=== PATIENT | female | born 1955 | race Caucasian/White ===

== ENCOUNTER 2022-07-25 14:41 | Outpatient (REF) | payer MEDICARE, BC, SELFPAY ==
[2022-07-25 16:56] LABS: MANUAL DIFF FLAG NO
[2022-07-25 17:07] LABS: Basophils Percent Auto 0.3 % (0-2); Eosinophils Absolute Auto 0.1 X10*3/uL (0.0-0.4); Eosinophils Percent Auto 0.7 % (0-4); Hematocrit 51.3 % (37.0-47.0); Hemoglobin 16.3 g/dl (12.0-16.0); Imm Gran Abs Auto 0.03 X10*3/uL (0.00-0.03); Imm Gran Pct Auto 0.4 % (0.0-0.4); Lymphocytes Absolute Auto 0.9 X10*3/uL (1.2-4.9); Lymphocytes Percent Auto 12.2 % (20-40); Mean Corpuscular HGB Conc 31.8 g/dl (31.0-35.0); Mean Corpuscular Hemoglobin 29.3 pg (27.0-33.0); Mean Corpuscular Volume 92.1 fL (80.0-98.0); Mean Platelet Volume 8.8 fL (9.4-12.3); Monocytes Absolute Auto 0.3 X10*3/uL (0.1-1.2); Monocytes Percent Auto 4.5 % (2-11); Neutrophils Absolute Auto 5.8 x10*3/uL (2.0-8.3); Neutrophils Percent Auto 81.9 % (45-73); Platelet Count 251 X10*3/uL (160-400); Red Blood Count 5.57 X10*6/uL (4.20-5.50); White Blood Count 7.1 X10*3/uL (4.8-10.8)
[2022-07-25 17:36] LABS: Alanine Aminotransferase 10 U/L (0-31); Alkaline Phosphatase 43 U/L (39-117); Anion Gap 11 (12-20); Aspartate Amino Transferase 13 U/L (5-31); Bilirubin Total 0.6 mg/dL (0.0-1.0); Blood Urea Nitrogen 12 mg/dL (9-16); C Reactive Protein 0.16 mg/dL (< or = 0.50); Calcium 9.5 mg/dL (8.4-10.2); Carbon Dioxide 32 mmol/L (22-29); Chloride 107 mmol/L (96-108); Estimated Glomerular Filt Rate > 60; Glucose Random 123 mg/dL (60-115); Potassium 4.6 mmol/L (3.3-5.1); Rheumatoid Factor 17.9 IU/mL (<15.0); Sodium 145 mmol/L (135-145); Total Protein 6.1 g/dL (6.5-8.0)
[2022-07-25 17:55] LABS: Erythrocyte Sedimentation Rate 2 MM/HR (0-20)
[2022-07-27 08:31] LABS: HBS Num1 0.21 mIU/mL (0-7.99); HBc Num1 0.12 S/CO (0.00-0.79); HBsAGNum1 0.47 S/CO (0.00-0.99); Hepatitis A Antibody IgM 0.15 Index (0-0.79); Hepatitis B Core Antibody Nonreactive (Nonreactive); Hepatitis B Surface Antigen Negative (Negative); ~HepC Num1 0.06 S/CO (0.00-0.79); ~Hepatitis A Antibody IgM Nonreactive (Nonreactive); ~Hepatitis B Surface Antibody NONREACTIVE (Nonreactive); ~Hepatitis C Antibody Nonreactive (Nonreactive)
[2022-07-27 14:42] LABS: Cyclic Citrullinated Peptide <16 UNITS
[2022-07-27 23:33] LABS: TS Negative Control Passed; TS Panel A 0; TS Panel B 0; TS Positive Control Passed; TSpotTB Negative (Negative)
[2022-07-27 23:48] LABS: Prot Elec - Albumin 4.2 g/dL (3.8-4.8); Prot Elec - Alpha1 0.3 g/dL (0.2-0.3); Prot Elec - Alpha2 0.9 g/dL (0.5-0.9); Prot Elec - Beta 1 0.4 g/dL (0.4-0.6); Prot Elec - Beta 2 0.2 g/dL (0.2-0.5); Prot Elec - Gamma 0.5 g/dL (0.8-1.7); Prot Elec - Total Protein 6.6 g/dL (6.1-8.1)
[2022-07-30 14:03] LABS: IgA 104 mg/dL (70-320); IgG 582 mg/dL (600-1540); IgM 43 mg/dL (50-300)
== END 2022-07-25 14:42 | disposition home or self-care (01) ==
LOC: HO.LAB 14:41
PROVIDERS: PCP Registered Nurse; Visit Provider Student in an Organized Health Care Education/Training Program
DX: M05.79 Rheumatoid arthritis with rheumatoid factor of multiple sites without organ or systems involvement (principal); M25.462 Effusion, left knee; M25.461 Effusion, right knee; M25.562 Pain in left knee; M25.561 Pain in right knee; Z11.59 Encounter for screening for other viral diseases; Z11.7 Encounter for testing for latent tuberculosis infection; Z79.899 Other long term (current) drug therapy; Z72.89 Other problems related to lifestyle
CPT/HCPCS: 36415; 80053; 82784; 84165; 85025; 85652; 86140; 86200; 86334; 86431; 86481; 86704; 86706; 86709; 86803; 87340; 99202

== ENCOUNTER 2022-12-27 15:33 | Outpatient (AMB) | payer MEDICARE, BC, SELFPAY ==
--- NOTE | 2022-12-27 15:47 | MHC.OFFVIS ---
Intake Vital Signs 12/27/22 15:48 Height 5 ft 6 in Weight 156 lb 11.979 oz BMI 25.3 BP 144/78 H Blood Pressure Location Rt brachial Position Sitting Pulse 83 Pulse Source Pulse Oximeter Temp 98.8 F Temp Source Skin Pulse Oximetry (%) 93 Intake Visit Reasons: RA Intake Note: Pt seen today for RA follow up. Clerk Funeral Detail Required: No Accompanied by: Spouse Allergies codeine Allergy (Mild, Verified 12/27/22 15:56) Paleness Gold Salts Allergy (Mild, Verified 12/27/22 15:56) Rash Sulfa (Sulfonamide Antibiotics) Allergy (Mild, Verified 12/27/22 15:56) Swelling Medication List - Last Reconciled 12/27/22 by Willi Wells MD apixaban (Eliquis) 5 mg PO BID biotin 1 mg PO DAILY carvedilol 12.5 mg PO BID cholecalciferol (vitamin D3) 10 mcg PO DAILY escitalopram oxalate 10 mg PO DAILY estradiol 0.01%(0.1mg/gram) grams vaginal NEEDED PRN famotidine 40 mg PO BEDTIME fluticasone propionate 50 mcg/actuation 1 spray intranasal DAILY folic acid 1 mg PO DAILY levothyroxine 88 mcg PO DAILY lidocaine 5% 1 patch topical DAILY lorazepam 0.5 mg PO Q4H PRN methotrexate sodium 15 mg (6 x 2.5 mg) PO QWEEK morphine concentrate 10 mg PO Q8H PRN morphine ER 30 mg PO BID ondansetron 4 mg PO NEEDED pantoprazole 40 mg PO DAILY potassium chloride ER 20 mEq PO BID prednisone 10 mg PO DAILY rituximab-abbs 1,000 mg (100 mL) IV [id number] sennosides 8.6 mg PO BEDTIME syringe with needle (BD Luer-Joselin Syringe) As directed vibegron (Gemtesa) 75 mg PO DAILY HPI HPI Comments History of Present Illness Details 67-year-old female with longstanding deforming RA returns for follow-up. She got her rituximab infusions in 08/2022 and infusions were uneventful. Patient states that she has been having worsening left-sided neck pain associated with left upper shoulder pain, tingling and burning radiating up her the left side of her head. She has difficulty with neck rotation. Her joint pain otherwise is unchanged. Initial history: This is a 67-year-old female with complex past medical history including standing deforming RA who presents as a new patient. Her previous account relationship manager left the practice. Her most recent account relationship manager was Dr. Davis. She stated that she was diagnosed with rheumatoid arthritis back in the 70s. She had an allergic reaction to gold. She was on Remicade, Humira, Enbrel, Orencia. All of which worked for a while then lost their efficacy. She was on Xeljanz for a few years then she developed drug-induced lupus erythematosus per patient. She had diffuse blistering skin rash and hair loss. At that time 6 medicines were discontinued including Xeljanz. Most recently she received rituximab towards the end of 2020 and another rituximab course in 09/2021. Per notes patient seen to have some improvement with rituximab Patient has a history of recurrent diverticulitis. Patient has severe deforming RA s/p multiple surgeries including right elbow replacement, bilateral hand tendon surgeries, right hand MCPs surgeries, right ankle fusion. She had been on prednisone as a monotherapy for years. She is currently on 10 mg daily. She gets recurrent iritis that she treats with topical steroid eyedrops. She states that she gets those recurrent iritis every few months. Patient has been using wheelchair since 2019 due to bilateral knee pain. States that her knees give out . She can walk 1/8of a mile per on a good day. She states that the majority of her joint pain over the last few years has been her knees. She received multiple intra-articular steroid injections last year with some relief. [facility] Medical History Afib Diverticulitis Diverticulosis Drug-induced lupus erythematosus Encounter for testing for latent tuberculosis infection Endometriosis Lacunar infarction Osteopenia of multiple sites Primary osteoarthritis of both knees Rheumatoid arthritis involving multiple sites with positive rheumatoid factor Schatzki's ring Vitamin D deficiency Surgical History H/O cataract extraction H/O elbow replacement H/O hand surgery H/O tubal ligation H/O unilateral oophorectomy History of ankle surgery History of bladder suspension procedure History of cholecystectomy Family History Mother Diabetes Sister Diabetes Pancreatic cancer Father Pancreatic cancer Seizures Social History Household Members: Spouse Alcohol intake: never Patient Tobacco Use Status: Never used Tobacco Current occupational status: disabled Review of Systems ENT Reports neck pain Musc Reports arthralgias, Reports neck pain, Reports radiating pain into limb and Reports stiffness Physical Exam Vital Signs: Last Vital Signs Temp 98.8 F 12/27/22 15:48 Pulse 83 12/27/22 15:48 BP 144/78 H 12/27/22 15:48 Pulse Ox 93 12/27/22 15:48 BMI result Body Mass Index 25.3 Const General: cooperative, healthy appearing and comfortable Nutritional Appearance: overweight Orientation/consciousness: patient oriented x3 Limitations: wheelchair HEENT Head: Yes normocephalic and Yes atraumatic Resp Effort & Inspection: normal respiratory effort and able to speak in complete sentences Neuro General: patient oriented x3 Extrem Other: Extensive RA deformities and multiple surgical procedures Right elbow contracture s/p arthroplasty Right wrist contracture s/p surgery, barely any flexion or extension Bilateral ulnar deviation at the MCPs. 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 L-spine-1.6? Right femoral neck-1.9? Right total hip-2.0? Left femoral neck-1.7? Left total hip -2.2 Assessment & Plan Assessment & Plan (1) Rheumatoid arthritis involving multiple sites with positive rheumatoid factor: Comment: dx in 1970s Gold--> allergic reaction HCQ ineffective MTX caused diarrhea and GI upset even when switched to SQ Remicade, Enbrel, Humira, all worked for sometime then lost their efficacy Orencia Celebrex not effective Xeljanz effective for a few years then DC due to DILE (is unclear we whether it was because Xeljanz as 5 other medicines were stopped) RTX given end of 2020 & 09/2021. 08/2022 effective Code(s): M05.79 - Rheumatoid arthritis with rheumatoid factor of multiple sites without organ or systems involvement Plan: This is a 67 year female with longstanding severe erosive RA s/p multiple surgical procedures who presents for follow-up Patient has tried and failed multiple DMARDs. Please see above. She is currently on rituximab infusions and methotrexate 15 mg weekly and folic acid daily. I do not see any active synovitis today. Recent labs showed normal inflammatory markers Continue rituximab infusions. Plan to repeat infusions every 6-8 months. Check labs before next visit in 3 months (2) Cervicalgia: Code(s): M54.2 - Cervicalgia Plan: Neck muscle spasm on exam today. Will prescribe Flexeril. Advised patient that the combination of muscle relaxants and her other meds can cause lightheadedness/dizziness. Advised patient to stop Flexeril if she develops side effects. Patient has lidocaine patches at home that she uses for her knees. Advised patient to use it on the painful area in her neck. Patient likely has underlying degenerative arthritis of her neck. Will refer patient to pain management for further evaluation (3) Osteopenia of multiple sites: Code(s): M85.89 - Other specified disorders of bone density and structure, multiple sites Plan: DEXA 2020 showed osteopenia. Will repeat DEXA (4) Poor peripheral circulation: Code(s): R09.89 - Other specified symptoms and signs involving the circulatory and respiratory systems Plan: Bilateral purplish cool feet. Advised patient to follow-up with her PCP to evaluate for peripheral vascular disease Plan I spent 46 minutes reviewing patient's chart, evaluating patient, ordering diagnostic workup, counseling patient and documenting in the chart Orders: Orders Comprehensive Met. Panel 3 Months M05.79 - Rheumatoid arthritis with rheumatoid factor of multiple sites without organ or systems involvement C Reactive Protein 3 Months M05.79 - Rheumatoid arthritis with rheumatoid factor of multiple sites without organ or systems involvement Complete Blood Count Auto Diff 3 Months M05.79 - Rheumatoid arthritis with rheumatoid factor of multiple sites without organ or systems involvement Erythrocyte Sedimentation Rate 3 Months M05.79 - Rheumatoid arthritis with rheumatoid factor of multiple sites without organ or systems involvement Immunoglobulins,IgG IgA IgM 3 Months M05.79 - Rheumatoid arthritis with rheumatoid factor of multiple sites without organ or systems involvement XR DEXA axial skeleton Today M85.89 - Other specified disorders of bone density and structure, multiple sites, Z79.52 - detention (current) use of systemic steroids Referrals Pain Management Referral M54.2 - Cervicalgia Medications: New cyclobenzaprine Take 1 tab 3 times a day for 3 days then take 1 tab nightly for 1 week then stop. Can cause dizziness/lightheadedness. If you experience such side effects 16 tabs 0RF Coding Level of Care Code Est Pt Level 5 (32144) Diagnoses Rheumatoid arthritis involving multiple sites with positive rheumatoid factor M05.79 Cervicalgia M54.2 Osteopenia of multiple sites M85.89 Poor peripheral circulation R09.89
[2022-12-27 15:48] VITALS: BP 144/78; PULSE 83; TEMP 37.1; O2SAT 93; BMI 25.3
== END 2022-12-27 16:27 | disposition home or self-care (01) ==
PROVIDERS: PCP Registered Nurse; Visit Provider Student in an Organized Health Care Education/Training Program
DX: M05.79 Rheumatoid arthritis with rheumatoid factor of multiple sites without organ or systems involvement (principal); M54.2 Cervicalgia; M85.89 Other specified disorders of bone density and structure, multiple sites; R09.89 Other specified symptoms and signs involving the circulatory and respiratory systems
CPT/HCPCS: 99215

== ENCOUNTER → 2022-12-27 15:33 | Outpatient (BNVA) | payer MEDICARE, BC, SELFPAY | PROVIDERS: PCP Registered Nurse; Visit Provider Student in an Organized Health Care Education/Training Program | DX: M05.79 Rheumatoid arthritis with rheumatoid factor of multiple sites without organ or systems involvement (principal); M54.2 Cervicalgia; M85.89 Other specified disorders of bone density and structure, multiple sites; R09.89 Other specified symptoms and signs involving the circulatory and respiratory systems | CPT/HCPCS: 99212 ==

== ENCOUNTER 2023-01-10 13:43 | Outpatient (AMB) | payer MEDICARE, BC, SELFPAY ==
--- NOTE | 2023-01-10 13:50 | MHC.OFFVIS ---
Intake Vital Signs 01/10/23 13:56 Height 5 ft 6 in Weight 160 lb 2 oz BMI 25.8 BP 187/85 H Blood Pressure Location Rt brachial Position Sitting Pulse Source Pulse Oximeter Pulse Oximetry (%) 97 Oxygen Delivery Method Room Air Intake Visit Reasons: Cervicalgia Educational Director Required: No Accompanied by: Spouse Allergies codeine Allergy (Mild, Verified 01/10/23 13:58) Paleness Gold Salts Allergy (Mild, Verified 01/10/23 13:58) Rash Sulfa (Sulfonamide Antibiotics) Allergy (Mild, Verified 01/10/23 13:58) Swelling HPI Cervicalgia HPI Details Patient is a pleasant 67 years old female with history of longstanding severe erosive and deforming RA s/p multiple surgical procedures including right elbow replacement, bilateral hand tendon surgeries, right hand MCPs surgeries, right ankle fusion, presents today for initial evaluation of left sided neck pain associated with left upper shoulder pain. Her pain also radiates into her left occipital region and left shoulder with numbness, tinglings and throbbing sensations. Patient is accompanied by her and she has arrived in a wheelchair. Denies any recent injury, trauma, or falls. Patient has difficulty with neck rotation, especially on the left. Patient has multiple joint pain related to RA and has been using a wheelchair since 2019, especially due to bilateral knee pain. She is able to get out of WC without difficulty but with slow, antalgic gait. Pain affects her daily activities, functioning, sleep, mood and quality of life. She has tried to manage her pain with acupuncture, ice therapy, massage, home exercise program with neck stretching exercises, and muscle relaxants with mild pain relief. Patient reports she was told by her neurologist Dr. Schaefer in [facility] that her symptoms are consistent with occipital neuralgia. Denies any recent cough, cold, infection, fever, weight loss, vision changes, shortness of breaths, chest pain, headaches, any bladder or bowel incontinence or saddle anesthesia. Location Left side of neck radiates down left shoulder and occipital region Duration For 4 months, no inciting events Characteristics of symptom or complaint Aching, spasming, numb, throbbing, shocking Aggravating or associated factors Any neck movements, worse with extension and side rotations Relieving factors Flexeril, ice therapy, laying down, morphine, Tylenol, lidocaine patches Treatment Acupunture, massage, home stretching exercises COUNTS INCLUDE 234 BEDS AT THE [facility] Medical History Lacunar infarction Diverticulitis Diverticulosis Endometriosis Schatzki's ring Drug-induced lupus erythematosus Encounter for testing for latent tuberculosis infection Afib Osteopenia of multiple sites Rheumatoid arthritis involving multiple sites with positive rheumatoid factor Vitamin D deficiency Primary osteoarthritis of both knees Surgical History H/O unilateral oophorectomy H/O cataract extraction History of bladder suspension procedure H/O elbow replacement H/O tubal ligation History of cholecystectomy History of ankle surgery H/O hand surgery Family History Mother Diabetes Sister Diabetes Pancreatic cancer Father Pancreatic cancer Seizures Social History Household Members: Spouse Alcohol intake: never Patient Tobacco Use Status: Never used Tobacco Current occupational status: disabled Review of Systems Const All systems reviewed & are unremarkable except as noted in HPI and below Physical Exam Vital Signs: Last Vital Signs BP 187/85 H 01/10/23 13:56 Pulse Ox 97 01/10/23 13:56 Oxygen Delivery Method Room Air 01/10/23 13:56 BMI result Body Mass Index 25.8 General: Appears afebrile. Alert and oriented. Mood and affect appropriate. Follows and participates in conversation appropriately. Respiratory effort is unlabored. No cough. Patient is sitting comfortably in wheelchair with head turned mostly to the right side. Neck Other: Patient with decreased cervical ROM in all planes, especially with left lateral rotation. Reports increased pain with cervical extension and flexion. Spurling compression test negative. Pain is unchanged by Spurling maneuver with retraction. Elvey's tension test positive on the left, with radiation of pain into left shoulder and lateral upper arm and left occipital region. Lhermitte's test was negative. DTR intact, +1 and symmetrical. Patient demonstrated 4/5 motor strength of bilateral upper extremities. Bilateral hand/fingers deformities due to advanced RA. 2 + radial pulses. Significant tightness throughout left upper trapezius as well as TTP throughout bilateral upper trapezius muscles. No paravertebral tenderness over facet joint on affected side. Neck: Yes normal visual inspection, Yes no meningeal signs, Yes supple, No anterior neck swelling and Yes no JVD Back/Spine/Pelvis Cervical Spine: loss of normal cervical lordosis, cervical muscular tenderness, pain with cervical ROM, cervical spasm and No Cervical spine tenderness Thoracic/Lumbar Spine: thoracic and lumbar spine normal to inspection, pain with thoraco-lumbar ROM, thoraco-lumbar ROM limited, No thoracic spinal tenderness and lumbar spinal tenderness Neuro General: no meningeal signs Results Reviewed Results Reviewed: No imaging reports are available for review today. Assessment & Plan Assessment & Plan (1) Osteopenia of multiple sites: Code(s): M85.89 - Other specified disorders of bone density and structure, multiple sites (2) Cervical spondylosis: Code(s): M47.812 - Spondylosis without myelopathy or radiculopathy, cervical region (3) Cervical radicular pain: Code(s): M54.12 - Radiculopathy, cervical region (4) Occipital neuralgia: Code(s): M54.81 - Occipital neuralgia Plan 1. Cervical spine imaging to assess degree of degenerative changes, any subluxation, listhesis or pars defects. 2. Schedule Diagnostic Right C3-[id number] Medial Branch Blocks with local and fluoroscopy for neck/occipital symptoms for potential Sprint PNS trial. Informational pamphlets provided. All questions and concerns have been answered and patient agreed with the plan. Follow up after injections and sooner if needed. Anticoagulation: Patient on anticoagulation (Eliquis) and instructions given on when to pause with prescribing physician permission. Justification for interventional therapy: ? Patient with average pain > 6/10 ? Patient has exhausted conservative therapy, HEP, massage, acupuncture, opioid medication, muscle relaxant The risks, consequences, alternatives, and benefits of various treatment options were discussed with the patient in great detail, including conservative management, injections and procedures. Orders: Orders XR cervical spine 3V Today M47.812 - Spondylosis without myelopathy or radiculopathy, cervical region, M54.12 - Radiculopathy, cervical region, M54.2 - Cervicalgia Coding Level of Care Code New Pt Level 4 (20220) Diagnoses Osteopenia of multiple sites M85.89 Cervical spondylosis M47.812 Cervical radicular pain M54.12 Occipital neuralgia M54.81
[2023-01-10 13:56] VITALS: BP 187/85; O2SAT 97; BMI 25.8
== END 2023-01-10 14:54 | disposition home or self-care (01) ==
PROVIDERS: PCP Registered Nurse; Visit Provider Nurse Practitioner Family
DX: M85.89 Other specified disorders of bone density and structure, multiple sites (principal); M47.812 Spondylosis without myelopathy or radiculopathy, cervical region; M54.12 Radiculopathy, cervical region; M54.81 Occipital neuralgia
CPT/HCPCS: 99204

== ENCOUNTER → 2023-01-10 13:43 | Outpatient (BNVA) | payer MEDICARE, BC, SELFPAY | PROVIDERS: PCP Registered Nurse; Visit Provider Nurse Practitioner Family ==

== ENCOUNTER 2023-01-31 14:14 | Outpatient (REF) | payer MEDICARE, BC, SELFPAY | END 2023-01-31 14:15 | disposition home or self-care (01) | LOC: HO.MAMMO 14:14 | PROVIDERS: Visit Provider Student in an Organized Health Care Education/Training Program | DX: Z13.820 Encounter for screening for osteoporosis (principal); M85.89 Other specified disorders of bone density and structure, multiple sites; Z79.52 Long term (current) use of systemic steroids; Z78.0 Asymptomatic menopausal state | CPT/HCPCS: 77080 ==

== ENCOUNTER 2023-03-08 14:07 | Outpatient (AMB) | payer MEDICARE, BC, SELFPAY ==
--- NOTE | 2023-03-08 14:13 | MHC.OFFVIS ---
Intake Vital Signs 03/08/23 14:14 Height 5 ft 6 in Weight 154 lb 1.65 oz BMI 24.9 BP 122/88 Blood Pressure Location Rt brachial Position Sitting Pulse 93 Pulse Source Pulse Oximeter Temp 98.6 F Temp Source Skin Pulse Oximetry (%) 95 Intake Visit Reasons: RA Intake Note: Pt last seen 12/27/22, presents today for follow up and test results. She did not complete bloodwork ordered at last visit. Voicemail left on 03/06/23 Community Educator Required: No Accompanied by: Spouse Allergies codeine Allergy (Mild, Verified 03/08/23 14:18) Paleness Gold Salts Allergy (Mild, Verified 03/08/23 14:18) Rash Sulfa (Sulfonamide Antibiotics) Allergy (Mild, Verified 03/08/23 14:18) Swelling Medication List - Last Reconciled 03/08/23 by Willi Wells MD apixaban (Eliquis) 5 mg PO BID biotin 1 mg PO DAILY carvedilol 12.5 mg PO BID cholecalciferol (vitamin D3) 10 mcg PO DAILY cyclobenzaprine 5 mg PO TID PRN escitalopram oxalate 10 mg PO DAILY estradiol 0.01%(0.1mg/gram) grams vaginal NEEDED PRN famotidine 40 mg PO BEDTIME fluticasone propionate 50 mcg/actuation 1 spray intranasal DAILY folic acid 1 mg PO DAILY levothyroxine 88 mcg PO DAILY lidocaine 5% 1 patch topical DAILY lorazepam 0.5 mg PO Q4H PRN methotrexate sodium 15 mg (6 x 2.5 mg) PO QWEEK ondansetron 4 mg PO NEEDED pantoprazole 40 mg PO DAILY potassium chloride ER 20 mEq PO BID prednisone 10 mg PO DAILY rituximab-abbs 1,000 mg (100 mL) IV [id number] sennosides 8.6 mg PO BEDTIME syringe with needle (BD Luer-Joselin Syringe) As directed vibegron (Gemtesa) 75 mg PO DAILY HPI HPI Comments History of Present Illness Details 68-year-old female with longstanding deforming RA returns for follow-up. She got her rituximab infusions in 08/2022 and infusions were uneventful. Last visit patient was having significant significant neck muscle pain and spasm. States that the only thing that is helping is the Flexeril. She has been taking Flexeril 5 mg 2-3 times a day with moderate relief. Denies any side effects related to it. She stated that she saw pain management and a nerve block trial was suggested. She then received a call from [facility]. Patient states that she has difficulty leaving the house. She would prefer to do either at home physical therapy or go straight to the nerve block trial. With regards to her RA. She is doing well overall. She denies any swollen joints. Patient states that she was started on morphine 15 mg multiple times a day 2-3 years ago as she was on hospice. She states that she was taking morphine 15 mg twice a day for awhile. Three weeks ago she stopped taking the morning dose, and was doing well. 2-3 days ago she also stopped the night dose and has been having some opioid withdrawal symptoms with night sweats. Initial history: This is a 67-year-old female with complex past medical history including standing deforming RA who presents as a new patient. Her previous pile header left the practice. Her most recent pile header was Dr. Davis. She stated that she was diagnosed with rheumatoid arthritis back in the 70s. She had an allergic reaction to gold. She was on Remicade, Humira, Enbrel, Orencia. All of which worked for a while then lost their efficacy. She was on Xeljanz for a few years then she developed drug-induced lupus erythematosus per patient. She had diffuse blistering skin rash and hair loss. At that time 6 medicines were discontinued including Xeljanz. Most recently she received rituximab towards the end of 2020 and another rituximab course in 09/2021. Per notes patient seen to have some improvement with rituximab Patient has a history of recurrent diverticulitis. Patient has severe deforming RA s/p multiple surgeries including right elbow replacement, bilateral hand tendon surgeries, right hand MCPs surgeries, right ankle fusion. She had been on prednisone as a monotherapy for years. She is currently on 10 mg daily. She gets recurrent iritis that she treats with topical steroid eyedrops. She states that she gets those recurrent iritis every few months. Patient has been using wheelchair since 2019 due to bilateral knee pain. States that her knees give out . She can walk 1/8of a mile per on a good day. She states that the majority of her joint pain over the last few years has been her knees. She received multiple intra-articular steroid injections last year with some relief. [facility] Medical History Lacunar infarction Diverticulitis Diverticulosis Endometriosis Schatzki's ring Drug-induced lupus erythematosus Encounter for testing for latent tuberculosis infection Afib Osteopenia of multiple sites Rheumatoid arthritis involving multiple sites with positive rheumatoid factor Vitamin D deficiency Primary osteoarthritis of both knees Surgical History H/O unilateral oophorectomy H/O cataract extraction History of bladder suspension procedure H/O elbow replacement H/O tubal ligation History of cholecystectomy History of ankle surgery H/O hand surgery Family History Mother Diabetes Sister Diabetes Pancreatic cancer Father Pancreatic cancer Seizures Social History Household Members: Spouse Alcohol intake: never Patient Tobacco Use Status: Never used Tobacco Current occupational status: disabled Review of Systems ENT Reports neck pain Musc Reports arthralgias, Reports neck pain, Reports radiating pain into limb and Reports stiffness Physical Exam Vital Signs: Last Vital Signs Temp 98.6 F 03/08/23 14:14 Pulse 93 03/08/23 14:14 BP 122/88 03/08/23 14:14 Pulse Ox 95 03/08/23 14:14 BMI result Body Mass Index 24.9 Const General: cooperative, healthy appearing and comfortable Nutritional Appearance: overweight Orientation/consciousness: patient oriented x3 Limitations: ambulation with cane HEENT Head: Yes normocephalic and Yes atraumatic Mouth: moist mucous membranes Neck Other: Patient has almost normal range of motion of her neck today Resp Effort & Inspection: normal respiratory effort and able to speak in complete sentences Auscultation: clear to auscultation bilaterally Cardio Rate: regular rate Rhythm: regular rhythm Neuro General: patient oriented x3 Extrem Other: Extensive RA deformities and multiple surgical procedures Right elbow contracture s/p arthroplasty Right wrist contracture s/p surgery, barely any flexion or extension Bilateral ulnar deviation at the MCPs. Good proposition player strength bilaterally No active synovitis today. Good proposition player strength bilaterally Normal nailfold capillaroscopy Right ankle fusion no ankle swelling tenderness or warmth Left ankle without swelling tenderness or erythema bilateral fibular deviation of her toes No MTP tenderness Negative MTP squeeze test Patient is using a cane today rather than a walker Results Reviewed Results Reviewed: DEXA 04/18? L-spine-1.6? Right femoral neck-1.9? Right total hip-2.0? Left femoral neck-1.7? Left total hip -2.2 DEXA 01/2023 L-spine T-score-0.7? Left femoral neck T-score -1.4 Left femur total T-score -2.2 FRAX 29.5 for major osteoporosis fracture? Hip fracture 4.5% Assessment & Plan Assessment & Plan (1) Rheumatoid arthritis involving multiple sites with positive rheumatoid factor: Comment: dx in 1970s Gold--> allergic reaction HCQ ineffective MTX caused diarrhea and GI upset even when switched to SQ Remicade, Enbrel, Humira, all worked for sometime then lost their efficacy Orencia Celebrex not effective Xeljanz effective for a few years then DC due to DILE (is unclear we whether it was because Xeljanz as 5 other medicines were stopped) RTX given end of 2020 & 09/2021. 08/2022 effective Code(s): M05.79 - Rheumatoid arthritis with rheumatoid factor of multiple sites without organ or systems involvement Plan: This is a 68 year female with longstanding severe erosive RA s/p multiple surgical procedures who presents for follow-up Patient has tried and failed multiple DMARDs. Please see above. She is currently on rituximab infusions and methotrexate 15 mg weekly, prednisone 10 mg daily and folic acid daily. She is doing well on this combination. Most recent rituximab was 08/2022. Patient is due for rituximab this month. Will arrange for repeat infusion Planned to start tapering prednisone next visit Check labs soon and before next visit in 3 months (2) Cervicalgia: Code(s): M54.2 - Cervicalgia Plan: Last visit patient had significant neck muscle spasm which is likely due to underlying degenerative arthritis of her cervical spine. There might be a component of occipital migraine. Symptoms are much improved with Flexeril 5 mg t.i.d.. Patient denies any side effects related to it. She can continue with flexeril 5 mg t.i.d.. She was evaluated by Pain Management and a nerve block was suggested. (3) Osteopenia of multiple sites: Code(s): M85.89 - Other specified disorders of bone density and structure, multiple sites Plan: DEXA 01/2023 showed osteopenia with a high FRAX score. Patient did mention that she was on Fosamax for 2 years in the past. Will need to restart antiresorptive therapy. ReStart alendronate 70 mg weekly. Plan to repeat DEXA in the fall of 2024. (4) Opiate withdrawal: Code(s): F11.93 - Opioid use, unspecified with withdrawal Plan: A few years ago patient was told that she was a hospice case. She was prescribed morphine. Most recently she was on morphine 15 mg extended release Twice daily. She stopped the morning dose 3 weeks ago and was doing well, she stopped the night does as well 3 nights ago and was having some mild opioid withdrawal symptoms such as night sweats. I advised patient to keep holding the morphine for 1-2 more weeks, can restart the nightly dose if the withdrawal symptoms are not improving. Advised patient to discuss it with pain management next visit (5) Immunization counseling: Code(s): Z71.85 - Encounter for immunization safety counseling Plan: Discussed ACR vaccination guidelines for understood autoimmune rheumatic disease on immune suppression. Patient is planning to get the new COVID booster and flu vaccines in the same day. Advised patient to get the vaccines done 2 weeks before rituximab infusion Plan I spent 46 minutes reviewing patient's chart, evaluating patient, ordering diagnostic workup, counseling patient and documenting in the chart Orders: Orders Complete Blood Count Auto Diff 3 Months M05.79 - Rheumatoid arthritis with rheumatoid factor of multiple sites without organ or systems involvement Comprehensive Met. Panel 3 Months M05.79 - Rheumatoid arthritis with rheumatoid factor of multiple sites without organ or systems involvement C Reactive Protein 3 Months M05.79 - Rheumatoid arthritis with rheumatoid factor of multiple sites without organ or systems involvement Complete Blood Count Auto Diff Today M05.79 - Rheumatoid arthritis with rheumatoid factor of multiple sites without organ or systems involvement Comprehensive Met. Panel Today M05.79 - Rheumatoid arthritis with rheumatoid factor of multiple sites without organ or systems involvement C Reactive Protein Today M05.79 - Rheumatoid arthritis with rheumatoid factor of multiple sites without organ or systems involvement Erythrocyte Sedimentation Rate Today M05.79 - Rheumatoid arthritis with rheumatoid factor of multiple sites without organ or systems involvement Erythrocyte Sedimentation Rate 3 Months M05.79 - Rheumatoid arthritis with rheumatoid factor of multiple sites without organ or systems involvement Immunofixation Pnl, Serum Today M05.79 - Rheumatoid arthritis with rheumatoid factor of multiple sites without organ or systems involvement Protein Electrophoresis, Serum Today M05.79 - Rheumatoid arthritis with rheumatoid factor of multiple sites without organ or systems involvement Medications: New alendronate Take 1 tab once weekly, 1st thing in the morning, on an empty stomach, with a large glass of water (at least 6 oz) and stay upright for 30 minutes 70 mg PO QWEEK 12 tabs 1RF Refilled cyclobenzaprine 5 mg PO TID PRN 90 tabs 2RF muscle spasm Coding Level of Care Code Est Pt Level 5 (14814) Diagnoses Rheumatoid arthritis involving multiple sites with positive rheumatoid factor M05.79 Cervicalgia M54.2 Osteopenia of multiple sites M85.89 Opiate withdrawal F11.93 Immunization counseling Z71.85
[2023-03-08 14:14] VITALS: BP 122/88; PULSE 93; TEMP 37; O2SAT 95; BMI 24.9
== END 2023-03-08 15:07 | disposition home or self-care (01) ==
PROVIDERS: PCP Registered Nurse; Visit Provider Student in an Organized Health Care Education/Training Program
DX: M05.79 Rheumatoid arthritis with rheumatoid factor of multiple sites without organ or systems involvement (principal); M54.2 Cervicalgia; M85.89 Other specified disorders of bone density and structure, multiple sites; F11.93 Opioid use, unspecified with withdrawal; Z71.85 Encounter for immunization safety counseling
CPT/HCPCS: 99215

== ENCOUNTER 2023-03-08 14:07 | Outpatient (REF) | payer MEDICARE, BC, SELFPAY ==
[2023-03-08 15:34] LABS: MANUAL DIFF FLAG NO
[2023-03-08 16:19] LABS: Basophils Percent Auto 0.4 % (0-2); Eosinophils Absolute Auto 0.1 X10*3/uL (0.0-0.4); Hemoglobin 17.7 g/dl (12.0-16.0); Imm Gran Abs Auto 0.06 X10*3/uL (0.00-0.03); Imm Gran Pct Auto 0.5 % (0.0-0.4); Lymphocytes Absolute Auto 1.4 X10*3/uL (1.2-4.9); Lymphocytes Percent Auto 12.1 % (20-40); Mean Corpuscular HGB Conc 32.1 g/dl (31.0-35.0); Mean Corpuscular Hemoglobin 30.8 pg (27.0-33.0); Mean Corpuscular Volume 95.8 fL (80.0-98.0); Mean Platelet Volume 9.1 fL (9.4-12.3); Monocytes Absolute Auto 0.7 X10*3/uL (0.1-1.2); Monocytes Percent Auto 6.2 % (2-11); Neutrophils Absolute Auto 8.9 x10*3/uL (2.0-8.3); Neutrophils Percent Auto 79.8 % (45-73); Platelet Count 303 X10*3/uL (160-400); Red Blood Count 5.75 X10*6/uL (4.20-5.50); Red Cell Distribution Width 14.4 % (11.0-16.0); White Blood Count 11.1 X10*3/uL (4.8-10.8)
[2023-03-08 16:22] LABS: Hematocrit 55.1 % (37.0-47.0)
[2023-03-08 16:44] LABS: Alanine Aminotransferase 18 U/L (0-31); Albumin Level 4.4 g/dL (3.5-5.0); Alkaline Phosphatase 51 U/L (39-117); Anion Gap 16 (12-20); Aspartate Amino Transferase 23 U/L (5-31); Bilirubin Total 0.5 mg/dL (0.0-1.0); Blood Urea Nitrogen 20 mg/dL (9-16); C Reactive Protein 0.11 mg/dL (< or = 0.50); Calcium 10.3 mg/dL (8.4-10.2); Carbon Dioxide 25 mmol/L (22-29); Chloride 109 mmol/L (96-108); Estimated Glomerular Filt Rate 60; Glucose Random 100 mg/dL (60-115); Potassium 4.6 mmol/L (3.3-5.1); Sodium 145 mmol/L (135-145); Total Protein 7.5 g/dL (6.5-8.0)
[2023-03-08 17:06] LABS: Erythrocyte Sedimentation Rate 1 MM/HR (0-20)
== END 2023-03-08 14:08 | disposition home or self-care (01) ==
LOC: HO.LAB 14:07
PROVIDERS: PCP Registered Nurse; Visit Provider Student in an Organized Health Care Education/Training Program
DX: M05.79 Rheumatoid arthritis with rheumatoid factor of multiple sites without organ or systems involvement (principal); M54.2 Cervicalgia; M85.89 Other specified disorders of bone density and structure, multiple sites; F11.93 Opioid use, unspecified with withdrawal; Z71.82 Exercise counseling
CPT/HCPCS: 36415; 80053; 82784; 84165; 85025; 85652; 86140; 86334; 99212

== ENCOUNTER 2023-03-14 11:38 | Outpatient (REF) | payer MEDICARE, BC, SELFPAY ==
--- NOTE | ~2023-03-14 | XR_ITS ---
EXAMINATION: XR CERVICAL SPINE CLINICAL INFORMATION: Cervical radiculopathy. COMPARISON: None available. TECHNIQUE: Frontal, odontoid and lateral views of the cervical spine were obtained. FINDINGS: There is bony demineralization. There is a slight cervicothoracic levoscoliosis. At C3-C4, there is moderate disc space narrowing. At C5-C6 and C6-C7, there is mild posterior disc space narrowing, with spondylosis. The remaining disc spaces are well-maintained. No acute fracture or spondylolisthesis is seen. The posterior elements are intact. The dens is intact. No prevertebral soft tissue swelling is seen. XR/XR cervical spine 3V IMPRESSION: 1. There is moderate degenerative disc disease at C3-C4, and moderately severe degenerative disc disease seen at C5-C6 and C6-C7. 2. There is a slight cervicothoracic levoscoliosis.
== END 2023-03-14 11:39 | disposition home or self-care (01) ==
LOC: HO.XRAY 11:38
PROVIDERS: PCP Registered Nurse; Visit Provider Nurse Practitioner Family
DX: M47.812 Spondylosis without myelopathy or radiculopathy, cervical region (principal); M54.2 Cervicalgia; M54.12 Radiculopathy, cervical region
CPT/HCPCS: 72040

== ENCOUNTER 2023-03-14 11:39 | Outpatient (AMB) | payer MEDICARE, BC, SELFPAY ==
[2023-03-14 11:39] VITALS: BMI 25.8
--- NOTE | 2023-03-14 11:39 | A.OFFVIS_ITS ---
Intake Vital Signs 3 03/14/23 11:39 Height 5 ft 6 in Weight 160 lb BMI 25.8 Intake Visit Reasons: follow up denial Allergies codeine Allergy (Mild, Verified 03/14/23 11:40) Paleness Gold Salts Allergy (Mild, Verified 03/14/23 11:40) Rash Sulfa (Sulfonamide Antibiotics) Allergy (Mild, Verified 03/14/23 11:40) Swelling HPI HPI Comments 2 History of Present Illness0 Details Patient presents today via telehealth encounter to follow up for chronic neck pain. Patient continues to endorse axial cervical spine neck pain and muscle spasms. Pain radiates to her left occipital area and intermittenly to left shoulder. She takes Flexeril 2-3 days per day without any side effects and Tylenol. Patient has been doing daily home exercise program to increase cervical ROM, strength and improve flexibility as well as has been attending acupuncture therapy for 5 months with temporary symptom relief. Her neck pain is worsened with any neck movements, worse when she looks up or moves her head side to sides as well with prolonged reading. Pain continues to negatively affects her daily functioning and activities, sleep and quality of life. Patient is interested to proceed with diagnostic cervical MBBs for potential Sprint PNS trial or RFA procedures. Denies any recent cough, cold, infection, fever or other significant changes in medical history since last office visit. PRIOR: Patient is a pleasant 67 years old female with history of longstanding severe erosive and deforming RA s/p multiple surgical procedures including right elbow replacement, bilateral hand tendon surgeries, right hand MCPs surgeries, right ankle fusion, presents today for initial evaluation of left sided neck pain associated with left upper shoulder pain. Her pain also radiates into her left occipital region and left shoulder with numbness, tinglings and throbbing sensations. Patient is accompanied by her and she has arrived in a wheelchair. Denies any recent injury, trauma, or falls. Patient has difficulty with neck rotation, especially on the left. Patient has multiple joint pain related to RA and has been using a wheelchair since 2019, especially due to bilateral knee pain. She is able to get out of WC without difficulty but with slow, antalgic gait. Pain affects her daily activities, functioning, sleep, mood and quality of life. She has tried to manage her pain with acupuncture, ice therapy, massage, home exercise program with neck stretching exercises, and muscle relaxants with mild pain relief. Patient reports she was told by her neurologist Dr. Schaefer in [facility] that her symptoms are consistent with occipital neuralgia. Denies any recent cough, cold, infection, fever, weight loss, vision changes, shortness of breaths, chest pain, headaches, any bladder or bowel incontinence or saddle anesthesia. Location Left side of neck radiates down left shoulder and occipital region Duration For 4 months, no inciting events Characteristics of symptom or complaint Aching, spasming, numb, throbbing, shocking Aggravating or associated factors Any neck movements, worse with extension and side rotations Relieving factors Flexeril, ice therapy, laying down, morphine, Tylenol, lidocaine patches Treatment Acupuncture, massage, home stretching exercises Patient's Neck Disability Index score: 34/50=68.0 percent Pertinent Positives per patient: It is painful to look after myself and I am slow and careful; I can read as much as I want to with moderate pain in my neck; I have a fair degree of difficulty in concentrating when I want to; The pain is fairly severe at the moment; Pain prevents me from lifting heavy weights, but I can manage light to medium weights if they are conveniently positioned; I have severe headaches, which come frequently; I can hardly do any work at all; I cannot drive my car at all; My sleep is greatly disturbed (3-5 hrs sleepless); I can't do any recreation activities at all; [facility] Medical History Lacunar infarction Diverticulitis Diverticulosis Endometriosis Schatzki's ring Drug-induced lupus erythematosus Encounter for testing for latent tuberculosis infection Afib Osteopenia of multiple sites Rheumatoid arthritis involving multiple sites with positive rheumatoid factor Vitamin D deficiency Primary osteoarthritis of both knees Surgical History H/O unilateral oophorectomy H/O cataract extraction History of bladder suspension procedure H/O elbow replacement H/O tubal ligation History of cholecystectomy History of ankle surgery H/O hand surgery Family History Mother Diabetes Sister Diabetes Pancreatic cancer Father Pancreatic cancer Seizures Social History Household Members: Spouse Alcohol intake: never Patient Tobacco Use Status: Never used Tobacco Current occupational status: disabled Review of Systems Const All systems reviewed & are unremarkable except as noted in HPI and below ENT Reports Normal hearing present Neuro Reports Normal hearing present and Denies confusion Psych Denies confusion Physical Exam Vital Signs: BMI result Body Mass Index 25.8 Const General: cooperative, alert and awake; No confusion Orientation/consciousness: patient oriented x3 and No confusion Resp Effort & Inspection: able to speak in complete sentences, no audible wheezes and no cough Neuro General: patient oriented x3 and No confusion Cranial nerves: Yes Normal hearing present Cognition (Neuro): normal cognition Psych Mental Status: mental status grossly normal Speech and movement: Clear speech present Affect: normal affect Attitude: cooperative Thought process: Normal thought process present Thought content: Normal thought content present and No Depressive thoughts present Insight: Good insight present (Psych) Judgement: Good judgement present (Psych) Results Reviewed Results Reviewed: Assessment & Plan Assessment & Plan (1) Osteopenia of multiple sites: Code(s): M85.89 - Other specified disorders of bone density and structure, multiple sites (2) Cervical spondylosis: Code(s): M47.812 - Spondylosis without myelopathy or radiculopathy, cervical region (3) Occipital neuralgia: Code(s): M54.81 - Occipital neuralgia (4) Cervicalgia: Code(s): M54.2 - Cervicalgia Plan Patient presents with continued neck symptoms without improvement with conservative treatments, including muscle relaxant, ice therapy, morphine, Tylenol, lidocaine patches, acupuncture, massage, daily home stretching exercises. Axial cervical spine pain has been present for more than 6 months, patient would like to proceed with interventional treatment as previously discussed. 2. Proceed with Diagnostic Right C3-C4-C5 Medial Branch Blocks with local and fluoroscopy for neck/occipital symptoms for potential Sprint PNS trial. We also reviewed cervical medial branch RFA as back up option. Patient has osteopenia and is not good candidate for therapeutic injections. All questions and concerns have been answered and patient agreed with the plan. Follow up after injections and sooner if needed. Anticoagulation: Patient on anticoagulation (Eliquis) and instructions given on when to pause with prescribing physician permission. Justification for interventional therapy: ? Patient with average pain > 6/10 ? Patient has exhausted conservative therapy, HEP, massage, acupuncture, opioid medication, muscle relaxant The risks, consequences, alternatives, and benefits of various treatment options were discussed with the patient in great detail, including conservative management, injections and procedures. I hereby testify that I spent 9 minutes in conversation with this patient as well as with planning and coordinating care for this patient and organizing this note. Telehealth Telehealth Location of provider rendering services: practice address Location of patient: address on file Patient Identification confirmed using: Name, : Yes Telehealth method: voice only Patient verbally consented to treatment: Yes Patient verbally consented to billing insurance company: Yes Patient informed of any privacy concerns related to visit: Yes Minutes spent on Phone/Video with Pt.: 9 Coding Level of Care Code Tele Est Pt Level 3 (91883) Diagnoses Osteopenia of multiple sites M85.89 Cervical spondylosis M47.812 Occipital neuralgia M54.81 Cervicalgia M54.2
== END 2023-03-14 11:53 | disposition home or self-care (01) ==
PROVIDERS: PCP Registered Nurse; Visit Provider Nurse Practitioner Family
DX: M85.89 Other specified disorders of bone density and structure, multiple sites (principal); M47.812 Spondylosis without myelopathy or radiculopathy, cervical region; M54.81 Occipital neuralgia; M54.2 Cervicalgia
CPT/HCPCS: 99441

== ENCOUNTER 2023-05-01 06:01 | Outpatient (REF) | payer MEDICARE, BC, SELFPAY ==
--- NOTE | ~2023-05-01 | FL_ITS ---
EXAMINATION: XR FLUOROSCOPY WITH IMAGES CLINICAL INFORMATION: Spondylosis without myelopathy or radiculopathy, cervical region. COMPARISON: None available. TECHNIQUE: Fluoroscopy Supervised By: Dr. Ricky Ortiz. Fluoroscopy Time: 0.4 minutes. Cumulative Dose: 1.84 mGy. DAP: 0.260 Gycm2. Images: 4. FINDINGS: Images demonstrate needle placement and contrast injection over the bilateral lateral mid cervical spine FL/FL guidance in treatment room IMPRESSION: Fluoroscopy guidance for pain management procedure.
== END 2023-05-01 06:02 | disposition home or self-care (01) ==
LOC: CF 06:01
PROVIDERS: Visit Provider Internal Medicine
DX: M47.812 Spondylosis without myelopathy or radiculopathy, cervical region (principal)
CPT/HCPCS: 64490; 64491; J2795; Q9967

== ENCOUNTER 2023-05-01 10:35 | Outpatient (AMB) | payer MEDICARE, BC, SELFPAY ==
[2023-05-01 10:40] VITALS: BP 126/60; PULSE 85; RESP 12; O2SAT 95
--- NOTE | 2023-05-01 10:40 | MHC.OFFVIS ---
Intake Vital Signs 05/01/23 10:40 05/01/23 11:24 BP 126/60 124/84 Blood Pressure Location Lt brachial Rt brachial Position Sitting Sitting Respiration 12 12 Pulse 85 80 Pulse Source Pulse Oximeter Pulse Oximeter Pulse Oximetry (%) 95 95 Oxygen Delivery Method Room Air Room Air Intake Visit Reasons: Left Dx C3-C4-C5 MBB Allergies codeine Allergy (Mild, Verified 05/01/23 10:40) Paleness Gold Salts Allergy (Mild, Verified 05/01/23 10:40) Rash Sulfa (Sulfonamide Antibiotics) Allergy (Mild, Verified 05/01/23 10:40) Swelling HPI Left Dx C3-C4-C5 MBB HPI Details Patient presents for scheduled procedure. Denies any recent cough, cold, infection, fever or other significant changes in medical history since last office visit. She is interested in undergoing bilateral diagnostic procedure today if possible. Since she is also on anticoagulation with apixaban that requires to be stopped for each procedure, we will proceed with bilateral cervical diagnostic medial branch blocks today and cancel her appointment for the right-sided blocks next week. [facility] Medical History Lacunar infarction Diverticulitis Diverticulosis Endometriosis Schatzki's ring Drug-induced lupus erythematosus Encounter for testing for latent tuberculosis infection Afib Osteopenia of multiple sites Rheumatoid arthritis involving multiple sites with positive rheumatoid factor Vitamin D deficiency Primary osteoarthritis of both knees Surgical History H/O unilateral oophorectomy H/O cataract extraction History of bladder suspension procedure H/O elbow replacement H/O tubal ligation History of cholecystectomy History of ankle surgery H/O hand surgery Family History Mother Diabetes Sister Diabetes Pancreatic cancer Father Pancreatic cancer Seizures Social History Household Members: Spouse Alcohol intake: never Patient Tobacco Use Status: Never used Tobacco Current occupational status: disabled Physical Exam Vital Signs: Last Vital Signs Pulse 80 05/01/23 11:24 Resp 12 05/01/23 11:24 BP 124/84 05/01/23 11:24 Pulse Ox 95 05/01/23 11:24 Oxygen Delivery Method Room Air 05/01/23 11:24 Office Procedures Cervical/Thoracic Facet Inj Details: Diagnostic Cervical Medial Branch Block, Bilateral C3, C4, C5 medial branches After obtaining written consent, pre-procedure blood pressure and pulse were recorded and are in the nursing record for review. The patient was placed in a lateral position. The respective cervical area was prepped with chloraprep and draped in sterile fashion. The skin over the target medial branch nerves was anesthetized with 0.5% lidocaine. A 25 gauge 1.5 inch needle was inserted into the target medial branch nerve under fluoroscopic guidance. No paresthesias were elicited with needle placement and aspiration was negative for blood and CSF. Next, 0.2cc of omnipaque 180 was injected to verify positioning. Next 0.5 ml 0.5% ropivicaine was injected (0.5 cc total per level). The identical procedure was performed at the remaining levels and on the other side. The skin was cleansed and a sterile bandage was applied. Following the procedure the patient's vital signs were stable. The patient tolerated the procedure well and no complications were encountered. Following the procedure the patient's vital signs were stable. The patient was discharged home in good condition with post-procedural instructions. Time Out: Immediately prior to the procedure, the following was verbally confirmed that there is a signed consent form and that the correct patient, planned procedure, site and side are consistent with documentation and that necessary equipment and/or blood products are available prior to the start of the case. Complications: none EBL: <5 cc 22261 - second level, with Fluoroscopy (bilateral) Procedure code (CPT) selection complete Assessment & Plan Assessment & Plan (1) Cervical spondylosis: Code(s): M47.812 - Spondylosis without myelopathy or radiculopathy, cervical region Plan Patient is status post bilateral cervical C3, C4, C5 medial branch blocks. Patient tolerated procedure well and was discharged home in stable condition with discharge instructions. All questions were answered. If she has a positive diagnostic response to these injections, we will submit PA for radiofrequency ablation instead of repeating a 2nd round of medial branch block since the patient is on Eliquis with associated comorbidity of frequent stopping/starting anticoagulation. Orders: Orders FL guidance in treatment room 05/01/23 M47.812 - Spondylosis without myelopathy or radiculopathy, cervical region Coding Level of Care Code Procedure Only Diagnoses Cervical spondylosis M47.812 CPT Codes Facet Injection Cervical/Thoracic - CPT: 79969 - second level, with Fluoroscopy ([id number])
[2023-05-01 11:24] VITALS: BP 124/84; PULSE 80; RESP 12; O2SAT 95
== END 2023-05-01 11:19 | disposition home or self-care (01) ==
LOC: HO.PMCPRC 10:35
PROVIDERS: PCP Nurse Practitioner Family; Visit Provider Internal Medicine
DX: M47.812 Spondylosis without myelopathy or radiculopathy, cervical region (principal)
CPT/HCPCS: 64490; 64491

== ENCOUNTER 2023-05-10 12:51 | Outpatient (AMB) | payer MEDICARE, BC, SELFPAY ==
--- NOTE | 2023-05-10 12:53 | A.OFFVIS_ITS ---
Intake Vital Signs 3 05/10/23 13:00 Height 5 ft 6 in Weight 160 lb BMI 25.8 BP 189/85 H Blood Pressure Location Rt brachial Position Sitting Pulse 80 Pulse Source Pulse Oximeter Pulse Oximetry (%) 98 Oxygen Delivery Method Room Air Intake Visit Reasons: s/p dian Dx C3-C4-C5 MBB/lvm Intake Note: Pain today 09/05 Clinical Editor Required: No Accompanied by: Unknown Allergies codeine Allergy (Mild, Verified 05/10/23 13:00) Paleness Gold Salts Allergy (Mild, Verified 05/10/23 13:00) Rash Sulfa (Sulfonamide Antibiotics) Allergy (Mild, Verified 05/10/23 13:00) Swelling HPI HPI Comments 2 History of Present Illness0 Details Patient presents today to assess response to Diagnostic Cervical Medial Branch Block, Bilateral C3, C4, C5 medial branches 05/01/[address] Ortiz. Patient reports 90% pain relief for 2 days with improved functioning and better sleep. She is interested to proceed with cervical medial branch RFA as next steps for a longer pain relief. Since patient is on Eliquis with associated comorbidity of frequent stopping and restarting anticoagulation, we will submit PA for radiofrequency ablation instead of repeating a second round of medial branch block. Denies any recent cough, cold, infection, fever or other significant changes in medical history since last office visit. Patient reports she is monitoring her BP and was started on new medication yesterday. Family reports BP medication is losartan but cannot recall the dosage. Denies any chest pain, dizziness, headache, shortness of breaths, chest pressure or tightness. Past Procedures: 05/01/23: Diagnostic Bilateral C3-C4-C5 MBBs-90% pain relief for 2 days PRIOR: Patient presents today via telehealth encounter to follow up for chronic neck pain. Patient continues to endorse axial cervical spine neck pain and muscle spasms. Pain radiates to her left occipital area and intermittenly to left shoulder. She takes Flexeril 2-3 days per day without any side effects and Tylenol. Patient has been doing daily home exercise program to increase cervical ROM, strength and improve flexibility as well as has been attending acupuncture therapy for 5 months with temporary symptom relief. Her neck pain is worsened with any neck movements, worse when she looks up or moves her head side to sides as well with prolonged reading. Pain continues to negatively affects her daily functioning and activities, sleep and quality of life. Patient is interested to proceed with diagnostic cervical MBBs for potential Sprint PNS trial or RFA procedures. Denies any recent cough, cold, infection, fever or other significant changes in medical history since last office visit. PRIOR: Patient is a pleasant 67 years old female with history of longstanding severe erosive and deforming RA s/p multiple surgical procedures including right elbow replacement, bilateral hand tendon surgeries, right hand MCPs surgeries, right ankle fusion, presents today for initial evaluation of left sided neck pain associated with left upper shoulder pain. Her pain also radiates into her left occipital region and left shoulder with numbness, tinglings and throbbing sensations. Patient is accompanied by her and she has arrived in a wheelchair. Denies any recent injury, trauma, or falls. Patient has difficulty with neck rotation, especially on the left. Patient has multiple joint pain related to RA and has been using a wheelchair since 2019, especially due to bilateral knee pain. She is able to get out of WC without difficulty but with slow, antalgic gait. Pain affects her daily activities, functioning, sleep, mood and quality of life. She has tried to manage her pain with acupuncture, ice therapy, massage, home exercise program with neck stretching exercises, and muscle relaxants with mild pain relief. Patient reports she was told by her neurologist Dr. Schaefer in [facility] that her symptoms are consistent with occipital neuralgia. Denies any recent cough, cold, infection, fever, weight loss, vision changes, shortness of breaths, chest pain, headaches, any bladder or bowel incontinence or saddle anesthesia. Location Left side of neck radiates down left shoulder and occipital region Duration For 4 months, no inciting events Characteristics of symptom or complaint Aching, spasming, numb, throbbing, shocking Aggravating or associated factors Any neck movements, worse with extension and side rotations Relieving factors Flexeril, ice therapy, laying down, morphine, Tylenol, lidocaine patches Treatment Acupuncture, massage, home stretching exercises Patient's Neck Disability Index score: 34/50=68.0 percent Pertinent Positives per patient: It is painful to look after myself and I am slow and careful; I can read as much as I want to with moderate pain in my neck; I have a fair degree of difficulty in concentrating when I want to; The pain is fairly severe at the moment; Pain prevents me from lifting heavy weights, but I can manage light to medium weights if they are conveniently positioned; I have severe headaches, which come frequently; I can hardly do any work at all; I cannot drive my car at all; My sleep is greatly disturbed (3-5 hrs sleepless); I can't do any recreation activities at all; [facility] Medical History Lacunar infarction Diverticulitis Diverticulosis Endometriosis Schatzki's ring Drug-induced lupus erythematosus Encounter for testing for latent tuberculosis infection Afib Osteopenia of multiple sites Rheumatoid arthritis involving multiple sites with positive rheumatoid factor Vitamin D deficiency Primary osteoarthritis of both knees Surgical History H/O unilateral oophorectomy H/O cataract extraction History of bladder suspension procedure H/O elbow replacement H/O tubal ligation History of cholecystectomy History of ankle surgery H/O hand surgery Family History Mother Diabetes Sister Diabetes Pancreatic cancer Father Pancreatic cancer Seizures Social History Household Members: Spouse Alcohol intake: never Patient Tobacco Use Status: Never used Tobacco Current occupational status: disabled Review of Systems Const All systems reviewed & are unremarkable except as noted in HPI and below Physical Exam Vital Signs: Last Vital Signs Pulse 80 05/10/23 13:00 BP 189/85 H 05/10/23 13:00 Pulse Ox 98 05/10/23 13:00 Oxygen Delivery Method Room Air 05/10/23 13:00 BMI result Body Mass Index 25.8 General: Appears afebrile. Alert and oriented. Mood and affect appropriate. Follows and participates in conversation appropriately. Respiratory effort is unlabored. No cough. Patient is sitting comfortably in wheelchair with head turned mostly to the right side. Neck Neck: Yes normal visual inspection, Yes no lymphadenopathy, Yes no meningeal signs, Yes supple, No anterior neck swelling and Yes no JVD Back/Spine/Pelvis Cervical Spine: loss of normal cervical lordosis, cervical muscular tenderness, pain with cervical ROM (increased pain in all planes, worse with right rotation), cervical spasm and No Cervical spine tenderness Thoracic/Lumbar Spine: thoracic and lumbar spine normal to inspection, pain with thoraco-lumbar ROM, thoraco-lumbar ROM limited, No thoracic spinal tenderness and lumbar spinal tenderness Neuro General: no meningeal signs Results Reviewed Results Reviewed: XR CERVICAL SPINE 03/14/23 CLINICAL INFORMATION: Cervical radiculopathy. FINDINGS: There is bony demineralization. There is a slight cervicothoracic levoscoliosis. At C3-C4, there is moderate disc space narrowing. At C5-C6 and C6-C7, there is mild posterior disc space narrowing, with spondylosis. The remaining disc spaces are well-maintained. No acute fracture or spondylolisthesis is seen. The posterior elements are intact. The dens is intact. No prevertebral soft tissue swelling is seen. IMPRESSION: 1. There is moderate degenerative disc disease at C3-C4, and moderately severe degenerative disc disease seen at C5-C6 and C6-C7. 2. There is a slight cervicothoracic levoscoliosis. Assessment & Plan Assessment & Plan (1) Cervical spondylosis: Code(s): M47.812 - Spondylosis without myelopathy or radiculopathy, cervical region (2) Osteopenia of multiple sites: Code(s): M85.89 - Other specified disorders of bone density and structure, multiple sites (3) Occipital neuralgia: Code(s): M54.81 - Occipital neuralgia (4) Cervicalgia: Code(s): M54.2 - Cervicalgia Plan Patient had good results results with bilateral diagnostic C3-C4-C5 MBBs on 05/01/23, providing her 90% pain relief for 2 days with significant improvement in her functioning and sleep. She is interested to proceed with cervical medial branch RFA as next steps for a longer term pain relief. Since patient is on Eliquis with associated comorbidity of frequent stopping and restarting anticoagulation, we will submit PA for radiofrequency ablation instead of repeating a second round of medial branch block. Schedule Bilateral C3-C4-C5 Medial Branch RFA with sedation and fluoroscopy for chronic neck pain. Patient has osteopenia and is not good candidate for therapeutic injections. She is not interested in Sprint PNS trial. All questions and concerns have been answered and patient agreed with the plan. Follow up after RFA procedure and sooner as needed. Anticoagulation: Patient on anticoagulation (Eliquis) and instructions given on when to pause with prescribing physician permission. Justification for interventional therapy: ? Patient with average pain > 6/10 ? Patient has exhausted conservative therapy, HEP, massage, acupuncture, opioid medication, muscle relaxant ? Diagnostic Cervical MBBs injections-90% pain relief for 2 days The risks, consequences, alternatives, and benefits of various treatment options were discussed with the patient in great detail, including conservative management, injections and procedures. Coding Level of Care Code Est Pt Level 3 (72656) Diagnoses Cervical spondylosis M47.812 Osteopenia of multiple sites M85.89 Occipital neuralgia M54.81 Cervicalgia M54.2
[2023-05-10 13:00] VITALS: BP 189/85; PULSE 80; O2SAT 98; BMI 25.8
== END 2023-05-10 13:24 | disposition home or self-care (01) ==
PROVIDERS: PCP Registered Nurse; Visit Provider Nurse Practitioner Family
DX: M47.812 Spondylosis without myelopathy or radiculopathy, cervical region (principal); M85.89 Other specified disorders of bone density and structure, multiple sites; M54.81 Occipital neuralgia; M54.2 Cervicalgia
CPT/HCPCS: 99213

== ENCOUNTER → 2023-05-10 12:51 | Outpatient (BNVA) | payer MEDICARE, BC, SELFPAY | PROVIDERS: PCP Registered Nurse; Visit Provider Nurse Practitioner Family | DX: M47.812 Spondylosis without myelopathy or radiculopathy, cervical region (principal); M85.89 Other specified disorders of bone density and structure, multiple sites; M54.81 Occipital neuralgia; M54.2 Cervicalgia | CPT/HCPCS: 99212 ==

== ENCOUNTER 2023-06-20 06:11 | Outpatient (REF) | payer MEDICARE, BC, SELFPAY ==
--- NOTE | ~2023-06-20 | FL_ITS ---
EXAMINATION: XR FLUOROSCOPY WITH IMAGES CLINICAL INFORMATION: Bilateral cervical injection. Left performed first COMPARISON: None available. TECHNIQUE: Fluoroscopy Supervised By: Raina Guerra. Fluoroscopy Time: 0.3 minutes. Cumulative Dose: 3.55 mGy. DAP: 0.402 Gycm2. Images: 4. FINDINGS: There are 4 digital images obtained revealing needle positioned adjacent to bilateral C4, C5 and C6 lamina with contrast opacifying the soft tissues. Mild loss of C5-6 disc height is seen. No aggressive lytic or sclerotic process seen. FL/FL guidance in treatment room IMPRESSION: Fluoroscopy guidance was provided to referring physician for pain management.
[2023-06-20 14:22] LABS: MANUAL DIFF FLAG NO
[2023-06-20 15:19] LABS: Basophils Percent Auto 0.4 % (0-2); Eosinophils Absolute Auto 0.2 X10*3/uL (0.0-0.4); Eosinophils Percent Auto 1.4 % (0-4); Hematocrit 50.9 % (37.0-47.0); Hemoglobin 16.5 g/dl (12.0-16.0); Imm Gran Abs Auto 0.05 X10*3/uL (0.00-0.03); Imm Gran Pct Auto 0.5 % (0.0-0.4); Mean Corpuscular HGB Conc 32.4 g/dl (31.0-35.0); Mean Corpuscular Hemoglobin 31.4 pg (27.0-33.0); Mean Corpuscular Volume 96.8 fL (80.0-98.0); Mean Platelet Volume 9.3 fL (9.4-12.3); Monocytes Absolute Auto 0.5 X10*3/uL (0.1-1.2); Monocytes Percent Auto 4.1 % (2-11); Neutrophils Absolute Auto 9.2 x10*3/uL (2.0-8.3); Neutrophils Percent Auto 84.6 % (45-73); Platelet Count 246 X10*3/uL (160-400); Red Blood Count 5.26 X10*6/uL (4.20-5.50); Red Cell Distribution Width 13.1 % (11.0-16.0); White Blood Count 10.9 X10*3/uL (4.8-10.8)
[2023-06-20 15:32] LABS: Alanine Aminotransferase 16 U/L (0-31); Albumin Level 4.1 g/dL (3.5-5.0); Alkaline Phosphatase 38 U/L (39-117); Anion Gap 13 (12-20); Aspartate Amino Transferase 14 U/L (5-31); Bilirubin Total 0.8 mg/dL (0.0-1.0); Blood Urea Nitrogen 20 mg/dL (9-16); C Reactive Protein 0.21 mg/dL (< or = 0.50); Calcium 9.9 mg/dL (8.4-10.2); Carbon Dioxide 28 mmol/L (22-29); Chloride 106 mmol/L (96-108); Estimated Glomerular Filt Rate > 60; Glucose Random 103 mg/dL (60-115); Sodium 143 mmol/L (135-145); Total Protein 6.6 g/dL (6.5-8.0)
[2023-06-20 16:03] LABS: Erythrocyte Sedimentation Rate 2 MM/HR (0-20)
[2023-06-24 10:53] LABS: Prot Elec - Albumin 3.8 g/dL (3.8-4.8); Prot Elec - Alpha1 0.3 g/dL (0.2-0.3); Prot Elec - Alpha2 0.9 g/dL (0.5-0.9); Prot Elec - Beta 1 0.4 g/dL (0.4-0.6); Prot Elec - Beta 2 0.3 g/dL (0.2-0.5); Prot Elec - Gamma 0.5 g/dL (0.8-1.7); Prot Elec - Total Protein 6.1 g/dL (6.1-8.1)
[2023-06-25 12:29] LABS: IgA 88 mg/dL (70-320); IgG 565 mg/dL (600-1540); IgM 37 mg/dL (50-300)
== END 2023-06-20 06:12 | disposition home or self-care (01) ==
LOC: HO.LAB 06:11
PROVIDERS: Student in an Organized Health Care Education/Training Program; Visit Provider Internal Medicine
DX: M05.79 Rheumatoid arthritis with rheumatoid factor of multiple sites without organ or systems involvement (principal); M47.812 Spondylosis without myelopathy or radiculopathy, cervical region; M54.2 Cervicalgia; M85.89 Other specified disorders of bone density and structure, multiple sites; G47.33 Obstructive sleep apnea (adult) (pediatric); Z79.631 Long term (current) use of antimetabolite agent
CPT/HCPCS: 36415; 64490; 64491; 80053; 82784; 84165; 85025; 85652; 86140; 86334; 99212; J2795; Q9967

== ENCOUNTER 2023-06-20 12:51 | Outpatient (AMB) | payer MEDICARE, BC, SELFPAY ==
[2023-06-20 12:50] VITALS: BP 142/88; PULSE 72; RESP 16; O2SAT 98; BMI 25.8
--- NOTE | 2023-06-20 12:50 | MHC.OFFVIS ---
Intake Vital Signs 06/20/23 12:50 06/20/23 14:00 Height 5 ft 6 in Weight 160 lb BMI 25.8 BP 142/88 H 148/90 H Blood Pressure Location Lt brachial Lt brachial Position Sitting Sitting Respiration 16 16 Pulse 72 76 Pulse Source Pulse Oximeter Pulse Oximeter Pulse Oximetry (%) 98 99 Oxygen Delivery Method Room Air Room Air Comment Pre-Op Post-Op Intake Visit Reasons: dian dx C3-C4-C5 MBB Allergies codeine Allergy (Mild, Verified 05/10/23 13:00) Paleness Gold Salts Allergy (Mild, Verified 05/10/23 13:00) Rash Sulfa (Sulfonamide Antibiotics) Allergy (Mild, Verified 05/10/23 13:00) Swelling HPI dian dx C3-C4-C5 MBB HPI Details Patient presents for scheduled procedure. Denies any recent cough, cold, infection, fever or other significant changes in medical history since last office visit. [facility] Medical History Lacunar infarction Diverticulitis Diverticulosis Endometriosis Schatzki's ring Drug-induced lupus erythematosus Encounter for testing for latent tuberculosis infection Afib Osteopenia of multiple sites Rheumatoid arthritis involving multiple sites with positive rheumatoid factor Vitamin D deficiency Primary osteoarthritis of both knees Surgical History H/O unilateral oophorectomy H/O cataract extraction History of bladder suspension procedure H/O elbow replacement H/O tubal ligation History of cholecystectomy History of ankle surgery H/O hand surgery Family History Mother Diabetes Sister Diabetes Pancreatic cancer Father Pancreatic cancer Seizures Social History Household Members: Spouse Alcohol intake: never Patient Tobacco Use Status: Never used Tobacco Current occupational status: disabled Physical Exam Vital Signs: Last Vital Signs Pulse 76 06/20/23 14:00 Resp 16 06/20/23 14:00 BP 148/90 H 06/20/23 14:00 Pulse Ox 99 06/20/23 14:00 Oxygen Delivery Method Room Air 06/20/23 14:00 BMI result Body Mass Index 25.8 Office Procedures Cervical/Thoracic Facet Inj Details: Diagnostic Cervical Medial Branch Block, bilateral C4, C5, C6 medial branches After obtaining written consent, pre-procedure blood pressure and pulse were recorded and are in the nursing record for review. The patient was placed in a lateral position. The respective cervical area was prepped with chloraprep and draped in sterile fashion. A 25 gauge 1.5 inch needle was inserted into the target medial branch nerve under fluoroscopic guidance. No paresthesias were elicited with needle placement and aspiration was negative for blood and CSF. Next, 0.2cc of omnipaque 180 was injected to verify positioning. Next 0.5 ml 0.5% ropivicaine was injected (0.5 cc total per level). The identical procedure was performed at the remaining levels. The skin was cleansed and a sterile bandage was applied. Following the procedure the patient's vital signs were stable. The patient tolerated the procedure well and no complications were encountered. Following the procedure the patient's vital signs were stable. The patient was discharged home in good condition with post-procedural instructions. Time Out: Immediately prior to the procedure, the following was verbally confirmed that there is a signed consent form and that the correct patient, planned procedure, site and side are consistent with documentation and that necessary equipment and/or blood products are available prior to the start of the case. Complications: none EBL: <5 cc 67560 - second level, with Fluoroscopy (bilateral) Procedure code (CPT) selection complete Assessment & Plan Assessment & Plan (1) Cervical spondylosis: Code(s): M47.812 - Spondylosis without myelopathy or radiculopathy, cervical region Plan Patient is status post bilateral C4, C5, C6 diagnostic medial branch blocks. Patient tolerated procedure well and was discharged home in stable condition with discharge instructions. All questions were answered. We will follow-up via telephone or in clinic to assess response to therapy. A follow-up appointment was made during today's visit. Orders: Orders FL guidance in treatment room Today M47.812 - Spondylosis without myelopathy or radiculopathy, cervical region Coding Level of Care Code Procedure Only Diagnoses Cervical spondylosis M47.812 CPT Codes Facet Injection Cervical/Thoracic - CPT: 66954 - second level, with Fluoroscopy ([id number])
[2023-06-20 14:00] VITALS: BP 148/90; PULSE 76; RESP 16; O2SAT 99
== END 2023-06-20 13:56 | disposition home or self-care (01) ==
LOC: HO.PMCPRC 12:52
PROVIDERS: PCP Registered Nurse; Visit Provider Internal Medicine
DX: M47.812 Spondylosis without myelopathy or radiculopathy, cervical region (principal)
CPT/HCPCS: 64490; 64491

== ENCOUNTER 2023-06-20 15:17 | Outpatient (AMB) | payer MEDICARE, BC, SELFPAY ==
--- NOTE | 2023-06-20 15:26 | A.OFFVIS_ITS ---
Intake Vital Signs 06/20/23 15:31 Height 5 ft 6 in BMI Reason not done Patient refused/unable BP 134/76 Blood Pressure Location Lt brachial Position Sitting Pulse 81 Pulse Source Pulse Oximeter Temp 97.6 F Temp Source Skin Pulse Oximetry (%) 92 Oxygen Delivery Method Room Air Intake Visit Reasons: RA Intake Note: Patient last seen 03/08/23 presents today for follow up and test results. 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 Accompanied by: Spouse Allergies codeine Allergy (Mild, Verified 06/20/23 15:43) Paleness Gold Salts Allergy (Mild, Verified 06/20/23 15:43) Rash Sulfa (Sulfonamide Antibiotics) Allergy (Mild, Verified 06/20/23 15:43) Swelling Medication List - Last Reconciled 06/20/23 by Willi Wells MD alendronate 70 mg PO QWEEK apixaban (Eliquis) 5 mg PO BID biotin 1 mg PO DAILY carvedilol 12.5 mg PO BID cholecalciferol (vitamin D3) 10 mcg PO DAILY cyclobenzaprine 5 mg PO TID PRN escitalopram oxalate 10 mg PO DAILY estradiol 0.01%(0.1mg/gram) grams vaginal NEEDED PRN famotidine 40 mg PO BEDTIME fluticasone propionate 50 mcg/actuation 1 spray intranasal DAILY folic acid 1 mg PO DAILY levothyroxine 88 mcg PO DAILY lidocaine 5% 1 patch topical DAILY lorazepam 0.5 mg PO Q4H PRN losartan 25 mg PO DAILY methotrexate sodium 15 mg (6 x 2.5 mg) PO QWEEK ondansetron 4 mg PO NEEDED pantoprazole 40 mg PO DAILY potassium chloride ER 20 mEq PO BID prednisone 10 mg PO DAILY rituximab-abbs 1,000 mg (100 mL) IV [id number] sennosides 8.6 mg PO BEDTIME syringe with needle (BD Luer-Joselin Syringe) As directed vibegron (Gemtesa) 75 mg PO DAILY HPI HPI Comments History of Present Illness Details 68-year-old female with longstanding def orming RA returns for follow-up with her . She got her rituximab infusions in 03/2023 and infusions were uneventful. She remains on methotrexate 15 mg weekly, folic acid daily, prednisone 10 mg daily and alendronate weekly. She is in the process of getting cervical branch block trials by Pain Management. The goal is to do radiofrequency ablation. Per recently patient has been a little bit more weak. At night she snores loudly and sometimes stops breathing and gasps for air. He states that she was diagnosed with sleep apnea in the past and they bought a CPAP machine more than 5 years ago but she has not been able to use it. Her RA is doing fairly well overall. Initial history: This is a 67-year-old female with complex past medical history including standing deforming RA who presents as a new patient. Her previous header operator left the practice. Her most recent header operator was Dr. Davis. She stated that she was diagnosed with rheumatoid arthritis back in the 70s. She had an allergic reaction to gold. She was on Remicade, Humira, Enbrel, Orencia. All of which worked for a while then lost their efficacy. She was on Xeljanz for a few years then she developed drug-induced lupus erythematosus per patient. She had diffuse blistering skin rash and hair loss. At that time 6 medicines were discontinued including Xeljanz. Most recently she received rituximab towards the end of 2020 and another rituximab course in 09/2021. Per notes patient seen to have some improvement with rituximab Patient has a history of recurrent diverticulitis. Patient has severe deforming RA s/p multiple surgeries including right elbow replacement, bilateral hand tendon surgeries, right hand MCPs surgeries, right ankle fusion. She had been on prednisone as a monotherapy for years. She is currently on 10 mg daily. She gets recurrent iritis that she treats with topical steroid eyedrops. She states that she gets those recurrent iritis every few months. Patient has been using wheelchair since 2019 due to bilateral knee pain. States that her knees give out . She can walk 1/8of a mile per on a good day. She states that the majority of her joint pain over the last few years has been her knees. She received multiple intra-articular steroid injections last year with some relief. [facility], [facility] Medical History (Updated 06/20/23 @ 16:19 by Willi Wells MD) Lacunar infarction Diverticulitis Diverticulosis Endometriosis Schatzki's ring Drug-induced lupus erythematosus Encounter for testing for latent tuberculosis infection Afib Osteopenia of multiple sites Rheumatoid arthritis involving multiple sites with positive rheumatoid factor Vitamin D deficiency Primary osteoarthritis of both knees Surgical History H/O unilateral oophorectomy H/O cataract extraction History of bladder suspension procedure H/O elbow replacement H/O tubal ligation History of cholecystectomy History of ankle surgery H/O hand surgery Family History Mother Diabetes Sister Diabetes Pancreatic cancer Father Pancreatic cancer Seizures Social History Household Members: Spouse Alcohol intake: never Patient Tobacco Use Status: Never used Tobacco Current occupational status: disabled Review of Systems Const Reports weakness ENT Reports neck pain Resp Details: snoring Musc Reports neck pain, Reports radiating pain into limb and Reports stiffness Neuro Reports weakness Physical Exam Vital Signs: Last Vital Signs Temp 97.6 F 06/20/23 15:31 Pulse 81 06/20/23 15:31 BP 134/76 06/20/23 15:31 Pulse Ox 92 06/20/23 15:31 Oxygen Delivery Method Room Air 06/20/23 15:31 Const General: cooperative, healthy appearing and comfortable Nutritional Appearance: overweight Orientation/consciousness: patient oriented x3 Limitations: wheelchair (Able to stand up and walk around carefully) HEENT Head: Yes normocephalic and Yes atraumatic Mouth: moist mucous membranes Neck Other: Patient has almost normal range of motion of her neck today Resp Other: Not short of breath with lying flat Effort & Inspection: normal respiratory effort and able to speak in complete sentences Auscultation: clear to auscultation bilaterally and diminished lung sounds bilateral in the lower lung grigsby Cardio Rate: regular rate Rhythm: regular rhythm Skin General skin exam: no rashes or lesions noted Neuro General: patient oriented x3 Extrem Other: Extensive RA deformities and multiple surgical procedures Right elbow contracture s/p arthroplasty Right wrist contracture s/p surgery, barely any flexion or extension Bilateral ulnar deviation at the MCPs. 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 Good cattle trader strength bilaterally Normal nailfold capillaroscopy Right ankle fusion no ankle swelling tenderness or warmth Left ankle without swelling tenderness or erythema bilateral fibular deviation of her toes No MTP tenderness Negative MTP squeeze test Results Reviewed Results Reviewed: DEXA 04/18? L-spine-1.6? Right femoral neck-1.9? Right total hip-2.0? Left femoral neck-1.7? Left total hip -2.2 DEXA 01/2023 L-spine T-score-0.7? Left femoral neck T-score -1.4 Left femur total T-score -2.2 FRAX 29.5 for major osteoporosis fracture? Hip fracture 4.5% Assessment & Plan Assessment & Plan (1) Rheumatoid arthritis involving multiple sites with positive rheumatoid factor: Comment: dx in 1970s Gold--> allergic reaction HCQ ineffective MTX caused diarrhea and GI upset even when switched to SQ Remicade, Enbrel, Humira, all worked for sometime then lost their efficacy Orencia Celebrex not effective Xeljanz effective for a few years then DC due to DILE (is unclear we whether it was because Xeljanz as 5 other medicines were stopped) RTX given end of 2020 & 09/2021. 08/2022 effective Code(s): M05.79 - Rheumatoid arthritis with rheumatoid factor of multiple sites without organ or systems involvement Plan: This is a 68 year female with longstanding severe erosive RA s/p multiple surgical procedures who presents for follow-up Patient has tried and failed multiple DMARDs. Please see above. She is currently on rituximab infusions and methotrexate 15 mg weekly, prednisone 10 mg daily and folic acid daily. She is doing well on this combination. Most recent rituximab was 03/2023. Continue with methotrexate 15 mg weekly, folic acid 1 mg daily Reduce prednisone to 7.5 mg daily for 1 month then remain on 5 mg daily Labs before next visit in 3 months. Will evaluate patient and accordingly will schedule rituximab infusion (2) Cervicalgia: Code(s): M54.2 - Cervicalgia Plan: Following with pain management and received 2 medial branch block trials, the plan is to do radiofrequency ablation (3) Osteopenia of multiple sites: Code(s): M85.89 - Other specified disorders of bone density and structure, multiple sites Plan: DEXA 01/2023 showed osteopenia with a high FRAX score. Continue with Fosamax 70 mg weekly Plan to repeat DEXA in the fall of 2024. (4) Obstructive sleep apnea: Code(s): G47.33 - Obstructive sleep apnea (adult) (pediatric) Plan: History of sleep apnea, diagnosed more than 5 years ago according to and was using CPAP machine. Recently patient has having frequent episodes of stopping breathing at night and gasping for air. Per patient and her , she will not be able to tolerate a CPAP machine. I suggested re-evaluation by sleep specialist. Perhaps a more comfortable CPAP mask can be arranged. Patient declined Plan I spent 46 minutes reviewing patient's chart, evaluating patient, ordering diagnostic workup, counseling patient and documenting in the chart Orders: Orders Complete Blood Count Auto Diff 3 Months M05.79 - Rheumatoid arthritis with rheumatoid factor of multiple sites without organ or systems involvement, Z79.631 - terminal computer operator (current) use of antimetabolite agent C Reactive Protein 3 Months M05.79 - Rheumatoid arthritis with rheumatoid factor of multiple sites without organ or systems involvement, Z79.631 - terminal computer operator (c urrent) use of antimetabolite agent Immunofixation Pnl, Serum 3 Months M05.79 - Rheumatoid arthritis with rheumatoid factor of multiple sites without organ or systems involvement, Z79.631 - terminal computer operator (current) use of antimetabolite agent Comprehensive Met. Panel 3 Months M05.79 - Rheumatoid arthritis with rheumatoid factor of multiple sites without organ or systems involvement, Z79.631 - halfway (current) use of antimetabolite agent Erythrocyte Sedimentation Rate 3 Months M05.79 - Rheumatoid arthritis with rheum atoid factor of multiple sites without organ or systems involvement, Z79.631 - terminal computer operator (current) use of antimetabolite agent Immunoglobulins,IgG IgA IgM 3 Months M05.79 - Rheumatoid arthritis with rheumatoid factor of multiple sites without organ or systems involvement, Z79.631 - terminal computer operator (current) use of antimetabolite agent Medications: New prednisone Take 3 tabs daily for 1 month then remain on 2 tabs daily 210 tabs 0RF Discontinued prednisone Discontinued Reason: Doctor's Order 10 mg PO DAILY 90 tabs 1RF Coding Level of Care Code Est Pt Level 4 (57018) Diagnoses Rheumatoid arthritis involving multiple sites with positive rheumatoid factor M05.79 Cervicalgia M54.2 Osteopenia of multiple sites M85.89 Obstructive sleep apnea G47.33
[2023-06-20 15:31] VITALS: BP 134/76; PULSE 81; TEMP 36.4; O2SAT 92
== END 2023-06-20 16:12 | disposition home or self-care (01) ==
PROVIDERS: PCP Registered Nurse; Visit Provider Student in an Organized Health Care Education/Training Program
DX: M05.79 Rheumatoid arthritis with rheumatoid factor of multiple sites without organ or systems involvement (principal); M54.2 Cervicalgia; M85.89 Other specified disorders of bone density and structure, multiple sites; G47.33 Obstructive sleep apnea (adult) (pediatric)
CPT/HCPCS: 99214

== ENCOUNTER 2023-06-24 13:44 | Outpatient (AMB) | payer MEDICARE, BC, SELFPAY ==
--- NOTE | 2023-06-24 13:48 | A.OFFVIS_ITS ---
Intake Vital Signs 3 06/24/23 13:52 Height 5 ft 6 in Weight 160 lb BMI 25.8 BP 145/70 H Blood Pressure Location Rt brachial Position Sitting Respiration 16 Pulse 77 Pulse Source Pulse Oximeter Pulse Oximetry (%) 98 Oxygen Delivery Method Room Air Intake Visit Reasons: s/p dian Dx C3-C4-C5 MBB Expense Clerk Required: No Accompanied by: Spouse Allergies codeine Allergy (Mild, Verified 06/24/23 13:53) Paleness Gold Salts Allergy (Mild, Verified 06/24/23 13:53) Rash Sulfa (Sulfonamide Antibiotics) Allergy (Mild, Verified 06/24/23 13:53) Swelling HPI HPI Comments 2 History of Present Illness0 Details Patient presents today to assess response to Repeat Diagnostic Cervical Medial Branch Block, Bilateral C3, C4, C5 medial branches 06/20/[address] Ortiz. Patient reports 80% pain relief for 8 hours following the procedure with improved functioning and better sleep. She is interested to proceed with cervical medial branch RFA as next steps for a longer pain relief. Patient also reports right sided pain under rib cage due to muscle strain by flexing and bending herself in wheelchair to move her shoes about 7-10 days ago. She concerned for rib fracture. She is on Eliquis. Denies any recent cough, cold, infection, shorteness of breaths, chest pain, fever or other significant changes in medical history since last office visit. Past Procedures: 06/20/23: Repeat Diagnostic Bilateral C3 -C4-C5 MBBs-80% pain relief for 8 hours 05/01/23: Diagnostic Bilateral C3-C4-C5 MBBs-90% pain relief for 2 days PRIOR: Patient presents today via telehealth encounter to follow up for chronic neck pain. Patient continues to endorse axial cervical spine neck pain and muscle spasms. Pain radiates to her left occipital area and intermittenly to left shoulder. She takes Flexeril 2-3 days per day without any side effects and Tylenol. Patient has been doing daily home exercise program to increase cervical ROM, strength and improve flexibility as well as has been attending acupuncture therapy for 5 months with temporary symptom relief. Her neck pain is worsened with any neck movements, worse when she looks up or moves her head side to sides as well with prolonged reading. Pain continues to negatively affects her daily functioning and activities, sleep and quality of life. Patient is interested to proceed with diagnostic cervical MBBs for potential Sprint PNS trial or RFA procedures. Denies any recent cough, cold, infection, fever or other significant changes in medical history since last office visit. PRIOR: Patient is a pleasant 67 years old female with history of longstanding severe erosive and deforming RA s/p multiple surgical procedures including right elbow replacement, bilateral hand tendon surgeries, right hand MCPs surgeries, right ankle fusion, presents today for initial evaluation of left sided neck pain associated with left upper shoulder pain. Her pain also radiates into her left occipital region and left shoulder with numbness, tinglings and throbbing sensations. Patient is accompanied by her and she has arrived in a wheelchair. Denies any recent injury, trauma, or falls. Patient has difficulty with neck rotation, especially on the left. Patient has multiple joint pain related to RA and has been using a wheelchair since 2019, especially due to bilateral knee pain. She is able to get out of WC without difficulty but with slow, antalgic gait. Pain affects her daily activities, functioning, sleep, mood and quality of life. She has tried to manage her pain with acupuncture, ice therapy, massage, home exercise program with neck stretching exercises, and muscle relaxants with mild pain relief. Patient reports she was told by her neurologist Dr. Schaefer in [facility] that her symptoms are consistent with occipital neuralgia. Denies any recent cough, cold, infection, fever, weight loss, vision changes, shortness of breaths, chest pain, headaches, any bladder or bowel incontinence or saddle anesthesia. Location Left side of neck radiates down left shoulder and occipital region Duration For 4 months, no inciting events Characteristics of symptom or complaint Aching, spasming, numb, throbbing, shocking Aggravating or associated factors Any neck movements, worse with extension and side rotations Relieving factors Flexeril, ice therapy, laying down, morphine, Tylenol, lidocaine patches Treatment Acupuncture, massage, home stretching exercises Patient's Neck Disability Index score: 34/50=68.0 percent Pertinent Positives per patient: It is painful to look after myself and I am slow and careful; I can read as much as I want to with moderate pain in my neck; I have a fair degree of difficulty in concentrating when I want to; The pain is fairly severe at the moment; Pain prevents me from lifting heavy weights, but I can manage light to medium weights if they are conveniently positioned; I have severe headaches, which come frequently; I can hardly do any work at all; I cannot drive my car at all; My sleep is greatly disturbed (3-5 hrs sleepless); I can't do any recreation activities at all; [facility] Medical History (Updated 06/24/23 @ 14:02 by DIVYA Mac) Lacunar infarction Diverticulitis Diverticulosis Endometriosis Schatzki's ring Drug-induced lupus erythematosus Encounter for testing for latent tuberculosis infection Afib Osteopenia of multiple sites Rheumatoid arthritis involving multiple sites with positive rheumatoid factor Vitamin D deficiency Primary osteoarthritis of both knees Surgical History H/O unilateral oophorectomy H/O cataract extraction History of bladder suspension procedure H/O elbow replacement H/O tubal ligation History of cholecystectomy History of ankle surgery H/O hand surgery Family History Mother Diabetes Sister Diabetes Pancreatic cancer Father Pancreatic cancer Seizures Social History Household Members: Spouse Alcohol intake: never Patient Tobacco Use Status: Never used Tobacco Current occupational status: disabled Review of Systems Const All systems reviewed & are unremarkable except as noted in HPI and below Card Denies chest pain at rest, Denies chest pain with activity, Denies lightheadedness, Denies dyspnea and Denies dyspnea on exertion Resp Reports as per HPI, Denies cough, Denies hemoptysis, Denies pain on inspiration, Denies pain with cough, Denies dyspnea and Denies dyspnea on exertion Physical Exam Vital Signs: Last Vital Signs Pulse 77 06/24/23 13:52 BP 145/70 H 06/24/23 13:52 Pulse Ox 98 06/24/23 13:52 Oxygen Delivery Method Room Air 06/24/23 13:52 BMI result Body Mass Index 25.8 General: Appears afebrile. Alert and oriented. Mood and affect appropriate. Follows and participates in conversation appropriately. Respiratory effort is unlabored. No cough. Patient is sitting comfortably in wheelchair. Able to get up and slowly walk around. Neck Neck: Yes normal visual inspection, Yes supple, No anterior neck swelling and Yes no JVD Chest Chest palpation & inspection: normal inspection of the chest, normal palpation of entire chest wall and tenderness rib Right mid-clavicular and anterior- axillary lines involving the 7th rib and involving the 8th rib Breast/axilla inspection: normal inspection of the axillae Back/Spine/Pelvis Cervical Spine: loss of normal cervical lordosis, cervical muscular tenderness, pain with cervical ROM (increased pain in all planes, worse with right rotation), cervical spasm and No Cervical spine tenderness Thoracic/Lumbar Spine: thoracic and lumbar spine normal to inspection, pain with thoraco-lumbar ROM, thoraco-lumbar ROM limited, No thoracic spinal tenderness and lumbar spinal tenderness Results Reviewed Results Reviewed: XR CERVICAL SPINE 03/14/23 CLINICAL INFORMATION: Cervical radiculopathy. FINDINGS: There is bony demineralization. There is a slight cervicothoracic levoscoliosis. At C3-C4, there is moderate disc space narrowing. At C5-C6 and C6-C7, there is mild posterior disc space narrowing, with spondylosis. The remaining disc spaces are well-maintained. No acute fracture or spondylolisthesis is seen. The posterior elements are intact. The dens is intact. No prevertebral soft tissue swelling is seen. IMPRESSION: 1. There is moderate degenerative disc disease at C3-C4, and moderately severe degenerative disc disease seen at C5-C6 and C6-C7. 2. There is a slight cervicothoracic levoscoliosis. Assessment & Plan Assessment & Plan (1) Rib pain on right side: Code(s): R07.81 - Pleurodynia (2) Cervical spondylosis: Code(s): M47.812 - Spondylosis without myelopathy or radiculopathy, cervical region (3) Osteopenia of multiple sites: Code(s): M85.89 - Other specified disorders of bone density and structure, multiple sites (4) Cervicalgia: Code(s): M54.2 - Cervicalgia Plan Patient had good results results with 2 bilateral diagnostic C3-C4-C5 MBBs on 05/01/23 and 06/20/23, providing her 80-90% pain relief each time with significant improvement in her functioning and sleep. She is interested to proceed with cervical medial branch RFA as next steps for a longer term pain relief. Schedule Bilateral C3-C4-C5 Medial Branch RFA with sedation and fluoroscopy for chronic neck pain. Patient has osteopenia and is not good candidate for therapeutic injections. She is not interested in Sprint PNS trial. Will obtain right rib with chest view xray to follow up right sided rib cage pain. All questions and concerns have been answered and patient agreed with the plan. Follow up after RFA procedure and sooner as needed. Anticoagulation: Patient on anticoagulation (Eliquis) and instructions given on when to pause with prescribing physician permission. Justification for interventional therapy: ? Patient with average pain > 6/10 ? Patient has exhausted conservative therapy, HEP, massage, acupuncture, opioid medication, muscle relaxant ? #1 Diagnostic Cervical MBBs injections-90% pain relief for 2 days ? #2 Diagnostic Cervical MBBs injections-80% pain relief for 8 hours The risks, consequences, alternatives, and benefits of various treatment options were discussed with the patient in great detail, including conservative management, injections and procedures. Orders: Orders 2 XR ribs RT min 3V w CXR1V Today R07.81 - Pleurodynia Medications: New 2 lidocaine HCl 4% (Pain Relief (lidocaine)) 1 appl topical BID PRN 120 grams 0RF pain R07.81 - Pleurodynia Coding Level of Care Code Est Pt Level 4 (15449) Diagnoses Rib pain on right side R07.81 Cervical spondylosis M47.812 Osteopenia of multiple sites M85.89 Cervicalgia M54.2
[2023-06-24 13:52] VITALS: BP 145/70; PULSE 77; RESP 16; O2SAT 98; BMI 25.8
== END 2023-06-24 14:07 | disposition home or self-care (01) ==
PROVIDERS: PCP Registered Nurse; Visit Provider Nurse Practitioner Family
DX: R07.81 Pleurodynia (principal); M47.812 Spondylosis without myelopathy or radiculopathy, cervical region; M85.89 Other specified disorders of bone density and structure, multiple sites; M54.2 Cervicalgia
CPT/HCPCS: 99214

== ENCOUNTER 2023-06-24 13:44 | Outpatient (REF) | payer MEDICARE, BC, SELFPAY ==
--- NOTE | ~2023-06-24 | XR_ITS ---
EXAMINATION: XR RIBS, RIGHT, WITH PA CHEST CLINICAL INFORMATION: Pleurodynia. COMPARISON: None available. TECHNIQUE: 3 views of the right ribs were obtained, together with a PA view of the chest. FINDINGS: There is mild plate-like atelectasis at the left base. No consolidation, pneumothorax, or pleural effusion. The cardiomediastinal silhouette and pulmonary vasculature are normal. There is a mildly displaced fracture of the distal right eighth rib. No focal pleural reaction is seen. An old, healed fracture is seen of the proximal right humeral shaft, with bony remodeling. An intramedullary nirmal is partially included in the [id number]. There are right upper quadrant surgical clips. XR/XR ribs RT min 3V w CXR1V IMPRESSION: 1. A mildly displaced fracture is seen of the distal right eighth rib. No pleural effusion or pneumothorax is noted. 2. There is mild plate-like atelectasis at the left base.
== END 2023-06-24 13:45 | disposition home or self-care (01) ==
LOC: HO.XRAY 13:44
PROVIDERS: PCP Nurse Practitioner Family; Visit Provider Nurse Practitioner Family
DX: R07.81 Pleurodynia (principal); M47.812 Spondylosis without myelopathy or radiculopathy, cervical region; M85.89 Other specified disorders of bone density and structure, multiple sites; Z79.01 Long term (current) use of anticoagulants
CPT/HCPCS: 71101; 99212

== ENCOUNTER 2023-08-28 12:43 | Day surgery (SDC) | payer MEDICARE, BC, SELFPAY ==
--- NOTE | ~2023-08-28 | FL_ITS ---
EXAMINATION: XR FLUOROSCOPY WITH IMAGES CLINICAL INFORMATION: Fluoroscopy for C3, C4, C5 medial branch RF a COMPARISON: None available. TECHNIQUE: Fluoroscopy Supervised By: Dr. Ricky Ortiz. Fluoroscopy Time: 0.9. Cumulative Dose: 8.45 mGy. DAP: 0.657 Gycm2. Images: 9. FINDINGS: Fluoroscopic guidance provided for procedure performed under the supervision of Dr. Ortiz. Multiple images demonstrate surgical hardware and needles overlying the cervical spine. Please refer to operative report for more detailed evaluation. FL/FL guidance in OR IMPRESSION: Fluoroscopic guidance provided for procedure performed under the supervision of Dr. Ricky Ortiz. Please refer to operative report for more detailed evaluation.
[2023-08-28 12:56] VITALS: BMI 27.4
[2023-08-28 13:26] VITALS: BP 175/105; PULSE 81; RESP 16; TEMP 36.4; O2SAT 97
[2023-08-28] MEDS: Lactated Ringers 1,000 ML 100 ML IVCONT (13:29)
[2023-08-28 13:52] LABS: INTERNATIONAL NORM RATIO 0.9 (0.9-1.1); Prothrombin Time 11.3 SEC (11.1-13.3)
--- NOTE | 2023-08-28 14:38 | MHC.SHP ---
Pre-Procedural Eval Section A - 24 Hr Update-Section A only Date of Service: 08/28/23 The patient is an INPATIENT: No Changes since office visit: Yes Patient answered all questions The patient has been examined within 24 hours of the surgical procedure. The History & Physical has been completed within 30 days and I have reviewed it.: No Section B - Complete if H&P > 30 days Chief Complaint: Spondylosis without myelopathy or radiculopathy, Relevant Family History (Specify if Yes): No Relevant Social History: None Present Medications: see Short Stay Collaborative assessment Medical History: No relevant PMH History of Previous Operations: No relevant previous surgery Allergies: Allergies Allergy/AdvReac Type Severity Reaction Status Date / Time codeine Allergy Mild Paleness Verified 06/24/23 13:53 Gold Salts Allergy Mild Rash Verified 06/24/23 13:53 Sulfa (Sulfonamide Allergy Mild Swelling Verified 06/24/23 13:53 Antibiotics) Review of Systems Sugical H&P ROS: Negative: Constitution, Cardiovascular and Respiratory Exam Surgical H&P Exam: Normal: HEENT, Normal: Heart and Normal: Lungs Plan Diagnosis/Plan: Unchanged I have reviewed the history and physical and performed a pertinent physical examination on my patient. No changes have occurred unless specified. Time Spent With Patient Time: Total time managing care of this patient today ____ minutes.
--- NOTE | 2023-08-28 15:20 | P.CONAN_ITS ---
Documented by User: Ashley Leon NP 08/27/23 10:17 HPI - Anesthesia Eval Consult details Narrative: 68yo F for Bilateral C3,C4,C5 Medial Branch Radiofrequency AB Eliquis for afib. OK'd to hold by [facility] cardiology. Last visit telehealth 2021. 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) Poor peripheral circulation (Acute) Cervicalgia (Acute) half-way methotrexate user (Acute) Osteopenia of multiple sites (Acute) Rheumatoid arthritis involving multiple sites with positive rheumatoid factor (Acute) Past Medical History Medical History (Updated 06/24/23 @ 14:02 by DIVYA Mac) Lacunar infarction Diverticulitis Diverticulosis Endometriosis Schatzki's ring Drug-induced lupus erythematosus Encounter for testing for latent tuberculosis infection Afib Osteopenia of multiple sites Rheumatoid arthritis involving multiple sites with positive rheumatoid factor Vitamin D deficiency Primary osteoarthritis of both knees Family History Family History Mother Diabetes Sister Diabetes Pancreatic cancer Father Pancreatic cancer Seizures Surgical History Surgical History H/O unilateral oophorectomy H/O cataract extraction History of bladder suspension procedure H/O elbow replacement H/O tubal ligation History of cholecystectomy History of ankle surgery H/O hand surgery Social History Social History Household Members: Spouse Alcohol intake: never Patient Tobacco Use Status: Never used Tobacco Use of substances other than those prescribed or required for medical reasons: No Are you DNR?: Yes Advance Directives: No Advance Directives Information Provided: Yes Current occupational status: disabled Meds Allergies Allergy/AdvReac Type Severity Reaction Status Date / Time codeine Allergy Mild Paleness Verified 06/24/23 13:53 Gold Salts Allergy Mild Rash Verified 06/24/23 13:53 Sulfa (Sulfonamide Allergy Mild Swelling Verified 06/24/23 13:53 Antibiotics) Home Medications ?Medication ?Instructions ?Recorded ?Confirmed ?Last Taken ?Type apixaban 5 mg tablet (Eliquis) 5 mg PO BID 07/20/22 06/20/23 Unknown History carvedilol 12.5 mg tablet 12.5 mg PO BID 07/20/22 06/20/23 Unknown History escitalopram oxalate 10 mg tablet 10 mg PO DAILY 07/20/22 06/20/23 Unknown History estradiol 0.01% (0.1 mg/gram) g vaginal NEEDED PRN Vaginal 07/20/22 06/20/23 Unknown History vaginal cream Dryness famotidine 40 mg tablet 40 mg PO BEDTIME 07/20/22 06/20/23 Unknown History fluticasone propionate 50 1 spray intranasal DAILY 07/20/22 06/20/23 Unknown History mcg/actuation nasal spray,suspension levothyroxine 88 mcg tablet 88 mcg PO DAILY 07/20/22 06/20/23 Unknown History lorazepam 0.5 mg tablet 0.5 mg PO Q4H PRN anxiety 07/20/22 06/20/23 Unknown History ondansetron 4 mg disintegrating 4 mg PO NEEDED nausea 07/20/22 06/20/23 Unknown History tablet pantoprazole 40 mg tablet,delayed 40 mg PO DAILY 07/20/22 06/20/23 Unknown History release potassium chloride 20 mEq 20 meq PO BID 07/20/22 06/20/23 Unknown History tablet,extended release(part/cryst) syringe with needle 3 mL 25 x 5/8 #1 ea 07/20/22 06/20/23 Unknown History (BD Luer-Joselin Syringe) sennosides 8.6 mg tablet 8.6 mg PO BEDTIME 07/25/22 06/20/23 Unknown History vibegron 75 mg tablet (Gemtesa) 75 mg PO DAILY 07/25/22 06/20/23 Unknown History biotin 1 mg tablet 1 mg PO DAILY 12/27/22 06/20/23 Unknown History cholecalciferol (vitamin D3) 10 10 mcg PO DAILY 12/27/22 06/20/23 Unknown History mcg (400 unit) capsule losartan 25 mg tablet 25 mg PO DAILY 06/20/23 06/20/23 Unknown History solifenacin 10 mg tablet 10 mg PO DAILY 06/24/23 Unknown History Exam Pertinent Lab Results Pertinent Lab Results: Laboratory Tests 06/20/23 14:19 WBC 10.9 H Hgb 16.5 H Hct 50.9 H Plt Count 246 Sodium 143 Potassium 4.0 Chloride 106 Carbon Dioxide 28 BUN 20 H Creatinine 0.76 Narrative Narrative: ECHO 2019 LV chamber size is nml. Mild conc LVH. EF 55-65% Mild AR RV nml in size and function Assessment and Plan Assessment Anesthesia Assessment: Chart Reviewed Documented by User: Milka Gorman, DO 08/28/23 15:23 [facility] Past Medical History Medical History (Updated 06/24/23 @ 14:02 by DIVYA Mac) Lacunar infarction Diverticulitis Diverticulosis Endometriosis Schatzki's ring Drug-induced lupus erythematosus Encounter for testing for latent tuberculosis infection Afib Osteopenia of multiple sites Rheumatoid arthritis involving multiple sites with positive rheumatoid factor Vitamin D deficiency Primary osteoarthritis of both knees Family History Family History Mother Diabetes Sister Diabetes Pancreatic cancer Father Pancreatic cancer Seizures Family history of problems with anesthesia: No Surgical History Surgical History H/O unilateral oophorectomy H/O cataract extraction History of bladder suspension procedure H/O elbow replacement H/O tubal ligation History of cholecystectomy History of ankle surgery H/O hand surgery History of Problems with Anesthesia: No Social History Social History Household Members: Spouse Alcohol intake: never Patient Tobacco Use Status: Never used Tobacco Use of substances other than those prescribed or required for medical reasons: No Are you DNR?: Yes Advance Directives: No Advance Directives Information Provided: Yes Current occupational status: disabled Meds Allergies Allergy/AdvReac Type Severity Reaction Status Date / Time codeine Allergy Mild Paleness Verified 06/24/23 13:53 Gold Salts Allergy Mild Rash Verified 06/24/23 13:53 Sulfa (Sulfonamide Allergy Mild Swelling Verified 06/24/23 13:53 Antibiotics) Home Medications ?Medication ?Instructions ?Recorded ?Confirmed ?Last Taken ?Type apixaban 5 mg tablet (Eliquis) 5 mg PO BID 07/20/22 06/20/23 Unknown History carvedilol 12.5 mg tablet 12.5 mg PO BID 07/20/22 06/20/23 Unknown History escitalopram oxalate 10 mg tablet 10 mg PO DAILY 07/20/22 06/20/23 Unknown History estradiol 0.01% (0.1 mg/gram) g vaginal NEEDED PRN Vaginal 07/20/22 06/20/23 Unknown History vaginal cream Dryness famotidine 40 mg tablet 40 mg PO BEDTIME 07/20/22 06/20/23 Unknown History fluticasone propionate 50 1 spray intranasal DAILY 07/20/22 06/20/23 Unknown History mcg/actuation nasal spray,suspension levothyroxine 88 mcg tablet 88 mcg PO DAILY 07/20/22 06/20/23 Unknown History lorazepam 0.5 mg tablet 0.5 mg PO Q4H PRN anxiety 07/20/22 06/20/23 Unknown History ondansetron 4 mg disintegrating 4 mg PO NEEDED nausea 07/20/22 06/20/23 Unknown History tablet pantoprazole 40 mg tablet,delayed 40 mg PO DAILY 07/20/22 06/20/23 Unknown History release potassium chloride 20 mEq 20 meq PO BID 07/20/22 06/20/23 Unknown History tablet,extended release(part/cryst) syringe with needle 3 mL 25 x 5/8 #1 ea 07/20/22 06/20/23 Unknown History (BD Luer-Joselin Syringe) sennosides 8.6 mg tablet 8.6 mg PO BEDTIME 07/25/22 06/20/23 Unknown History vibegron 75 mg tablet (Gemtesa) 75 mg PO DAILY 07/25/22 06/20/23 Unknown History biotin 1 mg tablet 1 mg PO DAILY 12/27/22 06/20/23 Unknown History cholecalciferol (vitamin D3) 10 10 mcg PO DAILY 12/27/22 06/20/23 Unknown History mcg (400 unit) capsule losartan 25 mg tablet 25 mg PO DAILY 06/20/23 06/20/23 Unknown History solifenacin 10 mg tablet 10 mg PO DAILY 06/24/23 Unknown History Exam Exam Date and Time: August 28, 2023 1520 Height,Weight and Vital Signs: Height 5 ft 6 in Weight 77.111 kg Vital Signs Temperature 97.5 F 08/28/23 13:26 Pulse Rate 81 08/28/23 13:26 Respiratory Rate 16 08/28/23 13:26 Blood Pressure 175/105 H 08/28/23 13:26 Pulse Oximetry 97 08/28/23 13:26 Oxygen Delivery Method Room Air 08/28/23 13:26 Temperature 97.5 F 08/28/23 13:26 Pulse Rate 81 08/28/23 13:26 Respiratory Rate 16 08/28/23 13:26 Blood Pressure 175/105 H 08/28/23 13:26 Pulse Oximetry 97 08/28/23 13:26 Oxygen Delivery Method Room Air 08/28/23 13:26 Airway Mallampati Class: III TM Dist: <=3cm Neck ROM: Poor Loose/Missing/Broken Teeth: No (patient denies any loose or broken teeth) Heart: S1S2 Lungs: CTAB Assessment and Plan Assessment Anesthesia Assessment: Anesthesia Plan Discussed and Chart Reviewed Final Anesthetic Review Family History of Problems with Anesthesia: No History of Problems with Anesthesia: No NPO: Yes ASA Class: III Final Preanesthetic Review: No Changes in Pt Med Stat, Meds/Allgs Chart Reviewed, Consent Obtained/Reviewed and Anes Risks/Benef Reviewed Patient Risk: Intermediate Procedure Risk: Low Anesthetic Plan Anesthetic Plan: MAC: and Agree w/ Assess. and Plan Disposition: Standard PACU
[2023-08-28 16:25] VITALS: BP 179/69; PULSE 84; RESP 16; TEMP 36.3; O2SAT 100
--- NOTE | 2023-08-28 16:27 | P.BOP_ITS ---
Brief Operative Note Date of Service: 08/28/23 Pre-op diagnosis: Cervical spondylosis Post-op diagnosis: same Procedure: Bilateral C3, C4, C5 medial branch radiofrequency ablation Implants: None Surgeon: Ricky Ortiz MD Anesthesia: MAC Was an Electric Motor Control Assembler used for this Procedure?: No Estimated blood loss (mL): 2 Pathology: none sent Condition: stable Disposition: PACU
[2023-08-28 16:40] VITALS: BP 163/82; PULSE 81; RESP 16; O2SAT 95
--- NOTE | 2023-08-28 16:44 | P.OP_ITS ---
Operative Note Operative Note Date of Service: 08/28/23 Narrative: Radiofrequency lesioning cervical medial branch nerves, Bilateral C3, C4 and C5 After obtaining written consent, pre-procedure blood pressure and heart rate were stable and recorded in the nursing record. The patient was placed in the prone position and sedated by the optometric aide. The?cervical?area was prepped with chloraprep and draped in sterile fashion. The skin over the target for each medial branch nerve was anesthetized with 1% lidocaine. An 18 gauge radiofrequency cannula was advanced to each target site under fluoroscopic guidance. No paresthesias were elicited with needle placement and aspiration was negative for heme and CSF. Impedences were verified under 600 ohms. Motor testing (2 Hz) confirmed needle placement at each site within the appropriate voltage thresholds. Each site was injected with 0.5 ml 2% preservative-free lidocaine. Radiofrequency lesioning was performed for 90 seconds at 80 deg Celcius. The needle was removed, skin cleansed and a sterile bandage was applied. The patient tolerated the procedure well and no complications were encountered. Following the procedure the patient's vital signs were stable. Neuro exam was within normal limits in the PACU. Patient denied any changes in sensation to her upper extremities. The patient was discharged home in good condition with post-procedural instructions. Time Out: Immediately prior to the procedure, the following was verbally confirmed that there is a signed consent form and that the correct patient, planned procedure, site and side are consistent with documentation and that necessary equipment and/or blood products are available prior to the start of the case. Complications: none EBL: <5 cc
[2023-08-28 16:55] VITALS: BP 152/77; PULSE 81; RESP 16; TEMP 36.4; O2SAT 95
== END 2023-08-28 17:05 | disposition home or self-care (01) ==
PROVIDERS: PCP Nurse Practitioner Family; Visit Provider Internal Medicine
PROC: (CPT 64633; principal; 2023-08-28 14:20)
DX: M47.812 Spondylosis without myelopathy or radiculopathy, cervical region (principal); M54.2 Cervicalgia; M05.9 Rheumatoid arthritis with rheumatoid factor, unspecified; L93.2 Other local lupus erythematosus; T50.905A Adverse effect of unspecified drugs, medicaments and biological substances, initial encounter; Y92.9 Unspecified place or not applicable; M17.0 Bilateral primary osteoarthritis of knee; I48.91 Unspecified atrial fibrillation; R07.81 Pleurodynia; E55.9 Vitamin D deficiency, unspecified; Z79.01 Long term (current) use of anticoagulants; Z79.899 Other long term (current) drug therapy; Z88.2 Allergy status to sulfonamides; Z88.5 Allergy status to narcotic agent; Z98.890 Other specified postprocedural states
CPT/HCPCS: 64633; 64634; 36415; 85610; J2250; J2704; J2795; J3010; J3301; Q9967

== ENCOUNTER → 2023-08-28 12:43 | Outpatient (BNV) | payer MEDICARE, BC, SELFPAY | PROVIDERS: PCP Nurse Practitioner Family; Visit Provider Internal Medicine | DX: M47.812 Spondylosis without myelopathy or radiculopathy, cervical region (principal) | CPT/HCPCS: 64633; 64634 ==

== ENCOUNTER 2023-09-18 13:47 | Outpatient (REF) | payer MEDICARE, BC, SELFPAY ==
[2023-09-18 14:11] LABS: MANUAL DIFF FLAG NO
[2023-09-18 14:32] LABS: Basophils Percent Auto 0.5 % (0-2); Eosinophils Absolute Auto 0.2 X10*3/uL (0.0-0.4); Eosinophils Percent Auto 3.1 % (0-4); Hematocrit 49.1 % (37.0-47.0); Hemoglobin 16.3 g/dl (12.0-16.0); Imm Gran Abs Auto 0.03 X10*3/uL (0.00-0.03); Imm Gran Pct Auto 0.4 % (0.0-0.4); Lymphocytes Percent Auto 13.4 % (20-40); Mean Corpuscular HGB Conc 33.2 g/dl (31.0-35.0); Mean Corpuscular Hemoglobin 31.2 pg (27.0-33.0); Mean Corpuscular Volume 94.1 fL (80.0-98.0); Mean Platelet Volume 8.9 fL (9.4-12.3); Monocytes Absolute Auto 0.4 X10*3/uL (0.1-1.2); Monocytes Percent Auto 5.4 % (2-11); Neutrophils Absolute Auto 5.7 x10*3/uL (2.0-8.3); Neutrophils Percent Auto 77.2 % (45-73); Platelet Count 260 X10*3/uL (160-400); Red Blood Count 5.22 X10*6/uL (4.20-5.50); Red Cell Distribution Width 13.3 % (11.0-16.0); White Blood Count 7.3 X10*3/uL (4.8-10.8)
[2023-09-18 15:11] LABS: Erythrocyte Sedimentation Rate 2 MM/HR (0-20)
[2023-09-18 17:47] LABS: Alanine Aminotransferase 37 U/L (0-31); Alkaline Phosphatase 50 U/L (39-117); Anion Gap 14 (12-20); Aspartate Amino Transferase 34 U/L (5-31); Bilirubin Total 0.8 mg/dL (0.0-1.0); Blood Urea Nitrogen 14 mg/dL (9-16); C Reactive Protein 0.13 mg/dL (< or = 0.50); Calcium 9.6 mg/dL (8.4-10.2); Carbon Dioxide 24 mmol/L (22-29); Chloride 107 mmol/L (96-108); Estimated Glomerular Filt Rate > 60; Glucose Random 109 mg/dL (60-115); Potassium 4.2 mmol/L (3.3-5.1); Sodium 141 mmol/L (135-145); Total Protein 6.5 g/dL (6.5-8.0)
[2023-09-19 14:58] LABS: IgA 81 mg/dL (70-320); IgG 591 mg/dL (600-1540); IgM 35 mg/dL (50-300)
== END 2023-09-18 13:48 | disposition home or self-care (01) ==
LOC: HO.LAB 13:47
PROVIDERS: PCP Nurse Practitioner Family; Visit Provider Student in an Organized Health Care Education/Training Program
DX: M05.79 Rheumatoid arthritis with rheumatoid factor of multiple sites without organ or systems involvement (principal); M54.2 Cervicalgia; M85.89 Other specified disorders of bone density and structure, multiple sites; Z79.631 Long term (current) use of antimetabolite agent
CPT/HCPCS: 36415; 80053; 82784; 85025; 85652; 86140; 86334; 99212

== ENCOUNTER 2023-09-18 14:18 | Outpatient (AMB) | payer MEDICARE, BC, SELFPAY ==
--- NOTE | 2023-09-18 14:29 | A.OFFVIS_ITS ---
Vital Signs 09/18/23 14:30 Height 5 ft 6 in Weight 167 lb 5.294 oz BMI 27.0 BP 122/72 Blood Pressure Location Rt brachial Position Sitting Pulse 82 Pulse Oximetry (%) 94 Intake Visit Reasons: RA Intake Note: Patient last seen 06/20/23 presents today for follow up and test results. Accompanied by: Significant Other Allergies codeine Allergy (Mild, Verified 09/18/23 14:30) Paleness Gold Salts Allergy (Mild, Verified 09/18/23 14:30) Rash Sulfa (Sulfonamide Antibiotics) Allergy (Mild, Verified 09/18/23 14:30) Swelling Medication List - Last Reconciled 09/18/23 by Willi Wells MD alendronate 70 mg PO QWEEK apixaban (Eliquis) 5 mg PO BID biotin 1 mg PO DAILY carvedilol 12.5 mg PO BID cholecalciferol (vitamin D3) 10 mcg PO DAILY cyclobenzaprine 5 mg PO TID PRN escitalopram oxalate 10 mg PO DAILY estradiol 0.01%(0.1mg/gram) grams vaginal NEEDED PRN famotidine 40 mg PO BEDTIME fluticasone propionate 50 mcg/actuation 1 spray intranasal DAILY folic acid 1 mg PO DAILY levothyroxine 88 mcg PO DAILY lidocaine HCl 4% (Pain Relief (lidocaine)) 1 appl topical BID PRN lorazepam 0.5 mg PO Q4H PRN losartan 25 mg PO DAILY methotrexate sodium 15 mg (6 x 2.5 mg) PO QWEEK ondansetron 4 mg PO NEEDED pantoprazole 40 mg PO DAILY potassium chloride ER 20 mEq PO BID prednisone Take 3 tabs daily for 1 month then remain on 2 tabs daily rituximab-abbs 1,000 mg (100 mL) IV [id number] sennosides 8.6 mg PO BEDTIME solifenacin 10 mg PO DAILY syringe with needle (BD Luer-Joselin Syringe) As directed vibegron (Gemtesa) 75 mg PO DAILY HPI Comments Details: 68-year-old female with longstanding deforming RA returns for follow-up with her . She remains on methotrexate 15 mg weekly, folic acid daily, prednisone 5 mg daily and alendronate weekly. She states that she had bilateral radiofrequency ablation procedures by Pain Management, they did not seem to be very helpful. She continues to have pain in the back of her head. Her RA is doing fairly well overall. She complains of generalized weakness. She was recently started on furosemide by her ball rolling machine operator for bilateral leg swelling. Over the last few months she developed 3 episodes of UTI, she had some delirium. They were promptly diagnosed and treated. She had a rib f racture recently when she bent offer. There was no significant trauma Initial history: This is a 67-year-old female with complex past medical history including standing deforming RA who presents as a new patient. Her previous sas programmer left the practice. Her most recent sas programmer was Dr. Davis. She stated that she was diagnosed with rheumatoid arthritis back in the 70s. She had an allergic reaction to gold. She was on Remicade, Humira, Enbrel, Orencia. All of which worked for a while then lost their efficacy. She was on Xeljanz for a few years then she developed drug-induced lupus erythematosus per patient. She had diffuse blistering skin rash and hair loss. At that time 6 medicines were discontinued including Xeljanz. Most recently she received rituximab towards the end of 2020 and another rituximab course in 09/2021. Per notes patient seen to have some improvement with rituximab Patient has a history of recurrent diverticulitis. Patient has severe deforming RA s/p multiple surgeries including right elbow replacement, bilateral hand tendon surgeries, right hand MCPs surgeries, right ankle fusion. She had been on prednisone as a monotherapy for years. She is currently on 10 mg daily. She gets recurrent iritis that she treats with topical steroid eyedrops. She states that she gets those recurrent iritis every few months. Patient has been using wheelchair since 2019 due to bilateral knee pain. States that her knees give out . She can walk 1/8of a mile per on a good day. She states that the majority of her joint pain over the last few years has been her knees. She received multiple intra-articular steroid injections last year with some relief. [facility] Medical History Lacunar infarction Diverticulitis Diverticulosis Endometriosis Schatzki's ring Drug-induced lupus erythematosus Encounter for testing for latent tuberculosis infection Afib Osteopenia of multiple sites Rheumatoid arthritis involving multiple sites with positive rheumatoid factor Vitamin D deficiency Primary osteoarthritis of both knees Surgical History H/O unilateral oophorectomy H/O cataract extraction History of bladder suspension procedure H/O elbow replacement H/O tubal ligation History of cholecystectomy History of ankle surgery H/O hand surgery Family History Mother Diabetes Sister Diabetes Pancreatic cancer Father Pancreatic cancer Seizures Social History Household Members: Spouse Alcohol intake: never Patient Tobacco Use Status: Never used Tobacco Current occupational status: disabled Female Reproductive History Menstrual Total pregnancies: 3 Number of Living Children: 3 Review of Systems Const Reports weakness ENT Reports neck pain Musc Reports neck pain and Reports stiffness Neuro Reports weakness Physical Exam Vital Signs: Last Vital Signs Pulse 82 09/18/23 14:30 BP 122/72 09/18/23 14:30 Pulse Ox 94 09/18/23 14:30 BMI result Body Mass Index 27.0 Const General: cooperative, healthy appearing and comfortable Nutritional Appearance: overweight Orientation/consciousness: patient oriented x3 Limitations: wheelchair (Able to stand up and walk around carefully) HEENT Head: Yes normocephalic and Yes atraumatic Mouth: moist mucous membranes Resp Other: Not short of breath with lying flat Effort & Inspection: normal respiratory effort and able to speak in complete sentences Auscultation: clear to auscultation bilaterally and diminished lung sounds bilateral in the lower lung grigsby Cardio Rate: regular rate Rhythm: regular rhythm Skin General skin exam: no rashes or lesions noted Neuro General: patient oriented x3 Extrem Other: Extensive RA deformities and multiple surgical procedures Right elbow contracture s/p arthroplasty Right wrist contracture s/p surgery, barely any flexion or extension Bilateral ulnar deviation at the MCPs. Good tie mill operator strength bilaterally No active synovitis today. Good tie mill operator strength bilaterally Normal nailfold capillaroscopy Right ankle fusion no ankle swelling tenderness or warmth Left ankle without swelling tenderness or erythema bilateral fibular deviation of her toes No MTP tenderness Negative MTP squeeze test Results Reviewed Results Reviewed: DEXA 04/18? L-spine-1.6? Right femoral neck-1.9? Right total hip-2.0? Left femoral neck-1.7? Left total hip -2.2 DEXA 01/2023 L-spine T-score-0.7? Left femoral neck T-score -1.4 Left femur total T-score -2.2 FRAX 29.5 for major osteoporosis fracture? Hip fracture 4.5% Assessment & Plan Assessment & Plan (1) Rheumatoid arthritis involving multiple sites with positive rheumatoid factor: Comment: dx in 1970s Gold--> allergic reaction HCQ ineffective MTX caused diarrhea and GI upset even when switched to SQ Remicade, Enbrel, Humira, all worked for sometime then lost their efficacy Orencia Celebrex not effective Xeljanz effective for a few years then DC due to DILE (is unclear we whether it was because Xeljanz as 5 other medicines were stopped) RTX given end of 2020 & 09/2021. 08/2022,03/2023 effective Code(s): M05.79 - Rheumatoid arthritis with rheumatoid factor of multiple sites without o rgan or systems involvement Category: Medical Plan: This is a 68 year female with longstanding severe erosive RA s/p multiple surgical procedures who presents for follow-up Patient has tried and failed multiple DMARDs. Please see above. She is currently on rituximab infusions and methotrexate 15 mg weekly, prednisone 5 mg daily and folic acid daily. She is doing well on this combination. Most recent rituximab was 03/2023. Continue with methotrexate 15 mg weekly, folic acid 1 mg daily Plan to repeat rituximab infusion next month. However I am waiting for her immunoglobulins to result before scheduling, we might just do 1 g this time After patient completes rituximab infusion advised patient to lower her prednisone to 2.5 mg daily for 1 month then stop it Labs before next visit in 3 months (2) Cervicalgia: Code(s): M54.2 - Cervicalgia Category: Medical Plan: Patient was evaluated by pain management and had multiple procedures. She does not believe she had any significant improvement. (3) Osteopenia of multiple sites: Code(s): M85.89 - Other specified disorders of bone density and structure, multiple sites Category: Medical Plan: DEXA 01/2023 showed osteopenia with a high FRAX score. Continue with Fosamax 70 mg weekly Plan to repeat DEXA in the fall of 2024. Plan I spent 46 minutes reviewing patient's chart, evaluating patient, ordering diagnostic workup, counseling patient and documenting in the chart Coding Level of Care Code Est Pt Level 4 (59276) Complex EM visit Add On G2211 Diagnoses Rheumatoid arthritis involving multiple sites with positive rheumatoid factor M05.79 Cervicalgia M54.2 Osteopenia of multiple sites M85.89
[2023-09-18 14:30] VITALS: BP 122/72; PULSE 82; O2SAT 94; BMI 27.0
== END 2023-09-18 15:14 | disposition home or self-care (01) ==
LOC: HO.RHE 14:21
PROVIDERS: PCP Nurse Practitioner Family; Visit Provider Student in an Organized Health Care Education/Training Program
DX: M05.79 Rheumatoid arthritis with rheumatoid factor of multiple sites without organ or systems involvement (principal); M54.2 Cervicalgia; M85.89 Other specified disorders of bone density and structure, multiple sites
CPT/HCPCS: 99214; G2211

== ENCOUNTER 2023-10-03 13:27 | Outpatient (AMB) | payer MEDICARE, BC, SELFPAY ==
--- NOTE | 2023-10-03 13:28 | A.OFFVIS_ITS ---
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 Ortiz. Patient reports 50% pain relief since procedure with improved functioning and better sleep but continues to experience pain in the back of her head on the left. This is worse at evening and bedtime. She has multifactorial neck and occipital pain with combination of muscle spasms and occipital neuralgia. She has been taking lorazepam for sleep and anxiety. Patient reports she has tried to schedule visit with Mental Therapist for anxiety and depression closer to her home but was unsuccessful. She also takes Tylenol and muscle relaxant with partial relief. Denies any recent cough, cold, infection, shorteness of breaths, chest pain, fever or other significant changes in medical history since last office visit. Past Procedures: 08/28/23: Bilateral C3-C4-C5 MB RFA-50% pain relief 06/20/23: Repeat Diagnostic Bilateral C3-C4-C5 MBBs-80% pain relief for 8 hours 05/01/23: Diagnostic Bilateral C3-C4-C5 MBBs-90% pain relief for 2 days PRIOR: Patient presents today via telehealth encounter to follow up for chronic neck pain. Patient continues to endorse axial cervical spine neck pain and muscle spasms. Pain radiates to her left occipital area and intermittently to left shoulder. She takes Flexeril 2-3 days per day without any side effects and Tylenol. Patient has been doing daily home exercise program to increase cervical ROM, strength and improve flexibility as well as has been attending acupuncture therapy for 5 months with temporary symptom relief. Her neck pain is worsened with any neck movements, worse when she looks up or moves her head side to sides as well with prolonged reading. Pain continues to negatively affects her daily functioning and activities, sleep and quality of life. Patient is interested to proceed with diagnostic cervical MBBs for potential Sprint PNS trial or RFA procedures. Denies any recent cough, cold, infection, fever or other significant changes in medical history since last office visit. PRIOR: Patient is a pleasant 67 years old female with history of longstanding severe erosive and deforming RA s/p multiple surgical procedures including right elbow replacement, bilateral hand tendon surgeries, right hand MCPs surgeries, right ankle fusion, presents today for initial evaluation of left sided neck pain associated with left upper shoulder pain. Her pain also radiates into her left occipital region and left shoulder with numbness, tinglings and throbbing sensations. Patient is accompanied by her and she has arrived in a wheelchair. Denies any recent injury, trauma, or falls. Patient has difficulty with neck rotation, especially on the left. Patient has multiple joint pain related to RA and has been using a wheelchair since 2019, especially due to bilateral knee pain. She is able to get out of WC without difficulty but with slow, antalgic gait. Pain affects her daily activities, functioning, sleep, mood and quality of life. She has tried to manage her pain with acupuncture, ice therapy, massage, home exercise program with neck stretching exercises, and muscle relaxants with mild pain relief. Patient reports she was told by her neurologist Dr. Schaefer in [facility] that her symptoms are consistent with occipital neuralgia. Denies any recent cough, cold, infection, fever, weight loss, vision changes, shortness of breaths, chest pain, headaches, any bladder or bowel incontinence or saddle anesthesia. Location Left side of neck radiates down left shoulder and occipital region Duration For 4 months, no inciting events Characteristics of symptom or complaint Aching, spasming, numb, throbbing, shocking Aggravating or associated factors Any neck movements, worse with extension and side rotations Relieving factors Flexeril, ice therapy, laying down, morphine, Tylenol, lidocaine patches Treatment Acupuncture, massage, home stretching exercises Patient's Neck Disability Index score: 34/50=68.0 percent Pertinent Positives per patient: It is painful to look after myself and I am slow and careful; I can read as much as I want to with moderate pain in my neck; I have a fair degree of difficulty in concentrating when I want to; The pain is fairly severe at the moment; Pain prevents me from lifting heavy weights, but I can manage light to medium weights if they are conveniently positioned; I have severe headaches, which come frequently; I can hardly do any work at all; I cannot drive my car at all; My sleep is greatly disturbed (3-5 hrs sleepless); I can't do any recreation activities at all; FOR[facility]LY [facility] Medical History Anxiety and depression Lacunar infarction Diverticulitis Diverticulosis Endometriosis Schatzki's ring Drug-induced lupus erythematosus Encounter for testing for latent tuberculosis infection Afib Osteopenia of multiple sites Rheumatoid arthritis involving multiple sites with positive rheumatoid factor Vitamin D deficiency Primary osteoarthritis of both knees Surgical History H/O unilateral oophorectomy H/O cataract extraction History of bladder suspension procedure H/O elbow replacement H/O tubal ligation History of cholecystectomy History of ankle surgery H/O hand surgery Family History Mother Diabetes Sister Diabetes Pancreatic cancer Father Pancreatic cancer Seizures Social History Household Members: Spouse Alcohol intake: never Patient Tobacco Use Status: Never used Tobacco Current occupational status: disabled Review of Systems Const All systems reviewed & are unremarkable except as noted in HPI and below Physical Exam General: Appears afebrile. Alert and oriented. Mood and affect appropriate. Follows and participates in conversation appropriately. Respiratory effort is unlabored. No cough. Patient is sitting comfortably in wheelchair. Able to get up and slowly walk around. HEENT Head: Yes normal to inspection, Yes No palpable skull fracture present, Yes normocephalic, Yes atraumatic, Yes occipital foramen tenderness (mild, on the left), No scalp tenderness and No Temporal artery tenderness present Neck Neck: Yes normal visual inspection, Yes no lymphadenopathy, Yes no meningeal signs, Yes supple, No anterior neck swelling and Yes no JVD Chest Chest palpation & inspection: normal inspection of the chest, normal palpation of entire chest wall and tenderness rib Right mid-clavicular and anterior- axillary lines involving the 7th rib and involving the 8th rib Breast/axilla inspection: normal inspection of the axillae Back/Spine/Pelvis Cervical Spine: loss of normal cervical lordosis, cervical muscular tenderness, pain with cervical ROM, cervical spasm (radiates to left head and periscapular regions bilaterally) and No Cervical spine tenderness Thoracic/Lumbar Spine: thoracic and lumbar spine normal to inspection, pain with thoraco-lumbar ROM, thoraco-lumbar ROM limited, Thoracic/lumbar scoliosis, No thoracic spinal tenderness and lumbar spinal tenderness Neuro General: no meningeal signs Results Reviewed Results Reviewed: XR CERVICAL SPINE 03/14/23 CLINICAL INFORMATION: Cervical radiculopathy. FINDINGS: There is bony demineralization. There is a slight cervicothoracic levoscoliosis. At C3-C4, there is moderate disc space narrowing. At C5-C6 and C6-C7, there is mild posterior disc space narrowing, with spondylosis. The remaining disc spaces are well-maintained. No acute fracture or spondylolisthesis is seen. The posterior elements are intact. The dens is intact. No prevertebral soft tissue swelling is seen. IMPRESSION: 1. There is moderate degenerative disc disease at C3-C4, and moderately severe degenerative disc disease seen at C5-C6 and C6-C7. 2. There is a slight cervicothoracic levoscoliosis. Assessment & Plan Assessment & Plan (1) Occipital neuralgia: Code(s): M54.81 - Occipital neuralgia Category: Medical (2) Anxiety and depression: Code(s): F41.9 - Anxiety disorder, unspecified; F32.A - Depression, unspecified Category: Medical Plan: Psychology Referral placed to [place], [place] with Dr. Asif. (3) Chronic pain syndrome: Code(s): G89.4 - Chronic pain syndrome Category: Medical (4) Cervical spondylosis: Code(s): M47.812 - Spondylosis without myelopathy or radiculopathy, cervical region Category: Medical (5) Cervicalgia: Code(s): M54.2 - Cervicalgia Category: Medical Plan Patient is one month status post bilateral C3-C4-C5 MB RFA procedure with 50% pain and function improvement. She continues to experience left sided headache due to multifactorial neck and occipital pain with combination of muscle spasms and occipital neuralgia. We will proceed with Left Greater and Lesser Occipital Nerve Block with local anesthetic and US guidance. Trial of gabapentin for occipital neuralgia and cervicalgia. Patient reports history of gabapentin in the past with good tolerance. Side effects and precautions were discussed with patient and family. Discussed with the patient the risks associated with benzodiazepine (lorazepam) and gabapentin use. She is aware and verbalized an agreement to take the medications at least two hours apart. All questions and concerns have been answered and patient agreed with the plan. Follow up after RFA procedure and sooner as needed. Anticoagulation: Patient on anticoagulation (Eliquis) and instructions given on when to pause with prescribing physician permission. Justification for interventional therapy: ? Patient with average pain > 6/10 ? Patient has exhausted conservative therapy, HEP, massage, acupuncture, opioid medication, muscle relaxant The risks, consequences, alternatives, and benefits of various treatment options were discussed with the patient in great detail, including conservative management, injections and procedures. Orders: Referrals 2 Psychology Referral F32.A - Depression, unspecified, F41.9 - Anxiety disorder, unspecified, G89.4 - Chronic pain syndrome Medications: New 2 gabapentin 300 mg PO BID 30 days 60 caps 0RF pain M54.81 - Occipital neuralgia Coding Level of Care Code Est Pt Level 4 (74039) Diagnoses Occipital neuralgia M54.81 Anxiety and depression F41.9; F32.A Chronic pain syndrome G89.4 Cervical spondylosis M47.812 Cervicalgia M54.2
[2023-10-03 13:33] VITALS: BP 148/80; PULSE 79; O2SAT 98; BMI 27.0
== END 2023-10-03 14:04 | disposition home or self-care (01) ==
PROVIDERS: PCP Nurse Practitioner Family; Visit Provider Nurse Practitioner Family
DX: G89.4 Chronic pain syndrome (principal); M54.81 Occipital neuralgia; M47.812 Spondylosis without myelopathy or radiculopathy, cervical region; M54.2 Cervicalgia; F41.9 Anxiety disorder, unspecified; F32.A Depression, unspecified
CPT/HCPCS: 99214

== ENCOUNTER → 2023-10-03 13:27 | Outpatient (BNVA) | payer MEDICARE, BC, SELFPAY | PROVIDERS: PCP Nurse Practitioner Family; Visit Provider Nurse Practitioner Family | DX: M54.81 Occipital neuralgia (principal); M47.812 Spondylosis without myelopathy or radiculopathy, cervical region; M54.2 Cervicalgia; F41.9 Anxiety disorder, unspecified; F32.A Depression, unspecified; G89.4 Chronic pain syndrome | CPT/HCPCS: 99212 ==

== ENCOUNTER 2023-10-11 11:23 | Outpatient (AMB) | payer MEDICARE, BC, SELFPAY ==
--- NOTE | 2023-10-11 11:30 | A.OFFVIS_ITS ---
Vital Signs 3 10/11/23 11:32 Height 5 ft 6 in Weight 167 lb BMI 27.0 BP 144/73 H Blood Pressure Location Lt brachial Position Sitting Respiration 14 Pulse 83 Pulse Source Pulse Oximeter Pulse Oximetry (%) 94 Oxygen Delivery Method Room Air Intake Visit Reasons: LEFT OCCIPITAL NERVE BLOCK Allergies codeine Allergy (Mild, Verified 10/11/23 11:35) Paleness Gold Salts Allergy (Mild, Verified 10/11/23 11:35) Rash Sulfa (Sulfonamide Antibiotics) Allergy (Mild, Verified 10/11/23 11:35) Swelling Medication List - Last Reconciled 10/11/23 by Shayy Antunez LPN alendronate 70 mg PO QWEEK apixaban (Eliquis) 5 mg PO BID biotin 1 mg PO DAILY carvedilol 12.5 mg PO BID cholecalciferol (vitamin D3) 10 mcg PO DAILY cyclobenzaprine 5 mg PO TID PRN escitalopram oxalate 10 mg PO DAILY estradiol 0.01%(0.1mg/gram) grams vaginal NEEDED PRN famotidine 40 mg PO BEDTIME fluticasone propionate 50 mcg/actuation 1 spray intranasal DAILY folic acid 1 mg PO DAILY gabapentin 300 mg PO BID 30 days levothyroxine 88 mcg PO DAILY lidocaine HCl 4% (Pain Relief (lidocaine)) 1 appl topical BID PRN lorazepam 0.5 mg PO Q4H PRN losartan 25 mg PO DAILY methotrexate sodium 15 mg (6 x 2.5 mg) PO QWEEK ondansetron 4 mg PO NEEDED pantoprazole 40 mg PO DAILY potassium chloride ER 20 mEq PO BID prednisone Take 3 tabs daily for 1 month then remain on 2 tabs daily rituximab (Rituxan) 1,000 mg (100 mL) IV [id number] sennosides 8.6 mg PO BEDTIME solifenacin 10 mg PO DAILY syringe with needle (BD Luer-Joselin Syringe) As directed vibegron (Gemtesa) 75 mg PO DAILY HPI HPI LEFT OCCIPITAL NERVE BLOCK: Details: Patient presents for scheduled procedure. Denies any recent cough, cold, infection, fever or other significant changes in medical history since last office visit. REPLACED BY [facility] Medical History Anxiety and depression Lacunar infarction Diverticulitis Diverticulosis Endometriosis Schatzki's ring Drug-induced lupus erythematosus Encounter for testing for latent tuberculosis infection Afib Osteopenia of multiple sites Rheumatoid arthritis involving multiple sites with positive rheumatoid factor Vitamin D deficiency Primary osteoarthritis of both knees Surgical History H/O unilateral oophorectomy H/O cataract extraction History of bladder suspension procedure H/O elbow replacement H/O tubal ligation History of cholecystectomy History of ankle surgery H/O hand surgery Family History Mother Diabetes Sister Diabetes Pancreatic cancer Father Pancreatic cancer Seizures Social History Household Members: Spouse Alcohol intake: never Patient Tobacco Use Status: Never used Tobacco Current occupational status: disabled Review of Systems Const All systems reviewed & are unremarkable except as noted in HPI and below Physical Exam Vital Signs: Last Vital Signs Pulse 83 10/11/23 11:32 Resp 14 10/11/23 11:32 BP 144/73 H 10/11/23 11:32 Pulse Ox 94 10/11/23 11:32 Oxygen Delivery Method Room Air 10/11/23 11:32 BMI result Body Mass Index 27.0 General: Appears afebrile. Alert and oriented. Mood and affect appropriate. Follows and participates in conversation appropriately. Respiratory effort is unlabored. Able to transition from sit to stand unassisted. Ambulates with bilaterally normal heel strike and toe off. Office Procedures Nerve Block Details: Greater and Lesser Occipital Nerve Block, Left Physical exam was used to isolate the location of the targeted nerves. These injection sites were prepped with alcohol. Using sterile technique, a 27 gauge 1.5 in needle was used to inject 3 mL of ropivacaine 0.5% in the distribution of the greater and lesser occipital nerves in a fan-like motion. The patient tolerated the procedure well and no complications were encountered. Following the procedure the patient's vital signs were stable. The patient was discharged home in good condition with post-procedural instructions. Time Out: Immediately prior to the procedure, the following was verbally confirmed that there is a signed consent form and that the correct patient, planned procedure, site and side are consistent with documentation and that necessary equipment and/or blood products are available prior to the start of the case. Complications: none EBL: <5 cc CPT: [id number] Occipital Procedure code (CPT) selection complete Results Reviewed Results Reviewed: XR CERVICAL SPINE 03/14/23 CLINICAL INFORMATION: Cervical radiculopathy. FINDINGS: There is bony demineralization. There is a slight cervicothoracic levoscoliosis. At C3-C4, there is moderate disc space narrowing. At C5-C6 and C6-C7, there is mild posterior disc space narrowing, with spondylosis. The remaining disc spaces are well-maintained. No acute fracture or spondylolisthesis is seen. The posterior elements are intact. The dens is intact. No prevertebral soft tissue swelling is seen. IMPRESSION: 1. There is moderate degenerative disc disease at C3-C4, and moderately severe degenerative disc disease seen at C5-C6 and C6-C7. 2. There is a slight cervicothoracic levoscoliosis. Assessment & Plan Assessment & Plan (1) Occipital neuralgia: Code(s): M54.81 - Occipital neuralgia Category: Medical Plan Follow-up to assess response to therapy. May consider left auriculotemporal nerve blocks if these are not helpful. Patient is in agreement. Coding Level of Care Code Procedure Only Diagnoses Occipital neuralgia M54.81 CPT Codes Nerve Block - CPT: 95926-[place] Occipital ([id number])
[2023-10-11 11:32] VITALS: BP 144/73; PULSE 83; RESP 14; O2SAT 94; BMI 27.0
== END 2023-10-11 11:45 | disposition home or self-care (01) ==
PROVIDERS: PCP Nurse Practitioner Family; Visit Provider Internal Medicine
DX: M54.81 Occipital neuralgia (principal)
CPT/HCPCS: 64405; 64450

== ENCOUNTER → 2023-10-11 11:23 | Outpatient (BNVA) | payer MEDICARE, BC, SELFPAY | PROVIDERS: PCP Nurse Practitioner Family; Visit Provider Internal Medicine | DX: M54.81 Occipital neuralgia (principal) | CPT/HCPCS: 64405; 64450; J2795 ==

== ENCOUNTER 2023-11-08 10:22 | Outpatient (AMB) | payer MEDICARE, BC, SELFPAY ==
[2023-11-08 10:34] VITALS: BP 168/82; PULSE 114; RESP 14; BMI 27.0
--- NOTE | 2023-11-08 10:34 | MHC.OFFVIS ---
Vital Signs 11/08/23 10:34 Height 5 ft 6 in Weight 167 lb BMI 27.0 BP 168/82 H Blood Pressure Location Rt brachial Position Sitting Respiration 14 Pulse 114 H Pulse Source Pulse Oximeter Intake Visit Reasons: Left auriculotemporal NB Allergies codeine Allergy (Mild, Verified 11/08/23 10:35) Paleness Gold Salts Allergy (Mild, Verified 11/08/23 10:35) Rash Sulfa (Sulfonamide Antibiotics) Allergy (Mild, Verified 11/08/23 10:35) Swelling Medication List - Last Reconciled 11/08/23 by Shayy Antunez LPN alendronate 70 mg PO QWEEK apixaban (Eliquis) 5 mg PO BID biotin 1 mg PO DAILY carvedilol 12.5 mg PO BID cholecalciferol (vitamin D3) 10 mcg PO DAILY cyclobenzaprine 5 mg PO TID PRN escitalopram oxalate 10 mg PO DAILY estradiol 0.01%(0.1mg/gram) grams vaginal NEEDED PRN famotidine 40 mg PO BEDTIME fluticasone propionate 50 mcg/actuation 1 spray intranasal DAILY folic acid 1 mg PO DAILY furosemide mg PO gabapentin 300 mg PO BID 30 days levothyroxine 88 mcg PO DAILY lidocaine HCl 4% (Pain Relief (lidocaine)) 1 appl topical BID PRN lorazepam 0.5 mg PO Q4H PRN losartan 25 mg PO DAILY methotrexate sodium 15 mg (6 x 2.5 mg) PO QWEEK ondansetron 4 mg PO NEEDED pantoprazole 40 mg PO DAILY potassium chloride ER 20 mEq PO BID prednisone 2.5 mg PO DAILY rituximab (Rituxan) 1,000 mg (100 mL) IV [id number] sennosides 8.6 mg PO BEDTIME solifenacin 10 mg PO DAILY syringe with needle (BD Luer-Joselin Syringe) As directed vibegron (Gemtesa) 75 mg PO DAILY HPI HPI Left auriculotemporal NB: Details: 68-year-old female who presents today to the office for a left auriculotemporal nerve block. The patient reports no significant relief following the procedure. The pain is more localized in the neck. The pain is same as it was in the past prior to the procedure. She states that her pain on the right side was more improved after the bilateral RFA, compared to the left. Movements make the pain worse. She has not tried trigger point injection in the past. She has tried acupuncture in the past with minimal relief. Denies any recent cough, cold, infection, fever or other significant changes in medical history since last office visit.? Past procedures 10/11/23: Greater and Lesser Occipital Nerve Block, Left: No relief. 08/28/23: Bilateral C3-C4-C5 MB RFA-50% pain relief 06/20/23: Repeat Diagnostic Bilateral C3-C4-C5 MBBs-80% pain relief for 8 hours 05/01/23: Diagnostic Bilateral C3-C4-C5 MBBs-90% pain relief for 2 days [facility] Medical History Anxiety and depression Lacunar infarction Diverticulitis Diverticulosis Endometriosis Schatzki's ring Drug-induced lupus erythematosus Encounter for testing for latent tuberculosis infection Afib Osteopenia of multiple sites Rheumatoid arthritis involving multiple sites with positive rheumatoid factor Vitamin D deficiency Primary osteoarthritis of both knees Surgical History H/O unilateral oophorectomy H/O cataract extraction History of bladder suspension procedure H/O elbow replacement H/O tubal ligation History of cholecystectomy History of ankle surgery H/O hand surgery Family History Mother Diabetes Sister Diabetes Pancreatic cancer Father Pancreatic cancer Seizures Social History Household Members: Spouse Alcohol intake: never Patient Tobacco Use Status: Never used Tobacco Current occupational status: disabled Review of Systems Const All systems reviewed & are unremarkable except as noted in HPI and below Physical Exam Vital Signs: Last Vital Signs Pulse 114 H 11/08/23 10:34 Resp 14 11/08/23 10:34 BP 168/82 H 11/08/23 10:34 BMI result Body Mass Index 27.0 General: Appears afebrile. Alert and oriented. Mood and affect appropriate. Follows and participates in conversation appropriately. Respiratory effort is unlabored. Able to transition from sit to stand unassisted. Ambulates with bilaterally normal heel strike and toe off. Lateral bending is painful on both sides. Lateral rotation to the right side reproduces pain on the left neck muscles. An observation to the neck slightly tilted towards the right side and there is a palpable spastic muscle in the left paraspinal area of the neck. Office Procedures Injection Trigger Point Multi Pre-procedure diagnosis: Myofascial pain Post-procedure diagnosis: Myofascial pain Site and number of trigger points: Left cervicalis Left occipitalis? Left trapezius Solution: Total volume administered 10 ml (5 ml lidocaine 1% + 5 ml ropivacaine 0.25%). The procedure, its benefits, and its risks were explained to the patient and all questions were answered. A pulse oximeter monitor was attached and the patient was monitored throughout the procedure. Prior to the start of the procedure, a ?time out? was performed to confirm correct patient, procedure, and laterality. Trigger points were identified by manual palpation and marked. The skin was cleaned with Chloraprep. A 1.5 inch 25 G needle was used. Each of the trigger points were approximated and elevated in the direction away from the body. Dry needling then took place for five seconds. Approximately 0.5 ml to 1 ml of injectate was delivered to the trigger point followed by dry needling for five seconds. This process was repeated at each trigger point site. The patient tolerated the procedure well. The patient tolerated the procedure well, without complication. The patient denied any numbness, paresthesias, or weakness. Post-procedure vitals were recorded as part of the nursing discharge note in electronic medical record. Following a period of observation, the patient was discharged in stable condition with written discharge instructions. Trigger Point Multiple: 07830- Trigger point injection =/>3 Results Reviewed Results Reviewed: No imaging is available for review. Assessment & Plan Assessment & Plan (1) Myofascial pain syndrome, cervical: Code(s): M79.18 - Myalgia, other site Category: Medical (2) Cervical dystonia: Code(s): G24.3 - Spasmodic torticollis Category: Medical Plan S/p cervical trigger point injections today. If these are not helpful, we will consider requesting PA for Botox for cervical dystonia and if that is not helpful, then we can consider a trial of temporary nerve stimulation of the medial branches. We will follow-up in two weeks via telephone or in clinic to assess response to therapy. A follow-up appointment was made during today's visit. Scribed for Dr. Ortiz by Damien Rosales medical numerical control operator, on 11/08/2023. I, Dr. Ortiz, have personally reviewed and agree with the information entered by the karlene. Coding Level of Care Code Est Pt Level 4 (60002) Diagnoses Myofascial pain syndrome, cervical M79.18 Cervical dystonia G24.3 CPT Codes Details - Trigger Point Multiple: 72065- Trigger point injection =/>3 ([id number])
== END 2023-11-08 10:53 | disposition home or self-care (01) ==
PROVIDERS: PCP Nurse Practitioner Family; Visit Provider Internal Medicine
DX: M79.18 Myalgia, other site (principal)
CPT/HCPCS: 20553

== ENCOUNTER → 2023-11-08 10:22 | Outpatient (BNVA) | payer MEDICARE, BC, SELFPAY | PROVIDERS: PCP Nurse Practitioner Family; Visit Provider Internal Medicine | DX: M79.18 Myalgia, other site (principal); G24.3 Spasmodic torticollis | CPT/HCPCS: 20553 ==

== ENCOUNTER 2023-11-18 12:56 | Outpatient (AMB) | payer MEDICARE, BC, SELFPAY ==
--- NOTE | 2023-11-18 12:59 | A.OFFVIS_ITS ---
Vital Signs 3 11/18/23 13:02 Height 5 ft 6 in Weight 176 lb BMI 28.4 BP 181/86 H Blood Pressure Location Lt brachial Position Sitting Pulse 75 Pulse Source Pulse Oximeter Pulse Oximetry (%) 97 Oxygen Delivery Method Room Air Intake Visit Reasons: s/p left auriculotemporal NB Intake Note: Pain today 09/05 Reimbursement Auditor Required: No Accompanied by: Spouse Allergies codeine Allergy (Mild, Verified 11/18/23 13:03) Paleness Gold Salts Allergy (Mild, Verified 11/18/23 13:03) Rash Sulfa (Sulfonamide Antibiotics) Allergy (Mild, Verified 11/18/23 13:03) Swelling HPI Comments Details: Patient presents today to assess response to cervical trigger point injections on 11/08/[address] Ortiz. Patient reports 50% ongoing pain relief since procedure with partial improvement in her daily functioning and sleep but continues to experience pain in the back of her head on the left and down to her left neck, left trapezius and numbness and tingling in her left upper extremity. This is worse at evening and bedtime. She has multifactorial neck and occipital pain with combination of muscle spasms and occipital neuralgia. Patient states her pain on the right side has improved after the bilateral RFA, compared to the left. Movements make the pain worse. She takes lorazepam for sleep and anxiety and Tylenol and muscle relaxant with partial relief. Denies any recent cough, cold, infection, shortness of breaths, chest pain, fever or other significant changes in medical history since last office visit. Past Procedures: 11/08/23: Cervical trigger point injections (left cervicalis, occipitalis, trapezius)-50% ongoing pain relief 08/28/23: Bilateral C3-C4-C5 MB RFA-50% pain relief 06/20/23: Repeat Diagnostic Bilateral C3-C4-C5 MBBs-80% pain relief for 8 hours 05/01/23: Diagnostic Bilateral C3-C4-C5 MBBs-90% pain relief for 2 days PRIOR: Patient presents today via telehealth encounter to follow up for chronic neck pain. Patient continues to endorse axial cervical spine neck pain and muscle spasms. Pain radiates to her left occipital area and intermittently to left shoulder. She takes Flexeril 2-3 days per day without any side effects and Tylenol. Patient has been doing daily home exercise program to increase cervical ROM, strength and improve flexibility as well as has been attending acupuncture therapy for 5 months with temporary symptom relief. Her neck pain is worsened with any neck movements, worse when she looks up or moves her head side to sides as well with prolonged reading. Pain continues to negatively affects her daily functioning and activities, sleep and quality of life. Patient is interested to proceed with diagnostic cervical MBBs for potential Sprint PNS trial or RFA procedures. Denies any recent cough, cold, infection, fever or other significant changes in medical history since last office visit. PRIOR: Patient is a pleasant 67 years old female with history of longstanding severe erosive and deforming RA s/p multiple surgical procedures including right elbow replacement, bilateral hand tendon surgeries, right hand MCPs surgeries, right ankle fusion, presents today for initial evaluation of left sided neck pain associated with left upper shoulder pain. Her pain also radiates into her left occipital region and left shoulder with numbness, tinglings and throbbing sensations. Patient is accompanied by her and she has arrived in a wheelchair. Denies any recent injury, trauma, or falls. Patient has difficulty with neck rotation, especially on the left. Patient has multiple joint pain related to RA and has been using a wheelchair since 2019, especially due to bilateral knee pain. She is able to get out of WC without difficulty but with slow, antalgic gait. Pain affects her daily activities, functioning, sleep, mood and quality of life. She has tried to manage her pain with acupuncture, ice therapy, massage, home exercise program with neck stretching exercises, and muscle relaxants with mild pain relief. Patient reports she was told by her neurologist Dr. Schaefer in [facility] that her symptoms are consistent with occipital neuralgia. Denies any recent cough, cold, infection, fever, weight loss, vision changes, shortness of breaths, chest pain, headaches, any bladder or bowel incontinence or saddle anesthesia. Location Left side of neck radiates down left shoulder and occipital region Duration For 4 months, no inciting events Characteristics of symptom or complaint Aching, spasming, numb, throbbing, shocking Aggravating or associated factors Any neck movements, worse with extension and side rotations Relieving factors Flexeril, ice therapy, laying down, morphine, Tylenol, lidocaine patches Treatment Acupuncture, massage, home stretching exercises Patient's Neck Disability Index score: 34/50=68.0 percent Pertinent Positives per patient: It is painful to look after myself and I am slow and careful; I can read as much as I want to with moderate pain in my neck; I have a fair degree of difficulty in concentrating when I want to; The pain is fairly severe at the moment; Pain prevents me from lifting heavy weights, but I can manage light to medium weights if they are conveniently positioned; I have severe headaches, which come frequently; I can hardly do any work at all; I cannot drive my car at all; My sleep is greatly disturbed (3-5 hrs sleepless); I can't do any recreation activities at all; [facility] Medical History Anxiety and depression Lacunar infarction Diverticulitis Diverticulosis Endometriosis Schatzki's ring Drug-induced lupus erythematosus Encounter for testing for latent tuberculosis infection Afib Osteopenia of multiple sites Rheumatoid arthritis involving multiple sites with positive rheumatoid factor Vitamin D deficiency Primary osteoarthritis of both knees Surgical History H/O unilateral oophorectomy H/O cataract extraction History of bladder suspension procedure H/O elbow replacement H/O tubal ligation History of cholecystectomy History of ankle surgery H/O hand surgery Family History Mother Diabetes Sister Diabetes Pancreatic cancer Father Pancreatic cancer Seizures Social History Household Members: Spouse Alcohol intake: never Patient Tobacco Use Status: Never used Tobacco Current occupational status: disabled Review of Systems Const All systems reviewed & are unremarkable except as noted in HPI and below Physical Exam Vital Signs: Last Vital Signs Pulse 75 11/18/23 13:02 BP 181/86 H 11/18/23 13:02 Pulse Ox 97 11/18/23 13:02 Oxygen Delivery Method Room Air 11/18/23 13:02 BMI result Body Mass Index 28.4 General: Appears afebrile. Alert and oriented. Mood and affect appropriate. Follows and participates in conversation appropriately. Respiratory effort is unlabored. Able to transition from sit to stand unassisted. Sits comfortably in the wheelchair. Able to ambulate with assistance. Neck Neck: Yes normal visual inspection, Yes no lymphadenopathy, Yes supple, No anterior neck swelling, Yes torticollis (mild on the left), Yes no JVD, No prominent supraclavicular fat pad and No prominent dorsocervical fat pad Back/Spine/Pelvis Other: Lateral cervical axial rotation and bending is painful on both sides. Lateral rotation to the right side reproduces pain on the left neck muscles. Patient's neck is slightly tilted towards the right side and there is a palpable spastic muscle in the left paraspinal area of the neck. Cervical Spine: No collar present, loss of normal cervical lordosis, cervical muscular tenderness, pain with cervical ROM, cervical spasm (left) and No Cervical spine tenderness Results Reviewed Results Reviewed: XR CERVICAL SPINE 03/14/23 CLINICAL INFORMATION: Cervical radiculopathy. FINDINGS: There is bony demineralization. There is a slight cervicothoracic levoscoliosis. At C3-C4, there is moderate disc space narrowing. At C5-C6 and C6-C7, there is mild posterior disc space narrowing, with spondylosis. The remaining disc spaces are well-maintained. No acute fracture or spondylolisthesis is seen. The posterior elements are intact. The dens is intact. No prevertebral soft tissue swelling is seen. IMPRESSION: 1. There is moderate degenerative disc disease at C3-C4, and moderately severe degenerative disc disease seen at C5-C6 and C6-C7. 2. There is a slight cervicothoracic levoscoliosis. Assessment & Plan Assessment & Plan (1) Cervical dystonia: Code(s): G24.3 - Spasmodic torticollis Category: Medical (2) Myofascial pain syndrome, cervical: Code(s): M79.18 - Myalgia, other site Category: Medical (3) Occipital neuralgia: Code(s): M54.81 - Occipital neuralgia Category: Medical (4) Paresthesia of left upper extremity: Code(s): R20.2 - Paresthesia of skin Category: Medical Plan Patient is status post cervical trigger point injections on 11/08/23 with parital pain and functionig improvement. She is interested to undergo Neurodiagnostic studies prior to requesting PA for Botox for cervical dystonia. We also reviewed trial of temporary nerve stimulation of the medial branches if no pain relief with Botox injections. Informational pamphlet was provided to patient and family today. All questions and concerns have been answered and patient agreed with the plan. Follow up for EMG/NVC studies and sooner as needed. Orders: Orders 2 NE electromyogram (EMG) Today G24.3 - Spasmodic torticollis, M54.81 - Occipital neuralgia, M79.18 - Myalgia, other site, R20.2 - Paresthesia of skin NE nerve conduction velocity Today G24.3 - Spasmodic torticollis, M54.81 - Occipital neuralgia, M79.18 - Myalgia, other site, R20.2 - Paresthesia of skin Coding Level of Care Code Est Pt Level 4 (05836) Diagnoses Cervical dystonia G24.3 Myofascial pain syndrome, cervical M79.18 Occipital neuralgia M54.81 Paresthesia of left upper extremity R20.2
[2023-11-18 13:02] VITALS: BP 181/86; PULSE 75; O2SAT 97; BMI 28.4
== END 2023-11-18 13:38 | disposition home or self-care (01) ==
PROVIDERS: PCP Nurse Practitioner Family; Visit Provider Nurse Practitioner Family
DX: G24.3 Spasmodic torticollis (principal); M79.18 Myalgia, other site; M54.81 Occipital neuralgia; R20.2 Paresthesia of skin
CPT/HCPCS: 99214

== ENCOUNTER → 2023-11-18 12:56 | Outpatient (BNVA) | payer MEDICARE, BC, SELFPAY | PROVIDERS: PCP Nurse Practitioner Family; Visit Provider Nurse Practitioner Family | DX: G24.3 Spasmodic torticollis (principal); M79.18 Myalgia, other site; M54.81 Occipital neuralgia; R20.2 Paresthesia of skin | CPT/HCPCS: 99212 ==

== ENCOUNTER 2023-12-06 13:28 | Outpatient (REF) | payer MEDICARE, BC, SELFPAY ==
--- NOTE | 2023-12-06 13:32 | EMG_ITS ---
Chief complaint: Left arm pain and numbness, neck pain, history of RA with ulnar deviation of fingers. Reason for referral: Evaluate for radiculopathy Referred by: Lyndsay Reynoso NP Procedure done: Left upper extremity NCS/EMG Precautions and/or limitations: On Eliquis The limb temperature was monitored continuously and remained between 32-36 degrees C during the performance of the NCS. Nerve Conduction Studies Anti Sensory Summary Table ?Stim Site NR Onset (ms) Norm Onset (ms) Peak (ms) Norm Peak (ms) O-P Amp (?V) Norm O-P Amp Site1 Site2 Delta-0 (ms) Dist (cm) Dat (m/s) Norm Dat (m/s) Left Median Anti Sensory (2nd Digit) Wrist ? 2.6 3.4 <3.6 38.7 >10 Wrist 2nd Digit 2.6 14.0 54 Left Radial Anti Sensory (Thumb) Forearm ? 1.9 2.6 <3.1 15.4 Forearm Thumb 1.9 0.0 Left Ulnar Anti Sensory (5th Digit) Wrist ? 2.4 3.6 <3.7 15.8 >15.0 Wrist 5th Digit 2.4 14.0 58 Motor Summary Table ?Stim Site NR Onset (ms) Norm Onset (ms) O-P Amp (mV) Norm O-P Amp iAmp (mV) Amp (1st) (%) Site1 Site2 Delta-0 (ms) Dist (cm) Dat (m/s) Norm Dat (m/s) Left Median Motor (Abd Poll Brev) Wrist ? 3.4 <3.9 9.5 >4.5 13.6 100.0 Elbow Wrist 2.9 16.5 57 >45 Elbow ? 6.3 8.0 10.7 84.2 Left Ulnar Motor (Abd Dig Minimi) Wrist ? 3.0 <3.0 7.9 >5 9.4 100.0 B Elbow Wrist 2.3 15.0 65 >45 B Elbow ? 5.3 7.0 8.6 88.6 A Elbow B Elbow 1.8 10.0 56 >45 A Elbow ? 7.1 6.9 8.5 87.3 EMG ?Side Muscle Nerve Root Ins Act Fibs Psw Amp Dur Poly Recrt Int Pat Comment Left 1stDorInt Ulnar C8-T1 Nml Nml Nml Nml Nml 0 Nml Complete Left FlexCarRad Median C6-7 Nml Nml Nml Nml Nml 0 Nml Complete Left Biceps Musculocut C5-6 Nml Nml Nml Nml Nml 0 Nml Complete Left Triceps Radial C6-7-8 Nml Nml Nml Nml Nml 0 Nml Complete Left Deltoid Axillary C5-6 Nml Nml Nml Nml Nml 0 Nml Complete Left Trapezius SpinalAcc CN XI, C3-4 Nml Nml Nml Nml Nml 0 Nml Complete FINDINGS: All motor and sensory nerves tested showed normal latencies, amplitudes and conduction velocities. Concentric needle EMG was performed in selected muscles of the left upper extremity. Study did not reveal signs of electric abnormalities as shown in the table above. IMPRESSION: 1. This is a normal study. 2. There is no electrodiagnostic evidence for median neuropathy, ulnar neuropathy, brachial plexopathy, or cervical radiculopathy. Thank you for your kind referral. Katie Tracy MD, YING Board Certified, [place] Board of Physical Medicine and Rehabilitation (ABPMR) Board Certified, [place] Board of Electrodiagnostic Medicine (ABEM) [place] [id number] [facility]
== END 2023-12-06 13:29 | disposition home or self-care (01) ==
LOC: HO.NEURO 13:28
PROVIDERS: PCP Nurse Practitioner Family; Visit Provider Nurse Practitioner Family
DX: R20.2 Paresthesia of skin (principal); M54.81 Occipital neuralgia; G24.3 Spasmodic torticollis; M79.18 Myalgia, other site; M54.12 Radiculopathy, cervical region
CPT/HCPCS: 95886; 95909

== ENCOUNTER → 2023-12-06 13:32 | Outpatient (BNV) | payer MEDICARE, BC, SELFPAY | PROVIDERS: PCP Nurse Practitioner Family; Visit Provider Physical Medicine & Rehabilitation | DX: M79.602 Pain in left arm (principal); R20.2 Paresthesia of skin | CPT/HCPCS: 95886; 95909 ==

== ENCOUNTER 2023-12-23 15:23 | Outpatient (AMB) | payer MEDICARE, BC, SELFPAY ==
[2023-12-23 15:25] VITALS: BP 152/82; PULSE 78; O2SAT 100; BMI 28.3
--- NOTE | 2023-12-23 15:25 | MHC.OFFVIS ---
Vital Signs 12/23/23 15:25 Height 5 ft 6 in Weight 175 lb 0.752 oz BMI 28.3 BP 152/82 H Blood Pressure Location Lt brachial Position Sitting Pulse 78 Pulse Source Pulse Oximeter Pulse Oximetry (%) 100 Oxygen Delivery Method Room Air Intake Visit Reasons: RA Intake Note: Patient last seen by Doctor Willi Wells on 09/18/23. Presents today for RA follow up.? Allergies codeine Allergy (Mild, Verified 12/23/23 15:29) Paleness Gold Salts Allergy (Mild, Verified 12/23/23 15:29) Rash Sulfa (Sulfonamide Antibiotics) Allergy (Mild, Verified 12/23/23 15:29) Swelling Medication List - Last Reconciled 12/23/23 by Willi Wells MD alendronate 70 mg PO QWEEK apixaban (Eliquis) 5 mg PO BID ascorbic acid (vitamin C) mg PO biotin 1 mg PO DAILY carvedilol 12.5 mg PO BID cephalexin 500 mg PO BID cholecalciferol (vitamin D3) 10 mcg PO DAILY cyclobenzaprine 5 mg PO TID PRN escitalopram oxalate 10 mg PO DAILY estradiol 0.01%(0.1mg/gram) grams vaginal NEEDED PRN famotidine 40 mg PO BEDTIME fluticasone propionate 50 mcg/actuation 1 spray intranasal DAILY folic acid 1 mg PO DAILY furosemide mg PO gabapentin 300 mg PO BID 30 days levothyroxine 88 mcg PO DAILY lidocaine HCl 4% (Pain Relief (lidocaine)) 1 appl topical BID PRN lorazepam 0.5 mg PO Q4H PRN losartan 25 mg PO DAILY methotrexate sodium 15 mg (6 x 2.5 mg) PO QWEEK ondansetron 4 mg PO NEEDED oxybutynin chloride ER 10 mg PO DAILY pantoprazole 40 mg PO DAILY potassium chloride ER 20 mEq PO BID prednisone 2.5 mg PO DAILY rituximab (Rituxan) 1,000 mg (100 mL) IV [id number] sennosides 8.6 mg PO BEDTIME solifenacin 10 mg PO DAILY syringe with needle (BD Luer-Joselin Syringe) As directed vibegron (Gemtesa) 75 mg PO DAILY HPI Comments Details: 68-year-old female with longstanding deforming RA returns for follow-up with her . She remains on methotrexate 15 mg weekly, folic acid daily, and alendronate weekly. Prednisone was discontinued. She states that she has been waking up with a cough productive of grayish sputum not mixed with blood. She states that she has history of reflux and is on 2 medicines for reflux. She denies any fevers. She states that she has chronic shortness of breath. Slightly worse over the last few months. She states that she had an episode of iritis 3-4 weeks ago that resolved with prednisolone eyedrops. She has been having more stiffness and weakness with her knees. She has been working with PT at home Her RA is doing fairly well overall. She complains of generalized weakness. She was recently started on furosemide by her finishing and shipping supervisor for bilateral leg swelling. Over the last few months she developed 3 episodes of UTI, she had some delirium. They were promptly diagnosed and treated. She had a rib fracture recently when she bent offer. There was no significant trauma Initial history: This is a 67-year-old female with complex past medical history including standing deforming RA who presents as a new patient. Her previous editing clerk left the practice. Her most recent editing clerk was Dr. Davis. She stated that she was diagnosed with rheumatoid arthritis back in the 70s. She had an allergic reaction to gold. She was on Remicade, Humira, Enbrel, Orencia. All of which worked for a while then lost their efficacy. She was on Xeljanz for a few years then she developed drug-induced lupus erythematosus per patient. She had diffuse blistering skin rash and hair loss. At that time 6 medicines were discontinued including Xeljanz. Most recently she received rituximab towards the end of 2020 and another rituximab course in 09/2021. Per notes patient seen to have some improvement with rituximab Patient has a history of recurrent diverticulitis. Patient has severe deforming RA s/p multiple surgeries including right elbow replacement, bilateral hand tendon surgeries, right hand MCPs surgeries, right ankle fusion. She had been on prednisone as a monotherapy for years. She is currently on 10 mg daily. She gets recurrent iritis that she treats with topical steroid eyedrops. She states that she gets those recurrent iritis every few months. Patient has been using wheelchair since 2019 due to bilateral knee pain. States that her knees give out . She can walk 1/8of a mile per on a good day. She states that the majority of her joint pain over the last few years has been her knees. She received multiple intra-articular steroid injections last year with some relief. [facility] Medical History Anxiety and depression Lacunar infarction Diverticulitis Diverticulosis Endometriosis Schatzki's ring Drug-induced lupus erythematosus Encounter for testing for latent tuberculosis infection Afib Osteopenia of multiple sites Rheumatoid arthritis involving multiple sites with positive rheumatoid factor Vitamin D deficiency Primary osteoarthritis of both knees Surgical History H/O unilateral oophorectomy H/O cataract extraction History of bladder suspension procedure H/O elbow replacement H/O tubal ligation History of cholecystectomy History of ankle surgery H/O hand surgery Family History Mother Diabetes Sister Diabetes Pancreatic cancer Father Pancreatic cancer Seizures Social History Household Members: Spouse Alcohol intake: never Patient Tobacco Use Status: Never used Tobacco Current occupational status: disabled Female Reproductive History Menstrual Total pregnancies: 3 Number of Living Children: 3 Review of Systems Const Reports fatigue, Denies fever(s) and Reports weakness Eyes Reports no additional complaints Card Reports dyspnea on exertion Resp Reports cough, Denies pain with cough and Reports dyspnea on exertion Musc Reports arthralgias, Denies joint swelling and Reports stiffness Neuro Reports weakness Endo Reports fatigue Physical Exam Vital Signs: Last Vital Signs Pulse 78 12/23/23 15:25 BP 152/82 H 12/23/23 15:25 Pulse Ox 100 12/23/23 15:25 Oxygen Delivery Method Room Air 12/23/23 15:25 BMI result Body Mass Index 28.3 Const General: cooperative, healthy appearing and comfortable Nutritional Appearance: overweight Orientation/consciousness: patient oriented x3 Limitations: wheelchair (Able to stand up and walk around carefully) HEENT Head: Yes normocephalic and Yes atraumatic Mouth: moist mucous membranes Resp Effort & Inspection: normal respiratory effort and able to speak in complete sentences Auscultation: crackles bilateral at the base and in the upper lung grigsby Cardio Rate: regular rate Rhythm: regular rhythm Skin General skin exam: no rashes or lesions noted Neuro General: patient oriented x3 Extrem Other: Extensive RA deformities and multiple surgical procedures Right elbow contracture s/p arthroplasty Right wrist contracture s/p surgery, barely any flexion or extension Bilateral ulnar deviation at the MCPs. Good weatherization field technician strength bilaterally No active synovitis today. Good weatherization field technician strength bilaterally Normal nailfold capillaroscopy Right ankle fusion no ankle swelling tenderness or warmth Left ankle without swelling tenderness or erythema bilateral fibular deviation of her toes No MTP tenderness Negative MTP squeeze test Assessment & Plan Assessment & Plan (1) Rheumatoid arthritis involving multiple sites with positive rheumatoid factor: Comment: dx in 1970s Gold--> allergic reaction HCQ ineffective MTX caused diarrhea and GI upset even when switched to SQ Remicade, Enbrel, Humira, all worked for sometime then lost their efficacy Orencia Celebrex not effective Xeljanz effective for a few years then DC due to DILE (is unclear we whether it was because Xeljanz as 5 other medicines were stopped) RTX given end of 2020 & 09/2021. 08/2022,03/2023 effective, 1 dose 09/2023 Code(s): M05.79 - Rheumatoid arthritis with rheumatoid factor of multiple sites without organ or systems involvement Category: Medical Plan: This is a 68 year female with longstanding severe erosive RA s/p multiple surgical procedures who presents for follow-up Patient has tried and failed multiple DMARDs. Please see above. She is currently on rituximab infusions and methotrexate 15 mg weekly, and folic acid daily. After last visit prednisone was slowly tapered off. It seems that she has been having more joint pain and stiffness. She also had a minor episode of iritis that rapidly responded to steroid eyedrops Restart prednisone at 2.5 mg daily Continue with methotrexate 15 mg weekly, folic acid 1 mg daily Plan to repeat rituximab infusion, 1 g in March of 2024. If patient is flaring at that time, can consider doing 2 g Labs before next visit in 3 months (2) Osteopenia of multiple sites: Code(s): M85.89 - Other specified disorders of bone density and structure, multiple sites Category: Medical Plan: DEXA 01/2023 showed osteopenia with a high FRAX score. Continue with Fosamax 70 mg weekly Plan to repeat DEXA in the fall of 2024. (3) Cough: Code(s): R05.9 - Cough, unspecified Category: Medical Qualifiers: Cough type: subacute Qualified Code(s): R05.2 - Subacute cough Plan: Cough productive of sputum, more prominent after she wakes up, may be related to her history of reflux and Schatzki ring. Advised patient to follow-up with her bull rider. She also has lung crackles. Advised patient has been to send me the most recent 2D echo. 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 Panel 3 Months M05.79 - Rheumatoid arthritis with rheumatoid factor of multiple sites without organ or systems involvement Erythrocyte Sedimentation Rate 3 Months M05.79 - Rheumatoid arthritis with rheumatoid factor of multiple sites without organ or systems involvement Complete Blood Count Auto Diff 3 Months M05.79 - Rheumatoid arthritis with rheumatoid factor of multiple sites without organ or systems involvement C Reactive Protein 3 Months M05.79 - Rheumatoid arthritis with rheumatoid factor of multiple sites without organ or systems involvement Medications: Refilled prednisone 2.5 mg PO DAILY 90 tabs 1RF methotrexate sodium 15 mg (6 x 2.5 mg) PO QWEEK 72 tabs 1RF M05.79 - Rheumatoid arthritis with rheumatoid factor of multiple sites without organ or systems involvement Coding Level of Care Code Est Pt Level 5 (71074) Complex EM visit Add On G2211 Diagnoses Rheumatoid arthritis involving multiple sites with positive rheumatoid factor M05.79 Osteopenia of multiple sites M85.89 Subacute cough R05.2 Cough type: subacute penitentiary methotrexate user Z79.631
== END 2023-12-23 16:01 | disposition home or self-care (01) ==
LOC: HO.RHE 15:23
PROVIDERS: PCP Nurse Practitioner Family; Visit Provider Student in an Organized Health Care Education/Training Program
DX: M05.79 Rheumatoid arthritis with rheumatoid factor of multiple sites without organ or systems involvement (principal); M85.89 Other specified disorders of bone density and structure, multiple sites; R05.2 Subacute cough; Z79.631 Long term (current) use of antimetabolite agent
CPT/HCPCS: 99215; G2211

== ENCOUNTER → 2023-12-23 15:23 | Outpatient (BNVA) | payer MEDICARE, BC, SELFPAY | PROVIDERS: PCP Nurse Practitioner Family; Visit Provider Student in an Organized Health Care Education/Training Program | DX: M05.79 Rheumatoid arthritis with rheumatoid factor of multiple sites without organ or systems involvement (principal); M85.89 Other specified disorders of bone density and structure, multiple sites; R05.2 Subacute cough; Z79.631 Long term (current) use of antimetabolite agent; Z79.83 Long term (current) use of bisphosphonates | CPT/HCPCS: 99212 ==

== ENCOUNTER 2024-02-21 11:19 | Outpatient (AMB) | payer MEDICARE, BC, SELFPAY ==
--- NOTE | 2024-02-21 11:21 | MHC.OFFVIS ---
Vital Signs 02/21/24 11:23 Height 5 ft 6 in Weight 167 lb BMI 27.0 BP 147/83 H Blood Pressure Location Lt brachial Position Sitting Respiration 15 Pulse 87 Pulse Source Pulse Oximeter Pulse Oximetry (%) 91 L Oxygen Delivery Method Room Air Intake Visit Reasons: Left auriculotemporal NB Allergies codeine Allergy (Mild, Verified 02/26/24 14:05) Paleness Gold Salts Allergy (Mild, Verified 02/26/24 14:05) Rash Sulfa (Sulfonamide Antibiotics) Allergy (Mild, Verified 02/26/24 14:05) Swelling Medication List - Last Reconciled 02/21/24 by Shayy Antunez, HUMPHREY alendronate 70 mg PO QWEEK apixaban (Eliquis) 5 mg PO BID ascorbic acid (vitamin C) mg PO biotin 1 mg PO DAILY carvedilol 12.5 mg PO BID cephalexin 500 mg PO BID cholecalciferol (vitamin D3) 10 mcg PO DAILY cyclobenzaprine 5 mg PO TID PRN escitalopram oxalate 10 mg PO DAILY estradiol 0.01%(0.1mg/gram) grams vaginal NEEDED PRN famotidine 40 mg PO BEDTIME fluticasone propionate 50 mcg/actuation 1 spray intranasal DAILY folic acid 1 mg PO DAILY furosemide mg PO gabapentin 300 mg PO BID 30 days levothyroxine 88 mcg PO DAILY lidocaine HCl 4% (Pain Relief (lidocaine)) 1 appl topical BID PRN lorazepam 0.5 mg PO Q4H PRN losartan 25 mg PO DAILY methenamine hippurate 1 g PO BID methotrexate sodium 15 mg (6 x 2.5 mg) PO QWEEK ondansetron 4 mg PO NEEDED oxybutynin chloride ER 10 mg PO DAILY pantoprazole 40 mg PO DAILY potassium chloride ER 20 mEq PO BID prednisone 2.5 mg PO DAILY rituximab (Rituxan) 1,000 mg (100 mL) IV [id number] sennosides 8.6 mg PO BEDTIME solifenacin 10 mg PO DAILY syringe with needle (BD Luer-Joselin Syringe) As directed vibegron (Gemtesa) 75 mg PO DAILY HPI HPI Left auriculotemporal NB: Details: 69-year-old female who presents today to the office for cervical trigger point injections. Patient presents for scheduled procedure. Denies any recent cough, cold, infection, fever or other significant changes in medical history since last office visit. She is currently taking Eliquis 5 mg. Past Procedures: 11/08/23: Cervical trigger point injections (left cervicalis, occipitalis, trapezius)- 50% ongoing pain relief 08/28/23: Bilateral C3-C4-C5 MB RFA-50% pain relief 06/20/23: Repeat Diagnostic Bilateral C3-C4-C5 MBBs-80% pain relief for 8 hours 05/01/23: Diagnostic Bilateral C3-C4-C5 MBBs-90% pain relief for 2 days [facility] Medical History Anxiety and depression Lacunar infarction Diverticulitis Diverticulosis Endometriosis Schatzki's ring Drug-induced lupus erythematosus Encounter for testing for latent tuberculosis infection Afib Osteopenia of multiple sites Rheumatoid arthritis involving multiple sites with positive rheumatoid factor Vitamin D deficiency Primary osteoarthritis of both knees Surgical History H/O unilateral oophorectomy H/O cataract extraction History of bladder suspension procedure H/O elbow replacement H/O tubal ligation History of cholecystectomy History of ankle surgery H/O hand surgery Family History Mother Diabetes Sister Diabetes Pancreatic cancer Father Pancreatic cancer Seizures Social History Household Members: Spouse Alcohol intake: never Patient Tobacco Use Status: Never used Tobacco Current occupational status: disabled Review of Systems Const All systems reviewed & are unremarkable except as noted in HPI and below Physical Exam Vital Signs: Last Vital Signs Pulse 87 02/21/24 11:23 Resp 15 02/21/24 11:23 BP 147/83 H 02/21/24 11:23 Pulse Ox 91 L 02/21/24 11:23 Oxygen Delivery Method Room Air 02/21/24 11:23 BMI result Body Mass Index 27.0 General: Appears afebrile. Alert and oriented. Mood and affect appropriate. Follows and participates in conversation appropriately. Respiratory effort is unlabored. Able to transition from sit to stand unassisted. Ambulates with bilaterally normal heel strike and toe off. Office Procedures Injection Trigger Point Multi Cervical trigger point injections (left cervicalis, occipitalis, trapezius) Pre-procedure diagnosis: Myofascial pain Post-procedure diagnosis: Myofascial pain Site and number of trigger points: Left cervicalis Left occipitalis? Left trapezius Solution: Total volume administered 10 ml (5 ml lidocaine 1% + 5 ml ropivacaine 0.25%). The procedure, its benefits, and its risks were explained to the patient and all questions were answered. A pulse oximeter monitor was attached and the patient was monitored throughout the procedure. Prior to the start of the procedure, a ?time out? was performed to confirm correct patient, procedure, and laterality. Trigger points were identified by manual palpation and marked. The skin was cleaned with Chloraprep. A 1.5 inch 25 G needle was used. Each of the trigger points were approximated and elevated in the direction away from the body. Dry needling then took place for five seconds. Approximately 0.5 ml to 1 ml of injectate was delivered to the trigger point followed by dry needling for five seconds. This process was repeated at each trigger point site. The patient tolerated the procedure well. The patient tolerated the procedure well, without complication. The patient denied any numbness, paresthesias, or weakness. Post-procedure vitals were recorded as part of the nursing discharge note in electronic medical record. Following a period of observation, the patient was discharged in stable condition with written discharge instructions. Trigger Point Multiple: 22270- Trigger point injection =/>3 Results Reviewed Results Reviewed: No imaging is available for review. Assessment & Plan Assessment & Plan (1) Myofascial pain syndrome, cervical: Code(s): M79.18 - Myalgia, other site Category: Medical Plan Patient is status post cervical trigger point injections (left cervicalis, occipitalis, trapezius). Patient tolerated procedure well and was discharged home in stable condition with discharge instructions. All questions were answered. We will follow-up via telephone or in clinic to assess response to therapy. A follow-up appointment was made during today's visit. Scribed for Dr. Ortiz by Damien Rosales, medical office coordinator, on 02/21/2024. I, Dr. Ortiz, have personally reviewed and agree with the information entered by the scribe. Coding Level of Care Code Procedure Only Diagnoses Myofascial pain syndrome, cervical M79.18 CPT Codes Details - Trigger Point Multiple: 87285- Trigger point injection =/>3 ([id number])
[2024-02-21 11:23] VITALS: BP 147/83; PULSE 87; RESP 15; O2SAT 91; BMI 27.0
== END 2024-02-21 11:51 | disposition home or self-care (01) ==
PROVIDERS: PCP Nurse Practitioner Family; Visit Provider Internal Medicine
DX: M79.18 Myalgia, other site (principal)
CPT/HCPCS: 20553

== ENCOUNTER → 2024-02-21 11:19 | Outpatient (BNVA) | payer MEDICARE, BC, SELFPAY | PROVIDERS: PCP Nurse Practitioner Family; Visit Provider Internal Medicine | DX: M79.18 Myalgia, other site (principal) | CPT/HCPCS: 20553; J2795 ==

== ENCOUNTER 2024-02-26 13:42 | Outpatient (AMB) | payer MEDICARE, BC, SELFPAY ==
--- NOTE | 2024-02-26 14:01 | A.OFFVIS_ITS ---
Vital Signs 02/26/24 14:10 Height 5 ft 6 in Weight 172 lb 9.951 oz BMI 27.9 BP 142/98 H Blood Pressure Location Rt brachial Position Sitting Pulse 89 Pulse Source Pulse Oximeter Pulse Oximetry (%) 98 Oxygen Delivery Method Room Air Oxygen Flow Rate 0 Intake Visit Reasons: RA Intake Note: Patient presents for RA. Allergies codeine Allergy (Mild, Verified 02/26/24 14:05) Paleness Gold Salts Allergy (Mild, Verified 02/26/24 14:05) Rash Sulfa (Sulfonamide Antibiotics) Allergy (Mild, Verified 02/26/24 14:05) Swelling Medication List - Last Reconciled 02/26/24 by Willi Wells MD alendronate 70 mg PO QWEEK apixaban (Eliquis) 5 mg PO BID ascorbic acid (vitamin C) mg PO biotin 1 mg PO DAILY carvedilol 12.5 mg PO BID cholecalciferol (vitamin D3) 10 mcg PO DAILY cyclobenzaprine 5 mg PO TID PRN escitalopram oxalate 10 mg PO DAILY estradiol 0.01%(0.1mg/gram) grams vaginal NEEDED PRN famotidine 40 mg PO BEDTIME fluticasone propionate 50 mcg/actuation 1 spray intranasal DAILY folic acid 1 mg PO DAILY furosemide mg PO levothyroxine 88 mcg PO DAILY lorazepam 0.5 mg PO Q4H PRN losartan 25 mg PO DAILY methenamine hippurate 1 g PO BID methotrexate sodium 15 mg (6 x 2.5 mg) PO QWEEK ondansetron 4 mg PO NEEDED oxybutynin chloride ER 10 mg PO DAILY pantoprazole 40 mg PO DAILY potassium chloride ER 20 mEq PO BID prednisone 2.5 mg PO DAILY rituximab (Rituxan) 1,000 mg (100 mL) IV [id number] sennosides 8.6 mg PO BEDTIME HPI Comments Details: 69-year-old female with longstanding deforming RA returns for follow-up with her . She remains on methotrexate 15 mg weekly, folic acid daily, prednisone 2.5 mg daily and alendronate weekly. She states that she is doing reasonably well overall. She states that she gets intermittent pain across her knuckles about once a week. It does not last long. She states that she gets intermittent trickle in the back of her throat. She was evaluated by channel installer and was told that nothing significant was found. Has been mentions that she had recent PFTs and they were not so good. She has not followed up with a cable television program director to interpret them yet. Her RA is doing fairly well overall. She complains of generalized weakness. She was recently started on furosemide by her flow specialist for bilateral leg swelling. Over the last few months she developed 3 episodes of UTI, she had some delirium. They were promptly diagnosed and treated. She had a rib fracture recently when she bent offer. There was no significant trauma Initial history: This is a 67-year-old female with complex past medical history including standing deforming RA who presents as a new patient. Her previous assistant women's basketball coach left the practice. Her most recent assistant women's basketball coach was Dr. Davis. She stated that she was diagnosed with rheumatoid arthritis back in the 70s. She had an allergic reaction to gold. She was on Remicade, Humira, Enbrel, Orencia. All of which worked for a while then lost their efficacy. She was on Xeljanz for a few years then she developed drug-induced lupus erythematosus per patient. She had diffuse blistering skin rash and hair loss. At that time 6 medicines were discontinued including Xeljanz. Most recently she received rituximab towards the end of 2020 and another rituximab course in 09/2021. Per notes patient seen to have some improvement with rituximab Patient has a history of recurrent diverticulitis. Patient has severe deforming RA s/p multiple surgeries including right elbow replacement, bilateral hand tendon surgeries, right hand MCPs surgeries, right ankle fusion. She had been on prednisone as a monotherapy for years. She is currently on 10 mg daily. She gets recurrent iritis that she treats with topical steroid eyedrops. She states that she gets those recurrent iritis every few months. Patient has been using wheelchair since 2019 due to bilateral knee pain. States that her knees give out . She can walk 1/8of a mile per on a good day. She states that the majority of her joint pain over the last few years has been her knees. She received multiple intra-articular steroid injections last year with some relief. [facility] Medical History Anxiety and depression Lacunar infarction Diverticulitis Diverticulosis Endometriosis Schatzki's ring Drug-induced lupus erythematosus Encounter for testing for latent tuberculosis infection Afib Osteopenia of multiple sites Rheumatoid arthritis involving multiple sites with positive rheumatoid factor Vitamin D deficiency Primary osteoarthritis of both knees Surgical History H/O unilateral oophorectomy H/O cataract extraction History of bladder suspension procedure H/O elbow replacement H/O tubal ligation History of cholecystectomy History of ankle surgery H/O hand surgery Family History Mother Diabetes Sister Diabetes Pancreatic cancer Father Pancreatic cancer Seizures Social History Household Members: Spouse Alcohol intake: never Patient Tobacco Use Status: Never used Tobacco Current occupational status: disabled Female Reproductive History Menstrual Total pregnancies: 3 Number of Living Children: 3 Review of Systems Const Reports fatigue, Denies fever(s) and Reports weakness Eyes Reports no additional complaints Resp Denies pain with cough Musc Reports arthralgias, Denies joint swelling and Reports stiffness Neuro Reports weakness Endo Reports fatigue Physical Exam Vital Signs: Last Vital Signs Pulse 89 02/26/24 14:10 BP 142/98 H 02/26/24 14:10 Pulse Ox 98 02/26/24 14:10 Oxygen Delivery Method Room Air 02/26/24 14:10 Oxygen Flow Rate 0 02/26/24 14:10 BMI result Body Mass Index 27.9 Const General: cooperative, healthy appearing and comfortable Nutritional Appearance: overweight Orientation/consciousness: patient oriented x3 Limitations: ambulation with cane HEENT Head: Yes normocephalic and Yes atraumatic Mouth: moist mucous membranes Resp Effort & Inspection: normal respiratory effort and able to speak in complete sentences Cardio Rate: regular rate Rhythm: regular rhythm Skin General skin exam: no rashes or lesions noted Neuro General: patient oriented x3 Extrem Other: Extensive RA deformities and multiple surgical procedures Right elbow contracture s/p arthroplasty Right wrist contracture s/p surgery, barely any flexion or extension Bilateral ulnar deviation at the MCPs. Good radiation officer strength bilaterally No active synovitis today. Good radiation officer strength bilaterally Normal nailfold capillaroscopy Right ankle fusion no ankle swelling tenderness or warmth Left ankle without swelling tenderness or erythema bilateral fibular deviation of her toes No MTP tenderness Negative MTP squeeze test Assessment & Plan Assessment & Plan (1) Rheumatoid arthritis involving multiple sites with positive rheumatoid factor: Comment: dx in 1970s Gold--> allergic reaction HCQ ineffective MTX caused diarrhea and GI upset even when switched to SQ Remicade, Enbrel, Humira, all worked for sometime then lost their efficacy Orencia Celebrex not effective Xeljanz effective for a few years then DC due to DILE (is unclear we whether it was because Xeljanz as 5 other medicines were stopped) RTX 2 doses given end of 2020 & 09/2021. 08/2022,03/2023 effective, 1 dose 09/2023 Code(s): M05.79 - Rheumatoid arthritis with rheumatoid factor of multiple sites without organ or systems involvement Category: Medical Plan: This is a 69 year female with longstanding severe erosive RA s/p multiple surgical procedures who presents for follow-up Patient has tried and failed multiple DMARDs. Please see above. She is currently on rituximab infusions and methotrexate 15 mg weekly, prednisone 2.5 mg daily and folic acid daily. When prednisone was tapered off patient was having more achy joints as well as a mild episode of iritis that required steroid eyedrops. Now that she is on the prednisone 2.5 mg daily she has not had any significant joint pain or stiffness and no recurrence of iritis. I think it is not unreasonable to keep the 2.5 mg of prednisone daily likely we are dealing with mechanical and degenerative arthritis from her longstanding erosive RA. Continue current meds as prescribed Plan to repeat rituximab infusion, 1 g in March of 2024. Labs to be done at the infusion appointment Follow-up in 4 months (2) Osteopenia of multiple sites: Code(s): M85.89 - Other specified disorders of bone density and structure, multiple sites Category: Medical Plan: DEXA 01/2023 showed osteopenia with a high FRAX score. Continue with Fosamax 70 mg weekly Plan to repeat DEXA in the fall of 2024. (3) Cough: Code(s): R05.9 - Cough, unspecified Category: Medical Qualifiers: Cough type: subacute Qualified Code(s): R05.2 - Subacute cough Plan: Associated with a trickle I suspect some mild aspiration. She states that she was evaluated by channel installer and had an endoscopy and was told that nothing significant was found. Recently had PFTs, per they were not normal but she has not seen her cable television program director. Advised patient to send me the report of the PFTs. 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 Advised patient that she can get 2 vaccinations in 1 day. Hold methotrexate 1 dose after each vaccination Plan I spent 46 minutes reviewing patient's chart, evaluating patient, ordering diagnostic workup, counseling patient and documenting in the chart Coding Level of Care Code Est Pt Level 5 (11103) Complex EM visit Add On G2211 Diagnoses Rheumatoid arthritis involving multiple sites with positive rheumatoid factor M05.79 Osteopenia of multiple sites M85.89 Subacute cough R05.2 Cough type: subacute pattern finisher methotrexate user Z79.631 Immunization counseling Z71.85
[2024-02-26 14:10] VITALS: BP 142/98; PULSE 89; O2SAT 98; BMI 27.9
== END 2024-02-26 14:42 | disposition home or self-care (01) ==
LOC: HO.RHE 13:42
PROVIDERS: PCP Nurse Practitioner Family; Visit Provider Student in an Organized Health Care Education/Training Program
DX: M05.79 Rheumatoid arthritis with rheumatoid factor of multiple sites without organ or systems involvement (principal); M85.89 Other specified disorders of bone density and structure, multiple sites; R05.2 Subacute cough; Z79.631 Long term (current) use of antimetabolite agent; Z71.85 Encounter for immunization safety counseling
CPT/HCPCS: 99215; G2211

== ENCOUNTER → 2024-02-26 13:42 | Outpatient (BNVA) | payer MEDICARE, BC, SELFPAY | PROVIDERS: PCP Nurse Practitioner Family; Visit Provider Student in an Organized Health Care Education/Training Program | DX: M05.79 Rheumatoid arthritis with rheumatoid factor of multiple sites without organ or systems involvement (principal); Z71.85 Encounter for immunization safety counseling; M85.89 Other specified disorders of bone density and structure, multiple sites; R05.2 Subacute cough; Z79.631 Long term (current) use of antimetabolite agent | CPT/HCPCS: 99212 ==

== ENCOUNTER 2024-03-20 11:10 | Outpatient (AMB) | payer MEDICARE, BC, SELFPAY ==
[2024-03-20 11:19] VITALS: BP 186/87; PULSE 79; RESP 15; O2SAT 94
--- NOTE | 2024-03-20 11:19 | MHC.OFFVIS ---
Vital Signs 03/20/24 11:19 Height 5 ft 6 in BP 186/87 H Blood Pressure Location Rt brachial Position Sitting Respiration 15 Pulse 79 Pulse Source Pulse Oximeter Pulse Oximetry (%) 94 Oxygen Delivery Method Room Air Intake Visit Reasons: 4 weeks fu Allergies codeine Allergy (Mild, Verified 02/26/24 14:05) Paleness Gold Salts Allergy (Mild, Verified 02/26/24 14:05) Rash Sulfa (Sulfonamide Antibiotics) Allergy (Mild, Verified 02/26/24 14:05) Swelling HPI HPI 4 weeks fu: Details: 69-year-old female who presents today for 4 weeks follow-up. Patient received cervical trigger point injections last on 02/21/24. While in the office today, she reports improvement in her pain after receiving trigger point injections. She reports 80% relief for 4 weeks. She would like to get repeat cervical trigger point injections today. Past Procedures: 02/21/24: Cervical trigger point injections (left cervicalis, occipitalis, trapezius)- 80% relief for 4 weeks. 11/08/23: Cervical trigger point injections (left cervicalis, occipitalis, trapezius)- 50% ongoing pain relief 08/28/23: Bilateral C3-C4-C5 MB RFA-50% pain relief 06/20/23: Repeat Diagnostic Bilateral C3-C4-C5 MBBs-80% pain relief for 8 hours 05/01/23: Diagnostic Bilateral C3-C4-C5 MBBs-90% pain relief for 2 days PFSH Medical History Anxiety and depression Lacunar infarction Diverticulitis Diverticulosis Endometriosis Schatzki's ring Drug-induced lupus erythematosus Encounter for testing for latent tuberculosis infection Afib Osteopenia of multiple sites Rheumatoid arthritis involving multiple sites with positive rheumatoid factor Vitamin D deficiency Primary osteoarthritis of both knees Surgical History H/O unilateral oophorectomy H/O cataract extraction History of bladder suspension procedure H/O elbow replacement H/O tubal ligation History of cholecystectomy History of ankle surgery H/O hand surgery Family History Mother Diabetes Sister Diabetes Pancreatic cancer Father Pancreatic cancer Seizures Social History Household Members: Spouse Alcohol intake: never Patient Tobacco Use Status: Never used Tobacco Current occupational status: disabled Review of Systems Const All systems reviewed & are unremarkable except as noted in HPI and below Physical Exam Vital Signs: Last Vital Signs Pulse 79 03/20/24 11:19 Resp 15 03/20/24 11:19 BP 186/87 H 03/20/24 11:19 Pulse Ox 94 03/20/24 11:19 Oxygen Delivery Method Room Air 03/20/24 11:19 General: Appears afebrile. Alert and oriented. Mood and affect appropriate. Follows and participates in conversation appropriately. Respiratory effort is unlabored. Able to transition from sit to stand unassisted. Ambulates with bilaterally normal heel strike and toe off. Office Procedures Injection Trigger Point Multi Cervical trigger point injections (left cervicalis, occipitalis, trapezius) Pre-procedure diagnosis: Myofascial pain. Post-procedure diagnosis: Myofascial pain. Site and number of trigger points: Left cervicalis Left occipitalis? Left trapezius Solution: Total volume administered 10 ml (5 ml lidocaine 1% + 5 ml ropivacaine 0.25%). The procedure, its benefits, and its risks were explained to the patient and all questions were answered. Prior to the start of the procedure, a ?time out? was performed to confirm correct patient, procedure, and laterality. Trigger points were identified by manual palpation and marked. The skin was cleaned with Chloraprep. A 1.5 inch 25 G needle was used. Each of the trigger points were approximated and elevated in the direction away from the body. Dry needling then took place for five seconds. Approximately 0.5 ml to 1 ml of injectate was delivered to the trigger point followed by dry needling for five seconds. This process was repeated at each trigger point site. The patient tolerated the procedure well. The patient tolerated the procedure well, without complication. The patient denied any numbness, paresthesias, or weakness. Post-procedure vitals were recorded as part of the nursing discharge note in electronic medical record. Following a period of observation, the patient was discharged in stable condition with written discharge instructions. Trigger Point Multiple: 07983- Trigger point injection =/>3 Results Reviewed Results Reviewed: No imaging is available for review. Assessment & Plan Assessment & Plan (1) Myofascial pain syndrome, cervical: Code(s): M79.18 - Myalgia, other site Category: Medical Plan Patient is status post cervical trigger point injections (left cervicalis, occipitalis, trapezius). Patient tolerated procedure well and was discharged home in stable condition with discharge instructions. All questions were answered. We will follow-up in 1 month for repeat TPIs. Scribed for Dr. Ortiz by Yuli Estevez medical lab technologist, on 03/20/2024. I, Dr. Ortiz, have personally reviewed and agree with the information entered by the scribe. Coding Level of Care Code Procedure Only Diagnoses Myofascial pain syndrome, cervical M79.18 CPT Codes Details - Trigger Point Multiple: 11884- Trigger point injection =/>3 ([id number])
== END 2024-03-20 11:38 | disposition home or self-care (01) ==
PROVIDERS: PCP Nurse Practitioner Family; Visit Provider Internal Medicine
DX: M79.18 Myalgia, other site (principal)
CPT/HCPCS: 20553

== ENCOUNTER → 2024-03-20 11:10 | Outpatient (BNVA) | payer MEDICARE, BC, SELFPAY | PROVIDERS: PCP Nurse Practitioner Family; Visit Provider Internal Medicine | DX: M79.18 Myalgia, other site (principal) | CPT/HCPCS: 20553; J2795 ==

== ENCOUNTER 2024-05-01 08:28 | Outpatient (AMB) | payer MEDICARE, BC, SELFPAY ==
--- OUTSIDE RECORDS SUMMARY | 2024-05-01 08:38 | XMS_ITS | Clinical Summary ---
Author Organization Unknown Care Team Providers Care Architecture Faculty Member Name Role Phone ELDER , ERVIN SAM Unavailable Unavailable ADRYAN RN, ASHLEY Unavailable Unavailable JOSE ALBERTO RN, JACOB Unavailable Unavailmary RODRIGUEZ MANUAL WRITER, TAWANDA Unavailable Unavailable DEL CAM Unavailable Unavailable MAGALI RN, VICKI Unavailable Unavailable HI RN, ALISSON Unavailable Unavailmary GAINES RN, MARILU Unavailable Unavailable FLORA RN, BRUCE Unavailable Unavailable FRANNY RN, CED Unavailable Unavailable MANJINDER RN, BABAR Unavailable Unavailable CURET CH, KAITLYNN Unavailable Unavailable JADEN SEASONAL RECRUITER, FORTUNATO Unavailable Unavailable KAITY RN, VASYL Unavailable Unavailable RUMA RN, LOIS Unavailable Unavailable NATASHA VALERIO, CAITLIN Unavailable Unavailmary ANDERSON JR RN, RAFAEL Unavailable Unavailsonja MACIAS RN, JAHAIRA Unavailable Unavailable COLEMAN MULLER, RINA Unavailable Unavailable Payers Payer Name Policy Type Policy Number Effective Date Expira tion Date MEDICARE.NGS.HSP [id number] Problems Condition Name Condition Details Condition Category Status Onset Date Resolution Date Last Treatment Date Treating Clinician Comments DYSPHAGIA FOLLOWING CEREBRAL INFARCTION Active 11-03 00:00: 00 DYSPHAGIA, UNSPECIFIED Active 08-20 00:00: 00 UNSPECIFIED SEVERE PROTEIN-PK ISAI MALNUTRITION Active 08-20 00:00: 00 ADULT FAILURE TO THRIVE Active 08-20 00:00: 00 NEUROCOGNITI VE DISORDER WITH LEWY BODIES Active 08-20 00:00: 00 DEM IN OTH DIS CLASSD ELSWHR,UNSP SEV,W/O BEH/PSYCH/MO OD/ANX Active 08-20 00:00: 00 MAJOR DEPRESSIVE DISORDER, SINGLE EPISODE, UNSPECIFIED Active 08-20 00:00: 00 PAROXYSMAL ATRIAL FIBRILLATION Active 08-20 00:00: 00 RHEUMATOID ARTHRITIS WITH RHEUMATOID FACTOR, UNSPECIFIED Active 08-20 00:00: 00 OBSTRUCTIVE SLEEP APNEA (ADULT) (PEDIATRIC) Active 08-20 00:00: 00 GASTRO-ESOPH AGEAL REFLUX DISEASE WITHOUT ESOPHAGITIS Active 08-20 00:00: 00 OTHER REDUCED MOBILITY Active 08-20 00:00: 00 NEED FOR ASSISTANCE WITH PERSONAL CARE Active 08-20 00:00: 00 PERSONAL HISTORY OF URINARY (TRACT) INFECTIONS Active 08-20 00:00: 00 Allergies, Adverse Reactions, Alerts Allergy Name Allergy Type Status Severity Reaction(s) Onset Date Inactive Date Treating Clinician Comments CODEINE Propensity to adverse reactions Active 08-20 23:08: 38 FIORINAL-COD EINE #3 Propensity to adverse reactions Active 08-20 23:08: 23 GOLD SALTS Propensity to adverse reactions Active 08-20 23:09: 27 SULFA DERIVATIVES Propensity to adverse reactions Active 08-20 23:09: 13 Medications Ordered Medication Name Filled Medication Name Start Date Stop Date Current Medication? Ordering Clinician Indication Dosage Frequency Signature (SIG) Comments Components alendronate 70 mg tablet 12-06 00:00: 00 01-03 00:00 :00 No [id number] 2 tablet WEEKLY 2 tablet WEEKLY (route: oral) Med Classific ation: Endocrine atorvastati n 20 mg tablet 12-06 00:00: 00 08-20 00:00 :00 No [id number] 1 tablet DAILY 1 tablet DAILY (route: oral) Med Classific ation: Cardiovas cular Therapy Agents bupropion HCl SR 150 mg tablet,12 hr sustained-r elease 12-06 00:00: 00 01-03 00:00 :00 No [id number] 1 tablet 2 TIMES DAILY 1 tablet 2 TIMES DAILY (route: oral) Med Classific ation: Central Nervous System Agents carvedilol 12.5 mg tablet 12-06 00:00: 00 05-21 23:59 :00 No [id number] 1 tablet 2 TIMES DAILY 1 tablet 2 TIMES DAILY (route: oral) Med Classific ation: Cardiovas cular Therapy Agents fluoxetine 40 mg capsule 12-06 00:00: 08-20 00:00 :00 No [id number] 2 capsule DAILY 2 capsule DAILY (route: oral) Med Classific ation: Central Nervous System Agents levothyroxi ne 75 mcg tablet 12-06 00:00: 05-30 23:59 :00 No [id number] 1 tablet DAILY 1 tablet DAILY (route: oral) Med Classific ation: Endocrine ondansetron 4 mg disintegrat ing tablet 12-06 00:00: 01-03 00:00 :00 No [id number] 1 tablet EVERY 8 HOURS 1 tablet EVERY 8 HOURS (route: oral) Med Classific ation: Gastroint estinal Therapy Agents oxycodone 5 mg tablet 12-06 00:00: 03-02 23:59 :00 No [id number] 1 tablet EVERY 6 HOURS 1 tablet EVERY 6 HOURS (route: oral) Med Classific ation: Analgesic , Anti-infl ammatory or Antipyret ic Phosphorous Supplement 280 mg-160 mg-250 mg oral powder packet 12-06 00:00: 03-02 23:59 :00 No [id number] 1 powder in packet DAILY 1 powder in packet DAILY (route: oral) Med Classific ation: Electroly te Balance-N utritiona l Products prednisone 1 mg tablet 12-06 00:00: 05-21 23:59 :00 No [id number] 4 tablet DAILY 4 tablet DAILY (route: oral) Med Classific ation: Endocrine quetiapine 25 mg tablet 12-06 00:00: 08-20 00:00 :00 No [id number] 3 tablet BEDTIME 3 tablet BEDTIME (route: oral) Med Classific ation: Central Nervous System Agents solifenacin 10 mg tablet 12-06 00:00: 05-21 23:59 :00 No [id number] 1 tablet DAILY 1 tablet DAILY (route: oral) Med Classific ation: Genitouri nary Therapy Tylenol Arthritis Pain 650 mg tablet,exte nded release 8-10 00:00: 00 01-03 00:00 :00 No [id number] 2 tablet 3 TIMES DAILY 2 tablet 3 TIMES DAILY (route: oral) Med Classific ation: Analgesic , Anti-infl ammatory or Antipyret ic alendronate 70 mg tablet 01-02 00:00: 00 08-20 00:00 :00 No [id number] 1 tablet WEEKLY 1 tablet WEEKLY (route: oral) Med Classific ation: Endocrine bupropion HCl XL 150 mg 24 hr tablet, extended release 01-02 00:00: 00 08-20 00:00 :00 No [id number] 3 tablet DAILY 3 tablet DAILY (route: oral) Med Classific ation: Central Nervous System Agents multivitami n with minerals capsule 01-02 00:00: 00 08-20 00:00 :00 No [id number] 1 capsule DAILY 1 capsule DAILY (route: oral) Med Classific ation: Electroly te Balance-N utritiona l Products Tylenol Extra Strength 500 mg tablet 01-02 00:00: 08-20 00:00 :00 No [id number] 2 tablet EVERY 8 HOURS 2 tablet EVERY 8 HOURS (route: oral) Med Classific ation: Analgesic , Anti-infl ammatory or Antipyret ic Vitamin B-12 1,000 mcg tablet 01-02 00:00: 00 05-21 23:59 :00 No [id number] 1 tablet DAILY 1 tablet DAILY (route: oral) Med Classific ation: Electroly te Balance-N utritiona l Products Klor-Con M20 mEq tablet,exte nded release 15 00:00: 00 Yes [id number] SUPPLEMENT 1 tablet 2 TIMES DAILY 1 tablet 2 TIMES DAILY (route: oral) Med Classific ation: Electroly te Balance-N utritiona l Products Phosphorous Supplement 280 mg-160 mg-250 mg oral powder packet 16 00:00: 00 05-21 23:59 :00 No [id number] 1 powder in packet 2 TIMES DAILY 1 powder in packet 2 TIMES DAILY (route: oral) Med Classific ation: Electroly te Balance-N utritiona l Products Afluria Qd (36 mos up)(PF)60 mcg (15 mcg x4)/0.5 mL IM syringe 01-06 00:00: 00 01-06 23:59 :00 No [id number] 0.5 mL DIRECTED 0.5 mL DIRECTED (route: intramuscu lar) Med Classific ation: Biologica ls Eliquis 5 mg tablet 01-06 00:00: 00 Yes [id number] ANTICOAGULA NTS 1 tablet 2 TIMES DAILY 1 tablet 2 TIMES DAILY (route: oral) Med Classific ation: Hematolog ical Agents cefuroxime axetil 250 mg tablet 05-21 00:00: 00 05-23 23:59 :00 No [id number] 1 tablet 2 TIMES DAILY 1 tablet 2 TIMES DAILY (route: oral) Med Classific ation: Anti-Infe ctive Agents ondansetron HCl 4 mg tablet 05-21 00:00: 00 Yes [id number] NAUSEA/VOMI TING 1 tablet EVERY 8 HOURS 1 tablet EVERY 8 HOURS (route: oral) Med Classific ation: Gastroint estinal Therapy Agents Vitamin C 250 mg tablet 05-21 00:00: 00 08-20 00:00 :00 No [id number] 1 tablet 2 TIMES DAILY 1 tablet 2 TIMES DAILY (route: oral) Med Classific ation: Electroly te Balance-N utritiona l Products Cipro 250 mg tablet 05-30 00:00: 00 07-19 00:00 :00 No [id number] 1 tablet EVERY 12 HOURS 1 tablet EVERY 12 HOURS (route: oral) Med Classific ation: Anti-Infe ctive Agents levothyroxi ne 88 mcg capsule 05-30 00:00: 00 08-20 00:00 :00 No [id number] 1 capsule DAILY 1 capsule DAILY (route: oral) Med Classific ation: Endocrine Macrobid 100 mg capsule - 00:00: 00 07-19 00:00 :00 No [id number] 1 capsule 2 TIMES DAILY 1 capsule 2 TIMES DAILY (route: oral) Med Classific ation: Genitouri nary Therapy Keflex 500 mg capsule 07-20 00:00: 00 08-13 23:59 :00 No [id number] 1 capsule 4 TIMES DAILY 1 capsule 4 TIMES DAILY (route: oral) Med Classific ation: Anti-Infe ctive Agents Zofran 4 mg tablet 07-20 00:00: 00 08-20 00:00 :00 No [id number] 1 tablet EVERY 8 HOURS 1 tablet EVERY 8 HOURS (route: oral) Med Classific ation: Gastroint estinal Therapy Agents amoxicillin 875 mg-potassiu m clavulanate 125 mg tablet 08-10 00:00: 00 08-20 00:00 :00 No [id number] DIVERTICULI YITS 1 tablet EVERY 8 HOURS 1 tablet EVERY 8 HOURS (route: oral) Alternate Route: BY MOUTH. Med Classific ation: Anti-Infe ctive Agents Ativan 0.5 mg tablet 08-20 00:00: 00 Yes [id number] AGITATION/A NXIETY 0.5 mg EVERY 4 HOURS 0.5 mg EVERY 4 HOURS (route: oral) Med Classific ation: Central Nervous System Agents morphine 20 mg/5 mL (4 mg/mL) oral solution 08-20 00:00: 00 05-05 23:59 :00 No [id number] PAIN/SOB 5 mg HOURLY 5 mg HOURLY (route: oral) Med Classific ation: Analgesic , Anti-infl ammatory or Antipyret ic OXYGEN 08-26 00:00: 00 Yes [id number] SUPPLEMENT 2 Liter NEEDED 2 Liter NEEDED (route: Oxygen) Med Classific ation: Medical Oxygen levofloxaci n 500 mg tablet 08-26 00:00: 00 09-02 23:59 :00 No [id number] PNA 500 mg 2 TIMES DAILY 500 mg 2 TIMES DAILY (route: oral) Med Classific ation: Anti-Infe ctive Agents lidocaine 5 % topical patch 10-06 00:00: 00 Yes [id number] PAIN 1 adhesiv e patch, medicat ed DAILY 1 adhesive patch, medicated DAILY (route: topical) Med Classific ation: Dermatolo gical prednisone 10 mg tablet 10-18 00:00: 00 12-02 23:59 :00 No [id number] RA 30 mg DAILY 30 mg DAILY (route: oral) Med Classific ation: Endocrine MS Contin 15 mg tablet,exte nded release 10-25 00:00: 00 12-02 23:59 :00 No [id number] PAIN 15 mg 2 TIMES DAILY 15 mg 2 TIMES DAILY (route: oral) Med Classific ation: Analgesic , Anti-infl ammatory or Antipyret ic cephalexin 500 mg capsule 11-01 00:00: 00 11-08 23:59 :00 No [id number] UTI 500 mg 2 TIMES DAILY 500 mg 2 TIMES DAILY (route: oral) Med Classific ation: Anti-Infe ctive Agents melatonin 5 mg tablet 11-01 00:00: 00 Yes [id number] INSOMNIA 5 mg BEDTIME 5 mg BEDTIME (route: oral) Med Classific ation: Central Nervous System Agents carvedilol 12.5 mg tablet 10-31 00:00: 00 06-29 23:59 :00 No [id number] HYPERTENSIO N 12.5 mg 2 TIMES DAILY 12.5 mg 2 TIMES DAILY (route: oral) Med Classific ation: Cardiovas cular Therapy Agents fluconazole 150 mg tablet 11-17 00:00: 00 11-24 23:59 :00 No [id number] FUNGAL INFECTION 150 mg DAILY 150 mg DAILY (route: oral) Med Classific ation: Anti-Infe ctive Agents gabapentin 300 mg capsule 12-02 00:00: 00 05-05 23:59 :00 No [id number] PAIN 300 mg 3 TIMES DAILY 300 mg 3 TIMES DAILY (route: oral) Med Classific ation: Central Nervous System Agents MS Contin 15 mg tablet,exte nded release 12-02 00:00: 00 02-21 23:59 :00 No [id number] PAIN 30 mg 3 TIMES DAILY 30 mg 3 TIMES DAILY (route: oral) Med Classific ation: Analgesic , Anti-infl ammatory or Antipyret ic prednisone 20 mg tablet 8-06 00:00: 00 04-05 23:59 :00 No [id number] ARTHRITIS/I NFLAMMATION 20 mg DAILY 20 mg DAILY (route: oral) Med Classific ation: Endocrine MS Contin 15 mg tablet,exte nded release 2020-04 0- 00:00: 00 03-13 23:59 :00 No [id number] PAIN 15 mg 2 TIMES DAILY 15 mg 2 TIMES DAILY (route: oral) Med Classific ation: Analgesic , Anti-infl ammatory or Antipyret ic citalopram 10 mg tablet 2020-04 00:00: 00 Yes [id number] DEPRESSION 10 mg DAILY 10 mg DAILY (route: oral) Med Classific ation: Central Nervous System Agents MS Contin 15 mg tablet,exte nded release 2020-04 00:00: 00 Yes [id number] PAIN 15 mg 2 TIMES DAILY 15 mg 2 TIMES DAILY (route: oral) Med Classific ation: Analgesic , Anti-infl ammatory or Antipyret ic prednisone 5 mg tablet 2020-04 00:00: 00 06-29 23:59 :00 No [id number] PAIN/INFLAM MATION 5 mg DAILY 5 mg DAILY (route: oral) Med Classific ation: Endocrine morphine concentrate 100 mg/5 mL (20 mg/mL) oral solution 05-05 00:00: 00 Yes [id number] PAIN, SOB 10 mg HOURLY 10 mg HOURLY (route: oral) Med Classific ation: Analgesic , Anti-infl ammatory or Antipyret ic MS Contin 15 mg tablet,exte nded release 1- 00:00: 00 Yes [id number] PAIN 30 mg EVERY AM 30 mg EVERY AM (route: oral) Med Classific ation: Analgesic , Anti-infl ammatory or Antipyret ic carvedilol 12.5 mg tablet 3-03 00:00: 00 Yes [id number] HTN 12.5 mg 2 TIMES DAILY 12.5 mg 2 TIMES DAILY (route: oral) Med Classific ation: Cardiovas cular Therapy Agents prednisone 5 mg tablet 06-29 00:00: 00 Yes [id number] RA 10 mg DAILY 10 mg DAILY (route: oral) Med Classific ation: Endocrine Vesicare 10 mg tablet 06-29 00:00: 00 Yes [id number] BLADDER SPASM 10 mg DAILY 10 mg DAILY (route: oral) Med Classific ation: Genitouri nary Therapy Vital Signs Vital Name Observation Time Observation Value Commen ts Temperature 2021-07-03 13:09:00.000 97.9 [degF] Pulse 2021-07-03 13:09:00.000 71 /min Pulse 2021-06-20 09:51:00.000 75 /min O2 Saturation (%) 2021-07-03 13:09:00.000 95 % Respirations 2021-07-03 13:09:00.000 16 /min Respirations 2021-06-20 09:51:00.000 16 /min Systolic Blood Pressure 2021-07-06 12:36:00.000 145 mm [Hg] Systolic Blood Pressure 2021-07-03 13:09:00.000 160 mm [Hg] Systolic Blood Pressure 2021-06-20 09:51:00.000 132 mm [Hg] Diastolic Blood Pressure 2021-07-06 12:36:00.000 60 mm [Hg] Diastolic Blood Pressure 2021-07-03 13:09:00.000 82 mm [Hg] Diastolic Blood Pressure 2021-06-20 09:51:00.000 80 mm [Hg] Reason for Visit INDEPENDENT IN THE HOME Encounters Start Date/Time End Date/Time Encounter Type Admission Type Attending [facility] Care Department Encounter ID Discharge Date Discharge Status Discharge Condition Discharge Reason Percent Goals Met 2020-08-20 00:00:00 2021-07-06 00:00:00 Outpatient RECERTIFIC [facility] [id number] 2021-07-06 00:00:00 DISCHARGE TO HOME OR SELF CARE INDEPENDEN T IN THE HOME HH OR [facility] - D/C - AGENCY/ORG ANIZATION DECISION 100.00
[2024-05-01 09:05] VITALS: BP 168/91; PULSE 78; O2SAT 98; BMI 27.0
--- NOTE | 2024-05-01 09:05 | A.OFFVIS_ITS ---
Vital Signs 05/01/24 09:05 Height 5 ft 6 in Weight 167 lb BMI 27.0 BP 168/91 H Blood Pressure Location Lt brachial Position Sitting Pulse 78 Pulse Source Pulse Oximeter Pulse Oximetry (%) 98 Oxygen Delivery Method Room Air Intake Visit Reasons: Trigger Point Injection Intake Note: Pain today 12/06 Facility Planner Required: No Accompanied by: Self / Same As Patient Allergies codeine Allergy (Mild, Verified 05/01/24 09:06) Paleness Gold Salts Allergy (Mild, Verified 05/01/24 09:06) Rash Sulfa (Sulfonamide Antibiotics) Allergy (Mild, Verified 05/01/24 09:06) Swelling HPI HPI Trigger Point Injection: Details: Patient presents for scheduled procedure. Denies any recent cough, cold, infection, fever or other significant changes in medical history since last office visit. [facility] Medical History Anxiety and depression Lacunar infarction Diverticulitis Diverticulosis Endometriosis Schatzki's ring Drug-induced lupus erythematosus Encounter for testing for latent tuberculosis infection Afib Osteopenia of multiple sites Rheumatoid arthritis involving multiple sites with positive rheumatoid factor Vitamin D deficiency Primary osteoarthritis of both knees Surgical History H/O unilateral oophorectomy H/O cataract extraction History of bladder suspension procedure H/O elbow replacement H/O tubal ligation History of cholecystectomy History of ankle surgery H/O hand surgery Family History Mother Diabetes Sister Diabetes Pancreatic cancer Father Pancreatic cancer Seizures Social History Household Members: Spouse Alcohol intake: never Patient Tobacco Use Status: Never used Tobacco Current occupational status: disabled Physical Exam Vital Signs: Last Vital Signs Pulse 78 05/01/24 09:05 BP 168/91 H 05/01/24 09:05 Pulse Ox 98 05/01/24 09:05 Oxygen Delivery Method Room Air 05/01/24 09:05 BMI result Body Mass Index 27.0 Office Procedures Injection Trigger Point Multi Pre-procedure diagnosis: Myofascial pain. Post-procedure diagnosis: Myofascial pain. Site and number of trigger points: Left cervicalis Left occipitalis? Left trapezius Solution: Total volume administered 10 ml (5 ml lidocaine 1% + 5 ml ropivacaine 0.25%). The procedure, its benefits, and its risks were explained to the patient and all questions were answered. Prior to the start of the procedure, a ?time out? was performed to confirm correct patient, procedure, and laterality. Trigger points were identified by manual palpation and marked. The skin was cleaned with Chloraprep. A 1.5 inch 25 G needle was used. Each of the trigger points were approximated and elevated in the direction away from the body. Dry needling then took place for five seconds. Approximately 0.5 ml to 1 ml of injectate was delivered to the trigger point followed by dry needling for five seconds. This process was repeated at each trigger point site. The patient tolerated the procedure well. The patient tolerated the procedure well, without complication. The patient denied any numbness, paresthesias, or weakness. Post-procedure vitals were recorded as part of the nursing discharge note in electronic medical record. Following a period of observation, the patient was discharged in stable condition with written discharge instructions. Trigger Point Multiple: 92244- Trigger point injection =/>3 Assessment & Plan Assessment & Plan (1) Myofascial pain syndrome, cervical: Code(s): M79.18 - Myalgia, other site Category: Medical Plan Patient is status post left cervical TPIs. Patient tolerated procedure well and was discharged home in stable condition with discharge instructions. All questions were answered. Repeat as needed. Coding Level of Care Code Procedure Only Diagnoses Myofascial pain syndrome, cervical M79.18 CPT Codes Details - Trigger Point Multiple: 39740- Trigger point injection =/>3 ([id number])
== END 2024-05-01 09:07 | disposition home or self-care (01) ==
PROVIDERS: PCP Nurse Practitioner Family; Visit Provider Internal Medicine
DX: M79.18 Myalgia, other site (principal)
CPT/HCPCS: 20553

== ENCOUNTER → 2024-05-01 08:28 | Outpatient (BNVA) | payer MEDICARE, BC, SELFPAY | PROVIDERS: PCP Nurse Practitioner Family; Visit Provider Internal Medicine | DX: M79.18 Myalgia, other site (principal) | CPT/HCPCS: 20553; J2003; J2795 ==

== ENCOUNTER → 2024-05-29 09:11 | Outpatient (BNVA) | payer MEDICARE, BC, SELFPAY | PROVIDERS: PCP Nurse Practitioner Family; Visit Provider Internal Medicine | DX: M79.18 Myalgia, other site (principal) | CPT/HCPCS: 20553 ==

== ENCOUNTER 2024-06-26 09:00 | Outpatient (AMB) | payer MEDICARE, BC, SELFPAY ==
--- NOTE | 2024-06-26 09:12 | A.OFFVIS_ITS ---
Vital Signs 06/26/24 09:13 Height 5 ft 6 in Weight 167 lb BMI 27.0 BP 180/81 H Blood Pressure Location Lt brachial Position Sitting Respiration 16 Pulse 85 Pulse Source Pulse Oximeter Pulse Oximetry (%) 95 Oxygen Delivery Method Room Air Intake Visit Reasons: 1 MONTH FOLLOW UP Case Coordinator Required: No Artillery Or Naval Gunfire Observer: Artillery Or Naval Gunfire Observer Present Accompanied by: Julito Tirado Allergies codeine Allergy (Mild, Verified 06/26/24 09:14) Paleness Gold Salts Allergy (Mild, Verified 06/26/24 09:14) Rash Sulfa (Sulfonamide Antibiotics) Allergy (Mild, Verified 06/26/24 09:14) Swelling Medication List - Last Reconciled 06/26/24 by Shayy Antunez LPN alendronate 70 mg PO QWEEK apixaban (Eliquis) 5 mg PO BID ascorbic acid (vitamin C) mg PO biotin 1 mg PO DAILY carvedilol 12.5 mg PO BID cholecalciferol (vitamin D3) 10 mcg PO DAILY cyclobenzaprine 5 mg PO TID PRN escitalopram oxalate 10 mg PO DAILY estradiol 0.01%(0.1mg/gram) grams vaginal NEEDED PRN famotidine 40 mg PO BEDTIME fluticasone propionate 50 mcg/actuation 1 spray intranasal DAILY folic acid 1 mg PO DAILY furosemide mg PO levothyroxine 88 mcg PO DAILY lorazepam 0.5 mg PO Q4H PRN losartan 25 mg PO DAILY methenamine hippurate 1 g PO BID methotrexate sodium 15 mg (6 x 2.5 mg) PO QWEEK ondansetron 4 mg PO NEEDED oxybutynin chloride ER 10 mg PO DAILY pantoprazole 40 mg PO DAILY potassium chloride ER 20 mEq PO BID prednisone 2.5 mg PO DAILY rituximab (Rituxan) 1,000 mg (100 mL) IV [id number] sennosides 8.6 mg PO BEDTIME HPI HPI 1 MONTH FOLLOW UP: Details: History of Present Illness The patient is a 69-year-old female presenting with a request for repeat trigger point injections to manage myofascial pain. She had previously undergone a series of trigger point injections a month ago that resulted in significant pain relief, particularly across the shoulders. However, three weeks ago, she noticed a sensitive area upon touch. Despite this, she reports considerable pain reduction and improved shoulder mobility. The injections primarily targeted the left cervical occipitalis and trapezius muscles, yielding a beneficial impact on her chronic cervical myofascial pain. Pain Description - Onset: Chronic myofascial pain with acute exacerbation at injection site three weeks ago. - Quality: Sensitive to touch at infection site. - Primary Location: Cervical menisoxipitalis and trapezius muscles. - Exacerbating Factors: Palpation at the infected area. - Relieving Factors: Previous trigger point injections. - Interference: Pain interferes with shoulder function before treatment. Pain Management - Affect: Patient wants the pain to resolve completely. - Analgesia: Previous injections provided significant relief; awaiting repeat injections. - Adverse Effects: Infection at the site of previous injections. - Activities of Daily Living: Improved shoulder mobility post-injections. - Aberrant Drug Related Behaviors: None reported or observed. Injection Trigger Point Multi Pre-procedure diagnosis: Myofascial pain. Post-procedure diagnosis: Myofascial pain. Site and number of trigger points: Left cervicalis Left occipitalis? Left trapezius Solution: Total volume administered 10 ml (ropivacaine 0.25%). The procedure, its benefits, and its risks were explained to the patient and all questions were answered. Prior to the start of the procedure, a ?time out? was performed to confirm correct patient, procedure, and laterality. Trigger points were identified by manual palpation and marked. The skin was cleaned with Chloraprep. A 1.5 inch 25 G needle was used. Each of the trigger points were approximated and elevated in the direction away from the body. Dry needling then took place for five seconds. Approximately 0.5 ml to 1 ml of injectate was delivered to the trigger point followed by dry needling for five seconds. This process was repeated at each trigger point site. The patient tolerated the procedure well. The patient tolerated the procedure well, without complication. The patient denied any numbness, paresthesias, or weakness. Post-procedure vitals were recorded as part of the nursing discharge note in electronic medical record. Following a period of observation, the patient was discharged in stable condition with written discharge instructions. Trigger Point Multiple: 97038- Trigger point injection =/>3 PFSH Medical History Anxiety and depression Lacunar infarction Diverticulitis Diverticulosis Endometriosis Schatzki's ring Drug-induced lupus erythematosus Encounter for testing for latent tuberculosis infection Afib Osteopenia of multiple sites Rheumatoid arthritis involving multiple sites with positive rheumatoid factor Vitamin D deficiency Primary osteoarthritis of both knees Surgical History H/O unilateral oophorectomy H/O cataract extraction History of bladder suspension procedure H/O elbow replacement H/O tubal ligation History of cholecystectomy History of ankle surgery H/O hand surgery Family History Mother Diabetes Sister Diabetes Pancreatic cancer Father Pancreatic cancer Seizures Social History Household Members: Spouse Alcohol intake: never Patient Tobacco Use Status: Never used Tobacco Current occupational status: disabled Physical Exam Vital Signs: Last Vital Signs Pulse 85 06/26/24 09:13 Resp 16 06/26/24 09:13 BP 180/81 H 06/26/24 09:13 Pulse Ox 95 06/26/24 09:13 Oxygen Delivery Method Room Air 06/26/24 09:13 BMI result Body Mass Index 27.0 Assessment & Plan Assessment & Plan (1) Myofascial pain syndrome, cervical: Code(s): M79.18 - Myalgia, other site Category: Medical Plan Plan The patient will receive repeat trigger point injections to the specific cervical muscles as part of an ongoing treatment strategy for myofascial pain. Patient was informed and verbally consented to the use of an ambient scribe for clinic note documentation during this visit. Discussion Notes During our conversation, we discussed the continuation of trigger point injections as they have previously provided significant pain relief to the patient. We reviewed the risks and benefits of this treatment, and ensured patient understanding and agreement. Follow-up care and monitoring were emphasized, with a plan to return in one month for reassessment. Patient Instructions - Return to the clinic in one month for follow-up and additional injections if necessary. Coding Level of Care Code Procedure Only Diagnoses Myofascial pain syndrome, cervical M79.18
[2024-06-26 09:13] VITALS: BP 180/81; PULSE 85; RESP 16; O2SAT 95; BMI 27.0
--- OUTSIDE RECORDS SUMMARY | 2024-06-26 09:26 | XMS_ITS | Encounter Summary ---
Author Organization [facility] Address [address] [place] [address] Care Team Providers Care Tactical Intelligence Officer Name Role Phone Charly Saxena Primary Care Provider [phone] Cheryl Calderon MD Primary Care Provider [phone] Encounter Details Date Type Department Care Team (Late st Contact Info) Description 05/25/2013 Orders Only [facility] [address] [place] [phone] Abel Fierro MD [address] [place] [address] Social History Tobacco Use Types Packs/Day Years Used Date Smoking Tobacco: Never Smokeless Tobacco: Never Alcohol Use Standard Drinks/Week Comments Yes 0 (1 standard drink = 0.6 oz pur e alcohol) occ Comments No Sex and Gender Information Value Date Recorded Sex Assigned at Not on file Legal Sex Female 8:11 PM EDT Gender Identity Not on file Sexual Orientation Not on file Occupation Industry Job Start Date Job End Date Not on file Not on file Not on file Not on file documented as of this encounter Plan of Treatment Not on file documented as of this encounter Procedures * Due to [place] state law, this organization might not be sharing negative HIV tests. Procedure Name Priority Date/Time Associated Diagnosis Comments CBC INCLUDES DIFFERENTIAL AND PLATELET COUNT Routine 05/25/2013 2:20 PM EST Rheumatoid arthritis (HCC) ALANINE AMINOTRANSFERASE (ALT), SERUM Routine 05/25/2013 2:20 PM EST Rheumatoid arthritis (HCC) ASPARTATE AMINOTRANSFERASE (AST), SERUM Routine 05/25/2013 2:20 PM EST Rheumatoid arthritis (HCC) CREATININE WITH GLOMERULAR FILTRATION RATE, ESTIMATED (EGFR) Routine 05/25/2013 2:20 PM EST Rheumatoid arthritis (HCC) documented in this encounter Results * Due to [place] state law, this organization might not be sharing negative HIV tests. * CREATININE WITH GLOMERULAR FILTRATION RATE, ESTIMATED (EGFR) (05/25/2013 2:20 PM EST) Creatinine 0.90 0.50 - 1.05 mg/dL [facility] Comment: {CREATININE {[id number]) For patients >49 years of age, the reference limit for Creatinine is approximately 13% higher for people identified as -Brazilian. GFR 70 > OR = 60 mL/min/1. 73m2 [facility] Comment:{eGFR NON-AFR. AMERI CAN {[id number]) GFR () 82 > OR = 60 mL/min/1. 73m2 [facility] Comment:{eGFR AMERIC AN {[id number]) 05/25/2013 2:20 PM EST 05/25/2013 6:51 PM EST Narrative [facility] - 05/25/2013 10:06 PM EST Please note that this estimated GFR does not include an adjustment for the patient's height or weight, and can therefore, be viewed as reliable only for patients with heights between 60 and 72 . More precise quantification using a 24-hour urine sample or height-based algorithm is recommended for patients outside of this range of height and for those individuals with more precise needs for GFR calculation. Resulting Agency Comment [id number] us Abel Fierro MD LAB SAME DAY RESULT Final Resul t [facility] [address] [place] [address] * (ABNORMAL) CBC INCLUDES DIFFERENTIAL AND PLATELET COUNT (05/25/2013 2:20 PM EST) WBC 14.5(H) 3.8 - 10.8 Thousand/ uL [facility] Comment:{WHITE BLOOD CELL CO UNT {[id number]) RBC 5.63(H) 3.80 - 5.10 Million/u L [facility] Comment:{RED BLOOD CELL COUN T {[id number]) Hemoglobin 14.6 11.7 - 15.5 g/dL [facility] Comment:{HEMOGLOBIN {[id number]) Hematocrit 46.7(H) 35.0 - 45.0 % [facility] Comment:{HEMATOCRIT {[id number]) MCV 82.8 80.0 - 100.0 fL [facility] Comment:{MCV {[id number]) MCH 26.0(L) 27.0 - 33.0 pg [facility] Comment:{MCH {[id number]) MCHC 31.4(L) 32.0 - 36.0 g/dL [facility] Comment:{MCHC {[id number]) RDW 15.0 11.0 - 15.0 % [facility] Comment:{RDW {[id number]) PLT 395 140 - 400 Thousand/ uL [facility] Comment:{PLATELET COUNT {[id number]) MPV 7.4(L) 7.5 - 11.5 fL [facility] Comment:{MPV {[id number]) Neutrophils # 55768(H) 1500 - 7800 cells/uL [facility] Comment:{ABSOLUTE NEUTROPHIL S {[id number]) Lymphocytes # 1291 850 - 3900 cells/uL [facility] Comment:{ABSOLUTE LYMPHOCYTE S {[id number]) Monocytes # 595 200 - 950 cells/uL [facility] Comment:{ABSOLUTE MONOCYTES {[id number]) Eosinophils # 102 15 - 500 cells/uL [facility] Comment:{ABSOLUTE EOSINOPHIL S {[id number]) Basophils # 29 0 - 200 cells/uL [facility] Comment:{ABSOLUTE BASOPHILS {[id number]) Neutrophils % 86.1 % [facility] Comment:{NEUTROPHILS {[id number]) Lymphocytes % 8.9 % [facility] Comment:{LYMPHOCYTES {[id number]) Monocytes % 4.1 % [facility] Comment:{MONOCYTES {[id number]) Eosinophils % 0.7 % [facility] Comment:{EOSINOPHILS {[id number]) Basophils % 0.2 % [facility] Comment:{BASOPHILS {[id number]) 05/25/2013 2:20 PM EST 05/25/2013 6:51 PM EST Narrative Resulting Agency Comment [id number] us Abel Fierro MD LAB SAME DAY RESULT Final Resul t Performing Organization Address City/[facility] Co de Phone Number [facility] [address] [place] [address] * ALANINE AMINOTRANSFERASE (ALT), SERUM (05/25/2013 2:20 PM EST) ALT (SGPT) 21 6 - 29 U/L [facility] Comment:{ALT {[id number]) 05/25/2013 2:20 PM EST 05/25/2013 6:51 PM EST Narrative Resulting Agency Comment [id number] us Abel Fierro MD LAB SAME DAY RESULT Final Resul t Performing Organization Address [facility] de Phone Number [facility] [address] [place] [address] * ASPARTATE AMINOTRANSFERASE (AST), SERUM (05/25/2013 2:20 PM EST) AST (SGOT) 21 10 - 35 U/L [facility] Comment:{AST {[id number]) 05/25/2013 2:20 PM EST 05/25/2013 6:51 PM EST Narrative Resulting Agency Comment [id number] Abel Fierro MD LAB SAME DAY RESULT Final Resul t Performing Organization Address [facility] de Phone Number [facility] [address] [place] [address] documented in this encounter Visit Diagnoses Diagnosis Rheumatoid arthritis(714.0) Rheumatoid arthritis documented in this encounter Care Teams Tactical Intelligence Officer Relationship Specialty Start Date End Date Charly Saxena [facility] [address] [place] [address] PCP - General Internal Medicine 05/25/13 07/16/17 Cheryl Calderon MD [facility] [address] [place] [address] PCP - General Internal Medicine 07/17/17 documented as of this encounter
--- OUTSIDE RECORDS SUMMARY | 2024-06-26 09:26 | XMS_ITS | Encounter Summary ---
Author Organization [facility] Address [phone] [facility] [place] [address] Care Team Providers Care Caser In Name Role Phone Unavailable Primary Care Provider Unavailabl e Encounter Details Date Type Department Care Team (Late st Contact Info) Description 10/09/2011 Hospital Encounter [facility],Outside Imaging [address], [place] [id number] System, Provider Not In, [place] [address] Social History Tobacco Use Types Packs/Day Years Used Date Smoking Tobacco: Never Smokeless Tobacco: Never Alcohol Use Standard Drinks/Week Comments Not Currently 0 (1 standard drink = 0.6 oz pur e alcohol) Home Health Assessment: Transportation Answer Date Recorded Lack of Transportation (Medical) No 05/14/2024 Lack of Transportation (Non-Medical) No 05/14/2024 Patient Unable or Declines to Respond No 05/14/2024 Child or Family Care Answer Date Record [...] got money to buy more. Never True 05/08/2024 Within the past 6 months the food we bought just didn't last and we didn't have enough money to get more. Never True Residential Stability Answer Date Recor ded What is your housing situation today? I have jo sing 05/08/2024 How many times have you move d in the past 12 months? Zero (I did not move) 05/08/2024 Paying for Meds Answer Date Recorded Do you have trouble paying for medicines? No 05/08/2024 Paying Utility Bills Answer Date Record ed Do you have trouble paying your heating or elect ricity bill? No 05/08/2024 Transportation Answer Date Recorded Has the lack of transportati on kept you from medical appointments or from getting medications? No 05/08/2024 Unemployment Answer Date Recorded Are you currently unemployed or working on a part-time or temporary basis, and looking for work? No 09/26/2020 Digital Access Answer Date Recorded No 05/08/2024 Yes 05/08/2024 Do you have reliable internet access at home? Ye s 05/08/2024 Do you have a device (e.g., phone, tablet, computer) with a working camera? Yes 05/08/2024 Intimate Partner Violence Answer Date R ecorded Are you denied basic needs s uch as food, clothing, or medical care? No 05/27/2024 In the past 12 months have y ou been in a relationship with a person who hurts, threatens, or tries to control you? No 05/27/2024 Are you denied basic needs s uch as food, clothing, or medical care? No 05/27/2024 In the past 12 months have y ou been in a relationship with a person who hurts, threatens, or tries to control you? No 05/27/2024 Sex and Gender Information Value Date Recorded Sex Assigned at Female 08/18/2020 10:48 PM EDT Gender Identity Female 08/18/2020 10:48 PM EDT Sexual Orientation Straight 09/27/2020 4: 02 PM EDT documented as of this encounter Plan of Treatment Upcoming Encounters Date Type Department Care Team (Late st Contact Info) Description 06/06/2024 Procedure Pass [facility] [address] [place] [address] 06/26/2024 2:00 PM EST [facility] [address] [place] [phone] Miya Monte, POULTRY PICKING MACHINE TENDER [address] [place] [address] 06/30/2024 1:15 PM EST [facility] [address] [place] [phone] Miya Monte, POULTRY PICKING MACHINE TENDER [address] [place] [address] 07/01/2024 2:30 PM EST Office Visit [facility] [address] [place] [id number] Jose Thakur MD [address] [place] [address] 07/02/2024 2:15 AM EST [facility] [address] [place] [phone] Miya Monte, POULTRY PICKING MACHINE TENDER [address] [place] [address] 07/07/2024 3:00 AM EDT Home Care Visit [facility] [address] [place] [phone] Miya Monte, POULTRY PICKING MACHINE TENDER [address] [place] [address] 07/09/2024 12:45 AM EDT [facility] [address] [place] [phone] Merly Matos, PT [address] [place] [address] 07/30/2024 3:30 PM EDT Office Visit [address] [place] [address] Keren Poon CNP [address] [place] [phone] 09/18/2024 2:30 PM EDT Office Visit [facility] [address] [place] [address] Dana Rucker, CLIENT CUSTOMER MANAGER [address] [address] 11/26/2024 3:30 PM EDT Office Visit [address] [place] [address] Keren Poon CNP [address] [place] [phone] 12/11/2024 2:00 PM EDT Appointment [facility], [address] [address] Keren Poon CNP [address] [place] [address] 06/03/2025 2:00 PM EST Office Visit [address] [place] [address] Keren Poon CNP [address] [place] [address] documented as of this encounter Procedures Procedure Name Priority Date/Time Associated Diagnosis Comments BI MAMMOGRAM OUTSIDE (NO INTERPRETATION) Routine 10/09/2011 12:00 AM EDT documented in this encounter Results * Mammogram Outside (No Interpretation) (10/09/2011 12:00 AM EDT) Narrative SYSTEMGENERATED, DOCUMENTATION - 07/14/2021 1:06 PM EDT This study is for PACS storage only and not for interpretation. Provider Not In System PhD IMG OUTSIDE I MAGING W/OUT INTERPRETATION documented in this encounter Visit Diagnoses Not [...] CDiff-Risk 04/10/2024 04/10/2024 04/10/2024 7:25 AM EST documented as of this encounter Additional Source Comments The information contained in this document represents components of the legal health record. It is not the complete legal health record.[facility]
--- OUTSIDE RECORDS SUMMARY | 2024-06-26 09:26 | XMS_ITS | Encounter Summary ---
Author Organization [facility] Address [address] [place] [address] Care Team Providers Care Manufacturing Test Engineer Name Role Phone Alberto Pacheco Primary Care Provider [phone] Charly Saxena Primary Care Provider [phone] Cheryl Calderon MD Primary Care Provider Encounter Details Date Type Department Care Team (Late st Contact Info) Description 08/05/2012 Orders Only [facility] Rheumatology [address] [place] [address] Abel Fierro MD [address] [place] [address] Social History Tobacco Use Types Packs/Day Years [...] of this encounter Procedures * Due to [place] state law, this organization might not be sharing negative HIV tests. Procedure Name Priority Date/Time Associated Diagnosis Comments CBC INCLUDES DIFFERENTIAL AND PLATELET COUNT Routine 08/05/2012 12:53 PM EDT Rheumatoid arthritis (HCC) ALANINE AMINOTRANSFERASE (ALT), SERUM Routine 08/05/2012 12:53 PM EDT Rheumatoid arthritis (HCC) ASPARTATE AMINOTRANSFERASE (AST), SERUM Routine 08/05/2012 12:53 PM EDT Rheumatoid arthritis (HCC) CREATININE WITH GLOMERULAR FILTRATION RATE, ESTIMATED (EGFR) Routine 08/05/2012 12:53 PM EDT Rheumatoid arthritis (HCC) documented in this encounter Results * Due to [place] state law, this organization might not be sharing negative HIV tests. * CREATININE WITH GLOMERULAR FILTRATION RATE, ESTIMATED (EGFR) (08/05/2012 12:53 PM EDT) Creatinine 0.80 0.50 - 1.05 mg/dL [facility] Comment: {CREATININE {[id number]) For patients >49 years of age, the reference limit for Creatinine is approximately 13% higher for people identified as -Chinese. GFR 82 > OR = 60 mL/min/1. 73m2 [facility] Comment:{eGFR NON-AFR. AMERI CAN {[id number]) GFR () 95 > OR = 60 mL/min/1. 73m2 [facility] Comment:{eGFR AMERIC AN {[id number]) 08/05/2012 12:5 3 PM EDT 08/05/2012 4:46 PM EDT Narrative [facility] - 08/05/2012 8:08 PM EDT Please note that this estimated GFR does [...] needs for GFR calculation. Resulting Agency Comment [id number] us Abel Fierro MD LAB SAME DAY RESULT Final Resul t [facility] [address] [place] [address] * (ABNORMAL) CBC INCLUDES DIFFERENTIAL AND PLATELET COUNT (08/05/2012 12:53 PM EDT) WBC 7.8 3.8 - 10.8 Thousand/ uL [facility] Comment:{WHITE BLOOD CELL CO UNT {[id number]) RBC 5.22(H) 3.80 - 5.10 Million/u L [facility] Comment:{RED BLOOD CELL COUN T {[id number]) Hemoglobin 14.0 11.7 - 15.5 g/dL [facility] Comment:{HEMOGLOBIN {[id number]) Hematocrit 44.8 35.0 - 45.0 % [facility] Comment:{HEMATOCRIT {[id number]) MCV 85.8 80.0 - 100.0 fL [facility] Comment:{MCV {[id number]) MCH 26.9(L) 27.0 - 33.0 pg [facility] Comment:{MCH {[id number]) MCHC 31.4(L) 32.0 - 36.0 g/dL [facility] Comment:{MCHC {[id number]) RDW 15.9(H) 11.0 - 15.0 % [facility] Comment:{RDW {[id number]) PLT 305 140 - 400 Thousand/ uL [facility] Comment:{PLATELET COUNT {[id number]) MPV 8.0 7.5 - 11.5 fL [facility] Comment:{MPV {[id number]) Neutrophils # 3237 1500 - 7800 cells/uL [facility] Comment:{ABSOLUTE NEUTROPHIL S {[id number]) Lymphocytes # 3229 850 - 3900 cells/uL [facility] Comment:{ABSOLUTE LYMPHOCYTE S {[id number]) Monocytes # 1014(H) 200 - 950 cells/uL [facility] Comment:{ABSOLUTE MONOCYTES {[id number]) Eosinophils # 273 15 - 500 cells/uL [facility] Comment:{ABSOLUTE EOSINOPHIL S {[id number]) Basophils # 47 0 - 200 cells/uL [facility] Comment:{ABSOLUTE BASOPHILS {[id number]) Neutrophils % 41.5 % [facility] Comment:{NEUTROPHILS {[id number]) Lymphocytes % 41.4 % [facility] Comment:{LYMPHOCYTES {[id number]) Monocytes % 13.0 % [facility] Comment:{MONOCYTES {[id number]) Eosinophils % 3.5 % [facility] Comment:{EOSINOPHILS {[id number]) Basophils % 0.6 % [facility] Comment:{BASOPHILS {[id number]) 08/05/2012 12:5 3 PM EDT 08/05/2012 4:46 PM EDT Narrative Resulting Agency Comment [id number] us Abel Fierro MD LAB SAME DAY RESULT Final Resul t Performing Organization Address City/[facility] Co de Phone Number [facility] [address] [place] [address] * ALANINE AMINOTRANSFERASE (ALT), SERUM (08/05/2012 12:53 PM EDT) ALT (SGPT) 18 6 - 40 U/L [facility] Comment:{ALT {[id number]) 08/05/2012 12:5 3 PM EDT 08/05/2012 4:46 PM EDT Narrative Resulting Agency Comment [id number] us Abel Fierro MD LAB SAME DAY RESULT Final Resul t Performing Organization Address [facility] Co de Phone Number [facility] [address] [place] [address] * ASPARTATE AMINOTRANSFERASE (AST), SERUM (08/05/2012 12:53 PM EDT) AST (SGOT) 17 10 - 35 U/L [facility] Comment:{AST {[id number]) 08/05/2012 12:5 3 PM EDT 08/05/2012 4:46 PM EDT Narrative Resulting Agency Comment [id number] us Abel Fierro MD LAB SAME DAY RESULT Final Resul t Performing Organization Address City/[facility] Co de Phone Number [facility] [address] [place] [address] documented in this encounter Visit Diagnoses Diagnosis Rheumatoid arthritis(714.0) Rheumatoid arthritis documented in this encounter Care Teams Manufacturing Test Engineer Relationship Specialty Start Date End Date Alberto Pacheco [address] [place] [address] PCP - General 07/19/08 05/24/13 Charly Saxena [facility] [place] [address] PCP - General Internal Medicine 05/25/13 07/16/17 Cheryl Calderon MD [facility] [address] [place] [address] PCP - General Internal Medicine 07/17/17 documented as of this encounter
--- OUTSIDE RECORDS SUMMARY | 2024-06-26 09:26 | XMS_ITS | Encounter Summary ---
Author Organization [facility] Address [phone] [facility] [place] [address] Care Team Providers Care Junior Sales Representative Name Role Phone Cash Fernandes MD Unavailable [phone] Seven Menchaca MD Unavailable Chavo Jack MD Primary Care Provider Keren Poon [facility] Primary Care Provid er Chavo Jack MD Unavailable Willi Wells MD Unavailable Jose Thakur MD Unavailable [phone] Dana Rucker EDUCATION INSTRUCTOR Unavailable [phone] Jonathan Alvarez MD Unavailable [phone] Anival Borja MD Unavailable [phone] Lyndsay Reynoso EDUCATION INSTRUCTOR Unavailable Gutierrez Pittman MD Unavailable [phone] Encounter Details Date Type Department Care Team (Late st Contact Info) Description 01/08/2023 Procedure Pass [facility] Endoscopy Admitting Dept Virtual Department [address] [place] [address] Social History Tobacco Use Types Packs/Day Years Used Date Smoking Tobacco: Never Smokeless Tobacco: Never Alcohol Use Standard Drinks/Week Comments Not Currently 0 (1 standard drink = 0.6 oz pur e alcohol) Child or Family Care Answer Date Record [...] got money to buy more. Never True 09/26/2020 Within the past 6 months the food we bought just didn't last and we didn't have enough money to get more. Never True Residential Stability Answer Date Recor ded What is your housing situation today? I have jo sing 09/26/2020 How many times have you move d in the past 12 months? Zero (I did not move) 09/26/2020 06 Are you worried that in t he next 2 months, you may not have your own housing to live in? No 09/26/2020 Paying for Meds Answer Date Recorded Do you have trouble paying for medicines? No 09/26/2020 Paying Utility Bills Answer Date Record ed Do you have trouble paying your heating or elect ricity bill? No 09/26/2020 Transportation Answer Date Recorded Has the lack of transportati on kept you from medical appointments or from getting medications? No 09/26/2020 Unemployment Answer Date Recorded Are you currently unemployed or working on a part-time or temporary basis, and looking for work? No 09/26/2020 Digital Access Answer Date Recorded No 09/18/2022 No 09/18/2022 Reliable internet access at home? Not on file 09/18/2022 Device with a working camera? Not on file Sex and Gender Information Value Date Recorded Sex Assigned at Female 08/18/2020 10:48 PM EDT Gender Identity Female 08/18/2020 10:48 PM EDT Sexual Orientation Straight 09/27/2020 4: 02 PM EDT documented as of this encounter Plan of Treatment Upcoming Encounters Date Type Department Care Team (Late st Contact Info) Description 06/06/2024 Procedure Pass [facility], [facility]- [address] [address] 06/26/2024 2:00 PM EST Home Care Visit [facility] [address] [place] [phone] Miya Monte, [address] [address] [email or web address] 06/30/2024 1:15 PM EST [facility] [address] [place] [phone] Miya Monte, [address] [address] [email or web address] 07/01/2024 2:30 PM EST Office Visit [facility], Allergy [facility] Critical Care Medicine [address] [place] [address] Jose Thakur MD [address] [place] [address] [email or web address] 07/02/2024 2:15 AM EST [facility] [address] [place] [address] Miya Monte, [address] [address] [email or web address] 07/07/2024 3:00 AM EDT [facility] [address] [place] [phone] Miya Monte, [address] [address] [email or web address] 07/09/2024 12:45 AM EDT Home Care Visit [facility] [address] [place] [address] Merly Matos, PT [address] [place] [address] 07/30/2024 3:30 PM EDT Office Visit [address] [place], [place] [address] Keren Poon, ORI [address] [address] 09/18/2024 2:30 PM EDT Office Visit [facility] Infectious Diseases [address] [place] [address] Dana Rucker, EDUCATION INSTRUCTOR [address] [address] 11/26/2024 3:30 PM EDT Office Visit [address] [place], [place] [address] Keren Poon, ORI [address] [place] [address] 12/11/2024 2:00 PM EDT Appointment [facility] [address] [place] [address] Keren Poon, ORI [address] [address] 06/03/2025 2:00 PM EST Office Visit [address] [place], [place] [address] Keren Poon, ORI [address] [address] [email or web address] documented as of this encounter Visit Diagnoses Not on filedocumented in this encounter Additional Health Concerns Infection Onset Date Last Indicated Resolved Time CoV-Risk Comment:Per note documentation 03/30/2024 04/10/2024 8:37 AM EST CDiff-Risk 04/10/2024 04/10/2024 04/10/2024 6:05 AM EST C. diff 04/10/2024 05/07/2024 06/06/2024 1:21 AM EST CDiff-Risk 04/10/2024 04/10/2024 04/10/2024 7:25 AM EST Assessment Noted Time PHQ-9 Depression Total Score: 26 023 12:21 PM EDT PHQ-2 Depression Total Score: 6 12/06/19 23 12:21 PM EDT documented as of this encounter Care Teams Junior Sales Representative Relationship Specialty Start Date End Date Chavo Jack MD [address] [place] [address] [email or web address] PCP - General Internal Medicine 09/18/22 01/30/23 Keren Poon CNP [address] [place] [address], [address] [place] [address] [email or web address] PCP - General Family Medicine 01/31/23 Cash Fernandes MD [address] [place] [address] [email or web address] 08/23/20 Seven Menchaca MD [address] [place] [address] [email or web address] Insurance Assigned Provider 08/04/22 08/03/23 Chavo Jack MD [address] [place] [address] [email or web address] Insurance Assigned Provider 08/03/23 05/04/24 Willi Wells MD [address] [facility] [address] Vinayak [address]_[place] [address] Rheumatology 02/04/24 Jose Thakur MD [address] [place] [address] Automobile Service Writer Pulmonary Disease 03/17/24 Dana Rucker FNP [facility], 2nd [place] [address] [email or web address] Nurse Practitioner Infectious Diseases 05/21/24 Jonathan Alvarez MD [address] [place] [address], [address] [place] [address] [email or web address] Urology 05/14/23 Anival Borja MD [address] [place] [address], [address] [place] [address] Neurologist Neurology 01/04/23 Lyndsay Reynoso FNP [address] [facility] [address] [place] [address] [email or web address] Nurse Practitioner Pain Medicine 05/27/22 Gutierrez Pittman MD [address] [place] [address] Court Abstractor Cardiology 05/27/24 documented as of this encounter Additional Source Comments The information contained in this document represents components of the legal health record. It is not the complete legal health record.[facility]
--- OUTSIDE RECORDS SUMMARY | 2024-06-26 09:26 | XMS_ITS | Encounter Summary ---
Author Organization [facility] Address [phone] [facility] [place] [address] Care Team Providers Care Health Care Recruiter Name Role Phone Unavailable Primary Care Provider Unavailabl e Encounter Details Date Type Department Care Team (Late st Contact Info) Description 10/09/2012 Hospital Encounter [facility],Outside Imaging [address] [place], [place] [phone] System, Provider Not In, [place] [address] Social History Tobacco Use Types Packs/Day Years [...] st Contact Info) Description 06/06/2024 Procedure Pass [facility], [facility] [address] [place] [address] 06/26/2024 2:00 PM EST [facility] [address] [place] [phone] Miya Monte, DIRECTOR OF ACCREDITATION [address] [place] [address] 06/30/2024 1:15 PM EST [facility] [address] [place] [phone] Miya Monte, DIRECTOR OF ACCREDITATION [address] [place] [address] 07/01/2024 2:30 PM EST Office Visit [facility] Allergy [facility] Critical Care Medicine [address] [place] [address] Jose Thakur MD [address] [place] [address] 07/02/2024 2:15 AM EST [facility] [address] [place] [phone] Miya Monte, DIRECTOR OF ACCREDITATION [address] [place] [address] 07/07/2024 3:00 AM EDT Home Care Visit [facility] [address] [place] [phone] Miya Monte, DIRECTOR OF ACCREDITATION [address] [place] [address] 07/09/2024 12:45 AM EDT [facility] [address] [place] [phone] Merly Matos, PT [address] [place] [address] 07/30/2024 3:30 PM EDT Office Visit [address] [place] [address] Keren Poon CNP [address] [place] [address] 09/18/2024 2:30 PM EDT Office Visit [facility] Infectious Diseases [address] [place] [address] Dana Rucker, DISPATCHER [employer] [address] [address] 11/26/2024 3:30 PM EDT Office Visit [address] [place] [address] Keren Poon CNP [address] [place] [address] 12/11/2024 2:00 PM EDT Appointment [facility], [address] [address] Keren Poon CNP [address] [place] [address] 06/03/2025 2:00 PM EST Office Visit [address] [place] [address] Keren Poon CNP [address] [place] [address] documented as of this encounter Procedures Procedure [...] It is not the complete legal health record.[facility]
--- OUTSIDE RECORDS SUMMARY | 2024-06-26 09:26 | XMS_ITS | Encounter Summary ---
Author Organization [facility] Address [address] [place] [address] Care Team Providers Care Program Director/Music Director Name Role Phone Alberto Pacheco Primary Care Provider [phone] Charly Saxena Primary Care Provider [phone] Cheryl Calderon MD Primary Care Provider [phone] Encounter Details Date Type Department Care Team (Late st Contact Info) Description 10/28/2012 Orders Only [facility] Rheumatology [address] [place] [address] Abel Fierro MD [address] [place] [address] Social History Tobacco Use Types Packs/Day Years [...] of this encounter Procedures * Due to [place] state law, this organization might not be sharing negative HIV tests. Procedure Name Priority Date/Time Associated Diagnosis Comments CBC INCLUDES DIFFERENTIAL AND PLATELET COUNT Routine 10/28/2012 2:15 PM EDT Rheumatoid arthritis (HCC) ALANINE AMINOTRANSFERASE (ALT), SERUM Routine 10/28/2012 2:15 PM EDT Rheumatoid arthritis (HCC) ASPARTATE AMINOTRANSFERASE (AST), SERUM Routine 10/28/2012 2:15 PM EDT Rheumatoid arthritis (HCC) CREATININE WITH GLOMERULAR FILTRATION RATE, ESTIMATED (EGFR) Routine 10/28/2012 2:15 PM EDT Rheumatoid arthritis (HCC) documented in this encounter Results * Due to [place] state law, this organization might not be sharing negative HIV tests. * CREATININE WITH GLOMERULAR FILTRATION RATE, ESTIMATED (EGFR) (10/28/2012 2:15 PM EDT) Creatinine 0.73 0.50 - 1.05 mg/dL [facility] Comment: {CREATININE {[id number]) For patients >49 years of age, the reference limit for Creatinine is approximately 13% higher for people identified as -Palauan. GFR 91 > OR = 60 mL/min/1. 73m2 [facility] Comment:{eGFR NON-AFR. AMERI CAN {[id number]) GFR () 106 > OR = 60 mL/min/1. 73m2 [facility] Comment:{eGFR AMERIC AN {[id number]) 10/28/2012 2:15 PM EDT 10/28/2012 11:59 PM EDT Narrative [facility] - 10/29/2012 3:09 AM EDT Please note that this estimated GFR [...] needs for GFR calculation. Resulting Agency Comment [id number] us Abel Fierro MD LAB SAME DAY RESULT Final Resul t [facility] [address] [place] [address] * ALANINE AMINOTRANSFERASE (ALT), SERUM (10/28/2012 2:15 PM EDT) ALT (SGPT) 21 6 - 29 U/L [facility] Comment:{ALT {[id number]) 10/28/2012 2:15 PM EDT 10/28/2012 11:59 PM EDT Narrative Resulting Agency Comment [id number] Abel Fierro MD LAB SAME DAY RESULT Final Resul t Performing Organization Address City/[facility]/ZIP Co de Phone Number [facility] [address] [place] [address] * ASPARTATE AMINOTRANSFERASE (AST), SERUM (10/28/2012 2:15 PM EDT) Pathologist [facility] AST (SGOT) 19 10 - 35 U/L [facility] Comment:{AST {[id number]) 10/28/2012 2:15 PM EDT 10/28/2012 11:59 PM EDT Narrative Resulting Agency Comment [id number] Abel Fierro MD LAB SAME DAY RESULT Final Resul t Performing Organization Address [facility] Co de Phone Number [facility] [address] [place] [address] * (ABNORMAL) CBC INCLUDES DIFFERENTIAL AND PLATELET COUNT (10/28/2012 2:15 PM EDT) Pathologist [facility] WBC 10.8 3.8 - 10.8 Thousand/ uL [facility] Comment:{WHITE BLOOD CELL CO UNT {[id number]) RBC 5.06 3.80 - 5.10 Million/u L [facility] Comment:{RED BLOOD CELL COUN T {[id number]) Hemoglobin 12.9 11.7 - 15.5 g/dL [facility] Comment:{HEMOGLOBIN {[id number]) Hematocrit 41.7 35.0 - 45.0 % [facility] Comment:{HEMATOCRIT {[id number]) MCV 82.5 80.0 - 100.0 fL [facility] Comment:{MCV {[id number]) MCH 25.5(L) 27.0 - 33.0 pg [facility] Comment:{MCH {[id number]) MCHC 31.0(L) 32.0 - 36.0 g/dL [facility] Comment:{MCHC {[id number]) RDW 14.6 11.0 - 15.0 % [facility] Comment:{RDW {[id number]) PLT 367 140 - 400 Thousand/ uL [facility] Comment:{PLATELET COUNT {[id number]) MPV 7.3(L) 7.5 - 11.5 fL [facility] Comment:{MPV {[id number]) Neutrophils # 5692 1500 - 7800 cells/uL [facility] Comment:{ABSOLUTE NEUTROPHIL S {[id number]) Lymphocytes # 3964(H) 850 - 3900 cells/uL [facility] Comment:{ABSOLUTE LYMPHOCYTE S {[id number]) Monocytes # 832 200 - 950 cells/uL [facility] Comment:{ABSOLUTE MONOCYTES {[id number]) Eosinophils # 248 15 - 500 cells/uL [facility] Comment:{ABSOLUTE EOSINOPHIL S {[id number]) Basophils # 65 0 - 200 cells/uL [facility] Comment:{ABSOLUTE BASOPHILS {[id number]) Neutrophils % 52.7 % [facility] Comment:{NEUTROPHILS {[id number]) Lymphocytes % 36.7 % [facility] Comment:{LYMPHOCYTES {[id number]) Monocytes % 7.7 % [facility] Comment:{MONOCYTES {[id number]) Eosinophils % 2.3 % [facility] Comment:{EOSINOPHILS {[id number]) Basophils % 0.6 % [facility] Comment:{BASOPHILS {[id number]) 10/28/2012 2:15 PM EDT 10/28/2012 11:59 PM EDT Narrative Resulting Agency Comment [id number] us Abel Fierro MD LAB SAME DAY RESULT Final Resul t [facility] [address] [place] [address] documented in this encounter Visit Diagnoses Diagnosis Rheumatoid arthritis(714.0) Rheumatoid arthritis documented in this encounter Care Teams Program Director/Music Director Relationship Specialty Start Date End Date Alberto Pacheco [address] [place] [phone] PCP - General 07/19/08 05/24/13 Charly Saxena [facility] [address] [place] [address] PCP - General Internal Medicine 05/25/13 07/16/[address] [facility] Adult Medicine [address] [place] [address] PCP - General Internal Medicine 07/17/17 documented as of this encounter
--- OUTSIDE RECORDS SUMMARY | 2024-06-26 09:26 | XMS_ITS | Encounter Summary ---
Author Organization [facility] Address [address] [place] [address] Care Team Providers Care Waistband Setter Lockstitch Name Role Phone Charly Saxena Primary Care Provider [phone] Cheryl Calderon MD Primary Care Provider [phone] Encounter Details Date Type Department Care Team (Late st Contact Info) Description 05/25/2013 Orders Only [facility] [address] [place] [address] Abel Fierro MD [address] [place] [address] Social History Tobacco Use Types Packs/Day Years [...] Procedure Name Priority Date/Time Associated Diagnosis Comments C-REACTIVE PROTEIN (CRP) - INFLAMMATION Routine 05/25/2013 3:30 PM EST Rheumatoid arthritis (HCC) ERYTHROCYTE SEDIMENTATION RATE (ESR) Routine 05/25/2013 3:30 PM EST Rheumatoid arthritis (HCC) documented in this encounter Results * Due to [place] state law, this organization might not be sharing negative HIV tests. * C-REACTIVE PROTEIN (CRP) - INFLAMMATION (05/25/2013 3:30 PM EST) C reactive protein 0.52 <0.80 mg/dL [facility] Comment: {C-REACTIVE PROTEIN {[id number]) Please be advised that patients taking Carboxypenicillins may exhibit falsely decreased C-Reactive Protein levels due to an analytical interference in this assay. 05/25/2013 3:30 PM EST 05/25/2013 6:52 PM EST Narrative Resulting Agency Comment [id number] us Abel Fierro MD LABORATORY Final Result Performing Organization Address [facility] de Phone Number [facility] [address] [place] [address] * (ABNORMAL) ERYTHROCYTE SEDIMENTATION RATE (ESR), SHAJIREN (05/25/2013 3:30 PM EST) Sedimentation Rate [place] (ESR) 32(H) < OR = 30 mm/h [facility] Comment:{SED RATE BY MODIFIE D KUNAL {[id number]) 05/25/2013 3:30 PM EST 05/25/2013 6:52 PM EST Narrative Resulting Agency Comment [id number] us Abel Fierro MD LAB SAME DAY RESULT Final Resul t Performing Organization Address [facility] de Phone Number [facility] [address] [place] [address] documented in this encounter Visit Diagnoses Diagnosis Rheumatoid arthritis(714.0) Rheumatoid arthritis documented in this encounter Care Teams Waistband Setter Lockstitch Relationship Specialty Start Date End Date Charly Saxena [facility] [place], [place] [id number] PCP - General Internal Medicine 05/25/13 07/16/17 Cheryl Calderon MD [facility] Adult Medicine [address] [place] [address] [place] [address] PCP - General Internal Medicine 07/17/17 documented as of this encounter
--- OUTSIDE RECORDS SUMMARY | 2024-06-26 09:26 | XMS_ITS | Encounter Summary ---
Author Organization [facility] Address [address] [place] [address] Care Team Providers Care Black Jack Dealer Name Role Phone Charly Saxena Primary Care Provider Cheryl Calderon MD Primary Care Provider [phone] Encounter Details Date Type Department Care Team (Late st Contact Info) Description 05/25/2013 Orders Only [facility] Rheumatology [address] [place] [address] Abel Fierro MD [address] [place] [address] Social History Tobacco Use Types Packs/Day Years [...] on file documented as of this encounter Results * Due to [place] state law, this organization might not be sharing negative HIV tests. * C-REACTIVE PROTEIN (CRP) - INFLAMMATION (05/25/2013 3:30 PM EST) C reactive protein 0.52 <0.80 mg/dL [facility] Comment: {C-REACTIVE PROTEIN {[id number]) Please be advised that patients taking Carboxypenicillins may exhibit falsely decreased C-Reactive Protein levels due to an analytical interference in this assay. 05/25/2013 3:30 PM EST 05/25/2013 6:52 PM EST Narrative Resulting Agency Comment [id number] us Abel Fierro MD LABORATORY Final Result Performing Organization Address [facility] Co de Phone Number [facility] [address] [place] [address] * (ABNORMAL) ERYTHROCYTE SEDIMENTATION RATE (ESR), KUNAL (05/25/2013 3:30 PM EST) Sedimentation Rate [place] (ESR) 32(H) < OR = 30 mm/h [facility] Comment:{SED RATE BY JONATHAN SYED {[id number]) 05/25/2013 3:30 PM EST 05/25/2013 6:52 PM EST Narrative Resulting Agency Comment [id number] us Abel Fierro MD LAB SAME DAY RESULT Final Resul t Performing Organization Address [facility] Co de Phone Number [facility] [address] [place] [address] documented in this encounter Visit Diagnoses Diagnosis Rheumatoid arthritis(714.0)- Primary Rheumatoid arthritis documented in this encounter Care Teams Black Jack Dealer Relationship Specialty Start Date End Date Charly Saxena [facility] [address] [place] [address] PCP - General Internal Medicine 05/25/13 07/16/17 Cheryl Calderon MD [facility] [address] [place] [address] PCP - General Internal Medicine 07/17/17 documented as of this encounter
--- OUTSIDE RECORDS SUMMARY | 2024-06-26 09:26 | XMS_ITS | Encounter Summary ---
Author Organization [facility] Address [phone] Formerly [facility] [place] [address] Care Team Providers Care Data Officer Name Role Phone Patrick Sanchez MD Unavailable [phone] Charly Saxena DO Primary Care Provider Cheryl Calderon MD Primary Care Provider Keren Mabry MD Unavailable Louisa Hogan MD Unavailable Charly Saxena DO Unavailable [phone] Abhinav Muhammad MD Unavailable [phone] Cheryl Giraldo NP Unavailable Wilfrido Steel MD Unavailable [phone] Sharon Martin PA-C Unavailable Ita Pineda [facility] Primary Care Provider Cash Fernandes MD Unavailable [phone] Seven Menchaca MD Unavailable Chavo Jack MD Primary Care Provider Keren Poon [facility] Primary Care Provid er Chavo Jack MD Unavailable Willi Wells MD Unavailable Jose Thakur MD Unavailable Dana Rucker HYDROELECTRIC PLANT TECHNICIAN Unavailable [phone] Jonathan Alvarez MD Unavailable [phone] Anival Borja MD Unavailable [phone] Lyndsay Reynoso HYDROELECTRIC PLANT TECHNICIAN Unavailable Gutierrez Pittman MD Unavailable Encounter Details Date Type Department Care Team (Late Contact Info) Description 12/20/2017 Procedure Pass [facility] Periop 6th floor [address] [place] [address] Social History Tobacco Use Types Packs/Day Years Used Date Smoking Tobacco: Never Smokeless Tobacco: Never Alcohol Use Standard Drinks/Week Comments Yes 0 (1 standard drink = 0.6 oz pur e alcohol) 1-2 drinks per month Sex and Gender Information Value Date Recorded Sex Assigned at Female 08/18/2020 10:48 PM EDT Gender Identity Female 08/18/2020 10:48 PM EDT Sexual Orientation Straight 09/27/2020 4: 02 PM EDT documented as of this encounter Plan of Treatment Upcoming Encounters Date Type Department Care Team (Late Contact Info) Description 06/06/2024 Procedure Pass [facility] [address] [place] [address] 06/26/2024 2:00 PM EST [facility] [address] [place] [phone] Miya Monte, [facility] [address] [place] [address] 06/30/2024 1:15 PM EST [facility] [address] [place] [address] Miya Monte, BOTANY LABORATORY ASSISTANT [address] [place] [address] 07/01/2024 2:30 PM EST Office Visit [facility] Pulmonary, Allergy and Critical Care Medicine [address] [place] [address] Jose Thakur MD [address] [place] [address] 07/02/2024 2:15 AM EST [facility] [address] [place] [phone] Miya Monte, BOTANY LABORATORY ASSISTANT [address] [place] [address] 07/07/2024 3:00 AM EDT [facility] [address] [place] [phone] Miya Monte, BOTANY LABORATORY ASSISTANT [address] [place] [address] 07/09/2024 12:45 AM EDT Home [facility] Visit [facility] [address] [place] [phone] Merly Matos, PT [address] [place] [address] 07/30/2024 3:30 PM EDT Office Visit [facility] [address] [place] [address] [place] [address] Keren Poon, ELECTRONIC TRAIN CONTROL TECHNICIAN [address] [facility], 2nd [place] [address] 09/18/2024 2:30 PM EDT Office Visit [facility] Infectious Diseases [address] [place] [address] Dana Rucker, HYDROELECTRIC PLANT TECHNICIAN 15 [facility], [address] [place] [address] 11/26/2024 3:30 PM EDT Office Visit [address] [place], [place] [address] Keren Poon, ORI [address] [place] [address] 12/11/2024 2:00 PM EDT Appointment [address] [place] [address] Keren Poon, ORI [address] [place] [address] 06/03/2025 2:00 PM EST Office Visit [address] [place], [place] [address] Keren Poon, ELECTRONIC TRAIN CONTROL TECHNICIAN [address] [place] [address] documented as of this encounter Visit Diagnoses [...] AM EST documented as of this encounter Care Teams Data Officer Relationship Specialty Start Date End Date Charly Saxena DO [address] [address] PCP - General Internal Medicine 10/05/14 04/22/18 Cheryl Calderon MD [address] [place] [address] PCP - General Family Medicine 04/23/18 08/18/20 Ita Pineda CNP [address] [place] [address] [email or web address] PCP - General Internal Medicine 08/19/20 09/17/22 Chavo Jack MD [address] [place] [address] PCP - General Internal Medicine 09/18/22 01/30/23 Keren Poon CNP [address] [place] [address], 2nd [place] [address] [email or web address] PCP - General Family Medicine 01/31/23 Patrick Sanchez MD [address] [place] [address] Department [place] [address] [email or web address] Historical LMR Provider 09/10/14 Keren Mabry MD [address] [place] [address] Historical LMR Provider 07/10/18 Louisa Hogan MD [address] [place] [address] [email or web address] Historical LMR Provider 07/10/1807/29 Charly Saxena DO [address] [address] Historical LMR Provider 07/10/18 Abhinav Muhammad MD [address] [place] [address] [address] [place] [address] [email or web address] Historical LMR Provider 07/10/18 08/22/20 Cheryl Giraldo NP [address] [place] [address] Historical LMR Provider 07/10/18 Wilrfido Steel MD 12 [facility]. [address] [place] [address] Historical LMR Provider 07/10/18 Sharon Martin PA-C [address] [place] [address] 104 [place] [address] Historical LMR Provider 07/10/18 08/22/20 Cash Fernandes MD [address] [place] [address] Gastroenterology 08/23/20 Seven Menchaca MD [address] [place] [address] Insurance Assigned Provider 08/04/22 08/03/23 Chavo Jack MD [address] [place] [address] Insurance Assigned Provider 08/03/23 05/04/24 Willi Wells MD [address] [facility] [address] Vinayak [address]_[place] [address] Rheumatology 02/04/24 Jose Thakur MD [address] [place] [address] On Site Nurse Pulmonary Disease 03/17/24 Dana Rucker FNP 15 [facility], 2nd [place] [address] [email or web address] Nurse Practitioner Infectious Diseases 05/21/24 Jonathan Alvarez MD [address] [place] [address], [address] [place] [address] Urology 05/14/23 Anival Borja MD [address] [place] [address], [address] [place] [address] Neurologist Neurology 01/04/23 Lyndsay Reynoso FNP [address] [facility] [address] [place] [address] [email or web address] Nurse Practitioner Pain Medicine 05/27/22 Gutierrez Pittman MD [address] [place] [address] Chemical Analyst Cardiology 05/27/24 documented as of this encounter Additional Source Comments The information contained in this document represents components of the legal health record. It is not the complete legal health record.[facility]
--- OUTSIDE RECORDS SUMMARY | 2024-06-26 09:26 | XMS_ITS | Encounter Summary ---
Author Organization [facility] Address [phone] [facility] [place] [address] Care Team Providers Care Account Installer Name Role Phone Cash Fernandes MD Unavailable [phone] Keren Poon [facility] Primary Care Provid er Chavo Jack MD Unavailable Willi Wells MD Unavailable Jose Thakur MD Unavailable Dana Rucker TRUCK DRIVER SALESPERSON Unavailable [phone] Jonathan Alvarez MD Unavailable [phone] Anival Borja MD Unavailable [phone] Lyndsay Reynoso TRUCK DRIVER SALESPERSON Unavailable Gutierrez Pittman MD Unavailable [phone] Encounter Details Date Type Department Care Team (Late st Contact Info) Description 01/06/2024 Procedure Pass [facility] Endoscopy Admitting Dept [facility] Department [address] [place] [address] Social History Tobacco Use Types Packs/Day Years Used Date Smoking Tobacco: Never Smokeless Tobacco: Never Alcohol Use Standard Drinks/Week Comments Not Currently 0 (1 standard drink = 0.6 oz pur e alcohol) Home Health Assessment: Transportation Answer Date Recorded Lack of Transportation (Medical) No 12/02/2023 Lack of Transportation (Non-Medical) No 12/02/2023 Patient Unable or Declines to Respond No 12/02/2023 Child or Family Care Answer Date Record [...] your housing situation today? I have jo salas 09/26/2020 How many times have you move [...] st Contact Info) Description 06/06/2024 Procedure Pass [facility]- [address] [address] 06/26/2024 2:00 PM EST [facility] [address] [place] [phone] Miya Monte, BUTTERMILK DRIER OPERATOR [address] [place] [address] 06/30/2024 1:15 PM EST [facility] [address] [address] Miya Monte, BUTTERMILK DRIER OPERATOR [address] [place] [address] 07/01/2024 2:30 PM EST Office Visit [facility] Pulmonary, Allergy and Critical Care Medicine [address] [place] [address] Jose Thakur MD [address] [place] [address] 07/02/2024 2:15 AM EST [facility] [address] [place] [address] Miya Monte, BUTTERMILK DRIER OPERATOR [address] [place] [address] 07/07/2024 3:00 AM EDT [facility] [address] [place] [phone] Miya Monte, BUTTERMILK DRIER OPERATOR [address] [place] [address] 07/09/2024 12:45 AM EDT Home Care Visit [facility] [address] [place] [address] Merly Matos, PT [address] [place] [address] 07/30/2024 3:30 PM EDT Office Visit [address] [place] [address] Keren Poon, ORI [address] [address] 09/18/2024 2:30 PM EDT Office Visit [facility] Infectious Diseases [address] [place] [address] Dana Rucker, TRUCK DRIVER SALESPERSON [address] [address] 11/26/2024 3:30 PM EDT Office Visit [address] [place] [address] Keren Poon, ORI [address] [address] 12/11/2024 2:00 PM EDT Appointment [facility] [address] [place] [address] Keren Poon, ORI [address] [address] 06/03/2025 2:00 PM EST Office Visit [address] [place] [address] Keren Poon, ORI [address] [address] [email or web address] documented as of this encounter Visit Diagnoses Not on filedocumented in this encounter Additional Health Concerns Infection Onset Date Last Indicated Resolved Time CoV-Risk Comment:Per note documentation 03/30/2024 04/10/2024 8:37 AM EST CDiff-Risk 04/10/2024 04/10/2024 04/10/2024 6:05 AM EST C. diff 04/10/2024 05/07/2024 06/06/2024 1:21 AM EST CDiff-Risk 04/10/2024 04/10/2024 04/10/2024 7:25 AM EST Assessment Noted Time PHQ-9 Depression Total Score: 5 05/09/19 6:55 AM EST PHQ-2 Depression Total Score: 2 05/09/19 6:55 AM EST documented as of this encounter Care Teams Account Installer Relationship Specialty Start Date End Date Keren Poon CNP [address] [place] [address], 2nd [place] [address] [email or web address] PCP - General Family Medicine 01/31/23 Cash Fernandes MD [address] [place] [address] Gastroenterology 08/23/20 Chavo Jack MD [address] [place] [address] [email or web address] Insurance Assigned Provider 08/03/23 05/04/24 Willi Wells MD [address] [place] [address]_[place] [address] Rheumatology 02/04/24 Jose Thakur MD [address] [place] [address] Television Picture Tube Rebuilder Pulmonary Disease 03/17/24 Dana Rucker FNP 15 [facility], 2nd [place] [address] Nurse Practitioner Infectious Diseases 05/21/24 Jonathan Alvarez MD [address] [place] [address], [address] [place] [address] Urology 05/14/23 Anival Borja MD [address] [place] [address], [address] [place] [address] Neurologist Neurology 01/04/23 Lyndsay Reynoso FNP 10 [facility] [address] [place] [address] [email or web address] Nurse Practitioner Pain Medicine 05/27/22 Gutierrez Pittman MD [address] [place] [address] River Rafting Guide Cardiology 05/27/24 documented as of this encounter Additional Source Comments The information contained in this document represents components of the legal health record. It is not the complete legal health record.[facility]
--- OUTSIDE RECORDS SUMMARY | 2024-06-26 09:26 | XMS_ITS | Encounter Summary ---
Author Organization [facility] Address [address] [place] [address] Care Team Providers Care Oil Well Service Operator Name Role Phone Alberto Pacheco Primary Care Provider [phone] Unknown Pcp, Non [facility] Primary Care Provider Unava ilCharly Antoine Primary Care Provider [phone] Charly Saexna Primary Care Provider Cheryl Calderon MD Primary Care Provider [phone] Encounter Details Date Type Department Care Team (Late st Contact Info) Description 03/14/2006 Orders Only [facility] Rhe[facility] [address] [place] [address] Nikkie Moss, CANDY BUTCHER [address] [place], [place] [phone] Social History Tobacco Use Types Packs/Day Years Used Date Smoking Tobacco: Never Assessed Comments Unknown Sex and Gender Information Value Date Recorded Sex Assigned at Not on file Legal Sex Female 8:11 PM EDT Gender Identity Not on file Sexual Orientation Not on file documented as of this encounter Plan of Treatment Not on file documented as of this encounter Visit Diagnoses Not on filedocumented in this encounter Care Teams Oil Well Service Operator Relationship Specialty Start Date End Date Alberto Pacheco [address] [place] [address] PCP - General 07/19/08 05/24/13 Unknown Pcp, Non [facility]mg PCP - General 06/30/08 07/18/08 Charly Saxena [facility] [address] [place] [address] PCP - General 01/18/06 06/29/08 Charly Saxena [facility] [address] [place] [address] PCP - General Internal Medicine 05/25/13 07/16/17 Cheryl Calderon MD [facility] Medicine [address] [place] [address] PCP - General Internal Medicine 07/17/17 documented as of this encounter
--- OUTSIDE RECORDS SUMMARY | 2024-06-26 09:26 | XMS_ITS | Encounter Summary ---
Author Organization [facility] Address [phone] [facility] [place] [address] Care Team Providers Care Candy Spreader Helper Name Role Phone Patrick Sanchez MD Unavailable [phone] Charly Saxena DO Primary Care Provider Cheryl Calderon MD Primary Care Provider Keren Mabry MD Unavailable Louisa Hogan MD Unavailable Charly Saxena DO Unavailable [phone] Abhinav Muhammad MD Unavailable [phone] Cheryl Giraldo NP Unavailable Wilfrido Steel MD Unavailable [phone] Sharon Martin PA-C Unavailable Ita Pineda [facility] Primary Care Provider Cash Fernandes MD Unavailable [phone] Seven Menchaca MD Unavailable [phone] Chavo Jack MD Primary Care Provider Keren Poon [facility] Primary Care Provid er Chavo Jack MD Unavailable Willi Wells MD Unavailable Jose Thakur MD Unavailable Dana Rucker BONDING MACHINE OPERATOR Unavailable Jonathan Alvarez MD Unavailable [phone] Anival Borja MD Unavailable Lyndsay Reynoso BONDING MACHINE OPERATOR Unavailable Gutierrez Pittman MD Unavailable Encounter Details Date Type Department Care Team (Late st Contact Info) Description 12/27/2017 Ancillary Orders [facility] Orthopedics at [address] [address] Patrick Sanchez MD [address] [place] [address] Department [place] [address] [email or web address] U Right hand pain Social History Tobacco Use Types Packs/Day Years [...] st Contact Info) Description 06/06/2024 Procedure Pass [facility], [facility] [address] [place] [address] 06/26/2024 2:00 PM EST Home Care Visit [facility] [address] [place] [phone] Miya Monte, WRAPPER LAYER AND EXAMINER SOFT WORK [address] [place] [address] 06/30/2024 1:15 PM EST Home Care Visit [facility] [address] [place] [phone] Miya Monte, WRAPPER LAYER AND EXAMINER SOFT WORK [address] [place] [address] 07/01/2024 2:30 PM EST Office Visit [facility] Pulmonary, Allergy and Critical Care Medicine [address] [place] [address] Jose Thakur MD [address] [place] [address] 07/02/2024 2:15 AM EST Home [facility] Visit [facility] [address] [place] [address] Miya Monte, WRAPPER LAYER AND EXAMINER SOFT WORK [address] [place] [address] 07/07/2024 3:00 AM EDT Home Care Visit [facility] [address] [place] [phone] Miya Monte, WRAPPER LAYER AND EXAMINER SOFT WORK [address] [place] [address] 07/09/2024 12:45 AM EDT Home Care Visit [facility] [address] [place] [phone] Merly Matos, PT [address] [place] [address] 07/30/2024 3:30 PM EDT Office Visit [facility] [address] [place] [address] [place] [address] Keren Poon, STRAIGHTEDGE MAN [address] [place] [address], [address] [place] [address] 09/18/2024 2:30 PM EDT Office Visit [facility] Infectious Diseases [address] [place] [address] Dana Rucker, BONDING MACHINE OPERATOR [address] [facility], 2nd [place] [address] 11/26/2024 3:30 PM EDT Office Visit [address] [place] [address] Keren Poon, ORI [address] [address] 12/11/2024 2:00 PM EDT Appointment [facility] [address] [facility] [place] [address] Keren Poon, ORI [address] [address] 06/03/2025 2:00 PM EST Office Visit [address] [place] [address] Keren Poon, ORI [address] [place] [address] documented as of this encounter Results * [place] Fluoroscopy Less Than 1 Hour (12/27/2017 9:03 AM EDT) Narrative CRYSTAL - 12/27/2017 9:04 AM EDT Fluoroscopy was provided during this procedure. Patrick YAÑEZ [place] MISC RONEL_ELLIOTFH documented in this encounter Visit Diagnoses Diagnosis Right hand pain Pain in soft tissues of limb Right hand pain Pain in soft tissues of limb documented in this encounter Additional Health Concerns Infection [...] documented as of this encounter Care Teams Candy Spreader Helper Relationship Specialty Start Date End Date Charly Saxena DO [address] [address] PCP - General Internal Medicine 10/05/14 04/22/18 Cheryl Calderon MD [address] [place] [address] PCP - General Family Medicine 04/23/18 08/18/20 Ita Pineda CNP [address] [place] [address] [email or web address] PCP - General Internal Medicine 08/19/20 09/17/22 Chavo Jack MD [address] [place] [address] PCP - General Internal Medicine 09/18/22 01/30/23 Keren Poon CNP [address] [place] [address], [address] [place] [address] [email or web address] PCP - General Family Medicine 01/31/23 Patrick Sanchez MD [address] [place] [address] Department [place] [address] [email or web address] Historical LMR Provider 09/10/14 Keren Mabry MD [address] [place] [address] Historical LMR Provider 07/10/18 [place] [address] [place] [address] [email or web address] Historical LMR Provider 07/10/1807/29 Charly Saxena DO [address] [place] [address] [address] [place] [address] Historical LMR Provider 07/10/18 Abhinav Muhammda MD [address] [place] [address] [address] [place] [address] [email or web address] Historical LMR Provider 07/10/18 08/22/20 Cheryl Giraldo SENIOR CLIENT ADVISOR [address] [place] [address] Historical LMR Provider 07/10/18 Wilfrido Steel MD [address] [place] [address] Historical LMR Provider 07/10/18 Sharon Martin PA-C [address] [place] [address] Historical LMR Provider 07/10/18 08/22/20 Cash Fernandes MD [address] [place] [address] Gastroenterology 08/23/20 Seven Menchaca MD [address] [place] [address] Insurance Assigned Provider 08/04/22 08/03/23 Chavo Jack MD [address] [place] [address] Insurance Assigned Provider 08/03/23 05/04/24 Willi Wells MD [address] [place] [address] Rheumatology 02/04/24 Jose Thakur MD [address] [place] [address] Magazine Repairer Pulmonary Disease 03/17/24 Dana Rucker FNP 15 [facility], 2nd [place] [address] Nurse Practitioner Infectious Diseases 05/21/24 Jonathan Alvarez MD [address] [place] [address], [address] [place] [address] [email or web address] Urology 05/14/23 Anival Borja MD [address] [place] [address], [address] [place] [address] [email or web address] Neurologist Neurology 01/04/23 Lyndsay Reynoso FNP [address] [place] [address] [place] [address] [email or web address] Nurse Practitioner Pain Medicine 05/27/22 Gutierrez Pittman MD [address] [place] [phone] Revenue Accounting Manager Cardiology 05/27/24 documented as of this encounter Additional Source Comments The information contained in this document represents components of the legal health record. It is not the complete legal health record.[facility]
--- OUTSIDE RECORDS SUMMARY | 2024-06-26 09:26 | XMS_ITS | Encounter Summary ---
Author Organization [facility] Address [address] [place] [address] Care Team Providers Care Home Care Assistant Name Role Phone Cheryl Calderon MD Primary Care Provider [phone] Reason for Visit * Reason Comments E-prescribing Refill Request Encounter Details Date Type Department Care Team (Late st Contact Info) Description 06/08/2019 Refill [facility]. Rheumatology [address] [place] [phone] Melanie Aguirre MD [address] [place] [address] E-prescribing Refill Request Social History Tobacco Use Types Packs/Day Years [...] on file documented as of this encounter Miscellaneous Notes * Telephone Encounter - Caren Bellamy - 06/10/2019 11:31 AM EST Any special requests or concerns? none Faxed/E-prescribed medication renewal request(s) for Opalkenia Iveynasra 64 y.o. female received from pharmacy. Verified and Confirmed pharmacy for patient. Last CPE with this specialty: Not Found Last OV with this specialty: 02/16/2019 Opal Juares is a very pleasant 64 y.o. 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 She had done very well on tofa, now, on 20 mg of prednisone a day, her knees are sore. 1.5 hours of am stiffness, pain at a 7 . She is off plaquenil. She has had two rituxan infusions, and feels better, with about thirty minutes of am stiffness, no new joints involved, pain level a 2. Assessment and Plan: Rheumatoid arthritis, on adequate therapy. Continue rituxan therapy, recent labs look good. Cytopenias; being followed by H/O. Rash; resolved, thought to be scle caused by tofacitinib. Hopefully rituximab will help. I will see her back in three months. Next OV: Future Appointments Date Time Provider Department Phone 06/19/19 1:45 PM Melanie Aguirre MD [facility] Rheumatology [phone] 08/04/19 2:40 PM Liliana Calderon NP [facility] Hematology/Oncology [phone] 11/10/19 1:30 PM Lyndsay Lopez MD [facility] Ophthalmology [phone] Pertinent lab results: Lab Results Component Value Date ESR 72 (H) 02/16/2019 CRP 79.2 (H) 02/16/2019 A1C 5.5 11/03/2004 An open order for ESR/CRP does not exist. No guidelines available based on last ESR. Refills at provider discretion. Allergies: Acetaminophen-codeine; Gold; Opioid analgesics; and Sulfa antibiotics BP Readings from Last 1 Encounters: 02/16/19 138/84 Patient Active Problem List Diagnosis Date Noted ??? Elbow pain 06/03/2012 ??? Rheumatoid arthritis(714.0) ([facility]) 09/29/2010 Followed by rheumatology treated with methotrexate, leflunomide, adalimumab and prednisone. Current Outpatient Medications on File Prior to Visit Medication Sig Dispense Refill ??? predniSONE (DELTASONE) 1 MG tablet Take one tablet (1 mg total) by mouth - as directed up to 4 a day 120 tablet 11 ??? predniSONE (DELTASONE) 10 MG tablet TAKE 2 TABLETS EVERY DAY OR DIRECTED 60 tablet 1 ??? Hydroxychloroquine Sulfate 200 MG Tab None Entered ??? amLODIPine Besylate 2.5 MG Tab None Entered ??? Atorvastatin Calcium 20 MG Tab None Entered ??? Levothyroxine Sodium 75 MCG Tab 1 tablet once daily ??? Potassium Chloride Stephanie CR (KLOR-CON M20) 20 MEQ Tab CR TAKE 2 TABLETS BY MOUTH TWICE A DAY -INCREASE 3 ??? Warfarin Sodium 2.5 MG Tab take 2 tablets by mouth at night ??? BuPROPion HCl 150 MG TABLET SR 24 HR 1 TABLET DAILY ??? FLUoxetine HCl 40 MG Cap 2 capsules daily (80 mg) ??? Solifenacin Succinate (VESICARE) 10 MG Tab 1 TABLET DAILY ??? FOLIC ACID 800 MCG OR TABS 1 TABLET DAILY ??? VITAMIN D 1000 UNIT OR TABS 1 TABLET DAILY ??? VITAMIN E 1000 UNIT OR CAPS 1 CAPSULE DAILY ??? VITAMIN B-6 100 MG OR TABS 1 tablet daily ??? VITAMIN B-12 1000 MCG OR TABS 1 tablet daily ??? Ferrous Sulfate (PX IRON) 27 MG OR TABS 1 tablet daily ??? CALCIUM 600 MG OR TABS 1 TABLET TWICE DAILY WITH FOOD ??? VITAMIN C 1000 MG OR TABS (500 mg tab) 2 TABLETs DAILY documented in this encounter Plan of Treatment Not on file documented as of this encounter Visit Diagnoses Not on filedocumented in this encounter Care Teams Home Care Assistant Relationship Specialty Start Date End Date Cheryl Calderon MD [facility] [address] [place] [address] PCP - General Internal Medicine 07/17/17 documented as of this encounter
--- OUTSIDE RECORDS SUMMARY | 2024-06-26 09:26 | XMS_ITS | Clinical Summary ---
Author Organization [facility] Address [address] [place] [address] Care Team Providers Care Maths Tutor Name Role Phone Cheryl Calderon MD Primary Care Provider [phone] Allergies Active Allergy Reactions Criticality Noted Date Comments Acetaminophen-Codeine Other 11/23/2002 Gold Urticarial Rash 11/15/2006 Also has swelling Morphine And Codeine Sulfa Antibiotics Dizzy/Confused 11/15/2006 Medications * This document contains information received from the source organization and may not represent a complete record from that organization. FOLIC ACID 800 MCG OR TABS 1 TABLET DAILY Active VITAMIN D 1000 UNIT OR TABS 1 TABLET DAILY Active VITAMIN E 1000 UNIT OR CAPS 1 CAPSULE DAILY Active VITAMIN B-6 100 MG OR TABS 1 tablet daily Active VITAMIN B-12 1000 MCG OR TABS 1 tablet daily Active Ferrous Sulfate (PX IRON) 27 MG OR TABS 1 tablet daily Active CALCIUM 600 MG OR TABS 1 TABLET TWICE DAILY WITH FOOD Active VITAMIN C 1000 MG OR TABS (500 mg tab) 2 TABLETs DAILY Active Solifenacin Succinate (VESICARE) 10 MG Tab 1 TABLET DAILY Active FLUoxetine HCl 40 MG Cap 2 capsules daily (80 mg) Active BuPROPion HCl 150 MG TABLET SR 24 HR 1 TABLET DAILY 05/05/2016 Active Potassium Chloride Stephanie CR (KLOR-CON M20) 20 MEQ Tab CR TAKE 2 TABLETS BY MOUTH TWICE A DAY -INCREASE 3 10/05/2016 Active Warfarin Sodium 2.5 MG Tab take 2 tablets by mouth at night 11/10/2016 Active Levothyroxine Sodium 75 MCG Tab 1 tablet once daily 07/10/2018 Active Hydroxychloroqu ine Sulfate 200 MG Tab None Entered 06/28/2018 Active amLODIPine Besylate 2.5 MG Tab None Entered 04/10/2018 Active Atorvastatin Calcium 20 MG Tab None Entered 09/10/2018 Active predniSONE (DELTASONE) 1 MG tablet Take one tablet (1 mg total) by mouth - as directed up to 4 a day 120 tablet 11 05/11/2019 Active predniSONE (DELTASONE) 10 MG tablet TAKE TWO TABLETS (20 MG TOTAL) BY MOUTH 1 (ONE) TIME EACH DAY OR DIRECTED 60 tablet 1 08/04/2019 Active Active Problems Problem Noted Date Diagnosed Date Elbow pain 06/03/2012 Rheumatoid arthritis(714.0) 09/29/2010 Overview (05/08/2015): Followed by rheumatology treated with methotrexate, leflunomide, adalimumab and prednisone. Immunizations Name Administration Dates Next Due COVID-19, mRNA (mymxlog Pre F all 2022) Monovalent, 30 mcg/0.3 ml 04/11/2021,10/03/2020,07/08/2020 Covid-19, mRNA (mymxlog Pre F all 2022) Bivalent, 30 mcg/0.3 ml mohan-sucrose (12+) dose 04/13/2022 Covid-19, mRNA (mymxlog Pre F all 2022) Monovalent, 30 mcg/0.3 ml mohan-sucrose (12+) 09/11/2021 Flu Vac Purchased 36 mos and older 02/12/2009 Influenza (H1N1) - 05/13/2009 Influenza (SEASONAL) - 02/28/2008 Influenza, Quad, Inactivated , Adjuvanted, Preser Fr 02/12/2021 Influenza,high-dose, Quadrivalent 03/07/2022 Influenza,injectable,quad,Prsrv Fr 01/07/2020,,01/21/2014 Influenza,seasonal,trivalent ,preservative (FLUZONE MDV) 03/08/2004,04/02/2002 PCV-13 09/27/2014 PPD/TST (Tuberculin Skin Test) 01/02/2017 PPV23 (Pneumovax) 07/10/2021,10/11/2011,06/26/19 Td (adult), adsorbed 07/05/1997 Tdap 09/27/2014,04/14/2010 influenza,seasonal,trivalent ,PF (Fluzone, Fluarix, Flulaval) 04/02/2012 Family History Medical History Relation Name Comments Cancer (?Type) Father pancreatic Cancer - Breast Other unspecified aunt Relation Name Status Comments Father Other Social History Tobacco Use Types Packs/Day Years Used Date Smoking Tobacco: Never Smokeless Tobacco: Never Alcohol Use Standard Drinks/Week Comments Yes 0 (1 standard drink = 0.6 oz pur e alcohol) occ Intimate Partner Violence Answer Date R ecorded Fear of Current or Ex-Partner Not on file Emotionally Abused Not on file 12/16/2022 Physically Abused Not on file 12/16/2022 Sexually Abused Not on file 12/16/2022 Feel Safe at Home Not on file 12/16/2022 Comments No Sex and Gender Information Value Date Recorded Sex Assigned at Not on file Legal Sex Female 8:11 PM EDT Gender Identity Not on file Sexual Orientation Not on file Occupation Industry Job Start Date Job End Date Not on file Not on file Not on file Not on file Last Filed Vital Signs Vital Sign Reading Time Taken Comments Blood Pressure 138/84 02/16/2019 1:29 PM EDT Pulse 76 02/16/2019 1:29 PM EDT Temperature 37.1 ??C (98.7 ??F) 01/27/2019 2:43 PM ED T Respiratory Rate 14 06/13/2012 10:42 AM EST Oxygen Saturation - - Inhaled Oxygen Concentration - - Weight 66.2 kg (146 lb) 01/27/2019 2:43 PM EDT Height 165.1 cm (5' 5 ) 11/18/2018 2:51 PM EDT Body Mass Index 24.3 11/18/2018 2:51 PM EDT Plan of Treatment Health Maintenance Due Date Last Done Comments Colon Cancer Screening 01/18/2000 Mammogram/Breast Imaging 06/25/2002 002, 10/13/1998, 09/08/1997, Additional history exists Zoster (Shingrix) (1 of 2) 2005 COVID-19 Vaccine ( season) 2023 04/13/2022, 09/11/2021, 04/11/2021, Additional history exists Influenza (#1) 2023 03/07/2022, 01/27, 01/07/2020, Additional history exists DTaP/Tdap/Td (3 - Td or Tdap) 09/27/2024 09/27/2014, 04/14/2010, 07/05/1997 RSV (1 - 1-dose 75+ series) 2030 Barium Enema Discontinued 06/07/2000 Pap Smear Discontinued 06/02/2003, 12/06/1999 Chest Imaging Discontinued 06/28/2003, 08/27, 08/27/2001, Additional history exists LDL Cholesterol Discontinued 11/03/2004, 06/27, 07/08/1990 PPD Discontinued 01/02/2017 EKG Discontinued 06/25/2018, 05/31, 06/23/2018, Additional history exists Bone Density Completed 12/05/2018, 11/28, 04/18/2012, Additional history exists Hepatitis C Screening Completed 12/23/2018 , 09/30/2018, 05/03/2006 Eye/Retina Exam Discontinued 01/23/2019, 11/28, 12/18/2018, Additional history exists Tonometry Discontinued 01/23/2019, 11/28, 11/03/2018, Additional history exists Pneumococcal 50+ years Completed 2, 09/27/2014, 10/11/2011, Additional history exists HPV Vaccine Aged Out No longer eligi ble based on patient's age to complete this topic Hep A Aged Out No longer eligi ble based on patient's age to complete this topic Hep B Aged Out No longer eligi ble based on patient's age to complete this topic Hib Aged Out No longer eligi ble based on patient's age to complete this topic Meningococcal ACWY Aged Out No longer eligible based on patient's age to complete this topic Zoster (Zostavax) Discontinued Procedures * Due to [place] state law, this organization might not be sharing negative HIV tests. Procedure Name Priority Date/Time Associated Diagnosis Comments COMPREHENSIVE EYE EXAM 01/23/2019 HEPATITIS C AB WITH REFLEX TO RNA PCR, SERUM Routine 12/23/2018 11:32 AM EDT Rheumatoid arthritis involving multiple sites with positive rheumatoid factor (HCC) DXA BONE DENSITY STUDY AXIAL (LSSPINE, HIP) (DX: POSTMENOPAUSAL) Routine 12/05/2018 1:43 PM EDT ELECTROCARDIOGRAM Routine 06/13/2012 11: 18 AM EST CARDIAC RISK/LIPID PROFILE I Routine 11/03/2004 9:46 AM EDT XRAY CHEST 2 VIEWS PA & LAT Routine 06/28/2003 1:26 PM EST Rheumatoid Arthritis (HCC) SCREENING MAMMOGRAPHY BILATERAL (TWO VIEW FILM STUDY OF EACH BREAST) Routine 06/25/2001 1:42 PM EST Other Screening Mammogram BARIUM ENEMA EXAM COLON W/WO KUB Routine 06/07/2000 8:40 AM EST Abdominal Pain, Unspecified Site PAP SMEAR Routine 12/06/1999 12:00 AM EDT from Last 3 Months or Most Recently Relevant to Health Maintenance Results * Due to [place] state law, this organization might not be sharing negative HIV tests. * COMPREHENSIVE EYE EXAM (01/23/2019) us Unknown Provider MINOR PROCEDURE Final Result * HEPATITIS C AB WITH REFLEX TO RNA PCR, SERUM (12/23/2018 11:32 AM EDT) Hepatitis C virus Ab NON-REACT MANOLO NON-REACT MANOLO [facility] Hepatitis C virus Ab Signal/Cutoff 0.01 <1.00 [facility] Comment: HCV antibody was non-reactive. There is no laboratory evidence of HCV infection. In most cases, no further action is required. However, if recent HCV exposure is suspected, a test for HCV RNA (test code 51786) is suggested. For additional information please refer to http://education.Skuld[employer]/faq/ATX56y9 (This link is being provided for informational/ educational purposes only.) 12/23/2018 11:3 2 AM EDT 12/23/2018 11:23 PM EDT Narrative Resulting Agency Comment [id number] us Liliana Calderon NP LABORATORY Final Result [facility] [address] [place] [address] * DXA BONE DENSITY STUDY AXIAL (LSSPINE, HIP) (DX: POSTMENOPAUSAL Z78.0/ V49.81 ) FC (12/05/2018 1:43PM EDT) Anatomical Region Laterality Modality BONE DENSITY Impressions 12/08/2018 10:19 AM EDT : This patient's FRAX 10-year fracture risk is in the range that FDA-approved medical therapy is recommended (see below). This patient's BMD is not in the osteoporotic range, however, calculated fracture risk is in a range in which consideration of treatment to decrease fracture risk is recommended. ??Fracture risk was calculated based on the risk factors reported by the patient as noted above. ??If the reported risk factors are not accurate, fracture risk should be calculated based on the correct risk factors, if there is a potential for the result to impact clinical management. (http://www.shef.ac.uk/FRAX/tool.jsp?locationValue=9) FOLLOWUP: Approximately 2-3 years or as clinically indicated. FRAX GENERAL INFORMATION: FRAX GENERAL INFORMATION: The fracture risk assessment tool (FRAX) was developed by the WHO (adapted to [place] epidemiological data) to help the clinician make treatment decisions in postmenopausal women and men aged 50 or older who have low bone mass. As this patient meets the NOF/ISCD criteria, a FRAX calculation was performed using FRAX Version [place] 3.00. According to the 2010 NOF Clinician's Guide, FDA approved medical therapy should be considered in postmenopausal women and men age 50 or older with a 10-year probability of a major osteoporosis-related fracture of 20% or higher or a 10-year probability of a hip fracture of 3% or higher. ??A clinician's judgment and/or patient preferences may indicate treatment for people with 10-year fracture probabilities above or below these levels. Refer to http://nof.org/professionals/clinical-guidelines or http://www.shef.ac.uk/FRAX/ for full details. Narrative 12/08/2018 10:19 AM EDT DUAL-ENERGY X-RAY ABSORPTIOMETRY (DXA) SCAN: ?? DXA MODEL: HoloCorindus Discovery SL in fast scan mode RISK FACTORS: The patient reports prior corticosteroid therapy and rheumatoid arthritis. TREATMENT: The patient reports calcium and vitamin D RESULTS: Lumbar Spine L1-L4: 1.035 g/cm2, T-score -0.1, Z-score 1.6, a 11.4 % change (significantly increased) compared to the prior study of 12/19/2016 and a 5.9 % change (significantly increased) compared to baseline scan of 06/02/1996. Left Femoral Neck: 0.632 g/cm2, ??T- score -2.0, Z-score -0.5 Left Total Hip: 0.781 g/cm2, ??T-score -1.3, Z-score -0.2, a 3.9 % change (significantly increased) compared to the prior study and a -8.3 % change (significantly decreased) compared to baseline scan. LIMITATIONS: Degenerative changes appear to be present in the lumbar spine which may cause an artifactual increase in BMD. DIAGNOSIS: Low bone mass (osteopenia) FRAX 10-year Fracture Risk: major osteoporotic fracture 19 % and hip fracture 3.5 %. us Cheryl Calderon MD IMG DEXA IMAGING Final Result * (ABNORMAL) EKG (06/13/2012 11:18 AM EST) VENTRICULAR RATE 88 BPM MUS E EKG SYSTEM ATRIAL RATE 88 BPM MUSE EKG SYSTEM P-R INTERVAL 150 ms MUSE EK G SYSTEM QRS DURATION 94 ms MUSE EK G SYSTEM QT 370 ms MUSE EKG SYSTEM QTC 447 ms MUSE EKG SYSTEM P AXIS 54 degrees MUSE EKG SYSTEM R AXIS -6 degrees MUSE EKG SYSTEM T AXIS 47 degrees MUSE EKG SYSTEM EKG INTERPRETATION Sinus rhythm with Premature atrial complexes Inferior infarct (cited on or before 27-JUN-2004) Abnormal ECG Per automated EKG reading, when compared to previous of 27-JUN-2004 15:51, Premature atrial complexes are now Present Vent. rate has increased BY ??38 BPM(A) MUSE EKG SYSTEM 06/13/2012 11:1 8 AM EST us Unknown Provider CARDIOVASCULAR-NO INBASKET RTG Final Result Performing Organization Address [facility] Co de Phone Number MUSE EKG SYSTEM * (ABNORMAL) CARDIAC RISK/LIPID PROFILE I (11/03/2004 9:46 AM EDT) [facility] CHOLESTEROL, TOTAL 191 100 - 199 MG/DL [facility] (CLIA# [id number]) TRIGLYCERIDES 132 30 - 149 MG/DL [facility] (CLIA# [id number]) HDL-CHOLESTEROL 85(H) 40 - 77 MG/DL [facility] (CLIA# [id number]) LDL-CHOLESTEROL 80 62 - 130 MG/DL [facility] (CLIA# [id number]) Comment: RISK CATEGORY: ??LDL-CHOLESTEROL GOAL CHD AND CHD RISK EQUIVALENTS: ??<100 MULTIPLE (2+) FACTORS: ??<130 ZERO TO ONE RISK FACTOR: ??<160 CHD RELATIVE RISK RATIO (TOTAL/HDL) 2.25 [facility] (CLIA# [id number]) Comment:(< .25 X AVERAGE) 11/03/2004 9:46 AM EDT 11/03/2004 9:46 AM EDT [facility]ative [facility] [id number][facility] - 11/03/2004 9:46 AM EDT FASTING Abel Fierro MD LABORATORY Final Result Performing Organization Address [facility] de Phone Number [facility] (CLIA# [id number]) [address] [place] [address] * XRAY CHEST 2 VIEWS PA & LAT (06/28/2003 1:26 PM EST) [facility] RADIOLOGY REPORT Chest: Lungs and pleural reflections are clear. Hilar contours heart size normal. Mild uncoiling aorta. There is no change from prior films Aug, 2001. An ??earlier exam then showed a rounded density superimposed lower thoracic spine in lateral projection which became less conspicuous on a follow-up film and there is no abnormal finding in this area. Conclusion: No acute disease. [facility] (CLIA# [id number]) Anatomical Region Laterality Modality Other 06/28/2003 1:26 PM EST Narrative 06/30/2003 4:39 PM EST Reason for Study/History: RA; DYSPNEA; ON METHOTREXATE Test(s) processed by : [facility] Abel Fierro MD GENERAL IMAGING- OTHER Final Re sult * SCREENING MAMMOGRAPHY BILATERAL (TWO VIEW FILM STUDY OF EACH BREAST) (06/25/2001 1:42 PM EST) RADIOLOGY REPORT Bilateral mammography Some fibroglandular density is seen in each breast. No distinctly separable masses, suspicious calcification, or other abnormalities are seen in either breast. When compared to the prior mammogram of 10/13/98 , no change has occurred. IMPRESSION: ?No radiographic evidence of malignancy. A letter (A) in lay language describing the results will follow this report. The FDA, in accordance with the Mammography Quality Standards Act, requires that this letter be sent to the patient by the interpreting radiologist. BI-RADS Category 1: Negative [facility] (CLIA# [id number]) LETTER SENT A mammogram letter type A N was printed on 07/08/2001 [facility] (CLIA# [id number]) Anatomical Region Laterality Modality Other 06/25/2001 1:42 PM EST Charly Saxena [facility] IMAGING- OTHER Final Res ult * BARIUM ENEMA EXAM COLON W/WO KUB (06/07/2000 8:40 AM EST) RADIOLOGY REPORT Barium enema: There is no obstruction to the flow of barium to the cecum where there is reflux into normal terminal ileum. There is ??moderate scattered fecal debris. No definite polyp or other mucosal lesions seen. There is a filling defect in its proximal sigmoid which is seen at several times during exam. While possibly a persistent muscle contraction or adherent fecal debris I cannot entirely exclude a polyp here. Moderate numbers of sigmoid diverticula with muscle spasm. There is no stricture or mass-effect on colon. Hemostasis clips right upper quadrant. Conclusion: Sigmoid diverticulosis. Filling defect proximal sigmoid is likely adherent fecal debris or persistent muscle contraction. A polyp is doubted but cannot entirely excluded and correlation with sigmoidoscopic evaluation is suggested. No definite polyp was seen. FC [facility] (CLIA# [id number]) Anatomical Region Laterality Modality Other 06/07/2000 8:40 AM EST Narrative 06/07/2000 2:57 PM EST Reason for Study/History: ABD PAIN Test(s) processed by : [facility] Jeff Puente PA-C CONTRAST STUDY- OTHER Elana l Result * PAP SMEAR (12/06/1999 12:00 AM EDT) SPERM SOURCE VCE [facility] (CLIA# [id number]) NUMBER OF SLIDES RECEIVED: 1 [facility] (CLIA# [id number]) HISTORY CLINICAL [facility] (CLIA# [id number]) Comment:Menopause [address] [facility] (CLIA# [id number]) Comment:Endocervical cells a re present SPECIMEN ADEQUACY: [facility] (CLIA# [id number]) Comment:Satisfactory specime n for Cytologic evaluation. PATHOLOGY DIAGNOSIS [facility] (CLIA# [id number]) Comment:WITHIN NORMAL LIMITS PATHOLOGY GROUP: [facility] (CLIA# [id number]) Comment: [address] [place]. [address] 12/06/1999 12/06/1999 Chloe Law MD PATHOLOGY Final Resul t [facility] (CLIA# [id number]) [address] [place] [address] from Last 3 Months or Most Recently Relevant to Health Maintenance Insurance , [address] [place] [address] MEDICARE PART B [facility] [employer] Care Teams Maths Tutor Relationship Specialty Start Date End Date Cheryl Calderon MD [facility] [address] [place] [address] PCP - General Internal Medicine 07/17/17
--- OUTSIDE RECORDS SUMMARY | 2024-06-26 09:26 | XMS_ITS | Encounter Summary ---
Author Organization [facility] Address [address] [place] [address] Care Team Providers Care Industrial/Organizational Psychologist Name Role Phone Alberto Pacheco Primary Care Provider [phone] Charly Saxena Primary Care Provider [phone] Cheryl Calderon MD Primary Care Provider [phone] Encounter Details Date Type Department Care Team (Late st Contact Info) Description 01/23/2013 Orders Only [facility] Rheumatology [address] [place] [address] Abel Fierro MD [address] [place] [address] Social History Tobacco Use Types Packs/Day Years [...] of this encounter Procedures * Due to [place] state law, this organization might not be sharing negative HIV tests. Procedure Name Priority Date/Time Associated Diagnosis Comments C-REACTIVE PROTEIN (CRP) - INFLAMMATION Routine 01/23/2013 4:26 PM EDT Rheumatoid arthritis (HCC) ERYTHROCYTE SEDIMENTATION RATE (ESR) Routine 01/23/2013 4:26 PM EDT Rheumatoid arthritis (HCC) CBC INCLUDES DIFFERENTIAL AND PLATELET COUNT Routine 01/23/2013 4:26 PM EDT Rheumatoid arthritis (HCC) ALANINE AMINOTRANSFERASE (ALT), SERUM Routine 01/23/2013 4:26 PM EDT Rheumatoid arthritis (HCC) ASPARTATE AMINOTRANSFERASE (AST), SERUM Routine 01/23/2013 4:26 PM EDT Rheumatoid arthritis (HCC) CREATININE WITH GLOMERULAR FILTRATION RATE, ESTIMATED (EGFR) Routine 01/23/2013 4:26 PM EDT Rheumatoid arthritis (HCC) documented in this encounter Results * Due to [place] state law, this organization might not be sharing negative HIV tests. * ERYTHROCYTE SEDIMENTATION RATE (ESR), SHAJIREN (01/23/2013 4:26 PM EDT) Sedimentation Rate [place] (ESR) 4 < OR = 30 mm/h [facility] Comment:{SED RATE BY MODIFIE D KUNAL {[id number]) 01/23/2013 4:26 PM EDT 01/23/2013 11:06 PM EDT Narrative Resulting Agency Comment [id number] us Abel Fierro MD LAB SAME DAY RESULT Final Resul t Performing Organization Address City/State/[facility] Co de Phone Number [facility] [address] [place] [address] * C-REACTIVE PROTEIN (CRP) - INFLAMMATION (01/23/2013 4:26 PM EDT) C reactive protein 0.49 <0.80 mg/dL [facility] Comment: {C-REACTIVE PROTEIN {[id number]) Please be advised that patients taking Carboxypenicillins may exhibit falsely decreased C-Reactive Protein levels due to an analytical interference in this assay. 01/23/2013 4:26 PM EDT 01/23/2013 11:06 PM EDT Narrative Resulting Agency Comment [id number] us Abel Fierro MD LABORATORY Final Result Performing Organization Address [facility] Co de Phone Number [facility] [address] [place] [address] * CREATININE WITH GLOMERULAR FILTRATION RATE, ESTIMATED (EGFR) (01/23/2013 4:26 PM EDT) Creatinine 0.81 0.50 - 1.05 mg/dL [facility] Comment: {CREATININE {[id number]) For patients >49 years of age, the reference limit for Creatinine is approximately 13% higher for people identified as -Filipino. GFR 80 > OR = 60 mL/min/1. 73m2 [facility] Comment:{eGFR NON-AFR. AMERI CAN {[id number]) GFR () 93 > OR = 60 mL/min/1. 73m2 [facility] Comment:{eGFR AMERIC AN {[id number]) 01/23/2013 4:26 PM EDT 01/23/2013 11:06 PM EDT Narrative [facility] - 01/24/2013 1:41 AM EDT Please note that this estimated [...] needs for GFR calculation. Resulting Agency Comment [id number] us Abel Fierro MD LAB SAME DAY RESULT Final Resul t Performing Organization Address [facility] Co de Phone Number [facility] [address] [place] [address] * (ABNORMAL) CBC INCLUDES DIFFERENTIAL AND PLATELET COUNT (01/23/2013 4:26 PM EDT) WBC 7.3 3.8 - 10.8 Thousand/ uL [facility] Comment:{WHITE BLOOD CELL CO UNT {[id number]) RBC 5.80(H) 3.80 - 5.10 Million/u L [facility] Comment:{RED BLOOD CELL COUN T {[id number]) Hemoglobin 15.0 11.7 - 15.5 g/dL [facility] Comment:{HEMOGLOBIN {[id number]) Hematocrit 47.0(H) 35.0 - 45.0 % [facility] Comment:{HEMATOCRIT {[id number]) MCV 81.1 80.0 - 100.0 fL [facility] Comment:{MCV {[id number]) MCH 25.9(L) 27.0 - 33.0 pg [facility] Comment:{MCH {[id number]) MCHC 31.9(L) 32.0 - 36.0 g/dL [facility] Comment:{MCHC {[id number]) RDW 16.0(H) 11.0 - 15.0 % [facility] Comment:{RDW {[id number]) PLT 327 140 - 400 Thousand/ uL [facility] Comment:{PLATELET COUNT {[id number]) MPV 7.8 7.5 - 11.5 fL [facility] Comment:{MPV {[id number]) Neutrophils # 3548 1500 - 7800 cells/uL [facility] Comment:{ABSOLUTE NEUTROPHIL S {[id number]) Lymphocytes # 2745 850 - 3900 cells/uL [facility] Comment:{ABSOLUTE LYMPHOCYTE S {[id number]) Monocytes # 767 200 - 950 cells/uL [facility] Comment:{ABSOLUTE MONOCYTES {[id number]) Eosinophils # 190 15 - 500 cells/uL [facility] Comment:{ABSOLUTE EOSINOPHIL S {[id number]) Basophils # 51 0 - 200 cells/uL [facility] Comment:{ABSOLUTE BASOPHILS {[id number]) Neutrophils % 48.6 % [facility] Comment:{NEUTROPHILS {[id number]) Lymphocytes % 37.6 % [facility] Comment:{LYMPHOCYTES {[id number]) Monocytes % 10.5 % [facility] Comment:{MONOCYTES {[id number]) Eosinophils % 2.6 % [facility] Comment:{EOSINOPHILS {[id number]) Basophils % 0.7 % [facility] Comment:{BASOPHILS {[id number]) 01/23/2013 4:26 PM EDT 01/23/2013 11:06 PM EDT Narrative Resulting Agency Comment [id number] us Abel Fierro MD LAB SAME DAY RESULT Final Resul t Performing Organization Address [facility] de Phone Number [facility] [address] [place] [address] * ASPARTATE AMINOTRANSFERASE (AST), SERUM (01/23/2013 4:26 PM EDT) AST (SGOT) 22 10 - 35 U/L [facility] Comment:{AST {[id number]) 01/23/2013 4:26 PM EDT 01/23/2013 11:06 PM EDT Narrative Resulting Agency Comment [id number] us Abel Fierro MD LAB SAME DAY RESULT Final Resul t Performing Organization Address [facility] de Phone Number [facility] [address] [place] [address] * ALANINE AMINOTRANSFERASE (ALT), SERUM (01/23/2013 4:26 PM EDT) ALT (SGPT) 21 6 - 29 U/L [facility] Comment:{ALT {[id number]) 01/23/2013 4:26 PM EDT 01/23/2013 11:06 PM EDT Narrative Resulting Agency Comment [id number] Abel Fierro MD LAB SAME DAY RESULT Final Resul t Performing Organization Address [facility] de Phone Number [facility] [address] [place] [address] documented in this encounter Visit Diagnoses Diagnosis Rheumatoid arthritis(714.0) Rheumatoid arthritis documented in this encounter Care Teams Industrial/Organizational Psychologist Relationship Specialty Start Date End Date Alberto Pacheco [address] [place] [address] PCP - General 07/19/08 05/24/13 Charly Saxena [facility] [address] [place] [address] PCP - General Internal Medicine 05/25/13 07/16/17 Cheryl Calderon MD [facility] Medicine [address] [place] [address] PCP - General Internal Medicine 07/17/17 documented as of this encounter
--- OUTSIDE RECORDS SUMMARY | 2024-06-26 09:26 | XMS_ITS | Encounter Summary ---
Author Organization [facility] Address [address] [place] [address] Care Team Providers Care Director Of Sales Name Role Phone Alberto Pacheco Primary Care Provider [phone] Charly Saxena Primary Care Provider [phone] Cheryl Calderon MD Primary Care Provider [phone] Reason for Visit * Reason Comments E-prescribing Refill Request Encounter Details Date Type Department Care Team (Late st Contact Info) Description 05/11/2013 Refill [facility] Rheumatology [address] [place] [id number] Anival Bales MD E-prescribing Refill Request Social History Tobacco Use [...] encounter Miscellaneous Notes * Telephone Encounter - Nikkie Moss - 05/11/2013 10:11 AM EST Faxed/E-prescribed medication renewal request(s) for Opal Juares 58 y.o. female received from pharmacy. Verified and Confirmed pharmacy for patient. Any special requests or concerns?- none/patient overdue for lab work/she will go this week Last CPE with this specialty: Last OV with this specialty: 01/23/2013 note below/next ov 05-25-16 Impression: Rheumatoid arthritis with persistent mild activity left wrist. She has had at most a modest response to treatment having tried multiple DMARD's and biologic agents. We will continue current regimen and resume adalimumab after she sees Dr. Andino unless he thinks there is an ongoing infection. Plan: As above. Check laboratory studies today and 2 months and see me in 4 months or sooner if needed. Note that she spends 2 days a week taking care of her nearly 4-year-old grandson Harshil in [place]. Next OV: Future Appointments Date Time Provider Department Center 05/25/2013 3:00 PM Abel Fierro MD [facility] Pertinent lab results: Lab Results Component Value Date AST 22 01/23/2013 ALT 21 01/23/2013 An open order for AST, ALT or LFT exists. Lab Results Component Value Date SODIUM 143 06/13/2012 POTASSIUM 3.8 06/13/2012 CHLOR 101 06/13/2012 CO2 30 06/13/2012 BUN 19 06/13/2012 CREATININE 0.81 01/23/2013 GLUCOSE 86 06/13/2012 ODALYS 10.8* 06/13/2012 An open order for Basic does not exist. Based on recommended yearly CBC, liver and kidney testing, 9 month supply suggested for Pyrimidine Synthesis Inhibitors, Inflammatory Bowel Agents, Minocycline, Mycophenolate, Cyclophosphamide or Hydroxychloroquine. Lab Results Component Value Date WBC 7.3 01/23/2013 HGB 15.0 01/23/2013 HCT 47.0* 01/23/2013 PLATELETS 327 01/23/2013 MCV 81.1 01/23/2013 RDW 16.0* 01/23/2013 An open order for CBC exists. Lab Results Component Value Date ALBUMIN 3.8 01/18/2009 An open order for Albumin does not exist. Allergies: Acetaminophen-codeine; Gold; Opioid analgesics; and Sulfa antibiotics BP Readings from Last 1 Encounters: 01/23/13 112/72 Patient Active Problem List Diagnosis Date Noted ??? Elbow pain 06/03/2012 ??? Rheumatoid arthritis 09/29/2010 Followed by rheumatology treated with methotrexate, leflunomide, adalimumab and prednisone. Current Outpatient Prescriptions on File Prior to Visit Medication Sig Dispense Refill ??? PredniSONE 10 MG Tab up to 2 TABLET DAILY 60 Tab 5 ??? PredniSONE 5 MG Tab TAKE 2 TABLETS BY MOUTH OR DIRECTED BY PHYSICIAN 60 Tab 1 ??? Leflunomide 20 MG Tab TAKE ONE TABLET BY MOUTH DAILY 90 Tab 0 ??? Metoprolol Tartrate 25 MG Tab 1 TABLET DAILY ??? PredniSONE 5 MG Tab TAKE 2 TABLETS BY MOUTH OR DIRECTED BY PHYSICIAN 60 Tab 1 ??? Adalimumab (HUMIRA) 40 MG/0.8ML Kit INJECT 40 MG ( 0.8 ML ) UNDER THE SKIN EVERY OTHER WEEK 2 Kit 4 ??? Methotrexate Sodium 25 MG/ML Solution INJECT 1 CC SUBCUTANEOUSLY EVERY WEEK 10 mL 0 ??? TUBERCULIN SYR 1CC/27GX1/2 (B-D TB SYRINGE 1CC/27GX1/2 ) 27G X 1/2 1 ML Misc TO BE USED WITH UNDER THE SKIN METHOTREXATE WEEKLY ADMINISTRATION 25 Syringe 0 ??? BuPROPion HCl (BUDEPRION XL) 300 MG TABLET SR 24 HR 1 TABLET DAILY ??? Solifenacin Succinate (VESICARE) 5 MG Tab 1 TABLET DAILY ??? ESTRADIOL VAGINAL (ESTRACE VAGINAL) 0.1 MG/GM Cream Apply at night ??? FOLIC ACID 800 MCG OR TABS 1 TABLET DAILY ??? VITAMIN D 1000 UNIT OR TABS 1 TABLET DAILY ??? VITAMIN E 1000 UNIT OR CAPS 1 CAPSULE DAILY ??? VITAMIN B-6 100 MG OR TABS None Entered ??? VITAMIN B-12 1000 MCG OR TABS None Entered ??? Ferrous Sulfate (PX IRON) 27 MG OR TABS None Entered ??? CALCIUM 600 MG OR TABS 1 TABLET TWICE DAILY WITH FOOD ??? VITAMIN C 1000 MG OR TABS 1 TABLET DAILY AT DINNER ??? Zolpidem Tartrate (AMBIEN) 10 MG OR TABS prn ??? DULoxetine HCl (CYMBALTA) 30 MG OR CPEP 90 mg. qd ??? HYDROCHLOROTHIAZIDE 25 MG OR TABS 1 TABLET DAILY ??? LANSOPRAZOLE (PREVACID) 30 MG OR PACK 2 tabs daily documented in this encounter Plan of Treatment Not on file documented as of this encounter Visit Diagnoses Not on filedocumented in this encounter Care Teams Director Of Sales Relationship Specialty Start Date End Date Alberto Pacheco [address] [place] [address] PCP - General 07/19/08 05/24/13 Charly Saxena [facility] [address] [place] [address] PCP - General Internal Medicine 05/25/13 07/16/17 Cheryl Calderon MD [facility] Adult Medicine [address] [place] [address] PCP - General Internal Medicine 07/17/17 documented as of this encounter
--- OUTSIDE RECORDS SUMMARY | 2024-06-26 09:27 | XMS_ITS | Encounter Summary ---
Author Organization [facility] Address [address] [place] [address] Care Team Providers Care Chain Maker Name Role Phone Charly Saxena Primary Care Provider [phone] Cheryl Calderon MD Primary Care Provider [phone] Encounter Details Date Type Department Care Team (Late st Contact Info) Description 06/13/2015 Orders Only [facility] Rheumatology [address] [place] [address] Abel Fierro MD [address] [place] [address] Social History Tobacco Use Types Packs/Day Years [...] of this encounter Results * Due to [place] state law, this organization might not be sharing negative HIV tests. * XRAY HAND MIN 3 VWS - BILAT FC (06/13/2015 1:30 PM EST) Anatomical Region Laterality Modality UPPER EXTREMITY Radiographic Meredith ging 06/17/2015 4:45 PM EST Narrative 06/17/2015 4:45 PM EST Bilateral hands. Comparison 04/18/2012. The prior examination there is no significant change. Left hand. There is marked destructive changes of the radiocarpal joint with prominent subchondral cystic and indistinctness of the carpal bones. The are again no longer identified. There is advanced destruction of the ulnar styloid with nonvisualization. There is advanced erosive changes of the second and third metacarpal heads. There is severe joint space narrowing at second metacarpal joint. Right hand. Metal plate transverses distal radius and carpus and third metacarpal. There is findings consistent with carpal fusion. There is advanced destructive changes throughout the radiocarpal joint, carpal and CMC joints. The carpal bones are again not individually identified. There is prior resection of the distal ulna and ulnar styloid. There are advanced erosive changes at the second and third metacarpal heads with subluxations. Conclusion no significant change Procedure Note Néstor Jenkins MD - 06/17/2015 Bilateral hands. Comparison 04/18/2012. The prior examination there is no significant change. Left hand. There is marked destructive changes of the radiocarpal joint with prominent subchondral cystic and indistinctness of the carpal bones. The are again no longer identified. There is advanced destruction of the ulnar styloid with nonvisualization. There is advanced erosive changes of the second and third metacarpal heads. There is severe joint space narrowing at second metacarpal joint. Right hand. Metal plate transverses distal radius and carpus and third metacarpal. There is findings consistent with carpal fusion. There is advanced destructive changes throughout the radiocarpal joint, carpal and CMC joints. The carpal bones are again not individually identified. There is prior resection of the distal ulna and ulnar styloid. There are advanced erosive changes at the second and third metacarpal heads with subluxations. Conclusion no significant change us Abel Fierro MD IMG XRAY NO CONTRAST ORDERABLES Final Result documented in this encounter Visit Diagnoses Diagnosis Rheumatoid arthritis involving both hands, unspecified rheumatoid factor presence- Primary Rheumatoid arthritis involving both hands, unspecified rheumatoid factor presence documented in this encounter Care Teams Chain Maker Relationship Specialty Start Date End Date Charly Saxena [facility] [place] [address] PCP - General Internal Medicine 05/25/13 07/16/17 Cheryl Calderon MD [facility] Adult Medicine [address] [place] [address] PCP - General Internal Medicine 07/17/17 documented as of this encounter
--- OUTSIDE RECORDS SUMMARY | 2024-06-26 09:27 | XMS_ITS | Encounter Summary ---
Author Organization [facility] Address [address] [place] [address] Care Team Providers Care Sound Technician Supervisor Name Role Phone Charly Saxena Primary Care Provider [phone] Cheryl Calderon MD Primary Care Provider [phone] Encounter Details Date Type Department Care Team (Late st Contact Info) Description 07/06/2015 Orders Only [facility] Rheumatology [address] [place] [address] Abel Fierro MD [address] [place] [address] Social History Tobacco Use Types Packs/Day Years [...] of this encounter Procedures * Due to [place] state law, this organization might not be sharing negative HIV tests. Procedure Name Priority Date/Time Associated Diagnosis Comments CBC INCLUDES DIFFERENTIAL AND PLATELET COUNT Routine 07/06/2015 1:10 PM EST Rheumatoid arthritis involving both feet, unspecified rheumatoid factor presence (HCC) [M06.071, M06.072] ALANINE AMINOTRANSFERASE (ALT), SERUM Routine 07/06/2015 1:10 PM EST Rheumatoid arthritis involving both feet, unspecified rheumatoid factor presence (HCC) [M06.071, M06.072] ASPARTATE AMINOTRANSFERASE (AST), SERUM Routine 07/06/2015 1:10 PM EST Rheumatoid arthritis involving both feet, unspecified rheumatoid factor presence (HCC) [M06.071, M06.072] CREATININE WITH GLOMERULAR FILTRATION RATE, ESTIMATED (EGFR) Routine 07/06/2015 1:10 PM EST Rheumatoid arthritis involving both feet, unspecified rheumatoid factor presence (HCC) [M06.071, M06.072] documented in this encounter Results * Due to [place] state law, this organization might not be sharing negative HIV tests. * CREATININE WITH GLOMERULAR FILTRATION RATE, ESTIMATED (EGFR) (07/06/2015 1:10 PM EST) Creatinine 0.90 0.50 - 0.99 mg/dL [facility] Comment: {CREATININE {[id number]) For patients >49 years of age, the reference limit for Creatinine is approximately 13% higher for people identified as -Citizen Of [place]. GFR 69 > OR = 60 mL/min/1. 73m2 [facility] Comment:{eGFR NON-AFR. AMERI CAN {[id number]) GFR () 81 > OR = 60 mL/min/1. 73m2 [facility] Comment:{eGFR AMERIC AN {[id number]) 07/06/2015 1:10 PM EST 07/07/2015 12:26 AM EST Narrative [facility] - 07/07/2015 2:20 AM EST Please note that this estimated GFR [...] needs for GFR calculation. Resulting Agency Comment [id number] us Abel Fierro MD LAB SAME DAY RESULT Final Resul t Performing Organization Address [facility] Co de Phone Number [facility] [address] [place] [address] * (ABNORMAL) ALANINE AMINOTRANSFERASE (ALT), SERUM (07/06/2015 1:10 PM EST) ALT (SGPT) 35(H) 6 - 29 U/L [facility] Comment:{ALT {[id number]) 07/06/2015 1:10 PM EST 07/07/2015 12:26 AM EST Narrative Resulting Agency Comment [id number] Abel Fierro MD LAB SAME DAY RESULT Final Resul t Performing Organization Address [facility] de Phone Number [facility] [address] [place] [address] * ASPARTATE AMINOTRANSFERASE (AST), SERUM (07/06/2015 1:10 PM EST) AST (SGOT) 24 10 - 35 U/L [facility] Comment:{AST {[id number]) 07/06/2015 1:10 PM EST 07/07/2015 12:26 AM EST Narrative Resulting Agency Comment [id number] Abel Fierro MD LAB SAME DAY RESULT Final Resul t Performing Organization Address [facility] de Phone Number [facility] [address] [place] [address] * (ABNORMAL) CBC INCLUDES DIFFERENTIAL AND PLATELET COUNT (07/06/2015 1:10 PM EST) WBC 9.5 3.8 - 10.8 Thousand/ uL [facility] Comment:{WHITE BLOOD CELL CO UNT {[id number]) RBC 5.89(H) 3.80 - 5.10 Million/u L [facility] Comment:{RED BLOOD CELL COUN T {[id number]) Hemoglobin 15.7(H) 11.7 - 15.5 g/dL [facility] Comment:{HEMOGLOBIN {[id number]) Hematocrit 48.6(H) 35.0 - 45.0 % [facility] Comment:{HEMATOCRIT {[id number]) MCV 82.5 80.0 - 100.0 fL [facility] Comment:{MCV {[id number]) MCH 26.7(L) 27.0 - 33.0 pg [facility] Comment:{MCH {[id number]) MCHC 32.3 32.0 - 36.0 g/dL [facility] Comment:{MCHC {[id number]) RDW 15.9(H) 11.0 - 15.0 % [facility] Comment:{RDW {[id number]) PLT 356 140 - 400 Thousand/ uL [facility] Comment:{PLATELET COUNT {[id number]) MPV 7.5 7.5 - 11.5 fL [facility] Comment:{MPV {[id number]) Neutrophils # 7999(H) 1500 - 7800 cells/uL [facility] Comment:{ABSOLUTE NEUTROPHIL S {[id number]) Lymphocytes # 979 850 - 3900 cells/uL [facility] Comment:{ABSOLUTE LYMPHOCYTE S {[id number]) Monocytes # 428 200 - 950 cells/uL [facility] Comment:{ABSOLUTE MONOCYTES {[id number]) Eosinophils # 48 15 - 500 cells/uL [facility] Comment:{ABSOLUTE EOSINOPHIL S {[id number]) Basophils # 48 0 - 200 cells/uL [facility] Comment:{ABSOLUTE BASOPHILS {[id number]) Neutrophils % 84.2 % [facility] Comment:{NEUTROPHILS {[id number]) Lymphocytes % 10.3 % [facility] Comment:{LYMPHOCYTES {[id number]) Monocytes % 4.5 % [facility] Comment:{MONOCYTES {[id number]) Eosinophils % 0.5 % [facility] Comment:{EOSINOPHILS {[id number]) Basophils % 0.5 % [facility] Comment:{BASOPHILS {[id number]) 07/06/2015 1:10 PM EST 07/07/2015 12:26 AM EST Narrative Resulting Agency Comment [id number] us Abel Fierro MD LAB SAME DAY RESULT Final Resul t [facility] [address] [place] [address] documented in this encounter Visit Diagnoses Diagnosis Rheumatoid arthritis involving both feet, unspecified rheumatoid factor presence (HCC) [M06.071, M06.072] documented in this encounter Care Teams Sound Technician Supervisor Relationship Specialty Start Date End Date Charly Saxena [facility] [address] [place] [address] PCP - General Internal Medicine 05/25/13 07/16/17 Cheryl Calderon MD [facility] Medicine [address] [place] [address] PCP - General Internal Medicine 07/17/17 documented as of this encounter
--- OUTSIDE RECORDS SUMMARY | 2024-06-26 09:27 | XMS_ITS | Encounter Summary ---
Author Organization [facility] Address [phone] [facility] [place] [address] Care Team Providers Care Heel Molder Name Role Phone Cash Fernandes MD Unavailable [phone] Keren Poon [facility] Primary Care Provid er Chavo Jack MD Unavailable Willi Wells MD Unavailable Jose Thakur MD Unavailable Dana Rucker CASINO PORTER Unavailable [phone] Jonathan Alvarez MD Unavailable [phone] Anival Borja MD Unavailable Lyndsay Reynoso CASINO PORTER Unavailable Gutierrez Pittman MD Unavailable [phone] Encounter Details Date Type Department Care Team (Late st Contact Info) Description 05/01/2024 Ancillary Orders Virtual Department 30 [place] [address] Argelia Taylor, JULI 10 [place], [place] [id number] Lower abdominal pain (Primary Dx); Diarrhea, unspecified type; Bloating; Change in bowel habits Social History Tobacco Use Types Packs/Day Years Used Date Smoking Tobacco: Never Smokeless Tobacco: Never Alcohol Use Standard Drinks/Week Comments Not Currently 0 (1 standard drink = 0.6 oz pur e alcohol) Home Health Assessment: Transportation Answer Date Recorded Lack of Transportation (Medical) No 01/23/2024 Lack of Transportation (Non-Medical) No 01/23/2024 Patient Unable or Declines to Respond No 01/23/2024 Child or Family Care Answer Date Record [...] with a working camera? Not on file Intimate Partner Violence Answer Date R ecorded Are you denied basic needs s uch as food, clothing, or medical care? No 04/10/2024 In the past 12 months have y ou been in a relationship with a person who hurts, threatens, or tries to control you? No 04/10/2024 Are you denied basic needs s uch as food, clothing, or medical care? No 04/10/2024 In the past 12 months have y ou been in a relationship with a person who hurts, threatens, or tries to control you? No 04/10/2024 Sex and Gender Information Value Date Recorded Sex Assigned at Female 08/18/2020 10:48 PM EDT Gender Identity Female 08/18/2020 10:48 PM EDT Sexual Orientation Straight 09/27/2020 4: 02 PM EDT documented as of this encounter Plan of Treatment Upcoming Encounters Date Type Department Care Team (Late st Contact Info) Description 06/06/2024 Procedure Pass [address] [address] 06/26/2024 2:00 PM EST Home Care Visit [facility] [address] [place] [address] Miya Monte, [address] [address] [email or web address] 06/30/2024 1:15 PM EST Home Care Visit [facility] [address] [place] [address] Miya Monte, [facility] [address] [place] [address] [email or web address] 07/01/2024 2:30 PM EST Office Visit [facility], Allergy [facility] Critical [facility] Medicine [address] [place] [address] Jose Thakur MD [address] [place] [address] 07/02/2024 2:15 AM EST Home Care Visit [facility] 30 [place] [address] Miya Monte, PATTERNMAKER ALL AROUND [address] [place] [address] 07/07/2024 3:00 AM EDT Home Care Visit [facility] 30 [place] [address] Miya Monte, PATTERNMAKER ALL AROUND [address] [place] [address] 07/09/2024 12:45 AM EDT Home Care Visit [facility] [address] [place] [phone] Merly Matos, PT [address] [place] [address] 07/30/2024 3:30 PM EDT Office Visit [address] [place] [address] Keren Poon, BUSINESS ADMINISTRATION TEACHER [address] [place] [address] 09/18/2024 2:30 PM EDT Office Visit [facility] Infectious Diseases 22 [place] [address] Dana Rucker, CASINO PORTER [address] [address] 11/26/2024 3:30 PM EDT Office Visit [facility] [address] [place] [address] Keren Poon, BUSINESS ADMINISTRATION TEACHER [address] [place] [address] [email or web address] 12/11/2024 2:00 PM EDT Appointment [facility] 30 [facility], [place] [address] Keren Poon, BUSINESS ADMINISTRATION TEACHER [address], 2nd Floor [place] [address] 06/03/2025 2:00 PM EST Office Visit [facility] [address] [place], [place] [address] Keren Poon, BUSINESS ADMINISTRATION TEACHER 170 [facility], 2nd Floor [place] [address] [email or web address] documented as of this encounter Results * XR Abdomen Series Supine with Decubitus/Erect and Single View Chest (05/01/2024 2:12 PM EST) Anatomical Region Laterality Modality Abdomen, Chest Computed Radiogr aphy 05/01/2024 3:43 PM EST Impressions 05/01/2024 3:46 PM EST 1. No acute cardiopulmonary process. 2. No evidence of obstruction or pneumoperitoneum. Narrative 05/01/2024 3:46 PM EST XR ABDOMEN SERIES SUPINE WITH DECUBITIS/ERECT AND SINGLE VIEW CHEST Referring clinician's provided indication for this examination in Epic: Outside Radiology Order; Lower abdominal pain// Diarrhea// Bloating// Change in bowel habits COMPARISON: CT ABDOMEN/PELVIS WITH CONTRAST ; XR CHEST PA AND LATERAL 2 VIEWS ; XR CHEST PORTABLE FINDINGS: CHEST:New densities in bilateral lung bases suggesting atelectasis. No definite consolidation, pleural effusion or pneumothorax. Borderline enlarged cardiac silhouette unchanged from prior. Scattered vascular calcifications. ABDOMEN: Nonobstructive bowel gas pattern. Small volume stool in the colon. No definite pneumoperitoneum. Cholecystectomy clips. Osseous demineralization. Compression deformities of T12 and L1. Spondylosis. Degenerative changes of the hips and SI joints. Vascular calcifications. Procedure Note Sanya Choi MD - 05/01/2024 XR ABDOMEN SERIES SUPINE WITH DECUBITIS/ERECT AND SINGLE VIEW CHEST Referring clinician's provided indication for this examination in Epic:Outside Radiology Order; Lower abdominal pain// Diarrhea// Bloating//Change in bowel habits COMPARISON: CT ABDOMEN/PELVIS WITH CONTRAST ; XR CHEST PA ANDLATERAL 2 VIEWS ; XR CHEST PORTABLE FINDINGS: CHEST:New densities in bilateral lung bases suggesting atelectasis. Nodefinite consolidation, pleural effusion or pneumothorax. Borderline enlarged cardiac silhouette unchanged from prior. Scatteredvascular calcifications. ABDOMEN: Nonobstructive bowel gas pattern. Small volume stool in thecolon. No definite pneumoperitoneum. Cholecystectomy clips. Osseous demineralization. Compression deformities of T12 and L1.Spondylosis. Degenerative changes of the hips and SI joints. Vascularcalcifications. IMPRESSION: 1. No acute cardiopulmonary process. 2. No evidence of obstruction or pneumoperitoneum. Argelia [place] ARCHERY INSTRUCTOR IMG XR ABDOMEN documented in this encounter Visit Diagnoses Diagnosis Lower abdominal pain Abdominal pain, other specified site Diarrhea, unspecified type Bloating Flatulence, eructation, and gas pain Change in bowel habits Other symptoms involving digestive system Lower abdominal pain- Primary Abdominal pain, other specified site Diarrhea, unspecified type Bloating Flatulence, eructation, and gas pain Change in bowel habits Other symptoms involving digestive system documented in this encounter Additional Health Concerns Infection Onset Date Last Indicated Resolved Time C. diff 04/10/2024 05/07/2024 06/06/2024 1:21 AM EST Assessment Noted Time PHQ-9 Depression Total Score: 5 05/09/19 24 6:55 AM EST PHQ-2 Depression Total Score: 2 05/09/19 24 6:55 AM EST documented as of this encounter Care Teams Heel Molder Relationship Specialty Start Date End Date Keren Poon CNP [address] [place] [address], 2nd [place] [address] [email or web address] PCP - General Family Medicine 01/31/23 Cash Fernandes MD 10 [place] [address] [email or web address] Gastroenterology 08/23/20 Chavo Jack MD 40 [place] [address] [email or web address] Insurance Assigned Provider 08/03/23 05/04/24 Willi Wells MD [address] [place], [place] [address] [address] Rheumatology 02/04/24 Jose Thakur MD [address] [place] [address] [email or web address] Research Program Assistant Pulmonary Disease 03/17/24 Dana Rucker FNP 15 [facility], 2nd [place] [address] [email or web address] Nurse Practitioner Infectious Diseases 05/21/24 Jonathan Alvarez MD [address] [place] [address], [address] [place] [address] [email or web address] Urology 05/14/23 Anival Borja MD [address] [place] [address], [address] [place] [address] [email or web address] Neurologist Neurology 01/04/23 Lyndsay Reynoso FNP [address] [place] [address] [email or web address] Nurse Practitioner Pain Medicine 05/27/22 Gutierrez Pittman MD 40 [place] [address] Termite Technician Cardiology 05/27/24 documented as of this encounter Additional Source Comments The information contained in this document represents components of the legal health record. It is not the complete legal health record.[facility]
--- OUTSIDE RECORDS SUMMARY | 2024-06-26 09:27 | XMS_ITS | Encounter Summary ---
Author Organization [facility] Address [phone] [facility] [place] [address] Care Team Providers Care Tool Procurement Coordinator Name Role Phone Patrick Sanchez MD Unavailable [phone] Cheryl Calderon MD Primary Care Provider Keren Mabry MD Unavailable Louisa Hogan MD Unavailable [phone] Charly Saxena DO Unavailable [phone] Abhinav Muhammad MD Unavailable [phone] Cheryl Giraldo NP Unavailable Wilfrido Steel MD Unavailable [phone] Sharon Martin PA-C Unavailable Ita Pineda LEARNING AND DEVELOPMENT SPECIALIST Primary Care Provider Cash Fernandes MD Unavailable [phone] Seven Menchaca MD Unavailable [phone] Chavo Jack MD Primary Care Provider [phone] Keren Poon [facility] Primary Care Provid er Chavo Jack MD Unavailable Willi Wells MD Unavailable Jose Thakur MD Unavailable Chaim Danaverenice Camilo SALES MERCHANDISING SPECIALIST Unavailable Jonathan Alvarez MD Unavailable Anival Borja MD Unavailable [place] Lyndsay Linda SALES MERCHANDISING SPECIALIST Unavailable Gutierrez Pittman MD Unavailable [phone] Encounter Details Date Type Department Care Team (Late st Contact Info) Description 08/18/2020 Procedure Pass [facility] [place] Scan [address] [address] Social History Tobacco Use Types Packs/Day Years [...] st Contact Info) Description 06/06/2024 Procedure Pass [facility], [address] [address] 06/26/2024 2:00 PM EST [facility] [address] [place] [phone] Miya Monte, [facility] [address] [place] [address] 06/30/2024 1:15 PM EST [facility] [address] [place] [phone] Miya Monte, CHAINSTITCH BINDER [address] [place] [address] [email or web address] 07/01/2024 2:30 PM EST Office Visit [facility] All[facility] Critical [facility] Medicine 10 [place] [address] Jose Thakur MD 30 [place] [address] 07/02/2024 2:15 AM EST Home Care Visit [facility] [address] [place] [phone] Miya Monte, CHAINSTITCH BINDER [address] [place] [address] [email or web address] 07/07/2024 3:00 AM EDT Home Care Visit [facility] [address] [place] [phone] Miya Monte, [facility] [address] [place] [address] [email or web address] 07/09/2024 12:45 AM EDT Home Care Visit [facility] [address] [place] [phone] Merly Matos, PT [address] [place] [address] 07/30/2024 3:30 PM EDT Office Visit [facility] [address] [place] [address] [place] [address] Keren Poon, [facility] 170 [facility], 2nd [place] [address] 09/18/2024 2:30 PM EDT Office Visit [facility] Infectious Diseases [address] [place] [address] Dana Rucker, SALES MERCHANDISING SPECIALIST [address] [address] 11/26/2024 3:30 PM EDT Office Visit [address] [place] [address] Keren Poon, ORI [address] [place] [address] 12/11/2024 2:00 PM EDT Appointment [facility] 30 [place] [address] Keren Poon, ORI [address] [place] [address] 06/03/2025 2:00 PM EST Office Visit [address] [place], [place] [address] Keren Poon, ORI [address] [place] [address] documented as of this encounter Visit Diagnoses [...] documented as of this encounter Care Teams Tool Procurement Coordinator Relationship Specialty Start Date End Date Cheryl Calderon MD [address] [place] [address] PCP - General Family Medicine 04/23/18 08/18/20 Ita Pineda CNP 40 [place], [place] [email or web address] PCP - General Internal Medicine 08/19/20 09/17/22 Chavo Jack MD 40 [place], [place] [email or web address] PCP - General Internal Medicine 09/18/22 01/30/23 Keren Poon CNP [address] [place] [address], 2nd [place] [address] [email or web address] PCP - General Family Medicine 01/31/23 Patrick Sanchez MD [address] [place] [address] Department [place] [address] [email or web address] Historical LMR Provider 09/10/14 Keren Mabry MD [address] [place] [address] Historical LMR Provider 07/10/18 Louisa Hogan MD [address] [place] [address] [email or web address] LMR Provider 07/10/1807/29 Charly Saxena DO [address] [address] Historical LMR Provider 07/10/18 Abhinav Muhammad MD 115 [facility] 104 [place] [address] [email or web address] Historical LMR Provider 07/10/18 08/22/20 Cheryl Giraldo NP 94 [place] [address] Historical LMR Provider 07/10/18 Wilfrido Steel MD [address] [place] [address] Historical LMR Provider 07/10/18 Sharon Martin PA-C 115 [facility] 104 [place] [address] [email or web address] Historical LMR Provider 07/10/18 08/22/20 Cash Fernandes MD [address] [place] [address] Gastroenterology 08/23/20 Seven Menchaca MD [address] [place] [address] [email or web address] Insurance Assigned Provider 08/04/22 08/03/23 Chavo Jack MD [address] [place] [address] Insurance Assigned Provider 08/03/23 05/04/24 Willi Wells MD [address] Vinayak 304_[place] [address] Rheumatology 02/04/24 Jose Thakur MD [address] [place] [address] Rejected Items Clerk Pulmonary Disease 03/17/24 Dana Rucker FNP 15 [facility], 2nd [place] [address] [email or web address] Nurse Practitioner Infectious Diseases 05/21/24 Jonathan Alvarez MD [address] [place] [address], [address] [place] [address] [email or web address] Urology 05/14/23 Anival Borja MD [address] [place] [address], [address] [place] [address] Neurologist Neurology 01/04/23 Lyndsay Reynoso FNP [address] [place] [address] [email or web address] Nurse Practitioner Pain Medicine 05/27/22 Gutierrez Pittman MD 40 [place] [address] Piano Assembler Cardiology 05/27/24 documented as of this encounter Additional Source Comments The information contained in this document represents components of the legal health record. It is not the complete legal health record.[facility]
--- OUTSIDE RECORDS SUMMARY | 2024-06-26 09:27 | XMS_ITS | Encounter Summary ---
Author Organization [facility] Address [phone] [facility] [place] [address] Care Team Providers Care Interstate Bus Driver Name Role Phone Cash Fernandes MD Unavailable [phone] Keren Poon [facility] Primary Care Provid er Chavo Jack MD Unavailable Willi Wells MD Unavailable Jose Thakur MD Unavailable [phone] Dana Rucker TRIMMER OPERATOR THREE KNIFE Unavailable Jonathan Alvarez MD Unavailable [phone] Anival Borja MD Unavailable Lyndsay Reynoso TRIMMER OPERATOR THREE KNIFE Unavailable Gutierrez Pittman MD Unavailable [phone] Encounter Details Date Type Department Care Team (Late st Contact Info) Description 04/10/2024 Procedure Pass [facility], [place] Scan - [address] [address] Social History Tobacco Use Types Packs/Day Years [...] st Contact Info) Description 06/06/2024 Procedure Pass [address] [address] 06/26/2024 2:00 PM EST [facility] [address] [place] [address] Miya Monte, [facility] 168 [place] [address] 06/30/2024 1:15 PM EST [facility] [address] [place] [address] Miya Monte, [address] [address] 07/01/2024 2:30 PM EST Office Visit [facility], Allergy [facility] Critical Care Medicine [address] [place] [address] Jose Thakur MD [address] [place] [address] 07/02/2024 2:15 AM EST [facility] [address] [place] [address] Miya Monte, GUYLINE OPERATOR [address] [place] [address] 07/07/2024 3:00 AM EDT Home Care Visit [facility] [address] [place] [phone] Miya Monte, GUYLINE OPERATOR 168 [place] [address] 07/09/2024 12:45 AM EDT Home Care Visit [facility] [address] [place] [phone] Merly Matos, PT 168 [place] [address] 07/30/2024 3:30 PM EDT Office Visit [address] [place] [address] Keren Poon, PRINT DEVELOPER AUTOMATIC [address] [place] [address] 09/18/2024 2:30 PM EDT Office Visit [facility] Infectious Diseases 22 [place] [address] Dana Rucker, TRIMMER OPERATOR THREE KNIFE [address] [address] 11/26/2024 3:30 PM EDT Office Visit [address] [place] [address] Keren Poon, ORI [address] [place] [address] 12/11/2024 2:00 PM EDT Appointment [facility] 30 [place] [address] Cleve Kerenelsie Glaser CNP 170 [facility], [address] [place] [address] [email or web address] 06/03/2025 2:00 PM EST Office Visit [facility] [address] [place] [address] Dr [place] [address] Keren Poon CNP 170 [facility], [address] [place] [address] documented as of this encounter Visit Diagnoses [...] documented as of this encounter Care Teams Interstate Bus Driver Relationship Specialty Start Date End Date Keren Poon CNP 170 [facility], [address] [place] [address] PCP - General Family Medicine 01/31/23 Cash Fernandes MD [address] [place] [phone] Gastroenterology 08/23/20 Chavo Jack MD [address] [place] [address] [email or web address] Insurance Assigned Provider 08/03/23 05/04/24 Willi Wells MD [address] Vinayak 304_[place] [address] Rheumatology 02/04/24 Jose Thakur MD 30 [place] [address] Cake Stripper Pulmonary Disease 03/17/24 Dana Rucker FNP [address] [facility], 2nd [place] [address] [email or web address] Nurse Practitioner Infectious Diseases 05/21/24 Jonathan Alvarez MD [address] [place] [address], [address] [place] [address] [email or web address] Urology 05/14/23 Anival Borja MD [address] [place] [address], [address] [place] [address] Neurologist Neurology 01/04/23 Lyndsay Reynoso FNP [address] [place] [address] [email or web address] Nurse Practitioner Pain Medicine 05/27/22 Gutierrez Pittman MD 40 [place] [phone] Manager Integration Cardiology 05/27/24 documented as of this encounter Additional Source Comments The information contained in this document represents components of the legal health record. It is not the complete legal health record.[facility]
--- OUTSIDE RECORDS SUMMARY | 2024-06-26 09:27 | XMS_ITS | Encounter Summary ---
Author Organization [facility] Address 5 [place] [address] Care Team Providers Care Geotechnical Department Manager Name Role Phone Charly Saxena Primary Care Provider Cheryl Calderon MD Primary Care Provider [phone] Encounter Details Date Type Department Care Team (Late st Contact Info) Description 10/15/2013 Orders Only [facility] Rheumatology [address] [place] [address] Abel Fierro MD 5 [place] [address] Social History Tobacco Use Types Packs/Day Years [...] documented as of this encounter Visit Diagnoses Diagnosis Rheumatoid arthritis(714.0)- Primary Rheumatoid arthritis documented in this encounter Care Teams Geotechnical Department Manager Relationship Specialty Start Date End Date Charly Saxena [facility] [address] [place] [address] PCP - General Internal Medicine 05/25/13 07/16/17 Cheryl Calderon MD [facility] Adult Medicine [address] [place] [address] PCP - General Internal Medicine 07/17/17 documented as of this encounter
--- OUTSIDE RECORDS SUMMARY | 2024-06-26 09:27 | XMS_ITS | Encounter Summary ---
Author Organization [facility] Address [phone] [facility] [place] [address] Care Team Providers Care Software Development Analyst Name Role Phone Cash Fernandes MD Unavailable [phone] Keren Poon [facility] Primary Care Provid er Willi Wells MD Unavailable Jose Thakur MD Unavailable Dana Rucker METAL PATTERN MAKER Unavailable [phone] Jonathan Alvarez MD Unavailable [phone] Anival Borja MD Unavailable Lyndsay Reynoso METAL PATTERN MAKER Unavailable [phone] Gutierrez Pittman MD Unavailable [phone] Encounter Details Date Type Department Care Team (Late st Contact Info) Description 05/09/2024 Procedure Pass [facility], Ct Scan - [address] [address] Social History Tobacco Use Types Packs/Day Years [...] as food, clothing, or medical care? No 05/07/2024 In the past 12 months have y ou been in a relationship with a person who hurts, threatens, or tries to control you? No 05/07/2024 Are you denied basic needs s uch as food, clothing, or medical care? No 05/07/2024 In the past 12 months have y ou been in a relationship with a person who hurts, threatens, or tries to control you? No 05/07/2024 Sex and Gender Information Value Date Recorded Sex Assigned at Female 08/18/2020 10:48 PM EDT Gender Identity Female 08/18/2020 10:48 PM EDT Sexual Orientation Straight 09/27/2020 4: 02 PM EDT documented as of this encounter Plan of Treatment Upcoming Encounters Date Type Department Care Team (Late st Contact Info) Description 06/06/2024 Procedure Pass [address] [address] 06/26/2024 2:00 PM EST Home Care Visit [facility] [address] [place] [address] Miya Monte, [address] [address] 06/30/2024 1:15 PM EST Home Care Visit [facility] [address] [place] [address] Miya Monte, [facility] [address] [place] [address] 07/01/2024 2:30 PM EST Office Visit [facility] [address] [place] [address] Jose Thakur MD [address] [place] [address] 07/02/2024 2:15 AM EST [facility] [address] [place] [address] Miya Monte, ARTIFICIAL FLOWERS STARCHER [address] [place] [address] 07/07/2024 3:00 AM EDT Home Care Visit [facility] [address] [place] [address] Miya Monte, ARTIFICIAL FLOWERS STARCHER [address] [place] [address] 07/09/2024 12:45 AM EDT Home Care Visit [facility] [address] [place] [address] Carlo Merly, PT [address] [place] [address] 07/30/2024 3:30 PM EDT Office Visit [address] [place] [address] Keren Poon, TAX APPRAISER [address] [address] 09/18/2024 2:30 PM EDT Office Visit [facility] Infectious Diseases [address] [place] [address] Dana Rucker, METAL PATTERN MAKER [address] [address] 11/26/2024 3:30 PM EDT Office Visit [address] [place] [address] Keren Poon, ORI [address] [address] 12/11/2024 2:00 PM EDT Appointment [facility] [address] [place] [address] Keren Poon, ORI [address] [place] [address] 06/03/2025 2:00 PM EST Office Visit [facility] [address] [place] [address] [place] [address] Cleve Kerenelsie Glaser CNP [address] [place], [place] [address] documented as of this encounter Visit Diagnoses Not on filedocumented in this encounter Additional Health Concerns Infection Onset Date Last Indicated Resolved Time C. diff 04/10/2024 05/07/2024 06/06/2024 1:21 AM EST Assessment Noted Time PHQ-9 Depression Total Score: 5 05/09/19 6:55 AM EST PHQ-2 Depression Total Score: 2 05/09/19 6:55 AM EST documented as of this encounter Care Teams Software Development Analyst Relationship Specialty Start Date End Date CleveKeren, ORI [address] [place] [address] PCP - General Family Medicine 01/31/23 Cash Fernandes MD [address] [place] [address] Gastroenterology 08/23/20 Willi Wells MD [address] [place] [address]_[place] [address] Rheumatology 02/04/24 Jose Thakur MD [address] [place] [address] Blind Slat Stapling Machine Operator Pulmonary Disease 03/17/24 Dana Rucker FNP 15 [facility], 2nd [place] [address] [email or web address] Nurse Practitioner Infectious Diseases 05/21/24 Jonathan Alvarez MD [address] [place] [address], [address] [place] [address] Urology 05/14/23 Anival Borja MD [address] [place] [address], [address] [place] [address] Neurologist Neurology 01/04/23 Lyndsay Reynoso FNP 10 [facility] [address] [place] [address] [email or web address] Nurse Practitioner Pain Medicine 05/27/22 Gutierrez Pittman MD [address] [place] [address] [employer] Specialist Cardiology 05/27/24 documented as of this encounter Additional Source Comments The information contained in this document represents components of the legal health record. It is not the complete legal health record.[facility]
--- OUTSIDE RECORDS SUMMARY | 2024-06-26 09:27 | XMS_ITS | Encounter Summary ---
Author Organization [facility] Address [address] [place] [address] Care Team Providers Care Work And Family Life Consultant Name Role Phone Charly Saxena Primary Care Provider [phone] Cheryl Calderon MD Primary Care Provider [phone] Encounter Details Date Type Department Care Team (Late st Contact Info) Description 01/18/2016 Orders Only [facility] Rheumatology [address] [place] [address] Abel Fierro MD [address] [place] [address] Social History Tobacco Use Types Packs/Day Years [...] this encounter Procedures * Due to [place] state law, this organization might not be sharing negative HIV tests. Procedure Name Priority Date/Time Associated Diagnosis Comments CBC INCLUDES DIFFERENTIAL AND PLATELET COUNT Routine 01/18/2016 1:17 PM EDT Rheumatoid arthritis involving multiple sites with positive rheumatoid factor (HCC) [M05.79] ALANINE AMINOTRANSFERASE (ALT), SERUM Routine 01/18/2016 1:17 PM EDT Rheumatoid arthritis involving multiple sites with positive rheumatoid factor (HCC) [M05.79] ASPARTATE AMINOTRANSFERASE (AST), SERUM Routine 01/18/2016 1:17 PM EDT Rheumatoid arthritis involving multiple sites with positive rheumatoid factor (HCC) [M05.79] CREATININE WITH GLOMERULAR FILTRATION RATE, ESTIMATED (EGFR) Routine 01/18/2016 1:17 PM EDT Rheumatoid arthritis involving multiple sites with positive rheumatoid factor (HCC) [M05.79] documented in this encounter Results * Due to [place] state law, this organization might not be sharing negative HIV tests. * CREATININE WITH GLOMERULAR FILTRATION RATE, ESTIMATED (EGFR) (01/18/2016 1:17 PM EDT) Creatinine 0.79 0.50 - 0.99 mg/dL [facility] Comment: {CREATININE {[id number]) For patients >49 years of age, the reference limit for Creatinine is approximately 13% higher for people identified as -Zimbabwean. GFR 81 > OR = 60 mL/min/1. 73m2 [facility] Comment:{eGFR NON-AFR. AMERI CAN {[id number]) GFR () 94 > OR = 60 mL/min/1. 73m2 [facility] Comment:{eGFR AMERIC AN {[id number]) 01/18/2016 1:17 PM EDT 01/18/2016 9:39 PM EDT Narrative [facility] - 01/19/2016 1:36 AM EDT Please note that this estimated [...] needs for GFR calculation. Resulting Agency Comment [id number] us Abel Fierro MD LAB SAME DAY RESULT Final Resul t [facility] [address] [place] [address] * (ABNORMAL) ALANINE AMINOTRANSFERASE (ALT), SERUM (01/18/2016 1:17 PM EDT) ALT (SGPT) 48(H) 6 - 29 U/L [facility] Comment:{ALT {[id number]) 01/18/2016 1:17 PM EDT 01/18/2016 9:39 PM EDT Narrative Resulting Agency Comment [id number] us Abel Fierro MD LAB SAME DAY RESULT Final Resul t Performing Organization Address City/[facility] Co de Phone Number [facility] [address] [place] [address] * ASPARTATE AMINOTRANSFERASE (AST), SERUM (01/18/2016 1:17 PM EDT) AST (SGOT) 27 10 - 35 U/L [facility] Comment:{AST {[id number]) 01/18/2016 1:17 PM EDT 01/18/2016 9:39 PM EDT Narrative Resulting Agency Comment [id number] us Abel Fierro MD LAB SAME DAY RESULT Final Resul t Performing Organization Address [facility] Co de Phone Number [facility] [address] [place] [address] * (ABNORMAL) CBC INCLUDES DIFFERENTIAL AND PLATELET COUNT (01/18/2016 1:17 PM EDT) WBC 11.4(H) 3.8 - 10.8 Thousand/ uL [facility] Comment:{WHITE BLOOD CELL CO UNT {[id number]) RBC 5.40(H) 3.80 - 5.10 Million/u L [facility] Comment:{RED BLOOD CELL COUN T {[id number]) Hemoglobin 14.3 11.7 - 15.5 g/dL [facility] Comment:{HEMOGLOBIN {[id number]) Hematocrit 45.8(H) 35.0 - 45.0 % [facility] Comment:{HEMATOCRIT {[id number]) MCV 84.8 80.0 - 100.0 fL [facility] Comment:{MCV {[id number]) MCH 26.5(L) 27.0 - 33.0 pg [facility] Comment:{MCH {[id number]) MCHC 31.3(L) 32.0 - 36.0 g/dL [facility] Comment:{MCHC {[id number]) RDW 16.5(H) 11.0 - 15.0 % [facility] Comment:{RDW {[id number]) PLT 289 140 - 400 Thousand/ uL [facility] Comment:{PLATELET COUNT {[id number]) MPV 8.4 7.5 - 11.5 fL [facility] Comment:{MPV {[id number]) Neutrophils # 9793(H) 1500 - 7800 cells/uL [facility] Comment:{ABSOLUTE NEUTROPHIL S {[id number]) Lymphocytes # 809(L) 850 - 3900 cells/uL [facility] Comment:{ABSOLUTE LYMPHOCYTE S {[id number]) Monocytes # 638 200 - 950 cells/uL [facility] Comment:{ABSOLUTE MONOCYTES {[id number]) Eosinophils # 91 15 - 500 cells/uL [facility] Comment:{ABSOLUTE EOSINOPHIL S {[id number]) Basophils # 68 0 - 200 cells/uL [facility] Comment:{ABSOLUTE BASOPHILS {[id number]) Neutrophils % 85.9 % [facility] Comment:{NEUTROPHILS {[id number]) Lymphocytes % 7.1 % [facility] Comment:{LYMPHOCYTES {[id number]) Monocytes % 5.6 % [facility] Comment:{MONOCYTES {[id number]) Eosinophils % 0.8 % [facility] Comment:{EOSINOPHILS {[id number]) Basophils % 0.6 % [facility] Comment:{BASOPHILS {[id number]) 01/18/2016 1:17 PM EDT 01/18/2016 9:39 PM EDT Narrative Resulting Agency Comment [id number] us Abel Fierro MD LAB SAME DAY RESULT Final Resul t [facility] [address] [place] [address] documented in this encounter Visit Diagnoses Diagnosis Rheumatoid arthritis involving multiple sites with positive rheumatoid factor (HCC) [M05.79] documented in this encounter Care Teams Work And Family Life Consultant Relationship Specialty Start Date End Date Charly Saxena [facility] [address] [place] [address] PCP - General Internal Medicine 05/25/13 07/16/17 Cheryl Calderon MD [facility] Medicine [address] [place] [address] PCP - General Internal Medicine 07/17/17 documented as of this encounter
--- OUTSIDE RECORDS SUMMARY | 2024-06-26 09:27 | XMS_ITS | Encounter Summary ---
Author Organization [facility] Address [address] [place] [address] Care Team Providers Care Shredded Filler Cutter Operator Name Role Phone Charly Saxena Primary Care Provider [phone] Cheryl Calderon MD Primary Care Provider [phone] Reason for Visit * Reason Comments F/u From OV Post injection f/u Encounter Details Date Type Department Care Team (Late st Contact Info) Description 10/24/2015 Telephone [facility] Rheumatology [address] [place] [address] Abel Fierro MD 5 [place] [address] F/u From OV (Post injection f/u ) Social History Tobacco Use Types Packs/Day Years [...] encounter Miscellaneous Notes * Telephone Encounter - Dayana Kidd - 11/02/2015 4:49 PM EDT Call to patient, she stated she is unsure if the injection has helped, but is still having some pain in the area. She had been in the hospital due to Shingles on the same hip as injection was given. She will give us a call in another week if the pain continues. Provider: Dr. Fierro Date of Injection 10/10/15 Impression: 1. Rheumatoid arthritis seropositive. This appears stable with current medications. We will check laboratory studies today and 3 months and have her come back in 6 months or sooner if needed. 2. Left trochanteric bursitis. She had marked tenderness over the trochanteric bursa. She has perhaps slight decreased range of motion of the hip and previous x-rays did show osteoarthritis of the left hip, mild. After discussion we agreed to treat her with local injection for the bursitis and thenreevaluate if not significantly improved. 3. Glucocorticoid-induced osteoporosis. See below. 4. Osteoarthritis left hip. No intervention. Plan: Continue current regimen. Left trochanteric bursa was injected with 2 mL 1% lidocaine and 80 mg methylprednisolone acetate after sterile prep and written consent. Patient tolerated the procedure well. I will ask my staff to call her in 2 weeks. Return visit as above. Note that in view of the chronic prednisone therapy and fracture, would be appropriate to treat with osteoporosis medication. In the past she has taken alendronate for short periods. I ask that Dr. Saxena follow up as appropriate. * Telephone Encounter - Adela Young - 10/24/2015 10:00 AM EDT LMOM for patient to give our office a call back. Last seen 10/10/[address] Fierro Impression: 1. Rheumatoid arthritis seropositive. This appears stable with current medications. We will check laboratory studies today and 3 months and have her come back in 6 months or sooner if needed. 2. Left trochanteric bursitis. She had marked tenderness over the trochanteric bursa. She has perhaps slight decreased range of motion of the hip and previous x-rays did show osteoarthritis of the left hip, mild. After discussion we agreed to treat her with local injection for the bursitis and thenreevaluate if not significantly improved. 3. Glucocorticoid-induced osteoporosis. See below. 4. Osteoarthritis left hip. No intervention. Plan: Continue current regimen. Left trochanteric bursa was injected with 2 mL 1% lidocaine and 80 mg methylprednisolone acetate after sterile prep and written consent. Patient tolerated the procedure well. I will ask my staff to call her in 2 weeks. Return visit as above. Note that in view of the chronic prednisone therapy and fracture, would be appropriate to treat with osteoporosis medication. In the past she has taken alendronate for short periods. I ask that Dr. Saxena follow up as appropriate. documented in this encounter Plan of Treatment Not on file documented as of this encounter Visit Diagnoses Not on filedocumented in this encounter Care Teams Shredded Filler Cutter Operator Relationship Specialty Start Date End Date Charly Saxena [facility] [address] [place] [address] PCP - General Internal Medicine 05/25/13 07/16/17 Cheryl Calderon MD [facility] Medicine [address] [place] [address] PCP - General Internal Medicine 07/17/17 documented as of this encounter
--- OUTSIDE RECORDS SUMMARY | 2024-06-26 09:27 | XMS_ITS | Encounter Summary ---
Author Organization [facility] Address [phone] Critical access hospital [employer] [place] [address] Care Team Providers Care Tire Maker Name Role Phone Cash Fernandes MD Unavailable [phone] Keren Poon [facility] Primary Care Provid er Chavo Jack MD Unavailable Willi Wells MD Unavailable Jose Thakur MD Unavailable [phone] Dana Rucker [employer] OFFICER Unavailable [phone] Jonathan Alvarez MD Unavailable [phone] Anival Borja MD Unavailable Lyndsay Reynoso [employer] OFFICER Unavailable Gutierrez Pittman MD Unavailable [phone] Encounter Details Date Type Department Care Team (Latest Contact Info) Description 04/30/2024 Transcribe Orders Virtual Department [address] [place] [address] Argelia Taylor, JULI [address] [place], [place] [id number] Lower abdominal pain (Primary Dx); Diarrhea, unspecified [...] st Contact Info) Description 06/06/2024 Procedure Pass [address] [address] 06/26/2024 2:00 PM EST Home Care Visit [facility] [address] [place] [address] Miya Monte, [address] [address] 06/30/2024 1:15 PM EST Home Care Visit [facility] [address] [place] [address] Miya Monte, [facility] [address] [place] [address] 07/01/2024 2:30 PM EST Office Visit [facility], Allergy [facility] Critical Care Medicine [address] [place] [address] Jose Thakur MD [address] [place] [address] 07/02/2024 2:15 AM EST Home Care Visit [facility] [address] [place] [address] Miya Monte, TEACHER COUNSELOR [address] [place] [address] 07/07/2024 3:00 AM EDT Home Care Visit [facility] [address] [place] [address] Miya Monte, TEACHER COUNSELOR [address] [place] [address] 07/09/2024 12:45 AM EDT Home Care Visit [facility] [address] [place] [phone] Merly Matos, PT [address] [place] [address] 07/30/2024 3:30 PM EDT Office Visit [address] [place] [address] Keren Poon, COUNTER WEIGHER [address] [place] [address] 09/18/2024 2:30 PM EDT Office Visit [facility] Infectious Diseases [address] [place] [address] Dana Rucker, NAV[employer] OFFICER [address] [address] 11/26/2024 3:30 PM EDT Office Visit [facility] [address] [place] [address] Keren Poon, COUNTER WEIGHER [address] [place] [address] [email or web address] 12/11/2024 2:00 PM EDT Appointment [facility] [address] [place] [address] Keren Poon CNP 170 [facility], [address] [place] [address] 06/03/2025 2:00 PM EST Office Visit [facility] [address] [place] [address] [place] [address] Keren Poon CNP [address] [place] [address] documented as of this encounter Visit Diagnoses Diagnosis Lower abdominal pain- Primary Abdominal pain, other [...] documented as of this encounter Care Teams Tire Maker Relationship Specialty Start Date End Date Keren Poon CNP [address] [place] [address], [address] [place] [address] PCP - General Family Medicine 01/31/23 Cash Fernandes MD [address] [place] [address] Gastroenterology 08/23/20 Chavo Jack MD [address] [place] [address] [email or web address] Insurance Assigned Provider 08/03/23 05/04/24 Willi Wells MD [address]_[place] [address] Rheumatology 02/04/24 Jose Thakur MD [address] [place] [address] Volunteer Recruitment Coordinator Pulmonary Disease 03/17/24 Dana Rucker FNP 15 [facility], 2nd [place] [address] [email or web address] Nurse Practitioner Infectious Diseases 05/21/24 Jonathan Alvarez MD [address] [place] [address], [address] [place] [address] [email or web address] [email or web address] 05/14/23 Anival Borja MD [address] [place] [address], [address] [place] [address] Neurologist Neurology 01/04/23 Lyndsay Reynoso FNP [address] [place] [address] [email or web address] Nurse Practitioner Pain Medicine 05/27/22 Gutierrez Pittman MD [address] [place] [address] [employer] Cardiology 05/27/24 documented as of this encounter Additional Source Comments The information contained in this document represents components of the legal health record. It is not the complete legal health record[facility]
--- OUTSIDE RECORDS SUMMARY | 2024-06-26 09:27 | XMS_ITS | Clinical Summary ---
Author Organization [facility] Address [phone] Critical [place] [address] Care Team Providers Care Tmd Teacher Assistant Name Role Phone Cash Fernandes MD Unavailable [phone] Keren Poon [facility] Primary Care Provid er Willi Wells MD Unavailable Jose Thakur MD Unavailable [phone] Dana Rucker RN OUTPATIENT SURGERY Unavailable Jonathan Alvarez MD Unavailable [phone] Anival Borja MD Unavailable [phone] Lyndsay Reynoso RN OUTPATIENT SURGERY Unavailable Gutierrez Pittman MD Unavailable [phone] Allergies Active Allergy Reactions Criticality Noted Date Comments Codeine Itching,Swelling,Oth er (See Comments) 08/26/2008 Pwasbii-Xyxqlkubtl-Eax-Caff 08/21/19 21 Gold Salts Hives 08/26/2008 Nitrofurantoin Monohyd/M-Cryst Nausea and/or Vomiting Low 11/11/2020 Sulfa (Sulfonamide Antibiotics) Rash Low 08/26/2008 Medications Medication Sig Dispensed Refills Start Date End Date Status ELIQUIS 5 mg tablet Take 5 mg by mouth 2 (two) times a day. 1 Active BIOTIN ORAL Take 1 capsule by mouth daily. Active diphenhydramine HCl (BENADRYL ORAL) Take by mouth daily as needed. Active OXYGEN-AIR DELIVERY SYSTEMS MISC 2 Liter NEEDED (route: Oxygen) 1 Active alendronate (FOSAMAX) 70 MG tablet TAKE ONE TABLET BY MOUTH EVERY WEEK Active folic acid (FOLVITE) 1 MG tablet Take 1 tablet by mouth every morning. 3 Active methotrexate 2.5 MG Oral tablet TAKE 6 TABLETS BY MOUTH EVERY WEEK 3 Active ondansetron (ZOFRAN-ODT) 4 MG disintegrating tablet DISSOLVE ONE TABLET BY MOUTH EVERY 8 HOURS NEEDED FOR NAUSEA AND VOMITING Active furosemide (LASIX) 20 MG tablet Take 1 tablet by mouth every morning. 4 Active escitalopram oxalate (LEXAPRO) 10 MG tabletIndications: Depressive disorder take one tablet by mouth every day 30 tablet 11 4 Active predniSONE (DELTASONE) 2.5 MG tablet Take 2.5 mg by mouth daily. 4 Active methenamine (HIPREX) 1 gram tablet TAKE ONE TABLET BY MOUTH TWICE A DAY WITH CRANBERRY PILL OR VITAMIN-C FOR UTI PREVENTION. HOLD IF STARTING ABX 4 Active losartan (COZAAR) 25 MG tabletIndications: Primary hypertension take one tablet by mouth once daily 90 tablet 1 4 Active levothyroxine (SYNTHROID, LEVOTHROID) 88 MCG tabletIndications: Hypothyroidism, unspecified type take one tablet by mouth every day 90 tablet 3 4 Active potassium chloride SA (KLOR-CON M20) 20 MEQ ER tabletIndications: Hypokalemia Take 1 tablet (20 mEq total) by mouth 2 (two) times a day. 180 tablet 3 4 Active cholecalciferol (VITAMIN D3) 2,000 unit capsule Take 1 Units by mouth daily. Active azelastine-flutica sone (DYMISTA) 137-50 mcg/spray [place]ott 1 spray by Each Nare route 2 (two) times a day. 23 g 11 4 Active estradioL (ESTRACE) 0.01 % (0.1 mg/gram) vaginal cream Place 2 g vaginally 2 (two) times a week. Apply to urethra. 42.5 g 1 4 Active traMADoL (ULTRAM) 50 mg tabletIndications: Rheumatoid arthritis involving multiple sites, unspecified whether rheumatoid factor present Take 1 tablet (50 mg total) by mouth every 8 (eight) hours as needed. 21 tablet 5 Active riTUXimab (RITUXAN) 10 mg/mL injection Inject into the vein every 6 (six) months. Active dicyclomine (BENTYL) 20 mg tablet Take 20 mg by mouth 3 (three) times a day as needed (abdominal pain). 5 Active lactobacillus rhamnosus, GG, (CULTURELLE) 10 billion cell capsule Take 1 capsule by mouth 2 (two) times a day. 60 capsule 5 Active cyclobenzaprine (FLEXERIL) 5 MG tablet Take 5 mg by mouth 3 (three) times a day as needed. 5 Active LORazepam (ATIVAN) 0.5 MG tabletIndications: Anxiety state Take 1 tablet (0.5 mg total) by mouth 2 (two) times a day as needed for anxiety. 56 tablet 5 Active carvedilol (COREG) 12.5 MG tablet TAKE ONE TABLET BY MOUTH TWICE A DAY WITH MEALS 180 tablet 3 5 Active benzonatate (TESSALON) 100 MG capsuleIndications :Acute cough Take 1 capsule (100 mg total) by mouth 3 (three) times a day as needed for cough. 20 capsule 5 Active vancomycin (VANCOCIN) 125 MG capsule Take 1 capsule (125 mg total) by mouth every 3 (three) days. 10 capsule 5 5 12/17/19 25 Active carvedilol (COREG) 12.5 MG tablet take one tablet by mouth twice a day with meals 180 tablet 3 4 06/11/19 25 Discontinued(Reo rder) LORazepam (ATIVAN) 0.5 MG tabletIndications: Anxiety state Take 1 tablet (0.5 mg total) by mouth 2 (two) times a day as needed for anxiety. 56 tablet 4 06/07/19 25 Discontinued(Reo rder) benzonatate (TESSALON) 100 MG capsuleIndications :Acute cough Take 1 capsule (100 mg total) by mouth 3 (three) times a day as needed for cough. 20 capsule 5 06/11/19 25 Discontinued(Reo rder) vancomycin (VANCOCIN) 125 MG capsuleIndications :C. difficile colitis When you finish the 4 times daily vancomycin, start the following taper: Take 2 tabs by mouth daily for 7 days Then take 1 tab daily by mouth for 7 days Then take 1 tab every other day for 4 doses Then take 1 tab every 3 days for 4 doses 29 capsule 5 06/19/19 25 Discontinued Active Problems Problem Noted Date Diagnosed Date Aortic insufficiency 05/27/2024 Assessment & Plan (06/06/2024 12:33 PM EST): Echocardiogram done 10/01/23 w/moderate aortic regurgitation, advanced from previous imaging (2019). No audible murmur, asymptomatic. Plan for repeat echo in 1 year (due 09/2025). Recurrent urinary tract infection 05/22/2024 Assessment & Plan (06/19/2024 3:41 PM EST): Continue methenamine with vitamin C along with lifestyle modifications. Reviewed the need for judicious use of antibiotics and that pt should only have urine culture if she is feeling symptomatic or there is plan for instrumentation. Reviewed the standing order for urinalysis with reflex to culture. Unfortunately pt is unable to tolerate Macrobid due to nausea/vomiting. Reviewed that fever, shaking chills, severe abdominal pain, and/or severe flank pain would warrant emergent evaluation. Assessment & Plan (05/22/2024 9:01 AM EST): Continue methenamine. Encouraged to take with 500mg vitamin C to ensure acidification. Placed order for standing urinalysis with reflex to culture given pt's history of C diff and need to judiciously use antibiotics. Reviewed that she is only to use this order if she feels symptomatic and she is to contact the office should she need this. Unfortunately, she's unable to tolerate nitrofurantoin due to nausea/vomiting. If she develops fever, shaking chills, severe abdominal pain, or severe flank pain, she should seek urgent evaluation. Discussed lifestyle measures including taking a break from wearing a pad or brief daily, wiping from front to back, use of a connor bottle (such as the Kitty [employer] brand as pt has mobility concerns), toileting every 2 hours during the day, limiting caffeine/carbonation, and adequate hydration. Urinary incontinence 05/22/2024 Assessment & Plan (06/06/2024 12:16 PM EST): Has urge incontinence, complicated by her mobility issues, wears adult diapers. Assessment & Plan (05/22/2024 8:58 AM EST): Referred to pelvic floor PT Atrophic vaginitis 05/14/2024 Assessment & Plan (06/06/2024 12:13 PM EST): Stable, continues on topical estrogen cream twice/week. Assessment & Plan (05/14/2024 6:21 PM EST): She will continue with the estrogen cream which may help reduce the risk of future UTIs. A referral to a [facility] will be made. Dyspnea on exertion 01/02/2024 Assessment & Plan (06/06/2024 12:39 PM EST): THOMPSON has improved with higher dose of lasix, increased 10>>20mg last year. Appears euvolemic on exam. Echo 10/01/23 w/ LVEF 60-65%. Assessment & Plan (01/09/2024 12:59 PM EDT): A pulmonary function test (PFT) will be ordered to rule out chronic lung conditions such as asthma, COPD, emphysema, and other chronic lung diseases. This test will also measure her oxygen levels. A referral to a [facility] will be made today. If there is no improvement, a follow-up with the [facility] is recommended. Allergic rhinitis 11/21/2023 Assessment & Plan (11/21/2023 10:31 PM EDT): Flonase (fluticasone) nasal spray rx renewed. Instructions for the Flonase were updated to 2 sprays in each nostril to ensure proper insurance coverage. Rheumatoid episcleritis 11/21/2023 Assessment & Plan (11/21/2023 10:33 PM EDT): She has arthritis in the eye and uses prednisolone drops as needed. This usually resolves the issue within a couple of days. Secondary hypercoagulable state 09/05/2023 Assessment & Plan (06/06/2024 12:25 PM EST): Re: PAF. Stable on Eliquis. Had blood-streaked stools related to recent C-diff colitis but this has resolved. Assessment & Plan (11/21/2023 10:35 PM EDT): Re: PAF. Stable on Eliquis. No s/sx of abnormal bleeding. Assessment & Plan (09/09/2023 8:44 AM EDT): Re: PAF. Stable on Eliquis. No s/sx of abnormal bleeding. Atherosclerosis of aorta 09/05/2023 Anxiety disorder 05/23/2023 Assessment & Plan (06/06/2024 12:43 PM EST): Chronic anxiety w/ insomnia managed with PRN lorazepam and cannabis gummies. Continues on escitalopram re: anxiety and co-morbid depression. Assessment & Plan (05/12/2024 11:01 AM EST): Continue home medications Assessment & Plan (05/11/2024 11:50 AM EST): Continue home medications Assessment & Plan (05/10/2024 10:34 AM EST): As needed lorazepam. Assessment & Plan (01/09/2024 12:59 PM EDT): A refill for lorazepam has been requested and will be sent to her pharmacy. Assessment & Plan (11/21/2023 10:37 PM EDT): Chronic anxiety w/ insomnia managed with PRN lorazepam and cannabis gummies. Continues on escitalopram re: anxiety and co-morbid depression. Rx renewed, [facility] reviewed - no concerns. Assessment & Plan (09/09/2023 8:45 AM EDT): Chronic anxiety w/ insomnia managed with PRN lorazepam and cannabis gummies. Continues on escitalopram re: anxiety and co-morbid depression. Rx renewed, [facility] reviewed - no concerns. Assessment & Plan (06/07/2023 12:39 PM EST): Chronic anxiety w/ insomnia managed with PRN lorazepam and cannabis gummies. Continues on escitalopram re: anxiety and co-morbid depression. Discussed that the best outcomes, with lowest chance of remission occurs with a combination of medication, counseling and good self-care: healthy eating, adequate sleep, avoiding negative psychoactive substances [like alcohol, caffeine] and regular exercise. Occipital neuralgia of left side 05/09/2023 Assessment & Plan (06/06/2024 12:05 PM EST): Left sided face and head pain w/ dx: occipital neuralgia. S/p nerve ablation last year without improvement. Recently w/ recurrence of pinched nerve in her neck. [place]ed by neurology (Dr Borja) and [place] Assessment & Plan (09/09/2023 8:42 AM EDT): Left sided face and head pain w/ dx: occipital neuralgia. Recently had nerve ablation performed on the left side, no improvement noted from this procedure yet. Followed by neurology (Dr Borja) and also [place] Assessment & Plan (06/07/2023 12:36 PM EST): Left sided face and head pain w/ dx: occipital neuralgia over the last 9 months. Followed by neurology (Dr Borja) and also [place] Awaiting insurance approval for nerve ablation per her report. Assessment & Plan (05/23/2023 2:20 PM EST): Left sided face and head pain w/ dx: occipital neuralgia over the last 8-9 months. Followed by neurology (Dr Borja) and also [place] Cervical radiculopathy 05/25/2022 Assessment & Plan (06/06/2024 12:08 PM EST): Neck stiffness with muscle spasm and pinched nerve. Improved with rest, heat and cyclobenzaprine PRN. Continue conservative care at home. Assessment & Plan (05/25/2022 9:19 PM EST): Check MRI. Continue conservative care at home. IFG (impaired fasting glucose) 05/25/2022 Assessment & Plan (06/06/2024 12:35 PM EST): Fasting blood sugar has fluctuated 88-109, A1c 5.3. Monitor. Hiatal hernia 02/25/2022 Esophageal motility disorder 02/25/2022 Primary osteoarthritis of knees, bilateral 01/08 Overview (01/08/2022): Cortisone injection of b/l knees repeated today PROCEDURE Knee Injection-right Risks and benefits discussed. Under sterile conditions and with verbal consent the right medial knee area was cleaned w/ alcohol and iodine, then anesthetized topically w/ ethyl chloride and locally with 2cc of 1%lidocaine. The Rightb knee was injected with 40 mg depomedrol and 2 cc of 1% lidocaine from a medical approach without complications. Bandage applied. Patient tolerated the procedure well. Pt was counseled about monitoring for increased pain, swelling, warmth, or redness in the area. Pt was instructed to ice the knee prn for 20 min/hr prn for any increased pain. Patient aware to call clinic with any concerns. Knee Injection-left Risks and benefits discussed. Under sterile conditions and with verbal consent the left medial knee area was cleaned w/ alcohol and iodine, then anesthetized topically w/ ethyl chloride and locally with 2cc of 1%lidocaine. The Left knee was injected with 40 mg depomedrol and 2 cc of 1% lidocaine from a medical approach without complications. Bandage applied. Patient tolerated the procedure well. Pt was counseled about monitoring for increased pain, swelling, warmth, or redness in the area. Pt was instructed to ice the knee prn for 20 min/hr prn for any increased pain. Patient aware to call clinic with any concerns. ?? Assessment & Plan (01/08/2022 11:24 PM EDT): Cortisone injection of b/l knees repeated today PROCEDURE Knee Injection-right Risks and benefits discussed. Under sterile conditions and with verbal consent the right medial knee area was cleaned w/ alcohol and iodine, then anesthetized topically w/ ethyl chloride and locally with 2cc of 1%lidocaine. The Rightb knee was injected with 40 mg depomedrol and 2 cc of 1% lidocaine from a medical approach without complications. Bandage applied. Patient tolerated the procedure well. Pt was counseled about monitoring for increased pain, swelling, warmth, or redness in the area. Pt was instructed to ice the knee prn for 20 min/hr prn for any increased pain. Patient aware to call clinic with any concerns. Knee Injection-left Risks and benefits discussed. Under sterile conditions and with verbal consent the left medial knee area was cleaned w/ alcohol and iodine, then anesthetized topically w/ ethyl chloride and locally with 2cc of 1%lidocaine. The Left knee was injected with 40 mg depomedrol and 2 cc of 1% lidocaine from a medical approach without complications. Bandage applied. Patient tolerated the procedure well. Pt was counseled about monitoring for increased pain, swelling, warmth, or redness in the area. Pt was instructed to ice the knee prn for 20 min/hr prn for any increased pain. Patient aware to call clinic with any concerns. ?? OAB (overactive bladder) 09/28/2020 Assessment & Plan (06/06/2024 12:15 PM EST): OAB generally associated with frequency and urgency. She has discontinued oxybutynin. Followed by urology (Dr Alvarez). Assessment & Plan (04/15/2024 8:14 PM EST): Has urine incontinence , urgency chronically, wears adult diapers Continue oxybutynin Assessment & Plan (04/14/2024 2:18 PM EST): Has urine incontinence , urgency chronically, wears adult diapers Continue oxybutynin Assessment & Plan (04/13/2024 11:58 AM EST): Continue oxybutynin Assessment & Plan (04/12/2024 3:51 PM EST): Continue oxybutynin Assessment & Plan (04/11/2024 4:04 PM EST): Continue oxybutynin Assessment & Plan (04/10/2024 6:59 AM EST): Continue oxybutynin Assessment & Plan (01/09/2024 12:58 PM EDT): OAB generally associated with frequency and urgency. Recently with overnight (likely overflow) urinary incontinence. Continues with urgency when she does feel she has to go but often doesn't feel it at all. This seems to be a result of her Botox bladder injections earlier this year. Continues on oxybutynin 10mg daily. Assessment & Plan (11/21/2023 10:27 PM EDT): OAB generally associated with frequency and urgency. Recently with overnight (likely overflow) urinary incontinence. Continues with urgency when she does feel she has to go but often doesn't feel it at all. This seems to be a result of her Botox bladder injections earlier this year. Followed by urology (Dr Alvarez), has follow-up scheduled next month. Assessment & Plan (06/07/2023 12:37 PM EST): Stable, continues on daily gemtesa with benefit. Followed by urology, current tx for UTI. Multiple lacunar infarcts 09/28/20202022 Overview (06/06/2024): >>OVERVIEW FOR LACUNAR INFARCTION WRITTEN ON 09/28/2020 7:31 AM BY ITA PINEDA, REGULATORY COMPLIANCE ENGINEER multiple Obstructive sleep apnea, adult 08/20/2020 Overview (02/21/2023): using CPAP Assessment & Plan (06/06/2024 12:20 PM EST): Patient has been intolerant to CPAP in the past. She normally wears 2 L of oxygen at night and as needed. Assessment & Plan (05/12/2024 11:01 AM EST): Patient has been intolerant to CPAP in the past. She normally wears 2 L of oxygen at night and as needed. Assessment & Plan (05/10/2024 10:34 AM EST): CPAP at night. Assessment & Plan (05/11/2024 11:50 AM EST): Patient has been intolerant to CPAP in the past. She normally wears 2 L of oxygen at night and as needed. Assessment & Plan (05/08/2024 2:04 AM EST): Patient has been intolerant to CPAP in the past. She normally wears 2 L of oxygen at night and as needed. Assessment & Plan (04/15/2024 8:14 PM EST): [facility]es [facility] for shortness of breath with exertion uses oxygen as needed has sleep apnea but untreated-in the past had difficulty with CPAP machine Assessment & Plan (04/14/2024 2:18 PM EST): [facility] for shortness of breath with exertion uses oxygen as needed has sleep apnea but untreated-in the past had difficulty with CPAP machine Assessment & Plan (04/13/2024 11:58 AM EST): [facility]es [facility] for shortness of breath with exertion uses oxygen as needed has sleep apnea but untreated Assessment & Plan (04/12/2024 3:51 PM EST): On home O2 2 L and CPAP. ? Of o2 use, likely intolerant of cpap Assessment & Plan (04/11/2024 4:04 PM EST): On home O2 2 L and CPAP. ? Of o2 use, likely intolerant of cpap Assessment & Plan (04/10/2024 6:59 AM EST): On home O2 2 L and CPAP. Unclear she uses the home O2 only at night for the sleep apnea as I do not see another reason why she would be on home O2 as she has no documented lung disease or hypoxia. Assessment & Plan (08/19/2020 12:36 PM EDT): Use cpap? Other reduced mobility 08/20/2020 Assessment & Plan (11/21/2023 10:38 PM EDT): Multifactorial but primarily related to severe and erosive RA. Using a wheelchair. Requires assistance with most self-care tasks. Plan for home PT re: recent left hip/thigh pain and general home safety. Assessment & Plan (09/09/2023 8:46 AM EDT): Multifactorial but primarily related to severe and erosive RA. Using a wheelchair. Requires assistance with most self-care tasks. Mild dementia 08/20/2020 02/21/2023 Assessment & Plan (06/06/2024 12:55 PM EST): Lewy body dementia vs muti-infarct. MRI brain (06/2019) w/ moderate chronic small vessel disease and multiple chronic lacunar infarcts (new from 2019). She questions this diagnosis. Functional and well supported by her partner, has capacity. Assessment & Plan (04/15/2024 8:14 PM EST): Still has capacity to make her decisions Assessment & Plan (04/14/2024 2:18 PM EST): Still has capacity to make her decisions Assessment & Plan (04/13/2024 11:58 AM EST): Still has capacity to make her decisions Assessment & Plan (04/12/2024 3:51 PM EST): Still has capacity to make her decisions Assessment & Plan (04/11/2024 4:04 PM EST): Still has capacity to make her decisions Assessment & Plan (04/10/2024 6:59 AM EST): Mild dementia and often defers to her to confirm certain facts. Still has capacity to make her decisions Patient has a MOLST on file and I confirmed she is DNR/DNI Assessment & Plan (09/09/2023 8:37 AM EDT): Stable and well supported by her partner. Followed by neurology, although considering seeking a second opinion regarding her dementia diagnosis. They will let me know if in need of a new referral. Personal history of urinary (tract) infections 0 08/20/2020 Assessment & Plan (05/12/2024 11:01 AM EST): Pyuria on UA but without corwin symptoms of urinary tract infection. - Holding antibiotics in the setting of Clostridium C. Difficile -Patient without fevers leukocytosis resolved. Assessment & Plan (05/10/2024 10:34 AM EST): Does not appear to have active urinary tract infection at this time. Will not treat at this point. Treatments going forward given the severity of her C. difficile will be difficult to manage. Assessment & Plan (05/09/2024 2:02 PM EST): Does not appear to have active urinary tract infection at this time. Will not treat at this point. Treatments going forward given the severity of her C. difficile will be difficult to manage. Assessment & Plan (05/11/2024 11:50 AM EST): Pyuria on UA but without corwin symptoms of urinary tract infection. - Holding antibiotics in the setting of Clostridium C. Difficile -Patient without fevers leukocytosis resolved. Assessment & Plan (05/08/2024 2:04 AM EST): Pyuria on UA but without corwin symptoms of urinary tract infection. Withhold antibiotics for now and observe. Assessment & Plan (01/09/2024 12:57 PM EDT): Recurrent UTIs may be a side effect of her Botox treatment for overactive bladder, which could have impaired her ability to fully empty her bladder. As the effects of Botox diminish, her condition may improve. She is advised to continue with her current low-dose methenamine regimen. If she experiences a period of six months without infections, discontinuation of the antibiotic can be considered. Assessment & Plan (09/09/2023 8:39 AM EDT): The patient has experienced recurrent UTIs, with the current episode potentially being the third within a span of less than five months. The patient has been advised to discuss the possibility of long-term prophylactic antibiotics with her urologist. Paroxysmal A-fib 11/27/2010 Assessment & Plan (06/06/2024 12:24 PM EST): Hx PAF. Rate controlled on carvedilol and on Eliquis for AC. HRR on exam today. Followed by [facility] cardiology (Dr Pittman). Assessment & Plan (05/12/2024 11:01 AM EST): Rate controlled. -Apixaban for stroke prophylaxis -Continue Coreg Assessment & Plan (05/10/2024 10:34 AM EST): Stable at this time. Will discontinue monitoring. Patient is chronically anticoagulated but this was held for 2 days as she was having some bleeding per rectum from a hemorrhoid. Bleeding has now stopped. Will restart her apixaban. Assessment & Plan (05/09/2024 2:02 PM EST): Stable at this time. Continue with the monitor. He is chronically anticoagulated but given the hematochezia from likely C. difficile irritating a hemorrhoid, will hold off. Assessment & Plan (05/11/2024 11:50 AM EST): Rate controlled. -Apixaban for stroke prophylaxis -Continue Coreg Assessment & Plan (05/08/2024 2:04 AM EST): Rate controlled. Patient normally maintained on apixaban for stroke prophylaxis --Hold apixaban in the setting of GI bleeding. --Continue with Coreg Assessment & Plan (04/15/2024 8:14 PM EST): Cont carvedilol On Eliquis carvedilol, Assessment & Plan (04/14/2024 2:18 PM EST): Presently in sinus -On Eliquis carvedilol, Assessment & Plan (04/13/2024 11:58 AM EST): Presently in sinus -On Eliquis carvedilol, lasix? Assessment & Plan (04/12/2024 3:51 PM EST): On Eliquis carvedilol Assessment & Plan (04/11/2024 4:04 PM EST): On Eliquis carvedilol Assessment & Plan (04/10/2024 6:59 AM EST): On Eliquis 5 mg twice daily and followed by cardiology every 6 months. Hemoglobin is stable with no signs of GI bleeding so we will continue. Continue carvedilol Assessment & Plan (01/09/2024 1:00 PM EDT): Hx PAF. Rate controlled on carvedilol and on Eliquis for AC. HRR on exam today. Assessment & Plan (11/21/2023 10:34 PM EDT): Hx PAF. Rate controlled on carvedilol and on Eliquis for AC. HRR on exam today. Assessment & Plan (09/09/2023 8:38 AM EDT): Hx PAF. Rate controlled on carvedilol and on Eliquis for AC. The patient is scheduled for a follow-up appointment with her it consulting manager, Dr. Puckett, on 09/11/2023. If required, I can provide refills for her Eliquis prescription. Assessment & Plan (06/07/2023 12:35 PM EST): Hx PAF. Rate controlled on carvedilol and on Eliquis for AC. Assessment & Plan (05/23/2023 2:25 PM EST): Hx PAF. Rate controlled on carvedilol and on Eliquis for AC. Assessment & Plan (08/19/2020 2:59 AM EDT): We will continue with Eliquis. Rheumatoid arthritis involving multiple sites Assessment & Plan (06/06/2024 12:03 PM EST): Longstanding history of severe erosive and deforming RA with pain in multiple joints. Using a wheelchair since around 2019 due to knee pain. Her usual regimen includes rituximab, methotrexate, and prednisone which had been working well for her. Her Rituxan treatment has been delayed twice due to ongoing diarrhea and the need to discontinue vancomycin. She has temporarily stopped methotrexate due to concerns about potential interactions with antibiotics. Followed by rheumatology and also pain specialty. Assessment & Plan (05/14/2024 6:27 PM EST): Longstanding history of severe erosive and deforming RA with pain in multiple joints. Using a wheelchair since around 2019 due to knee pain. Immunosuppressed on rituximab, methotrexate, and prednisone which had been working well for her, biologic and methotrexate placed on hold during recent acute infection. Mobility has declined with recent illness and she is struggling to reposition or turn herself even in bed. A refill was provided for Tramadol, reinforced sparing use. Followed by rheumatology and also pain specialty. Assessment & Plan (05/12/2024 11:01 AM EST): Patient immunosuppressed on rituximab, methotrexate, and prednisone. --Rituximab and methotrexate are held during acute infection --Continue with usual prednisone 2.5 mg. No current clear need for stress dose steroids Assessment & Plan (05/10/2024 10:34 AM EST): Stable. Continue on oral daily prednisone, but holding the patient's methotrexate. She is also on rituximab but is not due. Assessment & Plan (05/09/2024 2:02 PM EST): Stable. Continue on oral daily prednisone. Assessment & Plan (05/11/2024 11:50 AM EST): Patient immunosuppressed on rituximab, methotrexate, and prednisone. --Rituximab and methotrexate are held during acute infection --Continue with usual prednisone 2.5 mg. No current clear need for stress dose steroids Assessment & Plan (05/08/2024 2:04 AM EST): Patient immunosuppressed on rituximab, methotrexate, and prednisone. --Rituximab and methotrexate are held --Continue with usual prednisone 2.5 mg. Assessment & Plan (04/15/2024 8:14 PM EST): Chronically on low-dose prednisone and methotrexate, flexeril (continued on prednisone, hold methotrexate until infection cleared) Assessment & Plan (04/14/2024 2:18 PM EST): Chronically on low-dose prednisone and methotrexate, flexeril Assessment & Plan (04/13/2024 11:58 AM EST): Chronically on low-dose prednisone and methotrexate, flexeril Assessment & Plan (04/12/2024 3:51 PM EST): Chronically on low-dose prednisone and methotrexate. Assessment & Plan (04/11/2024 4:04 PM EST): Chronically on low-dose prednisone and methotrexate. Assessment & Plan (04/10/2024 6:59 AM EST): Chronically on low-dose prednisone and methotrexate. Continue those for now as she does not appear septic or have other clinical signs of sepsis. Assessment & Plan (11/21/2023 10:36 PM EDT): Longstanding history of severe erosive and deforming RA with pain in multiple joints. Using a wheelchair since around 2019 due to knee pain. Able to transfer independently but gait is slow and she tires easily. Recently tapered all the way off daily prednisone, feels the Rituxan infusions are working well. Also on methotrexate. Followed by rheumatology and also pain specialty. Assessment & Plan (09/09/2023 8:38 AM EDT): Longstanding history of severe erosive and deforming RA with pain in multiple joints. Using a wheelchair since around 2018 due to knee pain. Able to transfer independently but gait is slow and she tires easily. The patient will continue her follow-up with her news analyst, Dr. Franklin, in 09/2023. Assessment & Plan (05/23/2023 2:17 PM EST): Longstanding history of severe erosive and deforming RA with pain in multiple joints. Using a wheelchair since around 2018 due to knee pain. Able to transfer independently but gait is slow and she tires easily. Assessment & Plan (01/07/2023 2:07 PM EDT): It looks like the patient is seeing pain management now regarding the neck head and upper back spasms. We talked about nortriptyline and amitriptyline with her and her . Low doses of such would be neuromodulator to help with the nerve pain. The patient would like to consult first with pain management and then in a follow-up visit in 3 months we can look into that suggestion again. Counseled patient on safety with the nighttime low-dose lorazepam and morphine that she is on for her rheumatoid arthritis. I told her I would agree to continue both meds however I would like her and her to monitor for safety, falls, altered mental status changes with a low threshold to take off the Ativan. Assessment & Plan (12/05/2022 5:25 PM EDT): Follows with rheum for this, cont same. Assessment & Plan (05/25/2022 9:19 PM EST): Establishing with new news analyst. Discussed planning to reduce frequency and dose of morphine. Opal is agreeable, would like to have a plan in place for pain management with her new provider first, which is reasonable. Will update CSRP agreement when due. Plan urine tox screening for when she returns next week.; she must leave today because of lengthy appointment wait time. Assessment & Plan (01/08/2022 11:23 PM EDT): Symptoms improved after increasing prednisone, unclear the efficacy of the Rituxan infusions last 09/2021 Ongoing eye inflammation, per pt due to iritis making it difficult for her to taper prednisone - Current dose 10 mg - Monitoring labs ordered -Will give trial Sc MTX , previously not tolerated due to GI upset/loose stool ?? Unclear the exact dx the eye inflammation but will try to obtain opthal notes or review ?? Assessment & Plan (07/03/2021 10:52 PM EST): Symptoms improved after increasing prednisone, unclear the efficacy of the Rituxan infusions last Last December . She would be due for repeat Rituxan infusion this month Polo knee pain I suspect due to RA > OA , mild warmth and swelling, s/p injections today-please see procedure note I would favor repeating Rituxan or trial Actemra Pt and wish to think about it - Taper prednisone By 2.5 mg every 2 weeks. Hold at 5 mg daily - Monitoring labs ordered, they will get done next week due to time constraints. Unclear the exact dx the eye inflammation ( ? Scleritis or iritis) but will try to obtain opthal notes or review ?? Assessment & Plan (08/19/2020 12:28 PM EDT): Usual prednisone ordered. Is she followed by anyone anymore? . Elevations in CRP LFTs due to this? Hypertensive disorder 08/26/2008 Assessment & Plan (06/06/2024 12:21 PM EST): Stable, BP well controlled on current regimen. On low dose losartan and lasix daily, tolerating well w/o dizziness. Assessment & Plan (04/15/2024 8:14 PM EST): Continue losartan lasix Assessment & Plan (04/14/2024 2:18 PM EST): Continue losartan lasix Assessment & Plan (04/13/2024 11:58 AM EST): Continue losartan Assessment & Plan (04/12/2024 3:51 PM EST): Continue losartan but monitor renal function closely Assessment & Plan (04/11/2024 4:04 PM EST): Continue losartan but monitor renal function closely Assessment & Plan (04/10/2024 6:59 AM EST): Continue losartan but monitor renal function closely Assessment & Plan (01/09/2024 1:01 PM EDT): Stable, BP well controlled on current regimen. On low dose losartan daily, tolerating well w/o dizziness. Recently with persistent cough, not likely related to losartan as this is a long-standing medication for her. Previously on lisinopril which was d/c'd due to a rash, also held previously due to an DOMI. Continue efforts re: healthy balanced low-salt diet, avoid caffeine and alcohol, physical activity as tolerated (limited by chronic pain/RA). Assessment & Plan (11/21/2023 10:34 PM EDT): Stable, BP well controlled on current regimen. On low dose losartan daily, tolerating well w/o dizziness or cough. On carvedilol only re: Afib. Previously on lisinopril which was d/c'd due to a rash, also held previously due to an DOMI. Continue efforts re: healthy balanced low-salt diet, avoid caffeine and alcohol, physical activity as tolerated (limited by chronic pain/RA). DM visit q6 mos, f/u sooner PRN. Assessment & Plan (06/07/2023 12:35 PM EST): Improved BP, just at goal <140/90. Recently started on losartan, tolerating well w/o dizziness or cough. On carvedilol only re: Afib. Previously on lisinopril which was d/c'd due to a rash, also held previously due to an DOMI. Continue efforts re: healthy balanced low-salt diet, avoid caffeine and alcohol, physical activity as tolerated (limited by chronic pain/RA). DM visit q6 mos, f/u sooner PRN. Assessment & Plan (05/23/2023 2:26 PM EST): Uncontrolled, BP not at goal <140/90. On carvedilol only re: Afib. Previously on lisinopril which was d/c'd due to a rash, also held previously due to an DOMI. Discussed medication options, risks/benefits/side effects reviewed. Start losartan nightly and f/u in 2 weeks for BP re-check. Continue efforts re: healthy balanced low-salt diet, avoid caffeine and alcohol, physical activity as tolerated (limited by chronic pain/RA). Assessment & Plan (05/25/2022 9:20 PM EST): Well-managed on current medication regimen. Check labs. Migraine 08/26/2008 Assessment & Plan (05/12/2024 11:01 AM EST): Denies any current migraine symptoms Assessment & Plan (05/11/2024 11:50 AM EST): Denies any current migraine symptoms Assessment & Plan (05/10/2024 10:34 AM EST): Treating with as needed Tylenol. Osteopenia 08/26/2008 Assessment & Plan (06/06/2024 12:19 PM EST): Lumbar spine, bilateral femoral neck and total hip osteopenia noted on DEXA 04/25/21. On chronic steroids re: RA. Continues on alendronate weekly. Continue weightbearing activity as tolerated. Pt at risk for falls with poor balance. Assessment & Plan (04/15/2024 8:14 PM EST): alendronate weekly Assessment & Plan (04/14/2024 2:18 PM EST): alendronate weekly Assessment & Plan (04/13/2024 11:58 AM EST): alendronate weekly Assessment & Plan (04/12/2024 3:51 PM EST): alendronate weekly Assessment & Plan (04/11/2024 4:04 PM EST): alendronate weekly Assessment & Plan (04/10/2024 6:59 AM EST): Will need to confirm what date her last dose of alendronate was to see if we need to order it during this admission. So for now we will put it on hold and her orders. Assessment & Plan (09/09/2023 8:37 AM EDT): The patient's last bone density test results were within the osteopenic range. The potential impact of prednisone use on her bone health, particularly in the context of her fractures, has been discussed. On chronic steroids re: RA. Continues on alendronate weekly. Continue weightbearing activity as tolerated. Assessment & Plan (05/23/2023 2:30 PM EST): On chronic steroids re: RA. Continues on alendronate weekly. Continue weightbearing activity as tolerated. Check vitamin d. Assessment & Plan (01/08/2022 11:29 PM EDT): Most recent dexa 04/18 consistent with osteopenia If pt remains of chronic prednisone , will need to add Bisphosphonate or consider Prolia to reduce risk of steroid induced osteoporosis Pt at risk for falls with poor balance Gastroesophageal reflux disease 08/26/2008 Assessment & Plan (04/15/2024 8:14 PM EST): As an outpatient she is on both ppi H2 aristeo to control reflux - does increase risk for cdiff but seems necessary to manage symptoms Assessment & Plan (04/14/2024 2:18 PM EST): As an outpatient she is on both ppi H2 aristeo to control reflux Assessment & Plan (04/13/2024 11:58 AM EST): As an outpatient she is on both ppi H2 aristeo ? Assessment & Plan (04/12/2024 3:51 PM EST): As an outpatient she is on both H2 aristeo and PPI. Inc risk of cdiff with ppi noted. Assessment & Plan (04/11/2024 4:04 PM EST): As an outpatient she is on both H2 aristeo and PPI. Inc risk of cdiff with ppi noted. Assessment & Plan (04/10/2024 6:59 AM EST): As an outpatient she is on both H2 aristeo and PPI. Given increased risk of recurrent C. difficile on PPI, will hold PPI and just continue the famotidine. Assessment & Plan (01/08/2024 8:25 AM EDT): Her cough may be a symptom of silent reflux, where acid reflux triggers the cough, rather than a pulmonary issue. She is currently taking pantoprazole and famotidine and may continue these medications. Assessment & Plan (05/25/2022 9:20 PM EST): Trial pantoprazole instead of omeprazole. She will also let me know when next GI appt is. Endometriosis 08/26/2008 Bilateral cataracts 08/26/2008 Major depressive disorder 08/26/2008 Overview (05/09/2024): managed on bupropion and fluoxetine; no hospitalizations; denies suicidal ideation Assessment & Plan (06/06/2024 12:12 PM EST): Stable, continues on escitalopram with benefit. Looking for an individual counselor. Remains in good spirits despite recent health issues, well supported by her partner. No safety concerns at present. Assessment & Plan (09/09/2023 8:45 AM EDT): Stable, continues on escitalopram with benefit. Looking for an individual counselor. No hospitalizations, no safety concerns at present, denies SI. Assessment & Plan (06/07/2023 12:38 PM EST): Stable, continues on escitalopram with benefit. Looking for an individual counselor. No hospitalizations, no safety concerns at present, denies SI. Assessment & Plan (05/23/2023 2:29 PM EST): Stable, continues on escitalopram with benefit. Looking for an individual counselor. No hospitalizations, no safety concerns at present, denies SI. Assessment & Plan (05/23/2023 2:28 PM EST): >>ASSESSMENT AND PLAN FOR MAJOR DEPRESSIVE DISORDER, SINGLE EPISODE, UNSPECIFIED WRITTEN ON 08/19/2020 12:37 PM BY ELIDA CRESPO MD Usual medication ordered Assessment & Plan (05/23/2023 2:28 PM EST): >>ASSESSMENT AND PLAN FOR MAJOR DEPRESSIVE DISORDER, SINGLE EPISODE, UNSPECIFIED WRITTEN ON 09/13/2021 1:22 AM BY MARA BARNTET MD Has decreased motivation, depressed mood, weight reduction with decreased appetite. Elevates of major depression. Patient contracts for safety, no signs of SI. We will discontinue the Celexa and switch the patient to Lexapro. Trial of 10 days to see if there are any side effects at 5 mg and then we will boost up to 10 mg daily and follow-up with the patient in 8 weeks. C. difficile colitis 08/26/2008 Assessment & Plan (06/19/2024 3:37 PM EST): Pt and have concern about another bout of C diff. She is currently tolerating oral vancomycin once every 3 days. Given her immunocompromised status and history of recurrent urinary tract infection, I think we should continue vancomycin by mouth every 3 days indefinitely. She and her agree with this plan. Reviewed that severe abdominal pain, intractable diarrhea, or signs of dehydration would warrant emergent evaluation. Assessment & Plan (06/06/2024 12:11 PM EST): Recently with two episodes of C-diff colitis. Sx are improved with vancomycin, continues on extended taper. Encouraged to continue probiotic supplement and include naturally probiotic foods in her diet. She will follow-up with infectious disease as planned, recent visit note reviewed. If she experiences another recurrence, preventative antibiotics may be considered. Assessment & Plan (05/22/2024 8:58 AM EST): Pt has improved with vancomycin. Recommend a longer taper given history of recurrence. Discussed that worsening of known IBS is possible following a C diff infection. Encouraged low FODMAP diet. Encouraged to continue probiotic as well as Kefir and fermented foods such as kombucha, kimchi, or sauerkraut. Given pt's history of recurrent urinary tract infection, I do not think she would be a good candidate for fecal transplant should she have another recurrence and would likely recommend daily or every other day vancomycin. Assessment & Plan (05/14/2024 6:20 PM EST): Recent treatment for recurrent Cdiff, completed course of vancomycin. She is encouraged to consume probiotics such as yogurt, kefir, kombucha, sauerkraut, kimchi, or any fermented food. She can also take a probiotic supplement if preferred, Culturelle was recommended inpatient. She will follow-up with GI as planned, an outpatient colonoscopy was recommended after Cdiff resolution. Assessment & Plan (05/12/2024 11:01 AM EST): The patient has a remote history of C. difficile several years ago in addition to her episode of C. difficile approximately 3 weeks ago. She is immunosuppressed, has had significant antibiotic exposure due to her frequent UTIs, and is on acid suppressing medications though this has recently been minimized. Last admission she had flushing to vancomycin but denies having itching, difficulty breathing, or swelling. Pt tolerating Vanco during this admission so far. -- Started on p.o. Vanco and Culturelle. Monitor closely for reactions -- ID following for recurrent C. Difficile: continue vancomycin 125 mg p.o. 4 times daily until ID follow up with Dana Rucker on 05/19/2024 - Continue IV Flagyl - Follow exam vital signs and labs - CT colitis similar to prior scan most pronounced at the sigmoid colon. - GI consulted pt appears to be slowly improving - continue to avoid PPI/H2 antagonists to reduce the risk of relapsing C. difficile infection. - Pt will need an outpatient colonoscopy after resolution of C.diff Assessment & Plan (05/10/2024 10:34 AM EST): Treating with Vanco and IV Flagyl. ID consulted. GI consulted. Improved from yesterday. White count trending down. CT from yesterday shows diffuse colitis but no other new acute findings. Finding on the pole of the kidney that will need outpatient follow-up and has been placed in provider follow-up section of the discharge chart ready. Still awaiting GI input. Continue with current vancomycin and IV Flagyl. Assessment & Plan (05/10/2024 10:27 AM EST): >>ASSESSMENT AND PLAN FOR CLOSTRIDIUM DIFFICILE COLITIS WRITTEN ON 04/15/2024 8:14 PM BY BELLE CÁRDENAS MD CT showing pancolitis. Recently on abx for recurrent uti Cdiff + so vanco q6h started- developed skin flushing, low suspicion for vanco flushing with oral but discussed with ID, changed to fidaxomicin Has already picked up fidaxomicin from outpt pharmacy for discharge Discussed future caution with systemic antibiotics and signs to watch for for recurrent of cdiff Assessment & Plan (05/10/2024 10:27 AM EST): >>ASSESSMENT AND PLAN FOR CLOSTRIDIUM DIFFICILE COLITIS WRITTEN ON 04/14/2024 2:18 PM BY ELIDA CRESPO MD CT showing pancolitis. Recently on abx for recurrent uti Cdiff + so vanco q6h started , 04/10, 125 mg orally, 10 day course. Weekend noted to have skin rxn, low suspicion for vanco flushing with oral but discussed with ID, change to dificid, checked with her pharmacy- rx would be covered and $50, they ordered it for her. Appetite improving Today stool minimal, abd pain low level-however describing weakness and dysuria. Ordered UA and PT consult Assessment & Plan (05/10/2024 10:27 AM EST): >>ASSESSMENT AND PLAN FOR CLOSTRIDIUM DIFFICILE COLITIS WRITTEN ON 04/13/2024 11:58 AM BY ELIDA CRESPO MD CT showing pancolitis. Recent abx, recurrent uti Cdiff + vanco q6h started 12/, 125 mg orally, 10 day course. Weekend noted to have skin rxn, low suspicion for vanco flushing with oral but discussed with ID, change to dificid, checked with her pharmacy- rx would be covered and $50, they ordered it for her. Appetite improving Discharge when stool minimal, abd pain low level Assessment & Plan (05/10/2024 10:27 AM EST): >>ASSESSMENT AND PLAN FOR CLOSTRIDIUM DIFFICILE COLITIS WRITTEN ON 04/12/2024 3:51 PM BY YOLY WILSON DO CT showing pancolitis. Recent abx, recurrent uti Cdiff + vanco q6h started 12/, 125 mg orally, 10 day course. Today noted to have skin rxn, low suspicion for vanco flushing with oral but discussed with ID, change to dificid, checked with her pharmacy- rx would be covered and $50, they ordered it for her. Appetite improving Assessment & Plan (05/10/2024 10:27 AM EST): >>ASSESSMENT AND PLAN FOR CLOSTRIDIUM DIFFICILE COLITIS WRITTEN ON 04/11/2024 4:04 PM BY YOLY WILSON DO CT showing pancolitis. Recent abx, recurrent uti Cdiff + vanco q6h started 12/, 125 mg orally, 10 day course. She held her lasix at home with dehydration, encourage hydration Appetite is still poor.. Assessment & Plan (05/10/2024 10:27 AM EST): >>ASSESSMENT AND PLAN FOR CLOSTRIDIUM DIFFICILE COLITIS WRITTEN ON 04/10/2024 6:59 AM BY PRADIP CHOI MD Patient has recently completed antibiotics for UTI, presenting with voluminous and frequent diarrhea that is foul-smelling, and CT showing pancolitis. Suspicion for C. difficile was confirmed on PCR this morning and therefore we will start vancomycin 125 mg p.o. every 6 hours for at least 10 days. Monitor ins and outs and replete fluids as needed. So far she has been able to take p.o. fluids and has been had a good sense to hold her p.o. Lasix at home for last couple of days. Lactate is normal so I do not think she will need IV fluids at this time. Can likely discharge once the volume frequency of diarrhea has improved and she can keep up with p.o. intake. Assessment & Plan (05/09/2024 2:02 PM EST): Treating with Vanco and IV Flagyl. ID consulted. GI will be consulted. This is likely the cause of the patient's abdominal pain. No imaging studies have been done thus far and therefore we will get a CT of the abdomen and pelvis. Will be able to compare to the CT performed back in March. Concern for toxic megacolon. Does not have a surgical abdomen at this point. Assessment & Plan (05/11/2024 11:50 AM EST): The patient has a remote history of C. difficile several years ago in addition to her episode of C. difficile approximately 3 weeks ago. She is immunosuppressed, has had significant antibiotic exposure due to her frequent UTIs, and is on acid suppressing medications though this has recently been minimized. Last admission she had flushing to vancomycin but denies having itching, difficulty breathing, or swelling. Pt tolerating Vanco during this admission so far. -- Started on p.o. Vanco and Culturelle. Monitor closely for reactions -- ID following for recurrent C. Difficile: continue vancomycin 125 mg p.o. 4 times daily until ID follow up with Dana Rucker on 05/19/2024 - Continue IV Flagyl - Follow exam vital signs and labs - CT colitis similar to prior scan most pronounced at the sigmoid colon. - GI consulted pt appears to be slowly improving Assessment & Plan (05/08/2024 2:04 AM EST): The patient has a remote history of C. difficile several years ago in addition to her episode of C. difficile approximately 3 weeks ago. She is immunosuppressed, has had significant antibiotic exposure due to her frequent UTIs, and is on acid suppressing medications though this is recently been minimized. Last admission she had flushing to vancomycin but denies having itching, difficulty breathing, or swelling. --Start p.o. Vanco and Culturelle. Monitor closely for true reaction. --Consult ID for recurrent C. difficile Hypothyroidism Overview (04/23/2018): s/p treatment for for hyperthyroidism; now on levothyroxine and stable Assessment & Plan (06/06/2024 12:41 PM EST): s/p GOODWIN for for hyperthyroidism; now on stable on levothyroxine 88mcg daily. Clinically euthyroid, TSH 1.46 (12/2023). Assessment & Plan (05/12/2024 11:01 AM EST): Continue with levothyroxine TSH 1.46 (12/2023) Assessment & Plan (05/10/2024 10:34 AM EST): Stable. Continue with levothyroxine. Assessment & Plan (05/09/2024 2:02 PM EST): Stable. Continue with levothyroxine. Assessment & Plan (05/11/2024 11:50 AM EST): Continue with levothyroxine TSH 1.46 (12/2023) Assessment & Plan (05/08/2024 2:04 AM EST): Continue with levothyroxine Assessment & Plan (04/15/2024 8:14 PM EST): Continue levothyroxine Assessment & Plan (04/14/2024 2:18 PM EST): Continue levothyroxine Assessment & Plan (04/13/2024 11:58 AM EST): Continue levothyroxine Assessment & Plan (04/12/2024 3:51 PM EST): Continue levothyroxine Assessment & Plan (04/11/2024 4:04 PM EST): Continue levothyroxine Assessment & Plan (04/10/2024 6:59 AM EST): Continue levothyroxine Assessment & Plan (01/09/2024 12:58 PM EDT): Her thyroid levels were within the normal range during the last test conducted in 2022. Thyroid function tests will be conducted today to ensure she is on the correct dose of levothyroxine. If necessary, the levothyroxine dosage can be adjusted. Assessment & Plan (09/09/2023 8:42 AM EDT): s/p treatment for for hyperthyroidism; now on stable on levothyroxine 88mcg daily. Assessment & Plan (05/23/2023 2:27 PM EST): s/p treatment for for hyperthyroidism; now on stable on levothyroxine 88mcg daily. Assessment & Plan (12/05/2022 5:10 PM EDT): TSH wnl in May- cont same dose Diverticulosis History of anemia Overview (04/23/2018): on iron supplement; stable Resolved Problems Problem Noted Date Diagnosed Date Resolved Date Generalized abdominal pain 05/09/2024 0 06/06/2024 Assessment & Plan (05/14/2024 6:30 PM EST): Reporting generalized abdominal pain. Bowel movements are more solid but still soft. The abdominal pain may be due to muscle spasms or cramps. She has access to dicyclomine as needed. She was advised to apply a heating pad to her abdomen as needed. She is advised to continue with the fiber supplement to bulk up the stool and slow down bowel movements. Assessment & Plan (05/12/2024 11:01 AM EST): Secondary to C. difficile colitis. -Infectious disease and GI following -Pain medication as needed -New to monitor Assessment & Plan (05/11/2024 11:50 AM EST): Secondary to C. difficile colitis. -Infectious disease and GI following -Pain medication as needed -New to monitor Assessment & Plan (05/10/2024 10:34 AM EST): Secondary to C. difficile. Improving today. No opiates needed. Treat with Tylenol as needed. Assessment & Plan (05/09/2024 2:02 PM EST): Secondary to C. difficile. Assessing more thoroughly with CT of the abdomen and pelvis. Discussed pain medication options with the patient and she does not want to change at this point. Hematochezia 05/08/2024 06/06/2024 Assessment & Plan (05/12/2024 11:01 AM EST): Had blood-streaked stools on presentation. H&H appears normal. Has a history of hemorrhoids and diverticulosis. -- Monitor for signs of ongoing bleeding. -- GI consulted -- CBC stable for the past 4 days -- Outpatient follow-up with GI for colonoscopy -- PPI on hold to reduce the risk of C. difficile recurrence monitor closely Assessment & Plan (05/10/2024 10:34 AM EST): Likely from hemorrhoid. Was holding anticoagulation but will restart today. Monitor. Assessment & Plan (05/09/2024 2:02 PM EST): Likely from hemorrhoid. Holding anticoagulation. Assessment & Plan (05/11/2024 11:50 AM EST): Had blood-streaked stools on presentation. H&H appears normal. Has a history of hemorrhoids and diverticulosis. -- Monitor for signs of ongoing bleeding. -- GI consulted -- CBC stable overnight Assessment & Plan (05/08/2024 2:04 AM EST): Had blood-streaked stools on presentation. H&H appears normal. Has a history of hemorrhoids and diverticulosis. -- Monitor for signs of ongoing bleeding. Check CBC. -- Pausing anticoagulation for now. Acute cystitis without hematuria 04/30/2024 06/06/2024 Assessment & Plan (05/14/2024 6:20 PM EST): She is understandably nervous about taking more antibiotics considering her recent treatment for Cdiff. She is symptomatic and positive for a UTI currently. We discussed antibiotic options, which are already limited by her sulfa allergy and intolerance of Macrobid, and ultimately decided to proceed with the treatment that offers the shortest possible duration. A one-time dose of fosfomycin will be administered. She is advised to maintain high fluid intake and consider taking Azo for pain relief. She is advised to continue with her urology follow-up. She is advised to consume 100 percent cranberry juice or take a cranberry supplement. If she experiences severe pain or develops a fever, she should contact the office immediately. Rash 04/12/2024 04/16/2024 Assessment & Plan (04/15/2024 8:14 PM EST): resolved Assessment & Plan (04/14/2024 2:18 PM EST): resolved Assessment & Plan (04/13/2024 11:58 AM EST): resolved Assessment & Plan (04/12/2024 3:51 PM EST): Unclear if AI mediated or allergic reaction, also considered narcotics as possible culprit Hold narcotics if possible Give benadryl, pepcid Her airway and breathing are of no concern. Cough 01/08/2024 05/09/2024 Assessment & Plan (01/09/2024 12:59 PM EDT): Chronic cough may be secondary to GERD vs underlying pulmonary issue. She does have a history of hypoxia but is no longer using home oxygen at bedtime. Left thigh pain 11/21/2023 05/10/2024 Assessment & Plan (11/21/2023 10:30 PM EDT): Tenderness in the left upper thigh. Experiences pain with weightbearing, transfers and any hip flexion, injury likely muscular. Recently not able to use her cane or walker much, getting around in a manual wheelchair. A referral for in-home physical therapy has been made. Strain of flexor muscle of left hip 11/21/2023 05/10/2024 Assessment & Plan (11/21/2023 10:28 PM EDT): Left hip pain appears to be due to a muscle strain or sprain. She was advised to apply heat or use warming treatments such as Icy Hot or Salonpas. Rib pain on left side 09/09/20232023 Assessment & Plan (09/09/2023 8:35 AM EDT): Rx renewed for lidocaine patches. Emphasized the importance of regular cough and deep breathing to reduce risk for pneumonia. The patient will continue her follow-up with the pain management team at [facility]. Abnormal urine odor 09/05/2023 01/02/20 Assessment & Plan (11/21/2023 10:22 PM EDT): A urinalysis will be conducted today, order already in place. If the results indicate an infection, a urine culture will be ordered. Assessment & Plan (09/09/2023 8:39 AM EDT): A urinalysis will be conducted today. If the results indicate an infection, a urine culture will be ordered. Hypoxia 06/07/2023 05/10/2024 Overview (06/07/2023): in-home and a portable oxygen concentrator with O2 therapy at 2 L/min Rheumatoid arthritis involving multiple sites 05/23/1905/23/2023 Suicidal ideation 12/05/2022 05/09/2024 Assessment & Plan (12/05/2022 5:21 PM EDT): Pt answered + to having SI on questionnaire. States she does have these thoughts, but She denies plan. I would never act on it she became tearful regarding her poor health and multiple medical issues. She was encouraged to call her insurer, and get the names of MH counselors to call that are under her insurance plan. She DECLINES medication evaluation I don't want more medications And verbalized she would reach out to her insurer. Throat congestion 12/05/2022 06/07/2023 Assessment & Plan (12/05/2022 5:10 PM EDT): Exam is WNL. She will call if she worsens. No evidence of infection Sweat, sweating, excessive 12/05/2022 0 11/21/2023 Assessment & Plan (12/05/2022 5:23 PM EDT): Cause is not clear. She has multiple medical issues and the sweating episodes are not new. There is not active infection at present. They were reassured that her thyroid level was done in May and is normal they will est care with NEW pcp in near future. 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 Her next visit with rheumatology is not until September and she will continue on current medication until that time. She met with Dr. Cool last year for consult as she was discontinuing hospice services. I appreciate the opportunity for another consult in managing this complex pain management case. Referral has been placed. Lower esophageal ring (Ramírez) 02/25/2022 04/16/2024 Assessment & Plan (04/15/2024 8:14 PM EST): Followed by our GI group with history of esophageal dilation. Assessment & Plan (04/14/2024 2:18 PM EST): Followed by our GI group with history of esophageal dilation. Assessment & Plan (04/13/2024 11:58 AM EST): Followed by our GI group with history of esophageal dilation. Assessment & Plan (04/12/2024 3:51 PM EST): Followed by our GI group with history of esophageal dilation. Assessment & Plan (04/11/2024 4:04 PM EST): Followed by our GI group with history of esophageal dilation. Assessment & Plan (04/10/2024 6:59 AM EST): Followed by our GI group with history of esophageal dilation. Contact dermatitis of female genitalia 11/23/2020 09/09/2023 Drug-induced lupus erythematosus 09/28/2020 06/06/2024 Lewy body disease 08/20/2020 02/21/2023 09/05/2023 Failure to thrive in adult 08/19/2020 0 11/21/2023 Assessment & Plan (08/19/2020 3:12 AM EDT): Seems to be most likely secondary to progressive dementia and complicated by chronic nausea. She has no desire to eat. QT is slightly prolonged so I will not start mirtazapine now, but perhaps upon correction of her hypomagnesemia and borderline low hypokalemia her QT prolongation will improve and we could try Remeron. Megace not started because of increased thrombotic risk. -Consult to gerontology for other possible solutions. Intractable nausea and vomiting 08/19/2020 02/21/2023 Assessment & Plan (08/19/2020 12:33 PM EDT): History of IBS and has followed with Dr. Zapien in the past. Has a GI appointment on 08/30 as outpatient with? Who Patient has not had emesis in the hospital and in no stool yet. She does have nausea. Due to report of weight loss and repetitive episodes of nausea vomiting did ask GI to consult regarding? Endoscopy needed Aspiration into airway 08/19/202002/21 Assessment & Plan (08/19/2020 12:31 PM EDT): Due to patient's abnormal x-ray and history of vomiting concern raised in ED about aspiration pneumonia. Given IV Zosyn in the emergency department. However without an elevated white count or fever this was not continued. Patient has not developed a fever in the hospital or hypoxia she does not have a cough or shortness of breath.. Continue off antibiotics. Severe protein-calorie malnutrition 08/19/2020 09/05/2023 Assessment & Plan (08/19/2020 4:08 PM EDT): Dietitian consulted Rash 06/23/2018 08/19/2020 Pain in upper limb 11/17/2013 Overview (06/19/2014): Pain in upper limb Hypokalemia 11/27/2010 06/06/2024 Assessment & Plan (05/12/2024 11:01 AM EST): Patient hypokalemic during an admission in the setting of GI losses with frequent diarrhea. -Continue to monitor BMP and supplement as needed. -Hypokalemia now resolved. Assessment & Plan (05/11/2024 11:50 AM EST): Patient hypokalemic during an admission in the setting of GI losses with frequent diarrhea. -Continue to monitor BMP and supplement as needed. -Hypokalemia now resolved. Assessment & Plan (05/10/2024 10:34 AM EST): Improved. Will recheck tomorrow. Assessment & Plan (05/09/2024 2:02 PM EST): Likely secondary to losses. Replating. Will recheck. Adverse effect of anesthetic 05/09/2024 Overview (04/23/2018): Delayed emergence with last surg 2018 Encounters Date Type Department Care Team Description 06/25/2024 9:15 AM EST [facility] Visit [facility] [address] [place] [phone] Dante Haynes RN SN DISCIPLINE DISCHARGE VISIT 06/24/2024 10:45 AM EST [facility] [address] [place] [address] Miya Monte, EFREM [place] HOME VISIT 06/19/2024 2:30 PM EST Office Visit [facility] Infectious Diseases [address] [place] [address] Dana Rucker, RN OUTPATIENT SURGERY C. difficile colitis (Primary Dx); Recurrent urinary tract infection 06/18/2024 4:30 PM EST Home Care Visit [facility] [address] [place] [address] Merly Matos, PT PT TFA VISIT 06/16/2024 9:30 AM EST Home Care Visit [facility] [address] [place] [address] Dante Haynes, RN SN HOME VISIT 06/10/2024 Refill [facility] [address] [place] [address] Keren Poon, REGULATORY COMPLIANCE ENGINEER Medication Refill 06/09/2024 10:30 AM EST Home Care Visit [facility] [address] [place] [address] Dante Haynes, RN SN HOME VISIT 06/09/2024 9:30 AM EST Home Care Visit [facility] [address] [place] [address] Miya Monte, EFREM [place] HOME VISIT 06/05/2024 11:00 AM EST Home Care Visit [facility] [address] [place] [address] Miya Monte, EFREM [place] HOME VISIT 06/02/2024 10:15 AM EST Home Care Visit [facility] [address] [place] [address] Miya Monte, [employer] [place] HOME VISIT 06/02/2024 9:00 AM EST Home [facility] [address] [place] [address] Dante Haynes RN SN HOME VISIT 05/29/2024 11:15 AM EST Home Care Visit [facility] [address] [place] [address] Miya Monte PTA [place] HOME VISIT 05/27/2024 2:00 PM EST Office Visit [facility] [address] [place] [address] Keren Poon, ORI Encounter for health maintenance examination in adult (Primary Dx); Encounter for screening for depression; Breast cancer screening by mammogram; Rheumatoid arthritis involving multiple sites, unspecified whether rheumatoid factor present; Occipital neuralgia of left side; Cervical radiculopathy; C. difficile colitis; Moderate episode of recurrent major depressive disorder; Atrophic vaginitis; OAB (overactive bladder); Urge incontinence of urine; Osteopenia of multiple sites; Obstructive sleep apnea, adult; Primary hypertension; Paroxysmal A-fib; Secondary hypercoagulable state; Aortic valve insufficiency, etiology of cardiac valve disease unspecified; IFG (impaired fasting glucose); Dyspnea on exertion; Acquired hypothyroidism; Generalized anxiety disorder; Mild Lewy body dementia with mood disturbance 05/27/2024 10:15 AM EST [facility] [address] [place] [address] Miya Monte PTA [place] HOME VISIT 05/26/2024 11:00 AM EST Home Care Visit [facility] [address] [place] [address] Dante Haynes RN SN HOME VISIT 05/22/2024 1:00 PM EST Home Care Visit [facility] [address] [place] [address] Asmita Montiel, PT PT EVALUATION 05/22/2024 1:00 PM EST Home Care Visit [facility] [address] [place] [address] Dante Haynes RN SN HOME VISIT 05/22/2024 Telephone [facility] Infectious Diseases [address] [place] [address] Dana Rucker FNP Medication Question (Vancomycin ) 05/21/2024 11:30 AM EST Office Visit [facility] Infectious Diseases [address] [place] [address] Adam Treadwell MD Markens, Beth Ashley, FNP C. difficile colitis (Primary Dx); Recurrent urinary tract infection; Urinary incontinence, unspecified type 05/21/[address] [place] [address] Keren Poon CNP Medication Refill 05/20/2024 9:15 AM EST [facility] [address] [place] [phone] Orlando Mckeon RN SN HOME VISIT 05/15/2024 [facility] [address] [place] [address] Paulina Garay, NANCY TELEPHONE ENCOUNTER 05/14/2024 12:00 PM EST Home Care Visit [facility] [address] [place] [phone] Andreas Reyes, RN SN OASIS START OF CARE (SOC) 05/14/2024 Plan of Care Documentation [facility] [address] [place] [phone] 05/14/[address] [place] [address] Keren Poon CNP Request For Order(s) 05/14/2024 Telephone [facility] Infectious Diseases [address] [place] [address] Dana Rucker FNP 05/13/2024 Procedure Pass [facility] Endoscopy Admitting Dept Virtual Department [address] [place] [phone] 05/13/2024 Telephone [facility] Infectious Diseases [address] [place] [address] Belinda Cho MA 05/13/2024 Orders Only [facility] [address] [place] [phone] Homehealth, Interface ProviderMD 05/09/2024 Procedure Pass [facility], Ct Scan - [facility] [address] [place] [phone] 05/07/2024 7:54 PM EST - 05/13/2024 6:17 PM EST Hospital Encounter [facility] [address] [place] [address] Marco Antonio Brooks, Gutierrez Kelly, David Acuña MD Lipkin-Moore, Zachary M, MD Zaman, Tonbira S, MD Arepally, Sandeep, MD Discharge Disposition: Home-Health Care [facility] 05/07/[address] [place] [address] Keren Poon CNP Yellow Call Diarrhea 05/01/2024 1:40 PM EST - 05/01/2024 11:59 PM EST Hospital Encounter [facility], X-Ray - [address] [place] [address] Argelia Taylor NP Discharge Disposition: Home or Self Care 05/01/2024 Ancillary Orders Virtual Department [address] [place] [phone] Argelia Taylor NP Lower abdominal pain (Primary Dx); Diarrhea, unspecified type; Bloating; Change in bowel habits 04/30/2024 2:30 PM EST Office Visit [address] [place] [address] Keren Poon CNP C. difficile colitis (Primary Dx); Acute cystitis without hematuria; Atrophic vaginitis; Rheumatoid arthritis involving multiple sites, unspecified whether rheumatoid factor present; Generalized abdominal pain 04/30/2024 Transcribe Orders Virtual Department [address] [place] [address] Argelia Taylor NP Lower abdominal pain (Primary Dx); Diarrhea, unspecified type; Bloating; Change in bowel habits 04/27/2024 10:15 AM EST Office Visit [address] [place] [address] Miriam Munson MD C. difficile colitis (Primary Dx); Atrophic vaginitis; Urinary tract infection without hematuria, site unspecified 04/25/2024 Telephone [facility] [address] [address] Julia Albright PA-C Labs (After hours neon molder) 04/24/[address] [place] [address] Keren Poon CNP Medication Refill 04/23/2024 2:02 PM EST - 04/23/2024 11:59 PM EST Hospital Encounter [facility] Laboratory [address] [place] [address] Keren Poon CNP Discharge Disposition: Home or Self Care 04/10/2024 12:55 AM EST - 04/16/2024 6:37 PM EST Hospital Encounter [facility] Medsurg [address] [address] Bre Amin MD Altman, Evan K, DO, MPH Pradip Choi MD Preston, Linda J, MD Kielbasa, Shasta A, MD Discharge Disposition: Home or Self Care 04/10/2024 Procedure Pass [address] [address] 04/10/[address] [address] 04/09/[address] [place] [address] Keren Poon CNP Urine kit question 04/08/2024 Refill [facility] Urgent Care at [address] [address] Reynold Butt PA-C Medication Refill 04/01/2024 5:13 PM EST - 04/01/2024 11:59 PM EST Hospital Encounter [facility], Ct Scan [address] [address] Jose Thakur MD Discharge Disposition: Home or Self Care 04/01/2024 Telephone [facility] [address] [place] [address] Leslee Stanley PA-C 03/30/2024 11:52 AM EST - 03/30/2024 3:32 PM EST Emergency [facility] [address] [place] [id number] Discharge Disposition: Home or Self Care 03/30/2024 10:10 AM EST Office Visit [facility] Care at [address] [place] [address] Karen Cannon PA-C, MS Acute cough (Primary Dx); Shortness of breath 03/17/2024 Procedure Pass [facility], Ct Scan [address] [address] from Last 3 Months Immunizations Name Administration Dates Next Due COVID-19 (Pre-02/18) Pfizer Vaccine, mRNA, mohan-sucrose, PF 09/11/2021 [id number] FORMULATION 05/13/2009 Influenza High-Dose Quadriva lent Preservative Free IM 03/07/2022 Influenza Quadrivalent Adjuv anted Preservative Free IM 02/12/2021 Influenza Quadrivalent Prese rvative Free IM 01/07/2020,02/03/2015,01/21/2014 Influenza Recombinant Prashant valent Preservative Free IM 03/09/2023 Influenza Trivalent Adjuvant ed Preservative free IM 02/26/2024 Influenza Trivalent Preserva tive Free IM 04/02/2012 Influenza Trivalent w/ Preservative IM 4,04/02/2002 Influenza, Unspecified Formulation 05/27,02/12/2009,02/28/2008,01/27 PPD Test 01/02/2017 Pneumococcal conjugate PCV13 09/27/2014 Pneumococcal polysaccharide PPSV23 07/10,10/11/2011,02/27/2007,06/26 Pneumococcal, Unspecified Formulation 02/27/2007 RSV Vaccine (bivalent) 03/11/2024 Td (adult),2 Lf Tetanus Toxo id, PF, Adsorbed 07/05/1997 Tdap 09/27/2014,04/14/2010 Family History Medical History Relation Comments Pancreatic cancer Father COPD Mother Cancer Mother Pneumonia Mother Pancreatic cancer Sister 1 Relation Status Comments Brother Alive Father pancreatic ca Mother Alive lung cancer Sister 1 (Age 58) pancreatic ca Sister 2 Alive Sister 3 Alive Sister 4 Alive Sister 5 Alive Sister 6 Alive Sister 7 Alive Social History Tobacco Use Types Packs/Day Years Used Date Smoking Tobacco: Never Smokeless Tobacco: Never Tobacco Cessation:Counseling Given: Not Answered Alcohol Use Standard Drinks/Week Comments Not Currently [...] Orientation Straight 09/27/2020 4: 02 PM EDT Last Filed Vital Signs Vital Sign Reading Time Taken Comments Blood Pressure 128/76 06/25/2024 9:21 AM EST Pulse 88 06/25/2024 9:21 AM EST Temperature 36.6 ??C (97.9 ??F) 06/25/2024 9:21 AM ES T Respiratory Rate 20 06/25/2024 9:21 AM EST Oxygen Saturation 95% 06/25/2024 9:21 AM EST Inhaled Oxygen Concentration - - Weight 75.8 kg (167 lb) 06/19/2024 2:24 PM EST Height 157.5 cm (5' 2 ) 05/27/2024 2:17 PM EST Body Mass Index 30.54 05/27/2024 2:17 PM EST Plan of Treatment Upcoming Encounters Date Type Department Care Team (Late st Contact Info) Description 06/06/2024 Procedure Pass [facility], [facility] [address] [place] [address] 06/26/2024 2:00 PM EST [facility] [address] [place] [phone] iMya Monte, [place] [address] [place] [address] 06/30/2024 1:15 PM EST [facility] [address] [place] [phone] Miya Monte, [place] [address] [place] [address] 07/01/2024 2:30 PM EST Office Visit [facility] Medicine [address] [place] [address] Jose Thakur MD [address] [place] [phone] 07/02/2024 2:15 AM EST [facility] [address] [place] [phone] Miya Monte, [place] [address] [place] [address] 07/07/2024 3:00 AM EDT Home Care Visit [facility] [address] [place] [phone] Miya Monte, [place] [address] [place] [address] 07/09/2024 12:45 AM EDT [facility] [address] [place] [phone] Merly Matos, PT [address] [place] [address] 07/30/2024 3:30 PM EDT Office Visit [address] [place] [address] Keren Poon, ORI [address] [place] [address] 09/18/2024 2:30 PM EDT Office Visit [facility] Infectious Diseases [address] [place] [address] Dana Rucker, RN OUTPATIENT SURGERY [address] [address] 11/26/2024 3:30 PM EDT Office Visit [address] [place] [address] Keren Poon, ORI [address] [place] [phone] 12/11/2024 2:00 PM EDT Appointment [address] [address] Keren Poon, ORI [address] [place] [phone] 06/03/2025 2:00 PM EST Office Visit [address] [place] [address] Keren Poon, ORI [address] [place] [phone] Health Maintenance Due Date Last Done Comments ZOSTER VACCINES (1 of 2) 1974 COLOGUARD 01/18/2000 COLONOSCOPY 01/18/2000 COLORECTAL CANCER SCREENING 01/18/2000 FIT TEST 01/18/2000 FOBT 01/18/2000 SIGMOIDOSCOPY 01/18/2000 VIRTUAL COLONOSCOPY 01/18/2000 MAMMOGRAM 07/28/2023 07/27/2021, 02/27, 05/15/2016, Additional history exists Adult Td,Tdap Booster 09/27/2024 09/27/2014 , 04/14/2010, 07/05/1997 BLOOD PRESSURE 12/23/2024 06/25/2024 LIPID PANEL 01/01/2025 01/02/2024, 06/27, 07/13/2021, Additional history exists TSH LEVEL 01/01/2025 01/02/2024, 05/30, 07/13/2021, Additional history exists CREATININE LEVEL 05/13/2025 05/13/2024, , 05/12/2024, Additional history exists POTASSIUM LEVEL 05/13/2025 05/13/2024, 04/29, 05/12/2024, Additional history exists DEPRESSION SCREENING 05/27/2025 05/27/2024, 05/09/19 24 SCREENING FOR DIABETES 05/13/2027 05/13/2024, 2022 OSTEOPOROSIS SCREENING INITIAL (ONE-TIME) Completed 04/25/2021, 12/05/2018 PNEUMOCOCCAL VACCINES (50+ years) Completed 07/10/2021, 09/27/2014, 10/11/2011, Additional history exists HEPATITIS B SCREENING Completed 01/05/2022, 021 HEPATITIS C SCREENING Completed 07/25/2022 , 01/05/2022, 11/15/2020, Additional history exists COVID-19 VACCINE Completed 02/26/2024, 02/2023, 04/13/2022, Additional history exists INFLUENZA VACCINE Completed 02/26/2024, , 03/07/2022, Additional history exists RSV VACCINE Completed 03/11/2024 SMOKING STATUS SCREENING (Once After 26 Yrs) Completed 06/06/2024 HEPATITIS A VACCINES Aged Out No long er eligible based on patient's age to complete this topic HEPATITIS B VACCINES Aged Out No long er eligible based on patient's age to complete this topic HIB VACCINES Aged Out No longer eligi ble based on patient's age to complete this topic MENINGOCOCCAL VACCINES (ACWY) Aged Out No longer eligible based on patient's age to complete this topic Medical Devices Implanted Type Area Pulp Screen Operator Device Identifier Shelf Expiration Date Model / Serial / Lot Screw Bone 2.4x28mm Compression Long Thread Headless - [id number] Implanted:Qty: 2 on 12/20/2017 by Patrick Sanchez MD at [facility] NODATA Right: Hand SYNTHES [id number] 28 / / Stem Finger Size 20 Metacarpophalangeal Distal Silicone Preflexed - [id number] Implanted:Qty: 1 on 12/20/2017 by Patrick Sanchez MD at [facility] STANDARD Right: Hand [employer] MJ 02/27/2020 [id number] / / [id number] Stem Finger Size 20 Metacarpophalangeal Distal Silicone Preflexed - [id number] Implanted:Qty: 1 on 12/20/2017 by Patrick Sanchez MD at [facility] STANDARD Right: Hand [employer] MJ 08/27/2019 [id number] / / [id number] Stem Finger Joint Metacarpophalangeal Size 10 Silicone Preflexed- Duplicate - Use Ps # [id number] - [id number] Implanted:Qty: 1 on 12/20/2017 by Patrick Sanchez MD at [facility] STANDARD Right: Hand [employer] MJ 02/27/2020 [id number] / / [id number] Implant Finger Size 5 Pre Flexed Cementless Mcp Pyrocarbon Silicone - [id number] Implanted:Qty: 1 on 12/20/2017 by Patrick Sanchez MD at [facility] STANDARD Right: Hand [employer] MJ 02/27/2020 [id number] / / [id number] Right Ankle,Hand,Elbow Left Hand Procedures Procedure Name Priority Date/Time Associated Diagnosis Comments PHOSPHORUS Timed 05/13/2024 2:09 PM EST BASIC METABOLIC PANEL Timed 05/13/2024 2:09 PM EST PHOSPHORUS Routine 05/13/2024 6:30 AM EST MAGNESIUM Routine 05/13/2024 6:30 AM EST BASIC METABOLIC PANEL Routine 05/13/2024 6:30 AM EST CBC Routine 05/13/2024 6:30 AM EST PHOSPHORUS Routine 05/12/2024 5:25 AM EST MAGNESIUM Routine 05/12/2024 5:25 AM EST BASIC METABOLIC PANEL Routine 05/12/2024 5:25 AM EST CBC Routine 05/12/2024 5:25 AM EST ECG 12-LEAD STAT 05/11/2024 3:26 PM EST PHOSPHORUS Routine 05/11/2024 5:44 AM EST MAGNESIUM Routine 05/11/2024 5:44 AM EST BASIC METABOLIC PANEL Routine 05/11/2024 5:44 AM EST CBC AND DIFFERENTIAL Routine 05/11/2024 5:44 AM EST C-REACTIVE PROTEIN Routine 05/10/2024 4: 24 AM EST PHOSPHORUS Routine 05/10/2024 4:24 AM EST MAGNESIUM Routine 05/10/2024 4:24 AM EST BASIC METABOLIC PANEL Routine 05/10/2024 4:24 AM EST CBC AND DIFFERENTIAL Routine 05/10/2024 4:24 AM EST PHOSPHORUS STAT 05/10/2024 12:21 AM EST MAGNESIUM STAT 05/10/2024 12:21 AM EST BASIC METABOLIC PANEL STAT 05/10/2024 12:[address] ABDOMEN/PELVIS WITH CONTRAST Routine 05/09/2024 2:49 PM EST PHOSPHORUS Routine 05/09/2024 4:01 AM EST MAGNESIUM Routine 05/09/2024 4:01 AM EST COMPREHENSIVE METABOLIC PANEL Routine 05/09/2024 4:01 AM EST CBC AND DIFFERENTIAL Routine 05/09/2024 4:01 AM EST MAGNESIUM Routine 05/08/2024 4:52 AM EST PHOSPHORUS Routine 05/08/2024 4:52 AM EST CBC AND DIFFERENTIAL Routine 05/08/2024 4:52 AM EST BASIC METABOLIC PANEL Routine 05/08/2024 4:52 AM EST C. DIFFICILE ANTIGEN/TOXIN ASSAY STAT 05/07/2024 9:57 PM EST STOOL CULTURE STAT 05/07/2024 9:57 PM EST C. DIFFICILE PCR STAT 05/07/2024 9:57 PM EST PT-INR STAT 05/07/2024 5:16 PM EST LIPASE STAT 05/07/2024 5:16 PM EST LFTS (HEPATIC PANEL) STAT 05/07/2024 5:16 PM EST BASIC METABOLIC PANEL STAT 05/07/2024 5:16 PM EST CBC AND DIFFERENTIAL STAT 05/07/2024 5:16 PM EST URINE SEDIMENT STAT 05/07/2024 4:55 PM EST URINALYSIS W/REFLEX URINE CULTURE STAT 05/07/2024 4:55 PM EST URINE CULTURE Routine 05/07/2024 4:55 PM EST XR ABDOMEN SERIES SUPINE WITH DECUBITIS/ERECT AND SINGLE VIEW CHEST Routine 05/01/2024 2:12 PM EST Lower abdominal pain Diarrhea, unspecified type Bloating Change in bowel habits URINE SEDIMENT Routine 04/23/2024 2:02 PM EST URINALYSIS W/REFLEX URINE CULTURE Routine 04/23/2024 2:02 PM EST Acute cystitis without hematuria URINE CULTURE Routine 04/23/2024 2:02 PM EST BASIC METABOLIC PANEL Routine 04/16/2024 7:13 AM EST CBC AND DIFFERENTIAL Routine 04/16/2024 7:13 AM EST POCT GLUCOSE Routine 04/15/2024 4:19 PM EST IP CONSULT TO WOUND NURSE Routine 04/14/2024 2:22 PM EST URINALYSIS WITH SEDIMENT Routine 11:25 AM EST URINE CULTURE Routine 04/14/2024 11:25 AM EST ALANINE AMINOTRANSFERASE (ALT) Routine 04/13/2024 5:35 AM EST MAGNESIUM Routine 04/13/2024 5:35 AM EST BASIC METABOLIC PANEL Routine 04/13/2024 5:35 AM EST C-REACTIVE PROTEIN Routine 04/13/2024 5: 35 AM EST CBC Routine 04/13/2024 5:35 AM EST CBC Routine 04/12/2024 5:56 AM EST BASIC METABOLIC PANEL Routine 04/12/2024 5:56 AM EST C-REACTIVE PROTEIN Routine 04/12/2024 5: 56 AM EST CBC AND DIFFERENTIAL Routine 04/11/2024 7:13 AM EST BASIC METABOLIC PANEL Routine 04/11/2024 7:[address] HEAD WITHOUT CONTRAST STAT 3:26 PM EST OVA AND PARASITES, STOOL STAT 12:20 PM EST C. DIFFICILE ANTIGEN/TOXIN ASSAY Routine 04/10/2024 4:20 AM EST STOOL CULTURE STAT 04/10/2024 4:20 AM EST C. DIFFICILE PCR STAT 04/10/2024 4:20 AM EST LACTIC ACID (LACTATE) STAT 04/10/2024 3:29 AM EST URINALYSIS W/REFLEX URINE CULTURE STAT 04/10/2024 2:[address] ABDOMEN/PELVIS WITH CONTRAST Routine 04/10/2024 2:42 AM EST ECG 12-LEAD STAT 04/10/2024 1:14 AM EST C-REACTIVE PROTEIN Routine 04/10/2024 12 :59 AM EST PT-INR STAT 04/10/2024 12:59 AM EST LIPASE STAT 04/10/2024 12:59 AM EST LFTS (HEPATIC PANEL) STAT 04/10/2024 12:59 AM EST BASIC METABOLIC PANEL STAT 04/10/2024 12:59 AM EST CBC AND DIFFERENTIAL STAT 04/10/2024 12:59 AM EST COVID PANDEMIC RESPIRATORY VIRAL ORDER (PRO) STAT 04/10/2024 12:[address] CHEST (HIGH RESOLUTION) WITHOUT CONTRAST Routine 04/01/2024 5:33 PM EST Persistent cough URINE SEDIMENT STAT 03/30/2024 1:30 PM EST URINALYSIS W/REFLEX URINE CULTURE STAT 03/30/2024 1:30 PM EST URINE CULTURE Routine 03/30/2024 1:30 PM EST C-REACTIVE PROTEIN STAT 03/30/2024 1: 21 PM EST MAGNESIUM STAT 03/30/2024 1:21 PM EST LFTS (HEPATIC PANEL) STAT 03/30/2024 1:21 PM EST BASIC METABOLIC PANEL STAT 03/30/2024 1:21 PM EST CBC AND DIFFERENTIAL STAT 03/30/2024 1:21 PM EST XR CHEST PA AND LATERAL 2 VIEWS STAT 03/30/2024 1:09 PM EST ECG 12-LEAD STAT 03/30/2024 12:55 PM EST POCT COVID-19 RT-PCR/INFLUENZA A & B/RSV CEPHEID Routine 03/30/2024 11:04 AM EST Acute cough POCT STREP A PCR CEPHEID Routine 024 11:04 AM EST Acute cough LIPID PANEL Routine 01/02/2024 2:12 PM EDT Primary hypertension TSH WITH REFLEX Routine 01/02/2024 2:12 PM EDT Hypothyroidism, unspecified type HEPATITIS C ANTIBODY, QUALITATIVE Routine 01/05/2022 1:56 PM EDT Rheumatoid arthritis involving multiple sites with positive rheumatoid factor HEPATITIS B SURFACE ANTIGEN Routine 01/05/2022 1:56 PM EDT Rheumatoid arthritis involving multiple sites with positive rheumatoid factor BI MAMMOGRAM SCREENING WITH TOMOSYNTHESIS WITH CAD (BILATERAL) Routine 07/27/2021 2:37 PM EDT Encounter for screening mammogram for malignant neoplasm of breast BD DXA AXIAL (SPINE) WITH HIP Routine 04/25/2021 2:45 PM EST Corticosteroid-maximiliano sarah osteoporosis from Last 3 Months or Most Recently Relevant to Health Maintenance Results * (ABNORMAL) Phosphorus (05/13/2024 2:09 PM EST) Only the most recent of8 resultswithin the time period is included. Pathologist [facility] PHOSPHORUS 2.5(L) 2.7 - 4.5 mg/dL [facility] Blood 05/13/2024 2:09 PM EST 05/13/2024 2:11 PM EST Cheryl Walker NP LAB BLOOD ORDERA BLES [facility] [address] [place] [address] * (ABNORMAL) Basic metabolic panel (05/13/2024 2:09 PM EST) Only the most recent of14 resultswithin the time period is included. Pathologist [facility] SODIUM 145 133 - 146 mmol/L [facility] CHLORIDE 107 96 - 108 mmol/L [facility] POTASSIUM 3.7 3.3 - 5.1 mmol/L [facility] CO2 27 21 - 35 mmol/L [facility] BUN 5(L) 6 - 19 mg/dL [facility] CREATININE 0.40(L) 0.5 - 1.5 mg/dL [facility] GLUCOSE 129(H) 70 - 99 mg/dL [facility] CALCIUM 9.6 8.4 - 10.3 mg/dL [facility] EGFR 107 >59 mL/min/1.7 3m2 [facility] Comment:Estimated glomerular filtration rate calculated using the CKD-EPI refit equation. ANION GAP 15 10 - 20 mmol/L [facility] Blood 05/13/2024 2:09 PM EST 05/13/2024 2:11 PM EST Cheryl Vo Aaron CARGO WORKER LAB BLOOD ORDERA BLES Performing Organization Address City/State/[facility] Co de Phone Number [address] [address] * (ABNORMAL) CBC (05/13/2024 6:30 AM EST) Only the most recent of4 resultswithin the time period is included. WBC 7.03 4.00 - 11.00 K/uL [facility] RBC 4.46 4.00 - 5.20 M/uL [facility] HGB 13.1 12.0 - 16.0 g/dL [facility] HCT 41.2 36.0 - 46.0 % [facility] PLT 174 150 - 450 K/uL [facility] MCV 92.4 80.0 - 100.0 [facility] MCH 29.4 27.0 - 31.0 pg [facility] MCHC 31.8(L) 32.0 - 36.0 g/dL [facility] RDW 14.6(H) 11.5 - 14.5 % [facility] MPV 10.5 8.4 - 12.0 [facility] NRBC 0.00 0.00 /100 WBCs [facility] ABSOLUTE NRBC 0.00 0.00 K/uL [facility] Blood 05/13/2024 6:30 AM EST 05/13/2024 6:44 AM EST Cheryl Walker CARGO WORKER LAB BLOOD ORDERA BLES Performing Organization Address [facility] Co de Phone Number [address] [address] * Magnesium (05/13/2024 6:30 AM EST) Only the most recent of9 resultswithin the time period is included. MAGNESIUM 1.7 1.6 - 2.6 mg/dL [facility] Blood 05/13/2024 6:30 AM EST 05/13/2024 6:44 AM EST Cheryl Walker CARGO WORKER LAB BLOOD ORDERA BLES Performing Organization Address [facility] de Phone Number [address] [address] * ECG 12-LEAD (05/11/2024 3:26 PM EST) Only the most recent of3 resultswithin the time period is included. Ventricular Rate EKG/MIN 75 BPM [facility] Atrial Rate 75 BPM [facility] ND Interval 174 ms [facility] QRS Duration 92 ms [facility] QT Interval 406 ms [facility] QTC Interval 453 ms [facility] P [place] 33 degrees [facility] R Wave [place] -4 degrees [facility] T Wave [place] 35 degrees [facility] 05/11/2024 3:26 PM EST 05/12/2024 11:43 AM EST Narrative [facility] - 05/12/2024 11:43 AM EST Normal sinus rhythm Normal ECG When compared with ECG of 10-Apr-2024 01:14, No significant change was found Confirmed by Mario Coyle ([id number]) on 05/12/2024 11:43:53 AM Cheryl Walker CARGO WORKER ECG ORDERABLES Performing Organization Address [facility] Co de Phone Number [email or web address] * (ABNORMAL) CBC and differential (05/11/2024 5:44 AM EST) Only the most recent of9 resultswithin the time period is included. WBC 6.20 4.00 - 11.00 K/uL [facility] RBC 4.10 4.00 - 5.20 M/uL [facility] HGB 12.1 12.0 - 16.0 g/dL [facility] HCT 38.0 36.0 - 46.0 % [facility] PLT 205 150 - 450 K/uL [facility] MCV 92.7 80.0 - 100.0 fL [facility] MCH 29.5 27.0 - 31.0 pg [facility] MCHC 31.8(L) 32.0 - 36.0 g/dL [facility] RDW 14.6(H) 11.5 - 14.5 % [facility] MPV 9.4 8.4 - 12.0 fL [facility] NRBC 0.00 0.00 /100 WBCs [facility] ABSOLUTE NRBC 0.00 0.00 K/uL [facility] DIFF METHOD Auto [facility] NEUTS 56.4 48.0 - 76.0 % [facility] LYMPHS 20.6 18.0 - 41.0 % [facility] MONOS 14.8(H) 4.0 - 11.0 % [facility] EOS 7.3(H) 0.0 - 5.0 % [facility] BASOS 0.3 0.0 - 1.5 % [facility] Granulocytes, immature (%) 0.6 0.0 - 0.9 % [facility] ABSOLUTE NEUTS 3.49 1.92 - 7.60 K/uL [facility] ABSOLUTE LYMPHS 1.28 0.72 - 4.10 K/uL [facility] ABSOLUTE MONOS 0.92 0.16 - 1.10 K/uL [facility] ABSOLUTE EOS 0.45 0.00 - 0.50 K/uL [facility] ABSOLUTE BASOS 0.02 0.00 - 0.15 K/uL [facility] Granulocytes, immature 0.04 0.00 - 0.09 K/uL [facility] Blood 05/11/2024 5:44 AM EST 05/11/2024 6:03 AM EST Abel Coreas PA-C, MS LAB BLOOD ORDER LEDY [address] [address] * (ABNORMAL) C-Reactive Protein (05/10/2024 4:24 AM EST) Only the most recent of5 resultswithin the time period is included. C REACTIVE PROTEIN 112.5(H) 0.0 - 4.0 mg/L [facility] Blood 05/10/2024 4:24 AM EST 05/10/2024 4:38 AM EST Abel Coreas PA-C, MS LAB BLOOD ORDER LEDY Performing Organization Address City/[facility]/ZIP Co de Phone Number [address] [address] * CT ABDOMEN/PELVIS WITH CONTRAST (05/09/2024 2:49 PM EST) Anatomical Region Laterality Modality Abdomen, Pelvis Computed Tomogra phy 05/09/2024 4:42 PM EST Impressions 05/09/2024 4:49 PM EST 1. ??Redemonstration of findings of colitis, similar to prior, again most pronounced at the sigmoid colon. Findings may again be infectious versus inflammatory in etiology. 2. ??Similar indeterminate left upper pole renal lesion. Outpatient CT or MRI renal mass protocol may be considered for further characterization. 3. ??Left lower lobe consolidative opacity may reflect atelectasis, superimposed infection cannot be excluded. Narrative 05/09/2024 4:[address] ABDOMEN/PELVIS WITH CONTRAST Referring clinician's provided indication for this examination in Epic: * Infectious gastroenteritis or colitis TECHNIQUE: Multidetector-row CT of the abdomen and pelvis was performed after administration of intravenous contrast using tailored dose modulation techniques. Images were reconstructed in the axial, coronal, and sagittal planes. COMPARISON: CT ABDOMEN/PELVIS WITH CONTRAST FINDINGS: Lower Chest: Consolidative airspace opacity at the right lower lobe. Atelectasis at the right middle and right lower lobes. 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 Liver: No focal lesions. Biliary: Prior cholecystectomy. Similar moderate intra and extrahepatic biliary ductal dilatation. Spleen: No splenomegaly or focal lesions. Pancreas: Redemonstration of pancreatic lipoatrophy. No masses or ductal dilatation. Adrenal Glands: No nodules. Kidneys/Ureters: There is a similar 1.2 cm indeterminate left upper pole renal lesion. Similar 6 mm calculus at the left mid kidney. No hydronephrosis. Cyst at the left mid kidney. Redemonstration of multifocal renal cortical scarring, right greater than left. Bowel: Redemonstration of diffuse mural thickening of the colon most pronounced at the sigmoid colon again with associated mucosal hyperemia, engorgement of the vasa recta and pericolonic fat. The overall extent is similar as compared to the prior study. Normal appendix. Small hiatal hernia. Peritoneum/Retroperitoneum: No masses, pneumoperitoneum, or fluid. Lymph Nodes: No lymphadenopathy. Pelvic Organs/Bladder: The urinary bladder is mildly distended. No bladder wall thickening. Vessels: Atherosclerotic calcification of the aorta and major aortic branch vessels. No abdominal aortic aneurysm. Bones/Soft Tissues: Redemonstration of L1 burst fracture again with severe loss of vertebral body height and osseous retropulsion. Similar moderate compression deformity at T12. Mild loss of vertebral body height superiorly also again demonstrated at T8. Multilevel degenerative changes of the spine. No destructive osseous lesions. Procedure Note Dayana Doran MD - 05/09/2024 CT ABDOMEN/PELVIS WITH CONTRAST Referring clinician's provided indication for this examination in Epic: *Infectious gastroenteritis or colitis TECHNIQUE: Multidetector-row CT of the abdomen and pelvis was performedafter administration of intravenous contrast using tailored dosemodulation techniques. Images were reconstructed in the axial, coronal,and sagittal planes. COMPARISON: CT ABDOMEN/PELVIS WITH CONTRAST FINDINGS: Lower Chest: Consolidative airspace opacity at the right lower lobe.Atelectasis at the right middle and right lower lobes. Redemonstration oflarge anterior fat-containing Morgagni hernia. Liver: No focal lesions. Biliary: Prior cholecystectomy. Similar moderate intra and extrahepaticbiliary ductal dilatation. Spleen: No splenomegaly or focal lesions. Pancreas: Redemonstration of pancreatic lipoatrophy. No masses or ductaldilatation. Adrenal Glands: No nodules. Kidneys/Ureters: There is a similar 1.2 cm indeterminate left upper polerenal lesion. Similar 6 mm calculus at the left mid kidney. Nohydronephrosis. Cyst at the left mid kidney. Redemonstration of multifocalrenal cortical scarring, right greater than left. Bowel: Redemonstration of diffuse mural thickening of the colon mostpronounced at the sigmoid colon again with associated mucosal hyperemia,engorgement of the vasa recta and pericolonic fat. The overall extent issimilar as compared to the prior study. Normal appendix. Small hiatalhernia. Peritoneum/Retroperitoneum: No masses, pneumoperitoneum, or fluid. Lymph Nodes: No lymphadenopathy. Pelvic Organs/Bladder: The urinary bladder is mildly distended. No bladderwall thickening. Vessels: Atherosclerotic calcification of the aorta and major aorticbranch vessels. No abdominal aortic aneurysm. Bones/Soft Tissues: Redemonstration of L1 burst fracture again with severeloss of vertebral body height and osseous retropulsion. Similar moderatecompression deformity at T12. Mild loss of vertebral body heightsuperiorly also again demonstrated at T8. Multilevel degenerative changesof the spine. No destructive osseous lesions. IMPRESSION: 1. Redemonstration of findings of colitis, similar to prior, again mostpronounced at the sigmoid colon. Findings may again be infectious versusinflammatory in etiology. 2. Similar indeterminate left upper pole renal lesion. Outpatient CT orMRI renal mass protocol may be considered for further characterization. 3. Left lower lobe consolidative opacity may reflect atelectasis,superimposed infection cannot be excluded. Abel Coreas PA-C, MS IMG CT ABD/PELV IS * (ABNORMAL) Comprehensive metabolic panel (05/09/2024 4:01 AM EST) SODIUM 141 133 - 146 mmol/L [facility] POTASSIUM 3.0(L) 3.3 - 5.1 mmol/L [facility] CHLORIDE 108 96 - 108 mmol/L [facility] CO2 24 21 - 35 mmol/L [facility] BUN 14 6 - 19 mg/dL [facility] CREATININE 0.50 0.5 - 1.5 mg/dL [facility] GLUCOSE 129(H) 70 - 99 mg/dL [facility] ALBUMIN 3.2(L) 3.9 - 4.8 g/dL [facility] TOTAL PROTEIN 5.1(L) 6.5 - 8.0 g/dL [facility] CALCIUM 8.2(L) 8.4 - 10.3 mg/dL [facility] ALKALINE PHOSPHATASE 62 39 - 117 U/L [facility] TOTAL BILIRUBIN 0.6 0.0 - 1.2 mg/dL [facility] AST 25 0 - 37 U/L [facility] ALT 36 0 - 40 U/L [facility] GLOBULIN 1.9 1 - 4.8 g/dL [facility] EGFR 101 >59 mL/min/1.7 3m2 [facility] Comment:Estimated glomerular filtration rate calculated using the CKD-EPI refit equation. ANION GAP 12 10 - 20 mmol/L [facility] Blood 05/09/2024 4:01 AM EST 05/09/2024 4:26 AM EST Joann Michael CARGO WORKER LAB BLOOD ORDER LEDY [facility] [address] [place] [address] * (ABNORMAL) C. DIFFICILE PCR (05/07/2024 9:57 PM EST) Only the most recent of2 resultswithin the time period is included. C.DIFFICILE PCR Positive(A) Negative [facility] Comment:C.difficile gene was detected. C.difficile toxin assay has been reflexed. See separate report. C.DIFFICILE STRAIN PRESUMPTIVE NEGATIVE PRESUMPTIVE NEGATIVE [facility] Comment:Detection of 027/NAP 1/BI strains of C.difficile is presumptive and is solely for epidemiological purposes and is not intended to guide or monitor treatment of infections. Stool (Stool) 05/07/2024 9:5 7 PM EST 05/07/2024 10:14 PM EST Marco Antonio Brooks DO MICROBIOLOGY - GENER AL ORDERABLES Performing Organization Address [facility] de Phone Number [address] [address] * (ABNORMAL) Clostridioides (Clostridium) difficile Antigen/Toxin Assay (05/07/2024 9:57 PM EST) Only the most recent of2 resultswithin the time period is included. C. diff GDH Positive(A) Negative [facility] C. DIFFICILE TOXIN POSITIVE for Clostridium difficile toxin.(A) NEGATIVE for Clostridium difficile toxin. [facility] 05/07/2024 9:57 PM EST 05/07/2024 10:14 PM EST [place] Ana CheryBrooks DO MICROBIOLOGY - GENER AL ORDERABLES Performing Organization Address [facility] de Phone Number [address] [address] * Stool culture (05/07/2024 9:57 PM EST) Only the most recent of2 resultswithin the time period is included. Special Requests None 05/07/2024 9:57 PM EST [facility] Stool Culture NO SALMONELLA, SHIGELLA OR CAMPYLOBACTER ISOLATED 05/11/2024 7:55 AM EST [facility] Stool (Stool) 05/07/2024 9:5 7 PM EST 05/07/2024 10:46 PM EST Marco Antonio G Todd STEWART MICROBIOLOGY - GENER AL ORDERABLES Performing Organization Address [facility] de Phone Number [address] [address] * (ABNORMAL) LFTs (hepatic panel) (05/07/2024 5:16 PM EST) Only the most recent of3 resultswithin the time period is included. ALKALINE PHOSPHATASE 59 39 - 117 U/L [facility] TOTAL BILIRUBIN 0.5 0.0 - 1.2 mg/dL [facility] DIRECT BILIRUBIN <0.2 0 - 0.3 mg/dL [facility] Bilirubin (Indirect) NOT CALCULATED 0 - 1.5 mg/dL [facility] AST 23 0 - 37 U/L [facility] ALT 23 0 - 40 U/L [facility] TOTAL PROTEIN 6.3(L) 6.5 - 8.0 g/dL [facility] ALBUMIN 3.8(L) 3.9 - 4.8 g/dL [facility] GLOBULIN 2.5 1 - 4.8 g/dL [facility] A/G Ratio 1.52 1.00 - 4.80 RATIO [facility] Blood 05/07/2024 5:16 PM EST 05/07/2024 5:20 PM EST Ton Fischer MD LAB BLOOD ORDERABLE S Performing Organization Address [facility]/ZIP Co de Phone Number [address] [address] * (ABNORMAL) PT-INR (05/07/2024 5:16 PM EST) Only the most recent of2 resultswithin the time period is included. PT 14.3(H) 10.2 - 12.9 sec [facility] INR 1.3(H) 0.9 - 1.1 [facility] Comment:Therapeutic range fo r oral Vitamin K antagonists: 2.0-3.5 Blood 05/07/2024 5:16 PM EST 05/07/2024 5:20 PM EST Ton Fischer MD LAB BLOOD ORDERABLE S [address] [address] * (ABNORMAL) Lipase (05/07/2024 5:16 PM EST) Only the most recent of2 resultswithin the time period is included. LIPASE 12(L) 16 - 63 U/L [facility] Blood 05/07/2024 5:16 PM EST 05/07/2024 5:20 PM EST Ton Fischer MD LAB BLOOD ORDERABLE S Performing Organization Address City/[facility]/ZIP Co de Phone Number [address] [address] * (ABNORMAL) Urinalysis w/reflex Urine Culture (05/07/2024 4:55 PM EST) Only the most recent of4 resultswithin the time period is included. COLOR Yellow Yellow [facility] CLARITY HAZY [facility] GLUCOSE Negative Negative [facility] BILI Negative Negative [facility] KETONES Negative Negative [facility] SPECIFIC GRAVITY <1.005 1.005 - 1.030 [facility] BLOOD Negative Negative [facility] PH 6.0 5.0 - 8.0 [facility] Protein-UA Negative Negative [facility] NITRITE Positive(A) Negative [facility] Leukocyte esterase, ur 2+(A) Negative [facility] Urine (Urine) 05/07/2024 4:5 5 PM EST 05/07/2024 6:31 PM EST Ton Fischer MD URINE ORDERABLES Performing Organization Address [facility] Co de Phone Number [address] [address] * (ABNORMAL) Urine Culture (05/07/2024 4:55 PM EST) Only the most recent of4 resultswithin the time period is included. Special Requests None Reflexed from [id number] 05/07/2024 6:46 PM EST [facility] Urine Culture >100,000 colony forming units per mL MIXED RAVEN (3 OR MORE COLONY TYPES) Culture indicates contamination. Please resubmit if necessary. Isolates include 3 morphologies of enteric Gram negative rods and gram positive cocci.(A) 05/10/2024 10:06 AM EST [facility] Urine 05/07/2024 4:55 PM EST 05/07/2024 6:31 PM EST Ton Fischer MD MICROBIOLOGY - GENE RAL ORDERABLES Performing Organization Address [facility] Co de Phone Number [address] [address] * (ABNORMAL) Urine sediment (05/07/2024 4:55 PM EST) Only the most recent of3 resultswithin the time period is included. WBC 21-49(A) NONE SEEN /hpf [facility] RBC 3-5(A) NONE SEEN /hpf [facility] URINE EPITHELIAL 5-10(A) NONE SEEN [facility] MUCUS NONE SEEN NONE SEEN /hpf [facility] BACTERIA 3+(A) NONE SEEN /hpf [facility] YEAST 1+(A) NONE SEEN /hpf [facility] 05/07/2024 4:55 PM EST 05/07/2024 6:31 PM EST Ton Fischer MD URINE ORDERABLES Performing Organization Address [facility] Co de Phone Number [address] [address] * XR Abdomen Series Supine with Decubitus/Erect [...] evidence of obstruction or pneumoperitoneum. Argelia Taylor CARGO WORKER IMG XR ABDOMEN * (ABNORMAL) POCT Glucose (04/15/2024 4:19 PM EST) Glucose, POCT 128(H) 70 - 100 mg/dL [facility] 04/15/2024 4:19 PM EST 04/15/2024 4:24 PM EST Belle Cárdenas MD POINT OF CARE TEST ORDERABLES [facility] [address] [place] [address] * (ABNORMAL) URINALYSIS WITH SEDIMENT (04/14/2024 11:25 AM EST) WBC 50-100(A) NONE SEEN /hpf [facility] RBC 0-2(A) NONE SEEN /hpf [facility] URINE EPITHELIAL 0-4(A) NONE SEEN [facility] MUCUS 1+(A) NONE SEEN /hpf [facility] BACTERIA 1+(A) NONE SEEN /hpf [facility] COLOR Yellow Yellow [facility] CLARITY HAZY [facility] GLUCOSE Negative Negative [facility] BILI Negative Negative [facility] KETONES Negative Negative [facility] SPECIFIC GRAVITY 1.015 1.005 - 1.030 [facility] BLOOD Trace(A) Negative [facility] PH 5.5 5.0 - 8.0 [facility] Protein-UA Negative Negative [facility] NITRITE Positive(A) Negative [facility] Leukocyte esterase, ur 2+(A) Negative [facility] Urine (Urine) 04/14/2024 11: 25 AM EST 04/14/2024 1:36 PM EST Elida Crespo MD URINE ORDERABLES Performing Organization Address City/[facility] Co de Phone Number [address] [address] * Alanine aminotransferase (ALT) (04/13/2024 5:35 AM EST) ALT 25 0 - 40 U/L [facility] 04/13/2024 5:35 AM EST 04/13/2024 5:58 AM EST Yoly Wilson DO, MPH LAB BLOOD ORDERABL ES Performing Organization Address [facility] Co de Phone Number [address] [address] * CT HEAD WITHOUT CONTRAST (04/10/2024 3:26 PM EST) Anatomical Region Laterality Modality Head Computed Tomogra phy 04/10/2024 3:35 PM EST Impressions 04/10/2024 3:38 PM EST 1. ??No acute intracranial findings. Narrative 04/10/2024 3:[address] HEAD WITHOUT CONTRAST Referring clinician's provided indication for this examination in [facility]: * Neuro deficit, acute, stroke suspected TECHNIQUE: Multidetector-row CT of the head was performed without intravenous contrast using tailored dose modulation techniques. Images were reconstructed in the axial, coronal, and sagittal planes. COMPARISON: CT HEAD WITHOUT CONTRAST FINDINGS: Brain Parenchyma: ??There is no mass-effect, midline shift, or space-occupying lesion. ?? There is no acute territorial infarct or intracranial hemorrhage. ?? There are scattered foci of hypodensity in the subcortical and periventricular white matter, a non-specific finding but likely reflecting a manifestation of small vessel disease. Ventricular System and Extra-Axial Spaces: The ventricles, sulci and cisterns are age-appropriate. There is no extra-axial fluid collection. Osseous and Extracranial Structures: There is no displaced calvarial fracture. The visualized paranasal sinuses are clear. ??The mastoid air cells are clear. ??The orbits and soft tissues are unremarkable. Severe bilateral TMJ arthropathy. Procedure Note Breezy Stoddard MD - 04/10/2024 CT HEAD WITHOUT CONTRAST Referring clinician's provided indication for this examination in [facility]: *Neuro deficit, acute, stroke suspected TECHNIQUE: Multidetector-row CT of the head was performed withoutintravenous contrast using tailored dose modulation techniques. Imageswere reconstructed in the axial, coronal, and sagittal planes. COMPARISON: CT HEAD WITHOUT CONTRAST FINDINGS: Brain Parenchyma: There is no mass-effect, midline shift, orspace-occupying lesion. There is no acute territorial infarct orintracranial hemorrhage. There are scattered foci of hypodensity in thesubcortical and periventricular white matter, a non-specific finding butlikely reflecting a manifestation of small vessel disease. Ventricular System and Extra-Axial Spaces: The ventricles, sulci andcisterns are age-appropriate. There is no extra-axial fluid collection. Osseous and Extracranial Structures: There is no displaced calvarialfracture. The visualized paranasal sinuses are clear. The mastoid aircells are clear. The orbits and soft tissues are unremarkable. Severebilateral TMJ arthropathy. IMPRESSION: 1. No acute intracranial findings. Yoly Wilson DO, MPH IMG CT HEAD/NECK * Ova and parasites, stool (04/10/2024 12:20 PM EST) Parasitic exam FINAL 4 [id number] [facility] MED [facility] PAT+ Comment: (NOTE) SOURCE: STOOL, STLP OVA AND PARASITE, MICROSCOPY, F ?FINAL No parasites seen. Leukocytes present. Cryptosporidium, Cyclospora, and microsporidia are not readily detected by this method. Single negative specimen does not rule out parasitic infection. Stool (Stool) 04/10/2024 12: 20 PM EST 04/10/2024 1:21 PM EST Bre Amin MD MICROBIOLOGY - GENER AL ORDERABLES [facility] LAB MED AND PAT+ [address] [place] [address] * Lactate (04/10/2024 3:29 AM EST) LACTATE 1.19 0.50 - 2.20 mmol/L [facility] Blood 04/10/2024 3:29 AM EST 04/10/2024 3:32 AM EST Bre Amin MD LAB BLOOD ORDERABLES [facility] [address], [place] [id number] * CT ABDOMEN/PELVIS WITH CONTRAST (04/10/2024 2:42 AM EST) Anatomical Region Laterality Modality Abdomen, Pelvis Computed Tomogra phy 04/10/2024 2:51 AM EST Impressions 04/10/2024 3:03 AM EST 1. ??Pancolitis, likely infectious or inflammatory. 2. ??Unchanged indeterminate left upper pole renal lesion. A clinically significant result was initiated on 04/10/2024 3:03 AM, Message ID [id number]. Narrative 04/10/2024 3:[address] ABDOMEN/PELVIS WITH CONTRAST Referring clinician's provided indication for this examination in [facility]: * Abdominal abscess/infection suspected; * Diverticulitis suspected TECHNIQUE: CT of the abdomen and pelvis was performed after administration of intravenous contrast using tailored dose modulation techniques. Images were reconstructed in the axial, coronal, and sagittal planes. COMPARISON: CT ABDOMEN WITH CONTRAST FINDINGS: Lower Chest: Bibasilar subsegmental atelectasis. 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 Liver: No focal lesions. Biliary: Prior cholecystectomy. Unchanged moderate intrahepatic and extrahepatic biliary ductal dilation, likely postsurgical reservoir defect. Spleen: Normal. No splenomegaly. ? Pancreas: No ductal dilatation, peripancreatic fluid, or stranding. Adrenal Glands: No nodules. Kidneys/Ureters: Redemonstrated 1.2 cm indeterminate mixed density left upper polar renal lesion, unchanged since March 2020 2 based on remeasurement. Left interpolar renal cyst. Nonobstructing 7 mm left upper pole renal stone. No hydronephrosis. Bilateral multifocal renal cortical scarring more pronounced on the right. Bowel: Normal appendix. Diffuse wall thickening of the entire colon with mucosal hyperemia, vasa recta engorgement, pericolonic fat stranding, most pronounced along the sigmoid colon. Colonic diverticulosis. No bowel obstruction. Peritoneum/Retroperitoneum: No pneumoperitoneum. Trace pelvic free fluid. Lymph Nodes: No lymphadenopathy. Pelvic Organs/Bladder: No mass. Vessels: No abdominal aortic aneurysm. Bones/Soft Tissues: No destructive osseous lesions. Unchanged chronic L1 burst fracture with severe height loss and T12 moderate compression fracture. Procedure Note Mona Roblero MD - 04/10/2024 CT ABDOMEN/PELVIS WITH CONTRAST Referring clinician's provided indication for this examination in [facility]: *Abdominal abscess/infection suspected; * Diverticulitis suspected TECHNIQUE: CT of the abdomen and pelvis was performed after administrationof intravenous contrast using tailored dose modulation techniques. Imageswere reconstructed in the axial, coronal, and sagittal planes. COMPARISON: CT ABDOMEN WITH CONTRAST FINDINGS: Lower Chest: Bibasilar subsegmental atelectasis. Redemonstrated largeright anterior Morgagni hernia containing peritoneal/mesenteric fat. Liver: No focal lesions. Biliary: Prior cholecystectomy. Unchanged moderate intrahepatic andextrahepatic biliary ductal dilation, likely postsurgical reservoirdefect. Spleen: Normal. No splenomegaly. Pancreas: No ductal dilatation, peripancreatic fluid, or stranding. Adrenal Glands: No nodules. Kidneys/Ureters: Redemonstrated 1.2 cm indeterminate mixed density leftupper polar renal lesion, unchanged since March 2020 2 based onremeasurement. Left interpolar renal cyst. Nonobstructing 7 mm left upperpole renal stone. No hydronephrosis. Bilateral multifocal renal corticalscarring more pronounced on the right. Bowel: Normal appendix. Diffuse wall thickening of the entire colon withmucosal hyperemia, vasa recta engorgement, pericolonic fat stranding, mostpronounced along the sigmoid colon. Colonic diverticulosis. No bowelobstruction. Peritoneum/Retroperitoneum: No pneumoperitoneum. Trace pelvic freefluid. Lymph Nodes: No lymphadenopathy. Pelvic Organs/Bladder: No mass. Vessels: No abdominal aortic aneurysm. Bones/Soft Tissues: No destructive osseous lesions. Unchanged chronic Z0kiirm fracture with severe height loss and T12 moderate compressionfracture. IMPRESSION: 1. Pancolitis, likely infectious or inflammatory. 2. Unchanged indeterminate left upper pole renal lesion. A clinically significant result was initiated on 04/10/2024 3:03 AM,Message ID [id number]. Bre Amin MD IM CT ABD/PELVIS * COVID Pandemic Respiratory Viral Order (PRO) (04/10/2024 12:39 AM EST) Test Ordered COVID, Flu has been ordered [facility] Specimen Source/Descriptio n NASOPHARYNGEAL SWAB [facility] Influenza A PCR Not Detected Not Detected [facility] Influenza B PCR Not Detected Not Detected [facility] SARS-CoV 2 (COVID-19) PCR Not Detected Not Detected [facility] Comment: SARS-CoV-2 not detected Negative results do not preclude SARS-CoV-2 infection and should not be used as the sole basis for patient management decisions. Negative results must be combined with clinical observations, patient history, and epidemiological information. Other (Nasopharyngeal swab) 04/10/2024 12:39 AM EST 04/10/2024 12:42 AM EST Jorge Metcalf MD BODY FLUIDS AND ST OOLS ORDERABLES Performing Organization Address City/State/[facility] Co de Phone Number [address] [address] * CT CHEST (HIGH RESOLUTION) WITHOUT CONTRAST (04/01/2024 5:33 PM EST) Anatomical Region Laterality Modality Chest Computed Tomogra phy 04/06/2024 10:2 6 AM EST Impressions 04/06/2024 10:35 AM EST 1. ??No evidence of interstitial lung disease. 2. ??There is a 3 mm left apical pulmonary nodule. 3. 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 RECOMMENDATION: No routine follow-up required for a low-risk patient. Narrative 04/06/2024 10:[address] CHEST (HIGH RESOLUTION) WITHOUT CONTRAST Referring clinician's provided indication for this examination in Epic: * Dyspnea, chronic, unclear etiology; * Cough, persistent; h/o RA long-standing, on chronic MTX Rheumatoid arthritis. Dyspnea on exertion. Chronic cough. Gastroesophageal reflux disease. TECHNIQUE: Multidetector CT of the chest was performed without intravenous contrast using tailored dose modulation techniques. Thin inspiratory, expiratory and inspiratory prone images were obtained as part of a high-resolution chest CT protocol. COMPARISON: None. FINDINGS: Devices/Tubes/Lines: None. Lungs: The central airways are patent. There is a small amount of dependent atelectasis which improves on prone imaging. Mild lobular air trapping on expiratory images. There is a 3 mm left apical pulmonary nodule, 2:10. Pleura: Normal. No pleural effusion or pneumothorax. 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 No coronary calcification. Lymph Nodes: Normal. No enlarged supraclavicular, axillary, mediastinal, or hilar lymph nodes. Upper Abdomen: Cholecystectomy. Chest Wall: Normal. No chest wall mass. Bones: No suspicious lytic or blastic lesions. Compression of the T12 and L1 vertebral bodies. Slight anterior compression of the T5 and T8 vertebral bodies. Procedure Note Chencho Wood MD - 04/06/2024 CT CHEST (HIGH RESOLUTION) WITHOUT CONTRAST Referring clinician's provided indication for this examination in Epic: *Dyspnea, chronic, unclear etiology; * Cough, persistent; h/o RAlong-standing, on chronic MTX Rheumatoid arthritis. Dyspnea on exertion. Chronic cough. Gastroesophagealreflux disease. TECHNIQUE: Multidetector CT of the chest was performed without intravenouscontrast using tailored dose modulation techniques. Thin inspiratory,expiratory and inspiratory prone images were obtained as [facility] COMPARISON: None. FINDINGS: Devices/Tubes/Lines: None. Lungs: The central airways are patent. There is a small amount ofdependent atelectasis which improves on prone imaging. Mild lobular airtrapping on expiratory images. There is a 3 mm left apical pulmonary nodule, 2:10. Pleura: Normal. No pleural effusion or pneumothorax. Mediastinum: Large right anterior foramen of Morgagni hernia containingmesenteric fat. No coronary calcification. Lymph Nodes: Normal. No enlarged supraclavicular, axillary, mediastinal,or hilar lymph nodes. Upper Abdomen: Cholecystectomy. Chest Wall: Normal. No chest wall mass. Bones: No suspicious lytic or blastic lesions. Compression of the T12 andL1 vertebral bodies. Slight anterior compression of the T5 and [id number] bodies. IMPRESSION: 1. No evidence of interstitial lung disease. 2. There is a 3 mm left apical pulmonary nodule. 3. Large right anterior foramen of Morgagni hernia containing mesentericfat. RECOMMENDATION: No routine follow-up required for a low-risk patient. Jose Thakur MD IMG CT CHEST * XR CHEST PA AND LATERAL 2 VIEWS (03/30/2024 1:09 PM EST) Anatomical Region Laterality Modality Chest Computed Radiogr aphy 03/30/2024 1:34 PM EST Impressions 03/30/2024 1:36 PM EST No acute abnormality. Narrative 03/30/2024 1:36 PM EST XR CHEST PA AND LATERAL 2 VIEWS Referring clinician's provided indication for this examination in [facility]: Dyspnea (Shortness of Breath) COMPARISON: XR RIBS 3 VIEW (BILATERAL) FINDINGS: Devices/Tubes/Lines: None. Lungs: Low lung volumes. Similar elevation of left hemidiaphragm with probable overlying atelectasis. No focal consolidation or pulmonary edema. Pleura: No pleural effusion or pneumothorax. Heart/Mediastinum: Normal heart and mediastinum. Bones/Soft Tissues: Thoracic spine degenerative changes. Similar severe compression deformity of an upper lumbar vertebral body. Procedure Note Reynold Sosa MD, PhD - 03/30/2024 XR CHEST PA AND LATERAL 2 VIEWS Referring clinician's provided indication for this examination in [facility]:Dyspnea (Shortness of Breath) COMPARISON: XR RIBS 3 VIEW (BILATERAL) FINDINGS: Devices/Tubes/Lines: None. Lungs: Low lung volumes. Similar elevation of left hemidiaphragm withprobable overlying atelectasis. No focal consolidation or pulmonaryedema. Pleura: No pleural effusion or pneumothorax. Heart/Mediastinum: Normal heart and mediastinum. Bones/Soft Tissues: Thoracic spine degenerative changes. Similar severecompression deformity of an upper lumbar vertebral body. IMPRESSION: No acute abnormality. Marcustr Valdivia MD, YING IMG XR CHEST * POCT COVID-19 RT-PCR/Influenza A & B/RSV (Cepheid) (03/30/2024 11:04 AM EST) Source Nasal swab SARS-CoV-2 (COVID-19) NEGATIVE-Va lid Control NEGATIVE-Va lid Control Influenza A Negative, Valid Control Negative, Valid Control Influenza B Negative, Valid Control Negative, Valid Control RSV Negative, Valid Control Negative, Valid Control Other 03/30/2024 11:0 4 AM EST Karen Cannon PA-C, MS POINT OF C ARE TEST ORDERABLES * POCT Strep A PCR (Cepheid) (03/30/2024 11:04 AM EST) Strep A Negative, Valid Control Negative, Valid Control Other 03/30/2024 11:0 4 AM EST Karentamara Floresbandar Cannon PA-C, MS POINT OF C ARE TEST ORDERABLES * TSH with reflex (01/02/2024 2:12 PM EDT) Pathologist [facility] TSH 1.46 0.27 - 4.20 uIU/mL [facility] Blood 01/02/2024 2:12 PM EDT 01/02/2024 2:18 PM EDT Keren Poon REGULATORY COMPLIANCE ENGINEER LAB BLOOD OR DERABLES [facility] [address] [place] [address] * (ABNORMAL) Lipid panel (01/02/2024 2:12 PM EDT) HDL 63 mg/dL [facility] Comment: ? Interpretation <40 mg/dL: Low HDL cholesterol (major risk factor for CHD) Greater than or equal to 60 mg/dL: High HDL cholesterol ( negative risk factor for CHD) HDL - cholesterol is affected by a number of factors, e.g. smoking, excerise, hormones, sex and age. CHOLESTEROL 169 0 - 240 mg/dL [facility] TRIGLYCERIDES 102 30 - 160 mg/dL [facility] LDL 86 50 - 129 mg/dL [facility] Comment: LDL levels in terms of risk for coronary heart disease: <100 mg/dL: Optimal 100-129 mg/dL: Near or above optimal 130-159 mg/dL: Borderline high 160-189 mg/dL: High >190 mg/dL: Very High CARDIAC RISK RATIO 2.7(L) 3.3 - 4.4 [facility] Blood 01/02/2024 2:12 PM EDT 01/02/2024 2:18 PM EDT Keren Poon [facility] LAB BLOOD OR DERABLES Performing Organization Address [facility] Co de Phone Number [address] [address] * Hepatitis C antibody, qualitative (01/05/2022 1:56 PM EDT) HCV NON-REACTIV E NON-REACTI VE [facility] Blood 01/05/2022 1:56 PM EDT 01/05/2022 1:58 PM EDT Marleny CONNOLLY LAB BLOOD ORDERA BLES Performing Organization Address [facility] Co de Phone Number [address] [address] * Hepatitis B surface antigen (01/05/2022 1:56 PM EDT) HBV SURFACE ANTIGEN NON-REACTI VE NON-REACTI VE [facility] Blood 01/05/2022 1:56 PM EDT 01/05/2022 1:58 PM EDT Marleny CONNOLLY LAB BLOOD ORDERA BLES Performing Organization Address [facility] Co de Phone Number [address] [address] * BI MAMMOGRAM SCREENING WITH TOMOSYNTHESIS WITH CAD (BILATERAL) (07/27/2021 2:37 PM EDT) Anatomical Region Laterality Modality Breast Left, Breast Right, Breast Bilateral Bila teral Mammography 07/27/2021 2:31 PM EDT Impressions 07/27/2021 2:35 PM EDT BILATERAL BREASTS: Benign, no evidence of malignancy. Normal interval follow-up is recommended in 12 months. Bi-RADS: BI-RADS CATEGORY: ??2 - Benign finding. DENSITY: ??There are scattered fibroglandular densities. RIGHT RECOMMENDATION DUE DATE: 12 Months Recommendation: Right Mammography Screening LEFT RECOMMENDATION DUE DATE: ??12 Months Recommendation: ??Left Mammography Screening Narrative 07/27/2021 2:35 PM EDT STUDY: Bilateral screening mammography with tomosynthesis and CAD TECHNIQUE: Bilateral full-field digital screening mammography is obtained and read in conjunction with computer-aided detection. ??Tomosynthesis as well as 2-D C view imaging were obtained. ?? COMPARISON: Comparison made to multiple prior studies dating back to 10/09/2011. BREAST COMPOSITION: There are scattered areas ??of ??fibroglandular density BILATERAL BREASTS: No new masses, suspicious calcifications or other abnormalities are seen. Benign vascular calcifications are seen. There has been weight loss. Otherwise, no significant interval change. Procedure Note Sharri Richardson MD - 07/27/2021 STUDY: Bilateral screening mammography with tomosynthesis and CAD TECHNIQUE: Bilateral full-field digital screening mammography is obtainedand read in conjunction with computer-aided detection. Tomosynthesis aswell as 2-D C view imaging were obtained. COMPARISON: Comparison made to multiple prior studies dating back to10/09/2011. BREAST COMPOSITION: There are scattered areas of fibroglandulardensity BILATERAL BREASTS: No new masses, suspicious calcifications or otherabnormalities are seen. Benign vascular calcifications are seen. There hasbeen weight loss. Otherwise, no significant interval change. IMPRESSION: BILATERAL BREASTS: Benign, no evidence of malignancy. Normal intervalfollow-up is recommended in 12 months. Bi-RADS: BI-RADS CATEGORY: 2 - Benign finding. DENSITY: There are scattered fibroglandular densities. RIGHT RECOMMENDATION DUE DATE: 12 Months Recommendation: Right Mammography Screening LEFT RECOMMENDATION DUE DATE: 12 Months Recommendation: Left Mammography Screening Ita Pineda REGULATORY COMPLIANCE ENGINEER IMG MG EXAMS * BD DXA AXIAL (SPINE) WITH HIP (04/25/2021 2:45 PM EST) Anatomical Region Laterality Modality Bone Density Bone Density 04/25/2021 2:59 PM EST Impressions 04/25/2021 3:01 PM EST Lumbar spine, bilateral femoral neck and total hip osteopenia. Narrative 04/25/2021 3:01 PM EST COMPARISON: None. BONE DENSITY FINDINGS: ?? History: ??This is a 66-year-old postmenopausal female. Evaluation of the lumbar spine and hips was performed and felt to be technically adequate. L2&L4 vertebral bodies total bone mineral density was calculated at 0.897 gm/cm2 with a T-score of -1.6 falling within the WHO classification of osteopenia. ??Z-score of ??0.3. ??Fracture risk increased. Right femoral neck bone mineral density was calculated at 0.643 gm/cm2 with a T- score of -1.9 falling within the WHO classification of osteopenia. ??Z-score of -0.3. Total Right hip bone mineral density was calculated at 0.700 gm/cm2 with a T- score of ??-2 falling within the WHO classification of osteopenia. ??Z-score of ??-0.7. Left femoral neck bone mineral density was calculated at 0.662 gm/cm2 with a T- score of ??-1.7 falling within the WHO classification of osteopenia. ??Z-score of ??- 0.1. Total Left hip bone mineral density was calculated at 0.676 gm/cm2 with a T- score of ??-2.2 falling within the WHO classification of osteopenia. ??Z-score of ??-0.9. Procedure Note Mode Goldberg MD - 04/25/2021 COMPARISON: None. BONE DENSITY FINDINGS: History: This is a 66-year-old postmenopausal female. Evaluation of the lumbar spine and hips was performed and felt to betechnically adequate. L2&L4 vertebral bodies total bone mineral density was calculated at 0.897gm/cm2 with a T-score of -1.6 falling within the WHO classification ofosteopenia. Z-score of 0.3. Fracture risk increased. Right femoral neck bone mineral density was calculated at 0.643 gm/bd9qmkc a T- score of -1.9 falling within the WHO classification ofosteopenia. Z-score of -0.3. Total Right hip bone mineral density was calculated at 0.700 gm/cm2 with aT- score of -2 falling within the WHO classification of osteopenia.Z-score of -0.7. Left femoral neck bone mineral density was calculated at 0.662 gm/cm2 witha T- score of -1.7 falling within the WHO classification of osteopenia.Z-score of -0.1. Total Left hip bone mineral density was calculated at 0.676 gm/cm2 with aT-score of -2.2 falling within the WHO classification of osteopenia.Z-score of -0.9. IMPRESSION: Lumbar spine, bilateral femoral neck and total hip osteopenia. Mode Ramos MD IMG BD BELTRAN NE DENSITY DEXA from Last 3 Months or Most Recently Relevant to Health Maintenance Tominsky, Opal Personal/Family Self 1955 [address] [facility] [address] [address] Tominsky, Opal Personal/Family Self [address] [address] Tominsky, Opal Personal/Family Self [address] [address] Tominsky, Opal Personal/Family Self [address] [address] Tominsky, Opal Personal/Family Self [address] [address] Tominsky, Opal Personal/Family Self [address] [address] Tominsky, Opal Personal/Family Self [address] [address] Advance Directives Documents on File Type Date Recorded Patient Frame And Scrap Crusher Expl anation MOLST 08/22/2020 4:20 PM Healthcare Proxy 08/19/2020 1:26 PM * DNR/DNI (No CPR/No Intubation) (Latest Code Status on File) Date Activated Date Inactivated Comments 05/08/2024 2:06 AM Question Answer Comments Code Status Confirmed With: Patient * DNR/DNI (No CPR/No Intubation) Date Activated Date Inactivated Comments 04/10/2024 7:35 AM 05/08/2024 2:06 AM Question Answer Comments Code Status Confirmed With: PatientFamily Code Status Communicated To: Inpatient Attending * DNR/DNI (No CPR/No Intubation) Date Activated Date Inactivated Comments 08/19/2020 3:11 AM 04/10/2024 7:35 AM Question Answer Comments Code Status Confirmed With: Family Code Discussion Comments: MOLST completed and at bedside * Full Code (Confirmed) Date Activated Date Inactivated Comments 06/23/2018 6:52 PM 06/28/2018 4:49 PM Question Answer Comments Code Status Confirmed With: Patient * Full Code (Presumed) Date Activated Date Inactivated Comments 06/23/2018 4:07 PM 06/23/2018 6:52 PM Healthcare Agents on File Name Relationship Healthcare Agent Relationship Communication Néstor Juares Spouse .Primary Healt h Care Agent (Proxy form on file) Care Teams Tmd Teacher Assistant Relationship Specialty Start Date End Date Jerseyroldansotero Kerenrex Glaser CNP [address] [place] [address], 2nd [place] [address] PCP - General Family Medicine 01/31/23 Cash Fernandes MD [address] [place] [address] Gastroenterology 08/23/20 Willi Wells MD [address] [place] [address] Rheumatology 02/04/24 Jose Thakur MD [address] [place] [address] Sports Betting Manager Pulmonary Disease 03/17/24 Dana Rucker FNP 15 [facility], [address] [place] [address] Nurse Practitioner Infectious Diseases 05/21/24 Jonathan Alvarez MD [address] [place] [address], [address] [address] Urology 05/14/23 Anival Borja MD [address] [place] [address], [address] [place] [address] [email or web address] Neurologist Neurology 01/04/23 Lyndsay Reynoso FNP [address] [place] [address] [place] [address] [email or web address] Nurse Practitioner Pain Medicine 05/27/22 Gutierrez Pittman MD [address] [place] [phone] President And Cmo Cardiology 05/27/24 Additional Source Comments The information contained in this document represents components of the legal health record. It is not the complete legal health record.[facility]
--- OUTSIDE RECORDS SUMMARY | 2024-06-26 09:27 | XMS_ITS | Encounter Summary ---
Author Organization [facility] Address [phone] Formerly [facility], 1928–[address] [place] [address] Care Team Providers Care Process Designer Name Role Phone JessicaIta oliveira [facility] Primary Care Provider Cash Fernandes MD Unavailable [phone] Seven Menchaca MD Unavailable [phone] Chavo Jack MD Primary Care Provider Keren Poon [facility] Primary Care Provid er Chavo Jack MD Unavailable Willi Wells MD Unavailable Jose Thakur MD Unavailable Dana Rucker SWITCHBOARD OPERATOR SUPERVISOR Unavailable [phone] Jonathan Alvarez MD Unavailable [phone] Anival Borja MD Unavailable Lyndsay Reynoso SWITCHBOARD OPERATOR SUPERVISOR Unavailable Gutierrez Pittman MD Unavailable [phone] Reason for Referral * MRI/CAT Scan - Closed Specialty Diagnoses / Procedures Referred By Cayden montoya Referred To Contact Radiology Diagnoses Epigastric abdominal pain FH: pancreatic cancer Procedures CT Abdomen Only (No Pelvis) Argelia Taylor NP [address] [place] [address] Referral ID Status Reason Start Date Expiration Date Visits Re quested Visits Authorized [id number] Closed 04/09/2022 04/09/2023 1 1 Encounter Details Date Type Department Care Team (Latest Contact Info) Description 04/09/2022 Transcribe Orders Virtual Department [address] [place] [address] Argelia Taylor NP [address] [place] [address] Epigastric abdominal pain (Primary Dx); FH: pancreatic cancer Social History Tobacco Use Types Packs/Day Years [...] Answer Date Recorded Are you interested in help w ith more adult education (for example, completing high school, GED, job training, learning the Khmer language, technical skills, or developing parenting skills)? No 09/26/2020 Food Answer Date Recorded Within the past [...] basis, and looking for work? No 09/26/2020 Sex and Gender Information Value Date Recorded Sex Assigned at Female 08/18/2020 10:48 PM EDT Gender Identity Female 08/18/2020 10:48 PM EDT Sexual Orientation Straight 09/27/2020 4: 02 PM EDT documented as of this encounter Plan of Treatment Upcoming Encounters Date Type Department Care Team (Late st Contact Info) Description 06/06/2024 Procedure Pass [address] [address] 06/26/2024 2:00 PM EST Home Care Visit [facility] [address] [place] [phone] Miya Monte, [facility] [address] [place] [address] [email or web address] 06/30/2024 1:15 PM EST Home Care Visit [facility] [address] [place] [address] Miya Monte, [facility] [address] [place] [address] [email or web address] 07/01/2024 2:30 PM EST Office Visit [facility], Allergy and Critical Care Medicine [address] [place] [address] Jose Thakur MD [address] [place] [address] 07/02/2024 2:15 AM EST [facility] [address] [place] [phone] Miya Monte, TELEVISION NEWSCAST DIRECTOR [address] [place] [address] 07/07/2024 3:00 AM EDT Home Care Visit [facility] [address] [place] [address] Miya Monte, TELEVISION NEWSCAST DIRECTOR [address] [place] [address] 07/09/2024 12:45 AM EDT Home Care Visit [facility] [address] [place] [address] Merly Matos, PT [address] [place] [address] 07/30/2024 3:30 PM EDT Office Visit [address] [place] [address] Keren Poon, WASH CREW PERSON [address] [place] [address] 09/18/2024 2:30 PM EDT Office Visit [facility] Infectious Diseases [address] [place] [address] Dana Rucker, SWITCHBOARD OPERATOR SUPERVISOR [address] [address] 11/26/2024 3:30 PM EDT Office Visit [address] [place] [address] Keren Poon, WASH CREW PERSON [address] [place] [address] 12/11/2024 2:00 PM EDT Appointment [facility] [address] [place] [address] Keren Poon, ORI 170 [facility], 2nd [place] [address] [email or web address] 06/03/2025 2:00 PM EST Office Visit [facility] [address] [place], [place] [address] Keren Poon, ORI 170 [facility], 2nd [place] [address] [email or web address] documented as of this encounter Results * CT ABDOMEN WITH CONTRAST (04/19/2022 2:24 PM EST) Anatomical Region Laterality Modality Abdomen, Abdominal Vasculature C omputed Tomography 04/19/2022 3:31 PM EST Impressions 04/19/2022 5:18 PM EST Increase in biliary ductal dilatation without any obvious filling defect. ??No obvious pancreatic lesion seen. Indeterminate 9 mm isoechoic lesion in the upper pole the left kidney Increased nodularity of bibasilar airspace opacities. RECOMMENDATIONS: 1. MRCP with contrast 2. Chest CT This report has been forwarded to an automated communication system which will electronically notify appropriate providers of potentially important findings. Narrative 04/19/2022 5:[address] ABDOMEN WITH CONTRAST TECHNIQUE: Multidetector-row CT of the abdomen was performed after administration of intravenous contrast using tailored dose modulation techniques. Images were reconstructed in the axial, coronal, and sagittal planes COMPARISON: August 19, 2020 FINDINGS: Lower Chest: Again noted are bilateral patchy airspace opacities in the lower lobes (left greater than right). Some of these have a greater nodular component which suggests further inquiry is indicated. Liver: Status post cholecystectomy. Moderate intrahepatic biliary ductal dilatation likely related to the prior cholecystectomy. Spleen: No splenomegaly or focal lesions. Pancreas: No masses or ductal dilatation. Adrenal Glands: No nodules. Kidneys/Ureters: 4 mm nonobstructing stone in the upper pole of the left kidney. There is a 9 mm indeterminate isodense lesions in the upper pole of the left kidney which is not definitively a cyst and was not present on the prior examination. Bowel: Partially visualized upper abdomen and stomach are unremarkable. Peritoneum/Retroperitoneum: Normal. No masses, pneumoperitoneum, or fluid. Lymph Nodes: Normal. No lymphadenopathy. Vessels: No aneurysm. Aortic vascular calcifications. Bones/Soft Tissues: Unchanged L1 burst fracture Procedure Note Vinay Morrell MD, YING - 04/19/2022 CT ABDOMEN WITH CONTRAST TECHNIQUE: Multidetector-row CT of the abdomen was performed afteradministration of intravenous contrast using tailored dose modulationtechniques. Images were reconstructed in the axial, coronal, and sagittalplanes COMPARISON: August 19, 2020 FINDINGS: Lower Chest: Again noted are bilateral patchy airspace opacities in thelower lobes (left greater than right). Some of these have a greaternodular component which suggests further inquiry is indicated. Liver: Status post cholecystectomy. Moderate intrahepatic biliary ductaldilatation likely related to the prior cholecystectomy. Spleen: No splenomegaly or focal lesions. Pancreas: No masses or ductal dilatation. Adrenal Glands: No nodules. Kidneys/Ureters: 4 mm nonobstructing stone in the upper pole of the leftkidney. There is a 9 mm indeterminate isodense lesions in the upper poleof the left kidney which is not definitively a cyst and was not present onthe prior examination. Bowel: Partially visualized upper abdomen and stomach are unremarkable. Peritoneum/Retroperitoneum: Normal. No masses, pneumoperitoneum, orfluid. Lymph Nodes: Normal. No lymphadenopathy. Vessels: No aneurysm. Aortic vascular calcifications. Bones/Soft Tissues: Unchanged L1 burst fracture IMPRESSION: Increase in biliary ductal dilatation without any obvious filling defect.No obvious pancreatic lesion seen. Indeterminate 9 mm isoechoic lesion in the upper pole the left kidney Increased nodularity of bibasilar airspace opacities. RECOMMENDATIONS: 1. MRCP with contrast 2. Chest CT This report has been forwarded to an automated communication system whichwill electronically notify appropriate providers of potentially importantfindings. Argelia Madina Willemain INSTRUMENT SHOP SUPERVISOR IMG CT XSPECIALTY ORDERABLES documented in this encounter Visit Diagnoses Diagnosis Epigastric abdominal pain- Primary Abdominal pain, epigastric FH: pancreatic cancer Family history of malignant neoplasm of gastrointestinal tract Epigastric abdominal pain Abdominal pain, epigastric FH: pancreatic cancer Family history of malignant neoplasm of gastrointestinal tract documented in this encounter Additional Health Concerns Infection Onset Date Last Indicated Resolved Time CoV-Risk Comment:Per note documentation 03/30/2024 04/10/2024 8:37 AM EST CDiff-Risk 04/10/2024 04/10/2024 04/10/2024 6:05 AM EST C. diff 04/10/2024 05/07/2024 06/06/2024 1:21 AM EST CDiff-Risk 04/10/2024 04/10/2024 04/10/2024 7:25 AM EST Assessment Noted Time PHQ-9 Depression Total Score: 8 10/24/19 22 12:30 PM EDT PHQ-2 Depression Total Score: 2 10/24/19 22 12:30 PM EDT documented as of this encounter Care Teams Process Designer Relationship Specialty Start Date End Date Ita Pineda CNP [address] [place] [address] [email or web address] PCP - General Internal Medicine 08/19/20 09/17/22 Chavo Jack MD [address] [place] [address] [email or web address] PCP - General Internal Medicine 09/18/22 01/30/23 Keren Poon CNP [address] [place] [address], 2[address] [place] [address] [email or web address] PCP - General Family Medicine 01/31/23 Cash Fernandes MD 10 [place] [address] Gastroenterology 08/23/20 Seven Menchaca MD [address] [place] [address] Insurance Assigned Provider 08/04/22 08/03/23 Chavo Jack MD [address] [place] [address] Insurance Assigned Provider 08/03/23 05/04/24 Willi Wells MD [address] [place] [address] 304_[place] [address] Rheumatology 02/04/24 Jose Thkaur MD [address] [place] [address] [email or web address] Drier And Evaporator Operator Pulmonary Disease 03/17/24 Dana Rucker FNP 15 [facility], 2nd [place] [address] [email or web address] Nurse Practitioner Infectious Diseases 05/21/24 Jonathan Alvarez MD [address] [place] [address], [address] [place] [address] [email or web address] Urology 05/14/23 Anival Borja MD [address] [place] [address], [address] [place] [address] Neurologist Neurology 01/04/23 Lyndsay Reynoso FNP [address] [place] [address] [address] [place] [address] [email or web address] Nurse Practitioner Pain Medicine 05/27/22 Gutierrez Pittman MD [address] [place] [phone] Junior Systems Administrator Cardiology 05/27/24 documented as of this encounter Additional Source Comments The information contained in this document represents components of the legal health record. It is not the complete legal health record.[facility]
--- OUTSIDE RECORDS SUMMARY | 2024-06-26 09:27 | XMS_ITS | Encounter Summary ---
Author Organization [facility] Address [phone] [address] [place] [address] Care Team Providers Care Gag Writer Name Role Phone JessicaIta oliveira [facility] Primary Care Provider Cash Fernandes MD Unavailable [phone] Seven Menchaca MD Unavailable [phone] Chavo Jack MD Primary Care Provider [phone] Keren Poon [facility] Primary Care Provid er Chavo Jack MD Unavailable Willi Wells MD Unavailable Jose Thakur MD Unavailable Dana Rucker GLASS DESIGNER Unavailable Jonathan Alvarez MD Unavailable [phone] Anival Borja MD Unavailable Lyndsay Reynoso GLASS DESIGNER Unavailable Gutierrez Pittman MD Unavailable [phone] Encounter Details Date Type Department Care Team (Late st Contact Info) Description 02/21/2022 Procedure Pass [facility] Endoscopy Admitting Dept Virtual Department [address] [place] [address] Social History Tobacco Use Types Packs/Day Years [...] high school, GED, job training, learning the Bengali language, technical skills, or developing parenting skills)? [...] st Contact Info) Description 06/06/2024 Procedure Pass [facility]- [address] [address] 06/26/2024 2:00 PM EST [facility] [address] [place] [phone] Miya Monte, PHOTOGRAPHER AERIAL [address] [place] [address] [email or web address] 06/30/2024 1:15 PM EST [facility] [address] [place] [phone] Miya Monte, PHOTOGRAPHER AERIAL [address] [place] [address] [email or web address] 07/01/2024 2:30 PM EST Office Visit [facility], Allergy [facility] Critical [facility] [address] [place] [address] Jose Thakur MD [address] [place] [address] [email or web address] 07/02/2024 2:15 AM EST Home Care Visit [facility] [place] [facility] [address] [place] [phone] Miya Monte, PHOTOGRAPHER AERIAL [address] [place] [address] [email or web address] 07/07/2024 3:00 AM EDT [facility] [address] [place] [phone] Miya Monte, PHOTOGRAPHER AERIAL [address] [place] [address] [email or web address] 07/09/2024 12:45 AM EDT Home Care Visit [facility] [address] [place] [phone] Merly Matos, PT [address] [place] [address] 07/30/2024 3:30 PM EDT Office Visit [address] [place] [address] Keren Poon, ORI [address] [address] 09/18/2024 2:30 PM EDT Office Visit [facility] Infectious Diseases 22 [place] [address] Dana Rucker, DIVYA [address] [address] 11/26/2024 3:30 PM EDT Office Visit [address] [place] [address] Keren Poon, ORI [address] [address] 12/11/2024 2:00 PM EDT Appointment [address] [address] Keren Poon, ORI [address] [address] 06/03/2025 2:00 PM EST Office Visit [address] [place], [place] [address] Keren Poon, ORI [address] [address] documented as of this encounter Visit Diagnoses Not on filedocumented in this encounter Additional Health Concerns Infection Onset Date Last Indicated Resolved Time CoV-Risk Comment:Per note documentation 03/30/2024 04/10/2024 8:37 AM EST CDiff-Risk 04/10/2024 04/10/2024 04/10/2024 6:05 AM EST C. diff 04/10/2024 05/07/2024 06/06/2024 1:21 AM EST CDiff-Risk 04/10/2024 04/10/2024 04/10/2024 7:25 AM EST Assessment Noted Time PHQ-9 Depression Total Score: 8 10/24/19 12:30 PM EDT PHQ-2 Depression Total Score: 2 10/24/19 12:30 PM EDT documented as of this encounter Care Teams Gag Writer Relationship Specialty Start Date End Date Ita Pnieda CNP [address] [place] [address] PCP - General Internal Medicine 08/19/20 09/17/22 Chavo Jack MD 40 [place] [address] PCP - General Internal Medicine 09/18/22 01/30/23 Keren Poon CNP [address] [place] [address], 2[address] [place] [address] PCP - General Family Medicine 01/31/23 Cash Fernandes MD [address] [place] [address] Gastroenterology 08/23/20 Seven Menchaca MD [address] [place] [address] Insurance Assigned Provider 08/04/22 08/03/23 Chavo Jack MD [address] [place] [address] [email or web address] Insurance Assigned Provider 08/03/23 05/04/24 Willi Wells MD [address] [place] [address] Drive Vinayak 304_[place] [address] Rheumatology 02/04/24 Jose Thakur MD [address] [place] [address] Citizenship Teacher Pulmonary Disease 03/17/24 Dana Rucker FNP [address] [place] [address], 2nd [place] [address] [email or web address] Nurse Practitioner Infectious Diseases 05/21/24 Jonathan Alvarez MD [address] [place] [address], [address] [place] [address] [email or web address] Urology 05/14/23 Anival Borja MD [address] [place] [address], [address] [place] [address] [email or web address] Neurologist Neurology 01/04/23 Lyndsay Reynoso FNP [address] [place] [address] [address] [place] [address] [email or web address] Nurse Practitioner Pain Medicine 05/27/22 Gutierrez Pittman MD [address] [place] [address] Car Attendant Cardiology 05/27/24 documented as of this encounter Additional Source Comments The information contained in this document represents components of the legal health record. It is not the complete legal health record.[facility]
--- OUTSIDE RECORDS SUMMARY | 2024-06-26 09:27 | XMS_ITS | Encounter Summary ---
Author Organization [facility] Address [address] [place] [address] Care Team Providers Care Open Tenter Operator Name Role Phone Charly Saxena Primary Care Provider [phone] Cheryl Calderon MD Primary Care Provider [phone] Encounter Details Date Type Department Care Team (Late st Contact Info) Description 07/29/2014 Orders Only [facility] Rheumatology [address] [place] [address] Abel Fierro MD [address] [place] [address] Social History Tobacco Use Types Packs/Day Years [...] of this encounter Procedures * Due to [place] state law, this organization might not be sharing negative HIV tests. Procedure Name Priority Date/Time Associated Diagnosis Comments C-REACTIVE PROTEIN (CRP) - INFLAMMATION Routine 07/29/2014 11:19 AM EDT Rheumatoid arthritis(714.0) ([facility]) ERYTHROCYTE SEDIMENTATION RATE (ESR) Routine 07/29/2014 11:19 AM EDT Rheumatoid arthritis(714.0) ([facility]) CBC INCLUDES DIFFERENTIAL AND PLATELET COUNT Routine 07/29/2014 11:19 AM EDT Rheumatoid arthritis(714.0) ([facility]) ALANINE AMINOTRANSFERASE (ALT), SERUM Routine 07/29/2014 11:19 AM EDT Rheumatoid arthritis(714.0) ([facility]) ASPARTATE AMINOTRANSFERASE (AST), SERUM Routine 07/29/2014 11:19 AM EDT Rheumatoid arthritis(714.0) ([facility]) CREATININE WITH GLOMERULAR FILTRATION RATE, ESTIMATED (EGFR) Routine 07/29/2014 11:19 AM EDT Rheumatoid arthritis(714.0) ([facility]) documented in this encounter Results * Due to [place] state law, this organization might not be sharing negative HIV tests. * C-REACTIVE PROTEIN (CRP) - INFLAMMATION (07/29/2014 11:19 AM EDT) C reactive protein 0.22 <0.80 mg/dL [facility] Comment: {C-REACTIVE PROTEIN {[id number]) Please be advised that patients taking Carboxypenicillins may exhibit falsely decreased C-Reactive Protein levels due to an analytical interference in this assay. 07/29/2014 11:1 9 AM EDT 07/29/2014 4:29 PM EDT Narrative Resulting Agency Comment [id number] us Abel Fierro MD LABORATORY Final Result [facility] [address] [place] [address] * ERYTHROCYTE SEDIMENTATION RATE (ESR), KUNAL (07/29/2014 11:19 AM EDT) Sedimentation Rate [place]ren (ESR) 14 < OR = 30 mm/h [facility] Comment:{SED RATE BY MODIFIE D SHAJIREN {[id number]) 07/29/2014 11:1 9 AM EDT 07/29/2014 4:29 PM EDT Narrative Resulting Agency Comment [id number] us Abel Fierro MD LAB SAME DAY RESULT Final Resul t Performing Organization Address [facility] Co de Phone Number [facility] [address] [place] [address] * CREATININE WITH GLOMERULAR FILTRATION RATE, ESTIMATED (EGFR) (07/29/2014 11:19 AM EDT) Creatinine 0.93 0.50 - 1.05 mg/dL [facility] Comment: {CREATININE {[id number]) For patients >49 years of age, the reference limit for Creatinine is approximately 13% higher for people identified as -Guinean. GFR 67 > OR = 60 mL/min/1. 73m2 [facility] Comment:{eGFR NON-AFR. AMERI CAN {[id number]) GFR () 78 > OR = 60 mL/min/1. 73m2 [facility] Comment:{eGFR AMERIC AN {[id number]) 07/29/2014 11:1 9 AM EDT 07/29/2014 4:29 PM EDT Narrative [facility] - 07/29/2014 6:45 PM EDT Please note that this estimated [...] needs for GFR calculation. Resulting Agency Comment [id number] us Abel Fierro MD LAB SAME DAY RESULT Final Resul t Performing Organization Address City/[facility]/ZIP Co de Phone Number [facility] [address] [place] [address] * ALANINE AMINOTRANSFERASE (ALT), SERUM (07/29/2014 11:19 AM EDT) ALT (SGPT) 19 6 - 29 U/L [facility] Comment:{ALT {[id number]) 07/29/2014 11:1 9 AM EDT 07/29/2014 4:29 PM EDT Narrative Resulting Agency Comment [id number] us Abel Fierro MD LAB SAME DAY RESULT Final Resul t Performing Organization Address City/[facility] Co de Phone Number [facility] [address] [place] [address] * ASPARTATE AMINOTRANSFERASE (AST), SERUM (07/29/2014 11:19 AM EDT) AST (SGOT) 17 10 - 35 U/L [facility] Comment:{AST {[id number]) 07/29/2014 11:1 9 AM EDT 07/29/2014 4:29 PM EDT Narrative Resulting Agency Comment [id number] us Abel Fierro MD LAB SAME DAY RESULT Final Resul t Performing Organization Address [facility] de Phone Number [facility] [address] [place] [address] * (ABNORMAL) CBC INCLUDES DIFFERENTIAL AND PLATELET COUNT (07/29/2014 11:19 AM EDT) WBC 10.9(H) 3.8 - 10.8 Thousand/ uL [facility] Comment:{WHITE BLOOD CELL CO UNT {[id number]) RBC 5.63(H) 3.80 - 5.10 Million/u L [facility] Comment:{RED BLOOD CELL COUN T {[id number]) Hemoglobin 14.8 11.7 - 15.5 g/dL [facility] Comment:{HEMOGLOBIN {[id number]) Hematocrit 45.7(H) 35.0 - 45.0 % [facility] Comment:{HEMATOCRIT {[id number]) MCV 81.1 80.0 - 100.0 fL [facility] Comment:{MCV {[id number]) MCH 26.2(L) 27.0 - 33.0 pg [facility] Comment:{MCH {[id number]) MCHC 32.3 32.0 - 36.0 g/dL [facility] Comment:{MCHC {[id number]) RDW 15.5(H) 11.0 - 15.0 % [facility] Comment:{RDW {[id number]) PLT 331 140 - 400 Thousand/ uL [facility] Comment:{PLATELET COUNT {[id number]) MPV 7.3(L) 7.5 - 11.5 fL [facility] Comment:{MPV {[id number]) Neutrophils # 5875 1500 - 7800 cells/uL [facility] Comment:{ABSOLUTE NEUTROPHIL S {[id number]) Lymphocytes # 3706 850 - 3900 cells/uL [facility] Comment:{ABSOLUTE LYMPHOCYTE S {[id number]) Monocytes # 981(H) 200 - 950 cells/uL [facility] Comment:{ABSOLUTE MONOCYTES {[id number]) Eosinophils # 294 15 - 500 cells/uL [facility] Comment:{ABSOLUTE EOSINOPHIL S {[id number]) Basophils # 44 0 - 200 cells/uL [facility] Comment:{ABSOLUTE BASOPHILS {[id number]) Neutrophils % 53.9 % [facility] Comment:{NEUTROPHILS {[id number]) Lymphocytes % 34.0 % [facility] Comment:{LYMPHOCYTES {[id number]) Monocytes % 9.0 % [facility] Comment:{MONOCYTES {[id number]) Eosinophils % 2.7 % [facility] Comment:{EOSINOPHILS {[id number]) Basophils % 0.4 % [facility] Comment:{BASOPHILS {[id number]) 07/29/2014 11:1 9 AM EDT 07/29/2014 4:29 PM EDT Narrative Resulting Agency Comment [id number] us Abel Fierro MD LAB SAME DAY RESULT Final Resul t [facility] [address] [place] [address] documented in this encounter Visit Diagnoses Diagnosis Rheumatoid arthritis(714.0) Rheumatoid arthritis documented in this encounter Care Teams Open Tenter Operator Relationship Specialty Start Date End Date Charly Saxena [facility] [place], [place] [id number] PCP - General Internal Medicine 05/25/13 07/16/17 Cheryl Calderon MD [address] [address] PCP - General Internal Medicine 07/17/17 documented as of this encounter
--- OUTSIDE RECORDS SUMMARY | 2024-06-26 09:27 | XMS_ITS | Encounter Summary ---
Author Organization [facility] Address [address] [place] [address] Care Team Providers Care Surgical Nurse Name Role Phone Charly Saxena Primary Care Provider [phone] Cheryl Calderon MD Primary Care Provider [phone] Encounter Details Date Type Department Care Team (Late st Contact Info) Description 02/10/2015 Orders Only [facility] Rheumatology [address] [place] [address] Abel Fierro MD [address] [place] [address] Social History Tobacco Use Types Packs/Day Years [...] on file documented as of this encounter Progress Notes * Luz Velasco - ANA MARIA - 02/11/2015 4:27 PM EDTQuick Note: Labs faxed to Dr. Saxena's office. * Abel Fierro MD - 02/11/2015 12:23 PM EDTQuick Note: Please send labs to Dr. Saxena documented in this encounter Plan of Treatment Not on file documented as of this encounter Procedures * Due to [place] state law, this organization might not be sharing negative HIV tests. Procedure Name Priority Date/Time Associated Diagnosis Comments C-REACTIVE PROTEIN (CRP) - INFLAMMATION Routine 02/10/2015 12:29 PM EDT Rheumatoid arthritis involving both feet, unspecified rheumatoid factor presence (HCC) [M06.071, M06.072] ERYTHROCYTE SEDIMENTATION RATE (ESR) Routine 02/10/2015 12:29 PM EDT Rheumatoid arthritis involving both feet, unspecified rheumatoid factor presence (HCC) [M06.071, M06.072] CBC INCLUDES DIFFERENTIAL AND PLATELET COUNT Routine 02/10/2015 12:29 PM EDT Rheumatoid arthritis involving both feet, unspecified rheumatoid factor presence (HCC) [M06.071, M06.072] ALANINE AMINOTRANSFERASE (ALT), SERUM Routine 02/10/2015 12:29 PM EDT Rheumatoid arthritis involving both feet, unspecified rheumatoid factor presence (HCC) [M06.071, M06.072] ASPARTATE AMINOTRANSFERASE (AST), SERUM Routine 02/10/2015 12:29 PM EDT Rheumatoid arthritis involving both feet, unspecified rheumatoid factor presence (HCC) [M06.071, M06.072] CREATININE WITH GLOMERULAR FILTRATION RATE, ESTIMATED (EGFR) Routine 02/10/2015 12:29 PM EDT Rheumatoid arthritis involving both feet, unspecified rheumatoid factor presence (HCC) [M06.071, M06.072] documented in this encounter Results * Due to [place] state law, this organization might not be sharing negative HIV tests. * C-REACTIVE PROTEIN (CRP) - INFLAMMATION (02/10/2015 12:29 PM EDT) C reactive protein 0.45 <0.80 mg/dL [facility] Comment: {C-REACTIVE PROTEIN {[id number]) Please be advised that patients taking Carboxypenicillins may exhibit falsely decreased C-Reactive Protein levels due to an analytical interference in this assay. 02/10/2015 12:2 9 PM EDT 02/10/2015 9:25 PM EDT Narrative Resulting Agency Comment [id number] us Abel Fierro MD LABORATORY Final Result Performing Organization Address [facility] Co de Phone Number [facility] [address] [place] [address] * ERYTHROCYTE SEDIMENTATION RATE (ESR), WESTERGREN (02/10/2015 12:29 PM EDT) Sedimentation Rate [place]ren (ESR) 6 < OR = 30 mm/h [facility] Comment:{SED RATE BY MODIFIE D WESTERGREN {[id number]) 02/10/2015 12:2 9 PM EDT 02/10/2015 9:25 PM EDT Narrative Resulting Agency Comment [id number] us Abel Fierro MD LAB SAME DAY RESULT Final Resul t Performing Organization Address [facility] de Phone Number [facility] [address] [place] [address] * CREATININE WITH GLOMERULAR FILTRATION RATE, ESTIMATED (EGFR) (02/10/2015 12:29 PM EDT) Creatinine 0.80 0.50 - 0.99 mg/dL [facility] Comment: {CREATININE {[id number]) For patients >49 years of age, the reference limit for Creatinine is approximately 13% higher for people identified as -Hungarian. GFR 80 > OR = 60 mL/min/1. 73m2 [facility] Comment:{eGFR NON-AFR. AMERI CAN {[id number]) GFR () 93 > OR = 60 mL/min/1. 73m2 [facility] Comment:{eGFR AMERIC AN {[id number]) 02/10/2015 12:2 9 PM EDT 02/10/2015 9:25 PM EDT Narrative [facility] - 02/11/2015 3:23 AM EDT Please note that this estimated [...] needs for GFR calculation. Resulting Agency Comment [id number] Abel Fierro MD LAB SAME DAY RESULT Final Resul t Performing Organization Address [facility] de Phone Number [facility] [address] [place] [address] * (ABNORMAL) ALANINE AMINOTRANSFERASE (ALT), SERUM (02/10/2015 12:29 PM EDT) ALT (SGPT) 37(H) 6 - 29 U/L [facility] Comment:{ALT {[id number]) 02/10/2015 12:2 9 PM EDT 02/10/2015 9:25 PM EDT Narrative Resulting Agency Comment [id number] Abel Fierro MD LAB SAME DAY RESULT Final Resul t Performing Organization Address [facility] de Phone Number [facility] [address] [place] [address] * ASPARTATE AMINOTRANSFERASE (AST), SERUM (02/10/2015 12:29 PM EDT) AST (SGOT) 26 10 - 35 U/L [facility] Comment:{AST {[id number]) 02/10/2015 12:2 9 PM EDT 02/10/2015 9:25 PM EDT Narrative Resulting Agency Comment [id number] Abel Feirro MD LAB SAME DAY RESULT Final Resul t Performing Organization Address [facility] de Phone Number [facility] [address] [place] [address] * (ABNORMAL) CBC INCLUDES DIFFERENTIAL AND PLATELET COUNT (02/10/2015 12:29 PM EDT) WBC 10.5 3.8 - 10.8 Thousand/ uL [facility] Comment:{WHITE BLOOD CELL CO UNT {[id number]) RBC 6.07(H) 3.80 - 5.10 Million/u L [facility] Comment:{RED BLOOD CELL COUN T {[id number]) Hemoglobin 15.7(H) 11.7 - 15.5 g/dL [facility] Comment:{HEMOGLOBIN {[id number]) Hematocrit 48.6(H) 35.0 - 45.0 % [facility] Comment:{HEMATOCRIT {[id number]) MCV 80.1 80.0 - 100.0 fL [facility] Comment:{MCV {[id number]) MCH 25.8(L) 27.0 - 33.0 pg [facility] Comment:{MCH {[id number]) MCHC 32.2 32.0 - 36.0 g/dL [facility] Comment:{MCHC {[id number]) RDW 15.6(H) 11.0 - 15.0 % [facility] Comment:{RDW {[id number]) PLT 347 140 - 400 Thousand/ uL [facility] Comment:{PLATELET COUNT {[id number]) MPV 7.6 7.5 - 11.5 fL [facility] Comment:{MPV {[id number]) Neutrophils # 7455 1500 - 7800 cells/uL [facility] Comment:{ABSOLUTE NEUTROPHIL S {[id number]) Lymphocytes # 1932 850 - 3900 cells/uL [facility] Comment:{ABSOLUTE LYMPHOCYTE S {[id number]) Monocytes # 861 200 - 950 cells/uL [facility] Comment:{ABSOLUTE MONOCYTES {[id number]) Eosinophils # 221 15 - 500 cells/uL [facility] Comment:{ABSOLUTE EOSINOPHIL S {[id number]) Basophils # 32 0 - 200 cells/uL [facility] Comment:{ABSOLUTE BASOPHILS {[id number]) Neutrophils % 71.0 % [facility] Comment:{NEUTROPHILS {[id number]) Lymphocytes % 18.4 % [facility] Comment:{LYMPHOCYTES {[id number]) Monocytes % 8.2 % [facility] Comment:{MONOCYTES {[id number]) Eosinophils % 2.1 % [facility] Comment:{EOSINOPHILS {[id number]) Basophils % 0.3 % [facility] Comment:{BASOPHILS {[id number]) 02/10/2015 12:2 9 PM EDT 02/10/2015 9:25 PM EDT Narrative Resulting Agency Comment [id number] us Abel Fierro MD LAB SAME DAY RESULT Final Resul t [facility] [address] [place] [address] documented in this encounter Visit Diagnoses Diagnosis Rheumatoid arthritis involving both feet, unspecified rheumatoid factor presence (HCC) [M06.071, M06.072] documented in this encounter Care Teams Surgical Nurse Relationship Specialty Start Date End Date Charly Saxena [facility] [address] [place] [address] PCP - General Internal Medicine 05/25/13 07/16/17 Cheryl Calderon MD [facility] [address] [place] [address] PCP - General Internal Medicine 07/17/17 documented as of this encounter
--- OUTSIDE RECORDS SUMMARY | 2024-06-26 09:27 | XMS_ITS | Encounter Summary ---
Author Organization [facility] Address [phone] [facility] [place] [address] Care Team Providers Care Hoist Worker Name Role Phone Cash Fernandes MD Unavailable [phone] Keren Poon [facility] Primary Care Provid er Chavo Jack MD Unavailable Willi Wells MD Unavailable Jose Thakur MD Unavailable Dana Rucker OIL DELIVERER Unavailable Jonathan Alvarez MD Unavailable [phone] Anival Borja MD Unavailable Lyndsay Reynoso OIL DELIVERER Unavailable Gutierrez Pittman MD Unavailable [phone] Encounter Details Date Type Department Care Team (Late st Contact Info) Description 04/10/2024 Procedure Pass [facility], Ct Scan - [address] [address] Social History Tobacco Use Types Packs/Day Years [...] st Contact Info) Description 06/06/2024 Procedure Pass [address] [address] 06/26/2024 2:00 PM EST [facility] [address] [place] [address] Miya Monte, [facility] [address] [place] [address] [email or web address] 06/30/2024 1:15 PM EST [facility] [address] [place] [address] Miya Monte, [address] [address] [email or web address] 07/01/2024 2:30 PM EST Office Visit [facility] [address] [place] [address] Jose Thakur MD [address] [place] [address] 07/02/2024 2:15 AM EST [facility] [address] [place] [address] Miya Monte, PURLER [address] [place] [address] 07/07/2024 3:00 AM EDT Home Care Visit [facility] [address] [place] [phone] Miya Monte, PURLER [address] [place] [address] 07/09/2024 12:45 AM EDT Home Care Visit [facility] [address] [place] [phone] Merly Matos, PT [address] [place] [address] 07/30/2024 3:30 PM EDT Office Visit [address] [place] [address] Keren Poon, OVERLOCK COLLAR SETTER [address] [place] [address] 09/18/2024 2:30 PM EDT Office Visit [facility] Infectious Diseases [address] [place] [address] Dana Rucker, OIL DELIVERER [address] [address] 11/26/2024 3:30 PM EDT Office Visit [address] [place] [address] Keren Poon, ORI [address] [place] [address] 12/11/2024 2:00 PM EDT Appointment [facility] [address] [facility] [place] [facility] [place] [address] Cleve Kerenelsie Glaser CNP [address] [facility], [address] [place] [phone] [email or web address] 06/03/2025 2:00 PM EST Office Visit [facility] [address] [place] [address] Dr Hurt [place]AGHAN [address] Keren Poon CNP 170 [facility], [address] [place] [address] documented as of this encounter Visit Diagnoses [...] documented as of this encounter Care Teams Hoist Worker Relationship Specialty Start Date End Date Keren Poon CNP [address] [facility], [address] [place] [address] PCP - General Family Medicine 01/31/23 Cash Fernandes MD [address] [place] [phone] Gastroenterology 08/23/20 Chavo Jack MD [address] [place] [address] [email or web address] Insurance Assigned Provider 08/03/23 05/04/24 Willi Wells MD [address]_[place] [address] Rheumatology 02/04/24 Jose Thakur MD [address] [place] [address] Plant Protection Officer Pulmonary Disease 03/17/24 Dana Rucker FNP 15 [facility], 2nd [place] [address] [email or web address] Nurse Practitioner Infectious Diseases 05/21/24 Jonathan Alvarez MD [address] [place] [address], [address] [place] [address] [email or web address] Urology 05/14/23 Anival Borja MD [address] [place] [address], [address] [place] [address] Neurologist Neurology 01/04/23 Lyndsay Reynoso FNP [address] [place] [address] [email or web address] Nurse Practitioner Pain Medicine 05/27/22 Gutierrez Pittman MD [address] [place] [address] Land Appraiser Cardiology 05/27/24 documented as of this encounter Additional Source Comments The information contained in this document represents components of the legal health record. It is not the complete legal health record.[facility]
--- OUTSIDE RECORDS SUMMARY | 2024-06-26 09:28 | XMS_ITS | Encounter Summary ---
Author Organization [facility] Address [address] [place] [address] Care Team Providers Care Operations Clerk Name Role Phone Cheryl Calderon MD Primary Care Provider [phone] Encounter Details Date Type Department Care Team (Late st Contact Info) Description 01/27/2019 Orders Only [facility] H[facility]ology/Oncology 1 [facility] [address] [place] [phone] Liliana Calderon, JULI [address] [place] [address] Social History Tobacco Use Types Packs/Day Years [...] as of this encounter Progress Notes * Liliana Calderon NP - 01/27/2019 3:23 PM EDT Please see telephone encounter dated 01/28/2019. Thanks documented in this encounter Plan of Treatment Not on file documented as of this encounter Procedures * Due to [place] state law, this organization might not be sharing negative HIV tests. Procedure Name Priority Date/Time Associated Diagnosis Comments MODE SERUM Routine 01/27/2019 3:23 PM EDT Leukopenia, unspecified type Rheumatoid arthritis involving multiple sites with positive rheumatoid factor (HCC) VENIPUNCTURE Routine 01/27/2019 3:23 PM EDT Iron deficiency FERRITIN Routine 01/27/2019 3:23 PM EDT Iron deficiency documented in this encounter Results * Due to [place] state law, this organization might not be sharing negative HIV tests. * POTASSIUM, SERUM (01/27/2019 3:23 PM EDT) Potassium 4.0 3.5 - 5.3 mmol/L [facility] 01/27/2019 3:23 PM EDT 01/28/2019 1:19 AM EDT Narrative Resulting Agency Comment [id number] Liliana Calderon WINDOW TRIMMER APPRENTICE LAB SAME DAY RESULT Final Result Performing Organization Address [facility] Co de Phone Number [facility] [address] [place] [address] * (ABNORMAL) FERRITIN (01/27/2019 3:23 PM EDT) Ferritin 687(H) 16 - 288 ng/mL [facility] 01/27/2019 3:23 PM EDT 01/28/2019 1:19 AM EDT Narrative Resulting Agency Comment [id number] Liliana Calderon WINDOW TRIMMER APPRENTICE LABORATORY Final Result Performing Organization Address City/[facility]/ZIP Co de Phone Number [facility] [address] [place] [address] * (ABNORMAL) IRON PROFILE (IRON/TIBC), SERUM (01/27/2019 3:23 PM EDT) Iron 14(L) 45 - 160 mcg/dL [facility] Iron binding capacity 223(L) 250 - 450 mcg/dL (calc) [facility] Iron saturation 6(L) 16 - 45 % (calc) [facility] 01/27/2019 3:23 PM EDT 01/28/2019 1:19 AM EDT Narrative Resulting Agency Comment [id number] Liliana Calderon WINDOW TRIMMER APPRENTICE LABORATORY Final Result [facility] [address] [place] [address] documented in this encounter Visit Diagnoses Diagnosis Iron deficiency Iron deficiency anemia, unspecified Leukopenia, unspecified type Rheumatoid arthritis involving multiple sites with positive rheumatoid factor (HCC) documented in this encounter Care Teams Operations Clerk Relationship Specialty Start Date End Date Cheryl Calderon MD [facility] Adult Medicine [address] [place] [address] PCP - General Internal Medicine 07/17/17 documented as of this encounter
--- OUTSIDE RECORDS SUMMARY | 2024-06-26 09:28 | XMS_ITS | Encounter Summary ---
Author Organization [facility] Address [phone] [facility] [address] [place] [address] Care Team Providers Care Shoe Parts Caser Name Role Phone JessicaIta oliveira [facility] Primary Care Provider Cash Fernandes MD Unavailable [phone] Seven Menchaca MD Unavailable [phone] Chavo Jack MD Primary Care Provider Keren Poon [facility] Primary Care Provid er Chavo Jack MD Unavailable Willi Wells MD Unavailable Jose Thakur MD Unavailable Dana Rucker TRAINS DISPATCHER SUPERVISOR Unavailable Jonathan Alvarez MD Unavailable [phone] Anival Borja MD Unavailable [phone] Lyndsay Reynoso TRAINS DISPATCHER SUPERVISOR Unavailable [phone] Gutierrez Pittman MD Unavailable [phone] Encounter Details Date Type Department Care Team (Late st Contact Info) Description 02/10/2021 Procedure Pass [facility], Ct Scan - [facility] [address] [place] [address] Social History Tobacco Use Types Packs/Day Years Used Date Smoking Tobacco: Never Smokeless Tobacco: Never Alcohol Use Standard Drinks/Week Comments Not Currently 0 (1 standard drink = 0.6 oz pur e alcohol) 1-2 drinks per month Child or Family Care Answer Date Record ed Do you have problems with on e of the following making it difficult for you to work, study, or receive health care? No 09/26/2020 Education Answer Date Recorded Are you interested in help w ith more adult education (for example, completing high school, GED, job training, learning the Welsh language, technical skills, or developing parenting skills)? [...] st Contact Info) Description 06/06/2024 Procedure Pass [facility], [facility]- [address] [address] 06/26/2024 2:00 PM EST Home Care Visit [facility] [address] [place] [phone] Miya Monte, [address] [address] [email or web address] 06/30/2024 1:15 PM EST Home Care Visit [facility] [address] [place] [phone] Miya Monte, [address] [address] [email or web address] 07/01/2024 2:30 PM EST Office Visit [facility] [address] [place] [address] Jose Thakur MD [address] [place] [address] [email or web address] 07/02/2024 2:15 AM EST Home Care Visit [facility] [address] [place] [address] Miya Monte, [address] [address] [email or web address] 07/07/2024 3:00 AM EDT Home Care Visit [facility] [address] [place] [phone] Miya Monte, [address] [address] [email or web address] 07/09/2024 12:45 AM EDT Home Care Visit [facility] [address] [place] [phone] Merly Matos, PT [address] [place] [address] 07/30/2024 3:30 PM EDT Office Visit [address] [place], [place] [address] Keren Poon, ORI [address] [address] 09/18/2024 2:30 PM EDT Office Visit [facility] Infectious Diseases [address] [place] [address] Dana Rucker, TRAINS DISPATCHER SUPERVISOR [address] [address] 11/26/2024 3:30 PM EDT Office Visit [address] [place]urt, [place] [address] Keren Poon, ORI [address] [address] 12/11/2024 2:00 PM EDT Appointment [facility] [address] [place] [address] Keren Poon, ORI [address] [address] [email or web address] 06/03/2025 2:00 PM EST Office Visit [address] [place], [place] [address] Keren Poon, ORI [address] [address] documented as of this encounter Visit Diagnoses [...] Noted Time PHQ-9 Depression Total Score: 8 09/27/19 1:27 PM EDT PHQ-2 Depression Total Score: 3 09/27/19 1:27 PM EDT documented as of this encounter Care Teams Shoe Parts Caser Relationship Specialty Start Date End Date Ita Pineda CNP [address] [place] [address] [email or web address] PCP - General Internal Medicine 08/19/20 09/17/22 Chavo Jack MD [address] [place] [address] [email or web address] PCP - General Internal Medicine 09/18/22 01/30/23 Keren Poon CNP [address] [place] [address], 2nd [place] [address] [email or web address] PCP - General Family Medicine 01/31/23 Cash Fernandes MD [address] [place] [address] Gastroenterology 08/23/20 Seven Menchaca MD [address] [place] [address] Insurance Assigned Provider 08/04/22 08/03/23 Chavo Jack MD [address] [place] [address] Insurance Assigned Provider 08/03/23 05/04/24 Willi Wells MD [address]_[place] [address] Rheumatology 02/04/24 Jose Thakur MD 30 [place] [address] Executive Office Manager Pulmonary Disease 03/17/24 Dana Rucker FNP 15 [facility], 2nd [place] [address] [email or web address] Nurse Practitioner Infectious Diseases 05/21/24 Jonathan Alvarez MD [address] [place] [address], [address] [place] [address] Urology 05/14/23 Anival Borja MD [address] [place] [address], [address] [place] [address] Neurologist Neurology 01/04/23 Lyndsay Reynoso FNP [address] [place] [address] [email or web address] Nurse Practitioner Pain Medicine 05/27/22 Gutierrez Pittman MD [address] [place] [address] Senior Administrative Support Cardiology 05/27/24 documented as of this encounter Additional Source Comments The information contained in this document represents components of the legal health record. It is not the complete legal health record.[facility]
--- OUTSIDE RECORDS SUMMARY | 2024-06-26 09:28 | XMS_ITS | Encounter Summary ---
Author Organization [facility] Address [address] [place] [address] Care Team Providers Care Feeder Worker Power Unit Operator Name Role Phone Cheryl Calderon MD Primary Care Provider [phone] Reason for Visit * Reason Comments Appointment Encounter Details Date Type Department Care Team ([facility] st Contact Info) Description 01/12/2019 Telephone [facility] Hematology/Oncology 1 [facility] [address] [place] [phone] Ita Anne RN [address] [place] [address] Appointment Social History Tobacco Use Types Packs/Day Years [...] encounter Miscellaneous Notes * Telephone Encounter - Apple Bridges - 01/15/2019 9:58 AM EDT Future Appointments Date Time Provider Department Phone 01/19/19 3:10 PM Lyndsay Lopez MD [facility]. Ophthalmology [phone] 01/26/19 9:30 AM EAP CHEMO TX HEM ONC [facility] Hematology/Oncology [phone] 01/30/19 2:40 PM Liliana Calderon NP [facility] Hematology/Oncology [phone] Patient's is aware of the appointment. * Telephone Encounter - Liliana Calderon NP - 01/14/2019 5:28 PM EDT To schedule a follow-up visit for this patient within the week of Rituxan infusion. Thanks! * Telephone Encounter - Apple Bridges - 01/12/2019 4:44 PM EDT Liliana is not in the office on 01/26/19, she is in [place]. * Telephone Encounter - Ita Anne - 01/12/2019 3:41 PM EDT Patient will be here on 01/26/19 at 9:30am for approximately 3 hours. I don't think Liliana is on on Mondays, unless she is here in the morning that day. * Telephone Encounter - Liliana Calderon NP - 01/12/2019 3:37 PM EDT HO PSS - please schedule follow up visit for this patient if possible on the day she receives her next Rituxan infusion. Thanks! * Telephone Encounter - Ita Anne - 01/12/2019 9:29 AM EDT Liliana, this patient is here today and on Sat01/26/19 for her Rituxan infusions. Please advise when you would like to see her for follow-up and what labs, if any you would like prior. Thank you. documented in this encounter Plan of Treatment Not on file documented as of this encounter Visit Diagnoses Not on filedocumented in this encounter Care Teams Feeder Worker Power Unit Operator Relationship Specialty Start Date End Date Cheryl Calderon MD [facility] [address] [place] [address] PCP - General Internal Medicine 07/17/17 documented as of this encounter
--- OUTSIDE RECORDS SUMMARY | 2024-06-26 09:28 | XMS_ITS | Encounter Summary ---
Author Organization [facility] Address [address] [place] [address] Care Team Providers Care Advance Agent Name Role Phone Cheryl Calderon MD Primary Care Provider [phone] Encounter Details Date Type Department Care Team (Late st Contact Info) Description 11/18/2018 Orders Only [facility] Hematology/Oncology 1 [facility] [address] [place] [phone] Liliana Calderon, JULI [address] [place] [address] Social History Tobacco Use Types Packs/Day Years [...] of this encounter Procedures * Due to [place] state law, this organization might not be sharing negative HIV tests. Procedure Name Priority Date/Time Associated Diagnosis Comments CBC INCLUDES DIFFERENTIAL AND PLATELET COUNT Routine 11/18/2018 3:38 PM EDT Leukopenia, unspecified type LACTATE DEHYDROGENASE (LDH), SERUM Routine 11/18/2018 3:38 PM EDT Leukopenia, unspecified type IRON PROFILE (IRON/TIBC), SERUM Routine 11/18/2018 3:38 PM EDT Iron deficiency FERRITIN Routine 11/18/2018 3:38 PM EDT Iron deficiency documented in this encounter Results * Due to [place] state law, this organization might not be sharing negative HIV tests. * (ABNORMAL) IRON PROFILE (IRON/TIBC), SERUM (11/18/2018 3:38 PM EDT) Iron 38(L) 45 - 160 mcg/dL [facility] Iron binding capacity 239(L) 250 - 450 mcg/dL (calc) [facility] Iron saturation 16 16 - 45 % (calc) [facility] 11/18/2018 3:38 PM EDT 11/19/2018 12:14 AM EDT Narrative Resulting Agency Comment [id number] Liliana Calderon NP LABORATORY Final Result Performing Organization Address [facility] Co de Phone Number [facility] [address] [place] [address] * (ABNORMAL) FERRITIN (11/18/2018 3:38 PM EDT) Ferritin 634(H) 16 - 288 ng/mL [facility] 11/18/2018 3:38 PM EDT 11/19/2018 12:14 AM EDT Narrative Resulting Agency Comment [id number] Liliana Calderon NP LABORATORY Final Result Performing Organization Address [facility] Co de Phone Number [facility] [address] [place] [address] * LACTATE DEHYDROGENASE (LDH), SERUM (11/18/2018 3:38 PM EDT) Lactate dehydrogenase 156 120 - 250 U/L [facility] 11/18/2018 3:38 PM EDT 11/19/2018 12:14 AM EDT Narrative Resulting Agency Comment [id number] Liliana Calderon NP LABORATORY Final Result Performing Organization Address [facility]/ZIP Co de Phone Number [facility] [address] [place] [address] * (ABNORMAL) CBC INCLUDES DIFFERENTIAL AND PLATELET COUNT (11/18/2018 3:38 PM EDT) WBC 8.0 3.8 - 10.8 Thousand/u L [facility] RBC 4.93 3.80 - 5.10 Million/uL [facility] Hemoglobin 13.1 11.7 - 15.5 g/dL [facility] Hematocrit 40.6 35.0 - 45.0 % [facility] MCV 82.4 80.0 - 100.0 fL [facility] MCH 26.6(L) 27.0 - 33.0 pg [facility] MCHC 32.3 32.0 - 36.0 g/dL [facility] RDW 14.8 11.0 - 15.0 % [facility] PLT 281 140 - 400 Thousand/u L [facility] MPV 10.4 7.5 - 12.5 fL [facility] Neutrophils # 6840 1500 - 7800 cells/uL [facility] Lymphocytes # 664(L) 850 - 3900 cells/uL [facility] Monocytes # 480 200 - 950 cells/uL [facility] Eosinophils # 8(L) 15 - 500 cells/uL [facility] Basophils # 8 0 - 200 cells/uL [facility] Neutrophils % 85.5 % [facility] Lymphocytes % 8.3 % [facility] Monocytes % 6.0 % [facility] Eosinophils % 0.1 % [facility] Basophils % 0.1 % [facility] 11/18/2018 3:38 PM EDT 11/19/2018 12:14 AM EDT Narrative Resulting Agency Comment [id number] Liliana Calderon BROILER SUPERVISOR LAB SAME DAY RESULT Final Result [facility] [address] [place] [address] documented in this encounter Visit Diagnoses Diagnosis Leukopenia, unspecified type Iron deficiency Iron deficiency anemia, unspecified documented in this encounter Care Teams Advance Agent Relationship Specialty Start Date End Date Cheryl Calderon MD [facility] Adult Medicine [address] [place] [address] PCP - General Internal Medicine 07/17/17 documented as of this encounter
--- OUTSIDE RECORDS SUMMARY | 2024-06-26 09:28 | XMS_ITS | Encounter Summary ---
Author Organization [facility] Address [phone] [facility] [place] [address] Care Team Providers Care Sheep Clipper Name Role Phone Patrick Sanchez MD Unavailable [phone] Keren Mabry MD Unavailable Louisa Hogan MD Unavailable Charly Saxena DO Unavailable [phone] Abhinav Muhammad MD Unavailable [phone] Cheryl Giraldo NP Unavailable Wilfrido Steel MD Unavailable [phone] Sharon Martin-C Unavailable Ita Pineda DONATIONS ATTENDANT Primary Care Provider Cash Fernandes MD Unavailable [phone] Seven Menchaca MD Unavailable Chavo Jack MD Primary Care Provider [phone] Keren Poon [facility] Primary Care Provid er Chavo Jack MD Unavailable Willi Wells MD Unavailable Jose Thakur MD Unavailable Dana Rucker MANAGER WEALTH MANAGEMENT Unavailable Jonathan Alvarez MD Unavailable [phone] Anival Borja MD Unavailable Lyndsay Reynoso MANAGER WEALTH MANAGEMENT Unavailable Gutierrez Pittman MD Unavailable [phone] Encounter Details Date Type Department Care Team (Late st Contact Info) Description 08/19/2020 Procedure Pass [facility] Endoscopy Admitting Dept Virtual Department [address] [place] [address] Social History Tobacco Use Types Packs/Day Years [...] st Contact Info) Description 06/06/2024 Procedure Pass [facility] [address] [place] [address] 06/26/2024 2:00 PM EST [facility] [address] [place] [address] Miya Monte, ALLERGY PHYSICIAN [address] [place] [address] 06/30/2024 1:15 PM EST Home Care Visit [facility] [address] [place] [phone] Miya Monte, ALLERGY PHYSICIAN [address] [place] [address] 07/01/2024 2:30 PM EST Office Visit [facility] [address] [place] [address] Jose Thakur MD [address] [place] [address] 07/02/2024 2:15 AM EST Home [facility] Visit [facility] [address] [place] [phone] Miya Monte, ALLERGY PHYSICIAN [address] [place] [address] 07/07/2024 3:00 AM EDT Home Care Visit [facility] [address] [place] [phone] Miya Monte, ALLERGY PHYSICIAN [address] [place] [address] 07/09/2024 12:45 AM EDT Home Care Visit [facility] [address] [place] [phone] Merly Matos, PT [address] [place] [address] 07/30/2024 3:30 PM EDT Office Visit [facility] [address] [place] [address] [place] [address] Keren Poon, DONATIONS ATTENDANT 170 [facility], [address] [place] [address] 09/18/2024 2:30 PM EDT Office Visit [facility] Infectious Diseases 22 [place] [address] Dana Rucker FNP 15 [facility], 2nd [place] [address] 11/26/2024 3:30 PM EDT Office Visit [address] [place], [place] [address] Keren Poon, ORI 170 [facility], 2nd [place] [address] 12/11/2024 2:00 PM EDT Appointment [facility] 30 [place] [address] Keren Poon CNP 170 [facility], 2nd [place] [address] 06/03/2025 2:00 PM EST Office Visit [address] [place], [place] [address] Keren Poon, ORI 170 [facility], 2nd [place] [address] documented as of this encounter Visit Diagnoses [...] documented as of this encounter Care Teams Sheep Clipper Relationship Specialty Start Date End Date Ita Pineda CNP [address] [place] [address] [email or web address] PCP - General Internal Medicine 08/19/20 09/17/22 Chavo Jack MD [address] [place] [address] PCP - General Internal Medicine 09/18/22 01/30/23 Keren Poon CNP [address] [place] [address], 2nd [place] [address] [email or web address] PCP - General Family Medicine 01/31/23 Patrick Sanchez MD [address] [place] [address] Department [place] [address] [email or web address] Historical LMR Provider 09/10/14 Keren Mabry MD [address] [place] [address] Historical LMR Provider 07/10/18 Louisa Hogan MD [address] [place] [address] [email or web address] Historical LMR Provider 07/10/1807/29 Charly Saxena DO [address] [place] [address] Historical LMR Provider 07/10/18 Abhinav Muhammad MD [address] [place] [address] [address] [place] [address] [email or web address] Historical LMR Provider 07/10/18 08/22/20 Cheryl Giraldo NP [address] [place] [address] Historical LMR Provider 07/10/18 Wilfrido Steel MD [address] [place] [address] Historical LMR Provider 07/10/18 Sharon Martin PA-C 115 [facility]. [address] [place] [address] [email or web address] Historical LMR Provider 07/10/18 08/22/20 Cash Fernandes MD [address] [place] [address] Gastroenterology 08/23/20 Seven Menchaca MD [address] [place] [address] Insurance Assigned Provider 08/04/22 08/03/23 Chavo Jack MD [address] [place] [address] Insurance Assigned Provider 08/03/23 05/04/24 Willi Wells MD [address] [place] [address] [address] Rheumatology 02/04/24 Jose Thakur MD 30 [place] [address] Seating Upholsterer Pulmonary Disease 03/17/24 Dana Rucker FNP 15 [facility], 2nd [place] [address] Nurse Practitioner Infectious Diseases 05/21/24 Jonathan Alvarez MD [address] [place] [address], [address] [place] [address] [email or web address] Urology 05/14/23 Anival Borja MD [address] [place] [address], [address] [place] [address] Neurologist Neurology 01/04/23 Lyndsay Reynoso FNP 10 [facility] [address] [place] [address] [email or web address] Nurse Practitioner Pain Medicine 05/27/22 Gutierrez Pittman MD [address] [place] [address] Grounds/Maintenance Specialist Cardiology 05/27/24 documented as of this encounter Additional Source Comments The information contained in this document represents components of the legal health record. It is not the complete legal health record.[facility]
--- OUTSIDE RECORDS SUMMARY | 2024-06-26 09:28 | XMS_ITS | Encounter Summary ---
Author Organization [facility] Address [address] [place] [address] Care Team Providers Care Professional Development Manager Name Role Phone Cheryl Calderon MD Primary Care Provider [phone] Encounter Details Date Type Department Care Team (Late st Contact Info) Description 12/23/2018 Orders Only [facility] Hematology/Oncology 1 [facility] [address] [place] [phone] Liliana Calderon, JULI [address] [place] [address] Social History Tobacco Use Types Packs/Day Years [...] Procedure Name Priority Date/Time Associated Diagnosis Comments HEPATITIS B SURFACE ANTIGEN Routine 12/23/2018 11:32 AM EDT Rheumatoid arthritis involving multiple sites with positive rheumatoid factor (HCC) HEPATITIS C AB WITH REFLEX TO RNA PCR, SERUM Routine 12/23/2018 11:32 AM EDT Rheumatoid arthritis involving multiple sites with positive rheumatoid factor (HCC) HEPATITIS B CORE ANTIBODY, TOTAL, SERUM Routine 12/23/2018 11:32 AM EDT Rheumatoid arthritis involving multiple sites with positive rheumatoid factor (HCC) CBC INCLUDES DIFFERENTIAL AND PLATELET COUNT Routine 12/23/2018 11:32 AM EDT Rheumatoid arthritis involving multiple sites with positive rheumatoid factor (HCC) HEPATIC FUNCTION PANEL (ALT,AST,ALK PH,BILI'S,TP,ALB) Routine 12/23/2018 11:32 AM EDT Rheumatoid arthritis involving multiple sites with positive rheumatoid factor (HCC) documented in this encounter Results * Due to [place] state law, this organization might not be sharing negative HIV tests. * HEPATITIS C AB WITH REFLEX TO RNA PCR, SERUM (12/23/2018 11:32 AM EDT) Hepatitis C virus Ab NON-REACT MANOLO NON-REACT MANOLO [facility] Hepatitis C virus Ab Signal/Cutoff 0.01 <1.00 [facility] Comment: HCV antibody was non-reactive. There is no laboratory evidence of HCV infection. In most cases, no further action is required. However, if recent HCV exposure is suspected, a test for HCV RNA (test code 06225) is suggested. For additional information please refer to http://education.Hitwise/faq/NMH04m6 (This link is being provided for informational/ educational purposes only.) 12/23/2018 11:3 2 AM EDT 12/23/2018 11:23 PM EDT Narrative Resulting Agency Comment [id number] Liliana Calderon NP LABORATORY Final Result [facility] [address] [place] [address] * HEPATITIS B CORE ANTIBODY, TOTAL, SERUM (12/23/2018 11:32 AM EDT) Hepatitis B virus core Ab NON-REACTI VE NON-REACT MANOLO [facility] 12/23/2018 11:3 2 AM EDT 12/23/2018 11:23 PM EDT Narrative Resulting Agency Comment [id number] Liliana Calderon NP LABORATORY Final Result Performing Organization Address [facility] de Phone Number [facility] [address] [place] [address] * HEPATITIS B SURFACE ANTIGEN (12/23/2018 11:32 AM EDT) Pathologist [facility] Hepatitis B virus surface Ag NON-REACTI VE NON-REACT MANOLO [facility] 12/23/2018 11:3 2 AM EDT 12/23/2018 11:23 PM EDT Narrative Resulting Agency Comment [id number] Liliana Calderon [facility] Final Result Performing Organization Address [facility] de Phone Number [facility] [address] [place] [address] * (ABNORMAL) HEPATIC FUNCTION PANEL (ALT,AST,ALK PH,BILI'S,TP,ALB) (12/23/2018 11:32 AM EDT) Pathologist [facility] Protein Total (Serum) 5.8(L) 6.1 - 8.1 g/dL [facility] Albumin 3.4(L) 3.6 - 5.1 g/dL [facility] Globulin 2.4 1.9 - 3.7 g/dL (calc) [facility] Albumin/Globulin 1.4 1.0 - 2.5 (calc) [facility] Bilirubin Total 0.4 0.2 - 1.2 mg/dL [facility] Bilirubin Direct 0.1 < OR = 0.2 mg/dL [facility] Bilirubin Indirect 0.3 0.2 - 1.2 mg/dL (calc) [facility] Alkaline phosphatase 56 33 - 130 U/L [facility] AST (SGOT) 13 10 - 35 U/L [facility] ALT (SGPT) 12 6 - 29 U/L [facility] 12/23/2018 11:3 2 AM EDT 12/23/2018 11:23 PM EDT Narrative Resulting Agency Comment [id number] Liliana Calderon NP LABORATORY Final Result Performing Organization Address [facility] de Phone Number [facility] [address] [place] [address] * CBC INCLUDES DIFFERENTIAL AND PLATELET COUNT (12/23/2018 11:32 AM EDT) WBC 7.5 3.8 - 10.8 Thousand/u L [facility] RBC 4.67 3.80 - 5.10 Million/uL [facility] Hemoglobin 12.8 11.7 - 15.5 g/dL [facility] Hematocrit 39.5 35.0 - 45.0 % [facility] MCV 84.6 80.0 - 100.0 fL [facility] MCH 27.4 27.0 - 33.0 pg [facility] MCHC 32.4 32.0 - 36.0 g/dL [facility] RDW 13.7 11.0 - 15.0 % [facility] PLT 259 140 - 400 Thousand/u L [facility] MPV 10.5 7.5 - 12.5 fL [facility] Neutrophils # 5093 1500 - 7800 cells/uL [facility] Lymphocytes # 1538 850 - 3900 cells/uL [facility] Monocytes # 803 200 - 950 cells/uL [facility] Eosinophils # 60 15 - 500 cells/uL [facility] Basophils # 8 0 - 200 cells/uL [facility] Neutrophils % 67.9 % [facility] Lymphocytes % 20.5 % [facility] Monocytes % 10.7 % [facility] Eosinophils % 0.8 % [facility] Basophils % 0.1 % [facility] 12/23/2018 11:3 2 AM EDT 12/23/2018 11:23 PM EDT Narrative Resulting Agency Comment [id number] Liliana Calderon [facility] SAME DAY RESULT Final Result Performing Organization Address City/State/[facility] Co de Phone Number [facility] [address] [place] [address] documented in this encounter Visit Diagnoses Diagnosis Rheumatoid arthritis involving multiple sites with positive rheumatoid factor (HCC) documented in this encounter Care Teams Professional Development Manager Relationship Specialty Start Date End Date Cheryl Calderon MD [facility] Adult Medicine [address] [place] [id number] PCP - General Internal Medicine 07/17/17 documented as of this encounter
--- OUTSIDE RECORDS SUMMARY | 2024-06-26 09:29 | XMS_ITS | Encounter Summary ---
Author Organization [facility] Address [phone] [facility] [place] [address] Care Team Providers Care Abstract Writer Name Role Phone Cash Fernandes MD Unavailable [phone] Seven Menchaca MD Unavailable Chavo Jack MD Primary Care Provider Keren Poon [facility] Primary Care Provid er Chavo Jack MD Unavailable Willi Wells MD Unavailable Jose Thakur MD Unavailable Dana Rucker ASSEMBLER BONDING Unavailable [phone] Jonathan Alvarez MD Unavailable [phone] Anival Borja MD Unavailable Lyndsay Reynoso ASSEMBLER BONDING Unavailable [phone] Gutierrez Pittman MD Unavailable [phone] Encounter Details Date Type Department Care Team (Late st Contact Info) Description 10/11/[address] [facility] Laboratory [address] [place] [address] Anival Borja MD [address] [place] [address], [address] [place], [place] [id number] Social History Tobacco Use Types Packs/Day Years [...] is your housing situation today? I have jobrionna salas 09/26/2020 How many times have you [...] st Contact Info) Description 06/06/2024 Procedure Pass [facility], [facility]- [address] [address] 06/26/2024 2:00 PM EST [facility] [address] [place] [phone] Miya Monte, [address] [address] [email or web address] 06/30/2024 1:15 PM EST [facility] [address] [place] [phone] Miya Monte, [address] [address] [email or web address] 07/01/2024 2:30 PM EST Office Visit [facility], Allergy and Critical Care Medicine [address] [place] [address] Jose Thakur MD [address] [place] [address] [email or web address] 07/02/2024 2:15 AM EST [facility] [address] [place] [phone] Miya Monte, [address] [address] [email or web address] 07/07/2024 3:00 AM EDT [facility] [address] [place] [phone] Miya Monte, CORPORATE STAFF ACCOUNTANT [address] [place] [address] 07/09/2024 12:45 AM EDT Home Care Visit [facility] [address] [place] [address] CarloMerly mason, PT [address] [place] [address] 07/30/2024 3:30 PM EDT Office Visit [address] [place] [address] Keren Poon, ORI [address] [address] 09/18/2024 2:30 PM EDT Office Visit [facility] Infectious Diseases [address] [place] [address] Dana Rucker, ASSEMBLER BONDING [address] [address] 11/26/2024 3:30 PM EDT Office Visit [address] [place], [place] [address] Keren Poon, ORI [address] [address] 12/11/2024 2:00 PM EDT Appointment [facility] [address] [place] [address] Keren Poon, ORI [address] [address] 06/03/2025 2:00 PM EST Office Visit [address] [place] [address] Keren Poon CNP 170 [facility], 2nd [place] [address] documented as of this encounter Visit Diagnoses [...] documented as of this encounter Care Teams Abstract Writer Relationship Specialty Start Date End Date Chavo Jack MD [address] [place] [address] PCP - General Internal Medicine 09/18/22 01/30/23 Keren Poon CNP [address] [place] [address], [address] [place] [address] [place] [address] PCP - General Family Medicine 01/31/23 Cash Fernandes MD [address] [place] [address] Gastroenterology 08/23/20 Seven Menchaca MD [address] [place] [address] Insurance Assigned Provider 08/04/22 08/03/23 Chavo Jack MD [address] [place] [address] Insurance Assigned Provider 08/03/23 05/04/24 Willi Wells MD [address] [facility] [address] Vinayak [address]_[place] [address] Rheumatology 02/04/24 Jose Thakur MD [address] [place] [address] Fuel Injection Servicer Pulmonary Disease 03/17/24 Dana Rucker FNP [address] [place] [address], 2nd [place] [address] Nurse Practitioner Infectious Diseases 05/21/24 Jonathan Alvarez MD [address] [place] [address], [address] [place] [address] Urology 05/14/23 Anival Borja MD [address] [place] [address], [address] [place] [address] Neurologist Neurology 01/04/23 Lyndsay Reynoso FNP [address] [place] [address] [place] [address] [email or web address] Nurse Practitioner Pain Medicine 05/27/22 Gutierrez Pittman MD [address] [place] [address] [facility] Cardiology 05/27/24 documented as of this encounter Additional Source Comments The information contained in this document represents components of the legal health record. It is not the complete legal health record.[facility]
--- OUTSIDE RECORDS SUMMARY | 2024-06-26 09:29 | XMS_ITS | Encounter Summary ---
Author Organization [facility] Address [phone] [facility] [place] [address] Care Team Providers Care Food Preparation Worker Name Role Phone JessicaIta oliveira [facility] Primary Care Provider Cash Fernandes MD Unavailable [phone] Seven Menchaca MD Unavailable [phone] Chavo Jack MD Primary Care Provider [phone] Keren Poon [facility] Primary Care Provid er Chavo Jack MD Unavailable Willi Wells MD Unavailable Jose Thakur MD Unavailable Dana Rucker METAL ENGRAVER Unavailable Jonathan Alvarez MD Unavailable [phone] Anival Borja MD Unavailable [phone] Lyndsay Reynoso METAL ENGRAVER Unavailable Gutierrez Pittman MD Unavailable [phone] Encounter Details Date Type Department Care Team (Late st Contact Info) Description 02/10/2021 Procedure Pass [facility], [facility] [address] [place] [address] Social History Tobacco Use Types Packs/Day Years [...] high school, GED, job training, learning the Maltese language, technical skills, or developing parenting skills)? [...] Contact Info) Description 06/06/2024 Procedure Pass [facility], [facility]- [address] [address] 06/26/2024 2:00 PM EST Home Care Visit [facility] [address] [place] [phone] Miya Monte, [address] [address] [email or web address] 06/30/2024 1:15 PM EST Home Care Visit [facility] [address] [place] [phone] Miya Monte, [address] [address] [email or web address] 07/01/2024 2:30 PM EST Office Visit [facility], Allergy [facility] Critical [facility] Medicine [address] [place] [address] Jose Thakur MD [address] [place] [address] [email or web address] 07/02/2024 2:15 AM EST Home Care Visit [facility] [address] [place] [address] Miya Monte, [address] [address] [email or web address] 07/07/2024 3:00 AM EDT Home Care Visit [facility] [address] [place] [phone] Miya Monte, [address] [address] [email or web address] 07/09/2024 12:45 AM EDT Home Care Visit [facility] [address] [place] [phone] Merly Matos, PT [address] [place] [address] 07/30/2024 3:30 PM EDT Office Visit [address] [place], [place] [address] Keren Poon, ORI [address] [address] 09/18/2024 2:30 PM EDT Office Visit [facility] Infectious Diseases [address] [place] [address] Dana Rucker, METAL ENGRAVER [address] [address] 11/26/2024 3:30 PM EDT Office Visit [address] [place], [place] [address] Keren Poon, ORI [address] [address] 12/11/2024 2:00 PM EDT Appointment [facility] [address] [place] [address] Keren Poon, ORI [address] [address] [email or web address] 06/03/2025 2:00 PM EST Office Visit [address] [place], [place] [address] Keren Poon, ORI [address] [address] documented as of this encounter Visit Diagnoses [...] documented as of this encounter Care Teams Food Preparation Worker Relationship Specialty Start Date End Date Ita Pineda CNP [address] [place] [address] [email or web address] PCP - General Internal Medicine 08/19/20 09/17/22 Chavo Jack MD [address] [place] [address] [email or web address] PCP - General Internal Medicine 09/18/22 01/30/23 Keren Poon CNP [address] [place] [address], 2nd [place] [address] [email or web address] PCP - General Family Medicine 01/31/23 Cash Fernandes MD [address] [place] [address] Gastroenterology 08/23/20 Seven Menchaca MD [address] [place] [address] Insurance Assigned Provider 08/04/22 08/03/23 Chavo Jack MD [address] [place] [address] Insurance Assigned Provider 08/03/23 05/04/24 Willi Wells MD [address] Vinayak 304_[place] [address] Rheumatology 02/04/24 Jose Thakur MD 30 [place] [address] Police Liaison Officer Pulmonary Disease 03/17/24 Dana Rucker FNP 15 [facility], 2nd [place] [address] [email or web address] Nurse Practitioner Infectious Diseases 05/21/24 Jonathan Alvarez MD [address] [place] [address], [address] [place] [address] Urology 05/14/23 Anival Borja MD [address] [place] [address], [address] [place] [address] Neurologist Neurology 01/04/23 Lyndsay Reynoso FNP [address] [place] [address] [email or web address] Nurse Practitioner Pain Medicine 05/27/22 Gutierrez Pittman MD [address] [place] [address] Automotive Product Specialist Cardiology 05/27/24 documented as of this encounter Additional Source Comments The information contained in this document represents components of the legal health record. It is not the complete legal health record.[facility]
--- OUTSIDE RECORDS SUMMARY | 2024-06-26 09:29 | XMS_ITS | Encounter Summary ---
Author Organization [facility] Address [phone] Critical access [place] [address] Care Team Providers Care Marine Water Tender Name Role Phone JessicaIta oliveira [facility] Primary Care Provider Cash Fernandes MD Unavailable [phone] Sveen Menchaca MD Unavailable Chavo Jack MD Primary Care Provider [phone] Keren Poon [facility] Primary Care Provid er Chavo Jack MD Unavailable Willi Wells MD Unavailable Jose Thakur MD Unavailable Dana Rucker INSULATION WORKER FURNACE INSTALLER Unavailable Jonathan Alvarez MD Unavailable [phone] Anival Borja MD Unavailable [phone] Lyndsay Reynoso INSULATION WORKER FURNACE INSTALLER Unavailable Gutierrez Pittman MD Unavailable [phone] Encounter Details Date Type Department Care Team (Late st Contact Info) Description 02/10/2021 Procedure Pass [facility], [facility] - [facility] [address] [place] [address] Social History Tobacco Use Types Packs/Day Years [...] st Contact Info) Description 06/06/2024 Procedure Pass [facility], [facility]- [address] [address] 06/26/2024 2:00 PM EST Home Care Visit [facility] [address] [place] [phone] Miya Monte, [address] [address] 06/30/2024 1:15 PM EST Home Care Visit [facility] [address] [place] [phone] Miya Monte, [address] [address] 07/01/2024 2:30 PM EST Office Visit [facility], All[facility] Critical [facility] [address] [place] [address] Jose Thakur MD [address] [place] [address] 07/02/2024 2:15 AM EST Home Care Visit [facility] [address] [place] [address] Miya Monte, [address] [address] 07/07/2024 3:00 AM EDT Home Care Visit [facility] [address] [place] [phone] Miya Monte, [address] [address] 07/09/2024 12:45 AM EDT Home Care Visit [facility] [address] [place] [phone] Merly Matos, PT [address] [place] [address] 07/30/2024 3:30 PM EDT Office Visit [address] [place], [place] [address] Keren Poon, ORI [address] [address] 09/18/2024 2:30 PM EDT Office Visit [facility] Infectious Diseases 22 [place] [address] Dana Rucker, INSULATION WORKER FURNACE INSTALLER [address] [address] 11/26/2024 3:30 PM EDT Office Visit [address] [place], [place] [address] Keren Poon, ORI [address] [address] 12/11/2024 2:00 PM EDT Appointment [facility] [address] [place] [address] Keren Poon, ORI [address] [address] 06/03/2025 2:00 PM EST Office Visit [address] [place], [place] [address] Keren Poon, ORI [address] [address] documented as of this encounter Visit Diagnoses [...] documented as of this encounter Care Teams Marine Water Tender Relationship Specialty Start Date End Date Ita Pineda CNP [address] [place] [address] [email or web address] PCP - General Internal Medicine 08/19/20 09/17/22 Chavo Jack MD [address] [place] [address] [email or web address] PCP - General Internal Medicine 09/18/22 01/30/23 Keren Poon CNP [address] [place] [address], 2nd [place] [address] [email or web address] PCP - General Family Medicine 01/31/23 Cash Fernandes MD [address] [place] [address] Gastroenterology 08/23/20 Seven Menchaca MD [address] [place] [address] Insurance Assigned Provider 08/04/22 08/03/23 Chavo Jack MD [address] [place] [address] Insurance Assigned Provider 08/03/23 05/04/24 Willi Wells MD [address] Vinayak 304_[place] [address] Rheumatology 02/04/24 Jose Thakur MD 30 [place] [address] [email or web address] Anchorman Pulmonary Disease 03/17/24 Dana Rucker FNP 15 [facility], 2nd [place] [address] [email or web address] Nurse Practitioner Infectious Diseases 05/21/24 Jonathan Alvarez MD [address] [place] [address], [address] [place] [address] Urology 05/14/23 Anival Borja MD [address] [place] [address], [address] [place] [address] Neurologist Neurology 01/04/23 Lyndsay Reynoso FNP [address] [place] [address] [email or web address] Nurse Practitioner Pain Medicine 05/27/22 Gutierrez Pittman MD [address] [place] [address] Special Tester Cardiology 05/27/24 documented as of this encounter Additional Source Comments The information contained in this document represents components of the legal health record. It is not the complete legal health record.[facility]
--- OUTSIDE RECORDS SUMMARY | 2024-06-26 09:30 | XMS_ITS | Encounter Summary ---
Author Organization [facility] Address [address] [place] [address] Care Team Providers Care Survey Party Chief Name Role Phone Charly Saxena Primary Care Provider [phone] Cheryl Calderon MD Primary Care Provider [phone] Encounter Details Date Type Department Care Team (Late st Contact Info) Description 10/15/2016 Orders Only [facility] Rheumatology [address] [place] [address] Abel Fierro MD [address] [place] [address] Social History Tobacco Use Types Packs/Day Years [...] as of this encounter Progress Notes * Abel Fierro MD - 10/16/2016 10:47 AM EDT Copy to PCP Dr Hemanth PALAFOX documented in this encounter Plan of Treatment Not on file documented as of this encounter Procedures * Due to [place] state law, this organization might not be sharing negative HIV tests. Procedure Name Priority Date/Time Associated Diagnosis Comments C-REACTIVE PROTEIN (CRP) - INFLAMMATION Routine 10/15/2016 12:39 PM EDT Rheumatoid arthritis involving multiple sites with positive rheumatoid factor (HCC) [M05.79] ERYTHROCYTE SEDIMENTATION RATE (ESR) Routine 10/15/2016 12:39 PM EDT Rheumatoid arthritis involving multiple sites with positive rheumatoid factor (HCC) [M05.79] CBC INCLUDES DIFFERENTIAL AND PLATELET COUNT Routine 10/15/2016 12:39 PM EDT Rheumatoid arthritis involving multiple sites with positive rheumatoid factor (HCC) [M05.79] ALANINE AMINOTRANSFERASE (ALT), SERUM Routine 10/15/2016 12:39 PM EDT Rheumatoid arthritis involving multiple sites with positive rheumatoid factor (HCC) [M05.79] ASPARTATE AMINOTRANSFERASE (AST), SERUM Routine 10/15/2016 12:39 PM EDT Rheumatoid arthritis involving multiple sites with positive rheumatoid factor (HCC) [M05.79] CREATININE WITH GLOMERULAR FILTRATION RATE, ESTIMATED (EGFR) Routine 10/15/2016 12:39 PM EDT Rheumatoid arthritis involving multiple sites with positive rheumatoid factor (HCC) [M05.79] documented in this encounter Results * Due to [place] state law, this organization might not be sharing negative HIV tests. * C-REACTIVE PROTEIN (CRP) - INFLAMMATION (10/15/2016 12:39 PM EDT) C reactive protein 0.19 <0.80 mg/dL [facility] Comment: Please be advised that patients taking Carboxypenicillins may exhibit falsely decreased C-Reactive Protein levels due to an analytical interference in this assay. 10/15/2016 12:3 9 PM EDT 10/15/2016 7:34 PM EDT Narrative Resulting Agency Comment [id number] us Abel Fierro MD LABORATORY Final Result [facility] [address] [place] [address] * ERYTHROCYTE SEDIMENTATION RATE (ESR), KUNAL (10/15/2016 12:39 PM EDT) Sedimentation Rate [place] (ESR) 11 < OR = 30 mm/h [facility] 10/15/2016 12:3 9 PM EDT 10/15/2016 7:34 PM EDT Narrative Resulting Agency Comment [id number] us Abel Fierro MD LAB SAME DAY RESULT Final Resul t Performing Organization Address [facility] de Phone Number [facility] [address] [place] [address] * CREATININE WITH GLOMERULAR FILTRATION RATE, ESTIMATED (EGFR) (10/15/2016 12:39 PM EDT) Creatinine 0.79 0.50 - 0.99 mg/dL [facility] Comment: For patients >49 years of age, the reference limit for Creatinine is approximately 13% higher for people identified as -[place] Citizen. GFR 81 > OR = 60 mL/min/1. 73m2 [facility] GFR () 94 > OR = 60 mL/min/1. 73m2 [facility] 10/15/2016 12:3 9 PM EDT 10/15/2016 7:34 PM EDT Narrative [facility] - 10/15/2016 11:14 PM EDT Please note that this estimated [...] needs for GFR calculation. Resulting Agency Comment [id number] us Abel Fierro MD LAB SAME DAY RESULT Final Resul t Performing Organization Address [facility] Co de Phone Number [facility] [address] [place] [address] * ALANINE AMINOTRANSFERASE (ALT), SERUM (10/15/2016 12:39 PM EDT) ALT (SGPT) 27 6 - 29 U/L [facility] 10/15/2016 12:3 9 PM EDT 10/15/2016 7:34 PM EDT Narrative Resulting Agency Comment [id number] us Abel Fierro MD LAB SAME DAY RESULT Final Resul t Performing Organization Address City/[facility] Co de Phone Number [facility] [address] [place] [address] * ASPARTATE AMINOTRANSFERASE (AST), SERUM (10/15/2016 12:39 PM EDT) AST (SGOT) 25 10 - 35 U/L [facility] 10/15/2016 12:3 9 PM EDT 10/15/2016 7:34 PM EDT Narrative Resulting Agency Comment [id number] us Abel Fierro MD LAB SAME DAY RESULT Final Resul t Performing Organization Address [facility] de Phone Number [facility] [address] [place] [address] * (ABNORMAL) CBC INCLUDES DIFFERENTIAL AND PLATELET COUNT (10/15/2016 12:39 PM EDT) WBC 8.2 3.8 - 10.8 Thousand/u L [facility] RBC 5.70(H) 3.80 - 5.10 Million/uL [facility] Hemoglobin 16.1(H) 11.7 - 15.5 g/dL [facility] Hematocrit 49.2(H) 35.0 - 45.0 % [facility] MCV 86.2 80.0 - 100.0 fL [facility] MCH 28.2 27.0 - 33.0 pg [facility] MCHC 32.7 32.0 - 36.0 g/dL [facility] RDW 14.9 11.0 - 15.0 % [facility] PLT 298 140 - 400 Thousand/u L [facility] MPV 8.0 7.5 - 12.5 fL [facility] Neutrophils # 4920 1500 - 7800 cells/uL [facility] Lymphocytes # 2001 850 - 3900 cells/uL [facility] Monocytes # 968(H) 200 - 950 cells/uL [facility] Eosinophils # 230 15 - 500 cells/uL [facility] Basophils # 82 0 - 200 cells/uL [facility] Neutrophils % 60.0 % [facility] Lymphocytes % 24.4 % [facility] Monocytes % 11.8 % [facility] Eosinophils % 2.8 % [facility] Basophils % 1.0 % [facility] 10/15/2016 12:3 9 PM EDT 10/15/2016 7:34 PM EDT Narrative Resulting Agency Comment [id number] us Abel Fierro MD LAB SAME DAY RESULT Final Resul t [facility] [address] [place] [address] documented in this encounter Visit Diagnoses Diagnosis Rheumatoid arthritis involving multiple sites with positive rheumatoid factor (HCC) [M05.79] documented in this encounter Care Teams Survey Party Chief Relationship Specialty Start Date End Date Charly Saxena [facility] [address] [place] [address] PCP - General Internal Medicine 05/25/13 07/16/17 Cheryl Calderon MD [facility] [address] [place] [address] PCP - General Internal Medicine 07/17/17 documented as of this encounter
--- OUTSIDE RECORDS SUMMARY | 2024-06-26 09:30 | XMS_ITS | Encounter Summary ---
Author Organization [facility] Address [address] [place] [address] Care Team Providers Care Credit Administration Officer Name Role Phone Charly Saxena Primary Care Provider [phone] Cheryl Calderon MD Primary Care Provider [phone] Encounter Details Date Type Department Care Team (Late st Contact Info) Description 07/15/2017 Orders Only [facility] Rheumatology [address] [place] [address] Abel Fierro MD [address] [place] [address] Social History Tobacco Use Types Packs/Day Years [...] CBC INCLUDES DIFFERENTIAL AND PLATELET COUNT Routine 07/15/2017 1:44 PM EDT Rheumatoid arthritis involving multiple sites, unspecified rheumatoid factor presence (HCC) ALANINE AMINOTRANSFERASE (ALT), SERUM Routine 07/15/2017 1:44 PM EDT Rheumatoid arthritis involving multiple sites, unspecified rheumatoid factor presence (HCC) ASPARTATE AMINOTRANSFERASE (AST), SERUM Routine 07/15/2017 1:44 PM EDT Rheumatoid arthritis involving multiple sites, unspecified rheumatoid factor presence (HCC) CREATININE WITH GLOMERULAR FILTRATION RATE, ESTIMATED (EGFR) Routine 07/15/2017 1:44 PM EDT Rheumatoid arthritis involving multiple sites, unspecified rheumatoid factor presence (HCC) documented in this encounter Results * Due to [place] state law, this organization might not be sharing negative HIV tests. * CREATININE WITH GLOMERULAR FILTRATION RATE, ESTIMATED (EGFR) (07/15/2017 1:44 PM EDT) Creatinine 0.70 0.50 - 0.99 mg/dL [facility] Comment: For patients >49 years of age, the reference limit for Creatinine is approximately 13% higher for people identified as -[place]. GFR 93 > OR = 60 mL/min/1. 73m2 [facility] GFR () 108 > OR = 60 mL/min/1. 73m2 [facility] 07/15/2017 1:44 PM EDT 07/15/2017 6:18 PM EDT Narrative [facility] - 07/15/2017 10:38 PM EDT Please note that this estimated [...] needs for GFR calculation. Resulting Agency Comment [id number] us Abel Fierro MD LAB SAME DAY RESULT Final Resul t [facility] [address] [place] [address] * ALANINE AMINOTRANSFERASE (ALT), SERUM (07/15/2017 1:44 PM EDT) ALT (SGPT) 23 6 - 29 U/L [facility] 07/15/2017 1:44 PM EDT 07/15/2017 6:18 PM EDT Narrative Resulting Agency Comment [id number] Abel Fierro MD LAB SAME DAY RESULT Final Resul t Performing Organization Address City/[facility]/ZIP Co de Phone Number [facility] [address] [place] [address] * ASPARTATE AMINOTRANSFERASE (AST), SERUM (07/15/2017 1:44 PM EDT) AST (SGOT) 28 10 - 35 U/L [facility] 07/15/2017 1:44 PM EDT 07/15/2017 6:18 PM EDT Narrative Resulting Agency Comment [id number] us Abel Fierro MD LAB SAME DAY RESULT Final Resul t Performing Organization Address [facility] de Phone Number [facility] [address] [place] [address] * (ABNORMAL) CBC INCLUDES DIFFERENTIAL AND PLATELET COUNT (07/15/2017 1:44 PM EDT) WBC 7.2 3.8 - 10.8 Thousand/u L [facility] RBC 5.31(H) 3.80 - 5.10 Million/uL [facility] Hemoglobin 15.3 11.7 - 15.5 g/dL [facility] Hematocrit 46.6(H) 35.0 - 45.0 % [facility] MCV 87.7 80.0 - 100.0 fL [facility] MCH 28.8 27.0 - 33.0 pg [facility] MCHC 32.9 32.0 - 36.0 g/dL [facility] RDW 14.3 11.0 - 15.0 % [facility] PLT 292 140 - 400 Thousand/u L [facility] MPV 8.4 7.5 - 12.5 fL [facility] Neutrophils # 5796 1500 - 7800 cells/uL [facility] Lymphocytes # 850 850 - 3900 cells/uL [facility] Monocytes # 432 200 - 950 cells/uL [facility] Eosinophils # 58 15 - 500 cells/uL [facility] Basophils # 65 0 - 200 cells/uL [facility] Neutrophils % 80.5 % [facility] Lymphocytes % 11.8 % [facility] Monocytes % 6.0 % [facility] Eosinophils % 0.8 % [facility] Basophils % 0.9 % [facility] 07/15/2017 1:44 PM EDT 07/15/2017 6:18 PM EDT Narrative Resulting Agency Comment [id number] us Abel Fierro MD LAB SAME DAY RESULT Final Resul t [facility] [address] [place] [address] documented in this encounter Visit Diagnoses Diagnosis Rheumatoid arthritis involving multiple sites, unspecified rheumatoid factor presence documented in this encounter Care Teams Credit Administration Officer Relationship Specialty Start Date End Date Charly Saxena [facility] [address] [place] [address] PCP - General Internal Medicine 05/25/13 07/16/17 Cheryl Calderon MD [facility] Adult Medicine [address] [place] [address] PCP - General Internal Medicine 07/17/17 documented as of this encounter
--- OUTSIDE RECORDS SUMMARY | 2024-06-26 09:30 | XMS_ITS | Encounter Summary ---
Author Organization [facility] Address [phone] [facility] [place] [address] Care Team Providers Care Supervisor Electronics Assembly Name Role Phone JessicaIta oliveira [facility] Primary Care Provider Cash Fernandes MD Unavailable [phone] Seven Menchaca MD Unavailable Chavo Jack MD Primary Care Provider Keren Poon [facility] Primary Care Provid er Chavo Jack MD Unavailable Willi Wells MD Unavailable Jose Thakur MD Unavailable Dana Rucker DIRECTOR WEIGHTS AND MEASURES Unavailable Jonathan Alvarez MD Unavailable [phone] Anival Borja MD Unavailable Lyndsay Reynoso DIRECTOR WEIGHTS AND MEASURES Unavailable Gutierrez Pittman MD Unavailable [phone] Encounter Details Date Type Department Care Team (Late st Contact Info) Description 07/14/2021 Ancillary Orders [facility],Outside Imaging [address] [place] [address] System, Provider Not In, PhD Partners [address] [address] Social History Tobacco Use Types Packs/Day Years [...] high school, GED, job training, learning the [place] language, technical skills, or developing parenting skills)? [...] st Contact Info) Description 06/06/2024 Procedure Pass [facility], [facility]- [address] [address] 06/26/2024 2:00 PM EST [facility] [address] [place] [phone] Miya Monte, [facility] [address] [place] [address] [email or web address] 06/30/2024 1:15 PM EST [facility] [address] [place] [phone] Miya Monte, [facility] [address] [place] [address] [email or web address] 07/01/2024 2:30 PM EST Office Visit [facility] [address] [place] [address] Jose Thakur MD [address] [place] [address] [email or web address] 07/02/2024 2:15 AM EST [facility] [address] [place] [address] Miya Monte, [address] [address] [email or web address] 07/07/2024 3:00 AM EDT [facility] [address] [place] [phone] Miya Monte, [address] [address] [email or web address] 07/09/2024 12:45 AM EDT [facility] [address] [place] [phone] Carlo Merly, PT [address] [place] [address] 07/30/2024 3:30 PM EDT Office Visit [address] [place] [address] Keren Poon, ORI [address] [address] 09/18/2024 2:30 PM EDT Office Visit [facility] Infectious Diseases [address] [place] [address] Dana Rucker, DIRECTOR WEIGHTS AND MEASURES [address] [address] 11/26/2024 3:30 PM EDT Office Visit [address] [place] [address] Keren Poon, ORI [address] [place] [address] 12/11/2024 2:00 PM EDT Appointment [facility] [address] [place] [address] Keren Poon, ORI [address] [place] [address] 06/03/2025 2:00 PM EST Office Visit [address] [place] [address] Keren Poon, ORI [address] [place] [address] documented as of this encounter Results * Mammogram Outside (No Interpretation) (05/15/2016 12:00 AM EST) Narrative SYSTEMGENERATED, DOCUMENTATION - 07/14/2021 1:03 PM EDT This study is for PACS storage only and not for interpretation. Provider Not In System PhD IMG OUTSIDE I MAGING W/OUT INTERPRETATION * Mammogram Outside (No Interpretation) (10/18/2014 12:00 AM EDT) Narrative SYSTEMGENERATED, DOCUMENTATION - 07/14/2021 1:04 PM EDT This study is for PACS storage only and not for interpretation. Provider Not In System PhD IMG OUTSIDE I MAGING W/OUT INTERPRETATION * Mammogram Outside (No Interpretation) (10/15/2013 12:00 AM EDT) Narrative SYSTEMGENERATED, DOCUMENTATION - 07/14/2021 1:05 PM EDT This study is for PACS storage only and not for interpretation. Provider Not In System PhD IMG OUTSIDE I MAGING W/OUT INTERPRETATION * Mammogram Outside (No Interpretation) (10/09/2012 12:00 AM EDT) Narrative SYSTEMGENERATED, DOCUMENTATION - 07/14/2021 1:05 PM EDT This study is for PACS storage only and not for interpretation. Provider Not In System PhD IMG OUTSIDE I MAGING W/OUT INTERPRETATION * Mammogram Outside (No Interpretation) (10/09/2011 12:00 [...] documented as of this encounter Care Teams Supervisor Electronics Assembly Relationship Specialty Start Date End Date Ita Pineda CNP [address] [place] [address] PCP - General Internal Medicine 08/19/20 09/17/22 Chavo Jack MD [address] [place] [address] PCP - General Internal Medicine 09/18/22 01/30/23 Keren Poon CNP [address] [place] [address], [address] [place] [address] PCP - General Family Medicine 01/31/23 Cash Fernandes MD [address] [place] [address] Gastroenterology 08/23/20 Seven Menchaca MD [address] [place] [address] Insurance Assigned Provider 08/04/22 08/03/23 Chavo Jack MD [address] [place] [address] Insurance Assigned Provider 08/03/23 05/04/24 Willi Wells MD [address]_[place] [address] Rheumatology 02/04/24 Jose Thakur MD [address] [place] [address] Cardiology Tech Pulmonary Disease 03/17/24 Dana Rucker FNP [address] [place] [address], [address] [place] [address] [email or web address] Nurse Practitioner Infectious Diseases 05/21/24 Jonathan Alvarez MD [address] [place] [address], [address] [place] [address] Urology 05/14/23 Anival Borja MD [address] [place] [address], [address] [place] [address] Neurologist Neurology 01/04/23 Lyndsay Reynoso FNP [address] [place] [address] [address] [place] [address] [email or web address] Practitioner Pain Medicine 05/27/22 Gutierrez Pittman MD [address] [place] [phone] Modeling And Simulation Analyst Cardiology 05/27/24 documented as of this encounter Additional Source Comments The information contained in this document represents components of the legal health record. It is not the complete legal health record.[facility]
--- OUTSIDE RECORDS SUMMARY | 2024-06-26 09:30 | XMS_ITS | Encounter Summary ---
Author Organization [facility] Address [address] [place] [address] Care Team Providers Care Dancer Or Choreographer Name Role Phone Alberto Pacheco Primary Care Provider [phone] Charly Saxena Primary Care Provider [phone] Cheryl Calderon MD Primary Care Provider Encounter Details Date Type Department Care Team (Late st Contact Info) Description 01/18/2009 Orders Only [facility] Rheumatology [address] [place] [address] Abel Fierro MD [address] [place] [address] Social History Tobacco Use Types Packs/Day Years Used Date Smoking Tobacco: Never Alcohol Use Standard Drinks/Week Comments [...] of this encounter Procedures * Due to [place] state law, this organization might not be sharing negative HIV tests. Procedure Name Priority Date/Time Associated Diagnosis Comments C-REACTIVE PROTEIN (CRP), QUANTITATIVE, SERUM INFLAMMATION Routine 01/18/2009 Rheumatoid Arthritis (HCC) Encounter for Long-Term (Current) Use of Other Medications CREATININE WITH GLOMERULAR FILTRATION RATE, ESTIMATED (EGFR) Routine 01/18/2009 Rheumatoid Arthritis ([facility]) Encounter for Long-Term (Current) Use of Other Medications SED RATE ESR Routine 01/18/2009 Rheumatoid Arthritis ([facility]) Encounter for Long-Term (Current) Use of Other Medications CBC 5 PART DIFF Routine 01/18/2009 Rheumatoid Arthritis ([facility]) Encounter for Long-Term (Current) Use of Other Medications ALANINE AMINOTRANSFERASE (ALT), SERUM Routine 01/18/2009 Rheumatoid Arthritis ([facility]) Encounter for Long-Term (Current) Use of Other Medications ASPARTATE AMINOTRANSFERASE (AST), SERUM Routine 01/18/2009 Rheumatoid Arthritis ([facility]) Encounter for Long-Term (Current) Use of Other Medications ALBUMIN Routine 01/18/2009 Rheumatoid Arthritis ([facility]) Encounter for Long-Term (Current) Use of Other Medications documented in this encounter Results * Due to [place] state law, this organization might not be sharing negative HIV tests. * C-REACTIVE PROTEIN (CRP), QUANTITATIVE, SERUM INFLAMMATION (01/18/2009) C REACTIVE PROTEIN (CRP) 0.6 0 - 0.7 MG/DL [facility] 01/18/2009 01/18/2009 8:1 8 PM EDT us Abel Fierro MD LABORATORY Final Result Performing Organization Address City/[facility] Co de Phone Number [facility] [address] [place] [address] * SED RATE ESR (01/18/2009) ESR (ERYTHROCYTE SEDIMENTATION RATE) 5 0 - 30 MM/HR [facility] 01/18/2009 01/18/2009 8:1 8 PM EDT us Abel Fierro MD LAB SAME DAY RESULT Final Resul t Performing Organization Address City/[facility]/ZIP Co de Phone Number [facility] [address] [place] [address] * ALBUMIN (01/18/2009) ALBUMIN 3.8 3.5 - 4.9 G/DL [facility] 01/18/2009 01/18/2009 8:1 8 PM EDT us Abel Fierro MD LAB SAME DAY RESULT Final Resul t Performing Organization Address [facility] de Phone Number [facility] [address] [place] [address] * CREATININE WITH GLOMERULAR FILTRATION RATE, ESTIMATED (EGFR) (01/18/2009) CREATININE 0.60 0.60 - 1.10 MG/DL [facility] GFR > 60 60 AND ABOVE [facility] Comment:UNITS: ML/MIN/1.73 S Q METERS EGFR > 60 60 AND ABOVE [facility] Comment:UNITS: ML/MIN/1.73 S Q METERS 01/18/2009 01/18/2009 8:1 8 PM EDT Narrative [facility] - 01/19/2009 3:11 AM EDT Please note that this estimated [...] with more precise needs for GFR calculation. us Abel Fierro MD LAB SAME DAY RESULT Final Resul t Performing Organization Address [facility] de Phone Number [facility] [address] [place] [address] * ALANINE AMINOTRANSFERASE (ALT), SERUM (01/18/2009) ALT (SGPT) 20 6 - 40 U/L [facility] 01/18/2009 01/18/2009 8:1 8 PM EDT us Abel Fierro MD LAB SAME DAY RESULT Final Resul t Performing Organization Address [facility] Co de Phone Number [facility] [address] [place] [address] * ASPARTATE AMINOTRANSFERASE (AST), SERUM (01/18/2009) AST (SGOT) 19 10 - 35 U/L [facility] 01/18/2009 01/18/2009 8:1 8 PM EDT us Abel Fierro MD LAB SAME DAY RESULT Final Resul t [facility] [address] [place] [address] * (ABNORMAL) CBC 5 PART DIFF (01/18/2009) WHITE BLOOD COUNT 6.5 3.8 - 10.8 THOUS/UL [facility] RBC 4.76 3.80 - 5.10 MIL/UL [facility] Hemoglobin 14.3 11.7 - 15.5 G/DL [facility] HCT (HEMATOCRIT) 41.9 35.0 - 45.0 % [facility] MCV 88.0 80.0 - 100.0 FL [facility] MCH 29.9 27.0 - 33.0 PG [facility] MCHC 34.0 32.0 - 36.0 G/DL [facility] BAND % 0 0 - 5 % [facility] NEUTROPHIL % 61 48 - 75 % [facility] LYMPHOCYTE % 25 17 - 40 % [facility] MONOCYTE % 10 0 - 14 % [facility] EOSINOPHIL % 3 0 - 5 % [facility] BASOPHIL % 1 0 - 3 % [facility] ATYPICAL LYMPHOCYTE % 0 0 - 5 % [facility] PLATELETS 261 140 - 400 THOUS/UL [facility] BANDS # 0 0 - 750 CELLS/MCL [facility] NEUTROPHILS # 3965 1500 - 7800 CELLS/MCL [facility] LYMPHOCYTES # 1625 850 - 3900 CELLS/MCL [facility] MONOCYTES # 650 200 - 950 CELLS/MCL [facility] EOSINOPHILS # 195 15 - 550 CELLS/MCL [facility] BASOPHILS # 65 0 - 200 CELLS/MCL [facility] ATYPICAL LYMPHOCYTES # 0 0 - 200 CELLS/MCL [facility] RDW 16.3(H) 11.0 - 15.0 % [facility] MPV 7.8 7.5 - 11.5 FL [facility] 01/18/2009 01/18/2009 8:1 8 PM EDT us Abel Fierro MD LAB SAME DAY RESULT Final Resul t [facility] [address] [place] [address] documented in this encounter Visit Diagnoses Diagnosis Rheumatoid arthritis(714.0) Rheumatoid arthritis Encounter for long-term (current) use of other medications documented in this encounter Care Teams Dancer Or Choreographer Relationship Specialty Start Date End Date Alberto Pacheco [address] [place] [address] PCP - General 07/19/08 05/24/13 Charly Saxena [facility] [place] [address] PCP - General Internal Medicine 05/25/13 07/16/17 Cheryl Calderon MD [facility] Adult Medicine [address] [place] [address] PCP - General Internal Medicine 07/17/17 documented as of this encounter
--- OUTSIDE RECORDS SUMMARY | 2024-06-26 09:30 | XMS_ITS | Encounter Summary ---
Author Organization [facility] Address [address] [place] [address] Care Team Providers Care Electronics Technician Name Role Phone Charly Saxena Primary Care Provider [phone] Cheryl Calderon MD Primary Care Provider [phone] Encounter Details Date Type Department Care Team (Late st Contact Info) Description 02/14/2017 Orders Only [facility] Rheumatology [address] [place] [address] Abel Fierro MD [address] [place] [address] Social History Tobacco Use Types Packs/Day Years [...] CBC INCLUDES DIFFERENTIAL AND PLATELET COUNT Routine 02/14/2017 2:31 PM EDT Rheumatoid arthritis involving multiple sites with positive rheumatoid factor (HCC) ALANINE AMINOTRANSFERASE (ALT), SERUM Routine 02/14/2017 2:31 PM EDT Rheumatoid arthritis involving multiple sites with positive rheumatoid factor (HCC) ASPARTATE AMINOTRANSFERASE (AST), SERUM Routine 02/14/2017 2:31 PM EDT Rheumatoid arthritis involving multiple sites with positive rheumatoid factor (HCC) CREATININE WITH GLOMERULAR FILTRATION RATE, ESTIMATED (EGFR) Routine 02/14/2017 2:31 PM EDT Rheumatoid arthritis involving multiple sites with positive rheumatoid factor (HCC) documented in this encounter Results * Due to [place] state law, this organization might not be sharing negative HIV tests. * ALANINE AMINOTRANSFERASE (ALT), SERUM (02/14/2017 2:31 PM EDT) ALT (SGPT) 27 6 - 29 U/L [facility] 02/14/2017 2:31 PM EDT 02/14/2017 9:13 PM EDT Narrative Resulting Agency Comment [id number] us Abel Fierro MD LAB SAME DAY RESULT Final Resul t Performing Organization Address [facility] Co de Phone Number [facility] [address] [place] [address] * ASPARTATE AMINOTRANSFERASE (AST), SERUM (02/14/2017 2:31 PM EDT) AST (SGOT) 27 10 - 35 U/L [facility] 02/14/2017 2:31 PM EDT 02/14/2017 9:13 PM EDT Narrative Resulting Agency Comment [id number] us Abel Fierro MD LAB SAME DAY RESULT Final Resul t Performing Organization Address [facility] Co de Phone Number [facility] [address] [place] [address] * CREATININE WITH GLOMERULAR FILTRATION RATE, ESTIMATED (EGFR) (02/14/2017 2:31 PM EDT) Creatinine 0.80 0.50 - 0.99 mg/dL [facility] Comment: For patients >49 years of age, the reference limit for Creatinine is approximately 13% higher for people identified as -Jamaican. GFR 79 > OR = 60 mL/min/1. 73m2 [facility] GFR () 92 > OR = 60 mL/min/1. 73m2 [facility] 02/14/2017 2:31 PM EDT 02/14/2017 9:13 PM EDT Narrative [facility] - 02/15/2017 2:15 AM EDT Please note that this estimated [...] needs for GFR calculation. Resulting Agency Comment [id number] us Abel Fierro MD LAB SAME DAY RESULT Final Resul t [facility] [address] [place] [address] * (ABNORMAL) CBC INCLUDES DIFFERENTIAL AND PLATELET COUNT (02/14/2017 2:31 PM EDT) WBC 6.1 3.8 - 10.8 Thousand/u L [facility] RBC 5.58(H) 3.80 - 5.10 Million/uL [facility] Hemoglobin 16.0(H) 11.7 - 15.5 g/dL [facility] Hematocrit 49.6(H) 35.0 - 45.0 % [facility] MCV 88.9 80.0 - 100.0 fL [facility] MCH 28.6 27.0 - 33.0 pg [facility] MCHC 32.2 32.0 - 36.0 g/dL [facility] RDW 14.1 11.0 - 15.0 % [facility] PLT 293 140 - 400 Thousand/u L [facility] MPV 7.7 7.5 - 12.5 fL [facility] Neutrophils # 3007 1500 - 7800 cells/uL [facility] Lymphocytes # 2251 850 - 3900 cells/uL [facility] Monocytes # 653 200 - 950 cells/uL [facility] Eosinophils # 153 15 - 500 cells/uL [facility] Basophils # 37 0 - 200 cells/uL [facility] Neutrophils % 49.3 % [facility] Lymphocytes % 36.9 % [facility] Monocytes % 10.7 % [facility] Eosinophils % 2.5 % [facility] Basophils % 0.6 % [facility] 02/14/2017 2:31 PM EDT 02/14/2017 9:13 PM EDT Narrative Resulting Agency Comment [id number] us Abel Fierro MD LAB SAME DAY RESULT Final Resul t [facility] [address] [place] [address] documented in this encounter Visit Diagnoses Diagnosis Rheumatoid arthritis involving multiple sites with positive rheumatoid factor (HCC) documented in this encounter Care Teams Electronics Technician Relationship Specialty Start Date End Date Charly Saxena [facility] [address] [place] [address] PCP - General Internal Medicine 05/25/13 07/16/17 Cheryl Calderon MD [facility] Adult Medicine [address] [place] [address] PCP - General Internal Medicine 07/17/17 documented as of this encounter
--- OUTSIDE RECORDS SUMMARY | 2024-06-26 09:30 | XMS_ITS | Encounter Summary ---
Author Organization [facility] Address [address] [place] [address] Care Team Providers Care Health Lead Name Role Phone Cheryl Calderon MD Primary Care Provider [phone] Encounter Details Date Type Department Care Team (Late st Contact Info) Description 07/15/2018 Orders Only [facility]. Rheumatology [address] [place] [phone] Melanie Aguirre MD [address] [place] [address] Social History Tobacco Use Types Packs/Day Years [...] Comments C-REACTIVE PROTEIN (CRP) - INFLAMMATION Routine 07/15/2018 4:34 PM EDT Rheumatoid arthritis involving multiple sites with positive rheumatoid factor (HCC) ERYTHROCYTE SEDIMENTATION RATE (ESR) Routine 07/15/2018 4:34 PM EDT Rheumatoid arthritis involving multiple sites with positive rheumatoid factor (HCC) CBC INCLUDES DIFFERENTIAL AND PLATELET COUNT Routine 07/15/2018 4:34 PM EDT Rheumatoid arthritis involving multiple sites with positive rheumatoid factor (HCC) COMPREHENSIVE METABOLIC PANEL WITH GFR Routine 07/15/2018 4:34 PM EDT Rheumatoid arthritis involving multiple sites with positive rheumatoid factor (HCC) documented in this encounter Results * Due to [place] state law, this organization might not be sharing negative HIV tests. * C-REACTIVE PROTEIN (CRP) - INFLAMMATION (07/15/2018 4:34 PM EDT) C reactive protein 4.8 <8.0 mg/L [facility] 07/15/2018 4:34 PM EDT 07/16/2018 12:27 AM EDT Narrative Resulting Agency Comment [id number] us Melanie Aguirre MD LABORATORY Final Result Performing Organization Address [facility]/ZIP Co de Phone Number [facility] [address] [place] [address] * (ABNORMAL) ERYTHROCYTE SEDIMENTATION RATE (ESR), WESTERGREN (07/15/2018 4:34 PM EDT) Sedimentation Rate [place] (ESR) 50(H) < OR = 30 mm/h [facility] 07/15/2018 4:34 PM EDT 07/16/2018 12:27 AM EDT Narrative Resulting Agency Comment [id number] us Melanie Aguirre MD LAB SAME DAY RESULT Final Result Performing Organization Address [facility] Co de Phone Number [facility] [address] [place] [address] * (ABNORMAL) COMPREHENSIVE METABOLIC PANEL WITH GFR (07/15/2018 4:34 PM EDT) Glucose 106(H) 65 - 99 mg/dL [facility] Comment: ? Fasting reference interval For someone without known diabetes, a glucose value between 100 and 125 mg/dL is consistent with prediabetes and should be confirmed with a follow-up test. Urea Nitrogen Blood (BUN) 11 7 - 25 mg/dL [facility] Creatinine 0.64 0.50 - 0.99 mg/dL [facility] Comment: For patients >49 years of age, the reference limit for Creatinine is approximately 13% higher for people identified as -Nicaraguan. EGFR 95 > OR = 60 mL/min/1 .73m2 [facility] GFR () 110 > OR = 60 mL/min/1 .73m2 [facility] BUN/Creatinine Ratio NOT APPLICABLE 6 - 22 (calc) [facility] Sodium 144 135 - 146 mmol/L [facility] Potassium 4.4 3.5 - 5.3 mmol/L [facility] Chloride 112(H) 98 - 110 mmol/L [facility] Carbon dioxide 26 20 - 32 mmol/L [facility] Calcium 8.8 8.6 - 10.4 mg/dL [facility] Protein Total (Serum) 6.0(L) 6.1 - 8.1 g/dL [facility] Albumin 3.8 3.6 - 5.1 g/dL [facility] Globulin 2.2 1.9 - 3.7 g/dL (calc) [facility] Albumin/Globulin 1.7 1.0 - 2.5 (calc) [facility] Bilirubin Total 0.3 0.2 - 1.2 mg/dL [facility] Alkaline phosphatase 85 33 - 130 U/L [facility] AST (SGOT) 29 10 - 35 U/L [facility] ALT (SGPT) 29 6 - 29 U/L [facility] 07/15/2018 4:34 PM EDT 07/16/2018 12:27 AM EDT Narrative [facility] - 07/16/2018 3:09 AM EDT Please note that this [...] with more precise needs for GFR calculation. Melanie Aguirre MD LABORATORY Final Result [facility] [address] [place] [address] * (ABNORMAL) CBC INCLUDES DIFFERENTIAL AND PLATELET COUNT (07/15/2018 4:34 PM EDT) WBC 3.2(L) 3.8 - 10.8 Thousand/u L [facility] RBC 4.58 3.80 - 5.10 Million/uL [facility] Hemoglobin 12.4 11.7 - 15.5 g/dL [facility] Hematocrit 38.1 35.0 - 45.0 % [facility] MCV 83.2 80.0 - 100.0 fL [facility] MCH 27.1 27.0 - 33.0 pg [facility] MCHC 32.5 32.0 - 36.0 g/dL [facility] RDW 14.7 11.0 - 15.0 % [facility] PLT 154 140 - 400 Thousand/u L [facility] MPV 11.4 7.5 - 12.5 fL [facility] Neutrophils # 2381 1500 - 7800 cells/uL [facility] Lymphocytes # 502(L) 850 - 3900 cells/uL [facility] Monocytes # 298 200 - 950 cells/uL [facility] Eosinophils # 10(L) 15 - 500 cells/uL [facility] Basophils # 10 0 - 200 cells/uL [facility] Neutrophils % 74.4 % [facility] Lymphocytes % 15.7 % [facility] Monocytes % 9.3 % [facility] Eosinophils % 0.3 % [facility] Basophils % 0.3 % [facility] 07/15/2018 4:34 PM EDT 07/16/2018 12:27 AM EDT Narrative Resulting Agency Comment [id number] Melanie Aguirre MD LAB SAME DAY RESULT Final Result Performing Organization Address City/State/[place] de Phone Number [facility] [address] [place] [address] documented in this encounter Visit Diagnoses Diagnosis Rheumatoid arthritis involving multiple sites with positive rheumatoid factor (HCC) documented in this encounter Care Teams Health Lead Relationship Specialty Start Date End Date Cheryl Calderon MD [facility] Adult Medicine [address] [place] [phone] PCP - General Internal Medicine 07/17/17 documented as of this encounter
--- OUTSIDE RECORDS SUMMARY | 2024-06-26 09:30 | XMS_ITS | Encounter Summary ---
Author Organization [facility] Address [phone] Formerly [facility] [employer] [place] [address] Care Team Providers Care Para Machine Operator Name Role Phone Patrick Sanchez MD Unavailable [phone] Cheryl Calderon MD Primary Care Provider Keren Mabry MD Unavailable Louisa Hogan MD Unavailable Charly Saxena DO Unavailable [phone] Abhinav Muhammad MD Unavailable [phone] Cheryl Giraldo NP Unavailable Wilfrido Steel MD Unavailable Sharon Martin PA-C Unavailable Ita Pineda CRYPTOGRAPHIC CENTER SPECIALIST Primary Care Provider Cash Fernandes MD Unavailable [phone] Seven Menchaca MD Unavailable Chavo Jack MD Primary Care Provider [phone] Keren Poon [facility] Primary Care Provid er Chavo Jack MD Unavailable Willi Wells MD Unavailable Jose Thakur MD Unavailable Chaim Dana Jaimeley HEAT TREATER HEAD Unavailable Jonathan Alvarez MD Unavailable [phone] Anival Borja MD Unavailable [phone] [place] Lyndsay Linda HEAT TREATER HEAD Unavailable Gutierrez Pittman MD Unavailable [phone] Encounter Details Date Type Department Care Team (Late st Contact Info) Description 04/30/2018 Procedure Pass BWF Periop 6th floor [address] [phone] Social History Tobacco Use Types Packs/Day Years [...] (Late Contact Info) Description 06/06/2024 Procedure Pass [facility] [address] [place] [address] 06/26/2024 2:00 PM EST [facility] [address] [place] [phone] Miya Monte, SENIOR VALIDATION ENGINEER [address] [place] [address] [email or web address] 06/30/2024 1:15 PM EST [facility] [address] [place] [phone] Miya Monte, SENIOR VALIDATION ENGINEER [address] [place] [address] 07/01/2024 2:30 PM EST Office Visit [facility] Pul[facility], Allergy and Critical Care Medicine [address] [place] [address] Jose Thakur MD [address] [place] [address] 07/02/2024 2:15 AM EST [facility] [address] [place] [phone] Miya Monte, SENIOR VALIDATION ENGINEER [address] [place] [address] 07/07/2024 3:00 AM EDT Home [facility] Visit [facility] [address] [place] [phone] Miya Monte, [facility] [address] [place] [address] 07/09/2024 12:45 AM EDT Home Care Visit [facility] [address] [place] [phone] Merly Matos, PT [address] [place] [address] 07/30/2024 3:30 PM EDT Office Visit [facility] [address] [place] [address] [place] [address] Keren Poon, CRYPTOGRAPHIC CENTER SPECIALIST [address] [place] [address] 09/18/2024 2:30 PM EDT Office Visit [facility] Infectious Diseases [address] [place] [address] Dana Rucker FNP [address] [address] 11/26/2024 3:30 PM EDT Office Visit [address] [place], [place] [address] Keren Poon, ORI [address] [place] [address] 12/11/2024 2:00 PM EDT Appointment [address] [address] Keren Poon, ORI [address] [place] [address] 06/03/2025 2:00 PM EST Office Visit [address] [place], [place] [address] Keren Poon, ORI [address] [place] [address] documented as of this encounter Visit Diagnoses [...] documented as of this encounter Care Teams Para Machine Operator Relationship Specialty Start Date End Date Cheryl Calderon MD [address] [place] [address] PCP - General Family Medicine 04/23/18 08/18/20 Ita Pineda CNP [address] [place] [address] [email or web address] PCP - General Internal Medicine 08/19/20 09/17/22 Chavo Jack MD [address] [place] [address] [email or web address] PCP - General Internal Medicine 09/18/22 01/30/23 Keren Poon CNP [address] [place] [address], 2[address] [place] [address] [email or web address] PCP - General Family Medicine 01/31/23 Patrick Sanchez MD [address] [place] [address] Department [place] [address] [email or web address] Historical LMR Provider 09/10/14 Keren Mabry MD [address] [place] [address] Historical LMR Provider 07/10/18 Louisa Hogan MD [address] [place] [address] [email or web address] Historical LMR Provider 07/10/1807/29 Charly Saxena DO [facility] [address] [place] [address] Historical LMR Provider 07/10/18 Abhinav Muhammad MD 115 [facility] [address] [place] [address] [email or web address] Historical LMR Provider 07/10/18 08/22/20 Cheryl Giraldo DELIVERY SPECIALIST [address] [place] [address] Historical LMR Provider 07/10/18 Wilfrido Steel MD [address] [facility] [place] [address] Historical LMR Provider 07/10/18 Sharon Martin PA-C 115 [facility] [address] [place] [address] [email or web address] Historical LMR Provider 07/10/18 08/22/20 Cash Fernandes MD [address] [place] [address] Gastroenterology 08/23/20 Seven Menchaca MD [address] [place] [address] [email or web address] Insurance Assigned Provider 08/04/22 08/03/23 Chavo Jack MD [address] [place] [address] Insurance Assigned Provider 08/03/23 05/04/24 Willi Wells MD [address] [facility] [address]_[place] [address] Rheumatology 02/04/24 Jose Thakur MD [address] [place] [address] [email or web address] Research Support Specialist Pulmonary Disease 03/17/24 Dana Rucker FNP 15 [facility], 2nd [place] [address] [email or web address] Nurse Practitioner Infectious Diseases 05/21/24 Jonathan Alvarez MD [address] [place] [address], [address] [place] [address] [email or web address] Urology 05/14/23 Anival Borja MD [address] [place] [address], [address] [place] [address] Neurologist Neurology 01/04/23 Lyndsay Reynoso FNP [address] [place] [address] Drive [address] [place] [address] [email or web address] Nurse Practitioner Pain Medicine 05/27/22 Gutierrez Pittman MD [address] [place] [phone] Web Marketing Strategist Cardiology 05/27/24 documented as of this encounter Additional Source Comments The information contained in this document represents components of the legal health record. It is not the complete legal health record.[facility]
--- OUTSIDE RECORDS SUMMARY | 2024-06-26 09:30 | XMS_ITS | Encounter Summary ---
Author Organization [facility] Address [address] [place] [address] Care Team Providers Care Paint Prepper Name Role Phone Charly Saxena Primary Care Provider [phone] Cheryl Calderon MD Primary Care Provider [phone] Encounter Details Date Type Department Care Team (Late st Contact Info) Description 04/18/2017 Orders Only [facility] Rheumatology [address] [place] [address] Abel Fierro MD [address] [place] [address] Social History Tobacco Use Types Packs/Day Years [...] Progress Notes * Abel Fierro MD - 04/19/2017 2:54 PM EST I called and told her labs perfect. documented in this encounter Plan of Treatment Not on file documented as of this encounter Procedures * Due to [place] state law, this organization might not be sharing negative HIV tests. Procedure Name Priority Date/Time Associated Diagnosis Comments C-REACTIVE PROTEIN (CRP) - INFLAMMATION Routine 04/18/2017 12:15 PM EST Rheumatoid arthritis involving multiple sites with positive rheumatoid factor (HCC) ERYTHROCYTE SEDIMENTATION RATE (ESR) Routine 04/18/2017 12:15 PM EST Rheumatoid arthritis involving multiple sites with positive rheumatoid factor (HCC) CBC INCLUDES DIFFERENTIAL AND PLATELET COUNT Routine 04/18/2017 12:15 PM EST Rheumatoid arthritis involving multiple sites with positive rheumatoid factor (HCC) ALANINE AMINOTRANSFERASE (ALT), SERUM Routine 04/18/2017 12:15 PM EST Rheumatoid arthritis involving multiple sites with positive rheumatoid factor (HCC) ASPARTATE AMINOTRANSFERASE (AST), SERUM Routine 04/18/2017 12:15 PM EST Rheumatoid arthritis involving multiple sites with positive rheumatoid factor (HCC) CREATININE WITH GLOMERULAR FILTRATION RATE, ESTIMATED (EGFR) Routine 04/18/2017 12:15 PM EST Rheumatoid arthritis involving multiple sites with positive rheumatoid factor (HCC) documented in this encounter Results * Due to [place] state law, this organization might not be sharing negative HIV tests. * C-REACTIVE PROTEIN (CRP) - INFLAMMATION (04/18/2017 12:15 PM EST) C reactive protein 1.5 <8.0 mg/L [facility] 04/18/2017 12:1 5 PM EST 04/18/2017 5:02 PM EST Narrative Resulting Agency Comment [id number] us Abel Fierro MD LABORATORY Final Result [facility] [address] [place] [address] * ERYTHROCYTE SEDIMENTATION RATE (ESR), JOSEERGREN (04/18/2017 12:15 PM EST) Sedimentation Rate [place] (ESR) 9 < OR = 30 mm/h [facility] 04/18/2017 12:1 5 PM EST 04/18/2017 5:02 PM EST Narrative Resulting Agency Comment [id number] us Abel Fierro MD LAB SAME DAY RESULT Final Resul t Performing Organization Address City/[facility] Co de Phone Number [facility] [address] [place] [address] * CREATININE WITH GLOMERULAR FILTRATION RATE, ESTIMATED (EGFR) (04/18/2017 12:15 PM EST) Creatinine 0.88 0.50 - 0.99 mg/dL [facility] Comment: For patients >49 years of age, the reference limit for Creatinine is approximately 13% higher for people identified as -Ethiopian. GFR 70 > OR = 60 mL/min/1. 73m2 [facility] GFR () 82 > OR = 60 mL/min/1. 73m2 [facility] 04/18/2017 12:1 5 PM EST 04/18/2017 5:02 PM EST Narrative [facility] - 04/18/2017 8:53 PM EST Please note that this estimated [...] needs for GFR calculation. Resulting Agency Comment [id number] us Abel Fierro MD LAB SAME DAY RESULT Final Resul t Performing Organization Address [facility] Co de Phone Number [facility] [address] [place] [address] * ALANINE AMINOTRANSFERASE (ALT), SERUM (04/18/2017 12:15 PM EST) ALT (SGPT) 19 6 - 29 U/L [facility] 04/18/2017 12:1 5 PM EST 04/18/2017 5:02 PM EST Narrative Resulting Agency Comment [id number] us Abel Fierro MD LAB SAME DAY RESULT Final Resul t Performing Organization Address [facility] Co de Phone Number [facility] [address] [place] [address] * ASPARTATE AMINOTRANSFERASE (AST), SERUM (04/18/2017 12:15 PM EST) AST (SGOT) 19 10 - 35 U/L [facility] 04/18/2017 12:1 5 PM EST 04/18/2017 5:02 PM EST Narrative Resulting Agency Comment [id number] Abel Fierro MD LAB SAME DAY RESULT Final Resul t Performing Organization Address [facility] de Phone Number [facility] [address] [place] [address] * CBC INCLUDES DIFFERENTIAL AND PLATELET COUNT (04/18/2017 12:15 PM EST) WBC 5.7 3.8 - 10.8 Thousand/u L [facility] RBC 4.92 3.80 - 5.10 Million/uL [facility] Hemoglobin 14.2 11.7 - 15.5 g/dL [facility] Hematocrit 43.4 35.0 - 45.0 % [facility] MCV 88.2 80.0 - 100.0 fL [facility] MCH 28.8 27.0 - 33.0 pg [facility] MCHC 32.7 32.0 - 36.0 g/dL [facility] RDW 14.2 11.0 - 15.0 % [facility] PLT 265 140 - 400 Thousand/u L [facility] MPV 7.7 7.5 - 12.5 fL [facility] Neutrophils # 2970 1500 - 7800 cells/uL [facility] Lymphocytes # 1744 850 - 3900 cells/uL [facility] Monocytes # 809 200 - 950 cells/uL [facility] Eosinophils # 154 15 - 500 cells/uL [facility] Basophils # 23 0 - 200 cells/uL [facility] Neutrophils % 52.1 % [facility] Lymphocytes % 30.6 % [facility] Monocytes % 14.2 % [facility] Eosinophils % 2.7 % [facility] Basophils % 0.4 % [facility] 04/18/2017 12:1 5 PM EST 04/18/2017 5:02 PM EST Narrative Resulting Agency Comment [id number] us Abel Fierro MD LAB SAME DAY RESULT Final Resul t Performing Organization Address [facility] Co de Phone Number [facility] [address] [place] [address] documented in this encounter Visit Diagnoses Diagnosis Rheumatoid arthritis involving multiple sites with positive rheumatoid factor (HCC) documented in this encounter Care Teams Paint Prepper Relationship Specialty Start Date End Date Charly Saxena [facility] [address] [place] [address] PCP - General Internal Medicine 05/25/13 07/16/17 Cheryl Calderon MD [facility] Adult Medicine [address] [place] [address] PCP - General Internal Medicine 07/17/17 documented as of this encounter
--- OUTSIDE RECORDS SUMMARY | 2024-06-26 09:30 | XMS_ITS | Encounter Summary ---
Author Organization [facility] Address [address] [place] [address] Care Team Providers Care Migrant Leader Name Role Phone Cheryl Calderon MD Primary Care Provider Encounter Details Date Type Department Care Team (Late st Contact Info) Description 03/14/2018 Orders Only [facility]. Rheumatology [address] [place] [phone] Abel Fierro MD [address] [place] [address] Social History Tobacco Use Types Packs/Day Years [...] of this encounter Procedures * Due to [place] state law, this organization might not be sharing negative HIV tests. Procedure Name Priority Date/Time Associated Diagnosis Comments RHEUMATOID FACTOR, SERUM Routine 018 1:47 PM EST Rheumatoid arthritis involving multiple sites with positive rheumatoid factor (HCC) C-REACTIVE PROTEIN (CRP) - INFLAMMATION Routine 03/14/2018 1:47 PM EST Rheumatoid arthritis involving multiple sites with positive rheumatoid factor (HCC) ERYTHROCYTE SEDIMENTATION RATE (ESR) Routine 03/14/2018 1:47 PM EST Rheumatoid arthritis involving multiple sites with positive rheumatoid factor (HCC) CBC INCLUDES DIFFERENTIAL AND PLATELET COUNT Routine 03/14/2018 1:47 PM EST Rheumatoid arthritis involving multiple sites with positive rheumatoid factor (HCC) ALANINE AMINOTRANSFERASE (ALT), SERUM Routine 03/14/2018 1:47 PM EST Rheumatoid arthritis involving multiple sites with positive rheumatoid factor (HCC) ASPARTATE AMINOTRANSFERASE (AST), SERUM Routine 03/14/2018 1:47 PM EST Rheumatoid arthritis involving multiple sites with positive rheumatoid factor (HCC) CREATININE WITH GLOMERULAR FILTRATION RATE, ESTIMATED (EGFR) Routine 03/14/2018 1:47 PM EST Rheumatoid arthritis involving multiple sites with positive rheumatoid factor (HCC) documented in this encounter Results * Due to [place] state law, this organization might not be sharing negative HIV tests. * (ABNORMAL) RHEUMATOID FACTOR, SERUM (03/14/2018 1:47 PM EST) Rheumatoid Factor (Quant) 327(H) <14 IU/mL [facility] 03/14/2018 1:47 PM EST 03/14/2018 9:19 PM EST Narrative Resulting Agency Comment [id number] us Abel Fierro MD LABORATORY Final Result Performing Organization Address [facility] Co de Phone Number [facility] [address] [place] [address] * C-REACTIVE PROTEIN (CRP) - INFLAMMATION (03/14/2018 1:47 PM EST) C reactive protein 1.7 <8.0 mg/L [facility] 03/14/2018 1:47 PM EST 03/14/2018 9:19 PM EST Narrative Resulting Agency Comment [id number] us Abel Fierro MD LABORATORY Final Result Performing Organization Address [facility] Co de Phone Number [facility] [address] [place] [address] * ERYTHROCYTE SEDIMENTATION RATE (ESR), [place] (03/14/2018 1:47 PM EST) Sedimentation Rate [place] (ESR) 19 < OR = 30 mm/h [facility] 03/14/2018 1:47 PM EST 03/14/2018 9:19 PM EST Narrative Resulting Agency Comment [id number] Abel Fierro MD LAB SAME DAY RESULT Final Resul t Performing Organization Address [facility] Co de Phone Number [facility] [address] [place] [address] * CREATININE WITH GLOMERULAR FILTRATION RATE, ESTIMATED (EGFR) (03/14/2018 1:47 PM EST) Creatinine 0.70 0.50 - 0.99 mg/dL [facility] Comment: For patients >49 years of age, the reference limit for Creatinine is approximately 13% higher for people identified as -Micronesian. GFR 92 > OR = 60 mL/min/1. 73m2 [facility] GFR () 107 > OR = 60 mL/min/1. 73m2 [facility] 03/14/2018 1:47 PM EST 03/14/2018 9:19 PM EST Narrative [facility] - 03/14/2018 11:36 PM EST Please note that this estimated [...] needs for GFR calculation. Resulting Agency Comment [id number] us Abel Fierro MD LAB SAME DAY RESULT Final Resul t Performing Organization Address [facility] Co de Phone Number [facility] [address] [place] [address] * ALANINE AMINOTRANSFERASE (ALT), SERUM (03/14/2018 1:47 PM EST) ALT (SGPT) 18 6 - 29 U/L [facility] 03/14/2018 1:47 PM EST 03/14/2018 9:19 PM EST Narrative Resulting Agency Comment [id number] us Abel Fierro MD LAB SAME DAY RESULT Final Resul t Performing Organization Address [facility] Co de Phone Number [facility] [address] [place] [address] * ASPARTATE AMINOTRANSFERASE (AST), SERUM (03/14/2018 1:47 PM EST) AST (SGOT) 23 10 - 35 U/L [facility] 03/14/2018 1:47 PM EST 03/14/2018 9:19 PM EST Narrative Resulting Agency Comment [id number] us Abel Fierro MD LAB SAME DAY RESULT Final Resul t Performing Organization Address [facility] de Phone Number [facility] [address] [place] [phone] * (ABNORMAL) CBC INCLUDES DIFFERENTIAL AND PLATELET COUNT (03/14/2018 1:47 PM EST) WBC 5.3 3.8 - 10.8 Thousand/u L [facility] RBC 5.61(H) 3.80 - 5.10 Million/uL [facility] Hemoglobin 15.6(H) 11.7 - 15.5 g/dL [facility] Hematocrit 47.2(H) 35.0 - 45.0 % [facility] MCV 84.1 80.0 - 100.0 fL [facility] MCH 27.8 27.0 - 33.0 pg [facility] MCHC 33.1 32.0 - 36.0 g/dL [facility] RDW 12.3 11.0 - 15.0 % [facility] PLT 320 140 - 400 Thousand/u L [facility] MPV 9.9 7.5 - 12.5 fL [facility] Neutrophils # 3646 1500 - 7800 cells/uL [facility] Lymphocytes # 1134 850 - 3900 cells/uL [facility] Monocytes # 451 200 - 950 cells/uL [facility] Eosinophils # 48 15 - 500 cells/uL [facility] Basophils # 21 0 - 200 cells/uL [facility] Neutrophils % 68.8 % [facility] Lymphocytes % 21.4 % [facility] Monocytes % 8.5 % [facility] Eosinophils % 0.9 % [facility] Basophils % 0.4 % [facility] 03/14/2018 1:47 PM EST 03/14/2018 9:19 PM EST Narrative Resulting Agency Comment [id number] us Abel Fierro MD LAB SAME DAY RESULT Final Resul t [facility] [address] [place] [address] documented in this encounter Visit Diagnoses Diagnosis Rheumatoid arthritis involving multiple sites with positive rheumatoid factor (HCC) documented in this encounter Care Teams Migrant Leader Relationship Specialty Start Date End Date Cheryl Calderon MD [facility] Adult Medicine [address] [place] [id number] PCP - General Internal Medicine 07/17/17 documented as of this encounter
--- OUTSIDE RECORDS SUMMARY | 2024-06-26 09:30 | XMS_ITS | Data Portability ---
Author Organization [place] [facility] Address [address] [place] [address] Care Team Providers Care Shoe Repairman Name Role Phone TOMMIE SOLOMON Primary Care Provider Assessment Encounter Date Assessment Date Assessment LastModified by Organization Details LastModified Time 07/27/2020 07/27/2020 Overview/History : Pt is a 65yo F with PMH sig for RA, HLD, CAD, PR, and Dementia. Pt started with sx of a UTI over a week ago and was started on Macrobid. This resulted in n/v and pt needing to report to the ER. Pt was changed to Keflex and was doing well for a few days and then the n/v restarted. While at the ER pt stopped her Seroquel 100mg qHS and decided not to restart it. The n/v started a few days after being home and without the Seroquel. Pt also has not had a BM since 07/19. This is not uncommon for the pt and she has been taking zofran to help with the nausea. Exam: Pt is A/Ox3, non-toxic appearing, VSS, HRR, resp reg and unlabored on RA, lungs CTA bilat. Abd is soft, mild tenderness to the epigastric area with deep palpation, no distention, +BSx4. DDx considered, but not limited to: Medication Reaction: likely the cause of the n/v given the sudden stop in medication at a dose of 100mg qHS Dehydration: mild given reports of poor PO intake recently Lyte abnormality: unlikely given normal lytes on BMP ACS: unlikely given pt is in no acute distress, VSS, CP is reproducible. Constipation: likely given lack of BM in several days with decreased PO intake and use of Zofran SBO: unlikely, abd is soft, only mildly tender with deep palpation, normal BSx4 Work up/Results: BMP: WNL Plan/Discussion: Pt given 500ml of NS to help with mild dehydration. Disscussed that sx are likely r/t stopping seroquel suddenly. Advised on use of OTC supp to help with consitipation and if no BM in 24/48 hours and/or worsening sx to report to the ER. Patients PCP contacted and updated on patient status. Patient verbalized understanding of discharge instructions and when to follow up with PCP/911/ED as needed. Patient in agreement with current plan and treatment. In order to obtain further information and compare any laboratory results/values, I have accessed old patient records. This information was pertinent in my medical decision making today. kvng Not available 07/27/2020 19:22:16 Plan of Treatment Reminders Order Date Submit Date Provider Last Modified By Organization Details Last Modified Time Details Appointments None recorded. Lab BMP + ionized calcium, serum or plasma 2020 [facility], [address] [place] [address], [id number], 11:50:39 Referral None recorded. Procedures None recorded. Surgeries None recorded. Imaging None recorded. Medication Orders sodium chloride 0.9 % intraveno us solution 2020 021 [id number], [address] [place], [address], 19:06:01 Patient TargetsNo targets recorded. Patient Instructions Encounter Date Encounter Id Patient Instructions Last Modified By Organization Details Last Modified Time 07/27/2020 [id number] Acute Nausea and Vomiting/Diarrhea You were seen today for nausea and vomiting over the last few days. On exam there were no acute findings that would indicated that you should report to the ER at this time. Your symptoms seem to be related to abruptly stopping your seroquel which can cause nausea and vomiting. The other concern is the lack of a bowel movement since 07/19/20. Your bowel sounds are good, there is no distension and only mild discomfort with us pressing on your belly. We recommend trying to use a suppository to promote a bowel movement. If you have not had a bowel movement in the next 24-48 hours and/or the vomiting and abdominal pain worsens please report to the ER immediately for further evaluation. BASIC INFORMATION Acute nausea and vomiting often start suddenly, worsen quickly, and last a few hours to 24 hours. Nausea and vomiting most often occur together, although they can occur alone. Cases of acute nausea and vomiting are often from gastrointestinal viruses such as norovirus, rotavirus and influenza. Less often it can be caused by toxins released from food that ? g oes bad? as well as some types of bacteria and parasites. Diarrhea can also occur. Your nurse practitioner will conduct a careful history to help determine if you have one of the more serious causes. The cause of your nausea and vomiting may be unknown. INSTRUCTIONS Medicines: 1) Anti-nausea: You may have been given a prescription for an anti nausea medicine such as Zofran, Phenergan or Compazine. These can be used every 6-8 hours to help prevent nausea and vomiting. They can make you sleepy, so do not drive after taking them. Be sure to read all of the drug information from the pharmacy. 2) Tylenol: Low grade fever is common with acute nausea and vomiting. You may use Tylenol, per the recommended dosing on the label, to help control fever. If you have liver disease, do not use Tylenol. Ask your [employer] TR[employer] DRIVER how to address fever if you are concerned about Tylenol use. 3) Anti-diarrheal medicines: These are available [id number], but in some cases are not recommended and can even worsen some cases of intestinal problems. Ask your [employer] TR[employer] DRIVER if you should use them. In children under 12, the only anti-diarrheal that should be considered is Kaopectate. Diet: 1) For the next 12-24 hours, take clear liquids only. No dairy and no caffeinated beverages. After you have not vomited for a complete hour (either with or without the help of the anti-nausea medicine), begin by taking one tablespoon of clear liquid every 15 minutes for one hour. If you are able to tolerate this, you may increase the amount to 2 tablespoons every hour for the next 2 hours. 2) Clear liquids such as gatorade, pedialyte or broth are recommended because of the electrolytes and sugars that will help replenish the losses from vomiting and diarrhea. 3) If you are able to tolerate clear liquids as instructed above, you may begin to take a bland diet. Plain pasta/noodles or toast are suggestions. If you have had diarrhea, bananas, rice and applesauce are suggested as these can help make the stools more solid. Avoid greasy, fatty or fried foods FOLLOW UP You should make an appointment to see your primary care provider within 24 hours or sooner for worsening condition as described below. If you do not have a primary care doctor, you should follow up with one of the PCP suggestions from [facility]. SEEK CARE IMMEDIATELY IF: 1) You are still unable to tolerate any oral intake after 24 hours 2) You have blood in your vomit or stool 3) You develop severe abdominal pain that does not go away after an episode of vomiting or diarrhea 4) You have severe dizziness, heart palpitations or are passing out 5) You develop severe muscle cramps or weakness 6) You have not made urine in over 24 hours If you develop any new or worsening symptoms and need after hours care, please go to nearest ER and/or call 911. If you have additional concerns or develop a change in your condition between 8am-10pm, please call [facility] at [phone] to help navigate your care. kvng Not available 07/27/2020 19:09:34 Reason for Referral None Reported. Results Created Date Observation Date Name Description Value Unit Range Abnormal Flag Note LastModifiedBy Organization Detail LastModifiedTime 07/28/19 21 07/27/2020 BMP + ioniz ed calci um, serum or plasm a glu 87 mg/dL 70-105 Not Available [facility] [address] [place], [address], 07/28/2020 11:50:39 07/28/19 21 07/27/2020 BMP + ioniz ed calci um, serum or plasm a BUN 6 mg/dL 8-26 Not Available [facility] [address] [place], [address], 07/28/2020 11:50:39 07/28/19 21 07/27/2020 BMP + ioniz ed calci um, serum or plasm a crea 0.5 mg/dL 0.6-1. 3 Not Available [address], [address], 07/28/2020 11:50:39 07/28/19 21 07/27/2020 BMP + ioniz ed calci um, serum or plasm a Na 140 mmol/ L 138-14 6 Not Available [address], [address], 07/28/2020 11:50:39 07/28/19 21 07/27/2020 BMP + ioniz ed calci um, serum or plasm a K 3.6 mmol/ L 3.5-4. 9 Not Available [address], [address], 07/28/2020 11:50:39 07/28/19 21 07/27/2020 BMP + ioniz ed calci um, serum or plasm a cL 103 mmol/ L 98-109 Not Available [address], [address], 07/28/2020 11:50:39 07/28/19 21 07/27/2020 BMP + ioniz ed calci um, serum or plasm a TCO2 27 mmol/ L 24-29 Not Available [address], [address], 07/28/2020 11:50:39 07/28/19 21 07/27/2020 BMP + ioniz ed calci um, serum or plasm a angap 15 mmol/ L 10-20 Not Available [address], [address], 07/28/2020 11:50:39 07/28/19 21 07/27/2020 BMP + ioniz ed calci um, serum or plasm a ica 1.17 mmol/ L 1.12-1 .32 Not Available [address], [address], 07/28/2020 11:50:39 07/28/19 21 07/27/2020 BMP + ioniz ed calci um, serum or plasm a HCT 48 %pcv 38-51 Not Available [facility] [address] [place], [address], 07/28/2020 11:50:39 07/28/19 21 07/27/2020 BMP + ioniz ed calci um, serum or plasm a Hb 16.3 g/dL 12-17 Not Available [facility] [address] [place], [address], 07/28/2020 11:50:39 Result Notes None recorded. Procedures Surgical History Date Name Laterality Status Provider Name and Address Organization Details Recorded Time IV Start Procedure - DH completed ALESSANDRO ROSE NP [address], [place], [address], [place] [facility] 07/27/2020 18:57:10 Imaging Results None recorded. Procedure Notes None recorded. Medical Equipment None Reported. Allergies Allergen ID Allergen Name Allergen Category Reaction Reaction Severity Criticality Documentation Date Start Date Code Code System Note Provider Name and Address Organization Details Recorded Time 322479 Substance with sulfonami de structure and antibacte rial mechanism of action (substanc e) medicatio n Not available Not available Not available 07/27/2020 37970 8003 SNOMED ALESSANDRO ROSE NP [address] [place], [address], [place] [facility] 18:10:58 572170 codeine medicatio n Not available Not available Not available 07/27/2020 2670 RxNorm ALESSANDRO ROSE NP [address] [place], [address], [place] [facility] 18:11:08 388891 Macrobid medicatio n Not available Not available Not available 07/27/2020 38841 1 RxNorm [facility]ESSANDRO ROSE [facility] [address] [facility] [place], [address] , [place] [facility] 18:21:43 Medications Name Sig Start Date Stop Date Status Note LastModified by Organization Details LastModified Time quetiapine 25 mg tablet TAKE THREE TABLETS BY MOUTH EVERY DAY AT BEDTIME 07/27 completed Not Available Not Available Not Available fluoxetine 40 mg capsule TAKE 2 CAPSULES BY MOUTH DAILY active Not Available Not Available No t Available cefuroxime axetil 250 mg tablet TAKE ONE TABLET BY MOUTH TWICE A DAY FOR 2 DAYS 07/27 completed Not Available Not Available Not Available atorvastati n 20 mg tablet TAKE ONE TABLET BY MOUTH EVERY DAY active Not Available Not Available No t Available carvedilol 12.5 mg tablet TAKE ONE TABLET BY MOUTH TWICE A DAY 07/27 completed Not Available Not Available Not Available ofloxacin 0.3 % eye drops INSTILL 2 DROPS IN RIGHT EYE 4 TIMES A DAY,X5 DAYS 07/27 completed Not Available Not Available Not Available fluconazole 150 mg tablet TAKE 1 TABLET BY MOUTH ONCE 07/27 completed Not Available Not Available Not Available hydrocodone 5 mg-acetamin ophen 325 mg tablet TAKE ONE TABLET BY MOUTH TWICE A DAY NEEDED FOR PAIN 07/27 completed Not Available Not Available Not Available ondansetron HCl 4 mg tablet TAKE 1 TABLET BY MOUTH EVERY 8 HOURS active Not Available Not Available No t Available alendronate 70 mg tablet TAKE ONE TABLET BY MOUTH EVERY WEEK active Not Available Not Available No t Available warfarin 2.5 mg tablet TAKE 1 2 TABLETS BY MOUTH DAILY DIRECTED BY PCP OFFICE 07/27 completed Not Available Not Available Not Available ciprofloxac in 250 mg tablet TAKE ONE TABLET BY MOUTH EVERY 12 HOURS FOR 5 DAYS 07/27 completed Not Available Not Available Not Available quetiapine 100 mg tablet TAKE ONE TABLET BY MOUTH EVERY DAY AT BEDTIME *DOSE INCREASE* active Not Available Not Available No t Available amoxicillin 500 mg tablet TAKE 1 TABLET BY MOUTH 3 TIMES A DAY FOR 7 DAYS 07/27 completed Not Available Not Available Not Available levothyroxi ne 75 mcg tablet TAKE ONE TABLET BY MOUTH EVERY DAY 07/27 completed Not Available Not Available Not Available levothyroxi ne 88 mcg tablet TAKE ONE TABLET BY MOUTH EVERY DAY active Not Available Not Available No t Available potassium chloride ER 20 mEq tablet,exte nded release(par t/cryst) TAKE TWO TABLETS BY MOUTH TWICE A DAY active Not Available Not Available No t Available prednisone 1 mg tablet TAKE 1 TABLET UP TO FOUR TIMES A DAY active Not Available Not Available No t Available cephalexin 500 mg capsule TAKE ONE CAPSULE BY MOUTH FOUR TIMES A DAY FOR 7 DAYS 07/27 completed Not Available Not Available Not Available pantoprazol e 40 mg tablet,asim yed release TAKE 1 TABLET BY MOUTH TWICE A DAY 07/27 completed Not Available Not Available Not Available sodium chloride 0.9 % intravenous solution 500ml administe red on scene. Time administe red: 1842020 active Not Available Not Available Not Avai lable ondansetron 4 mg disintegrat ing tablet DISSOLVE ONE TABLET BY MOUTH EVERY 8 HOURS NEEDED FOR NAUSEA AND VOMITING active Not Available Not Available No t Available fluticasone propionate 50 mcg/actuati on nasal spray,suspe nsion USE 1 SPRAY IN EACH NOSTRIL TWICE A DAY 07/27 completed Not Available Not Available Not Available oxycodone 5 mg tablet TAKE ONE TABLET BY MOUTH THREE TIMES A DAY FOR 7 DAYS NEEDED FOR PAIN 07/27 completed Not Available Not Available Not Available Phos-NaK 280 mg-160 mg-250 mg oral powder packet TAKE 1 PACKET BY MOUTH DAILY 07/27 completed Not Available Not Available Not Available bupropion HCl XL 150 mg 24 hr tablet, extended release TAKE THREE TABLETS BY MOUTH EVERY DAY active Not Available Not Available No t Available nitrofurant oin monohydrate /macrocryst als 100 mg capsule TAKE ONE CAPSULE BY MOUTH TWICE A DAY FOR 5 DAYS 07/27 completed Not Available Not Available Not Available solifenacin 10 mg tablet TAKE 1 TABLET BY MOUTH EVERY DAY 07/27 completed Not Available Not Available Not Available blood pressure test kit-large cuff 07/27 completed Not Available Not Available Not Available Eliquis 5 mg tablet TAKE ONE TABLET BY MOUTH TWICE A DAY active Not Available Not Available No t Available Vitals Date Recorded Respiratory rate Heart rate Oxygen saturation Oxygen saturation in Arterial blood by Pulse oximetry Body temperature Systolic blood pressure Diastolic blood pressure Provider Name and Address Organization Details Last Updated DateTime 18 /min 79 /min 94 % 94 % 98 [degF] 118 mm[Hg] 78 mm[Hg] Not Available [facility] 18:18:57 Social History Question Answer Notes LastModified by Organizat ion Details LastModified Time Tobacco Smoking Status Never Smoker ALESSANDRO ROSE, [employer] [address], [place], [address], [place] [facility] 07/27/2020 18:17:39 Do You Have An Advance Directive? Yes Information not available 07/27/2020 What Is Your Code Status? DNR Information not available 07/27/2020 Within The Past 12 Months, Has It Happened That The Food You Bought Just Didn't Last And You Didn't Have Money To Get More. No Information not available 07/27/2020 Within The Past 12 Months, Have You Worried That Your Food Would Run Out Before You Got Money To Buy More. No Information not available 07/27/2020 Fall Risk: Do You Feel Unsteady When Standing Or Walking? Yes Information not available 07/27/2020 We Know That How And When People Interact With Friends And Family Can Be Very Different From Person To Person. How Often Do You Have The Opportunity To See Or Talk To People That You Care About And Feel Close To? (Ex: Talking To Friends On The Phone Or Visiting Friends Or Family Or Going To [employer] Or Club Meetings) 3 Or 4 Times Per Week Information not available 07/27/2020 Excessive Alcohol Or Drug Use No Information not available 07/27/2020 We Know From Many Of Our Patients That Covering All Of Their Costs Can Be Difficult At Times. This Can Cause Stress And Impact Health. In The Past Year, Have You Been Unable To Get Any Of The Following When It Was Really Needed? No Information not available 07/27/2020 What Is Your Housing Situation Today? I Have Housing Information not available 07/27/2020 Would You Like Help Connecting To Resources? None Information not available 07/27/2020 Sex: Unknown Functional Status None recorded. Mental Status None recorded. Family History Relationship Description Onset Age of this Age Resolved Age Notes LastModified by Organization Details LastModified Time Father Malignant neoplastic disease kvng Not available 07/27 18:18:43 Medical History Condition Response Diabetes N Coronary Artery Disease Y High Cholesterol Y Cancer N Pulmonary Embolism N Stroke N Hypertension N Asthma N COPD N Depression Y Kidney Disease N Gynecological HistoryNo gynecological history recorded. Obstetrics History GPAL:G 0 P 0 0 0 0 Past Encounters Encounter ID Performer Location Encounter Start Date Encounter Closed Date Diagnosis/Indication Diagnosis SNOMED-CT Code Diagnosis ICD10 Code Diagnosis Note [id number] ALESSANDRO ROSE, [facility] [address] [facility] [place] [address] 07/27/2020 18:07:59 07/28/2020 18:11:10 Acute vomiting 09156035 R11.10 Adverse re action to drug 14362508 T50.905A withdrawal sx from abruptly stopping seroquel 100mg qHS Mild dehydration 3764404 119 108 E86.0 Constipation 51555996 K5 9.00 Health Concerns Section Related Observation LastModified by Organization Detai ls LastModified Time None Recorded Concern Status LastModified by Organization Details LastModified Time None Recorded Advance Directives Directive Y: Payers Encounter Date Sequence Insurance Name Policy Number Policy Jernigan Covered Member ID Jernigan Member ID Guarantor Name 07/27/2020 1 [place] [employer] Opal Juares [id number] Opal Juares 07/27/2020 2 [place] 113 Opal Juares [id number] Opal Juares Notes Date Note Type Note Provider Name and Address Organization Details Recorded Time 07/27/2020 text/html Last week pt started to have some increased confusion which is often associated with a UTI. called PCP and decision was made to start pt on Macrobid given her hx of recurrent UTIs. Within a few hours of taking the first dose pt started to have n/v and it got worse so called 911 and had pt transported to the ER. Pt was switched to keflex and the vomiting had stopped. pick pt up and brought her home. For a few days pt seemed to be doing well. Later in the week she started with the n/v again. reports a similar episode almost exactly 2 months ago after taking a dose of Macrobid. followed with the PCP over the last weekend to see if 6-7 days was enough of the antibiotic and was advised to continue the antibiotic. Pt reports that everything on her hurts. Last BM was on 07/19. Pt is taking a stool softner. Pt has been able to keep some food down intermittently. Pt normally has a poor appetite. Pt has Zofran for the nausea and is taking zofran maybe twice a day but not always consistently. Pt took the last dose of keflex yesterday. Pt reports pain in her abd and chest. States her chest feels tight, she thinks it is related to throwing up. Pt reports pain in her chest with coughing and deep breathing, reports pain with touching the area as well. Pt reports pain to the abd is intermittent. Report abd pain to the epigastric area. ALESSANDRO ROSE, JULI [address], [place], [address], [place] [facility] 07/27/2020 19:22:24 OBGyn Episode No OBEpisode recorded.
--- OUTSIDE RECORDS SUMMARY | 2024-06-26 09:30 | XMS_ITS | Encounter Summary ---
Author Organization [facility] Address [address] [place] [address] Care Team Providers Care Mash Tub Cooker Operator Name Role Phone Alberto Pacheco Primary Care Provider [phone] Unknown Pcp, Non [facility] Primary Care Provider Unava ilable Charly Saexna Primary Care Provider [phone] Charly Saxena Primary Care Provider Cheryl Calderon MD Primary Care Provider [phone] Encounter Details Date Type Department Care Team (Late st Contact Info) Description 02/04/2007 Orders Only [facility] [address] [place] [address] Abel Fierro MD [address] [place] [address] Social History Tobacco Use Types Packs/Day Years [...] this encounter Procedures * Due to [place] [employer] law, this organization might not be sharing negative HIV tests. Procedure Name Priority Date/Time Associated Diagnosis Comments CBC 5 PART DIFF Routine 02/04/2007 RHEUMATOID ARTHRITIS ASPARTATE AMINOTRANSFERASE (AST), SERUM Routine 02/04/2007 RHEUMATOID ARTHRITIS documented in this encounter Results * Due to [place] state law, this organization might not be sharing negative HIV tests. * ASPARTATE AMINOTRANSFERASE (AST), SERUM (02/04/2007) AST (SGOT) 16 10 - 35 U/L [facility] (CLIA# [id number]) 02/04/2007 02/04/2007 7:3 1 PM EDT us Abel Fierro MD LAB SAME DAY RESULT Final Resul t [facility] (CLIA# [id number]) [address] [place] [address] * (ABNORMAL) CBC 5 PART DIFF (02/04/2007) WHITE BLOOD COUNT 9.7 3.8 - 10.8 THOUS/UL [facility] (CLIA# [id number]) RBC 5.08 3.80 - 5.10 MIL/UL [facility] (CLIA# [id number]) Hemoglobin 15.4 11.7 - 15.5 G/DL [facility] (CLIA# [id number]) HCT (HEMATOCRIT) 45.3(H) 35.0 - 45.0 % [facility] (CLIA# [id number]) MCV 89.2 80.0 - 100.0 FL [facility] (CLIA# [id number]) MCH 30.4 27.0 - 33.0 PG [facility] (CLIA# [id number]) MCHC 34.1 32.0 - 36.0 G/DL [facility] (CLIA# [id number]) BAND % 0 0 - 5 % [facility] (CLIA# [id number]) NEUTROPHIL % 84(H) 48 - 75 % [facility] (CLIA# [id number]) LYMPHOCYTE % 10(L) 17 - 40 % [facility] (CLIA# [id number]) MONOCYTE % 6 0 - 14 % [facility] (CLIA# [id number]) EOSINOPHIL % 0 0 - 5 % [facility] (CLIA# [id number]) BASOPHIL % 0 0 - 3 % [facility] (CLIA# [id number]) ATYPICAL LYMPHOCYTE % 0 0 - 5 % [facility] (CLIA# [id number]) PLATELETS 392 140 - 400 THOUS/UL [facility] (CLIA# [id number]) BANDS # 0 0 - 750 CELLS/MCL [facility] (CLIA# [id number]) NEUTROPHILS # 8148(H) 1500 - 7800 CELLS/MCL [facility] (CLIA# [id number]) LYMPHOCYTES # 970 850 - 3900 CELLS/MCL [facility] (CLIA# [id number]) MONOCYTES # 582 200 - 950 CELLS/MCL [facility] (CLIA# [id number]) EOSINOPHILS # 0(L) 15 - 550 CELLS/MCL [facility] (CLIA# [id number]) BASOPHILS # 0 0 - 200 CELLS/MCL [facility] (CLIA# [id number]) ATYPICAL LYMPHOCYTES # 0 0 - 200 /UL [facility] (CLIA# [id number]) RDW 14.6 11.0 - 15.0 % [facility] (CLIA# [id number]) MPV 7.6 7.5 - 11.5 FL [facility] (CLIA# [id number]) 02/04/2007 02/04/2007 7:3 1 PM EDT us Abel Fierro MD LAB SAME DAY RESULT Final Resul t [facility] (CLIA# [id number]) [address] [place] [address] documented in this encounter Visit Diagnoses Diagnosis RHEUMATOID ARTHRITIS Rheumatoid arthritis documented in this encounter Care Teams Mash Tub Cooker Operator Relationship Specialty Start Date End Date Alberto Pacheco [address] [place] [address] PCP - General 07/19/08 05/24/13 Unknown Pcp, Non [facility] PCP - General 06/30/08 07/18/08 Charly Saxena [facility] [address] [place] [address] PCP - General 01/18/06 06/29/08 Charly Saxena [facility] [address] [place] [address] PCP - General Internal Medicine 05/25/13 07/16/17 Cheryl Calderon MD [facility] [address] [place] [address] PCP - General Internal Medicine 07/17/17 documented as of this encounter
--- OUTSIDE RECORDS SUMMARY | 2024-06-26 09:30 | XMS_ITS | Encounter Summary ---
Author Organization [facility] Address [address] [place] [address] Care Team Providers Care Data Warehouse Consultant Name Role Phone Cheryl Calderon MD Primary Care Provider [phone] Encounter Details Date Type Department Care Team (Late st Contact Info) Description 09/30/2018 Orders Only [facility]. Rheumatology [address] [place] [phone] Melanie Aguirre MD [address] [place] [address] Social History Tobacco Use Types Packs/Day Years [...] of this encounter Procedures * Due to [place] state law, this organization might not be sharing negative HIV tests. Procedure Name Priority Date/Time Associated Diagnosis Comments QUANTIFERON-TB GOLD Routine 09/30/2018 1 1:38 AM EDT Rheumatoid arthritis involving multiple sites with positive rheumatoid factor (HCC) PASTORA IFA, W/ REFLEX TO TITER/PATTERN/COMPREHENSIVE AB PANEL Routine 09/30/2018 11:38 AM EDT Rheumatoid arthritis involving multiple sites with positive rheumatoid factor (HCC) HEPATITIS B SURFACE ANTIGEN Routine 07/2018 11:38 AM EDT Rheumatoid arthritis involving multiple sites with positive rheumatoid factor (HCC) HEPATITIS C AB WITH REFLEX TO RNA PCR, SERUM Routine 09/30/2018 11:38 AM EDT Rheumatoid arthritis involving multiple sites with positive rheumatoid factor (HCC) SM/PHYSICAL THER ANTIBODY Routine 09/30/2018 11:38 AM EDT Rheumatoid arthritis involving multiple sites with positive rheumatoid factor (HCC) PHYSICAL THER ANTIBODY Routine 09/30/2018 11:38 AM EDT Rheumatoid arthritis involving multiple sites with positive rheumatoid factor (HCC) SJOGRENS SYNDROME ANTIBODIES (SSA AND SSB) Routine 09/30/2018 11:38 AM EDT Rheumatoid arthritis involving multiple sites with positive rheumatoid factor (HCC) DNA (DS) ANTIBODY Routine 09/30/2018 11: 38 AM EDT Rheumatoid arthritis involving multiple sites with positive rheumatoid factor (HCC) C-REACTIVE PROTEIN (CRP) - INFLAMMATION Routine 09/30/2018 11:38 AM EDT Rheumatoid arthritis involving multiple sites with positive rheumatoid factor (HCC) ERYTHROCYTE SEDIMENTATION RATE (ESR) Routine 09/30/2018 11:38 AM EDT Rheumatoid arthritis involving multiple sites with positive rheumatoid factor (HCC) CBC INCLUDES DIFFERENTIAL AND PLATELET COUNT Routine 09/30/2018 11:38 AM EDT Rheumatoid arthritis involving multiple sites with positive rheumatoid factor (HCC) TSH, 3RD GENERATION Routine 09/30/2018 1 1:38 AM EDT Rheumatoid arthritis involving multiple sites with positive rheumatoid factor (HCC) CYCLIC CITRULLINATEDPEPTIDE CCP AB IGG Routine 09/30/2018 11:38 AM EDT Rheumatoid arthritis involving multiple sites with positive rheumatoid factor (HCC) COMPREHENSIVE METABOLIC PANEL WITH GFR Routine 09/30/2018 11:38 AM EDT Rheumatoid arthritis involving multiple sites with positive rheumatoid factor (HCC) documented in this encounter Results * Due to [place] state law, this organization might not be sharing negative HIV tests. * TSH, 3RD GENERATION (09/30/2018 11:38 AM EDT) TSH 2.54 0.40 - 4.50 mIU/L [facility] 09/30/2018 11:3 8 AM EDT 09/30/2018 9:04 PM EDT Narrative Resulting Agency Comment [id number] Melanie Aguirre MD LABORATORY Final Result Performing Organization Address [facility] Co de Phone Number [facility] [address] [place] [address] * (ABNORMAL) SJOGRENS SYNDROME ANTIBODIES (SSA AND SSB) (09/30/2018 11:38 AM EDT) Sjogrens syndrome-A extractable nuclear Ab 4.1 POS(A) <1.0 NEG AI [facility] Sjogrens syndrome-B extractable nuclear Ab <1.0 NEG <1.0 NEG AI [facility] 09/30/2018 11:3 8 AM EDT 09/30/2018 9:04 PM EDT Narrative Resulting Agency Comment [id number] us Melanie Aguirre MD LABORATORY Final Result Performing Organization Address [facility] Co de Phone Number [facility] [address] [place] [address] * (ABNORMAL) ERYTHROCYTE SEDIMENTATION RATE (ESR), WE[place]GR[place] (09/30/2018 11:38 AM EDT) Sedimentation Rate [place] (ESR) 45(H) < OR = 30 mm/h [facility] 09/30/2018 11:3 8 AM EDT 09/30/2018 9:04 PM EDT Narrative Resulting Agency Comment [id number] us Melanie Aguirre MD LAB SAME DAY RESULT Final Result Performing Organization Address [facility] Co de Phone Number [facility] [address] [place] [address] * PHYSICAL THER ANTIBODY (09/30/2018 11:38 AM EDT) Ribonucleoprotein extractable nuclear Ab <1.0 NEG <1.0 NEG AI [facility] 09/30/2018 11:3 8 AM EDT 09/30/2018 9:04 PM EDT Narrative Resulting Agency Comment [id number] Melanie Aguirre MD LABORATORY Final Result Performing Organization Address [facility]/ZIP Co de Phone Number [facility] [address] [place] [address] * QUANTIFERON-TB GOLD (09/30/2018 11:38 AM EDT) Quantiferon(R)-TB Gold Plus NEGATIVE NEGATIVE [facility] Comment: Negative test result. M. tuberculosis complex infection unlikely. NIL 0.02 IU/mL [facility] MITOGEN-NIL 0.77 IU/mL [facility] Mycobacterium tuberculosis tuberculin stimulated gamma interferon^correc shayy for background 0.01 IU/mL [facility] TB2-NIL 0.02 IU/mL [facility] Comment: The Nil tube value reflects the background interferon gamma immune response of the patient's blood sample. This value has been subtracted from the patient's displayed TB and Mitogen results. Lower than expected results with the Mitogen tube prevent false-negative Quantiferon readings by detecting a patient with a potential immune suppressive condition and/or suboptimal pre-analytical specimen handling. The TB1 Antigen tube is coated with the M. tuberculosis-specific antigens designed to elicit responses from TB antigen primed CD4+ helper T-lymphocytes. The TB2 Antigen tube is coated with the M. tuberculosis-specific antigens designed to elicit responses from TB antigen primed CD4+ helper and CD8+ cytotoxic T-lymphocytes. For additional information, please refer to https://education.BuzzSpice.RightScale/faq/WCC655 (This link is being provided for informational/ educational purposes only.) 09/30/2018 11:3 8 AM EDT 09/30/2018 9:04 PM EDT Narrative Resulting Agency Comment [id number] us Melanie Aguirre MD LABORATORY Final Result Performing Organization Address [facility]/State/ZIP Co de Phone Number [facility] [address] [place] [address] * HEPATITIS C AB WITH REFLEX TO RNA PCR, SERUM (09/30/2018 11:38 AM EDT) Hepatitis C virus Ab NON-REACT MANOLO NON-REACT MANOLO [facility] Hepatitis C virus Ab Signal/Cutoff 0.01 <1.00 [facility] Comment: HCV antibody was non-reactive. There is no laboratory evidence of HCV infection. In most cases, no further action is required. However, if recent HCV exposure is suspected, a test for HCV RNA (test code 48936) is suggested. For additional information please refer to http://education.uTrack TV/faq/BCF63b1 (This link is being provided for informational/ educational purposes only.) 09/30/2018 11:3 8 AM EDT 09/30/2018 9:04 PM EDT Narrative Resulting Agency Comment [id number] Melanie Aguirre MD LABORATORY Final Result Performing Organization Address [facility] Co de Phone Number [facility] [address] [place] [address] * HEPATITIS B SURFACE ANTIGEN (09/30/2018 11:38 AM EDT) Pathologist [facility] Hepatitis B virus surface Ag NON-REACTI VE NON-REACT MANOLO [facility] 09/30/2018 11:3 8 AM EDT 09/30/2018 9:04 PM EDT Narrative Resulting Agency Comment [id number] Melanie Aguirre MD LABORATORY Final Result Performing Organization Address [facility] Co de Phone Number [facility] [address] [place] [address] * (ABNORMAL) C-REACTIVE PROTEIN (CRP) - INFLAMMATION (09/30/2018 11:38 AM EDT) Pathologist [facility] C reactive protein 10.9(H) <8.0 mg/L [facility] 09/30/2018 11:3 8 AM EDT 09/30/2018 9:04 PM EDT Narrative Resulting Agency Comment [id number] Melanie Aguirre MD LABORATORY Final Result [facility] [address] [place] [address] * (ABNORMAL) COMPREHENSIVE METABOLIC PANEL WITH GFR (09/30/2018 11:38 AM EDT) Glucose 104(H) 65 - 99 mg/dL [facility] Comment: ? Fasting reference interval For someone without known diabetes, a glucose value between 100 and 125 mg/dL is consistent with prediabetes and should be confirmed with a follow-up test. Urea Nitrogen Blood (BUN) 13 7 - 25 mg/dL [facility] Creatinine 0.81 0.50 - 0.99 mg/dL [facility] Comment: For patients >49 years of age, the reference limit for Creatinine is approximately 13% higher for people identified as -Niuean. EGFR 77 > OR = 60 mL/min/1 .73m2 [facility] GFR () 90 > OR = 60 mL/min/1 .73m2 [facility] BUN/Creatinine Ratio NOT APPLICABLE 6 - 22 (calc) [facility] Sodium 140 135 - 146 mmol/L [facility] Potassium 3.6 3.5 - 5.3 mmol/L [facility] Chloride 105 98 - 110 mmol/L [facility] Carbon dioxide 25 20 - 32 mmol/L [facility] Calcium 9.1 8.6 - 10.4 mg/dL [facility] Protein Total (Serum) 5.9(L) 6.1 - 8.1 g/dL [facility] Albumin 3.3(L) 3.6 - 5.1 g/dL [facility] Globulin 2.6 1.9 - 3.7 g/dL (calc) [facility] Albumin/Globulin 1.3 1.0 - 2.5 (calc) [facility] Bilirubin Total 0.3 0.2 - 1.2 mg/dL [facility] Alkaline phosphatase 56 33 - 130 U/L [facility] AST (SGOT) 20 10 - 35 U/L [facility] ALT (SGPT) 23 6 - 29 U/L [facility] 09/30/2018 11:3 8 AM EDT 09/30/2018 9:04 PM EDT Narrative [facility] - 10/01/2018 2:57 AM EDT Please note that this estimated [...] needs for GFR calculation. Resulting Agency Comment [id number] Melanie Aguirre MD LABORATORY Final Result Performing Organization Address [facility] de Phone Number [facility] [address] [place] [address] * (ABNORMAL) CYCLIC CITRULLINATEDPEPTIDE CCP AB IGG (09/30/2018 11:38 AM EDT) Pathologist [facility] CCP Ab, IgG 45(H) UNITS [facility] Comment: Reference Range Negative: ?<20 Weak Positive: ? 20-39 Moderate Positive: ?? 40-59 Strong Positive: ? >59 09/30/2018 11:3 8 AM EDT 09/30/2018 9:04 PM EDT Narrative Resulting Agency Comment [id number] Melanie Aguirre MD LABORATORY Final Result Performing Organization Address [facility] de Phone Number [facility] [address] [place] [address] * (ABNORMAL) CBC INCLUDES DIFFERENTIAL AND PLATELET COUNT (09/30/2018 11:38 AM EDT) Pathologist [facility] WBC 7.4 3.8 - 10.8 Thousand/u L [facility] RBC 4.64 3.80 - 5.10 Million/uL [facility] Hemoglobin 12.4 11.7 - 15.5 g/dL [facility] Hematocrit 39.3 35.0 - 45.0 % [facility] MCV 84.7 80.0 - 100.0 fL [facility] MCH 26.7(L) 27.0 - 33.0 pg [facility] MCHC 31.6(L) 32.0 - 36.0 g/dL [facility] RDW 14.7 11.0 - 15.0 % [facility] PLT 257 140 - 400 Thousand/u L [facility] MPV 10.0 7.5 - 12.5 fL [facility] Neutrophils # 6327 1500 - 7800 cells/uL [facility] Lymphocytes # 673(L) 850 - 3900 cells/uL [facility] Monocytes # 385 200 - 950 cells/uL [facility] Eosinophils # 7(L) 15 - 500 cells/uL [facility] Basophils # 7 0 - 200 cells/uL [facility] Neutrophils % 85.5 % [facility] Lymphocytes % 9.1 % [facility] Monocytes % 5.2 % [facility] Eosinophils % 0.1 % [facility] Basophils % 0.1 % [facility] 09/30/2018 11:3 8 AM EDT 09/30/2018 9:04 PM EDT Narrative Resulting Agency Comment [id number] Melanie Aguirre MD LAB SAME DAY RESULT Final Result Performing Organization Address [facility]/ZIP Co de Phone Number [facility] [address] [place] [address] * SM/PHYSICAL THER ANTIBODY (09/30/2018 11:38 AM EDT) Arevalo extractable nuclear Ab+Ribonucleopr otein extractable nuclear Ab <1.0 NEG <1.0 NEG AI [facility] 09/30/2018 11:3 8 AM EDT 09/30/2018 9:04 PM EDT Narrative Resulting Agency Comment [id number] Melanie Aguirre MD LABORATORY Final Result Performing Organization Address [facility] de Phone Number [facility] [address] [place] [address] * DNA (DS) ANTIBODY (09/30/2018 11:38 AM EDT) Dna (DS) Antibody <1 IU/mL [facility] Comment: ? IU/mL ? Interpretation ? < or = 4 ?Negative ? 5-9 ? Indeterminate ? > or = 10 ?? Positive 09/30/2018 11:3 8 AM EDT 09/30/2018 9:04 PM EDT Narrative Resulting Agency Comment [id number] Melanie Aguirre MD LABORATORY Final Result Performing Organization Address [facility] Co de Phone Number [facility] [address] [place] [address] * PASTORA IFA, W/ REFLEX TO TITER/PATTERN/COMPREHENSIVE AB PANEL (09/30/2018 11:38 AM EDT) PASTORA IFA NEGATIVE NEGATIVE [facility] Comment: PASTORA IFA is a first line screen for detecting the presence of up to approximately 150 autoantibodies in various autoimmune diseases. A negative PASTORA IFA result suggests PASTORA-associated autoimmune diseases are not present at this time. Visit Physician FAQs for interpretation of all antibodies in the [place], prevalence, and association with diseases at http://education.Medsphere Systems/ faq/JKT640 09/30/2018 11:3 8 AM EDT 09/30/2018 9:04 PM EDT Narrative Resulting Agency Comment [id number] Melanie Aguirre MD LABORATORY Final Result Performing Organization Address [facility] Co de Phone Number [facility] [address] [place] [address] documented in this encounter Visit Diagnoses Diagnosis Rheumatoid arthritis involving multiple sites with positive rheumatoid factor (HCC) documented in this encounter Care Teams Data Warehouse Consultant Relationship Specialty Start Date End Date Cheryl Calderon MD [facility] Medicine [address] [place] [id number] PCP - General Internal Medicine 07/17/17 documented as of this encounter
--- OUTSIDE RECORDS SUMMARY | 2024-06-26 09:30 | XMS_ITS | Encounter Summary ---
Author Organization [facility] Address [address] [place] [address] Care Team Providers Care Ballistics Laboratory Gunsmith Name Role Phone Charly Saxena Primary Care Provider [phone] Cheryl Calderon MD Primary Care Provider [phone] Reason for Visit * Reason Comments E-prescribing Refill Request Encounter Details Date Type Department Care Team ([facility] st Contact Info) Description 03/18/2017 Refill [facility] Rheumatology [address] [place] [phone] Abel Fierro MD [address] [place] [address] E-prescribing Refill Request Social History Tobacco Use [...] encounter Miscellaneous Notes * Telephone Encounter - Candace Benavides - 03/26/2017 9:44 AM EST Spoke with Opal She states she has since moved and asked us to send a request for labs to [facility] in [place], [place] Lab request form sent to the lab * Telephone Encounter - Lilly Poe LVN LPN - 03/19/2017 4:33 PM EST Left another message regarding lab work and to call office. * Telephone Encounter - Anival Mcfadden MD - 03/19/2017 4:07 PM EST Monthly labs were recommended at the time the medication was started in December. The patient has had labs only once since that time. Please inform the patient that she should get labs. I will let the renewal on the prescription waituntil tomorrow when Dr. Fierro is available. * Telephone Encounter - Marleny Rangel LVN LPN - 03/18/2017 11:03 AM EST Left message for patient due for lab work. Any special requests or concerns? none Faxed/E-prescribed medication renewal request(s) for Opal Juares 62 y.o. female received from pharmacy. Verified and Confirmed pharmacy for patient. Last CPE with this specialty: Not Found Last OV with this specialty: 12/28/2016 Laboratory and radiology studies: Rheumatoid arthritis, seropositive, erosive. Patient not had a long discussion about options and after discussion we opted to put in a prior authorization request for tofacitinib (Xeljanz). Risks andbenefits were discussed. Assuming she gets that, we will plan on monthly CBC and AST, ALT, creatinine and see her in 2 to 3 months to reevaluate. Impression: As above. Plan: As above. Next OV: Future Appointments Date Time Provider Department Phone 04/18/17 1:30 PM Abel Fierro MD [facility] Rheumatology [phone] 07/15/17 1:00 PM Abel Fierro MD [facility] Rheumatology [phone] Pertinent lab results: No labs suggested for any medication orders signed or pended in this encounter. Refresh if any orders changed. Allergies: Acetaminophen-codeine; Gold; Opioid analgesics; and Sulfa antibiotics BP Readings from Last 1 Encounters: 12/28/16 (!) 149/85 Patient Active Problem List Diagnosis Date Noted ??? Elbow pain 06/03/2012 ??? Rheumatoid arthritis(714.0) ([facility]) 09/29/2010 Followed by rheumatology treated with methotrexate, leflunomide, adalimumab and prednisone. Current Outpatient Prescriptions on File Prior to Visit Medication Sig Dispense Refill ??? PredniSONE 10 MG Tab TAKE 2 TABLETS EVERY DAY OR DIRECTED 60 Tab 5 ??? Leflunomide 20 MG Tab TAKE 1 TABLET BY MOUTH DAILY 90 Tab 1 ??? Tofacitinib Citrate (XELJANZ) 5 MG Tab 1 TABLET TWICE DAILY 60 Tab 2 ??? Lisinopril 5 MG Tab 1 TABLET DAILY ??? Levothyroxine Sodium 50 MCG Tab TAKE 1 TABLET EVERY MORNING ON AN EMPTY STOMACH 6 ??? Metoprolol Tartrate 25 MG Tab TAKE 1 TABLET BY MOUTH EVERY DAY 0 ??? Nystatin (NYSTOP) 844441 UNIT/GM Powder APPLY TO BUTTOCKS THREE TIMES DAILY NEEDED 0 ??? Potassium Chloride Stephanie CR (KLOR-CON M20) 20 MEQ Tab CR TAKE 2 TABLETS BY MOUTH TWICE A DAY -INCREASE 3 ??? Warfarin Sodium 2.5 MG Tab 450MG DAILY ??? PredniSONE 5 MG Tab TAKE 1 TABLET BY MOUTH DAILY OR DIRECTED 60 Tab 3 ??? BuPROPion HCl 150 MG TABLET SR 24 HR 1 TABLET DAILY ??? FLUoxetine HCl 40 MG Cap 2 capsules daily (80 mg) ??? Methimazole 5 MG Tab 1/2 (2.5 mg) TABLET DAILY ??? Zolpidem Tartrate (AMBIEN) 10 MG Tab 1 TABLET AT BEDTIME ??? Solifenacin Succinate (VESICARE) 10 MG Tab 1 TABLET DAILY ??? Omeprazole 20 MG CAPSULE DELAYED RELEASE 2 CAPSULES DAILY ??? FOLIC ACID 800 MCG OR [...] TABS (500 mg tab) 2 TABLETs DAILY ??? HYDROCHLOROTHIAZIDE 25 MG OR TABS 1 TABLET DAILY documented in this encounter Plan of Treatment Not on file documented as of this encounter Visit Diagnoses Not on filedocumented in this encounter Care Teams Ballistics Laboratory Gunsmith Relationship Specialty Start Date End Date Charly Saxena [facility] [address] [place] [address] PCP - General Internal Medicine 05/25/13 07/16/17 Cheryl Calderon MD [facility] Medicine [address] [place] [address] PCP - General Internal Medicine 07/17/17 documented as of this encounter
--- OUTSIDE RECORDS SUMMARY | 2024-06-26 09:30 | XMS_ITS | Encounter Summary ---
Author Organization [facility] Address [phone] [facility] [place] [address] Care Team Providers Care Department Mgr Name Role Phone JessicaIta oliveira [facility] Primary Care Provider Cash Fernadnes MD Unavailable [phone] Seven Menchaca MD Unavailable Chavo Jack MD Primary Care Provider Keren Poon [facility] Primary Care Provid er Chavo Jack MD Unavailable Willi Wells MD Unavailable Jose Thakur MD Unavailable Dana Rucker SPARERIBS TRIMMER Unavailable [phone] Jonathan Alvarez MD Unavailable [phone] Anival Borja MD Unavailable [phone] Lyndsay Reynoso SPARERIBS TRIMMER Unavailable [phone] Gutierrez Pittman MD Unavailable [phone] Encounter Details Date Type Department Care Team (Late st Contact Info) Description 07/10/2021 Procedure Pass [facility], [facility] [address] [place] [address] Social History Tobacco Use Types Packs/Day Years [...] high school, GED, job training, learning the Portuguese language, technical skills, or developing parenting skills)? [...] 10:48 PM EDT Sexual Orientation Straight 09/27/2020 4 :02 PM EDT documented as of this encounter Plan of Treatment Upcoming Encounters Date Type Department Care Team (Pina st Contact Info) Description 06/06/2024 Procedure Pass [facility], [facility] [address] [address] 06/26/2024 2:00 PM EST Home [facility] [address] [place] [phone] Miya Monte, INSPECTOR TOOL [address] [place] [address] [email or web address] 06/30/2024 1:15 PM EST Home Care Visit [facility] [address] [place] [phone] Miya Monte, INSPECTOR TOOL [address] [place] [address] [email or web address] 07/01/2024 2:30 PM EST Office Visit [facility] [address] [place] [address] Jose Thakur MD [address] [place] [address] [email or web address] 07/02/2024 2:15 AM EST Home Care Visit [facility] [address] [place] [address] Miya Monte, INSPECTOR TOOL [address] [place] [address] [email or web address] 07/07/2024 3:00 AM EDT Home Care Visit [facility] [address] [place] [phone] Miya Monte, INSPECTOR TOOL [address] [place] [address] [email or web address] 07/09/2024 12:45 AM EDT Home Care Visit [facility] [address] [place] [phone] Merly Matos, PT [address] [place] [address] 07/30/2024 3:30 PM EDT Office Visit [address] [place], [place] [address] Keren Poon, ORI [address] [address] 09/18/2024 2:30 PM EDT Office Visit [facility] Infectious Diseases [address] [place] [address] Dana Rucker, DIVYA [address] [address] 11/26/2024 3:30 PM EDT Office Visit [address] [place] [address] Keren Poon, ORI [address] [address] 12/11/2024 2:00 PM EDT Appointment [address] [address] Keren Poon, ORI [address] [address] 06/03/2025 2:00 PM EST Office Visit [address] [place], [place] [address] Keren Poon, ORI [address] [address] documented as of this encounter Visit Diagnoses [...] documented as of this encounter Care Teams Department Mgr Relationship Specialty Start Date End Date Ita Pineda CNP [address] [place] [address] [email or web address] PCP - General Internal Medicine 08/19/20 09/17/22 Chavo Jack MD [address] [place] [address] [email or web address] PCP - General Internal Medicine 09/18/22 01/30/23 Keren Poon CNP [address] [place] [address], 2nd [place] [address] [email or web address] PCP - General Family Medicine 01/31/23 Cash Fernandes MD [address] [place] [address] Gastroenterology 08/23/20 Seven Menchaca MD [address] [place] [address] Insurance Assigned Provider 08/04/22 08/03/23 Chavo Jack MD [address] [place] [address] [email or web address] Insurance Assigned Provider 08/03/23 05/04/24 Willi Wells MD [address] [address] Rheumatology 02/04/24 Jose Thakur MD [address] [place] [address] Lavatory Attendant Pulmonary Disease 03/17/24 Dana Rucker FNP [address] [facility] [place], 2nd [place] [address] [email or web address] Nurse Practitioner Infectious Diseases 05/21/24 Jonathan Alvarez MD [address] [place] [address], [address] [place] [address] Urology 05/14/23 Anival Borja MD [address] [place] [address], [address] [place] [address] Neurologist Neurology 01/04/23 Lyndsay Reynoso FNP [address] [place] [address] [email or web address] Practitioner Pain Medicine 05/27/22 Gutierrez Pittman MD [address] [place] [address] Workforce Development Vice President Cardiology 05/27/24 documented as of this encounter Additional Source Comments The information contained in this document represents components of the legal health record. It is not the complete legal health record.[facility]
--- OUTSIDE RECORDS SUMMARY | 2024-06-26 09:30 | XMS_ITS | Encounter Summary ---
Author Organization [facility] Address [address] [place] [address] Care Team Providers Care Oracle Solutions Architect Name Role Phone Charly Saxena Primary Care Provider [phone] Cheryl Calderon MD Primary Care Provider [phone] Encounter Details Date Type Department Care Team (Late st Contact Info) Description 12/28/2016 [facility] [address] [place] [address] Abel Fierro MD [address] [place] [address] Social History Tobacco Use Types Packs/Day Years [...] of this encounter Procedures * Due to [place] state law, this organization might not be sharing negative HIV tests. Procedure Name Priority Date/Time Associated Diagnosis Comments C-REACTIVE PROTEIN (CRP) - INFLAMMATION Routine 12/28/2016 3:13 PM EDT Rheumatoid arthritis involving multiple sites with positive rheumatoid factor (HCC) ERYTHROCYTE SEDIMENTATION RATE (ESR) Routine 12/28/2016 3:13 PM EDT Rheumatoid arthritis involving multiple sites with positive rheumatoid factor (HCC) CBC INCLUDES DIFFERENTIAL AND PLATELET COUNT Routine 12/28/2016 3:13 PM EDT Rheumatoid arthritis involving multiple sites with positive rheumatoid factor (HCC) ALANINE AMINOTRANSFERASE (ALT), SERUM Routine 12/28/2016 3:13 PM EDT Rheumatoid arthritis involving multiple sites with positive rheumatoid factor (HCC) ASPARTATE AMINOTRANSFERASE (AST), SERUM Routine 12/28/2016 3:13 PM EDT Rheumatoid arthritis involving multiple sites with positive rheumatoid factor (HCC) BASIC METABOLIC PANEL WITH (GFR) Routine 12/28/2016 3:13 PM EDT Rheumatoid arthritis involving multiple sites with positive rheumatoid factor (HCC) documented in this encounter Results * Due to [place] state law, this organization might not be sharing negative HIV tests. * (ABNORMAL) ASPARTATE AMINOTRANSFERASE (AST), SERUM (12/28/2016 3:13 PM EDT) AST (SGOT) 36(H) 10 - 35 U/L [facility] 12/28/2016 3:13 PM EDT 12/28/2016 8:27 PM EDT Narrative Resulting Agency Comment [id number] us Abel Fierro MD LAB SAME DAY RESULT Final Resul t [facility] [address] [place] [address] * ALANINE AMINOTRANSFERASE (ALT), SERUM (12/28/2016 3:13 PM EDT) ALT (SGPT) 29 6 - 29 U/L [facility] 12/28/2016 3:13 PM EDT 12/28/2016 8:27 PM EDT Narrative Resulting Agency Comment [id number] us Abel Fierro MD LAB SAME DAY RESULT Final Resul t [facility] [address] [place] [address] * C-REACTIVE PROTEIN (CRP) - INFLAMMATION (12/28/2016 3:13 PM EDT) C reactive protein 0.24 <0.80 mg/dL [facility] Comment: Please be advised that patients taking Carboxypenicillins may exhibit falsely decreased C-Reactive Protein levels due to an analytical interference in this assay. 12/28/2016 3:13 PM EDT 12/28/2016 8:27 PM EDT Narrative Resulting Agency Comment [id number] Abel Fierro MD LABORATORY Final Result Performing Organization Address [facility] Co de Phone Number [facility] [address] [place] [address] * ERYTHROCYTE SEDIMENTATION RATE (ESR), WESTERGREN (12/28/2016 3:13 PM EDT) Sedimentation Rate [place] (ESR) 6 < OR = 30 mm/h [facility] 12/28/2016 3:13 PM EDT 12/28/2016 8:27 PM EDT Narrative Resulting Agency Comment [id number] Abel Fierro MD LAB SAME DAY RESULT Final Resul t Performing Organization Address [facility] Co de Phone Number [facility] [address] [place] [address] * (ABNORMAL) BASIC METABOLIC PANEL WITH (GFR) (12/28/2016 3:13 PM EDT) Glucose 105(H) 65 - 99 mg/dL [facility] Comment: ? Fasting reference interval For someone without known diabetes, a glucose value between 100 and 125 mg/dL is consistent with prediabetes and should be confirmed with a follow-up test. Urea Nitrogen Blood (BUN) 9 7 - 25 mg/dL [facility] Creatinine 0.82 0.50 - 0.99 mg/dL [facility] Comment: For patients >49 years of age, the reference limit for Creatinine is approximately 13% higher for people identified as -[place] Verdean. GFR 77 > OR = 60 mL/min/1 .73m2 [facility] GFR () 90 > OR = 60 mL/min/1 .73m2 [facility] BUN/Creatinine Ratio NOT APPLICABLE (calc) [facility] Sodium 149(H) 135 - 146 mmol/L [facility] Potassium 3.9 3.5 - 5.3 mmol/L [facility] Chloride 108 98 - 110 mmol/L [facility] Carbon dioxide 20 20 - 31 mmol/L [facility] Calcium 9.7 8.6 - 10.4 mg/dL [facility] 12/28/2016 3:13 PM EDT 12/28/2016 8:27 PM EDT Narrative [facility] - 12/29/2016 2:02 PM EDT Please note that this estimated [...] needs for GFR calculation. Resulting Agency Comment [id number] us Abel Fierro MD LABORATORY Final Result Performing Organization Address City/State/[facility] Co de Phone Number [facility] [address] [place] [address] * (ABNORMAL) CBC INCLUDES DIFFERENTIAL AND PLATELET COUNT (12/28/2016 3:13 PM EDT) WBC 7.1 3.8 - 10.8 Thousand/u L [facility] RBC 5.48(H) 3.80 - 5.10 Million/uL [facility] Hemoglobin 15.4 11.7 - 15.5 g/dL [facility] Hematocrit 48.1(H) 35.0 - 45.0 % [facility] MCV 87.8 80.0 - 100.0 fL [facility] MCH 28.0 27.0 - 33.0 pg [facility] MCHC 31.9(L) 32.0 - 36.0 g/dL [facility] RDW 14.2 11.0 - 15.0 % [facility] PLT 291 140 - 400 Thousand/u L [facility] MPV 7.8 7.5 - 12.5 fL [facility] Neutrophils # 5779 1500 - 7800 cells/uL [facility] Lymphocytes # 809(L) 850 - 3900 cells/uL [facility] Monocytes # 391 200 - 950 cells/uL [facility] Eosinophils # 71 15 - 500 cells/uL [facility] Basophils # 50 0 - 200 cells/uL [facility] Neutrophils % 81.4 % [facility] Lymphocytes % 11.4 % [facility] Monocytes % 5.5 % [facility] Eosinophils % 1.0 % [facility] Basophils % 0.7 % [facility] 12/28/2016 3:13 PM EDT 12/28/2016 8:27 PM EDT Narrative Resulting Agency Comment [id number] us Abel Fierro MD LAB SAME DAY RESULT Final Resul t Performing Organization Address City/State/[facility] Co de Phone Number [facility] [address] [place] [address] documented in this encounter Visit Diagnoses Diagnosis Rheumatoid arthritis involving multiple sites with positive rheumatoid factor (HCC) documented in this encounter Care Teams Oracle Solutions Architect Relationship Specialty Start Date End Date Charly Saxena [facility] [address] [place] [address] PCP - General Internal Medicine 05/25/13 07/16/17 Cheryl Calderon MD [facility] Medicine [address] [place] [address] PCP - General Internal Medicine 07/17/17 documented as of this encounter
--- OUTSIDE RECORDS SUMMARY | 2024-06-26 09:30 | XMS_ITS | Encounter Summary ---
Author Organization [facility] Address [address] [place] [address] Care Team Providers Care Outside Contractor Sales Name Role Phone Cheryl Calderon MD Primary Care Provider [phone] Reason for Visit * Reason Comments E-prescribing Refill Request Encounter Details Date Type Department Care Team (Late st Contact Info) Description 09/19/2017 Refill [facility] Rheumatology [address] [place] [address] Abel Fierro MD [address] [place] [address] E-prescribing Refill Request Social History Tobacco Use [...] encounter Miscellaneous Notes * Telephone Encounter - Chantelle Persaud RN - 11/01/2017 9:00 AM EDT Left second voicemail for patient to call back to see how much Prednisone she is taking. * Telephone Encounter - Chantelle Persaud RN - 09/19/2017 2:39 PM EDT LEFT VOICEMAIL WITH PATIENT TO SEE HOW MUCH PREDNISONE SHE IS TAKING. Any special requests or concerns? none Faxed/E-prescribed medication renewal request(s) for Opal Juares 62 y.o. female received from pharmacy. Verified and Confirmed pharmacy for patient. Last CPE with this specialty: Not Found Last OV with this specialty: 07/15/2017 Next OV: Future Appointments Date Time Provider Department Phone 01/16/18 1:00 PM Abel Fierro MD [facility] Rheumatology [phone] Pertinent lab results: Lab Results Component Value Date ESR 9 04/18/2017 CRP 1.5 04/18/2017 A1C 5.5 11/03/2004 An open order for ESR/CRP does not exist. No guidelines available based on last ESR. Refills at provider discretion. Allergies: Acetaminophen-codeine; Gold; Opioid analgesics; and Sulfa antibiotics BP Readings from Last 1 Encounters: 07/15/17 (!) 146/83 Patient Active Problem List Diagnosis Date Noted ??? Elbow pain 06/03/2012 ??? Rheumatoid arthritis(714.0) ([facility]) 09/29/2010 Followed by rheumatology treated with methotrexate, leflunomide, adalimumab and prednisone. Current Outpatient Prescriptions on File Prior to Visit Medication Sig Dispense Refill ??? Leflunomide 20 MG Tab TAKE 1 TABLET BY MOUTH DAILY 90 Tab 1 ??? PredniSONE 1 MG Tab as directed up to 4 a day 120 Tab 11 ??? Tofacitinib Citrate (XELJANZ) 5 MG Tab TAKE ONE TABLET (5 MG) BY MOUTH TWICE DAILY. MAY BE TAKEN WITH OR WITHOUT FOOD. STORE AT ROOM TEMPERATURE. 60 Tab 5 ??? Metoprolol Succinate 25 MG TABLET SR 24 HR 1 tablet daily ??? PredniSONE 10 MG Tab TAKE 2 TABLETS EVERY DAY OR DIRECTED 60 Tab 5 ??? Lisinopril 5 MG Tab 1 TABLET DAILY ??? Levothyroxine Sodium 50 MCG Tab TAKE 1 TABLET EVERY MORNING ON AN EMPTY STOMACH 6 ??? Nystatin (NYSTOP) 450073 UNIT/GM Powder APPLY TO BUTTOCKS THREE TIMES DAILY NEEDED 0 ??? Potassium Chloride Stephanie CR (KLOR-CON M20) 20 MEQ Tab CR TAKE 2 TABLETS BY MOUTH TWICE A DAY -INCREASE 3 ??? Warfarin Sodium 2.5 MG Tab 450MG DAILY ??? BuPROPion HCl 150 MG TABLET SR [...] on filedocumented in this encounter Care Teams Outside Contractor Sales Relationship Specialty Start Date End Date Cheryl Calderon MD [facility] Adult Medicine [address] [place] [address] PCP - General Internal Medicine 07/17/17 documented as of this encounter
--- OUTSIDE RECORDS SUMMARY | 2024-06-26 09:30 | XMS_ITS | Encounter Summary ---
Author Organization [facility] Address [address] [place] [address] Care Team Providers Care Clutch Assembler Name Role Phone Alberto Pacheco Primary Care Provider [phone] Unknown Pcp, Non [facility] Primary Care Provider Unava ilCharly Antoine Primary Care Provider Charly Saxena Primary Care Provider [phone] Cheryl Calderon MD Primary Care Provider [phone] Encounter Details Date Type Department Care Team (Late st Contact Info) Description 11/15/2006 Orders Only [facility] Rheumatology [address] [place] [address] Abel Fierro MD [address] [place] [address] Social History Tobacco Use Types Packs/Day Years Used Date Smoking Tobacco: Never Assessed Comments Unknown Sex and Gender Information Value Date Recorded Sex Assigned at Not on file Legal Sex Female 8:11 PM EDT Gender Identity Not on file Sexual Orientation Not on file documented as of this encounter Plan of Treatment Not on file documented as of this encounter Visit Diagnoses Diagnosis RHEUMATOID ARTHRITIS- Primary Rheumatoid arthritis documented in this encounter Care Teams Clutch Assembler Relationship Specialty Start Date End Date Alberto Pacheco [address] [place] [address] PCP - General 07/19/08 05/24/13 Unknown Pcp, Non [facility] PCP - General 06/30/08 07/18/08 Charly Saxena [facility] [address] [place] [address] PCP - General 01/18/06 06/29/08 Charly Saxena [facility] [address] [place] [address] PCP - General Internal Medicine 05/25/13 07/16/17 Cheryl Calderon MD [facility] Adult Medicine [address] [place] [address] PCP - General Internal Medicine 07/17/17 documented as of this encounter
--- OUTSIDE RECORDS SUMMARY | 2024-06-26 09:30 | XMS_ITS | Encounter Summary ---
Author Organization [facility] Address [address] [place] [address] Care Team Providers Care Printed Products Assembler Name Role Phone Charly Saxena Primary Care Provider [phone] Cheryl Calderon MD Primary Care Provider [phone] Encounter Details Date Type Department Care Team (Late st Contact Info) Description 05/24/2016 Orders Only [facility] Rheumatology [address] [place] [address] Abel Fierro MD [address] [place] [address] Social History Tobacco Use Types Packs/Day Years [...] CBC INCLUDES DIFFERENTIAL AND PLATELET COUNT Routine 05/24/2016 10:20 AM EST Rheumatoid arthritis involving multiple sites with positive rheumatoid factor (HCC) [M05.79] ALANINE AMINOTRANSFERASE (ALT), SERUM Routine 05/24/2016 10:20 AM EST Rheumatoid arthritis involving multiple sites with positive rheumatoid factor (HCC) [M05.79] ASPARTATE AMINOTRANSFERASE (AST), SERUM Routine 05/24/2016 10:20 AM EST Rheumatoid arthritis involving multiple sites with positive rheumatoid factor (HCC) [M05.79] CREATININE WITH GLOMERULAR FILTRATION RATE, ESTIMATED (EGFR) Routine 05/24/2016 10:20 AM EST Rheumatoid arthritis involving multiple sites with positive rheumatoid factor (HCC) [M05.79] documented in this encounter Results * Due to [place] state law, this organization might not be sharing negative HIV tests. * CREATININE WITH GLOMERULAR FILTRATION RATE, ESTIMATED (EGFR) (05/24/2016 10:20 AM EST) Creatinine 0.93 0.50 - 0.99 mg/dL [facility] Comment: For patients >49 years of age, the reference limit for Creatinine is approximately 13% higher for people identified as -Burkinan. GFR 66 > OR = 60 mL/min/1. 73m2 [facility] GFR () 77 > OR = 60 mL/min/1. 73m2 [facility] 05/24/2016 10:2 0 AM EST 05/24/2016 5:04 PM EST Narrative [facility] - 05/24/2016 7:43 PM EST Please note that this estimated [...] needs for GFR calculation. Resulting Agency Comment [id number] us Abel Fierro MD LAB SAME DAY RESULT Final Resul t [facility] [address] [place] [address] * ALANINE AMINOTRANSFERASE (ALT), SERUM (05/24/2016 10:20 AM EST) ALT (SGPT) 27 6 - 29 U/L [facility] 05/24/2016 10:2 0 AM EST 05/24/2016 5:04 PM EST Narrative Resulting Agency Comment [id number] us Abel Fierro MD LAB SAME DAY RESULT Final Resul t Performing Organization Address City/[facility]/ZIP Co de Phone Number [facility] [address] [place] [address] * ASPARTATE AMINOTRANSFERASE (AST), SERUM (05/24/2016 10:20 AM EST) AST (SGOT) 23 10 - 35 U/L [facility] 05/24/2016 10:2 0 AM EST 05/24/2016 5:04 PM EST Narrative Resulting Agency Comment [id number] us Abel Fierro MD LAB SAME DAY RESULT Final Resul t Performing Organization Address [facility] de Phone Number [facility] [address] [place] [address] * (ABNORMAL) CBC INCLUDES DIFFERENTIAL AND PLATELET COUNT (05/24/2016 10:20 AM EST) WBC 8.9 3.8 - 10.8 Thousand/u L [facility] RBC 5.72(H) 3.80 - 5.10 Million/uL [facility] Hemoglobin 15.6(H) 11.7 - 15.5 g/dL [facility] Hematocrit 49.0(H) 35.0 - 45.0 % [facility] MCV 85.6 80.0 - 100.0 fL [facility] MCH 27.3 27.0 - 33.0 pg [facility] MCHC 31.9(L) 32.0 - 36.0 g/dL [facility] RDW 16.2(H) 11.0 - 15.0 % [facility] PLT 305 140 - 400 Thousand/u L [facility] MPV 8.0 7.5 - 12.5 fL [facility] Neutrophils # 5456 1500 - 7800 cells/uL [facility] Lymphocytes # 2323 850 - 3900 cells/uL [facility] Monocytes # 863 200 - 950 cells/uL [facility] Eosinophils # 205 15 - 500 cells/uL [facility] Basophils # 53 0 - 200 cells/uL [facility] Neutrophils % 61.3 % [facility] Lymphocytes % 26.1 % [facility] Monocytes % 9.7 % [facility] Eosinophils % 2.3 % [facility] Basophils % 0.6 % [facility] 05/24/2016 10:2 0 AM EST 05/24/2016 5:04 PM EST Narrative Resulting Agency Comment [id number] us Abel Fierro MD LAB SAME DAY RESULT Final Resul t Performing Organization Address City/State/[facility] Co de Phone Number [facility] [address] [place] [address] documented in this encounter Visit Diagnoses Diagnosis Rheumatoid arthritis involving multiple sites with positive rheumatoid factor (HCC) [M05.79] documented in this encounter Care Teams Printed Products Assembler Relationship Specialty Start Date End Date Charly Saxena [facility] [address] [place] [address] PCP - General Internal Medicine 05/25/13 07/16/17 Cheryl Calderon MD [facility] Adult Medicine [address] [place] [address] PCP - General Internal Medicine 07/17/17 documented as of this encounter
--- OUTSIDE RECORDS SUMMARY | 2024-06-26 09:30 | XMS_ITS | Encounter Summary ---
Author Organization [facility] Address [phone] [facility] [place] [address] Care Team Providers Care Fuse Coiler Name Role Phone Cash Fernandes MD Unavailable [phone] Seven Menchaca MD Unavailable [phone] Chavo Jack MD Primary Care Provider Keren Poon [facility] Primary Care Provid er Chavo Jack MD Unavailable Willi Wells MD Unavailable Jose Thakur MD Unavailable Dana Rucker CHIEF BUSINESS OFFICER Unavailable Jonathan Alvarez MD Unavailable [phone] Anival Borja MD Unavailable Lyndsay Reynoso CHIEF BUSINESS OFFICER Unavailable [phone] Gutierrez Pittman MD Unavailable [phone] Encounter Details Date Type Department Care Team (Late st Contact Info) Description 10/04/2022 Procedure Pass [facility], [address] [place] [address] Social History Tobacco Use Types Packs/Day Years [...] st Contact Info) Description 06/06/2024 Procedure Pass [facility], [facility]- [address] [address] 06/26/2024 2:00 PM EST Home Care Visit [facility] [address] [place] [phone] Miya Monte, [address] [address] [email or web address] 06/30/2024 1:15 PM EST [facility] [address] [place] [phone] Miya Monte, [address] [address] [email or web address] 07/01/2024 2:30 PM EST Office Visit [facility] [address] [place] [address] Jose Thakur MD [address] [place] [address] [email or web address] 07/02/2024 2:15 AM EST [facility] [address] [place] [address] Miya Monte, [address] [address] [email or web address] 07/07/2024 3:00 AM EDT [facility] [address] [place] [phone] Miya Monte, [address] [address] [email or web address] 07/09/2024 12:45 AM EDT Home Care Visit [facility] [address] [place] [address] Merly Matos, PT [address] [place] [address] 07/30/2024 3:30 PM EDT Office Visit [address] [place], [place] [address] Keren Poon, ORI [address] [address] 09/18/2024 2:30 PM EDT Office Visit [facility] Infectious Diseases [address] [place] [address] Dana Rucker, CHIEF BUSINESS OFFICER [address] [address] 11/26/2024 3:30 PM EDT Office Visit [address] [place], [place] [address] Keren Poon, ORI [address] [place] [address] 12/11/2024 2:00 PM EDT Appointment [facility] [address] [place] [address] Keren Poon, ORI [address] [address] 06/03/2025 2:00 PM EST Office Visit [address] [place], [place] [address] Keren Poon, ORI [address] [address] [email or web address] documented as of this encounter Visit [...] documented as of this encounter Care Teams Fuse Coiler Relationship Specialty Start Date End Date Chavo Jack MD [address] [place] [address] [email or web address] PCP - General Internal Medicine 09/18/22 01/30/23 Keren Poon CNP [address] [place] [address], 2nd [place] [address] [email or web address] PCP - General Family Medicine 01/31/23 Cash Fernandes MD [address] [place] [address] [email or web address] Gastroenterology 08/23/20 Seven Menchaca MD [address] [place] [address] [email or web address] Insurance Assigned Provider 08/04/22 08/03/23 Chavo Jack MD [address] [place] [address] [email or web address] Insurance Assigned Provider 08/03/23 05/04/24 Willi Wells MD [address] Vinayak 304_[place] [address] Rheumatology 02/04/24 Jose Thakur MD [address] [place] [address] [employer] Pulmonary Disease 03/17/24 Dana Rucker FNP 15 [facility], 2nd [place] [address] [email or web address] Nurse Practitioner Infectious Diseases 05/21/24 Jonathan Alvarez MD [address] [place] [address], [address] [place] [address] [email or web address] Urology 05/14/23 Anival Borja MD [address] [place] [address], [address] [place] [address] Neurologist Neurology 01/04/23 Lyndsay Reynoso FNP [address] [place] [address] [email or web address] Nurse Practitioner Pain Medicine 05/27/22 Gutierrez Pittman MD [address] [place] [address] Proof Carrier Cardiology 05/27/24 documented as of this encounter Additional Source Comments The information contained in this document represents components of the legal health record. It is not the complete legal health record.[facility]
--- OUTSIDE RECORDS SUMMARY | 2024-06-26 09:30 | XMS_ITS | Encounter Summary ---
Author Organization [facility] Address [phone] [facility] [email or web address] [address] Care Team Providers Care Account Assistant Name Role Phone JessicaIta oliveira [facility] Primary Care Provider Cash Fernandes MD Unavailable [phone] Seven Menchaca MD Unavailable [phone] Chavo Jack MD Primary Care Provider Keren Poon [facility] Primary Care Provid er Chavo Jack MD Unavailable Willi Wells MD Unavailable Jose Thakur MD Unavailable Dana Rucker HVAC COMMERCIAL SALESPERSON Unavailable Jonathan Alvarez MD Unavailable [phone] Anival Borja MD Unavailable [phone] Lyndsay Reynoso HVAC COMMERCIAL SALESPERSON Unavailable Gutierrez Pittman MD Unavailable [phone] Encounter Details Date Type Department Care Team (Late st Contact Info) Description 04/10/2021 Procedure Pass [facility] Endoscopy Admitting Dept Virtual Department [address] [place] [address] Social History Tobacco Use Types Packs/Day Years [...] high school, GED, job training, learning the Hebrew language, technical skills, or developing parenting skills)? [...] st Contact Info) Description 06/06/2024 Procedure Pass [facility], [facility]- [address] [address] 06/26/2024 2:00 PM EST Home Care Visit [facility] [address] [place] [phone] Miya Monte, [facility] [address] [place] [address] 06/30/2024 1:15 PM EST Home Care Visit [facility] [address] [place] [phone] Miya Monte, [facility] [address] [place] [address] 07/01/2024 2:30 PM EST Office Visit [facility] [address] [place] [address] Jose Thakur MD [address] [place] [address] 07/02/2024 2:15 AM EST Home Care Visit [facility] [address] [place] [address] Miya Monte, [address] [address] 07/07/2024 3:00 AM EDT Home Care Visit [facility] [address] [place] [phone] Miya Monte, [facility] [address] [place] [address] 07/09/2024 12:45 AM EDT Home Care Visit [facility] [address] [place] [phone] Merly Matos, PT [address] [place] [address] 07/30/2024 3:30 PM EDT Office Visit [address] [place] [address] Keren Poon, ORI [address] [address] 09/18/2024 2:30 PM EDT Office Visit [facility] Infectious Diseases 22 [place] [address] Dana Rucker, HVAC COMMERCIAL SALESPERSON [address] [address] 11/26/2024 3:30 PM EDT Office Visit [address] [place] [address] Keren Poon, ORI [address] [address] 12/11/2024 2:00 PM EDT Appointment [facility] [address] [place] [address] Keren Poon, ORI [address] [address] 06/03/2025 2:00 PM EST Office Visit [address] [place] [address] Keren Poon, ORI [address] [address] documented as of this encounter Visit Diagnoses [...] as of this encounter Care Teams Account Assistant Relationship Specialty Start Date End Date Ita Pineda CNP [address] [place] [address] [email or web address] PCP - General Internal Medicine 08/19/20 09/17/22 Chavo Jack MD [address] [place] [address] [email or web address] PCP - General Internal Medicine 09/18/22 01/30/23 Keren Poon CNP [address] [place] [address], 2nd [place] [address] [email or web address] PCP - General Family Medicine 01/31/23 Cash Fernandes MD [address] [place] [address] Gastroenterology 08/23/20 Seven Menchaca MD [address] [place] [address] [email or web address] Insurance Assigned Provider 08/04/22 08/03/23 Chavo Jack MD [address] [place] [address] [email or web address] Insurance Assigned Provider 08/03/23 05/04/24 Willi Wells MD [address] Vinayak 304_[place] [address] Rheumatology 02/04/24 Jose Thakur MD 30 [place] [address] Topology Teacher Pulmonary Disease 03/17/24 Dana Rucker FNP 15 [facility], 2nd [place] [address] [email or web address] Nurse Practitioner Infectious Diseases 05/21/24 Jonathan Alvarez MD [address] [place] [address], [address] [place] [address] Urology 05/14/23 Anival Borja MD [address] [place] [address], [address] [place] [address] Neurologist Neurology 01/04/23 Lyndsay Reynoso FNP [address] [place] [address] [email or web address] Nurse Practitioner Pain Medicine 05/27/22 Gutierrez Pittman MD [address] [place] [address] Senior Energy Market Coordinator Cardiology 05/27/24 documented as of this encounter Additional Source Comments The information contained in this document represents components of the legal health record. It is not the complete legal health record.[facility]
--- OUTSIDE RECORDS SUMMARY | 2024-06-26 09:30 | XMS_ITS | Encounter Summary ---
Author Organization [facility] Address [address] [place] [address] Care Team Providers Care Manager Of Customer Billing Name Role Phone Alberto Pacheco Primary Care Provider [phone] Charly Saxena Primary Care Provider [phone] Cheryl Calderon MD Primary Care Provider [phone] Encounter Details Date Type Department Care Team (Late st Contact Info) Description 03/31/2009 Orders Only [facility] Rheumatology [address] [place] [address] Abel Fierro MD [address] [place] [address] Social History Tobacco Use Types Packs/Day Years [...] of this encounter Procedures * Due to [place] state law, this organization might not be sharing negative HIV tests. Procedure Name Priority Date/Time Associated Diagnosis Comments CREATININE WITH GLOMERULAR FILTRATION RATE, ESTIMATED (EGFR) Routine 03/31/2009 Rheumatoid Arthritis (HCC) CBC 5 PART DIFF Routine 03/31/2009 Rheumatoid Arthritis (HCC) ALANINE AMINOTRANSFERASE (ALT), SERUM Routine 03/31/2009 Rheumatoid Arthritis (HCC) ASPARTATE AMINOTRANSFERASE (AST), SERUM Routine 03/31/2009 Rheumatoid Arthritis (HCC) documented in this encounter Results * Due to [place] state law, this organization might not be sharing negative HIV tests. * CREATININE WITH GLOMERULAR FILTRATION RATE, ESTIMATED (EGFR) (03/31/2009) CREATININE 0.61 0.60 - 1.10 MG/DL [facility] GFR > 60 60 AND ABOVE [facility] Comment:UNITS: ML/MIN/1.73 S Q METERS EGFR > 60 60 AND ABOVE [facility] Comment:UNITS: ML/MIN/1.73 S Q METERS 03/31/2009 04/01/2009 12: 36 AM EST Narrative [facility] - 04/01/2009 5:29 AM EST Please note that this estimated [...] with more precise needs for GFR calculation. Report Comments: RBC'S PRESENT, CHEMISTRY RESULT(S) MAY BE AFFECTED us Abel Fierro MD LAB SAME DAY RESULT Final Resul t Performing Organization Address City/State/[facility] Co de Phone Number [facility] [address] [place] [address] * (ABNORMAL) CBC 5 PART DIFF (03/31/2009) WHITE BLOOD COUNT 4.6 3.8 - 10.8 THOUS/UL [facility] RBC 4.77 3.80 - 5.10 MIL/UL [facility] Hemoglobin 13.6 11.7 - 15.5 G/DL [facility] HCT (HEMATOCRIT) 40.8 35.0 - 45.0 % [facility] MCV 85.5 80.0 - 100.0 FL [facility] MCH 28.5 27.0 - 33.0 PG [facility] MCHC 33.3 32.0 - 36.0 G/DL [facility] BAND % 0 0 - 5 % [facility] NEUTROPHIL % 41(L) 48 - 75 % [facility] LYMPHOCYTE % 40 17 - 40 % [facility] MONOCYTE % 14 0 - 14 % [facility] EOSINOPHIL % 3 0 - 5 % [facility] BASOPHIL % 2 0 - 3 % [facility] ATYPICAL LYMPHOCYTE % 0 0 - 5 % [facility] PLATELETS 309 140 - 400 THOUS/UL [facility] BANDS # 0 0 - 750 CELLS/MCL [facility] NEUTROPHILS # 1886 1500 - 7800 CELLS/MCL [facility] LYMPHOCYTES # 1840 850 - 3900 CELLS/MCL [facility] MONOCYTES # 644 200 - 950 CELLS/MCL [facility] EOSINOPHILS # 138 15 - 550 CELLS/MCL [facility] BASOPHILS # 92 0 - 200 CELLS/MCL [facility] ATYPICAL LYMPHOCYTES # 0 0 - 200 CELLS/MCL [facility] RDW 12.7 11.0 - 15.0 % [facility] MPV 7.0(L) 7.5 - 11.5 FL [facility] 03/31/2009 04/01/2009 12: 36 AM EST us Abel Fierro MD LAB SAME DAY RESULT Final Resul t Performing Organization Address City/[facility] Co de Phone Number [facility] [address] [place] [address] * ASPARTATE AMINOTRANSFERASE (AST), SERUM (03/31/2009) AST (SGOT) 20 10 - 35 U/L [facility] 03/31/2009 04/01/2009 12: 36 AM EST Narrative [facility] - 04/01/2009 5:29 AM EST Report Comments: RBC'S PRESENT, CHEMISTRY RESULT(S) MAY BE AFFECTED us Abel Fierro MD LAB SAME DAY RESULT Final Resul t Performing Organization Address City/[facility] Co de Phone Number [facility] [address] [place] [address] * ALANINE AMINOTRANSFERASE (ALT), SERUM (03/31/2009) ALT (SGPT) 21 6 - 40 U/L [facility] 03/31/2009 04/01/2009 12: 36 AM EST Narrative [facility] - 04/01/2009 5:29 AM EST Report Comments: RBC'S PRESENT, CHEMISTRY RESULT(S) MAY BE AFFECTED us Abel Fierro MD LAB SAME DAY RESULT Final Resul t [facility] [address] [place] [address] documented in this encounter Visit Diagnoses Diagnosis Rheumatoid arthritis(714.0) Rheumatoid arthritis documented in this encounter Care Teams Manager Of Customer Billing Relationship Specialty Start Date End Date Alberto Pacheco [address] [place] [address] PCP - General 07/19/08 05/24/13 Charly Saxena [facility] [address] [place] [address] PCP - General Internal Medicine 05/25/13 07/16/17 Cheryl Calderon MD [facility] Medicine [address] [place] [address] PCP - General Internal Medicine 07/17/17 documented as of this encounter
--- OUTSIDE RECORDS SUMMARY | 2024-06-26 09:30 | XMS_ITS | Encounter Summary ---
Author Organization [facility] Address [address] [place] [address] Care Team Providers Care Manager Appointment Name Role Phone Cheryl Calderon MD Primary Care Provider [phone] Reason for Visit * Reason Comments E-prescribing Refill Request Encounter Details Date Type Department Care Team (Late st Contact Info) Description 02/01/2018 Refill [facility] Rheumatology [address] [place] [address] Abel Fierro MD [address] [place] [address] E-prescribing Refill Request Social History Tobacco Use [...] on filedocumented in this encounter Care Teams Manager Appointment Relationship Specialty Start Date End Date Cheryl Calderon MD [facility] [address] [place] [address] PCP - General Internal Medicine 07/17/17 documented as of this encounter
--- OUTSIDE RECORDS SUMMARY | 2024-06-26 09:31 | XMS_ITS | Encounter Summary ---
Author Organization [facility] Address [phone] [facility] [place] [address] Care Team Providers Care Sheet Tester Name Role Phone Cash Fernandes MD Unavailable [phone] Keren Poon [facility] Primary Care Provid er Willi Wells MD Unavailable Jose Thakur MD Unavailable Dana Rucker RADIOLOGY INTERVENTIONAL PHYSICIAN Unavailable Jonathan Alvarez MD Unavailable [phone] Anival Borja MD Unavailable Lyndsay Reynoso RADIOLOGY INTERVENTIONAL PHYSICIAN Unavailable Gutierrez Pittman MD Unavailable [phone] Reason for Visit * Auth/Cert (Routine) Specialty Diagnoses / Procedures Referred By Contnickie t Referred To Contact Referral ID Status Reason Start Date Expiration Date Visits Re quested Visits Authorized [id number] 1 1 Encounter Details Date Type Department Care Team (Late st Contact Info) Description 06/09/2024 10:30 AM EST Home Care Visit [facility] [address] [place], [place] [phone] Dante Haynes RN [address] [place] [address] [email or web address] SN HOME VISIT Social History Tobacco Use Types Packs/Day Years [...] PM EDT documented as of this encounter Last Filed Vital Signs Vital Sign Reading Time Taken Comments Blood Pressure 132/90 06/09/2024 10:58 AM EST Pulse 79 06/09/2024 10:58 AM EST Temperature 37 ??C (98.6 ??F) 06/09/2024 10:58 AM EST Respiratory Rate - - Oxygen Saturation 94% 06/09/2024 10:58 AM EST Inhaled Oxygen Concentration - - Weight - - Height - - Body Mass Index - - documented in this encounter Plan of Treatment Upcoming Encounters Date Type Department Care Team (Late st Contact Info) Description 06/06/2024 Procedure Pass [address] [address] 06/26/2024 2:00 PM EST Home Care Visit [facility] [address] [place] [phone] Mi[facility], [facility] [address] [place] [address] 06/30/2024 1:15 PM EST Home Care Visit [facility] [address] [place] [phone] Miya Monte, CUSTOMER ACCOUNT TECHNICIAN [address] [place] [address] [email or web address] 07/01/2024 2:30 PM EST Office Visit [facility], Allergy and Critical Care Medicine [address] [place] [address] Jose Thakur MD [address] [place] [address] 07/02/2024 2:15 AM EST Home Care Visit [facility] [address] [place] [phone] Miya Monte, CUSTOMER ACCOUNT TECHNICIAN [address] [place] [address] [email or web address] 07/07/2024 3:00 AM EDT Home Care Visit [facility] [address] [place] [phone] Mi[facility] Monte, [facility] [address] [place] [address] [email or web address] 07/09/2024 12:45 AM EDT Home Care Visit [facility] [address] [place] [phone] Merly Matos, PT [address] [place] [address] 07/30/2024 3:30 PM EDT Office Visit [facility] [address] [place] [address] [place] [address] Keren Poon, [facility] [address] [facility], [address] [place] [address] 09/18/2024 2:30 PM EDT Office Visit [facility] Infectious Diseases [address] [place] [address] Dana Rucker, RADIOLOGY INTERVENTIONAL PHYSICIAN 15 [facility], [address] [place] [phone] 11/26/2024 3:30 PM EDT Office Visit [address] [place], [place] [address] Keren Poon, BRAZING FURNACE FEEDER [address] [facility], [address] [place] [phone] [email or web address] 12/11/2024 2:00 PM EDT Appointment [facility] [address] [place] [address] Keren Poon, ORI [address] [place] [phone] [email or web address] 06/03/2025 2:00 PM EST Office Visit [address] [place], [place] [address] Keren Poon, ORI [address] [place] [phone] [email or web address] documented as of this encounter Visit Diagnoses Not on filedocumented in this encounter Additional Health Concerns Assessment Noted Time PHQ-9 Depression Total Score: 5 05/09/19 24 6:55 AM EST PHQ-2 Depression Total Score: 2 05/27/19 25 1:55 PM EST documented as of this encounter Home Health Visit - Care Plan Visit Details Visit Type -SN HOME VISIT Discipline -Intermediate Problems Problem Description Start Date Status Goals Interve ntions HH - Medication Management Disciplines: All Active Home Health Disciplines 05/14/2024 Active 1 goal linked to scheduled/document ed intervention 2 goal interventions scheduled/document ed in this visit HH - Focus of Care and Teaching Disciplines: All Active Home Health Disciplines w/RD 05/14/2024 Active 1 goal linked to scheduled/document ed intervention 1 goal intervention scheduled/document ed in this visit HH - Emergency Planning - Knowledge of Disciplines: All Active Home Health Disciplines 05/14/2024 Active 1 goal linked to scheduled/document ed intervention 2 goal interventions scheduled/document ed in this visit HH - Infection - Actual or Risk of Disciplines: All Active Home Health Disciplines 05/14/2024 Active 1 goal linked to scheduled/document ed intervention 1 goal intervention scheduled/document ed in this visit HH - Standard of Care Disciplines: All Active Home Health Disciplines 05/14/2024 Active 1 goal linked to scheduled/document ed intervention 5 goal interventions scheduled/document ed in this visit HH - Pain Disciplines: All Active Home Health Disciplines 05/14/2024 Active 1 goal linked to scheduled/document ed intervention 1 goal intervention scheduled/document ed in this visit HH - Fluid volume - Deficit, Risk of Disciplines: Intermediate 05/14/2024 Active - 4 problem interventions scheduled/document ed in this visit HH - Skin Integrity - Impaired Disciplines: Intermediate Active - 3 problem interventions scheduled/document ed in this visit HH - Depression - Actual or Risk of Impairment Disciplines: All Active Home Health Disciplines 05/14/2024 Active 1 goal linked to scheduled/document ed intervention 1 goal intervention scheduled/document ed in this visit Goals Goal Associated Problem Outcome Goal Met? Visit Notes HH - Safe medication management, avoid unnecessary harm related to medication errors and/or interactions HH - Medication Management No HH - Communication and collaboration to achieve patient goals HH - Focus of Care and Teaching No HH - Knowledge of options for managing care in the event of an emergency related situation. HH - Emergency Planning - Knowledge of No HH - Patient will have no new infection; any new infection that occurs will be identified and treated promptly; existing infection will resolve without complication Description: Patient and caregiver(s) will demonstrate understanding of infection prevention, monitoring, and treatment as appropriate HH - Infection - Actual or Risk of No HH - Achieve care management for a safe to home/community discharge from homecare HH - Standard of Care No HH - Frequency of pain interfering with patient's activity or movement will improve with activity or movement by discharge. Description: Pain will be managed over the course of care. Patient's acceptable level of pain is 1 - pain that doesn't interfere. HH - Pain No HH - Demonstrate/verbalize improvement in depressive symptoms HH - Depression - Actual or Risk of Impairment No Interventions Intervention Associated Problem/Goal Status Variance Visit Notes HH - I/E medication management: administration, purpose, dosages, preparation, setup, scheduling, side effects, food/drug interactions, and potential complications as indicated Description: Update patient's copy of medication list as needed. Problem:HH - Medication Management Goal:HH - Safe medication management, avoid unnecessary harm related to medication errors and/or interactions Completed HH - Complete medication review every visit and medication reconciliation as indicated. Pharmacy information: Problem:HH - Medication Management Goal:HH - Safe medication management, avoid unnecessary harm related to medication errors and/or interactions Completed HH - Focus of care, teaching completed and plan for next visit Problem:HH - Focus of Care and Teaching Goal:HH - Communication and collaboration to achieve patient goals Completed Primary Clinical Focus this Visit & Instruction Provided: Pt. alert, VSS with BP 132/90- reports just worked with PT. Complains of not able to reach to BR on time for BMs and has some staining on pads since hospitalization-but been improving slowly. Per pt. BMs 2-3/day but formed. Following small portions of meals to avoid abd discomfort. Denies any chest pain/dizziness or issues. Pt. following hydration. Trace edema to R ankle and dry skin notable- moisturizing lotion applied to BLEs. Pt to follow up with ID on 06/19/24. Pt. complains of knees and neck chronic pain- Infusion therapy still pending d/t GI issues. Will follow up w/rheumatology for Infusion once done with ABX therapy. Pt. still not doing daily wt. I/E on s/s of fluid overload-and importance of keeping daily wt. log- verbalizes understanding and agrees to wt. daily same time after morning voids. I/E on when to call [facility]/Providers/911- verbalizes understanding. Pt. agrees on DC plan once finished with vancomycin dose- nervous regarding Re-occurrence of C. DIFF. Instruction Provided to: patient Response to Instruction/Teaching: Is fully able to teach back topics as evidenced by verbalization. Plan for Next Visit Specific Focus & Education Needed: cvp/GI/ assessment New Orders: no Updated Discharge Plan: once stable and completion of ABX therapy. HH - I/E management of care in an urgent or emergency (ER) situation: When to call your Home Care Team/911, ER plans, supplies, evacuation, when to contact local ER officials and how to stay informed Problem:HH - Emergency Planning - Knowledge of Goal:HH - Knowledge of options for managing care in the event of an emergency related situation. Completed - Emergency planning assessment: the emergency plan, supplies needed, emergency contact numbers and an evacuation plan were reviewed Description: Patient and Caregiver is/are knowledgeable of emergency plans. Problem:HH - Emergency Planning - Knowledge of Goal:HH - Knowledge of options for managing care in the event of an emergency related situation. Completed - Assess infection risk and s/s Problem: - Infection - Actual or Risk of Goal:HH - Patient will have no new infection; any new infection that occurs will be identified and treated promptly; existing infection will resolve without complication Completed HH - Assess vital signs, pulse oximetry, pain, and as indicated, orthostatic vital signs Description: use agency-specific parameters Problem: - Standard of Care Goal:HH - Achieve care management for a safe to home/community discharge from homecare Completed HH - Assess skin integrity Problem:HH - Standard of Care Goal:HH - Achieve care management for a safe to home/community discharge from homecare Completed HH - Precautions Description: Contact precautions Oxygen precautions Problem: - Standard of Care Goal:HH - Achieve care management for a safe to home/community discharge from homecare Completed HH - I/E discharge plan Problem:HH - Standard of Care Goal:HH - Achieve care management for a safe to home/community discharge from homecare Completed - Complete Moses scale at SOC and weekly Problem:HH - Standard of Care Goal:HH - Achieve care management for a safe to home/community discharge from homecare Completed HH - Assess pain Problem: - Pain Goal: - Frequency of pain interfering with patient's activity or movement will improve with activity or movement by discharge. Completed HH - Assess bowel status Problem:HH - Fluid volume - Deficit, Risk of Completed HH - Assess nutrition/hydration Description: Encourage hydration Problem:HH - Fluid volume - Deficit, Risk of Completed HH - I/E oral fluid promotion Problem:HH - Fluid volume - Deficit, Risk of Completed Instructions provided to: patient Topic: encourage hydration Response to teaching: patient has complete understanding - I/E diarrhea management, dehydration s/s Problem:HH - Fluid volume - Deficit, Risk of Completed HH - Assess skin integrity Problem:HH - Skin Integrity - Impaired Completed HH - I/E skin integrity - impaired: Problem:HH - Skin Integrity - Impaired Completed HH - Ordered skin care (non-wound) Description: Apply barrier cream twice daily and as needed. Patient to perform Problem:HH - Skin Integrity - Impaired Completed HH - Assess s/s of depression Problem:HH - Depression - Actual or Risk of Impairment Goal:HH - Demonstrate/verbalize improvement in depressive symptoms Completed documented in this encounter Care Teams Sheet Tester Relationship Specialty Start Date End Date Keren Poon CNP [address] [place] [address], [address] [place] [address] PCP - General Family Medicine 01/31/23 Cash Fernandes MD [address] [place] [address] Gastroenterology 08/23/20 Willi Wells MD [address] [place], [place] [address] [address] Rheumatology 02/04/24 Jose Thakur MD [address] [place] [address] Ux Consultant Pulmonary Disease 03/17/24 Dana Rucker FNP 15 [facility], [address] [place] [address] Nurse Practitioner Infectious Diseases 05/21/24 Jonathan Alvarez MD [address] [facility], [address] [place] [address] Urology 05/14/23 Anival Borja MD [address] [place] [address], [address] [place] [address] Neurologist Neurology 01/04/23 Lyndsay Reynoso FNP 10 [facility] [address] [place] [phone] [email or web address] Nurse Practitioner Pain Medicine 05/27/22 Gutierrez Pittman MD [address] [place] [phone] Sales Promoter Cardiology 05/27/24 documented as of this encounter Additional Source Comments The information contained in this document represents components of the legal health record. It is not the complete legal health record.[facility]
--- OUTSIDE RECORDS SUMMARY | 2024-06-26 09:31 | XMS_ITS | Encounter Summary ---
Author Organization [facility] Address [phone] [place] [id number] Care Team Providers Care Brewing Director Name Role Phone Cash Fernandes MD Unavailable [phone] Keren Poon GARDEN CONSULTANT Primary Care Provid er Willi Wells MD Unavailable Jose Thakur MD Unavailable [phone] Dana Rucker DEMAND PLANNING MANAGER Unavailable Jonathan Alvarez MD Unavailable [phone] Anival Borja MD Unavailable Lyndsay Reynoso DEMAND PLANNING MANAGER Unavailable Gutierrez Pittman MD Unavailable [phone] Reason for Visit * Reason Comments Medicare Annual Wellness Visit Subsequen t Encounter Details Date Type Department Care Team (Late st Contact Info) Description 05/27/2024 2:00 PM EST Office Visit [facility] [address] [place] [address] [place] [id number] Keren Poon, GARDEN CONSULTANT [address] [place] [address], [address] [place] [address] Encounter for health maintenance examination in adult [...] Mild Lewy body dementia with mood disturbance Social History Tobacco Use Types Packs/Day Years [...] Sign Reading Time Taken Comments Blood Pressure 102/62 05/27/2024 2:17 PM EST Pulse 91 05/27/2024 2:17 PM EST Temperature 36.7 ??C (98 ??F) 05/27/2024 2:17 PM EST Respiratory Rate - - Oxygen Saturation 98% 05/27/2024 2:17 PM EST Inhaled Oxygen Concentration - - Weight 75.8 kg (167 lb 3.2 oz) 05/27/2024 2:17 P M EST Height 157.5 cm (5' 2 ) 05/27/2024 2:17 PM EST Body Mass Index 30.58 05/27/2024 2:17 PM EST documented in this encounter Patient Instructions * Patient Instructions* Keren Poon Jailyn, GARDEN CONSULTANT - 05/27/2024 2:00 PM EST Images from the original note were not included. Well Visit, Over 65: Care Instructions Well visits can help you stay healthy. Your doctor has checked your overall health and may have suggested ways to take good care of yourself. Your doctor also may have recommended tests. You can helpprevent illness with healthy eating, good sleep, vaccinations, regular exercise, and other steps. Get the tests that you and your doctor decide on. Depending on your age and risks, examples might include hearing tests as well as screening for colon, breast, and lung cancer. Screening helps find diseases before any symptoms appear. Eat healthy foods. Choose fruits, vegetables, whole grains, lean protein, and low-fat dairy foods. Limit saturated fat, and reduce salt. Limit alcohol. Men should have no more than 2 drinks a day. Women should have no more than 1. For some people, no alcohol is the best choice. Exercise. It can help prevent falls. Get at least 30 minutes of exercise on most days of the week. Walking, yoga, and joaquina chi can be good choices. Reach and stay at your healthy weight. This will lower your risk for many health problems. Take care of your mental health. Try to stay connected with friends, family, and community, and find ways to manage stress. If you're feeling depressed or hopeless, talk to someone. A counselor can help. If you don't have acounselor, talk to your doctor. Talk to your doctor if you think you may have a problem with alcohol or drug use. This includes prescription medicines and illegal drugs. Avoid tobacco and nicotine: Don't smoke, vape, or chew. If you need help quitting, talk to your doctor. Practice safer sex. Getting tested, using condoms or dental dams, and limiting sex partners can help prevent STIs. Make an advance directive. This is a legal way to tell your family and doctor what you want to happen at the end of your life or when you can't speak for yourself. Prevent problems where you can. Protect your skin from too much sun, wash your hands, brush your teeth twice a day, and wear a seat belt in the car. Where can you learn more? Please login or enroll in Patient Elizabeth: [email or web address] Select the Menu icon from the Header & then scroll down to the Resources section & select Search Across The [employer] Library. Enter K859 in the search box to learn more about 'Well Visit, Over 65: Care Instructions.' Current as of: August 27, 2023 Content Version: 14.3 ?? 2023 RoomActually. Care instructions adapted under license by your healthcare professional. If you have questions about a medical condition or this instruction, always ask your healthcare professional. RoomActually disclaims any warranty or liability for your use of this information. documented in this encounter Progress Notes * Keren Poon CNP - 05/27/2024 2:00 PM ESTAddended by: KEREN POON on: 06/06/2024 12:58 PM Modules accepted: Level of Service * Keren Poon CNP - 05/27/2024 2:00 PM EST Images from the original note were not included. Reason for Visit: The patient presents today for their Annual Wellness Visit and inpatient follow- up. She is accompanied at today's visit by her , Faustino, who helped provide history. History of Present Illness She had been seen by me for inpatient follow-up regarding her admission 04/10 - 04/16/24 re: C-diffcolitis. She presented back to the ED w/ abdominal pain and bloody diarrhea. She was subsequently hospitalized again 05/07 - 05/13/24 re: C- diff colitis, during which she received intravenous antibiotics and fluids. Post-discharge, she has been under the care of an infectious disease specialist, who prescribed a tapering dose of antibiotics, currently at 2 per day, with a plan to reduce to 1 per dayover the next 3 to 4 weeks. She has been taking probiotic supplements. She feels she is doing fairly well, reporting only minor lower abdominal cramps. Her RA has not been in good control. Her Rituxan treatment, due in 03/2023, has been postponed twice due to ongoing diarrhea and the need to discontinue vancomycin. She has temporarily stopped methotrexate due to concerns about potential interactions with antibiotics. She has been supplementing her diet with Ensure and G-fit electrolyte drinks. She has a history of IBS and takes psyllium fiber pills, 2 in the morning and 2 later in the day. She reports no recent weight changes. She had a colonoscopy in 2018 and is due for another once her current health issues are resolved. She has also been dealing with recurrent UTI's. She has been provided with 4 urine cups for UTI testing, to be used as needed. She continues her regimen of Hiprex, cranberry capsules, and 500 mg of vitamin C. She has discontinued antacids, except for Tums, of which she has taken 5 in the last few days. She has been experiencing stiffness in her knees and feet, necessitating a brief period of standingbefore moving. She also reports a pinched nerve in her neck and has an upcoming appointment with pain management. She has not been using tramadol as it does not alleviate her pinched nerve symptoms, instead opting for a muscle relaxant. She is uncertain about her mammogram status but believes one may be scheduled. She sees a dentist every 6 months. IMMUNIZATIONS She is up to date with her RSV, flu, COVID-19, and pneumonia vaccines. She has not received the shingles vaccine. Review of patient's current problem list and medications completed. 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 Advance Care/End of Life Planning Discussed: Yes Medicare HRA reviewed: Patient presented with full Medicare Health Risk Assessment; declined questions are not displayed 05/27/2024 1:55 PM Medicare HRA Who is completing this form? Self/Patient With regards to my weight: My weight has been stable My appetite is: Good Select the actions you may need help with: Meal preparation;Washing dishes or clothes;House or yardwork;Paying bills or keeping track of money;Obtaining food and other necessities;Keeping track of appointments;Taking medications;Transportation;Bathing or showering;Walking or exercise;Going up and down stairs Are you getting all the help you need with these actions? Yes Do you have the devices/equipment you need with these actions (i.e., walker, cane, etc)? Yes Please select items in the below list you need but DO NOT currently have: None of the above Do you or family members have any concerns about your memory? No Do you have any health problems that require you to stay home? Yes In general, would you say your health is: Fair During the past week, how many days did you do at least moderate physical activity? For example: walking, yoga, joaquina chi, and stretching classes. 2 Do you fasten your seat belt when you are in a car? Yes Who are you currently living with? Spouse/significant other Patient is not taking any prescription opioid medication(s). She is prescribed Tramadol but has notbeen taking. Today we reviewed potential non-opioid treatment options. She is [place] [facility]. Depression Screenin05/27/2024 1:55 PM Depression Screening PHQ-2 Score 2 PHQ 2/9 Attestation Five or more minutes of combined provider, clinical staff, and patient time were spent administering the PHQ2/9 screening tool. Time included explaining the reason for annual screening, time for patient to complete questionnaire, calculating score, interpreting results, discussing results and implications with patient, and answering any patient questions. The patient was advised to contact our office with additional questions or with any changes in lifecircumstances that may increase risk for depression, and that this office can assist with interventions. Please refer to the PHQ9 screening tool for the patient's answers and score. Alcohol Screenin05/27/2024 Alcohol Screening Audit-C Score 0 AUDIT-C Attestation Five or more minutes of combined provider, clinical staff, and patient time were spent administering the AUDIT-C screening tool. Time included explaining the reason for annual screening, time for patient to complete questionnaire, calculating score, interpreting results, discussing results and implications with patient, and answering any patient questions. The patient was advised to contact our office with additional questions or with any changes in lifecircumstances that may increase the risk of alcohol misuse, and that this office can assist with interventions. Please refer to the AUDIT-C screening tool for the patient's answers and score. Cognition: Concerns about memory: No Hearing: Hearing ROS: negative STRIDE Falls Risk: 05/27/2024 1:55 PM Falls Risk Have you fallen and hurt yourself in the past year? N Have you fallen 2 or more times in the past year? N Are you afraid that you might fall because of balance or walking problems? N 5-10 year preventative screening recommendations discussed. Health Maintenance Topic Date Due ZOSTER VACCINES (1 of 2) Never done MAMMOGRAM 07/28/2023 Adult Td,Tdap Booster 09/27/2024 BLOOD PRESSURE 12/03/2024 TSH LEVEL 01/01/2025 LIPID PANEL 01/01/2025 CREATININE LEVEL 05/13/2025 POTASSIUM LEVEL 05/13/2025 DEPRESSION SCREENING 05/27/2025 SCREENING FOR DIABETES 05/13/2027 COLORECTAL CANCER SCREENING 09/03/2027 COVID-19 VACCINE Completed OSTEOPOROSIS SCREENING INITIAL (ONE-TIME) Completed RSV VACCINE Completed HEPATITIS B SCREENING Completed HEPATITIS C SCREENING Completed SMOKING STATUS SCREENING (Once After 26 Yrs) Completed PNEUMOCOCCAL VACCINES (50+ years) Completed INFLUENZA VACCINE Completed HIB VACCINES Aged Out HEPATITIS B VACCINES Aged Out HEPATITIS A VACCINES Aged Out MENINGOCOCCAL VACCINES (ACWY) Aged Out Immunization History Administered Date(s) Administered COVID-19 (Pre-02/18) Pfizer Vaccine, Bivalent 12+ 04/13/2022 COVID-19 (Pre-02/18) Pfizer Vaccine, mRNA, PF 07/08/2020, 10/03/2020, 04/11/2021 COVID-19 (Pre-02/18) Pfizer Vaccine, mRNA, mohan-sucrose, PF 09/11/2021 COVID-19 Pfizer Comirnaty Vaccine 12+ 03/09/2023, 02/26/2024 [id number] FORMULATION 05/13/2009 Influenza High-Dose Quadrivalent Preservative Free IM 03/07/2022 Influenza Quadrivalent Adjuvanted Preservative Free IM 02/12/2021 Influenza Quadrivalent Preservative Free IM 01/21/2014, 02/03/2015, 01/07/2020 Influenza Recombinant Quadrivalent Preservative Free IM 03/09/2023 Influenza Trivalent Adjuvanted Preservative free IM 02/26/2024 Influenza Trivalent Preservative Free IM 04/02/2012 Influenza Trivalent w/ Preservative IM 04/02/2002, 03/08/2004 Influenza, Unspecified Formulation 01/28/2004, 02/28/2008, 02/12/2009, 05/27/2013 PPD Test 01/02/2017 Pneumococcal conjugate PCV13 09/27/2014 Pneumococcal polysaccharide PPSV23 06/26/2000, 02/27/2007, 10/11/2011, 07/10/2021 Pneumococcal, Unspecified Formulation 02/27/2007 RSV Vaccine (bivalent) 03/11/2024 Td (adult),2 Lf Tetanus Toxoid, PF, Adsorbed 07/05/1997 Tdap 04/14/2010, 09/27/2014 Review and update of patient care team completed: Patient Care Team: Keren Poon CNP as PCP - General (Family Medicine) Cash Fernandes MD (Gastroenterology) Lyndsay Reynoso FNP as Nurse Practitioner (Pain Medicine) Anival Borja MD as Neurologist (Neurology) Jonathan Alvarez MD (Urology) Willi Wells MD (Rheumatology) Jose Thakur MD as Card Cleaner (Pulmonary Disease) Dana Rucker FNP as Nurse Practitioner (Infectious Diseases) Gutierrez Pittman MD as Chief Deputy (Cardiology) Review of Systems Constitutional: Negative for activity change, appetite change and unexpected weight change. HENT: Negative for changes in hearing. Eyes: Negative for unexpected vision change. Respiratory: Negative for cough and shortness of breath. Gastrointestinal: Positive for abdominal pain and diarrhea. Negative for constipation. Genitourinary: Negative for problems with urination, pain with intercourse and blood in urine. Neurological: Negative for dizziness, syncope, headaches and changes in memory. Skin: Negative for persistent rash and breast concerns. Musculoskeletal: Positive for joint pain, joint swelling, neck pain and neck stiffness. BP 102/62 (BP Location: Left arm, Patient Position: Sitting, Cuff Size: Large) Pulse 91 Temp 36.7 ??C (98 ??F) (Temporal) Ht 157.5 cm (5' 2 ) Wt 75.8 kg (167 lb 3.2 oz) SpO2 98% BMI 30.58kg/m?? Physical Exam Vitals reviewed. Constitutional: General: She is awake. Appearance: Normal appearance. She is well-developed, well-groomed and overweight. Comments: Seated in wheelchair. HENT: Head: Normocephalic and atraumatic. Nose: Nose normal. No nasal deformity. Mouth/Throat: Lips: No lesions. Eyes: General: No scleral icterus. Conjunctiva/sclera: Conjunctivae normal. Cardiovascular: Rate and Rhythm: Normal rate and regular rhythm. Heart sounds: Normal heart sounds, S1 normal and S2 normal. No murmur heard. Pulmonary: Effort: Pulmonary effort is normal. No respiratory distress. Breath sounds: Normal breath sounds and air entry. Abdominal: General: Abdomen is flat. Bowel sounds are normal. There is no distension. Palpations: Abdomen is soft. Tenderness: There is no abdominal tenderness. There is no guarding or rebound. Hernia: No hernia is present. Musculoskeletal: Right hand: Deformity present. Left hand: Deformity present. Right lower leg: No edema. Left lower leg: No edema. Skin: General: Skin is warm and dry. Coloration: Skin is not cyanotic or jaundiced. Findings: No rash. Neurological: General: No focal deficit present. Mental Status: She is alert and oriented to person, place, and time. Psychiatric: Attention and Perception: Attention and perception normal. Mood and Affect: Mood and affect normal. Speech: Speech normal. Behavior: Behavior normal. Behavior is cooperative. Problem List Items Addressed This Visit Hematology and Oncology Secondary hypercoagulable state Re: PAF. Stable on Eliquis. Had blood-streaked stools related to recent C-diff colitis but this hasresolved. Cardiovascular and Mediastinum Hypertensive disorder (Chronic) Stable, BP well controlled on current regimen. On low dose losartan and lasix daily, tolerating well w/o dizziness. Paroxysmal A-fib (Chronic) Hx PAF. Rate controlled on carvedilol and on Eliquis for AC. HRR on exam today. Followed by [facility] cardiology (Dr Pittman). Aortic insufficiency Echocardiogram done 10/01/23 w/moderate aortic regurgitation, advanced from previous imaging (2019). No audible murmur, asymptomatic. Plan for repeat echo in 1 year (due 09/2025). Respiratory Obstructive sleep apnea, adult (Chronic) Patient has been intolerant to CPAP in the past. She normally wears 2 L of oxygen at night and as needed. Dyspnea on exertion HTOMPSON has improved with higher dose of lasix, increased 10>>20mg last year. Appears euvolemic on exam. Echo 10/01/23 w/ LVEF 60-65%. Endocrine Hypothyroidism (Chronic) s/p GOODWIN for for hyperthyroidism; now on stable on levothyroxine 88mcg daily. Clinically euthyroid, TSH 1.46 (12/2023). IFG (impaired fasting glucose) Fasting blood sugar has fluctuated 88-109, A1c 5.3. Monitor. Rheumatology Rheumatoid arthritis involving multiple sites (Chronic) Longstanding history of severe erosive and deforming RA with pain in multiple joints. Using a wheelchair since around 2018 due to knee pain. Her usual regimen includes rituximab, methotrexate, and prednisone which had been working well for her. Her Rituxan treatment has been delayed twice due to ongoing diarrhea and the need to discontinue vancomycin. She has temporarily stopped methotrexate due to concerns about potential interactions with antibiotics. Followed by rheumatology and also pain specialty. 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 MRI brain (06/2019) w/ moderate chronic small vessel disease andmultiple chronic lacunar infarcts (new from 2018). She questions this diagnosis. Functional and well supported by her partner, has capacity. Cervical radiculopathy Neck stiffness with muscle spasm and pinched nerve. Improved with rest, heat and cyclobenzaprine PRN. Continue conservative care at home. Occipital neuralgia of left side Left sided face and head pain w/ dx: occipital neuralgia. S/p nerve ablation last year without improvement. Recently w/ recurrence of pinched nerve in her neck. Followed by neurology (Dr Borja)and also [place] Relevant Medications cyclobenzaprine (FLEXERIL) 5 MG tablet Gastrointestinal C. difficile colitis Recently with two episodes of C-diff colitis. Sx are improved with vancomycin, continues on extended taper. Encouraged to continue probiotic supplement and include naturally probiotic foods in her diet. She will follow-up with infectious disease as planned, recent visit note reviewed. If she experiences another recurrence, preventative antibiotics may be considered. Genitourinary OAB (overactive bladder) (Chronic) OAB generally associated with frequency and urgency. She has discontinued oxybutynin. Followed by urology (Dr Alvarez). Atrophic vaginitis Stable, continues on topical estrogen cream twice/week. Urinary incontinence Has urge incontinence, complicated by her mobility issues, wears adult diapers. Behavioral and Developmental Major depressive disorder (Chronic) Stable, continues on escitalopram with benefit. Looking for an individual counselor. Remains in good spirits despite recent health issues, well supported by her partner. No safety concerns at present. Anxiety disorder Chronic anxiety w/ insomnia managed with PRN lorazepam and cannabis gummies. Continues on escitalopram re: anxiety and co-morbid depression. Musculoskeletal Osteopenia (Chronic) Lumbar spine, bilateral femoral neck and total hip osteopenia noted on DEXA 04/25/21. On chronic steroids re: RA. Continues on alendronate weekly. Continue weightbearing activity as tolerated. Pt at risk for falls with poor balance. Other Visit Diagnoses Encounter for health maintenance examination in adult - Primary Encounter for screening for depression Breast cancer screening by mammogram Last mammogram 07/27/21 BiRads2. Routine screening ordered. Relevant Orders Mammogram Screening (Bilateral) Follow-up The patient will return for a medical management visit in 6 months. Her next well visit is due in 1year. She will follow-up sooner as necessary. Additional Documentation: Patient Counseling: --Nutrition: Stressed importance of moderation in sodium/caffeine intake, saturated fat and cholesterol, caloric balance, sufficient intake of fresh fruits, vegetables, fiber, calcium, iron, and 1 mgof folate supplement per day (for females capable of ). --Discussed the issue of estrogen replacement, calcium supplement, and the daily use of baby aspirin. --Exercise: Stressed the importance of regular exercise. --Substance Abuse: Discussed cessation/primary prevention of tobacco, alcohol, or other drug use; driving or other dangerous activities under the influence; availability of treatment for abuse. --Sexuality: Discussed sexually transmitted diseases, partner selection, use of condoms, avoidance of unintended and contraceptive alternatives. --Injury prevention: Discussed safety belts, safety helmets, smoke detector, smoking near bedding or upholstery. --Dental health: Discussed importance of regular tooth brushing, flossing, and dental visits. --Immunizations reviewed. --Discussed benefits of screening colonoscopy. --After hours service discussed with patient Summary Information gathered at this wellness visit has been reviewed and updated. Patient was given personalized health advice and appropriate referrals, to health education or preventive counseling services or programs aimed at reducing identified risk factors and improving self-management and wellness, including weight loss, physical activity, smoking cessation, fall prevention, and nutrition. AVS given to patient I have maintained a long-term, longitudinal relationship with this patient, overseeing care of chronic conditions, including rheumatoid arthritis, a-fib and hypertension. This care relationship has significantly influenced my decision- making and treatment plans during today's encounter. I obtained verbal consent from the patient or their proxy to record this visit for purposes of producing a draft of the encounter documentation. documented in this encounter Miscellaneous Notes * Assessment & Plan Note - Keren Pono CNP - 06/06/2024 12:52 PM ESTAssociated Problem(s): Mild dementia Lewy body dementia vs muti-infarct. MRI brain (06/2019) w/ moderate chronic small vessel disease andmultiple chronic lacunar infarcts (new from 2018). She questions this diagnosis. Functional and well supported by her partner, has capacity. * Assessment & Plan Note - Keren Poon CNP - 06/06/2024 12:43 PM ESTAssociated Problem(s): Anxiety disorder Chronic anxiety w/ insomnia managed with PRN lorazepam and cannabis gummies. Continues on escitalopram re: anxiety and co-morbid depression. * Assessment & Plan Note - Keren Poon CNP - 06/06/2024 12:41 PM ESTAssociated Problem(s): Hypothyroidism s/p GOODWIN for for hyperthyroidism; now on stable on levothyroxine 88mcg daily. Clinically euthyroid, TSH 1.46 (12/2023). * Assessment & Plan Note - Keren Poon CNP - 06/06/2024 12:39 PM ESTAssociated Problem(s): Dyspnea on exertion THOMPSON has improved with higher dose of lasix, increased 10>>20mg last year. Appears euvolemic on exam. Echo 10/01/23 w/ LVEF 60-65%. * Assessment & Plan Note - Keren Poon CNP - 06/06/2024 12:35 PM ESTAssociated Problem(s): IFG (impaired fasting glucose) Fasting blood sugar has fluctuated 88-109, A1c 5.3. Monitor. * Assessment & Plan Note - Keren Poon CNP - 06/06/2024 12:32 PM ESTAssociated Problem(s): Aortic insufficiency Echocardiogram done 10/01/23 w/moderate aortic regurgitation, advanced from previous imaging (2019). No audible murmur, asymptomatic. Plan for repeat echo in 1 year (due 09/2025). * Assessment & Plan Note - Keren Poon CNP - 06/06/2024 12:24 PM ESTAssociated Problem(s): Secondary hypercoagulable state Re: PAF. Stable on Eliquis. Had blood-streaked stools related to recent C-diff colitis but this hasresolved. * Assessment & Plan Note - Keren Poon CNP - 06/06/2024 12:22 PM ESTAssociated Problem(s): Paroxysmal A-fib Hx PAF. Rate controlled on carvedilol and on Eliquis for AC. HRR on exam today. Followed by [facility] cardiology (Dr Pittman). * Assessment & Plan Note - Keren Poon CNP - 06/06/2024 12:21 PM ESTAssociated Problem(s): Hypertensive disorder Stable, BP well controlled on current regimen. On low dose losartan and lasix daily, tolerating well w/o dizziness. * Assessment & Plan Note - Keren Poon CNP - 06/06/2024 12:20 PM ESTAssociated Problem(s): Obstructive sleep apnea, adult Patient has been intolerant to CPAP in the past. She normally wears 2 L of oxygen at night and as needed. * Assessment & Plan Note - Keren Poon CNP - 06/06/2024 12:18 PM ESTAssociated Problem(s): Osteopenia Lumbar spine, bilateral femoral neck and total hip osteopenia noted on DEXA 04/25/21. On chronic steroids re: RA. Continues on alendronate weekly. Continue weightbearing activity as tolerated. Pt at risk for falls with poor balance. * Assessment & Plan Note - Keren Poon CNP - 06/06/2024 12:16 PM ESTAssociated Problem(s): Urinary incontinence Has urge incontinence, complicated by her mobility issues, wears adult diapers. * Assessment & Plan Note - Keren Poon CNP - 06/06/2024 12:15 PM ESTAssociated Problem(s): OAB (overactive bladder) OAB generally associated with frequency and urgency. She has discontinued oxybutynin. Followed by urology (Dr Alvarez). * Assessment & Plan Note - Keren Poon CNP - 06/06/2024 12:13 PM ESTAssociated Problem(s): Atrophic vaginitis Stable, continues on topical estrogen cream twice/week. * Assessment & Plan Note - Keren Poon CNP - 06/06/2024 12:12 PM ESTAssociated Problem(s): Major depressive disorder Stable, continues on escitalopram with benefit. Looking for an individual counselor. Remains in good spirits despite recent health issues, well supported by her partner. No safety concerns at present. * Assessment & Plan Note - Keren Poon CNP - 06/06/2024 12:11 PM ESTAssociated Problem(s): C. difficile colitis Recently with two episodes of C-diff colitis. Sx are improved with vancomycin, continues on extended taper. Encouraged to continue probiotic supplement and include naturally probiotic foods in her diet. She will follow-up with infectious disease as planned, recent visit note reviewed. If she experiences another recurrence, preventative antibiotics may be considered. * Assessment & Plan Note - Keren Poon CNP - 06/06/2024 12:08 PM ESTAssociated Problem(s): Cervical radiculopathy Neck stiffness with muscle spasm and pinched nerve. Improved with rest, heat and cyclobenzaprine PRN. Continue conservative care at home. * Assessment & Plan Note - Keren Poon CNP - 06/06/2024 12:04 PM ESTAssociated Problem(s): Occipital neuralgia of left side Left sided face and head pain w/ dx: occipital neuralgia. S/p nerve ablation last year without improvement. Recently w/ recurrence of pinched nerve in her neck. Followed by neurology (Dr Borja)and also [place] ([facility] * Assessment & Plan Note - Keren Poon CNP - 06/06/2024 12:03 PM ESTAssociated Problem(s): Rheumatoid arthritis involving multiple sites Longstanding history of severe erosive and deforming [...] Followed by rheumatology and also pain specialty. documented in this encounter Plan of Treatment Upcoming Encounters Date Type Department Care Team (Late st Contact Info) Description 06/06/2024 Procedure Pass [facility] [address] [place] [address] 06/26/2024 2:00 PM EST Home Care Visit [facility] [address] [place] [phone] Miya Monte, [facility] [address] [place] [address] 06/30/2024 1:15 PM EST [facility] [address] [place] [phone] Miya Monte, [employer]UX[employer] [address] [place] [address] 07/01/2024 2:30 PM EST Office [place] [facility], Allergy and Critical Care Medicine [address] [place] [phone] Jose Thakur MD [address] [place] [address] 07/02/2024 2:15 AM EST [facility] Visit [facility] [address] [place] [address] Miya Monte, [employer] [address] [place] [address] 07/07/2024 3:00 AM EDT Home [facility] Visit [facility] [address] [place] [phone] Miya Monte, SUPER[employer] [address] [place] [address] 07/09/2024 12:45 AM EDT Home Care Visit [facility] [address] [place] [address] Merly Matos, PT [address] [place] [address] 07/30/2024 3:30 PM EDT Office Visit [facility] [address] [place] [address] [place] [id number] Keren Poon, GARDEN CONSULTANT 170 [facility], 2nd [place] [address] 09/18/2024 2:30 PM EDT Office Visit [facility] Infectious Diseases [address] [place] [address] Dana Rucker, DEMAND PLANNING MANAGER 15 [facility], [address] [place] [phone] [email or web address] 11/26/2024 3:30 PM EDT Office Visit [address] [place] [address] Keren Poon, ORI [address] [address] 12/11/2024 2:00 PM EDT Appointment [facility] [address] [place] [address] Keren Poon, ORI [address] [place] [address] 06/03/2025 2:00 PM EST Office Visit [address] [place] [address] Keren Poon, ORI [address] [place] [address] [email or web address] Scheduled Orders Name Type Priority Associated Diagnoses Orde r Schedule Mammogram Screening (Bilateral) Imaging Routine Breast cancer screening by mammogram Expected: 06/06/2024, Expires: 06/06/2026 documented as of this encounter Visit Diagnoses Diagnosis Encounter for health maintenance examination in adult- Primary Encounter for screening for depression Breast cancer screening by mammogram Rheumatoid arthritis involving multiple sites, unspecified whether rheumatoid factor present Occipital neuralgia of left side Cervical radiculopathy Brachial neuritis or radiculitis nos C. difficile colitis Moderate episode of recurrent major depressive disorder Atrophic vaginitis Postmenopausal atrophic vaginitis OAB (overactive bladder) Urge incontinence of urine Urge incontinence Osteopenia of multiple sites Obstructive sleep apnea, adult Primary hypertension Unspecified essential hypertension Paroxysmal A-fib Secondary hypercoagulable state Aortic valve insufficiency, etiology of cardiac valve disease unspecified IFG (impaired fasting glucose) Dyspnea on exertion Other dyspnea and respiratory abnormality Acquired hypothyroidism Unspecified hypothyroidism Generalized anxiety disorder 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 diff 04/10/2024 05/07/2024 06/06/2024 1:21 AM EST Assessment Noted Time PHQ-9 Depression Total Score: 5 05/09/19 6:55 AM EST PHQ-2 Depression Total Score: 2 05/27/19 1:55 PM EST documented as of this encounter Care Teams Brewing Director Relationship Specialty Start Date End Date Keren Poon CNP [address] [place] [address], [address] [place] [address] PCP - General Family Medicine 01/31/23 Cash Fernandes MD [address] [place] [address] Gastroenterology 08/23/20 Willi Wells MD [address] [place] [address] Rheumatology 02/04/24 Jose Thakur MD 30 [place] [address] Card Cleaner Pulmonary Disease 03/17/24 Dana Rucker FNP 15 [facility], [address] [place] [address] Nurse Practitioner Infectious Diseases 05/21/24 Jonathan Alvarez MD [address] [place] [address], [address] [place] [address] Urology 05/14/23 nAival Borja MD [address] [place] [address], [address] [place] [address] Neurologist Neurology 01/04/23 Lyndsay Reynoso FNP [address] [place] [address] [place] [phone] [email or web address] Nurse Practitioner Pain Medicine 05/27/22 Gutierrez Pittman MD [address] [place] [phone] Chief Deputy Cardiology 05/27/24 documented as of this encounter Additional Source Comments The information contained in this document represents components of the legal health record. It is not the complete legal health record.[facility]
--- OUTSIDE RECORDS SUMMARY | 2024-06-26 09:31 | XMS_ITS | Encounter Summary ---
Author Organization [facility] Address [phone] [facility] [place] [address] Care Team Providers Care Computer Programmer Name Role Phone Cash Fernandes MD Unavailable [phone] Keren Poon [facility] Primary Care Provid er Willi Wells MD Unavailable Jose Thakur MD Unavailable Dana Rucker ACID MIXER Unavailable [phone] Jonathan Alvarez MD Unavailable [phone] Anival Borja MD Unavailable Lyndsay Reynoso ACID MIXER Unavailable Gutierrez Pittman MD Unavailable [phone] Reason for Visit * Auth/Cert (Routine) Specialty Diagnoses / Procedures Referred By Contnickie t Referred To Contact Referral ID Status Reason Start Date Expiration Date Visits Re quested Visits Authorized [id number] 1 1 Encounter Details Date Type Department Care Team (Late st Contact Info) Description 06/05/2024 11:00 AM EST Home Care Visit [facility] [address] [place], [place] [phone] Miya Monte, UNDERGROUND MINE MACHINERY MECHANIC 168 [employer] [place] [address] [email or web address] UNDERGROUND MINE MACHINERY MECHANIC HOME VISIT Social History Tobacco Use Types [...] Sign Reading Time Taken Comments Blood Pressure 126/80 06/05/2024 11:21 AM EST Pulse 74 06/05/2024 11:21 AM EST Temperature 36.2 ??C (97.2 ??F) 06/05/2024 11:[address] Respiratory Rate - - Oxygen Saturation 96% 06/05/2024 11:21 AM EST Inhaled Oxygen Concentration - - Weight - - Height - - Body Mass Index - - documented in this encounter Plan of Treatment Upcoming Encounters Date Type Department Care Team (Late st Contact Info) Description 06/06/2024 Procedure Pass [facility], [facility] [address] [address] 06/26/2024 2:00 PM EST Home Care Visit [facility] [address] [place] [phone] Miya Monte, [facility] [address] [place] [address] [email or web address] 06/30/2024 1:15 PM EST Home Care Visit [facility] [address] [place] [phone] Miya Monte, UNDERGROUND MINE MACHINERY MECHANIC [address] [place] [address] [email or web address] 07/01/2024 2:30 PM EST Office Visit [facility] Pulmonary, Allergy and Critical Care Medicine [address] [place] [address] Jose Thakur MD 30 [place] [address] 07/02/2024 2:15 AM EST Home Care Visit [facility] [address] [place] [phone] Miya Monte, [facility] [address] [place] [address] 07/07/2024 3:00 AM EDT Home Care Visit [facility] [address] [place] [phone] Miya Monte, [facility] [address] [place] [address] [email or web address] 07/09/2024 12:45 AM EDT Home Care Visit [facility] [address] [place] [phone] Merly Matos, PT [address] [place] [address] 07/30/2024 3:30 PM EDT Office Visit [facility] [address] [place] [address] [place] [address] Keren Poon, RACKING MACHINE OPERATOR 170 [facility], 2nd [place] [address] 09/18/2024 2:30 PM EDT Office Visit [facility] Infectious Diseases [address] [place] [address] Dana Donald, ACID MIXER [address] [address] 11/26/2024 3:30 PM EDT Office Visit [address] [place] [address] Keren Poon, ORI [address] [place] [address] [email or web address] 12/11/2024 2:00 PM EDT Appointment [facility] 30 [place] [address] Keren Poon, ORI [address] [place] [address] 06/03/2025 2:00 PM EST Office Visit [address] [place] [address] Keren Poon, ORI [address] [place] [phone] [email or web address] documented as of this encounter Visit Diagnoses [...] - Care Plan Visit Details Visit Type -UNDERGROUND MINE MACHINERY MECHANIC HOME VISIT Discipline -Physical Therapy Problems Problem Description Start Date Status Goals [...] goal interventions scheduled/document ed in this visit Goals Goal [...] Planning - Knowledge of No HH - Achieve care management for a safe to home/community discharge from homecare HH - Standard of Care No Interventions Intervention Associated Problem/Goal Status Variance Visit Notes HH - I/E medication management: administration, purpose, dosages, preparation, setup, scheduling, side effects, food/drug interactions, and potential complications as indicated Description: Update patient's copy of medication list as needed. Problem:HH - Medication Management Goal:HH - Safe medication management, avoid unnecessary harm related to medication errors and/or interactions Scheduled - Complete medication review every visit and medication reconciliation as indicated. Pharmacy information: Problem:HH - Medication Management Goal:HH - Safe medication management, avoid unnecessary harm related to medication errors and/or interactions Scheduled HH - Focus of care, teaching completed and plan for next visit Problem:HH - Focus of Care and Teaching Goal: - Communication and collaboration to achieve patient goals Scheduled Visit Notes: Primary Clinical Focus this Visit & Instruction Provided: Todays focus on of hep completion and household mobility. Provided cues as needed for exercise technique Instruction Provided to: patient Response to Instruction/Teachin g: Is fully able to teach back topics as evidenced by deandre. Plan for Next Visit Specific Focus & Education Needed: strength, mobility New Orders: none Updated Discharge Plan: d/c to hep as appropriate Patient reporting having an off day yesterday, questioning if weather was to blame, feeling better today Patient completed the following standing exercises x 10 reps including: june hip abd step outs step backs mini squats STS from recliner using hands patient required only one seated rest today Patient is independent with STS transfers to/from recliner. She ambulated using 4ww with SBA in the home x 200' without rest. Patient reporting feeling steady throughout, no noted LOB. Patient fatigued at end of visit, remains highly motivated to participate in PT HH - I/E management of care in an urgent or emergency (ER) situation: When to call your Home Care Team/911, ER plans, supplies, evacuation, when to contact local ER officials and how to stay informed Problem:HH - Emergency Planning - Knowledge of Goal:HH - Knowledge of options for managing care in the event of an emergency related situation. Scheduled HH - Emergency planning assessment: the emergency plan, supplies needed, emergency contact numbers and an evacuation plan were reviewed Description: Patient and Caregiver is/are knowledgeable of emergency plans. Problem:HH - Emergency Planning - Knowledge of Goal:HH - Knowledge of options for managing care in the event of an emergency related situation. Scheduled HH - Assess vital signs, pulse oximetry, pain, and as indicated, orthostatic vital signs Description: use agency-specific parameters Problem:HH - Standard of Care Goal:HH - Achieve care management for a safe to home/community discharge from homecare Scheduled HH - Assess skin integrity Problem:HH - Standard of Care Goal:HH - Achieve care management for a safe to home/community discharge from homecare Scheduled documented in this encounter Care Teams Computer Programmer Relationship Specialty Start Date End Date Jerseyroldansotero Kerenrex Glaser CNP [address] [place] [address], 2[address] [place] [address] PCP - General Family Medicine 01/31/23 Cash Fernandes MD [address] [place] [address] Gastroenterology 08/23/20 Willi Wells MD [address] [place] [address]_[place] [address] Rheumatology 02/04/24 Jose Thakur MD 30 [place] [address] Radio Despatcher Pulmonary Disease 03/17/24 Dana Rucker FNP 15 [facility], 2nd [place] [address] [email or web address] Nurse Practitioner Infectious Diseases 05/21/24 Jonathan Alvarez MD [address] [place] [address], [address] [place] [address] Urology 05/14/23 Anival Borja MD [address] [place] [address], [address] [place] [address] [email or web address] Neurologist Neurology 01/04/23 Lyndsay Reynoso FNP [address] [facility] [address] [place] [phone] [email or web address] Nurse Practitioner Pain Medicine 05/27/22 Gutierrez Pittman MD 40 [place] [phone] Steel Layout Worker Cardiology 05/27/24 documented as of this encounter Additional Source Comments The information contained in this document represents components of the legal health record. It is not the complete legal health record.[facility]
--- OUTSIDE RECORDS SUMMARY | 2024-06-26 09:31 | XMS_ITS | Encounter Summary ---
Author Organization [facility] Address [phone] [place] [address] Care Team Providers Care Alteration Specialist Name Role Phone Cash Fernandes MD Unavailable [phone] Keren Poon [facility] Primary Care Provid er Willi Wells MD Unavailable Jose Thakur MD Unavailable [phone] Dana Rucker SAP TREASURY CONSULTANT Unavailable Jonathan Alvarez MD Unavailable [phone] Anival Borja MD Unavailable [phone] Lyndsay Reynoso SAP TREASURY CONSULTANT Unavailable Gutierrez Pittman MD Unavailable [phone] Reason for Visit * Reason Comments Follow-up Encounter Details Date Type Department Care Team (Late st Contact Info) Description 06/19/2024 2:30 PM EST Office Visit [facility] Infectious Diseases [address], [place] [id number] Dana Rucker FNP [facility] 2nd [place] [address] [email or web address] C. difficile colitis (Primary Dx); Recurrent urinary tract infection Social History Tobacco Use Types Packs/Day Years [...] Sign Reading Time Taken Comments Blood Pressure 140/80 06/19/2024 2:24 PM EST Pulse 86 06/19/2024 2:24 PM EST Temperature 36.7 ??C (98 ??F) 06/19/2024 2:24 PM EST Respiratory Rate - - Oxygen Saturation 98% 06/19/2024 2:24 PM EST Inhaled Oxygen Concentration - - Weight 75.8 kg (167 lb) 06/19/2024 2:24 PM EST Height - - Body Mass Index 30.54 05/27/2024 2:17 PM EST documented in this encounter Progress Notes * Dana Rucker FNP - 06/19/2024 2:30 PM EST History of Present Illness: Opal Juares is a 69 y.o. year-old presenting for follow-up of C diff in a patient with recurrenturinary tract infections who is managed on methenamine with vitamin C. I recommended a longer taperof oral vancomycin at our last appointment. Given pt's history of recurrent UTI, I do not feel she would be a good candidate for fecal transplant. She has not needed to use the standing order for urinalysis with reflex to culture. Pt's contact the office late last week as Opal had some dental work and she had to take 600mg of clindamycin prior to this. She reports that she tolerated the antibiotic well. The following day, however, she had a lot of epigastric pain which resolved after a fair amount of belching, flatus, and two GasX tablets. She did not have any vomiting or diarrhea. Pt reports that she is taking vancomycin every 3 days. She has 2-3 bowel movements daily. Her stools are soft. Pt states they break up/ explode upon flushing. She has not noticed a particularly foulodor with her stool. She feels like this is manageable and normal. She continues with Culturelle twice daily. She will also sometimes drink Kefir. She continues with having a few [employer]-fit gatorades, cranberry juice, and ensure as well. Her appetite is good. She and jeanneband have started getting [employer] meals delivered to their home. She denies any dysuria, urinary urgency, urinary frequency. She denies any vaginal bleeding or discharge. She continues taking methenamine twice daily with vitamin C. She has a follow-up appointment with her urologist next week. She and her wonder if she needs to do a routine urine dip/culture at that appointment if she is feeling otherwise well. Review of Systems: Review of Systems - General ROS: negative for - chills or fever Genito-Urinary ROS: no nausea, vomiting, diarrhea Dermatological ROS: no perirectal irritation Medications: Current Outpatient Medications Ordered in Epic Medication Sig alendronate (FOSAMAX) 70 MG tablet TAKE ONE TABLET BY MOUTH EVERY WEEK azelastine-fluticasone (DYMISTA) 137-50 mcg/spray Boles 1 spray by Each Nare route 2 (two) times a day. benzonatate (TESSALON) 100 MG capsule Take 1 capsule (100 mg total) by mouth 3 (three) times a day as needed for cough. BIOTIN ORAL Take 1 capsule by mouth daily. carvedilol (COREG) 12.5 MG tablet TAKE ONE TABLET BY MOUTH TWICE A DAY WITH MEALS cholecalciferol (VITAMIN D3) 2,000 unit capsule Take 1 Units by mouth daily. cyclobenzaprine (FLEXERIL) 5 MG tablet Take 5 mg by mouth 3 (three) times a day as needed. dicyclomine (BENTYL) 20 mg tablet Take 20 mg by mouth 3 (three) times a day as needed (abdominal pain). diphenhydramine HCl (BENADRYL ORAL) Take by mouth daily as needed. ELIQUIS 5 mg tablet Take 5 mg by mouth 2 (two) times a day. escitalopram oxalate (LEXAPRO) 10 MG tablet take one tablet by mouth every day estradioL (ESTRACE) 0.01 % (0.1 mg/gram) vaginal cream Place 2 g vaginally 2 (two) times a week. Apply to urethra. folic acid (FOLVITE) 1 MG tablet Take 1 tablet by mouth every morning. furosemide (LASIX) 20 MG tablet Take 1 tablet by mouth every morning. lactobacillus rhamnosus, GG, (CULTURELLE) 10 billion cell capsule Take 1 capsule by mouth 2 (two) times a day. levothyroxine (SYNTHROID, LEVOTHROID) 88 MCG tablet take one tablet by mouth every day LORazepam (ATIVAN) 0.5 MG tablet Take 1 tablet (0.5 mg total) by mouth 2 (two) times a day as needed for anxiety. losartan (COZAAR) 25 MG tablet take one tablet by mouth once daily methenamine (HIPREX) 1 gram tablet TAKE ONE TABLET BY MOUTH TWICE A DAY WITH CRANBERRY PILL OR VITAMIN-C FOR UTI PREVENTION. HOLD IF STARTING ABX methotrexate 2.5 MG Oral tablet TAKE 6 TABLETS BY MOUTH EVERY WEEK ondansetron (ZOFRAN-ODT) 4 MG disintegrating tablet DISSOLVE ONE TABLET BY MOUTH EVERY 8 HOURS NEEDED FOR NAUSEA AND VOMITING OXYGEN-AIR DELIVERY SYSTEMS MISC 2 Liter NEEDED (route: Oxygen) potassium chloride SA (KLOR-CON M20) 20 MEQ ER tablet Take 1 tablet (20 mEq total) by mouth 2 (two)times a day. predniSONE (DELTASONE) 2.5 MG tablet Take 2.5 mg by mouth daily. riTUXimab (RITUXAN) 10 mg/mL injection Inject into the vein every 6 (six) months. traMADoL (ULTRAM) 50 mg tablet Take 1 tablet (50 mg total) by mouth every 8 (eight) hours as needed. vancomycin (VANCOCIN) 125 MG capsule Take 1 capsule (125 mg total) by mouth every 3 (three) days. Physical Examination: General: in no acute distress, non-toxic Eyes: Anicteric sclera and no subconjunctival petechiae. ENT: No oral lesions. Lymphatic: No cervical or supraclavicular nodes are palpated. Lungs: No rales, rhonchi, or wheezes. Good air exchange bilaterally. No tachypnea or retractions Cardiac: regular rate and rhythm, normal S1 and S2; no S3 or S4; no murmur, rub, or gallop Abdomen: Soft, nontender, and without hepatosplenomegaly. Bowel sounds present in all quadrants. NoCVA tenderness Musculoskeletal: joint contracture of bilateral hands Skin: No diffuse rash. Neurological: Alert, oriented x 3 Labs: Lab Results Component Value Date WBC 7.03 05/13/2024 RBC 4.46 05/13/2024 HGB 13.1 05/13/2024 HCT 41.2 05/13/2024 PLT 174 05/13/2024 MCV 92.4 05/13/2024 MCH 29.4 05/13/2024 MCHC 31.8 (L) 05/13/2024 RDW 14.6 (H) 05/13/2024 MVP 10.5 05/13/2024 NRBC 0.00 04/09/2014 NRBC 0.00 04/09/2014 NRBCA 0.00 05/13/2024 DIFMET Auto 05/11/2024 NEUT 56.4 05/11/2024 LYMP 20.6 05/11/2024 MON 14.8 (H) 05/11/2024 EOSP 7.3 (H) 05/11/2024 ANEU 3.49 05/11/2024 ALYMP 1.28 05/11/2024 AMONS 0.92 05/11/2024 AEOSN 0.45 05/11/2024 ABASOP 0.02 05/11/2024 BAND 1.0 06/26/2018 IMMGRAN 0.04 05/11/2024 Lab Results Component Value Date NA 145 05/13/2024 K 3.7 05/13/2024 CL 107 05/13/2024 CO2 27 05/13/2024 BUN 5 (L) 05/13/2024 CRE 0.40 (L) 05/13/2024 GLU 129 (H) 05/13/2024 ALB 3.2 (L) 05/09/2024 TP 5.1 (L) 05/09/2024 CA 9.6 05/13/2024 ALKP 62 05/09/2024 TBILI 0.6 05/09/2024 SGOT 25 05/09/2024 SGPT 36 05/09/2024 GLOB 1.9 05/09/2024 GFR 107 05/13/2024 ANION 15 05/13/2024 ALT 23 10/19/2011 PROBLEM LIST Patient Active Problem List Diagnosis Rheumatoid arthritis involving multiple sites Hypertensive disorder Migraine Osteopenia Gastroesophageal reflux disease Endometriosis Bilateral cataracts Paroxysmal A-fib Obstructive sleep apnea, adult Hypothyroidism Major depressive disorder Diverticulosis History of anemia OAB (overactive bladder) Primary osteoarthritis of knees, bilateral Hiatal hernia Esophageal motility disorder Cervical radiculopathy IFG (impaired fasting glucose) Multiple lacunar infarcts Other reduced mobility Mild dementia Occipital neuralgia of left side Anxiety disorder Personal history of urinary (tract) infections Secondary hypercoagulable state Atherosclerosis of aorta Allergic rhinitis Rheumatoid episcleritis Dyspnea on exertion C. difficile colitis Atrophic vaginitis Recurrent urinary tract infection Urinary incontinence Aortic insufficiency ASSESSMENT: Problem List Items Addressed This Visit C. difficile colitis Current Assessment & Plan Pt and have concern about another bout of C diff. She is currently tolerating oral vancomycin once every 3 days. Given her immunocompromised status and history of recurrent urinary tract infection, I think we should continue vancomycin by mouth every 3 days indefinitely. She and her husbandagree with this plan. Reviewed that severe abdominal pain, intractable diarrhea, or signs of dehydration would warrant emergent evaluation. Recurrent urinary tract infection Current Assessment & Plan Continue methenamine with vitamin C along with [...] severe flank pain would warrant emergent evaluation. I personally spent 30 minutes today preparing for the patient, caring for the patient [id number],caring for the patient after the visit, and documenting in the record. I have maintained a long-term, longitudinal relationship with this patient, overseeing care of chronic conditions, including recurrent C diff and frequent UTI. This care relationship has significantly influenced my decision making and treatment plans during today's encounter. documented in this encounter Miscellaneous Notes * Assessment & Plan Note - Dana Rucker FNP - 06/19/2024 3:41 PM EST Associated Problem(s): Recurrent urinary tract infection Continue methenamine with vitamin C along with [...] severe flank pain would warrant emergent evaluation. * Assessment & Plan Note - Dana Rucker FNP - 06/19/2024 3:37 PM EST Associated Problem(s): C. difficile colitis Pt and have concern about another bout of C diff. She is currently tolerating oral vancomycin once every 3 days. Given her immunocompromised status and history of recurrent urinary tract infection, I think we should continue vancomycin by mouth every 3 days indefinitely. She and her husbandagree with this plan. Reviewed that severe abdominal pain, intractable diarrhea, or signs of dehydration would warrant emergent evaluation. documented in this encounter Plan of Treatment Upcoming Encounters Date Type Department Care Team (Late st Contact Info) Description 06/06/2024 Procedure [facility] [address] [place] [address] 06/26/2024 2:00 PM EST Home Care Visit [facility] [address] [place] [phone] Miya Monte, [facility] [address] [place] [address] 06/30/2024 1:15 PM EST [facility] [address] [place] [phone] Miya Monte, BUSINESS ACCOUNT EXECUTIVE [address] [place] [address] [email or web address] 07/01/2024 2:30 PM EST Office Visit [facility] Pulmonary, Allergy and Critical Care Medicine [address] [place] [address] Jose Thakur MD [address] [place] [address] 07/02/2024 2:15 AM EST [facility] Visit [facility] [address] [place] [address] Miya Monte, BUSINESS ACCOUNT EXECUTIVE [address] [place] [address] [email or web address] 07/07/2024 3:00 AM EDT Home Care Visit [facility] [address] [place] [phone] Miya Monte, BUSINESS ACCOUNT EXECUTIVE [address] [place] [address] [email or web address] 07/09/2024 12:45 AM EDT Home Care Visit [facility] [address] [place] [address] Merly Matos, PT [address] [place] [address] 07/30/2024 3:30 PM EDT Office Visit [facility] [address] [place] [address] [place] [address] Keren Poon, SIGNALER [address] [facility], 2nd [place] [address] 09/18/2024 2:30 PM EDT Office Visit [facility] Infectious Diseases [address] [place] [address] Dana Rucker, DIVYA [address] [address] 11/26/2024 3:30 PM EDT Office Visit [address] [place] [address] Keren Poon CNP [address] [place] [address] 12/11/2024 2:00 PM EDT Appointment [facility] [address] [place] [address] Keren Poon CNP [address] [place] [phone] 06/03/2025 2:00 PM EST Office Visit [address] [place] [address] Keren Poon CNP [address] [place] [address] documented as of this encounter Visit Diagnoses Diagnosis C. difficile colitis- Primary Recurrent urinary tract infection Urinary tract infection, site not specified documented in this encounter Additional Health Concerns Assessment Noted Time PHQ-9 Depression Total Score: 5 05/09/19 24 6:55 AM EST PHQ-2 Depression Total Score: 2 05/27/19 25 1:55 PM EST documented as of this encounter Care Teams Alteration Specialist Relationship Specialty Start Date End Date Keren Poon CNP [address] [place] [phone] PCP - General Family Medicine 01/31/23 Cash Fernandes MD [address] [place] [address] [email or web address] Gastroenterology 08/23/20 Willi Wells MD [address] [facility] [address] [address] Rheumatology 02/04/24 Jose Thakur MD [address] [place] [address] [email or web address] Computer Hardware Technician Pulmonary Disease 03/17/24 Dana Rucker FNP 15 [facility], 2nd [place] [address] [email or web address] Nurse Practitioner Infectious Diseases 05/21/24 Jonathan Alvarez MD [address] [place] [address], [address] [place] [address] [email or web address] Urology 05/14/23 Anival Borja MD [address] [place] [address], [address] [place] [address] [email or web address] Neurologist Neurology 01/04/23 Lyndsay Reynoso FNP [address] [facility] [address] [facility] [address] [place] [address] [email or web address] Nurse Practitioner Pain Medicine 05/27/22 Gutierrez Pittman MD [address] [place] [phone] Heel Seat Filler Cardiology 05/27/24 documented as of this encounter Additional Source Comments The information contained in this document represents components of the legal health record. It is not the complete legal health record.[facility]
--- OUTSIDE RECORDS SUMMARY | 2024-06-26 09:31 | XMS_ITS | Encounter Summary ---
Author Organization [facility] Address [address] [place] [address] Care Team Providers Care Fire Department Marine Engineer Name Role Phone Cheryl Calderon MD Primary Care Provider [phone] Encounter Details Date Type Department Care Team (Late st Contact Info) Description 02/16/2019 Orders Only [facility]. Rheumatology [address] [place] [phone] Melanie Aguirre MD [address] [place] [address] Social History Tobacco Use Types Packs/Day Years [...] Comments C-REACTIVE PROTEIN (CRP) - INFLAMMATION Routine 02/16/2019 2:04 PM EDT Rheumatoid arthritis involving multiple sites with positive rheumatoid factor (HCC) VENIPUNCTURE Routine 02/16/2019 2:04 PM EDT Rheumatoid arthritis involving multiple sites with positive rheumatoid factor (HCC) CBC INCLUDES DIFFERENTIAL AND PLATELET COUNT Routine 02/16/2019 2:04 PM EDT Rheumatoid arthritis involving multiple sites with positive rheumatoid factor (HCC) COMPREHENSIVE METABOLIC PANEL WITH GFR Routine 02/16/2019 2:04 PM EDT Rheumatoid arthritis involving multiple sites with positive rheumatoid factor (HCC) documented in this encounter Results * Due to [place] state law, this organization might not be sharing negative HIV tests. * (ABNORMAL) COMPREHENSIVE METABOLIC PANEL WITH GFR (02/16/2019 2:04 PM EDT) Glucose 113(H) 65 - 99 mg/dL [facility] Comment: ? Fasting reference interval For someone without known diabetes, a glucose value between 100 and 125 mg/dL is consistent with prediabetes and should be confirmed with a follow-up test. Urea Nitrogen Blood (BUN) 18 7 - 25 mg/dL [facility] Creatinine 0.66 0.50 - 0.99 mg/dL [facility] Comment: For patients >49 years of age, the reference limit for Creatinine is approximately 13% higher for people identified as -Indian. EGFR 93 > OR = 60 mL/min/1 .73m2 [facility] GFR () 108 > OR = 60 mL/min/1 .73m2 [facility] BUN/Creatinine Ratio NOT APPLICABLE 6 - 22 (calc) [facility] Sodium 141 135 - 146 mmol/L [facility] Potassium 5.3 3.5 - 5.3 mmol/L [facility] Chloride 106 98 - 110 mmol/L [facility] Carbon dioxide 26 20 - 32 mmol/L [facility] Calcium 9.0 8.6 - 10.4 mg/dL [facility] Protein Total (Serum) 5.5(L) 6.1 - 8.1 g/dL [facility] Albumin 3.3(L) 3.6 - 5.1 g/dL [facility] Globulin 2.2 1.9 - 3.7 g/dL (calc) [facility] Albumin/Globulin 1.5 1.0 - 2.5 (calc) [facility] Bilirubin Total 0.3 0.2 - 1.2 mg/dL [facility] Alkaline phosphatase 63 33 - 130 U/L [facility] AST (SGOT) 21 10 - 35 U/L [facility] ALT (SGPT) 18 6 - 29 U/L [facility] 02/16/2019 2:04 PM EDT 02/16/2019 11:45 PM EDT Narrative [facility] - 02/17/2019 5:47 AM EDT Please note that this estimated [...] needs for GFR calculation. Resulting Agency Comment [id number] us Melanie Aguirre MD LABORATORY Final Result Performing Organization Address City/[facility]/ZIP Co de Phone Number [facility] [address] [place] [address] * (ABNORMAL) C-REACTIVE PROTEIN (CRP) - INFLAMMATION (02/16/2019 2:04 PM EDT) Pathologist [facility] C reactive protein 79.2(H) <8.0 mg/L [facility] 02/16/2019 2:04 PM EDT 02/16/2019 11:45 PM EDT Narrative Resulting Agency Comment [id number] us Melanie Aguirre MD LABORATORY Final Result Performing Organization Address [facility] Co de Phone Number [facility] [address] [place] [address] * (ABNORMAL) CBC INCLUDES DIFFERENTIAL AND PLATELET COUNT (02/16/2019 2:04 PM EDT) WBC 10.8 3.8 - 10.8 Thousand/u L [facility] RBC 4.65 3.80 - 5.10 Million/uL [facility] Hemoglobin 12.0 11.7 - 15.5 g/dL [facility] Hematocrit 39.4 35.0 - 45.0 % [facility] MCV 84.7 80.0 - 100.0 fL [facility] MCH 25.8(L) 27.0 - 33.0 pg [facility] MCHC 30.5(L) 32.0 - 36.0 g/dL [facility] RDW 13.4 11.0 - 15.0 % [facility] PLT 385 140 - 400 Thousand/u L [facility] MPV 9.5 7.5 - 12.5 fL [facility] Neutrophils # 9504(H) 1500 - 7800 cells/uL [facility] Lymphocytes # 670(L) 850 - 3900 cells/uL [facility] Monocytes # 583 200 - 950 cells/uL [facility] Eosinophils # 22 15 - 500 cells/uL [facility] Basophils # 22 0 - 200 cells/uL [facility] Neutrophils % 88 % [facility] Lymphocytes % 6.2 % [facility] Monocytes % 5.4 % [facility] Eosinophils % 0.2 % [facility] Basophils % 0.2 % [facility] 02/16/2019 2:04 PM EDT 02/16/2019 11:45 PM EDT Narrative Resulting Agency Comment [id number] us Melanie Aguirre MD LAB SAME DAY RESULT Final Result Performing Organization Address City/[facility]/ZIP Co de Phone Number [facility] [address] [place] [address] * (ABNORMAL) ERYTHROCYTE SEDIMENTATION RATE (ESR), KUNAL (02/16/2019 2:04 PM EDT) Sedimentation Rate Westren (ESR) 72(H) < OR = 30 mm/h [facility] 02/16/2019 2:04 PM EDT 02/16/2019 11:45 PM EDT Narrative Resulting Agency Comment [id number] us Melanie Aguirre MD LAB SAME DAY RESULT Final Result Performing Organization Address City/[facility] Co de Phone Number [facility] [address] [place] [address] documented in this encounter Visit Diagnoses Diagnosis Rheumatoid arthritis involving multiple sites with positive rheumatoid factor (HCC) documented in this encounter Care Teams Fire Department Marine Engineer Relationship Specialty Start Date End Date Cheryl Calderon MD [facility] Adult Medicine [address] [place] [address] PCP - General Internal Medicine 07/17/17 documented as of this encounter
--- OUTSIDE RECORDS SUMMARY | 2024-06-26 09:31 | XMS_ITS | Encounter Summary ---
Author Organization [facility] Address [phone] [facility] [place] [address] Care Team Providers Care Plaster Patternmaker Name Role Phone Cash Fernandes MD Unavailable [phone] Keren Poon [facility] Primary Care Provid er Willi Wells MD Unavailable Jose Thakur MD Unavailable [phone] Dana Rucker CADD TECHNICIAN Unavailable Jonathan Alvarez MD Unavailable [phone] Anival Borja MD Unavailable Lyndsay Reynoso CADD TECHNICIAN Unavailable Gutierrez Pittman MD Unavailable [phone] Reason for Visit * Auth/Cert (Routine) Specialty Diagnoses / Procedures Referred By Contnickie t Referred To Contact Referral ID Status Reason Start Date Expiration Date Visits Re quested Visits Authorized [id number] 1 1 Encounter Details Date Type Department Care Team (Late st Contact Info) Description 06/25/2024 9:15 AM EST Home Care Visit [facility] [address] [place], [place] [phone] Dante Haynes RN [address] [place] [address] [email or web address] SN DISCIPLINE DISCHARGE VISIT Social History Tobacco Use Types Packs/Day [...] st Contact Info) Description 06/06/2024 Procedure Pass [facility] [address] [address] 06/26/2024 2:00 PM EST Home Care Visit [facility] [address] [place] [address] Miya Monte, [facility] [address] [place] [address] [email or web address] 06/30/2024 1:15 PM EST Home Care Visit [facility] [address] [place] [phone] Miya Monte, VISUAL BASIC DEVELOPER [address] [place] [address] [email or web address] 07/01/2024 2:30 PM EST Office Visit [facility] Pulmonary, Allergy and Critical Care Medicine [address] [place] [address] Jose Thakur MD [address] [place] [address] 07/02/2024 2:15 AM EST Home Care Visit [facility] [address] [place] [phone] Miya Monte, VISUAL BASIC DEVELOPER [address] [place] [address] [email or web address] 07/07/2024 3:00 AM EDT Home Care Visit [facility] [address] [place] [phone] Miya Monte, VISUAL BASIC DEVELOPER [address] [place] [address] [email or web address] 07/09/2024 12:45 AM EDT Home Care Visit [facility] [address] [place] [phone] Merly Matos, PT [address] [place] [address] 07/30/2024 3:30 PM EDT Office Visit [facility] [address] [place] [address] [place] [address] Keren Poon, HAND OUTSIDE CUTTER 170 [facility], 2nd [place] [address] 09/18/2024 2:30 PM EDT Office Visit [facility] Infectious Diseases [address] [place] [address] Josefina Ruckerh Leslee, CADD TECHNICIAN 15 [facility], [address] [place] [address] 11/26/2024 3:30 PM EDT Office Visit [facility] [address] [place] [address] Dr [place] [address] Keren Poon, ORI [address] [address] [email or web address] 12/11/2024 2:00 PM EDT Appointment [facility] [address] [place] [address] Keren Poon, ORI [address] [place] [address], [address] [place] [address] [email or web address] 06/03/2025 2:00 PM EST Office Visit [facility] [address] [place] [address] Keren Poon, ORI [address] [place] [address] [email or web address] documented as of this encounter Visit Diagnoses Not on filedocumented in this encounter Additional Health Concerns Assessment Noted Time PHQ-9 Depression Total Score: 5 05/09/19 24 6:55 AM EST PHQ-2 Depression Total Score: 2 05/27/19 25 1:55 PM EST documented as of this encounter Home Health Visit - Care Plan Visit Details Visit Type -SN DISCIPLINE ROMULO BARROSO Discipline -Custodial Problems Problem Description Start Date Status Goals [...] 1 goal linked to scheduled/document ed intervention 3 goal interventions scheduled/document ed in this visit HH - Infection - Actual or Risk of Disciplines: All Active Home Health Disciplines 05/14/2024 Active 1 goal linked to scheduled/document ed intervention 2 goal interventions scheduled/document ed in this visit HH - Falls - Risk of Disciplines: All Active Home Health [...] Fluid volume - Deficit, Risk of Disciplines: Custodial 05/14/2024 Active - 4 problem interventions scheduled/document ed in this visit HH - Skin Integrity - Impaired Disciplines: Custodial Active - 3 problem interventions scheduled/document ed [...] Actual or Risk of No HH - Knowledge and management of fall prevention measures. HH - Falls - Risk of No HH - Achieve care [...] Clinical Focus this Visit & Instruction Provided: Summary of care provided during episode and patient condition at discharge:??Pt. on home care service since 05/14/24 after an acute short term hospitalization at [facility]. Pt presented with abdominal pain and loose bloody stools. PMH of Rheumatoid Arthritis, frequent UTIs, chronic hypoxic respiratory failure, A fib. Pt treated for C. Diff. Pt given ABX IV and oral; IV flagyl and Oral Vancomycin. Pt. progressively feeling better, denies any nausea, pain/abdominal discomfort today, 1-2 formed/soft stools a day, tolerating meals well. Pt. followed up with ID last week and has Vancomycin prescription every 3 days as prophylaxis tx. Patient denies any issue lately, denies any dizziness/chest pain. VSS, with chronic pain to her neck areas which been monitored by pain management clinic. Re-enforcement on deep breathing technique-able to demonstrate, toilet/hand hygiene, diet/hydration and s/s to monitor for and when to call providers/911-verbaliz es understanding. Pt. has follow up with rheumatology tomorrow for Rituxan infusion therapy for RA. Pt. to follow up with ID, PCP, Pulmonology. Patient agrees to get discharge from service today as she is been progressively feeling better and back to her baseline functional level. PCP notified for discharge via case communication through In basket. Progress to goals: Goals met, patient back to baseline functions Instruction Provided to: patient Response to Instruction/Teaching: Is fully able to teach back topics as evidenced by verbalization and demonstration. Plan for Next Visit Specific Focus & Education Needed: discharge today New Orders: Discharged Updated Discharge Plan: Discharged today 06/25/2024 HH - I/E management of care in an urgent or emergency (ER) situation: When to call your Home Care Team/911, ER plans, supplies, evacuation, when to contact local ER officials and how to stay informed Problem: - Emergency Planning - Knowledge of Goal:HH - Knowledge of options for managing care in the event of an emergency related situation. Completed - Emergency planning assessment: the emergency plan, supplies needed, emergency contact numbers and an evacuation plan were reviewed Description: Patient and Caregiver is/are knowledgeable of emergency plans. Problem: - Emergency Planning - Knowledge of Goal:HH - Knowledge of options for managing care in the event of an emergency related situation. Completed HH - Establish an individualized emergency plan: Description: Evacuation Plan is: evacuate Priority Medical Needs are: other: Intemittent O2 A triage code has been assigned. A triage code and emergency plan will be reassessed for continued accuracy. Specific risks based on location: extreme cold/snow and extreme heat An emergency supply list has been provided. Problem: - Emergency Planning - Knowledge of Goal:HH - Knowledge of options for managing care in the event of an emergency related situation. Completed HH - I/E infection Description: Patient has C.Diff adhere to infection precautions, infection prevention measures, management of existing infection and take and record temperature daily Problem:HH - Infection - Actual or Risk of Goal:HH - Patient will have no new infection; any new infection that occurs will be identified and treated promptly; existing infection will resolve without complication Completed HH - Assess infection risk and s/s Problem:HH - Infection - Actual or Risk of Goal:HH - Patient will have no new infection; any new infection that occurs will be identified and treated promptly; existing infection will resolve without complication Completed HH - I/E fall prevention measures Description: diagnosis/age related changes/prior history of falls: symptoms and side effects of illness/injury/history of falls placing patient at increased risk for falls. may include management of dizziness/orthostasis, environmental hazards: modification of environment to include clear walkways, secure animals, and move frequently used items within reach, use of equipment, impaired functional mobility: supervision for mobility/activity, appropriate footwear and as indicated safe use of assistive device(s), incontinence: management of incontinence to include safe toileting, need for absorbent garments, address urgency/frequency , pain affecting level of function: impact of pain on an increased risk of falls and poly pharmacy: side effects of medications placing a patient at high risk for a fall Problem: - Falls - Risk of Goal: - Knowledge and management of fall prevention measures. Completed HH - Assess vital signs, pulse oximetry, pain, and as indicated, orthostatic vital signs Description: use agency-specific parameters Problem: - Standard of Care Goal:HH - Achieve care management for a safe to home/community discharge from homecare Completed HH - Assess skin integrity Problem: - Standard of Care Goal:HH - Achieve care management for a safe to home/community discharge from homecare Completed HH - Assess safety needs of patient (other than falls) Problem: - Standard of Care Goal:HH - Achieve care management for a safe to home/community discharge from homecare Completed HH - I/E discharge plan Problem: - Standard of Care Goal:HH - Achieve care management for a safe to home/community discharge from homecare Completed HH - Complete Moses scale at SOC and weekly Problem: - Standard of Care Goal:HH - Achieve care management for a safe to home/community discharge from homecare Completed HH - Assess pain Problem: - Pain Goal:HH - Frequency of pain interfering with patient's activity or movement will improve with activity or movement by discharge. Completed - I/E pain management Problem: - Pain Goal:HH - Frequency of pain interfering with patient's [...] of Completed Instructions provided to: patient Topic: hydration Response to teaching: patient has complete understanding HH - I/E diarrhea management, dehydration s/s Problem:HH [...] Actual or Risk of Impairment Goal:HH - Demonstrate/verbaliz e improvement in depressive symptoms Completed documented in this encounter Care Teams Plaster Patternmaker Relationship Specialty Start Date End Date Keren PoonORI [address] [place] [address] PCP - General Family Medicine 01/31/23 Cash Fernandes MD [address] [place] [address] Gastroenterology 08/23/20 Willi Wells MD [address] [place], [place] [address] [address] Rheumatology 02/04/24 Jose Thakur MD [address] [place] [address] Communications Representative Pulmonary Disease 03/17/24 Dana Rucker FNP [address] [address] Nurse Practitioner Infectious Diseases 05/21/24 Jonathan Alvarez MD [address] [place] [address], [address] [place] [address] Urology 05/14/23 Anival Borja MD [address] [place] [address], [address] [place] [address] [email or web address] Neurologist Neurology 01/04/23 Lyndsay Reynoso FNP 10 [facility] [address] [place] [address] [email or web address] Nurse Practitioner Pain Medicine 05/27/22 Gutierrez Pittman MD [address] [place] [phone] Production Engine Repairer Cardiology 05/27/24 documented as of this encounter Additional Source Comments The information contained in this document represents components of the legal health record. It is not the complete legal health record.[facility]
--- OUTSIDE RECORDS SUMMARY | 2024-06-26 09:31 | XMS_ITS | Encounter Summary ---
Author Organization [facility] Address [address] [place] [address] Care Team Providers Care Retail Merchandiser Name Role Phone Alberto Pacheco Primary Care Provider [phone] Unknown Pcp, Non Rmg Primary Care Provider Unava ilable Charly Saxena Primary Care Provider [phone] Charly Saxena Primary Care Provider [phone] Cheryl Calderon MD Primary Care Provider [phone] Encounter Details Date Type Department Care Team (Late st Contact Info) Description 02/03/2007 Orders Only [facility] Rheumatology [address] [place] [address] Nikkie Moss, RAILROAD HAND [address] [place], [place] [phone] Social History Tobacco Use Types Packs/Day Years [...] of this encounter Results * Due to [place] state law, this organization might not be sharing negative HIV tests. * ASPARTATE AMINOTRANSFERASE (AST), SERUM (02/04/2007) AST (SGOT) 16 10 - 35 U/L [facility] (CLIA# [id number]) 02/04/2007 02/04/2007 7:3 1 PM EDT us Abel Fierro MD LAB SAME DAY RESULT Final Resul t [facility] (CLIA# [id number]) [address] [place] [address] * (ABNORMAL) CBC 5 PART DIFF (02/04/2007) WHITE BLOOD COUNT 9.7 3.8 - 10.8 THOUS/UL [facility] (CLIA# [id number]) RBC 5.08 3.80 - 5.10 MIL/UL [facility] (CLIA# [id number]) Hemoglobin 15.4 11.7 - 15.5 G/DL [facility] (CLIA# [id number]) HCT (HEMATOCRIT) 45.3(H) 35.0 - 45.0 % [facility] (CLIA# [id number]) MCV 89.2 80.0 - 100.0 FL [facility] (CLIA# [id number]) MCH 30.4 27.0 - 33.0 PG [facility] (CLIA# [id number]) MCHC 34.1 32.0 - 36.0 G/DL [facility] (CLIA# [id number]) BAND % 0 0 - 5 % [facility] (CLIA# [id number]) NEUTROPHIL % 84(H) 48 - 75 % [facility] (CLIA# [id number]) LYMPHOCYTE % 10(L) 17 - 40 % [facility] (CLIA# [id number]) MONOCYTE % 6 0 - 14 % [facility] (CLIA# [id number]) EOSINOPHIL % 0 0 - 5 % [facility] (CLIA# [id number]) BASOPHIL % 0 0 - 3 % [facility] (CLIA# [id number]) ATYPICAL LYMPHOCYTE % 0 0 - 5 % [facility] (CLIA# [id number]) PLATELETS 392 140 - 400 THOUS/UL [facility] (CLIA# [id number]) BANDS # 0 0 - 750 CELLS/MCL [facility] (CLIA# [id number]) NEUTROPHILS # 8148(H) 1500 - 7800 CELLS/MCL [facility] (CLIA# [id number]) LYMPHOCYTES # 970 850 - 3900 CELLS/MCL [facility] (CLIA# [id number]) MONOCYTES # 582 200 - 950 CELLS/MCL [facility] (CLIA# [id number]) EOSINOPHILS # 0(L) 15 - 550 CELLS/MCL [facility] (CLIA# [id number]) BASOPHILS # 0 0 - 200 CELLS/MCL [facility] (CLIA# [id number]) ATYPICAL LYMPHOCYTES # 0 0 - 200 /UL [facility] (CLIA# [id number]) RDW 14.6 11.0 - 15.0 % [facility] (CLIA# [id number]) MPV 7.6 7.5 - 11.5 FL [facility] (CLIA# [id number]) 02/04/2007 02/04/2007 7:3 1 PM EDT us Abel Fierro MD LAB SAME DAY RESULT Final Resul [facility] (CLIA# [id number]) [address] [place] [address] documented in this encounter Visit Diagnoses Diagnosis RHEUMATOID ARTHRITIS- Primary Rheumatoid arthritis documented in this encounter Care Teams Retail Merchandiser Relationship Specialty Start Date End Date Alberto Pacheco [address] [place] [phone] PCP - General 07/19/08 05/24/13 Unknown Pcp, Non Rmg PCP - General 06/30/08 07/18/08 Charly Saxena [address] [address] PCP - General 01/18/06 06/29/08 Charly Saxena [address] [place] [address] PCP - General Internal Medicine 05/25/13 07/16/[address] [facility] Adult Medicine [address] [place] [address] PCP - General Internal Medicine 07/17/17 documented as of this encounter
--- OUTSIDE RECORDS SUMMARY | 2024-06-26 09:31 | XMS_ITS | Encounter Summary ---
Author Organization [facility] Address [phone] [place] [address] Care Team Providers Care Willow Specialists Name Role Phone Cash Fernandes MD Unavailable [phone] Keren Poon ELECTRICAL LINEMAN Primary Care Provid er Willi Wells MD Unavailable Jose Thakur MD Unavailable Dana Rucker MEDICAL RESEARCH ASSISTANT Unavailable [phone] Jonathan Alvarez MD Unavailable [phone] Anival Borja MD Unavailable Lyndsay Reynoso MEDICAL RESEARCH ASSISTANT Unavailable Gutierrez Pittman MD Unavailable [phone] Reason for Visit * Reason Comments Medication Refill Encounter Details Date Type Department Care Team (Late st Contact Info) Description 06/10/2024 Refill [facility] [address] [place] [address] Dr [place] [phone] Keren Poon, ELECTRICAL LINEMAN 170 [facility], 2nd [place] [phone] [email or web address] Medication Refill Social History Tobacco Use Types Packs/Day Years [...] PM EDT documented as of this encounter Progress Notes * Maddie Mariano MA - 06/11/2024 7:58 AM EST Rx Care Gap Status - Instructions for Clinical Staff (prescriber discretion applies): n/a Visit Info Last visit: 05/27/2024 Keren Poon CNP - Family Medicine [facility] > Requested f/u: Return in about 6 months (around 11/24/2024) for Next scheduled follow up. Upcoming visit: 07/30/2024 Keren Poon CNP - Family Medicine [facility] ACTIONS TAKEN BY Maddie Mariano MA - Refill protocol passed: no action needed. AV Nicole Blockers Rx Protocol (on HTN Registry) Criteria met; renew for up to 12 months.- carvedilol Visit in the past 14 months: Yes Clinical criteria: - BP within last 6 months: 132/90 on 06/09/2024 - Last HR: 79 on 06/09/2024 documented in this encounter Plan of Treatment Upcoming Encounters Date Type Department Care Team (Late st Contact Info) Description 06/06/2024 Procedure Pass [facility], [address] [address] 06/26/2024 2:00 PM EST Home [facility] Visit [facility] [address] [place] [phone] Miya Monte, RAISE DRILLER [address] [place] [address] 06/30/2024 1:15 PM EST Home Care Visit [facility] [address] [place] [phone] Miya Monte, RAISE DRILLER [address] [place] [address] 07/01/2024 2:30 PM EST Office Visit [facility] Pulmonary, Allergy and Critical Care Medicine [address] [place] [address] Jose Thakur MD [address] [place] [address] 07/02/2024 2:15 AM EST Home Care Visit [facility] [address] [place] [address] Miya Monte, [facility] [address] [place] [address] 07/07/2024 3:00 AM EDT Home Care Visit [facility] [address] [place] [address] Miya Monte, RAISE DRILLER [address] [place] [address] 07/09/2024 12:45 AM EDT Home Care Visit [facility] [address] [place] [phone] Merly Matos, PT [address] [place] [address] 07/30/2024 3:30 PM EDT Office Visit [address] [place] [address] Keren Poon, ORI [address] [place] [address] 09/18/2024 2:30 PM EDT Office Visit [facility] Infectious Diseases [address] [place] [address] Dana Rucker, MEDICAL RESEARCH ASSISTANT 15 [facility], [address] [place] [address] 11/26/2024 3:30 PM EDT Office Visit [address] [place] [address] Keren Poon, ORI [address] [place] [address] 12/11/2024 2:00 PM EDT Appointment [address] [address] Keren Poon, ORI [address] [place] [address] 06/03/2025 2:00 PM EST Office Visit [address] [place] [address] Keren Poon, ORI [address] [place] [address] documented as of this encounter Visit Diagnoses Not on filedocumented in this encounter Additional Health Concerns Assessment Noted Time PHQ-9 Depression Total Score: 5 05/09/19 24 6:55 AM EST PHQ-2 Depression Total Score: 2 05/27/19 25 1:55 PM EST documented as of this encounter Care Teams Willow Specialists Relationship Specialty Start Date End Date Keren Poon, ELECTRICAL LINEMAN [address] [place] [address] 2[address] [place] [address] PCP - General Family Medicine 01/31/23 Cash Fernandes MD [address] [place] [address] Gastroenterology 08/23/20 Willi Wells MD [address] [place] [address]_[place] [address] Rheumatology 02/04/24 Jose Thakur MD [address] [place] [address] Lidar Scientist Pulmonary Disease 03/17/24 Dana Rucker FNP 15 [facility], [address] [place] [address] Nurse Practitioner Infectious Diseases 05/21/24 Jonathan Alvarez MD [facility], [address] [place] [address] Urology 05/14/23 Anival Borja MD [address] [place] [address], [address] [place] [address] Neurologist Neurology 01/04/23 Lyndsay Reynoso FNP [address] [place] [address] [address] [place] [address] [email or web address] Nurse Practitioner Pain Medicine 05/27/22 Gutierrez Pittman MD [address] [place] [phone] Engineering Illustrator Cardiology 05/27/24 documented as of this encounter Additional Source Comments The information contained in this document represents components of the legal health record. It is not the complete legal health record.[facility]
--- OUTSIDE RECORDS SUMMARY | 2024-06-26 09:31 | XMS_ITS | Encounter Summary ---
Author Organization [facility] Address [phone] [facility] [place] [address] Care Team Providers Care Tire Builder Heavy Service Name Role Phone Cash Fernandes MD Unavailable [phone] Keren Poon [facility] Primary Care Provid er Willi Wells MD Unavailable Jose Thakur MD Unavailable [phone] Dana Rucker TECHNICAL OPERATOR Unavailable Jonathan Alvarez MD Unavailable [phone] Anival Borja MD Unavailable [phone] Lyndsay Reynoso TECHNICAL OPERATOR Unavailable Gutierrez Pittman MD Unavailable [phone] Encounter Details Date Type Department Care Team (Late st Contact Info) Description 05/13/2024 Procedure Pass [facility] Endoscopy Admitting Dept Virtual Department [address] [place] [address] [id number] Social History Tobacco Use Types Packs/Day Years [...] st Contact Info) Description 06/06/2024 Procedure Pass [facility], [facility]- [address] [address] 06/26/2024 2:00 PM EST [facility] [address] [place] [phone] Miya Monte, [address] [address] [email or web address] 06/30/2024 1:15 PM EST Home Care Visit [facility] [address] [place] [phone] Miya Monte, [facility] [address] [place] [address] [email or web address] 07/01/2024 2:30 PM EST Office Visit [facility] Pulmonary, Allergy and Critical Care Medicine [address] [place] [address] Jose Thakur MD [address] [place] [address] [email or web address] 07/02/2024 2:15 AM EST [facility] [address] [place] [phone] Miya Monte, CORPORATE COMMUNICATIONS ASSOCIATE [address] [place] [address] 07/07/2024 3:00 AM EDT Home Care Visit [facility] [address] [place] [address] Miya Monte, CORPORATE COMMUNICATIONS ASSOCIATE [address] [place] [address] 07/09/2024 12:45 AM EDT Home Care Visit [facility] 30 [place] [address] Merly Matos, PT [address] [place] [address] 07/30/2024 3:30 PM EDT Office Visit [address] [place] [address] Keren Poon, TELEPHONE LINES REPAIRER [address] [address] 09/18/2024 2:30 PM EDT Office Visit [facility] Infectious Diseases 22 [place] [address] Dana Rucker, TECHNICAL OPERATOR [address] [address] 11/26/2024 3:30 PM EDT Office Visit [address] [place] [address] Keren Poon, TELEPHONE LINES REPAIRER [address] [address] 12/11/2024 2:00 PM EDT Appointment [facility] 30 [place] [address] Keren Poon, ORI [address] [address] 06/03/2025 2:00 PM EST Office Visit [facility] [address] [place] [address] [place] [address] Keren Poon CNP [address] [place] [address] documented as of this encounter Visit Diagnoses Not on filedocumented in this encounter Additional Health Concerns Infection Onset Date Last Indicated Resolved Time C. diff 04/10/2024 05/07/2024 06/06/2024 1:21 AM EST Assessment Noted Time PHQ-9 Depression Total Score: 5 05/09/19 6:55 AM EST PHQ-2 Depression Total Score: 2 05/09/19 6:55 AM EST documented as of this encounter Care Teams Tire Builder Heavy Service Relationship Specialty Start Date End Date Keren Poon, ORI [address] [place] [address] PCP - General Family Medicine 01/31/23 Cash Fernandes MD [address] [place] [address] Gastroenterology 08/23/20 Willi Wells MD [address] [place] [address]_[place] [address] Rheumatology 02/04/24 Jose Thakur MD 30 [place] [address] Copying Machine Repairer Pulmonary Disease 03/17/24 Dana Rucker FNP 15 [facility], 2nd [place] [address] Nurse Practitioner Infectious Diseases 05/21/24 [place] [address] [place] [address], [address] [place] [address] Urology 05/14/23 Anival Borja MD [address] [place] [address], [address] [place] [address] Neurologist Neurology 01/04/23 Lyndsay Reynoso FNP 10 [facility] [address] [place] [address] [email or web address] Nurse Practitioner Pain Medicine 05/27/22 Gutierrez Pittman MD 40 [place] [address] Ict Quality Assurance Engineer Cardiology 05/27/24 documented as of this encounter Additional Source Comments The information contained in this document represents components of the legal health record. It is not the complete legal health record.[facility]
--- OUTSIDE RECORDS SUMMARY | 2024-06-26 09:31 | XMS_ITS | Encounter Summary ---
Author Organization [facility] Address [phone] [facility] [place] [address] Care Team Providers Care Industrial Hire Sales Assistant Name Role Phone Cash Fernandes MD Unavailable [phone] Keren Poon [facility] Primary Care Provid er Willi Wells MD Unavailable Jose Thakur MD Unavailable [phone] Dana Rucker MINT WAFER DEPOSITOR Unavailable [phone] Jonathan Alvarez MD Unavailable [phone] Anival Borja MD Unavailable [phone] Lyndsay Reynoso MINT WAFER DEPOSITOR Unavailable Gutierrez Pittman MD Unavailable [phone] Reason for Visit * Auth/Cert (Routine) Specialty Diagnoses / Procedures Referred By Contnickie t Referred To Contact Referral ID Status Reason Start Date Expiration Date Visits Re quested Visits Authorized [id number] 1 1 Encounter Details Date Type Department Care Team (Late st Contact Info) Description 06/02/2024 10:15 AM EST Home Care Visit [facility] 30 [place], [place] [phone] Miya Monte, ENGAGEMENT QUALITY CONSULTANT [address] [place] [address] [email or web address] ENGAGEMENT QUALITY CONSULTANT HOME VISIT Social History Tobacco Use Types [...] st Contact Info) Description 06/06/2024 Procedure Pass [address] [address] 06/26/2024 2:00 PM EST Home Care Visit [facility] [address] [place] [address] Miya Monte, ENGAGEMENT QUALITY CONSULTANT 168 [place] [address] 06/30/2024 1:15 PM EST Home Care Visit [facility] [address] [place] [address] Miya Monte, ENGAGEMENT QUALITY CONSULTANT 168 [place] [address] [email or web address] 07/01/2024 2:30 PM EST Office Visit [facility] Pulmonary, Allergy and Critical Care Medicine [address] [place] [address] Jose Thakur MD [address] [place] [address] 07/02/2024 2:15 AM EST Home Care Visit [facility] 30 [place] [address] Miya Monte, ENGAGEMENT QUALITY CONSULTANT 168 [place] [address] 07/07/2024 3:00 AM EDT Home Care Visit [facility] 30 [place] [address] Miya Monte, ENGAGEMENT QUALITY CONSULTANT 168 [place] [address] 07/09/2024 12:45 AM EDT Home Care Visit [facility] [address] [place] [address] Merly Matos, PT 168 [place] [address] 07/30/2024 3:30 PM EDT Office Visit [address] [place] [address] Keren Poon, EDGE BANDING MACHINE OFFBEARER [address] [address] 09/18/2024 2:30 PM EDT Office Visit [facility] Infectious Diseases 22 [place] [address] Dana Rucker, MINT WAFER DEPOSITOR [address] [address] 11/26/2024 3:30 PM EDT Office Visit [address] [place] [address] Keren Poon, EDGE BANDING MACHINE OFFBEARER [address] [place] [address] [email or web address] 12/11/2024 2:00 PM EDT Appointment [facility], [facility] 30 [place] [place] [address] Keren Poon, ORI 170 [facility], 2nd Floor [place] [address] [email or web address] 06/03/2025 2:00 PM EST Office Visit [facility] [address] [place] [address] Keren Poon, ORI 170 [facility], 2nd [facility] [place] [address] [email or web address] documented as of this encounter Visit Diagnoses [...] - Care Plan Visit Details Visit Type -ENGAGEMENT QUALITY CONSULTANT HOME VISIT Discipline -Physical Therapy Problems Problem [...] scheduled/document ed in this visit HH - Mobility and Activity Tolerance - Impaired Disciplines: Physical Therapy 05/22/2024 Active 1 goal linked to scheduled/document ed intervention 1 goal intervention scheduled/document ed in this visit Goals Goal Associated Problem Outcome Goal Met? Visit Notes HH - Safe medication management, avoid unnecessary harm related to medication errors and/or interactions HH - Medication Management No HH - Communication and collaboration to achieve patient goals HH - Focus of Care and Teaching Progressing No HH - Knowledge of options for managing care in the event of an emergency related situation. HH - Emergency Planning - Knowledge of No HH - Achieve care management for a safe to home/community discharge from homecare HH - Standard of Care No HH - Demonstrate maximum mobility and activity level for safe function Description: Physical therapy Goals: Patient will demonstrate I with HEP 90% of accuracy by 06-13-24 Patient will note increased endurance as evidenced by ability to ambulate 150' with 2 WW without rest by 06-13-24 Patient will note increased strength in LE's to 4/5 to increase ease of transfers by 06-13-24 Patient will ascend and descend 3 steps to exit home with supervision by 06-13-24 Patient will note decreased fall risk as evidenced by improved score on Tinetti Gait and Balance Assessment to >19/28 by 06-13-24 HH - Mobility and Activity Tolerance - Impaired Progressing No Interventions Intervention Associated Problem/Goal Status Variance Visit Notes HH - Complete medication review every visit and medication reconciliation as indicated. Pharmacy information: Problem:HH - Medication Management Goal:HH - Safe medication management, avoid unnecessary harm related to medication errors and/or interactions Completed - I/E medication management: administration, purpose, dosages, [...] Visit & Instruction Provided: Todays focus on progression of hep and household mobility. Provided cues as needed for exercise technique Instruction Provided to: patient Response to Instruction/Teachin g: Is fully able to teach back topics as evidenced by demo. Plan for Next Visit Specific Focus & Education Needed: strength, mobility New Orders: none Updated Discharge Plan: d/c to hep as appropriate Patient reporting doing well, trying to exercise daily Patient completed the following stanidng exercises x 10 reps including: june hip abd step outs step backs mini squats STS from recliner using hands Seated rest as needed after 2 exercises Patient is independent with STS transfers to/from recliner. She ambulated using 4ww with SBA wihtin the home, increasing her distance to 200' without rest. Patient reporting feeling steady throughout, no noted LOB. Following standing exercises she expressed that she felt encouraged having been able to complete, although noting fatigue following STS x 10 at end of visit. HH - I/E management of care in an urgent or emergency (ER) situation: When to call your Home Care Team/1, ER plans, supplies, evacuation, when to contact [...] home/community discharge from homecare Completed HH - Therapeutic interventions, as indicated: Description: balance training, gait/stair training, therapeutic exercise/home exercise program, transfer training, including bathroom transfers and other: endurance activities, fall prevention. Problem:HH - Mobility and Activity Tolerance - Impaired Goal:HH - Demonstrate maximum mobility and activity level for safe function Completed documented in this encounter Care Teams Industrial Hire Sales Assistant Relationship Specialty Start Date End Date Keren Poon CNP [address] [place] [address], 2nd [place] [address] PCP - General Family Medicine 01/31/23 Cash Fernandes MD 10 [place] [address] [email or web address] Gastroenterology 08/23/20 Willi Wells MD [address] Vin[address]_[place] [address] Rheumatology 02/04/24 Jose Thakur MD 30 [place] [address] [email or web address] Shot Bagger Pulmonary Disease 03/17/24 Dana Rucker FNP 15 [facility], 2nd [place] [address] [email or web address] Nurse Practitioner Infectious Diseases 05/21/24 Jonathan Alvarez MD [address] [place] [address], [address] [place] [address] [email or web address] Urology 05/14/23 Anival Borja MD [address] [place] [address], [address] [place] [address] [email or web address] Neurologist Neurology 01/04/23 Lyndsay Reynoso FNP [address] [place] [address] [email or web address] Nurse Practitioner Pain Medicine 05/27/22 Gutierrez Pittman MD [address] [place] [phone] R D Internship Cardiology 05/27/24 documented as of this encounter Additional Source Comments The information contained in this document represents components of the legal health record. It is not the complete legal health record.[facility]
--- OUTSIDE RECORDS SUMMARY | 2024-06-26 09:31 | XMS_ITS | Encounter Summary ---
Author Organization [facility] Address [phone] [facility] [place] [address] Care Team Providers Care Wool Hat Hydraulicker Name Role Phone Cash Fernandes MD Unavailable [phone] Keren Poon [facility] Primary Care Provid er Willi Wells MD Unavailable Jose Thakur MD Unavailable [phone] Dana Rucker CLASSIFIER Unavailable [phone] Jonathan Alvarez MD Unavailable [phone] Anival Borja MD Unavailable Lyndsay Reynoso CLASSIFIER Unavailable Gutierrez Pittman MD Unavailable [phone] Reason for Visit * Auth/Cert (Routine) Specialty Diagnoses / Procedures Referred By Contnickie t Referred To Contact Referral ID Status Reason Start Date Expiration Date Visits Re quested Visits Authorized [id number] 1 1 Encounter Details Date Type Department Care Team (Late st Contact Info) Description 06/02/2024 9:00 AM EST Home Care Visit [facility] [address] [place], [place] [phone] Dante Haynes RN [address] [place] [address] [email or web address] SN HOME VISIT Social History Tobacco Use [...] Sign Reading Time Taken Comments Blood Pressure 134/78 06/02/2024 9:33 AM EST Pulse 76 06/02/2024 9:33 AM EST Temperature 36.3 ??C (97.3 ??F) 06/02/2024 9:33 AM ES T Respiratory Rate 20 06/02/2024 9:33 AM EST Oxygen Saturation 96% 06/02/2024 9:33 AM EST Inhaled Oxygen Concentration - - Weight - - Height - - Body Mass Index - - documented in this encounter Plan of Treatment Upcoming Encounters Date Type Department Care Team (Late st Contact Info) Description 06/06/2024 Procedure Pass [facility], [facility]- [address] [address] 06/26/2024 2:00 PM EST Home Care Visit [facility] [address] [place] [address] Miya Monte, [facility] [address] [place] [address] [email or web address] 06/30/2024 1:15 PM EST Home Care Visit [facility] [address] [place] [phone] Miya Monte, INSURANCE ADJUSTER [address] [place] [address] [email or web address] 07/01/2024 2:30 PM EST Office Visit [facility] Pulmonary, Allergy and Critical Care Medicine [address] [place] [address] Jose Thakur MD 30 [place] [address] 07/02/2024 2:15 AM EST Home Care Visit [facility] [address] [place] [phone] Miya Monte, INSURANCE ADJUSTER [address] [place] [address] [email or web address] 07/07/2024 3:00 AM EDT Home Care Visit [facility] [address] [place] [phone] Miya Monte, INSURANCE ADJUSTER [address] [place] [address] [email or web address] 07/09/2024 12:45 AM EDT Home Care Visit [facility] [address] [place] [phone] Merly Matos, PT [address] [place] [address] 07/30/2024 3:30 PM EDT Office Visit [facility] [address] [place] [address] [place] [address] Keren Poon, DOOR PERSON 170 [facility], 2nd [place] [address] 09/18/2024 2:30 PM EDT Office Visit [facility] Infectious Diseases [address] [place] [address] Dana Rucker, CLASSIFIER 15 [facility], 2nd [place] [address] 11/26/2024 3:30 PM EDT Office Visit [facility] [address] [place] [address] Dr [place] [address] Keren Poon, ORI 170 [facility], [address] [place] [address] [place] [address] [email or web address] 12/11/2024 2:00 PM EDT Appointment [facility] 30 [place] [address] Keren Poon, ORI [address] [place] [address], [address] [place] [address] [email or web address] 06/03/2025 2:00 PM EST Office Visit [address] [place], [place] [address] Keren Poon, ORI [address] [place] [address] [email or web address] documented as of this encounter Visit Diagnoses [...] Details Visit Type -SN HOME VISIT Discipline -Senior Care Problems Problem Description Start Date Status Goals [...] Fluid volume - Deficit, Risk of Disciplines: Senior Care 05/14/2024 Active - 4 problem interventions scheduled/document ed in this visit HH - Skin Integrity - Impaired Disciplines: Senior Care Active - 3 problem interventions scheduled/document ed in this visit Goals [...] that doesn't interfere. HH - Pain No Interventions Intervention Associated Problem/Goal Status Variance [...] Focus this Visit & Instruction Provided: Pt. cooperative with assessment/care, VSS, denies any abdominal discomforts during this visit but admits to having cramps with meals when full. I/E on small portion frequent meals along with hydration. Still having small BM's 2-3/day, but formed. No longer loose stools. Denies any unusual color changes of stools. Denies any issue. Had injection to her neck last Saturday @ pain management clinic with some effect. Pt. to follow up with Rheumatology for infusion after done with abx treatment. Moisturizing lotion applied to both legs-dry skin notable, with trace edema to Right ankle. Wt. log provided to keep track of daily wt. Pt. still nervous about C-Diff. re-occurrence and want to continue SN visit once a week until done with ABX therapy. Re-enforce on hand hygiene, hygiene after bowel/bladder care- verbalizes understanding. I/E on when to call VNA/[email or web address] balizes understanding Instruction Provided to: patient Response to Instruction/Teaching: Is fully able to teach back topics as evidenced by verbalization. Plan for Next Visit Specific Focus & Education Needed: GI/ assessment/teaching New Orders: no Updated Discharge Plan: once ABX therapy completed. HH - I/E management of care in an urgent or emergency (ER) situation: When to call your Home Care Team/911, ER plans, supplies, evacuation, when to contact local ER officials and how to stay informed Problem:HH - Emergency Planning - Knowledge of Goal:HH - Knowledge of options for managing care in the event of an emergency related situation. Completed HH - Emergency planning assessment: the emergency plan, supplies needed, emergency contact numbers and an evacuation plan were reviewed Description: Patient and Caregiver is/are knowledgeable of emergency plans. Problem:HH - Emergency Planning - Knowledge of Goal:HH - Knowledge of options for managing care in the event of an emergency related situation. Completed HH - Assess infection risk and [...] - Precautions Description: Contact precautions Oxygen precautions Problem:HH - Standard of Care Goal:HH - Achieve care management for a safe to home/community discharge from homecare Completed HH - Assess pain Problem:HH - Pain Goal:HH - Frequency of pain [...] of Completed Instructions provided to: patient Topic: encouraged hydration Response to teaching: patient has complete [...] Problem:HH - Skin Integrity - Impaired Completed documented in this encounter Care Teams Wool Hat Hydraulicker Relationship Specialty Start Date End Date Keren Poon CNP [address] [place] [address], 2nd [place] [address] [email or web address] PCP - General Family Medicine 01/31/23 Cash Fernandes MD [address] [place] [address] Gastroenterology 08/23/20 Willi Wells MD [address] Vinayak [address]_[place] [address] Rheumatology 02/04/24 Jose Thakur MD 30 [place] [address] Parent Partner Pulmonary Disease 03/17/24 Dana Rucker FNP 15 [facility], 2nd [place] [address] Nurse Practitioner Infectious Diseases 05/21/24 Jonathan Alvarez MD [address] [place] [address], [address] [place] [address] Urology 05/14/23 Anival Borja MD [address] [place] [address], [address] [place] [address] Neurologist Neurology 01/04/23 Lyndsay Reynoso FNP [address] [place] [address] [email or web address] Nurse Practitioner Pain Medicine 05/27/22 Gutierrez Pittman MD 40 [place] [address] Clay Dry Press Helper Cardiology 05/27/24 documented as of this encounter Additional Source Comments The information contained in this document represents components of the legal health record. It is not the complete legal health record.[facility]
--- OUTSIDE RECORDS SUMMARY | 2024-06-26 09:31 | XMS_ITS | Encounter Summary ---
Author Organization Located Within [facility] Address [phone] [facility] [place] [address] Care Team Providers Care Coin Counter And Wrapper Name Role Phone Cash Fernandes MD Unavailable [phone] Kreen Poon [facility] Primary Care Provid er Willi Wells MD Unavailable Jose Thakur MD Unavailable Dana Rucker GINNER HELPER Unavailable [phone] Jonathan Alvarez MD Unavailable [phone] Anival Borja MD Unavailable [phone] Lyndsay Reynoso GINNER HELPER Unavailable [phone] Gutierrez Pittman MD Unavailable [phone] Reason for Visit * Auth/Cert (Routine) Specialty Diagnoses / Procedures Referred By Contnickie t Referred To Contact Referral ID Status Reason Start Date Expiration Date Visits Re quested Visits Authorized [id number] 1 1 Encounter Details Date Type Department Care Team (Late st Contact Info) Description 06/18/2024 4:30 PM EST Home Care Visit [facility] [address] [place], [place] [phone] Jordan Matosha, PT [address] [place] [address] [email or web address] PT TFA VISIT Social History Tobacco Use Types Packs/Day [...] Sign Reading Time Taken Comments Blood Pressure 130/74 06/18/2024 3:22 PM EST Pulse 71 06/18/2024 3:22 PM EST Temperature 30.9 ??C (87.6 ??F) 06/18/2024 3:22 PM ES T Respiratory Rate 16 06/18/2024 3:22 PM EST Oxygen Saturation 98% 06/18/2024 3:22 PM EST Inhaled Oxygen Concentration - - Weight - - Height - - Body Mass Index - - documented in this encounter Plan of Treatment Upcoming Encounters Date Type Department Care Team (Late st Contact Info) Description 06/06/2024 Procedure Pass [facility], [facility]- [address] [address] 06/26/2024 2:00 PM EST Home Care Visit [facility] [address] [place] [phone] Miya Monte, [facility] [address] [place] [address] [email or web address] 06/30/2024 1:15 PM EST Home Care Visit [facility] [address] [place] [phone] Miya Monte, FORMING MILL OPERATOR [address] [place] [address] [email or web address] 07/01/2024 2:30 PM EST Office Visit [facility] Pulmonary, Allergy and Critical Care Medicine [address] [place] [address] Jose Thakur MD 30 [place] [address] 07/02/2024 2:15 AM EST Home Care Visit [facility] [address] [place] [address] Miya Monte, FORMING MILL OPERATOR [address] [place] [address] [email or web address] 07/07/2024 3:00 AM EDT Home Care Visit [facility] [address] [place] [phone] Miya Monte, [facility] [address] [place] [address] [email or web address] 07/09/2024 12:45 AM EDT Home Care Visit [facility] [address] [place] [address] Merly Matos, PT [address] [place] [address] 07/30/2024 3:30 PM EDT Office Visit [facility] [address] [place] [address] [place] [address] Keren Poon, FRANCHISE MANAGER 170 [facility], 2nd [place] [address] 09/18/2024 2:30 PM EDT Office Visit [facility] Infectious Diseases [address] [place] [address] Dana Rucker, GINNER HELPER 15 [facility], [address] [place] [address] [email or web address] 11/26/2024 3:30 PM EDT Office Visit [facility] [address] [place] [address] [place] [address] Keren Poon, ORI [address] [address] [email or web address] 12/11/2024 2:00 PM EDT Appointment [address] [address] Keren Poon, ORI [address] [address] [email or web address] 06/03/2025 2:00 PM EST Office Visit [address] [place] [address] Keren Poon, ORI [address] [place] [address] [email or web address] documented as of this encounter Visit Diagnoses Not on filedocumented in this encounter Additional Health Concerns Assessment Noted Time PHQ-9 Depression Total Score: 5 05/09/19 24 6:55 AM EST PHQ-2 Depression Total Score: 2 05/27/19 25 1:55 PM EST documented as of this encounter Home Health Visit - Care Plan Visit Details Visit Type -PT TFA VISIT Discipline -Physical Therapy Problems Problem Description [...] 1 goal linked to scheduled/document ed intervention 4 goal interventions scheduled/document ed in this visit [...] Planning - Knowledge of No HH - Knowledge and management of fall prevention measures. HH - Falls - Risk of No HH - Achieve care management for a safe to home/community discharge from homecare HH - Standard of Care Progressing No HH - Frequency of pain interfering with patient's activity or movement will improve with activity or movement by discharge. Description: Pain will be managed over the course of care. Patient's acceptable level of pain is 1 - pain that doesn't interfere. HH - Pain Progressing No HH - Demonstrate maximum mobility and [...] Clinical Focus this Visit & Instruction Provided: REFERRAL DX: 69-year-old female referred to physical therapy services to [facility] after an acute short term hospitalization at [facility] for c-diff. PAST MEDICAL HX: Rheumatoid Arthritis, frequent UTIs, chronic hypoxic respiratory failure, A fib. PRIOR FUNCTIONAL STATUS (Including Bathing): ambulated with walker in home, used for transport chair for longer distances, basically stayed at home except for MD visits. Patient used 2 L supplemental O2 at night-time. Had private aide to assist with shower, assisted with dressing. Patient reports poor vision - enjoyed audio books. PATIENT CONCERNS: weakness FALLS/SAFETY: no falls in last year ENVIRONMENT/DME: lives in one story condo - 3 steps with 2 railings to enter home with grab bar in threshold. Home equipped with 2 WW, transport chair, walk-in shower with shower seat, grab bars and hand held shower nozzle, cane, 3-1 commode, O2 concentator FAMILY/CAREGIVER SUPPORT: Lives with who is willing and able to assist, has private aide 1 hour 3 days a week to assist with shower INTERDISCIPLINARY: PT/SN OBJECTIVE MEASURES; Tinetti Gait and Balance Assessment - was now 30 day TFA CLINICAL SUMMARY: Patient presents sitting in recliner. Patient alert and oriented x 4. Pleasant and cooperative. Patient reports pain cervical spine 4-5/10. States it has been improving with use of heating pad/medications. Patient reports diarrhea is improving - stools becoming more solid - had 2 BM's yesterday versus 4. Patient transferred sit to stand from recliner with BUE assist. Patient ambulated 60' x 2 to bathroom with 2 WW with SBA - noting slow elder, shuffling gait pattern and wide MAITE. Increased gait distances and improving gait pattern from previous reporting. Pt states she has been much more activity and trying to maintain independence where she can. This week has been vvery busy with appointments- had ultrasound early am today. Patient performing all other trasnfers at a mod ind to stand by level of assistance. Patient noted limited ROM/MMT in BUE - with impaired dexterity - unable to make full grasp due to limited finger flexion at PIP and DIP's, especially in right hand. Patient noting 3+/5 B hip flexion and 4/5 B knee MMT. Patient scored 19/28 on Tinetti Gait and Balance Assessment making her a high risk for falls, dynamic standing balance improving. Patient noting good static standing balance - able to maintain standing unsupported > 10 with EC. Patient reports she feels getting closer to functioning at her baseline level. Recommend continued PT short-term for strengthening, gait training, balance, fall prevention, conditioning and to improve endurance. Patient will be seen 2xwk= 3 weeks dc prior to end of cert period. Care Team updated on treatment plan. Pt in agreement with plan of care Instruction Provided to: patient Response to Instruction/Teaching: Is partially able to teach back topics as evidenced by verbal understanding Plan for Next Visit Specific Focus & Education Needed: progress home program New Orders: HHPT 2x/wk = 3 weeks Updated Discharge Plan: dc to independent home program HH - I/E management of care in [...] emergency related situation. Completed HH - I/E fall prevention measures [...] agency-specific parameters Problem: - Standard of Care Goal: - Achieve care management for a safe to home/community discharge from homecare Completed HH - Assess skin integrity Problem: - Standard of Care Goal: - Achieve care management for a safe to home/community discharge from homecare Completed HH - Assess safety needs of patient (other than falls) Problem: - Standard of Care Goal:HH - Achieve care management for a safe to home/community discharge from homecare Completed - I/E discharge plan Problem: - Standard of Care Goal: - Achieve care management for a safe [...] activity or movement by discharge. Completed - Therapeutic interventions, as indicated: Description: balance training, gait/stair training, therapeutic exercise/home exercise program, transfer training, including bathroom transfers and other: endurance activities, fall prevention. Problem: - Mobility and Activity Tolerance - Impaired Goal:HH - Demonstrate maximum mobility and activity level for safe function Completed This visit -balance training, gait/stair training, therapeutic exercise/home exercise program, transfer training, including bathroom transfers and other: endurance activities, fall prevention. HH - I/E therapeutic function/activity: Description: As indicated: activity promotion and management, functional mobility training, therapeutic exercise and home exercise program, device use. Problem:HH - Mobility and Activity Tolerance - Impaired Goal:HH - Demonstrate maximum mobility and activity level for safe function Completed HH - Assess therapeutic function/activity and need for durable medical equipment Problem:HH - Mobility and Activity Tolerance - Impaired Goal:HH - Demonstrate maximum mobility and activity level for safe function Completed documented in this encounter Care Teams Coin Counter And Wrapper Relationship Specialty Start Date End Date Keren Poon ORI Glaser [address] [place] [address] 2[address] [place] [address] PCP - General Family Medicine 01/31/23 Cash Fernandes MD [address] [place] [address] Gastroenterology 08/23/20 Willi Wells MD [address] [place] [address]_[place] [address] Rheumatology 02/04/24 Jose Thakur MD [address] [place] [address] Android Software Engineer Pulmonary Disease 03/17/24 Daan Rucker FNP [address] [address] Nurse Practitioner Infectious Diseases 05/21/24 Jonathan Alvarez MD [address] [place] [address], [address] [place] [address] Urology 05/14/23 Anival Borja MD [address] [place] [address], [address] [place] [address] [email or web address] Neurologist Neurology 01/04/23 Lyndsay Reynoso FNP [address] [place] [address] [email or web address] Nurse Practitioner Pain Medicine 05/27/22 Gutierrez Pittman MD [address] [place] [phone] Museum Attendant Cardiology 05/27/24 documented as of this encounter Additional Source Comments The information contained in this document represents components of the legal health record. It is not the complete legal health record.Located Within [facility]
--- OUTSIDE RECORDS SUMMARY | 2024-06-26 09:31 | XMS_ITS | Encounter Summary ---
Author Organization [facility] Address [phone] [facility] [email or web address] [address] Care Team Providers Care Acquisition Analyst Name Role Phone Cash Fernandes MD Unavailable [phone] Keren Poon [facility] Primary Care Provid er Willi Wells MD Unavailable Jose Thakur MD Unavailable Dana Rucker TOP FRAME FITTER Unavailable [phone] Jonathan Alvarez MD Unavailable [phone] Anival Borja MD Unavailable Lyndsay Reynoso TOP FRAME FITTER Unavailable [phone] Gutierrez Pittman MD Unavailable [phone] Reason for Visit * Auth/Cert (Routine) Specialty Diagnoses / Procedures Referred By Contnickie t Referred To Contact Referral ID Status Reason Start Date Expiration Date Visits Re quested Visits Authorized [id number] 1 1 Encounter Details Date Type Department Care Team (Late st Contact Info) Description 05/29/2024 11:15 AM EST Home Care Visit [facility] [address] [place], [place] [phone] Miya Monte, BRINE TANK TENDER [address] [place] [address] [email or web address] BRINE TANK TENDER HOME VISIT Social History Tobacco Use Types [...] Sign Reading Time Taken Comments Blood Pressure 108/64 05/29/2024 11:41 AM EST Pulse 78 05/29/2024 11:41 AM EST Temperature 36.1 ??C (97 ??F) 05/29/2024 11:41 AM EST Respiratory Rate - - Oxygen Saturation 96% 05/29/2024 11:41 AM EST Inhaled Oxygen Concentration - - Weight - - Height - - Body Mass Index - - documented in this encounter Plan of Treatment Upcoming Encounters Date Type Department Care Team (Late st Contact Info) Description 06/06/2024 Procedure Pass [address] [address] 06/26/2024 2:00 PM EST Home Care Visit [facility] [address] [place] [phone] Miya Monte, [facility] [address] [place] [address] 06/30/2024 1:15 PM EST Home Care Visit [facility] [address] [place] [phone] Miya Monte, BRINE TANK TENDER [address] [place] [address] [email or web address] 07/01/2024 2:30 PM EST Office Visit [facility] Pul[facility], Allergy and Critical Care Medicine 10 [place] [address] Jose Thakur MD 30 [place] [address] 07/02/2024 2:15 AM EST Home Care Visit [facility] [address] [place] [phone] Miya Monte, BRINE TANK TENDER [address] [place] [address] [email or web address] 07/07/2024 3:00 AM EDT Home Care Visit [facility] [address] [place] [phone] Miya Monte, [facility] [address] [place] [address] [email or web address] 07/09/2024 12:45 AM EDT Home Care Visit [facility] [address] [place] [phone] Merly Matos, PT [address] [place] [address] 07/30/2024 3:30 PM EDT Office Visit [facility] [address] [place] [address] [place] [address] Keren Poon, [facility] 170 [facility], 2nd [place] [address] 09/18/2024 2:30 PM EDT Office Visit [facility] Infectious Diseases [address] [place] [address] Dana Rucker, TOP FRAME FITTER [address] [address] 11/26/2024 3:30 PM EDT Office Visit [address] [place] [address] Keren Poon, ORI [address] [place] [address] [email or web address] 12/11/2024 2:00 PM EDT Appointment [facility] [address] [place] [address] Keren Poon, ORI [address] [place] [address] 06/03/2025 2:00 PM EST Office Visit [address] [place], [place] [address] Keren Poon, ORI [address] [place] [address] [email or web address] documented as of this encounter Visit Diagnoses [...] - Care Plan Visit Details Visit Type -BRINE TANK TENDER HOME VISIT Discipline -Physical Therapy Problems Problem [...] and medication reconciliation as indicated. Pharmacy information: Problem: - Medication Management Goal: - Safe medication management, avoid unnecessary harm related to medication errors and/or interactions Completed - I/E medication management: administration, purpose, dosages, preparation, setup, scheduling, side effects, food/drug interactions, and potential complications as indicated Description: Update patient's copy of medication list as needed. Problem: - Medication Management Goal: - Safe medication management, avoid unnecessary harm related to medication errors and/or interactions Scheduled HH - Focus of care, teaching completed and plan for next visit Problem:HH - Focus of Care and Teaching Goal:HH - Communication and collaboration to achieve patient goals Completed Visit Notes: Primary Clinical Focus this Visit & Instruction Provided: Todays focus on hep progression and household mobility. Provided cues as needed for exercise technique Instruction Provided to: patient Response to Instruction/Teaching : Is fully able to teach back topics as evidenced by janio. Plan for Next Visit Specific Focus & Education Needed: strength, balance, mobility New Orders: none Updated Discharge Plan: d/c to hep as appropriate Patient reporting that she was able to use her cane today to ambulate to/from her doctor's office, went well Patient completed seated exercises x 10 reps including: ankle pumps june hip abd LAQ Standing x 10: june hip abd Standing exercises discontinued due to patient fatigue Patient completed STS to/from recliner with good hand placement and safety. She ambulated household distances using ww with no significant unsteadiness, although visably fatigued following completion of standing exercises when ambulating back to her chair. SBA provided for balance and safety. HH - I/E management of care in [...] Completed documented in this encounter Care Teams Acquisition Analyst Relationship Specialty Start Date End Date Keren Poon CNP [address] [place] [address] 2nd [place] [address] PCP - General Family Medicine 01/31/23 Cash Fernandes MD 10 [place] [address] Gastroenterology 08/23/20 Willi Wells MD [address] [place], [place] [address]Rhe[place] [address] Rheumatology 02/04/24 Jose Thakur MD [address] [place] [address] Spooling Operator Pulmonary Disease 03/17/24 Dana Rucker FNP 15 [facility], [address] [place] [address] Nurse Practitioner Infectious Diseases 05/21/24 Jonathan Alvarez MD [address] [place] [address], [address] [place] [address] Urology 05/14/23 Anival Borja MD [address] [place] [address], [address] [place] [address] Neurologist Neurology 01/04/23 Lyndsay Reynoso FNP 10 [facility] [address] [place] [address] [email or web address] Nurse Practitioner Pain Medicine 05/27/22 Gutierrez Pittman MD 40 [place] [phone] Manager Payer Cardiology 05/27/24 documented as of this encounter Additional Source Comments The information contained in this document represents components of the legal health record. It is not the complete legal health record.[facility]
--- OUTSIDE RECORDS SUMMARY | 2024-06-26 09:31 | XMS_ITS | Encounter Summary ---
Author Organization [facility] Address [phone] Formerly [facility], [facility] [employer] (ServiceCEO) [place] [address] Care Team Providers Care V Belt Builder Name Role Phone Cash Fernandes MD Unavailable [phone] Keren Poon [facility] Primary Care Provid er Willi Wells MD Unavailable Jose Thakur MD Unavailable Dana Rucker SENIOR QC TECHNICIAN Unavailable [phone] Jonathan Alvarez MD Unavailable [phone] Anival Borja MD Unavailable [phone] Lyndsay Reynoso SENIOR QC TECHNICIAN Unavailable Gutierrez Pittman MD Unavailable [phone] Reason for Visit * Auth/Cert (Routine) Specialty Diagnoses / Procedures Referred By Contnickie t Referred To Contact Referral ID Status Reason Start Date Expiration Date Visits Re quested Visits Authorized [id number] 1 1 Encounter Details Date Type Department Care Team (Late st Contact Info) Description 06/24/2024 10:45 AM EST Home Care Visit [facility] [address], [place] [phone] Miya Monte, SALES CONSULTANT [address] [place] [address] [email or web address] SALES CONSULTANT HOME VISIT Social History Tobacco Use [...] Sign Reading Time Taken Comments Blood Pressure 118/78 06/24/2024 10:55 AM EST Pulse 72 06/24/2024 10:55 AM EST Temperature 36.7 ??C (98.1 ??F) 06/24/2024 10:[address] Respiratory Rate - - Oxygen Saturation 96% 06/24/2024 10:55 AM EST Inhaled Oxygen Concentration - - Weight - - Height - - Body Mass Index - - documented in this encounter Plan of Treatment Upcoming Encounters Date Type Department Care Team (Late st Contact Info) Description 06/06/2024 Procedure Pass [facility], [facility]- [address] [address] 06/26/2024 2:00 PM EST Home Care Visit [facility] [address] [place] [phone] Miya Monte, [facility] [address] [place] [address] [email or web address] 06/30/2024 1:15 PM EST Home Care Visit [facility] [address] [place] [phone] Miya Monte, SALES CONSULTANT [address] [place] [address] [email or web address] 07/01/2024 2:30 PM EST Office Visit [facility], Allergy and Critical Care Medicine [address] [place] [address] Jose Thakur MD [address] [place] [address] 07/02/2024 2:15 AM EST Home Care Visit [facility] [address] [place] [phone] Miya Monte, [facility] [address] [place] [address] 07/07/2024 3:00 AM EDT Home Care Visit [facility] [address] [place] [phone] Miya Monte, [facility] [address] [place] [address] [email or web address] 07/09/2024 12:45 AM EDT Home Care Visit [facility] [address] [place] [phone] Merly Matos, PT [address] [place] [address] 07/30/2024 3:30 PM EDT Office Visit [facility] [address] [place] [address] [place] [address] Keren Poon, NURSE TRANSITION 170 [facility], 2nd [place] [address] 09/18/2024 2:30 PM EDT Office Visit [facility] Infectious Diseases [address] [place] [address] Dana Donald, SENIOR QC TECHNICIAN [address] [address] [email or web address] 11/26/2024 3:30 PM EDT Office Visit [address] [place] [address] Keren Poon, ORI [address] [place] [address] [email or web address] 12/11/2024 2:00 PM EDT Appointment [facility] [address] [place] [address] Keren Poon, ORI [address] [place] [address] [email or web address] 06/03/2025 2:00 PM EST Office Visit [address] [place] [address] Keren Poon, ORI [address] [place] [address] [email or web address] documented as of this encounter Visit Diagnoses Not on filedocumented in this encounter Additional Health Concerns Assessment Noted Time PHQ-9 Depression Total Score: 5 05/09/19 24 6:55 AM EST PHQ-2 Depression Total Score: 2 05/27/19 25 1:55 PM EST documented as of this encounter Home Health Visit - Care Plan Visit Details Visit Type -SALES CONSULTANT HOME VISIT Discipline -Physical Therapy Problems [...] to achieve patient goals Completed Visit Notes: Visit Notes: Visit Notes: Primary Clinical Focus this Visit & Instruction Provided: Todays focus on of hep completion and household mobility. Provided cues as needed for exercise technique for max benefit Instruction Provided to: patient Response to Instruction/Teachin g: Is able to teach back topics as evidenced by deandre. Plan for Next Visit Specific Focus & Education Needed: strength, mobility New Orders: none Updated Discharge Plan: d/c to hep as appropriate Patient reporting increased aches and stiffness today, questioning if its weather related Patient completed the following standing exercises x 10 to 15 reps including: june hip abd step outs fwd/bwd steps mini squats no seated rest between exercises STS from recliner, hands on lap, back of legs on chair to steady self 50% of the time Patient is independent with STS transfers, She ambulated using 4ww with SBA in the home roughly 200' without rest, steady gait throughout. Patient fatigued following ambulation and exercise completion, however very motivated to participate in PT visits HH - I/E management of care in an urgent or emergency (ER) situation: When to call your Home Care Team/911, ER plans, supplies, evacuation, when to contact local ER officials and how to stay informed Problem:HH - Emergency Planning - Knowledge of Goal:HH - Knowledge of options for managing care in the event of an emergency related situation. Scheduled - Emergency planning assessment: the emergency plan, [...] Completed documented in this encounter Care Teams V Belt Builder Relationship Specialty Start Date End Date Keren Poon, NURSE TRANSITION [address] [place] [address], [address] [place] [address] PCP - General Family Medicine 01/31/23 Cash Fernandes MD [address] [place] [address] Gastroenterology 08/23/20 Willi Wells MD [address] [place] [address] 304_[place] [address] Rheumatology 02/04/24 Jose Thakur MD [address] [place] [address] [employer] Pulmonary Disease 03/17/24 Dana Rucker FNP 15 [facility], [address] [place] [address] Nurse Practitioner Infectious Diseases 05/21/24 Jonathan Alvarez MD [facility], [address] [place] [address] Urology 05/14/23 Anival Borja MD [address] [place] [address], [address] [place] [address] Neurologist Neurology 01/04/23 Lyndsay Reynoso FNP [address] [place] [address] [address] [place] [address] [email or web address] Nurse Practitioner Pain Medicine 05/27/22 Gutierrez Pittman MD [address] [place] [phone] [facility] 05/27/24 documented as of this encounter Additional Source Comments The information contained in this document represents components of the legal health record. It is not the complete legal health record.[facility]
--- OUTSIDE RECORDS SUMMARY | 2024-06-26 09:31 | XMS_ITS | Encounter Summary ---
Author Organization [facility] Address [phone] [facility] [place] [address] Care Team Providers Care Spike Maker Name Role Phone Cash Fernandes MD Unavailable [phone] Keren Poon [facility] Primary Care Provid er Willi Wells MD Unavailable Jose Thakur MD Unavailable [phone] Dana Rucker FORMS EXAMINER Unavailable [phone] Jonathan Alvarez MD Unavailable [phone] Anival Borja MD Unavailable [phone] Lyndsay Reynoso FORMS EXAMINER Unavailable [phone] Gutierrez Pittman MD Unavailable [phone] Reason for Visit * Auth/Cert (Routine) Specialty Diagnoses / Procedures Referred By Contncikie t Referred To Contact Referral ID Status Reason Start Date Expiration Date Visits Re quested Visits Authorized [id number] 1 1 Encounter Details Date Type Department Care Team (Late st Contact Info) Description 05/27/2024 10:15 AM EST Home Care Visit [facility] [address], [place] [phone] Miya Monte, KNOCKOUT MACHINE OPERATOR [address] [place] [address] [email or web address] KNOCKOUT MACHINE OPERATOR HOME VISIT Social History Tobacco Use Types [...] Sign Reading Time Taken Comments Blood Pressure 132/78 05/27/2024 10:30 AM EST Pulse 73 05/27/2024 10:30 AM EST Temperature 36.4 ??C (97.6 ??F) 05/27/2024 10:[address] Respiratory Rate - - Oxygen Saturation 99% 05/27/2024 10:30 AM EST Inhaled Oxygen Concentration - - Weight - - Height - - Body Mass Index - - documented in this encounter Plan of Treatment Upcoming Encounters Date Type Department Care Team (Late st Contact Info) Description 06/06/2024 Procedure Pass [facility], [facility]- [address] [address] 06/26/2024 2:00 PM EST Home Care Visit [facility] [address] [place] [phone] Miya Monte, [facility] [address] [place] [address] [email or web address] 06/30/2024 1:15 PM EST Home Care Visit [facility] [address] [place] [phone] Miya Monte, KNOCKOUT MACHINE OPERATOR [address] [place] [address] [email or web address] 07/01/2024 2:30 PM EST Office Visit [facility] Allergy [facility] Critical [facility] Medicine [address] [place] [address] Jose Thakur MD [address] [place] [address] 07/02/2024 2:15 AM EST Home Care Visit [facility] [address] [place] [phone] Miya Monte, [facility] [address] [place] [address] 07/07/2024 3:00 AM EDT Home Care Visit [facility] [address] [place] [phone] Miya Monte, [facility] [address] [place] [address] [email or web address] 07/09/2024 12:45 AM EDT Home Care Visit [facility] [address] [place] [phone] Merly Matos, PT [address] [place] [address] 07/30/2024 3:30 PM EDT Office Visit [facility] [address] [place] [address] [place] [address] Keren Poon, POULTRY FARM WORKER 170 [facility], 2nd [place] [address] 09/18/2024 2:30 PM EDT Office Visit [facility] Infectious Diseases [address] [place] [address] Dana Donald, FORMS EXAMINER [address] [address] 11/26/2024 3:30 PM EDT Office Visit [address] [place] [address] Keren Poon, ORI [address] [place] [address] [email or web address] 12/11/2024 2:00 PM EDT Appointment [facility] [address] [place] [address] Keren Poon, ORI [address] [place] [address] 06/03/2025 2:00 PM EST Office Visit [address] [place] [address] Keren Poon, ORI [address] [place] [address] [email or web address] documented as of this encounter Visit [...] - Care Plan Visit Details Visit Type -KNOCKOUT MACHINE OPERATOR HOME VISIT Discipline -Physical Therapy Problems Problem [...] indicated. Pharmacy information: Problem:HH - Medication Management Goal: - Safe medication [...] & Instruction Provided: Todays focus on hep completion and household mobility. Provided cues as needed for exercise technique Instruction Provided to: patient Response to Instruction/Teachin g: Is fully able to teach back topics as evidenced by demo. Plan for Next Visit Specific Focus & Education Needed: strength, balance, mobility New Orders: none Updated Discharge Plan: d/c to hep as appropriate Patient reporting fatigue due to having a shower this morning, has MD appointment this afternoon Patient completed seated exercises x 10 reps including: ankle pumps march hip abd LAQ rowing shoulder rolls Patient completed STS to/from recliner and toilet without assistance, good hand placement and safety. She ambulated household distances using ww with no significant unsteadiness, able to stand unsupported for task completion. Patient continues to fatigue easily during mobility and activity. - I/E management of care in an [...] Completed documented in this encounter Care Teams Spike Maker Relationship Specialty Start Date End Date Keren Poon, POULTRY FARM WORKER [address] [place] [address], [address] [place] [address] PCP - General Family Medicine 01/31/23 Cash Fernandes MD [address] [place] [address] Gastroenterology 08/23/20 Willi Wells MD [address] [place] [address]_[place] [address] Rheumatology 02/04/24 Jose Thakur MD [address] [place] [address] Drying Oven Tender Pulmonary Disease 03/17/24 Dana Rucker FNP 15 [facility], [address] [place] [address] Nurse Practitioner Infectious Diseases 05/21/24 Jonathan Alvaerz MD [address] [place] [address], [address] [place] [address] Urology 05/14/23 Anival Borja MD [address] [place] [address], [address] [place] [address] Neurologist Neurology 01/04/23 Lyndsay Reynoso FNP [address] [place] [address] [address] [place] [address] [email or web address] Nurse Practitioner Pain Medicine 05/27/22 Gutierrez Pittman MD [address] [place] [address] Animal Surgeon Cardiology 05/27/24 documented as of this encounter Additional Source Comments The information contained in this document represents components of the legal health record. It is not the complete legal health record.[facility]
--- OUTSIDE RECORDS SUMMARY | 2024-06-26 09:33 | XMS_ITS | Encounter Summary ---
Author Organization [facility] Address [address] [place] [address] Care Team Providers Care Director Of Accounts Receivable Name Role Phone Alberto Pacheco Primary Care Provider [phone] Charly Saxena Primary Care Provider [phone] Cheryl Calderon MD Primary Care Provider [phone] Encounter Details Date Type Department Care Team (Late st Contact Info) Description 08/21/2010 Orders Only [facility] Rheumatology [address] [place] [address] Abel Fierro MD [address] [place] [address] Social History Tobacco Use Types Packs/Day Years [...] WITH GLOMERULAR FILTRATION RATE, ESTIMATED (EGFR) Routine 08/21/2010 Rheumatoid arthritis (HCC) CBC 5 PART DIFF Routine 08/21/2010 Rheumatoid arthritis (HCC) ALANINE AMINOTRANSFERASE (ALT), SERUM Routine 08/21/2010 Rheumatoid arthritis (HCC) ASPARTATE AMINOTRANSFERASE (AST), SERUM Routine 08/21/2010 Rheumatoid arthritis (HCC) documented in this encounter Results * Due to [place] state law, this organization might not be sharing negative HIV tests. * CREATININE WITH GLOMERULAR FILTRATION RATE, ESTIMATED (EGFR) (08/21/2010) CREATININE 0.71 0.60 - 1.10 MG/DL [facility] GFR > 60 60 AND ABOVE [facility] Comment:UNITS: ML/MIN/1.73 S Q METERS EGFR > 60 60 AND ABOVE [facility] Comment:UNITS: ML/MIN/1.73 S Q METERS 08/21/2010 08/21/2010 9:0 1 PM EDT Narrative [facility] - 08/22/2010 5:28 AM EDT Please note that this estimated [...] Organization Address [facility] Co de Phone Number [facility] [address] [place] [address] * ALANINE AMINOTRANSFERASE (ALT), SERUM (08/21/2010) ALT (SGPT) 37 6 - 40 U/L [facility] 08/21/2010 08/21/2010 9:0 1 PM EDT us Abel Fierro MD LAB SAME DAY RESULT Final Resul t Performing Organization Address City/[facility] Co de Phone Number [facility] [address] [place] [address] * ASPARTATE AMINOTRANSFERASE (AST), SERUM (08/21/2010) AST (SGOT) 27 10 - 35 U/L [facility] 08/21/2010 08/21/2010 9:0 1 PM EDT us Abel Fierro MD LAB SAME DAY RESULT Final Resul t Performing Organization Address City/[facility]/ZIP Co de Phone Number [facility] [address] [place] [address] * (ABNORMAL) CBC 5 PART DIFF (08/21/2010) WHITE BLOOD COUNT 7.1 3.8 - 10.8 THOUS/UL [facility] RBC 5.28(H) 3.80 - 5.10 MIL/UL [facility] Hemoglobin 15.1 11.7 - 15.5 G/DL [facility] HCT (HEMATOCRIT) 46.4(H) 35.0 - 45.0 % [facility] MCV 87.9 80.0 - 100.0 FL [facility] MCH 28.7 27.0 - 33.0 PG [facility] MCHC 32.6 32.0 - 36.0 G/DL [facility] BAND % 0 0 - 5 % [facility] NEUTROPHIL % 73 48 - 75 % [facility] LYMPHOCYTE % 19 17 - 40 % [facility] MONOCYTE % 7 0 - 14 % [facility] EOSINOPHIL % 0 0 - 5 % [facility] BASOPHIL % 1 0 - 3 % [facility] ATYPICAL LYMPHOCYTE % 0 0 - 5 % [facility] PLATELETS 325 140 - 400 THOUS/UL [facility] BANDS # 0 0 - 750 CELLS/MCL [facility] NEUTROPHILS # 5183 1500 - 7800 CELLS/MCL [facility] LYMPHOCYTES # 1349 850 - 3900 CELLS/MCL [facility] MONOCYTES # 497 200 - 950 CELLS/MCL [facility] EOSINOPHILS # 0(L) 15 - 550 CELLS/MCL [facility] BASOPHILS # 71 0 - 200 CELLS/MCL [facility] ATYPICAL LYMPHOCYTES # 0 0 - 200 CELLS/MCL [facility] RDW 13.3 11.0 - 15.0 % [facility] MPV 8.3 7.5 - 11.5 FL [facility] 08/21/2010 08/21/2010 9:0 1 PM EDT us Abel Fierro MD LAB SAME DAY RESULT Final Resul t Performing Organization Address City/[facility]/ZIP Co de Phone Number [facility] [address] [place] [address] documented in this encounter Visit Diagnoses Diagnosis Rheumatoid arthritis(714.0) Rheumatoid arthritis documented in this encounter Care Teams Director Of Accounts Receivable Relationship Specialty Start Date End Date Alberto Pacheco [address] [place] [address] PCP - General 07/19/08 05/24/13 Charly Saxena [facility] [address] [place] [address] PCP - General Internal Medicine 05/25/13 07/16/17 Cheryl Calderon MD [facility] Medicine [address] [place] [address] PCP - General Internal Medicine 07/17/17 documented as of this encounter
--- OUTSIDE RECORDS SUMMARY | 2024-06-26 09:33 | XMS_ITS | Encounter Summary ---
Author Organization [facility] Address [address] [place] [address] Care Team Providers Care Investigative Agent Name Role Phone Alberto Pacheco Primary Care Provider Charly Saxena Primary Care Provider [phone] Cheryl Calderon MD Primary Care Provider [phone] Reason for Visit * Reason Comments E-prescribing Refill Request Encounter Details Date Type Department Care Team ([facility] st Contact Info) Description 10/20/2011 Refill [facility] Rheumatology [address] [place] [address] Abel Fierro MD [address] [place] [address] E-prescribing Refill Request Social History Tobacco Use [...] on filedocumented in this encounter Care Teams Investigative Agent Relationship Specialty Start Date End Date Alberto Pacheco [address] [place] [address] PCP - General 07/19/08 05/24/13 Charly Saxena [facility] [address] [place] [address] PCP - General Internal Medicine 05/25/13 07/16/17 Cheryl Calderon MD [facility] Medicine [address] [place] [address] PCP - General Internal Medicine 07/17/17 documented as of this encounter
--- OUTSIDE RECORDS SUMMARY | 2024-06-26 09:33 | XMS_ITS | Encounter Summary ---
Author Organization [facility] Address [address] [place] [address] Care Team Providers Care Bleach Range Operator Name Role Phone Alberto Pacheco Primary Care Provider [phone] Charly Saxena Primary Care Provider Cheryl Calderon MD Primary Care Provider [phone] Encounter Details Date Type Department Care Team (Late st Contact Info) Description 04/18/2012 Orders Only [facility] Rheumatology [address] [place] [address] Abel Fierro MD [address] [place] [address] Social History Tobacco Use Types Packs/Day Years [...] of this encounter Procedures * Due to [place] state law, this organization might not be sharing negative HIV tests. Procedure Name Priority Date/Time Associated Diagnosis Comments C-REACTIVE PROTEIN (CRP) - INFLAMMATION Routine 04/18/2012 1:37 PM EST Rheumatoid arthritis (HCC) ERYTHROCYTE SEDIMENTATION RATE (ESR) Routine 04/18/2012 1:37 PM EST Rheumatoid arthritis (HCC) CBC INCLUDES DIFFERENTIAL AND PLATELET COUNT Routine 04/18/2012 1:37 PM EST Rheumatoid arthritis (HCC) ALANINE AMINOTRANSFERASE (ALT), SERUM Routine 04/18/2012 1:37 PM EST Rheumatoid arthritis (HCC) ASPARTATE AMINOTRANSFERASE (AST), SERUM Routine 04/18/2012 1:37 PM EST Rheumatoid arthritis (HCC) CREATININE WITH GLOMERULAR FILTRATION RATE, ESTIMATED (EGFR) Routine 04/18/2012 1:37 PM EST Rheumatoid arthritis (HCC) documented in this encounter Results * Due to [place] state law, this organization might not be sharing negative HIV tests. * ERYTHROCYTE SEDIMENTATION RATE (ESR), [place] (04/18/2012 1:37 PM EST) Sedimentation Rate [place] (ESR) 22 < OR = 30 mm/h [facility] Comment:{SED RATE BY MODIFIE D WESTERGREN {[id number]) 04/18/2012 1:37 PM EST 04/18/2012 11:16 PM EST Narrative Resulting Agency Comment [id number] us Abel Fierro MD LAB SAME DAY RESULT Final Resul t Performing Organization Address City/State/[facility] Co de Phone Number [facility] [address] [place] [address] * (ABNORMAL) C-REACTIVE PROTEIN (CRP) - INFLAMMATION (04/18/2012 1:37 PM EST) C reactive protein 1.36(H) <0.80 mg/dL [facility] Comment: {C-REACTIVE PROTEIN {[id number]) Please be advised that patients taking Carboxypenicillins may exhibit falsely decreased C-Reactive Protein levels due to an analytical interference in this assay. 04/18/2012 1:37 PM EST 04/18/2012 11:16 PM EST Narrative Resulting Agency Comment [id number] us Abel Fierro MD LABORATORY Final Result Performing Organization Address [facility] Co de Phone Number [facility] [address] [place] [address] * CREATININE WITH GLOMERULAR FILTRATION RATE, ESTIMATED (EGFR) (04/18/2012 1:37 PM EST) Creatinine 0.77 0.50 - 1.05 mg/dL [facility] Comment: {CREATININE {[id number]) For patients >49 years of age, the reference limit for Creatinine is approximately 13% higher for people identified as -[place]. GFR 86 > OR = 60 mL/min/1. 73m2 [facility] Comment:{eGFR NON-AFR. AMERI CAN {[id number]) GFR () 99 > OR = 60 mL/min/1. 73m2 [facility] Comment:{eGFR AMERIC AN {[id number]) 04/18/2012 1:37 PM EST 04/18/2012 11:16 PM EST Narrative [facility] - 04/19/2012 1:15 AM EST Please note that this estimated [...] needs for GFR calculation. Resulting Agency Comment [id number] us Abel Fierro MD LAB SAME DAY RESULT Final Resul t Performing Organization Address City/[facility] Co de Phone Number [facility] [address] [place] [address] * (ABNORMAL) CBC INCLUDES DIFFERENTIAL AND PLATELET COUNT (04/18/2012 1:37 PM EST) WBC 8.3 3.8 - 10.8 Thousand/ uL [facility] Comment:{WHITE BLOOD CELL CO UNT {[id number]) RBC 5.25(H) 3.80 - 5.10 Million/u L [facility] Comment:{RED BLOOD CELL COUN T {[id number]) Hemoglobin 15.1 11.7 - 15.5 g/dL [facility] Comment:{HEMOGLOBIN {[id number]) Hematocrit 46.5(H) 35.0 - 45.0 % [facility] Comment:{HEMATOCRIT {[id number]) MCV 88.5 80.0 - 100.0 fL [facility] Comment:{MCV {[id number]) MCH 28.7 27.0 - 33.0 pg [facility] Comment:{MCH {[id number]) MCHC 32.5 32.0 - 36.0 g/dL [facility] Comment:{MCHC {[id number]) RDW 13.4 11.0 - 15.0 % [facility] Comment:{RDW {[id number]) PLT 318 140 - 400 Thousand/ uL [facility] Comment:{PLATELET COUNT {[id number]) MPV 8.2 7.5 - 11.5 fL [facility] Comment:{MPV {[id number]) Neutrophils # 4681 1500 - 7800 cells/uL [facility] Comment:{ABSOLUTE NEUTROPHIL S {[id number]) Lymphocytes # 2598 850 - 3900 cells/uL [facility] Comment:{ABSOLUTE LYMPHOCYTE S {[id number]) Monocytes # 805 200 - 950 cells/uL [facility] Comment:{ABSOLUTE MONOCYTES {[id number]) Eosinophils # 199 15 - 500 cells/uL [facility] Comment:{ABSOLUTE EOSINOPHIL S {[id number]) Basophils # 17 0 - 200 cells/uL [facility] Comment:{ABSOLUTE BASOPHILS {[id number]) Neutrophils % 56.4 % [facility] Comment:{NEUTROPHILS {[id number]) Lymphocytes % 31.3 % [facility] Comment:{LYMPHOCYTES {[id number]) Monocytes % 9.7 % [facility] Comment:{MONOCYTES {[id number]) Eosinophils % 2.4 % [facility] Comment:{EOSINOPHILS {[id number]) Basophils % 0.2 % [facility] Comment:{BASOPHILS {[id number]) 04/18/2012 1:37 PM EST 04/18/2012 11:16 PM EST Narrative Resulting Agency Comment [id number] us Abel Fierro MD LAB SAME DAY RESULT Final Resul t Performing Organization Address City/[facility] Co de Phone Number [facility] [address] [place] [address] * ASPARTATE AMINOTRANSFERASE (AST), SERUM (04/18/2012 1:37 PM EST) AST (SGOT) 18 10 - 35 U/L [facility] Comment:{AST {[id number]) 04/18/2012 1:37 PM EST 04/18/2012 11:16 PM EST Narrative Resulting Agency Comment [id number] us Abel Fierro MD LAB SAME DAY RESULT Final Resul t Performing Organization Address [facility] de Phone Number [facility] [address] [place] [address] * ALANINE AMINOTRANSFERASE (ALT), SERUM (04/18/2012 1:37 PM EST) ALT (SGPT) 17 6 - 40 U/L [facility] Comment:{ALT {[id number]) 04/18/2012 1:37 PM EST 04/18/2012 11:16 PM EST Narrative Resulting Agency Comment [id number] us Abel Fierro MD LAB SAME DAY RESULT Final Resul t Performing Organization Address City/[facility] de Phone Number [facility] [address] [place] [address] documented in this encounter Visit Diagnoses Diagnosis Rheumatoid arthritis(714.0) Rheumatoid arthritis documented in this encounter Care Teams Bleach Range Operator Relationship Specialty Start Date End Date Alberto Pacheco [address] [place] [address] PCP - General 07/19/08 05/24/13 Charly Saxena [facility] [address] [place] [address] PCP - General Internal Medicine 05/25/13 07/16/17 Cheryl Calderon MD [address] [address] PCP - General Internal Medicine 07/17/17 documented as of this encounter
--- OUTSIDE RECORDS SUMMARY | 2024-06-26 09:33 | XMS_ITS | Encounter Summary ---
Author Organization [facility] Address [address] [place] [address] Care Team Providers Care Screen Printing Machine Loader Unloader Name Role Phone Alberto Pacheco Primary Care Provider [phone] Charly Saxena Primary Care Provider [phone] Cheryl Calderon MD Primary Care Provider Encounter Details Date Type Department Care Team (Late st Contact Info) Description 05/29/2010 Orders Only [facility] Rheumatology [address] [place] [address] Abel Fierro MD [address] [place] [address] Social History Tobacco Use Types Packs/Day Years [...] of this encounter Procedures * Due to [place] state law, this organization might not be sharing negative HIV tests. Procedure Name Priority Date/Time Associated Diagnosis Comments C-REACTIVE PROTEIN (CRP), QUANTITATIVE, SERUM INFLAMMATION Routine 05/29/2010 Rheumatoid arthritis (HCC) CREATININE WITH GLOMERULAR FILTRATION RATE, ESTIMATED (EGFR) Routine 05/29/2010 Rheumatoid arthritis (HCC) SED RATE ESR Routine 05/29/2010 Rheumatoid arthritis (HCC) CBC 5 PART DIFF Routine 05/29/2010 Rheumatoid arthritis (HCC) ALANINE AMINOTRANSFERASE (ALT), SERUM Routine 05/29/2010 Rheumatoid arthritis (HCC) ASPARTATE AMINOTRANSFERASE (AST), SERUM Routine 05/29/2010 Rheumatoid arthritis (HCC) documented in this encounter Results * Due to [place] state law, this organization might not be sharing negative HIV tests. * SED RATE ESR (05/29/2010) ESR (ERYTHROCYTE SEDIMENTATION RATE) 5 0 - 30 MM/HR [facility] 05/29/2010 05/29/2010 8:2 8 PM EST Abel Fierro MD LAB SAME DAY RESULT Final Resul t Performing Organization Address City/[facility] Co de Phone Number [facility] [address] [place] [address] * C-REACTIVE PROTEIN (CRP), QUANTITATIVE, SERUM INFLAMMATION (05/29/2010) Pathologist [facility] C REACTIVE PROTEIN (CRP) 0.2 0 - 0.7 MG/DL [facility] 05/29/2010 05/29/2010 8:2 8 PM EST Abel Fierro MD LABORATORY Final Result Performing Organization Address [facility] Co de Phone Number [facility] [address] [place] [address] * CREATININE WITH GLOMERULAR FILTRATION RATE, ESTIMATED (EGFR) (05/29/2010) CREATININE 0.62 0.60 - 1.10 MG/DL [facility] GFR > 60 60 AND ABOVE [facility] Comment:UNITS: ML/MIN/1.73 S Q METERS EGFR > 60 60 AND ABOVE [facility] Comment:UNITS: ML/MIN/1.73 S Q METERS 05/29/2010 05/29/2010 8:2 8 PM EST Narrative [facility] - 05/30/2010 5:50 AM EST Please note that this estimated [...] RESULT Final Resul t [facility] [address] [place] [address] * (ABNORMAL) CBC 5 PART DIFF (05/29/2010) WHITE BLOOD COUNT 9.7 3.8 - 10.8 THOUS/UL [facility] RBC 4.65 3.80 - 5.10 MIL/UL [facility] Hemoglobin 13.9 11.7 - 15.5 G/DL [facility] HCT (HEMATOCRIT) 41.7 35.0 - 45.0 % [facility] MCV 89.6 80.0 - 100.0 FL [facility] MCH 29.8 27.0 - 33.0 PG [facility] MCHC 33.3 32.0 - 36.0 G/DL [facility] BAND % 0 0 - 5 % [facility] NEUTROPHIL % 53 48 - 75 % [facility] LYMPHOCYTE % 34 17 - 40 % [facility] MONOCYTE % 10 0 - 14 % [facility] EOSINOPHIL % 2 0 - 5 % [facility] BASOPHIL % 1 0 - 3 % [facility] ATYPICAL LYMPHOCYTE % 0 0 - 5 % [facility] PLATELETS 251 140 - 400 THOUS/UL [facility] BANDS # 0 0 - 750 CELLS/MCL [facility] NEUTROPHILS # 5141 1500 - 7800 CELLS/MCL [facility] LYMPHOCYTES # 3298 850 - 3900 CELLS/MCL [facility] MONOCYTES # 970(H) 200 - 950 CELLS/MCL [facility] EOSINOPHILS # 194 15 - 550 CELLS/MCL [facility] BASOPHILS # 97 0 - 200 CELLS/MCL [facility] ATYPICAL LYMPHOCYTES # 0 0 - 200 CELLS/MCL [facility] RDW 13.0 11.0 - 15.0 % [facility] MPV 8.3 7.5 - 11.5 FL [facility] 05/29/2010 05/29/2010 8:2 8 PM EST us Abel Fierro MD LAB SAME DAY RESULT Final Resul t Performing Organization Address City/[facility] Co de Phone Number [facility] [address] [place] [address] * ASPARTATE AMINOTRANSFERASE (AST), SERUM (05/29/2010) AST (SGOT) 21 10 - 35 U/L [facility] 05/29/2010 05/29/2010 8:2 8 PM EST us Abel Fierro MD LAB SAME DAY RESULT Final Resul t Performing Organization Address [facility] Co de Phone Number [facility] [address] [place] [address] * ALANINE AMINOTRANSFERASE (ALT), SERUM (05/29/2010) ALT (SGPT) 27 6 - 40 U/L [facility] 05/29/2010 05/29/2010 8:2 8 PM EST us Abel Fierro MD LAB SAME DAY RESULT Final Resul t Performing Organization Address [facility] de Phone Number [facility] [address] [place] [address] documented in this encounter Visit Diagnoses Diagnosis Rheumatoid arthritis(714.0) Rheumatoid arthritis documented in this encounter Care Teams Screen Printing Machine Loader Unloader Relationship Specialty Start Date End Date Alberto Pacheco [address] [place] [address] PCP - General 07/19/08 05/24/13 Charly Saxena [facility] [place] [address] PCP - General Internal Medicine 05/25/13 07/16/17 Cheryl Calderon MD [facility] Medicine [address] [place] [address] PCP - General Internal Medicine 07/17/17 documented as of this encounter
--- OUTSIDE RECORDS SUMMARY | 2024-06-26 09:33 | XMS_ITS | Encounter Summary ---
Author Organization [facility] Address [address] [place] [address] Care Team Providers Care Service Order Clerk Name Role Phone Alberto Pacheco Primary Care Provider [phone] Charly Saxena Primary Care Provider [phone] Cheryl Calderon MD Primary Care Provider [phone] Reason for Visit * Reason Comments E-prescribing Refill Request Encounter Details Date Type Department Care Team (Late st Contact Info) Description 08/21/2010 Refill [facility] Rheumatology [address] [place] [address] Abel Fierro MD [address] [place] [address] E-prescribing Refill Request Social History Tobacco Use [...] encounter Miscellaneous Notes * Telephone Encounter - Faith Kahn V - 08/22/2010 11:28 AM EDT FYI to Dr. Fierro pt not tapering. * Telephone Encounter - Hillary Mckeon - 08/22/2010 11:14 AM EDT Component Latest Ref Rng 08/21/2010 WHITE BLOOD COUNT 3.8 - 10.8 THOUS/UL 7.1 RED BLOOD CELL COUNT 3.80 - 5.10 MIL/UL 5.28 (H) HEMOGLOBIN 11.7 - 15.5 G/DL 15.1 HEMATOCRIT 35.0 - 45.0 % 46.4 (H) MCV 80.0 - 100.0 FL 87.9 MCH 27.0 - 33.0 PG 28.7 MCHC 32.0 - 36.0 G/DL 32.6 BANDS 0 - 5 % 0 NEUTROPHILS 48 - 75 % 73 LYMPHOCYTES 17 - 40 % 19 MONOCYTES 0 - 14 % 7 EOSINOPHILS 0 - 5 % 0 BASOPHILS 0 - 3 % 1 ATYPICAL LYMPHS 0 - 5 % 0 PLATELET COUNT 140 - 400 THOUS/UL 325 BANDS (#) 0 - 750 CELLS/MCL 0 NEUTROPHILS (#) 1500 - 7800 CELLS/MCL 5183 LYMPHOCYTES (#) 850 - 3900 CELLS/MCL 1349 MONOCYTES (#) 200 - 950 CELLS/MCL 497 EOSINOPHIL COUNT 15 - 550 CELLS/MCL 0 (L) BASOPHILS (#) 0 - 200 CELLS/MCL 71 ATYP. LYMPHOCYTES (#) 0 - 200 CELLS/MCL 0 RDW 11.0 - 15.0 % 13.3 MPV 7.5 - 11.5 FL 8.3 CREATININE 0.60 - 1.10 MG/DL 0.71 GLOMERULAR FILTRATION RATE (GFR) ESTIMATE 60 AND ABOVE > 60 EGFR 60 AND ABOVE > 60 AST (SGOT) 10 - 35 U/L 27 ALT (SGPT) 6 - 40 U/L 37 * Telephone Encounter - Hillary Mckeon - 08/21/2010 9:50 AM EDT Patient states that she did attempt to taper prednisone to 15 mg po qd but experienced a flare. Sheis currently taking prednisone 20 mg po qd and will go for lab work today. Once labs have been drawn will send refill request to provider. Next OV: 09/29/[address] Fierro Last OV: 05/29/10 ASSESSMENT: Rheumatoid arthritis. Overall, she seems to have poor control of her active inflammation with a lot of difficulty and disability. She has had abatacept as well as infliximab and etanercept in the past. I am not sure how much of her current problems are due to active inflammation and how much are more due to chronic damage but she's symptomatically better with prednisone; we'll try slow taper. Consider tocilizumab but she couldn't get PA last time; also consider RA studies. PLAN: Continue current regimen for now. Check labs today and 2 months and see me in 4 months. Continue prednisone 20 mg qd but 06/13 20 alternating with 17.5; 07/11: 17.5 qd; 08/11: 17.5/15; 09/10: 15 mgqd. Labs: Component Latest Ref Rng 05/29/2010 WHITE BLOOD COUNT 3.8 - 10.8 THOUS/UL 9.7 RED BLOOD CELL COUNT 3.80 - 5.10 MIL/UL 4.65 HEMOGLOBIN 11.7 - 15.5 G/DL 13.9 HEMATOCRIT 35.0 - 45.0 % 41.7 MCV 80.0 - 100.0 FL 89.6 MCH 27.0 - 33.0 PG 29.8 MCHC 32.0 - 36.0 G/DL 33.3 BANDS 0 - 5 % 0 NEUTROPHILS 48 - 75 % 53 LYMPHOCYTES 17 - 40 % 34 MONOCYTES 0 - 14 % 10 EOSINOPHILS 0 - 5 % 2 BASOPHILS 0 - 3 % 1 ATYPICAL LYMPHS 0 - 5 % 0 PLATELET COUNT 140 - 400 THOUS/UL 251 BANDS (#) 0 - 750 CELLS/MCL 0 NEUTROPHILS (#) 1500 - 7800 CELLS/MCL 5141 LYMPHOCYTES (#) 850 - 3900 CELLS/MCL 3298 MONOCYTES (#) 200 - 950 CELLS/MCL 970 (H) EOSINOPHIL COUNT 15 - 550 CELLS/MCL 194 BASOPHILS (#) 0 - 200 CELLS/MCL 97 ATYP. LYMPHOCYTES (#) 0 - 200 CELLS/MCL 0 RDW 11.0 - 15.0 % 13.0 MPV 7.5 - 11.5 FL 8.3 CREATININE 0.60 - 1.10 MG/DL 0.62 GLOMERULAR FILTRATION RATE (GFR) ESTIMATE 60 AND ABOVE > 60 EGFR 60 AND ABOVE > 60 ALT (SGPT) 6 - 40 U/L 27 AST (SGOT) 10 - 35 U/L 21 CRP 0 - 0.7 MG/DL 0.2 SED RATE (ESR) 0 - 30 MM/HR 5 documented in this encounter Plan of Treatment Not on file documented as of this encounter Visit Diagnoses Not on filedocumented in this encounter Care Teams Service Order Clerk Relationship Specialty Start Date End Date Alberto Pacheco [address] [place] [address] PCP - General 07/19/08 05/24/13 Charly Saxena [facility] [address] [place] [address] PCP - General Internal Medicine 05/25/13 07/16/17 Cheryl Calderon MD [facility] Medicine [address] [place] [address] PCP - General Internal Medicine 07/17/17 documented as of this encounter
--- OUTSIDE RECORDS SUMMARY | 2024-06-26 09:33 | XMS_ITS | Encounter Summary ---
Author Organization [facility] Address [address] [place] [address] Care Team Providers Care Panel Beater Name Role Phone Alberto Pacheco Primary Care Provider [phone] Charly Saxena Primary Care Provider [phone] Cheryl Calderon MD Primary Care Provider [phone] Reason for Visit * Reason Comments E-prescribing Refill Request Encounter Details Date Type Department Care Team (Late st Contact Info) Description 06/16/2011 Refill [facility] Rheumatology [address] [place] [address] Abel Fierro MD [address] [place] [address] E-prescribing Refill Request Social History Tobacco Use [...] encounter Miscellaneous Notes * Telephone Encounter - Marleny Rangel LVN LPN - 06/18/2011 3:10 PM EST Faxed/E-prescribed medication renewal request(s) for Opal Juares 56 y.o. female received from pharmacy. Entered this pharmacy as preferred pharmacy for patient. Any special requests or concerns?- none Last CPE with this specialty: Last OV with this specialty: 01/29/2011 ASSESSMENT: Rheumatoid arthritis. Overall, she seems improved w. We'll try slow prednisone taper. Recent labs ok; continue current meds except try tapering prednisone by 2.5 mg qod every 1-2 months. PLAN: Continue current regimen for now. Check labs as scheduled and taper prednisone to 10 mg qd asdiscussed. RV 4 months. Note she enjoyed her cruise. xc: Alberto Pacheco MD [address] [facility] Next OV: No future appointments. Pertinent lab results: No labs suggested for any medication orders signed or pended in this encounter. Refresh if any orders changed. Allergies: Acetaminophen-codeine, Sulfa drugs, Gold and Codeine BP Readings from Last 1 Encounters: 01/29/11 112/80 Patient Active Problem List Diagnoses Date Noted ??? Rheumatoid arthritis [714.0] 09/29/2010 Followed by rheumatology treated with methotrexate, leflunomide, adalimumab and prednisone. documented in this encounter Plan of Treatment Not on file documented as of this encounter Visit Diagnoses Not on filedocumented in this encounter Care Teams Panel Beater Relationship Specialty Start Date End Date Alberto Pacheco [address] [place] [phone] PCP - General 07/19/08 05/24/13 Charly Saxena [facility] [address] [place] [address] PCP - General Internal Medicine 05/25/13 07/16/17 Cheryl Calderon MD [facility] Medicine [address] [place] [address] PCP - General Internal Medicine 07/17/17 documented as of this encounter
--- OUTSIDE RECORDS SUMMARY | 2024-06-26 09:33 | XMS_ITS | Encounter Summary ---
Author Organization [facility] Address [address] [place] [address] Care Team Providers Care Churner Name Role Phone Alberto Pacheco Primary Care Provider [phone] Charly Saxena Primary Care Provider [phone] Cheryl Calderon MD Primary Care Provider [phone] Encounter Details Date Type Department Care Team (Late st Contact Info) Description 01/23/2010 Orders Only [facility] Rhe[facility] [address] [place] [address] Abel Fierro MD [address] [place] [address] Social History Tobacco Use Types Packs/Day Years [...] this encounter Procedures * Due to [place] state law, this organization might not be sharing negative HIV tests. Procedure Name Priority Date/Time Associated Diagnosis Comments C-REACTIVE PROTEIN (CRP), QUANTITATIVE, SERUM INFLAMMATION Routine 01/23/2010 Rheumatoid arthritis (HCC) CREATININE WITH GLOMERULAR FILTRATION RATE, ESTIMATED (EGFR) Routine 01/23/2010 Rheumatoid arthritis (HCC) SED RATE ESR Routine 01/23/2010 Rheumatoid arthritis (HCC) CBC 5 PART DIFF Routine 01/23/2010 Rheumatoid arthritis (HCC) ALANINE AMINOTRANSFERASE (ALT), SERUM Routine 01/23/2010 Rheumatoid arthritis (HCC) ASPARTATE AMINOTRANSFERASE (AST), SERUM Routine 01/23/2010 Rheumatoid arthritis (HCC) documented in this encounter Results * Due to [place] state law, this organization might not be sharing negative HIV tests. * SED RATE ESR (01/23/2010) ESR (ERYTHROCYTE SEDIMENTATION RATE) 27 0 - 30 MM/HR [facility] 01/23/2010 01/23/2010 9:1 6 PM EDT Abel Fierro MD LAB SAME DAY RESULT Final Resul t Performing Organization Address City/[facility]/ZIP Co de Phone Number [facility] [address] [place] [address] * (ABNORMAL) C-REACTIVE PROTEIN (CRP), QUANTITATIVE, SERUM INFLAMMATION (01/23/2010) Pathologist [facility] C REACTIVE PROTEIN (CRP) 1.5(H) 0 - 0.7 MG/DL [facility] 01/23/2010 01/23/2010 9:1 6 PM EDT Abel Fierro MD LABORATORY Final Result Performing Organization Address City/[facility]/ZIP Co de Phone Number [facility] [address] [place] [address] * CREATININE WITH GLOMERULAR FILTRATION RATE, ESTIMATED (EGFR) (01/23/2010) CREATININE 0.63 0.60 - 1.10 MG/DL [facility] GFR > 60 60 AND ABOVE [facility] Comment:UNITS: ML/MIN/1.73 S Q METERS EGFR > 60 60 AND ABOVE [facility] Comment:UNITS: ML/MIN/1.73 S Q METERS 01/23/2010 01/23/2010 9:1 6 PM EDT Narrative [facility] - 01/24/2010 5:07 AM EDT Please note that this estimated [...] RESULT Final Resul t [facility] [address] [place] [address] * (ABNORMAL) CBC 5 PART DIFF (01/23/2010) WHITE BLOOD COUNT 6.5 3.8 - 10.8 THOUS/UL [facility] RBC 4.90 3.80 - 5.10 MIL/UL [facility] Hemoglobin 13.7 11.7 - 15.5 G/DL [facility] HCT (HEMATOCRIT) 41.5 35.0 - 45.0 % [facility] MCV 84.8 80.0 - 100.0 FL [facility] MCH 28.0 27.0 - 33.0 PG [facility] MCHC 33.0 32.0 - 36.0 G/DL [facility] BAND % 0 0 - 5 % [facility] NEUTROPHIL % 40(L) 48 - 75 % [facility] LYMPHOCYTE % 50(H) 17 - 40 % [facility] MONOCYTE % 6 0 - 14 % [facility] EOSINOPHIL % 3 0 - 5 % [facility] BASOPHIL % 1 0 - 3 % [facility] ATYPICAL LYMPHOCYTE % 0 0 - 5 % [facility] PLATELETS 395 140 - 400 THOUS/UL [facility] BANDS # 0 0 - 750 CELLS/MCL [facility] NEUTROPHILS # 2600 1500 - 7800 CELLS/MCL [facility] LYMPHOCYTES # 3250 850 - 3900 CELLS/MCL [facility] MONOCYTES # 390 200 - 950 CELLS/MCL [facility] EOSINOPHILS # 195 15 - 550 CELLS/MCL [facility] BASOPHILS # 65 0 - 200 CELLS/MCL [facility] ATYPICAL LYMPHOCYTES # 0 0 - 200 CELLS/MCL [facility] RDW 14.1 11.0 - 15.0 % [facility] MPV 7.0(L) 7.5 - 11.5 FL [facility] 01/23/2010 01/23/2010 9:1 6 PM EDT us Abel Fierro MD LAB SAME DAY RESULT Final Resul t Performing Organization Address [facility] de Phone Number [facility] [address] [place] [address] * ASPARTATE AMINOTRANSFERASE (AST), SERUM (01/23/2010) AST (SGOT) 23 10 - 35 U/L [facility] 01/23/2010 01/23/2010 9:1 6 PM EDT us Abel Fierro MD LAB SAME DAY RESULT Final Resul t Performing Organization Address [facility] de Phone Number [facility] [address] [place] [address] * ALANINE AMINOTRANSFERASE (ALT), SERUM (01/23/2010) ALT (SGPT) 26 6 - 40 U/L [facility] 01/23/2010 01/23/2010 9:1 6 PM EDT us Abel Fierro MD LAB SAME DAY RESULT Final Resul t Performing Organization Address [facility] de Phone Number [facility] [address] [place] [address] documented in this encounter Visit Diagnoses Diagnosis Rheumatoid arthritis(714.0)- Primary Rheumatoid arthritis documented in this encounter Care Teams Churner Relationship Specialty Start Date End Date Alberto Pacheco [address] [place] [address] PCP - General 07/19/08 05/24/13 Charly Saxena [facility] [address] [place] [address] PCP - General Internal Medicine 05/25/13 07/16/17 Cheryl Calderon MD [facility] [address] [place] [address] PCP - General Internal Medicine 07/17/17 documented as of this encounter
--- OUTSIDE RECORDS SUMMARY | 2024-06-26 09:33 | XMS_ITS | Encounter Summary ---
Author Organization [facility] Address [address] [place] [address] Care Team Providers Care Astrobiologist Name Role Phone Alberto Pacheco Primary Care Provider [phone] Charly Saxena Primary Care Provider [phone] Cheryl Calderon MD Primary Care Provider [phone] Encounter Details Date Type Department Care Team (Late st Contact Info) Description 02/20/2011 Orders Only [facility] Rheumatology [address] [place] [address] Abel Fierro MD [address] [place] [address] Social History Tobacco Use Types Packs/Day Years [...] CBC INCLUDES DIFFERENTIAL AND PLATELET COUNT Routine 02/20/2011 11:24 AM EDT Rheumatoid arthritis (HCC) ALANINE AMINOTRANSFERASE (ALT), SERUM Routine 02/20/2011 11:24 AM EDT Rheumatoid arthritis (HCC) ASPARTATE AMINOTRANSFERASE (AST), SERUM Routine 02/20/2011 11:24 AM EDT Rheumatoid arthritis (HCC) CREATININE WITH GLOMERULAR FILTRATION RATE, ESTIMATED (EGFR) Routine 02/20/2011 11:24 AM EDT Rheumatoid arthritis (HCC) documented in this encounter Results * Due to [place] state law, this organization might not be sharing negative HIV tests. * CREATININE WITH GLOMERULAR FILTRATION RATE, ESTIMATED (EGFR) (02/20/2011 11:24 AM EDT) Creatinine 0.80 0.60 - 1.10 mg/dL [facility] Comment:{CREATININE {[id number]) GFR 82 > OR = 60 mL/min/1.7 3m2 [facility] Comment:{eGFR NON-AFR. AMERI CAN {[id number]) GFR () 96 > OR = 60 mL/min/1.7 3m2 [facility] Comment:{eGFR AMERIC AN {[id number]) 02/20/2011 11:2 4 AM EDT 02/20/2011 7:08 PM EDT Narrative [facility] - 02/20/2011 10:59 PM EDT Please note that this estimated [...] needs for GFR calculation. Resulting Agency Comment [id number] us Abel Fierro MD LAB SAME DAY RESULT Final Resul t [facility] [address] [place] [address] * (ABNORMAL) CBC INCLUDES DIFFERENTIAL AND PLATELET COUNT (02/20/2011 11:24 AM EDT) WBC 7.8 3.8 - 10.8 Thousand/ uL [facility] Comment:{WHITE BLOOD CELL CO UNT {[id number]) RBC 5.43(H) 3.80 - 5.10 Million/u L [facility] Comment:{RED BLOOD CELL COUN T {[id number]) Hemoglobin 15.9(H) 11.7 - 15.5 g/dL [facility] Comment:{HEMOGLOBIN {[id number]) Hematocrit 48.3(H) 35.0 - 45.0 % [facility] Comment:{HEMATOCRIT {[id number]) MCV 89.0 80.0 - 100.0 fL [facility] Comment:{MCV {[id number]) MCH 29.4 27.0 - 33.0 pg [facility] Comment:{MCH {[id number]) MCHC 33.0 32.0 - 36.0 g/dL [facility] Comment:{MCHC {[id number]) RDW 14.3 11.0 - 15.0 % [facility] Comment:{RDW {[id number]) PLT 274 140 - 400 Thousand/ uL [facility] Comment:{PLATELET COUNT {[id number]) MPV 8.3 7.5 - 11.5 fL [facility] Comment:{MPV {[id number]) Neutrophils # 4930 1500 - 7800 cells/uL [facility] Comment:{ABSOLUTE NEUTROPHIL S {[id number]) Lymphocytes # 1919 850 - 3900 cells/uL [facility] Comment:{ABSOLUTE LYMPHOCYTE S {[id number]) Monocytes # 780 200 - 950 cells/uL [facility] Comment:{ABSOLUTE MONOCYTES {[id number]) Eosinophils # 125 15 - 500 cells/uL [facility] Comment:{ABSOLUTE EOSINOPHIL S {[id number]) Basophils # 47 0 - 200 cells/uL [facility] Comment:{ABSOLUTE BASOPHILS {[id number]) Neutrophils % 63.2 % [facility] Comment:{NEUTROPHILS {[id number]) Lymphocytes % 24.6 % [facility] Comment:{LYMPHOCYTES {[id number]) Monocytes % 10.0 % [facility] Comment:{MONOCYTES {[id number]) Eosinophils % 1.6 % [facility] Comment:{EOSINOPHILS {[id number]) Basophils % 0.6 % [facility] Comment:{BASOPHILS {[id number]) 02/20/2011 11:2 4 AM EDT 02/20/2011 7:08 PM EDT Narrative Resulting Agency Comment [id number] us Abel Fierro MD LAB SAME DAY RESULT Final Resul t Performing Organization Address City/[facility] Co de Phone Number [facility] [address] [place] [address] * ASPARTATE AMINOTRANSFERASE (AST), SERUM (02/20/2011 11:24 AM EDT) AST (SGOT) 23 10 - 35 U/L [facility] Comment:{AST {[id number]) 02/20/2011 11:2 4 AM EDT 02/20/2011 7:08 PM EDT Narrative Resulting Agency Comment [id number] us Abel Fierro MD LAB SAME DAY RESULT Final Resul t Performing Organization Address [facility] Co de Phone Number [facility] [address] [place] [address] * ALANINE AMINOTRANSFERASE (ALT), SERUM (02/20/2011 11:24 AM EDT) ALT (SGPT) 25 6 - 40 U/L [facility] Comment:{ALT {[id number]) 02/20/2011 11:2 4 AM EDT 02/20/2011 7:08 PM EDT Narrative Resulting Agency Comment [id number] us Abel Fierro MD LAB SAME DAY RESULT Final Resul t Performing Organization Address City/[facility] Co de Phone Number [facility] [address] [place] [address] documented in this encounter Visit Diagnoses Diagnosis Rheumatoid arthritis(714.0) Rheumatoid arthritis documented in this encounter Care Teams Astrobiologist Relationship Specialty Start Date End Date Alberto Pacheco [address] [place] [address] PCP - General 07/19/08 05/24/13 Charly Saxena [facility] [address] [place] [address] PCP - General Internal Medicine 05/25/13 07/16/17 Cheryl Calderon MD [facility] [address] [place] [address] PCP - General Internal Medicine 07/17/17 documented as of this encounter
--- OUTSIDE RECORDS SUMMARY | 2024-06-26 09:33 | XMS_ITS | Encounter Summary ---
Author Organization [facility] Address [phone] Pending sale to [facility] [place] [address] Care Team Providers Care Canned Food Reconditioning Inspector Name Role Phone Cash Fernandes MD Unavailable [phone] Keren Poon [facility] Primary Care Provid er Willi Wells MD Unavailable Jose Thakur MD Unavailable Dana Rucker [employer]IL [employer] SERVICES SUPERINTENDENT Unavailable [phone] Jonathan Alvarez MD Unavailable [phone] Anival Borja MD Unavailable Lyndsay Reynoso OIL WELL SERVICES SUPERINTENDENT Unavailable [phone] Gutierrez Pittman MD Unavailable [phone] Reason for Visit * Auth/Cert (Routine) Specialty Diagnoses / Procedures Referred By Contnickie t Referred To Contact Referral ID Status Reason Start Date Expiration Date Visits Re quested Visits Authorized [id number] 1 1 Encounter Details Date Type Department Care Team (Late st Contact Info) Description 06/16/2024 9:30 AM EST Home Care Visit [facility] [address] [place], [place] [phone] Dante Haynes RN [address] [place] [address] [email or web address] SN HOME VISIT Social History Tobacco Use [...] Sign Reading Time Taken Comments Blood Pressure 136/78 06/16/2024 9:50 AM EST Pulse 84 06/16/2024 9:50 AM EST Temperature 37.1 ??C (98.7 ??F) 06/16/2024 9:50 AM ES T Respiratory Rate 20 06/16/2024 9:50 AM EST Oxygen Saturation 94% 06/16/2024 9:50 AM EST Inhaled Oxygen Concentration - - Weight - - Height - - Body Mass Index - - documented in this encounter Plan of Treatment Upcoming Encounters Date Type Department Care Team (Late st Contact Info) Description 06/06/2024 Procedure Pass [facility], [facility]- [address] [address] 06/26/2024 2:00 PM EST Home Care Visit [facility] [address] [place] [address] Miya Monte, [facility] [address] [facility] [place] [address] 06/30/2024 1:15 PM EST Home Care Visit [facility] [address] [place] [phone] Miya Monte, BODY WORKER [address] [place] [address] 07/01/2024 2:30 PM EST Office Visit [facility] Pulmonary, Allergy and Critical Care Medicine [address] [place] [address] Jose Thakur MD [address] [place] [address] 07/02/2024 2:15 AM EST Home Care Visit [facility] [address] [place] [phone] Miya Monte, BODY WORKER [address] [place] [address] 07/07/2024 3:00 AM EDT Home Care Visit [facility] [address] [place] [phone] Miya Monte, BODY WORKER [address] [place] [address] 07/09/2024 12:45 AM EDT Home Care Visit [facility] [address] [place] [phone] Merly Matos, PT [address] [place] [address] 07/30/2024 3:30 PM EDT Office Visit [facility] [address] [place] [address] [place] [address] Keren Poon, [employer] MIDDLEWARE ARCHITECT [address] [facility], [address] [place] [address] 09/18/2024 2:30 PM EDT Office Visit Amy Boy[facility] Infectious Diseases [address] [place] [address] Dana Rucker, OIL WELL SERVICES SUPERINTENDENT [address] [facility], [address] [place] [address] 11/26/2024 3:30 PM EDT Office Visit [facility] [address] [place] [address] Dr [place] [address] Keren Poon, ORI [address] [facility], [address] [place] [address] [email or web address] 12/11/2024 2:00 PM EDT Appointment [address] [address] Keren Poon, ORI [address] [place] [address], [address] [place] [address] 06/03/2025 2:00 PM EST Office Visit [facility] [address] [place], [place] [address] Keren Poon, [employer] MIDDLE[employer] ARCHITECT [address] [place] [address] documented as of this encounter Visit Diagnoses Not on filedocumented in this encounter Additional Health Concerns Assessment Noted Time PHQ-9 Depression Total Score: 5 05/09/19 24 6:55 AM EST PHQ-2 Depression Total Score: 2 05/27/19 25 1:55 PM EST documented as of this encounter Home Health Visit - Care Plan Visit Details Visit Type -SN HOME VISIT Discipline -Detention Problems Problem Description Start Date Status Goals [...] Fluid volume - Deficit, Risk of Disciplines: Detention 05/14/2024 Active - 4 problem interventions scheduled/document ed in this visit HH - Skin Integrity - Impaired Disciplines: Detention Active - 3 problem interventions scheduled/document ed [...] Instruction Provided: Pt. cooperative with assessment/care, VSS, with moderate pain to back of neck- will follow up with pain clinic for more injection. No any complains of dizziness/chest pain, GI/ concerns. Still has 2-3/day soft formed stools-still have frequent small portion meals to prevent abdominal discomfort with large meals. Pt. consuming enough PO fluids, following on c-diff protocols- hand hygiene, sanitizing the surface use with 10% bleach, bowel/bladder hygiene. Pt. still nervous about C-diff re-occurrence and wants NS visits until the ABX therapy finished. Vancomycin tapering every 3 days- 3 doses left. I/E on when to call [facility]/911-verbalizes understanding. Pt. to follow up with ID on 06/19/24. Instruction Provided to: patient Response to Instruction/Teaching: Is fully able to teach back topics as evidenced by . Plan for Next Visit Specific Focus & Education Needed: cv/cp/GI/ assessment, effectiveness of abx therapy. New Orders: no Updated Discharge Plan: 1-2 visits or until abx therapy finished. HH - I/E management of care in [...] HH - Assess infection risk and s/s Problem: [...] fall Problem: - Falls - Risk of Goal:HH - Knowledge and management of fall prevention [...] Completed Instructions provided to: patient Topic: encouraged fluid Response to teaching: patient has complete understanding [...] Completed documented in this encounter Care Teams Canned Food Reconditioning Inspector Relationship Specialty Start Date End Date Keren Poon CNP [address] [place] [address] [email or web address] PCP - General Family Medicine 01/31/23 Cash Fernandes MD [address] [place] [address] Gastroenterology 08/23/20 Willi Wells MD [address] [place] [address]_[place] [address] Rheumatology 02/04/24 Jose Thakur MD [address] [place] [address] Environmental Scientists Pulmonary Disease 03/17/24 Dana Rucker FNP [address] [place] [address] Nurse Practitioner Infectious Diseases 05/21/24 [place] [address] [place] [address], [address] [place] [address] Urology 05/14/23 Anival Borja MD [address] [place] [address], [address] [place] [address] Neurologist Neurology 01/04/23 Lyndsay Reynoso FNP [address] [place] [address] [place] [address] [email or web address] Nurse Practitioner Pain Medicine 05/27/22 Gutierrez Pittman MD [address] [place] [phone] Airborne Weapons Technical Manager Cardiology 05/27/24 documented as of this encounter Additional Source Comments The information contained in this document represents components of the legal health record. It is not the complete legal health record.[facility]
--- OUTSIDE RECORDS SUMMARY | 2024-06-26 09:33 | XMS_ITS | Encounter Summary ---
Author Organization [facility] Address [address] [place] [address] Care Team Providers Care Leather Tooler Name Role Phone Alberto Pacheco Primary Care Provider [phone] Charly Saxena Primary Care Provider [phone] Cheryl Calderon MD Primary Care Provider [phone] Encounter Details Date Type Department Care Team (Late st Contact Info) Description 08/15/2011 Orders Only [facility] Rheumatology [address] [place] [address] Abel Fierro MD [address] [place] [address] Social History Tobacco Use Types Packs/Day Years [...] as of this encounter Progress Notes * Niecy Salazar - 08/20/2011 4:22 PM EDTQuick Note: Left message on pt's home voicemail for her to return our call and book f/u * Abel Fierro MD - 08/17/2011 11:32 AM EDTQuick Note: Please call. Labs excellent. She should arrange FU with me 1-2 months to reevaluate her arthritis, sooner if she's having a problem. documented in this encounter Plan of Treatment Not on file documented as of this encounter Procedures * Due to [place] Buyoo law, this organization might not be sharing negative HIV tests. Procedure Name Priority Date/Time Associated Diagnosis Comments C-REACTIVE PROTEIN (CRP) - INFLAMMATION Routine 08/15/2011 10:22 AM EDT Rheumatoid arthritis (HCC) ERYTHROCYTE SEDIMENTATION RATE (ESR) Routine 08/15/2011 10:22 AM EDT Rheumatoid arthritis ([facility]) CBC INCLUDES DIFFERENTIAL AND PLATELET COUNT Routine 08/15/2011 10:22 AM EDT Rheumatoid arthritis ([facility]) ALANINE AMINOTRANSFERASE (ALT), SERUM Routine 08/15/2011 10:22 AM EDT Rheumatoid arthritis ([facility]) ASPARTATE AMINOTRANSFERASE (AST), SERUM Routine 08/15/2011 10:22 AM EDT Rheumatoid arthritis ([facility]) CREATININE WITH GLOMERULAR FILTRATION RATE, ESTIMATED (EGFR) Routine 08/15/2011 10:22 AM EDT Rheumatoid arthritis ([facility]) documented in this encounter Results * Due to [place] Buy[employer] law, this organization might not be sharing negative HIV tests. * ERYTHROCYTE SEDIMENTATION RATE (ESR)KUNAL (08/15/2011 10:22 AM EDT) Sedimentation Rate Rockegren (ESR) 6 < OR = 30 mm/h [facility] Comment:{SED RATE BY JONATHAN SYED {[id number]) 08/15/2011 10:2 2 AM EDT 08/15/2011 5:01 PM EDT Narrative Resulting Agency Comment [id number] us Abel Fierro MD LAB SAME DAY RESULT Final Resul t Performing Organization Address [facility] Co de Phone Number [facility] [address] [place] [address] * C-REACTIVE PROTEIN (CRP) - INFLAMMATION (08/15/2011 10:22 AM EDT) C reactive protein 0.15 <0.80 mg/dL [facility] Comment: {C-REACTIVE PROTEIN {[id number]) Please be advised that patients taking Carboxypenicillins may exhibit falsely decreased C-Reactive Protein levels due to an analytical interference in this assay. 08/15/2011 10:2 2 AM EDT 08/15/2011 5:01 PM EDT Narrative Resulting Agency Comment [id number] us Abel Fierro MD LABORATORY Final Result Performing Organization Address [facility] Co de Phone Number [facility] [address] [place] [address] * CREATININE WITH GLOMERULAR FILTRATION RATE, ESTIMATED (EGFR) (08/15/2011 10:22 AM EDT) Creatinine 0.87 0.50 - 1.05 mg/dL [facility] Comment: {CREATININE {[id number]) For patients >49 years of age, the reference limit for Creatinine is approximately 13% higher for people identified as -Kyrgyz. GFR 74 > OR = 60 mL/min/1. 73m2 [facility] Comment:{eGFR NON-AFR. AMERI CAN {[id number]) GFR () 86 > OR = 60 mL/min/1. 73m2 [facility] Comment:{eGFR AMERIC AN {[id number]) 08/15/2011 10:2 2 AM EDT 08/15/2011 5:01 PM EDT Narrative [facility] - 08/15/2011 7:52 PM EDT Please note that this estimated [...] needs for GFR calculation. Resulting Agency Comment [id number] us Abel Fierro MD LAB SAME DAY RESULT Final Resul t [facility] [address] [place] [address] * (ABNORMAL) CBC INCLUDES DIFFERENTIAL AND PLATELET COUNT (08/15/2011 10:22 AM EDT) WBC 7.5 3.8 - 10.8 Thousand/ uL [facility] Comment:{WHITE BLOOD CELL CO UNT {[id number]) RBC 5.26(H) 3.80 - 5.10 Million/u L [facility] Comment:{RED BLOOD CELL COUN T {[id number]) Hemoglobin 14.6 11.7 - 15.5 g/dL [facility] Comment:{HEMOGLOBIN {[id number]) Hematocrit 44.5 35.0 - 45.0 % [facility] Comment:{HEMATOCRIT {[id number]) MCV 84.7 80.0 - 100.0 fL [facility] Comment:{MCV {[id number]) MCH 27.8 27.0 - 33.0 pg [facility] Comment:{MCH {[id number]) MCHC 32.8 32.0 - 36.0 g/dL [facility] Comment:{MCHC {[id number]) RDW 14.8 11.0 - 15.0 % [facility] Comment:{RDW {[id number]) PLT 238 140 - 400 Thousand/ uL [facility] Comment:{PLATELET COUNT {[id number]) MPV 8.4 7.5 - 11.5 fL [facility] Comment:{MPV {[id number]) Neutrophils # 4643 1500 - 7800 cells/uL [facility] Comment:{ABSOLUTE NEUTROPHIL S {[id number]) Lymphocytes # 2265 850 - 3900 cells/uL [facility] Comment:{ABSOLUTE LYMPHOCYTE S {[id number]) Monocytes # 360 200 - 950 cells/uL [facility] Comment:{ABSOLUTE MONOCYTES {[id number]) Eosinophils # 203 15 - 500 cells/uL [facility] Comment:{ABSOLUTE EOSINOPHIL S {[id number]) Basophils # 30 0 - 200 cells/uL [facility] Comment:{ABSOLUTE BASOPHILS {[id number]) Neutrophils % 61.9 % [facility] Comment:{NEUTROPHILS {[id number]) Lymphocytes % 30.2 % [facility] Comment:{LYMPHOCYTES {[id number]) Monocytes % 4.8 % [facility] Comment:{MONOCYTES {[id number]) Eosinophils % 2.7 % [facility] Comment:{EOSINOPHILS {[id number]) Basophils % 0.4 % [facility] Comment:{BASOPHILS {[id number]) 08/15/2011 10:2 2 AM EDT 08/15/2011 5:01 PM EDT Narrative Resulting Agency Comment [id number] us Abel Fierro MD LAB SAME DAY RESULT Final Resul t Performing Organization Address City/[facility] Co de Phone Number [facility] [address] [place] [address] * ALANINE AMINOTRANSFERASE (ALT), SERUM (08/15/2011 10:22 AM EDT) ALT (SGPT) 25 6 - 40 U/L [facility] Comment:{ALT {[id number]) 08/15/2011 10:2 2 AM EDT 08/15/2011 5:01 PM EDT Narrative Resulting Agency Comment [id number] us bAel Fierro MD LAB SAME DAY RESULT Final Resul t Performing Organization Address City/[facility]/ZIP Co de Phone Number [facility] [address] [place] [address] * ASPARTATE AMINOTRANSFERASE (AST), SERUM (08/15/2011 10:22 AM EDT) AST (SGOT) 25 10 - 35 U/L [facility] Comment:{AST {[id number]) 08/15/2011 10:2 2 AM EDT 08/15/2011 5:01 PM EDT Narrative Resulting Agency Comment [id number] us Abel Fierro MD LAB SAME DAY RESULT Final Resul t [facility] [address] [place] [address] documented in this encounter Visit Diagnoses Diagnosis Rheumatoid arthritis(714.0) Rheumatoid arthritis documented in this encounter Care Teams Leather Tooler Relationship Specialty Start Date End Date Alberto Pacheco [address] [place] [address] PCP - General 07/19/08 05/24/13 Charly Saxena [facility] [address] [place] [address] PCP - General Internal Medicine 05/25/13 07/16/17 Cheryl Calderon MD [facility] Medicine [address] [place] [address] PCP - General Internal Medicine 07/17/17 documented as of this encounter
--- OUTSIDE RECORDS SUMMARY | 2024-06-26 09:33 | XMS_ITS | Encounter Summary ---
Author Organization [facility] Address [address] [place] [address] Care Team Providers Care Wood Carver Hand Name Role Phone Alberto Pacheco Primary Care Provider [phone] Charly Saxena Primary Care Provider [phone] Cheryl Calderon MD Primary Care Provider [phone] Encounter Details Date Type Department Care Team (Late st Contact Info) Description 12/06/2009 Orders Only [facility] Rheumatology [address] [place] [address] Abel Fierro MD [address] [place] [address] Social History Tobacco Use Types Packs/Day Years [...] WITH GLOMERULAR FILTRATION RATE, ESTIMATED (EGFR) Routine 12/06/2009 Rheumatoid arthritis (HCC) CBC 5 PART DIFF Routine 12/06/2009 Rheumatoid arthritis (HCC) ALANINE AMINOTRANSFERASE (ALT), SERUM Routine 12/06/2009 Rheumatoid arthritis (HCC) ASPARTATE AMINOTRANSFERASE (AST), SERUM Routine 12/06/2009 Rheumatoid arthritis (HCC) documented in this encounter Results * Due to [place] state law, this organization might not be sharing negative HIV tests. * CREATININE WITH GLOMERULAR FILTRATION RATE, ESTIMATED (EGFR) (12/06/2009) CREATININE 0.69 0.60 - 1.10 MG/DL [facility] GFR > 60 60 AND ABOVE [facility] Comment:UNITS: ML/MIN/1.73 S Q METERS EGFR > 60 60 AND ABOVE [facility] Comment:UNITS: ML/MIN/1.73 S Q METERS 12/06/2009 12/06/2009 9:4 5 PM EDT Narrative [facility] - 12/07/2009 2:33 AM EDT Please note that this estimated [...] Co de Phone Number [facility] [address] [place] [address] * (ABNORMAL) CBC 5 PART DIFF (12/06/2009) WHITE BLOOD COUNT 6.1 3.8 - 10.8 THOUS/UL [facility] RBC 5.31(H) 3.80 - 5.10 MIL/UL [facility] Hemoglobin 15.0 11.7 - 15.5 G/DL [facility] HCT (HEMATOCRIT) 46.1(H) 35.0 - 45.0 % [facility] MCV 86.8 80.0 - 100.0 FL [facility] MCH 28.3 27.0 - 33.0 PG [facility] MCHC 32.6 32.0 - 36.0 G/DL [facility] BAND % 0 0 - 5 % [facility] NEUTROPHIL % 68 48 - 75 % [facility] LYMPHOCYTE % 24 17 - 40 % [facility] MONOCYTE % 7 0 - 14 % [facility] EOSINOPHIL % 1 0 - 5 % [facility] BASOPHIL % 0 0 - 3 % [facility] ATYPICAL LYMPHOCYTE % 0 0 - 5 % [facility] PLATELETS 284 140 - 400 THOUS/UL [facility] BANDS # 0 0 - 750 CELLS/MCL [facility] NEUTROPHILS # 4148 1500 - 7800 CELLS/MCL [facility] LYMPHOCYTES # 1464 850 - 3900 CELLS/MCL [facility] MONOCYTES # 427 200 - 950 CELLS/MCL [facility] EOSINOPHILS # 61 15 - 550 CELLS/MCL [facility] BASOPHILS # 0 0 - 200 CELLS/MCL [facility] ATYPICAL LYMPHOCYTES # 0 0 - 200 CELLS/MCL [facility] RDW 15.1(H) 11.0 - 15.0 % [facility] MPV 7.7 7.5 - 11.5 FL [facility] 12/06/2009 12/06/2009 9:4 5 PM EDT Abel Fierro MD LAB SAME DAY RESULT Final Resul t Performing Organization Address [facility] de Phone Number [facility] [address] [place] [address] * ASPARTATE AMINOTRANSFERASE (AST), SERUM (12/06/2009) AST (SGOT) 18 10 - 35 U/L [facility] 12/06/2009 12/06/2009 9:4 5 PM EDT Abel Fierro MD LAB SAME DAY RESULT Final Resul t Performing Organization Address [facility] de Phone Number [facility] [address] [place] [address] * ALANINE AMINOTRANSFERASE (ALT), SERUM (12/06/2009) ALT (SGPT) 23 6 - 40 U/L [facility] 12/06/2009 12/06/2009 9:4 5 PM EDT Abel Fierro MD LAB SAME DAY RESULT Final Resul t Performing Organization Address [facility] de Phone Number [facility] [address] [place] [address] documented in this encounter Visit Diagnoses Diagnosis Rheumatoid arthritis(714.0) Rheumatoid arthritis documented in this encounter Care Teams Wood Carver Hand Relationship Specialty Start Date End Date Alberto Pacheco [address] [place] [address] PCP - General 07/19/08 05/24/13 Charly Saxena [facility] [address] [place] [address] PCP - General Internal Medicine 05/25/13 07/16/17 Cheryl Calderon MD [facility] Medicine [address] [place] [address] PCP - General Internal Medicine 07/17/17 documented as of this encounter
--- OUTSIDE RECORDS SUMMARY | 2024-06-26 09:33 | XMS_ITS | Encounter Summary ---
Author Organization [facility] Address [address] [place] [address] Care Team Providers Care Grain Elevator Superintendent Name Role Phone Alberto Pacheco Primary Care Provider [phone] Charly Saxena Primary Care Provider [phone] Cheryl Calderon MD Primary Care Provider [phone] Encounter Details Date Type Department Care Team (Late st Contact Info) Description 10/18/2011 Orders Only [facility] Rheumatology [address] [place] [address] Abel Fierro MD [address] [place] [address] Social History Tobacco Use Types Packs/Day Years [...] of this encounter Procedures * Due to [place] state law, this organization might not be sharing negative HIV tests. Procedure Name Priority Date/Time Associated Diagnosis Comments CBC INCLUDES DIFFERENTIAL AND PLATELET COUNT Routine 10/18/2011 4:28 PM EDT Rheumatoid arthritis (HCC) ALANINE AMINOTRANSFERASE (ALT), SERUM Routine 10/18/2011 4:28 PM EDT Rheumatoid arthritis (HCC) ASPARTATE AMINOTRANSFERASE (AST), SERUM Routine 10/18/2011 4:28 PM EDT Rheumatoid arthritis (HCC) CREATININE WITH GLOMERULAR FILTRATION RATE, ESTIMATED (EGFR) Routine 10/18/2011 4:28 PM EDT Rheumatoid arthritis (HCC) documented in this encounter Results * Due to [place] state law, this organization might not be sharing negative HIV tests. * CREATININE WITH GLOMERULAR FILTRATION RATE, ESTIMATED (EGFR) (10/18/2011 4:28 PM EDT) Creatinine 0.82 0.50 - 1.05 mg/dL [facility] Comment: {CREATININE {[id number]) For patients >49 years of age, the reference limit for Creatinine is approximately 13% higher for people identified as -Kuwaiti. GFR 80 > OR = 60 mL/min/1. 73m2 [facility] Comment:{eGFR NON-AFR. AMERI CAN {[id number]) GFR () 93 > OR = 60 mL/min/1. 73m2 [facility] Comment:{eGFR AMERIC AN {[id number]) 10/18/2011 4:28 PM EDT 10/18/2011 8:48 PM EDT Narrative [facility] - 10/18/2011 10:20 PM EDT Please note that this estimated [...] needs for GFR calculation. Resulting Agency Comment [id number] us Abel Fierro MD LAB SAME DAY RESULT Final Resul t [facility] [address] [place] [address] * ALANINE AMINOTRANSFERASE (ALT), SERUM (10/18/2011 4:28 PM EDT) ALT (SGPT) 24 6 - 40 U/L [facility] Comment:{ALT {[id number]) 10/18/2011 4:28 PM EDT 10/18/2011 8:48 PM EDT Narrative Resulting Agency Comment [id number] Abel Fierro MD LAB SAME DAY RESULT Final Resul t Performing Organization Address City/[facility] Co de Phone Number [facility] [address] [place] [address] * ASPARTATE AMINOTRANSFERASE (AST), SERUM (10/18/2011 4:28 PM EDT) Pathologist [facility] AST (SGOT) 27 10 - 35 U/L [facility] Comment:{AST {[id number]) 10/18/2011 4:28 PM EDT 10/18/2011 8:48 PM EDT Narrative Resulting Agency Comment [id number] Abel Fierro MD LAB SAME DAY RESULT Final Resul t Performing Organization Address [facility] de Phone Number [facility] [address] [place] [address] * (ABNORMAL) CBC INCLUDES DIFFERENTIAL AND PLATELET COUNT (10/18/2011 4:28 PM EDT) Pathologist [facility] WBC 7.2 3.8 - 10.8 Thousand/ uL [facility] Comment:{WHITE BLOOD CELL CO UNT {[id number]) RBC 5.34(H) 3.80 - 5.10 Million/u L [facility] Comment:{RED BLOOD CELL COUN T {[id number]) Hemoglobin 15.0 11.7 - 15.5 g/dL [facility] Comment:{HEMOGLOBIN {[id number]) Hematocrit 46.3(H) 35.0 - 45.0 % [facility] Comment:{HEMATOCRIT {[id number]) MCV 86.6 80.0 - 100.0 fL [facility] Comment:{MCV {[id number]) MCH 28.1 27.0 - 33.0 pg [facility] Comment:{MCH {[id number]) MCHC 32.5 32.0 - 36.0 g/dL [facility] Comment:{MCHC {[id number]) RDW 14.4 11.0 - 15.0 % [facility] Comment:{RDW {[id number]) PLT 254 140 - 400 Thousand/ uL [facility] Comment:{PLATELET COUNT {[id number]) MPV 8.4 7.5 - 11.5 fL [facility] Comment:{MPV {[id number]) Neutrophils # 3226 1500 - 7800 cells/uL [facility] Comment:{ABSOLUTE NEUTROPHIL S {[id number]) Lymphocytes # 2988 850 - 3900 cells/uL [facility] Comment:{ABSOLUTE LYMPHOCYTE S {[id number]) Monocytes # 893 200 - 950 cells/uL [facility] Comment:{ABSOLUTE MONOCYTES {[id number]) Eosinophils # 65 15 - 500 cells/uL [facility] Comment:{ABSOLUTE EOSINOPHIL S {[id number]) Basophils # 29 0 - 200 cells/uL [facility] Comment:{ABSOLUTE BASOPHILS {[id number]) Neutrophils % 44.8 % [facility] Comment:{NEUTROPHILS {[id number]) Lymphocytes % 41.5 % [facility] Comment:{LYMPHOCYTES {[id number]) Monocytes % 12.4 % [facility] Comment:{MONOCYTES {[id number]) Eosinophils % 0.9 % [facility] Comment:{EOSINOPHILS {[id number]) Basophils % 0.4 % [facility] Comment:{BASOPHILS {[id number]) 10/18/2011 4:28 PM EDT 10/18/2011 8:48 PM EDT Narrative Resulting Agency Comment [id number] us Abel Fierro MD LAB SAME DAY RESULT Final Resul t [facility] [address] [place] [address] documented in this encounter Visit Diagnoses Diagnosis Rheumatoid arthritis(714.0) Rheumatoid arthritis documented in this encounter Care Teams Grain Elevator Superintendent Relationship Specialty Start Date End Date Alberto Pacheco [address] [place] [address] PCP - General 07/19/08 05/24/13 Charly Saxena [facility] [address] [place] [address] PCP - General Internal Medicine 05/25/13 07/16/17 Cheryl Calderon MD [facility] Adult Medicine [address] [place] [address] PCP - General Internal Medicine 07/17/17 documented as of this encounter
--- OUTSIDE RECORDS SUMMARY | 2024-06-26 09:33 | XMS_ITS | Encounter Summary ---
Author Organization [facility] Address [address] [place] [address] Care Team Providers Care Manager Hi Name Role Phone Alberto Pacheco Primary Care Provider [phone] Charly Saxena Primary Care Provider [phone] Cheryl Calderon MD Primary Care Provider [phone] Encounter Details Date Type Department Care Team (Late st Contact Info) Description 12/26/2010 Orders Only [facility] Rheumatology [address] [place] [address] Abel Fierro MD [address] [place] [address] Social History Tobacco Use Types Packs/Day Years [...] WITH GLOMERULAR FILTRATION RATE, ESTIMATED (EGFR) Routine 12/26/2010 9:49 AM EDT Rheumatoid arthritis (HCC) CBC 5 PART DIFF Routine 12/26/2010 9:49 AM EDT Rheumatoid arthritis (HCC) ALANINE AMINOTRANSFERASE (ALT), SERUM Routine 12/26/2010 9:49 AM EDT Rheumatoid arthritis (HCC) ASPARTATE AMINOTRANSFERASE (AST), SERUM Routine 12/26/2010 9:49 AM EDT Rheumatoid arthritis (HCC) documented in this encounter Results * Due to [place] state law, this organization might not be sharing negative HIV tests. * (ABNORMAL) CBC 5 PART DIFF (12/26/2010 9:49 AM EDT) WBC 10.5 3.8 - 10.8 Thousand/ uL [facility] Comment:{WHITE BLOOD CELL CO UNT {[id number]) RBC 5.17(H) 3.80 - 5.10 Million/u L [facility] Comment:{RED BLOOD CELL COUN T {[id number]) Hemoglobin 15.0 11.7 - 15.5 g/dL [facility] Comment:{HEMOGLOBIN {[id number]) Hematocrit 46.0(H) 35.0 - 45.0 % [facility] Comment:{HEMATOCRIT {[id number]) MCV 89.1 80.0 - 100.0 fL [facility] Comment:{MCV {[id number]) MCH 29.0 27.0 - 33.0 pg [facility] Comment:{MCH {[id number]) MCHC 32.5 32.0 - 36.0 g/dL [facility] Comment:{MCHC {[id number]) RDW 16.1(H) 11.0 - 15.0 % [facility] Comment:{RDW {[id number]) PLT 300 140 - 400 Thousand/ uL [facility] Comment:{PLATELET COUNT {[id number]) MPV 7.6 7.5 - 11.5 fL [facility] Comment:{MPV {[id number]) Neutrophils # 7707 1500 - 7800 cells/uL [facility] Comment:{ABSOLUTE NEUTROPHIL S {[id number]) Lymphocytes # 2163 850 - 3900 cells/uL [facility] Comment:{ABSOLUTE LYMPHOCYTE S {[id number]) Monocytes # 452 200 - 950 cells/uL [facility] Comment:{ABSOLUTE MONOCYTES {[id number]) Eosinophils # 147 15 - 500 cells/uL [facility] Comment:{ABSOLUTE EOSINOPHIL S {[id number]) Basophils # 32 0 - 200 cells/uL [facility] Comment:{ABSOLUTE BASOPHILS {[id number]) Neutrophils % 73.4 % [facility] Comment:{NEUTROPHILS {[id number]) Lymphocytes % 20.6 % [facility] Comment:{LYMPHOCYTES {[id number]) Monocytes % 4.3 % [facility] Comment:{MONOCYTES {[id number]) Eosinophils % 1.4 % [facility] Comment:{EOSINOPHILS {[id number]) Basophils % 0.3 % [facility] Comment:{BASOPHILS {[id number]) 12/26/2010 9:49 AM EDT 12/27/2010 12:33 AM EDT Narrative Resulting Agency Comment [id number] us Abel Fierro MD LAB SAME DAY RESULT Final Resul t Performing Organization Address [facility] Co de Phone Number [facility] [address] [place] [address] * ALANINE AMINOTRANSFERASE (ALT), SERUM (12/26/2010 9:49 AM EDT) ALT (SGPT) 16 6 - 40 U/L [facility] Comment:{ALT {[id number]) 12/26/2010 9:49 AM EDT 12/27/2010 12:33 AM EDT Narrative Resulting Agency Comment [id number] us Abel Fierro MD LAB SAME DAY RESULT Final Resul t Performing Organization Address City/[facility] Co de Phone Number [facility] [address] [place] [address] * ASPARTATE AMINOTRANSFERASE (AST), SERUM (12/26/2010 9:49 AM EDT) AST (SGOT) 16 10 - 35 U/L [facility] Comment:{AST {[id number]) 12/26/2010 9:49 AM EDT 12/27/2010 12:33 AM EDT Narrative Resulting Agency Comment [id number] us Abel Fierro MD LAB SAME DAY RESULT Final Resul t Performing Organization Address [facility] Co de Phone Number [facility] [address] [place] [address] * CREATININE WITH GLOMERULAR FILTRATION RATE, ESTIMATED (EGFR) (12/26/2010 9:49 AM EDT) Creatinine 0.86 0.60 - 1.10 mg/dL [facility] Comment:{CREATININE {[id number]) GFR 76 > OR = 60 mL/min/1.7 3m2 [facility] Comment:{eGFR NON-AFR. AMERI CAN {[id number]) GFR () 88 > OR = 60 mL/min/1.7 3m2 [facility] Comment:{eGFR AMERIC AN {[id number]) 12/26/2010 9:49 AM EDT 12/27/2010 12:33 AM EDT Narrative [facility] - 12/27/2010 1:51 AM EDT Please note that this estimated [...] needs for GFR calculation. Resulting Agency Comment [id number] us Abel Fierro MD LAB SAME DAY RESULT Final Resul t Performing Organization Address City/[facility] Co de Phone Number [facility] [address] [place] [address] documented in this encounter Visit Diagnoses Diagnosis Rheumatoid arthritis(714.0) Rheumatoid arthritis documented in this encounter Care Teams Manager Hi Relationship Specialty Start Date End Date Alberto Pacheco [address] [place] [address] PCP - General 07/19/08 05/24/13 Charly Saxena [facility] [address] [place] [address] PCP - General Internal Medicine 05/25/13 07/16/17 Cheryl Calderon MD [facility] Medicine [address] [place] [address] PCP - General Internal Medicine 07/17/17 documented as of this encounter
--- OUTSIDE RECORDS SUMMARY | 2024-06-26 09:33 | XMS_ITS | Encounter Summary ---
Author Organization [facility] Address [address] [place] [address] Care Team Providers Care Employee Relations Advisor Name Role Phone Alberto Pacheco Primary Care Provider [phone] Charly Saxena Primary Care Provider [phone] Cheryl Calderon MD Primary Care Provider [phone] Encounter Details Date Type Department Care Team (Late st Contact Info) Description 05/13/2009 Orders Only [facility] Rheumatology [address] [place] [address] Abel Fierro MD [address] [place] [address] Social History Tobacco Use Types Packs/Day Years [...] of this encounter Procedures * Due to [place] state law, this organization might not be sharing negative HIV tests. Procedure Name Priority Date/Time Associated Diagnosis Comments BASIC METABOLIC PANEL W/GLOMERULAR FILTRATION RATE (EGFR) Routine 05/13/2009 Rheumatoid arthritis (HCC) SED RATE ESR Routine 05/13/2009 Rheumatoid arthritis (HCC) CBC 5 PART DIFF Routine 05/13/2009 Rheumatoid arthritis (HCC) ALANINE AMINOTRANSFERASE (ALT), SERUM Routine 05/13/2009 Rheumatoid arthritis (HCC) ASPARTATE AMINOTRANSFERASE (AST), SERUM Routine 05/13/2009 Rheumatoid arthritis (HCC) documented in this encounter Results * Due to [place] state law, this organization might not be sharing negative HIV tests. * (ABNORMAL) BASIC METABOLIC PANEL W/GLOMERULAR FILTRATION RATE (EGFR) (05/13/2009) CALCIUM 9.8 8.6 - 10.2 MG/DL [facility] BUN 17 7 - 25 MG/DL [facility] CREATININE 0.67 0.60 - 1.10 MG/DL [facility] Glucose 112(H) 65 - 99 MG/DL [facility] SODIUM 141 135 - 146 MMOL/L [facility] POTASSIUM 4.1 3.5 - 5.3 MMOL/L [facility] CHLORIDE 104 98 - 110 MMOL/L [facility] CARBON DIOXIDE 25 21 - 33 MMOL/L [facility] GFR > 60 60 AND ABOVE [facility] Comment:UNITS: ML/MIN/1.73 S Q METERS EGFR > 60 60 AND ABOVE [facility] Comment:UNITS: ML/MIN/1.73 S Q METERS 05/13/2009 05/13/2009 8:0 1 PM EST Narrative [facility] - 05/14/2009 4:53 AM EST Please note that this estimated [...] for GFR calculation. us Abel Fierro MD LABORATORY Final Result [facility] [address] [place] [address] * SED RATE ESR (05/13/2009) ESR (ERYTHROCYTE SEDIMENTATION RATE) 19 0 - 30 MM/HR [facility] 05/13/2009 05/13/2009 8:0 1 PM EST us Able Fierro MD LAB SAME DAY RESULT Final Resul t Performing Organization Address [facility] de Phone Number [facility] [address] [place] [address] * ALANINE AMINOTRANSFERASE (ALT), SERUM (05/13/2009) ALT (SGPT) 22 6 - 40 U/L [facility] 05/13/2009 05/13/2009 8:0 1 PM EST us Abel Fierro MD LAB SAME DAY RESULT Final Resul t Performing Organization Address [facility] Phone Number [facility] [address] [place] [address] * ASPARTATE AMINOTRANSFERASE (AST), SERUM (05/13/2009) AST (SGOT) 21 10 - 35 U/L [facility] 05/13/2009 05/13/2009 8:0 1 PM EST us Abel Fierro MD LAB SAME DAY RESULT Final Resul t Performing Organization Address [facility] Phone Number [facility] [address] [place] [address] * (ABNORMAL) CBC 5 PART DIFF (05/13/2009) WHITE BLOOD COUNT 4.9 3.8 - 10.8 THOUS/UL [facility] RBC 4.88 3.80 - 5.10 MIL/UL [facility] Hemoglobin 13.9 11.7 - 15.5 G/DL [facility] HCT (HEMATOCRIT) 42.1 35.0 - 45.0 % [facility] MCV 86.1 80.0 - 100.0 FL [facility] MCH 28.4 27.0 - 33.0 PG [facility] MCHC 33.0 32.0 - 36.0 G/DL [facility] BAND % 0 0 - 5 % [facility] NEUTROPHIL % 36(L) 48 - 75 % [facility] LYMPHOCYTE % 45(H) 17 - 40 % [facility] MONOCYTE % 16(H) 0 - 14 % [facility] EOSINOPHIL % 2 0 - 5 % [facility] BASOPHIL % 1 0 - 3 % [facility] ATYPICAL LYMPHOCYTE % 0 0 - 5 % [facility] PLATELETS 415(H) 140 - 400 THOUS/UL [facility] BANDS # 0 0 - 750 CELLS/MCL [facility] NEUTROPHILS # 1764 1500 - 7800 CELLS/MCL [facility] LYMPHOCYTES # 2205 850 - 3900 CELLS/MCL [facility] MONOCYTES # 784 200 - 950 CELLS/MCL [facility] EOSINOPHILS # 98 15 - 550 CELLS/MCL [facility] BASOPHILS # 49 0 - 200 CELLS/MCL [facility] ATYPICAL LYMPHOCYTES # 0 0 - 200 CELLS/MCL [facility] RDW 13.8 11.0 - 15.0 % [facility] MPV 7.0(L) 7.5 - 11.5 FL [facility] 05/13/2009 05/13/2009 8:0 1 PM EST us Abel Fierro MD LAB SAME DAY RESULT Final Resul t [facility] [address] [place] [address] documented in this encounter Visit Diagnoses Diagnosis Rheumatoid arthritis(714.0) Rheumatoid arthritis documented in this encounter Care Teams Employee Relations Advisor Relationship Specialty Start Date End Date Alberto Pacheco [address] [place] [address] PCP - General 07/19/08 05/24/13 Charly Saxena [facility] [address] [place] [address] PCP - General Internal Medicine 05/25/13 07/16/17 Cheryl Calderon MD [facility] Adult Medicine [address] [place] [address] PCP - General Internal Medicine 07/17/17 documented as of this encounter
--- OUTSIDE RECORDS SUMMARY | 2024-06-26 09:33 | XMS_ITS | Encounter Summary ---
Author Organization [facility] Address [address] [place] [address] Care Team Providers Care Personnel Placement Specialist Name Role Phone Alberto Pacheco Primary Care Provider [phone] Charly Saxena Primary Care Provider [phone] Cheryl Calderon MD Primary Care Provider [phone] Encounter Details Date Type Department Care Team (Late st Contact Info) Description 04/14/2010 Orders Only [facility] Rheumatology [address] [place] [address] Deepti Estes GNP Social History Tobacco Use Types Packs/Day Years [...] as of this encounter Progress Notes * Deepti Priest - 04/18/2010 9:10 AM LEIFQuick Note: This is Dr Fierro's pt. documented in this encounter Plan of Treatment Not on file documented as of this encounter Procedures * Due to [place] state law, this organization might not be sharing negative HIV tests. Procedure Name Priority Date/Time Associated Diagnosis Comments CREATININE WITH GLOMERULAR FILTRATION RATE, ESTIMATED (EGFR) Routine 04/14/2010 Rheumatoid arthritis (HCC) CBC 5 PART DIFF Routine 04/14/2010 Rheumatoid arthritis (HCC) ALANINE AMINOTRANSFERASE (ALT), SERUM Routine 04/14/2010 Rheumatoid arthritis (HCC) ASPARTATE AMINOTRANSFERASE (AST), SERUM Routine 04/14/2010 Rheumatoid arthritis (HCC) documented in this encounter Results * Due to [place] state law, this organization might not be sharing negative HIV tests. * CREATININE WITH GLOMERULAR FILTRATION RATE, ESTIMATED (EGFR) (04/14/2010) CREATININE 0.75 0.60 - 1.10 MG/DL [facility] GFR > 60 60 AND ABOVE [facility] Comment:UNITS: ML/MIN/1.73 S Q METERS EGFR > 60 60 AND ABOVE [facility] Comment:UNITS: ML/MIN/1.73 S Q METERS 04/14/2010 04/14/2010 11: 35 PM EST Narrative [facility] - 04/15/2010 5:12 AM EST Please note that this estimated [...] with more precise needs for GFR calculation. Deepti Estes [facility] LAB SAME DAY RESULT Elana l Result Performing Organization Address [facility] de Phone Number [facility] [address] [place] [address] * ALANINE AMINOTRANSFERASE (ALT), SERUM (04/14/2010) ALT (SGPT) 28 6 - 40 U/L [facility] 04/14/2010 04/14/2010 11: 35 PM EST Deepti Estes [facility] LAB SAME DAY RESULT Elana l Result Performing Organization Address [facility] Co de Phone Number [facility] [address] [place] [address] * ASPARTATE AMINOTRANSFERASE (AST), SERUM (04/14/2010) AST (SGOT) 24 10 - 35 U/L [facility] 04/14/2010 04/14/2010 11: 35 PM EST Deepti Estes [facility] LAB SAME DAY RESULT Elana l Result [facility] [address] [place] [address] * (ABNORMAL) CBC 5 PART DIFF (04/14/2010) WHITE BLOOD COUNT 8.7 3.8 - 10.8 THOUS/UL [facility] RBC 5.31(H) 3.80 - 5.10 MIL/UL [facility] Hemoglobin 15.6(H) 11.7 - 15.5 G/DL [facility] HCT (HEMATOCRIT) 47.5(H) 35.0 - 45.0 % [facility] MCV 89.5 80.0 - 100.0 FL [facility] MCH 29.3 27.0 - 33.0 PG [facility] MCHC 32.7 32.0 - 36.0 G/DL [facility] BAND % 0 0 - 5 % [facility] NEUTROPHIL % 64 48 - 75 % [facility] LYMPHOCYTE % 28 17 - 40 % [facility] MONOCYTE % 6 0 - 14 % [facility] EOSINOPHIL % 2 0 - 5 % [facility] BASOPHIL % 0 0 - 3 % [facility] ATYPICAL LYMPHOCYTE % 0 0 - 5 % [facility] PLATELETS 263 140 - 400 THOUS/UL [facility] BANDS # 0 0 - 750 CELLS/MCL [facility] NEUTROPHILS # 5568 1500 - 7800 CELLS/MCL [facility] LYMPHOCYTES # 2436 850 - 3900 CELLS/MCL [facility] MONOCYTES # 522 200 - 950 CELLS/MCL [facility] EOSINOPHILS # 174 15 - 550 CELLS/MCL [facility] BASOPHILS # 0 0 - 200 CELLS/MCL [facility] ATYPICAL LYMPHOCYTES # 0 0 - 200 CELLS/MCL [facility] RDW 15.0 11.0 - 15.0 % [facility] MPV 7.8 7.5 - 11.5 FL [facility] 04/14/2010 04/14/2010 11: 35 PM EST Deepti Estes [facility] LAB SAME DAY RESULT Elana l Result [facility] [address] [place] [address] documented in this encounter Visit Diagnoses Diagnosis Rheumatoid arthritis(714.0) Rheumatoid arthritis documented in this encounter Care Teams Personnel Placement Specialist Relationship Specialty Start Date End Date Alberto Pacheco [address] [place] [address] PCP - General 07/19/08 05/24/13 Charly Saxena [facility] [place] [address] PCP - General Internal Medicine 05/25/13 07/16/17 Cheryl Calderon MD [facility] Adult Medicine [address] [place] [address] PCP - General Internal Medicine 07/17/17 documented as of this encounter
--- OUTSIDE RECORDS SUMMARY | 2024-06-26 09:33 | XMS_ITS | Encounter Summary ---
Author Organization [facility] Address [address] [place] [address] Care Team Providers Care Job Captain Name Role Phone Alberto Pacheco Primary Care Provider [phone] Charly Saxena Primary Care Provider [phone] Cheryl Calderon MD Primary Care Provider [phone] Encounter Details Date Type Department Care Team (Late st Contact Info) Description 09/02/2009 Orders Only [facility] Rheumatology [address] [place] [address] Abel Fierro MD [address] [place] [address] Social History Tobacco Use Types Packs/Day Years [...] WITH GLOMERULAR FILTRATION RATE, ESTIMATED (EGFR) Routine 09/02/2009 Rheumatoid arthritis (HCC) CBC 5 PART DIFF Routine 09/02/2009 Rheumatoid arthritis (HCC) ALANINE AMINOTRANSFERASE (ALT), SERUM Routine 09/02/2009 Rheumatoid arthritis (HCC) ASPARTATE AMINOTRANSFERASE (AST), SERUM Routine 09/02/2009 Rheumatoid arthritis (HCC) documented in this encounter Results * Due to [place] state law, this organization might not be sharing negative HIV tests. * ALANINE AMINOTRANSFERASE (ALT), SERUM (09/02/2009) ALT (SGPT) 24 6 - 40 U/L [facility] 09/02/2009 09/02/2009 9:5 7 PM EDT Abel Fierro MD LAB SAME DAY RESULT Final Resul t Performing Organization Address [facility] de Phone Number [facility] [address] [place] [address] * ASPARTATE AMINOTRANSFERASE (AST), SERUM (09/02/2009) AST (SGOT) 24 10 - 35 U/L [facility] 09/02/2009 09/02/2009 9:5 7 PM EDT us Abel Fierro MD LAB SAME DAY RESULT Final Resul t Performing Organization Address [facility] Phone Number [facility] [address] [place] [address] * CREATININE WITH GLOMERULAR FILTRATION RATE, ESTIMATED (EGFR) (09/02/2009) CREATININE 0.83 0.60 - 1.10 MG/DL [facility] GFR > 60 60 AND ABOVE [facility] Comment:UNITS: ML/MIN/1.73 S Q METERS EGFR > 60 60 AND ABOVE [facility] Comment:UNITS: ML/MIN/1.73 S Q METERS 09/02/2009 09/02/2009 9:5 7 PM EDT Narrative [facility] - 09/03/2009 5:29 AM EDT Please note that this estimated [...] more precise needs for GFR calculation. us bAel Fierro MD LAB SAME DAY RESULT Final Resul t Performing Organization Address City/[facility]/ZIP Co de Phone Number [facility] [address] [place] [address] * (ABNORMAL) CBC 5 PART DIFF (09/02/2009) WHITE BLOOD COUNT 5.5 3.8 - 10.8 THOUS/UL [facility] RBC 5.20(H) 3.80 - 5.10 MIL/UL [facility] Hemoglobin 14.5 11.7 - 15.5 G/DL [facility] HCT (HEMATOCRIT) 44.3 35.0 - 45.0 % [facility] MCV 85.4 80.0 - 100.0 FL [facility] MCH 27.9 27.0 - 33.0 PG [facility] MCHC 32.7 32.0 - 36.0 G/DL [facility] BAND % 0 0 - 5 % [facility] NEUTROPHIL % 55 48 - 75 % [facility] LYMPHOCYTE % 34 17 - 40 % [facility] MONOCYTE % 7 0 - 14 % [facility] EOSINOPHIL % 3 0 - 5 % [facility] BASOPHIL % 1 0 - 3 % [facility] ATYPICAL LYMPHOCYTE % 0 0 - 5 % [facility] PLATELETS 332 140 - 400 THOUS/UL [facility] BANDS # 0 0 - 750 CELLS/MCL [facility] NEUTROPHILS # 3025 1500 - 7800 CELLS/MCL [facility] LYMPHOCYTES # 1870 850 - 3900 CELLS/MCL [facility] MONOCYTES # 385 200 - 950 CELLS/MCL [facility] EOSINOPHILS # 165 15 - 550 CELLS/MCL [facility] BASOPHILS # 55 0 - 200 CELLS/MCL [facility] ATYPICAL LYMPHOCYTES # 0 0 - 200 CELLS/MCL [facility] RDW 15.0 11.0 - 15.0 % [facility] MPV 7.5 7.5 - 11.5 FL [facility] 09/02/2009 09/02/2009 9:5 7 PM EDT us Abel Fierro MD LAB SAME DAY RESULT Final Resul t Performing Organization Address City/[facility]/ZIP Co de Phone Number [facility] [address] [place] [address] documented in this encounter Visit Diagnoses Diagnosis Rheumatoid arthritis(714.0) Rheumatoid arthritis documented in this encounter Care Teams Job Captain Relationship Specialty Start Date End Date Alberto Pachceo [address] [place] [address] PCP - General 07/19/08 05/24/13 Charly Saxena [facility] [address] [place] [address] PCP - General Internal Medicine 05/25/13 07/16/17 Cheryl Calderon MD [facility] [address] [place] [address] PCP - General Internal Medicine 07/17/17 documented as of this encounter
--- OUTSIDE RECORDS SUMMARY | 2024-06-26 09:33 | XMS_ITS | Encounter Summary ---
Author Organization [facility] Address [address] [place] [address] Care Team Providers Care Student Specialist Name Role Phone Alberto Pacheco Primary Care Provider [phone] Charly Saxena Primary Care Provider Cheryl Calderon MD Primary Care Provider [phone] Reason for Visit * Reason Comments E-prescribing Refill Request Encounter Details Date Type Department Care Team (Late st Contact Info) Description 02/05/2012 Refill [facility] Rheumatology [address] [place] [address] Abel Fierro MD [address] [place] [address] E-prescribing Refill Request Social History Tobacco Use [...] encounter Miscellaneous Notes * Telephone Encounter - DarionsandyJosefsonja Valdes - 02/15/2012 11:02 AM EDT According to Lionel they never received 01-18-12 script Called in verbally Humira pen 40mg/0.8mg Inject 40mg s.c via humira pen #2 x5 * Telephone Encounter - Marleny Rangel LVN LPN - 02/06/2012 11:02 AM EDT Message left for patient to call triage. Humira refilled on 01-18-12. ? Pharmacy. documented in this encounter Plan of Treatment Not on file documented as of this encounter Visit Diagnoses Not on filedocumented in this encounter Care Teams Student Specialist Relationship Specialty Start Date End Date Alberto Pacheco [address] [place] [phone] PCP - General 07/19/08 05/24/13 Charly Saxena [facility] [address] [place] [address] PCP - General Internal Medicine 05/25/13 07/16/17 Cheryl Calderon MD [facility] Medicine [address] [place] [address] PCP - General Internal Medicine 07/17/17 documented as of this encounter
--- OUTSIDE RECORDS SUMMARY | 2024-06-26 09:34 | XMS_ITS | Encounter Summary ---
Author Organization [facility] Address [phone] [place] [address] Care Team Providers Care Diversional Therapist Name Role Phone Cash Fernandes MD Unavailable [phone] Keren Poon [facility] Primary Care Provid er Chavo Jack MD Unavailable Willi Wells MD Unavailable Jose Thakur MD Unavailable Dana Rucker POSTAL WORKER Unavailable Jonathan Alvarez MD Unavailable [phone] Anival Borja MD Unavailable Lyndsay Reynoso POSTAL WORKER Unavailable Gutierrez Pittman MD Unavailable [phone] Encounter Details Date Type Department Care Team (Late st Contact Info) Description 03/17/2024 Procedure Pass [facility], Ct Scan - [address] [address] Social History Tobacco Use Types Packs/Day Years [...] st Contact Info) Description 06/06/2024 Procedure Pass [facility], [facility]- [address] [address] 06/26/2024 2:00 PM EST [facility] [address] [place] [phone] Miya Monte, MAIL CLERK BILLS [address] [place] [address] [email or web address] 06/30/2024 1:15 PM EST Home [facility] [address] [place] [phone] Miya Monte, MAIL CLERK BILLS [address] [place] [address] [email or web address] 07/01/2024 2:30 PM EST Office Visit [facility] [address] [place] [address] Jose Thakur MD [address] [place] [address] [email or web address] 07/02/2024 2:15 AM EST [facility] [address] [place] [address] Miya Monte, MAIL CLERK BILLS [address] [place] [address] [email or web address] 07/07/2024 3:00 AM EDT [facility] [address] [place] [phone] Miya Monte, MAIL CLERK BILLS [address] [place] [address] [email or web address] 07/09/2024 12:45 AM EDT Home Care Visit [facility] [address] [place] [address] Merly Matos, PT [address] [place] [address] 07/30/2024 3:30 PM EDT Office Visit [address] [place] [address] Keren Poon, ORI [address] [address] 09/18/2024 2:30 PM EDT Office Visit [facility] [address] [place] [address] Dana Rucker, POSTAL WORKER [address] [address] 11/26/2024 3:30 PM EDT Office Visit [address] [place] [address] Keren Poon, ORI [address] [address] 12/11/2024 2:00 PM EDT Appointment [facility] [address] [place] [address] Keren Poon, ORI [address] [address] 06/03/2025 2:00 PM EST Office Visit [address] [place] [address] Keren Poon, ORI [address] [address] [email or web address] documented as of this encounter Visit Diagnoses [...] documented as of this encounter Care Teams Diversional Therapist Relationship Specialty Start Date End Date Keren Poon CNP [address] [place] [address], [address] [place] [address] [email or web address] PCP - General Family Medicine 01/31/23 Cash Fernandes MD [address] [place] [address] Gastroenterology 08/23/20 Chavo Jack MD [address] [place] [address] [email or web address] Insurance Assigned Provider 08/03/23 05/04/24 Willi Wells MD [address] [place] [address] 304_[place] [address] Rheumatology 02/04/24 Jose Thakur MD [address] [place] [address] Marine Farmer Pulmonary Disease 03/17/24 Dana Rucker FNP 15 [facility], 2nd [place] [address] Nurse Practitioner Infectious Diseases 05/21/24 Jonathan Alvarez MD [address] [place] [address], [address] [place] [address] Urology 05/14/23 Anival Borja MD [address] [place] [address], [address] [place] [address] Neurologist Neurology 01/04/23 Lyndsay Reynoso FNP 10 [facility] [address] [place] [phone] [email or web address] Nurse Practitioner Pain Medicine 05/27/22 Gutierrez Pittman MD [address] [place] [address] Air Conditioning Manager Cardiology 05/27/24 documented as of this encounter Additional Source Comments The information contained in this document represents components of the legal health record. It is not the complete legal health record.[facility]
== END 2024-06-26 09:33 | disposition home or self-care (01) ==
PROVIDERS: PCP Nurse Practitioner Family; Visit Provider Internal Medicine
DX: M79.18 Myalgia, other site (principal)
CPT/HCPCS: 20553

== ENCOUNTER → 2024-06-26 09:00 | Outpatient (BNVA) | payer MEDICARE, BC, SELFPAY | PROVIDERS: PCP Nurse Practitioner Family; Visit Provider Internal Medicine | DX: M79.18 Myalgia, other site (principal) | CPT/HCPCS: 20553; J2795 ==

== ENCOUNTER 2024-07-28 10:20 | Outpatient (AMB) | payer MEDICARE, BC, SELFPAY ==
--- NOTE | 2024-07-28 10:24 | A.OFFVIS_ITS ---
Vital Signs 07/28/24 10:34 Height 5 ft 6 in Weight 165 lb 12.602 oz BMI 26.8 BP 112/70 Blood Pressure Location Lt brachial Position Sitting Pulse 82 Pulse Source Pulse Oximeter Pulse Oximetry (%) 96 Oxygen Delivery Method Room Air Intake Visit Reasons: RA/ discuss treatment Intake Note: Patient presents today for RA and to discuss treatment. Allergies codeine Allergy (Mild, Verified 06/26/24 09:14) Paleness Gold Salts Allergy (Mild, Verified 06/26/24 09:14) Rash Sulfa (Sulfonamide Antibiotics) Allergy (Mild, Verified 06/26/24 09:14) Swelling Medication List - Last Reconciled 07/28/24 by Samantha Kwon MD alendronate 70 mg PO QWEEK apixaban (Eliquis) 5 mg PO BID ascorbic acid (vitamin C) mg PO biotin 1 mg PO DAILY carvedilol 12.5 mg PO BID cholecalciferol (vitamin D3) 10 mcg PO DAILY cyclobenzaprine 5 mg PO TID PRN escitalopram oxalate 10 mg PO DAILY estradiol 0.01%(0.1mg/gram) grams vaginal NEEDED PRN fluticasone propionate 50 mcg/actuation 1 spray intranasal DAILY folic acid 1 mg PO DAILY furosemide mg PO levothyroxine 88 mcg PO DAILY lorazepam 0.5 mg PO Q4H PRN losartan 25 mg PO DAILY methenamine hippurate 1 g PO BID methotrexate sodium 15 mg (6 x 2.5 mg) PO QWEEK ondansetron 4 mg PO NEEDED oxybutynin chloride ER 10 mg PO DAILY potassium chloride ER 20 mEq PO BID prednisone 2.5 mg PO DAILY rituximab (Rituxan) 1,000 mg (100 mL) IV [id number] sennosides 8.6 mg PO BEDTIME sucralfate 1 g PO QID vancomycin mg PO HPI Comments Details: Patient is a 69-year-old female with hypertension, depression, asthma, hypothyroidism, chronic lower extremity edema on furosemide, chronic C diff infection and seropositive rheumatoid arthritis here today for follow up Interval History: Patient last seen 02/26/[address] Wells. At that time she was on rituximab infusions, methotrexate 15 mg weekly, folic acid daily and Prednisolone 2.5 mg daily she was also on alendronate weekly. She was doing reasonably well overall with intermittent pain to her knuckles lasting up bout a day per week. She was doing reasonably well overall and was scheduled for follow up in 4 months however patient was admitted to the hospital with recurrent C diff infection and her rituximab dose was held. Currently seeing Adam Treadwell for ID. Today patient is doing relatively well with respect to her joints but having mostly pain in her knees. Rheumatologic History: Initial history: This is a 67-year-old female with complex past medical history including standing deforming RA who presents as a new patient. Her previous management expert left the practice. Her most recent management expert was Dr. Davis. She stated that she was diagnosed with rheumatoid arthritis back in the 70s. She had an allergic reaction to gold. She was on Remicade, Humira, Enbrel, Orencia. All of which worked for a while then lost their efficacy. She was on Xeljanz for a few years then she developed drug-induced lupus erythematosus per patient. She had diffuse blistering skin rash and hair loss. At that time 6 medicines were discontinued including Xeljanz. Most recently she received rituximab towards the end of 2020 and another rituximab course in 09/2021. Per notes patient seen to have some improvement with rituximab Patient has a history of recurrent diverticulitis. Patient has severe deforming RA s/p multiple surgeries including right elbow replacement, bilateral hand tendon surgeries, right hand MCPs surgeries, right ankle fusion. She had been on prednisone as a monotherapy for years. She is currently on 10 mg daily. She gets recurrent iritis that she treats with topical steroid eyedrops. She states that she gets those recurrent iritis every few months. Patient has been using wheelchair since 2019 due to bilateral knee pain. States that her knees give out . She can walk 1/8of a mile per on a good day. She states that the majority of her joint pain over the last few years has been her knees. She received multiple intra-articular steroid injections last year with some relief. Current Rheumatology Medication(s): Rituxumab 1000mg every 6 months Methotrexate 15mg weekly PO Folic acid 1 mg daily Prednisone 2.5mg [facility] Medical History Anxiety and depression Lacunar infarction Diverticulitis Diverticulosis Endometriosis Schatzki's ring Drug-induced lupus erythematosus Encounter for testing for latent tuberculosis infection Afib Osteopenia of multiple sites Rheumatoid arthritis involving multiple sites with positive rheumatoid factor Vitamin D deficiency Primary osteoarthritis of both knees Surgical History H/O unilateral oophorectomy H/O cataract extraction History of bladder suspension procedure H/O elbow replacement H/O tubal ligation History of cholecystectomy History of ankle surgery H/O hand surgery Family History Mother Diabetes Sister Diabetes Pancreatic cancer Father Pancreatic cancer Seizures Social History Household Members: Spouse Alcohol intake: never Patient Tobacco Use Status: Never used Tobacco Current occupational status: disabled Review of Systems Const Details: Review of Systems Constitutional: Denies fever, chills, weight loss ENT: Denies vision changes, eye pain or eye redness, dental caries, dry mouth GI: Denies nausea, vomiting, diarrhea, abdominal pain, change in BM Pulm: Denies SOB, THOMPSON, hemoptysis, wheezing Cards: Denies chest pain, palpitations Skin: Denies Raynaud's, rash, nail changes, photosensitivity, PAYROLL SERVICES ANALYST: Denies headaches, weakness, paresthesias, recurrent falls MSK: as per HPI All other systems reviewed and are unremarkable except noted above Physical Exam Vital Signs: Last Vital Signs Pulse 82 07/28/24 10:34 BP 112/70 07/28/24 10:34 Pulse Ox 96 07/28/24 10:34 Oxygen Delivery Method Room Air 07/28/24 10:34 BMI result Body Mass Index 26.8 Vital signs reviewed Physical Examination CONSTITUITIONAL Patient alert and cooperative. Well appearing and in no apparent painful distress HEENT Conjunctiva and sclera clear. ?Pupils equal round and reactive to light. ?No lymphadenopathy. ? CHEST/RESPIRATORY SYSTEM Normal respiratory effort and able to speak in complete sentences. ?Clear to auscultation bilaterally. ?No crackles, rales, rhonchi, wheezes heard. CARDIAC SYSTEM Regular rate and rhythm. ?S1 and S2 heard no murmurs. ?Radial pulses intact bilaterally MSK Hands: ?Very deforming rheumatoid arthritis bilaterally. Right hand: Ulnar deviation at the level of the MCPs with weakness in finger extensors and hand held in chronic flexion. Left hand: Also with ulnar deviation at the level of the MCPs with we can finger extensors and hand held in flexion. Wrists: ?Bilateral wrists fused with surgical scar noted on the dorsum of bilateral wrists Elbows: Decreased range of motion bilaterally but no tenderness to palpation Shoulders: Decreased range of motion bilaterally but no rotator cuff impingement Hips: Unable to examine as patient is in chair Knees: Decreased range of motion bilaterally specifically to knee extension. Swelling noted over the medial aspect of the inferior knee. Minimal to no tenderness of the knee joint proper bilaterally. But tenderness to palpation of bilateral pes anserine bursa Ankles: Right ankle fixed. Left ankle with some movement at the subtalar joint Feet: ?Bilateral feet with hammertoe and deformities. Tenderness to palpation of scattered MTPs SKIN Skin intact without rashes. Office Procedures AMB Joint Injection/Aspiration Joint Injection/Aspiration Details: Procedure was explained to the patient and consent was obtained. ? The area of interest was identified and confirmed with patient. ?This was subsequently cleaned with chlorhexidine x3. ? The area was then anesthetized using ethyl chloride spray. 40 mg Kenalog with 1 cc 1% lidocaine was injected without issue. ?Minimal to no bleeding. ?Patient tolerated procedure. Primary Site: other (Right pes anserine bursa) Prep: site was prepped using aseptic technique and ethochloride spray was applied Injected: 40 mg of, Kenalog, with 1 mL of and 1% plain lidocaine Approach Used: anterior Procedure: The patient tolerated the procedure well Coding 68436 - Large joint Procedure code (CPT) selection complete AMB Joint Injection/Aspiration Joint Injection/Aspiration Details: Procedure was explained to the patient and consent was obtained. ? The area of interest was identified and confirmed with patient. ?This was subsequently cleaned with chlorhexidine x3. ? The area was then anesthetized using ethyl chloride spray. 40 mg Kenalog with 1 cc 1% lidocaine was injected without issue. ?Minimal to no bleeding. ?Patient tolerated procedure. Primary Site: other (left pes anserine bursa) Prep: site was prepped using aseptic technique and ethochloride spray was applied Injected: 40 mg of, Kenalog, with 1 mL of and 1% plain lidocaine Approach Used: anterior Procedure: The patient tolerated the procedure well Coding 50783 - Large joint Procedure code (CPT) selection complete Office Meds lidocaine (PF) 10 mg/mL (1 %) injection solution Performing Provider: Samantha Kwon MD Performing Location: [facility] [place] [facility] [place] Administered by: Samantha Kwon MD on 07/28/24 13:18 Dose Route Admin Location Dispensed Lot Number Expiration Date NDC Armature Repairer 1 mL Infiltration Right pes anserine bursa 2 mL [id number] 07/28/26 84408-704-77 [employer] Kenalog 40 mg/mL suspension for injection Performing Provider: Samantha Kwon MD Performing Location: [facility] [place] Administered by: Samantha Kwon MD on 07/28/24 13:18 Dose Route Admin Location Dispensed Lot Number Expiration Date NDC Armature Repairer 40 mg intrabursal Right pes anserine bursa 1 mL [id number] 10/27/25 [address]-5 [employer] lidocaine (PF) 10 mg/mL (1 %) injection solution Performing Provider: Samantha Kwon MD Performing Location: [facility] [place] Administered by: Samantha Kwon MD on 07/28/24 13:18 Dose Route Admin Location Dispensed Lot Number Expiration Date NDC Armature Repairer 1 mL Infiltration left pes anserine bursa 2 mL [id number] 07/28/26 34342-863-30 FR[employer]EN[employer]US K[employer] Kenalog 40 mg/mL suspension for injection Performing Provider: Samantha Kwon MD Performing Location: [facility] [place] [facility] Administered by: Samantha Kwon MD on 07/28/24 13:18 Dose Route Admin Location Dispensed Lot Number Expiration Date NDC Armature Repairer 40 mg intrabursal Left pes anserine bursa 1 mL [id number] 07/28/25 [address]-5 [employer] Results Reviewed Results Reviewed: Laboratory Tests 09/18/23 10/08/23 14:10 09:11 WBC 8.4 RBC 5.05 Hgb 15.8 Hct 48.0 H Plt Count 249 ESR 2 Sodium 145 Potassium 3.7 Chloride 109 H Carbon Dioxide 29 BUN 25 H Creatinine 0.75 AST 31 ALT 28 Alkaline Phosphatase 43 Total Protein 6.2 L Immunology labs 07/25/22 09/18/23 16:54 14:10 IgG Total 591 L IgA Total 81 IgM 35 L Rheumatoid Factor 17.9 H Cycl Citrul Peptide IgG <16 Infectious serologies 07/25/22 16:54 Hepatitis A IgM Ab Nonreactive Hep Bs Antigen Negative Hep Bs Antibody NONREACTIVE Hep B Core Total Ab Nonreactive Hepatitis C Ab (EIA) Nonreactive TB Test (T-Spot) Com Negative Assessment & Plan Assessment & Plan (1) Rheumatoid arthritis involving multiple sites with positive rheumatoid factor: Comment: dx in 1970s Gold--> allergic reaction HCQ ineffective MTX caused diarrhea and GI upset even when switched to SQ Remicade, Enbrel, Humira, all worked for sometime then lost their efficacy Orencia Celebrex not effective Xeljanz effective for a few years then DC due to DILE (is unclear we whether it was because Xeljanz as 5 other medicines were stopped) RTX 2 doses given end of 2020 & 09/2021. 08/2022,03/2023 effective, 1 dose 09/2023 Code(s): M05.79 - Rheumatoid arthritis with rheumatoid factor of multiple sites without organ or systems involvement Category: Medical Plan: #Seropositive Erosive and Deforming RA Patient is a 69-year-old female with seropositive erosive and deforming rheumatoid arthritis. Has failed several medications in the past and is currently on rituximab infusions every 6 months. She was due for her infusion in March however had hospitalization for C diff. Since then she has had 2 subsequent episodes of C diff infection requiring treatment. In total she has had 3 C diff infections and is currently on p.o. vancomycin. The plan is for her to get a fecal transplant however there is concern about using rituximab prior to her fecal transplant. With respect to her joints on exam today. I do not see any evidence of active synovitis. Her knees are positive for bilateral pes anserine bursitis which is now status post bilateral injection. I will reach out to her infectious disease doctor Adam Treadwell, to discuss treatment moving forward. In my literature search I did not find any contraindication to proceeding with rituximab in the setting of a fecal transplant. In a systemic meta analysis microbiology transplantation was reviewed in many immunocompromise individuals however specifically on rituximab therapy was not seen (PMID: 68031763, PMID: [id number]). Another case reports did mention that performing the fecal transplantation while there is recuperating B- cells improves the ability of the transplant to take hold For now we will continue to monitor off of immunosuppression: Methotrexate and rituximab Plan - Continue to hold methotrexate and rituxumab - Prednisone 2.5mg daily - Labs today: Lymphocyte subset panel, ESR, CRP, CMP, CBC - RTC 3 months - Labs before visit: CBC, CMP, ESR, CRP, hepatitis panel, T spot (2) Pes anserine bursitis: Code(s): M70.50 - Other bursitis of knee, unspecified knee Qualifiers: Laterality: bilateral Qualified Code(s): M70.51 - Other bursitis of knee, right knee; M70.52 - Other bursitis of knee, left knee Plan: #Bilateral pes anserine bursitis Patient with bilateral pes anserine bursitis status post steroid injection today. (3) Encounter for monitoring rituximab therapy: Code(s): Z51.81 - Encounter for therapeutic drug level monitoring; Z79.620 - nursing home (current) use of immunosuppressive biologic Plan: #Long-term Use of Rituxumab Discussed with this patient the risks and benefits of rituximab use to the management of the rheumatic condition Benefits include improved disease control and maintenance of remission Risks include hypogammaglobulinemia and increased risk of opportunistic infections, reactivation of hepatitis-B, infusion reactions Monitoring: ?Immunoglobulins, hepatitis-B serologies, CBC (4) Encounter for methotrexate monitoring: Code(s): Z51.81 - Encounter for therapeutic drug level monitoring; Z79.631 - terminal gauger supervisor (current) use of antimetabolite agent Plan: #Long-term Current Use of Methotrexate Discussed with patient the benefits and risks of methotrexate for managing their rheumatic condition Benefits include reduced pain, reduced mortality, maintenance of remission and reduction of flares Risks include oral ulcers, photosensitivity, hepatotoxicity, hematologic toxicity, pneumonitis, flu-like symptoms (especially day after administration), nodulosis, lymphomas ? Limit alcohol and avoid Bactrim ? Monitoring: ?CBC, BMP, LFTs every 3-4 months and hepatitis serologies as needed (5) nursing home (current) use of systemic steroids: Code(s): Z79.52 - terminal gauger supervisor (current) use of systemic steroids Plan: #Long-term Use of Steroids Discussed with patient the risks and benefits of steroid for managing the rheumatic condition Benefits include: - Reduced pain, improved mobility, increased participation in activities, and decreased progression of disease Risks include: - GI upset, potential ultrasound worsening or formation (especially in patients > 65 years old), elevated blood pressure/worsening hypertension, elevated blood sugar/worsening diabetes control, worsening of bone density, elevated lipids/worsening triglycerides, cataract formation, weight gain Recommended using proton pump inhibitors (PPIs) for the duration of steroid use to reduce the risk of gastric ulcers and vitamin-D daily to reduce the risk of osteoporosis Labs checked: ?A1c, T spot, hepatitis-B and C serologies Pneumocystis jiroveci prophylaxis: ?Patient with risk factors including steroids greater than 50 mg for more than 30 days, age greater than 60 years, and lung involvement from underlying rheumatic disease requires prophylaxis and will be given so Plan I spent 62 minutes reviewing the record and labs, taking a history, examining the patient, discussing the treatment plan, ordering diagnostic work up, contacting ID specialist, Reviewing literature on the patient and documenting in the medical record Orders: Orders Complete Blood Count Auto Diff Today - Rheumatoid arthritis with rheumatoid factor of multiple sites without organ or systems involvement Complete Blood Count Auto Diff 3 Months - Rheumatoid arthritis with rheumatoid factor of multiple sites without organ or systems involvement T Spot TB 3 Months - Rheumatoid arthritis with rheumatoid factor of multiple sites without organ or systems involvement Immunoglobulins,IgG IgA IgM 3 Months - Rheumatoid arthritis with rheumatoid factor of multiple sites without organ or systems involvement AMB Joint Injection/Aspiration Today - Rheumatoid arthritis with rheumatoid factor of multiple sites without organ or systems involvement Lymphocyte Subset Panel 4 Today - Rheumatoid arthritis with rheumatoid factor of multiple sites without organ or systems involvement Comprehensive Met. Panel Today - Rheumatoid arthritis with rheumatoid factor of multiple sites without organ or systems involvement C Reactive Protein Today - Rheumatoid arthritis with rheumatoid factor of multiple sites without organ or systems involvement Erythrocyte Sedimentation Rate Today - Rheumatoid arthritis with rheumatoid factor of multiple sites without organ or systems involvement Comprehensive Met. Panel 3 Months - Rheumatoid arthritis with rheumatoid factor of multiple sites without organ or systems involvement C Reactive Protein 3 Months - Rheumatoid arthritis with rheumatoid factor of multiple sites without organ or systems involvement Erythrocyte Sedimentation Rate 3 Months - Rheumatoid arthritis with rheumatoid factor of multiple sites without organ or systems involvement Hepatitis A,B,C Profile 3 Months - Rheumatoid arthritis with rheumatoid factor of multiple sites without organ or systems involvement AMB Joint Injection/Aspiration Today - Rheumatoid arthritis with rheumatoid factor of multiple sites without organ or systems involvement Medications: New lidocaine (PF) 1 mL Infiltration ONCE 2 mL 0RF - Rheumatoid arthritis with rheumatoid factor of multiple sites without organ or systems involvement Kenalog (triamcinolone acetonide) 40 mg intrabursal ONCE 1 mL 0RF NS M05.79 - Rheumatoid arthritis with rheumatoid factor of multiple sites without organ or systems involvement lidocaine (PF) 1 mL Infiltration ONCE 2 mL 0RF M05.79 - Rheumatoid arthritis with rheumatoid factor of multiple sites without organ or systems involvement Kenalog (triamcinolone acetonide) 40 mg intrabursal ONCE 1 mL 0RF NS M05.79 - Rheumatoid arthritis with rheumatoid factor of multiple sites without organ or systems involvement Coding Level of Care Code Est Pt Level 5 (09620) Complex EM visit Add On G2211 Diagnoses Rheumatoid arthritis involving multiple sites with positive rheumatoid factor M05.79 Pes anserinus bursitis of both knees M70.51; M70.52 Laterality: bilateral Encounter for monitoring rituximab therapy Z51.81; Z79.620 Encounter for methotrexate monitoring Z51.81; Z79.631 terminal gauger supervisor (current) use of systemic steroids Z79.52 CPT Codes Coding - 74609 Large joint: 59215 - Large joint ([id number]) Coding - 34665 Large joint: 43577 - Large joint ([id number])
[2024-07-28 10:34] VITALS: BP 112/70; PULSE 82; O2SAT 96; BMI 26.8
--- OUTSIDE RECORDS SUMMARY | 2024-07-28 12:09 | XMS_ITS | Encounter Summary ---
Author Organization [facility] Address [address] [place] [address] Phone Care Team Providers Care Eye Glass Frame Polisher Name Role Phone Unavailable Primary Care Provider Unavailabl e Encounter Details Date Type Department Care Team (Late st Contact Info) Description 10/09/2012 Hospital Encounter [facility],Outside Imaging [address], [place] [id number] System, Provider [place] In, [place] [address] Social History Tobacco Use Types Packs/Day Years Used Date Smoking Tobacco: Never Smokeless Tobacco: Never Alcohol Use Standard Drinks/Week Comments Not Currently 0 (1 standard drink = 0.6 oz pur e alcohol) Home Health Assessment: Transportation Answer Date Recorded Lack of Transportation (Medical) No 07/14/2024 Lack of Transportation (Non-Medical) No 07/14/2024 Patient Unable or Declines to Respond No 07/14/2024 Child or Family Care Answer Date Record [...] or tries to control you? No 07/10/2024 Sex and Gender Information Value Date Recorded Sex Assigned at Female 08/18/2020 10:48 PM EDT Gender Identity Female 08/18/2020 10:48 PM EDT Sexual Orientation Straight 09/27/2020 4: 02 PM EDT documented as of this encounter Plan of Treatment Upcoming Encounters Date Type Department Care Team (Late st Contact Info) Description 06/06/2024 Procedure Pass [facility], [facility] [address] [place] [address] 07/28/2024 1:00 PM EDT [facility] [address] [place] [phone] Trice De Santiago LPN [address] [place] [address] [email or web address] 07/30/2024 3:30 PM EDT Office Visit [facility] [address] [place] [phone] Keren Poon, ORI [address] [facility], [address] [place] [address] [email or web address] 08/04/2024 2:30 AM EDT [facility] [address] [place] [phone] Orlando Mckeon RN [address] [place] [address] [email or web address] 08/11/2024 2:00 AM EDT [facility] [address] [place] [phone] Orlando Mckeon RN [address] [place] [address] [email or web address] 08/18/2024 1:30 AM EDT Home Care Visit [facility] [address] [place] [phone] Orlando Mckeon, RENZO [address] [place] [address] [email or web address] 08/25/2024 1:00 AM EDT Home Care Visit [facility] [address] [place] [phone] Orlando MckeonRENZO [address] [place] [address] 09/01/2024 12:30 AM EDT Appointment [facility] [address] [place] [phone] Orlando Mckeon RN [address] [place] [address] 09/18/2024 2:30 PM EDT Office Visit [facility] [address] [place] [address] Dana Rucker FNP [address] [facility], [address] [place] [address] 11/26/2024 3:30 PM EDT Office Visit [address] [place] [address] Keren Poon, ORI [address] [address] 12/11/2024 2:00 PM EDT Appointment [facility], [facility]- [address] [address] Keren Poon, ORI [address] [address] 01/07/2025 2:30 PM EDT Office Visit [facility] [address] [place] [phone] Jose Thakur MD [address] [place] [address] 06/03/2025 2:00 PM EST Office Visit [address] [place] [address] Keren Poon, CREDIT ADMINISTRATION MANAGER [address] [facility], [address] [place] [address] [email or web address] documented as of this encounter Procedures Procedure [...] 9 AM EDT C. diff 07/10/2024 07/10/2024 [facility] 07/10/2024 07/10/2024 07/10/2024 11:0 0 AM EDT documented as of this encounter Additional Source Comments The information contained in this document represents components of the legal health record. It is not the complete legal health record.[facility]
--- OUTSIDE RECORDS SUMMARY | 2024-07-28 12:09 | XMS_ITS | Encounter Summary ---
Author Organization [facility] Address [address] [place] [address] Phone Care Team Providers Care Pet Training Instructor Name Role Phone Unavailable Primary Care Provider Unavailabl e Encounter Details Date Type Department Care Team (Late st Contact Info) Description 10/09/2011 Hospital Encounter [facility],Outside Imaging [address] [place], [place] [id number] System, Provider [place] In, [place] [address] Social History Tobacco Use Types Packs/Day Years [...] st Contact Info) Description 06/06/2024 Procedure Pass [facility], [facility] 30 [place] [address] 07/28/2024 1:00 PM EDT [facility] [address] [place] [phone] Trice De Santiago LPN [address] [place] [address] [email or web address] 07/30/2024 3:30 PM EDT Office Visit [facility] [address] [place] [address] Keren Poon, ORI 170 [facility], 2nd [place] [address] [email or web address] 08/04/2024 2:30 AM EDT [facility] [address] [place] [phone] [place] Mckeon RN [address] [place] [address] [email or web address] 08/11/2024 2:00 AM EDT [facility] [address] [place] [phone] [place] Mckeon RN [address] [place] [address] [email or web address] 08/18/2024 1:30 AM EDT Home [facility] [address] [place] [phone] [place] Mckeon, RENZO [address] [place] [address] [email or web address] 08/25/2024 1:00 AM EDT Home Care Visit [facility] [address] [place] [phone] [place] MckeonRENZO [address] [place] [address] 09/01/2024 12:30 AM EDT Appointment [facility] [address] [place] [phone] [place] Mckeon RN [address] [place] [address] 09/18/2024 2:30 PM EDT Office Visit [facility] Infectious Diseases 22 [place] [address] Daan Rucker FNP 15 [facility], 2nd [place] [address] 11/26/2024 3:30 PM EDT Office Visit [address] [place] [address] Keren Poon, ORI [address] [address] 12/11/2024 2:00 PM EDT Appointment [facility], [facility]- [address] [address] Keren Poon, ORI [address] [address] 01/07/2025 2:30 PM EDT Office Visit [facility] [address] [place] [address] Jose Thakur MD 30 [place] [address] 06/03/2025 2:00 PM EST Office Visit [address] [place] [address] Keren Poon, GEOTHERMAL HEAT PUMP MACHINIST 170 [facility], 2nd [place] [address] [email or web address] documented as of this encounter Procedures Procedure [...]
--- OUTSIDE RECORDS SUMMARY | 2024-07-28 12:09 | XMS_ITS | Encounter Summary ---
Author Organization [facility] Address [address] [place] [address] Phone Care Team Providers Care Credit Verification Clerk Name Role Phone Patrick Sanchez MD Unavailable [phone] Charly Saxena DO Primary Care Provider [phone] Cheryl Calderon MD Primary Care Provider Keren Mabry MD Unavailable Louisa Hogan MD Unavailable Charly Saxena DO Unavailable [phone] Abhinav Muhammad MD Unavailable [phone] Cheryl Giraldo NP Unavailable Wilfrido Steel MD Unavailable [phone] Sharon Martin PA-C Unavailable Ita Pineda CNP Primary Care Provider Cash Fernandes MD Unavailable [phone] Seven Menchaca MD Unavailable Chavo Jack MD Primary Care Provider Jerseyjayjay Kerenrex Glaser [facility] Primary Care Provid er Chavo Jack MD Unavailable Willi Wells MD Unavailable Jose Thakur MD Unavailable [phone] Dana Rucker TRAFFIC ATTENDANT Unavailable Jonathan Alvarez MD Unavailable [phone] Anival Borja MD Unavailable Lyndsay Reynoso TRAFFIC ATTENDANT Unavailable Gutierrez Pittman MD Unavailable Encounter Details Date Type Department Care Team (Late st Contact Info) Description 12/20/2017 Procedure Pass [facility] Periop 6th floor [address] [place] [address] Social History Tobacco Use Types Packs/Day Years [...] (Late Contact Info) Description 06/06/2024 Procedure Pass [address] [address] 07/28/2024 1:00 PM EDT Home [facility] [address] [place] [phone] Trice De Santiago LPN 168 [place] [address] 07/30/2024 3:30 PM EDT Office Visit [facility] [address] [place] [address] [place] [address] Keren Poon, CUSTOMER CARE SPECIALIST 170 [facility], 2nd [place] [address] 08/04/2024 2:30 AM EDT Home Care Visit [facility] 30 [place] [address] [place] Mckeon RN 168 [place] [address] [email or web address] 08/11/2024 2:00 AM EDT Home [facility] [address] [place] [phone] [place] Mckeon RN [address] [place] [address] [email or web address] 08/18/2024 1:30 AM EDT Home [facility] [address] [place] [phone] [place] Mckeon RN [address] [place] [address] [email or web address] 08/25/2024 1:00 AM EDT Home Care [facility] [address] [place] [phone] [place] Mckeon RN [address] [place] [address] [email or web address] 09/01/2024 12:30 AM EDT Appointment [facility] [address] [place] [phone] [place] Mckeon, RENZO [address] [place] [address] [email or web address] 09/18/2024 2:30 PM EDT Office Visit [facility] Infectious Diseases [address] [place] [address] Dana Rucker, DIVYA [address] [address] 11/26/2024 3:30 PM EDT Office Visit [address] [place] [address] Keren Poon CNP [address] [place] [address] 12/11/2024 2:00 PM EDT Appointment [address] [address] Keren Poon, ORI [address] [place] [address] 01/07/2025 2:30 PM EDT Office Visit [facility] [address] [place] [address] Jose Thakur MD [address] [place] [address] 06/03/2025 2:00 PM EST Office Visit [address] [place] [address] Keren Poon, ORI [address] [place] [address] documented as of this encounter Visit Diagnoses [...] AM EDT documented as of this encounter Care Teams Credit Verification Clerk Relationship Specialty Start Date End Date Charly Saxena DO [address] [address] PCP - General Internal Medicine 10/05/14 04/22/18 Cheryl Calderon MD [address] [place] [address] PCP - General Family Medicine 04/23/18 08/18/20 Ita Pineda CNP 40 [place] [address] [email or web address] PCP - General Internal Medicine 08/19/20 09/17/22 Chavo Jack MD 40 [place] [address] PCP - General Internal Medicine 09/18/22 01/30/23 Keren Poon CNP [address] [place] [address], 2nd [place] [address] PCP - General Family Medicine 01/31/23 Patrick Sanchez MD [address] [place] [address] of [place] [address] [email or web address] Historical LMR Provider 09/10/14 Keren Mabry MD [address] [place] [address] Historical LMR Provider 07/10/18 Louisa Hogan MD [address] [place] [address] [email or web address] Historical LMR Provider 07/10/1807/29 [place] [address] [place] [address] 301 [place] [address] Historical LMR Provider 07/10/18 Abhinav Muhammad MD [address] [place] [address] 104 [place] [address] [email or web address] Historical LMR Provider 07/10/18 08/22/20 Cheryl Giraldo NP [address] [place] [address] Historical LMR Provider 07/10/18 Wilfrido Steel MD [address] [place] [address] Historical LMR Provider 07/10/18 Sharon Martin PA-C [address] [place] [address] Historical LMR Provider 07/10/18 08/22/20 Cash Fernandes MD [address] [place] [address] Gastroenterology 08/23/20 Seven Menchaca MD 40 [place] [address] Insurance Assigned Provider 08/04/22 08/03/23 Chavo Jack MD 40 [place] [address] Insurance Assigned Provider 08/03/23 05/04/24 Willi Wells MD [address] [place] [address] Rheumatology 02/04/24 Jose Thakur MD [address] [place] [address] Telecommunications Sales Representative Pulmonary Disease 03/17/24 Dana Rucker FNP 15 [facility], 2nd [place] [address] Nurse Practitioner Infectious Diseases 05/21/24 Jonathan Alvarez MD [address] [place] [address], [address] [place] [address] [email or web address] Urology 05/14/23 Anival Borja MD [address] [place] [address], [address] [place] [address] [email or web address] Neurologist Neurology 01/04/23 Lyndsay Reynoso FNP [address] [place] [address] [place] [address] [email or web address] Nurse Practitioner Pain Medicine 05/27/22 Gutierrez Pittman MD 40 [place] [address] Parts Delivery Driver Cardiology 05/27/24 documented as of this encounter Additional Source Comments The information contained in this document represents components of the legal health record. It is not the complete legal health record.[facility]
--- OUTSIDE RECORDS SUMMARY | 2024-07-28 12:09 | XMS_ITS | Encounter Summary ---
Author Organization [facility] Address [address] [place] [address] Phone Care Team Providers Care Shipping Processor Name Role Phone Cash Fernandes MD Unavailable [phone] Seven Menchaca MD Unavailable Chavo Jack MD Primary Care Provider Keren Poon [facility] Primary Care Provid er Chavo Jack MD Unavailable Willi Wells MD Unavailable Jose Thakur MD Unavailable Dana Rucker SIGNAL OPERATOR Unavailable Jonathan Alvarez MD Unavailable [phone] Anival Borja MD Unavailable Lyndsay Reynoso SIGNAL OPERATOR Unavailable Gutierrez Pittman MD Unavailable [phone] Encounter Details Date Type Department Care Team (Late st Contact Info) Description 01/08/2023 Procedure Pass [facility] Endoscopy Admitting Dept Virtual Department [address] [place] [address] Social History Tobacco Use Types Packs/Day Years [...] st Contact Info) Description 06/06/2024 Procedure Pass [facility], [facility]- [address] [address] 07/28/2024 1:00 PM EDT [facility] [address] [place] [address] Trice De Santiago LPN 168 [place] [address] 07/30/2024 3:30 PM EDT Office Visit [facility] [address] [place], [place] [address] [address] Keren Poon, HARDWARE DEVELOPER 170 [facility] [place] [facility], 2nd [place] [address] 08/04/2024 2:30 AM EDT [facility] [address] [place] [address] [place] Mckeon RN [address] [place] [address] 08/11/2024 2:00 AM EDT [facility] [address] [place] [address] [place] Mckeon RN 168 [place] [address] 08/18/2024 1:30 AM EDT [facility] [address] [place] [address] [place] Mckeon RN 168 [place] [address] 08/25/2024 1:00 AM EDT [facility] 30 [place], [place] [phone] [place] Mckeon RN 168 [place] [address] 09/01/2024 12:30 AM EDT Appointment [facility] [address] [place] [address] [place] Mckeon RN 168 [place] [address] 09/18/2024 2:30 PM EDT Office Visit [facility] Infectious Diseases 22 [place] [address] Dana Rucker, SIGNAL OPERATOR [address] [address] 11/26/2024 3:30 PM EDT Office Visit [facility] [address] [place] [address] [place] [address] Keren Poon, HARDWARE DEVELOPER [address] [place] [address] 12/11/2024 2:00 PM EDT Appointment [facility] 30 [place] [address] Keren Poon, HARDWARE DEVELOPER [address] [address] 01/07/2025 2:30 PM EDT Office Visit [facility] [address] [place] [address] Jose Thakur MD 30 [place] [address] 06/03/2025 2:00 PM EST Office Visit [facility] [address] [place] [address] Dr [place] [address] Keren Poon CNP 170 [facility] [place] [facility], 2nd Floor [place] [email or web address] documented as of this encounter Visit Diagnoses [...] 07/10/2024 07/10/2024 07/10/2024 11:0 0 AM EDT Assessment Noted Time PHQ-9 Depression Total Score: 26 023 12:21 PM EDT PHQ-2 Depression Total Score: 6 12/06/19 23 12:21 PM EDT documented as of this encounter Care Teams Shipping Processor Relationship Specialty Start Date End Date Chavo Jack MD 40 [place] [address] [email or web address] PCP - General Internal Medicine 09/18/22 01/30/23 Keren Poon CNP 170 [facility], [address]nd [place] [address] [email or web address] PCP - General Family Medicine 01/31/23 Cash Fernandes MD [address] [place] [address] [email or web address] Gastroenterology 08/23/20 Seven Menchaca MD 40 [place] [address] [email or web address] Insurance Assigned Provider 08/04/22 08/03/23 Chavo Jack MD 40 [place] [address] [email or web address] Insurance Assigned Provider 08/03/23 05/04/24 Willi Wells MD [address] [place], [place] [address] [address] Rheumatology 02/04/24 Jose Thakur MD [address] [place] [address] [email or web address] Software Engineer Sales Pulmonary Disease 03/17/24 Dana Rucker FNP [address] [place] [address], 2nd [place] [address] [email or web address] Nurse Practitioner Infectious Diseases 05/21/24 Jonathan Alvarez MD [address] [place] [address], [address] [address] [email or web address] Urology 05/14/23 Anival Borja MD [address] [place] [address], [address] [place] [address] [email or web address] Neurologist Neurology 01/04/23 Lyndsay Reynoso FNP [address] [place] [address] [email or web address] Nurse Practitioner Pain Medicine 05/27/22 Gutierrez Pittman MD 40 [place] [address] Channel Supervisor Cardiology 05/27/24 documented as of this encounter Additional Source Comments The information contained in this document represents components of the legal health record. It is not the complete legal health record.[facility]
--- OUTSIDE RECORDS SUMMARY | 2024-07-28 12:09 | XMS_ITS | Encounter Summary ---
Author Organization [facility] Address [address] [place] [address] Phone Care Team Providers Care Checkout Operator Name Role Phone Cash Fernandes MD Unavailable [phone] Keren Poon [facility] Primary Care Provid er Chavo Jack MD Unavailable Willi Wells MD Unavailable Jose Thakur MD Unavailable Dana Rucker COIN PURSE ASSEMBLER Unavailable Jonathan Alvarez MD Unavailable [phone] Anival Borja MD Unavailable Lyndsay Reynoso COIN PURSE ASSEMBLER Unavailable Gutierrez Pittman MD Unavailable [phone] Encounter Details Date Type Department Care Team (Late st Contact Info) Description 01/06/2024 Procedure Pass [facility] Endoscopy Admitting Dept [facility] Department [address] [place] [address] Social History Tobacco Use Types Packs/Day Years [...] 06/06/2024 Procedure Pass [facility], [address] [address] 07/28/2024 1:00 PM EDT [facility] [address] [place] [phone] Trice De Santiago LPN 168 [place] [address] [email or web address] 07/30/2024 3:30 PM EDT Office Visit [facility] [address] [place] [address] [place] [address] Keren Poon, ANGLESMITH HELPER [address] [place] [address], 2nd [place] [address] [email or web address] 08/04/2024 2:30 AM EDT [facility] [address] [place] [address] [place] Mckeon RN 168 [place] [address] [email or web address] 08/11/2024 2:00 AM EDT Home Care [facility] [address] [place] [address] [place] Mckeon RN 168 [place] [address] [email or web address] 08/18/2024 1:30 AM EDT [facility] [address] [place] [address] [place] Mckeon RN 168 [place] [address] 08/25/2024 1:00 AM EDT Home Care Visit [facility] 30 [place], [place] [phone] [place] Mckeon RN 168 [place] [address] 09/01/2024 12:30 AM EDT Appointment [facility] 30 [place], [place] [phone] [place] Mckeon RN 168 [place] [address] 09/18/2024 2:30 PM EDT Office Visit [facility] Infectious Diseases [address] [place] [address] Dana Rucker, COIN PURSE ASSEMBLER [address] [address] 11/26/2024 3:30 PM EDT Office Visit [facility] [address] [place] [address] [place] [address] Keren Poon, ANGLESMITH HELPER [address] [address] 12/11/2024 2:00 PM EDT Appointment [facility] 30 [place] [address] Keren Poon, ANGLESMITH HELPER 170 [facility], [address] [place] [address] 01/07/2025 2:30 PM EDT Office Visit [facility] [address] [place] [address] Jose Thakur MD 30 [place] [address] [email or web address] 06/03/2025 2:00 PM EST Office Visit [facility] [address] [place] [address] Dr [place] [address] Keren Poon CNP 170 [facility], [address] [place] [address] documented as of this encounter Visit Diagnoses [...] documented as of this encounter Care Teams Checkout Operator Relationship Specialty Start Date End Date Keren Poon CNP [address] [place], [place] [address] [address] PCP - General Family Medicine 01/31/23 Cash Fernandes MD [address] [place] [address] Gastroenterology 08/23/20 Chavo Jack MD [address] [place] [address] [email or web address] Insurance Assigned Provider 08/03/23 05/04/24 Willi Wells MD [address] [place] [address] Drive [address] 304_[place] [address] Rheumatology 02/04/24 Jose Thakur MD [address] [place] [address] Bag Tester Pulmonary Disease 03/17/24 Dana Rucker FNP [address] [place] [address], 2nd [place] [address] [email or web address] Nurse Practitioner Infectious Diseases 05/21/24 Jonathan Alvarez MD [address] [place] [address], [address] [place] [address] [email or web address] Urology 05/14/23 Anival Borja MD [address] [place] [address], [address] [place] [address] Neurologist Neurology 01/04/23 Lyndsay Reynoso FNP [address] [place] [address] [address] [place] [place] [address] [email or web address] Nurse Practitioner Pain Medicine 05/27/22 Gutierrez Pittman MD 40 [place] [address] Electrician Second Cardiology 05/27/24 documented as of this encounter Additional Source Comments The information contained in this document represents components of the legal health record. It is not the complete legal health record.[facility]
--- OUTSIDE RECORDS SUMMARY | 2024-07-28 12:09 | XMS_ITS | Encounter Summary ---
Author Organization [facility] Address [address] [place] [address] Phone Care Team Providers Care Fast Food Fry Cook Name Role Phone Patrick Sanchez MD Unavailable [phone] Charly Saxena DO Primary Care Provider Cheryl Calderon MD Primary Care Provider Keren Mabry MD Unavailable Louisa Hogan MD Unavailable [phone] Charly Saxena DO Unavailable [phone] Abhinav Muhammad MD Unavailable [phone] Cheryl Giraldo NP Unavailable Wilfrido Steel MD Unavailable [phone] Sharon Martin PA-C Unavailable Ita Pineda CNP Primary Care Provider Cash Fernandes MD Unavailable [phone] Seven Menchaca MD Unavailable Chavo Jack MD Primary Care Provider [phone] Cleve Kerenrex Glaser [facility] Primary Care Provid er Chavo Jack MD Unavailable Willi Wells MD Unavailable Jose Thakur MD Unavailable Dana Rucker HEEL SEAT FITTER Unavailable Jonathan Alvarez MD Unavailable [phone] Anival Borja MD Unavailable [phone] Lyndsay Reynoso HEEL SEAT FITTER Unavailable Gutierrez Pittman MD Unavailable Encounter Details Date Type Department Care Team (Late st Contact Info) Description 12/27/2017 Ancillary Orders [facility] Orthopedics at [address] [address] Patrick Sanchez MD [address] [place] [address] Department [place] [address] [email or web address] Social History Tobacco [...] Info) Description 06/06/2024 Procedure Pass [facility], [address] [address] 07/28/2024 1:00 PM EDT [facility] [address] [place] [phone] Trice De Santiago LPN [address] [place] [address] 07/30/2024 3:30 PM EDT Office Visit [facility] [address] [place] [address] [place] [address] Cleve Kerenelsie Glaser, COACH 170 [facility], 2nd [place] [address] 08/04/2024 2:30 AM EDT Home Care Visit [facility] [address] [place] [phone] Orlando Mckeon RN [address] [place] [address] 08/11/2024 2:00 AM EDT Home Care Visit [facility] [address] [place] [address] Orlando Mckeon RN [address] [place] [address] 08/18/2024 1:30 AM EDT Home Care Visit [facility] [address] [place] [phone] Orlando Mckeon RN [address] [place] [address] 08/25/2024 1:00 AM EDT Home Care Visit [facility] [address] [place] [phone] Orlando Mckeon RN [address] [place] [address] 09/01/2024 12:30 AM EDT Appointment [facility] [address] [place] [address] Orlando Mckeon RN [address] [place] [address] 09/18/2024 2:30 PM EDT Office Visit [facility] Infectious Diseases [address] [place] [address] Dana Rucker, HEEL SEAT FITTER 15 [facility], [address] [place] [address] 11/26/2024 3:30 PM EDT Office Visit [address] [place] [address] Keren Poon, ORI [address] [place] [address] 12/11/2024 2:00 PM EDT Appointment [facility] 30 [place] [address] Keren Poon, ORI [address] [place] [address] 01/07/2025 2:30 PM EDT Office Visit [facility] Allergy [facility] Critical Care Medicine [address] [place] [address] Jose Thakur MD 30 [place] [address] 06/03/2025 2:00 PM EST Office Visit [address] [place] [address] Keren Poon, ORI [address] [place] [address] documented as of this encounter Results * [place] Fluoroscopy Less Than 1 Hour (12/27/2017 9:03 AM EDT) Narrative CRYSTAL - 12/27/2017 9:04 AM EDT Fluoroscopy was provided during this procedure. Patrick YAÑEZ [facility] [email or web address] documented in this encounter Visit Diagnoses Diagnosis [...] documented as of this encounter Care Teams Fast Food Fry Cook Relationship Specialty Start Date End Date Charly Saxena DO [address] [address] PCP - General Internal Medicine 10/05/14 04/22/18 Cheryl Calderon MD [address] [place] [address] PCP - General Family Medicine 04/23/18 08/18/20 Miriam Ita LeslieORI [address] [place] [address] [email or web address] PCP - General Internal Medicine 08/19/20 09/17/22 Chavo Jack MD 40 [place] [address] [email or web address] PCP - General Internal Medicine 09/18/22 01/30/23 Keren Poon CNP [address] [place] [address], 2nd [place] [address] [email or web address] PCP - General Family Medicine 01/31/23 Patrick Sanchez MD [address] [place] [address] Department [place] [address] [email or web address] Historical LMR Provider 09/10/14 Keren Mabry MD [address] [place] [address] Historical LMR Provider 07/10/18 Louisa Hogan MD [facility]0 [place] [address] [email or web address] Historical LMR Provider 07/10/1807/29 Charly Saxena DO [address] [address] Historical LMR Provider 07/10/18 Abhinav Muhammad MD 115 [facility] 104 [place] [address] [email or web address] Historical LMR Provider 07/10/18 08/22/20 Cheryl Giraldo, ACCESS DATABASE DEVELOPER [address] [place] [address] Historical LMR Provider 07/10/18 Wilfrido Steel MD [address] [place] [address] Historical LMR Provider 07/10/18 Sharon Martin PA-C [address] [address] [email or web address] Historical LMR Provider 07/10/18 08/22/20 Cash Fernandes MD [address] [place] [address] [email or web address] Gastroenterology 08/23/20 Seven Menchaca MD [address] [place] [address] Insurance Assigned Provider 08/04/22 08/03/23 Chavo Jack MD [address] [place] [address] Insurance Assigned Provider 08/03/23 05/04/24 Willi [place] MD [address]_[place] [address] Rheumatology 02/04/24 Jose Thakur MD 30 [place] [address] Training Associate Pulmonary Disease 03/17/24 Dana Rucker FNP 15 [facility], 2nd [place] [address] Nurse Practitioner Infectious Diseases 05/21/24 Jonathan Alvarez MD [address] [place] [address], [address] [place] [address] Urology 05/14/23 Anival Borja MD [address] [place] [address], [address] [place] [address] Neurologist Neurology 01/04/23 Lyndsay Reynoso FNP [address] [place] [address] [email or web address] Nurse Practitioner Pain Medicine 05/27/22 Gutierrez Pittman MD [address] [place] [address] Power Switchboard Operator Cardiology 05/27/24 documented as of this encounter Additional Source Comments The information contained in this document represents components of the legal health record. It is not the complete legal health record.[facility]
--- OUTSIDE RECORDS SUMMARY | 2024-07-28 12:10 | XMS_ITS | Encounter Summary ---
Author Organization [facility] Address [address] [place] [address] Care Team Providers Care Funding Coordinator Name Role Phone Charly Saxena Primary Care Provider [phone] Cheyrl Calderon MD Primary Care Provider [phone] Encounter Details Date Type Department Care Team (Late st Contact Info) Description 02/10/2015 Orders Only [facility] Rheumatology [address] [place] [address] Abel Fierro MD 5 [place] [address] Social History Tobacco Use Types Packs/Day Years [...] of this encounter Progress Notes * Luz Velasoc - ANA MARIA - 02/11/2015 4:27 PM [...] EDT) C reactive protein 0.45 <0.80 mg/dL [facility] Comment: {C-REACTIVE PROTEIN {[id number]) Please be advised that patients taking Carboxypenicillins may exhibit falsely decreased C-Reactive Protein levels due to an analytical interference in this assay. 02/10/2015 12:2 9 PM EDT 02/10/2015 9:25 PM EDT Narrative Resulting Agency Comment [id number] us Abel Fierro MD LABORATORY Final Result Performing Organization Address [facility] Co de Phone Number [facility] [address] [place] [address] * ERYTHROCYTE SEDIMENTATION RATE (ESR), WESTERGREN (02/10/2015 12:29 PM EDT) Sedimentation Rate [place]ren (ESR) 6 < OR = 30 mm/h [facility] Comment:{SED RATE BY MODIFIE D WESTERGREN {[id number]) 02/10/2015 12:2 9 PM EDT 02/10/2015 9:25 PM EDT Narrative Resulting Agency Comment [id number] us Abel Fierro MD LAB SAME DAY RESULT Final Resul t Performing Organization Address [facility] de Phone Number [facility] [address] [place] [address] * CREATININE WITH GLOMERULAR FILTRATION RATE, ESTIMATED (EGFR) (02/10/2015 12:29 PM EDT) Creatinine 0.80 0.50 - 0.99 mg/dL [facility] Comment: {CREATININE {[id number]) For patients >49 years of age, the reference limit for Creatinine is approximately 13% higher for people identified as -Azerbaijani. GFR 80 > OR = 60 mL/min/1. 73m2 [facility] Comment:{eGFR NON-AFR. AMERI CAN {[id number]) GFR () 93 > OR = 60 mL/min/1. 73m2 [facility] Comment:{eGFR AMERIC AN {[id number]) 02/10/2015 12:2 9 PM EDT 02/10/2015 9:25 [...] needs for GFR calculation. Resulting Agency Comment [id number] Abel Fierro MD LAB SAME DAY RESULT Final Resul t Performing Organization Address [facility] de Phone Number [facility] [address] [place] [address] * (ABNORMAL) ALANINE AMINOTRANSFERASE (ALT), SERUM (02/10/2015 12:29 PM EDT) ALT (SGPT) 37(H) 6 - 29 U/L [facility] Comment:{ALT {[id number]) 02/10/2015 12:2 9 PM EDT 02/10/2015 9:25 PM EDT Narrative Resulting Agency Comment [id number] Abel Fierro MD LAB SAME DAY RESULT Final Resul t Performing Organization Address [facility] de Phone Number [facility] [address] [place] [address] * ASPARTATE AMINOTRANSFERASE (AST), SERUM (02/10/2015 12:29 PM EDT) AST (SGOT) 26 10 - 35 U/L [facility] Comment:{AST {[id number]) 02/10/2015 12:2 9 PM EDT 02/10/2015 9:25 PM EDT Narrative Resulting Agency Comment [id number] Abel Fierro MD LAB SAME DAY RESULT Final Resul t Performing Organization Address [facility] de Phone Number [facility] [address] [place] [address] * (ABNORMAL) CBC INCLUDES DIFFERENTIAL AND PLATELET COUNT (02/10/2015 12:29 PM EDT) WBC 10.5 3.8 - 10.8 Thousand/ uL [facility] Comment:{WHITE BLOOD CELL CO UNT {[id number]) RBC 6.07(H) 3.80 - 5.10 Million/u L [facility] Comment:{RED BLOOD CELL COUN T {[id number]) Hemoglobin 15.7(H) 11.7 - 15.5 g/dL [facility] Comment:{HEMOGLOBIN {[id number]) Hematocrit 48.6(H) 35.0 - 45.0 % [facility] Comment:{HEMATOCRIT {[id number]) MCV 80.1 80.0 - 100.0 fL [facility] Comment:{MCV {[id number]) MCH 25.8(L) 27.0 - 33.0 pg [facility] Comment:{MCH {[id number]) MCHC 32.2 32.0 - 36.0 g/dL [facility] Comment:{MCHC {[id number]) RDW 15.6(H) 11.0 - 15.0 % [facility] Comment:{RDW {[id number]) PLT 347 140 - 400 Thousand/ uL [facility] Comment:{PLATELET COUNT {[id number]) MPV 7.6 7.5 - 11.5 fL [facility] Comment:{MPV {[id number]) Neutrophils # 7455 1500 - 7800 cells/uL [facility] Comment:{ABSOLUTE NEUTROPHIL S {[id number]) Lymphocytes # 1932 850 - 3900 cells/uL [facility] Comment:{ABSOLUTE LYMPHOCYTE S {[id number]) Monocytes # 861 200 - 950 cells/uL [facility] Comment:{ABSOLUTE MONOCYTES {[id number]) Eosinophils # 221 15 - 500 cells/uL [facility] Comment:{ABSOLUTE EOSINOPHIL S {[id number]) Basophils # 32 0 - 200 cells/uL [facility] Comment:{ABSOLUTE BASOPHILS {[id number]) Neutrophils % 71.0 % [facility] Comment:{NEUTROPHILS {[id number]) Lymphocytes % 18.4 % [facility] Comment:{LYMPHOCYTES {[id number]) Monocytes % 8.2 % [facility] Comment:{MONOCYTES {[id number]) Eosinophils % 2.1 % [facility] Comment:{EOSINOPHILS {[id number]) Basophils % 0.3 % [facility] Comment:{BASOPHILS {[id number]) 02/10/2015 12:2 9 PM EDT 02/10/2015 9:25 PM EDT Narrative Resulting Agency Comment [id number] us Abel Fierro MD LAB SAME DAY RESULT Final Resul t [facility] [address] [place] [address] documented in this encounter Visit Diagnoses Diagnosis Rheumatoid arthritis involving both feet, unspecified rheumatoid factor presence (HCC) [M06.071, M06.072] documented in this encounter Care Teams Funding Coordinator Relationship Specialty Start Date End Date Charly Saxena [facility] [address] [place] [address] PCP - General Internal Medicine 05/25/13 07/16/17 Cheryl Calderon MD [facility] Medicine [address] [place] [address] PCP - General Internal Medicine 07/17/17 documented as of this encounter
--- OUTSIDE RECORDS SUMMARY | 2024-07-28 12:10 | XMS_ITS | Encounter Summary ---
Author Organization [facility] Address [address] [place] [address] Care Team Providers Care Patcher Name Role Phone Charly Saxena Primary Care Provider [phone] Cheryl Calderon MD Primary Care Provider [phone] Encounter Details Date Type Department Care Team (Late st Contact Info) Description 05/25/2013 Orders Only [facility] Rheumatology [address] [place] [address] Abel Fierro MD [address] [place] [address] Social History Tobacco Use Types Packs/Day Years [...] of this encounter Procedures * Due to [place] state law, this [...] in this encounter Results * Due to [place] state law, this organization might not be sharing negative HIV tests. * CREATININE WITH GLOMERULAR FILTRATION RATE, ESTIMATED (EGFR) (05/25/2013 2:20 PM EST) Creatinine 0.90 0.50 - 1.05 mg/dL [facility] Comment: {CREATININE {[id number]) For patients >49 years of age, the reference limit for Creatinine is approximately 13% higher for people identified as -Indonesian. GFR 70 > OR = 60 mL/min/1. 73m2 [facility] Comment:{eGFR NON-AFR. AMERI CAN {[id number]) GFR () 82 > OR = 60 mL/min/1. 73m2 [facility] Comment:{eGFR AMERIC AN {[id number]) 05/25/2013 2:20 PM EST 05/25/2013 6:51 PM [...] needs for GFR calculation. Resulting Agency Comment [id number] us Abel Fierro MD LAB SAME DAY RESULT Final Resul t [facility] [address] [place] [address] * (ABNORMAL) CBC INCLUDES DIFFERENTIAL AND PLATELET COUNT (05/25/2013 2:20 PM EST) WBC 14.5(H) 3.8 - 10.8 Thousand/ uL [facility] Comment:{WHITE BLOOD CELL CO UNT {[id number]) RBC 5.63(H) 3.80 - 5.10 Million/u L [facility] Comment:{RED BLOOD CELL COUN T {[id number]) Hemoglobin 14.6 11.7 - 15.5 g/dL [facility] Comment:{HEMOGLOBIN {[id number]) Hematocrit 46.7(H) 35.0 - 45.0 % [facility] Comment:{HEMATOCRIT {[id number]) MCV 82.8 80.0 - 100.0 fL [facility] Comment:{MCV {[id number]) MCH 26.0(L) 27.0 - 33.0 pg [facility] Comment:{MCH {[id number]) MCHC 31.4(L) 32.0 - 36.0 g/dL [facility] Comment:{MCHC {[id number]) RDW 15.0 11.0 - 15.0 % [facility] Comment:{RDW {[id number]) PLT 395 140 - 400 Thousand/ uL [facility] Comment:{PLATELET COUNT {[id number]) MPV 7.4(L) 7.5 - 11.5 fL [facility] Comment:{MPV {[id number]) Neutrophils # [address](H) 1500 - 7800 cells/uL [facility] Comment:{ABSOLUTE NEUTROPHIL S {[id number]) Lymphocytes # 1291 850 - 3900 cells/uL [facility] Comment:{ABSOLUTE LYMPHOCYTE S {[id number]) Monocytes # 595 200 - 950 cells/uL [facility] Comment:{ABSOLUTE MONOCYTES {[id number]) Eosinophils # 102 15 - 500 cells/uL [facility] Comment:{ABSOLUTE EOSINOPHIL S {[id number]) Basophils # 29 0 - 200 cells/uL [facility] Comment:{ABSOLUTE BASOPHILS {[id number]) Neutrophils % 86.1 % [facility] Comment:{NEUTROPHILS {[id number]) Lymphocytes % 8.9 % [facility] Comment:{LYMPHOCYTES {[id number]) Monocytes % 4.1 % [facility] Comment:{MONOCYTES {[id number]) Eosinophils % 0.7 % [facility] Comment:{EOSINOPHILS {[id number]) Basophils % 0.2 % [facility] Comment:{BASOPHILS {[id number]) 05/25/2013 2:20 PM EST 05/25/2013 6:51 PM EST Narrative Resulting Agency Comment [id number] us Abel Fierro MD LAB SAME DAY RESULT Final Resul t Performing Organization Address City/[facility] Co de Phone Number [facility] [address] [place] [address] * ALANINE AMINOTRANSFERASE (ALT), SERUM (05/25/2013 2:20 PM EST) ALT (SGPT) 21 6 - 29 U/L [facility] Comment:{ALT {[id number]) 05/25/2013 2:20 PM EST 05/25/2013 6:51 PM EST Narrative Resulting Agency Comment [id number] us Abel Fierro MD LAB SAME DAY RESULT Final Resul t Performing Organization Address [facility] de Phone Number [facility] [address] [place] [address] * ASPARTATE AMINOTRANSFERASE (AST), SERUM (05/25/2013 2:20 PM EST) AST (SGOT) 21 10 - 35 U/L [facility] Comment:{AST {[id number]) 05/25/2013 2:20 PM EST 05/25/2013 6:51 PM EST Narrative Resulting Agency Comment [id number] Abel Fierro MD LAB SAME DAY RESULT Final Resul t Performing Organization Address [facility] de Phone Number [facility] [address] [place] [address] documented in this encounter Visit Diagnoses Diagnosis Rheumatoid arthritis(714.0) Rheumatoid arthritis documented in this encounter Care Teams Patcher Relationship Specialty Start Date End Date Charly Saxena [facility] [address] [place] [address] PCP - General Internal Medicine 05/25/13 07/16/17 Cheryl Calderon MD [facility] Medicine [address] [place] [address] PCP - General Internal Medicine 07/17/17 documented as of this encounter
--- OUTSIDE RECORDS SUMMARY | 2024-07-28 12:10 | XMS_ITS | Encounter Summary ---
Author Organization [facility] Address [address] [place] [address] Care Team Providers Care Cognos Architect Name Role Phone Charly Saxena Primary Care Provider [phone] Cheryl Calderon MD Primary Care Provider [phone] Encounter Details Date Type Department Care Team (Late st Contact Info) Description 01/18/2016 Orders Only [facility] Rheumatology [address] [place] [address] Abel Fierro MD [address] [place] [address] Social History Tobacco Use Types Packs/Day Years [...] - 0.99 mg/dL [facility] Comment: {CREATININE {[id number]) For patients >49 years of age, the reference limit for Creatinine is approximately 13% higher for people identified as -Citizen Of [place]. GFR 81 > OR = 60 mL/min/1. 73m2 [facility] Comment:{eGFR NON-AFR. AMERI CAN {[id number]) GFR () 94 > OR = 60 mL/min/1. 73m2 [facility] Comment:{eGFR AMERIC AN {[id number]) 01/18/2016 1:17 PM EDT 01/18/2016 9:39 PM [...] needs for GFR calculation. Resulting Agency Comment [id number] us Abel Fierro MD LAB SAME DAY RESULT Final Resul t [facility] [address] [place] [address] * (ABNORMAL) ALANINE AMINOTRANSFERASE (ALT), SERUM (01/18/2016 1:17 PM EDT) ALT (SGPT) 48(H) 6 - 29 U/L [facility] Comment:{ALT {[id number]) 01/18/2016 1:17 PM EDT 01/18/2016 9:39 PM EDT Narrative Resulting Agency Comment [id number] us Abel Fierro MD LAB SAME DAY RESULT Final Resul t Performing Organization Address City/[facility] Co de Phone Number [facility] [address] [place] [address] * ASPARTATE AMINOTRANSFERASE (AST), SERUM (01/18/2016 1:17 PM EDT) AST (SGOT) 27 10 - 35 U/L [facility] Comment:{AST {[id number]) 01/18/2016 1:17 PM EDT 01/18/2016 9:39 PM EDT Narrative Resulting Agency Comment [id number] us Abel Fierro MD LAB SAME DAY RESULT Final Resul t Performing Organization Address [facility] Co de Phone Number [facility] [address] [place] [address] * (ABNORMAL) CBC INCLUDES DIFFERENTIAL AND PLATELET COUNT (01/18/2016 1:17 PM EDT) WBC 11.4(H) 3.8 - 10.8 Thousand/ uL [facility] Comment:{WHITE BLOOD CELL CO UNT {[id number]) RBC 5.40(H) 3.80 - 5.10 Million/u L [facility] Comment:{RED BLOOD CELL COUN T {[id number]) Hemoglobin 14.3 11.7 - 15.5 g/dL [facility] Comment:{HEMOGLOBIN {[id number]) Hematocrit 45.8(H) 35.0 - 45.0 % [facility] Comment:{HEMATOCRIT {[id number]) MCV 84.8 80.0 - 100.0 fL [facility] Comment:{MCV {[id number]) MCH 26.5(L) 27.0 - 33.0 pg [facility] Comment:{MCH {[id number]) MCHC 31.3(L) 32.0 - 36.0 g/dL [facility] Comment:{MCHC {[id number]) RDW 16.5(H) 11.0 - 15.0 % [facility] Comment:{RDW {[id number]) PLT 289 140 - 400 Thousand/ uL [facility] Comment:{PLATELET COUNT {[id number]) MPV 8.4 7.5 - 11.5 fL [facility] Comment:{MPV {[id number]) Neutrophils # 9793(H) 1500 - 7800 cells/uL [facility] Comment:{ABSOLUTE NEUTROPHIL S {[id number]) Lymphocytes # 809(L) 850 - 3900 cells/uL [facility] Comment:{ABSOLUTE LYMPHOCYTE S {[id number]) Monocytes # 638 200 - 950 cells/uL [facility] Comment:{ABSOLUTE MONOCYTES {[id number]) Eosinophils # 91 15 - 500 cells/uL [facility] Comment:{ABSOLUTE EOSINOPHIL S {[id number]) Basophils # 68 0 - 200 cells/uL [facility] Comment:{ABSOLUTE BASOPHILS {[id number]) Neutrophils % 85.9 % [facility] Comment:{NEUTROPHILS {[id number]) Lymphocytes % 7.1 % [facility] Comment:{LYMPHOCYTES {[id number]) Monocytes % 5.6 % [facility] Comment:{MONOCYTES {[id number]) Eosinophils % 0.8 % [facility] Comment:{EOSINOPHILS {[id number]) Basophils % 0.6 % [facility] Comment:{BASOPHILS {[id number]) 01/18/2016 1:17 PM EDT 01/18/2016 9:39 PM EDT Narrative Resulting Agency Comment [id number] us Abel Fierro MD LAB SAME DAY RESULT Final Resul t [facility] [address] [place] [address] documented in this encounter Visit Diagnoses Diagnosis Rheumatoid arthritis involving multiple sites with positive rheumatoid factor (HCC) [M05.79] documented in this encounter Care Teams Cognos Architect Relationship Specialty Start Date End Date Charly Saxena [facility] [address] [place] [address] PCP - General Internal Medicine 05/25/13 07/16/17 Cheryl Calderon MD [facility] Medicine [address] [place] [address] PCP - General Internal Medicine 07/17/17 documented as of this encounter
--- OUTSIDE RECORDS SUMMARY | 2024-07-28 12:10 | XMS_ITS | Encounter Summary ---
Author Organization [facility] Address [address] [place] [address] Care Team Providers Care Transformer Maker Name Role Phone Charly Saxena Primary Care Provider [phone] Cheryl Calderon MD Primary Care Provider [phone] Encounter Details Date Type Department Care Team (Late st Contact Info) Description 07/29/2014 Orders Only [facility] Rheumatology [address] [place] [address] Abel Fierro MD [address] [place] [address] Social History Tobacco Use Types Packs/Day Years [...] Routine 07/29/2014 11:19 AM EDT Rheumatoid arthritis(714.0) ([facility]) ERYTHROCYTE SEDIMENTATION RATE (ESR) Routine 07/29/2014 11:19 AM EDT Rheumatoid arthritis(714.0) ([facility]) CBC INCLUDES DIFFERENTIAL AND PLATELET COUNT Routine 07/29/2014 11:19 AM EDT Rheumatoid arthritis(714.0) ([facility]) ALANINE AMINOTRANSFERASE (ALT), SERUM Routine 07/29/2014 11:19 AM EDT Rheumatoid arthritis(714.0) ([facility]) ASPARTATE AMINOTRANSFERASE (AST), SERUM Routine 07/29/2014 11:19 AM EDT Rheumatoid arthritis(714.0) ([facility]) CREATININE WITH GLOMERULAR FILTRATION RATE, ESTIMATED (EGFR) Routine 07/29/2014 11:19 AM EDT Rheumatoid arthritis(714.0) ([facility]) documented in this encounter Results * Due to [place] state law, this organization might not be sharing negative HIV tests. * C-REACTIVE PROTEIN (CRP) - INFLAMMATION (07/29/2014 11:19 AM EDT) C reactive protein 0.22 <0.80 mg/dL [facility] Comment: {C-REACTIVE PROTEIN {[id number]) Please be advised that patients taking Carboxypenicillins may exhibit falsely decreased C-Reactive Protein levels due to an analytical interference in this assay. 07/29/2014 11:1 9 AM EDT 07/29/2014 4:29 PM EDT Narrative Resulting Agency Comment [id number] us Abel Fierro MD LABORATORY Final Result [facility] [address] [place] [address] * ERYTHROCYTE SEDIMENTATION RATE (ESR), KUNAL (07/29/2014 11:19 AM EDT) Sedimentation Rate [place] (ESR) 14 < OR = 30 mm/h [facility] Comment:{SED RATE BY MODIFIE D SHAJIREN {[id number]) 07/29/2014 11:1 9 AM EDT 07/29/2014 4:29 PM EDT Narrative Resulting Agency Comment [id number] us Abel Fierro MD LAB SAME DAY RESULT Final Resul t Performing Organization Address [facility] Co de Phone Number [facility] [address] [place] [address] * CREATININE WITH GLOMERULAR FILTRATION RATE, ESTIMATED (EGFR) (07/29/2014 11:19 AM EDT) Creatinine 0.93 0.50 - 1.05 mg/dL [facility] Comment: {CREATININE {[id number]) For patients >49 years of age, the reference limit for Creatinine is approximately 13% higher for people identified as -Algerian. GFR 67 > OR = 60 mL/min/1. 73m2 [facility] Comment:{eGFR NON-AFR. AMERI CAN {[id number]) GFR () 78 > OR = 60 mL/min/1. 73m2 [facility] Comment:{eGFR AMERIC AN {[id number]) 07/29/2014 11:1 9 AM EDT 07/29/2014 4:29 [...] needs for GFR calculation. Resulting Agency Comment [id number] us Abel Fierro MD LAB SAME DAY RESULT Final Resul t Performing Organization Address City/[facility]/ZIP Co de Phone Number [facility] [address] [place] [address] * ALANINE AMINOTRANSFERASE (ALT), SERUM (07/29/2014 11:19 AM EDT) ALT (SGPT) 19 6 - 29 U/L [facility] Comment:{ALT {[id number]) 07/29/2014 11:1 9 AM EDT 07/29/2014 4:29 PM EDT Narrative Resulting Agency Comment [id number] us Abel Fierro MD LAB SAME DAY RESULT Final Resul t Performing Organization Address City/[facility] Co de Phone Number [facility] [address] [place] [address] * ASPARTATE AMINOTRANSFERASE (AST), SERUM (07/29/2014 11:19 AM EDT) AST (SGOT) 17 10 - 35 U/L [facility] Comment:{AST {[id number]) 07/29/2014 11:1 9 AM EDT 07/29/2014 4:29 PM EDT Narrative Resulting Agency Comment [id number] us Abel Fierro MD LAB SAME DAY RESULT Final Resul t Performing Organization Address [facility] de Phone Number [facility] [address] [place] [address] * (ABNORMAL) CBC INCLUDES DIFFERENTIAL AND PLATELET COUNT (07/29/2014 11:19 AM EDT) WBC 10.9(H) 3.8 - 10.8 Thousand/ uL [facility] Comment:{WHITE BLOOD CELL CO UNT {[id number]) RBC 5.63(H) 3.80 - 5.10 Million/u L [facility] Comment:{RED BLOOD CELL COUN T {[id number]) Hemoglobin 14.8 11.7 - 15.5 g/dL [facility] Comment:{HEMOGLOBIN {[id number]) Hematocrit 45.7(H) 35.0 - 45.0 % [facility] Comment:{HEMATOCRIT {[id number]) MCV 81.1 80.0 - 100.0 fL [facility] Comment:{MCV {[id number]) MCH 26.2(L) 27.0 - 33.0 pg [facility] Comment:{MCH {[id number]) MCHC 32.3 32.0 - 36.0 g/dL [facility] Comment:{MCHC {[id number]) RDW 15.5(H) 11.0 - 15.0 % [facility] Comment:{RDW {[id number]) PLT 331 140 - 400 Thousand/ uL [facility] Comment:{PLATELET COUNT {[id number]) MPV 7.3(L) 7.5 - 11.5 fL [facility] Comment:{MPV {[id number]) Neutrophils # 5875 1500 - 7800 cells/uL [facility] Comment:{ABSOLUTE NEUTROPHIL S {[id number]) Lymphocytes # 3706 850 - 3900 cells/uL [facility] Comment:{ABSOLUTE LYMPHOCYTE S {[id number]) Monocytes # 981(H) 200 - 950 cells/uL [facility] Comment:{ABSOLUTE MONOCYTES {[id number]) Eosinophils # 294 15 - 500 cells/uL [facility] Comment:{ABSOLUTE EOSINOPHIL S {[id number]) Basophils # 44 0 - 200 cells/uL [facility] Comment:{ABSOLUTE BASOPHILS {[id number]) Neutrophils % 53.9 % [facility] Comment:{NEUTROPHILS {[id number]) Lymphocytes % 34.0 % [facility] Comment:{LYMPHOCYTES {[id number]) Monocytes % 9.0 % [facility] Comment:{MONOCYTES {[id number]) Eosinophils % 2.7 % [facility] Comment:{EOSINOPHILS {[id number]) Basophils % 0.4 % [facility] Comment:{BASOPHILS {[id number]) 07/29/2014 11:1 9 AM EDT 07/29/2014 4:29 PM EDT Narrative Resulting Agency Comment [id number] us Abel Fierro MD LAB SAME DAY RESULT Final Resul t [facility] [address] [place] [address] documented in this encounter Visit Diagnoses Diagnosis Rheumatoid arthritis(714.0) Rheumatoid arthritis documented in this encounter Care Teams Transformer Maker Relationship Specialty Start Date End Date Charly Saxena [facility] [place], [place] [id number] PCP - General Internal Medicine 05/25/13 07/16/17 Cheryl Calderon MD [address] [address] PCP - General Internal Medicine 07/17/17 documented as of this encounter
--- OUTSIDE RECORDS SUMMARY | 2024-07-28 12:10 | XMS_ITS | Encounter Summary ---
Author Organization [facility] Address [address] [place] [address] Care Team Providers Care Getter Filler Name Role Phone Charly Saxena Primary Care Provider [phone] Cheryl Calderon MD Primary Care Provider [phone] Encounter Details Date Type Department Care Team (Late st Contact Info) Description 05/25/2013 Orders Only [facility] Rheumatology [address] [place] [address] Abel Fierro MD [address] [place] [address] Social History Tobacco Use Types Packs/Day Years [...] of this encounter Results * Due to [place] state law, this organization might not be sharing negative HIV tests. * C-REACTIVE PROTEIN (CRP) - INFLAMMATION (05/25/2013 3:30 PM EST) C reactive protein 0.52 <0.80 mg/dL [facility] Comment: {C-REACTIVE PROTEIN {[id number]) Please be advised that patients taking Carboxypenicillins may exhibit falsely decreased C-Reactive Protein levels due to an analytical interference in this assay. 05/25/2013 3:30 PM EST 05/25/2013 6:52 PM EST Narrative Resulting Agency Comment [id number] us Abel Fierro MD LABORATORY Final Result Performing Organization Address City/[facility] Co de Phone Number [facility] [address] [place] [address] * (ABNORMAL) ERYTHROCYTE SEDIMENTATION RATE (ESR), KUNAL (05/25/2013 3:30 PM EST) Sedimentation Rate [place] (ESR) 32(H) < OR = 30 mm/h [facility] Comment:{SED RATE BY JONATHAN SYED {[id number]) 05/25/2013 3:30 PM EST 05/25/2013 6:52 PM EST Narrative Resulting Agency Comment [id number] us Abel Fierro MD LAB SAME DAY RESULT Final Resul t Performing Organization Address [facility] Co de Phone Number [facility] [address] [place] [address] documented in this encounter Visit Diagnoses Diagnosis Rheumatoid arthritis(714.0)- Primary Rheumatoid arthritis documented in this encounter Care Teams Getter Filler Relationship Specialty Start Date End Date Charly Saxena [facility] [address] [place] [address] PCP - General Internal Medicine 05/25/13 07/16/17 Cheryl Calderon MD [facility] Medicine [address] [place] [address] PCP - General Internal Medicine 07/17/17 documented as of this encounter
--- OUTSIDE RECORDS SUMMARY | 2024-07-28 12:10 | XMS_ITS | Clinical Summary ---
Author Organization [facility] Address [address] [place] [address] Care Team Providers Care Supervisor Shipfitters Name Role Phone Cheryl Calderon MD Primary Care Provider [phone] Allergies Active Allergy Reactions Criticality Noted Date [...] Name Administration Dates Next Due COVID-19, mRNA (Edaixi Pre F all 2022) Monovalent, 30 mcg/0.3 ml 04/11/2021,10/03/2020,07/08/2020 Covid-19, mRNA (Edaixi Pre F all 2022) Bivalent, 30 mcg/0.3 ml mohan-sucrose (12+) dose 04/13/2022 Covid-19, mRNA (Edaixi Pre F all 2022) Monovalent, 30 mcg/0.3 [...] Zoster (Zostavax) Discontinued Procedures * Due to [place] state law, this organization might not be sharing negative HIV tests. Procedure Name Priority Date/Time Associated Diagnosis Comments COMPREHENSIVE EYE EXAM 01/23/2019 HEPATITIS C AB WITH REFLEX TO RNA PCR, SERUM Routine 12/23/2018 11:32 AM EDT Rheumatoid arthritis involving multiple sites with positive rheumatoid factor DXA BONE DENSITY STUDY AXIAL (LSSPINE, HIP) [...] to Health Maintenance Results * Due to [place] state law, this organization might not be sharing negative HIV tests. * COMPREHENSIVE EYE EXAM (01/23/2019) us Unknown Provider MINOR PROCEDURE Final Result * HEPATITIS C AB WITH REFLEX TO RNA PCR, SERUM (12/23/2018 11:32 AM EDT) Hepatitis C virus Ab NON-REACT MANOLO NON-REACT MANOLO [facility] Hepatitis C virus Ab Signal/Cutoff 0.01 <1.00 [facility] Comment: HCV antibody was non-reactive. There is no laboratory evidence of HCV infection. In most cases, no further action is required. However, if recent HCV exposure is suspected, a test for HCV RNA (test code 47555) is suggested. For additional information please refer to http://education.[place]/faq/NAY88b9 (This link is being provided for informational/ educational purposes only.) 12/23/2018 11:3 2 AM EDT 12/23/2018 11:23 PM EDT Narrative Resulting Agency Comment [id number] us Liliana Nehemiaszahiracatherine [facility] Final Result [facility] [address] [place] [address] * DXA BONE DENSITY STUDY AXIAL (LSSPINE, [...] X-RAY ABSORPTIOMETRY (DXA) SCAN: ?? DXA MODEL: HoloAscender Software Discovery SL in fast scan mode RISK [...] 19 % and hip fracture 3.5 %. Cheryl Calderon MD IMG DEXA IMAGING Final [...] EKG SYSTEM 06/13/2012 11:1 8 AM EST Unknown Provider CARDIOVASCULAR-NO INBASKET RTG Final Result [facility] * (ABNORMAL) CARDIAC RISK/LIPID PROFILE I (11/03/2004 9:46 AM EDT) [facility] CHOLESTEROL, TOTAL 191 100 - 199 MG/DL [facility] (CLIA# [id number]) TRIGLYCERIDES 132 30 - 149 MG/DL [facility] (CLIA# [id number]) HDL-CHOLESTEROL 85(H) 40 - 77 MG/DL [facility] (CLIA# [id number]) LDL-CHOLESTEROL 80 62 - 130 MG/DL [facility] (CLIA# [id number]) Comment: RISK CATEGORY: ??LDL-CHOLESTEROL GOAL CHD AND CHD RISK EQUIVALENTS: ??<100 MULTIPLE (2+) FACTORS: ??<130 ZERO TO ONE RISK FACTOR: ??<160 CHD RELATIVE RISK RATIO (TOTAL/HDL) 2.25 [facility] (CLIA# [id number]) Comment:(< .25 X AVERAGE) 11/03/2004 9:46 AM EDT 11/03/2004 9:46 AM EDT Narrative [facility] (CL[facility]# [id number]) - 11/03/2004 9:46 AM EDT FASTING us Abel Fierro MD LABORATORY Final Result Performing Organization Address [facility] Co de Phone Number [facility] (CLIA# [id number]) [address] [place] [address] * XRAY CHEST 2 VIEWS PA & LAT (06/28/2003 1:26 PM EST) [facility] RADIOLOGY REPORT Chest: Lungs and pleural reflections [...] Conclusion: No acute disease. [facility] (CLIA# [id number]) Anatomical Region Laterality Modality Other 06/28/2003 1:26 [...] the interpreting radiologist. BI-RADS Category 1: Negative [facility] (CLIA# [id number]) LETTER SENT A mammogram letter type A N was printed on 07/08/2001 [facility] (CLIA# [id number]) Anatomical Region Laterality Modality Other 06/25/2001 1:42 PM EST Charly Saxena [facility] IMAGING- OTHER Final Res ult * BARIUM [...] polyp was seen. [facility] (CLIA# [id number]) Anatomical Region Laterality Modality Other 06/07/2000 8:40 AM EST Narrative 06/07/2000 2:57 PM EST Reason for Study/History: ABD PAIN Test(s) processed by : [facility] Jeff Puente PA-C CONTRAST STUDY- OTHER Elana l Result * PAP SMEAR (12/06/1999 12:00 AM EDT) SPERM SOURCE VCE [facility] (CLIA# [id number]) NUMBER OF SLIDES RECEIVED: 1 [facility] (CLIA# [id number]) HISTORY CLINICAL [facility] (CLIA# [id number]) Comment:Menopause [address] [facility] (CLIA# [id number]) Comment:Endocervical cells a re present SPECIMEN ADEQUACY: [facility] (CLIA# [id number]) Comment:Satisfactory specime n for Cytologic evaluation. PATHOLOGY DIAGNOSIS [facility] (CLIA# [id number]) Comment:WITHIN NORMAL LIMITS PATHOLOGY GROUP: [facility] (CLIA# [id number]) Comment: [address] [place] [address] 12/06/1999 12/06/1999 Chloe Law MD PATHOLOGY Final Resul t [facility] (CLIA# [id number]) [address] [place] [address] from Last 3 Months or Most Recently Relevant to Health Maintenance Insurance , [address] [place] [address] MEDICARE PART B [facility] FFS FEDERAL Care Teams Supervisor Shipfitters Relationship Specialty Start Date End Date Cheryl Calderon MD [facility] Adult Medicine [address] [place] [address] PCP - General Internal Medicine 07/17/17
--- OUTSIDE RECORDS SUMMARY | 2024-07-28 12:10 | XMS_ITS | Encounter Summary ---
Author Organization [facility] Address [address] [place] [address] Care Team Providers Care Machine Rug Cleaner Name Role Phone Alberto Pacheco Primary Care Provider [phone] Charly Saxena Primary Care Provider [phone] Cheryl Calderon MD Primary Care Provider [phone] Encounter Details Date Type Department Care Team (Late st Contact Info) Description 10/28/2012 Orders Only [facility] Rheumatology [address] [place] [address] Abel Fierro MD [address] [place] [address] Social History Tobacco Use Types Packs/Day Years [...] of this encounter Procedures * Due to [place] state law, this organization might not be [...] in this encounter Results * Due to [place] state law, this organization might not be sharing negative HIV tests. * CREATININE WITH GLOMERULAR FILTRATION RATE, ESTIMATED (EGFR) (10/28/2012 2:15 PM EDT) Creatinine 0.73 0.50 - 1.05 mg/dL [facility] Comment: {CREATININE {[id number]) For patients >49 years of age, the reference limit for Creatinine is approximately 13% higher for people identified as -Austrian. GFR 91 > OR = 60 mL/min/1. 73m2 [facility] Comment:{eGFR NON-AFR. AMERI CAN {[id number]) GFR () 106 > OR = 60 mL/min/1. 73m2 [facility] Comment:{eGFR AMERIC AN {[id number]) 10/28/2012 2:15 PM EDT 10/28/2012 11:59 PM [...] needs for GFR calculation. Resulting Agency Comment [id number] us Abel Fierro MD LAB SAME DAY RESULT Final Resul t [facility] [address] [place] [address] * ALANINE AMINOTRANSFERASE (ALT), SERUM (10/28/2012 2:15 PM EDT) ALT (SGPT) 21 6 - 29 U/L [facility] Comment:{ALT {[id number]) 10/28/2012 2:15 PM EDT 10/28/2012 11:59 PM EDT Narrative Resulting Agency Comment [id number] Abel Fierro MD LAB SAME DAY RESULT Final Resul t Performing Organization Address City/[facility]/ZIP Co de Phone Number [facility] [address] [place] [address] * ASPARTATE AMINOTRANSFERASE (AST), SERUM (10/28/2012 2:15 PM EDT) Pathologist [facility] AST (SGOT) 19 10 - 35 U/L [facility] Comment:{AST {[id number]) 10/28/2012 2:15 PM EDT 10/28/2012 11:59 PM EDT Narrative Resulting Agency Comment [id number] Abel Fierro MD LAB SAME DAY RESULT Final Resul t Performing Organization Address [facility] Co de Phone Number [facility] [address] [place] [address] * (ABNORMAL) CBC INCLUDES DIFFERENTIAL AND PLATELET COUNT (10/28/2012 2:15 PM EDT) Pathologist [facility] WBC 10.8 3.8 - 10.8 Thousand/ uL [facility] Comment:{WHITE BLOOD CELL CO UNT {[id number]) RBC 5.06 3.80 - 5.10 Million/u L [facility] Comment:{RED BLOOD CELL COUN T {[id number]) Hemoglobin 12.9 11.7 - 15.5 g/dL [facility] Comment:{HEMOGLOBIN {[id number]) Hematocrit 41.7 35.0 - 45.0 % [facility] Comment:{HEMATOCRIT {[id number]) MCV 82.5 80.0 - 100.0 fL [facility] Comment:{MCV {[id number]) MCH 25.5(L) 27.0 - 33.0 pg [facility] Comment:{MCH {[id number]) MCHC 31.0(L) 32.0 - 36.0 g/dL [facility] Comment:{MCHC {[id number]) RDW 14.6 11.0 - 15.0 % [facility] Comment:{RDW {[id number]) PLT 367 140 - 400 Thousand/ uL [facility] Comment:{PLATELET COUNT {[id number]) MPV 7.3(L) 7.5 - 11.5 fL [facility] Comment:{MPV {[id number]) Neutrophils # 5692 1500 - 7800 cells/uL [facility] Comment:{ABSOLUTE NEUTROPHIL S {[id number]) Lymphocytes # 3964(H) 850 - 3900 cells/uL [facility] Comment:{ABSOLUTE LYMPHOCYTE S {[id number]) Monocytes # 832 200 - 950 cells/uL [facility] Comment:{ABSOLUTE MONOCYTES {[id number]) Eosinophils # 248 15 - 500 cells/uL [facility] Comment:{ABSOLUTE EOSINOPHIL S {[id number]) Basophils # 65 0 - 200 cells/uL [facility] Comment:{ABSOLUTE BASOPHILS {[id number]) Neutrophils % 52.7 % [facility] Comment:{NEUTROPHILS {[id number]) Lymphocytes % 36.7 % [facility] Comment:{LYMPHOCYTES {[id number]) Monocytes % 7.7 % [facility] Comment:{MONOCYTES {[id number]) Eosinophils % 2.3 % [facility] Comment:{EOSINOPHILS {[id number]) Basophils % 0.6 % [facility] Comment:{BASOPHILS {[id number]) 10/28/2012 2:15 PM EDT 10/28/2012 11:59 PM EDT Narrative Resulting Agency Comment [id number] us Abel Fierro MD LAB SAME DAY RESULT Final Resul t [facility] [address] [place] [address] documented in this encounter Visit Diagnoses Diagnosis Rheumatoid arthritis(714.0) Rheumatoid arthritis documented in this encounter Care Teams Machine Rug Cleaner Relationship Specialty Start Date End Date Alberto Pacheco [address] [place] [address] PCP - General 07/19/08 05/24/13 Charly Saxena [facility] [address] [place] [address] PCP - General Internal Medicine 05/25/13 07/16/17 Cheryl Calderon MD [facility] Adult Medicine [address] [place] [address] PCP - General Internal Medicine 07/17/17 documented as of this encounter
--- OUTSIDE RECORDS SUMMARY | 2024-07-28 12:10 | XMS_ITS | Clinical Summary ---
Author Organization [facility] Address [address] [place] [address] Phone Care Team Providers Care Marine Animal Trainer Name Role Phone Cash Fernandes MD Unavailable [phone] Keren Poon [facility] Primary Care Provid er Willi Wells MD Unavailable Jose Thakur MD Unavailable Dana Rucker STILE RIPSAW OPERATOR Unavailable [phone] Jonathan Alvarez MD Unavailable [phone] Anival Borja MD Unavailable Lyndsay Reynoso STILE RIPSAW OPERATOR Unavailable Gutierrez Pittman MD Unavailable [phone] Allergies Active Allergy Reactions Criticality Noted Date Comments Codeine Itching,Swelling,Oth er (See Comments) 08/26/2008 Edubfdu-Ttqmtohgnn-Vrz-Caff 08/21/19 21 Gold Salts Hives 08/26/2008 Nitrofurantoin [...] 3 Active methotrexate 2.5 MG Oral tablet 3 Active ondansetron (ZOFRAN-ODT) 4 MG disintegrating [...] PREVENTION. HOLD IF STARTING ABX 4 Active levothyroxine (SYNTHROID, LEVOTHROID) 88 MCG [...] daily. Active azelastine-flutica sone (DYMISTA) 137-50 mcg/spray Friedens 1 spray by Each Nare route 2 [...] times a day as needed. 5 Active carvedilol (COREG) 12.5 MG tablet TAKE ONE TABLET BY MOUTH TWICE A DAY WITH MEALS 180 tablet 3 5 Active benzonatate (TESSALON) 100 MG capsuleIndications :Acute cough Take 1 capsule (100 mg total) by mouth 3 (three) times a day as needed for cough. 20 capsule 5 Active sucralfate (CARAFATE) 1 gram tablet Take 1 tablet (1 g total) by mouth 4 (four) times a day. 120 tablet 5 5 12/29/19 25 Active vancomycin (VANCOCIN) 125 MG capsule Take 1 capsule (125 mg total) by mouth every 6 (six) hours for 11 days, THEN 1 capsule (125 mg total) every 12 (twelve) hours for 7 days, THEN 1 capsule (125 mg total) daily for 7 days, THEN 1 capsule (125 mg total) every other day for 7 days, THEN 1 capsule (125 mg total) every third day for 14 days. 72 capsule 5 08/29/19 25 Active OXYBUTYNIN CHLORIDE ORAL Take 10 mg by mouth daily. 5 Active cranberry fruit extract (CRANBERRY EXTRACT) 500 mg Tab Take 15,000 mg by mouth daily. 5 Active LORazepam (ATIVAN) 0.5 MG tabletIndications: Anxiety state Take 1 tablet (0.5 mg total) by mouth 2 (two) times a day as needed for anxiety. 56 tablet 5 Active losartan (COZAAR) 25 MG tabletIndications: Primary hypertension TAKE ONE TABLET BY MOUTH ONCE DAILY 90 tablet 3 5 Active losartan (COZAAR) 25 MG tabletIndications: Primary hypertension take one tablet by mouth once daily 90 tablet 1 4 07/24/19 25 Discontinued LORazepam (ATIVAN) 0.5 MG tabletIndications: Anxiety state Take 1 tablet (0.5 mg total) by mouth 2 (two) times a day as needed for anxiety. 56 tablet 5 07/22/19 25 Discontinued(Reo rder) vancomycin (VANCOCIN) 125 MG capsule Take 1 capsule (125 mg total) by mouth every 3 (three) days. 10 capsule 5 5 07/14/19 25 Discontinued(Sto p Taking at Discharge) famotidine (PEPCID) 20 MG tablet Take 1 tablet (20 mg total) by mouth 2 (two) times a day. 60 tablet 5 07/14/19 25 Discontinued(Sto p Taking at Discharge) Active Problems Problem Noted Date Diagnosed Date [...] of future UTIs. A referral to a wire roller will be made. Dyspnea on exertion 01/02/2024 Assessment & Plan (07/13/2024 10:28 AM EDT): -History of untreated CONOR, her fur sewer also notes history of cardiac issues and likely HFpEF with moderate mitral regurgitation. Patient has regular echocardiograms manages blood pressure and continues to take low-dose furosemide held iso setting of volume depletion. -no acute respiratory symptoms Assessment & Plan (07/12/2024 9:11 AM EDT): -History of untreated CONOR, her fur sewer also notes history of cardiac issues and likely HFpEF with moderate mitral regurgitation. Patient has regular echocardiograms manages blood pressure and continues to take low-dose furosemide which I will hold in the setting of volume depletion. -no acute respiratory symptoms Assessment & Plan (07/11/2024 8:43 AM EDT): -History of untreated CONOR, her fur sewer also notes history of cardiac issues and likely HFpEF with moderate mitral regurgitation. Patient has regular echocardiograms manages blood pressure and continues to take low-dose furosemide which I will hold in the setting of volume depletion. -no acute respiratory symptoms Assessment & Plan (07/10/2024 5:03 PM EDT): History of untreated CONOR, her fur sewer also notes history of cardiac issues and likely HFpEF with moderate mitral regurgitation. Patient has regular echocardiograms manages blood pressure and continues to take low-dose furosemide which I will hold in the setting of volume depletion. Denies acute respiratory symptoms Assessment & Plan (06/06/2024 12:39 PM EST): [...] her oxygen levels. A referral to a fur sewer will be made today. If there is no improvement, a follow-up with the fur sewer is recommended. Allergic rhinitis 11/21/2023 Assessment & [...] re: anxiety and co-morbid depression. Rx renewed, Franniet reviewed - no concerns. Assessment & Plan [...] neurology (Dr Borja) and also pain management ([facility] Assessment & Plan (09/09/2023 8:42 AM EDT): Left sided face and head pain w/ dx: occipital neuralgia. Recently had nerve ablation performed on the left side, no improvement noted from this procedure yet. Followed by neurology (Dr Borja) and also pain management ([facility]). Assessment & Plan (06/07/2023 12:36 PM EST): Left sided face and head pain w/ dx: occipital neuralgia over the last 9 months. Followed by neurology (Dr Borja) and also pain management ([facility]). Awaiting insurance approval for nerve ablation per her report. Assessment & Plan (05/23/2023 2:20 PM EST): Left sided face and head pain w/ dx: occipital neuralgia over the last 8-9 months. Followed by neurology (Dr Borja) and also pain management ([facility]). Cervical radiculopathy 05/25/2022 Assessment & Plan (06/06/2024 [...] WRITTEN ON 09/28/2020 7:31 AM BY ITA RODRIGUEZ CNP multiple Obstructive sleep apnea, adult 08/20/2020 Overview (02/21/2023): using CPAP Assessment & Plan (07/13/2024 10:28 AM EDT): Currently not using CPAP, sometimes uses an oxygen concentrator at night 2 L Assessment & Plan (07/12/2024 9:11 AM EDT): Currently not using CPAP, sometimes uses an oxygen concentrator at night 2 L Assessment & Plan (07/11/2024 8:43 AM EDT): Currently not using CPAP, sometimes uses an oxygen concentrator at night 2 L Assessment & Plan (07/10/2024 5:03 PM EDT): Currently not using CPAP, sometimes uses an oxygen concentrator at night 2 L Assessment & Plan (06/06/2024 12:20 PM EST): [...] & Plan (04/15/2024 8:14 PM EST): Sees fur sewer for shortness of breath with exertion uses oxygen as needed has sleep apnea but untreated-in the past had difficulty with CPAP machine Assessment & Plan (04/14/2024 2:18 PM EST): Sees fur sewer for shortness of breath with exertion uses oxygen as needed has sleep apnea but untreated-in the past had difficulty with CPAP machine Assessment & Plan (04/13/2024 11:58 AM EST): Sees fur sewer for shortness of breath with exertion uses [...] urologist. Paroxysmal A-fib 11/27/2010 Assessment & Plan (07/13/2024 10:28 AM EDT): continue Coreg Anticoagulation will continue Assessment & Plan (07/12/2024 9:11 AM EDT): continue Coreg Anticoagulation will continue Assessment & Plan (07/11/2024 8:43 AM EDT): continue Coreg Anticoagulation will continue Assessment & Plan (07/10/2024 5:03 PM EDT): History of PAF, continue Coreg Anticoagulation will continue Assessment & Plan (06/06/2024 12:24 PM EST): Hx PAF. Rate controlled on carvedilol and on Eliquis for AC. HRR on exam today. Followed by [facility] cardiology (Dr Pittman). Assessment & Plan (05/12/2024 [...] scheduled for a follow-up appointment with her application architect manager, Dr. Puckett, on 09/11/2023. If required, [...] arthritis involving multiple sites Assessment & Plan (07/13/2024 10:28 AM EDT): -maintained on prednisone, Rituxan methotrexate, Rituxan and methotrexate were held last admission and have remained on hold -waiting on a new appointment with a director of public works to resume treatment, has had increasing joint pain and is now close to 3 months overdue for Rituxan, ID can advise in follow up on resuming. -no indication for stress dose steroids. Assessment & Plan (07/12/2024 9:11 AM EDT): -maintained on prednisone, Rituxan methotrexate, Rituxan and methotrexate were held last admission and have remained on hold -waiting on a new appointment with a director of public works to resume treatment, has had increasing joint pain and is now close to 3 months overdue for Rituxan, will have infectious diseases weigh in -no indication for stress dose steroids. Assessment & Plan (07/11/2024 8:43 AM EDT): -maintained on prednisone, Rituxan methotrexate, Rituxan and methotrexate were held last admission and have remained on hold -waiting on a new appointment with a director of public works to resume treatment, has had increasing joint pain and is now close to 3 months overdue for Rituxan, will have infectious diseases weigh in -no indication for stress dose steroids. Assessment & Plan (07/10/2024 5:03 PM EDT): Has been maintained on prednisone, Rituxan methotrexate, Rituxan and methotrexate were held last admission and have remained on hold The patient is waiting on a new appointment with a director of public works to resume treatment, has had increasing joint pain and is now close to 3 months overdue for Rituxan, will have infectious diseases weigh in At present does not require stress dose steroids Assessment & Plan (06/06/2024 12:03 PM EST): [...] patient will continue her follow-up with her director of public works, Dr. Franklin, in 09/2023. Assessment & Plan [...] (05/25/2022 9:19 PM EST): Establishing with new director of public works. Discussed planning to reduce frequency and dose [...] Gastroesophageal reflux disease 08/26/2008 Assessment & Plan (07/13/2024 10:28 AM EDT): Has been off of her PPI due to C. difficile infections, uses Gas-X for symptom relief and Tums, started pepcid which seems to help Assessment & Plan (07/12/2024 9:11 AM EDT): Has been off of her PPI due to C. difficile infections, uses Gas-X for symptom relief and Tums, will start pepcid. Assessment & Plan (07/11/2024 8:43 AM EDT): Has been off of her PPI due to C. difficile infections, uses Gas-X for symptom relief and Tums, will start pepcid. Assessment & Plan (07/10/2024 5:03 PM EDT): Has been off of her PPI due to C. difficile infections, uses Gas-X for symptom relief and Tums Assessment & Plan (04/15/2024 8:14 PM EST): [...] WRITTEN ON 08/19/2020 12:37 PM BY ELIDA MALDONADO MD Usual medication ordered Assessment & Plan (05/23/2023 2:28 PM EST): >>ASSESSMENT AND PLAN FOR MAJOR DEPRESSIVE DISORDER, SINGLE EPISODE, UNSPECIFIED WRITTEN ON 09/13/2021 1:22 AM BY MARA BARNETT MD Has decreased motivation, depressed mood, weight [...] C. difficile colitis 08/26/2008 Assessment & Plan (07/24/2024 3:09 PM EDT): Pt has had 3 bouts of C diff. She has been unable to fully wean off vancomycin. She is unable to enroll in the [facility] fecal transplant program due to use of methotrexate and rituximab. We will pursue prescribing VOWST for fecal transplant. Discussed benefits vs risk with pt and Faustino. Filled out the VOWST enrollment paperwork and faxed along with hospital notes and most recent labs. Follow-up will be dependent upon when pt receives the medication. Assessment & Plan (07/13/2024 10:28 AM EDT): -Recurrent C. 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 History of RA, immunocompromise. -consult ID to consider fidaxomycin or adjunctive treatment versus fecal transplant but not available over weekend. I did treat her with dificid previously -Currently getting flagyl and vanco. Consult GI who recommended conference with ID tomorrow for possible fecal transplant vs biologics. This can likely be done in outpt setting once she is better and dced. Assessment & Plan (07/12/2024 9:11 AM EDT): -Recurrent C. 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 History of RA, immunocompromise. -consult ID to consider fidaxomycin or adjunctive treatment versus fecal transplant but not available over weekend. I did treat her with dificid previously -Currently getting flagyl and vanco. Consult GI who recommended conference with ID tomorrow for possible fecal transplant vs biologics. Assessment & Plan (07/11/2024 8:43 AM EDT): -Recurrent C. 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 History of RA, immunocompromise. -consult ID to consider fidaxomycin or adjunctive treatment versus fecal transplant but not available over weekend. I did treat her with dificid previously -Currently getting flagyl and vanco. Consult GI. Assessment & Plan (07/10/2024 5:03 PM EDT): Recurrent C. difficile. History of RA, immunocompromise. Here in March with a UTI which was complicated by C. difficile infection, initially treated with vancomycin and then had some flushing and changed to Dificid. Return to hospital in early May after receiving several rounds of fosfomycin. Diagnosed with C. difficile again at that time, CT showed diffuse colitis. Elevated oral vancomycin and IV Flagyl. Has been maintained on vancomycin every 3 days as an outpatient and has seen ID. She did have improvement in diarrhea. Presents today with acute recurrent symptoms, abdominal pain fever and diarrhea since yesterday. This is her third infection, denies having had antibiotics in the interim. Chronically takes methenamine and vitamin C. Patient does not meet criteria for definition of fulminant CDI as she does not have hypotension shock ileus or megacolon but this is now her third episode. Will consult infectious diseases to consider fidaxomycin or adjunctive treatment versus fecal transplant. Will start with oral pulsed therapy she has been given 500 mg dose and will also give IV metronidazole 500 mg every 8 hours Assessment & Plan (06/19/2024 3:37 PM EST): [...] COLITIS WRITTEN ON 04/15/2024 8:14 PM BY SHON CÁRDENAS MD CT showing pancolitis. Recently on [...] WRITTEN ON 04/14/2024 2:18 PM BY ELIDA MALDONADO MD CT showing pancolitis. Recently on abx [...] WRITTEN ON 04/13/2024 11:58 AM BY ELIDA MALDONADO MD CT showing pancolitis. Recent abx, recurrent uti Cdiff + vanco q6h started 04/10, 125 mg orally, 10 day course. [...] WRITTEN ON 04/12/2024 3:51 PM BY YOLY GRIMES, DO CT showing pancolitis. Recent abx, recurrent uti Cdiff + vanco q6h started /, 125 mg orally, 10 day course. Today [...] WRITTEN ON 04/11/2024 4:04 PM BY YOLY GRIMES DO CT showing pancolitis. Recent abx, recurrent uti Cdiff + vanco q6h started 12/, 125 mg orally, 10 day course. She held her lasix at home with dehydration, encourage hydration Appetite is still poor.. Assessment & Plan (05/10/2024 10:27 AM EST): >>ASSESSMENT AND PLAN FOR CLOSTRIDIUM DIFFICILE COLITIS WRITTEN ON 04/10/2024 6:59 AM BY GISELE CHOI MD Patient has recently completed antibiotics [...] on levothyroxine and stable Assessment & Plan (07/13/2024 10:28 AM EDT): Check TSH continue levothyroxine Assessment & Plan (07/12/2024 9:11 AM EDT): Check TSH continue levothyroxine Assessment & Plan (07/11/2024 8:43 AM EDT): Check TSH continue levothyroxine Assessment & Plan (07/10/2024 5:03 PM EDT): Check TSH continue levothyroxine Assessment & Plan (06/06/2024 12:41 PM EST): [...] (12/05/2022 5:10 PM EDT): TSH wnl in Feb- cont same dose Diverticulosis History of anemia [...] follow-up with the pain management team at [facility]. 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 difficile colitis (Primary Dx) 07/24/2024 Telephone [facility] Infectious Diseases [address] [place] [address] [place] [address] Dana Rucker FNP Medication Prior Authorization (VOWST) 07/23/2024 Refill [facility] [address] [place] [address] [place] [address] Keren Poon, ORI Medication Refill 07/22/2024 4:00 AM EDT Home Care Visit [facility] [address] [place] [phone] Sunitha Macias LPN OUTSIDE SALES REPRESENTATIVE HOME VISIT 07/21/2024 10:00 AM EDT Home Care Visit [facility] [address] [place] [phone] Elida Schreiber, PT PT EVALUATION 07/20/2024 Home Care Visit [facility] [address] [place] [phone] Elida Schrieber, PT TELEPHONE ENCOUNTER 07/17/2024 Home Care Visit [facility] [address] [place], [place] [phone] Linda Melchor, PT CASE COMMUNICATION 07/16/2024 Telephone [facility] [address] [place] [address] [place] [address] Keren Poon, CIVIL TRANSPORTATION ENGINEER [facility] 07/16/2024 Plan of Care Documentation [facility] [address] [place] [address] 07/14/2024 11:00 AM EDT Home Care Visit [facility] [address] [place] [phone] Dante Haynes, RN SN OASIS START OF CARE (SOC) 07/13/2024 Documentation [facility] Neurology [address] [place] [address] Dana Rucker, DIVYA 07/11/2024 Orders Only [facility] [address] [place] [address] Homehealth, Interface MD Estrellita 07/10/2024 6:25 AM EDT - 07/13/2024 1:50 PM EDT Hospital Encounter [facility] [address] [place] [address] Ismael Singh MD Morse, Peter, MD Grachev, Maksim, DO Altman, Evan K, , MPH Discharge Disposition: Home-Health Care Svc 07/10/2024 Procedure Pass [facility], [facility] - [facility] [address] [place] [id number] 07/09/2024 10:30 AM EDT Home Care Visit [facility] [address] [place] [address] Merly Matos, PT PT OASIS DISCHARGE VISIT 07/07/2024 1:30 PM EDT Home Care Visit [facility] [address] [place] [phone] Big BayMiya cummins PTA FOOD AND BEVERAGE ASSISTANT MANAGER HOME VISIT 07/02/2024 2:00 PM EST Home Care Visit [facility] [address] [place] [address] Miya Monte PTA FOOD AND BEVERAGE ASSISTANT MANAGER HOME VISIT 07/01/2024 2:30 PM EST Office Visit [facility] All[facility] [address] [place] [id number] Jose Thakur MD Dyspnea on exertion (Primary Dx) 06/30/2024 1:30 PM EST Home Care Visit [facility] [address] [place] [address] Miya Monte PTA FOOD AND BEVERAGE ASSISTANT MANAGER HOME VISIT 06/26/2024 2:00 PM EST Home Care Visit [facility] [address] [place] [address] Miya Monte PTA FOOD AND BEVERAGE ASSISTANT MANAGER HOME VISIT 06/25/2024 9:15 AM EST Home Care Visit [facility] [address] [place] [address] Dante Haynes, RENZO SN DISCIPLINE DISCHARGE VISIT 06/24/2024 10:45 AM EST Home Care Visit [facility] [address] [place] [address] Miya Monte PTA FOOD AND BEVERAGE ASSISTANT MANAGER HOME VISIT 06/19/2024 2:30 PM EST Office Visit [facility] Infectious Diseases [address] [place] [address] Dana Rucker, DIVYA C. difficile colitis (Primary Dx); Recurrent urinary tract infection 06/18/2024 4:30 PM EST Home Care Visit [facility] [address] [place] [address] Merly Matos, PT PT TFA VISIT 06/16/2024 9:30 AM EST Home Care Visit [facility] [address] [place] [address] Dante Haynes, RN SN HOME VISIT 06/10/2024 [facility]die [facility] [address] [place] [address] [place] [address] Keren Poon CNP Medication Refill 06/09/2024 10:30 AM EST Home Care Visit [facility] [address] [place] [address] Dante Haynes, RENZO SN HOME VISIT 06/09/2024 9:30 AM EST Home Care Visit [facility] [address] [place] [address] Miya Monte, FOOD AND BEVERAGE ASSISTANT MANAGER FOOD AND BEVERAGE ASSISTANT MANAGER HOME VISIT 06/05/2024 11:00 AM EST Home Care Visit [facility] [address] [place] [address] Miya Monte, FOOD AND BEVERAGE ASSISTANT MANAGER FOOD AND BEVERAGE ASSISTANT MANAGER HOME VISIT 06/02/2024 10:15 AM EST Home Care Visit [facility] [address] [place] [address] Miya Monte, FOOD AND BEVERAGE ASSISTANT MANAGER FOOD AND BEVERAGE ASSISTANT MANAGER HOME VISIT 06/02/2024 9:00 AM EST Home Care Visit [facility] [address] [place] [address] Dante Haynes RN SN HOME VISIT 05/29/2024 11:15 AM EST Home Care Visit [facility] [address] [place] [address] Miya Monte, FOOD AND BEVERAGE ASSISTANT MANAGER FOOD AND BEVERAGE ASSISTANT MANAGER HOME VISIT 05/27/2024 2:00 PM EST Office Visit [facility] [address] [place] [address] [place] [address] Keren Poon CNP Encounter for health maintenance examination in adult [...] 05/27/2024 10:15 AM EST Home Care Visit [facility] [address] [place] [address] Miya Monte, FOOD AND BEVERAGE ASSISTANT MANAGER FOOD AND BEVERAGE ASSISTANT MANAGER HOME VISIT 05/26/2024 11:00 AM EST Home Care Visit [facility] [address] [place] [address] Dante Haynes, RENZO SN HOME VISIT 05/22/2024 1:00 PM EST [facility] [address] [place] [address] Asmita Montiel, PT PT EVALUATION 05/22/2024 1:00 PM EST Home Care Visit [facility] [address] [place] [address] Dante Haynes RN SN HOME VISIT 05/22/2024 Telephone [facility] Infectious Diseases [address] [place] [address] [place] [address] Dana Rucker FNP Medication Question (Vancomycin ) 05/21/2024 11:30 AM EST Office Visit [facility] Infectious Diseases [address] [place] [address] [place] [address] Adam Treadwell MD Markens, Beth Ashley, FNP C. difficile colitis (Primary Dx); Recurrent urinary tract infection; Urinary incontinence, unspecified type 05/21/2024 Telephone [facility] [address] [place] [address] Keren Poon, CIVIL TRANSPORTATION ENGINEER Medication Refill 05/20/2024 9:15 AM EST Home Care Visit [facility] [address] [place] [phone] Orlando Mckeon, RN SN HOME VISIT 05/15/2024 Home Care Visit [facility] [address] [place] [phone] Paulina Garay, NANCY TELEPHONE ENCOUNTER 05/14/2024 12:00 PM EST Home Care Visit [facility] [address] [place] [phone] Andreas Reyes, RN SN OASIS START OF CARE (SOC) 05/14/2024 Plan of Care Documentation [facility] [address] [place] [phone] 05/14/2024 Telephone [facility] [address] [place] [address] Keren Poon CNP Request For Order(s) 05/14/2024 Telephone [facility] Infectious Diseases [address] [place] [address] Dana Rucker FNP 05/13/2024 Procedure Pass [facility] Admitting Dept Virtual Department [address] [place] [phone] 05/13/2024 Telephone [facility] Infectious Diseases [address] [place] [address] Belinda Cho [place], [place] 05/13/2024 Orders Only [facility] [address] [place] [phone] Homehealth, Interface ProviderMD 05/09/2024 Procedure Pass [facility], [facility] [address] [place] [phone] 05/07/2024 7:54 PM EST - 05/13/2024 6:17 PM EST Hospital Encounter [facility] [address] [place] [phone] Marco Antonio Brooks, Guteirrez Kelly, David Acuña MD Lipkin-Moore, Zachary M, MD Zaman, Tonbira S, MD Arepally, Sandeep, MD Discharge Disposition: Home-Health Care Svc 05/07/2024 Telephone [facility] [address] [place] [address] Keren Poon CNP Yellow Call Diarrhea 05/01/2024 1:40 PM EST - 05/01/2024 11:59 PM EST Hospital Encounter [facility], X-Ray - [place] [address] [place] [address] Argelia Taylor NP Discharge Disposition: Home or Self Care 05/01/2024 Ancillary Orders Virtual Department [address] [place] [phone] Argelia Taylor NP Lower abdominal pain (Primary Dx); Diarrhea, unspecified type; Bloating; Change in bowel habits 04/30/2024 2:30 PM EST Office Visit [address] [place] [address] Keren Poon CNP C. difficile colitis (Primary Dx); Acute cystitis without hematuria; Atrophic vaginitis; Rheumatoid arthritis involving multiple sites, unspecified whether rheumatoid factor present; Generalized abdominal pain 04/30/2024 Transcribe Orders Virtual Department [address] [place] [address] Argelia Taylor NP Lower abdominal pain (Primary Dx); Diarrhea, unspecified type; Bloating; Change in bowel habits from Last 3 Months Immunizations Name Administration Dates Next Due COVID-19 (Pre-02/18) Pfizer Vaccine, mRNA, mohan-sucrose, PF 09/11/2021 [id number] FORMULATION 05/13/2009 Influenza High-Dose Quadriva lent Preservative [...] Sign Reading Time Taken Comments Blood Pressure 120/80 07/24/2024 2:06 PM EDT Pulse 82 07/24/2024 2:06 PM EDT Temperature 36.7 ??C (98 ??F) 07/24/2024 2:06 PM EDT Respiratory Rate 18 07/22/2024 9:56 AM EDT Oxygen Saturation 96% 07/24/2024 2:06 PM EDT Inhaled Oxygen Concentration - - Weight 75.9 kg (167 lb 6.4 oz) 07/24/2024 2:06 P M EDT Height 167.6 cm (5' 6 ) 07/10/2024 5:04 PM EDT Body Mass Index 27.02 07/10/2024 5:04 PM EDT Plan of Treatment Upcoming Encounters Date Type Department Care Team (Late st Contact Info) Description 06/06/2024 Procedure Pass [facility], [facility] [address] [place] [address] 07/28/2024 1:00 PM EDT Home Care Visit [facility] [address] [place] [address] Trice De Santiago LPN [address] [place] [address] [email or web address] 07/30/2024 3:30 PM EDT Office Visit [facility] [facility] [address] [place] [address] [place] [address] Keren Poon, CIVIL TRANSPORTATION ENGINEER [address] [place] [address], 2nd [place] [address] [email or web address] 08/04/2024 2:30 AM EDT Home Care Visit [facility] [address] [place] [address] Orlando Mckeon RN [address] [place] [phone] [email or web address] 08/11/2024 2:00 AM EDT Home Care Visit [facility] [address] [place] [address] Orlando Mckeon RN [address] [place] [phone] [email or web address] 08/18/2024 1:30 AM EDT Home Care Visit [facility] [address] [place] [address] Orlando Mckeon RN [address] [place] [address] [email or web address] 08/25/2024 1:00 AM EDT Home Care Visit [facility] [address] [place], [place] [phone] Orlando Mckeon RN [address] [place] [address] 09/01/2024 12:30 AM EDT Appointment [facility] [address] [place], [place] [phone] Orlando Mckoen RN [address] [place] [address] 09/18/2024 2:30 PM EDT Office Visit [facility] Infectious Diseases [address] [place] [address] Dana Rucker, STILE RIPSAW OPERATOR [address] [address] 11/26/2024 3:30 PM EDT Office Visit [facility] [address] [place] [address] [place] [address] Keren Poon, CIVIL TRANSPORTATION ENGINEER [address] [place] [phone] 12/11/2024 2:00 PM EDT Appointment [facility] [address] [place] [address] Keren Poon, CIVIL TRANSPORTATION ENGINEER [address] [address] 01/07/2025 2:30 PM EDT Office Visit [facility] [address] [place] [address] Jose Thakur MD [address] [place] [address] 06/03/2025 2:00 PM EST Office Visit [facility] [place] [facility] [address] [place], [place] [address] Keren Poon, ORI 170 [facility], 2nd Floor [place] [address] [email or web address] Health Maintenance Due Date Last Done Comments ZOSTER VACCINES (1 of 2) 1974 COLOGUARD 01/18/2000 COLONOSCOPY 01/18/2000 COLORECTAL CANCER SCREENING 01/18/2000 FIT TEST 01/18/2000 FOBT 01/18/2000 SIGMOIDOSCOPY 01/18/2000 VIRTUAL COLONOSCOPY 01/18/2000 MAMMOGRAM 07/28/2023 07/27/2021, 02/27, 05/15/2016, Additional history exists Adult Td,Tdap Booster 09/27/2024 09/27/2014 , 04/14/2010, 07/05/1997 LIPID PANEL 01/01/2025 01/02/2024, 06/27, 07/13/2021, Additional history exists BLOOD PRESSURE 01/24/2025 07/24/2024 DEPRESSION SCREENING 05/27/2025 05/27/2024, 05/09/19 24 CREATININE LEVEL 07/12/2025 07/12/2024, , 07/11/2024, Additional history exists POTASSIUM LEVEL 07/12/2025 07/12/2024, 06/27, 07/11/2024, Additional history exists TSH LEVEL 07/12/2025 07/12/2024, 09/0 08/2023, 06/13/2022, Additional history exists SCREENING FOR DIABETES 07/13/2027 07/12/2024, 2022 OSTEOPOROSIS SCREENING INITIAL (ONE-TIME) Completed 04/25/2021, 12/05/2018 PNEUMOCOCCAL VACCINES (50+ years) Completed 07/10/2021, 09/27/2014, 10/11/2011, Additional history exists HEPATITIS C SCREENING Completed 07/25/2022 , 01/05/2022, 11/15/2020, Additional history exists COVID-19 VACCINE Completed 02/26/2024, 02/2023, 04/13/2022, Additional history exists INFLUENZA VACCINE Completed 02/26/2024, , 03/07/2022, Additional history exists RSV VACCINE Completed 03/11/2024 SMOKING STATUS SCREENING (Once After 26 Yrs) Completed 07/10/2024 HEPATITIS A VACCINES Aged Out No long er eligible based on patient's age to complete this topic HIB VACCINES Aged Out No longer eligi ble based on patient's age to complete this topic MENINGOCOCCAL VACCINES (ACWY) Aged Out No longer eligible based on patient's age to complete this topic Medical Devices Implanted Type Area Pharmacy Assistant Device Identifier Shelf Expiration Date Model / Serial / Lot Screw Bone 2.4x28mm Compression Long Thread Headless - [id number] Implanted:Qty: 2 on 12/20/2017 by Patrick Sanchez MD at [facility] NODATA Right: Hand SYNTHES 02.226.3 28 / / Stem Finger Size 20 Metacarpophalangeal Distal Silicone Preflexed - [id number] Implanted:Qty: 1 on 12/20/2017 by Patrick Sanchez MD at [facility] STANDARD Right: Hand [employer] MJ 02/27/2020 [id number] / / [id number] Stem Finger Size 20 Metacarpophalangeal Distal Silicone Preflexed - [id number] Implanted:Qty: 1 on 12/20/2017 by Patrick Sanchez MD at [facility] STANDARD Right: Hand [employer] MJ 08/27/2019 [id number] / / [id number] Stem Finger Joint Metacarpophalangeal Size 10 Silicone Preflexed- Duplicate - Use Ps # [id number] - [id number] Implanted:Qty: 1 on 12/20/2017 by Patrick Sanchez MD at [facility] STANDARD Right: Hand [employer] MJ 02/27/2020 [id number] / / [id number] Implant Finger Size 5 Pre Flexed Cementless Mcp Pyrocarbon Silicone - [id number] Implanted:Qty: 1 on 12/20/2017 by Patrick Sanchez MD at [facility] STANDARD Right: Hand [employer] Peak Rx #[id number] MJ 02/27/2020 [id number] / / [id number] Right Ankle,Hand,Elbow Left Hand Procedures Procedure Name Priority Date/Time Associated Diagnosis Comments TSH Routine 07/12/2024 5:44 AM EDT BASIC METABOLIC PANEL Routine 07/12/2024 5:44 AM EDT C-REACTIVE PROTEIN Routine 07/12/2024 5: 44 AM EDT CBC Routine 07/12/2024 5:44 AM EDT BASIC METABOLIC PANEL Timed 07/11/2024 9:13 AM EDT PHOSPHORUS Routine 07/11/2024 5:48 AM EDT MAGNESIUM Routine 07/11/2024 5:48 AM EDT C-REACTIVE PROTEIN Routine 07/11/2024 5: 48 AM EDT COMPREHENSIVE METABOLIC PANEL Routine 07/11/2024 5:48 AM EDT CBC AND DIFFERENTIAL Routine 07/11/2024 5:[address] ABDOMEN/PELVIS WITH CONTRAST Routine 07/10/2024 1:09 PM EDT C. DIFFICILE ANTIGEN/TOXIN ASSAY STAT 07/10/2024 9:25 AM EDT C. DIFFICILE PCR STAT 07/10/2024 9:25 AM EDT COVID PANDEMIC RESPIRATORY VIRAL ORDER (PRO) STAT 07/10/2024 8:23 AM EDT ECG 12-LEAD STAT 07/10/2024 7:49 AM EDT LACTIC ACID (LACTATE) STAT 07/10/2024 7:16 AM EDT LIPASE STAT 07/10/2024 7:16 AM EDT PHOSPHORUS STAT 07/10/2024 7:16 AM EDT MAGNESIUM STAT 07/10/2024 7:16 AM EDT LFTS (HEPATIC PANEL) STAT 07/10/2024 7:16 AM EDT BASIC METABOLIC PANEL STAT 07/10/2024 7:16 AM EDT CBC AND DIFFERENTIAL STAT 07/10/2024 7:16 AM EDT BLOOD CULTURE, ROUTINE STAT 07/10/2024 7:16 AM EDT BLOOD CULTURE, ROUTINE STAT 07/10/2024 7:16 AM EDT PHOSPHORUS Timed 05/13/2024 2:09 PM EST BASIC [...] unspecified type Bloating Change in bowel habits LIPID PANEL Routine 01/02/2024 2:12 PM EDT Primary hypertension HEPATITIS C ANTIBODY, QUALITATIVE Routine 01/05/2022 1:56 PM EDT Rheumatoid arthritis involving multiple sites with positive rheumatoid factor BI MAMMOGRAM SCREENING WITH TOMOSYNTHESIS WITH CAD (BILATERAL) Routine 07/27/2021 2:37 PM EDT Encounter for screening mammogram for malignant neoplasm of breast BD DXA AXIAL (SPINE) WITH HIP Routine 04/25/2021 2:45 PM EST Corticosteroid-induc ed osteoporosis from Last 3 Months or Most Recently Relevant to Health Maintenance Results * (ABNORMAL) CBC (07/12/2024 5:44 AM EDT) Only the most recent of3 resultswithin the time period is included. WBC 7.57 4.00 - 11.00 K/uL [facility] RBC 4.87 4.00 - 5.20 M/uL [facility] HGB 13.9 12.0 - 16.0 g/dL [facility] HCT 44.0 36.0 - 46.0 % [facility] PLT 240 150 - 450 K/uL [facility] MCV 90.3 80.0 - 100.0 fL [facility] MCH 28.5 27.0 - 31.0 pg [facility] MCHC 31.6(L) 32.0 - 36.0 g/dL [facility] RDW 13.0 11.5 - 14.5 % [facility] MPV 9.5 8.4 - 12.0 fL [facility] NRBC 0.00 0.00 /100 WBCs [facility] ABSOLUTE NRBC 0.00 0.00 K/uL [facility] Blood 07/12/2024 5:44 AM EDT 07/12/2024 6:05 AM EDT Yoly Grimes DO, MPH LAB BLOOD ORDERABL ES [facility] [address] [place] [address] * (ABNORMAL) C-Reactive Protein (07/12/2024 5:44 AM EDT) Only the most recent of3 resultswithin the time period is included. C REACTIVE PROTEIN 127.1(H) 0.0 - 4.0 mg/L [facility] Blood 07/12/2024 5:44 AM EDT 07/12/2024 6:05 AM EDT Yoly Grimes DO, MPH LAB BLOOD ORDERABL ES Performing Organization Address City/[facility]/ZIP Co de Phone Number [address] [address] * TSH (07/12/2024 5:44 AM EDT) TSH 2.09 0.27 - 4.20 uIU/mL [facility] 07/12/2024 5:44 AM EDT 07/12/2024 6:05 AM EDT Yoly Grimes DO, MPH LAB BLOOD ORDERABL ES Performing Organization Address [facility] Co de Phone Number [address] [address] * (ABNORMAL) Basic metabolic panel (07/12/2024 5:44 AM EDT) Only the most recent of11 resultswithin the time period is included. SODIUM 145 133 - 146 mmol/L [facility] CHLORIDE 116(H) 96 - 108 mmol/L [facility] POTASSIUM 4.0 3.3 - 5.1 mmol/L [facility] CO2 17(L) 21 - 35 mmol/L [facility] BUN 8 6 - 19 mg/dL [facility] CREATININE 0.50 0.5 - 1.5 mg/dL [facility] GLUCOSE 83 70 - 99 mg/dL [facility] CALCIUM 8.3(L) 8.4 - 10.3 mg/dL [facility] EGFR 101 >59 mL/min/1.7 3m2 [facility] Comment:Estimated glomerular filtration rate calculated using the CKD-EPI refit equation. ANION GAP 16 10 - 20 mmol/L [facility] 07/12/2024 5:44 AM EDT 07/12/2024 6:05 AM EDT Yoly Grimes DO, MPH LAB BLOOD ORDERABL ES [address] [address] * (ABNORMAL) Comprehensive metabolic panel (07/11/2024 5:48 AM EDT) Only the most recent of2 resultswithin the time period is included. SODIUM 144 133 - 146 mmol/L [facility] POTASSIUM 3.2(L) 3.3 - 5.1 mmol/L [facility] Comment:Specimen slightly he molyzed, result may be falsely elevated. CHLORIDE 112(H) 96 - 108 mmol/L [facility] CO2 21 21 - 35 mmol/L [facility] BUN 7 6 - 19 mg/dL [facility] CREATININE 0.40(L) 0.5 - 1.5 mg/dL [facility] GLUCOSE 101(H) 70 - 99 mg/dL [facility] ALBUMIN 2.7(L) 3.9 - 4.8 g/dL [facility] TOTAL PROTEIN 5.0(L) 6.5 - 8.0 g/dL [facility] CALCIUM 7.5(L) 8.4 - 10.3 mg/dL [facility] ALKALINE PHOSPHATASE 80 39 - 117 U/L [facility] TOTAL BILIRUBIN 0.4 0.0 - 1.2 mg/dL [facility] AST 27 0 - 37 U/L [facility] ALT 28 0 - 40 U/L [facility] GLOBULIN 2.3 1 - 4.8 g/dL [facility] EGFR 107 >59 mL/min/1.7 3m2 [facility] Comment:Estimated glomerular filtration rate calculated using the CKD-EPI refit equation. ANION GAP 14 10 - 20 mmol/L [facility] Blood 07/11/2024 5:48 AM EDT 07/11/2024 6:07 AM EDT Joann Michael NP LAB BLOOD ORDER LEDY [address] [address] * (ABNORMAL) CBC and differential (07/11/2024 5:48 AM EDT) Only the most recent of7 resultswithin the time period is included. WBC 11.37(H) 4.00 - 11.00 K/uL [facility] RBC 4.71 4.00 - 5.20 M/uL [facility] HGB 13.6 12.0 - 16.0 g/dL [facility] HCT 42.3 36.0 - 46.0 % [facility] PLT 209 150 - 450 K/uL [facility] MCV 89.8 80.0 - 100.0 fL [facility] MCH 28.9 27.0 - 31.0 pg [facility] MCHC 32.2 32.0 - 36.0 g/dL [facility] RDW 13.0 11.5 - 14.5 % [facility] MPV 9.3 8.4 - 12.0 fL [facility] NRBC 0.00 0.00 /100 WBCs [facility] ABSOLUTE NRBC 0.00 0.00 K/uL [facility] DIFF METHOD Auto [facility] NEUTS 74.2 48.0 - 76.0 % [facility] LYMPHS 8.4(L) 18.0 - 41.0 % [facility] MONOS 12.8(H) 4.0 - 11.0 % [facility] EOS 3.9 0.0 - 5.0 % [facility] BASOS 0.4 0.0 - 1.5 % [facility] Granulocytes, immature (%) 0.3 0.0 - 0.9 % [facility] ABSOLUTE NEUTS 8.45(H) 1.92 - 7.60 K/uL [facility] ABSOLUTE LYMPHS 0.95 0.72 - 4.10 K/uL [facility] ABSOLUTE MONOS 1.46(H) 0.16 - 1.10 K/uL [facility] ABSOLUTE EOS 0.44 0.00 - 0.50 K/uL [facility] ABSOLUTE BASOS 0.04 0.00 - 0.15 K/uL [facility] Granulocytes, immature 0.03 0.00 - 0.09 K/uL [facility] Blood 07/11/2024 5:48 AM EDT 07/11/2024 6:07 AM EDT Joann Michael SCRIP CLERK LAB BLOOD ORDER LEDY Performing Organization Address [facility] Co de Phone Number [address] [address] * (ABNORMAL) Phosphorus (07/11/2024 5:48 AM EDT) Only the most recent of10 resultswithin the time period is included. PHOSPHORUS 2.2(L) 2.7 - 4.5 mg/dL [facility] Blood 07/11/2024 5:48 AM EDT 07/11/2024 6:07 AM EDT Joann Michael SCRIP CLERK LAB BLOOD ORDER LEDY Performing Organization Address [facility] de Phone Number [address] [address] * Magnesium (07/11/2024 5:48 AM EDT) Only the most recent of9 resultswithin the time period is included. MAGNESIUM 1.8 1.6 - 2.6 mg/dL [facility] Blood 07/11/2024 5:48 AM EDT 07/11/2024 6:07 AM EDT Joann Michael SCRIP CLERK LAB BLOOD ORDER LEDY Performing Organization Address [facility] Co de Phone Number [address] [address] * CT ABDOMEN/PELVIS WITH CONTRAST (07/10/2024 1:09 PM EDT) Anatomical Region Laterality Modality Abdomen, Pelvis Computed Tomogra phy 07/10/2024 2:31 PM EDT Impressions 07/10/2024 2:48 PM EDT 1. ??Findings suspicious for recurrent infectious colitis involving the right colon, left colon, and rectum, relatively sparing the transverse colon, decreased in severity and overall extent compared to 05/09/2024. 2. ??Additional chronic and/or incidental findings as above. Narrative 07/10/2024 2:[address] ABDOMEN/PELVIS WITH CONTRAST Referring clinician's provided indication for this examination in Epic: * Abdominal pain, fever; Hx c.diff, diarrhea, fever, diffuse abdominal pain TECHNIQUE: Multidetector-row CT of the abdomen and pelvis was performed after administration of intravenous contrast using tailored dose modulation techniques. Images were reconstructed in the axial, coronal, and sagittal planes. COMPARISON: CT ABDOMEN/PELVIS WITH CONTRAST ; CT ABDOMEN/PELVIS WITH CONTRAST ; CT ABDOMEN WITH CONTRAST FINDINGS: Lower Chest: Moderate bibasilar atelectasis, left greater than right. Similar large fat-containing Morgagni hernia. Liver: No focal lesions. Similar atrophy of the left hepatic lobe. Biliary: Status post cholecystectomy. Unchanged prominence of the bile ducts likely related to postcholecystectomy reservoir effect. Spleen: No splenomegaly or focal lesions. Pancreas: No peripancreatic fat stranding or ductal dilatation. Adrenal Glands: No nodules. Kidneys/Ureters: Similar 1.3 cm indeterminate hypodense lesion in the upper pole of the left kidney, partially obscured by streak artifact (2:27). This does not appear significantly changed compared to 04/19/2022 and is favored to be benign. Additional subcentimeter renal hypodensities are too small to characterize but likely benign. Mild bilateral renal scarring. Unchanged 6 mm nonobstructing stone in the left kidney. No hydronephrosis. Bowel: Normal appendix. Wall thickening and mucosal hyperenhancement of the right colon, left colon, and rectum with adjacent haziness, relatively sparing the transverse colon, decreased in severity and overall extent compared to 05/09/2024 and suspicious for recurrent infectious colitis given the clinical history. Background colonic diverticulosis. No large or small bowel dilatation. Most of the small bowel is decompressed, though there are some clustered loops of nondilated fluid- filled small bowel in the pelvis, nonspecific but favored to be nonobstructive (2:76). Peritoneum/Retroperitoneum: No masses, pneumoperitoneum, or fluid. Lymph Nodes: No lymphadenopathy. Pelvic Organs/Bladder: No mass. Vessels: No abdominal aortic aneurysm. Overall moderate atherosclerosis. Bones/Soft Tissues: Partially visualized surgical hardware in the right arm. No significant interval change in severe burst fracture of L1 with approximately millimeters of retropulsion and moderate incomplete burst fracture of T12 involving the superior endplate with 5 mm of retropulsion. Degenerative changes and diffuse osseous demineralization. Procedure Note Diogenes Patel MD - 07/10/2024 CT ABDOMEN/PELVIS WITH CONTRAST Referring clinician's provided indication for this examination in Epic: *Abdominal pain, fever; Hx c.diff, diarrhea, fever, diffuse abdominalpain TECHNIQUE: Multidetector-row CT of the abdomen and pelvis was performedafter administration of intravenous contrast using tailored dosemodulation techniques. Images were reconstructed in the axial, coronal,and sagittal planes. COMPARISON: CT ABDOMEN/PELVIS WITH CONTRAST ; CT ABDOMEN/PELVISWITH CONTRAST ; CT ABDOMEN WITH CONTRAST FINDINGS: Lower Chest: Moderate bibasilar atelectasis, left greater than right.Similar large fat-containing Morgagni hernia. Liver: No focal lesions. Similar atrophy of the left hepatic lobe. Biliary: Status post cholecystectomy. Unchanged prominence of the bileducts likely related to postcholecystectomy reservoir effect. Spleen: No splenomegaly or focal lesions. Pancreas: No peripancreatic fat stranding or ductal dilatation. Adrenal Glands: No nodules. Kidneys/Ureters: Similar 1.3 cm indeterminate hypodense lesion in theupper pole of the left kidney, partially obscured by streak artifact(2:27). This does not appear significantly changed compared to 04/19/2022nd is favored to be benign. Additional subcentimeter renal hypodensitiesare too small to characterize but likely benign. Mild bilateral renalscarring. Unchanged 6 mm nonobstructing stone in the left kidney. Nohydronephrosis. Bowel: Normal appendix. Wall thickening and mucosal hyperenhancement ofthe right colon, left colon, and rectum with adjacent haziness, relativelysparing the transverse colon, decreased in severity and overall extentcompared to 05/09/2024 and suspicious for recurrent infectious colitisgiven the clinical history. Background colonic diverticulosis. No large orsmall bowel dilatation. Most of the small bowel is decompressed, thoughthere are some clustered loops of nondilated fluid-filled small bowel inthe pelvis, nonspecific but favored to be nonobstructive (2:76). Peritoneum/Retroperitoneum: No masses, pneumoperitoneum, or fluid. Lymph Nodes: No lymphadenopathy. Pelvic Organs/Bladder: No mass. Vessels: No abdominal aortic aneurysm. Overall moderate atherosclerosis. Bones/Soft Tissues: Partially visualized surgical hardware in the rightarm. No significant interval change in severe burst fracture of L1 withapproximately millimeters of retropulsion and moderate incomplete burstfracture of T12 involving the superior endplate with 5 mm of retropulsion.Degenerative changes and diffuse osseous demineralization. IMPRESSION: 1. Findings suspicious for recurrent infectious colitis involving theright colon, left colon, and rectum, relatively sparing the transversecolon, decreased in severity and overall extent compared to 05/09/2024. 2. Additional chronic and/or incidental findings as above. Ismael Singh MD IMG CT ABD/PELVIS * (ABNORMAL) C. DIFFICILE PCR (07/10/2024 9:25 AM EDT) Only the most recent of2 resultswithin the time period is included. C.DIFFICILE PCR Positive(A) Negative [facility] Comment:C.difficile gene was detected. C.difficile toxin assay has been reflexed. See separate report. C.DIFFICILE STRAIN PRESUMPTIVE NEGATIVE PRESUMPTIVE NEGATIVE [facility] Comment:Detection of 027/NAP 1/BI strains of C.difficile is presumptive and is solely for epidemiological purposes and is not intended to guide or monitor treatment of infections. Stool (Stool) 07/10/2024 9:2 5 AM EDT 07/10/2024 9:30 AM EDT Ismael Singh MD MICROBIOLOGY - GENER AL ORDERABLES [facility] [address] [place] [address] * (ABNORMAL) Clostridioides (Clostridium) difficile Antigen/Toxin Assay (07/10/2024 9:25 AM EDT) Only the most recent of2 resultswithin the time period is included. C. diff GDH Positive(A) Negative [facility] C. DIFFICILE TOXIN POSITIVE for Clostridium difficile toxin.(A) NEGATIVE for Clostridium difficile toxin. [facility] 07/10/2024 9:25 AM EDT 07/10/2024 9:30 AM EDT Ismael Singh MD MICROBIOLOGY - GENER AL ORDERABLES [address] [address] * COVID Pandemic Respiratory Viral Order (PRO) (07/10/2024 8:23 AM EDT) Pathologist [facility] Test Ordered COVID, Flu has been ordered [facility] Specimen Source/Descriptio n NASOPHARYNGEAL SWAB [facility] Influenza A PCR Not Detected Not Detected [facility] Influenza B PCR Not Detected Not Detected [facility] SARS-CoV 2 (COVID-19) PCR Not Detected Not Detected [facility] Comment: SARS-CoV-2 not detected Negative results do not preclude SARS-CoV-2 infection and should not be used as the sole basis for patient management decisions. Negative results must be combined with clinical observations, patient history, and epidemiological information. Other (Nasopharyngeal swab) 07/10/2024 8:23 AM EDT 07/10/2024 9:29 AM EDT Ismael Singh MD BODY FLUIDS AND STOO LS ORDERABLES [address] [address] * ECG 12-LEAD (07/10/2024 7:49 AM EDT) Only the most recent of2 resultswithin the time period is included. Ventricular Rate EKG/MIN 90 BPM [facility] Atrial Rate 90 BPM [facility] SD Interval 178 ms [facility] QRS Duration 96 ms [facility] QT Interval 378 ms [facility] QTC Interval 462 ms [facility] P [place] 15 degrees [facility] R Wave [place] -18 degrees [facility] T Wave [place] 6 degrees [facility] 07/10/2024 7:49 AM EDT 07/10/2024 12:37 PM EDT Narrative [facility] - 07/10/2024 12:37 PM EDT Normal sinus rhythm Inferior infarct , age undetermined Abnormal ECG When compared with ECG of 11-May-2024 15:26, Inverted T waves have replaced nonspecific T wave abnormality in Inferior leads Confirmed by Mario Coyle ([id number]) on 07/10/2024 12:37:38 PM Ismael Singh MD ECG ORDERABLES Performing Organization Address City/[facility] Co de Phone Number [facility] * Blood Culture, Routine (07/10/2024 7:16 AM EDT) Only the most recent of2 resultswithin the time period is included. Pathologist [facility] Special Requests None 07/10/2024 7:17 AM EDT [facility] BLOOD CULTURE NO GROWTH 5 DAYS 07/15/2024 7:45 AM EDT [facility] Blood (Blood) 07/10/2024 7:1 6 AM EDT 07/10/2024 7:33 AM EDT Comment:BLOOD Ismael Singh MD MICROBIOLOGY - GENER AL ORDERABLES Performing Organization Address City/[facility]/ZIP Co de Phone Number [address] [address] * (ABNORMAL) LFTs (hepatic panel) (07/10/2024 7:16 AM EDT) Only the most recent of2 resultswithin the time period is included. ALKALINE PHOSPHATASE 67 39 - 117 U/L [facility] TOTAL BILIRUBIN 0.4 0.0 - 1.2 mg/dL [facility] DIRECT BILIRUBIN 0.2 0.0 - 0.2 mg/dL [facility] Bilirubin (Indirect) 0.2 0 - 1.5 mg/dL [facility] AST 17 0 - 37 U/L [facility] ALT 9 0 - 40 U/L [facility] TOTAL PROTEIN 6.5 6.5 - 8.0 g/dL [facility] ALBUMIN 3.7(L) 3.9 - 4.8 g/dL [facility] GLOBULIN 2.8 1 - 4.8 g/dL [facility] A/G Ratio 1.32 1.00 - 4.80 RATIO [facility] Blood 07/10/2024 7:16 AM EDT 07/10/2024 7:35 AM EDT Ismael Singh MD LAB BLOOD ORDERABLES [address] [address] * (ABNORMAL) Lipase (07/10/2024 7:16 AM EDT) Only the most recent of2 resultswithin the time period is included. LIPASE 7(L) 16 - 63 U/L [facility] Blood 07/10/2024 7:16 AM EDT 07/10/2024 7:35 AM EDT Ismael Singh MD LAB BLOOD ORDERABLES [address] [address] * Lactate (07/10/2024 7:16 AM EDT) LACTATE 0.79 0.50 - 2.20 mmol/L [facility] Blood 07/10/2024 7:16 AM EDT 07/10/2024 7:35 AM EDT Ismael Singh MD LAB BLOOD ORDERABLES [address] [address] * CT ABDOMEN/PELVIS WITH CONTRAST (05/09/2024 2:49 [...] PA-C, MS IMG CT ABD/PELV IS * Stool culture (05/07/2024 9:57 PM EST) Special Requests None 05/07/2024 9:57 PM EST [facility] Stool Culture NO SALMONELLA, SHIGELLA OR CAMPYLOBACTER ISOLATED 05/11/2024 7:55 AM EST [facility] Stool (Stool) 05/07/2024 9:5 7 PM EST 05/07/2024 10:46 PM EST Marco Antonio Brooks DO MICROBIOLOGY - GENER AL ORDERABLES Performing Organization Address [facility]/ZIP Co de Phone Number [address] [address] * (ABNORMAL) PT-INR (05/07/2024 5:16 PM EST) PT 14.3(H) 10.2 - 12.9 sec [facility] INR 1.3(H) 0.9 - 1.1 [facility] Comment:Therapeutic range fo r oral Vitamin K antagonists: 2.0-3.5 Blood 05/07/2024 5:16 PM EST 05/07/2024 5:20 PM EST Ton Fischer MD LAB BLOOD ORDERABLE S Performing Organization Address City/[facility] Co de Phone Number [address] [address] * (ABNORMAL) Urinalysis w/reflex Urine Culture (05/07/2024 4:55 PM EST) COLOR Yellow Yellow [facility] CLARITY HAZY [facility] GLUCOSE Negative Negative [facility] BILI Negative Negative [facility] KETONES Negative Negative [facility] SPECIFIC GRAVITY <1.005 1.005 - 1.030 [facility] BLOOD Negative Negative [facility] PH 6.0 5.0 - 8.0 [facility] Protein-UA Negative Negative [facility] NITRITE Positive(A) Negative [facility] Leukocyte esterase, ur 2+(A) Negative [facility] Urine (Urine) 05/07/2024 4:5 5 PM EST 05/07/2024 6:31 PM EST Ton Fischer MD URINE ORDERABLES Performing Organization Address City/[facility]/ZIP Co de Phone Number [address] [address] * (ABNORMAL) Urine Culture (05/07/2024 4:55 PM EST) Special Requests None Reflexed from [id number] 05/07/2024 6:46 PM EST [facility] Urine Culture >100,000 colony forming units per mL MIXED RAVEN (3 OR MORE COLONY TYPES) Culture indicates contamination. Please resubmit if necessary. Isolates include 3 morphologies of enteric Gram negative rods and gram positive cocci.(A) 05/10/2024 10:06 AM EST [facility] Urine 05/07/2024 4:55 PM EST 05/07/2024 6:31 PM EST Ton Fischer MD MICROBIOLOGY - GENE RAL ORDERABLES Performing Organization Address City/[facility]/ZIP Co de Phone Number [address] [address] * (ABNORMAL) Urine sediment (05/07/2024 4:55 PM EST) WBC 21-49(A) NONE SEEN /hpf [facility] RBC 3-5(A) NONE SEEN /hpf [facility] URINE EPITHELIAL 5-10(A) NONE SEEN [facility] MUCUS NONE SEEN NONE SEEN /hpf [facility] BACTERIA 3+(A) NONE SEEN /hpf [facility] YEAST 1+(A) NONE SEEN /hpf [facility] 05/07/2024 4:55 PM EST 05/07/2024 6:31 PM EST Ton Fischer MD URINE ORDERABLES [facility] [address] [place] [address] * XR Abdomen Series Supine with Decubitus/Erect [...] evidence of obstruction or pneumoperitoneum. Argelia Taylor SCRIP CLERK IMG XR ABDOMEN * (ABNORMAL) Lipid panel (01/02/2024 2:12 PM EDT) HDL 63 mg/dL [facility] Comment: ? Interpretation <40 mg/dL: Low HDL cholesterol (major risk factor for CHD) Greater than or equal to 60 mg/dL: High HDL cholesterol ( negative risk factor for CHD) HDL - cholesterol is affected by a number of factors, e.g. smoking, excerise, hormones, sex and age. CHOLESTEROL 169 0 - 240 mg/dL [facility] TRIGLYCERIDES 102 30 - 160 mg/dL [facility] LDL 86 50 - 129 mg/dL [facility] Comment: LDL levels in terms of risk for coronary heart disease: <100 mg/dL: Optimal 100-129 mg/dL: Near or above optimal 130-159 mg/dL: Borderline high 160-189 mg/dL: High >190 mg/dL: Very High CARDIAC RISK RATIO 2.7(L) 3.3 - 4.4 C [facility] Blood 01/02/2024 2:12 PM EDT 01/02/2024 2:18 PM EDT Keren Poon CIVIL TRANSPORTATION ENGINEER LAB BLOOD OR DERABLES Performing Organization Address City/[facility]/ZIP Co de Phone Number [address] [address] * Hepatitis C antibody, qualitative (01/05/2022 1:56 PM EDT) HCV NON-REACTIV E NON-REACTI VE [facility] Blood 01/05/2022 1:56 PM EDT 01/05/2022 1:58 PM EDT Marleny Acosta PA LAB BLOOD ORDERA BLES Performing Organization Address [facility] Co de Phone Number [address] [address] * BI MAMMOGRAM SCREENING WITH TOMOSYNTHESIS WITH [...] 12 Months Recommendation: Left Mammography Screening Ita Rodriguez [facility] IM MG EXAMS * BD DXA AXIAL (SPINE) [...] bone mineral density was calculated at 0.643 gm/qp6sloi a T- score of -1.9 falling within [...] femoral neck and total hip osteopenia. Mode YAÑEZ BD BELTRAN NE DENSITY DEXA from Last 3 Months or Most Recently Relevant to Health Maintenance Additional Health Concerns Infection Onset Date Last Indicated C. diff 07/10/2024 07/10/2024 Opal Juares Personal/Family Self 1955 [address] [facility] [address] [address] [place] [address] Blanquita Opal Personal/Family Self 1955 [address] [facility] [address] [place] [address]Opal Iraheta Personal/Family Self 1955 [address] [facility] [address] [place] [address] [place] [id number] Iraheta Personal/Family Self 1955 [address] Opal Mack Personal/Family Self 1955 [address] [place] [address] Advance Directives For more information, please contact: [phone] (9AM - 5PM [facility], Saturday-Saturday) Documents on File Type Date Recorded Patient Portal Architect Expl anation MOLST 08/22/2020 4:20 PM Healthcare Proxy 08/19/2020 1:26 PM * DNR/DNI (No CPR/No Intubation) (Latest Code Status on File) Date Activated Date Inactivated Comments 07/10/2024 5:04 PM Question Answer Comments Code Status Confirmed With: Other (specify below ) Code Discussion Comments: molst * DNR/DNI (No CPR/No Intubation) Date Activated Date Inactivated Comments 05/08/2024 2:06 AM 07/10/2024 5:04 PM Question Answer Comments Code Status Confirmed [...] Answer Comments Code Status Confirmed With: Patient Healthcare Agents on File Name Relationship Healthcare Agent Relationship Communication Néstor Juares Spouse .Primary Healt h Care Agent (Proxy form on file) Care Teams Marine Animal Trainer Relationship Specialty Start Date End Date Keren Poon CNP [address] [place] [address], [address] [place] [address] PCP - General Family Medicine 01/31/23 Cash Fernandes MD [address] [place] [address] Gastroenterology 08/23/20 Willi Wells MD [address] [place], [place] [address] [address] Rheumatology 02/04/24 Jose Thakur MD [address] [place] [address] Mine Deputy Pulmonary Disease 03/17/24 Dana Rucker FNP 15 [facility], [address] [place] [address] Nurse Practitioner Infectious Diseases 05/21/24 Jonathan Alvarez MD [address] [place] [address], [address] [place] [address] Urology 05/14/23 Anival Borja MD [address] [place] [address], [address] [place] [address] Neurologist Neurology 01/04/23 Lyndsay Reynoso FNP [address] [place] [address] [email or web address] Nurse Practitioner Pain Medicine 05/27/22 Gutierrez Pittman MD [address] [place] [address] Drop Wire Hanger Cardiology 05/27/24 Additional Source Comments The information contained in this document represents components of the legal health record. It is not the complete legal health record.[facility]
--- OUTSIDE RECORDS SUMMARY | 2024-07-28 12:10 | XMS_ITS | Encounter Summary ---
Author Organization [facility] Address [address] [place] [address] Care Team Providers Care Android Framework Developer Name Role Phone Charly Saxena Primary Care Provider [phone] Cheryl Calderon MD Primary Care Provider [phone] Reason for Visit * Reason Comments F/u From OV Post injection f/u Encounter Details Date Type Department Care Team (Late st Contact Info) Description 10/24/[address] [facility] Rheumatology [address] [place] [address] Abel Fierro MD [address] [place] [address] F/u From OV (Post injection f/u ) [...] on filedocumented in this encounter Care Teams Android Framework Developer Relationship Specialty Start Date End Date Charly Saxena [facility] [address] [place] [address] PCP - General Internal Medicine 05/25/13 07/16/17 Cheryl Calderon MD [facility] Medicine [address] [place] [address] PCP - General Internal Medicine 07/17/17 documented as of this encounter
--- OUTSIDE RECORDS SUMMARY | 2024-07-28 12:10 | XMS_ITS | Encounter Summary ---
Author Organization [facility] Address [address] [place] [address] Care Team Providers Care Dairy Scientist Name Role Phone Alberto Pacheco Primary Care Provider [phone] Charly Saxena Primary Care Provider [phone] Cheryl Calderon MD Primary Care Provider [phone] Encounter Details Date Type Department Care Team (Late st Contact Info) Description 01/23/2013 Orders Only [facility] Rheumatology [address] [place] [address] Abel Fierro MD [address] [place] [address] Social History Tobacco Use Types Packs/Day Years [...] of this encounter Procedures * Due to [place] state law, this organization might not be [...] in this encounter Results * Due to [place] state law, this organization might not be sharing negative HIV tests. * ERYTHROCYTE SEDIMENTATION RATE (ESR), SHAJIREN (01/23/2013 4:26 PM EDT) Sedimentation Rate [place] (ESR) 4 < OR = 30 mm/h [facility] Comment:{SED RATE BY MODIFIE D KUNAL {[id number]) 01/23/2013 4:26 PM EDT 01/23/2013 11:06 PM EDT Narrative Resulting Agency Comment [id number] us Abel Fierro MD LAB SAME DAY RESULT Final Resul t Performing Organization Address City/State/[facility] Co de Phone Number [facility] [address] [place] [address] * C-REACTIVE PROTEIN (CRP) - INFLAMMATION (01/23/2013 4:26 PM EDT) C reactive protein 0.49 <0.80 mg/dL [facility] Comment: {C-REACTIVE PROTEIN {[id number]) Please be advised that patients taking Carboxypenicillins may exhibit falsely decreased C-Reactive Protein levels due to an analytical interference in this assay. 01/23/2013 4:26 PM EDT 01/23/2013 11:06 PM EDT Narrative Resulting Agency Comment [id number] us Abel Fierro MD LABORATORY Final Result Performing Organization Address [facility] Co de Phone Number [facility] [address] [place] [address] * CREATININE WITH GLOMERULAR FILTRATION RATE, ESTIMATED (EGFR) (01/23/2013 4:26 PM EDT) Creatinine 0.81 0.50 - 1.05 mg/dL [facility] Comment: {CREATININE {[id number]) For patients >49 years of age, the reference limit for Creatinine is approximately 13% higher for people identified as -Cymraes. GFR 80 > OR = 60 mL/min/1. 73m2 [facility] Comment:{eGFR NON-AFR. AMERI CAN {[id number]) GFR () 93 > OR = 60 mL/min/1. 73m2 [facility] Comment:{eGFR AMERIC AN {[id number]) 01/23/2013 4:26 PM EDT 01/23/2013 11:06 PM [...] needs for GFR calculation. Resulting Agency Comment [id number] us Abel Fierro MD LAB SAME DAY RESULT Final Resul t Performing Organization Address [facility] Co de Phone Number [facility] [address] [place] [address] * (ABNORMAL) CBC INCLUDES DIFFERENTIAL AND PLATELET COUNT (01/23/2013 4:26 PM EDT) WBC 7.3 3.8 - 10.8 Thousand/ uL [facility] Comment:{WHITE BLOOD CELL CO UNT {[id number]) RBC 5.80(H) 3.80 - 5.10 Million/u L [facility] Comment:{RED BLOOD CELL COUN T {[id number]) Hemoglobin 15.0 11.7 - 15.5 g/dL [facility] Comment:{HEMOGLOBIN {[id number]) Hematocrit 47.0(H) 35.0 - 45.0 % [facility] Comment:{HEMATOCRIT {[id number]) MCV 81.1 80.0 - 100.0 fL [facility] Comment:{MCV {[id number]) MCH 25.9(L) 27.0 - 33.0 pg [facility] Comment:{MCH {[id number]) MCHC 31.9(L) 32.0 - 36.0 g/dL [facility] Comment:{MCHC {[id number]) RDW 16.0(H) 11.0 - 15.0 % [facility] Comment:{RDW {[id number]) PLT 327 140 - 400 Thousand/ uL [facility] Comment:{PLATELET COUNT {[id number]) MPV 7.8 7.5 - 11.5 fL [facility] Comment:{MPV {[id number]) Neutrophils # 3548 1500 - 7800 cells/uL [facility] Comment:{ABSOLUTE NEUTROPHIL S {[id number]) Lymphocytes # 2745 850 - 3900 cells/uL [facility] Comment:{ABSOLUTE LYMPHOCYTE S {[id number]) Monocytes # 767 200 - 950 cells/uL [facility] Comment:{ABSOLUTE MONOCYTES {[id number]) Eosinophils # 190 15 - 500 cells/uL [facility] Comment:{ABSOLUTE EOSINOPHIL S {[id number]) Basophils # 51 0 - 200 cells/uL [facility] Comment:{ABSOLUTE BASOPHILS {[id number]) Neutrophils % 48.6 % [facility] Comment:{NEUTROPHILS {[id number]) Lymphocytes % 37.6 % [facility] Comment:{LYMPHOCYTES {[id number]) Monocytes % 10.5 % [facility] Comment:{MONOCYTES {[id number]) Eosinophils % 2.6 % [facility] Comment:{EOSINOPHILS {[id number]) Basophils % 0.7 % [facility] Comment:{BASOPHILS {[id number]) 01/23/2013 4:26 PM EDT 01/23/2013 11:06 PM EDT Narrative Resulting Agency Comment [id number] us Abel Fierro MD LAB SAME DAY RESULT Final Resul t Performing Organization Address [facility] de Phone Number [facility] [address] [place] [address] * ASPARTATE AMINOTRANSFERASE (AST), SERUM (01/23/2013 4:26 PM EDT) AST (SGOT) 22 10 - 35 U/L [facility] Comment:{AST {[id number]) 01/23/2013 4:26 PM EDT 01/23/2013 11:06 PM EDT Narrative Resulting Agency Comment [id number] us Abel Fierro MD LAB SAME DAY RESULT Final Resul t Performing Organization Address [facility] de Phone Number [facility] [address] [place] [address] * ALANINE AMINOTRANSFERASE (ALT), SERUM (01/23/2013 4:26 PM EDT) ALT (SGPT) 21 6 - 29 U/L [facility] Comment:{ALT {[id number]) 01/23/2013 4:26 PM EDT 01/23/2013 11:06 PM EDT Narrative Resulting Agency Comment [id number] Abel Fierro MD LAB SAME DAY RESULT Final Resul t Performing Organization Address [facility] de Phone Number [facility] [address] [place] [address] documented in this encounter Visit Diagnoses Diagnosis Rheumatoid arthritis(714.0) Rheumatoid arthritis documented in this encounter Care Teams Dairy Scientist Relationship Specialty Start Date End Date Alberto Pacheco [address] [place] [address] PCP - General 07/19/08 05/24/13 Charly Saxena [facility] [address] [place] [address] PCP - General Internal Medicine 05/25/13 07/16/17 Cheryl Calderon MD [facility] [address] [place] [address] PCP - General Internal Medicine 07/17/17 documented as of this encounter
--- OUTSIDE RECORDS SUMMARY | 2024-07-28 12:10 | XMS_ITS | Encounter Summary ---
Author Organization [facility] Address [address] [place] [address] Care Team Providers Care Travelers' Aid Worker Name Role Phone Charly Saxena Primary Care Provider [phone] Cheryl Calderon MD Primary Care Provider [phone] Encounter Details Date Type Department Care Team (Late st Contact Info) Description 07/06/2015 Orders Only [facility] Rheumatology [address] [place] [address] Abel Fierro MD [address] [place] [address] Social History Tobacco Use Types Packs/Day Years [...] - 0.99 mg/dL [facility] Comment: {CREATININE {[id number]) For patients >49 years of age, the reference limit for Creatinine is approximately 13% higher for people identified as -[place] Islander. GFR 69 > OR = 60 mL/min/1. 73m2 [facility] Comment:{eGFR NON-AFR. AMERI CAN {[id number]) GFR () 81 > OR = 60 mL/min/1. 73m2 [facility] Comment:{eGFR AMERIC AN {[id number]) 07/06/2015 1:10 PM EST 07/07/2015 12:26 AM [...] needs for GFR calculation. Resulting Agency Comment [id number] us Abel Fierro MD LAB SAME DAY RESULT Final Resul t Performing Organization Address [facility] Co de Phone Number [facility] [address] [place] [address] * (ABNORMAL) ALANINE AMINOTRANSFERASE (ALT), SERUM (07/06/2015 1:10 PM EST) ALT (SGPT) 35(H) 6 - 29 U/L [facility] Comment:{ALT {[id number]) 07/06/2015 1:10 PM EST 07/07/2015 12:26 AM EST Narrative Resulting Agency Comment [id number] Abel Fierro MD LAB SAME DAY RESULT Final Resul t Performing Organization Address [facility] de Phone Number [facility] [address] [place] [address] * ASPARTATE AMINOTRANSFERASE (AST), SERUM (07/06/2015 1:10 PM EST) AST (SGOT) 24 10 - 35 U/L [facility] Comment:{AST {[id number]) 07/06/2015 1:10 PM EST 07/07/2015 12:26 AM EST Narrative Resulting Agency Comment [id number] Abel Fierro MD LAB SAME DAY RESULT Final Resul t Performing Organization Address [facility] de Phone Number [facility] [address] [place] [address] * (ABNORMAL) CBC INCLUDES DIFFERENTIAL AND PLATELET COUNT (07/06/2015 1:10 PM EST) WBC 9.5 3.8 - 10.8 Thousand/ uL [facility] Comment:{WHITE BLOOD CELL CO UNT {[id number]) RBC 5.89(H) 3.80 - 5.10 Million/u L [facility] Comment:{RED BLOOD CELL COUN T {[id number]) Hemoglobin 15.7(H) 11.7 - 15.5 g/dL [facility] Comment:{HEMOGLOBIN {[id number]) Hematocrit 48.6(H) 35.0 - 45.0 % [facility] Comment:{HEMATOCRIT {[id number]) MCV 82.5 80.0 - 100.0 fL [facility] Comment:{MCV {[id number]) MCH 26.7(L) 27.0 - 33.0 pg [facility] Comment:{MCH {[id number]) MCHC 32.3 32.0 - 36.0 g/dL [facility] Comment:{MCHC {[id number]) RDW 15.9(H) 11.0 - 15.0 % [facility] Comment:{RDW {[id number]) PLT 356 140 - 400 Thousand/ uL [facility] Comment:{PLATELET COUNT {[id number]) MPV 7.5 7.5 - 11.5 fL [facility] Comment:{MPV {[id number]) Neutrophils # 7999(H) 1500 - 7800 cells/uL [facility] Comment:{ABSOLUTE NEUTROPHIL S {[id number]) Lymphocytes # 979 850 - 3900 cells/uL [facility] Comment:{ABSOLUTE LYMPHOCYTE S {[id number]) Monocytes # 428 200 - 950 cells/uL [facility] Comment:{ABSOLUTE MONOCYTES {[id number]) Eosinophils # 48 15 - 500 cells/uL [facility] Comment:{ABSOLUTE EOSINOPHIL S {[id number]) Basophils # 48 0 - 200 cells/uL [facility] Comment:{ABSOLUTE BASOPHILS {[id number]) Neutrophils % 84.2 % [facility] Comment:{NEUTROPHILS {[id number]) Lymphocytes % 10.3 % [facility] Comment:{LYMPHOCYTES {[id number]) Monocytes % 4.5 % [facility] Comment:{MONOCYTES {[id number]) Eosinophils % 0.5 % [facility] Comment:{EOSINOPHILS {[id number]) Basophils % 0.5 % [facility] Comment:{BASOPHILS {[id number]) 07/06/2015 1:10 PM EST 07/07/2015 12:26 AM EST Narrative Resulting Agency Comment [id number] us Abel Fierro MD LAB SAME DAY RESULT Final Resul t [facility] [address] [place] [address] documented in this encounter Visit Diagnoses Diagnosis Rheumatoid arthritis involving both feet, unspecified rheumatoid factor presence (HCC) [M06.071, M06.072] documented in this encounter Care Teams Travelers' Aid Worker Relationship Specialty Start Date End Date Charly Saxena [facility] [address] [place] [address] PCP - General Internal Medicine 05/25/13 07/16/17 Cheryl Calderon MD [facility] Medicine [address] [place] [address] PCP - General Internal Medicine 07/17/17 documented as of this encounter
--- OUTSIDE RECORDS SUMMARY | 2024-07-28 12:10 | XMS_ITS | Encounter Summary ---
Author Organization [facility] Address [address] [place] [address] Care Team Providers Care Literary Agent Name Role Phone Alberto Pacheco Primary Care Provider [phone] Charly Saxena Primary Care Provider [phone] Cheryl Calderon MD Primary Care Provider [phone] Reason for Visit * Reason Comments E-prescribing Refill Request Encounter Details Date Type Department Care Team (Late st Contact Info) Description 05/11/2013 Refill [facility] Rheumatology [address] [place] [phone] Anival Baels MD E-prescribing Refill Request Social History Tobacco [...] of her nearly 4-year-old grandson Harshil in [place]. Next OV: Future Appointments Date Time Provider [...] on filedocumented in this encounter Care Teams Literary Agent Relationship Specialty Start Date End Date Alberto Pacheco [address] [place] [address] PCP - General 07/19/08 05/24/13 Charly Saxena [facility] [address] [place] [address] PCP - General Internal Medicine 05/25/13 07/16/17 Cheryl Calderon MD [facility] Adult Medicine [address] [place] [address] PCP - General Internal Medicine 07/17/17 documented as of this encounter
--- OUTSIDE RECORDS SUMMARY | 2024-07-28 12:10 | XMS_ITS | Encounter Summary ---
Author Organization [facility] Address [address] [place] [address] Care Team Providers Care Lead Sustainability Specialist Name Role Phone Charly Saxena Primary Care Provider Cheryl Calderon MD Primary Care Provider [phone] Encounter Details Date Type Department Care Team (Late st Contact Info) Description 06/13/2015 Orders Only [facility] Rheumatology [address] [place] [address] Abel Fierro MD [address] [place] [address] Social History Tobacco Use Types Packs/Day Years [...] of this encounter Results * Due to [place] [...] presence documented in this encounter Care Teams Lead Sustainability Specialist Relationship Specialty Start Date End Date Charly Saxena [facility] [place] [address] PCP - General Internal Medicine 05/25/13 07/16/17 Cheryl Calderon MD [facility] Adult Medicine [address] [place] [address] PCP - General Internal Medicine 07/17/17 documented as of this encounter
--- OUTSIDE RECORDS SUMMARY | 2024-07-28 12:10 | XMS_ITS | Encounter Summary ---
Author Organization [facility] Address [address] [place] [address] Care Team Providers Care Co Founder And Director Name Role Phone Alberto Pacheco Primary Care Provider [phone] Charly Saxena Primary Care Provider [phone] Cheryl Calderon MD Primary Care Provider [phone] Encounter Details Date Type Department Care Team (Late st Contact Info) Description 08/05/2012 Orders Only [facility] Rheumatology [address] [place] [address] Abel Fierro MD [address] [place] [address] Social History Tobacco Use Types Packs/Day Years [...] of this encounter Procedures * Due to [place] state law, this organization might not be [...] in this encounter Results * Due to [place] state law, this organization might not be sharing negative HIV tests. * CREATININE WITH GLOMERULAR FILTRATION RATE, ESTIMATED (EGFR) (08/05/2012 12:53 PM EDT) Creatinine 0.80 0.50 - 1.05 mg/dL [facility] Comment: {CREATININE {[id number]) For patients >49 years of age, the reference limit for Creatinine is approximately 13% higher for people identified as -Colombian. GFR 82 > OR = 60 mL/min/1. 73m2 [facility] Comment:{eGFR NON-AFR. AMERI CAN {[id number]) GFR () 95 > OR = 60 mL/min/1. 73m2 [facility] Comment:{eGFR AMERIC AN {[id number]) 08/05/2012 12:5 3 PM EDT 08/05/2012 4:46 [...] needs for GFR calculation. Resulting Agency Comment [id number] us Abel Fierro MD LAB SAME DAY RESULT Final Resul t [facility] [address] [place] [address] * (ABNORMAL) CBC INCLUDES DIFFERENTIAL AND PLATELET COUNT (08/05/2012 12:53 PM EDT) WBC 7.8 3.8 - 10.8 Thousand/ uL [facility] Comment:{WHITE BLOOD CELL CO UNT {[id number]) RBC 5.22(H) 3.80 - 5.10 Million/u L [facility] Comment:{RED BLOOD CELL COUN T {[id number]) Hemoglobin 14.0 11.7 - 15.5 g/dL [facility] Comment:{HEMOGLOBIN {[id number]) Hematocrit 44.8 35.0 - 45.0 % [facility] Comment:{HEMATOCRIT {[id number]) MCV 85.8 80.0 - 100.0 fL [facility] Comment:{MCV {[id number]) MCH 26.9(L) 27.0 - 33.0 pg [facility] Comment:{MCH {[id number]) MCHC 31.4(L) 32.0 - 36.0 g/dL [facility] Comment:{MCHC {[id number]) RDW 15.9(H) 11.0 - 15.0 % [facility] Comment:{RDW {[id number]) PLT 305 140 - 400 Thousand/ uL [facility] Comment:{PLATELET COUNT {[id number]) MPV 8.0 7.5 - 11.5 fL [facility] Comment:{MPV {[id number]) Neutrophils # 3237 1500 - 7800 cells/uL [facility] Comment:{ABSOLUTE NEUTROPHIL S {[id number]) Lymphocytes # 3229 850 - 3900 cells/uL [facility] Comment:{ABSOLUTE LYMPHOCYTE S {[id number]) Monocytes # 1014(H) 200 - 950 cells/uL [facility] Comment:{ABSOLUTE MONOCYTES {[id number]) Eosinophils # 273 15 - 500 cells/uL [facility] Comment:{ABSOLUTE EOSINOPHIL S {[id number]) Basophils # 47 0 - 200 cells/uL [facility] Comment:{ABSOLUTE BASOPHILS {[id number]) Neutrophils % 41.5 % [facility] Comment:{NEUTROPHILS {[id number]) Lymphocytes % 41.4 % [facility] Comment:{LYMPHOCYTES {[id number]) Monocytes % 13.0 % [facility] Comment:{MONOCYTES {[id number]) Eosinophils % 3.5 % [facility] Comment:{EOSINOPHILS {[id number]) Basophils % 0.6 % [facility] Comment:{BASOPHILS {[id number]) 08/05/2012 12:5 3 PM EDT 08/05/2012 4:46 PM EDT Narrative Resulting Agency Comment [id number] us Abel Fierro MD LAB SAME DAY RESULT Final Resul t Performing Organization Address City/[facility] Co de Phone Number [facility] [address] [place] [address] * ALANINE AMINOTRANSFERASE (ALT), SERUM (08/05/2012 12:53 PM EDT) ALT (SGPT) 18 6 - 40 U/L [facility] Comment:{ALT {[id number]) 08/05/2012 12:5 3 PM EDT 08/05/2012 4:46 PM EDT Narrative Resulting Agency Comment [id number] us Abel Fierro MD LAB SAME DAY RESULT Final Resul t Performing Organization Address [facility] Co de Phone Number [facility] [address] [place] [address] * ASPARTATE AMINOTRANSFERASE (AST), SERUM (08/05/2012 12:53 PM EDT) AST (SGOT) 17 10 - 35 U/L [facility] Comment:{AST {[id number]) 08/05/2012 12:5 3 PM EDT 08/05/2012 4:46 PM EDT Narrative Resulting Agency Comment [id number] us Abel Fierro MD LAB SAME DAY RESULT Final Resul t Performing Organization Address City/[facility] Co de Phone Number [facility] [address] [place] [address] documented in this encounter Visit Diagnoses Diagnosis Rheumatoid arthritis(714.0) Rheumatoid arthritis documented in this encounter Care Teams Co Founder And Director Relationship Specialty Start Date End Date Alberto Pacheco [address] [place] [address] PCP - General 07/19/08 05/24/13 Charly Saxena [facility] [place] [address] PCP - General Internal Medicine 05/25/13 07/16/17 Cheryl Calderon MD [facility] Medicine [address] [place] [address] PCP - General Internal Medicine 07/17/17 documented as of this encounter
--- OUTSIDE RECORDS SUMMARY | 2024-07-28 12:10 | XMS_ITS | Encounter Summary ---
Author Organization [facility] Address [address] [place] [address] Care Team Providers Care Film Processor Name Role Phone Alberto Pacheco Primary Care Provider [phone] Unknown Pcp, Non [facility] Primary Care Provider Unava ilCharly Antoine Primary Care Provider [phone] Charly Saxena Primary Care Provider Cheryl Calderon MD Primary Care Provider [phone] Encounter Details Date Type Department Care Team (Late st Contact Info) Description 03/14/2006 Orders Only [facility] Rheumatology [address] [place] [address] Nikkie Moss, GRAIN [employer] YEAST PLANTS SUPERVISOR [address] [place], [place] [phone] Social History Tobacco Use Types Packs/Day Years [...] on filedocumented in this encounter Care Teams Film Processor Relationship Specialty Start Date End Date Alberto Pacheco [address] [place] [address] PCP - General 07/19/08 05/24/13 Unknown Pcp, Non [facility]mg PCP - General 06/30/08 07/18/08 Charly Saxena [facility] [address] [place] [address] PCP - General 01/18/06 06/29/08 Charly Saxena [facility] [address] [place] [address] PCP - General Internal Medicine 05/25/13 07/16/17 Cheryl Calderon MD [facility] Medicine [address] [place] [address] PCP - General Internal Medicine 07/17/17 documented as of this encounter
--- OUTSIDE RECORDS SUMMARY | 2024-07-28 12:10 | XMS_ITS | Encounter Summary ---
Author Organization [facility] Address [address] [place] [address] Care Team Providers Care Professor Of Graphic Design Name Role Phone Charly Saxena Primary Care Provider [phone] Cheryl Calderon MD Primary Care Provider [phone] Encounter Details Date Type Department Care Team (Late st Contact Info) Description 05/25/2013 Orders Only [facility] Rheumatology [address] [place] [address] Abel Fierro MD [address] [place] [address] Social History Tobacco Use Types Packs/Day Years [...] <0.80 mg/dL [facility] Comment: {C-REACTIVE PROTEIN {[id number]) Please be advised that patients taking Carboxypenicillins may exhibit falsely decreased C-Reactive Protein levels due to an analytical interference in this assay. 05/25/2013 3:30 PM EST 05/25/2013 6:52 PM EST Narrative Resulting Agency Comment [id number] us Abel Fierro MD LABORATORY Final Result Performing Organization Address [facility] de Phone Number [facility] [address] [place] [address] * (ABNORMAL) ERYTHROCYTE SEDIMENTATION RATE (ESR), SHAJIREN (05/25/2013 3:30 PM EST) Sedimentation Rate [place] (ESR) 32(H) < OR = 30 mm/h [facility] Comment:{SED RATE BY MODIFIE D KUNAL {[id number]) 05/25/2013 3:30 PM EST 05/25/2013 6:52 PM EST Narrative Resulting Agency Comment [id number] us Abel Fierro MD LAB SAME DAY RESULT Final Resul t Performing Organization Address [facility] de Phone Number [facility] [address] [place] [address] documented in this encounter Visit Diagnoses Diagnosis Rheumatoid arthritis(714.0) Rheumatoid arthritis documented in this encounter Care Teams Professor Of Graphic Design Relationship Specialty Start Date End Date Charly Saxena [facility] [place], [place] [phone] PCP - General Internal Medicine 05/25/13 07/16/17 Cheryl Calderon MD [facility] Adult Medicine [address] [place] [address] [place] [address] PCP - General Internal Medicine 07/17/17 documented as of this encounter
--- OUTSIDE RECORDS SUMMARY | 2024-07-28 12:11 | XMS_ITS | Encounter Summary ---
Author Organization [facility] Address [address] [place] [address] Phone Care Team Providers Care New Car Make Ready Worker Name Role Phone Cash Fernandes MD Unavailable [phone] Keren Poon [facility] Primary Care Provid er Chavo Jack MD Unavailable Willi Wells MD Unavailable Jose Thakur MD Unavailable [phone] Dana Rucker DIETITIAN RESEARCH Unavailable Jonathan Alvarez MD Unavailable [phone] Anival Borja MD Unavailable Lyndsay Reynoso DIETITIAN RESEARCH Unavailable Gutierrez Pittman MD Unavailable [phone] Encounter Details Date Type Department Care Team (Late st Contact Info) Description 04/10/2024 Procedure Pass [facility], Ct Scan - [address] [address] Social History Tobacco Use Types Packs/Day Years [...] st Contact Info) Description 06/06/2024 Procedure Pass [address] [address] 07/28/2024 1:00 PM EDT [facility] [address] [place] [address] Trice De Santiago LPN [address] [place] [address] 07/30/2024 3:30 PM EDT Office Visit [facility] [address] [place] [address] [place] [address] Keren Poon, ORI 170 [facility], 2nd [place] [address] 08/04/2024 2:30 AM EDT [facility] [address] [place] [address] Orlando Mckeon, RENZO [address] [place] [address] 08/11/2024 2:00 AM EDT [facility] [address] [place] [phone] Orlando Mckeon RN [address] [place] [address] 08/18/2024 1:30 AM EDT Home Care Visit [facility] [address] [place], [place] [phone] Orlando Mckeon RN [address] [place] [address] 08/25/2024 1:00 AM EDT Home Care Visit [facility] [address] [place] [address] Orlando Mckeon RN [address] [place] [address] 09/01/2024 12:30 AM EDT Appointment [facility] [address] [place] [address] Orlando Mckeon RN [address] [place] [address] 09/18/2024 2:30 PM EDT Office Visit [facility] Infectious Diseases [address] [place] [address] Dana Rucker, DIETITIAN RESEARCH 15 [facility], [address] [place] [address] 11/26/2024 3:30 PM EDT Office Visit [facility] [address] [place] [address] [place] [address] Keren Poon, PIANO SOUNDING BOARD MATCHER [address] [address] 12/11/2024 2:00 PM EDT Appointment [facility] [address] [place] [address] Keren Poon, ORI 170 [facility], 2nd [place] [address] [email or web address] 01/07/2025 2:30 PM EDT Office Visit [facility] [address] [place] [address] Jose Thakur MD [address] [place] [address] 06/03/2025 2:00 PM EST Office Visit [facility] [address] [place] [address] Dr [place] [address] Keren Poon, ORI 170 [facility], 2nd [place] [address] documented as of this encounter Visit Diagnoses [...] documented as of this encounter Care Teams New Car Make Ready Worker Relationship Specialty Start Date End Date Keren Poon CNP [address] [place] [address] [email or web address] PCP - General Family Medicine 01/31/23 Cash Fernandes MD [address] [place] [address] Gastroenterology 08/23/20 Chavo Jack MD [address] [place] [address] [email or web address] Insurance Assigned Provider 08/03/23 05/04/24 Willi Wells MD [address] [place], [place] [address] [address] Rheumatology 02/04/24 Jose Thakur MD [address] [place] [address] [facility] Pulmonary Disease 03/17/24 Dana Rucker FNP 15 [facility], [address] [place] [address] [email or web address] Nurse Practitioner Infectious Diseases 05/21/24 Jonathan Alvarez MD [address] [place] [address], [address] [place] [address] [email or web address] Urology 05/14/23 Anival Borja MD [address] [place] [address] [address] [place] [address] [email or web address] Neurologist Neurology 01/04/23 Lyndsay Reynoso FNP 10 [facility] [address] [place] [address] [email or web address] Nurse Practitioner Pain Medicine 05/27/22 Gutierrez Pittman MD [address] [place] [address] Care Worker Cardiology 05/27/24 documented as of this encounter Additional Source Comments The information contained in this document represents components of the legal health record. It is not the complete legal health record.[facility]
--- OUTSIDE RECORDS SUMMARY | 2024-07-28 12:11 | XMS_ITS | Encounter Summary ---
Author Organization [facility] Address [address] [place] [address] Phone Care Team Providers Care Supervisor Coin Machine Name Role Phone JessicaMattie oliveirasheryl Mccrackengh [facility] Primary Care Provider Cash Fernandes MD Unavailable [phone] Seven Menchaca MD Unavailable [phone] Chavo Jack MD Primary Care Provider [phone] Keren Poon [facility] Primary Care Provid er Chavo Jack MD Unavailable Willi Wells MD Unavailable Jose Thakur MD Unavailable [phone] Dana Rucker REHABILITATION CONSULTANT Unavailable Jonathan Alvarez MD Unavailable [phone] Anival Borja MD Unavailable [phone] Lyndsay Reynoso REHABILITATION CONSULTANT Unavailable [phone] Gutierrez Pittman MD Unavailable [phone] Encounter Details Date Type Department Care Team (Late st Contact Info) Description 02/21/2022 Procedure Pass [facility] Admitting Dept Virtual Department [address] [place] [address] Social History Tobacco Use Types Packs/Day Years [...] high school, GED, job training, learning the Thai language, technical skills, or developing parenting skills)? [...] st Contact Info) Description 06/06/2024 Procedure Pass [facility], [facility]- [address] [address] 07/28/2024 1:00 PM EDT Home Care Visit [facility] [address] [place] [phone] Trice De Santiago LPN [address] [place] [address] [email or web address] 07/30/2024 3:30 PM EDT Office Visit [facility] [address] [place] [address] [place] [address] Keren Poon, ORI 170 [facility], 2nd [place] [address] 08/04/2024 2:30 AM EDT Home Care Visit [facility] [address] [place] [phone] Orlando Mckeon RN [address] [place] [address] [email or web address] 08/11/2024 2:00 AM EDT Home Care Visit [facility] [address] [place] [phone] Orlando Mckeon RN [address] [place] [address] [email or web address] 08/18/2024 1:30 AM EDT Home Care Visit [facility] [address] [place] [phone] Orlando Mckeon RN [address] [place] [address] [email or web address] 08/25/2024 1:00 AM EDT Home Care Visit [facility] [address] [place] [phone] Orlando Mckeon RN [address] [place] [address] 09/01/2024 12:30 AM EDT Appointment [facility] 30 [place] [address] Orlando Mckeon RN [address] [place] [address] 09/18/2024 2:30 PM EDT Office Visit [facility] Infectious Diseases [address] [place] [address] Dana Rucker FNP [address] [address] 11/26/2024 3:30 PM EDT Office Visit [address] [place] [address] Keren Poon, ORI [address] [address] 12/11/2024 2:00 PM EDT Appointment [address] [address] Keren Poon, CONTRACT AGENT [address] [place] [address] 01/07/2025 2:30 PM EDT Office Visit [facility] [address] [place] [address] Jose Thakur MD 30 [place] [address] 06/03/2025 2:00 PM EST Office Visit [address] [place] [address] Keren Poon CNP 170 [facility], 2nd Floor [place] [address] [email or web address] documented as of this encounter Visit Diagnoses [...] as of this encounter Care Teams Supervisor Coin Machine Relationship Specialty Start Date End Date Ita Pineda CNP [address] [place] [address] [email or web address] PCP - General Internal Medicine 08/19/20 09/17/22 Chavo Jack MD [address] [place] [address] [email or web address] PCP - General Internal Medicine 09/18/22 01/30/23 Keren Poon CNP [address] [place] [address] [email or web address] PCP - General Family Medicine 01/31/23 Cash Fernandes MD [address] [place] [address] [email or web address] Gastroenterology 08/23/20 Seven Menchaca MD [address] [place] [address] [email or web address] Insurance Assigned Provider 08/04/22 08/03/23 Chavo Jack MD [address] [place] [address] [email or web address] Insurance Assigned Provider 08/03/23 05/04/24 Willi Wells MD [address] [place] [address] Rheumatology 02/04/24 Jose Thakur MD 30 [place] [address] [email or web address] Test Engine Operator Pulmonary Disease 03/17/24 Dana Rucker FNP [address] [address] [email or web address] Nurse Practitioner Infectious Diseases 05/21/24 Jonathan Alvarez MD [address] [place] [address], [address] [place] [address] Urology 05/14/23 Anival Borja MD [address] [place] [address], [address] [place] [address] [email or web address] Neurologist Neurology 01/04/23 Lyndsay Reynoso FNP [address] [place] [address] [place] [address] [email or web address] Nurse Practitioner Pain Medicine 05/27/22 Gutierrez Pittman MD [address] [place] [phone] Entry Level Sales Associate Cardiology 05/27/24 documented as of this encounter Additional Source Comments The information contained in this document represents components of the legal health record. It is not the complete legal health record.[facility]
--- OUTSIDE RECORDS SUMMARY | 2024-07-28 12:11 | XMS_ITS | Encounter Summary ---
Author Organization [facility] Address [address] [place] [address] Care Team Providers Care Photograph Enlarger Name Role Phone Cheryl Calderon MD Primary Care Provider [phone] Encounter Details Date Type Department Care Team (Late st Contact Info) Description 11/18/2018 Orders Only [facility] Hematology/Oncology 1 [facility] [address] [place] [phone] Liliana Calderon, JULI [address] [place] [address] Social History Tobacco Use Types Packs/Day Years [...] 12:14 AM EDT Narrative Resulting Agency Comment [id number] Liliana Calderon NP LABORATORY Final Result Performing Organization Address [facility] Co de Phone Number [facility] [address] [place] [address] * (ABNORMAL) FERRITIN (11/18/2018 3:38 PM EDT) Ferritin 634(H) 16 - 288 ng/mL [facility] 11/18/2018 3:38 PM EDT 11/19/2018 12:14 AM EDT Narrative Resulting Agency Comment [id number] Liliana Calderon NP LABORATORY Final Result Performing Organization Address [facility] Co de Phone Number [facility] [address] [place] [address] * LACTATE DEHYDROGENASE (LDH), SERUM (11/18/2018 3:38 PM EDT) Lactate dehydrogenase 156 120 - 250 U/L [facility] 11/18/2018 3:38 PM EDT 11/19/2018 12:14 AM EDT Narrative Resulting Agency Comment [id number] Liliana Calderon NP LABORATORY Final Result Performing Organization Address [facility]/ZIP Co de Phone Number [facility] [address] [place] [address] * (ABNORMAL) CBC INCLUDES DIFFERENTIAL AND PLATELET [...] 12:14 AM EDT Narrative Resulting Agency Comment [id number] Liliana Calderon ELECTRICAL PROJECT ENGINEER LAB SAME DAY RESULT Final Result [facility] [address] [place] [address] documented in this encounter Visit Diagnoses Diagnosis Leukopenia, unspecified type Iron deficiency Iron deficiency anemia, unspecified documented in this encounter Care Teams Photograph Enlarger Relationship Specialty Start Date End Date Cheryl Calderon MD [facility] Adult Medicine [address] [place] [address] PCP - General Internal Medicine 07/17/17 documented as of this encounter
--- OUTSIDE RECORDS SUMMARY | 2024-07-28 12:11 | XMS_ITS | Encounter Summary ---
Author Organization [facility] Address [address] [place] [address] Care Team Providers Care Vigoureux Printer Name Role Phone Charly Saxena Primary Care Provider [phone] Cheryl Calderon MD Primary Care Provider [phone] Encounter Details Date Type Department Care Team (Late st Contact Info) Description 10/15/2013 Orders Only [facility] Rheumatology [address] [place] [address] Abel Fierro MD 5 [place] [address] Social History Tobacco Use Types Packs/Day Years [...] arthritis documented in this encounter Care Teams Vigoureux Printer Relationship Specialty Start Date End Date Charly Saxena [facility] [address] [place] [address] PCP - General Internal Medicine 05/25/13 07/16/17 Cheryl Calderon MD [facility] Adult Medicine [address] [place] [address] PCP - General Internal Medicine 07/17/17 documented as of this encounter
--- OUTSIDE RECORDS SUMMARY | 2024-07-28 12:11 | XMS_ITS | Encounter Summary ---
Author Organization [facility] Address [address] [place] [address] Phone Care Team Providers Care Rice Milling Supervisor Name Role Phone Cash Fernandes MD Unavailable [phone] Keren Poon [facility] Primary Care Provid er Chavo Jack MD Unavailable Willi Wells MD Unavailable Jose Thakur MD Unavailable Dana Rucker CAFE SITE ATTENDANT Unavailable Jonathan Alvarez MD Unavailable [phone] Anival Borja MD Unavailable Lyndsay Reynoso CAFE SITE ATTENDANT Unavailable Gutierrez Pittman MD Unavailable [phone] Encounter Details Date Type Department Care Team (Late st Contact Info) Description 05/01/2024 Ancillary Orders Virtual Department [address] [place] [address] Argelia Taylor, JULI 10 [place], [place] [phone] Lower abdominal pain (Primary Dx); Diarrhea, unspecified [...] st Contact Info) Description 06/06/2024 Procedure Pass [address] [address] 07/28/2024 1:00 PM EDT Home Care Visit [facility] [address] [place] [address] Trice De Santiago LPN [address] [place] [address] 07/30/2024 3:30 PM EDT Office Visit [facility] [address] [place] [address] [phone] Keren Poon, SALES DEPARTMENT MANAGER 170 [facility], 2nd Floor [place], [place] 08/04/2024 2:30 AM EDT [facility] [address] [place] [address] Orlando Mckeon RN [address] [place] [address] 08/11/2024 2:00 AM EDT Home [facility] [address] [place] [phone] Orlando Mckeon RN [address] [place] [address] 08/18/2024 1:30 AM EDT Home Care [facility] [address] [place] [phone] Orlando Mckeon RN [address] [place] [address] 08/25/2024 1:00 AM EDT Home Care Visit [facility] [address] [place] [phone] Orlando Mckeon RN [address] [place] [address] 09/01/2024 12:30 AM EDT Appointment [facility] [address] [place] [phone] Orlando Mckeon RN [address] [place] [address] 09/18/2024 2:30 PM EDT Office Visit [facility] Infectious Diseases [address] [place] [address] Dana Rucker, CAFE SITE ATTENDANT 15 [facility], [address] [place] [address] 11/26/2024 3:30 PM EDT Office Visit [facility] [address] [place] [address] [place] [address] Keren Poon, SALES DEPARTMENT MANAGER [address] [place] [address], 2nd [place] [address] 12/11/2024 2:00 PM EDT Appointment [facility] [address] [place] [address] Keren Poon, ORI 170 [facility], 2nd [place] [address] 01/07/2025 2:30 PM EDT Office Visit [facility] Pulmonary, Allergy and Critical Care Medicine [address] [place] [address] Jose Thakur MD [address] [place] [address] 06/03/2025 2:00 PM EST Office Visit [facility] [address] [place] [address] Keren Poon, ORI 170 [facility], 2nd [place] [address] documented as of this encounter Results * [...] evidence of obstruction or pneumoperitoneum. Argelia Taylor NP IMG XR ABDOMEN documented in this encounter [...] diff 04/10/2024 05/07/2024 06/06/2024 1:21 AM EST CoV-Risk 07/10/2024 07/10/2024 07/21/2024 1:21 AM EDT CDiff-Risk 07/10/2024 07/10/2024 07/10/2024 10:2 9 AM EDT C. diff 07/10/2024 07/10/2024 CDiff-Risk 07/10/2024 07/10/2024 07/10/2024 11:0 0 AM EDT Assessment Noted Time PHQ-9 Depression Total Score: 5 05/09/19 6:55 AM EST PHQ-2 Depression Total Score: 2 05/09/19 6:55 AM EST documented as of this encounter Care Teams Rice Milling Supervisor Relationship Specialty Start Date End Date Tylersotero Kerenrex Glaser CNP [address] [place] [address] PCP - General Family Medicine 01/31/23 Cash Fernandes MD [address] [place] [address] Gastroenterology 08/23/20 Chavo Jack MD 40 [place] [address] Insurance Assigned Provider 08/03/23 05/04/24 Willi Wells MD [address] [place] [address]_[place] [address] Rheumatology 02/04/24 Jose Thakur MD 30 [place] [address] Chronic Condition Nurse Pulmonary Disease 03/17/24 Dana Rucker FNP [address] [address] Nurse Practitioner Infectious Diseases 05/21/24 [place] [address] [place] [address], [address] [place] [address] Urology 05/14/23 Anival Borja MD [address] [place] [address], [address] [place] [address] Neurologist Neurology 01/04/23 Lyndsay Reynoso FNP [address] [place] [address] [address] [place] [address] [email or web address] Nurse Practitioner Pain Medicine 05/27/22 Gutierrez Pittman MD 40 [place] [address] Schedule Supervisor Cardiology 05/27/24 documented as of this encounter Additional Source Comments The information contained in this document represents components of the legal health record. It is not the complete legal health record.[facility]
--- OUTSIDE RECORDS SUMMARY | 2024-07-28 12:11 | XMS_ITS | Encounter Summary ---
Author Organization [facility] Address [address] [place] [address] Phone Care Team Providers Care Guide Domestic Tour Name Role Phone Cash Fernandes MD Unavailable [phone] Keren Poon [facility] Primary Care Provid er Chavo Jack MD Unavailable Willi Wells MD Unavailable Jose Thakur MD Unavailable Dana Rucker POLISHING MACHINE OPERATOR HELPER Unavailable [phone] Jonathan Alvarez MD Unavailable [phone] Anival Borja MD Unavailable Lyndsay Reynoso POLISHING MACHINE OPERATOR HELPER Unavailable Gutierrez Pittman MD Unavailable [phone] Encounter Details Date Type Department Care Team (Late st Contact Info) Description 04/10/2024 Procedure Pass [facility], Ct Scan - [address] [address] Social History Tobacco Use Types Packs/Day Years [...] st Contact Info) Description 06/06/2024 Procedure Pass [address] [address] 07/28/2024 1:00 PM EDT [facility] [address] [place] [address] Trice De Santiago LPN [address] [place] [address] 07/30/2024 3:30 PM EDT Office Visit [facility] [place] [facility] [address] [place] [address] [place] [address] Keren Poon, ORI 170 [facility], 2nd [place] [address] 08/04/2024 2:30 AM EDT [facility] [address] [place] [address] Orlando Mckeon, RENZO [address] [place] [address] 08/11/2024 2:00 AM EDT [facility] [address] [place] [phone] Orlando Mckeon RN [address] [place] [address] 08/18/2024 1:30 AM EDT Home Care Visit [facility] [address] [place], [place] [phone] Orlando Mckeon RN [address] [place] [address] 08/25/2024 1:00 AM EDT Home Care Visit [facility] [address] [place] [phone] Orlando Mckeon RN [address] [place] [address] 09/01/2024 12:30 AM EDT Appointment [facility] [address] [place] [address] Orlando Mckeon RN [address] [place] [address] 09/18/2024 2:30 PM EDT Office Visit [facility] Infectious Diseases 22 [place] [address] Dana Rucker, POLISHING MACHINE OPERATOR HELPER 15 [facility], [address] [place] [address] 11/26/2024 3:30 PM EDT Office Visit [facility] [address] [place] [address] [place] [id number] Keren Poon, BOROUGH COORDINATOR [address] [address] 12/11/2024 2:00 PM EDT Appointment [facility] [address] [place] [address] Keren Poon, ORI 170 [facility], 2nd [place] [address] [email or web address] 01/07/2025 2:30 PM EDT Office Visit [facility] Pulmonary, Allergy and Critical Care Medicine [address] [place] [address] Jose Thakur MD [address] [place] [address] 06/03/2025 2:00 PM EST Office Visit [facility] [place] [facility] [address] [place] [address] Dr Hurt [place] [address] Keren Poon, ORI 170 [facility], 2nd [place] [address] documented as of this encounter Visit Diagnoses [...] documented as of this encounter Care Teams Guide Domestic Tour Relationship Specialty Start Date End Date Keren Poon CNP [address] [place] [address] [email or web address] PCP - General Family Medicine 01/31/23 Cash Fernandes MD [address] [place] [address] Gastroenterology 08/23/20 Chavo Jack MD 40 [place] [address] [email or web address] Insurance Assigned Provider 08/03/23 05/04/24 Willi Wells MD [address] [place], [place] [address] [address] Rheumatology 02/04/24 Jose Thakur MD 30 [place] [address] Filter Changer Pulmonary Disease 03/17/24 Dana Rucker FNP 15 [facility], [address] [place] [address] [email or web address] Nurse Practitioner Infectious Diseases 05/21/24 Jonathan Alvarez MD [address] [place] [address], [address] [place] [address] [email or web address] Urology 05/14/23 Anival Borja MD [address] [place] [address] [address] [place] [address] [email or web address] Neurologist Neurology 01/04/23 Lyndsay Reynoso FNP 10 [facility] [address] [place] [address] [email or web address] Nurse Practitioner Pain Medicine 05/27/22 Gutierrez Pittman MD 40 [place] [address] Electro Optics Engineer Cardiology 05/27/24 documented as of this encounter Additional Source Comments The information contained in this document represents components of the legal health record. It is not the complete legal health record.[facility]
--- OUTSIDE RECORDS SUMMARY | 2024-07-28 12:11 | XMS_ITS | Encounter Summary ---
Author Organization [facility] Address [address] [place] [address] Phone Care Team Providers Care Senior Software Architect Name Role Phone Patrick Sanchez MD Unavailable [phone] Cheryl Calderon MD Primary Care Provider Keren Mabry MD Unavailable Louisa Hogan MD Unavailable Charly Saxena DO Unavailable [phone] Abhinav Muhammad MD Unavailable [phone] Cheryl Giraldo MELTER SUPERVISOR ELECTRIC ARC FURNACE Unavailable Wilfrido Steel MD Unavailable [phone] Sharon Martin PA-C Unavailable Ita Pineda CHANGE RELEASE MANAGER Primary Care Provider Cash Fernandes MD Unavailable Seven Menchaca MD Unavailable Chavo Jack MD Primary Care Provider [phone] Keren Poon [facility] Primary Care Provid er Chavo Jack MD Unavailable Willi Wells MD Unavailable Jose Thakur MD Unavailable Chaim Dana Jaimeley TELEPHONE ANSWERER Unavailable Jonathan Alvarez MD Unavailable [phone] Anival Borja MD Unavailable [place] Lyndsay Linda TELEPHONE ANSWERER Unavailable [phone] Gutierrez Pittman MD Unavailable Encounter Details Date Type Department Care Team (Late st Contact Info) Description 08/18/2020 Procedure Pass [facility], Ct Scan [address] [address] Social History Tobacco Use Types Packs/Day Years [...] st Contact Info) Description 06/06/2024 Procedure Pass [facility], [address] [address] 07/28/2024 1:00 PM EDT Home Care Visit [facility] [address] [place] [phone] Trice De Santiago LPN [address] [place] [address] 07/30/2024 3:30 PM EDT Office Visit [facility] [address] [place] [address] [place] [address] Keren Poon, CHANGE RELEASE MANAGER 170 [facility], 2nd [place] [address] [email or web address] 08/04/2024 2:30 AM EDT Home Care Visit [facility] [address] [place] [phone] Orlando Mckeon, RENZO [address] [place] [address] 08/11/2024 2:00 AM EDT Home Care Visit [facility] [address] [place] [phone] Orlando Mckeon RN [address] [place] [address] 08/18/2024 1:30 AM EDT Home Care Visit [facility] [address] [place] [phone] Orlando Mckeon RN [address] [place] [address] 08/25/2024 1:00 AM EDT Home Care Visit [facility] [address] [place] [phone] Orlando Mckeon, RENZO [address] [place] [address] 09/01/2024 12:30 AM EDT Appointment [facility] [address] [place] [phone] Orlando Mckeon, RENZO [address] [place] [address] 09/18/2024 2:30 PM EDT Office Visit [facility] Infectious Diseases 22 [place] [address] Dana Rucker, DIVYA [address] [address] 11/26/2024 3:30 PM EDT Office Visit [address] [place] [address] Keren Poon, ORI [address] [place] [address] 12/11/2024 2:00 PM EDT Appointment [address] [address] Keren Poon, ORI [address] [place] [address] 01/07/2025 2:30 PM EDT Office Visit [facility]monary, Allergy and Critical Care Medicine [address] [place] [address] Jose Thakur MD 30 [place] [address] 06/03/2025 2:00 PM EST Office Visit [address] [place] [address] Keren Poon, ORI [address] [place] [address] documented as of this encounter Visit Diagnoses [...] documented as of this encounter Care Teams Senior Software Architect Relationship Specialty Start Date End Date Cheryl Calderon MD [address] [place] [address] PCP - General Family Medicine 04/23/18 08/18/20 Ita Pineda CNP 40 [place] [address] [email or web address] PCP - General Internal Medicine 08/19/20 09/17/22 Chavo Jack MD 40 [place] [address] PCP - General Internal Medicine 09/18/22 01/30/23 Keren Poon CNP [address] [place] [address], 2nd [place] [address] PCP - General Family Medicine 01/31/23 Patrick Sanchez MD [address] [place] [address] Department of Orthopedic Surgery [place], [place] [phone] [email or web address] Historical LMR Provider 09/10/14 Keren Mabry MD [address] [place] [address] Historical LMR Provider 07/10/18 Louisa Hogan MD [address] [place] [address] [email or web address] Historical LMR Provider 07/10/1807/29 Charly Saxena DO [address] [address] Historical LMR Provider 07/10/18 Abhinav Muhammad MD 115 [facility] 104 [place] [address] [email or web address] Historical LMR Provider 07/10/18 08/22/20 Cheryl Giraldo NP [address] [place] [address] Historical LMR Provider 07/10/18 Wilfrido Steel MD [address] [place] [address] Historical LMR Provider 07/10/18 Sharon Martin PA-C 115 [facility] 104 [place] [address] [email or web address] Historical LMR Provider 07/10/18 08/22/20 Cash Fernandes MD 10 [place] [address] [email or web address] Gastroenterology 08/23/20 Seven Menchaca MD 40 [place] [address] [email or web address] Insurance Assigned Provider 08/04/22 08/03/23 Chavo Jack MD 40 [place] [address] [email or web address] Insurance Assigned Provider 08/03/23 05/04/24 Willi Wells MD [address] [place], [place] [address] [address] Rheumatology 02/04/24 Jose Thakur MD 30 [place] [address] [email or web address] Certified Diabetes Educator Pulmonary Disease 03/17/24 Dana Rucker FNP 15 [facility], 2nd [place] [address] [email or web address] Nurse Practitioner Infectious Diseases 05/21/24 Jonathan Alvarez MD [address] [place] [address], [address] [place] [address] [email or web address] Urology 05/14/23 Anival Borja MD [address] [place] [address], [address] [place] [address] [email or web address] Neurologist Neurology 01/04/23 Lyndsay Reynoso FNP [address] [place] [address] [email or web address] Nurse Practitioner Pain Medicine 05/27/22 Gutierrez Pittman MD [address] [place] [phone] Crime Analyst Cardiology 05/27/24 documented as of this encounter Additional Source Comments The information contained in this document represents components of the legal health record. It is not the complete legal health record.[facility]
--- OUTSIDE RECORDS SUMMARY | 2024-07-28 12:11 | XMS_ITS | Encounter Summary ---
Author Organization [facility] Address [address] [place] [address] Care Team Providers Care Auto Heater Mechanic Name Role Phone Cheryl Calderon MD Primary Care Provider [phone] Encounter Details Date Type Department Care Team (Late st Contact Info) Description 12/23/2018 Orders Only [facility] Hematology/Oncology 1 [facility] [address] [place] [phone] Liliana Calderon, JULI [address] [place] [address] Social History Tobacco Use Types Packs/Day Years [...] of this encounter Procedures * Due to [place] state law, this organization might not be sharing negative HIV tests. Procedure Name Priority Date/Time Associated Diagnosis Comments HEPATITIS B SURFACE ANTIGEN Routine 12/23/2018 11:32 AM EDT Rheumatoid arthritis involving multiple sites with positive rheumatoid factor HEPATITIS C AB WITH REFLEX TO RNA PCR, SERUM Routine 12/23/2018 11:32 AM EDT Rheumatoid arthritis involving multiple sites with positive rheumatoid factor HEPATITIS B CORE ANTIBODY, TOTAL, SERUM Routine 12/23/2018 11:32 AM EDT Rheumatoid arthritis involving multiple sites with positive rheumatoid factor CBC INCLUDES DIFFERENTIAL AND PLATELET COUNT Routine 12/23/2018 11:32 AM EDT Rheumatoid arthritis involving multiple sites with positive rheumatoid factor HEPATIC FUNCTION PANEL (ALT,AST,ALK PH,BILI'S,TP,ALB) Routine 12/23/2018 11:32 AM EDT Rheumatoid arthritis involving multiple sites with positive rheumatoid factor documented in this encounter Results * Due to [place] state law, this organization might not be [...] a test for HCV RNA (test code 88140) is suggested. For additional information please refer to http://education.[employer]/faq/MSH35v8 (This link is being provided for informational/ educational purposes only.) 12/23/2018 11:3 2 AM EDT 12/23/2018 11:23 PM EDT Narrative Resulting Agency Comment [id number] Liliana Calderon NP LABORATORY Final Result [facility] [address] [place] [address] * HEPATITIS B CORE ANTIBODY, TOTAL, SERUM (12/23/2018 11:32 AM EDT) Hepatitis B virus core Ab NON-REACTI VE NON-REACT MANOLO [facility] 12/23/2018 11:3 2 AM EDT 12/23/2018 11:23 PM EDT Narrative Resulting Agency Comment [id number] Liliana Nehemiasunder POULTRY INSEMINATOR LABORATORY Final Result Performing Organization Address [facility] Co de Phone Number [facility] [address] [place] [address] * HEPATITIS B SURFACE ANTIGEN (12/23/2018 11:32 AM EDT) Hepatitis B virus surface Ag NON-REACTI VE NON-REACT MANOLO [facility] 12/23/2018 11:3 2 AM EDT 12/23/2018 11:23 PM EDT Narrative Resulting Agency Comment [id number] Liliana Nehemiasunder POULTRY INSEMINATOR LABORATORY Final Result Performing Organization Address [facility] de Phone Number [facility] [address] [place] [address] * (ABNORMAL) HEPATIC FUNCTION PANEL (ALT,AST,ALK PH,BILI'S,TP,ALB) (12/23/2018 11:32 AM EDT) Pathologist [facility] Protein Total (Serum) 5.8(L) 6.1 - 8.1 [...] 11:23 PM EDT Narrative Resulting Agency Comment [id number] Liliana Nehemiasunder POULTRY INSEMINATOR LABORATORY Final Result Performing Organization Address [facility] Co de Phone Number [facility] [address] [place] [address] * CBC INCLUDES DIFFERENTIAL AND PLATELET COUNT [...] 11:23 PM EDT Narrative Resulting Agency Comment [id number] Liliana Calderon POULTRY INSEMINATOR LAB SAME DAY RESULT Final Result Performing Organization Address City/State/[facility] Co de Phone Number [facility] [address] [place] [address] documented in this encounter Visit Diagnoses Diagnosis Rheumatoid arthritis involving multiple sites with positive rheumatoid factor (HCC) documented in this encounter Care Teams Auto Heater Mechanic Relationship Specialty Start Date End Date Cheryl Calderon MD [facility] Adult Medicine [address] [place] [address] PCP - General Internal Medicine 07/17/17 documented as of this encounter
--- OUTSIDE RECORDS SUMMARY | 2024-07-28 12:11 | XMS_ITS | Encounter Summary ---
Author Organization [facility] Address [address] [place] [address] Care Team Providers Care Supervisor Boiler Repair Name Role Phone Cheryl Calderon MD Primary Care Provider [phone] Reason for Visit * Reason Comments Appointment Encounter Details Date Type Department Care Team ([facility] st Contact Info) Description 01/12/2019 Telephone [facility] Hematology/Oncology 1 [facility] [address] [place] [phone] Ita Anne RN [address] [place] [address] Appointment Social History Tobacco Use Types Packs/Day [...] Phone 01/19/19 3:10 PM Lyndsay Lopez MD [facility]. Ophthalmology [phone] 01/26/19 9:30 AM EAP CHEMO TX HEM ONC [facility] Hematology/Oncology [phone] 01/30/19 2:40 PM Liliana Calderon NP [facility] Hematology/Oncology [phone] Patient's is aware of the appointment. * Telephone Encounter - Liliana Calderon NP - 01/14/2019 5:28 PM EDT To schedule a follow-up visit for this patient within the week of Rituxan infusion. Thanks! * Telephone Encounter - Apple Bridges - 01/12/2019 4:44 PM EDT Liliana is not in the office on 01/26/19, she is in [place]. * Telephone Encounter - Ita Anne - [...] on filedocumented in this encounter Care Teams Supervisor Boiler Repair Relationship Specialty Start Date End Date Cheryl Calderon MD [facility] Medicine [address] [place] [address] PCP - General Internal Medicine 07/17/17 documented as of this encounter
--- OUTSIDE RECORDS SUMMARY | 2024-07-28 12:11 | XMS_ITS | Encounter Summary ---
Author Organization [facility] Address [address] [place] [address] Phone Care Team Providers Care Transportation Equipment Painter Name Role Phone Patrick Sanchez MD Unavailable [phone] Keren Mabry MD Unavailable Louisa Hogan MD Unavailable [phone] Charly Saxena DO Unavailable [phone] Abhinav Muhammad MD Unavailable [phone] Cheryl Giraldo NP Unavailable Wilfrido Steel MD Unavailable [phone] Sharon MartinC Unavailable Ita Pineda [facility] Primary Care Provider Cash Fernandes MD Unavailable [phone] Seven Menchaca MD Unavailable [phone] Chavo Jack MD Primary Care Provider Keren Poon [facility] Primary Care Provid er Chavo Jack MD Unavailable Willi Wells MD Unavailable Jose Thakur MD Unavailable Dana Rucker MANAGER MACHINE Unavailable [phone] Jonathan Alvarez MD Unavailable [phone] Anival Borja MD Unavailable Lyndsay Reynoso MANAGER MACHINE Unavailable Gutierrez Pittman MD Unavailable [phone] Encounter Details Date Type Department Care Team (Late st Contact Info) Description 08/19/2020 Procedure Pass [facility] Endoscopy Admitting Dept Virtual Department [address] [place] [address] Social History Tobacco Use Types Packs/Day Years [...] st Contact Info) Description 06/06/2024 Procedure Pass [address] [address] 07/28/2024 1:00 PM EDT Home Care Visit [facility] [address] [place] [phone] Trice De Santiago LPN [address] [place] [address] 07/30/2024 3:30 PM EDT Office Visit [facility] [address] [place] [address] [place] [address] Keren Poon, CONTINUOUS IMPROVEMENT COACH 170 [facility], [address] [place] [address] 08/04/2024 2:30 AM EDT Home Care Visit [facility] [address] [place] [phone] Orlando Mckeon, RENZO [address] [place] [address] 08/11/2024 2:00 AM EDT Home [facility] Visit [facility] [address] [place] [phone] Orlando Mckeon, RENZO [address] [place] [address] 08/18/2024 1:30 AM EDT Home Care Visit [facility] [address] [place] [phone] Orlando Mckeon RN [address] [place] [address] 08/25/2024 1:00 AM EDT Home Care Visit [facility] [address] [place] [address] Orlando Mckeon, RENZO [address] [place] [address] 09/01/2024 12:30 AM EDT Appointment [facility] [address] [place] [phone] Orlando Mckeon, RENZO [address] [place] [address] 09/18/2024 2:30 PM EDT Office Visit [facility] Infectious Diseases [address] [place] [address] Dana Rucker, MANAGER MACHINE 15 [facility], [address] [place] [address] 11/26/2024 3:30 PM EDT Office Visit [address] [place] [address] Keren Poon, ORI [address] [address] 12/11/2024 2:00 PM EDT Appointment [facility] 30 [place] [address] Keren Poon, ORI [address] [address] 01/07/2025 2:30 PM EDT Office Visit [facility] Pulmonary, Allergy and Critical Care Medicine [address] [place] [address] Jose Thakur MD [address] [place] [address] 06/03/2025 2:00 PM EST Office Visit [address] [place] [address] Keren Poon, ORI [address] [address] documented as of this encounter Visit Diagnoses [...] documented as of this encounter Care Teams Transportation Equipment Painter Relationship Specialty Start Date End Date Ita Pineda CNP [address] [place] [address] PCP - General Internal Medicine 08/19/20 09/17/22 Chavo Jack MD [address] [place] [address] PCP - General Internal Medicine 09/18/22 01/30/23 Keren Poon CNP [address] [place] [address], 2nd [place] [address] PCP - General Family Medicine 01/31/23 Patrick Sanchez MD [address] [place] [address] Department of [place] [address] [email or web address] Historical LMR Provider 09/10/14 Keren Mabry MD [address] [place] [address] Historical LMR Provider 07/10/18 Louisa Hogan MD [address] [place] [address] [email or web address] Historical LMR Provider 07/10/1807/29 Charly Saxena DO [address] [place] [address] Historical LMR Provider 07/10/18 Abhinav Muhammad MD [address] [place] [address] [email or web address] Historical LMR Provider 07/10/18 08/22/20 Cheryl Giraldo NP [address] [place] [address] Historical LMR Provider 07/10/18 Wilfrido Steel MD 12 [facility]. [address] [place] [address] Historical LMR Provider 07/10/18 Sharon Martin PA-C [address] [place] [address] [email or web address] Historical LMR Provider 07/10/18 08/22/20 Cash Fernandes MD [address] [place] [address] Gastroenterology 08/23/20 Seven Menchaca MD [address] [place] [address] Insurance Assigned Provider 08/04/22 08/03/23 Chavo Jack MD [address] [place] [address] Insurance Assigned Provider 08/03/23 05/04/24 Willi Wells MD [address] 304_[place] [address] Rheumatology 02/04/24 Jose Thakur MD 30 [place] [address] [email or web address] And Rescue Fire Fighter Crash Fire Pulmonary Disease 03/17/24 Dana Rucker FNP 15 [facility], 2nd [place] [address] [email or web address] Nurse Practitioner Infectious Diseases 05/21/24 Jonathan Alvarez MD [address] [place] [address], [address] [place] [address] [email or web address] Urology 05/14/23 Anival Borja MD [address] [place] [address], [address] [place] [address] Neurologist Neurology 01/04/23 Lyndsay Reynoso FNP [address] [place] [address] [email or web address] Nurse Practitioner Pain Medicine 05/27/22 Gutierrez Pittman MD [address] [place] [address] Credentialing Specialist Cardiology 05/27/24 documented as of this encounter Additional Source Comments The information contained in this document represents components of the legal health record. It is not the complete legal health record.[facility]
--- OUTSIDE RECORDS SUMMARY | 2024-07-28 12:11 | XMS_ITS | Encounter Summary ---
Author Organization [facility] Address [address] [place] [address] Phone Care Team Providers Care Phone Triage Specialist Name Role Phone Cash Fernandes MD Unavailable [phone] Keren Poon [facility] Primary Care Provid er Willi Wells MD Unavailable Jose Thakur MD Unavailable Dana Rucker SPEECH LANGUAGE PATHOLOGIST TRAVEL Unavailable Jonathan Alvarez MD Unavailable [phone] Anival Borja MD Unavailable Lyndsay Reynoso SPEECH LANGUAGE PATHOLOGIST TRAVEL Unavailable Gutierrez Pittman MD Unavailable [phone] Encounter Details Date Type Department Care Team (Late st Contact Info) Description 05/09/2024 Procedure Pass [facility], Ct Scan - [address] [address] Social History Tobacco Use Types Packs/Day Years [...] st Contact Info) Description 06/06/2024 Procedure Pass [address] [address] 07/28/2024 1:00 PM EDT [facility] [address] [place] [address] Trice De Santiago LPN [address] [place] [address] 07/30/2024 3:30 PM EDT Office Visit [facility] [address] [place] [address] [place] [address] Keren Poon, ENGINEERING INSPECTOR 170 [facility], 2nd [place] [address] 08/04/2024 2:30 AM EDT [facility] [address] [place] [address] Orlando Mckeon RN [address] [place] [address] 08/11/2024 2:00 AM EDT [facility] [address] [place] [address] Orlando Mckeon RN [address] [place] [address] 08/18/2024 1:30 AM EDT Home Care Visit [facility] [address] [place] [phone] Orlando Mckeon RN [address] [place] [address] 08/25/2024 1:00 AM EDT Home Care Visit [facility] [address] [place] [address] Orlando Mckeon RN [address] [place] [address] 09/01/2024 12:30 AM EDT [facility]ment [facility] [address] [place] [phone] Orlando Mckeon RN [address] [place] [address] 09/18/2024 2:30 PM EDT Office Visit [facility] Infectious Diseases [address] [place] [address] Dana Rucker, SPEECH LANGUAGE PATHOLOGIST TRAVEL [address] [address] 11/26/2024 3:30 PM EDT Office Visit [facility] [address] [place] [address] [place] [address] Keren Poon, ENGINEERING INSPECTOR [address] [address] 12/11/2024 2:00 PM EDT Appointment [facility] 30 [place] [address] Keren Poon, ENGINEERING INSPECTOR [address] [address] .[email or web address] 01/07/2025 2:30 PM EDT Office Visit [facility], All[facility] Critical [facility] Medicine [address] [place] [address] Jose Thakur MD [address] [place] [address] 06/03/2025 2:00 PM EST Office Visit [facility] [address] [place] [address] [place] [address] Keren Poon CNP [address] [place] [address] .[email or web address] documented as of this encounter Visit Diagnoses [...] documented as of this encounter Care Teams Phone Triage Specialist Relationship Specialty Start Date End Date Keren Poon CNP [address] [place] [address] PCP - General Family Medicine 01/31/23 Cash Fernandes MD [address] [place] [address] Gastroenterology 08/23/20 Willi Wells MD [address] [place] [address] 304_[place] [address] Rheumatology 02/04/24 Jose Thakur MD 30 [place] [address] Senior Care Assistant Pulmonary Disease 03/17/24 Dana Rucker FNP 15 [facility], 2nd [place] [address] [email or web address] Nurse Practitioner Infectious Diseases 05/21/24 Jonathan Alvarez MD [address] [place] [address], [address] [place] [address] Urology 05/14/23 Anival Borja MD [address] [place] [address], [address] [place] [address] Neurologist Neurology 01/04/23 Lyndsay Reynoso FNP [address] [place] [address] [email or web address] Nurse Practitioner Pain Medicine 05/27/22 Gutierrez Pittman MD 40 [place] [address] Fudge Candy Maker Cardiology 05/27/24 documented as of this encounter Additional Source Comments The information contained in this document represents components of the legal health record. It is not the complete legal health record.[facility]
--- OUTSIDE RECORDS SUMMARY | 2024-07-28 12:11 | XMS_ITS | Encounter Summary ---
Author Organization [facility] Address [address] [place] [address] Phone Care Team Providers Care Shed Boss Name Role Phone Cash Fernandes MD Unavailable [phone] Keren Poon [facility] Primary Care Provid er Chavo Jack MD Unavailable Willi Wells MD Unavailable Jose Thakur MD Unavailable [phone] Dana Rucker VEGETABLE HARVEST MACHINE OPERATOR Unavailable Jonathan Alvarez MD Unavailable [phone] Anival Borja MD Unavailable [phone] Lyndsay Reynoso VEGETABLE HARVEST MACHINE OPERATOR Unavailable Gutierrez Pittman MD Unavailable [phone] Encounter Details Date Type Department Care Team (Latest Contact Info) Description 04/30/2024 Transcribe Orders Virtual Department 30 [place] [address] Argelia Taylor, JULI 10 [place], [place] [id number] Lower abdominal pain (Primary Dx); Diarrhea, unspecified [...] st Contact Info) Description 06/06/2024 Procedure Pass [address] [address] 07/28/2024 1:00 PM EDT Home Care Visit [facility] [address] [place] [address] Tirce De Santiago LPN [address] [place] [address] 07/30/2024 3:30 PM EDT Office Visit [facility] [facility] [address] [place] [address] [place] [address] Keren Poon, GROUP SALES REPRESENTATIVE 170 [facility], 2nd Floor [place] 08/04/2024 2:30 AM EDT [facility] [address] [place] [address] Orlando Mckeon RN [address] [place] [address] 08/11/2024 2:00 AM EDT Home Care Visit [facility] [address] [place] [phone] Orlando Mckeon RN [address] [place] [address] 08/18/2024 1:30 AM EDT Home Care Visit [facility] [address] [place] [phone] Orlando Mckeon RN [address] [place] [address] 08/25/2024 1:00 AM EDT Home Care Visit [facility] [address] [place] [phone] Orlando Mckeon RN [address] [place] [address] 09/01/2024 12:30 AM EDT Appointment [facility] [address] [place] [phone] Orlando Mckeon, RENZO [address] [place] [address] 09/18/2024 2:30 PM EDT Office Visit [facility] Infectious Diseases [address] [place] [address] Dana Rucker, VEGETABLE HARVEST MACHINE OPERATOR 15 [facility], [address] [place] [address] 11/26/2024 3:30 PM EDT Office Visit [facility] [address] [place] [address] [place] [address] Keren Poon, GROUP SALES REPRESENTATIVE [address] [place] [address], 2nd [place] [address] 12/11/2024 2:00 PM EDT Appointment [facility] 30 [place] [address] Keren Poon, ORI 170 [facility], 2nd [place] [address] 01/07/2025 2:30 PM EDT Office Visit [facility] All[facility] Medicine [address] [place] [address] Jose Thakur MD [address] [place] [address] 06/03/2025 2:00 PM EST Office Visit [facility] [address] [place] [address] Keren Poon, ORI 170 [facility], 2nd [place] [address] documented as of this encounter Visit Diagnoses [...] documented as of this encounter Care Teams Shed Boss Relationship Specialty Start Date End Date Keren Poon CNP [address] [place] [address], [address] [place] [address] [email or web address] PCP - General Family Medicine 01/31/23 Cash Fernandes MD [address] [place] [address] [email or web address] Gastroenterology 08/23/20 Chavo Jack MD 40 [place] [address] [email or web address] Insurance Assigned Provider 08/03/23 05/04/24 Willi Wells MD [address] [place], [place] [address]Rheumatology [place] [address] Rheumatology 02/04/24 Jose Thakur MD 30 [place] [address] [email or web address] Generalist Pulmonary Disease 03/17/24 Dana Rucker FNP [address] [address] [email or web address] Nurse Practitioner Infectious Diseases 05/21/24 Jonathan Alvarez MD [address] [place] [address], [address] [place] [address] [email or web address] Urology 05/14/23 Anival Borja MD [address] [place] [address], [address] [place] [address] [email or web address] Neurologist Neurology 01/04/23 Lyndsay Reynoso FNP [address] [place] [address] [email or web address] Nurse Practitioner Pain Medicine 05/27/22 Gutierrez Pittman MD 40 [place] [address] Bank Guard Cardiology 05/27/24 documented as of this encounter Additional Source Comments The information contained in this document represents components of the legal health record. It is not the complete legal health record.[facility]
--- OUTSIDE RECORDS SUMMARY | 2024-07-28 12:11 | XMS_ITS | Encounter Summary ---
Author Organization [facility] Address [address] [place] [address] Phone Care Team Providers Care Mold Car Pusher Name Role Phone Cash Fernandes MD Unavailable [phone] Seven Menchaca MD Unavailable [phone] Chavo Jack MD Primary Care Provider [phone] Keren Poon [facility] Primary Care Provid er Chavo Jack MD Unavailable Willi Wells MD Unavailable Jose Thakur MD Unavailable [phone] Dana Rucker SEWING MACHINE ASSEMBLER Unavailable Jonathan Alvarez MD Unavailable [phone] Anival Borja MD Unavailable [phone] Lyndsay Reynoso SEWING MACHINE ASSEMBLER Unavailable [phone] Gutierrez Pittman MD Unavailable [phone] Encounter Details Date Type Department Care Team (Late st Contact Info) Description 10/11/2022 Transcribe Orders [facility] [address] [place] [address] Anival Borja MD 69 [facility], [address] [place] [address] Social History Tobacco Use Types Packs/Day Years [...] 06/06/2024 Procedure Pass [facility], [address] [address] 07/28/2024 1:00 PM EDT Home Care Visit [facility] [address] [place] [address] Trice De Santiago LPN [address] [place] [address] 07/30/2024 3:30 PM EDT Office Visit [facility] [address] [place] [address] [place] [address] Keren Poon, BEE PRODUCER 170 [facility], 2nd [place] [address] 08/04/2024 2:30 AM EDT [facility] [address] [place] [address] Orlando Mckeon RN [address] [place] [address] 08/11/2024 2:00 AM EDT [facility] [address] [place] [address] Orlando Mckeon RN [address] [place] [address] 08/18/2024 1:30 AM EDT [facility] [address] [place] [address] Orlando Mckeon RN 168 [place] [address] 08/25/2024 1:00 AM EDT Home Care Visit [facility] [address] [place] [address] Orlando Mckeon RN 168 [place] [address] 09/01/2024 12:30 AM EDT Appointment [facility] 30 [place] [address] Orlando Mckeon RN 168 [place] [address] 09/18/2024 2:30 PM EDT Office Visit [facility] Infectious Diseases [address] [place] [address] Dana Rucker, DIVYA 15 [facility], [address] [place] [address] 11/26/2024 3:30 PM EDT Office Visit [facility] [address] [place] [address] Keren Poon, BEE PRODUCER [address] [address] 12/11/2024 2:00 PM EDT Appointment [facility] [address] [place] [address] Keren Poon, BEE PRODUCER [address] [address] 01/07/2025 2:30 PM EDT Office Visit [facility], All[facility] Critical [facility] Medicine [address] [place] [address] Jose Thakur MD 30 [place] [address] 06/03/2025 2:00 PM EST Office Visit [facility] [address] [place] [address] Keren Poon, BEE PRODUCER 170 [facility], 2nd [place] [address] documented as of this encounter Visit Diagnoses [...] documented as of this encounter Care Teams Mold Car Pusher Relationship Specialty Start Date End Date Chavo Jack MD 40 [place] [address] PCP - General Internal Medicine 09/18/22 01/30/23 Cleve Keren ORI Glaser [address] [place] [address] [email or web address] PCP - General Family Medicine 01/31/23 Cash Fernandes MD 10 [place] [address] [email or web address] Gastroenterology 08/23/20 Seven Menchaca MD 40 [place] [address] [email or web address] Insurance Assigned Provider 08/04/22 08/03/23 Chavo Jack MD 40 [place] [address] [email or web address] Insurance Assigned Provider 08/03/23 05/04/24 Willi Wells MD [address] [place] [address] Rheumatology 02/04/24 Jose Thakur MD 30 [place] [address] [email or web address] Medical Assistant Float Pulmonary Disease 03/17/24 Dana Rucker FNP [address] [address] [email or web address] Nurse Practitioner Infectious Diseases 05/21/24 Jonathan Alvarez MD [address] [place] [address], 103 [place] [address] Urology 05/14/23 Anival Borja MD [address] [place] [address], [address] [place] [address] Neurologist Neurology 01/04/23 Lyndsay Reynoso FNP [address] [place] [address] [place] [address] [email or web address] Nurse Practitioner Pain Medicine 05/27/22 Gutierrez Pittman MD [address] [place] [phone] Rotary Dryer Operator Cardiology 05/27/24 documented as of this encounter Additional Source Comments The information contained in this document represents components of the legal health record. It is not the complete legal health record.[facility]
--- OUTSIDE RECORDS SUMMARY | 2024-07-28 12:11 | XMS_ITS | Encounter Summary ---
Author Organization [facility] Address [address] [place] [address] Care Team Providers Care Will Call Clerk Name Role Phone Cheryl Calderon MD Primary Care Provider [phone] Encounter Details Date Type Department Care Team (Late st Contact Info) Description 07/15/2018 Orders Only [facility]. Rheumatology [address] [place] [phone] Melanie Aguirre MD 5 [place] [address] Social History Tobacco Use Types Packs/Day Years [...] involving multiple sites with positive rheumatoid factor ERYTHROCYTE SEDIMENTATION RATE (ESR) Routine 07/15/2018 4:34 PM EDT Rheumatoid arthritis involving multiple sites with positive rheumatoid factor CBC INCLUDES DIFFERENTIAL AND PLATELET COUNT Routine 07/15/2018 4:34 PM EDT Rheumatoid arthritis involving multiple sites with positive rheumatoid factor COMPREHENSIVE METABOLIC PANEL WITH GFR Routine 07/15/2018 [...] 12:27 AM EDT Narrative Resulting Agency Comment [id number] Melanie Aguirre MD LABORATORY Final Result Performing Organization Address [facility] Co de Phone Number [facility] [address] [place] [address] * (ABNORMAL) ERYTHROCYTE SEDIMENTATION RATE (ESR), [place] (07/15/2018 4:34 PM EDT) Sedimentation Rate [place] (ESR) 50(H) < OR = 30 mm/h [facility] 07/15/2018 4:34 PM EDT 07/16/2018 12:27 AM EDT Narrative Resulting Agency Comment [id number] Melanie Aguirre MD LAB SAME DAY RESULT Final Result Performing Organization Address [facility] Co de Phone Number [facility] [address] [place] [address] * (ABNORMAL) COMPREHENSIVE METABOLIC PANEL WITH GFR [...] approximately 13% higher for people identified as -Danish. EGFR 95 > OR = 60 mL/min/1 [...] MD LABORATORY Final Result [facility] [address] [place] [address] * (ABNORMAL) CBC INCLUDES DIFFERENTIAL AND PLATELET [...] 12:27 AM EDT Narrative Resulting Agency Comment [id number] Melanie Aguirre MD LAB SAME DAY RESULT Final Result Performing Organization Address City/State/[facility] Co de Phone Number [facility] [address] [place] [address] documented in this encounter Visit Diagnoses Diagnosis Rheumatoid arthritis involving multiple sites with positive rheumatoid factor (HCC) documented in this encounter Care Teams Will Call Clerk Relationship Specialty Start Date End Date Cheryl Calderon MD [facility] Adult Medicine [address] [place] [address] PCP - General Internal Medicine 07/17/17 documented as of this encounter
--- OUTSIDE RECORDS SUMMARY | 2024-07-28 12:11 | XMS_ITS | Encounter Summary ---
Author Organization [facility] Address [address] [facility] [address] [address] [place] [address] Phone Care Team Providers Care Hand Packager Name Role Phone JessicaMattie oliveirasheryl Mccrackengh [facility] Primary Care Provider Cash Fernandes MD Unavailable [phone] Seven Menchaca MD Unavailable [phone] Chavo Jack MD Primary Care Provider [phone] Keren Poon [facility] Primary Care Provid er Chavo Jack MD Unavailable Willi Wells MD Unavailable Jose Thakur MD Unavailable Dana Rucker TIMBER FRAMER Unavailable [phone] Jonathan Alvarez MD Unavailable [phone] Anival Borja MD Unavailable [phone] Lyndsay Reynoso TIMBER FRAMER Unavailable Gutierrez Pittman MD Unavailable + [phone] Encounter Details Date Type Department Care Team (Late st Contact Info) Description 04/09/2022 [facility] - [facility] [address] [place] [address] Social History Tobacco Use Types Packs/Day Years [...] high school, GED, job training, learning the Greenlandic language, technical skills, or developing parenting skills)? [...] st Contact Info) Description 06/06/2024 Procedure Pass [facility] [address] [place] [address] 07/28/2024 1:00 PM EDT Home Care Visit [facility] [address] [place] [phone] Trice De Santiago LPN 168 [place] [address] [email or web address] 07/30/2024 3:30 PM EDT Office Visit [facility] [address] [place] [address] [place] [address] Keren Poon, ORI 170 [facility], 2nd [place] [address] 08/04/2024 2:30 AM EDT Home Care Visit [facility] [address] [place] [phone] Orlando Mckeon RN 168 [place] [address] [email or web address] 08/11/2024 2:00 AM EDT Home Care Visit [facility] [address] [place] [address] Orlando Mckeon RN [address] [place] [address] [email or web address] 08/18/2024 1:30 AM EDT Home Care Visit [facility] [address] [place] [phone] Orlando Mckeon RN 168 [place] [address] [email or web address] 08/25/2024 1:00 AM EDT Home Care Visit [facility] [address] [place] [phone] Orlando Mckeon RN 168 [place] [address] 09/01/2024 12:30 AM EDT Appointment [facility] [address] [place] [address] Orlando Mckeon RN 168 [place] [address] 09/18/2024 2:30 PM EDT Office Visit [facility] Infectious Diseases [address] [place] [address] Dana Rucker FNP [address] [address] 11/26/2024 3:30 PM EDT Office Visit [address] [place] [address] Keren Poon, ORI [address] [address] 12/11/2024 2:00 PM EDT Appointment [facility] 30 [place] [address] Keren Poon, ORI [address] [address] 01/07/2025 2:30 PM EDT Office Visit [facility], All[facility] Critical [facility] Medicine [address] [place] [address] Jose Thakur MD 30 [place] [address] 06/03/2025 2:00 PM EST Office Visit [address] [place] [address] Keren Poon CNP 170 [facility], 2nd Floor [place] [address] [email or web address] documented as of this encounter Visit Diagnoses [...] documented as of this encounter Care Teams Hand Packager Relationship Specialty Start Date End Date Ita Pineda CNP [address] [place] [address] [email or web address] PCP - General Internal Medicine 08/19/20 09/17/22 Chavo Jack MD 40 [place] [address] [email or web address] PCP - General Internal Medicine 09/18/22 01/30/23 Celve Kerenelsie Glaser CNP [address] [place] [address] [email or web address] PCP - General Family Medicine 01/31/23 Cash Fernandes MD 10 [place] [address] [email or web address] Gastroenterology 08/23/20 Seven Menchaca MD 40 [place] [address] [email or web address] Insurance Assigned Provider 08/04/22 08/03/23 Chavo Jack MD 40 [place] [address] [email or web address] Insurance Assigned Provider 08/03/23 05/04/24 Willi Wells MD [address] [place] [address] Rheumatology 02/04/24 Jose Thakur MD 30 [place] [address] [email or web address] Store Deli Manager Pulmonary Disease 03/17/24 Dana Rucker FNP 15 [facility], [address] [place] [address] [email or web address] Nurse Practitioner Infectious Diseases 05/21/24 Jonathan Alvarez MD [address] [place] [address], 103 [place] [address] Urology 05/14/23 Anival Borja MD [address] [place] [address], [address] [place] [address] Neurologist Neurology 01/04/23 Lyndsay Reynoso FNP [address] [place] [address] [email or web address] Nurse Practitioner Pain Medicine 05/27/22 Gutierrez Pittman MD [address] [place] [phone] Plane Tender Cardiology 05/27/24 documented as of this encounter Additional Source Comments The information contained in this document represents components of the legal health record. It is not the complete legal health record.[facility]
--- OUTSIDE RECORDS SUMMARY | 2024-07-28 12:11 | XMS_ITS | Encounter Summary ---
Author Organization [facility] Address [address] [place] [address] Phone Care Team Providers Care Pbx Manager Name Role Phone JessicaMattie oliveirasheryl Mccrackengh [facility] Primary Care Provider Cash Fernandes MD Unavailable [phone] Seven Menchaca MD Unavailable [phone] Chavo Jack MD Primary Care Provider [phone] Keren Poon [facility] Primary Care Provid er Chavo Jack MD Unavailable Willi Wlels MD Unavailable Jose Thakur MD Unavailable Dana Rucker DYE PENETRANT TESTING TECHNICIAN Unavailable Jonathan Alvarez MD Unavailable [phone] Anival Borja MD Unavailable [phone] Lyndsay Reynoso DYE PENETRANT TESTING TECHNICIAN Unavailable Gutierrez Pittman MD Unavailable + [phone] Encounter Details Date Type Department Care Team (Late st Contact Info) Description 02/10/2021 Procedure Pass [facility], Ct Scan - [facility] [address] [place] [address] Social History Tobacco Use Types Packs/Day Years [...] high school, GED, job training, learning the Albanian language, technical skills, or developing parenting skills)? [...] Description 06/06/2024 Procedure Pass [facility], [facility]- [address] [address] 07/28/2024 1:00 PM EDT Home Care Visit [facility] [address] [place] [phone] Trice De Santiago LPN [address] [place] [address] 07/30/2024 3:30 PM EDT Office Visit [facility] [address] [place] [address] [place] [address] Keren Poon CNP 170 [facility], 2nd [place] [address] 08/04/2024 2:30 AM EDT [facility] [address] [place] [phone] Orlando Mckeon RN [address] [place] [address] 08/11/2024 2:00 AM EDT [facility] [address] [place] [address] Orlando Mckeon RN [address] [place] [address] 08/18/2024 1:30 AM EDT [facility] [address] [place] [address] Orlando Mckeon RN [address] [place] [address] 08/25/2024 1:00 AM EDT [facility] [address] [place] [address] Orlando Mckeon RN [address] [place] [address] 09/01/2024 12:30 AM EDT Appointment [facility] [address] [place] [phone] Orlando Mckeon RN 168 [place] [address] 09/18/2024 2:30 PM EDT Office Visit [facility] Infectious Diseases 22 [place] [address] Dana Rucker FNP 15 [facility], 2nd [place] [address] 11/26/2024 3:30 PM EDT Office Visit [facility] [address] [place] [address] Keren Poon, BRUISE TRIMMER 170 [facility], [address] [place] [address] 12/11/2024 2:00 PM EDT Appointment [facility], [facility]- [address] [address] Keren Poon, BRUISE TRIMMER 170 [facility], [address] [place] [address] 01/07/2025 2:30 PM EDT Office Visit [facility], All[facility] Critical [facility] Medicine [address] [place] [address] Jose Thakur MD 30 [place] [address] 06/03/2025 2:00 PM EST Office Visit [facility] [address] [place] [address] Keren Poon CNP 170 [facility], 2nd Floor [place] [email or web address] documented as of this encounter Visit Diagnoses [...] documented as of this encounter Care Teams Pbx Manager Relationship Specialty Start Date End Date Ita Pineda CNP [address] [place] [address] [email or web address] PCP - General Internal Medicine 08/19/20 09/17/22 Chavo Jack MD [address] [place] [address] [email or web address] PCP - General Internal Medicine 09/18/22 01/30/23 Keren Poon CNP [address] [place] [address] 2[address] [place] [address] [email or web address] PCP - General Family Medicine 01/31/23 Cash Fernandes MD [address] [place] [address] [email or web address] Gastroenterology 08/23/20 Seven Menchaca MD 40 [place] [address] Insurance Assigned Provider 08/04/22 08/03/23 Chavo Jack MD 40 [place] [address] Insurance Assigned Provider 08/03/23 05/04/24 Willi Wells MD [address] [place] [address]_[place] [address] Rheumatology 02/04/24 Jose Thakur MD 30 [place] [address] Cabinet And Trim Installer Pulmonary Disease 03/17/24 Dana Rucker FNP 15 [facility], [address] [place] [address] Nurse Practitioner Infectious Diseases 05/21/24 Jonathan Alvarez MD [address] [place] [address], [address] [place] [address] Urology 05/14/23 Anival Borja MD [address] [place] [address], [address] [place] [address] [email or web address] Neurologist Neurology 01/04/23 Lyndsay Reynoso FNP [address] [place] [address] [place] [phone] [email or web address] Nurse Practitioner Pain Medicine 05/27/22 Gutirerez Pittman MD [address] [place] [phone] Metal Hardener Cardiology 05/27/24 documented as of this encounter Additional Source Comments The information contained in this document represents components of the legal health record. It is not the complete legal health record.[facility]
--- OUTSIDE RECORDS SUMMARY | 2024-07-28 12:11 | XMS_ITS | Encounter Summary ---
Author Organization [facility] Address [address] [facility] [place] [address] Phone Care Team Providers Care Wool Fleece Grader Name Role Phone JessicaMattie oliveirasheryl Mccrackengh [facility] Primary Care Provider Cash Fernandes MD Unavailable [phone] Seven Menchaca MD Unavailable Chavo Jack MD Primary Care Provider Keren Poon [facility] Primary Care Provid er Chavo Jack MD Unavailable Willi Wells MD Unavailable Jose Thakur MD Unavailable [phone] Dana Rucker TAX FORM PREPARER Unavailable [phone] Jonathan Alvarez MD Unavailable [phone] Anival Borja MD Unavailable [phone] Lyndsay Reynoso TAX FORM PREPARER Unavailable [phone] Gutierrez Pittman MD Unavailable + [phone] Encounter Details Date Type Department Care Team (Late st Contact Info) Description 02/10/2021 Procedure Pass [facility], [facility] [address] [place] [address] Social History Tobacco Use Types Packs/Day Years [...] high school, GED, job training, learning the Croatian language, technical skills, or developing parenting skills)? [...] st Contact Info) Description 06/06/2024 Procedure Pass [facility], [facility]- [address] [address] 07/28/2024 1:00 PM EDT Home Care Visit [facility] [address] [place] [phone] Trice De Santiago LPN [address] [place] [address] [email or web address] 07/30/2024 3:30 PM EDT Office Visit [facility] [address] [place] [address] [place] [address] Keren Poon, ORI [address] [facility], 2nd [place] [address] 08/04/2024 2:30 AM EDT Home Care Visit [facility] [address] [place] [phone] Orlando Mckeon RN [address] [place] [address] [email or web address] 08/11/2024 2:00 AM EDT [facility] [address] [place] [address] Orlando Mckeon RN [address] [place] [address] [email or web address] 08/18/2024 1:30 AM EDT [facility] [address] [place] [address] Orlando Mckeon RN [address] [place] [address] [email or web address] 08/25/2024 1:00 AM EDT [facility] [address] [place] [address] Orlando Mckeon RN [address] [place] [address] 09/01/2024 12:30 AM EDT Appointment [facility] [address] [place] [phone] Orlando Mckeon RN [address] [place] [address] 09/18/2024 2:30 PM EDT [facility] Visit [facility] [address] [place] [address] Dana Rucker FNP 15 [facility], [address] [place] [address] 11/26/2024 3:30 PM EDT Office Visit [facility] [address] [place] [address] Keren Poon, PRESS ASSISTANT AND FEEDER [address] [address] 12/11/2024 2:00 PM EDT Appointment [facility], [facility]- [address] [address] Keren Poon, PRESS ASSISTANT AND FEEDER [address] [address] 01/07/2025 2:30 PM EDT Office Visit [facility], Allergy and Critical Care Medicine [address] [place] [address] Jose Thakur MD 30 [place] [address] 06/03/2025 2:00 PM EST Office Visit [facility] [address] [place] [address] Keren Poon CNP 170 [facility], 2nd Floor [place] [email or web address] documented as of this encounter Visit Diagnoses [...] Time PHQ-9 Depression Total Score: 8 09/27/19 21 1:27 PM EDT PHQ-2 Depression Total Score: 3 09/27/19 1:27 PM EDT documented as of this encounter Care Teams Wool Fleece Grader Relationship Specialty Start Date End Date Ita Pineda CNP [address] [place] [address] [email or web address] PCP - General Internal Medicine 08/19/20 09/17/22 Chavo Jack MD [address] [place] [address] PCP - General Internal Medicine 09/18/22 01/30/23 Keren Poon CNP [address] [place] [address] 2[address] [place] [address] [email or web address] PCP - General Family Medicine 01/31/23 Cash Fernandes MD [address] [place] [address] Gastroenterology 08/23/20 Seven Menchaca MD 40 [place] [address] Insurance Assigned Provider 08/04/22 08/03/23 Chavo Jack MD 40 [place] [address] Insurance Assigned Provider 08/03/23 05/04/24 Willi Wells MD [address] [place], [place] [address] [address] Rheumatology 02/04/24 Jose Thakur MD 30 [place] [address] Head [facility] Pulmonary Disease 03/17/24 Dana Rucker FNP 15 [facility], [address] [place] [address] Nurse Practitioner Infectious Diseases 05/21/24 Jonathan Alvarez MD [address] [place] [address], [address] [place] [address] Urology 05/14/23 Anival Borja MD [address] [place] [address], [address] [place] [address] [email or web address] Neurologist Neurology 01/04/23 Lyndsay Reynoso FNP [address] [place] [address] [place] [address] [email or web address] Nurse Practitioner Pain Medicine 05/27/22 Gutierrez Pittman MD [address] [place] [phone] Hr Internship Cardiology 05/27/24 documented as of this encounter Additional Source Comments The information contained in this document represents components of the legal health record. It is not the complete legal health record.[facility]
--- OUTSIDE RECORDS SUMMARY | 2024-07-28 12:11 | XMS_ITS | Encounter Summary ---
Author Organization [facility] Address [address] [place] [address] Care Team Providers Care Institution Librarian Name Role Phone Cheryl Calderon MD Primary Care Provider [phone] Encounter Details Date Type Department Care Team (Late st Contact Info) Description 09/30/2018 Orders Only [facility]. Rheumatology [address] [place] [phone] Melanie Aguirre MD 5 [place] [address] Social History Tobacco Use Types Packs/Day Years [...] of this encounter Procedures * Due to [place] state law, this organization might not be sharing negative HIV tests. Procedure Name Priority Date/Time Associated Diagnosis Comments QUANTIFERON-TB GOLD Routine 09/30/2018 1 1:38 AM EDT Rheumatoid arthritis involving multiple sites with positive rheumatoid factor PASTORA IFA, W/ REFLEX TO TITER/PATTERN/COMPREHENSIVE AB PANEL Routine 09/30/2018 11:38 AM EDT Rheumatoid arthritis involving multiple sites with positive rheumatoid factor HEPATITIS B SURFACE ANTIGEN Routine 07/2018 11:38 AM EDT Rheumatoid arthritis involving multiple sites with positive rheumatoid factor HEPATITIS C AB WITH REFLEX TO RNA PCR, SERUM Routine 09/30/2018 11:38 AM EDT Rheumatoid arthritis involving multiple sites with positive rheumatoid factor SM/PLUG DRILL OPERATOR ANTIBODY Routine 09/30/2018 11:38 AM EDT Rheumatoid arthritis involving multiple sites with positive rheumatoid factor PLUG DRILL OPERATOR ANTIBODY Routine 09/30/2018 11:38 AM EDT Rheumatoid arthritis involving multiple sites with positive rheumatoid factor SJOGRENS SYNDROME ANTIBODIES (SSA AND SSB) Routine 09/30/2018 11:38 AM EDT Rheumatoid arthritis involving multiple sites with positive rheumatoid factor DNA (DS) ANTIBODY Routine 09/30/2018 11: 38 AM EDT Rheumatoid arthritis involving multiple sites with positive rheumatoid factor C-REACTIVE PROTEIN (CRP) - INFLAMMATION Routine 09/30/2018 11:38 AM EDT Rheumatoid arthritis involving multiple sites with positive rheumatoid factor ERYTHROCYTE SEDIMENTATION RATE (ESR) Routine 09/30/2018 11:38 AM EDT Rheumatoid arthritis involving multiple sites with positive rheumatoid factor CBC INCLUDES DIFFERENTIAL AND PLATELET COUNT Routine 09/30/2018 11:38 AM EDT Rheumatoid arthritis involving multiple sites with positive rheumatoid factor TSH, 3RD GENERATION Routine 09/30/2018 1 1:38 AM EDT Rheumatoid arthritis involving multiple sites with positive rheumatoid factor CYCLIC CITRULLINATEDPEPTIDE CCP AB IGG Routine 09/30/2018 11:38 AM EDT Rheumatoid arthritis involving multiple sites with positive rheumatoid factor COMPREHENSIVE METABOLIC PANEL WITH GFR Routine 09/30/2018 11:38 AM EDT Rheumatoid arthritis involving multiple sites with positive rheumatoid factor documented in this encounter Results * Due to [place] state law, this organization might not be sharing negative HIV tests. * TSH, 3RD GENERATION (09/30/2018 11:38 AM EDT) TSH 2.54 0.40 - 4.50 mIU/L [facility] 09/30/2018 11:3 8 AM EDT 09/30/2018 9:04 PM EDT Narrative Resulting Agency Comment [id number] us Melanie Aguirre MD LABORATORY Final Result Performing Organization Address City/[facility] Co de Phone Number [facility] [address] [place] [address] * (ABNORMAL) SJOGRENS SYNDROME ANTIBODIES (SSA AND SSB) (09/30/2018 11:38 AM EDT) Sjogrens syndrome-A extractable nuclear Ab 4.1 POS(A) <1.0 NEG AI [facility] Sjogrens syndrome-B extractable nuclear Ab <1.0 NEG <1.0 NEG AI [facility] 09/30/2018 11:3 8 AM EDT 09/30/2018 9:04 PM EDT Narrative Resulting Agency Comment [id number] us Melanie Aguirre MD LABORATORY Final Result Performing Organization Address [facility] Co de Phone Number [facility] [address] [place] [address] * (ABNORMAL) ERYTHROCYTE SEDIMENTATION RATE (ESR), WESTERGREN (09/30/2018 11:38 AM EDT) Sedimentation Rate Westegren (ESR) 45(H) < OR = 30 mm/h [facility] 09/30/2018 11:3 8 AM EDT 09/30/2018 9:04 PM EDT Narrative Resulting Agency Comment [id number] us Melanie Aguirre MD LAB SAME DAY RESULT Final Result Performing Organization Address [facility] Co de Phone Number [facility] [address] [place] [address] * PLUG DRILL OPERATOR ANTIBODY (09/30/2018 11:38 AM EDT) Ribonucleoprotein extractable nuclear Ab <1.0 NEG <1.0 NEG AI [facility] 09/30/2018 11:3 8 AM EDT 09/30/2018 9:04 PM EDT Narrative Resulting Agency Comment [id number] Melanie Aguirre MD LABORATORY Final Result Performing Organization Address City/[facility]/ZIP Co de Phone Number [facility] [address] [place] [address] * QUANTIFERON-TB GOLD (09/30/2018 11:38 AM EDT) [facility] Quantiferon(R)-TB Gold Plus NEGATIVE NEGATIVE [facility] [...] T-lymphocytes. For additional information, please refer to https://education.ESTmob.[employer]/faq/ABI047 (This link is being provided for informational/ educational purposes only.) 09/30/2018 11:3 8 AM EDT 09/30/2018 9:04 PM EDT Narrative Resulting Agency Comment [id number] Melanie Aguirre MD LABORATORY Final Result Performing Organization Address City/[facility]/ZIP Co de Phone Number [facility] [address] [place] [address] * HEPATITIS C AB WITH REFLEX TO [...] a test for HCV RNA (test code 49152) is suggested. For additional information please refer to http://education.There Corporation/faq/LMD59w5 (This link is being provided for informational/ educational purposes only.) 09/30/2018 11:3 8 AM EDT 09/30/2018 9:04 PM EDT Narrative Resulting Agency Comment [id number] us Melanie Aguirre MD LABORATORY Final Result Performing Organization Address [facility] Co de Phone Number [facility] [address] [place] [address] * HEPATITIS B SURFACE ANTIGEN (09/30/2018 11:38 AM EDT) Pathologist [facility] Hepatitis B virus surface Ag NON-REACTI VE NON-REACT MANOLO [facility] 09/30/2018 11:3 8 AM EDT 09/30/2018 9:04 PM EDT Narrative Resulting Agency Comment [id number] us Melanie Aguirre MD LABORATORY Final Result Performing Organization Address [facility] de Phone Number [facility] [address] [place] [address] * (ABNORMAL) C-REACTIVE PROTEIN (CRP) - INFLAMMATION (09/30/2018 11:38 AM EDT) Pathologist [facility] C reactive protein 10.9(H) <8.0 mg/L [facility] 09/30/2018 11:3 8 AM EDT 09/30/2018 9:04 PM EDT Narrative Resulting Agency Comment [id number] us Melanie Aguirre MD LABORATORY Final Result Performing Organization Address [facility] Co de Phone Number [facility] [address] [place] [address] * (ABNORMAL) COMPREHENSIVE METABOLIC PANEL WITH GFR [...] approximately 13% higher for people identified as -Australian. EGFR 77 > OR = 60 mL/min/1 [...] needs for GFR calculation. Resulting Agency Comment [id number] Melanie Aguirre MD LABORATORY Final Result Performing Organization Address [facility] de Phone Number [facility] [address] [place] [address] * (ABNORMAL) CYCLIC CITRULLINATEDPEPTIDE CCP AB IGG (09/30/2018 11:38 AM EDT) [facility] CCP Ab, IgG 45(H) UNITS [facility] Comment: Reference Range Negative: ?<20 Weak Positive: ? 20-39 Moderate Positive: ?? 40-59 Strong Positive: ? >59 09/30/2018 11:3 8 AM EDT 09/30/2018 9:04 PM EDT Narrative Resulting Agency Comment [id number] Melanie Aguirre MD LABORATORY Final Result Performing Organization Address [facility] de Phone Number [facility] [address] [place] [address] * (ABNORMAL) CBC INCLUDES DIFFERENTIAL AND PLATELET COUNT (09/30/2018 11:38 AM EDT) [facility] WBC 7.4 3.8 - 10.8 Thousand/u L [...] 9:04 PM EDT Narrative Resulting Agency Comment [id number] Melanie Aguirre MD LAB SAME DAY RESULT Final Result Performing Organization Address [facility] Co de Phone Number [facility] [address] [place] [address] * SM/PLUG DRILL OPERATOR ANTIBODY (09/30/2018 11:38 AM EDT) Arevalo extractable nuclear Ab+Ribonucleopr otein extractable nuclear Ab <1.0 NEG <1.0 NEG AI [facility] 09/30/2018 11:3 8 AM EDT 09/30/2018 9:04 PM EDT Narrative Resulting Agency Comment [id number] Melanie Aguirre MD LABORATORY Final Result Performing Organization Address [facility] de Phone Number [facility] [address] [place] [address] * DNA (DS) ANTIBODY (09/30/2018 11:38 AM EDT) Dna (DS) Antibody <1 IU/mL [facility] Comment: ? IU/mL ? Interpretation ? < or = 4 ?Negative ? 5-9 ? Indeterminate ? > or = 10 ?? Positive 09/30/2018 11:3 8 AM EDT 09/30/2018 9:04 PM EDT Narrative Resulting Agency Comment [id number] us Melanie Aguirre MD LABORATORY Final Result Performing Organization Address City/[facility] Co de Phone Number [facility] [address] [place] [address] * PASTORA IFA, W/ REFLEX TO TITER/PATTERN/COMPREHENSIVE [...] for interpretation of all antibodies in the [place], prevalence, and association with diseases at [email or web address] 09/30/2018 11:3 8 AM EDT 09/30/2018 9:04 PM EDT Narrative Resulting Agency Comment [id number] us Melanie Aguirre MD LABORATORY Final Result Performing Organization Address [facility] Co de Phone Number [facility] [address] [place] [address] documented in this encounter Visit Diagnoses Diagnosis Rheumatoid arthritis involving multiple sites with positive rheumatoid factor (HCC) documented in this encounter Care Teams Institution Librarian Relationship Specialty Start Date End Date Cheryl Calderon MD [facility] Adult Medicine [address] [place] [address] PCP - General Internal Medicine 07/17/17 documented as of this encounter
--- OUTSIDE RECORDS SUMMARY | 2024-07-28 12:11 | XMS_ITS | Encounter Summary ---
Author Organization [facility] Address [address] [place] [address] Phone Care Team Providers Care Washer And Capper Machine Operator Name Role Phone JessicaMattie oliveirasheryl Mccrackengh [facility] Primary Care Provider Cash Fernandes MD Unavailable [phone] Seven Menchaca MD Unavailable Chavo Jack MD Primary Care Provider Keren Poon [facility] Primary Care Provid er Chavo Jack MD Unavailable Willi Wells MD Unavailable Jose Thakur MD Unavailable [phone] Dana Rucker LAB CLERK Unavailable [phone] Jonathan Alvarez MD Unavailable [phone] Anival Borja MD Unavailable [phone] Lyndsay Reynoso LAB CLERK Unavailable Gutierrez Pittman MD Unavailable [phone] Reason for Referral * MRI/CAT Scan - Closed Specialty Diagnoses / Procedures Referred By Cayden montoya Referred To Contact Radiology Diagnoses Epigastric abdominal pain FH: pancreatic cancer Procedures CT Abdomen Only (No Pelvis) Argelia Taylor NP [address] [place] [address] Referral ID Status Reason Start Date Expiration Date Visits Re quested Visits Authorized [id number] Closed 04/09/2022 04/09/2023 1 1 Encounter Details Date Type Department Care Team (Latest Contact Info) Description 04/09/2022 Transcribe Orders Virtual Department [address] [place] [address] Argelia Taylor NP [address] [place] [address] Epigastric abdominal pain (Primary Dx); FH: pancreatic [...] high school, GED, job training, learning the Setswana language, technical skills, or developing parenting skills)? [...] st Contact Info) Description 06/06/2024 Procedure Pass [address] [address] 07/28/2024 1:00 PM EDT [facility] [address] [place] [address] Trice De Santiago LPN [address] [place] [address] 07/30/2024 3:30 PM EDT Office Visit [facility] [address] [place] [address] [place] [address] Keren Poon, CONE OPERATOR 170 [facility], 2nd [place] [address] 08/04/2024 2:30 AM EDT [facility] [address] [place] [address] Orlando Mckeon RN [address] [place] [address] 08/11/2024 2:00 AM EDT [facility] [address] [place] [phone] Orlando Mckeon, RENZO [address] [place] [address] 08/18/2024 1:30 AM EDT [facility] [address] [place] [phone] Orlando Mckeon RN [address] [place] [address] 08/25/2024 1:00 AM EDT [facility] [address] [place] [phone] Orlando Mckeon RN [address] [place] [address] 09/01/2024 12:30 AM EDT Appointment [facility] [address] [place] [phone] Orlando Mckeon RN [address] [place] [address] 09/18/2024 2:30 PM EDT Office Visit [facility] [address] [place] [address] Dana Rucker, LAB CLERK 15 [facility], [address] [place] [address] 11/26/2024 3:30 PM EDT Office Visit [facility] [address] [place] [address] [place] [address] Keren Poon, CONE OPERATOR 170 [facility], [address] [place] [address] 12/11/2024 2:00 PM EDT Appointment [address] [place] [address] JerseyKeren ro, CONE OPERATOR 170 [facility], [address]nd [place] [address] [email or web address] 01/07/2025 2:30 PM EDT Office Visit [facility], Allergy and Critical Care Medicine [address] [place] [address] Jose Thakur MD 30 [place] [address] 06/03/2025 2:00 PM EST Office Visit [facility] [address] [place] [address] [place] [address] Keren Poon, ORI 170 [facility], 2nd [place] [address] [email or web address] documented as of this encounter Results * [...] notify appropriate providers of potentially importantfindings. Argelia Taylor LOG WASHER IMG CT XSPECIALTY ORDERABLES documented in this [...] documented as of this encounter Care Teams Washer And Capper Machine Operator Relationship Specialty Start Date End Date Ita Pineda CNP [address] [place] [address] [email or web address] PCP - General Internal Medicine 08/19/20 09/17/22 Chavo Jack MD [address] [place] [address] [email or web address] PCP - General Internal Medicine 09/18/22 01/30/23 Keren Poon CNP [address] [place] [address], [address] [place] [address] [email or web address] PCP - General Family Medicine 01/31/23 Cash Fernandes MD [address] [place] [address] [email or web address] Gastroenterology 08/23/20 Seven Menchaca MD 40 [place] [address] [email or web address] Insurance Assigned Provider 08/04/22 08/03/23 Chavo Jack MD 40 [place] [address] [email or web address] Insurance Assigned Provider 08/03/23 05/04/24 Willi Wells MD [address] [place] [address]_[place] [address] Rheumatology 02/04/24 Jose Thakur MD [address] [place] [address] [email or web address] Shield Installer Pulmonary Disease 03/17/24 Dana Rucker FNP 15 [facility], [address] [place] [address] Nurse Practitioner Infectious Diseases 05/21/24 Jonathan Alvarez MD [address] [place] [address], [address] [place] [address] Urology 05/14/23 Anival Borja MD [address] [place] [address], [address] [place] [address] Neurologist Neurology 01/04/23 Lyndsay Reynoso FNP [address] [place] [address] [place] [address] [email or web address] Nurse Practitioner Pain Medicine 05/27/22 Gutierrez Pittman MD 40 [place] [phone] Page Technician Cardiology 05/27/24 documented as of this encounter Additional Source Comments The information contained in this document represents components of the legal health record. It is not the complete legal health record.[facility]
--- OUTSIDE RECORDS SUMMARY | 2024-07-28 12:11 | XMS_ITS | Encounter Summary ---
Author Organization [facility] Address [address] [place] [address] Phone Care Team Providers Care Kiln Packer Name Role Phone JessicaMattie oliveirasheryl Mccrackengh [facility] Primary Care Provider Cash Fernandes MD Unavailable [phone] Seven Menchaca MD Unavailable Chavo Jack MD Primary Care Provider Keren Poon [facility] Primary Care Provid er Chavo Jack MD Unavailable Willi Wells MD Unavailable Jose Thakur MD Unavailable Dana Rucker ARBORICULTURIST Unavailable Jonathan Alvarez MD Unavailable [phone] Anival Borja MD Unavailable [phone] Lyndsay Reynoso ARBORICULTURIST Unavailable [phone] Gutierrez Pittman MD Unavailable + [phone] Encounter Details Date Type Department Care Team (Late st Contact Info) Description 02/10/2021 Procedure Pass [facility], Ct Scan - [facility] [address] [place] [address] Social History Tobacco Use Types Packs/Day Years [...] high school, GED, job training, learning the Cameroonian language, technical skills, or developing parenting skills)? [...] st Contact Info) Description 06/06/2024 Procedure Pass [facility], [facility]- [address] [address] 07/28/2024 1:00 PM EDT Home Care Visit [facility] [address] [place] [phone] Trice De Santiago LPN [address] [place] [address] 07/30/2024 3:30 PM EDT Office Visit [facility] [address] [place] [address] [place] [address] Keren Poon CNP 170 [facility], 2nd [place] [address] 08/04/2024 2:30 AM EDT [facility] [address] [place] [phone] Orlando Mckeon RN [address] [place] [address] 08/11/2024 2:00 AM EDT [facility] [address] [place] [address] Orlando Mckeon RN [address] [place] [address] 08/18/2024 1:30 AM EDT [facility] [address] [place] [address] Orlando Mckeon RN [address] [place] [address] 08/25/2024 1:00 AM EDT [facility] [address] [place] [address] Orlando Mckeon RN [address] [place] [address] 09/01/2024 12:30 AM EDT Appointment [facility] [address] [place] [phone] Orlando Mkceon RN 168 [place] [address] 09/18/2024 2:30 PM EDT Office Visit [facility] Infectious Diseases [address] [place] [address] Dnaa Rucker FNP 15 [facility], 2nd [place] [address] 11/26/2024 3:30 PM EDT Office Visit [facility] [address] [place] [address] Keren Poon, WILDLIFE CONSERVATIONIST 170 [facility], [address] [place] [address] 12/11/2024 2:00 PM EDT Appointment [facility], [facility]- [address] [address] Keren Poon, WILDLIFE CONSERVATIONIST 170 [facility], [address] [place] [address] 01/07/2025 2:30 PM EDT Office Visit [facility] [address] [place] [address] Jose Thakur MD 30 [place] [address] 06/03/2025 2:00 PM EST Office Visit [facility] [address] [place] [address] Keren Poon CNP 170 [facility], 2nd Floor [place] [email or web address] documented as of this encounter Visit Diagnoses [...] documented as of this encounter Care Teams Kiln Packer Relationship Specialty Start Date End Date Ita Pineda CNP [address] [place] [address] [email or web address] PCP - General Internal Medicine 08/19/20 09/17/22 Chavo Jack MD [address] [place] [address] [email or web address] PCP - General Internal Medicine 09/18/22 01/30/23 Keren Poon CNP [address] [place] [address] 2[address] [place] [address] [email or web address] PCP - General Family Medicine 01/31/23 Cash Fernandes MD [address] [place] [address] [email or web address] Gastroenterology 08/23/20 Seven Menchaca MD 40 [place] [address] Insurance Assigned Provider 08/04/22 08/03/23 Chavo Jack MD [address] [place] [address] Insurance Assigned Provider 08/03/23 05/04/24 Willi Wells MD [address] [place] [address]_[place] [address] Rheumatology 02/04/24 Jose Thakur MD 30 [place] [address] Electronic Development Technician Pulmonary Disease 03/17/24 Dana Rucker FNP 15 [facility], [address] [place] [address] Nurse Practitioner Infectious Diseases 05/21/24 Jonathan Alvarez MD [address] [place] [address], [phone] Urology 05/14/23 Anival Broja MD [address] [place] [address], [address] [place] [address] [email or web address] Neurologist Neurology 01/04/23 Lyndsay Reynoso FNP [address] [place] [address] [place] [address] [email or web address] Nurse Practitioner Pain Medicine 05/27/22 Gutierrez Pittman MD [address] [place] [phone] Chemical Analyst Cardiology 05/27/24 documented as of this encounter Additional Source Comments The information contained in this document represents components of the legal health record. It is not the complete legal health record.[facility]
--- OUTSIDE RECORDS SUMMARY | 2024-07-28 12:11 | XMS_ITS | Encounter Summary ---
Author Organization [facility] Address [address] [place] [address] Care Team Providers Care Cement Finisher Apprentice Name Role Phone Cheryl Calderon MD Primary Care Provider [phone] Encounter Details Date Type Department Care Team (Late st Contact Info) Description 01/27/2019 Orders Only [facility] Hematology/Oncology 1 [facility] [address] [place] [phone] Liliana Calderon, JULI 5 [place] [address] Social History Tobacco Use Types Packs/Day Years [...] involving multiple sites with positive rheumatoid factor VENIPUNCTURE Routine 01/27/2019 3:23 PM EDT Iron deficiency FERRITIN Routine 01/27/2019 3:23 PM EDT Iron deficiency documented in this encounter Results * Due to [place] state law, this organization might not be sharing negative HIV tests. * POTASSIUM, SERUM (01/27/2019 3:23 PM EDT) Potassium 4.0 3.5 - 5.3 mmol/L [facility] 01/27/2019 3:23 PM EDT 01/28/2019 1:19 AM EDT Narrative Resulting Agency Comment [id number] Liliana Calderon NP LAB SAME DAY RESULT Final Result Performing Organization Address [facility] Co de Phone Number [facility] [address] [place] [address] * (ABNORMAL) FERRITIN (01/27/2019 3:23 PM EDT) Ferritin 687(H) 16 - 288 ng/mL [facility] 01/27/2019 3:23 PM EDT 01/28/2019 1:19 AM EDT Narrative Resulting Agency Comment [id number] Liliana Erazo TALENT MANAGEMENT MANAGER LABORATORY Final Result Performing Organization Address [facility] Co de Phone Number [facility] [address] [place] [address] * (ABNORMAL) IRON PROFILE (IRON/TIBC), SERUM (01/27/2019 3:23 PM EDT) Iron 14(L) 45 - 160 mcg/dL [facility] Iron binding capacity 223(L) 250 - 450 mcg/dL (calc) [facility] Iron saturation 6(L) 16 - 45 % (calc) [facility] 01/27/2019 3:23 PM EDT 01/28/2019 1:19 AM EDT Narrative Resulting Agency Comment [id number] Liliana Calderon TALENT MANAGEMENT MANAGER LABORATORY Final Result [facility] [address] [place] [address] documented in this encounter Visit Diagnoses Diagnosis Iron deficiency Iron deficiency anemia, unspecified Leukopenia, unspecified type Rheumatoid arthritis involving multiple sites with positive rheumatoid factor (HCC) documented in this encounter Care Teams Cement Finisher Apprentice Relationship Specialty Start Date End Date Cheryl Calderon MD [facility] [address] [place] [address] PCP - General Internal Medicine 07/17/17 documented as of this encounter
--- OUTSIDE RECORDS SUMMARY | 2024-07-28 12:11 | XMS_ITS | Encounter Summary ---
Author Organization [facility] Address [address] [place] [address] Phone Care Team Providers Care Automotive Manufacturer Name Role Phone Cash Fernandes MD Unavailable [phone] Seven Menchaca MD Unavailable Chavo Jack MD Primary Care Provider Keren Poon [facility] Primary Care Provid er Chavo Jack MD Unavailable Willi Wells MD Unavailable Jose Thakur MD Unavailable Dana Rucker PLATFORM POWER TECHNICIAN Unavailable Jonathan Alvarez MD Unavailable [phone] Ainval Borja MD Unavailable Lyndsay Reynoso PLATFORM POWER TECHNICIAN Unavailable Gutierrez Pittman MD Unavailable [phone] Reason for Referral * MRI/CAT Scan - Closed Specialty Diagnoses / Procedures Referred By Cayden montoya Referred To Contact Radiology Diagnoses Memory loss Procedures MRI Brain Anival Borja MD [address] [place] [address], [address] [place] [address] Email: [email or web address] Referral ID Status Reason Start Date Expiration Date Visits Re quested Visits Authorized [id number] Closed 10/04/2022 1 1 Encounter Details Date Type Department Care Team (Latest Contact Info) Description 10/04/2022 Transcribe Orders Virtual Department [address] [place] [address] Anival Borja MD [address] [place] [address], [address] [place], [place] [phone] [email or web address] Memory loss (Primary Dx) Social History Tobacco Use Types Packs/Day Years [...] st Contact Info) Description 06/06/2024 Procedure Pass [facility], [address] [address] 07/28/2024 1:00 PM EDT Home Care Visit [facility] [address] [place] [address] Trice De Santiago LPN [address] [place] [address] 07/30/2024 3:30 PM EDT Office Visit [facility] [address] [place] [address] [place] [address] Keren Poon, PHYSICIAN INTERVENTIONAL CARDIOLOGIST 170 [facility], 2nd Floor [place], [place] 08/04/2024 2:30 AM EDT Home Care Visit [facility] [address] [place] [address] Orlando Mckeon RN [address] [place] [address] 08/11/2024 2:00 AM EDT Home Care Visit [facility] [address] [place] [address] Orlando Mckeon, RENZO [address] [place] [address] 08/18/2024 1:30 AM EDT Home Care Visit [facility] [address] [place] [phone] Orlando Mckeon, RENZO [address] [place] [address] 08/25/2024 1:00 AM EDT Home Care Visit [facility] [address] [place] [phone] Orlando Mckeon RN [address] [place] [address] 09/01/2024 12:30 AM EDT Appointment [facility] [address] [place] [phone] Orlando Mckeon, RENZO [address] [place] [address] 09/18/2024 2:30 PM EDT Office Visit [facility] Infectious Diseases [address] [place] [address] Dana Rucker, DIVYA 15 [facility], [address] [place] [address] 11/26/2024 3:30 PM EDT Office Visit [facility] [address] [place] [address] [place] [address] Keren Poon, PHYSICIAN INTERVENTIONAL CARDIOLOGIST [address] [place] [address], [address] [place] [address] 12/11/2024 2:00 PM EDT Appointment [facility] [address] [place] [address] Keren Poon, ORI 170 [facility], [address] [place] [address] 01/07/2025 2:30 PM EDT Office Visit [facility] [address] [place] [address] Jose Thakur MD 30 [place] [address] 06/03/2025 2:00 PM EST Office Visit [facility] [address] [place] [address] Keren Poon, ORI 170 [facility], [address] [place] [address] documented as of this encounter Results * MRI BRAIN WITHOUT CONTRAST (11/10/2022 2:16 PM EDT) Anatomical Region Laterality Modality Head Magnetic Resonan ce 11/12/2022 9:16 PM EDT Impressions 11/12/2022 10:51 PM EDT Vessel branch which crosses along the inferior aspect of the left trigeminal nerve, approximately 5 mm distal to the root entry zone, without definitive nerve deformation, which may reflect either a venous or arterial branch. This is a common incidental finding that may be entirely unrelated to the reported symptoms. If the clinical symptoms are felt to have a high likelihood of reflecting trigeminal neuralgia, CTA head could be considered to better evaluate whether this is an arterial vessel. Otherwise, no intracranial cause for the reported symptoms identified. 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 Narrative 11/12/2022 10:51 PM EDT MRI BRAIN WITHOUT CONTRAST TECHNIQUE: MRI BRAIN WITHOUT CONTRAST Multi-sequence, multi-planar MRI of the brain was performed without intravenous contrast. COMPARISON: None FINDINGS: Brain Parenchyma: There is moderate scattered T2/FLAIR hyperintensity in the periventricular and deep white matter which is nonspecific and can be seen in the setting of chronic small vessel disease. Old lacunar infarcts involving the right thalamus on 6:15 and right jason and 6:10. No evidence of acute infarct, mass lesion, or recent hemorrhage. Punctate foci of old microhemorrhage in the jason. Ventricular System and Extra-Axial Spaces: Normal. No evidence of midline shift or hydrocephalus. Extracranial Structures: Arterial flow voids in the skull base are present. Bilateral lens replacements. Cerebellar pontine angle: No evidence of IAC mass. No evidence of mass along the visualized course of the trigeminal nerves. There is a vessel branch which crosses along the inferior aspect of the the left trigeminal nerve (10:32), approximately 5 mm distal to the root entry zone, which may reflect either a venous or arterial branch. Procedure Note Iván Lindsey MD - 11/12/2022 MRI BRAIN WITHOUT CONTRAST TECHNIQUE: MRI BRAIN WITHOUT CONTRAST Multi-sequence, multi-planar MRI of the brain was performed withoutintravenous contrast. COMPARISON: None FINDINGS: Brain Parenchyma: There is moderate scattered T2/FLAIR hyperintensity inthe periventricular and deep white matter which is nonspecific and can beseen in the setting of chronic small vessel disease. Old lacunar infarctsinvolving the right thalamus on 6:15 and right jason and 6:10. No evidenceof acute infarct, mass lesion, or recent hemorrhage. Punctate foci of oldmicrohemorrhage in the jason. Ventricular System and Extra-Axial Spaces: Normal. No evidence of midlineshift or hydrocephalus. Extracranial Structures: Arterial flow voids in the skull base arepresent. Bilateral lens replacements. Cerebellar pontine angle: No evidence of IAC mass. No evidence of massalong the visualized course of the trigeminal nerves. There is a vesselbranch which crosses along the inferior aspect of the the left trigeminalnerve (10:32), approximately 5 mm distal to the root entry zone, which mayreflect either a venous or arterial branch. IMPRESSION: Vessel branch which crosses along the inferior aspect of the lefttrigeminal nerve, approximately 5 mm distal to the root entry zone,without definitive nerve deformation, which may reflect either a venous orarterial branch. This is a common incidental finding that may be entirelyunrelated to the reported symptoms. If the clinical symptoms are felt tohave a high likelihood of reflecting trigeminal neuralgia, CTA head couldbe considered to better evaluate whether this is an arterial vessel. Otherwise, no intracranial cause for the reported symptoms identified. 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 Anival Borja MD IMG MR HEAD/NECK documented in this encounter Visit Diagnoses Diagnosis Memory loss- Primary Memory loss documented in this encounter Additional Health Concerns [...] documented as of this encounter Care Teams Automotive Manufacturer Relationship Specialty Start Date End Date Chavo Jack MD [address] [place] [phone] [email or web address] PCP - General Internal Medicine 09/18/22 01/30/23 Cleve Kerenelsie Glaser CNP [address] [place] [address] [email or web address] PCP - General Family Medicine 01/31/23 Cash Fernandes MD 10 [place] [address] [email or web address] Gastroenterology 08/23/20 Seevn Menchaca MD [address] [place] [address] [email or web address] Insurance Assigned Provider 08/04/22 08/03/23 Chavo Jack MD [address] [place] [address] [email or web address] Insurance Assigned Provider 08/03/23 05/04/24 Willi Wells MD [address] [place] [address] Rheumatology 02/04/24 Jose Thakur MD [address] [place] [address] [email or web address] Phosphorus Processing Supervisor Pulmonary Disease 03/17/24 Dana Rucker FNP 15 [facility], [address] [place] [address] [email or web address] Nurse Practitioner Infectious Diseases 05/21/24 Jonathan Alvarez MD [address] [place] [address], [address] [place] [address] Urology 05/14/23 Anival Borja MD [address] [place] [address], [address] [place] [address] Neurologist Neurology 01/04/23 Lyndsay Reynoso FNP [address] [place] [address] [place] [phone] [email or web address] Nurse Practitioner Pain Medicine 05/27/22 Gutierrez Pittman MD [address] [place] [phone] Dog Beautician Cardiology 05/27/24 documented as of this encounter Additional Source Comments The information contained in this document represents components of the legal health record. It is not the complete legal health record.[facility]
--- OUTSIDE RECORDS SUMMARY | 2024-07-28 12:12 | XMS_ITS | Encounter Summary ---
Author Organization [facility] Address [address] [place] [address] Care Team Providers Care Dry Cell Assembly Machine Tender Name Role Phone Cheryl Calderon MD Primary Care Provider [phone] Reason for Visit * Reason Comments E-prescribing Refill Request Encounter Details Date Type Department Care Team (Late st Contact Info) Description 02/01/2018 Refill [facility] Rheumatology [address] [place] [address] Abel Fierro MD [address] [place] [address] E-prescribing Refill Request Social History Tobacco Use [...] on filedocumented in this encounter Care Teams Dry Cell Assembly Machine Tender Relationship Specialty Start Date End Date Cheryl Calderon MD [facility] [address] [place] [address] PCP - General Internal Medicine 07/17/17 documented as of this encounter
--- OUTSIDE RECORDS SUMMARY | 2024-07-28 12:12 | XMS_ITS | Encounter Summary ---
Author Organization [facility] Address [address] [place] [address] Phone Care Team Providers Care Prepared Foods Supervisor Name Role Phone Cash Fernandes MD Unavailable [phone] Keren Poon [facility] Primary Care Provid er Willi Wells MD Unavailable Jose Thakur MD Unavailable Dana Rucker MANAGER OF PRODUCTION Unavailable Jonathan Alvarez MD Unavailable [phone] Anival Borja MD Unavailable Lyndsay Reynoso MANAGER OF PRODUCTION Unavailable [phone] Gutierrez Pittman MD Unavailable [phone] Reason for Visit * Reason Onset Date Comments Medication Prior Authorization 07/24/2024 V OWST Encounter Details Date Type Department Care Team (Late st Contact Info) Description 07/24/2024 Telephone StyleFeeder [facility] Infectious Diseases [address] [place] [address] Dana Rucker FNP 15 [facility], 2nd [place] [address] Medication Prior Authorization (VOWST) Social History Tobacco Use Types Packs/Day Years [...] as of this encounter Progress Notes * Belinda Cho [place] - 07/28/2024 11:59 AM EDT Fax all notes, labs and discharge summaries to [facility] [phone] * Dana Rucker FNP - 07/24/2024 3:05 PM EDT Pt needs to have paperwork (which I left on your desk, Belinda) faxed to [facility]. Please include my notes, the discharge summaries from pt's last 3 hospitalizations, the note from Dr. Fernandes from her last hospitalization, and all the C diff lab work and most recent CBC and CMP. Thank you. documented in this encounter Plan of Treatment Upcoming Encounters Date Type Department Care Team (Late st Contact Info) Description 06/06/2024 Procedure Pass [address] [address] 07/28/2024 1:00 PM EDT Home Care Visit [facility] [address] [place] [address] Trice De Santiago LPN [address] [place] [address] [email or web address] 07/30/2024 3:30 PM EDT Office Visit [facility] [address] [place] [address] [place] [address] Keren Poon, ORI [address] [facility], 2nd [place] [address] [email or web address] 08/04/2024 2:30 AM EDT Home Care Visit [facility] [address] [place] [phone] Orlando Mckeon RN [address] [place] [address] [email or web address] 08/11/2024 2:00 AM EDT Home Care Visit [facility] [address] [place] [phone] Orlando Mckeon RN [address] [place] [address] [email or web address] 08/18/2024 1:30 AM EDT Home Care Visit [facility] [address] [place] [phone] Orlando Mckeon RN [address] [place] [address] [email or web address] 08/25/2024 1:00 AM EDT Home Care Visit [facility] [address] [place] [address] Orlando Mckeon RN [address] [place] [address] [email or web address] 09/01/2024 12:30 AM EDT Appointment [facility] [address] [place] [address] Orlando Mckeon RN [address] [place] [address] 09/18/2024 2:30 PM EDT Office Visit [facility] Infectious Diseases 22 [place] [address] Dana Rucker FNP [address] [address] 11/26/2024 3:30 PM EDT Office Visit [address] [place] [address] Keren Poon, ORI [address] [place] [address] 12/11/2024 2:00 PM EDT Appointment [facility] [address] [place] [address] Keren Poon, ORI [address] [place] [address] 01/07/2025 2:30 PM EDT Office Visit [facility] [address] [place] [address] Jose Thakur MD 30 [place] [address] 06/03/2025 2:00 PM EST Office Visit [address] [place] [address] Keren Poon, ORI [address] [place] [address] documented as of this encounter Visit Diagnoses Not on filedocumented in this encounter Additional Health Concerns Infection Onset Date Last Indicated Resolved Time C. diff 07/10/2024 07/10/2024 Assessment Noted Time PHQ-9 Depression Total Score: 5 05/09/19 24 6:55 AM EST PHQ-2 Depression Total Score: 2 05/27/19 1:55 PM EST documented as of this encounter Care Teams Prepared Foods Supervisor Relationship Specialty Start Date End Date Keren PoonORI [address] [place] [address] PCP - General Family Medicine 01/31/23 Cash Fernandes MD 10 [place] [address] Gastroenterology 08/23/20 Willi Wells MD [address] [place], [place] [address]R[place] [address] Rheumatology 02/04/24 Jose Thakur MD 30 [place] [address] Grant Manager Pulmonary Disease 03/17/24 Dana Rucker FNP [address] [address] Nurse Practitioner Infectious Diseases 05/21/24 Jonathan Alvarez MD [address] [place] [address], [address] [place] [address] Urology 05/14/23 Anival Borja MD [address] [place] [address], [address] [place] [address] [email or web address] Neurologist Neurology 01/04/23 Lyndsay Reynoso FNP 10 [facility] [address] [place] [address] [email or web address] Nurse Practitioner Pain Medicine 05/27/22 Gutierrez Pittman MD [address] [place] [phone] Resource Paraprofessional Cardiology 05/27/24 documented as of this encounter Additional Source Comments The information contained in this document represents components of the legal health record. It is not the complete legal health record.[facility]
--- OUTSIDE RECORDS SUMMARY | 2024-07-28 12:12 | XMS_ITS | Encounter Summary ---
Author Organization [facility] Address [address] [place] [address] Care Team Providers Care Web Development Manager Name Role Phone Cheryl Calderon MD Primary Care Provider [phone] Reason for Visit * Reason Comments E-prescribing Refill Request Encounter Details Date Type Department Care Team (Late st Contact Info) Description 09/19/[address] [facility] Rheumatology [address] [place] [address] Abel Fierro MD 5 [place] [address] E-prescribing Refill Request Social History Tobacco Use [...] 1:00 PM Abel Fierro MD [facility] Rheumatology [phone] Pertinent lab results: Lab Results Component Value [...] ??? Elbow pain 06/03/2012 ??? Rheumatoid arthritis(714.0) ([facility]) 09/29/2010 Followed by rheumatology treated [...] AN EMPTY STOMACH 6 ??? Nystatin (NYSTOP) [id number] UNIT/GM Powder APPLY TO BUTTOCKS THREE TIMES [...] on filedocumented in this encounter Care Teams Web Development Manager Relationship Specialty Start Date End Date Cheryl Calderon MD [facility] Adult Medicine [address] [place] [address] PCP - General Internal Medicine 07/17/17 documented as of this encounter
--- OUTSIDE RECORDS SUMMARY | 2024-07-28 12:12 | XMS_ITS | Encounter Summary ---
Author Organization [facility] Address [address] [place] [address] Phone Care Team Providers Care Quoter Name Role Phone Patrick Sanchez MD Unavailable [phone] Cheryl Calderon MD Primary Care Provider Keren Mabry MD Unavailable [phone] Louisa Hogan MD Unavailable [phone] Charly Saxena DO Unavailable [phone] Abhinav Muhammad MD Unavailable [phone] Cheryl Giraldo ASSET PROTECTION AGENT Unavailable Wilfrido Steel MD Unavailable [phone] Sharon Martin PA-C Unavailable Ita Pineda CONVEYOR TECHNICIAN Primary Care Provider Cash Fernandes MD Unavailable [phone] Seven Menchaca MD Unavailable Chavo Jack MD Primary Care Provider [phone] Keren Poon [facility] Primary Care Provid er Chavo Jack MD Unavailable Willi Wells MD Unavailable Jose Thakur MD Unavailable Dana Rucker NURSE'S COMPANION Unavailable Jonathan Alvarez MD Unavailable [phone] Anival Borja MD Unavailable [email or web address] NURSE'S COMPANION Unavailable [phone] Gutierrez Pittman MD Unavailable [phone] Encounter Details Date Type Department Care Team (Late Contact Info) Description 04/30/2018 Procedure Pass [facility] Periop 6th floor [address] [place] [address] Social History Tobacco Use Types Packs/Day Years [...] (Late Contact Info) Description 06/06/2024 Procedure Pass [facility] [address] [place] [address] 07/28/2024 1:00 PM EDT Home Care Visit [facility] [address] [place] [phone] Trice De Santiago LPN [address] [place] [address] [email or web address] 07/30/2024 3:30 PM EDT Office Visit [facility] [address] [place] [address] [place] [address] Keren Ferreira, CONVEYOR TECHNICIAN 170 [facility], 2nd [place] [address] 08/04/2024 2:30 AM EDT Home Care Visit [facility] [address] [place] [phone] Orlando Mckeon RN [address] [place] [address] [email or web address] 08/11/2024 2:00 AM EDT Home Care Visit [facility] [address] [place] [phone] Orlando Mckeon RN [address] [place] [address] [email or web address] 08/18/2024 1:30 AM EDT Home Care Visit [facility] [address] [place] [phone] Orlando Mckeon RN [address] [place] [place] [address] 08/25/2024 1:00 AM EDT Home Care Visit [facility] [address] [place] [phone] Orlando Mckeon RN [address] [place] [place] [address] [email or web address] 09/01/2024 12:30 AM EDT Appointment [facility] [address] [place] [phone] Orlando Mckeon RN [address] [place] [address] [email or web address] 09/18/2024 2:30 PM EDT Office Visit [facility] Infectious Diseases 22 [place] [address] Dana Rucker, NURSE'S COMPANION [address] [address] 11/26/2024 3:30 PM EDT Office Visit [address] [place] [address] Keren Poon, ORI [address] [place] [address] 12/11/2024 2:00 PM EDT Appointment [facility] 30 [place] [address] Keren Poon, ORI [address] [place] [address] 01/07/2025 2:30 PM EDT Office Visit [facility] [address] [place] [address] Jose Thakur MD 30 [place] [address] 06/03/2025 2:00 PM EST Office Visit [address] [place] [address] Keren Poon, ORI [address] [place] [address] documented as of this encounter Visit Diagnoses [...] documented as of this encounter Care Teams Quoter Relationship Specialty Start Date End Date Cheryl Calderon MD [address] [place] [address] PCP - General Family Medicine 04/23/18 08/18/20 Ita Pineda CNP [address] [place] [address] [email or web address] PCP - General Internal Medicine 08/19/20 09/17/22 Chavo Jack MD 40 [place] [address] PCP - General Internal Medicine 09/18/22 01/30/23 Keren Poon CNP [address] [place] [address], 2nd [place] [address] PCP - General Family Medicine 01/31/23 Patrick Sanchez MD [address] [place] [address] Department [place] [address] [email or web address] Historical LMR Provider 09/10/14 Keren Mabry MD [address] [place] [address] Historical LMR Provider 07/10/18 [place] [address] [place] [address] [email or web address] Historical LMR Provider 07/10/1807/29 Charly Saxena DO [facility] [address] [address] Historical LMR Provider 07/10/18 Abhinav Muhammad MD [address] [place] [address] [email or web address] Historical LMR Provider 07/10/18 08/22/20 Cheryl Giraldo NP [address] [place] [address] Historical LMR Provider 07/10/18 Wilfrido Steel MD [address] [place] [address] Historical LMR Provider 07/10/18 Sharon Martin PA-C [address] [facility] 104 [place] [address] Historical LMR Provider 07/10/18 08/22/20 Cash Fernandes MD 10 [place] [address] [email or web address] Gastroenterology 08/23/20 Seven Menchaca MD [address] [place] [address] [email or web address] Insurance Assigned Provider 08/04/22 08/03/23 Chavo Jack MD 40 [place] [address] [email or web address] Insurance Assigned Provider 08/03/23 05/04/24 Willi Wells MD [address] [place], [place] [address]R[place]umatology [place] [address] Rheumatology 02/04/24 Jose Thakur MD [address] [place] [address] [email or web address] [employer] Pulmonary Disease 03/17/24 Dana Rucker FNP 15 [facility], 2nd [place] [address] [email or web address] Nurse Practitioner Infectious Diseases 05/21/24 Jonathan Alvarez MD [address] [place] [address], [address] [address] [email or web address] Urology 05/14/23 Anival Borja MD [address] [place] [address], [address] [address] [email or web address] Neurologist Neurology 01/04/23 Lyndsay Reynoso FNP [address] [place] [address] [place] [address] [email or web address] Nurse Practitioner Pain Medicine 05/27/22 Gutierrez Pittman MD [address] [place] [phone] Fleet Sales Associate Cardiology 05/27/24 documented as of this encounter Additional Source Comments The information contained in this document represents components of the legal health record. It is not the complete legal health record.[facility]
--- OUTSIDE RECORDS SUMMARY | 2024-07-28 12:12 | XMS_ITS | Encounter Summary ---
Author Organization [facility] Address [address] [place] [address] Care Team Providers Care Edge Polisher Name Role Phone Alberto Pacheco Primary Care Provider [phone] Charly Saxena Primary Care Provider [phone] Cheryl Calderon MD Primary Care Provider [phone] Encounter Details Date Type Department Care Team (Late st Contact Info) Description 03/31/2009 Orders Only [facility] Rheumatology [address] [place] [address] Abel Fierro MD 5 [place] [address] Social History Tobacco Use Types Packs/Day Years [...] RESULT Final Resul t Performing Organization Address City/State/[facility] Co de Phone Number [facility] [address] [place] [address] * (ABNORMAL) CBC 5 PART DIFF (03/31/2009) [...] RESULT Final Resul t Performing Organization Address City/[facility] Co de Phone Number [facility] [address] [place] [address] * ASPARTATE AMINOTRANSFERASE (AST), SERUM (03/31/2009) AST (SGOT) 20 10 - 35 U/L [facility] 03/31/2009 04/01/2009 12: 36 AM EST Narrative [facility] - 04/01/2009 5:29 AM EST Report Comments: RBC'S PRESENT, CHEMISTRY RESULT(S) MAY BE AFFECTED us Abel Fierro MD LAB SAME DAY RESULT Final Resul t Performing Organization Address City/[facility] Co de Phone Number [facility] [address] [place] [address] * ALANINE AMINOTRANSFERASE (ALT), SERUM (03/31/2009) ALT (SGPT) 21 6 - 40 U/L [facility] 03/31/2009 04/01/2009 12: 36 AM EST Narrative [facility] - 04/01/2009 5:29 AM EST Report Comments: RBC'S PRESENT, CHEMISTRY RESULT(S) MAY BE AFFECTED us Abel Fierro MD LAB SAME DAY RESULT Final Resul t [facility] [address] [place] [address] documented in this encounter Visit Diagnoses Diagnosis Rheumatoid arthritis(714.0) Rheumatoid arthritis documented in this encounter Care Teams Edge Polisher Relationship Specialty Start Date End Date Alberto Pacheco [address] [place] [address] PCP - General 07/19/08 05/24/13 Charly Saxena [facility] [address] [place] [address] PCP - General Internal Medicine 05/25/13 07/16/17 Cheryl Calderon MD [facility] [address] [place] [address] PCP - General Internal Medicine 07/17/17 documented as of this encounter
--- OUTSIDE RECORDS SUMMARY | 2024-07-28 12:12 | XMS_ITS | Encounter Summary ---
Author Organization [facility] Address [address] [place] [address] Care Team Providers Care Cylinder Inspector And Tester Name Role Phone Alberto Pacheco Primary Care Provider [phone] Unknown Pcp, Non [facility] Primary Care Provider Unava ilable Charly Saxena Primary Care Provider [phone] Charly Saxena Primary Care Provider [phone] Cheryl Calderon MD Primary Care Provider [phone] Encounter Details Date Type Department Care Team (Late st Contact Info) Description 02/03/2007 Orders Only [facility] Rheumatology [address] [place] [address] Nikkie Moss, VENEER JOINER [address] [place], [place] [address] Social History Tobacco Use Types Packs/Day Years [...] of this encounter Results * Due to [place] state law, this organization might not be sharing negative HIV tests. * ASPARTATE AMINOTRANSFERASE (AST), SERUM (02/04/2007) AST (SGOT) 16 10 - 35 U/L [facility] (CLIA# [id number]) 02/04/2007 02/04/2007 7:3 1 PM EDT us Abel Fierro MD LAB SAME DAY RESULT Final Resul t [facility] (CLIA# [id number]) [address] [place] [address] * (ABNORMAL) CBC 5 PART DIFF (02/04/2007) WHITE BLOOD COUNT 9.7 3.8 - 10.8 THOUS/UL [facility] (CLIA# [id number]) RBC 5.08 3.80 - 5.10 MIL/UL [facility] (CLIA# [id number]) Hemoglobin 15.4 11.7 - 15.5 G/DL [facility] (CLIA# [id number]) HCT (HEMATOCRIT) 45.3(H) 35.0 - 45.0 % [facility] (CLIA# [id number]) MCV 89.2 80.0 - 100.0 FL [facility] (CLIA# [id number]) MCH 30.4 27.0 - 33.0 PG [facility] (CLIA# [id number]) MCHC 34.1 32.0 - 36.0 G/DL [facility] (CLIA# [id number]) BAND % 0 0 - 5 % [facility] (CLIA# [id number]) NEUTROPHIL % 84(H) 48 - 75 % [facility] (CLIA# [id number]) LYMPHOCYTE % 10(L) 17 - 40 % [facility] (CLIA# [id number]) MONOCYTE % 6 0 - 14 % [facility] (CLIA# [id number]) EOSINOPHIL % 0 0 - 5 % [facility] (CLIA# [id number]) BASOPHIL % 0 0 - 3 % [facility] (CLIA# [id number]) ATYPICAL LYMPHOCYTE % 0 0 - 5 % [facility] (CLIA# [id number]) PLATELETS 392 140 - 400 THOUS/UL [facility] (CLIA# [id number]) BANDS # 0 0 - 750 CELLS/MCL [facility] (CLIA# [id number]) NEUTROPHILS # 8148(H) 1500 - 7800 CELLS/MCL [facility] (CLIA# [id number]) LYMPHOCYTES # 970 850 - 3900 CELLS/MCL [facility] (CLIA# [id number]) MONOCYTES # 582 200 - 950 CELLS/MCL [facility] (CLIA# [id number]) EOSINOPHILS # 0(L) 15 - 550 CELLS/MCL [facility] (CLIA# [id number]) BASOPHILS # 0 0 - 200 CELLS/MCL [facility] (CLIA# [id number]) ATYPICAL LYMPHOCYTES # 0 0 - 200 /UL [facility] (CLIA# [id number]) RDW 14.6 11.0 - 15.0 % [facility] (CLIA# [id number]) MPV 7.6 7.5 - 11.5 FL [facility] (CLIA# [id number]) 02/04/2007 02/04/2007 7:3 1 PM EDT us Abel Fierro MD LAB SAME DAY RESULT Final Resul t [facility] (CLIA# [id number]) [address] [place] [address] documented in this encounter Visit Diagnoses Diagnosis RHEUMATOID ARTHRITIS- Primary Rheumatoid arthritis documented in this encounter Care Teams Cylinder Inspector And Tester Relationship Specialty Start Date End Date Alberto Pacheco [address] [place] [phone] PCP - General 07/19/08 05/24/13 Unknown Pcp, Non Rmg PCP - General 06/30/08 07/18/08 Charly Saxena [address] [address] PCP - General 01/18/06 06/29/08 Charly Saxena [address] [place] [address] PCP - General Internal Medicine 05/25/13 07/16/17 Cheryl Calderon MD [facility] Adult Medicine [address] [place] [address] PCP - General Internal Medicine 07/17/17 documented as of this encounter
--- OUTSIDE RECORDS SUMMARY | 2024-07-28 12:12 | XMS_ITS | Encounter Summary ---
Author Organization [facility] Address [address] [place] [address] Care Team Providers Care Furnace Mason Name Role Phone Alberto Pacheco Primary Care Provider [phone] Unknown Pcp, Non Rmg Primary Care Provider Unava ilCharly Antoine Primary Care Provider [phone] Charly Saxena Primary Care Provider Cheryl Calderon MD Primary Care Provider [phone] Encounter Details Date Type Department Care Team (Late st Contact Info) Description 11/15/2006 Orders Only [facility] Rheumatology [address] [place] [address] Abel Fierro MD [address] [place] [address] Social History Tobacco Use Types Packs/Day Years [...] arthritis documented in this encounter Care Teams Furnace Mason Relationship Specialty Start Date End Date Alberto Pacheco [address] [place] [address] PCP - General 07/19/08 05/24/13 Unknown Pcp, Non Rmg PCP - General 06/30/08 07/18/08 Charly Saxena [facility] [address] [place] [address] PCP - General 01/18/06 06/29/08 Charly Saxena [facility] [address] [place] [address] PCP - General Internal Medicine 05/25/13 07/16/17 Cheryl Calderon MD [facility] Adult Medicine [address] [place] [address] PCP - General Internal Medicine 07/17/17 documented as of this encounter
--- OUTSIDE RECORDS SUMMARY | 2024-07-28 12:12 | XMS_ITS | Encounter Summary ---
Author Organization [facility] Address [address] [place] [address] Care Team Providers Care Cover Stitch Machine Operator Name Role Phone Charly Saxena Primary Care Provider [phone] Cheryl Calderon MD Primary Care Provider [phone] Encounter Details Date Type Department Care Team (Late st Contact Info) Description 05/24/2016 Orders Only [facility] Rheumatology [address] [place] [address] Abel Fierro MD [address] [place] [address] Social History Tobacco Use Types Packs/Day Years [...] approximately 13% higher for people identified as -Liberian. GFR 66 > OR = 60 mL/min/1. [...] needs for GFR calculation. Resulting Agency Comment [id number] us Abel Fierro MD LAB SAME DAY RESULT Final Resul t [facility] [address] [place] [address] * ALANINE AMINOTRANSFERASE (ALT), SERUM (05/24/2016 10:20 AM EST) ALT (SGPT) 27 6 - 29 U/L [facility] 05/24/2016 10:2 0 AM EST 05/24/2016 5:04 PM EST Narrative Resulting Agency Comment [id number] us Abel Fierro MD LAB SAME DAY RESULT Final Resul t Performing Organization Address City/[facility]/ZIP Co de Phone Number [facility] [address] [place] [address] * ASPARTATE AMINOTRANSFERASE (AST), SERUM (05/24/2016 10:20 AM EST) AST (SGOT) 23 10 - 35 U/L [facility] 05/24/2016 10:2 0 AM EST 05/24/2016 5:04 PM EST Narrative Resulting Agency Comment [id number] us Abel Fierro MD LAB SAME DAY RESULT Final Resul t Performing Organization Address [facility] de Phone Number [facility] [address] [place] [address] * (ABNORMAL) CBC INCLUDES DIFFERENTIAL AND PLATELET [...] 5:04 PM EST Narrative Resulting Agency Comment [id number] us Abel Fierro MD LAB SAME DAY RESULT Final Resul t Performing Organization Address City/State/[facility] Co de Phone Number [facility] [address] [place] [address] documented in this encounter Visit Diagnoses Diagnosis Rheumatoid arthritis involving multiple sites with positive rheumatoid factor (HCC) [M05.79] documented in this encounter Care Teams Cover Stitch Machine Operator Relationship Specialty Start Date End Date Charly Saxena [facility] [address] [place] [address] PCP - General Internal Medicine 05/25/13 07/16/17 Cheryl Calderon MD [facility] Adult Medicine [address] [place] [address] PCP - General Internal Medicine 07/17/17 documented as of this encounter
--- OUTSIDE RECORDS SUMMARY | 2024-07-28 12:12 | XMS_ITS | Encounter Summary ---
Author Organization [facility] Address [address] [place] [address] Phone Care Team Providers Care Provider Relations Rep Name Role Phone JessicaMattie oliveirasheryl Mccrackengh [facility] Primary Care Provider Cash Fernandes MD Unavailable [phone] Seven Menchaca MD Unavailable Chavo Jack MD Primary Care Provider Keren Poon [facility] Primary Care Provid er Chavo Jack MD Unavailable Willi Wells MD Unavailable Jose Thakur MD Unavailable Dana Rucker HOUSE PLAYER Unavailable Jonathan Alvarez MD Unavailable [phone] Anival Borja MD Unavailable [phone] Lyndsay Reynoso HOUSE PLAYER Unavailable Gutierrez Pittman MD Unavailable [phone] Encounter Details Date Type Department Care Team (Late st Contact Info) Description 07/10/2021 Procedure Pass [facility], [facility] [address] [place] [address] Social History Tobacco Use Types Packs/Day Years [...] high school, GED, job training, learning the Dominican language, technical skills, or developing parenting skills)? [...] Info) Description 06/06/2024 Procedure Pass [facility], [address] [address] 07/28/2024 1:00 PM EDT Home Care Visit [facility] [address] [place] [phone] Trice De Santiago LPN [address] [place] [address] [email or web address] 07/30/2024 3:30 PM EDT Office Visit [facility] [address] [place] [address] [place] [address] Keren Poon, ORI [address] [facility], 2nd [place] [address] 08/04/2024 2:30 AM EDT Home Care Visit [facility] [address] [place] [phone] [place] Mckeon RN [address] [place] [address] [email or web address] 08/11/2024 2:00 AM EDT Home Care Visit [facility] [address] [place] [address] [place] Mckeon RN [address] [place] [address] [email or web address] 08/18/2024 1:30 AM EDT Home Care Visit [facility] [address] [place] [address] [place] Mckeon RN [address] [place] [address] [email or web address] 08/25/2024 1:00 AM EDT Home Care Visit [facility] [address] [place] [phone] [place] Mckeon RN [address] [place] [address] 09/01/2024 12:30 AM EDT Appointment [facility] [address] [place] [address] [place] Mckeon RN [address] [place] [address] 09/18/2024 2:30 PM EDT Office Visit [facility] Infectious Diseases [address] [place] [address] Dana Rucker FNP [address] [address] 11/26/2024 3:30 PM EDT Office Visit [address] [place] [address] Keren Poon, ORI [address] [address] 12/11/2024 2:00 PM EDT Appointment [facility] [address] [place] [address] Keren Poon, NEEDLE FELT MAKING MACHINE OPERATOR [address] [place] [address] 01/07/2025 2:30 PM EDT Office Visit [facility] [address] [place] [address] Jose Thakur MD [address] [place] [address] 06/03/2025 2:00 PM EST Office Visit [address] [place] [address] Keren Poon, ORI [address] [facility], 2nd Floor [place] [address] [email or web address] documented as of this encounter Visit Diagnoses [...] documented as of this encounter Care Teams Provider Relations Rep Relationship Specialty Start Date End Date Ita Pineda CNP [address] [place] [address] [email or web address] PCP - General Internal Medicine 08/19/20 09/17/22 Chavo Jack MD [address] [place] [address] PCP - General Internal Medicine 09/18/22 01/30/23 Keren Poon CNP [address] [place] [address] [email or web address] PCP - General Family Medicine 01/31/23 Cash Fernandes MD [address] [place] [address] Gastroenterology 08/23/20 Seven Menchaca MD [address] [place] [address] Insurance Assigned Provider 08/04/22 08/03/23 Chavo Jack MD [address] [place] [address] Insurance Assigned Provider 08/03/23 05/04/24 Willi Wells MD [address] [place], [place] [address] [address] Rheumatology 02/04/24 Jose Thakur MD [address] [place] [address] Booster Pump Operator Pulmonary Disease 03/17/24 Dana Rucker FNP [address] [address] Nurse Practitioner Infectious Diseases 05/21/24 Jonathan Alvarez MD [address] [place] [address], [address] [place] [address] [email or web address] Urology 05/14/23 Anival Borja MD [address] [place] [address], [address] [place] [address] [email or web address] Neurologist Neurology 01/04/23 Lyndsay Reynoso FNP [address] [place] [address] [place] [address] [email or web address] Nurse Practitioner Pain Medicine 05/27/22 Gutierrez Pittman MD [address] [place] [address] Payroll Processor Cardiology 05/27/24 documented as of this encounter Additional Source Comments The information contained in this document represents components of the legal health record. It is not the complete legal health record.[facility]
--- OUTSIDE RECORDS SUMMARY | 2024-07-28 12:12 | XMS_ITS | Encounter Summary ---
Author Organization [facility] Address [address] [place] [address] Phone Care Team Providers Care Burial Vault Setter Name Role Phone Cash Fernandes MD Unavailable [phone] Keren Poon [facility] Primary Care Provid er Willi Wells MD Unavailable Jose Thakur MD Unavailable [phone] Dana Rucker CALCULATION CLERK Unavailable [phone] Jonathan Alvarez MD Unavailable [phone] Anival Borja MD Unavailable Lyndsay Reynoso CALCULATION CLERK Unavailable Gutierrez Pittman MD Unavailable [phone] Reason for Visit * Reason Comments Follow-up C.diff Encounter Details Date Type Department Care Team (Late st Contact Info) Description 07/24/2024 2:30 PM EDT Office Visit [facility] Infectious Diseases [address] [place] [address] Dana Rucker, DIVYA [facility], 2nd [place] [address] C. difficile colitis (Primary Dx) Social History Tobacco Use Types [...] ??F) 07/24/2024 2:06 PM EDT Respiratory Rate - - Oxygen Saturation 96% 07/24/2024 2:06 PM EDT Inhaled Oxygen Concentration - - Weight 75.9 kg (167 lb 6.4 oz) 07/24/2024 2:06 P M EDT Height - - Body Mass Index 27.02 07/10/2024 5:04 PM EDT documented in this encounter Progress Notes * Dana Rucker FNP - 07/24/2024 2:30 PM EDT History of Present Illness: Opal Juares is a 69 y.o. year-old presenting for follow-up of recurrent C diff. Opal was hospitalized for her 3rd bout of C diff from 07/10/2024- 07/13/2024. She is currently on a vancomycin taper. While I think pt would physically be able to tolerate a fecal transplant, she does have a history of recurrent urinary tract infection. I worry about repeated courses of antibiotics in the future leading to high risk of recurrence. We scheduled today's appointment to discuss VOWST. No current abdominal pain. Currently stooling about two times daily. Stool is formed. Reports it looks almost regular. Stool is brown. Still very soft when flushing. No fever. No dysuria, urgency, orfrequency. No vaginal discharge or bleeding. Mild tenderness around the rectum when she returned home, but currently feeling well. Able to swallow large pills, including potassium, without issue. FMT Recipient Inclusion/Exclusion Checklist Inclusion Criteria One of two required: Pass Recurrent or relapsing CDI (bishop paiute which) a. At least three episodes of rnst-jq-goklneiz CDI. b. At least two episodes of severe CDI resulting in hospitalization and associated with significantmorbidity. Include hospitalization dates: 04/16/2024, 05/13/2024, 07/13/2024 One protracted episode of CDI, defined as at least 3 weeks of ongoing Grade 3 severe symptoms of CDI despite standard antimicrobial therapy for CDI. We expect that most, but not all, subjects will have tried and failed a taper of vancomycin. Pass Positive C. diff test within 14 days prior to most recent antibiotic therapy Exclusion Criteria Pass Delayed gastric emptying syndrome Pass Inability to swallow large pills Pass ASA classification 4 or above Pass Age 6 or below Pass Pass test completed on ? Pass Patients with an acute illness unrelated to CDI or an acute exacerbation of underlying comorbid condition. Fail Patients on major immunosuppressive agents including high dose corticosteroids, calcineurin inhibitors, mTOR inhibitors, lymphocyte depleting biologic agents, anti-TNF agents, and others; chemotherapeutic anti-neoplastic agents. Pt is on both methotrexate and ritxuimab Pass Patients with decompensated liver cirrhosis, advanced HIV/AIDS, recent bone marrow transplant,hypogammaglobulinemia or other cause of severe immunodeficiency. We will consider solid organ and bone marrow transplant patients on stable immunosuppressive agentswith written agreement of the transplant infectious disease physicians or transplant physicians We will consider patients with cancer receiving chemotherapy with agreement of treating oncologists, if they can be in a reasonable window of recovered counts. Pass Severe food allergy not excluded from donor diet Pass Has completed baseline screening for HIV, Hepatitis B and C. Review of Systems: See HPI Medications: Current Outpatient Medications Ordered in [facility] Medication Sig alendronate (FOSAMAX) 70 MG tablet TAKE ONE TABLET BY MOUTH EVERY WEEK azelastine-fluticasone (DYMISTA) 137-50 mcg/spray Mcnabb 1 spray by Each Nare route 2 [...] capsule Take 1 Units by mouth daily. cranberry fruit extract (CRANBERRY EXTRACT) 500 mg Tab Take 15,000 mg by mouth daily. cyclobenzaprine (FLEXERIL) 5 MG [...] for anxiety. losartan (COZAAR) 25 MG tablet TAKE ONE TABLET BY MOUTH ONCE DAILY methenamine (HIPREX) 1 gram tablet TAKE ONE TABLET BY MOUTH TWICE A DAY WITH CRANBERRY PILL OR VITAMIN-C FOR UTI PREVENTION. HOLD IF STARTING ABX methotrexate 2.5 MG Oral tablet ondansetron (ZOFRAN-ODT) 4 MG disintegrating tablet DISSOLVE ONE TABLET BY MOUTH EVERY 8 HOURS NEEDED FOR NAUSEA AND VOMITING OXYBUTYNIN CHLORIDE ORAL Take 10 mg by mouth daily. OXYGEN-AIR DELIVERY SYSTEMS MISC 2 Liter NEEDED (route: Oxygen) potassium chloride SA (KLOR-CON M20) 20 MEQ ER tablet Take 1 tablet (20 mEq total) by mouth 2 (two)times a day. predniSONE (DELTASONE) 2.5 MG tablet Take 2.5 mg by mouth daily. riTUXimab (RITUXAN) 10 mg/mL injection Inject into the vein every 6 (six) months. sucralfate (CARAFATE) 1 gram tablet Take 1 tablet (1 g total) by mouth 4 (four) times a day. traMADoL (ULTRAM) 50 mg tablet Take 1 tablet (50 mg total) by mouth every 8 (eight) hours as needed. vancomycin (VANCOCIN) 125 MG capsule Take 1 capsule (125 mg total) by mouth every 6 (six) hours for11 days, THEN 1 capsule (125 mg total) every 12 (twelve) hours for 7 days, THEN 1 capsule (125 mg total) daily for 7 days, THEN 1 capsule (125 mg total) every other day for 7 days, THEN 1 capsule (125 mg total) every third day for 14 days. Physical Examination: General: in no acute [...] present in all quadrants. NoCVA tenderness Musculoskeletal: No joint swelling. Skin: No diffuse rash. Neurological: Alert, oriented x 3, and good strength in all limbs. Labs: Lab Results Component Value Date WBC 7.57 07/12/2024 RBC 4.87 07/12/2024 HGB 13.9 07/12/2024 HCT 44.0 07/12/2024 PLT 240 07/12/2024 MCV 90.3 07/12/2024 MCH 28.5 07/12/2024 MCHC 31.6 (L) 07/12/2024 RDW 13.0 07/12/2024 MVP 9.5 07/12/2024 NRBC 0.00 04/09/2014 NRBC 0.00 04/09/2014 NRBCA 0.00 07/12/2024 DIFMET Auto 07/11/2024 NEUT 74.2 07/11/2024 LYMP 8.4 (L) 07/11/2024 MON 12.8 (H) 07/11/2024 EOSP 3.9 07/11/2024 ANEU 8.45 (H) 07/11/2024 ALYMP 0.95 07/11/2024 AMONS 1.46 (H) 07/11/2024 AEOSN 0.44 07/11/2024 ABASOP 0.04 07/11/2024 BAND 1.0 06/26/2018 IMMGRAN 0.03 07/11/2024 Lab Results Component Value Date NA 145 07/12/2024 K 4.0 07/12/2024 CL 116 (H) 07/12/2024 CO2 17 (L) 07/12/2024 BUN 8 07/12/2024 CRE 0.50 07/12/2024 GLU 83 07/12/2024 ALB 2.7 (L) 07/11/2024 TP 5.0 (L) 07/11/2024 CA 8.3 (L) 07/12/2024 ALKP 80 07/11/2024 TBILI 0.4 07/11/2024 SGOT 27 07/11/2024 SGPT 28 07/11/2024 GLOB 2.3 07/11/2024 GFR 101 07/12/2024 ANION 16 07/12/2024 ALT 23 10/19/2011 PROBLEM LIST Patient Active [...] difficile colitis Current Assessment & Plan Pt has had 3 bouts of C diff. She has been unable to fully wean off vancomycin. She is unable to enroll in the [facility] fecal transplant program due to use of methotrexate and rituximab. We will pursue prescribing VOWST for fecal transplant. Discussed benefits vs risk with pt and Faustino. Filled out the [facility] enrollment paperwork and faxed along with hospital notes and most recent labs. Follow-up will be dependent upon when pt receives the medication. I personally spent 30 minutes today preparing for the patient, caring for the patient [id number],caring for the patient after the visit, and documenting in the record. I have maintained a long-term, longitudinal relationship with this patient, overseeing care of chronic conditions, including recurrent C diff colitis. This care relationship has significantly influenced my decision making and treatment plans during today's encounter. documented in this encounter Miscellaneous Notes * Assessment & Plan Note - Dana Rucker FNP - 07/24/2024 3:09 PM EDT Associated Problem(s): C. difficile colitis Pt has had 3 bouts of C diff. She has been unable to fully wean off vancomycin. She is unable to enroll in the [facility] fecal transplant program due to use of methotrexate and rituximab. We will pursue prescribing VOWST for fecal transplant. Discussed benefits vs risk with pt and Faustino. Filled out the [facility] enrollment paperwork and faxed along with hospital notes and most recent labs. Follow-up will be dependent upon when pt receives the medication. documented in this encounter Plan of Treatment Upcoming Encounters Date Type Department Care Team (Late st Contact Info) Description 06/06/2024 Procedure Pass [facility], [address] [address] 07/28/2024 1:00 PM EDT [facility] [address] [place] [phone] Trice De Santiago LPN [address] [place] [address] 07/30/2024 3:30 PM EDT [facility] Visit [facility] [address] [place] [address] [place] [address] Jerseyjayjay Kerenelsie Glaser, RED LEAD BURNER [address] [facility], 2nd [place] [address] 08/04/2024 2:30 AM EDT Home Care Visit [facility] [address] [place] [address] Orlnado Mckeon RN [address] [place] [address] 08/11/2024 2:00 AM EDT Home Care Visit [facility] [address] [place] [address] [place] Mckeon RN [address] [place] [address] 08/18/2024 1:30 AM EDT Home Care Visit [facility] [address] [place] [phone] [place] Mckeon RN [address] [place] [address] 08/25/2024 1:00 AM EDT Home Care Visit [facility] [address] [place] [address] [place] Mckeon RN [address] [place] [address] 09/01/2024 12:30 AM EDT Appointment [facility] [address] [place] [address] [place] Mckeon RN [address] [place] [address] 09/18/2024 2:30 PM EDT Office Visit [facility] Infectious Diseases [address] [place] [address] Dana Rucker, CALCULATION CLERK [address] [facility], [address] [place] [address] 11/26/2024 3:30 PM EDT Office Visit [address] [place] [address] Keren Poon, ORI [address] [place] [address] 12/11/2024 2:00 PM EDT Appointment [facility] [address] [place] [address] Keren Poon, ORI [address] [place] [address] 01/07/2025 2:30 PM EDT Office Visit [facility] [address] [place] [address] Jose Thakur MD [address] [place] [address] 06/03/2025 2:00 PM EST Office Visit [address] [place] [address] Keren Poon, ORI [address] [place] [address] documented as of this encounter Visit Diagnoses Diagnosis C. difficile colitis- Primary documented in this encounter Additional Health Concerns Infection Onset Date Last Indicated Resolved Time C. diff 07/10/2024 07/10/2024 Assessment Noted Time PHQ-9 Depression Total Score: 5 05/09/19 24 6:55 AM EST PHQ-2 Depression Total Score: 2 05/27/19 1:55 PM EST documented as of this encounter Care Teams Burial Vault Setter Relationship Specialty Start Date End Date Keren Poon CNP [address] [place] [address], 2nd [place] [address] PCP - General Family Medicine 01/31/23 Cash Fernandes MD [address] [place] [address] Gastroenterology 08/23/20 Willi Wells MD [address] [place], [place] [address] [address] Rheumatology 02/04/24 Jose Thakur MD [address] [place] [address] Mattress Filling Machine Tender Pulmonary Disease 03/17/24 Dana Rucker FNP 15 [facility], [address] [place] [address] Nurse Practitioner Infectious Diseases 05/21/24 Jonathan Alvarez MD [address] [place] [address], [address] [place] [address] Urology 05/14/23 Anival Borja MD [address] [place] [address], [address] [place] [address] [email or web address] Neurologist Neurology 01/04/23 Lyndsay Reynoso FNP [address] [address] [email or web address] Nurse Practitioner Pain Medicine 05/27/22 Gutierrez Pittman MD [address] [place] [phone] Tongue Binder Cardiology 05/27/24 documented as of this encounter Additional Source Comments The information contained in this document represents components of the legal health record. It is not the complete legal health record.[facility]
--- OUTSIDE RECORDS SUMMARY | 2024-07-28 12:12 | XMS_ITS | Encounter Summary ---
Author Organization [facility] Address [address] [place] [address] Care Team Providers Care Drying Rack Changer Name Role Phone Charly Saxena Primary Care Provider [phone] Cheryl Calderon MD Primary Care Provider [phone] Encounter Details Date Type Department Care Team (Late st Contact Info) Description 07/15/2017 Orders Only [facility] Rheumatology [address] [place] [address] Abel Fierro MD [address] [place] [address] Social History Tobacco Use Types Packs/Day Years [...] of this encounter Procedures * Due to [place] state law, this organization might not be [...] in this encounter Results * Due to [place] state law, this organization might not be sharing negative HIV tests. * CREATININE WITH GLOMERULAR FILTRATION RATE, ESTIMATED (EGFR) (07/15/2017 1:44 PM EDT) Creatinine 0.70 0.50 - 0.99 mg/dL [facility] Comment: For patients >49 years of age, the reference limit for Creatinine is approximately 13% higher for people identified as -Bahraini. GFR 93 > OR = 60 mL/min/1. [...] needs for GFR calculation. Resulting Agency Comment [id number] us Abel Fierro MD LAB SAME DAY RESULT Final Resul t [facility] [address] [place] [address] * ALANINE AMINOTRANSFERASE (ALT), SERUM (07/15/2017 1:44 PM EDT) ALT (SGPT) 23 6 - 29 U/L [facility] 07/15/2017 1:44 PM EDT 07/15/2017 6:18 PM EDT Narrative Resulting Agency Comment [id number] Abel Fierro MD LAB SAME DAY RESULT Final Resul t Performing Organization Address City/[facility]/ZIP Co de Phone Number [facility] [address] [place] [address] * ASPARTATE AMINOTRANSFERASE (AST), SERUM (07/15/2017 1:44 PM EDT) AST (SGOT) 28 10 - 35 U/L [facility] 07/15/2017 1:44 PM EDT 07/15/2017 6:18 PM EDT Narrative Resulting Agency Comment [id number] us Abel Fierro MD LAB SAME DAY RESULT Final Resul t Performing Organization Address [facility] de Phone Number [facility] [address] [place] [address] * (ABNORMAL) CBC INCLUDES DIFFERENTIAL AND PLATELET [...] 6:18 PM EDT Narrative Resulting Agency Comment [id number] us Abel Fierro MD LAB SAME DAY RESULT Final Resul t [facility] [address] [place] [address] documented in this encounter Visit Diagnoses Diagnosis Rheumatoid arthritis involving multiple sites, unspecified rheumatoid factor presence documented in this encounter Care Teams Drying Rack Changer Relationship Specialty Start Date End Date Charly Saxena [facility] [address] [place] [address] PCP - General Internal Medicine 05/25/13 07/16/17 Cheryl Calderon MD [facility] Adult Medicine [address] [place] [address] PCP - General Internal Medicine 07/17/17 documented as of this encounter
--- OUTSIDE RECORDS SUMMARY | 2024-07-28 12:12 | XMS_ITS | Encounter Summary ---
Author Organization [facility] Address [address] [place] [address] Care Team Providers Care Research Physiologist Name Role Phone Charly Saxena Primary Care Provider [phone] Cheryl Calderon MD Primary Care Provider [phone] Encounter Details Date Type Department Care Team (Late st Contact Info) Description 10/15/2016 Orders Only [facility] Rheumatology [address] [place] [address] Abel Fierro MD [address] [place] [address] Social History Tobacco Use Types Packs/Day Years [...] EDT) C reactive protein 0.19 <0.80 mg/dL [facility] Comment: Please be advised that patients taking Carboxypenicillins may exhibit falsely decreased C-Reactive Protein levels due to an analytical interference in this assay. 10/15/2016 12:3 9 PM EDT 10/15/2016 7:34 PM EDT Narrative Resulting Agency Comment [id number] us Abel Fierro MD LABORATORY Final Result [facility] [address] [place] [address] * ERYTHROCYTE SEDIMENTATION RATE (ESR), KUNAL (10/15/2016 12:39 PM EDT) Sedimentation Rate West[place]ren (ESR) 11 < OR = 30 mm/h [facility] 10/15/2016 12:3 9 PM EDT 10/15/2016 7:34 PM EDT Narrative Resulting Agency Comment [id number] us Abel Fierro MD LAB SAME DAY RESULT Final Resul t Performing Organization Address [facility] de Phone Number [facility] [address] [place] [address] * CREATININE WITH GLOMERULAR FILTRATION RATE, ESTIMATED (EGFR) (10/15/2016 12:39 PM EDT) Creatinine 0.79 0.50 - 0.99 mg/dL [facility] Comment: For patients >49 years of age, the reference limit for Creatinine is approximately 13% higher for people identified as -Brazilian. GFR 81 > OR = 60 mL/min/1. [...] needs for GFR calculation. Resulting Agency Comment [id number] us Abel Fierro MD LAB SAME DAY RESULT Final Resul t Performing Organization Address [facility] Co de Phone Number [facility] [address] [place] [address] * ALANINE AMINOTRANSFERASE (ALT), SERUM (10/15/2016 12:39 PM EDT) ALT (SGPT) 27 6 - 29 U/L [facility] 10/15/2016 12:3 9 PM EDT 10/15/2016 7:34 PM EDT Narrative Resulting Agency Comment [id number] us Abel Fierro MD LAB SAME DAY RESULT Final Resul t Performing Organization Address [facility] Co de Phone Number [facility] [address] [place] [address] * ASPARTATE AMINOTRANSFERASE (AST), SERUM (10/15/2016 12:39 PM EDT) AST (SGOT) 25 10 - 35 U/L [facility] 10/15/2016 12:3 9 PM EDT 10/15/2016 7:34 PM EDT Narrative Resulting Agency Comment [id number] us Abel Fierro MD LAB SAME DAY RESULT Final Resul t Performing Organization Address [facility] de Phone Number [facility] [address] [place] [address] * (ABNORMAL) CBC INCLUDES DIFFERENTIAL AND PLATELET [...] 7:34 PM EDT Narrative Resulting Agency Comment [id number] us Abel Fierro MD LAB SAME DAY RESULT Final Resul t [facility] [address] [place] [address] documented in this encounter Visit Diagnoses Diagnosis Rheumatoid arthritis involving multiple sites with positive rheumatoid factor (HCC) [M05.79] documented in this encounter Care Teams Research Physiologist Relationship Specialty Start Date End Date Charly Saxena [facility] [address] [place] [address] PCP - General Internal Medicine 05/25/13 07/16/17 Cheryl Calderon MD [facility] Medicine [address] [place] [address] PCP - General Internal Medicine 07/17/17 documented as of this encounter
--- OUTSIDE RECORDS SUMMARY | 2024-07-28 12:12 | XMS_ITS | Encounter Summary ---
Author Organization [facility] Address [address] [place] [address] Care Team Providers Care Recycling Specialist Name Role Phone Charly Saxena Primary Care Provider [phone] Cheryl Calderon MD Primary Care Provider [phone] Encounter Details Date Type Department Care Team (Late st Contact Info) Description 04/18/2017 Orders Only [facility] Rheumatology [address] [place] [address] Abel Fierro MD [address] [place] [address] Social History Tobacco Use Types Packs/Day Years [...] of this encounter Procedures * Due to [place] state law, this organization might not be sharing negative HIV tests. Procedure Name Priority Date/Time Associated Diagnosis Comments C-REACTIVE PROTEIN (CRP) - INFLAMMATION Routine 04/18/2017 12:15 PM EST Rheumatoid arthritis involving multiple sites with positive rheumatoid factor ERYTHROCYTE SEDIMENTATION RATE (ESR) Routine 04/18/2017 12:15 PM EST Rheumatoid arthritis involving multiple sites with positive rheumatoid factor CBC INCLUDES DIFFERENTIAL AND PLATELET COUNT Routine 04/18/2017 12:15 PM EST Rheumatoid arthritis involving multiple sites with positive rheumatoid factor ALANINE AMINOTRANSFERASE (ALT), SERUM Routine 04/18/2017 12:15 PM EST Rheumatoid arthritis involving multiple sites with positive rheumatoid factor ASPARTATE AMINOTRANSFERASE (AST), SERUM Routine 04/18/2017 12:15 PM EST Rheumatoid arthritis involving multiple sites with positive rheumatoid factor CREATININE WITH GLOMERULAR FILTRATION RATE, ESTIMATED (EGFR) Routine 04/18/2017 12:15 PM EST Rheumatoid arthritis involving multiple sites with positive rheumatoid factor documented in this encounter Results * Due to [place] state law, this organization might not be sharing negative HIV tests. * C-REACTIVE PROTEIN (CRP) - INFLAMMATION (04/18/2017 12:15 PM EST) C reactive protein 1.5 <8.0 mg/L [facility] 04/18/2017 12:1 5 PM EST 04/18/2017 5:02 PM EST Narrative Resulting Agency Comment [id number] us Abel Fierro MD LABORATORY Final Result [facility] [address] [place] [address] * ERYTHROCYTE SEDIMENTATION RATE (ESR), JOSEERGREN (04/18/2017 12:15 PM EST) Sedimentation Rate [place] (ESR) 9 < OR = 30 mm/h [facility] 04/18/2017 12:1 5 PM EST 04/18/2017 5:02 PM EST Narrative Resulting Agency Comment [id number] us Abel Fierro MD LAB SAME DAY RESULT Final Resul t Performing Organization Address [facility]/ZIP Co de Phone Number [facility] [address] [place] [address] * CREATININE WITH GLOMERULAR FILTRATION RATE, ESTIMATED (EGFR) (04/18/2017 12:15 PM EST) Creatinine 0.88 0.50 - 0.99 mg/dL [facility] Comment: For patients >49 years of age, the reference limit for Creatinine is approximately 13% higher for people identified as -Greenlandic. GFR 70 > OR = 60 mL/min/1. [...] needs for GFR calculation. Resulting Agency Comment [id number] us Abel Fierro MD LAB SAME DAY RESULT Final Resul t Performing Organization Address [facility] Co de Phone Number [facility] [address] [place] [address] * ALANINE AMINOTRANSFERASE (ALT), SERUM (04/18/2017 12:15 PM EST) ALT (SGPT) 19 6 - 29 U/L [facility] 04/18/2017 12:1 5 PM EST 04/18/2017 5:02 PM EST Narrative Resulting Agency Comment [id number] us Abel Fierro MD LAB SAME DAY RESULT Final Resul t Performing Organization Address [facility] Co de Phone Number [facility] [address] [place] [address] * ASPARTATE AMINOTRANSFERASE (AST), SERUM (04/18/2017 12:15 PM EST) AST (SGOT) 19 10 - 35 U/L [facility] 04/18/2017 12:1 5 PM EST 04/18/2017 5:02 PM EST Narrative Resulting Agency Comment [id number] us Abel Fierro MD LAB SAME DAY RESULT Final Resul t Performing Organization Address [facility] de Phone Number [facility] [address] [place] [address] * CBC INCLUDES DIFFERENTIAL AND PLATELET COUNT [...] 5:02 PM EST Narrative Resulting Agency Comment [id number] us Abel Fierro MD LAB SAME DAY RESULT Final Resul t Performing Organization Address [facility] Co de Phone Number [facility] [address] [place] [address] documented in this encounter Visit Diagnoses Diagnosis Rheumatoid arthritis involving multiple sites with positive rheumatoid factor (HCC) documented in this encounter Care Teams Recycling Specialist Relationship Specialty Start Date End Date Charly Saxena [facility] [address] [place] [address] PCP - General Internal Medicine 05/25/13 07/16/17 Cheryl Calderon MD [facility] Adult Medicine [address] [place] [address] PCP - General Internal Medicine 07/17/17 documented as of this encounter
--- OUTSIDE RECORDS SUMMARY | 2024-07-28 12:12 | XMS_ITS | Encounter Summary ---
Author Organization [facility] Address [address] [place] [address] Care Team Providers Care Monument Setter Name Role Phone Charly Saxena Primary Care Provider [phone] Cheryl Calderon MD Primary Care Provider [phone] Reason for Visit * Reason Comments E-prescribing Refill Request Encounter Details Date Type Department Care Team ([facility] st Contact Info) Description 03/18/2017 Refill [facility] Rheumatology [address] [place] [address] Abel Fierro MD [address] [place] [address] E-prescribing Refill Request Social History Tobacco Use [...] encounter Miscellaneous Notes * Telephone Encounter - BenavidesCandace byers - 03/26/2017 9:44 AM EST Spoke with Opal She states she has since moved and asked us to send a request for labs to [facility] in [place], [place] Lab request form sent to the [...] Phone 04/18/17 1:30 PM Abel Fierro MD [facility] [phone] 07/15/17 1:00 PM Abel Fierro MD [facility] [phone] Pertinent lab results: No labs suggested for any medication orders signed or pended in this encounter. Refresh if any orders changed. Allergies: Acetaminophen-codeine; Gold; Opioid analgesics; and Sulfa antibiotics BP Readings from Last 1 Encounters: 12/28/16 (!) 149/85 Patient Active Problem List Diagnosis Date Noted ??? Elbow pain 06/03/2012 ??? Rheumatoid arthritis(714.0) ([facility]) 09/29/2010 Followed by rheumatology treated with [...] MOUTH EVERY DAY 0 ??? Nystatin (NYSTOP) 593290 UNIT/GM Powder APPLY TO BUTTOCKS THREE TIMES [...] on filedocumented in this encounter Care Teams Monument Setter Relationship Specialty Start Date End Date Charly Saxena [facility] [address] [place] [address] PCP - General Internal Medicine 05/25/13 07/16/17 Cheryl Calderon MD [facility] Medicine [address] [place] [address] PCP - General Internal Medicine 07/17/17 documented as of this encounter
--- OUTSIDE RECORDS SUMMARY | 2024-07-28 12:12 | XMS_ITS | Encounter Summary ---
Author Organization [facility] Address [address] [place] [address] Phone Care Team Providers Care Beam Racker Name Role Phone Cash Fernandes MD Unavailable [phone] Keren Poon MACHINE WASHER Primary Care Provid er Willi Wells MD Unavailable Jose Thakur MD Unavailable Dana Rucker GAMES DEALER Unavailable Jonathan Alvarez MD Unavailable [phone] Anival Borja MD Unavailable Lyndsay Reynoso GAMES DEALER Unavailable [phone] Gutierrez Pittman MD Unavailable [phone] Reason for Visit * Reason Comments Medication Refill Encounter Details Date Type Department Care Team (Late st Contact Info) Description 07/23/2024 Refill [facility] [address] [place] [address] Dr [place] [phone] Keren Poon, MACHINE WASHER [address] [place] [address], [address] Floor [place] [address] [email or web address] Medication Refill Social History Tobacco Use Types [...] as of this encounter Progress Notes * Cesar Peres CMA - 07/23/2024 3:49 PM EDT Rx Care Gap Status - Instructions for Clinical Staff (prescriber discretion applies): n/a Visit Info Last visit: 05/27/2024 Keren Poon CNP - Family Medicine [facility] > Requested f/u: Return in about 6 months (around 11/24/2024) for Next scheduled follow up. Upcoming visit: 07/30/2024 Keren Poon CNP - Family Medicine [facility] ACTIONS TAKEN BY Cesar Peres CMA - Refill protocol passed: no action needed. ACEi / ARBs / Diuretic Rx Protocol (on HTN Registry) - losartan potassium Criteria met; renew for up to 12 months. Visit in the past 14 months: Yes Clinical criteria: - BP within last 6 months: 150/82 on 07/22/2024 - BMP within past year: Yes - Cr, GFR and K are normal: Yes Lab Results Component Value Date SODIUM 145 07/12/2024 POTASSIUM 4.0 07/12/2024 CHLORIDE 116 (H) 07/12/2024 CO2 17 (L) 07/12/2024 BUN 8 07/12/2024 CREATININE 0.50 07/12/2024 EGFR 101 07/12/2024 documented in this encounter Plan of Treatment Upcoming Encounters Date Type Department Care Team (Late st Contact Info) Description 06/06/2024 Procedure Pass [facility], [address] [address] 07/28/2024 1:00 PM EDT Home Care Visit [facility] [address] [place] [phone] Trice De Santiago LPN [address] [place] [address] [email or web address] 07/30/2024 3:30 PM EDT Office Visit [facility] [address] [place] [address] [place] [address] Keren Poon, MACHINE WASHER [address] [place] [address], [address] [place] [address] [email or web address] 08/04/2024 2:30 AM EDT Home Care Visit [facility] [address] [place] [phone] Orlando Mckeon RN [address] [place] [address] [email or web address] 08/11/2024 2:00 AM EDT Home Care Visit [facility] [address] [place] [address] Orlando Mckeon RN [address] [place] [address] [email or web address] 08/18/2024 1:30 AM EDT Home Care Visit [facility] [address] [place] [phone] Orlando Mckeon, RENZO [address] [place] [address] 08/25/2024 1:00 AM EDT Home Care Visit [facility] [address] [place], [place] [phone] Orlando Mckeon RN [address] [place] [address] 09/01/2024 12:30 AM EDT Appointment [facility] [address] [place], [place] [phone] Orlando Mckeon RN [address] [place] [address] 09/18/2024 2:30 PM EDT Office Visit [facility] Infectious Diseases [address] [place] [address] Dana Rucker, GAMES DEALER [address] [address] 11/26/2024 3:30 PM EDT Office Visit [facility] [address] [place] [address] [place] [address] Keren Poon, MACHINE WASHER [address] [address] 12/11/2024 2:00 PM EDT Appointment [facility] [address] [place] [address] Keren Poon, MACHINE WASHER 170 [facility], [address] [place] [address] 01/07/2025 2:30 PM EDT Office Visit [facility] [address] [place] [address] Jose Thakur MD [address] [place] [address] 06/03/2025 2:00 PM EST Office Visit [facility] [address] [place] [address] [place] [address] Keren Poon CNP [address] [place] [address] documented as of this encounter Visit Diagnoses Diagnosis Primary hypertension Unspecified essential hypertension documented in this encounter Additional Health Concerns Infection Onset Date Last Indicated Resolved Time C. diff 07/10/2024 07/10/2024 Assessment Noted Time PHQ-9 Depression Total Score: 5 05/09/19 24 6:55 AM EST PHQ-2 Depression Total Score: 2 05/27/19 25 1:55 PM EST documented as of this encounter Care Teams Beam Racker Relationship Specialty Start Date End Date Keren Poon, ORI [address] [place] [address] PCP - General Family Medicine 01/31/23 Cash Fernandes MD [address] [place] [address] Gastroenterology 08/23/20 Willi Wells MD [address] [place], [place] [address]R[place] [address] Rheumatology 02/04/24 Jose Thakur MD [address] [place] [address] Industrial Relations Worker Pulmonary Disease 03/17/24 Dana Rucker FNP [address] [address] Nurse Practitioner Infectious Diseases 05/21/24 Jonathan Alvarez MD [address] [place] [address], [address] [place] [address] Urology 05/14/23 Anival Borja MD [address] [place] [address], [address] [place] [address] Neurologist Neurology 01/04/23 Lyndsay Reynoso FNP [address] [place] [address] [place] [address] [email or web address] Nurse Practitioner Pain Medicine 05/27/22 Gutierrez Pittman MD [address] [place] [address] Epic Application Coordinator Cardiology 05/27/24 documented as of this encounter Additional Source Comments The information contained in this document represents components of the legal health record. It is not the complete legal health record.[facility]
--- OUTSIDE RECORDS SUMMARY | 2024-07-28 12:12 | XMS_ITS | Encounter Summary ---
Author Organization [facility] Address [address] [place] [address] Care Team Providers Care Bleach Liquor Maker Name Role Phone Charly Saxena Primary Care Provider [phone] Cheryl Calderon MD Primary Care Provider [phone] Encounter Details Date Type Department Care Team (Late st Contact Info) Description 12/28/2016 Orders Only [facility] Rheumatology [address] [place] [address] Abel Fierro MD [address] [place] [address] Social History Tobacco Use Types Packs/Day Years [...] rheumatoid factor ERYTHROCYTE SEDIMENTATION RATE (ESR) Routine 12/28/2016 3:13 PM EDT Rheumatoid arthritis involving multiple sites with positive rheumatoid factor CBC INCLUDES DIFFERENTIAL AND PLATELET COUNT Routine 12/28/2016 3:13 PM EDT Rheumatoid arthritis involving multiple sites with positive rheumatoid factor ALANINE AMINOTRANSFERASE (ALT), SERUM Routine 12/28/2016 3:13 PM EDT Rheumatoid arthritis involving multiple sites with positive rheumatoid factor ASPARTATE AMINOTRANSFERASE (AST), SERUM Routine 12/28/2016 3:13 PM EDT Rheumatoid arthritis involving multiple sites with positive rheumatoid factor BASIC METABOLIC PANEL WITH (GFR) Routine 12/28/2016 [...] 8:27 PM EDT Narrative Resulting Agency Comment [id number] us Abel Fierro MD LAB SAME DAY RESULT Final Resul t [facility] [address] [place] [address] * ALANINE AMINOTRANSFERASE (ALT), SERUM (12/28/2016 3:13 PM EDT) ALT (SGPT) 29 6 - 29 U/L [facility] 12/28/2016 3:13 PM EDT 12/28/2016 8:27 PM EDT Narrative Resulting Agency Comment [id number] us Abel Fierro MD LAB SAME DAY RESULT Final Resul t [facility] [address] [place] [address] * C-REACTIVE PROTEIN (CRP) - INFLAMMATION (12/28/2016 3:13 PM EDT) C reactive protein 0.24 <0.80 mg/dL [facility] Comment: Please be advised that patients taking Carboxypenicillins may exhibit falsely decreased C-Reactive Protein levels due to an analytical interference in this assay. 12/28/2016 3:13 PM EDT 12/28/2016 8:27 PM EDT Narrative Resulting Agency Comment [id number] Abel Fierro MD LABORATORY Final Result Performing Organization Address [facility] Co de Phone Number [facility] [address] [place] [address] * ERYTHROCYTE SEDIMENTATION RATE (ESR), WESTERGREN (12/28/2016 3:13 PM EDT) Pathologist [facility] Sedimentation Rate Westegren (ESR) 6 < OR = 30 mm/h [facility] 12/28/2016 3:13 PM EDT 12/28/2016 8:27 PM EDT Narrative Resulting Agency Comment [id number] Abel Fierro MD LAB SAME DAY RESULT Final Resul t Performing Organization Address [facility] de Phone Number [facility] [address] [place] [address] * (ABNORMAL) BASIC METABOLIC PANEL WITH (GFR) [...] approximately 13% higher for people identified as -Albanian. GFR 77 > OR = 60 mL/min/1 .73m2 [facility] GFR () 90 > OR = 60 mL/min/1 .73m2 [facility] BUN/Creatinine Ratio NOT APPLICABLE 6 - 22 (calc) [facility] Sodium 149(H) 135 - [...] needs for GFR calculation. Resulting Agency Comment [id number] us Abel Fierro MD LABORATORY Final Result [facility] [address] [place] [address] * (ABNORMAL) CBC INCLUDES DIFFERENTIAL AND PLATELET [...] 8:27 PM EDT Narrative Resulting Agency Comment [id number] us Abel Fierro MD LAB SAME DAY RESULT Final Resul t Performing Organization Address City/State/[facility] Co de Phone Number [facility] [address] [place] [address] documented in this encounter Visit Diagnoses Diagnosis Rheumatoid arthritis involving multiple sites with positive rheumatoid factor (HCC) documented in this encounter Care Teams Bleach Liquor Maker Relationship Specialty Start Date End Date Charly Saxena [facility] [address] [place] [address] PCP - General Internal Medicine 05/25/13 07/16/17 Cheryl Calderon MD [facility] Medicine [address] [place] [address] PCP - General Internal Medicine 07/17/17 documented as of this encounter
--- OUTSIDE RECORDS SUMMARY | 2024-07-28 12:12 | XMS_ITS | Encounter Summary ---
Author Organization [facility] Address [address] [place] [address] Care Team Providers Care Sanitation Director Name Role Phone Alberto Pacheco Primary Care Provider [phone] Unknown Pcp, Non Rmg Primary Care Provider Unava ilable Charly Saxena Primary Care Provider [phone] Charly Saxena Primary Care Provider [phone] Cheryl Calderon MD Primary Care Provider [phone] Encounter Details Date Type Department Care Team (Late st Contact Info) Description 02/04/2007 Orders Only [facility] Rheumatology [address] [place] [address] Abel Fierro MD [address] [place] [address] Social History Tobacco Use Types Packs/Day Years [...] this encounter Procedures * Due to [place] i-nexus law, this organization might not be sharing [...] - 35 U/L [facility] (CLIA# [id number]) 02/04/2007 02/04/2007 7:3 1 PM EDT us Abel Fierro MD LAB SAME DAY RESULT Final Resul t [facility] (CLIA# [id number]) [address] [place] [address] * (ABNORMAL) CBC 5 PART DIFF (02/04/2007) WHITE BLOOD COUNT 9.7 3.8 - 10.8 THOUS/UL [facility] (CLIA# [id number]) RBC 5.08 3.80 - 5.10 MIL/UL [facility] (CLIA# [id number]) Hemoglobin 15.4 11.7 - 15.5 G/DL [facility] (CLIA# [id number]) HCT (HEMATOCRIT) 45.3(H) 35.0 - 45.0 % [facility] (CLIA# [id number]) MCV 89.2 80.0 - 100.0 FL [facility] (CLIA# [id number]) MCH 30.4 27.0 - 33.0 PG [facility] (CLIA# [id number]) MCHC 34.1 32.0 - 36.0 G/DL [facility] (CLIA# [id number]) BAND % 0 0 - 5 % [facility] (CLIA# [id number]) NEUTROPHIL % 84(H) 48 - 75 % [facility] (CLIA# [id number]) LYMPHOCYTE % 10(L) 17 - 40 % [facility] (CLIA# [id number]) MONOCYTE % 6 0 - 14 % [facility] (CLIA# [id number]) EOSINOPHIL % 0 0 - 5 % [facility] (CLIA# [id number]) BASOPHIL % 0 0 - 3 % [facility] (CLIA# [id number]) ATYPICAL LYMPHOCYTE % 0 0 - 5 % [facility] (CLIA# [id number]) PLATELETS 392 140 - 400 THOUS/UL [facility] (CLIA# [id number]) BANDS # 0 0 - 750 CELLS/MCL [facility] (CLIA# [id number]) NEUTROPHILS # 8148(H) 1500 - 7800 CELLS/MCL [facility] (CLIA# [id number]) LYMPHOCYTES # 970 850 - 3900 CELLS/MCL [facility] (CLIA# [id number]) MONOCYTES # 582 200 - 950 CELLS/MCL [facility] (CLIA# [id number]) EOSINOPHILS # 0(L) 15 - 550 CELLS/MCL [facility] (CLIA# [id number]) BASOPHILS # 0 0 - 200 CELLS/MCL [facility] (CLIA# [id number]) ATYPICAL LYMPHOCYTES # 0 0 - 200 /UL [facility] (CLIA# [id number]) RDW 14.6 11.0 - 15.0 % [facility] (CLIA# [id number]) MPV 7.6 7.5 - 11.5 FL [facility] (CLIA# [id number]) 02/04/2007 02/04/2007 7:3 1 PM EDT us Abel Fierro MD LAB SAME DAY RESULT Final Resul t [facility] (CLIA# [id number]) [address] [place] [address] documented in this encounter Visit Diagnoses Diagnosis RHEUMATOID ARTHRITIS Rheumatoid arthritis documented in this encounter Care Teams Sanitation Director Relationship Specialty Start Date End Date Alberto Pacheco [address] [place] [address] PCP - General 07/19/08 05/24/13 Unknown Pcp, Non Rmg PCP - General 06/30/08 07/18/08 Charly Saxena [facility] [address] [place] [address] PCP - General 01/18/06 06/29/08 Charly Saxena [facility] [address] [place] [address] PCP - General Internal Medicine 05/25/13 07/16/17 Cheryl Calderon MD [facility] Medicine [address] [place] [address] PCP - General Internal Medicine 07/17/17 documented as of this encounter
--- OUTSIDE RECORDS SUMMARY | 2024-07-28 12:12 | XMS_ITS | Encounter Summary ---
Author Organization [facility] Address [address] [facility] [place] [address] Phone Care Team Providers Care Marbleizing Machine Tender Name Role Phone JessicaMattie oliveirasheryl Mccrackengh [facility] Primary Care Provider Cash Fernandes MD Unavailable [phone] Seven Menchaca MD Unavailable [phone] Chavo Jack MD Primary Care Provider [phone] Keren Poon [facility] Primary Care Provid er Chavo Jack MD Unavailable Willi Wells MD Unavailable Jose Thakur MD Unavailable Dana Rucker KEY CUTTER Unavailable [phone] Jonathan Alvarez MD Unavailable [phone] Anival Borja MD Unavailable [phone] Lyndsay Reynoso KEY CUTTER Unavailable [phone] Gutierrez Pittman MD Unavailable [phone] Encounter Details Date Type Department Care Team (Late st Contact Info) Description 04/10/2021 Procedure Pass [facility] Admitting Dept Virtual Department [address] [place] [address] Social History Tobacco Use Types Packs/Day Years [...] high school, GED, job training, learning the Chinese language, technical skills, or developing parenting skills)? [...] 06/06/2024 Procedure Pass [facility], [facility] [address] [place] [address] 07/28/2024 1:00 PM EDT Home Care Visit [facility] [address] [place] [phone] Trice De Santiago LPN [address] [place] [address] 07/30/2024 3:30 PM EDT Office Visit [facility] [address] [place] [address] Keren Poon, ORI [address] [facility], 2nd [place] [address] 08/04/2024 2:30 AM EDT Home Care Visit [facility] [address] [place] [phone] Orlando Mckeon RN [address] [place] [address] 08/11/2024 2:00 AM EDT Home Care Visit [facility] [address] [place] [phone] Orlando Mckeon RN [address] [place] [address] 08/18/2024 1:30 AM EDT Home Care Visit [facility] [address] [place] [address] Orlando Mckeon RN [address] [place] [address] 08/25/2024 1:00 AM EDT Home Care Visit [facility] [address] [place] [phone] Orlando Mckeon RN [address] [place] [address] 09/01/2024 12:30 AM EDT Appointment [facility] [address] [place] [phone] Orlando Mckeon RN [address] [place] [address] 09/18/2024 2:30 PM EDT Office Visit [facility] Infectious Diseases [address] [place] [address] Dana Rucker FNP [address] [address] 11/26/2024 3:30 PM EDT Office Visit [address] [place] [address] Keren Poon, KNIFE CHANGER [address] [address] 12/11/2024 2:00 PM EDT Appointment [facility] [address] [place] [address] Keren Poon, KNIFE CHANGER [address] [address] 01/07/2025 2:30 PM EDT Office Visit [facility], Allergy [facility] Critical Care Medicine [address] [place] [address] Jose Thakur MD 30 [place] [address] 06/03/2025 2:00 PM EST Office Visit [facility] [address] [place] [address] Dr [place] [address] Keren Poon CNP [address] [facility], 2nd Floor [place] [address] [email or web address] documented as of this encounter Visit Diagnoses [...] documented as of this encounter Care Teams Marbleizing Machine Tender Relationship Specialty Start Date End Date Ita Pineda CNP [address] [place] [address] [email or web address] PCP - General Internal Medicine 08/19/20 09/17/22 Chavo Jack MD [address] [place] [address] PCP - General Internal Medicine 09/18/22 01/30/23 Keren Poon CNP [address] [place] [address] 2[address] [place] [address] [email or web address] PCP - General Family Medicine 01/31/23 Cash Fernandes MD [address] [place] [address] Gastroenterology 08/23/20 Seven Menchaca MD [address] [place] [address] Insurance Assigned Provider 08/04/22 08/03/23 Chavo Jack MD [address] [place] [address] Insurance Assigned Provider 08/03/23 05/04/24 Willi Wells MD [address] [place] [address] Rheumatology 02/04/24 Jose Thakur MD [address] [place] [address] Dressmaker Helper Pulmonary Disease 03/17/24 Dana Rucker FNP 15 [facility], [address] [place] [address] [email or web address] Nurse Practitioner Infectious Diseases 05/21/24 Jonathan Alvarez MD [address] [place] [address], [address] [place] [address] [email or web address] Urology 05/14/23 Anival Borja MD [address] [place] [address], [address] [place] [address] [email or web address] Neurologist Neurology 01/04/23 Lyndsay Reynoso FNP [address] [place] [address] [place] [address] [email or web address] Nurse Practitioner Pain Medicine 05/27/22 Gutierrez Pittman MD [address] [place] [phone] Clinical Care Leader Cardiology 05/27/24 documented as of this encounter Additional Source Comments The information contained in this document represents components of the legal health record. It is not the complete legal health record.[facility]
--- OUTSIDE RECORDS SUMMARY | 2024-07-28 12:12 | XMS_ITS | Encounter Summary ---
Author Organization [facility] Address [address] [place] [address] Care Team Providers Care Sales Compensation Analyst Name Role Phone Alberto Pacheco Primary Care Provider [phone] Charly Saxena Primary Care Provider [phone] Cheryl Calderon MD Primary Care Provider [phone] Encounter Details Date Type Department Care Team (Late st Contact Info) Description 01/18/2009 Orders Only [facility] Rheumatology [address] [place] [address] Abel Fierro MD [address] [place] [address] Social History Tobacco Use Types Packs/Day Years [...] RATE, ESTIMATED (EGFR) Routine 01/18/2009 Rheumatoid Arthritis ([facility]) Encounter for Long-Term (Current) Use of Other Medications SED RATE ESR Routine 01/18/2009 Rheumatoid Arthritis ([facility]) Encounter for Long-Term (Current) Use of Other Medications CBC 5 PART DIFF Routine 01/18/2009 Rheumatoid Arthritis ([facility]) Encounter for Long-Term (Current) Use of Other Medications ALANINE AMINOTRANSFERASE (ALT), SERUM Routine 01/18/2009 Rheumatoid Arthritis ([facility]) Encounter for Long-Term (Current) Use of Other Medications ASPARTATE AMINOTRANSFERASE (AST), SERUM Routine 01/18/2009 Rheumatoid Arthritis ([facility]) Encounter for Long-Term (Current) Use of Other Medications ALBUMIN Routine 01/18/2009 Rheumatoid Arthritis ([facility]) Encounter for Long-Term (Current) Use of Other Medications documented in this encounter Results * Due to [place] state law, this organization might not be sharing negative HIV tests. * C-REACTIVE PROTEIN (CRP), QUANTITATIVE, SERUM INFLAMMATION (01/18/2009) C REACTIVE PROTEIN (CRP) 0.6 0 - 0.7 MG/DL [facility] 01/18/2009 01/18/2009 8:1 8 PM EDT us Abel Fierro MD LABORATORY Final Result Performing Organization Address City/[facility] Co de Phone Number [facility] [address] [place] [address] * SED RATE ESR (01/18/2009) ESR (ERYTHROCYTE SEDIMENTATION RATE) 5 0 - 30 MM/HR [facility] 01/18/2009 01/18/2009 8:1 8 PM EDT us Abel Fierro MD LAB SAME DAY RESULT Final Resul t Performing Organization Address City/[facility]/ZIP Co de Phone Number [facility] [address] [place] [address] * ALBUMIN (01/18/2009) ALBUMIN 3.8 3.5 - 4.9 G/DL [facility] 01/18/2009 01/18/2009 8:1 8 PM EDT us Abel Fierro MD LAB SAME DAY RESULT Final Resul t Performing Organization Address [facility] de Phone Number [facility] [address] [place] [address] * CREATININE WITH GLOMERULAR FILTRATION RATE, ESTIMATED [...] Final Resul t Performing Organization Address [facility] de Phone Number [facility] [address] [place] [address] * ALANINE AMINOTRANSFERASE (ALT), SERUM (01/18/2009) ALT (SGPT) 20 6 - 40 U/L [facility] 01/18/2009 01/18/2009 8:1 8 PM EDT us Abel Fierro MD LAB SAME DAY RESULT Final Resul t Performing Organization Address [facility] Co de Phone Number [facility] [address] [place] [address] * ASPARTATE AMINOTRANSFERASE (AST), SERUM (01/18/2009) AST (SGOT) 19 10 - 35 U/L [facility] 01/18/2009 01/18/2009 8:1 8 PM EDT us Abel Fierro MD LAB SAME DAY RESULT Final Resul t [facility] [address] [place] [address] * (ABNORMAL) CBC 5 PART DIFF (01/18/2009) [...] RESULT Final Resul t [facility] [address] [place] [address] documented in this encounter Visit Diagnoses Diagnosis Rheumatoid arthritis(714.0) Rheumatoid arthritis Encounter for long-term (current) use of other medications documented in this encounter Care Teams Sales Compensation Analyst Relationship Specialty Start Date End Date Alberto Pacheco [address] [place] [address] PCP - General 07/19/08 05/24/13 Charly Saxena [facility] [place] [address] PCP - General Internal Medicine 05/25/13 07/16/17 Cheryl Calderon MD [facility] Adult Medicine [address] [place] [address] PCP - General Internal Medicine 07/17/17 documented as of this encounter
--- OUTSIDE RECORDS SUMMARY | 2024-07-28 12:12 | XMS_ITS | Encounter Summary ---
Author Organization [facility] Address [address] [place] [address] Care Team Providers Care Air Hammer Stripper Name Role Phone Cheryl Calderon MD Primary Care Provider [phone] Encounter Details Date Type Department Care Team (Late st Contact Info) Description 03/14/2018 Orders Only [facility]. Rheumatology [address] [place] [phone] Abel Fierro MD [address] [place] [address] Social History Tobacco Use Types Packs/Day Years [...] factor C-REACTIVE PROTEIN (CRP) - INFLAMMATION Routine 03/14/2018 1:47 PM EST Rheumatoid arthritis involving multiple sites with positive rheumatoid factor ERYTHROCYTE SEDIMENTATION RATE (ESR) Routine 03/14/2018 1:47 PM EST Rheumatoid arthritis involving multiple sites with positive rheumatoid factor CBC INCLUDES DIFFERENTIAL AND PLATELET COUNT Routine 03/14/2018 1:47 PM EST Rheumatoid arthritis involving multiple sites with positive rheumatoid factor ALANINE AMINOTRANSFERASE (ALT), SERUM Routine 03/14/2018 1:47 PM EST Rheumatoid arthritis involving multiple sites with positive rheumatoid factor ASPARTATE AMINOTRANSFERASE (AST), SERUM Routine 03/14/2018 1:47 [...] 9:19 PM EST Narrative Resulting Agency Comment [id number] us Abel Fierro MD LABORATORY Final Result Performing Organization Address City/[facility] Co de Phone Number [facility] [address] [place] [address] * C-REACTIVE PROTEIN (CRP) - INFLAMMATION (03/14/2018 1:47 PM EST) C reactive protein 1.7 <8.0 mg/L [facility] 03/14/2018 1:47 PM EST 03/14/2018 9:19 PM EST Narrative Resulting Agency Comment [id number] us Abel Fierro MD LABORATORY Final Result Performing Organization Address [facility] Co de Phone Number [facility] [address] [place] [address] * ERYTHROCYTE SEDIMENTATION RATE (ESR), [place] (03/14/2018 1:47 PM EST) Sedimentation Rate [place] (ESR) 19 < OR = 30 mm/h [facility] 03/14/2018 1:47 PM EST 03/14/2018 9:19 PM EST Narrative Resulting Agency Comment [id number] Abel Fierro MD LAB SAME DAY RESULT Final Resul t Performing Organization Address City/[facility] Co de Phone Number [facility] [address] [place] [address] * CREATININE WITH GLOMERULAR FILTRATION RATE, ESTIMATED (EGFR) (03/14/2018 1:47 PM EST) Creatinine 0.70 0.50 - 0.99 mg/dL [facility] Comment: For patients >49 years of age, the reference limit for Creatinine is approximately 13% higher for people identified as -Belgian. GFR 92 > OR = 60 mL/min/1. [...] needs for GFR calculation. Resulting Agency Comment [id number] us Abel Fierro MD LAB SAME DAY RESULT Final Resul t Performing Organization Address City/[facility] Co de Phone Number [facility] [address] [place] [address] * ALANINE AMINOTRANSFERASE (ALT), SERUM (03/14/2018 1:47 PM EST) ALT (SGPT) 18 6 - 29 U/L [facility] 03/14/2018 1:4 7 PM EST 03/14/2018 9:19 PM EST Narrative Resulting Agency Comment [id number] Abel Fierro MD LAB SAME DAY RESULT Final Resul t [facility] [address] [place] [address] * ASPARTATE AMINOTRANSFERASE (AST), SERUM (03/14/2018 1:47 PM EST) AST (SGOT) 23 10 - 35 U/L [facility] 03/14/2018 1:47 PM EST 03/14/2018 9:19 PM EST Narrative Resulting Agency Comment [id number] Abel Fierro MD LAB SAME DAY RESULT Final Resul t Performing Organization Address [facility] de Phone Number [facility] [address] [place] [address] * (ABNORMAL) CBC INCLUDES DIFFERENTIAL AND PLATELET [...] 9:19 PM EST Narrative Resulting Agency Comment [id number] us Abel Fierro MD LAB SAME DAY RESULT Final Resul t Performing Organization Address City/State/[facility] Co de Phone Number [facility] [address] [place] [address] documented in this encounter Visit Diagnoses Diagnosis Rheumatoid arthritis involving multiple sites with positive rheumatoid factor (HCC) documented in this encounter Care Teams Air Hammer Stripper Relationship Specialty Start Date End Date Cheryl Calderon MD [facility] Adult Medicine [address] [place] [address] PCP - General Internal Medicine 07/17/17 documented as of this encounter
--- OUTSIDE RECORDS SUMMARY | 2024-07-28 12:12 | XMS_ITS | Encounter Summary ---
Author Organization [facility] Address [address] [place] [address] Phone Care Team Providers Care Transition Manager Name Role Phone Cash Fernandes MD Unavailable [phone] Seven Menchaca MD Unavailable Chavo Jack MD Primary Care Provider [phone] Keren Poon [facility] Primary Care Provid er Chavo Jack MD Unavailable Willi Wells MD Unavailable Jose Thakur MD Unavailable Dana Rucker AUTH SPECIALIST Unavailable Jonathan Alvarez MD Unavailable [phone] Anival Borja MD Unavailable [phone] Lyndsay Reynoso AUTH SPECIALIST Unavailable [phone] Gutierrez Pittman MD Unavailable [phone] Encounter Details Date Type Department Care Team (Late st Contact Info) Description 10/04/2022 Procedure Pass [facility], [address] [place] [address] Social History Tobacco Use Types Packs/Day Years [...] Info) Description 06/06/2024 Procedure Pass [facility], [facility]- [address] [address] 07/28/2024 1:00 PM EDT [facility] [address] [place] [address] Trice De Santiago LPN [address] [place] [address] 07/30/2024 3:30 PM EDT Office Visit [facility] [address] [place], [place] [address], [place] [address] Keren Poon, EIGHT ARM OPERATOR 170 [facility], 2nd [place] [address] 08/04/2024 2:30 AM EDT [facility] [address] [place] [address] Orlando Mckeon RN [address] [place] [address] 08/11/2024 2:00 AM EDT [facility] [address] [place] [address] Orlando Mckeon RN [address] [place] [address] 08/18/2024 1:30 AM EDT [facility] [address] [place] [address] Orlando Mckeon RN [address] [place] [address] 08/25/2024 1:00 AM EDT [facility] [address] [place], [place] [phone] Orlando Mckeon RN [address] [place] [address] 09/01/2024 12:30 AM EDT Appointment [facility] [address] [place] [address] Orlando Mckeon RN [address] [place] [address] 09/18/2024 2:30 PM EDT Office Visit [facility] Infectious Diseases [address] [place] [address] Dana Rucker, AUTH SPECIALIST [address] [address] 11/26/2024 3:30 PM EDT Office Visit [facility] [address] [place] [address] [place] [address] Keren Poon, EIGHT ARM OPERATOR [address] [place] [address] 12/11/2024 2:00 PM EDT Appointment [facility] [address] [place] [address] Keren Poon, EIGHT ARM OPERATOR [address] [address] 01/07/2025 2:30 PM EDT Office Visit [facility] All[facility] Medicine [address] [place] [address] Jose Thakur MD 30 [place] [address] 06/03/2025 2:00 PM EST Office Visit [facility] [address] [place] [address] Dr [place] [address] Keren Poon CNP 170 [facility], 2nd Floor [place] [email or web address] documented as of this encounter Visit Diagnoses [...] documented as of this encounter Care Teams Transition Manager Relationship Specialty Start Date End Date Chavo Jack MD [address] [place] [address] [email or web address] PCP - General Internal Medicine 09/18/22 01/30/23 Keren Poon CNP 170 [facility], [address]nd [place] [address] [email or web address] PCP - General Family Medicine 01/31/23 Cash Fernandes MD [address] [place] [address] [email or web address] Gastroenterology 08/23/20 Seven Menchaca MD [address] [place] [address] [email or web address] Insurance Assigned Provider 08/04/22 08/03/23 Chavo Jack MD [address] [place] [address] [email or web address] Insurance Assigned Provider 08/03/23 05/04/24 Willi [place] MD [address] [place], [place] [address] [address] Rheumatology 02/04/24 Jose Thakur MD [address] [place] [address] [email or web address] Publicity Director Pulmonary Disease 03/17/24 Dana Rucker FNP [address] [place] [address], 2nd [place] [address] [email or web address] Nurse Practitioner Infectious Diseases 05/21/24 Jonathan Alvarez MD [address] [place] [address], [address] [address] [email or web address] Urology 05/14/23 Anival Borja MD [address] [place] [address], [address] [place] [address] [email or web address] Neurologist Neurology 01/04/23 Lyndsay Reynoso FNP [address] [place] [address] [email or web address] Nurse Practitioner Pain Medicine 05/27/22 Gutierrez Pittman MD [address] [place] [phone] Personnel Counselor Cardiology 05/27/24 documented as of this encounter Additional Source Comments The information contained in this document represents components of the legal health record. It is not the complete legal health record.[facility]
--- OUTSIDE RECORDS SUMMARY | 2024-07-28 12:12 | XMS_ITS | Encounter Summary ---
Author Organization [facility] Address [address] [place] [address] Care Team Providers Care College Or University Business Manager Name Role Phone Charly Saxena Primary Care Provider [phone] Cheryl Calderon MD Primary Care Provider [phone] Encounter Details Date Type Department Care Team (Late st Contact Info) Description 02/14/2017 Orders Only [facility] Rheumatology [address] [place] [address] Abel Fierro MD [address] [place] [address] Social History Tobacco Use Types Packs/Day Years [...] rheumatoid factor ALANINE AMINOTRANSFERASE (ALT), SERUM Routine 02/14/2017 2:31 PM EDT Rheumatoid arthritis involving multiple sites with positive rheumatoid factor ASPARTATE AMINOTRANSFERASE (AST), SERUM Routine 02/14/2017 2:31 [...] 9:13 PM EDT Narrative Resulting Agency Comment [id number] us Abel Fierro MD LAB SAME DAY RESULT Final Resul t Performing Organization Address [facility] Co de Phone Number [facility] [address] [place] [address] * ASPARTATE AMINOTRANSFERASE (AST), SERUM (02/14/2017 2:31 PM EDT) AST (SGOT) 27 10 - 35 U/L [facility] 02/14/2017 2:31 PM EDT 02/14/2017 9:13 PM EDT Narrative Resulting Agency Comment [id number] Abel Fierro MD LAB SAME DAY RESULT Final Resul t Performing Organization Address [facility] de Phone Number [facility] [address] [place] [address] * CREATININE WITH GLOMERULAR FILTRATION RATE, ESTIMATED (EGFR) (02/14/2017 2:31 PM EDT) Creatinine 0.80 0.50 - 0.99 mg/dL [facility] Comment: For patients >49 years of age, the reference limit for Creatinine is approximately 13% higher for people identified as -Nauruan. GFR 79 > OR = 60 mL/min/1. [...] needs for GFR calculation. Resulting Agency Comment [id number] us Abel Fierro MD LAB SAME DAY RESULT Final Resul t [facility] [address] [place] [address] * (ABNORMAL) CBC INCLUDES DIFFERENTIAL AND PLATELET [...] 9:13 PM EDT Narrative Resulting Agency Comment [id number] us Abel Fierro MD LAB SAME DAY RESULT Final Resul t [facility] [address] [place] [address] documented in this encounter Visit Diagnoses Diagnosis Rheumatoid arthritis involving multiple sites with positive rheumatoid factor (HCC) documented in this encounter Care Teams College [employer] Business Manager Relationship Specialty Start Date End Date Charly Saxena [facility] [address] [place] [address] PCP - General Internal Medicine 05/25/13 07/16/17 Cheryl Calderon MD [facility] Adult Medicine [address] [place] [address] PCP - General Internal Medicine 07/17/17 documented as of this encounter
--- OUTSIDE RECORDS SUMMARY | 2024-07-28 12:12 | XMS_ITS | Encounter Summary ---
Author Organization [facility] Address [address] [place] [address] Phone Care Team Providers Care Automation Developer Name Role Phone JessicaMattie oliveirasheryl Mccrackengh [facility] Primary Care Provider Cash Fernandes MD Unavailable [phone] Seven Menchaca MD Unavailable Chavo Jack MD Primary Care Provider Keren Poon [facility] Primary Care Provid er Chavo Jack MD Unavailable Willi Wells MD Unavailable Jose Thakur MD Unavailable Dana Rucker VACCINE CUSTOMER REPRESENTATIVE Unavailable Jonathan Alvarez MD Unavailable [phone] Anival Borja MD Unavailable [phone] Lyndsay Reynoso VACCINE CUSTOMER REPRESENTATIVE Unavailable [phone] Gutierrez Pittman MD Unavailable [phone] Encounter Details Date Type Department Care Team (Late st Contact Info) Description 07/14/2021 Ancillary Orders [facility],Outside Imaging [address] [place], [place] [id number] System, Provider Not In, [facility] [address] [address] Social History Tobacco Use Types Packs/Day Years [...] high school, GED, job training, learning the [place] language, technical skills, or developing parenting skills)? [...] your housing situation today? I have jo maritza 09/26/2020 How many times have you move [...] st Contact Info) Description 06/06/2024 Procedure Pass [facility], [address] [address] 07/28/2024 1:00 PM EDT Home Care Visit [facility] [address] [place] [address] Trice De Santiago LPN [address] [place] [address] 07/30/2024 3:30 PM EDT Office Visit [facility] [address] [place] [address] [place] [address] Keren Poon, GRANTS DIRECTOR [address] [facility], 2nd [place] [address] 08/04/2024 2:30 AM EDT [facility] [address] [place] [address] Orlando Mckeon RN [address] [place] [address] 08/11/2024 2:00 AM EDT Home Care Visit [facility] [address] [place] [address] Orlando Mckeon RN [address] [place] [address] 08/18/2024 1:30 AM EDT Home Care Visit [facility] [address] [place] [address] Orlando Mckeon RN [address] [place] [address] 08/25/2024 1:00 AM EDT Home Care Visit [facility] [address] [place] [address] Orlando Mckeon RN [address] [place] [address] 09/01/2024 12:30 AM EDT Appointment [facility] [address] [place], [place] [phone] Orlando Mckeon RN [address] [place] [address] 09/18/2024 2:30 PM EDT Office Visit [facility] Infectious Diseases [address] [place] [address] Dana Rucker FNP [address] [address] 11/26/2024 3:30 PM EDT Office Visit [facility] [address] [place] [address] [place] [address] Keren Poon, GRANTS DIRECTOR [address] [address] 12/11/2024 2:00 PM EDT Appointment [facility] [address] [place] [address] Keren Poon, GRANTS DIRECTOR [address] [address] 01/07/2025 2:30 PM EDT Office Visit [facility] [address] [place] [address] Jose Thakur MD [address] [place] [address] 06/03/2025 2:00 PM EST Office Visit [facility] [address] [place], [place] [address] Keren Poon, GRANTS DIRECTOR [address] [facility], 2[address] Floor [place] [address] documented as of this encounter Results * [...] Not In System PhD IMG OUTSIDE I ROSANNE W/OUT INTERPRETATION documented in this encounter Visit [...] EDT PHQ-2 Depression Total Score: 3 09/27/19 21 1:27 PM EDT documented as of this encounter Care Teams Automation Developer Relationship Specialty Start Date End Date Ita Pineda CNP [address] [place] [address] [email or web address] PCP - General Internal Medicine 08/19/20 09/17/22 Chavo Jack MD [address] [place] [address] PCP - General Internal Medicine 09/18/22 01/30/23 Cleve Keren ORI Glaser [address] [place] [address] [email or web address] PCP - General Family Medicine 01/31/23 Cash Fernandes MD [address] [place] [address] [email or web address] Gastroenterology 08/23/20 Seven Menchaca MD [address] [place] [address] Insurance Assigned Provider 08/04/22 08/03/23 Chavo Jack MD [address] [place] [address] [email or web address] Insurance Assigned Provider 08/03/23 05/04/24 Willi Wells MD [address] [place] [address] Rheumatology 02/04/24 Jose Thakur MD [address] [place] [address] [email or web address] Pulmonary Disease 03/17/24 Dana Rucker FNP [address] [address] [email or web address] Nurse Practitioner Infectious Diseases 05/21/24 Jonathan Alvarez MD [address] [place] [address] [email or web address] Urology 05/14/23 Anival Borja MD [address] [place] [address], [address] [place] [address] Neurologist Neurology 01/04/23 Lyndsay Reynoso FNP [address] [place] [address] [place] [address] [email or web address] Nurse Practitioner Pain Medicine 05/27/22 Gutierrez Pittman MD [address] [place] [address] Cement Contractor Cardiology 05/27/24 documented as of this encounter Additional Source Comments The information contained in this document represents components of the legal health record. It is not the complete legal health record.[facility]
--- OUTSIDE RECORDS SUMMARY | 2024-07-28 12:13 | XMS_ITS | Encounter Summary ---
Author Organization [facility] Address [address] [place] [address] Care Team Providers Care Obiee Lead Developer Name Role Phone Alberto Pacheco Primary Care Provider [phone] Charly Saxena Primary Care Provider [phone] Cheryl Calderon MD Primary Care Provider [phone] Encounter Details Date Type Department Care Team (Late st Contact Info) Description 12/06/2009 Orders Only [facility] Rheumatology [address] [place] [address] Abel Fierro MD [address] [place] [address] Social History Tobacco Use Types Packs/Day Years [...] RESULT Final Resul t Performing Organization Address City/State/[facility] Co de Phone Number [facility] [address] [place] [address] * (ABNORMAL) CBC 5 PART DIFF (12/06/2009) [...] RESULT Final Resul t Performing Organization Address [facility] de Phone Number [facility] [address] [place] [address] * ASPARTATE AMINOTRANSFERASE (AST), SERUM (12/06/2009) AST (SGOT) 18 10 - 35 U/L [facility] 12/06/2009 12/06/2009 9:4 5 PM EDT Abel Fierro MD LAB SAME DAY RESULT Final Resul t Performing Organization Address [facility] de Phone Number [facility] [address] [place] [address] * ALANINE AMINOTRANSFERASE (ALT), SERUM (12/06/2009) ALT (SGPT) 23 6 - 40 U/L [facility] 12/06/2009 12/06/2009 9:4 5 PM EDT Abel Fierro MD LAB SAME DAY RESULT Final Resul t Performing Organization Address [facility] de Phone Number [facility] [address] [place] [address] documented in this encounter Visit Diagnoses Diagnosis Rheumatoid arthritis(714.0) Rheumatoid arthritis documented in this encounter Care Teams Obiee Lead Developer Relationship Specialty Start Date End Date Alberto Pacheco [address] [place] [address] PCP - General 07/19/08 05/24/13 Charly Saxena [facility] [address] [place] [address] PCP - General Internal Medicine 05/25/13 07/16/17 Cheryl Calderon MD [facility] Medicine [address] [place] [address] PCP - General Internal Medicine 07/17/17 documented as of this encounter
--- OUTSIDE RECORDS SUMMARY | 2024-07-28 12:13 | XMS_ITS | Encounter Summary ---
Author Organization [facility] Address [address] [place] [address] Care Team Providers Care Homeopathic Doctor Name Role Phone Alberto Pacheco Primary Care Provider [phone] Charly Saxena Primary Care Provider [phone] Cheryl Calderon MD Primary Care Provider [phone] Encounter Details Date Type Department Care Team (Late st Contact Info) Description 02/20/2011 Orders Only [facility] Rheumatology [address] [place] [address] Abel Fierro MD [address] [place] [address] Social History Tobacco Use Types Packs/Day Years [...] 0.60 - 1.10 mg/dL [facility] Comment:{CREATININE {[id number]) GFR 82 > OR = 60 mL/min/1.7 3m2 [facility] Comment:{eGFR NON-AFR. AMERI CAN {[id number]) GFR () 96 > OR = 60 mL/min/1.7 3m2 [facility] Comment:{eGFR AMERIC AN {[id number]) 02/20/2011 11:2 4 AM EDT 02/20/2011 7:08 [...] needs for GFR calculation. Resulting Agency Comment [id number] us Abel Fierro MD LAB SAME DAY RESULT Final Resul t [facility] [address] [place] [address] * (ABNORMAL) CBC INCLUDES DIFFERENTIAL AND PLATELET COUNT (02/20/2011 11:24 AM EDT) WBC 7.8 3.8 - 10.8 Thousand/ uL [facility] Comment:{WHITE BLOOD CELL CO UNT {[id number]) RBC 5.43(H) 3.80 - 5.10 Million/u L [facility] Comment:{RED BLOOD CELL COUN T {[id number]) Hemoglobin 15.9(H) 11.7 - 15.5 g/dL [facility] Comment:{HEMOGLOBIN {[id number]) Hematocrit 48.3(H) 35.0 - 45.0 % [facility] Comment:{HEMATOCRIT {[id number]) MCV 89.0 80.0 - 100.0 fL [facility] Comment:{MCV {[id number]) MCH 29.4 27.0 - 33.0 pg [facility] Comment:{MCH {[id number]) MCHC 33.0 32.0 - 36.0 g/dL [facility] Comment:{MCHC {[id number]) RDW 14.3 11.0 - 15.0 % [facility] Comment:{RDW {[id number]) PLT 274 140 - 400 Thousand/ uL [facility] Comment:{PLATELET COUNT {[id number]) MPV 8.3 7.5 - 11.5 fL [facility] Comment:{MPV {[id number]) Neutrophils # 4930 1500 - 7800 cells/uL [facility] Comment:{ABSOLUTE NEUTROPHIL S {[id number]) Lymphocytes # 1919 850 - 3900 cells/uL [facility] Comment:{ABSOLUTE LYMPHOCYTE S {[id number]) Monocytes # 780 200 - 950 cells/uL [facility] Comment:{ABSOLUTE MONOCYTES {[id number]) Eosinophils # 125 15 - 500 cells/uL [facility] Comment:{ABSOLUTE EOSINOPHIL S {[id number]) Basophils # 47 0 - 200 cells/uL [facility] Comment:{ABSOLUTE BASOPHILS {[id number]) Neutrophils % 63.2 % [facility] Comment:{NEUTROPHILS {[id number]) Lymphocytes % 24.6 % [facility] Comment:{LYMPHOCYTES {[id number]) Monocytes % 10.0 % [facility] Comment:{MONOCYTES {[id number]) Eosinophils % 1.6 % [facility] Comment:{EOSINOPHILS {[id number]) Basophils % 0.6 % [facility] Comment:{BASOPHILS {[id number]) 02/20/2011 11:2 4 AM EDT 02/20/2011 7:08 PM EDT Narrative Resulting Agency Comment [id number] us Abel Fierro MD LAB SAME DAY RESULT Final Resul t Performing Organization Address City/[facility] Co de Phone Number [facility] [address] [place] [address] * ASPARTATE AMINOTRANSFERASE (AST), SERUM (02/20/2011 11:24 AM EDT) AST (SGOT) 23 10 - 35 U/L [facility] Comment:{AST {[id number]) 02/20/2011 11:2 4 AM EDT 02/20/2011 7:08 PM EDT Narrative Resulting Agency Comment [id number] us Abel Fierro MD LAB SAME DAY RESULT Final Resul t Performing Organization Address [facility] Co de Phone Number [facility] [address] [place] [address] * ALANINE AMINOTRANSFERASE (ALT), SERUM (02/20/2011 11:24 AM EDT) ALT (SGPT) 25 6 - 40 U/L [facility] Comment:{ALT {[id number]) 02/20/2011 11:2 4 AM EDT 02/20/2011 7:08 PM EDT Narrative Resulting Agency Comment [id number] us Abel Fierro MD LAB SAME DAY RESULT Final Resul t Performing Organization Address City/[facility] Co de Phone Number [facility] [address] [place] [address] documented in this encounter Visit Diagnoses Diagnosis Rheumatoid arthritis(714.0) Rheumatoid arthritis documented in this encounter Care Teams Homeopathic Doctor Relationship Specialty Start Date End Date Alberto Pacheco [address] [place] [address] PCP - General 07/19/08 05/24/13 Charly Saxena [facility] [address] [place] [address] PCP - General Internal Medicine 05/25/13 07/16/17 Cheryl Calderon MD [facility] Medicine [address] [place] [address] PCP - General Internal Medicine 07/17/17 documented as of this encounter
--- OUTSIDE RECORDS SUMMARY | 2024-07-28 12:13 | XMS_ITS | Encounter Summary ---
Author Organization [facility] Address [address] [place] [address] Care Team Providers Care Financial Solutions Advisor Name Role Phone Alberto Pacheco Primary Care Provider Charly Saxena Primary Care Provider [phone] Cheryl Calderon MD Primary Care Provider [phone] Encounter Details Date Type Department Care Team (Late st Contact Info) Description 05/13/2009 Orders Only [facility] Rheumatology [address] [place] [address] Abel Fierro MD [address] [place] [address] Social History Tobacco Use Types Packs/Day Years [...] MD LABORATORY Final Result [facility] [address] [place] [address] * SED RATE ESR (05/13/2009) ESR (ERYTHROCYTE SEDIMENTATION RATE) 19 0 - 30 MM/HR [facility] 05/13/2009 05/13/2009 8:0 1 PM EST us Abel Fierro MD LAB SAME DAY RESULT Final Resul t Performing Organization Address [facility] de Phone Number [facility] [address] [place] [address] * ALANINE AMINOTRANSFERASE (ALT), SERUM (05/13/2009) ALT (SGPT) 22 6 - 40 U/L [facility] 05/13/2009 05/13/2009 8:0 1 PM EST us Abel Fierro MD LAB SAME DAY RESULT Final Resul t Performing Organization Address [facility] Phone Number [facility] [address] [place] [address] * ASPARTATE AMINOTRANSFERASE (AST), SERUM (05/13/2009) AST (SGOT) 21 10 - 35 U/L [facility] 05/13/2009 05/13/2009 8:0 1 PM EST us Abel Fierro MD LAB SAME DAY RESULT Final Resul t Performing Organization Address [facility] Phone Number [facility] [address] [place] [address] * (ABNORMAL) CBC 5 PART DIFF (05/13/2009) [...] RESULT Final Resul t [facility] [address] [place] [address] documented in this encounter Visit Diagnoses Diagnosis Rheumatoid arthritis(714.0) Rheumatoid arthritis documented in this encounter Care Teams Financial Solutions Advisor Relationship Specialty Start Date End Date Alberto Pacheco [address] [place] [address] PCP - General 07/19/08 05/24/13 Charly Saxena [facility] [address] [place] [address] PCP - General Internal Medicine 05/25/13 07/16/17 Cheryl Calderon MD [facility] Adult Medicine [address] [place] [address] PCP - General Internal Medicine 07/17/17 documented as of this encounter
--- OUTSIDE RECORDS SUMMARY | 2024-07-28 12:13 | XMS_ITS | Encounter Summary ---
Author Organization [facility] Address [address] [place] [address] Care Team Providers Care Knife Cutter Name Role Phone Alberto Pacheco Primary Care Provider Charly Saxena Primary Care Provider [phone] Cheryl Calderon MD Primary Care Provider [phone] Reason for Visit * Reason Comments E-prescribing Refill Request Encounter Details Date Type Department Care Team (Late st Contact Info) Description 08/21/2010 Refill [facility] Rheumatology [address] [place] [address] Abel Fierro MD [address] [place] [address] E-prescribing Refill Request Social History Tobacco Use [...] on filedocumented in this encounter Care Teams Knife Cutter Relationship Specialty Start Date End Date Alberto Pacheco [address] [place] [address] PCP - General 07/19/08 05/24/13 Charly Saxena [facility] [address] [place] [address] PCP - General Internal Medicine 05/25/13 07/16/17 Cheryl Calderon MD [facility] Medicine [address] [place] [address] PCP - General Internal Medicine 07/17/17 documented as of this encounter
--- OUTSIDE RECORDS SUMMARY | 2024-07-28 12:13 | XMS_ITS | Encounter Summary ---
Author Organization [facility] Address [address] [place] [address] Care Team Providers Care Custodian Blood Bank Name Role Phone Alberto Pacheco Primary Care Provider [phone] Charly Saxena Primary Care Provider [phone] Cheryl Calderon MD Primary Care Provider [phone] Encounter Details Date Type Department Care Team (Late st Contact Info) Description 08/15/2011 Orders Only [facility] Rheumatology [address] [place] [address] Abel Fierro MD [address] [place] [address] Social History Tobacco Use Types Packs/Day Years [...] of this encounter Procedures * Due to [place] [employer] law, this organization might not be sharing negative HIV tests. Procedure Name Priority Date/Time Associated Diagnosis Comments C-REACTIVE PROTEIN (CRP) - INFLAMMATION Routine 08/15/2011 10:22 AM EDT Rheumatoid arthritis (HCC) ERYTHROCYTE SEDIMENTATION RATE (ESR) Routine 08/15/2011 10:22 AM EDT Rheumatoid arthritis ([facility]) CBC INCLUDES DIFFERENTIAL AND PLATELET COUNT Routine 08/15/2011 10:22 AM EDT Rheumatoid arthritis ([facility]) ALANINE AMINOTRANSFERASE (ALT), SERUM Routine 08/15/2011 10:22 AM EDT Rheumatoid arthritis ([facility]) ASPARTATE AMINOTRANSFERASE (AST), SERUM Routine 08/15/2011 10:22 AM EDT Rheumatoid arthritis ([facility]) CREATININE WITH GLOMERULAR FILTRATION RATE, ESTIMATED (EGFR) Routine 08/15/2011 10:22 AM EDT Rheumatoid arthritis ([facility]) documented in this encounter Results * Due to [place] [employer] law, this organization might not be sharing negative HIV tests. * ERYTHROCYTE SEDIMENTATION RATE (ESR)KUNAL (08/15/2011 10:22 AM EDT) Sedimentation Rate Rockegren (ESR) 6 < OR = 30 mm/h [facility] Comment:{SED RATE BY JONATHAN SYED {[id number]) 08/15/2011 10:2 2 AM EDT 08/15/2011 5:01 PM EDT Narrative Resulting Agency Comment [id number] us Abel Fierro MD LAB SAME DAY RESULT Final Resul t Performing Organization Address [facility] Co de Phone Number [facility] [address] [place] [address] * C-REACTIVE PROTEIN (CRP) - INFLAMMATION (08/15/2011 10:22 AM EDT) C reactive protein 0.15 <0.80 mg/dL [facility] Comment: {C-REACTIVE PROTEIN {[id number]) Please be advised that patients taking Carboxypenicillins may exhibit falsely decreased C-Reactive Protein levels due to an analytical interference in this assay. 08/15/2011 10:2 2 AM EDT 08/15/2011 5:01 PM EDT Narrative Resulting Agency Comment [id number] us Abel Fierro MD LABORATORY Final Result Performing Organization Address [facility] Co de Phone Number [facility] [address] [place] [address] * CREATININE WITH GLOMERULAR FILTRATION RATE, ESTIMATED (EGFR) (08/15/2011 10:22 AM EDT) Creatinine 0.87 0.50 - 1.05 mg/dL [facility] Comment: {CREATININE {[id number]) For patients >49 years of age, the reference limit for Creatinine is approximately 13% higher for people identified as -Nauruan. GFR 74 > OR = 60 mL/min/1. 73m2 [facility] Comment:{eGFR NON-AFR. AMERI CAN {[id number]) GFR () 86 > OR = 60 mL/min/1. 73m2 [facility] Comment:{eGFR AMERIC AN {[id number]) 08/15/2011 10:2 2 AM EDT 08/15/2011 5:01 [...] needs for GFR calculation. Resulting Agency Comment [id number] us Abel Fierro MD LAB SAME DAY RESULT Final Resul t [facility] [address] [place] [address] * (ABNORMAL) CBC INCLUDES DIFFERENTIAL AND PLATELET COUNT (08/15/2011 10:22 AM EDT) WBC 7.5 3.8 - 10.8 Thousand/ uL [facility] Comment:{WHITE BLOOD CELL CO UNT {[id number]) RBC 5.26(H) 3.80 - 5.10 Million/u L [facility] Comment:{RED BLOOD CELL COUN T {[id number]) Hemoglobin 14.6 11.7 - 15.5 g/dL [facility] Comment:{HEMOGLOBIN {[id number]) Hematocrit 44.5 35.0 - 45.0 % [facility] Comment:{HEMATOCRIT {[id number]) MCV 84.7 80.0 - 100.0 fL [facility] Comment:{MCV {[id number]) MCH 27.8 27.0 - 33.0 pg [facility] Comment:{MCH {[id number]) MCHC 32.8 32.0 - 36.0 g/dL [facility] Comment:{MCHC {[id number]) RDW 14.8 11.0 - 15.0 % [facility] Comment:{RDW {[id number]) PLT 238 140 - 400 Thousand/ uL [facility] Comment:{PLATELET COUNT {[id number]) MPV 8.4 7.5 - 11.5 fL [facility] Comment:{MPV {[id number]) Neutrophils # 4643 1500 - 7800 cells/uL [facility] Comment:{ABSOLUTE NEUTROPHIL S {[id number]) Lymphocytes # 2265 850 - 3900 cells/uL [facility] Comment:{ABSOLUTE LYMPHOCYTE S {[id number]) Monocytes # 360 200 - 950 cells/uL [facility] Comment:{ABSOLUTE MONOCYTES {[id number]) Eosinophils # 203 15 - 500 cells/uL [facility] Comment:{ABSOLUTE EOSINOPHIL S {[id number]) Basophils # 30 0 - 200 cells/uL [facility] Comment:{ABSOLUTE BASOPHILS {[id number]) Neutrophils % 61.9 % [facility] Comment:{NEUTROPHILS {[id number]) Lymphocytes % 30.2 % [facility] Comment:{LYMPHOCYTES {[id number]) Monocytes % 4.8 % [facility] Comment:{MONOCYTES {[id number]) Eosinophils % 2.7 % [facility] Comment:{EOSINOPHILS {[id number]) Basophils % 0.4 % [facility] Comment:{BASOPHILS {[id number]) 08/15/2011 10:2 2 AM EDT 08/15/2011 5:01 PM EDT Narrative Resulting Agency Comment [id number] us Abel Fierro MD LAB SAME DAY RESULT Final Resul t Performing Organization Address City/[facility] Co de Phone Number [facility] [address] [place] [address] * ALANINE AMINOTRANSFERASE (ALT), SERUM (08/15/2011 10:22 AM EDT) ALT (SGPT) 25 6 - 40 U/L [facility] Comment:{ALT {[id number]) 08/15/2011 10:2 2 AM EDT 08/15/2011 5:01 PM EDT Narrative Resulting Agency Comment [id number] us Abel Fierro MD LAB SAME DAY RESULT Final Resul t Performing Organization Address City/[facility]/ZIP Co de Phone Number [facility] [address] [place] [address] * ASPARTATE AMINOTRANSFERASE (AST), SERUM (08/15/2011 10:22 AM EDT) AST (SGOT) 25 10 - 35 U/L [facility] Comment:{AST {[id number]) 08/15/2011 10:2 2 AM EDT 08/15/2011 5:01 PM EDT Narrative Resulting Agency Comment [id number] us Abel Fierro MD LAB SAME DAY RESULT Final Resul t [facility] [address] [place] [address] documented in this encounter Visit Diagnoses Diagnosis Rheumatoid arthritis(714.0) Rheumatoid arthritis documented in this encounter Care Teams Custodian Blood Bank Relationship Specialty Start Date End Date Alberto Pacheco [address] [place] [address] PCP - General 07/19/08 05/24/13 Charly Saxena [facility] [address] [place] [address] PCP - General Internal Medicine 05/25/13 07/16/17 Cheryl Calderon MD [facility] Medicine [address] [place] [address] PCP - General Internal Medicine 07/17/17 documented as of this encounter
--- OUTSIDE RECORDS SUMMARY | 2024-07-28 12:13 | XMS_ITS | Encounter Summary ---
Author Organization [facility] Address [address] [place] [address] Care Team Providers Care Product Marketing Director Name Role Phone Alberto Pacheco Primary Care Provider [phone] Charly Saxena Primary Care Provider [phone] Cheryl Calderon MD Primary Care Provider [phone] Encounter Details Date Type Department Care Team (Late st Contact Info) Description 08/21/[address] [facility] Rheumatology [address] [place] [address] Abel Fierro MD [address] [place] [address] Social History Tobacco Use Types Packs/Day Years [...] RESULT Final Resul t Performing Organization Address [facility] Co de Phone Number [facility] [address] [place] [address] * ALANINE AMINOTRANSFERASE (ALT), SERUM (08/21/2010) ALT (SGPT) 37 6 - 40 U/L [facility] 08/21/2010 08/21/2010 9:0 1 PM EDT us Abel Fierro MD LAB SAME DAY RESULT Final Resul t Performing Organization Address City/[facility] Co de Phone Number [facility] [address] [place] [address] * ASPARTATE AMINOTRANSFERASE (AST), SERUM (08/21/2010) AST (SGOT) 27 10 - 35 U/L [facility] 08/21/2010 08/21/2010 9:0 1 PM EDT us Abel Fierro MD LAB SAME DAY RESULT Final Resul t Performing Organization Address City/[facility]/ZIP Co de Phone Number [facility] [address] [place] [address] * (ABNORMAL) CBC 5 PART DIFF (08/21/2010) [...] RESULT Final Resul t Performing Organization Address City/[facility]/ZIP Co de Phone Number [facility] [address] [place] [address] documented in this encounter Visit Diagnoses Diagnosis Rheumatoid arthritis(714.0) Rheumatoid arthritis documented in this encounter Care Teams Product Marketing Director Relationship Specialty Start Date End Date Alberto Pacheco [address] [place] [address] PCP - General 07/19/08 05/24/13 Charly Saxena [facility] [address] [place] [address] PCP - General Internal Medicine 05/25/13 07/16/17 Cheryl Calderon MD [facility] Medicine [address] [place] [address] PCP - General Internal Medicine 07/17/17 documented as of this encounter
--- OUTSIDE RECORDS SUMMARY | 2024-07-28 12:13 | XMS_ITS | Encounter Summary ---
Author Organization [facility] Address [address] [place] [address] Care Team Providers Care Cellular Equipment Installer Name Role Phone Alberto Pacheco Primary Care Provider [phone] Charly Saxena Primary Care Provider [phone] Cheryl Calderon MD Primary Care Provider [phone] Reason for Visit * Reason Comments E-prescribing Refill Request Encounter Details Date Type Department Care Team ([facility] st Contact Info) Description 10/20/2011 Refill [facility] Rheumatology [address] [place] [address] Abel Fierro MD [address] [place] [address] E-prescribing Refill Request Social History Tobacco Use [...] on filedocumented in this encounter Care Teams Cellular Equipment Installer Relationship Specialty Start Date End Date Alberto Pacheco [address] [place] [address] PCP - General 07/19/08 05/24/13 Charly Saxena [facility] [address] [place] [address] PCP - General Internal Medicine 05/25/13 07/16/17 Cheryl Calderon MD [facility] Medicine [address] [place] [address] PCP - General Internal Medicine 07/17/17 documented as of this encounter
--- OUTSIDE RECORDS SUMMARY | 2024-07-28 12:13 | XMS_ITS | Encounter Summary ---
Author Organization [facility] Address [address] [place] [address] Care Team Providers Care Digital Forensics Investigator Name Role Phone Alberto Pacheco Primary Care Provider [phone] Charly Saxena Primary Care Provider [phone] Cheryl Calderon MD Primary Care Provider Encounter Details Date Type Department Care Team (Late st Contact Info) Description 12/26/2010 Orders Only [facility] Rheumatology [address] [place] [address] Abel Fierro MD [address] [place] [address] Social History Tobacco Use Types Packs/Day Years [...] [facility] Comment:{WHITE BLOOD CELL CO UNT {[id number]) RBC 5.17(H) 3.80 - 5.10 Million/u L [facility] Comment:{RED BLOOD CELL COUN T {[id number]) Hemoglobin 15.0 11.7 - 15.5 g/dL [facility] Comment:{HEMOGLOBIN {[id number]) Hematocrit 46.0(H) 35.0 - 45.0 % [facility] Comment:{HEMATOCRIT {[id number]) MCV 89.1 80.0 - 100.0 fL [facility] Comment:{MCV {[id number]) MCH 29.0 27.0 - 33.0 pg [facility] Comment:{MCH {[id number]) MCHC 32.5 32.0 - 36.0 g/dL [facility] Comment:{MCHC {[id number]) RDW 16.1(H) 11.0 - 15.0 % [facility] Comment:{RDW {[id number]) PLT 300 140 - 400 Thousand/ uL [facility] Comment:{PLATELET COUNT {[id number]) MPV 7.6 7.5 - 11.5 fL [facility] Comment:{MPV {[id number]) Neutrophils # 7707 1500 - 7800 cells/uL [facility] Comment:{ABSOLUTE NEUTROPHIL S {[id number]) Lymphocytes # 2163 850 - 3900 cells/uL [facility] Comment:{ABSOLUTE LYMPHOCYTE S {[id number]) Monocytes # 452 200 - 950 cells/uL [facility] Comment:{ABSOLUTE MONOCYTES {[id number]) Eosinophils # 147 15 - 500 cells/uL [facility] Comment:{ABSOLUTE EOSINOPHIL S {[id number]) Basophils # 32 0 - 200 cells/uL [facility] Comment:{ABSOLUTE BASOPHILS {[id number]) Neutrophils % 73.4 % [facility] Comment:{NEUTROPHILS {[id number]) Lymphocytes % 20.6 % [facility] Comment:{LYMPHOCYTES {[id number]) Monocytes % 4.3 % [facility] Comment:{MONOCYTES {[id number]) Eosinophils % 1.4 % [facility] Comment:{EOSINOPHILS {[id number]) Basophils % 0.3 % [facility] Comment:{BASOPHILS {[id number]) 12/26/2010 9:49 AM EDT 12/27/2010 12:33 AM EDT Narrative Resulting Agency Comment [id number] us Abel Fierro MD LAB SAME DAY RESULT Final Resul t Performing Organization Address [facility] Co de Phone Number [facility] [address] [place] [address] * ALANINE AMINOTRANSFERASE (ALT), SERUM (12/26/2010 9:49 AM EDT) ALT (SGPT) 16 6 - 40 U/L [facility] Comment:{ALT {[id number]) 12/26/2010 9:49 AM EDT 12/27/2010 12:33 AM EDT Narrative Resulting Agency Comment [id number] us Abel Fierro MD LAB SAME DAY RESULT Final Resul t Performing Organization Address City/[facility] Co de Phone Number [facility] [address] [place] [address] * ASPARTATE AMINOTRANSFERASE (AST), SERUM (12/26/2010 9:49 AM EDT) AST (SGOT) 16 10 - 35 U/L [facility] Comment:{AST {[id number]) 12/26/2010 9:4 9 AM EDT 12/27/2010 12:33 AM EDT Narrative Resulting Agency Comment [id number] us Abel Fierro MD LAB SAME DAY RESULT Final Resul t Performing Organization Address [facility] Co de Phone Number [facility] [address] [place] [address] * CREATININE WITH GLOMERULAR FILTRATION RATE, ESTIMATED (EGFR) (12/26/2010 9:49 AM EDT) Creatinine 0.86 0.60 - 1.10 mg/dL [facility] Comment:{CREATININE {[id number]) GFR 76 > OR = 60 mL/min/1.7 3m2 [facility] Comment:{eGFR NON-AFR. AMERI CAN {[id number]) GFR () 88 > OR = 60 mL/min/1.7 3m2 [facility] Comment:{eGFR AMERIC AN {[id number]) 12/26/2010 9:49 AM EDT 12/27/2010 12:33 AM [...] RESULT Final Resul t Performing Organization Address City/[facility] Co de Phone Number [facility] [address] [place] [address] documented in this encounter Visit Diagnoses Diagnosis Rheumatoid arthritis(714.0) Rheumatoid arthritis documented in this encounter Care Teams Digital Forensics Investigator Relationship Specialty Start Date End Date Alberto Pacheco [address] [place] [address] PCP - General 07/19/08 05/24/13 Charly Saxena [facility] [address] [place] [address] PCP - General Internal Medicine 05/25/13 07/16/17 Cheryl Calderon MD [facility] Medicine [address] [place] [address] PCP - General Internal Medicine 07/17/17 documented as of this encounter
--- OUTSIDE RECORDS SUMMARY | 2024-07-28 12:13 | XMS_ITS | Encounter Summary ---
Author Organization [facility] Address [address] [place] [address] Care Team Providers Care Dining Chair Seat Cushion Trimmer Name Role Phone Alberto Pacheco Primary Care Provider [phone] Charly Saxena Primary Care Provider [phone] Cheryl Calderon MD Primary Care Provider [phone] Encounter Details Date Type Department Care Team (Late st Contact Info) Description 01/23/2010 Orders Only [facility] Rheumatology [address] [place] [address] Abel Fierro MD [address] [place] [address] Social History Tobacco Use Types Packs/Day Years [...] de Phone Number [facility] [address] [place] [address] * (ABNORMAL) C-REACTIVE PROTEIN (CRP), QUANTITATIVE, SERUM INFLAMMATION (01/23/2010) Pathologist [facility] C REACTIVE PROTEIN (CRP) 1.5(H) 0 - 0.7 MG/DL [facility] 01/23/2010 01/23/2010 9:1 6 PM EDT Abel Fierro MD LABORATORY Final Result Performing Organization Address City/[facility]/ZIP Co de Phone Number [facility] [address] [place] [address] * CREATININE WITH GLOMERULAR FILTRATION RATE, ESTIMATED [...] RESULT Final Resul t [facility] [address] [place] [address] * (ABNORMAL) CBC 5 PART DIFF (01/23/2010) [...] Resul t Performing Organization Address [facility] de Phone Number [facility] [address] [place] [address] * ASPARTATE AMINOTRANSFERASE (AST), SERUM (01/23/2010) AST (SGOT) 23 10 - 35 U/L [facility] 01/23/2010 01/23/2010 9:1 6 PM EDT us Abel Fierro MD LAB SAME DAY RESULT Final Resul t Performing Organization Address [facility] de Phone Number [facility] [address] [place] [address] * ALANINE AMINOTRANSFERASE (ALT), SERUM (01/23/2010) ALT (SGPT) 26 6 - 40 U/L [facility] 01/23/2010 01/23/2010 9:1 6 PM EDT us Abel Fierro MD LAB SAME DAY RESULT Final Resul t Performing Organization Address [facility] de Phone Number [facility] [address] [place] [address] documented in this encounter Visit Diagnoses Diagnosis Rheumatoid arthritis(714.0)- Primary Rheumatoid arthritis documented in this encounter Care Teams Dining Chair Seat Cushion Trimmer Relationship Specialty Start Date End Date Alberto Pacheco [address] [place] [address] PCP - General 07/19/08 05/24/13 Charly Saxena [facility] [address] [place] [address] PCP - General Internal Medicine 05/25/13 07/16/17 Cheryl Calderon MD [facility] Medicine [address] [place] [address] PCP - General Internal Medicine 07/17/17 documented as of this encounter
--- OUTSIDE RECORDS SUMMARY | 2024-07-28 12:13 | XMS_ITS | Encounter Summary ---
Author Organization [facility] Address [address] [place] [address] Care Team Providers Care Education Associate Name Role Phone Alberto Pacheco Primary Care Provider [phone] Charly Saxena Primary Care Provider [phone] Cheryl Calderon MD Primary Care Provider [phone] Encounter Details Date Type Department Care Team (Late st Contact Info) Description 04/14/[address] [facility] Rheumatology [address] [place] [address] Deepti Estes GNP Social History Tobacco Use [...] of this encounter Procedures * Due to [place] state law, this organization might not be [...] in this encounter Results * Due to [place] state law, this organization might not be [...] precise needs for GFR calculation. Deepti Estes [facility] LAB SAME DAY RESULT Elana l Result Performing Organization Address [facility] de Phone Number [facility] [address] [place] [address] * ALANINE AMINOTRANSFERASE (ALT), SERUM (04/14/2010) ALT (SGPT) 28 6 - 40 U/L [facility] 04/14/2010 04/14/2010 11: 35 PM EST Deepti Estes [facility] LAB SAME DAY RESULT Elana l Result Performing Organization Address [facility] Co de Phone Number [facility] [address] [place] [address] * ASPARTATE AMINOTRANSFERASE (AST), SERUM (04/14/2010) AST (SGOT) 24 10 - 35 U/L [facility] 04/14/2010 04/14/2010 11: 35 PM EST Deepti Estes [facility] LAB SAME DAY RESULT Elana l Result [facility] [address] [place] [address] * (ABNORMAL) CBC 5 PART DIFF (04/14/2010) [...] 04/14/2010 11: 35 PM EST Deepti Estes [facility] LAB SAME DAY RESULT Elana l Result [facility] [address] [place] [address] documented in this encounter Visit Diagnoses Diagnosis Rheumatoid arthritis(714.0) Rheumatoid arthritis documented in this encounter Care Teams Education Associate Relationship Specialty Start Date End Date Alberto Pacheco [address] [place] [address] PCP - General 07/19/08 05/24/13 Charly Saxena [facility] [place] [address] PCP - General Internal Medicine 05/25/13 07/16/17 Cheryl Calderon MD [facility] Medicine [address] [place] [address] PCP - General Internal Medicine 07/17/17 documented as of this encounter
--- OUTSIDE RECORDS SUMMARY | 2024-07-28 12:13 | XMS_ITS | Encounter Summary ---
Author Organization Formerly [facility] Address [address] [place] [address] Phone Care Team Providers Care Transition Coach Name Role Phone Cash Fernandes MD Unavailable [phone] Keren Poon [facility] Primary Care Provid er Willi Wells MD Unavailable Jose Thakur MD Unavailable Dana Rucker ASSOCIATE FIELD SERVICE ENGINEER Unavailable Jonathan Alvarez MD Unavailable [phone] Anival Borja MD Unavailable Lyndsay Reynoso ASSOCIATE FIELD SERVICE ENGINEER Unavailable Gutierrez Pittman MD Unavailable [phone] Encounter Details Date Type Department Care Team (Late st Contact Info) Description 05/13/2024 Procedure Pass [facility] Endoscopy Admitting Dept Virtual Department [address] [place] [address] Social History Tobacco Use Types Packs/Day Years [...] st Contact Info) Description 06/06/2024 Procedure Pass [address] [address] 07/28/2024 1:00 PM EDT [facility] [address] [place] [address] Trice De Santiago LPN [address] [place] [address] 07/30/2024 3:30 PM EDT Office Visit [facility] [address] [place] [address] [place] [address] Keren Poon, CAMOUFLAGE ASSEMBLER [address] [place] [address], 2nd [place] [address] 08/04/2024 2:30 AM EDT [facility] [address] [place] [address] Orlando Mckeon RN [address] [place] [address] 08/11/2024 2:00 AM EDT [facility] [address] [place] [address] Orlando Mckeon RN [address] [place] [address] 08/18/2024 1:30 AM EDT [facility] [address] [place] [phone] Orlando Mckeon RN [address] [place] [address] 08/25/2024 1:00 AM EDT Home Care Visit [facility] [address] [place] [address] Orlando Mckeon RN [address] [place] [address] 09/01/2024 12:30 AM EDT Appointment [facility] [address] [place] [address] Orlando Mckeon RN [address] [place] [address] 09/18/2024 2:30 PM EDT Office Visit [facility] Infectious Diseases [address] [place] [address] Dana Rucker, DIVYA [address] [address] 11/26/2024 3:30 PM EDT Office Visit [facility] [address] [place] [address] [place] [address] Keren Poon, CAMOUFLAGE ASSEMBLER [address] [address] 12/11/2024 2:00 PM EDT Appointment [facility] [address] [place] [address] Keren Poon, ORI [address] [address] [email or web address] 01/07/2025 2:30 PM EDT Office Visit [facility] [address] [place] [address] Jose Thakur MD [address] [place] [address] 06/03/2025 2:00 PM EST Office Visit [facility] [address] [place], [place] [address] [place] [address] Keren Poon CNP [address] [place] [address], [address] [place] [address] [email or web address] documented as of this encounter Visit Diagnoses [...] as of this encounter Care Teams Transition Coach Relationship Specialty Start Date End Date Keren Poon CNP [address] [place] [address], [address] [place] [address] PCP - General Family Medicine 01/31/23 Cash Fernandes MD [address] [place] [address] Gastroenterology 08/23/20 Willi Wells MD [address] [place] [address] 304_[place] [address] Rheumatology 02/04/24 Jose Thakur MD [address] [place] [address] Commercial Lending Vice President Pulmonary Disease 03/17/24 Dana Rucker FNP 15 [facility], 2nd [place] [address] Nurse Practitioner Infectious Diseases 05/21/24 Jonathan Alvarez MD [address] [place] [address], [address] [place] [address] Urology 05/14/23 Anival Borja MD [address] [place] [address], [address] [place] [address] Neurologist Neurology 01/04/23 Lyndsay Reynoso FNP [address] [place] [address] [email or web address] Nurse Practitioner Pain Medicine 05/27/22 Gutierrez Pittman MD [address] [place] [address] Siene Maker Cardiology 05/27/24 documented as of this encounter Additional Source Comments The information contained in this document represents components of the legal health record. It is not the complete legal health record.Formerly [facility]
--- OUTSIDE RECORDS SUMMARY | 2024-07-28 12:13 | XMS_ITS | Encounter Summary ---
Author Organization [facility] Address [address] [place] [address] Care Team Providers Care Academic Services Professional Name Role Phone Alberto Pacheco Primary Care Provider Charly Saxena Primary Care Provider [phone] Cheryl Calderon MD Primary Care Provider [phone] Reason for Visit * Reason Comments E-prescribing Refill Request Encounter Details Date Type Department Care Team (Late st Contact Info) Description 02/05/2012 Refill [facility] Rheumatology [address] [place] [address] Abel Fierro MD [address] [place] [address] E-prescribing Refill Request Social History Tobacco Use [...] on filedocumented in this encounter Care Teams Academic Services Professional Relationship Specialty Start Date End Date Alberto Pacheco [address] [place] [phone] PCP - General 07/19/08 05/24/13 Charly Saxena [facility] [address] [place] [address] PCP - General Internal Medicine 05/25/13 07/16/17 Cheryl Calderon MD [facility] [address] [place] [address] PCP - General Internal Medicine 07/17/17 documented as of this encounter
--- OUTSIDE RECORDS SUMMARY | 2024-07-28 12:13 | XMS_ITS | Encounter Summary ---
Author Organization [facility] Address [address] [place] [address] Care Team Providers Care Pediatric Cardiologist Name Role Phone Alberto Pachceo Primary Care Provider [phone] Charly Saxena Primary Care Provider [phone] Cheryl Calderon MD Primary Care Provider [phone] Encounter Details Date Type Department Care Team (Late st Contact Info) Description 05/29/2010 Orders Only [facility] Rheumatology [address] [place] [address] Abel Fierro MD 5 [place] [address] Social History Tobacco Use Types Packs/Day Years [...] Organization Address City/[facility] Co de Phone Number [facility] [address] [place] [address] * C-REACTIVE PROTEIN (CRP), QUANTITATIVE, SERUM INFLAMMATION (05/29/2010) Pathologist [facility] C REACTIVE PROTEIN (CRP) 0.2 0 - 0.7 MG/DL [facility] 05/29/2010 05/29/2010 8:2 8 PM EST Abel Fierro MD LABORATORY Final Result Performing Organization Address [facility] Co de Phone Number [facility] [address] [place] [address] * CREATININE WITH GLOMERULAR FILTRATION RATE, ESTIMATED [...] RESULT Final Resul t [facility] [address] [place] [address] * (ABNORMAL) CBC 5 PART DIFF (05/29/2010) [...] Organization Address City/[facility] Co de Phone Number [facility] [address] [place] [address] * ASPARTATE AMINOTRANSFERASE (AST), SERUM (05/29/2010) AST (SGOT) 21 10 - 35 U/L [facility] 05/29/2010 05/29/2010 8:2 8 PM EST us Abel Fierro MD LAB SAME DAY RESULT Final Resul t Performing Organization Address [facility] Co de Phone Number [facility] [address] [place] [address] * ALANINE AMINOTRANSFERASE (ALT), SERUM (05/29/2010) ALT (SGPT) 27 6 - 40 U/L [facility] 05/29/2010 05/29/2010 8:2 8 PM EST us Abel Fierro MD LAB SAME DAY RESULT Final Resul t Performing Organization Address [facility] de Phone Number [facility] [address] [place] [address] documented in this encounter Visit Diagnoses Diagnosis Rheumatoid arthritis(714.0) Rheumatoid arthritis documented in this encounter Care Teams Pediatric Cardiologist Relationship Specialty Start Date End Date Alberto Pacheco [address] [place] [address] PCP - General 07/19/08 05/24/13 Charly Saxena [facility] [place] [address] PCP - General Internal Medicine 05/25/13 07/16/17 Cheryl Calderon MD [facility] Medicine [address] [place] [address] PCP - General Internal Medicine 07/17/17 documented as of this encounter
--- OUTSIDE RECORDS SUMMARY | 2024-07-28 12:13 | XMS_ITS | Encounter Summary ---
Author Organization [facility] Address [address] [place] [address] Phone Care Team Providers Care Epic Analyst Name Role Phone Cash Fernandes MD Unavailable [phone] Keren Poon [facility] Primary Care Provid er Chavo Jack MD Unavailable Willi Wells MD Unavailable Jose Thakur MD Unavailable Dana Rucker CHOP SAW OPERATOR Unavailable [phone] Jonathan Alvarez MD Unavailable [phone] Anival Borja MD Unavailable [phone] Lyndsay Reynoso CHOP SAW OPERATOR Unavailable Gutierrez Pittman MD Unavailable [phone] Encounter Details Date Type Department Care Team (Late st Contact Info) Description 03/17/2024 Procedure Pass [facility], Ct Scan - [address] [address] Social History Tobacco Use Types Packs/Day Years [...] Description 06/06/2024 Procedure Pass [facility], [address] [address] 07/28/2024 1:00 PM EDT [facility] [address] [place] [phone] Trice De Santiago LPN [address] [place] [address] [email or web address] 07/30/2024 3:30 PM EDT Office Visit [facility] [address] [place] [address] Keren Poon, HEALTH EDUCATOR [address] [place] [address], 2nd [place] [address] [email or web address] 08/04/2024 2:30 AM EDT [facility] [address] [place] [address] Orlando Mckeon RN [address] [place] [address] [email or web address] 08/11/2024 2:00 AM EDT Home Care Visit [facility] [address] [place] [address] Orlando Mckeon RN [address] [place] [address] [email or web address] 08/18/2024 1:30 AM EDT [facility] [address] [place] [phone] Orlando Mckeon RN [address] [place] [address] [email or web address] 08/25/2024 1:00 AM EDT Home Care Visit [facility] [address] [place], [place] [phone] Orlando Mckeon RN [address] [place] [address] 09/01/2024 12:30 AM EDT Appointment [facility] [address] [place], [place] [phone] Orlando Mckeon RN [address] [place] [address] 09/18/2024 2:30 PM EDT Office Visit [facility] Infectious Diseases [address] [place] [address] Dana Rucker FNP [address] [address] 11/26/2024 3:30 PM EDT Office Visit [facility] [address] [place] [address] Keren Poon, ORI [address] [address] 12/11/2024 2:00 PM EDT Appointment [facility] 30 [place] [address] Keren Poon, HEALTH EDUCATOR [address] [address] 01/07/2025 2:30 PM EDT Office Visit [facility] All[facility] Medicine [address] [place] [address] Jose Thakur MD 30 [place] [address] [email or web address] 06/03/2025 2:00 PM EST Office Visit [facility] [address] [place] [address] Dr [place] [address] Keren Poon CNP [address] [place] [address], [address] [place] [address] [email or web address] documented as of this encounter Visit Diagnoses [...] documented as of this encounter Care Teams Epic Analyst Relationship Specialty Start Date End Date Keren Poon CNP [address] [place], [place] [address], [place] [address] [email or web address] PCP - General Family Medicine 01/31/23 Cash Fernandes MD [address] [place] [phone] Gastroenterology 08/23/20 Chavo Jack MD [address] [place] [address] [email or web address] Insurance Assigned Provider 08/03/23 05/04/24 Willi Wells MD [address] [place] [address] [facility] 304_[place] [address] Rheumatology 02/04/24 Jose Thakur MD [address] [place] [address] President Educational Institution Pulmonary Disease 03/17/24 Dana Rucker FNP [address] [place] [address], 2nd [place] [address] [email or web address] Nurse Practitioner Infectious Diseases 05/21/24 Jonathan Alvarez MD [address] [place] [address], [address] [place] [address] [email or web address] Urology 05/14/23 Anival Borja MD [address] [place] [address], [address] [place] [address] Neurologist Neurology 01/04/23 Lyndsay Reynoso FNP [address] [place] [address] [email or web address] Nurse Practitioner Pain Medicine 05/27/22 Gutierrez Pittman MD [address] [place] [address] Sheet Metal Helper Cardiology 05/27/24 documented as of this encounter Additional Source Comments The information contained in this document represents components of the legal health record. It is not the complete legal health record.[facility]
--- OUTSIDE RECORDS SUMMARY | 2024-07-28 12:13 | XMS_ITS | Encounter Summary ---
Author Organization [facility] Address [address] [place] [address] Care Team Providers Care Brush Trimming Machine Setter Name Role Phone Alberto Pacheco Primary Care Provider [phone] Charly Saxena Primary Care Provider [phone] Cheryl Calderon MD Primary Care Provider [phone] Reason for Visit * Reason Comments E-prescribing Refill Request Encounter Details Date Type Department Care Team (Late st Contact Info) Description 06/16/2011 Refill [facility] Rheumatology [address] [place] [address] Abel Fierro MD [address] [place] [address] E-prescribing Refill Request Social History Tobacco Use [...] her cruise. xc: Alberto Pacheco MD 28 [facility] Next OV: No future appointments. Pertinent lab [...] on filedocumented in this encounter Care Teams Brush Trimming Machine Setter Relationship Specialty Start Date End Date Alberto Pacheco [address] [place] [phone] PCP - General 07/19/08 05/24/13 Charly Saxena [facility] [address] [place] [address] PCP - General Internal Medicine 05/25/13 07/16/17 Cheryl Calderon MD [facility] Adult Medicine [address] [place] [address] PCP - General Internal Medicine 07/17/17 documented as of this encounter
--- OUTSIDE RECORDS SUMMARY | 2024-07-28 12:13 | XMS_ITS | Encounter Summary ---
Author Organization [facility] Address [address] [place] [address] Care Team Providers Care Gas Turbine Powerplant Mechanic Helper Name Role Phone Chreyl Calderon MD Primary Care Provider [phone] Encounter Details Date Type Department Care Team (Late st Contact Info) Description 02/16/2019 Orders Only [facility]. Rheumatology [address] [place] [phone] Melanie Aguirre MD 5 [place] [address] Social History Tobacco Use Types Packs/Day Years [...] sites with positive rheumatoid factor VENIPUNCTURE Routine 02/16/2019 2:04 PM EDT Rheumatoid arthritis involving multiple sites with positive rheumatoid factor CBC INCLUDES DIFFERENTIAL AND PLATELET COUNT Routine 02/16/2019 2:04 PM EDT Rheumatoid arthritis involving multiple sites with positive rheumatoid factor COMPREHENSIVE METABOLIC PANEL WITH GFR Routine 02/16/2019 [...] higher for people identified as -[place] Citizen. EGFR 93 > OR = 60 mL/min/1 [...] needs for GFR calculation. Resulting Agency Comment [id number] us Melanie Aguirre MD LABORATORY Final Result Performing Organization Address [facility]/ZIP Co de Phone Number [facility] [address] [place] [address] * (ABNORMAL) C-REACTIVE PROTEIN (CRP) - INFLAMMATION (02/16/2019 2:04 PM EDT) C reactive protein 79.2(H) <8.0 mg/L [facility] 02/16/2019 2:04 PM EDT 02/16/2019 11:45 PM EDT Narrative Resulting Agency Comment [id number] us Melanie Aguirre MD LABORATORY Final Result Performing Organization Address [facility] Co de Phone Number [facility] [address] [place] [address] * (ABNORMAL) CBC INCLUDES DIFFERENTIAL AND PLATELET [...] 11:45 PM EDT Narrative Resulting Agency Comment [id number] us Melanie Aguirre MD LAB SAME DAY RESULT Final Result Performing Organization Address City/[facility] Co de Phone Number [facility] [address] [place] [address] * (ABNORMAL) ERYTHROCYTE SEDIMENTATION RATE (ESR), [place] (02/16/2019 2:04 PM EDT) Sedimentation Rate [place] (ESR) 72(H) < OR = 30 mm/h [facility] 02/16/2019 2:04 PM EDT 02/16/2019 11:45 PM EDT Narrative Resulting Agency Comment [id number] us Melanie Aguirre MD LAB SAME DAY RESULT Final Result Performing Organization Address City/[facility]/ZIP Co de Phone Number [facility] [address] [place] [address] documented in this encounter Visit Diagnoses Diagnosis Rheumatoid arthritis involving multiple sites with positive rheumatoid factor (HCC) documented in this encounter Care Teams Gas Turbine Powerplant Mechanic Helper Relationship Specialty Start Date End Date Cheryl Calderon MD [facility] Adult Medicine [address] [place] [address] PCP - General Internal Medicine 07/17/17 documented as of this encounter
--- OUTSIDE RECORDS SUMMARY | 2024-07-28 12:13 | XMS_ITS | Encounter Summary ---
Author Organization [facility] Address [address] [place] [address] Care Team Providers Care Derrick Worker Well Service Name Role Phone Alberto Pacheco Primary Care Provider [phone] Charly Saxena Primary Care Provider [phone] Cheryl Calderon MD Primary Care Provider [phone] Encounter Details Date Type Department Care Team (Late st Contact Info) Description 09/02/2009 Orders Only [facility] Rheumatology [address] [place] [address] Abel Fierro MD [address] [place] [address] Social History Tobacco Use Types Packs/Day Years [...] RESULT Final Resul t Performing Organization Address [facility] de Phone Number [facility] [address] [place] [address] * ASPARTATE AMINOTRANSFERASE (AST), SERUM (09/02/2009) AST (SGOT) 24 10 - 35 U/L [facility] 09/02/2009 09/02/2009 9:5 7 PM EDT us Abel Fierro MD LAB SAME DAY RESULT Final Resul t Performing Organization Address [facility] Phone Number [facility] [address] [place] [address] * CREATININE WITH GLOMERULAR FILTRATION RATE, ESTIMATED [...] t Performing Organization Address City/[facility]/ZIP Co de Phone Number [facility] [address] [place] [address] * (ABNORMAL) CBC 5 PART DIFF (09/02/2009) [...] t Performing Organization Address City/[facility]/ZIP Co de Phone Number [facility] [address] [place] [address] documented in this encounter Visit Diagnoses Diagnosis Rheumatoid arthritis(714.0) Rheumatoid arthritis documented in this encounter Care Teams Derrick Worker Well Service Relationship Specialty Start Date End Date Alberto Pacheco [address] [place] [address] PCP - General 07/19/08 05/24/13 Charly Saxena [facility] [address] [place] [address] PCP - General Internal Medicine 05/25/13 07/16/17 Cheryl Calderon MD [facility] Medicine [address] [place] [address] PCP - General Internal Medicine 07/17/17 documented as of this encounter
--- OUTSIDE RECORDS SUMMARY | 2024-07-28 12:13 | XMS_ITS | Encounter Summary ---
Author Organization [facility] Address [address] [place] [address] Care Team Providers Care Building Construction Engineer Name Role Phone Alberto Pacheco Primary Care Provider [phone] Charly Saxena Primary Care Provider [phone] Cheryl Calderon MD Primary Care Provider Encounter Details Date Type Department Care Team (Late st Contact Info) Description 04/18/2012 Orders Only [facility] Rheumatology [address] [place] [address] Abel Fierro MD [address] [place] [address] Social History Tobacco Use Types Packs/Day Years [...] of this encounter Procedures * Due to [place] state law, this organization might not be [...] in this encounter Results * Due to [place] state law, this organization might not be sharing negative HIV tests. * ERYTHROCYTE SEDIMENTATION RATE (ESR), WESTERGREN (04/18/2012 1:37 PM EST) Sedimentation Rate [place] (ESR) 22 < OR = 30 mm/h [facility] Comment:{SED RATE BY MODIFIE D WESTERGREN {[id number]) 04/18/2012 1:37 PM EST 04/18/2012 11:16 PM EST Narrative Resulting Agency Comment [id number] us Abel Fierro MD LAB SAME DAY RESULT Final Resul t Performing Organization Address City/State/[facility] Co de Phone Number [facility] [address] [place] [address] * (ABNORMAL) C-REACTIVE PROTEIN (CRP) - INFLAMMATION (04/18/2012 1:37 PM EST) C reactive protein 1.36(H) <0.80 mg/dL [facility] Comment: {C-REACTIVE PROTEIN {[id number]) Please be advised that patients taking Carboxypenicillins may exhibit falsely decreased C-Reactive Protein levels due to an analytical interference in this assay. 04/18/2012 1:37 PM EST 04/18/2012 11:16 PM EST Narrative Resulting Agency Comment [id number] us Abel Fierro MD LABORATORY Final Result Performing Organization Address [facility] Co de Phone Number [facility] [address] [place] [address] * CREATININE WITH GLOMERULAR FILTRATION RATE, ESTIMATED (EGFR) (04/18/2012 1:37 PM EST) Creatinine 0.77 0.50 - 1.05 mg/dL [facility] Comment: {CREATININE {[id number]) For patients >49 years of age, the reference limit for Creatinine is approximately 13% higher for people identified as -Luxembourger. GFR 86 > OR = 60 mL/min/1. 73m2 [facility] Comment:{eGFR NON-AFR. AMERI CAN {[id number]) GFR () 99 > OR = 60 mL/min/1. 73m2 [facility] Comment:{eGFR AMERIC AN {[id number]) 04/18/2012 1:37 PM EST 04/18/2012 11:16 PM [...] needs for GFR calculation. Resulting Agency Comment [id number] us Abel Fierro MD LAB SAME DAY RESULT Final Resul t Performing Organization Address City/[facility] Co de Phone Number [facility] [address] [place] [address] * (ABNORMAL) CBC INCLUDES DIFFERENTIAL AND PLATELET COUNT (04/18/2012 1:37 PM EST) WBC 8.3 3.8 - 10.8 Thousand/ uL [facility] Comment:{WHITE BLOOD CELL CO UNT {[id number]) RBC 5.25(H) 3.80 - 5.10 Million/u L [facility] Comment:{RED BLOOD CELL COUN T {[id number]) Hemoglobin 15.1 11.7 - 15.5 g/dL [facility] Comment:{HEMOGLOBIN {[id number]) Hematocrit 46.5(H) 35.0 - 45.0 % [facility] Comment:{HEMATOCRIT {[id number]) MCV 88.5 80.0 - 100.0 fL [facility] Comment:{MCV {[id number]) MCH 28.7 27.0 - 33.0 pg [facility] Comment:{MCH {[id number]) MCHC 32.5 32.0 - 36.0 g/dL [facility] Comment:{MCHC {[id number]) RDW 13.4 11.0 - 15.0 % [facility] Comment:{RDW {[id number]) PLT 318 140 - 400 Thousand/ uL [facility] Comment:{PLATELET COUNT {[id number]) MPV 8.2 7.5 - 11.5 fL [facility] Comment:{MPV {[id number]) Neutrophils # 4681 1500 - 7800 cells/uL [facility] Comment:{ABSOLUTE NEUTROPHIL S {[id number]) Lymphocytes # 2598 850 - 3900 cells/uL [facility] Comment:{ABSOLUTE LYMPHOCYTE S {[id number]) Monocytes # 805 200 - 950 cells/uL [facility] Comment:{ABSOLUTE MONOCYTES {[id number]) Eosinophils # 199 15 - 500 cells/uL [facility] Comment:{ABSOLUTE EOSINOPHIL S {[id number]) Basophils # 17 0 - 200 cells/uL [facility] Comment:{ABSOLUTE BASOPHILS {[id number]) Neutrophils % 56.4 % [facility] Comment:{NEUTROPHILS {[id number]) Lymphocytes % 31.3 % [facility] Comment:{LYMPHOCYTES {[id number]) Monocytes % 9.7 % [facility] Comment:{MONOCYTES {[id number]) Eosinophils % 2.4 % [facility] Comment:{EOSINOPHILS {[id number]) Basophils % 0.2 % [facility] Comment:{BASOPHILS {[id number]) 04/18/2012 1:37 PM EST 04/18/2012 11:16 PM EST Narrative Resulting Agency Comment [id number] us Abel Fierro MD LAB SAME DAY RESULT Final Resul t Performing Organization Address City/[facility] Co de Phone Number [facility] [address] [place] [address] * ASPARTATE AMINOTRANSFERASE (AST), SERUM (04/18/2012 1:37 PM EST) AST (SGOT) 18 10 - 35 U/L [facility] Comment:{AST {[id number]) 04/18/2012 1:37 PM EST 04/18/2012 11:16 PM EST Narrative Resulting Agency Comment [id number] us Abel Fierro MD LAB SAME DAY RESULT Final Resul t Performing Organization Address [facility] de Phone Number [facility] [address] [place] [address] * ALANINE AMINOTRANSFERASE (ALT), SERUM (04/18/2012 1:37 PM EST) ALT (SGPT) 17 6 - 40 U/L [facility] Comment:{ALT {[id number]) 04/18/2012 1:37 PM EST 04/18/2012 11:16 PM EST Narrative Resulting Agency Comment [id number] us Abel Fierro MD LAB SAME DAY RESULT Final Resul t Performing Organization Address City/[facility] de Phone Number [facility] [address] [place] [address] documented in this encounter Visit Diagnoses Diagnosis Rheumatoid arthritis(714.0) Rheumatoid arthritis documented in this encounter Care Teams Building Construction Engineer Relationship Specialty Start Date End Date Alberto Pacheco [address] [place] [address] PCP - General 07/19/08 05/24/13 Charly Saxena [facility] [address] [place] [address] PCP - General Internal Medicine 05/25/13 07/16/17 Cheryl Calderon MD [address] [address] PCP - General Internal Medicine 07/17/17 documented as of this encounter
--- OUTSIDE RECORDS SUMMARY | 2024-07-28 12:13 | XMS_ITS | Encounter Summary ---
Author Organization [facility] Address [address] [place] [address] Phone Care Team Providers Care Railroad Signal And Switch Operator Name Role Phone Cash Fernandes MD Unavailable [phone] Keren Poon [facility] Primary Care Provid er Willi Wells MD Unavailable Jose Thakur MD Unavailable [phone] Dana Rucker VP PUBLIC RELATIONS Unavailable Jonathan Alvarez MD Unavailable [phone] Anival Borja MD Unavailable Lyndsay Reynoso VP PUBLIC RELATIONS Unavailable [phone] Gutierrez Pittman MD Unavailable [phone] Encounter Details Date Type Department Care Team (Late st Contact Info) Description 07/10/2024 Procedure Pass [facility], Ct Scan - [address] [address] Social History Tobacco Use Types Packs/Day Years [...] st Contact Info) Description 06/06/2024 Procedure Pass [address] [address] 07/28/2024 1:00 PM EDT [facility] [address] [place] [address] Trice De Santiago LPN [address] [place] [address] 07/30/2024 3:30 PM EDT Office Visit [facility] [address] [place] [address] [place] [address] Keren Poon, COVER STRIPPER 170 [facility], 2nd [place] [address] 08/04/2024 2:30 AM EDT [facility] [address] [place] [address] Orlando Mckeon RN [address] [place] [address] 08/11/2024 2:00 AM EDT [facility] [address] [place] [address] Orlando Mckeon RN [address] [place] [address] 08/18/2024 1:30 AM EDT Home [facility] [address] [place] [phone] Orlando Mckeon RN [address] [place] [address] 08/25/2024 1:00 AM EDT Home Care Visit [facility] [address] [place] [address] Orlando Mckeon RN [address] [place] [address] 09/01/2024 12:30 AM EDT Appointment [facility] [address] [place] [phone] Orlando Mckeon RN [address] [place] [address] 09/18/2024 2:30 PM EDT Office Visit [facility] Infectious Diseases [address] [place] [address] Dana Rucker, VP PUBLIC RELATIONS [address] [address] 11/26/2024 3:30 PM EDT Office Visit [facility] [address] [place] [address] [place] [address] Keren Poon, COVER STRIPPER [address] [address] 12/11/2024 2:00 PM EDT Appointment [facility] [address] [place] [address] Keren Poon, COVER STRIPPER [address] [address] [email or web address] 01/07/2025 2:30 PM EDT Office Visit [facility] All[facility] Critical [facility] [address] [place] [address] Jose Thakur MD [address] [place] [address] 06/03/2025 2:00 PM EST Office Visit [facility] [address] [place] [address] [place] [address] Keren Poon CNP 170 [facility], 2nd [place], [place] [email or web address] documented as of this encounter Visit Diagnoses Not on filedocumented in this encounter Additional Health Concerns Infection Onset Date Last Indicated Resolved Time CoV-Risk 07/10/2024 07/10/2024 07/21/2024 1:21 AM EDT CDiff-Risk 07/10/2024 07/10/2024 07/10/2024 10:2 9 AM EDT C. diff 07/10/2024 07/10/2024 CDiff-Risk 07/10/2024 07/10/2024 07/10/2024 11:0 0 AM EDT Assessment Noted Time PHQ-9 Depression Total Score: 5 05/09/19 24 6:55 AM EST PHQ-2 Depression Total Score: 2 05/27/19 25 1:55 PM EST documented as of this encounter Care Teams Railroad Signal And Switch Operator Relationship Specialty Start Date End Date Keren Poon, ORI 170 [facility], 2nd [place] PCP - General Family Medicine 01/31/23 Cash Fernandes MD [address] [place] [address] Gastroenterology 08/23/20 Willi Wells MD [address] Vinayak [address]_[place] [address] Rheumatology 02/04/24 Jose Thakur MD [address] [place] [address] Accounting Office Manager Pulmonary Disease 03/17/24 Dana Rucker FNP 15 [facility], 2nd [place] [address] [email or web address] Nurse Practitioner Infectious Diseases 05/21/24 Jonathan Alvarez MD [address] [place] [address], [address] [place] [address] [email or web address] [email or web address] 05/14/23 Anival Borja MD [address] [place] [address], [address] [place] [address] Neurologist Neurology 01/04/23 Lyndsay Reynoso FNP [address] [place] [address] [email or web address] Nurse Practitioner Pain Medicine 05/27/22 Gutierrez Pittman MD [address] [place] [address] Clothing Cutter Cardiology 05/27/24 documented as of this encounter Additional Source Comments The information contained in this document represents components of the legal health record. It is not the complete legal health record.[facility]
--- OUTSIDE RECORDS SUMMARY | 2024-07-28 12:13 | XMS_ITS | Encounter Summary ---
Author Organization [facility] Address [address] [place] [address] Care Team Providers Care Secretary Book Keeper Name Role Phone Alberto Pacheco Primary Care Provider [phone] Charly Saxena Primary Care Provider [phone] Cheryl Calderon MD Primary Care Provider [phone] Encounter Details Date Type Department Care Team (Late st Contact Info) Description 10/18/2011 Orders Only [facility] Rheumatology [address] [place] [address] Abel Fierro MD [address] [place] [address] Social History Tobacco Use Types Packs/Day Years [...] - 1.05 mg/dL [facility] Comment: {CREATININE {[id number]) For patients >49 years of age, the reference limit for Creatinine is approximately 13% higher for people identified as -Burkinan. GFR 80 > OR = 60 mL/min/1. 73m2 [facility] Comment:{eGFR NON-AFR. AMERI CAN {[id number]) GFR () 93 > OR = 60 mL/min/1. 73m2 [facility] Comment:{eGFR AMERIC AN {[id number]) 10/18/2011 4:28 PM EDT 10/18/2011 8:48 PM [...] needs for GFR calculation. Resulting Agency Comment [id number] us Abel Fierro MD LAB SAME DAY RESULT Final Resul t [facility] [address] [place] [address] * ALANINE AMINOTRANSFERASE (ALT), SERUM (10/18/2011 4:28 PM EDT) ALT (SGPT) 24 6 - 40 U/L [facility] Comment:{ALT {[id number]) 10/18/2011 4:28 PM EDT 10/18/2011 8:48 PM EDT Narrative Resulting Agency Comment [id number] Abel Fierro MD LAB SAME DAY RESULT Final Resul t Performing Organization Address City/[facility] Co de Phone Number [facility] [address] [place] [address] * ASPARTATE AMINOTRANSFERASE (AST), SERUM (10/18/2011 4:28 PM EDT) Pathologist [facility] AST (SGOT) 27 10 - 35 U/L [facility] Comment:{AST {[id number]) 10/18/2011 4:28 PM EDT 10/18/2011 8:48 PM EDT Narrative Resulting Agency Comment [id number] Abel Fierro MD LAB SAME DAY RESULT Final Resul t Performing Organization Address [facility] de Phone Number [facility] [address] [place] [address] * (ABNORMAL) CBC INCLUDES DIFFERENTIAL AND PLATELET COUNT (10/18/2011 4:28 PM EDT) Pathologist [facility] WBC 7.2 3.8 - 10.8 Thousand/ uL [facility] Comment:{WHITE BLOOD CELL CO UNT {[id number]) RBC 5.34(H) 3.80 - 5.10 Million/u L [facility] Comment:{RED BLOOD CELL COUN T {[id number]) Hemoglobin 15.0 11.7 - 15.5 g/dL [facility] Comment:{HEMOGLOBIN {[id number]) Hematocrit 46.3(H) 35.0 - 45.0 % [facility] Comment:{HEMATOCRIT {[id number]) MCV 86.6 80.0 - 100.0 fL [facility] Comment:{MCV {[id number]) MCH 28.1 27.0 - 33.0 pg [facility] Comment:{MCH {[id number]) MCHC 32.5 32.0 - 36.0 g/dL [facility] Comment:{MCHC {[id number]) RDW 14.4 11.0 - 15.0 % [facility] Comment:{RDW {[id number]) PLT 254 140 - 400 Thousand/ uL [facility] Comment:{PLATELET COUNT {[id number]) MPV 8.4 7.5 - 11.5 fL [facility] Comment:{MPV {[id number]) Neutrophils # 3226 1500 - 7800 cells/uL [facility] Comment:{ABSOLUTE NEUTROPHIL S {[id number]) Lymphocytes # 2988 850 - 3900 cells/uL [facility] Comment:{ABSOLUTE LYMPHOCYTE S {[id number]) Monocytes # 893 200 - 950 cells/uL [facility] Comment:{ABSOLUTE MONOCYTES {[id number]) Eosinophils # 65 15 - 500 cells/uL [facility] Comment:{ABSOLUTE EOSINOPHIL S {[id number]) Basophils # 29 0 - 200 cells/uL [facility] Comment:{ABSOLUTE BASOPHILS {[id number]) Neutrophils % 44.8 % [facility] Comment:{NEUTROPHILS {[id number]) Lymphocytes % 41.5 % [facility] Comment:{LYMPHOCYTES {[id number]) Monocytes % 12.4 % [facility] Comment:{MONOCYTES {[id number]) Eosinophils % 0.9 % [facility] Comment:{EOSINOPHILS {[id number]) Basophils % 0.4 % [facility] Comment:{BASOPHILS {[id number]) 10/18/2011 4:28 PM EDT 10/18/2011 8:48 PM EDT Narrative Resulting Agency Comment [id number] us Abel Fierro MD LAB SAME DAY RESULT Final Resul t [facility] [address] [place] [address] documented in this encounter Visit Diagnoses Diagnosis Rheumatoid arthritis(714.0) Rheumatoid arthritis documented in this encounter Care Teams Secretary Book Keeper Relationship Specialty Start Date End Date Alberto Pacheco [address] [place] [address] PCP - General 07/19/08 05/24/13 Charly Saxena [facility] [address] [place] [address] PCP - General Internal Medicine 05/25/13 07/16/17 Cheryl Calderon MD [facility] Adult Medicine [address] [place] [address] PCP - General Internal Medicine 07/17/17 documented as of this encounter
== END 2024-07-28 11:17 | disposition home or self-care (01) ==
LOC: HO.RHE 10:21
PROVIDERS: PCP Nurse Practitioner Family; Visit Provider Student in an Organized Health Care Education/Training Program
DX: M05.79 Rheumatoid arthritis with rheumatoid factor of multiple sites without organ or systems involvement (principal); M70.51 Other bursitis of knee, right knee; M70.52 Other bursitis of knee, left knee; Z51.81 Encounter for therapeutic drug level monitoring; Z79.620 Long term (current) use of immunosuppressive biologic; Z79.631 Long term (current) use of antimetabolite agent; Z79.52 Long term (current) use of systemic steroids
CPT/HCPCS: 20610; 99215

== ENCOUNTER 2024-07-28 11:19 | Outpatient (REF) | payer MEDICARE, BC, SELFPAY ==
[2024-07-28 11:47] LABS: MANUAL DIFF FLAG NO
[2024-07-28 11:50] LABS: Basophils Absolute Auto 0.1 X10*3/uL (0.0-0.2); Basophils Percent Auto 0.8 % (0-2); Eosinophils Absolute Auto 0.3 X10*3/uL (0.0-0.4); Eosinophils Percent Auto 3.6 % (0-4); Hematocrit 49.3 % (37.0-47.0); Hemoglobin 15.5 g/dl (12.0-16.0); Imm Gran Abs Auto 0.02 X10*3/uL (0.00-0.03); Imm Gran Pct Auto 0.3 % (0.0-0.4); Lymphocytes Absolute Auto 1.3 X10*3/uL (1.2-4.9); Lymphocytes Percent Auto 16.5 % (20-40); Mean Corpuscular HGB Conc 31.4 g/dl (31.0-35.0); Mean Corpuscular Hemoglobin 28.3 pg (27.0-33.0); Mean Platelet Volume 9.1 fL (9.4-12.3); Monocytes Absolute Auto 0.8 X10*3/uL (0.1-1.2); Monocytes Percent Auto 9.9 % (2-11); Neutrophils Absolute Auto 5.4 x10*3/uL (2.0-8.3); Neutrophils Percent Auto 68.9 % (45-73); Platelet Count 294 X10*3/uL (160-400); Red Blood Count 5.48 X10*6/uL (4.20-5.50); Red Cell Distribution Width 13.2 % (11.0-16.0); White Blood Count 7.8 X10*3/uL (4.8-10.8)
[2024-07-28 12:26] LABS: Alanine Aminotransferase 15 U/L (0-31); Albumin Level 3.9 g/dL (3.5-5.0); Alkaline Phosphatase 59 U/L (39-117); Anion Gap 10 (12-20); Aspartate Amino Transferase 29 U/L (5-31); Bilirubin Total 0.5 mg/dL (0.0-1.0); Blood Urea Nitrogen 12 mg/dL (9-16); C Reactive Protein 0.13 mg/dL (< or = 0.50); Calcium 9.5 mg/dL (8.4-10.2); Carbon Dioxide 29 mmol/L (22-29); Chloride 110 mmol/L (96-108); Estimated Glomerular Filt Rate > 60; Glucose Random 91 mg/dL (60-115); Sodium 145 mmol/L (135-145); Total Protein 6.4 g/dL (6.5-8.0)
--- OUTSIDE RECORDS SUMMARY | 2024-07-28 13:43 | XMS_ITS | Encounter Summary ---
Author Organization [facility] Address [address] [place] [address] Phone Care Team Providers Care Lead Radiologic Technologist Name Role Phone Patrick Sanchez MD Unavailable [phone] Charly Saxena DO Primary Care Provider Cheryl Calderon MD Primary Care Provider Keren Mabry MD Unavailable Louisa Hogan MD Unavailable Charly Saxena DO Unavailable [phone] Abhinav Muhammad MD Unavailable [phone] Cheryl Giraldo NP Unavailable Wilfrido Steel MD Unavailable [phone] Sharon Martin PA-C Unavailable Ita Pineda CNP Primary Care Provider Cash Fernandes MD Unavailable [phone] Seven Menchaca MD Unavailable [phone] Chavo Jack MD Primary Care Provider [phone] Keren Poon [facility] Primary Care Provid er Chavo Jack MD Unavailable Willi Wells MD Unavailable Jose Thakur MD Unavailable Dana Rucker EMR SPECIALIST Unavailable [phone] Jonathan Alvarez MD Unavailable [phone] Anival Borja MD Unavailable Lyndsay Reynoso EMR SPECIALIST Unavailable [phone] Gutierrez Pittman MD Unavailable Encounter Details Date Type Department Care Team (Late st Contact Info) Description 12/27/2017 Ancillary Orders [facility] Orthopedics at [address] [address] Patrick Sanchez MD [address] [place] [address] Department [place] [address] [email or web address] Social History Tobacco [...] Contact Info) Description 06/06/2024 Procedure Pass [address] [address] 07/30/2024 3:30 PM EDT Office Visit [facility] [address] [place] [address] [place] [address] Keren Ferreira, METAL DIE FINISHER 170 [facility], 2nd [place] [address] 08/04/2024 2:30 AM EDT Home [facility] [address] [place] [phone] Orlando Mckeon RN [address] [place] [address] 08/11/2024 2:00 AM EDT Home Care Visit [facility] [address] [place] [phone] Orlando Mckeon RN [address] [place] [address] 08/18/2024 1:30 AM EDT Home Care Visit [facility] [address] [place] [phone] Orlando Mckeon RN [address] [place] [address] 08/25/2024 1:00 AM EDT Home Care Visit [facility] [address] [place] [phone] Orlando Mckeon RN [address] [place] [address] 09/01/2024 12:30 AM EDT Appointment [facility] [address] [place] [phone] Orlando Mckeon RN [address] [place] [address] 09/18/2024 2:30 PM EDT Office Visit [facility] Infectious Diseases [address] [place] [address] Dana Rucker, EMR SPECIALIST [address] [address] 11/26/2024 3:30 PM EDT Office Visit [address] [place], [place] [address] Keren Poon CNP [address] [address] 12/11/2024 2:00 PM EDT Appointment [facility] [address] [place] [address] Keren Poon CNP [address] [place] [address] 01/07/2025 2:30 PM EDT Office Visit [facility] [address] [place] [address] Jose Thakur MD [address] [place] [address] 06/03/2025 2:00 PM EST Office Visit [address] [place], [place] [address] Keren Poon, ORI [address] [place] [address] documented as of this encounter Results * [...] documented as of this encounter Care Teams Lead Radiologic Technologist Relationship Specialty Start Date End Date Charly Saxena DO [address] [place] [address] PCP - General Internal Medicine 10/05/14 04/22/18 Cheryl Calderon MD [address] [place] [address] PCP - General Family Medicine 04/23/18 08/18/20 Ita Pineda CNP [address] [place] [address] PCP - General Internal Medicine 08/19/20 09/17/22 Chavo Jakc MD [address] [place] [address] [email or web address] PCP - General Internal Medicine 09/18/22 01/30/23 Keren Poon CNP [address] [place] [address], 2nd [place] [address] [email or web address] PCP - General Family Medicine 01/31/23 Patrick Sanchez MD [address] [place] [address] of [place] [address] [email or web address] Historical LMR Provider 09/10/14 Keren Mabry MD [address] [place] [address] Historical LMR Provider 07/10/18 Louisa Hogan MD [address] [place] [address] [email or web address] Historical LMR Provider 07/10/1807/29 Charly Saxena DO [address] [place] [address] [address] [place] [address] Historical LMR Provider 07/10/18 Abhinav Muhammad MD [address] [place] [address] [address] [place] [address] [email or web address] Historical LMR Provider 07/10/18 08/22/20 Cheryl Giraldo, SNOW MAKER [address] [place] [address] Historical LMR Provider 07/10/18 Wilfrido Steel MD [address] [place] [address] Historical LMR Provider 07/10/18 Sharon Martin PA-C [address] [facility] [address] [place] [address] [email or web address] Historical LMR Provider 07/10/18 08/22/20 Cash Fernandes MD [address] [place] [address] [email or web address] Gastroenterology 08/23/20 Seven Menchaca MD [address] [place] [address] [email or web address] Insurance Assigned Provider 08/04/22 08/03/23 Chavo Jack MD [address] [place] [address] [email or web address] Insurance Assigned Provider 08/03/23 05/04/24 Willi Wells MD [address] [place] [address] 304_[place] [address] Rheumatology 02/04/24 Jose Thakur MD [address] [place] [address] Transport Company Manager Pulmonary Disease 03/17/24 Dana Rucker FNP 15 [facility], 2nd [place] [address] Nurse Practitioner Infectious Diseases 05/21/24 Jonathan Alvarez MD [address] [place] [address], [address] [place] [address] Urology 05/14/23 Anival Borja MD [address] [place] [address], [address] [place] [address] Neurologist Neurology 01/04/23 Lyndsay Reynoso FNP [address] [place] [address] [place] [address] [email or web address] Nurse Practitioner Pain Medicine 05/27/22 Gutierrez Pittman MD [address] [place] [address] Phosphoric Acid Supervisor Cardiology 05/27/24 documented as of this encounter Additional Source Comments The information contained in this document represents components of the legal health record. It is not the complete legal health record.[facility]
--- OUTSIDE RECORDS SUMMARY | 2024-07-28 13:43 | XMS_ITS | Encounter Summary ---
Author Organization [facility] Address [address] [place] [address] Phone Care Team Providers Care Director Alliance Marketing Name Role Phone Cash Fernandes MD Unavailable [phone] Keren Poon [facility] Primary Care Provid er Chavo Jack MD Unavailable Willi Wells MD Unavailable Jose Thakur MD Unavailable Dana Rucker YARD LABORER Unavailable [phone] Jonathan Alvarez MD Unavailable [phone] Anival Borja MD Unavailable Lyndsay Reynoso YARD LABORER Unavailable [phone] Gutierrez Pittman MD Unavailable [phone] Encounter Details Date Type Department Care Team (Late st Contact Info) Description 01/06/2024 Procedure Pass [facility] Endoscopy Admitting Dept [facility] Department [address] [place] [address] Social History Tobacco Use Types Packs/Day Years [...] Description 06/06/2024 Procedure Pass [facility] 30 [place] [address] 07/30/2024 3:30 PM EDT Office Visit [facility] [address] [place] [address] [place] [address] Keren Poon, CHIEF OF STAFF 170 [facility], 2nd [place] [address] 08/04/2024 2:30 AM EDT Home Care Visit [facility] [address] [place] [phone] Orlando Mckeon RN [address] [place] [address] 08/11/2024 2:00 AM EDT Home Care Visit [facility] [address] [place] [phone] Orlando Mckeon RN [address] [place] [address] 08/18/2024 1:30 AM EDT [facility] [address] [place] [phone] Orlando Mckeon RN 168 [place] [address] 08/25/2024 1:00 AM EDT Home Care Visit [facility] [address] [place] [phone] Orlando Mckeon RN [address] [place] [address] 09/01/2024 12:30 AM EDT Appointment [facility] [address] [place] [address] Orlando Mckeon RN 168 [place] [address] 09/18/2024 2:30 PM EDT Office Visit [facility] Infectious Diseases 22 [place] [address] Dana Rucker, DIVYA [address] [address] 11/26/2024 3:30 PM EDT Office Visit [address] [place] [address] Keren Poon, ORI [address] [place] [address] 12/11/2024 2:00 PM EDT Appointment [facility], [facility] 30 [place] [address] Keren Poon, ORI [address] [address] 01/07/2025 2:30 PM EDT Office Visit [facility] Pulmonary, Allergy and Critical Care Medicine [address] [place] [address] Jose Thakur MD 30 [place] [address] 06/03/2025 2:00 PM EST Office Visit [address] [place] [address] Keren Poon, ORI [address] [place] [address] [email or web address] documented as of this encounter Visit Diagnoses [...] documented as of this encounter Care Teams Director Alliance Marketing Relationship Specialty Start Date End Date Cleve Keren ORI Glaser [address] [place] [address], 2nd [place] [address] [email or web address] PCP - General Family Medicine 01/31/23 Cash Fernandes MD [address] [place] [address] [email or web address] Gastroenterology 08/23/20 Chavo Jack MD [address] [place] [address] Insurance Assigned Provider 08/03/23 05/04/24 Willi Wells MD [address] Vinayak 304_[place] [address] Rheumatology 02/04/24 Jose Thakur MD 30 [place] [address] Neighborhood Coordinator Pulmonary Disease 03/17/24 Dana Rucker FNP 15 [facility], 2nd [place] [address] [email or web address] Nurse Practitioner Infectious Diseases 05/21/24 Jonathan Alvarez MD [address] [place] [address], [address] [place] [address] [email or web address] Urology 05/14/23 Anival Borja MD [address] [place] [address], [address] [place] [address] [email or web address] Neurologist Neurology 01/04/23 Lyndsay Reynoso FNP [address] [place] [address] [email or web address] Nurse Practitioner Pain Medicine 05/27/22 Gutierrez Pittman MD 40 [place] [address] Doughnut Machine Operator Helper Cardiology 05/27/24 documented as of this encounter Additional Source Comments The information contained in this document represents components of the legal health record. It is not the complete legal health record.[facility]
--- OUTSIDE RECORDS SUMMARY | 2024-07-28 13:43 | XMS_ITS | Encounter Summary ---
Author Organization [facility] Address [address] [place] [address] Phone Care Team Providers Care Parts Clerk Name Role Phone Unavailable Primary Care Provider Unavailabl e Encounter Details Date Type Department Care Team (Late st Contact Info) Description 10/09/2012 Hospital Encounter [facility],Outside Imaging 30 [place], [place] [id number] System, Provider Not In, [place] [address] Social History Tobacco Use Types Packs/Day Years [...] 06/06/2024 Procedure Pass [facility], [facility] 30 [place] [address] 07/30/2024 3:30 PM EDT Office Visit [facility] [address] [place] [address] [place] [address] Keren Poon, CAD LIBRARIAN [facility], 2nd [place] [address] 08/04/2024 2:30 AM EDT Home Care Visit [facility] [address] [place] [phone] Orlando Mckeon RN [address] [place] [address] 08/11/2024 2:00 AM EDT Home Care Visit [facility] [address] [place] [phone] Orlando Mckeon RN [address] [place] [address] [email or web address] 08/18/2024 1:30 AM EDT [facility] [address] [place] [phone] Orlando Mckeon RN [address] [place] [address] 08/25/2024 1:00 AM EDT Home Care [facility] [address] [place] [phone] Orlando Mckeon RN [address] [place] [address] 09/01/2024 12:30 AM EDT Appointment [facility] [address] [place] [phone] Orlando Mckeon RN [address] [place] [address] 09/18/2024 2:30 PM EDT Office Visit [facility] Infectious Diseases [address] [place] [address] Dana Rucker, FILTER PRESS TENDER HEAD [address] [address] 11/26/2024 3:30 PM EDT Office Visit [address] [place] [address] Keren Poon, ORI [address] [place] [address] 12/11/2024 2:00 PM EDT Appointment [facility] 30 [place] [address] Keren Poon, ORI [address] [place] [address] 01/07/2025 2:30 PM EDT [facility]monary, Allergy and Critical Care Medicine [address] [place] [address] Jose Thakur MD 30 [place] [address] 06/03/2025 2:00 PM EST Office Visit [address] [place] [address] Keren Poon, ORI [address] [place] [address] documented as of this encounter Procedures Procedure [...]
--- OUTSIDE RECORDS SUMMARY | 2024-07-28 13:43 | XMS_ITS | Encounter Summary ---
Author Organization [facility] Address [address] [place] [address] Phone Care Team Providers Care Reference Archivist Name Role Phone Unavailable Primary Care Provider Unavailabl e Encounter Details Date Type Department Care Team (Late st Contact Info) Description 10/09/2011 Hospital Encounter [facility],Outside Imaging 30 [place], [place] [id number] System, Provider Not In, [place] [address] Social History Tobacco Use Types Packs/Day Years [...] Description 06/06/2024 Procedure Pass [facility], [facility] 30 [place] [address] 07/30/2024 3:30 PM EDT Office Visit [facility] [address] [place] [address] [place] [address] Keren Poon, CARGO BRACER 170 [facility] [place] [facility], 2nd [place] [address] 08/04/2024 2:30 AM EDT Home Care Visit [facility] [address] [place] [phone] Orlando Mckeon RN [address] [place] [address] 08/11/2024 2:00 AM EDT Home Care Visit [facility] [address] [place] [phone] Orlando Mckeon RN [address] [place] [address] 08/18/2024 1:30 AM EDT Home Care Visit [facility] [address] [place] [phone] Orlando Mckeon RN [address] [place] [address] 08/25/2024 1:00 AM EDT Home Care Visit [facility] [address] [place] [phone] Orlando Mckeon RN [address] [place] [address] 09/01/2024 12:30 AM EDT Appointment [facility] [address] [place] [phone] Orlando Mckeon RN [address] [place] [address] 09/18/2024 2:30 PM EDT Office Visit [facility] Infectious Diseases [address] [place] [address] Dana Rucker, FELTMAKER [address] [address] 11/26/2024 3:30 PM EDT Office Visit [address] [place] [address] Keren Poon, ORI [address] [place] [address] 12/11/2024 2:00 PM EDT Appointment [facility] 30 [place] [address] Keren Poon, ORI [address] [place] [address] 01/07/2025 2:30 PM EDT Office Visit [facility] [address] [place] [address] Jose Thakur MD 30 [place] [address] 06/03/2025 2:00 PM EST Office Visit [address] [place] [address] Keren Poon, ORI [address] [place] [address] documented as of this encounter Procedures Procedure [...] It is not the complete legal health record.[facility]
--- OUTSIDE RECORDS SUMMARY | 2024-07-28 13:43 | XMS_ITS | Encounter Summary ---
Author Organization [facility] Address [address] [place] [address] Care Team Providers Care Milking Machine Mechanic Name Role Phone Cheryl Calderon MD Primary Care Provider [phone] Reason for Visit * Reason Comments E-prescribing Refill Request Encounter Details Date Type Department Care Team (Late st Contact Info) Description 06/08/2019 Refill [facility]. Rheumatology 5 [place] [phone] Melanie Aguirre MD 5 [place] [address] E-prescribing Refill Request Social History Tobacco Use [...] Phone 06/19/19 1:45 PM Melanie Aguirre MD [facility] Rheumatology [phone] 08/04/19 2:40 PM Liliana Calderon NP [facility] Hematology/Oncology [phone] 11/10/19 1:30 PM Lyndsay Lopez MD [facility] Ophthalmology [phone] Pertinent lab results: Lab Results Component Value [...] ??? Elbow pain 06/03/2012 ??? Rheumatoid arthritis(714.0) ([facility]) 09/29/2010 Followed by rheumatology treated with [...] on filedocumented in this encounter Care Teams Milking Machine Mechanic Relationship Specialty Start Date End Date Cheryl Calderon MD [facility] Adult Medicine [address] [place] [address] PCP - General Internal Medicine 07/17/17 documented as of this encounter
--- OUTSIDE RECORDS SUMMARY | 2024-07-28 13:43 | XMS_ITS | Encounter Summary ---
Author Organization [facility] Address [address] [place] [address] Phone Care Team Providers Care Cycle Repairer Name Role Phone Cash Fernandes MD Unavailable [phone] Seven Menchaca MD Unavailable Chavo Jack MD Primary Care Provider Keren Poon [facility] Primary Care Provid er Chavo Jack MD Unavailable Willi Wells MD Unavailable Jose Thakur MD Unavailable Dana Rucker LANDSCAPE ACCOUNT MANAGER Unavailable Jonathan Alvarez MD Unavailable [phone] Anival Borja MD Unavailable Lyndsay Reynoso LANDSCAPE ACCOUNT MANAGER Unavailable Gutierrez Pittman MD Unavailable [phone] Encounter Details Date Type Department Care Team (Late st Contact Info) Description 01/08/2023 Procedure Pass [facility] Endoscopy Admitting Dept Virtual Department [address] [place] [address] Social History Tobacco Use Types Packs/Day Years [...] 06/06/2024 Procedure Pass [facility], [facility] 30 [place] [address] 07/30/2024 3:30 PM EDT Office Visit [facility] [address] [facility] [place] [address] Keren Poon, TANK CAR REPAIRER 170 [facility], 2nd [place] [address] 08/04/2024 2:30 AM EDT Home Care Visit [facility] [address] [place] [phone] Orlando Mckeon RN [address] [place] [address] 08/11/2024 2:00 AM EDT Home Care Visit [facility] [address] [place] [phone] Orlando Mckeon RN [address] [place] [address] 08/18/2024 1:30 AM EDT Home Care Visit [facility] [address] [place] [address] Orlando Mckeon RN [address] [place] [address] 08/25/2024 1:00 AM EDT Home Care Visit [facility] [address] [place] [phone] Orlando Mckeon RN [address] [place] [address] 09/01/2024 12:30 AM EDT [facility]ment [facility] 30 [place] [address] Orlando Mckeon, RENZO 168 [place] [address] 09/18/2024 2:30 PM EDT Office Visit [facility] Infectious Diseases 22 [place] [address] Dana Rucker, DIVYA 15 [facility], 2nd [place] [address] 11/26/2024 3:30 PM EDT Office Visit [address] [place] [address] Keren Poon, ORI [address] [place] [address] 12/11/2024 2:00 PM EDT Appointment [facility], [facility] 30 [place] [address] Keren Poon, ORI [address] [address] 01/07/2025 2:30 PM EDT Office Visit [facility]monary, Allergy and Critical Care Medicine [address] [place] [address] Jose Thakur MD 30 [place] [address] 06/03/2025 2:00 PM EST Office Visit [address] [place] [address] Keren Poon, ORI [address] [address] [email or web address] documented as of this encounter Visit Diagnoses [...] documented as of this encounter Care Teams Cycle Repairer Relationship Specialty Start Date End Date Chavo Jack MD [address] [place] [address] [email or web address] PCP - General Internal Medicine 09/18/22 01/30/23 Keren Poon CNP [address] [place] [address], 2nd [place] [address] [email or web address] PCP - General Family Medicine 01/31/23 Cash Fernandes MD [address] [place] [address] Gastroenterology 08/23/20 Seven Menchaca MD 40 [place] [address] [email or web address] Insurance Assigned Provider 08/04/22 08/03/23 Chavo Jack MD 40 [place] [address] [email or web address] Insurance Assigned Provider 08/03/23 05/04/24 Willi Wells MD [address] Vinayak 304_[place] [address] Rheumatology 02/04/24 Jose Thakur MD [address] [place] [address] [email or web address] Cork Tile Floor Layer Pulmonary Disease 03/17/24 Dana Rucker FNP 15 [facility], 2nd [place] [address] [email or web address] Nurse Practitioner Infectious Diseases 05/21/24 Jonathan Alvarez MD [address] [place] [address], [address] [place] [address] [email or web address] Urology 05/14/23 Anival Borja MD [address] [place] [address], [address] [place] [address] [email or web address] Neurologist Neurology 01/04/23 Lyndsay Reynoso FNP [address] [place] [address] Drive [address] [place] [address] [email or web address] Nurse Practitioner Pain Medicine 05/27/22 Gutierrez Pittman MD 40 [place] [address] Corporate Account Executive Cardiology 05/27/24 documented as of this encounter Additional Source Comments The information contained in this document represents components of the legal health record. It is not the complete legal health record.[facility]
--- OUTSIDE RECORDS SUMMARY | 2024-07-28 13:43 | XMS_ITS | Encounter Summary ---
Author Organization [facility] Address [address] [place] [address] Phone Care Team Providers Care Production Corrugator Name Role Phone Patrick Sanchez MD Unavailable [phone] Charly Saxena DO Primary Care Provider [phone] Cheryl Calderon MD Primary Care Provider Keren Mabry MD Unavailable Louisa Hogan MD Unavailable Charly Saxena DO Unavailable [phone] Abhinav Muhammad MD Unavailable [phone] Cheryl Giraldo NP Unavailable Wilfrido Steel MD Unavailable [phone] Sharon Martin PA-C Unavailable Ita Pineda CNP Primary Care Provider Cash Fernandes MD Unavailable [phone] Seven Menchaca MD Unavailable Chavo Jack MD Primary Care Provider Keren Poon CNP Primary Care Provid er Chavo Jack MD Unavailable Willi Wells MD Unavailable Jose Thakur MD Unavailable Dana Rucker EVENT DECORATOR AND DESIGNER Unavailable Jonathan Alvarez MD Unavailable [phone] Anival Borja MD Unavailable Lyndsay Reynoso EVENT DECORATOR AND DESIGNER Unavailable [phone] Gutierrez Pittman MD Unavailable Encounter Details Date Type Department Care Team (Late st Contact Info) Description 12/20/2017 Procedure Pass BWF Periop 6th floor [facility] [place] [address] Social History Tobacco Use Types Packs/Day Years [...] (Late Contact Info) Description 06/06/2024 Procedure Pass [address] [address] 07/30/2024 3:30 PM EDT Office Visit [facility] [address] [place] [address] [place] [address] Keren Poon, ORI [address] [facility], 2nd [place] [address] 08/04/2024 2:30 AM EDT Home Care Visit [facility] [address] [place] [address] Orlando Mckeon RN [address] [place] [address] 08/11/2024 2:00 AM EDT Home Care Visit [facility] [address] [place] [phone] Orlando Mckeon RN [address] [place] [address] 08/18/2024 1:30 AM EDT Home Care Visit [facility] [address] [place] [phone] Orlando Mckeon RN [address] [place] [address] 08/25/2024 1:00 AM EDT Home Care Visit [facility] [address] [place] [phone] Orlando Mckeon, RENZO [address] [place] [address] [email or web address] 09/01/2024 12:30 AM EDT Appointment [facility] [address] [place] [phone] Orlando Mckeon, RENZO [address] [place] [address] [email or web address] 09/18/2024 2:30 PM EDT Office Visit [facility] [address] [place] [address] Dana Rucker, DIVYA 15 [facility], 2nd [place] [address] 11/26/2024 3:30 PM EDT Office Visit [facility] [address] [place] [address] [place] [address] Keren Poon, ORI 170 [facility], 2nd [facility] [place] [address] [email or web address] 12/11/2024 2:00 PM EDT Appointment [facility] [address] [place] [address] Keren Poon, ORI 170 [facility], [address] [facility] [address] [email or web address] 01/07/2025 2:30 PM EDT Office Visit [facility] [address] [place] [address] Jose Thakur MD 30 [place] [address] 06/03/2025 2:00 PM EST Office Visit [facility] [address] [place] [address] [place] [address] Keren Poon, ORI [address] [address] documented as of this encounter Visit Diagnoses [...] documented as of this encounter Care Teams Production Corrugator Relationship Specialty Start Date End Date Charly Saxena DO [address] [address] PCP - General Internal Medicine 10/05/14 04/22/18 Cheryl Calderon MD [address] [place] [address] PCP - General Family Medicine 04/23/18 08/18/20 Ita Pineda CNP [address] [place] [address] PCP - General Internal Medicine 08/19/20 09/17/22 Chavo Jack MD 40 [place] [address] PCP - General Internal Medicine 09/18/22 01/30/23 Keren Poon CNP [address] [place] [address], 2nd [place] [address] PCP - General Family Medicine 01/31/23 Patrick Sanchez MD [address] [place] [address] Department [place] [address] [email or web address] Historical LMR Provider 09/10/14 Keren Mabry MD 94 [place] [address] Historical LMR Provider 07/10/18 [place] [address] [place] [address] [email or web address] Historical LMR Provider 07/10/1807/29 Charly Saxena DO [address] [place] [address] Historical LMR Provider 07/10/18 Abhinav Muhammad MD 115 [facility] 104 [place] [address] [email or web address] Historical LMR Provider 07/10/18 08/22/20 Cheryl Giraldo NP 94 [place] [address] Historical LMR Provider 07/10/18 Wilfrido Steel MD [address] [place] [address] Historical LMR Provider 07/10/18 Sharon Martin PA-C 115 [facility] 104 [place] [address] [email or web address] Historical LMR Provider 07/10/18 08/22/20 Cash Fernandes MD 10 [place] [address] [email or web address] Gastroenterology 08/23/20 Seven Menchaca MD [address] [place] [address] [email or web address] Insurance Assigned Provider 08/04/22 08/03/23 Chavo Jack MD 40 [place] [address] [email or web address] Insurance Assigned Provider 08/03/23 05/04/24 Willi Wells MD [address] [place], [place] [address]R[place] [address] Rheumatology 02/04/24 Jose Thakur MD [address] [place] [address] [email or web address] Dedicated Driver Pulmonary Disease 03/17/24 Dana Rucker FNP 15 [facility], 2nd [place] [address] [email or web address] Nurse Practitioner Infectious Diseases 05/21/24 Jonathan Alvarez MD [address] [place] [address], [address] [place] [address] [email or web address] Urology 05/14/23 Anival Borja MD [address] [place] [address], [address] [place] [address] Neurologist Neurology 01/04/23 Lyndsay Reynoso FNP [address] [place] [address] [email or web address] Nurse Practitioner Pain Medicine 05/27/22 Gutierrez Pittman MD [address] [place] [phone] Heat Treater Head Cardiology 05/27/24 documented as of this encounter Additional Source Comments The information contained in this document represents components of the legal health record. It is not the complete legal health record.[facility]
--- OUTSIDE RECORDS SUMMARY | 2024-07-28 13:44 | XMS_ITS | Encounter Summary ---
Author Organization [facility] Address [address] [place] [address] Care Team Providers Care Pricing Lead Name Role Phone Charly Saxena Primary Care Provider [phone] Cheryl Calderon MD Primary Care Provider [phone] Encounter Details Date Type Department Care Team (Late st Contact Info) Description 07/06/2015 Orders Only [facility] Rheumatology [address] [place] [address] Abel Fierro MD 5 [place] [address] Social History Tobacco Use Types Packs/Day Years [...] - 0.99 mg/dL [facility] Comment: {CREATININE {[id number]) For patients >49 years of age, the reference limit for Creatinine is approximately 13% higher for people identified as -Australian. GFR 69 > OR = 60 mL/min/1. 73m2 [facility] Comment:{eGFR NON-AFR. AMERI CAN {[id number]) GFR () 81 > OR = 60 mL/min/1. 73m2 [facility] Comment:{eGFR AMERIC AN {[id number]) 07/06/2015 1:10 PM EST 07/07/2015 12:26 AM [...] needs for GFR calculation. Resulting Agency Comment [id number] us Abel Fierro MD LAB SAME DAY RESULT Final Resul t Performing Organization Address [facility] Co de Phone Number [facility] [address] [place] [address] * (ABNORMAL) ALANINE AMINOTRANSFERASE (ALT), SERUM (07/06/2015 1:10 PM EST) ALT (SGPT) 35(H) 6 - 29 U/L [facility] Comment:{ALT {[id number]) 07/06/2015 1:10 PM EST 07/07/2015 12:26 AM EST Narrative Resulting Agency Comment [id number] Abel Fierro MD LAB SAME DAY RESULT Final Resul t Performing Organization Address [facility] de Phone Number [facility] [address] [place] [address] * ASPARTATE AMINOTRANSFERASE (AST), SERUM (07/06/2015 1:10 PM EST) AST (SGOT) 24 10 - 35 U/L [facility] Comment:{AST {[id number]) 07/06/2015 1:10 PM EST 07/07/2015 12:26 AM EST Narrative Resulting Agency Comment [id number] Abel Fierro MD LAB SAME DAY RESULT Final Resul t Performing Organization Address [facility] de Phone Number [facility] [address] [place] [address] * (ABNORMAL) CBC INCLUDES DIFFERENTIAL AND PLATELET COUNT (07/06/2015 1:10 PM EST) WBC 9.5 3.8 - 10.8 Thousand/ uL [facility] Comment:{WHITE BLOOD CELL CO UNT {[id number]) RBC 5.89(H) 3.80 - 5.10 Million/u L [facility] Comment:{RED BLOOD CELL COUN T {[id number]) Hemoglobin 15.7(H) 11.7 - 15.5 g/dL [facility] Comment:{HEMOGLOBIN {[id number]) Hematocrit 48.6(H) 35.0 - 45.0 % [facility] Comment:{HEMATOCRIT {[id number]) MCV 82.5 80.0 - 100.0 fL [facility] Comment:{MCV {[id number]) MCH 26.7(L) 27.0 - 33.0 pg [facility] Comment:{MCH {[id number]) MCHC 32.3 32.0 - 36.0 g/dL [facility] Comment:{MCHC {[id number]) RDW 15.9(H) 11.0 - 15.0 % [facility] Comment:{RDW {[id number]) PLT 356 140 - 400 Thousand/ uL [facility] Comment:{PLATELET COUNT {[id number]) MPV 7.5 7.5 - 11.5 fL [facility] Comment:{MPV {[id number]) Neutrophils # 7999(H) 1500 - 7800 cells/uL [facility] Comment:{ABSOLUTE NEUTROPHIL S {[id number]) Lymphocytes # 979 850 - 3900 cells/uL [facility] Comment:{ABSOLUTE LYMPHOCYTE S {[id number]) Monocytes # 428 200 - 950 cells/uL [facility] Comment:{ABSOLUTE MONOCYTES {[id number]) Eosinophils # 48 15 - 500 cells/uL [facility] Comment:{ABSOLUTE EOSINOPHIL S {[id number]) Basophils # 48 0 - 200 cells/uL [facility] Comment:{ABSOLUTE BASOPHILS {[id number]) Neutrophils % 84.2 % [facility] Comment:{NEUTROPHILS {[id number]) Lymphocytes % 10.3 % [facility] Comment:{LYMPHOCYTES {[id number]) Monocytes % 4.5 % [facility] Comment:{MONOCYTES {[id number]) Eosinophils % 0.5 % [facility] Comment:{EOSINOPHILS {[id number]) Basophils % 0.5 % [facility] Comment:{BASOPHILS {[id number]) 07/06/2015 1:10 PM EST 07/07/2015 12:26 AM EST Narrative Resulting Agency Comment [id number] us Abel Fierro MD LAB SAME DAY RESULT Final Resul t [facility] [address] [place] [address] documented in this encounter Visit Diagnoses Diagnosis Rheumatoid arthritis involving both feet, unspecified rheumatoid factor presence (HCC) [M06.071, M06.072] documented in this encounter Care Teams Pricing Lead Relationship Specialty Start Date End Date Charly Saxena [facility] [address] [place] [address] PCP - General Internal Medicine 05/25/13 07/16/17 Cheryl Calderon MD [facility] [address] [place] [address] PCP - General Internal Medicine 07/17/17 documented as of this encounter
--- OUTSIDE RECORDS SUMMARY | 2024-07-28 13:44 | XMS_ITS | Encounter Summary ---
Author Organization [facility] Address [address] [place] [address] Care Team Providers Care Special Events Driver Name Role Phone Alberto Pacheco Primary Care Provider [phone] Charly Saxena Primary Care Provider [phone] Cheryl Calderon MD Primary Care Provider [phone] Encounter Details Date Type Department Care Team (Late st Contact Info) Description 10/28/2012 Orders Only [facility] Rheumatology [address] [place] [address] Abel Fierro MD 5 [place] [address] Social History Tobacco Use Types Packs/Day Years [...] of this encounter Procedures * Due to [place] state law, this [...] in this encounter Results * Due to [place] state law, this organization might not be sharing negative HIV tests. * CREATININE WITH GLOMERULAR FILTRATION RATE, ESTIMATED (EGFR) (10/28/2012 2:15 PM EDT) Creatinine 0.73 0.50 - 1.05 mg/dL [facility] Comment: {CREATININE {[id number]) For patients >49 years of age, the reference limit for Creatinine is approximately 13% higher for people identified as -Afghan. GFR 91 > OR = 60 mL/min/1. 73m2 [facility] Comment:{eGFR NON-AFR. AMERI CAN {[id number]) GFR () 106 > OR = 60 mL/min/1. 73m2 [facility] Comment:{eGFR AMERIC AN {[id number]) 10/28/2012 2:15 PM EDT 10/28/2012 11:59 PM [...] needs for GFR calculation. Resulting Agency Comment [id number] us Abel Fierro MD LAB SAME DAY RESULT Final Resul t [facility] [address] [place] [address] * ALANINE AMINOTRANSFERASE (ALT), SERUM (10/28/2012 2:15 PM EDT) ALT (SGPT) 21 6 - 29 U/L [facility] Comment:{ALT {[id number]) 10/28/2012 2:15 PM EDT 10/28/2012 11:59 PM EDT Narrative Resulting Agency Comment [id number] Abel Fierro MD LAB SAME DAY RESULT Final Resul t Performing Organization Address City/[facility]/ZIP Co de Phone Number [facility] [address] [place] [address] * ASPARTATE AMINOTRANSFERASE (AST), SERUM (10/28/2012 2:15 PM EDT) Pathologist [facility] AST (SGOT) 19 10 - 35 U/L [facility] Comment:{AST {[id number]) 10/28/2012 2:15 PM EDT 10/28/2012 11:59 PM EDT Narrative Resulting Agency Comment [id number] Abel Fierro MD LAB SAME DAY RESULT Final Resul t Performing Organization Address [facility] Co de Phone Number [facility] [address] [place] [address] * (ABNORMAL) CBC INCLUDES DIFFERENTIAL AND PLATELET COUNT (10/28/2012 2:15 PM EDT) Pathologist [facility] WBC 10.8 3.8 - 10.8 Thousand/ uL [facility] Comment:{WHITE BLOOD CELL CO UNT {[id number]) RBC 5.06 3.80 - 5.10 Million/u L [facility] Comment:{RED BLOOD CELL COUN T {[id number]) Hemoglobin 12.9 11.7 - 15.5 g/dL [facility] Comment:{HEMOGLOBIN {[id number]) Hematocrit 41.7 35.0 - 45.0 % [facility] Comment:{HEMATOCRIT {[id number]) MCV 82.5 80.0 - 100.0 fL [facility] Comment:{MCV {[id number]) MCH 25.5(L) 27.0 - 33.0 pg [facility] Comment:{MCH {[id number]) MCHC 31.0(L) 32.0 - 36.0 g/dL [facility] Comment:{MCHC {[id number]) RDW 14.6 11.0 - 15.0 % [facility] Comment:{RDW {[id number]) PLT 367 140 - 400 Thousand/ uL [facility] Comment:{PLATELET COUNT {[id number]) MPV 7.3(L) 7.5 - 11.5 fL [facility] Comment:{MPV {[id number]) Neutrophils # 5692 1500 - 7800 cells/uL [facility] Comment:{ABSOLUTE NEUTROPHIL S {[id number]) Lymphocytes # 3964(H) 850 - 3900 cells/uL [facility] Comment:{ABSOLUTE LYMPHOCYTE S {[id number]) Monocytes # 832 200 - 950 cells/uL [facility] Comment:{ABSOLUTE MONOCYTES {[id number]) Eosinophils # 248 15 - 500 cells/uL [facility] Comment:{ABSOLUTE EOSINOPHIL S {[id number]) Basophils # 65 0 - 200 cells/uL [facility] Comment:{ABSOLUTE BASOPHILS {[id number]) Neutrophils % 52.7 % [facility] Comment:{NEUTROPHILS {[id number]) Lymphocytes % 36.7 % [facility] Comment:{LYMPHOCYTES {[id number]) Monocytes % 7.7 % [facility] Comment:{MONOCYTES {[id number]) Eosinophils % 2.3 % [facility] Comment:{EOSINOPHILS {[id number]) Basophils % 0.6 % [facility] Comment:{BASOPHILS {[id number]) 10/28/2012 2:15 PM EDT 10/28/2012 11:59 PM EDT Narrative Resulting Agency Comment [id number] us Abel Fierro MD LAB SAME DAY RESULT Final Resul t [facility] [address] [place] [address] documented in this encounter Visit Diagnoses Diagnosis Rheumatoid arthritis(714.0) Rheumatoid arthritis documented in this encounter Care Teams Special Events Driver Relationship Specialty Start Date End Date Alberto Pacheco [address] [place] [address] PCP - General 07/19/08 05/24/13 Charly Saxena [facility] [address] [place] [address] PCP - General Internal Medicine 05/25/13 07/16/17 Cheryl Calderon MD [facility] [address] [place] [address] PCP - General Internal Medicine 07/17/17 documented as of this encounter
--- OUTSIDE RECORDS SUMMARY | 2024-07-28 13:44 | XMS_ITS | Encounter Summary ---
Author Organization [facility] Address [address] [place] [address] Care Team Providers Care Pain Management Nurse Name Role Phone Alberto Pacheco Primary Care Provider [phone] Charly Saxena Primary Care Provider [phone] Cheryl Calderon MD Primary Care Provider [phone] Encounter Details Date Type Department Care Team (Late st Contact Info) Description 08/05/2012 Orders Only [facility] Rheumatology [address] [place] [address] Abel Fierro MD [address] [place] [address] Social History Tobacco Use Types Packs/Day Years [...] - 1.05 mg/dL [facility] Comment: {CREATININE {[id number]) For patients >49 years of age, the reference limit for Creatinine is approximately 13% higher for people identified as -Azerbaijani. GFR 82 > OR = 60 mL/min/1. 73m2 [facility] Comment:{eGFR NON-AFR. AMERI CAN {[id number]) GFR () 95 > OR = 60 mL/min/1. 73m2 [facility] Comment:{eGFR AMERIC AN {[id number]) 08/05/2012 12:5 3 PM EDT 08/05/2012 4:46 [...] needs for GFR calculation. Resulting Agency Comment [id number] us Abel Fierro MD LAB SAME DAY RESULT Final Resul t [facility] [address] [place] [address] * (ABNORMAL) CBC INCLUDES DIFFERENTIAL AND PLATELET COUNT (08/05/2012 12:53 PM EDT) WBC 7.8 3.8 - 10.8 Thousand/ uL [facility] Comment:{WHITE BLOOD CELL CO UNT {[id number]) RBC 5.22(H) 3.80 - 5.10 Million/u L [facility] Comment:{RED BLOOD CELL COUN T {[id number]) Hemoglobin 14.0 11.7 - 15.5 g/dL [facility] Comment:{HEMOGLOBIN {[id number]) Hematocrit 44.8 35.0 - 45.0 % [facility] Comment:{HEMATOCRIT {[id number]) MCV 85.8 80.0 - 100.0 fL [facility] Comment:{MCV {[id number]) MCH 26.9(L) 27.0 - 33.0 pg [facility] Comment:{MCH {[id number]) MCHC 31.4(L) 32.0 - 36.0 g/dL [facility] Comment:{MCHC {[id number]) RDW 15.9(H) 11.0 - 15.0 % [facility] Comment:{RDW {[id number]) PLT 305 140 - 400 Thousand/ uL [facility] Comment:{PLATELET COUNT {[id number]) MPV 8.0 7.5 - 11.5 fL [facility] Comment:{MPV {[id number]) Neutrophils # 3237 1500 - 7800 cells/uL [facility] Comment:{ABSOLUTE NEUTROPHIL S {[id number]) Lymphocytes # 3229 850 - 3900 cells/uL [facility] Comment:{ABSOLUTE LYMPHOCYTE S {[id number]) Monocytes # 1014(H) 200 - 950 cells/uL [facility] Comment:{ABSOLUTE MONOCYTES {[id number]) Eosinophils # 273 15 - 500 cells/uL [facility] Comment:{ABSOLUTE EOSINOPHIL S {[id number]) Basophils # 47 0 - 200 cells/uL [facility] Comment:{ABSOLUTE BASOPHILS {[id number]) Neutrophils % 41.5 % [facility] Comment:{NEUTROPHILS {[id number]) Lymphocytes % 41.4 % [facility] Comment:{LYMPHOCYTES {[id number]) Monocytes % 13.0 % [facility] Comment:{MONOCYTES {[id number]) Eosinophils % 3.5 % [facility] Comment:{EOSINOPHILS {[id number]) Basophils % 0.6 % [facility] Comment:{BASOPHILS {[id number]) 08/05/2012 12:5 3 PM EDT 08/05/2012 4:46 PM EDT Narrative Resulting Agency Comment [id number] us Abel Fierro MD LAB SAME DAY RESULT Final Resul t Performing Organization Address City/[facility] Co de Phone Number [facility] [address] [place] [address] * ALANINE AMINOTRANSFERASE (ALT), SERUM (08/05/2012 12:53 PM EDT) ALT (SGPT) 18 6 - 40 U/L [facility] Comment:{ALT {[id number]) 08/05/2012 12:5 3 PM EDT 08/05/2012 4:46 PM EDT Narrative Resulting Agency Comment [id number] us Abel Fierro MD LAB SAME DAY RESULT Final Resul t Performing Organization Address [facility] Co de Phone Number [facility] [address] [place] [address] * ASPARTATE AMINOTRANSFERASE (AST), SERUM (08/05/2012 12:53 PM EDT) AST (SGOT) 17 10 - 35 U/L [facility] Comment:{AST {[id number]) 08/05/2012 12:5 3 PM EDT 08/05/2012 4:46 PM EDT Narrative Resulting Agency Comment [id number] us Abel Fierro MD LAB SAME DAY RESULT Final Resul t Performing Organization Address City/[facility] Co de Phone Number [facility] [address] [place] [address] documented in this encounter Visit Diagnoses Diagnosis Rheumatoid arthritis(714.0) Rheumatoid arthritis documented in this encounter Care Teams Pain Management Nurse Relationship Specialty Start Date End Date Alberto Pacheco [address] [place] [address] PCP - General 07/19/08 05/24/13 Charly Saxena [facility] [place] [address] PCP - General Internal Medicine 05/25/13 07/16/17 Cheryl Calderon MD [facility] Medicine [address] [place] [address] PCP - General Internal Medicine 07/17/17 documented as of this encounter
--- OUTSIDE RECORDS SUMMARY | 2024-07-28 13:44 | XMS_ITS | Encounter Summary ---
Author Organization [facility] Address [address] [place] [address] Care Team Providers Care Marriage And Family Therapist Name Role Phone Charly Saxena Primary Care Provider [phone] Cheryl Calderon MD Primary Care Provider [phone] Reason for Visit * Reason Comments F/u From OV Post injection f/u Encounter Details Date Type Department Care Team (Late st Contact Info) Description 10/24/2015 Telephone [facility] Rheumatology [address] [place] [address] Abel Fierro MD [address] [place] [address] F/u From OV (Post injection f/u ) [...] on filedocumented in this encounter Care Teams Marriage And Family Therapist Relationship Specialty Start Date End Date Charly Saxena [facility] [address] [place] [address] PCP - General Internal Medicine 05/25/13 07/16/17 Cheryl Calderon MD [facility] [address] [place] [address] PCP - General Internal Medicine 07/17/17 documented as of this encounter
--- OUTSIDE RECORDS SUMMARY | 2024-07-28 13:44 | XMS_ITS | Clinical Summary ---
Author Organization [facility] Address [address] [place] [address] Care Team Providers Care Mosaic Layer Name Role Phone Cheryl Calderon MD Primary Care Provider [phone] Allergies Active Allergy Reactions Criticality Noted Date [...] Name Administration Dates Next Due COVID-19, mRNA ([employer] Pre F all 2022) Monovalent, 30 mcg/0.3 ml 04/11/2021,10/03/2020,07/08/2020 Covid-19, mRNA ([employer] Pre F all 2022) Bivalent, 30 mcg/0.3 ml mohan-sucrose (12+) dose 04/13/2022 Covid-19, mRNA ([employer] Pre F all 2022) Monovalent, 30 mcg/0.3 [...] Zoster (Zostavax) Discontinued Procedures * Due to [place] state law, [...] to Health Maintenance Results * Due to [place] state law, this organization might not be sharing negative HIV tests. * COMPREHENSIVE EYE EXAM (01/23/2019) us Unknown Provider MINOR PROCEDURE Final Result * HEPATITIS C AB WITH REFLEX TO RNA PCR, SERUM (12/23/2018 11:32 AM EDT) Hepatitis C virus Ab NON-REACT MANOLO NON-REACT MANOLO [facility] Hepatitis C virus Ab Signal/Cutoff 0.01 <1.00 [facility] Comment: HCV antibody was non-reactive. There is no laboratory evidence of HCV infection. In most cases, no further action is required. However, if recent HCV exposure is suspected, a test for HCV RNA (test code 19333) is suggested. For additional information please refer to http://education.Family Pet/faq/XEH79r2 (This link is being provided for informational/ educational purposes only.) 12/23/2018 11:3 2 AM EDT 12/23/2018 11:23 PM EDT Narrative Resulting Agency Comment [id number] us Liliana Nehemiaszahiracatherine [facility] Final Result [facility] [address] [place] [address] * DXA BONE DENSITY STUDY AXIAL (LSSPINE, [...] X-RAY ABSORPTIOMETRY (DXA) SCAN: ?? DXA MODEL: HoloAhandyhand Discovery SL in fast scan mode RISK [...] RISK/LIPID PROFILE I (11/03/2004 9:46 AM EDT) [facility] CHOLESTEROL, TOTAL 191 100 - 199 MG/DL [facility] (CLIA# [id number]) TRIGLYCERIDES 132 30 - 149 MG/DL [facility] (CLIA# [id number]) HDL-CHOLESTEROL 85(H) 40 - 77 MG/DL [facility] (CLIA# [id number]) LDL-CHOLESTEROL 80 62 - 130 MG/DL [facility] (CLIA# [id number]) Comment: RISK CATEGORY: ??LDL-CHOLESTEROL GOAL CHD AND CHD RISK EQUIVALENTS: ??<100 MULTIPLE (2+) FACTORS: ??<130 ZERO TO ONE RISK FACTOR: ??<160 CHD RELATIVE RISK RATIO (TOTAL/HDL) 2.25 [facility] (CL[facility]# [id number]) Comment:(< .25 X AVERAGE) 11/03/2004 9:46 AM EDT 11/03/2004 9:46 AM EDT N[facility]ative [facility] [id number][facility] - 11/03/2004 9:46 AM EDT FASTING us Abel Fierro MD LABORATORY Final Result Performing Organization Address [facility] Co de Phone Number [facility] (CLIA# [id number]) [address] [place] [address] * XRAY CHEST 2 VIEWS PA & LAT (06/28/2003 1:26 PM EST) [facility] RADIOLOGY REPORT Chest: Lungs and pleural [...] Conclusion: No acute disease. [facility] (CLIA# [id number]) Anatomical Region Laterality Modality Other 06/28/2003 1:26 [...] the interpreting radiologist. BI-RADS Category 1: Negative [facility] (CLIA# [id number]) LETTER SENT A mammogram letter type A N was printed on 07/08/2001 [facility] (CLIA# [id number]) Anatomical Region Laterality Modality Other 06/25/2001 1:42 PM EST Charly Saxena [facility]- OTHER Final Res ult * [...] polyp was seen. [facility] (CLIA# [id number]) Anatomical Region Laterality Modality Other 06/07/2000 8:40 AM EST Narrative 06/07/2000 2:57 PM EST Reason for Study/History: ABD PAIN Test(s) processed by : [facility] Jeff Puente PA-C CONTRAST STUDY- OTHER Elana l Result * PAP SMEAR (12/06/1999 12:00 AM EDT) SPERM SOURCE VCE [facility] (CLIA# [id number]) NUMBER OF SLIDES RECEIVED: 1 [facility] (CLIA# [id number]) HISTORY CLINICAL [facility] (CLIA# [id number]) Comment:Menopause [address] [facility] (CLIA# [id number]) Comment:Endocervical cells a re present SPECIMEN ADEQUACY: [facility] (CLIA# [id number]) Comment:Satisfactory specime n for Cytologic evaluation. PATHOLOGY DIAGNOSIS [facility] (CLIA# [id number]) Comment:WITHIN NORMAL LIMITS PATHOLOGY GROUP: [facility] (CLIA# [id number]) Comment: [address] [place]. [address] 12/06/1999 12/06/1999 Chloe Law MD PATHOLOGY Final Resul t [facility] (CLIA# [id number]) [address] [place] [address] from Last 3 Months or Most Recently Relevant to Health Maintenance Insurance , [address] [place] [address] MEDICARE PART B [facility] FFS FEDERAL Care Teams Mosaic Layer Relationship Specialty Start Date End Date Cheryl Calderon MD [facility] Adult Medicine [address] [place] [address] PCP - General Internal Medicine 07/17/17
--- OUTSIDE RECORDS SUMMARY | 2024-07-28 13:44 | XMS_ITS | Encounter Summary ---
Author Organization [facility] Address [address] [place] [address] Care Team Providers Care Casework Manager Name Role Phone Charly Saxena Primary Care Provider [phone] Cheryl Calderon MD Primary Care Provider Encounter Details Date Type Department Care Team (Late st Contact Info) Description 06/13/2015 Orders Only [facility] Rheumatology [address] [place] [address] Abel Fierro MD [address] [place] [address] Social History Tobacco Use Types Packs/Day Years [...] of this encounter Results * Due to [place] state law, this organization might not be [...] presence documented in this encounter Care Teams Casework Manager Relationship Specialty Start Date End Date Charly Saxena [facility] [place] [address] PCP - General Internal Medicine 05/25/13 07/16/17 Cheryl Calderon MD [facility] Adult Medicine [address] [place] [address] PCP - General Internal Medicine 07/17/17 documented as of this encounter
--- OUTSIDE RECORDS SUMMARY | 2024-07-28 13:44 | XMS_ITS | Encounter Summary ---
Author Organization [facility] Address [address] [place] [address] Care Team Providers Care Trust Clerk Name Role Phone Alberto Pacheco Primary Care Provider [phone] Charly Saxena Primary Care Provider [phone] Cheryl Calderon MD Primary Care Provider [phone] Encounter Details Date Type Department Care Team (Late st Contact Info) Description 01/23/2013 Orders Only [facility] Rheumatology [address] [place] [address] Abel Fierro MD [address] [place] [address] Social History Tobacco Use Types Packs/Day Years [...] DIAGNOSTICS Comment:{SED RATE BY MODIFIE D KUNAL {[id number]) 01/23/2013 4:26 PM EDT 01/23/2013 11:06 PM EDT Narrative Resulting Agency Comment [id number] us Abel Fierro MD LAB SAME DAY RESULT Final Resul t Performing Organization Address City/State/[facility] Co de Phone Number [facility] [address] [place] [address] * C-REACTIVE PROTEIN (CRP) - INFLAMMATION (01/23/2013 4:26 PM EDT) C reactive protein 0.49 <0.80 mg/dL [facility] Comment: {C-REACTIVE PROTEIN {[id number]) Please be advised that patients taking Carboxypenicillins may exhibit falsely decreased C-Reactive Protein levels due to an analytical interference in this assay. 01/23/2013 4:26 PM EDT 01/23/2013 11:06 PM EDT Narrative Resulting Agency Comment [id number] us Abel Fierro MD LABORATORY Final Result Performing Organization Address [facility] Co de Phone Number [facility] [address] [place] [address] * CREATININE WITH GLOMERULAR FILTRATION RATE, ESTIMATED (EGFR) (01/23/2013 4:26 PM EDT) Creatinine 0.81 0.50 - 1.05 mg/dL [facility] Comment: {CREATININE {[id number]) For patients >49 years of age, the reference limit for Creatinine is approximately 13% higher for people identified as -Brazilian. GFR 80 > OR = 60 mL/min/1. 73m2 [facility] Comment:{eGFR NON-AFR. AMERI CAN {[id number]) GFR () 93 > OR = 60 mL/min/1. 73m2 [facility] Comment:{eGFR AMERIC AN {[id number]) 01/23/2013 4:26 PM EDT 01/23/2013 11:06 PM [...] needs for GFR calculation. Resulting Agency Comment [id number] us Abel Fierro MD LAB SAME DAY RESULT Final Resul t Performing Organization Address [facility] Co de Phone Number [facility] [address] [place] [address] * (ABNORMAL) CBC INCLUDES DIFFERENTIAL AND PLATELET COUNT (01/23/2013 4:26 PM EDT) WBC 7.3 3.8 - 10.8 Thousand/ uL [facility] Comment:{WHITE BLOOD CELL CO UNT {[id number]) RBC 5.80(H) 3.80 - 5.10 Million/u L [facility] Comment:{RED BLOOD CELL COUN T {[id number]) Hemoglobin 15.0 11.7 - 15.5 g/dL [facility] Comment:{HEMOGLOBIN {[id number]) Hematocrit 47.0(H) 35.0 - 45.0 % [facility] Comment:{HEMATOCRIT {[id number]) MCV 81.1 80.0 - 100.0 fL [facility] Comment:{MCV {[id number]) MCH 25.9(L) 27.0 - 33.0 pg [facility] Comment:{MCH {[id number]) MCHC 31.9(L) 32.0 - 36.0 g/dL [facility] Comment:{MCHC {[id number]) RDW 16.0(H) 11.0 - 15.0 % [facility] Comment:{RDW {[id number]) PLT 327 140 - 400 Thousand/ uL [facility] Comment:{PLATELET COUNT {[id number]) MPV 7.8 7.5 - 11.5 fL [facility] Comment:{MPV {[id number]) Neutrophils # 3548 1500 - 7800 cells/uL [facility] Comment:{ABSOLUTE NEUTROPHIL S {[id number]) Lymphocytes # 2745 850 - 3900 cells/uL [facility] Comment:{ABSOLUTE LYMPHOCYTE S {[id number]) Monocytes # 767 200 - 950 cells/uL [facility] Comment:{ABSOLUTE MONOCYTES {[id number]) Eosinophils # 190 15 - 500 cells/uL [facility] Comment:{ABSOLUTE EOSINOPHIL S {[id number]) Basophils # 51 0 - 200 cells/uL [facility] Comment:{ABSOLUTE BASOPHILS {[id number]) Neutrophils % 48.6 % [facility] Comment:{NEUTROPHILS {[id number]) Lymphocytes % 37.6 % [facility] Comment:{LYMPHOCYTES {[id number]) Monocytes % 10.5 % [facility] Comment:{MONOCYTES {[id number]) Eosinophils % 2.6 % [facility] Comment:{EOSINOPHILS {[id number]) Basophils % 0.7 % [facility] Comment:{BASOPHILS {[id number]) 01/23/2013 4:26 PM EDT 01/23/2013 11:06 PM EDT Narrative Resulting Agency Comment [id number] us Abel Fierro MD LAB SAME DAY RESULT Final Resul t Performing Organization Address [facility] de Phone Number [facility] [address] [place] [address] * ASPARTATE AMINOTRANSFERASE (AST), SERUM (01/23/2013 4:26 PM EDT) AST (SGOT) 22 10 - 35 U/L [facility] Comment:{AST {[id number]) 01/23/2013 4:26 PM EDT 01/23/2013 11:06 PM EDT Narrative Resulting Agency Comment [id number] us Abel Fierro MD LAB SAME DAY RESULT Final Resul t Performing Organization Address [facility] de Phone Number [facility] [address] [place] [address] * ALANINE AMINOTRANSFERASE (ALT), SERUM (01/23/2013 4:26 PM EDT) ALT (SGPT) 21 6 - 29 U/L [facility] Comment:{ALT {[id number]) 01/23/2013 4:26 PM EDT 01/23/2013 11:06 PM EDT Narrative Resulting Agency Comment [id number] Abel Fierro MD LAB SAME DAY RESULT Final Resul t Performing Organization Address [facility] de Phone Number [facility] [address] [place] [address] documented in this encounter Visit Diagnoses Diagnosis Rheumatoid arthritis(714.0) Rheumatoid arthritis documented in this encounter Care Teams Trust Clerk Relationship Specialty Start Date End Date Alberto Pacheco [address] [place] [address] PCP - General 07/19/08 05/24/13 Charly Saxena [facility] [address] [place] [address] PCP - General Internal Medicine 05/25/13 07/16/17 Cheryl Calderon MD [facility] Medicine [address] [place] [address] PCP - General Internal Medicine 07/17/17 documented as of this encounter
--- OUTSIDE RECORDS SUMMARY | 2024-07-28 13:44 | XMS_ITS | Encounter Summary ---
Author Organization [facility] Address [address] [place] [address] Care Team Providers Care Malt Liquors Sales Representative Name Role Phone Charly Saxena Primary Care Provider [phone] Cheryl Calderon MD Primary Care Provider [phone] Encounter Details Date Type Department Care Team (Late st Contact Info) Description 02/10/2015 Orders Only [facility] Rheumatology [address] [place] [address] Abel Fierro MD [address] [place] [address] Social History Tobacco Use Types Packs/Day Years [...] EDT) C reactive protein 0.45 <0.80 mg/dL [facility] Comment: {C-REACTIVE PROTEIN {[id number]) Please be advised that patients taking Carboxypenicillins may exhibit falsely decreased C-Reactive Protein levels due to an analytical interference in this assay. 02/10/2015 12:2 9 PM EDT 02/10/2015 9:25 PM EDT Narrative Resulting Agency Comment [id number] us Abel Fierro MD LABORATORY Final Result Performing Organization Address [facility] Co de Phone Number [facility] [address] [place] [address] * ERYTHROCYTE SEDIMENTATION RATE (ESR), WESTERGREN (02/10/2015 12:29 PM EDT) Sedimentation Rate [place] (ESR) 6 < OR = 30 mm/h [facility] Comment:{SED RATE BY MODIFIE D WESTERGREN {[id number]) 02/10/2015 12:2 9 PM EDT 02/10/2015 9:25 PM EDT Narrative Resulting Agency Comment [id number] us Abel Fierro MD LAB SAME DAY RESULT Final Resul t Performing Organization Address [facility] de Phone Number [facility] [address] [place] [address] * CREATININE WITH GLOMERULAR FILTRATION RATE, ESTIMATED (EGFR) (02/10/2015 12:29 PM EDT) Creatinine 0.80 0.50 - 0.99 mg/dL [facility] Comment: {CREATININE {[id number]) For patients >49 years of age, the reference limit for Creatinine is approximately 13% higher for people identified as -Bulgarian. GFR 80 > OR = 60 mL/min/1. 73m2 [facility] Comment:{eGFR NON-AFR. AMERI CAN {[id number]) GFR () 93 > OR = 60 mL/min/1. 73m2 [facility] Comment:{eGFR AMERIC AN {[id number]) 02/10/2015 12:2 9 PM EDT 02/10/2015 9:25 [...] needs for GFR calculation. Resulting Agency Comment [id number] Abel Fierro MD LAB SAME DAY RESULT Final Resul t Performing Organization Address [facility] de Phone Number [facility] [address] [place] [address] * (ABNORMAL) ALANINE AMINOTRANSFERASE (ALT), SERUM (02/10/2015 12:29 PM EDT) ALT (SGPT) 37(H) 6 - 29 U/L [facility] Comment:{ALT {[id number]) 02/10/2015 12:2 9 PM EDT 02/10/2015 9:25 PM EDT Narrative Resulting Agency Comment [id number] Abel Fierro MD LAB SAME DAY RESULT Final Resul t Performing Organization Address [facility] de Phone Number [facility] [address] [place] [address] * ASPARTATE AMINOTRANSFERASE (AST), SERUM (02/10/2015 12:29 PM EDT) AST (SGOT) 26 10 - 35 U/L [facility] Comment:{AST {[id number]) 02/10/2015 12:2 9 PM EDT 02/10/2015 9:25 PM EDT Narrative Resulting Agency Comment [id number] Abel Fierro MD LAB SAME DAY RESULT Final Resul t Performing Organization Address [facility] de Phone Number [facility] [address] [place] [address] * (ABNORMAL) CBC INCLUDES DIFFERENTIAL AND PLATELET COUNT (02/10/2015 12:29 PM EDT) WBC 10.5 3.8 - 10.8 Thousand/ uL [facility] Comment:{WHITE BLOOD CELL CO UNT {[id number]) RBC 6.07(H) 3.80 - 5.10 Million/u L [facility] Comment:{RED BLOOD CELL COUN T {[id number]) Hemoglobin 15.7(H) 11.7 - 15.5 g/dL [facility] Comment:{HEMOGLOBIN {[id number]) Hematocrit 48.6(H) 35.0 - 45.0 % [facility] Comment:{HEMATOCRIT {[id number]) MCV 80.1 80.0 - 100.0 fL [facility] Comment:{MCV {[id number]) MCH 25.8(L) 27.0 - 33.0 pg [facility] Comment:{MCH {[id number]) MCHC 32.2 32.0 - 36.0 g/dL [facility] Comment:{MCHC {[id number]) RDW 15.6(H) 11.0 - 15.0 % [facility] Comment:{RDW {[id number]) PLT 347 140 - 400 Thousand/ uL [facility] Comment:{PLATELET COUNT {[id number]) MPV 7.6 7.5 - 11.5 fL [facility] Comment:{MPV {[id number]) Neutrophils # 7455 1500 - 7800 cells/uL [facility] Comment:{ABSOLUTE NEUTROPHIL S {[id number]) Lymphocytes # 1932 850 - 3900 cells/uL [facility] Comment:{ABSOLUTE LYMPHOCYTE S {[id number]) Monocytes # 861 200 - 950 cells/uL [facility] Comment:{ABSOLUTE MONOCYTES {[id number]) Eosinophils # 221 15 - 500 cells/uL [facility] Comment:{ABSOLUTE EOSINOPHIL S {[id number]) Basophils # 32 0 - 200 cells/uL [facility] Comment:{ABSOLUTE BASOPHILS {[id number]) Neutrophils % 71.0 % [facility] Comment:{NEUTROPHILS {[id number]) Lymphocytes % 18.4 % [facility] Comment:{LYMPHOCYTES {[id number]) Monocytes % 8.2 % [facility] Comment:{MONOCYTES {[id number]) Eosinophils % 2.1 % [facility] Comment:{EOSINOPHILS {[id number]) Basophils % 0.3 % [facility] Comment:{BASOPHILS {[id number]) 02/10/2015 12:2 9 PM EDT 02/10/2015 9:25 PM EDT Narrative Resulting Agency Comment [id number] us Abel Fierro MD LAB SAME DAY RESULT Final Resul t [facility] [address] [place] [address] documented in this encounter Visit Diagnoses Diagnosis Rheumatoid arthritis involving both feet, unspecified rheumatoid factor presence (HCC) [M06.071, M06.072] documented in this encounter Care Teams Malt Liquors Sales Representative Relationship Specialty Start Date End Date Charly Saxena [facility] [address] [place] [address] PCP - General Internal Medicine 05/25/13 07/16/17 Cheryl Calderon MD [facility] Medicine [address] [place] [address] PCP - General Internal Medicine 07/17/17 documented as of this encounter
--- OUTSIDE RECORDS SUMMARY | 2024-07-28 13:44 | XMS_ITS | Encounter Summary ---
Author Organization [facility] Address [address] [place] [address] Care Team Providers Care Cloth Washer Name Role Phone Charly Saxena Primary Care Provider [phone] Cheryl Calderon MD Primary Care Provider [phone] Encounter Details Date Type Department Care Team (Late st Contact Info) Description 05/25/2013 Orders Only [facility] Rheumatology [address] [place] [address] Abel Fierro MD [address] [place] [address] Social History Tobacco Use Types Packs/Day Years [...] - 1.05 mg/dL [facility] Comment: {CREATININE {[id number]) For patients >49 years of age, the reference limit for Creatinine is approximately 13% higher for people identified as -Guinean. GFR 70 > OR = 60 mL/min/1. 73m2 [facility] Comment:{eGFR NON-AFR. AMERI CAN {[id number]) GFR () 82 > OR = 60 mL/min/1. 73m2 [facility] Comment:{eGFR AMERIC AN {[id number]) 05/25/2013 2:20 PM EST 05/25/2013 6:51 PM [...] needs for GFR calculation. Resulting Agency Comment [id number] us Abel Fierro MD LAB SAME DAY RESULT Final Resul t [facility] [address] [place] [address] * (ABNORMAL) CBC INCLUDES DIFFERENTIAL AND PLATELET COUNT (05/25/2013 2:20 PM EST) WBC 14.5(H) 3.8 - 10.8 Thousand/ uL [facility] Comment:{WHITE BLOOD CELL CO UNT {[id number]) RBC 5.63(H) 3.80 - 5.10 Million/u L [facility] Comment:{RED BLOOD CELL COUN T {[id number]) Hemoglobin 14.6 11.7 - 15.5 g/dL [facility] Comment:{HEMOGLOBIN {[id number]) Hematocrit 46.7(H) 35.0 - 45.0 % [facility] Comment:{HEMATOCRIT {[id number]) MCV 82.8 80.0 - 100.0 fL [facility] Comment:{MCV {[id number]) MCH 26.0(L) 27.0 - 33.0 pg [facility] Comment:{MCH {[id number]) MCHC 31.4(L) 32.0 - 36.0 g/dL [facility] Comment:{MCHC {[id number]) RDW 15.0 11.0 - 15.0 % [facility] Comment:{RDW {[id number]) PLT 395 140 - 400 Thousand/ uL [facility] Comment:{PLATELET COUNT {[id number]) MPV 7.4(L) 7.5 - 11.5 fL [facility] Comment:{MPV {[id number]) Neutrophils # 70928(H) 1500 - 7800 cells/uL [facility] Comment:{ABSOLUTE NEUTROPHIL S {[id number]) Lymphocytes # 1291 850 - 3900 cells/uL [facility] Comment:{ABSOLUTE LYMPHOCYTE S {[id number]) Monocytes # 595 200 - 950 cells/uL [facility] Comment:{ABSOLUTE MONOCYTES {[id number]) Eosinophils # 102 15 - 500 cells/uL [facility] Comment:{ABSOLUTE EOSINOPHIL S {[id number]) Basophils # 29 0 - 200 cells/uL [facility] Comment:{ABSOLUTE BASOPHILS {[id number]) Neutrophils % 86.1 % [facility] Comment:{NEUTROPHILS {[id number]) Lymphocytes % 8.9 % [facility] Comment:{LYMPHOCYTES {[id number]) Monocytes % 4.1 % [facility] Comment:{MONOCYTES {[id number]) Eosinophils % 0.7 % [facility] Comment:{EOSINOPHILS {[id number]) Basophils % 0.2 % [facility] Comment:{BASOPHILS {[id number]) 05/25/2013 2:20 PM EST 05/25/2013 6:51 PM EST Narrative Resulting Agency Comment [id number] us Abel Fierro MD LAB SAME DAY RESULT Final Resul t Performing Organization Address City/[facility] Co de Phone Number [facility] [address] [place] [address] * ALANINE AMINOTRANSFERASE (ALT), SERUM (05/25/2013 2:20 PM EST) ALT (SGPT) 21 6 - 29 U/L [facility] Comment:{ALT {[id number]) 05/25/2013 2:20 PM EST 05/25/2013 6:51 PM EST Narrative Resulting Agency Comment [id number] us Abel Feirro MD LAB SAME DAY RESULT Final Resul t Performing Organization Address [facility] de Phone Number [facility] [address] [place] [address] * ASPARTATE AMINOTRANSFERASE (AST), SERUM (05/25/2013 2:20 PM EST) AST (SGOT) 21 10 - 35 U/L [facility] Comment:{AST {[id number]) 05/25/2013 2:20 PM EST 05/25/2013 6:51 PM EST Narrative Resulting Agency Comment [id number] Abel Fierro MD LAB SAME DAY RESULT Final Resul t Performing Organization Address [facility] de Phone Number [facility] [address] [place] [address] documented in this encounter Visit Diagnoses Diagnosis Rheumatoid arthritis(714.0) Rheumatoid arthritis documented in this encounter Care Teams Cloth Washer Relationship Specialty Start Date End Date Charly Saxena [facility] [address] [place] [address] PCP - General Internal Medicine 05/25/13 07/16/17 Cheryl Calderon MD [facility] Medicine [address] [place] [address] PCP - General Internal Medicine 07/17/17 documented as of this encounter
--- OUTSIDE RECORDS SUMMARY | 2024-07-28 13:44 | XMS_ITS | Encounter Summary ---
Author Organization [facility] Address [address] [place] [address] Care Team Providers Care Tracer Bullet Section Supervisor Name Role Phone Alberto Pacheco Primary Care Provider [phone] Unknown Pcp, Non Rmg Primary Care Provider Unava ilCharly Antoine Primary Care Provider [phone] Charly Saxena Primary Care Provider Cheryl Calderon MD Primary Care Provider Encounter Details Date Type Department Care Team (Late st Contact Info) Description 03/14/2006 Orders Only [facility] Rheumatology [address] [place] [address] Nikkie Moss, HOOK PULLER [address] [place], [place] [id number] Social History Tobacco Use Types Packs/Day Years [...] on filedocumented in this encounter Care Teams Tracer Bullet Section Supervisor Relationship Specialty Start Date End Date Alberto Pacheco [address] [place] [address] PCP - General 07/19/08 05/24/13 Unknown Pcp, Non Rmg PCP - General 06/30/08 07/18/08 Charly Saxena [facility] [address] [place] [address] PCP - General 01/18/06 06/29/08 Charly Saxena [facility] [address] [place] [address] PCP - General Internal Medicine 05/25/13 07/16/17 Cheryl Calderon MD [facility] [address] [place] [address] PCP - General Internal Medicine 07/17/17 documented as of this encounter
--- OUTSIDE RECORDS SUMMARY | 2024-07-28 13:44 | XMS_ITS | Encounter Summary ---
Author Organization [facility] Address [address] [place] [address] Care Team Providers Care General Manager Name Role Phone Charly Saxena Primary Care Provider [phone] Cheryl Calderon MD Primary Care Provider [phone] Encounter Details Date Type Department Care Team (Late st Contact Info) Description 05/25/2013 Orders Only [facility] Rheumatology [address] [place] [address] Abel Fierro MD [address] [place] [address] Social History Tobacco Use Types Packs/Day Years [...] <0.80 mg/dL [facility] Comment: {C-REACTIVE PROTEIN {[id number]) Please be advised that patients taking Carboxypenicillins may exhibit falsely decreased C-Reactive Protein levels due to an analytical interference in this assay. 05/25/2013 3:30 PM EST 05/25/2013 6:52 PM EST Narrative Resulting Agency Comment [id number] us Abel Fierro MD LABORATORY Final Result Performing Organization Address [facility] de Phone Number [facility] [address] [place] [address] * (ABNORMAL) ERYTHROCYTE SEDIMENTATION RATE (ESR), SHAJIREN (05/25/2013 3:30 PM EST) Sedimentation Rate [place] (ESR) 32(H) < OR = 30 mm/h [facility] Comment:{SED RATE BY MODIFIE D KUNAL {[id number]) 05/25/2013 3:30 PM EST 05/25/2013 6:52 PM EST Narrative Resulting Agency Comment [id number] us Abel Fierro MD LAB SAME DAY RESULT Final Resul t Performing Organization Address [facility] de Phone Number [facility] [address] [place] [address] documented in this encounter Visit Diagnoses Diagnosis Rheumatoid arthritis(714.0) Rheumatoid arthritis documented in this encounter Care Teams General Manager Relationship Specialty Start Date End Date Charly Saxena [facility], [facility] [place], [place] [id number] PCP - General Internal Medicine 05/25/13 07/16/17 Cheryl Calderon MD [facility] Adult Medicine [address] [place] [address] [place] [address] PCP - General Internal Medicine 07/17/17 documented as of this encounter
--- OUTSIDE RECORDS SUMMARY | 2024-07-28 13:44 | XMS_ITS | Encounter Summary ---
Author Organization [facility] Address [address] [place] [address] Care Team Providers Care Director Of Strategic Communications Name Role Phone Charly Saxena Primary Care Provider [phone] Cheryl Calderon MD Primary Care Provider [phone] Encounter Details Date Type Department Care Team (Late st Contact Info) Description 01/18/2016 Orders Only [facility] Rheumatology [address] [place] [address] Abel Fierro MD [address] [place] [address] Social History Tobacco Use Types Packs/Day Years [...] - 0.99 mg/dL [facility] Comment: {CREATININE {[id number]) For patients >49 years of age, the reference limit for Creatinine is approximately 13% higher for people identified as -Mosotho. GFR 81 > OR = 60 mL/min/1. 73m2 [facility] Comment:{eGFR NON-AFR. AMERI CAN {[id number]) GFR () 94 > OR = 60 mL/min/1. 73m2 [facility] Comment:{eGFR AMERIC AN {[id number]) 01/18/2016 1:17 PM EDT 01/18/2016 9:39 PM [...] needs for GFR calculation. Resulting Agency Comment [id number] us Abel Fierro MD LAB SAME DAY RESULT Final Resul t [facility] [address] [place] [address] * (ABNORMAL) ALANINE AMINOTRANSFERASE (ALT), SERUM (01/18/2016 1:17 PM EDT) ALT (SGPT) 48(H) 6 - 29 U/L [facility] Comment:{ALT {[id number]) 01/18/2016 1:17 PM EDT 01/18/2016 9:39 PM EDT Narrative Resulting Agency Comment [id number] us Abel Fierro MD LAB SAME DAY RESULT Final Resul t Performing Organization Address City/[facility] Co de Phone Number [facility] [address] [place] [address] * ASPARTATE AMINOTRANSFERASE (AST), SERUM (01/18/2016 1:17 PM EDT) AST (SGOT) 27 10 - 35 U/L [facility] Comment:{AST {[id number]) 01/18/2016 1:17 PM EDT 01/18/2016 9:39 PM EDT Narrative Resulting Agency Comment [id number] us Abel Fierro MD LAB SAME DAY RESULT Final Resul t Performing Organization Address [facility] Co de Phone Number [facility] [address] [place] [address] * (ABNORMAL) CBC INCLUDES DIFFERENTIAL AND PLATELET COUNT (01/18/2016 1:17 PM EDT) WBC 11.4(H) 3.8 - 10.8 Thousand/ uL [facility] Comment:{WHITE BLOOD CELL CO UNT {[id number]) RBC 5.40(H) 3.80 - 5.10 Million/u L [facility] Comment:{RED BLOOD CELL COUN T {[id number]) Hemoglobin 14.3 11.7 - 15.5 g/dL [facility] Comment:{HEMOGLOBIN {[id number]) Hematocrit 45.8(H) 35.0 - 45.0 % [facility] Comment:{HEMATOCRIT {[id number]) MCV 84.8 80.0 - 100.0 fL [facility] Comment:{MCV {[id number]) MCH 26.5(L) 27.0 - 33.0 pg [facility] Comment:{MCH {[id number]) MCHC 31.3(L) 32.0 - 36.0 g/dL [facility] Comment:{MCHC {[id number]) RDW 16.5(H) 11.0 - 15.0 % [facility] Comment:{RDW {[id number]) PLT 289 140 - 400 Thousand/ uL [facility] Comment:{PLATELET COUNT {[id number]) MPV 8.4 7.5 - 11.5 fL [facility] Comment:{MPV {[id number]) Neutrophils # 9793(H) 1500 - 7800 cells/uL [facility] Comment:{ABSOLUTE NEUTROPHIL S {[id number]) Lymphocytes # 809(L) 850 - 3900 cells/uL [facility] Comment:{ABSOLUTE LYMPHOCYTE S {[id number]) Monocytes # 638 200 - 950 cells/uL [facility] Comment:{ABSOLUTE MONOCYTES {[id number]) Eosinophils # 91 15 - 500 cells/uL [facility] Comment:{ABSOLUTE EOSINOPHIL S {[id number]) Basophils # 68 0 - 200 cells/uL [facility] Comment:{ABSOLUTE BASOPHILS {[id number]) Neutrophils % 85.9 % [facility] Comment:{NEUTROPHILS {[id number]) Lymphocytes % 7.1 % [facility] Comment:{LYMPHOCYTES {[id number]) Monocytes % 5.6 % [facility] Comment:{MONOCYTES {[id number]) Eosinophils % 0.8 % [facility] Comment:{EOSINOPHILS {[id number]) Basophils % 0.6 % [facility] Comment:{BASOPHILS {[id number]) 01/18/2016 1:17 PM EDT 01/18/2016 9:39 PM EDT Narrative Resulting Agency Comment [id number] us Abel Fierro MD LAB SAME DAY RESULT Final Resul t [facility] [address] [place] [address] documented in this encounter Visit Diagnoses Diagnosis Rheumatoid arthritis involving multiple sites with positive rheumatoid factor (HCC) [M05.79] documented in this encounter Care Teams Director Of Strategic Communications Relationship Specialty Start Date End Date Charly Saxena [facility] [address] [place] [address] PCP - General Internal Medicine 05/25/13 07/16/17 Cheryl Calderon MD [facility] [address] [place] [address] PCP - General Internal Medicine 07/17/17 documented as of this encounter
--- OUTSIDE RECORDS SUMMARY | 2024-07-28 13:44 | XMS_ITS | Encounter Summary ---
Author Organization [facility] Address [address] [place] [address] Care Team Providers Care Room Clerk Name Role Phone Alberto Pacheco Primary Care Provider [phone] Charly Saxena Primary Care Provider [phone] Cheryl Calderon MD Primary Care Provider [phone] Reason for Visit * Reason Comments E-prescribing Refill Request Encounter Details Date Type Department Care Team (Late st Contact Info) Description 05/11/2013 Refill [facility] Rheumatology [address] [place] [phone] Anival Bales MD E-prescribing Refill Request Social [...] of her nearly 4-year-old grandson Harshil in [place]. Next OV: Future Appointments Date Time Provider [...] on filedocumented in this encounter Care Teams Room Clerk Relationship Specialty Start Date End Date Alberto Pacheco [address] [place] [address] PCP - General 07/19/08 05/24/13 Charly Saxena [facility] [address] [place] [address] PCP - General Internal Medicine 05/25/13 07/16/17 Cheryl Calderon MD [facility] Adult Medicine [address] [place] [address] PCP - General Internal Medicine 07/17/17 documented as of this encounter
--- OUTSIDE RECORDS SUMMARY | 2024-07-28 13:44 | XMS_ITS | Encounter Summary ---
Author Organization [facility] Address [address] [place] [address] Care Team Providers Care Staff Certified Nurse Midwife Name Role Phone Charly Saxena Primary Care Provider Cheryl Calderon MD Primary Care Provider [phone] Encounter Details Date Type Department Care Team (Late st Contact Info) Description 05/25/2013 Orders Only [facility] Rheumatology [address] [place] [address] Abel Fierro MD [address] [place] [address] Social History Tobacco Use Types Packs/Day Years [...] <0.80 mg/dL [facility] Comment: {C-REACTIVE PROTEIN {[id number]) Please be advised that patients taking Carboxypenicillins may exhibit falsely decreased C-Reactive Protein levels due to an analytical interference in this assay. 05/25/2013 3:30 PM EST 05/25/2013 6:52 PM EST Narrative Resulting Agency Comment [id number] us Abel Fierro MD LABORATORY Final Result Performing Organization Address City/[facility] Co de Phone Number [facility] [address] [place] [address] * (ABNORMAL) ERYTHROCYTE SEDIMENTATION RATE (ESR), KUNAL (05/25/2013 3:30 PM EST) Sedimentation Rate [place] (ESR) 32(H) < OR = 30 mm/h [facility] Comment:{SED RATE BY JONATHAN SYED {[id number]) 05/25/2013 3:30 PM EST 05/25/2013 6:52 PM EST Narrative Resulting Agency Comment [id number] us Abel Fierro MD LAB SAME DAY RESULT Final Resul t Performing Organization Address [facility] Co de Phone Number [facility] [address] [place] [address] documented in this encounter Visit Diagnoses Diagnosis Rheumatoid arthritis(714.0)- Primary Rheumatoid arthritis documented in this encounter Care Teams Staff Certified Nurse Midwife Relationship Specialty Start Date End Date Charly Saxena [facility] [address] [place] [address] PCP - General Internal Medicine 05/25/13 07/16/17 Cheryl Calderon MD [facility] [address] [place] [address] PCP - General Internal Medicine 07/17/17 documented as of this encounter
--- OUTSIDE RECORDS SUMMARY | 2024-07-28 13:44 | XMS_ITS | Encounter Summary ---
Author Organization [facility] Address [address] [place] [address] Care Team Providers Care Trailer Tank Truck Driver Name Role Phone Charly Saxena Primary Care Provider [phone] Cheryl Calderon MD Primary Care Provider [phone] Encounter Details Date Type Department Care Team (Late st Contact Info) Description 07/29/2014 Orders Only [facility] Rheumatology [address] [place] [address] Abel Fierro MD [address] [place] [address] Social History Tobacco Use Types Packs/Day Years [...] Routine 07/29/2014 11:19 AM EDT Rheumatoid arthritis(714.0) ([facility]) ERYTHROCYTE SEDIMENTATION RATE (ESR) Routine 07/29/2014 11:19 AM EDT Rheumatoid arthritis(714.0) ([facility]) CBC INCLUDES DIFFERENTIAL AND PLATELET COUNT Routine 07/29/2014 11:19 AM EDT Rheumatoid arthritis(714.0) ([facility]) ALANINE AMINOTRANSFERASE (ALT), SERUM Routine 07/29/2014 11:19 AM EDT Rheumatoid arthritis(714.0) ([facility]) ASPARTATE AMINOTRANSFERASE (AST), SERUM Routine 07/29/2014 11:19 AM EDT Rheumatoid arthritis(714.0) ([facility]) CREATININE WITH GLOMERULAR FILTRATION RATE, ESTIMATED (EGFR) Routine 07/29/2014 11:19 AM EDT Rheumatoid arthritis(714.0) ([facility]) documented in this encounter Results * Due to [place] state law, this organization might not be sharing negative HIV tests. * C-REACTIVE PROTEIN (CRP) - INFLAMMATION (07/29/2014 11:19 AM EDT) C reactive protein 0.22 <0.80 mg/dL [facility] Comment: {C-REACTIVE PROTEIN {[id number]) Please be advised that patients taking Carboxypenicillins may exhibit falsely decreased C-Reactive Protein levels due to an analytical interference in this assay. 07/29/2014 11:1 9 AM EDT 07/29/2014 4:29 PM EDT Narrative Resulting Agency Comment [id number] us Abel Fierro MD LABORATORY Final Result [facility] [address] [place] [address] * ERYTHROCYTE SEDIMENTATION RATE (ESR), KUNAL (07/29/2014 11:19 AM EDT) Sedimentation Rate [place] (ESR) 14 < OR = 30 mm/h [facility] Comment:{SED RATE BY MODIFIE D SHAJIREN {[id number]) 07/29/2014 11:1 9 AM EDT 07/29/2014 4:29 PM EDT Narrative Resulting Agency Comment [id number] us Abel Fierro MD LAB SAME DAY RESULT Final Resul t Performing Organization Address [facility] Co de Phone Number [facility] [address] [place] [address] * CREATININE WITH GLOMERULAR FILTRATION RATE, ESTIMATED (EGFR) (07/29/2014 11:19 AM EDT) Creatinine 0.93 0.50 - 1.05 mg/dL [facility] Comment: {CREATININE {[id number]) For patients >49 years of age, the reference limit for Creatinine is approximately 13% higher for people identified as -Polish. GFR 67 > OR = 60 mL/min/1. 73m2 [facility] Comment:{eGFR NON-AFR. AMERI CAN {[id number]) GFR () 78 > OR = 60 mL/min/1. 73m2 [facility] Comment:{eGFR AMERIC AN {[id number]) 07/29/2014 11:1 9 AM EDT 07/29/2014 4:29 [...] needs for GFR calculation. Resulting Agency Comment [id number] us Abel Fierro MD LAB SAME DAY RESULT Final Resul t Performing Organization Address City/[facility]/ZIP Co de Phone Number [facility] [address] [place] [address] * ALANINE AMINOTRANSFERASE (ALT), SERUM (07/29/2014 11:19 AM EDT) ALT (SGPT) 19 6 - 29 U/L [facility] Comment:{ALT {[id number]) 07/29/2014 11:1 9 AM EDT 07/29/2014 4:29 PM EDT Narrative Resulting Agency Comment [id number] us Abel Fierro MD LAB SAME DAY RESULT Final Resul t Performing Organization Address City/[facility] Co de Phone Number [facility] [address] [place] [address] * ASPARTATE AMINOTRANSFERASE (AST), SERUM (07/29/2014 11:19 AM EDT) AST (SGOT) 17 10 - 35 U/L [facility] Comment:{AST {[id number]) 07/29/2014 11:1 9 AM EDT 07/29/2014 4:29 PM EDT Narrative Resulting Agency Comment [id number] us Abel Fierro MD LAB SAME DAY RESULT Final Resul t Performing Organization Address [facility] de Phone Number [facility] [address] [place] [address] * (ABNORMAL) CBC INCLUDES DIFFERENTIAL AND PLATELET COUNT (07/29/2014 11:19 AM EDT) WBC 10.9(H) 3.8 - 10.8 Thousand/ uL [facility] Comment:{WHITE BLOOD CELL CO UNT {[id number]) RBC 5.63(H) 3.80 - 5.10 Million/u L [facility] Comment:{RED BLOOD CELL COUN T {[id number]) Hemoglobin 14.8 11.7 - 15.5 g/dL [facility] Comment:{HEMOGLOBIN {[id number]) Hematocrit 45.7(H) 35.0 - 45.0 % [facility] Comment:{HEMATOCRIT {[id number]) MCV 81.1 80.0 - 100.0 fL [facility] Comment:{MCV {[id number]) MCH 26.2(L) 27.0 - 33.0 pg [facility] Comment:{MCH {[id number]) MCHC 32.3 32.0 - 36.0 g/dL [facility] Comment:{MCHC {[id number]) RDW 15.5(H) 11.0 - 15.0 % [facility] Comment:{RDW {[id number]) PLT 331 140 - 400 Thousand/ uL [facility] Comment:{PLATELET COUNT {[id number]) MPV 7.3(L) 7.5 - 11.5 fL [facility] Comment:{MPV {[id number]) Neutrophils # 5875 1500 - 7800 cells/uL [facility] Comment:{ABSOLUTE NEUTROPHIL S {[id number]) Lymphocytes # 3706 850 - 3900 cells/uL [facility] Comment:{ABSOLUTE LYMPHOCYTE S {[id number]) Monocytes # 981(H) 200 - 950 cells/uL [facility] Comment:{ABSOLUTE MONOCYTES {[id number]) Eosinophils # 294 15 - 500 cells/uL [facility] Comment:{ABSOLUTE EOSINOPHIL S {[id number]) Basophils # 44 0 - 200 cells/uL [facility] Comment:{ABSOLUTE BASOPHILS {[id number]) Neutrophils % 53.9 % [facility] Comment:{NEUTROPHILS {[id number]) Lymphocytes % 34.0 % [facility] Comment:{LYMPHOCYTES {[id number]) Monocytes % 9.0 % [facility] Comment:{MONOCYTES {[id number]) Eosinophils % 2.7 % [facility] Comment:{EOSINOPHILS {[id number]) Basophils % 0.4 % [facility] Comment:{BASOPHILS {[id number]) 07/29/2014 11:1 9 AM EDT 07/29/2014 4:29 PM EDT Narrative Resulting Agency Comment [id number] us Abel Fierro MD LAB SAME DAY RESULT Final Resul t [facility] [address] [place] [address] documented in this encounter Visit Diagnoses Diagnosis Rheumatoid arthritis(714.0) Rheumatoid arthritis documented in this encounter Care Teams Trailer Tank Truck Driver Relationship Specialty Start Date End Date Charly Saxena [facility]0 [place], [place] [id number] PCP - General Internal Medicine 05/25/13 07/16/17 Cheryl Calderon MD [address] [address] PCP - General Internal Medicine 07/17/17 documented as of this encounter
--- OUTSIDE RECORDS SUMMARY | 2024-07-28 13:45 | XMS_ITS | Encounter Summary ---
Author Organization [facility] Address [address] [place] [address] Phone Care Team Providers Care Survey Cad Technician Name Role Phone Cash Fernandes MD Unavailable [phone] Keren Poon [facility] Primary Care Provid er Chavo Jack MD Unavailable Willi Wells MD Unavailable Jose Thakur MD Unavailable Dana Rucker SEATING AND MOBILITY TECHNOLOGIST Unavailable [phone] Jonathan Alvarez MD Unavailable [phone] Anival Borja MD Unavailable Lyndsay Reynoso SEATING AND MOBILITY TECHNOLOGIST Unavailable [phone] Gutierrez Pittman MD Unavailable [phone] Encounter Details Date Type Department Care Team (Late st Contact Info) Description 05/01/2024 Ancillary Orders Virtual Department [address] [place] [address] Argelia Taylor, JULI [address] [place], [place] [id number] Lower abdominal pain (Primary Dx); Diarrhea, unspecified [...] st Contact Info) Description 06/06/2024 Procedure Pass [address] [address] 07/30/2024 3:30 PM EDT Office Visit [facility] [address] [place] [address] [place] [address] Keren Poon, SUSPENSION CORD TIER [address] [facility], 2nd [place] [address] 08/04/2024 2:30 AM EDT [facility] [address] [place] [address] Orlando Mckeon RN [address] [place] [address] 08/11/2024 2:00 AM EDT [facility] [address] [place] [address] Orlando Mckeon RN [address] [place] [address] 08/18/2024 1:30 AM EDT [facility] [address] [place] [phone] Orlando Mckeon RN [address] [place] [address] 08/25/2024 1:00 AM EDT Home Care Visit [facility] [address] [place] [address] Orlando Mckeon RN [address] [place] [address] 09/01/2024 12:30 AM EDT Appointment [facility] [address] [place] [phone] Orlando Mckeon RN [address] [place] [address] 09/18/2024 2:30 PM EDT Office Visit [facility] Infectious Diseases [address] [place] [address] Dana Rucker, SEATING AND MOBILITY TECHNOLOGIST [address] [address] 11/26/2024 3:30 PM EDT Office Visit [facility] [address] [place] [address] [place] [address] Keren Poon, SUSPENSION CORD TIER [address] [address] 12/11/2024 2:00 PM EDT Appointment [facility] [address] [place] [address] Keren Poon, SUSPENSION CORD TIER [address] [address] [email or web address] 01/07/2025 2:30 PM EDT Office Visit [facility] [address] [place] [address] Jose Thakur MD [address] [place] [address] 06/03/2025 2:00 PM EST Office Visit [facility] [address] [place] [address] Keren Poon, ORI 170 [facility], [address] [place] [address] [email or web address] documented as of this encounter Results * [...] documented as of this encounter Care Teams Survey Cad Technician Relationship Specialty Start Date End Date Keren Poon CNP [address] [place] [address], [address] [place] [address] [email or web address] PCP - General Family Medicine 01/31/23 Cash Fernandes MD [address] [place] [address] Gastroenterology 08/23/20 Chavo Jack MD [address] [place] [address] [email or web address] Insurance Assigned Provider 08/03/23 05/04/24 Willi Wells MD [address] [address] Rheumatology 02/04/24 Jose Thakur MD [address] [place] [address] Packing Machine Pilot Can Router Pulmonary Disease 03/17/24 Dana Rucker FNP [address] [address] [email or web address] Nurse Practitioner Infectious Diseases 05/21/24 Jonathan Alvarez MD [address] [place] [address], [address] [place] [address] Urology 05/14/23 Anival Borja MD [address] [place] [address], [address] [place] [address] Neurologist Neurology 01/04/23 Lyndsay Reynoso FNP [address] [place] [address] [place] [address] [email or web address] Nurse Practitioner Pain Medicine 05/27/22 Gutierrez Pittman MD [address] [place] [phone] [employer] [facility] 05/27/24 documented as of this encounter Additional Source Comments The information contained in this document represents components of the legal health record. It is not the complete legal health record.[facility]
--- OUTSIDE RECORDS SUMMARY | 2024-07-28 13:45 | XMS_ITS | Encounter Summary ---
Author Organization [facility] Address [address] [place] [address] Care Team Providers Care Utility Manager Name Role Phone Cheryl Calderon MD Primary Care Provider [phone] Encounter Details Date Type Department Care Team (Late st Contact Info) Description 01/27/2019 Orders Only [facility] Hematology/Oncology 1 [facility] [address] [place] [phone] Liliana Calderon, JULI [address] [place] [address] Social History Tobacco Use Types Packs/Day Years [...] 1:19 AM EDT Narrative Resulting Agency Comment [id number] Liliana Calderon NP LAB SAME DAY RESULT Final Result Performing Organization Address [facility] Co de Phone Number [facility] [address] [place] [address] * (ABNORMAL) FERRITIN (01/27/2019 3:23 PM EDT) Ferritin 687(H) 16 - 288 ng/mL [facility] 01/27/2019 3:23 PM EDT 01/28/2019 1:19 AM EDT Narrative Resulting Agency Comment [id number] Liliana Erazo ANALYSIS OR RESEARCH SAFETY INSPECTOR LABORATORY Final Result Performing Organization Address [facility] Co de Phone Number [facility] [address] [place] [address] * (ABNORMAL) IRON PROFILE (IRON/TIBC), SERUM (01/27/2019 3:23 PM EDT) Iron 14(L) 45 - 160 mcg/dL [facility] Iron binding capacity 223(L) 250 - 450 mcg/dL (calc) [facility] Iron saturation 6(L) 16 - 45 % (calc) [facility] 01/27/2019 3:23 PM EDT 01/28/2019 1:19 AM EDT Narrative Resulting Agency Comment [id number] Liliana Calderon ANALYSIS OR RESEARCH SAFETY INSPECTOR LABORATORY Final Result [facility] [address] [place] [address] documented in this encounter Visit Diagnoses Diagnosis Iron deficiency Iron deficiency anemia, unspecified Leukopenia, unspecified type Rheumatoid arthritis involving multiple sites with positive rheumatoid factor (HCC) documented in this encounter Care Teams Utility Manager Relationship Specialty Start Date End Date Cheryl Calderon MD [facility] Adult Medicine [address] [place] [address] PCP - General Internal Medicine 07/17/17 documented as of this encounter
--- OUTSIDE RECORDS SUMMARY | 2024-07-28 13:45 | XMS_ITS | Encounter Summary ---
Author Organization [facility] Address [address] [place] [address] Care Team Providers Care Field Operations Coordinator Name Role Phone Cheryl Calderon MD Primary Care Provider [phone] Encounter Details Date Type Department Care Team (Late st Contact Info) Description 12/23/2018 Orders Only [facility] Hematology/Oncology [address] [facility] [address] [place] [phone] Liliana Calderon, JULI [address] [place] [address] Social History Tobacco Use Types Packs/Day Years [...] a test for HCV RNA (test code 67210) is suggested. For additional information please refer to http://education.Olac[employer]/faq/RDA39p9 (This link is being provided for informational/ educational purposes only.) 12/23/2018 11:3 2 AM EDT 12/23/2018 11:23 PM EDT Narrative Resulting Agency Comment [id number] Liliana Calderon NP LABORATORY Final Result [facility] [address] [place] [address] * HEPATITIS B CORE ANTIBODY, TOTAL, SERUM (12/23/2018 11:32 AM EDT) Hepatitis B virus core Ab NON-REACTI VE NON-REACT MANOLO [facility] 12/23/2018 11:3 2 AM EDT 12/23/2018 11:23 PM EDT Narrative Resulting Agency Comment [id number] Liliana Nehemiasunder ELECTROPLATER AUTOMATIC LABORATORY Final Result Performing Organization Address [facility] Co de Phone Number [facility] [address] [place] [address] * HEPATITIS B SURFACE ANTIGEN (12/23/2018 11:32 AM EDT) Hepatitis B virus surface Ag NON-REACTI VE NON-REACT MANOLO [facility] 12/23/2018 11:3 2 AM EDT 12/23/2018 11:23 PM EDT Narrative Resulting Agency Comment [id number] Liliana Nehemiasunder ELECTROPLATER AUTOMAT[employer] LABORATORY Final Result Performing Organization Address [facility] de Phone Number [facility] [address] [place] [address] * (ABNORMAL) HEPATIC FUNCTION PANEL (ALT,AST,ALK PH,BILI'S,TP,ALB) [...] 11:23 PM EDT Narrative Resulting Agency Comment [id number] Liliana Nehemiasunder ELECTROPLATER AUTOM[employer] LABORATORY Final Result Performing Organization Address [facility] Co de Phone Number [facility] [address] [place] [address] * CBC INCLUDES DIFFERENTIAL AND PLATELET COUNT [...] 11:23 PM EDT Narrative Resulting Agency Comment [id number] Liliana Calderon ELECTROPLATER AUTOMATIC LAB SAME DAY RESULT Final Result Performing Organization Address City/State/[facility] Co de Phone Number [facility] [address] [place] [address] documented in this encounter Visit Diagnoses Diagnosis Rheumatoid arthritis involving multiple sites with positive rheumatoid factor (HCC) documented in this encounter Care Teams Field Operations Coordinator Relationship Specialty Start Date End Date Cheryl Calderon MD [facility] Adult Medicine [address] [place] [id number] PCP - General Internal Medicine 07/17/17 documented as of this encounter
--- OUTSIDE RECORDS SUMMARY | 2024-07-28 13:45 | XMS_ITS | Encounter Summary ---
Author Organization [facility] Address [address] [place] [address] Phone Care Team Providers Care Fish Hatchery Inspector Name Role Phone Cash Fernandes MD Unavailable [phone] Keren Poon [facility] Primary Care Provid er Chavo Jack MD Unavailable Willi Wells MD Unavailable Jose Thakur MD Unavailable [phone] Dana Rucker WORKS MANAGER Unavailable Jonathan Alvarez MD Unavailable [phone] Anival Borja MD Unavailable Lyndsay Reynoso WORKS MANAGER Unavailable [phone] Gutierrez Pittman MD Unavailable [phone] Encounter Details Date Type Department Care Team (Late st Contact Info) Description 04/10/2024 Procedure Pass [facility], Ct Scan - [address] [address] Social History Tobacco Use Types Packs/Day Years [...] st Contact Info) Description 06/06/2024 Procedure Pass [address] [address] 07/30/2024 3:30 PM EDT Office Visit [facility] [address] [place] [address] [place] [address] Keren Poon, AQUACULTURIST 170 [facility], 2nd [place] [address] [email or web address] 08/04/2024 2:30 AM EDT [facility] [address] [place] [address] Orlando Mckeon RN [address] [place] [address] 08/11/2024 2:00 AM EDT [facility] [address] [place] [address] Orlando Mckeon RN [address] [place] [address] 08/18/2024 1:30 AM EDT [facility] [address] [place] [address] Orlando Mckeon RN [address] [place] [address] 08/25/2024 1:00 AM EDT Home Care Visit [facility] [place] [facility] [address] [place] [address] Orlando Mckeon RN [address] [place] [address] 09/01/2024 12:30 AM EDT Appointment [facility] [address] [place], [place] [phone] Orlando Mckeon RN [address] [place] [address] 09/18/2024 2:30 PM EDT Office Visit [facility] Infectious Diseases [address] [place] [address] Dana Rucker, WORKS MANAGER 15 [facility], [address] [place] [address] 11/26/2024 3:30 PM EDT Office Visit [facility] Medical [address] [place] [address] Keren Poon, AQUACULTURIST [address] [address] 12/11/2024 2:00 PM EDT Appointment [facility] [address] [place] [address] Keren Poon, ORI [address] [address] 01/07/2025 2:30 PM EDT Office Visit [facility] Pulmonary, Allergy and Critical Care Medicine [address] [place] [address] Jose Thakur MD [address] [place] [address] [email or web address] 06/03/2025 2:00 PM EST Office Visit [facility] [address] [place] [address] Dr [place] [address] Keren Poon CNP 170 [facility], 2nd [place] [address] [email or web address] documented as of this encounter Visit Diagnoses [...] documented as of this encounter Care Teams Fish Hatchery Inspector Relationship Specialty Start Date End Date Keren Poon CNP [address] [place] [address], 2nd [place] [address] [email or web address] PCP - General Family Medicine 01/31/23 Cash Fernandes MD 10 [place] [address] [email or web address] Gastroenterology 08/23/20 Chavo Jack MD 40 [place] [address] [email or web address] Insurance Assigned Provider 08/03/23 05/04/24 Willi Wells MD [address] [place] [address] Drive [facility] 304_[place] [address] Rheumatology 02/04/24 Jose Thakur MD [address] [place] [address] [email or web address] Coffee Blender Pulmonary Disease 03/17/24 Dana Rucker FNP 15 [facility], 2nd [place] [address] [email or web address] Nurse Practitioner Infectious Diseases 05/21/24 Jonathan Alvarez MD [address] [place] [address], [address] [place] [address] [email or web address] Urology 05/14/23 Anival Borja MD [address] [place] [address], [address] [place] [address] [email or web address] Neurologist Neurology 01/04/23 Lyndsay Reynoso FNP [address] [place] [address] [address] [place] [address] [email or web address] Nurse Practitioner Pain Medicine 05/27/22 Gutierrez Pittman MD 40 [place] [address] Raw Stock Machine Loader Cardiology 05/27/24 documented as of this encounter Additional Source Comments The information contained in this document represents components of the legal health record. It is not the complete legal health record.[facility]
--- OUTSIDE RECORDS SUMMARY | 2024-07-28 13:45 | XMS_ITS | Encounter Summary ---
Author Organization [facility] Address [address] [place] [address] Phone Care Team Providers Care Perianesthesia Rn Name Role Phone JessicaMattie oliveirasheryl Mccrackengh [facility] Primary Care Provider Cash Fernandes MD Unavailable [phone] Seven Menchaca MD Unavailable [phone] Chavo Jack MD Primary Care Provider [phone] Keren Poon [facility] Primary Care Provid er Chavo Jack MD Unavailable Willi Wells MD Unavailable Jose Thakur MD Unavailable Dana Rucker ASSEMBLY STOCK SUPERVISOR Unavailable Jonathan Alvarez MD Unavailable [phone] Anival Borja MD Unavailable [phone] Lyndsay Reynoso ASSEMBLY STOCK SUPERVISOR Unavailable Gutierrez Pittman MD Unavailable [phone] Encounter Details Date Type Department Care Team (Late st Contact Info) Description 02/10/2021 Procedure Pass [facility], Ct Scan - [facility] [address] [place] [address] Social History Tobacco Use Types Packs/Day Years [...] high school, GED, job training, learning the Rw[place] language, technical skills, or developing parenting skills)? [...] st Contact Info) Description 06/06/2024 Procedure Pass [facility], [facility]- [address] [address] 07/30/2024 3:30 PM EDT Office Visit [facility] Medical [facility] 170 [facility] [place] [address] Keren Poon, MASONRY INSTALLER 170 [facility], 2nd [place] [address] 08/04/2024 2:30 AM EDT Home Care Visit [facility] [address] [place] [phone] Orlando Mckeon RN [address] [place] [address] 08/11/2024 2:00 AM EDT Home Care Visit [facility] [address] [place] [phone] Orlando Mckeon RN [address] [place] [address] 08/18/2024 1:30 AM EDT Home Care Visit [facility] [address] [place] [address] Orlando Mckeon RN [address] [place] [address] 08/25/2024 1:00 AM EDT Home Care Visit [facility] [address] [place] [phone] Orlando Mckeon RN [address] [place] [address] 09/01/2024 12:30 AM EDT Appointment [facility] [address] [place] [phone] Orlando Mckeon RN 168 [place] [address] 09/18/2024 2:30 PM EDT Office Visit [facility] Infectious Diseases [address] [place] [address] Dana Rucker FNP 15 [facility], [address] [place] [address] 11/26/2024 3:30 PM EDT Office Visit [address] [place] [address] Keren Poon, ORI [address] [place] [address] 12/11/2024 2:00 PM EDT Appointment [facility], [facility] [address] [place] [address] Keren Poon, ORI [address] [address] 01/07/2025 2:30 PM EDT Office Visit [facility], Allergy and Critical Care Medicine [address] [place] [address] Jose Thakur MD 30 [place] [address] 06/03/2025 2:00 PM EST Office Visit [address] [place] [address] Keren Poon, ORI [address] [place] [address] documented as of this encounter Visit Diagnoses [...] documented as of this encounter Care Teams Perianesthesia Rn Relationship Specialty Start Date End Date Ita Pineda CNP 40 [place] [address] [email or web address] PCP - General Internal Medicine 08/19/20 09/17/22 Chavo Jack MD 40 [place] [address] [email or web address] PCP - General Internal Medicine 09/18/22 01/30/23 Keren Poon CNP [address] [place] [address], 2nd [place] [address] [email or web address] PCP - General Family Medicine 01/31/23 Cash Fernandes MD 10 [place] [address] [email or web address] Gastroenterology 08/23/20 Seven Menchaca MD [address] [place] [address] [email or web address] Insurance Assigned Provider 08/04/22 08/03/23 Chavo Jack MD 40 [place] [address] [email or web address] Insurance Assigned Provider 08/03/23 05/04/24 Willi Wells MD [address] [place], [place] [address] [address] Rheumatology 02/04/24 Jose Thakur MD [address] [place] [address] [email or web address] Precision Lens Generator Pulmonary Disease 03/17/24 Dana Rucker FNP 15 [facility], 2nd [place] [address] [email or web address] Nurse Practitioner Infectious Diseases 05/21/24 Jonathan Alvarez MD [facility], [address] [address] [email or web address] Urology 05/14/23 Anival Borja MD [address] [place] [address], [address] [place] [address] [email or web address] Neurologist Neurology 01/04/23 Lyndsay Reynoso FNP [address] [place] [address] [email or web address] Nurse Practitioner Pain Medicine 05/27/22 Gutierrez Pittman MD 40 [place] [address] Nut Roaster Helper Cardiology 05/27/24 documented as of this encounter Additional Source Comments The information contained in this document represents components of the legal health record. It is not the complete legal health record.[facility]
--- OUTSIDE RECORDS SUMMARY | 2024-07-28 13:45 | XMS_ITS | Encounter Summary ---
Author Organization [facility] Address [address] [facility] [place] [address] Phone Care Team Providers Care Hogshead Filler Name Role Phone JessicaMattie oliveirasheryl Mccrackengh [facility] Primary Care Provider Cash Fernandes MD Unavailable [phone] Seven Menchaca MD Unavailable Chavo Jack MD Primary Care Provider Keren Poon [facility] Primary Care Provid er Chavo Jack MD Unavailable Willi Wells MD Unavailable Jose Thakur MD Unavailable [phone] Dana Rucker ANIMAL LABORATORY TECHNICIAN Unavailable Jonathan Alvarez MD Unavailable [phone] Anival Borja MD Unavailable [phone] Lyndsay Reynoso ANIMAL LABORATORY TECHNICIAN Unavailable Gutierrez Pittman MD Unavailable + [phone] Encounter Details Date Type Department Care Team (Late st Contact Info) Description 02/21/2022 Procedure Pass [facility] Endoscopy Admitting Dept Virtual Department 30 [place] [address] Social History Tobacco Use Types Packs/Day Years [...] high school, GED, job training, learning the Maori language, technical skills, or developing parenting skills)? [...] st Contact Info) Description 06/06/2024 Procedure Pass [facility] [place], [facility] 30 [place] [address] 07/30/2024 3:30 PM EDT Office Visit [facility] [address] [place] [address] [place] [address] Keren Poon, ENTRY LEVEL MARKETING REPRESENTATIVE 170 [facility], 2nd [place] [address] [email or web address] 08/04/2024 2:30 AM EDT Home Care Visit [facility] [address] [place] [phone] Orlando Mckeon RN [address] [place] [address] [email or web address] 08/11/2024 2:00 AM EDT Home Care Visit [facility] [address] [place] [phone] Orlando Mckeon RN [address] [place] [address] [email or web address] 08/18/2024 1:30 AM EDT Home Care Visit [facility] [address] [place] [phone] Orlando Mckeon RN [address] [place] [address] [email or web address] 08/25/2024 1:00 AM EDT [facility] [address] [place] [phone] Orlando Mckeon RN [address] [place] [address] [email or web address] 09/01/2024 12:30 AM EDT Appointment [facility] [address] [place] [phone] Orlando Mckeon RN [address] [place] [address] 09/18/2024 2:30 PM EDT Office Visit [facility] Infectious Diseases 22 [place] [address] Dana Rucker, DIVYA 15 [facility], [address] [place] [address] 11/26/2024 3:30 PM EDT Office Visit [address] [place] [address] Keren Poon, ORI [address] [place] [address] 12/11/2024 2:00 PM EDT Appointment [facility] 30 [place] [address] Keren Poon, ORI [address] [address] 01/07/2025 2:30 PM EDT Office Visit [facility], Allergy and Critical Care Medicine [address] [place] [address] Jose Thakur MD 30 [place] [address] 06/03/2025 2:00 PM EST Office Visit [address] [place] [address] Keren Poon, ORI [address] [place] [address] documented as of this encounter Visit Diagnoses [...] documented as of this encounter Care Teams Hogshead Filler Relationship Specialty Start Date End Date Ita Pineda CNP 40 [place] [address] [email or web address] PCP - General Internal Medicine 08/19/20 09/17/22 Chavo Jack MD 40 [place] [address] [email or web address] PCP - General Internal Medicine 09/18/22 01/30/23 Keren Poon CNP [address] [place] [address], 2nd [place] [address] PCP - General Family Medicine 01/31/23 Cash Fernandes MD 10 [place] [address] [email or web address] Gastroenterology 08/23/20 Seven Menchaca MD 40 [place] [address] [email or web address] Insurance Assigned Provider 08/04/22 08/03/23 Chavo Jack MD 40 [place] [address] [email or web address] Insurance Assigned Provider 08/03/23 05/04/24 Willi Wells MD [address] [place], [place] [address]R[place] [address] Rheumatology 02/04/24 Jose Thakur MD [address] [place] [address] [email or web address] Doll Repairer Pulmonary Disease 03/17/24 Dana Rucker FNP 15 [facility], 2nd [place] [address] [email or web address] Nurse Practitioner Infectious Diseases 05/21/24 Jonathan Alvarez MD [address] [place] [address], [address] [place] [address] [email or web address] Urology 05/14/23 Anival Borja MD [address] [place] [address], [address] [place] [address] Neurologist Neurology 01/04/23 Lyndsay Reynoso FNP 10 [facility] [address] [place] [address] [email or web address] Nurse Practitioner Pain Medicine 05/27/22 Gutierrez Pittman MD [address] [place] [phone] Chief Cloth Finishing Range Operator Cardiology 05/27/24 documented as of this encounter Additional Source Comments The information contained in this document represents components of the legal health record. It is not the complete legal health record.[facility]
--- OUTSIDE RECORDS SUMMARY | 2024-07-28 13:45 | XMS_ITS | Encounter Summary ---
Author Organization [facility] Address [address] [place] [address] Phone Care Team Providers Care [employer] Developer Name Role Phone Cash Fernandes MD Unavailable [phone] Seven Menchaca MD Unavailable [phone] Chavo Jack MD Primary Care Provider [phone] Keren Poon [facility] Primary Care Provid er Chavo Jack MD Unavailable Willi Wells MD Unavailable Jose Thakur MD Unavailable [phone] Dana Rucker CUTTER APPRENTICE HAND Unavailable [phone] Jonathan Alvarez MD Unavailable [phone] Anival Borja MD Unavailable Lyndsay Reynoso CUTTER APPRENTICE HAND Unavailable Gutierrez Pittman MD Unavailable [phone] Encounter Details Date Type Department Care Team (Late st Contact Info) Description 10/11/2022 Transcribe Orders [facility] [address] [facility] [place] [address] Anival Borja MD 69 [facility], [address] [place] [address] Social History Tobacco Use Types Packs/Day Years [...] st Contact Info) Description 06/06/2024 Procedure Pass [address] [address] 07/30/2024 3:30 PM EDT Office Visit [facility] [address] [place] [address] Keren Poon, ORI 170 [facility], 2nd [place] [address] 08/04/2024 2:30 AM EDT Home Care Visit [facility] [address] [place] [phone] Orlando Mckeon RN [address] [place] [address] 08/11/2024 2:00 AM EDT [facility] [address] [place] [address] Orlando Mckeon RN [address] [place] [address] 08/18/2024 1:30 AM EDT Home Care Visit [facility] [address] [place] [phone] Orlando Mckeon RN [address] [place] [address] 08/25/2024 1:00 AM EDT [facility] [address] [place] [phone] Orlando Mckeon RN 168 [place] [address] 09/01/2024 12:30 AM EDT Appointment [facility] [address] [place] [phone] Orlando Mckeon RN 168 [place] [address] 09/18/2024 2:30 PM EDT Office Visit [facility] Infectious Diseases 22 [place] [address] Dana Rucker FNP [address] [address] [email or web address] 11/26/2024 3:30 PM EDT Office Visit [address] [place] [address] Keren Poon, ORI [address] [address] 12/11/2024 2:00 PM EDT Appointment [address] [address] Keren Poon, DEVELOPMENT CONSULTANT [address] [place] [address] 01/07/2025 2:30 PM EDT Office Visit [facility] [address] [place] [address] Jose Thakur MD 30 [place] [address] 06/03/2025 2:00 PM EST Office Visit [address] [place] [address] Keren Poon CNP [address] [place] [address], 2nd [place] [address] [email or web address] documented as of this encounter Visit Diagnoses [...] documented as of this encounter Care Teams [employer] Developer Relationship Specialty Start Date End Date Chavo Jack MD [address] [place] [address] [email or web address] PCP - General Internal Medicine 09/18/22 01/30/23 Keren Poon CNP [address] [place] [address], 2nd [facility] [place] [address] [email or web address] PCP - General Family Medicine 01/31/23 Cash Fernandes MD 10 [place] [address] [email or web address] Gastroenterology 08/23/20 Seven Menchaca MD 40 [place] [address] [email or web address] Insurance Assigned Provider 08/04/22 08/03/23 Chavo Jack MD 40 [place] [address] [email or web address] Insurance Assigned Provider 08/03/23 05/04/24 Willi [place] MD 10 [address] [address] Rheumatology 02/04/24 Jose Thakur MD 30 [place] [address] [email or web address] Maintenance Advisor Pulmonary Disease 03/17/24 Dana Rucker FNP 15 [facility], 2nd [place] [address] [email or web address] Nurse Practitioner Infectious Diseases 05/21/24 Jonathan Alvarez MD [address] [place] [address], [address] [place] [address] [email or web address] Urology 05/14/23 Anival Borja MD [address] [place] [address], [address] [place] [address] [email or web address] Neurologist Neurology 01/04/23 Lyndsay Reynoso FNP 10 [facility] [address] [place] [address] [email or web address] Nurse Practitioner Pain Medicine 05/27/22 Gutierrez Pittman MD [address] [place] [phone] Sewing Machine Operator Cardiology 05/27/24 documented as of this encounter Additional Source Comments The information contained in this document represents components of the legal health record. It is not the complete legal health record.[facility]
--- OUTSIDE RECORDS SUMMARY | 2024-07-28 13:45 | XMS_ITS | Encounter Summary ---
Author Organization [facility] Address 5 [place] [address] Care Team Providers Care Heel Cutter Name Role Phone Cheryl Calderon MD Primary Care Provider [phone] Reason for Visit * Reason Comments Appointment Encounter Details Date Type Department Care Team ([facility] st Contact Info) Description 01/12/2019 Telephone [facility] Hematology/Oncology 1 [facility] [address] [place] [phone] Ita Anne RN [address] [place] [address] Appointment Social History Tobacco Use Types Packs/Day [...] Phone 01/19/19 3:10 PM Lyndsay Lopez MD [facility]. Ophthalmology [phone] 01/26/19 9:30 AM EAP CHEMO TX HEM ONC [facility] Hematology/Oncology [phone] 01/30/19 2:40 PM Liliana Calderon NP [facility] Hematology/Oncology [phone] Patient's is aware of the appointment. * Telephone Encounter - Liliana Calderon NP - 01/14/2019 5:28 PM EDT To schedule a follow-up visit for this patient within the week of Rituxan infusion. Thanks! * Telephone Encounter - Apple Bridges - 01/12/2019 4:44 PM EDT Liliana is not in the office on 01/26/19, she is in [place]. * Telephone Encounter - Ita Anne - [...] on filedocumented in this encounter Care Teams Heel Cutter Relationship Specialty Start Date End Date Cheryl Calderon MD [facility] Medicine [address] [place] [address] PCP - General Internal Medicine 07/17/17 documented as of this encounter
--- OUTSIDE RECORDS SUMMARY | 2024-07-28 13:45 | XMS_ITS | Encounter Summary ---
Author Organization [facility] Address [address] [place] [address] Phone Care Team Providers Care Scheduling Manager Name Role Phone JessicaMattie oliveirasheryl Mccrackengh [facility] Primary Care Provider Cash Fernandes MD Unavailable [phone] Seven Menchaca MD Unavailable [phone] Chavo Jack MD Primary Care Provider Keren Poon [facility] Primary Care Provid er Chavo Jack MD Unavailable Willi Wells MD Unavailable Jose Thakur MD Unavailable [phone] Dana Rucker CONCRETE BUSTER OPERATOR Unavailable Jonathan Alvarez MD Unavailable [phone] Anival Borja MD Unavailable [phone] Lyndsay Reynoso CONCRETE BUSTER OPERATOR Unavailable Gutierrez Pittman MD Unavailable [phone] Encounter Details Date Type Department Care Team (Late st Contact Info) Description 02/10/2021 Procedure Pass [facility], [facility] 30 [place] [address] Social History Tobacco Use Types Packs/Day Years [...] high school, GED, job training, learning the Samoan language, technical skills, or developing parenting skills)? [...] st Contact Info) Description 06/06/2024 Procedure Pass [facility], [facility]- [address] [address] 07/30/2024 3:30 PM EDT Office Visit [facility] 170 [facility] [address] Keren Poon, TMD TEACHER 170 [facility], 2nd [place] [address] 08/04/2024 2:30 AM EDT Home Care Visit [facility] [address] [place] [phone] Orlando Mckeon RN [address] [place] [address] 08/11/2024 2:00 AM EDT Home Care Visit [facility] [address] [place] [phone] Orlando Mckeon RN [address] [place] [address] 08/18/2024 1:30 AM EDT Home Care Visit [facility] [address] [place] [phone] Orlando Mcekon RN [address] [place] [address] 08/25/2024 1:00 AM EDT Home Care Visit [facility] [address] [place] [phone] Orlando Mckeon RN [address] [place] [address] 09/01/2024 12:30 AM EDT Appointment [facility] [address] [place] [phone] Orlando Mckeon RN 168 [place] [address] 09/18/2024 2:30 PM EDT Office Visit [facility] Infectious Diseases 22 [place] [address] Dana Rucker FNP 15 [facility], [address] [place] [address] 11/26/2024 3:30 PM EDT Office Visit [address] [place] [address] Keren Poon, ORI [address] [place] [address] 12/11/2024 2:00 PM EDT Appointment [facility], [facility] 30 [place] [address] Keren Poon, ORI [address] [address] 01/07/2025 2:30 PM EDT Office Visit [facility] [address] [place] [address] Jose Thakur MD 30 [place] [address] 06/03/2025 2:00 PM EST Office Visit [address] [place] [address] Keren Poon, ORI [address] [address] documented as of this encounter Visit Diagnoses [...] documented as of this encounter Care Teams Scheduling Manager Relationship Specialty Start Date End Date Ita Pineda CNP 40 [place] [address] [email or web address] PCP - General Internal Medicine 08/19/20 09/17/22 Chavo Jack MD 40 [place] [address] [email or web address] PCP - General Internal Medicine 09/18/22 01/30/23 Keren Poon CNP [address] [place] [address], 2nd [place] [address] [email or web address] PCP - General Family Medicine 01/31/23 Cash Fernandes MD 10 [place] [address] [email or web address] Gastroenterology 08/23/20 Seven Menchaca MD 40 [place] [address] [email or web address] Insurance Assigned Provider 08/04/22 08/03/23 Chavo Jack MD 40 [place] [address] [email or web address] Insurance Assigned Provider 08/03/23 05/04/24 Willi [place] MD [address] [place], [place] [address] [address] Rheumatology 02/04/24 Jose Thakur MD [address] [place] [address] [email or web address] Chocolate Molder Pulmonary Disease 03/17/24 Dana Rucker FNP 15 [facility], 2nd [place] [address] [email or web address] Nurse Practitioner Infectious Diseases 05/21/24 Jonathan Alvarez MD [address] [place] [address], [address] [address] [email or web address] Urology 05/14/23 Anival Borja MD [address] [place] [address], [address] [place] [address] [email or web address] Neurologist Neurology 01/04/23 Lyndsay Reynoso FNP 10 [facility] [address] [place] [address] [email or web address] Nurse Practitioner Pain Medicine 05/27/22 Gutierrez Pittman MD 40 [place] [address] Consumer Credit Counselor Cardiology 05/27/24 documented as of this encounter Additional Source Comments The information contained in this document represents components of the legal health record. It is not the complete legal health record.[facility]
--- OUTSIDE RECORDS SUMMARY | 2024-07-28 13:45 | XMS_ITS | Encounter Summary ---
Author Organization [facility] Address [address] [place] [address] Phone Care Team Providers Care Health Researcher Name Role Phone Cash Fernandes MD Unavailable [phone] Seven Menchaca MD Unavailable [phone] Chavo Jack MD Primary Care Provider [phone] Keren Poon [facility] Primary Care Provid er Chavo Jack MD Unavailable Willi Wells MD Unavailable Jose Thakur MD Unavailable Dana Rucker MANAGER ELECTRONIC Unavailable Jonathan Alvarez MD Unavailable [phone] Anival Borja MD Unavailable Lyndsay Reynoso MANAGER ELECTRONIC Unavailable [phone] Gutierrez Pittman MD Unavailable [phone] Reason for Referral * MRI/CAT Scan - Closed Specialty Diagnoses / Procedures Referred By Cayden montoya Referred To Contact Radiology Diagnoses Memory loss Procedures MRI Brain Anival Borja MD [address] [place] [address], [address] [place] [address] Email: Referral ID Status Reason Start Date Expiration Date Visits Re quested Visits Authorized [id number] Closed 10/04/2022 1 1 Encounter Details Date Type Department Care Team (Latest Contact Info) Description 10/04/2022 Transcribe Orders Virtual Department 30 [place] [address] Anival Borja MD [address] [place] [address], [address] [place], [place] [id number] [email or web address] Memory loss (Primary Dx) Social History Tobacco [...] st Contact Info) Description 06/06/2024 Procedure Pass [facility], [address] [address] 07/30/2024 3:30 PM EDT Office Visit [facility] [address] [place] [address] [place] [address] Keren Poon, PAPER AND PULP MILL WORKER 170 [facility], 2nd [place] [address] 08/04/2024 2:30 AM EDT [facility] [address] [place] [address] Orlando Mckeon RN 168 [place] [address] 08/11/2024 2:00 AM EDT [facility] [address] [place] [address] Orlando Mckeon RN 168 [place] [address] 08/18/2024 1:30 AM EDT Home Care Visit [facility] [address] [place] [phone] Orlando Mckeon RN 168 [place] [address] 08/25/2024 1:00 AM EDT Home Care Visit [facility] [address] [place] [phone] Orlando Mckeon RN 168 [place] [address] 09/01/2024 12:30 AM EDT [facility]ointment [facility] [address] [place] [phone] Orlando Mckeon RN 168 [place] [address] 09/18/2024 2:30 PM EDT Office Visit [facility] Infectious Diseases 22 [place] [address] Dana Rucker, DIVYA [address] [address] 11/26/2024 3:30 PM EDT Office Visit [facility] [address] [place] [address] [place] [address] Keren Poon, ORI [address] [address] 12/11/2024 2:00 PM EDT Appointment [facility] 30 [place] [address] Keren Poon, ORI [address] [address] [email or web address] 01/07/2025 2:30 PM EDT Office Visit [facility] [address] [place] [address] Jose Thakur MD 30 [place] [address] 06/03/2025 2:00 PM EST Office Visit [facility] [address] [place] [address] Keren Poon, [facility] 170 [facility], 2nd [place] [address] [email or web address] documented as of this encounter Results * [...] documented as of this encounter Care Teams Health Researcher Relationship Specialty Start Date End Date Chavo Jack MD [address] [place] [address] [email or web address] PCP - General Internal Medicine 09/18/22 01/30/23 Keren Poon CNP [address] [place] [address], 2nd [place] [address] PCP - General Family Medicine 01/31/23 Cash Fernandes MD 10 [place] [address] [email or web address] Gastroenterology 08/23/20 Seven Menchaca MD 40 [place] [address] [email or web address] Insurance Assigned Provider 08/04/22 08/03/23 Chavo Jack MD 40 [place] [address] [email or web address] Insurance Assigned Provider 08/03/23 05/04/24 Willi Wells MD 10 [address] [place] [address] Rheumatology 02/04/24 Jose Thakur MD [address] [place] [address] [email or web address] Roll On Man Pulmonary Disease 03/17/24 Dana Rucker FNP 15 [facility], 2nd [place] [address] [email or web address] Nurse Practitioner Infectious Diseases 05/21/24 Jonathan Alvarez MD [address] [place] [address], [address] [place] [address] [email or web address] Urology 05/14/23 Anival Borja MD [address] [place] [address], [address] [place] [address] [email or web address] Neurologist Neurology 01/04/23 Lyndsay Reynoso FNP 10 [facility] [address] [place] [address] [email or web address] Nurse Practitioner Pain Medicine 05/27/22 Gutierrez Pittman MD [address] [place] [phone] Log Brander Cardiology 05/27/24 documented as of this encounter Additional Source Comments The information contained in this document represents components of the legal health record. It is not the complete legal health record.[facility]
--- OUTSIDE RECORDS SUMMARY | 2024-07-28 13:45 | XMS_ITS | Encounter Summary ---
Author Organization [facility] Address [address] [place] [address] Care Team Providers Care Makeup Artist Name Role Phone Charly Saxena Primary Care Provider [phone] Cheryl Calderon MD Primary Care Provider [phone] Encounter Details Date Type Department Care Team (Late st Contact Info) Description 10/15/2013 Orders Only [facility] Rheumatology [address] [place] [address] Abel Fierro MD 5 [place] [address] Social History Tobacco Use Types Packs/Day Years [...] arthritis documented in this encounter Care Teams Makeup Artist Relationship Specialty Start Date End Date Charly Saxena [facility] [address] [place] [address] PCP - General Internal Medicine 05/25/13 07/16/17 Cheryl Calderon MD [facility] Adult Medicine [address] [place] [address] PCP - General Internal Medicine 07/17/17 documented as of this encounter
--- OUTSIDE RECORDS SUMMARY | 2024-07-28 13:45 | XMS_ITS | Encounter Summary ---
Author Organization [facility] Address [address] [place] [address] Phone Care Team Providers Care Sprinkler Fitter Apprentice Name Role Phone Patrick Sanchez MD Unavailable [phone] Keren Mabry MD Unavailable Louisa Hogan MD Unavailable Charly Saxena DO Unavailable [phone] Abhinav Muhammad MD Unavailable [phone] Cheryl Giraldo NP Unavailable Wilfrido Steel MD Unavailable [phone] Sharon MartinC Unavailable Ita Pineda [facility] Primary Care Provider Cash Fernandes MD Unavailable [phone] Seven Menchaca MD Unavailable Chavo Jack MD Primary Care Provider Keren Poon [facility] Primary Care Provid er Chavo Jack MD Unavailable Willi Wells MD Unavailable Jose Thakur MD Unavailable Dana Rucker SUPERVISOR SEWER SYSTEM Unavailable Jonathan Alvarez MD Unavailable [phone] Anival Borja MD Unavailable Lyndsay Reynoso SUPERVISOR SEWER SYSTEM Unavailable [phone] Gutierrez Pittman MD Unavailable [phone] Encounter Details Date Type Department Care Team (Late st Contact Info) Description 08/19/2020 Procedure Pass [facility] Endoscopy Admitting Dept Virtual Department [address] [place] [address] Social History Tobacco Use Types Packs/Day Years [...] Contact Info) Description 06/06/2024 Procedure Pass [facility] 30 [place] [address] 07/30/2024 3:30 PM EDT Office Visit [facility] [address] [place] [address] [place] [address] Keren Poon, HEALTH PROMOTION EDUCATOR 170 [facility], [address]nd [place] [address] 08/04/2024 2:30 AM EDT Home Care [facility] [address] [place] [phone] Orlando Mckeon, RN 168 [place] [address] 08/11/2024 2:00 AM EDT Home Care Visit [facility] [address] [place] [phone] Orlando Mckeon RN 168 [place] [address] 08/18/2024 1:30 AM EDT Home Care [facility] [address] [place] [phone] Orlando Mckeon RN 168 [place] [address] 08/25/2024 1:00 AM EDT Home Care [facility] [address] [place] [phone] Orlando Mckeon RN 168 [place] [address] 09/01/2024 12:30 AM EDT Appointment [facility] [address] [place] [phone] Orlando Mckeon RN 168 [place] [address] 09/18/2024 2:30 PM EDT Office Visit [facility] Infectious Diseases [address] [place] [address] Dana Rucker, DIVYA 15 [facility], [address] [place] [address] 11/26/2024 3:30 PM EDT Office Visit [facility] [address] [place] [address] [place] [address] Keren Poon, HEALTH PROMOTION EDUCATOR [address] [place] [address] [email or web address] 12/11/2024 2:00 PM EDT Appointment [facility] 30 [place] [address] Keren Poon, ORI 170 [facility], 2nd [place] [address] [email or web address] 01/07/2025 2:30 PM EDT Office Visit [facility] [address] [place] [address] Jose Thakur MD [address] [place] [address] 06/03/2025 2:00 PM EST Office Visit [facility] [address] [place] [address] [place] [address] Keren Poon, HEALTH PROMOTION EDUCATOR 170 [facility], 2nd [place] [address] documented as of this encounter Visit Diagnoses [...] documented as of this encounter Care Teams Sprinkler Fitter Apprentice Relationship Specialty Start Date End Date Ita Pineda CNP 40 [place] [address] [email or web address] PCP - General Internal Medicine 08/19/20 09/17/22 Chavo Jack MD 40 [place] [address] PCP - General Internal Medicine 09/18/22 01/30/23 Keren Poon CNP [address] [place] [address], 2nd [place] [address] PCP - General Family Medicine 01/31/23 Patrick Sanchez MD [address] [place] [address] Department [place] [address] [email or web address] Historical LMR Provider 09/10/14 Keren Mabry MD [address] [place] [address] Historical LMR Provider 07/10/18 Louisa Hogan MD [address] [place] [address] [email or web address] Historical LMR Provider 07/10/1807/29 Charly Saxena DO [address] [place] [address] Historical LMR Provider 07/10/18 Abhinav Muhammad MD [address] [place] [address] 104 [place] [address] [email or web address] Historical LMR Provider 07/10/18 08/22/20 Cheryl Giraldo NP [address] [place] [address] Historical LMR Provider 07/10/18 Wilfrido Steel MD [address] [place] [address]. [address] [place] [address] Historical LMR Provider 07/10/18 Sharon Martin PA-C [address] [place] [address] 104 [place] [address] [email or web address] Historical LMR Provider 07/10/18 08/22/20 Cash Fernandes MD [address] [place] [address] Gastroenterology 08/23/20 Seven Menchaca MD [address] [place] [address] Insurance Assigned Provider 08/04/22 08/03/23 Chavo Jack MD 40 [place] [address] [email or web address] Insurance Assigned Provider 08/03/23 05/04/24 Willi Wells MD [address] Vinayak 304_[place] [address] Rheumatology 02/04/24 Jose Thakur MD 30 [place] [address] [email or web address] Last Dipper Pulmonary Disease 03/17/24 Dana Rucker FNP 15 [facility], 2nd [place] [address] [email or web address] Nurse Practitioner Infectious Diseases 05/21/24 Jonathan Alvarez MD [address] [place] [address], [address] [place] [address] [email or web address] Urology 05/14/23 Anival Borja MD [address] [place] [address], [address] [place] [address] Neurologist Neurology 01/04/23 Lyndsay Reynoso FNP [address] [place] [address] [email or web address] Nurse Practitioner Pain Medicine 05/27/22 Gutierrez Pittman MD 40 [place] [phone] Pharmaceutical Laboratory Technician Cardiology 05/27/24 documented as of this encounter Additional Source Comments The information contained in this document represents components of the legal health record. It is not the complete legal health record.[facility]
--- OUTSIDE RECORDS SUMMARY | 2024-07-28 13:45 | XMS_ITS | Encounter Summary ---
Author Organization [facility] Address [email or web address] [place] [address] Phone Care Team Providers Care Sort Line Worker Name Role Phone Cash Fernandes MD Unavailable [phone] Keren Poon [facility] Primary Care Provid er Cahvo Jakc MD Unavailable Willi Wells MD Unavailable Jose Thakur MD Unavailable [phone] Dana Rucker BIRDCAGE ASSEMBLER Unavailable Jonathan Alvarez MD Unavailable [phone] Anival Borja MD Unavailable [phone] Lyndsay Reynoso BIRDCAGE ASSEMBLER Unavailable [phone] Gutierrez Pittman MD Unavailable [phone] Encounter Details Date Type Department Care Team (Late st Contact Info) Description 04/10/2024 Procedure Pass [facility], Ct Scan - [address] [address] Social History Tobacco Use Types Packs/Day Years [...] st Contact Info) Description 06/06/2024 Procedure Pass [address] [address] 07/30/2024 3:30 PM EDT Office Visit [facility] [address] [place] [address] [place] [address] Keren Poon, COLLEGE ADVISOR 170 [facility] [place], 2nd [place] [address] [email or web address] 08/04/2024 2:30 AM EDT [facility] [address] [place] [address] Orlando Mckeon RN 168 [place] [address] [email or web address] 08/11/2024 2:00 AM EDT [facility] [address] [place] [address] Orlando Mckeon RN 168 [place] [address] [email or web address] 08/18/2024 1:30 AM EDT [facility] [address] [place] [address] Orlando Mckeon RN 168 [place] [address] 08/25/2024 1:00 AM EDT Home [facility] 30 [place] [address] Orlando Mckeon RN 168 [place] [address] 09/01/2024 12:30 AM EDT Appointment [facility] 30 [place], [place] [phone] Orlando Mckeon RN 168 [place] [address] 09/18/2024 2:30 PM EDT Office Visit [facility] Infectious Diseases 22 [place] [address] Dana Rucker, BIRDCAGE ASSEMBLER 15 [facility], [address] [place] [address] 11/26/2024 3:30 PM EDT Office Visit [facility] [address] [place] [address] Keren Poon, COLLEGE ADVISOR [address] [address] 12/11/2024 2:00 PM EDT Appointment [facility] 30 [place] [address] Keren Poon, ORI [address] [address] 01/07/2025 2:30 PM EDT Office Visit [facility] [address] [place] [address] Jose Thakur MD 30 [place] [address] [email or web address] 06/03/2025 2:00 PM EST Office Visit [facility] [address] [place] [address] Dr [place] [address] Keren Poon CNP 170 [facility] [place], 2nd [place] [address] [email or web address] documented as of this encounter Visit Diagnoses [...] documented as of this encounter Care Teams Sort Line Worker Relationship Specialty Start Date End Date Keren Poon CNP [address] [place] [address], 2nd [place] [address] [email or web address] PCP - General Family Medicine 01/31/23 Cash Fernandes MD 10 [place] [address] [email or web address] Gastroenterology 08/23/20 Chavo Jack MD 40 [place] [address] [email or web address] Insurance Assigned Provider 08/03/23 05/04/24 Willi Wells MD [address] [place] [address] Drive [facility] 304_[place] [address] Rheumatology 02/04/24 Jose Thakur MD [address] [place] [address] [email or web address] Raiser Pulmonary Disease 03/17/24 Dana Rucker FNP 15 [facility], 2nd [place] [address] [email or web address] Nurse Practitioner Infectious Diseases 05/21/24 Jonathan Alvarez MD [address] [place] [address], [address] [place] [address] [email or web address] Urology 05/14/23 Anival Borja MD [address] [place] [address], [address] [place] [address] [email or web address] Neurologist Neurology 01/04/23 Lyndsay Reynoso FNP [address] [place] [address] [address] [place] [address] [email or web address] Nurse Practitioner Pain Medicine 05/27/22 Gutierrez Pittman MD 40 [place] [address] Chief Executive Cardiology 05/27/24 documented as of this encounter Additional Source Comments The information contained in this document represents components of the legal health record. It is not the complete legal health record.[facility]
--- OUTSIDE RECORDS SUMMARY | 2024-07-28 13:45 | XMS_ITS | Encounter Summary ---
Author Organization [facility] Address [address] [place] [address] Phone Care Team Providers Care Geographic Information Systems Engineer Name Role Phone JessicaMattie oliveirasheryl Mccrackengh [facility] Primary Care Provider Cash Fernandes MD Unavailable [phone] Seven Menchaca MD Unavailable [phone] Chavo Jack MD Primary Care Provider [phone] Keren Poon [facility] Primary Care Provid er Chavo Jack MD Unavailable Willi Wells MD Unavailable Jose Thakur MD Unavailable [phone] Dana Rucker HANDSTITCHING MACHINE COLLAR FELLER Unavailable [phone] Jonathan Alvarez MD Unavailable [phone] Anival Borja MD Unavailable [phone] Lyndsay Reynoso HANDSTITCHING MACHINE COLLAR FELLER Unavailable [phone] Gutierrez Pittman MD Unavailable [phone] Encounter Details Date Type Department Care Team (Late st Contact Info) Description 04/09/2022 Procedure Pass [facility], Ct Scan - [facility] 30 [place] [address] Social History Tobacco Use Types Packs/Day Years [...] high school, GED, job training, learning the Luxembourgish language, technical skills, or developing parenting skills)? [...] st Contact Info) Description 06/06/2024 Procedure Pass [facility], [facility] 30 [place] [address] 07/30/2024 3:30 PM EDT Office Visit [facility] [address] [place] [address] [place] [address] Keren Poon, OBSERVER GRAVITY PROSPECTING [address] [place] [address], 2nd [place] [address] 08/04/2024 2:30 AM EDT Home Care [facility] [address] [place] [phone] Orlando Mckeon RN [address] [place] [address] 08/11/2024 2:00 AM EDT Home Care [facility] [address] [place] [phone] Orlando Mckeon RN [address] [place] [address] 08/18/2024 1:30 AM EDT [facility] [address] [place] [phone] Orlando Mckeon RN [address] [place] [address] 08/25/2024 1:00 AM EDT [facility] [address] [place] [phone] Orlando Mckeon RN [address] [place] [address] 09/01/2024 12:30 AM EDT [facility]ointment [facility] [address] [place] [phone] Orlando Mckeon RN 168 [place] [address] 09/18/2024 2:30 PM EDT Office Visit [facility] Infectious Diseases 22 [place] [address] Dana Rucker, DIVYA 15 [facility], [address] [place] [address] 11/26/2024 3:30 PM EDT Office Visit [address] [place] [address] Keren Poon, ORI [address] [place] [address] 12/11/2024 2:00 PM EDT Appointment [facility] 30 [place] [address] Keren Poon, ORI [address] [address] 01/07/2025 2:30 PM EDT Office Visit [facility] [address] [place] [address] Jose Thakur MD 30 [place] [address] 06/03/2025 2:00 PM EST Office Visit [address] [place] [address] Keren Poon, ORI [address] [place] [address] documented as of this encounter Visit Diagnoses [...] documented as of this encounter Care Teams Geographic Information Systems Engineer Relationship Specialty Start Date End Date Ita Pineda CNP 40 [place] [address] [email or web address] PCP - General Internal Medicine 08/19/20 09/17/22 Chavo Jack MD 40 [place] [address] [email or web address] PCP - General Internal Medicine 09/18/22 01/30/23 Keren Poon CNP [address] [place] [address], 2nd [place] [address] PCP - General Family Medicine 01/31/23 Cash Fernandes MD 10 [place] [address] [email or web address] Gastroenterology 08/23/20 Seven Menchaca MD 40 [place] [address] [email or web address] Insurance Assigned Provider 08/04/22 08/03/23 Chavo Jack MD 40 [place] [address] [email or web address] Insurance Assigned Provider 08/03/23 05/04/24 Willi Wells MD 10 [address] [address] Rheumatology 02/04/24 Jose Thakur MD 30 [place] [address] [email or web address] Entry Level Web Developer Pulmonary Disease 03/17/24 Dana Rucker FNP 15 [facility], 2nd [place] [address] [email or web address] Nurse Practitioner Infectious Diseases 05/21/24 Jonathan Alvarez MD [address] [place] [address], [address] [place] [address] [email or web address] Urology 05/14/23 Anival Borja MD [address] [place] [address], [address] [place] [address] [email or web address] Neurologist Neurology 01/04/23 Lyndsay Reynoso FNP 10 [facility] [address] [place] [address] [email or web address] Nurse Practitioner Pain Medicine 05/27/22 Gutierrez Pittman MD [address] [place] [phone] Apprentice Lineman Third Step Cardiology 05/27/24 documented as of this encounter Additional Source Comments The information contained in this document represents components of the legal health record. It is not the complete legal health record.[facility]
--- OUTSIDE RECORDS SUMMARY | 2024-07-28 13:45 | XMS_ITS | Encounter Summary ---
Author Organization [facility] Address [address] [place] [address] Phone Care Team Providers Care Weblogic Developer Name Role Phone Cash Fernandes MD Unavailable [phone] Keren Poon [facility] Primary Care Provid er Willi Wells MD Unavailable Jose Thakur MD Unavailable [phone] Dana Rucker TRAFFIC OPERATIONS ENGINEER Unavailable Jonathan Alvarez MD Unavailable [phone] Anival Borja MD Unavailable [phone] Lyndsay Reynoso TRAFFIC OPERATIONS ENGINEER Unavailable Gutierrez Pittman MD Unavailable [phone] Encounter Details Date Type Department Care Team (Late st Contact Info) Description 05/09/2024 Procedure Pass [facility], Ct Scan - [address] [address] Social History Tobacco Use Types Packs/Day Years [...] st Contact Info) Description 06/06/2024 Procedure Pass [address] [address] 07/30/2024 3:30 PM EDT Office Visit [facility] [address] [place] [address] [place] [address] Keren Poon, WINTER INTERN 170 [facility], 2nd [place] [address] 08/04/2024 2:30 AM EDT [facility] [address] [place] [address] Orlando Mckeon RN [address] [place] [address] [email or web address] 08/11/2024 2:00 AM EDT [facility] [address] [place] [address] Orlando Mckeon RN [address] [place] [address] [email or web address] 08/18/2024 1:30 AM EDT [facility] [address] [place] [address] Orlando Mckeon RN [address] [place] [address] 08/25/2024 1:00 AM EDT Home [facility] 30 [place] [address] Orlando Mckeon RN 168 [place] [address] 09/01/2024 12:30 AM EDT Appointment [facility] 30 [place], [place] [phone] Orlando Mckeon RN 168 [place] [address] 09/18/2024 2:30 PM EDT Office Visit [facility] Infectious Diseases 22 [place] [address] Dana Rucker FNP [address] [address] 11/26/2024 3:30 PM EDT Office Visit [facility] [address] [place] [address] Keren Poon, WINTER INTERN [address] [address] 12/11/2024 2:00 PM EDT Appointment [facility] 30 [place] [address] Keren Poon, WINTER INTERN [address] [address] 01/07/2025 2:30 PM EDT Office Visit [facility] [address] [place] [address] Jose Thakur MD 30 [place] [address] 06/03/2025 2:00 PM EST Office Visit [facility] [address] [place] [address] [place] [address] [place]jayjay Kerenelsie Glaser CNP 170 [facility], 2nd Floor [place] documented as of this encounter Visit [...] documented as of this encounter Care Teams Weblogic Developer Relationship Specialty Start Date End Date Cleev Kerenelsie Glaser CNP [address] [place] [address], 2nd [facility] [place] [address] PCP - General Family Medicine 01/31/23 Cash Fernandes MD [address] [place] [address] Gastroenterology 08/23/20 Willi Wells MD [address] [place], [place] [address]Rheumatology [facility] [address] Rheumatology 02/04/24 Jose Thakur MD 30 [place] [address] Employment Evaluator/Case Manager Pulmonary Disease 03/17/24 Dana Rucker FNP 15 [facility], 2nd [place] [address] Nurse Practitioner Infectious Diseases 05/21/24 Jonathan Alvarez MD [address] [place] [address], [address] [place] [address] Urology 05/14/23 Anival Borja MD [address] [place] [address], [address] [place] [address] Neurologist Neurology 01/04/23 Lyndsay Reynoso FNP [address] [place] [address] [place] [address] [email or web address] Nurse Practitioner Pain Medicine 05/27/22 Gutierrez Pittman MD 40 [place] [address] Outcome Analyst Cardiology 05/27/24 documented as of this encounter Additional Source Comments The information contained in this document represents components of the legal health record. It is not the complete legal health record.[facility]
--- OUTSIDE RECORDS SUMMARY | 2024-07-28 13:45 | XMS_ITS | Encounter Summary ---
Author Organization [facility] Address [address] [place] [address] Phone Care Team Providers Care Front End Application Developer Name Role Phone Cash Fernandes MD Unavailable [phone] Keren Poon [facility] Primary Care Provid er Chavo Jack MD Unavailable Willi Wells MD Unavailable Jose Thakur MD Unavailable [phone] Dana Rucker FILLER SHREDDER HELPER Unavailable Jonathan Alvarez MD Unavailable [phone] Anival Borja MD Unavailable Lyndsay Reynoso FILLER SHREDDER HELPER Unavailable Gutierrez Pittman MD Unavailable [phone] Encounter Details Date Type Department Care Team (Latest Contact Info) Description 04/30/2024 Transcribe Orders Virtual Department 30 [place] [address] Argelia Taylor, JULI 10 [place], [place] [id number] Lower abdominal pain (Primary Dx); Diarrhea, unspecified [...] st Contact Info) Description 06/06/2024 Procedure Pass [address] [address] 07/30/2024 3:30 PM EDT Office Visit [facility] [address] [place] [address] [place] [address] Keren Poon, HVAC SERVICE MANAGER 170 [facility], 2nd [place] [address] 08/04/2024 2:30 AM EDT Home Care Visit [facility] [address] [place] [address] Orlando Mckeon RN [address] [place] [address] 08/11/2024 2:00 AM EDT [facility] [address] [place] [address] Orlando Mckeon RN [address] [place] [address] 08/18/2024 1:30 AM EDT Home Care Visit [facility] [address] [place] [phone] Orlando Mckeon RN [address] [place] [address] 08/25/2024 1:00 AM EDT Home Care Visit [facility] 30 [place] [address] Orlando Mckeon RN 168 [place] [address] 09/01/2024 12:30 AM EDT Appointment [facility] [address] [place] [address] Orlando Mckeon RN 168 [place] [address] 09/18/2024 2:30 PM EDT Office Visit [facility] 22 [place] [address] Dana Rucker, DIVYA [address] [address] 11/26/2024 3:30 PM EDT Office Visit [facility] [address] [place] [address] [place] [address] Keren Poon, HVAC SERVICE MANAGER [address] [address] 12/11/2024 2:00 PM EDT Appointment [facility] 30 [place] [address] Keren Poon, HVAC SERVICE MANAGER [address] [address] [email or web address] 01/07/2025 2:30 PM EDT Office Visit [facility] 10 [place] [address] Jose Thakur MD 30 [place] [address] 06/03/2025 2:00 PM EST Office Visit [facility] [address] [place] [address] [place] [address] Keren Poon CNP [address] [place] [address], [address] [place] [address] [place] [address] [email or web address] documented as of this encounter Visit Diagnoses [...] documented as of this encounter Care Teams Front End Application Developer Relationship Specialty Start Date End Date Keren Poon CNP [address] [place] [address], 2nd Floor [place]AGHAN H[place] [address] [email or web address] PCP - General Family Medicine 01/31/23 Cash Fernandes MD 10 [place] [address] [email or web address] Gastroenterology 08/23/20 Chavo Jack MD 40 [place] [address] [email or web address] Insurance Assigned Provider 08/03/23 05/04/24 Willi Wells MD [address] [place] [address] 304_[place] [address] Rheumatology 02/04/24 Jose Thakur MD [address] [place] [address] [email or web address] Management Tech Pulmonary Disease 03/17/24 Dana Rucker FNP 15 [facility], 2nd [place] [address] [email or web address] Nurse Practitioner Infectious Diseases 05/21/24 Jonathan Alvarez MD [address] [place] [address], [address] [place] [address] [email or web address] Urology 05/14/23 Anival Borja MD [address] [place] [address], [address] [place] [address] [email or web address] Neurologist Neurology 01/04/23 Lyndsay Reynoso FNP [address] [place] [address] [place] [address] [email or web address] Nurse Practitioner Pain Medicine 05/27/22 Gutierrez iPttman MD 40 [place] [address] Direct Chill Caster Cardiology 05/27/24 documented as of this encounter Additional Source Comments The information contained in this document represents components of the legal health record. It is not the complete legal health record.[facility]
--- OUTSIDE RECORDS SUMMARY | 2024-07-28 13:45 | XMS_ITS | Encounter Summary ---
Author Organization [facility] Address [address] [place] [address] Phone Care Team Providers Care Gluing Machine Adjuster Name Role Phone JessicaMattie oliveirasheryl Mccrackengh [facility] Primary Care Provider Cash Fernandes MD Unavailable [phone] Seven Menchaca MD Unavailable Chavo Jack MD Primary Care Provider Keren Poon [facility] Primary Care Provid er Chavo Jack MD Unavailable Willi Wells MD Unavailable Jose Thakur MD Unavailable Dana Rucker INSPECTING AND TESTING LEAD HAND Unavailable Jonathan Alvarez MD Unavailable [phone] Anival Borja MD Unavailable [phone] Lyndsay Reynoso INSPECTING AND TESTING LEAD HAND Unavailable [phone] Gutierrez Pittman MD Unavailable [phone] Encounter Details Date Type Department Care Team (Late st Contact Info) Description 02/10/2021 Procedure Pass [facility], Ct Scan - [facility] 30 [place] [address] Social History Tobacco Use Types Packs/Day Years [...] high school, GED, job training, learning the Tuvaluan language, technical skills, or developing parenting skills)? [...] st Contact Info) Description 06/06/2024 Procedure Pass [facility], [facility]- [address] [address] 07/30/2024 3:30 PM EDT Office Visit [facility] 170 [place] [address] Keren Poon, RESEARCH BIOSTATISTICIAN 170 [facility], 2nd [place] [address] 08/04/2024 2:30 AM EDT Home Care Visit [facility] [address] [place] [phone] Orlando Mckeon RN [address] [place] [address] 08/11/2024 2:00 AM EDT Home Care Visit [facility] [address] [place] [phone] Orlando Mckeon RN [address] [place] [address] 08/18/2024 1:30 AM EDT Home Care Visit [facility] [address] [place] [address] Orlando Mckeon RN [address] [place] [address] 08/25/2024 1:00 AM EDT Home Care Visit [facility] [address] [place] [phone] Orlando Mckeon RN [address] [place] [address] 09/01/2024 12:30 AM EDT Appointment [facility] [address] [place] [phone] Orlando Mckeon RN 168 [place] [address] 09/18/2024 2:30 PM EDT Office Visit [facility] Infectious Diseases 22 [place] [address] Dana Rucker FNP 15 [facility], [address] [place] [address] 11/26/2024 3:30 PM EDT Office Visit [address] [place] [address] Keren Poon, ORI [address] [place] [address] 12/11/2024 2:00 PM EDT Appointment [facility], [facility] 30 [place] [address] Keren Poon, ORI [address] [address] 01/07/2025 2:30 PM EDT Office Visit [facility] [address] [place] [address] Jose Thakur MD 30 [place] [address] 06/03/2025 2:00 PM EST Office Visit [address] [place] [address] Keren Poon, ORI [address] [place] [address] documented as of this encounter Visit Diagnoses [...] documented as of this encounter Care Teams Gluing Machine Adjuster Relationship Specialty Start Date End Date Ita Pineda CNP 40 [place] [address] [email or web address] PCP - General Internal Medicine 08/19/20 09/17/22 Chavo Jack MD 40 [place] [address] [email or web address] PCP - General Internal Medicine 09/18/22 01/30/23 Keren Poon CNP [address] [place] [address], 2nd [place] [address] [email or web address] PCP - General Family Medicine 01/31/23 Cash Fernandes MD 10 [place] [address] [email or web address] Gastroenterology 08/23/20 Seven Menchaca MD [address] [place] [address] [email or web address] Insurance Assigned Provider 08/04/22 08/03/23 Chavo Jack MD 40 [place] [address] [email or web address] Insurance Assigned Provider 08/03/23 05/04/24 Willi Wells MD [address] [place] [address] [address] Rheumatology 02/04/24 Jose Thakur MD [address] [place] [address] [email or web address] Entry Level Recruiter Pulmonary Disease 03/17/24 Dana Rucker FNP 15 [facility], 2nd [place] [address] [email or web address] Nurse Practitioner Infectious Diseases 05/21/24 Jonathan Alvarez MD [facility], [address] [address] [email or web address] Urology 05/14/23 Anival Borja MD [address] [place] [address], [address] [place] [address] [email or web address] Neurologist Neurology 01/04/23 Lyndsay Reynoso FNP [address] [place] [address] [email or web address] Nurse Practitioner Pain Medicine 05/27/22 Gutierrez Pittman MD 40 [place] [address] Trust Clerk Cardiology 05/27/24 documented as of this encounter Additional Source Comments The information contained in this document represents components of the legal health record. It is not the complete legal health record.[facility]
--- OUTSIDE RECORDS SUMMARY | 2024-07-28 13:45 | XMS_ITS | Encounter Summary ---
Author Organization [facility] Address [address] [place] [address] Care Team Providers Care Community Marketing Coordinator Name Role Phone Cheryl Calderon MD Primary Care Provider [phone] Encounter Details Date Type Department Care Team (Late st Contact Info) Description 11/18/2018 Orders Only [facility] Hematology/Oncology 1 [facility] [address] [place] [phone] Liliana Calderon, JULI 5 [place] [address] Social History Tobacco Use Types Packs/Day Years [...] 12:14 AM EDT Narrative Resulting Agency Comment [id number] Liliana Calderon NP LABORATORY Final Result Performing Organization Address [facility] Co de Phone Number [facility] [address] [place] [address] * (ABNORMAL) FERRITIN (11/18/2018 3:38 PM EDT) Ferritin 634(H) 16 - 288 ng/mL [facility] 11/18/2018 3:38 PM EDT 11/19/2018 12:14 AM EDT Narrative Resulting Agency Comment [id number] Liliana Calderon NP LABORATORY Final Result Performing Organization Address City/[facility] Co de Phone Number [facility] [address] [place] [address] * LACTATE DEHYDROGENASE (LDH), SERUM (11/18/2018 3:38 PM EDT) Lactate dehydrogenase 156 120 - 250 U/L [facility] 11/18/2018 3:38 PM EDT 11/19/2018 12:14 AM EDT Narrative Resulting Agency Comment [id number] Liliana Calderon NP LABORATORY Final Result Performing Organization Address City/[facility]/ZIP Co de Phone Number [facility] [address] [place] [address] * (ABNORMAL) CBC INCLUDES DIFFERENTIAL AND PLATELET [...] 12:14 AM EDT Narrative Resulting Agency Comment [id number] Liliana Calderon ANTHROPOLOGIST LAB SAME DAY RESULT Final Result [facility] [address] [place] [address] documented in this encounter Visit Diagnoses Diagnosis Leukopenia, unspecified type Iron deficiency Iron deficiency anemia, unspecified documented in this encounter Care Teams Community Marketing Coordinator Relationship Specialty Start Date End Date Cheryl Calderon MD [facility] [address] [place] [address] PCP - General Internal Medicine 07/17/17 documented as of this encounter
--- OUTSIDE RECORDS SUMMARY | 2024-07-28 13:45 | XMS_ITS | Encounter Summary ---
Author Organization [facility] Address [address] [place] [address] Phone Care Team Providers Care Fan Engine Engineer Name Role Phone Patrick Sanchez MD Unavailable [phone] Cheryl Calderon MD Primary Care Provider Keren Mabry MD Unavailable [phone] Louisa Hogan MD Unavailable Charly Saxena DO Unavailable [phone] Abhinav Muhammad MD Unavailable [phone] Cheryl Giraldo FISHING TOOL SUPERVISOR Unavailable Wilfrido Steel MD Unavailable [phone] Sharon Martin PA-C Unavailable Ita Pineda SORTING GRAPPLE OPERATOR Primary Care Provider Cash Fernandes MD Unavailable [phone] Seven Menchaca MD Unavailable Chavo Jack MD Primary Care Provider Keren Poon SORTING GRAPPLE OPERATOR Primary Care Provid er Chavo Jack MD Unavailable Willi Wells MD Unavailable Jose Thakur MD Unavailable [phone] Dana Rucker HALL TENDER Unavailable Jonathan Alvarez MD Unavailable [phone] Anival Borja MD Unavailable [phone] Lyndsay Linda HALL TENDER Unavailable [phone] Gutierrez Pittman MD Unavailable Encounter Details Date Type Department Care Team (Late st Contact Info) Description 08/18/2020 Procedure Pass , Ct Scan [address] [address] Social History Tobacco Use Types Packs/Day Years [...] st Contact Info) Description 06/06/2024 Procedure Pass , [address] [address] 07/30/2024 3:30 PM EDT Office Visit [facility] [address] [place] [address] [place] [address] Keren Poon, SORTING GRAPPLE OPERATOR [address] [place] [address], 2nd [place] [address] [email or web address] 08/04/2024 2:30 AM EDT Home Care Visit [facility] [address] [place] [phone] Orlando Mckeon, RENZO 168 [place] [address] 08/11/2024 2:00 AM EDT [facility] 30 [place] [address] Orlando Mckeon RN 168 [place] [address] 08/18/2024 1:30 AM EDT Home [facility] [address] [place] [phone] Orlando Mckeon RN 168 [place] [address] 08/25/2024 1:00 AM EDT Home Care Visit [facility] [address] [place] [phone] Orlando Mckeon, RENZO 168 [place] [address] 09/01/2024 12:30 AM EDT Appointment [facility] [address] [place] [phone] Orlando Mckeon, RENZO 168 [place] [address] 09/18/2024 2:30 PM EDT Office Visit [facility] 22 [place] [address] Dana Rucker FNP 15 [facility], 2nd [place] [address] 11/26/2024 3:30 PM EDT Office Visit [facility] [address] [place] [address] [place] [address] Keren Poon, ORI 170 [facility], 2nd [facility] [place] [address] [email or web address] 12/11/2024 2:00 PM EDT Appointment [facility] 30 [place] [address] Keren Poon CNP 170 [facility], 2nd [place] [address] 01/07/2025 2:30 PM EDT Office Visit [facility] [address] [place] [address] Jose Thakur MD [address] [place] [address] 06/03/2025 2:00 PM EST Office Visit [facility] [address] [place] [address] [place] [address] Keren Poon, ORI 170 [facility], [address] [place] [address] documented as of this encounter Visit Diagnoses [...] documented as of this encounter Care Teams Fan Engine Engineer Relationship Specialty Start Date End Date Cheryl Calderon MD [address] [place] [address] PCP - General Family Medicine 04/23/18 08/18/20 Ita Pineda CNP 40 [place] [address] PCP - General Internal Medicine 08/19/20 09/17/22 Chavo Jack MD 40 [place] [address] PCP - General Internal Medicine 09/18/22 01/30/23 Keren Poon CNP [address] [place] [address], 2nd [place] [address] PCP - General Family Medicine 01/31/23 Patrick Sanchez MD [address] [place] [address] Department [place] [address] [email or web address] Historical LMR Provider 09/10/14 Keren Mabry MD [address] [place] [address] Historical LMR Provider 07/10/18 [place] [address] [place] [address] [email or web address] Historical LMR Provider 07/10/1807/29 Charly Saxena DO [address] [place] [address] Historical LMR Provider 07/10/18 Abhinav Muhammad MD [address] [place] [address] [email or web address] Historical LMR Provider 07/10/18 08/22/20 Cheryl Giraldo NP 94 [place] [address] Historical LMR Provider 07/10/18 Wilfrido Steel MD 12 [facility]. [address] [place] [address] Historical LMR Provider 07/10/18 Sharon Martin PA-C [address] [place] [address] [email or web address] Historical LMR Provider 07/10/18 08/22/20 Cash Fernandes MD 10 [place] [address] Gastroenterology 08/23/20 Seven Menchaca MD 40 [place] [address] Insurance Assigned Provider 08/04/22 08/03/23 Chavo Jack MD 40 [place] [address] Insurance Assigned Provider 08/03/23 05/04/24 Willi Wells MD [address] Vinayak 304_[place] [address] Rheumatology 02/04/24 Jose Thakur MD [address] [place] [address] [email or web address] Arterial Embalmer Pulmonary Disease 03/17/24 Dana Rucker FNP 15 [facility], 2nd [place] [address] [email or web address] Nurse Practitioner Infectious Diseases 05/21/24 Jonathan Alvarez MD [address] [place] [address], [address] [place] [address] [email or web address] Urology 05/14/23 Anival Borja MD [address] [place] [address], [address] [place] [address] Neurologist Neurology 01/04/23 Lyndsay Reynoso FNP [address] [place] [address] [email or web address] Nurse Practitioner Pain Medicine 05/27/22 Gutierrez Pittman MD [address] [place] [phone] Security Vehicle Patrol Officer Cardiology 05/27/24 documented as of this encounter Additional Source Comments The information contained in this document represents components of the legal health record. It is not the complete legal health record.[facility]
--- OUTSIDE RECORDS SUMMARY | 2024-07-28 13:45 | XMS_ITS | Encounter Summary ---
Author Organization [facility] Address [address] [place] [address] Phone Care Team Providers Care Ordering Box Operator Name Role Phone JessicaMattie oliveirasheryl Mccrackengh [facility] Primary Care Provider Cash Fernandes MD Unavailable [phone] Seven Menchaca MD Unavailable Chavo Jack MD Primary Care Provider [phone] Keren Poon [facility] Primary Care Provid er Chavo Jack MD Unavailable Willi Wells MD Unavailable Jose Thakur MD Unavailable Dana Rucker WOOD FENCE ERECTOR Unavailable Jonathan Alvarez MD Unavailable [phone] Anival Borja MD Unavailable Lyndsay Reynoso WOOD FENCE ERECTOR Unavailable [phone] Gutierrez Pittman MD Unavailable [phone] Reason for Referral * MRI/CAT Scan - Closed Specialty Diagnoses / Procedures Referred By Cayedn montoya Referred To Contact Radiology Diagnoses Epigastric abdominal pain FH: pancreatic cancer Procedures CT Abdomen Only (No Pelvis) Argelia Taylor NP [address] [place] [address] Referral ID Status Reason Start Date Expiration Date Visits Re quested Visits Authorized [id number] Closed 04/09/2022 04/09/2023 1 1 Encounter Details Date Type Department Care Team (Latest Contact Info) Description 04/09/2022 Transcribe Orders Virtual Department [address] [place] [address] Argelia Taylor NP [address] [place] [address] Epigastric abdominal pain (Primary Dx); FH: pancreatic [...] high school, GED, job training, learning the Ukrainian language, technical skills, or developing parenting skills)? [...] st Contact Info) Description 06/06/2024 Procedure Pass [address] [address] 07/30/2024 3:30 PM EDT Office Visit [facility] [address] [place] [address] [place] [address] Keren Poon, OIL WELL LOGGER [address] [facility], 2nd [place] [address] 08/04/2024 2:30 AM EDT Home [facility] Visit [facility] [address] [place] [address] Orlando Mckeon RN [address] [place] [address] 08/11/2024 2:00 AM EDT Home [facility] Visit [facility] [address] [place] [phone] Orlando Mckeon RN [address] [place] [address] 08/18/2024 1:30 AM EDT Home [facility] [address] [place] [address] Orlando Mckeon RN [address] [place] [address] 08/25/2024 1:00 AM EDT Home Care Visit [facility] [address] [place] [address] Orlando Mckeon RN [address] [place] [address] 09/01/2024 12:30 AM EDT [facility] [address] [place] [phone] Orlando Mckeon RN [address] [place] [address] 09/18/2024 2:30 PM EDT Office Visit [facility] Infectious Diseases [address] [place] [address] Dana Rucker, WOOD FENCE ERECTOR [address] [address] 11/26/2024 3:30 PM EDT Office Visit [facility] [address] [place] [address] [place] [address] Keren Poon, OIL WELL LOGGER [address] [address] 12/11/2024 2:00 PM EDT Appointment [address] [address] Keren Poon, ORI [address] [address] 01/07/2025 2:30 PM EDT Office Visit [facility] [address] [place] [address] Jose Thakur MD [address] [place] [address] 06/03/2025 2:00 PM EST Office Visit [facility] [address] [place] [address] Keren Poon, ORI [address] [facility], [address]nd [place] [address] [email or web address] documented as of this encounter Results * [...] providers of potentially importantfindings. Argelia Madina Willemain MEDIATOR IMG CT XSPECIALTY ORDERABLES documented in this [...] documented as of this encounter Care Teams Ordering Box Operator Relationship Specialty Start Date End Date Ita Pineda CNP [address] [place] [address] PCP - General Internal Medicine 08/19/20 09/17/22 Chavo Jack MD [address] [place] [address] PCP - General Internal Medicine 09/18/22 01/30/23 Keren Poon CNP [address] [place] [address], [address] [place] [address] [email or web address] PCP - General Family Medicine 01/31/23 Cash Fernandes MD [address] [place] [address] [email or web address] Gastroenterology 08/23/20 Seven Menchaca MD [address] [place] [address] [email or web address] Insurance Assigned Provider 08/04/22 08/03/23 Chavo Jack MD [address] [place] [address] [email or web address] Insurance Assigned Provider 08/03/23 05/04/24 Willi Wells MD [address] [address] Rheumatology 02/04/24 Jose Thakur MD [address] [place] [address] [email or web address] Medical Data Analyst Pulmonary Disease 03/17/24 Dana Rucker FNP 15 [facility], [address] [place] [phone] [email or web address] Nurse Practitioner Infectious Diseases 05/21/24 Jonathan Alvarez MD [address] [place] [address], [address] [place] [address] [email or web address] Urology 05/14/23 Anival Borja MD [address] [place] [address], [address] [place] [address] [email or web address] Neurologist Neurology 01/04/23 Lyndsay Reynoso FNP [address] [place] [address] [place] [phone] [email or web address] Nurse Practitioner Pain Medicine 05/27/22 Gutierrez Pittman MD [address] [place] [phone] Personal Care Aid Cardiology 05/27/24 documented as of this encounter Additional Source Comments The information contained in this document represents components of the legal health record. It is not the complete legal health record.[facility]
--- OUTSIDE RECORDS SUMMARY | 2024-07-28 13:45 | XMS_ITS | Clinical Summary ---
Author Organization [facility] Address [address] [place] [address] Phone Care Team Providers Care Social Sciences Instructor Name Role Phone Cash Fernandes MD Unavailable [phone] Keren Poon [facility] Primary Care Provid er Willi Wells MD Unavailable Jose Thakur MD Unavailable [phone] Dana Rukcer GLASS GRINDER Unavailable [phone] Jonathan Alvarez MD Unavailable [phone] Anival Borja MD Unavailable [phone] Lyndsay Reynoso GLASS GRINDER Unavailable Gutierrez Pittman MD Unavailable [phone] Allergies Active Allergy Reactions Criticality Noted Date Comments Codeine Itching,Swelling,Oth er (See Comments) 08/26/2008 Aoahzct-Hpptopagcg-Ebo-Caff 08/21/19 21 Gold Salts Hives 08/26/2008 Nitrofurantoin [...] daily. Active azelastine-flutica sone (DYMISTA) 137-50 mcg/spray [place] 1 spray by Each Nare route 2 [...] of future UTIs. A referral to a blow molding machine operator will be made. 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 Patient has regular echocardiograms manages blood pressure and continues to take low-dose furosemide held iso setting of volume depletion. 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 Patient has regular echocardiograms manages blood pressure and continues to take low-dose furosemide which I will hold in the setting of volume depletion. 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 Patient has regular echocardiograms manages blood pressure and continues to take low-dose furosemide which I will hold in the setting of volume depletion. 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 A referral to a asbestos abatement worker will be made today. If there is no improvement, a follow-up with the asbestos abatement worker is recommended. Allergic rhinitis 11/21/2023 Assessment & [...] neurology (Dr Borja) and also [place] Assessment & Plan (09/09/2023 8:42 AM EDT): Left sided face and head pain w/ dx: occipital neuralgia. Recently had nerve ablation performed on the left side, no improvement noted from this procedure yet. Followed by neurology (Dr Borja) and also [place] Assessment & Plan (06/07/2023 12:36 PM EST): Left sided face and head pain w/ dx: occipital neuralgia over the last 9 months. Followed by neurology (Dr Borja) and also [place] Awaiting insurance approval for nerve ablation per her report. Assessment & Plan (05/23/2023 2:20 PM EST): Left sided face and head pain w/ dx: occipital neuralgia over the last 8-9 months. Followed by neurology (Dr Borja) and also pain management [place] Cervical radiculopathy 05/25/2022 Assessment & Plan (06/06/2024 [...] & Plan (04/15/2024 8:14 PM EST): Sees asbestos abatement worker for shortness of breath with exertion uses oxygen as needed has sleep apnea but untreated-in the past had difficulty with CPAP machine Assessment & Plan (04/14/2024 2:18 PM EST): Sees asbestos abatement worker for shortness of breath with exertion uses oxygen as needed has sleep apnea but untreated-in the past had difficulty with CPAP machine Assessment & Plan (04/13/2024 11:58 AM EST): Sees asbestos abatement worker for shortness of breath with exertion uses [...] AC. HRR on exam today. Followed by [facility] cardiology (Dr Pittman). Assessment & Plan (05/12/2024 [...] scheduled for a follow-up appointment with her booster pump oiler, Dr. Puckett, on 09/11/2023. If required, I [...] -waiting on a new appointment with a glass etcher helper to resume treatment, has had increasing joint pain and is now close to 3 months overdue for Rituxan, ID can advise in follow up on resuming. -no indication for stress dose steroids. Assessment & Plan (07/12/2024 9:11 AM EDT): -maintained on prednisone, Rituxan methotrexate, Rituxan and methotrexate were held last admission and have remained on hold -waiting on a new appointment with a glass etcher helper to resume treatment, has had increasing joint pain and is now close to 3 months overdue for Rituxan, will have infectious diseases weigh in -no indication for stress dose steroids. Assessment & Plan (07/11/2024 8:43 AM EDT): -maintained on prednisone, Rituxan methotrexate, Rituxan and methotrexate were held last admission and have remained on hold -waiting on a new appointment with a glass etcher helper to resume treatment, has had increasing joint [...] waiting on a new appointment with a glass etcher helper to resume treatment, has had increasing joint [...] patient will continue her follow-up with her glass etcher helper, Dr. Franklin, in 09/2023. Assessment & Plan [...] (05/25/2022 9:19 PM EST): Establishing with new glass etcher helper. Discussed planning to reduce frequency and dose [...] She is unable to enroll in [place] [facility] [place] due to use of [...] follow-up with the pain management team at [place]. 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 difficile colitis (Primary Dx) 07/24/2024 Telephone [facility] Infectious Diseases [address] [place] [address] [place] [address] Dana Rucker FNP Medication Prior Authorization (VOWST) 07/23/2024 Refill [facility] [address] [place] [address] [place] [address] Keren Poon, ORI Medication Refill 07/22/2024 4:00 AM EDT Home Care Visit [facility] [address] [place] [phone] Sunitha Macias LPN HUMANITIES INSTRUCTOR HOME VISIT 07/21/2024 10:00 AM EDT Home Care Visit [facility] [address] [place] [phone] Elida Schreiber, PT PT EVALUATION 07/20/2024 Home Care Visit [facility] [address] [place] [phone] Elida Schreiber, PT TELEPHONE ENCOUNTER 07/17/2024 Home Care Visit [facility] [address], [place] [phone] Linda Melchor, PT CASE COMMUNICATION 07/16/2024 Telephone [facility] [address] [place] [address] [place] [address] Keren Poon, INTERNET MARKETING ASSISTANT [facility] 07/16/2024 Plan of Care Documentation [facility] [address] [place] [address] 07/14/2024 11:00 AM EDT Home Care Visit [facility] [address] [place] [phone] Dante Haynes, RN SN OASIS START OF CARE (SOC) 07/13/2024 Documentation [facility] Neurology [address] [place] [address] Dana Rucker, DIVYA 07/11/2024 Orders Only [facility] [address] [place] [address] Homehealth, Interface MD Estrellita 07/10/2024 6:25 AM EDT - 07/13/2024 1:50 PM EDT Hospital Encounter [facility] [address] [place] [address] Ismael Singh MD Morse, Peter, MD Grachev, Maksim, DO Altman, Evan K, , MPH Discharge Disposition: Home-Health Care Svc 07/10/2024 Procedure Pass [facility], [facility] [address] [place] [phone] 07/09/2024 10:30 AM EDT Home Care Visit [facility] [address] [place] [address] Merly Matos, PT PT OASIS DISCHARGE VISIT 07/07/2024 1:30 PM EDT Home Care Visit [facility] [address] [place] [phone] MasonvilleMiya cummins PTA SENIOR OFFICE SUPPORT ASSISTANT SOSA HOME VISIT 07/02/2024 2:00 PM EST Home Care Visit [facility] [address] [place] [address] Miya Monte PTA SENIOR OFFICE SUPPORT ASSISTANT SOSA HOME VISIT 07/01/2024 2:30 PM EST Office Visit [facility] All[facility] [address] [place] [address] Jose Thakur MD Dyspnea on exertion (Primary Dx) 06/30/2024 1:30 PM EST Home Care Visit [facility] [address] [place] [address] Miya Monte PTA SENIOR OFFICE SUPPORT ASSISTANT SOSA HOME VISIT 06/26/2024 2:00 PM EST Home Care Visit [facility] [address] [place] [address] Miya Monte PTA SENIOR OFFICE SUPPORT ASSISTANT SOSA HOME VISIT 06/25/2024 9:15 AM EST Home Care Visit [facility] [address] [place] [address] Dante Haynes, RENZO SN DISCIPLINE DISCHARGE VISIT 06/24/2024 10:45 AM EST Home Care Visit [facility] [address] [place] [address] Miya Monte PTA SENIOR OFFICE SUPPORT ASSISTANT SOSA HOME VISIT 06/19/2024 2:30 PM EST Office Visit [facility] Infectious Diseases [address] [place] [address] Dana Rucker, DIVYA C. difficile colitis (Primary Dx); Recurrent urinary tract infection 06/18/2024 4:30 PM EST Home Care Visit [facility] [address] [place] [address] Merly Matos, PT PT TFA VISIT 06/16/2024 9:30 AM EST Home Care Visit [facility] [address] [place] [address] Dante Haynes, RN SN HOME VISIT 06/10/2024 [facility] [address] [place] [address] [place] [address] Keren Poon CNP Medication Refill 06/09/2024 10:30 AM EST Home Care Visit [facility] [address] [place] [address] Dante Haynes, RENZO SN HOME VISIT 06/09/2024 9:30 AM EST Home Care Visit [facility] [address] [place] [address] Miya Monte, SENIOR OFFICE SUPPORT ASSISTANT SOSA SENIOR OFFICE SUPPORT ASSISTANT SOSA HOME VISIT 06/05/2024 11:00 AM EST Home Care Visit [facility] [address] [place] [address] Miya Monte, SENIOR OFFICE SUPPORT ASSISTANT SOSA SENIOR OFFICE SUPPORT ASSISTANT SOSA HOME VISIT 06/02/2024 10:15 AM EST Home Care Visit [facility] [address] [place] [address] Miya Monte, SENIOR OFFICE SUPPORT ASSISTANT SOSA SENIOR OFFICE SUPPORT ASSISTANT SOSA HOME VISIT 06/02/2024 9:00 AM EST Home Care Visit [facility] [address] [place] [address] Dante Haynes RN SN HOME VISIT 05/29/2024 11:15 AM EST Home Care Visit [facility] [address] [place] [address] Miya Monte, SENIOR OFFICE SUPPORT ASSISTANT SOSA SENIOR OFFICE SUPPORT ASSISTANT SOSA HOME VISIT 05/27/2024 2:00 PM EST Office Visit [facility] [address] [place] [address] [place] [address] Keren Poon CNP Encounter for health maintenance [...] 10:15 AM EST Home Care Visit [facility] [address] [place] [address] Miya Monte, SENIOR OFFICE SUPPORT ASSISTANT SOSA SENIOR OFFICE SUPPORT ASSISTANT SOSA HOME VISIT 05/26/2024 11:00 AM EST Home Care Visit [facility] [address] [place] [address] Dante Haynes, RENZO SN HOME VISIT 05/22/2024 1:00 PM EST [facility] [address] [place] [address] Asmita Montiel, PT PT EVALUATION 05/22/2024 1:00 PM EST Home Care Visit [facility] [address] [place] [address] Dante Haynes RN SN HOME VISIT 05/22/2024 Telephone [facility] Infectious Diseases [address] [place] [address] [place] [address] Dana Rucker FNP Medication Question (Vancomycin ) 05/21/2024 11:30 AM EST Office Visit [facility] Infectious Diseases [address] [place] [address] [place] [address] Adam Treadwell MD Markens, Beth Ashley, FNP C. difficile colitis (Primary Dx); Recurrent urinary tract infection; Urinary incontinence, unspecified type 05/21/2024 Telephone [facility] [address] [place] [address] Keren Poon, INTERNET MARKETING ASSISTANT Medication Refill 05/20/2024 9:15 AM EST Home Care Visit [facility] [address] [place] [phone] Orlando Mckeon, RN SN HOME VISIT 05/15/2024 Home Care Visit [facility] [address] [place] [phone] Paulina Garay, NANCY TELEPHONE ENCOUNTER 05/14/2024 12:00 PM EST Home Care Visit [facility] [address] [place] [phone] Andreas Reyes, RN SN OASIS START OF CARE (SOC) 05/14/2024 Plan of Care Documentation [facility] [address] [place] [phone] 05/14/2024 Telephone [facility] [address] [place] [address] Keren Poon CNP Request For Order(s) 05/14/2024 Telephone [facility] Infectious Diseases [address] [place] [address] Dana Rucker FNP 05/13/2024 Procedure Pass [facility] Admitting Dept Virtual Department [address] [place] [address] 05/13/2024 Telephone [facility] Diseases [address] [place] [address] Belinda Cho [place], [place] 05/13/2024 Orders Only [facility] [address] [place] [phone] Homehealth, Interface ProviderMD 05/09/2024 Procedure Pass [facility], [facility] [address] [place] [address] 05/07/2024 7:54 PM EST - 05/13/2024 6:17 PM EST Hospital Encounter [facility] [address] [place] [address] Marco Antonio Brooks, Gutierrez Kelly, David Acuña MD Lipkin-Moore, Zachary M, MD Zaman, Tonbira S, MD Arepally, Sandeep, MD Discharge Disposition: Home-Health Care Svc 05/07/2024 [address] [facility] [address] [place] [address] Keren Poon CNP Yellow Call Diarrhea 05/01/2024 1:40 PM EST - 05/01/2024 11:59 PM EST Hospital Encounter [facility], X-Ray - [facility] [address] [place] [address] Argelia Taylor NP Discharge Disposition: Home or Self Care 05/01/2024 Ancillary Orders Virtual Department [address] [place] [phone] Argelia Taylor NP Lower abdominal pain (Primary Dx); Diarrhea, unspecified type; Bloating; Change in bowel habits 04/30/2024 2:30 PM EST Office Visit [address] [place] [address] Keren Poon CNP C. difficile colitis (Primary Dx); Acute cystitis without hematuria; Atrophic vaginitis; Rheumatoid arthritis involving multiple sites, unspecified whether rheumatoid factor present; Generalized abdominal pain 04/30/2024 Transcribe Orders Virtual Department [address] [place] [address] Argelia Taylor NP Lower abdominal pain (Primary Dx); Diarrhea, unspecified type; Bloating; Change in bowel habits from Last 3 Months Immunizations Name Administration Dates Next Due COVID-19 (Pre-02/18) Pfizer Vaccine, mRNA, mohan-sucrose, PF 09/11/2021 [id number] FORMULATION 05/13/2009 Influenza High-Dose Quadriva lent Preservative [...] Info) Description 06/06/2024 Procedure Pass [facility], [facility] [address] [place] [address] 07/30/2024 3:30 PM EDT Office Visit [facility] [address] [place] [address] Keren Poon, INTERNET MARKETING ASSISTANT [address] [facility], [address]nd [place] [address] [email or web address] 08/04/2024 2:30 AM EDT Home Care Visit [facility] [address] [place] [phone] Orlando Mckeon RN [address] [place] [address] [email or web address] 08/11/2024 2:00 AM EDT Home Care Visit [facility] [address] [place] [phone] Orlando Mckeon RN [address] [place] [phone] [email or web address] 08/18/2024 1:30 AM EDT Home Care Visit [facility] [address] [place] [address] Orlando Mckeon RN [address] [place] [phone] [email or web address] 08/25/2024 1:00 AM EDT Home Care Visit [facility] [address] [place] [phone] Orlando Mckeon RN [address] [place] [phone] [email or web address] 09/01/2024 12:30 AM EDT Appointment [facility] [address] [place] [phone] Orlando Mckeon RN [address] [place] [address] 09/18/2024 2:30 PM EDT Office Visit [facility] Infectious Diseases [address] [place] [address] Dana Rucker FNP [address] [address] 11/26/2024 3:30 PM EDT Office Visit [address] [place] [address] Keren Poon, ORI [address] [place] [address] 12/11/2024 2:00 PM EDT Appointment [facility], [facility] [address] [place] [address] Keren Poon, ORI [address] [place] [address] 01/07/2025 2:30 PM EDT Office Visit [facility] [address] [place] [address] Jose Thakur MD [address] [place] [address] 06/03/2025 2:00 PM EST Office Visit [address] [place] [address] Keren Poon, ORI [address] [address] [email or web address] Health Maintenance Due Date Last Done Comments [...] Additional history exists TSH LEVEL 07/12/2025 07/12/2024, 0908/2023, 06/13/2022, Additional history exists SCREENING FOR DIABETES [...] this topic Medical Devices Implanted Type Area Rug Hooker Hand Device Identifier Shelf Expiration Date Model / Serial / Lot Screw Bone 2.4x28mm Compression Long Thread Headless - [id number] Implanted:Qty: 2 on 12/20/2017 by Patrick Sanchez MD at [facility] NODATA Right: Hand SYNTHES 02.226.3 28 / / Stem Finger Size 20 Metacarpophalangeal Distal Silicone Preflexed - [id number] Implanted:Qty: 1 on 12/20/2017 by Patrick Sanchez MD at [facility] STANDARD Right: Hand [employer] MJ 02/27/2020 [id number] / / [id number] Stem Finger Size 20 Metacarpophalangeal Distal Silicone Preflexed - [id number] Implanted:Qty: 1 on 12/20/2017 by Patrick Sanchez MD at [facility] STANDARD Right: Hand [employer] MJ 08/27/2019 [id number] / / [id number] Stem Finger Joint Metacarpophalangeal Size 10 Silicone Preflexed- Duplicate - Use Ps # [id number] - [id number] Implanted:Qty: 1 on 12/20/2017 by Patrick Sanchez MD at [facility] STANDARD Right: Hand [employer] MJ 02/27/2020 [id number] / / [id number] Implant Finger Size 5 Pre Flexed Cementless Mcp Pyrocarbon Silicone - [id number] Implanted:Qty: 1 on 12/20/2017 by Patrick Sanchez MD at [facility] STANDARD Right: Hand [employer] MJ 02/27/2020 [id number] / / [id number] Right Ankle,Hand,Elbow Left Hand Procedures Procedure Name [...] LAB BLOOD ORDERABL ES Performing Organization Address [facility] Co de Phone Number [address] [address] * (ABNORMAL) C-Reactive Protein (07/12/2024 5:44 AM EDT) Only the most recent of3 resultswithin the time period is included. C REACTIVE PROTEIN 127.1(H) 0.0 - 4.0 mg/L [facility] Blood 07/12/2024 5:44 AM EDT 07/12/2024 6:05 AM EDT Yoly Grimes DO, MPH LAB BLOOD ORDERABL ES Performing Organization Address City/[facility]/ZIP Co de Phone Number [address] [address] * TSH (07/12/2024 5:44 AM EDT) TSH 2.09 0.27 - 4.20 uIU/mL [facility] 07/12/2024 5:44 AM EDT 07/12/2024 6:05 AM EDT Yoly Grimes DO, MPH LAB BLOOD ORDERABL ES Performing Organization Address [facility] Co de Phone Number [address] [address] * (ABNORMAL) Basic metabolic panel (07/12/2024 5:44 AM EDT) Only the most recent of11 resultswithin the time period is included. Pathologist [facility] SODIUM 145 133 - 146 mmol/L [place] [...] LAB BLOOD ORDERABL ES Performing Organization Address [facility] Co de Phone Number [address] [address] * (ABNORMAL) Comprehensive metabolic panel (07/11/2024 5:48 [...] EDT 07/11/2024 6:07 AM EDT Joann Michael BUSINESS BANKING RELATIONSHIP MANAGER LAB BLOOD ORDER LEDY [facility] [address] [place] [address] * (ABNORMAL) CBC and differential (07/11/2024 5:48 [...] Joann Michael NP LAB BLOOD ORDER LEDY [facility] [address] [place] [address] * (ABNORMAL) Phosphorus (07/11/2024 5:48 AM EDT) Only the most recent of10 resultswithin the time period is included. PHOSPHORUS 2.2(L) 2.7 - 4.5 mg/dL [facility] Blood 07/11/2024 5:48 AM EDT 07/11/2024 6:07 AM EDT Joann Kenyon Michael BUSINESS BANKING RELATIONSHIP MANAGER LAB BLOOD ORDER LEDY Performing Organization Address City/[facility]/ZIP Co de Phone Number [address] [address] * Magnesium (07/11/2024 5:48 AM EDT) Only the most recent of9 resultswithin the time period is included. MAGNESIUM 1.8 1.6 - 2.6 mg/dL [facility] Blood 07/11/2024 5:48 AM EDT 07/11/2024 6:07 AM EDT Joann Kenyon Michael BUSINESS BANKING RELATIONSHIP MANAGER LAB BLOOD ORDER LEDY Performing Organization Address [facility] Co de Phone Number [address] [address] * CT ABDOMEN/PELVIS WITH CONTRAST (07/10/2024 1:09 [...] period is included. C.DIFFICILE PCR Positive(A) Negative [facility] Comment:C.difficile gene was detected. C.difficile toxin assay [...] AL ORDERABLES [facility] [address] [place] [address] * (ABNORMAL) Clostridioides (Clostridium) difficile Antigen/Toxin Assay [...] - GENER AL ORDERABLES Performing Organization Address [facility] Co de Phone Number [address] [address] * COVID Pandemic Respiratory Viral Order (PRO) (07/10/2024 8:23 AM EDT) Test Ordered COVID, Flu has been ordered [...] MD BODY FLUIDS AND STOO LS ORDERABLES Performing Organization Address [facility] Co de Phone Number [address] [address] * ECG 12-LEAD (07/10/2024 7:49 AM EDT) Only the most recent of2 resultswithin the time period is included. Ventricular Rate EKG/MIN 90 BPM [facility] Atrial Rate 90 BPM [facility] NE Interval 178 ms [facility] QRS Duration 96 ms [facility] QT Interval 378 ms [facility] QTC Interval 462 ms [facility] P [place] 15 degrees [facility] R Wave [place] -18 degrees [facility] T Wave [place] 6 degrees [facility] 07/10/2024 7:49 AM EDT [...] Singh MD ECG ORDERABLES Performing Organization Address City/[facility]/ZIP Co de Phone Number [facility] * Blood Culture, Routine (07/10/2024 7:16 AM EDT) Only the most recent of2 resultswithin the time period is included. Pathologist [facility] Special Requests None 07/10/2024 7:17 AM EDT [facility] BLOOD CULTURE NO GROWTH 5 DAYS 07/15/2024 7:45 AM EDT [facility] Blood (Blood) 07/10/2024 7:1 6 AM EDT 07/10/2024 7:33 AM EDT Comment:BLOOD Ismael Singh MD MICROBIOLOGY - GENER AL ORDERABLES Performing Organization Address City/[facility] Co de Phone Number [address] [address] * (ABNORMAL) LFTs (hepatic panel) (07/10/2024 7:16 [...] EDT Ismael Singh MD LAB BLOOD ORDERABLES Performing Organization Address [facility] de Phone Number [address] [address] * (ABNORMAL) Lipase (07/10/2024 7:16 AM EDT) Only the most recent of2 resultswithin the time period is included. LIPASE 7(L) 16 - 63 U/L [facility] Blood 07/10/2024 7:16 AM EDT 07/10/2024 7:35 AM EDT Ismael Singh MD LAB BLOOD ORDERABLES Performing Organization Address [facility] Co de Phone Number [address] [address] * Lactate (07/10/2024 7:16 AM EDT) LACTATE 0.79 0.50 - 2.20 mmol/L [facility] Blood 07/10/2024 7:16 AM EDT 07/10/2024 7:35 AM EDT Ismael Singh MD LAB BLOOD ORDERABLES Performing Organization Address [facility] de Phone Number [address] [address] * CT ABDOMEN/PELVIS WITH CONTRAST (05/09/2024 2:49 [...] * Stool culture (05/07/2024 9:57 PM EST) Pathologist [facility] Special Requests None 05/07/2024 9:57 PM EST [facility] Stool Culture NO SALMONELLA, SHIGELLA OR CAMPYLOBACTER ISOLATED 05/11/2024 7:55 AM EST [facility] Stool (Stool) 05/07/2024 9:5 7 PM EST 05/07/2024 10:46 PM EST Marco Antonio Brooks DO MICROBIOLOGY - GENER AL ORDERABLES Performing Organization Address City/[facility]/ZIP Co de Phone Number [address] [address] * (ABNORMAL) PT-INR (05/07/2024 5:16 PM EST) [facility] [address] PT 14.3(H) 10.2 - 12.9 sec [facility] INR 1.3(H) 0.9 - 1.1 [facility] Comment:Therapeutic range fo r oral Vitamin K antagonists: 2.0-3.5 Blood 05/07/2024 5:16 PM EST 05/07/2024 5:20 PM EST Ton Fischer MD LAB BLOOD ORDERABLE S Performing Organization Address City/[facility]/ZIP Co de Phone Number [address] [address] * (ABNORMAL) Urinalysis w/reflex Urine Culture (05/07/2024 4:55 PM EST) Pathologist [facility] COLOR Yellow Yellow [facility] [...] Fischer MD URINE ORDERABLES Performing Organization Address [facility] Co de Phone Number [address] [address] * (ABNORMAL) Urine Culture (05/07/2024 4:55 PM EST) Special Requests None Reflexed from [id number] 05/07/2024 6:46 PM EST [facility] - GENE RAL ORDERABLES Performing Organization Address [facility] Co de Phone Number [address] [address] * (ABNORMAL) Urine sediment (05/07/2024 4:55 PM [...] PM EST Ton Fischer MD URINE ORDERABLES [address] [address] * XR Abdomen Series Supine with Decubitus/Erect [...] clinician's provided indication for this examination in [facility]: Outside Radiology Order; Lower abdominal pain// Diarrhea// [...] clinician's provided indication for this examination in [facility]:Outside Radiology Order; Lower abdominal pain// Diarrhea// Bloating//Change [...] evidence of obstruction or pneumoperitoneum. Argelia Taylor BUSINESS BANKING RELATIONSHIP MANAGER IMG XR ABDOMEN * (ABNORMAL) Lipid panel [...] RISK RATIO 2.7(L) 3.3 - 4.4 [facility] Blood 01/02/2024 2:12 PM EDT 01/02/2024 2:18 PM EDT Keren Poon [facility] LAB BLOOD OR DERABLES [facility] [address] [place] [address] * Hepatitis C antibody, qualitative (01/05/2022 1:56 PM EDT) HCV NON-REACTIV E NON-REACTI VE [facility] Blood 01/05/2022 1:56 PM EDT 01/05/2022 1:58 PM EDT Marleny CONNOLLY LAB BLOOD ORDERA BLES [address] [address] * BI MAMMOGRAM SCREENING WITH TOMOSYNTHESIS WITH CAD (BILATERAL) (07/27/2021 2:37 PM EDT) Anatomical Region Laterality Modality Breast Left, Breast Right, Breast Bilateral Bila teral Mammography 07/27/2021 2:3 1 PM EDT Impressions 07/27/2021 2:35 PM EDT [...] Months Recommendation: Left Mammography Screening Ita Rodriguez INTERNET MARKETING ASSISTANT IMG MG EXAMS * BD DXA AXIAL [...] bone mineral density was calculated at 0.643 gm/fa4cvra a T- score of -1.9 falling within [...] Date Last Indicated C. diff 07/10/2024 07/10/2024 Blanquita, Opal Personal/Family Self [address] [address] Luisky, Opal Personal/Family Self [address] [address] Tomtoritoky, Opal Personal/Family Self [address] [address] Tomnasra, Opal Personal/Family Self [address] [address] Tomtoritoky, Opal Personal/Family Self [address] [address] Tominsky, Opal Personal/Family Self [address] [address] Tomtoritoky, Opal Personal/Family Self [address] [address] Tominsky, Opal Personal/Family Self 1955 [address] [facility] [address] [place] [address] Opal Juares Personal/Family Self 1955 [address] [facility] [address] [place] [address] Advance Directives For more information, please contact: [phone] (9AM - 5PM [facility], Saturday-Saturday) Documents on File Type Date Recorded Patient Flight Operations Specialist Expl anation MOLST 08/22/2020 4:20 PM Healthcare [...] Agent (Proxy form on file) Care Teams Social Sciences Instructor Relationship Specialty Start Date End Date Keren Poon CNP [address] [place] [address], 2nd [place] [address] [email or web address] PCP - General Family Medicine 01/31/23 Cash Fernandes MD [address] [place] [address] [email or web address] Gastroenterology 08/23/20 Willi Wells MD [address]_[place] [address] Rheumatology 02/04/24 Jose Thakur MD [address] [place] [address] [email or web address] Automobile Repossessor Pulmonary Disease 03/17/24 Dana Rucker FNP [address] [place] [address], 2nd [place] [address] [email or web address] Nurse Practitioner Infectious Diseases 05/21/24 Jonathan Alvarez MD [address] [place] [address], [address] [place] [address] [email or web address] Urology 05/14/23 Anival Borja MD [address] [place] [address], [address] [place] [address] [email or web address] Neurologist Neurology 01/04/23 Lyndsay Reynoso FNP [address] [place] [address] [place] [address] [email or web address] Nurse Practitioner Pain Medicine 05/27/22 Gutierrez Pittman MD [address] [place] [address] Sas Clinical Programmer Cardiology 05/27/24 Additional Source Comments The information contained in this document represents components of the legal health record. It is not the complete legal health record.[facility]
--- OUTSIDE RECORDS SUMMARY | 2024-07-28 13:46 | XMS_ITS | Encounter Summary ---
Author Organization [facility] Address [address] [place] [address] Care Team Providers Care Photo Finish Photographer Name Role Phone Charly Saxena Primary Care Provider [phone] Cheryl Calderon MD Primary Care Provider [phone] Encounter Details Date Type Department Care Team (Late st Contact Info) Description 04/18/2017 Orders Only [facility] Rheumatology [address] [place] [address] Abel Fierro MD [address] [place] [address] Social History Tobacco Use Types Packs/Day Years [...] 5:02 PM EST Narrative Resulting Agency Comment [id number] us Abel Fierro MD LABORATORY Final Result [facility] [address] [place] [address] * ERYTHROCYTE SEDIMENTATION RATE (ESR), JOSEERGREN (04/18/2017 12:15 PM EST) Sedimentation Rate [place] (ESR) 9 < OR = 30 mm/h [facility] 04/18/2017 12:1 5 PM EST 04/18/2017 5:02 PM EST Narrative Resulting Agency Comment [id number] us Abel Fierro MD LAB SAME DAY RESULT Final Resul t Performing Organization Address City/[facility]/ZIP Co de Phone Number [facility] [address] [place] [address] * CREATININE WITH GLOMERULAR FILTRATION RATE, ESTIMATED (EGFR) (04/18/2017 12:15 PM EST) Creatinine 0.88 0.50 - 0.99 mg/dL [facility] Comment: For patients >49 years of age, the reference limit for Creatinine is approximately 13% higher for people identified as -Tristanian. GFR 70 > OR = 60 mL/min/1. [...] needs for GFR calculation. Resulting Agency Comment [id number] us Abel Fierro MD LAB SAME DAY RESULT Final Resul t Performing Organization Address [facility] Co de Phone Number [facility] [address] [place] [address] * ALANINE AMINOTRANSFERASE (ALT), SERUM (04/18/2017 12:15 PM EST) ALT (SGPT) 19 6 - 29 U/L [facility] 04/18/2017 12:1 5 PM EST 04/18/2017 5:02 PM EST Narrative Resulting Agency Comment [id number] us Abel Fierro MD LAB SAME DAY RESULT Final Resul t Performing Organization Address [facility] Co de Phone Number [facility] [address] [place] [address] * ASPARTATE AMINOTRANSFERASE (AST), SERUM (04/18/2017 12:15 PM EST) AST (SGOT) 19 10 - 35 U/L [facility] 04/18/2017 12:1 5 PM EST 04/18/2017 5:02 PM EST Narrative Resulting Agency Comment [id number] us Abel Fierro MD LAB SAME DAY RESULT Final Resul t Performing Organization Address [facility] de Phone Number [facility] [address] [place] [address] * CBC INCLUDES DIFFERENTIAL AND PLATELET COUNT [...] 5:02 PM EST Narrative Resulting Agency Comment [id number] us Abel Fierro MD LAB SAME DAY RESULT Final Resul t Performing Organization Address City/[facility] Co de Phone Number [facility] [address] [place] [address] documented in this encounter Visit Diagnoses Diagnosis Rheumatoid arthritis involving multiple sites with positive rheumatoid factor (HCC) documented in this encounter Care Teams Photo Finish Photographer Relationship Specialty Start Date End Date Charly Saxena [facility] [address] [place] [address] PCP - General Internal Medicine 05/25/13 07/16/[address] [facility] Adult Medicine [address] [place] [address] PCP - General Internal Medicine 07/17/17 documented as of this encounter
--- OUTSIDE RECORDS SUMMARY | 2024-07-28 13:46 | XMS_ITS | Encounter Summary ---
Author Organization [facility] Address [address] [place] [address] Care Team Providers Care Rail Express Clerk Name Role Phone Charly Saxena Primary Care Provider [phone] Cheryl Calderon MD Primary Care Provider [phone] Encounter Details Date Type Department Care Team (Late st Contact Info) Description 05/24/2016 Orders Only [facility] Rheumatology [address] [place] [address] Abel Fierro MD [address] [place] [address] Social History Tobacco Use Types Packs/Day Years [...] approximately 13% higher for people identified as -Syrian. GFR 66 > OR = 60 mL/min/1. [...] needs for GFR calculation. Resulting Agency Comment [id number] us Abel Fierro MD LAB SAME DAY RESULT Final Resul t [facility] [address] [place] [address] * ALANINE AMINOTRANSFERASE (ALT), SERUM (05/24/2016 10:20 AM EST) ALT (SGPT) 27 6 - 29 U/L [facility] 05/24/2016 10:2 0 AM EST 05/24/2016 5:04 PM EST Narrative Resulting Agency Comment [id number] us Abel Fierro MD LAB SAME DAY RESULT Final Resul t Performing Organization Address City/[facility]/ZIP Co de Phone Number [facility] [address] [place] [address] * ASPARTATE AMINOTRANSFERASE (AST), SERUM (05/24/2016 10:20 AM EST) AST (SGOT) 23 10 - 35 U/L [facility] 05/24/2016 10:2 0 AM EST 05/24/2016 5:04 PM EST Narrative Resulting Agency Comment [id number] us Abel Fierro MD LAB SAME DAY RESULT Final Resul t Performing Organization Address [facility] de Phone Number [facility] [address] [place] [address] * (ABNORMAL) CBC INCLUDES DIFFERENTIAL AND PLATELET [...] 5:04 PM EST Narrative Resulting Agency Comment [id number] us Abel Fierro MD LAB SAME DAY RESULT Final Resul t Performing Organization Address City/State/[facility] Co de Phone Number [facility] [address] [place] [address] documented in this encounter Visit Diagnoses Diagnosis Rheumatoid arthritis involving multiple sites with positive rheumatoid factor (HCC) [M05.79] documented in this encounter Care Teams Rail Express Clerk Relationship Specialty Start Date End Date Charly Saxena [facility] [address] [place] [address] PCP - General Internal Medicine 05/25/13 07/16/17 Cheryl Calderon MD [facility] Adult Medicine [address] [place] [address] PCP - General Internal Medicine 07/17/17 documented as of this encounter
--- OUTSIDE RECORDS SUMMARY | 2024-07-28 13:46 | XMS_ITS | Encounter Summary ---
Author Organization [facility] Address [address] [place] [address] Care Team Providers Care Solidworks Drafter Name Role Phone Alberto Pacheco Primary Care Provider [phone] Charly Saxena Primary Care Provider [phone] Cheryl Calderon MD Primary Care Provider [phone] Encounter Details Date Type Department Care Team (Late st Contact Info) Description 01/18/2009 Orders Only [facility] Rheumatology [address] [place] [address] Abel Fierro MD [address] [place] [address] Social History Tobacco Use Types Packs/Day Years [...] RATE, ESTIMATED (EGFR) Routine 01/18/2009 Rheumatoid Arthritis ([facility]) Encounter for Long-Term (Current) Use of Other Medications SED RATE ESR Routine 01/18/2009 Rheumatoid Arthritis ([facility]) Encounter for Long-Term (Current) Use of Other Medications CBC 5 PART DIFF Routine 01/18/2009 Rheumatoid Arthritis ([facility]) Encounter for Long-Term (Current) Use of Other Medications ALANINE AMINOTRANSFERASE (ALT), SERUM Routine 01/18/2009 Rheumatoid Arthritis ([facility]) Encounter for Long-Term (Current) Use of Other Medications ASPARTATE AMINOTRANSFERASE (AST), SERUM Routine 01/18/2009 Rheumatoid Arthritis ([facility]) Encounter for Long-Term (Current) Use of Other Medications ALBUMIN Routine 01/18/2009 Rheumatoid Arthritis ([facility]) Encounter for Long-Term (Current) Use of Other Medications documented in this encounter Results * Due to [place] state law, this organization might not be sharing negative HIV tests. * C-REACTIVE PROTEIN (CRP), QUANTITATIVE, SERUM INFLAMMATION (01/18/2009) C REACTIVE PROTEIN (CRP) 0.6 0 - 0.7 MG/DL [facility] 01/18/2009 01/18/2009 8:1 8 PM EDT us Abel Fierro MD LABORATORY Final Result Performing Organization Address City/[facility] Co de Phone Number [facility] [address] [place] [address] * SED RATE ESR (01/18/2009) ESR (ERYTHROCYTE SEDIMENTATION RATE) 5 0 - 30 MM/HR [facility] 01/18/2009 01/18/2009 8:1 8 PM EDT us Abel Fierro MD LAB SAME DAY RESULT Final Resul t Performing Organization Address City/[facility]/ZIP Co de Phone Number [facility] [address] [place] [address] * ALBUMIN (01/18/2009) ALBUMIN 3.8 3.5 - 4.9 G/DL [facility] 01/18/2009 01/18/2009 8:1 8 PM EDT us Abel Fierro MD LAB SAME DAY RESULT Final Resul t Performing Organization Address [facility] de Phone Number [facility] [address] [place] [address] * CREATININE WITH GLOMERULAR FILTRATION RATE, ESTIMATED [...] Final Resul t Performing Organization Address [facility] de Phone Number [facility] [address] [place] [address] * ALANINE AMINOTRANSFERASE (ALT), SERUM (01/18/2009) ALT (SGPT) 20 6 - 40 U/L [facility] 01/18/2009 01/18/2009 8:1 8 PM EDT us Abel Fierro MD LAB SAME DAY RESULT Final Resul t Performing Organization Address [facility] Co de Phone Number [facility] [address] [place] [address] * ASPARTATE AMINOTRANSFERASE (AST), SERUM (01/18/2009) AST (SGOT) 19 10 - 35 U/L [facility] 01/18/2009 01/18/2009 8:1 8 PM EDT us Abel Fierro MD LAB SAME DAY RESULT Final Resul t [facility] [address] [place] [address] * (ABNORMAL) CBC 5 PART DIFF (01/18/2009) [...] RESULT Final Resul t [facility] [address] [place] [address] documented in this encounter Visit Diagnoses Diagnosis Rheumatoid arthritis(714.0) Rheumatoid arthritis Encounter for long-term (current) use of other medications documented in this encounter Care Teams Solidworks Drafter Relationship Specialty Start Date End Date Alberto Pacheco [address] [place] [address] PCP - General 07/19/08 05/24/13 Charly Saxena [facility] [place] [address] PCP - General Internal Medicine 05/25/13 07/16/17 Cheryl Calderon MD [facility] Adult Medicine [address] [place] [address] PCP - General Internal Medicine 07/17/17 documented as of this encounter
--- OUTSIDE RECORDS SUMMARY | 2024-07-28 13:46 | XMS_ITS | Encounter Summary ---
Author Organization [facility] Address [address] [place] [address] Phone Care Team Providers Care Front Desk Receptionist Name Role Phone JessicaMattie oliveirasheryl Mccrackengh [facility] Primary Care Provider Cash Fernandes MD Unavailable [phone] Seven Menchaca MD Unavailable Chavo Jack MD Primary Care Provider Keren Poon [facility] Primary Care Provid er Chavo Jack MD Unavailable Willi Wells MD Unavailable Jose Thakur MD Unavailable Dana Rucker STRETCHER DRIER OPERATOR Unavailable Jonathan Alvarez MD Unavailable [phone] Anival Borja MD Unavailable [phone] Lyndsay Reynoso STRETCHER DRIER OPERATOR Unavailable [phone] Gutierrez Pittman MD Unavailable [phone] Encounter Details Date Type Department Care Team (Late st Contact Info) Description 07/14/2021 Ancillary Orders [facility],Outside Imaging [address] [place], [place] [id number] System, Provider Not In, [facility] [address] [address] Social History Tobacco Use Types Packs/Day Years [...] high school, GED, job training, learning the Cypriot language, technical skills, or developing parenting skills)? [...] st Contact Info) Description 06/06/2024 Procedure Pass [address] [address] 07/30/2024 3:30 PM EDT Office Visit [facility] [address] [place] [address] [place] [address] Keren Poon, ORI [address] [facility], 2nd [place] [address] [email or web address] 08/04/2024 2:30 AM EDT Home Care Visit [facility] [address] [place] [phone] Orlando Mckeon RN [address] [place] [address] [email or web address] 08/11/2024 2:00 AM EDT Home Care Visit [facility] [address] [place] [phone] Orlando Mckeon RN [address] [place] [phone] [email or web address] 08/18/2024 1:30 AM EDT Home Care Visit [facility] [address] [place] [phone] Orlando Mckeon RN [address] [place] [phone] [email or web address] 08/25/2024 1:00 AM EDT Home Care Visit [facility] [address] [place] [phone] Orlando Mckeon RN [address] [place] [address] [email or web address] 09/01/2024 12:30 AM EDT [facility] [address] [place] [phone] Orlando Mckeon RN [address] [place] [address] 09/18/2024 2:30 PM EDT Office Visit [facility] Infectious Diseases [address] [place] [address] Dana Rucker FNP [address] [address] 11/26/2024 3:30 PM EDT Office Visit [address] [place] [address] Keren Poon, ORI [address] [place] [address] 12/11/2024 2:00 PM EDT Appointment [facility] [address] [place] [address] Keren Poon, ORI [address] [place] [address] 01/07/2025 2:30 PM EDT Office Visit [facility] [address] [place] [address] Jose Thakur MD [address] [place] [address] 06/03/2025 2:00 PM EST Office Visit [address] [place] [address] Keren Poon, ORI [address] [place] [address] documented as of this encounter Results * [...] as of this encounter Care Teams Front Desk Receptionist Relationship Specialty Start Date End Date Ita Pineda CNP [address] [place] [address] PCP - General Internal Medicine 08/19/20 09/17/22 Chavo Jack MD [address] [place] [address] PCP - General Internal Medicine 09/18/22 01/30/23 Keren Poon CNP [address] [place] [address], 2[address] [place] [address] PCP - General Family Medicine 01/31/23 Cash Fernandes MD [address] [place] [address] [email or web address] Gastroenterology 08/23/20 Seven Menchaca MD [address] [place] [address] [email or web address] Insurance Assigned Provider 08/04/22 08/03/23 Chavo Jack MD [address] [place] [address] [email or web address] Insurance Assigned Provider 08/03/23 05/04/24 Willi Wells MD [address] [facility] [address] [place] [address] Rheumatology 02/04/24 Jose Thakur MD [address] [place] [address] [email or web address] Storekeeper Steward Pulmonary Disease 03/17/24 Dana Rucker FNP 15 [facility], 2nd [place] [address] [email or web address] Nurse Practitioner Infectious Diseases 05/21/24 Jonathan Alvarez MD [address] [place] [address], [address] [place] [address] [email or web address] Urology 05/14/23 Anival Borja MD [address] [place] [address], [address] [place] [address] Neurologist Neurology 01/04/23 Lyndsay Reynoso FNP 10 [facility] [address] [place] [phone] [email or web address] Nurse Practitioner Pain Medicine 05/27/22 Gutierrez Pittman MD [address] [place] [phone] Joint Cutter Machine Cardiology 05/27/24 documented as of this encounter Additional Source Comments The information contained in this document represents components of the legal health record. It is not the complete legal health record.[facility]
--- OUTSIDE RECORDS SUMMARY | 2024-07-28 13:46 | XMS_ITS | Encounter Summary ---
Author Organization [facility] Address [address] [place] [address] Care Team Providers Care Entry Rep Name Role Phone Charly Saxena Primary Care Provider [phone] Cheryl Calderon MD Primary Care Provider [phone] Encounter Details Date Type Department Care Team (Late st Contact Info) Description 02/14/2017 Orders Only [facility] Rheumatology [address] [place] [address] Abel Fierro MD [address] [place] [address] Social History Tobacco Use Types Packs/Day Years [...] 9:13 PM EDT Narrative Resulting Agency Comment [id number] us Abel Fierro MD LAB SAME DAY RESULT Final Resul t Performing Organization Address [facility] Co de Phone Number [facility] [address] [place] [address] * ASPARTATE AMINOTRANSFERASE (AST), SERUM (02/14/2017 2:31 PM EDT) AST (SGOT) 27 10 - 35 U/L [facility] 02/14/2017 2:31 PM EDT 02/14/2017 9:13 PM EDT Narrative Resulting Agency Comment [id number] Abel Fierro MD LAB SAME DAY RESULT Final Resul t Performing Organization Address [facility] de Phone Number [facility] [address] [place] [address] * CREATININE WITH GLOMERULAR FILTRATION RATE, ESTIMATED (EGFR) (02/14/2017 2:31 PM EDT) Creatinine 0.80 0.50 - 0.99 mg/dL [facility] Comment: For patients >49 years of age, the reference limit for Creatinine is approximately 13% higher for people identified as -Sri Lankan. GFR 79 > OR = 60 mL/min/1. [...] needs for GFR calculation. Resulting Agency Comment [id number] us Abel Fierro MD LAB SAME DAY RESULT Final Resul t [facility] [address] [place] [address] * (ABNORMAL) CBC INCLUDES DIFFERENTIAL AND PLATELET [...] 9:13 PM EDT Narrative Resulting Agency Comment [id number] us Abel Fierro MD LAB SAME DAY RESULT Final Resul t [facility] [address] [place] [address] documented in this encounter Visit Diagnoses Diagnosis Rheumatoid arthritis involving multiple sites with positive rheumatoid factor (HCC) documented in this encounter Care Teams Entry Rep Relationship Specialty Start Date End Date Charly Saxena [facility] [address] [place] [address] PCP - General Internal Medicine 05/25/13 07/16/17 Cheryl Calderon MD [facility] Adult Medicine [address] [place] [address] PCP - General Internal Medicine 07/17/17 documented as of this encounter
--- OUTSIDE RECORDS SUMMARY | 2024-07-28 13:46 | XMS_ITS | Encounter Summary ---
Author Organization [facility] Address [address] [place] [address] Care Team Providers Care Oxidized Finish Plater Name Role Phone Alberto Pacheco Primary Care Provider [phone] Unknown Pcp, Non Rmg Primary Care Provider Unava ilCharly Antoine Primary Care Provider [phone] Charly Saxena Primary Care Provider [phone] Cheryl Calderon MD Primary Care Provider [phone] Encounter Details Date Type Department Care Team (Late st Contact Info) Description 11/15/2006 Orders Only [facility] Rheumatology [address] [place] [address] Abel Fierro MD [address] [place] [address] Social History Tobacco Use Types Packs/Day Years [...] arthritis documented in this encounter Care Teams Oxidized Finish Plater Relationship Specialty Start Date End Date Alberto Pacheco [address] [place] [address] PCP - General 07/19/08 05/24/13 Unknown Pcp, Non Rmg PCP - General 06/30/08 07/18/08 Charly Saxena [facility] [address] [place] [address] PCP - General 01/18/06 06/29/08 Charly Saxena [facility] [address] [place] [address] PCP - General Internal Medicine 05/25/13 07/16/17 Cheryl Calderon MD [facility] Adult Medicine [address] [place] [address] PCP - General Internal Medicine 07/17/17 documented as of this encounter
--- OUTSIDE RECORDS SUMMARY | 2024-07-28 13:46 | XMS_ITS | Encounter Summary ---
Author Organization [facility] Address [address] [place] [address] Phone Care Team Providers Care Sales Supervisor Name Role Phone JessicaMattie oliveirasheryl Mccrackengh [facility] Primary Care Provider Cash Fernandes MD Unavailable [phone] Seven Menchaca MD Unavailable Chavo Jack MD Primary Care Provider [phone] Keren Poon [facility] Primary Care Provid er Chavo Jack MD Unavailable Willi Wells MD Unavailable Jose Thakur MD Unavailable [phone] Dana Rucker MEDICAL OFFICER PSYCHIATRY Unavailable Jonathan Alvarez MD Unavailable [phone] Anival Borja MD Unavailable [phone] Lyndsay Reynoso MEDICAL OFFICER PSYCHIATRY Unavailable [phone] Gutierrez Pittman MD Unavailable [phone] Encounter Details Date Type Department Care Team (Late st Contact Info) Description 07/10/2021 Procedure Pass [facility], [facility] [address] [place] [address] Social History Tobacco Use Types Packs/Day Years [...] high school, GED, job training, learning the Hungarian language, technical skills, or developing parenting skills)? [...] st Contact Info) Description 06/06/2024 Procedure Pass [facility], [facility] [address] [place] [address] 07/30/2024 3:30 PM EDT Office Visit [facility] [address] [place] [address] [place] [address] Keren Poon, GROUP SALES COORDINATOR 170 [facility], 2nd [place] [address] 08/04/2024 2:30 AM EDT Home Care Visit [facility] [address] [place] [phone] Orlando Mckeon RN [address] [place] [address] 08/11/2024 2:00 AM EDT Home Care Visit [facility] [address] [place] [phone] Orlando Mckeon RN [address] [place] [address] 08/18/2024 1:30 AM EDT Home Care Visit [facility] [address] [place] [phone] Orlando Mckeon RN [address] [place] [address] 08/25/2024 1:00 AM EDT [facility] [address] [place] [phone] Orlando Mckeon, RENZO [address] [place] [address] 09/01/2024 12:30 AM EDT Appointment [facility] [address] [place] [phone] Orlando Mckeon RN [address] [place] [address] 09/18/2024 2:30 PM EDT Office Visit [facility] Infectious Diseases [address] [place] [address] Dana Rucker, MEDICAL OFFICER PSYCHIATRY 15 [facility], [address] [place] [address] 11/26/2024 3:30 PM EDT Office Visit [address] [place] [address] Keren Poon, ORI [address] [place] [address] 12/11/2024 2:00 PM EDT Appointment [facility] [address] [place] [address] Keren Poon, ORI [address] [address] 01/07/2025 2:30 PM EDT Office Visit [facility] [address] [place] [address] Jose Thakur MD [address] [place] [address] 06/03/2025 2:00 PM EST Office Visit [address] [place] [phone] Keren Poon, ORI [address] [place] [address] documented as of this encounter Visit Diagnoses [...] documented as of this encounter Care Teams Sales Supervisor Relationship Specialty Start Date End Date Ita Pineda CNP [address] [place] [address] PCP - General Internal Medicine 08/19/20 09/17/22 Chavo Jack MD [address] [place] [address] PCP - General Internal Medicine 09/18/22 01/30/23 Keren Poon CNP [address] [place] [address], 2nd [place] [address] [email or web address] PCP - General Family Medicine 01/31/23 Cash Fernandes MD [address] [place] [address] [email or web address] Gastroenterology 08/23/20 Seven Menchaca MD [address] [place] [address] [email or web address] Insurance Assigned Provider 08/04/22 08/03/23 Chavo Jack MD [address] [place] [address] [email or web address] Insurance Assigned Provider 08/03/23 05/04/24 Willi Wells MD [address] [place], [place] [address] [address] Rheumatology 02/04/24 Jose Thakur MD [address] [place] [address] [email or web address] Magisterial District Judge Pulmonary Disease 03/17/24 Dana Rucker FNP [address] [place] [address], 2nd [place] [address] [email or web address] Nurse Practitioner Infectious Diseases 05/21/24 Jonathan Alvarez MD [address] [place] [address], [address] [address] [email or web address] Urology 05/14/23 Anival Borja MD [address] [place] [address], [address] [place] [address] [email or web address] Neurologist Neurology 01/04/23 Lyndsay Reynoso FNP [address] [place] [address] [email or web address] Nurse Practitioner Pain Medicine 05/27/22 Gutierrez Pittman MD [address] [place] [address] Timber Harvester Operator Cardiology 05/27/24 documented as of this encounter Additional Source Comments The information contained in this document represents components of the legal health record. It is not the complete legal health record.[facility]
--- OUTSIDE RECORDS SUMMARY | 2024-07-28 13:46 | XMS_ITS | Encounter Summary ---
Author Organization [facility] Address [address] [place] [address] Phone Care Team Providers Care Physical Medicine Teacher Name Role Phone Cash Fernandes MD Unavailable [phone] Keren Poon [facility] Primary Care Provid er Willi Wells MD Unavailable Jose Thakur MD Unavailable Dana Rucker PACKAGE DELIVERY ROOM SERVICE RUNNER Unavailable [phone] Jonathan Alvarez MD Unavailable [phone] Anival Borja MD Unavailable Lyndsay Reynoso PACKAGE DELIVERY ROOM SERVICE RUNNER Unavailable [phone] Gutierrez Pittman MD Unavailable [phone] Reason for Visit * Reason Comments Follow-up C.diff Encounter Details Date Type Department Care Team (Late st Contact Info) Description 07/24/2024 2:30 PM EDT Office Visit [facility] Infectious Diseases [address] [place] [address] Dana Rucker, DIVYA 15 [facility], 2nd [place] [address] C. difficile colitis (Primary Dx) Social History [...] two required: Pass Recurrent or relapsing CDI ([place] which) a. At least three episodes of dhml-oi-zbaonbza CDI. b. At least two episodes of [...] HPI Medications: Current Outpatient Medications Ordered in [facility] Medication Sig alendronate (FOSAMAX) 70 MG tablet TAKE ONE TABLET BY MOUTH EVERY WEEK azelastine-fluticasone (DYMISTA) 137-50 mcg/spray [place] 1 spray by Each Nare route 2 [...] She is unable to enroll in the [facility] fecal transplant program due to use of methotrexate and rituximab. We will pursue prescribing VOWST for fecal transplant. Discussed benefits vs risk with pt and Faustino. Filled out the [employer] enrollment paperwork and faxed along with hospital notes and most recent labs. Follow-up will be dependent upon when pt receives the medication. I personally spent 30 minutes today preparing for the patient, caring for the patient dhou-jj-ryeh,caring for the patient after the visit, and [...] She is unable to enroll in the [facility] fecal transplant program due to use of methotrexate and rituximab. We will pursue prescribing VOWST for fecal transplant. Discussed benefits vs risk with pt and Faustino. Filled out the [employer] enrollment paperwork and faxed along with hospital notes and most recent labs. Follow-up will be dependent upon when pt receives the medication. documented in this encounter Plan of Treatment Upcoming Encounters Date Type Department Care Team (Late st Contact Info) Description 06/06/2024 Procedure Pass [facility], [facility] [address] [place] [address] 07/30/2024 3:30 PM EDT Office Visit [facility] [address] [place] [address] [place] [address] Keren Poon, CORK MIXER 170 [facility], 2nd [place] [address] 08/04/2024 2:30 AM EDT Home Care Visit [facility] [address] [place] [phone] Orlando Mckeon RN [address] [place] [address] [email or web address] 08/11/2024 2:00 AM EDT Home Care Visit [facility] [address] [place] [phone] Orlando Mckeon RN [address] [place] [address] [email or web address] 08/18/2024 1:30 AM EDT Home Care Visit [facility] [address] [place] [phone] Orlando Mckeon RN [address] [place] [address] 08/25/2024 1:00 AM EDT Home Care Visit [facility] [address] [place] [phone] Orlando Mckeon RN [address] [place] [address] [email or web address] 09/01/2024 12:30 AM EDT Appointment [facility] [address] [place] [phone] Orlando Mckeon, RENZO [address] [place] [address] [email or web address] 09/18/2024 2:30 PM EDT Office Visit [facility] Infectious Diseases [address] [place] [address] Dana Rucker, DIVYA 15 [facility], [address] [place] [address] 11/26/2024 3:30 PM EDT Office Visit [address] [place] [address] Keren Poon CNP [address] [place] [address] 12/11/2024 2:00 PM EDT Appointment [address] [address] Keren Poon CNP [address] [place] [address] 01/07/2025 2:30 PM EDT Office Visit [facility] [address] [place] [address] Jose Thakur MD 30 [place] [address] 06/03/2025 2:00 PM EST Office Visit [address] [place] [address] Keren Poon CNP [address] [place] [address] documented as of this encounter Visit Diagnoses Diagnosis C. difficile colitis- Primary documented in this encounter Additional Health Concerns Infection Onset Date Last Indicated Resolved Time C. diff 07/10/2024 07/10/2024 Assessment Noted Time PHQ-9 Depression Total Score: 5 05/09/19 24 6:55 AM EST PHQ-2 Depression Total Score: 2 05/27/19 25 1:55 PM EST documented as of this encounter Care Teams Physical Medicine Teacher Relationship Specialty Start Date End Date Keren Poon CNP [address] [place] [address], 2nd [place] [address] [email or web address] PCP - General Family Medicine 01/31/23 Cash Fernandes MD 10 [place] [address] Gastroenterology 08/23/20 Willi Wells MD 10 [facility] 304_[place] [address] Rheumatology 02/04/24 Jose Thakur MD 30 [place] [address] Career Services Director Pulmonary Disease 03/17/24 Dana Rucker FNP 15 [facility], 2nd [place] [address] [email or web address] Nurse Practitioner Infectious Diseases 05/21/24 Jonathan Alvarez MD [address] [place] [address], [address] [place] [address] Urology 05/14/23 Anival Borja MD [address] [place] [address], [address] [place] [address] Neurologist Neurology 01/04/23 Lyndsay Reynoso FNP 10 [facility] [address] [place] [address] [email or web address] Nurse Practitioner Pain Medicine 05/27/22 Gutierrez Pittman MD [address] [place] [address] Benefits Processor Cardiology 05/27/24 documented as of this encounter Additional Source Comments The information contained in this document represents components of the legal health record. It is not the complete legal health record.[facility]
--- OUTSIDE RECORDS SUMMARY | 2024-07-28 13:46 | XMS_ITS | Encounter Summary ---
Author Organization [facility] Address [address] [place] [address] Care Team Providers Care Network Consultant Name Role Phone Cheryl Calderon MD Primary Care Provider [phone] Reason for Visit * Reason Comments E-prescribing Refill Request Encounter Details Date Type Department Care Team (Late st Contact Info) Description 02/01/2018 Refill [facility] Rheumatology [address] [place] [address] Able Fierro MD [address] [place] [address] E-prescribing Refill Request Social History Tobacco Use [...] on filedocumented in this encounter Care Teams Network Consultant Relationship Specialty Start Date End Date Cheryl Calderon MD [facility] [address] [place] [address] PCP - General Internal Medicine 07/17/17 documented as of this encounter
--- OUTSIDE RECORDS SUMMARY | 2024-07-28 13:46 | XMS_ITS | Encounter Summary ---
Author Organization [facility] Address [address] [place] [address] Care Team Providers Care Print Shop Stenographer Name Role Phone Charly Saxena Primary Care Provider [phone] Cheryl Calderon MD Primary Care Provider [phone] Encounter Details Date Type Department Care Team (Late st Contact Info) Description 10/15/2016 Orders [address] [facility] Rheumatology [address] [place] [address] Abel Fierro MD [address] [place] [address] Social History Tobacco Use Types Packs/Day Years [...] EDT) C reactive protein 0.19 <0.80 mg/dL [facility] Comment: Please be advised that patients taking Carboxypenicillins may exhibit falsely decreased C-Reactive Protein levels due to an analytical interference in this assay. 10/15/2016 12:3 9 PM EDT 10/15/2016 7:34 PM EDT Narrative Resulting Agency Comment [id number] us Abel Fierro MD LABORATORY Final Result [facility] [address] [place] [address] * ERYTHROCYTE SEDIMENTATION RATE (ESR), KUNAL (10/15/2016 12:39 PM EDT) Sedimentation Rate [place] (ESR) 11 < OR = 30 mm/h [facility] 10/15/2016 12:3 9 PM EDT 10/15/2016 7:34 PM EDT Narrative Resulting Agency Comment [id number] us Abel Fierro MD LAB SAME DAY RESULT Final Resul t Performing Organization Address [facility] de Phone Number [facility] [address] [place] [address] * CREATININE WITH GLOMERULAR FILTRATION RATE, ESTIMATED (EGFR) (10/15/2016 12:39 PM EDT) Creatinine 0.79 0.50 - 0.99 mg/dL [facility] Comment: For patients >49 years of age, the reference limit for Creatinine is approximately 13% higher for people identified as -Sudanese. GFR 81 > OR = 60 mL/min/1. [...] needs for GFR calculation. Resulting Agency Comment [id number] us Abel Fierro MD LAB SAME DAY RESULT Final Resul t Performing Organization Address [facility] Co de Phone Number [facility] [address] [place] [address] * ALANINE AMINOTRANSFERASE (ALT), SERUM (10/15/2016 12:39 PM EDT) ALT (SGPT) 27 6 - 29 U/L [facility] 10/15/2016 12:3 9 PM EDT 10/15/2016 7:34 PM EDT Narrative Resulting Agency Comment [id number] us Abel Fierro MD LAB SAME DAY RESULT Final Resul t Performing Organization Address [facility] Co de Phone Number [facility] [address] [place] [address] * ASPARTATE AMINOTRANSFERASE (AST), SERUM (10/15/2016 12:39 PM EDT) AST (SGOT) 25 10 - 35 U/L [facility] 10/15/2016 12:3 9 PM EDT 10/15/2016 7:34 PM EDT Narrative Resulting Agency Comment [id number] us Abel Fierro MD LAB SAME DAY RESULT Final Resul t Performing Organization Address [facility] de Phone Number [facility] [address] [place] [address] * (ABNORMAL) CBC INCLUDES DIFFERENTIAL AND PLATELET [...] 7:34 PM EDT Narrative Resulting Agency Comment [id number] us Abel Fierro MD LAB SAME DAY RESULT Final Resul t [facility] [address] [place] [address] documented in this encounter Visit Diagnoses Diagnosis Rheumatoid arthritis involving multiple sites with positive rheumatoid factor (HCC) [M05.79] documented in this encounter Care Teams Print Shop Stenographer Relationship Specialty Start Date End Date Charly Saxena [facility] [address] [place] [address] PCP - General Internal Medicine 05/25/13 07/16/17 Cheryl Calderon MD [facility] Medicine [address] [place] [address] PCP - General Internal Medicine 07/17/17 documented as of this encounter
--- OUTSIDE RECORDS SUMMARY | 2024-07-28 13:46 | XMS_ITS | Encounter Summary ---
Author Organization [facility] Address [address] [place] [address] Care Team Providers Care Reliability Technologist Name Role Phone Alberto Pacheco Primary Care Provider [phone] Unknown Pcp, Non Rmg Primary Care Provider Unava ilable Charly Saxena Primary Care Provider [phone] Charly Saxena Primary Care Provider Cheryl Calderon MD Primary Care Provider [phone] Encounter Details Date Type Department Care Team (Late st Contact Info) Description 02/04/[address] [facility] Rheumatology [address] [place] [address] Abel Fierro MD [address] [place] [address] Social History Tobacco Use Types Packs/Day Years [...] of this encounter Procedures * Due to [place] [employer] law, this organization might not be sharing negative HIV tests. Procedure Name Priority Date/Time Associated Diagnosis Comments CBC 5 PART DIFF Routine 02/04/2007 RHEUMATOID ARTHRITIS ASPARTATE AMINOTRANSFERASE (AST), SERUM Routine 02/04/2007 RHEUMATOID ARTHRITIS documented in this encounter Results * Due to [place] state law, this organization might not be sharing negative HIV tests. * ASPARTATE AMINOTRANSFERASE (AST), SERUM (02/04/2007) AST (SGOT) 16 10 - 35 U/L [facility] (CLIA# [id number]) 02/04/2007 02/04/2007 7:3 1 PM EDT us Abel Fierro MD LAB SAME DAY RESULT Final Resul t [facility] (CLIA# [id number]) [address] [place] [address] * (ABNORMAL) CBC 5 PART DIFF (02/04/2007) WHITE BLOOD COUNT 9.7 3.8 - 10.8 THOUS/UL [facility] (CLIA# [id number]) RBC 5.08 3.80 - 5.10 MIL/UL [facility] (CLIA# [id number]) Hemoglobin 15.4 11.7 - 15.5 G/DL [facility] (CLIA# [id number]) HCT (HEMATOCRIT) 45.3(H) 35.0 - 45.0 % [facility] (CLIA# [id number]) MCV 89.2 80.0 - 100.0 FL [facility] (CLIA# [id number]) MCH 30.4 27.0 - 33.0 PG [facility] (CLIA# [id number]) MCHC 34.1 32.0 - 36.0 G/DL [facility] (CLIA# [id number]) BAND % 0 0 - 5 % [facility] (CLIA# [id number]) NEUTROPHIL % 84(H) 48 - 75 % [facility] (CLIA# [id number]) LYMPHOCYTE % 10(L) 17 - 40 % [facility] (CLIA# [id number]) MONOCYTE % 6 0 - 14 % [facility] (CLIA# [id number]) EOSINOPHIL % 0 0 - 5 % [facility] (CLIA# [id number]) BASOPHIL % 0 0 - 3 % [facility] (CLIA# [id number]) ATYPICAL LYMPHOCYTE % 0 0 - 5 % [facility] (CLIA# [id number]) PLATELETS 392 140 - 400 THOUS/UL [facility] (CLIA# [id number]) BANDS # 0 0 - 750 CELLS/MCL [facility] (CLIA# [id number]) NEUTROPHILS # 8148(H) 1500 - 7800 CELLS/MCL [facility] (CLIA# [id number]) LYMPHOCYTES # 970 850 - 3900 CELLS/MCL [facility] (CLIA# [id number]) MONOCYTES # 582 200 - 950 CELLS/MCL [facility] (CLIA# [id number]) EOSINOPHILS # 0(L) 15 - 550 CELLS/MCL [facility] (CLIA# [id number]) BASOPHILS # 0 0 - 200 CELLS/MCL [facility] (CLIA# [id number]) ATYPICAL LYMPHOCYTES # 0 0 - 200 /UL [facility] (CLIA# [id number]) RDW 14.6 11.0 - 15.0 % [facility] (CLIA# [id number]) MPV 7.6 7.5 - 11.5 FL [facility] (CLIA# [id number]) 02/04/2007 02/04/2007 7:3 1 PM EDT us Abel Fierro MD LAB SAME DAY RESULT Final Resul t [facility] (CLIA# [id number]) [address] [place] [address] documented in this encounter Visit Diagnoses Diagnosis RHEUMATOID ARTHRITIS Rheumatoid arthritis documented in this encounter Care Teams Reliability Technologist Relationship Specialty Start Date End Date Alberto Pacheco [address] [place] [address] PCP - General 07/19/08 05/24/13 Unknown Pcp, Non Rmg PCP - General 06/30/08 07/18/08 Charly Saxena [facility] [address] [place] [address] PCP - General 01/18/06 06/29/08 Charly Saxena [facility] [address] [place] [address] PCP - General Internal Medicine 05/25/13 07/16/17 Cheryl Calderon MD [facility] Medicine [address] [place] [address] PCP - General Internal Medicine 07/17/17 documented as of this encounter
--- OUTSIDE RECORDS SUMMARY | 2024-07-28 13:46 | XMS_ITS | Encounter Summary ---
Author Organization [facility] Address [address] [place] [address] Phone Care Team Providers Care Latcher Name Role Phone Cash Fernandes MD Unavailable [phone] Seven Menchaca MD Unavailable Chavo Jack MD Primary Care Provider Keren Poon [facility] Primary Care Provid er Chavo Jack MD Unavailable Willi Wells MD Unavailable Jose Thakur MD Unavailable Dana Rucker REEL HOOKER Unavailable [phone] Jonathan Alvarez MD Unavailable [phone] Anival Borja MD Unavailable [phone] Lyndsay Reynoso REEL HOOKER Unavailable Gutierrez Pittman MD Unavailable [phone] Encounter Details Date Type Department Care Team (Late st Contact Info) Description 10/04/2022 Procedure Pass [facility], [address] [place] [address] Social History Tobacco Use Types Packs/Day Years [...] st Contact Info) Description 06/06/2024 Procedure Pass [facility], [facility] [address] [place] [address] 07/30/2024 3:30 PM EDT Office Visit [facility] Medical [facility] [address] [facility] [place] [address] Keren Poon, SALON LEADER [address] [facility], 2nd [place] [address] [email or web address] 08/04/2024 2:30 AM EDT Home Care Visit [facility] [address] [place] [phone] Orlando Mckeon RN [address] [place] [address] [email or web address] 08/11/2024 2:00 AM EDT Home Care Visit [facility] [address] [place] [phone] Orlando Mckeon RN [address] [place] [address] [email or web address] 08/18/2024 1:30 AM EDT Home Care Visit [facility] [address] [place] [address] Orlando Mckeon RN [address] [place] [address] [email or web address] 08/25/2024 1:00 AM EDT Home Care Visit [facility] [address] [place] [address] Orlando Mckeon RN [address] [place] [address] [email or web address] 09/01/2024 12:30 AM EDT [facility]ment [facility] [address] [place] [address] Orlando Mckeon, RENZO [address] [place] [address] 09/18/2024 2:30 PM EDT Office Visit [facility] Infectious Diseases [address] [place] [address] Dana Rucker, DIVYA 15 [facility], 2nd [place] [address] 11/26/2024 3:30 PM EDT Office Visit [address] [place] [address] Keren Poon, ORI [address] [place] [address] 12/11/2024 2:00 PM EDT Appointment [facility], [facility] [address] [place] [address] Keren Poon, ORI [address] [address] 01/07/2025 2:30 PM EDT Office Visit [facility] All[facility] Critical [facility] Medicine [address] [place] [address] Jose Thakur MD 30 [place] [address] 06/03/2025 2:00 PM EST Office Visit [address] [place] [address] Keren Poon, ORI [address] [address] [email or web address] documented as of this encounter Visit Diagnoses [...] documented as of this encounter Care Teams Latcher Relationship Specialty Start Date End Date Chavo Jack MD [address] [place] [address] [email or web address] PCP - General Internal Medicine 09/18/22 01/30/23 Keren Poon CNP [address] [place] [address], 2nd [place] [address] [email or web address] PCP - General Family Medicine 01/31/23 Cash Fernandes MD [address] [place] [address] Gastroenterology 08/23/20 Seven Menchaca MD [address] [place] [address] [email or web address] Insurance Assigned Provider 08/04/22 08/03/23 Chavo Jack MD [address] [place] [address] [email or web address] Insurance Assigned Provider 08/03/23 05/04/24 Willi Wells MD [address] Vin[address]_[place] [address] Rheumatology 02/04/24 Jose Thakur MD [address] [place] [address] [email or web address] Hvac Lead Pulmonary Disease 03/17/24 Dana Rucker FNP 15 [facility], 2nd [place] [address] [email or web address] Nurse Practitioner Infectious Diseases 05/21/24 Jonathan Alvarez MD [address] [place] [address], [address] [place] [address] [email or web address] Urology 05/14/23 Anival Borja MD [address] [place] [address], [address] [place] [address] [email or web address] Neurologist Neurology 01/04/23 Lyndsay Reynoso FNP [address] [place] [address] Drive [address] [place] [address] [email or web address] Nurse Practitioner Pain Medicine 05/27/22 Gutierrez Pittman MD [address] [place] [address] Bankruptcy Attorney Cardiology 05/27/24 documented as of this encounter Additional Source Comments The information contained in this document represents components of the legal health record. It is not the complete legal health record.[facility]
--- OUTSIDE RECORDS SUMMARY | 2024-07-28 13:46 | XMS_ITS | Encounter Summary ---
Author Organization [facility] Address [address] [facility] [address] [place] [address] Phone Care Team Providers Care Camp Dining Room Attendant Name Role Phone Cash Fernandes MD Unavailable [phone] Keren Poon MARBLE MACHINE TENDER Primary Care Provid er Willi Wells MD Unavailable Jose Thakur MD Unavailable Dana Rucker OPERATING ROOM NURSE Unavailable Jonathan Alvarez MD Unavailable [phone] Anival Borja MD Unavailable [phone] Lyndsay Reynoso OPERATING ROOM NURSE Unavailable Gutierrez Pittman MD Unavailable [phone] Reason for Visit * Reason Comments Medication Refill Encounter Details Date Type Department Care Team (Late st Contact Info) Description 07/23/2024 Refill [facility] [address] [place] [address] [address] [place] [phone] Keren Poon, MARBLE MACHINE TENDER [address] [place] [address], 2nd Floor [employer] [address] [email or web address] Medication Refill Social History Tobacco Use Types [...] 05/27/2024 Keren Poon CNP - Family Medicine [facility] > Requested f/u: Return in about 6 months (around 11/24/2024) for Next scheduled follow up. Upcoming visit: 07/30/2024 Keren Poon CNP - Family Medicine [facility] ACTIONS TAKEN BY Cesar Peres CMA [...] st Contact Info) Description 06/06/2024 Procedure Pass [facility] [address] [place] [address] 07/30/2024 3:30 PM EDT Office Visit [facility] [address] [place] [address] [place] [address] Keren Poon, MARBLE MACHINE TENDER [address] [facility], 2nd [place] [address] [email or web address] 08/04/2024 2:30 AM EDT Home Care Visit [facility] [address] [place] [phone] Orlando Mckeon RN [address] [place] [address] [email or web address] 08/11/2024 2:00 AM EDT Home Care Visit [facility] [address] [place] [phone] Orlando Mckeon RN [address] [place] [address] [email or web address] 08/18/2024 1:30 AM EDT [facility] [address] [place] [phone] Orlando Mckeon RN [address] [place] [address] [email or web address] 08/25/2024 1:00 AM EDT Home Care Visit [facility] [address] [place] [phone] Orlando Mckeon, RENZO [address] [place] [address] [email or web address] 09/01/2024 12:30 AM EDT Appointment [facility] [address] [place] [address] Orlando Mckeon RN [address] [place] [address] 09/18/2024 2:30 PM EDT Office Visit [facility] Infectious Diseases [address] [place] [address] Dana Rucker, DIVYA [address] [address] 11/26/2024 3:30 PM EDT Office Visit [address] [place] [address] Keren Poon, ORI [address] [place] [address] 12/11/2024 2:00 PM EDT Appointment [facility], [facility] 30 [place] [address] Keren Poon, ORI [address] [address] 01/07/2025 2:30 PM EDT Office Visit [facility] [address] [place] [address] Jose Thakur MD 30 [place] [address] 06/03/2025 2:00 PM EST Office Visit [address] [place] [address] Keren Poon, ORI [address] [place] [address] [email or web address] documented as of this encounter Visit Diagnoses Diagnosis Primary hypertension Unspecified essential hypertension documented in this encounter Additional Health Concerns Infection Onset Date Last Indicated Resolved Time C. diff 07/10/2024 07/10/2024 Assessment Noted Time PHQ-9 Depression Total Score: 5 05/09/19 6:55 AM EST PHQ-2 Depression Total Score: 2 05/27/19 1:55 PM EST documented as of this encounter Care Teams Camp Dining Room Attendant Relationship Specialty Start Date End Date Cleve Kerenrex Glaser, MARBLE MACHINE TENDER [address] [place] [address], 2nd [place] [address] PCP - General Family Medicine 01/31/23 Cash Fernandes MD 10 [place] [address] Gastroenterology 08/23/20 Willi Wells MD [address] [address] Rheumatology 02/04/24 Jose Thakur MD 30 [place] [address] Operations Intelligence Pulmonary Disease 03/17/24 Dana Rucker FNP 15 [facility], [address] [place] [address] Nurse Practitioner Infectious Diseases 05/21/24 Jonathan Alvarez MD [facility], [address] [place] [address] [email or web address] Urology 05/14/23 Anival Borja MD [address] [place] [address], [address] [place] [address] [email or web address] Neurologist Neurology 01/04/23 Lyndsay Reynoso FNP 10 [facility] [address] [place] [address] [email or web address] Nurse Practitioner Pain Medicine 05/27/22 Gutierrez Pittman MD [address] [place] [address] Him Coder Cardiology 05/27/24 documented as of this encounter Additional Source Comments The information contained in this document represents components of the legal health record. It is not the complete legal health record.[facility]
--- OUTSIDE RECORDS SUMMARY | 2024-07-28 13:46 | XMS_ITS | Encounter Summary ---
Author Organization [facility] Address [address] [place] [address] Phone Care Team Providers Care Bore Miner Operator Name Role Phone JessicaMattie oliveirasheryl Mccrackengh [facility] Primary Care Provider Cash Fernandes MD Unavailable [phone] Seven Menchaca MD Unavailable Chavo Jack MD Primary Care Provider Keren Poon [facility] Primary Care Provid er Chavo Jack MD Unavailable Willi Wells MD Unavailable Jose Thakur MD Unavailable [phone] Dana Rucker SPECIAL EDUCATION RESOURCE ROOM TEACHER Unavailable [phone] Jonathan Alvarez MD Unavailable [phone] Anival Borja MD Unavailable [phone] Lyndsay Reynoso SPECIAL EDUCATION RESOURCE ROOM TEACHER Unavailable [phone] Gutierrez Pittamn MD Unavailable [phone] Encounter Details Date Type Department Care Team (Late st Contact Info) Description 04/10/2021 Procedure Pass [facility] Admitting Dept Virtual Department [address] [place] [address] Social History Tobacco Use Types Packs/Day Years [...] high school, GED, job training, learning the Danish language, technical skills, or developing parenting skills)? [...] st Contact Info) Description 06/06/2024 Procedure Pass [facility], [facility] [address] [place] [address] 07/30/2024 3:30 PM EDT Office Visit [facility] [address] [facility] [place] [address] Keren Poon, EXECUTIVE KITCHEN MANAGER 170 [facility], 2nd [place] [address] [email or web address] 08/04/2024 2:30 AM EDT Home Care Visit [facility] [address] [place] [phone] Orlando Mckeon RN [address] [place] [address] [email or web address] 08/11/2024 2:00 AM EDT Home Care Visit [facility] [address] [place] [phone] Orlando Mckeon RN [address] [place] [address] [email or web address] 08/18/2024 1:30 AM EDT Home Care Visit [facility] [address] [place] [address] Orlando Mckeon RN [address] [place] [address] [email or web address] 08/25/2024 1:00 AM EDT [facility] [address] [place] [phone] Orlando Mckeon RN [address] [place] [address] [email or web address] 09/01/2024 12:30 AM EDT [facility] [address] [place] [phone] Orlando Mckeon RN [address] [place] [address] 09/18/2024 2:30 PM EDT Office Visit [facility] Infectious Diseases [address] [place] [address] Dana Rucker FNP 15 [facility], [address] [place] [address] 11/26/2024 3:30 PM EDT Office Visit [address] [place] [address] Keren Poon, ORI [address] [place] [address] 12/11/2024 2:00 PM EDT Appointment [facility] 30 [place] [address] Keren Poon, ORI [address] [address] 01/07/2025 2:30 PM EDT Office Visit [facility] [address] [place] [address] Jose Thakur MD 30 [place] [address] 06/03/2025 2:00 PM EST Office Visit [address] [place] [address] Keren Poon, ORI [address] [place] [address] documented as of this encounter Visit Diagnoses [...] documented as of this encounter Care Teams Bore Miner Operator Relationship Specialty Start Date End Date Ita Pineda CNP [address] [place] [address] [email or web address] PCP - General Internal Medicine 08/19/20 09/17/22 Chavo Jack MD [address] [place] [address] [email or web address] PCP - General Internal Medicine 09/18/22 01/30/23 Keren Poon CNP [address] [place] [address], 2nd [place] [address] [email or web address] PCP - General Family Medicine 01/31/23 Cash Fernandes MD 10 [place] [address] [email or web address] Gastroenterology 08/23/20 Seven Menchaca MD [address] [place] [address] [email or web address] Insurance Assigned Provider 08/04/22 08/03/23 Chavo Jack MD 40 [place] [address] [email or web address] Insurance Assigned Provider 08/03/23 05/04/24 Willi Wells MD [address] [place], [place] [address] [address] Rheumatology 02/04/24 Jose Thakur MD [address] [place] [address] [email or web address] Tube And Manifold Builder Pulmonary Disease 03/17/24 Dana Rucker FNP 15 [facility], 2nd [place] [address] [email or web address] Nurse Practitioner Infectious Diseases 05/21/24 Jonathan Alvarez MD [address] [place] [address], [address] [address] [email or web address] Urology 05/14/23 Anival Borja MD [address] [place] [address], [address] [place] [address] [email or web address] Neurologist Neurology 01/04/23 Lyndsay Reynoso FNP 10 [facility] [address] [place] [address] [email or web address] Nurse Practitioner Pain Medicine 05/27/22 Gutierrez Pittman MD 40 [place] [address] Manager Leasing Cardiology 05/27/24 documented as of this encounter Additional Source Comments The information contained in this document represents components of the legal health record. It is not the complete legal health record.[facility]
--- OUTSIDE RECORDS SUMMARY | 2024-07-28 13:46 | XMS_ITS | Encounter Summary ---
Author Organization [facility] Address [address] [place] [address] Care Team Providers Care Pharmacy Technician Name Role Phone Charly Saxena Primary Care Provider [phone] Cheryl Calderon MD Primary Care Provider Reason for Visit * Reason Comments E-prescribing Refill Request Encounter Details Date Type Department Care Team ([facility] st Contact Info) Description 03/18/2017 Refill [facility] Rheumatology [address] [place] [address] Abel Fierro MD [address] [place] [address] E-prescribing Refill Request Social History Tobacco Use [...] to send a request for labs to [facility] in [place], [place] Lab request form sent to the [...] Phone 04/18/17 1:30 PM Abel Fierro MD [facility] Rheumatology [phone] 07/15/17 1:00 PM Abel Fierro MD [facility] Rheumatology [phone] Pertinent lab results: No labs suggested for any medication orders signed or pended in this encounter. Refresh if any orders changed. Allergies: Acetaminophen-codeine; Gold; Opioid analgesics; and Sulfa antibiotics BP Readings from Last 1 Encounters: 12/28/16 (!) 149/85 Patient Active Problem List Diagnosis Date Noted ??? Elbow pain 06/03/2012 ??? Rheumatoid arthritis(714.0) ([facility]) 09/29/2010 Followed by rheumatology treated [...] MOUTH EVERY DAY 0 ??? Nystatin (NYSTOP) 458221 UNIT/GM Powder APPLY TO BUTTOCKS THREE TIMES [...] on filedocumented in this encounter Care Teams Pharmacy Technician Relationship Specialty Start Date End Date Charly Saxena [facility] [address] [place] [address] PCP - General Internal Medicine 05/25/13 07/16/17 Cheryl Calderon MD [facility] Medicine [address] [place] [address] PCP - General Internal Medicine 07/17/17 documented as of this encounter
--- OUTSIDE RECORDS SUMMARY | 2024-07-28 13:46 | XMS_ITS | Encounter Summary ---
Author Organization [facility] Address [address] [place] [address] Care Team Providers Care Floor Manager Name Role Phone Alberto Pacheco Primary Care Provider [phone] Charly Saxena Primary Care Provider [phone] Cheryl Calderon MD Primary Care Provider Encounter Details Date Type Department Care Team (Late st Contact Info) Description 03/31/2009 Orders Only [facility] Rheumatology [address] [place] [address] Abel Fierro MD [address] [place] [address] Social History Tobacco Use Types Packs/Day Years [...] RESULT Final Resul t Performing Organization Address City/State/[facility] Co de Phone Number [facility] [address] [place] [address] * (ABNORMAL) CBC 5 PART DIFF (03/31/2009) [...] RESULT Final Resul t Performing Organization Address City/[facility] Co de Phone Number [facility] [address] [place] [address] * ASPARTATE AMINOTRANSFERASE (AST), SERUM (03/31/2009) AST (SGOT) 20 10 - 35 U/L [facility] 03/31/2009 04/01/2009 12: 36 AM EST Narrative [facility] - 04/01/2009 5:29 AM EST Report Comments: RBC'S PRESENT, CHEMISTRY RESULT(S) MAY BE AFFECTED us Abel Fierro MD LAB SAME DAY RESULT Final Resul t Performing Organization Address City/[facility] Co de Phone Number [facility] [address] [place] [address] * ALANINE AMINOTRANSFERASE (ALT), SERUM (03/31/2009) ALT (SGPT) 21 6 - 40 U/L [facility] 03/31/2009 04/01/2009 12: 36 AM EST Narrative [facility] - 04/01/2009 5:29 AM EST Report Comments: RBC'S PRESENT, CHEMISTRY RESULT(S) MAY BE AFFECTED us Abel Fierro MD LAB SAME DAY RESULT Final Resul t [facility] [address] [place] [address] documented in this encounter Visit Diagnoses Diagnosis Rheumatoid arthritis(714.0) Rheumatoid arthritis documented in this encounter Care Teams Floor Manager Relationship Specialty Start Date End Date Alberto Pacheco [address] [place] [address] PCP - General 07/19/08 05/24/13 Charly Saxena [facility] [address] [place] [address] PCP - General Internal Medicine 05/25/13 07/16/17 Cheryl Calderon MD [facility] Medicine [address] [place] [address] PCP - General Internal Medicine 07/17/17 documented as of this encounter
--- OUTSIDE RECORDS SUMMARY | 2024-07-28 13:46 | XMS_ITS | Encounter Summary ---
Author Organization [facility] Address [address] [place] [address] Care Team Providers Care Pulp Mixer Name Role Phone Cheryl Calderon MD Primary Care Provider [phone] Encounter Details Date Type Department Care Team (Late st Contact Info) Description 03/14/2018 Orders Only [facility]. Rheumatology [address] [place] [phone] Abel Fierro MD [address] [place] [address] Social History Tobacco Use Types Packs/Day Years [...] 9:19 PM EST Narrative Resulting Agency Comment [id number] us Abel Fierro MD LABORATORY Final Result Performing Organization Address City/[facility] Co de Phone Number [facility] [address] [place] [address] * C-REACTIVE PROTEIN (CRP) - INFLAMMATION (03/14/2018 1:47 PM EST) C reactive protein 1.7 <8.0 mg/L [facility] 03/14/2018 1:47 PM EST 03/14/2018 9:19 PM EST Narrative Resulting Agency Comment [id number] us Abel Fierro MD LABORATORY Final Result Performing Organization Address [facility] Co de Phone Number [facility] [address] [place] [address] * ERYTHROCYTE SEDIMENTATION RATE (ESR), WESTERGREN (03/14/2018 1:47 PM EST) Sedimentation Rate Westegren (ESR) 19 < OR = 30 mm/h [facility] 03/14/2018 1:47 PM EST 03/14/2018 9:19 PM EST Narrative Resulting Agency Comment [id number] Abel Fierro MD LAB SAME DAY RESULT Final Resul t Performing Organization Address City/[facility] Co de Phone Number [facility] [address] [place] [address] * CREATININE WITH GLOMERULAR FILTRATION RATE, ESTIMATED (EGFR) (03/14/2018 1:47 PM EST) Creatinine 0.70 0.50 - 0.99 mg/dL [facility] Comment: For patients >49 years of age, the reference limit for Creatinine is approximately 13% higher for people identified as -Algerian. GFR 92 > OR = 60 mL/min/1. [...] needs for GFR calculation. Resulting Agency Comment [id number] us Abel Fierro MD LAB SAME DAY RESULT Final Resul t Performing Organization Address City/[facility] Co de Phone Number [facility] [address] [place] [address] * ALANINE AMINOTRANSFERASE (ALT), SERUM (03/14/2018 1:47 PM EST) ALT (SGPT) 18 6 - 29 U/L [facility] 03/14/2018 1:4 7 PM EST 03/14/2018 9:19 PM EST Narrative Resulting Agency Comment [id number] Abel Fierro MD LAB SAME DAY RESULT Final Resul t [facility] [address] [place] [address] * ASPARTATE AMINOTRANSFERASE (AST), SERUM (03/14/2018 1:47 PM EST) AST (SGOT) 23 10 - 35 U/L [facility] 03/14/2018 1:47 PM EST 03/14/2018 9:19 PM EST Narrative Resulting Agency Comment [id number] Abel Fierro MD LAB SAME DAY RESULT Final Resul t Performing Organization Address [facility] de Phone Number [facility] [address] [place] [address] * (ABNORMAL) CBC INCLUDES DIFFERENTIAL AND PLATELET [...] 9:19 PM EST Narrative Resulting Agency Comment [id number] us Abel Fierro MD LAB SAME DAY RESULT Final Resul t Performing Organization Address City/State/[facility] Co de Phone Number [facility] [address] [place] [address] documented in this encounter Visit Diagnoses Diagnosis Rheumatoid arthritis involving multiple sites with positive rheumatoid factor (HCC) documented in this encounter Care Teams Pulp Mixer Relationship Specialty Start Date End Date Cheryl Calderon MD [facility] Adult Medicine [address] [place] [address] PCP - General Internal Medicine 07/17/17 documented as of this encounter
--- OUTSIDE RECORDS SUMMARY | 2024-07-28 13:46 | XMS_ITS | Encounter Summary ---
Author Organization [facility] Address [address] [place] [address] Care Team Providers Care Roll Capper Name Role Phone Charly Saxena Primary Care Provider [phone] Cheryl Calderon MD Primary Care Provider [phone] Encounter Details Date Type Department Care Team (Late st Contact Info) Description 07/15/2017 Orders Only [facility] Rheumatology [address] [place] [address] Abel Fierro MD [address] [place] [address] Social History Tobacco Use Types Packs/Day Years [...] approximately 13% higher for people identified as -Beninese. GFR 93 > OR = 60 mL/min/1. [...] needs for GFR calculation. Resulting Agency Comment [id number] us Abel Fierro MD LAB SAME DAY RESULT Final Resul t [facility] [address] [place] [address] * ALANINE AMINOTRANSFERASE (ALT), SERUM (07/15/2017 1:44 PM EDT) ALT (SGPT) 23 6 - 29 U/L [facility] 07/15/2017 1:44 PM EDT 07/15/2017 6:18 PM EDT Narrative Resulting Agency Comment [id number] Abel Fierro MD LAB SAME DAY RESULT Final Resul t Performing Organization Address City/[facility]/ZIP Co de Phone Number [facility] [address] [place] [address] * ASPARTATE AMINOTRANSFERASE (AST), SERUM (07/15/2017 1:44 PM EDT) AST (SGOT) 28 10 - 35 U/L [facility] 07/15/2017 1:44 PM EDT 07/15/2017 6:18 PM EDT Narrative Resulting Agency Comment [id number] us Abel Fierro MD LAB SAME DAY RESULT Final Resul t Performing Organization Address [facility] de Phone Number [facility] [address] [place] [address] * (ABNORMAL) CBC INCLUDES DIFFERENTIAL AND PLATELET [...] 6:18 PM EDT Narrative Resulting Agency Comment [id number] us Abel Fierro MD LAB SAME DAY RESULT Final Resul t [facility] [address] [place] [address] documented in this encounter Visit Diagnoses Diagnosis Rheumatoid arthritis involving multiple sites, unspecified rheumatoid factor presence documented in this encounter Care Teams Roll Capper Relationship Specialty Start Date End Date Charly Saxena [facility] [address] [place] [address] PCP - General Internal Medicine 05/25/13 07/16/17 Cheryl Calderon MD [facility] Adult Medicine [address] [place] [address] PCP - General Internal Medicine 07/17/17 documented as of this encounter
--- OUTSIDE RECORDS SUMMARY | 2024-07-28 13:46 | XMS_ITS | Encounter Summary ---
Author Organization [facility] Address [address] [place] [address] Phone Care Team Providers Care Spray Painting Machine Operator Name Role Phone Patrick Sanchez MD Unavailable [phone] Cheryl Calderon MD Primary Care Provider Keren Mabry MD Unavailable Louisa Hogan MD Unavailable [phone] Charly Saxena DO Unavailable [phone] Abhinav Muhammad MD Unavailable [phone] Cheryl Giraldo SALES AND OPERATIONS TRAINEE Unavailable Wilfrido Steel MD Unavailable [phone] Sharon Martin PA-C Unavailable Ita Pineda [employer]ON GLASS BENDER Primary Care Provider Cash Fernandes MD Unavailable [phone] Seven Menchaca MD Unavailable Chavo Jack MD Primary Care Provider [phone] Keren Poon [employer]ASS BENDER Primary Care Provid er Chavo Jack MD Unavailable Willi Wells MD Unavailable Jose Thakur MD Unavailable [phone] Dana Rucker CARBURETOR REPAIRER Unavailable [phone] Jonathan Alvarez MD Unavailable [phone] Anival Borja MD Unavailable [place] Lyndsay Mckeon CARBURETOR REPAIRER Unavailable Gutierrez Pittman MD Unavailable Encounter Details Date Type Department Care Team (Late Contact Info) Description 04/30/2018 Procedure Pass BWF Periop 6th floor [facility] [place] [address] Social History Tobacco Use Types Packs/Day Years [...] (Late Contact Info) Description 06/06/2024 Procedure Pass [address] [address] 07/30/2024 3:30 PM EDT Office Visit [facility] [address] [place] [address] [place] [address] Keren Poon, ORI [address] [facility], 2nd [place] [address] 08/04/2024 2:30 AM EDT Home Care Visit [facility] [address] [place] [phone] Orlando Mckeon, RENZO [address] [place] [address] 08/11/2024 2:00 AM EDT Home Care Visit [facility] [address] [place] [phone] Orlando Mckeon RN [address] [place] [address] [email or web address] 08/18/2024 1:30 AM EDT Home Care Visit [facility] [address] [place] [phone] Orlando Mckeon RN [address] [place] [address] 08/25/2024 1:00 AM EDT Home Care Visit [facility] [address] [place] [phone] Orlando Mckeon, RENZO [address] [place] [address] [email or web address] 09/01/2024 12:30 AM EDT Appointment [facility] [address] [place] [phone] Orlando Mckeon, RENZO [address] [place] [address] 09/18/2024 2:30 PM EDT Office Visit [facility] Infectious Diseases [address] [place] [address] Dana Rucker, DIVYA 15 [facility], 2nd [place] [address] 11/26/2024 3:30 PM EDT Office Visit [facility] [address] [place] [address] [place] [address] Keren Poon, [address] 2nd [facility] [place] [address] [email or web address] 12/11/2024 2:00 PM EDT Appointment [facility], [facility] [address] [place] [address] Keren Poon CNP [address] [facility], [address]nd [place] [address] [email or web address] 01/07/2025 2:30 PM EDT Office Visit [facility] [address] [place] [address] Jose Thakur MD [address] [place] [address] 06/03/2025 2:00 PM EST Office Visit [facility] [address] [place] [address] [place] [address] Keren Poon, ORI [address] [facility], [address] [place] [address] [email or web address] documented as of this encounter Visit Diagnoses [...] documented as of this encounter Care Teams Spray Painting Machine Operator Relationship Specialty Start Date End Date Cheryl Calderon MD [address] [place] [address] PCP - General Family Medicine 04/23/18 08/18/20 Ita Pineda CNP [address] [place] [address] PCP - General Internal Medicine 08/19/20 09/17/22 Chavo Jack MD [address] [place] [address] PCP - General Internal Medicine 09/18/22 01/30/23 Keren Poon CNP [address] [place] [address], 2nd [place] [address] PCP - General Family Medicine 01/31/23 Patrick Sanchez MD [address] [place] [address] Department [place] [address] [email or web address] Historical LMR Provider 09/10/14 Keren Mabry MD [address] [place] [address] Historical LMR Provider 07/10/18 Louisa Hogan MD [address] [place] [address] [email or web address] Historical LMR Provider 07/10/1807/29 Charly Saxena DO [address] [place] [address] Historical LMR Provider 07/10/18 Abhinav Muhammad MD [address] [place] [address] [email or web address] Historical LMR Provider 07/10/18 08/22/20 Cheryl Giraldo NP [address] [place] [address] Historical LMR Provider 07/10/18 Wilfrido Steel MD 12 [facility]. [address] [place] [address] Historical LMR Provider 07/10/18 Sharon Martin PA-C [address] [place] [address] [email or web address] Historical LMR Provider 07/10/18 08/22/20 Cash Fernandes MD [address] [place] [address] Gastroenterology 08/23/20 Seven Menchaca MD [address] [place] [address] Insurance Assigned Provider 08/04/22 08/03/23 Chavo Jack MD [address] [place] [address] Insurance Assigned Provider 08/03/23 05/04/24 Willi Wells MD [address]_[place] [address] Rheumatology 02/04/24 Jose Thakur MD [address] [place] [address] [email or web address] Inspector Floor Sub Assembly Pulmonary Disease 03/17/24 Dana Rucker FNP 15 [facility], 2nd [place] [address] [email or web address] Nurse Practitioner Infectious Diseases 05/21/24 Jonathan Alvarez MD [address] [place] [address], [address] [place] [address] [email or web address] Urology 05/14/23 Anival Borja MD [address] [place] [address], [address] [place] [address] Neurologist Neurology 01/04/23 Lyndsay Reynoso FNP [address] [place] [address] [email or web address] Nurse Practitioner Pain Medicine 05/27/22 Gutierrez Pittman MD [address] [place] [address] [employer] [facility] Cardiology 05/27/24 documented as of this encounter Additional Source Comments The information contained in this document represents components of the legal health record. It is not the complete legal health record.[facility]
--- OUTSIDE RECORDS SUMMARY | 2024-07-28 13:46 | XMS_ITS | Encounter Summary ---
Author Organization [facility] Address [address] [place] [address] Care Team Providers Care Cop Winder Name Role Phone Cheryl Calderon MD Primary Care Provider [phone] Encounter Details Date Type Department Care Team (Late st Contact Info) Description 09/30/2018 Orders Only [facility]. Rheumatology [address] [place] [phone] Melanie Aguirre MD [address] [place] [address] Social History Tobacco Use Types Packs/Day Years [...] involving multiple sites with positive rheumatoid factor SM/TRUCK MECHANIC ANTIBODY Routine 09/30/2018 11:38 AM EDT Rheumatoid arthritis involving multiple sites with positive rheumatoid factor TRUCK MECHANIC ANTIBODY Routine 09/30/2018 11:38 AM EDT Rheumatoid [...] 9:04 PM EDT Narrative Resulting Agency Comment [id number] us Melanie Aguirre MD LABORATORY Final Result Performing Organization Address City/[facility] Co de Phone Number [facility] [address] [place] [address] * (ABNORMAL) SJOGRENS SYNDROME ANTIBODIES (SSA AND SSB) (09/30/2018 11:38 AM EDT) Sjogrens syndrome-A extractable nuclear Ab 4.1 POS(A) <1.0 NEG AI [facility] Sjogrens syndrome-B extractable nuclear Ab <1.0 NEG <1.0 NEG AI [facility] 09/30/2018 11:3 8 AM EDT 09/30/2018 9:04 PM EDT Narrative Resulting Agency Comment [id number] us Melanie Aguirre MD LABORATORY Final Result Performing Organization Address [facility] Co de Phone Number [facility] [address] [place] [address] * (ABNORMAL) ERYTHROCYTE SEDIMENTATION RATE (ESR), WESTERGREN (09/30/2018 11:38 AM EDT) Sedimentation Rate Westegren (ESR) 45(H) < OR = 30 mm/h [facility] 09/30/2018 11:3 8 AM EDT 09/30/2018 9:04 PM EDT Narrative Resulting Agency Comment [id number] us Melanie Aguirre MD LAB SAME DAY RESULT Final Result Performing Organization Address [facility] Co de Phone Number [facility] [address] [place] [address] * TRUCK MECHANIC ANTIBODY (09/30/2018 11:38 AM EDT) Ribonucleoprotein extractable nuclear Ab <1.0 NEG <1.0 NEG AI [facility] 09/30/2018 11:3 8 AM EDT 09/30/2018 9:04 PM EDT Narrative Resulting Agency Comment [id number] Melanie Aguirre MD LABORATORY Final Result Performing Organization Address City/[facility]/ZIP Co de Phone Number [facility] [address] [place] [address] * QUANTIFERON-TB GOLD (09/30/2018 11:38 AM EDT) [facility] Quantiferon(R)-TB Gold Plus NEGATIVE NEGATIVE [facility] [...] T-lymphocytes. For additional information, please refer to https://education.KoolLearning.KargoCard/faq/NTM486 (This link is being provided for informational/ educational purposes only.) 09/30/2018 11:3 8 AM EDT 09/30/2018 9:04 PM EDT Narrative Resulting Agency Comment [id number] Melanie Aguirre MD LABORATORY Final Result Performing Organization Address City/[facility]/ZIP Co de Phone Number [facility] [address] [place] [address] * HEPATITIS C AB WITH REFLEX TO [...] a test for HCV RNA (test code 56117) is suggested. For additional information please refer to http://education.[employer]/faq/UPF21g2 (This link is being provided for informational/ educational purposes only.) 09/30/2018 11:3 8 AM EDT 09/30/2018 9:04 PM EDT Narrative Resulting Agency Comment [id number] us Melanie Aguirre MD LABORATORY Final Result Performing Organization Address [facility] Co de Phone Number [facility] [address] [place] [address] * HEPATITIS B SURFACE ANTIGEN (09/30/2018 11:38 AM EDT) Pathologist [facility] Hepatitis B virus surface Ag NON-REACTI VE NON-REACT MANOLO [facility] 09/30/2018 11:3 8 AM EDT 09/30/2018 9:04 PM EDT Narrative Resulting Agency Comment [id number] us Melanie Aguirre MD LABORATORY Final Result Performing Organization Address [facility] [[email or web address]] de Phone Number [facility] [address] [place] [address] * (ABNORMAL) C-REACTIVE PROTEIN (CRP) - INFLAMMATION (09/30/2018 11:38 AM EDT) Pathologist [facility] C reactive protein 10.9(H) <8.0 mg/L [facility] 09/30/2018 11:3 8 AM EDT 09/30/2018 9:04 PM EDT Narrative Resulting Agency Comment [id number] us Melanie Aguirre MD LABORATORY Final Result Performing Organization Address [facility] Co de Phone Number [facility] [address] [place] [address] * (ABNORMAL) COMPREHENSIVE METABOLIC PANEL WITH GFR [...] approximately 13% higher for people identified as -Belarusian. EGFR 77 > OR = 60 mL/min/1 [...] needs for GFR calculation. Resulting Agency Comment [id number] Melanie Aguirre MD LABORATORY Final Result Performing Organization Address [facility] [[email or web address]] de Phone Number [facility] [address] [place] [address] * (ABNORMAL) CYCLIC CITRULLINATEDPEPTIDE CCP AB IGG (09/30/2018 11:38 AM EDT) [facility] CCP Ab, IgG 45(H) UNITS [facility] Comment: Reference Range Negative: ?<20 Weak Positive: ? 20-39 Moderate Positive: ?? 40-59 Strong Positive: ? >59 09/30/2018 11:3 8 AM EDT 09/30/2018 9:04 PM EDT Narrative Resulting Agency Comment [id number] Melanie Aguirre MD LABORATORY Final Result Performing Organization Address [facility] [[email or web address]] de Phone Number [facility] [address] [place] [address] * (ABNORMAL) CBC INCLUDES DIFFERENTIAL AND PLATELET COUNT (09/30/2018 11:38 AM EDT) [facility] WBC 7.4 3.8 - 10.8 Thousand/u L [...] 9:04 PM EDT Narrative Resulting Agency Comment [id number] Melanie Aguirre MD LAB SAME DAY RESULT Final Result Performing Organization Address [facility] Co de Phone Number [facility] [address] [place] [address] * SM/TRUCK MECHANIC ANTIBODY (09/30/2018 11:38 AM EDT) Arevalo extractable nuclear Ab+Ribonucleopr otein extractable nuclear Ab <1.0 NEG <1.0 NEG AI [facility] 09/30/2018 11:3 8 AM EDT 09/30/2018 9:04 PM EDT Narrative Resulting Agency Comment [id number] Melanie Aguirre MD LABORATORY Final Result Performing Organization Address [facility] [[email or web address]] de Phone Number [facility] [address] [place] [address] * DNA (DS) ANTIBODY (09/30/2018 11:38 AM EDT) Dna (DS) Antibody <1 IU/mL [facility] Comment: ? IU/mL ? Interpretation ? < or = 4 ?Negative ? 5-9 ? Indeterminate ? > or = 10 ?? Positive 09/30/2018 11:3 8 AM EDT 09/30/2018 9:04 PM EDT Narrative Resulting Agency Comment [id number] us Melanie Aguirre MD LABORATORY Final Result Performing Organization Address City/[facility] Co de Phone Number [facility] [address] [place], [place] * PASTORA IFA, W/ REFLEX TO TITER/PATTERN/COMPREHENSIVE [...] for interpretation of all antibodies in the [place], prevalence, and association with diseases at http://Vascular Pathways.Chemclin/ faq/OBY007 09/30/2018 11:3 8 AM EDT 09/30/2018 9:04 PM EDT Narrative Resulting Agency Comment [id number] us Melanie Aguirre MD LABORATORY Final Result Performing Organization Address [facility] Co de Phone Number [facility] [address] [place] [address] documented in this encounter Visit Diagnoses Diagnosis Rheumatoid arthritis involving multiple sites with positive rheumatoid factor (HCC) documented in this encounter Care Teams Cop Winder Relationship Specialty Start Date End Date Cheryl Calderon MD [facility] Adult Medicine [address] [place] [address] PCP - General Internal Medicine 07/17/17 documented as of this encounter
--- OUTSIDE RECORDS SUMMARY | 2024-07-28 13:46 | XMS_ITS | Encounter Summary ---
Author Organization [facility] Address [address] [place] [address] Care Team Providers Care Sandblaster Paint Sprayer Name Role Phone Cheryl Calderon MD Primary Care Provider [phone] Reason for Visit * Reason Comments E-prescribing Refill Request Encounter Details Date Type Department Care Team (Late st Contact Info) Description 09/19/2017 Refill [facility] Rheumatology [address] [place] [address] Abel Fierro MD [address] [place] [address] E-prescribing Refill Request Social History Tobacco Use [...] Phone 01/16/18 1:00 PM Abel Fierro MD [facility] Rheumatology [phone] Pertinent lab results: Lab Results Component Value [...] ??? Elbow pain 06/03/2012 ??? Rheumatoid arthritis(714.0) ([facility]) 09/29/2010 Followed by rheumatology treated [...] AN EMPTY STOMACH 6 ??? Nystatin (NYSTOP) 804994 UNIT/GM Powder APPLY TO BUTTOCKS THREE TIMES [...] on filedocumented in this encounter Care Teams Sandblaster Paint Sprayer Relationship Specialty Start Date End Date Cheryl Calderon MD [facility] Adult Medicine [address] [place] [address] PCP - General Internal Medicine 07/17/17 documented as of this encounter
--- OUTSIDE RECORDS SUMMARY | 2024-07-28 13:46 | XMS_ITS | Encounter Summary ---
Author Organization [facility] Address [address] [place] [address] Care Team Providers Care Synthetic Soil Blocks Pulper Name Role Phone Cheryl Calderon MD Primary Care Provider [phone] Encounter Details Date Type Department Care Team (Late st Contact Info) Description 07/15/2018 Orders Only [facility]. Rheumatology [address] [place] [phone] Melanie Aguirre MD [address] [place] [address] Social History Tobacco Use Types Packs/Day Years [...] 12:27 AM EDT Narrative Resulting Agency Comment [id number] Melanie Aguirre MD LABORATORY Final Result Performing Organization Address [facility] Co de Phone Number [facility] [address] [place] [address] * (ABNORMAL) ERYTHROCYTE SEDIMENTATION RATE (ESR), WESTERGREN (07/15/2018 4:34 PM EDT) Sedimentation Rate Westegren (ESR) 50(H) < OR = 30 mm/h [facility] 07/15/2018 4:34 PM EDT 07/16/2018 12:27 AM EDT Narrative Resulting Agency Comment [id number] us Melanie Aguirre MD LAB SAME DAY RESULT Final Result Performing Organization Address [facility] Co de Phone Number [facility] [address] [place] [address] * (ABNORMAL) COMPREHENSIVE METABOLIC PANEL WITH GFR [...] 13% higher for people identified as -Kuwaiti. EGFR 95 > OR = 60 mL/min/1 [...] MD LABORATORY Final Result [facility] [address] [place] [address] * (ABNORMAL) CBC INCLUDES DIFFERENTIAL AND PLATELET [...] 12:27 AM EDT Narrative Resulting Agency Comment [id number] Melanie Aguirre MD LAB SAME DAY RESULT Final Result Performing Organization Address City/State/[facility] Co de Phone Number [facility] [address] [place] [address] documented in this encounter Visit Diagnoses Diagnosis Rheumatoid arthritis involving multiple sites with positive rheumatoid factor (HCC) documented in this encounter Care Teams Synthetic Soil Blocks Pulper Relationship Specialty Start Date End Date Cheryl Calderon MD [facility] Adult Medicine [address] [place] [address] PCP - General Internal Medicine 07/17/17 documented as of this encounter
--- OUTSIDE RECORDS SUMMARY | 2024-07-28 13:46 | XMS_ITS | Encounter Summary ---
Author Organization [facility] Address [address] [place] [address] Care Team Providers Care Manager Lean Name Role Phone Charly Saxena Primary Care Provider Cheryl Calderon MD Primary Care Provider [phone] Encounter Details Date Type Department Care Team (Late st Contact Info) Description 12/28/2016 Orders Only [facility] Rheumatology [address] [place] [address] Abel Fierro MD [address] [place] [address] Social History Tobacco Use Types Packs/Day Years [...] 8:27 PM EDT Narrative Resulting Agency Comment [id number] us Abel Fierro MD LAB SAME DAY RESULT Final Resul t [facility] [address] [place] [address] * ALANINE AMINOTRANSFERASE (ALT), SERUM (12/28/2016 3:13 PM EDT) ALT (SGPT) 29 6 - 29 U/L [facility] 12/28/2016 3:13 PM EDT 12/28/2016 8:27 PM EDT Narrative Resulting Agency Comment [id number] us Abel Fierro MD LAB SAME DAY RESULT Final Resul t [facility] [address] [place] [address] * C-REACTIVE PROTEIN (CRP) - INFLAMMATION (12/28/2016 3:13 PM EDT) C reactive protein 0.24 <0.80 mg/dL [facility] Comment: Please be advised that patients taking Carboxypenicillins may exhibit falsely decreased C-Reactive Protein levels due to an analytical interference in this assay. 12/28/2016 3:13 PM EDT 12/28/2016 8:27 PM EDT Narrative Resulting Agency Comment [id number] Abel Fierro MD LABORATORY Final Result Performing Organization Address [facility] Co de Phone Number [facility] [address] [place] [address] * ERYTHROCYTE SEDIMENTATION RATE (ESR), WESTERGREN (12/28/2016 3:13 PM EDT) Pathologist [facility] Sedimentation Rate Westegren (ESR) 6 < OR = 30 mm/h [facility] 12/28/2016 3:13 PM EDT 12/28/2016 8:27 PM EDT Narrative Resulting Agency Comment [id number] Abel Fierro MD LAB SAME DAY RESULT Final Resul t Performing Organization Address [facility] de Phone Number [facility] [address] [place] [address] * (ABNORMAL) BASIC METABOLIC PANEL WITH (GFR) [...] approximately 13% higher for people identified as -Lebanese. GFR 77 > OR = 60 mL/min/1 [...] needs for GFR calculation. Resulting Agency Comment [id number] us Abel Fierro MD LABORATORY Final Result [facility] [address] [place] [address] * (ABNORMAL) CBC INCLUDES DIFFERENTIAL AND PLATELET [...] 8:27 PM EDT Narrative Resulting Agency Comment [id number] us Abel Fierro MD LAB SAME DAY RESULT Final Resul t Performing Organization Address City/State/[facility] Co de Phone Number [facility] [address] [place] [address] documented in this encounter Visit Diagnoses Diagnosis Rheumatoid arthritis involving multiple sites with positive rheumatoid factor (HCC) documented in this encounter Care Teams Manager Lean Relationship Specialty Start Date End Date Charly Saxena [facility] [address] [place] [address] PCP - General Internal Medicine 05/25/13 07/16/17 Cheryl Calderon MD [facility] Medicine [address] [place] [address] PCP - General Internal Medicine 07/17/17 documented as of this encounter
--- OUTSIDE RECORDS SUMMARY | 2024-07-28 13:46 | XMS_ITS | Encounter Summary ---
Author Organization [facility] Address [address] [place] [address] Phone Care Team Providers Care Snipper Name Role Phone Cash Fernandes MD Unavailable [phone] Keren Poon [facility] Primary Care Provid er Willi Wells MD Unavailable Jose Thakur MD Unavailable Dana Rucker SALES AND SERVICE AGENT Unavailable Jonathan Alvarez MD Unavailable [phone] Anival Borja MD Unavailable Lyndsay Reynoso SALES AND SERVICE AGENT Unavailable [phone] Gutierrez Pittman MD Unavailable [phone] Reason for Visit * Reason Onset Date Comments Medication Prior Authorization 07/24/2024 V OWST Encounter Details Date Type Department Care Team (Late st Contact Info) Description 07/24/2024 Telephone [facility] Infectious Diseases [address] [place] [address] Dana Rucker FNP [address] [facility], 2nd [place] [address] Medication Prior Authorization (VOWST) Social History Tobacco [...] as of this encounter Progress Notes * Belidna Cho MA - 07/28/2024 11:59 AM EDT Fax all notes, labs and discharge summaries to [facility] [phone] * Dana Rucker FNP - 07/24/2024 3:05 PM EDT Pt needs to have paperwork (which I left on your desk, Belinda) faxed to [facility]. Please include my notes, the discharge summaries from pt's last 3 hospitalizations, the note from Dr. Fernandes from her last hospitalization, and all the C diff lab work and most recent CBC and CMP. Thank you. documented in this encounter Plan of Treatment Upcoming Encounters Date Type Department Care Team (Late st Contact Info) Description 06/06/2024 Procedure Pass [address] [address] 07/30/2024 3:30 PM EDT Office Visit [facility] [address] [place] [address] Keren Poon, MANAGER MORTGAGE [address] [facility], 2nd [place] [address] [email or web address] 08/04/2024 2:30 AM EDT Home Care Visit [facility] [address] [place] [address] Orlando Mckeon, RENZO [address] [place] [address] [email or web address] 08/11/2024 2:00 AM EDT Home Care Visit [facility] [address] [place] [phone] Orlando Mckeon RN [address] [place] [address] [email or web address] 08/18/2024 1:30 AM EDT Home Care Visit [facility] [address] [place] [phone] Orlando Mckeon, RENZO [address] [place] [address] [email or web address] 08/25/2024 1:00 AM EDT Home Care Visit [facility] [address] [place] [phone] Orlando Mckeon, RENZO [address] [place] [address] [email or web address] 09/01/2024 12:30 AM EDT Appointment [facility] [address] [place] [address] Orlando Mckeon, RENZO [address] [place] [address] [email or web address] 09/18/2024 2:30 PM EDT Office Visit [facility] Infectious Diseases [address] [place] [address] Dana Rucker, DIVYA [address] [address] 11/26/2024 3:30 PM EDT Office Visit [address] [place] [address] Keren Poon, ORI [address] [place] [address] 12/11/2024 2:00 PM EDT Appointment [address] [address] Keren Poon, ORI [address] [place] [address] 01/07/2025 2:30 PM EDT Office Visit [facility] [address] [place] [address] Jose Thakur MD [address] [place] [address] 06/03/2025 2:00 PM EST Office Visit [address] [place] [address] Keren Poon, ORI [address] [place] [address] documented as of this encounter Visit Diagnoses Not on filedocumented in this encounter Additional Health Concerns Infection Onset Date Last Indicated Resolved Time C. diff 07/10/2024 07/10/2024 Assessment Noted Time PHQ-9 Depression Total Score: 5 05/09/19 24 6:55 AM EST PHQ-2 Depression Total Score: 2 01/29/20 25 1:55 PM EST documented as of this encounter Care Teams Snipper Relationship Specialty Start Date End Date Keren Poon, ORI [address] [place] [address], [address] [place] [address] PCP - General Family Medicine 01/31/23 Cash Fernandes MD [address] [place] [address] Gastroenterology 08/23/20 Willi Wells MD [address] [place] [address] [address] [address] Rheumatology 02/04/24 Jose Thakur MD [address] [place] [address] Crew Scheduler Pulmonary Disease 03/17/24 Dana Rucker FNP [address] [facility], [address] [place] [address] Nurse Practitioner Infectious Diseases 05/21/24 Jonathan Alvarez MD [address] [place] [address], [address] [place] [address] Urology 05/14/23 Anival Borja MD [address] [place] [address], [address] [place] [address] Neurologist Neurology 01/04/23 Lyndsay Reynoso FNP [address] [place] [address] [address] [place] [address] [email or web address] Practitioner Pain Medicine 05/27/22 Gutierrez Pittman MD [address] [place] [address] Yeast Tender Cardiology 05/27/24 documented as of this encounter Additional Source Comments The information contained in this document represents components of the legal health record. It is not the complete legal health record.[facility]
--- OUTSIDE RECORDS SUMMARY | 2024-07-28 13:47 | XMS_ITS | Encounter Summary ---
Author Organization [facility] Address [address] [place] [address] Care Team Providers Care Cloth Framer Name Role Phone Alberto Pacheco Primary Care Provider [phone] Charly Saxena Primary Care Provider [phone] Cheryl Calderon MD Primary Care Provider [phone] Reason for Visit * Reason Comments E-prescribing Refill Request Encounter Details Date Type Department Care Team (Late st Contact Info) Description 06/16/2011 Refill [facility] Rheumatology [address] [place] [address] Abel Fierro MD [address] [place] [address] E-prescribing Refill Request Social History Tobacco Use [...] her cruise. xc: Alberto Pacheco MD [address] [facility] Next OV: No future appointments. Pertinent [...] on filedocumented in this encounter Care Teams Cloth Framer Relationship Specialty Start Date End Date Alberto Pacheco [address] [place] [phone] PCP - General 07/19/08 05/24/13 Charly Saxena [facility] [address] [place] [address] PCP - General Internal Medicine 05/25/13 07/16/17 Cheryl Calderon MD [facility] Adult Medicine [address] [place] [address] PCP - General Internal Medicine 07/17/17 documented as of this encounter
--- OUTSIDE RECORDS SUMMARY | 2024-07-28 13:47 | XMS_ITS | Encounter Summary ---
Author Organization [facility] Address [address] [place] [address] Care Team Providers Care Machine Packager Name Role Phone Alberto Pacheco Primary Care Provider [phone] Unknown Pcp, Non [facility] Primary Care Provider Unava ilable Charly Saxena Primary Care Provider [phone] Charly Saxena Primary Care Provider [phone] Cheryl Calderon MD Primary Care Provider [phone] Encounter Details Date Type Department Care Team (Late st Contact Info) Description 02/03/2007 Orders Only [facility] Rheumatology [address] [place] [address] Nikkie Moss, PLEAT PATTERNMAKER [address] [place], [place] [phone] Social History Tobacco Use Types Packs/Day Years [...] of this encounter Results * Due to [place] state law, this organization might not be sharing negative HIV tests. * ASPARTATE AMINOTRANSFERASE (AST), SERUM (02/04/2007) AST (SGOT) 16 10 - 35 U/L [facility] (CLIA# [id number]) 02/04/2007 02/04/2007 7:3 1 PM EDT us Abel Fierro MD LAB SAME DAY RESULT Final Resul t [facility] (CLIA# [id number]) [address] [place] [address] * (ABNORMAL) CBC 5 PART DIFF (02/04/2007) WHITE BLOOD COUNT 9.7 3.8 - 10.8 THOUS/UL [facility] (CLIA# [id number]) RBC 5.08 3.80 - 5.10 MIL/UL [facility] (CLIA# [id number]) Hemoglobin 15.4 11.7 - 15.5 G/DL [facility] (CLIA# [id number]) HCT (HEMATOCRIT) 45.3(H) 35.0 - 45.0 % [facility] (CLIA# [id number]) MCV 89.2 80.0 - 100.0 FL [facility] (CLIA# [id number]) MCH 30.4 27.0 - 33.0 PG [facility] (CLIA# [id number]) MCHC 34.1 32.0 - 36.0 G/DL [facility] (CLIA# [id number]) BAND % 0 0 - 5 % [facility] (CLIA# [id number]) NEUTROPHIL % 84(H) 48 - 75 % [facility] (CLIA# [id number]) LYMPHOCYTE % 10(L) 17 - 40 % [facility] (CLIA# [id number]) MONOCYTE % 6 0 - 14 % [facility] (CLIA# [id number]) EOSINOPHIL % 0 0 - 5 % [facility] (CLIA# [id number]) BASOPHIL % 0 0 - 3 % [facility] (CLIA# [id number]) ATYPICAL LYMPHOCYTE % 0 0 - 5 % [facility] (CLIA# [id number]) PLATELETS 392 140 - 400 THOUS/UL [facility] (CLIA# [id number]) BANDS # 0 0 - 750 CELLS/MCL [facility] (CLIA# [id number]) NEUTROPHILS # 8148(H) 1500 - 7800 CELLS/MCL [facility] (CLIA# [id number]) LYMPHOCYTES # 970 850 - 3900 CELLS/MCL [facility] (CLIA# [id number]) MONOCYTES # 582 200 - 950 CELLS/MCL [facility] (CLIA# [id number]) EOSINOPHILS # 0(L) 15 - 550 CELLS/MCL [facility] (CLIA# [id number]) BASOPHILS # 0 0 - 200 CELLS/MCL [facility] (CLIA# [id number]) ATYPICAL LYMPHOCYTES # 0 0 - 200 /UL [facility] (CLIA# [id number]) RDW 14.6 11.0 - 15.0 % [facility] (CLIA# [id number]) MPV 7.6 7.5 - 11.5 FL [facility] (CLIA# [id number]) 02/04/2007 02/04/2007 7:3 1 PM EDT us Abel Fierro MD LAB SAME DAY RESULT Final Resul t [facility] (CLIA# [id number]) [address] [place] [address] documented in this encounter Visit Diagnoses Diagnosis RHEUMATOID ARTHRITIS- Primary Rheumatoid arthritis documented in this encounter Care Teams Machine Packager Relationship Specialty Start Date End Date Alberto Pacheco [address] [place] [phone] PCP - General 07/19/08 05/24/13 Unknown Pcp, Non [facility] PCP - General 06/30/08 07/18/08 Charly Saxena [address] [address] PCP - General 01/18/06 06/29/08 Charly Saxena [address] [place] [address] PCP - General Internal Medicine 05/25/13 07/16/17 Cheryl Calderon MD [facility] Adult Medicine [address] [place] [address] PCP - General Internal Medicine 07/17/17 documented as of this encounter
--- OUTSIDE RECORDS SUMMARY | 2024-07-28 13:47 | XMS_ITS | Encounter Summary ---
Author Organization [facility] Address [address] [place] [address] Care Team Providers Care Correctional Therapy Director Name Role Phone Alberto Pacheco Primary Care Provider [phone] Charly Saxena Primary Care Provider [phone] Cheryl Calderon MD Primary Care Provider [phone] Reason for Visit * Reason Comments E-prescribing Refill Request Encounter Details Date Type Department Care Team ([facility] st Contact Info) Description 10/20/2011 Refill [facility] Rheumatology [address] [place] [address] Abel Fierro MD [address] [place] [address] E-prescribing Refill Request Social History Tobacco Use [...] on filedocumented in this encounter Care Teams Correctional Therapy Director Relationship Specialty Start Date End Date Alberto Pacheco [address] [place] [address] PCP - General 07/19/08 05/24/13 Charly Saxena [facility] [address] [place] [address] PCP - General Internal Medicine 05/25/13 07/16/17 Cheryl Calderon MD [facility] Medicine [address] [place] [address] PCP - General Internal Medicine 07/17/17 documented as of this encounter
--- OUTSIDE RECORDS SUMMARY | 2024-07-28 13:47 | XMS_ITS | Encounter Summary ---
Author Organization [facility] Address [address] [place] [address] Care Team Providers Care Cook Jelly Name Role Phone Alberto Pacheco Primary Care Provider [phone] Charly Saxena Primary Care Provider [phone] Cheryl Calderon MD Primary Care Provider [phone] Encounter Details Date Type Department Care Team (Late st Contact Info) Description 08/21/2010 Orders Only [facility] Rheumatology [address] [place] [address] Abel Fierro MD [address] [place] [address] Social History Tobacco Use Types Packs/Day Years [...] this encounter Procedures * Due to [place] state law, this [...] RESULT Final Resul t Performing Organization Address [facility] Co de Phone Number [facility] [address] [place] [address] * ALANINE AMINOTRANSFERASE (ALT), SERUM (08/21/2010) ALT (SGPT) 37 6 - 40 U/L [facility] 08/21/2010 08/21/2010 9:0 1 PM EDT us Abel Fierro MD LAB SAME DAY RESULT Final Resul t Performing Organization Address City/[facility] Co de Phone Number [facility] [address] [place] [address] * ASPARTATE AMINOTRANSFERASE (AST), SERUM (08/21/2010) AST (SGOT) 27 10 - 35 U/L [facility] 08/21/2010 08/21/2010 9:0 1 PM EDT us Abel Fierro MD LAB SAME DAY RESULT Final Resul t Performing Organization Address City/[facility]/ZIP Co de Phone Number [facility] [address] [place] [address] * (ABNORMAL) CBC 5 PART DIFF (08/21/2010) [...] RESULT Final Resul t Performing Organization Address City/[facility]/ZIP Co de Phone Number [facility] [address] [place] [address] documented in this encounter Visit Diagnoses Diagnosis Rheumatoid arthritis(714.0) Rheumatoid arthritis documented in this encounter Care Teams Cook Jelly Relationship Specialty Start Date End Date Alberto Pacheco [address] [place] [address] PCP - General 07/19/08 05/24/13 Charly Saxena [facility] [address] [place] [address] PCP - General Internal Medicine 05/25/13 07/16/17 Cheryl Calderon MD [facility] Medicine [address] [place] [address] PCP - General Internal Medicine 07/17/17 documented as of this encounter
--- OUTSIDE RECORDS SUMMARY | 2024-07-28 13:47 | XMS_ITS | Encounter Summary ---
Author Organization [facility] Address [address] [place] [address] Phone Care Team Providers Care Photographer Assistant Name Role Phone Cash Fernandes MD Unavailable [phone] Keren Poon [facility] Primary Care Provid er Willi Wells MD Unavailable Jose Thakur MD Unavailable Dana Rucker ELECTROSTATIC PAINT OPERATOR Unavailable Jonathan Alvarez MD Unavailable [phone] Anival Borja MD Unavailable Lyndsay Reynoso ELECTROSTATIC PAINT OPERATOR Unavailable Gutierrez Pittman MD Unavailable [phone] Encounter Details Date Type Department Care Team (Late st Contact Info) Description 07/10/2024 Procedure Pass [facility], Ct Scan - [address] [address] Social History Tobacco Use Types Packs/Day Years [...] st Contact Info) Description 06/06/2024 Procedure Pass [address] [address] 07/30/2024 3:30 PM EDT Office Visit [facility] [address] [place] [address] [place] [address] Keren Poon, FOOD QUALITY TECHNICIAN 170 [facility], 2nd [place] [address] 08/04/2024 2:30 AM EDT [facility] [address] [place] [address] Orlando Mckeon RN [address] [place] [address] [email or web address] 08/11/2024 2:00 AM EDT [facility] [address] [place] [address] Orlando Mckeon RN [address] [place] [address] [email or web address] 08/18/2024 1:30 AM EDT [facility] [address] [place] [address] Orlando Mckeon RN [address] [place] [address] 08/25/2024 1:00 AM EDT Home Care Visit [facility] [address] [place] [address] Orlando Mckeon RN [address] [place] [address] 09/01/2024 12:30 AM EDT Appointment [facility] [address] [place], [place] [phone] Orlando Mckeon RN [address] [place] [address] 09/18/2024 2:30 PM EDT Office Visit [facility] Infectious Diseases [address] [place] [address] Dana Rucker FNP [address] [address] 11/26/2024 3:30 PM EDT Office Visit [facility] [address] [place] [address] Keren Poon, FOOD QUALITY TECHNICIAN [address] [address] 12/11/2024 2:00 PM EDT Appointment [facility] [address] [place] [address] Keren Poon, FOOD QUALITY TECHNICIAN [address] [address] 01/07/2025 2:30 PM EDT Office Visit [facility] All[facility] [address] [place] [address] [id number] Jose Thakur MD [address] [place] [address] 06/03/2025 2:00 PM EST Office Visit [facility] [address] [place] [address] [place] [address] Keren Poon Jailyn, ORI 170 [facility], 2nd [place] [address] documented as of this encounter Visit Diagnoses [...] documented as of this encounter Care Teams Photographer Assistant Relationship Specialty Start Date End Date Keren Poon Jailyn, ORI [address] [place] [address], 2nd [facility] [place] [address] PCP - General Family Medicine 01/31/23 Cash Fernandes MD [address] [place] [address] Gastroenterology 08/23/20 Willi Wells MD [address] [place] [address] [address] Rheumatology 02/04/24 Jose Thakur MD [address] [place] [address] Recreation Therapist Pulmonary Disease 03/17/24 Dana Rucker FNP 15 [facility], 2nd [place] [address] [email or web address] Nurse Practitioner Infectious Diseases 05/21/24 Jonathan Alvarez MD [address] [place] [address], [address] [place] [address] [email or web address] Urology 05/14/23 Anival Borja MD [address] [place] [address], [address] [place] [address] Neurologist Neurology 01/04/23 Lyndsay Reynoso FNP 10 [facility] [address] [place] [address] [email or web address] Nurse Practitioner Pain Medicine 05/27/22 Gutierrez Pittman MD [address] [place] [phone] Trucking Contractor Cardiology 05/27/24 documented as of this encounter Additional Source Comments The information contained in this document represents components of the legal health record. It is not the complete legal health record.[facility]
--- OUTSIDE RECORDS SUMMARY | 2024-07-28 13:47 | XMS_ITS | Encounter Summary ---
Author Organization [facility] Address [address] [place] [address] Care Team Providers Care Paper Bag Press Operator Name Role Phone Alberto Pacheco Primary Care Provider [phone] Charly Saxena Primary Care Provider [phone] Cheryl Calderon MD Primary Care Provider Encounter Details Date Type Department Care Team (Late st Contact Info) Description 09/02/2009 Orders Only [facility] Rheumatology [address] [place] [address] Abel Fierro MD [address] [place] [address] Social History Tobacco Use Types Packs/Day Years [...] Resul t Performing Organization Address [facility] de Phone Number [facility] [address] [place] [address] * ASPARTATE AMINOTRANSFERASE (AST), SERUM (09/02/2009) AST (SGOT) 24 10 - 35 U/L [facility] 09/02/2009 09/02/2009 9:5 7 PM EDT us Abel Fierro MD LAB SAME DAY RESULT Final Resul t Performing Organization Address [facility] Phone Number [facility] [address] [place] [address] * CREATININE WITH GLOMERULAR FILTRATION RATE, ESTIMATED [...] t Performing Organization Address City/[facility]/ZIP Co de Phone Number [facility] [address] [place] [address] * (ABNORMAL) CBC 5 PART DIFF (09/02/2009) [...] t Performing Organization Address City/[facility]/ZIP Co de Phone Number [facility] [address] [place] [address] documented in this encounter Visit Diagnoses Diagnosis Rheumatoid arthritis(714.0) Rheumatoid arthritis documented in this encounter Care Teams Paper Bag Press Operator Relationship Specialty Start Date End Date Alberto Pacheco [address] [place] [address] PCP - General 07/19/08 05/24/13 Charly Saxena [facility] [address] [place] [address] PCP - General Internal Medicine 05/25/13 07/16/17 Cheryl Calderon MD [facility] [address] [place] [address] PCP - General Internal Medicine 07/17/17 documented as of this encounter
--- OUTSIDE RECORDS SUMMARY | 2024-07-28 13:47 | XMS_ITS | Encounter Summary ---
Author Organization [facility] Address [address] [place] [address] Care Team Providers Care Customer Service Voice Name Role Phone Alberto Pacheco Primary Care Provider Charly Saxena Primary Care Provider [phone] Cheryl Calderon MD Primary Care Provider [phone] Reason for Visit * Reason Comments E-prescribing Refill Request Encounter Details Date Type Department Care Team (Late st Contact Info) Description 08/21/2010 Refill [facility] Rheumatology [address] [place] [address] Abel Fierro MD [address] [place] [address] E-prescribing Refill Request Social History Tobacco Use [...] on filedocumented in this encounter Care Teams Customer Service Voice Relationship Specialty Start Date End Date Alberto Pacheco [address] [place] [address] PCP - General 07/19/08 05/24/13 Charly Saxena [facility] [address] [place] [address] PCP - General Internal Medicine 05/25/13 07/16/17 Cheryl Calderon MD [facility] Medicine [address] [place] [address] PCP - General Internal Medicine 07/17/17 documented as of this encounter
--- OUTSIDE RECORDS SUMMARY | 2024-07-28 13:47 | XMS_ITS | Encounter Summary ---
Author Organization [facility] Address [address] [place] [address] Care Team Providers Care It Recruiter Name Role Phone Alberto Pacheco Primary Care Provider [phone] Charly Saxena Primary Care Provider [phone] Cheryl Calderon MD Primary Care Provider [phone] Encounter Details Date Type Department Care Team (Late st Contact Info) Description 08/15/2011 Orders Only [facility] Rheumatology [address] [place] [address] Abel Fierro MD [address] [place] [address] Social History Tobacco Use Types Packs/Day Years [...] this encounter Procedures * Due to [place] motify law, this organization might not be sharing negative HIV tests. Procedure Name Priority Date/Time Associated Diagnosis Comments C-REACTIVE PROTEIN (CRP) - INFLAMMATION Routine 08/15/2011 10:22 AM EDT Rheumatoid arthritis (HCC) ERYTHROCYTE SEDIMENTATION RATE (ESR) Routine 08/15/2011 10:22 AM EDT Rheumatoid arthritis ([facility]) CBC INCLUDES DIFFERENTIAL AND PLATELET COUNT Routine 08/15/2011 10:22 AM EDT Rheumatoid arthritis ([facility]) ALANINE AMINOTRANSFERASE (ALT), SERUM Routine 08/15/2011 10:22 AM EDT Rheumatoid arthritis ([facility]) ASPARTATE AMINOTRANSFERASE (AST), SERUM Routine 08/15/2011 10:22 AM EDT Rheumatoid arthritis ([facility]) CREATININE WITH GLOMERULAR FILTRATION RATE, ESTIMATED (EGFR) Routine 08/15/2011 10:22 AM EDT Rheumatoid arthritis ([facility]) documented in this encounter Results * Due to [place] motify law, this organization might not be sharing negative HIV tests. * ERYTHROCYTE SEDIMENTATION RATE (ESR)KUNAL (08/15/2011 10:22 AM EDT) Sedimentation Rate Rockegren (ESR) 6 < OR = 30 mm/h [facility] Comment:{SED RATE BY JONATHAN SYED {[id number]) 08/15/2011 10:2 2 AM EDT 08/15/2011 5:01 PM EDT Narrative Resulting Agency Comment [id number] us Abel Fierro MD LAB SAME DAY RESULT Final Resul t Performing Organization Address [facility] Co de Phone Number [facility] [address] [place] [address] * C-REACTIVE PROTEIN (CRP) - INFLAMMATION (08/15/2011 10:22 AM EDT) C reactive protein 0.15 <0.80 mg/dL [facility] Comment: {C-REACTIVE PROTEIN {[id number]) Please be advised that patients taking Carboxypenicillins may exhibit falsely decreased C-Reactive Protein levels due to an analytical interference in this assay. 08/15/2011 10:2 2 AM EDT 08/15/2011 5:01 PM EDT Narrative Resulting Agency Comment [id number] us Abel Fierro MD LABORATORY Final Result Performing Organization Address [facility] Co de Phone Number [facility] [address] [place] [address] * CREATININE WITH GLOMERULAR FILTRATION RATE, ESTIMATED (EGFR) (08/15/2011 10:22 AM EDT) Creatinine 0.87 0.50 - 1.05 mg/dL [facility] Comment: {CREATININE {[id number]) For patients >49 years of age, the reference limit for Creatinine is approximately 13% higher for people identified as -Moroccan. GFR 74 > OR = 60 mL/min/1. 73m2 [facility] Comment:{eGFR NON-AFR. AMERI CAN {[id number]) GFR () 86 > OR = 60 mL/min/1. 73m2 [facility] Comment:{eGFR AMERIC AN {[id number]) 08/15/2011 10:2 2 AM EDT 08/15/2011 5:01 [...] needs for GFR calculation. Resulting Agency Comment [id number] us Abel Fierro MD LAB SAME DAY RESULT Final Resul t [facility] [address] [place] [address] * (ABNORMAL) CBC INCLUDES DIFFERENTIAL AND PLATELET COUNT (08/15/2011 10:22 AM EDT) WBC 7.5 3.8 - 10.8 Thousand/ uL [facility] Comment:{WHITE BLOOD CELL CO UNT {[id number]) RBC 5.26(H) 3.80 - 5.10 Million/u L [facility] Comment:{RED BLOOD CELL COUN T {[id number]) Hemoglobin 14.6 11.7 - 15.5 g/dL [facility] Comment:{HEMOGLOBIN {[id number]) Hematocrit 44.5 35.0 - 45.0 % [facility] Comment:{HEMATOCRIT {[id number]) MCV 84.7 80.0 - 100.0 fL [facility] Comment:{MCV {[id number]) MCH 27.8 27.0 - 33.0 pg [facility] Comment:{MCH {[id number]) MCHC 32.8 32.0 - 36.0 g/dL [facility] Comment:{MCHC {[id number]) RDW 14.8 11.0 - 15.0 % [facility] Comment:{RDW {[id number]) PLT 238 140 - 400 Thousand/ uL [facility] Comment:{PLATELET COUNT {[id number]) MPV 8.4 7.5 - 11.5 fL [facility] Comment:{MPV {[id number]) Neutrophils # 4643 1500 - 7800 cells/uL [facility] Comment:{ABSOLUTE NEUTROPHIL S {[id number]) Lymphocytes # 2265 850 - 3900 cells/uL [facility] Comment:{ABSOLUTE LYMPHOCYTE S {[id number]) Monocytes # 360 200 - 950 cells/uL [facility] Comment:{ABSOLUTE MONOCYTES {[id number]) Eosinophils # 203 15 - 500 cells/uL [facility] Comment:{ABSOLUTE EOSINOPHIL S {[id number]) Basophils # 30 0 - 200 cells/uL [facility] Comment:{ABSOLUTE BASOPHILS {[id number]) Neutrophils % 61.9 % [facility] Comment:{NEUTROPHILS {[id number]) Lymphocytes % 30.2 % [facility] Comment:{LYMPHOCYTES {[id number]) Monocytes % 4.8 % [facility] Comment:{MONOCYTES {[id number]) Eosinophils % 2.7 % [facility] Comment:{EOSINOPHILS {[id number]) Basophils % 0.4 % [facility] Comment:{BASOPHILS {[id number]) 08/15/2011 10:2 2 AM EDT 08/15/2011 5:01 PM EDT Narrative Resulting Agency Comment [id number] us Abel Fierro MD LAB SAME DAY RESULT Final Resul t Performing Organization Address City/[facility] Co de Phone Number [facility] [address] [place] [address] * ALANINE AMINOTRANSFERASE (ALT), SERUM (08/15/2011 10:22 AM EDT) ALT (SGPT) 25 6 - 40 U/L [facility] Comment:{ALT {[id number]) 08/15/2011 10:2 2 AM EDT 08/15/2011 5:01 PM EDT Narrative Resulting Agency Comment [id number] us Abel Fierro MD LAB SAME DAY RESULT Final Resul t Performing Organization Address City/[facility]/ZIP Co de Phone Number [facility] [address] [place] [address] * ASPARTATE AMINOTRANSFERASE (AST), SERUM (08/15/2011 10:22 AM EDT) AST (SGOT) 25 10 - 35 U/L [facility] Comment:{AST {[id number]) 08/15/2011 10:2 2 AM EDT 08/15/2011 5:01 PM EDT Narrative Resulting Agency Comment [id number] us Abel Fierro MD LAB SAME DAY RESULT Final Resul t [facility] [address] [place] [address] documented in this encounter Visit Diagnoses Diagnosis Rheumatoid arthritis(714.0) Rheumatoid arthritis documented in this encounter Care Teams It Recruiter Relationship Specialty Start Date End Date Alberto Pacheco [address] [place] [address] PCP - General 07/19/08 05/24/13 Charly Saxena [facility] [address] [place] [address] PCP - General Internal Medicine 05/25/13 07/16/17 Cheryl Calderon MD [facility] Medicine [address] [place] [address] PCP - General Internal Medicine 07/17/17 documented as of this encounter
--- OUTSIDE RECORDS SUMMARY | 2024-07-28 13:47 | XMS_ITS | Encounter Summary ---
Author Organization [facility] Address [address] [place] [address] Care Team Providers Care Driver Examiner Name Role Phone Alberto Pacheco Primary Care Provider [phone] Charly Saxena Primary Care Provider [phone] Cheryl Calderon MD Primary Care Provider [phone] Encounter Details Date Type Department Care Team (Late st Contact Info) Description 12/26/2010 Orders Only [facility] Rheumatology [address] [place] [address] Abel Fierro MD [address] [place] [address] Social History Tobacco Use Types Packs/Day Years [...] [facility] Comment:{WHITE BLOOD CELL CO UNT {[id number]) RBC 5.17(H) 3.80 - 5.10 Million/u L [facility] Comment:{RED BLOOD CELL COUN T {[id number]) Hemoglobin 15.0 11.7 - 15.5 g/dL [facility] Comment:{HEMOGLOBIN {[id number]) Hematocrit 46.0(H) 35.0 - 45.0 % [facility] Comment:{HEMATOCRIT {[id number]) MCV 89.1 80.0 - 100.0 fL [facility] Comment:{MCV {[id number]) MCH 29.0 27.0 - 33.0 pg [facility] Comment:{MCH {[id number]) MCHC 32.5 32.0 - 36.0 g/dL [facility] Comment:{MCHC {[id number]) RDW 16.1(H) 11.0 - 15.0 % [facility] Comment:{RDW {[id number]) PLT 300 140 - 400 Thousand/ uL [facility] Comment:{PLATELET COUNT {[id number]) MPV 7.6 7.5 - 11.5 fL [facility] Comment:{MPV {[id number]) Neutrophils # 7707 1500 - 7800 cells/uL [facility] Comment:{ABSOLUTE NEUTROPHIL S {[id number]) Lymphocytes # 2163 850 - 3900 cells/uL [facility] Comment:{ABSOLUTE LYMPHOCYTE S {[id number]) Monocytes # 452 200 - 950 cells/uL [facility] Comment:{ABSOLUTE MONOCYTES {[id number]) Eosinophils # 147 15 - 500 cells/uL [facility] Comment:{ABSOLUTE EOSINOPHIL S {[id number]) Basophils # 32 0 - 200 cells/uL [facility] Comment:{ABSOLUTE BASOPHILS {[id number]) Neutrophils % 73.4 % [facility] Comment:{NEUTROPHILS {[id number]) Lymphocytes % 20.6 % [facility] Comment:{LYMPHOCYTES {[id number]) Monocytes % 4.3 % [facility] Comment:{MONOCYTES {[id number]) Eosinophils % 1.4 % [facility] Comment:{EOSINOPHILS {[id number]) Basophils % 0.3 % [facility] Comment:{BASOPHILS {[id number]) 12/26/2010 9:49 AM EDT 12/27/2010 12:33 AM EDT Narrative Resulting Agency Comment [id number] us Abel Fierro MD LAB SAME DAY RESULT Final Resul t Performing Organization Address [facility] Co de Phone Number [facility] [address] [place] [address] * ALANINE AMINOTRANSFERASE (ALT), SERUM (12/26/2010 9:49 AM EDT) ALT (SGPT) 16 6 - 40 U/L [facility] Comment:{ALT {[id number]) 12/26/2010 9:49 AM EDT 12/27/2010 12:33 AM EDT Narrative Resulting Agency Comment [id number] us Abel Fierro MD LAB SAME DAY RESULT Final Resul t Performing Organization Address City/[facility] Co de Phone Number [facility] [address] [place] [address] * ASPARTATE AMINOTRANSFERASE (AST), SERUM (12/26/2010 9:49 AM EDT) AST (SGOT) 16 10 - 35 U/L [facility] Comment:{AST {[id number]) 12/26/2010 9:4 9 AM EDT 12/27/2010 12:33 AM EDT Narrative Resulting Agency Comment [id number] us Abel Fierro MD LAB SAME DAY RESULT Final Resul t Performing Organization Address [facility] Co de Phone Number [facility] [address] [place] [address] * CREATININE WITH GLOMERULAR FILTRATION RATE, ESTIMATED (EGFR) (12/26/2010 9:49 AM EDT) Creatinine 0.86 0.60 - 1.10 mg/dL [facility] Comment:{CREATININE {[id number]) GFR 76 > OR = 60 mL/min/1.7 3m2 [facility] Comment:{eGFR NON-AFR. AMERI CAN {[id number]) GFR () 88 > OR = 60 mL/min/1.7 3m2 [facility] Comment:{eGFR AMERIC AN {[id number]) 12/26/2010 9:49 AM EDT 12/27/2010 12:33 AM [...] RESULT Final Resul t Performing Organization Address City/[facility] Co de Phone Number [facility] [address] [place] [address] documented in this encounter Visit Diagnoses Diagnosis Rheumatoid arthritis(714.0) Rheumatoid arthritis documented in this encounter Care Teams Driver Examiner Relationship Specialty Start Date End Date Alberto Pacheco [address] [place] [address] PCP - General 07/19/08 05/24/13 Charly Saxena [facility] [address] [place] [address] PCP - General Internal Medicine 05/25/13 07/16/17 Cheryl Calderon MD [facility] Medicine [address] [place] [address] PCP - General Internal Medicine 07/17/17 documented as of this encounter
--- OUTSIDE RECORDS SUMMARY | 2024-07-28 13:47 | XMS_ITS | Encounter Summary ---
Author Organization [facility] Address [address] [place] [address] Phone Care Team Providers Care Funeral Director/Embalmer Name Role Phone Cash Fernandes MD Unavailable [phone] Keren Poon [facility] Primary Care Provid er Chavo Jack MD Unavailable Willi Wells MD Unavailable Jose Thakur MD Unavailable Dana Rucker MEDICAL PRACTICE ADMINISTRATOR Unavailable Jonathan Alvarez MD Unavailable [phone] Anival Borja MD Unavailable [phone] Lyndsay Reynoso MEDICAL PRACTICE ADMINISTRATOR Unavailable [phone] Gutierrez Pittman MD Unavailable [phone] Encounter Details Date Type Department Care Team (Late st Contact Info) Description 03/17/2024 Procedure Pass [facility], Ct Scan - [address] [address] Social History Tobacco Use Types Packs/Day Years [...] 06/06/2024 Procedure Pass [facility] [address] [place] [address] 07/30/2024 3:30 PM EDT Office Visit [facility] [address] [place] [address] [place] [address] Keren Poon, WANT AD SUPERVISOR 170 [facility], 2nd [place] [address] 08/04/2024 2:30 AM EDT Home Care Visit [facility] [address] [place] [address] Orlando Mckeon RN [address] [place] [address] 08/11/2024 2:00 AM EDT Home Care Visit [facility] [address] [place] [phone] Orlando Mckeon RN [address] [place] [address] 08/18/2024 1:30 AM EDT Home Care Visit [facility] [address] [place] [address] Orlando Mckeon RN 168 [place] [address] 08/25/2024 1:00 AM EDT Home Care Visit [facility] [address] [place] [phone] Orlando Mckeon RN 168 [place] [address] 09/01/2024 12:30 AM EDT Appointment [facility] 30 [place] [address] Orlando Mckeon RN 168 [place] [address] 09/18/2024 2:30 PM EDT Office Visit [facility] Infectious Diseases 22 [place] [address] Dana Rucker, MEDICAL PRACTICE ADMINISTRATOR [address] [address] 11/26/2024 3:30 PM EDT Office Visit [address] [place] [address] Keren Poon, ORI [address] [place] [address] 12/11/2024 2:00 PM EDT Appointment [facility], [facility] 30 [place] [address] Keren Poon, ORI [address] [place] [address] 01/07/2025 2:30 PM EDT Office Visit [facility] All[facility] [address] [place] [address] Jose Thakur MD 30 [place] [address] 06/03/2025 2:00 PM EST Office Visit [address] [place] [address] Keren Poon, ORI [address] [place] [address] [email or web address] documented as of this encounter Visit Diagnoses [...] documented as of this encounter Care Teams Funeral Director/Embalmer Relationship Specialty Start Date End Date Jerseyroldansotero Keren ORI Glaser [address] [place] [address], 2nd [place] [address] [email or web address] PCP - General Family Medicine 01/31/23 Cash Fernandes MD [address] [place] [address] [email or web address] Gastroenterology 08/23/20 Chavo Jack MD [address] [place] [address] Insurance Assigned Provider 08/03/23 05/04/24 Willi Wells MD [address] Vinayak 304_[place] [address] Rheumatology 02/04/24 Jose Thakur MD 30 [place] [address] Center Receptionist Pulmonary Disease 03/17/24 Dana Rucker FNP 15 [facility], 2nd [place] [address] [email or web address] Nurse Practitioner Infectious Diseases 05/21/24 Jonathan Alvarez MD [address] [place] [address], [address] [place] [address] [email or web address] Urology 05/14/23 Anival Borja MD [address] [place] [address], [address] [place] [address] Neurologist Neurology 01/04/23 Lyndsay Reynoso FNP [address] [place] [address] [email or web address] Nurse Practitioner Pain Medicine 05/27/22 Gutierrez Pittman MD [address] [place] [phone] Rrt Cardiology 05/27/24 documented as of this encounter Additional Source Comments The information contained in this document represents components of the legal health record. It is not the complete legal health record.[facility]
--- OUTSIDE RECORDS SUMMARY | 2024-07-28 13:47 | XMS_ITS | Encounter Summary ---
Author Organization [facility] Address 5 [place] [address] Care Team Providers Care Rug Dry Room Attendant Name Role Phone Alberto Pacheco Primary Care Provider [phone] Charly Saxena Primary Care Provider [phone] Cheyrl Calderon MD Primary Care Provider [phone] Encounter Details Date Type Department Care Team (Late st Contact Info) Description 01/23/2010 Orders Only [facility] Rheumatology [address] [place] [address] Abel Fierro MD 5 [place] [address] Social History Tobacco Use Types Packs/Day Years [...] RESULT Final Resul t Performing Organization Address City/[facility]/ZIP Co de Phone Number [facility] [address] [place] [address] * (ABNORMAL) C-REACTIVE PROTEIN (CRP), QUANTITATIVE, SERUM INFLAMMATION (01/23/2010) Pathologist [facility] C REACTIVE PROTEIN (CRP) 1.5(H) 0 - 0.7 MG/DL [facility] 01/23/2010 01/23/2010 9:1 6 PM EDT Abel Fierro MD LABORATORY Final Result Performing Organization Address City/[facility]/ZIP Co de Phone Number [facility] [address] [place] [address] * CREATININE WITH GLOMERULAR FILTRATION RATE, ESTIMATED [...] RESULT Final Resul t [facility] [address] [place] [address] * (ABNORMAL) CBC 5 PART DIFF (01/23/2010) [...] Final Resul t Performing Organization Address [facility] de Phone Number [facility] [address] [place] [address] * ASPARTATE AMINOTRANSFERASE (AST), SERUM (01/23/2010) AST (SGOT) 23 10 - 35 U/L [facility] 01/23/2010 01/23/2010 9:1 6 PM EDT us Abel Fierro MD LAB SAME DAY RESULT Final Resul t Performing Organization Address [facility] de Phone Number [facility] [address] [place] [address] * ALANINE AMINOTRANSFERASE (ALT), SERUM (01/23/2010) ALT (SGPT) 26 6 - 40 U/L [facility] 01/23/2010 01/23/2010 9:1 6 PM EDT us Abel Fierro MD LAB SAME DAY RESULT Final Resul t Performing Organization Address [facility] de Phone Number [facility] [address] [place] [address] documented in this encounter Visit Diagnoses Diagnosis Rheumatoid arthritis(714.0)- Primary Rheumatoid arthritis documented in this encounter Care Teams Rug Dry Room Attendant Relationship Specialty Start Date End Date Alberto Pacheco [address] [place] [address] PCP - General 07/19/08 05/24/13 Charly Saxena [facility] [address] [place] [address] PCP - General Internal Medicine 05/25/13 07/16/17 Cheryl Calderon MD [facility] Medicine [address] [place] [address] PCP - General Internal Medicine 07/17/17 documented as of this encounter
--- OUTSIDE RECORDS SUMMARY | 2024-07-28 13:47 | XMS_ITS | Encounter Summary ---
Author Organization [facility] Address 5 [place] [address] Care Team Providers Care Electronics Installer Name Role Phone Alberto Pacheco Primary Care Provider [phone] Charly Saxena Primary Care Provider [phone] Cheryl Calderon MD Primary Care Provider [phone] Encounter Details Date Type Department Care Team (Late st Contact Info) Description 05/13/2009 Orders Only [facility] Rheumatology [address] [place] [address] Abel Fierro MD 5 [place] [address] Social History Tobacco Use Types Packs/Day Years [...] MD LABORATORY Final Result [facility] [address] [place] [address] * SED RATE ESR (05/13/2009) ESR (ERYTHROCYTE SEDIMENTATION RATE) 19 0 - 30 MM/HR [facility] 05/13/2009 05/13/2009 8:0 1 PM EST us Abel Fierro MD LAB SAME DAY RESULT Final Resul t Performing Organization Address [facility] de Phone Number [facility] [address] [place] [address] * ALANINE AMINOTRANSFERASE (ALT), SERUM (05/13/2009) ALT (SGPT) 22 6 - 40 U/L [facility] 05/13/2009 05/13/2009 8:0 1 PM EST us Abel Fierro MD LAB SAME DAY RESULT Final Resul t Performing Organization Address [facility] Phone Number [facility] [address] [place] [address] * ASPARTATE AMINOTRANSFERASE (AST), SERUM (05/13/2009) AST (SGOT) 21 10 - 35 U/L [facility] 05/13/2009 05/13/2009 8:0 1 PM EST us Abel Fierro MD LAB SAME DAY RESULT Final Resul t Performing Organization Address [facility] Phone Number [facility] [address] [place] [address] * (ABNORMAL) CBC 5 PART DIFF (05/13/2009) [...] RESULT Final Resul t [facility] [address] [place] [address] documented in this encounter Visit Diagnoses Diagnosis Rheumatoid arthritis(714.0) Rheumatoid arthritis documented in this encounter Care Teams Electronics Installer Relationship Specialty Start Date End Date Alberto Pacheco [address] [place] [address] PCP - General 07/19/08 05/24/13 Charly Saxena [facility] [address] [place] [address] PCP - General Internal Medicine 05/25/13 07/16/17 Cheryl Calderon MD [facility] Adult Medicine [address] [place] [address] PCP - General Internal Medicine 07/17/17 documented as of this encounter
--- OUTSIDE RECORDS SUMMARY | 2024-07-28 13:47 | XMS_ITS | Encounter Summary ---
Author Organization [facility] Address 5 [place] [address] Care Team Providers Care Principal Quality Engineer Name Role Phone Alberto Pacheco Primary Care Provider [phone] Charly Saxena Primary Care Provider [phone] Cheryl Calderon MD Primary Care Provider [phone] Encounter Details Date Type Department Care Team (Late st Contact Info) Description 02/20/2011 Orders Only [facility] Rheumatology [address] [place] [address] Abel Fierro MD 5 [place] [address] Social History Tobacco Use Types Packs/Day Years [...] of this encounter Procedures * Due to [place] state law, [...] in this encounter Results * Due to [place] state law, this organization might not be sharing negative HIV tests. * CREATININE WITH GLOMERULAR FILTRATION RATE, ESTIMATED (EGFR) (02/20/2011 11:24 AM EDT) Creatinine 0.80 0.60 - 1.10 mg/dL [facility] Comment:{CREATININE {[id number]) GFR 82 > OR = 60 mL/min/1.7 3m2 [facility] Comment:{eGFR NON-AFR. AMERI CAN {[id number]) GFR () 96 > OR = 60 mL/min/1.7 3m2 [facility] Comment:{eGFR AMERIC AN {[id number]) 02/20/2011 11:2 4 AM EDT 02/20/2011 7:08 [...] needs for GFR calculation. Resulting Agency Comment [id number] us Abel Fierro MD LAB SAME DAY RESULT Final Resul t [facility] [address] [place] [address] * (ABNORMAL) CBC INCLUDES DIFFERENTIAL AND PLATELET COUNT (02/20/2011 11:24 AM EDT) WBC 7.8 3.8 - 10.8 Thousand/ uL [facility] Comment:{WHITE BLOOD CELL CO UNT {[id number]) RBC 5.43(H) 3.80 - 5.10 Million/u L [facility] Comment:{RED BLOOD CELL COUN T {[id number]) Hemoglobin 15.9(H) 11.7 - 15.5 g/dL [facility] Comment:{HEMOGLOBIN {[id number]) Hematocrit 48.3(H) 35.0 - 45.0 % [facility] Comment:{HEMATOCRIT {[id number]) MCV 89.0 80.0 - 100.0 fL [facility] Comment:{MCV {[id number]) MCH 29.4 27.0 - 33.0 pg [facility] Comment:{MCH {[id number]) MCHC 33.0 32.0 - 36.0 g/dL [facility] Comment:{MCHC {[id number]) RDW 14.3 11.0 - 15.0 % [facility] Comment:{RDW {[id number]) PLT 274 140 - 400 Thousand/ uL [facility] Comment:{PLATELET COUNT {[id number]) MPV 8.3 7.5 - 11.5 fL [facility] Comment:{MPV {[id number]) Neutrophils # 4930 1500 - 7800 cells/uL [facility] Comment:{ABSOLUTE NEUTROPHIL S {[id number]) Lymphocytes # 1919 850 - 3900 cells/uL [facility] Comment:{ABSOLUTE LYMPHOCYTE S {[id number]) Monocytes # 780 200 - 950 cells/uL [facility] Comment:{ABSOLUTE MONOCYTES {[id number]) Eosinophils # 125 15 - 500 cells/uL [facility] Comment:{ABSOLUTE EOSINOPHIL S {[id number]) Basophils # 47 0 - 200 cells/uL [facility] Comment:{ABSOLUTE BASOPHILS {[id number]) Neutrophils % 63.2 % [facility] Comment:{NEUTROPHILS {[id number]) Lymphocytes % 24.6 % [facility] Comment:{LYMPHOCYTES {[id number]) Monocytes % 10.0 % [facility] Comment:{MONOCYTES {[id number]) Eosinophils % 1.6 % [facility] Comment:{EOSINOPHILS {[id number]) Basophils % 0.6 % [facility] Comment:{BASOPHILS {[id number]) 02/20/2011 11:2 4 AM EDT 02/20/2011 7:08 PM EDT Narrative Resulting Agency Comment [id number] us Abel Fierro MD LAB SAME DAY RESULT Final Resul t Performing Organization Address City/[facility] Co de Phone Number [facility] [address] [place] [address] * ASPARTATE AMINOTRANSFERASE (AST), SERUM (02/20/2011 11:24 AM EDT) AST (SGOT) 23 10 - 35 U/L [facility] Comment:{AST {[id number]) 02/20/2011 11:2 4 AM EDT 02/20/2011 7:08 PM EDT Narrative Resulting Agency Comment [id number] us Abel Fierro MD LAB SAME DAY RESULT Final Resul t Performing Organization Address [facility] Co de Phone Number [facility] [address] [place] [address] * ALANINE AMINOTRANSFERASE (ALT), SERUM (02/20/2011 11:24 AM EDT) ALT (SGPT) 25 6 - 40 U/L [facility] Comment:{ALT {[id number]) 02/20/2011 11:2 4 AM EDT 02/20/2011 7:08 PM EDT Narrative Resulting Agency Comment [id number] us Abel Fierro MD LAB SAME DAY RESULT Final Resul t Performing Organization Address City/[facility] Co de Phone Number [facility] [address] [place] [address] documented in this encounter Visit Diagnoses Diagnosis Rheumatoid arthritis(714.0) Rheumatoid arthritis documented in this encounter Care Teams Principal Quality Engineer Relationship Specialty Start Date End Date Alberto Pacheco [address] [place] [address] PCP - General 07/19/08 05/24/13 Charly Saxena [facility] [address] [place] [address] PCP - General Internal Medicine 05/25/13 07/16/17 Cheryl Calderon MD [facility] Medicine [address] [place] [address] PCP - General Internal Medicine 07/17/17 documented as of this encounter
--- OUTSIDE RECORDS SUMMARY | 2024-07-28 13:47 | XMS_ITS | Encounter Summary ---
Author Organization [facility] Address [address] [place] [address] Care Team Providers Care Tube Cleaning Operator Name Role Phone Alberto Pacheco Primary Care Provider [phone] Charly Saxena Primary Care Provider [phone] Cheryl Calderon MD Primary Care Provider [phone] Reason for Visit * Reason Comments E-prescribing Refill Request Encounter Details Date Type Department Care Team (Late st Contact Info) Description 02/05/2012 Refill [facility] Rheumatology [address] [place] [address] Abel Fierro MD [address] [place] [address] E-prescribing Refill Request Social History Tobacco Use [...] on filedocumented in this encounter Care Teams Tube Cleaning Operator Relationship Specialty Start Date End Date Alberto Pacheco [address] [place] [phone] PCP - General 07/19/08 05/24/13 Charly Saxena [facility] [address] [place] [address] PCP - General Internal Medicine 05/25/13 07/16/17 Cheryl Calderon MD [facility] Medicine [address] [place] [address] PCP - General Internal Medicine 07/17/17 documented as of this encounter
--- OUTSIDE RECORDS SUMMARY | 2024-07-28 13:47 | XMS_ITS | Encounter Summary ---
Author Organization [facility] Address 5 [place] [address] Care Team Providers Care Mold Setter Name Role Phone Cehryl Calderon MD Primary Care Provider Encounter Details Date Type Department Care Team (Late st Contact Info) Description 02/16/2019 Orders Only [facility]. Rheumatology [address] [place] [phone] Melanie Aguirre MD 5 [place] [address] Social History Tobacco Use Types Packs/Day Years [...] approximately 13% higher for people identified as -Vietnamese. EGFR 93 > OR = 60 mL/min/1 [...] needs for GFR calculation. Resulting Agency Comment [id number] us Melanie Aguirre MD LABORATORY Final Result Performing Organization Address [facility]/ZIP Co de Phone Number [facility] [address] [place] [address] * (ABNORMAL) C-REACTIVE PROTEIN (CRP) - INFLAMMATION (02/16/2019 2:04 PM EDT) C reactive protein 79.2(H) <8.0 mg/L [facility] 02/16/2019 2:04 PM EDT 02/16/2019 11:45 PM EDT Narrative Resulting Agency Comment [id number] us Melanie Aguirre MD LABORATORY Final Result Performing Organization Address [facility] Co de Phone Number [facility] [address] [place] [address] * (ABNORMAL) CBC INCLUDES DIFFERENTIAL AND PLATELET [...] 11:45 PM EDT Narrative Resulting Agency Comment [id number] us Melanie Aguirre MD LAB SAME DAY RESULT Final Result Performing Organization Address City/[facility] Co de Phone Number [facility] [address] [place] [address] * (ABNORMAL) ERYTHROCYTE SEDIMENTATION RATE (ESR), [place] (02/16/2019 2:04 PM EDT) Sedimentation Rate [place] (ESR) 72(H) < OR = 30 mm/h [facility] 02/16/2019 2:04 PM EDT 02/16/2019 11:45 PM EDT Narrative Resulting Agency Comment [id number] us Melanie Aguirre MD LAB SAME DAY RESULT Final Result Performing Organization Address City/[facility]/ZIP Co de Phone Number [facility] [address] [place] [address] documented in this encounter Visit Diagnoses Diagnosis Rheumatoid arthritis involving multiple sites with positive rheumatoid factor (HCC) documented in this encounter Care Teams Mold Setter Relationship Specialty Start Date End Date Cheryl Calderon MD [facility] Adult Medicine [address] [place] [address] PCP - General Internal Medicine 07/17/17 documented as of this encounter
--- OUTSIDE RECORDS SUMMARY | 2024-07-28 13:47 | XMS_ITS | Encounter Summary ---
Author Organization [facility] Address [address] [place] [address] Phone Care Team Providers Care Molder Automobile Carpets Name Role Phone Cash Fernandes MD Unavailable [phone] Keren Poon [facility] Primary Care Provid er Willi Wells MD Unavailable Jose Thakur MD Unavailable [phone] Dana Rucker ENVIRONMENTAL SAFETY SPECIALIST Unavailable Jonathan Alvarez MD Unavailable [phone] Anival Borja MD Unavailable Lyndsay Reynoso ENVIRONMENTAL SAFETY SPECIALIST Unavailable [phone] Gutierrez Pittman MD Unavailable [phone] Encounter Details Date Type Department Care Team (Late st Contact Info) Description 05/13/2024 Procedure Pass [facility] Endoscopy Admitting Dept Virtual Department [address] [place] [address] Social History Tobacco Use Types Packs/Day Years [...] st Contact Info) Description 06/06/2024 Procedure Pass [address] [address] 07/30/2024 3:30 PM EDT Office Visit [facility] [address] [place] [address] [place] [address] Keren Poon, REHABILITATION MANAGER 170 [facility], 2nd [place] [address] 08/04/2024 2:30 AM EDT [facility] [address] [place] [address] Orlando Mckeon RN [address] [place] [address] [email or web address] 08/11/2024 2:00 AM EDT [facility] [address] [place] [address] Orlando Mckeon RN [address] [place] [address] [email or web address] 08/18/2024 1:30 AM EDT [facility] [address] [place] [address] Orlando Mckeon RN [address] [place] [address] 08/25/2024 1:00 AM EDT Home Care Visit [facility] [address] [place] [address] Orlando Mckeon RN [address] [place] [address] 09/01/2024 12:30 AM EDT Appointment [facility] [address] [place], [place] [phone] Orlando Mckeon RN [address] [place] [address] 09/18/2024 2:30 PM EDT Office Visit [facility] Infectious Diseases [address] [place] [address] Dana Rucker FNP [address] [address] 11/26/2024 3:30 PM EDT Office Visit [facility] [address] [place] [address] Keren Poon, REHABILITATION MANAGER [address] [address] 12/11/2024 2:00 PM EDT Appointment [facility] 30 [place] [address] Keren Poon, REHABILITATION MANAGER [address] [address] 01/07/2025 2:30 PM EDT Office Visit [facility], Allergy and Critical Care Medicine [address] [place] [id number] Jose Thakur MD 30 [place] [address] 06/03/2025 2:00 PM EST Office Visit [facility] [address] [place] [address] [place] [address] Keren Poon, ORI [address] [place] [address], [address] [place] [address] documented as of this encounter Visit Diagnoses [...] documented as of this encounter Care Teams Molder Automobile Carpets Relationship Specialty Start Date End Date Cleve Kerenelsie Glaser, ORI [address] [place] [address], [address] [place] [address] [place] [address] PCP - General Family Medicine 01/31/23 Cash Fernandes MD [address] [place] [address] Gastroenterology 08/23/20 Willi Wells MD [address] [place] [address] [place] [address] Rheumatology 02/04/24 Jose Thakur MD 30 [place] [address] It Risk And Assurance Manager Pulmonary Disease 03/17/24 Dana Rucker FNP 15 [facility], 2nd [place] [address] Nurse Practitioner Infectious Diseases 05/21/24 Jonathan Alvarez MD [address] [place] [address], [address] [place] [address] Urology 05/14/23 Anival Borja MD [address] [place] [address], [address] [place] [address] Neurologist Neurology 01/04/23 Lyndsay Reynoso FNP [address] [place] [address] [place] [address] [email or web address] Nurse Practitioner Pain Medicine 05/27/22 Gutierrez Pittman MD [address] [place] [address] Die Casting Supervisor Cardiology 05/27/24 documented as of this encounter Additional Source Comments The information contained in this document represents components of the legal health record. It is not the complete legal health record.[facility]
--- OUTSIDE RECORDS SUMMARY | 2024-07-28 13:47 | XMS_ITS | Encounter Summary ---
Author Organization [facility] Address [address] [place] [address] Care Team Providers Care Hard Metals Hand Engraver Name Role Phone Alberto Pacheco Primary Care Provider [phone] Charly Saxena Primary Care Provider [phone] Cheryl Calderon MD Primary Care Provider [phone] Encounter Details Date Type Department Care Team (Late st Contact Info) Description 10/18/2011 Orders Only [facility] Rheumatology [address] [place] [address] Abel Fierro MD [address] [place] [address] Social History Tobacco Use Types Packs/Day Years [...] - 1.05 mg/dL [facility] Comment: {CREATININE {[id number]) For patients >49 years of age, the reference limit for Creatinine is approximately 13% higher for people identified as -Belizean. GFR 80 > OR = 60 mL/min/1. 73m2 [facility] Comment:{eGFR NON-AFR. AMERI CAN {[id number]) GFR () 93 > OR = 60 mL/min/1. 73m2 [facility] Comment:{eGFR AMERIC AN {[id number]) 10/18/2011 4:28 PM EDT 10/18/2011 8:48 PM [...] needs for GFR calculation. Resulting Agency Comment [id number] us Abel Fierro MD LAB SAME DAY RESULT Final Resul t [facility] [address] [place] [address] * ALANINE AMINOTRANSFERASE (ALT), SERUM (10/18/2011 4:28 PM EDT) ALT (SGPT) 24 6 - 40 U/L [facility] Comment:{ALT {[id number]) 10/18/2011 4:28 PM EDT 10/18/2011 8:48 PM EDT Narrative Resulting Agency Comment [id number] Abel Fierro MD LAB SAME DAY RESULT Final Resul t Performing Organization Address City/[facility] Co de Phone Number [facility] [address] [place] [address] * ASPARTATE AMINOTRANSFERASE (AST), SERUM (10/18/2011 4:28 PM EDT) Pathologist [facility] AST (SGOT) 27 10 - 35 U/L [facility] Comment:{AST {[id number]) 10/18/2011 4:28 PM EDT 10/18/2011 8:48 PM EDT Narrative Resulting Agency Comment [id number] Abel Fierro MD LAB SAME DAY RESULT Final Resul t Performing Organization Address [facility] de Phone Number [facility] [address] [place] [address] * (ABNORMAL) CBC INCLUDES DIFFERENTIAL AND PLATELET COUNT (10/18/2011 4:28 PM EDT) Pathologist [facility] WBC 7.2 3.8 - 10.8 Thousand/ uL [facility] Comment:{WHITE BLOOD CELL CO UNT {[id number]) RBC 5.34(H) 3.80 - 5.10 Million/u L [facility] Comment:{RED BLOOD CELL COUN T {[id number]) Hemoglobin 15.0 11.7 - 15.5 g/dL [facility] Comment:{HEMOGLOBIN {[id number]) Hematocrit 46.3(H) 35.0 - 45.0 % [facility] Comment:{HEMATOCRIT {[id number]) MCV 86.6 80.0 - 100.0 fL [facility] Comment:{MCV {[id number]) MCH 28.1 27.0 - 33.0 pg [facility] Comment:{MCH {[id number]) MCHC 32.5 32.0 - 36.0 g/dL [facility] Comment:{MCHC {[id number]) RDW 14.4 11.0 - 15.0 % [facility] Comment:{RDW {[id number]) PLT 254 140 - 400 Thousand/ uL [facility] Comment:{PLATELET COUNT {[id number]) MPV 8.4 7.5 - 11.5 fL [facility] Comment:{MPV {[id number]) Neutrophils # 3226 1500 - 7800 cells/uL [facility] Comment:{ABSOLUTE NEUTROPHIL S {[id number]) Lymphocytes # 2988 850 - 3900 cells/uL [facility] Comment:{ABSOLUTE LYMPHOCYTE S {[id number]) Monocytes # 893 200 - 950 cells/uL [facility] Comment:{ABSOLUTE MONOCYTES {[id number]) Eosinophils # 65 15 - 500 cells/uL [facility] Comment:{ABSOLUTE EOSINOPHIL S {[id number]) Basophils # 29 0 - 200 cells/uL [facility] Comment:{ABSOLUTE BASOPHILS {[id number]) Neutrophils % 44.8 % [facility] Comment:{NEUTROPHILS {[id number]) Lymphocytes % 41.5 % [facility] Comment:{LYMPHOCYTES {[id number]) Monocytes % 12.4 % [facility] Comment:{MONOCYTES {[id number]) Eosinophils % 0.9 % [facility] Comment:{EOSINOPHILS {[id number]) Basophils % 0.4 % [facility] Comment:{BASOPHILS {[id number]) 10/18/2011 4:28 PM EDT 10/18/2011 8:48 PM EDT Narrative Resulting Agency Comment [id number] us Abel Fierro MD LAB SAME DAY RESULT Final Resul t [facility] [address] [place] [address] documented in this encounter Visit Diagnoses Diagnosis Rheumatoid arthritis(714.0) Rheumatoid arthritis documented in this encounter Care Teams Hard Metals Hand Engraver Relationship Specialty Start Date End Date Alberto Pacheco [address] [place] [address] PCP - General 07/19/08 05/24/13 Charly Saxena [facility] [address] [place] [address] PCP - General Internal Medicine 05/25/13 07/16/17 Cheryl Calderon MD [facility] Adult Medicine [address] [place] [address] PCP - General Internal Medicine 07/17/17 documented as of this encounter
--- OUTSIDE RECORDS SUMMARY | 2024-07-28 13:47 | XMS_ITS | Encounter Summary ---
Author Organization [facility] Address [address] [place] [address] Care Team Providers Care Control Engineer Name Role Phone Alberto Pacheco Primary Care Provider [phone] Charly Saxena Primary Care Provider [phone] Cheryl Calderon MD Primary Care Provider [phone] Encounter Details Date Type Department Care Team (Late st Contact Info) Description 04/18/2012 Orders Only [facility] Rheumatology [address] [place] [address] Abel Fierro MD [address] [place] [address] Social History Tobacco Use Types Packs/Day Years [...] DIAGNOSTICS Comment:{SED RATE BY MODIFIE D WESTERGREN {[id number]) 04/18/2012 1:37 PM EST 04/18/2012 11:16 PM EST Narrative Resulting Agency Comment [id number] us Abel Fierro MD LAB SAME DAY RESULT Final Resul t Performing Organization Address City/State/[facility] Co de Phone Number [facility] [address] [place] [address] * (ABNORMAL) C-REACTIVE PROTEIN (CRP) - INFLAMMATION (04/18/2012 1:37 PM EST) C reactive protein 1.36(H) <0.80 mg/dL [facility] Comment: {C-REACTIVE PROTEIN {[id number]) Please be advised that patients taking Carboxypenicillins may exhibit falsely decreased C-Reactive Protein levels due to an analytical interference in this assay. 04/18/2012 1:37 PM EST 04/18/2012 11:16 PM EST Narrative Resulting Agency Comment [id number] us Abel Fierro MD LABORATORY Final Result Performing Organization Address [facility] Co de Phone Number [facility] [address] [place] [address] * CREATININE WITH GLOMERULAR FILTRATION RATE, ESTIMATED (EGFR) (04/18/2012 1:37 PM EST) Creatinine 0.77 0.50 - 1.05 mg/dL [facility] Comment: {CREATININE {[id number]) For patients >49 years of age, the reference limit for Creatinine is approximately 13% higher for people identified as -Moroccan. GFR 86 > OR = 60 mL/min/1. 73m2 [facility] Comment:{eGFR NON-AFR. AMERI CAN {[id number]) GFR () 99 > OR = 60 mL/min/1. 73m2 [facility] Comment:{eGFR AMERIC AN {[id number]) 04/18/2012 1:37 PM EST 04/18/2012 11:16 PM [...] needs for GFR calculation. Resulting Agency Comment [id number] us Abel Fierro MD LAB SAME DAY RESULT Final Resul t Performing Organization Address City/[facility] Co de Phone Number [facility] [address] [place] [address] * (ABNORMAL) CBC INCLUDES DIFFERENTIAL AND PLATELET COUNT (04/18/2012 1:37 PM EST) WBC 8.3 3.8 - 10.8 Thousand/ uL [facility] Comment:{WHITE BLOOD CELL CO UNT {[id number]) RBC 5.25(H) 3.80 - 5.10 Million/u L [facility] Comment:{RED BLOOD CELL COUN T {[id number]) Hemoglobin 15.1 11.7 - 15.5 g/dL [facility] Comment:{HEMOGLOBIN {[id number]) Hematocrit 46.5(H) 35.0 - 45.0 % [facility] Comment:{HEMATOCRIT {[id number]) MCV 88.5 80.0 - 100.0 fL [facility] Comment:{MCV {[id number]) MCH 28.7 27.0 - 33.0 pg [facility] Comment:{MCH {[id number]) MCHC 32.5 32.0 - 36.0 g/dL [facility] Comment:{MCHC {[id number]) RDW 13.4 11.0 - 15.0 % [facility] Comment:{RDW {[id number]) PLT 318 140 - 400 Thousand/ uL [facility] Comment:{PLATELET COUNT {[id number]) MPV 8.2 7.5 - 11.5 fL [facility] Comment:{MPV {[id number]) Neutrophils # 4681 1500 - 7800 cells/uL [facility] Comment:{ABSOLUTE NEUTROPHIL S {[id number]) Lymphocytes # 2598 850 - 3900 cells/uL [facility] Comment:{ABSOLUTE LYMPHOCYTE S {[id number]) Monocytes # 805 200 - 950 cells/uL [facility] Comment:{ABSOLUTE MONOCYTES {[id number]) Eosinophils # 199 15 - 500 cells/uL [facility] Comment:{ABSOLUTE EOSINOPHIL S {[id number]) Basophils # 17 0 - 200 cells/uL [facility] Comment:{ABSOLUTE BASOPHILS {[id number]) Neutrophils % 56.4 % [facility] Comment:{NEUTROPHILS {[id number]) Lymphocytes % 31.3 % [facility] Comment:{LYMPHOCYTES {[id number]) Monocytes % 9.7 % [facility] Comment:{MONOCYTES {[id number]) Eosinophils % 2.4 % [facility] Comment:{EOSINOPHILS {[id number]) Basophils % 0.2 % [facility] Comment:{BASOPHILS {[id number]) 04/18/2012 1:37 PM EST 04/18/2012 11:16 PM EST Narrative Resulting Agency Comment [id number] us Abel Fierro MD LAB SAME DAY RESULT Final Resul t Performing Organization Address City/[facility] Co de Phone Number [facility] [address] [place] [address] * ASPARTATE AMINOTRANSFERASE (AST), SERUM (04/18/2012 1:37 PM EST) AST (SGOT) 18 10 - 35 U/L [facility] Comment:{AST {[id number]) 04/18/2012 1:37 PM EST 04/18/2012 11:16 PM EST Narrative Resulting Agency Comment [id number] us Abel Fierro MD LAB SAME DAY RESULT Final Resul t Performing Organization Address [facility] de Phone Number [facility] [address] [place] [address] * ALANINE AMINOTRANSFERASE (ALT), SERUM (04/18/2012 1:37 PM EST) ALT (SGPT) 17 6 - 40 U/L [facility] Comment:{ALT {[id number]) 04/18/2012 1:37 PM EST 04/18/2012 11:16 PM EST Narrative Resulting Agency Comment [id number] us Abel Fierro MD LAB SAME DAY RESULT Final Resul t Performing Organization Address City/[facility] de Phone Number [facility] [address] [place] [address] documented in this encounter Visit Diagnoses Diagnosis Rheumatoid arthritis(714.0) Rheumatoid arthritis documented in this encounter Care Teams Control Engineer Relationship Specialty Start Date End Date Alberto Pacheco [address] [place] [address] PCP - General 07/19/08 05/24/13 Charly Saxena [facility] [address] [place] [address] PCP - General Internal Medicine 05/25/13 07/16/17 Cheryl Calderon MD [address] [address] PCP - General Internal Medicine 07/17/17 documented as of this encounter
--- OUTSIDE RECORDS SUMMARY | 2024-07-28 13:47 | XMS_ITS | Encounter Summary ---
Author Organization [facility] Address [address] [place] [address] Care Team Providers Care Bomb Squad Commander Name Role Phone Alberto Pacheco Primary Care Provider [phone] Charly Saxena Primary Care Provider [phone] Cheryl Calderon MD Primary Care Provider [phone] Encounter Details Date Type Department Care Team (Late st Contact Info) Description 12/06/2009 Orders Only [facility] Rheumatology [address] [place] [address] Abel Fierro MD [address] [place] [address] Social History Tobacco Use Types Packs/Day Years [...] RESULT Final Resul t Performing Organization Address City/State/[facility] Co de Phone Number [facility] [address] [place] [address] * (ABNORMAL) CBC 5 PART DIFF (12/06/2009) [...] RESULT Final Resul t Performing Organization Address [facility] de Phone Number [facility] [address] [place] [address] * ASPARTATE AMINOTRANSFERASE (AST), SERUM (12/06/2009) AST (SGOT) 18 10 - 35 U/L [facility] 12/06/2009 12/06/2009 9:4 5 PM EDT Abel Fierro MD LAB SAME DAY RESULT Final Resul t Performing Organization Address [facility] de Phone Number [facility] [address] [place] [address] * ALANINE AMINOTRANSFERASE (ALT), SERUM (12/06/2009) ALT (SGPT) 23 6 - 40 U/L [facility] 12/06/2009 12/06/2009 9:4 5 PM EDT Abel Fierro MD LAB SAME DAY RESULT Final Resul t Performing Organization Address [facility] de Phone Number [facility] [address] [place] [address] documented in this encounter Visit Diagnoses Diagnosis Rheumatoid arthritis(714.0) Rheumatoid arthritis documented in this encounter Care Teams Bomb Squad Commander Relationship Specialty Start Date End Date Alberto Pacheco [address] [place] [address] PCP - General 07/19/08 05/24/13 Charly Saxena [facility] [address] [place] [address] PCP - General Internal Medicine 05/25/13 07/16/17 Cheryl Calderon MD [facility] [address] [place] [address] PCP - General Internal Medicine 07/17/17 documented as of this encounter
--- OUTSIDE RECORDS SUMMARY | 2024-07-28 13:47 | XMS_ITS | Encounter Summary ---
Author Organization [facility] Address [address] [place] [address] Care Team Providers Care Haulage Engine Operator Name Role Phone Alberto Pacheco Primary Care Provider [phone] Charly Saxena Primary Care Provider [phone] Cheryl Calderon MD Primary Care Provider [phone] Encounter Details Date Type Department Care Team (Late st Contact Info) Description 04/14/2010 Orders Only [facility] Rheumatology [address] [place] [address] Deepti Estes GNP Social History Tobacco Use [...] of this encounter Procedures * Due to [place] state law, this organization might not be [...] in this encounter Results * Due to [place] state law, this organization might not be [...] precise needs for GFR calculation. Deepti Estes [facility] LAB SAME DAY RESULT Elana l Result Performing Organization Address [facility] de Phone Number [facility] [address] [place] [address] * ALANINE AMINOTRANSFERASE (ALT), SERUM (04/14/2010) ALT (SGPT) 28 6 - 40 U/L [facility] 04/14/2010 04/14/2010 11: 35 PM EST Deepti Estes [facility] LAB SAME DAY RESULT Elana l Result Performing Organization Address [facility] Co de Phone Number [facility] [address] [place] [address] * ASPARTATE AMINOTRANSFERASE (AST), SERUM (04/14/2010) AST (SGOT) 24 10 - 35 U/L [facility] 04/14/2010 04/14/2010 11: 35 PM EST Deepti Estes [facility] LAB SAME DAY RESULT Elana l Result [facility] [address] [place] [address] * (ABNORMAL) CBC 5 PART DIFF (04/14/2010) [...] 04/14/2010 11: 35 PM EST Deepti Estes [facility] LAB SAME DAY RESULT Elana l Result [facility] [address] [place] [address] documented in this encounter Visit Diagnoses Diagnosis Rheumatoid arthritis(714.0) Rheumatoid arthritis documented in this encounter Care Teams Haulage Engine Operator Relationship Specialty Start Date End Date Alberto Pacheco [address] [place] [address] PCP - General 07/19/08 05/24/13 Charly Saxena [facility] [place] [address] PCP - General Internal Medicine 05/25/13 07/16/17 Cheryl Calderon MD [facility] Adult Medicine [address] [place] [address] PCP - General Internal Medicine 07/17/17 documented as of this encounter
--- OUTSIDE RECORDS SUMMARY | 2024-07-28 13:47 | XMS_ITS | Encounter Summary ---
Author Organization [facility] Address [address] [place] [address] Care Team Providers Care Lining Presser Name Role Phone Alberto Pacheco Primary Care Provider [phone] Charly Saxena Primary Care Provider [phone] Cheryl Calderon MD Primary Care Provider [phone] Encounter Details Date Type Department Care Team (Late st Contact Info) Description 05/29/2010 Orders Only [facility] Rheumatology [address] [place] [address] Abel Fierro MD [address] [place] [address] Social History Tobacco Use Types Packs/Day Years [...] t Performing Organization Address City/[facility] Co de Phone Number [facility] [address] [place] [address] * C-REACTIVE PROTEIN (CRP), QUANTITATIVE, SERUM INFLAMMATION (05/29/2010) Pathologist [facility] C REACTIVE PROTEIN (CRP) 0.2 0 - 0.7 MG/DL [facility] 05/29/2010 05/29/2010 8:2 8 PM EST Abel Fierro MD LABORATORY Final Result Performing Organization Address [facility] Co de Phone Number [facility] [address] [place] [address] * CREATININE WITH GLOMERULAR FILTRATION RATE, ESTIMATED [...] RESULT Final Resul t [facility] [address] [place] [address] * (ABNORMAL) CBC 5 PART DIFF (05/29/2010) [...] t Performing Organization Address City/[facility] Co de Phone Number [facility] [address] [place] [address] * ASPARTATE AMINOTRANSFERASE (AST), SERUM (05/29/2010) AST (SGOT) 21 10 - 35 U/L [facility] 05/29/2010 05/29/2010 8:2 8 PM EST us Abel Fierro MD LAB SAME DAY RESULT Final Resul t Performing Organization Address [facility] Co de Phone Number [facility] [address] [place] [address] * ALANINE AMINOTRANSFERASE (ALT), SERUM (05/29/2010) ALT (SGPT) 27 6 - 40 U/L [facility] 05/29/2010 05/29/2010 8:2 8 PM EST us Abel Fierro MD LAB SAME DAY RESULT Final Resul t Performing Organization Address [facility] de Phone Number [facility] [address] [place] [address] documented in this encounter Visit Diagnoses Diagnosis Rheumatoid arthritis(714.0) Rheumatoid arthritis documented in this encounter Care Teams Lining Presser Relationship Specialty Start Date End Date Alberto Pacheco [address] [place] [address] PCP - General 07/19/08 05/24/13 Charly Saxena [facility] Replaced by [facility] [place] [address] PCP - General Internal Medicine 05/25/13 07/16/17 Cheryl Calderon MD [facility] [address] [place] [address] PCP - General Internal Medicine 07/17/17 documented as of this encounter
[2024-07-28 14:55] LABS: Erythrocyte Sedimentation Rate 7 MM/HR (0-20)
[2024-08-01 23:34] LABS: Absolute CD4 Count 929 cells/uL (490-1740); Absolute CD8 Count 178 cells/uL (180-1170); Absolute Lymphocytes 1340 cells/uL (850-3900); CD4 CD8 Ratio 5.22 (0.86-5.00); Percent CD4 Cells 69 % (30-61); Percent CD8 Cells 13 % (12-42)
== END 2024-07-28 11:20 | disposition home or self-care (01) ==
LOC: HO.10HDL 11:19
PROVIDERS: Visit Provider Student in an Organized Health Care Education/Training Program
DX: M05.79 Rheumatoid arthritis with rheumatoid factor of multiple sites without organ or systems involvement (principal); M70.51 Other bursitis of knee, right knee; M70.52 Other bursitis of knee, left knee; Z51.81 Encounter for therapeutic drug level monitoring; Z79.620 Long term (current) use of immunosuppressive biologic; Z79.52 Long term (current) use of systemic steroids
CPT/HCPCS: 20610; 36415; 80053; 85025; 85652; 86140; 86360; 99212; J3300

== ENCOUNTER 2024-07-31 09:46 | Outpatient (AMB) | payer MEDICARE, BC, SELFPAY ==
--- NOTE | 2024-07-31 09:49 | A.OFFVIS_ITS ---
Vital Signs 07/31/24 09:51 Height 5 ft 6 in Weight 165 lb BMI 26.6 BP 160/98 H Blood Pressure Location Lt brachial Position Sitting Respiration 16 Pulse 77 Pulse Source Pulse Oximeter Pulse Oximetry (%) 96 Oxygen Delivery Method Room Air Intake Visit Reasons: 1 month Trigger point inj Serology Technician Required: No Extrusion Supervisor: Extrusion Supervisor Present Accompanied by: Julito Tirado Allergies codeine Allergy (Mild, Verified 07/31/24 09:53) Paleness Gold Salts Allergy (Mild, Verified 07/31/24 09:53) Rash Sulfa (Sulfonamide Antibiotics) Allergy (Mild, Verified 07/31/24 09:53) Swelling Medication List - Last Reconciled 07/31/24 by Shayy Antunez LPN alendronate 70 mg PO QWEEK apixaban (Eliquis) 5 mg PO BID ascorbic acid (vitamin C) mg PO biotin 1 mg PO DAILY carvedilol 12.5 mg PO BID cholecalciferol (vitamin D3) 10 mcg PO DAILY cyclobenzaprine 5 mg PO TID PRN escitalopram oxalate 10 mg PO DAILY estradiol 0.01%(0.1mg/gram) grams vaginal NEEDED PRN fluticasone propionate 50 mcg/actuation 1 spray intranasal DAILY folic acid 1 mg PO DAILY furosemide mg PO levothyroxine 88 mcg PO DAILY lorazepam 0.5 mg PO Q4H PRN losartan 25 mg PO DAILY methenamine hippurate 1 g PO BID methotrexate sodium 15 mg (6 x 2.5 mg) PO QWEEK ondansetron 4 mg PO NEEDED oxybutynin chloride ER 10 mg PO DAILY potassium chloride ER 20 mEq PO BID prednisone 2.5 mg PO DAILY rituximab (Rituxan) 1,000 mg (100 mL) IV [id number] sennosides 8.6 mg PO BEDTIME sucralfate 1 g PO QID vancomycin mg PO HPI HPI 1 month Trigger point inj: Details: History of Present Illness The patient is a 69-year-old female presenting with a follow-up visit regarding her shoulder pain. Initially isolated to one shoulder, her pain has evolved to affect both sides and may involve nerve irritation or joint stenosis. Such conditions may lead to secondary muscle tension. There was no inciting event reported, and the nature of pain is described by the patient as originating in the muscle. The pain has been affecting her daily functioning, indicating a chronic issue. Previous explanations during assessment indicated these symptoms might stem from deeper issues, possibly involving nerves or joints. Pain Description - Initial pain started in one shoulder and now affects both. - Pain described as muscle-like in quality. - Origin may involve nerve irritation or joint stenosis. - Pain intensity consistent and impacts daily activities. - Exacerbated by localized irritation; relieved temporarily by addressing underlying issues. Physical Exam - Trigger points palpated and identified Pain Management - Affect: The pain affects the patient's functional activities and daily living. - Analgesia: Evaluation and potential for bilateral trigger point injections. - Adverse Effects: Not explicitly discussed. - Activities of Daily Living: Pain currently impacts patient's daily functioning. - Aberrant Drug Related Behaviors: None reported in the conversation. [facility], [facility] Medical History Anxiety and depression Lacunar infarction Diverticulitis Diverticulosis Endometriosis Schatzki's ring Drug-induced lupus erythematosus Encounter for testing for latent tuberculosis infection Afib Osteopenia of multiple sites Rheumatoid arthritis involving multiple sites with positive rheumatoid factor Vitamin D deficiency Primary osteoarthritis of both knees Surgical History H/O unilateral oophorectomy H/O cataract extraction History of bladder suspension procedure H/O elbow replacement H/O tubal ligation History of cholecystectomy History of ankle surgery H/O hand surgery Family History Mother Diabetes Sister Diabetes Pancreatic cancer Father Pancreatic cancer Seizures Social History Household Members: Spouse Alcohol intake: never Patient Tobacco Use Status: Never used Tobacco Current occupational status: disabled Physical Exam Vital Signs: Last Vital Signs Pulse 77 07/31/24 09:51 Resp 16 07/31/24 09:51 BP 160/98 H 07/31/24 09:51 Pulse Ox 96 07/31/24 09:51 Oxygen Delivery Method Room Air 07/31/24 09:51 BMI result Body Mass Index 26.6 Office Procedures Injection Trigger Point Multi Pre-procedure diagnosis: Myofascial pain. Post-procedure diagnosis: Myofascial pain. Site and number of trigger points: Bilateral cervicalis, occipitalis, trapezius Solution: Total volume administered 15 ml (ropivacaine 0.25%). The procedure, its benefits, and its risks were explained to the patient and all questions were answered. Prior to the start of the procedure, a ?time out? was performed to confirm correct patient, procedure, and laterality. Trigger points were identified by manual palpation and marked. The skin was cleaned with Chloraprep. A 1.5 inch 25 G needle was used. Each of the trigger points were approximated and elevated in the direction away from the body. Dry needling then took place for five seconds. Approximately 0.5 ml to 1 ml of injectate was delivered to the trigger point followed by dry needling for five seconds. This process was repeated at each trigger point site. The patient tolerated the procedure well. The patient tolerated the procedure well, without complication. The patient denied any numbness, paresthesias, or weakness. Post-procedure vitals were recorded as part of the nursing discharge note in electronic medical record. Following a period of observation, the patient was discharged in stable condition with written discharge instructions. Assessment & Plan Assessment & Plan (1) Myofascial pain syndrome, cervical: Code(s): M79.18 - Myalgia, other site Category: Medical Plan Plan Treatment during this visit included discussion on and administration of trigger point injections for bilateral shoulder pain, suspected to arise from MPS due to nerve irritation or joint stenosis. The patient was advised on treatment sessions due to insurance constraints on simultaneous bilateral injections. Moreover, the patient was briefed on the need for these interventions and agreed to proceed as outlined, with a follow-up appointment scheduled in one month to evaluate the efficacy of the initial treatment. Patient was informed and verbally consented to the use of an ambient scribe for clinic note documentation during this visit. Discussion Notes I discussed with the patient the likely diagnosis of pain being due to my ofascial syndrome secondary to nerve irritation or joint stenosis, and explained the plan for managing the symptoms through trigger point injections. We explored benefits such as relieving muscle tension, risks including potential temporary discomfort post-injection, and the logistical need to stagger injections due to insurance requirements. The patient consented to this plan, understanding the p rocedural and insurance-related aspects, and is scheduled for follow-up in one month for further assessment. Patient Instructions - Follow-up in one month for a reassessment of shoulder pain. - Be mindful of activity levels to avoid exacerbating shoulder pain. - Monitor pain intensity and note any changes or new symptoms. - Prepare for trigger point injections, understanding that they will be ad ministered in separate sessions. - Contact the office if the pain worsens or other concerns arise. Coding Level of Care Code Procedure Only Diagnoses Myofascial pain syndrome, cervical M79.18
[2024-07-31 09:51] VITALS: BP 160/98; PULSE 77; RESP 16; O2SAT 96; BMI 26.6
--- OUTSIDE RECORDS SUMMARY | 2024-07-31 10:52 | XMS_ITS | Encounter Summary ---
Author Organization [facility] Address [address] [place] [address] Care Team Providers Care News Videotape Editor Name Role Phone Charly Saxena Primary Care Provider [phone] Cheryl Calderon MD Primary Care Provider [phone] Encounter Details Date Type Department Care Team (Late st Contact Info) Description 05/25/2013 Orders Only [facility] Rheumatology [address] [place] [address] Abel Fierro MD [address] [place] [address] Social History Tobacco Use Types Packs/Day Years [...] <0.80 mg/dL [facility] Comment: {C-REACTIVE PROTEIN {[id number]) Please be advised that patients taking Carboxypenicillins may exhibit falsely decreased C-Reactive Protein levels due to an analytical interference in this assay. 05/25/2013 3:30 PM EST 05/25/2013 6:52 PM EST Narrative Resulting Agency Comment [id number] us Abel Fierro MD LABORATORY Final Result Performing Organization Address [facility] de Phone Number [facility] [address] [place] [address] * (ABNORMAL) ERYTHROCYTE SEDIMENTATION RATE (ESR), SHAJIREN (05/25/2013 3:30 PM EST) Sedimentation Rate [place] (ESR) 32(H) < OR = 30 mm/h [facility] Comment:{SED RATE BY MODIFIE D KUNAL {[id number]) 05/25/2013 3:30 PM EST 05/25/2013 6:52 PM EST Narrative Resulting Agency Comment [id number] us Abel Fierro MD LAB SAME DAY RESULT Final Resul t Performing Organization Address [facility] de Phone Number [facility] [address] [place] [address] documented in this encounter Visit Diagnoses Diagnosis Rheumatoid arthritis(714.0) Rheumatoid arthritis documented in this encounter Care Teams News Videotape Editor Relationship Specialty Start Date End Date Charly Saxena [facility] [place], [place] [id number] PCP - General Internal Medicine 05/25/13 07/16/17 Cheryl Calderon MD [facility] Adult Medicine [address] [place] [address] [place] [address] PCP - General Internal Medicine 07/17/17 documented as of this encounter
--- OUTSIDE RECORDS SUMMARY | 2024-07-31 10:52 | XMS_ITS | Encounter Summary ---
Author Organization [facility] Address [address] [place] [address] Phone Care Team Providers Care Distribution Collection Operator Name Role Phone Cash Fernandes MD Unavailable [phone] Seven Menchaca MD Unavailable [phone] Chavo Jack MD Primary Care Provider Keren Poon [facility] Primary Care Provid er Chavo Jack MD Unavailable Willi Wells MD Unavailable Jose Thakur MD Unavailable Dana Rucker RESOLUTION AGENT Unavailable [phone] Jontahan Alvarez MD Unavailable [phone] Anival Borja MD Unavailable Lyndsay Reynoso RESOLUTION AGENT Unavailable [phone] Gutierrez Pittman MD Unavailable [phone] Encounter Details Date Type Department Care Team (Late st Contact Info) Description 01/08/2023 Procedure Pass [facility] Endoscopy Admitting Dept Virtual Department [address] [place] [address] Social History Tobacco Use Types Packs/Day Years [...] st Contact Info) Description 06/06/2024 Procedure Pass [facility], [address] [address] 08/04/2024 2:30 AM EDT Home Care Visit [facility] [address] [place] [phone] Orlando Mckeon RN [address] [place] [address] [email or web address] 08/11/2024 2:00 AM EDT [facility] [address] [place] [phone] Orlando Mckeon RN [address] [place] [address] [email or web address] 08/18/2024 1:30 AM EDT Home Care Visit [facility] [address] [place] [phone] Orlando Mckeon RN [address] [place] [address] [email or web address] 08/25/2024 1:00 AM EDT Home Care Visit [facility] [address] [place] [phone] Orlando Mckeon RN [address] [place] [address] [email or web address] 09/01/2024 12:30 AM EDT [facility] [address] [place] [phone] Orlando Mckeon RN [address] [place] [address] [email or web address] 09/18/2024 2:30 PM EDT Office Visit [facility] Infectious Diseases [address] [place] [address] Dana Rucker, DIVYA 15 [facility], [address] [place] [address] 11/26/2024 3:30 PM EDT Office Visit [address] [place] [address] Keren Poon CNP [address] [place] [address] 12/11/2024 2:00 PM EDT Appointment [facility] [address] [place] [address] Keren Poon, ORI [address] [place] [address] 01/07/2025 2:30 PM EDT Office Visit [facility] Pulmonary, Allergy and Critical Care Medicine [address] [place] [address] Jose Thakur MD [address] [place] [address] 01/29/2025 3:00 PM EDT Office Visit [address] [place], [place] [address] Keren Poon, ORI [address] [place] [address] 06/03/2025 2:00 PM EST Office Visit [address] [place], [place] [address] Keren Poon, ORI [address] [place] [address], [address] [place] [address] [email or web address] documented as of this encounter Visit Diagnoses [...] documented as of this encounter Care Teams Distribution Collection Operator Relationship Specialty Start Date End Date Chavo Jack MD [address] [place] [address] [email or web address] PCP - General Internal Medicine 09/18/22 01/30/23 Keren Poon CNP [address] [place] [address], 2nd [place] [address] [email or web address] PCP - General Family Medicine 01/31/23 Cash Fernandes MD [address] [place] [address] Gastroenterology 08/23/20 Seven Menchaca MD [address] [place] [address] [email or web address] Insurance Assigned Provider 08/04/22 08/03/23 Chavo Jcak MD [address] [place] [address] [email or web address] Insurance Assigned Provider 08/03/23 05/04/24 Willi Wells MD [address] Vinayak [address]_[place] [address] Rheumatology 02/04/24 Jose Thakur MD [address] [place] [address] [email or web address] Filling Station Equipment Mechanic Pulmonary Disease 03/17/24 Dana Rucker FNP 15 [facility], 2nd [place] [address] [email or web address] Nurse Practitioner Infectious Diseases 05/21/24 Jonathan Alvarez MD [address] [place] [address], [address] [place] [address] [email or web address] Urology 05/14/23 Anival Borja MD [address] [place] [address], [address] [place] [address] [email or web address] Neurologist Neurology 01/04/23 Lyndsay Reynoso FNP [address] [place] [address] Drive [address] [place] [address] [email or web address] Nurse Practitioner Pain Medicine 05/27/22 Gutierrez Pittman MD [address] [place] [address] Pot Press Operator Cardiology 05/27/24 documented as of this encounter Additional Source Comments The information contained in this document represents components of the legal health record. It is not the complete legal health record.[facility]
--- OUTSIDE RECORDS SUMMARY | 2024-07-31 10:52 | XMS_ITS | Encounter Summary ---
Author Organization [facility] Address [address] [place] [address] Phone Care Team Providers Care Recoating Machine Operator Name Role Phone Cash Fernandes MD Unavailable [phone] Keren Poon [facility] Primary Care Provid er Chavo Jack MD Unavailable Willi Wells MD Unavailable Jose Thakur MD Unavailable Dana Rucker CORRESPONDENCE TRANSCRIBER Unavailable Jonathan Alvarez MD Unavailable [phone] Anival Borja MD Unavailable [phone] Lyndsay Reynoso CORRESPONDENCE TRANSCRIBER Unavailable [phone] Gutierrez Pittman MD Unavailable [phone] Encounter Details Date Type Department Care Team (Late st Contact Info) Description 01/06/2024 Procedure Pass [facility] Endoscopy Admitting Dept [facility] Department [address] [place] [address] Social History Tobacco Use Types Packs/Day Years [...] st Contact Info) Description 06/06/2024 Procedure Pass [facility], [address] [address] 08/04/2024 2:30 AM EDT Home Care Visit [facility] [address] [place] [phone] Orlando Mckeon RN [address] [place] [address] [email or web address] 08/11/2024 2:00 AM EDT [facility] [address] [place] [phone] Orlando Mckeon RN [address] [place] [address] [email or web address] 08/18/2024 1:30 AM EDT [facility] [address] [place] [phone] Orlando Mckeon RN [address] [place] [address] [email or web address] 08/25/2024 1:00 AM EDT Home Care Visit [facility] [address] [place] [phone] Orlando Mckeon RN [address] [place] [address] [email or web address] 09/01/2024 12:30 AM EDT [facility]ment [facility] [address] [place] [phone] Orlando Mckeon RN [address] [place] [address] [email or web address] 09/18/2024 2:30 PM EDT Office Visit [facility] Infectious Diseases [address] [place] [address] Dana Rucker, DIVYA [address] [address] 11/26/2024 3:30 PM EDT Office Visit [address] [place] [address] Keren Poon CNP [address] [place] [address] 12/11/2024 2:00 PM EDT Appointment [facility] [address] [place] [address] Keren Poon CNP [address] [place] [address] 01/07/2025 2:30 PM EDT Office Visit [facility], Allergy [facility] Critical [facility] Medicine [address] [place] [address] Jose Thakur MD [address] [place] [address] 01/29/2025 3:00 PM EDT Office Visit [address] [place] [address] Keren Poon CNP [address] [place] [address] 06/03/2025 2:00 PM EST Office Visit [address] [place] [address] Keren Poon CNP [address] [place] [address] [email or web address] documented as of this encounter Visit Diagnoses [...] documented as of this encounter Care Teams Recoating Machine Operator Relationship Specialty Start Date End Date Cleve Keren ORI Glaser [address] [place] [address], 2[address] [place] [address] [email or web address] PCP - General Family Medicine 01/31/23 Cash Fernandes MD [address] [place] [address] [email or web address] Gastroenterology 08/23/20 Chavo Jack MD [address] [place] [address] Insurance Assigned Provider 08/03/23 05/04/24 Willi Wells MD [address] Vinayak [address]_[place] [address] Rheumatology 02/04/24 Jose Thakur MD [address] [place] [address] Business Banking Sales Assistant Pulmonary Disease 03/17/24 Dana Rucker FNP 15 [facility], 2nd [place] [address] [email or web address] Nurse Practitioner Infectious Diseases 05/21/24 Jonathan Alvarez MD [address] [place] [address], [address] [place] [address] [email or web address] Urology 05/14/23 Anival Borja MD [address] [place] [address], [address] [place] [address] [email or web address] Neurologist Neurology 01/04/23 Lyndsay Reynoso FNP [address] [place] [address] [email or web address] Nurse Practitioner Pain Medicine 05/27/22 Gutierrez Pittman MD [address] [place] [address] Wastewater Manager Cardiology 05/27/24 documented as of this encounter Additional Source Comments The information contained in this document represents components of the legal health record. It is not the complete legal health record.[facility]
--- OUTSIDE RECORDS SUMMARY | 2024-07-31 10:52 | XMS_ITS | Encounter Summary ---
Author Organization [facility] Address [address] [place] [address] Phone Care Team Providers Care Grated Cheese Maker Name Role Phone Unavailable Primary Care Provider Unavailabl e Encounter Details Date Type Department Care Team (Late st Contact Info) Description 10/09/2011 Hospital Encounter [facility],Outside Imaging [address] [place], [place] [id number] System, Provider Not In, [place] [address] Social History Tobacco Use Types Packs/Day Years [...] st Contact Info) Description 06/06/2024 Procedure Pass [facility], [facility] [address] [place] [address] 08/04/2024 2:30 AM EDT [facility] [address] [place] [phone] Orlando Mckeon RN [address] [place] [address] [email or web address] 08/11/2024 2:00 AM EDT [facility] [address] [place] [phone] Orlando Mckeon RN [address] [place] [address] [email or web address] 08/18/2024 1:30 AM EDT [facility] [address] [place] [phone] rOlando Mckeon RN [address] [place] [address] [email or web address] 08/25/2024 1:00 AM EDT [facility] [address] [place] [phone] Orlando Mckeon, RENZO [address] [place] [address] [email or web address] 09/01/2024 12:30 AM EDT Appointment [facility] [address] [place] [phone] Orlando Mckeon RN [address] [place] [address] [email or web address] 09/18/2024 2:30 PM EDT Office Visit [facility] Infectious Diseases [address] [place] [address] Dana Rucker, EXTRUSION DIE COORDINATOR 15 [facility], 2nd [place] [address] 11/26/2024 3:30 PM EDT Office Visit [address] [place], [place] [address] Keren Poon CNP [address] [place] [address] 12/11/2024 2:00 PM EDT Appointment [facility], [facility]- [address] [address] Keren Poon CNP [address] [place] [address] 01/07/2025 2:30 PM EDT Office Visit [facility], Allergy and Critical Care Medicine [address] [place] [address] Jose Thakur MD [address] [place] [address] 01/29/2025 3:00 PM EDT Office Visit [address] [place], [place] [address] Keren Poon CNP [address] [place] [address] 06/03/2025 2:00 PM EST Office Visit [address] [place], [place] [address] Keren Poon CNP [address] [place] [address] documented as of this encounter Procedures Procedure [...] is not the complete legal health record.[facility]
--- OUTSIDE RECORDS SUMMARY | 2024-07-31 10:52 | XMS_ITS | Encounter Summary ---
Author Organization [facility] Address [address] [place] [address] Phone Care Team Providers Care Senior Power Scheduler Name Role Phone Patrick Sanchez MD Unavailable [phone] Charly Saxena DO Primary Care Provider [phone] Cheryl Calderon MD Primary Care Provider Keren Mabry MD Unavailable Louisa Hogan MD Unavailable Charly Saxena DO Unavailable [phone] Abhinav Muhammad MD Unavailable [phone] Cheryl Giraldo NP Unavailable Wilfrido Steel MD Unavailable [phone] Sharon Martin PA-C Unavailable Ita Pineda CNP Primary Care Provider Cash Fernandes MD Unavailable [phone] Seven Menchaca MD Unavailable [phone] Chavo Jack MD Primary Care Provider [phone] Cleve Kerenrex Glaser [facility] Primary Care Provid er Chavo Jack MD Unavailable Willi Wells MD Unavailable Jose Thakur MD Unavailable [phone] Dana Rucker SIGNAL TOWER DIRECTOR Unavailable Jnoathan Alvarez MD Unavailable [phone] Anival Borja MD Unavailable Lyndsay Reynoso SIGNAL TOWER DIRECTOR Unavailable [phone] Gutierrez Pittman MD Unavailable Encounter Details Date Type Department Care Team (Late st Contact Info) Description 12/27/2017 Ancillary Orders [facility] Orthopedics at [address] [address] Patrick Sanchez MD [address] [place] [address] Department [place] [address] [email or web address] Right [email or web address] Social History Tobacco [...] st Contact Info) Description 06/06/2024 Procedure Pass [facility], [address] [address] 08/04/2024 2:30 AM EDT [facility] [address] [place] [phone] [place] Mckeon, RENZO 168 [place] [address] 08/11/2024 2:00 AM EDT Home Care Visit [facility] [address] [place] [address] [place] Mckeon RN 168 [place] [address] 08/18/2024 1:30 AM EDT Home Care Visit [facility] [address] [place] [phone] [place] Mckeon RN 168 [place] [address] 08/25/2024 1:00 AM EDT Home Care [facility] [address] [place] [phone] [place] Mckeon RN 168 [place] [address] 09/01/2024 12:30 AM EDT Appointment [facility] [address] [place] [phone] [place] Mckeon, RENZO [address] [place] [address] 09/18/2024 2:30 PM EDT Office Visit [facility] Infectious Diseases 22 [place] [address] Dana Rucker, DIVYA [address] [address] 11/26/2024 3:30 PM EDT Office Visit [facility] Medical [address] [place] [address] eKren Poon, FUEL DOCK ATTENDANT [address] [place] [address] [email or web address] 12/11/2024 2:00 PM EDT Appointment [address] [address] Keren Poon, ORI 170 [facility], [address] [place] [address] 01/07/2025 2:30 PM EDT Office Visit [facility] Pulmonary, Allergy and Critical Care Medicine [address] [place] [address] Jose Thakur MD [address] [place] [address] 01/29/2025 3:00 PM EDT Office Visit [address] [place] [address] Keren Poon, ORI [address] [address] 06/03/2025 2:00 PM EST Office Visit [address] [place] [address] Keren Poon, ORI [address] [address] documented as of this encounter Results * [...] as of this encounter Care Teams Senior Power Scheduler Relationship Specialty Start Date End Date Charly Saxena DO [address] [place] [address] PCP - General Internal Medicine 10/05/14 04/22/18 Cheryl Calderon MD [address] [place] [address] PCP - General Family Medicine 04/23/18 08/18/20 Ita Pineda CNP [address] [place] [address] PCP - General Internal Medicine 08/19/20 09/17/22 Chavo Jack MD [address] [place] [address] [email or web address] PCP - General Internal Medicine 09/18/22 01/30/23 Keren Poon CNP [address] [place] [address], 2nd [place] [address] [email or web address] PCP - General Family Medicine 01/31/23 Patrick Sanchez MD [address] [place] [address] of [place] [address] [email or web address] Historical LMR Provider 09/10/14 Keren Mabry MD [address] [place] [address] Historical LMR Provider 07/10/18 Louisa Hogan MD [address] [place] [address] [email or web address] Historical LMR Provider 07/10/1807/29 Charly Saxena DO [address] [place] [address] 301 [place] [address] Historical LMR Provider 07/10/18 Abhinav Muhammad MD [address] [place] [address] 104 [place] [address] [email or web address] Historical LMR Provider 07/10/18 08/22/20 Cheryl Giraldo, INDUSTRIAL ECONOMICS TEACHER 94 [place] [address] Historical LMR Provider 07/10/18 Wilfrido Steel MD [address] [place] [address] Historical LMR Provider 07/10/18 Shaorn Martin PA-C 115 [facility]. 104 [place] [address] [email or web address] Historical LMR Provider 07/10/18 08/22/20 Cash Fernandes MD [address] [place] [address] [email or web address] Gastroenterology 08/23/20 Seven Menchaca MD [address] [place] [address] [email or web address] Insurance Assigned Provider 08/04/22 08/03/23 Chavo Jack MD 40 [place] [address] [email or web address] Insurance Assigned Provider 08/03/23 05/04/24 Willi Wells MD [address] [place] [address] 304_[place] [address] Rheumatology 02/04/24 Jose Thakur MD [address] [place] [address] Covering Machine Tender Pulmonary Disease 03/17/24 Dana Rucker FNP 15 [facility], 2nd [place] [address] Nurse Practitioner Infectious Diseases 05/21/24 Jonathan Alvarez MD [address] [place] [address], [address] [place] [address] Urology 05/14/23 Anival Borja MD [address] [place] [address], [address] [place] [address] Neurologist Neurology 01/04/23 Lyndsay Reynoso FNP [address] [place] [address] [place] [address] [email or web address] Nurse Practitioner Pain Medicine 05/27/22 Gutierrez Pittman MD 40 [place] [address] Strip Mine Supervisor Cardiology 05/27/24 documented as of this encounter Additional Source Comments The information contained in this document represents components of the legal health record. It is not the complete legal health record.[facility]
--- OUTSIDE RECORDS SUMMARY | 2024-07-31 10:52 | XMS_ITS | Encounter Summary ---
Author Organization [facility] Address 5 [place] [address] Care Team Providers Care Carpet Finishing Supervisor Name Role Phone Cheryl Calderon MD Primary Care Provider [phone] Reason for Visit * Reason Comments E-prescribing Refill Request Encounter Details Date Type Department Care Team (Late st Contact Info) Description 06/08/2019 Refill [facility]. Rheumatology 5 [place] [phone] Melanie Aguirre MD 5 [place] [address] E-prescribing Refill Request Social History Tobacco Use [...] Phone 06/19/19 1:45 PM Melanie Aguirre MD [facility] Rheumatology [phone] 08/04/19 2:40 PM Liliana Calderon NP [facility] Hematology/Oncology [phone] 11/10/19 1:30 PM Lyndsay Lopez MD [facility] Ophthalmology [phone] Pertinent lab results: Lab Results Component Value [...] pain 06/03/2012 ??? Rheumatoid arthritis(714.0) ([facility]) 09/29/2010 Followed by rheumatology treated [...] on filedocumented in this encounter Care Teams Carpet Finishing Supervisor Relationship Specialty Start Date End Date Cheryl Calderon MD [facility] Adult Medicine [address] [place] [address] PCP - General Internal Medicine 07/17/17 documented as of this encounter
--- OUTSIDE RECORDS SUMMARY | 2024-07-31 10:52 | XMS_ITS | Clinical Summary ---
Author Organization [facility] Address [address] [place] [address] Care Team Providers Care Child Day Care Center Worker Name Role Phone Cheryl Calderon MD Primary Care Provider [phone] Allergies Active Allergy Reactions Criticality Noted Date [...] Name Administration Dates Next Due COVID-19, mRNA ([employer] Pre F all 2022) Monovalent, 30 mcg/0.3 ml 04/11/2021,10/03/2020,07/08/2020 Covid-19, mRNA ([employer] Pre F all 2022) Bivalent, 30 mcg/0.3 ml mohan-sucrose (12+) dose 04/13/2022 Covid-19, mRNA ([employer] Pre F all 2022) Monovalent, 30 [...] Zoster (Zostavax) Discontinued Procedures * Due to [place] state law, [...] to Health Maintenance Results * Due to [place] state law, this organization might not be sharing negative HIV tests. * COMPREHENSIVE EYE EXAM (01/23/2019) us Unknown Provider MINOR PROCEDURE Final Result * HEPATITIS C AB WITH REFLEX TO RNA PCR, SERUM (12/23/2018 11:32 AM EDT) Hepatitis C virus Ab NON-REACT MANOLO NON-REACT MANOLO [facility] Hepatitis C virus Ab Signal/Cutoff 0.01 <1.00 [facility] Comment: HCV antibody was non-reactive. There is no laboratory evidence of HCV infection. In most cases, no further action is required. However, if recent HCV exposure is suspected, a test for HCV RNA (test code 73695) is suggested. For additional information please refer to http://education.Point.io/faq/ABK42n7 (This link is being provided for informational/ educational purposes only.) 12/23/2018 11:3 2 AM EDT 12/23/2018 11:23 PM EDT Narrative Resulting Agency Comment [id number] us Liliana Nehemiaszahiracatherine [facility] Final Result [facility] [address] [place] [address] * DXA BONE DENSITY STUDY AXIAL (LSSPINE, [...] X-RAY ABSORPTIOMETRY (DXA) SCAN: ?? DXA MODEL: HoloRyzing Discovery SL in fast scan mode RISK [...] RISK/LIPID PROFILE I (11/03/2004 9:46 AM EDT) [facility] CHOLESTEROL, TOTAL 191 100 - 199 MG/DL [facility] (CLIA# [id number]) TRIGLYCERIDES 132 30 - 149 MG/DL [facility] (CLIA# [id number]) HDL-CHOLESTEROL 85(H) 40 - 77 MG/DL [facility] (CLIA# [id number]) LDL-CHOLESTEROL 80 62 - 130 MG/DL [facility] (CLIA# [id number]) Comment: RISK CATEGORY: ??LDL-CHOLESTEROL GOAL CHD AND CHD RISK EQUIVALENTS: ??<100 MULTIPLE (2+) FACTORS: ??<130 ZERO TO ONE RISK FACTOR: ??<160 CHD RELATIVE RISK RATIO (TOTAL/HDL) 2.[address] [facility] (CLIA# [id number]) Comment:(< .25 X AVERAGE) 11/03/2004 9:46 AM EDT 11/03/2004 9:46 AM EDT N[facility]ative [facility]CL[facility]# [id number]) - 11/03/2004 9:46 AM EDT FASTING us Abel Fierro MD LABORATORY Final Result Performing Organization Address [facility] Co de Phone Number [facility] (CLIA# [id number]) [address] [place] [address] * XRAY CHEST 2 VIEWS PA & LAT (06/28/2003 1:26 PM EST) [facility] RADIOLOGY REPORT Chest: Lungs and pleural reflections [...] Conclusion: No acute disease. [facility] (CLIA# [id number]) Anatomical Region Laterality Modality Other 06/28/2003 1:26 [...] the interpreting radiologist. BI-RADS Category 1: Negative [facility] (CLIA# [id number]) LETTER SENT A mammogram letter type A N was printed on 07/08/2001 [facility] (CLIA# [id number]) Anatomical Region Laterality Modality Other 06/25/2001 1:42 PM EST Charly Saxena [facility]- OTHER Final Res ult * [...] polyp was seen. FC [facility] (CLIA# [id number]) Anatomical Region Laterality Modality Other 06/07/2000 8:40 AM EST Narrative 06/07/2000 2:57 PM EST Reason for Study/History: ABD PAIN Test(s) processed by : [facility] Jeff Puente PA-C CONTRAST STUDY- OTHER Elana l Result * PAP SMEAR (12/06/1999 12:00 AM EDT) SPERM SOURCE VCE [facility] (CLIA# [id number]) NUMBER OF SLIDES RECEIVED: 1 [facility] (CLIA# [id number]) HISTORY CLINICAL [facility] (CLIA# [id number]) Comment:Menopause 8[address] [facility] (CLIA# [id number]) Comment:Endocervical cells a re present SPECIMEN ADEQUACY: [facility] (CLIA# [id number]) Comment:Satisfactory specime n for Cytologic evaluation. PATHOLOGY DIAGNOSIS [facility] (CLIA# [id number]) Comment:WITHIN NORMAL LIMITS PATHOLOGY GROUP: [facility] (CLIA# [id number]) Comment: [address] [place]. [address] 12/06/1999 12/06/1999 Chloe Law MD PATHOLOGY Final Resul t [facility] (CLIA# [id number]) [address] [place] [address] from Last 3 Months or Most Recently Relevant to Health Maintenance Insurance , [address] [place] [address] MEDICARE PART B [facility] FFS FEDERAL Care Teams Child Day Care Center Worker Relationship Specialty Start Date End Date Cheryl Calderon MD [facility] Adult Medicine [address] [place] [address] PCP - General Internal Medicine 07/17/17
--- OUTSIDE RECORDS SUMMARY | 2024-07-31 10:52 | XMS_ITS | Encounter Summary ---
Author Organization [facility] Address [address] [place] [address] Phone Care Team Providers Care Straw Hat Presser Name Role Phone Unavailable Primary Care Provider Unavailabl e Encounter Details Date Type Department Care Team (Late st Contact Info) Description 10/09/2012 Hospital Encounter [facility],Outside Imaging [address] [place], [place] [phone] System, Provider Not In, [place] [address] Social History Tobacco Use Types Packs/Day Years [...] st Contact Info) Description 06/06/2024 Procedure Pass [facility], [facility] 30 [place] [address] 08/04/2024 2:30 AM EDT [facility] [address] [place] [phone] [place] Mckeon RN [address] [place] [address] [email or web address] 08/11/2024 2:00 AM EDT [facility] [address] [place] [phone] [place] Mckeon RN [address] [place] [address] [email or web address] 08/18/2024 1:30 AM EDT [facility] [address] [place] [phone] [place] Mckeon RN [address] [place] [address] [email or web address] 08/25/2024 1:00 AM EDT [facility] [address] [place] [phone] [place] Mckeon, RENZO [address] [place] [address] [email or web address] 09/01/2024 12:30 AM EDT Appointment [facility] [address] [place] [phone] [place] Mckeon RN [address] [place] [address] [email or web address] 09/18/2024 2:30 PM EDT Office Visit [facility] Infectious Diseases 22 [place] [address] Dana Rucker, DB2 SYSTEMS PROGRAMMER 15 [facility], 2nd [place] [address] 11/26/2024 3:30 PM EDT Office Visit [address] [place], [place] [address] Keren Poon CNP [address] [place] [address] 12/11/2024 2:00 PM EDT Appointment [facility], [facility] 30 [place] [address] Keren Poon CNP [address] [place] [address] 01/07/2025 2:30 PM EDT Office Visit [facility], Allergy and Critical Care Medicine [address] [place] [address] Jose Thakur MD [address] [place] [address] 01/29/2025 3:00 PM EDT Office Visit [address] [place], [place] [address] Keren Poon CNP [address] [place] [address] 06/03/2025 2:00 PM EST Office Visit [address] [place], [place] [address] Keren Poon CNP [address] [place] [address] documented as of this encounter Procedures Procedure [...] It is not the complete legal health record.[facility]
--- OUTSIDE RECORDS SUMMARY | 2024-07-31 10:52 | XMS_ITS | Encounter Summary ---
Author Organization [facility] Address [address] [place] [address] Phone Care Team Providers Care District Ranger Name Role Phone Patrick Sanchez MD Unavailable [phone] Charly Saxena DO Primary Care Provider Cheryl Calderon MD Primary Care Provider Keren Mabry MD Unavailable Louisa Hogan MD Unavailable [phone] Charly Saxena DO Unavailable [phone] Abhinav Muhammad MD Unavailable [phone] Cheryl Giraldo NP Unavailable Wilfrido Steel MD Unavailable [phone] Sharon Martin PA-C Unavailable Ita Pineda CNP Primary Care Provider Cash Fernandes MD Unavailable [phone] Seven Menchaca MD Unavailable [phone] Chavo Jack MD Primary Care Provider Cleve Kerenrex Glaser [facility] Primary Care Provid er Chavo Jack MD Unavailable Willi Wells MD Unavailable Jose Thakur MD Unavailable [phone] Dana Rucker EQUIPMENT SERVICE ASSOCIATE Unavailable Jonathan Alvarez MD Unavailable [phone] Anival Borja MD Unavailable [phone] Lyndsay Reynoso EQUIPMENT SERVICE ASSOCIATE Unavailable [phone] Gutierrez Pittman MD Unavailable [phone] Encounter Details Date Type Department Care Team (Late st Contact Info) Description 12/20/2017 Procedure Pass [facility]iop 6th floor [address] [place] [address] Social History Tobacco Use Types Packs/Day Years [...] (Late Contact Info) Description 06/06/2024 Procedure Pass [address] [address] 08/04/2024 2:30 AM EDT [facility] [address] [place] [phone] [place] Mckeon, RN 168 [place] [address] 08/11/2024 2:00 AM EDT [facility] [address] [place] [phone] Olrando Mckeon, RENZO 168 [place] [address] 08/18/2024 1:30 AM EDT Home Care Visit [facility] [address] [place] [address] [place] Mckeon RN 168 [place] [address] 08/25/2024 1:00 AM EDT [facility] [address] [place] [phone] [place] Mckoen RN 168 [place] [address] 09/01/2024 12:30 AM EDT Appointment [facility] [address] [place] [address] [place] Mckeon, RENZO 168 [place] [address] 09/18/2024 2:30 PM EDT Office Visit [facility] Infectious Diseases [address] [place] [address] Dana Rucker, EQUIPMENT SERVICE ASSOCIATE 15 [facility], [address] [place] [address] 11/26/2024 3:30 PM EDT Office Visit [facility] [address] [place] [address] [place] [address] Keren Poon, [facility] 170 [facility], [address] [place] [address] 12/11/2024 2:00 PM EDT Appointment [facility] 30 [place] [address] Keren Poon, STUDIO MANAGER 170 [facility], [address] [place] [address] [email or web address] 01/07/2025 2:30 PM EDT Office Visit [facility], Allergy and Critical Care Medicine [address] [place] [address] Jose Thakur MD [address] [place] [address] 01/29/2025 3:00 PM EDT Office Visit [address] [place] [address] Keren Poon, STUDIO MANAGER [address] [place] [address] 06/03/2025 2:00 PM EST Office Visit [address] [place] [address] Keren Poon, ORI [address] [place] [address] documented as of this encounter Visit Diagnoses [...] documented as of this encounter Care Teams District Ranger Relationship Specialty Start Date End Date Charly Saxena DO [address] [address] PCP - General Internal Medicine 10/05/14 04/22/18 Cheryl Calderon MD [address] [place] [address] PCP - General Family Medicine 04/23/18 08/18/20 Ita Pineda CNP 40 [place] [address] PCP - General Internal Medicine 08/19/20 09/17/22 Chavo Jack MD 40 [place] [address] PCP - General Internal Medicine 09/18/22 01/30/23 Keren Poon CNP [address] [place] [address], 2nd [place] [address] PCP - General Family Medicine 01/31/23 Patrick Sanchez MD [address] [place] [address] Department [place] [address] [email or web address] Historical LMR Provider 09/10/14 Keren Mabry MD [address] [place] [address] Historical LMR Provider 07/10/18 [place] [address] [place] [address] [email or web address] Historical LMR Provider 07/10/1807/29 Charly Saxena DO [address] [place] [address] Historical LMR Provider 07/10/18 Abhinav Muhammad MD 115 [facility] 104 [place] [address] [email or web address] Historical LMR Provider 07/10/18 08/22/20 Cheryl Giraldo NP 94 [place] [address] Historical LMR Provider 07/10/18 Wilfrido Steel MD [address] [place] [address] Historical LMR Provider 07/10/18 Sharon Martin PA-C 115 [facility] 104 [place] [address] [email or web address] Historical LMR Provider 07/10/18 08/22/20 Cash Fernandes MD 10 [place] [address] [email or web address] Gastroenterology 08/23/20 Seven Menchaca MD [address] [place] [address] [email or web address] Insurance Assigned Provider 08/04/22 08/03/23 Chavo Jack MD [address] [place] [address] [email or web address] Insurance Assigned Provider 08/03/23 05/04/24 Willi Wells MD [address] [place], [place] [address] [address] Rheumatology 02/04/24 Jose Thakur MD [address] [place] [address] [email or web address] Belt Cleaner Pulmonary Disease 03/17/24 Dana Rucker FNP 15 [facility], 2nd [place] [address] [email or web address] Nurse Practitioner Infectious Diseases 05/21/24 Jonathan Alvarez MD [address] [place] [address], [address] [place] [address] [email or web address] Urology 05/14/23 Anival Borja MD [address] [place] [address], [address] [place] [address] Neurologist Neurology 01/04/23 Lyndsay Reynoso FNP [address] [place] [address] [email or web address] Nurse Practitioner Pain Medicine 05/27/22 Gutierrez Pittman MD [address] [place] [phone] Receptionist Secretary Cardiology 05/27/24 documented as of this encounter Additional Source Comments The information contained in this document represents components of the legal health record. It is not the complete legal health record.[facility]
--- OUTSIDE RECORDS SUMMARY | 2024-07-31 10:52 | XMS_ITS | Encounter Summary ---
Author Organization [facility] Address [address] [place] [address] Care Team Providers Care Implementation Advisor Name Role Phone Charly Saexna Primary Care Provider [phone] Cheryl Calderon MD Primary Care Provider Encounter Details Date Type Department Care Team (Late st Contact Info) Description 05/25/2013 Orders Only [facility] Rheumatology [address] [place] [address] Abel Fierro MD [address] [place] [address] Social History Tobacco Use Types Packs/Day Years [...] of this encounter Results * Due to [place] state law, this organization might not be sharing negative HIV tests. * C-REACTIVE PROTEIN (CRP) - INFLAMMATION (05/25/2013 3:30 PM EST) C reactive protein 0.52 <0.80 mg/dL [facility] Comment: {C-REACTIVE PROTEIN {[id number]) Please be advised that patients taking Carboxypenicillins may exhibit falsely decreased C-Reactive Protein levels due to an analytical interference in this assay. 05/25/2013 3:30 PM EST 05/25/2013 6:52 PM EST Narrative Resulting Agency Comment [id number] us Abel Fierro MD LABORATORY Final Result Performing Organization Address City/[facility] Co de Phone Number [facility] [address] [place] [address] * (ABNORMAL) ERYTHROCYTE SEDIMENTATION RATE (ESR), KUNAL (05/25/2013 3:30 PM EST) Sedimentation Rate [place] (ESR) 32(H) < OR = 30 mm/h [facility] Comment:{SED RATE BY JONATHAN SYED {[id number]) 05/25/2013 3:30 PM EST 05/25/2013 6:52 PM EST Narrative Resulting Agency Comment [id number] us Abel Fierro MD LAB SAME DAY RESULT Final Resul t Performing Organization Address [facility] Co de Phone Number [facility] [address] [place] [address] documented in this encounter Visit Diagnoses Diagnosis Rheumatoid arthritis(714.0)- Primary Rheumatoid arthritis documented in this encounter Care Teams Implementation Advisor Relationship Specialty Start Date End Date Charly Saxena [facility] [address] [place] [address] PCP - General Internal Medicine 05/25/13 07/16/17 Cheryl Calderon MD [facility] Medicine [address] [place] [address] PCP - General Internal Medicine 07/17/17 documented as of this encounter
--- OUTSIDE RECORDS SUMMARY | 2024-07-31 10:53 | XMS_ITS | Encounter Summary ---
Author Organization [facility] Address [address] [place] [address] Care Team Providers Care Resp Ther Name Role Phone Alberto Pacheco Primary Care Provider [phone] Charly Saxena Primary Care Provider [phone] Cheryl Calderon MD Primary Care Provider [phone] Encounter Details Date Type Department Care Team (Late st Contact Info) Description 08/05/2012 Orders Only [facility] Rheumatology [address] [place] [address] Abel Fierro MD [address] [place] [address] Social History Tobacco Use Types Packs/Day Years [...] - 1.05 mg/dL [facility] Comment: {CREATININE {[id number]) For patients >49 years of age, the reference limit for Creatinine is approximately 13% higher for people identified as -Austrian. GFR 82 > OR = 60 mL/min/1. 73m2 [facility] Comment:{eGFR NON-AFR. AMERI CAN {[id number]) GFR () 95 > OR = 60 mL/min/1. 73m2 [facility] Comment:{eGFR AMERIC AN {[id number]) 08/05/2012 12:5 3 PM EDT 08/05/2012 4:46 [...] needs for GFR calculation. Resulting Agency Comment [id number] us Abel Fierro MD LAB SAME DAY RESULT Final Resul t [facility] [address] [place] [address] * (ABNORMAL) CBC INCLUDES DIFFERENTIAL AND PLATELET COUNT (08/05/2012 12:53 PM EDT) WBC 7.8 3.8 - 10.8 Thousand/ uL [facility] Comment:{WHITE BLOOD CELL CO UNT {[id number]) RBC 5.22(H) 3.80 - 5.10 Million/u L [facility] Comment:{RED BLOOD CELL COUN T {[id number]) Hemoglobin 14.0 11.7 - 15.5 g/dL [facility] Comment:{HEMOGLOBIN {[id number]) Hematocrit 44.8 35.0 - 45.0 % [facility] Comment:{HEMATOCRIT {[id number]) MCV 85.8 80.0 - 100.0 fL [facility] Comment:{MCV {[id number]) MCH 26.9(L) 27.0 - 33.0 pg [facility] Comment:{MCH {[id number]) MCHC 31.4(L) 32.0 - 36.0 g/dL [facility] Comment:{MCHC {[id number]) RDW 15.9(H) 11.0 - 15.0 % [facility] Comment:{RDW {[id number]) PLT 305 140 - 400 Thousand/ uL [facility] Comment:{PLATELET COUNT {[id number]) MPV 8.0 7.5 - 11.5 fL [facility] Comment:{MPV {[id number]) Neutrophils # 3237 1500 - 7800 cells/uL [facility] Comment:{ABSOLUTE NEUTROPHIL S {[id number]) Lymphocytes # 3229 850 - 3900 cells/uL [facility] Comment:{ABSOLUTE LYMPHOCYTE S {[id number]) Monocytes # 1014(H) 200 - 950 cells/uL [facility] Comment:{ABSOLUTE MONOCYTES {[id number]) Eosinophils # 273 15 - 500 cells/uL [facility] Comment:{ABSOLUTE EOSINOPHIL S {[id number]) Basophils # 47 0 - 200 cells/uL [facility] Comment:{ABSOLUTE BASOPHILS {[id number]) Neutrophils % 41.5 % [facility] Comment:{NEUTROPHILS {[id number]) Lymphocytes % 41.4 % [facility] Comment:{LYMPHOCYTES {[id number]) Monocytes % 13.0 % [facility] Comment:{MONOCYTES {[id number]) Eosinophils % 3.5 % [facility] Comment:{EOSINOPHILS {[id number]) Basophils % 0.6 % [facility] Comment:{BASOPHILS {[id number]) 08/05/2012 12:5 3 PM EDT 08/05/2012 4:46 PM EDT Narrative Resulting Agency Comment [id number] us Abel Fierro MD LAB SAME DAY RESULT Final Resul t Performing Organization Address City/[facility] Co de Phone Number [facility] [address] [place] [address] * ALANINE AMINOTRANSFERASE (ALT), SERUM (08/05/2012 12:53 PM EDT) ALT (SGPT) 18 6 - 40 U/L [facility] Comment:{ALT {[id number]) 08/05/2012 12:5 3 PM EDT 08/05/2012 4:46 PM EDT Narrative Resulting Agency Comment [id number] us Abel Fierro MD LAB SAME DAY RESULT Final Resul t Performing Organization Address [facility] Co de Phone Number [facility] [address] [place] [address] * ASPARTATE AMINOTRANSFERASE (AST), SERUM (08/05/2012 12:53 PM EDT) AST (SGOT) 17 10 - 35 U/L [facility] Comment:{AST {[id number]) 08/05/2012 12:5 3 PM EDT 08/05/2012 4:46 PM EDT Narrative Resulting Agency Comment [id number] us Abel Fierro MD LAB SAME DAY RESULT Final Resul t Performing Organization Address City/[facility] Co de Phone Number [facility] [address] [place] [address] documented in this encounter Visit Diagnoses Diagnosis Rheumatoid arthritis(714.0) Rheumatoid arthritis documented in this encounter Care Teams Resp Ther Relationship Specialty Start Date End Date Alberto Pacheco [address] [place] [address] PCP - General 07/19/08 05/24/13 Charly Saxena [facility] [place] [address] PCP - General Internal Medicine 05/25/13 07/16/17 Cheryl Calderon MD [facility] [address] [place] [address] PCP - General Internal Medicine 07/17/17 documented as of this encounter
--- OUTSIDE RECORDS SUMMARY | 2024-07-31 10:53 | XMS_ITS | Clinical Summary ---
Author Organization [facility] Address [address] [place] [address] Phone Care Team Providers Care Pediatric Radiologist Name Role Phone Cash Fernandes MD Unavailable [phone] Keren Poon [facility] Primary Care Provid er Willi Wells MD Unavailable Jose Thakur MD Unavailable Dana Rucker CHARGER Unavailable Jonathan Alvarez MD Unavailable [phone] Anival Borja MD Unavailable Lyndsay Reynoso CHARGER Unavailable [phone] Gutierrez Pittman MD Unavailable [phone] Allergies Active Allergy Reactions Criticality Noted Date Comments Codeine Itching,Swelling,Oth er (See Comments) 08/26/2008 Qrjrdqj-Zvycqgoyqa-Ies-Caff 08/21/19 21 Gold Salts Hives 08/26/2008 Nitrofurantoin [...] daily. Active azelastine-flutica sone (DYMISTA) 137-50 mcg/spray [place] 1 spray by Each Nare route 2 [...] 07/14/19 25 Discontinued(Sto p Taking at Discharge) tetanus toxoid-reduced diphth toxoid-acell pertussis (BOOSTRIX,TDAP) 2.5-8-5 Lf-mcg-Lf/0.5mL SuspIndications:Ne ed for Tdap vaccination Inject 0.5 mL into the muscle once for 1 dose. 0.5 mL 5 07/31/19 25 Active Problems Problem Noted Date Diagnosed Date [...] of future UTIs. A referral to a mat packer will be made. 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 Patient has regular echocardiograms manages blood pressure and continues to take low-dose furosemide held iso setting of volume depletion. 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 Patient has regular echocardiograms manages blood pressure and continues to take low-dose furosemide which I will hold in the setting of volume depletion. 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 Patient has regular echocardiograms manages blood pressure and continues to take low-dose furosemide which I will hold in the setting of volume depletion. 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 A referral to a steamboat captain will be made today. If there is no improvement, a follow-up with the steamboat captain is recommended. Allergic rhinitis 11/21/2023 Assessment & [...] neurology (Dr Borja) and also pain management ([facility] Assessment & Plan (09/09/2023 8:42 AM EDT): Left sided face and head pain w/ dx: occipital neuralgia. Recently had nerve ablation performed on the left side, no improvement noted from this procedure yet. Followed by neurology (Dr Borja) and also pain management ([facility]). Assessment & Plan (06/07/2023 12:36 PM EST): Left sided face and head pain w/ dx: occipital neuralgia over the last 9 months. Followed by neurology (Dr Borja) and also pain management ([facility]). Awaiting insurance approval for nerve ablation per her report. Assessment & Plan (05/23/2023 2:20 PM EST): Left sided face and head pain w/ dx: occipital neuralgia over the last 8-9 months. Followed by neurology (Dr Borja) and also pain management ([facility]). Cervical radiculopathy 05/25/2022 Assessment & Plan (06/06/2024 [...] WRITTEN ON 09/28/2020 7:31 AM BY ITA RODRIGUEZ, ANALYST PROGRAMMER multiple Obstructive sleep apnea, adult 08/20/2020 Overview [...] & Plan (04/15/2024 8:14 PM EST): Sees steamboat captain for shortness of breath with exertion uses oxygen as needed has sleep apnea but untreated-in the past had difficulty with CPAP machine Assessment & Plan (04/14/2024 2:18 PM EST): Sees steamboat captain for shortness of breath with exertion uses oxygen as needed has sleep apnea but untreated-in the past had difficulty with CPAP machine Assessment & Plan (04/13/2024 11:58 AM EST): Sees steamboat captain for shortness of breath with exertion uses [...] AC. HRR on exam today. Followed by [facility] cardiology (Dr Pittman). Assessment & Plan [...] scheduled for a follow-up appointment with her contract negotiator, Dr. Puckett, on 09/11/2023. If required, I [...] -waiting on a new appointment with a appointment coordinator to resume treatment, has had increasing joint pain and is now close to 3 months overdue for Rituxan, ID can advise in follow up on resuming. -no indication for stress dose steroids. Assessment & Plan (07/12/2024 9:11 AM EDT): -maintained on prednisone, Rituxan methotrexate, Rituxan and methotrexate were held last admission and have remained on hold -waiting on a new appointment with a appointment coordinator to resume treatment, has had increasing joint pain and is now close to 3 months overdue for Rituxan, will have infectious diseases weigh in -no indication for stress dose steroids. Assessment & Plan (07/11/2024 8:43 AM EDT): -maintained on prednisone, Rituxan methotrexate, Rituxan and methotrexate were held last admission and have remained on hold -waiting on a new appointment with a appointment coordinator to resume treatment, has had increasing joint [...] waiting on a new appointment with a appointment coordinator to resume treatment, has had increasing joint [...] patient will continue her follow-up with her appointment coordinator, Dr. Franklin, in 09/2023. Assessment & Plan [...] (05/25/2022 9:19 PM EST): Establishing with new appointment coordinator. Discussed planning to reduce frequency and dose [...] She is unable to enroll in the [facility] fecal transplant program due to use of [...] ON 04/12/2024 3:51 PM BY YOLY GRIMES, CT showing pancolitis. Recent abx, recurrent uti Cdiff + vanco q6h started 04/10, 125 mg orally, 10 day course. Today [...] 04/10, 125 mg orally, 10 day course. She [...] follow-up with the pain management team at [facility]. Abnormal urine odor 09/05/2023 01/02/20 Assessment & [...] 2 L/min Rheumatoid arthritis involving multiple sites 05/23/19 24 05/23/2023 Suicidal ideation 12/05/2022 05/09/2024 Assessment & Plan [...] use of opioids 05/25/2022 05/23/2023 Overview (06/20/2022): ORTHOPEDIC SPECIALIST P on file Urine toxicology screen May [...] Encounters Date Type Department Care Team Description 07/30/2024 3:30 PM EDT Office Visit [facility] [address] [place] [address] Keren Poon CNP Need for Tdap vaccination (Primary Dx); C. difficile colitis; Rheumatoid arthritis involving multiple sites, unspecified whether rheumatoid factor present 07/29/2024 Telephone [facility] Infectious Diseases [address] [place] [address] Belinda Cho MA 07/28/2024 1:00 PM EDT Home Care Visit [facility] [address] [place] [phone] Trice De Santiago LPN LPN HOME VISIT 07/28/2024 Telephone [facility] Infectious Diseases [address] [place] [address] Adam Treadwell MD [facility] trying to reach Dr Treadwell ([facility] trying to reach Dr Treadwell) 07/24/2024 2:30 PM EDT Office Visit [facility] Infectious Diseases [address] [place] [address] Dana Rucker FNP C. difficile colitis (Primary Dx) 07/24/2024 Telephone [facility] Infectious Diseases [address] [place] [address] Dana Rucker FNP Medication Prior Authorization (VOWST) 07/23/[address] [place] [address] Keren Poon, ORI Medication Refill 07/22/2024 4:00 AM EDT Home Care Visit [facility] [address] [place] [phone] Sunitha Macias LPN SPIKEMAKING SUPERVISOR HOME VISIT 07/21/2024 10:00 AM EDT Home Care Visit [facility] [address] [place] [phone] Elida Schreiber, PT PT EVALUATION 07/20/2024 Home Care Visit [facility] [address] [place] [phone] Elida Schreiber, PT TELEPHONE ENCOUNTER 07/17/2024 Home Care Visit [facility] [address] [place] [address] Linda Melchor, PT CASE COMMUNICATION 07/16/[address] [place] [address] Keren Poon, ORI [facility] 07/16/2024 Plan of Care Documentation [facility] [address] [place] [phone] 07/14/2024 11:00 AM EDT Home Care Visit [facility] [address] [place] [phone] Dante Haynes, RENZO SN OASIS START OF CARE (SOC) 07/13/2024 Documentation [facility] Neurology [address] [place] [address] Dana Rucker, DIVYA 07/11/2024 Orders Only [facility] [address] [place] [phone] Homehealth, Vera Haro MD 07/10/2024 6:25 AM EDT - 07/13/2024 1:50 PM EDT Hospital Encounter [facility] [address] [place] [address] Ismael Singh MD Morse, Peter, MD Grachev, Maksim, DO Altman, Evan K, , MPH Discharge Disposition: Home-Health Care Svc 07/10/2024 Procedure Pass [facility], Ct Scan - [address] [address] 07/09/2024 10:30 AM EDT Home Care Visit [facility] [address] [place] [address] Merly Matos, PT PT OASIS DISCHARGE VISIT 07/07/2024 1:30 PM EDT Home Care Visit [facility] [address] [place] [address] Miya Monte PTA INVOICE CONTROL CLERK HOME VISIT 07/02/2024 2:00 PM EST Home Care Visit [facility] [address] [place] [address] Miya Monte PTA INVOICE CONTROL CLERK HOME VISIT 07/01/2024 2:30 PM EST Office Visit [facility] [address] [place] [phone] Jose Thakur MD Dyspnea on exertion (Primary Dx) 06/30/2024 1:30 PM EST [facility] [address] [place], [place] [phone] Miya Monte PTA INVOICE CONTROL CLERK HOME VISIT 06/26/2024 2:00 PM EST Home Care Visit [facility] [address] [place] [address] Miya Monte PTA INVOICE CONTROL CLERK HOME VISIT 06/25/2024 9:15 AM EST Home Care Visit [facility] [address] [place] [address] Dante Haynes RN SN DISCIPLINE DISCHARGE VISIT 06/24/2024 10:45 AM EST Home Care Visit [facility] [address] [place] [address] Miya Monte PTA INVOICE CONTROL CLERK HOME VISIT 06/19/2024 2:30 PM EST Office Visit [facility] Infectious Diseases [address] [place] [address] Dana Rucker, DIVYA C. difficile colitis (Primary Dx); Recurrent urinary tract infection 06/18/2024 4:30 PM EST Home Care Visit [facility] [address] [place] [address] Merly Matos, PT PT TFA VISIT 06/16/2024 9:30 AM EST Home Care Visit [facility] [address] [place] [address] Dante Haynes RN SN HOME VISIT 06/10/2024 Refill [facility] [address] [place] [address] Keren Poon, ANALYST PROGRAMMER Medication Refill 06/09/2024 10:30 AM EST Home Care Visit [facility] [address] [place] [address] Dante Haynes RN SN HOME VISIT 06/09/2024 9:30 AM EST Home Care Visit [facility] [address] [place] [address] Miya Monte, EFREM INVOICE CONTROL CLERK HOME VISIT 06/05/2024 11:00 AM EST Home Care Visit [facility] [address] [place] [address] Miya Monte PTA INVOICE CONTROL CLERK HOME VISIT 06/02/2024 10:15 AM EST Home Care Visit [facility] [address] [place] [phone] Miya Monte PTA INVOICE CONTROL CLERK HOME VISIT 06/02/2024 9:00 AM EST Home Care Visit [facility] [address] [place] [phone] Dante Haynes RN SN HOME VISIT 05/29/2024 11:15 AM EST Home Care Visit [facility] [address] [place] [phone] Miya Monte PTA INVOICE CONTROL CLERK HOME VISIT 05/27/2024 2:00 PM EST Office [facility] [address] [place] [address] [place] [address] Keren Poon CNP Encounter for health maintenance [...] 10:15 AM EST Home Care Visit [facility] [address] [place] [phone] Miya Monte PTA INVOICE CONTROL CLERK HOME VISIT 05/26/2024 11:00 AM EST Home Care Visit [facility] [address] [place] [phone] Dante Haynes RN SN HOME VISIT 05/22/2024 1:00 PM EST Home Care Visit [facility] [address] [place], [place] [phone] Asmita Montiel, PT PT EVALUATION 05/22/2024 1:00 PM EST Home Care Visit [facility] [address] [place] [address] Dante Haynes RN SN HOME VISIT 05/22/2024 Telephone [facility] Infectious Diseases [address] [place] [address] [place] [address] Dana Rucker FNP Medication Question (Vancomycin ) 05/21/2024 11:30 AM EST Office Visit [facility] Infectious Diseases [address] [place] [address] [place] [address] Adam Treadwell MD Markens, Beth Ashley, FNP C. difficile colitis (Primary Dx); Recurrent urinary tract infection; Urinary incontinence, unspecified type 05/21/[address] [place] [address] Keren Poon CNP Medication Refill 05/20/2024 9:15 AM EST Home Care Visit [facility] [address] [place] [address] Orlando Mckeon RN SN HOME VISIT 05/15/2024 Home Care Visit [facility] [address] [place] [address] Paulina Garay, PT TELEPHONE ENCOUNTER 05/14/2024 12:00 PM EST Home Care Visit [facility] [address] [place] [address] Andreas Reyes RN SN OASIS START OF CARE (SOC) 05/14/2024 Plan of Care Documentation [facility] [address] [place] [address] 05/14/[address] [place] [address] Keren Poon CNP Request For Order(s) 05/14/2024 Telephone [facility] Infectious Diseases [address] [place] [address] Dana Rucker FNP 05/13/2024 Procedure Pass [facility] Endoscopy Admitting Dept Virtual Department [address] [place] [address] 05/13/2024 Telephone [facility] Infectious Diseases [address] [place] [address] Belinda Cho [place] 05/13/2024 Orders Only [facility] [address] [place] [phone] Homehealth, Interface ProviderMD 05/09/2024 Procedure Pass [facility], Ct Scan - Main [address] [address] 05/07/2024 7:54 PM EST - 05/13/2024 6:17 PM EST Hospital Encounter [facility] [address] [place] [address] Marco Antonio Brooks, Gutierrez Kelly, David Acuña MD Lipkin-Moore, Zachary M, MD Zaman, Tonbira S, MD Arepally, Sandeep, MD Discharge Disposition: Home-Health [place] [facility] 05/07/[address] [place] [address] Keren Poon CNP Yellow Call Diarrhea from Last 3 Months Immunizations Name Administration Dates Next Due COVID-19 (Pre-02/18) Pfizer Vaccine, mRNA, mohan-sucrose, PF 09/11/2021 [id number] FORMULATION 05/13/2009 Influenza High-Dose Quadriva lent Preservative [...] housing situation today? I have jo salas 07/11/2024 How many times have you move [...] Sign Reading Time Taken Comments Blood Pressure 128/84 07/30/2024 3:25 PM EDT Pulse 83 07/30/2024 3:25 PM EDT Temperature 35.8 ??C (96.5 ??F) 07/28/2024 2:36 PM ED T Respiratory Rate 18 07/28/2024 2:36 PM EDT Oxygen Saturation 96% 07/30/2024 3:25 PM EDT Inhaled Oxygen Concentration - - Weight 76.7 kg (169 lb) 07/30/2024 3:25 PM EDT Height 167.6 cm (5' 6 ) 07/10/2024 5:04 PM EDT Body Mass Index 27.28 07/10/2024 5:04 PM EDT Plan of Treatment Upcoming Encounters Date Type Department Care Team (Late st Contact Info) Description 06/06/2024 Procedure Pass [facility], [facility]- [address] [address] 08/04/2024 2:30 AM EDT Home Care Visit [facility] [address] [place] [phone] Orlando Mckeon RN [address] [place] [phone] [email or web address] 08/11/2024 2:00 AM EDT [facility] [address] [place] [phone] Orlando Mckeon RN [address] [place] [phone] [email or web address] 08/18/2024 1:30 AM EDT [facility] [address] [place] [phone] Orlando Mckeon RN [address] [place] [phone] [email or web address] 08/25/2024 1:00 AM EDT Home Care Visit [facility] [address] [place] [phone] Orlando Mckeon RN [address] [place] [address] [email or web address] 09/01/2024 12:30 AM EDT [facility]ment [facility] [address] [place] [phone] Orlando Mckeon RN [address] [place] [phone] 09/18/2024 2:30 PM EDT Office Visit [facility] Infectious Diseases [address] [place] [address] Dana Rucker FNP [address] [address] 11/26/2024 3:30 PM EDT Office Visit [address] [place] [address] Keren Poon, ORI [address] [address] 12/11/2024 2:00 PM EDT Appointment [facility] [address] [place] [address] Keren Poon, ORI [address] [address] 01/07/2025 2:30 PM EDT Office Visit [facility] [address] [place] [address] Jose Thakur MD [address] [place] [address] 01/29/2025 3:00 PM EDT Office Visit [address] [place] [address] Keren Poon, ORI [address] [address] 06/03/2025 2:00 PM EST Office Visit [address] [place] [address] Keren Poon, ANALYST PROGRAMMER 170 [facility], [address] [place] [address] [email or web address] Health Maintenance Due Date Last Done Comments ZOSTER VACCINES (1 of 2) 1974 COLOGUARD 01/18/2000 COLONOSCOPY 01/18/2000 COLORECTAL CANCER SCREENING 01/18/2000 FIT TEST 01/18/2000 FOBT 01/18/2000 SIGMOIDOSCOPY 01/18/2000 VIRTUAL COLONOSCOPY 01/18/2000 MAMMOGRAM 07/28/2023 07/27/2021, 02/27, 05/15/2016, Additional history exists Adult Td,Tdap Booster 09/27/2024 09/27/2014 , 04/14/2010, 07/05/1997 LIPID PANEL 01/01/2025 01/02/2024, 06/27, 07/13/2021, Additional history exists BLOOD PRESSURE 01/29/2025 07/30/2024 DEPRESSION SCREENING 05/27/2025 05/27/2024, 05/09/19 24 CREATININE [...] this topic Medical Devices Implanted Type Area Roguer Device Identifier Shelf Expiration Date Model / Serial / Lot Screw Bone 2.4x28mm Compression Long Thread Headless - [id number] Implanted:Qty: 2 on 12/20/2017 by Patrick Sanchez MD at [facility] NODATA Right: Hand SYNTHES 02.226.3 28 / / Stem Finger Size 20 Metacarpophalangeal Distal Silicone Preflexed - [id number] Implanted:Qty: 1 on 12/20/2017 by Patrick Sanchez MD at [facility] STANDARD Right: Hand [employer] MJ 02/27/2020 [id number] / / [id number] Stem Finger Size 20 Metacarpophalangeal Distal Silicone Preflexed - [id number] Implanted:Qty: 1 on 12/20/2017 by Patrick Sanchez MD at [facility] STANDARD Right: Hand [employer] MJ 08/27/2019 [id number] / / [id number] Stem Finger Joint Metacarpophalangeal Size 10 Silicone Preflexed- Duplicate - Use Ps # [id number] - [id number] Implanted:Qty: 1 on 12/20/2017 by Patrick Sanchez MD at [facility] STANDARD Right: Hand [employer] MJ 02/27/2020 [id number] / / [id number] Implant Finger Size 5 Pre Flexed Cementless Mcp Pyrocarbon Silicone - [id number] Implanted:Qty: 1 on 12/20/2017 by Patrick Sanchez MD at [facility] STANDARD Right: Hand [employer] MJ 02/27/2020 [id number] / / [id number] Right Ankle,Hand,Elbow Left Hand Procedures Procedure Name [...] URINE CULTURE Routine 05/07/2024 4:55 PM EST LIPID PANEL Routine 01/02/2024 2:12 PM EDT [...] included. WBC 7.57 4.00 - 11.00 K/uL [facility] RBC 4.87 4.00 - 5.20 M/uL [facility] HGB 13.9 12.0 - 16.0 g/dL [facility] HCT 44.0 36.0 - 46.0 % [facility] PLT 240 150 - 450 K/uL [facility] MCV 90.3 80.0 - 100.0 fL [facility] MCH 28.5 27.0 - 31.0 pg [facility] MCHC 31.6(L) 32.0 - 36.0 g/dL [facility] RDW 13.0 11.5 - 14.5 % [facility] MPV 9.5 8.4 - 12.0 fL [facility] NRBC 0.00 0.00 /100 WBCs [facility] ABSOLUTE NRBC 0.00 0.00 K/uL [facility] Blood 07/12/2024 5:44 AM EDT 07/12/2024 6:05 AM EDT Yoly Grimes DO, MPH LAB BLOOD ORDERABL ES Performing Organization Address [facility] de Phone Number [address] [address] * (ABNORMAL) C-Reactive Protein (07/12/2024 5:44 AM EDT) Only the most recent of3 resultswithin the time period is included. C REACTIVE PROTEIN 127.1(H) 0.0 - 4.0 mg/L [facility] Blood 07/12/2024 5:44 AM EDT 07/12/2024 6:05 AM EDT Yoly Grimes DO, MPH LAB BLOOD ORDERABL ES Performing Organization Address City/[facility] Co de Phone Number [address] [address] * TSH (07/12/2024 5:44 AM EDT) TSH 2.09 0.27 - 4.20 uIU/mL [facility] 07/12/2024 5:44 AM EDT 07/12/2024 6:05 AM EDT Yoly Grimes DO, MPH LAB BLOOD ORDERABL ES Performing Organization Address [facility]/ZIP Co de Phone Number [address] [address] * (ABNORMAL) Basic metabolic panel (07/12/2024 5:44 AM EDT) Only the most recent of11 resultswithin the time period is included. Pathologist [facility] SODIUM 145 133 - 146 mmol/L [facility] CHLORIDE 116(H) 96 - 108 mmol/L [facility] POTASSIUM 4.0 3.3 - 5.1 mmol/L [facility] CO2 17(L) 21 - 35 mmol/L [facility] BUN 8 6 - 19 mg/dL [facility] CREATININE 0.50 0.5 - 1.5 mg/dL [facility] GLUCOSE 83 70 - 99 mg/dL [facility] CALCIUM 8.3(L) 8.4 - 10.3 mg/dL [facility] EGFR 101 >59 mL/min/1.7 3m2 [facility] Comment:Estimated glomerular filtration rate calculated using the CKD-EPI refit equation. ANION GAP 16 10 - 20 mmol/L [facility] 07/12/2024 5:44 AM EDT 07/12/2024 6:05 AM EDT Yoly Grimes DO, MPH LAB BLOOD ORDERABL ES Performing Organization Address [facility] Co de Phone Number [address] [address] * (ABNORMAL) Comprehensive metabolic panel (07/11/2024 5:48 AM EDT) Only the most recent of2 resultswithin the time period is included. SODIUM 144 133 - 146 mmol/L [facility] POTASSIUM 3.2(L) 3.3 - 5.1 mmol/L [facility] Comment:Specimen slightly he molyzed, result may be falsely elevated. CHLORIDE 112(H) 96 - 108 mmol/L [facility] CO2 21 21 - 35 mmol/L [facility] BUN 7 6 - 19 mg/dL [facility] CREATININE 0.40(L) 0.5 - 1.5 mg/dL [facility] GLUCOSE 101(H) 70 - 99 mg/dL [facility] ALBUMIN 2.7(L) 3.9 - 4.8 g/dL [facility] TOTAL PROTEIN 5.0(L) 6.5 - 8.0 g/dL [facility] CALCIUM 7.5(L) 8.4 - 10.3 mg/dL [facility] ALKALINE PHOSPHATASE 80 39 - 117 U/L [facility] TOTAL BILIRUBIN 0.4 0.0 - 1.2 mg/dL [facility] AST 27 0 - 37 U/L [facility] ALT 28 0 - 40 U/L [facility] GLOBULIN 2.3 1 - 4.8 g/dL [facility] EGFR 107 >59 mL/min/1.7 3m2 [facility] Comment:Estimated glomerular filtration rate calculated using the CKD-EPI refit equation. ANION GAP 14 10 - 20 mmol/L [facility] Blood 07/11/2024 5:48 AM EDT 07/11/2024 6:07 AM EDT Joann Michael NP LAB BLOOD ORDER LEDY [facility] [address] [place] [address] * (ABNORMAL) CBC and differential (07/11/2024 5:48 AM EDT) Only the most recent of7 resultswithin the time period is included. WBC 11.37(H) 4.00 - 11.00 K/uL [facility] RBC 4.71 4.00 - 5.20 M/uL [facility] HGB 13.6 12.0 - 16.0 g/dL [facility] HCT 42.3 36.0 - 46.0 % [facility] PLT 209 150 - 450 K/uL [facility] MCV 89.8 80.0 - 100.0 fL [facility] MCH 28.9 27.0 - 31.0 pg [facility] MCHC 32.2 32.0 - 36.0 g/dL [facility] RDW 13.0 11.5 - 14.5 % [facility] MPV 9.3 8.4 - 12.0 fL [facility] NRBC 0.00 0.00 /100 WBCs [facility] ABSOLUTE NRBC 0.00 0.00 K/uL [facility] DIFF METHOD Auto [facility] NEUTS 74.2 48.0 - 76.0 % [facility] LYMPHS 8.4(L) 18.0 - 41.0 % [facility] MONOS 12.8(H) 4.0 - 11.0 % [facility] EOS 3.9 0.0 - 5.0 % [facility] BASOS 0.4 0.0 - 1.5 % [facility] Granulocytes, immature (%) 0.3 0.0 - 0.9 % [facility] ABSOLUTE NEUTS 8.45(H) 1.92 - 7.60 K/uL [facility] ABSOLUTE LYMPHS 0.95 0.72 - 4.10 K/uL [facility] ABSOLUTE MONOS 1.46(H) 0.16 - 1.10 K/uL [facility] ABSOLUTE EOS 0.44 0.00 - 0.50 K/uL [facility] ABSOLUTE BASOS 0.04 0.00 - 0.15 K/uL [facility] Granulocytes, immature 0.03 0.00 - 0.09 K/uL [facility] Blood 07/11/2024 5:48 AM EDT 07/11/2024 6:07 AM EDT Joann Michael NP LAB BLOOD ORDER LEDY [facility] [address] [place] [address] * (ABNORMAL) Phosphorus (07/11/2024 5:48 AM EDT) Only the most recent of10 resultswithin the time period is included. PHOSPHORUS 2.2(L) 2.7 - 4.5 mg/dL [facility] Blood 07/11/2024 5:48 AM EDT 07/11/2024 6:07 AM EDT Joann Prescott Alec [employer] LAB BLOOD ORDER LEDY Performing Organization Address City/[facility]/ZIP Co de Phone Number [address] [address] * Magnesium (07/11/2024 5:48 AM EDT) Only the most recent of9 resultswithin the time period is included. MAGNESIUM 1.8 1.6 - 2.6 mg/dL [facility] Blood 07/11/2024 5:48 AM EDT 07/11/2024 6:07 AM EDT Joann Dotyperance [employer] LAB BLOOD ORDER LEDY Performing Organization Address [facility] Co de Phone Number [address] [address] * CT ABDOMEN/PELVIS WITH CONTRAST (07/10/2024 1:09 [...] period is included. C.DIFFICILE PCR Positive(A) Negative [facility] Comment:C.difficile gene was detected. C.difficile toxin assay has been reflexed. See separate report. C.DIFFICILE STRAIN PRESUMPTIVE NEGATIVE PRESUMPTIVE NEGATIVE [facility] Comment:Detection of 027/NAP 1/BI strains of C.difficile is presumptive and is solely for epidemiological purposes and is not intended to guide or monitor treatment of infections. Stool (Stool) 07/10/2024 9:2 5 AM EDT 07/10/2024 9:30 AM EDT Ismael Singh MD MICROBIOLOGY - [facility] AL ORDERABLES [facility] [address] [place] [address] * (ABNORMAL) Clostridioides (Clostridium) difficile Antigen/Toxin Assay (07/10/2024 9:25 AM EDT) Only the most recent of2 resultswithin the time period is included. C. diff GDH Positive(A) Negative [facility] C. DIFFICILE TOXIN POSITIVE for Clostridium difficile toxin.(A) NEGATIVE for Clostridium difficile toxin. [facility] 07/10/2024 9:25 AM EDT 07/10/2024 9:30 AM EDT Ismael Singh MD MICROBIOLOGY - GENER AL ORDERABLES Performing Organization Address [facility] Co de Phone Number [address] [address] * COVID Pandemic Respiratory Viral Order (PRO) (07/10/2024 8:23 AM EDT) Test Ordered COVID, Flu has been ordered [facility] Specimen Source/Descriptio n NASOPHARYNGEAL SWAB [facility] Influenza A PCR Not Detected Not Detected [facility] Influenza B PCR Not Detected Not Detected [facility] SARS-CoV 2 (COVID-19) PCR Not Detected Not Detected [facility] Comment: SARS-CoV-2 not detected Negative results do not preclude SARS-CoV-2 infection and should not be used as the sole basis for patient management decisions. Negative results must be combined with clinical observations, patient history, and epidemiological information. Other (Nasopharyngeal swab) 07/10/2024 8:23 AM EDT 07/10/2024 9:29 AM EDT Ismael Singh MD BODY FLUIDS AND STOO LS ORDERABLES Performing Organization Address [facility] de Phone Number [address] [address] * ECG 12-LEAD (07/10/2024 7:49 AM EDT) Only the most recent of2 resultswithin the time period is included. Ventricular Rate EKG/MIN 90 BPM [facility] Atrial Rate 90 BPM [facility] OK Interval 178 ms [facility] QRS Duration 96 ms [facility] QT Interval 378 ms [facility] QTC Interval 462 ms [facility] P [place] 15 degrees [facility] R Wave [place] -18 degrees [facility] T Wave [place] 6 degrees [facility] 07/10/2024 7:49 AM EDT [...] Singh MD ECG ORDERABLES Performing Organization Address City/[facility]/ZIP Co de Phone Number [facility] * Blood Culture, Routine (07/10/2024 7:16 AM EDT) Only the most recent of2 resultswithin the time period is included. Pathologist [facility] [place] Special Requests None 07/10/2024 7:17 AM EDT [facility] BLOOD CULTURE NO GROWTH 5 DAYS 07/15/2024 7:45 AM EDT [facility] Blood (Blood) 07/10/2024 7:1 6 AM EDT 07/10/2024 7:33 AM EDT Comment:BLOOD Ismael Singh MD MICROBIOLOGY - GENER AL ORDERABLES Performing Organization Address City/[facility]/ZIP Co de Phone Number [address] [address] * (ABNORMAL) LFTs (hepatic panel) (07/10/2024 7:16 AM EDT) Only the most recent of2 resultswithin the time period is included. ALKALINE PHOSPHATASE 67 39 - 117 U/L [facility] TOTAL BILIRUBIN 0.4 0.0 - 1.2 mg/dL [facility] DIRECT BILIRUBIN 0.2 0.0 - 0.2 mg/dL [facility] Bilirubin (Indirect) 0.2 0 - 1.5 mg/dL [facility] AST 17 0 - 37 U/L [facility] ALT 9 0 - 40 U/L [facility] TOTAL PROTEIN 6.5 6.5 - 8.0 g/dL [facility] ALBUMIN 3.7(L) 3.9 - 4.8 g/dL [facility] GLOBULIN 2.8 1 - 4.8 g/dL [facility] A/G Ratio 1.32 1.00 - 4.80 RATIO [facility] Blood 07/10/2024 7:16 AM EDT 07/10/2024 7:35 AM EDT Ismael Singh MD LAB BLOOD ORDERABLES Performing Organization Address [facility] Co de Phone Number [address] [address] * (ABNORMAL) Lipase (07/10/2024 7:16 AM EDT) Only the most recent of2 resultswithin the time period is included. LIPASE 7(L) 16 - 63 U/L [facility] Blood 07/10/2024 7:16 AM EDT 07/10/2024 7:35 AM EDT Ismael Singh MD LAB BLOOD ORDERABLES Performing Organization Address [facility] Co de Phone Number [address] [address] * Lactate (07/10/2024 7:16 AM EDT) LACTATE 0.79 0.50 - 2.20 mmol/L [facility] Blood 07/10/2024 7:16 AM EDT 07/10/2024 7:35 AM EDT Ismael Singh MD LAB BLOOD ORDERABLES Performing Organization Address [facility] de Phone Number [address] [address] * CT ABDOMEN/PELVIS WITH CONTRAST (05/09/2024 2:49 [...] Stool culture (05/07/2024 9:57 PM EST) Pathologist [facility] [place] Special Requests None 05/07/2024 9:57 PM EST [facility] Stool Culture NO SALMONELLA, SHIGELLA OR CAMPYLOBACTER ISOLATED 05/11/2024 7:55 AM EST [facility] Stool (Stool) 05/07/2024 9:5 7 PM EST 05/07/2024 10:46 PM EST Marco Antonio Brooks DO MICROBIOLOGY - GENER AL ORDERABLES Performing Organization Address City/[facility]/ZIP Co de Phone Number [address] [address] * (ABNORMAL) PT-INR (05/07/2024 5:16 PM EST) [facility] PT 14.3(H) 10.2 - 12.9 sec [facility] INR 1.3(H) 0.9 - 1.1 [facility] Comment:Therapeutic range fo r oral Vitamin K antagonists: 2.0-3.5 Blood 05/07/2024 5:16 PM EST 05/07/2024 5:20 PM EST Ton Fischer MD LAB BLOOD ORDERABLE S Performing Organization Address City/[facility]/ZIP Co de Phone Number [address] [address] * (ABNORMAL) Urinalysis w/reflex Urine Culture (05/07/2024 4:55 PM EST) Pathologist [facility] [place] COLOR Yellow Yellow [facility] CLARITY HAZY [facility] GLUCOSE Negative Negative [facility] BILI Negative Negative [facility] KETONES Negative Negative [facility] SPECIFIC GRAVITY <1.005 1.005 - 1.030 [facility] BLOOD Negative Negative [facility] PH 6.0 5.0 - 8.0 [facility] Protein-UA Negative Negative [facility] NITRITE Positive(A) Negative [facility] Leukocyte esterase, ur 2+(A) Negative [facility] Urine (Urine) 05/07/2024 4:5 5 PM EST 05/07/2024 6:31 PM EST Ton Fischer MD URINE ORDERABLES Performing Organization Address [facility] Co de Phone Number [address] [address] * (ABNORMAL) Urine Culture (05/07/2024 4:55 PM EST) Special Requests None Reflexed from [id number] 05/07/2024 6:46 PM EST [facility] Urine Culture >100,000 colony forming units per mL MIXED RAVEN (3 OR MORE COLONY TYPES) Culture indicates contamination. Please resubmit if necessary. Isolates include 3 morphologies of enteric Gram negative rods and gram positive cocci.(A) 05/10/2024 10:06 AM EST [facility] Urine 05/07/2024 4:55 PM EST 05/07/2024 6:31 PM EST Ton Fischer MD MICROBIOLOGY - GENE RAL ORDERABLES Performing Organization Address [facility] Co de Phone Number [address] [address] * (ABNORMAL) Urine sediment (05/07/2024 4:55 PM EST) WBC 21-49(A) NONE SEEN /hpf [facility] RBC 3-5(A) NONE SEEN /hpf [facility] URINE EPITHELIAL 5-10(A) NONE SEEN [facility] MUCUS NONE SEEN NONE SEEN /hpf [facility] BACTERIA 3+(A) NONE SEEN /hpf [facility] YEAST 1+(A) NONE SEEN /hpf [facility] 05/07/2024 4:55 PM EST 05/07/2024 6:31 PM EST Ton Fischer MD URINE ORDERABLES Performing Organization Address [facility] Co de Phone Number [address] [address] * (ABNORMAL) Lipid panel (01/02/2024 2:12 PM EDT) HDL 63 mg/dL [facility] Comment: ? Interpretation <40 mg/dL: Low HDL cholesterol (major risk factor for CHD) Greater than or equal to 60 mg/dL: High HDL cholesterol ( negative risk factor for CHD) HDL - cholesterol is affected by a number of factors, e.g. smoking, excerise, hormones, sex and age. CHOLESTEROL 169 0 - 240 mg/dL [facility] TRIGLYCERIDES 102 30 - 160 mg/dL [facility] LDL 86 50 - 129 mg/dL [facility] Comment: LDL levels in terms of risk for coronary heart disease: <100 mg/dL: Optimal 100-129 mg/dL: Near or above optimal 130-159 mg/dL: Borderline high 160-189 mg/dL: High >190 mg/dL: Very High CARDIAC RISK RATIO 2.7(L) 3.3 - 4.4 C [facility] Blood 01/02/2024 2:12 PM EDT 01/02/2024 2:18 PM EDT Keren Poon CNP LAB BLOOD OR DERABLES Performing Organization Address [facility] Co de Phone Number [address] [address] * Hepatitis C antibody, qualitative (01/05/2022 1:56 PM EDT) HCV NON-REACTIV E NON-REACTI VE [facility] Blood 01/05/2022 1:56 PM EDT 01/05/2022 1:58 PM EDT Marleny Acosta PA LAB BLOOD ORDERA BLES [facility] [address] [place] [address] * BI MAMMOGRAM SCREENING WITH TOMOSYNTHESIS WITH [...] Months Recommendation: Left Mammography Screening Ita Rodriguez ANALYST PROGRAMMER IMG MG EXAMS * BD DXA AXIAL [...] bone mineral density was calculated at 0.643 gm/ro0oajx a T- score of -1.9 falling within [...] and total hip osteopenia. Mode Ramos MD [facility] BD BELTRAN NE DENSITY DEXA from Last 3 Months or Most Recently Relevant to Health Maintenance Additional Health Concerns Infection Onset Date Last Indicated C. 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 MOLST 08/22/2020 4:20 PM Healthcare [...] Name Relationship Healthcare Agent Relationship Communication Néstor Smithky Spouse .Primary Healt h Care Agent (Proxy form on file) Care Teams Pediatric Radiologist Relationship Specialty Start Date End Date Keren Poon CNP [address] [place] [address], [address] [place] [address] PCP - General Family Medicine 01/31/23 Cash Fernandes MD [address] [place] [address] Gastroenterology 08/23/20 Willi Wells MD [address] Vin[address]ak 304_[place] [address] Rheumatology 02/04/24 Jose Thakur MD [address] [place] [address] Music Industry Intern Pulmonary Disease 03/17/24 Dana Rucker FNP [address] [facility], 2nd [place] [address] Nurse Practitioner Infectious Diseases 05/21/24 Jonathan Alvarez MD [address] [place] [address], [address] [place] [address] [email or web address] Urology 05/14/23 Anival Borja MD [address] [place] [address], [address] [place] [address] Neurologist Neurology 01/04/23 Lyndsay Reynoso FNP [address] [place] [address] [email or web address] Nurse Practitioner Pain Medicine 05/27/22 Gutierrez Pittman MD [address] [place] [phone] Metal Rivet Machine Operator Cardiology 05/27/24 Additional Source Comments The information contained in this document represents components of the legal health record. It is not the complete legal health record.[facility]
--- OUTSIDE RECORDS SUMMARY | 2024-07-31 10:53 | XMS_ITS | Encounter Summary ---
Author Organization [facility] Address [address] [place] [address] Phone Care Team Providers Care Anthropologist Physical Name Role Phone Cash Fernandes MD Unavailable [phone] Keren Poon [facility] Primary Care Provid er Chavo Jack MD Unavailable Willi Wells MD Unavailable Jose Thakur MD Unavailable Dana Rucker DRY PLASTERER Unavailable [phone] Jonathan Alvarez MD Unavailable [phone] Anival Borja MD Unavailable Lyndsay Reynoso DRY PLASTERER Unavailable [phone] Gutierrez Pittman MD Unavailable [phone] Encounter Details Date Type Department Care Team (Late st Contact Info) Description 04/10/2024 Procedure Pass [facility], Ct Scan - [address] [address] Social History Tobacco Use Types Packs/Day Years [...] Contact Info) Description 06/06/2024 Procedure Pass [address] [address] 08/04/2024 2:30 AM EDT Home Care Visit [facility] [address] [place] [phone] Orlando Mckeon RN [address] [place] [address] [email or web address] 08/11/2024 2:00 AM EDT Home Care Visit [facility] [address] [place] [address] Orlando Mckeon RN [address] [place] [address] 08/18/2024 1:30 AM EDT [facility] [address] [place] [phone] Orlando Mckeon RN [address] [place] [address] 08/25/2024 1:00 AM EDT Home Care Visit [facility] [address] [place] [phone] Orlando Mckeon RN [address] [place] [address] 09/01/2024 12:30 AM EDT Appointment [facility] [address] [place] [address] Orlando Mckeon RN [address] [place] [address] 09/18/2024 2:30 PM EDT Office Visit [facility] Infectious Diseases [address] [place] [address] Dana Rucker FNP [address] [address] 11/26/2024 3:30 PM EDT Office Visit [address] [place] [address] Keren Poon, ORI [address] [address] 12/11/2024 2:00 PM EDT Appointment [address] [address] Keren Poon, GLASS BLOWER [address] [place] [address] 01/07/2025 2:30 PM EDT Office Visit [facility]monary, Allergy and Critical Care Medicine [address] [place] [address] Jose Thakur MD [address] [place] [address] 01/29/2025 3:00 PM EDT Office Visit [address] [place] [address] Keren Poon CNP 170 [facility], 2nd [facility] [place] [address] [email or web address] 06/03/2025 2:00 PM EST Office Visit [address] [place] [address] Keren Poon CNP 170 [facility], [address] [place] [address] [place] [address] [email or web address] documented as of this encounter Visit Diagnoses [...] documented as of this encounter Care Teams Anthropologist Physical Relationship Specialty Start Date End Date Keren Poon CNP [address] [place] [address], [address] [place] [address] [place] [address] [email or web address] PCP - General Family Medicine 01/31/23 Cash Fernandes MD [address] [place] [address] [email or web address] Gastroenterology 08/23/20 Chavo Jack MD [address] [place] [address] [email or web address] Insurance Assigned Provider 08/03/23 05/04/24 Willi Wells MD [address] [place] [address] Drive [facility] 304_[place] [address] Rheumatology 02/04/24 Jose Thakur MD [address] [place] [address] [email or web address] Cracker Dough Mixer Pulmonary Disease 03/17/24 Dana Rucker FNP [address] [facility], 2nd [place] [address] [email or web address] Nurse Practitioner Infectious Diseases 05/21/24 Jonathan Alvarez MD [address] [place] [address], [address] [place] [address] [email or web address] Urology 05/14/23 Anival Borja MD [address] [place] [address], [address] [place] [address] [email or web address] Neurologist Neurology 01/04/23 Lyndsay Reynoso FNP [address] [place] [address] [address] [place] [address] [email or web address] Nurse Practitioner Pain Medicine 05/27/22 Gutierrez Pittman MD [address] [place] [address] House Carpenter Cardiology 05/27/24 documented as of this encounter Additional Source Comments The information contained in this document represents components of the legal health record. It is not the complete legal health record.[facility]
--- OUTSIDE RECORDS SUMMARY | 2024-07-31 10:53 | XMS_ITS | Encounter Summary ---
Author Organization [facility] Address [address] [place] [address] Care Team Providers Care Mechanic Chief Name Role Phone Charly Saxena Primary Care Provider [phone] Cheryl Calderon MD Primary Care Provider Encounter Details Date Type Department Care Team (Late st Contact Info) Description 01/18/2016 Orders Only [facility] Rheumatology [address] [place] [address] Abel Fierro MD [address] [place] [address] Social History Tobacco Use Types Packs/Day Years [...] - 0.99 mg/dL [facility] Comment: {CREATININE {[id number]) For patients >49 years of age, the reference limit for Creatinine is approximately 13% higher for people identified as -Namibian. GFR 81 > OR = 60 mL/min/1. 73m2 [facility] Comment:{eGFR NON-AFR. AMERI CAN {[id number]) GFR () 94 > OR = 60 mL/min/1. 73m2 [facility] Comment:{eGFR AMERIC AN {[id number]) 01/18/2016 1:17 PM EDT 01/18/2016 9:39 PM [...] needs for GFR calculation. Resulting Agency Comment [id number] us Abel Fierro MD LAB SAME DAY RESULT Final Resul t [facility] [address] [place] [address] * (ABNORMAL) ALANINE AMINOTRANSFERASE (ALT), SERUM (01/18/2016 1:17 PM EDT) ALT (SGPT) 48(H) 6 - 29 U/L [facility] Comment:{ALT {[id number]) 01/18/2016 1:17 PM EDT 01/18/2016 9:39 PM EDT Narrative Resulting Agency Comment [id number] us Abel Fierro MD LAB SAME DAY RESULT Final Resul t Performing Organization Address City/[facility] Co de Phone Number [facility] [address] [place] [address] * ASPARTATE AMINOTRANSFERASE (AST), SERUM (01/18/2016 1:17 PM EDT) AST (SGOT) 27 10 - 35 U/L [facility] Comment:{AST {[id number]) 01/18/2016 1:17 PM EDT 01/18/2016 9:39 PM EDT Narrative Resulting Agency Comment [id number] us Abel Fierro MD LAB SAME DAY RESULT Final Resul t Performing Organization Address [facility] Co de Phone Number [facility] [address] [place] [address] * (ABNORMAL) CBC INCLUDES DIFFERENTIAL AND PLATELET COUNT (01/18/2016 1:17 PM EDT) WBC 11.4(H) 3.8 - 10.8 Thousand/ uL [facility] Comment:{WHITE BLOOD CELL CO UNT {[id number]) RBC 5.40(H) 3.80 - 5.10 Million/u L [facility] Comment:{RED BLOOD CELL COUN T {[id number]) Hemoglobin 14.3 11.7 - 15.5 g/dL [facility] Comment:{HEMOGLOBIN {[id number]) Hematocrit 45.8(H) 35.0 - 45.0 % [facility] Comment:{HEMATOCRIT {[id number]) MCV 84.8 80.0 - 100.0 fL [facility] Comment:{MCV {[id number]) MCH 26.5(L) 27.0 - 33.0 pg [facility] Comment:{MCH {[id number]) MCHC 31.3(L) 32.0 - 36.0 g/dL [facility] Comment:{MCHC {[id number]) RDW 16.5(H) 11.0 - 15.0 % [facility] Comment:{RDW {[id number]) PLT 289 140 - 400 Thousand/ uL [facility] Comment:{PLATELET COUNT {[id number]) MPV 8.4 7.5 - 11.5 fL [facility] Comment:{MPV {[id number]) Neutrophils # 9793(H) 1500 - 7800 cells/uL [facility] Comment:{ABSOLUTE NEUTROPHIL S {[id number]) Lymphocytes # 809(L) 850 - 3900 cells/uL [facility] Comment:{ABSOLUTE LYMPHOCYTE S {[id number]) Monocytes # 638 200 - 950 cells/uL [facility] Comment:{ABSOLUTE MONOCYTES {[id number]) Eosinophils # 91 15 - 500 cells/uL [facility] Comment:{ABSOLUTE EOSINOPHIL S {[id number]) Basophils # 68 0 - 200 cells/uL [facility] Comment:{ABSOLUTE BASOPHILS {[id number]) Neutrophils % 85.9 % [facility] Comment:{NEUTROPHILS {[id number]) Lymphocytes % 7.1 % [facility] Comment:{LYMPHOCYTES {[id number]) Monocytes % 5.6 % [facility] Comment:{MONOCYTES {[id number]) Eosinophils % 0.8 % [facility] Comment:{EOSINOPHILS {[id number]) Basophils % 0.6 % [facility] Comment:{BASOPHILS {[id number]) 01/18/2016 1:17 PM EDT 01/18/2016 9:39 PM EDT Narrative Resulting Agency Comment [id number] us Abel Fierro MD LAB SAME DAY RESULT Final Resul t [facility] [address] [place] [address] documented in this encounter Visit Diagnoses Diagnosis Rheumatoid arthritis involving multiple sites with positive rheumatoid factor (HCC) [M05.79] documented in this encounter Care Teams Mechanic Chief Relationship Specialty Start Date End Date Charly Saxena [facility] [address] [place] [address] PCP - General Internal Medicine 05/25/13 07/16/17 Cheryl Calderon MD [facility] Medicine [address] [place] [address] PCP - General Internal Medicine 07/17/17 documented as of this encounter
--- OUTSIDE RECORDS SUMMARY | 2024-07-31 10:53 | XMS_ITS | Encounter Summary ---
Author Organization [facility] Address [address] [place] [address] Care Team Providers Care Team Primary Care Physician Name Role Phone Alberto Pacheco Primary Care Provider Charly Saxena Primary Care Provider [phone] Cheryl Calderon MD Primary Care Provider [phone] Encounter Details Date Type Department Care Team (Late st Contact Info) Description 10/28/2012 Orders Only [facility] Rheumatology [address] [place] [address] Abel Fierro MD [address] [place] [address] Social History Tobacco Use Types Packs/Day Years [...] - 1.05 mg/dL [facility] Comment: {CREATININE {[id number]) For patients >49 years of age, the reference limit for Creatinine is approximately 13% higher for people identified as -Malian. GFR 91 > OR = 60 mL/min/1. 73m2 [facility] Comment:{eGFR NON-AFR. AMERI CAN {[id number]) GFR () 106 > OR = 60 mL/min/1. 73m2 [facility] Comment:{eGFR AMERIC AN {[id number]) 10/28/2012 2:15 PM EDT 10/28/2012 11:59 PM [...] needs for GFR calculation. Resulting Agency Comment [id number] us Abel Fierro MD LAB SAME DAY RESULT Final Resul t [facility] [address] [place] [address] * ALANINE AMINOTRANSFERASE (ALT), SERUM (10/28/2012 2:15 PM EDT) ALT (SGPT) 21 6 - 29 U/L [facility] Comment:{ALT {[id number]) 10/28/2012 2:15 PM EDT 10/28/2012 11:59 PM EDT Narrative Resulting Agency Comment [id number] Abel Fierro MD LAB SAME DAY RESULT Final Resul t Performing Organization Address City/[facility]/ZIP Co de Phone Number [facility] [address] [place] [address] * ASPARTATE AMINOTRANSFERASE (AST), SERUM (10/28/2012 2:15 PM EDT) Pathologist [facility] AST (SGOT) 19 10 - 35 U/L [facility] Comment:{AST {[id number]) 10/28/2012 2:15 PM EDT 10/28/2012 11:59 PM EDT Narrative Resulting Agency Comment [id number] Abel Fierro MD LAB SAME DAY RESULT Final Resul t Performing Organization Address [facility] Co de Phone Number [facility] [address] [place] [address] * (ABNORMAL) CBC INCLUDES DIFFERENTIAL AND PLATELET COUNT (10/28/2012 2:15 PM EDT) Pathologist [facility] WBC 10.8 3.8 - 10.8 Thousand/ uL [facility] Comment:{WHITE BLOOD CELL CO UNT {[id number]) RBC 5.06 3.80 - 5.10 Million/u L [facility] Comment:{RED BLOOD CELL COUN T {[id number]) Hemoglobin 12.9 11.7 - 15.5 g/dL [facility] Comment:{HEMOGLOBIN {[id number]) Hematocrit 41.7 35.0 - 45.0 % [facility] Comment:{HEMATOCRIT {[id number]) MCV 82.5 80.0 - 100.0 fL [facility] Comment:{MCV {[id number]) MCH 25.5(L) 27.0 - 33.0 pg [facility] Comment:{MCH {[id number]) MCHC 31.0(L) 32.0 - 36.0 g/dL [facility] Comment:{MCHC {[id number]) RDW 14.6 11.0 - 15.0 % [facility] Comment:{RDW {[id number]) PLT 367 140 - 400 Thousand/ uL [facility] Comment:{PLATELET COUNT {[id number]) MPV 7.3(L) 7.5 - 11.5 fL [facility] Comment:{MPV {[id number]) Neutrophils # 5692 1500 - 7800 cells/uL [facility] Comment:{ABSOLUTE NEUTROPHIL S {[id number]) Lymphocytes # 3964(H) 850 - 3900 cells/uL [facility] Comment:{ABSOLUTE LYMPHOCYTE S {[id number]) Monocytes # 832 200 - 950 cells/uL [facility] Comment:{ABSOLUTE MONOCYTES {[id number]) Eosinophils # 248 15 - 500 cells/uL [facility] Comment:{ABSOLUTE EOSINOPHIL S {[id number]) Basophils # 65 0 - 200 cells/uL [facility] Comment:{ABSOLUTE BASOPHILS {[id number]) Neutrophils % 52.7 % [facility] Comment:{NEUTROPHILS {[id number]) Lymphocytes % 36.7 % [facility] Comment:{LYMPHOCYTES {[id number]) Monocytes % 7.7 % [facility] Comment:{MONOCYTES {[id number]) Eosinophils % 2.3 % [facility] Comment:{EOSINOPHILS {[id number]) Basophils % 0.6 % [facility] Comment:{BASOPHILS {[id number]) 10/28/2012 2:15 PM EDT 10/28/2012 11:59 PM EDT Narrative Resulting Agency Comment [id number] us Abel Fierro MD LAB SAME DAY RESULT Final Resul t [facility] [address] [place] [address] documented in this encounter Visit Diagnoses Diagnosis Rheumatoid arthritis(714.0) Rheumatoid arthritis documented in this encounter Care Teams Team Primary Care Physician Relationship Specialty Start Date End Date Alberto Pacheco [address] [place] [address] PCP - General 07/19/08 05/24/13 Charly Saxena [facility] [address] [place] [address] PCP - General Internal Medicine 05/25/13 07/16/17 Cheryl Calderon MD [facility] Adult Medicine [address] [place] [address] PCP - General Internal Medicine 07/17/17 documented as of this encounter
--- OUTSIDE RECORDS SUMMARY | 2024-07-31 10:53 | XMS_ITS | Encounter Summary ---
Author Organization [facility] Address [address] [place] [address] Care Team Providers Care Speech Pathology Teacher Name Role Phone Alberto Pacheco Primary Care Provider [phone] Charly Saxena Primary Care Provider [phone] Cheryl Calderon MD Primary Care Provider [phone] Reason for Visit * Reason Comments E-prescribing Refill Request Encounter Details Date Type Department Care Team (Late st Contact Info) Description 05/11/2013 Refill [facility] Rheumatology [address] [place] [phone] Anival Bales MD E-prescribing Refill Request Social [...] of her nearly 4-year-old grandson Harshil in [place]. Next OV: Future Appointments Date Time Provider [...] on filedocumented in this encounter Care Teams Speech Pathology Teacher Relationship Specialty Start Date End Date Alberto Pacheco [address] [place] [address] PCP - General 07/19/08 05/24/13 Charly Saxena [facility] [address] [place] [address] PCP - General Internal Medicine 05/25/13 07/16/17 Cheryl Calderon MD [facility] Adult Medicine [address] [place] [address] PCP - General Internal Medicine 07/17/17 documented as of this encounter
--- OUTSIDE RECORDS SUMMARY | 2024-07-31 10:53 | XMS_ITS | Encounter Summary ---
Author Organization [facility] Address [address] [place] [address] Care Team Providers Care Chief Crew Scheduler Name Role Phone Charly Saxena Primary Care Provider [phone] Cheryl Calderon MD Primary Care Provider [phone] Encounter Details Date Type Department Care Team (Late st Contact Info) Description 06/13/2015 Orders Only [facility] Rheumatology [address] [place] [address] Abel Fierro MD [address] [place] [address] Social History Tobacco Use Types Packs/Day Years [...] of this encounter Results * Due to [place] [...] presence documented in this encounter Care Teams Chief Crew Scheduler Relationship Specialty Start Date End Date Charly Saxena [facility] [place] [address] PCP - General Internal Medicine 05/25/13 07/16/17 Cheryl Calderon MD [facility] Adult Medicine [address] [place] [address] PCP - General Internal Medicine 07/17/17 documented as of this encounter
--- OUTSIDE RECORDS SUMMARY | 2024-07-31 10:53 | XMS_ITS | Encounter Summary ---
Author Organization [facility] Address [address] [place] [address] Phone Care Team Providers Care Medical Office Scheduler Name Role Phone Cash Fernandes MD Unavailable [phone] Keren Poon [facility] Primary Care Provid er Chavo Jack MD Unavailable Willi Wells MD Unavailable Jose Thakur MD Unavailable [phone] Dana Rucker FLEET DRIVER Unavailable [phone] Jonathan Alvaerz MD Unavailable [phone] Anival Borja MD Unavailable Lyndsay Reynoso FLEET DRIVER Unavailable [phone] Gutierrez Pittman MD Unavailable [phone] Encounter Details Date Type Department Care Team (Late st Contact Info) Description 04/10/2024 Procedure Pass [facility], Ct Scan - [address] [address] Social History Tobacco Use Types Packs/Day Years [...] st Contact Info) Description 06/06/2024 Procedure Pass [address] [address] 08/04/2024 2:30 AM EDT Home Care Visit [facility] [address] [place] [phone] Orlando Mckeon RN [address] [place] [address] [email or web address] 08/11/2024 2:00 AM EDT Home Care Visit [facility] [address] [place] [address] Orlando Mckeon RN [address] [place] [address] 08/18/2024 1:30 AM EDT [facility] [address] [place] [phone] Orlando Mckeon RN [address] [place] [address] 08/25/2024 1:00 AM EDT Home Care Visit [facility] [address] [place] [phone] Orlando Mckeon RN [address] [place] [address] 09/01/2024 12:30 AM EDT Appointment [facility] [address] [place] [address] Orlando Mckeon RN [address] [place] [address] 09/18/2024 2:30 PM EDT Office Visit [facility] Infectious Diseases [address] [place] [address] Dana Rucker FNP [address] [address] 11/26/2024 3:30 PM EDT Office Visit [address] [place] [address] Keren Poon, ORI [address] [address] 12/11/2024 2:00 PM EDT Appointment [address] [address] Keren Poon, SHERIFF OFFICER [address] [place] [address] 01/07/2025 2:30 PM EDT Office Visit [facility] [address] [place] [address] Jose Thakur MD [address] [place] [address] 01/29/2025 3:00 PM EDT Office Visit [address] [place] [address] Keren Poon CNP 170 [facility] [place] [address] [email or web address] 06/03/2025 2:00 PM EST Office Visit [address] [place] [address] Keren Poon CNP 170 [facility], [address] [place] [address] [place] [address] [email or web address] documented as of this encounter Visit Diagnoses [...] documented as of this encounter Care Teams Medical Office Scheduler Relationship Specialty Start Date End Date Keren Poon CNP [address] [place] [address], [address] [place] [address] [place] [address] [email or web address] PCP - General Family Medicine 01/31/23 Cash Fernandes MD [address] [place] [address] [email or web address] Gastroenterology 08/23/20 Chavo Jack MD [address] [place] [address] [email or web address] Insurance Assigned Provider 08/03/23 05/04/24 Willi Wells MD [address] [place] [address] Drive [facility] [address] Rheumatology 02/04/24 Jose Thakur MD [address] [place] [address] [email or web address] Buildings And Grounds Superintendent Pulmonary Disease 03/17/24 Dana Rucker FNP 15 [facility], 2nd [place] [address] [email or web address] Nurse Practitioner Infectious Diseases 05/21/24 Jonathan Alvarez MD [address] [place] [address], [address] [place] [address] [email or web address] Urology 05/14/23 Anival Borja MD [address] [place] [address], [address] [place] [address] [email or web address] Neurologist Neurology 01/04/23 Lyndsay Reynoso FNP [address] [place] [address] [address] [place] [address] [email or web address] Nurse Practitioner Pain Medicine 05/27/22 Gutierrez Pittman MD [address] [place] [address] Teacher Counselor Cardiology 05/27/24 documented as of this encounter Additional Source Comments The information contained in this document represents components of the legal health record. It is not the complete legal health record.[facility]
--- OUTSIDE RECORDS SUMMARY | 2024-07-31 10:53 | XMS_ITS | Encounter Summary ---
Author Organization [facility] Address [address] [place] [address] Care Team Providers Care Kraft Mill Operator Name Role Phone Charly Saxena Primary Care Provider [phone] Cheryl Calderon MD Primary Care Provider [phone] Encounter Details Date Type Department Care Team (Late st Contact Info) Description 07/29/2014 Orders Only [facility] Rheumatology [address] [place] [address] Abel Fierro MD [address] [place] [address] Social History Tobacco Use Types Packs/Day Years [...] Routine 07/29/2014 11:19 AM EDT Rheumatoid arthritis(714.0) ([facility]) ERYTHROCYTE SEDIMENTATION RATE (ESR) Routine 07/29/2014 11:19 AM EDT Rheumatoid arthritis(714.0) ([facility]) CBC INCLUDES DIFFERENTIAL AND PLATELET COUNT Routine 07/29/2014 11:19 AM EDT Rheumatoid arthritis(714.0) ([facility]) ALANINE AMINOTRANSFERASE (ALT), SERUM Routine 07/29/2014 11:19 AM EDT Rheumatoid arthritis(714.0) ([facility]) ASPARTATE AMINOTRANSFERASE (AST), SERUM Routine 07/29/2014 11:19 AM EDT Rheumatoid arthritis(714.0) ([facility]) CREATININE WITH GLOMERULAR FILTRATION RATE, ESTIMATED (EGFR) Routine 07/29/2014 11:19 AM EDT Rheumatoid arthritis(714.0) ([facility]) documented in this encounter Results * Due to [place] state law, this organization might not be sharing negative HIV tests. * C-REACTIVE PROTEIN (CRP) - INFLAMMATION (07/29/2014 11:19 AM EDT) C reactive protein 0.22 <0.80 mg/dL [facility] Comment: {C-REACTIVE PROTEIN {[id number]) Please be advised that patients taking Carboxypenicillins may exhibit falsely decreased C-Reactive Protein levels due to an analytical interference in this assay. 07/29/2014 11:1 9 AM EDT 07/29/2014 4:29 PM EDT Narrative Resulting Agency Comment [id number] us Abel Fierro MD LABORATORY Final Result [facility] [address] [place] [address] * ERYTHROCYTE SEDIMENTATION RATE (ESR), KUNAL (07/29/2014 11:19 AM EDT) Sedimentation Rate [place] (ESR) 14 < OR = 30 mm/h [facility] Comment:{SED RATE BY MODIFIE D SHAJIREN {[id number]) 07/29/2014 11:1 9 AM EDT 07/29/2014 4:29 PM EDT Narrative Resulting Agency Comment [id number] us Abel Fierro MD LAB SAME DAY RESULT Final Resul t Performing Organization Address [facility] Co de Phone Number [facility] [address] [place] [address] * CREATININE WITH GLOMERULAR FILTRATION RATE, ESTIMATED (EGFR) (07/29/2014 11:19 AM EDT) Creatinine 0.93 0.50 - 1.05 mg/dL [facility] Comment: {CREATININE {[id number]) For patients >49 years of age, the reference limit for Creatinine is approximately 13% higher for people identified as -Jordanian. GFR 67 > OR = 60 mL/min/1. 73m2 [facility] Comment:{eGFR NON-AFR. AMERI CAN {[id number]) GFR () 78 > OR = 60 mL/min/1. 73m2 [facility] Comment:{eGFR AMERIC AN {[id number]) 07/29/2014 11:1 9 AM EDT 07/29/2014 4:29 [...] needs for GFR calculation. Resulting Agency Comment [id number] us Abel Fierro MD LAB SAME DAY RESULT Final Resul t Performing Organization Address City/[facility]/ZIP Co de Phone Number [facility] [address] [place] [address] * ALANINE AMINOTRANSFERASE (ALT), SERUM (07/29/2014 11:19 AM EDT) ALT (SGPT) 19 6 - 29 U/L [facility] Comment:{ALT {[id number]) 07/29/2014 11:1 9 AM EDT 07/29/2014 4:29 PM EDT Narrative Resulting Agency Comment [id number] us Abel Fierro MD LAB SAME DAY RESULT Final Resul t Performing Organization Address City/[facility] Co de Phone Number [facility] [address] [place] [address] * ASPARTATE AMINOTRANSFERASE (AST), SERUM (07/29/2014 11:19 AM EDT) AST (SGOT) 17 10 - 35 U/L [facility] Comment:{AST {[id number]) 07/29/2014 11:1 9 AM EDT 07/29/2014 4:29 PM EDT Narrative Resulting Agency Comment [id number] us Abel Fierro MD LAB SAME DAY RESULT Final Resul t Performing Organization Address [facility] de Phone Number [facility] [address] [place] [address] * (ABNORMAL) CBC INCLUDES DIFFERENTIAL AND PLATELET COUNT (07/29/2014 11:19 AM EDT) WBC 10.9(H) 3.8 - 10.8 Thousand/ uL [facility] Comment:{WHITE BLOOD CELL CO UNT {[id number]) RBC 5.63(H) 3.80 - 5.10 Million/u L [facility] Comment:{RED BLOOD CELL COUN T {[id number]) Hemoglobin 14.8 11.7 - 15.5 g/dL [facility] Comment:{HEMOGLOBIN {[id number]) Hematocrit 45.7(H) 35.0 - 45.0 % [facility] Comment:{HEMATOCRIT {[id number]) MCV 81.1 80.0 - 100.0 fL [facility] Comment:{MCV {[id number]) MCH 26.2(L) 27.0 - 33.0 pg [facility] Comment:{MCH {[id number]) MCHC 32.3 32.0 - 36.0 g/dL [facility] Comment:{MCHC {[id number]) RDW 15.5(H) 11.0 - 15.0 % [facility] Comment:{RDW {[id number]) PLT 331 140 - 400 Thousand/ uL [facility] Comment:{PLATELET COUNT {[id number]) MPV 7.3(L) 7.5 - 11.5 fL [facility] Comment:{MPV {[id number]) Neutrophils # 5875 1500 - 7800 cells/uL [facility] Comment:{ABSOLUTE NEUTROPHIL S {[id number]) Lymphocytes # 3706 850 - 3900 cells/uL [facility] Comment:{ABSOLUTE LYMPHOCYTE S {[id number]) Monocytes # 981(H) 200 - 950 cells/uL [facility] Comment:{ABSOLUTE MONOCYTES {[id number]) Eosinophils # 294 15 - 500 cells/uL [facility] Comment:{ABSOLUTE EOSINOPHIL S {[id number]) Basophils # 44 0 - 200 cells/uL [facility] Comment:{ABSOLUTE BASOPHILS {[id number]) Neutrophils % 53.9 % [facility] Comment:{NEUTROPHILS {[id number]) Lymphocytes % 34.0 % [facility] Comment:{LYMPHOCYTES {[id number]) Monocytes % 9.0 % [facility] Comment:{MONOCYTES {[id number]) Eosinophils % 2.7 % [facility] Comment:{EOSINOPHILS {[id number]) Basophils % 0.4 % [facility] Comment:{BASOPHILS {[id number]) 07/29/2014 11:1 9 AM EDT 07/29/2014 4:29 PM EDT Narrative Resulting Agency Comment [id number] us Abel Fierro MD LAB SAME DAY RESULT Final Resul t [facility] [address] [place] [address] documented in this encounter Visit Diagnoses Diagnosis Rheumatoid arthritis(714.0) Rheumatoid arthritis documented in this encounter Care Teams Kraft Mill Operator Relationship Specialty Start Date End Date Charly Saxena [facility]0 [place], [place] [id number] PCP - General Internal Medicine 05/25/13 07/16/17 Cheryl Calderon MD [address] [address] PCP - General Internal Medicine 07/17/17 documented as of this encounter
--- OUTSIDE RECORDS SUMMARY | 2024-07-31 10:53 | XMS_ITS | Encounter Summary ---
Author Organization [facility] Address [address] [place] [address] Care Team Providers Care Examining Officer Name Role Phone Charly Saxena Primary Care Provider [phone] Cheryl Calderon MD Primary Care Provider [phone] Encounter Details Date Type Department Care Team (Late st Contact Info) Description 02/10/2015 Orders Only [facility] Rheumatology [address] [place] [address] Abel Fierro MD [address] [place] [address] Social History Tobacco Use Types Packs/Day Years [...] EDT) C reactive protein 0.45 <0.80 mg/dL [facility] Comment: {C-REACTIVE PROTEIN {[id number]) Please be advised that patients taking Carboxypenicillins may exhibit falsely decreased C-Reactive Protein levels due to an analytical interference in this assay. 02/10/2015 12:2 9 PM EDT 02/10/2015 9:25 PM EDT Narrative Resulting Agency Comment [id number] us Abel Fierro MD LABORATORY Final Result Performing Organization Address [facility] Co de Phone Number [facility] [address] [place] [address] * ERYTHROCYTE SEDIMENTATION RATE (ESR), WESTERGREN (02/10/2015 12:29 PM EDT) Sedimentation Rate [place] (ESR) 6 < OR = 30 mm/h [facility] Comment:{SED RATE BY MODIFIE D WESTERGREN {[id number]) 02/10/2015 12:2 9 PM EDT 02/10/2015 9:25 PM EDT Narrative Resulting Agency Comment [id number] us Abel Fierro MD LAB SAME DAY RESULT Final Resul t Performing Organization Address [facility] de Phone Number [facility] [address] [place] [address] * CREATININE WITH GLOMERULAR FILTRATION RATE, ESTIMATED (EGFR) (02/10/2015 12:29 PM EDT) Creatinine 0.80 0.50 - 0.99 mg/dL [facility] Comment: {CREATININE {[id number]) For patients >49 years of age, the reference limit for Creatinine is approximately 13% higher for people identified as -Lao. GFR 80 > OR = 60 mL/min/1. 73m2 [facility] Comment:{eGFR NON-AFR. AMERI CAN {[id number]) GFR () 93 > OR = 60 mL/min/1. 73m2 [facility] Comment:{eGFR AMERIC AN {[id number]) 02/10/2015 12:2 9 PM EDT 02/10/2015 9:25 [...] needs for GFR calculation. Resulting Agency Comment [id number] Abel Fierro MD LAB SAME DAY RESULT Final Resul t Performing Organization Address [facility] de Phone Number [facility] [address] [place] [address] * (ABNORMAL) ALANINE AMINOTRANSFERASE (ALT), SERUM (02/10/2015 12:29 PM EDT) ALT (SGPT) 37(H) 6 - 29 U/L [facility] Comment:{ALT {[id number]) 02/10/2015 12:2 9 PM EDT 02/10/2015 9:25 PM EDT Narrative Resulting Agency Comment [id number] Abel Fierro MD LAB SAME DAY RESULT Final Resul t Performing Organization Address [facility] de Phone Number [facility] [address] [place] [address] * ASPARTATE AMINOTRANSFERASE (AST), SERUM (02/10/2015 12:29 PM EDT) AST (SGOT) 26 10 - 35 U/L [facility] Comment:{AST {[id number]) 02/10/2015 12:2 9 PM EDT 02/10/2015 9:25 PM EDT Narrative Resulting Agency Comment [id number] Abel Fierro MD LAB SAME DAY RESULT Final Resul t Performing Organization Address [facility] de Phone Number [facility] [address] [place] [address] * (ABNORMAL) CBC INCLUDES DIFFERENTIAL AND PLATELET COUNT (02/10/2015 12:29 PM EDT) WBC 10.5 3.8 - 10.8 Thousand/ uL [facility] Comment:{WHITE BLOOD CELL CO UNT {[id number]) RBC 6.07(H) 3.80 - 5.10 Million/u L [facility] Comment:{RED BLOOD CELL COUN T {[id number]) Hemoglobin 15.7(H) 11.7 - 15.5 g/dL [facility] Comment:{HEMOGLOBIN {[id number]) Hematocrit 48.6(H) 35.0 - 45.0 % [facility] Comment:{HEMATOCRIT {[id number]) MCV 80.1 80.0 - 100.0 fL [facility] Comment:{MCV {[id number]) MCH 25.8(L) 27.0 - 33.0 pg [facility] Comment:{MCH {[id number]) MCHC 32.2 32.0 - 36.0 g/dL [facility] Comment:{MCHC {[id number]) RDW 15.6(H) 11.0 - 15.0 % [facility] Comment:{RDW {[id number]) PLT 347 140 - 400 Thousand/ uL [facility] Comment:{PLATELET COUNT {[id number]) MPV 7.6 7.5 - 11.5 fL [facility] Comment:{MPV {[id number]) Neutrophils # 7455 1500 - 7800 cells/uL [facility] Comment:{ABSOLUTE NEUTROPHIL S {[id number]) Lymphocytes # 1932 850 - 3900 cells/uL [facility] Comment:{ABSOLUTE LYMPHOCYTE S {[id number]) Monocytes # 861 200 - 950 cells/uL [facility] Comment:{ABSOLUTE MONOCYTES {[id number]) Eosinophils # 221 15 - 500 cells/uL [facility] Comment:{ABSOLUTE EOSINOPHIL S {[id number]) Basophils # 32 0 - 200 cells/uL [facility] Comment:{ABSOLUTE BASOPHILS {[id number]) Neutrophils % 71.0 % [facility] Comment:{NEUTROPHILS {[id number]) Lymphocytes % 18.4 % [facility] Comment:{LYMPHOCYTES {[id number]) Monocytes % 8.2 % [facility] Comment:{MONOCYTES {[id number]) Eosinophils % 2.1 % [facility] Comment:{EOSINOPHILS {[id number]) Basophils % 0.3 % [facility] Comment:{BASOPHILS {[id number]) 02/10/2015 12:2 9 PM EDT 02/10/2015 9:25 PM EDT Narrative Resulting Agency Comment [id number] us Abel Fierro MD LAB SAME DAY RESULT Final Resul t [facility] [address] [place] [address] documented in this encounter Visit Diagnoses Diagnosis Rheumatoid arthritis involving both feet, unspecified rheumatoid factor presence (HCC) [M06.071, M06.072] documented in this encounter Care Teams Examining Officer Relationship Specialty Start Date End Date Charly Saxena [facility] [address] [place] [address] PCP - General Internal Medicine 05/25/13 07/16/17 Cheryl Calderon MD [facility] Medicine [address] [place] [address] PCP - General Internal Medicine 07/17/17 documented as of this encounter
--- OUTSIDE RECORDS SUMMARY | 2024-07-31 10:53 | XMS_ITS | Encounter Summary ---
Author Organization [facility] Address [address] [place] [address] Care Team Providers Care Flight Information Expediter Name Role Phone Charly Saxena Primary Care Provider [phone] Cheryl Calderon MD Primary Care Provider [phone] Encounter Details Date Type Department Care Team (Late st Contact Info) Description 07/06/2015 Orders Only [facility] Rheumatology [address] [place] [address] Abel Fierro MD [address] [place] [address] Social History Tobacco Use Types Packs/Day Years [...] - 0.99 mg/dL [facility] Comment: {CREATININE {[id number]) For patients >49 years of age, the reference limit for Creatinine is approximately 13% higher for people identified as -South Sudanese. GFR 69 > OR = 60 mL/min/1. 73m2 [facility] Comment:{eGFR NON-AFR. AMERI CAN {[id number]) GFR () 81 > OR = 60 mL/min/1. 73m2 [facility] Comment:{eGFR AMERIC AN {[id number]) 07/06/2015 1:10 PM EST 07/07/2015 12:26 AM [...] needs for GFR calculation. Resulting Agency Comment [id number] us Abel Fierro MD LAB SAME DAY RESULT Final Resul t Performing Organization Address [facility] Co de Phone Number [facility] [address] [place] [address] * (ABNORMAL) ALANINE AMINOTRANSFERASE (ALT), SERUM (07/06/2015 1:10 PM EST) ALT (SGPT) 35(H) 6 - 29 U/L [facility] Comment:{ALT {[id number]) 07/06/2015 1:10 PM EST 07/07/2015 12:26 AM EST Narrative Resulting Agency Comment [id number] Abel Fierro MD LAB SAME DAY RESULT Final Resul t Performing Organization Address [facility] de Phone Number [facility] [address] [place] [address] * ASPARTATE AMINOTRANSFERASE (AST), SERUM (07/06/2015 1:10 PM EST) AST (SGOT) 24 10 - 35 U/L [facility] Comment:{AST {[id number]) 07/06/2015 1:10 PM EST 07/07/2015 12:26 AM EST Narrative Resulting Agency Comment [id number] Abel Fierro MD LAB SAME DAY RESULT Final Resul t Performing Organization Address [facility] de Phone Number [facility] [address] [place] [address] * (ABNORMAL) CBC INCLUDES DIFFERENTIAL AND PLATELET COUNT (07/06/2015 1:10 PM EST) WBC 9.5 3.8 - 10.8 Thousand/ uL [facility] Comment:{WHITE BLOOD CELL CO UNT {[id number]) RBC 5.89(H) 3.80 - 5.10 Million/u L [facility] Comment:{RED BLOOD CELL COUN T {[id number]) Hemoglobin 15.7(H) 11.7 - 15.5 g/dL [facility] Comment:{HEMOGLOBIN {[id number]) Hematocrit 48.6(H) 35.0 - 45.0 % [facility] Comment:{HEMATOCRIT {[id number]) MCV 82.5 80.0 - 100.0 fL [facility] Comment:{MCV {[id number]) MCH 26.7(L) 27.0 - 33.0 pg [facility] Comment:{MCH {[id number]) MCHC 32.3 32.0 - 36.0 g/dL [facility] Comment:{MCHC {[id number]) RDW 15.9(H) 11.0 - 15.0 % [facility] Comment:{RDW {[id number]) PLT 356 140 - 400 Thousand/ uL [facility] Comment:{PLATELET COUNT {[id number]) MPV 7.5 7.5 - 11.5 fL [facility] Comment:{MPV {[id number]) Neutrophils # 7999(H) 1500 - 7800 cells/uL [facility] Comment:{ABSOLUTE NEUTROPHIL S {[id number]) Lymphocytes # 979 850 - 3900 cells/uL [facility] Comment:{ABSOLUTE LYMPHOCYTE S {[id number]) Monocytes # 428 200 - 950 cells/uL [facility] Comment:{ABSOLUTE MONOCYTES {[id number]) Eosinophils # 48 15 - 500 cells/uL [facility] Comment:{ABSOLUTE EOSINOPHIL S {[id number]) Basophils # 48 0 - 200 cells/uL [facility] Comment:{ABSOLUTE BASOPHILS {[id number]) Neutrophils % 84.2 % [facility] Comment:{NEUTROPHILS {[id number]) Lymphocytes % 10.3 % [facility] Comment:{LYMPHOCYTES {[id number]) Monocytes % 4.5 % [facility] Comment:{MONOCYTES {[id number]) Eosinophils % 0.5 % [facility] Comment:{EOSINOPHILS {[id number]) Basophils % 0.5 % [facility] Comment:{BASOPHILS {[id number]) 07/06/2015 1:10 PM EST 07/07/2015 12:26 AM EST Narrative Resulting Agency Comment [id number] us Abel Fierro MD LAB SAME DAY RESULT Final Resul t [facility] [address] [place] [address] documented in this encounter Visit Diagnoses Diagnosis Rheumatoid arthritis involving both feet, unspecified rheumatoid factor presence (HCC) [M06.071, M06.072] documented in this encounter Care Teams Flight Information Expediter Relationship Specialty Start Date End Date Charly Saxena [facility] [address] [place] [address] PCP - General Internal Medicine 05/25/13 07/16/17 Cheryl Calderon MD [facility] Medicine [address] [place] [address] PCP - General Internal Medicine 07/17/17 documented as of this encounter
--- OUTSIDE RECORDS SUMMARY | 2024-07-31 10:53 | XMS_ITS | Encounter Summary ---
Author Organization [facility] Address [address] [place] [address] Care Team Providers Care Bunch Breaker Machine Operator Name Role Phone Charly Saxena Primary Care Provider [phone] Cheryl Calderon MD Primary Care Provider [phone] Encounter Details Date Type Department Care Team (Late st Contact Info) Description 05/25/2013 Orders Only [facility] Rheumatology [address] [place] [address] Abel Fierro MD [address] [place] [address] Social History Tobacco Use Types Packs/Day Years [...] of this encounter Procedures * Due to [place] state law, this organization might not be [...] in this encounter Results * Due to [place] state law, this organization might not be sharing negative HIV tests. * CREATININE WITH GLOMERULAR FILTRATION RATE, ESTIMATED (EGFR) (05/25/2013 2:20 PM EST) Creatinine 0.90 0.50 - 1.05 mg/dL [facility] Comment: {CREATININE {[id number]) For patients >49 years of age, the reference limit for Creatinine is approximately 13% higher for people identified as -Kenyan. GFR 70 > OR = 60 mL/min/1. 73m2 [facility] Comment:{eGFR NON-AFR. AMERI CAN {[id number]) GFR () 82 > OR = 60 mL/min/1. 73m2 [facility] Comment:{eGFR AMERIC AN {[id number]) 05/25/2013 2:20 PM EST 05/25/2013 6:51 PM [...] needs for GFR calculation. Resulting Agency Comment [id number] us Abel Fierro MD LAB SAME DAY RESULT Final Resul t [facility] [address] [place] [address] * (ABNORMAL) CBC INCLUDES DIFFERENTIAL AND PLATELET COUNT (05/25/2013 2:20 PM EST) WBC 14.5(H) 3.8 - 10.8 Thousand/ uL [facility] Comment:{WHITE BLOOD CELL CO UNT {[id number]) RBC 5.63(H) 3.80 - 5.10 Million/u L [facility] Comment:{RED BLOOD CELL COUN T {[id number]) Hemoglobin 14.6 11.7 - 15.5 g/dL [facility] Comment:{HEMOGLOBIN {[id number]) Hematocrit 46.7(H) 35.0 - 45.0 % [facility] Comment:{HEMATOCRIT {[id number]) MCV 82.8 80.0 - 100.0 fL [facility] Comment:{MCV {[id number]) MCH 26.0(L) 27.0 - 33.0 pg [facility] Comment:{MCH {[id number]) MCHC 31.4(L) 32.0 - 36.0 g/dL [facility] Comment:{MCHC {[id number]) RDW 15.0 11.0 - 15.0 % [facility] Comment:{RDW {[id number]) PLT 395 140 - 400 Thousand/ uL [facility] Comment:{PLATELET COUNT {[id number]) MPV 7.4(L) 7.5 - 11.5 fL [facility] Comment:{MPV {[id number]) Neutrophils # 63872(H) 1500 - 7800 cells/uL [facility] Comment:{ABSOLUTE NEUTROPHIL S {[id number]) Lymphocytes # 1291 850 - 3900 cells/uL [facility] Comment:{ABSOLUTE LYMPHOCYTE S {[id number]) Monocytes # 595 200 - 950 cells/uL [facility] Comment:{ABSOLUTE MONOCYTES {[id number]) Eosinophils # 102 15 - 500 cells/uL [facility] Comment:{ABSOLUTE EOSINOPHIL S {[id number]) Basophils # 29 0 - 200 cells/uL [facility] Comment:{ABSOLUTE BASOPHILS {[id number]) Neutrophils % 86.1 % [facility] Comment:{NEUTROPHILS {[id number]) Lymphocytes % 8.9 % [facility] Comment:{LYMPHOCYTES {[id number]) Monocytes % 4.1 % [facility] Comment:{MONOCYTES {[id number]) Eosinophils % 0.7 % [facility] Comment:{EOSINOPHILS {[id number]) Basophils % 0.2 % [facility] Comment:{BASOPHILS {[id number]) 05/25/2013 2:20 PM EST 05/25/2013 6:51 PM EST Narrative Resulting Agency Comment [id number] us Abel Fierro MD LAB SAME DAY RESULT Final Resul t Performing Organization Address City/[facility] [[email or web address]] Co de Phone Number [facility] [address] [place] [address] * ALANINE AMINOTRANSFERASE (ALT), SERUM (05/25/2013 2:20 PM EST) ALT (SGPT) 21 6 - 29 U/L [facility] Comment:{ALT {[id number]) 05/25/2013 2:20 PM EST 05/25/2013 6:51 PM EST Narrative Resulting Agency Comment [id number] us Abel Fierro MD LAB SAME DAY RESULT Final Resul t Performing Organization Address [facility] de Phone Number [facility] [address] [place] [address] * ASPARTATE AMINOTRANSFERASE (AST), SERUM (05/25/2013 2:20 PM EST) AST (SGOT) 21 10 - 35 U/L [facility] Comment:{AST {[id number]) 05/25/2013 2:20 PM EST 05/25/2013 6:51 PM EST Narrative Resulting Agency Comment [id number] Abel Fierro MD LAB SAME DAY RESULT Final Resul t Performing Organization Address [facility] de Phone Number [facility] [address] [place] [address] documented in this encounter Visit Diagnoses Diagnosis Rheumatoid arthritis(714.0) Rheumatoid arthritis documented in this encounter Care Teams Bunch Breaker Machine Operator Relationship Specialty Start Date End Date Charly Saxena [facility] [address] [place] [address] PCP - General Internal Medicine 05/25/13 07/16/17 Cheryl Calderon MD [facility] Medicine [address] [place] [address] PCP - General Internal Medicine 07/17/17 documented as of this encounter
--- OUTSIDE RECORDS SUMMARY | 2024-07-31 10:53 | XMS_ITS | Encounter Summary ---
Author Organization [facility] Address [address] [place] [address] Care Team Providers Care Estimating Manager Name Role Phone Alberto Pacheco Primary Care Provider [phone] Charly Saxena Primary Care Provider [phone] Cheryl Calderon MD Primary Care Provider [phone] Encounter Details Date Type Department Care Team (Late st Contact Info) Description 01/23/2013 Orders Only [facility] Rheumatology [address] [place] [address] Abel Fierro MD [address] [place] [address] Social History Tobacco Use Types Packs/Day Years [...] DIAGNOSTICS Comment:{SED RATE BY MODIFIE D KUNAL {[id number]) 01/23/2013 4:26 PM EDT 01/23/2013 11:06 PM EDT Narrative Resulting Agency Comment [id number] us Abel Fierro MD LAB SAME DAY RESULT Final Resul t Performing Organization Address City/State/[facility] Co de Phone Number [facility] [address] [place] [address] * C-REACTIVE PROTEIN (CRP) - INFLAMMATION (01/23/2013 4:26 PM EDT) C reactive protein 0.49 <0.80 mg/dL [facility] Comment: {C-REACTIVE PROTEIN {[id number]) Please be advised that patients taking Carboxypenicillins may exhibit falsely decreased C-Reactive Protein levels due to an analytical interference in this assay. 01/23/2013 4:26 PM EDT 01/23/2013 11:06 PM EDT Narrative Resulting Agency Comment [id number] us Abel Fierro MD LABORATORY Final Result Performing Organization Address [facility] Co de Phone Number [facility] [address] [place] [address] * CREATININE WITH GLOMERULAR FILTRATION RATE, ESTIMATED (EGFR) (01/23/2013 4:26 PM EDT) Creatinine 0.81 0.50 - 1.05 mg/dL [facility] Comment: {CREATININE {[id number]) For patients >49 years of age, the reference limit for Creatinine is approximately 13% higher for people identified as -Andorran. GFR 80 > OR = 60 mL/min/1. 73m2 [facility] Comment:{eGFR NON-AFR. AMERI CAN {[id number]) GFR () 93 > OR = 60 mL/min/1. 73m2 [facility] Comment:{eGFR AMERIC AN {[id number]) 01/23/2013 4:26 PM EDT 01/23/2013 11:06 PM [...] needs for GFR calculation. Resulting Agency Comment [id number] us Abel Fierro MD LAB SAME DAY RESULT Final Resul t Performing Organization Address [facility] Co de Phone Number [facility] [address] [place] [address] * (ABNORMAL) CBC INCLUDES DIFFERENTIAL AND PLATELET COUNT (01/23/2013 4:26 PM EDT) WBC 7.3 3.8 - 10.8 Thousand/ uL [facility] Comment:{WHITE BLOOD CELL CO UNT {[id number]) RBC 5.80(H) 3.80 - 5.10 Million/u L [facility] Comment:{RED BLOOD CELL COUN T {[id number]) Hemoglobin 15.0 11.7 - 15.5 g/dL [facility] Comment:{HEMOGLOBIN {[id number]) Hematocrit 47.0(H) 35.0 - 45.0 % [facility] Comment:{HEMATOCRIT {[id number]) MCV 81.1 80.0 - 100.0 fL [facility] Comment:{MCV {[id number]) MCH 25.9(L) 27.0 - 33.0 pg [facility] Comment:{MCH {[id number]) MCHC 31.9(L) 32.0 - 36.0 g/dL [facility] Comment:{MCHC {[id number]) RDW 16.0(H) 11.0 - 15.0 % [facility] Comment:{RDW {[id number]) PLT 327 140 - 400 Thousand/ uL [facility] Comment:{PLATELET COUNT {[id number]) MPV 7.8 7.5 - 11.5 fL [facility] Comment:{MPV {[id number]) Neutrophils # 3548 1500 - 7800 cells/uL [facility] Comment:{ABSOLUTE NEUTROPHIL S {[id number]) Lymphocytes # 2745 850 - 3900 cells/uL [facility] Comment:{ABSOLUTE LYMPHOCYTE S {[id number]) Monocytes # 767 200 - 950 cells/uL [facility] Comment:{ABSOLUTE MONOCYTES {[id number]) Eosinophils # 190 15 - 500 cells/uL [facility] Comment:{ABSOLUTE EOSINOPHIL S {[id number]) Basophils # 51 0 - 200 cells/uL [facility] Comment:{ABSOLUTE BASOPHILS {[id number]) Neutrophils % 48.6 % [facility] Comment:{NEUTROPHILS {[id number]) Lymphocytes % 37.6 % [facility] Comment:{LYMPHOCYTES {[id number]) Monocytes % 10.5 % [facility] Comment:{MONOCYTES {[id number]) Eosinophils % 2.6 % [facility] Comment:{EOSINOPHILS {[id number]) Basophils % 0.7 % [facility] Comment:{BASOPHILS {[id number]) 01/23/2013 4:26 PM EDT 01/23/2013 11:06 PM EDT Narrative Resulting Agency Comment [id number] us Abel Fierro MD LAB SAME DAY RESULT Final Resul t Performing Organization Address [facility] de Phone Number [facility] [address] [place] [address] * ASPARTATE AMINOTRANSFERASE (AST), SERUM (01/23/2013 4:26 PM EDT) AST (SGOT) 22 10 - 35 U/L [facility] Comment:{AST {[id number]) 01/23/2013 4:26 PM EDT 01/23/2013 11:06 PM EDT Narrative Resulting Agency Comment [id number] us Abel Fierro MD LAB SAME DAY RESULT Final Resul t Performing Organization Address [facility] de Phone Number [facility] [address] [place] [address] * ALANINE AMINOTRANSFERASE (ALT), SERUM (01/23/2013 4:26 PM EDT) ALT (SGPT) 21 6 - 29 U/L [facility] Comment:{ALT {[id number]) 01/23/2013 4:26 PM EDT 01/23/2013 11:06 PM EDT Narrative Resulting Agency Comment [id number] Abel Fierro MD LAB SAME DAY RESULT Final Resul t Performing Organization Address [facility] de Phone Number [facility] [address] [place] [address] documented in this encounter Visit Diagnoses Diagnosis Rheumatoid arthritis(714.0) Rheumatoid arthritis documented in this encounter Care Teams Estimating Manager Relationship Specialty Start Date End Date Alberto Pacheco [address] [place] [address] PCP - General 07/19/08 05/24/13 Charly Saxena [facility] [address] [place] [address] PCP - General Internal Medicine 05/25/13 07/16/17 Cheryl Calderon MD [facility] Medicine [address] [place] [address] PCP - General Internal Medicine 07/17/17 documented as of this encounter
--- OUTSIDE RECORDS SUMMARY | 2024-07-31 10:53 | XMS_ITS | Encounter Summary ---
Author Organization [facility] Address [address] [place] [address] Care Team Providers Care Tip Bander Name Role Phone Alberto Pacheco Primary Care Provider [phone] Unknown Pcp, Non [facility] Primary Care Provider Unava ilCharly Antoine Primary Care Provider [phone] Charly Saxena Primary Care Provider [phone] Cheryl Calderon MD Primary Care Provider [phone] Encounter Details Date Type Department Care Team (Late st Contact Info) Description 03/14/2006 Orders Only [facility] Rheumatology [address] [place] [address] Nikkie Moss, LOCKST[employer]ONT [employer]KER [address] [place], [place] [address] Social History Tobacco Use Types Packs/Day Years [...] on filedocumented in this encounter Care Teams Tip Bander Relationship Specialty Start Date End Date Alberto Pacheco [address] [place] [address] PCP - General 07/19/08 05/24/13 Unknown Pcp, Non [facility] PCP - General 06/30/08 07/18/08 Charly Saxena [facility] [address] [place] [address] PCP - General 01/18/06 06/29/08 Charly Saxena [facility] [address] [place] [address] PCP - General Internal Medicine 05/25/13 07/16/17 Cheryl Calderon MD [facility] Medicine [address] [place] [address] PCP - General Internal Medicine 07/17/17 documented as of this encounter
--- OUTSIDE RECORDS SUMMARY | 2024-07-31 10:53 | XMS_ITS | Encounter Summary ---
Author Organization [facility] Address [address] [place] [address] Care Team Providers Care Steward Dishwasher Name Role Phone Charly Saxena Primary Care Provider [phone] Cheryl Calderon MD Primary Care Provider [phone] Encounter Details Date Type Department Care Team (Late st Contact Info) Description 10/15/2013 Orders Only [facility] Rheumatology [address] [place] [address] Abel Fierro MD 5 [place] [address] Social History Tobacco Use Types Packs/Day Years [...] arthritis documented in this encounter Care Teams Steward Dishwasher Relationship Specialty Start Date End Date Charly Saxena [facility] [address] [place] [address] PCP - General Internal Medicine 05/25/13 07/16/[address] [facility] Adult Medicine [address] [place] [address] PCP - General Internal Medicine 07/17/17 documented as of this encounter
--- OUTSIDE RECORDS SUMMARY | 2024-07-31 10:53 | XMS_ITS | Encounter Summary ---
Author Organization [facility] Address [address] [place] [address] Care Team Providers Care Field Support Technician Name Role Phone Charly Saxena Primary Care Provider [phone] Cheryl Calderon MD Primary Care Provider Reason for Visit * Reason Comments F/u From OV Post injection f/u Encounter Details Date Type Department Care Team (Late st Contact Info) Description 10/24/2015 Telephone [facility] Rheumatology [address] [place] [address] Abel Fierro MD 5 [place] [address] F/u From OV (Post injection f/u ) [...] on filedocumented in this encounter Care Teams Field Support Technician Relationship Specialty Start Date End Date Charly Saxena [facility] [address] [place] [address] PCP - General Internal Medicine 05/25/13 07/16/17 Cheryl Calderon MD [facility] Medicine [address] [place] [address] PCP - General Internal Medicine 07/17/17 documented as of this encounter
--- OUTSIDE RECORDS SUMMARY | 2024-07-31 10:54 | XMS_ITS | Encounter Summary ---
Author Organization [facility] Address [address] [place] [address] Phone Care Team Providers Care Film Reproducer Name Role Phone JessicaMattie oliveirasheryl Mccrackengh [facility] Primary Care Provider Cash Fernandes MD Unavailable [phone] Seven Menchaca MD Unavailable Chavo Jack MD Primary Care Provider Keren Poon [facility] Primary Care Provid er Chavo Jack MD Unavailable Willi Wells MD Unavailable Jose Thakur MD Unavailable Dana Rucker BOTTLE GAUGER Unavailable [phone] Jonathan Alvarez MD Unavailable [phone] Anival Borja MD Unavailable [phone] Lyndsay Reynoso BOTTLE GAUGER Unavailable Gutierrez Pittman MD Unavailable + [phone] Encounter Details Date Type Department Care Team (Late st Contact Info) Description 02/10/2021 Procedure Pass [facility], Ct Scan - [facility] [address] [place] [address] Social History Tobacco Use Types Packs/Day Years [...] high school, GED, job training, learning the Malawian language, technical skills, or developing parenting skills)? [...] Contact Info) Description 06/06/2024 Procedure Pass [facility], [address] [address] 08/04/2024 2:30 AM EDT Home Care Visit [facility] [address] [place] [phone] Orlando Mckeon RN [address] [place] [address] 08/11/2024 2:00 AM EDT [facility] [address] [place] [phone] Orlando Mckeon RN [address] [place] [address] 08/18/2024 1:30 AM EDT [facility] [address] [place] [phone] Orlando Mckeon RN [address] [place] [address] 08/25/2024 1:00 AM EDT Home Care Visit [facility] [address] [place] [phone] Orlando Mckeon, RENZO [address] [place] [address] 09/01/2024 12:30 AM EDT Appointment [facility] [address] [place] [phone] Orlando Mckeon, RENZO [address] [place] [address] 09/18/2024 2:30 PM EDT Office Visit [facility] Infectious Diseases 22 [place] [address] Dana Rucker, BOTTLE GAUGER [address] [address] 11/26/2024 3:30 PM EDT Office Visit [address] [place], [place] [address] Keren Poon, ORI [address] [place] [address] 12/11/2024 2:00 PM EDT Appointment [address] [address] Keren Poon, ORI [address] [place] [address] 01/07/2025 2:30 PM EDT Office Visit [facility] Pulmonary, Allergy and Critical Care Medicine [address] [place] [address] Jose Thakur MD 30 [place] [address] 01/29/2025 3:00 PM EDT Office Visit [address] [place] [address] Keren Poon, ORI [address] [place] [address] 06/03/2025 2:00 PM EST Office Visit [address] [place] [address] Keren Poon, ORI [address] [place] [address] documented as of this encounter Visit Diagnoses [...] documented as of this encounter Care Teams Film Reproducer Relationship Specialty Start Date End Date Ita Pineda CNP 40 [place] [address] [email or web address] PCP - General Internal Medicine 08/19/20 09/17/22 Chavo Jack MD 40 [place] [address] [email or web address] PCP - General Internal Medicine 09/18/22 01/30/23 Keren Poon CNP [address] [place] [address], 2nd [place] [address] [email or web address] PCP - General Family Medicine 01/31/23 Cash Fernandes MD 10 [place] [address] [email or web address] Gastroenterology 08/23/20 Seven Menchaca MD [address] [place] [address] [email or web address] Insurance Assigned Provider 08/04/22 08/03/23 Chavo Jack MD 40 [place] [address] [email or web address] Insurance Assigned Provider 08/03/23 05/04/24 Willi Wells MD [address] [place], [place] [address] [address] Rheumatology 02/04/24 Jose Thakur MD [address] [place] [address] [email or web address] Transformation Manager Pulmonary Disease 03/17/24 Dana Rucker FNP 15 [facility], 2nd [place] [address] [email or web address] Nurse Practitioner Infectious Diseases 05/21/24 Jontahan Alvarez MD [facility], [address] [address] [email or web address] Urology 05/14/23 Anival Borja MD [address] [place] [address], [address] [place] [address] [email or web address] Neurologist Neurology 01/04/23 Lyndsay Reynoso FNP [address] [place] [address] [email or web address] Nurse Practitioner Pain Medicine 05/27/22 Gutierrez Pittman MD 40 [place] [address] Director Skills Cardiology 05/27/24 documented as of this encounter Additional Source Comments The information contained in this document represents components of the legal health record. It is not the complete legal health record.[facility]
--- OUTSIDE RECORDS SUMMARY | 2024-07-31 10:54 | XMS_ITS | Encounter Summary ---
Author Organization [facility] Address [address] [place] [address] Phone Care Team Providers Care Security Solutions Architect Name Role Phone Patrick Sanchez MD Unavailable [phone] Cheryl Calderon MD Primary Care Provider Keren Mabry MD Unavailable Louisa Hogan MD Unavailable Charly Saxena DO Unavailable [phone] Abhinav Muhammad MD Unavailable [phone] Cheryl Giraldo HAND COOPER HELPER Unavailable Wilfrido Steel MD Unavailable [phone] Sharon Martin PA-C Unavailable Ita Pineda FITTER'S ASSISTANT Primary Care Provider Cash Fernandes MD Unavailable [phone] Seven Menchaca MD Unavailable Chavo Jack MD Primary Care Provider Keren Poon [facility] Primary Care Provid er Chavo Jack MD Unavailable Willi Wells MD Unavailable Jose Thakur MD Unavailable Dana Rucker [employer] Unavailable Jonathan Alvarez MD Unavailable [phone] Anival Borja MD Unavailable [place] Lyndsay Linda [employer] Unavailable Gutierrez Pittman MD Unavailable Encounter Details Date Type Department Care Team (Late st Contact Info) Description 08/18/2020 Procedure Pass [facility], Wy Scan [address] [address] Social History Tobacco Use Types Packs/Day Years [...] (Late Contact Info) Description 06/06/2024 Procedure Pass [facility], [address] [address] 08/04/2024 2:30 AM EDT Home Care Visit [facility] [address] [place] [phone] Orlando Mckeon RN [address] [place] [address] 08/11/2024 2:00 AM EDT Home Care Visit [facility] [address] [place] [phone] Orlando Mckeon RN [address] [place] [address] 08/18/2024 1:30 AM EDT [facility] Visit [facility] [address] [place] [address] Orlando Mckeon RN [address] [place] [address] 08/25/2024 1:00 AM EDT [facility] [address] [place] [address] Orlando Mckeon RN [address] [place] [address] 09/01/2024 12:30 AM EDT Appointment [facility] [address] [place] [address] Orlando Mckeon RN [address] [place] [address] 09/18/2024 2:30 PM EDT Office Visit [facility] Infectious Diseases 22 [place] [address] Dana Rucker, CARE PROFESSIONALS 15 [facility], [address] [place] [address] 11/26/2024 3:30 PM EDT Office Visit [facility] [address] [place] [address] [place] [address] Keren Poon, FITTER'S ASSISTANT [address] [address] 12/11/2024 2:00 PM EDT Appointment [facility] 30 [place] [address] Keren Poon, ORI 170 [facility], [address] [place] [address] [email or web address] 01/07/2025 2:30 PM EDT Office Visit [facility] Pulmonary, Allergy and Critical Care Medicine [address] [place] [address] Jose Thakur MD [address] [place] [address] 01/29/2025 3:00 PM EDT Office Visit [address] [place] [address] Keren Poon, ORI [address] [address] [email or web address] 06/03/2025 2:00 PM EST Office Visit [address] [place] [address] Keren Poon, ORI [address] [address] [email or web address] documented as of this encounter Visit Diagnoses [...] documented as of this encounter Care Teams Security Solutions Architect Relationship Specialty Start Date End Date Cheryl Calderon MD [address] [place] [address] PCP - General Family Medicine 04/23/18 08/18/20 Ita Pineda CNP 40 [place] [address] PCP - General Internal Medicine 08/19/20 09/17/22 Chavo Jack MD 40 [place] [address] PCP - General Internal Medicine 09/18/22 01/30/23 Keren Poon CNP [address] [place] [address], 2nd [place] [address] PCP - General Family Medicine 01/31/23 Patrick Sanchez MD [address] [place] [address] Department [place] [address] [email or web address] Historical LMR Provider 09/10/14 Keren Mabry MD [address] [place] [address] Historical LMR Provider 07/10/18 [place] [address] [place] [address] [email or web address] Historical LMR Provider 07/10/1807/29 Charly Saxena DO [address] [place] [address] Historical LMR Provider 07/10/18 Abhinav Muhammad MD [address] [place] [address] [email or web address] Historical LMR Provider 07/10/18 08/22/20 Cheryl Giraldo NP 94 [place] [address] Historical LMR Provider 07/10/18 Wilfrido Steel MD 12 [facility]. [address] [place] [address] Historical LMR Provider 07/10/18 Sharon Martin PA-C [address] [place] [address] [email or web address] Historical LMR Provider 07/10/18 08/22/20 Cash Fernandes MD 10 [place] [address] Gastroenterology 08/23/20 Seven Menchaca MD 40 [place] [address] Insurance Assigned Provider 08/04/22 08/03/23 Chavo Jack MD 40 [place] [address] Insurance Assigned Provider 08/03/23 05/04/24 Willi Wells MD [address] Vinayak 304_[place] [address] Rheumatology 02/04/24 Jose Thakur MD [address] [place] [address] [email or web address] Radiology Receptionist Pulmonary Disease 03/17/24 Dana Rucker FNP 15 [facility], 2nd [place] [address] [email or web address] Nurse Practitioner Infectious Diseases 05/21/24 Jonathan Alvarez MD [address] [place] [address], [address] [place] [address] [email or web address] Urology 05/14/23 Anival Borja MD [address] [place] [address], [address] [place] [address] Neurologist Neurology 01/04/23 Lyndsay Reynoso FNP [address] [place] [address] [email or web address] Nurse Practitioner Pain Medicine 05/27/22 Gutierrez Pittman MD [address] [place] [phone] Ballet Master/Mistress Cardiology 05/27/24 documented as of this encounter Additional Source Comments The information contained in this document represents components of the legal health record. It is not the complete legal health record.[facility]
--- OUTSIDE RECORDS SUMMARY | 2024-07-31 10:54 | XMS_ITS | Encounter Summary ---
Author Organization [facility] Address [address] [place] [address] Care Team Providers Care Annealer Name Role Phone Cheryl Calderon MD Primary Care Provider [phone] Reason for Visit * Reason Comments Appointment Encounter Details Date Type Department Care Team ([facility] st Contact Info) Description 01/12/2019 Telephone [facility] Hematology/Oncology 1 [facility] [address] [place] [phone] Ita Anne RN [address] [place] [address] Appointment Social History Tobacco Use Types Packs/Day [...] Phone 01/19/19 3:10 PM Lyndsay Lopez MD [facility]. Ophthalmology [phone] 01/26/19 9:30 AM EAP CHEMO TX HEM ONC [facility] Hematology/Oncology [phone] 01/30/19 2:40 PM Liliana Calderon NP [facility] Hematology/Oncology [phone] Patient's is aware of the appointment. * Telephone Encounter - Liliana Calderon NP - 01/14/2019 5:28 PM EDT To schedule a follow-up visit for this patient within the week of Rituxan infusion. Thanks! * Telephone Encounter - Apple Bridges - 01/12/2019 4:44 PM EDT Liliana is not in the office on 01/26/19, she is in [place]. * Telephone Encounter - Ita Anne - [...] on filedocumented in this encounter Care Teams Annealer Relationship Specialty Start Date End Date Cheryl Calderon MD [facility] [address] [place] [address] PCP - General Internal Medicine 07/17/17 documented as of this encounter
--- OUTSIDE RECORDS SUMMARY | 2024-07-31 10:54 | XMS_ITS | Encounter Summary ---
Author Organization [facility] Address [address] [place] [address] Care Team Providers Care Senior Construction Project Manager Name Role Phone Cheryl Calderon MD Primary Care Provider [phone] Encounter Details Date Type Department Care Team (Late st Contact Info) Description 11/18/2018 Orders Only [facility] Hematology/Oncology 1 [facility] [address] [place] [phone] Liliana Calderon, JULI 5 [place] [address] Social History Tobacco Use Types Packs/Day Years [...] of this encounter Procedures * Due to [place] state law, this organization might not be [...] in this encounter Results * Due to [place] state law, this organization might not be sharing negative HIV tests. * (ABNORMAL) IRON PROFILE (IRON/TIBC), SERUM (11/18/2018 3:38 PM EDT) Iron 38(L) 45 - 160 mcg/dL [facility] Iron binding capacity 239(L) 250 - 450 mcg/dL (calc) [facility] Iron saturation 16 16 - 45 % (calc) [facility] 11/18/2018 3:38 PM EDT 11/19/2018 12:14 AM EDT Narrative Resulting Agency Comment [id number] Liliana Calderon NP LABORATORY Final Result Performing Organization Address [facility] Co de Phone Number [facility] [address] [place] [address] * (ABNORMAL) FERRITIN (11/18/2018 3:38 PM EDT) Ferritin 634(H) 16 - 288 ng/mL [facility] 11/18/2018 3:38 PM EDT 11/19/2018 12:14 AM EDT Narrative Resulting Agency Comment [id number] Liliana Calderon NP LABORATORY Final Result Performing Organization Address [facility] Co de Phone Number [facility] [address] [place] [address] * LACTATE DEHYDROGENASE (LDH), SERUM (11/18/2018 3:38 PM EDT) Lactate dehydrogenase 156 120 - 250 U/L [facility] 11/18/2018 3:38 PM EDT 11/19/2018 12:14 AM EDT Narrative Resulting Agency Comment [id number] Liliana Calderon NP LABORATORY Final Result Performing Organization Address City/[facility]/ZIP Co de Phone Number [facility] [address] [place] [address] * (ABNORMAL) CBC INCLUDES DIFFERENTIAL AND PLATELET [...] 12:14 AM EDT Narrative Resulting Agency Comment [id number] Liliana Calderon MARKETING COORDINATOR LAB SAME DAY RESULT Final Result [facility] [address] [place] [address] documented in this encounter Visit Diagnoses Diagnosis Leukopenia, unspecified type Iron deficiency Iron deficiency anemia, unspecified documented in this encounter Care Teams Senior Construction Project Manager Relationship Specialty Start Date End Date Cheryl Calderon MD [facility] Adult Medicine [address] [place] [address] PCP - General Internal Medicine 07/17/17 documented as of this encounter
--- OUTSIDE RECORDS SUMMARY | 2024-07-31 10:54 | XMS_ITS | Encounter Summary ---
Author Organization [facility] Address [address] [place] [address] Phone Care Team Providers Care Director Of Home Economics Name Role Phone JessicaMattie oliveirasheryl Mccrackengh [facility] Primary Care Provider Cash Fernandes MD Unavailable [phone] Seven Menchaca MD Unavailable [phone] Chavo Jack MD Primary Care Provider Keren Poon [facility] Primary Care Provid er Chavo Jack MD Unavailable Willi Wells MD Unavailable Jose Thakur MD Unavailable Dana Rucker MAINTENANCE ANALYST Unavailable Jonathan Alvarez MD Unavailable [phone] Anival Borja MD Unavailable [phone] Lyndsay Reynoso MAINTENANCE ANALYST Unavailable [phone] Gutierrez Pittman MD Unavailable + [phone] Encounter Details Date Type Department Care Team (Late st Contact Info) Description 04/09/2022 Procedure Pass [facility], Ct Scan - [facility] [address] [place] [address] Social History Tobacco Use Types Packs/Day Years [...] high school, GED, job training, learning the Kinyarwanda language, technical skills, or developing parenting skills)? [...] st Contact Info) Description 06/06/2024 Procedure Pass [facility] 30 [place] [address] 08/04/2024 2:30 AM EDT Home Care Visit [facility] [address] [place] [phone] Orlando Mckeon RN [address] [place] [address] 08/11/2024 2:00 AM EDT Home Care Visit [facility] [address] [place] [phone] Orlando Mckeon RN [address] [place] [address] 08/18/2024 1:30 AM EDT Home Care Visit [facility] [address] [place] [phone] Orlando Mckeon RN [address] [place] [address] 08/25/2024 1:00 AM EDT Home Care Visit [facility] [address] [place] [phone] Orlando Mckeon RN [address] [place] [address] 09/01/2024 12:30 AM EDT Appointment [facility] [address] [place] [phone] Orlando Mckeon RN [address] [place] [address] 09/18/2024 2:30 PM EDT Office Visit [facility] Infectious Diseases 22 [place] [address] Dana Rucker, DIVYA [address] [place] [address] [address] 11/26/2024 3:30 PM EDT Office Visit [address] [place] [address] Keren Poon CNP [address] [place] [address] 12/11/2024 2:00 PM EDT Appointment [address] [address] Keren Poon, ORI [address] [place] [address] 01/07/2025 2:30 PM EDT Office Visit [facility] Pulmonary, Allergy and Critical Care Medicine [address] [place] [address] Jose Thakur MD 30 [place] [address] 01/29/2025 3:00 PM EDT Office Visit [address] [place] [address] Keren Poon, ORI [address] [place] [address] 06/03/2025 2:00 PM EST Office Visit [address] [place] [address] Keren Poon CNP [address] [place] [address] documented as of this encounter Visit Diagnoses [...] as of this encounter Care Teams Director Of Home Economics Relationship Specialty Start Date End Date Ita Pineda CNP [address] [place] [address] [email or web address] PCP - General Internal Medicine 08/19/20 09/17/22 Chavo Jack MD 40 [place] [address] [email or web address] PCP - General Internal Medicine 09/18/22 01/30/23 Keren Poon CNP [address] [place] [address], 2nd [place] [address] PCP - General Family Medicine 01/31/23 Cash Fernandes MD 10 [place] [address] [email or web address] Gastroenterology 08/23/20 Seven Menchaca MD 40 [place] [address] [email or web address] Insurance Assigned Provider 08/04/22 08/03/23 Chavo Jack MD 40 [place] [address] [email or web address] Insurance Assigned Provider 08/03/23 05/04/24 Willi Wells MD 10 [address] [place] [address] Rheumatology 02/04/24 Jose Thakur MD 30 [place] [address] [email or web address] Lcac Radar Operator/Navigator Pulmonary Disease 03/17/24 Dana Rucker FNP 15 [facility], 2nd [place] [address] [email or web address] Nurse Practitioner Infectious Diseases 05/21/24 Jonathan Alvarez MD [address] [place] [address], [address] [place] [address] [email or web address] Urology 05/14/23 Anival Borja MD [address] [place] [address], [address] [place] [address] [email or web address] Neurologist Neurology 01/04/23 Lyndsay Reynoso FNP 10 [facility] [address] [place] [address] [email or web address] Nurse Practitioner Pain Medicine 05/27/22 Gutierrez Pittman MD [address] [place] [phone] Ict Quality Assurance Engineer Cardiology 05/27/24 documented as of this encounter Additional Source Comments The information contained in this document represents components of the legal health record. It is not the complete legal health record.[facility]
--- OUTSIDE RECORDS SUMMARY | 2024-07-31 10:54 | XMS_ITS | Encounter Summary ---
Author Organization [facility] Address [address] [place] [address] Care Team Providers Care Bath House Attendant Name Role Phone Cheryl Calderon MD Primary Care Provider [phone] Encounter Details Date Type Department Care Team (Late st Contact Info) Description 12/23/2018 Orders Only [facility] Hematology/Oncology 1 [facility] [address] [place] [id number] Liliana Calderon, JULI [address] [place] [address] Social History Tobacco Use Types Packs/Day Years [...] a test for HCV RNA (test code 05897) is suggested. For additional information please refer to http://education.WiFi Rail/faq/VDP53n2 (This link is being provided for informational/ educational purposes only.) 12/23/2018 11:3 2 AM EDT 12/23/2018 11:23 PM EDT Narrative Resulting Agency Comment [id number] Liliana Calderon NP LABORATORY Final Result [facility] [address] [place] [address] * HEPATITIS B CORE ANTIBODY, TOTAL, SERUM (12/23/2018 11:32 AM EDT) Hepatitis B virus core Ab NON-REACTI VE NON-REACT MANOLO [facility] 12/23/2018 11:3 2 AM EDT 12/23/2018 11:23 PM EDT Narrative Resulting Agency Comment [id number] Liliana Nehemiasunder BUILDING CUSTODIAN LABORATORY Final Result Performing Organization Address [facility] Co de Phone Number [facility] [address] [place] [address] * HEPATITIS B SURFACE ANTIGEN (12/23/2018 11:32 AM EDT) Hepatitis B virus surface Ag NON-REACTI VE NON-REACT MANOLO [facility] 12/23/2018 11:3 2 AM EDT 12/23/2018 11:23 PM EDT Narrative Resulting Agency Comment [id number] Liliana Nehemiasunder BUILDING CUSTODIAN LABORATORY Final Result Performing Organization Address [facility] de Phone Number [facility] [address] [place] [address] * (ABNORMAL) HEPATIC FUNCTION PANEL (ALT,AST,ALK PH,BILI'S,TP,ALB) (12/23/2018 11:32 AM EDT) Pathologist [facility] Protein Total (Serum) 5.8(L) 6.1 - 8.1 [...] 11:23 PM EDT Narrative Resulting Agency Comment [id number] Liliana Nehemiasunder BUILDING CUSTODIAN LABORATORY Final Result Performing Organization Address [facility] Co de Phone Number [facility] [address] [place] [address] * CBC INCLUDES DIFFERENTIAL AND PLATELET COUNT [...] 11:23 PM EDT Narrative Resulting Agency Comment [id number] Liliana Calderon BUILDING CUSTODIAN LAB SAME DAY RESULT Final Result Performing Organization Address City/State/[facility] Co de Phone Number [facility] [address] [place] [address] documented in this encounter Visit Diagnoses Diagnosis Rheumatoid arthritis involving multiple sites with positive rheumatoid factor (HCC) documented in this encounter Care Teams Bath House Attendant Relationship Specialty Start Date End Date Cheryl Calderon MD [facility] Adult Medicine [address] [place] [address] PCP - General Internal Medicine 07/17/17 documented as of this encounter
--- OUTSIDE RECORDS SUMMARY | 2024-07-31 10:54 | XMS_ITS | Encounter Summary ---
Author Organization [facility] Address [address] [place] [address] Phone Care Team Providers Care Parachute Repairer Name Role Phone Cash Fernandes MD Unavailable [phone] eKren Poon [facility] Primary Care Provid er Chavo Jack MD Unavailable Willi Wells MD Unavailable Jose Thakur MD Unavailable [phone] Dana Rucker HEALTH SERVICES INFORMATION SPECIALIST Unavailable [phone] Jonathan Alvarez MD Unavailable [phone] Anival Borja MD Unavailable Lyndsay Reynoso HEALTH SERVICES INFORMATION SPECIALIST Unavailable [phone] Gutierrez Pittman MD Unavailable [phone] Encounter Details Date Type Department Care Team (Late st Contact Info) Description 05/01/2024 Ancillary Orders Virtual Department [address] [place] [address] Argelia Taylor, JULI [address] [place], [place] [phone] Lower abdominal pain (Primary Dx); Diarrhea, unspecified [...] st Contact Info) Description 06/06/2024 Procedure Pass [address] [address] 08/04/2024 2:30 AM EDT Home Care Visit [facility] [address] [place] [address] Orlando Mckeon RN [address] [place] [address] [email or web address] 08/11/2024 2:00 AM EDT [facility] [address] [place] [address] Orlando Mckeon RN [address] [place] [address] [email or web address] 08/18/2024 1:30 AM EDT [facility] [address] [place] [address] Orlando Mckeon RN [address] [place] [address] 08/25/2024 1:00 AM EDT Home Care Visit [facility] [address] [place], [place] [phone] Orlando Mckeon RN [address] [place] [address] 09/01/2024 12:30 AM EDT Appointment [facility] [address] [place], [place] [phone] Orlando Mckeon RN [address] [place] [address] 09/18/2024 2:30 PM EDT Office Visit [facility] Infectious Diseases [address] [place] [address] Dana Rucker FNP [address] [address] 11/26/2024 3:30 PM EDT Office Visit [facility] [address] [place] [address] [place] [address] Keren Poon, [employer] [address] [address] 12/11/2024 2:00 PM EDT Appointment [facility] [address] [place] [address] Keren Poon, [employer] [address] [address] 01/07/2025 2:30 PM EDT Office Visit [facility] [address] [place] [address] Jose Thakur MD 30 [place] [address] 01/29/2025 3:00 PM EDT Office Visit [address] [place], [place] [address] Keren Poon, [employer] 170 [facility], 2nd [place] [address] [email or web address] 06/03/2025 2:00 PM EST Office Visit [address] [place], [place] [address] Keren Poon, [employer] 170 [facility], 2nd [place] [address] documented as of this encounter Results * [...] documented as of this encounter Care Teams Parachute Repairer Relationship Specialty Start Date End Date Keren Poon CNP [address] [place] [address], [address] [place] [address] [email or web address] PCP - General Family Medicine 01/31/23 Cash Fernandes MD 10 [place] [address] Gastroenterology 08/23/20 Chavo Jack MD 40 [place] [address] [email or web address] Insurance Assigned Provider 08/03/23 05/04/24 Willi Wells MD [address] [address] Rheumatology 02/04/24 Jose Thakur MD 30 [place] [address] Sleeve Baster Pulmonary Disease 03/17/24 Dana Rucker FNP [address] [address] [email or web address] Nurse Practitioner Infectious Diseases 05/21/24 Jonathan Alvarez MD [address] [place] [address], [address] [place] [address] Urology 05/14/23 Anival Borja MD [address] [place] [address], [address] [place] [address] Neurologist Neurology 01/04/23 Lyndsay Reynoso FNP [address] [place] [address] [place] [address] [email or web address] Nurse Practitioner Pain Medicine 05/27/22 Gutierrez Pittman MD [address] [place] [phone] Investigator Claims Cardiology 05/27/24 documented as of this encounter Additional Source Comments The information contained in this document represents components of the legal health record. It is not the complete legal health record.[facility]
--- OUTSIDE RECORDS SUMMARY | 2024-07-31 10:54 | XMS_ITS | Encounter Summary ---
Author Organization [facility] Address [address] [facility] [address] [facility] [facility] [address] [place] [address] Phone Care Team Providers Care Application Software Engineer Name Role Phone JessicaMattie oliveirasheryl Mccrackengh [facility] Primary Care Provider Cash Fernandes MD Unavailable [phone] Seven Menchaca MD Unavailable Chavo Jack MD Primary Care Provider [phone] Keren Poon [facility] Primary Care Provid er Chavo Jack MD Unavailable Willi Wells MD Unavailable Jose Thakur MD Unavailable [phone] Dana Rucker CLAY DRY PRESS MIXER OPERATOR Unavailable Jonathan Alvarez MD Unavailable [phone] Anival Borja MD Unavailable [phone] Lyndsay Reynoso CLAY DRY PRESS MIXER OPERATOR Unavailable [phone] Gutierrez Pittman MD Unavailable [phone] Reason for Referral * MRI/CAT Scan - Closed Specialty Diagnoses / Procedures Referred By Cayden montoya Referred To Contact Radiology Diagnoses Epigastric abdominal pain FH: pancreatic cancer Procedures CT Abdomen Only (No Pelvis) Argelia Taylor NP [address] [place] [address] Referral ID Status Reason Start Date Expiration Date Visits Re quested Visits Authorized [id number] Closed 04/09/2022 04/09/2023 1 1 Encounter Details Date Type Department Care Team (Latest Contact Info) Description 04/09/2022 Transcribe Orders Virtual Department 30 [place] [address] Argelia Taylor NP [address] [place] [address] Epigastric abdominal pain (Primary Dx); FH: pancreatic [...] high school, GED, job training, learning the Kyrgyz language, technical skills, or developing parenting skills)? [...] Contact Info) Description 06/06/2024 Procedure Pass [address] [address] 08/04/2024 2:30 AM EDT [facility] [address] [place] [address] Orlando Mckeon RN [address] [place] [address] [email or web address] 08/11/2024 2:00 AM EDT [facility] [address] [place] [address] Orlando Mckeon RN [address] [place] [address] [email or web address] 08/18/2024 1:30 AM EDT Home Care [facility] [address] [place] [address] Orlando Mckeon RN [address] [place] [address] [email or web address] 08/25/2024 1:00 AM EDT Home [facility] [address] [place] [phone] Orlando Mckeon RN 168 [place] [address] 09/01/2024 12:30 AM EDT Appointment [facility] [address] [place] [phone] Orlando Mckeon RN 168 [place] [address] 09/18/2024 2:30 PM EDT Office Visit [facility] Infectious Diseases 22 [place] [address] Dana Rucker FNP 15 [facility], [address] [place] [address] 11/26/2024 3:30 PM EDT Office Visit [facility] [address] [place] [address] Keren Poon, CONTROL SYSTEMS SPECIALIST [address] [address] 12/11/2024 2:00 PM EDT Appointment [facility] 30 [place] [address] Keren Poon, CONTROL SYSTEMS SPECIALIST [address] [address] 01/07/2025 2:30 PM EDT Office Visit [facility] [address] [place] [address] Jose Thakur MD 30 [place] [address] 01/29/2025 3:00 PM EDT Office Visit [address] [place] [address] Cleve Kerenelsie Glaser, CONTROL SYSTEMS SPECIALIST 170 [facility], 2nd [place] [address] [email or web address] 06/03/2025 2:00 PM EST Office Visit [address] [place], [place] [address] Cleve Keren Jailyn, CONTROL SYSTEMS SPECIALIST 170 [facility], [address]nd [place] [address] [email or web address] documented as of this encounter Results * [...] providers of potentially importantfindings. Argelia Madina Willemain DAIRY TECHNOLOGIST IMG CT XSPECIALTY ORDERABLES documented in this [...] documented as of this encounter Care Teams Application Software Engineer Relationship Specialty Start Date End Date Ita Pineda CNP 40 [place] [address] PCP - General Internal Medicine 08/19/20 09/17/22 Chavo Jack MD 40 [place] [address] PCP - General Internal Medicine 09/18/22 01/30/23 Keren Poon CNP [address] [place] [address], [address] [place] [address] [email or web address] PCP - General Family Medicine 01/31/23 Cash Fernandes MD 10 [place] [address] [email or web address] Gastroenterology 08/23/20 Seven Menchaca MD 40 [place] [address] [email or web address] Insurance Assigned Provider 08/04/22 08/03/23 Chavo Jack MD 40 [place] [address] [email or web address] Insurance Assigned Provider 08/03/23 05/04/24 Willi Wells MD [address] [address] Rheumatology 02/04/24 Jose Thakur MD 30 [place] [address] [email or web address] Warehouse Picker Pulmonary Disease 03/17/24 Dana Rucker FNP 15 [facility], [address] [place] [address] [email or web address] Nurse Practitioner Infectious Diseases 05/21/24 Jonathan Alvarez MD [address] [place] [address], [address] [place] [address] [email or web address] Urology 05/14/23 Anival Borja MD [address] [place] [address], [address] [place] [address] [email or web address] Neurologist Neurology 01/04/23 Lyndsay Reynoso FNP [address] [place] [address] [place] [address] [email or web address] Nurse Practitioner Pain Medicine 05/27/22 Gutierrez Pittman MD [address] [place] [phone] Slat Pickler Cardiology 05/27/24 documented as of this encounter Additional Source Comments The information contained in this document represents components of the legal health record. It is not the complete legal health record.[facility]
--- OUTSIDE RECORDS SUMMARY | 2024-07-31 10:54 | XMS_ITS | Encounter Summary ---
Author Organization [facility] Address [address] [place] [address] Phone Care Team Providers Care Gas Engine Mechanic Name Role Phone JessicaMattie oliveirasheryl Mccrackengh [facility] Primary Care Provider Cash Fernandes MD Unavailable [phone] Seven Menchaca MD Unavailable [phone] Chavo Jack MD Primary Care Provider [phone] Keren Poon [facility] Primary Care Provid er Chavo Jack MD Unavailable Willi eWlls MD Unavailable Jose Thakur MD Unavailable Dana Rucker INSTRUCTOR DECORATING Unavailable Jonathan Alvarez MD Unavailable [phone] Anival Borja MD Unavailable [phone] Lyndsay Reynoso INSTRUCTOR DECORATING Unavailable [phone] Gutierrez Pittman MD Unavailable [phone] Encounter Details Date Type Department Care Team (Late st Contact Info) Description 02/21/2022 Procedure Pass [facility] End[facility] Admitting Dept Virtual Department 30 [place] [address] Social History Tobacco Use Types Packs/Day Years [...] high school, GED, job training, learning the Urdu language, technical skills, or developing parenting skills)? [...] st Contact Info) Description 06/06/2024 Procedure Pass [address] [address] 08/04/2024 2:30 AM EDT Home Care Visit [facility] [address] [place] [phone] Orlando Mckeon RN 168 [place] [address] [email or web address] 08/11/2024 2:00 AM EDT Home Care Visit [facility] [address] [place] [phone] Orlando Mckeon RN [address] [place] [address] [email or web address] 08/18/2024 1:30 AM EDT Home Care Visit [facility] [address] [place] [phone] Orlando Mckeon RN [address] [place] [address] [email or web address] 08/25/2024 1:00 AM EDT Home Care Visit [facility] [address] [place] [phone] Orlando Mckeon RN [address] [place] [address] [email or web address] 09/01/2024 12:30 AM EDT Appointment [facility] [address] [place] [phone] Orlando Mckeon RN [address] [place] [address] [email or web address] 09/18/2024 2:30 PM EDT Office Visit [facility] Infectious Diseases 22 [place] [address] Dana Rucker, DIVYA 15 [facility], [address] [place] [address] 11/26/2024 3:30 PM EDT Office Visit [address] [place] [address] Keren Poon CNP [address] [place] [address] 12/11/2024 2:00 PM EDT Appointment [facility] 30 [place] [address] Keren Poon, ORI [address] [place] [address] 01/07/2025 2:30 PM EDT Office Visit [facility] [address] [place] [address] Jose Thakur MD 30 [place] [address] 01/29/2025 3:00 PM EDT Office Visit [address] [place] [address] Keren Poon, ORI [address] [place] [address] 06/03/2025 2:00 PM EST Office Visit [address] [place] [address] Keren Poon, ORI [address] [place] [address] documented as of this encounter Visit Diagnoses [...] documented as of this encounter Care Teams Gas Engine Mechanic Relationship Specialty Start Date End Date Ita Pineda CNP 40 [place] [address] [email or web address] PCP - General Internal Medicine 08/19/20 09/17/22 Chavo Jack MD 40 [place] [address] [email or web address] PCP - General Internal Medicine 09/18/22 01/30/23 Keren Poon CNP [address] [place] [address], 2nd [place] [address] PCP - General Family Medicine 01/31/23 Cash Fernandes MD 10 [place] [address] [email or web address] Gastroenterology 08/23/20 Seven Menchaca MD 40 [place] [address] [email or web address] Insurance Assigned Provider 08/04/22 08/03/23 Chavo Jack MD 40 [place] [address] [email or web address] Insurance Assigned Provider 08/03/23 05/04/24 Willi Wells MD [address] [place], [place] [address] [address] Rheumatology 02/04/24 Jose Thakur MD [address] [place] [address] [email or web address] Director Sales Training Pulmonary Disease 03/17/24 Dana Rucker FNP 15 [facility], 2nd [place] [address] [email or web address] Nurse Practitioner Infectious Diseases 05/21/24 Jonathan Alvarez MD [address] [place] [address], [address] [place] [address] [email or web address] Urology 05/14/23 Anival Borja MD [address] [place] [address], [address] [place] [address] Neurologist Neurology 01/04/23 Lyndsay Reynoso FNP 10 [facility] [address] [place] [address] [email or web address] Nurse Practitioner Pain Medicine 05/27/22 Gutierrez Pittman MD [address] [place] [phone] Demurrage Clerk Cardiology 05/27/24 documented as of this encounter Additional Source Comments The information contained in this document represents components of the legal health record. It is not the complete legal health record.[facility]
--- OUTSIDE RECORDS SUMMARY | 2024-07-31 10:54 | XMS_ITS | Encounter Summary ---
Author Organization [facility] Address [address] [place] [address] Phone Care Team Providers Care Fan Runner Name Role Phone Patrick Sanchez MD Unavailable [phone] Keren Mabry MD Unavailable Louisa Hogan MD Unavailable Charly Saxena DO Unavailable [phone] Abhinav Muhammad MD Unavailable [phone] Cheryl Giraldo NP Unavailable Wilfrido Steel MD Unavailable [phone] Sharon MartinC Unavailable Ita Pineda [facility] Primary Care Provider Cash Fernandes MD Unavailable [phone] Seven Menchaca MD Unavailable Chavo Jack MD Primary Care Provider [phone] Keren Poon [facility] Primary Care Provid er Chavo Jack MD Unavailable Willi Wells MD Unavailable Jose Thakur MD Unavailable [phone] Dana Rucker SERVICE OPERATOR Unavailable [phone] Jonathan Alvarez MD Unavailable [phone] Anival Borja MD Unavailable [phone] Lyndsay Reynoso SERVICE OPERATOR Unavailable [phone] Gutierrez Pittman MD Unavailable [phone] Encounter Details Date Type Department Care Team (Late st Contact Info) Description 08/19/2020 Procedure Pass [facility] Endoscopy Admitting Dept Virtual Department [address] [place] [address] Social History Tobacco Use Types Packs/Day Years [...] st Contact Info) Description 06/06/2024 Procedure Pass [facility] [address] [place] [address] 08/04/2024 2:30 AM EDT [facility] [address] [place] [address] Orlando Mckeon RN 168 [place] [address] [email or web address] 08/11/2024 2:00 AM EDT [facility] [address] [place] [phone] Orlando Mckeon RN 168 [place] [address] 08/18/2024 1:30 AM EDT Home Care Visit [facility] [address] [place] [phone] Orlando Mckeon RN 168 [place] [address] 08/25/2024 1:00 AM EDT Home Care Visit [facility] [address] [place] [address] Orlando Mckeon RN 168 [place] [address] 09/01/2024 12:30 AM EDT Appointment [facility] [address] [place] [address] Orlando Mckeon RN 168 [place] [address] 09/18/2024 2:30 PM EDT Office Visit [facility] Infectious Diseases 22 [place] [address] Dana Rucker, DIVYA [address] [address] 11/26/2024 3:30 PM EDT Office Visit [facility] [address] [place] [address] [place] [address] Keren Poon, BLEACHER OPERATOR [address] [address] 12/11/2024 2:00 PM EDT Appointment [facility] 30 [place] [address] Keren Poon, ORI [address] [address] [email or web address] 01/07/2025 2:30 PM EDT Office Visit [facility] [address] [place] [address] Jose Thakur MD 30 [place] [address] 01/29/2025 3:00 PM EDT Office Visit [address] [place] [address] Keren Poon, BLEACHER OPERATOR 170 [facility], 2nd [place] [address] 06/03/2025 2:00 PM EST Office Visit [address] [place] [address] Keren Poon, BLEACHER OPERATOR 170 [facility], 2nd [place] [address] [email or web address] documented as of [...] as of this encounter Care Teams Fan Runner Relationship Specialty Start Date End Date Ita Pineda CNP 40 [place] [address] [email or web address] PCP - General Internal Medicine 08/19/20 09/17/22 Chavo Jack MD 40 [place] [address] PCP - General Internal Medicine 09/18/22 01/30/23 Keren Poon CNP [address] [place] [address], 2nd [place] [address] PCP - General Family Medicine 01/31/23 Patrick Sanchez MD [address] [place] [address] Department [place] [address] [email or web address] Historical LMR Provider 09/10/14 Keern Mabry MD [address] [place] [address] Historical LMR Provider 07/10/18 Louisa Hogna MD [address] [place] [address] [email or web address] Historical LMR Provider 07/10/1807/29 Charly Saxena DO [address] [place] [address] Historical LMR Provider 07/10/18 Abhinav Muhammad MD [address] [place] [address] 104 [place] [address] [email or web address] Historical LMR Provider 07/10/18 08/22/20 Cheryl Giraldo NP [address] [place] [address] Historical LMR Provider 07/10/18 Wilfrido Steel MD [address] [place] [address]. [address] [place] [address] Historical LMR Provider 07/10/18 Sharon Martin PA-C [address] [place] [address] 104 [place] [address] [email or web address] Historical LMR Provider 07/10/18 08/22/20 Cash Fernandes MD [address] [place] [address] Gastroenterology 08/23/20 Seven Menchaca MD [address] [place] [address] Insurance Assigned Provider 08/04/22 08/03/23 Chavo Jack MD 40 [place] [address] [email or web address] Insurance Assigned Provider 08/03/23 05/04/24 Willi Wells MD [address] Vinayak 304_[place] [address] Rheumatology 02/04/24 Joes Thakur MD 30 [place] [address] [email or web address] Parts Person Pulmonary Disease 03/17/24 Dana Rucker FNP [address] [facility], 2nd [place] [address] [email or web address] Nurse Practitioner Infectious Diseases 05/21/24 Jonathan Alvarez MD [address] [place] [address], [address] [place] [address] [email or web address] Urology 05/14/23 Anival Borja MD [address] [place] [address], [address] [place] [address] Neurologist Neurology 01/04/23 Lyndsay Reynoso FNP [address] [place] [address] [email or web address] Nurse Practitioner Pain Medicine 05/27/22 Gutierrez Pittman MD 40 [place] [address] Cake Washer Cardiology 05/27/24 documented as of this encounter Additional Source Comments The information contained in this document represents components of the legal health record. It is not the complete legal health record.[facility]
--- OUTSIDE RECORDS SUMMARY | 2024-07-31 10:54 | XMS_ITS | Encounter Summary ---
Author Organization [facility] Address [address] [place] [address] Phone Care Team Providers Care Cruise Agent Name Role Phone Cash Fernandes MD Unavailable [phone] Keren Poon [facility] Primary Care Provid er Willi Wells MD Unavailable Jose Thakur MD Unavailable [phone] Dana Rucker STRUCTURAL LAYOUT WORKER Unavailable Jonathan Alvarez MD Unavailable [phone] Anival Borja MD Unavailable Lyndsay Reynoso STRUCTURAL LAYOUT WORKER Unavailable Gutierrez Pittman MD Unavailable [phone] Encounter Details Date Type Department Care Team (Late st Contact Info) Description 05/09/2024 Procedure Pass [facility] Scan - [address] [address] Social History Tobacco Use Types Packs/Day Years [...] st Contact Info) Description 06/06/2024 Procedure Pass [address] [address] 08/04/2024 2:30 AM EDT [facility] [address] [place] [phone] Orlando Mckeon RN [address] [place] [address] [email or web address] 08/11/2024 2:00 AM EDT [facility] [address] [place] [address] Orlando Mckeon RN [address] [place] [address] [email or web address] 08/18/2024 1:30 AM EDT [facility] [address] [place] [phone] Orlando Mckeon RN [address] [place] [address] [email or web address] 08/25/2024 1:00 AM EDT [facility] [address] [place] [phone] Orlando Mckeon RN [address] [place] [address] [email or web address] 09/01/2024 12:30 AM EDT Appointment [facility] 30 [place] [address] Orlando Mckeon RN 168 [place] [address] 09/18/2024 2:30 PM EDT Office Visit [facility] Infectious Diseases 22 [place] [address] Dana Rucker, DIVYA 15 [facility] 2nd [place] [address] 11/26/2024 3:30 PM EDT Office Visit [address] [place] [address] Keren Poon, ORI [address] [place] [address] 12/11/2024 2:00 PM EDT Appointment [facility] 30 [place] [address] Keren Poon, ORI [address] [address] 01/07/2025 2:30 PM EDT Office Visit [facility] [address] [place] [address] Jose Thakur MD 30 [place] [address] 01/29/2025 3:00 PM EDT Office Visit [address] [place] [address] Keren Poon, ORI [address] [place] [address] [place] [address] 06/03/2025 2:00 PM EST Office Visit [facility] [address] [place] [address] [place] [address] [employer] Kerenelsie Glaser, ORI [address] [place] documented as of this encounter Visit Diagnoses [...] documented as of this encounter Care Teams Cruise Agent Relationship Specialty Start Date End Date Cleve Kerenelsie Glaser, ORI [address] [place] [address] [place] [address] PCP - General Family Medicine 01/31/23 Cash Fernandes MD [address] [place] [phone] Gastroenterology 08/23/20 Willi Wells MD [address] [place], [place] [address] [address] Rheumatology 02/04/24 Jose Thakur MD 30 [place] [address] Body Trimmer Upholsterer Pulmonary Disease 03/17/24 Dana Rucker FNP 15 [facility], 2nd [place] [address] Nurse Practitioner Infectious Diseases 05/21/24 Jonathan Alvarez MD [address] [place] [address], [address] [place] [address] Urology 05/14/23 Anival Borja MD [address] [place] [address], [address] [place] [address] Neurologist Neurology 01/04/23 Lyndsay Reynoso FNP [address] [place] [address] [place] [address] [email or web address] Nurse Practitioner Pain Medicine 05/27/22 Gutierrez Pittman MD 40 [place] [address] Casino Enforcement Agent Cardiology 05/27/24 documented as of this encounter Additional Source Comments The information contained in this document represents components of the legal health record. It is not the complete legal health record.[facility]
--- OUTSIDE RECORDS SUMMARY | 2024-07-31 10:54 | XMS_ITS | Encounter Summary ---
Author Organization [facility] Address [address] [place] [address] Phone Care Team Providers Care Cook Helper Meat Name Role Phone Cash Fernandes MD Unavailable [phone] Keren Poon [facility] Primary Care Provid er Chavo Jack MD Unavailable Willi Wells MD Unavailable Jose Thakur MD Unavailable Dana Rucker MANAGEMENT ASSISTANT Unavailable [phone] Jonathan Alvarez MD Unavailable [phone] Anival Borja MD Unavailable [phone] Lyndsay Reynoso MANAGEMENT ASSISTANT Unavailable Gutierrez Pittman MD Unavailable [phone] Encounter Details Date Type Department Care Team (Latest Contact Info) Description 04/30/2024 Transcribe Orders Virtual Department 30 [place] [address] Argelia Taylor, JULI 10 [place], [place] [phone] Lower abdominal pain (Primary Dx); Diarrhea, unspecified [...] st Contact Info) Description 06/06/2024 Procedure Pass [address] [address] 08/04/2024 2:30 AM EDT Home Care Visit [facility] [address] [place] [address] Orlando Mckeon RN [address] [place] [address] 08/11/2024 2:00 AM EDT [facility] [address] [place] [address] Orlando Mckeon RN [address] [place] [address] 08/18/2024 1:30 AM EDT [facility] [address] [place] [address] Orlando Mckeon RN [address] [place] [address] 08/25/2024 1:00 AM EDT Home Care Visit [facility] 30 [place], [place] [phone] Orlando Mckeon RN 168 [place] [address] 09/01/2024 12:30 AM EDT Appointment [facility] 30 [place], [place] [phone] Orlando Mckeon RN 168 [place] [address] 09/18/2024 2:30 PM EDT Office Visit [facility] Infectious Diseases 22 [place] [address] Dana Rucker FNP [address] [address] 11/26/2024 3:30 PM EDT Office Visit [facility] [address] [place] [address] [place] [address] Keren Poon, GRANULAR OPERATOR [address] [address] 12/11/2024 2:00 PM EDT Appointment [facility] 30 [place] [address] Keren Poon, GRANULAR OPERATOR [address] [address] 01/07/2025 2:30 PM EDT Office Visit [facility] [address] [place] [address] Jose Thakur MD 30 [place] [address] [email or web address] 01/29/2025 3:00 PM EDT Office Visit [address] [place], [place] [address] Keren Poon CNP [address] [place] [address], [address] [place] [address] [place] [address] [email or web address] 06/03/2025 2:00 PM EST Office Visit [address] [place] [address] Keren Poon CNP [address] [place] [address] [email or web address] documented as of this encounter Visit Diagnoses [...] documented as of this encounter Care Teams Cook Helper Meat Relationship Specialty Start Date End Date Keren Poon CNP [address] [place] [address], [address] [place] [address] [place] [address] [email or web address] PCP - General Family Medicine 01/31/23 Cash Fernandes MD 10 [place] [address] [email or web address] Gastroenterology 08/23/20 Chavo Jack MD 40 [place] [address] [email or web address] Insurance Assigned Provider 08/03/23 05/04/24 Willi Wells MD [address] [place] [address] 304_[place] [address] Rheumatology 02/04/24 Jose Thakur MD [address] [place] [address] [email or web address] Production Assembly Supervisor Pulmonary Disease 03/17/24 Dana Rucker FNP 15 [facility], 2nd [place] [address] [email or web address] Nurse Practitioner Infectious Diseases 05/21/24 Jonathan Alvarez MD [address] [place] [address], [address] [place] [address] [email or web address] Urology 05/14/23 Anival Borja MD [address] [place] [address], [address] [place] [address] [email or web address] Neurologist Neurology 01/04/23 Lyndsay Reynoso FNP [address] [place] [address] [place] [address] [email or web address] Nurse Practitioner Pain Medicine 05/27/22 Gutierrez Pittman MD 40 [place] [address] Supervisor Tan Room Cardiology 05/27/24 documented as of this encounter Additional Source Comments The information contained in this document represents components of the legal health record. It is not the complete legal health record.[facility]
--- OUTSIDE RECORDS SUMMARY | 2024-07-31 10:54 | XMS_ITS | Encounter Summary ---
Author Organization [facility] Address [address] [facility] [place] [address] Phone Care Team Providers Care Dipper Machine Operator Name Role Phone Cash Fernandes MD Unavailable [phone] Keren Poon [facility] Primary Care Provid er Willi Wells MD Unavailable Jose Thakur MD Unavailable [phone] Dana Rucker REGISTERED NURSE FIRST ASSISTANT Unavailable [phone] Jonathan Alvarez MD Unavailable [phone] Anival Borja MD Unavailable Lyndsay Reynoso REGISTERED NURSE FIRST ASSISTANT Unavailable [phone] Gutierrez Pittman MD Unavailable [phone] Reason for Visit * Auth/Cert (Routine) Specialty Diagnoses / Procedures Referred By Contac t Referred To Contact Referral ID Status Reason Start Date Expiration Date Visits Re quested Visits Authorized [id number] 1 1 Encounter Details Date Type Department Care Team ([facility] st Contact Info) Description 07/28/2024 1:00 PM EDT Home Care Visit [facility] [address] [place], [place] [phone] Trice De Santiago LPN [address] [place] [address] [email or web address] PROOF MACHINE OPERATOR SUPERVISOR HOME VISIT Social History Tobacco Use Types [...] Sign Reading Time Taken Comments Blood Pressure 122/64 07/28/2024 2:36 PM EDT Pulse 90 07/28/2024 2:36 PM EDT Temperature 35.8 ??C (96.5 ??F) 07/28/2024 2:36 PM ED T Respiratory Rate 18 07/28/2024 2:36 PM EDT Oxygen Saturation 95% 07/28/2024 2:36 PM EDT Inhaled Oxygen Concentration - - Weight - - Height - - Body Mass Index - - documented in this encounter Plan of Treatment Upcoming Encounters Date Type Department Care Team (Late st Contact Info) Description 06/06/2024 Procedure Pass [address] [address] 08/04/2024 2:30 AM EDT Home Care Visit [facility] [address] [place] [phone] Orlando Mckeon RN [address] [place] [address] 08/11/2024 2:00 AM EDT Home Care Visit [facility] [address] [place] [address] Orlando Mckeon RN [address] [place] [address] 08/18/2024 1:30 AM EDT Home Care Visit [facility] [address] [place] [phone] Orlando Mckeon RN [address] [place] [address] 08/25/2024 1:00 AM EDT [facility] [address] [place] [phone] Orlando Mckeon RN [address] [place] [address] 09/01/2024 12:30 AM EDT Appointment [facility] [address] [place] [phone] Orlando Mckeon RN [address] [place] [address] 09/18/2024 2:30 PM EDT Office Visit [facility] Infectious Diseases [address] [place] [address] Dana Rucker, REGISTERED NURSE FIRST ASSISTANT [address] [address] 11/26/2024 3:30 PM EDT Office Visit [facility] [address] [place] [address] [place] [address] Keren Poon, [facility] [address] [address] 12/11/2024 2:00 PM EDT Appointment [facility] [address] [place] [address] Keren Poon, ORI [address] [facility], 2nd [place] [address] [email or web address] 01/07/2025 2:30 PM EDT Office Visit [facility], Allergy and Critical Care Medicine [address] [place] [address] Jose Thakur MD 30 [place] [address] 01/29/2025 3:00 PM EDT Office Visit [address] [place] [address] Keren Poon, ORI [address] [facility], 2nd [place] [address] [email or web address] 06/03/2025 2:00 PM EST Office Visit [address] [place] [address] Keren Poon, ORI [address] [facility], [address]nd [place] [address] [email or web address] documented as of this encounter Visit Diagnoses [...] - Care Plan Visit Details Visit Type -PROOF MACHINE OPERATOR SUPERVISOR HOME VISIT Discipline -Mcfp Problems Problem Description Start Date Status Goals Interve ntions HH - Medication Management Disciplines: All Active Home Health Disciplines 07/14/2024 Active 1 goal linked to scheduled/document ed intervention 2 goal interventions scheduled/document ed in this visit HH - Focus of Care and Teaching Disciplines: All Active Home Health Disciplines w/RD 07/14/2024 Active 1 goal linked to scheduled/document ed intervention 1 goal intervention scheduled/document ed in this visit HH - Emergency Planning - Knowledge of Disciplines: All Active Home Health Disciplines 07/14/2024 Active 1 goal linked to scheduled/document ed intervention 2 goal interventions scheduled/document ed in this visit HH - Infection - Actual or Risk of Disciplines: All Active Home Health Disciplines 07/14/2024 Active 1 goal linked to scheduled/document ed intervention HH - Standard of Care Disciplines: All Active Home Health Disciplines 07/14/2024 Active 1 goal linked to scheduled/document ed intervention 2 goal interventions scheduled/document ed in this visit HH - Pain Disciplines: All Active Home Health Disciplines 07/14/2024 Active 1 goal linked to scheduled/document ed intervention Goals Goal Associated Problem Outcome Goal Met? [...] - Infection - Actual or Risk of Progressing No HH - Achieve care management for a safe to home/community discharge from homecare HH - Standard of Care No HH - Frequency of pain interfering with patient's activity or movement will improve with activity or movement by discharge. Description: Pain will be managed over the course of care. Patient's acceptable level of pain is 0 - no pain. HH - Pain Progressing No Interventions Intervention Associated Problem/Goal Status [...] and medication reconciliation as indicated. Pharmacy information: Description: [facility] Problem:HH - Medication Management Goal:HH - Safe medication management, avoid unnecessary harm related to medication errors and/or interactions Completed HH - Focus of care, teaching completed and plan for next visit Problem:HH - Focus of Care and Teaching Goal:HH - Communication and collaboration to achieve patient goals Completed Primary Clinical Focus this Visit & Instruction Provided: Pt VSS> LS CTA. All meds reviewed. Oral Vanco taper noted and pt reports 2-3 semi-formed stools daily. Precautions and diet for Cdiff discussed. Fecal transplant is planned pending insurance approval. Denies any S/Sx UTI. She endorses severe chronic pain due to Rheumatoid and osteoarthritis, with deformity of hands.Unable to take her regular rheumatoid medication due to her active infectious state. Taking 2.5mg prednisone daily for maintenance until fecal transplant and clearing of Cdiff. Pt states she saw her best worker today and was given steroid injections in both knees. Pain level of 7/10 now; was 10/10 according to her statement. T/E alternative forms of pain relief. Instruction Provided to: pt/cg Response to Instruction/Teaching: teach back Cdiff precautions Plan for Next Visit Specific Focus & Education Needed: GI//Pain level assessements New Orders: na Updated Discharge Plan: dc snv when goals met - I/E management of care in an [...] emergency related situation. Completed HH - Assess vital signs, pulse oximetry, pain, and as indicated, orthostatic vital signs Description: use agency-specific parameters Problem: - Standard of Care Goal:HH - Achieve care management for a safe to home/community discharge from homecare Completed HH - Assess skin integrity Problem: - Standard of Care Goal:HH - Achieve care management for a safe to home/community discharge from homecare Completed documented in this encounter Care Teams Dipper Machine Operator Relationship Specialty Start Date End Date Keren Poon CNP [address] [place] [address], 2nd [place] [address] [email or web address] PCP - General Family Medicine 01/31/23 Cash Fernandes MD [address] [place] [address] Gastroenterology 08/23/20 Willi Wells MD 10 [facility] Vinayak 304_[place] [address] Rheumatology 02/04/24 Jose Thakur MD 30 [place] [address] Auricular Acupuncturist Pulmonary Disease 03/17/24 Dana Rucker FNP 15 [facility], [address] [place] [address] [email or web address] Nurse Practitioner Infectious Diseases 05/21/24 Jonathan Alvarez MD [address] [place] [address], [address] [place] [address] [email or web address] Urology 05/14/23 Anival Borja MD [address] [place] [address], [address] [place] [address] [email or web address] Neurologist Neurology 01/04/23 Lyndsay Reynoso FNP [address] [place] [address] [email or web address] Nurse Practitioner Pain Medicine 05/27/22 Gutierrez Pittman MD 40 [place] [address] Proctologist Cardiology 05/27/24 documented as of this encounter Additional Source Comments The information contained in this document represents components of the legal health record. It is not the complete legal health record.[facility]
--- OUTSIDE RECORDS SUMMARY | 2024-07-31 10:54 | XMS_ITS | Encounter Summary ---
Author Organization [facility] Address [address] [place] [address] Phone Care Team Providers Care Land Leveler Name Role Phone JessicaMattie oliveirasheryl Mccrackengh [facility] Primary Care Provider Cash Fernandes MD Unavailable [phone] Seven Menchaca MD Unavailable Chavo Jack MD Primary Care Provider [phone] Keren Poon [facility] Primary Care Provid er Chavo Jack MD Unavailable Willi Wells MD Unavailable Jose Thakur MD Unavailable Dana Rucker [employer]IEF LIBRARIAN [employer] OR DEPARTMENT Unavailable [phone] Jonathan Alvarez MD Unavailable [phone] Anival Borja MD Unavailable [phone] Lyndsay Reynoso CHIEF LIBRARIAN [employer] OR DEPARTMENT Unavailable Gutierrez Pittman MD Unavailable [phone] Encounter Details Date Type Department Care Team (Late st Contact Info) Description 02/10/2021 Procedure Pass [facility], [facility] 30 [place] [address] Social History Tobacco Use Types Packs/Day Years [...] high school, GED, job training, learning the Beninese language, technical skills, or developing parenting skills)? [...] Description 06/06/2024 Procedure Pass [facility], [address] [address] 08/04/2024 2:30 AM EDT Home Care Visit [facility] [address] [place] [phone] Orlando Mckeon RN [address] [place] [address] [email or web address] 08/11/2024 2:00 AM EDT Home Care Visit [facility] [address] [place] [phone] Orlando Mckeon RN [address] [place] [address] [email or web address] 08/18/2024 1:30 AM EDT Home Care Visit [facility] [address] [place] [phone] Orlando Mckeon RN [address] [place] [address] [email or web address] 08/25/2024 1:00 AM EDT Home Care Visit [facility] [address] [place] [phone] Orlando Mckeon, RENZO [address] [place] [address] [email or web address] 09/01/2024 12:30 AM EDT Appointment [facility] [address] [place] [phone] Orlando Mckeon RN [address] [place] [address] [email or web address] 09/18/2024 2:30 PM EDT Office Visit [facility] Infectious Diseases 22 [place] [address] Dana Rucker FNP [address] [address] 11/26/2024 3:30 PM EDT Office Visit [address] [place], [place] [address] Keren Poon, ORI [address] [place] [address] 12/11/2024 2:00 PM EDT Appointment [facility] 30 [place] [address] Keren Poon, ORI [address] [place] [address] 01/07/2025 2:30 PM EDT Office Visit [facility] Pulmonary, Allergy and Critical Care Medicine [address] [place] [address] Jose Thakur MD 30 [place] [address] 01/29/2025 3:00 PM EDT Office Visit [address] [place] [address] Keren Poon CNP [address] [place] [address] 06/03/2025 2:00 PM EST Office Visit [address] [place] [address] Keren Poon CNP [address] [place] [address] documented as of this encounter Visit Diagnoses [...] documented as of this encounter Care Teams Land Leveler Relationship Specialty Start Date End Date Ita Pineda CNP 40 [place] [address] [email or web address] PCP - General Internal Medicine 08/19/20 09/17/22 Chavo Jack MD 40 [place] [address] [email or web address] PCP - General Internal Medicine 09/18/22 01/30/23 Keren Poon CNP [address] [place] [address], 2nd [place] [address] [email or web address] PCP - General Family Medicine 01/31/23 Cash Fernandes MD 10 [place] [address] [email or web address] Gastroenterology 08/23/20 Seven Menchaca MD 40 [place] [address] [email or web address] Insurance Assigned Provider 08/04/22 08/03/23 Chavo Jack MD 40 [place] [address] [email or web address] Insurance Assigned Provider 08/03/23 05/04/24 Willi Wells MD [address] [place], [place] [address] [address] Rheumatology 02/04/24 Jose Thakur MD [address] [place] [address] [email or web address] Poultry Hatchery Laborer Pulmonary Disease 03/17/24 Dana Rucker FNP [address] [facility], 2nd [place] [address] [email or web address] Nurse Practitioner Infectious Diseases 05/21/24 Jonathan Alvarez MD [address] [place] [address], [address] [address] [email or web address] Urology 05/14/23 Anival Borja MD [address] [place] [address], [address] [place] [address] [email or web address] Neurologist Neurology 01/04/23 Lyndsay Reynoso FNP 10 [facility] [address] [place] [address] [email or web address] Nurse Practitioner Pain Medicine 05/27/22 Gutiererz Pittman MD 40 [place] [address] Educational Audiologist Cardiology 05/27/24 documented as of this encounter Additional Source Comments The information contained in this document represents components of the legal health record. It is not the complete legal health record.[facility]
--- OUTSIDE RECORDS SUMMARY | 2024-07-31 10:54 | XMS_ITS | Encounter Summary ---
Author Organization [facility] Address [address] [place] [address] Phone Care Team Providers Care Coordinator Of Online Programs Name Role Phone Cash Fernandes MD Unavailable [phone] Seven Menchaca MD Unavailable [phone] Chavo Jack MD Primary Care Provider [phone] Keren Poon [facility] Primary Care Provid er Chavo Jack MD Unavailable Willi Wells MD Unavailable Jose Thakur MD Unavailable Dana Rucker RADIOLOGY ASSISTANT Unavailable Jonathan Alvarez MD Unavailable [phone] Anival Borja MD Unavailable Lyndsay Reynoso RADIOLOGY ASSISTANT Unavailable [phone] Gutierrez Pittman MD Unavailable [phone] Encounter Details Date Type Department Care Team (Late st Contact Info) Description 10/11/2022 Transcribe Orders [facility] [address] [facility] [place], [place] [address] Anival Borja MD [address] [facility], [address] [place] [address] Social History Tobacco Use Types Packs/Day Years [...] Contact Info) Description 06/06/2024 Procedure Pass [address] [address] 08/04/2024 2:30 AM EDT [facility] [address] [place] [phone] Orlando Mckeon RN [address] [place] [address] 08/11/2024 2:00 AM EDT [facility] [address] [place] [phone] Orlando Mckeon RN [address] [place] [address] 08/18/2024 1:30 AM EDT [facility] [address] [place] [phone] Orlando Mckeon RN 168 [place] [address] 08/25/2024 1:00 AM EDT [facility] [address] [place] [phone] Orlando Mckeon RN [address] [place] [address] 09/01/2024 12:30 AM EDT [facility]ointment [facility] [address] [place] [phone] Orlando Mckeon RN [address] [place] [address] 09/18/2024 2:30 PM EDT Office Visit [facility] Infectious Diseases [address] [place] [address] Dana Rucker, RADIOLOGY ASSISTANT 15 [facility], [address] [place] [address] 11/26/2024 3:30 PM EDT Office Visit [address] [place] [address] Keren Poon, ORI [address] [place] [address] 12/11/2024 2:00 PM EDT Appointment [facility] 30 [place] [address] Keren Poon, ORI [address] [address] 01/07/2025 2:30 PM EDT Office Visit [facility] Pulmonary, Allergy and Critical Care Medicine [address] [place] [address] Jose Thakur MD 30 [place] [address] 01/29/2025 3:00 PM EDT Office Visit [address] [place] [address] Keren Poon, ORI [address] [address] 06/03/2025 2:00 PM EST Office Visit [address] [place] [address] Keren Poon CNP [address] [place] [address], 2nd [place] [address] [email or web address] documented as of this encounter Visit Diagnoses [...] documented as of this encounter Care Teams Coordinator Of Online Programs Relationship Specialty Start Date End Date Chavo Jack MD [address] [place] [address] [email or web address] PCP - General Internal Medicine 09/18/22 01/30/23 Keren Poon CNP [address] [place] [address], [address]nd [facility] [place] [address] [email or web address] PCP - General Family Medicine 01/31/23 Cash Fernandes MD 10 [place] [address] [email or web address] 08/23/20 Seven Menchaca MD 40 [place] [address] [email or web address] Insurance Assigned Provider 08/04/22 08/03/23 Chavo Jack MD 40 [place] [address] [email or web address] Insurance Assigned Provider 08/03/23 05/04/24 Willi Wells MD 10 [address] [place] [address] Rheumatology 02/04/24 Jose Thakur MD 30 [place] [address] [email or web address] Production Welder Pulmonary Disease 03/17/24 Dana Rucker FNP 15 [facility], 2nd [place] [address] [email or web address] Nurse Practitioner Infectious Diseases 05/21/24 Jonathan Alvarez MD [address] [place] [address], [address] [place] [address] [email or web address] Urology 05/14/23 Anival Borja MD [address] [place] [address], [address] [place] [address] [email or web address] Neurologist Neurology 01/04/23 Lyndsay Reynoso FNP 10 [facility] [address] [place] [address] [email or web address] Nurse Practitioner Pain Medicine 05/27/22 Gutierrez Pittman MD [address] [place] [phone] Membership Counselor Cardiology 05/27/24 documented as of this encounter Additional Source Comments The information contained in this document represents components of the legal health record. It is not the complete legal health record.[facility]
--- OUTSIDE RECORDS SUMMARY | 2024-07-31 10:54 | XMS_ITS | Encounter Summary ---
Author Organization [facility] Address [address] [place] [address] Phone Care Team Providers Care Barrel Washer Name Role Phone Cash Fernandes MD Unavailable [phone] Seven Menchaca MD Unavailable Chavo Jack MD Primary Care Provider Keren Poon [facility] Primary Care Provid er Chavo Jack MD Unavailable Willi Wells MD Unavailable Jose Thakur MD Unavailable Dana Rucker ASPHALT RAKER Unavailable Jonathan Alvarez MD Unavailable [phone] Anival Borja MD Unavailable Lyndsay Reynoso ASPHALT RAKER Unavailable Gutierrez Pittman MD Unavailable [phone] Reason for Referral * MRI/CAT Scan - Closed Specialty Diagnoses / Procedures Referred By Cayden montoya Referred To Contact Radiology Diagnoses Memory loss Procedures MRI Brain Anival Borja MD [address] [place] [address], [address] [place] [address] Email: Referral ID Status Reason Start Date Expiration Date Visits Re quested Visits Authorized [id number] Closed 10/04/2022 1 1 Encounter Details Date Type Department Care Team (Latest Contact Info) Description 10/04/2022 Transcribe Orders Virtual Department [address] [place] [address] Anival Borja MD [address] [place] [address], [address] [place], [place] [phone] [email or web address] Memory loss (Primary Dx) Social History Tobacco [...] st Contact Info) Description 06/06/2024 Procedure Pass [facility], [address] [address] 08/04/2024 2:30 AM EDT Home Care Visit [facility] [address] [place] [address] Orlando Mckeon RN [address] [place] [address] [email or web address] 08/11/2024 2:00 AM EDT Home Care Visit [facility] [address] [place] [address] Orlando Mckeon RN [address] [place] [address] [email or web address] 08/18/2024 1:30 AM EDT Home Care Visit [facility] [address] [place] [address] Orlando Mckeon RN [address] [place] [address] [email or web address] 08/25/2024 1:00 AM EDT Home Care Visit [facility] [address] [place], [place] [phone] Orlando Mckeon RN [address] [place] [address] 09/01/2024 12:30 AM EDT Appointment [facility] [address] [place], [place] [phone] Orlando Mckeon RN [address] [place] [address] 09/18/2024 2:30 PM EDT Office Visit [facility] Infectious Diseases [address] [place] [address] Dana Rucker, ASPHALT RAKER [address] [address] 11/26/2024 3:30 PM EDT Office Visit [facility] [address] [place] [address] Keren Poon, SIMULATION EDUCATOR [address] [address] 12/11/2024 2:00 PM EDT Appointment [facility] [address] [place] [address] Keren Poon, SIMULATION EDUCATOR [address] [address] 01/07/2025 2:30 PM EDT Office Visit [facility] [address] [place] [address] Jose Thakur MD 30 [place] [address] 01/29/2025 3:00 PM EDT Office Visit [address] [place], [place] [address] Keren Poon, SIMULATION EDUCATOR 170 [facility], 2nd [place] [address] [email or web address] 06/03/2025 2:00 PM EST Office Visit [address] [place], [place] [address] Keren Poon, SIMULATION EDUCATOR 170 [facility], 2nd [place] [address] [email or web address] documented as of this encounter Results * [...] documented as of this encounter Care Teams Barrel Washer Relationship Specialty Start Date End Date Chavo Jack MD [address] [place] [address] [email or web address] PCP - General Internal Medicine 09/18/22 01/30/23 Keren Poon CNP [address] [place] [address], 2nd [place] [address] PCP - General Family Medicine 01/31/23 Cash Fernandes MD 10 [place] [address] [email or web address] Gastroenterology 08/23/20 Seven Menchaca MD 40 [place] [address] [email or web address] Insurance Assigned Provider 08/04/22 08/03/23 Chavo Jack MD 40 [place] [address] [email or web address] Insurance Assigned Provider 08/03/23 05/04/24 Willi Wells MD 10 [address] [place] [address] Rheumatology 02/04/24 Jose Thakur MD [address] [place] [address] [email or web address] Solar Sales Assessor Pulmonary Disease 03/17/24 Dana Rucker FNP 15 [facility], 2nd [place] [address] [email or web address] Nurse Practitioner Infectious Diseases 05/21/24 Jonathan Alvarez MD [address] [place] [address], [address] [place] [address] [email or web address] Urology 05/14/23 Anival Borja MD [address] [place] [address], [address] [place] [address] [email or web address] Neurologist Neurology 01/04/23 Lyndsay Reynoso FNP 10 [facility] [address] [place] [address] [email or web address] Nurse Practitioner Pain Medicine 05/27/22 Gutierrez Pittman MD [address] [place] [phone] Grand Jury Deputy Sheriff Cardiology 05/27/24 documented as of this encounter Additional Source Comments The information contained in this document represents components of the legal health record. It is not the complete legal health record.[facility]
--- OUTSIDE RECORDS SUMMARY | 2024-07-31 10:54 | XMS_ITS | Encounter Summary ---
Author Organization [facility] Address [address] [place] [address] Phone Care Team Providers Care Forest Fire Fighter Name Role Phone Cash Fernandes MD Unavailable [phone] Keren Poon PANEL MACHINE OPERATOR Primary Care Provid er Willi Wells MD Unavailable Jose Thakur MD Unavailable Dana Rucker LINE TENDER Unavailable Jonathan Alvarez MD Unavailable [phone] Anival Borja MD Unavailable [phone] Lyndsay Reynoso LINE TENDER Unavailable Gutierrez Pittman MD Unavailable [phone] Reason for Visit * Reason Comments Follow-up Encounter Details Date Type Department Care Team (Late st Contact Info) Description 07/30/2024 3:30 PM EDT Office Visit [facility] [address] [place] [address] [place] [address] Keren Poon, PANEL MACHINE OPERATOR [address] [place] [address], 2nd Floor [place] [address] [email or web address] Need for Tdap vaccination (Primary Dx); C. difficile colitis; Rheumatoid arthritis involving multiple sites, unspecified whether rheumatoid factor present Social History Tobacco Use Types Packs/Day Years [...] Pulse 83 07/30/2024 3:25 PM EDT Temperature - - Respiratory Rate - - Oxygen Saturation 96% 07/30/2024 3:25 PM EDT Inhaled Oxygen Concentration - - Weight 76.7 kg (169 lb) 07/30/2024 3:25 PM EDT Height - - Body Mass Index 27.28 07/10/2024 5:04 PM EDT documented in this encounter Plan of Treatment Upcoming Encounters Date Type Department Care Team (Late st Contact Info) Description 06/06/2024 Procedure Pass [facility] [address] [address] 08/04/2024 2:30 AM EDT Home Care Visit [facility] [address] [place] [phone] Orlando Mckeon RN 168 [place] [address] 08/11/2024 2:00 AM EDT Home Care Visit [facility] 30 [place], [place] [phone] Orlando Mckeon RN 168 [place] [address] 08/18/2024 1:30 AM EDT [facility] [address] [place] [address] Orlando Mckeon RN [address] [place] [address] 08/25/2024 1:00 AM EDT [facility] [address] [place] [phone] Orlando Mckeon RN 168 [place] [address] 09/01/2024 12:30 AM EDT Appointment [facility] [address] [place] [address] Orlando Mckeon RN 168 [place] [address] 09/18/2024 2:30 PM EDT Office Visit [facility] Infectious Diseases [address] [place] [address] Dana Rucker, LINE TENDER 15 [facility], [address] [place] [address] 11/26/2024 3:30 PM EDT Office Visit [facility] [address] [place] [address] [place] [address] Keren Poon, [facility] 170 [facility], [address] [place] [address] 12/11/2024 2:00 PM EDT Appointment [facility] 30 [place] [address] Keren Poon CNP [address] [place] [address] [email or web address] 01/07/2025 2:30 PM EDT Office Visit [facility] [address] [place] [address] Jose Thakur MD [address] [place] [address] 01/29/2025 3:00 PM EDT Office Visit [address] [place] [address] Keren Poon CNP [address] [place] [address] 06/03/2025 2:00 PM EST Office Visit [address] [place] [address] Keren Poon CNP [address] [place] [address] [email or web address] documented as of this encounter Visit Diagnoses Diagnosis Need for Tdap vaccination- Primary Need for prophylactic vaccination with combined mmkcknsqxm-rcrjngd-kbwavocwn (DTP) vaccine C. difficile colitis Rheumatoid arthritis involving multiple sites, unspecified whether rheumatoid factor present documented in this encounter Additional Health Concerns Infection Onset Date Last Indicated Resolved Time C. diff 07/10/2024 07/10/2024 Assessment Noted Time PHQ-9 Depression Total Score: 5 05/09/19 24 6:55 AM EST PHQ-2 Depression Total Score: 2 05/27/19 25 1:55 PM EST documented as of this encounter Care Teams Forest Fire Fighter Relationship Specialty Start Date End Date Keren Poon CNP [address] [place] [address] [email or web address] PCP - General Family Medicine 01/31/23 Cash Fernandes MD [address] [place] [address] [email or web address] Gastroenterology 08/23/20 Willi Wells MD [address] [place] [address] Drive [address]_[place] [address] Rheumatology 02/04/24 Jose Thakur MD [address] [place] [address] [email or web address] Dam Worker Pulmonary Disease 03/17/24 Dana Rucker FNP [address] [place] [address], 2nd [place] [address] [email or web address] Nurse Practitioner Infectious Diseases 05/21/24 Jonathan Alvarez MD [address] [place] [address], [address] [place] [address] [email or web address] Urology 05/14/23 Anival Borja MD [address] [place] [address], [address] [place] [address] [email or web address] Neurologist Neurology 01/04/23 Lyndsay Reynoso FNP [address] [place] [address] [place] [address] [email or web address] Nurse Practitioner Pain Medicine 05/27/22 ToyaGutierrez medina MD 40 [place] [address] Business Planning Analyst Cardiology 05/27/24 documented as of this encounter Additional Source Comments The information contained in this document represents components of the legal health record. It is not the complete legal health record.[facility]
--- OUTSIDE RECORDS SUMMARY | 2024-07-31 10:54 | XMS_ITS | Encounter Summary ---
Author Organization [facility] Address [address] [place] [address] Care Team Providers Care Senior International Tax Manager Name Role Phone Cheryl Calderon MD Primary Care Provider [phone] Encounter Details Date Type Department Care Team (Late st Contact Info) Description 01/27/2019 Orders Only [facility] Hematology/Oncology 1 [facility] [address] [place] [phone] Liliana Calderon, JULI 5 [place] [address] Social History Tobacco Use Types Packs/Day Years [...] 1:19 AM EDT Narrative Resulting Agency Comment [id number] Liliana Calderon NP LAB SAME DAY RESULT Final Result Performing Organization Address [facility] Co de Phone Number [facility] [address] [place] [address] * (ABNORMAL) FERRITIN (01/27/2019 3:23 PM EDT) Ferritin 687(H) 16 - 288 ng/mL [facility] 01/27/2019 3:23 PM EDT 01/28/2019 1:19 AM EDT Narrative Resulting Agency Comment [id number] Liliana Erazo CANCER REGISTRY MANAGER LABORATORY Final Result Performing Organization Address [facility] Co de Phone Number [facility] [address] [place] [address] * (ABNORMAL) IRON PROFILE (IRON/TIBC), SERUM (01/27/2019 3:23 PM EDT) Iron 14(L) 45 - 160 mcg/dL [facility] Iron binding capacity 223(L) 250 - 450 mcg/dL (calc) [facility] Iron saturation 6(L) 16 - 45 % (calc) [facility] 01/27/2019 3:23 PM EDT 01/28/2019 1:19 AM EDT Narrative Resulting Agency Comment [id number] Liliana Calderon CANCER REGISTRY MANAGER LABORATORY Final Result [facility] [address] [place] [address] documented in this encounter Visit Diagnoses Diagnosis Iron deficiency Iron deficiency anemia, unspecified Leukopenia, unspecified type Rheumatoid arthritis involving multiple sites with positive rheumatoid factor (HCC) documented in this encounter Care Teams Senior International Tax Manager Relationship Specialty Start Date End Date Cheryl Calderon MD [facility] [address] [place] [address] PCP - General Internal Medicine 07/17/17 documented as of this encounter
--- OUTSIDE RECORDS SUMMARY | 2024-07-31 10:54 | XMS_ITS | Encounter Summary ---
Author Organization [facility] Address [address] [place] [address] Phone Care Team Providers Care Handkerchief Maker Name Role Phone JessicaMattie oliveirasheryl Mccrackengh [facility] Primary Care Provider Cash Fernandes MD Unavailable [phone] Seven Menchaca MD Unavailable Chavo Jack MD Primary Care Provider Keren Poon [facility] Primary Care Provid er Chavo Jack MD Unavailable Willi Wells MD Unavailable Jose Thakur MD Unavailable Dana Rucker PEDIATRIC RADIOLOGIST Unavailable Jonathan Alvarez MD Unavailable [phone] Anival Borja MD Unavailable [phone] Lyndsay Reynoso PEDIATRIC RADIOLOGIST Unavailable Gutierrez Pittman MD Unavailable [phone] Encounter Details Date Type Department Care Team (Late st Contact Info) Description 02/10/2021 Procedure Pass [facility], Ct Scan - [facility] 30 [place] [address] Social History Tobacco Use Types Packs/Day Years [...] high school, GED, job training, learning the [place] language, technical skills, or developing parenting skills)? [...] st Contact Info) Description 06/06/2024 Procedure Pass [facility], [address] [address] 08/04/2024 2:30 AM EDT Home Care Visit [facility] [address] [place] [phone] Orlando Mckeon RN [address] [place] [address] 08/11/2024 2:00 AM EDT [facility] [address] [place] [phone] Orlando Mckeon RN [address] [place] [address] 08/18/2024 1:30 AM EDT [facility] [address] [place] [phone] Orlando Mckeon RN [address] [place] [address] 08/25/2024 1:00 AM EDT Home Care Visit [facility] [address] [place] [phone] Orlando Mckeon, RENZO [address] [place] [address] 09/01/2024 12:30 AM EDT Appointment [facility] [address] [place] [phone] Orlando Mckeon, RENZO [address] [place] [address] 09/18/2024 2:30 PM EDT Office Visit [facility] Infectious Diseases 22 [place] [address] Dana Rucker, PEDIATRIC RADIOLOGIST [address] [address] 11/26/2024 3:30 PM EDT Office Visit [address] [place], [place] [address] Keren Poon, ORI [address] [place] [address] 12/11/2024 2:00 PM EDT Appointment [address] [address] Keren Poon, ORI [address] [place] [address] 01/07/2025 2:30 PM EDT Office Visit [facility] [address] [place] [address] Jose Thakur MD 30 [place] [address] 01/29/2025 3:00 PM EDT Office Visit [address] [place] [address] Keren Poon, ORI [address] [place] [address] 06/03/2025 2:00 PM EST Office Visit [address] [place] [address] Keren Poon, ORI [address] [place] [address] documented as of this encounter Visit Diagnoses [...] documented as of this encounter Care Teams Handkerchief Maker Relationship Specialty Start Date End Date Ita Pineda CNP [address] [place] [address] [email or web address] PCP - General Internal Medicine 08/19/20 09/17/22 Chavo Jack MD [address] [place] [address] [email or web address] PCP - General Internal Medicine 09/18/22 01/30/23 Keren Poon CNP [address] [place] [address], 2nd [place] [address] [email or web address] PCP - General Family Medicine 01/31/23 Cash Fernandes MD [address] [place] [address] [email or web address] Gastroenterology 08/23/20 Seven Menchaca MD [address] [place] [address] [email or web address] Insurance Assigned Provider 08/04/22 08/03/23 Chavo Jack MD 40 [place] [address] [email or web address] Insurance Assigned Provider 08/03/23 05/04/24 Willi Wells MD [address] [place], [place] [address]R[place]umat[place] [address] Rheumatology 02/04/24 Jose Thakur MD [address] [place] [address] [email or web address] Almond Blancher Pulmonary Disease 03/17/24 Dana Rucker FNP 15 [facility], 2nd [place] [address] [email or web address] Nurse Practitioner Infectious Diseases 05/21/24 Jonathan Alvarez MD [facility], [address] [address] [email or web address] Urology 05/14/23 Anival Borja MD [address] [place] [address], [address] [place] [address] [email or web address] Neurologist Neurology 01/04/23 Lyndsay Reynoso FNP [address] [place] [address] [email or web address] Nurse Practitioner Pain Medicine 05/27/22 Gutierrez Pittman MD 40 [place] [phone] School Custodian Cardiology 05/27/24 documented as of this encounter Additional Source Comments The information contained in this document represents components of the legal health record. It is not the complete legal health record.[facility]
--- OUTSIDE RECORDS SUMMARY | 2024-07-31 10:54 | XMS_ITS | Encounter Summary ---
Author Organization [facility] Address [address] [place] [address] Phone Care Team Providers Care Tunnel Kiln Repairer Name Role Phone Cash Fernandes MD Unavailable [phone] Keren Poon [facility] Primary Care Provid er Willi Wells MD Unavailable Jose Thakur MD Unavailable Dana Rucker ROOF PAINTER Unavailable Jonathan Alvarez MD Unavailable [phone] Anival Borja MD Unavailable Lyndsay Reynoso ROOF PAINTER Unavailable Gutierrez Pittman MD Unavailable [phone] Encounter Details Date Type Department Care Team (Late st Contact Info) Description 07/29/2024 Telephone [facility] Infectious Diseases [address] [place], [place] [phone] Belinda Cho MA [address] [place], [place] [phone] Social History Tobacco Use Types Packs/Day Years [...] Progress Notes * Belinda Cho MA - 07/30/2024 1:58 PM EDT Called [facility] to inform Minda (child welfare caseworker) of patient in the hospital starting 07/10 (started receiving the vancomycin then) and is still on taper per discharge instructions. Medication sent to [facility] for review # [phone]. They will reach out if any additional information is needed. * Dana Rucker FNP - 07/30/2024 9:38 AM EDT Pt was hospitalized starting 07/10 (started receiving the vancomycin then) and is still on taper perdischarge instructions. Please fax to Minda. Thank you. * Belinda Cho MA - 07/29/2024 3:03 PM EDT Minda (child welfare caseworker) called from [facility] question vancomycin start date and taper. She stated [facility]. Informed will need a four day window to stop vancomycin before starting VOWST. Minda stated will take a verbal or can send letter. Call back# [phone] and fax # [phone]. documented in this encounter Plan of Treatment Upcoming Encounters Date Type Department Care Team (Late st Contact Info) Description 06/06/2024 Procedure Pass [facility], [facility] [address] [place] [address] 08/04/2024 2:30 AM EDT Home Care Visit [facility] [address] [place] [phone] Orlando Mckeon RN [address] [place] [address] 08/11/2024 2:00 AM EDT Home Care Visit [facility] [address] [place] [phone] Orlando Mckeon RN [address] [place] [address] 08/18/2024 1:30 AM EDT Home Care Visit [facility] [address] [place] [phone] Orlando Mckeon RN [address] [place] [address] 08/25/2024 1:00 AM EDT Home Care Visit [facility] [address] [place] [phone] Orlando Mckeon RN [address] [place] [address] 09/01/2024 12:30 AM EDT Appointment [facility] [address] [place] [phone] Orlando Mckeon RN [address] [place] [address] 09/18/2024 2:30 PM EDT Office Visit [facility] Infectious Diseases [address] [place] [address] Dana Rucker FNP [address] [address] 11/26/2024 3:30 PM EDT Office Visit [address] [place], [place] [address] Keren Poon CNP [address] [place] [address] 12/11/2024 2:00 PM EDT Appointment [facility] 30 [place] [address] Keren Poon CNP [address] [place] [address] 01/07/2025 2:30 PM EDT Office Visit [facility] [address] [place] [address] Jose Thakur MD 30 [place] [address] 01/29/2025 3:00 PM EDT Office Visit [address] [place] [address] Keren Poon CNP [address] [address] 06/03/2025 2:00 PM EST Office Visit [address] [place] [address] Keren Poon CNP [address] [place] [address] [email or web address] documented as of this encounter Visit Diagnoses Not on filedocumented in this encounter Additional Health Concerns Infection Onset Date Last Indicated Resolved Time C. diff 07/10/2024 07/10/2024 Assessment Noted Time PHQ-9 Depression Total Score: 5 05/09/19 24 6:55 AM EST PHQ-2 Depression Total Score: 2 05/27/19 1:55 PM EST documented as of this encounter Care Teams Tunnel Kiln Repairer Relationship Specialty Start Date End Date Cleve Keren Jailyn, SKI MAKER [address] [place] [address] [email or web address] [employer] PCP - General Family Medicine 01/31/23 Cash Fernandes MD 10 [place] [address] [email or web address] Gastroenterology 08/23/20 Willi Wells MD [address] [place], [place] [address] [address] Rheumatology 02/04/24 Jose Thakur MD [address] [place] [address] Pensions Retirement Plan Specialist Pulmonary Disease 03/17/24 Dana Rucker FNP [address] [address] [email or web address] Nurse Practitioner Infectious Diseases 05/21/24 Jonathan Alvarez MD [address] [place] [address], [address] [place] [address] [email or web address] Urology 05/14/23 Anival Borja MD [address] [place] [address], [address] [place] [address] [email or web address] Neurologist Neurology 01/04/23 Lyndsay Reynoso FNP [address] [place] [address] [place] [address] [email or web address] Nurse Practitioner Pain Medicine 05/27/22 Gutierrez Pittman MD [address] [place] [phone] Feed Management Advisor Cardiology 05/27/24 documented as of this encounter Additional Source Comments The information contained in this document represents components of the legal health record. It is not the complete legal health record.[facility]
--- OUTSIDE RECORDS SUMMARY | 2024-07-31 10:54 | XMS_ITS | Encounter Summary ---
Author Organization [facility] Address [address] [place] [address] Phone Care Team Providers Care Rate Quoting Operator Name Role Phone Cash Fernandes MD Unavailable [phone] Keren Poon [facility] Primary Care Provid er Willi Wells MD Unavailable Jose Thakur MD Unavailable [phone] CLERK Unavailable Jonathan Alvarez MD Unavailable [phone] Anival Borja MD Unavailable Lyndsay Reynoso DEPUTY COURT CLERK Unavailable Gutierrez Pittman MD Unavailable [phone] Reason for Visit * Reason Onset Date Comments [facility] trying to reach Dr Treadwell 07/28/2024 [facility] trying to reach Dr Treadwell Encounter Details Date Type Department Care Team (Late st Contact Info) Description 07/28/2024 Telephone [facility] Infectious Diseases [address] [place], [place] [phone] Adam Treadwell MD [address] [place] [address], 2nd [place] [address] [facility] trying to reach Dr Treadwell ([facility] trying to reach Dr Treadwell) Social History Tobacco Use Types Packs/Day Years [...] as of this encounter Progress Notes * Dana Rucker FNP - 07/28/2024 3:53 PM EDT Discussed pt with Dr. Kwon. She is due for biological for RA. Wondering about timing with FMT. Discussed there is limited research regarding this, but Opal should be able to receive her rituximab aweek or two after FMT. * Niecy Merrill - 07/28/2024 1:[address] Delroy Kwon leaves a VM for Dr Treadwell requesting to speak to him regarding Opal. Her call back # is [phone]. documented in this encounter Plan of Treatment Upcoming Encounters Date Type Department Care Team (Late st Contact Info) Description 06/06/2024 Procedure Pass [facility], [address] [address] 08/04/2024 2:30 AM EDT [facility] 30 [place] [address] Orlando Mckeon, RENZO [address] [place] [address] [email or web address] 08/11/2024 2:00 AM EDT Home [facility] Visit [facility] 30 [place] [address] Orlando Mckeon, RENZO [address] [place] [address] [email or web address] 08/18/2024 1:30 AM EDT Home [facility] Visit [facility] [address] [place] [phone] Orlando Mckeon RN [address] [place] [address] [email or web address] 08/25/2024 1:00 AM EDT Home Care Visit [facility] [address] [place] [phone] Orlando Mckeon, RENZO [address] [place] [address] [email or web address] 09/01/2024 12:30 AM EDT Appointment [facility] [address] [place] [phone] Orlando Mckeon RN [address] [place] [address] [email or web address] 09/18/2024 2:30 PM EDT Office Visit [facility] Infectious Diseases 22 [place] [address] Dana Rucker, DEPUTY COURT CLERK 15 [facility], 2nd [place] [address] 11/26/2024 3:30 PM EDT Office Visit [address] [place], [place] [address] Keren Poon CNP [address] [place] [address] [email or web address] 12/11/2024 2:00 PM EDT Appointment [facility], [facility]- [address] [address] Keren Poon CNP [address] [address] [email or web address] 01/07/2025 2:30 PM EDT Office Visit [facility] Medicine [address] [place] [address] Jose Thakur MD [address] [place] [address] 01/29/2025 3:00 PM EDT Office Visit [address] [place], [place] [address] Keren Poon, ORI [address] [place] [address] [email or web address] 06/03/2025 2:00 PM EST Office Visit [address] [place] [address] Keren Poon, ORI [address] [address] [email or web address] documented as of this encounter Visit Diagnoses Not on filedocumented in this encounter Additional Health Concerns Infection Onset Date Last Indicated Resolved Time C. diff 07/10/2024 07/10/2024 Assessment Noted Time PHQ-9 Depression Total Score: 5 05/09/19 24 6:55 AM EST PHQ-2 Depression Total Score: 2 05/27/19 1:55 PM EST documented as of this encounter Care Teams Rate Quoting Operator Relationship Specialty Start Date End Date Keren Poon CNP [address] [place] [address] PCP - General Family Medicine 01/31/23 Cash Fernandes MD 10 [place] [address] Gastroenterology 08/23/20 Willi Wells MD [address] [place], [place] [address]R[place] [address] Rheumatology 02/04/24 Jose Thakur MD 30 [place] [address] Ceo And Founder Pulmonary Disease 03/17/24 Dana Rucker FNP [address] [address] Nurse Practitioner Infectious Diseases 05/21/24 Jonathan Alvarez MD [address] [place] [address], [address] [place] [address] Urology 05/14/23 Anival Borja MD [address] [place] [address], [address] [place] [address] Neurologist Neurology 01/04/23 Lyndsay Reynoso FNP [address] [place] [address] [email or web address] Nurse Practitioner Pain Medicine 05/27/22 Gutierrez Pittman MD [address] [place] [address] [place]ade Joiner Cardiology 05/27/24 documented as of this encounter Additional Source Comments The information contained in this document represents components of the legal health record. It is not the complete legal health record.[facility]
--- OUTSIDE RECORDS SUMMARY | 2024-07-31 10:55 | XMS_ITS | Encounter Summary ---
Author Organization [facility] Address [address] [place] [address] Care Team Providers Care Branch Office Manager Name Role Phone Cheryl Calderon MD Primary Care Provider [phone] Encounter Details Date Type Department Care Team (Late st Contact Info) Description 07/15/2018 Orders Only [facility]. Rheumatology [address] [place] [phone] Melanie Aguirre MD [address] [place] [address] Social History Tobacco Use Types Packs/Day Years [...] 12:27 AM EDT Narrative Resulting Agency Comment [id number] Melanie Aguirre MD LABORATORY Final Result Performing Organization Address [facility] Co de Phone Number [facility] [address] [place] [address] * (ABNORMAL) ERYTHROCYTE SEDIMENTATION RATE (ESR), WESTERGREN (07/15/2018 4:34 PM EDT) Sedimentation Rate West[place]ren (ESR) 50(H) < OR = 30 mm/h [facility] 07/15/2018 4:34 PM EDT 07/16/2018 12:27 AM EDT Narrative Resulting Agency Comment [id number] us Melanie Aguirre MD LAB SAME DAY RESULT Final Result Performing Organization Address [facility] Co de Phone Number [facility] [address] [place] [address] * (ABNORMAL) COMPREHENSIVE METABOLIC PANEL WITH GFR [...] approximately 13% higher for people identified as -Panamanian. EGFR 95 > OR = 60 mL/min/1 [...] MD LABORATORY Final Result [facility] [address] [place] [address] * (ABNORMAL) CBC INCLUDES DIFFERENTIAL AND PLATELET [...] 12:27 AM EDT Narrative Resulting Agency Comment [id number] Melanie Aguirre MD LAB SAME DAY RESULT Final Result Performing Organization Address City/State/[facility] Co de Phone Number [facility] [address] [place] [address] documented in this encounter Visit Diagnoses Diagnosis Rheumatoid arthritis involving multiple sites with positive rheumatoid factor (HCC) documented in this encounter Care Teams Branch Office Manager Relationship Specialty Start Date End Date Cheryl Calderon MD [facility] Adult Medicine [address] [place] [address] PCP - General Internal Medicine 07/17/17 documented as of this encounter
--- OUTSIDE RECORDS SUMMARY | 2024-07-31 10:55 | XMS_ITS | Encounter Summary ---
Author Organization [facility] Address [address] [place] [address] Care Team Providers Care Head Bellhop Captain Name Role Phone Charly Saxena Primary Care Provider [phone] Chreyl Calderon MD Primary Care Provider [phone] Encounter Details Date Type Department Care Team (Late st Contact Info) Description 02/14/2017 Orders Only [facility] Rheumatology [address] [place] [address] Abel Fierro MD [address] [place] [address] Social History Tobacco Use Types Packs/Day Years [...] 9:13 PM EDT Narrative Resulting Agency Comment [id number] us Abel Fierro MD LAB SAME DAY RESULT Final Resul t Performing Organization Address [facility] Co de Phone Number [facility] [address] [place] [address] * ASPARTATE AMINOTRANSFERASE (AST), SERUM (02/14/2017 2:31 PM EDT) AST (SGOT) 27 10 - 35 U/L [facility] 02/14/2017 2:31 PM EDT 02/14/2017 9:13 PM EDT Narrative Resulting Agency Comment [id number] Abel Fierro MD LAB SAME DAY RESULT Final Resul t Performing Organization Address [facility] de Phone Number [facility] [address] [place] [address] * CREATININE WITH GLOMERULAR FILTRATION RATE, ESTIMATED (EGFR) (02/14/2017 2:31 PM EDT) Creatinine 0.80 0.50 - 0.99 mg/dL [facility] Comment: For patients >49 years of age, the reference limit for Creatinine is approximately 13% higher for people identified as -Djiboutian. GFR 79 > OR = 60 mL/min/1. [...] needs for GFR calculation. Resulting Agency Comment [id number] us Abel Fierro MD LAB SAME DAY RESULT Final Resul t [facility] [address] [place] [address] * (ABNORMAL) CBC INCLUDES DIFFERENTIAL AND PLATELET [...] 9:13 PM EDT Narrative Resulting Agency Comment [id number] us Abel Fierro MD LAB SAME DAY RESULT Final Resul t [facility] [address] [place] [address] documented in this encounter Visit Diagnoses Diagnosis Rheumatoid arthritis involving multiple sites with positive rheumatoid factor (HCC) documented in this encounter Care Teams Head Bellhop Captain Relationship Specialty Start Date End Date Charly Saxena [facility] [address] [place] [address] PCP - General Internal Medicine 05/25/13 07/16/17 Cheryl Calderon MD [facility] Adult Medicine [address] [place] [address] PCP - General Internal Medicine 07/17/17 documented as of this encounter
--- OUTSIDE RECORDS SUMMARY | 2024-07-31 10:55 | XMS_ITS | Encounter Summary ---
Author Organization [facility] Address [address] [place] [address] Phone Care Team Providers Care Sausage Cooker Name Role Phone JessicaMattie oliveirasheryl Mccrackengh [facility] Primary Care Provider Cash Fernandes MD Unavailable [phone] Seven Menchaca MD Unavailable Chavo Jack MD Primary Care Provider Keren Poon [facility] Primary Care Provid er Chavo Jack MD Unavailable Willi Wells MD Unavailable Jose Thakur MD Unavailable [phone] Dana Rucker SAFETY AND SECURITY MANAGER Unavailable Jonathan Alvarez MD Unavailable [phone] Anival Borja MD Unavailable [phone] Lyndsay Reynoso SAFETY AND SECURITY MANAGER Unavailable Gutierrez Pittman MD Unavailable [phone] Encounter Details Date Type Department Care Team (Late st Contact Info) Description 04/10/2021 Procedure Pass [facility] Endoscopy Admitting Dept Virtual Department [address] [place] [address] Social History Tobacco Use Types Packs/Day Years [...] st Contact Info) Description 06/06/2024 Procedure Pass [facility], [facility] [address] [place] [address] 08/04/2024 2:30 AM EDT Home Care Visit [facility] [address] [place] [phone] Orlando Mckeon RN [address] [place] [address] [email or web address] 08/11/2024 2:00 AM EDT Home Care Visit [facility] [address] [place] [phone] Orlando Mckeon RN [address] [place] [address] [email or web address] 08/18/2024 1:30 AM EDT Home Care Visit [facility] [address] [place] [phone] Orlando Mckeon RN [address] [place] [address] [email or web address] 08/25/2024 1:00 AM EDT Home Care Visit [facility] [address] [place] [phone] Orlando Mckeon RN [address] [place] [address] [email or web address] 09/01/2024 12:30 AM EDT Appointment [facility] [address] [place] [phone] Orlando Mckeon RN [address] [place] [address] [email or web address] 09/18/2024 2:30 PM EDT Office Visit [facility] Infectious Diseases [address] [place] [address] Dana Rucker, DIVYA [address] [address] 11/26/2024 3:30 PM EDT Office Visit [address] [place], [place] [address] Keren Poon CNP [address] [place] [address] 12/11/2024 2:00 PM EDT Appointment [address] [address] Keren Poon CNP [address] [place] [address] 01/07/2025 2:30 PM EDT Office Visit [facility], Allergy [facility] Critical [facility] Medicine [address] [place] [address] Jose Thakur MD 30 [place] [address] 01/29/2025 3:00 PM EDT Office Visit [address] [place] [address] Keren Poon CNP [address] [place] [address] 06/03/2025 2:00 PM EST Office Visit [address] [place] [address] Keren Poon CNP [address] [place] [address] documented as of this encounter Visit Diagnoses [...] documented as of this encounter Care Teams Sausage Cooker Relationship Specialty Start Date End Date Ita Pineda CNP [address] [place] [address] [email or web address] PCP - General Internal Medicine 08/19/20 09/17/22 Chavo Jack MD [address] [place] [address] [email or web address] PCP - General Internal Medicine 09/18/22 01/30/23 Keren Poon CNP [address] [place] [address], 2nd [place] [address] [email or web address] PCP - General Family Medicine 01/31/23 Cash Fernandes MD 10 [place] [address] [email or web address] Gastroenterology 08/23/20 Seven Menchaca MD [address] [place] [address] [email or web address] Insurance Assigned Provider 08/04/22 08/03/23 Chavo Jack MD [address] [place] [address] [email or web address] Insurance Assigned Provider 08/03/23 05/04/24 Willi Wells MD [address] [place], [place] [address]Rheumatology [place] [address] Rheumatology 02/04/24 Jose Thakur MD [address] [place] [address] [email or web address] Manager Health Pulmonary Disease 03/17/24 Dana Rucker FNP 15 [facility], 2nd [place] [address] [email or web address] Nurse Practitioner Infectious Diseases 05/21/24 Jonathan Alvarez MD [address] [place] [address], [address] [address] [email or web address] Urology 05/14/23 Anival Borja MD [address] [place] [address], [address] [place] [address] [email or web address] Neurologist Neurology 01/04/23 Lyndsay Reynoso FNP 10 [facility] [address] [place] [address] [email or web address] Nurse Practitioner Pain Medicine 05/27/22 Gutierrez Pittman MD [address] [place] [address] Desk Clerk Cardiology 05/27/24 documented as of this encounter Additional Source Comments The information contained in this document represents components of the legal health record. It is not the complete legal health record.[facility]
--- OUTSIDE RECORDS SUMMARY | 2024-07-31 10:55 | XMS_ITS | Encounter Summary ---
Author Organization [facility] Address [address] [place] [address] Care Team Providers Care Narcotics Agent Name Role Phone Cheryl Calderon MD Primary Care Provider [phone] Encounter Details Date Type Department Care Team (Late st Contact Info) Description 03/14/2018 Orders Only [facility]. Rheumatology [address] [place] [phone] Abel Fierro MD [address] [place] [address] Social History Tobacco Use Types Packs/Day Years [...] 9:19 PM EST Narrative Resulting Agency Comment [id number] us Abel Fierro MD LABORATORY Final Result Performing Organization Address City/[facility] Co de Phone Number [facility] [address] [place] [address] * C-REACTIVE PROTEIN (CRP) - INFLAMMATION (03/14/2018 1:47 PM EST) C reactive protein 1.7 <8.0 mg/L [facility] 03/14/2018 1:47 PM EST 03/14/2018 9:19 PM EST Narrative Resulting Agency Comment [id number] us Abel Fierro MD LABORATORY Final Result Performing Organization Address [facility] Co de Phone Number [facility] [address] [place] [address] * ERYTHROCYTE SEDIMENTATION RATE (ESR), WESTERGREN (03/14/2018 1:47 PM EST) Sedimentation Rate Westegren (ESR) 19 < OR = 30 mm/h [facility] 03/14/2018 1:47 PM EST 03/14/2018 9:19 PM EST Narrative Resulting Agency Comment [id number] Abel Fierro MD LAB SAME DAY RESULT Final Resul t Performing Organization Address City/[facility] Co de Phone Number [facility] [address] [place] [address] * CREATININE WITH GLOMERULAR FILTRATION RATE, ESTIMATED (EGFR) (03/14/2018 1:47 PM EST) Creatinine 0.70 0.50 - 0.99 mg/dL [facility] Comment: For patients >49 years of age, the reference limit for Creatinine is approximately 13% higher for people identified as -St Helenian. GFR 92 > OR = 60 mL/min/1. [...] needs for GFR calculation. Resulting Agency Comment [id number] us Abel Fierro MD LAB SAME DAY RESULT Final Resul t Performing Organization Address City/[facility] Co de Phone Number [facility] [address] [place] [address] * ALANINE AMINOTRANSFERASE (ALT), SERUM (03/14/2018 1:47 PM EST) ALT (SGPT) 18 6 - 29 U/L [facility] 03/14/2018 1:4 7 PM EST 03/14/2018 9:19 PM EST Narrative Resulting Agency Comment [id number] Abel Fierro MD LAB SAME DAY RESULT Final Resul t [facility] [address] [place] [address] * ASPARTATE AMINOTRANSFERASE (AST), SERUM (03/14/2018 1:47 PM EST) AST (SGOT) 23 10 - 35 U/L [facility] 03/14/2018 1:47 PM EST 03/14/2018 9:19 PM EST Narrative Resulting Agency Comment [id number] Abel Fierro MD LAB SAME DAY RESULT Final Resul t Performing Organization Address [facility] de Phone Number [facility] [address] [place] [address] * (ABNORMAL) CBC INCLUDES DIFFERENTIAL AND PLATELET [...] 9:19 PM EST Narrative Resulting Agency Comment [id number] us Abel Fierro MD LAB SAME DAY RESULT Final Resul t Performing Organization Address City/State/[facility] Co de Phone Number [facility] [address] [place] [address] documented in this encounter Visit Diagnoses Diagnosis Rheumatoid arthritis involving multiple sites with positive rheumatoid factor (HCC) documented in this encounter Care Teams Narcotics Agent Relationship Specialty Start Date End Date Cheryl Calderon MD [facility] Adult Medicine [address] [place] [address] PCP - General Internal Medicine 07/17/17 documented as of this encounter
--- OUTSIDE RECORDS SUMMARY | 2024-07-31 10:55 | XMS_ITS | Encounter Summary ---
Author Organization [facility] Address [address] [facility] [address] [place] [address] Phone Care Team Providers Care Distribution Operations Supervisor Name Role Phone Cash Fernandes MD Unavailable [phone] Keren Poon [facility] Primary Care Provid er Willi Wells MD Unavailable Jose Thakur MD Unavailable Dana Rucker SKIVER OPERATOR Unavailable [phone] Jonathan Alvarez MD Unavailable [phone] Anival Borja MD Unavailable Lyndsay Reynoso SKIVER OPERATOR Unavailable Gutierrez Pittman MD Unavailable [phone] Reason for Visit * Reason Onset Date Comments Medication Prior Authorization 07/24/2024 V OWST Encounter Details Date Type Department Care Team (Late st Contact Info) Description 07/24/2024 Telephone [facility] Infectious Diseases [address] [place] [address] Dana Rucker FNP [address] [facility], 2nd [place] [address] Medication Prior Authorization (VOWST) Social History Tobacco [...] all notes, labs and discharge summaries to [facility] [phone] * Dana Rucker FNP - 07/24/2024 3:05 PM EDT Pt needs to have paperwork (which I left on your desk, Belinda) faxed to [facility]. Please include my notes, the discharge summaries from pt's last 3 hospitalizations, the note from Dr. Fernandes from her last hospitalization, and all the C diff lab work and most recent CBC and CMP. Thank you. documented in this encounter Plan of Treatment Upcoming Encounters Date Type Department Care Team (Late st Contact Info) Description 06/06/2024 Procedure Pass [address] [address] 08/04/2024 2:30 AM EDT Home Care Visit [facility] [address] [place] [address] Orlando Mckeon RN [address] [place] [address] 08/11/2024 2:00 AM EDT Home Care Visit [facility] [address] [place] [phone] Orlando Mckeon RN [address] [place] [address] 08/18/2024 1:30 AM EDT Home Care Visit [facility] [address] [place] [phone] Orlnado Mckeon RN [address] [place] [address] 08/25/2024 1:00 AM EDT Home Care Visit [facility] [address] [place] [address] Orlando Mckeon, RENZO [address] [place] [address] [email or web address] 09/01/2024 12:30 AM EDT Appointment [facility] [address] [place] [phone] Orlando Mckeon, RENZO [address] [place] [address] [email or web address] 09/18/2024 2:30 PM EDT Office Visit [facility] Infectious Diseases [address] [place] [address] Dana Rucker, DIVYA [address] [facility], 2nd [place] [address] 11/26/2024 3:30 PM EDT Office Visit [facility] [address] [place] [address] [place] [address] Keren Poon CNP [address] [place] [address] [email or web address] 12/11/2024 2:00 PM EDT Appointment [facility] [address] [place] [address] Keren Poon CNP 170 [facility], [address] [place] [address] [email or web address] 01/07/2025 2:30 PM EDT Office Visit [facility] [address] [place] [address] Jose Thakur MD [address] [place] [address] 01/29/2025 3:00 PM EDT Office Visit [address] [place] [address] Keren Poon, ORI [address] [place] [address] [email or web address] 06/03/2025 2:00 PM EST Office Visit [address] [place] [address] Keren Poon, ORI [address] [place] [address] documented as of this encounter Visit Diagnoses Not on filedocumented in this encounter Additional Health Concerns Infection Onset Date Last Indicated Resolved Time C. diff 07/10/2024 07/10/2024 Assessment Noted Time PHQ-9 Depression Total Score: 5 05/09/19 24 6:55 AM EST PHQ-2 Depression Total Score: 2 01/29/20 25 1:55 PM EST documented as of this encounter Care Teams Distribution Operations Supervisor Relationship Specialty Start Date End Date Keren Poon, ORI [address] [place] [address], 2[address] [place] [address] PCP - General Family Medicine 01/31/23 Cash Fernandes MD [address] [place] [address] Gastroenterology 08/23/20 Willi Wells MD [address] [place] [address] 304_[place] [address] Rheumatology 02/04/24 Jose Thakur MD [address] [place] [address] Standard Machine Stitcher Pulmonary Disease 03/17/24 Dana Rucker FNP [address] [facility], [address] [place] [address] Nurse Practitioner Infectious Diseases 05/21/24 Jonathan Alvarez MD [address] [place] [address], [address] [place] [address] Urology 05/14/23 Anival Borja MD [address] [place] [address], [address] [place] [address] Neurologist Neurology 01/04/23 Lyndsay Reynoso FNP [address] [place] [address] [address] [place] [address] [email or web address] Nurse Practitioner Pain Medicine 05/27/22 Gutierrez Pittman MD [address] [place] [address] [facility] 05/27/24 documented as of this encounter Additional Source Comments The information contained in this document represents components of the legal health record. It is not the complete legal health record.[facility]
--- OUTSIDE RECORDS SUMMARY | 2024-07-31 10:55 | XMS_ITS | Encounter Summary ---
Author Organization [facility] Address [address] [place] [address] Care Team Providers Care Senior Budget Analyst Name Role Phone Charly Saxena Primary Care Provider [phone] Cheryl Calderon MD Primary Care Provider [phone] Encounter Details Date Type Department Care Team (Late st Contact Info) Description 04/18/2017 Orders Only [facility] Rheumatology [address] [place] [address] Abel Fierro MD [address] [place] [address] Social History Tobacco Use Types Packs/Day Years [...] of this encounter Procedures * Due to [place] state law, this [...] in this encounter Results * Due to [place] state law, this organization might not be sharing negative HIV tests. * C-REACTIVE PROTEIN (CRP) - INFLAMMATION (04/18/2017 12:15 PM EST) C reactive protein 1.5 <8.0 mg/L [facility] 04/18/2017 12:1 5 PM EST 04/18/2017 5:02 PM EST Narrative Resulting Agency Comment [id number] us Abel Fierro MD LABORATORY Final Result [facility] [address] [place] [address] * ERYTHROCYTE SEDIMENTATION RATE (ESR), JOSEERGREN (04/18/2017 12:15 PM EST) Sedimentation Rate Westegren (ESR) 9 < OR = 30 mm/h [facility] 04/18/2017 12:1 5 PM EST 04/18/2017 5:02 PM EST Narrative Resulting Agency Comment [id number] us Abel Fierro MD LAB SAME DAY RESULT Final Resul t Performing Organization Address City/[facility]/ZIP Co de Phone Number [facility] [address] [place] [address] * CREATININE WITH GLOMERULAR FILTRATION RATE, ESTIMATED (EGFR) (04/18/2017 12:15 PM EST) Creatinine 0.88 0.50 - 0.99 mg/dL [facility] Comment: For patients >49 years of age, the reference limit for Creatinine is approximately 13% higher for people identified as -Estonian. GFR 70 > OR = 60 mL/min/1. [...] needs for GFR calculation. Resulting Agency Comment [id number] us Abel Fierro MD LAB SAME DAY RESULT Final Resul t Performing Organization Address [facility] Co de Phone Number [facility] [address] [place] [address] * ALANINE AMINOTRANSFERASE (ALT), SERUM (04/18/2017 12:15 PM EST) ALT (SGPT) 19 6 - 29 U/L [facility] 04/18/2017 12:1 5 PM EST 04/18/2017 5:02 PM EST Narrative Resulting Agency Comment [id number] us Abel Fierro MD LAB SAME DAY RESULT Final Resul t Performing Organization Address [facility] Co de Phone Number [facility] [address] [place] [address] * ASPARTATE AMINOTRANSFERASE (AST), SERUM (04/18/2017 12:15 PM EST) AST (SGOT) 19 10 - 35 U/L [facility] 04/18/2017 12:1 5 PM EST 04/18/2017 5:02 PM EST Narrative Resulting Agency Comment [id number] us Abel Fierro MD LAB SAME DAY RESULT Final Resul t Performing Organization Address [facility] de Phone Number [facility] [address] [place] [address] * CBC INCLUDES DIFFERENTIAL AND PLATELET COUNT [...] 5:02 PM EST Narrative Resulting Agency Comment [id number] us Abel Fierro MD LAB SAME DAY RESULT Final Resul t Performing Organization Address City/[facility] Co de Phone Number [facility] [address] [place] [address] documented in this encounter Visit Diagnoses Diagnosis Rheumatoid arthritis involving multiple sites with positive rheumatoid factor (HCC) documented in this encounter Care Teams Senior Budget Analyst Relationship Specialty Start Date End Date Charly Saxena [facility] [address] [place] [address] PCP - General Internal Medicine 05/25/13 07/16/17 Cheryl Calderon MD [facility] Adult Medicine [address] [place] [address] PCP - General Internal Medicine 07/17/17 documented as of this encounter
--- OUTSIDE RECORDS SUMMARY | 2024-07-31 10:55 | XMS_ITS | Encounter Summary ---
Author Organization [facility] Address [address] [place] [address] Phone Care Team Providers Care Plywood Stock Grader Name Role Phone JessicaMattie oliveirasheryl Mccrackengh [facility] Primary Care Provider Cash Fernandes MD Unavailable [phone] Seven Menchaca MD Unavailable Chavo Jack MD Primary Care Provider Keren Poon [facility] Primary Care Provid er Chavo Jack MD Unavailable Willi Wells MD Unavailable Jose Thakur MD Unavailable [phone] Dana Rucker [employer] Unavailable Jonathan Alvarez MD Unavailable [phone] Anival Borja MD Unavailable [phone] Lyndsay Reynoso [employer] Unavailable [phone] Gutierrez Pittman MD Unavailable [phone] Encounter Details Date Type Department Care Team (Late st Contact Info) Description 07/10/2021 Procedure Pass [facility] [address] [place] [address] Social History Tobacco Use Types Packs/Day Years [...] high school, GED, job training, learning the Haitian language, technical skills, or developing parenting skills)? [...] Contact Info) Description 06/06/2024 Procedure Pass [address] [address] 08/04/2024 2:30 AM EDT Home Care Visit [facility] [address] [place] [phone] Orlando Mckeon RN [address] [place] [address] [email or web address] 08/11/2024 2:00 AM EDT Home Care Visit [facility] [address] [place] [phone] Orlando Mckeon RN [address] [place] [address] [email or web address] 08/18/2024 1:30 AM EDT Home Care Visit [facility] [address] [place] [phone] Orlando Mckeon RN [address] [place] [address] [email or web address] 08/25/2024 1:00 AM EDT Home Care Visit [facility] [address] [place] [phone] Orlando Mckeon RN [address] [place] [address] [email or web address] 09/01/2024 12:30 AM EDT Appointment [facility] [address] [place] [phone] Orlando Mckeon RN [address] [place] [address] [email or web address] 09/18/2024 2:30 PM EDT Office Visit [facility] Infectious Diseases [address] [place] [address] Dana Rucker, DIVYA [address] [facility] [address] 11/26/2024 3:30 PM EDT Office Visit [address] [place] [address] Keren Poon CNP [address] [place] [address] 12/11/2024 2:00 PM EDT Appointment [address] [address] Keren Poon, ORI [address] [place] [address] 01/07/2025 2:30 PM EDT Office Visit [facility] [address] [place] [address] Jose Thakur MD [address] [place] [address] 01/29/2025 3:00 PM EDT Office Visit [address] [place] [address] Keren Poon, ORI [address] [place] [address] 06/03/2025 2:00 PM EST Office Visit [address] [place] [address] Keren Poon, ORI [address] [place] [address] documented as of this encounter Visit Diagnoses [...] documented as of this encounter Care Teams Plywood Stock Grader Relationship Specialty Start Date End Date Ita Pineda CNP [address] [place] [address] [email or web address] PCP - General Internal Medicine 08/19/20 09/17/22 Chavo Jack MD [address] [place] [address] PCP - General Internal Medicine 09/18/22 01/30/23 Keren Poon CNP [address] [place] [address], 2nd [place] [address] [email or web address] PCP - General Family Medicine 01/31/23 Cash Fernandes MD [address] [place] [address] [email or web address] Gastroenterology 08/23/20 Seven Menchaca MD [address] [place] [address] [email or web address] Insurance Assigned Provider 08/04/22 08/03/23 Chavo Jack MD [address] [place] [address] [email or web address] Insurance Assigned Provider 08/03/23 05/04/24 Willi Wells MD [address] [place], [place] [address] [address] Rheumatology 02/04/24 Jose Thakur MD [address] [place] [address] [email or web address] Rotor Blade Installer Pulmonary Disease 03/17/24 Dana Rucker FNP [address] [place] [address], 2nd [place] [address] [email or web address] Nurse Practitioner Infectious Diseases 05/21/24 Jonathan Alvarez MD [address] [place] [address], [address] [address] [email or web address] Urology 05/14/23 Anival Borja MD [address] [place] [address], [address] [place] [address] [email or web address] Neurologist Neurology 01/04/23 Lyndsay Reynoso FNP [address] [place] [address] [email or web address] Nurse Practitioner Pain Medicine 05/27/22 Gutierrez Pittman MD [address] [place] [phone] Agency Manager Cardiology 05/27/24 documented as of this encounter Additional Source Comments The information contained in this document represents components of the legal health record. It is not the complete legal health record.[facility]
--- OUTSIDE RECORDS SUMMARY | 2024-07-31 10:55 | XMS_ITS | Encounter Summary ---
Author Organization [facility] Address [address] [place] [address] Care Team Providers Care Tailor Helper Name Role Phone Charly Saxena Primary Care Provider [phone] Cheryl Calderon MD Primary Care Provider [phone] Encounter Details Date Type Department Care Team (Late st Contact Info) Description 07/15/2017 Orders Only [facility] Rheumatology [address] [place] [address] Abel Fierro MD [address] [place] [address] Social History Tobacco Use Types Packs/Day Years [...] approximately 13% higher for people identified as -Zambian. GFR 93 > OR = 60 mL/min/1. [...] needs for GFR calculation. Resulting Agency Comment [id number] us Abel Fierro MD LAB SAME DAY RESULT Final Resul t [facility] [address] [place] [address] * ALANINE AMINOTRANSFERASE (ALT), SERUM (07/15/2017 1:44 PM EDT) ALT (SGPT) 23 6 - 29 U/L [facility] 07/15/2017 1:44 PM EDT 07/15/2017 6:18 PM EDT Narrative Resulting Agency Comment [id number] Abel Fierro MD LAB SAME DAY RESULT Final Resul t Performing Organization Address City/[facility]/ZIP Co de Phone Number [facility] [address] [place] [address] * ASPARTATE AMINOTRANSFERASE (AST), SERUM (07/15/2017 1:44 PM EDT) AST (SGOT) 28 10 - 35 U/L [facility] 07/15/2017 1:44 PM EDT 07/15/2017 6:18 PM EDT Narrative Resulting Agency Comment [id number] us Abel Fierro MD LAB SAME DAY RESULT Final Resul t Performing Organization Address [facility] de Phone Number [facility] [address] [place] [address] * (ABNORMAL) CBC INCLUDES DIFFERENTIAL AND PLATELET [...] 6:18 PM EDT Narrative Resulting Agency Comment [id number] us Abel Fierro MD LAB SAME DAY RESULT Final Resul t [facility] [address] [place] [address] documented in this encounter Visit Diagnoses Diagnosis Rheumatoid arthritis involving multiple sites, unspecified rheumatoid factor presence documented in this encounter Care Teams Tailor Helper Relationship Specialty Start Date End Date Charly Saxena [facility] [address] [place] [address] PCP - General Internal Medicine 05/25/13 07/16/17 Cheryl Calderon MD [facility] Adult Medicine [address] [place] [address] PCP - General Internal Medicine 07/17/17 documented as of this encounter
--- OUTSIDE RECORDS SUMMARY | 2024-07-31 10:55 | XMS_ITS | Encounter Summary ---
Author Organization [facility] Address [address] [place] [address] Care Team Providers Care Drinking Water Technician Name Role Phone Cheryl Calderon MD Primary Care Provider [phone] Encounter Details Date Type Department Care Team (Late st Contact Info) Description 09/30/2018 Orders Only [facility]. Rheumatology [address] [place] [phone] Melanie Aguirre MD [address] [place] [address] Social History Tobacco Use Types Packs/Day Years [...] involving multiple sites with positive rheumatoid factor PSATORA IFA, W/ REFLEX TO TITER/PATTERN/COMPREHENSIVE AB PANEL Routine 09/30/2018 11:38 AM EDT Rheumatoid arthritis involving multiple sites with positive rheumatoid factor HEPATITIS B SURFACE ANTIGEN Routine 07/2018 11:38 AM EDT Rheumatoid arthritis involving multiple sites with positive rheumatoid factor HEPATITIS C AB WITH REFLEX TO RNA PCR, SERUM Routine 09/30/2018 11:38 AM EDT Rheumatoid arthritis involving multiple sites with positive rheumatoid factor SM/RUBBER THREAD SPOOLER ANTIBODY Routine 09/30/2018 11:38 AM EDT Rheumatoid arthritis involving multiple sites with positive rheumatoid factor RUBBER THREAD SPOOLER ANTIBODY Routine 09/30/2018 11:38 AM EDT Rheumatoid [...] 9:04 PM EDT Narrative Resulting Agency Comment [id number] us Melanie Aguirre MD LABORATORY Final Result Performing Organization Address City/[facility] Co de Phone Number [facility] [address] [place] [address] * (ABNORMAL) SJOGRENS SYNDROME ANTIBODIES (SSA AND SSB) (09/30/2018 11:38 AM EDT) Sjogrens syndrome-A extractable nuclear Ab 4.1 POS(A) <1.0 NEG AI [facility] Sjogrens syndrome-B extractable nuclear Ab <1.0 NEG <1.0 NEG AI [facility] 09/30/2018 11:3 8 AM EDT 09/30/2018 9:04 PM EDT Narrative Resulting Agency Comment [id number] us Melanie Aguirre MD LABORATORY Final Result Performing Organization Address [facility] Co de Phone Number [facility] [address] [place] [address] * (ABNORMAL) ERYTHROCYTE SEDIMENTATION RATE (ESR), WESTERGREN (09/30/2018 11:38 AM EDT) Sedimentation Rate [place] (ESR) 45(H) < OR = 30 mm/h [facility] 09/30/2018 11:3 8 AM EDT 09/30/2018 9:04 PM EDT Narrative Resulting Agency Comment [id number] us Melanie Aguirre MD LAB SAME DAY RESULT Final Result Performing Organization Address [facility] Co de Phone Number [facility] [address] [place] [address] * RUBBER THREAD SPOOLER ANTIBODY (09/30/2018 11:38 AM EDT) Ribonucleoprotein extractable nuclear Ab <1.0 NEG <1.0 NEG AI [facility] 09/30/2018 11:3 8 AM EDT 09/30/2018 9:04 PM EDT Narrative Resulting Agency Comment [id number] Melanie Aguirre MD LABORATORY Final Result Performing Organization Address City/[facility]/ZIP Co de Phone Number [facility] [address] [place] [address] * QUANTIFERON-TB GOLD (09/30/2018 11:38 AM EDT) [facility] Quantiferon(R)-TB Gold Plus NEGATIVE NEGATIVE [facility] [...] T-lymphocytes. For additional information, please refer to https://education.Wilshire [employer]on.Light Extraction/faq/KZZ580 (This link is being provided for informational/ educational purposes only.) 09/30/2018 11:3 8 AM EDT 09/30/2018 9:04 PM EDT Narrative Resulting Agency Comment [id number] Melanie Aguirre MD LABORATORY Final Result Performing Organization Address City/[facility]/ZIP Co de Phone Number [facility] [address] [place] [address] * HEPATITIS C AB WITH REFLEX TO [...] a test for HCV RNA (test code 30642) is suggested. For additional information please refer to http://education.IMT [employer])/faq/ODJ42y7 (This link is being provided for informational/ educational purposes only.) 09/30/2018 11:3 8 AM EDT 09/30/2018 9:04 PM EDT Narrative Resulting Agency Comment [id number] us Melanie Aguirre MD LABORATORY Final Result Performing Organization Address [facility] Co de Phone Number [facility] [address] [place] [address] * HEPATITIS B SURFACE ANTIGEN (09/30/2018 11:38 AM EDT) Pathologist [facility] Hepatitis B virus surface Ag NON-REACTI VE NON-REACT MANOLO [facility] 09/30/2018 11:3 8 AM EDT 09/30/2018 9:04 PM EDT Narrative Resulting Agency Comment [id number] us Melanie Aguirre MD LABORATORY Final Result Performing Organization Address [facility] de Phone Number [facility] [address] [place] [address] * (ABNORMAL) C-REACTIVE PROTEIN (CRP) - INFLAMMATION (09/30/2018 11:38 AM EDT) Pathologist [facility] C reactive protein 10.9(H) <8.0 mg/L [facility] 09/30/2018 11:3 8 AM EDT 09/30/2018 9:04 PM EDT Narrative Resulting Agency Comment [id number] us Melanie Aguirre MD LABORATORY Final Result Performing Organization Address [facility] Co de Phone Number [facility] [address] [place] [address] * (ABNORMAL) COMPREHENSIVE METABOLIC PANEL WITH GFR [...] 13% higher for people identified as -Guinean. EGFR 77 > OR = 60 mL/min/1 [...] needs for GFR calculation. Resulting Agency Comment [id number] Melanie Aguirre MD LABORATORY Final Result Performing Organization Address [facility] de Phone Number [facility] [address] [place] [address] * (ABNORMAL) CYCLIC CITRULLINATEDPEPTIDE CCP AB IGG (09/30/2018 11:38 AM EDT) [facility] CCP Ab, IgG 45(H) UNITS [facility] Comment: Reference Range Negative: ?<20 Weak Positive: ? 20-39 Moderate Positive: ?? 40-59 Strong Positive: ? >59 09/30/2018 11:3 8 AM EDT 09/30/2018 9:04 PM EDT Narrative Resulting Agency Comment [id number] Melanie Aguirre MD LABORATORY Final Result Performing Organization Address [facility] de Phone Number [facility] [address] [place] [address] * (ABNORMAL) CBC INCLUDES DIFFERENTIAL AND PLATELET COUNT (09/30/2018 11:38 AM EDT) [facility] WBC 7.4 3.8 - 10.8 Thousand/u [...] 9:04 PM EDT Narrative Resulting Agency Comment [id number] Melanie Aguirre MD LAB SAME DAY RESULT Final Result Performing Organization Address [facility] Co de Phone Number [facility] [address] [place] [address] * SM/RUBBER THREAD SPOOLER ANTIBODY (09/30/2018 11:38 AM EDT) Arevalo extractable nuclear Ab+Ribonucleopr otein extractable nuclear Ab <1.0 NEG <1.0 NEG AI [facility] 09/30/2018 11:3 8 AM EDT 09/30/2018 9:04 PM EDT Narrative Resulting Agency Comment [id number] Melanie Aguirre MD LABORATORY Final Result Performing Organization Address [facility] de Phone Number [facility] [address] [place] [address] * DNA (DS) ANTIBODY (09/30/2018 11:38 AM EDT) Dna (DS) Antibody <1 IU/mL [facility] Comment: ? IU/mL ? Interpretation ? < or = 4 ?Negative ? 5-9 ? Indeterminate ? > or = 10 ?? Positive 09/30/2018 11:3 8 AM EDT 09/30/2018 9:04 PM EDT Narrative Resulting Agency Comment [id number] us Melanie Aguirre MD LABORATORY Final Result Performing Organization Address City/[facility] Co de Phone Number [facility] [address] [place] [address] * PASTORA IFA, W/ REFLEX TO TITER/PATTERN/COMPREHENSIVE [...] for interpretation of all antibodies in the [place], prevalence, and association with diseases at [email or web address]/ faq/SDB889 09/30/2018 11:3 8 AM EDT 09/30/2018 9:04 PM EDT Narrative Resulting Agency Comment [id number] us Melanie Aguirre MD LABORATORY Final Result Performing Organization Address [facility] Co de Phone Number [facility] [address] [place] [address] documented in this encounter Visit Diagnoses Diagnosis Rheumatoid arthritis involving multiple sites with positive rheumatoid factor (HCC) documented in this encounter Care Teams Drinking Water Technician Relationship Specialty Start Date End Date Cheryl Calderon MD [facility] Adult [facility] [address] [place] [address] PCP - General Internal Medicine 07/17/17 documented as of this encounter
--- OUTSIDE RECORDS SUMMARY | 2024-07-31 10:55 | XMS_ITS | Encounter Summary ---
Author Organization [facility] Address [address] [place] [address] Care Team Providers Care Welder Oxyhydrogen Name Role Phone Alberto Pacheco Primary Care Provider [phone] Charly Saxena Primary Care Provider [phone] Cheryl Calderon MD Primary Care Provider [phone] Encounter Details Date Type Department Care Team (Late st Contact Info) Description 01/18/2009 Orders Only [facility] Rheumatology [address] [place] [address] Abel Fierro MD [address] [place] [address] Social History Tobacco Use Types Packs/Day Years [...] encounter Procedures * Due to [place] state law, this organization might not be sharing negative HIV tests. Procedure Name Priority Date/Time Associated Diagnosis Comments C-REACTIVE PROTEIN (CRP), QUANTITATIVE, SERUM INFLAMMATION Routine 01/18/2009 Rheumatoid Arthritis (HCC) Encounter for Long-Term (Current) Use of Other Medications CREATININE WITH GLOMERULAR FILTRATION RATE, ESTIMATED (EGFR) Routine 01/18/2009 Rheumatoid Arthritis ([facility]) Encounter for Long-Term (Current) Use of Other Medications SED RATE ESR Routine 01/18/2009 Rheumatoid Arthritis ([facility]) Encounter for Long-Term (Current) Use of Other Medications CBC 5 PART DIFF Routine 01/18/2009 Rheumatoid Arthritis ([facility]) Encounter for Long-Term (Current) Use of Other Medications ALANINE AMINOTRANSFERASE (ALT), SERUM Routine 01/18/2009 Rheumatoid Arthritis ([facility]) Encounter for Long-Term (Current) Use of Other Medications ASPARTATE AMINOTRANSFERASE (AST), SERUM Routine 01/18/2009 Rheumatoid Arthritis ([facility]) Encounter for Long-Term (Current) Use of Other Medications ALBUMIN Routine 01/18/2009 Rheumatoid Arthritis ([facility]) Encounter for Long-Term (Current) Use of [...] MD LABORATORY Final Result Performing Organization Address City/[facility] Co de Phone Number [facility] [address] [place] [address] * SED RATE ESR (01/18/2009) ESR (ERYTHROCYTE SEDIMENTATION RATE) 5 0 - 30 MM/HR [facility] 01/18/2009 01/18/2009 8:1 8 PM EDT us Abel Fierro MD LAB SAME DAY RESULT Final Resul t Performing Organization Address City/[facility]/ZIP Co de Phone Number [facility] [address] [place] [address] * ALBUMIN (01/18/2009) ALBUMIN 3.8 3.5 - 4.9 G/DL [facility] 01/18/2009 01/18/2009 8:1 8 PM EDT us Abel Fierro MD LAB SAME DAY RESULT Final Resul t Performing Organization Address [facility] de Phone Number [facility] [address] [place] [address] * CREATININE WITH GLOMERULAR FILTRATION RATE, ESTIMATED [...] RESULT Final Resul t Performing Organization Address [facility] de Phone Number [facility] [address] [place] [address] * ALANINE AMINOTRANSFERASE (ALT), SERUM (01/18/2009) ALT (SGPT) 20 6 - 40 U/L [facility] 01/18/2009 01/18/2009 8:1 8 PM EDT us Abel Fierro MD LAB SAME DAY RESULT Final Resul t Performing Organization Address [facility] Co de Phone Number [facility] [address] [place] [address] * ASPARTATE AMINOTRANSFERASE (AST), SERUM (01/18/2009) AST (SGOT) 19 10 - 35 U/L [facility] 01/18/2009 01/18/2009 8:1 8 PM EDT us Abel Fierro MD LAB SAME DAY RESULT Final Resul t [facility] [address] [place] [address] * (ABNORMAL) CBC 5 PART DIFF (01/18/2009) [...] RESULT Final Resul t [facility] [address] [place] [address] documented in this encounter Visit Diagnoses Diagnosis Rheumatoid arthritis(714.0) Rheumatoid arthritis Encounter for long-term (current) use of other medications documented in this encounter Care Teams Welder Oxyhydrogen Relationship Specialty Start Date End Date Alberto Pacheco [address] [place] [address] PCP - General 07/19/08 05/24/13 Charly Saxena [facility] [place] [address] PCP - General Internal Medicine 05/25/13 07/16/17 Cheryl Calderon MD [facility] Adult Medicine [address] [place] [address] PCP - General Internal Medicine 07/17/17 documented as of this encounter
--- OUTSIDE RECORDS SUMMARY | 2024-07-31 10:55 | XMS_ITS | Encounter Summary ---
Author Organization [facility] Address [address] [place] [address] Care Team Providers Care Machine Hoop Maker Helper Name Role Phone Cheryl Calderon MD Primary Care Provider [phone] Reason for Visit * Reason Comments E-prescribing Refill Request Encounter Details Date Type Department Care Team (Late st Contact Info) Description 02/01/[address] [facility] Rheumatology [address] [place] [address] Abel Fierro MD [address] [place] [address] E-prescribing Refill Request Social History Tobacco Use [...] on filedocumented in this encounter Care Teams Machine Hoop Maker Helper Relationship Specialty Start Date End Date Cheryl Calderon MD [facility] [address] [place] [address] PCP - General Internal Medicine 07/17/17 documented as of this encounter
--- OUTSIDE RECORDS SUMMARY | 2024-07-31 10:55 | XMS_ITS | Encounter Summary ---
Author Organization [facility] Address [address] [place] [address] Care Team Providers Care Immunology Specialist Name Role Phone Charly Saxena Primary Care Provider [phone] Cheryl Calderon MD Primary Care Provider [phone] Reason for Visit * Reason Comments E-prescribing Refill Request Encounter Details Date Type Department Care Team ([facility] st Contact Info) Description 03/18/2017 Refill [facility] Rheumatology [address] [place] [address] Abel Fierro MD [address] [place] [address] E-prescribing Refill Request Social History Tobacco Use [...] to send a request for labs to [facility] in [place], [place] Lab request form sent to the [...] none Faxed/E-prescribed medication renewal request(s) for Opal Jaures 62 y.o. female received from pharmacy. Verified [...] Phone 04/18/17 1:30 PM Abel Fierro MD [facility] Rheumatology [phone] 07/15/17 1:00 PM Abel Fierro MD [facility] Rheumatology [phone] Pertinent lab results: No labs suggested for any medication orders signed or pended in this encounter. Refresh if any orders changed. Allergies: Acetaminophen-codeine; Gold; Opioid analgesics; and Sulfa antibiotics BP Readings from Last 1 Encounters: 12/28/16 (!) 149/85 Patient Active Problem List Diagnosis Date Noted ??? Elbow pain 06/03/2012 ??? Rheumatoid arthritis(714.0) ([facility]) 09/29/2010 Followed by rheumatology treated [...] MOUTH EVERY DAY 0 ??? Nystatin (NYSTOP) [id number] UNIT/GM Powder APPLY TO BUTTOCKS THREE TIMES [...] on filedocumented in this encounter Care Teams Immunology Specialist Relationship Specialty Start Date End Date Charly Saxena [facility] [address] [place] [address] PCP - General Internal Medicine 05/25/13 07/16/17 Cheryl Calderon MD [facility] Medicine [address] [place] [address] PCP - General Internal Medicine 07/17/17 documented as of this encounter
--- OUTSIDE RECORDS SUMMARY | 2024-07-31 10:55 | XMS_ITS | Encounter Summary ---
Author Organization [facility] Address [address] [place] [address] Care Team Providers Care Wet Cleaner Machine Name Role Phone Charly Saxena Primary Care Provider [phone] Cheryl Calderon MD Primary Care Provider [phone] Encounter Details Date Type Department Care Team (Late st Contact Info) Description 05/24/2016 Orders Only [facility] Rheumatology [address] [place] [address] Abel Fierro MD [address] [place] [address] Social History Tobacco Use Types Packs/Day Years [...] higher for people identified as -Sudanese. GFR 66 > OR = 60 mL/min/1. [...] needs for GFR calculation. Resulting Agency Comment [id number] us Abel Fierro MD LAB SAME DAY RESULT Final Resul t [facility] [address] [place] [address] * ALANINE AMINOTRANSFERASE (ALT), SERUM (05/24/2016 10:20 AM EST) ALT (SGPT) 27 6 - 29 U/L [facility] 05/24/2016 10:2 0 AM EST 05/24/2016 5:04 PM EST Narrative Resulting Agency Comment [id number] us Abel Fierro MD LAB SAME DAY RESULT Final Resul t Performing Organization Address City/[facility]/ZIP Co de Phone Number [facility] [address] [place] [address] * ASPARTATE AMINOTRANSFERASE (AST), SERUM (05/24/2016 10:20 AM EST) AST (SGOT) 23 10 - 35 U/L [facility] 05/24/2016 10:2 0 AM EST 05/24/2016 5:04 PM EST Narrative Resulting Agency Comment [id number] us Abel Fierro MD LAB SAME DAY RESULT Final Resul t Performing Organization Address [facility] de Phone Number [facility] [address] [place] [address] * (ABNORMAL) CBC INCLUDES DIFFERENTIAL AND PLATELET [...] 5:04 PM EST Narrative Resulting Agency Comment [id number] us Abel Fierro MD LAB SAME DAY RESULT Final Resul t Performing Organization Address City/State/[facility] Co de Phone Number [facility] [address] [place] [address] documented in this encounter Visit Diagnoses Diagnosis Rheumatoid arthritis involving multiple sites with positive rheumatoid factor (HCC) [M05.79] documented in this encounter Care Teams Wet Cleaner Machine Relationship Specialty Start Date End Date Charly Saxena [facility] [address] [place] [address] PCP - General Internal Medicine 05/25/13 07/16/17 Cheryl Calderon MD [facility] Adult Medicine [address] [place] [address] PCP - General Internal Medicine 07/17/17 documented as of this encounter
--- OUTSIDE RECORDS SUMMARY | 2024-07-31 10:55 | XMS_ITS | Encounter Summary ---
Author Organization [facility] Address [address] [place] [address] Care Team Providers Care Novelty Twister Tender Name Role Phone Alberto Pacheco Primary Care Provider [phone] Charly Saxena Primary Care Provider [phone] Cheryl Calderon MD Primary Care Provider [phone] Encounter Details Date Type Department Care Team (Late st Contact Info) Description 03/31/2009 Orders Only [facility] Rheumatology [address] [place] [address] Abel Fierro MD [address] [place] [address] Social History Tobacco Use Types Packs/Day Years [...] Co de Phone Number [facility] [address] [place] [address] * (ABNORMAL) CBC 5 PART DIFF (03/31/2009) [...] RESULT Final Resul t Performing Organization Address City/[facility] Co de Phone Number [facility] [address] [place] [address] * ASPARTATE AMINOTRANSFERASE (AST), SERUM (03/31/2009) AST (SGOT) 20 10 - 35 U/L [facility] 03/31/2009 04/01/2009 12: 36 AM EST Narrative [facility] - 04/01/2009 5:29 AM EST Report Comments: RBC'S PRESENT, CHEMISTRY RESULT(S) MAY BE AFFECTED us Abel Fierro MD LAB SAME DAY RESULT Final Resul t Performing Organization Address City/[facility] Co de Phone Number [facility] [address] [place] [address] * ALANINE AMINOTRANSFERASE (ALT), SERUM (03/31/2009) ALT (SGPT) 21 6 - 40 U/L [facility] 03/31/2009 04/01/2009 12: 36 AM EST Narrative [facility] - 04/01/2009 5:29 AM EST Report Comments: RBC'S PRESENT, CHEMISTRY RESULT(S) MAY BE AFFECTED us Abel Fierro MD LAB SAME DAY RESULT Final Resul t [facility] [address] [place] [address] documented in this encounter Visit Diagnoses Diagnosis Rheumatoid arthritis(714.0) Rheumatoid arthritis documented in this encounter Care Teams Novelty Twister Tender Relationship Specialty Start Date End Date Alberto Pacheco [address] [place] [address] PCP - General 07/19/08 05/24/13 Charly Saxena [facility] [address] [place] [address] PCP - General Internal Medicine 05/25/13 07/16/17 Cheryl Calderon MD [facility] Medicine [address] [place] [address] PCP - General Internal Medicine 07/17/17 documented as of this encounter
--- OUTSIDE RECORDS SUMMARY | 2024-07-31 10:55 | XMS_ITS | Encounter Summary ---
Author Organization [facility] Address [address] [place] [address] Phone Care Team Providers Care Field Marketing Specialist Name Role Phone Cash Fernandes MD Unavailable [phone] Seven Menchaca MD Unavailable [phone] Chavo Jack MD Primary Care Provider Keren Poon [facility] Primary Care Provid er Chavo Jack MD Unavailable Willi Wells MD Unavailable Jose Thakur MD Unavailable Dana Rucker [employer] Unavailable [phone] Jonathan Alvarez MD Unavailable [phone] Anival Borja MD Unavailable [phone] Lyndsay Reynoso TELEVIS[employer] Unavailable Gutierrez Pittman MD Unavailable [phone] Encounter Details Date Type Department Care Team (Late st Contact Info) Description 10/04/2022 Procedure Pass [facility], [address] [place] [address] Social History Tobacco Use Types Packs/Day Years [...] st Contact Info) Description 06/06/2024 Procedure Pass [facility], [address] [address] 08/04/2024 2:30 AM EDT Home Care Visit [facility] [address] [place] [address] Orlando Mckeon RN [address] [place] [address] [email or web address] 08/11/2024 2:00 AM EDT [facility] [address] [place] [phone] Orlando Mckeon RN [address] [place] [address] [email or web address] 08/18/2024 1:30 AM EDT Home Care Visit [facility] [address] [place] [phone] Orlando Mckeon RN [address] [place] [address] [email or web address] 08/25/2024 1:00 AM EDT Home Care Visit [facility] [address] [place] [phone] Orlando Mckeon RN [address] [place] [address] [email or web address] 09/01/2024 12:30 AM EDT [facility]ment [facility] [address] [place] [phone] Orlando Mckeon RN [address] [place] [address] [email or web address] 09/18/2024 2:30 PM EDT Office Visit [facility] Infectious Diseases [address] [place] [address] Dana Rucker, DIVYA [facility], [address] [place] [address] 11/26/2024 3:30 PM EDT Office Visit [address] [place] [address] Keren Poon CNP [address] [place] [address] 12/11/2024 2:00 PM EDT Appointment [facility] [address] [place] [address] Keren Poon, ORI [address] [place] [address] 01/07/2025 2:30 PM EDT Office Visit [facility] [address] [place] [address] Jose Thakur MD 30 [place] [address] 01/29/2025 3:00 PM EDT Office Visit [address] [place], [place] [address] Keren Poon, ORI [address] [place] [address] 06/03/2025 2:00 PM EST Office Visit [address] [place], [place] [address] Keren Poon, ORI [address] [place] [address], [address] [place] [address] [email or web address] documented as of this encounter Visit Diagnoses [...] documented as of this encounter Care Teams Field Marketing Specialist Relationship Specialty Start Date End Date Chavo Jack MD [address] [place] [address] [email or web address] PCP - General Internal Medicine 09/18/22 01/30/23 Keren Poon CNP [address] [place] [address], 2nd [place] [address] [email or web address] PCP - General Family Medicine 01/31/23 Cash Fernandes MD [address] [place] [address] Gastroenterology 08/23/20 Seven Menchaca MD [address] [place] [address] [email or web address] Insurance Assigned Provider 08/04/22 08/03/23 Chavo Jack MD 40 [place] [address] [email or web address] Insurance Assigned Provider 08/03/23 05/04/24 Willi [place] MD [address] Vinayak [address]_[place] [address] Rheumatology 02/04/24 Jose Thakur MD [address] [place] [address] [email or web address] Mobile Application Development Lead Pulmonary Disease 03/17/24 Dana Rucker FNP 15 [facility], 2nd [place] [address] [email or web address] Nurse Practitioner Infectious Diseases 05/21/24 Jonathan Alvarez MD [address] [place] [address], [address] [place] [address] [email or web address] Urology 05/14/23 Anival Borja MD [address] [place] [address], [address] [place] [address] [email or web address] Neurologist Neurology 01/04/23 Lyndsay Reynoso FNP [address] [place] [address] Drive [address] [place] [address] [email or web address] Nurse Practitioner Pain Medicine 05/27/22 Gutierrez Pittman MD [address] [place] [address] Technical Operator Cardiology 05/27/24 documented as of this encounter Additional Source Comments The information contained in this document represents components of the legal health record. It is not the complete legal health record.[facility]
--- OUTSIDE RECORDS SUMMARY | 2024-07-31 10:55 | XMS_ITS | Encounter Summary ---
Author Organization [facility] Address [address] [place] [address] Care Team Providers Care Hims Coder Name Role Phone Cheryl Calderon MD Primary Care Provider [phone] Reason for Visit * Reason Comments E-prescribing Refill Request Encounter Details Date Type Department Care Team (Late st Contact Info) Description 09/19/2017 Refill [facility] Rheumatology [address] [place] [address] Abel Fierro MD [address] [place] [address] E-prescribing Refill Request Social History Tobacco Use [...] 1:00 PM Abel Fierro MD [facility] Rheumatology [phone] Pertinent lab results: Lab Results Component Value [...] pain 06/03/2012 ??? Rheumatoid arthritis(714.0) ([facility]) 09/29/2010 Followed by rheumatology treated with [...] AN EMPTY STOMACH 6 ??? Nystatin (NYSTOP) 707178 UNIT/GM Powder APPLY TO BUTTOCKS THREE TIMES [...] on filedocumented in this encounter Care Teams Hims Coder Relationship Specialty Start Date End Date Cheryl Calderon MD [facility] Adult Medicine [address] [place] [address] PCP - General Internal Medicine 07/17/17 documented as of this encounter
--- OUTSIDE RECORDS SUMMARY | 2024-07-31 10:55 | XMS_ITS | Encounter Summary ---
Author Organization [facility] Address [address] [place] [address] Care Team Providers Care Account Assistant Name Role Phone Charly Saxena Primary Care Provider [phone] Cheryl Calderon MD Primary Care Provider [phone] Encounter Details Date Type Department Care Team (Late st Contact Info) Description 10/15/2016 Orders Only [facility] Rheumatology [address] [place] [address] Abel Fierro MD [address] [place] [address] Social History Tobacco Use Types Packs/Day Years [...] EDT) C reactive protein 0.19 <0.80 mg/dL [facility] Comment: Please be advised that patients taking Carboxypenicillins may exhibit falsely decreased C-Reactive Protein levels due to an analytical interference in this assay. 10/15/2016 12:3 9 PM EDT 10/15/2016 7:34 PM EDT Narrative Resulting Agency Comment [id number] us Abel Fierro MD LABORATORY Final Result [facility] [address] [place] [address] * ERYTHROCYTE SEDIMENTATION RATE (ESR), KUNAL (10/15/2016 12:39 PM EDT) Sedimentation Rate Westegren (ESR) 11 < OR = 30 mm/h [facility] 10/15/2016 12:3 9 PM EDT 10/15/2016 7:34 PM EDT Narrative Resulting Agency Comment [id number] us Abel Fierro MD LAB SAME DAY RESULT Final Resul t Performing Organization Address [facility] de Phone Number [facility] [address] [place] [address] * CREATININE WITH GLOMERULAR FILTRATION RATE, ESTIMATED (EGFR) (10/15/2016 12:39 PM EDT) Creatinine 0.79 0.50 - 0.99 mg/dL [facility] Comment: For patients >49 years of age, the reference limit for Creatinine is approximately 13% higher for people identified as -Malawian. GFR 81 > OR = 60 mL/min/1. [...] needs for GFR calculation. Resulting Agency Comment [id number] us bAel Fierro MD LAB SAME DAY RESULT Final Resul t Performing Organization Address [facility] Co de Phone Number [facility] [address] [place] [address] * ALANINE AMINOTRANSFERASE (ALT), SERUM (10/15/2016 12:39 PM EDT) ALT (SGPT) 27 6 - 29 U/L [facility] 10/15/2016 12:3 9 PM EDT 10/15/2016 7:34 PM EDT Narrative Resulting Agency Comment [id number] us Abel Fierro MD LAB SAME DAY RESULT Final Resul t Performing Organization Address City/[facility] Co de Phone Number [facility] [address] [place] [address] * ASPARTATE AMINOTRANSFERASE (AST), SERUM (10/15/2016 12:39 PM EDT) AST (SGOT) 25 10 - 35 U/L [facility] 10/15/2016 12:3 9 PM EDT 10/15/2016 7:34 PM EDT Narrative Resulting Agency Comment [id number] us Abel Fierro MD LAB SAME DAY RESULT Final Resul t Performing Organization Address [facility] de Phone Number [facility] [address] [place] [address] * (ABNORMAL) CBC INCLUDES DIFFERENTIAL AND PLATELET [...] 7:34 PM EDT Narrative Resulting Agency Comment [id number] us Abel Fierro MD LAB SAME DAY RESULT Final Resul t [facility] [address] [place] [address] documented in this encounter Visit Diagnoses Diagnosis Rheumatoid arthritis involving multiple sites with positive rheumatoid factor (HCC) [M05.79] documented in this encounter Care Teams Account Assistant Relationship Specialty Start Date End Date Charly Saxena [facility] [address] [place] [address] PCP - General Internal Medicine 05/25/13 07/16/17 Cheryl Calderon MD [facility] Medicine [address] [place] [address] PCP - General Internal Medicine 07/17/17 documented as of this encounter
--- OUTSIDE RECORDS SUMMARY | 2024-07-31 10:55 | XMS_ITS | Encounter Summary ---
Author Organization [facility] Address [address] [place] [address] Care Team Providers Care Blind Installer Name Role Phone Charly Saxena Primary Care Provider [phone] Cheryl Calderon MD Primary Care Provider [phone] Encounter Details Date Type Department Care Team (Late st Contact Info) Description 12/28/2016 Orders Only [facility] Rheumatology [address] [place] [address] Abel Fierro MD [address] [place] [address] Social History Tobacco Use Types Packs/Day Years [...] 8:27 PM EDT Narrative Resulting Agency Comment [id number] us Abel Fierro MD LAB SAME DAY RESULT Final Resul t [facility] [address] [place] [address] * ALANINE AMINOTRANSFERASE (ALT), SERUM (12/28/2016 3:13 PM EDT) ALT (SGPT) 29 6 - 29 U/L [facility] 12/28/2016 3:13 PM EDT 12/28/2016 8:27 PM EDT Narrative Resulting Agency Comment [id number] us Abel Fierro MD LAB SAME DAY RESULT Final Resul t [facility] [address] [place] [address] * C-REACTIVE PROTEIN (CRP) - INFLAMMATION (12/28/2016 3:13 PM EDT) C reactive protein 0.24 <0.80 mg/dL [facility] Comment: Please be advised that patients taking Carboxypenicillins may exhibit falsely decreased C-Reactive Protein levels due to an analytical interference in this assay. 12/28/2016 3:13 PM EDT 12/28/2016 8:27 PM EDT Narrative Resulting Agency Comment [id number] Abel Fierro MD LABORATORY Final Result Performing Organization Address [facility] Co de Phone Number [facility] [address] [place] [address] * ERYTHROCYTE SEDIMENTATION RATE (ESR), WESTERGREN (12/28/2016 3:13 PM EDT) Pathologist [facility] Sedimentation Rate Westegren (ESR) 6 < OR = 30 mm/h [facility] 12/28/2016 3:13 PM EDT 12/28/2016 8:27 PM EDT Narrative Resulting Agency Comment [id number] Abel Fierro MD LAB SAME DAY RESULT Final Resul t Performing Organization Address [facility] de Phone Number [facility] [address] [place] [address] * (ABNORMAL) BASIC METABOLIC PANEL WITH (GFR) [...] approximately 13% higher for people identified as -Nepalese. GFR 77 > OR = 60 mL/min/1 [...] needs for GFR calculation. Resulting Agency Comment [id number] us Abel Fierro MD LABORATORY Final Result [facility] [address] [place] [address] * (ABNORMAL) CBC INCLUDES DIFFERENTIAL AND PLATELET [...] 8:27 PM EDT Narrative Resulting Agency Comment [id number] us Abel Fierro MD LAB SAME DAY RESULT Final Resul t Performing Organization Address City/State/[facility] Co de Phone Number [facility] [address] [place] [address] documented in this encounter Visit Diagnoses Diagnosis Rheumatoid arthritis involving multiple sites with positive rheumatoid factor (HCC) documented in this encounter Care Teams Blind Installer Relationship Specialty Start Date End Date Charly Saxena [facility] [address] [place] [address] PCP - General Internal Medicine 05/25/13 07/16/17 Cheryl Calderon MD [facility] [address] [place] [address] PCP - General Internal Medicine 07/17/17 documented as of this encounter
--- OUTSIDE RECORDS SUMMARY | 2024-07-31 10:55 | XMS_ITS | Encounter Summary ---
Author Organization [facility] Address [address] [place] [address] Phone Care Team Providers Care Votator Machine Operator Name Role Phone Patrick Sanchez MD Unavailable [phone] Cheryl Calderon MD Primary Care Provider Keren Mabry MD Unavailable [phone] Louisa Hogan MD Unavailable [phone] Charly Saxena DO Unavailable [phone] Abhinav Muhammad MD Unavailable [phone] Cheryl Giraldo [employer] REAL ESTATE APPRAISER Unavailable Wilfrido Steel MD Unavailable [phone] Sharon Martin PA-C Unavailable Ita Pineda ROTOR ASSEMBLER Primary Care Provider Cash Fernandes MD Unavailable [phone] Seven Menchaca MD Unavailable Chavo Jack MD Primary Care Provider [phone] Keren Poon [facility] Primary Care Provid er Chavo Jack MD Unavailable Willi Wells MD Unavailable Jose Thakur MD Unavailable Dana Rucker SKYLIGHTS ASSEMBLER Unavailable [phone] Jonathan Alvarez MD Unavailable [phone] Anival Borja MD Unavailable IrisjanetbettyLyndsay SKYLIGHTS ASSEMBLER Unavailable [phone] Gutierrez Pittman MD Unavailable [phone] Encounter Details Date Type Department Care Team (Late Contact Info) Description 04/30/2018 Procedure Pass [facility] Periop 6th floor [address] [phone] Social History Tobacco Use Types Packs/Day Years [...] (Late Contact Info) Description 06/06/2024 Procedure Pass [address] [address] 08/04/2024 2:30 AM EDT [facility] [address] [place] [phone] Orlando Mckeon RN [address] [place] [address] [email or web address] 08/11/2024 2:00 AM EDT [facility] [address] [place] [phone] Orlando Mckeon RN [address] [place] [address] 08/18/2024 1:30 AM EDT Home [facility] Visit [facility] [address] [place] [address] Orlando Mckeon RN [address] [place] [address] 08/25/2024 1:00 AM EDT Home Care Visit [facility] [address] [place] [address] Orlando Mckeon RN [address] [place] [address] 09/01/2024 12:30 AM EDT Appointment [facility] [address] [place] [address] Orlando Mckeon RN [address] [place] [address] 09/18/2024 2:30 PM EDT Office Visit [facility] Infectious Diseases [address] [place] [address] Dana Rucker, SKYLIGHTS ASSEMBLER 15 [facility], [address] [place] [address] 11/26/2024 3:30 PM EDT Office Visit [facility] [address] [place] [address] [place] [address] Keren Poon, ORI [address] [address] 12/11/2024 2:00 PM EDT Appointment [facility] [address] [place] [address] Keren Poon, ORI 170 [facility] [address] [place] [address] [email or web address] 01/07/2025 2:30 PM EDT Office Visit [facility] Medicine [address] [place] [address] Jose Thakur MD [address] [place] [address] 01/29/2025 3:00 PM EDT Office Visit [address] [place] [address] Keren Poon, ORI [address] [place] [address], [address] [place] [address] [email or web address] 06/03/2025 2:00 PM EST Office Visit [address] [place] [address] Keren Poon, ORI [address] [place] [address] [email or web address] documented as of this encounter Visit Diagnoses Not on filedocumented in this encounter Additional Health Concerns Infection Onset Date Last Indicated Resolved Time CoV-Exposed Comment:Added per Home Health documentation 09/03/2021 09/05/2021 09/14/2021 1:24 AM E DT CoV-Risk Comment:Per note documentation 03/30/2024 04/10/2024 8:37 AM EST CDiff-Risk 04/10/2024 04/10/2024 04/10/2024 6:0 5 AM EST C. diff 04/10/2024 05/07/2024 06/06/2024 1:21 AM EST CDiff-Risk 04/10/2024 04/10/2024 04/10/2024 7:25 AM EST CoV-Risk 07/10/2024 07/10/2024 07/21/2024 1:21 AM EDT CDiff-Risk 07/10/2024 07/10/2024 07/10/2024 10:2 9 AM EDT C. diff 07/10/2024 07/10/2024 CDiff-Risk 07/10/2024 07/10/2024 07/10/2024 11:0 0 AM EDT documented as of this encounter Care Teams Votator Machine Operator Relationship Specialty Start Date End Date Cheryl Calderon MD [address] [place] [address] PCP - General Family Medicine 04/23/18 08/18/20 Ita Pineda CNP [address] [place] [address] PCP - General Internal Medicine 08/19/20 09/17/22 Chavo Jack MD [address] [place] [address] PCP - General Internal Medicine 09/18/22 01/30/23 Keren Poon CNP [address] [place] [address], 2nd [place] [address] PCP - General Family Medicine 01/31/23 Patrick Sanchez MD [address] [place] [address] Department of Orthopedic [place] [address] [email or web address] Historical LMR Provider 09/10/14 Keren Mabry MD [address] [place] [address] Historical LMR Provider 07/10/18 Louisa Hogan MD [address] [place] [address] [email or web address] Historical LMR Provider 07/10/1807/29 Charly Saxena DO [address] [place] [address] Historical LMR Provider 07/10/18 Abhinav Muhammad MD [address] [place] [address] [email or web address] Historical LMR Provider 07/10/18 08/22/20 Cheryl Giraldo NP [address] [place] [address] Historical LMR Provider 07/10/18 Wilfrido Steel MD 12 [facility] [place] [address] Historical LMR Provider 07/10/18 Sharon Martin PA-C [address] [place] [address] [email or web address] Historical LMR Provider 07/10/18 08/22/20 Cash Fernandes MD [address] [place] [address] [email or web address] Gastroenterology 08/23/20 Seven Menchaca MD [address] [place] [address] Insurance Assigned Provider 08/04/22 08/03/23 Chavo Jack MD [address] [place] [address] Insurance Assigned Provider 08/03/23 05/04/24 Willi Wells MD [address] Vinayak [address]_[place] [address] Rheumatology 02/04/24 Jose Thakur MD [address] [place] [address] Other Sports Coach Or Instructor Pulmonary Disease 03/17/24 Dana Rucker FNP 15 [facility], 2nd [place] [address] [email or web address] Nurse Practitioner Infectious Diseases 05/21/24 Jonathan Alvarez MD [address] [place] [address], [address] [place] [address] [email or web address] Urology 05/14/23 Anival Borja MD [address] [place] [address], [address] [place] [address] Neurologist Neurology 01/04/23 Lyndsay Reynoso FNP [address] [place] [address] [email or web address] Nurse Practitioner Pain Medicine 05/27/22 Gutierrez Pittman MD [address] [place] [phone] Trial Examiner Cardiology 05/27/24 documented as of this encounter Additional Source Comments The information contained in this document represents components of the legal health record. It is not the complete legal health record.[facility]
--- OUTSIDE RECORDS SUMMARY | 2024-07-31 10:55 | XMS_ITS | Encounter Summary ---
Author Organization [facility] Address [address] [place] [address] Phone Care Team Providers Care Secret Service Agent Name Role Phone JessicaMattie oliveirasheryl Mccrackengh [facility] Primary Care Provider Cash Fernandes MD Unavailable [phone] Seven Menchaca MD Unavailable Chavo Jack MD Primary Care Provider Keren Poon [facility] Primary Care Provid er Chavo Jack MD Unavailable Willi Wells MD Unavailable Jose Thakur MD Unavailable [phone] Dana Rucker FORM SETTER SUPERVISOR Unavailable Joanthan Alvarez MD Unavailable [phone] Anival Borja MD Unavailable [phone] Lyndsay Reynoso FORM SETTER SUPERVISOR Unavailable Gutierrez Pittman MD Unavailable + [phone] Encounter Details Date Type Department Care Team (Late st Contact Info) Description 07/14/2021 Ancillary Orders [facility],Outside Imaging [address] [place], [place] [id number] System, Provider Not In, [facility] [address] [address] Social History Tobacco Use Types Packs/Day Years [...] high school, GED, job training, learning the Burundian language, technical skills, or developing parenting skills)? [...] Contact Info) Description 06/06/2024 Procedure Pass [address] [address] 08/04/2024 2:30 AM EDT Home Care Visit [facility] [address] [place] [phone] Orlando Mckeon RN [address] [place] [address] 08/11/2024 2:00 AM EDT [facility] [address] [place] [phone] Orlando Mckeon RN [address] [place] [address] 08/18/2024 1:30 AM EDT [facility] [address] [place] [phone] Orlando Mckeon RN [address] [place] [address] 08/25/2024 1:00 AM EDT [facility] [address] [place] [phone] Orlando Mckeon RN [address] [place] [address] 09/01/2024 12:30 AM EDT Appointment [facility] [address] [place] [phone] Orlando Mckeon RN [address] [place] [address] 09/18/2024 2:30 PM EDT Office Visit [facility] Infectious Diseases [address] [place] [address] Dana Rucker, DIVYA [address] [address] 11/26/2024 3:30 PM EDT Office Visit [address] [place] [address] Keren Poon CNP [address] [place] [address] 12/11/2024 2:00 PM EDT Appointment [address] [address] Keren Poon, ORI [address] [place] [address] 01/07/2025 2:30 PM EDT Office Visit [facility], Allergy and Critical Care Medicine [address] [place] [address] Jose Thakur MD 30 [place] [address] 01/29/2025 3:00 PM EDT Office Visit [address] [place] [address] Keren Poon, ORI [address] [place] [address] 06/03/2025 2:00 PM EST Office Visit [address] [place] [address] Keren Poon, ORI [address] [place] [address] documented as of this encounter Results * [...] documented as of this encounter Care Teams Secret Service Agent Relationship Specialty Start Date End Date Ita Pineda CNP [address] [place] [address] PCP - General Internal Medicine 08/19/20 09/17/22 Chavo Jack MD [address] [place] [address] PCP - General Internal Medicine 09/18/22 01/30/23 Keren Poon CNP [address] [place] [address], 2nd [place] [address] PCP - General Family Medicine 01/31/23 Cash Fernandes MD 10 [place] [address] [email or web address] Gastroenterology 08/23/20 Seven Menchaca MD [address] [place] [address] [email or web address] Insurance Assigned Provider 08/04/22 08/03/23 Chavo Jack MD [address] [place] [address] [email or web address] Insurance Assigned Provider 08/03/23 05/04/24 Willi Wells MD [address] [place] [address] Rheumatology 02/04/24 Jose Thakur MD 30 [place] [address] [email or web address] Paint Roller Covermaker Pulmonary Disease 03/17/24 Dana Rucker FNP 15 [facility], 2nd [place] [address] [email or web address] Nurse Practitioner Infectious Diseases 05/21/24 Jonathan Alvarez MD [address] [place] [address], [address] [place] [address] [email or web address] Urology 05/14/23 Anival Borja MD [address] [place] [address], [address] [place] [address] Neurologist Neurology 01/04/23 Lyndsay Reynoso FNP 10 [facility] [address] [place] [address] [email or web address] Nurse Practitioner Pain Medicine 05/27/22 Gutierrez Pittman MD [address] [place] [phone] Press Tender Short Goods Cardiology 05/27/24 documented as of this encounter Additional Source Comments The information contained in this document represents components of the legal health record. It is not the complete legal health record.[facility]
--- OUTSIDE RECORDS SUMMARY | 2024-07-31 10:56 | XMS_ITS | Encounter Summary ---
Author Organization [facility] Address [address] [place] [address] Phone Care Team Providers Care Turn Down Man Name Role Phone Cash Fernandes MD Unavailable [phone] Keren Poon [facility] Primary Care Provid er Chavo Jack MD Unavailable Willi Wells MD Unavailable Jose Thakur MD Unavailable Dana Rucker CHRONIC MANAGER Unavailable Jonathan Alvarez MD Unavailable [phone] Anival Borja MD Unavailable [phone] Lyndsay Reynoso CHRONIC MANAGER Unavailable [phone] Gutierrez Pittman MD Unavailable [phone] Encounter Details Date Type Department Care Team (Late st Contact Info) Description 03/17/2024 Procedure Pass [facility], Ct Scan - [address] [address] Social History Tobacco Use Types Packs/Day Years [...] Contact Info) Description 06/06/2024 Procedure Pass [facility], [address] [address] 08/04/2024 2:30 AM EDT Home Care Visit [facility] [address] [place] [phone] Orlando Mckeon RN [address] [place] [address] [email or web address] 08/11/2024 2:00 AM EDT [facility] [address] [place] [phone] Orlanod Mckeon RN [address] [place] [address] [email or web address] 08/18/2024 1:30 AM EDT Home Care Visit [facility] [address] [place] [phone] Orlando Mckeon RN [address] [place] [address] [email or web address] 08/25/2024 1:00 AM EDT Home Care Visit [facility] [address] [place] [phone] Orlando Mckeon RN [address] [place] [address] [email or web address] 09/01/2024 12:30 AM EDT Appointment [facility] [address] [place] [phone] Orlando Mckeon RN [address] [place] [address] [email or web address] 09/18/2024 2:30 PM EDT Office Visit [facility] Infectious Diseases [address] [place] [address] Dana Rucker FNP [address] [address] 11/26/2024 3:30 PM EDT Office Visit [address] [place] [address] Keren Poon, ORI [address] [place] [address] 12/11/2024 2:00 PM EDT Appointment [facility] 30 [place] [address] Keren Poon CNP [address] [place] [address] 01/07/2025 2:30 PM EDT Office Visit [facility] Pulmonary, Allergy and Critical Care Medicine [address] [place] [address] Jose Thakur MD 30 [place] [address] 01/29/2025 3:00 PM EDT Office Visit [address] [place] [address] Keren Poon, ORI [address] [place] [address] 06/03/2025 2:00 PM EST Office Visit [address] [place] [address] Keren Poon, ORI [address] [place] [address] [email or web address] documented as of this encounter Visit Diagnoses [...] documented as of this encounter Care Teams Turn Down Man Relationship Specialty Start Date End Date Jerseyroldansotero Keren ORI Glaser [address] [place] [address], 2nd [place] [address] [email or web address] PCP - General Family Medicine 01/31/23 Cash Fernandes MD [address] [place] [address] [email or web address] Gastroenterology 08/23/20 Chavo Jack MD [address] [place] [address] Insurance Assigned Provider 08/03/23 05/04/24 Willi Wells MD [address]_[place] [address] Rheumatology 02/04/24 Jose Thakur MD 30 [place] [address] Special Agent Pulmonary Disease 03/17/24 Dana Rucker FNP 15 [facility], 2nd [place] [address] [email or web address] Nurse Practitioner Infectious Diseases 05/21/24 Jonathan Alvarez MD [address] [place] [address], [address] [place] [address] [email or web address] Urology 05/14/23 Anival Borja MD [address] [place] [address], [address] [place] [address] Neurologist Neurology 01/04/23 Lyndsay Reynoso FNP [address] [place] [address] [email or web address] Nurse Practitioner Pain Medicine 05/27/22 Gutierrez Pittman MD [address] [place] [phone] Equipment Operating Engineer Cardiology 05/27/24 documented as of this encounter Additional Source Comments The information contained in this document represents components of the legal health record. It is not the complete legal health record.[facility]
--- OUTSIDE RECORDS SUMMARY | 2024-07-31 10:56 | XMS_ITS | Encounter Summary ---
Author Organization [facility] Address [address] [place] [address] Care Team Providers Care Mailhouse Operator Name Role Phone Cheryl Calderon MD Primary Care Provider [phone] Encounter Details Date Type Department Care Team (Late st Contact Info) Description 02/16/2019 Orders Only [facility]. Rheumatology [address] [place] [phone] Melanie Aguirre MD 5 [place] [address] Social History Tobacco Use Types Packs/Day Years [...] approximately 13% higher for people identified as -Lithuanian. EGFR 93 > OR = 60 mL/min/1 [...] needs for GFR calculation. Resulting Agency Comment [id number] us Melanie Aguirre MD LABORATORY Final Result Performing Organization Address [facility]/ZIP Co de Phone Number [facility] [address] [place] [address] * (ABNORMAL) C-REACTIVE PROTEIN (CRP) - INFLAMMATION (02/16/2019 2:04 PM EDT) C reactive protein 79.2(H) <8.0 mg/L [facility] 02/16/2019 2:04 PM EDT 02/16/2019 11:45 PM EDT Narrative Resulting Agency Comment [id number] us Melanie Aguirre MD LABORATORY Final Result Performing Organization Address [facility] Co de Phone Number [facility] [address] [place] [address] * (ABNORMAL) CBC INCLUDES DIFFERENTIAL AND PLATELET [...] 11:45 PM EDT Narrative Resulting Agency Comment [id number] us Melanie Aguirre MD LAB SAME DAY RESULT Final Result Performing Organization Address City/[facility] Co de Phone Number [facility] [address] [place] [address] * (ABNORMAL) ERYTHROCYTE SEDIMENTATION RATE (ESR), [place] (02/16/2019 2:04 PM EDT) Sedimentation Rate [place] (ESR) 72(H) < OR = 30 mm/h [facility] 02/16/2019 2:04 PM EDT 02/16/2019 11:45 PM EDT Narrative Resulting Agency Comment [id number] us Melanie Aguirre MD LAB SAME DAY RESULT Final Result Performing Organization Address City/[facility]/ZIP Co de Phone Number [facility] [address] [place] [address] documented in this encounter Visit Diagnoses Diagnosis Rheumatoid arthritis involving multiple sites with positive rheumatoid factor (HCC) documented in this encounter Care Teams Mailhouse Operator Relationship Specialty Start Date End Date Cheryl Calderon MD [facility] Adult Medicine [address] [place] [address] PCP - General Internal Medicine 07/17/17 documented as of this encounter
--- OUTSIDE RECORDS SUMMARY | 2024-07-31 10:56 | XMS_ITS | Encounter Summary ---
Author Organization [facility] Address [address] [place] [address] Care Team Providers Care Soccer Coach Name Role Phone Alberto Pacheco Primary Care Provider [phone] Charly Saxena Primary Care Provider [phone] Cheryl Calderon MD Primary Care Provider [phone] Reason for Visit * Reason Comments E-prescribing Refill Request Encounter Details Date Type Department Care Team ([facility] st Contact Info) Description 10/20/2011 Refill [facility] Rheumatology [address] [place] [address] Abel Fierro MD [address] [place] [address] E-prescribing Refill Request Social History Tobacco Use [...] on filedocumented in this encounter Care Teams Soccer Coach Relationship Specialty Start Date End Date Alberto Pacheco [address] [place] [address] PCP - General 07/19/08 05/24/13 Charly Saxena [facility] [address] [place] [address] PCP - General Internal Medicine 05/25/13 07/16/17 Cheryl Calderon MD [facility] Medicine [address] [place] [address] PCP - General Internal Medicine 07/17/17 documented as of this encounter
--- OUTSIDE RECORDS SUMMARY | 2024-07-31 10:56 | XMS_ITS | Encounter Summary ---
Author Organization [facility] Address [address] [place] [address] Care Team Providers Care Lobby Attendant Name Role Phone Alberto Pacheco Primary Care Provider Unknown Pcp, Non Rmg Primary Care Provider Unava ilable Charly Saxena Primary Care Provider [phone] Charly Saxena Primary Care Provider [phone] Cheryl Calderon MD Primary Care Provider Encounter Details Date Type Department Care Team (Late st Contact Info) Description 02/04/2007 Orders Only [facility] Rheumatology [address] [place] [address] Abel Fierro MD [address] [place] [address] Social History Tobacco Use Types Packs/Day Years [...] this encounter Procedures * Due to [place] Social Shop law, this organization might not be sharing [...] - 35 U/L [facility] (CLIA# [id number]) 02/04/2007 02/04/2007 7:3 1 PM EDT us Abel Fierro MD LAB SAME DAY RESULT Final Resul t [facility] (CLIA# [id number]) [address] [place] [address] * (ABNORMAL) CBC 5 PART DIFF (02/04/2007) WHITE BLOOD COUNT 9.7 3.8 - 10.8 THOUS/UL [facility] (CLIA# [id number]) RBC 5.08 3.80 - 5.10 MIL/UL [facility] (CLIA# [id number]) Hemoglobin 15.4 11.7 - 15.5 G/DL [facility] (CLIA# [id number]) HCT (HEMATOCRIT) 45.3(H) 35.0 - 45.0 % [facility] (CLIA# [id number]) MCV 89.2 80.0 - 100.0 FL [facility] (CLIA# [id number]) MCH 30.4 27.0 - 33.0 PG [facility] (CLIA# [id number]) MCHC 34.1 32.0 - 36.0 G/DL [facility] (CLIA# [id number]) BAND % 0 0 - 5 % [facility] (CLIA# [id number]) NEUTROPHIL % 84(H) 48 - 75 % [facility] (CLIA# [id number]) LYMPHOCYTE % 10(L) 17 - 40 % [facility] (CLIA# [id number]) MONOCYTE % 6 0 - 14 % [facility] (CLIA# [id number]) EOSINOPHIL % 0 0 - 5 % [facility] (CLIA# [id number]) BASOPHIL % 0 0 - 3 % [facility] (CLIA# [id number]) ATYPICAL LYMPHOCYTE % 0 0 - 5 % [facility] (CLIA# [id number]) PLATELETS 392 140 - 400 THOUS/UL [facility] (CLIA# [id number]) BANDS # 0 0 - 750 CELLS/MCL [facility] (CLIA# [id number]) NEUTROPHILS # 8148(H) 1500 - 7800 CELLS/MCL [facility] (CLIA# [id number]) LYMPHOCYTES # 970 850 - 3900 CELLS/MCL [facility] (CLIA# [id number]) MONOCYTES # 582 200 - 950 CELLS/MCL [facility] (CLIA# [id number]) EOSINOPHILS # 0(L) 15 - 550 CELLS/MCL [facility] (CLIA# [id number]) BASOPHILS # 0 0 - 200 CELLS/MCL [facility] (CLIA# [id number]) ATYPICAL LYMPHOCYTES # 0 0 - 200 /UL [facility] (CLIA# [id number]) RDW 14.6 11.0 - 15.0 % [facility] (CLIA# [id number]) MPV 7.6 7.5 - 11.5 FL [facility] (CLIA# [id number]) 02/04/2007 02/04/2007 7:3 1 PM EDT us Abel Fierro MD LAB SAME DAY RESULT Final Resul t [facility] (CLIA# [id number]) [address] [place] [address] documented in this encounter Visit Diagnoses Diagnosis RHEUMATOID ARTHRITIS Rheumatoid arthritis documented in this encounter Care Teams Lobby Attendant Relationship Specialty Start Date End Date Alberto Pacheco [address] [place] [address] PCP - General 07/19/08 05/24/13 Unknown Pcp, Non Rmg PCP - General 06/30/08 07/18/08 Charly Saxena [facility] [address] [place] [address] PCP - General 01/18/06 06/29/08 Charly Saxena [facility] [address] [place] [address] PCP - General Internal Medicine 05/25/13 07/16/17 Cheryl Calderon MD [facility] Medicine [address] [place] [address] PCP - General Internal Medicine 07/17/17 documented as of this encounter
--- OUTSIDE RECORDS SUMMARY | 2024-07-31 10:56 | XMS_ITS | Encounter Summary ---
Author Organization [facility] Address [address] [place] [address] Care Team Providers Care Tank Officer Name Role Phone Alberto Pacheco Primary Care Provider [phone] Charly Saxena Primary Care Provider [phone] Cheryl Calderon MD Primary Care Provider [phone] Encounter Details Date Type Department Care Team (Late st Contact Info) Description 02/20/2011 Orders Only [facility] Rheumatology [address] [place] [address] Abel Fierro MD [address] [place] [address] Social History Tobacco Use Types Packs/Day Years [...] of this encounter Procedures * Due to [place] state law, this organization might not be [...] in this encounter Results * Due to [place] state law, this organization might not be sharing negative HIV tests. * CREATININE WITH GLOMERULAR FILTRATION RATE, ESTIMATED (EGFR) (02/20/2011 11:24 AM EDT) Creatinine 0.80 0.60 - 1.10 mg/dL [facility] Comment:{CREATININE {[id number]) GFR 82 > OR = 60 mL/min/1.7 3m2 [facility] Comment:{eGFR NON-AFR. AMERI CAN {[id number]) GFR () 96 > OR = 60 mL/min/1.7 3m2 [facility] Comment:{eGFR AMERIC AN {[id number]) 02/20/2011 11:2 4 AM EDT 02/20/2011 7:08 [...] needs for GFR calculation. Resulting Agency Comment [id number] us Abel Fierro MD LAB SAME DAY RESULT Final Resul t [facility] [address] [place] [address] * (ABNORMAL) CBC INCLUDES DIFFERENTIAL AND PLATELET COUNT (02/20/2011 11:24 AM EDT) WBC 7.8 3.8 - 10.8 Thousand/ uL [facility] Comment:{WHITE BLOOD CELL CO UNT {[id number]) RBC 5.43(H) 3.80 - 5.10 Million/u L [facility] Comment:{RED BLOOD CELL COUN T {[id number]) Hemoglobin 15.9(H) 11.7 - 15.5 g/dL [facility] Comment:{HEMOGLOBIN {[id number]) Hematocrit 48.3(H) 35.0 - 45.0 % [facility] Comment:{HEMATOCRIT {[id number]) MCV 89.0 80.0 - 100.0 fL [facility] Comment:{MCV {[id number]) MCH 29.4 27.0 - 33.0 pg [facility] Comment:{MCH {[id number]) MCHC 33.0 32.0 - 36.0 g/dL [facility] Comment:{MCHC {[id number]) RDW 14.3 11.0 - 15.0 % [facility] Comment:{RDW {[id number]) PLT 274 140 - 400 Thousand/ uL [facility] Comment:{PLATELET COUNT {[id number]) MPV 8.3 7.5 - 11.5 fL [facility] Comment:{MPV {[id number]) Neutrophils # 4930 1500 - 7800 cells/uL [facility] Comment:{ABSOLUTE NEUTROPHIL S {[id number]) Lymphocytes # 1919 850 - 3900 cells/uL [facility] Comment:{ABSOLUTE LYMPHOCYTE S {[id number]) Monocytes # 780 200 - 950 cells/uL [facility] Comment:{ABSOLUTE MONOCYTES {[id number]) Eosinophils # 125 15 - 500 cells/uL [facility] Comment:{ABSOLUTE EOSINOPHIL S {[id number]) Basophils # 47 0 - 200 cells/uL [facility] Comment:{ABSOLUTE BASOPHILS {[id number]) Neutrophils % 63.2 % [facility] Comment:{NEUTROPHILS {[id number]) Lymphocytes % 24.6 % [facility] Comment:{LYMPHOCYTES {[id number]) Monocytes % 10.0 % [facility] Comment:{MONOCYTES {[id number]) Eosinophils % 1.6 % [facility] Comment:{EOSINOPHILS {[id number]) Basophils % 0.6 % [facility] Comment:{BASOPHILS {[id number]) 02/20/2011 11:2 4 AM EDT 02/20/2011 7:08 PM EDT Narrative Resulting Agency Comment [id number] us Abel Fierro MD LAB SAME DAY RESULT Final Resul t Performing Organization Address City/[facility] Co de Phone Number [facility] [address] [place] [address] * ASPARTATE AMINOTRANSFERASE (AST), SERUM (02/20/2011 11:24 AM EDT) AST (SGOT) 23 10 - 35 U/L [facility] Comment:{AST {[id number]) 02/20/2011 11:2 4 AM EDT 02/20/2011 7:08 PM EDT Narrative Resulting Agency Comment [id number] us bAel Fierro MD LAB SAME DAY RESULT Final Resul t Performing Organization Address [facility] Co de Phone Number [facility] [address] [place] [address] * ALANINE AMINOTRANSFERASE (ALT), SERUM (02/20/2011 11:24 AM EDT) ALT (SGPT) 25 6 - 40 U/L [facility] Comment:{ALT {[id number]) 02/20/2011 11:2 4 AM EDT 02/20/2011 7:08 PM EDT Narrative Resulting Agency Comment [id number] us Abel Fierro MD LAB SAME DAY RESULT Final Resul t Performing Organization Address City/[facility] Co de Phone Number [facility] [address] [place] [address] documented in this encounter Visit Diagnoses Diagnosis Rheumatoid arthritis(714.0) Rheumatoid arthritis documented in this encounter Care Teams Tank Officer Relationship Specialty Start Date End Date Alberto Pacheco [address] [place] [phone] PCP - General 07/19/08 05/24/13 Charly Saxena [facility] [address] [place] [address] PCP - General Internal Medicine 05/25/13 07/16/17 Cheryl Calderon MD [facility] Medicine [address] [place] [address] PCP - General Internal Medicine 07/17/17 documented as of this encounter
--- OUTSIDE RECORDS SUMMARY | 2024-07-31 10:56 | XMS_ITS | Encounter Summary ---
Author Organization [facility] Address [address] [place] [address] Care Team Providers Care Otm Consultant Name Role Phone Alberto Pacheco Primary Care Provider [phone] Unknown Pcp, Non Rmg Primary Care Provider Unava ilable Charly Saxena Primary Care Provider [phone] Charly Saxena Primary Care Provider [phone] Cheryl Calderon MD Primary Care Provider [phone] Encounter Details Date Type Department Care Team (Late st Contact Info) Description 02/03/2007 Orders Only [facility] Rheumatology [address] [place] [address] Nikkie Moss, HEAD STOCK OPERATOR [address] [place], [place] [id number] Social History Tobacco Use Types Packs/Day Years [...] of this encounter Results * Due to [place] state law, this organization might not be sharing negative HIV tests. * ASPARTATE AMINOTRANSFERASE (AST), SERUM (02/04/2007) AST (SGOT) 16 10 - 35 U/L [facility] (CLIA# [id number]) 02/04/2007 02/04/2007 7:3 1 PM EDT us Abel Fierro MD LAB SAME DAY RESULT Final Resul t [facility] (CLIA# [id number]) [address] [place] [address] * (ABNORMAL) CBC 5 PART DIFF (02/04/2007) WHITE BLOOD COUNT 9.7 3.8 - 10.8 THOUS/UL [facility] (CLIA# [id number]) RBC 5.08 3.80 - 5.10 MIL/UL [facility] (CLIA# [id number]) Hemoglobin 15.4 11.7 - 15.5 G/DL [facility] (CLIA# [id number]) HCT (HEMATOCRIT) 45.3(H) 35.0 - 45.0 % [facility] (CLIA# [id number]) MCV 89.2 80.0 - 100.0 FL [facility] (CLIA# [id number]) MCH 30.4 27.0 - 33.0 PG [facility] (CLIA# [id number]) MCHC 34.1 32.0 - 36.0 G/DL [facility] (CLIA# [id number]) BAND % 0 0 - 5 % [facility] (CLIA# [id number]) NEUTROPHIL % 84(H) 48 - 75 % [facility] (CLIA# [id number]) LYMPHOCYTE % 10(L) 17 - 40 % [facility] (CLIA# [id number]) MONOCYTE % 6 0 - 14 % [facility] (CLIA# [id number]) EOSINOPHIL % 0 0 - 5 % [facility] (CLIA# [id number]) BASOPHIL % 0 0 - 3 % [facility] (CLIA# [id number]) ATYPICAL LYMPHOCYTE % 0 0 - 5 % [facility] (CLIA# [id number]) PLATELETS 392 140 - 400 THOUS/UL [facility] (CLIA# [id number]) BANDS # 0 0 - 750 CELLS/MCL [facility] (CLIA# [id number]) NEUTROPHILS # 8148(H) 1500 - 7800 CELLS/MCL [facility] (CLIA# [id number]) LYMPHOCYTES # 970 850 - 3900 CELLS/MCL [facility] (CLIA# [id number]) MONOCYTES # 582 200 - 950 CELLS/MCL [facility] (CLIA# [id number]) EOSINOPHILS # 0(L) 15 - 550 CELLS/MCL [facility] (CLIA# [id number]) BASOPHILS # 0 0 - 200 CELLS/MCL [facility] (CLIA# [id number]) ATYPICAL LYMPHOCYTES # 0 0 - 200 /UL [facility] (CLIA# [id number]) RDW 14.6 11.0 - 15.0 % [facility] (CLIA# [id number]) MPV 7.6 7.5 - 11.5 FL [facility] (CLIA# [id number]) 02/04/2007 02/04/2007 7:3 1 PM EDT us Abel Fierro MD LAB SAME DAY RESULT Final Resul t [facility] (CLIA# [id number]) [address] [place] [address] documented in this encounter Visit Diagnoses Diagnosis RHEUMATOID ARTHRITIS- Primary Rheumatoid arthritis documented in this encounter Care Teams Otm Consultant Relationship Specialty Start Date End Date Alberto Pacheco [address] [place] [address] PCP - General 07/19/08 05/24/13 Unknown Pcp, Non Rmg PCP - General 06/30/08 07/18/08 Charly Saxena [address] [address] PCP - General 01/18/06 06/29/08 Charly Saxena [address] [place] [address] PCP - General Internal Medicine 05/25/13 07/16/17 Cheryl Calderon MD [facility] Adult Medicine [address] [place] [address] PCP - General Internal Medicine 07/17/17 documented as of this encounter
--- OUTSIDE RECORDS SUMMARY | 2024-07-31 10:56 | XMS_ITS | Encounter Summary ---
Author Organization [facility] Address [address] [place] [address] Care Team Providers Care Photo Retoucher Name Role Phone Alberto Pacheco Primary Care Provider [phone] Charly Saxena Primary Care Provider [phone] Cheryl Calderon MD Primary Care Provider [phone] Encounter Details Date Type Department Care Team (Late st Contact Info) Description 08/15/2011 Orders Only [facility] Rheumatology [address] [place] [address] Abel Fierro MD [address] [place] [address] Social History Tobacco Use Types Packs/Day Years [...] this encounter Procedures * Due to [place] [facility] law, this organization might not be sharing negative HIV tests. Procedure Name Priority Date/Time Associated Diagnosis Comments C-REACTIVE PROTEIN (CRP) - INFLAMMATION Routine 08/15/2011 10:22 AM EDT Rheumatoid arthritis (HCC) ERYTHROCYTE SEDIMENTATION RATE (ESR) Routine 08/15/2011 10:22 AM EDT Rheumatoid arthritis ([facility]) CBC INCLUDES DIFFERENTIAL AND PLATELET COUNT Routine 08/15/2011 10:22 AM EDT Rheumatoid arthritis ([facility]) ALANINE AMINOTRANSFERASE (ALT), SERUM Routine 08/15/2011 10:22 AM EDT Rheumatoid arthritis ([facility]) ASPARTATE AMINOTRANSFERASE (AST), SERUM Routine 08/15/2011 10:22 AM EDT Rheumatoid arthritis ([facility]) CREATININE WITH GLOMERULAR FILTRATION RATE, ESTIMATED (EGFR) Routine 08/15/2011 10:22 AM EDT Rheumatoid arthritis ([facility]) documented in this encounter Results * Due to [place] [facility] law, this organization might not be sharing negative HIV tests. * ERYTHROCYTE SEDIMENTATION RATE (ESR)KUNAL (08/15/2011 10:22 AM EDT) Sedimentation Rate Rockegren (ESR) 6 < OR = 30 mm/h [facility] Comment:{SED RATE BY JONATHAN SYED {[id number]) 08/15/2011 10:2 2 AM EDT 08/15/2011 5:01 PM EDT Narrative Resulting Agency Comment [id number] us Abel Fierro MD LAB SAME DAY RESULT Final Resul t Performing Organization Address [facility] Co de Phone Number [facility] [address] [place] [address] * C-REACTIVE PROTEIN (CRP) - INFLAMMATION (08/15/2011 10:22 AM EDT) C reactive protein 0.15 <0.80 mg/dL [facility] Comment: {C-REACTIVE PROTEIN {[id number]) Please be advised that patients taking Carboxypenicillins may exhibit falsely decreased C-Reactive Protein levels due to an analytical interference in this assay. 08/15/2011 10:2 2 AM EDT 08/15/2011 5:01 PM EDT Narrative Resulting Agency Comment [id number] us Abel Fierro MD LABORATORY Final Result Performing Organization Address [facility] Co de Phone Number [facility] [address] [place] [address] * CREATININE WITH GLOMERULAR FILTRATION RATE, ESTIMATED (EGFR) (08/15/2011 10:22 AM EDT) Creatinine 0.87 0.50 - 1.05 mg/dL [facility] Comment: {CREATININE {[id number]) For patients >49 years of age, the reference limit for Creatinine is approximately 13% higher for people identified as -Finnish. GFR 74 > OR = 60 mL/min/1. 73m2 [facility] Comment:{eGFR NON-AFR. AMERI CAN {[id number]) GFR () 86 > OR = 60 mL/min/1. 73m2 [facility] Comment:{eGFR AMERIC AN {[id number]) 08/15/2011 10:2 2 AM EDT 08/15/2011 5:01 [...] needs for GFR calculation. Resulting Agency Comment [id number] us Abel Fierro MD LAB SAME DAY RESULT Final Resul t [facility] [address] [place] [address] * (ABNORMAL) CBC INCLUDES DIFFERENTIAL AND PLATELET COUNT (08/15/2011 10:22 AM EDT) WBC 7.5 3.8 - 10.8 Thousand/ uL [facility] Comment:{WHITE BLOOD CELL CO UNT {[id number]) RBC 5.26(H) 3.80 - 5.10 Million/u L [facility] Comment:{RED BLOOD CELL COUN T {[id number]) Hemoglobin 14.6 11.7 - 15.5 g/dL [facility] Comment:{HEMOGLOBIN {[id number]) Hematocrit 44.5 35.0 - 45.0 % [facility] Comment:{HEMATOCRIT {[id number]) MCV 84.7 80.0 - 100.0 fL [facility] Comment:{MCV {[id number]) MCH 27.8 27.0 - 33.0 pg [facility] Comment:{MCH {[id number]) MCHC 32.8 32.0 - 36.0 g/dL [facility] Comment:{MCHC {[id number]) RDW 14.8 11.0 - 15.0 % [facility] Comment:{RDW {[id number]) PLT 238 140 - 400 Thousand/ uL [facility] Comment:{PLATELET COUNT {[id number]) MPV 8.4 7.5 - 11.5 fL [facility] Comment:{MPV {[id number]) Neutrophils # 4643 1500 - 7800 cells/uL [facility] Comment:{ABSOLUTE NEUTROPHIL S {[id number]) Lymphocytes # 2265 850 - 3900 cells/uL [facility] Comment:{ABSOLUTE LYMPHOCYTE S {[id number]) Monocytes # 360 200 - 950 cells/uL [facility] Comment:{ABSOLUTE MONOCYTES {[id number]) Eosinophils # 203 15 - 500 cells/uL [facility] Comment:{ABSOLUTE EOSINOPHIL S {[id number]) Basophils # 30 0 - 200 cells/uL [facility] Comment:{ABSOLUTE BASOPHILS {[id number]) Neutrophils % 61.9 % [facility] Comment:{NEUTROPHILS {[id number]) Lymphocytes % 30.2 % [facility] Comment:{LYMPHOCYTES {[id number]) Monocytes % 4.8 % [facility] Comment:{MONOCYTES {[id number]) Eosinophils % 2.7 % [facility] Comment:{EOSINOPHILS {[id number]) Basophils % 0.4 % [facility] Comment:{BASOPHILS {[id number]) 08/15/2011 10:2 2 AM EDT 08/15/2011 5:01 PM EDT Narrative Resulting Agency Comment [id number] us Abel Fierro MD LAB SAME DAY RESULT Final Resul t Performing Organization Address City/[facility] Co de Phone Number [facility] [address] [place] [address] * ALANINE AMINOTRANSFERASE (ALT), SERUM (08/15/2011 10:22 AM EDT) ALT (SGPT) 25 6 - 40 U/L [facility] Comment:{ALT {[id number]) 08/15/2011 10:2 2 AM EDT 08/15/2011 5:01 PM EDT Narrative Resulting Agency Comment [id number] us Abel Fierro MD LAB SAME DAY RESULT Final Resul t Performing Organization Address City/[facility]/ZIP Co de Phone Number [facility] [address] [place] [address] * ASPARTATE AMINOTRANSFERASE (AST), SERUM (08/15/2011 10:22 AM EDT) AST (SGOT) 25 10 - 35 U/L [facility] Comment:{AST {[id number]) 08/15/2011 10:2 2 AM EDT 08/15/2011 5:01 PM EDT Narrative Resulting Agency Comment [id number] us Abel Fierro MD LAB SAME DAY RESULT Final Resul t [facility] [address] [place] [address] documented in this encounter Visit Diagnoses Diagnosis Rheumatoid arthritis(714.0) Rheumatoid arthritis documented in this encounter Care Teams Photo Retoucher Relationship Specialty Start Date End Date Alberto Pacheco [address] [place] [address] PCP - General 07/19/08 05/24/13 Charly Saxena [facility] [address] [place] [address] PCP - General Internal Medicine 05/25/13 07/16/17 Cheryl Calderon MD [facility] Medicine [address] [place] [address] PCP - General Internal Medicine 07/17/17 documented as of this encounter
--- OUTSIDE RECORDS SUMMARY | 2024-07-31 10:56 | XMS_ITS | Encounter Summary ---
Author Organization [facility] Address [address] [place] [address] Care Team Providers Care Script Manager Name Role Phone Alberto Pacheco Primary Care Provider [phone] Charly Saxena Primary Care Provider [phone] Cheryl Calderon MD Primary Care Provider [phone] Encounter Details Date Type Department Care Team (Late st Contact Info) Description 12/06/2009 Orders Only [facility] Rheumatology [address] [place] [address] Abel Fierro MD [address] [place] [address] Social History Tobacco Use Types Packs/Day Years [...] RESULT Final Resul t Performing Organization Address City/State/[facility] Co de Phone Number [facility] [address] [place] [address] * (ABNORMAL) CBC 5 PART DIFF (12/06/2009) [...] Performing Organization Address [facility] de Phone Number [facility] [address] [place] [address] * ASPARTATE AMINOTRANSFERASE (AST), SERUM (12/06/2009) AST (SGOT) 18 10 - 35 U/L [facility] 12/06/2009 12/06/2009 9:4 5 PM EDT Abel Fierro MD LAB SAME DAY RESULT Final Resul t Performing Organization Address [facility] de Phone Number [facility] [address] [place] [address] * ALANINE AMINOTRANSFERASE (ALT), SERUM (12/06/2009) ALT (SGPT) 23 6 - 40 U/L [facility] 12/06/2009 12/06/2009 9:4 5 PM EDT Abel Fierro MD LAB SAME DAY RESULT Final Resul t Performing Organization Address [facility] de Phone Number [facility] [address] [place] [address] documented in this encounter Visit Diagnoses Diagnosis Rheumatoid arthritis(714.0) Rheumatoid arthritis documented in this encounter Care Teams Script Manager Relationship Specialty Start Date End Date Alberto Pacheco [address] [place] [address] PCP - General 07/19/08 05/24/13 Charly Saxena [facility] [address] [place] [address] PCP - General Internal Medicine 05/25/13 07/16/17 Cheryl Calderon MD [facility] Medicine [address] [place] [address] PCP - General Internal Medicine 07/17/17 documented as of this encounter
--- OUTSIDE RECORDS SUMMARY | 2024-07-31 10:56 | XMS_ITS | Encounter Summary ---
Author Organization [facility] Address [address] [place] [address] Care Team Providers Care Gray Tender Name Role Phone Alberto Pacheco Primary Care Provider [phone] Charly Saxena Primary Care Provider [phone] Cheryl Calderon MD Primary Care Provider [phone] Encounter Details Date Type Department Care Team (Late st Contact Info) Description 01/23/2010 Orders Only [facility] Rheumatology [address] [place] [address] Abel Fierro MD [address] [place] [address] Social History Tobacco Use Types Packs/Day Years [...] Final Resul t Performing Organization Address City/[facility]/ZIP Co de Phone Number [facility] [address] [place] [address] * (ABNORMAL) C-REACTIVE PROTEIN (CRP), QUANTITATIVE, SERUM INFLAMMATION (01/23/2010) Pathologist [facility] C REACTIVE PROTEIN (CRP) 1.5(H) 0 - 0.7 MG/DL [facility] 01/23/2010 01/23/2010 9:1 6 PM EDT Abel Fierro MD LABORATORY Final Result Performing Organization Address City/[facility]/ZIP Co de Phone Number [facility] [address] [place] [address] * CREATININE WITH GLOMERULAR FILTRATION RATE, ESTIMATED [...] RESULT Final Resul t [facility] [address] [place] [address] * (ABNORMAL) CBC 5 PART DIFF (01/23/2010) [...] Final Resul t Performing Organization Address [facility] de Phone Number [facility] [address] [place] [address] * ASPARTATE AMINOTRANSFERASE (AST), SERUM (01/23/2010) AST (SGOT) 23 10 - 35 U/L [facility] 01/23/2010 01/23/2010 9:1 6 PM EDT us Abel Fierro MD LAB SAME DAY RESULT Final Resul t Performing Organization Address [facility] de Phone Number [facility] [address] [place] [address] * ALANINE AMINOTRANSFERASE (ALT), SERUM (01/23/2010) ALT (SGPT) 26 6 - 40 U/L [facility] 01/23/2010 01/23/2010 9:1 6 PM EDT us Abel Fierro MD LAB SAME DAY RESULT Final Resul t Performing Organization Address [facility] de Phone Number [facility] [address] [place] [address] documented in this encounter Visit Diagnoses Diagnosis Rheumatoid arthritis(714.0)- Primary Rheumatoid arthritis documented in this encounter Care Teams Gray Tender Relationship Specialty Start Date End Date Alberto Pacheco [address] [place] [address] PCP - General 07/19/08 05/24/13 Charly Saxena [facility] [address] [place] [address] PCP - General Internal Medicine 05/25/13 07/16/17 Cheryl Calderon MD [facility] Medicine [address] [place] [address] PCP - General Internal Medicine 07/17/17 documented as of this encounter
--- OUTSIDE RECORDS SUMMARY | 2024-07-31 10:56 | XMS_ITS | Encounter Summary ---
Author Organization [facility] Address [address] [place] [address] Care Team Providers Care Calender Runner Name Role Phone Alberto Pacheco Primary Care Provider [phone] Charly Saxena Primary Care Provider [phone] Cheryl Calderon MD Primary Care Provider [phone] Encounter Details Date Type Department Care Team (Late st Contact Info) Description 10/18/2011 Orders Only [facility] Rheumatology [address] [place] [address] Abel Fierro MD [address] [place] [address] Social History Tobacco Use Types Packs/Day Years [...] - 1.05 mg/dL [facility] Comment: {CREATININE {[id number]) For patients >49 years of age, the reference limit for Creatinine is approximately 13% higher for people identified as -Montenegrin. GFR 80 > OR = 60 mL/min/1. 73m2 [facility] Comment:{eGFR NON-AFR. AMERI CAN {[id number]) GFR () 93 > OR = 60 mL/min/1. 73m2 [facility] Comment:{eGFR AMERIC AN {[id number]) 10/18/2011 4:28 PM EDT 10/18/2011 8:48 PM [...] needs for GFR calculation. Resulting Agency Comment [id number] us Abel Fierro MD LAB SAME DAY RESULT Final Resul t [facility] [address] [place] [address] * ALANINE AMINOTRANSFERASE (ALT), SERUM (10/18/2011 4:28 PM EDT) ALT (SGPT) 24 6 - 40 U/L [facility] Comment:{ALT {[id number]) 10/18/2011 4:28 PM EDT 10/18/2011 8:48 PM EDT Narrative Resulting Agency Comment [id number] Abel Fierro MD LAB SAME DAY RESULT Final Resul t Performing Organization Address City/[facility] Co de Phone Number [facility] [address] [place] [address] * ASPARTATE AMINOTRANSFERASE (AST), SERUM (10/18/2011 4:28 PM EDT) Pathologist [facility] AST (SGOT) 27 10 - 35 U/L [facility] Comment:{AST {[id number]) 10/18/2011 4:28 PM EDT 10/18/2011 8:48 PM EDT Narrative Resulting Agency Comment [id number] Abel Fierro MD LAB SAME DAY RESULT Final Resul t Performing Organization Address [facility] de Phone Number [facility] [address] [place] [address] * (ABNORMAL) CBC INCLUDES DIFFERENTIAL AND PLATELET COUNT (10/18/2011 4:28 PM EDT) Pathologist [facility] WBC 7.2 3.8 - 10.8 Thousand/ uL [facility] Comment:{WHITE BLOOD CELL CO UNT {[id number]) RBC 5.34(H) 3.80 - 5.10 Million/u L [facility] Comment:{RED BLOOD CELL COUN T {[id number]) Hemoglobin 15.0 11.7 - 15.5 g/dL [facility] Comment:{HEMOGLOBIN {[id number]) Hematocrit 46.3(H) 35.0 - 45.0 % [facility] Comment:{HEMATOCRIT {[id number]) MCV 86.6 80.0 - 100.0 fL [facility] Comment:{MCV {[id number]) MCH 28.1 27.0 - 33.0 pg [facility] Comment:{MCH {[id number]) MCHC 32.5 32.0 - 36.0 g/dL [facility] Comment:{MCHC {[id number]) RDW 14.4 11.0 - 15.0 % [facility] Comment:{RDW {[id number]) PLT 254 140 - 400 Thousand/ uL [facility] Comment:{PLATELET COUNT {[id number]) MPV 8.4 7.5 - 11.5 fL [facility] Comment:{MPV {[id number]) Neutrophils # 3226 1500 - 7800 cells/uL [facility] Comment:{ABSOLUTE NEUTROPHIL S {[id number]) Lymphocytes # 2988 850 - 3900 cells/uL [facility] Comment:{ABSOLUTE LYMPHOCYTE S {[id number]) Monocytes # 893 200 - 950 cells/uL [facility] Comment:{ABSOLUTE MONOCYTES {[id number]) Eosinophils # 65 15 - 500 cells/uL [facility] Comment:{ABSOLUTE EOSINOPHIL S {[id number]) Basophils # 29 0 - 200 cells/uL [facility] Comment:{ABSOLUTE BASOPHILS {[id number]) Neutrophils % 44.8 % [facility] Comment:{NEUTROPHILS {[id number]) Lymphocytes % 41.5 % [facility] Comment:{LYMPHOCYTES {[id number]) Monocytes % 12.4 % [facility] Comment:{MONOCYTES {[id number]) Eosinophils % 0.9 % [facility] Comment:{EOSINOPHILS {[id number]) Basophils % 0.4 % [facility] Comment:{BASOPHILS {[id number]) 10/18/2011 4:28 PM EDT 10/18/2011 8:48 PM EDT Narrative Resulting Agency Comment [id number] us Abel Fierro MD LAB SAME DAY RESULT Final Resul t [facility] [address] [place] [address] documented in this encounter Visit Diagnoses Diagnosis Rheumatoid arthritis(714.0) Rheumatoid arthritis documented in this encounter Care Teams Calender Runner Relationship Specialty Start Date End Date Alberto Pacheco [address] [place] [address] PCP - General 07/19/08 05/24/13 Charly Saxena [facility] [address] [place] [address] PCP - General Internal Medicine 05/25/13 07/16/17 Cheryl Calderon MD [facility] Adult Medicine [address] [place] [address] PCP - General Internal Medicine 07/17/17 documented as of this encounter
--- OUTSIDE RECORDS SUMMARY | 2024-07-31 10:56 | XMS_ITS | Encounter Summary ---
Author Organization [facility] Address [address] [place] [address] Phone Care Team Providers Care Regional Intermodal Truck Driver Name Role Phone Cash Fernandes MD Unavailable [phone] Keren Poon [facility] Primary Care Provid er Willi Wells MD Unavailable Jose Thakur MD Unavailable [phone] Dana Rucker PATIENT SITTER Unavailable Jonathan Alvarez MD Unavailable [phone] Anival Borja MD Unavailable Lyndsay Reynoso PATIENT SITTER Unavailable Gutierrez Pittman MD Unavailable [phone] Encounter Details Date Type Department Care Team (Late st Contact Info) Description 07/10/2024 Procedure Pass [facility], Ct Scan - [address] [address] Social History Tobacco Use Types Packs/Day Years [...] Contact Info) Description 06/06/2024 Procedure Pass [address] [address] 08/04/2024 2:30 AM EDT [facility] [address] [place] [address] Orlando Mckeon RN [address] [place] [address] 08/11/2024 2:00 AM EDT [facility] [address] [place] [address] Orlando Mckeon RN [address] [place] [address] 08/18/2024 1:30 AM EDT [facility] [address] [place] [address] Orlando Mckeon RN [address] [place] [address] 08/25/2024 1:00 AM EDT [facility] [address] [place] [address] Orlando Mckeon RN [address] [place] [address] 09/01/2024 12:30 AM EDT Appointment [facility] [address] [place] [address] Orlando Mckeon RN [address] [place] [address] 09/18/2024 2:30 PM EDT Office Visit [facility] Infectious Diseases [address] [place] [address] Dana Rucker, DIVYA 15 [facility] 2nd [place] [address] 11/26/2024 3:30 PM EDT Office Visit [address] [place] [address] Keren Poon, ORI [address] [place] [address] 12/11/2024 2:00 PM EDT Appointment [facility] [address] [place] [address] Keren Poon, ORI [address] [address] 01/07/2025 2:30 PM EDT Office Visit [facility] [address] [place] [address] Jose Thakur MD 30 [place] [address] 01/29/2025 3:00 PM EDT Office Visit [address] [place] [address] Keren Poon, ORI [address] [place] [address] [place] [address] 06/03/2025 2:00 PM EST Office Visit [facility] [address] [place] [address] [place] [address] Keren Poon Jailyn, ORI 170 [facility], [address] [place] [address] [place] [address] [email or web address] documented as of this encounter Visit Diagnoses [...] documented as of this encounter Care Teams Regional Intermodal Truck Driver Relationship Specialty Start Date End Date Keren Poon Jailyn, ORI [address] [place] [address], [address] [place] [address] [place]AGHAN [place] [address] PCP - General Family Medicine 01/31/23 Cash Fernandes MD [address] [place] [address] Gastroenterology 08/23/20 Willi Wells MD [address] [place] [address]_[place] [address] Rheumatology 02/04/24 Jose Thakur MD [address] [place] [address] Color Maker Pulmonary Disease 03/17/24 Dana Rucker FNP 15 [facility], 2nd [place] [address] [email or web address] Nurse Practitioner Infectious Diseases 05/21/24 Jonathan Alvarez MD [address] [place] [address], [address] [place] [address] [email or web address] Urology 05/14/23 Anival Borja MD [address] [place] [address], [address] [place] [address] Neurologist Neurology 01/04/23 Lyndsay Reynoso FNP 10 [facility] [address] [place] [address] [email or web address] Nurse Practitioner Pain Medicine 05/27/22 Gutierrez Pittman MD [address] [place] [phone] [employer] [facility] Cardiology 05/27/24 documented as of this encounter Additional Source Comments The information contained in this document represents components of the legal health record. It is not the complete legal health record.[facility]
--- OUTSIDE RECORDS SUMMARY | 2024-07-31 10:56 | XMS_ITS | Encounter Summary ---
Author Organization [facility] Address [address] [place] [address] Care Team Providers Care Senior Mobile Application Developer Name Role Phone Alberto Pacheco Primary Care Provider [phone] Charly Saxena Primary Care Provider [phone] Cheryl Calderon MD Primary Care Provider [phone] Reason for Visit * Reason Comments E-prescribing Refill Request Encounter Details Date Type Department Care Team (Late st Contact Info) Description 08/21/2010 Refill [facility] Rheumatology [address] [place] [address] Abel Fierro MD [address] [place] [address] E-prescribing Refill Request Social History Tobacco Use [...] on filedocumented in this encounter Care Teams Senior Mobile Application Developer Relationship Specialty Start Date End Date Alberto Pacheco [address] [place] [address] PCP - General 07/19/08 05/24/13 Charly Saxena [facility] [address] [place] [address] PCP - General Internal Medicine 05/25/13 07/16/17 Cheryl Calderon MD [facility] Medicine [address] [place] [address] PCP - General Internal Medicine 07/17/17 documented as of this encounter
--- OUTSIDE RECORDS SUMMARY | 2024-07-31 10:56 | XMS_ITS | Encounter Summary ---
Author Organization [facility] Address [address] [place] [address] Care Team Providers Care Product Development Specialist Name Role Phone Alberto Pacheco Primary Care Provider [phone] Charly Saxena Primary Care Provider [phone] Cheryl Calderon MD Primary Care Provider [phone] Encounter Details Date Type Department Care Team (Late st Contact Info) Description 04/14/2010 Orders Only [facility] Rheumatology [address] [place] [address] Deepti Estes GNP Social History Tobacco Use [...] precise needs for GFR calculation. Deepti Estes [facility] LAB SAME DAY RESULT Elana l Result Performing Organization Address [facility] de Phone Number [facility] [address] [place] [address] * ALANINE AMINOTRANSFERASE (ALT), SERUM (04/14/2010) ALT (SGPT) 28 6 - 40 U/L [facility] 04/14/2010 04/14/2010 11: 35 PM EST Deepti Estes [facility] LAB SAME DAY RESULT Elana l Result Performing Organization Address [facility] Co de Phone Number [facility] [address] [place] [address] * ASPARTATE AMINOTRANSFERASE (AST), SERUM (04/14/2010) AST (SGOT) 24 10 - 35 U/L [facility] 04/14/2010 04/14/2010 11: 35 PM EST Deepti Estes [facility] LAB SAME DAY RESULT Elana l Result [facility] [address] [place] [address] * (ABNORMAL) CBC 5 PART DIFF (04/14/2010) [...] 04/14/2010 11: 35 PM EST Deepti Estes [facility] LAB SAME DAY RESULT Elana l Result [facility] [address] [place] [address] documented in this encounter Visit Diagnoses Diagnosis Rheumatoid arthritis(714.0) Rheumatoid arthritis documented in this encounter Care Teams Product Development Specialist Relationship Specialty Start Date End Date Alberto Pacheco [address] [place] [address] PCP - General 07/19/08 05/24/13 Charly Saxena [facility] [place] [address] PCP - General Internal Medicine 05/25/13 07/16/17 Cheryl Calderon MD [facility] Adult Medicine [address] [place] [address] PCP - General Internal Medicine 07/17/17 documented as of this encounter
--- OUTSIDE RECORDS SUMMARY | 2024-07-31 10:56 | XMS_ITS | Encounter Summary ---
Author Organization [facility] Address [address] [place] [address] Care Team Providers Care Hand Blocker Name Role Phone Alberto Pacheco Primary Care Provider [phone] Charly Saxena Primary Care Provider [phone] Cheryl Calderon MD Primary Care Provider [phone] Reason for Visit * Reason Comments E-prescribing Refill Request Encounter Details Date Type Department Care Team (Late st Contact Info) Description 06/16/2011 Refill [facility] Rheumatology [address] [place] [address] Abel Fierro MD 5 [place] [address] E-prescribing Refill Request Social History Tobacco Use [...] EST Faxed/E-prescribed medication renewal request(s) for Opal Smithsusi 56 y.o. female received from pharmacy. Entered [...] her cruise. xc: Alberto Pacheco MD 28 [facility] Next OV: No future appointments. [...] on filedocumented in this encounter Care Teams Hand Blocker Relationship Specialty Start Date End Date Alberto Pacheco [address] [place] [address] PCP - General 07/19/08 05/24/13 Charly Saxena [facility] [address] [place] [address] PCP - General Internal Medicine 05/25/13 07/16/17 Cheryl Calderon MD [facility] Adult Medicine [address] [place] [address] PCP - General Internal Medicine 07/17/17 documented as of this encounter
--- OUTSIDE RECORDS SUMMARY | 2024-07-31 10:56 | XMS_ITS | Encounter Summary ---
Author Organization [facility] Address [address] [place] [address] Care Team Providers Care Employment Security Officer Name Role Phone Alberto Pacheco Primary Care Provider [phone] Charly Saxena Primary Care Provider [phone] Cheryl Calderon MD Primary Care Provider [phone] Encounter Details Date Type Department Care Team (Late st Contact Info) Description 05/29/2010 Orders Only [facility] Rheumatology [address] [place] [address] Abel Fierro MD 5 [place] [address] Social History Tobacco Use Types Packs/Day Years [...] of this encounter Procedures * Due to [place] state law, this organization might not be [...] in this encounter Results * Due to [place] state law, this organization might not be sharing negative HIV tests. * SED RATE ESR (05/29/2010) ESR (ERYTHROCYTE SEDIMENTATION RATE) 5 0 - 30 MM/HR [facility] 05/29/2010 05/29/2010 8:2 8 PM EST Abel Fierro MD LAB SAME DAY RESULT Final Resul t Performing Organization Address City/[facility] Co de Phone Number [facility] [address] [place] [address] * C-REACTIVE PROTEIN (CRP), QUANTITATIVE, SERUM INFLAMMATION (05/29/2010) Pathologist [facility] C REACTIVE PROTEIN (CRP) 0.2 0 - 0.7 MG/DL [facility] 05/29/2010 05/29/2010 8:2 8 PM EST Abel Fierro MD LABORATORY Final Result Performing Organization Address [facility] Co de Phone Number [facility] [address] [place] [address] * CREATININE WITH GLOMERULAR FILTRATION RATE, ESTIMATED [...] RESULT Final Resul t [facility] [address] [place] [address] * (ABNORMAL) CBC 5 PART DIFF (05/29/2010) [...] Organization Address City/[facility] Co de Phone Number [facility] [address] [place] [address] * ASPARTATE AMINOTRANSFERASE (AST), SERUM (05/29/2010) AST (SGOT) 21 10 - 35 U/L [facility] 05/29/2010 05/29/2010 8:2 8 PM EST us Abel Fierro MD LAB SAME DAY RESULT Final Resul t Performing Organization Address [facility] Co de Phone Number [facility] [address] [place] [address] * ALANINE AMINOTRANSFERASE (ALT), SERUM (05/29/2010) ALT (SGPT) 27 6 - 40 U/L [facility] 05/29/2010 05/29/2010 8:2 8 PM EST us Abel Fierro MD LAB SAME DAY RESULT Final Resul t Performing Organization Address [facility] de Phone Number [facility] [address] [place] [address] documented in this encounter Visit Diagnoses Diagnosis Rheumatoid arthritis(714.0) Rheumatoid arthritis documented in this encounter Care Teams Employment Security Officer Relationship Specialty Start Date End Date Alberto Pacheco [address] [place] [address] PCP - General 07/19/08 05/24/13 Charly Saxena [facility]0 [place] [address] PCP - General Internal Medicine 05/25/13 07/16/17 Cheryl Calderon MD [facility] Medicine [address] [place] [address] PCP - General Internal Medicine 07/17/17 documented as of this encounter
--- OUTSIDE RECORDS SUMMARY | 2024-07-31 10:56 | XMS_ITS | Encounter Summary ---
Author Organization [facility] Address [address] [place] [address] Care Team Providers Care Elephant Tamer Name Role Phone Alberto Pacheco Primary Care Provider [phone] Charly Saxena Primary Care Provider [phone] Cheryl Calderon MD Primary Care Provider [phone] Encounter Details Date Type Department Care Team (Late st Contact Info) Description 04/18/2012 Orders Only [facility] Rheumatology [address] [place] [address] Abel Fierro MD 5 [place] [address] Social History Tobacco Use Types Packs/Day Years [...] DIAGNOSTICS Comment:{SED RATE BY MODIFIE D WESTERGREN {[id number]) 04/18/2012 1:37 PM EST 04/18/2012 11:16 PM EST Narrative Resulting Agency Comment [id number] us Abel Fierro MD LAB SAME DAY RESULT Final Resul t Performing Organization Address City/State/[facility] Co de Phone Number [facility] [address] [place] [address] * (ABNORMAL) C-REACTIVE PROTEIN (CRP) - INFLAMMATION (04/18/2012 1:37 PM EST) C reactive protein 1.36(H) <0.80 mg/dL [facility] Comment: {C-REACTIVE PROTEIN {[id number]) Please be advised that patients taking Carboxypenicillins may exhibit falsely decreased C-Reactive Protein levels due to an analytical interference in this assay. 04/18/2012 1:37 PM EST 04/18/2012 11:16 PM EST Narrative Resulting Agency Comment [id number] us Abel Fierro MD LABORATORY Final Result Performing Organization Address [facility] Co de Phone Number [facility] [address] [place] [address] * CREATININE WITH GLOMERULAR FILTRATION RATE, ESTIMATED (EGFR) (04/18/2012 1:37 PM EST) Creatinine 0.77 0.50 - 1.05 mg/dL [facility] Comment: {CREATININE {[id number]) For patients >49 years of age, the reference limit for Creatinine is approximately 13% higher for people identified as -Dominican. GFR 86 > OR = 60 mL/min/1. 73m2 [facility] Comment:{eGFR NON-AFR. AMERI CAN {[id number]) GFR () 99 > OR = 60 mL/min/1. 73m2 [facility] Comment:{eGFR AMERIC AN {[id number]) 04/18/2012 1:37 PM EST 04/18/2012 11:16 PM [...] needs for GFR calculation. Resulting Agency Comment [id number] us Abel Fierro MD LAB SAME DAY RESULT Final Resul t Performing Organization Address City/[facility] Co de Phone Number [facility] [address] [place] [address] * (ABNORMAL) CBC INCLUDES DIFFERENTIAL AND PLATELET COUNT (04/18/2012 1:37 PM EST) WBC 8.3 3.8 - 10.8 Thousand/ uL [facility] Comment:{WHITE BLOOD CELL CO UNT {[id number]) RBC 5.25(H) 3.80 - 5.10 Million/u L [facility] Comment:{RED BLOOD CELL COUN T {[id number]) Hemoglobin 15.1 11.7 - 15.5 g/dL [facility] Comment:{HEMOGLOBIN {[id number]) Hematocrit 46.5(H) 35.0 - 45.0 % [facility] Comment:{HEMATOCRIT {[id number]) MCV 88.5 80.0 - 100.0 fL [facility] Comment:{MCV {[id number]) MCH 28.7 27.0 - 33.0 pg [facility] Comment:{MCH {[id number]) MCHC 32.5 32.0 - 36.0 g/dL [facility] Comment:{MCHC {[id number]) RDW 13.4 11.0 - 15.0 % [facility] Comment:{RDW {[id number]) PLT 318 140 - 400 Thousand/ uL [facility] Comment:{PLATELET COUNT {[id number]) MPV 8.2 7.5 - 11.5 fL [facility] Comment:{MPV {[id number]) Neutrophils # 4681 1500 - 7800 cells/uL [facility] Comment:{ABSOLUTE NEUTROPHIL S {[id number]) Lymphocytes # 2598 850 - 3900 cells/uL [facility] Comment:{ABSOLUTE LYMPHOCYTE S {[id number]) Monocytes # 805 200 - 950 cells/uL [facility] Comment:{ABSOLUTE MONOCYTES {[id number]) Eosinophils # 199 15 - 500 cells/uL [facility] Comment:{ABSOLUTE EOSINOPHIL S {[id number]) Basophils # 17 0 - 200 cells/uL [facility] Comment:{ABSOLUTE BASOPHILS {[id number]) Neutrophils % 56.4 % [facility] Comment:{NEUTROPHILS {[id number]) Lymphocytes % 31.3 % [facility] Comment:{LYMPHOCYTES {[id number]) Monocytes % 9.7 % [facility] Comment:{MONOCYTES {[id number]) Eosinophils % 2.4 % [facility] Comment:{EOSINOPHILS {[id number]) Basophils % 0.2 % [facility] Comment:{BASOPHILS {[id number]) 04/18/2012 1:37 PM EST 04/18/2012 11:16 PM EST Narrative Resulting Agency Comment [id number] us Abel Fierro MD LAB SAME DAY RESULT Final Resul t Performing Organization Address City/[facility] Co de Phone Number [facility] [address] [place] [address] * ASPARTATE AMINOTRANSFERASE (AST), SERUM (04/18/2012 1:37 PM EST) AST (SGOT) 18 10 - 35 U/L [facility] Comment:{AST {[id number]) 04/18/2012 1:37 PM EST 04/18/2012 11:16 PM EST Narrative Resulting Agency Comment [id number] us Abel Fierro MD LAB SAME DAY RESULT Final Resul t Performing Organization Address [facility] de Phone Number [facility] [address] [place] [address] * ALANINE AMINOTRANSFERASE (ALT), SERUM (04/18/2012 1:37 PM EST) ALT (SGPT) 17 6 - 40 U/L [facility] Comment:{ALT {[id number]) 04/18/2012 1:37 PM EST 04/18/2012 11:16 PM EST Narrative Resulting Agency Comment [id number] us Abel Fierro MD LAB SAME DAY RESULT Final Resul t Performing Organization Address City/[facility] de Phone Number [facility] [address] [place] [address] documented in this encounter Visit Diagnoses Diagnosis Rheumatoid arthritis(714.0) Rheumatoid arthritis documented in this encounter Care Teams Elephant Tamer Relationship Specialty Start Date End Date Alberto Pacheco [address] [place] [address] PCP - General 07/19/08 05/24/13 Charly Saxena [facility] [address] [place] [address] PCP - General Internal Medicine 05/25/13 07/16/17 Cheryl Calderon MD [address] [address] PCP - General Internal Medicine 07/17/17 documented as of this encounter
--- OUTSIDE RECORDS SUMMARY | 2024-07-31 10:56 | XMS_ITS | Encounter Summary ---
Author Organization [facility] Address [address] [place] [address] Care Team Providers Care Pattern Drum Maker Name Role Phone Alberto Pacheco Primary Care Provider [phone] Charly Saxena Primary Care Provider [phone] Cheryl Calderon MD Primary Care Provider [phone] Reason for Visit * Reason Comments E-prescribing Refill Request Encounter Details Date Type Department Care Team (Late st Contact Info) Description 02/05/2012 Refill [facility] Rheumatology [address] [place] [address] Abel Fierro MD [address] [place] [address] E-prescribing Refill Request Social History Tobacco Use [...] encounter Miscellaneous Notes * Telephone Encounter - Josef Mosssonja Valdes - 02/15/2012 11:02 AM EDT According [...] on filedocumented in this encounter Care Teams Pattern Drum Maker Relationship Specialty Start Date End Date Alberto Pacheco [address] [place] [address] PCP - General 07/19/08 05/24/13 Charly Saxena [facility] [address] [place] [address] PCP - General Internal Medicine 05/25/13 07/16/17 Cheryl Calderon MD [facility] [address] [place] [address] PCP - General Internal Medicine 07/17/17 documented as of this encounter
--- OUTSIDE RECORDS SUMMARY | 2024-07-31 10:56 | XMS_ITS | Encounter Summary ---
Author Organization [facility] Address [address] [place] [address] Care Team Providers Care Trade Marker Name Role Phone Alberto Pacheco Primary Care Provider [phone] Unknown Pcp, Non [facility] Primary Care Provider Unava ilCharly Antoine Primary Care Provider [phone] Charly Saxena Primary Care Provider Cheryl Calderon MD Primary Care Provider [phone] Encounter Details Date Type Department Care Team (Late st Contact Info) Description 11/15/[address] [facility] Rheumatology [address] [place] [address] Abel Fierro MD [address] [place] [address] Social History Tobacco Use Types Packs/Day Years [...] arthritis documented in this encounter Care Teams Trade Marker Relationship Specialty Start Date End Date Alberto Pacheco [address] [place] [address] PCP - General 07/19/08 05/24/13 Unknown Pcp, Non [facility] PCP - General 06/30/08 07/18/08 Charly Saxena [facility] [address] [place] [address] PCP - General 01/18/06 06/29/08 Charly Saxena [facility] [address] [place] [address] PCP - General Internal Medicine 05/25/13 07/16/17 Cheryl Calderon MD [facility] Adult Medicine [address] [place] [address] PCP - General Internal Medicine 07/17/17 documented as of this encounter
--- OUTSIDE RECORDS SUMMARY | 2024-07-31 10:56 | XMS_ITS | Encounter Summary ---
Author Organization [facility] Address [address] [place] [address] Care Team Providers Care Plumbing Technician Name Role Phone Alberto Pacheco Primary Care Provider Charly Saxena Primary Care Provider [phone] Cheryl Calderon MD Primary Care Provider [phone] Encounter Details Date Type Department Care Team (Late st Contact Info) Description 08/21/[address] [facility] Rheumatology [address] [place] [address] Abel Fierro MD [address] [place] [address] Social History Tobacco Use Types Packs/Day Years [...] of this encounter Procedures * Due to [place] state law, this organization might not be [...] in this encounter Results * Due to [place] state law, this organization might not be [...] Final Resul t Performing Organization Address [facility] Co de Phone Number [facility] [address] [place] [address] * ALANINE AMINOTRANSFERASE (ALT), SERUM (08/21/2010) ALT (SGPT) 37 6 - 40 U/L [facility] 08/21/2010 08/21/2010 9:0 1 PM EDT us Abel Fierro MD LAB SAME DAY RESULT Final Resul t Performing Organization Address City/[facility] Co de Phone Number [facility] [address] [place] [address] * ASPARTATE AMINOTRANSFERASE (AST), SERUM (08/21/2010) AST (SGOT) 27 10 - 35 U/L [facility] 08/21/2010 08/21/2010 9:0 1 PM EDT us Abel Fierro MD LAB SAME DAY RESULT Final Resul t Performing Organization Address City/[facility]/ZIP Co de Phone Number [facility] [address] [place] [address] * (ABNORMAL) CBC 5 PART DIFF (08/21/2010) [...] Resul t Performing Organization Address City/[facility]/ZIP Co de Phone Number [facility] [address] [place] [address] documented in this encounter Visit Diagnoses Diagnosis Rheumatoid arthritis(714.0) Rheumatoid arthritis documented in this encounter Care Teams Plumbing Technician Relationship Specialty Start Date End Date Alberto Pacheco [address] [place] [address] PCP - General 07/19/08 05/24/13 Charly Saxena [facility] [address] [place] [address] PCP - General Internal Medicine 05/25/13 07/16/17 Cheryl Calderon MD [facility] [address] [place] [address] PCP - General Internal Medicine 07/17/17 documented as of this encounter
--- OUTSIDE RECORDS SUMMARY | 2024-07-31 10:56 | XMS_ITS | Encounter Summary ---
Author Organization [facility] Address [address] [place] [address] Care Team Providers Care Lard Bleacher Name Role Phone Alberto Pacheco Primary Care Provider [phone] Charly Saxena Primary Care Provider [phone] Cheryl Calderon MD Primary Care Provider [phone] Encounter Details Date Type Department Care Team (Late st Contact Info) Description 09/02/2009 Orders Only [facility] Rheumatology [address] [place] [address] Abel Fierro MD [address] [place] [address] Social History Tobacco Use Types Packs/Day Years [...] Organization Address [facility] de Phone Number [facility] [address] [place] [address] * ASPARTATE AMINOTRANSFERASE (AST), SERUM (09/02/2009) AST (SGOT) 24 10 - 35 U/L [facility] 09/02/2009 09/02/2009 9:5 7 PM EDT us Abel Fierro MD LAB SAME DAY RESULT Final Resul t Performing Organization Address [facility] Phone Number [facility] [address] [place] [address] * CREATININE WITH GLOMERULAR FILTRATION RATE, ESTIMATED [...] Final Resul t Performing Organization Address City/[facility]/ZIP Co de Phone Number [facility] [address] [place] [address] * (ABNORMAL) CBC 5 PART DIFF (09/02/2009) [...] Final Resul t Performing Organization Address City/[facility]/ZIP Co de Phone Number [facility] [address] [place] [address] documented in this encounter Visit Diagnoses Diagnosis Rheumatoid arthritis(714.0) Rheumatoid arthritis documented in this encounter Care Teams Lard Bleacher Relationship Specialty Start Date End Date Alberto Pacheco [address] [place] [address] PCP - General 07/19/08 05/24/13 Charly Saxena [facility] [address] [place] [address] PCP - General Internal Medicine 05/25/13 07/16/17 Cheryl Calderon MD [facility] Medicine [address] [place] [address] PCP - General Internal Medicine 07/17/17 documented as of this encounter
--- OUTSIDE RECORDS SUMMARY | 2024-07-31 10:56 | XMS_ITS | Encounter Summary ---
Author Organization [facility] Address [address] [place] [address] Care Team Providers Care Forest Supervisor Name Role Phone Alberto Pacheco Primary Care Provider [phone] Charly Saxena Primary Care Provider [phone] Cheryl Calderon MD Primary Care Provider [phone] Encounter Details Date Type Department Care Team (Late st Contact Info) Description 05/13/2009 Orders Only [facility] Rheumatology [address] [place] [address] Abel Fierro MD [address] [place] [address] Social History Tobacco Use Types Packs/Day Years [...] MD LABORATORY Final Result [facility] [address] [place] [address] * SED RATE ESR (05/13/2009) ESR (ERYTHROCYTE SEDIMENTATION RATE) 19 0 - 30 MM/HR [facility] 05/13/2009 05/13/2009 8:0 1 PM EST us Abel Fierro MD LAB SAME DAY RESULT Final Resul t Performing Organization Address [facility] de Phone Number [facility] [address] [place] [address] * ALANINE AMINOTRANSFERASE (ALT), SERUM (05/13/2009) ALT (SGPT) 22 6 - 40 U/L [facility] 05/13/2009 05/13/2009 8:0 1 PM EST us Abel Fierro MD LAB SAME DAY RESULT Final Resul t Performing Organization Address [facility] Phone Number [facility] [address] [place] [address] * ASPARTATE AMINOTRANSFERASE (AST), SERUM (05/13/2009) AST (SGOT) 21 10 - 35 U/L [facility] 05/13/2009 05/13/2009 8:0 1 PM EST us Abel Fierro MD LAB SAME DAY RESULT Final Resul t Performing Organization Address [facility] Phone Number [facility] [address] [place] [address] * (ABNORMAL) CBC 5 PART DIFF (05/13/2009) [...] RESULT Final Resul t [facility] [address] [place] [address] documented in this encounter Visit Diagnoses Diagnosis Rheumatoid arthritis(714.0) Rheumatoid arthritis documented in this encounter Care Teams Forest Supervisor Relationship Specialty Start Date End Date Alberto Pacheco [address] [place] [address] PCP - General 07/19/08 05/24/13 Charly Saxena [facility] [address] [place] [address] PCP - General Internal Medicine 05/25/13 07/16/17 Cheryl Calderon MD [facility] Adult Medicine [address] [place] [address] PCP - General Internal Medicine 07/17/17 documented as of this encounter
--- OUTSIDE RECORDS SUMMARY | 2024-07-31 10:56 | XMS_ITS | Encounter Summary ---
Author Organization [facility] Address [address] [place] [address] Care Team Providers Care Adjunct Psychology Professor Name Role Phone Alberto Pacheco Primary Care Provider [phone] Charly Saxena Primary Care Provider [phone] Cheryl Calderon MD Primary Care Provider [phone] Encounter Details Date Type Department Care Team (Late st Contact Info) Description 12/26/2010 Orders Only [facility] Rheumatology [address] [place] [address] Abel Fierro MD [address] [place] [address] Social History Tobacco Use Types Packs/Day Years [...] [facility] Comment:{WHITE BLOOD CELL CO UNT {[id number]) RBC 5.17(H) 3.80 - 5.10 Million/u L [facility] Comment:{RED BLOOD CELL COUN T {[id number]) Hemoglobin 15.0 11.7 - 15.5 g/dL [facility] Comment:{HEMOGLOBIN {[id number]) Hematocrit 46.0(H) 35.0 - 45.0 % [facility] Comment:{HEMATOCRIT {[id number]) MCV 89.1 80.0 - 100.0 fL [facility] Comment:{MCV {[id number]) MCH 29.0 27.0 - 33.0 pg [facility] Comment:{MCH {[id number]) MCHC 32.5 32.0 - 36.0 g/dL [facility] Comment:{MCHC {[id number]) RDW 16.1(H) 11.0 - 15.0 % [facility] Comment:{RDW {[id number]) PLT 300 140 - 400 Thousand/ uL [facility] Comment:{PLATELET COUNT {[id number]) MPV 7.6 7.5 - 11.5 fL [facility] Comment:{MPV {[id number]) Neutrophils # 7707 1500 - 7800 cells/uL [facility] Comment:{ABSOLUTE NEUTROPHIL S {[id number]) Lymphocytes # 2163 850 - 3900 cells/uL [facility] Comment:{ABSOLUTE LYMPHOCYTE S {[id number]) Monocytes # 452 200 - 950 cells/uL [facility] Comment:{ABSOLUTE MONOCYTES {[id number]) Eosinophils # 147 15 - 500 cells/uL [facility] Comment:{ABSOLUTE EOSINOPHIL S {[id number]) Basophils # 32 0 - 200 cells/uL [facility] Comment:{ABSOLUTE BASOPHILS {[id number]) Neutrophils % 73.4 % [facility] Comment:{NEUTROPHILS {[id number]) Lymphocytes % 20.6 % [facility] Comment:{LYMPHOCYTES {[id number]) Monocytes % 4.3 % [facility] Comment:{MONOCYTES {[id number]) Eosinophils % 1.4 % [facility] Comment:{EOSINOPHILS {[id number]) Basophils % 0.3 % [facility] Comment:{BASOPHILS {[id number]) 12/26/2010 9:49 AM EDT 12/27/2010 12:33 AM EDT Narrative Resulting Agency Comment 42A us Abel Fierro MD LAB SAME DAY RESULT Final Resul t Performing Organization Address [facility] Co de Phone Number [facility] [address] [place] [address] * ALANINE AMINOTRANSFERASE (ALT), SERUM (12/26/2010 9:49 AM EDT) ALT (SGPT) 16 6 - 40 U/L [facility] Comment:{ALT {[id number]) 12/26/2010 9:49 AM EDT 12/27/2010 12:33 AM EDT Narrative Resulting Agency Comment 823X us Abel Fierro MD LAB SAME DAY RESULT Final Resul t Performing Organization Address City/[facility] Co de Phone Number [facility] [address] [place] [address] * ASPARTATE AMINOTRANSFERASE (AST), SERUM (12/26/2010 9:49 AM EDT) AST (SGOT) 16 10 - 35 U/L [facility] Comment:{AST {[id number]) 12/26/2010 9:4 9 AM EDT 12/27/2010 12:33 AM EDT Narrative Resulting Agency Comment 822X us Abel Fierro MD LAB SAME DAY RESULT Final Resul t Performing Organization Address [facility] Co de Phone Number [facility] [address] [place] [address] * CREATININE WITH GLOMERULAR FILTRATION RATE, ESTIMATED (EGFR) (12/26/2010 9:49 AM EDT) Creatinine 0.86 0.60 - 1.10 mg/dL [facility] Comment:{CREATININE {[id number]) GFR 76 > OR = 60 mL/min/1.7 3m2 [facility] Comment:{eGFR NON-AFR. AMERI CAN {[id number]) GFR () 88 > OR = 60 mL/min/1.7 3m2 [facility] Comment:{eGFR AMERIC AN {[id number]) 12/26/2010 9:49 AM EDT 12/27/2010 12:33 AM [...] Resul t Performing Organization Address City/[facility] Co de Phone Number [facility] [address] [place] [address] documented in this encounter Visit Diagnoses Diagnosis Rheumatoid arthritis(714.0) Rheumatoid arthritis documented in this encounter Care Teams Adjunct Psychology Professor Relationship Specialty Start Date End Date Alberto Pacheco [address] [place] [address] PCP - General 07/19/08 05/24/13 Charly Saxena [facility] [address] [place] [address] PCP - General Internal Medicine 05/25/13 07/16/17 Cheryl Calderon MD [facility] Medicine [address] [place] [address] PCP - General Internal Medicine 07/17/17 documented as of this encounter
--- OUTSIDE RECORDS SUMMARY | 2024-07-31 10:56 | XMS_ITS | Encounter Summary ---
Author Organization [facility] Address [address] [place] [address] Phone Care Team Providers Care Type Mapper Name Role Phone Cash Fernandes MD Unavailable [phone] Keren Poon [facility] Primary Care Provid er Willi Wells MD Unavailable Jose Thakur MD Unavailable Dana Rucker [address] LIGHT SERVICER HELPER Unavailable Jonathan Alvarez MD Unavailable [phone] Anival Borja MD Unavailable [phone] LIGHT SERVICER HELPER Unavailable Gutierrez Pittman MD Unavailable [phone] Encounter Details Date Type Department Care Team (Late st Contact Info) Description 05/13/2024 Procedure Pass [facility] Endoscopy Admitting Dept Virtual Department [address] [place] [address] Social History Tobacco Use Types Packs/Day Years [...] Contact Info) Description 06/06/2024 Procedure Pass [address] [address] 08/04/2024 2:30 AM EDT [facility] [address] [place] [address] Orlando Mckeon RN [address] [place] [address] 08/11/2024 2:00 AM EDT [facility] [address] [place] [address] Orlando Mckeon RN [address] [place] [address] 08/18/2024 1:30 AM EDT [facility] [address] [place] [address] Orlando Mckeon RN [address] [place] [address] 08/25/2024 1:00 AM EDT [facility] [address] [place] [address] Orlando Mckeon RN [address] [place] [address] 09/01/2024 12:30 AM EDT Appointment [facility] [address] [place] [address] Orlando Mckeon RN [address] [place] [address] 09/18/2024 2:30 PM EDT Office Visit [facility] Infectious Diseases [address] [place] [address] Dana Rucker, DIVYA [address] [facility], [address] [place] [address] 11/26/2024 3:30 PM EDT Office Visit [address] [place] [address] Keren Poon, ORI [address] [place] [address] 12/11/2024 2:00 PM EDT Appointment [facility] [address] [place] [address] Keren Poon, ORI [address] [address] 01/07/2025 2:30 PM EDT Office Visit [facility] [address] [place] [address] Jose Thakur MD [address] [place] [address] 01/29/2025 3:00 PM EDT Office Visit [address] [place] [address] Keren Poon, ORI [address] [address] 06/03/2025 2:00 PM EST Office Visit [facility] [address] [place] [address] [place] [address] Keren Poon, ORI [address] [place] [address] [place] documented as of this encounter Visit Diagnoses [...] documented as of this encounter Care Teams Type Mapper Relationship Specialty Start Date End Date Keren Poon, ORI [address] [place] [address] [place] [address] PCP - General Family Medicine 01/31/23 Cash Fernandes MD [address] [place] [address] Gastroenterology 08/23/20 Willi [place] MD [address] [place] [address] [place] [address] Rheumatology 02/04/24 Jose Thakur MD [address] [place] [address] Backpackers Manager Pulmonary Disease 03/17/24 Dana Rucker FNP [address] [facility], 2nd [place] [address] Nurse Practitioner Infectious Diseases 05/21/24 Jonathan Alvarez MD [address] [place] [address], [address] [place] [address] Urology 05/14/23 Anival Borja MD [address] [place] [address], [address] [place] [address] Neurologist Neurology 01/04/23 Lyndsay Reynoso FNP [address] [place] [address] [place] [address] [email or web address] Nurse Practitioner Pain Medicine 05/27/22 Gutierrez Pittman MD [address] [place] [address] Room Service Clerk Cardiology 05/27/24 documented as of this encounter Additional Source Comments The information contained in this document represents components of the legal health record. It is not the complete legal health record.[facility]
== END 2024-07-31 10:29 | disposition home or self-care (01) ==
LOC: HO.PMC 09:46
PROVIDERS: PCP Nurse Practitioner Family; Visit Provider Internal Medicine
DX: M79.18 Myalgia, other site (principal)
CPT/HCPCS: 20553

== ENCOUNTER → 2024-07-31 09:46 | Outpatient (BNVA) | payer MEDICARE, BC, SELFPAY | PROVIDERS: PCP Nurse Practitioner Family; Visit Provider Internal Medicine | DX: M79.18 Myalgia, other site (principal) | CPT/HCPCS: 20553 ==

== ENCOUNTER 2024-08-28 09:12 | Outpatient (AMB) | payer MEDICARE, BC, SELFPAY ==
[2024-08-28 09:23] VITALS: BP 141/94; PULSE 84; O2SAT 98; BMI 27.1
--- NOTE | 2024-08-28 09:23 | MHC.OFFVIS ---
Vital Signs 08/28/24 09:23 Height 5 ft 6 in Weight 168 lb BMI 27.1 BP 141/94 H Blood Pressure Location Lt brachial Position Sitting Pulse 84 Pulse Source Pulse Oximeter Pulse Oximetry (%) 98 Oxygen Delivery Method Room Air Intake Visit Reasons: Trigger Point Inj. Intake Note: Pain today 11/05 Physician Practice Coordinator Required: No Rental Car Porter: Rental Car Porter Present Accompanied by: Julito T Allergies codeine Allergy (Mild, Verified 08/28/24 09:24) Paleness Gold Salts Allergy (Mild, Verified 08/28/24 09:24) Rash Sulfa (Sulfonamide Antibiotics) Allergy (Mild, Verified 08/28/24 09:24) Swelling HPI HPI Trigger Point Inj.: Details: Patient presents for scheduled procedure. Denies any recent cough, cold, infection, fever or other significant changes in medical history since last office visit. [facility] Medical History Anxiety and depression Lacunar infarction Diverticulitis Diverticulosis Endometriosis Schatzki's ring Drug-induced lupus erythematosus Encounter for testing for latent tuberculosis infection Afib Osteopenia of multiple sites Rheumatoid arthritis involving multiple sites with positive rheumatoid factor Vitamin D deficiency Primary osteoarthritis of both knees Surgical History H/O unilateral oophorectomy H/O cataract extraction History of bladder suspension procedure H/O elbow replacement H/O tubal ligation History of cholecystectomy History of ankle surgery H/O hand surgery Family History Mother Diabetes Sister Diabetes Pancreatic cancer Father Pancreatic cancer Seizures Social History Household Members: Spouse Alcohol intake: never Patient Tobacco Use Status: Never used Tobacco Current occupational status: disabled Physical Exam Vital Signs: Last Vital Signs Pulse 84 08/28/24 09:23 BP 141/94 H 08/28/24 09:23 Pulse Ox 98 08/28/24 09:23 Oxygen Delivery Method Room Air 08/28/24 09:23 BMI result Body Mass Index 27.1 Office Procedures Injection Trigger Point Multi Pre-procedure diagnosis: Myofascial pain. Post-procedure diagnosis: Myofascial pain. Site and number of trigger points: Bilateral cervicalis Bilateral occipitalis? Bilateral trapezius Solution: Total volume administered 10 ml (ropivacaine 0.25%). The procedure, its benefits, and its risks were explained to the patient and all questions were answered. Prior to the start of the procedure, a ?time out? was performed to confirm correct patient, procedure, and laterality. Trigger points were identified by manual palpation and marked. The skin was cleaned with Chloraprep. A 1.5 inch 25 G needle was used. Each of the trigger points were approximated and elevated in the direction away from the body. Dry needling then took place for five seconds. Approximately 0.5 ml to 1 ml of injectate was delivered to the trigger point followed by dry needling for five seconds. This process was repeated at each trigger point site. The patient tolerated the procedure well. The patient tolerated the procedure well, without complication. The patient denied any numbness, paresthesias, or weakness. Post-procedure vitals were recorded as part of the nursing discharge note in electronic medical record. Following a period of observation, the patient was discharged in stable condition with written discharge instructions. Trigger Point Multiple: 46377- Trigger point injection =/>3 Assessment & Plan Assessment & Plan (1) Myofascial pain syndrome, cervical: Code(s): M79.18 - Myalgia, other site Category: Medical Plan Patient is status post TPIs. Patient tolerated procedure well and was discharged home in stable condition with discharge instructions. All questions were answered. We will follow-up via telephone or in clinic to assess response to therapy. A follow-up appointment was made during today's visit. Coding Level of Care Code Procedure Only Diagnoses Myofascial pain syndrome, cervical M79.18 CPT Codes Details - Trigger Point Multiple: 04000- Trigger point injection =/>3 ([id number])
--- OUTSIDE RECORDS SUMMARY | 2024-08-28 09:49 | XMS_ITS | Encounter Summary ---
Author Organization [facility] Address [address] [place] [address] Care Team Providers Care Continuous Mining Machine Lode Miner Name Role Phone Charly Saxena Primary Care Provider [phone] Cheryl Calderon MD Primary Care Provider [phone] Reason for Visit * Reason Comments F/u From OV Post injection f/u Encounter Details Date Type Department Care Team (Late st Contact Info) Description 10/24/2015 Telephone [facility] Rheumatology [address] [place] [address] Abel Fierro MD [address] [place] [address] F/u From OV (Post injection f/u ) [...] on filedocumented in this encounter Care Teams Continuous Mining Machine Lode Miner Relationship Specialty Start Date End Date Charly Saxena [facility] [address] [place] [address] PCP - General Internal Medicine 05/25/13 07/16/17 Cheryl Calderon MD [facility] [address] [place] [address] PCP - General Internal Medicine 07/17/17 documented as of this encounter
--- OUTSIDE RECORDS SUMMARY | 2024-08-28 09:49 | XMS_ITS | Clinical Summary ---
Author Organization [facility] Address [address] [place] [address] Care Team Providers Care Hydraulic Punch Press Operator Name Role Phone Cheryl Calderon MD Primary Care Provider [phone] Allergies Active Allergy Reactions Criticality Noted Date [...] Name Administration Dates Next Due COVID-19, mRNA ([employer]Now Pre F all 2022) Monovalent, 30 mcg/0.3 ml 04/11/2021,10/03/2020,07/08/2020 Covid-19, mRNA ([employer]Now Pre F all 2022) Bivalent, 30 mcg/0.3 ml mohan-sucrose (12+) dose 04/13/2022 Covid-19, mRNA ([employer]Now Pre F all 2022) Monovalent, 30 mcg/0.3 [...] 2023 04/13/2022, 09/11/2021, 04/11/2021, Additional history exists DTaP/Tdap/Td (3 - Td or Tdap) 09/27/2024 09/27/2014, 04/14/2010, 07/05/1997 Influenza (Season Ended) 2024 022, 02/12/2021, 01/07/2020, Additional history exists RSV (1 - 1-dose 75+ series) 2030 [...] Additional history exists Pneumococcal 50+ years Completed , 09/27/2014, 10/11/2011, Additional history exists HPV Vaccine [...] Zoster (Zostavax) Discontinued Procedures * Due to [place] state law, this organization might not be [...] to Health Maintenance Results * Due to [place] state law, this organization might not be sharing negative HIV tests. * COMPREHENSIVE EYE EXAM (01/23/2019) us Unknown Provider MINOR PROCEDURE Final Result * HEPATITIS C AB WITH REFLEX TO RNA PCR, SERUM (12/23/2018 11:32 AM EDT) Hepatitis C virus Ab NON-REACT MANOLO NON-REACT MANOLO [facility] Hepatitis C virus Ab Signal/Cutoff 0.01 <1.00 [facility] Comment: HCV antibody was non-reactive. There is no laboratory evidence of HCV infection. In most cases, no further action is required. However, if recent HCV exposure is suspected, a test for HCV RNA (test code 76631) is suggested. For additional information please refer to http://education.CrushBlvd/faq/VPR87b3 (This link is being provided for informational/ educational purposes only.) 12/23/2018 11:3 2 AM EDT 12/23/2018 11:23 PM EDT Narrative Resulting Agency Comment [id number] us Liliana Calderon NP LABORATORY Final Result [facility] [address] [place] [address] * DXA BONE DENSITY STUDY AXIAL (LSSPINE, [...] X-RAY ABSORPTIOMETRY (DXA) SCAN: ?? DXA MODEL: HoloArradiance Discovery SL in fast scan mode RISK [...] RISK/LIPID PROFILE I (11/03/2004 9:46 AM EDT) Pathologist [facility] CHOLESTEROL, TOTAL 191 100 - 199 MG/DL [facility] (CLIA# [id number]) TRIGLYCERIDES 132 30 - 149 MG/DL [facility] (CLIA# [id number]) HDL-CHOLESTEROL 85(H) 40 - 77 MG/DL [facility] (CLIA# [id number]) LDL-CHOLESTEROL 80 62 - 130 MG/DL [facility] (CLIA# [id number]) Comment: RISK CATEGORY: ??LDL-CHOLESTEROL GOAL CHD AND CHD RISK EQUIVALENTS: ??<100 MULTIPLE (2+) FACTORS: ??<130 ZERO TO ONE RISK FACTOR: ??<160 CHD RELATIVE RISK RATIO (TOTAL/HDL) 2.25 [facility] (CLIA# [id number]) Comment:(< .25 X AVERAGE) 11/03/2004 9:46 AM EDT 11/03/2004 9:46 AM EDT Narrative [facility] (CLIA# [id number]) - 11/03/2004 9:46 AM EDT FASTING us Abel Fierro MD LABORATORY Final Result Performing Organization Address [facility] Co de Phone Number [facility] (CLIA# [id number]) [address] [place] [address] * XRAY CHEST 2 VIEWS PA & LAT (06/28/2003 1:26 PM EST) [facility] RADIOLOGY REPORT Chest: Lungs and pleural [...] Conclusion: No acute disease. [facility] (CLIA# [id number]) Anatomical Region Laterality Modality Other 06/28/2003 1:26 [...] the interpreting radiologist. BI-RADS Category 1: Negative M [facility]ared [facility] (CLIA# [id number]) LETTER SENT A mammogram letter type A N was printed on 07/08/2001 [facility] (CLIA# [id number]) Anatomical Region Laterality Modality Other 06/25/2001 1:42 PM EST Charly Saxena [facility]- OTHER Final Res ult * [...] polyp was seen. FC [facility] (CLIA# [id number]) Anatomical Region Laterality Modality Other 06/07/2000 8:40 AM EST Narrative 06/07/2000 2:57 PM EST Reason for Study/History: ABD PAIN Test(s) processed by : [facility] Jeff Puente PA-C CONTRAST STUDY- OTHER Elana l Result * PAP SMEAR (12/06/1999 12:00 AM EDT) SPERM SOURCE VCE [facility] (CLIA# [id number]) NUMBER OF SLIDES RECEIVED: 1 [facility] (CLIA# [id number]) HISTORY CLINICAL [facility] (CLIA# [id number]) Comment:Menopause [address] [facility] (CLIA# [id number]) Comment:Endocervical cells a re present SPECIMEN ADEQUACY: [facility] (CLIA# [id number]) Comment:Satisfactory specime n for Cytologic evaluation. PATHOLOGY DIAGNOSIS [facility] (CLIA# [id number]) Comment:WITHIN NORMAL LIMITS PATHOLOGY GROUP: [facility] (CLIA# [id number]) Comment: [address] [place]. [address] 12/06/1999 12/06/1999 Chloe Law MD PATHOLOGY Final Resul t [facility] (CLIA# [id number]) [address] [place] [address] from Last 3 Months or Most Recently Relevant to Health Maintenance Insurance , [address] [place] [address] MEDICARE PART B [facility] FFS FEDERAL Care Teams Hydraulic Punch Press Operator Relationship Specialty Start Date End Date Cheryl Calderon MD [facility] Adult Medicine [address] [place] [address] PCP - General Internal Medicine 07/17/17
--- OUTSIDE RECORDS SUMMARY | 2024-08-28 09:49 | XMS_ITS | Encounter Summary ---
Author Organization [facility] Address [address] [place] [address] Care Team Providers Care Fountain Dispenser Name Role Phone Cheryl Calderon MD Primary Care Provider [phone] Reason for Visit * Reason Comments Appointment Encounter Details Date Type Department Care Team ([facility] st Contact Info) Description 01/12/2019 Telephone [facility] Hematology/Oncology [address] [facility] [address] [place] [phone] Ita Anne RN [address] [place] [address] Appointment Social History Tobacco Use Types Packs/Day [...] Lyndsay Lopez MD [facility]. Ophthalmology [phone] 01/26/19 9:30 AM EAP CHEMO TX HEM ONC [facility] Hematology/Oncology [phone] 01/30/19 2:40 PM Liliana Calderon NP [facility] Hematology/Oncology [phone] Patient's is aware of the appointment. * Telephone Encounter - Liliana Calderon NP - 01/14/2019 5:28 PM EDT To schedule a follow-up visit for this patient within the week of Rituxan infusion. Thanks! * Telephone Encounter - Apple Bridges - 01/12/2019 4:44 PM EDT Liliana is not in the office on 01/26/19, she is in [place]. * Telephone Encounter - Ita Anne - [...] on filedocumented in this encounter Care Teams Fountain Dispenser Relationship Specialty Start Date End Date Cheryl Calderon MD [facility] Medicine [address] [place] [address] PCP - General Internal Medicine 07/17/17 documented as of this encounter
--- OUTSIDE RECORDS SUMMARY | 2024-08-28 09:49 | XMS_ITS | Encounter Summary ---
Author Organization [facility] Address [address] [place] [address] Care Team Providers Care Silver Spray Worker Name Role Phone Alberto Pacheco Primary Care Provider [phone] Charly Saxena Primary Care Provider [phone] Cheryl Calderon MD Primary Care Provider [phone] Encounter Details Date Type Department Care Team (Late st Contact Info) Description 10/28/2012 Orders Only [facility] Rheumatology [address] [place] [address] Abel Fierro MD [address] [place] [address] Social History Tobacco Use Types Packs/Day Years [...] - 1.05 mg/dL [facility] Comment: {CREATININE {[id number]) For patients >49 years of age, the reference limit for Creatinine is approximately 13% higher for people identified as -Filipino. GFR 91 > OR = 60 mL/min/1. 73m2 [facility] Comment:{eGFR NON-AFR. AMERI CAN {[id number]) GFR () 106 > OR = 60 mL/min/1. 73m2 [facility] Comment:{eGFR AMERIC AN {[id number]) 10/28/2012 2:15 PM EDT 10/28/2012 11:59 PM [...] needs for GFR calculation. Resulting Agency Comment [id number] us Abel Fierro MD LAB SAME DAY RESULT Final Resul t [facility] [address] [place] [address] * ALANINE AMINOTRANSFERASE (ALT), SERUM (10/28/2012 2:15 PM EDT) ALT (SGPT) 21 6 - 29 U/L [facility] Comment:{ALT {[id number]) 10/28/2012 2:15 PM EDT 10/28/2012 11:59 PM EDT Narrative Resulting Agency Comment [id number] Abel Fierro MD LAB SAME DAY RESULT Final Resul t Performing Organization Address City/[facility]/ZIP Co de Phone Number [facility] [address] [place] [address] * ASPARTATE AMINOTRANSFERASE (AST), SERUM (10/28/2012 2:15 PM EDT) Pathologist [facility] AST (SGOT) 19 10 - 35 U/L [facility] Comment:{AST {[id number]) 10/28/2012 2:15 PM EDT 10/28/2012 11:59 PM EDT Narrative Resulting Agency Comment [id number] Abel Fierro MD LAB SAME DAY RESULT Final Resul t Performing Organization Address [facility] Co de Phone Number [facility] [address] [place] [address] * (ABNORMAL) CBC INCLUDES DIFFERENTIAL AND PLATELET COUNT (10/28/2012 2:15 PM EDT) Pathologist [facility] WBC 10.8 3.8 - 10.8 Thousand/ uL [facility] Comment:{WHITE BLOOD CELL CO UNT {[id number]) RBC 5.06 3.80 - 5.10 Million/u L [facility] Comment:{RED BLOOD CELL COUN T {[id number]) Hemoglobin 12.9 11.7 - 15.5 g/dL [facility] Comment:{HEMOGLOBIN {[id number]) Hematocrit 41.7 35.0 - 45.0 % [facility] Comment:{HEMATOCRIT {[id number]) MCV 82.5 80.0 - 100.0 fL [facility] Comment:{MCV {[id number]) MCH 25.5(L) 27.0 - 33.0 pg [facility] Comment:{MCH {[id number]) MCHC 31.0(L) 32.0 - 36.0 g/dL [facility] Comment:{MCHC {[id number]) RDW 14.6 11.0 - 15.0 % [facility] Comment:{RDW {[id number]) PLT 367 140 - 400 Thousand/ uL [facility] Comment:{PLATELET COUNT {[id number]) MPV 7.3(L) 7.5 - 11.5 fL [facility] Comment:{MPV {[id number]) Neutrophils # 5692 1500 - 7800 cells/uL [facility] Comment:{ABSOLUTE NEUTROPHIL S {[id number]) Lymphocytes # 3964(H) 850 - 3900 cells/uL [facility] Comment:{ABSOLUTE LYMPHOCYTE S {[id number]) Monocytes # 832 200 - 950 cells/uL [facility] Comment:{ABSOLUTE MONOCYTES {[id number]) Eosinophils # 248 15 - 500 cells/uL [facility] Comment:{ABSOLUTE EOSINOPHIL S {[id number]) Basophils # 65 0 - 200 cells/uL [facility] Comment:{ABSOLUTE BASOPHILS {[id number]) Neutrophils % 52.7 % [facility] Comment:{NEUTROPHILS {[id number]) Lymphocytes % 36.7 % [facility] Comment:{LYMPHOCYTES {[id number]) Monocytes % 7.7 % [facility] Comment:{MONOCYTES {[id number]) Eosinophils % 2.3 % [facility] Comment:{EOSINOPHILS {[id number]) Basophils % 0.6 % [facility] Comment:{BASOPHILS {[id number]) 10/28/2012 2:15 PM EDT 10/28/2012 11:59 PM EDT Narrative Resulting Agency Comment [id number] us Abel Fierro MD LAB SAME DAY RESULT Final Resul t [facility] [address] [place] [address] documented in this encounter Visit Diagnoses Diagnosis Rheumatoid arthritis(714.0) Rheumatoid arthritis documented in this encounter Care Teams Silver Spray Worker Relationship Specialty Start Date End Date Alberto Pacheco [address] [place] [address] PCP - General 07/19/08 05/24/13 Charly Saxena [facility] [address] [place] [address] PCP - General Internal Medicine 05/25/13 07/16/17 Cheryl Calderon MD [facility] Adult Medicine [address] [place] [address] PCP - General Internal Medicine 07/17/17 documented as of this encounter
--- OUTSIDE RECORDS SUMMARY | 2024-08-28 09:49 | XMS_ITS | Encounter Summary ---
Author Organization [facility] Address [address] [place] [address] Care Team Providers Care Dinkey Locomotive Operator Name Role Phone Cheryl Calderon MD Primary Care Provider [phone] Encounter Details Date Type Department Care Team (Late st Contact Info) Description 11/18/2018 Orders Only [facility] Hematology/Oncology 1 [facility] [address] [place] [phone] Liliana Calderon, JULI [address] [place] [address] Social History Tobacco Use Types Packs/Day Years [...] 12:14 AM EDT Narrative Resulting Agency Comment [id number] Liliana Calderon NP LABORATORY Final Result Performing Organization Address [facility] Co de Phone Number [facility] [address] [place] [address] * (ABNORMAL) FERRITIN (11/18/2018 3:38 PM EDT) Ferritin 634(H) 16 - 288 ng/mL [facility] 11/18/2018 3:38 PM EDT 11/19/2018 12:14 AM EDT Narrative Resulting Agency Comment [id number] Liliana Calderon NP LABORATORY Final Result Performing Organization Address City/[facility] Co de Phone Number [facility] [address] [place] [address] * LACTATE DEHYDROGENASE (LDH), SERUM (11/18/2018 3:38 PM EDT) Lactate dehydrogenase 156 120 - 250 U/L [facility] 11/18/2018 3:38 PM EDT 11/19/2018 12:14 AM EDT Narrative Resulting Agency Comment [id number] Liliana Calderon NP LABORATORY Final Result Performing Organization Address City/[facility]/ZIP Co de Phone Number [facility] [address] [place] [address] * (ABNORMAL) CBC INCLUDES DIFFERENTIAL AND PLATELET [...] 12:14 AM EDT Narrative Resulting Agency Comment [id number] Liliana Calderon ADVERTISEMENT COMPOSITOR LAB SAME DAY RESULT Final Result [facility] [address] [place] [address] documented in this encounter Visit Diagnoses Diagnosis Leukopenia, unspecified type Iron deficiency Iron deficiency anemia, unspecified documented in this encounter Care Teams Dinkey Locomotive Operator Relationship Specialty Start Date End Date Cheryl Calderon MD [facility] Adult Medicine [address] [place] [address] PCP - General Internal Medicine 07/17/17 documented as of this encounter
--- OUTSIDE RECORDS SUMMARY | 2024-08-28 09:49 | XMS_ITS | Encounter Summary ---
Author Organization [facility] Address [address] [place] [address] Care Team Providers Care Registered Nurse Midwife Name Role Phone Cheryl Calderon MD Primary Care Provider [phone] Encounter Details Date Type Department Care Team (Late st Contact Info) Description 12/23/2018 Orders Only [facility] Hematology/Oncology 1 [facility] [address] [place] [phone] Liliana Calderon, JULI [address] [place] [address] Social History Tobacco Use Types Packs/Day Years [...] of this encounter Procedures * Due to [place] state law, this organization might not be [...] in this encounter Results * Due to [place] state law, this organization might not be [...] a test for HCV RNA (test code 40175) is suggested. For additional information please refer to http://education.Respiratory Motion/faq/FQU05c0 (This link is being provided for informational/ educational purposes only.) 12/23/2018 11:3 2 AM EDT 12/23/2018 11:23 PM EDT Narrative Resulting Agency Comment [id number] Liliana Calderon NP LABORATORY Final Result [facility] [address] [place] [address] * HEPATITIS B CORE ANTIBODY, TOTAL, SERUM (12/23/2018 11:32 AM EDT) Hepatitis B virus core Ab NON-REACTI VE NON-REACT MANOLO [facility] 12/23/2018 11:3 2 AM EDT 12/23/2018 11:23 PM EDT Narrative Resulting Agency Comment [id number] Liliana Nehemiasunder CLIMATE CHANGE ANALYST LABORATORY Final Result Performing Organization Address [facility] Co de Phone Number [facility] [address] [place] [address] * HEPATITIS B SURFACE ANTIGEN (12/23/2018 11:32 AM EDT) Hepatitis B virus surface Ag NON-REACTI VE NON-REACT MANOLO [facility] 12/23/2018 11:3 2 AM EDT 12/23/2018 11:23 PM EDT Narrative Resulting Agency Comment [id number] Liliana Nehemiasunder CLIMATE CHANGE ANALYST LABORATORY Final Result Performing Organization Address [facility] de Phone Number [facility] [address] [place] [address] * (ABNORMAL) HEPATIC FUNCTION PANEL (ALT,AST,ALK PH,BILI'S,TP,ALB) (12/23/2018 11:32 AM EDT) Pathologist [facility] Protein Total (Serum) 5.8(L) 6.1 - 8.1 [...] 11:23 PM EDT Narrative Resulting Agency Comment [id number] Liliana Nehemiasunder CLIMATE CHANGE ANALYST LABORATORY Final Result Performing Organization Address [facility] Co de Phone Number [facility] [address] [place] [address] * CBC INCLUDES DIFFERENTIAL AND PLATELET COUNT [...] 11:23 PM EDT Narrative Resulting Agency Comment [id number] Liliana Calderon CLIMATE CHANGE ANALYST LAB SAME DAY RESULT Final Result Performing Organization Address City/State/[facility] Co de Phone Number [facility] [address] [place] [address] documented in this encounter Visit Diagnoses Diagnosis Rheumatoid arthritis involving multiple sites with positive rheumatoid factor (HCC) documented in this encounter Care Teams Registered Nurse Midwife Relationship Specialty Start Date End Date Cheryl Calderon MD [facility] Adult Medicine [address] [place] [address] PCP - General Internal Medicine 07/17/17 documented as of this encounter
--- OUTSIDE RECORDS SUMMARY | 2024-08-28 09:49 | XMS_ITS | Encounter Summary ---
Author Organization [facility] Address [address] [place] [address] Care Team Providers Care Floor Cleaner Name Role Phone Cheryl Calderon MD Primary Care Provider [phone] Reason for Visit * Reason Comments E-prescribing Refill Request Encounter Details Date Type Department Care Team (Late st Contact Info) Description 06/08/2019 Refill [facility]. Rheumatology [address] [place] [phone] Melanie Aguirre MD [address] [place] [address] E-prescribing Refill Request Social History Tobacco Use [...] encounter Miscellaneous Notes * Telephone Encounter - Caern Bellamy - 06/10/2019 11:31 AM EST Any [...] Phone 06/19/19 1:45 PM Melanie Aguirre MD [facility] Rheumatology [phone] 08/04/19 2:40 PM Liliana Calderon NP [facility] Hematology/Oncology [phone] 11/10/19 1:30 PM Lyndsay Lopez MD [facility] Ophthalmology [phone] Pertinent lab results: Lab Results Component Value [...] ??? Elbow pain 06/03/2012 ??? Rheumatoid arthritis(714.0) ([facility]) 09/29/2010 Followed by rheumatology treated with methotrexate, [...] on filedocumented in this encounter Care Teams Floor Cleaner Relationship Specialty Start Date End Date Cheryl Calderon MD [facility] Adult Medicine [address] [place] [address] PCP - General Internal Medicine 07/17/17 documented as of this encounter
--- OUTSIDE RECORDS SUMMARY | 2024-08-28 09:49 | XMS_ITS | Encounter Summary ---
Author Organization [facility] Address [address] [place] [address] Care Team Providers Care Guitar Repairer Name Role Phone Charly Saxena Primary Care Provider [phone] Cheryl Calderon MD Primary Care Provider [phone] Encounter Details Date Type Department Care Team (Late st Contact Info) Description 05/25/2013 Orders Only [facility] Rheumatology [address] [place] [address] Abel Fierro MD [address] [place] [address] Social History Tobacco Use Types Packs/Day Years [...] <0.80 mg/dL [facility] Comment: {C-REACTIVE PROTEIN {[id number]) Please be advised that patients taking Carboxypenicillins may exhibit falsely decreased C-Reactive Protein levels due to an analytical interference in this assay. 05/25/2013 3:30 PM EST 05/25/2013 6:52 PM EST Narrative Resulting Agency Comment [id number] us Abel Fierro MD LABORATORY Final Result Performing Organization Address [facility] de Phone Number [facility] [address] [place] [address] * (ABNORMAL) ERYTHROCYTE SEDIMENTATION RATE (ESR), SHAJIREN (05/25/2013 3:30 PM EST) Sedimentation Rate [place] (ESR) 32(H) < OR = 30 mm/h [facility] Comment:{SED RATE BY MODIFIE D KUNAL {[id number]) 05/25/2013 3:30 PM EST 05/25/2013 6:52 PM EST Narrative Resulting Agency Comment [id number] us Abel Fierro MD LAB SAME DAY RESULT Final Resul t Performing Organization Address [facility] de Phone Number [facility] [address] [place] [address] documented in this encounter Visit Diagnoses Diagnosis Rheumatoid arthritis(714.0) Rheumatoid arthritis documented in this encounter Care Teams Guitar Repairer Relationship Specialty Start Date End Date Charly Saxena [facility] [place], [place] [id number] PCP - General Internal Medicine 05/25/13 07/16/17 Cheryl Calderon MD [facility] Adult Medicine [address] [place] [address] [place] [address] PCP - General Internal Medicine 07/17/17 documented as of this encounter
--- OUTSIDE RECORDS SUMMARY | 2024-08-28 09:49 | XMS_ITS | Encounter Summary ---
Author Organization [facility] Address [address] [place] [address] Care Team Providers Care Log Sorter Name Role Phone Charly Saxena Primary Care Provider [phone] Cheryl Calderon MD Primary Care Provider [phone] Encounter Details Date Type Department Care Team (Late st Contact Info) Description 02/10/2015 Orders Only [facility] Rheumatology [address] [place] [address] Abel Fierro MD [address] [place] [address] Social History Tobacco Use Types Packs/Day Years [...] EDT) C reactive protein 0.45 <0.80 mg/dL [facility] Comment: {C-REACTIVE PROTEIN {[id number]) Please be advised that patients taking Carboxypenicillins may exhibit falsely decreased C-Reactive Protein levels due to an analytical interference in this assay. 02/10/2015 12:2 9 PM EDT 02/10/2015 9:25 PM EDT Narrative Resulting Agency Comment [id number] us Abel Fierro MD LABORATORY Final Result Performing Organization Address [facility] Co de Phone Number [facility] [address] [place] [address] * ERYTHROCYTE SEDIMENTATION RATE (ESR), WESTERGREN (02/10/2015 12:29 PM EDT) Sedimentation Rate Westegren (ESR) 6 < OR = 30 mm/h [facility] Comment:{SED RATE BY MODIFIE D WESTERGREN {[id number]) 02/10/2015 12:2 9 PM EDT 02/10/2015 9:25 PM EDT Narrative Resulting Agency Comment [id number] us Abel Fierro MD LAB SAME DAY RESULT Final Resul t Performing Organization Address [facility] de Phone Number [facility] [address] [place] [address] * CREATININE WITH GLOMERULAR FILTRATION RATE, ESTIMATED (EGFR) (02/10/2015 12:29 PM EDT) Creatinine 0.80 0.50 - 0.99 mg/dL [facility] Comment: {CREATININE {[id number]) For patients >49 years of age, the reference limit for Creatinine is approximately 13% higher for people identified as -Tristanian. GFR 80 > OR = 60 mL/min/1. 73m2 [facility] Comment:{eGFR NON-AFR. AMERI CAN {[id number]) GFR () 93 > OR = 60 mL/min/1. 73m2 [facility] Comment:{eGFR AMERIC AN {[id number]) 02/10/2015 12:2 9 PM EDT 02/10/2015 9:25 [...] needs for GFR calculation. Resulting Agency Comment [id number] Abel Fierro MD LAB SAME DAY RESULT Final Resul t Performing Organization Address [facility] de Phone Number [facility] [address] [place] [address] * (ABNORMAL) ALANINE AMINOTRANSFERASE (ALT), SERUM (02/10/2015 12:29 PM EDT) ALT (SGPT) 37(H) 6 - 29 U/L [facility] Comment:{ALT {[id number]) 02/10/2015 12:2 9 PM EDT 02/10/2015 9:25 PM EDT Narrative Resulting Agency Comment [id number] Abel Fierro MD LAB SAME DAY RESULT Final Resul t Performing Organization Address [facility] de Phone Number [facility] [address] [place] [address] * ASPARTATE AMINOTRANSFERASE (AST), SERUM (02/10/2015 12:29 PM EDT) AST (SGOT) 26 10 - 35 U/L [facility] Comment:{AST {[id number]) 02/10/2015 12:2 9 PM EDT 02/10/2015 9:25 PM EDT Narrative Resulting Agency Comment [id number] Abel Fierro MD LAB SAME DAY RESULT Final Resul t Performing Organization Address [facility] de Phone Number [facility] [address] [place] [address] * (ABNORMAL) CBC INCLUDES DIFFERENTIAL AND PLATELET COUNT (02/10/2015 12:29 PM EDT) WBC 10.5 3.8 - 10.8 Thousand/ uL [facility] Comment:{WHITE BLOOD CELL CO UNT {[id number]) RBC 6.07(H) 3.80 - 5.10 Million/u L [facility] Comment:{RED BLOOD CELL COUN T {[id number]) Hemoglobin 15.7(H) 11.7 - 15.5 g/dL [facility] Comment:{HEMOGLOBIN {[id number]) Hematocrit 48.6(H) 35.0 - 45.0 % [facility] Comment:{HEMATOCRIT {[id number]) MCV 80.1 80.0 - 100.0 fL [facility] Comment:{MCV {[id number]) MCH 25.8(L) 27.0 - 33.0 pg [facility] Comment:{MCH {[id number]) MCHC 32.2 32.0 - 36.0 g/dL [facility] Comment:{MCHC {[id number]) RDW 15.6(H) 11.0 - 15.0 % [facility] Comment:{RDW {[id number]) PLT 347 140 - 400 Thousand/ uL [facility] Comment:{PLATELET COUNT {[id number]) MPV 7.6 7.5 - 11.5 fL [facility] Comment:{MPV {[id number]) Neutrophils # 7455 1500 - 7800 cells/uL [facility] Comment:{ABSOLUTE NEUTROPHIL S {[id number]) Lymphocytes # 1932 850 - 3900 cells/uL [facility] Comment:{ABSOLUTE LYMPHOCYTE S {[id number]) Monocytes # 861 200 - 950 cells/uL [facility] Comment:{ABSOLUTE MONOCYTES {[id number]) Eosinophils # 221 15 - 500 cells/uL [facility] Comment:{ABSOLUTE EOSINOPHIL S {[id number]) Basophils # 32 0 - 200 cells/uL [facility] Comment:{ABSOLUTE BASOPHILS {[id number]) Neutrophils % 71.0 % [facility] Comment:{NEUTROPHILS {[id number]) Lymphocytes % 18.4 % [facility] Comment:{LYMPHOCYTES {[id number]) Monocytes % 8.2 % [facility] Comment:{MONOCYTES {[id number]) Eosinophils % 2.1 % [facility] Comment:{EOSINOPHILS {[id number]) Basophils % 0.3 % [facility] Comment:{BASOPHILS {[id number]) 02/10/2015 12:2 9 PM EDT 02/10/2015 9:25 PM EDT Narrative Resulting Agency Comment [id number] us Abel Fierro MD LAB SAME DAY RESULT Final Resul t [facility] [address] [place] [address] documented in this encounter Visit Diagnoses Diagnosis Rheumatoid arthritis involving both feet, unspecified rheumatoid factor presence (HCC) [M06.071, M06.072] documented in this encounter Care Teams Log Sorter Relationship Specialty Start Date End Date Charly Saxena [facility] [address] [place] [address] PCP - General Internal Medicine 05/25/13 07/16/17 Cheryl Calderon MD [facility] Medicine [address] [place] [address] PCP - General Internal Medicine 07/17/17 documented as of this encounter
--- OUTSIDE RECORDS SUMMARY | 2024-08-28 09:49 | XMS_ITS | Encounter Summary ---
Author Organization [facility] Address [address] [place] [address] Care Team Providers Care Lactation Consultant Name Role Phone Charly Saxena Primary Care Provider [phone] Cheryl Calderon MD Primary Care Provider [phone] Encounter Details Date Type Department Care Team (Late st Contact Info) Description 06/13/2015 Orders Only [facility] Rheumatology [address] [place] [address] Abel Fierro MD [address] [place] [address] Social History Tobacco Use Types Packs/Day Years [...] presence documented in this encounter Care Teams Lactation Consultant Relationship Specialty Start Date End Date Charly Saxena [facility] [place] [address] PCP - General Internal Medicine 05/25/13 07/16/17 Cheryl Calderon MD [facility] Adult Medicine [address] [place] [address] PCP - General Internal Medicine 07/17/17 documented as of this encounter
--- OUTSIDE RECORDS SUMMARY | 2024-08-28 09:49 | XMS_ITS | Encounter Summary ---
Author Organization [facility] Address [address] [place] [address] Care Team Providers Care Film Sorter Name Role Phone Ablerto Pacheco Primary Care Provider [phone] Charly Saxena Primary Care Provider [phone] Cheryl Calderon MD Primary Care Provider [phone] Encounter Details Date Type Department Care Team (Late st Contact Info) Description 08/05/2012 Orders Only [facility] Rheumatology [address] [place] [address] Abel Fierro MD [address] [place] [address] Social History Tobacco Use Types Packs/Day Years [...] - 1.05 mg/dL [facility] Comment: {CREATININE {[id number]) For patients >49 years of age, the reference limit for Creatinine is approximately 13% higher for people identified as -[place]er. GFR 82 > OR = 60 mL/min/1. 73m2 [facility] Comment:{eGFR NON-AFR. AMERI CAN {[id number]) GFR () 95 > OR = 60 mL/min/1. 73m2 [facility] Comment:{eGFR AMERIC AN {[id number]) 08/05/2012 12:5 3 PM EDT 08/05/2012 4:46 [...] needs for GFR calculation. Resulting Agency Comment [id number] us Abel Fierro MD LAB SAME DAY RESULT Final Resul t [facility] [address] [place] [address] * (ABNORMAL) CBC INCLUDES DIFFERENTIAL AND PLATELET COUNT (08/05/2012 12:53 PM EDT) WBC 7.8 3.8 - 10.8 Thousand/ uL [facility] Comment:{WHITE BLOOD CELL CO UNT {[id number]) RBC 5.22(H) 3.80 - 5.10 Million/u L [facility] Comment:{RED BLOOD CELL COUN T {[id number]) Hemoglobin 14.0 11.7 - 15.5 g/dL [facility] Comment:{HEMOGLOBIN {[id number]) Hematocrit 44.8 35.0 - 45.0 % [facility] Comment:{HEMATOCRIT {[id number]) MCV 85.8 80.0 - 100.0 fL [facility] Comment:{MCV {[id number]) MCH 26.9(L) 27.0 - 33.0 pg [facility] Comment:{MCH {[id number]) MCHC 31.4(L) 32.0 - 36.0 g/dL [facility] Comment:{MCHC {[id number]) RDW 15.9(H) 11.0 - 15.0 % [facility] Comment:{RDW {[id number]) PLT 305 140 - 400 Thousand/ uL [facility] Comment:{PLATELET COUNT {[id number]) MPV 8.0 7.5 - 11.5 fL [facility] Comment:{MPV {[id number]) Neutrophils # 3237 1500 - 7800 cells/uL [facility] Comment:{ABSOLUTE NEUTROPHIL S {[id number]) Lymphocytes # 3229 850 - 3900 cells/uL [facility] Comment:{ABSOLUTE LYMPHOCYTE S {[id number]) Monocytes # 1014(H) 200 - 950 cells/uL [facility] Comment:{ABSOLUTE MONOCYTES {[id number]) Eosinophils # 273 15 - 500 cells/uL [facility] Comment:{ABSOLUTE EOSINOPHIL S {[id number]) Basophils # 47 0 - 200 cells/uL [facility] Comment:{ABSOLUTE BASOPHILS {[id number]) Neutrophils % 41.5 % [facility] Comment:{NEUTROPHILS {[id number]) Lymphocytes % 41.4 % [facility] Comment:{LYMPHOCYTES {[id number]) Monocytes % 13.0 % [facility] Comment:{MONOCYTES {[id number]) Eosinophils % 3.5 % [facility] Comment:{EOSINOPHILS {[id number]) Basophils % 0.6 % [facility] Comment:{BASOPHILS {[id number]) 08/05/2012 12:5 3 PM EDT 08/05/2012 4:46 PM EDT Narrative Resulting Agency Comment [id number] us Abel Fierro MD LAB SAME DAY RESULT Final Resul t Performing Organization Address [facility] Co de Phone Number [facility] [address] [place] [address] * ALANINE AMINOTRANSFERASE (ALT), SERUM (08/05/2012 12:53 PM EDT) ALT (SGPT) 18 6 - 40 U/L [facility] Comment:{ALT {[id number]) 08/05/2012 12:5 3 PM EDT 08/05/2012 4:46 PM EDT Narrative Resulting Agency Comment [id number] us Abel Fierro MD LAB SAME DAY RESULT Final Resul t Performing Organization Address [facility] Co de Phone Number [facility] [address] [place] [address] * ASPARTATE AMINOTRANSFERASE (AST), SERUM (08/05/2012 12:53 PM EDT) AST (SGOT) 17 10 - 35 U/L [facility] Comment:{AST {[id number]) 08/05/2012 12:5 3 PM EDT 08/05/2012 4:46 PM EDT Narrative Resulting Agency Comment [id number] us Abel Fierro MD LAB SAME DAY RESULT Final Resul t Performing Organization Address [facility] Co de Phone Number [facility] [address] [place] [address] documented in this encounter Visit Diagnoses Diagnosis Rheumatoid arthritis(714.0) Rheumatoid arthritis documented in this encounter Care Teams Film Sorter Relationship Specialty Start Date End Date Alberto Pacheco [address] [place] [address] PCP - General 07/19/08 05/24/13 Charly Saxena [facility] [place] [address] PCP - General Internal Medicine 05/25/13 07/16/17 Cheryl Calderon MD [facility] Medicine [address] [place] [address] PCP - General Internal Medicine 07/17/17 documented as of this encounter
--- OUTSIDE RECORDS SUMMARY | 2024-08-28 09:49 | XMS_ITS | Encounter Summary ---
Author Organization [facility] Address [address] [place] [address] Care Team Providers Care Education Director Name Role Phone Charly Saxena Primary Care Provider [phone] Cheryl Calderon MD Primary Care Provider [phone] Encounter Details Date Type Department Care Team (Late st Contact Info) Description 05/25/2013 Orders Only [facility] Rheumatology [address] [place] [address] Abel Fierro MD [address] [place] [address] Social History Tobacco Use Types Packs/Day Years [...] - 1.05 mg/dL [facility] Comment: {CREATININE {[id number]) For patients >49 years of age, the reference limit for Creatinine is approximately 13% higher for people identified as -Yemeni. GFR 70 > OR = 60 mL/min/1. 73m2 [facility] Comment:{eGFR NON-AFR. AMERI CAN {[id number]) GFR () 82 > OR = 60 mL/min/1. 73m2 [facility] Comment:{eGFR AMERIC AN {[id number]) 05/25/2013 2:20 PM EST 05/25/2013 6:51 PM [...] needs for GFR calculation. Resulting Agency Comment [id number] us Abel Fierro MD LAB SAME DAY RESULT Final Resul t [facility] [address] [place] [address] * (ABNORMAL) CBC INCLUDES DIFFERENTIAL AND PLATELET COUNT (05/25/2013 2:20 PM EST) WBC 14.5(H) 3.8 - 10.8 Thousand/ uL [facility] Comment:{WHITE BLOOD CELL CO UNT {[id number]) RBC 5.63(H) 3.80 - 5.10 Million/u L [facility] Comment:{RED BLOOD CELL COUN T {[id number]) Hemoglobin 14.6 11.7 - 15.5 g/dL [facility] Comment:{HEMOGLOBIN {[id number]) Hematocrit 46.7(H) 35.0 - 45.0 % [facility] Comment:{HEMATOCRIT {[id number]) MCV 82.8 80.0 - 100.0 fL [facility] Comment:{MCV {[id number]) MCH 26.0(L) 27.0 - 33.0 pg [facility] Comment:{MCH {[id number]) MCHC 31.4(L) 32.0 - 36.0 g/dL [facility] Comment:{MCHC {[id number]) RDW 15.0 11.0 - 15.0 % [facility] Comment:{RDW {[id number]) PLT 395 140 - 400 Thousand/ uL [facility] Comment:{PLATELET COUNT {[id number]) MPV 7.4(L) 7.5 - 11.5 fL [facility] Comment:{MPV {[id number]) Neutrophils # 82531(H) 1500 - 7800 cells/uL [facility] Comment:{ABSOLUTE NEUTROPHIL S {[id number]) Lymphocytes # 1291 850 - 3900 cells/uL [facility] Comment:{ABSOLUTE LYMPHOCYTE S {[id number]) Monocytes # 595 200 - 950 cells/uL [facility] Comment:{ABSOLUTE MONOCYTES {[id number]) Eosinophils # 102 15 - 500 cells/uL [facility] Comment:{ABSOLUTE EOSINOPHIL S {[id number]) Basophils # 29 0 - 200 cells/uL [facility] Comment:{ABSOLUTE BASOPHILS {[id number]) Neutrophils % 86.1 % [facility] Comment:{NEUTROPHILS {[id number]) Lymphocytes % 8.9 % [facility] Comment:{LYMPHOCYTES {[id number]) Monocytes % 4.1 % [facility] Comment:{MONOCYTES {[id number]) Eosinophils % 0.7 % [facility] Comment:{EOSINOPHILS {[id number]) Basophils % 0.2 % [facility] Comment:{BASOPHILS {[id number]) 05/25/2013 2:20 PM EST 05/25/2013 6:51 PM EST Narrative Resulting Agency Comment [id number] us Abel Fierro MD LAB SAME DAY RESULT Final Resul t Performing Organization Address City/[facility] Co de Phone Number [facility] [address] [place] [address] * ALANINE AMINOTRANSFERASE (ALT), SERUM (05/25/2013 2:20 PM EST) ALT (SGPT) 21 6 - 29 U/L [facility] Comment:{ALT {[id number]) 05/25/2013 2:20 PM EST 05/25/2013 6:51 PM EST Narrative Resulting Agency Comment [id number] us Abel Fierro MD LAB SAME DAY RESULT Final Resul t Performing Organization Address [facility] de Phone Number [facility] [address] [place] [address] * ASPARTATE AMINOTRANSFERASE (AST), SERUM (05/25/2013 2:20 PM EST) AST (SGOT) 21 10 - 35 U/L [facility] Comment:{AST {[id number]) 05/25/2013 2:20 PM EST 05/25/2013 6:51 PM EST Narrative Resulting Agency Comment [id number] Abel Fierro MD LAB SAME DAY RESULT Final Resul t Performing Organization Address [facility] de Phone Number [facility] [address] [place] [address] documented in this encounter Visit Diagnoses Diagnosis Rheumatoid arthritis(714.0) Rheumatoid arthritis documented in this encounter Care Teams Education Director Relationship Specialty Start Date End Date Charly Saxena [facility] [address] [place] [address] PCP - General Internal Medicine 05/25/13 07/16/17 Cheryl Calderon MD [facility] Medicine [address] [place] [address] PCP - General Internal Medicine 07/17/17 documented as of this encounter
--- OUTSIDE RECORDS SUMMARY | 2024-08-28 09:49 | XMS_ITS | Encounter Summary ---
Author Organization [facility] Address [address] [place] [address] Care Team Providers Care Drapery Hand Name Role Phone Charly Saxena Primary Care Provider [phone] Cheryl Calderon MD Primary Care Provider [phone] Encounter Details Date Type Department Care Team (Late st Contact Info) Description 05/25/2013 Orders Only [facility] Rheumatology [address] [place] [address] Abel Fierro MD [address] [place] [address] Social History Tobacco Use Types Packs/Day Years [...] <0.80 mg/dL [facility] Comment: {C-REACTIVE PROTEIN {[id number]) Please be advised that patients taking Carboxypenicillins may exhibit falsely decreased C-Reactive Protein levels due to an analytical interference in this assay. 05/25/2013 3:30 PM EST 05/25/2013 6:52 PM EST Narrative Resulting Agency Comment [id number] us Abel Fierro MD LABORATORY Final Result Performing Organization Address City/[facility] Co de Phone Number [facility] [address] [place] [address] * (ABNORMAL) ERYTHROCYTE SEDIMENTATION RATE (ESR), KUNAL (05/25/2013 3:30 PM EST) Sedimentation Rate Westegren (ESR) 32(H) < OR = 30 mm/h [facility] Comment:{SED RATE BY JONATHAN SYED {[id number]) 05/25/2013 3:30 PM EST 05/25/2013 6:52 PM EST Narrative Resulting Agency Comment [id number] us Abel Fierro MD LAB SAME DAY RESULT Final Resul t Performing Organization Address [facility] Co de Phone Number [facility] [address] [place] [address] documented in this encounter Visit Diagnoses Diagnosis Rheumatoid arthritis(714.0)- Primary Rheumatoid arthritis documented in this encounter Care Teams Drapery Hand Relationship Specialty Start Date End Date Charly Saxena [facility] [address] [place] [address] PCP - General Internal Medicine 05/25/13 07/16/17 Cheryl Calderon MD [facility] Medicine [address] [place] [address] PCP - General Internal Medicine 07/17/17 documented as of this encounter
--- OUTSIDE RECORDS SUMMARY | 2024-08-28 09:49 | XMS_ITS | Encounter Summary ---
Author Organization [facility] Address [address] [place] [address] Care Team Providers Care Hotel Custodian Name Role Phone Alberto Pacheco Primary Care Provider [phone] Unknown Pcp, Non [facility]mg Primary Care Provider Unava ilCharly Antoine Primary Care Provider [phone] Charly Saxena Primary Care Provider Cheryl Calderon MD Primary Care Provider [phone] Encounter Details Date Type Department Care Team (Late st Contact Info) Description 03/14/2006 Orders Only [facility] Rheumatology [address] [place] [address] Nikkie Moss, CARDIAC NURSE PRACTITIONER [address] [place], [place] [phone] Social History Tobacco Use Types Packs/Day Years [...] on filedocumented in this encounter Care Teams Hotel Custodian Relationship Specialty Start Date End Date Alberto Pacheco [address] [place] [address] PCP - General 07/19/08 05/24/13 Unknown Pcp, Non Rmg PCP - General 06/30/08 07/18/08 Charly Saxena [facility] [address] [place] [address] PCP - General 01/18/06 06/29/08 Charly Saxena [facility] [address] [place] [address] PCP - General Internal Medicine 05/25/13 07/16/17 Cheryl Calderon MD [facility] Medicine [address] [place] [address] PCP - General Internal Medicine 07/17/17 documented as of this encounter
--- OUTSIDE RECORDS SUMMARY | 2024-08-28 09:49 | XMS_ITS | Encounter Summary ---
Author Organization [facility] Address [address] [place] [address] Care Team Providers Care Coding Compliance Auditor Name Role Phone Charly Saxena Primary Care Provider [phone] Cheryl Calderon MD Primary Care Provider [phone] Encounter Details Date Type Department Care Team (Late st Contact Info) Description 10/15/2013 Orders Only [facility] Rheumatology [address] [place] [address] Abel Fierro MD [address] [place] [address] Social History Tobacco Use Types Packs/Day Years [...] arthritis documented in this encounter Care Teams Coding Compliance Auditor Relationship Specialty Start Date End Date Charly Saxena [facility] [address] [place] [address] PCP - General Internal Medicine 05/25/13 07/16/[address] [facility] Adult Medicine [address] [place] [address] PCP - General Internal Medicine 07/17/17 documented as of this encounter
--- OUTSIDE RECORDS SUMMARY | 2024-08-28 09:49 | XMS_ITS | Encounter Summary ---
Author Organization [facility] Address [address] [place] [address] Care Team Providers Care Executive Chairman Of The Board Name Role Phone Alberto Pacheco Primary Care Provider [phone] Charly Saxena Primary Care Provider [phone] Cheryl Calderon MD Primary Care Provider [phone] Reason for Visit * Reason Comments E-prescribing Refill Request Encounter Details Date Type Department Care Team (Late st Contact Info) Description 05/11/2013 Refill [facility] Rheumatology [address] [place] [address] Anival Bales MD E-prescribing Refill Request Social [...] of her nearly 4-year-old grandson H[place] in [place]. Next OV: Future Appointments Date Time Provider [...] on filedocumented in this encounter Care Teams Executive Chairman Of The Board Relationship Specialty Start Date End Date Alberto Pacheco [address] [place] [address] PCP - General 07/19/08 05/24/13 Charly Saxena [facility] [address] [place] [address] PCP - General Internal Medicine 05/25/13 07/16/17 Cheryl Calderon MD [facility] Adult Medicine [address] [place] [address] PCP - General Internal Medicine 07/17/17 documented as of this encounter
--- OUTSIDE RECORDS SUMMARY | 2024-08-28 09:49 | XMS_ITS | Encounter Summary ---
Author Organization [facility] Address [address] [place] [address] Care Team Providers Care Social Security Benefits Interviewer Name Role Phone Cheryl Calderon MD Primary Care Provider [phone] Encounter Details Date Type Department Care Team (Late st Contact Info) Description 07/15/2018 Orders Only [facility]. Rheumatology [address] [place] [phone] Melanie Aguirre MD [address] [place] [address] Social History Tobacco Use Types Packs/Day Years [...] 12:27 AM EDT Narrative Resulting Agency Comment [id number] Melanie Aguirre MD LABORATORY Final Result Performing Organization Address [facility] Co de Phone Number [facility] [address] [place] [address] * (ABNORMAL) ERYTHROCYTE SEDIMENTATION RATE (ESR), WESTERGREN (07/15/2018 4:34 PM EDT) Sedimentation Rate [place]ren (ESR) 50(H) < OR = 30 mm/h [facility] 07/15/2018 4:34 PM EDT 07/16/2018 12:27 AM EDT Narrative Resulting Agency Comment [id number] us Melanie Aguirre MD LAB SAME DAY RESULT Final Result Performing Organization Address [facility] Co de Phone Number [facility] [address] [place] [address] * (ABNORMAL) COMPREHENSIVE METABOLIC PANEL WITH GFR [...] higher for people identified as -Vietnamese. EGFR 95 > OR = 60 mL/min/1 [...] MD LABORATORY Final Result [facility] [address] [place] [address] * (ABNORMAL) CBC INCLUDES DIFFERENTIAL AND PLATELET [...] 12:27 AM EDT Narrative Resulting Agency Comment [id number] Melanie Aguirre MD LAB SAME DAY RESULT Final Result Performing Organization Address City/State/[facility] Co de Phone Number [facility] [address] [place] [address] documented in this encounter Visit Diagnoses Diagnosis Rheumatoid arthritis involving multiple sites with positive rheumatoid factor (HCC) documented in this encounter Care Teams Social Security Benefits Interviewer Relationship Specialty Start Date End Date Cheryl Calderon MD [facility] Adult Medicine [address] [place] [address] PCP - General Internal Medicine 07/17/17 documented as of this encounter
--- OUTSIDE RECORDS SUMMARY | 2024-08-28 09:49 | XMS_ITS | Encounter Summary ---
Author Organization [facility] Address [address] [place] [address] Care Team Providers Care Mash Tub Cooker Name Role Phone Alberto Pacheco Primary Care Provider [phone] Charly Saxena Primary Care Provider [phone] Cheryl Calderon MD Primary Care Provider [phone] Encounter Details Date Type Department Care Team (Late st Contact Info) Description 01/23/2013 Orders Only [facility] Rheumatology [address] [place] [phone] Abel Fierro MD [address] [place] [address] Social History Tobacco Use Types Packs/Day Years [...] this encounter Procedures * Due to [place] state law, this organization might not [...] this encounter Results * Due to [place] state law, this organization might not be sharing negative HIV tests. * ERYTHROCYTE SEDIMENTATION RATE (ESR), SHAIJREN (01/23/2013 4:26 PM EDT) Sedimentation Rate [place] (ESR) 4 < OR = 30 mm/h [facility] Comment:{SED RATE BY MODIFIE D KUNAL {[id number]) 01/23/2013 4:26 PM EDT 01/23/2013 11:06 PM EDT Narrative Resulting Agency Comment [id number] us Abel Fierro MD LAB SAME DAY RESULT Final Resul t Performing Organization Address City/State/[facility] Co de Phone Number [facility] [address] [place] [address] * C-REACTIVE PROTEIN (CRP) - INFLAMMATION (01/23/2013 4:26 PM EDT) C reactive protein 0.49 <0.80 mg/dL [facility] Comment: {C-REACTIVE PROTEIN {[id number]) Please be advised that patients taking Carboxypenicillins may exhibit falsely decreased C-Reactive Protein levels due to an analytical interference in this assay. 01/23/2013 4:26 PM EDT 01/23/2013 11:06 PM EDT Narrative Resulting Agency Comment [id number] us Abel Fierro MD LABORATORY Final Result Performing Organization Address [facility] Co de Phone Number [facility] [address] [place] [address] * CREATININE WITH GLOMERULAR FILTRATION RATE, ESTIMATED (EGFR) (01/23/2013 4:26 PM EDT) Creatinine 0.81 0.50 - 1.05 mg/dL [facility] Comment: {CREATININE {[id number]) For patients >49 years of age, the reference limit for Creatinine is approximately 13% higher for people identified as -Luxembourger. GFR 80 > OR = 60 mL/min/1. 73m2 [facility] Comment:{eGFR NON-AFR. AMERI CAN {[id number]) GFR () 93 > OR = 60 mL/min/1. 73m2 [facility] Comment:{eGFR AMERIC AN {[id number]) 01/23/2013 4:26 PM EDT 01/23/2013 11:06 PM [...] needs for GFR calculation. Resulting Agency Comment [id number] us Abel Fierro MD LAB SAME DAY RESULT Final Resul t Performing Organization Address [facility] Co de Phone Number [facility] [address] [place] [address] * (ABNORMAL) CBC INCLUDES DIFFERENTIAL AND PLATELET COUNT (01/23/2013 4:26 PM EDT) WBC 7.3 3.8 - 10.8 Thousand/ uL [facility] Comment:{WHITE BLOOD CELL CO UNT {[id number]) RBC 5.80(H) 3.80 - 5.10 Million/u L [facility] Comment:{RED BLOOD CELL COUN T {[id number]) Hemoglobin 15.0 11.7 - 15.5 g/dL [facility] Comment:{HEMOGLOBIN {[id number]) Hematocrit 47.0(H) 35.0 - 45.0 % [facility] Comment:{HEMATOCRIT {[id number]) MCV 81.1 80.0 - 100.0 fL [facility] Comment:{MCV {[id number]) MCH 25.9(L) 27.0 - 33.0 pg [facility] Comment:{MCH {[id number]) MCHC 31.9(L) 32.0 - 36.0 g/dL [facility] Comment:{MCHC {[id number]) RDW 16.0(H) 11.0 - 15.0 % [facility] Comment:{RDW {[id number]) PLT 327 140 - 400 Thousand/ uL [facility] Comment:{PLATELET COUNT {[id number]) MPV 7.8 7.5 - 11.5 fL [facility] Comment:{MPV {[id number]) Neutrophils # 3548 1500 - 7800 cells/uL [facility] Comment:{ABSOLUTE NEUTROPHIL S {[id number]) Lymphocytes # 2745 850 - 3900 cells/uL [facility] Comment:{ABSOLUTE LYMPHOCYTE S {[id number]) Monocytes # 767 200 - 950 cells/uL [facility] Comment:{ABSOLUTE MONOCYTES {[id number]) Eosinophils # 190 15 - 500 cells/uL [facility] Comment:{ABSOLUTE EOSINOPHIL S {[id number]) Basophils # 51 0 - 200 cells/uL [facility] Comment:{ABSOLUTE BASOPHILS {[id number]) Neutrophils % 48.6 % [facility] Comment:{NEUTROPHILS {[id number]) Lymphocytes % 37.6 % [facility] Comment:{LYMPHOCYTES {[id number]) Monocytes % 10.5 % [facility] Comment:{MONOCYTES {[id number]) Eosinophils % 2.6 % [facility] Comment:{EOSINOPHILS {[id number]) Basophils % 0.7 % [facility] Comment:{BASOPHILS {[id number]) 01/23/2013 4:26 PM EDT 01/23/2013 11:06 PM EDT Narrative Resulting Agency Comment [id number] us Abel Fierro MD LAB SAME DAY RESULT Final Resul t Performing Organization Address [facility] de Phone Number [facility] [address] [place] [address] * ASPARTATE AMINOTRANSFERASE (AST), SERUM (01/23/2013 4:26 PM EDT) AST (SGOT) 22 10 - 35 U/L [facility] Comment:{AST {[id number]) 01/23/2013 4:26 PM EDT 01/23/2013 11:06 PM EDT Narrative Resulting Agency Comment [id number] us Abel Fierro MD LAB SAME DAY RESULT Final Resul t Performing Organization Address [facility] de Phone Number [facility] [address] [place] [address] * ALANINE AMINOTRANSFERASE (ALT), SERUM (01/23/2013 4:26 PM EDT) ALT (SGPT) 21 6 - 29 U/L [facility] Comment:{ALT {[id number]) 01/23/2013 4:26 PM EDT 01/23/2013 11:06 PM EDT Narrative Resulting Agency Comment [id number] Abel Fierro MD LAB SAME DAY RESULT Final Resul t Performing Organization Address [facility] de Phone Number [facility] [address] [place] [address] documented in this encounter Visit Diagnoses Diagnosis Rheumatoid arthritis(714.0) Rheumatoid arthritis documented in this encounter Care Teams Mash Tub Cooker Relationship Specialty Start Date End Date Alberto Pacheco [address] [place] [address] PCP - General 07/19/08 05/24/13 Charly Saxena [facility] [address] [place] [address] PCP - General Internal Medicine 05/25/13 07/16/17 Cheryl Calderon MD [facility] Medicine [address] [place] [address] PCP - General Internal Medicine 07/17/17 documented as of this encounter
--- OUTSIDE RECORDS SUMMARY | 2024-08-28 09:49 | XMS_ITS | Encounter Summary ---
Author Organization [facility] Address [address] [place] [address] Care Team Providers Care Mortgage Accounting Clerk Name Role Phone Charly Saxena Primary Care Provider [phone] Cheryl Calderon MD Primary Care Provider [phone] Encounter Details Date Type Department Care Team (Late st Contact Info) Description 07/29/2014 Orders Only [facility] Rheumatology [address] [place] [phone] Abel Fierro MD [address] [place] [address] Social History Tobacco Use Types Packs/Day Years [...] Routine 07/29/2014 11:19 AM EDT Rheumatoid arthritis(714.0) ([facility]) ERYTHROCYTE SEDIMENTATION RATE (ESR) Routine 07/29/2014 11:19 AM EDT Rheumatoid arthritis(714.0) ([facility]) CBC INCLUDES DIFFERENTIAL AND PLATELET COUNT Routine 07/29/2014 11:19 AM EDT Rheumatoid arthritis(714.0) ([facility]) ALANINE AMINOTRANSFERASE (ALT), SERUM Routine 07/29/2014 11:19 AM EDT Rheumatoid arthritis(714.0) ([facility]) ASPARTATE AMINOTRANSFERASE (AST), SERUM Routine 07/29/2014 11:19 AM EDT Rheumatoid arthritis(714.0) ([facility]) CREATININE WITH GLOMERULAR FILTRATION RATE, ESTIMATED (EGFR) Routine 07/29/2014 11:19 AM EDT Rheumatoid arthritis(714.0) ([facility]) documented in this encounter Results * Due to [place] state law, this organization might not be sharing negative HIV tests. * C-REACTIVE PROTEIN (CRP) - INFLAMMATION (07/29/2014 11:19 AM EDT) C reactive protein 0.22 <0.80 mg/dL [facility] Comment: {C-REACTIVE PROTEIN {[id number]) Please be advised that patients taking Carboxypenicillins may exhibit falsely decreased C-Reactive Protein levels due to an analytical interference in this assay. 07/29/2014 11:1 9 AM EDT 07/29/2014 4:29 PM EDT Narrative Resulting Agency Comment [id number] us Abel Fierro MD LABORATORY Final Result [facility] [address] [place] [address] * ERYTHROCYTE SEDIMENTATION RATE (ESR), KUNAL (07/29/2014 11:19 AM EDT) Sedimentation Rate [place] (ESR) 14 < OR = 30 mm/h [facility] Comment:{SED RATE BY MODIFIE D SHAJIREN {[id number]) 07/29/2014 11:1 9 AM EDT 07/29/2014 4:29 PM EDT Narrative Resulting Agency Comment [id number] us Abel Fierro MD LAB SAME DAY RESULT Final Resul t Performing Organization Address [facility] Co de Phone Number [facility] [address] [place] [address] * CREATININE WITH GLOMERULAR FILTRATION RATE, ESTIMATED (EGFR) (07/29/2014 11:19 AM EDT) Creatinine 0.93 0.50 - 1.05 mg/dL [facility] Comment: {CREATININE {[id number]) For patients >49 years of age, the reference limit for Creatinine is approximately 13% higher for people identified as -Macedonian. GFR 67 > OR = 60 mL/min/1. 73m2 [facility] Comment:{eGFR NON-AFR. AMERI CAN {[id number]) GFR () 78 > OR = 60 mL/min/1. 73m2 [facility] Comment:{eGFR AMERIC AN {[id number]) 07/29/2014 11:1 9 AM EDT 07/29/2014 4:29 [...] needs for GFR calculation. Resulting Agency Comment [id number] us Abel Fierro MD LAB SAME DAY RESULT Final Resul t Performing Organization Address City/[facility]/ZIP Co de Phone Number [facility] [address] [place] [address] * ALANINE AMINOTRANSFERASE (ALT), SERUM (07/29/2014 11:19 AM EDT) ALT (SGPT) 19 6 - 29 U/L [facility] Comment:{ALT {[id number]) 07/29/2014 11:1 9 AM EDT 07/29/2014 4:29 PM EDT Narrative Resulting Agency Comment [id number] us Abel Fierro MD LAB SAME DAY RESULT Final Resul t Performing Organization Address City/[facility] Co de Phone Number [facility] [address] [place] [address] * ASPARTATE AMINOTRANSFERASE (AST), SERUM (07/29/2014 11:19 AM EDT) AST (SGOT) 17 10 - 35 U/L [facility] Comment:{AST {[id number]) 07/29/2014 11:1 9 AM EDT 07/29/2014 4:29 PM EDT Narrative Resulting Agency Comment [id number] us Abel Fierro MD LAB SAME DAY RESULT Final Resul t Performing Organization Address [facility] de Phone Number [facility] [address] [place] [address] * (ABNORMAL) CBC INCLUDES DIFFERENTIAL AND PLATELET COUNT (07/29/2014 11:19 AM EDT) WBC 10.9(H) 3.8 - 10.8 Thousand/ uL [facility] Comment:{WHITE BLOOD CELL CO UNT {[id number]) RBC 5.63(H) 3.80 - 5.10 Million/u L [facility] Comment:{RED BLOOD CELL COUN T {[id number]) Hemoglobin 14.8 11.7 - 15.5 g/dL [facility] Comment:{HEMOGLOBIN {[id number]) Hematocrit 45.7(H) 35.0 - 45.0 % [facility] Comment:{HEMATOCRIT {[id number]) MCV 81.1 80.0 - 100.0 fL [facility] Comment:{MCV {[id number]) MCH 26.2(L) 27.0 - 33.0 pg [facility] Comment:{MCH {[id number]) MCHC 32.3 32.0 - 36.0 g/dL [facility] Comment:{MCHC {[id number]) RDW 15.5(H) 11.0 - 15.0 % [facility] Comment:{RDW {[id number]) PLT 331 140 - 400 Thousand/ uL [facility] Comment:{PLATELET COUNT {[id number]) MPV 7.3(L) 7.5 - 11.5 fL [facility] Comment:{MPV {[id number]) Neutrophils # 5875 1500 - 7800 cells/uL [facility] Comment:{ABSOLUTE NEUTROPHIL S {[id number]) Lymphocytes # 3706 850 - 3900 cells/uL [facility] Comment:{ABSOLUTE LYMPHOCYTE S {[id number]) Monocytes # 981(H) 200 - 950 cells/uL [facility] Comment:{ABSOLUTE MONOCYTES {[id number]) Eosinophils # 294 15 - 500 cells/uL [facility] Comment:{ABSOLUTE EOSINOPHIL S {[id number]) Basophils # 44 0 - 200 cells/uL [facility] Comment:{ABSOLUTE BASOPHILS {[id number]) Neutrophils % 53.9 % [facility] Comment:{NEUTROPHILS {[id number]) Lymphocytes % 34.0 % [facility] Comment:{LYMPHOCYTES {[id number]) Monocytes % 9.0 % [facility] Comment:{MONOCYTES {[id number]) Eosinophils % 2.7 % [facility] Comment:{EOSINOPHILS {[id number]) Basophils % 0.4 % [facility] Comment:{BASOPHILS {[id number]) 07/29/2014 11:1 9 AM EDT 07/29/2014 4:29 PM EDT Narrative Resulting Agency Comment [id number] us Abel Fierro MD LAB SAME DAY RESULT Final Resul t [facility] [address] [place] [address] documented in this encounter Visit Diagnoses Diagnosis Rheumatoid arthritis(714.0) Rheumatoid arthritis documented in this encounter Care Teams Mortgage Accounting Clerk Relationship Specialty Start Date End Date Charly Saxena [facility] [place], [place] [id number] PCP - General Internal Medicine 05/25/13 07/16/17 Cheryl Calderon MD [address] [address] PCP - General Internal Medicine 07/17/17 documented as of this encounter
--- OUTSIDE RECORDS SUMMARY | 2024-08-28 09:49 | XMS_ITS | Encounter Summary ---
Author Organization [facility] Address [address] [place] [address] Care Team Providers Care Machine Maintenance Mechanic Name Role Phone Cheryl Calderon MD Primary Care Provider [phone] Encounter Details Date Type Department Care Team (Late st Contact Info) Description 01/27/2019 Orders Only [facility] Hematology/Oncology [address] [facility] [address] [place] [id number] Liliana Calderon, JULI [address] [place] [address] Social History Tobacco Use Types Packs/Day Years [...] 1:19 AM EDT Narrative Resulting Agency Comment [id number] Liliana Calderon NP LAB SAME DAY RESULT Final Result Performing Organization Address [facility] Co de Phone Number [facility] [address] [place] [address] * (ABNORMAL) FERRITIN (01/27/2019 3:23 PM EDT) Ferritin 687(H) 16 - 288 ng/mL [facility] 01/27/2019 3:23 PM EDT 01/28/2019 1:19 AM EDT Narrative Resulting Agency Comment [id number] Liliana Erazo ACCOUNTING MANAGER CPA LABORATORY Final Result Performing Organization Address [facility] Co de Phone Number [facility] [address] [place] [address] * (ABNORMAL) IRON PROFILE (IRON/TIBC), SERUM (01/27/2019 3:23 PM EDT) Iron 14(L) 45 - 160 mcg/dL [facility] Iron binding capacity 223(L) 250 - 450 mcg/dL (calc) [facility] Iron saturation 6(L) 16 - 45 % (calc) [facility] 01/27/2019 3:23 PM EDT 01/28/2019 1:19 AM EDT Narrative Resulting Agency Comment [id number] Liliana Calderon ACCOUNTING MANAGER CPA LABORATORY Final Result [facility] [address] [place] [address] documented in this encounter Visit Diagnoses Diagnosis Iron deficiency Iron deficiency anemia, unspecified Leukopenia, unspecified type Rheumatoid arthritis involving multiple sites with positive rheumatoid factor (HCC) documented in this encounter Care Teams Machine Maintenance Mechanic Relationship Specialty Start Date End Date Cheryl Calderon MD [facility] Adult Medicine [address] [place] [address] PCP - General Internal Medicine 07/17/17 documented as of this encounter
--- OUTSIDE RECORDS SUMMARY | 2024-08-28 09:49 | XMS_ITS | Encounter Summary ---
Author Organization [facility] Address [address] [place] [address] Care Team Providers Care Dispensary Clerk Name Role Phone Cheryl Calderon MD Primary Care Provider [phone] Encounter Details Date Type Department Care Team (Late st Contact Info) Description 09/30/2018 Orders Only [facility]. Rheumatology [address] [place] [phone] Melanie Agiurre MD [address] [place] [address] Social History Tobacco Use Types Packs/Day Years [...] involving multiple sites with positive rheumatoid factor SM/COUNTERINTELLIGENCE ANALYST ANTIBODY Routine 09/30/2018 11:38 AM EDT Rheumatoid arthritis involving multiple sites with positive rheumatoid factor COUNTERINTELLIGENCE ANALYST ANTIBODY Routine 09/30/2018 11:38 AM EDT Rheumatoid [...] 9:04 PM EDT Narrative Resulting Agency Comment [id number] us Melanie Aguirre MD LABORATORY Final Result Performing Organization Address City/[facility] Co de Phone Number [facility] [address] [place] [address] * (ABNORMAL) SJOGRENS SYNDROME ANTIBODIES (SSA AND SSB) (09/30/2018 11:38 AM EDT) Sjogrens syndrome-A extractable nuclear Ab 4.1 POS(A) <1.0 NEG AI [facility] Sjogrens syndrome-B extractable nuclear Ab <1.0 NEG <1.0 NEG AI [facility] 09/30/2018 11:3 8 AM EDT 09/30/2018 9:04 PM EDT Narrative Resulting Agency Comment [id number] us Melanie Aguirre MD LABORATORY Final Result Performing Organization Address [facility] Co de Phone Number [facility] [address] [place] [address] * (ABNORMAL) ERYTHROCYTE SEDIMENTATION RATE (ESR), WESTERGREN (09/30/2018 11:38 AM EDT) Sedimentation Rate [place] (ESR) 45(H) < OR = 30 mm/h [facility] 09/30/2018 11:3 8 AM EDT 09/30/2018 9:04 PM EDT Narrative Resulting Agency Comment [id number] us Melanie Aguirre MD LAB SAME DAY RESULT Final Result Performing Organization Address [facility] Co de Phone Number [facility] [address] [place] [address] * COUNTERINTELLIGENCE ANALYST ANTIBODY (09/30/2018 11:38 AM EDT) Ribonucleoprotein extractable nuclear Ab <1.0 NEG <1.0 NEG AI [facility] 09/30/2018 11:3 8 AM EDT 09/30/2018 9:04 PM EDT Narrative Resulting Agency Comment [id number] Melanie Aguirre MD LABORATORY Final Result Performing Organization Address City/[facility]/ZIP Co de Phone Number [facility] [address] [place] [address] * QUANTIFERON-TB GOLD (09/30/2018 11:38 AM EDT) [facility] Quantiferon(R)-TB Gold Plus NEGATIVE NEGATIVE [facility] [...] T-lymphocytes. For additional information, please refer to https://education.[employer].Ariisto/faq/HMF760 (This link is being provided for informational/ educational purposes only.) 09/30/2018 11:3 8 AM EDT 09/30/2018 9:04 PM EDT Narrative Resulting Agency Comment [id number] Melanie Aguirre MD LABORATORY Final Result Performing Organization Address City/[facility]/ZIP Co de Phone Number [facility] [address] [place] [address] * HEPATITIS C AB WITH REFLEX TO [...] a test for HCV RNA (test code 84275) is suggested. For additional information please refer to http://education.[employer]/faq/SWM14b1 (This link is being provided for informational/ educational purposes only.) 09/30/2018 11:3 8 AM EDT 09/30/2018 9:04 PM EDT Narrative Resulting Agency Comment [id number] us Melanie Aguirre MD LABORATORY Final Result Performing Organization Address [facility] Co de Phone Number [facility] [address] [place] [address] * HEPATITIS B SURFACE ANTIGEN (09/30/2018 11:38 AM EDT) Pathologist [facility] Hepatitis B virus surface Ag NON-REACTI VE NON-REACT MANOLO [facility] 09/30/2018 11:3 8 AM EDT 09/30/2018 9:04 PM EDT Narrative Resulting Agency Comment [id number] us Melanie Aguirre MD LABORATORY Final Result Performing Organization Address [facility] de Phone Number [facility] [address] [place] [address] * (ABNORMAL) C-REACTIVE PROTEIN (CRP) - INFLAMMATION (09/30/2018 11:38 AM EDT) Pathologist [facility] C reactive protein 10.9(H) <8.0 mg/L [facility] 09/30/2018 11:3 8 AM EDT 09/30/2018 9:04 PM EDT Narrative Resulting Agency Comment [id number] us Melanie Aguirre MD LABORATORY Final Result Performing Organization Address [facility] Co de Phone Number [facility] [address] [place] [address] * (ABNORMAL) COMPREHENSIVE METABOLIC PANEL WITH GFR [...] higher for people identified as -[place] Islander. EGFR 77 > OR = 60 mL/min/1 [...] needs for GFR calculation. Resulting Agency Comment [id number] Melanie Aguirre MD LABORATORY Final Result Performing Organization Address [facility] de Phone Number [facility] [address] [place] [address] * (ABNORMAL) CYCLIC CITRULLINATEDPEPTIDE CCP AB IGG (09/30/2018 11:38 AM EDT) [facility] CCP Ab, IgG 45(H) UNITS [facility] Comment: Reference Range Negative: ?<20 Weak Positive: ? 20-39 Moderate Positive: ?? 40-59 Strong Positive: ? >59 09/30/2018 11:3 8 AM EDT 09/30/2018 9:04 PM EDT Narrative Resulting Agency Comment [id number] Melanie Aguirre MD LABORATORY Final Result Performing Organization Address [facility] de Phone Number [facility] [address] [place] [address] * (ABNORMAL) CBC INCLUDES DIFFERENTIAL AND PLATELET COUNT (09/30/2018 11:38 AM EDT) [facility] WBC 7.4 3.8 - 10.8 Thousand/u [...] 9:04 PM EDT Narrative Resulting Agency Comment [id number] Melanie Aguirre MD LAB SAME DAY RESULT Final Result Performing Organization Address [facility] Co de Phone Number [facility] [address] [place] [address] * SM/COUNTERINTELLIGENCE ANALYST ANTIBODY (09/30/2018 11:38 AM EDT) Arevalo extractable nuclear Ab+Ribonucleopr otein extractable nuclear Ab <1.0 NEG <1.0 NEG AI [facility] 09/30/2018 11:3 8 AM EDT 09/30/2018 9:04 PM EDT Narrative Resulting Agency Comment [id number] Melanie Aguirre MD LABORATORY Final Result Performing Organization Address [facility] de Phone Number [facility] [address] [place] [address] * DNA (DS) ANTIBODY (09/30/2018 11:38 AM EDT) Dna (DS) Antibody <1 IU/mL [facility] Comment: ? IU/mL ? Interpretation ? < or = 4 ?Negative ? 5-9 ? Indeterminate ? > or = 10 ?? Positive 09/30/2018 11:3 8 AM EDT 09/30/2018 9:04 PM EDT Narrative Resulting Agency Comment [id number] us Melanie Aguirre MD LABORATORY Final Result Performing Organization Address City/[facility] Co de Phone Number [facility] [address] [place] [address] * PASTORA IFA, W/ REFLEX TO TITER/PATTERN/COMPREHENSIVE [...] for interpretation of all antibodies in the [place], prevalence, and association with diseases at [email or web address] 09/30/2018 11:3 8 AM EDT 09/30/2018 9:04 PM EDT Narrative Resulting Agency Comment [id number] us Melanie Aguirre MD LABORATORY Final Result Performing Organization Address [facility] Co de Phone Number [facility] [address] [place] [address] documented in this encounter Visit Diagnoses Diagnosis Rheumatoid arthritis involving multiple sites with positive rheumatoid factor (HCC) documented in this encounter Care Teams Dispensary Clerk Relationship Specialty Start Date End Date Cheryl Calderon MD [facility] Adult Medicine [address] [place] [address] PCP - General Internal Medicine 07/17/17 documented as of this encounter
--- OUTSIDE RECORDS SUMMARY | 2024-08-28 09:49 | XMS_ITS | Encounter Summary ---
Author Organization [facility] Address [address] [place] [address] Care Team Providers Care Founder Name Role Phone Charly Saxena Primary Care Provider [phone] Cheryl Calderon MD Primary Care Provider [phone] Encounter Details Date Type Department Care Team (Late st Contact Info) Description 07/06/2015 Orders Only [facility] Rheumatology [address] [place] [address] Abel Fierro MD [address] [place] [address] Social History Tobacco Use Types Packs/Day Years [...] - 0.99 mg/dL [facility] Comment: {CREATININE {[id number]) For patients >49 years of age, the reference limit for Creatinine is approximately 13% higher for people identified as -Macedonian. GFR 69 > OR = 60 mL/min/1. 73m2 [facility] Comment:{eGFR NON-AFR. AMERI CAN {[id number]) GFR () 81 > OR = 60 mL/min/1. 73m2 [facility] Comment:{eGFR AMERIC AN {[id number]) 07/06/2015 1:10 PM EST 07/07/2015 12:26 AM [...] needs for GFR calculation. Resulting Agency Comment [id number] us Abel Fierro MD LAB SAME DAY RESULT Final Resul t Performing Organization Address [facility] Co de Phone Number [facility] [address] [place] [address] * (ABNORMAL) ALANINE AMINOTRANSFERASE (ALT), SERUM (07/06/2015 1:10 PM EST) ALT (SGPT) 35(H) 6 - 29 U/L [facility] Comment:{ALT {[id number]) 07/06/2015 1:10 PM EST 07/07/2015 12:26 AM EST Narrative Resulting Agency Comment [id number] Abel Fierro MD LAB SAME DAY RESULT Final Resul t Performing Organization Address [facility] de Phone Number [facility] [address] [place] [address] * ASPARTATE AMINOTRANSFERASE (AST), SERUM (07/06/2015 1:10 PM EST) AST (SGOT) 24 10 - 35 U/L [facility] Comment:{AST {[id number]) 07/06/2015 1:10 PM EST 07/07/2015 12:26 AM EST Narrative Resulting Agency Comment [id number] Abel Fierro MD LAB SAME DAY RESULT Final Resul t Performing Organization Address [facility] de Phone Number [facility] [address] [place] [address] * (ABNORMAL) CBC INCLUDES DIFFERENTIAL AND PLATELET COUNT (07/06/2015 1:10 PM EST) WBC 9.5 3.8 - 10.8 Thousand/ uL [facility] Comment:{WHITE BLOOD CELL CO UNT {[id number]) RBC 5.89(H) 3.80 - 5.10 Million/u L [facility] Comment:{RED BLOOD CELL COUN T {[id number]) Hemoglobin 15.7(H) 11.7 - 15.5 g/dL [facility] Comment:{HEMOGLOBIN {[id number]) Hematocrit 48.6(H) 35.0 - 45.0 % [facility] Comment:{HEMATOCRIT {[id number]) MCV 82.5 80.0 - 100.0 fL [facility] Comment:{MCV {[id number]) MCH 26.7(L) 27.0 - 33.0 pg [facility] Comment:{MCH {[id number]) MCHC 32.3 32.0 - 36.0 g/dL [facility] Comment:{MCHC {[id number]) RDW 15.9(H) 11.0 - 15.0 % [facility] Comment:{RDW {[id number]) PLT 356 140 - 400 Thousand/ uL [facility] Comment:{PLATELET COUNT {[id number]) MPV 7.5 7.5 - 11.5 fL [facility] Comment:{MPV {[id number]) Neutrophils # 7999(H) 1500 - 7800 cells/uL [facility] Comment:{ABSOLUTE NEUTROPHIL S {[id number]) Lymphocytes # 979 850 - 3900 cells/uL [facility] Comment:{ABSOLUTE LYMPHOCYTE S {[id number]) Monocytes # 428 200 - 950 cells/uL [facility] Comment:{ABSOLUTE MONOCYTES {[id number]) Eosinophils # 48 15 - 500 cells/uL [facility] Comment:{ABSOLUTE EOSINOPHIL S {[id number]) Basophils # 48 0 - 200 cells/uL [facility] Comment:{ABSOLUTE BASOPHILS {[id number]) Neutrophils % 84.2 % [facility] Comment:{NEUTROPHILS {[id number]) Lymphocytes % 10.3 % [facility] Comment:{LYMPHOCYTES {[id number]) Monocytes % 4.5 % [facility] Comment:{MONOCYTES {[id number]) Eosinophils % 0.5 % [facility] Comment:{EOSINOPHILS {[id number]) Basophils % 0.5 % [facility] Comment:{BASOPHILS {[id number]) 07/06/2015 1:10 PM EST 07/07/2015 12:26 AM EST Narrative Resulting Agency Comment [id number] us Abel Fierro MD LAB SAME DAY RESULT Final Resul t [facility] [address] [place] [address] documented in this encounter Visit Diagnoses Diagnosis Rheumatoid arthritis involving both feet, unspecified rheumatoid factor presence (HCC) [M06.071, M06.072] documented in this encounter Care Teams Founder Relationship Specialty Start Date End Date Charly Saxena [facility] [address] [place] [address] PCP - General Internal Medicine 05/25/13 07/16/17 Cheryl Calderon MD [facility] [address] [place] [address] PCP - General Internal Medicine 07/17/17 documented as of this encounter
--- OUTSIDE RECORDS SUMMARY | 2024-08-28 09:49 | XMS_ITS | Encounter Summary ---
Author Organization [facility] Address [address] [place] [address] Care Team Providers Care Vehicle Upholsterer Name Role Phone Charly Saxena Primary Care Provider [phone] Cheryl Calderon MD Primary Care Provider [phone] Encounter Details Date Type Department Care Team (Late st Contact Info) Description 01/18/2016 Orders Only [facility] Rheumatology [address] [place] [address] Abel Fierro MD [address] [place] [address] Social History Tobacco Use Types Packs/Day Years [...] - 0.99 mg/dL [facility] Comment: {CREATININE {[id number]) For patients >49 years of age, the reference limit for Creatinine is approximately 13% higher for people identified as -[place] Leonean. GFR 81 > OR = 60 mL/min/1. 73m2 [facility] Comment:{eGFR NON-AFR. AMERI CAN {[id number]) GFR () 94 > OR = 60 mL/min/1. 73m2 [facility] Comment:{eGFR AMERIC AN {[id number]) 01/18/2016 1:17 PM EDT 01/18/2016 9:39 PM [...] needs for GFR calculation. Resulting Agency Comment [id number] us Abel Fierro MD LAB SAME DAY RESULT Final Resul t [facility] [address] [place] [address] * (ABNORMAL) ALANINE AMINOTRANSFERASE (ALT), SERUM (01/18/2016 1:17 PM EDT) ALT (SGPT) 48(H) 6 - 29 U/L [facility] Comment:{ALT {[id number]) 01/18/2016 1:17 PM EDT 01/18/2016 9:39 PM EDT Narrative Resulting Agency Comment [id number] us Abel Fierro MD LAB SAME DAY RESULT Final Resul t Performing Organization Address City/[facility] Co de Phone Number [facility] [address] [place] [address] * ASPARTATE AMINOTRANSFERASE (AST), SERUM (01/18/2016 1:17 PM EDT) AST (SGOT) 27 10 - 35 U/L [facility] Comment:{AST {[id number]) 01/18/2016 1:17 PM EDT 01/18/2016 9:39 PM EDT Narrative Resulting Agency Comment [id number] us Abel Fierro MD LAB SAME DAY RESULT Final Resul t Performing Organization Address [facility] Co de Phone Number [facility] [address] [place] [address] * (ABNORMAL) CBC INCLUDES DIFFERENTIAL AND PLATELET COUNT (01/18/2016 1:17 PM EDT) WBC 11.4(H) 3.8 - 10.8 Thousand/ uL [facility] Comment:{WHITE BLOOD CELL CO UNT {[id number]) RBC 5.40(H) 3.80 - 5.10 Million/u L [facility] Comment:{RED BLOOD CELL COUN T {[id number]) Hemoglobin 14.3 11.7 - 15.5 g/dL [facility] Comment:{HEMOGLOBIN {[id number]) Hematocrit 45.8(H) 35.0 - 45.0 % [facility] Comment:{HEMATOCRIT {[id number]) MCV 84.8 80.0 - 100.0 fL [facility] Comment:{MCV {[id number]) MCH 26.5(L) 27.0 - 33.0 pg [facility] Comment:{MCH {[id number]) MCHC 31.3(L) 32.0 - 36.0 g/dL [facility] Comment:{MCHC {[id number]) RDW 16.5(H) 11.0 - 15.0 % [facility] Comment:{RDW {[id number]) PLT 289 140 - 400 Thousand/ uL [facility] Comment:{PLATELET COUNT {[id number]) MPV 8.4 7.5 - 11.5 fL [facility] Comment:{MPV {[id number]) Neutrophils # 9793(H) 1500 - 7800 cells/uL [facility] Comment:{ABSOLUTE NEUTROPHIL S {[id number]) Lymphocytes # 809(L) 850 - 3900 cells/uL [facility] Comment:{ABSOLUTE LYMPHOCYTE S {[id number]) Monocytes # 638 200 - 950 cells/uL [facility] Comment:{ABSOLUTE MONOCYTES {[id number]) Eosinophils # 91 15 - 500 cells/uL [facility] Comment:{ABSOLUTE EOSINOPHIL S {[id number]) Basophils # 68 0 - 200 cells/uL [facility] Comment:{ABSOLUTE BASOPHILS {[id number]) Neutrophils % 85.9 % [facility] Comment:{NEUTROPHILS {[id number]) Lymphocytes % 7.1 % [facility] Comment:{LYMPHOCYTES {[id number]) Monocytes % 5.6 % [facility] Comment:{MONOCYTES {[id number]) Eosinophils % 0.8 % [facility] Comment:{EOSINOPHILS {[id number]) Basophils % 0.6 % [facility] Comment:{BASOPHILS {[id number]) 01/18/2016 1:17 PM EDT 01/18/2016 9:39 PM EDT Narrative Resulting Agency Comment [id number] us Abel Fierro MD LAB SAME DAY RESULT Final Resul t [facility] [address] [place] [address] documented in this encounter Visit Diagnoses Diagnosis Rheumatoid arthritis involving multiple sites with positive rheumatoid factor (HCC) [M05.79] documented in this encounter Care Teams Vehicle Upholsterer Relationship Specialty Start Date End Date Charly Saxena [facility] [address] [place] [address] PCP - General Internal Medicine 05/25/13 07/16/17 Cheryl Calderon MD [facility] [address] [place] [address] PCP - General Internal Medicine 07/17/17 documented as of this encounter
--- OUTSIDE RECORDS SUMMARY | 2024-08-28 09:50 | XMS_ITS | Encounter Summary ---
Author Organization [facility] Address [address] [place] [address] Care Team Providers Care Managed Care Liaison Name Role Phone Cheryl Calderon MD Primary Care Provider [phone] Reason for Visit * Reason Comments E-prescribing Refill Request Encounter Details Date Type Department Care Team (Late st Contact Info) Description 09/19/2017 Refill [facility] Rheumatology [address] [place] [address] Abel Fierro MD [address] [place] [address] E-prescribing Refill Request Social History Tobacco Use [...] Phone 01/16/18 1:00 PM Abel Fierro MD [facility] Rheumatology [phone] Pertinent lab results: Lab Results Component Value [...] AN EMPTY STOMACH 6 ??? Nystatin (NYSTOP) 505256 UNIT/GM Powder APPLY TO BUTTOCKS THREE TIMES [...] on filedocumented in this encounter Care Teams Managed Care Liaison Relationship Specialty Start Date End Date Cheryl Calderon MD [facility] Adult Medicine [address] [place] [address] PCP - General Internal Medicine 07/17/17 documented as of this encounter
--- OUTSIDE RECORDS SUMMARY | 2024-08-28 09:50 | XMS_ITS | Encounter Summary ---
Author Organization [facility] Address [address] [place] [address] Care Team Providers Care Associate Dean Of Students Name Role Phone Charly Saxena Primary Care Provider [phone] Cheryl Calderon MD Primary Care Provider [phone] Encounter Details Date Type Department Care Team (Late st Contact Info) Description 02/14/2017 Orders Only [facility] Rheumatology [address] [place] [address] Abel Fierro MD [address] [place] [address] Social History Tobacco Use Types Packs/Day Years [...] 9:13 PM EDT Narrative Resulting Agency Comment [id number] us Abel Fierro MD LAB SAME DAY RESULT Final Resul t Performing Organization Address [facility] Co de Phone Number [facility] [address] [place] [address] * ASPARTATE AMINOTRANSFERASE (AST), SERUM (02/14/2017 2:31 PM EDT) AST (SGOT) 27 10 - 35 U/L [facility] 02/14/2017 2:31 PM EDT 02/14/2017 9:13 PM EDT Narrative Resulting Agency Comment [id number] Abel Fierro MD LAB SAME DAY RESULT Final Resul t Performing Organization Address [facility] de Phone Number [facility] [address] [place] [address] * CREATININE WITH GLOMERULAR FILTRATION RATE, ESTIMATED (EGFR) (02/14/2017 2:31 PM EDT) Creatinine 0.80 0.50 - 0.99 mg/dL [facility] Comment: For patients >49 years of age, the reference limit for Creatinine is approximately 13% higher for people identified as -Eritrean. GFR 79 > OR = 60 mL/min/1. [...] needs for GFR calculation. Resulting Agency Comment [id number] us Abel Fierro MD LAB SAME DAY RESULT Final Resul t [facility] [address] [place] [address] * (ABNORMAL) CBC INCLUDES DIFFERENTIAL AND PLATELET [...] 9:13 PM EDT Narrative Resulting Agency Comment [id number] us Abel Fierro MD LAB SAME DAY RESULT Final Resul t [facility] [address] [place] [address] documented in this encounter Visit Diagnoses Diagnosis Rheumatoid arthritis involving multiple sites with positive rheumatoid factor (HCC) documented in this encounter Care Teams Associate Dean Of Students Relationship Specialty Start Date End Date Charly Saxena [facility] [address] [place] [address] PCP - General Internal Medicine 05/25/13 07/16/17 Cheryl Calderon MD [facility] Adult Medicine [address] [place] [address] PCP - General Internal Medicine 07/17/17 documented as of this encounter
--- OUTSIDE RECORDS SUMMARY | 2024-08-28 09:50 | XMS_ITS | Encounter Summary ---
Author Organization [facility] Address [address] [place] [address] Care Team Providers Care Manager Agency Name Role Phone Alberto Pacheco Primary Care Provider [phone] Charly Saxena Primary Care Provider [phone] Cheryl Calderon MD Primary Care Provider [phone] Encounter Details Date Type Department Care Team (Late st Contact Info) Description 03/31/2009 Orders Only [facility] Rheumatology [address] [place] [address] Abel Fierro MD [address] [place] [address] Social History Tobacco Use Types Packs/Day Years [...] RESULT Final Resul t Performing Organization Address City/State/[facility] Co de Phone Number [facility] [address] [place] [address] * (ABNORMAL) CBC 5 PART DIFF (03/31/2009) [...] RESULT Final Resul t Performing Organization Address City/[facility] Co de Phone Number [facility] [address] [place] [address] * ASPARTATE AMINOTRANSFERASE (AST), SERUM (03/31/2009) AST (SGOT) 20 10 - 35 U/L [facility] 03/31/2009 04/01/2009 12: 36 AM EST Narrative [facility] - 04/01/2009 5:29 AM EST Report Comments: RBC'S PRESENT, CHEMISTRY RESULT(S) MAY BE AFFECTED us Abel Fierro MD LAB SAME DAY RESULT Final Resul t Performing Organization Address City/[facility] Co de Phone Number [facility] [address] [place] [address] * ALANINE AMINOTRANSFERASE (ALT), SERUM (03/31/2009) ALT (SGPT) 21 6 - 40 U/L [facility] 03/31/2009 04/01/2009 12: 36 AM EST Narrative [facility] - 04/01/2009 5:29 AM EST Report Comments: RBC'S PRESENT, CHEMISTRY RESULT(S) MAY BE AFFECTED us Abel Fierro MD LAB SAME DAY RESULT Final Resul t [facility] [address] [place] [address] documented in this encounter Visit Diagnoses Diagnosis Rheumatoid arthritis(714.0) Rheumatoid arthritis documented in this encounter Care Teams Manager Agency Relationship Specialty Start Date End Date Alberto Pacheco [address] [place] [address] PCP - General 07/19/08 05/24/13 Charly Saxena [facility] [address] [place] [address] PCP - General Internal Medicine 05/25/13 07/16/17 Cheryl Calderon MD [facility] Medicine [address] [place] [address] PCP - General Internal Medicine 07/17/17 documented as of this encounter
--- OUTSIDE RECORDS SUMMARY | 2024-08-28 09:50 | XMS_ITS | Encounter Summary ---
Author Organization [facility] Address [address] [place] [address] Care Team Providers Care Cold Rolling Supervisor Name Role Phone Alberto Pacheco Primary Care Provider [phone] Charly Saxena Primary Care Provider [phone] Cheryl Calderon MD Primary Care Provider [phone] Encounter Details Date Type Department Care Team (Late st Contact Info) Description 08/21/2010 Orders Only [facility] Rheumatology [address] [place] [address] Abel Fierro MD [address] [place] [address] Social History Tobacco Use Types Packs/Day Years [...] RESULT Final Resul t Performing Organization Address [facility] Co de Phone Number [facility] [address] [place] [address] * ALANINE AMINOTRANSFERASE (ALT), SERUM (08/21/2010) ALT (SGPT) 37 6 - 40 U/L [facility] 08/21/2010 08/21/2010 9:0 1 PM EDT us Abel Fierro MD LAB SAME DAY RESULT Final Resul t Performing Organization Address City/[facility] Co de Phone Number [facility] [address] [place] [address] * ASPARTATE AMINOTRANSFERASE (AST), SERUM (08/21/2010) AST (SGOT) 27 10 - 35 U/L [facility] 08/21/2010 08/21/2010 9:0 1 PM EDT us Abel Fierro MD LAB SAME DAY RESULT Final Resul t Performing Organization Address City/[facility]/ZIP Co de Phone Number [facility] [address] [place] [address] * (ABNORMAL) CBC 5 PART DIFF (08/21/2010) [...] Resul t Performing Organization Address City/[facility]/ZIP Co de Phone Number [facility] [address] [place] [address] documented in this encounter Visit Diagnoses Diagnosis Rheumatoid arthritis(714.0) Rheumatoid arthritis documented in this encounter Care Teams Cold Rolling Supervisor Relationship Specialty Start Date End Date Alberto Pacheco [address] [place] [address] PCP - General 07/19/08 05/24/13 Charly Saxena [facility] [address] [place] [address] PCP - General Internal Medicine 05/25/13 07/16/17 Cheryl Calderon MD [facility] Medicine [address] [place] [address] PCP - General Internal Medicine 07/17/17 documented as of this encounter
--- OUTSIDE RECORDS SUMMARY | 2024-08-28 09:50 | XMS_ITS | Encounter Summary ---
Author Organization [facility] Address [address] [place] [address] Care Team Providers Care Tailman Name Role Phone Alberto Pacheco Primary Care Provider [phone] Unknown Pcp, Non Rmg Primary Care Provider Unava ilable Charly Saxena Primary Care Provider [phone] Charly Saxena Primary Care Provider [phone] Cheryl Calderon MD Primary Care Provider [phone] Encounter Details Date Type Department Care Team (Late st Contact Info) Description 02/03/2007 Orders Only [facility] Rheumatology [address] [place] [address] Nikkie Moss, TIE IN MACHINE OPERATOR [address] [place], [place] [id number] Social History Tobacco Use Types Packs/Day Years [...] of this encounter Results * Due to [place] state law, this organization might not be sharing negative HIV tests. * ASPARTATE AMINOTRANSFERASE (AST), SERUM (02/04/2007) AST (SGOT) 16 10 - 35 U/L [facility] (CLIA# [id number]) 02/04/2007 02/04/2007 7:3 1 PM EDT us Abel Fierro MD LAB SAME DAY RESULT Final Resul t [facility] (CLIA# [id number]) [address] [place] [address] * (ABNORMAL) CBC 5 PART DIFF (02/04/2007) WHITE BLOOD COUNT 9.7 3.8 - 10.8 THOUS/UL [facility] (CLIA# [id number]) RBC 5.08 3.80 - 5.10 MIL/UL [facility] (CLIA# [id number]) Hemoglobin 15.4 11.7 - 15.5 G/DL [facility] (CLIA# [id number]) HCT (HEMATOCRIT) 45.3(H) 35.0 - 45.0 % [facility] (CLIA# [id number]) MCV 89.2 80.0 - 100.0 FL [facility] (CLIA# [id number]) MCH 30.4 27.0 - 33.0 PG [facility] (CLIA# [id number]) MCHC 34.1 32.0 - 36.0 G/DL [facility] (CLIA# [id number]) BAND % 0 0 - 5 % [facility] (CLIA# [id number]) NEUTROPHIL % 84(H) 48 - 75 % [facility] (CLIA# [id number]) LYMPHOCYTE % 10(L) 17 - 40 % [facility] (CLIA# [id number]) MONOCYTE % 6 0 - 14 % [facility] (CLIA# [id number]) EOSINOPHIL % 0 0 - 5 % [facility] (CLIA# [id number]) BASOPHIL % 0 0 - 3 % [facility] (CLIA# [id number]) ATYPICAL LYMPHOCYTE % 0 0 - 5 % [facility] (CLIA# [id number]) PLATELETS 392 140 - 400 THOUS/UL [facility] (CLIA# [id number]) BANDS # 0 0 - 750 CELLS/MCL [facility] (CLIA# [id number]) NEUTROPHILS # 8148(H) 1500 - 7800 CELLS/MCL [facility] (CLIA# [id number]) LYMPHOCYTES # 970 850 - 3900 CELLS/MCL [facility] (CLIA# [id number]) MONOCYTES # 582 200 - 950 CELLS/MCL [facility] (CLIA# [id number]) EOSINOPHILS # 0(L) 15 - 550 CELLS/MCL [facility] (CLIA# [id number]) BASOPHILS # 0 0 - 200 CELLS/MCL [facility] (CLIA# [id number]) ATYPICAL LYMPHOCYTES # 0 0 - 200 /UL [facility] (CLIA# [id number]) RDW 14.6 11.0 - 15.0 % [facility] (CLIA# [id number]) MPV 7.6 7.5 - 11.5 FL [facility] (CLIA# [id number]) 02/04/2007 02/04/2007 7:3 1 PM EDT us Abel Fierro MD LAB SAME DAY RESULT Final Resul [facility] (CLIA# [id number]) [address] [place] [address] documented in this encounter Visit Diagnoses Diagnosis RHEUMATOID ARTHRITIS- Primary Rheumatoid arthritis documented in this encounter Care Teams Tailman Relationship Specialty Start Date End Date Alberto Pacheco [address] [place] [address] PCP - General 07/19/08 05/24/13 Unknown Pcp, Non Rmg PCP - General 06/30/08 07/18/08 Charly Saxena [address] [address] PCP - General 01/18/06 06/29/08 Charly Saxena [address] [place] [address] PCP - General Internal Medicine 05/25/13 07/16/17 Cheryl Calderon MD [facility] Adult Medicine [address] [place] [address] PCP - General Internal Medicine 07/17/17 documented as of this encounter
--- OUTSIDE RECORDS SUMMARY | 2024-08-28 09:50 | XMS_ITS | Encounter Summary ---
Author Organization [facility] Address [address] [place] [address] Care Team Providers Care Industrial Engineering Director Name Role Phone Alberto Pacheco Primary Care Provider [phone] Charly Saxena Primary Care Provider [phone] Cheryl Calderon MD Primary Care Provider [phone] Encounter Details Date Type Department Care Team (Late st Contact Info) Description 08/15/2011 Orders Only [facility] Rheumatology [address] [place] [address] Abel Fierro MD [address] [place] [address] Social History Tobacco Use Types Packs/Day Years [...] this encounter Procedures * Due to [place] avolution law, this organization might not be sharing negative HIV tests. Procedure Name Priority Date/Time Associated Diagnosis Comments C-REACTIVE PROTEIN (CRP) - INFLAMMATION Routine 08/15/2011 10:22 AM EDT Rheumatoid arthritis (HCC) ERYTHROCYTE SEDIMENTATION RATE (ESR) Routine 08/15/2011 10:22 AM EDT Rheumatoid arthritis ([facility]) CBC INCLUDES DIFFERENTIAL AND PLATELET COUNT Routine 08/15/2011 10:22 AM EDT Rheumatoid arthritis ([facility]) ALANINE AMINOTRANSFERASE (ALT), SERUM Routine 08/15/2011 10:22 AM EDT Rheumatoid arthritis ([facility]) ASPARTATE AMINOTRANSFERASE (AST), SERUM Routine 08/15/2011 10:22 AM EDT Rheumatoid arthritis ([facility]) CREATININE WITH GLOMERULAR FILTRATION RATE, ESTIMATED (EGFR) Routine 08/15/2011 10:22 AM EDT Rheumatoid arthritis ([facility]) documented in this encounter Results * Due to [place] avolution law, this organization might not be sharing negative HIV tests. * ERYTHROCYTE SEDIMENTATION RATE (ESR)KUNAL (08/15/2011 10:22 AM EDT) Sedimentation Rate [place]gren (ESR) 6 < OR = 30 mm/h [facility] Comment:{SED RATE BY JONATHAN SYED {[id number]) 08/15/2011 10:2 2 AM EDT 08/15/2011 5:01 PM EDT Narrative Resulting Agency Comment [id number] us Abel Fierro MD LAB SAME DAY RESULT Final Resul t Performing Organization Address [facility] Co de Phone Number [facility] [address] [place] [address] * C-REACTIVE PROTEIN (CRP) - INFLAMMATION (08/15/2011 10:22 AM EDT) C reactive protein 0.15 <0.80 mg/dL [facility] Comment: {C-REACTIVE PROTEIN {[id number]) Please be advised that patients taking Carboxypenicillins may exhibit falsely decreased C-Reactive Protein levels due to an analytical interference in this assay. 08/15/2011 10:2 2 AM EDT 08/15/2011 5:01 PM EDT Narrative Resulting Agency Comment [id number] us Abel Fierro MD LABORATORY Final Result Performing Organization Address [facility] Co de Phone Number [facility] [address] [place] [address] * CREATININE WITH GLOMERULAR FILTRATION RATE, ESTIMATED (EGFR) (08/15/2011 10:22 AM EDT) Creatinine 0.87 0.50 - 1.05 mg/dL [facility] Comment: {CREATININE {[id number]) For patients >49 years of age, the reference limit for Creatinine is approximately 13% higher for people identified as -Greenlandic. GFR 74 > OR = 60 mL/min/1. 73m2 [facility] Comment:{eGFR NON-AFR. AMERI CAN {[id number]) GFR () 86 > OR = 60 mL/min/1. 73m2 [facility] Comment:{eGFR AMERIC AN {[id number]) 08/15/2011 10:2 2 AM EDT 08/15/2011 5:01 [...] needs for GFR calculation. Resulting Agency Comment [id number] us Abel Fierro MD LAB SAME DAY RESULT Final Resul t [facility] [address] [place] [address] * (ABNORMAL) CBC INCLUDES DIFFERENTIAL AND PLATELET COUNT (08/15/2011 10:22 AM EDT) WBC 7.5 3.8 - 10.8 Thousand/ uL [facility] Comment:{WHITE BLOOD CELL CO UNT {[id number]) RBC 5.26(H) 3.80 - 5.10 Million/u L [facility] Comment:{RED BLOOD CELL COUN T {[id number]) Hemoglobin 14.6 11.7 - 15.5 g/dL [facility] Comment:{HEMOGLOBIN {[id number]) Hematocrit 44.5 35.0 - 45.0 % [facility] Comment:{HEMATOCRIT {[id number]) MCV 84.7 80.0 - 100.0 fL [facility] Comment:{MCV {[id number]) MCH 27.8 27.0 - 33.0 pg [facility] Comment:{MCH {[id number]) MCHC 32.8 32.0 - 36.0 g/dL [facility] Comment:{MCHC {[id number]) RDW 14.8 11.0 - 15.0 % [facility] Comment:{RDW {[id number]) PLT 238 140 - 400 Thousand/ uL [facility] Comment:{PLATELET COUNT {[id number]) MPV 8.4 7.5 - 11.5 fL [facility] Comment:{MPV {[id number]) Neutrophils # 4643 1500 - 7800 cells/uL [facility] Comment:{ABSOLUTE NEUTROPHIL S {[id number]) Lymphocytes # 2265 850 - 3900 cells/uL [facility] Comment:{ABSOLUTE LYMPHOCYTE S {[id number]) Monocytes # 360 200 - 950 cells/uL [facility] Comment:{ABSOLUTE MONOCYTES {[id number]) Eosinophils # 203 15 - 500 cells/uL [facility] Comment:{ABSOLUTE EOSINOPHIL S {[id number]) Basophils # 30 0 - 200 cells/uL [facility] Comment:{ABSOLUTE BASOPHILS {[id number]) Neutrophils % 61.9 % [facility] Comment:{NEUTROPHILS {[id number]) Lymphocytes % 30.2 % [facility] Comment:{LYMPHOCYTES {[id number]) Monocytes % 4.8 % [facility] Comment:{MONOCYTES {[id number]) Eosinophils % 2.7 % [facility] Comment:{EOSINOPHILS {[id number]) Basophils % 0.4 % [facility] Comment:{BASOPHILS {[id number]) 08/15/2011 10:2 2 AM EDT 08/15/2011 5:01 PM EDT Narrative Resulting Agency Comment [id number] us Abel Fierro MD LAB SAME DAY RESULT Final Resul t Performing Organization Address City/[facility] Co de Phone Number [facility] [address] [place] [address] * ALANINE AMINOTRANSFERASE (ALT), SERUM (08/15/2011 10:22 AM EDT) ALT (SGPT) 25 6 - 40 U/L [facility] Comment:{ALT {[id number]) 08/15/2011 10:2 2 AM EDT 08/15/2011 5:01 PM EDT Narrative Resulting Agency Comment [id number] us Abel Fierro MD LAB SAME DAY RESULT Final Resul t Performing Organization Address City/[facility]/ZIP Co de Phone Number [facility] [address] [place] [address] * ASPARTATE AMINOTRANSFERASE (AST), SERUM (08/15/2011 10:22 AM EDT) AST (SGOT) 25 10 - 35 U/L [facility] Comment:{AST {[id number]) 08/15/2011 10:2 2 AM EDT 08/15/2011 5:01 PM EDT Narrative Resulting Agency Comment [id number] us Abel Fierro MD LAB SAME DAY RESULT Final Resul t [facility] [address] [place] [address] documented in this encounter Visit Diagnoses Diagnosis Rheumatoid arthritis(714.0) Rheumatoid arthritis documented in this encounter Care Teams Industrial Engineering Director Relationship Specialty Start Date End Date Alberto Pacheco [address] [place] [address] PCP - General 07/19/08 05/24/13 Charly Saxena [facility] [address] [place] [address] PCP - General Internal Medicine 05/25/13 07/16/17 Cheryl Calderon MD [facility] Medicine [address] [place] [address] PCP - General Internal Medicine 07/17/17 documented as of this encounter
--- OUTSIDE RECORDS SUMMARY | 2024-08-28 09:50 | XMS_ITS | Encounter Summary ---
Author Organization [facility] Address [address] [place] [address] Care Team Providers Care Form Raiser Name Role Phone Charly Saxena Primary Care Provider [phone] Cheryl Calderon MD Primary Care Provider Encounter Details Date Type Department Care Team (Late st Contact Info) Description 12/28/2016 Orders Only [facility] Rheumatology [address] [place] [address] Abel Fierro MD [address] [place] [address] Social History Tobacco Use Types Packs/Day Years [...] 8:27 PM EDT Narrative Resulting Agency Comment [id number] us Abel Fierro MD LAB SAME DAY RESULT Final Resul t [facility] [address] [place] [address] * ALANINE AMINOTRANSFERASE (ALT), SERUM (12/28/2016 3:13 PM EDT) ALT (SGPT) 29 6 - 29 U/L [facility] 12/28/2016 3:13 PM EDT 12/28/2016 8:27 PM EDT Narrative Resulting Agency Comment [id number] us Abel Fierro MD LAB SAME DAY RESULT Final Resul t [facility] [address] [place] [address] * C-REACTIVE PROTEIN (CRP) - INFLAMMATION (12/28/2016 3:13 PM EDT) C reactive protein 0.24 <0.80 mg/dL [facility] Comment: Please be advised that patients taking Carboxypenicillins may exhibit falsely decreased C-Reactive Protein levels due to an analytical interference in this assay. 12/28/2016 3:13 PM EDT 12/28/2016 8:27 PM EDT Narrative Resulting Agency Comment [id number] Abel Fierro MD LABORATORY Final Result Performing Organization Address [facility] Co de Phone Number [facility] [address] [place] [address] * ERYTHROCYTE SEDIMENTATION RATE (ESR), WESTERGREN (12/28/2016 3:13 PM EDT) Pathologist [facility] Sedimentation Rate [place] (ESR) 6 < OR = 30 mm/h [facility] 12/28/2016 3:13 PM EDT 12/28/2016 8:27 PM EDT Narrative Resulting Agency Comment [id number] Abel Fierro MD LAB SAME DAY RESULT Final Resul t Performing Organization Address [facility] de Phone Number [facility] [address] [place] [address] * (ABNORMAL) BASIC METABOLIC PANEL WITH (GFR) [...] approximately 13% higher for people identified as -Barbadian. GFR 77 > OR = 60 mL/min/1 [...] needs for GFR calculation. Resulting Agency Comment [id number] us Abel Fierro MD LABORATORY Final Result [facility] [address] [place] [address] * (ABNORMAL) CBC INCLUDES DIFFERENTIAL AND PLATELET [...] 8:27 PM EDT Narrative Resulting Agency Comment [id number] us Abel Fierro MD LAB SAME DAY RESULT Final Resul t Performing Organization Address City/State/[facility] Co de Phone Number [facility] [address] [place] [address] documented in this encounter Visit Diagnoses Diagnosis Rheumatoid arthritis involving multiple sites with positive rheumatoid factor (HCC) documented in this encounter Care Teams Form Raiser Relationship Specialty Start Date End Date Charly Saxena [facility] [address] [place] [address] PCP - General Internal Medicine 05/25/13 07/16/17 Cheryl Calderon MD [facility] Medicine [address] [place] [address] PCP - General Internal Medicine 07/17/17 documented as of this encounter
--- OUTSIDE RECORDS SUMMARY | 2024-08-28 09:50 | XMS_ITS | Encounter Summary ---
Author Organization [facility] Address [address] [place] [address] Care Team Providers Care Leather Belt Maker Name Role Phone Alberto Pacheco Primary Care Provider [phone] Charly Saxena Primary Care Provider [phone] Cheryl Calderon MD Primary Care Provider [phone] Encounter Details Date Type Department Care Team (Late st Contact Info) Description 05/29/2010 Orders Only [facility] Rheumatology [address] [place] [address] Abel Fierro MD [address] [place] [address] Social History Tobacco Use Types Packs/Day Years [...] t Performing Organization Address City/[facility] Co de Phone Number [facility] [address] [place] [address] * C-REACTIVE PROTEIN (CRP), QUANTITATIVE, SERUM INFLAMMATION (05/29/2010) Pathologist [facility] C REACTIVE PROTEIN (CRP) 0.2 0 - 0.7 MG/DL [facility] 05/29/2010 05/29/2010 8:2 8 PM EST Abel Fierro MD LABORATORY Final Result Performing Organization Address [facility] Co de Phone Number [facility] [address] [place] [address] * CREATININE WITH GLOMERULAR FILTRATION RATE, ESTIMATED [...] RESULT Final Resul t [facility] [address] [place] [address] * (ABNORMAL) CBC 5 PART DIFF (05/29/2010) [...] t Performing Organization Address City/[facility] Co de Phone Number [facility] [address] [place] [address] * ASPARTATE AMINOTRANSFERASE (AST), SERUM (05/29/2010) AST (SGOT) 21 10 - 35 U/L [facility] 05/29/2010 05/29/2010 8:2 8 PM EST us Abel Fierro MD LAB SAME DAY RESULT Final Resul t Performing Organization Address [facility] Co de Phone Number [facility] [address] [place] [address] * ALANINE AMINOTRANSFERASE (ALT), SERUM (05/29/2010) ALT (SGPT) 27 6 - 40 U/L [facility] 05/29/2010 05/29/2010 8:2 8 PM EST us Abel Fierro MD LAB SAME DAY RESULT Final Resul t Performing Organization Address [facility] de Phone Number [facility] [address] [place] [address] documented in this encounter Visit Diagnoses Diagnosis Rheumatoid arthritis(714.0) Rheumatoid arthritis documented in this encounter Care Teams Leather Belt Maker Relationship Specialty Start Date End Date Alberto Pacheco [address] [place] [address] PCP - General 07/19/08 05/24/13 Charly Saxena [facility] [place] [address] PCP - General Internal Medicine 05/25/13 07/16/17 Cheryl Calderon MD [facility] [address] [place] [address] PCP - General Internal Medicine 07/17/17 documented as of this encounter
--- OUTSIDE RECORDS SUMMARY | 2024-08-28 09:50 | XMS_ITS | Encounter Summary ---
Author Organization [facility] Address [address] [place] [address] Care Team Providers Care Pricing Associate Name Role Phone Charly Saxena Primary Care Provider [phone] Cheryl Calderon MD Primary Care Provider [phone] Reason for Visit * Reason Comments E-prescribing Refill Request Encounter Details Date Type Department Care Team ([facility] st Contact Info) Description 03/18/2017 Refill [facility] Rheumatology [address] [place] [address] Abel Fierro MD [address] [place] [address] E-prescribing Refill Request Social History Tobacco Use [...] to send a request for labs to [facility] in [place], [place] Lab request form sent to the [...] Phone 04/18/17 1:30 PM Abel Fierro MD [facility] [phone] 07/15/17 1:00 PM Abel Fierro MD [facility] [phone] Pertinent lab results: No labs suggested for any medication orders signed or pended in this encounter. Refresh if any orders changed. Allergies: Acetaminophen-codeine; Gold; Opioid analgesics; and Sulfa antibiotics BP Readings from Last 1 Encounters: 12/28/16 (!) 149/85 Patient Active Problem List Diagnosis Date Noted ??? Elbow pain 06/03/2012 ??? Rheumatoid arthritis(714.0) ([facility]) 09/29/2010 Followed by rheumatology treated with methotrexate, [...] MOUTH EVERY DAY 0 ??? Nystatin (NYSTOP) 504225 UNIT/GM Powder APPLY TO BUTTOCKS THREE TIMES [...] on filedocumented in this encounter Care Teams Pricing Associate Relationship Specialty Start Date End Date Charly Saxena [facility] [address] [place] [address] PCP - General Internal Medicine 05/25/13 07/16/17 Cheryl Calderon MD [facility] Medicine [address] [place] [address] PCP - General Internal Medicine 07/17/17 documented as of this encounter
--- OUTSIDE RECORDS SUMMARY | 2024-08-28 09:50 | XMS_ITS | Encounter Summary ---
Author Organization [facility] Address [address] [place] [address] Care Team Providers Care Fiber Designer Name Role Phone Alberto Pacheco Primary Care Provider [phone] Charly Saxena Primary Care Provider [phone] Cheyrl Calderon MD Primary Care Provider [phone] Reason for Visit * Reason Comments E-prescribing Refill Request Encounter Details Date Type Department Care Team (Late st Contact Info) Description 02/05/2012 Refill [facility] Rheumatology [address] [place] [address] Abel Fierro MD [address] [place] [address] E-prescribing Refill Request Social History Tobacco Use [...] on filedocumented in this encounter Care Teams Fiber Designer Relationship Specialty Start Date End Date Alberto Pacheco [address] [place] [address] PCP - General 07/19/08 05/24/13 Charly Saxena [facility] [address] [place] [address] PCP - General Internal Medicine 05/25/13 07/16/17 Cheryl Calderon MD [facility] Medicine [address] [place] [address] PCP - General Internal Medicine 07/17/17 documented as of this encounter
--- OUTSIDE RECORDS SUMMARY | 2024-08-28 09:50 | XMS_ITS | Encounter Summary ---
Author Organization [facility] Address [address] [place] [address] Care Team Providers Care Metal Bonding Press Operator Name Role Phone Cheryl Calderon MD Primary Care Provider [phone] Encounter Details Date Type Department Care Team (Late st Contact Info) Description 03/14/2018 Orders Only [facility]. Rheumatology [address] [place] [phone] Abel Fierro MD [address] [place] [address] Social History Tobacco Use Types Packs/Day Years [...] this encounter Procedures * Due to [place] state [...] 9:19 PM EST Narrative Resulting Agency Comment [id number] us Abel Fierro MD LABORATORY Final Result Performing Organization Address City/[facility] Co de Phone Number [facility] [address] [place] [address] * C-REACTIVE PROTEIN (CRP) - INFLAMMATION (03/14/2018 1:47 PM EST) C reactive protein 1.7 <8.0 mg/L [facility] 03/14/2018 1:47 PM EST 03/14/2018 9:19 PM EST Narrative Resulting Agency Comment [id number] us Abel Fierro MD LABORATORY Final Result Performing Organization Address [facility] Co de Phone Number [facility] [address] [place] [address] * ERYTHROCYTE SEDIMENTATION RATE (ESR), WESTERGREN (03/14/2018 1:47 PM EST) Sedimentation Rate Westegren (ESR) 19 < OR = 30 mm/h [facility] 03/14/2018 1:47 PM EST 03/14/2018 9:19 PM EST Narrative Resulting Agency Comment [id number] Abel Fierro MD LAB SAME DAY RESULT Final Resul t Performing Organization Address City/[facility] Co de Phone Number [facility] [address] [place] [address] * CREATININE WITH GLOMERULAR FILTRATION RATE, ESTIMATED (EGFR) (03/14/2018 1:47 PM EST) Creatinine 0.70 0.50 - 0.99 mg/dL [facility] Comment: For patients >49 years of age, the reference limit for Creatinine is approximately 13% higher for people identified as -Norwegian. GFR 92 > OR = 60 mL/min/1. [...] needs for GFR calculation. Resulting Agency Comment [id number] us Abel Fierro MD LAB SAME DAY RESULT Final Resul t Performing Organization Address City/[facility] Co de Phone Number [facility] [address] [place] [address] * ALANINE AMINOTRANSFERASE (ALT), SERUM (03/14/2018 1:47 PM EST) ALT (SGPT) 18 6 - 29 U/L [facility] 03/14/2018 1:4 7 PM EST 03/14/2018 9:19 PM EST Narrative Resulting Agency Comment [id number] Abel Fierro MD LAB SAME DAY RESULT Final Resul t [facility] [address] [place] [address] * ASPARTATE AMINOTRANSFERASE (AST), SERUM (03/14/2018 1:47 PM EST) AST (SGOT) 23 10 - 35 U/L [facility] 03/14/2018 1:47 PM EST 03/14/2018 9:19 PM EST Narrative Resulting Agency Comment [id number] Abel Fierro MD LAB SAME DAY RESULT Final Resul t Performing Organization Address [facility] [[email or web address]] de Phone Number [facility] [address] [place] [address] * (ABNORMAL) CBC INCLUDES DIFFERENTIAL AND PLATELET [...] 9:19 PM EST Narrative Resulting Agency Comment [id number] us Abel Fierro MD LAB SAME DAY RESULT Final Resul t Performing Organization Address City/State/[facility] Co de Phone Number [facility] [address] [place] [address] documented in this encounter Visit Diagnoses Diagnosis Rheumatoid arthritis involving multiple sites with positive rheumatoid factor (HCC) documented in this encounter Care Teams Metal Bonding Press Operator Relationship Specialty Start Date End Date Cheryl Calderon MD [facility] Adult Medicine [address] [place] [address] PCP - General Internal Medicine 07/17/17 documented as of this encounter
--- OUTSIDE RECORDS SUMMARY | 2024-08-28 09:50 | XMS_ITS | Encounter Summary ---
Author Organization [facility] Address [address] [place] [address] Care Team Providers Care Director Of Health Education Name Role Phone Cheryl Calderon MD Primary Care Provider Reason for Visit * Reason Comments E-prescribing Refill Request Encounter Details Date Type Department Care Team (Late st Contact Info) Description 02/01/2018 Refill [facility] Rheumatology [address] [place] [address] Abel Fierro MD [address] [place] [address] E-prescribing Refill Request Social History Tobacco Use [...] in this encounter Care Teams Director Of Health Education Relationship Specialty Start Date End Date Cheryl Calderon MD [facility] [address] [place] [address] PCP - General Internal Medicine 07/17/17 documented as of this encounter
--- OUTSIDE RECORDS SUMMARY | 2024-08-28 09:50 | XMS_ITS | Encounter Summary ---
Author Organization [facility] Address [address] [place] [address] Care Team Providers Care Supervisor Maple Products Name Role Phone Alberto Pacheco Primary Care Provider [phone] Charly Saxena Primary Care Provider [phone] Cheryl Calderon MD Primary Care Provider [phone] Encounter Details Date Type Department Care Team (Late st Contact Info) Description 10/18/2011 Orders Only [facility] Rheumatology [address] [place] [address] Abel Fierro MD [address] [place] [address] Social History Tobacco Use Types Packs/Day Years [...] - 1.05 mg/dL [facility] Comment: {CREATININE {[id number]) For patients >49 years of age, the reference limit for Creatinine is approximately 13% higher for people identified as -Jordanian. GFR 80 > OR = 60 mL/min/1. 73m2 [facility] Comment:{eGFR NON-AFR. AMERI CAN {[id number]) GFR () 93 > OR = 60 mL/min/1. 73m2 [facility] Comment:{eGFR AMERIC AN {[id number]) 10/18/2011 4:28 PM EDT 10/18/2011 8:48 PM [...] needs for GFR calculation. Resulting Agency Comment [id number] us Abel Fierro MD LAB SAME DAY RESULT Final Resul t [facility] [address] [place] [address] * ALANINE AMINOTRANSFERASE (ALT), SERUM (10/18/2011 4:28 PM EDT) ALT (SGPT) 24 6 - 40 U/L [facility] Comment:{ALT {[id number]) 10/18/2011 4:28 PM EDT 10/18/2011 8:48 PM EDT Narrative Resulting Agency Comment [id number] Abel Fierro MD LAB SAME DAY RESULT Final Resul t Performing Organization Address City/[facility] Co de Phone Number [facility] [address] [place] [address] * ASPARTATE AMINOTRANSFERASE (AST), SERUM (10/18/2011 4:28 PM EDT) Pathologist [facility] AST (SGOT) 27 10 - 35 U/L [facility] Comment:{AST {[id number]) 10/18/2011 4:28 PM EDT 10/18/2011 8:48 PM EDT Narrative Resulting Agency Comment [id number] Abel Fierro MD LAB SAME DAY RESULT Final Resul t Performing Organization Address [facility] de Phone Number [facility] [address] [place] [address] * (ABNORMAL) CBC INCLUDES DIFFERENTIAL AND PLATELET COUNT (10/18/2011 4:28 PM EDT) Pathologist [facility] WBC 7.2 3.8 - 10.8 Thousand/ uL [facility] Comment:{WHITE BLOOD CELL CO UNT {[id number]) RBC 5.34(H) 3.80 - 5.10 Million/u L [facility] Comment:{RED BLOOD CELL COUN T {[id number]) Hemoglobin 15.0 11.7 - 15.5 g/dL [facility] Comment:{HEMOGLOBIN {[id number]) Hematocrit 46.3(H) 35.0 - 45.0 % [facility] Comment:{HEMATOCRIT {[id number]) MCV 86.6 80.0 - 100.0 fL [facility] Comment:{MCV {[id number]) MCH 28.1 27.0 - 33.0 pg [facility] Comment:{MCH {[id number]) MCHC 32.5 32.0 - 36.0 g/dL [facility] Comment:{MCHC {[id number]) RDW 14.4 11.0 - 15.0 % [facility] Comment:{RDW {[id number]) PLT 254 140 - 400 Thousand/ uL [facility] Comment:{PLATELET COUNT {[id number]) MPV 8.4 7.5 - 11.5 fL [facility] Comment:{MPV {[id number]) Neutrophils # 3226 1500 - 7800 cells/uL [facility] Comment:{ABSOLUTE NEUTROPHIL S {[id number]) Lymphocytes # 2988 850 - 3900 cells/uL [facility] Comment:{ABSOLUTE LYMPHOCYTE S {[id number]) Monocytes # 893 200 - 950 cells/uL [facility] Comment:{ABSOLUTE MONOCYTES {[id number]) Eosinophils # 65 15 - 500 cells/uL [facility] Comment:{ABSOLUTE EOSINOPHIL S {[id number]) Basophils # 29 0 - 200 cells/uL [facility] Comment:{ABSOLUTE BASOPHILS {[id number]) Neutrophils % 44.8 % [facility] Comment:{NEUTROPHILS {[id number]) Lymphocytes % 41.5 % [facility] Comment:{LYMPHOCYTES {[id number]) Monocytes % 12.4 % [facility] Comment:{MONOCYTES {[id number]) Eosinophils % 0.9 % [facility] Comment:{EOSINOPHILS {[id number]) Basophils % 0.4 % [facility] Comment:{BASOPHILS {[id number]) 10/18/2011 4:28 PM EDT 10/18/2011 8:48 PM EDT Narrative Resulting Agency Comment [id number] us Abel Fierro MD LAB SAME DAY RESULT Final Resul t [facility] [address] [place] [address] documented in this encounter Visit Diagnoses Diagnosis Rheumatoid arthritis(714.0) Rheumatoid arthritis documented in this encounter Care Teams Supervisor [employer] Relationship Specialty Start Date End Date Alberto Pacheco [address] [place] [address] PCP - General 07/19/08 05/24/13 Charly Saxena [facility] [address] [place] [address] PCP - General Internal Medicine 05/25/13 07/16/17 Cheryl Calderon MD [facility] Adult Medicine [address] [place] [address] PCP - General Internal Medicine 07/17/17 documented as of this encounter
--- OUTSIDE RECORDS SUMMARY | 2024-08-28 09:50 | XMS_ITS | Encounter Summary ---
Author Organization [facility] Address [address] [place] [address] Care Team Providers Care Betting Agency Manager Name Role Phone Charly Saxena Primary Care Provider [phone] Cheryl Calderon MD Primary Care Provider [phone] Encounter Details Date Type Department Care Team (Late st Contact Info) Description 10/15/2016 Orders Only [facility] Rheumatology [address] [place] [address] Abel Fierro MD [address] [place] [address] Social History Tobacco Use Types Packs/Day Years [...] EDT) C reactive protein 0.19 <0.80 mg/dL [facility] Comment: Please be advised that patients taking Carboxypenicillins may exhibit falsely decreased C-Reactive Protein levels due to an analytical interference in this assay. 10/15/2016 12:3 9 PM EDT 10/15/2016 7:34 PM EDT Narrative Resulting Agency Comment [id number] us Abel Fierro MD LABORATORY Final Result [facility] [address] [place] [address] * ERYTHROCYTE SEDIMENTATION RATE (ESR), KUNAL (10/15/2016 12:39 PM EDT) Sedimentation Rate [place]ren (ESR) 11 < OR = 30 mm/h [facility] 10/15/2016 12:3 9 PM EDT 10/15/2016 7:34 PM EDT Narrative Resulting Agency Comment [id number] us Abel Fierro MD LAB SAME DAY RESULT Final Resul t Performing Organization Address [facility] de Phone Number [facility] [address] [place] [address] * CREATININE WITH GLOMERULAR FILTRATION RATE, ESTIMATED (EGFR) (10/15/2016 12:39 PM EDT) Creatinine 0.79 0.50 - 0.99 mg/dL [facility] Comment: For patients >49 years of age, the reference limit for Creatinine is approximately 13% higher for people identified as -Norwegian. GFR 81 > OR = 60 mL/min/1. [...] needs for GFR calculation. Resulting Agency Comment [id number] us Abel Fierro MD LAB SAME DAY RESULT Final Resul t Performing Organization Address [facility] Co de Phone Number [facility] [address] [place] [address] * ALANINE AMINOTRANSFERASE (ALT), SERUM (10/15/2016 12:39 PM EDT) ALT (SGPT) 27 6 - 29 U/L [facility] 10/15/2016 12:3 9 PM EDT 10/15/2016 7:34 PM EDT Narrative Resulting Agency Comment [id number] us Abel Fierro MD LAB SAME DAY RESULT Final Resul t Performing Organization Address City/[facility] Co de Phone Number [facility] [address] [place] [address] * ASPARTATE AMINOTRANSFERASE (AST), SERUM (10/15/2016 12:39 PM EDT) AST (SGOT) 25 10 - 35 U/L [facility] 10/15/2016 12:3 9 PM EDT 10/15/2016 7:34 PM EDT Narrative Resulting Agency Comment [id number] us Abel Fierro MD LAB SAME DAY RESULT Final Resul t Performing Organization Address [facility] de Phone Number [facility] [address] [place] [address] * (ABNORMAL) CBC INCLUDES DIFFERENTIAL AND PLATELET [...] 7:34 PM EDT Narrative Resulting Agency Comment [id number] us Aebl Fierro MD LAB SAME DAY RESULT Final Resul t [facility] [address] [place] [address] documented in this encounter Visit Diagnoses Diagnosis Rheumatoid arthritis involving multiple sites with positive rheumatoid factor (HCC) [M05.79] documented in this encounter Care Teams Betting Agency Manager Relationship Specialty Start Date End Date Charly Saxena [facility] [address] [place] [address] PCP - General Internal Medicine 05/25/13 07/16/17 Cheryl Calderon MD [facility] [address] [place] [address] PCP - General Internal Medicine 07/17/17 documented as of this encounter
--- OUTSIDE RECORDS SUMMARY | 2024-08-28 09:50 | XMS_ITS | Encounter Summary ---
Author Organization [facility] Address [address] [place] [address] Care Team Providers Care Exerciser Horse Name Role Phone Alberto Pacheco Primary Care Provider [phone] Charly Saxena Primary Care Provider [phone] Cheryl Calderon MD Primary Care Provider [phone] Encounter Details Date Type Department Care Team (Late st Contact Info) Description 04/18/2012 Orders Only [facility] Rheumatology [address] [place] [address] Abel Fierro MD [address] [place] [address] Social History Tobacco Use Types Packs/Day Years [...] DIAGNOSTICS Comment:{SED RATE BY MODIFIE D WESTERGREN {[id number]) 04/18/2012 1:37 PM EST 04/18/2012 11:16 PM EST Narrative Resulting Agency Comment [id number] us Abel Fierro MD LAB SAME DAY RESULT Final Resul t Performing Organization Address City/State/[facility] Co de Phone Number [facility] [address] [place] [address] * (ABNORMAL) C-REACTIVE PROTEIN (CRP) - INFLAMMATION (04/18/2012 1:37 PM EST) C reactive protein 1.36(H) <0.80 mg/dL [facility] Comment: {C-REACTIVE PROTEIN {[id number]) Please be advised that patients taking Carboxypenicillins may exhibit falsely decreased C-Reactive Protein levels due to an analytical interference in this assay. 04/18/2012 1:37 PM EST 04/18/2012 11:16 PM EST Narrative Resulting Agency Comment [id number] us Abel Fierro MD LABORATORY Final Result Performing Organization Address [facility] Co de Phone Number [facility] [address] [place] [address] * CREATININE WITH GLOMERULAR FILTRATION RATE, ESTIMATED (EGFR) (04/18/2012 1:37 PM EST) Creatinine 0.77 0.50 - 1.05 mg/dL [facility] Comment: {CREATININE {[id number]) For patients >49 years of age, the reference limit for Creatinine is approximately 13% higher for people identified as -Fijian. GFR 86 > OR = 60 mL/min/1. 73m2 [facility] Comment:{eGFR NON-AFR. AMERI CAN {[id number]) GFR () 99 > OR = 60 mL/min/1. 73m2 [facility] Comment:{eGFR AMERIC AN {[id number]) 04/18/2012 1:37 PM EST 04/18/2012 11:16 PM [...] needs for GFR calculation. Resulting Agency Comment [id number] us Abel Fierro MD LAB SAME DAY RESULT Final Resul t Performing Organization Address City/[facility] Co de Phone Number [facility] [address] [place] [address] * (ABNORMAL) CBC INCLUDES DIFFERENTIAL AND PLATELET COUNT (04/18/2012 1:37 PM EST) WBC 8.3 3.8 - 10.8 Thousand/ uL [facility] Comment:{WHITE BLOOD CELL CO UNT {[id number]) RBC 5.25(H) 3.80 - 5.10 Million/u L [facility] Comment:{RED BLOOD CELL COUN T {[id number]) Hemoglobin 15.1 11.7 - 15.5 g/dL [facility] Comment:{HEMOGLOBIN {[id number]) Hematocrit 46.5(H) 35.0 - 45.0 % [facility] Comment:{HEMATOCRIT {[id number]) MCV 88.5 80.0 - 100.0 fL [facility] Comment:{MCV {[id number]) MCH 28.7 27.0 - 33.0 pg [facility] Comment:{MCH {[id number]) MCHC 32.5 32.0 - 36.0 g/dL [facility] Comment:{MCHC {[id number]) RDW 13.4 11.0 - 15.0 % [facility] Comment:{RDW {[id number]) PLT 318 140 - 400 Thousand/ uL [facility] Comment:{PLATELET COUNT {[id number]) MPV 8.2 7.5 - 11.5 fL [facility] Comment:{MPV {[id number]) Neutrophils # 4681 1500 - 7800 cells/uL [facility] Comment:{ABSOLUTE NEUTROPHIL S {[id number]) Lymphocytes # 2598 850 - 3900 cells/uL [facility] Comment:{ABSOLUTE LYMPHOCYTE S {[id number]) Monocytes # 805 200 - 950 cells/uL [facility] Comment:{ABSOLUTE MONOCYTES {[id number]) Eosinophils # 199 15 - 500 cells/uL [facility] Comment:{ABSOLUTE EOSINOPHIL S {[id number]) Basophils # 17 0 - 200 cells/uL [facility] Comment:{ABSOLUTE BASOPHILS {[id number]) Neutrophils % 56.4 % [facility] Comment:{NEUTROPHILS {[id number]) Lymphocytes % 31.3 % [facility] Comment:{LYMPHOCYTES {[id number]) Monocytes % 9.7 % [facility] Comment:{MONOCYTES {[id number]) Eosinophils % 2.4 % [facility] Comment:{EOSINOPHILS {[id number]) Basophils % 0.2 % [facility] Comment:{BASOPHILS {[id number]) 04/18/2012 1:37 PM EST 04/18/2012 11:16 PM EST Narrative Resulting Agency Comment [id number] us Abel Fierro MD LAB SAME DAY RESULT Final Resul t Performing Organization Address City/[facility] Co de Phone Number [facility] [address] [place] [address] * ASPARTATE AMINOTRANSFERASE (AST), SERUM (04/18/2012 1:37 PM EST) AST (SGOT) 18 10 - 35 U/L [facility] Comment:{AST {[id number]) 04/18/2012 1:37 PM EST 04/18/2012 11:16 PM EST Narrative Resulting Agency Comment [id number] us Abel Fierro MD LAB SAME DAY RESULT Final Resul t Performing Organization Address [facility] de Phone Number [facility] [address] [place] [address] * ALANINE AMINOTRANSFERASE (ALT), SERUM (04/18/2012 1:37 PM EST) ALT (SGPT) 17 6 - 40 U/L [facility] Comment:{ALT {[id number]) 04/18/2012 1:37 PM EST 04/18/2012 11:16 PM EST Narrative Resulting Agency Comment [id number] us Abel Fierro MD LAB SAME DAY RESULT Final Resul t Performing Organization Address City/[facility] de Phone Number [facility] [address] [place] [address] documented in this encounter Visit Diagnoses Diagnosis Rheumatoid arthritis(714.0) Rheumatoid arthritis documented in this encounter Care Teams Exerciser Horse Relationship Specialty Start Date End Date Alberto Pacheco [address] [place] [address] PCP - General 07/19/08 05/24/13 Charly Saxena [facility] [address] [place] [address] PCP - General Internal Medicine 05/25/13 07/16/17 Cheryl Calderon MD [address] [address] PCP - General Internal Medicine 07/17/17 documented as of this encounter
--- OUTSIDE RECORDS SUMMARY | 2024-08-28 09:50 | XMS_ITS | Encounter Summary ---
Author Organization [facility] Address [address] [place] [address] Care Team Providers Care Legal Analyst Name Role Phone Alberto Pacheco Primary Care Provider [phone] Charly Saxena Primary Care Provider [phone] Cheryl Calderon MD Primary Care Provider [phone] Encounter Details Date Type Department Care Team (Late st Contact Info) Description 09/02/2009 Orders Only [facility] Rheumatology [address] [place] [address] Abel Fierro MD [address] [place] [address] Social History Tobacco Use Types Packs/Day Years [...] RESULT Final Resul t Performing Organization Address [facility] de Phone Number [facility] [address] [place] [address] * ASPARTATE AMINOTRANSFERASE (AST), SERUM (09/02/2009) AST (SGOT) 24 10 - 35 U/L [facility] 09/02/2009 09/02/2009 9:5 7 PM EDT us Abel Fierro MD LAB SAME DAY RESULT Final Resul t Performing Organization Address [facility] Phone Number [facility] [address] [place] [address] * CREATININE WITH GLOMERULAR FILTRATION RATE, ESTIMATED [...] RESULT Final Resul t Performing Organization Address City/[facility]/ZIP Co de Phone Number [facility] [address] [place] [address] * (ABNORMAL) CBC 5 PART DIFF (09/02/2009) [...] RESULT Final Resul t Performing Organization Address City/[facility]/ZIP Co de Phone Number [facility] [address] [place] [address] documented in this encounter Visit Diagnoses Diagnosis Rheumatoid arthritis(714.0) Rheumatoid arthritis documented in this encounter Care Teams Legal Analyst Relationship Specialty Start Date End Date Alberto Pacheco [address] [place] [address] PCP - General 07/19/08 05/24/13 Charly Saxena [facility] [address] [place] [address] PCP - General Internal Medicine 05/25/13 07/16/17 Cheryl Calderon MD Pending Sale To [facility] [address] [place] [address] PCP - General Internal Medicine 07/17/17 documented as of this encounter
--- OUTSIDE RECORDS SUMMARY | 2024-08-28 09:50 | XMS_ITS | Encounter Summary ---
Author Organization [facility] Address [address] [place] [address] Care Team Providers Care Physiotherapy Practice Manager Name Role Phone Cheryl Calderon MD Primary Care Provider [phone] Encounter Details Date Type Department Care Team (Late st Contact Info) Description 02/16/2019 Orders Only [facility]. Rheumatology [address] [place] [phone] Melanie Aguirre MD [address] [place] [address] Social History Tobacco Use Types Packs/Day Years [...] 13% higher for people identified as -Macedonian. EGFR 93 > OR = 60 mL/min/1 [...] needs for GFR calculation. Resulting Agency Comment [id number] us Melanie Aguirre MD LABORATORY Final Result Performing Organization Address [facility]/ZIP Co de Phone Number [facility] [address] [place] [address] * (ABNORMAL) C-REACTIVE PROTEIN (CRP) - INFLAMMATION (02/16/2019 2:04 PM EDT) C reactive protein 79.2(H) <8.0 mg/L [facility] 02/16/2019 2:04 PM EDT 02/16/2019 11:45 PM EDT Narrative Resulting Agency Comment [id number] us Melanie Aguirre MD LABORATORY Final Result Performing Organization Address [facility] Co de Phone Number [facility] [address] [place] [address] * (ABNORMAL) CBC INCLUDES DIFFERENTIAL AND PLATELET [...] 11:45 PM EDT Narrative Resulting Agency Comment [id number] us Melanie Aguirre MD LAB SAME DAY RESULT Final Result Performing Organization Address [facility] Co de Phone Number [facility] [address] [place] [address] * (ABNORMAL) ERYTHROCYTE SEDIMENTATION RATE (ESR), [place] (02/16/2019 2:04 PM EDT) Sedimentation Rate [place] (ESR) 72(H) < OR = 30 mm/h [facility] 02/16/2019 2:04 PM EDT 02/16/2019 11:45 PM EDT Narrative Resulting Agency Comment [id number] us Melanie Aguirre MD LAB SAME DAY RESULT Final Result Performing Organization Address City/[facility]/ZIP Co de Phone Number [facility] [address] [place] [address] documented in this encounter Visit Diagnoses Diagnosis Rheumatoid arthritis involving multiple sites with positive rheumatoid factor (HCC) documented in this encounter Care Teams Physiotherapy Practice Manager Relationship Specialty Start Date End Date Cheryl Calderon MD [facility] Adult Medicine [address] [place] [address] PCP - General Internal Medicine 07/17/17 documented as of this encounter
--- OUTSIDE RECORDS SUMMARY | 2024-08-28 09:50 | XMS_ITS | Encounter Summary ---
Author Organization [facility] Address [address] [place] [address] Care Team Providers Care Food Safety Director Name Role Phone Alberto Pacheco Primary Care Provider [phone] Unknown Pcp, Non Rmg Primary Care Provider Unava ilCharly Antoine Primary Care Provider [phone] Charly Saxena Primary Care Provider Cheryl Calderon MD Primary Care Provider [phone] Encounter Details Date Type Department Care Team (Late st Contact Info) Description 11/15/2006 Orders Only [facility] Rheumatology [address] [place] [address] Abel Fierro MD [address] [place] [address] Social History Tobacco Use Types Packs/Day Years [...] arthritis documented in this encounter Care Teams Food Safety Director Relationship Specialty Start Date End Date Alberto Pacheco [address] [place] [address] PCP - General 07/19/08 05/24/13 Unknown Pcp, Non Rmg PCP - General 06/30/08 07/18/08 Charly Saxena [facility] [address] [place] [address] PCP - General 01/18/06 06/29/08 Charly Saxena [facility] [address] [place] [address] PCP - General Internal Medicine 05/25/13 07/16/17 Cheryl Calderon MD [facility] Adult Medicine [address] [place] [address] PCP - General Internal Medicine 07/17/17 documented as of this encounter
--- OUTSIDE RECORDS SUMMARY | 2024-08-28 09:50 | XMS_ITS | Encounter Summary ---
Author Organization [facility] Address [address] [place] [address] Care Team Providers Care Dry Boss Name Role Phone Alberto Pacheco Primary Care Provider [phone] Charly Saxena Primary Care Provider [phone] Cheryl Calderon MD Primary Care Provider [phone] Reason for Visit * Reason Comments E-prescribing Refill Request Encounter Details Date Type Department Care Team (Late st Contact Info) Description 08/21/2010 Refill [facility] Rheumatology [address] [place] [address] Abel Fierro MD [address] [place] [address] E-prescribing Refill Request Social History Tobacco Use [...] filedocumented in this encounter Care Teams Dry Boss Relationship Specialty Start Date End Date Alberto Pacheco [address] [place] [address] PCP - General 07/19/08 05/24/13 Charly Saxena [facility] [address] [place] [address] PCP - General Internal Medicine 05/25/13 07/16/17 Cheryl Calderon MD [facility] Medicine [address] [place] [address] PCP - General Internal Medicine 07/17/17 documented as of this encounter
--- OUTSIDE RECORDS SUMMARY | 2024-08-28 09:50 | XMS_ITS | Encounter Summary ---
Author Organization [facility] Address [address] [place] [address] Care Team Providers Care Retail Chain Store Area Supervisor Name Role Phone Alberto Pacheco Primary Care Provider [phone] Charly Saxena Primary Care Provider [phone] Cheryl Calderon MD Primary Care Provider [phone] Encounter Details Date Type Department Care Team (Late st Contact Info) Description 02/20/2011 Orders Only [facility] Rheumatology [address] [place] [address] Abel Fierro MD [address] [place] [address] Social History Tobacco Use Types Packs/Day Years [...] 0.60 - 1.10 mg/dL [facility] Comment:{CREATININE {[id number]) GFR 82 > OR = 60 mL/min/1.7 3m2 [facility] Comment:{eGFR NON-AFR. AMERI CAN {[id number]) GFR () 96 > OR = 60 mL/min/1.7 3m2 [facility] Comment:{eGFR AMERIC AN {[id number]) 02/20/2011 11:2 4 AM EDT 02/20/2011 7:08 [...] needs for GFR calculation. Resulting Agency Comment [id number] us Abel Fierro MD LAB SAME DAY RESULT Final Resul t [facility] [address] [place] [address] * (ABNORMAL) CBC INCLUDES DIFFERENTIAL AND PLATELET COUNT (02/20/2011 11:24 AM EDT) WBC 7.8 3.8 - 10.8 Thousand/ uL [facility] Comment:{WHITE BLOOD CELL CO UNT {[id number]) RBC 5.43(H) 3.80 - 5.10 Million/u L [facility] Comment:{RED BLOOD CELL COUN T {[id number]) Hemoglobin 15.9(H) 11.7 - 15.5 g/dL [facility] Comment:{HEMOGLOBIN {[id number]) Hematocrit 48.3(H) 35.0 - 45.0 % [facility] Comment:{HEMATOCRIT {[id number]) MCV 89.0 80.0 - 100.0 fL [facility] Comment:{MCV {[id number]) MCH 29.4 27.0 - 33.0 pg [facility] Comment:{MCH {[id number]) MCHC 33.0 32.0 - 36.0 g/dL [facility] Comment:{MCHC {[id number]) RDW 14.3 11.0 - 15.0 % [facility] Comment:{RDW {[id number]) PLT 274 140 - 400 Thousand/ uL [facility] Comment:{PLATELET COUNT {[id number]) MPV 8.3 7.5 - 11.5 fL [facility] Comment:{MPV {[id number]) Neutrophils # 4930 1500 - 7800 cells/uL [facility] Comment:{ABSOLUTE NEUTROPHIL S {[id number]) Lymphocytes # 1919 850 - 3900 cells/uL [facility] Comment:{ABSOLUTE LYMPHOCYTE S {[id number]) Monocytes # 780 200 - 950 cells/uL [facility] Comment:{ABSOLUTE MONOCYTES {[id number]) Eosinophils # 125 15 - 500 cells/uL [facility] Comment:{ABSOLUTE EOSINOPHIL S {[id number]) Basophils # 47 0 - 200 cells/uL [facility] Comment:{ABSOLUTE BASOPHILS {[id number]) Neutrophils % 63.2 % [facility] Comment:{NEUTROPHILS {[id number]) Lymphocytes % 24.6 % [facility] Comment:{LYMPHOCYTES {[id number]) Monocytes % 10.0 % [facility] Comment:{MONOCYTES {[id number]) Eosinophils % 1.6 % [facility] Comment:{EOSINOPHILS {[id number]) Basophils % 0.6 % [facility] Comment:{BASOPHILS {[id number]) 02/20/2011 11:2 4 AM EDT 02/20/2011 7:08 PM EDT Narrative Resulting Agency Comment [id number] us Abel Fierro MD LAB SAME DAY RESULT Final Resul t Performing Organization Address City/[facility] Co de Phone Number [facility] [address] [place] [address] * ASPARTATE AMINOTRANSFERASE (AST), SERUM (02/20/2011 11:24 AM EDT) AST (SGOT) 23 10 - 35 U/L [facility] Comment:{AST {[id number]) 02/20/2011 11:2 4 AM EDT 02/20/2011 7:08 PM EDT Narrative Resulting Agency Comment [id number] us Abel Fierro MD LAB SAME DAY RESULT Final Resul t Performing Organization Address [facility] Co de Phone Number [facility] [address] [place] [address] * ALANINE AMINOTRANSFERASE (ALT), SERUM (02/20/2011 11:24 AM EDT) ALT (SGPT) 25 6 - 40 U/L [facility] Comment:{ALT {[id number]) 02/20/2011 11:2 4 AM EDT 02/20/2011 7:08 PM EDT Narrative Resulting Agency Comment [id number] us Abel Fierro MD LAB SAME DAY RESULT Final Resul t Performing Organization Address City/[facility] [address]/[facility] Co de Phone Number [facility] [address] [place] [address] documented in this encounter Visit Diagnoses Diagnosis Rheumatoid arthritis(714.0) Rheumatoid arthritis documented in this encounter Care Teams Retail Chain Store Area Supervisor Relationship Specialty Start Date End Date Alberto Pacheco [address] [place] [address] PCP - General 07/19/08 05/24/13 Charly Saxena [facility] [address] [place] [address] PCP - General Internal Medicine 05/25/13 07/16/17 Cheryl Calderon MD [facility] Medicine [address] [place] [address] PCP - General Internal Medicine 07/17/17 documented as of this encounter
--- OUTSIDE RECORDS SUMMARY | 2024-08-28 09:50 | XMS_ITS | Encounter Summary ---
Author Organization [facility] Address [address] [place] [address] Care Team Providers Care Refuse And Recycling Worker Name Role Phone Alberto Pacheco Primary Care Provider [phone] Charly Saxena Primary Care Provider [phone] Cheryl Calderon MD Primary Care Provider [phone] Reason for Visit * Reason Comments E-prescribing Refill Request Encounter Details Date Type Department Care Team ([facility] st Contact Info) Description 10/20/2011 Refill [facility] Rheumatology [address] [place] [address] Abel Fierro MD [address] [place] [address] E-prescribing Refill Request Social History Tobacco Use [...] on filedocumented in this encounter Care Teams Refuse And Recycling Worker Relationship Specialty Start Date End Date Alberto Pacheco [address] [place] [address] PCP - General 07/19/08 05/24/13 Charly Saxena [facility] [address] [place] [address] PCP - General Internal Medicine 05/25/13 07/16/17 Cheryl Calderon MD [facility] [address] [place] [address] PCP - General Internal Medicine 07/17/17 documented as of this encounter
--- OUTSIDE RECORDS SUMMARY | 2024-08-28 09:50 | XMS_ITS | Encounter Summary ---
Author Organization [facility] Address [address] [place] [address] Care Team Providers Care Coroner Transport Technician Name Role Phone Alberto Pacheco Primary Care Provider [phone] Unknown Pcp, Non Rmg Primary Care Provider Unava ilable Charly Saxena Primary Care Provider [phone] Charly Saxena Primary Care Provider [phone] Cheryl Calderon MD Primary Care Provider [phone] Encounter Details Date Type Department Care Team (Late st Contact Info) Description 02/04/2007 Orders Only [facility] Rheumatology [address] [place] [address] Abel Fierro MD [address] [place] [address] Social History Tobacco Use Types Packs/Day Years [...] this encounter Procedures * Due to [place] [employer] law, this organization might not be sharing [...] - 35 U/L [facility] (CLIA# [id number]) 02/04/2007 02/04/2007 7:3 1 PM EDT us Abel Fierro MD LAB SAME DAY RESULT Final Resul t [facility] (CLIA# [id number]) [address] [place] [address] * (ABNORMAL) CBC 5 PART DIFF (02/04/2007) WHITE BLOOD COUNT 9.7 3.8 - 10.8 THOUS/UL [facility] (CLIA# [id number]) RBC 5.08 3.80 - 5.10 MIL/UL [facility] (CLIA# [id number]) Hemoglobin 15.4 11.7 - 15.5 G/DL [facility] (CLIA# [id number]) HCT (HEMATOCRIT) 45.3(H) 35.0 - 45.0 % [facility] (CLIA# [id number]) MCV 89.2 80.0 - 100.0 FL [facility] (CLIA# [id number]) MCH 30.4 27.0 - 33.0 PG [facility] (CLIA# [id number]) MCHC 34.1 32.0 - 36.0 G/DL [facility] (CLIA# [id number]) BAND % 0 0 - 5 % [facility] (CLIA# [id number]) NEUTROPHIL % 84(H) 48 - 75 % [facility] (CLIA# [id number]) LYMPHOCYTE % 10(L) 17 - 40 % [facility] (CLIA# [id number]) MONOCYTE % 6 0 - 14 % [facility] (CLIA# [id number]) EOSINOPHIL % 0 0 - 5 % [facility] (CLIA# [id number]) BASOPHIL % 0 0 - 3 % [facility] (CLIA# [id number]) ATYPICAL LYMPHOCYTE % 0 0 - 5 % [facility] (CLIA# [id number]) PLATELETS 392 140 - 400 THOUS/UL [facility] (CLIA# [id number]) BANDS # 0 0 - 750 CELLS/MCL [facility] (CLIA# [id number]) NEUTROPHILS # 8148(H) 1500 - 7800 CELLS/MCL [facility] (CLIA# [id number]) LYMPHOCYTES # 970 850 - 3900 CELLS/MCL [facility] (CLIA# [id number]) MONOCYTES # 582 200 - 950 CELLS/MCL [facility] (CLIA# [id number]) EOSINOPHILS # 0(L) 15 - 550 CELLS/MCL [facility] (CLIA# [id number]) BASOPHILS # 0 0 - 200 CELLS/MCL [facility] (CLIA# [id number]) ATYPICAL LYMPHOCYTES # 0 0 - 200 /UL [facility] (CLIA# [id number]) RDW 14.6 11.0 - 15.0 % [facility] (CLIA# [id number]) MPV 7.6 7.5 - 11.5 FL [facility] (CLIA# [id number]) 02/04/2007 02/04/2007 7:3 1 PM EDT us Abel Fierro MD LAB SAME DAY RESULT Final Resul t [facility] (CLIA# [id number]) [address] [place] [address] documented in this encounter Visit Diagnoses Diagnosis RHEUMATOID ARTHRITIS Rheumatoid arthritis documented in this encounter Care Teams Coroner Transport Technician Relationship Specialty Start Date End Date Alberto Pacheco [address] [place] [address] PCP - General 07/19/08 05/24/13 Unknown Pcp, Non Rmg PCP - General 06/30/08 07/18/08 Charly Saxena [facility] [address] [place] [address] PCP - General 01/18/06 06/29/08 Charly Saxena [facility] [address] [place] [address] PCP - General Internal Medicine 05/25/13 07/16/17 Cheryl Calderon MD [facility] Medicine [address] [place] [address] PCP - General Internal Medicine 07/17/17 documented as of this encounter
--- OUTSIDE RECORDS SUMMARY | 2024-08-28 09:50 | XMS_ITS | Encounter Summary ---
Author Organization [facility] Address [address] [place] [address] Care Team Providers Care Shroud Line Tier Name Role Phone Alberto Pacheco Primary Care Provider [phone] Charly Saxena Primary Care Provider [phone] Cheryl Calderon MD Primary Care Provider [phone] Encounter Details Date Type Department Care Team (Late st Contact Info) Description 04/14/2010 Orders Only [facility] Rheumatology [address] [place] [address] Deepti Estes GNP Social History Tobacco Use [...] precise needs for GFR calculation. Deepti Estes [facility] SAME DAY RESULT Elana l Result Performing Organization Address [facility] de Phone Number [facility] [address] [place] [address] * ALANINE AMINOTRANSFERASE (ALT), SERUM (04/14/2010) ALT (SGPT) 28 6 - 40 U/L [facility] 04/14/2010 04/14/2010 11: 35 PM EST Deepti Estes [facility] SAME DAY RESULT Elana l Result Performing Organization Address [facility] Co de Phone Number [facility] [address] [place] [address] * ASPARTATE AMINOTRANSFERASE (AST), SERUM (04/14/2010) AST (SGOT) 24 10 - 35 U/L [facility] 04/14/2010 04/14/2010 11: 35 PM EST Deepti Estes [facility] SAME DAY RESULT Elana l Result [facility] [address] [place] [address] * (ABNORMAL) CBC 5 PART DIFF (04/14/2010) [...] 04/14/2010 11: 35 PM EST Deepti Estes [facility] SAME DAY RESULT Elana l Result [facility] [address] [place] [address] documented in this encounter Visit Diagnoses Diagnosis Rheumatoid arthritis(714.0) Rheumatoid arthritis documented in this encounter Care Teams Shroud Line Tier Relationship Specialty Start Date End Date Alberto Pacheco [address] [place] [address] PCP - General 07/19/08 05/24/13 Charly Saxena [facility] [place] [address] PCP - General Internal Medicine 05/25/13 07/16/17 Cheryl Calderon MD [facility] Adult Medicine [address] [place] [address] PCP - General Internal Medicine 07/17/17 documented as of this encounter
--- OUTSIDE RECORDS SUMMARY | 2024-08-28 09:50 | XMS_ITS | Encounter Summary ---
Author Organization [facility] Address [address] [place] [address] Care Team Providers Care Play Leader Name Role Phone Alberto Pacheco Primary Care Provider [phone] Charly Saxena Primary Care Provider [phone] Cheryl Calderon MD Primary Care Provider [phone] Encounter Details Date Type Department Care Team (Late st Contact Info) Description 12/26/2010 Orders Only [facility] Rheumatology [address] [place] [address] Abel Fierro MD [address] [place] [address] Social History Tobacco Use Types Packs/Day Years [...] encounter Procedures * Due to [place] state law, this organization might not be [...] encounter Results * Due to [place] state law, this organization might not be sharing negative HIV tests. * (ABNORMAL) CBC 5 PART DIFF (12/26/2010 9:49 AM EDT) WBC 10.5 3.8 - 10.8 Thousand/ uL [facility] Comment:{WHITE BLOOD CELL CO UNT {[id number]) RBC 5.17(H) 3.80 - 5.10 Million/u L [facility] Comment:{RED BLOOD CELL COUN T {[id number]) Hemoglobin 15.0 11.7 - 15.5 g/dL [facility] Comment:{HEMOGLOBIN {[id number]) Hematocrit 46.0(H) 35.0 - 45.0 % [facility] Comment:{HEMATOCRIT {[id number]) MCV 89.1 80.0 - 100.0 fL [facility] Comment:{MCV {[id number]) MCH 29.0 27.0 - 33.0 pg [facility] Comment:{MCH {[id number]) MCHC 32.5 32.0 - 36.0 g/dL [facility] Comment:{MCHC {[id number]) RDW 16.1(H) 11.0 - 15.0 % [facility] Comment:{RDW {[id number]) PLT 300 140 - 400 Thousand/ uL [facility] Comment:{PLATELET COUNT {[id number]) MPV 7.6 7.5 - 11.5 fL [facility] Comment:{MPV {[id number]) Neutrophils # 7707 1500 - 7800 cells/uL [facility] Comment:{ABSOLUTE NEUTROPHIL S {[id number]) Lymphocytes # 2163 850 - 3900 cells/uL [facility] Comment:{ABSOLUTE LYMPHOCYTE S {[id number]) Monocytes # 452 200 - 950 cells/uL [facility] Comment:{ABSOLUTE MONOCYTES {[id number]) Eosinophils # 147 15 - 500 cells/uL [facility] Comment:{ABSOLUTE EOSINOPHIL S {[id number]) Basophils # 32 0 - 200 cells/uL [facility] Comment:{ABSOLUTE BASOPHILS {[id number]) Neutrophils % 73.4 % [facility] Comment:{NEUTROPHILS {[id number]) Lymphocytes % 20.6 % [facility] Comment:{LYMPHOCYTES {[id number]) Monocytes % 4.3 % [facility] Comment:{MONOCYTES {[id number]) Eosinophils % 1.4 % [facility] Comment:{EOSINOPHILS {[id number]) Basophils % 0.3 % [facility] Comment:{BASOPHILS {[id number]) 12/26/2010 9:49 AM EDT 12/27/2010 12:33 AM EDT Narrative Resulting Agency Comment [id number] us Abel Fierro MD LAB SAME DAY RESULT Final Resul t Performing Organization Address [facility] Co de Phone Number [facility] [address] [place] [address] * ALANINE AMINOTRANSFERASE (ALT), SERUM (12/26/2010 9:49 AM EDT) ALT (SGPT) 16 6 - 40 U/L [facility] Comment:{ALT {[id number]) 12/26/2010 9:49 AM EDT 12/27/2010 12:33 AM EDT Narrative Resulting Agency Comment [id number] us Abel Fierro MD LAB SAME DAY RESULT Final Resul t Performing Organization Address City/[facility] Co de Phone Number [facility] [address] [place] [address] * ASPARTATE AMINOTRANSFERASE (AST), SERUM (12/26/2010 9:49 AM EDT) AST (SGOT) 16 10 - 35 U/L [facility] Comment:{AST {[id number]) 12/26/2010 9:4 9 AM EDT 12/27/2010 12:33 AM EDT Narrative Resulting Agency Comment [id number] us Abel Fierro MD LAB SAME DAY RESULT Final Resul t Performing Organization Address [facility] Co de Phone Number [facility] [address] [place] [address] * CREATININE WITH GLOMERULAR FILTRATION RATE, ESTIMATED (EGFR) (12/26/2010 9:49 AM EDT) Creatinine 0.86 0.60 - 1.10 mg/dL [facility] Comment:{CREATININE {[id number]) GFR 76 > OR = 60 mL/min/1.7 3m2 [facility] Comment:{eGFR NON-AFR. AMERI CAN {[id number]) GFR () 88 > OR = 60 mL/min/1.7 3m2 [facility] Comment:{eGFR AMERIC AN {[id number]) 12/26/2010 9:49 AM EDT 12/27/2010 12:33 AM [...] RESULT Final Resul t Performing Organization Address City/[facility] Co de Phone Number [facility] [address] [place] [address] documented in this encounter Visit Diagnoses Diagnosis Rheumatoid arthritis(714.0) Rheumatoid arthritis documented in this encounter Care Teams Play Leader Relationship Specialty Start Date End Date Alberto Pacheco [address] [place] [address] PCP - General 07/19/08 05/24/13 Charly Saxena [facility] [address] [place] [address] PCP - General Internal Medicine 05/25/13 07/16/17 Cheryl Calderon MD [facility] Medicine [address] [place] [address] PCP - General Internal Medicine 07/17/17 documented as of this encounter
--- OUTSIDE RECORDS SUMMARY | 2024-08-28 09:50 | XMS_ITS | Encounter Summary ---
Author Organization [facility] Address [address] [place] [address] Care Team Providers Care Information And Referral Director Name Role Phone Alberto Pacheco Primary Care Provider [phone] Charly Saxena Primary Care Provider [phone] Cheryl Calderon MD Primary Care Provider [phone] Encounter Details Date Type Department Care Team (Late st Contact Info) Description 01/18/2009 Orders Only [facility] Rheumatology [address] [place] [address] Abel Fierro MD [address] [place] [address] Social History Tobacco Use Types Packs/Day Years [...] RATE, ESTIMATED (EGFR) Routine 01/18/2009 Rheumatoid Arthritis ([facility]) Encounter for Long-Term (Current) Use of Other Medications SED RATE ESR Routine 01/18/2009 Rheumatoid Arthritis ([facility]) Encounter for Long-Term (Current) Use of Other Medications CBC 5 PART DIFF Routine 01/18/2009 Rheumatoid Arthritis ([facility]) Encounter for Long-Term (Current) Use of Other Medications ALANINE AMINOTRANSFERASE (ALT), SERUM Routine 01/18/2009 Rheumatoid Arthritis ([facility]) Encounter for Long-Term (Current) Use of Other Medications ASPARTATE AMINOTRANSFERASE (AST), SERUM Routine 01/18/2009 Rheumatoid Arthritis ([facility]) Encounter for Long-Term (Current) Use of Other Medications ALBUMIN Routine 01/18/2009 Rheumatoid Arthritis ([facility]) Encounter for Long-Term (Current) Use of Other Medications documented in this encounter Results * Due to [place] state law, this organization might not be sharing negative HIV tests. * C-REACTIVE PROTEIN (CRP), QUANTITATIVE, SERUM INFLAMMATION (01/18/2009) C REACTIVE PROTEIN (CRP) 0.6 0 - 0.7 MG/DL [facility] 01/18/2009 01/18/2009 8:1 8 PM EDT us Abel Fierro MD LABORATORY Final Result Performing Organization Address City/[facility] Co de Phone Number [facility] [address] [place] [address] * SED RATE ESR (01/18/2009) ESR (ERYTHROCYTE SEDIMENTATION RATE) 5 0 - 30 MM/HR [facility] 01/18/2009 01/18/2009 8:1 8 PM EDT us Abel Fierro MD LAB SAME DAY RESULT Final Resul t Performing Organization Address City/[facility]/ZIP Co de Phone Number [facility] [address] [place] [address] * ALBUMIN (01/18/2009) ALBUMIN 3.8 3.5 - 4.9 G/DL [facility] 01/18/2009 01/18/2009 8:1 8 PM EDT us Abel iFerro MD LAB SAME DAY RESULT Final Resul t Performing Organization Address [facility] de Phone Number [facility] [address] [place] [address] * CREATININE WITH GLOMERULAR FILTRATION RATE, ESTIMATED [...] Final Resul t Performing Organization Address [facility] de Phone Number [facility] [address] [place] [address] * ALANINE AMINOTRANSFERASE (ALT), SERUM (01/18/2009) ALT (SGPT) 20 6 - 40 U/L [facility] 01/18/2009 01/18/2009 8:1 8 PM EDT us Abel Fierro MD LAB SAME DAY RESULT Final Resul t Performing Organization Address [facility] Co de Phone Number [facility] [address] [place] [address] * ASPARTATE AMINOTRANSFERASE (AST), SERUM (01/18/2009) AST (SGOT) 19 10 - 35 U/L [facility] 01/18/2009 01/18/2009 8:1 8 PM EDT us Abel Fierro MD LAB SAME DAY RESULT Final Resul t [facility] [address] [place] [address] * (ABNORMAL) CBC 5 PART DIFF (01/18/2009) [...] RESULT Final Resul t [facility] [address] [place] [address] documented in this encounter Visit Diagnoses Diagnosis Rheumatoid arthritis(714.0) Rheumatoid arthritis Encounter for long-term (current) use of other medications documented in this encounter Care Teams Information And Referral Director Relationship Specialty Start Date End Date Alberto Pacheco [address] [place] [address] PCP - General 07/19/08 05/24/13 Charly Saxena [facility] [place] [address] PCP - General Internal Medicine 05/25/13 07/16/17 Cheryl Calderon MD [facility] Adult Medicine [address] [place] [address] PCP - General Internal Medicine 07/17/17 documented as of this encounter
--- OUTSIDE RECORDS SUMMARY | 2024-08-28 09:50 | XMS_ITS | Encounter Summary ---
Author Organization [facility] Address [address] [place] [address] Care Team Providers Care Facility Specialist Name Role Phone Charly Saxena Primary Care Provider [phone] Cheryl Calderon MD Primary Care Provider [phone] Encounter Details Date Type Department Care Team (Late st Contact Info) Description 04/18/2017 Orders Only [facility] Rheumatology [address] [place] [address] Abel Fierro MD [address] [place] [address] Social History Tobacco Use Types Packs/Day Years [...] 5:02 PM EST Narrative Resulting Agency Comment [id number] us Abel Fierro MD LABORATORY Final Result [facility] [address] [place] [address] * ERYTHROCYTE SEDIMENTATION RATE (ESR), JOSEERGREN (04/18/2017 12:15 PM EST) Sedimentation Rate [place] (ESR) 9 < OR = 30 mm/h [facility] 04/18/2017 12:1 5 PM EST 04/18/2017 5:02 PM EST Narrative Resulting Agency Comment [id number] us Abel Fierro MD LAB SAME DAY RESULT Final Resul t Performing Organization Address City/[facility]/ZIP Co de Phone Number [facility] [address] [place] [address] * CREATININE WITH GLOMERULAR FILTRATION RATE, ESTIMATED (EGFR) (04/18/2017 12:15 PM EST) Creatinine 0.88 0.50 - 0.99 mg/dL [facility] Comment: For patients >49 years of age, the reference limit for Creatinine is approximately 13% higher for people identified as -Honduran. GFR 70 > OR = 60 mL/min/1. [...] needs for GFR calculation. Resulting Agency Comment [id number] us Abel Fierro MD LAB SAME DAY RESULT Final Resul t Performing Organization Address [facility] Co de Phone Number [facility] [address] [place] [address] * ALANINE AMINOTRANSFERASE (ALT), SERUM (04/18/2017 12:15 PM EST) ALT (SGPT) 19 6 - 29 U/L [facility] 04/18/2017 12:1 5 PM EST 04/18/2017 5:02 PM EST Narrative Resulting Agency Comment [id number] us Abel Fierro MD LAB SAME DAY RESULT Final Resul t Performing Organization Address [facility] Co de Phone Number [facility] [address] [place] [address] * ASPARTATE AMINOTRANSFERASE (AST), SERUM (04/18/2017 12:15 PM EST) AST (SGOT) 19 10 - 35 U/L [facility] 04/18/2017 12:1 5 PM EST 04/18/2017 5:02 PM EST Narrative Resulting Agency Comment [id number] us Abel Fierro MD LAB SAME DAY RESULT Final Resul t Performing Organization Address [facility] de Phone Number [facility] [address] [place] [address] * CBC INCLUDES DIFFERENTIAL AND PLATELET COUNT [...] 5:02 PM EST Narrative Resulting Agency Comment [id number] us Abel Fierro MD LAB SAME DAY RESULT Final Resul t Performing Organization Address City/[facility] Co de Phone Number [facility] [address] [place] [address] documented in this encounter Visit Diagnoses Diagnosis Rheumatoid arthritis involving multiple sites with positive rheumatoid factor (HCC) documented in this encounter Care Teams Facility Specialist Relationship Specialty Start Date End Date Charly Saxena [facility] [address] [place] [address] PCP - General Internal Medicine 05/25/13 07/16/17 Cheryl Calderon MD [facility] Adult Medicine [address] [place] [address] PCP - General Internal Medicine 07/17/17 documented as of this encounter
--- OUTSIDE RECORDS SUMMARY | 2024-08-28 09:50 | XMS_ITS | Encounter Summary ---
Author Organization [facility] Address [address] [place] [address] Care Team Providers Care Gas Or Water Meter Installer Name Role Phone Charly Saxena Primary Care Provider [phone] Cheryl Calderon MD Primary Care Provider [phone] Encounter Details Date Type Department Care Team (Late st Contact Info) Description 07/15/2017 Orders Only [facility] Rheumatology [address] [place] [address] Abel Fierro MD [address] [place] [address] Social History Tobacco Use Types Packs/Day Years [...] approximately 13% higher for people identified as -Monegasque. GFR 93 > OR = 60 mL/min/1. [...] needs for GFR calculation. Resulting Agency Comment [id number] us Abel Fierro MD LAB SAME DAY RESULT Final Resul t [facility] [address] [place] [address] * ALANINE AMINOTRANSFERASE (ALT), SERUM (07/15/2017 1:44 PM EDT) ALT (SGPT) 23 6 - 29 U/L [facility] 07/15/2017 1:44 PM EDT 07/15/2017 6:18 PM EDT Narrative Resulting Agency Comment [id number] Abel Fierro MD LAB SAME DAY RESULT Final Resul t Performing Organization Address City/[facility]/ZIP Co de Phone Number [facility] [address] [place] [address] * ASPARTATE AMINOTRANSFERASE (AST), SERUM (07/15/2017 1:44 PM EDT) AST (SGOT) 28 10 - 35 U/L [facility] 07/15/2017 1:44 PM EDT 07/15/2017 6:18 PM EDT Narrative Resulting Agency Comment [id number] us Abel Fierro MD LAB SAME DAY RESULT Final Resul t Performing Organization Address [facility] de Phone Number [facility] [address] [place] [address] * (ABNORMAL) CBC INCLUDES DIFFERENTIAL AND PLATELET [...] 6:18 PM EDT Narrative Resulting Agency Comment [id number] us Abel Fierro MD LAB SAME DAY RESULT Final Resul t [facility] [address] [place] [address] documented in this encounter Visit Diagnoses Diagnosis Rheumatoid arthritis involving multiple sites, unspecified rheumatoid factor presence documented in this encounter Care Teams Gas Or Water Meter Installer Relationship Specialty Start Date End Date Charly Saxena [facility] [address] [place] [address] PCP - General Internal Medicine 05/25/13 07/16/17 Cheryl Calderon MD [facility] Adult Medicine [address] [place] [address] PCP - General Internal Medicine 07/17/17 documented as of this encounter
--- OUTSIDE RECORDS SUMMARY | 2024-08-28 09:50 | XMS_ITS | Encounter Summary ---
Author Organization [facility] Address [address] [place] [address] Care Team Providers Care Caustic Cresylate Shift Superintendent Name Role Phone Charly Saxena Primary Care Provider [phone] Cheryl Calderon MD Primary Care Provider [phone] Encounter Details Date Type Department Care Team (Late st Contact Info) Description 05/24/2016 Orders Only [facility] Rheumatology [address] [place] [address] Abel Fierro MD [address] [place] [address] Social History Tobacco Use Types Packs/Day Years [...] approximately 13% higher for people identified as -Dutch. GFR 66 > OR = 60 mL/min/1. [...] needs for GFR calculation. Resulting Agency Comment [id number] us Abel Fierro MD LAB SAME DAY RESULT Final Resul t [facility] [address] [place] [address] * ALANINE AMINOTRANSFERASE (ALT), SERUM (05/24/2016 10:20 AM EST) ALT (SGPT) 27 6 - 29 U/L [facility] 05/24/2016 10:2 0 AM EST 05/24/2016 5:04 PM EST Narrative Resulting Agency Comment [id number] us Abel Fierro MD LAB SAME DAY RESULT Final Resul t Performing Organization Address City/[facility]/ZIP Co de Phone Number [facility] [address] [place] [address] * ASPARTATE AMINOTRANSFERASE (AST), SERUM (05/24/2016 10:20 AM EST) AST (SGOT) 23 10 - 35 U/L [facility] 05/24/2016 10:2 0 AM EST 05/24/2016 5:04 PM EST Narrative Resulting Agency Comment [id number] us Abel Fierro MD LAB SAME DAY RESULT Final Resul t Performing Organization Address [facility] de Phone Number [facility] [address] [place] [address] * (ABNORMAL) CBC INCLUDES DIFFERENTIAL AND PLATELET [...] 5:04 PM EST Narrative Resulting Agency Comment [id number] us Abel Fierro MD LAB SAME DAY RESULT Final Resul t Performing Organization Address City/State/[facility] Co de Phone Number [facility] [address] [place] [address] documented in this encounter Visit Diagnoses Diagnosis Rheumatoid arthritis involving multiple sites with positive rheumatoid factor (HCC) [M05.79] documented in this encounter Care Teams Caustic Cresylate Shift Superintendent Relationship Specialty Start Date End Date Charly Saxena [facility] [address] [place] [address] PCP - General Internal Medicine 05/25/13 07/16/17 Cheryl Calderon MD [facility] Adult Medicine [address] [place] [address] PCP - General Internal Medicine 07/17/17 documented as of this encounter
--- OUTSIDE RECORDS SUMMARY | 2024-08-28 09:50 | XMS_ITS | Encounter Summary ---
Author Organization [facility] Address [address] [place] [address] Care Team Providers Care Trampoline Team Coach Name Role Phone Alberto Pacheco Primary Care Provider [phone] Charly Saxena Primary Care Provider Cheryl Calderon MD Primary Care Provider [phone] Reason for Visit * Reason Comments E-prescribing Refill Request Encounter Details Date Type Department Care Team (Late st Contact Info) Description 06/16/2011 Refill [facility] Rheumatology [address] [place] [address] Abel Fierro MD [address] [place] [address] E-prescribing Refill Request Social History Tobacco Use [...] her cruise. xc: Alberto Pacheco MD [address] [facility] Next OV: No future appointments. Pertinent lab [...] on filedocumented in this encounter Care Teams Trampoline Team Coach Relationship Specialty Start Date End Date Alberto Pacheco [address] [place] [address] PCP - General 07/19/08 05/24/13 Charly Saxena [facility] [address] [place] [address] PCP - General Internal Medicine 05/25/13 07/16/17 Cheryl Calderon MD [facility] Adult Medicine [address] [place] [address] PCP - General Internal Medicine 07/17/17 documented as of this encounter
--- OUTSIDE RECORDS SUMMARY | 2024-08-28 09:51 | XMS_ITS | Encounter Summary ---
Author Organization [facility] Address [address] [place] [address] Care Team Providers Care Refrigerator Room Clerk Name Role Phone Alberto Pacheco Primary Care Provider [phone] Charly Saxena Primary Care Provider [phone] Cheryl Calderon MD Primary Care Provider [phone] Encounter Details Date Type Department Care Team (Late st Contact Info) Description 01/23/2010 Orders Only [facility] Rheumatology [address] [place] [address] Abel Fierro MD [address] [place] [address] Social History Tobacco Use Types Packs/Day Years [...] t Performing Organization Address City/[facility]/ZIP Co de Phone Number [facility] [address] [place] [address] * (ABNORMAL) C-REACTIVE PROTEIN (CRP), QUANTITATIVE, SERUM INFLAMMATION (01/23/2010) Pathologist [facility] C REACTIVE PROTEIN (CRP) 1.5(H) 0 - 0.7 MG/DL [facility] 01/23/2010 01/23/2010 9:1 6 PM EDT Abel Fierro MD LABORATORY Final Result Performing Organization Address City/[facility]/ZIP Co de Phone Number [facility] [address] [place] [address] * CREATININE WITH GLOMERULAR FILTRATION RATE, ESTIMATED [...] RESULT Final Resul t [facility] [address] [place] [address] * (ABNORMAL) CBC 5 PART DIFF (01/23/2010) [...] RESULT Final Resul t Performing Organization Address [facility] de Phone Number [facility] [address] [place] [address] * ASPARTATE AMINOTRANSFERASE (AST), SERUM (01/23/2010) AST (SGOT) 23 10 - 35 U/L [facility] 01/23/2010 01/23/2010 9:1 6 PM EDT us Abel Fierro MD LAB SAME DAY RESULT Final Resul t Performing Organization Address [facility] de Phone Number [facility] [address] [place] [address] * ALANINE AMINOTRANSFERASE (ALT), SERUM (01/23/2010) ALT (SGPT) 26 6 - 40 U/L [facility] 01/23/2010 01/23/2010 9:1 6 PM EDT us Abel Fierro MD LAB SAME DAY RESULT Final Resul t Performing Organization Address [facility] de Phone Number [facility] [address] [place] [address] documented in this encounter Visit Diagnoses Diagnosis Rheumatoid arthritis(714.0)- Primary Rheumatoid arthritis documented in this encounter Care Teams Refrigerator Room Clerk Relationship Specialty Start Date End Date Alberto Pacheco [address] [place] [address] PCP - General 07/19/08 05/24/13 Charly Saxena [facility] [address] [place] [address] PCP - General Internal Medicine 05/25/13 07/16/17 Cheryl Calderon MD [facility] [address] [place] [address] PCP - General Internal Medicine 07/17/17 documented as of this encounter
--- OUTSIDE RECORDS SUMMARY | 2024-08-28 09:51 | XMS_ITS | Encounter Summary ---
Author Organization [facility] Address [address] [place] [address] Care Team Providers Care Production Painter Name Role Phone Alberto Pacheco Primary Care Provider [phone] Charly Saxena Primary Care Provider [phone] Cheryl Calderon MD Primary Care Provider [phone] Encounter Details Date Type Department Care Team (Late st Contact Info) Description 05/13/2009 Orders Only [facility] Rheumatology [address] [place] [address] Abel Fierro MD [address] [place] [address] Social History Tobacco Use Types Packs/Day Years [...] MD LABORATORY Final Result [facility] [address] [place] [address] * SED RATE ESR (05/13/2009) ESR (ERYTHROCYTE SEDIMENTATION RATE) 19 0 - 30 MM/HR [facility] 05/13/2009 05/13/2009 8:0 1 PM EST us Abel Fierro MD LAB SAME DAY RESULT Final Resul t Performing Organization Address [facility] de Phone Number [facility] [address] [place] [address] * ALANINE AMINOTRANSFERASE (ALT), SERUM (05/13/2009) ALT (SGPT) 22 6 - 40 U/L [facility] 05/13/2009 05/13/2009 8:0 1 PM EST us Abel Fierro MD LAB SAME DAY RESULT Final Resul t Performing Organization Address [facility] Phone Number [facility] [address] [place] [address] * ASPARTATE AMINOTRANSFERASE (AST), SERUM (05/13/2009) AST (SGOT) 21 10 - 35 U/L [facility] 05/13/2009 05/13/2009 8:0 1 PM EST us Abel Fierro MD LAB SAME DAY RESULT Final Resul t Performing Organization Address [facility] Phone Number [facility] [address] [place] [address] * (ABNORMAL) CBC 5 PART DIFF (05/13/2009) [...] RESULT Final Resul t [facility] [address] [place] [address] documented in this encounter Visit Diagnoses Diagnosis Rheumatoid arthritis(714.0) Rheumatoid arthritis documented in this encounter Care Teams Production Painter Relationship Specialty Start Date End Date Alberto Pacheco [address] [place] [address] PCP - General 07/19/08 05/24/13 Charly Saxena [facility] [address] [place] [address] PCP - General Internal Medicine 05/25/13 07/16/17 Cheryl Calderon MD [facility] Adult Medicine [address] [place] [address] PCP - General Internal Medicine 07/17/17 documented as of this encounter
--- OUTSIDE RECORDS SUMMARY | 2024-08-28 09:51 | XMS_ITS | Encounter Summary ---
Author Organization [facility] Address [address] [place] [address] Care Team Providers Care Analytical Chemistry Teacher Name Role Phone Alberto Pacheco Primary Care Provider [phone] Charly Saxena Primary Care Provider [phone] Cheryl Calderon MD Primary Care Provider [phone] Encounter Details Date Type Department Care Team (Late st Contact Info) Description 12/06/2009 Orders Only [facility] Rheumatology [address] [place] [address] Abel Fierro MD [address] [place] [address] Social History Tobacco Use Types Packs/Day Years [...] Final Resul t Performing Organization Address City/State/[facility] Co de Phone Number [facility] [address] [place] [address] * (ABNORMAL) CBC 5 PART DIFF (12/06/2009) [...] t Performing Organization Address [facility] de Phone Number [facility] [address] [place] [address] * ASPARTATE AMINOTRANSFERASE (AST), SERUM (12/06/2009) AST (SGOT) 18 10 - 35 U/L [facility] 12/06/2009 12/06/2009 9:4 5 PM EDT Abel Fierro MD LAB SAME DAY RESULT Final Resul t Performing Organization Address [facility] de Phone Number [facility] [address] [place] [address] * ALANINE AMINOTRANSFERASE (ALT), SERUM (12/06/2009) ALT (SGPT) 23 6 - 40 U/L [facility] 12/06/2009 12/06/2009 9:4 5 PM EDT Abel Fierro MD LAB SAME DAY RESULT Final Resul t Performing Organization Address [facility] de Phone Number [facility] [address] [place] [address] documented in this encounter Visit Diagnoses Diagnosis Rheumatoid arthritis(714.0) Rheumatoid arthritis documented in this encounter Care Teams Analytical Chemistry Teacher Relationship Specialty Start Date End Date Alberto Pacheco [address] [place] [address] PCP - General 07/19/08 05/24/13 Charly Saxena [facility] [address] [place] [address] PCP - General Internal Medicine 05/25/13 07/16/17 Cheryl Calderon MD [facility] [address] [place] [address] PCP - General Internal Medicine 07/17/17 documented as of this encounter
== END 2024-08-28 09:56 | disposition home or self-care (01) ==
LOC: HO.PMC 09:13
PROVIDERS: PCP Nurse Practitioner Family; Visit Provider Internal Medicine
DX: M79.18 Myalgia, other site (principal)
CPT/HCPCS: 20553

== ENCOUNTER → 2024-08-28 09:12 | Outpatient (BNVA) | payer MEDICARE, BC, SELFPAY | PROVIDERS: PCP Nurse Practitioner Family; Visit Provider Internal Medicine | DX: M79.18 Myalgia, other site (principal) | CPT/HCPCS: 20553 ==

== ENCOUNTER 2024-10-23 10:16 | Outpatient (AMB) | payer MEDICARE, BC, SELFPAY ==
--- NOTE | 2024-10-23 10:19 | MHC.OFFVIS ---
Vital Signs 10/23/24 10:21 Height 5 ft 6 in Weight 169 lb BMI 27.3 BP 148/62 H Blood Pressure Location Lt brachial Position Sitting Respiration 16 Pulse 88 Pulse Source Pulse Oximeter Pulse Oximetry (%) 96 Oxygen Delivery Method Room Air Intake Visit Reasons: Trigger Point Inj Transplant Worker Required: No Building Guard Deputy Sheriff: Building Guard Deputy Sheriff Present Accompanied by: Julito Tirado Allergies codeine Allergy (Mild, Verified 10/23/24 10:22) Paleness Gold Salts Allergy (Mild, Verified 10/23/24 10:22) Rash Sulfa (Sulfonamide Antibiotics) Allergy (Mild, Verified 10/23/24 10:22) Swelling Medication List - Last Reconciled 10/23/24 by Shayy Antunez LPN alendronate 70 mg PO QWEEK apixaban (Eliquis) 5 mg PO BID ascorbic acid (vitamin C) mg PO biotin 1 mg PO DAILY carvedilol 12.5 mg PO BID cholecalciferol (vitamin D3) 10 mcg PO DAILY cyclobenzaprine 5 mg PO TID PRN escitalopram oxalate 10 mg PO DAILY estradiol 0.01%(0.1mg/gram) grams vaginal NEEDED PRN fluticasone propionate 50 mcg/actuation 1 spray intranasal DAILY folic acid 1 mg PO DAILY furosemide mg PO levothyroxine 88 mcg PO DAILY lorazepam 0.5 mg PO Q4H PRN losartan 25 mg PO DAILY methenamine hippurate 1 g PO BID methotrexate sodium 15 mg (6 x 2.5 mg) PO QWEEK ondansetron 4 mg PO NEEDED oxybutynin chloride ER 10 mg PO DAILY potassium chloride ER 20 mEq PO BID prednisone 2.5 - 5 mg (0.5 - 1 x 5 mg) PO DAILY 90 days rituximab (Rituxan) 1,000 mg (100 mL) IV [id number] sennosides 8.6 mg PO BEDTIME sucralfate 1 g PO QID vancomycin mg PO HPI HPI Trigger Point Inj: Details: Here for TPIs PFSH Medical History Anxiety and depression Lacunar infarction Diverticulitis Diverticulosis Endometriosis Schatzki's ring Drug-induced lupus erythematosus Encounter for testing for latent tuberculosis infection Afib Osteopenia of multiple sites Rheumatoid arthritis involving multiple sites with positive rheumatoid factor Vitamin D deficiency Primary osteoarthritis of both knees Surgical History H/O unilateral oophorectomy H/O cataract extraction History of bladder suspension procedure H/O elbow replacement H/O tubal ligation History of cholecystectomy History of ankle surgery H/O hand surgery Family History Mother Diabetes Sister Diabetes Pancreatic cancer Father Pancreatic cancer Seizures Social History Household Members: Spouse Alcohol intake: never Patient Tobacco Use Status: Never used Tobacco Current occupational status: disabled Physical Exam Vital Signs: Last Vital Signs Pulse 88 10/23/24 10:21 Resp 16 10/23/24 10:21 BP 148/62 H 10/23/24 10:21 Pulse Ox 96 10/23/24 10:21 Oxygen Delivery Method Room Air 10/23/24 10:21 BMI result Body Mass Index 27.3 Office Procedures Injection Trigger Point Multi Pre-procedure diagnosis: Myofascial pain. Post-procedure diagnosis: Myofascial pain. Site and number of trigger points: Bilateral cervicalis Bilateral occipitalis? Bilateral trapezius Solution: Total volume administered 10 ml (ropivacaine 0.25%). The procedure, its benefits, and its risks were explained to the patient and all questions were answered. Prior to the start of the procedure, a ?time out? was performed to confirm correct patient, procedure, and laterality. Trigger points were identified by manual palpation and marked. The skin was cleaned with Chloraprep. A 1.5 inch 25 G needle was used. Each of the trigger points were approximated and elevated in the direction away from the body. Dry needling then took place for five seconds. Approximately 0.5 ml to 1 ml of injectate was delivered to the trigger point followed by dry needling for five seconds. This process was repeated at each trigger point site. The patient tolerated the procedure well. The patient tolerated the procedure well, without complication. The patient denied any numbness, paresthesias, or weakness. Post-procedure vitals were recorded as part of the nursing discharge note in electronic medical record. Following a period of observation, the patient was discharged in stable condition with written discharge instructions. Trigger Point Multiple: 10883- Trigger point injection =/>3 Assessment & Plan Assessment & Plan (1) Myofascial pain syndrome, cervical: Code(s): M79.18 - Myalgia, other site Category: Medical Plan Patient is status post TPIs. Patient tolerated procedure well and was discharged home in stable condition with discharge instructions. All questions were answered. We will follow-up via telephone or in clinic to assess response to therapy. A follow-up appointment was made during today's visit. Coding Level of Care Code Procedure Only Diagnoses Myofascial pain syndrome, cervical M79.18 CPT Codes Details - Trigger Point Multiple: 47934- Trigger point injection =/>3 ([id number])
[2024-10-23 10:21] VITALS: BP 148/62; PULSE 88; RESP 16; O2SAT 96; BMI 27.3
--- OUTSIDE RECORDS SUMMARY | 2024-10-23 10:59 | XMS_ITS | Encounter Summary ---
Author Organization [facility] Address [address] [place] [address] Care Team Providers Care Scientist Immunology Name Role Phone Cheryl Calderon MD Primary Care Provider [phone] Reason for Visit * Reason Comments E-prescribing Refill Request Encounter Details Date Type Department Care Team (Late st Contact Info) Description 06/08/2019 Refill [facility]. Rheumatology [address] [place] [id number] Melanie Aguirre MD [address] [place] [address] E-prescribing Refill Request Social History Tobacco Use [...] Phone 06/19/19 1:45 PM Melanie Aguirre MD [facility] Rheumatology [phone] 08/04/19 2:40 PM Liliana Calderon NP [facility] Hematology/Oncology [phone] 11/10/19 1:30 PM Lyndsay Lopez MD [facility] Ophthalmology [phone] Pertinent lab results: Lab Results Component Value [...] on filedocumented in this encounter Care Teams Scientist Immunology Relationship Specialty Start Date End Date Cheryl Calderon MD [facility] Adult Medicine [address] [place] [id number] PCP - General Internal Medicine 07/17/17 documented as of this encounter
== END 2024-10-23 11:06 | disposition home or self-care (01) ==
LOC: HO.PMC 10:16
PROVIDERS: PCP Nurse Practitioner Family; Visit Provider Internal Medicine
DX: M79.18 Myalgia, other site (principal)
CPT/HCPCS: 20553

== ENCOUNTER → 2024-10-23 10:16 | Outpatient (BNVA) | payer MEDICARE, BC, SELFPAY | PROVIDERS: PCP Nurse Practitioner Family; Visit Provider Internal Medicine | DX: M79.18 Myalgia, other site (principal) | CPT/HCPCS: 20553 ==

== ENCOUNTER 2024-12-18 10:23 | Outpatient (AMB) | payer MEDICARE, BC, SELFPAY ==
--- NOTE | 2024-12-18 10:24 | MHC.OFFVIS ---
Vital Signs 12/18/24 10:25 Height 5 ft 6 in Weight 169 lb BMI 27.3 BP 181/85 H Blood Pressure Location Lt brachial Position Sitting Respiration 16 Pulse 87 Pulse Source Pulse Oximeter Pulse Oximetry (%) 96 Oxygen Delivery Method Room Air Intake Visit Reasons: Trigger Point Inj Immigration Associate Required: No Gas Line Installer: Gas Line Installer Present Accompanied by: Jultio Tirado Allergies codeine Allergy (Mild, Verified 12/18/24 10:27) Paleness Gold Salts Allergy (Mild, Verified 12/18/24 10:27) Rash Sulfa (Sulfonamide Antibiotics) Allergy (Mild, Verified 12/18/24 10:27) Swelling Medication List - Last Reconciled 12/18/24 by Shayy Antunez LPN alendronate 70 mg PO QWEEK apixaban (Eliquis) 5 mg PO BID ascorbic acid (vitamin C) mg PO biotin 1 mg PO DAILY carvedilol 12.5 mg PO BID cholecalciferol (vitamin D3) 10 mcg PO DAILY cyclobenzaprine 5 mg PO TID PRN escitalopram oxalate 10 mg PO DAILY estradiol 0.01%(0.1mg/gram) grams vaginal NEEDED PRN fluticasone propionate 50 mcg/actuation 1 spray intranasal DAILY folic acid 1 mg PO DAILY furosemide mg PO levothyroxine 88 mcg PO DAILY lorazepam 0.5 mg PO Q4H PRN losartan 25 mg PO DAILY methenamine hippurate 1 g PO BID methotrexate sodium 15 mg (6 x 2.5 mg) PO QWEEK ondansetron 4 mg PO NEEDED oxybutynin chloride ER 10 mg PO DAILY potassium chloride ER 20 mEq PO BID prednisone 2.5 - 5 mg (0.5 - 1 x 5 mg) PO DAILY 90 days rituximab (Rituxan) 1,000 mg (100 mL) IV [id number] sennosides 8.6 mg PO BEDTIME sucralfate 1 g PO QID vancomycin mg PO HPI HPI Trigger Point Inj: Details: History of Present Illness The patient is a 69-year-old female presenting with cervical myofascial pain syndrome. She reports that the pain is more severe on the left side, although it affects both sides of her neck and extends to the head. The patient has been receiving trigger point injections, which have provided relief in the past. The patient is currently on blood thinners, which may affect the procedure. Pain Description - Location: Bilateral neck, more severe on the left side, extending to the head - Relief: Previous trigger point injections have been effective Procedure - Procedure: Bilateral cervical trapezium and rhomboid trigger point injections, bilateral greater and lesser occipital nerve blocks using landmark technique. - Technique: Dry needling and injection of 0.5 mL ropivacaine 0.25% at each trigger site. - Occipital nerve blocks: 3 mL of ropivacaine 0.5% injected for the greater and lesser occipital nerves on each side. - Outcome: Patient tolerated the procedure well with no immediate bruising or bleeding. [facility] Medical History Anxiety and depression Lacunar infarction Diverticulitis Diverticulosis Endometriosis Schatzki's ring Drug-induced lupus erythematosus Encounter for testing for latent tuberculosis infection Afib Osteopenia of multiple sites Rheumatoid arthritis involving multiple sites with positive rheumatoid factor Vitamin D deficiency Primary osteoarthritis of both knees Surgical History H/O unilateral oophorectomy H/O cataract extraction History of bladder suspension procedure H/O elbow replacement H/O tubal ligation History of cholecystectomy History of ankle surgery H/O hand surgery Family History Mother Diabetes Sister Diabetes Pancreatic cancer Father Pancreatic cancer Seizures Social History Household Members: Spouse Alcohol intake: never Patient Tobacco Use Status: Never used Tobacco Current occupational status: disabled Physical Exam Vital Signs: Last Vital Signs Pulse 87 12/18/24 10:25 Resp 16 12/18/24 10:25 BP 181/85 H 12/18/24 10:25 Pulse Ox 96 12/18/24 10:25 Oxygen Delivery Method Room Air 12/18/24 10:25 BMI result Body Mass Index 27.3 Assessment & Plan Assessment & Plan (1) Myofascial pain syndrome, cervical: Code(s): M79.18 - Myalgia, other site Category: Medical (2) Occipital neuralgia: Code(s): M54.81 - Occipital neuralgia Category: Medical Plan Patient is status post cervical bilateral TPIs and GONB/LONB. Patient tolerated procedure well and was discharged home in stable condition with discharge instructions. All questions were answered. Follow up prn. Coding Level of Care Code Procedure Only Diagnoses Myofascial pain syndrome, cervical M79.18 Occipital neuralgia M54.81
[2024-12-18 10:25] VITALS: BP 181/85; PULSE 87; RESP 16; O2SAT 96; BMI 27.3
--- OUTSIDE RECORDS SUMMARY | 2024-12-18 10:26 | XMS_ITS | Encounter Summary ---
Author Organization [facility] Address [address] [place] [address] Care Team Providers Care Fret Saw Operator Name Role Phone Cheryl Calderon MD Primary Care Provider [phone] Reason for Visit * Reason Comments E-prescribing Refill Request Encounter Details Date Type Department Care Team (Late st Contact Info) Description 06/08/2019 Refill [facility] Rheumatology [address] [place] [phone] Melanie Aguirre MD E-prescribing Refill Request Social History Tobacco [...] Faxed/E-prescribed medication renewal request(s) for Opal Juares 64 y.o. female received from pharmacy. Verified [...] Phone 06/19/19 1:45 PM Melanie Aguirre MD [facility] Rheumatology [phone] 08/04/19 2:40 PM Liliana Calderon NP [facility] Hematology/Oncology [phone] 11/10/19 1:30 PM Lyndsay Lopez MD [facility] Ophthalmology [phone] Pertinent lab results: Lab Results Component Value [...] ??? Elbow pain 06/03/2012 ??? Rheumatoid arthritis(714.0) ([facility]) 09/29/2010 Followed by rheumatology [...] on filedocumented in this encounter Care Teams Fret Saw Operator Relationship Specialty Start Date End Date Cheryl Calderon MD [facility] Adult Medicine [address] [place] [id number] PCP - General Internal Medicine 07/17/17 documented as of this encounter
--- OUTSIDE RECORDS SUMMARY | 2024-12-18 10:26 | XMS_ITS | Encounter Summary ---
Author Organization [facility] Address [address] [place] [address] Phone Care Team Providers Care Hand Alterations Seamstress Name Role Phone Cash Fernandes MD Unavailable [phone] Seven Menchaca MD Unavailable Chavo Jack MD Primary Care Provider [phone] Keren Poon [facility] Primary Care Provid er Chavo Jack MD Unavailable Willi Wells MD Unavailable Unavailable Jose Thakur MD Unavailable Dana Rucker TWIST MAKER Unavailable [phone] Jonathan Alvarez MD Unavailable [phone] Anival Borja MD Unavailable [phone] Lyndsay Reynoso TWIST MAKER Unavailable Gutierrez Pittman MD Unavailable [phone] Encounter Details Date Type Department Care Team (Late st Contact Info) Description 01/08/2023 Procedure Pass [facility] Endoscopy Admitting Dept Virtual Department [address] [place] [address] Social History Tobacco Use Types Packs/Day Years [...] with a working camera? Not on file Comments No Sex and Gender Information Value Date Recorded Sex Assigned at Female 08/18/2020 10:48 PM EDT Legal Sex Female 1:11 PM EDT Gender Identity Female 08/18/2020 10:48 PM EDT Sexual Orientation Straight 09/27/2020 4: 02 PM EDT documented as of this encounter Plan of Treatment Upcoming Encounters Date Type Department Care Team (Late st Contact Info) Description 12/22/2024 2:30 PM EDT Office Visit [address] [address] Dana Rucker, [facility] [address] [address] [email or web address] Nereyda Wong, PT [address] [place] [address] 12/25/2024 2:30 PM EDT Office Visit [facility] Medical [facility] Infectious Diseases [address] [place] [address] Dana Rucker, [facility] [address] [address] 01/01/2025 1:00 PM EDT Office Visit [address] [address] Chaim Danaverenice Camilo, [facility] [address] [address] [email or web address] Nereyda Wong, PT [address] [place] [address] 01/07/2025 2:30 PM EDT Office Visit [facility] Pulmonary, Allergy and Critical Care Medicine [address] [place] [address] Jose Thakur MD [address] [place] [address] 01/19/2025 2:30 PM EDT Office Visit [address] [address] Dana Rucker, [facility] 15 [facility], [address] [place] [address] Nereyda Wong, PT [address] [place] [address] 01/26/2025 2:30 PM EDT Office Visit [facility] [address] [place] [address] Dana Rucker, [facility] 15 [facility], [address] [place] [address] Nereyda Wong, PT [address] [place] [address] 01/29/2025 3:00 PM EDT Office Visit [address] [place] [address] Keren Poon, [facility] [employer] [address] [address] 02/01/2025 3:00 PM EDT Office Visit [address] [place] [address] Keren Poon, [facility] [employer] [address] [address] 03/02/2025 2:30 PM EST Office Visit [address] [address] Dana Rucker, [facility] 15 [facility], [address] [place] [address] Nereyda Wong, PT [address] [place] [address] 03/09/2025 2:30 PM EST Office Visit [facility] [address] [place] [address] Dana Rucker, [facility] [address] [address] Nereyda Wong, PT [address] [place] [address] 03/16/2025 2:30 PM EST Office Visit [facility] [address] [place] [address] Dana Rucker, [facility] [address] [address] Nereyda Wong, PT [address] [place] [address] 06/03/2025 2:00 PM EST Office Visit [facility] Medical [facility] [address] [place] [address] [place] [address] Keren Poon, [employer] [address] [place] [address] documented as of this encounter Visit Diagnoses [...] as of this encounter Care Teams Hand Alterations Seamstress Relationship Specialty Start Date End Date Chavo Jack MD [address] [place] [address] PCP - General Internal Medicine 09/18/22 01/30/23 Keren Poon CNP [address] [place] [address], [address] [place] [address] [email or web address] PCP - General Family Medicine 01/31/23 Cash Fernandes MD [address] [place] [address] Gastroenterology 08/23/20 Seven Menchaca MD [address] [place] [address] Insurance Assigned Provider 08/04/22 08/03/23 Chavo Jack MD [address] [place] [address] Insurance Assigned Provider 08/03/23 05/04/24 Willi Wells MD [address] [facility] Internal [facility] [place] [address] Rheumatology 02/04/24 Jose Thakur MD [address] [place] [address] Compliance Review Specialist Pulmonary Disease 03/17/24 Dana Rucker FNP 15 [facility], 2nd [place] [address] Nurse Practitioner Infectious Diseases 05/21/24 Jonathan Alvarez MD [address] [place] [address], [address] [place] [address] Urology 05/14/23 Anival Borja MD [address] [place] [address], [address] [place] [address] Neurologist Neurology 01/04/23 Lyndsay Reynoso FNP [address] [place] [address] Nurse Practitioner Pain Medicine 05/27/22 Gutierrez Pittman MD [address] [place] [phone] Engineering Surveyor Cardiology 05/27/24 documented as of this encounter Additional Source Comments The information contained in this document represents components of the legal health record. It is not the complete legal health record.[facility]
== END 2024-12-18 11:04 | disposition home or self-care (01) ==
LOC: HO.PMC 10:23
PROVIDERS: PCP Nurse Practitioner Family; Visit Provider Internal Medicine
DX: M54.81 Occipital neuralgia (principal); M79.18 Myalgia, other site
CPT/HCPCS: 20552; 64405; 64450

== ENCOUNTER → 2024-12-18 10:23 | Outpatient (BNVA) | payer MEDICARE, BC, SELFPAY | PROVIDERS: PCP Nurse Practitioner Family; Visit Provider Internal Medicine | DX: M79.18 Myalgia, other site (principal); M54.81 Occipital neuralgia | CPT/HCPCS: 20552; 64450; J2795 ==

== ENCOUNTER 2024-12-22 16:00 | Outpatient (REF) | payer MEDICARE, BC, SELFPAY ==
--- OUTSIDE RECORDS SUMMARY | 2011-10-09 | XMS_ITS | Encounter Summary ---
Author Organization [facility] Address [address] [place] [address] Phone Care Team Providers Care Crime Analyst Name Role Phone Unavailable Primary Care Provider Unavailabl e Encounter Details Date Type Department Care Team (Late st Contact Info) Description 10/09/2011 Hospital Encounter [facility],Outside Imaging [address] [place], [place] [id number] System, Provider [place] In, [place] [address] Social History Tobacco Use Types Packs/Day Years Used Date Smoking Tobacco: Never Smokeless Tobacco: Never Alcohol Use Standard Drinks/Week Comments Not Currently 0 (1 standard drink = 0.6 oz pur e alcohol) Home Health Assessment: Transportation Answer Date Recorded Lack of Transportation (Medical) No 08/10/2024 Lack of Transportation (Non-Medical) No 08/10/2024 Patient Unable or Declines to Respond No 08/10/2024 Child or Family Care Answer Date Record ed Do you have problems with on e of the following making it difficult for you to work, study, or receive health care? No 09/26/2020 Education Answer Date Recorded Are you interested in more education? Not on karen e 09/27/2022 Are you concerned about learning? Not on file 09/27/2022 No 09/27/2022 No 09/27/2022 Food Answer Date Recorded Within the past 6 months we worried whether our food would run out before we got money to buy more. Never True 07/11/2024 Within the past 6 months the food we bought just didn't last and we didn't have enough money to get more. Never True Residential Stability Answer Date Recor ded What is your housing situation today? I have jo sing 07/11/2024 How many times have you move d in the past 12 months? Zero (I did not move) 07/11/2024 Paying for Meds Answer Date Recorded Do you have trouble paying for medicines? No 07/11/2024 Paying Utility Bills Answer Date Record ed Do you have trouble paying your heating or elect ricity bill? No 07/11/2024 Transportation Answer Date Recorded Has the lack of transportati on kept you from medical appointments or from getting medications? No 07/11/2024 Unemployment Answer Date Recorded Are you currently unemployed or working on a part-time or temporary basis, and looking for work? No 09/26/2020 Digital Access Answer Date Recorded No 07/11/2024 Yes 07/11/2024 Do you have reliable internet access at home? Ye s 07/11/2024 Do you have a device (e.g., phone, tablet, computer) with a working camera? Yes 07/11/2024 Intimate Partner Violence Answer Date R ecorded Are you denied basic needs s uch as food, clothing, or medical care? No 07/10/2024 In the past 12 months have y ou been in a relationship with a person who hurts, threatens, or tries to control you? No 07/10/2024 Are you denied basic needs s uch as food, clothing, or medical care? No 07/10/2024 In the past 12 months have y ou been in a relationship with a person who hurts, threatens, or tries to control you? No 07/10/2024 Comments No Sex and Gender Information Value Date Recorded Sex Assigned at Female 08/18/2020 10:48 PM EDT Legal Sex Female 1:11 PM EDT Gender Identity Female 08/18/2020 10:48 PM EDT Sexual Orientation Straight 09/27/2020 4: 02 PM EDT documented as of this encounter Functional Status * Calculated C-SSRS Risk Score (Lifetime/Recent) Answer Date of Assessment Author No Risk Indicated 07/10/2024 6:28 AM EDT Cecy العراقي RN * [place] Suicide Severity Rating Scale (Screener/Recent Self-Report) Question Answer Date of Assessment Author 1. Wish to be (Past 1 Month) No 07/10/2024 6:28 AM EDT Cecy Fontana RN 2. Non-Specific Active Suicidal Thoughts (Past 1 Month) No 07/10/2024 6:28 AM EDT Cecy Fontana RN 6. Suicidal Behavior (Lifetime) No 07/10/2024 6:28 AM EDT Cecy Fontana RN documented as of this encounter Plan of Treatment Upcoming Encounters Date Type Department Care Team (Late st Contact Info) Description 12/25/2024 2:30 PM EDT Office Visit [facility] Infectious Diseases [address] [place] [address] Dana Rucker [facility] [address] [address] 01/01/2025 1:00 PM EDT Office Visit [facility] Services [address] [place] [address] Dana Rucker [facility] [address] [address] Nereyda Wong, PT 380 [place] [address] 01/07/2025 2:30 PM EDT Office Visit [facility] 10 [place] [address] Jose Thakur MD 30 [place] [address] 01/19/2025 2:30 PM EDT Office Visit [facility] 380 [place] [address] Dana Rucker, FOLDER MACHINE [address] [address] Russell Wongcy, PT 380 [place] [address] 01/26/2025 2:30 PM EDT Office Visit [facility] 380 [place] [address] Dana Rucker, FOLDER MACHINE [address] [address] Nereyda Wong, PT 380 [place] [address] 01/29/2025 3:00 PM EDT Office Visit [address] [place] [address] Keren Poon, TRANSCRIBING OPERATOR HEAD [address] [place] [address] 02/01/2025 3:00 PM EDT Office Visit [address] [place] [address] Keren Poon, TRANSCRIBING OPERATOR HEAD [address] [address] 03/02/2025 2:30 PM EST Office Visit [facility] 380 [place] [address] Dana Rucker, FOLDER MACHINE 15 [facility], [address] [place] [address] Nereyda Wong, PT [address] [place] [address] 03/09/2025 2:30 PM EST Office Visit [facility] 380 [place] [address] Dana Rucker, [facility] 15 [facility], [address] [place] [address] Nereyda Wong, PT [address] [place] [address] 03/16/2025 2:30 PM EST Office Visit [facility] [address] [place] [address] Dana Rucker, [facility] 15 [facility], [address] [place] [address] Nereyda Wnog, PT 380 [place] [address] 06/03/2025 2:00 PM EST Office Visit [facility] [address] [place] [address] [place] [address] Keren Poon, [address] [address] documented as of this encounter Procedures Procedure Name Priority Date/Time Associated Diagnosis Comments BI MAMMOGRAM OUTSIDE (NO INTERPRETATION) Routine 10/09/2011 12:00 AM EDT documented in this encounter Results * Mammogram Outside (No Interpretation) (10/09/2011 12:00 AM EDT) Narrative SYSTEMGENERATED, DOCUMENTATION - 07/14/2021 1:06 PM EDT This study is for PACS storage only and not for interpretation. us Provider Not In System PhD IMG OUTSIDE IMAGING W /OUT INTERPRETATION Final Result documented in this encounter Visit Diagnoses Not on filedocumented in this encounter Additional Health Concerns Infection Onset Date Last Indicated Resolved Time CoV-Exposed Comment:Added per Home Health documentation 09/03/2021 09/05/2021 09/14/2021 1:24 AM E DT CoV-Risk Comment:Per note documentation 03/30/2024 04/10/2024 8:37 AM EST CDiff-Risk 04/10/2024 04/10/2024 04/10/2024 6:05 AM EST C. diff 04/10/2024 05/07/2024 06/06/2024 1:21 AM EST CDiff-Risk 04/10/2024 04/10/2024 04/10/2024 7:25 AM EST CoV-Risk 07/10/2024 07/10/2024 07/21/2024 1:21 AM EDT CDiff-Risk 07/10/2024 07/10/2024 07/10/2024 10:2 9 AM EDT C. diff 07/10/2024 07/10/2024 08/09/2024 1:22 AM EDT CDiff-Risk 07/10/2024 07/10/2024 07/10/2024 11:0 0 AM EDT documented as of this encounter Additional Source Comments The information contained in this document represents components of the legal health record. It is not the complete legal health record.[facility]
--- OUTSIDE RECORDS SUMMARY | 2012-10-09 | XMS_ITS | Encounter Summary ---
Author Organization [facility] Address [address] [place] [address] Phone Care Team Providers Care Grades 1 Through 5 Teacher Name Role Phone Unavailable Primary Care Provider Unavailabl e Encounter Details Date Type Department Care Team (Late st Contact Info) Description 10/09/2012 Hospital Encounter [facility],Outside Imaging 30 [place], [place] [phone] System, Provider Not In, [place] [address] Social History Tobacco Use Types Packs/Day Years [...] 6:28 AM EDT Cecy العراقي RN * [place] Suicide Severity Rating Scale (Screener/Recent Self-Report) Question [...] Description 12/25/2024 2:30 PM EDT Office Visit [facility] Infectious Diseases [address] [place] [address] Dana Rucker [facility] [address] [address] 01/01/2025 1:00 PM EDT Office Visit [facility] Rehabilitation Services 380 [place] [address] Dana Rucker [facility] [address] [address] Nereyda Wong, PT 380 [place] [address] 01/07/2025 2:30 PM EDT Office Visit [facility] 10 [place] [address] Jose Thakur MD 30 [place] [address] 01/19/2025 2:30 PM EDT Office Visit [facility] 380 [place] [address] Dana Rucker, BRAND MARKETING INTERN [address] [address] Russell Wongcy, PT 380 [place] [address] 01/26/2025 2:30 PM EDT Office Visit [facility] 380 [place] [address] Dana Rukcer, BRAND MARKETING INTERN [address] [address] Nereyda Wong, PT 380 [place] [address] 01/29/2025 3:00 PM EDT Office Visit [address] [place] [address] Keren Poon, DRY CANS OPERATOR [address] [place] [address] 02/01/2025 3:00 PM EDT Office Visit [address] [place] [address] Keren Poon, DRY CANS OPERATOR [address] [address] 03/02/2025 2:30 PM EST Office Visit [facility] 380 [place] [address] Dana Rucker, BRAND MARKETING INTERN 15 [facility], [address] [place] [address] Nereyda Wong, PT 380 [place] [address] 03/09/2025 2:30 PM EST Office Visit [facility] 380 [place] [address] Dana Rucker, [facility] 15 [facility], [address] [place] [address] Nereyda Wong, PT 380 [place] [address] 03/16/2025 2:30 PM EST Office Visit [facility] 380 [place] [address] Dana Rucker, [facility] 15 [facility], [address] [place] [address] Nereyda Wong, PT 380 [place] [address] 06/03/2025 2:00 PM EST Office Visit [facility] [address] [place] [address] [place] [address] Keren Poon, [address] [address] documented as of this encounter Procedures Procedure [...] It is not the complete legal health record.[facility]
--- OUTSIDE RECORDS SUMMARY | 2024-12-22 14:30 | XMS_ITS | Encounter Summary ---
Author Organization [facility] Address [address] [place] [address] Phone Care Team Providers Care Game Manager Name Role Phone Cash Fernandes MD Unavailable [phone] Keren Poon [facility] Primary Care Provid er [place] Wells MD Unavailable Unavailable Jose Thakur MD Unavailable [phone] Dana Rucker Unavailable [phone] Jonathan Alvarez MD Unavailable [phone] Anival Borja MD Unavailable [phone] Lyndsay Reynoso RAND BUTTING MACHINE OPERATOR Unavailable [phone] Gutierrez Pittman MD Unavailable [phone] Reason for Visit * Physical Therapy (Within 2 weeks) - Authorized Specialty Diagnoses / Procedures Referred By Cayden t Referred To Contact Physical Therapy Diagnoses Urinary incontinence, unspecified type Dana Rucker FNP [facility], 2nd [place] [address] Phone: tel: fax: [email or web address]:[email or web address] [address] [place] [address] Phone: tel: Referral ID Status Reason Start Date Expiration Date V isits Requested Visits Authorized [id number] Authorized 05/21/2024 05/21/2025 99 99 Encounter Details Date Type Department Care Team (Latest Contact Info) Description 12/22/2024 2:30 PM EDT Office Visit [facility] Rehabilitation Services [address] [place] [address] Dana Rucker, RAND BUTTING MACHINE OPERATOR [address] [facility], 2nd [place] [address] [email or web address] Nereyda Wong, PT [address] [place] [address] [email or web address] PFD (pelvic floor dysfunction) (Primary Dx) Social History Tobacco Use Types [...] as of this encounter Progress Notes * Nereyda Wong, PT - 12/22/2024 2:30 PM EDT Physical Therapy Treatment Note Patient Name: Opal Juares Date of : 1955 PFD (pelvic floor dysfunction) [M62.89] This patient has attended 2 visits since the onset Physical Therapy. Referring MD: Dana Rucker, RAND BUTTING MACHINE OPERATOR [address] [place] [address], 2nd [place] [address] No Precautions Subjective comments: Pt reports can stop urine mid stream and took time to restart. Started estradiol cream x 6 nights States in the morning can get to bathroom without issue and goes via alarm every 4 hours then is painful to have to pee and will hurt lower stomach and once pain is gone will try to get up and get tothe bathroom and on way to bathroom bladder will empty itself and some in toilet. Wears depends Pain starts once starts the coffee pain will start down low. And can't get up but when does will empty itself History of Present Illness/Condition: Opal presents with reports of chronic UTI. States wears a depends to bed at night, large pad during day and sometimes has to change it secondary doesn't make it to bathroom. tries to wake her every 4 hours and sometimes if in a deep sleep wont wake up. After had children had sling surgery and worked for awhile but then started to be painful. Had botox into bladder x 2 with no sig benefit. Previously trialed bladder medications with some help but then stopped. Still on one but doesn't remember which one. Recently started using an electric thing that sticks to lower ABD so giving electric shocks to helpwith muscles. Ordered years ago but never used it. Doesn't think it helps. And doing some ADD squeezes and kegels. States limited socially and fearful of going out secondary leakage. Avoids sex as well secondar never knows what is going on down there. Nobody has recommended localized vaginal estrogen - but thinks has estradiol at home and told to use when has a burning. States she is really frustrated with this. 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 Had fecal transplant Having UTI's and on medication all the time and that is what caused cdiff. Watching it now when asks how preventing UTI followed by infectious disease. No UTI since fecal transplant Daily/Work Activities/Stress Reducers/Shelby: Retired and sig RA Treatment Provided on eval: Self-Care/Home Management: ed on treatment plan and what PF assessment could consist of Discussed rodriguez standard of estradiol cream application. Use applicator to measure correct amount as prescribed (typically 1-2 grams). Then apply half to finger and place in vagina to second knuckleand swirl a couple of times. Then other half on finger, repeat and apply remaining on finger aroundvulva. Do this at night prior to bed for 14 days straight and then reduce to 2-3 x/week for maintenance. Begin with 3x/week x 2 weeks and then can trial reducing to 2x/week however if any symptoms return the patient would be best to return to 3x/week HEP: 4 seconds into stream try to stop urine and see if slows. Exc is to do with full bladder untilcan stop urine within 2 seconds. Will take weeks to months. Interventions: Procedural Interventions Parameters THERAPEUTIC ACTIVITIES --- NEUROMUSCULAR RE-ED --- MANUAL THERAPY ---- SELF CARE/HOME EXC PROGRAM: Discussed Sxs and stopping urine exc. Pt educated on bladder irritants and given written sheet. Ed on how to assess which may effect thatpatient, ability to water down and how may effect urgency and UI. Discussed trialing elimination ofcoffee and/or gingerale and assessing differences Discussed coffee and rachel corbin which both cause pain and leakage for her Reviewed estradiol application - if uses applicator to only put 1/2 way in and also to rub a small amount on vulva.. Discussed rodriguez standard of estradiol cream application. Use applicator to measure correct amount as prescribed (typically 1-2 grams). Then apply half to finger and place in vagina to second knuckle and swirl a couple of times. Then other half on finger, repeat and apply remainingon finger around vulva. Do this at night prior to bed for 14 days straight and then reduce to 2-3 x/week for maintenance. Begin with 3x/week x 2 weeks and then can trial reducing to 2x/week however if any symptoms return the patient would be best to return to 3x/week Informed consent received?: Yes, patient educated on internal and external PF assessment details and purpose prior to assessment/treatment. Pt edu they can end assessment/treatment at any time. Pt edu on details throughout the assessment for continued consent. Pt would like to proceed with internal assessment/treatment today. Pt offered stemhole borer to sit in room and opted to not have Assessment: See self care. Will trial and check back next week and complete loading dose of estradiol cream. Plan: Manual therapy Progressive therex Education HEP Pain science ed/autonomic Nervous system rehab Body mechanics and toileting positioning ed Bladder/bowel retraining Moisturizer and/or lubricant ed Note to patient: The century cures act makes medical notes like these available to patients inthe interest of transparency. However, be advised this is a medical document. It is intended primarily as eoms-ia-bodg communication. It is written in medical language and may contain abbreviations or verbiage that are unfamiliar. It may appear blunt or direct. This is because medical documents areintended to carry relevant information, facts as evident, and the clinical opinion of the practitioner only as of the time of writing. Nereyda Wong PT, MSOPT, DPT, [facility] [id number] documented in this encounter Plan of Treatment Upcoming Encounters Date Type Department Care Team (Late st Contact Info) Description 12/25/2024 2:30 PM EDT Office Visit [facility] Infectious Diseases [address] [place] [address] Dana Rucker FNP [address] [place] [address] 01/01/2025 1:00 PM EDT Office Visit [address] [address] Dana Rucker, [address] [address] Nereyda Wong PT [address] [place] [address] 01/07/2025 2:30 PM EDT Office Visit [facility] Pulmonary, Allergy and Critical Care Medicine 10 [facility] [place] [address] Jose Thakur MD 30 [place] [address] 01/19/2025 2:30 PM EDT Office Visit [facility] [address] [place] [address] Dana Rucker Leslee, [facility] [address] [facility], [address] [place] [address] Nereyda Wong, PT [address] [place] [address] 01/26/2025 2:30 PM EDT Office Visit [facility] [address] [place] [address] Dana Rucker, [facility] 15 [facility], [address] [place] [address] Nereyda Wong, PT [address] [place] [address] 01/29/2025 3:00 PM EDT Office Visit [address] [place] [address] Keren Poon, BUSINESS INTERN [address] [address] 02/01/2025 3:00 PM EDT Office Visit [address] [place] [address] Keren Poon, BUSINESS INTERN [address] [address] 03/02/2025 2:30 PM EST Office Visit [address] [address] Dana Ruckerley, [facility] 15 [facility], [address] [place] [address] Nereyda Wong, PT [address] [place] [address] 03/09/2025 2:30 PM EST Office Visit [facility] [address] [place] [address] Dana Rucker, [facility] [address] [address] Nereyda Wong, PT [address] [place] [address] 03/16/2025 2:30 PM EST Office Visit [facility] [address] [place] [address] Dana Rucker, [facility] [address] [address] Russell Wongcy, PT [address] [place] [address] 06/03/2025 2:00 PM EST Office Visit [facility] [address] [place] [address] [place] [address] Keren Poon CNP [address] [place] [address] documented as of this encounter Visit Diagnoses Diagnosis PFD (pelvic floor dysfunction)- Primary documented in this encounter Additional Health Concerns Assessment Noted Time PHQ-9 Depression Total Score: 5 05/09/19 24 6:55 AM EST PHQ-2 Depression Total Score: 2 05/27/19 25 1:55 PM EST documented as of this encounter Care Teams Game Manager Relationship Specialty Start Date End Date Keren Poon CNP [address] [place] [address] PCP - General Family Medicine 01/31/23 Cash Fernandes MD [address] [place] [address] Gastroenterology 08/23/20 Wilil Wells MD [address] [place] [address] Rheumatology 02/04/24 Jose Thakur MD 30 [place] [address] Geophysical Observer Pulmonary Disease 03/17/24 Dana Rucker FNP 15 [facility], 2nd [place] [address] [email or web address] Nurse Practitioner Infectious Diseases 05/21/24 Jonathan Alvarez MD [address] [place] [address], [address] [place] [address] [email or web address] Urology 05/14/23 Anival Borja MD [address] [place] [address], [address] [place] [address] Neurologist Neurology 01/04/23 Lyndsay Reynoso FNP [address] [place] [address] Nurse Practitioner Pain Medicine 05/27/22 Gutierrez Pittman MD 40 [place] [id number] Modeling Agent Cardiology 05/27/24 documented as of this encounter Additional Source Comments The information contained in this document represents components of the legal health record. It is not the complete legal health record.[facility]
[2024-12-22 16:23] LABS: MANUAL DIFF FLAG NO
--- OUTSIDE RECORDS SUMMARY | 2024-12-22 16:42 | XMS_ITS | Encounter Summary ---
Author Organization [facility] Address [address] [place] [address] Phone Care Team Providers Care Cigarette Tester Name Role Phone Cash Fernandes MD Unavailable [phone] Seven Menchaca MD Unavailable Chavo Jack MD Primary Care Provider [phone] Keren Poon [facility] Primary Care Provid er Chavo Jack MD Unavailable [place] MD Unavailable Unavailable Jose Thakur MD Unavailable [phone] Dana Rucker ENVIRONMENTAL SAMPLING TECHNICIAN Unavailable [phone] Jonathan Alvarez MD Unavailable [phone] Anival Borja MD Unavailable Lyndsay Reynoso ENVIRONMENTAL SAMPLING TECHNICIAN Unavailable Gutierrez Pittman MD Unavailable [phone] Encounter Details Date Type Department Care Team (Late st Contact Info) Description 01/08/2023 Procedure Pass [facility] Endoscopy Admitting Dept Virtual Department 30 [place] [address] Social History Tobacco Use Types Packs/Day Years [...] 12/25/2024 2:30 PM EDT Office Visit [facility] Infectious Diseases 22 [place] [address] Dana Rucker FNP [address] [address] 01/01/2025 1:00 PM EDT Office Visit [address] [address] Dana Rucker FNP [address] [address] Nereyda Wong, PT 380 [place] [address] 01/07/2025 2:30 PM EDT Office Visit [facility], Allergy [facility] Critical Care Medicine 10 [place] [address] Jose Thakur MD 30 [place] [address] 01/19/2025 2:30 PM EDT Office Visit [address] [address] Dana Rucker FNP [address] [address] Nereyda Wong, PT 380 [place] [address] 01/26/2025 2:30 PM EDT Office Visit [address] [address] Dana Rucker, [facility] 15 [facility], [address] [place] [address] Nereyda Wong, PT 380 [place] [address] 01/29/2025 3:00 PM EDT Office Visit [address] [place] [address] Keren Poon, TREE DOCTOR [address] [place] [address] 02/01/2025 3:00 PM EDT Office Visit [address] [place] [address] Keren Poon, TREE DOCTOR [address] [place] [address] 03/02/2025 2:30 PM EST Office Visit [address] [address] Dana Ruckerley, [address], [address] [place] [address] Nereyda Wong, PT 380 [place] [address] 03/09/2025 2:30 PM EST Office Visit [address] [address] Dana Ruckerley, [facility] 15 [facility], [address] [place] [address] Nereyda Wong, PT 380 [place] [address] 03/16/2025 2:30 PM EST Office Visit [facility] 380 [facility] [place] [address] Dana Rucker, ENVIRONMENTAL SAMPLING TECHNICIAN 15 [facility], 2nd [place] [address] Nereyda Wong, PT [address] [place] [address] 06/03/2025 2:00 PM EST Office Visit [facility] [address] [place] [address] [place] [address] Keren Poon, ORI 170 [facility], 2nd [place] [address] [email or web address] documented as of this encounter Visit Diagnoses [...] documented as of this encounter Care Teams Cigarette Tester Relationship Specialty Start Date End Date Chavo Jack MD 40 [place] [address] PCP - General Internal Medicine 09/18/22 01/30/23 Keren Poon CNP [address] [place] [address], 2nd [place] [address] [email or web address] PCP - General Family Medicine 01/31/23 Cash Fernandes MD [address] [place] [address] Gastroenterology 08/23/20 Seven Menchaca MD 40 [place] [address] Insurance Assigned Provider 08/04/22 08/03/23 Chavo Jack MD 40 [place] [address] Insurance Assigned Provider 08/03/23 05/04/24 [place] MD [address] [place] [address] [place] [address] Rheumatology 02/04/24 Jose Thkaur MD 30 [place] [address] Weeder Thinner Pulmonary Disease 03/17/24 Dana Rucker FNP [address] [place] [address] 2nd [place] [address] Nurse Practitioner Infectious Diseases 05/21/24 [place] [address] [place] [address], [address] [place] [address] Urology 05/14/23 Anival Borja MD [address] [place] [address], [address] [place] [address] Neurologist Neurology 01/04/23 Lyndsay Reynoso FNP [address] [place] [address] Nurse Practitioner Pain Medicine 05/27/22 Gutierrez Pittman MD 40 [place] [address] Support Teacher Cardiology 05/27/24 documented as of this encounter Additional Source Comments The information contained in this document represents components of the legal health record. It is not the complete legal health record.[facility]
--- OUTSIDE RECORDS SUMMARY | 2024-12-22 16:42 | XMS_ITS | Encounter Summary ---
Author Organization [facility] Address [address] [place] [address] Phone Care Team Providers Care Installation Service Representative Name Role Phone Cash Fernandes MD Unavailable [phone] Keren Poon [facility] Primary Care Provid er Chavo Jack MD Unavailable Willi Wells MD Unavailable Unavailable Jose Thakur MD Unavailable [phone] Dana Rucker SUPERVISOR STENO POOL Unavailable [phone] Jonathan Alvarez MD Unavailable [phone] Anival Borja MD Unavailable Lyndsay Reynoso SUPERVISOR STENO POOL Unavailable [phone] Gutierrez Pittman MD Unavailable [phone] Encounter Details Date Type Department Care Team (Late st Contact Info) Description 01/06/2024 Procedure Pass [facility] Endoscopy Admitting Dept [facility] Department [address] [place] [address] Social History Tobacco Use Types Packs/Day Years [...] Description 12/25/2024 2:30 PM EDT Office Visit [facility] Infectious Diseases 22 [place] [address] Dana Rucker FNP [address] [address] 01/01/2025 1:00 PM EDT Office Visit [address] [address] Dana Rucker FNP [address] [address] Nereyda Wong, PT 380 [place] [address] 01/07/2025 2:30 PM EDT Office Visit [facility] Pulmonary, Allergy and Critical Care Medicine 10 [place] [address] Jose Thakur MD 30 [place] [address] 01/19/2025 2:30 PM EDT Office Visit [facility] 380 [place] [address] Dana Rucker FNP [address] [address] Nereyda Wong, PT 380 [place] [address] 01/26/2025 2:30 PM EDT Office Visit [facility] 380 [place] [address] Dana Rucker, SUPERVISOR STENO POOL [address] [address] Nereyda Wong, PT 380 [place] [address] 01/29/2025 3:00 PM EDT Office Visit [address] [place] [address] Keren Poon, SAFETY CONSULTANT [address] [place] [address] 02/01/2025 3:00 PM EDT Office Visit [address] [place] [address] Keren Poon, SAFETY CONSULTANT [address] [place] [address] 03/02/2025 2:30 PM EST Office Visit [address] [address] Dana Rucker, [facility] 15 [facility], [address] [place] [address] Nereyda Wong, PT 380 [place] [address] 03/09/2025 2:30 PM EST Office Visit [address] [address] Dana Rucker, SUPERVISOR STENO POOL 15 [facility], [address] [place] [address] Nereyda Wong, PT [address] [place] [address] 03/16/2025 2:30 PM EST Office Visit [facility] [address] [place] [address] Chaim Dana Jaimeley, SUPERVISOR STENO POOL 15 [facility], 2nd [place] [address] Nereyda Wong, PT [address] [place] [address] 06/03/2025 2:00 PM EST Office Visit [facility] Medical [facility] [address] [place] [address] [place] [address] Keren Poon, [facility] 170 [facility], 2nd [place] [address] documented as of this encounter Visit Diagnoses [...] documented as of this encounter Care Teams Installation Service Representative Relationship Specialty Start Date End Date Keren Poon CNP [address] [place] [address] [email or web address] PCP - General Family Medicine 01/31/23 Cash Fernandes MD [address] [place] [address] [email or web address] Gastroenterology 08/23/20 Chavo Jack MD 40 [place] [address] [email or web address] Insurance Assigned Provider 08/03/23 05/04/24 Willi Wells MD 225 [facility] [place] [address] Rheumatology 02/04/24 Jose Thakur MD 30 [place] [address] [email or web address] Wet Process Miller Head Pulmonary Disease 03/17/24 Dana Rucker FNP [address] [address] [email or web address] Nurse Practitioner Infectious Diseases 05/21/24 Jonathan Alvarez MD [address] [place] [address], [address] [place] [address] [email or web address] Urology 05/14/23 Anival Borja MD [address] [place] [address], [address] [place] [address] [email or web address] Neurologist Neurology 01/04/23 Lyndsay Reynoso FNP [address] [place] [address] Nurse Practitioner Pain Medicine 05/27/22 Gutierrez Pittman MD [address] [place] [phone] Vegetable Ii Farmworker Cardiology 05/27/24 documented as of this encounter Additional Source Comments The information contained in this document represents components of the legal health record. It is not the complete legal health record.[facility]
--- OUTSIDE RECORDS SUMMARY | 2024-12-22 16:42 | XMS_ITS | Encounter Summary ---
Author Organization [facility] Address 5 [place] [address] Care Team Providers Care Entry Manager Name Role Phone Cheryl Calderon MD Primary Care Provider [phone] Reason for Visit * Reason Comments E-prescribing Refill Request Encounter Details Date Type Department Care Team (Late st Contact Info) Description 06/08/2019 Refill [facility] Rheumatology [address] [place] [phone] Melanie Aguirre MD E-prescribing Refill Request Social [...] Phone 06/19/19 1:45 PM Melanie Aguirre MD [facility] Rheumatology [phone] 08/04/19 2:40 PM Liliana Calderon NP [facility] Hematology/Oncology [phone] 11/10/19 1:30 PM Lyndsay Lopez MD [facility] Ophthalmology [phone] Pertinent lab results: Lab Results Component Value [...] Elbow pain 06/03/2012 ??? Rheumatoid arthritis(714.0) ([facility]) 09/29/2010 Followed by rheumatology treated with [...] on filedocumented in this encounter Care Teams Entry Manager Relationship Specialty Start Date End Date Cheryl Calderon MD [facility] Adult Medicine [address] [place] [address] PCP - General Internal Medicine 07/17/17 documented as of this encounter
--- OUTSIDE RECORDS SUMMARY | 2024-12-22 16:43 | XMS_ITS | Encounter Summary ---
Author Organization [facility] Address [address] [place] [address] Phone Care Team Providers Care Attending Radiologist Name Role Phone Cash Fernandes MD Unavailable [phone] Keren Poon [facility] Primary Care Provid er Willi Wells MD Unavailable Unavailable Jose Thakur MD Unavailable [phone] Dana Rucker FACILITY MAINTENANCE SUPERVISOR Unavailable [phone] Jonathan Alvarez MD Unavailable [phone] Anival Borja MD Unavailable Lyndsay Reynoso FACILITY MAINTENANCE SUPERVISOR Unavailable Gutierrez Pittman MD Unavailable [phone] Encounter Details Date Type Department Care Team (Late st Contact Info) Description 05/09/2024 Procedure Pass [facility], Ct Scan - [address] [address] Social History Tobacco Use Types Packs/Day Years [...] or tries to control you? No 05/07/2024 Comments No Sex and Gender Information Value [...] Description 12/25/2024 2:30 PM EDT Office Visit [facility] Infectious Diseases 22 [place] [address] Dana Rucker FNP [address] [place] [address] 01/01/2025 1:00 PM EDT Office Visit [facility] 380 [place] [address] Dana Rucker FNP [address] [place] [address] Nereyda Wong, PT 380 [place] [address] 01/07/2025 2:30 PM EDT Office Visit [facility] Pulmonary, Allergy and Critical Care Medicine 10 [place], [place] [phone] Jose Thakur MD 30 [place] [address] 01/19/2025 2:30 PM EDT Office Visit [facility] 380 [place], [place] [phone] Josefina Ruckerh Leslee, [facility] 15 [facility], [address] [place] [address] Nereyda Wong, PT 380 [place] [address] 01/26/2025 2:30 PM EDT Office Visit [facility] 380 [place] [address] Dana Ruckerley, [facility] 15 [facility], [address] [place] [address] Nereyda Wong, PT 380 [place] [address] 01/29/2025 3:00 PM EDT Office Visit [address] [place] [address] Keren Poon, SPECIAL EDUCATION MATH TEACHER [address] [address] 02/01/2025 3:00 PM EDT Office Visit [address] [place] [address] Keren Poon, SPECIAL EDUCATION MATH TEACHER [address] [place] [address] 03/02/2025 2:30 PM EST Office Visit [address] [address] Dana Ruckerley, [facility] 15 [facility], [address] [place] [address] Nereyda Wong, PT 380 [place] [address] 03/09/2025 2:30 PM EST Office Visit [facility] 380 [place] [address] Dana Rucker, [facility] [address] [address] Neryeda Wong, PT 380 [place] [address] 03/16/2025 2:30 PM EST Office Visit [facility] 380 [place] [address] Dana Rucker, [facility] [address] [address] Nereyda Wong, PT 380 [place] [address] 06/03/2025 2:00 PM EST Office Visit [facility] [address] [place] [address] [place] [address] Keren Poon, SPECIAL EDUCATION MATH TEACHER [address] [address] documented as of this encounter Visit Diagnoses Not on filedocumented in this encounter Additional Health Concerns Infection Onset Date Last Indicated Resolved Time C. diff 04/10/2024 05/07/2024 06/06/2024 1:2 1 AM EST CoV-Risk 07/10/2024 07/10/2024 07/21/2024 1:21 AM EDT CDiff-Risk 07/10/2024 07/10/2024 07/10/2024 10:2 9 AM EDT C. diff 07/10/2024 07/10/2024 08/09/2024 1:22 AM EDT CDiff-Risk 07/10/2024 07/10/2024 07/10/2024 11:0 0 AM EDT Assessment Noted Time PHQ-9 Depression Total Score: 5 05/09/19 6:55 AM EST PHQ-2 Depression Total Score: 2 05/09/19 6:55 AM EST documented as of this encounter Care Teams Attending Radiologist Relationship Specialty Start Date End Date Keren PoonORI [address] [place] [address], 2nd [place] [address] PCP - General Family Medicine 01/31/23 Cash Fernandes MD [address] [place] [address] Gastroenterology 08/23/20 Willi Wells MD 225 [facility] [place] [address] Rheumatology 02/04/24 Jose Thakur MD 30 [place] [address] Endocrinology Teacher Pulmonary Disease 03/17/24 Dana Rucker FNP 15 [facility], [address] [place] [address] Nurse Practitioner Infectious Diseases 05/21/24 Jonathan Alvarez MD [address] [place] [address], [address] [place] [address] Urology 05/14/23 Anival Borja MD [address] [place] [address], [address] [place] [address] Neurologist Neurology 01/04/23 Lyndsay Reynoso FNP [address] [address] Nurse Practitioner Pain Medicine 05/27/22 Gutierrez Pittman MD [address] [place] [phone] Reptile Farmer Cardiology 05/27/24 documented as of this encounter Additional Source Comments The information contained in this document represents components of the legal health record. It is not the complete legal health record.[facility]
--- OUTSIDE RECORDS SUMMARY | 2024-12-22 16:43 | XMS_ITS | Encounter Summary ---
Author Organization [facility] Address 5 [place] [address] Care Team Providers Care Customer Success Associate Name Role Phone Charly Saxena Primary Care Provider [phone] Cheryl Calderon MD Primary Care Provider [phone] Encounter Details Date Type Department Care Team (Late st Contact Info) Description 06/13/2015 Orders Only [facility] Rheumatology [address] [place] [address] Abel Fierro MD 5 [place] [address] Social History Tobacco Use Types Packs/Day Years [...] of this encounter Results * Due to [place] [...] presence documented in this encounter Care Teams Customer Success Associate Relationship Specialty Start Date End Date Charly Saxena [facility] [place] [address] PCP - General Internal Medicine 05/25/13 07/16/17 Cheryl Calderon MD [facility] Adult Medicine [address] [place] [address] PCP - General Internal Medicine 07/17/17 documented as of this encounter
--- OUTSIDE RECORDS SUMMARY | 2024-12-22 16:43 | XMS_ITS | Encounter Summary ---
Author Organization [facility] Address [address] [place] [address] Phone Care Team Providers Care Outside Sales Consultant Name Role Phone Cash Fernandes MD Unavailable [phone] Keren Poon [facility] Primary Care Provid er Chavo Jack MD Unavailable Willi Wells MD Unavailable Unavailable Jose Thakur MD Unavailable Dana Rucker FRONT DESK COORDINATOR Unavailable Jonathan Alvarez MD Unavailable [phone] Anival Borja MD Unavailable [phone] Lyndsay Renyoso FRONT DESK COORDINATOR Unavailable [phone] Gutierrez Pittman MD Unavailable [phone] Encounter Details Date Type Department Care Team (Late st Contact Info) Description 04/10/2024 Procedure Pass [facility], Ct Scan - [address] [address] Social History Tobacco Use Types Packs/Day Years [...] or tries to control you? No 04/10/2024 Comments No Sex and Gender Information Value Date Recorded Sex Assigned at Female 08/18/2020 10:48 PM EDT Legal Sex Female 1:11 PM EDT Gender Identity Female 08/18/2020 10:48 PM EDT Sexual Orientation Straight 09/27/2020 4: 02 PM EDT documented as of this encounter Functional Status * Calculated C-SSRS Risk Score (Lifetime/Recent) Answer Date of Assessment Author No Risk Indicated 04/10/2024 12:37 AM Rachelle Chavez RN * [place] Suicide Severity Rating Scale (Screener/Recent Self-Report) Question Answer Date of Assessment Author 1. Wish to be (Past 1 Month) No 024 12:37 AM Rachelle Andrew RN 2. Non-Specific Active Suici sonya Thoughts (Past 1 Month) No 04/10/2024 12:37 AM Rachelle Andrew RN 6. Suicidal Behavior (Lifetime) No 12:37 AM Rachelle Andrew RN documented as of this encounter Plan of Treatment Upcoming Encounters Date Type Department Care Team (Late st Contact Info) Description 12/25/2024 2:30 PM EDT Office Visit [facility] Infectious Diseases [address] [place] [address] Dana Rucker FNP [address] [address] 01/01/2025 1:00 PM EDT Office Visit [facility] 380 [place] [address] Dana Rucker FNP [address] [address] Nereyda Wong, PT 380 [place] [address] 01/07/2025 2:30 PM EDT Office Visit [facility] Pulmonary, Allergy and Critical Care Medicine 10 [address] [facility] [place] [address] Jose Thakur MD 30 [place] [address] 01/19/2025 2:30 PM EDT Office Visit [facility] [address] [place] [address] DarnellDana maguire, [facility] [address] [address] Nereyda Wong, PT 380 [place] [address] 01/26/2025 2:30 PM EDT Office Visit [facility] [address] [place] [address] DarnellDana maguireley, [facility] [address] [address] Nereyda Wong, PT 380 [place] [address] 01/29/2025 3:00 PM EDT Office Visit [facility] [address] [place] [address] [place] [address] Keren Poon, STOCK TURNER [address] [place] [address] 02/01/2025 3:00 PM EDT Office Visit [address] [place] [address] Keren Poon, ORI [address] [address] 03/02/2025 2:30 PM EST Office Visit [address] [address] Dana Rucker, [facility] [address] [address] Nereyda Wong, PT 380 [place] [address] 03/09/2025 2:30 PM EST Office Visit [address] [address] Chaim Dana Leslee, [address] [address] Nereyda Wong, PT 380 [place] [address] 03/16/2025 2:30 PM EST Office Visit [address] [address] Josefina Ruckerh Leslee, [address] [address] Nereyda Wong, PT 380 [place] [address] 06/03/2025 2:00 PM EST Office Visit [address] [place] [address] Keren Poon, ORI [address] [place] [address] [place] [address] [email or web address] documented as of this encounter Visit Diagnoses [...] documented as of this encounter Care Teams Outside Sales Consultant Relationship Specialty Start Date End Date Keren Poon CNP 170 [facility], [address] [place] [address] [email or web address] PCP - General Family Medicine 01/31/23 Cash Fernandes MD [address] [place] [address] [email or web address] Gastroenterology 08/23/20 Chavo Jack MD [address] [place] [address] Insurance Assigned Provider 08/03/23 05/04/24 Willi Wells MD 225 [place] [address] Rheumatology 02/04/24 Jose Thakur MD 30 [place] [address] Mud Analysis Well Logging Captain Pulmonary Disease 03/17/24 Dana Rucker FNP 15 [facility], 2nd [place] [address] [email or web address] Nurse Practitioner Infectious Diseases 05/21/24 Jonathan Alvarez MD [address] [place] [address], [address] [place] [address] Urology 05/14/23 Anival Borja MD [address] [place] [address], [address] [place] [address] Neurologist Neurology 01/04/23 Lyndsay Reynoso FNP [address] [place] [address] Nurse Practitioner Pain Medicine 05/27/22 Gutierrez Pittman MD [address] [place] [phone] Bias Machine Operator Helper Cardiology 05/27/24 documented as of this encounter Additional Source Comments The information contained in this document represents components of the legal health record. It is not the complete legal health record.[facility]
--- OUTSIDE RECORDS SUMMARY | 2024-12-22 16:43 | XMS_ITS | Encounter Summary ---
Author Organization [facility] Address 5 [place] [address] Care Team Providers Care Manager Cost Name Role Phone Charly Saxena Primary Care Provider [phone] Cheryl Calderon MD Primary Care Provider [phone] Encounter Details Date Type Department Care Team (Late st Contact Info) Description 05/25/2013 Orders Only [facility] Rheumatology 425 [place] [address] Abel Fierro MD 5 [place] [address] Social History Tobacco Use Types Packs/Day Years [...] <0.80 mg/dL [facility] Comment: {C-REACTIVE PROTEIN {[id number]) Please be advised that patients taking Carboxypenicillins may exhibit falsely decreased C-Reactive Protein levels due to an analytical interference in this assay. 05/25/2013 3:30 PM EST 05/25/2013 6:52 PM EST Narrative Resulting Agency Comment [id number] us Abel Fierro MD LABORATORY Final Result Performing Organization Address City/[facility] Co de Phone Number [facility] [address] [place] [address] * (ABNORMAL) ERYTHROCYTE SEDIMENTATION RATE (ESR), KUNAL (05/25/2013 3:30 PM EST) Sedimentation Rate [place] (ESR) 32(H) < OR = 30 mm/h [facility] Comment:{SED RATE BY JONATHAN SYED {[id number]) 05/25/2013 3:30 PM EST 05/25/2013 6:52 PM EST Narrative Resulting Agency Comment [id number] us Abel Fierro MD LAB SAME DAY RESULT Final Resul t Performing Organization Address [facility] Co de Phone Number [facility] [address] [place] [address] documented in this encounter Visit Diagnoses Diagnosis Rheumatoid arthritis(714.0)- Primary Rheumatoid arthritis documented in this encounter Care Teams Manager Cost Relationship Specialty Start Date End Date Charly Saxena [facility] [address] [place] [address] PCP - General Internal Medicine 05/25/13 07/16/17 Cheryl Calderon MD [facility] Medicine [address] [place] [address] PCP - General Internal Medicine 07/17/17 documented as of this encounter
--- OUTSIDE RECORDS SUMMARY | 2024-12-22 16:43 | XMS_ITS | Encounter Summary ---
Author Organization [facility] Address [address] [place] [address] Care Team Providers Care Technician Trainee Name Role Phone Alberto Pacheco Primary Care Provider [phone] Unknown Pcp, Non [facility] Primary Care Provider Unava ilCharly Antoine Primary Care Provider [phone] Charly Saxena Primary Care Provider [phone] Cheryl Calderon MD Primary Care Provider [phone] Encounter Details Date Type Department Care Team (Late st Contact Info) Description 03/14/2006 Orders Only [facility] Rheumatology [address] [place] [address] Nikike Moss, GRINDER OUTSIDE DIAMETER [address] [place], [place] [id number] Social History Tobacco Use Types Packs/Day Years [...] on filedocumented in this encounter Care Teams Technician Trainee Relationship Specialty Start Date End Date Alberto Pacheco [address] [place] [address] PCP - General 07/19/08 05/24/13 Unknown Pcp, Non [facility] PCP - General 06/30/08 07/18/08 Charly Saxena [facility] [address] [place] [address] PCP - General 01/18/06 06/29/08 Charly Saxena [facility] [address] [place] [address] PCP - General Internal Medicine 05/25/13 07/16/17 Cheryl Calderon MD [facility] Medicine [address] [place] [address] PCP - General Internal Medicine 07/17/17 documented as of this encounter
--- OUTSIDE RECORDS SUMMARY | 2024-12-22 16:43 | XMS_ITS | Clinical Summary ---
Author Organization [facility] Address [address] [place] [address] Care Team Providers Care Country Printer Apprentice Name Role Phone Cheryl Calderon MD Primary Care Provider [phone] Allergies Active Allergy Reactions Criticality Noted Date [...] with methotrexate, leflunomide, adalimumab and prednisone. Immunizations Immunization Administration Dates Next Due COVID-19, mRNA (watAgame Pre F all 2022) Monovalent, 30 mcg/0.3 ml 04/11/2021,10/03/2020,07/08/2020 Covid-19, mRNA (watAgame Pre F all 2022) Bivalent, 30 mcg/0.3 ml mohan-sucrose (12+) dose 04/13/2022 Covid-19, mRNA (watAgame Pre F all 2022) Monovalent, 30 mcg/0.3 [...] 76 02/16/2019 1:29 PM EDT Temperature 37.1 C (98.7 F) 01/27/2019 2:43 PM EDT Respiratory Rate 14 06/13/2012 10:42 AM EST [...] or Tdap) 09/27/2024 09/27/2014, 04/14/2010, 07/05/1997 Influenza (#1) 2024 03/07/2022, 01/27, 01/07/2020, Additional history exists RSV (1 - [...] 09/27/2014, 10/11/2011, Additional history exists HPV Vaccine (No Doses Required) Completed Hep A Aged Out No longer eligi [...] Zoster (Zostavax) Discontinued Procedures * Due to [place] state law, [...] to Health Maintenance Results * Due to [place] state law, [...] a test for HCV RNA (test code 95655) is suggested. For additional information please refer to http://education.MyLifePlace.Tutor Universe/faq/EEX22v4 (This link is being provided for informational/ educational purposes only.) 12/23/2018 11:3 2 AM EDT 12/23/2018 11:23 PM EDT Narrative Resulting Agency Comment [id number] us Liliana Calderon NP LABORATORY Final Result [facility] [address] [place] [address] * DXA BONE DENSITY STUDY AXIAL (LSSPINE, [...] treatment to decrease fracture risk is recommended. Fracture risk was calculated based on the risk factors reported by the patient as noted above. If the reported risk factors are not accurate, [...] a hip fracture of 3% or higher. A clinician's judgment and/or patient preferences may indicate treatment for people with 10-year fracture probabilities above or below these levels. Refer to http://nof.org/professionals/clinical-guidelines or http://www.shef.ac.uk/FRAX/ for full details. Narrative 12/08/2018 10:19 AM EDT DUAL-ENERGY X-RAY ABSORPTIOMETRY (DXA) SCAN: DXA MODEL: CHOBOLABS in fast scan mode RISK FACTORS: The [...] of 06/02/1996. Left Femoral Neck: 0.632 g/cm2, T- score -2.0, Z-score -0.5 Left Total Hip: 0.781 g/cm2, T-score -1.3, Z-score -0.2, a 3.9 % change [...] now Present Vent. rate has increased BY 38 BPM(A) [facility] EKG SYSTEM 06/13/2012 11:1 8 AM EST us Unknown Provider CARDIOVASCULAR-NO INBASKET RTG Final Result [facility] * (ABNORMAL) CARDIAC RISK/LIPID PROFILE I (11/03/2004 9:46 AM EDT) CHOLESTEROL, TOTAL 191 100 - 199 MG/DL [facility] (CLIA# [id number]) TRIGLYCERIDES 132 30 - 149 MG/DL [facility] (CLIA# [id number]) HDL-CHOLESTEROL 85(H) 40 - 77 MG/DL [facility] (CLIA# [id number]) LDL-CHOLESTEROL 80 62 - 130 MG/DL [facility] (CLIA# [id number]) Comment: RISK CATEGORY: LDL-CHOLESTEROL GOAL CHD AND CHD RISK EQUIVALENTS: <100 MULTIPLE (2+) FACTORS: <130 ZERO TO ONE RISK FACTOR: <160 CHD RELATIVE RISK RATIO (TOTAL/HDL) 2.25 [facility] (CLIA# [id number]) Comment:(< .25 X AVERAGE) 11/03/2004 9:46 AM EDT 11/03/2004 9:46 AM EDT Narrative [facility] (CLIA# [id number]) - 11/03/2004 9:46 AM EDT FASTING Abel Fierro MD LABORATORY Final Result [facility] (CLIA# [id number]) [address] [place] [address] * XRAY CHEST 2 VIEWS PA & LAT (06/28/2003 1:26 PM EST) Pathologist [facility] RADIOLOGY REPORT Chest: Lungs and pleural reflections are clear. Hilar contours heart size normal. Mild uncoiling aorta. There is no change from prior films Aug, 2001. An earlier exam then showed a rounded density superimposed lower thoracic spine in lateral projection which became less conspicuous on a follow-up film and there is no abnormal finding in this area. Conclusion: No acute disease. [facility] (CLIA# [id number]) Anatomical Region Laterality Modality Other 06/28/2003 1:26 [...] 10/13/98 , no change has occurred. IMPRESSION: No radiographic evidence of malignancy. A letter (A) in lay language describing the results will follow this report. The FDA, in accordance with the Mammography Quality Standards Act, requires that this letter be sent to the patient by the interpreting radiologist. BI-RADS Category 1: Negative [facility] (CLIA# [id number]) LETTER SENT A mammogram letter type A N was printed on 07/08/2001 [facility] (CLIA# [id number]) Anatomical Region Laterality Modality Other 06/25/2001 1:42 PM EST Charly Saxena GENERAL IMAGING- OTHER Final Res ult * BARIUM ENEMA EXAM COLON W/WO KUB (06/07/2000 8:40 AM EST) RADIOLOGY REPORT Barium enema: There is no obstruction to the flow of barium to the cecum where there is reflux into normal terminal ileum. There is moderate scattered fecal debris. No definite polyp or [...] is suggested. No definite polyp was seen. [facility] (CLIA# [id number]) Anatomical Region Laterality Modality Other 06/07/2000 8:40 AM EST Narrative 06/07/2000 2:57 PM EST Reason for Study/History: ABD PAIN Test(s) processed by : IDAime RVIERA Jeff Puente PA-C CONTRAST STUDY- OTHER Elana l Result * PAP SMEAR (12/06/1999 12:00 AM EDT) SPERM SOURCE VCE [facility] (CLIA# [id number]) NUMBER OF SLIDES RECEIVED: 1 [facility] (CLIA# [id number]) HISTORY CLINICAL [facility] (CLIA# [id number]) Comment:Menopause 8370 [facility] (CLIA# [id number]) Comment:Endocervical cells a re present SPECIMEN ADEQUACY: [facility] (CLIA# [id number]) Comment:Satisfactory specime n for Cytologic evaluation. PATHOLOGY DIAGNOSIS [facility] (CLIA# [id number]) Comment:WITHIN NORMAL LIMITS PATHOLOGY GROUP: [facility] (CLIA# [id number]) Comment: [address] [place]. [address] 12/06/1999 12/06/1999 Chloe Law MD PATHOLOGY Final Resul t [facility] (CLIA# [id number]) [address] [place] [address] from Last 3 Months or Most Recently Relevant to Health Maintenance Insurance MEDICARE PART B BC FFS FEDERAL Care Teams Country Printer Apprentice Relationship Specialty Start Date End Date Cheryl Calderon MD [facility] [address] [place] [address] PCP - General Internal Medicine 07/17/17
--- OUTSIDE RECORDS SUMMARY | 2024-12-22 16:43 | XMS_ITS | Encounter Summary ---
Author Organization [facility] Address [address] [place] [address] Phone Care Team Providers Care Die Trouble Shooter Name Role Phone Cash Fernandes MD Unavailable [phone] Keren Poon [facility] Primary Care Provid er Chavo Jack MD Unavailable Willi Wells MD Unavailable Unavailable Jose Thakur MD Unavailable [phone] Dana Rucker ADMISSIONS CLINICIAN Unavailable Jonathan Alvarez MD Unavailable [phone] Anival Borja MD Unavailable Lyndsay Reynoso ADMISSIONS CLINICIAN Unavailable [phone] Gutierrez Pittman MD Unavailable [phone] Encounter Details Date Type Department Care Team (Late st Contact Info) Description 04/10/2024 Procedure Pass [facility], Ct Scan - [address] [address] Social History Tobacco Use Types Packs/Day Years [...] 04/10/2024 12:37 AM Rachelle Chavez RN * [place] Suicide Severity Rating Scale (Screener/Recent Self-Report) Question [...] Description 12/25/2024 2:30 PM EDT Office Visit [facility] Infectious Diseases [address] [place] [address] Dana Rucker FNP [address] [address] 01/01/2025 1:00 PM EDT Office Visit [facility] [address] [place] [address] Dana Rucker FNP [address] [address] Nereyda Wong, PT [address] [place] [address] 01/07/2025 2:30 PM EDT Office Visit [facility] Pulmonary, Allergy and Critical Care Medicine [address] [facility] [place] [address] Jose Thakur MD [address] [place] [address] 01/19/2025 2:30 PM EDT Office Visit [facility] [address] [place] [address] DarnellDana maguire, [facility] [address] [address] Nereyda Wong, PT [address] [place] [address] 01/26/2025 2:30 PM EDT Office Visit [facility] [address] [place] [address] DarnellDana maguireley, [facility] [address] [address] Nereyda Wong, PT [address] [place] [address] 01/29/2025 3:00 PM EDT Office Visit [facility] [address] [place] [address] [place] [address] Keren Poon, HYDRAULIC CORRUGATING MACHINE OPERATOR [address] [place] [address] 02/01/2025 3:00 PM EDT Office Visit [address] [place] [address] Keren Poon, ORI [address] [address] 03/02/2025 2:30 PM EST Office Visit [address] [address] Dana Rucker, [facility] [address] [address] Nereyda Wong, PT [address] [place] [address] 03/09/2025 2:30 PM EST Office Visit [address] [address] Chaim Dana Leslee, [address] [address] Nereyda Wong, PT [address] [place] [address] 03/16/2025 2:30 PM EST Office Visit [address] [address] Josefina Ruckerh Leslee, [address] [address] Nereyda Wong, PT [address] [place] [address] 06/03/2025 2:00 PM EST Office Visit [address] [place] [address] Keren Poon, ORI [address] [place] [address] [place] [address] [email or web address] documented as of this encounter Visit Diagnoses [...] documented as of this encounter Care Teams Die Trouble Shooter Relationship Specialty Start Date End Date Keren Poon CNP 170 [facility], [address] [place] [address] [email or web address] PCP - General Family Medicine 01/31/23 Cash Fernandes MD [address] [place] [address] [email or web address] Gastroenterology 08/23/20 Chavo Jack MD [address] [place] [address] Insurance Assigned Provider 08/03/23 05/04/24 Willi Wells MD [address] [place] [address] Rheumatology 02/04/24 Jose Thakur MD [address] [place] [address] Policy Issue Clerk Pulmonary Disease 03/17/24 Dana Rucker FNP 15 [facility], 2nd [place] [address] [email or web address] Nurse Practitioner Infectious Diseases 05/21/24 Jonathan Alvarez MD [address] [place] [address], [address] [place] [address] Urology 05/14/23 Anival Borja MD [address] [place] [address], [address] [place] [address] Neurologist Neurology 01/04/23 Lyndsay Reynoso FNP [address] [place] [address] Nurse Practitioner Pain Medicine 05/27/22 Gutierrez Pittman MD [address] [place] [phone] Radiology Special Procedure Tech Cardiology 05/27/24 documented as of this encounter Additional Source Comments The information contained in this document represents components of the legal health record. It is not the complete legal health record.[facility]
--- OUTSIDE RECORDS SUMMARY | 2024-12-22 16:43 | XMS_ITS | Encounter Summary ---
Author Organization [facility] Address [address] [place] [address] Care Team Providers Care Relocation Coordinator Name Role Phone Charly Saxena Primary Care Provider [phone] Cheryl Calderon MD Primary Care Provider [phone] Encounter Details Date Type Department Care Team (Late st Contact Info) Description 01/18/2016 Orders Only [facility] Rheumatology [address] [place] [address] Abel Fierro MD [address] [place] [address] Social History Tobacco Use Types Packs/Day Years [...] - 0.99 mg/dL [facility] Comment: {CREATININE {[id number]) For patients >49 years of age, the reference limit for Creatinine is approximately 13% higher for people identified as -Fijian. GFR 81 > OR = 60 mL/min/1. 73m2 [facility] Comment:{eGFR NON-AFR. AMERI CAN {[id number]) GFR () 94 > OR = 60 mL/min/1. 73m2 [facility] Comment:{eGFR AMERIC AN {[id number]) 01/18/2016 1:17 PM EDT 01/18/2016 9:39 PM [...] needs for GFR calculation. Resulting Agency Comment [id number] us Abel Fierro MD LAB SAME DAY RESULT Final Resul t [facility] [address] [place] [address] * (ABNORMAL) ALANINE AMINOTRANSFERASE (ALT), SERUM (01/18/2016 1:17 PM EDT) ALT (SGPT) 48(H) 6 - 29 U/L [facility] Comment:{ALT {[id number]) 01/18/2016 1:17 PM EDT 01/18/2016 9:39 PM EDT Narrative Resulting Agency Comment [id number] us Abel Fierro MD LAB SAME DAY RESULT Final Resul t Performing Organization Address City/[facility] Co de Phone Number [facility] [address] [place] [address] * ASPARTATE AMINOTRANSFERASE (AST), SERUM (01/18/2016 1:17 PM EDT) AST (SGOT) 27 10 - 35 U/L [facility] Comment:{AST {[id number]) 01/18/2016 1:17 PM EDT 01/18/2016 9:39 PM EDT Narrative Resulting Agency Comment [id number] us Abel Fierro MD LAB SAME DAY RESULT Final Resul t Performing Organization Address [facility] Co de Phone Number [facility] [address] [place] [address] * (ABNORMAL) CBC INCLUDES DIFFERENTIAL AND PLATELET COUNT (01/18/2016 1:17 PM EDT) WBC 11.4(H) 3.8 - 10.8 Thousand/ uL [facility] Comment:{WHITE BLOOD CELL CO UNT {[id number]) RBC 5.40(H) 3.80 - 5.10 Million/u L [facility] Comment:{RED BLOOD CELL COUN T {[id number]) Hemoglobin 14.3 11.7 - 15.5 g/dL [facility] Comment:{HEMOGLOBIN {[id number]) Hematocrit 45.8(H) 35.0 - 45.0 % [facility] Comment:{HEMATOCRIT {[id number]) MCV 84.8 80.0 - 100.0 fL [facility] Comment:{MCV {[id number]) MCH 26.5(L) 27.0 - 33.0 pg [facility] Comment:{MCH {[id number]) MCHC 31.3(L) 32.0 - 36.0 g/dL [facility] Comment:{MCHC {[id number]) RDW 16.5(H) 11.0 - 15.0 % [facility] Comment:{RDW {[id number]) PLT 289 140 - 400 Thousand/ uL [facility] Comment:{PLATELET COUNT {[id number]) MPV 8.4 7.5 - 11.5 fL [facility] Comment:{MPV {[id number]) Neutrophils # 9793(H) 1500 - 7800 cells/uL [facility] Comment:{ABSOLUTE NEUTROPHIL S {[id number]) Lymphocytes # 809(L) 850 - 3900 cells/uL [facility] Comment:{ABSOLUTE LYMPHOCYTE S {[id number]) Monocytes # 638 200 - 950 cells/uL [facility] Comment:{ABSOLUTE MONOCYTES {[id number]) Eosinophils # 91 15 - 500 cells/uL [facility] Comment:{ABSOLUTE EOSINOPHIL S {[id number]) Basophils # 68 0 - 200 cells/uL [facility] Comment:{ABSOLUTE BASOPHILS {[id number]) Neutrophils % 85.9 % [facility] Comment:{NEUTROPHILS {[id number]) Lymphocytes % 7.1 % [facility] Comment:{LYMPHOCYTES {[id number]) Monocytes % 5.6 % [facility] Comment:{MONOCYTES {[id number]) Eosinophils % 0.8 % [facility] Comment:{EOSINOPHILS {[id number]) Basophils % 0.6 % [facility] Comment:{BASOPHILS {[id number]) 01/18/2016 1:17 PM EDT 01/18/2016 9:39 PM EDT Narrative Resulting Agency Comment [id number] us Abel Fierro MD LAB SAME DAY RESULT Final Resul t [facility] [address] [place] [address] documented in this encounter Visit Diagnoses Diagnosis Rheumatoid arthritis involving multiple sites with positive rheumatoid factor (HCC) [M05.79] documented in this encounter Care Teams Relocation Coordinator Relationship Specialty Start Date End Date Charly Saxena [facility] [address] [place] [address] PCP - General Internal Medicine 05/25/13 07/16/17 Cheryl Calderon MD [facility] [address] [place] [address] PCP - General Internal Medicine 07/17/17 documented as of this encounter
--- OUTSIDE RECORDS SUMMARY | 2024-12-22 16:43 | XMS_ITS | Encounter Summary ---
Author Organization [facility] Address [address] [place] [address] Care Team Providers Care Comic Artist Name Role Phone Alberto Pacheco Primary Care Provider [phone] Charly Saxena Primary Care Provider [phone] Cheryl Calderon MD Primary Care Provider [phone] Encounter Details Date Type Department Care Team (Late st Contact Info) Description 08/05/2012 Orders Only [facility] Rheumatology [address] [place] [address] Abel Fierro MD [address] [place] [address] Social History Tobacco Use Types Packs/Day Years [...] - 1.05 mg/dL [facility] Comment: {CREATININE {[id number]) For patients >49 years of age, the reference limit for Creatinine is approximately 13% higher for people identified as -Andorran. GFR 82 > OR = 60 mL/min/1. 73m2 [facility] Comment:{eGFR NON-AFR. AMERI CAN {[id number]) GFR () 95 > OR = 60 mL/min/1. 73m2 [facility] Comment:{eGFR AMERIC AN {[id number]) 08/05/2012 12:5 3 PM EDT 08/05/2012 4:46 [...] needs for GFR calculation. Resulting Agency Comment [id number] us Abel Fierro MD LAB SAME DAY RESULT Final Resul t [facility] [address] [place] [address] * (ABNORMAL) CBC INCLUDES DIFFERENTIAL AND PLATELET COUNT (08/05/2012 12:53 PM EDT) WBC 7.8 3.8 - 10.8 Thousand/ uL [facility] Comment:{WHITE BLOOD CELL CO UNT {[id number]) RBC 5.22(H) 3.80 - 5.10 Million/u L [facility] Comment:{RED BLOOD CELL COUN T {[id number]) Hemoglobin 14.0 11.7 - 15.5 g/dL [facility] Comment:{HEMOGLOBIN {[id number]) Hematocrit 44.8 35.0 - 45.0 % [facility] Comment:{HEMATOCRIT {[id number]) MCV 85.8 80.0 - 100.0 fL [facility] Comment:{MCV {[id number]) MCH 26.9(L) 27.0 - 33.0 pg [facility] Comment:{MCH {[id number]) MCHC 31.4(L) 32.0 - 36.0 g/dL [facility] Comment:{MCHC {[id number]) RDW 15.9(H) 11.0 - 15.0 % [facility] Comment:{RDW {[id number]) PLT 305 140 - 400 Thousand/ uL [facility] Comment:{PLATELET COUNT {[id number]) MPV 8.0 7.5 - 11.5 fL [facility] Comment:{MPV {[id number]) Neutrophils # 3237 1500 - 7800 cells/uL [facility] Comment:{ABSOLUTE NEUTROPHIL S {[id number]) Lymphocytes # 3229 850 - 3900 cells/uL [facility] Comment:{ABSOLUTE LYMPHOCYTE S {[id number]) Monocytes # 1014(H) 200 - 950 cells/uL [facility] Comment:{ABSOLUTE MONOCYTES {[id number]) Eosinophils # 273 15 - 500 cells/uL [facility] Comment:{ABSOLUTE EOSINOPHIL S {[id number]) Basophils # 47 0 - 200 cells/uL [facility] Comment:{ABSOLUTE BASOPHILS {[id number]) Neutrophils % 41.5 % [facility] Comment:{NEUTROPHILS {[id number]) Lymphocytes % 41.4 % [facility] Comment:{LYMPHOCYTES {[id number]) Monocytes % 13.0 % [facility] Comment:{MONOCYTES {[id number]) Eosinophils % 3.5 % [facility] Comment:{EOSINOPHILS {[id number]) Basophils % 0.6 % [facility] Comment:{BASOPHILS {[id number]) 08/05/2012 12:5 3 PM EDT 08/05/2012 4:46 PM EDT Narrative Resulting Agency Comment [id number] us Abel Fierro MD LAB SAME DAY RESULT Final Resul t Performing Organization Address City/[facility] Co de Phone Number [facility] [address] [place] [address] * ALANINE AMINOTRANSFERASE (ALT), SERUM (08/05/2012 12:53 PM EDT) ALT (SGPT) 18 6 - 40 U/L [facility] Comment:{ALT {[id number]) 08/05/2012 12:5 3 PM EDT 08/05/2012 4:46 PM EDT Narrative Resulting Agency Comment [id number] us Abel Fierro MD LAB SAME DAY RESULT Final Resul t Performing Organization Address [facility] Co de Phone Number [facility] [address] [place] [address] * ASPARTATE AMINOTRANSFERASE (AST), SERUM (08/05/2012 12:53 PM EDT) AST (SGOT) 17 10 - 35 U/L [facility] Comment:{AST {[id number]) 08/05/2012 12:5 3 PM EDT 08/05/2012 4:46 PM EDT Narrative Resulting Agency Comment [id number] us Abel Fierro MD LAB SAME DAY RESULT Final Resul t Performing Organization Address City/[facility] Co de Phone Number [facility] [address] [place] [address] documented in this encounter Visit Diagnoses Diagnosis Rheumatoid arthritis(714.0) Rheumatoid arthritis documented in this encounter Care Teams Comic Artist Relationship Specialty Start Date End Date Alberto Pacheco [address] [place] [address] PCP - General 07/19/08 05/24/13 Charly Saxena [facility] [place] [address] PCP - General Internal Medicine 05/25/13 07/16/17 Cheryl Calderon MD [facility] Medicine [address] [place] [address] PCP - General Internal Medicine 07/17/17 documented as of this encounter
--- OUTSIDE RECORDS SUMMARY | 2024-12-22 16:43 | XMS_ITS | Encounter Summary ---
Author Organization [facility] Address [address] [place] [address] Phone Care Team Providers Care Shoe Cutter Name Role Phone Patrick Sanchez MD Unavailable [phone] Charly Saxena DO Primary Care Provider [phone] Cheryl Calderon MD Primary Care Provider Keren Mabry MD Unavailable Louisa Hogan MD Unavailable [phone] Charly Saxena DO Unavailable [phone] Abhinav Muhammad MD Unavailable [phone] Cheryl Giraldo NP Unavailable Wilfrido Steel MD Unavailable [phone] Sharon Martin PA-C Unavailable Ita Pineda CNP Primary Care Provider Cash Fernandes MD Unavailable [phone] Seven Menchaca MD Unavailable Chavo Jack MD Primary Care Provider Keren Poon Jailyn [facility] Primary Care Provid er Chavo Jack MD Unavailable Willi Wells MD Unavailable Unavailable Jose Thakur MD Unavailable Dana Rucker Unavailable [phone] Jonathan Alvarez MD Unavailable [phone] Anival Borja MD Unavailable Angeles Lyndsay Linda GRADE TAMPER Unavailable Gutierrez Pittman MD Unavailable [phone] Encounter Details Date Type Department Care Team (Late st Contact Info) Description 12/20/2017 Procedure Pass BWF Periop 6th floor [address] [place] [address] Social History Tobacco Use Types Packs/Day Years Used Date Smoking Tobacco: Never Smokeless Tobacco: Never Alcohol Use Standard Drinks/Week Comments Yes 0 (1 standard drink = 0.6 oz pur e alcohol) 1-2 drinks per month Comments Unknown Sex and Gender Information Value [...] Description 12/25/2024 2:30 PM EDT Office Visit [facility] Infectious Diseases 22 [place] [address] Dana Rucker FNP 15 [facility], 2nd [place] [address] 01/01/2025 1:00 PM EDT Office Visit [facility] Rehabilitation Services 380 [place] [address] Dana Rucker FNP [address] [address] Nereyda Wong, PT 380 [place] [address] 01/07/2025 2:30 PM EDT Office Visit [facility] Pul[facility], Allergy and Critical Care Medicine 10 [place] [address] Jose Thakur MD 30 [place] [address] 01/19/2025 2:30 PM EDT Office Visit [facility] Rehabilitation Services [address] [place] [address] Dana Rucker, [facility] [address] [address] Nereyda Wong, PT 380 [place] [address] 01/26/2025 2:30 PM EDT Office Visit [facility] Rehabilitation Services [address] [place] [address] Dana Rucker, [facility] [address] [address] Nereyda Wong, PT 380 [place] [address] 01/29/2025 3:00 PM EDT Office Visit [facility] [address] [place] [address] [place] [address] Keren Poon, BALL RACKER [address] [place] [address] 02/01/2025 3:00 PM EDT Office Visit [address] [place] [address] Keren Poon CNP [address] [place] [address] 03/02/2025 2:30 PM EST Office Visit [address] [address] DarnellJosefinah Leslee, [facility] [address] [address] Nereyda Wong, PT 380 [place] [address] 03/09/2025 2:30 PM EST Office Visit [address] [address] DarnellDana maguire Leslee, [facility] [address] [address] Nereyda Wong, PT 380 [place] [address] 03/16/2025 2:30 PM EST Office Visit [address] [address] ChaimDana Leslee, [facility] [address] [address] Nereyda Wong, PT 380 [place] [address] 06/03/2025 2:00 PM EST Office Visit [address] [place] [address] Keren Poon, ORI 170 [facility], 2nd [place] [address] [email or web address] documented as of this encounter Visit Diagnoses [...] as of this encounter Care Teams Shoe Cutter Relationship Specialty Start Date End Date Charly Saxena DO [address] [place] [address] [email or web address] PCP - General Internal Medicine 10/05/14 04/22/18 Cheryl Calderon MD [address] [place] [address] PCP - General Family Medicine 04/23/18 08/18/20 Ita Pineda, ORI 40 [place] [address] [email or web address] PCP - General Internal Medicine 08/19/20 09/17/22 Chavo Jack MD 40 [place] [address] PCP - General Internal Medicine 09/18/22 01/30/23 Keren Poon CNP [address] [place] [address], 2nd [place] [address] [email or web address] PCP - General Family Medicine 01/31/23 Patrick Sanchez MD [address] [place] [address] Department [place] [address] [email or web address] Historical LMR Provider 09/10/14 Keren Mabry MD [address] [place] [address] Historical LMR Provider 07/10/18 Louisa Hogan MD [address] [place] [address] [email or web address] Historical LMR Provider 07/10/1807/29 Charly Saxena DO [address] [place] [address] Historical LMR Provider 07/10/18 08/22/20 Abhinav Muhammad MD 115 [facility] 104 [place] [address] [email or web address] Historical LMR Provider 07/10/18 08/22/20 Cheryl Giraldo NP 94 [place] [address] [email or web address] Historical LMR Provider 07/10/18 08/22/20 Wilfrido Steel MD [address] [place] [address] [email or web address] Historical LMR Provider 07/10/18 08/22/20 Sharon Martin PA-C 115 [facility] 104 [place] [address] Historical LMR Provider 07/10/18 08/22/20 Cash Fernandes MD [address] [place] [address] [email or web address] Gastroenterology 08/23/20 Seven Menchaca MD [address] [place] [address] Insurance Assigned Provider 08/04/22 08/03/23 Chavo Jack MD 40 [place] [address] [email or web address] Insurance Assigned Provider 08/03/23 05/04/24 Willi Wells MD [address] [place] [address] Internal [facility] Residency BRAYDEN Mock [address] Rheumatology 02/04/24 Jose Thakur MD 30 [place] [address] Childcare Administrator Pulmonary Disease 03/17/24 Dana Rucker FNP 15 [facility], 2nd [place] [address] Nurse Practitioner Infectious Diseases 05/21/24 Jonathan Alvarez MD [address] [place] [address], [address] [place] [address] Urology 05/14/23 Anival Borja MD [address] [place] [address], [address] [place] [address] Neurologist Neurology 01/04/23 Lyndsay Reynoso FNP [address] [place] [address] Nurse Practitioner Pain Medicine 05/27/22 Gutierrez Pittman MD [address] [place] [phone] Inspecting Machine Adjuster Cardiology 05/27/24 documented as of this encounter Additional Source Comments The information contained in this document represents components of the legal health record. It is not the complete legal health record.[facility]
--- OUTSIDE RECORDS SUMMARY | 2024-12-22 16:43 | XMS_ITS | Encounter Summary ---
Author Organization [facility] Address [address] [place] [address] Care Team Providers Care Surveillance Operator Name Role Phone Charyl Saxena Primary Care Provider [phone] Cheryl Calderon MD Primary Care Provider [phone] Encounter Details Date Type Department Care Team (Late st Contact Info) Description 05/25/2013 Orders Only [facility] Rheumatology 425 [place] [address] Abel Fierro MD 5 [place] [address] Social History Tobacco Use Types Packs/Day Years [...] <0.80 mg/dL [facility] Comment: {C-REACTIVE PROTEIN {[id number]) Please be advised that patients taking Carboxypenicillins may exhibit falsely decreased C-Reactive Protein levels due to an analytical interference in this assay. 05/25/2013 3:30 PM EST 05/25/2013 6:52 PM EST Narrative Resulting Agency Comment [id number] us Abel Fierro MD LABORATORY Final Result Performing Organization Address [facility] de Phone Number [facility] [address] [place] [address] * (ABNORMAL) ERYTHROCYTE SEDIMENTATION RATE (ESR), SHAJIREN (05/25/2013 3:30 PM EST) Sedimentation Rate [place] (ESR) 32(H) < OR = 30 mm/h [facility] Comment:{SED RATE BY MODIFIE D KUNAL {[id number]) 05/25/2013 3:30 PM EST 05/25/2013 6:52 PM EST Narrative Resulting Agency Comment [id number] us Abel Fierro MD LAB SAME DAY RESULT Final Resul t Performing Organization Address [facility] de Phone Number [facility] [address] [place] [address] documented in this encounter Visit Diagnoses Diagnosis Rheumatoid arthritis(714.0) Rheumatoid arthritis documented in this encounter Care Teams Surveillance Operator Relationship Specialty Start Date End Date Charly Saxena [facility]0 [place], [place] [id number] PCP - General Internal Medicine 05/25/13 07/16/17 Cheryl Calderon MD [facility] Adult Medicine [address] [place] [address] [place] [address] PCP - General Internal Medicine 07/17/17 documented as of this encounter
--- OUTSIDE RECORDS SUMMARY | 2024-12-22 16:43 | XMS_ITS | Encounter Summary ---
Author Organization [facility] Address 5 [place] [address] Care Team Providers Care Skip Hoist Operator Name Role Phone Alberto Pacheco Primary Care Provider [phone] Charly Saxena Primary Care Provider [phone] Cheryl Calderon MD Primary Care Provider [phone] Reason for Visit * Reason Comments E-prescribing Refill Request Encounter Details Date Type Department Care Team (Late st Contact Info) Description 05/11/2013 [facility] Rheumatology [address] [place] [phone] Anival Bales MD E-prescribing Refill Request Social [...] of her nearly 4-year-old grandson Harshil in [place]. Next OV: Future Appointments Date Time Provider [...] on filedocumented in this encounter Care Teams Skip Hoist Operator Relationship Specialty Start Date End Date Alberto Pacheco 28 [place] [address] PCP - General 07/19/08 05/24/13 hCarly Saxena [facility] 12[address] [place] [address] PCP - General Internal Medicine 05/25/13 07/16/17 Cheryl Calderon MD [facility] Adult Medicine 95 [place] [address] PCP - General Internal Medicine 07/17/17 documented as of this encounter
--- OUTSIDE RECORDS SUMMARY | 2024-12-22 16:43 | XMS_ITS | Encounter Summary ---
Author Organization [facility] Address [address] [place] [address] Phone Care Team Providers Care Delinquent Tax Collector Assistant Name Role Phone Cash Fernandes MD Unavailable Keren Poon [facility] Primary Care Provid er Chavo Jack MD Unavailable Willi Wells MD Unavailable Unavailable Jose Thakur MD Unavailable Dana Rucker BARIATRIC SURGEON Unavailable Jonathan Alvarez MD Unavailable [phone] Anival Borja MD Unavailable [phone] Lyndsay Reynoso BARIATRIC SURGEON Unavailable Gutierrez Pittman MD Unavailable [phone] Encounter Details Date Type Department Care Team (Late st Contact Info) Description 05/01/2024 Ancillary Orders Virtual Department 30 [place] [address] Argelia Tyalor, JULI 10 [place] [address] Lower abdominal pain (Primary Dx); Diarrhea, unspecified [...] Description 12/25/2024 2:30 PM EDT Office Visit [facility] Infectious Diseases 22 [place] [address] Dana Rucker FNP [address] [address] 01/01/2025 1:00 PM EDT Office Visit [facility] Rehabilitation Services 380 [place] [address] Dana Rucker FNP [address] [address] Nereyda Wong, PT 380 [place] [address] 01/07/2025 2:30 PM EDT Office Visit [facility] Pulmonary, Allergy and Critical Care Medicine 10 [facility] [place] [address] Jose Thakur MD 30 [place] [address] 01/19/2025 2:30 PM EDT Office Visit [facility] 380 [place] [address] Dana Rucker, [facility] [address] [address] MarvinNereyda, PT 380 [place] [address] 01/26/2025 2:30 PM EDT Office Visit [address] [address] Dana Rucker, [facility] [address] [address] Nereyda Wong, PT 380 [place] [address] 01/29/2025 3:00 PM EDT Office Visit [address] [place] [address] Keren Poon, LITIGATION CLAIM REPRESENTATIVE [address] [place] [address] 02/01/2025 3:00 PM EDT Office Visit [address] [place] [address] Keren Poon, ORI [address] [place] [address] 03/02/2025 2:30 PM EST Office Visit [address] [address] Dana Rucker, [facility] 15 [facility], [address] [place] [address] Nereyda Wong, PT 380 [place] [address] 03/09/2025 2:30 PM EST Office Visit [facility] 380 [place] [address] Dana Rucker, [facility] 15 [facility], [address] [place] [address] Nereyda Wong, PT 380 [place] [address] 03/16/2025 2:30 PM EST Office Visit [address] [address] Dana Rucker, [facility] 15 [facility], [address] [place] [address] Nereyda Wong, PT 380 [place] [address] 06/03/2025 2:00 PM EST Office Visit [facility] [address] [place] [address] [place] [address] Keren Poon, LITIGATION CLAIM REPRESENTATIVE [address] [place] [place] [address] [email or web address] documented as of this encounter Results * [...] clinician's provided indication for this examination in [facility]: Outside Radiology Order; Lower abdominal pain// Diarrhea// [...] clinician's provided indication for this examination in [facility]:Outside Radiology Order; Lower abdominal pain// Diarrhea// Bloating//Change [...] evidence of obstruction or pneumoperitoneum. Argelia Taylor PARAKEET RAISER IMG XR ABDOMEN Final Res ult documented in this encounter Visit Diagnoses Diagnosis [...] documented as of this encounter Care Teams Delinquent Tax Collector Assistant Relationship Specialty Start Date End Date [place] Kerenrex Glasre CNP [address] [place] [address], 2nd [place] [address] [email or web address] PCP - General Family Medicine 01/31/23 Cash Fernandes MD [address] [place] [address] Gastroenterology 08/23/20 Chavo Jack MD 40 [place] [address] [email or web address] Insurance Assigned Provider 08/03/23 05/04/24 Willi Wells MD 225 [place] [address] Rheumatology 02/04/24 Jose Thakur MD 30 [place] [address] Scrubbing Machine Operator Pulmonary Disease 03/17/24 Dana Rucker FNP 15 [facility], 2nd [place] [address] Nurse Practitioner Infectious Diseases 05/21/24 Jonathan Alvarez MD [address] [place] [address], [address] [place] [address] Urology 05/14/23 Anival Borja MD [address] [place] [address], [address] [place] [address] Neurologist Neurology 01/04/23 Lyndsay Reynoso FNP [address] [place] [address] Nurse Practitioner Pain Medicine 05/27/22 Gutierrez Pittman MD 40 [place] [address] Premix Operator Concentrate Cardiology 05/27/24 documented as of this encounter Additional Source Comments The information contained in this document represents components of the legal health record. It is not the complete legal health record.[facility]
--- OUTSIDE RECORDS SUMMARY | 2024-12-22 16:43 | XMS_ITS | Encounter Summary ---
Author Organization [facility] Address 5 [place] [address] Care Team Providers Care Fittings Finisher Name Role Phone Charly Saxena Primary Care Provider [phone] Cheryl Calderon MD Primary Care Provider [phone] Encounter Details Date Type Department Care Team (Late st Contact Info) Description 10/15/[address] [facility] Rheumatology [address] [place] [address] Abel Fierro MD 5 [place] [address] Social History Tobacco Use Types Packs/Day Years [...] arthritis documented in this encounter Care Teams Fittings Finisher Relationship Specialty Start Date End Date Charly Saxena [facility] 12[address] [place] [address] PCP - General Internal Medicine 05/25/13 07/16/17 Cheryl Calderon MD [facility] Adult Medicine [address] [place] [address] PCP - General Internal Medicine 07/17/17 documented as of this encounter
--- OUTSIDE RECORDS SUMMARY | 2024-12-22 16:43 | XMS_ITS | Encounter Summary ---
Author Organization [facility] Address 5 [place] [address] Care Team Providers Care Aperture Mask Etcher Name Role Phone Alberto Pacheco Primary Care Provider [phone] Charly Saxena Primary Care Provider [phone] Cheryl Calderon MD Primary Care Provider [phone] Encounter Details Date Type Department Care Team (Late st Contact Info) Description 01/23/2013 Orders Only [facility] Rheumatology 425 [place] [address] Abel Fierro MD 5 [place] [address] Social History Tobacco Use Types Packs/Day Years [...] DIAGNOSTICS Comment:{SED RATE BY MODIFIE D KUNAL {[id number]) 01/23/2013 4:26 PM EDT 01/23/2013 11:06 PM EDT Narrative Resulting Agency Comment [id number] us Abel Fierro MD LAB SAME DAY RESULT Final Resul t Performing Organization Address City/State/[facility] Co de Phone Number [facility] [address] [place] [address] * C-REACTIVE PROTEIN (CRP) - INFLAMMATION (01/23/2013 4:26 PM EDT) C reactive protein 0.49 <0.80 mg/dL [facility] Comment: {C-REACTIVE PROTEIN {[id number]) Please be advised that patients taking Carboxypenicillins may exhibit falsely decreased C-Reactive Protein levels due to an analytical interference in this assay. 01/23/2013 4:26 PM EDT 01/23/2013 11:06 PM EDT Narrative Resulting Agency Comment [id number] us Abel Fierro MD LABORATORY Final Result Performing Organization Address [facility] Co de Phone Number [facility] [address] [place] [address] * CREATININE WITH GLOMERULAR FILTRATION RATE, ESTIMATED (EGFR) (01/23/2013 4:26 PM EDT) Creatinine 0.81 0.50 - 1.05 mg/dL [facility] Comment: {CREATININE {[id number]) For patients >49 years of age, the reference limit for Creatinine is approximately 13% higher for people identified as -Grenadian. GFR 80 > OR = 60 mL/min/1. 73m2 [facility] Comment:{eGFR NON-AFR. AMERI CAN {[id number]) GFR () 93 > OR = 60 mL/min/1. 73m2 [facility] Comment:{eGFR AMERIC AN {[id number]) 01/23/2013 4:26 PM EDT 01/23/2013 11:06 PM [...] needs for GFR calculation. Resulting Agency Comment [id number] us Abel Fierro MD LAB SAME DAY RESULT Final Resul t Performing Organization Address [facility] Co de Phone Number [facility] [address] [place] [address] * (ABNORMAL) CBC INCLUDES DIFFERENTIAL AND PLATELET COUNT (01/23/2013 4:26 PM EDT) WBC 7.3 3.8 - 10.8 Thousand/ uL [facility] Comment:{WHITE BLOOD CELL CO UNT {[id number]) RBC 5.80(H) 3.80 - 5.10 Million/u L [facility] Comment:{RED BLOOD CELL COUN T {[id number]) Hemoglobin 15.0 11.7 - 15.5 g/dL [facility] Comment:{HEMOGLOBIN {[id number]) Hematocrit 47.0(H) 35.0 - 45.0 % [facility] Comment:{HEMATOCRIT {[id number]) MCV 81.1 80.0 - 100.0 fL [facility] Comment:{MCV {[id number]) MCH 25.9(L) 27.0 - 33.0 pg [facility] Comment:{MCH {[id number]) MCHC 31.9(L) 32.0 - 36.0 g/dL [facility] Comment:{MCHC {[id number]) RDW 16.0(H) 11.0 - 15.0 % [facility] Comment:{RDW {[id number]) PLT 327 140 - 400 Thousand/ uL [facility] Comment:{PLATELET COUNT {[id number]) MPV 7.8 7.5 - 11.5 fL [facility] Comment:{MPV {[id number]) Neutrophils # 3548 1500 - 7800 cells/uL [facility] Comment:{ABSOLUTE NEUTROPHIL S {[id number]) Lymphocytes # 2745 850 - 3900 cells/uL [facility] Comment:{ABSOLUTE LYMPHOCYTE S {[id number]) Monocytes # 767 200 - 950 cells/uL [facility] Comment:{ABSOLUTE MONOCYTES {[id number]) Eosinophils # 190 15 - 500 cells/uL [facility] Comment:{ABSOLUTE EOSINOPHIL S {[id number]) Basophils # 51 0 - 200 cells/uL [facility] Comment:{ABSOLUTE BASOPHILS {[id number]) Neutrophils % 48.6 % [facility] Comment:{NEUTROPHILS {[id number]) Lymphocytes % 37.6 % [facility] Comment:{LYMPHOCYTES {[id number]) Monocytes % 10.5 % [facility] Comment:{MONOCYTES {[id number]) Eosinophils % 2.6 % [facility] Comment:{EOSINOPHILS {[id number]) Basophils % 0.7 % [facility] Comment:{BASOPHILS {[id number]) 01/23/2013 4:26 PM EDT 01/23/2013 11:06 PM EDT Narrative Resulting Agency Comment [id number] us Abel Fierro MD LAB SAME DAY RESULT Final Resul t Performing Organization Address [facility] de Phone Number [facility] [address] [place] [address] * ASPARTATE AMINOTRANSFERASE (AST), SERUM (01/23/2013 4:26 PM EDT) AST (SGOT) 22 10 - 35 U/L [facility] Comment:{AST {[id number]) 01/23/2013 4:26 PM EDT 01/23/2013 11:06 PM EDT Narrative Resulting Agency Comment [id number] us Abel Fierro MD LAB SAME DAY RESULT Final Resul t Performing Organization Address [facility] de Phone Number [facility] [address] [place] [address] * ALANINE AMINOTRANSFERASE (ALT), SERUM (01/23/2013 4:26 PM EDT) ALT (SGPT) 21 6 - 29 U/L [facility] Comment:{ALT {[id number]) 01/23/2013 4:26 PM EDT 01/23/2013 11:06 PM EDT Narrative Resulting Agency Comment [id number] Abel Fierro MD LAB SAME DAY RESULT Final Resul t Performing Organization Address [facility] de Phone Number [facility] [address] [place] [address] documented in this encounter Visit Diagnoses Diagnosis Rheumatoid arthritis(714.0) Rheumatoid arthritis documented in this encounter Care Teams Aperture Mask Etcher Relationship Specialty Start Date End Date Alberto Pacheco [address] [place] [address] PCP - General 07/19/08 05/24/13 Charly Saxena [facility] [address] [place] [address] PCP - General Internal Medicine 05/25/13 07/16/17 Cheryl Calderon MD [facility] Medicine [address] [place] [address] PCP - General Internal Medicine 07/17/17 documented as of this encounter
--- OUTSIDE RECORDS SUMMARY | 2024-12-22 16:43 | XMS_ITS | Encounter Summary ---
Author Organization [facility] Address [address] [place] [address] Care Team Providers Care Electronic Warfare Technician Name Role Phone Charly Saxena Primary Care Provider [phone] Cheryl Calderon MD Primary Care Provider [phone] Encounter Details Date Type Department Care Team (Late st Contact Info) Description 07/29/2014 Orders Only [facility] Rheumatology [address] [place] [address] Abel Fierro MD [address] [place] [address] Social History Tobacco Use Types Packs/Day Years [...] Routine 07/29/2014 11:19 AM EDT Rheumatoid arthritis(714.0) ([facility]) ERYTHROCYTE SEDIMENTATION RATE (ESR) Routine 07/29/2014 11:19 AM EDT Rheumatoid arthritis(714.0) ([facility]) CBC INCLUDES DIFFERENTIAL AND PLATELET COUNT Routine 07/29/2014 11:19 AM EDT Rheumatoid arthritis(714.0) ([facility]) ALANINE AMINOTRANSFERASE (ALT), SERUM Routine 07/29/2014 11:19 AM EDT Rheumatoid arthritis(714.0) ([facility]) ASPARTATE AMINOTRANSFERASE (AST), SERUM Routine 07/29/2014 11:19 AM EDT Rheumatoid arthritis(714.0) ([facility]) CREATININE WITH GLOMERULAR FILTRATION RATE, ESTIMATED (EGFR) Routine 07/29/2014 11:19 AM EDT Rheumatoid arthritis(714.0) ([facility]) documented in this encounter Results * Due to [place] state law, this organization might not be sharing negative HIV tests. * C-REACTIVE PROTEIN (CRP) - INFLAMMATION (07/29/2014 11:19 AM EDT) C reactive protein 0.22 <0.80 mg/dL [facility] Comment: {C-REACTIVE PROTEIN {[id number]) Please be advised that patients taking Carboxypenicillins may exhibit falsely decreased C-Reactive Protein levels due to an analytical interference in this assay. 07/29/2014 11:1 9 AM EDT 07/29/2014 4:29 PM EDT Narrative Resulting Agency Comment [id number] us Abel Fierro MD LABORATORY Final Result [facility] [address] [place] [address] * ERYTHROCYTE SEDIMENTATION RATE (ESR), KUNAL (07/29/2014 11:19 AM EDT) Sedimentation Rate [place] (ESR) 14 < OR = 30 mm/h [facility] Comment:{SED RATE BY MODIFIE D SHAJIREN {[id number]) 07/29/2014 11:1 9 AM EDT 07/29/2014 4:29 PM EDT Narrative Resulting Agency Comment [id number] us Abel Fierro MD LAB SAME DAY RESULT Final Resul t Performing Organization Address [facility] Co de Phone Number [facility] [address] [place] [address] * CREATININE WITH GLOMERULAR FILTRATION RATE, ESTIMATED (EGFR) (07/29/2014 11:19 AM EDT) Creatinine 0.93 0.50 - 1.05 mg/dL [facility] Comment: {CREATININE {[id number]) For patients >49 years of age, the reference limit for Creatinine is approximately 13% higher for people identified as -[place]. GFR 67 > OR = 60 mL/min/1. 73m2 [facility] Comment:{eGFR NON-AFR. AMERI CAN {[id number]) GFR () 78 > OR = 60 mL/min/1. 73m2 [facility] Comment:{eGFR AMERIC AN {[id number]) 07/29/2014 11:1 9 AM EDT 07/29/2014 4:29 [...] needs for GFR calculation. Resulting Agency Comment [id number] us Abel Fierro MD LAB SAME DAY RESULT Final Resul t Performing Organization Address City/[facility]/ZIP Co de Phone Number [facility] [address] [place] [address] * ALANINE AMINOTRANSFERASE (ALT), SERUM (07/29/2014 11:19 AM EDT) ALT (SGPT) 19 6 - 29 U/L [facility] Comment:{ALT {[id number]) 07/29/2014 11:1 9 AM EDT 07/29/2014 4:29 PM EDT Narrative Resulting Agency Comment [id number] us Abel Fierro MD LAB SAME DAY RESULT Final Resul t Performing Organization Address City/[facility] Co de Phone Number [facility] [address] [place] [address] * ASPARTATE AMINOTRANSFERASE (AST), SERUM (07/29/2014 11:19 AM EDT) AST (SGOT) 17 10 - 35 U/L [facility] Comment:{AST {[id number]) 07/29/2014 11:1 9 AM EDT 07/29/2014 4:29 PM EDT Narrative Resulting Agency Comment [id number] us Abel Fierro MD LAB SAME DAY RESULT Final Resul t Performing Organization Address [facility] de Phone Number [facility] [address] [place] [address] * (ABNORMAL) CBC INCLUDES DIFFERENTIAL AND PLATELET COUNT (07/29/2014 11:19 AM EDT) WBC 10.9(H) 3.8 - 10.8 Thousand/ uL [facility] Comment:{WHITE BLOOD CELL CO UNT {[id number]) RBC 5.63(H) 3.80 - 5.10 Million/u L [facility] Comment:{RED BLOOD CELL COUN T {[id number]) Hemoglobin 14.8 11.7 - 15.5 g/dL [facility] Comment:{HEMOGLOBIN {[id number]) Hematocrit 45.7(H) 35.0 - 45.0 % [facility] Comment:{HEMATOCRIT {[id number]) MCV 81.1 80.0 - 100.0 fL [facility] Comment:{MCV {[id number]) MCH 26.2(L) 27.0 - 33.0 pg [facility] Comment:{MCH {[id number]) MCHC 32.3 32.0 - 36.0 g/dL [facility] Comment:{MCHC {[id number]) RDW 15.5(H) 11.0 - 15.0 % [facility] Comment:{RDW {[id number]) PLT 331 140 - 400 Thousand/ uL [facility] Comment:{PLATELET COUNT {[id number]) MPV 7.3(L) 7.5 - 11.5 fL [facility] Comment:{MPV {[id number]) Neutrophils # 5875 1500 - 7800 cells/uL [facility] Comment:{ABSOLUTE NEUTROPHIL S {[id number]) Lymphocytes # 3706 850 - 3900 cells/uL [facility] Comment:{ABSOLUTE LYMPHOCYTE S {[id number]) Monocytes # 981(H) 200 - 950 cells/uL [facility] Comment:{ABSOLUTE MONOCYTES {[id number]) Eosinophils # 294 15 - 500 cells/uL [facility] Comment:{ABSOLUTE EOSINOPHIL S {[id number]) Basophils # 44 0 - 200 cells/uL [facility] Comment:{ABSOLUTE BASOPHILS {[id number]) Neutrophils % 53.9 % [facility] Comment:{NEUTROPHILS {[id number]) Lymphocytes % 34.0 % [facility] Comment:{LYMPHOCYTES {[id number]) Monocytes % 9.0 % [facility] Comment:{MONOCYTES {[id number]) Eosinophils % 2.7 % [facility] Comment:{EOSINOPHILS {[id number]) Basophils % 0.4 % [facility] Comment:{BASOPHILS {[id number]) 07/29/2014 11:1 9 AM EDT 07/29/2014 4:29 PM EDT Narrative Resulting Agency Comment [id number] us Abel Fierro MD LAB SAME DAY RESULT Final Resul t [facility] [address] [place] [address] documented in this encounter Visit Diagnoses Diagnosis Rheumatoid arthritis(714.0) Rheumatoid arthritis documented in this encounter Care Teams Electronic Warfare Technician Relationship Specialty Start Date End Date Charly Saxena [facility] [place], [place] [id number] PCP - General Internal Medicine 05/25/13 07/16/17 Cheryl Calderon MD [address] [address] PCP - General Internal Medicine 07/17/17 documented as of this encounter
--- OUTSIDE RECORDS SUMMARY | 2024-12-22 16:43 | XMS_ITS | Encounter Summary ---
Author Organization [facility] Address [address] [place] [address] Phone Care Team Providers Care Salesforce Business Analyst Name Role Phone Patrick Sanchez MD Unavailable [phone] Charly Saxena DO Primary Care Provider Cheryl Calderon MD Primary Care Provider Keren Mabry MD Unavailable Louisa Hogan MD Unavailable Charly Saxena DO Unavailable [phone] Abhinav Muhammad MD Unavailable [phone] Cheryl Giraldo NP Unavailable Wilfrido Steel MD Unavailable [phone] Sharon Martin PA-C Unavailable Iat Pineda CNP Primary Care Provider Cash Fernandes MD Unavailable [phone] Seven Menchaca MD Unavailable [phone] Chavo Jack MD Primary Care Provider Jerseyjayjay Keren Jailyn [facility] Primary Care Provid er Chavo Jack MD Unavailable Willi Wells MD Unavailable Unavailable Jose Thakur MD Unavailable [phone] Dana Rucker [employer] MECHANIC Unavailable Jonathan Alvarez MD Unavailable [phone] Anival Borja MD Unavailable [place] Lyndsay K [employer] ROBOT[employer] MECHANIC Unavailable [phone] Gutierrez Pittman MD Unavailable Encounter Details Date Type Department Care Team (Late st Contact Info) Description 12/27/2017 Ancillary Orders [facility] Orthopedics at [place] [address] [place] [address] Patrick Sanchez MD [address] [place] [address] Department [place] [address] [email or web address] Right [email or web address] Social History Tobacco [...] Description 12/25/2024 2:30 PM EDT Office Visit [facility] Infectious Diseases [address] [place] [address] Dana Rucker INDUSTRIAL ROBOTICS MECHANIC [address] [facility] 2nd [place] [address] [email or web address] 01/01/2025 1:00 PM EDT Office Visit [address] [address] Dana Rucker, [facility] [address] [address] [email or web address] Nereyda Wong, PT [address] [place] [address] 01/07/2025 2:30 PM EDT Office Visit [facility] Pulmonary, Allergy and Critical Care Medicine [address] [place] [address] Jose Thakur MD [address] [place] [address] 01/19/2025 2:30 PM EDT Office Visit [address] [address] Dana Rucker, [facility] [address] [address] [email or web address] Nereyda Wong, PT [address] [place] [address] 01/26/2025 2:30 PM EDT Office Visit [address] [address] Dana Rucker, [facility] [address] [address] Nereyda Wong, PT [address] [place] [address] 01/29/2025 3:00 PM EDT Office Visit [facility] [address] [place] [address] Keren Poon, MANAGER LIGHTING [address] [address] [email or web address] 02/01/2025 3:00 PM EDT Office Visit [address] [place] [address] Keren Poon, ORI [address] [address] 03/02/2025 2:30 PM EST Office Visit [address] [address] Dana Rucker, [address] [address] Nereyda Wong, PT [address] [place] [address] 03/09/2025 2:30 PM EST Office Visit [address] [address] Dana Rucker, [address] [address] Nereyda Wong, PT [address] [place] [address] 03/16/2025 2:30 PM EST Office Visit [address] [address] Dana Rucker, [address] [address] Nereyda Wong, PT [address] [place] [address] 06/03/2025 2:00 PM EST Office Visit [facility] [address] [place] [address] [place] [address] Keren Poon, ORI 170 [facility], 2nd Floor [place] [address] [email or web address] documented as of this encounter Results * [place] Fluoroscopy Less Than 1 Hour (12/27/2017 9:03 AM EDT) Narrative CRYSTAL - 12/27/2017 9:04 AM EDT Fluoroscopy was provided during this procedure. us Patrick RIVERAG [place] MISC Final Result [email or web address] documented in this encounter Visit Diagnoses [...] 07/10/2024 08/09/2024 1:22 AM EDT CDiff-Risk 07/10/2024 07/10/202407/10/2024 11:0 0 AM EDT documented as of this encounter Care Teams Salesforce Business Analyst Relationship Specialty Start Date End Date Charly aSxena PranavDO [address] [address] PCP - General Internal Medicine 10/05/14 04/22/18 Cheryl Calderon MD [address] [place] [address] PCP - General Family Medicine 04/23/18 08/18/20 Ita Pineda CNP [address] [place] [address] [email or web address] PCP - General Internal Medicine 08/19/20 09/17/22 Chavo Jack MD [address] [place] [address] [email or web address] PCP - General Internal Medicine 09/18/22 01/30/23 Keren Poon CNP [address] [place] [address], 2nd [place] [address] [email or web address] PCP - General Family Medicine 01/31/23 Patrick Sanchez MD [address] [place] [address] Department [place] [address] [email or web address] Historical LMR Provider 09/10/14 Keren Mabry MD [address] [place] [address] Historical LMR Provider 07/10/18 Louisa Hogan MD [address] [place] [address] [email or web address] Historical LMR Provider 07/10/1807/29 [place] [address] [place] [address] Historical LMR Provider 07/10/18 08/22/20 Abhinav Muhammad MD [address] [facility] [address] [place] [address] [email or web address] Historical LMR Provider 07/10/18 08/22/20 Cheryl Giraldo NP [address] [place] [address] [email or web address] Historical LMR Provider 07/10/18 08/22/20 Wilfrido Steel MD [address] [facility]. [address] [place] [address] Historical LMR Provider 07/10/18 08/22/20 Sharon Martin PA-C [address] [facility] [address] [place] [address] Historical LMR Provider 07/10/18 08/22/20 Cash Fernandes MD [address] [address] Gastroenterology 08/23/20 Seven Menchaca MD [address] [place] [address] Insurance Assigned Provider 08/04/22 08/03/23 Chavo Jack MD [address] [place] [address] Insurance Assigned Provider 08/03/23 05/04/24 Willi Wells MD [address] [place] [address] Rheumatology 02/04/24 Jose Thakur MD [address] [place] [address] [email or web address] Structural Steel Painter Pulmonary Disease 03/17/24 Dana Rucker FNP [address] [place] [address], [address] [place] [address] [email or web address] Nurse Practitioner Infectious Diseases 05/21/24 Jonathan Alvarez MD [address] [place] [address], [address] [place] [address] [email or web address] Urology 05/14/23 Anival Borja MD [address] [place] [address], [address] [place] [address] [email or web address] Neurologist Neurology 01/04/23 Lyndsay Reynoso FNP [address] [place] [address] Nurse Practitioner Pain Medicine 05/27/22 Gutierrez Pittman MD [address] [place] [address] [employer] Cardiology 05/27/24 documented as of this encounter Additional Source Comments The information contained in this document represents components of the legal health record. It is not the complete legal health record.[facility]
--- OUTSIDE RECORDS SUMMARY | 2024-12-22 16:43 | XMS_ITS | Clinical Summary ---
Author Organization [facility] Address [address] [place] [address] Phone Care Team Providers Care Furnace Utility Operator Name Role Phone Cash Fernandes MD Unavailable Keren Poon [facility] Primary Care Provid er Willi Wells MD Unavailable Unavailable Jose Thakur MD Unavailable Dana Rucker EYEGLASS INSPECTOR Unavailable Jonathan Alvarez MD Unavailable [phone] Anival Borja MD Unavailable [phone] Lyndsay Reynoso EYEGLASS INSPECTOR Unavailable Gutierrez Pittman MD Unavailable [phone] Allergies Active Allergy Reactions Criticality Noted Date Comments Codeine Itching,Swelling,Oth er (See Comments) 08/26/2008 Glvafkr-Pyfxqzqabh-Vei-Caff 08/21/19 21 Gold Salts Hives 08/26/2008 Nitrofurantoin Monohyd/M-Cryst Nausea and/or Vomiting Low 11/11/2020 Sulfa (Sulfonamide Antibiotics) Rash Low 08/26/2008 Medications ELIQUIS 5 mg tablet Take 5 mg by mouth 2 (two) times a day. 09/12/19 21 Active BIOTIN ORAL Take 1 capsule by mouth daily. Active diphenhydramine HCl (BENADRYL ORAL) Take by mouth daily as needed. Active OXYGEN-AIR DELIVERY SYSTEMS MISC 2 Liter NEEDED (route: Oxygen) 08/27/19 21 Active alendronate (FOSAMAX) 70 MG tablet TAKE ONE TABLET BY MOUTH EVERY WEEK Active folic acid (FOLVITE) 1 MG tablet Take 1 tablet by mouth every morning. 02/15/20 23 Active methotrexate 2.5 MG Oral tablet 02/12/20 23 Active ondansetron (ZOFRAN-ODT) 4 MG disintegrating tablet DISSOLVE ONE TABLET BY MOUTH EVERY 8 HOURS NEEDED FOR NAUSEA AND VOMITING Active furosemide (LASIX) 20 MG tablet Take 1 tablet by mouth every morning. 10/27/19 24 Active predniSONE (DELTASONE) 2.5 MG tablet Take 2.5 mg by mouth daily. 12/25/19 24 Active methenamine (HIPREX) 1 gram tablet TAKE ONE TABLET BY MOUTH TWICE A DAY WITH CRANBERRY PILL OR VITAMIN-C FOR UTI PREVENTION. HOLD IF STARTING ABX 12/16/19 24 Active levothyroxine (SYNTHROID, LEVOTHROID) 88 MCG tabletIndications :Hypothyroidism, unspecified type take one tablet by mouth every day 90 tablet 3 02/13/20 24 Active potassium chloride SA (KLOR-CON M20) 20 MEQ ER tabletIndications :Hypokalemia Take 1 tablet (20 mEq total) by mouth 2 (two) times a day. 180 tablet 3 03/05/20 24 Active cholecalciferol (VITAMIN D3) 2,000 unit capsule Take 1 Units by mouth daily. Active azelastine-flutic asone (DYMISTA) 137-50 mcg/spray Cantu Addition 1 spray by Each Nare route 2 (two) times a day. 23 g 11 03/17/20 24 Active estradioL (ESTRACE) 0.01 % (0.1 mg/gram) vaginal cream Place 2 g vaginally 2 (two) times a week. Apply to urethra. 42.5 g 1 04/27/20 24 Active traMADoL (ULTRAM) 50 mg tabletIndications :Rheumatoid arthritis involving multiple sites, unspecified whether rheumatoid factor present Take 1 tablet (50 mg total) by mouth every 8 (eight) hours as needed. 21 tablet 04/30/19 25 Active riTUXimab (RITUXAN) 10 mg/mL injection Inject into the vein every 6 (six) months. Active dicyclomine (BENTYL) 20 mg tablet Take 20 mg by mouth 3 (three) times a day as needed (abdominal pain). 04/30/19 25 Active lactobacillus rhamnosus, GG, (CULTURELLE) 10 billion cell capsule Take 1 capsule by mouth 2 (two) times a day. 60 capsule 05/13/19 25 Active cyclobenzaprine (FLEXERIL) 5 MG tablet Take 5 mg by mouth 3 (three) times a day as needed. 05/22/19 25 Active carvedilol (COREG) 12.5 MG tablet TAKE ONE TABLET BY MOUTH TWICE A DAY WITH MEALS 180 tablet 3 06/11/19 25 Active benzonatate (TESSALON) 100 MG capsuleIndication s:Acute cough Take 1 capsule (100 mg total) by mouth 3 (three) times a day as needed for cough. 20 capsule 06/11/19 25 Active sucralfate (CARAFATE) 1 gram tablet Take 1 tablet (1 g total) by mouth 4 (four) times a day. 120 tablet 5 07/02/19 25 2024 Active OXYBUTYNIN CHLORIDE ORAL Take 10 mg by mouth daily. 07/15/19 25 Active cranberry fruit extract (CRANBERRY EXTRACT) 500 mg Tab Take 15,000 mg by mouth daily. 07/15/19 25 Active losartan (COZAAR) 25 MG tabletIndications :Primary hypertension TAKE ONE TABLET BY MOUTH ONCE DAILY 90 tablet 3 07/24/19 25 Active famotidine (PEPCID) 20 MG tabletIndications :Dyspepsia Take 1 tablet (20 mg total) by mouth 2 (two) times a day. 60 tablet 2 09/19/19 25 Active escitalopram oxalate (LEXAPRO) 10 MG tabletIndications :Depressive disorder TAKE ONE TABLET BY MOUTH EVERY DAY 90 tablet 3 12/10/19 25 Active LORazepam (ATIVAN) 0.5 MG tabletIndications :Anxiety state Take 1 tablet (0.5 mg total) by mouth 2 (two) times a day as needed for anxiety. 56 tablet 12/11/19 25 Active escitalopram oxalate (LEXAPRO) 10 MG tabletIndications :Depressive disorder take one tablet by mouth every day 30 tablet 11 11/27/19 24 2024 Discontinued LORazepam (ATIVAN) 0.5 MG tabletIndications :Anxiety state Take 1 tablet (0.5 mg total) by mouth 2 (two) times a day as needed for anxiety. 56 tablet 11/10/19 25 2024 Discontinued(R eomackenzieer) Active Problems Problem Noted Date Diagnosed Date Dyspepsia 09/18/2024 Hemorrhoids 07/30/2024 Assessment & Plan (09/15/2024 7:56 PM EDT): She reported a small amount of bright red blood from the rectum, likely due to hemorrhoids exacerbated by diarrhea. - Jvxv-jkw-vkvkzbi hemorrhoid treatments such as topical steroids for inflammation, lidocaine for pain, and Preparation H for swelling and bleeding were recommended. - She already has Preparation H wipes at home. - Monitoring for increased bleeding or pain was advised. Aortic insufficiency 05/27/2024 Assessment & Plan (06/06/2024 12:33 PM EST): Echocardiogram done 10/01/23 w/moderate aortic regurgitation, advanced from previous imaging (2019). No audible murmur, asymptomatic. Plan for repeat echo in 1 year (due 09/2025). Recurrent urinary tract infection 05/22/2024 Assessment & Plan (08/18/2024 3:30 PM EDT): Continue methenamine with vitamin C along with [...] would warrant emergent evaluation. Assessment & Plan (06/19/2024 3:41 PM EST): [...] of future UTIs. A referral to a torch brazer will be made. Dyspnea on exertion 01/02/2024 Assessment & Plan (07/13/2024 10:28 AM EDT): -History of untreated CONOR, her shot core drill operator helper also notes history of cardiac issues and likely HFpEF with moderate mitral regurgitation. Patient has regular echocardiograms manages blood pressure and continues to take low-dose furosemide held iso setting of volume depletion. -no acute respiratory symptoms Assessment & Plan (07/12/2024 9:11 AM EDT): -History of untreated CONOR, her shot core drill operator helper also notes history of cardiac issues and likely HFpEF with moderate mitral regurgitation. Patient has regular echocardiograms manages blood pressure and continues to take low-dose furosemide which I will hold in the setting of volume depletion. -no acute respiratory symptoms Assessment & Plan (07/11/2024 8:43 AM EDT): -History of untreated CONOR, her shot core drill operator helper also notes history of cardiac issues and likely HFpEF with moderate mitral regurgitation. Patient has regular echocardiograms manages blood pressure and continues to take low-dose furosemide which I will hold in the setting of volume depletion. -no acute respiratory symptoms Assessment & Plan (07/10/2024 5:03 PM EDT): History of untreated CONOR, her shot core drill operator helper also notes history of cardiac issues and [...] her oxygen levels. A referral to a shot core drill operator helper will be made today. If there is no improvement, a follow-up with the shot core drill operator helper is recommended. Allergic rhinitis 11/21/2023 Assessment & [...] neurology (Dr Borja) and also pain management ([facility]). Assessment & Plan (09/09/2023 8:42 AM EDT): Left sided face and head pain w/ dx: occipital neuralgia. Recently had nerve ablation performed on the left side, no improvement noted from this procedure yet. Followed by neurology (Dr Borja) and also pain management ([facility]). Assessment & Plan (06/07/2023 12:36 PM EST): Left sided face and head pain w/ dx: occipital neuralgia over the last 9 months. Followed by neurology (Dr Borja) and also pain management ([facility]). Awaiting insurance approval for nerve ablation per her report. Assessment & Plan (05/23/2023 2:20 PM EST): Left sided face and head pain w/ dx: occipital neuralgia over the last 8-9 months. Followed by neurology (Dr Borja) and also pain management ([facility]). Cervical radiculopathy 05/25/2022 Assessment & Plan (06/06/2024 [...] aware to call clinic with any concerns. Assessment & Plan (01/08/2022 11:24 PM EDT): [...] aware to call clinic with any concerns. OAB (overactive bladder) 09/28/2020 Assessment & Plan [...] INFARCTION WRITTEN ON 09/28/2020 7:31 AM BY ESDRAS RODRIGUEZ, MEDICAL DETAILIST multiple Obstructive sleep apnea, adult 08/20/2020 Overview [...] & Plan (04/15/2024 8:14 PM EST): Sees shot core drill operator helper for shortness of breath with exertion uses oxygen as needed has sleep apnea but untreated-in the past had difficulty with CPAP machine Assessment & Plan (04/14/2024 2:18 PM EST): Sees shot core drill operator helper for shortness of breath with exertion uses oxygen as needed has sleep apnea but untreated-in the past had difficulty with CPAP machine Assessment & Plan (04/13/2024 11:58 AM EST): Sees shot core drill operator helper for shortness of breath with exertion uses [...] AC. HRR on exam today. Followed by [facility] cardiology (Dr Pittman). Assessment & Plan [...] scheduled for a follow-up appointment with her maintenance supervisor, Dr. Puckett, on 09/11/2023. If required, I [...] arthritis involving multiple sites Assessment & Plan (09/15/2024 7:56 PM EDT): She has been off her rheumatoid arthritis medications, including methotrexate and Rituxan, due to the infection. - She received injections in both knees for bursitis during her recent rheumatology visit. - Her hands appear slightly swollen, and she reports stiffness in her toes and hands. - She plans to resume Rituxan and methotrexate after completing the vancomycin treatment and potentially after the fecal transplant. Assessment & Plan (07/13/2024 10:28 AM EDT): -maintained on prednisone, Rituxan methotrexate, Rituxan and methotrexate were held last admission and have remained on hold -waiting on a new appointment with a train system operator to resume treatment, has had increasing joint pain and is now close to 3 months overdue for Rituxan, ID can advise in follow up on resuming. -no indication for stress dose steroids. Assessment & Plan (07/12/2024 9:11 AM EDT): -maintained on prednisone, Rituxan methotrexate, Rituxan and methotrexate were held last admission and have remained on hold -waiting on a new appointment with a train system operator to resume treatment, has had increasing joint pain and is now close to 3 months overdue for Rituxan, will have infectious diseases weigh in -no indication for stress dose steroids. Assessment & Plan (07/11/2024 8:43 AM EDT): -maintained on prednisone, Rituxan methotrexate, Rituxan and methotrexate were held last admission and have remained on hold -waiting on a new appointment with a train system operator to resume treatment, has had increasing joint [...] waiting on a new appointment with a train system operator to resume treatment, has had increasing joint [...] patient will continue her follow-up with her train system operator, Dr. Franklin, in 09/2023. Assessment & Plan [...] (05/25/2022 9:19 PM EST): Establishing with new train system operator. Discussed planning to reduce frequency and dose [...] not tolerated due to GI upset/loose stool Unclear the exact dx the eye inflammation but will try to obtain opthal notes or review Assessment & Plan (07/03/2021 10:52 PM EST): [...] try to obtain opthal notes or review Assessment & Plan (08/19/2020 12:28 PM EDT): [...] UNSPECIFIED WRITTEN ON 08/19/2020 12:37 PM BY AVINASH MALDONADO MD Usual medication ordered Assessment & [...] C. difficile colitis 08/26/2008 Assessment & Plan (09/18/2024 2:55 PM EDT): Pt continues with formed stools since completing the VOWST fecal microbota transplant. She is not currently experiencing any symptoms of post-infectious irritable bowel syndrome. Discussed that should she develop diarrhea, she should contact the office. Pt is concerned with ongoing dyspepsia. Encouraged her to schedule follow-up with her GI provider to discuss. Reviewed that PPIs are associated with increased likelihood of C diff recurrence and that decision as to whether to initiate this would be based on potential benefit vs potential risk. I did prescribe famotidine at today's visit at pt's request. Reviewed importance of judicious use of antibiotics in the future. Pt has a history of recurrent UTI. We have an order for standing urinalysis with reflex to culture to ensure the narrowest spectrum antibiotic is prescribed as possible. We may also consider prescribing oral vancomycin if she needs an antibiotic as a preventative. Discussed that severe abdominal pain, intractable diarrhea, or signs of dehydration would warrant emergent evaluation. Pt and her would like to follow-up once more before going to an as needed follow-up. Assessment & Plan (09/15/2024 7:55 PM EDT): She is currently on a tapering dose of vancomycin, taking one dose every 12 hours. The treatment will continue for another month. - Infectious disease is coordinating a fecal transplant, and she is awaiting further instructions. - She has been advised to complete the vancomycin course unless instructed otherwise by the infectious disease team. - The possibility of stopping vancomycin a few days early for the transplant was discussed, but it will depend on the infectious disease team's recommendation. Assessment & Plan (08/18/2024 3:32 PM EDT): Pt reports having formed stools since stopping vancomycin and receiving the VOWST fecal microbiota transplant. Reviewed that post-infectious IBS is common. Discussed that should she develop diarrhea, she should contact the office. May continue probiotic and Kefir. Discussed that severe abdominal pain, intractable diarrhea, or signs of dehydration would warrant emergent evaluation. F/U in about 4 weeks. Assessment & Plan (07/24/2024 3:09 PM EDT): Pt has had 3 bouts of C diff. She has been unable to fully wean off vancomycin. She is unable to enroll in the [facility] fecal transplant program due to use of methotrexate and rituximab. We will pursue prescribing VOWST for fecal transplant. Discussed benefits vs risk with pt and Faustino. Filled out the [facility] enrollment paperwork and faxed along [...] COLITIS WRITTEN ON 04/14/2024 2:18 PM BY AVINASH MALDONADO MD CT showing pancolitis. Recently on [...] COLITIS WRITTEN ON 04/13/2024 11:58 AM BY AVINASH MALDONADO MD CT showing pancolitis. Recent abx, [...] WRITTEN ON 04/12/2024 3:51 PM BY YOLY GRIMES DO CT showing [...] follow-up with the pain management team at [facility]. 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 Urine toxicology screen May [...] Encounters Date Type Department Care Team Description 12/22/2024 2:30 PM EDT Office Visit [address] [address] Dana Rucker FNP Troy, Stacy, PT PFD (pelvic floor dysfunction) (Primary Dx) 12/17/2024 Plan of Care Documentation [facility] [address] [place] [address] 12/16/2024 3:15 PM EDT Office Visit [address] [address] Dana Rucker FNP Troy, Stacy, PT PFD (pelvic floor dysfunction) (Primary Dx) 12/11/2024 1:41 PM EDT - 12/11/2024 11:59 PM EDT Hospital Encounter [address] [address] Keren Poon CNP Discharge Disposition: Home or Self Care 12/09/2024 Refill [facility] [address] [place] [address] Dimitry Mccarthy MD Medication Refill 10/16/2024 9:29 AM EDT - 10/16/2024 11:59 PM EDT Hospital Encounter [facility] X-Ray [address] [address] Argelia Taylor NP Discharge Disposition: Home or Self Care 09/30/2024 Transcribe Orders Virtual Department [address] [place] [id number] Argelia Taylor NP Globus sensation (Primary Dx) 06/06/2024 Procedure Pass [address] [address] from Last 3 Months Immunizations Immunization Administration Dates Next Due COVID-19 (Pre-02/18) Pfizer Vaccine, mRNA, mohan-sucrose, PF 09/11/2021 [id number] FORMULATION 05/13/2009 INFLUENZA, SPLIT VIRUS, TRIVALENT PF 04/02/2012 INFLUENZA, SPLIT VIRUS, TRIV ALENT W/ PRESERVATIVE IM 03/08/2004,04/02/2002 Influenza High-Dose Quadriva lent Preservative Free IM 03/07/2022 Influenza Quadrivalent Adjuv anted Preservative Free IM 02/12/2021 Influenza Quadrivalent Prese rvative Free IM 01/07/2020,02/03/2015,01/21/2014 Influenza Recombinant Prashant valent Preservative Free IM 03/09/2023 Influenza Trivalent Adjuvant ed Preservative free IM 02/26/2024 Influenza, Unspecified Formulation 05/27,02/12/2009,02/28/2008,01/27 PPD Test 01/02/2017 Pneumococcal conjugate PCV13 09/27/2014 Pneumococcal polysaccharide PPSV23 07/10,10/11/2011,02/27/2007,06/26 Pneumococcal, Unspecified Formulation 02/27/2007 RSV Vaccine (bivalent) 03/11/2024 Td (adult),2 Lf Tetanus Toxo id, PF, Adsorbed 07/05/1997 Tdap 09/27/2014,04/14/2010 Family History Medical History Relation Comments Cancer Father Pancreatic cancer Father COPD Mother Cancer Mother Pneumonia Mother Pancreatic cancer Sister 1 Cancer Sister 8 Relation Status Comments Brother Alive Father pancreatic ca Mother Alive lung cancer Sister 1 (Age 58) pancreatic ca Sister 2 Alive Sister 3 Alive Sister 4 Alive Sister 5 Alive Sister 6 Alive Sister 7 Alive Sister 8 Alive Social History Tobacco Use Types Packs/Day [...] Sign Reading Time Taken Comments Blood Pressure 134/80 09/18/2024 1:51 PM EDT Pulse 88 09/18/2024 1:51 PM EDT Temperature 36.8 C (98.3 F) 09/18/2024 1:51 PM EDT Respiratory Rate 16 08/10/2024 11:43 AM EDT Oxygen Saturation 97% 09/18/2024 1:51 PM EDT Inhaled Oxygen Concentration - - Weight 75.3 kg (166 lb) 09/18/2024 1:51 PM EDT Height 167.6 cm (5' 6 ) 07/10/2024 5:04 PM EDT Body Mass Index 26.79 07/10/2024 5:04 PM EDT Plan of Treatment Upcoming Encounters Date Type Department Care Team (Late st Contact Info) Description 12/25/2024 2:30 PM EDT Office Visit [facility] Infectious Diseases [address] [place] [address] Dana Rucker, EYEGLASS INSPECTOR [address] [address] 01/01/2025 1:00 PM EDT Office Visit [address] [address] Dana Rucker, EYEGLASS INSPECTOR [address] [address] Nereyda Wong, PT [address] [place] [address] 01/07/2025 2:30 PM EDT Office Visit [facility] Pulmonary, Allergy and Critical Care Medicine [address] [place] [address] Jose Thakur MD [address] [place] [address] 01/19/2025 2:30 PM EDT Office Visit [address] [address] Dana Rucker, EYEGLASS INSPECTOR [address] [address] Nereyda Wong, PT [address] [place] [address] 01/26/2025 2:30 PM EDT Office Visit [address] [address] Dana Rucker EYEGLASS INSPECTOR [address] [address] Nereyda Wong, PT [address] [place] [address] 01/29/2025 3:00 PM EDT Office Visit [address] [place], [place] [address] Keren Poon, MEDICAL DETAILIST [address] [place] [address] 02/01/2025 3:00 PM EDT Office Visit [address] [place] [address] Keren Poon, MEDICAL DETAILIST [address] [place] [address] 03/02/2025 2:30 PM EST Office Visit [address] [address] Dana Rucker, [address] [address] Nereyda Wong, PT [address] [place] [address] 03/09/2025 2:30 PM EST Office Visit [address] [address] Dana Rucker, [facility] [address] [address] Nereyda Wong, PT [address] [place] [address] 03/16/2025 2:30 PM EST Office Visit [address] [place] [address] DarnellJosefinah Leslee, EYEGLASS INSPECTOR [address]nd [place] [address] [email or web address] Marvin Nereyda, PT [address] [place] [address] [email or web address] 06/03/2025 2:00 PM EST Office Visit [facility] [address] [place] [address] [place] [address] Keren Poon, MEDICAL DETAILIST [address] [facility], 2nd [place] [address] [email or web address] Health Maintenance Due Date Last Done Comments ZOSTER VACCINES (1 of 2) 1974 COLOGUARD 01/18/2000 COLONOSCOPY 01/18/2000 COLORECTAL CANCER SCREENING 01/18/2000 FIT TEST 01/18/2000 FOBT 01/18/2000 SIGMOIDOSCOPY 01/18/2000 VIRTUAL COLONOSCOPY 01/18/2000 COVID-19 VACCINE (8 - Pfizer risk 2023- season) 2024 02/26/2024, 03/09/2023, 04/13/2022, Additional history exists Adult Td,Tdap Booster 09/27/2024 09/27/2014 , 04/14/2010, 07/05/1997 INFLUENZA VACCINE (#1) 2024 , 03/09/2023, 03/07/2022, Additional history exists LIPID PANEL 01/01/2025 01/02/2024, 06/27, 07/13/2021, Additional history exists BLOOD PRESSURE 03/21/2025 09/18/2024 DEPRESSION SCREENING 05/27/2025 05/27/2024, 05/09/19 24 CREATININE LEVEL 07/12/2025 07/12/2024, , 07/11/2024, Additional history exists POTASSIUM LEVEL 07/12/2025 07/12/2024, 06/27, 07/11/2024, Additional history exists TSH LEVEL 07/12/2025 07/12/2024, 09/0 08/2023, 06/13/2022, Additional history exists MAMMOGRAM 12/11/2026 12/11/2024, 03/3 04/2021, 03/10/2018, Additional history exists SCREENING FOR DIABETES 07/13/2027 07/12/2024, 2022 OSTEOPOROSIS SCREENING INITIAL (ONE-TIME) Completed 04/25/2021, 12/05/2018 PNEUMOCOCCAL VACCINES (50+ years) Completed 07/10/2021, 09/27/2014, 10/11/2011, Additional history exists HEPATITIS C SCREENING Completed 07/25/2022 , 01/05/2022, 11/15/2020, Additional history exists RSV VACCINE Completed 03/11/2024 [...] age to complete this topic MENINGOCOCCAL VACCINES (B) Aged Out N o longer eligible based on patient's age to complete this topic Medical Devices Implanted Type Area Design Tech Device Identifier Shelf Expiration Date Model / Serial / Lot Screw Bone 2.4x28mm Compression Long Thread Headless - [id number] Implanted:Qty: 2 on 12/20/2017 by Patrick Sanchez MD at [facility] NODATA Right: Hand SYNTHES 02.226.3 28 / / Stem Finger Size 20 Metacarpophalangeal Distal Silicone Preflexed - [id number] Implanted:Qty: 1 on 12/20/2017 by Patrick Sanchez MD at [facility] STANDARD Right: Hand [employer] MJ 02/27/2020 [id number] / / [id number] Stem Finger Size 20 Metacarpophalangeal Distal Silicone Preflexed - [id number] Implanted:Qty: 1 on 12/20/2017 by Patrick Sanchez MD at [facility] STANDARD Right: Hand [employer] MJ 08/27/2019 [id number] / / [id number] Stem Finger Joint Metacarpophalangeal Size 10 Silicone Preflexed- Duplicate - Use Ps # [id number] - [id number] Implanted:Qty: 1 on 12/20/2017 by Patrick Sanchez MD at [facility] STANDARD Right: Hand [employer] MJ 02/27/2020 [id number] / / [id number] Implant Finger Size 5 Pre Flexed Cementless Mcp Pyrocarbon Silicone - [id number] Implanted:Qty: 1 on 12/20/2017 by Patrick Sanchez MD at [facility] STANDARD Right: Hand [employer] MJ 02/27/2020 [id number] / / [id number] Right Ankle,Hand,Elbow Left Hand Procedures Procedure Name Priority Date/Time Associated Diagnosis Comments BI MAMMOGRAM SCREENING WITH TOMOSYNTHESIS WITH CAD (BILATERAL) Routine 12/11/2024 2:06 PM EDT Breast cancer screening by mammogram FL BARIUM SWALLOW ESOPHAGRAM DOUBLE CONTRAST Routine 10/16/2024 10:06 AM EDT Globus sensation TSH Routine 07/12/2024 5:44 AM EDT BASIC METABOLIC PANEL Routine 07/12/2024 5:44 AM EDT LIPID PANEL Routine 01/02/2024 2:12 PM EDT Primary hypertension HEPATITIS C ANTIBODY, QUALITATIVE Routine 01/05/2022 1:56 PM EDT Rheumatoid arthritis involving multiple sites with positive rheumatoid factor BD DXA AXIAL (SPINE) WITH HIP Routine 04/25/2021 2:45 PM EST Corticosteroid-induc ed osteoporosis from Last 3 Months or Most Recently Relevant to Health Maintenance Results * BI MAMMOGRAM SCREENING WITH TOMOSYNTHESIS WITH CAD (BILATERAL) (12/11/2024 2:06 PM EDT) Anatomical Region Laterality Modality Breast Left, Breast Right, Breast Bilateral Bila teral Mammography 12/14/2024 10:3 1 AM EDT Impressions 12/14/2024 10:32 AM EDT No mammographic evidence of malignancy in either breast. Annual screening mammography is recommended. BI-RADS 1 NEGATIVE The patient will be notified of the results and recommendations. Narrative 12/14/2024 10:32 AM EDT BI MAMMOGRAM SCREENING WITH TOMOSYNTHESIS WITH CAD (BILATERAL) Additional patient information: Screening. COMPARISON: Comparison is made with relevant prior imaging. Breast composition: There are scattered areas of fibroglandular density. FINDINGS: No abnormal masses, suspicious calcifications, or other significant findings are identified mammographically in either breast. There has been no significant interval change. Procedure Note Joann Montez MD - 12/14/2024 BI MAMMOGRAM SCREENING WITH TOMOSYNTHESIS WITH CAD (BILATERAL) Additional patient information: Screening. COMPARISON: Comparison is made with relevant prior imaging. Breast composition: There are scattered areas of fibroglandular density. FINDINGS: No abnormal masses, suspicious calcifications, or other significantfindings are identified mammographically in either breast. There has been no significant interval change. IMPRESSION: No mammographic evidence of malignancy in either breast. Annual screening mammography is recommended. BI-RADS 1 NEGATIVE The patient will be notified of the results and recommendations. Keren Poon MEDICAL DETAILIST IMG MG EXAMS Elana l Result * FL BARIUM SWALLOW ESOPHAGRAM DOUBLE CONTRAST (10/16/2024 10:06 AM EDT) Anatomical Region Laterality Modality Chest Radio Fluoroscop y 10/16/2024 11:3 5 AM EDT Impressions 10/16/2024 4:44 PM EDT Mild to moderate esophageal dysmotility. FLUOROSCOPY TIME: 1 minute and 3 seconds NUMBER OF IMAGES: 247 The examination was performed by Ross FOREMAN. Dr. Tom Valentine was immediately available for portions of the procedure as needed. ATTESTATION: I, Tom Valentine as teaching physician, have reviewed the images for this case and if necessary edited the report originally created by Ross Hernandez. Narrative 10/16/2024 4:44 PM EDT FL BARIUM SWALLOW ESOPHAGRAM DOUBLE CONTRAST HISTORY: Globus sensation. Choking. COMPARISON: CT abdomen 07/10/2024. CT chest 04/01/2024. TECHNIQUE: Double contrast barium swallow examination was performed with Sodium Carbonate and Barium. Examination was slightly limited due to patient condition. FINDINGS: SWALLOW: No corwin aspiration. ESOPHAGUS: Motility: Mild to moderate esophageal dysmotility evidenced by a diminished primary peristaltic wave and tertiary contractions. Mucosa: No discrete mass, ulceration or fixed stricture demonstrated fluoroscopically. Distensibility: Normal. GASTROESOPHAGEAL JUNCTION: No definite evidence of a hiatal hernia however the prone Valsalva maneuver was not performed. GASTROESOPHAGEAL REFLUX: Not assessed due to patient's ability to tolerate supine imaging. TABLET: A 13 mm barium tablet passed into the stomach without difficulty. Visualized portion of the stomach and proximal small bowel are unremarkable. Procedure Note Tom Valentine MD - 10/16/2024 FL BARIUM SWALLOW ESOPHAGRAM DOUBLE CONTRAST HISTORY: Globus sensation. Choking. COMPARISON: CT abdomen 07/10/2024. CT chest 04/01/2024. TECHNIQUE: Double contrast barium swallow examination was performed withSodium Carbonate and Barium. Examination was slightly limited due topatient condition. FINDINGS: SWALLOW: No corwin aspiration. ESOPHAGUS: Motility: Mild to moderate esophageal dysmotility evidenced by adiminished primary peristaltic wave and tertiary contractions. Mucosa: No discrete mass, ulceration or fixed stricture demonstratedfluoroscopically. Distensibility: Normal. GASTROESOPHAGEAL JUNCTION: No definite evidence of a hiatal hernia howeverthe prone Valsalva maneuver was not performed. GASTROESOPHAGEAL REFLUX: Not assessed due to patient's ability to toleratesupine imaging. TABLET: A 13 mm barium tablet passed into the stomach withoutdifficulty. Visualized portion of the stomach and proximal small bowel areunremarkable. IMPRESSION: Mild to moderate esophageal dysmotility. FLUOROSCOPY TIME: 1 minute and 3 seconds NUMBER OF IMAGES: 247 The examination was performed by RRARoss. Dr. Tom Valentine wasimmediately available for portions of the procedure as needed. ATTESTATION: I, Tom Valentine as teaching physician, have reviewed theimages for this case and if necessary edited the report originally createdby Ross Hernandez. us Argelia Taylor VEST FINISHER IMG FL MISC Final Res ult * TSH (07/12/2024 5:44 AM EDT) TSH 2.09 0.27 - 4.20 uIU/mL [facility] 07/12/2024 5:44 AM EDT 07/12/2024 6:05 AM EDT us Yoly Grimes DO, MPH LAB BLOOD ORDERABLES Final Result Performing Organization Address City/State/[facility] Co de Phone Number [address] [address] * (ABNORMAL) Basic metabolic panel (07/12/2024 5:44 AM EDT) SODIUM 145 133 - 146 mmol/L [facility] CHLORIDE 116(H) 96 - 108 mmol/L [facility] POTASSIUM 4.0 3.3 - 5.1 mmol/L [facility] CO2 17(L) 21 - 35 mmol/L [facility] BUN 8 6 - 19 mg/dL [facility] CREATININE 0.50 0.5 - 1.5 mg/dL [facility] GLUCOSE 83 70 - 99 mg/dL [facility] CALCIUM 8.3(L) 8.4 - 10.3 mg/dL [facility] EGFR 101 >59 mL/min/1.7 3m2 [facility] Comment:Estimated glomerular filtration rate calculated using the CKD-EPI refit equation. ANION GAP 16 10 - 20 mmol/L [facility] 07/12/2024 5:44 AM EDT 07/12/2024 6:05 AM EDT us Yoly K Steve DO, MPH LAB BLOOD ORDERABLES Final Result Performing Organization Address City/[facility]/ZIP Co de Phone Number [address] [address] * (ABNORMAL) Lipid panel (01/02/2024 2:12 PM EDT) HDL 63 mg/dL [facility] Comment: Interpretation <40 mg/dL: Low HDL cholesterol (major risk factor for CHD) Greater than or equal to 60 mg/dL: High HDL cholesterol ( negative risk factor for CHD) HDL - cholesterol is affected by a number of factors, e.g. smoking, excerise, hormones, sex and age. CHOLESTEROL 169 0 - 240 mg/dL [facility] TRIGLYCERIDES 102 30 - 160 mg/dL [facility] LDL 86 50 - 129 mg/dL [facility] Comment: LDL levels in terms of risk for coronary heart disease: <100 mg/dL: Optimal 100-129 mg/dL: Near or above optimal 130-159 mg/dL: Borderline high 160-189 mg/dL: High >190 mg/dL: Very High CARDIAC RISK RATIO 2.7(L) 3.3 - 4.4 [facility] Blood 01/02/2024 2:12 PM EDT 01/02/2024 2:18 PM EDT us Kerenelsie Poon CNP LAB BLOOD ORDERABLES Final Result Performing Organization Address [facility] Co de Phone Number [address] [address] * Hepatitis C antibody, qualitative (01/05/2022 1:56 PM EDT) HCV NON-REACTIV E NON-REACTI VE [facility] Blood 01/05/2022 1:56 PM EDT 01/05/2022 1:58 PM EDT us Marleny Acosta PA LAB BLOOD ORDERABLES Fin al Result Performing Organization Address City/[facility]/ZIP Co de Phone Number [address] [address] * BD DXA AXIAL (SPINE) WITH HIP (04/25/2021 2:45 PM EST) Anatomical Region Laterality Modality Bone Density Bone Density 04/25/2021 2:59 PM EST Impressions 04/25/2021 3:01 PM EST Lumbar spine, bilateral femoral neck and total hip osteopenia. Narrative 04/25/2021 3:01 PM EST COMPARISON: None. BONE DENSITY FINDINGS: History: This is a 66-year-old postmenopausal female. Evaluation of the lumbar spine and hips was performed and felt to be technically adequate. L2&L4 vertebral bodies total bone mineral density was calculated at 0.897 gm/cm2 with a T-score of -1.6 falling within the WHO classification of osteopenia. Z-score of 0.3. Fracture risk increased. Right femoral neck bone mineral density was calculated at 0.643 gm/cm2 with a T- score of -1.9 falling within the WHO classification of osteopenia. Z-score of -0.3. Total Right hip bone mineral density was calculated at 0.700 gm/cm2 with a T- score of -2 falling within the WHO classification of osteopenia. Z-score of -0.7. Left femoral neck bone mineral density was calculated at 0.662 gm/cm2 with a T- score of -1.7 falling within the WHO classification of osteopenia. Z-score of -0.1. Total Left hip bone mineral density was calculated at 0.676 gm/cm2 with a T- score of -2.2 falling within the WHO classification of osteopenia. Z-score of -0.9. Procedure Note Mode Goldberg MD - 04/25/2021 [...] bone mineral density was calculated at 0.643 gm/mv4zggn a T- score of -1.9 falling within [...] hip osteopenia. Mode Ramos MD IMG BD BONE DENSI TY DEXA Final Result from Last 3 Months or Most Recently Relevant to Health Maintenance Insurance MEDICARE PART A & B [facility] MEDICARE PART A & B [facility] MEDICARE PART A & B [facility] MEDICARE [facility] A & B [facility] MEDICARE PART A & B [facility] MEDICARE PART A & B [facility] MEDICARE PART A & B [facility] MEDICARE PART A & B [employer] [facility] MEDICARE PART A & B [facility] FEDERAL Advance Directives For more information, please contact: [phone] (9AM - 5PM [facility], Saturday-Saturday) Documents on File Type Date Recorded Patient Php Wordpress Developer Expl anation MOLST 08/22/2020 4:20 PM Healthcare [...] File Name Relationship Healthcare Agent Relationship Communication Tom Espino Spouse .Primary Healt h Care Agent (Proxy form on file) Care Teams Furnace Utility Operator Relationship Specialty Start Date End Date Keren Poon ORI Glaser [address] [place] [address] 2[address] [place] [address] [email or web address] PCP - General Family Medicine 01/31/23 Cash Fernandes MD [address] [place] [address] Gastroenterology 08/23/20 Willi Wells MD [address] [place] [address] [place] [address] Rheumatology 02/04/24 Jose Thakur MD [address] [place] [address] Wax Molder Pulmonary Disease 03/17/24 Dana Rucker FNP 15 [facility], [address] [place] [address] [email or web address] Nurse Practitioner Infectious Diseases 05/21/24 Jonathan Alvarez MD [facility], [address] [place] [address] Urology 05/14/23 Anival Borja MD [address] [place] [address], [address] [place] [address] [email or web address] Neurologist Neurology 01/04/23 Lyndsay Reynoso FNP [address] [place] [address] Nurse Practitioner Pain Medicine 05/27/22 Gutierrez Pittman MD [address] [place] [phone] Tube Sorter Cardiology 05/27/24 Additional Source Comments The information contained in this document represents components of the legal health record. It is not the complete legal health record.[facility]
--- OUTSIDE RECORDS SUMMARY | 2024-12-22 16:43 | XMS_ITS | Encounter Summary ---
Author Organization [facility] Address [address] [place] [address] Phone Care Team Providers Care Machine Tool Designer Name Role Phone Cash Fernandes MD Unavailable [phone] Keren Poon [facility] Primary Care Provid er Chavo Jack MD Unavailable Willi Wells MD Unavailable Unavailable Jose Thakur MD Unavailable Dana Rucker CHUCKING MACHINE SET UP OPERATOR Unavailable [phone] Jonathan Alvarez MD Unavailable [phone] Anival Borja MD Unavailable [phone] Lyndsay Reynoso CHUCKING MACHINE SET UP OPERATOR Unavailable Gutierrez Pittman MD Unavailable [phone] Encounter Details Date Type Department Care Team (Latest Contact Info) Description 04/30/2024 Transcribe Orders Virtual Department [address] [place] [address] Argelia Taylor, JULI [address] [place], [place] [id number] Lower abdominal pain (Primary Dx); Diarrhea, unspecified [...] [facility] Infectious Diseases [address] [place] [address] Dana Rucker FNP [address] [address] 01/01/2025 1:00 PM EDT Office Visit [facility] [address] [place] [address] Dana Rucker FNP 15 [facility], [address] [place] [address] Nereyda Wong, PT [address] [place] [address] 01/07/2025 2:30 PM EDT Office Visit [facility] 10 [facility] [place] [address] Jose Thakur MD 30 [place] [address] 01/19/2025 2:30 PM EDT Office Visit [facility] [address] [place] [address] Dana Rucker, CHUCKING MACHINE SET UP OPERATOR 15 [facility], [address] [place] [address] Nereyda Wong, PT [address] [place] [address] 01/26/2025 2:30 PM EDT Office Visit [address] [address] Dana Rucker, [facility] [address] [address] Nereyda Wong, PT [address] [place] [address] 01/29/2025 3:00 PM EDT Office Visit [address] [place] [address] Keren Poon, MISSILE INSPECTOR [address] [place] [address] 02/01/2025 3:00 PM EDT Office Visit [address] [place] [address] Keren Poon, ORI [address] [place] [address] 03/02/2025 2:30 PM EST Office Visit [facility] [address] [place] [address] Dana Rucker, [facility] 15 [facility], [address] [place] [address] Nereyda Wong, PT [address] [place] [address] 03/09/2025 2:30 PM EST Office Visit [address] [address] Dana Rucker, [facility] 15 [facility], [address] [place] [address] Nereyda Wong, PT [address] [place] [address] 03/16/2025 2:30 PM EST Office Visit [address] [address] Dana Rucker, [facility] [address] [address] Nereyda Wong, PT [address] [place] [address] 06/03/2025 2:00 PM EST Office Visit [facility] Medical [facility] [address] [place] [address] [place] [address] Keren Poon, [address] [address] [email or web address] documented as of this encounter Visit Diagnoses Diagnosis Lower abdominal pain- Primary Abdominal pain, other specified site Diarrhea, unspecified type Bloating Flatulence, eructation, and gas pain Change in bowel habits Other symptoms involving digestive system documented in this encounter Additional Health Concerns Infection Onset Date Last Indicated Resolved Time C. diff 04/10/2024 05/07/202406/0606/06/2024 1:21 AM EST CoV-Risk 07/10/2024 07/10/2024 07/21/2024 1:21 AM EDT CDiff-Risk 07/10/2024 07/10/2024 07/10/2024 10:2 9 AM EDT C. diff 07/10/2024 07/10/2024 08/09/2024 1:22 AM EDT CDiff-Risk 07/10/2024 07/10/2024 07/10/2024 11:0 0 AM EDT Assessment Noted Time PHQ-9 Depression Total Score: 5 05/09/19 6:55 AM EST PHQ-2 Depression Total Score: 2 05/09/19 6:55 AM EST documented as of this encounter Care Teams Machine Tool Designer Relationship Specialty Start Date End Date Cleve Kerenrex Glaser, ORI [address] [place] [address], [address] [place] [address] [email or web address] PCP - General Family Medicine 01/31/23 Cash Fernandes MD [address] [place] [address] [email or web address] Gastroenterology 08/23/20 Chavo Jack MD [address] [place] [address] [email or web address] Insurance Assigned Provider 08/03/23 05/04/24 Willi Wells MD [address] [facility] [place] [address] Rheumatology 02/04/24 Jose Thakur MD [address] [place] [address] [email or web address] Portable Trackman Pulmonary Disease 03/17/24 Dana Rucker FNP 15 [facility], 2nd [place] [address] Nurse Practitioner Infectious Diseases 05/21/24 [place] [address] [place] [address], [address] [place] [address] Urology 05/14/23 Anival Borja MD [address] [place] [address], [address] [place] [address] Neurologist Neurology 01/04/23 Lyndsay Reynoso FNP [address] [place] [address] Nurse Practitioner Pain Medicine 05/27/22 Gutierrez Pittmna MD [address] [place] [address] Surgical Services Assistant Cardiology 05/27/24 documented as of this encounter Additional Source Comments The information contained in this document represents components of the legal health record. It is not the complete legal health record.[facility]
--- OUTSIDE RECORDS SUMMARY | 2024-12-22 16:43 | XMS_ITS | Encounter Summary ---
Author Organization [facility] Address [address] [place] [address] Care Team Providers Care Orthoptist Name Role Phone Charly Saxena Primary Care Provider [phone] Cheryl Calderon MD Primary Care Provider [phone] Reason for Visit * Reason Comments F/u From OV Post injection f/u Encounter Details Date Type Department Care Team (Late st Contact Info) Description 10/24/2015 Telephone [facility] Rheumatology [address] [place] [address] Abel Fierro MD [address] [place] [address] F/u From OV (Post injection f/u ) [...] on filedocumented in this encounter Care Teams Orthoptist Relationship Specialty Start Date End Date Charly Saxena [facility] [address] [place] [address] PCP - General Internal Medicine 05/25/13 07/16/17 Cheryl Calderon MD Count Includes [facility] Medicine [address] [place] [address] PCP - General Internal Medicine 07/17/17 documented as of this encounter
--- OUTSIDE RECORDS SUMMARY | 2024-12-22 16:43 | XMS_ITS | Encounter Summary ---
Author Organization [facility] Address [address] [place] [address] Care Team Providers Care Food Service Sales Representatives Name Role Phone Charly Saxena Primary Care Provider [phone] Cheryl Calderon MD Primary Care Provider [phone] Encounter Details Date Type Department Care Team (Late st Contact Info) Description 07/06/2015 Orders Only [facility] Rheumatology [address] [place] [address] Abel Fierro MD [address] [place] [address] Social History Tobacco Use Types Packs/Day Years [...] - 0.99 mg/dL [facility] Comment: {CREATININE {[id number]) For patients >49 years of age, the reference limit for Creatinine is approximately 13% higher for people identified as -Wallisian. GFR 69 > OR = 60 mL/min/1. 73m2 [facility] Comment:{eGFR NON-AFR. AMERI CAN {[id number]) GFR () 81 > OR = 60 mL/min/1. 73m2 [facility] Comment:{eGFR AMERIC AN {[id number]) 07/06/2015 1:10 PM EST 07/07/2015 12:26 AM [...] needs for GFR calculation. Resulting Agency Comment [id number] us Abel Fierro MD LAB SAME DAY RESULT Final Resul t Performing Organization Address [facility] [address]/[facility] Co de Phone Number [facility] [address] [place] [address] * (ABNORMAL) ALANINE AMINOTRANSFERASE (ALT), SERUM (07/06/2015 1:10 PM EST) ALT (SGPT) 35(H) 6 - 29 U/L [facility] Comment:{ALT {[id number]) 07/06/2015 1:10 PM EST 07/07/2015 12:26 AM EST Narrative Resulting Agency Comment [id number] Abel Fierro MD LAB SAME DAY RESULT Final Resul t Performing Organization Address [facility] [address]/[facility] de Phone Number [facility] [address] [place] [address] * ASPARTATE AMINOTRANSFERASE (AST), SERUM (07/06/2015 1:10 PM EST) AST (SGOT) 24 10 - 35 U/L [facility] Comment:{AST {[id number]) 07/06/2015 1:10 PM EST 07/07/2015 12:26 AM EST Narrative Resulting Agency Comment [id number] Abel Fierro MD LAB SAME DAY RESULT Final Resul t Performing Organization Address [facility] [address]/[facility] de Phone Number [facility] [address] [place] [address] * (ABNORMAL) CBC INCLUDES DIFFERENTIAL AND PLATELET COUNT (07/06/2015 1:10 PM EST) WBC 9.5 3.8 - 10.8 Thousand/ uL [facility] Comment:{WHITE BLOOD CELL CO UNT {[id number]) RBC 5.89(H) 3.80 - 5.10 Million/u L [facility] Comment:{RED BLOOD CELL COUN T {[id number]) Hemoglobin 15.7(H) 11.7 - 15.5 g/dL [facility] Comment:{HEMOGLOBIN {[id number]) Hematocrit 48.6(H) 35.0 - 45.0 % [facility] Comment:{HEMATOCRIT {[id number]) MCV 82.5 80.0 - 100.0 fL [facility] Comment:{MCV {[id number]) MCH 26.7(L) 27.0 - 33.0 pg [facility] Comment:{MCH {[id number]) MCHC 32.3 32.0 - 36.0 g/dL [facility] Comment:{MCHC {[id number]) RDW 15.9(H) 11.0 - 15.0 % [facility] Comment:{RDW {[id number]) PLT 356 140 - 400 Thousand/ uL [facility] Comment:{PLATELET COUNT {[id number]) MPV 7.5 7.5 - 11.5 fL [facility] Comment:{MPV {[id number]) Neutrophils # 7999(H) 1500 - 7800 cells/uL [facility] Comment:{ABSOLUTE NEUTROPHIL S {[id number]) Lymphocytes # 979 850 - 3900 cells/uL [facility] Comment:{ABSOLUTE LYMPHOCYTE S {[id number]) Monocytes # 428 200 - 950 cells/uL [facility] Comment:{ABSOLUTE MONOCYTES {[id number]) Eosinophils # 48 15 - 500 cells/uL [facility] Comment:{ABSOLUTE EOSINOPHIL S {[id number]) Basophils # 48 0 - 200 cells/uL [facility] Comment:{ABSOLUTE BASOPHILS {[id number]) Neutrophils % 84.2 % [facility] Comment:{NEUTROPHILS {[id number]) Lymphocytes % 10.3 % [facility] Comment:{LYMPHOCYTES {[id number]) Monocytes % 4.5 % [facility] Comment:{MONOCYTES {[id number]) Eosinophils % 0.5 % [facility] Comment:{EOSINOPHILS {[id number]) Basophils % 0.5 % [facility] Comment:{BASOPHILS {[id number]) 07/06/2015 1:10 PM EST 07/07/2015 12:26 AM EST Narrative Resulting Agency Comment [id number] us Abel Fierro MD LAB SAME DAY RESULT Final Resul t [facility] [address] [place] [address] documented in this encounter Visit Diagnoses Diagnosis Rheumatoid arthritis involving both feet, unspecified rheumatoid factor presence (HCC) [M06.071, M06.072] documented in this encounter Care Teams Food Service Sales Representatives Relationship Specialty Start Date End Date Charly Saxena [facility] [address] [place] [address] PCP - General Internal Medicine 05/25/13 07/16/17 Cheryl Calderon MD Pending Sale To [facility] [address] [place] [address] PCP - General Internal Medicine 07/17/17 documented as of this encounter
--- OUTSIDE RECORDS SUMMARY | 2024-12-22 16:43 | XMS_ITS | Encounter Summary ---
Author Organization [facility] Address [address] [place] [address] Care Team Providers Care Software Developer Name Role Phone Alberto Pacheco Primary Care Provider [phone] Charly Saxena Primary Care Provider [phone] Cheryl Calderon MD Primary Care Provider [phone] Encounter Details Date Type Department Care Team (Late st Contact Info) Description 10/28/2012 Orders Only [facility] Rheumatology [address] [place] [address] Abel Fierro MD [address] [place] [address] Social History Tobacco Use Types Packs/Day Years [...] - 1.05 mg/dL [facility] Comment: {CREATININE {[id number]) For patients >49 years of age, the reference limit for Creatinine is approximately 13% higher for people identified as -Citizen Of [place]. GFR 91 > OR = 60 mL/min/1. 73m2 [facility] Comment:{eGFR NON-AFR. AMERI CAN {[id number]) GFR () 106 > OR = 60 mL/min/1. 73m2 [facility] Comment:{eGFR AMERIC AN {[id number]) 10/28/2012 2:15 PM EDT 10/28/2012 11:59 PM [...] needs for GFR calculation. Resulting Agency Comment [id number] us Abel Fierro MD LAB SAME DAY RESULT Final Resul t [facility] [address] [place] [address] * ALANINE AMINOTRANSFERASE (ALT), SERUM (10/28/2012 2:15 PM EDT) ALT (SGPT) 21 6 - 29 U/L [facility] Comment:{ALT {[id number]) 10/28/2012 2:15 PM EDT 10/28/2012 11:59 PM EDT Narrative Resulting Agency Comment [id number] Abel Fierro MD LAB SAME DAY RESULT Final Resul t Performing Organization Address City/[facility]/ZIP Co de Phone Number [facility] [address] [place] [address] * ASPARTATE AMINOTRANSFERASE (AST), SERUM (10/28/2012 2:15 PM EDT) Pathologist [facility] AST (SGOT) 19 10 - 35 U/L [facility] Comment:{AST {[id number]) 10/28/2012 2:15 PM EDT 10/28/2012 11:59 PM EDT Narrative Resulting Agency Comment [id number] Abel Fierro MD LAB SAME DAY RESULT Final Resul t Performing Organization Address [facility] Co de Phone Number [facility] [address] [place] [address] * (ABNORMAL) CBC INCLUDES DIFFERENTIAL AND PLATELET COUNT (10/28/2012 2:15 PM EDT) Pathologist [facility] WBC 10.8 3.8 - 10.8 Thousand/ uL [facility] Comment:{WHITE BLOOD CELL CO UNT {[id number]) RBC 5.06 3.80 - 5.10 Million/u L [facility] Comment:{RED BLOOD CELL COUN T {[id number]) Hemoglobin 12.9 11.7 - 15.5 g/dL [facility] Comment:{HEMOGLOBIN {[id number]) Hematocrit 41.7 35.0 - 45.0 % [facility] Comment:{HEMATOCRIT {[id number]) MCV 82.5 80.0 - 100.0 fL [facility] Comment:{MCV {[id number]) MCH 25.5(L) 27.0 - 33.0 pg [facility] Comment:{MCH {[id number]) MCHC 31.0(L) 32.0 - 36.0 g/dL [facility] Comment:{MCHC {[id number]) RDW 14.6 11.0 - 15.0 % [facility] Comment:{RDW {[id number]) PLT 367 140 - 400 Thousand/ uL [facility] Comment:{PLATELET COUNT {[id number]) MPV 7.3(L) 7.5 - 11.5 fL [facility] Comment:{MPV {[id number]) Neutrophils # 5692 1500 - 7800 cells/uL [facility] Comment:{ABSOLUTE NEUTROPHIL S {[id number]) Lymphocytes # 3964(H) 850 - 3900 cells/uL [facility] Comment:{ABSOLUTE LYMPHOCYTE S {[id number]) Monocytes # 832 200 - 950 cells/uL [facility] Comment:{ABSOLUTE MONOCYTES {[id number]) Eosinophils # 248 15 - 500 cells/uL [facility] Comment:{ABSOLUTE EOSINOPHIL S {[id number]) Basophils # 65 0 - 200 cells/uL [facility] Comment:{ABSOLUTE BASOPHILS {[id number]) Neutrophils % 52.7 % [facility] Comment:{NEUTROPHILS {[id number]) Lymphocytes % 36.7 % [facility] Comment:{LYMPHOCYTES {[id number]) Monocytes % 7.7 % [facility] Comment:{MONOCYTES {[id number]) Eosinophils % 2.3 % [facility] Comment:{EOSINOPHILS {[id number]) Basophils % 0.6 % [facility] Comment:{BASOPHILS {[id number]) 10/28/2012 2:15 PM EDT 10/28/2012 11:59 PM EDT Narrative Resulting Agency Comment [id number] us Abel Fierro MD LAB SAME DAY RESULT Final Resul t [facility] [address] [place] [address] documented in this encounter Visit Diagnoses Diagnosis Rheumatoid arthritis(714.0) Rheumatoid arthritis documented in this encounter Care Teams Software Developer Relationship Specialty Start Date End Date Alberto Pacheco [address] [place] [address] PCP - General 07/19/08 05/24/13 Charly Saxena [facility] [address] [place] [address] PCP - General Internal Medicine 05/25/13 07/16/17 Cheryl Calderon MD [facility] Adult Medicine [address] [place] [address] PCP - General Internal Medicine 07/17/17 documented as of this encounter
--- OUTSIDE RECORDS SUMMARY | 2024-12-22 16:43 | XMS_ITS | Encounter Summary ---
Author Organization [facility] Address [address] [place] [address] Care Team Providers Care Light Rail Signal Technician Name Role Phone Charly Saxena Primary Care Provider [phone] Cheryl Calderon MD Primary Care Provider [phone] Encounter Details Date Type Department Care Team (Late st Contact Info) Description 02/10/2015 Orders Only [facility] Rheumatology [address] [place] [address] Abel Fierro MD [address] [place] [address] Social History Tobacco Use Types Packs/Day Years [...] EDT) C reactive protein 0.45 <0.80 mg/dL [facility] Comment: {C-REACTIVE PROTEIN {[id number]) Please be advised that patients taking Carboxypenicillins may exhibit falsely decreased C-Reactive Protein levels due to an analytical interference in this assay. 02/10/2015 12:2 9 PM EDT 02/10/2015 9:25 PM EDT Narrative Resulting Agency Comment [id number] us Abel Fierro MD LABORATORY Final Result Performing Organization Address [facility] Co de Phone Number [facility] [address] [place] [address] * ERYTHROCYTE SEDIMENTATION RATE (ESR), WESTERGREN (02/10/2015 12:29 PM EDT) Sedimentation Rate [place] (ESR) 6 < OR = 30 mm/h [facility] Comment:{SED RATE BY MODIFIE D WESTERGREN {[id number]) 02/10/2015 12:2 9 PM EDT 02/10/2015 9:25 PM EDT Narrative Resulting Agency Comment [id number] us Abel Fierro MD LAB SAME DAY RESULT Final Resul t Performing Organization Address [facility] de Phone Number [facility] [address] [place] [address] * CREATININE WITH GLOMERULAR FILTRATION RATE, ESTIMATED (EGFR) (02/10/2015 12:29 PM EDT) Creatinine 0.80 0.50 - 0.99 mg/dL [facility] Comment: {CREATININE {[id number]) For patients >49 years of age, the reference limit for Creatinine is approximately 13% higher for people identified as -[place]. GFR 80 > OR = 60 mL/min/1. 73m2 [facility] Comment:{eGFR NON-AFR. AMERI CAN {[id number]) GFR () 93 > OR = 60 mL/min/1. 73m2 [facility] Comment:{eGFR AMERIC AN {[id number]) 02/10/2015 12:2 9 PM EDT 02/10/2015 9:25 [...] needs for GFR calculation. Resulting Agency Comment [id number] Abel Fierro MD LAB SAME DAY RESULT Final Resul t Performing Organization Address [facility] de Phone Number [facility] [address] [place] [address] * (ABNORMAL) ALANINE AMINOTRANSFERASE (ALT), SERUM (02/10/2015 12:29 PM EDT) ALT (SGPT) 37(H) 6 - 29 U/L [facility] Comment:{ALT {[id number]) 02/10/2015 12:2 9 PM EDT 02/10/2015 9:25 PM EDT Narrative Resulting Agency Comment [id number] Abel Fierro MD LAB SAME DAY RESULT Final Resul t Performing Organization Address [facility] de Phone Number [facility] [address] [place] [address] * ASPARTATE AMINOTRANSFERASE (AST), SERUM (02/10/2015 12:29 PM EDT) AST (SGOT) 26 10 - 35 U/L [facility] Comment:{AST {[id number]) 02/10/2015 12:2 9 PM EDT 02/10/2015 9:25 PM EDT Narrative Resulting Agency Comment [id number] Abel Fierro MD LAB SAME DAY RESULT Final Resul t Performing Organization Address [facility] de Phone Number [facility] [address] [place] [address] * (ABNORMAL) CBC INCLUDES DIFFERENTIAL AND PLATELET COUNT (02/10/2015 12:29 PM EDT) WBC 10.5 3.8 - 10.8 Thousand/ uL [facility] Comment:{WHITE BLOOD CELL CO UNT {[id number]) RBC 6.07(H) 3.80 - 5.10 Million/u L [facility] Comment:{RED BLOOD CELL COUN T {[id number]) Hemoglobin 15.7(H) 11.7 - 15.5 g/dL [facility] Comment:{HEMOGLOBIN {[id number]) Hematocrit 48.6(H) 35.0 - 45.0 % [facility] Comment:{HEMATOCRIT {[id number]) MCV 80.1 80.0 - 100.0 fL [facility] Comment:{MCV {[id number]) MCH 25.8(L) 27.0 - 33.0 pg [facility] Comment:{MCH {[id number]) MCHC 32.2 32.0 - 36.0 g/dL [facility] Comment:{MCHC {[id number]) RDW 15.6(H) 11.0 - 15.0 % [facility] Comment:{RDW {[id number]) PLT 347 140 - 400 Thousand/ uL [facility] Comment:{PLATELET COUNT {[id number]) MPV 7.6 7.5 - 11.5 fL [facility] Comment:{MPV {[id number]) Neutrophils # 7455 1500 - 7800 cells/uL [facility] Comment:{ABSOLUTE NEUTROPHIL S {[id number]) Lymphocytes # 1932 850 - 3900 cells/uL [facility] Comment:{ABSOLUTE LYMPHOCYTE S {[id number]) Monocytes # 861 200 - 950 cells/uL [facility] Comment:{ABSOLUTE MONOCYTES {[id number]) Eosinophils # 221 15 - 500 cells/uL [facility] Comment:{ABSOLUTE EOSINOPHIL S {[id number]) Basophils # 32 0 - 200 cells/uL [facility] Comment:{ABSOLUTE BASOPHILS {[id number]) Neutrophils % 71.0 % [facility] Comment:{NEUTROPHILS {[id number]) Lymphocytes % 18.4 % [facility] Comment:{LYMPHOCYTES {[id number]) Monocytes % 8.2 % [facility] Comment:{MONOCYTES {[id number]) Eosinophils % 2.1 % [facility] Comment:{EOSINOPHILS {[id number]) Basophils % 0.3 % [facility] Comment:{BASOPHILS {[id number]) 02/10/2015 12:2 9 PM EDT 02/10/2015 9:25 PM EDT Narrative Resulting Agency Comment [id number] us Abel Fierro MD LAB SAME DAY RESULT Final Resul t [facility] [address] [place] [address] documented in this encounter Visit Diagnoses Diagnosis Rheumatoid arthritis involving both feet, unspecified rheumatoid factor presence (HCC) [M06.071, M06.072] documented in this encounter Care Teams Light Rail Signal Technician Relationship Specialty Start Date End Date Charly Saxena [facility] [address] [place] [address] PCP - General Internal Medicine 05/25/13 07/16/17 Cheryl Calderon MD [facility] Medicine [address] [place] [address] PCP - General Internal Medicine 07/17/17 documented as of this encounter
--- OUTSIDE RECORDS SUMMARY | 2024-12-22 16:43 | XMS_ITS | Encounter Summary ---
Author Organization [facility] Address [address] [place] [address] Care Team Providers Care Utilization Review Coordinator Name Role Phone Charly Saxena Primary Care Provider [phone] Cheryl Calderon MD Primary Care Provider [phone] Encounter Details Date Type Department Care Team (Late st Contact Info) Description 05/25/2013 Orders Only [facility] Rheumatology [address] [place] [address] Abel Fierro MD [address] [place] [address] Social History Tobacco Use Types Packs/Day Years [...] - 1.05 mg/dL [facility] Comment: {CREATININE {[id number]) For patients >49 years of age, the reference limit for Creatinine is approximately 13% higher for people identified as -[place]. GFR 70 > OR = 60 mL/min/1. 73m2 [facility] Comment:{eGFR NON-AFR. AMERI CAN {[id number]) GFR () 82 > OR = 60 mL/min/1. 73m2 [facility] Comment:{eGFR AMERIC AN {[id number]) 05/25/2013 2:20 PM EST 05/25/2013 6:51 PM [...] needs for GFR calculation. Resulting Agency Comment [id number] us Abel Fierro MD LAB SAME DAY RESULT Final Resul t [facility] [address] [place] [address] * (ABNORMAL) CBC INCLUDES DIFFERENTIAL AND PLATELET COUNT (05/25/2013 2:20 PM EST) WBC 14.5(H) 3.8 - 10.8 Thousand/ uL [facility] Comment:{WHITE BLOOD CELL CO UNT {[id number]) RBC 5.63(H) 3.80 - 5.10 Million/u L [facility] Comment:{RED BLOOD CELL COUN T {[id number]) Hemoglobin 14.6 11.7 - 15.5 g/dL [facility] Comment:{HEMOGLOBIN {[id number]) Hematocrit 46.7(H) 35.0 - 45.0 % [facility] Comment:{HEMATOCRIT {[id number]) MCV 82.8 80.0 - 100.0 fL [facility] Comment:{MCV {[id number]) MCH 26.0(L) 27.0 - 33.0 pg [facility] Comment:{MCH {[id number]) MCHC 31.4(L) 32.0 - 36.0 g/dL [facility] Comment:{MCHC {[id number]) RDW 15.0 11.0 - 15.0 % [facility] Comment:{RDW {[id number]) PLT 395 140 - 400 Thousand/ uL [facility] Comment:{PLATELET COUNT {[id number]) MPV 7.4(L) 7.5 - 11.5 fL [facility] Comment:{MPV {[id number]) Neutrophils # 60219(H) 1500 - 7800 cells/uL [facility] Comment:{ABSOLUTE NEUTROPHIL S {[id number]) Lymphocytes # 1291 850 - 3900 cells/uL [facility] Comment:{ABSOLUTE LYMPHOCYTE S {[id number]) Monocytes # 595 200 - 950 cells/uL [facility] Comment:{ABSOLUTE MONOCYTES {[id number]) Eosinophils # 102 15 - 500 cells/uL [facility] Comment:{ABSOLUTE EOSINOPHIL S {[id number]) Basophils # 29 0 - 200 cells/uL [facility] Comment:{ABSOLUTE BASOPHILS {[id number]) Neutrophils % 86.1 % [facility] Comment:{NEUTROPHILS {[id number]) Lymphocytes % 8.9 % [facility] Comment:{LYMPHOCYTES {[id number]) Monocytes % 4.1 % [facility] Comment:{MONOCYTES {[id number]) Eosinophils % 0.7 % [facility] Comment:{EOSINOPHILS {[id number]) Basophils % 0.2 % [facility] Comment:{BASOPHILS {[id number]) 05/25/2013 2:20 PM EST 05/25/2013 6:51 PM EST Narrative Resulting Agency Comment [id number] us Abel Fierro MD LAB SAME DAY RESULT Final Resul t Performing Organization Address City/[facility] Co de Phone Number [facility] [address] [place] [address] * ALANINE AMINOTRANSFERASE (ALT), SERUM (05/25/2013 2:20 PM EST) ALT (SGPT) 21 6 - 29 U/L [facility] Comment:{ALT {[id number]) 05/25/2013 2:20 PM EST 05/25/2013 6:51 PM EST Narrative Resulting Agency Comment [id number] us Abel Fierro MD LAB SAME DAY RESULT Final Resul t Performing Organization Address [facility] de Phone Number [facility] [address] [place] [address] * ASPARTATE AMINOTRANSFERASE (AST), SERUM (05/25/2013 2:20 PM EST) AST (SGOT) 21 10 - 35 U/L [facility] Comment:{AST {[id number]) 05/25/2013 2:20 PM EST 05/25/2013 6:51 PM EST Narrative Resulting Agency Comment [id number] Abel Fierro MD LAB SAME DAY RESULT Final Resul t Performing Organization Address [facility] de Phone Number [facility] [address] [place] [address] documented in this encounter Visit Diagnoses Diagnosis Rheumatoid arthritis(714.0) Rheumatoid arthritis documented in this encounter Care Teams Utilization Review Coordinator Relationship Specialty Start Date End Date Charly Saxena [facility] [address] [place] [address] PCP - General Internal Medicine 05/25/13 07/16/17 Cheryl Calderon MD [facility] Medicine [address] [place] [address] PCP - General Internal Medicine 07/17/17 documented as of this encounter
--- OUTSIDE RECORDS SUMMARY | 2024-12-22 16:44 | XMS_ITS | Encounter Summary ---
Author Organization [facility] Address [address] [place] [address] Phone Care Team Providers Care Operations Manager Name Role Phone Jessicaroxanne Ita Mccrackengh [facility] Primary Care Provider Cash Fernandes MD Unavailable [phone] Seven Menchaca MD Unavailable [phone] Chavo Jack MD Primary Care Provider Keren Poon [facility] Primary Care Provid er Chavo Jack MD Unavailable Willi Wells MD Unavailable Unavailable Jose Thakur MD Unavailable Dana Rucker REHAB TRAINER Unavailable [phone] Jonathan Alvarez MD Unavailable [phone] Anival Borja MD Unavailable Lyndsay Reynoso REHAB TRAINER Unavailable [phone] Gutierrez Pittman MD Unavailable [phone] Encounter Details Date Type Department Care Team (Late st Contact Info) Description 02/10/2021 Procedure Pass [facility], Ct Scan - [address] [address] Social History Tobacco Use Types Packs/Day Years [...] basis, and looking for work? No 09/26/2020 Comments Unknown Sex and Gender Information Value Date Recorded Sex Assigned at Female 08/18/2020 10:48 PM EDT Legal Sex Female 1:11 PM EDT Gender Identity Female 08/18/2020 10:48 PM EDT Sexual Orientation Straight 09/27/2020 4: 02 PM EDT documented as of this encounter Functional Status * Calculated C-SSRS Risk Score (Lifetime/Recent) Answer Date of Assessment Author No Risk Indicated 02/10/2021 1:41 PM EDT Postblayne , Waleska Mock RN * Venus Suicide Severity Rating Scale (Screener/Recent Self-Report) Question Answer Date of Assessment Author 1. Wish to be (Past 1 Month) No 02/10/2021 1:41 PM EDT Postblayne, Waleska irby RN 2. Non-Specific Active Suicidal Thoughts (Past 1 Month) No 02/10/2021 1:41 PM EDT Billy, Waleska irby RN 6. Suicidal Behavior (Lifetime) No 02/10/2021 1:41 PM EDT Billy, Waleska irby RN documented as of this encounter Plan of Treatment Upcoming Encounters Date Type Department Care Team (Late st Contact Info) Description 12/25/2024 2:30 PM EDT Office Visit [facility] Infectious Diseases [address] [place] [address] Dana Rucker, [facility] [address] [address] 01/01/2025 1:00 PM EDT Office Visit [facility] Rehabilitation Services [address] [place] [address] Dana Rucker [address] [address] Nereyda Wong, PT [address] [place] [address] 01/07/2025 2:30 PM EDT Office Visit [facility] Pulmonary, Allergy and Critical Care Medicine [address] [place] [address] Jose Thakur MD [address] [place] [address] 01/19/2025 2:30 PM EDT Office Visit [facility] [address] [place] [address] Dana Rucker FNP [address] [address] Nereyda Wong, PT [address] [place] [address] 01/26/2025 2:30 PM EDT Office Visit [facility] [address] [place] [address] Dana Rucker, [address] [address] Nereyda Wong, PT [address] [place] [address] 01/29/2025 3:00 PM EDT Office Visit [address] [place] [address] Keren Poon, MEAL ROOM HAND [address] [place] [address] 02/01/2025 3:00 PM EDT Office Visit [address] [place] [address] Keren Poon, MEAL ROOM HAND [address] [place] [address] 03/02/2025 2:30 PM EST Office Visit [facility] [address] [place] [address] Dana Rucker REHAB TRAINER [address] [address] Nereyda Wong, PT [address] [place] [address] 03/09/2025 2:30 PM EST Office Visit [facility] [address] [place] [address] Dana Ruckerley, [facility] [address] [address] Nereyda Wong, PT [address] [place] [address] 03/16/2025 2:30 PM EST Office Visit [address] [address] Dana Ruckerley, [facility] [address] [address] Nereyda Wong, PT [address] [place] [address] 06/03/2025 2:00 PM EST Office Visit [facility] [address] [place] [address] [place] [address] Keren Poon, MEAL ROOM HAND [address] [place] [address] documented as of this encounter Visit Diagnoses [...] documented as of this encounter Care Teams Operations Manager Relationship Specialty Start Date End Date Ita Pineda CNP [address] [place] [address] PCP - General Internal Medicine 08/19/20 09/17/22 Chavo Jack MD [address] [place] [address] PCP - General Internal Medicine 09/18/22 01/30/23 Keren Poon CNP [address] [place] [address], [address] [place] [address] PCP - General Family Medicine 01/31/23 Cash Fernandes MD [address] [place] [address] Gastroenterology 08/23/20 Seven Menchaca MD [address] [place] [address] [email or web address] Insurance Assigned Provider 08/04/22 08/03/23 Chavo Jack MD [address] [place] [address] Insurance Assigned Provider 08/03/23 05/04/24 Willi Wells MD [address] [place] [address] Rheumatology 02/04/24 Jose Thakur MD [address] [place] [address] [employer] Pulmonary Disease 03/17/24 Dana Rucker FNP [address], 2nd [place] [address] [email or web address] Nurse Practitioner Infectious Diseases 05/21/24 Jonathan Alvarez MD [address] [place] [address], [address] [place] [address] Urology 05/14/23 Anival Borja MD [address] [place] [address], [address] [place] [address] Neurologist Neurology 01/04/23 Lyndsay Reynoso FNP [address] [place] [address] Nurse Practitioner Pain Medicine 05/27/22 Gutierrez Pittman MD [address] [place] [address] Sausage Inspector Cardiology 05/27/24 documented as of this encounter Additional Source Comments The information contained in this document represents components of the legal health record. It is not the complete legal health record.[facility]
--- OUTSIDE RECORDS SUMMARY | 2024-12-22 16:44 | XMS_ITS | Encounter Summary ---
Author Organization [facility] Address [address] [place] [address] Phone Care Team Providers Care Civil Engineering Project Manager Name Role Phone Jessicaroxanne Ita Mccrackengh [facility] Primary Care Provider Cash Fernandes MD Unavailable [phone] Seven Menchaca MD Unavailable [phone] Chavo Jack MD Primary Care Provider Keren Poon [facility] Primary Care Provid er Chavo Jack MD Unavailable Willi Wells MD Unavailable Unavailable Jose Thakur MD Unavailable Dana Rucker RADIOLOGICAL TECHNICIAN Unavailable Jonathan Alvarez MD Unavailable [phone] Anival Borja MD Unavailable [phone] Lyndsay Reynoso RADIOLOGICAL TECHNICIAN Unavailable Gutierrez Pittman MD Unavailable [phone] Encounter Details Date Type Department Care Team (Late st Contact Info) Description 07/10/2021 Procedure Pass [facility] [address] [place] [address] Social History Tobacco Use Types Packs/Day Years [...] high school, GED, job training, learning the Occitan language, technical skills, or developing parenting skills)? [...] and looking for work? No 09/26/2020 Comments No Sex and Gender Information Value [...] Description 12/25/2024 2:30 PM EDT Office Visit [facility] Infectious Diseases 22 [place] [address] Dana Rucker FNP [address] [address] 01/01/2025 1:00 PM EDT Office Visit [address] [address] Dana Rucker FNP [address] [address] Nereyda Wong, PT 380 [place] [address] 01/07/2025 2:30 PM EDT Office Visit [facility] Pulmonary, Allergy and Critical Care Medicine 10 [place] [address] Jose Thakur MD 30 [place] [address] 01/19/2025 2:30 PM EDT Office Visit [address] [address] Dana Rucker, RADIOLOGICAL TECHNICIAN [address] [address] Nereyda Wong, PT 380 [place] [address] 01/26/2025 2:30 PM EDT Office Visit [address] [address] Dana Rucker FNP [address] [address] Nereyda Wong, PT 380 [place] [address] 01/29/2025 3:00 PM EDT Office Visit [address] [place] [address] Keren Poon, FISH SKINNING MACHINE FEEDER [address] [place] [address] 02/01/2025 3:00 PM EDT Office Visit [address] [place] [address] Keren Poon, FISH SKINNING MACHINE FEEDER [address] [place] [address] 03/02/2025 2:30 PM EST Office Visit [address] [address] Dana Rucker, [address] [address] Nereyda Wong, PT 380 [place] [address] 03/09/2025 2:30 PM EST Office Visit [facility] 380 [place] [address] Dana Rucker, [address] [address] Nereyda Wong, PT 380 [place] [address] 03/16/2025 2:30 PM EST Office Visit [facility] 380 [place] [address] Dana Rucker, RADIOLOGICAL TECHNICIAN 15 [facility], 2nd [place] [address] Nereyda Wong, PT 380 [place] [address] 06/03/2025 2:00 PM EST Office Visit [facility] [address] [place] [address] [place] [address] Keren Poon, FISH SKINNING MACHINE FEEDER 170 [facility], 2nd [place] [address] [email or web address] documented as of [...] documented as of this encounter Care Teams Civil Engineering Project Manager Relationship Specialty Start Date End Date Kandacesusi Ita ORI Nelson 40 [place] [address] [email or web address] PCP - General Internal Medicine 08/19/20 09/17/22 Chavo Jack MD 40 [place] [address] [email or web address] PCP - General Internal Medicine 09/18/22 01/30/23 Keren Poon CNP [address] [place] [address], 2nd [place] [address] [email or web address] PCP - General Family Medicine 01/31/23 Cash Fernandes MD [address] [place] [address] [email or web address] Gastroenterology 08/23/20 Seven Menchaca MD [address] [place] [address] [email or web address] Insurance Assigned Provider 08/04/22 08/03/23 Chavo Jack MD 40 [place] [address] [email or web address] Insurance Assigned Provider 08/03/23 05/04/24 Willi Wells MD [address] [place] [address] [place] [address] Rheumatology 02/04/24 Jsoe Thakur MD 30 [place] [address] Night Coordinator Pulmonary Disease 03/17/24 Dana Rucker FNP 15 [facility], 2nd [place] [address] Nurse Practitioner Infectious Diseases 05/21/24 Jonathan Alvarez MD [address] [place] [address], [address] [place] [address] Urology 05/14/23 Anival Borja MD [address] [place] [address], [address] [place] [address] Neurologist Neurology 01/04/23 Lyndsay Reynoso FNP [address] [place] [address] Nurse Practitioner Pain Medicine 05/27/22 Gutierrez Pittman MD 40 [place] [address] Loan And Credit Manager Cardiology 05/27/24 documented as of this encounter Additional Source Comments The information contained in this document represents components of the legal health record. It is not the complete legal health record.[facility]
--- OUTSIDE RECORDS SUMMARY | 2024-12-22 16:44 | XMS_ITS | Encounter Summary ---
Author Organization [facility] Address [address] [place] [address] Phone Care Team Providers Care Wet Crown Blocking Operator Name Role Phone Cash Fernandes MD Unavailable [phone] Seven Menchaca MD Unavailable Chavo Jack MD Primary Care Provider Keren Poon [facility] Primary Care Provid er Chavo Jack MD Unavailable Willi Wells MD Unavailable Unavailable Jose Thakur MD Unavailable Dana Rucker MICA MINER BLASTING Unavailable [phone] Jonathan Alvarez MD Unavailable [phone] Anival Borja MD Unavailable Lyndsay Reynoso MICA MINER BLASTING Unavailable [phone] Gutierrez Pittman MD Unavailable [phone] Reason for Referral * MRI/CAT Scan - Closed Specialty Diagnoses / Procedures Referred By Cayden montoya Referred To Contact Radiology Diagnoses Memory loss Procedures MRI Brain Anival Borja MD Phone: tel: fax: [email or web address] Referral ID Status Reason Start Date Expiration Date Visits Re quested Visits Authorized [id number] Closed 10/04/2022 1 1 Encounter Details Date Type Department Care Team (Latest Contact Info) Description 10/04/2022 Transcribe Orders Virtual Department 30 [place] [address] Anival Borja MD [address] [place] [address], [address] [place], [place] [id number] [email or web address] Memory loss (Primary Dx) Social [...] Description 12/25/2024 2:30 PM EDT Office Visit [facility] Infectious Diseases 22 [place] [address] Dana Rucker FNP [address] [place] [address] 01/01/2025 1:00 PM EDT Office Visit [facility] 380 [place] [address] Dana Rucker FNP [address] [address] Nereyda Wong, PT 380 [place] [address] 01/07/2025 2:30 PM EDT Office Visit [facility] Pulmonary, Allergy and Critical Care Medicine 10 [facility] [place] [address] Jose Thakur MD 30 [place] [address] 01/19/2025 2:30 PM EDT Office Visit [facility] 380 [place] [address] Dana Rucker, DIVYA 15 [facility], [address] [place] [address] Nereyda Wong, PT 380 [place] [address] 01/26/2025 2:30 PM EDT Office Visit [address] [address] Dana Rucker, MICA MINER BLASTING 15 [facility], [address] [place] [address] Nereyda Wong, PT 380 [place] [address] 01/29/2025 3:00 PM EDT Office Visit [address] [place] [address] Keren Poon, SPEECH LANGUAGE PATHOLOGIST [address] [place] [address] 02/01/2025 3:00 PM EDT Office Visit [address] [place] [address] Keren Poon, SPEECH LANGUAGE PATHOLOGIST [address] [place] [address] 03/02/2025 2:30 PM EST Office Visit [facility] 380 [place] [address] Dana Rucker [facility] [address] [address] Nereyda Wong, PT 380 [place] [address] 03/09/2025 2:30 PM EST Office Visit [address] [address] Dana Rucker, [address] [address] Nereyda Wong, PT 380 [place] [address] 03/16/2025 2:30 PM EST Office Visit [address] [address] Dana Rucker, [address] [address] [email or web address] Nereyda Wong, PT 380 [place] [address] 06/03/2025 2:00 PM EST Office Visit [facility] [address] [place] [address] [place] [address] Keren Poon, SPEECH LANGUAGE PATHOLOGIST [address] [place] [address] [email or web address] documented as of this encounter [...] a venous or arterial branch. Procedure Note Ivná Lindsey MD - 11/12/2022 MRI BRAIN WITHOUT [...] described. Anival Borja MD IMG MR HEAD/NECK Final Resul t documented in this encounter Visit Diagnoses Diagnosis [...] documented as of this encounter Care Teams Wet Crown Blocking Operator Relationship Specialty Start Date End Date Chavo Jack MD 40 [place] [address] PCP - General Internal Medicine 09/18/22 01/30/23 Keren Poon CNP [address] [place] [address], 2nd [place] [address] [email or web address] PCP - General Family Medicine 01/31/23 Cash Fernandes MD [address] [place] [address] Gastroenterology 08/23/20 Seven Menchaca MD [address] [place] [address] Insurance Assigned Provider 08/04/22 08/03/23 Chavo Jack MD 40 [place] [address] Insurance Assigned Provider 08/03/23 05/04/24 Willi Wells MD [address] [place] [address] [place] [address] Rheumatology 02/04/24 Jose Thakur MD [address] [place] [address] Pharmacist'S Aide Pulmonary Disease 03/17/24 Dana Rucker FNP 15 [facility], 2nd [place] [address] Nurse Practitioner Infectious Diseases 05/21/24 Jonathan Alvarez MD [address] [place] [address], [address] [place] [address] Urology 05/14/23 Anival Borja MD [address] [place] [address], [address] [place] [address] Neurologist Neurology 01/04/23 Lyndsay Reynoso FNP [address] [place] [address] Nurse Practitioner Pain Medicine 05/27/22 Gutierrez Pittman MD 40 [place] [address] Personnel Security Assistant Cardiology 05/27/24 documented as of this encounter Additional Source Comments The information contained in this document represents components of the legal health record. It is not the complete legal health record.[facility]
--- OUTSIDE RECORDS SUMMARY | 2024-12-22 16:44 | XMS_ITS | Encounter Summary ---
Author Organization [facility] Address [address] [place] [address] Care Team Providers Care Shampoo Technician Name Role Phone Charly Saxena Primary Care Provider [phone] Cheryl Calderon MD Primary Care Provider [phone] Encounter Details Date Type Department Care Team (Late st Contact Info) Description 02/14/2017 Orders Only [facility] Rheumatology [address] [place] [address] Abel Fierro MD 5 [place] [address] Social History Tobacco Use Types Packs/Day Years [...] 9:13 PM EDT Narrative Resulting Agency Comment [id number] us Abel Fierro MD LAB SAME DAY RESULT Final Resul t Performing Organization Address [facility] Co de Phone Number [facility] [address] [place] [address] * ASPARTATE AMINOTRANSFERASE (AST), SERUM (02/14/2017 2:31 PM EDT) AST (SGOT) 27 10 - 35 U/L [facility] 02/14/2017 2:31 PM EDT 02/14/2017 9:13 PM EDT Narrative Resulting Agency Comment [id number] Abel Fierro MD LAB SAME DAY RESULT Final Resul t Performing Organization Address [facility] de Phone Number [facility] [address] [place] [address] * CREATININE WITH GLOMERULAR FILTRATION RATE, ESTIMATED (EGFR) (02/14/2017 2:31 PM EDT) Creatinine 0.80 0.50 - 0.99 mg/dL [facility] Comment: For patients >49 years of age, the reference limit for Creatinine is approximately 13% higher for people identified as -Russian. GFR 79 > OR = 60 mL/min/1. [...] needs for GFR calculation. Resulting Agency Comment [id number] us Abel Fierro MD LAB SAME DAY RESULT Final Resul t [facility] [address] [place] [address] * (ABNORMAL) CBC INCLUDES DIFFERENTIAL AND PLATELET [...] 9:13 PM EDT Narrative Resulting Agency Comment [id number] us Abel Fierro MD LAB SAME DAY RESULT Final Resul t [facility] [address] [place] [address] documented in this encounter Visit Diagnoses Diagnosis Rheumatoid arthritis involving multiple sites with positive rheumatoid factor (HCC) documented in this encounter Care Teams Shampoo Technician Relationship Specialty Start Date End Date Charly Saxena [facility] [address] [place] [address] PCP - General Internal Medicine 05/25/13 07/16/17 Cheryl Calderon MD [facility] Adult Medicine [address] [place] [address] PCP - General Internal Medicine 07/17/17 documented as of this encounter
--- OUTSIDE RECORDS SUMMARY | 2024-12-22 16:44 | XMS_ITS | Encounter Summary ---
Author Organization [facility] Address [address] [place] [address] Phone Care Team Providers Care Physicians And Surgeons Name Role Phone Jessicaroxanne Ita Mccrackengh [facility] Primary Care Provider Cash Fernandes MD Unavailable [phone] Seven Menchaca MD Unavailable [phone] Chavo Jack MD Primary Care Provider Keren Poon [facility] Primary Care Provid er Chavo Jack MD Unavailable Willi Wells MD Unavailable Unavailable Jose Thakur MD Unavailable [phone] Dana Rucker AUDITING CODER Unavailable Jonathan Alvarez MD Unavailable [phone] Anival Borja MD Unavailable [phone] Lyndsay Reynoso AUDITING CODER Unavailable Gutierrez Pittman MD Unavailable [phone] Encounter Details Date Type Department Care Team (Late st Contact Info) Description 04/10/2021 Procedure Pass [facility] Endoscopy Admitting Dept Virtual Department 30 [place] [address] Social History Tobacco Use Types Packs/Day Years [...] high school, GED, job training, learning the Spanish language, technical skills, or developing parenting skills)? [...] Description 12/25/2024 2:30 PM EDT Office Visit [facility] Infectious Diseases 22 [place] [address] Dana Rucker, DIVYA [address] [address] 01/01/2025 1:00 PM EDT Office Visit [address] [address] Dana Rucker FNP [address] [address] Nereyda Wong, PT 380 [place] [address] 01/07/2025 2:30 PM EDT Office Visit [facility] Pulmonary, Allergy and Critical Care Medicine 10 [place] [address] Jose Thakur MD 30 [place] [address] 01/19/2025 2:30 PM EDT Office Visit [address] [address] Dana Rucker, AUDITING CODER [address] [address] Nereyda Wong, PT 380 [place] [address] 01/26/2025 2:30 PM EDT Office Visit [address] [address] [place], Dana Leslee, [address] [address] Nereyda Wong, PT 380 [place] [address] 01/29/2025 3:00 PM EDT Office Visit [address] [place] [address] Keren Poon, BLOCKER AUTOMATIC [address] [place] [address] 02/01/2025 3:00 PM EDT Office Visit [address] [place] [address] Keren Poon, BLOCKER AUTOMATIC [address] [place] [address] 03/02/2025 2:30 PM EST Office Visit [address] [address] Dana Rucker, [address] [address] Nereyda Wong, PT 380 [place] [address] 03/09/2025 2:30 PM EST Office Visit [address] [address] Dana Rucker, [address] [address] Nereyda Wong, PT 380 [place] [address] 03/16/2025 2:30 PM EST Office Visit [facility] Rehabilitation Services 380 [place] [address] Dana Rucker, AUDITING CODER 15 [facility], 2nd [place] [address] Nereyda Wong, PT 380 [place] [address] 06/03/2025 2:00 PM EST Office Visit [facility] [address] [place] [address] Keren Poon, ORI 170 [facility], 2[address] [place] [address] documented as of this encounter Visit Diagnoses [...] documented as of this encounter Care Teams Physicians And Surgeons Relationship Specialty Start Date End Date JessicaIta oliveiraORI 40 [place] [address] [email or web address] PCP - General Internal Medicine 08/19/20 09/17/22 Chavo Jack MD 40 [place] [address] [email or web address] PCP - General Internal Medicine 09/18/22 01/30/23 Keren Poon CNP [address] [place] [address], 2nd [place] [address] [email or web address] PCP - General Family Medicine 01/31/23 Cash Fernandes MD [address] [place] [address] [email or web address] Gastroenterology 08/23/20 Seven Menchaca MD 40 [place] [address] Insurance Assigned Provider 08/04/22 08/03/23 Chavo Jack MD 40 [place] [address] Insurance Assigned Provider 08/03/23 05/04/24 Willi Wells MD [address] [place] [address] Internal [facility] BRAYDEN Mock [address] Rheumatology 02/04/24 Jose Thakur MD 30 [place] [address] Surfacer Operator Pulmonary Disease 03/17/24 Dana Rucker FNP 15 [facility], 2nd [place] [address] Nurse Practitioner Infectious Diseases 05/21/24 Jonathan Alvarez MD [address] [place] [address], [address] [place] [address] Urology 05/14/23 Anival Borja MD [address] [place] [address], [address] [place] [address] Neurologist Neurology 01/04/23 Lyndsay Reynoso FNP [address] [place] [address] Nurse Practitioner Pain Medicine 05/27/22 Gutierrez Pittman MD 40 [place] [address] Molding Machine Setter Cardiology 05/27/24 documented as of this encounter Additional Source Comments The information contained in this document represents components of the legal health record. It is not the complete legal health record.[facility]
--- OUTSIDE RECORDS SUMMARY | 2024-12-22 16:44 | XMS_ITS | Encounter Summary ---
Author Organization [facility] Address [address] [place] [address] Phone Care Team Providers Care Sample Hand Name Role Phone Patrick Sanchez MD Unavailable [phone] Keren Mabry MD Unavailable [phone] Louisa Hogan MD Unavailable [phone] Charly Saxena DO Unavailable [phone] Abhinav Muhammad MD Unavailable [phone] Cheryl Giraldo NP Unavailable Wilfrido Steel MD Unavailable [phone] Sharon MartinC Unavailable Ita Pineda [facility] Primary Care Provider Cash Fernandes MD Unavailable [phone] Seven Menchaca MD Unavailable Chavo Jack MD Primary Care Provider [phone] Keren Poon [facility] Primary Care Provid er Chavo Jack MD Unavailable Willi Wells MD Unavailable Unavailable Jose Thakur MD Unavailable Dana Rucker ANIMAL HUSBANDRY TECHNICIAN Unavailable Jonathan Alvarez MD Unavailable [phone] Anival Borja MD Unavailable Lyndsay Reynoso ANIMAL HUSBANDRY TECHNICIAN Unavailable [phone] Gutierrez Pittman MD Unavailable [phone] Encounter Details Date Type Department Care Team (Late st Contact Info) Description 08/19/2020 Procedure Pass [facility] Endoscopy Admitting Dept Virtual Department [address] [place] [address] Social History Tobacco Use Types Packs/Day Years [...] Description 12/25/2024 2:30 PM EDT Office Visit [facility] Infectious Diseases [address] [place] [address] Dana Rucker FNP [address] [address] 01/01/2025 1:00 PM EDT Office Visit [facility] [address] [place] [address] Dana Rucker FNP [address] [address] Nereyda Wong, PT [address] [place] [address] 01/07/2025 2:30 PM EDT Office Visit [facility] Pulmonary, Allergy and Critical Care Medicine 10 [facility] [place] [address] Jose Thakur MD 30 [place] [address] 01/19/2025 2:30 PM EDT Office Visit [facility] [address] [place] [address] Chaim Dana Leslee, [facility] [address] [address] Nereyda Wong, PT [address] [place] [address] 01/26/2025 2:30 PM EDT Office Visit [facility] [address] [place] [address] Dana Rucker, [facility] [address] [address] Nereyda Wong, PT [address] [place] [address] 01/29/2025 3:00 PM EDT Office Visit [address] [place] [address] Keren Poon, [facility] 170 [facility], [address] [place] [address] 02/01/2025 3:00 PM EDT Office Visit [address] [place] [address] Keren Poon, [facility] [address] [address] 03/02/2025 2:30 PM EST Office Visit [facility] [address] [place] [address] Dana Rucker, [facility] [address] [address] Nereyda Wong, PT [address] [place] [address] 03/09/2025 2:30 PM EST Office Visit [facility] [address] [place] [address] Dana Rucker, [facility] [address] [address] Nereyda Wong, PT [address] [place] [address] 03/16/2025 2:30 PM EST Office Visit [facility] [address] [place] [address] Dana Rucker, [address] [address] Nereyda Wong, PT [address] [place] [address] 06/03/2025 2:00 PM EST Office Visit [facility] [address] [place] [address] [place] [address] Keren Poon, [facility] [address] [address] [email or web address] documented as of this [...] documented as of this encounter Care Teams Sample Hand Relationship Specialty Start Date End Date Ita Pineda CNP [address] [place] [address] [email or web address] PCP - General Internal Medicine 08/19/20 09/17/22 Chavo Jack MD [address] [place] [address] [email or web address] PCP - General Internal Medicine 09/18/22 01/30/23 Keren Poon CNP [address] [place] [address], 2nd [place] [address] [email or web address] PCP - General Family Medicine 01/31/23 Patrick Sanchez MD [address] [place] [address] Department [place] [address] [email or web address] Historical LMR Provider 09/10/14 Keren Mabry MD [address] [place] [address] Historical LMR Provider 07/10/18 Louisa Hogan MD [address] [place] [address] [email or web address] Historical LMR Provider 07/10/1807/29 Charly aSxena DO 1280 [facility] 301 [place] [address] [email or web address] Historical LMR Provider 07/10/18 08/22/20 Abhinav Muhammad MD [address] [place] [address] [address] [place] [address] [email or web address] Historical LMR Provider 07/10/18 08/22/20 Cheryl Giraldo NP [address] [place] [address] [email or web address] Historical LMR Provider 07/10/18 08/22/20 Wilfrido Steel MD [address] [place] [address] [email or web address] Historical LMR Provider 07/10/18 08/22/20 Sharon Martin PA-C 115 [facility]. [address] [place] [address] [email or web address] Historical LMR Provider 07/10/18 08/22/20 Cash Fernandes MD [address] [address] [email or web address] Gastroenterology 08/23/20 Seven Menchaca MD [address] [place] [address] [email or web address] Insurance Assigned Provider 08/04/22 08/03/23 Chavo Jack MD [address] [place] [address] [email or web address] Insurance Assigned Provider 08/03/23 05/04/24 Willi Wells MD [address] [facility] [place] [address] Rheumatology 02/04/24 Jose Thakur MD [address] [place] [address] [email or web address] Crematory Operator Pulmonary Disease 03/17/24 Dana Rucker FNP 15 [facility], 2nd [place] [address] [email or web address] Nurse Practitioner Infectious Diseases 05/21/24 Jonathan Alvarez MD [address] [place] [address], [address] [place] [address] [email or web address] Urology 05/14/23 Anival Borja MD [address] [place] [address], [address] [place] [address] [email or web address] Neurologist Neurology 01/04/23 Lyndsay Reynoso FNP [address] [place] [address] Nurse Practitioner Pain Medicine 05/27/22 Gutierrez Pittman MD [address] [place] [phone] Tool And Cutter Grinder Cardiology 05/27/24 documented as of this encounter Additional Source Comments The information contained in this document represents components of the legal health record. It is not the complete legal health record.[facility]
--- OUTSIDE RECORDS SUMMARY | 2024-12-22 16:44 | XMS_ITS | Encounter Summary ---
Author Organization [facility] Address [address] [place] [address] Care Team Providers Care R D Engineer Name Role Phone Cheryl Calderon MD Primary Care Provider [phone] Encounter Details Date Type Department Care Team (Late st Contact Info) Description 12/23/2018 Orders Only [facility] Hematology/Oncology 1 [facility] [address] [place] [phone] Liliana Calderon, JULI [address] [place] [address] Social History Tobacco Use Types Packs/Day Years [...] a test for HCV RNA (test code 38926) is suggested. For additional information please refer to http://education.[employer]/faq/NGU18r9 (This link is being provided for informational/ educational purposes only.) 12/23/2018 11:3 2 AM EDT 12/23/2018 11:23 PM EDT Narrative Resulting Agency Comment [id number] Liliana Calderon NP LABORATORY Final Result [facility] [address] [place] [address] * HEPATITIS B CORE ANTIBODY, TOTAL, SERUM (12/23/2018 11:32 AM EDT) Hepatitis B virus core Ab NON-REACTI VE NON-REACT MANOLO [facility] 12/23/2018 11:3 2 AM EDT 12/23/2018 11:23 PM EDT Narrative Resulting Agency Comment [id number] Liliana Nehemiasunder BONDACTOR MACHINE OPERATOR LABORATORY Final Result Performing Organization Address [facility] Co de Phone Number [facility] [address] [place] [address] * HEPATITIS B SURFACE ANTIGEN (12/23/2018 11:32 AM EDT) Hepatitis B virus surface Ag NON-REACTI VE NON-REACT MANOLO [facility] 12/23/2018 11:3 2 AM EDT 12/23/2018 11:23 PM EDT Narrative Resulting Agency Comment [id number] Liliana Nehemiasunder BONDACTOR MACHINE OPERATOR LABORATORY Final Result Performing Organization Address [facility] de Phone Number [facility] [address] [place] [address] * (ABNORMAL) HEPATIC FUNCTION PANEL (ALT,AST,ALK PH,BILI'S,TP,ALB) (12/23/2018 11:32 AM EDT) Pathologist [facility] Protein Total (Serum) 5.8(L) 6.1 - 8.1 [...] 11:23 PM EDT Narrative Resulting Agency Comment [id number] Liliana Nehemiasunder BONDACTOR MACHINE OPERATOR LABORATORY Final Result Performing Organization Address [facility] Co de Phone Number [facility] [address] [place] [address] * CBC INCLUDES DIFFERENTIAL AND PLATELET COUNT [...] 11:23 PM EDT Narrative Resulting Agency Comment [id number] Liliana Calderon BONDACTOR MACHINE OPERATOR LAB SAME DAY RESULT Final Result Performing Organization Address City/State/[facility] Co de Phone Number [facility] [address] [place] [address] documented in this encounter Visit Diagnoses Diagnosis Rheumatoid arthritis involving multiple sites with positive rheumatoid factor (HCC) documented in this encounter Care Teams R D Engineer Relationship Specialty Start Date End Date Cheryl Calderon MD [facility] Adult Medicine [address] [place] [address] PCP - General Internal Medicine 07/17/17 documented as of this encounter
--- OUTSIDE RECORDS SUMMARY | 2024-12-22 16:44 | XMS_ITS | Encounter Summary ---
Author Organization [facility] Address [address] [place] [address] Care Team Providers Care Residential Designer Name Role Phone Cheryl Calderon MD Primary Care Provider [phone] Encounter Details Date Type Department Care Team (Late st Contact Info) Description 03/14/2018 Orders Only [facility]. Rheumatology [address] [place] [phone] Abel Fierro MD [address] [place] [address] Social History Tobacco Use Types Packs/Day Years [...] 9:19 PM EST Narrative Resulting Agency Comment [id number] us Abel Fierro MD LABORATORY Final Result Performing Organization Address City/[facility] Co de Phone Number [facility] [address] [place] [address] * C-REACTIVE PROTEIN (CRP) - INFLAMMATION (03/14/2018 1:47 PM EST) C reactive protein 1.7 <8.0 mg/L [facility] 03/14/2018 1:47 PM EST 03/14/2018 9:19 PM EST Narrative Resulting Agency Comment [id number] us Abel Fierro MD LABORATORY Final Result Performing Organization Address [place]/[facility] Co de Phone Number [facility] [address] [place] [address] * ERYTHROCYTE SEDIMENTATION RATE (ESR), WESTERGREN (03/14/2018 1:47 PM EST) Sedimentation Rate West[place]ren (ESR) 19 < OR = 30 mm/h [facility] 03/14/2018 1:47 PM EST 03/14/2018 9:19 PM EST Narrative Resulting Agency Comment [id number] Aebl Fierro MD LAB SAME DAY RESULT Final Resul t Performing Organization Address City/[facility] Co de Phone Number [facility] [address] [place] [address] * CREATININE WITH GLOMERULAR FILTRATION RATE, ESTIMATED (EGFR) (03/14/2018 1:47 PM EST) Creatinine 0.70 0.50 - 0.99 mg/dL [facility] Comment: For patients >49 years of age, the reference limit for Creatinine is approximately 13% higher for people identified as -Swedish. GFR 92 > OR = 60 mL/min/1. [...] needs for GFR calculation. Resulting Agency Comment [id number] us Abel Fierro MD LAB SAME DAY RESULT Final Resul t Performing Organization Address City/[facility] Co de Phone Number [facility] [address] [place] [address] * ALANINE AMINOTRANSFERASE (ALT), SERUM (03/14/2018 1:47 PM EST) ALT (SGPT) 18 6 - 29 U/L [facility] 03/14/2018 1:47 PM EST 03/14/2018 9:19 PM EST Narrative Resulting Agency Comment [id number] Abel Fierro MD LAB SAME DAY RESULT Final Resul t [facility] [address] [place] [address] * ASPARTATE AMINOTRANSFERASE (AST), SERUM (03/14/2018 1:47 PM EST) AST (SGOT) 23 10 - 35 U/L [facility] 03/14/2018 1:47 PM EST 03/14/2018 9:19 PM EST Narrative Resulting Agency Comment [id number] Abel Fierro MD LAB SAME DAY RESULT Final Resul t Performing Organization Address [place]/[facility] Co de Phone Number [facility] [address] [place] [address] * (ABNORMAL) CBC INCLUDES DIFFERENTIAL AND PLATELET [...] 9:19 PM EST Narrative Resulting Agency Comment [id number] us Abel Fierro MD LAB SAME DAY RESULT Final Resul t [facility] [address] [place] [address] documented in this encounter Visit Diagnoses Diagnosis Rheumatoid arthritis involving multiple sites with positive rheumatoid factor (HCC) documented in this encounter Care Teams Residential Designer Relationship Specialty Start Date End Date Cheryl Calderon MD [facility] Adult Medicine [address] [place] [address] PCP - General Internal Medicine 07/17/17 documented as of this encounter
--- OUTSIDE RECORDS SUMMARY | 2024-12-22 16:44 | XMS_ITS | Encounter Summary ---
Author Organization [facility] Address [address] [place] [address] Care Team Providers Care Combination Building Inspector Name Role Phone Cheryl Calderon MD Primary Care Provider Reason for Visit * Reason Comments E-prescribing Refill Request Encounter Details Date Type Department Care Team (Late st Contact Info) Description 02/01/2018 Refill [facility] Rheumatology [address] [place] [phone] Abel Fierro MD [address] [place] [address] E-prescribing Refill Request Social History Tobacco Use [...] on filedocumented in this encounter Care Teams Combination Building Inspector Relationship Specialty Start Date End Date Cheryl Calderon MD [facility] [address] [place] [address] PCP - General Internal Medicine 07/17/17 documented as of this encounter
--- OUTSIDE RECORDS SUMMARY | 2024-12-22 16:44 | XMS_ITS | Encounter Summary ---
Author Organization [facility] Address [address] [place] [address] Care Team Providers Care Fire Extinguisher Repairer Inspector Name Role Phone Cheryl Calderon MD Primary Care Provider [phone] Encounter Details Date Type Department Care Team (Late st Contact Info) Description 07/15/2018 Orders Only [facility] Rheumatology [address] [place] [phone] Melanie Aguirre MD Social History Tobacco Use Types Packs/Day Years [...] 12:27 AM EDT Narrative Resulting Agency Comment [id number] us Melanie Aguirre MD LABORATORY Final Result Performing Organization Address City/[facility]/ZIP Co de Phone Number [facility] [address] [place] [address] * (ABNORMAL) ERYTHROCYTE SEDIMENTATION RATE (ESR), WESTERGREN (07/15/2018 4:34 PM EDT) Sedimentation Rate [place]ren (ESR) 50(H) < OR = 30 mm/h [facility] 07/15/2018 4:34 PM EDT 07/16/2018 12:27 AM EDT Narrative Resulting Agency Comment [id number] us Melanie Aguirre MD LAB SAME DAY RESULT Final Result Performing Organization Address City/[facility]/ZIP Co de Phone Number [facility] [address] [place] [address] * (ABNORMAL) COMPREHENSIVE METABOLIC PANEL WITH GFR (07/15/2018 4:34 PM EDT) Glucose 106(H) 65 - 99 mg/dL [facility] Comment: Fasting reference interval For someone without known [...] 13% higher for people identified as -Zimbabwean. EGFR 95 > OR = 60 mL/min/1 [...] MD LABORATORY Final Result [facility] [address] [place] [address] * (ABNORMAL) CBC INCLUDES DIFFERENTIAL AND PLATELET [...] 12:27 AM EDT Narrative Resulting Agency Comment [id number] us Melanie Aguirre MD LAB SAME DAY RESULT Final Result Performing Organization Address City/State/[facility] Co de Phone Number [facility] [address] [place] [address] documented in this encounter Visit Diagnoses Diagnosis Rheumatoid arthritis involving multiple sites with positive rheumatoid factor (HCC) documented in this encounter Care Teams Fire Extinguisher Repairer Inspector Relationship Specialty Start Date End Date Cheryl Calderon MD [facility] Adult Medicine [address] [place] [address] PCP - General Internal Medicine 07/17/17 documented as of this encounter
--- OUTSIDE RECORDS SUMMARY | 2024-12-22 16:44 | XMS_ITS | Encounter Summary ---
Author Organization [facility] Address [address] [place] [address] Phone Care Team Providers Care Outside Machinist Supervisor Name Role Phone Patrick Sanchez MD Unavailable [phone] Cheryl Calderon MD Primary Care Provider Keren Mabry MD Unavailable Louisa Hogan MD Unavailable Charly Saxena DO Unavailable [phone] Abhinav Muhammad MD Unavailable [phone] Cheryl Giraldo PENCILLER Unavailable Wilfrido Steel MD Unavailable [phone] Sharon Martin PA-C Unavailable Ita Pineda WALL TAPER Primary Care Provider Cash Fernandes MD Unavailable [phone] Seven Menchaca MD Unavailable [phone] Chavo Jack MD Primary Care Provider Keren Poon [facility] Primary Care Provid er Chavo Jack MD Unavailable Willi Wells MD Unavailable Unavailable Jose Thakur MD Unavailable [phone] Chaim Danaverenice Camilo PHYSICIAN OFFICE ASSISTANT Unavailable Jonathan Alvarez MD Unavailable [phone] Anival Borja MD Unavailable [phone] [place] Lyndsay Linda PHYSICIAN OFFICE ASSISTANT Unavailable Gutierrez Pittman MD Unavailable [phone] Encounter Details Date Type Department Care Team (Late st Contact Info) Description 08/18/2020 Procedure Pass [facility], Ct Scan - [address] [address] Social History Tobacco Use Types Packs/Day Years [...] Date of Assessment Author No Risk Indicated 08/18/2020 10:47 PM EDT Annalisa Farias RN * Johnson Suicide Severity Rating Scale (Screener/Recent Self-Report) Question Answer Date of Assessment Author 1. Wish to be (Past 1 Month) No 08/18/2020 10:47 PM EDT James Mesa RN 2. Non-Specific Active Suicidal Thoughts (Past 1 Month) No 08/18/2020 10:47 PM EDT James Mesa RN 6. Suicidal Behavior (Lifetime) No 08/18/2020 10:47 PM EDT James Mesa RN documented as of this encounter Plan of Treatment Upcoming Encounters Date Type Department Care Team (Late st Contact Info) Description 12/25/2024 2:30 PM EDT Office Visit [facility] Infectious Diseases 22 [place] [address] Dana Rucker, PHYSICIAN OFFICE ASSISTANT [address] [address] 01/01/2025 1:00 PM EDT Office Visit [address] [address] Dana Rucker FNP [address] [address] Nereyda Wong, PT 380 [place] [address] 01/07/2025 2:30 PM EDT Office Visit [facility] Pulmonary, Allergy and Critical Care Medicine 10 [place] [address] Jose Thakur MD 30 [place] [address] 01/19/2025 2:30 PM EDT Office Visit [address] [address] Dana Rucker, PHYSICIAN OFFICE ASSISTANT [address] [address] Nereyda Wong, PT 380 [place], [place] [address] 01/26/2025 2:30 PM EDT Office Visit [address] [address] [place], Dana Leslee, [address] [address] Nereyda Wong, PT 380 [place] [address] 01/29/2025 3:00 PM EDT Office Visit [address] [place] [address] Keren Poon, WALL TAPER [address] [place] [address] 02/01/2025 3:00 PM EDT Office Visit [address] [place] [address] Keren Poon, WALL TAPER [address] [place] [address] 03/02/2025 2:30 PM EST Office Visit [address] [address] Dana Rucker, [address] [address] Nereyda Wong, PT 380 [place] [address] 03/09/2025 2:30 PM EST Office Visit [address] [address] Dana Rucker, [address] [address] Nereyda Wong, PT 380 [place] [address] 03/16/2025 2:30 PM EST Office Visit [facility] 380 [place] [address] Dana Rucker, PHYSICIAN OFFICE ASSISTANT 15 [facility], 2nd [place] [address] Nereyda Wong, PT 380 [place] [address] 06/03/2025 2:00 PM EST Office Visit [facility] [address] [place] [address] Keren Poon, ORI 170 [facility], 2nd [place] [address] documented as of this encounter Visit Diagnoses [...] as of this encounter Care Teams Outside Machinist Supervisor Relationship Specialty Start Date End Date Cheryl Calderon MD [address] [place] [address] PCP - General Family Medicine 04/23/18 08/18/20 Ita Pineda CNP 40 [place], [place] [email or web address] PCP - General Internal Medicine 08/19/20 09/17/22 Chavo Jack MD 40 [place], [place] PCP - General Internal Medicine 09/18/22 01/30/23 Keren Poon CNP [address] [place] [address], 2nd [place] [address] [email or web address] PCP - General Family Medicine 01/31/23 Patrick Sanchez MD [address] [place] [address] Department of [place] [address] [email or web address] Historical LMR Provider 09/10/14 Keren Mabry MD [address] [place] [address] Historical LMR Provider 07/10/18 Louisa Hogan MD [address] [place] [address] [email or web address] Historical LMR Provider 07/10/1807/29 Charly Saxena DO 1280 [facility]. [address] [place] [address] Historical LMR Provider 07/10/18 08/22/20 Abhinav Muhammad MD 115 [facility]. 104 [place] [address] [email or web address] Historical LMR Provider 07/10/18 08/22/20 Cheryl Giraldo NP 94 [place] [address] [email or web address] Historical LMR Provider 07/10/18 08/22/20 Wilfrido Steel MD [address] [place] [address] Historical LMR Provider 07/10/18 08/22/20 Sharon Martin PA-C 115 [facility]. 104 [place] [address] Historical LMR Provider 07/10/18 08/22/20 Csah Fernandes MD [address] [address] Gastroenterology 08/23/20 Seven Menchaca MD [address] [place] [address] Insurance Assigned Provider 08/04/22 08/03/23 Chavo Jack MD 40 [place] [address] [email or web address] Insurance Assigned Provider 08/03/23 05/04/24 Willi Wells MD [address] [place] [address] Rheumatology 02/04/24 Jose Thakur MD [address] [place] [address] [email or web address]der Pulmonary Disease 03/17/24 Dana Rucker FNP 15 [facility], 2nd [place] [address] [email or web address] Nurse Practitioner Infectious Diseases 05/21/24 Jonathan Alvarez MD [address] [place] [address], [address] [place] [address] [email or web address] Urology 05/14/23 Anival Borja MD [address] [place] [address], [address] [place] [address] [email or web address] Neurologist Neurology 01/04/23 Lyndsay Reynoso FNP [address] [place] [address] Nurse Practitioner Pain Medicine 05/27/22 Gutierrez Pittman MD [address] [place] [phone] Test Puller Cardiology 05/27/24 documented as of this encounter Additional Source Comments The information contained in this document represents components of the legal health record. It is not the complete legal health record.[facility]
--- OUTSIDE RECORDS SUMMARY | 2024-12-22 16:44 | XMS_ITS | Encounter Summary ---
Author Organization [facility] Address 5 [place] [address] Care Team Providers Care Technical Specialist Name Role Phone Charly Saxena Primary Care Provider [phone] Cheryl Calderon MD Primary Care Provider [phone] Reason for Visit * Reason Comments E-prescribing Refill Request Encounter Details Date Type Department Care Team ([facility] st Contact Info) Description 03/18/2017 Refill [facility] [address] [place] [address] Abel Fierro MD 5 [place] [address] E-prescribing Refill Request Social History Tobacco Use [...] to send a request for labs to [facility] in [place], [place] Lab request form sent to the [...] 04/18/17 1:30 PM Abel Fierro MD [facility] [phone] 07/15/17 1:00 PM Abel Fierro MD [facility] [phone] Pertinent lab results: No labs suggested for any medication orders signed or pended in this encounter. Refresh if any orders changed. Allergies: Acetaminophen-codeine; Gold; Opioid analgesics; and Sulfa antibiotics BP Readings from Last 1 Encounters: 12/28/16 (!) 149/85 Patient Active Problem List Diagnosis Date Noted ??? Elbow pain 06/03/2012 ??? Rheumatoid arthritis(714.0) ([facility]) 09/29/2010 Followed by rheumatology treated with methotrexate, [...] MOUTH EVERY DAY 0 ??? Nystatin (NYSTOP) 612384 UNIT/GM Powder APPLY TO BUTTOCKS THREE TIMES [...] on filedocumented in this encounter Care Teams Technical Specialist Relationship Specialty Start Date End Date Charly Saxena [facility] [address] [place] [address] PCP - General Internal Medicine 05/25/13 07/16/17 Cheryl Calderon MD [facility] 95 [place] [address] PCP - General Internal Medicine 07/17/17 documented as of this encounter
--- OUTSIDE RECORDS SUMMARY | 2024-12-22 16:44 | XMS_ITS | Encounter Summary ---
Author Organization [facility] Address 5 [place] [address] Care Team Providers Care Gear Hobber Set Up Operator Name Role Phone Charly Saxena Primary Care Provider [phone] Cheryl Calderon MD Primary Care Provider [phone] Encounter Details Date Type Department Care Team (Late st Contact Info) Description 07/15/2017 Orders Only [facility] Rheumatology [address] [place] [address] Abel Fierro MD 5 [place] [address] Social History Tobacco Use Types Packs/Day Years [...] approximately 13% higher for people identified as -Macanese. GFR 93 > OR = 60 mL/min/1. [...] needs for GFR calculation. Resulting Agency Comment [id number] us Abel Fierro MD LAB SAME DAY RESULT Final Resul t [facility] [address] [place] [address] * ALANINE AMINOTRANSFERASE (ALT), SERUM (07/15/2017 1:44 PM EDT) ALT (SGPT) 23 6 - 29 U/L [facility] 07/15/2017 1:44 PM EDT 07/15/2017 6:18 PM EDT Narrative Resulting Agency Comment [id number] Abel Fierro MD LAB SAME DAY RESULT Final Resul t Performing Organization Address City/[facility]/ZIP Co de Phone Number [facility] [address] [place] [address] * ASPARTATE AMINOTRANSFERASE (AST), SERUM (07/15/2017 1:44 PM EDT) AST (SGOT) 28 10 - 35 U/L [facility] 07/15/2017 1:44 PM EDT 07/15/2017 6:18 PM EDT Narrative Resulting Agency Comment [id number] us Abel Fierro MD LAB SAME DAY RESULT Final Resul t Performing Organization Address [facility] de Phone Number [facility] [address] [place] [address] * (ABNORMAL) CBC INCLUDES DIFFERENTIAL AND PLATELET [...] 6:18 PM EDT Narrative Resulting Agency Comment [id number] us Abel Fierro MD LAB SAME DAY RESULT Final Resul t [facility] [address] [place] [address] documented in this encounter Visit Diagnoses Diagnosis Rheumatoid arthritis involving multiple sites, unspecified rheumatoid factor presence documented in this encounter Care Teams Gear Hobber Set Up Operator Relationship Specialty Start Date End Date Charly Saxena [facility] 12[address] [place] [address] PCP - General Internal Medicine 05/25/13 07/16/17 Cheryl Calderon MD [facility] Adult Medicine 95 [place] [address] PCP - General Internal Medicine 07/17/17 documented as of this encounter
--- OUTSIDE RECORDS SUMMARY | 2024-12-22 16:44 | XMS_ITS | Encounter Summary ---
Author Organization [facility] Address [address] [place] [address] Phone Care Team Providers Care Probation Manager Name Role Phone Jessicaroxanne Ita Mccrackengh [facility] Primary Care Provider Cash Fernandes MD Unavailable [phone] Seven Menchaca MD Unavailable Chavo Jack MD Primary Care Provider Keren Poon [facility] Primary Care Provid er Chavo Jack MD Unavailable Willi Wells MD Unavailable Unavailable Jose Thakur MD Unavailable Dana Rucker SCRATCH POLISHER Unavailable [phone] Jonathan Alvarez MD Unavailable [phone] Anival Borja MD Unavailable [phone] Lyndsay Reynoso SCRATCH POLISHER Unavailable Gutierrez Pittman MD Unavailable [phone] Encounter Details Date Type Department Care Team (Late st Contact Info) Description 07/14/2021 Ancillary Orders [facility],Outside Imaging [address] [place] [address] System, Provider Not In, PhD Partners [address] [address] Social History Tobacco Use Types Packs/Day Years [...] high school, GED, job training, learning the Kazakh language, technical skills, or developing parenting skills)? [...] Description 12/25/2024 2:30 PM EDT Office Visit [facility] Infectious Diseases 22 [place] [address] Dana Rucker FNP [address] [address] [email or web address] 01/01/2025 1:00 PM EDT Office Visit [facility] 380 [place] [address] Dana Rucker, DIVYA [address] [address] [email or web address] Nereyda Wong, PT 380 [place] [address] 01/07/2025 2:30 PM EDT Office Visit [facility] All[facility] Critical [facility] Medicine 10 [place] [address] Jose Thakur MD 30 [place] [address] 01/19/2025 2:30 PM EDT Office Visit [facility] 380 [place] [address] Dana Rucker, SCRATCH POLISHER [address] [address] Nereyda Wong, PT 380 [place] [address] 01/26/2025 2:30 PM EDT Office Visit [address] [address] Josefina Ruckerh Leslee, [address] [address] Nereyda Wong, PT 380 [place] [address] 01/29/2025 3:00 PM EDT Office Visit [address] [place] [address] Keren Poon, CHARCOAL BURNER BEEHIVE KILN [address] [address] 02/01/2025 3:00 PM EDT Office Visit [address] [place] [address] Keren Poon, CHARCOAL BURNER BEEHIVE KILN [address] [place] [address] 03/02/2025 2:30 PM EST Office Visit [address] [address] Dana Ruckerley, [address] [address] Nereyda Wong, PT 380 [place] [address] 03/09/2025 2:30 PM EST Office Visit [address] [address] Dana Ruckerley, [address] [address] Nereyda Wong, PT 380 [place] [address] 03/16/2025 2:30 PM EST Office Visit [facility] [address] [place] [address] Dana Rucker, SCRATCH POLISHER 15 [facility], 2nd [place] [address] Nereyda Wong, PT 380 [place] [address] 06/03/2025 2:00 PM EST Office Visit [facility] [address] [place] [address] [place] [address] Keren Poon, ORI 170 [facility], 2nd [place] [address] [email or web address] documented as of this encounter Results * Mammogram Outside (No Interpretation) (05/15/2016 12:00 AM EST) Narrative SYSTEMGENERATED, DOCUMENTATION - 07/14/2021 1:03 PM EDT This study is for PACS storage only and not for interpretation. us Provider Not In System PhD IMG OUTSIDE IMAGING W /OUT INTERPRETATION Final Result * Mammogram Outside (No Interpretation) (10/18/2014 12:00 AM EDT) Narrative SYSTEMGENERATED, DOCUMENTATION - 07/14/2021 1:04 PM EDT This study is for PACS storage only and not for interpretation. us Provider Not In System PhD IMG OUTSIDE IMAGING W /OUT INTERPRETATION Final Result * Mammogram Outside (No Interpretation) (10/15/2013 12:00 AM EDT) Narrative SYSTEMGENERATED, DOCUMENTATION - 07/14/2021 1:05 PM EDT This study is for PACS storage only and not for interpretation. us Provider Not In System PhD IMG OUTSIDE IMAGING W /OUT INTERPRETATION Final Result * Mammogram Outside (No Interpretation) (10/09/2012 12:00 AM EDT) Narrative SYSTEMGENERATED, DOCUMENTATION - 07/14/2021 1:05 PM EDT This study is for PACS storage only and not for interpretation. us Provider Not In System PhD IMG OUTSIDE IMAGING W /OUT INTERPRETATION Final Result * Mammogram Outside (No Interpretation) (10/09/2011 12:00 [...] documented as of this encounter Care Teams Probation Manager Relationship Specialty Start Date End Date Ita PinedaORI 40 [place] [address] [email or web address] PCP - General Internal Medicine 08/19/20 09/17/22 Chavo Jack MD 40 [place] [address] [email or web address] PCP - General Internal Medicine 09/18/22 01/30/23 Keren Poon CNP [address] [place] [address], 2nd [place] [address] [email or web address] PCP - General Family Medicine 01/31/23 Cash Fernandes MD [address] [place] [address] [email or web address] Gastroenterology 08/23/20 Seven Menchaca MD 40 [place] [address] Insurance Assigned Provider 08/04/22 08/03/23 Chavo Jack MD 40 [place] [address] Insurance Assigned Provider 08/03/23 05/04/24 Willi Wells MD [address] [place] [address] [place] [address] Rheumatology 02/04/24 Jose Thakur MD 30 [place] [address] Rehabilitation Clerk Pulmonary Disease 03/17/24 Dana Rucker FNP 15 [facility], 2nd [place] [address] Nurse Practitioner Infectious Diseases 05/21/24 Jonathan Alvarez MD [address] [place] [address], [address] [place] [address] Urology 05/14/23 Anival Borja MD [address] [place] [address], [address] [place] [address] Neurologist Neurology 01/04/23 Lyndsay Reynoso FNP [address] [place] [address] Nurse Practitioner Pain Medicine 05/27/22 Gutierrez Pittman MD 40 [place] [address] Conveyor Feeder Cardiology 05/27/24 documented as of this encounter Additional Source Comments The information contained in this document represents components of the legal health record. It is not the complete legal health record.[facility]
--- OUTSIDE RECORDS SUMMARY | 2024-12-22 16:44 | XMS_ITS | Encounter Summary ---
Author Organization [facility] Address [address] [place] [address] Phone Care Team Providers Care Aircraft Powerplant Repairer Name Role Phone Jessicaroxanne Ita Mccrackengh [facility] Primary Care Provider Cash Fernandes MD Unavailable [phone] Seven Menchaca MD Unavailable Chavo Jack MD Primary Care Provider Keren Poon [facility] Primary Care Provid er Chavo Jack MD Unavailable Willi Wells MD Unavailable Unavailable Jose Thakur MD Unavailable Dana Rucker IN STORE BANKER Unavailable Jonathan Alvraez MD Unavailable [phone] Anival Borja MD Unavailable Lyndsay Reynoso IN STORE BANKER Unavailable Gutierrez Pittman MD Unavailable [phone] Encounter Details Date Type Department Care Team (Late st Contact Info) Description 04/09/2022 Procedure Pass [facility], Ct Scan - [facility] 30 [place] [address] Social History Tobacco Use Types Packs/Day Years [...] high school, GED, job training, learning the Nauruan language, technical skills, or developing parenting skills)? [...] Description 12/25/2024 2:30 PM EDT Office Visit [facility] Infectious Diseases 22 [place] [address] Dana Rucker FNP [address] [address] [email or web address] 01/01/2025 1:00 PM EDT Office Visit [facility] 380 [place] [address] Dana Rucker FNP [address] [address] [email or web address] Nereyda Wong, PT 380 [place] [address] [email or web address] 01/07/2025 2:30 PM EDT Office Visit [facility], Allergy and Critical Care Medicine 10 [place] [address] Jose Thakur MD 30 [place] [address] 01/19/2025 2:30 PM EDT Office Visit [facility] 380 [place] [address] Dana Rucker, IN STORE BANKER [address] [address] [email or web address] Nereyda Wong, PT 380 [place] [address] 01/26/2025 2:30 PM EDT Office Visit [address] [address] Dana Rucker FNP [address] [address] Nereyda Wong, PT 380 [place] [address] 01/29/2025 3:00 PM EDT Office Visit [address] [place] [address] Keren Poon, OPERATIONS OFFICER AFLOAT [address] [place] [address] 02/01/2025 3:00 PM EDT Office Visit [address] [place] [address] Keren Poon, OPERATIONS OFFICER AFLOAT [address] [place] [address] 03/02/2025 2:30 PM EST Office Visit [address] [address] Dana Rucker, [address] [address] Nereyda Wong, PT 380 [place] [address] 03/09/2025 2:30 PM EST Office Visit [facility] 380 [place] [address] Dana Rucker, [facility] [address] [address] Nereyda Wong, PT 380 [place] [address] 03/16/2025 2:30 PM EST Office Visit [facility] 380 [place] [address] Dana Rucker, IN STORE BANKER 15 [facility], 2nd [place] [address] [email or web address] Nereyda Wong, PT 380 [place] [address] 06/03/2025 2:00 PM EST Office Visit [facility] [address] [place] [address] [place] [address] Keren Poon, ORI 170 [facility], 2nd [place] [address] [email or web address] documented as of this encounter [...] documented as of this encounter Care Teams Aircraft Powerplant Repairer Relationship Specialty Start Date End Date Ita Pineda ORI 40 [place], [place] [email or web address] PCP - General Internal Medicine 08/19/20 09/17/22 Chavo Jack MD [address] [place] [address] [email or web address] PCP - General Internal Medicine 09/18/22 01/30/23 Keren Poon CNP [address] [place] [address], 2nd [place] [address] [email or web address] PCP - General Family Medicine 01/31/23 Cash Fernandes MD [address] [place] [address] [email or web address] Gastroenterology 08/23/20 Seven Menchaca MD 40 [place], [place] Insurance Assigned Provider 08/04/22 08/03/23 Cahvo Jack MD [address] [place] [address] Insurance Assigned Provider 08/03/23 05/04/24 Willi Wells MD [address] [place] [address] [place] [address] Rheumatology 02/04/24 Jose Thakur MD [address] [place] [id number] Mail Truck Driver Pulmonary Disease 03/17/24 Dana Rucker FNP 15 [facility], 2nd [place] [address] Nurse Practitioner Infectious Diseases 05/21/24 Jonathan Alvarez MD [address] [place] [address], [address] [place] [address] Urology 05/14/23 Anival Borja MD [address] [place] [address], [address] [place] [address] Neurologist Neurology 01/04/23 Lyndsay Reynoso FNP [address] [place] [address] Nurse Practitioner Pain Medicine 05/27/22 Gutierrez Pittman MD 40 [place] [address] Blanket Cutting Machine Operator Cardiology 05/27/24 documented as of this encounter Additional Source Comments The information contained in this document represents components of the legal health record. It is not the complete legal health record.[facility]
--- OUTSIDE RECORDS SUMMARY | 2024-12-22 16:44 | XMS_ITS | Encounter Summary ---
Author Organization [facility] Address [address] [place] [address] Care Team Providers Care Hospice Fellow Name Role Phone Charly Saxena Primary Care Provider [phone] Cheryl Calderon MD Primary Care Provider [phone] Encounter Details Date Type Department Care Team (Late st Contact Info) Description 05/24/2016 Orders Only [facility] Rheumatology [address] [place] [address] Abel Fierro MD 5 [place] [address] Social History Tobacco Use Types Packs/Day Years [...] higher for people identified as -Zambian. GFR 66 > OR = 60 mL/min/1. [...] needs for GFR calculation. Resulting Agency Comment [id number] us Abel Fierro MD LAB SAME DAY RESULT Final Resul t [facility] [address] [place] [address] * ALANINE AMINOTRANSFERASE (ALT), SERUM (05/24/2016 10:20 AM EST) ALT (SGPT) 27 6 - 29 U/L [facility] 05/24/2016 10:2 0 AM EST 05/24/2016 5:04 PM EST Narrative Resulting Agency Comment [id number] us Abel Fierro MD LAB SAME DAY RESULT Final Resul t Performing Organization Address City/[facility]/ZIP Co de Phone Number [facility] [address] [place] [address] * ASPARTATE AMINOTRANSFERASE (AST), SERUM (05/24/2016 10:20 AM EST) AST (SGOT) 23 10 - 35 U/L [facility] 05/24/2016 10:2 0 AM EST 05/24/2016 5:04 PM EST Narrative Resulting Agency Comment [id number] us Abel Fierro MD LAB SAME DAY RESULT Final Resul t Performing Organization Address [facility] de Phone Number [facility] [address] [place] [address] * (ABNORMAL) CBC INCLUDES DIFFERENTIAL AND PLATELET [...] 5:04 PM EST Narrative Resulting Agency Comment [id number] us Abel Fierro MD LAB SAME DAY RESULT Final Resul t Performing Organization Address City/State/[facility] Co de Phone Number [facility] [address] [place] [address] documented in this encounter Visit Diagnoses Diagnosis Rheumatoid arthritis involving multiple sites with positive rheumatoid factor (HCC) [M05.79] documented in this encounter Care Teams Hospice Fellow Relationship Specialty Start Date End Date Charly Saxena [facility] [address] [place] [address] PCP - General Internal Medicine 05/25/13 07/16/17 Cheryl Calderon MD [facility] Adult Medicine [address] [place] [address] PCP - General Internal Medicine 07/17/17 documented as of this encounter
--- OUTSIDE RECORDS SUMMARY | 2024-12-22 16:44 | XMS_ITS | Encounter Summary ---
Author Organization [facility] Address [address] [place] [address] Phone Care Team Providers Care Education Program Manager Name Role Phone Cash Fernandes MD Unavailable [phone] Seven Menchaca MD Unavailable Chavo Jack MD Primary Care Provider Keren Poon [facility] Primary Care Provid er Chavo Jack MD Unavailable Willi Wells MD Unavailable Unavailable Jose Thakur MD Unavailable [phone] Dana Rucker STORE SALES LEADER Unavailable [phone] Jonathan Alvarez MD Unavailable [phone] Anival Borja MD Unavailable Lyndsay Reynoso STORE SALES LEADER Unavailable Gutierrez Pittman MD Unavailable [phone] Encounter Details Date Type Department Care Team (Late st Contact Info) Description 10/11/2022 Transcribe Orders [facility] Laboratory [address] [place] [address] Anival Borja MD [address] [facility], [address] [place] [address] [email or web address] Social History Tobacco Use Types Packs/Day Years [...] Description 12/25/2024 2:30 PM EDT Office Visit [facility] Infectious Diseases [address] [place] [address] Dana Rucker FNP [address] [address] [email or web address] 01/01/2025 1:00 PM EDT Office Visit [address] [address] Dana Rucker STORE SALES LEADER [address] [address] Nereyda Wong, PT [address] [place] [address] 01/07/2025 2:30 PM EDT Office Visit [facility] Medicine 10 [place] [address] Jose Thakur MD 30 [place] [address] 01/19/2025 2:30 PM EDT Office Visit [address] [address] Dana Rucker STORE SALES LEADER [address] [address] Nereyda Wong, PT [address] [place] [address] 01/26/2025 2:30 PM EDT Office Visit [facility] [address] [place] [address] Dana Rucker, [facility] [address] [address] Nereyda Wong, PT [address] [place] [address] 01/29/2025 3:00 PM EDT Office Visit [address] [place] [address] Keren Poon, SCIENTIFIC PROGRAMMER ANALYST [address] [place] [address] 02/01/2025 3:00 PM EDT Office Visit [address] [place] [address] Keren Poon, SCIENTIFIC PROGRAMMER ANALYST [address] [place] [address] 03/02/2025 2:30 PM EST Office Visit [address] [address] Dana Rucker, [address] [address] Nereyda Wong, PT [address] [place] [address] 03/09/2025 2:30 PM EST Office Visit [address] [address] Dana Rucker, [facility] [address] [address] Nereyda Wong, PT [address] [place] [address] 03/16/2025 2:30 PM EST Office Visit [facility] Rehabilitation Services [address] [place] [address] Dana Rucker, STORE SALES LEADER [address] [address] Nereyda Wong, PT [address] [place] [address] 06/03/2025 2:00 PM EST Office Visit [facility] [address] [place] [address] [place] [address] Keren Poon, SCIENTIFIC PROGRAMMER ANALYST [address] [address] [email or web address] documented [...] documented as of this encounter Care Teams Education Program Manager Relationship Specialty Start Date End Date Chavo Jack MD [address] [place] [address] PCP - General Internal Medicine 09/18/22 01/30/23 Keren Poon CNP [address] [place] [address], 2nd [place] [address] PCP - General Family Medicine 01/31/23 Cash Fernandes MD [address] [place] [address] Gastroenterology 08/23/20 Seven Menchaca MD [address] [place] [address] Insurance Assigned Provider 08/04/22 08/03/23 Chavo Jack MD [address] [place] [address] Insurance Assigned Provider 08/03/23 05/04/24 Willi Wells MD [address] [place] [address] [place] [address] Rheumatology 02/04/24 Jose Thakur MD [address] [place] [address] Probation And Parole Officer Pulmonary Disease 03/17/24 Dana Rucker FNP 15 [facility], 2nd [place] [address] Nurse Practitioner Infectious Diseases 05/21/24 Jonathan Alvarez MD [address] [place] [address], [address] [place] [address] Urology 05/14/23 Anival Borja MD [address] [place] [address], [address] [place] [address] Neurologist Neurology 01/04/23 Lyndsay Reynoso FNP [address] [place] [address] Nurse Practitioner Pain Medicine 05/27/22 Gutierrez Pittman MD [address] [place] [address] Bus And Rail Operator Cardiology 05/27/24 documented as of this encounter Additional Source Comments The information contained in this document represents components of the legal health record. It is not the complete legal health record.[facility]
--- OUTSIDE RECORDS SUMMARY | 2024-12-22 16:44 | XMS_ITS | Encounter Summary ---
Author Organization [facility] Address [address] [place] [address] Phone Care Team Providers Care Rabies Inspector Name Role Phone Jessicaroxanne Ita Nelson [facility] Primary Care Provider Cash Fernandes MD Unavailable [phone] Seven Menchaca MD Unavailable [phone] Chavo Jack MD Primary Care Provider Keren Poon [facility] Primary Care Provid er Chavo Jack MD Unavailable Willi Wells MD Unavailable Unavailable Jose Thakur MD Unavailable Dana Rucker LABOR EXPEDITER Unavailable Jonathan Alvarez MD Unavailable [phone] Anival Borja MD Unavailable [phone] Lyndsay Reynoso LABOR EXPEDITER Unavailable Gutierrez Pittman MD Unavailable [phone] Reason for Referral * MRI/CAT Scan - Closed Specialty Diagnoses / Procedures Referred By Cayden montoya Referred To Contact Radiology Diagnoses Epigastric abdominal pain FH: pancreatic cancer Procedures CT Abdomen Only (No Pelvis) Argelia Taylor NP Phone: tel: fax: Referral ID Status Reason Start Date Expiration Date Visits Re quested Visits Authorized [id number] Closed 04/09/2022 04/09/2023 1 1 Encounter Details Date Type Department Care Team (Latest Contact Info) Description 04/09/2022 Transcribe Orders Virtual Department 30 [place] [address] Argelia Taylor NP 10 [place] [address] Epigastric abdominal pain (Primary Dx); FH: pancreatic [...] high school, GED, job training, learning the Martiniquais language, technical skills, or developing parenting skills)? [...] Description 12/25/2024 2:30 PM EDT Office Visit [facility] Infectious Diseases 22 [place] [address] Dana Rucker FNP [address] [address] 01/01/2025 1:00 PM EDT Office Visit [facility] Services [address] [place] [address] Dana Rucker [address] [address] Nereyda Wong, PT [address] [place] [address] 01/07/2025 2:30 PM EDT Office Visit [facility] 10 [place] [address] Jose Thakur MD 30 [place] [address] 01/19/2025 2:30 PM EDT Office Visit [facility] [address] [place] [address] Dana Rucker FNP [address] [address] Nereyda Wong, PT [address] [place] [address] 01/26/2025 2:30 PM EDT Office Visit [facility] [address] [place] [address] Dana Rucker, [address] [address] Nereyda Wong, PT [address] [place] [address] 01/29/2025 3:00 PM EDT Office Visit [address] [place] [address] Keren Poon, WELT INSOLE CHANNELER [address] [place] [address] 02/01/2025 3:00 PM EDT Office Visit [address] [place] [address] Keren Poon, WELT INSOLE CHANNELER [address] [place] [address] 03/02/2025 2:30 PM EST Office Visit [facility] [address] [place] [address] Dana Rucker LABOR EXPEDITER 15 [facility], [address] [place] [address] Nereyda Wong, PT [address] [place] [address] 03/09/2025 2:30 PM EST Office Visit [facility] [address] [place] [address] Dana Rucker, [facility] 15 [facility], [address] [place] [address] Nereyda Wong, PT [address] [place] [address] 03/16/2025 2:30 PM EST Office Visit [address] [address] Dana Rucker, [facility] [address] [address] Nereyda Wong, PT [address] [place] [address] 06/03/2025 2:00 PM EST Office Visit [facility] [address] [place] [address] [place] [address] Keren Poon, WELT INSOLE CHANNELER [address] [place] [address] documented as of this encounter Results * CT ABDOMEN WITH CONTRAST (04/19/2022 2:24 PM EST) Anatomical Region Laterality Modality Abdomen, Abdominal Vasculature C omputed Tomography 04/19/2022 3:31 PM EST Impressions 04/19/2022 5:18 PM EST Increase in biliary ductal dilatation without any obvious filling defect. No obvious pancreatic lesion seen. Indeterminate 9 mm [...] appropriate providers of potentially importantfindings. Argelia Taylor NP IMG CT XSPECIALTY ORDERAB LES Final Result documented in this encounter Visit [...] documented as of this encounter Care Teams Rabies Inspector Relationship Specialty Start Date End Date Miriam Itasheryl Nelson CNP [address] [place] [address] [email or web address] PCP - General Internal Medicine 08/19/20 09/17/22 Chavo Jack MD [address] [place] [address] [email or web address] PCP - General Internal Medicine 09/18/22 01/30/23 Keren Poon CNP [address] [place] [address], 2nd [place] [address] [email or web address] PCP - General Family Medicine 01/31/23 Cash Fernandes MD [address] [place] [address] [email or web address] Gastroenterology 08/23/20 Seven Menchaca MD [address] [place] [address] Insurance Assigned Provider 08/04/22 08/03/23 Chavo Jack MD [address] [place] [address] Insurance Assigned Provider 08/03/23 05/04/24 Willi Wells MD [address] [facility] [place] [address] Rheumatology 02/04/24 Jose Thakur MD 30 [place] [address] Veneer Splicer Pulmonary Disease 03/17/24 Dana Rucker FNP 15 [facility], 2nd [place] [address] Nurse Practitioner Infectious Diseases 05/21/24 Jonathan Alvarez MD [address] [place] [address], [address] [place] [address] Urology 05/14/23 Anival Broja MD [address] [place] [address], [address] [place] [address] Neurologist Neurology 01/04/23 Lyndsay Reynoso FNP [address] [place] [address] Nurse Practitioner Pain Medicine 05/27/22 Gutierrez Pittman MD [address] [place] [phone] Tile Conduit Layer Cardiology 05/27/24 documented as of this encounter Additional Source Comments The information contained in this document represents components of the legal health record. It is not the complete legal health record.[facility]
--- OUTSIDE RECORDS SUMMARY | 2024-12-22 16:44 | XMS_ITS | Encounter Summary ---
Author Organization [facility] Address [address] [place] [address] Care Team Providers Care Baccarat Manager Name Role Phone Charly Saxena Primary Care Provider [phone] Cheryl Calderon MD Primary Care Provider [phone] Encounter Details Date Type Department Care Team (Late st Contact Info) Description 12/28/2016 Orders Only [facility] Rheumatology [address] [place] [address] Abel Fierro MD 5 [place] [address] Social History Tobacco Use Types Packs/Day Years [...] 8:27 PM EDT Narrative Resulting Agency Comment [id number] us Abel Fierro MD LAB SAME DAY RESULT Final Resul t [facility] [address] [place] [address] * ALANINE AMINOTRANSFERASE (ALT), SERUM (12/28/2016 3:13 PM EDT) ALT (SGPT) 29 6 - 29 U/L [facility] 12/28/2016 3:13 PM EDT 12/28/2016 8:27 PM EDT Narrative Resulting Agency Comment [id number] us Abel Fierro MD LAB SAME DAY RESULT Final Resul t [facility] [address] [place] [address] * C-REACTIVE PROTEIN (CRP) - INFLAMMATION (12/28/2016 3:13 PM EDT) C reactive protein 0.24 <0.80 mg/dL [facility] Comment: Please be advised that patients taking Carboxypenicillins may exhibit falsely decreased C-Reactive Protein levels due to an analytical interference in this assay. 12/28/2016 3:13 PM EDT 12/28/2016 8:27 PM EDT Narrative Resulting Agency Comment [id number] Abel Fierro MD LABORATORY Final Result Performing Organization Address [facility] Co de Phone Number [facility] [address] [place] [address] * ERYTHROCYTE SEDIMENTATION RATE (ESR), WESTERGREN (12/28/2016 3:13 PM EDT) Pathologist [facility] Sedimentation Rate Westegren (ESR) 6 < OR = 30 mm/h [facility] 12/28/2016 3:13 PM EDT 12/28/2016 8:27 PM EDT Narrative Resulting Agency Comment [id number] Abel Fierro MD LAB SAME DAY RESULT Final Resul t Performing Organization Address [facility] Co de Phone Number [facility] [address] [place] [address] * (ABNORMAL) BASIC METABOLIC PANEL WITH (GFR) [...] approximately 13% higher for people identified as -Kittitian. GFR 77 > OR = 60 mL/min/1 [...] needs for GFR calculation. Resulting Agency Comment [id number] us Abel Fierro MD LABORATORY Final Result [facility] [address] [place] [address] * (ABNORMAL) CBC INCLUDES DIFFERENTIAL AND PLATELET [...] 8:27 PM EDT Narrative Resulting Agency Comment [id number] us Abel Fierro MD LAB SAME DAY RESULT Final Resul t [facility] [address] [place] [address] documented in this encounter Visit Diagnoses Diagnosis Rheumatoid arthritis involving multiple sites with positive rheumatoid factor (HCC) documented in this encounter Care Teams Baccarat Manager Relationship Specialty Start Date End Date Charly Saxena [facility] [address] [place] [address] PCP - General Internal Medicine 05/25/13 07/16/17 Cheryl Calderon MD [facility] Adult Medicine [address] [place] [address] PCP - General Internal Medicine 07/17/17 documented as of this encounter
--- OUTSIDE RECORDS SUMMARY | 2024-12-22 16:44 | XMS_ITS | Encounter Summary ---
Author Organization [facility] Address [address] [place] [address] Care Team Providers Care Ophthalmic Technician Apprentice Name Role Phone Charly Saxena Primary Care Provider [phone] Cheryl Calderon MD Primary Care Provider [phone] Encounter Details Date Type Department Care Team (Late st Contact Info) Description 04/18/2017 Orders Only [facility] Rheumatology [address] [place] [address] Abel Fierro MD [address] [place] [address] Social History Tobacco Use Types Packs/Day Years [...] 5:02 PM EST Narrative Resulting Agency Comment [id number] us Abel Fierro MD LABORATORY Final Result [facility] [address] [place] [address] * ERYTHROCYTE SEDIMENTATION RATE (ESR), JOSEERGREN (04/18/2017 12:15 PM EST) Sedimentation Rate Westegren (ESR) 9 < OR = 30 mm/h [facility] 04/18/2017 12:1 5 PM EST 04/18/2017 5:02 PM EST Narrative Resulting Agency Comment [id number] us Abel Fierro MD LAB SAME DAY RESULT Final Resul t Performing Organization Address City/[facility]/ZIP Co de Phone Number [facility] [address] [place] [address] * CREATININE WITH GLOMERULAR FILTRATION RATE, ESTIMATED (EGFR) (04/18/2017 12:15 PM EST) Creatinine 0.88 0.50 - 0.99 mg/dL [facility] Comment: For patients >49 years of age, the reference limit for Creatinine is approximately 13% higher for people identified as -Ivorian. GFR 70 > OR = 60 mL/min/1. [...] needs for GFR calculation. Resulting Agency Comment [id number] us Abel Fierro MD LAB SAME DAY RESULT Final Resul t Performing Organization Address [facility] Co de Phone Number [facility] [address] [place] [address] * ALANINE AMINOTRANSFERASE (ALT), SERUM (04/18/2017 12:15 PM EST) ALT (SGPT) 19 6 - 29 U/L [facility] 04/18/2017 12:1 5 PM EST 04/18/2017 5:02 PM EST Narrative Resulting Agency Comment [id number] us Abel Fierro MD LAB SAME DAY RESULT Final Resul t Performing Organization Address [facility] Co de Phone Number [facility] [address] [place] [address] * ASPARTATE AMINOTRANSFERASE (AST), SERUM (04/18/2017 12:15 PM EST) AST (SGOT) 19 10 - 35 U/L [facility] 04/18/2017 12:1 5 PM EST 04/18/2017 5:02 PM EST Narrative Resulting Agency Comment [id number] us Abel Fierro MD LAB SAME DAY RESULT Final Resul t Performing Organization Address [facility] de Phone Number [facility] [address] [place] [address] * CBC INCLUDES DIFFERENTIAL AND PLATELET COUNT [...] 5:02 PM EST Narrative Resulting Agency Comment [id number] us Abel Fierro MD LAB SAME DAY RESULT Final Resul t Performing Organization Address City/[facility] Co de Phone Number [facility] [address] [place] [address] documented in this encounter Visit Diagnoses Diagnosis Rheumatoid arthritis involving multiple sites with positive rheumatoid factor (HCC) documented in this encounter Care Teams Ophthalmic Technician Apprentice Relationship Specialty Start Date End Date Charly Saxena [facility] [address] [place] [address] PCP - General Internal Medicine 05/25/13 07/16/17 Cheryl Calderon MD [facility] Adult Medicine [address] [place] [address] PCP - General Internal Medicine 07/17/17 documented as of this encounter
--- OUTSIDE RECORDS SUMMARY | 2024-12-22 16:44 | XMS_ITS | Encounter Summary ---
Author Organization [facility] Address [address] [place] [address] Care Team Providers Care Business Continuity Consultant Name Role Phone Cheryl Calderon MD Primary Care Provider [phone] Reason for Visit * Reason Comments Appointment Encounter Details Date Type Department Care Team ([facility] st Contact Info) Description 01/12/2019 Telephone [facility] Hematology/Oncology [address] [facility] [address] [place] [phone] Ita Anne RN [address] [place] [address] Appointment Social History Tobacco Use Types Packs/Day [...] Phone 01/19/19 3:10 PM Lyndsay Lopez MD [facility]. Ophthalmology [phone] 01/26/19 9:30 AM EAP CHEMO [place] HEM ONC [facility] Hematology/Oncology [phone] 01/30/19 2:40 PM Liliana Calderon NP [facility] Hematology/Oncology [phone] Patient's is aware of the appointment. * Telephone Encounter - Lilaina Calderon NP - 01/14/2019 5:28 PM EDT To schedule a follow-up visit for this patient within the week of Rituxan infusion. Thanks! * Telephone Encounter - Apple Bridges - 01/12/2019 4:44 PM EDT Liliana is not in the office on 01/26/19, she is in [place]. * Telephone Encounter - Ita Anne - [...] on filedocumented in this encounter Care Teams Business Continuity Consultant Relationship Specialty Start Date End Date Cheryl Calderon MD [facility] Medicine [address] [place] [address] PCP - General Internal Medicine 07/17/17 documented as of this encounter
--- OUTSIDE RECORDS SUMMARY | 2024-12-22 16:44 | XMS_ITS | Encounter Summary ---
Author Organization [facility] Address [address] [place] [address] Phone Care Team Providers Care Waste Collection Driver Name Role Phone Jessicaroxanne Ita Mccrackengh [facility] Primary Care Provider Cash Fernandes MD Unavailable [phone] Seven Menchaca MD Unavailable Chavo Jack MD Primary Care Provider Keren Poon [facility] Primary Care Provid er Chavo Jack MD Unavailable Willi Wells MD Unavailable Unavailable Jose Thakur MD Unavailable Dana Rucker PER DIEM PHYSICAL THERAPIST ASSISTANT Unavailable [phone] Jonathan Alvarez MD Unavailable [phone] Anival Borja MD Unavailable Lyndsay Reynoso PER DIEM PHYSICAL THERAPIST ASSISTANT Unavailable Gutierrez Pittman MD Unavailable [phone] Encounter Details Date Type Department Care Team (Late st Contact Info) Description 02/10/2021 Procedure Pass [facility], [facility] [address] [place] [address] Social History Tobacco Use Types Packs/Day Years [...] high school, GED, job training, learning the Cym[place] language, technical skills, or developing parenting skills)? [...] EDT Postblayne , Waleska Mock RN * [place] Suicide Severity Rating Scale (Screener/Recent Self-Report) Question Answer Date of Assessment Author 1. Wish to be (Past 1 Month) No 02/10/2021 1:41 PM EDT Billy, Waleska irby RN 2. Non-Specific Active Suicidal Thoughts (Past 1 Month) No 02/10/2021 1:41 PM EDT Billy, Waleska irby RN 6. Suicidal Behavior (Lifetime) No 02/10/2021 1:41 PM EDT Waleska Cervantes RN documented as of this encounter Plan of Treatment Upcoming Encounters Date Type Department Care Team (Late st Contact Info) Description 12/25/2024 2:30 PM EDT Office Visit [facility] Infectious Diseases 22 [place] [address] Dana Rucker, [facility] [address] [address] 01/01/2025 1:00 PM EDT Office Visit [facility] Services 380 [place] [address] Dana Rucker [address] [address] Nereyda Wong, PT 380 [place] [address] 01/07/2025 2:30 PM EDT Office Visit [facility], Allergy [facility] Critical Care Medicine 10 [place] [address] Jose Thakur MD 30 [place] [address] 01/19/2025 2:30 PM EDT Office Visit [facility] 380 [place] [address] Dana Rucker FNP [address] [address] Nereyda Wong, PT 380 [place] [address] 01/26/2025 2:30 PM EDT Office Visit [facility] 380 [place] [address] Dana Rucker, [address] [address] Nereyda Wong, PT 380 [place] [address] 01/29/2025 3:00 PM EDT Office Visit [address] [place] [address] Keren Poon, CAPTAIN/CHECK AIRMAN [address] [place] [address] 02/01/2025 3:00 PM EDT Office Visit [address] [place] [address] Keren Poon, CAPTAIN/CHECK AIRMAN [address] [place] [address] 03/02/2025 2:30 PM EST Office Visit [facility] 380 [place] [address] Dana Rucker PER DIEM PHYSICAL THERAPIST ASSISTANT [address] [address] Nereyda Wong, PT 380 [place] [address] 03/09/2025 2:30 PM EST Office Visit [facility] 380 [place] [address] Dana Ruckerley, [facility] [address] [address] Nereyda Wong, PT 380 [place] [address] 03/16/2025 2:30 PM EST Office Visit [facility] 380 [place] [address] Dana Ruckerley, [facility] [address] [address] Nereyda Wong, PT 380 [place] [address] 06/03/2025 2:00 PM EST Office Visit [facility] [address] [place] [address] [place] [address] Keren Poon, CAPTAIN/CHECK AIRMAN [address] [place] [address] documented as of this encounter Visit Diagnoses [...] documented as of this encounter Care Teams Waste Collection Driver Relationship Specialty Start Date End Date Ita Pineda CNP 40 [place] [address] [email or web address] PCP - General Internal Medicine 08/19/20 09/17/22 Chavo Jack MD 40 [place] [address] PCP - General Internal Medicine 09/18/22 01/30/23 Keren Poon CNP [address] [place] [address], 2nd [place] [address] PCP - General Family Medicine 01/31/23 Cash Fernandes MD [address] [place] [address] Gastroenterology 08/23/20 Seven Menchaca MD 40 [place] [address] [email or web address] Insurance Assigned Provider 08/04/22 08/03/23 Chavo Jack MD 40 [place] [address] Insurance Assigned Provider 08/03/23 05/04/24 Willi Wells MD [address] [place] [address] Rheumatology 02/04/24 Jose Thakur MD [address] [place] [address] [email or web address] [employer] Pulmonary Disease 03/17/24 Dana Rucker FNP [address] [place] [address], 2nd [place] [address] [email or web address] Nurse Practitioner Infectious Diseases 05/21/24 Jonathan Alvarez MD [address] [place] [address], [address] [place] [address] Urology 05/14/23 Anival Borja MD [address] [place] [address], [address] [place] [address] Neurologist Neurology 01/04/23 Lyndsay Reynoso FNP [address] [place] [address] Nurse Practitioner Pain Medicine 05/27/22 Gutierrez Pittman MD 40 [place] [address] Title I Teacher Cardiology 05/27/24 documented as of this encounter Additional Source Comments The information contained in this document represents components of the legal health record. It is not the complete legal health record.[facility]
--- OUTSIDE RECORDS SUMMARY | 2024-12-22 16:44 | XMS_ITS | Encounter Summary ---
Author Organization [facility] Address 5 [place] [address] Care Team Providers Care Merchandiser Retail Representative Name Role Phone Charly Saxena Primary Care Provider [phone] Cheryl Calderon MD Primary Care Provider [phone] Encounter Details Date Type Department Care Team (Late st Contact Info) Description 10/15/2016 Orders Only [facility] Rheumatology [address] [place] [address] Abel Fierro MD 5 [place] [address] Social History Tobacco Use Types Packs/Day Years [...] EDT) C reactive protein 0.19 <0.80 mg/dL [facility] Comment: Please be advised that patients taking Carboxypenicillins may exhibit falsely decreased C-Reactive Protein levels due to an analytical interference in this assay. 10/15/2016 12:3 9 PM EDT 10/15/2016 7:34 PM EDT Narrative Resulting Agency Comment [id number] us Abel Fierro MD LABORATORY Final Result [facility] [address] [place] [address] * ERYTHROCYTE SEDIMENTATION RATE (ESR), KUNAL (10/15/2016 12:39 PM EDT) Sedimentation Rate [place] (ESR) 11 < OR = 30 mm/h [facility] 10/15/2016 12:3 9 PM EDT 10/15/2016 7:34 PM EDT Narrative Resulting Agency Comment [id number] us Abel Fierro MD LAB SAME DAY RESULT Final Resul t Performing Organization Address [facility] de Phone Number [facility] [address] [place] [address] * CREATININE WITH GLOMERULAR FILTRATION RATE, ESTIMATED (EGFR) (10/15/2016 12:39 PM EDT) Creatinine 0.79 0.50 - 0.99 mg/dL [facility] Comment: For patients >49 years of age, the reference limit for Creatinine is approximately 13% higher for people identified as -Bahamian. GFR 81 > OR = 60 mL/min/1. [...] needs for GFR calculation. Resulting Agency Comment [id number] us Abel Fierro MD LAB SAME DAY RESULT Final Resul t Performing Organization Address [facility] Co de Phone Number [facility] [address] [place] [address] * ALANINE AMINOTRANSFERASE (ALT), SERUM (10/15/2016 12:39 PM EDT) ALT (SGPT) 27 6 - 29 U/L [facility] 10/15/2016 12:3 9 PM EDT 10/15/2016 7:34 PM EDT Narrative Resulting Agency Comment [id number] us Abel Fierro MD LAB SAME DAY RESULT Final Resul t Performing Organization Address [facility] Co de Phone Number [facility] [address] [place] [address] * ASPARTATE AMINOTRANSFERASE (AST), SERUM (10/15/2016 12:39 PM EDT) AST (SGOT) 25 10 - 35 U/L [facility] 10/15/2016 12:3 9 PM EDT 10/15/2016 7:34 PM EDT Narrative Resulting Agency Comment [id number] us Abel Fierro MD LAB SAME DAY RESULT Final Resul t Performing Organization Address [facility] de Phone Number [facility] [address] [place] [address] * (ABNORMAL) CBC INCLUDES DIFFERENTIAL AND PLATELET [...] 7:34 PM EDT Narrative Resulting Agency Comment [id number] us Abel Fierro MD LAB SAME DAY RESULT Final Resul t [facility] [address] [place] [address] documented in this encounter Visit Diagnoses Diagnosis Rheumatoid arthritis involving multiple sites with positive rheumatoid factor (HCC) [M05.79] documented in this encounter Care Teams Merchandiser Retail Representative Relationship Specialty Start Date End Date Charly Saxena [facility] [address] [place] [address] PCP - General Internal Medicine 05/25/13 07/16/17 Cheryl Calderon MD [facility] [address] [place] [address] PCP - General Internal Medicine 07/17/17 documented as of this encounter
--- OUTSIDE RECORDS SUMMARY | 2024-12-22 16:44 | XMS_ITS | Encounter Summary ---
Author Organization [facility] Address [address] [place] [address] Phone Care Team Providers Care Dry Color Mixer Name Role Phone Cash Fernandes MD Unavailable [phone] Seven Menchaca MD Unavailable Chavo Jack MD Primary Care Provider Keren Poon [facility] Primary Care Provid er Chavo Jack MD Unavailable Willi Wells MD Unavailable Unavailable Jose Thakur MD Unavailable Dana Rucker SLOT ATTENDANT Unavailable Jonathan Alvarez MD Unavailable [phone] Anival Borja MD Unavailable Lyndsay Reynoso SLOT ATTENDANT Unavailable Gutierrez Pittman MD Unavailable [phone] Encounter Details Date Type Department Care Team (Late st Contact Info) Description 10/04/2022 Procedure Pass [facility], [address] [place] [address] Social History Tobacco Use Types Packs/Day Years [...] Description 12/25/2024 2:30 PM EDT Office Visit [facility] Infectious Diseases 22 [place] [address] Dana Rucker FNP [address] [address] [email or web address] 01/01/2025 1:00 PM EDT Office Visit [address] [address] Dana Rucker FNP [address] [address] [email or web address] Nereyda Wong, PT 380 [place] [address] 01/07/2025 2:30 PM EDT Office Visit [facility], All[facility] Critical [facility] 10 [place] [address] Jose Thakur MD 30 [place] [address] 01/19/2025 2:30 PM EDT Office Visit [address] [address] Dana Rucker FNP [address] [address] [email or web address] Nereyda Wong, PT 380 [place] [address] 01/26/2025 2:30 PM EDT Office Visit [address] [address] Dana Rucker, [facility] 15 [facility], [address] [place] [address] Nereyda Wong, PT 380 [place] [address] 01/29/2025 3:00 PM EDT Office Visit [address] [place] [address] Keren Poon, NICK SETTER [address] [place] [address] 02/01/2025 3:00 PM EDT Office Visit [address] [place] [address] Keren Poon, NICK SETTER [address] [place] [address] 03/02/2025 2:30 PM EST Office Visit [address] [address] Dana Ruckerley, [address], [address] [place] [address] Nereyda Wong, PT [address] [place] [address] 03/09/2025 2:30 PM EST Office Visit [address] [address] Dana Ruckerley, [facility] 15 [facility], [address] [place] [address] Nereyda Wong, PT 380 [place] [address] [email or web address] 03/16/2025 2:30 PM EST Office Visit [facility] Rehabilitation Services [address] [facility] [place] [address] Dana Rucker, SLOT ATTENDANT 15 [facility], 2nd [place] [address] Nereyda Wong, PT [address] [place] [address] [email or web address] 06/03/2025 2:00 PM EST Office Visit [facility] [address] [place] [address] [place] [address] Keren Poon, ORI [address] [facility], [address]nd [place] [address] [email or web address] [...] documented as of this encounter Care Teams Dry Color Mixer Relationship Specialty Start Date End Date Chavo Jack MD 40 [place] [address] PCP - General Internal Medicine 09/18/22 01/30/23 Keren Poon CNP [address] [place] [address], 2nd [place] [address] [email or web address] PCP - General Family Medicine 01/31/23 Cash Fernandes MD [address] [place] [address] Gastroenterology 08/23/20 Seven Menchaca MD 40 [place] [address] Insurance Assigned Provider 08/04/22 08/03/23 Chavo Jack MD [address] [place] [address] Insurance Assigned Provider 08/03/23 05/04/24 Willi Wells MD [address] [place] [address] [place] [address] Rheumatology 02/04/24 Jose Thakur MD [address] [place] [address] Rolled Glass Crosscutter Pulmonary Disease 03/17/24 Dana Rucker FNP [address] [place] [address] 2nd [place] [address] Nurse Practitioner Infectious Diseases 05/21/24 [place] [address] [place] [address], [address] [place] [address] Urology 05/14/23 Anival Borja MD [address] [place] [address], [address] [place] [address] Neurologist Neurology 01/04/23 Lyndsay Reynoso FNP [address] [place] [address] Nurse Practitioner Pain Medicine 05/27/22 Gutierrez Pittman MD 40 [place] [address] Decorating Machine Operator Cardiology 05/27/24 documented as of this encounter Additional Source Comments The information contained in this document represents components of the legal health record. It is not the complete legal health record.[facility]
--- OUTSIDE RECORDS SUMMARY | 2024-12-22 16:44 | XMS_ITS | Encounter Summary ---
Author Organization [facility] Address [address] [place] [address] Phone Care Team Providers Care River Rafting Guide Name Role Phone Jessicaroxanne Ita Mccrackengh [facility] Primary Care Provider Cash Fernandes MD Unavailable [phone] Seven Menchaca MD Unavailable [phone] Chavo Jack MD Primary Care Provider Keren Poon [facility] Primary Care Provid er Chavo Jack MD Unavailable Willi Wells MD Unavailable Unavailable Jose Thakur MD Unavailable Dana Rucker ENROLLMENT MANAGEMENT VICE PRESIDENT Unavailable Jonathan Alvarez MD Unavailable [phone] Anival Borja MD Unavailable Lyndsay Reynoso ENROLLMENT MANAGEMENT VICE PRESIDENT Unavailable Gutierrez Pittman MD Unavailable [phone] Encounter Details Date Type Department Care Team (Late st Contact Info) Description 02/10/2021 Procedure Pass [facility], Ct Scan - [address] [address] Social History Tobacco Use Types Packs/Day Years [...] EDT Postblayne , Waleska Mock RN * [place] Suicide Severity Rating Scale (Screener/Recent Self-Report) Question [...] Description 12/25/2024 2:30 PM EDT Office Visit [facility] Infectious Diseases 22 [place] [address] Dana Rucker, [facility] [address] [address] 01/01/2025 1:00 PM EDT Office Visit [facility] Rehabilitation Services 380 [place] [address] Dana Rucker [address] [address] Nereyda Wong, PT 380 [place] [address] 01/07/2025 2:30 PM EDT Office Visit [facility], Allergy and Critical Care Medicine 10 [place] [address] Jose Thakur MD 30 [place] [address] 01/19/2025 2:30 PM EDT Office Visit [facility] 380 [place] [address] Dana Rucker FNP [address] [address] Nereyda Wong, PT 380 [place] [address] 01/26/2025 2:30 PM EDT Office Visit [facility] 380 [place] [address] Dana Rucker, [address] [address] Nereyda Wong, PT 380 [place] [address] 01/29/2025 3:00 PM EDT Office Visit [address] [place] [address] Keren Poon, CLIENT FINANCE ANALYST [address] [place] [address] 02/01/2025 3:00 PM EDT Office Visit [address] [place] [address] Keren Poon, CLIENT FINANCE ANALYST [address] [place] [address] 03/02/2025 2:30 PM EST Office Visit [facility] [address] [place] [address] Dana Rucker ENROLLMENT MANAGEMENT VICE PRESIDENT [address] [address] [email or web address] Nereyda Wong, PT [address] [place] [address] [email or web address] 03/09/2025 2:30 PM EST Office Visit [facility] [address] [place] [address] Dana Ruckerley, [facility] [address] [address] [email or web address] Nereyda Wong, PT 380 [place] [address] [email or web address] 03/16/2025 2:30 PM EST Office Visit [address] [address] Dana Ruckerley, [facility] [address] [address] [email or web address] Nereyda Wong, PT 380 [place] [address] [email or web address] 06/03/2025 2:00 PM EST Office Visit [facility] [address] [place] [address] [place] [address] Keren Poon, CLIENT FINANCE ANALYST [address] [place] [address] documented as of this encounter Visit Diagnoses [...] documented as of this encounter Care Teams River Rafting Guide Relationship Specialty Start Date End Date Ita Pineda CNP 40 [place] [address] PCP - General Internal Medicine 08/19/20 09/17/22 Chavo Jack MD 40 [place] [address] PCP - General Internal Medicine 09/18/22 01/30/23 Keren Poon CNP [address] [place] [address], 2nd [place] [address] PCP - General Family Medicine 01/31/23 Cash Fernandes MD [address] [place] [address] Gastroenterology 08/23/20 Seven Menchaca MD 40 [place] [address] [email or web address] Insurance Assigned Provider 08/04/22 08/03/23 Chavo Jack MD 40 [place] [address] Insurance Assigned Provider 08/03/23 05/04/24 Willi Wells MD [address] [place] [address] Rheumatology 02/04/24 Jose Thakur MD [address] [place] [address] Reach Truck Operator Pulmonary Disease 03/17/24 Dana Rucker FNP 15 [facility], 2nd [place] [address] [email or web address] Nurse Practitioner Infectious Diseases 05/21/24 Jonathan Alvarez MD [address] [place] [address], [address] [place] [address] Urology 05/14/23 Anival Borja MD [address] [place] [address], [address] [place] [address] Neurologist Neurology 01/04/23 Lyndsay Reynoso FNP [address] [place] [address] Nurse Practitioner Pain Medicine 05/27/22 Gutierrez Pittman MD [address] [place] [address] Welding Foreman Cardiology 05/27/24 documented as of this encounter Additional Source Comments The information contained in this document represents components of the legal health record. It is not the complete legal health record.[facility]
--- OUTSIDE RECORDS SUMMARY | 2024-12-22 16:44 | XMS_ITS | Encounter Summary ---
Author Organization [facility] Address [address] [place] [address] Care Team Providers Care Audio Visual Project Manager Name Role Phone Cheryl Calderon MD Primary Care Provider [phone] Encounter Details Date Type Department Care Team (Late st Contact Info) Description 01/27/2019 Orders Only [facility] Hematology/Oncology 1 [facility] [address] [place] [address] Liliana Calderon, JULI 5 [place] [address] Social History Tobacco Use Types Packs/Day Years [...] 1:19 AM EDT Narrative Resulting Agency Comment [id number] Liliana Calderon NP LAB SAME DAY RESULT Final Result Performing Organization Address [facility] Co de Phone Number [facility] [address] [place] [address] * (ABNORMAL) FERRITIN (01/27/2019 3:23 PM EDT) Ferritin 687(H) 16 - 288 ng/mL [facility] 01/27/2019 3:23 PM EDT 01/28/2019 1:19 AM EDT Narrative Resulting Agency Comment [id number] Liliana Erazo MARKETING AMBASSADOR LABORATORY Final Result Performing Organization Address [facility] Co de Phone Number [facility] [address] [place] [address] * (ABNORMAL) IRON PROFILE (IRON/TIBC), SERUM (01/27/2019 3:23 PM EDT) Iron 14(L) 45 - 160 mcg/dL [facility] Iron binding capacity 223(L) 250 - 450 mcg/dL (calc) [facility] Iron saturation 6(L) 16 - 45 % (calc) [facility] 01/27/2019 3:23 PM EDT 01/28/2019 1:19 AM EDT Narrative Resulting Agency Comment [id number] Liliana Calderon MARKETING AMBASSADOR LABORATORY Final Result [facility] [address] [place] [address] documented in this encounter Visit Diagnoses Diagnosis Iron deficiency Iron deficiency anemia, unspecified Leukopenia, unspecified type Rheumatoid arthritis involving multiple sites with positive rheumatoid factor (HCC) documented in this encounter Care Teams Audio Visual Project Manager Relationship Specialty Start Date End Date Cheryl Calderon MD [facility] [address] [place] [address] PCP - General Internal Medicine 07/17/17 documented as of this encounter
--- OUTSIDE RECORDS SUMMARY | 2024-12-22 16:44 | XMS_ITS | Encounter Summary ---
Author Organization [facility] Address [address] [place] [address] Care Team Providers Care Stationary Fireman Name Role Phone Cheryl Calderon MD Primary Care Provider [phone] Encounter Details Date Type Department Care Team (Late st Contact Info) Description 09/30/2018 Orders Only [facility]. Rheumatology [address] [place] [phone] Melanie Aguirre MD Social History Tobacco Use [...] involving multiple sites with positive rheumatoid factor SM/DIRECTOR OF MEDICAL EDUCATION ANTIBODY Routine 09/30/2018 11:38 AM EDT Rheumatoid arthritis involving multiple sites with positive rheumatoid factor DIRECTOR OF MEDICAL EDUCATION ANTIBODY Routine 09/30/2018 11:38 AM EDT Rheumatoid [...] 9:04 PM EDT Narrative Resulting Agency Comment [id number] us Melanie Aguirre MD LABORATORY Final Result Performing Organization Address City/[facility] Hospital/ZIP Co de Phone Number [facility] [address] [place] [address] * (ABNORMAL) SJOGRENS SYNDROME ANTIBODIES (SSA AND SSB) (09/30/2018 11:38 AM EDT) Sjogrens syndrome-A extractable nuclear Ab 4.1 POS(A) <1.0 NEG AI [facility] Sjogrens syndrome-B extractable nuclear Ab <1.0 NEG <1.0 NEG AI [facility] 09/30/2018 11:3 8 AM EDT 09/30/2018 9:04 PM EDT Narrative Resulting Agency Comment [id number] us Melanie Aguirre MD LABORATORY Final Result Performing Organization Address [facility] Co de Phone Number [facility] [address] [place] [address] * (ABNORMAL) ERYTHROCYTE SEDIMENTATION RATE (ESR), WESTERGREN (09/30/2018 11:38 AM EDT) Sedimentation Rate West[place]ren (ESR) 45(H) < OR = 30 mm/h [facility] 09/30/2018 11:3 8 AM EDT 09/30/2018 9:04 PM EDT Narrative Resulting Agency Comment [id number] us Melanie Aguirre MD LAB SAME DAY RESULT Final Result Performing Organization Address City/[facility] Co de Phone Number [facility] [address] [place] [address] * DIRECTOR OF MEDICAL EDUCATION ANTIBODY (09/30/2018 11:38 AM EDT) Ribonucleoprotein extractable nuclear Ab <1.0 NEG <1.0 NEG AI [facility] 09/30/2018 11:3 8 AM EDT 09/30/2018 9:04 PM EDT Narrative Resulting Agency Comment [id number] us Melanie Aguirre MD LABORATORY Final Result [facility] [address] [place] [address] * QUANTIFERON-TB GOLD (09/30/2018 11:38 AM EDT) [...] T-lymphocytes. For additional information, please refer to https://education.[employer]/faq/OFG872 (This link is being provided for informational/ educational purposes only.) 09/30/2018 11:3 8 AM EDT 09/30/2018 9:04 PM EDT Narrative Resulting Agency Comment [id number] us Melanie Aguirre MD LABORATORY Final Result [facility] [address] [place] [address] * HEPATITIS C AB WITH REFLEX TO RNA PCR, SERUM (09/30/2018 11:38 AM EDT) Hepatitis C virus Ab NON-REACT MANOLO NON-REACT MANOLO [facility] Hepatitis C virus Ab Signal/Cutoff 0.01 <1.00 [facility] Comment: HCV antibody was non-reactive. There is no laboratory evidence of HCV infection. In most cases, no further action is required. However, if recent HCV exposure is suspected, a test for HCV RNA (test code 91240) is suggested. For additional information please refer to http://education.[employer]/faq/CBP19a6 (This link is being provided for informational/ educational purposes only.) 09/30/2018 11:3 8 AM EDT 09/30/2018 9:04 PM EDT Narrative Resulting Agency Comment [id number] us Melanie Aguirre MD LABORATORY Final Result Performing Organization Address [facility] Co de Phone Number [facility] [address] [place] [phone] * HEPATITIS B SURFACE ANTIGEN (09/30/2018 11:38 AM EDT) Hepatitis B virus surface Ag NON-REACTI VE NON-REACT MANOLO [facility] 09/30/2018 11:3 8 AM EDT 09/30/2018 9:04 PM EDT Narrative Resulting Agency Comment [id number] us Melanie Aguirre MD LABORATORY Final Result Performing Organization Address [facility] Phone Number [facility] [address] [place] [address] * (ABNORMAL) C-REACTIVE PROTEIN (CRP) - INFLAMMATION (09/30/2018 11:38 AM EDT) C reactive protein 10.9(H) <8.0 mg/L [facility] 09/30/2018 11:3 8 AM EDT 09/30/2018 9:04 PM EDT Narrative Resulting Agency Comment [id number] us Melanie Aguirre MD LABORATORY Final Result Performing Organization Address [facility] Co de Phone Number [facility] [address] [place] [address] * (ABNORMAL) COMPREHENSIVE METABOLIC PANEL WITH GFR [...] approximately 13% higher for people identified as -[place]er. EGFR 77 > OR = 60 mL/min/1 [...] needs for GFR calculation. Resulting Agency Comment [id number] us Melanie Aguirre MD LABORATORY Final Result Performing Organization Address City/[facility]/ZIP Co de Phone Number [facility] [address] [place] [address] * (ABNORMAL) CYCLIC CITRULLINATEDPEPTIDE CCP AB IGG (09/30/2018 11:38 AM EDT) Pathologist [facility] CCP Ab, IgG 45(H) UNITS [facility] Comment: Reference Range Negative: <20 Weak Positive: 20-39 Moderate Positive: 40-59 Strong Positive: >59 09/30/2018 11:3 8 AM EDT 09/30/2018 9:04 PM EDT Narrative Resulting Agency Comment [id number] us Melanie Aguirre MD LABORATORY Final Result Performing Organization Address [facility] de Phone Number [facility] [address] [place] [address] * (ABNORMAL) CBC INCLUDES DIFFERENTIAL AND PLATELET COUNT (09/30/2018 11:38 AM EDT) Pathologist [facility] WBC 7.4 3.8 - 10.8 Thousand/u L [...] 9:04 PM EDT Narrative Resulting Agency Comment [id number] us Melanie Aguirre MD LAB SAME DAY RESULT Final Result Performing Organization Address [facility] Co de Phone Number [facility] [address] [place] [address] * SM/DIRECTOR OF MEDICAL EDUCATION ANTIBODY (09/30/2018 11:38 AM EDT) Arevalo extractable nuclear Ab+Ribonucleopr otein extractable nuclear Ab <1.0 NEG <1.0 NEG AI [facility] 09/30/2018 11:3 8 AM EDT 09/30/2018 9:04 PM EDT Narrative Resulting Agency Comment [id number] us Melanie Aguirre MD LABORATORY Final Result Performing Organization Address [facility] de Phone Number [facility] [address] [place] [address] * DNA (DS) ANTIBODY (09/30/2018 11:38 AM EDT) Dna (DS) Antibody <1 IU/mL [facility] Comment: IU/mL Interpretation < or = 4 Negative 5-9 Indeterminate > or = 10 Positive 09/30/2018 11:3 8 AM EDT 09/30/2018 9:04 PM EDT Narrative Resulting Agency Comment [id number] us Melanie Aguirre MD LABORATORY Final Result Performing Organization Address [facility] de Phone Number [facility] [address] [place] [address] * PASTORA IFA, W/ REFLEX TO TITER/PATTERN/COMPREHENSIVE [...] for interpretation of all antibodies in the [place], prevalence, and association with diseases at http://education.[employer]/ faq/UUT819 09/30/2018 11:3 8 AM EDT 09/30/2018 9:04 PM EDT Narrative Resulting Agency Comment [id number] Melanie Aguirre MD LABORATORY Final Result [facility] [address] [place] [address] documented in this encounter Visit Diagnoses Diagnosis Rheumatoid arthritis involving multiple sites with positive rheumatoid factor (HCC) documented in this encounter Care Teams Stationary Fireman Relationship Specialty Start Date End Date Cheryl Calderon MD [facility] Adult Medicine [address] [place] [address] PCP - General Internal Medicine 07/17/17 documented as of this encounter
--- OUTSIDE RECORDS SUMMARY | 2024-12-22 16:44 | XMS_ITS | Encounter Summary ---
Author Organization [facility] Address [address] [place] [address] Care Team Providers Care Insulation Board Head Saw Operator Name Role Phone Cheryl Calderon MD Primary Care Provider [phone] Encounter Details Date Type Department Care Team (Late st Contact Info) Description 11/18/2018 Orders Only [facility] Hematology/Oncology [address] [facility] [address] [place] [phone] Liliana Calderon, JULI [address] [place] [address] Social History Tobacco Use Types Packs/Day Years [...] 12:14 AM EDT Narrative Resulting Agency Comment [id number] Liliana Calderon NP LABORATORY Final Result Performing Organization Address [facility] Co de Phone Number [facility] [address] [place] [address] * (ABNORMAL) FERRITIN (11/18/2018 3:38 PM EDT) Ferritin 634(H) 16 - 288 ng/mL [facility] 11/18/2018 3:38 PM EDT 11/19/2018 12:14 AM EDT Narrative Resulting Agency Comment [id number] Liliana Calderon NP LABORATORY Final Result Performing Organization Address City/[facility] Co de Phone Number [facility] [address] [place] [address] * LACTATE DEHYDROGENASE (LDH), SERUM (11/18/2018 3:38 PM EDT) Lactate dehydrogenase 156 120 - 250 U/L [facility] 11/18/2018 3:38 PM EDT 11/19/2018 12:14 AM EDT Narrative Resulting Agency Comment [id number] Liliana Calderon NP LABORATORY Final Result Performing Organization Address City/[facility]/ZIP Co de Phone Number [facility] [address] [place] [address] * (ABNORMAL) CBC INCLUDES DIFFERENTIAL AND PLATELET [...] 12:14 AM EDT Narrative Resulting Agency Comment [id number] Liliana Calderon POWER GENERATION PLANT OPERATOR LAB SAME DAY RESULT Final Result [facility] [address] [place] [address] documented in this encounter Visit Diagnoses Diagnosis Leukopenia, unspecified type Iron deficiency Iron deficiency anemia, unspecified documented in this encounter Care Teams Insulation Board Head Saw Operator Relationship Specialty Start Date End Date Cheryl Calderon MD [facility] Adult Medicine [address] [place] [address] PCP - General Internal Medicine 07/17/17 documented as of this encounter
--- OUTSIDE RECORDS SUMMARY | 2024-12-22 16:44 | XMS_ITS | Encounter Summary ---
Author Organization [facility] Address [address] [place] [address] Care Team Providers Care Crisis Therapist Name Role Phone Cheryl Calderon MD Primary Care Provider [phone] Reason for Visit * Reason Comments E-prescribing Refill Request Encounter Details Date Type Department Care Team (Late st Contact Info) Description 09/19/2017 Refill [facility] Rheumatology [address] [place] [address] Abel Feirro MD [address] [place] [address] E-prescribing Refill Request Social History Tobacco Use [...] Phone 01/16/18 1:00 PM Abel Fierro MD [facility] Rheumatology [phone] Pertinent lab results: Lab Results Component Value [...] ??? Elbow pain 06/03/2012 ??? Rheumatoid arthritis(714.0) ([facility]) 09/29/2010 Followed by rheumatology treated [...] AN EMPTY STOMACH 6 ??? Nystatin (NYSTOP) 969116 UNIT/GM Powder APPLY TO BUTTOCKS THREE TIMES [...] on filedocumented in this encounter Care Teams Crisis Therapist Relationship Specialty Start Date End Date Cheryl Calderon MD [facility] Adult Medicine [address] [place] [address] PCP - General Internal Medicine 07/17/17 documented as of this encounter
--- OUTSIDE RECORDS SUMMARY | 2024-12-22 16:44 | XMS_ITS | Encounter Summary ---
Author Organization [facility] Address [address] [place] [address] Phone Care Team Providers Care Rehabilitation Nurse Name Role Phone Jessicaroxanne Ita Mccrackengh [facility] Primary Care Provider Cash Fernandes MD Unavailable [phone] Seven Menchaca MD Unavailable [phone] Chavo Jack MD Primary Care Provider Keren Poon [facility] Primary Care Provid er Chavo Jack MD Unavailable Willi Wells MD Unavailable Unavailable Jose Thakur MD Unavailable [phone] Dana Rucker AUTOMOTIVE BRAKE SPECIALIST Unavailable [phone] Jonathan Alvarez MD Unavailable [phone] Anival Borja MD Unavailable Lyndsay Reynoso AUTOMOTIVE BRAKE SPECIALIST Unavailable Gutierrez Pittman MD Unavailable [phone] Encounter Details Date Type Department Care Team (Late st Contact Info) Description 02/21/2022 Procedure Pass [facility] Endoscopy Admitting Dept Virtual Department [address] [place] [id number] Social History Tobacco Use Types Packs/Day Years [...] high school, GED, job training, learning the [place] language, technical skills, or developing parenting skills)? [...] Description 12/25/2024 2:30 PM EDT Office Visit [facility] Infectious Diseases [address] [place] [address] Dana Rucker FNP [address] [address] 01/01/2025 1:00 PM EDT Office Visit [address] [address] Dana Rucker FNP [address] [address] Nereyda Wong, PT [address] [place] [address] 01/07/2025 2:30 PM EDT Office Visit [facility] Pulmonary, Allergy and Critical Care Medicine [address] [place] [address] Jose Thakur MD [address] [place] [address] 01/19/2025 2:30 PM EDT Office Visit [address] [address] Dana Rucker, AUTOMOTIVE BRAKE SPECIALIST [address] [address] Nereyda Wong, PT [address] [place] [address] 01/26/2025 2:30 PM EDT Office Visit [address] [address] Dana Rucker FNP [address] [address] Nereyda Wong, PT [address] [place] [address] 01/29/2025 3:00 PM EDT Office Visit [address] [place] [address] Keren Poon, HATCHERY MAN [address] [place] [address] 02/01/2025 3:00 PM EDT Office Visit [address] [place] [address] Keren Poon, HATCHERY MAN [address] [place] [address] 03/02/2025 2:30 PM EST Office Visit [address] [address] Dana Rucker, [address] [address] Nereyda Wong, PT [address] [place] [address] 03/09/2025 2:30 PM EST Office Visit [address] [address] Dana Rucker, [address] [address] Nereyda Wong, PT [address] [place] [address] 03/16/2025 2:30 PM EST Office Visit [facility] [address] [place] [address] Dana Rucker, AUTOMOTIVE BRAKE SPECIALIST 15 [facility], 2nd [place] [address] [email or web address] Nereyda Wong, PT [address] [place] [address] 06/03/2025 2:00 PM EST Office Visit [facility] [address] [place] [address] [place] [address] Keren Poon, HATCHERY MAN [address] [facility], 2nd [place] [address] [email or web address] documented as of this encounter Visit Diagnoses [...] documented as of this encounter Care Teams Rehabilitation Nurse Relationship Specialty Start Date End Date Ita PinedaORI [address] [place], [place] [email or web address] PCP - General Internal Medicine 08/19/20 09/17/22 Chavo Jack MD [address] [place], [place] PCP - General Internal Medicine 09/18/22 01/30/23 Keren Poon CNP [address] [place] [address], 2nd [place] [address] [email or web address] PCP - General Family Medicine 01/31/23 Cash Fernandes MD [address] [place] [address] [email or web address] Gastroenterology 08/23/20 Seven Menchaca MD [address] [place] [address] Insurance Assigned Provider 08/04/22 08/03/23 Chavo Jack MD [address] [place] [phone] Insurance Assigned Provider 08/03/23 05/04/24 Willi Wells MD [address] [place] [address] [place] [address] Rheumatology 02/04/24 Jose Thakur MD [address] [place] [address] Lens Generating Machine Tender Pulmonary Disease 03/17/24 Dana Rucker FNP 15 [facility], 2nd [place] [address] Nurse Practitioner Infectious Diseases 05/21/24 Jonathan Alvarez MD [address] [place] [address], [address] [place] [address] Urology 05/14/23 Anival Borja MD [address] [place] [address], [address] [place] [address] Neurologist Neurology 01/04/23 Lyndsay Reynoso FNP [address] [place] [address] Nurse Practitioner Pain Medicine 05/27/22 Gutierrez Pittman MD [address] [place] [address] Erp Project Manager Cardiology 05/27/24 documented as of this encounter Additional Source Comments The information contained in this document represents components of the legal health record. It is not the complete legal health record.[facility]
--- OUTSIDE RECORDS SUMMARY | 2024-12-22 16:45 | XMS_ITS | Encounter Summary ---
Author Organization [facility] Address [address] [place] [address] Care Team Providers Care Tank Truck Loader Name Role Phone Alberto Pacheco Primary Care Provider [phone] Charly Saxena Primary Care Provider [phone] Cheryl Calderon MD Primary Care Provider [phone] Reason for Visit * Reason Comments E-prescribing Refill Request Encounter Details Date Type Department Care Team (Late st Contact Info) Description 02/05/2012 Refill [facility] Rheumatology [address] [place] [address] Abel Fierro MD [address] [place] [address] E-prescribing Refill Request Social History Tobacco Use [...] on filedocumented in this encounter Care Teams Tank Truck Loader Relationship Specialty Start Date End Date Alberto Pacheco [address] [place] [phone] PCP - General 07/19/08 05/24/13 Charly Saxena [facility] [address] [place] [address] PCP - General Internal Medicine 05/25/13 07/16/17 Cheryl Calderon MD [facility] Medicine [address] [place] [address] PCP - General Internal Medicine 07/17/17 documented as of this encounter
--- OUTSIDE RECORDS SUMMARY | 2024-12-22 16:45 | XMS_ITS | Encounter Summary ---
Author Organization [facility] Address [address] [place] [address] Care Team Providers Care Special Librarian Name Role Phone Alberto Pacheco Primary Care Provider [phone] Charly Saxena Primary Care Provider [phone] Cheryl Calderon MD Primary Care Provider [phone] Encounter Details Date Type Department Care Team (Late st Contact Info) Description 01/18/2009 Orders Only [facility] Rheumatology [address] [place] [address] Abel Fierro MD [address] [place] [address] Social History Tobacco Use Types Packs/Day Years [...] RATE, ESTIMATED (EGFR) Routine 01/18/2009 Rheumatoid Arthritis ([facility]) Encounter for Long-Term (Current) Use of Other Medications SED RATE ESR Routine 01/18/2009 Rheumatoid Arthritis ([facility]) Encounter for Long-Term (Current) Use of Other Medications CBC 5 PART DIFF Routine 01/18/2009 Rheumatoid Arthritis ([facility]) Encounter for Long-Term (Current) Use of Other Medications ALANINE AMINOTRANSFERASE (ALT), SERUM Routine 01/18/2009 Rheumatoid Arthritis ([facility]) Encounter for Long-Term (Current) Use of Other Medications ASPARTATE AMINOTRANSFERASE (AST), SERUM Routine 01/18/2009 Rheumatoid Arthritis ([facility]) Encounter for Long-Term (Current) Use of Other Medications ALBUMIN Routine 01/18/2009 Rheumatoid Arthritis ([facility]) Encounter for Long-Term (Current) Use of [...] MD LABORATORY Final Result Performing Organization Address City/[facility] Co de Phone Number [facility] [address] [place] [address] * SED RATE ESR (01/18/2009) ESR (ERYTHROCYTE SEDIMENTATION RATE) 5 0 - 30 MM/HR [facility] 01/18/2009 01/18/2009 8:1 8 PM EDT us Abel Fierro MD LAB SAME DAY RESULT Final Resul t Performing Organization Address City/[facility]/ZIP Co de Phone Number [facility] [address] [place] [address] * ALBUMIN (01/18/2009) ALBUMIN 3.8 3.5 - 4.9 G/DL [facility] 01/18/2009 01/18/2009 8:1 8 PM EDT us Able Fierro MD LAB SAME DAY RESULT Final Resul t Performing Organization Address [facility] de Phone Number [facility] [address] [place] [address] * CREATININE WITH GLOMERULAR FILTRATION RATE, ESTIMATED [...] Resul t Performing Organization Address [facility] de Phone Number [facility] [address] [place] [address] * ALANINE AMINOTRANSFERASE (ALT), SERUM (01/18/2009) ALT (SGPT) 20 6 - 40 U/L [facility] 01/18/2009 01/18/2009 8:1 8 PM EDT us Abel Fierro MD LAB SAME DAY RESULT Final Resul t Performing Organization Address [facility] Co de Phone Number [facility] [address] [place] [address] * ASPARTATE AMINOTRANSFERASE (AST), SERUM (01/18/2009) AST (SGOT) 19 10 - 35 U/L [facility] 01/18/2009 01/18/2009 8:1 8 PM EDT us Abel Fierro MD LAB SAME DAY RESULT Final Resul t [facility] [address] [place] [address] * (ABNORMAL) CBC 5 PART DIFF (01/18/2009) [...] RESULT Final Resul t [facility] [address] [place] [address] documented in this encounter Visit Diagnoses Diagnosis Rheumatoid arthritis(714.0) Rheumatoid arthritis Encounter for long-term (current) use of other medications documented in this encounter Care Teams Special Librarian Relationship Specialty Start Date End Date Alberto Pacheco [address] [place] [address] PCP - General 07/19/08 05/24/13 Charly Saxena [facility] [place] [address] PCP - General Internal Medicine 05/25/13 07/16/17 Cheryl Calderon MD [facility] Adult Medicine [address] [place] [address] PCP - General Internal Medicine 07/17/17 documented as of this encounter
--- OUTSIDE RECORDS SUMMARY | 2024-12-22 16:45 | XMS_ITS | Encounter Summary ---
Author Organization [facility] Address [address] [place] [address] Phone Care Team Providers Care Torpedoman'S Mate Name Role Phone Cash Fernandes MD Unavailable [phone] Keren Poon [facility] Primary Care Provid er Wlili Wells MD Unavailable Unavailable Jose Thakur MD Unavailable [phone] Dana Rucker OUTSOLE HANDLER Unavailable [phone] Jonathan Alvarez MD Unavailable [phone] Anival Borja MD Unavailable [phone] Lyndsay Reynoso OUTSOLE HANDLER Unavailable Gutierrez Pittman MD Unavailable [phone] Encounter Details Date Type Department Care Team (Late st Contact Info) Description 07/10/2024 Procedure Pass [facility], Ct Scan - [address] [address] Social History Tobacco Use Types Packs/Day Years [...] 6:28 AM EDT Cecy العراقي RN * [place] Suicide Severity Rating Scale (Screener/Recent Self-Report) Question Answer Date of Assessment Author 1. Wish to be (Past 1 Month) No 07/10/2024 6:28 AM EDT Cecy Fontana RN 2. Non-Specific Active Suicidal Thoughts (Past 1 Month) No 07/10/2024 6:28 AM EDT Cecy Fontana, RENZO 6. Suicidal Behavior (Lifetime) No 07/10/2024 6:28 AM EDT Cecy Fontana RN documented as of this encounter Plan of Treatment Upcoming Encounters Date Type Department Care Team (Late st Contact Info) Description 12/25/2024 2:30 PM EDT Office Visit [facility] Infectious Diseases [address] [place] [address] Dana Rucker FNP [address] [address] 01/01/2025 1:00 PM EDT Office Visit [facility] [address] [place] [address] Dana Rucker FNP 15 [facility], [address] [place] [address] Nereyda Wong, PT 380 [place] [address] 01/07/2025 2:30 PM EDT Office Visit [facility] Pulmonary, Allergy and Critical Care Medicine 10 [facility] [place] [address] Jose Thakur MD 30 [place] [address] 01/19/2025 2:30 PM EDT Office Visit [facility] [address] [place] [address] Darnellens Dana Leslee, [facility] [address] [address] Nereyda Wong, PT 380 [place] [address] 01/26/2025 2:30 PM EDT Office Visit [facility] [address] [place] [address] Dana Rucker, [address] [address] Nereyda Wogn, PT 380 [place] [address] 01/29/2025 3:00 PM EDT Office Visit [address] [place] [address] Keren Poon, TOBACCO WAREHOUSE MANAGER [address] [address] 02/01/2025 3:00 PM EDT Office Visit [address] [place] [address] Keren Poon, ORI [address] [address] 03/02/2025 2:30 PM EST Office Visit [facility] [address] [place] [address] Dana Rucker, [facility] [address] [address] Nereyda Wong, PT 380 [place] [address] 03/09/2025 2:30 PM EST Office Visit [facility] [address] [place] [address] Dana Rucker, [facility] [address] [address] Nereyda Wong, PT 380 [place] [address] 03/16/2025 2:30 PM EST Office Visit [facility] [address] [place] [address] Dana Rucker, [address] [address] Nereyda Wong, PT 380 [place] [address] 06/03/2025 2:00 PM EST Office Visit [facility] [address] [place] [address] [place] [address] Keren Poon, ORI [address] [place] [address] [email or web address] documented as of this encounter Visit [...] documented as of this encounter Care Teams Torpedoman'S Mate Relationship Specialty Start Date End Date Keren Poon CNP [address] [place] [address] [email or web address] PCP - General Family Medicine 01/31/23 Cash Fernandes MD [address] [place] [address] [email or web address] [email or web address] Gastroenterology 08/23/20 Willi Wells MD [address] [place] [address] [place] [address] Rheumatology 02/04/24 Jose Thakur MD 30 [place] [address] [email or web address] Merchant Miller Pulmonary Disease 03/17/24 Dana Rucker FNP [address] [address] [email or web address] Nurse Practitioner Infectious Diseases 05/21/24 [place] [address] [place] [address], [address] [place] [address] [email or web address] Urology 05/14/23 Anival Borja MD [address] [place] [address], [address] [place] [address] [email or web address] Neurologist Neurology 01/04/23 Lyndsay Reynoso FNP [address] [place] [address] Nurse Practitioner Pain Medicine 05/27/22 Gutierrez Pittman MD 40 [place] [address] [employer] Cardiology 05/27/24 documented as of this encounter Additional Source Comments The information contained in this document represents components of the legal health record. It is not the complete legal health record.[facility]
--- OUTSIDE RECORDS SUMMARY | 2024-12-22 16:45 | XMS_ITS | Encounter Summary ---
Author Organization [facility] Address 5 [place] [address] Care Team Providers Care Mental Health Nurse Practitioner Name Role Phone Alberto Pacheco Primary Care Provider [phone] Charly Saxena Primary Care Provider [phone] Cheryl Calderon MD Primary Care Provider Encounter Details Date Type Department Care Team (Late st Contact Info) Description 10/18/2011 Orders Only [facility] Rheumatology [address] [place] [address] Abel Fierro MD 5 [place] [address] Social History Tobacco Use Types Packs/Day Years [...] - 1.05 mg/dL [facility] Comment: {CREATININE {[id number]) For patients >49 years of age, the reference limit for Creatinine is approximately 13% higher for people identified as -Tanzanian. GFR 80 > OR = 60 mL/min/1. 73m2 [facility] Comment:{eGFR NON-AFR. AMERI CAN {[id number]) GFR () 93 > OR = 60 mL/min/1. 73m2 [facility] Comment:{eGFR AMERIC AN {[id number]) 10/18/2011 4:28 PM EDT 10/18/2011 8:48 PM [...] needs for GFR calculation. Resulting Agency Comment [id number] us Abel Fierro MD LAB SAME DAY RESULT Final Resul t [facility] [address] [place] [address] * ALANINE AMINOTRANSFERASE (ALT), SERUM (10/18/2011 4:28 PM EDT) ALT (SGPT) 24 6 - 40 U/L [facility] Comment:{ALT {[id number]) 10/18/2011 4:28 PM EDT 10/18/2011 8:48 PM EDT Narrative Resulting Agency Comment [id number] Abel Fierro MD LAB SAME DAY RESULT Final Resul t Performing Organization Address City/[facility] Co de Phone Number [facility] [address] [place] [address] * ASPARTATE AMINOTRANSFERASE (AST), SERUM (10/18/2011 4:28 PM EDT) Pathologist [facility] AST (SGOT) 27 10 - 35 U/L [facility] Comment:{AST {[id number]) 10/18/2011 4:28 PM EDT 10/18/2011 8:48 PM EDT Narrative Resulting Agency Comment [id number] Abel Fierro MD LAB SAME DAY RESULT Final Resul t Performing Organization Address [facility] de Phone Number [facility] [address] [place] [address] * (ABNORMAL) CBC INCLUDES DIFFERENTIAL AND PLATELET COUNT (10/18/2011 4:28 PM EDT) Pathologist [facility] WBC 7.2 3.8 - 10.8 Thousand/ uL [facility] Comment:{WHITE BLOOD CELL CO UNT {[id number]) RBC 5.34(H) 3.80 - 5.10 Million/u L [facility] Comment:{RED BLOOD CELL COUN T {[id number]) Hemoglobin 15.0 11.7 - 15.5 g/dL [facility] Comment:{HEMOGLOBIN {[id number]) Hematocrit 46.3(H) 35.0 - 45.0 % [facility] Comment:{HEMATOCRIT {[id number]) MCV 86.6 80.0 - 100.0 fL [facility] Comment:{MCV {[id number]) MCH 28.1 27.0 - 33.0 pg [facility] Comment:{MCH {[id number]) MCHC 32.5 32.0 - 36.0 g/dL [facility] Comment:{MCHC {[id number]) RDW 14.4 11.0 - 15.0 % [facility] Comment:{RDW {[id number]) PLT 254 140 - 400 Thousand/ uL [facility] Comment:{PLATELET COUNT {[id number]) MPV 8.4 7.5 - 11.5 fL [facility] Comment:{MPV {[id number]) Neutrophils # 3226 1500 - 7800 cells/uL [facility] Comment:{ABSOLUTE NEUTROPHIL S {[id number]) Lymphocytes # 2988 850 - 3900 cells/uL [facility] Comment:{ABSOLUTE LYMPHOCYTE S {[id number]) Monocytes # 893 200 - 950 cells/uL [facility] Comment:{ABSOLUTE MONOCYTES {[id number]) Eosinophils # 65 15 - 500 cells/uL [facility] Comment:{ABSOLUTE EOSINOPHIL S {[id number]) Basophils # 29 0 - 200 cells/uL [facility] Comment:{ABSOLUTE BASOPHILS {[id number]) Neutrophils % 44.8 % [facility] Comment:{NEUTROPHILS {[id number]) Lymphocytes % 41.5 % [facility] Comment:{LYMPHOCYTES {[id number]) Monocytes % 12.4 % [facility] Comment:{MONOCYTES {[id number]) Eosinophils % 0.9 % [facility] Comment:{EOSINOPHILS {[id number]) Basophils % 0.4 % [facility] Comment:{BASOPHILS {[id number]) 10/18/2011 4:28 PM EDT 10/18/2011 8:48 PM EDT Narrative Resulting Agency Comment [id number] us Abel Fierro MD LAB SAME DAY RESULT Final Resul t [facility] [address] [place] [address] documented in this encounter Visit Diagnoses Diagnosis Rheumatoid arthritis(714.0) Rheumatoid arthritis documented in this encounter Care Teams Mental Health Nurse Practitioner Relationship Specialty Start Date End Date Alberto Pacheco [address] [place] [address] PCP - General 07/19/08 05/24/13 Charly Saxena [facility] [address] [place] [address] PCP - General Internal Medicine 05/25/13 07/16/17 Cheryl Calderon MD [facility] Adult Medicine [address] [place] [address] PCP - General Internal Medicine 07/17/17 documented as of this encounter
--- OUTSIDE RECORDS SUMMARY | 2024-12-22 16:45 | XMS_ITS | Encounter Summary ---
Author Organization [facility] Address [address] [place] [address] Care Team Providers Care Buckle Sorter Name Role Phone Alberto Pacheco Primary Care Provider [phone] Charly Saxena Primary Care Provider [phone] Cheryl Calderon MD Primary Care Provider [phone] Encounter Details Date Type Department Care Team (Late st Contact Info) Description 09/02/2009 Orders Only [facility] Rheumatology [address] [place] [address] Abel Fierro MD 5 [place] [address] Social History Tobacco Use Types Packs/Day Years [...] RESULT Final Resul t Performing Organization Address [facility] de Phone Number [facility] [address] [place] [address] * ASPARTATE AMINOTRANSFERASE (AST), SERUM (09/02/2009) AST (SGOT) 24 10 - 35 U/L [facility] 09/02/2009 09/02/2009 9:5 7 PM EDT us Abel Fierro MD LAB SAME DAY RESULT Final Resul t Performing Organization Address [facility] Phone Number [facility] [address] [place] [address] * CREATININE WITH GLOMERULAR FILTRATION RATE, ESTIMATED [...] Co de Phone Number [facility] [address] [place] [address] * (ABNORMAL) CBC 5 PART DIFF (09/02/2009) [...] Co de Phone Number [facility] [address] [place] [address] documented in this encounter Visit Diagnoses Diagnosis Rheumatoid arthritis(714.0) Rheumatoid arthritis documented in this encounter Care Teams Buckle Sorter Relationship Specialty Start Date End Date Alberto Pacheco [address] [place] [address] PCP - General 07/19/08 05/24/13 Charly Saxena [facility] [address] [place] [address] PCP - General Internal Medicine 05/25/13 07/16/17 Cheryl Calderon MD [facility] Medicine [address] [place] [address] PCP - General Internal Medicine 07/17/17 documented as of this encounter
--- OUTSIDE RECORDS SUMMARY | 2024-12-22 16:45 | XMS_ITS | Encounter Summary ---
Author Organization [facility] Address [address] [place] [address] Care Team Providers Care Lunch Wagon Operator Name Role Phone Alberto Pacheco Primary Care Provider [phone] Charly Saxena Primary Care Provider Cheryl Calderon MD Primary Care Provider [phone] Encounter Details Date Type Department Care Team (Late st Contact Info) Description 05/13/2009 Orders Only [facility] Rheumatology [address] [place] [address] Abel Fierro MD 5 [place] [address] Social History Tobacco Use Types Packs/Day Years [...] MD LABORATORY Final Result [facility] [address] [place] [address] * SED RATE ESR (05/13/2009) ESR (ERYTHROCYTE SEDIMENTATION RATE) 19 0 - 30 MM/HR [facility] 05/13/2009 05/13/2009 8:0 1 PM EST us Abel Fierro MD LAB SAME DAY RESULT Final Resul t Performing Organization Address [facility] de Phone Number [facility] [address] [place] [address] * ALANINE AMINOTRANSFERASE (ALT), SERUM (05/13/2009) ALT (SGPT) 22 6 - 40 U/L [facility] 05/13/2009 05/13/2009 8:0 1 PM EST us Abel Fierro MD LAB SAME DAY RESULT Final Resul t Performing Organization Address [facility] Phone Number [facility] [address] [place] [address] * ASPARTATE AMINOTRANSFERASE (AST), SERUM (05/13/2009) AST (SGOT) 21 10 - 35 U/L [facility] 05/13/2009 05/13/2009 8:0 1 PM EST us Abel Fierro MD LAB SAME DAY RESULT Final Resul t Performing Organization Address [facility] Phone Number [facility] [address] [place] [address] * (ABNORMAL) CBC 5 PART DIFF (05/13/2009) [...] RESULT Final Resul t [facility] [address] [place] [address] documented in this encounter Visit Diagnoses Diagnosis Rheumatoid arthritis(714.0) Rheumatoid arthritis documented in this encounter Care Teams Lunch Wagon Operator Relationship Specialty Start Date End Date Alberto Pacheco [address] [place] [address] PCP - General 07/19/08 05/24/13 Charly Saxena [facility] [address] [place] [address] PCP - General Internal Medicine 05/25/13 07/16/17 Cheryl Calderon MD [facility] Adult Medicine [address] [place] [address] PCP - General Internal Medicine 07/17/17 documented as of this encounter
--- OUTSIDE RECORDS SUMMARY | 2024-12-22 16:45 | XMS_ITS | Encounter Summary ---
Author Organization [facility] Address [address] [place] [address] Care Team Providers Care Hand Brush Filler Name Role Phone Alberto Pacheco Primary Care Provider [phone] Charly Saxena Primary Care Provider Cheryl Calderon MD Primary Care Provider [phone] Reason for Visit * Reason Comments E-prescribing Refill Request Encounter Details Date Type Department Care Team (Late st Contact Info) Description 08/21/2010 Refill [facility] Rheumatology [address] [place] [address] Abel Fierro MD [address] [place] [address] E-prescribing Refill Request Social History Tobacco Use [...] filedocumented in this encounter Care Teams Hand Brush Filler Relationship Specialty Start Date End Date Alberto Pacheco [address] [place] [address] PCP - General 07/19/08 05/24/13 Charly Saxena [facility] [address] [place] [address] PCP - General Internal Medicine 05/25/13 07/16/17 Cheryl Calderon MD [facility] Medicine [address] [place] [address] PCP - General Internal Medicine 07/17/17 documented as of this encounter
--- OUTSIDE RECORDS SUMMARY | 2024-12-22 16:45 | XMS_ITS | Encounter Summary ---
Author Organization [facility] Address [address] [place] [address] Care Team Providers Care Fulfillment Representative Name Role Phone Alberto Pacheco Primary Care Provider [phone] Charly Saxena Primary Care Provider [phone] Cheryl Calderon MD Primary Care Provider [phone] Encounter Details Date Type Department Care Team (Late st Contact Info) Description 08/21/2010 Orders Only [facility] Rheumatology [address] [place] [address] Abel Fierro MD 5 [place] [address] Social History Tobacco Use Types Packs/Day Years [...] RESULT Final Resul t Performing Organization Address [facility] Co de Phone Number [facility] [address] [place] [address] * ALANINE AMINOTRANSFERASE (ALT), SERUM (08/21/2010) ALT (SGPT) 37 6 - 40 U/L [facility] 08/21/2010 08/21/2010 9:0 1 PM EDT us Abel Fierro MD LAB SAME DAY RESULT Final Resul t Performing Organization Address City/[facility] Co de Phone Number [facility] [address] [place] [address] * ASPARTATE AMINOTRANSFERASE (AST), SERUM (08/21/2010) AST (SGOT) 27 10 - 35 U/L [facility] 08/21/2010 08/21/2010 9:0 1 PM EDT us Abel Fierro MD LAB SAME DAY RESULT Final Resul t Performing Organization Address City/[facility]/ZIP Co de Phone Number [facility] [address] [place] [address] * (ABNORMAL) CBC 5 PART DIFF (08/21/2010) [...] Co de Phone Number [facility] [address] [place] [address] documented in this encounter Visit Diagnoses Diagnosis Rheumatoid arthritis(714.0) Rheumatoid arthritis documented in this encounter Care Teams Fulfillment Representative Relationship Specialty Start Date End Date Alberto Pacheco [address] [place] [address] PCP - General 07/19/08 05/24/13 Charly Saxena [facility] [address] [place] [address] PCP - General Internal Medicine 05/25/13 07/16/17 Cheryl Calderon MD [facility] Medicine [address] [place] [address] PCP - General Internal Medicine 07/17/17 documented as of this encounter
--- OUTSIDE RECORDS SUMMARY | 2024-12-22 16:45 | XMS_ITS | Encounter Summary ---
Author Organization [facility] Address [address] [place] [address] Phone Care Team Providers Care Abrasive Sawyer Name Role Phone Cash Fernandes MD Unavailable [phone] Keren Poon [facility] Primary Care Provid er Willi Wells MD Unavailable Unavailable Jose Thakur MD Unavailable Dana Rucker PAYROLL EXAMINER Unavailable [phone] Jonathan Alvarez MD Unavailable [phone] Anival Borja MD Unavailable Lyndsay Reynoso PAYROLL EXAMINER Unavailable Gutierrez Pittman MD Unavailable [phone] Encounter Details Date Type Department Care Team (Late st Contact Info) Description 05/13/2024 Procedure Pass [facility]oscopy Admitting Dept Virtual Department [address] [place], [place] [id number] Social History Tobacco Use Types Packs/Day Years [...] Description 12/25/2024 2:30 PM EDT Office Visit [facility] Infectious Diseases [address] [place] [address] Dana Rucker FNP [address] [place] [address] 01/01/2025 1:00 PM EDT Office Visit [facility] [address] [place] [address] Dana Rucker FNP [address] [place] [address] Nereyda Wong, PT [address] [place] [address] 01/07/2025 2:30 PM EDT Office Visit [facility] Pulmonary, Allergy and Critical Care Medicine 10 [facility] [place], [place] [phone] Jose Thakur MD 30 [place] [address] 01/19/2025 2:30 PM EDT Office Visit [facility] [address] [place] [address] Dana Ruckerley, [facility], [address] [place] [address] Nereyda Wong, PT [address] [place] [address] 01/26/2025 2:30 PM EDT Office Visit [facility] [address] [place] [address] Dana Rucker, [facility], [address] [place] [address] Nereyda Wong, PT [address] [place] [address] 01/29/2025 3:00 PM EDT Office Visit [address] [place] [address] Keren Poon, GEOMETRY TUTOR [address] [address] 02/01/2025 3:00 PM EDT Office Visit [address] [place] [address] Keren Poon, GEOMETRY TUTOR [address] [place] [address] 03/02/2025 2:30 PM EST Office Visit [facility] [address] [place] [address] Dana Rucker, [facility], [address] [place] [address] Nereyda Wong, PT [address] [place] [address] [email or web address] 03/09/2025 2:30 PM EST Office Visit [facility] [address] [place] [address] Dana Rucker, [facility] [address] [address] Nereyda Wong, PT [address] [place] [address] 03/16/2025 2:30 PM EST Office Visit [facility] [address] [place] [address] Dana Rucker, [facility] [address] [address] Nereyda Wong, PT [address] [place] [address] 06/03/2025 2:00 PM EST Office Visit [facility] [address] [place] [address] [place] [address] Keren Poon, GEOMETRY TUTOR [address] [place] [address] [email or web address] documented [...] documented as of this encounter Care Teams Abrasive Sawyer Relationship Specialty Start Date End Date Keren Poon CNP [address] [place] [address], [address] [place] [address] [email or web address] PCP - General Family Medicine 01/31/23 Cash Fernandes MD [address] [place] [address] [email or web address] Gastroenterology 08/23/20 Willi Wells MD [address] [place] [address] [place] [address] Rheumatology 02/04/24 Jose Thakur MD [address] [place] [address] [email or web address] Felled Seam Operator Pulmonary Disease 03/17/24 Dana Rucker FNP [address] [address] [email or web address] Nurse Practitioner Infectious Diseases 05/21/24 Jonathan Alvarez MD [address] [place] [address], [address] [place] [address] [email or web address] Urology 05/14/23 Anival Borja MD [address] [place] [address], [address] [place] [address] [email or web address] Neurologist Neurology 01/04/23 Lyndsay Reynoso FNP [address] [address] Nurse Practitioner Pain Medicine 05/27/22 Gutierrez Pittman MD [address] [place] [address] [facility] 05/27/24 documented as of this encounter Additional Source Comments The information contained in this document represents components of the legal health record. It is not the complete legal health record.[facility]
--- OUTSIDE RECORDS SUMMARY | 2024-12-22 16:45 | XMS_ITS | Encounter Summary ---
Author Organization [facility] Address [address] [place] [address] Care Team Providers Care Lard Maker Name Role Phone Alberto Pacheco Primary Care Provider [phone] Unknown Pcp, Non Rmg Primary Care Provider Unava ilCharly Antoine Primary Care Provider [phone] Charly Saxena Primary Care Provider Cheryl Calderon MD Primary Care Provider [phone] Encounter Details Date Type Department Care Team (Late st Contact Info) Description 11/15/2006 Orders Only [facility] Rheumatology [address] [place] [address] Abel Fierro MD [address] [place] [address] Social History Tobacco Use Types Packs/Day Years [...] documented in this encounter Care Teams Lard Maker Relationship Specialty Start Date End Date Alberto Pacheco [address] [place] [address] PCP - General 07/19/08 05/24/13 Unknown Pcp, Non Rmg PCP - General 06/30/08 07/18/08 Charly Saxena [facility] [address] [place] [address] PCP - General 01/18/06 06/29/08 Charly Saxena [facility] [address] [place] [address] PCP - General Internal Medicine 05/25/13 07/16/[address] [facility] Adult Medicine [address] [place] [address] PCP - General Internal Medicine 07/17/17 documented as of this encounter
--- OUTSIDE RECORDS SUMMARY | 2024-12-22 16:45 | XMS_ITS | Encounter Summary ---
Author Organization [facility] Address [address] [place] [address] Care Team Providers Care Bar Gauger And Lubricator Tender Name Role Phone Alberto Pacheco Primary Care Provider [phone] Charly Saxena Primary Care Provider [phone] Cheryl Calderon MD Primary Care Provider [phone] Encounter Details Date Type Department Care Team (Late st Contact Info) Description 08/15/2011 Orders Only [facility] Rheumatology [address] [place] [address] Abel Fierro MD [address] [place] [address] Social History Tobacco Use Types Packs/Day Years [...] this encounter Procedures * Due to [place] [employer] law, this organization might not be sharing negative HIV tests. Procedure Name Priority Date/Time Associated Diagnosis Comments C-REACTIVE PROTEIN (CRP) - INFLAMMATION Routine 08/15/2011 10:22 AM EDT Rheumatoid arthritis (HCC) ERYTHROCYTE SEDIMENTATION RATE (ESR) Routine 08/15/2011 10:22 AM EDT Rheumatoid arthritis ([facility]) CBC INCLUDES DIFFERENTIAL AND PLATELET COUNT Routine 08/15/2011 10:22 AM EDT Rheumatoid arthritis ([facility]) ALANINE AMINOTRANSFERASE (ALT), SERUM Routine 08/15/2011 10:22 AM EDT Rheumatoid arthritis ([facility]) ASPARTATE AMINOTRANSFERASE (AST), SERUM Routine 08/15/2011 10:22 AM EDT Rheumatoid arthritis ([facility]) CREATININE WITH GLOMERULAR FILTRATION RATE, ESTIMATED (EGFR) Routine 08/15/2011 10:22 AM EDT Rheumatoid arthritis ([facility]) documented in this encounter Results * Due to [place] [employer] law, this organization might not be sharing negative HIV tests. * ERYTHROCYTE SEDIMENTATION RATE (ESR)KUNAL (08/15/2011 10:22 AM EDT) Sedimentation Rate Rockegren (ESR) 6 < OR = 30 mm/h [facility] Comment:{SED RATE BY JONATHAN SYED {[id number]) 08/15/2011 10:2 2 AM EDT 08/15/2011 5:01 PM EDT Narrative Resulting Agency Comment [id number] us Abel Fierro MD LAB SAME DAY RESULT Final Resul t Performing Organization Address [facility] Co de Phone Number [facility] [address] [place] [address] * C-REACTIVE PROTEIN (CRP) - INFLAMMATION (08/15/2011 10:22 AM EDT) C reactive protein 0.15 <0.80 mg/dL [facility] Comment: {C-REACTIVE PROTEIN {[id number]) Please be advised that patients taking Carboxypenicillins may exhibit falsely decreased C-Reactive Protein levels due to an analytical interference in this assay. 08/15/2011 10:2 2 AM EDT 08/15/2011 5:01 PM EDT Narrative Resulting Agency Comment [id number] us Abel Fierro MD LABORATORY Final Result Performing Organization Address [facility] Co de Phone Number [facility] [address] [place] [address] * CREATININE WITH GLOMERULAR FILTRATION RATE, ESTIMATED (EGFR) (08/15/2011 10:22 AM EDT) Creatinine 0.87 0.50 - 1.05 mg/dL [facility] Comment: {CREATININE {[id number]) For patients >49 years of age, the reference limit for Creatinine is approximately 13% higher for people identified as -Kyrgyz. GFR 74 > OR = 60 mL/min/1. 73m2 [facility] Comment:{eGFR NON-AFR. AMERI CAN {[id number]) GFR () 86 > OR = 60 mL/min/1. 73m2 [facility] Comment:{eGFR AMERIC AN {[id number]) 08/15/2011 10:2 2 AM EDT 08/15/2011 5:01 [...] needs for GFR calculation. Resulting Agency Comment [id number] us Abel Fierro MD LAB SAME DAY RESULT Final Resul t [facility] [address] [place] [address] * (ABNORMAL) CBC INCLUDES DIFFERENTIAL AND PLATELET COUNT (08/15/2011 10:22 AM EDT) WBC 7.5 3.8 - 10.8 Thousand/ uL [facility] Comment:{WHITE BLOOD CELL CO UNT {[id number]) RBC 5.26(H) 3.80 - 5.10 Million/u L [facility] Comment:{RED BLOOD CELL COUN T {[id number]) Hemoglobin 14.6 11.7 - 15.5 g/dL [facility] Comment:{HEMOGLOBIN {[id number]) Hematocrit 44.5 35.0 - 45.0 % [facility] Comment:{HEMATOCRIT {[id number]) MCV 84.7 80.0 - 100.0 fL [facility] Comment:{MCV {[id number]) MCH 27.8 27.0 - 33.0 pg [facility] Comment:{MCH {[id number]) MCHC 32.8 32.0 - 36.0 g/dL [facility] Comment:{MCHC {[id number]) RDW 14.8 11.0 - 15.0 % [facility] Comment:{RDW {[id number]) PLT 238 140 - 400 Thousand/ uL [facility] Comment:{PLATELET COUNT {[id number]) MPV 8.4 7.5 - 11.5 fL [facility] Comment:{MPV {[id number]) Neutrophils # 4643 1500 - 7800 cells/uL [facility] Comment:{ABSOLUTE NEUTROPHIL S {[id number]) Lymphocytes # 2265 850 - 3900 cells/uL [facility] Comment:{ABSOLUTE LYMPHOCYTE S {[id number]) Monocytes # 360 200 - 950 cells/uL [facility] Comment:{ABSOLUTE MONOCYTES {[id number]) Eosinophils # 203 15 - 500 cells/uL [facility] Comment:{ABSOLUTE EOSINOPHIL S {[id number]) Basophils # 30 0 - 200 cells/uL [facility] Comment:{ABSOLUTE BASOPHILS {[id number]) Neutrophils % 61.9 % [facility] Comment:{NEUTROPHILS {[id number]) Lymphocytes % 30.2 % [facility] Comment:{LYMPHOCYTES {[id number]) Monocytes % 4.8 % [facility] Comment:{MONOCYTES {[id number]) Eosinophils % 2.7 % [facility] Comment:{EOSINOPHILS {[id number]) Basophils % 0.4 % [facility] Comment:{BASOPHILS {[id number]) 08/15/2011 10:2 2 AM EDT 08/15/2011 5:01 PM EDT Narrative Resulting Agency Comment [id number] us Abel Fierro MD LAB SAME DAY RESULT Final Resul t Performing Organization Address City/[facility] Co de Phone Number [facility] [address] [place] [address] * ALANINE AMINOTRANSFERASE (ALT), SERUM (08/15/2011 10:22 AM EDT) ALT (SGPT) 25 6 - 40 U/L [facility] Comment:{ALT {[id number]) 08/15/2011 10:2 2 AM EDT 08/15/2011 5:01 PM EDT Narrative Resulting Agency Comment [id number] us Abel Fierro MD LAB SAME DAY RESULT Final Resul t Performing Organization Address City/[facility]/ZIP Co de Phone Number [facility] [address] [place] [address] * ASPARTATE AMINOTRANSFERASE (AST), SERUM (08/15/2011 10:22 AM EDT) AST (SGOT) 25 10 - 35 U/L [facility] Comment:{AST {[id number]) 08/15/2011 10:2 2 AM EDT 08/15/2011 5:01 PM EDT Narrative Resulting Agency Comment [id number] us Abel Fierro MD LAB SAME DAY RESULT Final Resul t [facility] [address] [place] [address] documented in this encounter Visit Diagnoses Diagnosis Rheumatoid arthritis(714.0) Rheumatoid arthritis documented in this encounter Care Teams Bar Gauger And Lubricator Tender Relationship Specialty Start Date End Date Alberto Pacheco [address] [place] [address] PCP - General 07/19/08 05/24/13 Charly Saxena [facility] [address] [place] [address] PCP - General Internal Medicine 05/25/13 07/16/17 Cheryl Calderon MD [facility] Medicine [address] [place] [address] PCP - General Internal Medicine 07/17/17 documented as of this encounter
--- OUTSIDE RECORDS SUMMARY | 2024-12-22 16:45 | XMS_ITS | Encounter Summary ---
Author Organization [facility] Address [address] [place] [address] Care Team Providers Care Sales Product Specialist Name Role Phone Alberto Pacheco Primary Care Provider [phone] Charly Saxena Primary Care Provider [phone] Cheryl Calderon MD Primary Care Provider [phone] Encounter Details Date Type Department Care Team (Late st Contact Info) Description 12/26/2010 Orders Only [facility] Rheumatology [address] [place] [address] Abel Fierro MD [address] [place] [address] Social History Tobacco Use Types Packs/Day Years [...] [facility] Comment:{WHITE BLOOD CELL CO UNT {[id number]) RBC 5.17(H) 3.80 - 5.10 Million/u L [facility] Comment:{RED BLOOD CELL COUN T {[id number]) Hemoglobin 15.0 11.7 - 15.5 g/dL [facility] Comment:{HEMOGLOBIN {[id number]) Hematocrit 46.0(H) 35.0 - 45.0 % [facility] Comment:{HEMATOCRIT {[id number]) MCV 89.1 80.0 - 100.0 fL [facility] Comment:{MCV {[id number]) MCH 29.0 27.0 - 33.0 pg [facility] Comment:{MCH {[id number]) MCHC 32.5 32.0 - 36.0 g/dL [facility] Comment:{MCHC {[id number]) RDW 16.1(H) 11.0 - 15.0 % [facility] Comment:{RDW {[id number]) PLT 300 140 - 400 Thousand/ uL [facility] Comment:{PLATELET COUNT {[id number]) MPV 7.6 7.5 - 11.5 fL [facility] Comment:{MPV {[id number]) Neutrophils # 7707 1500 - 7800 cells/uL [facility] Comment:{ABSOLUTE NEUTROPHIL S {[id number]) Lymphocytes # 2163 850 - 3900 cells/uL [facility] Comment:{ABSOLUTE LYMPHOCYTE S {[id number]) Monocytes # 452 200 - 950 cells/uL [facility] Comment:{ABSOLUTE MONOCYTES {[id number]) Eosinophils # 147 15 - 500 cells/uL [facility] Comment:{ABSOLUTE EOSINOPHIL S {[id number]) Basophils # 32 0 - 200 cells/uL [facility] Comment:{ABSOLUTE BASOPHILS {[id number]) Neutrophils % 73.4 % [facility] Comment:{NEUTROPHILS {[id number]) Lymphocytes % 20.6 % [facility] Comment:{LYMPHOCYTES {[id number]) Monocytes % 4.3 % [facility] Comment:{MONOCYTES {[id number]) Eosinophils % 1.4 % [facility] Comment:{EOSINOPHILS {[id number]) Basophils % 0.3 % [facility] Comment:{BASOPHILS {[id number]) 12/26/2010 9:49 AM EDT 12/27/2010 12:33 AM EDT Narrative Resulting Agency Comment [id number] us Abel Fierro MD LAB SAME DAY RESULT Final Resul t Performing Organization Address [facility] Co de Phone Number [facility] [address] [place] [address] * ALANINE AMINOTRANSFERASE (ALT), SERUM (12/26/2010 9:49 AM EDT) ALT (SGPT) 16 6 - 40 U/L [facility] Comment:{ALT {[id number]) 12/26/2010 9:49 AM EDT 12/27/2010 12:33 AM EDT Narrative Resulting Agency Comment [id number] us Abel Fierro MD LAB SAME DAY RESULT Final Resul t Performing Organization Address City/[facility] Co de Phone Number [facility] [address] [place] [address] * ASPARTATE AMINOTRANSFERASE (AST), SERUM (12/26/2010 9:49 AM EDT) AST (SGOT) 16 10 - 35 U/L [facility] Comment:{AST {[id number]) 12/26/2010 9:4 9 AM EDT 12/27/2010 12:33 AM EDT Narrative Resulting Agency Comment [id number] us Abel Fierro MD LAB SAME DAY RESULT Final Resul t Performing Organization Address [facility] Co de Phone Number [facility] [address] [place] [address] * CREATININE WITH GLOMERULAR FILTRATION RATE, ESTIMATED (EGFR) (12/26/2010 9:49 AM EDT) Creatinine 0.86 0.60 - 1.10 mg/dL [facility] Comment:{CREATININE {[id number]) GFR 76 > OR = 60 mL/min/1.7 3m2 [facility] Comment:{eGFR NON-AFR. AMERI CAN {[id number]) GFR () 88 > OR = 60 mL/min/1.7 3m2 [facility] Comment:{eGFR AMERIC AN {[id number]) 12/26/2010 9:49 AM EDT 12/27/2010 12:33 AM [...] Final Resul t Performing Organization Address City/[facility] Co de Phone Number [facility] [address] [place] [address] documented in this encounter Visit Diagnoses Diagnosis Rheumatoid arthritis(714.0) Rheumatoid arthritis documented in this encounter Care Teams Sales Product Specialist Relationship Specialty Start Date End Date Alberto Pacheco [address] [place] [address] PCP - General 07/19/08 05/24/13 Charly Saxena [facility] [address] [place] [address] PCP - General Internal Medicine 05/25/13 07/16/[address] [facility] Medicine [address] [place] [address] PCP - General Internal Medicine 07/17/17 documented as of this encounter
--- OUTSIDE RECORDS SUMMARY | 2024-12-22 16:45 | XMS_ITS | Encounter Summary ---
Author Organization [facility] Address [address] [place] [address] Care Team Providers Care Media Executive Name Role Phone Alberto Pacheco Primary Care Provider [phone] Unknown Pcp, Non Rmg Primary Care Provider Unava ilable Charly Saxena Primary Care Provider [phone] Charly Saxena Primary Care Provider Cheryl Calderon MD Primary Care Provider [phone] Encounter Details Date Type Department Care Team (Late st Contact Info) Description 02/03/2007 Orders Only [facility] Rheumatology [address] [place] [address] Nikkie Moss, TOBACCO ROLLER [address] [place], [place] [id number] Social History Tobacco Use Types Packs/Day Years [...] AST (SGOT) 16 10 - 35 U/L [facility] (CLIA# [id number]) 02/04/2007 02/04/2007 7:3 1 PM EDT us Abel Fierro MD LAB SAME DAY RESULT Final Resul t [facility] (CLIA# [id number]) [address] [place] [address] * (ABNORMAL) CBC 5 PART DIFF (02/04/2007) WHITE BLOOD COUNT 9.7 3.8 - 10.8 THOUS/UL [facility] (CLIA# [id number]) RBC 5.08 3.80 - 5.10 MIL/UL [facility] (CLIA# [id number]) Hemoglobin 15.4 11.7 - 15.5 G/DL [facility] (CLIA# [id number]) HCT (HEMATOCRIT) 45.3(H) 35.0 - 45.0 % [facility] (CLIA# [id number]) MCV 89.2 80.0 - 100.0 FL [facility] (CLIA# [id number]) MCH 30.4 27.0 - 33.0 PG [facility] (CLIA# [id number]) MCHC 34.1 32.0 - 36.0 G/DL [facility] (CLIA# [id number]) BAND % 0 0 - 5 % [facility] (CLIA# [id number]) NEUTROPHIL % 84(H) 48 - 75 % [facility] (CLIA# [id number]) LYMPHOCYTE % 10(L) 17 - 40 % [facility] (CLIA# [id number]) MONOCYTE % 6 0 - 14 % [facility] (CLIA# [id number]) EOSINOPHIL % 0 0 - 5 % [facility] (CLIA# [id number]) BASOPHIL % 0 0 - 3 % [facility] (CLIA# [id number]) ATYPICAL LYMPHOCYTE % 0 0 - 5 % [facility] (CLIA# [id number]) PLATELETS 392 140 - 400 THOUS/UL [facility] (CLIA# [id number]) BANDS # 0 0 - 750 CELLS/MCL [facility] (CLIA# [id number]) NEUTROPHILS # 8148(H) 1500 - 7800 CELLS/MCL [facility] (CLIA# [id number]) LYMPHOCYTES # 970 850 - 3900 CELLS/MCL [facility] (CLIA# [id number]) MONOCYTES # 582 200 - 950 CELLS/MCL [facility] (CLIA# [id number]) EOSINOPHILS # 0(L) 15 - 550 CELLS/MCL [facility] (CLIA# [id number]) BASOPHILS # 0 0 - 200 CELLS/MCL [facility] (CLIA# [id number]) ATYPICAL LYMPHOCYTES # 0 0 - 200 /UL [facility] (CLIA# [id number]) RDW 14.6 11.0 - 15.0 % [facility] (CLIA# [id number]) MPV 7.6 7.5 - 11.5 FL [facility] (CLIA# [id number]) 02/04/2007 02/04/2007 7:3 1 PM EDT us Abel Fierro MD LAB SAME DAY RESULT Final Resul [facility] (CLIA# [id number]) [address] [place] [address] documented in this encounter Visit Diagnoses Diagnosis RHEUMATOID ARTHRITIS- Primary Rheumatoid arthritis documented in this encounter Care Teams Media Executive Relationship Specialty Start Date End Date Alberto Pacheco [address] [place] [address] PCP - General 07/19/08 05/24/13 Unknown Pcp, Non Rmg PCP - General 06/30/08 07/18/08 Charly Saxena [address] [address] PCP - General 01/18/06 06/29/08 Charly Saxena [address] [place] [address] PCP - General Internal Medicine 05/25/13 07/16/[address] [facility] Adult Medicine [address] [place] [address] PCP - General Internal Medicine 07/17/17 documented as of this encounter
--- OUTSIDE RECORDS SUMMARY | 2024-12-22 16:45 | XMS_ITS | Encounter Summary ---
Author Organization [facility] Address [address] [place] [address] Care Team Providers Care Medical Customer Service Representative Name Role Phone Alberto Pacheco Primary Care Provider [phone] Charly Saxena Primary Care Provider [phone] Cheryl Calderon MD Primary Care Provider [phone] Encounter Details Date Type Department Care Team (Late st Contact Info) Description 12/06/2009 Orders Only [facility] Rheumatology [address] [place] [address] Abel Fierro MD [address] [place] [address] Social History Tobacco Use Types Packs/Day Years [...] Phone Number [facility] [address] [place] [address] * (ABNORMAL) CBC 5 PART DIFF (12/06/2009) [...] Resul t Performing Organization Address [facility] de Phone Number [facility] [address] [place] [address] * ASPARTATE AMINOTRANSFERASE (AST), SERUM (12/06/2009) AST (SGOT) 18 10 - 35 U/L [facility] 12/06/2009 12/06/2009 9:4 5 PM EDT Abel Fierro MD LAB SAME DAY RESULT Final Resul t Performing Organization Address [facility] de Phone Number [facility] [address] [place] [address] * ALANINE AMINOTRANSFERASE (ALT), SERUM (12/06/2009) ALT (SGPT) 23 6 - 40 U/L [facility] 12/06/2009 12/06/2009 9:4 5 PM EDT Abel Fierro MD LAB SAME DAY RESULT Final Resul t Performing Organization Address [facility] de Phone Number [facility] [address] [place] [address] documented in this encounter Visit Diagnoses Diagnosis Rheumatoid arthritis(714.0) Rheumatoid arthritis documented in this encounter Care Teams Medical Customer Service Representative Relationship Specialty Start Date End Date Alberto Pacheco [address] [place] [address] PCP - General 07/19/08 05/24/13 Charly Saxena [facility] [address] [place] [address] PCP - General Internal Medicine 05/25/13 07/16/17 Cheryl Calderon MD [facility] Medicine [address] [place] [address] PCP - General Internal Medicine 07/17/17 documented as of this encounter
--- OUTSIDE RECORDS SUMMARY | 2024-12-22 16:45 | XMS_ITS | Encounter Summary ---
Author Organization [facility] Address [address] [place] [address] Care Team Providers Care Marketing Researcher Name Role Phone Alberto Pacheco Primary Care Provider [phone] Charly Saxena Primary Care Provider [phone] Cheryl Calderon MD Primary Care Provider [phone] Encounter Details Date Type Department Care Team (Late st Contact Info) Description 03/31/2009 Orders Only [facility] Rheumatology [address] [place] [address] Abel Fierro MD [address] [place] [address] Social History Tobacco Use Types Packs/Day Years [...] RESULT Final Resul t Performing Organization Address City/State/[facility] Co de Phone Number [facility] [address] [place] [address] * (ABNORMAL) CBC 5 PART DIFF (03/31/2009) [...] RESULT Final Resul t Performing Organization Address City/[facility] Co de Phone Number [facility] [address] [place] [address] * ASPARTATE AMINOTRANSFERASE (AST), SERUM (03/31/2009) AST (SGOT) 20 10 - 35 U/L [facility] 03/31/2009 04/01/2009 12: 36 AM EST Narrative [facility] - 04/01/2009 5:29 AM EST Report Comments: RBC'S PRESENT, CHEMISTRY RESULT(S) MAY BE AFFECTED us Abel Fierro MD LAB SAME DAY RESULT Final Resul t Performing Organization Address City/[facility] Co de Phone Number [facility] [address] [place] [address] * ALANINE AMINOTRANSFERASE (ALT), SERUM (03/31/2009) ALT (SGPT) 21 6 - 40 U/L [facility] 03/31/2009 04/01/2009 12: 36 AM EST Narrative [facility] - 04/01/2009 5:29 AM EST Report Comments: RBC'S PRESENT, CHEMISTRY RESULT(S) MAY BE AFFECTED us Abel Fierro MD LAB SAME DAY RESULT Final Resul t [facility] [address] [place] [address] documented in this encounter Visit Diagnoses Diagnosis Rheumatoid arthritis(714.0) Rheumatoid arthritis documented in this encounter Care Teams Marketing Researcher Relationship Specialty Start Date End Date Alberto Pacheco [address] [place] [address] PCP - General 07/19/08 05/24/13 Charly Saxena [facility] [address] [place] [address] PCP - General Internal Medicine 05/25/13 07/16/17 Cheryl Calderon MD [facility] Medicine [address] [place] [address] PCP - General Internal Medicine 07/17/17 documented as of this encounter
--- OUTSIDE RECORDS SUMMARY | 2024-12-22 16:45 | XMS_ITS | Encounter Summary ---
Author Organization [facility] Address [address] [place] [address] Phone Care Team Providers Care Crew Boss Name Role Phone Cash Fernandes MD Unavailable [phone] Keren Poon [facility] Primary Care Provid er Willi Wells MD Unavailable Unavailable Jose Thakur MD Unavailable Dana Rucker LAWYER [employer]OBATE Unavailable [phone] Jonathan Alvarez MD Unavailable [phone] Anival Borja MD Unavailable Lyndsay Reynoso LAWYER PROBATE Unavailable [phone] Gutierrez Pittman MD Unavailable [phone] Encounter Details Date Type Department Care Team (Latest Contact Info) Description 12/17/2024 Plan of Care Documentation [facility] [address] [place] [address] [id number] Social History Tobacco Use Types Packs/Day Years [...] PM EDT documented as of this encounter Miscellaneous Notes * Outpatient Rehab Plan of Care - Nereyda Wong, PT - 12/17/2024 2:14 PM EDT [facility]PARTMENT OF HEALTH AND HUMAN SERVICES HEALTH CARE FINANCING ADMINISTRATION PLAN OF TREATMENT FOR OUTPATIENT REHABILITATION (Complete for Initial Claims Only) 1. PROVIDER NAME: Nereyda Wong PT 2. 3. ONSET DATE: 12/16/24 4. SOC DATE: 12/16/24 5. PRIMARY DIAGNOSIS: 1. PFD (pelvic floor dysfunction) 6. VISITS FROM SOC: 1 7. PLAN OF TREATMENT FUNCTIONAL GOAL GOAL (Short Term): 6 weeks Pt will be educated on good toileting habits and positions Patient will be educated on good self care habits Patient will report 25% decrease in Sxs Patient will be I with HEP Patient will complete bowel/bladder diary and have feedback on healthy changes OUTCOME (Residential): 12 weeks Patient will be I with self mgmt strategy and control over Sxs 90% of time Patient will return to regular exercise program with breathing/mindfulness component Pt will have met their self stated goal for PT Patient Stated Goal: Optimize PF function PLAN Frequency and Duration: Patient will be seen 1 times per week for 8 visits Manual therapy Progressive therex Education HEP Pain science ed/autonomic Nervous system rehab Body mechanics and toileting positioning ed Bowel/bladder retraining Moisturizer and/or lubricant ed 8. SIGNATURE (professional establishing POC including prof. Designation): Nereyda Wong PT 9. INITIAL ASSESSMENT (History, medical complications, level of function at start of care. Reason for referral) Please refer to initial assessment note for full documentation. 10. FUNCTIONAL LEVEL (End of Billing Period) PROGRESS REPORT: Continue Services Please refer to progress notes and Plan of Care for documentation of patient progress. documented in this encounter Plan of Treatment Upcoming Encounters Date Type Department Care Team (Late st Contact Info) Description 12/25/2024 2:30 PM EDT Office Visit [facility] Infectious Diseases [address] [place] [address] Dana Rucker FNP [address] [address] [email or web address] 01/01/2025 1:00 PM EDT Office Visit [address] [address] Dana Rucker FNP [address] [address] [email or web address] Nereyda Wong, PT 380 [place] [address] [email or web address] 01/07/2025 2:30 PM EDT Office Visit [facility] All[facility] Critical [facility] Medicine 10 [place] [address] Jose Thakur MD 30 [place] [address] 01/19/2025 2:30 PM EDT Office Visit [address] [address] Dana Rucker FNP [address] [address] Nereyda Wong, PT [address] [place] [address] 01/26/2025 2:30 PM EDT Office Visit [facility] 380 [place] [address] Dana Rucker, LAWYER PROBATE [address] [address] Nereyda Wong, PT 380 [place] [address] 01/29/2025 3:00 PM EDT Office Visit [address] [place] [address] Keren Poon, WAREHOUSE LABORER [address] [place] [address] 02/01/2025 3:00 PM EDT Office Visit [address] [place] [address] Keren Poon, WAREHOUSE LABORER [address] [place] [address] 03/02/2025 2:30 PM EST Office Visit [address] [address] Dana Rucker, [facility] [address] [address] Nereyda Wong, PT [address] [place] [address] 03/09/2025 2:30 PM EST Office Visit [address] [address] Dana Rucker, LAWYER PROBATE 15 [facility], [address] [place] [address] Nereyda Wong, PT 380 [place] [address] [email or web address] 03/16/2025 2:30 PM EST Office Visit [facility] [address] [place] [address] Dana Rucker, LAWYER PROBATE 15 [facility], 2nd [place] [address] Nereyda Wong, PT 380 [place] [address] [email or web address] 06/03/2025 2:00 PM EST Office Visit [facility] [address] [place] [address] [place] [address] Keren Poon, ORI [address] [place] [address] documented as of this encounter Visit Diagnoses Not on filedocumented in this encounter Additional Health Concerns Assessment Noted Time PHQ-9 Depression Total Score: 5 05/09/19 24 6:55 AM EST PHQ-2 Depression Total Score: 2 05/27/19 25 1:55 PM EST documented as of this encounter Care Teams Crew Boss Relationship Specialty Start Date End Date Keren Poon CNP [address] [place] [address] PCP - General Family Medicine 01/31/23 Cash Fernandes MD [address] [place] [address] Gastroenterology 08/23/20 Willi Wells MD [address] [place] [address] [place] [address] Rheumatology 02/04/24 Jose Thakur MD 30 [place] [address] [email or web address] Bond Broker Pulmonary Disease 03/17/24 Dana Rucker FNP 15 [facility], 2nd [place] [address] [email or web address] Nurse Practitioner Infectious Diseases 05/21/24 Jonathan Alvarez MD [address] [place] [address], [address] [place] [address] [email or web address] Urology 05/14/23 Anival Borja MD [address] [place] [address], [address] [place] [address] Neurologist Neurology 01/04/23 Lyndsay Reynoso FNP [address] [address] Nurse Practitioner Pain Medicine 05/27/22 Gutierrez Pittman MD 40 [place] [address] Owner/Photographer Cardiology 05/27/24 documented as of this encounter Additional Source Comments The information contained in this document represents components of the legal health record. It is not the complete legal health record.[facility]
--- OUTSIDE RECORDS SUMMARY | 2024-12-22 16:45 | XMS_ITS | Encounter Summary ---
Author Organization [facility] Address 5 [place] [address] Care Team Providers Care Detailer [employer]aceuticals Name Role Phone Alberto Pacheco Primary Care Provider [phone] Charly Saxena Primary Care Provider [phone] Cheryl Calderon MD Primary Care Provider [phone] Reason for Visit * Reason Comments E-prescribing Refill Request Encounter Details Date Type Department Care Team (Late st Contact Info) Description 06/16/2011 Refill [facility] Rheumatology [address] [place] [address] Abel Fierro MD [address] [place] [address] E-prescribing Refill Request Social History Tobacco Use [...] her cruise. xc: Alberto Pacheco MD 28 [facility] Next OV: No future appointments. Pertinent [...] on filedocumented in this encounter Care Teams Detailer Pharmaceuticals Relationship Specialty Start Date End Date Alberto Pacheco [address] [place] [address] PCP - General 07/19/08 05/24/13 Charly Saxena [facility] [address] [place] [address] PCP - General Internal Medicine 05/25/13 07/16/17 Cheryl Calderon MD [facility] Adult Medicine 95 [place] [address] PCP - General Internal Medicine 07/17/17 documented as of this encounter
--- OUTSIDE RECORDS SUMMARY | 2024-12-22 16:45 | XMS_ITS | Encounter Summary ---
Author Organization [facility] Address 5 [place] [address] Care Team Providers Care Psychologist Clinical Name Role Phone Alberto Pacheco Primary Care Provider [phone] Charly Saxena Primary Care Provider [phone] Cheryl Calderon MD Primary Care Provider [phone] Reason for Visit * Reason Comments E-prescribing Refill Request Encounter Details Date Type Department Care Team ([facility] st Contact Info) Description 10/20/2011 Refill [facility] Rheumatology [address] [place] [address] Abel Fierro MD 5 [place] [address] E-prescribing Refill Request Social History Tobacco Use [...] on filedocumented in this encounter Care Teams Psychologist Clinical Relationship Specialty Start Date End Date Alberto Pacheco [address] [place] [address] PCP - General 07/19/08 05/24/13 Charly Saxena [facility] [address] [place] [address] PCP - General Internal Medicine 05/25/13 07/16/17 Cheryl Calderon MD [facility] Medicine [address] [place] [address] PCP - General Internal Medicine 07/17/17 documented as of this encounter
--- OUTSIDE RECORDS SUMMARY | 2024-12-22 16:45 | XMS_ITS | Encounter Summary ---
Author Organization [facility] Address [address] [place] [address] Care Team Providers Care Juvenile Counselor Name Role Phone Alberto Pacheco Primary Care Provider [phone] Charly Saxena Primary Care Provider [phone] Cheryl Calderon MD Primary Care Provider [phone] Encounter Details Date Type Department Care Team (Late st Contact Info) Description 02/20/2011 Orders Only [facility] Rheumatology [address] [place] [address] Abel Fierro MD 5 [place] [address] Social History Tobacco Use Types Packs/Day Years [...] 0.60 - 1.10 mg/dL [facility] Comment:{CREATININE {[id number]) GFR 82 > OR = 60 mL/min/1.7 3m2 [facility] Comment:{eGFR NON-AFR. AMERI CAN {[id number]) GFR () 96 > OR = 60 mL/min/1.7 3m2 [facility] Comment:{eGFR AMERIC AN {[id number]) 02/20/2011 11:2 4 AM EDT 02/20/2011 7:08 [...] needs for GFR calculation. Resulting Agency Comment [id number] us Abel Fierro MD LAB SAME DAY RESULT Final Resul t [facility] [address] [place] [address] * (ABNORMAL) CBC INCLUDES DIFFERENTIAL AND PLATELET COUNT (02/20/2011 11:24 AM EDT) WBC 7.8 3.8 - 10.8 Thousand/ uL [facility] Comment:{WHITE BLOOD CELL CO UNT {[id number]) RBC 5.43(H) 3.80 - 5.10 Million/u L [facility] Comment:{RED BLOOD CELL COUN T {[id number]) Hemoglobin 15.9(H) 11.7 - 15.5 g/dL [facility] Comment:{HEMOGLOBIN {[id number]) Hematocrit 48.3(H) 35.0 - 45.0 % [facility] Comment:{HEMATOCRIT {[id number]) MCV 89.0 80.0 - 100.0 fL [facility] Comment:{MCV {[id number]) MCH 29.4 27.0 - 33.0 pg [facility] Comment:{MCH {[id number]) MCHC 33.0 32.0 - 36.0 g/dL [facility] Comment:{MCHC {[id number]) RDW 14.3 11.0 - 15.0 % [facility] Comment:{RDW {[id number]) PLT 274 140 - 400 Thousand/ uL [facility] Comment:{PLATELET COUNT {[id number]) MPV 8.3 7.5 - 11.5 fL [facility] Comment:{MPV {[id number]) Neutrophils # 4930 1500 - 7800 cells/uL [facility] Comment:{ABSOLUTE NEUTROPHIL S {[id number]) Lymphocytes # 1919 850 - 3900 cells/uL [facility] Comment:{ABSOLUTE LYMPHOCYTE S {[id number]) Monocytes # 780 200 - 950 cells/uL [facility] Comment:{ABSOLUTE MONOCYTES {[id number]) Eosinophils # 125 15 - 500 cells/uL [facility] Comment:{ABSOLUTE EOSINOPHIL S {[id number]) Basophils # 47 0 - 200 cells/uL [facility] Comment:{ABSOLUTE BASOPHILS {[id number]) Neutrophils % 63.2 % [facility] Comment:{NEUTROPHILS {[id number]) Lymphocytes % 24.6 % [facility] Comment:{LYMPHOCYTES {[id number]) Monocytes % 10.0 % [facility] Comment:{MONOCYTES {[id number]) Eosinophils % 1.6 % [facility] Comment:{EOSINOPHILS {[id number]) Basophils % 0.6 % [facility] Comment:{BASOPHILS {[id number]) 02/20/2011 11:2 4 AM EDT 02/20/2011 7:08 PM EDT Narrative Resulting Agency Comment [id number] us Abel Fierro MD LAB SAME DAY RESULT Final Resul t Performing Organization Address City/[facility] Co de Phone Number [facility] [address] [place] [address] * ASPARTATE AMINOTRANSFERASE (AST), SERUM (02/20/2011 11:24 AM EDT) AST (SGOT) 23 10 - 35 U/L [facility] Comment:{AST {[id number]) 02/20/2011 11:2 4 AM EDT 02/20/2011 7:08 PM EDT Narrative Resulting Agency Comment [id number] us Abel Fierro MD LAB SAME DAY RESULT Final Resul t Performing Organization Address [facility] Co de Phone Number [facility] [address] [place] [address] * ALANINE AMINOTRANSFERASE (ALT), SERUM (02/20/2011 11:24 AM EDT) ALT (SGPT) 25 6 - 40 U/L [facility] Comment:{ALT {[id number]) 02/20/2011 11:2 4 AM EDT 02/20/2011 7:08 PM EDT Narrative Resulting Agency Comment [id number] us Abel Fierro MD LAB SAME DAY RESULT Final Resul t Performing Organization Address City/[facility] Co de Phone Number [facility] [address] [place] [address] documented in this encounter Visit Diagnoses Diagnosis Rheumatoid arthritis(714.0) Rheumatoid arthritis documented in this encounter Care Teams Juvenile Counselor Relationship Specialty Start Date End Date Alberto Pacheco [address] [place] [address] PCP - General 07/19/08 05/24/13 Charly Saxena [facility] [address] [place] [address] PCP - General Internal Medicine 05/25/13 07/16/17 Cheryl Calderon MD [facility] Medicine [address] [place] [address] PCP - General Internal Medicine 07/17/17 documented as of this encounter
--- OUTSIDE RECORDS SUMMARY | 2024-12-22 16:45 | XMS_ITS | Encounter Summary ---
Author Organization [facility] Address [address] [place] [address] Phone Care Team Providers Care Risk Prevention Engineer Name Role Phone Cash Fernandes MD Unavailable [phone] Keren Poon [facility] Primary Care Provid er Willi Wells MD Unavailable Unavailable Jose Thakur MD Unavailable [phone] Dana Rucker HOUSEKEEPER MANAGER Unavailable Jonathan Alvarez MD Unavailable [phone] Anival Borja MD Unavailable Lyndsay Reynoso HOUSEKEEPER MANAGER Unavailable Gutierrez Pittman MD Unavailable [phone] Encounter Details Date Type Department Care Team (Late st Contact Info) Description 06/06/2024 Procedure Pass [facility], [address] [address] Social History Tobacco Use Types Packs/Day Years [...] or tries to control you? No 05/27/2024 Comments No Sex and Gender Information Value [...] Description 12/25/2024 2:30 PM EDT Office Visit [facility] Infectious Diseases [address] [place] [address] Dana Ruckre FNP [address] [place] [address] 01/01/2025 1:00 PM EDT Office Visit [facility] [address] [place] [address] Dana Rucker HOUSEKEEPER MANAGER [address] [place] [address] Nereyda Wong, PT [address] [place] [address] 01/07/2025 2:30 PM EDT Office Visit [facility], Allergy [facility] Critical Care Medicine 10 [place], [place] [address] Jose Thakur MD 30 [place] [address] 01/19/2025 2:30 PM EDT Office Visit [facility] [address] [place], [place] [address] Dana Rucker Leslee, [facility] 15 [facility], [address] [place] [address] Nereyda Wong, PT [address] [place] [address] 01/26/2025 2:30 PM EDT Office Visit [facility] [address] [place] [address] Dana Rucker, [facility] 15 [facility], [address] [place] [address] Nereyda Wong, PT [address] [place] [address] 01/29/2025 3:00 PM EDT Office Visit [address] [place] [address] Keren Poon, MALL MANAGER [address] [address] 02/01/2025 3:00 PM EDT Office Visit [address] [place] [address] Keren Poon, MALL MANAGER [address] [place] [address] 03/02/2025 2:30 PM EST Office Visit [address] [address] Dana Rucker, [facility] 15 [facility], [address] [place] [address] Nereyda Wong, PT [address] [place] [address] [email or web address] 03/09/2025 2:30 PM EST Office Visit [facility] [address] [place] [address] Dana Rucker, [facility] [address] [address] Nereyda Wong, PT [address] [place] [address] [email or web address] 03/16/2025 2:30 PM EST Office Visit [facility] [address] [place] [address] Dana Rucker, [facility] [address] [address] Nereyda Wong, PT [address] [place] [address] 06/03/2025 2:00 PM EST Office Visit [facility] [address] [place] [address] [place] [address] Keren Poon, [address] [address] [email or web address] documented as of this encounter Visit Diagnoses [...] documented as of this encounter Care Teams Risk Prevention Engineer Relationship Specialty Start Date End Date Keren Poon CNP [address] [place] [address], 2[address] [place] [address] [email or web address] PCP - General Family Medicine 01/31/23 Cash Fernandes MD [address] [place] [address] [email or web address] Gastroenterology 08/23/20 Willi Wells MD 225 [facility] Internal [facility] [place] [address] Rheumatology 02/04/24 Jose Thakur MD [address] [place] [address] [email or web address] Vendor Management Consultant Pulmonary Disease 03/17/24 Dana Rucker FNP [address] [address] [email or web address] Nurse Practitioner Infectious Diseases 05/21/24 Jonathan Alvarez MD [address] [place] [address], [address] [place] [address] [email or web address] Urology 05/14/23 Anival Borja MD [address] [place] [address], [address] [place] [address] [email or web address] Neurologist Neurology 01/04/23 Lyndsay Reynoso FNP [address] [address] Nurse Practitioner Pain Medicine 05/27/22 Gutierrez Pittman MD [address] [place] [address] Waste Minimization Technician Cardiology 05/27/24 documented as of this encounter Additional Source Comments The information contained in this document represents components of the legal health record. It is not the complete legal health record.[facility]
--- OUTSIDE RECORDS SUMMARY | 2024-12-22 16:45 | XMS_ITS | Encounter Summary ---
Author Organization [facility] Address [address] [place] [address] Care Team Providers Care House Detective Name Role Phone Alberto Pacheco Primary Care Provider [phone] Charly Saxena Primary Care Provider [phone] Cheryl Calderon MD Primary Care Provider [phone] Encounter Details Date Type Department Care Team (Late st Contact Info) Description 01/23/2010 Orders Only [facility] Rheumatology [address] [place] [address] Abel Fierro MD 5 [place] [address] Social History Tobacco Use Types Packs/Day Years [...] Co de Phone Number [facility] [address] [place] [address] * (ABNORMAL) C-REACTIVE PROTEIN (CRP), QUANTITATIVE, SERUM INFLAMMATION (01/23/2010) Pathologist [facility] C REACTIVE PROTEIN (CRP) 1.5(H) 0 - 0.7 MG/DL [facility] 01/23/2010 01/23/2010 9:1 6 PM EDT Abel Fierro MD LABORATORY Final Result Performing Organization Address City/[facility]/ZIP Co de Phone Number [facility] [address] [place] [address] * CREATININE WITH GLOMERULAR FILTRATION RATE, ESTIMATED [...] RESULT Final Resul t [facility] [address] [place] [address] * (ABNORMAL) CBC 5 PART DIFF (01/23/2010) [...] Resul t Performing Organization Address [facility] de Phone Number [facility] [address] [place] [address] * ASPARTATE AMINOTRANSFERASE (AST), SERUM (01/23/2010) AST (SGOT) 23 10 - 35 U/L [facility] 01/23/2010 01/23/2010 9:1 6 PM EDT us Abel Fierro MD LAB SAME DAY RESULT Final Resul t Performing Organization Address [facility] de Phone Number [facility] [address] [place] [address] * ALANINE AMINOTRANSFERASE (ALT), SERUM (01/23/2010) ALT (SGPT) 26 6 - 40 U/L [facility] 01/23/2010 01/23/2010 9:1 6 PM EDT us Abel Fierro MD LAB SAME DAY RESULT Final Resul t Performing Organization Address [facility] de Phone Number [facility] [address] [place] [address] documented in this encounter Visit Diagnoses Diagnosis Rheumatoid arthritis(714.0)- Primary Rheumatoid arthritis documented in this encounter Care Teams House Detective Relationship Specialty Start Date End Date Alberto Pacheco [address] [place] [address] PCP - General 07/19/08 05/24/13 Charly Saxena [facility] [address] [place] [address] PCP - General Internal Medicine 05/25/13 07/16/17 Cheryl Calderon MD [facility] Medicine [address] [place] [address] PCP - General Internal Medicine 07/17/17 documented as of this encounter
--- OUTSIDE RECORDS SUMMARY | 2024-12-22 16:45 | XMS_ITS | Encounter Summary ---
Author Organization [facility] Address [address] [place] [address] Care Team Providers Care Plastic Sewer Name Role Phone Alberto Pacheco Primary Care Provider [phone] Charly Saxena Primary Care Provider Cheryl Calderon MD Primary Care Provider [phone] Encounter Details Date Type Department Care Team (Late st Contact Info) Description 04/18/2012 Orders Only [facility] Rheumatology [address] [place] [address] Abel Fierro MD [address] [place] [address] Social History Tobacco Use Types Packs/Day Years [...] DIAGNOSTICS Comment:{SED RATE BY MODIFIE D WESTERGREN {[id number]) 04/18/2012 1:37 PM EST 04/18/2012 11:16 PM EST Narrative Resulting Agency Comment [id number] us Abel Fierro MD LAB SAME DAY RESULT Final Resul t Performing Organization Address City/State/[facility] Co de Phone Number [facility] [address] [place] [address] * (ABNORMAL) C-REACTIVE PROTEIN (CRP) - INFLAMMATION (04/18/2012 1:37 PM EST) C reactive protein 1.36(H) <0.80 mg/dL [facility] Comment: {C-REACTIVE PROTEIN {[id number]) Please be advised that patients taking Carboxypenicillins may exhibit falsely decreased C-Reactive Protein levels due to an analytical interference in this assay. 04/18/2012 1:37 PM EST 04/18/2012 11:16 PM EST Narrative Resulting Agency Comment [id number] us Abel Fierro MD LABORATORY Final Result Performing Organization Address [facility] Co de Phone Number [facility] [address] [place] [address] * CREATININE WITH GLOMERULAR FILTRATION RATE, ESTIMATED (EGFR) (04/18/2012 1:37 PM EST) Creatinine 0.77 0.50 - 1.05 mg/dL [facility] Comment: {CREATININE {[id number]) For patients >49 years of age, the reference limit for Creatinine is approximately 13% higher for people identified as -[place]. GFR 86 > OR = 60 mL/min/1. 73m2 [facility] Comment:{eGFR NON-AFR. AMERI CAN {[id number]) GFR () 99 > OR = 60 mL/min/1. 73m2 [facility] Comment:{eGFR AMERIC AN {[id number]) 04/18/2012 1:37 PM EST 04/18/2012 11:16 PM [...] needs for GFR calculation. Resulting Agency Comment [id number] us Abel Fierro MD LAB SAME DAY RESULT Final Resul t Performing Organization Address City/[facility] Co de Phone Number [facility] [address] [place] [address] * (ABNORMAL) CBC INCLUDES DIFFERENTIAL AND PLATELET COUNT (04/18/2012 1:37 PM EST) WBC 8.3 3.8 - 10.8 Thousand/ uL [facility] Comment:{WHITE BLOOD CELL CO UNT {[id number]) RBC 5.25(H) 3.80 - 5.10 Million/u L [facility] Comment:{RED BLOOD CELL COUN T {[id number]) Hemoglobin 15.1 11.7 - 15.5 g/dL [facility] Comment:{HEMOGLOBIN {[id number]) Hematocrit 46.5(H) 35.0 - 45.0 % [facility] Comment:{HEMATOCRIT {[id number]) MCV 88.5 80.0 - 100.0 fL [facility] Comment:{MCV {[id number]) MCH 28.7 27.0 - 33.0 pg [facility] Comment:{MCH {[id number]) MCHC 32.5 32.0 - 36.0 g/dL [facility] Comment:{MCHC {[id number]) RDW 13.4 11.0 - 15.0 % [facility] Comment:{RDW {[id number]) PLT 318 140 - 400 Thousand/ uL [facility] Comment:{PLATELET COUNT {[id number]) MPV 8.2 7.5 - 11.5 fL [facility] Comment:{MPV {[id number]) Neutrophils # 4681 1500 - 7800 cells/uL [facility] Comment:{ABSOLUTE NEUTROPHIL S {[id number]) Lymphocytes # 2598 850 - 3900 cells/uL [facility] Comment:{ABSOLUTE LYMPHOCYTE S {[id number]) Monocytes # 805 200 - 950 cells/uL [facility] Comment:{ABSOLUTE MONOCYTES {[id number]) Eosinophils # 199 15 - 500 cells/uL [facility] Comment:{ABSOLUTE EOSINOPHIL S {[id number]) Basophils # 17 0 - 200 cells/uL [facility] Comment:{ABSOLUTE BASOPHILS {[id number]) Neutrophils % 56.4 % [facility] Comment:{NEUTROPHILS {[id number]) Lymphocytes % 31.3 % [facility] Comment:{LYMPHOCYTES {[id number]) Monocytes % 9.7 % [facility] Comment:{MONOCYTES {[id number]) Eosinophils % 2.4 % [facility] Comment:{EOSINOPHILS {[id number]) Basophils % 0.2 % [facility] Comment:{BASOPHILS {[id number]) 04/18/2012 1:37 PM EST 04/18/2012 11:16 PM EST Narrative Resulting Agency Comment [id number] us Abel Fierro MD LAB SAME DAY RESULT Final Resul t Performing Organization Address City/[facility] Co de Phone Number [facility] [address] [place] [address] * ASPARTATE AMINOTRANSFERASE (AST), SERUM (04/18/2012 1:37 PM EST) AST (SGOT) 18 10 - 35 U/L [facility] Comment:{AST {[id number]) 04/18/2012 1:37 PM EST 04/18/2012 11:16 PM EST Narrative Resulting Agency Comment [id number] us Abel Fierro MD LAB SAME DAY RESULT Final Resul t Performing Organization Address [facility] de Phone Number [facility] [address] [place] [address] * ALANINE AMINOTRANSFERASE (ALT), SERUM (04/18/2012 1:37 PM EST) ALT (SGPT) 17 6 - 40 U/L [facility] Comment:{ALT {[id number]) 04/18/2012 1:37 PM EST 04/18/2012 11:16 PM EST Narrative Resulting Agency Comment [id number] us Abel Fierro MD LAB SAME DAY RESULT Final Resul t Performing Organization Address City/[facility] de Phone Number [facility] [address] [place] [address] documented in this encounter Visit Diagnoses Diagnosis Rheumatoid arthritis(714.0) Rheumatoid arthritis documented in this encounter Care Teams Plastic Sewer Relationship Specialty Start Date End Date Alberto Pacheco [address] [place] [address] PCP - General 07/19/08 05/24/13 Charly Saxena [facility] [address] [place] [address] PCP - General Internal Medicine 05/25/13 07/16/17 Cheryl Calderon MD [address] [address] PCP - General Internal Medicine 07/17/17 documented as of this encounter
--- OUTSIDE RECORDS SUMMARY | 2024-12-22 16:45 | XMS_ITS | Encounter Summary ---
Author Organization [facility] Address [address] [place] [address] Phone Care Team Providers Care Business Case Analyst Name Role Phone Cash Fernandes MD Unavailable [phone] Keren Poon [facility] Primary Care Provid er Willi Wells MD Unavailable Unavailable Jose Thakur MD Unavailable Dana Rucker SENIOR PASTOR Unavailable Jonathan Alvarez MD Unavailable [phone] Anival Borja MD Unavailable Lyndsay Reynoso SENIOR PASTOR Unavailable [phone] Gutierrez Pittman MD Unavailable [phone] Encounter Details Date Type Department Care Team (Latest Contact Info) Description 09/30/2024 Transcribe Orders Virtual Department [address] [place] [address] Argelia Taylor, JULI [address] [place], [place] [id number] Globus sensation (Primary Dx) Social History Tobacco Use Types [...] Upcoming Encounters Date Type Department Care Team ([facility] st Contact Info) Description 12/25/2024 2:30 PM EDT Office Visit [facility] Infectious Diseases [address] [place] [address] Dana Rucker [facility] [address] [address] 01/01/2025 1:00 PM EDT Office Visit [facility] Rehabilitation Services [address] [place] [address] Dana Rucker [address] [address] Nereyda Wong, PT [address] [place] [address] 01/07/2025 2:30 PM EDT Office Visit [facility] Pulmonary, Allergy and Critical Care Medicine [address] [place] [address] Jose Thakur MD [address] [place] [address] 01/19/2025 2:30 PM EDT Office Visit [facility] [address] [place] [address] Dana Rucker, SENIOR PASTOR [address] [address] Nereyda Wong, PT [address] [place] [address] 01/26/2025 2:30 PM EDT Office Visit [facility] [address] [place] [address] Dana Rucker, [address] [address] Nereyda Wong, PT [address] [place] [address] 01/29/2025 3:00 PM EDT Office Visit [address] [place] [address] Keren Poon, VICE PRESIDENT OF SOFTWARE ENGINEERING [address] [place] [address] 02/01/2025 3:00 PM EDT Office Visit [address] [place] [address] Keren Poon, VICE PRESIDENT OF SOFTWARE ENGINEERING [address] [place] [address] 03/02/2025 2:30 PM EST Office Visit [facility] [address] [place] [address] Dana Rucker FNP [address] [address] Nereyda Wong, PT [address] [place] [address] 03/09/2025 2:30 PM EST Office Visit [facility] [address] [place] [address] Dana Rucker, [facility] [address] [address] Nereyda Wong, PT [address] [place] [address] 03/16/2025 2:30 PM EST Office Visit [address] [address] Dana Rucker, [facility] [address] [address] Nereyda Wong, PT [address] [place] [address] 06/03/2025 2:00 PM EST Office Visit [facility] [address] [place] [address] [place] [address] Keren Poon, VICE PRESIDENT OF SOFTWARE ENGINEERING [address] [place] [address] documented as of this encounter Results * FL BARIUM SWALLOW ESOPHAGRAM DOUBLE CONTRAST (10/16/2024 10:06 AM EDT) Anatomical Region Laterality Modality Chest Radio Fluoroscop y 10/16/2024 11:3 5 AM EDT Impressions 10/16/2024 4:44 PM EDT Mild to moderate esophageal dysmotility. FLUOROSCOPY TIME: 1 minute and 3 seconds NUMBER OF IMAGES: 247 The examination was performed by Ross FOREMAN. Dr. Néstor Valentine was immediately available for portions of the procedure as needed. ATTESTATION: I, Néstor Valentine as teaching physician, have reviewed the [...] proximal small bowel are unremarkable. Procedure Note Néstor Valentine MD - 10/16/2024 FL BARIUM SWALLOW [...] IMAGES: 247 The examination was performed by RRA, Ross Hernandez. Dr. Néstor Valentine wasimmediately available for portions of the procedure as needed. ATTESTATION: I, Néstor Valentine as teaching physician, have reviewed theimages for this case and if necessary edited the report originally createdby Ross Hernandez. Argelia Taylor CUTTING ROOM SUPERVISOR IMG FL MISC Final Res ult documented in this encounter Visit Diagnoses Diagnosis Globus sensation- Primary Gastrointestinal malfunction arising from mental factors Globus sensation Gastrointestinal malfunction arising from mental factors documented in this encounter Additional Health Concerns Assessment Noted Time PHQ-9 Depression Total Score: 5 05/09/19 24 6:55 AM EST PHQ-2 Depression Total Score: 2 05/27/19 25 1:55 PM EST documented as of this encounter Care Teams Business Case Analyst Relationship Specialty Start Date End Date Keren Poon CNP [address] [place] [address] [email or web address] PCP - General Family Medicine 01/31/23 Cash Fernandes MD [address] [place] [address] Gastroenterology 08/23/20 Willi Wells MD [address] [place] [address] [place] [address] Rheumatology 02/04/24 Jose Thakur MD [address] [place] [address] Green Marketing Specialist Pulmonary Disease 03/17/24 Dana Rucker FNP [address] [address] [email or web address] Nurse Practitioner Infectious Diseases 05/21/24 Jonathan Alvarez MD [address] [place] [address], [address] [place] [address] Urology 05/14/23 Anival Borja MD [address] [place] [address], [address] [place] [address] [email or web address] Neurologist Neurology 01/04/23 Lyndsay Reynoso FNP [address] [place] [address] Nurse Practitioner Pain Medicine 05/27/22 Gutierrez Pittman MD [address] [place] [address] Import Customs Clearing Agent Cardiology 05/27/24 documented as of this encounter Additional Source Comments The information contained in this document represents components of the legal health record. It is not the complete legal health record.[facility]
--- OUTSIDE RECORDS SUMMARY | 2024-12-22 16:45 | XMS_ITS | Encounter Summary ---
Author Organization [facility] Address [address] [place] [address] Phone Care Team Providers Care Dividing Machine Operator Helper Name Role Phone Patrick Sanchez MD Unavailable [phone] Cheryl Calderon MD Primary Care Provider Keren Mabry MD Unavailable Louisa Hogan MD Unavailable Charly Saxena DO Unavailable Abhinav Muhammad MD Unavailable [phone] Cheryl Giraldo NEWS REEL CAMERAMAN Unavailable Wilfrido Steel MD Unavailable [phone] Sharon Martin PA-C Unavailable Ita Pineda CLIENT TECHNOLOGIES SPECIALIST Primary Care Provider Cash Fernandes MD Unavailable [phone] Seven Menchaca MD Unavailable Chavo Jack MD Primary Care Provider Keren Poon [facility] Primary Care Provid er Chavo Jack MD Unavailable Willi Wells MD Unavailable Unavailable Jose Thakur MD Unavailable Dana Rucker TIN POT OPERATOR Unavailable Jonathan Alvarez MD Unavailable [phone] Anival Borja MD Unavailable Angeles Lyndsay K TIN POT OPERATOR Unavailable Gutierrez Pittman MD Unavailable [phone] Encounter Details Date Type Department Care Team (Late Contact Info) Description 04/30/2018 Procedure Pass [facility] Periop 6th floor [address] [place] [address] Social History Tobacco Use Types Packs/Day Years [...] Department Care Team (Late Contact Info) Description 12/25/2024 2:30 PM EDT Office Visit [facility] Infectious Diseases [address] [place] [address] Dana Rucker FNP [address] [address] 01/01/2025 1:00 PM EDT Office Visit [facility] Rehabilitation Services [address] [place] [address] Dana Rucker FNP [address] [address] Nereyda Wong, PT [address] [place] [address] 01/07/2025 2:30 PM EDT Office Visit [facility] Pulmonary, Allergy and Critical Care Medicine 10 [facility] [place] [address] Jose Thakur MD 30 [place] [address] 01/19/2025 2:30 PM EDT Office Visit [address] [address] Dana Rucker, TIN POT OPERATOR [address] [address] Nereyda Wong, PT [address] [place] [address] 01/26/2025 2:30 PM EDT Office Visit [address] [address] Dana Rucker, TIN POT OPERATOR [address] [address] Nereyda Wong, PT [address] [place] [address] 01/29/2025 3:00 PM EDT Office Visit [facility] [address] [place] [address] [place] [address] Keren Poon, [address] [address] 02/01/2025 3:00 PM EDT Office Visit [address] [place] [address] Keren Poon, ORI [address] [address] 03/02/2025 2:30 PM EST Office Visit [facility] [address] [place] [address] Dana Rucker, [address] [address] Nereyda Wong, PT [address] [place] [address] 03/09/2025 2:30 PM EST Office Visit [facility] [address] [place] [address] Dana Rucker, [address] [address] Nereyda Wong, PT [address] [place] [address] 03/16/2025 2:30 PM EST Office Visit [facility] [address] [place] [address] Dana Rucker, [address] [address] Nereyda Wong, PT [address] [place] [address] 06/03/2025 2:00 PM EST Office Visit [address] [place] [address] Keren Poon, ORI [address] [place] [address] [email or web address] documented as of this encounter Visit Diagnoses [...] documented as of this encounter Care Teams Dividing Machine Operator Helper Relationship Specialty Start Date End Date Cheryl Calderon MD [address] [place] [address] PCP - General Family Medicine 04/23/18 08/18/20 Ita Pineda CNP [address] [place] [address] [email or web address] PCP - General Internal Medicine 08/19/20 09/17/22 Chavo Jack MD [address] [place] [address] [email or web address] PCP - General Internal Medicine 09/18/22 01/30/23 Keren Poon CNP [address] [place] [address], 2nd [place] [address] PCP - General Family Medicine 01/31/23 Patrick Sanchez MD [address] [place] [address] [place] [address] [email or web address] Historical LMR Provider 09/10/14 Keren Mabry MD [address] [place] [address] Historical LMR Provider 07/10/18 Louisa Hogan MD [address] [place] [address] [email or web address] Historical LMR Provider 07/10/1807/29 Charly Saxena DO [address] [place] [address] [email or web address] Historical LMR Provider 07/10/18 08/22/20 Abhinav Muhammad MD [address] [place] [address] [address] [place] [address] [email or web address] Historical LMR Provider 07/10/18 08/22/20 Cheryl Giraldo NEWS REEL CAMERAMAN [address] [place] [address] [email or web address] Historical LMR Provider 07/10/18 08/22/20 Wilfrido Steel MD [address] [place] [address] [email or web address] Historical LMR Provider 07/10/18 08/22/20 Sharon Martin PA-C 115 [facility] [address]. [address] [place] [address] Historical LMR Provider 07/10/18 08/22/20 Cash Fernandes MD 10 [facility] 2 [place], [place] [id number] [email or web address] Gastroenterology 08/23/20 Seven Menchaca MD [address] [place] [address] [email or web address] Insurance Assigned Provider 08/04/22 08/03/23 Chavo Jack MD [address] [place] [address] [email or web address] Insurance Assigned Provider 08/03/23 05/04/24 Willi Wells MD 225 [facility] [place] [address] Rheumatology 02/04/24 Jose Thakur MD 30 [place] [address] [email or web address] Garage Door Installer Pulmonary Disease 03/17/24 Dana Rucker FNP 15 [facility], 2nd [place] [address] [email or web address] Nurse Practitioner Infectious Diseases 05/21/24 Jonathan Alvarez MD [address] [place] [address], [address] [place] [address] [email or web address] Urology 05/14/23 Anival Borja MD [address] [place] [address], [address] [place] [address] [email or web address] Neurologist Neurology 01/04/23 Lyndsay Reynoso FNP [address] [place] [address] Nurse Practitioner Pain Medicine 05/27/22 Gutierrez Pittman MD [address] [place] [address] Senior Java Developer Cardiology 05/27/24 documented as of this encounter Additional Source Comments The information contained in this document represents components of the legal health record. It is not the complete legal health record.[facility]
--- OUTSIDE RECORDS SUMMARY | 2024-12-22 16:45 | XMS_ITS | Encounter Summary ---
Author Organization [facility] Address [address] [place] [address] Care Team Providers Care Fisher Clam Name Role Phone Cheryl Calderon MD Primary Care Provider [phone] Encounter Details Date Type Department Care Team (Late st Contact Info) Description 02/16/2019 Orders Only [facility] Rheumatology [address] [place] [phone] Melanie Aguirre MD Social History Tobacco Use [...] approximately 13% higher for people identified as -Nigerian. EGFR 93 > OR = 60 mL/min/1 [...] needs for GFR calculation. Resulting Agency Comment [id number] Melanie Aguirre MD LABORATORY Final Result Performing Organization Address [facility]/ZIP Co de Phone Number [facility] [address] [place] [address] * (ABNORMAL) C-REACTIVE PROTEIN (CRP) - INFLAMMATION (02/16/2019 2:04 PM EDT) Pathologist [facility] C reactive protein 79.2(H) <8.0 mg/L [facility] 02/16/2019 2:04 PM EDT 02/16/2019 11:45 PM EDT Narrative Resulting Agency Comment [id number] Melanie Aguirre MD LABORATORY Final Result Performing Organization Address [facility] Co de Phone Number [facility] [address] [place] [address] * (ABNORMAL) CBC INCLUDES DIFFERENTIAL AND PLATELET COUNT (02/16/2019 2:04 PM EDT) Pathologist [facility] WBC 10.8 3.8 - 10.8 Thousand/u L [...] 11:45 PM EDT Narrative Resulting Agency Comment [id number] us Melanie Aguirer MD LAB SAME DAY RESULT Final Result Performing Organization Address City/[facility] Co de Phone Number [facility] [address] [place] [address] * (ABNORMAL) ERYTHROCYTE SEDIMENTATION RATE (ESR), WESTERGREN (02/16/2019 2:04 PM EDT) Sedimentation Rate [place] (ESR) 72(H) < OR = 30 mm/h [facility] 02/16/2019 2:04 PM EDT 02/16/2019 11:45 PM EDT Narrative Resulting Agency Comment [id number] us Melanie Aguirre MD LAB SAME DAY RESULT Final Result Performing Organization Address [facility] de Phone Number [facility] [address] [place] [address] documented in this encounter Visit Diagnoses Diagnosis Rheumatoid arthritis involving multiple sites with positive rheumatoid factor (HCC) documented in this encounter Care Teams Fisher Clam Relationship Specialty Start Date End Date Cheryl Calderon MD [facility] Adult Medicine [address] [place] [address] PCP - General Internal Medicine 07/17/17 documented as of this encounter
--- OUTSIDE RECORDS SUMMARY | 2024-12-22 16:45 | XMS_ITS | Encounter Summary ---
Author Organization [facility] Address [address] [place] [address] Care Team Providers Care Currency Counter Name Role Phone Alberto Pacheco Primary Care Provider [phone] Charly Saxena Primary Care Provider [phone] Cheryl Calderon MD Primary Care Provider [phone] Encounter Details Date Type Department Care Team (Late st Contact Info) Description 04/14/2010 Orders Only [facility] Rheumatology [address] [place] [address] Deepti Estes GNP Social History Tobacco Use [...] precise needs for GFR calculation. Deepti Estes [facility] SAME DAY RESULT Elana l Result Performing Organization Address [facility] de Phone Number [facility] [address] [place] [address] * ALANINE AMINOTRANSFERASE (ALT), SERUM (04/14/2010) ALT (SGPT) 28 6 - 40 U/L [facility] 04/14/2010 04/14/2010 11: 35 PM EST Deepti Estes [facility] SAME DAY RESULT Elana l Result Performing Organization Address [facility] Co de Phone Number [facility] [address] [place] [address] * ASPARTATE AMINOTRANSFERASE (AST), SERUM (04/14/2010) AST (SGOT) 24 10 - 35 U/L [facility] 04/14/2010 04/14/2010 11: 35 PM EST Deepti Estes [facility] SAME DAY RESULT Elana l Result [facility] [address] [place] [address] * (ABNORMAL) CBC 5 PART DIFF (04/14/2010) [...] 04/14/2010 11: 35 PM EST Deepti Estes [facility] SAME DAY RESULT Elana l Result [facility] [address] [place] [address] documented in this encounter Visit Diagnoses Diagnosis Rheumatoid arthritis(714.0) Rheumatoid arthritis documented in this encounter Care Teams Currency Counter Relationship Specialty Start Date End Date Alberto Pacheco [address] [place] [address] PCP - General 07/19/08 05/24/13 Charly Saxena [facility]0 [place] [address] PCP - General Internal Medicine 05/25/13 07/16/17 Cheryl Calderon MD [facility] Adult Medicine [address] [place] [address] PCP - General Internal Medicine 07/17/17 documented as of this encounter
--- OUTSIDE RECORDS SUMMARY | 2024-12-22 16:45 | XMS_ITS | Encounter Summary ---
Author Organization Formerly [facility] Address [address] [place] [address] Phone Care Team Providers Care Marketing Mgr Name Role Phone Cash Fernandes MD Unavailable Keren Poon [facility] Primary Care Provid er Chavo Jack MD Unavailable Willi Wells MD Unavailable Unavailable Jose Thakur MD Unavailable Dana Rucker DIRECTOR OF OPERATIONS FOR THERAPY Unavailable [phone] Jonathan Alvarez MD Unavailable [phone] Anival Borja MD Unavailable Lyndsay Reynoso DIRECTOR OF OPERATIONS FOR THERAPY Unavailable Gutierrez Pittman MD Unavailable [phone] Encounter Details Date Type Department Care Team (Late st Contact Info) Description 03/17/2024 Procedure Pass [facility], Ct Scan - [address] [address] Social History Tobacco Use Types Packs/Day Years [...] Description 12/25/2024 2:30 PM EDT Office Visit [facility] Infectious Diseases [address] [place] [address] Dana Rucker FNP [address] [address] [email or web address] 01/01/2025 1:00 PM EDT Office Visit [address] [address] Dana Rucker FNP [address] [address] [email or web address] Nereyda Wong, PT [address] [place] [address] 01/07/2025 2:30 PM EDT Office Visit [facility] Allergy and Critical Care Medicine [address] [place] [address] Jose Thakur MD [address] [place] [address] 01/19/2025 2:30 PM EDT Office Visit [facility] [address] [place] [address] Dana Rucker FNP [address] [address] Nereyda Wong, PT [address] [place] [address] 01/26/2025 2:30 PM EDT Office Visit [facility] [address] [place] [address] Dana Rucker, DIRECTOR OF OPERATIONS FOR THERAPY [address] [address] Nereyda Wong, PT [address] [place] [address] 01/29/2025 3:00 PM EDT Office Visit [address] [place] [address] Keren Poon, WEAVING SUPERVISOR [address] [place] [address] 02/01/2025 3:00 PM EDT Office Visit [address] [place] [address] Keren Poon, WEAVING SUPERVISOR [address] [place] [address] 03/02/2025 2:30 PM EST Office Visit [address] [address] Dana Rucker, [facility] [address] [address] Nereyda Wong, PT [address] [place] [address] 03/09/2025 2:30 PM EST Office Visit [address] [address] Dana Rucker, DIRECTOR OF OPERATIONS FOR THERAPY [facility] [address] [place] [address] Nereyda Wong, PT [address] [place] [address] [email or web address] 03/16/2025 2:30 PM EST Office Visit [facility] [address] [place] [address] Chaim Dana Jaimeley, DIRECTOR OF OPERATIONS FOR THERAPY [facility], 2nd [place] [address] Nereyda Wong, PT [address] [place] [address] [email or web address] 06/03/2025 2:00 PM EST Office Visit [facility] [address] [place] [address] [place] [address] Keren Poon, WEAVING SUPERVISOR 170 [facility], [address]nd [place] [address] documented as of this encounter Visit Diagnoses [...] documented as of this encounter Care Teams Marketing Mgr Relationship Specialty Start Date End Date Keren Poon CNP [address] [place] [address] [email or web address] PCP - General Family Medicine 01/31/23 Cash Fernandes MD [address] [address] [email or web address] Gastroenterology 08/23/20 Chavo Jack MD [address] [place] [address] [email or web address] Insurance Assigned Provider 08/03/23 05/04/24 Willi Wells MD [address] [facility] [place] [address] Rheumatology 02/04/24 Jose Thakur MD 30 [place] [address] [email or web address] Machinist Apprentice Pulmonary Disease 03/17/24 Dana Rucker FNP [address] [address] [email or web address] Nurse Practitioner Infectious Diseases 05/21/24 Jonathan Alvarez MD [facility], [address] [place] [address] [email or web address] Urology 05/14/23 Anival Borja MD [address] [place] [address], [address] [place] [address] [email or web address] Neurologist Neurology 01/04/23 Lyndsay Reynoso FNP [address] [place] [address] Nurse Practitioner Pain Medicine 05/27/22 Gutierrez Pittman MD [address] [place] [phone] Library Circulation Clerk Cardiology 05/27/24 documented as of this encounter Additional Source Comments The information contained in this document represents components of the legal health record. It is not the complete legal health record.Formerly [facility]
--- OUTSIDE RECORDS SUMMARY | 2024-12-22 16:45 | XMS_ITS | Encounter Summary ---
Author Organization [facility] Address [address] [place] [address] Care Team Providers Care Certified Ophthalmic Medical Technician Name Role Phone Alberto Pacheco Primary Care Provider [phone] Charly Saxena Primary Care Provider Cheryl Calderon MD Primary Care Provider [phone] Encounter Details Date Type Department Care Team (Late st Contact Info) Description 05/29/2010 Orders Only [facility] Rheumatology [address] [place] [address] Abel Fierro MD [address] [place] [address] Social History Tobacco Use Types Packs/Day Years [...] Resul t Performing Organization Address City/[facility] Co de Phone Number [facility] [address] [place] [address] * C-REACTIVE PROTEIN (CRP), QUANTITATIVE, SERUM INFLAMMATION (05/29/2010) Pathologist [facility] C REACTIVE PROTEIN (CRP) 0.2 0 - 0.7 MG/DL [facility] 05/29/2010 05/29/2010 8:2 8 PM EST Abel Fierro MD LABORATORY Final Result Performing Organization Address [facility] Co de Phone Number [facility] [address] [place] [address] * CREATININE WITH GLOMERULAR FILTRATION RATE, ESTIMATED [...] RESULT Final Resul t [facility] [address] [place] [address] * (ABNORMAL) CBC 5 PART DIFF (05/29/2010) [...] Resul t Performing Organization Address City/[facility] Co de Phone Number [facility] [address] [place] [address] * ASPARTATE AMINOTRANSFERASE (AST), SERUM (05/29/2010) AST (SGOT) 21 10 - 35 U/L [facility] 05/29/2010 05/29/2010 8:2 8 PM EST us Abel Fierro MD LAB SAME DAY RESULT Final Resul t Performing Organization Address [facility] Co de Phone Number [facility] [address] [place] [address] * ALANINE AMINOTRANSFERASE (ALT), SERUM (05/29/2010) ALT (SGPT) 27 6 - 40 U/L [facility] 05/29/2010 05/29/2010 8:2 8 PM EST us Abel Fierro MD LAB SAME DAY RESULT Final Resul t Performing Organization Address [facility] de Phone Number [facility] [address] [place] [address] documented in this encounter Visit Diagnoses Diagnosis Rheumatoid arthritis(714.0) Rheumatoid arthritis documented in this encounter Care Teams Certified Ophthalmic Medical Technician Relationship Specialty Start Date End Date Alberto Pacheco [address] [place] [address] PCP - General 07/19/08 05/24/13 Charly Saxena [facility] [place] [address] PCP - General Internal Medicine 05/25/13 07/16/17 Cheryl Calderon MD [facility] [address] [place] [address] PCP - General Internal Medicine 07/17/17 documented as of this encounter
--- OUTSIDE RECORDS SUMMARY | 2024-12-22 16:45 | XMS_ITS | Encounter Summary ---
Author Organization [facility] Address [address] [place] [address] Care Team Providers Care Transfer Professor Name Role Phone Alberto Pacheco Primary Care Provider [phone] Unknown Pcp, Non Rmg Primary Care Provider Unava ilable Charly Saxena Primary Care Provider [phone] Charly Saxena Primary Care Provider Cheryl Calderon MD Primary Care Provider [phone] Encounter Details Date Type Department Care Team (Late st Contact Info) Description 02/04/2007 Orders Only [facility] Rheumatology [address] [place] [address] Abel Fierro MD [address] [place] [address] Social History Tobacco Use Types Packs/Day Years [...] this encounter Procedures * Due to [place] [employer] law, this organization might not be sharing [...] - 35 U/L [facility] (CLIA# [id number]) 02/04/2007 02/04/2007 7:3 1 PM EDT us Abel Fierro MD LAB SAME DAY RESULT Final Resul t [facility] (CLIA# [id number]) [address] [place] [address] * (ABNORMAL) CBC 5 PART DIFF (02/04/2007) WHITE BLOOD COUNT 9.7 3.8 - 10.8 THOUS/UL [facility] (CLIA# [id number]) RBC 5.08 3.80 - 5.10 MIL/UL [facility] (CLIA# [id number]) Hemoglobin 15.4 11.7 - 15.5 G/DL [facility] (CLIA# [id number]) HCT (HEMATOCRIT) 45.3(H) 35.0 - 45.0 % [facility] (CLIA# [id number]) MCV 89.2 80.0 - 100.0 FL [facility] (CLIA# [id number]) MCH 30.4 27.0 - 33.0 PG [facility] (CLIA# [id number]) MCHC 34.1 32.0 - 36.0 G/DL [facility] (CLIA# [id number]) BAND % 0 0 - 5 % [facility] (CLIA# [id number]) NEUTROPHIL % 84(H) 48 - 75 % [facility] (CLIA# [id number]) LYMPHOCYTE % 10(L) 17 - 40 % [facility] (CLIA# [id number]) MONOCYTE % 6 0 - 14 % [facility] (CLIA# [id number]) EOSINOPHIL % 0 0 - 5 % [facility] (CLIA# [id number]) BASOPHIL % 0 0 - 3 % [facility] (CLIA# [id number]) ATYPICAL LYMPHOCYTE % 0 0 - 5 % [facility] (CLIA# [id number]) PLATELETS 392 140 - 400 THOUS/UL [facility] (CLIA# [id number]) BANDS # 0 0 - 750 CELLS/MCL [facility] (CLIA# [id number]) NEUTROPHILS # 8148(H) 1500 - 7800 CELLS/MCL [facility] (CLIA# [id number]) LYMPHOCYTES # 970 850 - 3900 CELLS/MCL [facility] (CLIA# [id number]) MONOCYTES # 582 200 - 950 CELLS/MCL [facility] (CLIA# [id number]) EOSINOPHILS # 0(L) 15 - 550 CELLS/MCL [facility] (CLIA# [id number]) BASOPHILS # 0 0 - 200 CELLS/MCL [facility] (CLIA# [id number]) ATYPICAL LYMPHOCYTES # 0 0 - 200 /UL [facility] (CLIA# [id number]) RDW 14.6 11.0 - 15.0 % [facility] (CLIA# [id number]) MPV 7.6 7.5 - 11.5 FL [facility] (CLIA# [id number]) 02/04/2007 02/04/2007 7:3 1 PM EDT us Abel Fierro MD LAB SAME DAY RESULT Final Resul t [facility] (CLIA# [id number]) [address] [place] [address] documented in this encounter Visit Diagnoses Diagnosis RHEUMATOID ARTHRITIS Rheumatoid arthritis documented in this encounter Care Teams Transfer Professor Relationship Specialty Start Date End Date Alberto Pacheco [address] [place] [address] PCP - General 07/19/08 05/24/13 Unknown Pcp, Non Rmg PCP - General 06/30/08 07/18/08 Charly Saxena [facility] [address] [place] [address] PCP - General 01/18/06 06/29/08 Charly Saxena [facility] [address] [place] [address] PCP - General Internal Medicine 05/25/13 07/16/17 Cheryl Calderon MD [facility] [address] [place] [address] PCP - General Internal Medicine 07/17/17 documented as of this encounter
[2024-12-22 17:34] LABS: Hematocrit 49.1 % (37.0-47.0); Hemoglobin 16.2 g/dl (12.0-16.0); Imm Gran Abs Auto 0.03 X10*3/uL (0.00-0.03); Imm Gran Pct Auto 0.3 % (0.0-0.4); Lymphocytes Absolute Auto 1.7 X10*3/uL (1.2-4.9); Mean Corpuscular HGB Conc 33.0 g/dl (31.0-35.0); Mean Corpuscular Hemoglobin 29.0 pg (27.0-33.0); Mean Corpuscular Volume 88.0 fL (80.0-98.0); NRBC Abs Auto 0.000 X10*3/uL (0.0-0.012); NRBC Pct Auto 0.0 /100WBC (0.0-0.2); Platelet Count 276 X10*3/uL (160-400); Red Blood Count 5.58 X10*6/uL (4.20-5.50); White Blood Count 9.2 X10*3/uL (4.8-10.8)
[2024-12-22 17:59] LABS: Alanine Aminotransferase 16 U/L (0-31); Albumin Level 4.0 g/dL (3.5-5.0); Alkaline Phosphatase 57 U/L (39-117); Anion Gap 12 (12-20); Aspartate Amino Transferase 21 U/L (5-31); Blood Urea Nitrogen 14 mg/dL (9-16); Calcium 9.3 mg/dL (8.4-10.2); Carbon Dioxide 26 mmol/L (22-29); Chloride 109 mmol/L (96-108); Estimated Glomerular Filt Rate > 60; Potassium 3.8 mmol/L (3.3-5.1); Sodium 143 mmol/L (135-145); Total Protein 6.6 g/dL (6.5-8.0)
[2024-12-23 08:39] LABS: HBS Num1 0.00 mIU/mL (0-7.99); HBc Num1 0.07 S/CO (0.00-0.79); HBsAGNum1 0.69 S/CO (0.00-0.99); Hepatitis A Antibody IgM 0.16 Index (0-0.79); Hepatitis B Surface Antigen Negative (Negative); ~HepC Num1 0.06 S/CO (0.00-0.79); ~Hepatitis A Antibody IgM Nonreactive (Nonreactive); ~Hepatitis B Surface Antibody NONREACTIVE (Nonreactive); ~Hepatitis C Antibody Nonreactive (Nonreactive)
[2024-12-25 22:13] LABS: TS Negative Control Passed; TS Panel A 0; TS Panel B 0; TS Positive Control Passed; TSpotTB Negative (Negative)
== END 2024-12-22 16:01 | disposition home or self-care (01) ==
LOC: HO.LAB 16:00
PROVIDERS: PCP Nurse Practitioner Family; Visit Provider Student in an Organized Health Care Education/Training Program
DX: M05.79 Rheumatoid arthritis with rheumatoid factor of multiple sites without organ or systems involvement (principal); Z01.84 Encounter for antibody response examination; Z11.59 Encounter for screening for other viral diseases; Z72.89 Other problems related to lifestyle
CPT/HCPCS: 36415; 80053; 82784; 85025; 85652; 86140; 86481; 86704; 86706; 86709; 86803; 87340

== ENCOUNTER 2024-12-23 11:21 | Outpatient (AMB) | payer MEDICARE, BC, SELFPAY ==
--- OUTSIDE RECORDS SUMMARY | 2011-10-09 | XMS_ITS | Encounter Summary ---
Author Organization [facility] Address [address] [place] [address] Phone Care Team Providers Care Cutting Inspector Name Role Phone Unavailable Primary Care Provider Unavailabl e Encounter Details Date Type Department Care Team (Late st Contact Info) Description 10/09/2011 Hospital Encounter [facility],Outside Imaging 30 [place], [place] [phone] System, Provider Not In, [place] [address] Social History Tobacco Use Types Packs/Day Years [...] 6:28 AM EDT Cecy العراقي RN * [place] Suicide Severity Rating Scale (Screener/Recent Self-Report) Question [...] Description 12/25/2024 2:30 PM EDT Office Visit [facility] Infectious Diseases [address] [place] [address] [facility] [address] [address] 01/01/2025 1:00 PM EDT Office Visit [facility] Rehabilitation Services [address] [place] [address] [facility] [address] [address] Nereyda Wong, PT 380 [place] [address] 01/07/2025 2:30 PM EDT Office Visit [facility] 10 [place] [address] Jose Thakur MD 30 [place] [address] 01/19/2025 2:30 PM EDT Office Visit [facility] 380 [place] [address] Dana Rucker, LOBBY PORTER [address] [address] Russell Wongcy, PT 380 [place] [address] 01/26/2025 2:30 PM EDT Office Visit [facility] 380 [place] [address] Dana Rucker, LOBBY PORTER [address] [address] Nereyda Wong, PT 380 [place] [address] 01/29/2025 3:00 PM EDT Office Visit [address] [place] [address] Keren Poon, HAT LINING PASTER [address] [place] [address] 02/01/2025 3:00 PM EDT Office Visit [address] [place] [address] Keren Poon, HAT LINING PASTER [address] [address] 03/02/2025 2:30 PM EST Office Visit [facility] 380 [place] [address] Dana Rucker, LOBBY PORTER 15 [facility], [address] [place] [address] Nereyda Wong, PT 380 [place] [address] 03/09/2025 2:30 PM EST Office Visit [facility] 380 [place] [address] Dana Rucker, [facility] 15 [facility], [address] [place] [address] Nereyda Wong, PT 380 [place] [address] 03/16/2025 2:30 PM EST Office Visit [facility] 380 [place] [address] Dana Rucker, [facility] 15 [facility], [address] [place] [address] Nereyda Wong, PT 380 [place] [address] 06/03/2025 2:00 PM EST Office Visit [facility] Medical [facility] [address] [place] [address] [place] [address] Keren Poon, [address] [address] documented as of this encounter Procedures Procedure [...] It is not the complete legal health record.[facility]
--- OUTSIDE RECORDS SUMMARY | 2012-10-09 | XMS_ITS | Encounter Summary ---
Author Organization [facility] Address [address] [place] [address] Phone Care Team Providers Care Wet And Dry Sugar Bin Operator Name Role Phone Unavailable Primary Care Provider Unavailabl e Encounter Details Date Type Department Care Team (Late st Contact Info) Description 10/09/2012 Hospital Encounter [facility],Outside Imaging 30 [place], [place] [phone] System, Provider Not In, [place] [address] Social History Tobacco Use Types Packs/Day Years [...] is your housing situation today? I have oj sing 07/11/2024 How many times have you [...] 6:28 AM EDT Cecy العراقي RN * [place] Suicide Severity Rating Scale (Screener/Recent Self-Report) Question [...] Description 12/25/2024 2:30 PM EDT Office Visit [facility] Infectious Diseases [address] [place] [address] Dana Rucker [facility] [address] [address] 01/01/2025 1:00 PM EDT Office Visit [facility] Rehabilitation Services [address] [place] [address] Dana Rucker [facility] [address] [address] Nereyda Wong, PT 380 [place] [address] 01/07/2025 2:30 PM EDT Office Visit [facility] 10 [place] [address] Jose Thakur MD 30 [place] [address] 01/19/2025 2:30 PM EDT Office Visit [facility] 380 [place] [address] Dana Rucker, METAL CASTER [address] [address] Russell Wongcy, PT 380 [place] [address] 01/26/2025 2:30 PM EDT Office Visit [facility] 380 [place] [address] Dana Rucker, METAL CASTER [address] [address] Nereyda Wong, PT 380 [place] [address] 01/29/2025 3:00 PM EDT Office Visit [address] [place] [address] Keren Poon, SCRAPPER [address] [place] [address] 02/01/2025 3:00 PM EDT Office Visit [address] [place] [address] Keren Poon, SCRAPPER [address] [address] 03/02/2025 2:30 PM EST Office Visit [facility] [address] [place] [address] Dana Rucker, METAL CASTER 15 [facility], [address] [place] [address] Nereyda Wong, PT 380 [place] [address] 03/09/2025 2:30 PM EST Office Visit [facility] [address] [place] [address] Dana Rucker, [facility] 15 [facility], [address] [place] [address] Nereyda Wong, PT 380 [place] [address] 03/16/2025 2:30 PM EST Office Visit [facility] 380 [place] [address] Dana Rucker, [facility] 15 [facility], [address] [place] [address] Nereyda Wong, PT 380 [place] [address] 06/03/2025 2:00 PM EST Office Visit [facility] [address] [place] [address] [place] [address] Keren Poon, [address] [address] documented as of this encounter Procedures Procedure Name Priority Date/Time Associated Diagnosis Comments BI MAMMOGRAM OUTSIDE (NO INTERPRETATION) Routine 10/09/2012 12:00 AM EDT documented in this encounter Results * Mammogram Outside (No Interpretation) (10/09/2012 12:00 AM EDT) Narrative SYSTEMGENERATED, DOCUMENTATION - 07/14/2021 1:05 PM EDT This study is for PACS [...] It is not the complete legal health record.[facility]
--- OUTSIDE RECORDS SUMMARY | 2024-12-22 14:30 | XMS_ITS | Encounter Summary ---
Author Organization [facility] Address [address] [place] [address] Phone Care Team Providers Care Special Service Officer Name Role Phone Cash Fernandes MD Unavailable [phone] Keren Poon [facility] Primary Care Provid er [place] MD Unavailable Unavailable Jose Thakur MD Unavailable [phone] Dana Rucker Unavailable [phone] Jonathan Alvarez MD Unavailable [phone] Anival Borja MD Unavailable [phone] Lyndsay Reynoso MACHINE DEBURRER Unavailable [phone] Gutierrez Pittman MD Unavailable [phone] Reason for Visit * Physical Therapy (Within 2 weeks) - Authorized Specialty Diagnoses / Procedures Referred By Cayden t Referred To Contact Physical Therapy Diagnoses Urinary incontinence, unspecified type Dana Rucker FNP [address] [facility], 2nd [place] [address] Phone: tel: fax: [email or web address]:[email or web address] [address] [place] [address] Phone: tel: Referral ID Status Reason Start Date Expiration Date V isits Requested Visits Authorized [id number] Authorized 05/21/2024 05/21/2025 99 99 Encounter Details Date Type Department Care Team (Latest Contact Info) Description 12/22/2024 2:30 PM EDT Office Visit [facility] Rehabilitation Services [address] [place] [address] Dana Rucker, MACHINE DEBURRER 15 [facility], 2nd [place] [address] Nereyda Wong, PT [address] [place] [address] [email or web address] PFD (pelvic floor dysfunction) (Primary Dx) Social [...] onset Physical Therapy. Referring MD: Dana Rucker, MACHINE DEBURRER [address] [place] [address], 2nd [place] [address] No Precautions Subjective comments: Pt reports can [...] proceed with internal assessment/treatment today. Pt offered front office java developer to sit in room and opted to [...] medical document. It is intended primarily as knlt-pl-utlu communication. It is written in medical language and may contain abbreviations or verbiage that are unfamiliar. It may appear blunt or direct. This is because medical documents areintended to carry relevant information, facts as evident, and the clinical opinion of the practitioner only as of the time of writing. Nereyda Wong PT, MSOPT, DPT, [facility] [id number] documented in this encounter Plan of Treatment Upcoming Encounters Date Type Department Care Team (Late st Contact Info) Description 12/25/2024 2:30 PM EDT Office Visit [facility] Infectious Diseases 22 [place] [address] Dana Rucker FNP [address] [place] [address] 01/01/2025 1:00 PM EDT Office Visit [address] [address] Dana Rucker, [address] [address] Nereyda Wong PT [address] [place] [address] 01/07/2025 2:30 PM EDT Office Visit [facility], Allergy and Critical Care Medicine 10 [place] [address] Jose Thakur MD 30 [place] [address] 01/19/2025 2:30 PM EDT Office Visit [facility] [address] [place] [address] Dana Rucker Leslee, [facility] 15 [facility], [address] [place] [address] Nereyda Wong, PT [address] [place] [address] 01/26/2025 2:30 PM EDT Office Visit [facility] [address] [place] [address] Dana Rucker, [facility] 15 [facility], [address] [place] [address] Nereyda Wong, PT [address] [place] [address] 01/29/2025 3:00 PM EDT Office Visit [address] [place] [address] Keren Poon, DOLLY PUSHER [address] [address] 02/01/2025 3:00 PM EDT Office Visit [address] [place] [address] Keren Poon, DOLLY PUSHER [address] [address] 03/02/2025 2:30 PM EST Office Visit [address] [address] Dana Ruckerley, [facility] 15 [facility], [address] [place] [address] Nereyda Wong, PT [address] [place] [address] [email or web address] 03/09/2025 2:30 PM EST Office Visit [facility] [address] [place] [address] Dana Rucker, [facility] [address] [address] Nereyda Wong, PT [address] [place] [address] 03/16/2025 2:30 PM EST Office Visit [facility] [address] [place] [address] Dana Rucker, [facility] [address] [address] Russell Wongcy, PT [address] [place] [address] 06/03/2025 2:00 PM EST Office Visit [facility] [address] [place] [address] [place] [address] Keren Poon CNP [address] [place] [address] documented as of this encounter Visit Diagnoses Diagnosis PFD (pelvic floor dysfunction)- Primary documented in this encounter Additional Health Concerns Assessment Noted Time PHQ-9 Depression Total Score: 5 05/09/19 24 6:55 AM EST PHQ-2 Depression Total Score: 2 05/27/19 25 1:55 PM EST documented as of this encounter Care Teams Special Service Officer Relationship Specialty Start Date End Date Keren Poon CNP [address] [place] [address] PCP - General Family Medicine 01/31/23 Cash Fernandes MD [address] [place] [address] Gastroenterology 08/23/20 [place] MD 225 [place] [address] Rheumatology 02/04/24 Jose Thakur MD 30 [place] [address] Public Safety Police Pulmonary Disease 03/17/24 Dana Rucker FNP 15 [facility], 2nd [place] [address] [email or web address] Nurse Practitioner Infectious Diseases 05/21/24 Jonathan Alvarez MD [address] [place] [address], [address] [place] [address] [email or web address] Urology 05/14/23 Anival Borja MD [address] [place] [address], [address] [place] [address] Neurologist Neurology 01/04/23 Lyndsay Reynoso FNP [address] [place] [address] Nurse Practitioner Pain Medicine 05/27/22 Gutierrez Pittman MD 40 [place] [address] Line Tender Cardiology 05/27/24 documented as of this encounter Additional Source Comments The information contained in this document represents components of the legal health record. It is not the complete legal health record.[facility]
--- NOTE | 2024-12-23 11:40 | A.OFFVIS_ITS ---
Vital Signs 12/23/24 11:47 Height 5 ft 6 in Weight 173 lb 15.115 oz BMI 28.1 BP 124/72 Blood Pressure Location Lt brachial Position Sitting Pulse 80 Pulse Source Pulse Oximeter Pulse Oximetry (%) 98 Oxygen Delivery Method Room Air Intake Visit Reasons: RA follow up Intake Note: Patient presents for RA follow up. Allergies codeine Allergy (Mild, Verified 12/23/24 11:46) Paleness Gold Salts Allergy (Mild, Verified 12/23/24 11:46) Rash Sulfa (Sulfonamide Antibiotics) Allergy (Mild, Verified 12/23/24 11:46) Swelling Medication List - Last Reconciled 12/23/24 by Samantha Kwon MD alendronate 70 mg PO QWEEK apixaban (Eliquis) 5 mg PO BID ascorbic acid (vitamin C) mg PO biotin 1 mg PO DAILY carvedilol 12.5 mg PO BID cholecalciferol (vitamin D3) 10 mcg PO DAILY cyclobenzaprine 5 mg PO TID PRN escitalopram oxalate 10 mg PO DAILY estradiol 0.01%(0.1mg/gram) grams vaginal NEEDED PRN fluticasone propionate 50 mcg/actuation 1 spray intranasal DAILY folic acid 1 mg PO DAILY furosemide mg PO levothyroxine 88 mcg PO DAILY lorazepam 0.5 mg PO Q4H PRN losartan 25 mg PO DAILY methenamine hippurate 1 g PO BID methotrexate sodium 15 mg (6 x 2.5 mg) PO QWEEK ondansetron 4 mg PO NEEDED oxybutynin chloride ER 10 mg PO DAILY potassium chloride ER 20 mEq PO BID prednisone 2.5 - 5 mg (0.5 - 1 x 5 mg) PO DAILY 90 days rituximab (Rituxan) 1,000 mg (100 mL) IV [id number] sennosides 8.6 mg PO BEDTIME sucralfate 1 g PO QID vancomycin mg PO HPI Comments Details: Patient is a 69-year-old female with hypertension, depression, asthma, hypothyroidism, chronic lower extremity edema on furosemide, chronic C diff infection and seropositive rheumatoid arthritis here today for follow up Interval History: Patient last seen 07/28/24 with me - On Rituximab 1000mg every 6 months, methotrexate 15mg weekly, prednisone 2.5mg - Meds on hold due to recurrent c diff infections - c/o knee pain - received steroid injections for bilateral pes anserine bursitis Today - Restarted her immunosuppression: Rituximab 1000mg every 6 months, methotrexate 15mg weekly, prednisone 2.5mg - S/p fecal transplant, 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 Her previous pigs feet cleaner left the practice. Her most recent pigs feet cleaner was Dr. Davis. She stated that she was diagnosed with rheumatoid arthritis back in the 70s. She had an allergic reaction to gold. She was on Remicade, Humira, Enbrel, Orencia. All of which worked for a while then lost their efficacy. She was on Xeljanz for a few years then she developed drug-induced lupus erythematosus per patient. She had diffuse blistering skin rash and hair loss. At that time 6 medicines were discontinued including Xeljanz. Most recently she received rituximab towards the end of 2020 and another rituximab course in 09/2021. Per notes patient seen to have some improvement with rituximab Patient has a history of recurrent diverticulitis. Patient has severe deforming RA s/p multiple surgeries including right elbow replacement, bilateral hand tendon surgeries, right hand MCPs surgeries, right ankle fusion. She had been on prednisone as a monotherapy for years. She is currently on 10 mg daily. She gets recurrent iritis that she treats with topical steroid eyedrops. She states that she gets those recurrent iritis every few months. Patient has been using wheelchair since 2019 due to bilateral knee pain. States that her knees give out . She can walk 1/8of a mile per on a good day. She states that the majority of her joint pain over the last few years has been her knees. She received multiple intra-articular steroid injections last year with some relief. Current Rheumatology Medication(s): Rituxumab 1000mg every 6 months Methotrexate 15mg weekly PO Folic acid 1 mg daily Prednisone 2.5mg Alendronate 70mg PO weekly [facility] Medical History Anxiety and depression Lacunar infarction Diverticulitis Diverticulosis Endometriosis Schatzki's ring Drug-induced lupus erythematosus Encounter for testing for latent tuberculosis infection Afib Osteopenia of multiple sites Rheumatoid arthritis involving multiple sites with positive rheumatoid factor Vitamin D deficiency Primary osteoarthritis of both knees Surgical History H/O unilateral oophorectomy H/O cataract extraction History of bladder suspension procedure H/O elbow replacement H/O tubal ligation History of cholecystectomy History of ankle surgery H/O hand surgery Family History Mother Diabetes Sister Diabetes Pancreatic cancer Father Pancreatic cancer Seizures Social History Household Members: Spouse Alcohol intake: never Patient Tobacco Use Status: Never used Tobacco Current occupational status: disabled Review of Systems Const Details: Review of Systems Constitutional: Denies fever, chills, weight loss ENT: Denies vision changes, eye pain or eye redness, dental caries, dry mouth GI: Denies nausea, vomiting, diarrhea, abdominal pain, change in BM Pulm: Denies SOB, THOMPSON, hemoptysis, wheezing Cards: Denies chest pain, palpitations Skin: Denies photosensitivity DIRECTOR OF DESIGN: Denies headaches MSK: as per HPI All other systems reviewed and are unremarkable except noted above Physical Exam Exam Exam: Vital signs reviewed Physical Examination CONSTITUITIONAL Patient alert and cooperative. Well appearing and in no apparent painful distress MSK Hands: ?Very deforming rheumatoid arthritis bilaterally. Right hand: Ulnar deviation at the level of the MCPs with weakness in finger extensors and hand held in chronic flexion. Left hand: Also with ulnar deviation at the level of the MCPs with we can finger extensors and hand held in flexion. Wrists: ?Bilateral wrists fused with surgical scar noted on the dorsum of bilateral wrists Elbows: Decreased range of motion bilaterally but no tenderness to palpation Shoulders: Decreased range of motion bilaterally but no rotator cuff impingement Knees: Decreased range of motion bilaterally specifically to knee extension. Swelling noted over the medial aspect of the inferior knee. Minimal to no tenderness of the knee joint proper bilaterally. But tenderness to palpation of bilateral pes anserine bursa Ankles: Right ankle fixed. Left ankle with some movement at the subtalar joint Feet: ?Bilateral feet with hammertoe and deformities. Tenderness to palpation of scattered MTPs SKIN Skin intact without rashes. Vital Signs: Last Vital Signs Pulse 80 12/23/24 11:47 BP 124/72 12/23/24 11:47 Pulse Ox 98 12/23/24 11:47 Oxygen Delivery Method Room Air 12/23/24 11:47 BMI result Body Mass Index 28.1 Office Procedures AMB Joint Injection/Aspiration Joint Injection/Aspiration Details: Procedure was explained to the patient and informed consent was obtained. ? Risks associated with the procedure were discussed with the patient including but not limited to bleeding, infection, drug reactions and reactions to the topical anesthetic. Patient made aware of signs to look out for infectious complications. The area of interest was identified and confirmed with patient. ?This was subsequently cleaned with chlorhexidine x 2. ? The area was then anesthetized using ethyl chloride spray. 40 mg Kenalog with 1 cc 1% lidocaine was injected without issue. ?Minimal to no bleeding. ?Patient tolerated procedure. Primary Site: other (right pes anserine bursa) Prep: site was prepped using aseptic technique and ethochloride spray was applied Injected: 40 mg of, Kenalog, with 1 mL of and 1% plain lidocaine Approach Used: anterior Procedure: The patient tolerated the procedure well Coding 37937 - Large joint Procedure code (CPT) selection complete AMB Joint Injection/Aspiration Joint Injection/Aspiration Details: Procedure was explained to the patient and informed consent was obtained. ? Risks associated with the procedure were discussed with the patient including but not limited to bleeding, infection, drug reactions and reactions to the topical anesthetic. Patient made aware of signs to look out for infectious complications. The area of interest was identified and confirmed with patient. ?This was subsequently cleaned with chlorhexidine x 2. ? The area was then anesthetized using ethyl chloride spray. 40 mg Kenalog with 1 cc 1% lidocaine was injected without issue. ?Minimal to no bleeding. ?Patient tolerated procedure. Primary Site: other (left pes anserine bursa) Prep: site was prepped using aseptic technique and ethochloride spray was applied Injected: 40 mg of, Kenalog, with 1 mL of and 1% plain lidocaine Approach Used: anterior Procedure: The patient tolerated the procedure well Coding 67602 - Large joint Procedure code (CPT) selection complete Office Meds lidocaine (PF) 10 mg/mL (1 %) injection solution Performing Provider: Samantha Kwon MD [place] [facility] Administered by: Marcelino Patel RN on 12/23/24 13:21 Dose Route Admin Location Dispensed Lot Number Expiration Date ND [employer] 1 mL Infiltration right pes anserine bursa 2 mL [id number] 08/26/26 6 3323-492-04 [employer] Total Dispensed Waste 2 mL 50 % Kenalog 40 mg/mL suspension for injection Performing Provider: Samantha Kwon MD Performing Location: [facility] Administered by: Marcelino Patel RN on 12/23/24 13:21 Dose Route Admin Location Dispensed Lot Number Expiration Date ND [employer] 40 mg intrabursal right pes anserine bursa 1 mL [id number] 08/26/26 00 3-05 [employer] Total Dispensed Waste 1 mL 0 % lidocaine (PF) 10 mg/mL (1 %) injection solution Performing Provider: Samantha Kwon MD Performing Location: [facility] Administered by: Marcelino Patel RN on 12/23/24 13:21 Dose Route Admin Location Dispensed Lot Number Expiration Date ND [employer] 1 mL Infiltration left pes anserine bursa 2 mL [id number] 08/26/26 63 [phone] [employer] Total Dispensed Waste 2 mL 50 % Kenalog 40 mg/mL suspension for injection Performing Provider: Samantha Kwon MD Performing Location: [facility] Administered by: Marcelino Patel RN on 12/23/24 13:21 Dose Route Admin Location Dispensed Lot Number Expiration Date ND [employer] 40 mg intrabursal left pes anserine bursa 1 mL [id number] 12/27/26 000 -05 [employer] Total Dispensed Waste 1 mL 0 % Results Reviewed Results Reviewed: Laboratory Tests 12/22/24 16:20 WBC 9.2 RBC 5.58 H Hgb 16.2 H Hct 49.1 H Plt Count 276 ESR 8 Sodium 143 Potassium 3.8 Chloride 109 H Carbon Dioxide 26 BUN 14 Creatinine 0.67 AST 21 ALT 16 Alkaline Phosphatase 57 C-Reactive Protein 0.23 Immunology labs 07/25/22 09/18/23 16:54 14:10 IgG Total 591 L IgA Total 81 IgM 35 L Rheumatoid Factor 17.9 H Cycl Citrul Peptide IgG <16 Infectious serologies 07/25/22 16:54 Hepatitis A IgM Ab Nonreactive Hep Bs Antigen Negative Hep Bs Antibody NONREACTIVE Hep B Core Total Ab Nonreactive Hepatitis C Ab (EIA) Nonreactive TB Test (T-Spot) Com Negative Assessment & Plan Assessment & Plan (1) Rheumatoid arthritis involving multiple sites with positive rheumatoid factor: Comment: dx in 1970s Gold--> allergic reaction HCQ ineffective MTX caused diarrhea and GI upset even when switched to SQ Remicade, Enbrel, Humira, all worked for sometime then lost their efficacy Orencia Celebrex not effective Xeljanz effective for a few years then DC due to DILE (is unclear we whether it was because Xeljanz as 5 other medicines were stopped) RTX 2 doses given end of 2020 & 09/2021. 08/2022,03/2023 effective, 1 dose 09/2023 Code(s): M05.79 - Rheumatoid arthritis with rheumatoid factor of multiple sites without organ or systems involvement Category: Medical Plan: #Seropositive Erosive and Deforming RA Patient is a 69-year-old female with seropositive erosive and deforming rheumatoid arthritis. Has failed several medications in the past and is currently on rituximab infusions every 6 months. Restarted Rituximab August 2024 Currently in remission Plan - Methotrexate 15mg weekly - Folic acid 1 mg daily - Rituximab 1000mg every 6 months IV - Prednisone 2.5mg daily - RTC 6 months - Labs before visit: CBC, CMP, ESR, CRP, Immunoglobulins (2) Pes anserine bursitis: Code(s): M70.50 - Other bursitis of knee, unspecified knee Qualifiers: Laterality: bilateral Qualified Code(s): M70.51 - Other bursitis of knee, right knee; M70.52 - Other bursitis of knee, left knee Plan: #Bilateral pes anserine bursitis Patient with bilateral pes anserine bursitis status post steroid injection today. (3) Encounter for monitoring rituximab therapy: Code(s): Z51.81 - Encounter for therapeutic drug level monitoring; Z79.620 - halfway (current) use of immunosuppressive biologic Plan: #Long-term Use of Rituxumab Discussed with this patient the risks and benefits of rituximab use to the management of the rheumatic condition Benefits include improved disease control and maintenance of remission Risks include hypogammaglobulinemia and increased risk of opportunistic infections, reactivation of hepatitis-B, infusion reactions Monitoring: ?Immunoglobulins, hepatitis-B serologies, CBC (4) Encounter for methotrexate monitoring: Code(s): Z51.81 - Encounter for therapeutic drug level monitoring; Z79.631 - halfway (current) use of antimetabolite agent Plan: #Long-term Current Use of Methotrexate Discussed with patient the benefits and risks of methotrexate for managing their rheumatic condition Benefits include reduced pain, reduced mortality, maintenance of remission and reduction of flares Risks include oral ulcers, photosensitivity, hepatotoxicity, hematologic toxicity, pneumonitis, flu-like symptoms (especially day after administration), nodulosis, lymphomas ? Limit alcohol and avoid Bactrim ? 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) use of systemic steroids: Code(s): Z79.52 - halfway (current) use of systemic steroids Plan: #Long-term Use of Steroids Discussed with patient the risks and benefits of steroid for managing the rheumatic condition Benefits include: - Reduced pain, improved mobility, increased participation in activities, and decreased progression of disease Risks include: - GI upset, potential ultrasound worsening or formation (especially in patients > 65 years old), elevated blood pressure/worsening hypertension, elevated blood sugar/worsening diabetes control, worsening of bone density, elevated lipids/worsening triglycerides, cataract formation, weight gain Recommended using proton pump inhibitors (PPIs) for the duration of steroid use to reduce the risk of gastric ulcers and vitamin-D daily to reduce the risk of osteoporosis Labs checked: ?A1c, T spot, hepatitis-B and C serologies Pneumocystis jiroveci prophylaxis: ?Patient with risk factors including steroids greater than 50 mg for more than 30 days, age greater than 60 years, and lung involvement from underlying rheumatic disease requires prophylaxis and will be given so Plan I spent 32 minutes reviewing the record and labs, taking a history, examining the patient, discussing the treatment plan, ordering diagnostic work up, and documenting in the medical record Orders: Orders AMB Joint Injection/Aspiration Today M70.51 - Other bursitis of knee, right knee, M70.52 - Other bursitis of knee, left knee AMB Joint Injection/Aspiration Today M70.51 - Other bursitis of knee, right knee, M70.52 - Other bursitis of knee, left knee Coding Level of Care Code Est Pt Level 3 (19462) Complex EM visit Add On G2211 Diagnoses Rheumatoid arthritis involving multiple sites with positive rheumatoid factor M05.79 Pes anserinus bursitis of both knees M70.51; M70.52 Laterality: bilateral Encounter for monitoring rituximab therapy Z51.81; Z79.620 Encounter for methotrexate monitoring Z51.81; Z79.631 halfway (current) use of systemic steroids Z79.52 CPT Codes Coding - 18716 Large joint: 40481 - Large joint ([id number]) Coding - 57045 Large joint: 84646 - Large joint ([id number])
[2024-12-23 11:47] VITALS: BP 124/72; PULSE 80; O2SAT 98; BMI 28.1
--- OUTSIDE RECORDS SUMMARY | 2024-12-23 12:13 | XMS_ITS | Encounter Summary ---
Author Organization [facility] Address [address] [place] [address] Phone Care Team Providers Care Advertising Assistant Manager Name Role Phone Cash Fernandes MD Unavailable [phone] Keren Poon [facility] Primary Care Provid er Chavo Jack MD Unavailable Willi Wells MD Unavailable Unavailable Jose Thakur MD Unavailable [phone] Dana Rucker ACADEMIC COMPUTING DIRECTOR Unavailable Jonathan Alvarez MD Unavailable [phone] Anival Borja MD Unavailable Lyndsay Reynoso ACADEMIC COMPUTING DIRECTOR Unavailable [phone] Gutierrez Pittman MD Unavailable [phone] Encounter Details Date Type Department Care Team (Late st Contact Info) Description 01/06/2024 Procedure Pass [facility] Endoscopy Admitting Dept [facility] Department [address] [place] [id number] Social History Tobacco Use Types Packs/Day Years [...] Description 12/25/2024 2:30 PM EDT Office Visit [facility] Infectious Diseases [address] [place] [address] Dana Rucker FNP [address] [address] 01/01/2025 1:00 PM EDT Office Visit [address] [address] Dana Rucker FNP [address] [address] Nereyda Wong, PT [address] [place] [address] 01/07/2025 2:30 PM EDT Office Visit [facility] Pulmonary, Allergy and Critical Care Medicine [address] [place] [address] Jose Thakur MD [address] [place] [address] 01/19/2025 2:30 PM EDT Office Visit [facility] [address] [place] [address] Dana Rucker FNP [address] [address] Nereyda Wong, PT [address] [place] [address] 01/26/2025 2:30 PM EDT Office Visit [facility] [address] [place] [address] Dana Rucker, ACADEMIC COMPUTING DIRECTOR [address] [address] Nereyda Wong, PT [address] [place] [address] 01/29/2025 3:00 PM EDT Office Visit [address] [place] [address] Keren Poon, HOME SECURITY ALARM INSTALLER [address] [place] [address] 02/01/2025 3:00 PM EDT Office Visit [address] [place] [address] Keren Poon, HOME SECURITY ALARM INSTALLER [address] [place] [address] 03/02/2025 2:30 PM EST Office Visit [address] [address] Dana Rucker, [facility] 15 [facility], [address] [place] [address] Nereyda Wong, PT [address] [place] [address] 03/09/2025 2:30 PM EST Office Visit [address] [address] Dana Rucker, ACADEMIC COMPUTING DIRECTOR 15 [facility], [address] [place] [address] Nereyda Wong, PT [address] [place] [address] 03/16/2025 2:30 PM EST Office Visit [facility] Rehabilitation Services [address] [place] [address] Chaim Dana Jaimeley, ACADEMIC COMPUTING DIRECTOR 15 [facility], 2nd [place] [address] Nereyda Wong, PT [address] [place] [address] 06/03/2025 2:00 PM EST Office Visit [facility] [address] [place] [address] [place] [address] Keren Poon, [facility] 170 [facility], [address] [place] [address] documented as of this encounter Visit Diagnoses [...] documented as of this encounter Care Teams Advertising Assistant Manager Relationship Specialty Start Date End Date Keren Poon CNP [address] [place] [phone] [email or web address] PCP - General Family Medicine 01/31/23 Cash Fernandes MD [address] [place] [address] [email or web address] Gastroenterology 08/23/20 Chavo Jack MD [address] [place] [address] [email or web address] Insurance Assigned Provider 08/03/23 05/04/24 Willi Wells MD [address] [facility] [place] [address] Rheumatology 02/04/24 Jose Thakur MD [address] [place] [address] [email or web address] Mapping Editor Pulmonary Disease 03/17/24 Dana Rucker FNP [address] [address] [email or web address] Nurse Practitioner Infectious Diseases 05/21/24 Jonathan Alvarez MD [address] [place] [address], [address] [place], [place] [address] [email or web address] Urology 05/14/23 Anival Borja MD [address] [place] [address], [address] [place] [address] [email or web address] Neurologist Neurology 01/04/23 Lyndsay Reynoso FNP [address] [place] [address] Nurse Practitioner Pain Medicine 05/27/22 Gutierrez Pittman MD [address] [place] [phone] Lens Grinding Machine Operator Cardiology 05/27/24 documented as of this encounter Additional Source Comments The information contained in this document represents components of the legal health record. It is not the complete legal health record.[facility]
--- OUTSIDE RECORDS SUMMARY | 2024-12-23 12:13 | XMS_ITS | Encounter Summary ---
Author Organization [facility] Address [address] [place] [address] Phone Care Team Providers Care Sky Line Yarder Name Role Phone Cash Fernandes MD Unavailable [phone] Seven Menchaca MD Unavailable Chavo Jack MD Primary Care Provider Keren Poon [facility] Primary Care Provid er Chavo Jack MD Unavailable Willi Wells MD Unavailable Unavailable Jose Thakur MD Unavailable [phone] Dana Rucker DIALER Unavailable Jonathan Alvarez MD Unavailable [phone] Anival Borja MD Unavailable [phone] Lyndsay Reynoso DIALER Unavailable [phone] Gutierrez Pittman MD Unavailable [phone] Encounter Details Date Type Department Care Team (Late st Contact Info) Description 01/08/2023 Procedure Pass [facility] Endoscopy Admitting Dept Virtual Department [address] [place] [address] Social History Tobacco Use Types Packs/Day Years [...] 12/25/2024 2:30 PM EDT Office Visit [facility] Infectious Diseases [address] [place] [address] Dana Rucker FNP [address] [address] 01/01/2025 1:00 PM EDT Office Visit [address] [address] Dana Rucker FNP [address] [address] Nereyda Wong, PT [address] [place] [address] 01/07/2025 2:30 PM EDT Office Visit [facility] Pulmonary, Allergy and Critical Care Medicine [address] [place] [address] Jose Thakur MD 30 [place] [address] 01/19/2025 2:30 PM EDT Office Visit [address] [address] Dana Rucker FNP [address] [address] Nereyda Wong, PT [address] [place] [address] 01/26/2025 2:30 PM EDT Office Visit [address] [address] Dana Rucker, [facility] 15 [facility], [address] [place] [address] Nereyda Wong, PT [address] [place] [address] 01/29/2025 3:00 PM EDT Office Visit [address] [place] [address] Keren Poon, CO FOUNDER AND DIRECTOR [address] [place] [address] 02/01/2025 3:00 PM EDT Office Visit [address] [place] [address] Keren Poon, [employer] FOUNDER AND DIRECTOR [address] [place] [address] 03/02/2025 2:30 PM EST Office Visit [address] [address] Dana Ruckerley, [address], [address] [place] [address] Nereyda Wong, PT [address] [place] [address] 03/09/2025 2:30 PM EST Office Visit [address] [address] Dana Ruckerley, [facility] 15 [facility], [address] [place] [address] Nereyda Wong, PT 380 [place] [address] 03/16/2025 2:30 PM EST Office Visit [facility] [address] [place] [address] Dana Rucker, DIALER 15 [facility], [address] [place] [address] Nereyda Wong, PT [address] [place] [address] 06/03/2025 2:00 PM EST Office Visit [facility] [address] [place] [address] [place] [address] Keren Poon, ORI 170 [facility], [address]nd [place] [address] [email or web address] documented as of this encounter Visit Diagnoses [...] documented as of this encounter Care Teams Sky Line Yarder Relationship Specialty Start Date End Date Chavo Jack MD [address] [place] [address] PCP - General Internal Medicine 09/18/22 01/30/23 Keren Poon CNP [address] [place] [address], 2nd [place] [address] [email or web address] PCP - General Family Medicine 01/31/23 Cash Fernandes MD [address] [place] [address] Gastroenterology 08/23/20 Seven Menchaca MD [address] [place] [address] Insurance Assigned Provider 08/04/22 08/03/23 Chavo Jack MD [address] [place] [address] Insurance Assigned Provider 08/03/23 05/04/24 Willi Wells MD [address] [place] [address] [place] [address] Rheumatology 02/04/24 Jose Thakur MD 30 [place] [address] Static Balancer Pulmonary Disease 03/17/24 Dana Rucker FNP [address] [place] [address] 2nd [place] [address] Nurse Practitioner Infectious Diseases 05/21/24 [place] [address] [place] [address], [address] [place] [address] Urology 05/14/23 Anival Borja MD [address] [place] [address], [address] [place] [address] Neurologist Neurology 01/04/23 Lyndsay Reynoso FNP [address] [place] [address] Nurse Practitioner Pain Medicine 05/27/22 Gutierrez Pittman MD 40 [place] [address] Network Intelligence Analyst Cardiology 05/27/24 documented as of this encounter Additional Source Comments The information contained in this document represents components of the legal health record. It is not the complete legal health record.[facility]
--- OUTSIDE RECORDS SUMMARY | 2024-12-23 12:13 | XMS_ITS | Encounter Summary ---
Author Organization [facility] Address [address] [place] [address] Care Team Providers Care Religious Education Coordinator Name Role Phone Cheryl Calderon MD Primary Care Provider [phone] Reason for Visit * Reason Comments E-prescribing Refill Request Encounter Details Date Type Department Care Team (Late st Contact Info) Description 06/08/2019 Refill [facility] Rheumatology [address] [place] [phone] Melanie Aguirre MD E-prescribing Refill Request Social [...] Phone 06/19/19 1:45 PM Melanie Aguirre MD [facility] Rheumatology [phone] 08/04/19 2:40 PM Liliana Calderon NP [facility] Hematology/Oncology [phone] 11/10/19 1:30 PM Lyndsay Lopez MD [facility] Ophthalmology [phone] Pertinent lab results: Lab Results Component Value [...] Elbow pain 06/03/2012 ??? Rheumatoid arthritis(714.0) ([facility]) 09/29/2010 Followed by rheumatology treated with methotrexate, [...] on filedocumented in this encounter Care Teams Religious Education Coordinator Relationship Specialty Start Date End Date Cheryl Calderon MD [facility] Adult Medicine [address] [place] [address] PCP - General Internal Medicine 07/17/17 documented as of this encounter
--- OUTSIDE RECORDS SUMMARY | 2024-12-23 12:14 | XMS_ITS | Encounter Summary ---
Author Organization [facility] Address [address] [place] [address] Care Team Providers Care Scrubber System Attendant Name Role Phone Charly Saxena Primary Care Provider Cheryl Calderon MD Primary Care Provider [phone] Encounter Details Date Type Department Care Team (Late st Contact Info) Description 02/10/2015 Orders Only [facility] Rheumatology [address] [place] [address] Abel Fierro MD [address] [place] [address] Social History Tobacco Use Types Packs/Day Years [...] EDT) C reactive protein 0.45 <0.80 mg/dL [facility] Comment: {C-REACTIVE PROTEIN {[id number]) Please be advised that patients taking Carboxypenicillins may exhibit falsely decreased C-Reactive Protein levels due to an analytical interference in this assay. 02/10/2015 12:2 9 PM EDT 02/10/2015 9:25 PM EDT Narrative Resulting Agency Comment [id number] us Abel Fierro MD LABORATORY Final Result Performing Organization Address [facility] Co de Phone Number [facility] [address] [place] [address] * ERYTHROCYTE SEDIMENTATION RATE (ESR), WESTERGREN (02/10/2015 12:29 PM EDT) Sedimentation Rate Westegren (ESR) 6 < OR = 30 mm/h [facility] Comment:{SED RATE BY MODIFIE D WESTERGREN {[id number]) 02/10/2015 12:2 9 PM EDT 02/10/2015 9:25 PM EDT Narrative Resulting Agency Comment [id number] us Abel Fierro MD LAB SAME DAY RESULT Final Resul t Performing Organization Address [facility] de Phone Number [facility] [address] [place] [address] * CREATININE WITH GLOMERULAR FILTRATION RATE, ESTIMATED (EGFR) (02/10/2015 12:29 PM EDT) Creatinine 0.80 0.50 - 0.99 mg/dL [facility] Comment: {CREATININE {[id number]) For patients >49 years of age, the reference limit for Creatinine is approximately 13% higher for people identified as -[place] Islander. GFR 80 > OR = 60 mL/min/1. 73m2 [facility] Comment:{eGFR NON-AFR. AMERI CAN {[id number]) GFR () 93 > OR = 60 mL/min/1. 73m2 [facility] Comment:{eGFR AMERIC AN {[id number]) 02/10/2015 12:2 9 PM EDT 02/10/2015 9:25 [...] needs for GFR calculation. Resulting Agency Comment [id number] Abel Fierro MD LAB SAME DAY RESULT Final Resul t Performing Organization Address [facility] de Phone Number [facility] [address] [place] [address] * (ABNORMAL) ALANINE AMINOTRANSFERASE (ALT), SERUM (02/10/2015 12:29 PM EDT) ALT (SGPT) 37(H) 6 - 29 U/L [facility] Comment:{ALT {[id number]) 02/10/2015 12:2 9 PM EDT 02/10/2015 9:25 PM EDT Narrative Resulting Agency Comment [id number] Abel Fierro MD LAB SAME DAY RESULT Final Resul t Performing Organization Address [facility] de Phone Number [facility] [address] [place] [address] * ASPARTATE AMINOTRANSFERASE (AST), SERUM (02/10/2015 12:29 PM EDT) AST (SGOT) 26 10 - 35 U/L [facility] Comment:{AST {[id number]) 02/10/2015 12:2 9 PM EDT 02/10/2015 9:25 PM EDT Narrative Resulting Agency Comment [id number] Abel Fierro MD LAB SAME DAY RESULT Final Resul t Performing Organization Address [facility] de Phone Number [facility] [address] [place] [address] * (ABNORMAL) CBC INCLUDES DIFFERENTIAL AND PLATELET COUNT (02/10/2015 12:29 PM EDT) WBC 10.5 3.8 - 10.8 Thousand/ uL [facility] Comment:{WHITE BLOOD CELL CO UNT {[id number]) RBC 6.07(H) 3.80 - 5.10 Million/u L [facility] Comment:{RED BLOOD CELL COUN T {[id number]) Hemoglobin 15.7(H) 11.7 - 15.5 g/dL [facility] Comment:{HEMOGLOBIN {[id number]) Hematocrit 48.6(H) 35.0 - 45.0 % [facility] Comment:{HEMATOCRIT {[id number]) MCV 80.1 80.0 - 100.0 fL [facility] Comment:{MCV {[id number]) MCH 25.8(L) 27.0 - 33.0 pg [facility] Comment:{MCH {[id number]) MCHC 32.2 32.0 - 36.0 g/dL [facility] Comment:{MCHC {[id number]) RDW 15.6(H) 11.0 - 15.0 % [facility] Comment:{RDW {[id number]) PLT 347 140 - 400 Thousand/ uL [facility] Comment:{PLATELET COUNT {[id number]) MPV 7.6 7.5 - 11.5 fL [facility] Comment:{MPV {[id number]) Neutrophils # 7455 1500 - 7800 cells/uL [facility] Comment:{ABSOLUTE NEUTROPHIL S {[id number]) Lymphocytes # 1932 850 - 3900 cells/uL [facility] Comment:{ABSOLUTE LYMPHOCYTE S {[id number]) Monocytes # 861 200 - 950 cells/uL [facility] Comment:{ABSOLUTE MONOCYTES {[id number]) Eosinophils # 221 15 - 500 cells/uL [facility] Comment:{ABSOLUTE EOSINOPHIL S {[id number]) Basophils # 32 0 - 200 cells/uL [facility] Comment:{ABSOLUTE BASOPHILS {[id number]) Neutrophils % 71.0 % [facility] Comment:{NEUTROPHILS {[id number]) Lymphocytes % 18.4 % [facility] Comment:{LYMPHOCYTES {[id number]) Monocytes % 8.2 % [facility] Comment:{MONOCYTES {[id number]) Eosinophils % 2.1 % [facility] Comment:{EOSINOPHILS {[id number]) Basophils % 0.3 % [facility] Comment:{BASOPHILS {[id number]) 02/10/2015 12:2 9 PM EDT 02/10/2015 9:25 PM EDT Narrative Resulting Agency Comment [id number] us Abel Fierro MD LAB SAME DAY RESULT Final Resul t [facility] [address] [place] [address] documented in this encounter Visit Diagnoses Diagnosis Rheumatoid arthritis involving both feet, unspecified rheumatoid factor presence (HCC) [M06.071, M06.072] documented in this encounter Care Teams Scrubber System Attendant Relationship Specialty Start Date End Date Charly Saxena [facility] [address] [place] [address] PCP - General Internal Medicine 05/25/13 07/16/17 Cheryl Calderon MD [facility] [address] [place] [address] PCP - General Internal Medicine 07/17/17 documented as of this encounter
--- OUTSIDE RECORDS SUMMARY | 2024-12-23 12:14 | XMS_ITS | Clinical Summary ---
Author Organization [facility] Address [address] [place] [address] Care Team Providers Care Network Operations Center Technician Name Role Phone Cheryl Calderon MD Primary Care Provider [phone] Allergies Active Allergy Reactions Criticality Noted Date [...] Immunization Administration Dates Next Due COVID-19, mRNA ([employer] Pre F all 2022) Monovalent, 30 mcg/0.3 ml 04/11/2021,10/03/2020,07/08/2020 Covid-19, mRNA ([employer] Pre F all 2022) Bivalent, 30 mcg/0.3 ml mohan-sucrose (12+) dose 04/13/2022 Covid-19, mRNA ([employer] Pre F all 2022) Monovalent, 30 mcg/0.3 [...] (Zostavax) Discontinued Procedures * Due to [place] state [...] Health Maintenance Results * Due to [place] state [...] a test for HCV RNA (test code 72055) is suggested. For additional information please refer to http://education.fitkit.Cognotion/faq/GHU19o3 (This link is being provided for informational/ educational purposes only.) 12/23/2018 11:3 2 AM EDT 12/23/2018 11:23 PM EDT Narrative Resulting Agency Comment [id number] us Liliana Calderon NP LABORATORY Final Result [facility] [address] [place] [address] * DXA BONE DENSITY STUDY AXIAL (LSSPINE, [...] DUAL-ENERGY X-RAY ABSORPTIOMETRY (DXA) SCAN: DXA MODEL: [facility] in fast scan mode RISK FACTORS: The [...] 100 - 199 MG/DL [facility] (CLIA# [id number]) TRIGLYCERIDES 132 30 - 149 MG/DL [facility] (CLIA# [id number]) HDL-CHOLESTEROL 85(H) 40 - 77 MG/DL [facility] (CLIA# [id number]) LDL-CHOLESTEROL 80 62 - 130 MG/DL [facility] (CLIA# [id number]) Comment: RISK CATEGORY: LDL-CHOLESTEROL GOAL CHD AND CHD RISK EQUIVALENTS: <100 MULTIPLE (2+) FACTORS: <130 ZERO TO ONE RISK FACTOR: <160 CHD RELATIVE RISK RATIO (TOTAL/HDL) 2.25 [facility] (CLIA# [id number]) Comment:(< .25 X AVERAGE) 11/03/2004 9:46 AM EDT 11/03/2004 9:46 AM EDT Narrative [facility] (CLIA# [id number]) - 11/03/2004 9:46 AM EDT FASTING Abel Fierro MD LABORATORY Final Result [facility] (CLIA# [id number]) [address] [place] [address] * XRAY CHEST 2 VIEWS PA & LAT (06/28/2003 1:26 PM EST) Pathologist [facility] RADIOLOGY REPORT Chest: Lungs and pleural reflections [...] Conclusion: No acute disease. [facility] (CLIA# [id number]) Anatomical Region Laterality Modality Other 06/28/2003 1:26 [...] the interpreting radiologist. BI-RADS Category 1: Negative [facility] (CLIA# [id number]) LETTER SENT A mammogram letter type A N was printed on 07/08/2001 [facility] (CLIA# [id number]) Anatomical Region Laterality Modality Other 06/25/2001 1:42 [...] is suggested. No definite polyp was seen. [facility] (CLIA# [id number]) Anatomical Region Laterality Modality Other 06/07/2000 8:40 AM EST Narrative 06/07/2000 2:57 PM EST Reason for Study/History: ABD PAIN Test(s) processed by : IDAime RIVERA Jfef Puente PA-C CONTRAST STUDY- OTHER Elana l Result * PAP SMEAR (12/06/1999 12:00 AM EDT) SPERM SOURCE VCE [facility] (CLIA# [id number]) NUMBER OF SLIDES RECEIVED: 1 [facility] (CLIA# [id number]) HISTORY CLINICAL [facility] (CLIA# [id number]) Comment:Menopause [address] [facility] (CLIA# [id number]) Comment:Endocervical cells a re present SPECIMEN ADEQUACY: [facility] (CLIA# [id number]) Comment:Satisfactory specime n for Cytologic evaluation. PATHOLOGY DIAGNOSIS [facility] (CLIA# [id number]) Comment:WITHIN NORMAL LIMITS PATHOLOGY GROUP: [facility] (CLIA# [id number]) Comment: [address] [place]. [address] 12/06/1999 12/06/1999 Chloe Law MD PATHOLOGY Final Resul t [facility] (CLIA# [id number]) [address] [place] [address] from Last 3 Months or Most Recently Relevant to Health Maintenance Insurance MEDICARE PART B BC FFS FEDERAL Care Teams Network Operations Center Technician Relationship Specialty Start Date End Date Cheryl Calderon MD [facility] Adult Medicine [address] [place] [address] PCP - General Internal Medicine 07/17/17
--- OUTSIDE RECORDS SUMMARY | 2024-12-23 12:14 | XMS_ITS | Encounter Summary ---
Author Organization [facility] Address [address] [place] [address] Care Team Providers Care Motor Carrier Inspector Name Role Phone Charly Saxena Primary Care Provider [phone] Cheryl Calderon MD Primary Care Provider [phone] Reason for Visit * Reason Comments F/u From OV Post injection f/u Encounter Details Date Type Department Care Team (Late st Contact Info) Description 10/24/2015 Telephone [facility] Rheumatology [address] [place] [address] Abel Fierro MD [address] [place] [address] F/u From OV (Post injection f/u ) [...] on filedocumented in this encounter Care Teams Motor Carrier Inspector Relationship Specialty Start Date End Date Charly Saxena [facility] [address] [place] [address] PCP - General Internal Medicine 05/25/13 07/16/17 Cheryl Calderon MD [facility] [address] [place] [address] PCP - General Internal Medicine 07/17/17 documented as of this encounter
--- OUTSIDE RECORDS SUMMARY | 2024-12-23 12:14 | XMS_ITS | Encounter Summary ---
Author Organization [facility] Address [address] [place] [address] Care Team Providers Care Circulation Worker Name Role Phone Charly Saxena Primary Care Provider Cheryl Calderon MD Primary Care Provider [phone] Encounter Details Date Type Department Care Team (Late st Contact Info) Description 07/29/2014 Orders Only [facility] Rheumatology [address] [place] [address] Abel Fierro MD [address] [place] [address] Social History Tobacco Use Types Packs/Day Years [...] <0.80 mg/dL [facility] Comment: {C-REACTIVE PROTEIN {[id number]) Please be advised that patients taking Carboxypenicillins may exhibit falsely decreased C-Reactive Protein levels due to an analytical interference in this assay. 07/29/2014 11:1 9 AM EDT 07/29/2014 4:29 PM EDT Narrative Resulting Agency Comment [id number] us Abel Fierro MD LABORATORY Final Result [facility] [address] [place] [address] * ERYTHROCYTE SEDIMENTATION RATE (ESR), KUNAL (07/29/2014 11:19 AM EDT) Sedimentation Rate Westegren (ESR) 14 < OR = 30 mm/h [facility] Comment:{SED RATE BY MODIFIE D SHAJIREN {[id number]) 07/29/2014 11:1 9 AM EDT 07/29/2014 4:29 PM EDT Narrative Resulting Agency Comment [id number] us Abel Fierro MD LAB SAME DAY RESULT Final Resul t Performing Organization Address [facility] Co de Phone Number [facility] [address] [place] [address] * CREATININE WITH GLOMERULAR FILTRATION RATE, ESTIMATED (EGFR) (07/29/2014 11:19 AM EDT) Creatinine 0.93 0.50 - 1.05 mg/dL [facility] Comment: {CREATININE {[id number]) For patients >49 years of age, the reference limit for Creatinine is approximately 13% higher for people identified as -Kenyan. GFR 67 > OR = 60 mL/min/1. 73m2 [facility] Comment:{eGFR NON-AFR. AMERI CAN {[id number]) GFR () 78 > OR = 60 mL/min/1. 73m2 [facility] Comment:{eGFR AMERIC AN {[id number]) 07/29/2014 11:1 9 AM EDT 07/29/2014 4:29 [...] needs for GFR calculation. Resulting Agency Comment [id number] us Abel Fierro MD LAB SAME DAY RESULT Final Resul t Performing Organization Address City/[facility]/ZIP Co de Phone Number [facility] [address] [place] [address] * ALANINE AMINOTRANSFERASE (ALT), SERUM (07/29/2014 11:19 AM EDT) ALT (SGPT) 19 6 - 29 U/L [facility] Comment:{ALT {[id number]) 07/29/2014 11:1 9 AM EDT 07/29/2014 4:29 PM EDT Narrative Resulting Agency Comment [id number] us Abel Fierro MD LAB SAME DAY RESULT Final Resul t Performing Organization Address City/[facility] Co de Phone Number [facility] [address] [place] [address] * ASPARTATE AMINOTRANSFERASE (AST), SERUM (07/29/2014 11:19 AM EDT) AST (SGOT) 17 10 - 35 U/L [facility] Comment:{AST {[id number]) 07/29/2014 11:1 9 AM EDT 07/29/2014 4:29 PM EDT Narrative Resulting Agency Comment [id number] us Abel Fierro MD LAB SAME DAY RESULT Final Resul t Performing Organization Address [facility] de Phone Number [facility] [address] [place] [address] * (ABNORMAL) CBC INCLUDES DIFFERENTIAL AND PLATELET COUNT (07/29/2014 11:19 AM EDT) WBC 10.9(H) 3.8 - 10.8 Thousand/ uL [facility] Comment:{WHITE BLOOD CELL CO UNT {[id number]) RBC 5.63(H) 3.80 - 5.10 Million/u L [facility] Comment:{RED BLOOD CELL COUN T {[id number]) Hemoglobin 14.8 11.7 - 15.5 g/dL [facility] Comment:{HEMOGLOBIN {[id number]) Hematocrit 45.7(H) 35.0 - 45.0 % [facility] Comment:{HEMATOCRIT {[id number]) MCV 81.1 80.0 - 100.0 fL [facility] Comment:{MCV {[id number]) MCH 26.2(L) 27.0 - 33.0 pg [facility] Comment:{MCH {[id number]) MCHC 32.3 32.0 - 36.0 g/dL [facility] Comment:{MCHC {[id number]) RDW 15.5(H) 11.0 - 15.0 % [facility] Comment:{RDW {[id number]) PLT 331 140 - 400 Thousand/ uL [facility] Comment:{PLATELET COUNT {[id number]) MPV 7.3(L) 7.5 - 11.5 fL [facility] Comment:{MPV {[id number]) Neutrophils # 5875 1500 - 7800 cells/uL [facility] Comment:{ABSOLUTE NEUTROPHIL S {[id number]) Lymphocytes # 3706 850 - 3900 cells/uL [facility] Comment:{ABSOLUTE LYMPHOCYTE S {[id number]) Monocytes # 981(H) 200 - 950 cells/uL [facility] Comment:{ABSOLUTE MONOCYTES {[id number]) Eosinophils # 294 15 - 500 cells/uL [facility] Comment:{ABSOLUTE EOSINOPHIL S {[id number]) Basophils # 44 0 - 200 cells/uL [facility] Comment:{ABSOLUTE BASOPHILS {[id number]) Neutrophils % 53.9 % [facility] Comment:{NEUTROPHILS {[id number]) Lymphocytes % 34.0 % [facility] Comment:{LYMPHOCYTES {[id number]) Monocytes % 9.0 % [facility] Comment:{MONOCYTES {[id number]) Eosinophils % 2.7 % [facility] Comment:{EOSINOPHILS {[id number]) Basophils % 0.4 % [facility] Comment:{BASOPHILS {[id number]) 07/29/2014 11:1 9 AM EDT 07/29/2014 4:29 PM EDT Narrative Resulting Agency Comment [id number] us Abel Fierro MD LAB SAME DAY RESULT Final Resul t [facility] [address] [place] [address] documented in this encounter Visit Diagnoses Diagnosis Rheumatoid arthritis(714.0) Rheumatoid arthritis documented in this encounter Care Teams Circulation Worker Relationship Specialty Start Date End Date Charly Saxena [facility] [place], [place] [address] PCP - General Internal Medicine 05/25/13 07/16/17 Cheryl Calderon MD [address] [address] PCP - General Internal Medicine 07/17/17 documented as of this encounter
--- OUTSIDE RECORDS SUMMARY | 2024-12-23 12:14 | XMS_ITS | Encounter Summary ---
Author Organization [facility] Address [address] [place] [address] Care Team Providers Care Furnace Repairer Name Role Phone Alberto Pacheco Primary Care Provider [phone] Charly Saxena Primary Care Provider [phone] Cheryl Calderon MD Primary Care Provider Reason for Visit * Reason Comments E-prescribing Refill Request Encounter Details Date Type Department Care Team (Late st Contact Info) Description 05/11/2013 Refill [facility] Rheumatology [address] [place] [phone] Anival Bales MD E-prescribing Refill Request Social [...] of her nearly 4-year-old grandson Harshil in [place]. Next OV: Future Appointments Date Time Provider [...] on filedocumented in this encounter Care Teams Furnace Repairer Relationship Specialty Start Date End Date Alberto Pacheco [address] [place] [address] PCP - General 07/19/08 05/24/13 Charly Saxena [facility] [address] [place] [address] PCP - General Internal Medicine 05/25/13 07/16/17 Cheryl Calderon MD [facility] Adult Medicine [address] [place] [address] PCP - General Internal Medicine 07/17/17 documented as of this encounter
--- OUTSIDE RECORDS SUMMARY | 2024-12-23 12:14 | XMS_ITS | Encounter Summary ---
Author Organization [facility] Address [address] [place] [address] Care Team Providers Care Lay Midwife Name Role Phone Alberto Pacheco Primary Care Provider [phone] Charly Saxena Primary Care Provider [phone] Cheryl Calderon MD Primary Care Provider [phone] Encounter Details Date Type Department Care Team (Late st Contact Info) Description 10/28/2012 Orders Only [facility] Rheumatology [address] [place] [address] Abel Fierro MD [address] [place] [address] Social History Tobacco Use Types Packs/Day Years [...] - 1.05 mg/dL [facility] Comment: {CREATININE {[id number]) For patients >49 years of age, the reference limit for Creatinine is approximately 13% higher for people identified as -Citizen Of [place]. GFR 91 > OR = 60 mL/min/1. 73m2 [facility] Comment:{eGFR NON-AFR. AMERI CAN {[id number]) GFR () 106 > OR = 60 mL/min/1. 73m2 [facility] Comment:{eGFR AMERIC AN {[id number]) 10/28/2012 2:15 PM EDT 10/28/2012 11:59 PM [...] needs for GFR calculation. Resulting Agency Comment [id number] us Abel Fierro MD LAB SAME DAY RESULT Final Resul t [facility] [address] [place] [address] * ALANINE AMINOTRANSFERASE (ALT), SERUM (10/28/2012 2:15 PM EDT) ALT (SGPT) 21 6 - 29 U/L [facility] Comment:{ALT {[id number]) 10/28/2012 2:15 PM EDT 10/28/2012 11:59 PM EDT Narrative Resulting Agency Comment [id number] Abel Fierro MD LAB SAME DAY RESULT Final Resul t Performing Organization Address City/[facility]/ZIP Co de Phone Number [facility] [address] [place] [address] * ASPARTATE AMINOTRANSFERASE (AST), SERUM (10/28/2012 2:15 PM EDT) Pathologist [facility] AST (SGOT) 19 10 - 35 U/L [facility] Comment:{AST {[id number]) 10/28/2012 2:15 PM EDT 10/28/2012 11:59 PM EDT Narrative Resulting Agency Comment [id number] Abel Fierro MD LAB SAME DAY RESULT Final Resul t Performing Organization Address [facility] Co de Phone Number [facility] [address] [place] [address] * (ABNORMAL) CBC INCLUDES DIFFERENTIAL AND PLATELET COUNT (10/28/2012 2:15 PM EDT) Pathologist [facility] WBC 10.8 3.8 - 10.8 Thousand/ uL [facility] Comment:{WHITE BLOOD CELL CO UNT {[id number]) RBC 5.06 3.80 - 5.10 Million/u L [facility] Comment:{RED BLOOD CELL COUN T {[id number]) Hemoglobin 12.9 11.7 - 15.5 g/dL [facility] Comment:{HEMOGLOBIN {[id number]) Hematocrit 41.7 35.0 - 45.0 % [facility] Comment:{HEMATOCRIT {[id number]) MCV 82.5 80.0 - 100.0 fL [facility] Comment:{MCV {[id number]) MCH 25.5(L) 27.0 - 33.0 pg [facility] Comment:{MCH {[id number]) MCHC 31.0(L) 32.0 - 36.0 g/dL [facility] Comment:{MCHC {[id number]) RDW 14.6 11.0 - 15.0 % [facility] Comment:{RDW {[id number]) PLT 367 140 - 400 Thousand/ uL [facility] Comment:{PLATELET COUNT {[id number]) MPV 7.3(L) 7.5 - 11.5 fL [facility] Comment:{MPV {[id number]) Neutrophils # 5692 1500 - 7800 cells/uL [facility] Comment:{ABSOLUTE NEUTROPHIL S {[id number]) Lymphocytes # 3964(H) 850 - 3900 cells/uL [facility] Comment:{ABSOLUTE LYMPHOCYTE S {[id number]) Monocytes # 832 200 - 950 cells/uL [facility] Comment:{ABSOLUTE MONOCYTES {[id number]) Eosinophils # 248 15 - 500 cells/uL [facility] Comment:{ABSOLUTE EOSINOPHIL S {[id number]) Basophils # 65 0 - 200 cells/uL [facility] Comment:{ABSOLUTE BASOPHILS {[id number]) Neutrophils % 52.7 % [facility] Comment:{NEUTROPHILS {[id number]) Lymphocytes % 36.7 % [facility] Comment:{LYMPHOCYTES {[id number]) Monocytes % 7.7 % [facility] Comment:{MONOCYTES {[id number]) Eosinophils % 2.3 % [facility] Comment:{EOSINOPHILS {[id number]) Basophils % 0.6 % [facility] Comment:{BASOPHILS {[id number]) 10/28/2012 2:15 PM EDT 10/28/2012 11:59 PM EDT Narrative Resulting Agency Comment [id number] us Abel Fierro MD LAB SAME DAY RESULT Final Resul t [facility] [address] [place] [address] documented in this encounter Visit Diagnoses Diagnosis Rheumatoid arthritis(714.0) Rheumatoid arthritis documented in this encounter Care Teams Lay Midwife Relationship Specialty Start Date End Date Alberto Pacheco [address] [place] [address] PCP - General 07/19/08 05/24/13 Charly Saxena [facility] [address] [place] [address] PCP - General Internal Medicine 05/25/13 07/16/17 Cheryl Calderon MD [facility] Adult Medicine [address] [place] [address] PCP - General Internal Medicine 07/17/17 documented as of this encounter
--- OUTSIDE RECORDS SUMMARY | 2024-12-23 12:14 | XMS_ITS | Encounter Summary ---
Author Organization [facility] Address [address] [place] [address] Care Team Providers Care Track Car Operator Name Role Phone Charly Saxena Primary Care Provider [phone] Cheryl Calderon MD Primary Care Provider [phone] Encounter Details Date Type Department Care Team (Late st Contact Info) Description 07/06/2015 Orders Only [facility] Rheumatology [address] [place] [address] Abel Fierro MD [address] [place] [address] Social History Tobacco Use Types Packs/Day Years [...] - 0.99 mg/dL [facility] Comment: {CREATININE {[id number]) For patients >49 years of age, the reference limit for Creatinine is approximately 13% higher for people identified as -[place]. GFR 69 > OR = 60 mL/min/1. 73m2 [facility] Comment:{eGFR NON-AFR. AMERI CAN {[id number]) GFR () 81 > OR = 60 mL/min/1. 73m2 [facility] Comment:{eGFR AMERIC AN {[id number]) 07/06/2015 1:10 PM EST 07/07/2015 12:26 AM [...] needs for GFR calculation. Resulting Agency Comment [id number] us Abel Fierro MD LAB SAME DAY RESULT Final Resul t Performing Organization Address [facility] Co de Phone Number [facility] [address] [place] [address] * (ABNORMAL) ALANINE AMINOTRANSFERASE (ALT), SERUM (07/06/2015 1:10 PM EST) ALT (SGPT) 35(H) 6 - 29 U/L [facility] Comment:{ALT {[id number]) 07/06/2015 1:10 PM EST 07/07/2015 12:26 AM EST Narrative Resulting Agency Comment [id number] Abel Fierro MD LAB SAME DAY RESULT Final Resul t Performing Organization Address [facility] de Phone Number [facility] [address] [place] [address] * ASPARTATE AMINOTRANSFERASE (AST), SERUM (07/06/2015 1:10 PM EST) AST (SGOT) 24 10 - 35 U/L [facility] Comment:{AST {[id number]) 07/06/2015 1:10 PM EST 07/07/2015 12:26 AM EST Narrative Resulting Agency Comment [id number] Abel Fierro MD LAB SAME DAY RESULT Final Resul t Performing Organization Address [facility] de Phone Number [facility] [address] [place] [address] * (ABNORMAL) CBC INCLUDES DIFFERENTIAL AND PLATELET COUNT (07/06/2015 1:10 PM EST) WBC 9.5 3.8 - 10.8 Thousand/ uL [facility] Comment:{WHITE BLOOD CELL CO UNT {[id number]) RBC 5.89(H) 3.80 - 5.10 Million/u L [facility] Comment:{RED BLOOD CELL COUN T {[id number]) Hemoglobin 15.7(H) 11.7 - 15.5 g/dL [facility] Comment:{HEMOGLOBIN {[id number]) Hematocrit 48.6(H) 35.0 - 45.0 % [facility] Comment:{HEMATOCRIT {[id number]) MCV 82.5 80.0 - 100.0 fL [facility] Comment:{MCV {[id number]) MCH 26.7(L) 27.0 - 33.0 pg [facility] Comment:{MCH {[id number]) MCHC 32.3 32.0 - 36.0 g/dL [facility] Comment:{MCHC {[id number]) RDW 15.9(H) 11.0 - 15.0 % [facility] Comment:{RDW {[id number]) PLT 356 140 - 400 Thousand/ uL [facility] Comment:{PLATELET COUNT {[id number]) MPV 7.5 7.5 - 11.5 fL [facility] Comment:{MPV {[id number]) Neutrophils # 7999(H) 1500 - 7800 cells/uL [facility] Comment:{ABSOLUTE NEUTROPHIL S {[id number]) Lymphocytes # 979 850 - 3900 cells/uL [facility] Comment:{ABSOLUTE LYMPHOCYTE S {[id number]) Monocytes # 428 200 - 950 cells/uL [facility] Comment:{ABSOLUTE MONOCYTES {[id number]) Eosinophils # 48 15 - 500 cells/uL [facility] Comment:{ABSOLUTE EOSINOPHIL S {[id number]) Basophils # 48 0 - 200 cells/uL [facility] Comment:{ABSOLUTE BASOPHILS {[id number]) Neutrophils % 84.2 % [facility] Comment:{NEUTROPHILS {[id number]) Lymphocytes % 10.3 % [facility] Comment:{LYMPHOCYTES {[id number]) Monocytes % 4.5 % [facility] Comment:{MONOCYTES {[id number]) Eosinophils % 0.5 % [facility] Comment:{EOSINOPHILS {[id number]) Basophils % 0.5 % [facility] Comment:{BASOPHILS {[id number]) 07/06/2015 1:10 PM EST 07/07/2015 12:26 AM EST Narrative Resulting Agency Comment [id number] us Abel Fierro MD LAB SAME DAY RESULT Final Resul t [facility] [address] [place] [address] documented in this encounter Visit Diagnoses Diagnosis Rheumatoid arthritis involving both feet, unspecified rheumatoid factor presence (HCC) [M06.071, M06.072] documented in this encounter Care Teams Track Car Operator Relationship Specialty Start Date End Date Charly Saxena [facility] [address] [place] [address] PCP - General Internal Medicine 05/25/13 07/16/17 Cheryl Calderon MD [facility] Medicine [address] [place] [address] PCP - General Internal Medicine 07/17/17 documented as of this encounter
--- OUTSIDE RECORDS SUMMARY | 2024-12-23 12:14 | XMS_ITS | Encounter Summary ---
Author Organization [facility] Address [address] [place] [address] Care Team Providers Care Preschool Substitute Teacher Name Role Phone Charly Saxena Primary Care Provider [phone] Cheryl Calderon MD Primary Care Provider [phone] Encounter Details Date Type Department Care Team (Late st Contact Info) Description 05/25/2013 Orders Only [facility] Rheumatology [address] [place] [address] Abel Fierro MD [address] [place] [address] Social History Tobacco Use Types Packs/Day Years [...] - 1.05 mg/dL [facility] Comment: {CREATININE {[id number]) For patients >49 years of age, the reference limit for Creatinine is approximately 13% higher for people identified as -[place]ian. GFR 70 > OR = 60 mL/min/1. 73m2 [facility] Comment:{eGFR NON-AFR. AMERI CAN {[id number]) GFR () 82 > OR = 60 mL/min/1. 73m2 [facility] Comment:{eGFR AMERIC AN {[id number]) 05/25/2013 2:20 PM EST 05/25/2013 6:51 PM [...] needs for GFR calculation. Resulting Agency Comment [id number] us Abel Fierro MD LAB SAME DAY RESULT Final Resul t [facility] [address] [place] [address] * (ABNORMAL) CBC INCLUDES DIFFERENTIAL AND PLATELET COUNT (05/25/2013 2:20 PM EST) WBC 14.5(H) 3.8 - 10.8 Thousand/ uL [facility] Comment:{WHITE BLOOD CELL CO UNT {[id number]) RBC 5.63(H) 3.80 - 5.10 Million/u L [facility] Comment:{RED BLOOD CELL COUN T {[id number]) Hemoglobin 14.6 11.7 - 15.5 g/dL [facility] Comment:{HEMOGLOBIN {[id number]) Hematocrit 46.7(H) 35.0 - 45.0 % [facility] Comment:{HEMATOCRIT {[id number]) MCV 82.8 80.0 - 100.0 fL [facility] Comment:{MCV {[id number]) MCH 26.0(L) 27.0 - 33.0 pg [facility] Comment:{MCH {[id number]) MCHC 31.4(L) 32.0 - 36.0 g/dL [facility] Comment:{MCHC {[id number]) RDW 15.0 11.0 - 15.0 % [facility] Comment:{RDW {[id number]) PLT 395 140 - 400 Thousand/ uL [facility] Comment:{PLATELET COUNT {[id number]) MPV 7.4(L) 7.5 - 11.5 fL [facility] Comment:{MPV {[id number]) Neutrophils # 66208(H) 1500 - 7800 cells/uL [facility] Comment:{ABSOLUTE NEUTROPHIL S {[id number]) Lymphocytes # 1291 850 - 3900 cells/uL [facility] Comment:{ABSOLUTE LYMPHOCYTE S {[id number]) Monocytes # 595 200 - 950 cells/uL [facility] Comment:{ABSOLUTE MONOCYTES {[id number]) Eosinophils # 102 15 - 500 cells/uL [facility] Comment:{ABSOLUTE EOSINOPHIL S {[id number]) Basophils # 29 0 - 200 cells/uL [facility] Comment:{ABSOLUTE BASOPHILS {[id number]) Neutrophils % 86.1 % [facility] Comment:{NEUTROPHILS {[id number]) Lymphocytes % 8.9 % [facility] Comment:{LYMPHOCYTES {[id number]) Monocytes % 4.1 % [facility] Comment:{MONOCYTES {[id number]) Eosinophils % 0.7 % [facility] Comment:{EOSINOPHILS {[id number]) Basophils % 0.2 % [facility] Comment:{BASOPHILS {[id number]) 05/25/2013 2:20 PM EST 05/25/2013 6:51 PM EST Narrative Resulting Agency Comment [id number] us Abel Fierro MD LAB SAME DAY RESULT Final Resul t Performing Organization Address City/[facility] Co de Phone Number [facility] [address] [place] [address] * ALANINE AMINOTRANSFERASE (ALT), SERUM (05/25/2013 2:20 PM EST) ALT (SGPT) 21 6 - 29 U/L [facility] Comment:{ALT {[id number]) 05/25/2013 2:20 PM EST 05/25/2013 6:51 PM EST Narrative Resulting Agency Comment [id number] us Abel Fierro MD LAB SAME DAY RESULT Final Resul t Performing Organization Address [facility] de Phone Number [facility] [address] [place] [address] * ASPARTATE AMINOTRANSFERASE (AST), SERUM (05/25/2013 2:20 PM EST) AST (SGOT) 21 10 - 35 U/L [facility] Comment:{AST {[id number]) 05/25/2013 2:20 PM EST 05/25/2013 6:51 PM EST Narrative Resulting Agency Comment [id number] Abel Fierro MD LAB SAME DAY RESULT Final Resul t Performing Organization Address [facility] de Phone Number [facility] [address] [place] [address] documented in this encounter Visit Diagnoses Diagnosis Rheumatoid arthritis(714.0) Rheumatoid arthritis documented in this encounter Care Teams Preschool Substitute Teacher Relationship Specialty Start Date End Date Charly Saxena [facility] [address] [place] [address] PCP - General Internal Medicine 05/25/13 07/16/17 Cheryl Calderon MD [facility] Medicine [address] [place] [address] PCP - General Internal Medicine 07/17/17 documented as of this encounter
--- OUTSIDE RECORDS SUMMARY | 2024-12-23 12:14 | XMS_ITS | Encounter Summary ---
Author Organization [facility] Address [address] [place] [address] Care Team Providers Care Home Restoration Service Cleaner Name Role Phone Alberto Pacheco Primary Care Provider [phone] Unknown Pcp, Non Rmg Primary Care Provider Unava ilCharly Antoine Primary Care Provider [phone] Charly Saxena Primary Care Provider Cheryl Calderon MD Primary Care Provider [phone] Encounter Details Date Type Department Care Team (Late st Contact Info) Description 03/14/2006 Orders Only [facility] Rheumatology [address] [place] [address] Nikkie Moss, FOLDER MACHINE ADJUSTER [address] [place], [place] [id number] Social History Tobacco Use Types Packs/Day Years [...] filedocumented in this encounter Care Teams Home Restoration Service Cleaner Relationship Specialty Start Date End Date Alberto Pacheco [address] [place] [address] PCP - General 07/19/08 05/24/13 Unknown Pcp, Non Rmg PCP - General 06/30/08 07/18/08 Charly Saxena [facility] [address] [place] [address] PCP - General 01/18/06 06/29/08 Charly Saxena [facility] [address] [place] [address] PCP - General Internal Medicine 05/25/13 07/16/17 Cheryl Calderon MD [facility] Medicine [address] [place] [address] PCP - General Internal Medicine 07/17/17 documented as of this encounter
--- OUTSIDE RECORDS SUMMARY | 2024-12-23 12:14 | XMS_ITS | Encounter Summary ---
Author Organization [facility] Address [address] [place] [address] Phone Care Team Providers Care Senior Controls Analyst Name Role Phone Cash Fernandes MD Unavailable [phone] Keren Poon [facility] Primary Care Provid er Chavo Jack MD Unavailable Willi Wells MD Unavailable Unavailable Jose Thakur MD Unavailable Dana Rucker RN TRANSITIONAL Unavailable [phone] Jonathan Alvarez MD Unavailable [phone] Anival Borja MD Unavailable [phone] Lyndsay Reynoso RN TRANSITIONAL Unavailable Gutierrez Pittman MD Unavailable [phone] Encounter Details Date Type Department Care Team (Late st Contact Info) Description 04/10/2024 Procedure Pass [facility], Ct Scan - [address] [address] Social History Tobacco Use Types Packs/Day Years [...] 04/10/2024 12:37 AM Rachelle Chavez RN * [place] Suicide Severity Rating Scale (Screener/Recent Self-Report) Question [...] Description 12/25/2024 2:30 PM EDT Office Visit [facility] Infectious Diseases [address] [place] [address] Dana Rucker FNP [address] [address] 01/01/2025 1:00 PM EDT Office Visit [facility] Services [address] [place] [address] Dana Rucker FNP [address] [address] Nereyda Wong, PT [address] [place] [address] 01/07/2025 2:30 PM EDT Office Visit [facility] Pulmonary, Allergy and Critical Care Medicine [address] [facility] [place] [address] Jose Thakur MD [address] [place] [address] 01/19/2025 2:30 PM EDT Office Visit [facility] Services [address] [place] [address] DarnellDana maguire, [facility] [address] [address] Nereyda Wong, PT [address] [place] [address] 01/26/2025 2:30 PM EDT Office Visit [facility] Services [address] [place] [address] DarnellDana maguireley, [facility] [address] [address] Nereyda Wong, PT [address] [place] [address] 01/29/2025 3:00 PM EDT Office Visit [facility] [address] [place] [address] [place] [address] Keren Poon, RELATIONS LIAISON [address] [place] [address] 02/01/2025 3:00 PM EDT Office Visit [address] [place] [address] Keren Poon, ORI [address] [address] 03/02/2025 2:30 PM EST Office Visit [address] [address] Dana Rucker, [facility] [address] [address] Nereyda Wong, PT [address] [place] [address] 03/09/2025 2:30 PM EST Office Visit [address] [address] Chaim Dana Leslee, [address] [address] Nereyda Wong, PT [address] [place] [address] 03/16/2025 2:30 PM EST Office Visit [address] [address] Josefina Ruckerh Leslee, [address] [address] Nereyda Wong, PT [address] [place] [address] 06/03/2025 2:00 PM EST Office Visit [address] [place] [address] Keren Poon, ORI [address] [place] [address] [place] [address] [email or web address] documented as of this encounter Visit Diagnoses [...] as of this encounter Care Teams Senior Controls Analyst Relationship Specialty Start Date End Date Keren Poon CNP 170 [facility], [address] [place] [address] [email or web address] PCP - General Family Medicine 01/31/23 Cash Fernandes MD [address] [place] [address] [email or web address] Gastroenterology 08/23/20 Chavo Jack MD [address] [place] [address] Insurance Assigned Provider 08/03/23 05/04/24 Willi Wells MD [address] [place] [address] Rheumatology 02/04/24 Jose Thakur MD [address] [place] [address] Milk Receiver Pulmonary Disease 03/17/24 Dana Rucker FNP 15 [facility], 2nd [place] [address] [email or web address] Nurse Practitioner Infectious Diseases 05/21/24 Jonathan Alvarez MD [address] [place] [address], [address] [place] [address] Urology 05/14/23 Anival Borja MD [address] [place] [address], [address] [place] [address] Neurologist Neurology 01/04/23 Lyndsay Reynoso FNP [address] [place] [address] Nurse Practitioner Pain Medicine 05/27/22 Gutierrez Pittman MD [address] [place] [phone] Sales Attendant Cardiology 05/27/24 documented as of this encounter Additional Source Comments The information contained in this document represents components of the legal health record. It is not the complete legal health record.[facility]
--- OUTSIDE RECORDS SUMMARY | 2024-12-23 12:14 | XMS_ITS | Encounter Summary ---
Author Organization [facility] Address [address] [place] [address] Phone Care Team Providers Care Chief Medical Director Name Role Phone Patrick Sanchez MD Unavailable [phone] Charly Saxena DO Primary Care Provider [phone] Cheryl Calderon MD Primary Care Provider Keren Mabry MD Unavailable Louisa Hogan MD Unavailable Charly Saxena DO Unavailable Abhinav Muhammad MD Unavailable [phone] Cheryl Giraldo NP Unavailable Wilfrido Steel MD Unavailable [phone] Sharon Martin PA-C Unavailable Ita Pineda CNP Primary Care Provider Cash Fernandes MD Unavailable [phone] Seven Menchaca MD Unavailable Chavo Jack MD Primary Care Provider [phone] Jerseyjayjay Keren Jailyn [facility] Primary Care Provid er Chavo Jack MD Unavailable Willi Wells MD Unavailable Unavailable Jose Thakur MD Unavailable Dana Rucker WELT WHEELER Unavailable Jonathan Alvarez MD Unavailable [phone] Anival Borja MD Unavailable Angeles Lyndsay K WELT WHEELER Unavailable [phone] Gutierrez Pittman MD Unavailable Encounter Details Date Type Department Care Team (Late st Contact Info) Description 12/27/2017 Ancillary Orders [facility] Orthoped[facility] at [place] [address] [place] [address] Patrick Sanchez MD [address] [place] [address] Department [place] [address] [email or web address] Social History Tobacco [...] Description 12/25/2024 2:30 PM EDT Office Visit [facility] Infectious Diseases [address] [place] [address] Dana Rucker WELT WHEELER [facility] 2nd [place] [address] [email or web address] 01/01/2025 1:00 PM EDT Office Visit [address] [address] Dana Rucker, [facility] [address] [address] [email or web address] Nereyda Wong, PT 380 [place] [address] 01/07/2025 2:30 PM EDT Office Visit [facility] Pulmonary, Allergy and Critical Care Medicine [address] [place] [address] Jose Thakur MD 30 [place] [address] 01/19/2025 2:30 PM EDT Office Visit [address] [address] Dana Rucker, [facility] [address] [address] [email or web address] Nereyda Wong, PT 380 [place] [address] 01/26/2025 2:30 PM EDT Office Visit [address] [address] Dana Rucker, [facility] [address] [address] Nereyda Wong, PT 380 [place] [address] 01/29/2025 3:00 PM EDT Office Visit [facility] [address] [place] [address] Keren Poon, BEAD PREPARER [address] [address] [email or web address] 02/01/2025 3:00 PM EDT Office Visit [address] [place] [address] Keren Poon, [facility] [address] [address] 03/02/2025 2:30 PM EST Office Visit [address] [address] Dana Rucker, [address] [address] Nereyda Wong, PT [address] [place] [address] 03/09/2025 2:30 PM EST Office Visit [address] [address] Dana Rucker, [address] [address] Nereyda Wong, PT [address] [place] [address] 03/16/2025 2:30 PM EST Office Visit [address] [address] Dana Rucker, [address] [address] Nereyda Wong, PT [address] [place] [address] 06/03/2025 2:00 PM EST Office Visit [facility] [address] [place] [address] [place] [address] Keren Poon, ORI 170 [facility], 2nd Floor [place] [address] [email or web address] documented as of [...] documented as of this encounter Care Teams Chief Medical Director Relationship Specialty Start Date End Date Charly Saxena PranavDO [address] [address] PCP - General Internal Medicine 10/05/14 04/22/18 Cheryl Calderon MD [address] [place] [address] PCP - General Family Medicine 04/23/18 08/18/20 Ita Pineda CNP 40 [place] [address] [email or web address] PCP - General Internal Medicine 08/19/20 09/17/22 Chavo Jack MD 40 [place] [address] [email or web address] PCP - General Internal Medicine 09/18/22 01/30/23 Keren Poon CNP [address] [place] [address], 2nd [place] [address] [email or web address] PCP - General Family Medicine 01/31/23 Patrick Sanchez MD [address] [place] [address] Department [place] [address] [email or web address] Historical LMR Provider 09/10/14 Keren Mabry MD [address] [place] [address] Historical LMR Provider 07/10/18 Louisa Hogan MD [address] [place] [address] [email or web address] Historical LMR Provider 07/10/1807/29 [place] [address] [place] [address] Historical LMR Provider 07/10/18 08/22/20 Abhinav Muhammad MD 115 [facility] 104 [place] [address] [email or web address] Historical LMR Provider 07/10/18 08/22/20 Cheryl Giraldo NP 94 [place] [address] [email or web address] Historical LMR Provider 07/10/18 08/22/20 Wilfrido Steel MD 12 [facility]. [address] [place] [address] Historical LMR Provider 07/10/18 08/22/20 Sharon Martin PA-C 115 [facility] 104 [place] [address] Historical LMR Provider 07/10/18 08/22/20 Cash Fernandes MD [address] [address] Gastroenterology 08/23/20 Seven Menchaca MD 40 [place] [address] Insurance Assigned Provider 08/04/22 08/03/23 Chavo Jack MD 40 [place] [address] Insurance Assigned Provider 08/03/23 05/04/24 Willi Wells MD [address] [place] [address] Rheumatology 02/04/24 Jose Thakur MD [address] [place] [address] [email or web address] Oyster Shucker Pulmonary Disease 03/17/24 Dana Rucker FNP [address] [place] [address], [address] [place] [address] [email or web address] Nurse Practitioner Infectious Diseases 05/21/24 Jonathan Alvarez MD [address] [place] [address], [address] [place] [address] [email or web address] Urology 05/14/23 Anival Borja MD [address] [place] [address], [address] [place] [address] [email or web address] Neurologist Neurology 01/04/23 Lyndsay Reynoso FNP [address] [place] [address] Nurse Practitioner Pain Medicine 05/27/22 Gutierrez Pittman MD 40 [place] [address] Marketing Agent Cardiology 05/27/24 documented as of this encounter Additional Source Comments The information contained in this document represents components of the legal health record. It is not the complete legal health record.[facility]
--- OUTSIDE RECORDS SUMMARY | 2024-12-23 12:14 | XMS_ITS | Encounter Summary ---
Author Organization [facility] Address 5 [place] [address] Care Team Providers Care Director Of Healthcare Systems Name Role Phone Charly Saxena Primary Care Provider [phone] Cheryl Calderon MD Primary Care Provider [phone] Encounter Details Date Type Department Care Team (Late st Contact Info) Description 05/25/2013 Orders Only [facility] Rheumatology [address] [place] [address] Abel Fierro MD 5 [place] [address] Social History Tobacco Use Types Packs/Day Years [...] <0.80 mg/dL [facility] Comment: {C-REACTIVE PROTEIN {[id number]) Please be advised that patients taking Carboxypenicillins may exhibit falsely decreased C-Reactive Protein levels due to an analytical interference in this assay. 05/25/2013 3:30 PM EST 05/25/2013 6:52 PM EST Narrative Resulting Agency Comment [id number] us Abel Fierro MD LABORATORY Final Result Performing Organization Address [facility] de Phone Number [facility] [address] [place] [address] * (ABNORMAL) ERYTHROCYTE SEDIMENTATION RATE (ESR), SHAJIREN (05/25/2013 3:30 PM EST) Sedimentation Rate West[place]ren (ESR) 32(H) < OR = 30 mm/h [facility] Comment:{SED RATE BY MODIFIE D KUNAL {[id number]) 05/25/2013 3:30 PM EST 05/25/2013 6:52 PM EST Narrative Resulting Agency Comment [id number] us Abel Fierro MD LAB SAME DAY RESULT Final Resul t Performing Organization Address [facility] de Phone Number [facility] [address] [place] [address] documented in this encounter Visit Diagnoses Diagnosis Rheumatoid arthritis(714.0) Rheumatoid arthritis documented in this encounter Care Teams Director Of Healthcare Systems Relationship Specialty Start Date End Date Charly Saxena [facility]0 [place], [place] [address] PCP - General Internal Medicine 05/25/13 07/16/17 Cheryl Calderon MD [facility] Adult Medicine [address] [place] [address] [place] [address] PCP - General Internal Medicine 07/17/17 documented as of this encounter
--- OUTSIDE RECORDS SUMMARY | 2024-12-23 12:14 | XMS_ITS | Encounter Summary ---
Author Organization [facility] Address [address] [place] [address] Care Team Providers Care Crna Name Role Phone Charly Saxena Primary Care Provider [phone] Cheryl Calderon MD Primary Care Provider [phone] Encounter Details Date Type Department Care Team (Late st Contact Info) Description 01/18/2016 Orders Only [facility] Rheumatology [address] [place] [address] Abel Fierro MD 5 [place] [address] Social History Tobacco Use Types Packs/Day Years [...] - 0.99 mg/dL [facility] Comment: {CREATININE {[id number]) For patients >49 years of age, the reference limit for Creatinine is approximately 13% higher for people identified as -[place]an. GFR 81 > OR = 60 mL/min/1. 73m2 [facility] Comment:{eGFR NON-AFR. AMERI CAN {[id number]) GFR () 94 > OR = 60 mL/min/1. 73m2 [facility] Comment:{eGFR AMERIC AN {[id number]) 01/18/2016 1:17 PM EDT 01/18/2016 9:39 PM [...] needs for GFR calculation. Resulting Agency Comment [id number] us Abel Fierro MD LAB SAME DAY RESULT Final Resul t [facility] [address] [place] [address] * (ABNORMAL) ALANINE AMINOTRANSFERASE (ALT), SERUM (01/18/2016 1:17 PM EDT) ALT (SGPT) 48(H) 6 - 29 U/L [facility] Comment:{ALT {[id number]) 01/18/2016 1:17 PM EDT 01/18/2016 9:39 PM EDT Narrative Resulting Agency Comment [id number] us Abel Fierro MD LAB SAME DAY RESULT Final Resul t Performing Organization Address City/[facility] Co de Phone Number [facility] [address] [place] [address] * ASPARTATE AMINOTRANSFERASE (AST), SERUM (01/18/2016 1:17 PM EDT) AST (SGOT) 27 10 - 35 U/L [facility] Comment:{AST {[id number]) 01/18/2016 1:17 PM EDT 01/18/2016 9:39 PM EDT Narrative Resulting Agency Comment [id number] us Abel Fierro MD LAB SAME DAY RESULT Final Resul t Performing Organization Address [facility] Co de Phone Number [facility] [address] [place] [address] * (ABNORMAL) CBC INCLUDES DIFFERENTIAL AND PLATELET COUNT (01/18/2016 1:17 PM EDT) WBC 11.4(H) 3.8 - 10.8 Thousand/ uL [facility] Comment:{WHITE BLOOD CELL CO UNT {[id number]) RBC 5.40(H) 3.80 - 5.10 Million/u L [facility] Comment:{RED BLOOD CELL COUN T {[id number]) Hemoglobin 14.3 11.7 - 15.5 g/dL [facility] Comment:{HEMOGLOBIN {[id number]) Hematocrit 45.8(H) 35.0 - 45.0 % [facility] Comment:{HEMATOCRIT {[id number]) MCV 84.8 80.0 - 100.0 fL [facility] Comment:{MCV {[id number]) MCH 26.5(L) 27.0 - 33.0 pg [facility] Comment:{MCH {[id number]) MCHC 31.3(L) 32.0 - 36.0 g/dL [facility] Comment:{MCHC {[id number]) RDW 16.5(H) 11.0 - 15.0 % [facility] Comment:{RDW {[id number]) PLT 289 140 - 400 Thousand/ uL [facility] Comment:{PLATELET COUNT {[id number]) MPV 8.4 7.5 - 11.5 fL [facility] Comment:{MPV {[id number]) Neutrophils # 9793(H) 1500 - 7800 cells/uL [facility] Comment:{ABSOLUTE NEUTROPHIL S {[id number]) Lymphocytes # 809(L) 850 - 3900 cells/uL [facility] Comment:{ABSOLUTE LYMPHOCYTE S {[id number]) Monocytes # 638 200 - 950 cells/uL [facility] Comment:{ABSOLUTE MONOCYTES {[id number]) Eosinophils # 91 15 - 500 cells/uL [facility] Comment:{ABSOLUTE EOSINOPHIL S {[id number]) Basophils # 68 0 - 200 cells/uL [facility] Comment:{ABSOLUTE BASOPHILS {[id number]) Neutrophils % 85.9 % [facility] Comment:{NEUTROPHILS {[id number]) Lymphocytes % 7.1 % [facility] Comment:{LYMPHOCYTES {[id number]) Monocytes % 5.6 % [facility] Comment:{MONOCYTES {[id number]) Eosinophils % 0.8 % [facility] Comment:{EOSINOPHILS {[id number]) Basophils % 0.6 % [facility] Comment:{BASOPHILS {[id number]) 01/18/2016 1:17 PM EDT 01/18/2016 9:39 PM EDT Narrative Resulting Agency Comment [id number] us Abel Fierro MD LAB SAME DAY RESULT Final Resul t [facility] [address] [place] [address] documented in this encounter Visit Diagnoses Diagnosis Rheumatoid arthritis involving multiple sites with positive rheumatoid factor (HCC) [M05.79] documented in this encounter Care Teams Crna Relationship Specialty Start Date End Date Charly Saxena [facility] [address] [place] [address] PCP - General Internal Medicine 05/25/13 07/16/17 Cheryl Calderon MD [facility] [address] [place] [address] PCP - General Internal Medicine 07/17/17 documented as of this encounter
--- OUTSIDE RECORDS SUMMARY | 2024-12-23 12:14 | XMS_ITS | Encounter Summary ---
Author Organization [facility] Address 5 [place] [address] Care Team Providers Care Territory Account Manager Name Role Phone Charly Saxena Primary Care Provider Cheryl Calderon MD Primary Care Provider [phone] Encounter Details Date Type Department Care Team (Late st Contact Info) Description 10/15/2013 Orders Only [facility] Rheumatology [address] [place] [address] Abel Fierro MD 5 [place] [address] Social History Tobacco Use Types Packs/Day Years [...] arthritis documented in this encounter Care Teams Territory Account Manager Relationship Specialty Start Date End Date Charly Saxena [facility] [address] [place] [address] PCP - General Internal Medicine 05/25/13 07/16/17 Cheryl Calderon MD [facility] Adult Medicine [address] [place] [address] PCP - General Internal Medicine 07/17/17 documented as of this encounter
--- OUTSIDE RECORDS SUMMARY | 2024-12-23 12:14 | XMS_ITS | Encounter Summary ---
Author Organization [facility] Address [address] [place] [address] Care Team Providers Care Ob/Gyn Nurse Name Role Phone Charly Saxena Primary Care Provider Cheryl Calderon MD Primary Care Provider [phone] Encounter Details Date Type Department Care Team (Late st Contact Info) Description 05/25/2013 Orders Only [facility] Rheumatology [address] [place] [address] Abel Fierro MD 5 [place] [address] Social History Tobacco Use Types Packs/Day Years [...] of this encounter Results * Due to [place] state law, this organization might not be sharing negative HIV tests. * C-REACTIVE PROTEIN (CRP) - INFLAMMATION (05/25/2013 3:30 PM EST) C reactive protein 0.52 <0.80 mg/dL [facility] Comment: {C-REACTIVE PROTEIN {[id number]) Please be advised that patients taking Carboxypenicillins may exhibit falsely decreased C-Reactive Protein levels due to an analytical interference in this assay. 05/25/2013 3:30 PM EST 05/25/2013 6:52 PM EST Narrative Resulting Agency Comment [id number] us Abel Fierro MD LABORATORY Final Result Performing Organization Address City/[facility] Co de Phone Number [facility] [address] [place] [address] * (ABNORMAL) ERYTHROCYTE SEDIMENTATION RATE (ESR), KUNAL (05/25/2013 3:30 PM EST) Sedimentation Rate West[place]ren (ESR) 32(H) < OR = 30 mm/h [facility] Comment:{SED RATE BY JONATHAN SYED {[id number]) 05/25/2013 3:30 PM EST 05/25/2013 6:52 PM EST Narrative Resulting Agency Comment [id number] us Abel Fierro MD LAB SAME DAY RESULT Final Resul t Performing Organization Address [facility] Co de Phone Number [facility] [address] [place] [address] documented in this encounter Visit Diagnoses Diagnosis Rheumatoid arthritis(714.0)- Primary Rheumatoid arthritis documented in this encounter Care Teams Ob/Gyn Nurse Relationship Specialty Start Date End Date Charly Saxena [facility] [address] [place] [address] PCP - General Internal Medicine 05/25/13 07/16/17 Cheryl Calderon MD [facility] Medicine [address] [place] [address] PCP - General Internal Medicine 07/17/17 documented as of this encounter
--- OUTSIDE RECORDS SUMMARY | 2024-12-23 12:14 | XMS_ITS | Encounter Summary ---
Author Organization [facility] Address [address] [place] [address] Phone Care Team Providers Care Business Insurance Agent Name Role Phone Cash Fernandes MD Unavailable [phone] Keren Poon [facility] Primary Care Provid er Chavo Jack MD Unavailable Willi Wells MD Unavailable Unavailable Jose Thakur MD Unavailable Dana Rucker FINISH REPAIR WORKER Unavailable [phone] Jonathan Alvarez MD Unavailable [phone] Anival Borja MD Unavailable Lyndsay Reynoso FINISH REPAIR WORKER Unavailable Gutierrez Pittman MD Unavailable [phone] Encounter Details Date Type Department Care Team (Late st Contact Info) Description 04/10/2024 Procedure Pass [facility], Ct Scan - [address] [address] Social History Tobacco Use Types Packs/Day Years [...] 04/10/2024 12:37 AM Rachelle Chavez RN * [place] Suicide Severity Rating Scale (Screener/Recent Self-Report) Question [...] Description 12/25/2024 2:30 PM EDT Office Visit [facility] Infectious Diseases [address] [place] [address] Dana uRcker FNP [address] [address] 01/01/2025 1:00 PM EDT Office Visit [facility] [address] [place] [address] Dana Rucker FNP [address] [address] Nereyda Wong, PT [address] [place] [address] 01/07/2025 2:30 PM EDT Office Visit [facility] Pulmonary, Allergy and Critical Care Medicine [address] [facility] [place] [address] Jose Thakur MD 30 [place] [address] 01/19/2025 2:30 PM EDT Office Visit [facility] [address] [place] [address] DarnellDana maguire, [place] [facility] [address] [address] Nereyda Wong, PT [address] [place] [address] 01/26/2025 2:30 PM EDT Office Visit [facility] [address] [place] [address] DarnellDana maguireley, [place] [facility] [address] [address] Nereyda Wong, PT [address] [place] [address] 01/29/2025 3:00 PM EDT Office Visit [facility] [address] [place] [address] [place] [address] Keren Poon, CDL DEDICATED TRUCK DRIVER [address] [place] [address] 02/01/2025 3:00 PM EDT Office Visit [address] [place] [address] Keren Poon, ORI [address] [address] 03/02/2025 2:30 PM EST Office Visit [address] [address] Dana Rucker, [facility] [address] [address] Nereyda Wong, PT [address] [place] [address] 03/09/2025 2:30 PM EST Office Visit [address] [address] Chaim Dana Leslee, [address] [address] Nereyda Wong, PT [address] [place] [address] 03/16/2025 2:30 PM EST Office Visit [address] [address] Josefina Ruckerh Leslee, [address] [address] Nereyda Wong, PT [address] [place] [address] 06/03/2025 2:00 PM EST Office Visit [address] [place] [address] Keren Poon, ORI [address] [place] [address] [place] [address] [email or web address] documented as of this encounter Visit Diagnoses [...] as of this encounter Care Teams Business Insurance Agent Relationship Specialty Start Date End Date Keren Poon CNP 170 [facility], [address] [place] [address] [email or web address] PCP - General Family Medicine 01/31/23 Cash Fernandes MD [address] [place] [address] [email or web address] Gastroenterology 08/23/20 Chavo Jack MD [address] [place] [address] Insurance Assigned Provider 08/03/23 05/04/24 Willi Wells MD [address] [place] [address] Rheumatology 02/04/24 Jose Thakur MD 30 [place] [address] Job Lithographer Pulmonary Disease 03/17/24 Dana Rucker FNP 15 [facility], 2nd [place] [address] [email or web address] Nurse Practitioner Infectious Diseases 05/21/24 Jonathan Alvarez MD [address] [place] [address], [address] [place] [address] Urology 05/14/23 Anival Borja MD [address] [place] [address], [address] [place] [address] Neurologist Neurology 01/04/23 Lyndsay Reynoso FNP [address] [place] [address] Nurse Practitioner Pain Medicine 05/27/22 Gutierrez Pittman MD [address] [place] [phone] Contact Center Analyst Cardiology 05/27/24 documented as of this encounter Additional Source Comments The information contained in this document represents components of the legal health record. It is not the complete legal health record.[facility]
--- OUTSIDE RECORDS SUMMARY | 2024-12-23 12:14 | XMS_ITS | Encounter Summary ---
Author Organization [facility] Address [address] [place] [address] Care Team Providers Care Drupal Developer Name Role Phone Charly Saxena Primary Care Provider [phone] Cheryl Calderon MD Primary Care Provider [phone] Encounter Details Date Type Department Care Team (Late st Contact Info) Description 06/13/2015 Orders Only [facility] Rheumatology [address] [place] [address] Abel Fierro MD 5 [place] [address] Social History Tobacco Use Types Packs/Day Years [...] of this encounter Results * Due to [place] [...] presence documented in this encounter Care Teams Drupal Developer Relationship Specialty Start Date End Date Charly Saxena [facility]0 [place] [address] PCP - General Internal Medicine 05/25/13 07/16/17 Cheryl Calderon MD [facility] Adult Medicine [address] [place] [address] PCP - General Internal Medicine 07/17/17 documented as of this encounter
--- OUTSIDE RECORDS SUMMARY | 2024-12-23 12:14 | XMS_ITS | Clinical Summary ---
Author Organization [facility] Address [address] [place] [address] Phone Care Team Providers Care Crate Liner Name Role Phone Cash Fernandes MD Unavailable [phone] Keren Poon [facility] Primary Care Provid er Willi Wells MD Unavailable Unavailable Jose Thakur MD Unavailable Dana Rucker EDUCATION AND TRAINING MANAGER Unavailable Jonathan Alvarez MD Unavailable [phone] Anival Borja MD Unavailable Lyndsay Reynoso EDUCATION AND TRAINING MANAGER Unavailable [phone] Gutierrez Pittman MD Unavailable [phone] Allergies Active Allergy Reactions Criticality Noted Date Comments Codeine Itching,Swelling,Oth er (See Comments) 08/26/2008 Xirefey-Afcaudnrwe-Mfp-Caff 08/21/19 21 Gold Salts Hives 08/26/2008 Nitrofurantoin [...] daily. Active azelastine-flutic asone (DYMISTA) 137-50 mcg/spray [place] 1 spray by Each Nare route 2 [...] due to hemorrhoids exacerbated by diarrhea. - Xfxu-fec-bcoslrd hemorrhoid treatments such as topical steroids for [...] of future UTIs. A referral to a operation supervisor will be made. Dyspnea on exertion 01/02/2024 Assessment & Plan (07/13/2024 10:28 AM EDT): -History of untreated CONOR, her medical/surgery registered nurse also notes history of cardiac issues and likely HFpEF with moderate mitral regurgitation. Patient has regular echocardiograms manages blood pressure and continues to take low-dose furosemide held iso setting of volume depletion. -no acute respiratory symptoms Assessment & Plan (07/12/2024 9:11 AM EDT): -History of untreated CONOR, her medical/surgery registered nurse also notes history of cardiac issues and likely HFpEF with moderate mitral regurgitation. Patient has regular echocardiograms manages blood pressure and continues to take low-dose furosemide which I will hold in the setting of volume depletion. -no acute respiratory symptoms Assessment & Plan (07/11/2024 8:43 AM EDT): -History of untreated CONOR, her medical/surgery registered nurse also notes history of cardiac issues and likely HFpEF with moderate mitral regurgitation. Patient has regular echocardiograms manages blood pressure and continues to take low-dose furosemide which I will hold in the setting of volume depletion. -no acute respiratory symptoms Assessment & Plan (07/10/2024 5:03 PM EDT): History of untreated CONOR, her medical/surgery registered nurse also notes history of cardiac issues and [...] her oxygen levels. A referral to a medical/surgery registered nurse will be made today. If there is no improvement, a follow-up with the medical/surgery registered nurse is recommended. Allergic rhinitis 11/21/2023 Assessment & [...] neurology (Dr Borja) and also pain management ([facility] Assessment & Plan (09/09/2023 8:42 AM EDT): Left sided face and head pain w/ dx: occipital neuralgia. Recently had nerve ablation performed on the left side, no improvement noted from this procedure yet. Followed by neurology (Dr Borja) and also pain management ([facility]). Assessment & Plan (06/07/2023 12:36 PM EST): Left sided face and head pain w/ dx: occipital neuralgia over the last 9 months. Followed by neurology (Dr Borja) and also pain management ([facility]). Awaiting insurance approval for nerve ablation per her report. Assessment & Plan (05/23/2023 2:20 PM EST): Left sided face and head pain w/ dx: occipital neuralgia over the last 8-9 months. Followed by neurology (Dr Borja) and also pain management ([facility]). Cervical radiculopathy 05/25/2022 Assessment & Plan (06/06/2024 [...] ON 09/28/2020 7:31 AM BY ESDRAS RODRIGUEZ, STORM CHASER multiple Obstructive sleep apnea, adult 08/20/2020 Overview [...] & Plan (04/15/2024 8:14 PM EST): Sees medical/surgery registered nurse for shortness of breath with exertion uses oxygen as needed has sleep apnea but untreated-in the past had difficulty with CPAP machine Assessment & Plan (04/14/2024 2:18 PM EST): Sees medical/surgery registered nurse for shortness of breath with exertion uses oxygen as needed has sleep apnea but untreated-in the past had difficulty with CPAP machine Assessment & Plan (04/13/2024 11:58 AM EST): Sees medical/surgery registered nurse for shortness of breath with exertion uses [...] AC. HRR on exam today. Followed by [facility] cardiology (Dr Pittman). Assessment & Plan [...] scheduled for a follow-up appointment with her insurance agency owner, Dr. Puckett, on 09/11/2023. 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 -no indication for stress dose steroids. 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 Franklin, in 09/2023. Assessment & Plan [...] (05/25/2022 9:19 PM EST): Establishing with new fire engineer. Discussed planning to reduce frequency and dose [...] She is unable to enroll in the [facility] fecal transplant program due to use of methotrexate and rituximab. We will pursue prescribing VOWST for fecal transplant. Discussed benefits vs risk with pt and Faustino. Filled out the [facility] enrollment paperwork and faxed along with hospital [...] follow-up with the pain management team at [facility]. 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 Urine toxicology screen May [...] Description 12/22/2024 2:30 PM EDT Office Visit [address] [address] Dana Rucker FNP [place], Stacy, PT PFD (pelvic floor dysfunction) (Primary Dx) 12/17/2024 Plan of Care Documentation [facility] [address] [place] [address] 12/16/2024 3:15 PM EDT Office Visit [address] [address] Dana Rucker FNP [place], Stacy, PT PFD (pelvic floor dysfunction) (Primary Dx) 12/11/2024 1:41 PM EDT - 12/11/2024 11:59 PM EDT Hospital Encounter [address] [address] Keren Poon CNP Discharge Disposition: Home or Self Care 12/09/2024 Refill [facility] [address] [place] [address] Dimitry Mccarthy MD Medication Refill 10/16/2024 9:29 AM EDT - 10/16/2024 11:59 PM EDT Hospital Encounter [facility] [address] [address] Argelia Taylor NP Discharge Disposition: Home or Self Care 09/30/2024 Transcribe Orders Virtual Department [address] [place] [address] Argelia Taylor NP Globus sensation (Primary Dx) 06/06/2024 Procedure Pass [address] [address] from Last 3 Months Immunizations Immunization Administration Dates Next Due COVID-19 (Pre-02/18) Pfizer Vaccine, mRNA, mohan-sucrose, PF 09/11/2021 [id number] FORMULATION 05/13/2009 INFLUENZA, SPLIT VIRUS, TRIVALENT PF [...] Description 12/25/2024 2:30 PM EDT Office Visit [facility] Infectious Diseases [address] [place] [address] Dana Rucker, EDUCATION AND TRAINING MANAGER [address] [address] [email or web address] 01/01/2025 1:00 PM EDT Office Visit [address] [address] Dana Rucker, EDUCATION AND TRAINING MANAGER [address] [address] [email or web address] Nereyda Wong, PT [address] [place] [address] [email or web address] 01/07/2025 2:30 PM EDT Office Visit [facility] Pulmonary, Allergy and Critical Care Medicine [address] [place] [address] Jose Thakur MD [address] [place] [address] 01/19/2025 2:30 PM EDT Office Visit [address] [address] Dana Rucker, EDUCATION AND TRAINING MANAGER [address] [address] [email or web address] Nereyda Wong, PT [address] [place] [address] 01/26/2025 2:30 PM EDT Office Visit [address] [address] Dana Rucker EDUCATION AND TRAINING MANAGER [address] [address] Nereyda Wong, PT [address] [place] [address] 01/29/2025 3:00 PM EDT Office Visit [address] [place], [place] [address] Keren Poon, STORM CHASER [address] [place] [address] 02/01/2025 3:00 PM EDT Office Visit [address] [place] [address] Keren Poon, STORM CHASER [address] [place] [address] 03/02/2025 2:30 PM EST Office Visit [address] [address] Dana Rucker, [address] [address] Nereyda Wong, PT [address] [place] [address] 03/09/2025 2:30 PM EST Office Visit [address] [address] Dana Rucker, [facility] [address] [address] Nereyda Wong, PT [address] [place] [address] 03/16/2025 2:30 PM EST Office Visit [address] [place] [place] [address] DarnellJosefinah Leslee, EDUCATION AND TRAINING MANAGER [address], 2nd [place] [address] [email or web address] Marvin Nereyda, PT [address] [place] [address] [email or web address] 06/03/2025 2:00 PM EST Office Visit [facility] [address] [place] [address] [place] [address] Keren Poon, STORM CHASER [address] [facility], 2nd [place] [address] [email or web address] Health Maintenance Due Date Last Done Comments [...] this topic Medical Devices Implanted Type Area Screen Cleaner Device Identifier Shelf Expiration Date Model / Serial / Lot Screw Bone 2.4x28mm Compression Long Thread Headless - [id number] Implanted:Qty: 2 on 12/20/2017 by Patrick Sanchez MD at [facility] NODATA Right: Hand SYNTHES 02.226.3 28 / / Stem Finger Size 20 Metacarpophalangeal Distal Silicone Preflexed - [id number] Implanted:Qty: 1 on 12/20/2017 by Patrick Sanchez MD at [facility] STANDARD Right: Hand [employer] [place] MJ 02/27/2020 [id number] / / [id number] Stem Finger Size 20 Metacarpophalangeal Distal Silicone Preflexed - [id number] Implanted:Qty: 1 on 12/20/2017 by Patrick Sanchez MD at [facility] STANDARD Right: Hand [employer] MJ 08/27/2019 [id number] / / [id number] Stem Finger Joint Metacarpophalangeal Size 10 Silicone Preflexed- Duplicate - Use Ps # [id number] - [id number] Implanted:Qty: 1 on 12/20/2017 by Patrick Sanchez MD at [facility] STANDARD Right: Hand [employer] MJ 02/27/2020 [id number] / / [id number] Implant Finger Size 5 Pre Flexed Cementless Mcp Pyrocarbon Silicone - [id number] Implanted:Qty: 1 on 12/20/2017 by Patrick Sanchez MD at [facility] STANDARD Right: Hand [employer] MJ 02/27/2020 [id number] / / [id number] Right Ankle,Hand,Elbow Left Hand Procedures Procedure Name [...] of the results and recommendations. Keren Poon STORM CHASER IMG MG EXAMS Elana l Result * [...] originally createdby Ross [email or web address]. us Argelia Taylor TERMITE RENEWAL INSPECTOR IMG FL MISC Final Res ult * TSH (07/12/2024 5:44 AM EDT) TSH 2.09 0.27 - 4.20 uIU/mL [facility] 07/12/2024 5:44 AM EDT 07/12/2024 6:05 AM EDT us Yoly Grimes DO, MPH LAB BLOOD ORDERABLES Final Result Performing Organization Address City/State/[facility] Co de Phone Number [address] [address] * (ABNORMAL) Basic metabolic panel (07/12/2024 5:44 AM EDT) SODIUM 145 133 - 146 mmol/L [facility] CHLORIDE 116(H) 96 - 108 mmol/L [facility] POTASSIUM 4.0 3.3 - 5.1 mmol/L [facility] CO2 17(L) 21 - 35 mmol/L [facility] BUN 8 6 - 19 mg/dL [facility] CREATININE 0.50 0.5 - 1.5 mg/dL [facility] GLUCOSE 83 70 - 99 mg/dL [facility] CALCIUM 8.3(L) 8.4 - 10.3 mg/dL [facility] EGFR 101 >59 mL/min/1.7 3m2 [facility] Comment:Estimated glomerular filtration rate calculated using the CKD-EPI refit equation. ANION GAP 16 10 - 20 mmol/L [facility] 07/12/2024 5:44 AM EDT 07/12/2024 6:05 AM EDT us Yoly K Steve DO, MPH LAB BLOOD ORDERABLES Final Result Performing Organization Address City/[facility]/ZIP Co de Phone Number [address] [address] * (ABNORMAL) Lipid panel (01/02/2024 2:12 PM EDT) HDL 63 mg/dL [facility] Comment: Interpretation <40 mg/dL: Low HDL cholesterol (major risk factor for CHD) Greater than or equal to 60 mg/dL: High HDL cholesterol ( negative risk factor for CHD) HDL - cholesterol is affected by a number of factors, e.g. smoking, excerise, hormones, sex and age. CHOLESTEROL 169 0 - 240 mg/dL [facility] TRIGLYCERIDES 102 30 - 160 mg/dL [facility] LDL 86 50 - 129 mg/dL [facility] Comment: LDL levels in terms of risk for coronary heart disease: <100 mg/dL: Optimal 100-129 mg/dL: Near or above optimal 130-159 mg/dL: Borderline high 160-189 mg/dL: High >190 mg/dL: Very High CARDIAC RISK RATIO 2.7(L) 3.3 - 4.4 [facility] Blood 01/02/2024 2:12 PM EDT 01/02/2024 2:18 PM EDT us Kerenelsie Poon CNP LAB BLOOD ORDERABLES Final Result Performing Organization Address [facility] Co de Phone Number [address] [address] * Hepatitis C antibody, qualitative (01/05/2022 1:56 PM EDT) HCV NON-REACTIV E NON-REACTI VE [facility] Blood 01/05/2022 1:56 PM EDT 01/05/2022 1:58 PM EDT us Marleny Acosta PA LAB BLOOD ORDERABLES Fin al Result Performing Organization Address City/[facility]/ZIP Co de Phone Number [address] [address] * BD DXA AXIAL (SPINE) WITH HIP [...] bone mineral density was calculated at 0.643 gm/za3vhjm a T- score of -1.9 falling within [...] Maintenance Insurance MEDICARE PART A & B [facility] MEDICARE PART A & B [facility] MEDICARE PART A & B [facility] MEDICARE PART A & B [facility] MEDICARE PART A & B [facility] MEDICARE PART A & B [facility] MEDICARE PART A & B [facility] MEDICARE PART A & B [employer] [facility] MEDICARE PART A & B [facility] Advance Directives For more information, please contact: [phone] (9AM - 5PM [facility], Saturday-Saturday) Documents on File Type Date Recorded Patient Commercial Pest Control Representative Expl anation MOLST 08/22/2020 4:20 PM Healthcare [...] Agent (Proxy form on file) Care Teams Crate Liner Relationship Specialty Start Date End Date Keren Poon ORI Glaser [address] [place] [address] 2[address] [place] [address] [email or web address] PCP - General Family Medicine 01/31/23 Cash Fernandes MD [address] [place] [address] Gastroenterology 08/23/20 Willi Wells MD [address] [place] [address] Internal [facility] [place] [address] Rheumatology 02/04/24 Jose Thakur MD [address] [place] [address] Doping Supervisor Pulmonary Disease 03/17/24 Dana Rucker FNP 15 [facility], [address] [place] [address] [email or web address] Nurse Practitioner Infectious Diseases 05/21/24 Jonathan Alvarez MD [facility], [address] [place] [address] Urology 05/14/23 Anival Borja MD [address] [place] [address], [address] [place] [address] [email or web address] Neurologist Neurology 01/04/23 Lyndsay Reynoso FNP [address] [place] [address] Nurse Practitioner Pain Medicine 05/27/22 Gutierrez Pittman MD [address] [place] [phone] Tire And Lube Technician Cardiology 05/27/24 Additional Source Comments The information contained in this document represents components of the legal health record. It is not the complete legal health record.[facility]
--- OUTSIDE RECORDS SUMMARY | 2024-12-23 12:14 | XMS_ITS | Encounter Summary ---
Author Organization [facility] Address [address] [place] [address] Phone Care Team Providers Care Greenhouse Technician Name Role Phone Patrick Sanchez MD Unavailable Charly Saxena DO Primary Care Provider [phone] Cheryl Calderon MD Primary Care Provider Keren Mabry MD Unavailable Louisa Hogan MD Unavailable Charly Saxena DO Unavailable Abhinav Muhammad MD Unavailable [phone] Cheryl Giraldo NP Unavailable Wilfrido Steel MD Unavailable [phone] Sharon Martin PA-C Unavailable Ita Pineda CNP Primary Care Provider Cash Fernandes MD Unavailable [phone] Seven Menchaca MD Unavailable [phone] Chavo Jack MD Primary Care Provider Keren Poon Jailyn [facility] Primary Care Provid er Chavo Jack MD Unavailable Willi Wells MD Unavailable Unavailable Jose Thakur MD Unavailable Dana Rucker Unavailable [phone] Jonathan Alvarez MD Unavailable [phone] Anival Borja MD Unavailable [place] Lyndsay Linda [facility] Unavailable [phone] Gutierrez Pittman MD Unavailable [phone] Encounter Details Date Type Department Care Team (Late st Contact Info) Description 12/20/2017 Procedure Pass BWF Periop 6th floor [address] [place] [address] Social History Tobacco Use Types Packs/Day Years [...] Description 12/25/2024 2:30 PM EDT Office Visit [facility] Infectious Diseases [address] [place] [address] Dana Rucker FNP 15 [facility], 2nd [place] [address] 01/01/2025 1:00 PM EDT Office Visit [facility] Services [address] [place] [address] Dana Rucker FNP [address] [address] Nereyda Wong, PT [address] [place] [address] 01/07/2025 2:30 PM EDT Office Visit [facility] Pulmonary, Allergy and Critical Care Medicine 10 [place] [address] Jose Thakur MD [address] [place] [address] 01/19/2025 2:30 PM EDT Office Visit [facility] Rehabilitation Services [address] [place] [address] Dana Rucker, [facility] [address] [place] [address] [address] Nereyda Wong, PT [address] [place] [address] 01/26/2025 2:30 PM EDT Office Visit [facility] Rehabilitation Services [address] [place] [address] Dana Rucker, [facility] [address] [address] Nereyda Wong, PT [address] [place] [address] 01/29/2025 3:00 PM EDT Office Visit [facility] [address] [place] [address] [place] [address] Keren Poon, POKER DEALER [address] [place] [address] 02/01/2025 3:00 PM EDT Office Visit [address] [place] [address] Keren Poon CNP [address] [place] [address] 03/02/2025 2:30 PM EST Office Visit [address] [address] DarnellJosefinah Leslee, [facility] [address] [address] Nereyda Wong, PT [address] [place] [address] 03/09/2025 2:30 PM EST Office Visit [address] [address] DarnellDana maguire Leslee, [facility] [address] [address] Nereyda Wong, PT [address] [place] [address] 03/16/2025 2:30 PM EST Office Visit [address] [address] ChaimDana Leslee, [facility] [address] [address] Nereyda Wong, PT [address] [place] [address] 06/03/2025 2:00 PM EST Office Visit [address] [place] [address] Keren Poon, ORI 170 [facility], 2nd [place] [address] [email or web address] documented as [...] documented as of this encounter Care Teams Greenhouse Technician Relationship Specialty Start Date End Date Charly Saxena DO [address] [place] [address] [email or web address] PCP - General Internal Medicine 10/05/14 04/22/18 Cheryl Calderon MD [address] [place] [address] PCP - General Family Medicine 04/23/18 08/18/20 Ita Pineda, ORI [address] [place] [address] [email or web address] PCP - General Internal Medicine 08/19/20 09/17/22 Chavo Jack MD [address] [place] [address] PCP - General Internal Medicine 09/18/22 01/30/23 Keren Poon CNP [address] [place] [address], 2nd [place] [address] [email or web address] PCP - General Family Medicine 01/31/23 Patrick Sanchez MD [address] [place] [address] Department [place] [address] [email or web address] Historical LMR Provider 09/10/14 Keren Mabry MD [address] [place] [address] Historical LMR Provider 07/10/18 Louisa Hogan MD [address] [place] [address] [email or web address] Historical LMR Provider 07/10/1807/29 Charly Saxena DO [address] [place] [address] Historical LMR Provider 07/10/18 08/22/20 Abhinav Muhammad MD 115 [facility] 104 [place] [address] [email or web address] Historical LMR Provider 07/10/18 08/22/20 Cheryl Giraldo NP 94 [place] [address] [email or web address] Historical LMR Provider 07/10/18 08/22/20 Wilfrido Steel MD [address] [place] [address] [email or web address] Historical LMR Provider 07/10/18 08/22/20 Sharon Martin PA-C 115 [facility] 104 [place] [address] Historical LMR Provider 07/10/18 08/22/20 Cash Fernandes MD [address] [place] [address] [email or web address] Gastroenterology 08/23/20 Seven Menchaca MD [address] [place] [address] Insurance Assigned Provider 08/04/22 08/03/23 Chavo Jack MD [address] [place] [address] [email or web address] Insurance Assigned Provider 08/03/23 05/04/24 Willi Wells MD [address] [place] [address] Internal [facility] Residency BRAYDEN Mock [address] Rheumatology 02/04/24 Jose Thakur MD [address] [place] [address] Tripe Cooker Pulmonary Disease 03/17/24 Dana Rucker FNP 15 [facility], 2nd [place] [address] Nurse Practitioner Infectious Diseases 05/21/24 Jonathan Alvarez MD [address] [place] [address], [address] [place] [address] Urology 05/14/23 Anival Borja MD [address] [place] [address], [address] [place] [address] Neurologist Neurology 01/04/23 Lyndsay Reynoso FNP [address] [place] [address] Nurse Practitioner Pain Medicine 05/27/22 Gutierrez Pittman MD [address] [place] [phone] Tso Cardiology 05/27/24 documented as of this encounter Additional Source Comments The information contained in this document represents components of the legal health record. It is not the complete legal health record.[facility]
--- OUTSIDE RECORDS SUMMARY | 2024-12-23 12:14 | XMS_ITS | Encounter Summary ---
Author Organization [facility] Address [address] [place] [address] Care Team Providers Care Criminal Intelligence Analyst Name Role Phone Alberto Pacheco Primary Care Provider [phone] Charly Saxena Primary Care Provider [phone] Cheryl Calderon MD Primary Care Provider [phone] Encounter Details Date Type Department Care Team (Late st Contact Info) Description 01/23/2013 Orders Only [facility] Rheumatology [address] [place] [address] Abel Fierro MD [address] [place] [address] Social History Tobacco Use Types Packs/Day Years [...] DIAGNOSTICS Comment:{SED RATE BY MODIFIE D KUNAL {[id number]) 01/23/2013 4:26 PM EDT 01/23/2013 11:06 PM EDT Narrative Resulting Agency Comment [id number] us Abel Fierro MD LAB SAME DAY RESULT Final Resul t Performing Organization Address City/State/[facility] Co de Phone Number [facility] [address] [place] [address] * C-REACTIVE PROTEIN (CRP) - INFLAMMATION (01/23/2013 4:26 PM EDT) C reactive protein 0.49 <0.80 mg/dL [facility] Comment: {C-REACTIVE PROTEIN {[id number]) Please be advised that patients taking Carboxypenicillins may exhibit falsely decreased C-Reactive Protein levels due to an analytical interference in this assay. 01/23/2013 4:26 PM EDT 01/23/2013 11:06 PM EDT Narrative Resulting Agency Comment [id number] us Abel Fierro MD LABORATORY Final Result Performing Organization Address [facility] Co de Phone Number [facility] [address] [place] [address] * CREATININE WITH GLOMERULAR FILTRATION RATE, ESTIMATED (EGFR) (01/23/2013 4:26 PM EDT) Creatinine 0.81 0.50 - 1.05 mg/dL [facility] Comment: {CREATININE {[id number]) For patients >49 years of age, the reference limit for Creatinine is approximately 13% higher for people identified as -Zambian. GFR 80 > OR = 60 mL/min/1. 73m2 [facility] Comment:{eGFR NON-AFR. AMERI CAN {[id number]) GFR () 93 > OR = 60 mL/min/1. 73m2 [facility] Comment:{eGFR AMERIC AN {[id number]) 01/23/2013 4:26 PM EDT 01/23/2013 11:06 PM [...] needs for GFR calculation. Resulting Agency Comment [id number] us Abel Fierro MD LAB SAME DAY RESULT Final Resul t Performing Organization Address [facility] Co de Phone Number [facility] [address] [place] [address] * (ABNORMAL) CBC INCLUDES DIFFERENTIAL AND PLATELET COUNT (01/23/2013 4:26 PM EDT) WBC 7.3 3.8 - 10.8 Thousand/ uL [facility] Comment:{WHITE BLOOD CELL CO UNT {[id number]) RBC 5.80(H) 3.80 - 5.10 Million/u L [facility] Comment:{RED BLOOD CELL COUN T {[id number]) Hemoglobin 15.0 11.7 - 15.5 g/dL [facility] Comment:{HEMOGLOBIN {[id number]) Hematocrit 47.0(H) 35.0 - 45.0 % [facility] Comment:{HEMATOCRIT {[id number]) MCV 81.1 80.0 - 100.0 fL [facility] Comment:{MCV {[id number]) MCH 25.9(L) 27.0 - 33.0 pg [facility] Comment:{MCH {[id number]) MCHC 31.9(L) 32.0 - 36.0 g/dL [facility] Comment:{MCHC {[id number]) RDW 16.0(H) 11.0 - 15.0 % [facility] Comment:{RDW {[id number]) PLT 327 140 - 400 Thousand/ uL [facility] Comment:{PLATELET COUNT {[id number]) MPV 7.8 7.5 - 11.5 fL [facility] Comment:{MPV {[id number]) Neutrophils # 3548 1500 - 7800 cells/uL [facility] Comment:{ABSOLUTE NEUTROPHIL S {[id number]) Lymphocytes # 2745 850 - 3900 cells/uL [facility] Comment:{ABSOLUTE LYMPHOCYTE S {[id number]) Monocytes # 767 200 - 950 cells/uL [facility] Comment:{ABSOLUTE MONOCYTES {[id number]) Eosinophils # 190 15 - 500 cells/uL [facility] Comment:{ABSOLUTE EOSINOPHIL S {[id number]) Basophils # 51 0 - 200 cells/uL [facility] Comment:{ABSOLUTE BASOPHILS {[id number]) Neutrophils % 48.6 % [facility] Comment:{NEUTROPHILS {[id number]) Lymphocytes % 37.6 % [facility] Comment:{LYMPHOCYTES {[id number]) Monocytes % 10.5 % [facility] Comment:{MONOCYTES {[id number]) Eosinophils % 2.6 % [facility] Comment:{EOSINOPHILS {[id number]) Basophils % 0.7 % [facility] Comment:{BASOPHILS {[id number]) 01/23/2013 4:26 PM EDT 01/23/2013 11:06 PM EDT Narrative Resulting Agency Comment [id number] us Abel Fierro MD LAB SAME DAY RESULT Final Resul t Performing Organization Address [facility] de Phone Number [facility] [address] [place] [address] * ASPARTATE AMINOTRANSFERASE (AST), SERUM (01/23/2013 4:26 PM EDT) AST (SGOT) 22 10 - 35 U/L [facility] Comment:{AST {[id number]) 01/23/2013 4:26 PM EDT 01/23/2013 11:06 PM EDT Narrative Resulting Agency Comment [id number] us Abel Fierro MD LAB SAME DAY RESULT Final Resul t Performing Organization Address [facility] de Phone Number [facility] [address] [place] [address] * ALANINE AMINOTRANSFERASE (ALT), SERUM (01/23/2013 4:26 PM EDT) ALT (SGPT) 21 6 - 29 U/L [facility] Comment:{ALT {[id number]) 01/23/2013 4:26 PM EDT 01/23/2013 11:06 PM EDT Narrative Resulting Agency Comment [id number] Abel Fierro MD LAB SAME DAY RESULT Final Resul t Performing Organization Address [facility] de Phone Number [facility] [address] [place] [address] documented in this encounter Visit Diagnoses Diagnosis Rheumatoid arthritis(714.0) Rheumatoid arthritis documented in this encounter Care Teams Criminal Intelligence Analyst Relationship Specialty Start Date End Date Alberto Pacheco [address] [place] [address] PCP - General 07/19/08 05/24/13 Charly Saxena [facility] [address] [place] [address] PCP - General Internal Medicine 05/25/13 07/16/17 Cheryl Calderon MD [facility] Medicine [address] [place] [address] PCP - General Internal Medicine 07/17/17 documented as of this encounter
--- OUTSIDE RECORDS SUMMARY | 2024-12-23 12:14 | XMS_ITS | Encounter Summary ---
Author Organization [facility] Address [address] [place] [address] Care Team Providers Care Plc Engineer Name Role Phone Alberto Pacheco Primary Care Provider [phone] Charly Saxena Primary Care Provider [phone] Cheryl Calderon MD Primary Care Provider [phone] Encounter Details Date Type Department Care Team (Late st Contact Info) Description 08/05/2012 Orders Only [facility] Rheumatology [address] [place] [address] Abel Fierro MD [address] [place] [address] Social History Tobacco Use Types Packs/Day Years [...] - 1.05 mg/dL [facility] Comment: {CREATININE {[id number]) For patients >49 years of age, the reference limit for Creatinine is approximately 13% higher for people identified as -[place]ruguayan. GFR 82 > OR = 60 mL/min/1. 73m2 [facility] Comment:{eGFR NON-AFR. AMERI CAN {[id number]) GFR () 95 > OR = 60 mL/min/1. 73m2 [facility] Comment:{eGFR AMERIC AN {[id number]) 08/05/2012 12:5 3 PM EDT 08/05/2012 4:46 [...] needs for GFR calculation. Resulting Agency Comment [id number] us Abel Fierro MD LAB SAME DAY RESULT Final Resul t [facility] [address] [place] [address] * (ABNORMAL) CBC INCLUDES DIFFERENTIAL AND PLATELET COUNT (08/05/2012 12:53 PM EDT) WBC 7.8 3.8 - 10.8 Thousand/ uL [facility] Comment:{WHITE BLOOD CELL CO UNT {[id number]) RBC 5.22(H) 3.80 - 5.10 Million/u L [facility] Comment:{RED BLOOD CELL COUN T {[id number]) Hemoglobin 14.0 11.7 - 15.5 g/dL [facility] Comment:{HEMOGLOBIN {[id number]) Hematocrit 44.8 35.0 - 45.0 % [facility] Comment:{HEMATOCRIT {[id number]) MCV 85.8 80.0 - 100.0 fL [facility] Comment:{MCV {[id number]) MCH 26.9(L) 27.0 - 33.0 pg [facility] Comment:{MCH {[id number]) MCHC 31.4(L) 32.0 - 36.0 g/dL [facility] Comment:{MCHC {[id number]) RDW 15.9(H) 11.0 - 15.0 % [facility] Comment:{RDW {[id number]) PLT 305 140 - 400 Thousand/ uL [facility] Comment:{PLATELET COUNT {[id number]) MPV 8.0 7.5 - 11.5 fL [facility] Comment:{MPV {[id number]) Neutrophils # 3237 1500 - 7800 cells/uL [facility] Comment:{ABSOLUTE NEUTROPHIL S {[id number]) Lymphocytes # 3229 850 - 3900 cells/uL [facility] Comment:{ABSOLUTE LYMPHOCYTE S {[id number]) Monocytes # 1014(H) 200 - 950 cells/uL [facility] Comment:{ABSOLUTE MONOCYTES {[id number]) Eosinophils # 273 15 - 500 cells/uL [facility] Comment:{ABSOLUTE EOSINOPHIL S {[id number]) Basophils # 47 0 - 200 cells/uL [facility] Comment:{ABSOLUTE BASOPHILS {[id number]) Neutrophils % 41.5 % [facility] Comment:{NEUTROPHILS {[id number]) Lymphocytes % 41.4 % [facility] Comment:{LYMPHOCYTES {[id number]) Monocytes % 13.0 % [facility] Comment:{MONOCYTES {[id number]) Eosinophils % 3.5 % [facility] Comment:{EOSINOPHILS {[id number]) Basophils % 0.6 % [facility] Comment:{BASOPHILS {[id number]) 08/05/2012 12:5 3 PM EDT 08/05/2012 4:46 PM EDT Narrative Resulting Agency Comment [id number] us Abel Fierro MD LAB SAME DAY RESULT Final Resul t Performing Organization Address City/[facility] Co de Phone Number [facility] [address] [place] [address] * ALANINE AMINOTRANSFERASE (ALT), SERUM (08/05/2012 12:53 PM EDT) ALT (SGPT) 18 6 - 40 U/L [facility] Comment:{ALT {[id number]) 08/05/2012 12:5 3 PM EDT 08/05/2012 4:46 PM EDT Narrative Resulting Agency Comment [id number] us Abel Fierro MD LAB SAME DAY RESULT Final Resul t Performing Organization Address [facility] Co de Phone Number [facility] [address] [place] [address] * ASPARTATE AMINOTRANSFERASE (AST), SERUM (08/05/2012 12:53 PM EDT) AST (SGOT) 17 10 - 35 U/L [facility] Comment:{AST {[id number]) 08/05/2012 12:5 3 PM EDT 08/05/2012 4:46 PM EDT Narrative Resulting Agency Comment [id number] us Abel Fierro MD LAB SAME DAY RESULT Final Resul t Performing Organization Address City/[facility] Co de Phone Number [facility] [address] [place] [address] documented in this encounter Visit Diagnoses Diagnosis Rheumatoid arthritis(714.0) Rheumatoid arthritis documented in this encounter Care Teams Plc Engineer Relationship Specialty Start Date End Date Alberto Pacheco [address] [place] [address] PCP - General 07/19/08 05/24/13 Charly Saxena [facility] [place] [address] PCP - General Internal Medicine 05/25/13 07/16/17 Cheryl Calderon MD [facility] Medicine [address] [place] [address] PCP - General Internal Medicine 07/17/17 documented as of this encounter
--- OUTSIDE RECORDS SUMMARY | 2024-12-23 12:15 | XMS_ITS | Encounter Summary ---
Author Organization [facility] Address [address] [place] [address] Phone Care Team Providers Care Core Stripper Name Role Phone Cash Fernandes MD Unavailable [phone] Keren Poon [facility] Primary Care Provid er Willi Wells MD Unavailable Unavailable Jose Thakur MD Unavailable Dana Rucker ADOBE LAYER HELPER Unavailable Jonathan Alvarez MD Unavailable [phone] Anival Borja MD Unavailable [phone] Lyndsay Reynoso ADOBE LAYER HELPER Unavailable [phone] Gutierrez Pittman MD Unavailable [phone] Encounter Details Date Type Department Care Team (Late st Contact Info) Description 05/09/2024 Procedure Pass [facility], Ct Scan - [address] [address] Social History Tobacco Use Types Packs/Day Years [...] Description 12/25/2024 2:30 PM EDT Office Visit [facility] Infectious Diseases [address] [place] [address] Dana Rucker FNP [address] [place] [address] 01/01/2025 1:00 PM EDT Office Visit [facility] [address] [place] [address] Dana Rucker FNP [address] [place] [address] Nereyda Wong, PT [address] [place] [address] 01/07/2025 2:30 PM EDT Office Visit [facility] Medicine [address] [place], [place] [id number] Jose Thakur MD [address] [place] [address] 01/19/2025 2:30 PM EDT Office Visit [facility] [address] [place], [place] [phone] Josefina Ruckerh Leslee, [facility] 15 [facility], [address] [place] [address] Nereyda Wong, PT [address] [place] [address] 01/26/2025 2:30 PM EDT Office Visit [facility] [address] [place] [address] Dana Ruckerley, [facility] 15 [facility], [address] [place] [address] Nereyda Wong, PT [address] [place] [address] 01/29/2025 3:00 PM EDT Office Visit [address] [place] [address] Keren Poon, GLOBAL CREATIVE CHAIRMAN [address] [address] 02/01/2025 3:00 PM EDT Office Visit [address] [place] [address] Keren Poon, GLOBAL CREATIVE CHAIRMAN [address] [place] [address] 03/02/2025 2:30 PM EST Office Visit [address] [address] Dana Ruckerley, [facility] 15 [facility], [address] [place] [address] Nereyda Wong, PT [address] [place] [address] 03/09/2025 2:30 PM EST Office Visit [facility] [address] [place] [address] Dana Rucker, [facility] [address] [address] Nereyda Wong, PT [address] [place] [address] 03/16/2025 2:30 PM EST Office Visit [facility] [address] [place] [address] Dana Rucker, [facility] [address] [address] Nereyda Wong, PT [address] [place] [address] 06/03/2025 2:00 PM EST Office Visit [facility] [address] [place] [address] [place] [address] Keren Poon, GLOBAL CREATIVE CHAIRMAN [address] [address] documented as of this encounter Visit Diagnoses [...] documented as of this encounter Care Teams Core Stripper Relationship Specialty Start Date End Date Keren PoonORI [address] [place] [address], [address] [place] [address] [email or web address] PCP - General Family Medicine 01/31/23 Cash Fernandes MD [address] [place] [address] [email or web address] Gastroenterology 08/23/20 Willi Wells MD [address] [facility] [place] [address] Rheumatology 02/04/24 Jose Thakur MD [address] [place] [address] [email or web address] Acid Cutter Pulmonary Disease 03/17/24 Dana Rucker FNP 15 [facility], [address] [place] [address] [email or web address] Nurse Practitioner Infectious Diseases 05/21/24 Jonathan Alvarez MD [address] [place] [address], [address] [place] [address] [email or web address] Urology 05/14/23 Anival Borja MD [address] [place] [address], [address] [place] [address] [email or web address] Neurologist Neurology 01/04/23 Lyndsay Reynoso FNP [address] [address] Nurse Practitioner Pain Medicine 05/27/22 Gutierrez Pittman MD [address] [place] [phone] Vehicle Assembler Cardiology 05/27/24 documented as of this encounter Additional Source Comments The information contained in this document represents components of the legal health record. It is not the complete legal health record.[facility]
--- OUTSIDE RECORDS SUMMARY | 2024-12-23 12:15 | XMS_ITS | Encounter Summary ---
Author Organization [facility] Address [address] [place] [address] Phone Care Team Providers Care Supervisor Cleaning And Annealing Name Role Phone Cash Fernandes MD Unavailable [phone] Seven Mencahca MD Unavailable Chavo Jack MD Primary Care Provider Keren Poon [facility] Primary Care Provid er Chavo Jack MD Unavailable Willi Wells MD Unavailable Unavailable Jose Thakur MD Unavailable [phone] Dana Rucker DESKIDDING MACHINE OPERATOR Unavailable Jonathan Alvarez MD Unavailable [phone] Anival Borja MD Unavailable [phone] Lyndsay Reynoso DESKIDDING MACHINE OPERATOR Unavailable Gutierrez Pittman MD Unavailable [phone] Reason for Referral * MRI/CAT Scan - Closed Specialty Diagnoses / Procedures Referred By Cayden montoya Referred To Contact Radiology Diagnoses Memory loss Procedures MRI Brain Anival Borja MD Phone: tel: fax: mailto: Referral ID Status Reason Start Date Expiration Date Visits Re quested Visits Authorized [id number] Closed 10/04/2022 1 1 Encounter Details Date Type Department Care Team (Latest Contact Info) Description 10/04/2022 Transcribe Orders Virtual Department [address] [place] [address] Anival Borja MD [address] [place] [address], [address] [place], [place] [phone] [email or web address] Memory loss (Primary Dx) Social History Tobacco [...] Description 12/25/2024 2:30 PM EDT Office Visit [facility] Infectious Diseases [address] [place] [address] Dana Rucker FNP [address] [place] [address] 01/01/2025 1:00 PM EDT Office Visit [facility] [address] [place] [address] Dana Rucker FNP [address] [address] Nereyda Wong, PT [address] [place] [address] 01/07/2025 2:30 PM EDT Office Visit [facility] Medicine 10 [facility] [place] [address] Jose Thakur MD [address] [place] [address] 01/19/2025 2:30 PM EDT Office Visit [facility] [address] [place] [address] Dana Rucker, DIVYA 15 [facility], [address] [place] [address] Nereyda Wong, PT [address] [place] [address] 01/26/2025 2:30 PM EDT Office Visit [address] [address] Dana Rucker, DESKIDDING MACHINE OPERATOR 15 [facility], [address] [place] [address] Nereyda Wong, PT [address] [place] [address] 01/29/2025 3:00 PM EDT Office Visit [address] [place] [address] Keren Poon, JANITORIAL TECH [address] [place] [address] 02/01/2025 3:00 PM EDT Office Visit [address] [place] [address] Keren Poon, JANITORIAL TECH [address] [place] [address] 03/02/2025 2:30 PM EST Office Visit [facility] [address] [place] [address] Dana Rucker [facility] [address] [address] Nereyda Wong, PT [address] [place] [address] 03/09/2025 2:30 PM EST Office Visit [address] [address] Dana Rucker, [address] [address] Nereyda Wong, PT [address] [place] [address] 03/16/2025 2:30 PM EST Office Visit [address] [address] Dana Rucker, [address] [address] [email or web address] Nereyda Wong, PT [address] [place] [address] 06/03/2025 2:00 PM EST Office Visit [facility] [address] [place] [address] [place] [address] Keren Poon, JANITORIAL TECH [address] [place] [address] [email or web address] documented as of this encounter Results * [...] as of this encounter Care Teams Supervisor Cleaning And Annealing Relationship Specialty Start Date End Date Chavo Jack MD [address] [place] [address] PCP - General Internal Medicine 09/18/22 01/30/23 Keren Poon CNP [address] [place] [address], [address] [place] [address] [email or web address] PCP - General Family Medicine 01/31/23 Cash Fernandes MD [address] [place] [address] Gastroenterology 08/23/20 Seven Menchaca MD [address] [place] [address] Insurance Assigned Provider 08/04/22 08/03/23 Chavo Jack MD [address] [place] [address] Insurance Assigned Provider 08/03/23 05/04/24 Willi Wells MD [address] [place] [address] [place] [address] Rheumatology 02/04/24 Jose Thakur MD [address] [place] [address] Product Coordinator Pulmonary Disease 03/17/24 Dana Rucker FNP 15 [facility], 2nd [place] [address] Nurse Practitioner Infectious Diseases 05/21/24 Jonathan Alvarez MD [address] [place] [address], [address] [place] [address] Urology 05/14/23 Anival Borja MD [address] [place] [address], [address] [place] [address] Neurologist Neurology 01/04/23 Lyndsay Reynoso FNP [address] [place] [address] Nurse Practitioner Pain Medicine 05/27/22 Gutierrez Pittman MD [address] [place] [address] Crap Game Box Person Cardiology 05/27/24 documented as of this encounter Additional Source Comments The information contained in this document represents components of the legal health record. It is not the complete legal health record.[facility]
--- OUTSIDE RECORDS SUMMARY | 2024-12-23 12:15 | XMS_ITS | Encounter Summary ---
Author Organization [facility] Address [address] [place] [address] Phone Care Team Providers Care Sulfur Burner Name Role Phone Jessicaroxanne Ita Nelson [facility] Primary Care Provider Cash Fernandes MD Unavailable [phone] Seven Menchaca MD Unavailable Chavo Jack MD Primary Care Provider [phone] Keren Poon [facility] Primary Care Provid er Chavo Jack MD Unavailable Willi Wells MD Unavailable Unavailable Jose Thakur MD Unavailable Dana Rucker PAPER BOX MAKER Unavailable Jonathan Alvarez MD Unavailable [phone] Anival Borja MD Unavailable Lyndsay Reynoso PAPER BOX MAKER Unavailable Gutierrez Pittman MD Unavailable [phone] Reason for Referral * MRI/CAT Scan - Closed Specialty Diagnoses / Procedures Referred By Cayden montoya Referred To Contact Radiology Diagnoses Epigastric abdominal pain FH: pancreatic cancer Procedures CT Abdomen Only (No Pelvis) Argelia Taylor NP Phone: tel: fax: Referral ID Status Reason Start Date Expiration Date Visits Re quested Visits Authorized [id number] Closed 04/09/2022 04/09/2023 1 1 Encounter Details Date Type Department Care Team (Latest Contact Info) Description 04/09/2022 Transcribe Orders Virtual Department 30 [place] [address] Argelia Taylor NP 10 [place] [address] Epigastric abdominal pain (Primary Dx); FH: pancreatic [...] high school, GED, job training, learning the Belarusian language, technical skills, or developing parenting skills)? [...] Description 12/25/2024 2:30 PM EDT Office Visit [facility] Infectious Diseases 22 [place] [address] Dana Rucker FNP [address] [address] 01/01/2025 1:00 PM EDT Office Visit [facility] Rehabilitation Services 380 [place] [address] Dana Rucker [address] [address] Nereyda Wong, PT 380 [place] [address] 01/07/2025 2:30 PM EDT Office Visit [facility] 10 [place] [address] Jose Thakur MD 30 [place] [address] 01/19/2025 2:30 PM EDT Office Visit [facility] 380 [place] [address] Dana Rucker FNP [address] [address] Nereyda Wong, PT 380 [place] [address] 01/26/2025 2:30 PM EDT Office Visit [facility] 380 [place] [address] Dana Rucker, [address] [address] Nereyda Wong, PT 380 [place] [address] 01/29/2025 3:00 PM EDT Office Visit [address] [place] [address] Keren Poon, CONSTRUCTION SERVICES TECHNICIAN [address] [place] [address] 02/01/2025 3:00 PM EDT Office Visit [address] [place] [address] Keren Poon, CONSTRUCTION SERVICES TECHNICIAN [address] [place] [address] 03/02/2025 2:30 PM EST Office Visit [facility] 380 [place] [address] Dana Rucker PAPER BOX MAKER 15 [facility], [address] [place] [address] Nereyda Wong, PT 380 [place] [address] 03/09/2025 2:30 PM EST Office Visit [facility] 380 [place] [address] Dana Rucker, [facility] 15 [facility], [address] [place] [address] Nereyda Wong, PT 380 [place] [address] 03/16/2025 2:30 PM EST Office Visit [address] [address] Dana Rucker, [facility] [address] [address] Nereyda Wong, PT 380 [place] [address] 06/03/2025 2:00 PM EST Office Visit [facility] [address] [place] [address] [place] [address] Keren Pono, CONSTRUCTION SERVICES TECHNICIAN [address] [place] [address] documented as of this encounter Results * [...] documented as of this encounter Care Teams Sulfur Burner Relationship Specialty Start Date End Date Miriam Itasheryl Nelson CNP 40 [place] [address] [email or web address] PCP - General Internal Medicine 08/19/20 09/17/22 Chavo Jack MD [address] [place] [address] [email or web address] PCP - General Internal Medicine 09/18/22 01/30/23 Keren Poon CNP [address] [place] [address], 2nd [place] [address] [email or web address] PCP - General Family Medicine 01/31/23 Cash Fernandes MD [address] [place] [address] [email or web address] Gastroenterology 08/23/20 Seven Menchaca MD [address] [place] [address] Insurance Assigned Provider 08/04/22 08/03/23 Chavo Jack MD [address] [place] [address] Insurance Assigned Provider 08/03/23 05/04/24 Willi Wells MD 225 [facility] [place] [address] Rheumatology 02/04/24 Jose Thakur MD 30 [place] [address] Water Trainer Pulmonary Disease 03/17/24 Dana Rucker FNP 15 [facility], 2nd [place] [address] Nurse Practitioner Infectious Diseases 05/21/24 Jonathan Alvarez MD [address] [place] [address], [address] [place] [address] Urology 05/14/23 Anival Borja MD [address] [place] [address], [address] [place] [address] Neurologist Neurology 01/04/23 Lyndsay Reynoso FNP [address] [place] [address] Nurse Practitioner Pain Medicine 05/27/22 Gutierrez Pittman MD [address] [place] [phone] Rotor Assembler Cardiology 05/27/24 documented as of this encounter Additional Source Comments The information contained in this document represents components of the legal health record. It is not the complete legal health record.[facility]
--- OUTSIDE RECORDS SUMMARY | 2024-12-23 12:15 | XMS_ITS | Encounter Summary ---
Author Organization [facility] Address [address] [place] [address] Phone Care Team Providers Care Portfolio Architect Name Role Phone Patrick Sanchez MD Unavailable [phone] Cheryl Calderon MD Primary Care Provider Keren Mabry MD Unavailable Louisa Hogan MD Unavailable Charly Saxena DO Unavailable [phone] Abhinav Muhammad MD Unavailable [phone] Cheryl Giraldo FIELD SALES REPRESENTATIVE Unavailable Wilfrido Steel MD Unavailable [phone] Sharon Martin PA-C Unavailable Ita Pineda BRIM BLOCKER Primary Care Provider Cash Fernandes MD Unavailable [phone] Seven Menchaca MD Unavailable Chavo Jack MD Primary Care Provider [phone] Keren Poon [facility] Primary Care Provid er Chavo Jack MD Unavailable Willi Wells MD Unavailable Unavailable Jose Thakur MD Unavailable Chaim Danaverenice Camilo PROPERTY MASTER Unavailable Jonathan Alvarez MD Unavailable [phone] Anival Borja MD Unavailable [place] Lyndsay Linda PROPERTY MASTER Unavailable [phone] Gutierrez Pittman MD Unavailable [phone] Encounter Details Date Type Department Care Team (Late st Contact Info) Description 08/18/2020 Procedure Pass [facility], Ct Scan - [address] [address] Social History Tobacco Use Types Packs/Day Years [...] 10:47 PM EDT Annalisa Farias RN * Mccormick Suicide Severity Rating Scale (Screener/Recent Self-Report) Question [...] Description 12/25/2024 2:30 PM EDT Office Visit [facility] Infectious Diseases 22 [place] [address] Dana Rucker, PROPERTY MASTER [address] [address] 01/01/2025 1:00 PM EDT Office Visit [address] [address] Dana Rucker FNP [address] [address] Nereyda Wong, PT 380 [place] [address] 01/07/2025 2:30 PM EDT Office Visit [facility] 10 [place] [address] Jose Thakur MD 30 [place] [address] 01/19/2025 2:30 PM EDT Office Visit [address] [address] Dana Rucekr, PROPERTY MASTER [address] [address] Nereyda Wong, PT 380 [place], [place] [address] 01/26/2025 2:30 PM EDT Office Visit [address] [address] [place], Dana Leslee, [address] [address] Nereyda Wong, PT 380 [place] [address] 01/29/2025 3:00 PM EDT Office Visit [address] [place] [address] Keren Poon, BRIM BLOCKER [address] [place] [address] 02/01/2025 3:00 PM EDT Office Visit [address] [place] [address] Keren Poon, BRIM BLOCKER [address] [place] [address] 03/02/2025 2:30 PM EST Office Visit [address] [address] Dana Rucker, [address] [address] Nereyda Wong, PT 380 [place] [address] 03/09/2025 2:30 PM EST Office Visit [address] [address] Dana Rucker, [address] [address] Nereyda Wong, PT 380 [place] [address] 03/16/2025 2:30 PM EST Office Visit [facility] Rehabilitation Services 380 [place] [address] Dana Rucker, PROPERTY MASTER 15 [facility], 2nd [place] [address] Nereyda Wong, PT 380 [place] [address] 06/03/2025 2:00 PM EST Office Visit [facility] [address] [place] [address] Keren Poon, ORI 170 [facility], 2nd [place] [address] documented as of this encounter Visit Diagnoses [...] documented as of this encounter Care Teams Portfolio Architect Relationship Specialty Start Date End Date Cheryl Calderon MD [address] [place] [address] PCP - General Family Medicine 04/23/18 08/18/20 Ita Pineda CNP 40 [place], [place] [email or web address] PCP - General Internal Medicine 08/19/20 09/17/22 Chavo Jack MD 40 [place], [place] PCP - General Internal Medicine 09/18/22 01/30/23 Keren Poon CNP [address] [place] [address], 2nd [place] [address] [email or web address] PCP - General Family Medicine 01/31/23 Patrick Sanchez MD [address] [place] [address] Department [place] [address] [email or web address] Historical LMR Provider 09/10/14 Keren Mabry MD [address] [place] [address] Historical LMR Provider 07/10/18 Louisa Hogan MD [address] [place] [address] [email or web address] Historical LMR Provider 07/10/1807/29 Charly Saxena DO 1280 [facility]. 301 [place] [address] Historical LMR Provider 07/10/18 08/22/20 Abhinav Muhammad MD 115 [facility]. 104 [place] [address] [email or web address] Historical LMR Provider 07/10/18 08/22/20 Cheryl Giraldo NP 94 [place] [address] [email or web address] Historical LMR Provider 07/10/18 08/22/20 Wilfrido Steel MD [address] [place] [address] Historical LMR Provider 07/10/18 08/22/20 Sharon Martin PA-C 115 [facility]. 104 [place] [address] Historical LMR Provider 07/10/18 08/22/20 Cash Fernandes MD [address] [address] Gastroenterology 08/23/20 Seven Menchaca MD [address] [place] [address] Insurance Assigned Provider 08/04/22 08/03/23 Chavo Jack MD 40 [place] [address] [email or web address] Insurance Assigned Provider 08/03/23 05/04/24 Willi Wells MD [address] [place] [address] Rheumatology 02/04/24 Jose Thakur MD [address] [place] [address] [email or web address] Driver Courier Pulmonary Disease 03/17/24 Dana Rucker FNP 15 [facility], 2nd [place] [address] [email or web address] Nurse Practitioner Infectious Diseases 05/21/24 Jonathan Alvarez MD [address] [place] [address], [address] [place] [address] [email or web address] Urology 05/14/23 Anival Borja MD [address] [place] [address], [address] [place] [address] [email or web address] Neurologist Neurology 01/04/23 Lyndsay Reynoso FNP [address] [place] [address] Nurse Practitioner Pain Medicine 05/27/22 Gutierrez Pittman MD [address] [place] [phone] Director Of Clinical Applications Cardiology 05/27/24 documented as of this encounter Additional Source Comments The information contained in this document represents components of the legal health record. It is not the complete legal health record.[facility]
--- OUTSIDE RECORDS SUMMARY | 2024-12-23 12:15 | XMS_ITS | Encounter Summary ---
Author Organization [facility] Address [address] [place] [address] Phone Care Team Providers Care Bond Underwriter Name Role Phone Cash Fernandes MD Unavailable Keren Poon [facility] Primary Care Provid er Chavo Jack MD Unavailable Willi Wells MD Unavailable Unavailable Jose Thkaur MD Unavailable [phone] Dana Rucker DELINQUENT TAX COLLECTION ASSISTANT Unavailable Jonathan Alvarez MD Unavailable [phone] Anival Borja MD Unavailable Lyndsay Reynoso DELINQUENT TAX COLLECTION ASSISTANT Unavailable [phone] Gutierrez Pittman MD Unavailable [phone] Encounter Details Date Type Department Care Team (Latest Contact Info) Description 04/30/2024 Transcribe Orders Virtual Department 30 [place] [address] Argelia Taylor, JULI 10 [place], [place] [id number] Lower abdominal pain (Primary Dx); Diarrhea, unspecified [...] Description 12/25/2024 2:30 PM EDT Office Visit [facility] Infectious Diseases 22 [place] [address] Dana Rucker FNP [address] [address] 01/01/2025 1:00 PM EDT Office Visit [facility] Rehabilitation Services 380 [place] [address] Dana Rucker FNP 15 [facility], [address] [place] [address] Nereyda Wong, PT 380 [place] [address] 01/07/2025 2:30 PM EDT Office Visit [facility] 10 [facility] [place] [address] Jose Thakur MD 30 [place] [address] 01/19/2025 2:30 PM EDT Office Visit [facility] 380 [place] [address] Dana Rucker, DELINQUENT TAX COLLECTION ASSISTANT 15 [facility], [address] [place] [address] Nereyda Wong, PT 380 [place] [address] 01/26/2025 2:30 PM EDT Office Visit [address] [address] Dana Rucker, [facility] [address] [address] Nereyda Wong, PT 380 [place] [address] 01/29/2025 3:00 PM EDT Office Visit [address] [place] [address] Keren Poon, SOFTWARE SALES MANAGER [address] [place] [address] 02/01/2025 3:00 PM EDT Office Visit [address] [place] [address] Keren Poon, ORI [address] [place] [address] 03/02/2025 2:30 PM EST Office Visit [facility] 380 [place] [address] Dana Rucker, [facility] 15 [facility], [address] [place] [address] Nereyda Wong, PT 380 [place] [address] 03/09/2025 2:30 PM EST Office Visit [address] [address] Dana Rucker, [facility] 15 [facility], [address] [place] [address] Nereyda Wong, PT 380 [place] [address] 03/16/2025 2:30 PM EST Office Visit [address] [address] Dana Rucker, [facility] [address] [address] Nereyda Wong, PT 380 [place] [address] 06/03/2025 2:00 PM EST Office Visit [facility] [address] [place] [address] [place] [address] Keren Poon, [address] [address] [email or web address] documented as of [...] documented as of this encounter Care Teams Bond Underwriter Relationship Specialty Start Date End Date Cleve Kerenrex Glaser, ORI [address] [place] [address], 2nd [place] [address] [email or web address] PCP - General Family Medicine 01/31/23 Cash Fernandes MD [address] [place] [address] [email or web address] Gastroenterology 08/23/20 Chavo Jack MD 40 [place] [address] [email or web address] Insurance Assigned Provider 08/03/23 05/04/24 Willi Wells MD 225 [facility] [place] [address] Rheumatology 02/04/24 Jose Thakur MD 30 [place] [address] [email or web address] Fire Patroller Pulmonary Disease 03/17/24 Dana Rucker FNP 15 [facility], 2nd [place] [address] Nurse Practitioner Infectious Diseases 05/21/24 [place] [address] [place] [address], [address] [place] [address] Urology 05/14/23 Anival Borja MD [address] [place] [address], [address] [place] [address] Neurologist Neurology 01/04/23 Lyndsay Reynoso FNP [address] [place] [address] Nurse Practitioner Pain Medicine 05/27/22 Gutierrez Pittman MD 40 [place] [address] Meter Maintenance Person Cardiology 05/27/24 documented as of this encounter Additional Source Comments The information contained in this document represents components of the legal health record. It is not the complete legal health record.[facility]
--- OUTSIDE RECORDS SUMMARY | 2024-12-23 12:15 | XMS_ITS | Encounter Summary ---
Author Organization [facility] Address [address] [place] [address] Phone Care Team Providers Care [facility] Name Role Phone Cash Fernandes MD Unavailable [phone] Keren Poon [facility] Primary Care Provid er Chavo Jack MD Unavailable Willi Wells MD Unavailable Unavailable Jose Thakur MD Unavailable [phone] Dana Rucker POT TENDER Unavailable Jonathan Alvarez MD Unavailable [phone] Anival Borja MD Unavailable Lyndsay Reynoso POT TENDER Unavailable Gutierrez Pittman MD Unavailable [phone] Encounter Details Date Type Department Care Team (Late st Contact Info) Description 05/01/2024 Ancillary Orders Virtual Department 30 [place] [address] Argelia Taylor, JULI 10 [place] [address] Lower abdominal pain (Primary Dx); Diarrhea, unspecified [...] 2:30 PM EDT Office Visit [facility] Infectious Diseases 22 [place] [address] Dana Rucker FNP [address] [address] 01/01/2025 1:00 PM EDT Office Visit [facility] Rehabilitation Services 380 [place] [address] Dana Rucker FNP [address] [address] Nereyda Wong, PT 380 [place] [address] 01/07/2025 2:30 PM EDT Office Visit [facility], All[facility] Critical [facility] Medicine 10 [facility] [place] [address] Jose Thakur MD 30 [place] [address] 01/19/2025 2:30 PM EDT Office Visit [facility] 380 [place] [address] Dana Rucker, [facility] [address] [address] MarvinNereyda, PT 380 [place] [address] 01/26/2025 2:30 PM EDT Office Visit [address] [address] Dana Rucker, [facility] [address] [address] Nereyda Wong, PT 380 [place] [address] 01/29/2025 3:00 PM EDT Office Visit [address] [place] [address] Keren Poon, CODING CONSULTANT [address] [place] [address] 02/01/2025 3:00 PM EDT Office Visit [address] [place] [address] Keren Poon, ORI [address] [place] [address] 03/02/2025 2:30 PM EST Office Visit [address] [address] Dana Rucker, [facility] 15 [facility], [address] [place] [address] Nereyda Wong, PT 380 [place] [address] 03/09/2025 2:30 PM EST Office Visit [facility] 380 [place] [address] Dana Rucker, [facility] 15 [facility], [address] [place] [address] Nereyda Wogn, PT 380 [place] [address] 03/16/2025 2:30 PM EST Office Visit [address] [address] Dana Rucker, [facility] 15 [facility], [address] [place] [address] Nereyda Wong, PT 380 [place] [address] 06/03/2025 2:00 PM EST Office Visit [facility] [address] [place] [address] [place] [address] Keren Poon, CODING CONSULTANT [address] [place] [address] [email or web address] documented as of this encounter Results * [...] clinician's provided indication for this examination in [facility]: Outside Radiology Order; Lower abdominal pain// [...] clinician's provided indication for this examination in [facility]:Outside Radiology Order; Lower abdominal pain// Diarrhea// [...] evidence of obstruction or pneumoperitoneum. Argelia Taylor MEAT LOINER IMG XR ABDOMEN Final Res ult documented [...] documented as of this encounter Care Teams [facility] Relationship Specialty Start Date End Date Jerseyroldansotero Kerenrex Glaser CNP [address] [place] [address], 2nd [place] [address] [email or web address] PCP - General Family Medicine 01/31/23 Cash Fernandes MD [address] [place] [address] Gastroenterology 08/23/20 Chavo Jack MD 40 [place] [address] [email or web address] Insurance Assigned Provider 08/03/23 05/04/24 Willi Wells MD 225 [place] [address] Rheumatology 02/04/24 Jose Thakur MD 30 [place] [address] Business Specialist Pulmonary Disease 03/17/24 Dana Rucker FNP 15 [facility], 2nd [place] [address] Nurse Practitioner Infectious Diseases 05/21/24 Jonathan Alvarez MD [address] [place] [address], [address] [place] [address] Urology 05/14/23 Anival Borja MD [address] [place] [address], [address] [place] [address] Neurologist Neurology 01/04/23 Lyndsay Reynoso FNP [address] [place] [address] Nurse Practitioner Pain Medicine 05/27/22 Gutierrez Pittman MD 40 [place] [address] [facility] 05/27/24 documented as of this encounter Additional Source Comments The information contained in this document represents components of the legal health record. It is not the complete legal health record.[facility]
--- OUTSIDE RECORDS SUMMARY | 2024-12-23 12:15 | XMS_ITS | Encounter Summary ---
Author Organization [facility] Address [address] [place] [address] Care Team Providers Care Traffic Engineer Name Role Phone Cheryl Calderon MD Primary Care Provider [phone] Encounter Details Date Type Department Care Team (Late st Contact Info) Description 07/15/2018 Orders Only [facility] Rheumatology [address] [place] [phone] Melanie Aguirre MD Social History Tobacco Use [...] 12:27 AM EDT Narrative Resulting Agency Comment [id number] us Melanie Aguirre MD LABORATORY Final Result Performing Organization Address City/[facility]/ZIP Co de Phone Number [facility] [address] [place] [address] * (ABNORMAL) ERYTHROCYTE SEDIMENTATION RATE (ESR), WESTERGREN (07/15/2018 4:34 PM EDT) Sedimentation Rate [place] (ESR) 50(H) < OR = 30 mm/h [facility] 07/15/2018 4:34 PM EDT 07/16/2018 12:27 AM EDT Narrative Resulting Agency Comment [id number] us Melanie Aguirre MD LAB SAME DAY RESULT Final Result Performing Organization Address City/[facility]/ZIP Co de Phone Number [facility] [address] [place] [address] * (ABNORMAL) COMPREHENSIVE METABOLIC PANEL WITH GFR [...] approximately 13% higher for people identified as -Guamanian. EGFR 95 > OR = 60 mL/min/1 [...] MD LABORATORY Final Result [facility] [address] [place] [address] * (ABNORMAL) CBC INCLUDES DIFFERENTIAL AND PLATELET [...] 12:27 AM EDT Narrative Resulting Agency Comment [id number] us Melanie Aguirre MD LAB SAME DAY RESULT Final Result Performing Organization Address City/State/[facility] Co de Phone Number [facility] [address] [place] [address] documented in this encounter Visit Diagnoses Diagnosis Rheumatoid arthritis involving multiple sites with positive rheumatoid factor (HCC) documented in this encounter Care Teams Traffic Engineer Relationship Specialty Start Date End Date Cheryl Calderon MD [facility] Adult Medicine [address] [place] [address] PCP - General Internal Medicine 07/17/17 documented as of this encounter
--- OUTSIDE RECORDS SUMMARY | 2024-12-23 12:15 | XMS_ITS | Encounter Summary ---
Author Organization [facility] Address [address] [place] [address] Care Team Providers Care Colored Leather Setter Name Role Phone Cheryl Calderon MD Primary Care Provider [phone] Encounter Details Date Type Department Care Team (Late st Contact Info) Description 12/23/2018 Orders Only [facility] Hematology/Oncology [address] [facility] [address] [place] [phone] Liliana Calderon, JULI [address] [place] [address] Social History Tobacco Use Types Packs/Day Years [...] a test for HCV RNA (test code 33944) is suggested. For additional information please refer to http://education.Tabfoundry/faq/XGE86z0 (This link is being provided for informational/ educational purposes only.) 12/23/2018 11:3 2 AM EDT 12/23/2018 11:23 PM EDT Narrative Resulting Agency Comment [id number] Liliana Calderon NP LABORATORY Final Result [facility] [address] [place] [address] * HEPATITIS B CORE ANTIBODY, TOTAL, SERUM (12/23/2018 11:32 AM EDT) Hepatitis B virus core Ab NON-REACTI VE NON-REACT MANOLO [facility] 12/23/2018 11:3 2 AM EDT 12/23/2018 11:23 PM EDT Narrative Resulting Agency Comment [id number] Liliana Nehemiasunder [employer] [facility] LABORATORY Final Result Performing Organization Address [facility] Co de Phone Number [facility] [address] [place] [address] * HEPATITIS B SURFACE ANTIGEN (12/23/2018 11:32 AM EDT) Hepatitis B virus surface Ag NON-REACTI VE NON-REACT MANOLO [facility] 12/23/2018 11:3 2 AM EDT 12/23/2018 11:23 PM EDT Narrative Resulting Agency Comment [id number] Liliana Nehemiasunder [facility] [employer] [facility] LABORATORY Final Result Performing Organization Address [facility] de Phone Number [facility] [address] [place] [address] * (ABNORMAL) HEPATIC FUNCTION PANEL (ALT,AST,ALK PH,BILI'S,TP,ALB) [...] 11:23 PM EDT Narrative Resulting Agency Comment [id number] Liliana Nehemiasunder [facility] [employer] [facility] LABORATORY Final Result Performing Organization Address [facility] Co de Phone Number [facility] [address] [place] [address] * CBC INCLUDES DIFFERENTIAL AND PLATELET COUNT [...] 11:23 PM EDT Narrative Resulting Agency Comment [id number] Liliana Calderon ROOF TILE LAYER LAB SAME DAY RESULT Final Result Performing Organization Address City/State/[facility] Co de Phone Number [facility] [address] [place] [address] documented in this encounter Visit Diagnoses Diagnosis Rheumatoid arthritis involving multiple sites with positive rheumatoid factor (HCC) documented in this encounter Care Teams Colored Leather Setter Relationship Specialty Start Date End Date Cheryl Calderon MD [facility] Adult Medicine [address] [place] [address] PCP - General Internal Medicine 07/17/17 documented as of this encounter
--- OUTSIDE RECORDS SUMMARY | 2024-12-23 12:15 | XMS_ITS | Encounter Summary ---
Author Organization [facility] Address [address] [place] [address] Phone Care Team Providers Care Carpenter Name Role Phone Cash Fenrandes MD Unavailable [phone] Seven Menchaca MD Unavailable [phone] Chavo Jack MD Primary Care Provider Keren Poon [facility] Primary Care Provid er Chavo Jack MD Unavailable Willi Wells MD Unavailable Unavailable Jose Thakur MD Unavailable Dana Rucker CARPENTERS SUPERVISOR Unavailable Jonathan Alvarez MD Unavailable [phone] Anival Borja MD Unavailable Lyndsay Reynoso CARPENTERS SUPERVISOR Unavailable Gutierrez Pittman MD Unavailable [phone] Encounter Details Date Type Department Care Team (Late st Contact Info) Description 10/11/2022 Transcribe Orders [facility] Laboratory [address] [place] [address] Anival Borja MD 69 [facility], [address] [place] [address] [email or web address] Social History Tobacco Use Types Packs/Day Years [...] Description 12/25/2024 2:30 PM EDT Office Visit [facility] Infectious Diseases [address] [place] [address] Dana Rucker FNP [address] [address] 01/01/2025 1:00 PM EDT Office Visit [address] [address] Dana Rucker CARPENTERS SUPERVISOR [address] [address] Nereyda Wong, PT 380 [place] [address] 01/07/2025 2:30 PM EDT Office Visit [facility] Pulmonary, Allergy and Critical Care Medicine 10 [place] [address] Jose Thakur MD 30 [place] [address] 01/19/2025 2:30 PM EDT Office Visit [address] [address] Dana Rucker CARPENTERS SUPERVISOR [address] [address] Nereyda Wong, PT 380 [place] [address] 01/26/2025 2:30 PM EDT Office Visit [facility] [address] [place] [address] Dana Rucker, [facility] [address] [address] Nereyda Wong, PT [address] [place] [address] 01/29/2025 3:00 PM EDT Office Visit [address] [place] [address] Keren Poon, PEDIATRIC PHYSICAL THERAPY ASSISTANT [address] [place] [address] 02/01/2025 3:00 PM EDT Office Visit [address] [place] [address] Keren Poon, PEDIATRIC PHYSICAL THERAPY ASSISTANT [address] [place] [address] 03/02/2025 2:30 PM EST Office Visit [address] [address] Dana Rucker, [address] [address] Nereyda Wong, PT [address] [place] [address] 03/09/2025 2:30 PM EST Office Visit [address] [address] Dana Rucker, [facility] [address] [address] Nereyda Wong, PT [address] [place] [address] 03/16/2025 2:30 PM EST Office Visit [facility] Services [address] [place] [address] Dana Rucker, CARPENTERS SUPERVISOR [address] [address] Nereyda Wong, PT [address] [place] [address] 06/03/2025 2:00 PM EST Office Visit [facility] [address] [place] [address] [place] [address] Keren Poon, PEDIATRIC PHYSICAL THERAPY ASSISTANT [address] [address] [email or web address] documented as of this encounter Visit Diagnoses [...] documented as of this encounter Care Teams Carpenter Relationship Specialty Start Date End Date Chavo Jack MD 40 [place] [address] PCP - General Internal Medicine 09/18/22 01/30/23 Keren Poon CNP [address] [place] [address], 2nd [place] [address] PCP - General Family Medicine 01/31/23 Cash Fernandes MD [address] [place] [address] Gastroenterology 08/23/20 Seven Menchaca MD 40 [place] [address] Insurance Assigned Provider 08/04/22 08/03/23 Chavo Jack MD 40 [place] [address] Insurance Assigned Provider 08/03/23 05/04/24 Willi Wells MD [address] [place] [address] [place] [address] Rheumatology 02/04/24 Jose Thakur MD [address] [place] [address] Weather Analyst Pulmonary Disease 03/17/24 Dana Rucker FNP 15 [facility], 2nd [place] [address] Nurse Practitioner Infectious Diseases 05/21/24 Jonathan Alvarez MD [address] [place] [address], [address] [place] [address] Urology 05/14/23 Anival Borja MD [address] [place] [address], [address] [place] [address] Neurologist Neurology 01/04/23 Lyndsay Reynoso FNP [address] [place] [address] Nurse Practitioner Pain Medicine 05/27/22 Gutierrez Pittman MD 40 [place] [address] Sap Functional Analyst Cardiology 05/27/24 documented as of this encounter Additional Source Comments The information contained in this document represents components of the legal health record. It is not the complete legal health record.[facility]
--- OUTSIDE RECORDS SUMMARY | 2024-12-23 12:15 | XMS_ITS | Encounter Summary ---
Author Organization [facility] Address [address] [place] [address] Phone Care Team Providers Care Founder And Ceo Name Role Phone Patrick Sanchez MD Unavailable [phone] Keren Mabry MD Unavailable [phone] Louisa Hogan MD Unavailable Charly Saxena DO Unavailable [phone] Abhinav Muhammad MD Unavailable [phone] Cheryl Giraldo NP Unavailable Wilfrido Steel MD Unavailable [phone] Sharon MartinC Unavailable Ita Pineda [facility] Primary Care Provider Cash Fernandes MD Unavailable [phone] Seven Menchaca MD Unavailable [phone] Chavo Jack MD Primary Care Provider Keren Poon [facility] Primary Care Provid er Chavo Jack MD Unavailable Willi Wells MD Unavailable Unavailable Jose Thakur MD Unavailable [phone] Dana Rucker DISTRICT ADMINISTRATIVE ASSISTANT Unavailable Jonathan Alvarez MD Unavailable [phone] Anival Borja MD Unavailable [phone] Lyndsay Reynoso DISTRICT ADMINISTRATIVE ASSISTANT Unavailable [phone] Gutierrez Pittman MD Unavailable [phone] Encounter Details Date Type Department Care Team (Late st Contact Info) Description 08/19/2020 Procedure Pass [facility] Endoscopy Admitting Dept Virtual Department [address] [place] [address] Social History Tobacco Use Types Packs/Day Years [...] Description 12/25/2024 2:30 PM EDT Office Visit [facility] Infectious Diseases 22 [place] [address] Dana Rucker FNP [address] [address] 01/01/2025 1:00 PM EDT Office Visit [facility] Rehabilitation Services [address] [place] [address] Dana Rucker FNP [address] [address] Nereyda Wong, PT 380 [place] [address] 01/07/2025 2:30 PM EDT Office Visit [facility] Pulmonary, Allergy and Critical Care Medicine 10 [facility] [place] [address] Jose Thakur MD 30 [place] [address] 01/19/2025 2:30 PM EDT Office Visit [facility] [address] [place] [address] Chaim Dana Leslee, [facility] [address] [address] Nereyda Wong, PT 380 [place] [address] 01/26/2025 2:30 PM EDT Office Visit [facility] [address] [place] [address] Dana Rucker, [facility] [address] [address] Nereyda Wong, PT 380 [place] [address] 01/29/2025 3:00 PM EDT Office Visit [address] [place] [address] Keren Poon, [facility] 170 [facility], [address] [place] [address] 02/01/2025 3:00 PM EDT Office Visit [address] [place] [address] Keren Poon, ORI [address] [address] 03/02/2025 2:30 PM EST Office Visit [facility] [address] [place] [address] Dana Rucker, [facility] [address] [address] Nereyda Wong, PT 380 [place] [address] 03/09/2025 2:30 PM EST Office Visit [facility] [address] [place] [address] Dana Rucker, [facility] [address] [address] Nereyda Wong, PT 380 [place] [address] 03/16/2025 2:30 PM EST Office Visit [facility] [address] [place] [address] Dana Rucker, [address] [address] Nereyda Wong, PT 380 [place] [address] 06/03/2025 2:00 PM EST Office Visit [facility] [address] [place] [address] [place] [address] Keren Poon, ORI [address] [address] [email or web address] documented as of this [...] documented as of this encounter Care Teams Founder And Ceo Relationship Specialty Start Date End Date Ita Pineda CNP 40 [place] [address] [email or web address] PCP - General Internal Medicine 08/19/20 09/17/22 Chavo Jack MD 40 [place] [address] [email or web address] PCP - General Internal Medicine 09/18/22 01/30/23 Keren Poon CNP [address] [place] [address], 2nd [place] [address] [email or web address] PCP - General Family Medicine 01/31/23 Patrick Sanchez MD [address] [place] [address] Department of Orthopedic [place] [address] [email or web address] Historical LMR Provider 09/10/14 Keren Mabry MD 94 [place] [address] Historical LMR Provider 07/10/18 Louisa Hogan MD [address] [place] [address] [email or web address] Historical LMR Provider 07/10/1807/29 Charly Saxena DO 1280 [facility] 301 [place] [address] [email or web address] Historical LMR Provider 07/10/18 08/22/20 Abhinav Muhammad MD [address] [place] [address] 104 [place] [address] [email or web address] Historical LMR Provider 07/10/18 08/22/20 Cheryl Giraldo NP 94 [place] [address] [email or web address] Historical LMR Provider 07/10/18 08/22/20 Wilfrido Steel MD [address] [place] [address] [email or web address] Historical LMR Provider 07/10/18 08/22/20 Sharon Martin PA-C 115 [facility]. 104 [place] [address] [email or web address] Historical LMR Provider 07/10/18 08/22/20 Cash Fernandes MD [address] [address] [email or web address] Gastroenterology 08/23/20 Seven Menchaca MD 40 [place] [address] [email or web address] Insurance Assigned Provider 08/04/22 08/03/23 Chavo Jack MD 40 [place] [address] [email or web address] Insurance Assigned Provider 08/03/23 05/04/24 Willi Wells MD 225 [facility] [place] [address] Rheumatology 02/04/24 Jose Thakur MD [address] [place] [address] [email or web address] Wire Steward Pulmonary Disease 03/17/24 Dana Rucker FNP 15 [facility], 2nd [place] [address] [email or web address] Nurse Practitioner Infectious Diseases 05/21/24 Jonathan Alvarez MD [address] [place] [address], [address] [place] [address] [email or web address] Urology 05/14/23 Anival Borja MD [address] [place] [address], [address] [place] [address] [email or web address] Neurologist Neurology 01/04/23 Lyndsay Reynoso FNP [address] [place] [address] Nurse Practitioner Pain Medicine 05/27/22 Gutierrez Pittman MD [address] [place] [phone] Fashion Consultant Selling Cardiology 05/27/24 documented as of this encounter Additional Source Comments The information contained in this document represents components of the legal health record. It is not the complete legal health record.[facility]
--- OUTSIDE RECORDS SUMMARY | 2024-12-23 12:15 | XMS_ITS | Encounter Summary ---
Author Organization [facility] Address [address] [place] [address] Phone Care Team Providers Care Military Technology Specialist Name Role Phone Jessicaroxanne Ita Mccrackengh [facility] Primary Care Provider Cash Fernandes MD Unavailable [phone] Seven Menchaca MD Unavailable Chavo Jack MD Primary Care Provider Keren Poon [facility] Primary Care Provid er Chavo Jack MD Unavailable Willi Wells MD Unavailable Unavailable Jose Thakur MD Unavailable Dana Rucker INSPECTOR BALANCE BRIDGE Unavailable Jonathan Alvarez MD Unavailable [phone] Anival Borja MD Unavailable [phone] Lyndsay Reynoso INSPECTOR BALANCE BRIDGE Unavailable Gutierrez Pittman MD Unavailable [phone] Encounter Details Date Type Department Care Team (Late st Contact Info) Description 04/09/2022 Procedure Pass [facility], Ct Scan - [facility] 30 [place] [address] Social History Tobacco Use Types Packs/Day Years [...] high school, GED, job training, learning the Salvadorean language, technical skills, or developing parenting skills)? [...] Description 12/25/2024 2:30 PM EDT Office Visit [facility] Infectious Diseases 22 [place] [address] Dana Rucker FNP [address] [address] [email or web address] 01/01/2025 1:00 PM EDT Office Visit [facility] 380 [place] [address] Dana Rucker FNP [address] [address] [email or web address] Nereyda Wong, PT 380 [place] [address] [email or web address] 01/07/2025 2:30 PM EDT Office Visit [facility] Pulmonary, Allergy and Critical Care Medicine 10 [place] [address] Jose Thakur MD 30 [place] [address] 01/19/2025 2:30 PM EDT Office Visit [facility] 380 [place] [address] Dana Rucker, INSPECTOR BALANCE BRIDGE [address] [address] [email or web address] Nereyda Wong, PT [address] [place] [address] 01/26/2025 2:30 PM EDT Office Visit [address] [address] Dana Rucker FNP [address] [address] Nereyda Wong, PT [address] [place] [address] 01/29/2025 3:00 PM EDT Office Visit [address] [place] [address] Keren Poon, CORPORATE INTERN [address] [place] [address] 02/01/2025 3:00 PM EDT Office Visit [address] [place] [address] Keren Poon, CORPORATE INTERN [address] [place] [address] 03/02/2025 2:30 PM EST Office Visit [address] [address] Dana Rucker, [address] [address] Nereyda Wong, PT [address] [place] [address] 03/09/2025 2:30 PM EST Office Visit [facility] 380 [place] [address] Dana Rucker, [facility] [address] [address] Nereyda Wong, PT 380 [place] [address] 03/16/2025 2:30 PM EST Office Visit [facility] Rehabilitation Services [address] [place] [address] Dana Rucker, INSPECTOR BALANCE BRIDGE 15 [facility], 2nd [place] [address] [email or web address] Nereyda Wong, PT [address] [place] [address] 06/03/2025 2:00 PM EST Office Visit [facility] [address] [place] [address] [place] [address] Keren Poon, ORI 170 [facility], 2nd [place] [address] [email or web address] documented as of [...] documented as of this encounter Care Teams Military Technology Specialist Relationship Specialty Start Date End Date Ita Pineda ORI 40 [place] [email or web address] PCP - General Internal Medicine 08/19/20 09/17/22 Chavo Jack MD [address] [place] [address] [email or web address] PCP - General Internal Medicine 09/18/22 01/30/23 Keren Poon CNP [address] [place] [address], 2nd [place] [address] [email or web address] PCP - General Family Medicine 01/31/23 Cash Fernandes MD [address] [place] [address] [email or web address] Gastroenterology 08/23/20 Seven Menchaca MD 40 [place], [place] Insurance Assigned Provider 08/04/22 08/03/23 Chavo Jack MD [address] [place] [address] Insurance Assigned Provider 08/03/23 05/04/24 Willi Wells MD [address] [place] [address] [place] [address] Rheumatology 02/04/24 Jose Thakur MD [address] [place] [id number] Women'S Ministry Director Pulmonary Disease 03/17/24 Dana Rucker FNP 15 [facility], 2nd [place] [address] Nurse Practitioner Infectious Diseases 05/21/24 Jonathan Alvarez MD [address] [place] [address], [address] [place] [address] Urology 05/14/23 Anival Borja MD [address] [place] [address], [address] [place] [address] Neurologist Neurology 01/04/23 Lyndsay Reynoso FNP [address] [place] [address] Nurse Practitioner Pain Medicine 05/27/22 Gutierrez Pittman MD 40 [place] [address] Web Content Editor Cardiology 05/27/24 documented as of this encounter Additional Source Comments The information contained in this document represents components of the legal health record. It is not the complete legal health record.[facility]
--- OUTSIDE RECORDS SUMMARY | 2024-12-23 12:15 | XMS_ITS | Encounter Summary ---
Author Organization [facility] Address [address] [place] [address] Phone Care Team Providers Care Technical Aide Name Role Phone Jessicaroxanne Ita Mccrackengh [facility] Primary Care Provider Cash Fernandes MD Unavailable [phone] Seven Menchaca MD Unavailable Chavo Jack MD Primary Care Provider Keren Poon [facility] Primary Care Provid er Chavo Jack MD Unavailable Willi Wells MD Unavailable Unavailable Jose Thakur MD Unavailable Dana Rucker BOARDMARKER Unavailable [phone] Jonathan Alvarez MD Unavailable [phone] Anival Borja MD Unavailable Lyndsay Reynoso BOARDMARKER Unavailable [phone] Gutierrez Pittman MD Unavailable [phone] Encounter Details Date Type Department Care Team (Late st Contact Info) Description 02/10/2021 Procedure Pass [facility], [facility] [address] [place] [address] Social History Tobacco Use Types Packs/Day Years [...] high school, GED, job training, learning the Moldovan language, technical skills, or developing parenting skills)? [...] EDT Postblayne , Waleska Mock RN * Gorin Suicide Severity Rating Scale (Screener/Recent Self-Report) Question [...] Description 12/25/2024 2:30 PM EDT Office Visit [facility] Infectious Diseases 22 [place] [address] Dana Rucker, [facility] [address] [address] 01/01/2025 1:00 PM EDT Office Visit [facility] Rehabilitation Services [address] [place] [address] Dana Rucker [address] [address] Nereyda Wong, PT 380 [place] [address] 01/07/2025 2:30 PM EDT Office Visit [facility] Pulmonary, Allergy and Critical Care Medicine [address] [place] [address] Jose Thakur MD 30 [place] [address] 01/19/2025 2:30 PM EDT Office Visit [facility] [address] [place] [address] Dana Rucker FNP [address] [address] Nereyda Wong, PT [address] [place] [address] 01/26/2025 2:30 PM EDT Office Visit [facility] [address] [place] [address] Dana Rucker, [address] [address] Nereyda Wong, PT [address] [place] [address] 01/29/2025 3:00 PM EDT Office Visit [address] [place] [address] Keren Poon, LUBRICATION WORKER [address] [place] [address] 02/01/2025 3:00 PM EDT Office Visit [address] [place] [address] Keren Poon, LUBRICATION WORKER [address] [place] [address] 03/02/2025 2:30 PM EST Office Visit [facility] [address] [place] [address] Dana Rucker BOARDMARKER [address] [address] [email or web address] Nereyda Wong, PT [address] [place] [address] [email or web address] 03/09/2025 2:30 PM EST Office Visit [facility] [address] [place] [address] Dana Ruckerley, [facility] [address] [address] [email or web address] Nereyda Wong, PT [address] [place] [address] [email or web address] 03/16/2025 2:30 PM EST Office Visit [facility] [address] [place] [address] Dana Ruckerley, [facility] [address] [address] [email or web address] Nereyda Wong, PT [address] [place] [address] [email or web address] 06/03/2025 2:00 PM EST Office Visit [facility] [address] [place] [address] [place] [address] Keren Poon, LUBRICATION WORKER [address] [place] [address] documented as of this encounter Visit Diagnoses [...] documented as of this encounter Care Teams Technical Aide Relationship Specialty Start Date End Date Ita Pineda CNP 40 [place] [address] [email or web address] PCP - General Internal Medicine 08/19/20 09/17/22 Chavo Jack MD [address] [place] [address] PCP - General Internal Medicine 09/18/22 01/30/23 Keren Poon CNP [address] [place] [address], 2nd [place] [address] PCP - General Family Medicine 01/31/23 Cash Fernandes MD [address] [place] [address] Gastroenterology 08/23/20 Seven Menchaca MD 40 [place] [address] [email or web address] Insurance Assigned Provider 08/04/22 08/03/23 Chavo Jack MD 40 [place] [address] Insurance Assigned Provider 08/03/23 05/04/24 Willi Wells MD [address] [place] [address] Rheumatology 02/04/24 Jose Thakur MD [address] [place] [address] [email or web address] Insulation Board Calender Operator Pulmonary Disease 03/17/24 Dana Rucker FNP [address] [place] [address], 2nd [place] [address] [email or web address] Nurse Practitioner Infectious Diseases 05/21/24 Jonathan Alvarez MD [address] [place] [address], [address] [place] [address] Urology 05/14/23 Anival Borja MD [address] [place] [address], [address] [place] [address] Neurologist Neurology 01/04/23 Lyndsay Reynoso FNP [address] [place] [address] Nurse Practitioner Pain Medicine 05/27/22 Gutierrez Pittman MD 40 [place] [address] Traffic Control Supervisor Cardiology 05/27/24 documented as of this encounter Additional Source Comments The information contained in this document represents components of the legal health record. It is not the complete legal health record.[facility]
--- OUTSIDE RECORDS SUMMARY | 2024-12-23 12:15 | XMS_ITS | Encounter Summary ---
Author Organization [facility] Address [address] [place] [address] Care Team Providers Care Side Door Worker Name Role Phone Cheryl Calderon MD Primary Care Provider [phone] Encounter Details Date Type Department Care Team (Late st Contact Info) Description 09/30/2018 Orders Only [facility]. Rheumatology [address] [place] [phone] Melanie Aguirre MD Social History Tobacco Use [...] involving multiple sites with positive rheumatoid factor SM/HAT STEAMER ANTIBODY Routine 09/30/2018 11:38 AM EDT Rheumatoid arthritis involving multiple sites with positive rheumatoid factor HAT STEAMER ANTIBODY Routine 09/30/2018 11:38 AM EDT Rheumatoid [...] 9:04 PM EDT Narrative Resulting Agency Comment [id number] us Melanie Aguirre MD LABORATORY Final Result Performing Organization Address City/[facility]/ZIP Co de Phone Number [facility] [address] [place] [address] * (ABNORMAL) SJOGRENS SYNDROME ANTIBODIES (SSA AND SSB) (09/30/2018 11:38 AM EDT) Sjogrens syndrome-A extractable nuclear Ab 4.1 POS(A) <1.0 NEG AI [facility] Sjogrens syndrome-B extractable nuclear Ab <1.0 NEG <1.0 NEG AI [facility] 09/30/2018 11:3 8 AM EDT 09/30/2018 9:04 PM EDT Narrative Resulting Agency Comment [id number] us Melanie Aguirre MD LABORATORY Final Result Performing Organization Address [facility] Co de Phone Number [facility] [address] [place] [address] * (ABNORMAL) ERYTHROCYTE SEDIMENTATION RATE (ESR), WESTERGREN (09/30/2018 11:38 AM EDT) Sedimentation Rate Westegren (ESR) 45(H) < OR = 30 mm/h [facility] 09/30/2018 11:3 8 AM EDT 09/30/2018 9:04 PM EDT Narrative Resulting Agency Comment [id number] us Melanie Aguirre MD LAB SAME DAY RESULT Final Result Performing Organization Address City/[facility] Co de Phone Number [facility] [address] [place] [address] * HAT STEAMER ANTIBODY (09/30/2018 11:38 AM EDT) Ribonucleoprotein extractable nuclear Ab <1.0 NEG <1.0 NEG AI [facility] 09/30/2018 11:3 8 AM EDT 09/30/2018 9:04 PM EDT Narrative Resulting Agency Comment [id number] us Melanie Aguirre MD LABORATORY Final Result [facility] [address] [place] [address] * QUANTIFERON-TB GOLD (09/30/2018 11:38 AM EDT) [...] T-lymphocytes. For additional information, please refer to https://education.[employer]al[employer]/faq/DXA005 (This link is being provided for informational/ educational purposes only.) 09/30/2018 11:3 8 AM EDT 09/30/2018 9:04 PM EDT Narrative Resulting Agency Comment [id number] us Melanie Aguirre MD LABORATORY Final Result [facility] [address] [place] [address] * HEPATITIS C AB WITH REFLEX TO RNA PCR, SERUM (09/30/2018 11:38 AM EDT) Hepatitis C virus Ab NON-REACT MANOLO NON-REACT MANOLO [facility] Hepatitis C virus Ab Signal/Cutoff 0.01 <1.00 [facility] Comment: HCV antibody was non-reactive. There is no laboratory evidence of HCV infection. In most cases, no further action is required. However, if recent HCV exposure is suspected, a test for HCV RNA (test code 30265) is suggested. For additional information please refer to http://education.Intalio/faq/KGV03d1 (This link is being provided for informational/ educational purposes only.) 09/30/2018 11:3 8 AM EDT 09/30/2018 9:04 PM EDT Narrative Resulting Agency Comment [id number] us Melanie Aguirre MD LABORATORY Final Result Performing Organization Address [facility] Co de Phone Number [facility] [address] [place] [phone] * HEPATITIS B SURFACE ANTIGEN (09/30/2018 11:38 AM EDT) Hepatitis B virus surface Ag NON-REACTI VE NON-REACT MANOLO [facility] 09/30/2018 11:3 8 AM EDT 09/30/2018 9:04 PM EDT Narrative Resulting Agency Comment [id number] us Melanie Aguirre MD LABORATORY Final Result Performing Organization Address [facility] de Phone Number [facility] [address] [place] [address] * (ABNORMAL) C-REACTIVE PROTEIN (CRP) - INFLAMMATION (09/30/2018 11:38 AM EDT) C reactive protein 10.9(H) <8.0 mg/L [facility] 09/30/2018 11:3 8 AM EDT 09/30/2018 9:04 PM EDT Narrative Resulting Agency Comment [id number] us Melanie Aguirre MD LABORATORY Final Result Performing Organization Address [facility] Co de Phone Number [facility] [address] [place] [address] * (ABNORMAL) COMPREHENSIVE METABOLIC PANEL WITH GFR [...] approximately 13% higher for people identified as -Mozambican. EGFR 77 > OR = 60 mL/min/1 [...] needs for GFR calculation. Resulting Agency Comment [id number] us Melanie Aguirre MD LABORATORY Final Result Performing Organization Address City/[facility]/ZIP Co de Phone Number [facility] [address] [place] [address] * (ABNORMAL) CYCLIC CITRULLINATEDPEPTIDE CCP AB IGG (09/30/2018 11:38 AM EDT) Pathologist [facility] CCP Ab, IgG 45(H) UNITS [facility] Comment: Reference Range Negative: <20 Weak Positive: 20-39 Moderate Positive: 40-59 Strong Positive: >59 09/30/2018 11:3 8 AM EDT 09/30/2018 9:04 PM EDT Narrative Resulting Agency Comment [id number] us Melanie Aguirre MD LABORATORY Final Result Performing Organization Address [facility] de Phone Number [facility] [address] [place] [address] * (ABNORMAL) CBC INCLUDES DIFFERENTIAL AND PLATELET COUNT (09/30/2018 11:38 AM EDT) Pathologist [facility] WBC 7.4 3.8 - 10.8 Thousand/u L [...] 9:04 PM EDT Narrative Resulting Agency Comment [id number] us Melanie Aguirre MD LAB SAME DAY RESULT Final Result Performing Organization Address [facility] Co de Phone Number [facility] [address] [place] [address] * SM/HAT STEAMER ANTIBODY (09/30/2018 11:38 AM EDT) Arevalo extractable nuclear Ab+Ribonucleopr otein extractable nuclear Ab <1.0 NEG <1.0 NEG AI [facility] 09/30/2018 11:3 8 AM EDT 09/30/2018 9:04 PM EDT Narrative Resulting Agency Comment [id number] us Melanie Aguirre MD LABORATORY Final Result Performing Organization Address [facility] de Phone Number [facility] [address] [place] [address] * DNA (DS) ANTIBODY (09/30/2018 11:38 AM EDT) Dna (DS) Antibody <1 IU/mL [facility] Comment: IU/mL Interpretation < or = 4 Negative 5-9 Indeterminate > or = 10 Positive 09/30/2018 11:3 8 AM EDT 09/30/2018 9:04 PM EDT Narrative Resulting Agency Comment [id number] us Melanie Aguirre MD LABORATORY Final Result Performing Organization Address [facility] de Phone Number [facility] [address] [place] [address] * PASTORA IFA, W/ REFLEX TO TITER/PATTERN/COMPREHENSIVE [...] for interpretation of all antibodies in the [place], prevalence, and association with diseases at http://education.[employer]/ faq/JVF651 09/30/2018 11:3 8 AM EDT 09/30/2018 9:04 PM EDT Narrative Resulting Agency Comment [id number] Melanie Aguirre MD LABORATORY Final Result [facility] [address] [place] [address] documented in this encounter Visit Diagnoses Diagnosis Rheumatoid arthritis involving multiple sites with positive rheumatoid factor (HCC) documented in this encounter Care Teams Side Door Worker Relationship Specialty Start Date End Date Cheryl Calderon MD [facility] Adult Medicine [address] [place] [address] PCP - General Internal Medicine 07/17/17 documented as of this encounter
--- OUTSIDE RECORDS SUMMARY | 2024-12-23 12:15 | XMS_ITS | Encounter Summary ---
Author Organization [facility] Address [address] [place] [address] Phone Care Team Providers Care Putty Glazer Name Role Phone Jessicaroxanne Ita Mccrackengh [facility] Primary Care Provider Cash Fernandes MD Unavailable [phone] Seven Menchaca MD Unavailable [phone] Chavo Jack MD Primary Care Provider Keren Poon [facility] Primary Care Provid er Chavo Jack MD Unavailable Willi Wells MD Unavailable Unavailable Jose Thakur MD Unavailable [phone] Dana Rucker ASSOCIATE DIRECTOR Unavailable Jonathan Alvarez MD Unavailable [phone] Anival Borja MD Unavailable [phone] Lyndsay Reynoso ASSOCIATE DIRECTOR Unavailable Gutierrez Pittman MD Unavailable [phone] Encounter Details Date Type Department Care Team (Late st Contact Info) Description 02/21/2022 Procedure Pass [facility] Endoscopy Admitting Dept Virtual Department [address] [place] [address] Social History Tobacco Use Types Packs/Day Years [...] [facility] Infectious Diseases [address] [place] [address] Dana Rucker FNP [address] [address] 01/01/2025 1:00 PM EDT Office Visit [address] [address] Dana Rucker FNP [address] [address] Nereyda Wong, PT [address] [place] [address] 01/07/2025 2:30 PM EDT Office Visit [facility] Pulmonary, Allergy and Critical Care Medicine 10 [place] [address] Jose Thakur MD 30 [place] [address] 01/19/2025 2:30 PM EDT Office Visit [address] [address] Dana Rucker, ASSOCIATE DIRECTOR [address] [address] Nereyda Wong, PT [address] [place] [address] 01/26/2025 2:30 PM EDT Office Visit [address] [address] Dnaa Rucker FNP [address] [address] Nereyda Wong, PT [address] [place] [address] 01/29/2025 3:00 PM EDT Office Visit [address] [place] [address] Keren Poon, STARCH COOKER [address] [place] [address] 02/01/2025 3:00 PM EDT Office Visit [address] [place] [address] Keren Poon, STARCH COOKER [address] [place] [address] 03/02/2025 2:30 PM EST Office Visit [address] [address] Dana Rucker, [address] [address] Nereyda Wong, PT [address] [place] [address] 03/09/2025 2:30 PM EST Office Visit [address] [address] aDna Rucker, [address] [address] Nereyda Wong, PT [address] [place] [address] 03/16/2025 2:30 PM EST Office Visit [facility] Rehabilitation Services [address] [place] [address] Dana Rucker, ASSOCIATE DIRECTOR 15 [facility], 2nd [place] [address] [email or web address] Nereyda Wong, PT [address] [place] [address] 06/03/2025 2:00 PM EST Office Visit [facility] [address] [place] [address] [place] [address] Keren Poon, STARCH COOKER [address] [facility], 2nd [place] [address] [email or web address] documented [...] documented as of this encounter Care Teams Putty Glazer Relationship Specialty Start Date End Date Ita PinedaORI [address] [place], [place] [email or web address] PCP - General Internal Medicine 08/19/20 09/17/22 Chavo Jack MD [address] [place], [place] PCP - General Internal Medicine 09/18/22 01/30/23 Keren Poon CNP [address] [place] [address], 2nd [place] [address] [email or web address] PCP - General Family Medicine 01/31/23 Cash Fernandes MD [address] [place] [address] [email or web address] Gastroenterology 08/23/20 Seven Menchaca MD [address] [place] [address] Insurance Assigned Provider 08/04/22 08/03/23 Chavo Jack MD [address] [place] [address] Insurance Assigned Provider 08/03/23 05/04/24 Willi Wells MD [address] [place] [address] [place] [address] Rheumatology 02/04/24 Jose Thakur MD [address] [place] [address] Life Insurance Agent Pulmonary Disease 03/17/24 Dana Rucker FNP 15 [facility], 2nd [place] [address] Nurse Practitioner Infectious Diseases 05/21/24 Jonathan Alvarez MD [address] [place] [address], [address] [place] [address] Urology 05/14/23 Anival Borja MD [address] [place] [address], [address] [place] [address] Neurologist Neurology 01/04/23 Lyndsay Reynoso FNP [address] [place] [address] Nurse Practitioner Pain Medicine 05/27/22 Gutierrez Pittman MD [address] [place] [address] Grain Elevator Motor Starter Cardiology 05/27/24 documented as of this encounter Additional Source Comments The information contained in this document represents components of the legal health record. It is not the complete legal health record.[facility]
--- OUTSIDE RECORDS SUMMARY | 2024-12-23 12:15 | XMS_ITS | Encounter Summary ---
Author Organization [facility] Address [address] [place] [address] Care Team Providers Care High Rigger Name Role Phone Cheryl Calderon MD Primary Care Provider [phone] Encounter Details Date Type Department Care Team (Late st Contact Info) Description 01/27/2019 Orders Only [facility] Hematology/Oncology 1 [facility] [address] [place] [phone] Liliana Calderon, JULI [address] [place] [address] Social History Tobacco Use Types Packs/Day Years [...] 1:19 AM EDT Narrative Resulting Agency Comment [id number] Liliana Calderon NP LAB SAME DAY RESULT Final Result Performing Organization Address [facility] Co de Phone Number [facility] [address] [place] [address] * (ABNORMAL) FERRITIN (01/27/2019 3:23 PM EDT) Ferritin 687(H) 16 - 288 ng/mL [facility] 01/27/2019 3:23 PM EDT 01/28/2019 1:19 AM EDT Narrative Resulting Agency Comment [id number] Liliana Erazo DIRECTOR OF FINANCIAL REPORTING LABORATORY Final Result Performing Organization Address [facility] Co de Phone Number [facility] [address] [place] [address] * (ABNORMAL) IRON PROFILE (IRON/TIBC), SERUM (01/27/2019 3:23 PM EDT) Iron 14(L) 45 - 160 mcg/dL [facility] Iron binding capacity 223(L) 250 - 450 mcg/dL (calc) [facility] Iron saturation 6(L) 16 - 45 % (calc) [facility] 01/27/2019 3:23 PM EDT 01/28/2019 1:19 AM EDT Narrative Resulting Agency Comment [id number] Liliana Calderon DIRECTOR OF FINANCIAL REPORTING LABORATORY Final Result [facility] [address] [place] [address] documented in this encounter Visit Diagnoses Diagnosis Iron deficiency Iron deficiency anemia, unspecified Leukopenia, unspecified type Rheumatoid arthritis involving multiple sites with positive rheumatoid factor (HCC) documented in this encounter Care Teams High Rigger Relationship Specialty Start Date End Date Cheryl Calderon MD [facility] Adult Medicine [address] [place] [address] PCP - General Internal Medicine 07/17/17 documented as of this encounter
--- OUTSIDE RECORDS SUMMARY | 2024-12-23 12:15 | XMS_ITS | Encounter Summary ---
Author Organization [facility] Address [address] [place] [address] Phone Care Team Providers Care Photography Coordinator Name Role Phone Jessicaroxanne Ita Mccrackengh [facility] Primary Care Provider Cash Fernandes MD Unavailable [phone] Seven Menchaca MD Unavailable [phone] Chavo Jack MD Primary Care Provider Keren Poon [facility] Primary Care Provid er Chavo Jack MD Unavailable Willi Wells MD Unavailable Unavailable Jose Thakur MD Unavailable Dana Rucker BEEF TRIMMER Unavailable Jonathan Alvarez MD Unavailable [phone] Anival Borja MD Unavailable Lyndsay Reynoso BEEF TRIMMER Unavailable [phone] Gutierrez Pittman MD Unavailable [phone] Encounter Details Date Type Department Care Team (Late st Contact Info) Description 04/10/2021 Procedure Pass [facility] Endoscopy Admitting Dept Virtual Department 30 [place] [address] Social History Tobacco Use Types Packs/Day Years [...] high school, GED, job training, learning the Icelandic language, technical skills, or developing parenting skills)? [...] Description 12/25/2024 2:30 PM EDT Office Visit [facility] Infectious Diseases 22 [place] [address] Dana Rucker, DIVYA [address] [address] [email or web address] 01/01/2025 1:00 PM EDT Office Visit [address] [address] Dana Rucker FNP [address] [address] [email or web address] Nereyda Wong, PT [address] [place] [address] [email or web address] 01/07/2025 2:30 PM EDT Office Visit [facility] Pulmonary, Allergy and Critical Care Medicine 10 [place] [address] Jose Thakur MD 30 [place] [address] 01/19/2025 2:30 PM EDT Office Visit [address] [address] Dana Rucker, BEEF TRIMMER [address] [address] [email or web address] Nereyda Wong, PT 380 [place] [address] 01/26/2025 2:30 PM EDT Office Visit [address] [address] [place], Dana Leslee, [address] [address] Nereyda Wong, PT [address] [place] [address] 01/29/2025 3:00 PM EDT Office Visit [address] [place] [address] Keren Poon, DISTRICT COURT BAILIFF [address] [place] [address] 02/01/2025 3:00 PM EDT Office Visit [address] [place] [address] Keren Poon, DISTRICT COURT BAILIFF [address] [place] [address] 03/02/2025 2:30 PM EST Office Visit [address] [address] Dana Rucker, [address] [address] Nereyda Wong, PT [address] [place] [address] 03/09/2025 2:30 PM EST Office Visit [address] [address] Dana Rucker, [address] [address] Nereyda Wong, PT [address] [place] [address] 03/16/2025 2:30 PM EST Office Visit [facility] Rehabilitation Services 380 [place] [address] Dana Rucker, BEEF TRIMMER [facility], 2nd [place] [address] Nereyda Wong, PT 380 [place] [address] 06/03/2025 2:00 PM EST Office Visit [facility] [address] [place] [address] Keren Poon, ORI [address] [facility], 2nd [place] [address] documented as of this encounter Visit Diagnoses [...] documented as of this encounter Care Teams Photography Coordinator Relationship Specialty Start Date End Date JessicaIta oliveiraORI 40 [place] [address] [email or web address] PCP - General Internal Medicine 08/19/20 09/17/22 Chavo Jack MD 40 [place] [address] [email or web address] PCP - General Internal Medicine 09/18/22 01/30/23 Keren Poon CNP [address] [place] [address], 2nd [place] [address] [email or web address] PCP - General Family Medicine 01/31/23 Cash Fernandes MD [address] [place] [address] [email or web address] Gastroenterology 08/23/20 Seven Menchaca MD 40 [place] [address] Insurance Assigned Provider 08/04/22 08/03/23 Chavo Jack MD 40 [place] [address] Insurance Assigned Provider 08/03/23 05/04/24 Willi Wells MD [address] [place] [address] Internal [facility] BRAYDEN Mock [address] Rheumatology 02/04/24 Jose Thakur MD 30 [place] [address] Retail Branch Manager Pulmonary Disease 03/17/24 Dana Rucker FNP 15 [facility], 2nd [place] [address] Nurse Practitioner Infectious Diseases 05/21/24 Jonathan Alvarez MD [address] [place] [address], [address] [place] [address] Urology 05/14/23 Anival Borja MD [address] [place] [address], [address] [place] [address] Neurologist Neurology 01/04/23 Lyndsay Reynoso FNP [address] [place] [address] Nurse Practitioner Pain Medicine 05/27/22 Gutierrez Pittman MD 40 [place] [address] Solution Lead Cardiology 05/27/24 documented as of this encounter Additional Source Comments The information contained in this document represents components of the legal health record. It is not the complete legal health record.[facility]
--- OUTSIDE RECORDS SUMMARY | 2024-12-23 12:15 | XMS_ITS | Encounter Summary ---
Author Organization [facility] Address [address] [place] [address] Phone Care Team Providers Care Doughnut Machine Operator Helper Name Role Phone Jessicaroxanne Ita Mccrackengh [facility] Primary Care Provider Cash Fernandes MD Unavailable [phone] Seven Menchaca MD Unavailable [phone] Chavo Jack MD Primary Care Provider [phone] Keren Poon [facility] Primary Care Provid er Chavo Jack MD Unavailable Willi Wells MD Unavailable Unavailable Jose Thakur MD Unavailable [phone] Dana Rucker DIRECTOR PHYSICAL THERAPY Unavailable [phone] Jonathan Alvarez MD Unavailable [phone] Anival Borja MD Unavailable [phone] Lyndsay Reynoso DIRECTOR PHYSICAL THERAPY Unavailable Gutierrez Pittman MD Unavailable [phone] Encounter Details Date Type Department Care Team (Late st Contact Info) Description 02/10/2021 Procedure Pass [facility], Ct Scan - [address] [address] Social History Tobacco Use Types Packs/Day Years [...] high school, GED, job training, learning the Ivorian language, technical skills, or developing parenting skills)? [...] housing situation today? I have oj sing 09/26/2020 How many times have you [...] EDT Postblayne , Waleska Mock RN * [place] Suicide Severity Rating Scale (Screener/Recent Self-Report) Question [...] Description 12/25/2024 2:30 PM EDT Office Visit [facility] Infectious Diseases 22 [place] [address] Dana Rucker, [facility] [address] [address] 01/01/2025 1:00 PM EDT Office Visit [facility] Rehabilitation Services 380 [place] [address] Dana Rucker [address] [address] Nereyda Wong, PT 380 [place] [address] 01/07/2025 2:30 PM EDT Office Visit [facility] Pulmonary, Allergy and Critical Care Medicine 10 [place] [address] Jose Thakur MD 30 [place] [address] 01/19/2025 2:30 PM EDT [facility] [address] [place] [address] Dana Rucker FNP [address] [address] Nereyda Wong, PT 380 [place] [address] 01/26/2025 2:30 PM EDT [facility] 380 [place] [address] Dana Rucker, [address] [address] Nereyda Wong, PT 380 [place] [address] 01/29/2025 3:00 PM EDT Office Visit [address] [place] [address] Keren Poon, HEADWAITRESS [address] [place] [address] 02/01/2025 3:00 PM EDT Office Visit [address] [place] [address] Keren Poon, HEADWAITRESS [address] [place] [address] 03/02/2025 2:30 PM EST [facility] 380 [place] [address] Dana Rucker DIRECTOR PHYSICAL THERAPY [address] [address] [email or web address] Nereyda Wong, PT 380 [place] [address] [email or web address] 03/09/2025 2:30 PM EST [facility] [address] [place] [address] Dana Ruckerley, [facility] [address] [address] [email or web address] Nereyda Wong, PT 380 [place] [address] [email or web address] 03/16/2025 2:30 PM EST Office Visit [address] [address] Dana Ruckerley, [facility] [address] [address] [email or web address] Nereyda Wong, PT [address] [place] [address] [email or web address] 06/03/2025 2:00 PM EST Office Visit [facility] [address] [place] [address] [place] [address] Keren Poon, HEADWAITRESS [address] [place] [address] documented as of this encounter Visit Diagnoses [...] documented as of this encounter Care Teams Doughnut Machine Operator Helper Relationship Specialty Start Date End Date Ita Pineda CNP 40 [place] [address] PCP - General Internal Medicine 08/19/20 09/17/22 Chavo Jack MD 40 [place] [address] PCP - General Internal Medicine 09/18/22 01/30/23 Keren Poon CNP [address] [place] [address], 2nd [place] [address] PCP - General Family Medicine 01/31/23 Cash Fernandes MD [address] [place] [address] Gastroenterology 08/23/20 Seven Menchaca MD 40 [place] [address] [email or web address] Insurance Assigned Provider 08/04/22 08/03/23 Chavo Jack MD 40 [place] [address] Insurance Assigned Provider 08/03/23 05/04/24 Willi Wells MD [address] [place] [address] Rheumatology 02/04/24 Jose Thakur MD [address] [place] [address] Watch Inspector Final Movement Pulmonary Disease 03/17/24 Dana Rucker FNP 15 [facility], 2nd [place] [address] [email or web address] Nurse Practitioner Infectious Diseases 05/21/24 Jonathan Alvarez MD [address] [place] [address], [address] [place] [address] Urology 05/14/23 Anival Borja MD [address] [place] [address], [address] [place] [address] Neurologist Neurology 01/04/23 Lyndsay Reynoso FNP [address] [place] [address] Nurse Practitioner Pain Medicine 05/27/22 Gutierrez Pittman MD 40 [place] [address] Active Directory Systems Administrator Cardiology 05/27/24 documented as of this encounter Additional Source Comments The information contained in this document represents components of the legal health record. It is not the complete legal health record.[facility]
--- OUTSIDE RECORDS SUMMARY | 2024-12-23 12:15 | XMS_ITS | Encounter Summary ---
Author Organization [facility] Address [address] [place] [address] Care Team Providers Care Production Hardener Name Role Phone Cheryl Calderon MD Primary Care Provider [phone] Encounter Details Date Type Department Care Team (Late st Contact Info) Description 11/18/2018 Orders Only [facility] Hematology/Oncology 1 [facility] [address] [place] [phone] Liliana Calderon, JULI 5 [place] [address] Social History Tobacco Use Types Packs/Day Years [...] 12:14 AM EDT Narrative Resulting Agency Comment [id number] Liliana Calderon NP LABORATORY Final Result Performing Organization Address [facility] Co de Phone Number [facility] [address] [place] [address] * (ABNORMAL) FERRITIN (11/18/2018 3:38 PM EDT) Ferritin 634(H) 16 - 288 ng/mL [facility] 11/18/2018 3:38 PM EDT 11/19/2018 12:14 AM EDT Narrative Resulting Agency Comment [id number] Liliana Calderon NP LABORATORY Final Result Performing Organization Address City[facility] Co de Phone Number [facility] [address] [place] [address] * LACTATE DEHYDROGENASE (LDH), SERUM (11/18/2018 3:38 PM EDT) Lactate dehydrogenase 156 120 - 250 U/L [facility] 11/18/2018 3:38 PM EDT 11/19/2018 12:14 AM EDT Narrative Resulting Agency Comment [id number] Liliana Calderon NP LABORATORY Final Result Performing Organization Address City/[facility]/ZIP Co de Phone Number [facility] [address] [place] [address] * (ABNORMAL) CBC INCLUDES DIFFERENTIAL AND PLATELET [...] 12:14 AM EDT Narrative Resulting Agency Comment [id number] Liliana Calderon HOURLY CAREGIVER LAB SAME DAY RESULT Final Result [facility] [address] [place] [address] documented in this encounter Visit Diagnoses Diagnosis Leukopenia, unspecified type Iron deficiency Iron deficiency anemia, unspecified documented in this encounter Care Teams Production Hardener Relationship Specialty Start Date End Date Cheryl Calderon MD [facility] Adult Medicine [address] [place] [address] PCP - General Internal Medicine 07/17/17 documented as of this encounter
--- OUTSIDE RECORDS SUMMARY | 2024-12-23 12:15 | XMS_ITS | Encounter Summary ---
Author Organization [facility] Address [address] [place] [address] Phone Care Team Providers Care Motor Vehicle Escort Driver Name Role Phone Jessicaroxanne Ita Mccrackengh [facility] Primary Care Provider Cash Fernandes MD Unavailable [phone] Seven Menchaca MD Unavailable Chavo Jack MD Primary Care Provider Keren Poon [facility] Primary Care Provid er Chavo Jack MD Unavailable Willi Wells MD Unavailable Unavailable Jose Thakur MD Unavailable Dana Rucker RESIDENCE LIFE DIRECTOR Unavailable Jonathan Alvarez MD Unavailable [phone] Anival Borja MD Unavailable Lyndsay Reynoso RESIDENCE LIFE DIRECTOR Unavailable Gutierrez Pittman MD Unavailable [phone] Encounter Details Date Type Department Care Team (Late st Contact Info) Description 02/10/2021 Procedure Pass [facility], Ct Scan - [address] [address] Social History Tobacco Use Types Packs/Day Years [...] 02/10/2021 1:41 PM EDT Postblayne , Waleska Mcok RN * [place] Suicide Severity Rating Scale (Screener/Recent Self-Report) Question [...] Description 12/25/2024 2:30 PM EDT Office Visit [facility] Infectious Diseases 22 [place] [address] Dana Rucker, [facility] [address] [address] 01/01/2025 1:00 PM EDT Office Visit [facility] Rehabilitation Services [address] [place] [address] Dana Rucker [address] [address] Nereyda Wong, PT 380 [place] [address] 01/07/2025 2:30 PM EDT Office Visit [facility] Pulmonary, Allergy and Critical Care Medicine 10 [place] [address] oJse Thakur MD 30 [place] [address] 01/19/2025 2:30 PM EDT Office Visit [facility] [address] [place] [address] Dana Rucker FNP [address] [address] Nereyda Wong, PT 380 [place] [address] 01/26/2025 2:30 PM EDT Office Visit [facility] [address] [place] [address] Dana Rucker, [address] [address] Nereyda Wong, PT [address] [place] [address] 01/29/2025 3:00 PM EDT Office Visit [address] [place] [address] Keren Poon, BUILDINGS AND GROUNDS COORDINATOR [address] [place] [address] 02/01/2025 3:00 PM EDT Office Visit [address] [place] [address] Keren Poon, BUILDINGS AND GROUNDS COORDINATOR [address] [place] [address] 03/02/2025 2:30 PM EST Office Visit [facility] [address] [place] [address] Dana Rucker RESIDENCE LIFE DIRECTOR [address] [address] [email or web address] Nereyda Wong, PT [address] [place] [address] [email or web address] 03/09/2025 2:30 PM EST Office Visit [facility] [address] [place] [address] Dana Ruckerley, [facility] [address] [address] [email or web address] Nereyda Wong, PT [address] [place] [address] [email or web address] 03/16/2025 2:30 PM EST Office Visit [address] [address] Dana Ruckerley, [facility] [address] [address] [email or web address] Nereyda Wong, PT [address] [place] [address] [email or web address] 06/03/2025 2:00 PM EST Office Visit [facility] [address] [place] [address] [place] [address] Keren Poon, BUILDINGS AND GROUNDS COORDINATOR [address] [place] [address] documented as of this encounter Visit Diagnoses [...] documented as of this encounter Care Teams Motor Vehicle Escort Driver Relationship Specialty Start Date End Date Ita Pineda CNP 40 [place] [address] PCP - General Internal Medicine 08/19/20 09/17/22 Chavo Jack MD 40 [place] [address] PCP - General Internal Medicine 09/18/22 01/30/23 Keren Poon CNP [address] [place] [address], 2nd [place] [address] PCP - General Family Medicine 01/31/23 Cash Fernandes MD [address] [place] [address] Gastroenterology 08/23/20 Seven Menchaca MD [address] [place] [address] [email or web address] Insurance Assigned Provider 08/04/22 08/03/23 Chavo Jack MD 40 [place] [address] Insurance Assigned Provider 08/03/23 05/04/24 Willi Wells MD [address] [place] [address] Rheumatology 02/04/24 Jose Thakur MD [address] [place] [address] Test Operator Pulmonary Disease 03/17/24 Dana Rucker FNP 15 [facility], 2nd [place] [address] [email or web address] Nurse Practitioner Infectious Diseases 05/21/24 Jonathan Alvarez MD [address] [place] [address], [address] [place] [address] Urology 05/14/23 Anival Borja MD [address] [place] [address], [address] [place] [address] Neurologist Neurology 01/04/23 Lyndsay Reynoso FNP [address] [place] [address] Nurse Practitioner Pain Medicine 05/27/22 Gutierrez Pittman MD 40 [place] [address] Etl Developer Cardiology 05/27/24 documented as of this encounter Additional Source Comments The information contained in this document represents components of the legal health record. It is not the complete legal health record.[facility]
--- OUTSIDE RECORDS SUMMARY | 2024-12-23 12:15 | XMS_ITS | Encounter Summary ---
Author Organization [facility] Address [address] [place] [address] Care Team Providers Care Real Estate Administrative Assistant Name Role Phone Cheryl Calderon MD Primary Care Provider [phone] Reason for Visit * Reason Comments Appointment Encounter Details Date Type Department Care Team ([facility] st Contact Info) Description 01/12/2019 Telephone [facility] Hematology/Oncology 1 [facility] [address] [place] [phone] Ita Anne RN [address] [place] [address] Appointment Social History Tobacco Use Types Packs/Day [...] 3:10 PM Lyndsay Lopez MD [facility]. Ophthalmology [phone] 01/26/19 9:30 AM EAP CHEMO TX HEM ONC [facility] Hematology/Oncology [phone] 01/30/19 2:40 PM Liliana Calderon NP [facility] Hematology/Oncology [phone] Patient's is aware of the appointment. * Telephone Encounter - Liliana Calderon NP - 01/14/2019 5:28 PM EDT To schedule a follow-up visit for this patient within the week of Rituxan infusion. Thanks! * Telephone Encounter - Apple Bridges - 01/12/2019 4:44 PM EDT Liliana is not in the office on 01/26/19, she is in [place]. * Telephone Encounter - Ita Anne - [...] on filedocumented in this encounter Care Teams Real Estate Administrative Assistant Relationship Specialty Start Date End Date Cheryl Calderon MD [facility] [address] [place] [address] PCP - General Internal Medicine 07/17/17 documented as of this encounter
--- OUTSIDE RECORDS SUMMARY | 2024-12-23 12:16 | XMS_ITS | Encounter Summary ---
Author Organization [facility] Address [address] [place] [address] Care Team Providers Care Forestry Worker Name Role Phone Charly Saxena Primary Care Provider [phone] Cheryl Calderon MD Primary Care Provider [phone] Encounter Details Date Type Department Care Team (Late st Contact Info) Description 04/18/2017 Orders Only [facility] Rheumatology [address] [place] [address] Abel Fierro MD 5 [place] [address] Social History Tobacco Use Types Packs/Day Years [...] 5:02 PM EST Narrative Resulting Agency Comment [id number] us Abel Fierro MD LABORATORY Final Result [facility] [address] [place] [address] * ERYTHROCYTE SEDIMENTATION RATE (ESR), JOSEERGREN (04/18/2017 12:15 PM EST) Sedimentation Rate [place] (ESR) 9 < OR = 30 mm/h [facility] 04/18/2017 12:1 5 PM EST 04/18/2017 5:02 PM EST Narrative Resulting Agency Comment [id number] us Abel Fierro MD LAB SAME DAY RESULT Final Resul t Performing Organization Address City/[facility]/ZIP Co de Phone Number [facility] [address] [place] [address] * CREATININE WITH GLOMERULAR FILTRATION RATE, ESTIMATED (EGFR) (04/18/2017 12:15 PM EST) Creatinine 0.88 0.50 - 0.99 mg/dL [facility] Comment: For patients >49 years of age, the reference limit for Creatinine is approximately 13% higher for people identified as -Ghanaian. GFR 70 > OR = 60 mL/min/1. [...] needs for GFR calculation. Resulting Agency Comment [id number] us Abel Fierro MD LAB SAME DAY RESULT Final Resul t Performing Organization Address [facility] Co de Phone Number [facility] [address] [place] [address] * ALANINE AMINOTRANSFERASE (ALT), SERUM (04/18/2017 12:15 PM EST) ALT (SGPT) 19 6 - 29 U/L [facility] 04/18/2017 12:1 5 PM EST 04/18/2017 5:02 PM EST Narrative Resulting Agency Comment [id number] us Abel Fierro MD LAB SAME DAY RESULT Final Resul t Performing Organization Address [facility] Co de Phone Number [facility] [address] [place] [address] * ASPARTATE AMINOTRANSFERASE (AST), SERUM (04/18/2017 12:15 PM EST) AST (SGOT) 19 10 - 35 U/L [facility] 04/18/2017 12:1 5 PM EST 04/18/2017 5:02 PM EST Narrative Resulting Agency Comment [id number] us Able Fierro MD LAB SAME DAY RESULT Final Resul t Performing Organization Address [facility] de Phone Number [facility] [address] [place] [address] * CBC INCLUDES DIFFERENTIAL AND PLATELET COUNT [...] 5:02 PM EST Narrative Resulting Agency Comment [id number] us Abel Fierro MD LAB SAME DAY RESULT Final Resul t Performing Organization Address City/[facility] Co de Phone Number [facility] [address] [place] [address] documented in this encounter Visit Diagnoses Diagnosis Rheumatoid arthritis involving multiple sites with positive rheumatoid factor (HCC) documented in this encounter Care Teams Forestry Worker Relationship Specialty Start Date End Date Charly Saxena [facility] [address] [place] [address] PCP - General Internal Medicine 05/25/13 07/16/17 Cheryl Calderon MD [facility] Adult Medicine [address] [place] [address] PCP - General Internal Medicine 07/17/17 documented as of this encounter
--- OUTSIDE RECORDS SUMMARY | 2024-12-23 12:16 | XMS_ITS | Encounter Summary ---
Author Organization [facility] Address [address] [place] [address] Phone Care Team Providers Care Fast Food Shift Supervisor Name Role Phone Cash Fernandes MD Unavailable [phone] Keren Poon [facility] Primary Care Provid er Willi Wells MD Unavailable Unavailable Jose Thakur MD Unavailable [phone] Dana Rucker COMPUTING CONSULTANT Unavailable Jonathan Alvarez MD Unavailable [phone] Anival Borja MD Unavailable Lyndsay Reynoso COMPUTING CONSULTANT Unavailable [phone] Gutierrez Pittman MD Unavailable [phone] Encounter Details Date Type Department Care Team (Latest Contact Info) Description 09/30/2024 Transcribe Orders Virtual Department 30 [place] [address] Argelia Taylor, JULI 10 [place], [place] [id number] Globus sensation (Primary Dx) Social History Tobacco [...] Upcoming Encounters Date Type Department Care Team ([facility] st Contact Info) Description 12/25/2024 2:30 PM EDT Office Visit [facility] Infectious Diseases 22 [place] [address] Dana Rucker [facility] [address] [address] [email or web address] 01/01/2025 1:00 PM EDT Office Visit [facility] Rehabilitation Services [address] [place] [address] Dana Rucker [address] [address] [email or web address] Nereyda Wong, PT [address] [place] [address] 01/07/2025 2:30 PM EDT Office Visit [facility] Pulmonary, Allergy and Critical Care Medicine 10 [place] [address] Jose Thakur MD 30 [place] [address] 01/19/2025 2:30 PM EDT Office Visit [facility] 380 [place] [address] Dana Rucker, COMPUTING CONSULTANT [address] [address] Nereyda Wong, PT 380 [place] [address] 01/26/2025 2:30 PM EDT Office Visit [facility] [address] [place] [address] Dana Rucker, [address] [address] Nereyda Wong, PT [address] [place] [address] 01/29/2025 3:00 PM EDT Office Visit [address] [place] [address] Keren Poon, OUTPATIENT CLERK [address] [place] [address] 02/01/2025 3:00 PM EDT Office Visit [address] [place] [address] Keren Poon, OUTPATIENT CLERK [address] [place] [address] 03/02/2025 2:30 PM EST Office Visit [facility] [address] [place] [address] Dana Rucker FNP [address] [address] [email or web address] Nereyda Wong, PT [address] [place] [address] [email or web address] 03/09/2025 2:30 PM EST Office Visit [facility] 380 [place] [address] Dana Rucker, [facility] [address] [address] Nereyda Wong, PT [address] [place] [address] [email or web address] 03/16/2025 2:30 PM EST Office Visit [address] [address] Dana Rucker, [facility] [address] [address] [email or web address] Nereyda Wong, PT [address] [place] [address] [email or web address] 06/03/2025 2:00 PM EST Office Visit [facility] [address] [place] [address] [place] [address] Keren Poon, OUTPATIENT CLERK [address] [place] [address] documented as of this encounter Results * [...] report originally createdby Ross Hernandez. Argelia Taylor MORTAR MIXER OPERATOR IMG [place] MISC Final Res ult documented [...] of this encounter Care Teams Fast Food Shift Supervisor Relationship Specialty Start Date End Date Keren Poon CNP [address] [place] [address] [email or web address] PCP - General Family Medicine 01/31/23 Cash Fernandes MD [address] [place] [address] Gastroenterology 08/23/20 Willi Wells MD [address] [place] [address] [place] [address] Rheumatology 02/04/24 Jose Thakur MD 30 [place] [address] Plastic Installer Pulmonary Disease 03/17/24 Dana Rucker FNP [address] [address] [email or web address] Nurse Practitioner Infectious Diseases 05/21/24 Jonathan Alvarez MD [address] [place] [address], [address] [place] [address] Urology 05/14/23 Anival Borja MD [address] [place] [address], [address] [place] [address] [email or web address] Neurologist Neurology 01/04/23 Lyndsay Reynoso FNP [address] [place] [address] Nurse Practitioner Pain Medicine 05/27/22 Gutierrez Pittman MD [address] [place] [address] White Work Cleaner Cardiology 05/27/24 documented as of this encounter Additional Source Comments The information contained in this document represents components of the legal health record. It is not the complete legal health record.[facility]
--- OUTSIDE RECORDS SUMMARY | 2024-12-23 12:16 | XMS_ITS | Encounter Summary ---
Author Organization [facility] Address [address] [place] [address] Care Team Providers Care Hr Generalist Name Role Phone Cheryl Calderon MD Primary Care Provider [phone] Encounter Details Date Type Department Care Team (Late st Contact Info) Description 03/14/2018 Orders Only [facility]. Rheumatology [address] [place] [phone] Abel Fierro MD 5 [place] [address] Social History Tobacco Use Types Packs/Day Years [...] 9:19 PM EST Narrative Resulting Agency Comment [id number] us Abel Fierro MD LABORATORY Final Result Performing Organization Address City/[facility] Co de Phone Number [facility] [address] [place] [address] * C-REACTIVE PROTEIN (CRP) - INFLAMMATION (03/14/2018 1:47 PM EST) C reactive protein 1.7 <8.0 mg/L [facility] 03/14/2018 1:47 PM EST 03/14/2018 9:19 PM EST Narrative Resulting Agency Comment [id number] us bAel Feirro MD LABORATORY Final Result Performing Organization Address [facility] Co de Phone Number [facility] [address] [place] [address] * ERYTHROCYTE SEDIMENTATION RATE (ESR), WESTERGREN (03/14/2018 1:47 PM EST) Sedimentation Rate [place] (ESR) 19 < OR = 30 mm/h [facility] 03/14/2018 1:47 PM EST 03/14/2018 9:19 PM EST Narrative Resulting Agency Comment [id number] Abel Fierro MD LAB SAME DAY RESULT Final Resul t Performing Organization Address City/[facility] Co de Phone Number [facility] [address] [place] [address] * CREATININE WITH GLOMERULAR FILTRATION RATE, ESTIMATED (EGFR) (03/14/2018 1:47 PM EST) Creatinine 0.70 0.50 - 0.99 mg/dL [facility] Comment: For patients >49 years of age, the reference limit for Creatinine is approximately 13% higher for people identified as -[place]. GFR 92 > OR = 60 mL/min/1. [...] needs for GFR calculation. Resulting Agency Comment [id number] us Abel Fierro MD LAB SAME DAY RESULT Final Resul t Performing Organization Address City/[facility] Co de Phone Number [facility] [address] [place] [address] * ALANINE AMINOTRANSFERASE (ALT), SERUM (03/14/2018 1:47 PM EST) ALT (SGPT) 18 6 - 29 U/L [facility] 03/14/2018 1:47 PM EST 03/14/2018 9:19 PM EST Narrative Resulting Agency Comment [id number] Abel Fierro MD LAB SAME DAY RESULT Final Resul t [facility] [address] [place] [address] * ASPARTATE AMINOTRANSFERASE (AST), SERUM (03/14/2018 1:47 PM EST) AST (SGOT) 23 10 - 35 U/L [facility] 03/14/2018 1:47 PM EST 03/14/2018 9:19 PM EST Narrative Resulting Agency Comment [id number] Abel Fierro MD LAB SAME DAY RESULT Final Resul t Performing Organization Address [facility] Co de Phone Number [facility] [address] [place] [address] * (ABNORMAL) CBC INCLUDES DIFFERENTIAL AND PLATELET [...] 9:19 PM EST Narrative Resulting Agency Comment [id number] us Abel Fierro MD LAB SAME DAY RESULT Final Resul t [facility] [address] [place] [address] documented in this encounter Visit Diagnoses Diagnosis Rheumatoid arthritis involving multiple sites with positive rheumatoid factor (HCC) documented in this encounter Care Teams Hr Generalist Relationship Specialty Start Date End Date Cheryl Calderon MD [facility] Adult Medicine [address] [place] [address] PCP - General Internal Medicine 07/17/17 documented as of this encounter
--- OUTSIDE RECORDS SUMMARY | 2024-12-23 12:16 | XMS_ITS | Encounter Summary ---
Author Organization [facility] Address [address] [place] [address] Care Team Providers Care Security Controls Assessor Name Role Phone Alberto Pacheco Primary Care Provider [phone] Unknown Pcp, Non Rmg Primary Care Provider Unava ilable Charly Saxena Primary Care Provider [phone] Charly Saxena Primary Care Provider Cheryl Calderon MD Primary Care Provider [phone] Encounter Details Date Type Department Care Team (Late st Contact Info) Description 02/04/2007 Orders Only [facility] Rheumatology [address] [place] [address] Abel Fierro MD 5 [place] [address] Social History Tobacco Use Types Packs/Day Years [...] this encounter Procedures * Due to [employer] law, this organization might not be sharing [...] - 35 U/L [facility] (CLIA# [id number]) 02/04/2007 02/04/2007 7:3 1 PM EDT us Abel Fierro MD LAB SAME DAY RESULT Final Resul t [facility] (CLIA# [id number]) [address] [place] [address] * (ABNORMAL) CBC 5 PART DIFF (02/04/2007) WHITE BLOOD COUNT 9.7 3.8 - 10.8 THOUS/UL [facility] (CLIA# [id number]) RBC 5.08 3.80 - 5.10 MIL/UL [facility] (CLIA# [id number]) Hemoglobin 15.4 11.7 - 15.5 G/DL [facility] (CLIA# [id number]) HCT (HEMATOCRIT) 45.3(H) 35.0 - 45.0 % [facility] (CLIA# [id number]) MCV 89.2 80.0 - 100.0 FL [facility] (CLIA# [id number]) MCH 30.4 27.0 - 33.0 PG [facility] (CLIA# [id number]) MCHC 34.1 32.0 - 36.0 G/DL [facility] (CLIA# [id number]) BAND % 0 0 - 5 % [facility] (CLIA# [id number]) NEUTROPHIL % 84(H) 48 - 75 % [facility] (CLIA# [id number]) LYMPHOCYTE % 10(L) 17 - 40 % [facility] (CLIA# [id number]) MONOCYTE % 6 0 - 14 % [facility] (CLIA# [id number]) EOSINOPHIL % 0 0 - 5 % [facility] (CLIA# [id number]) BASOPHIL % 0 0 - 3 % [facility] (CLIA# [id number]) ATYPICAL LYMPHOCYTE % 0 0 - 5 % [facility] (CLIA# [id number]) PLATELETS 392 140 - 400 THOUS/UL [facility] (CLIA# [id number]) BANDS # 0 0 - 750 CELLS/MCL [facility] (CLIA# [id number]) NEUTROPHILS # 8148(H) 1500 - 7800 CELLS/MCL [facility] (CLIA# [id number]) LYMPHOCYTES # 970 850 - 3900 CELLS/MCL [facility] (CLIA# [id number]) MONOCYTES # 582 200 - 950 CELLS/MCL [facility] (CLIA# [id number]) EOSINOPHILS # 0(L) 15 - 550 CELLS/MCL [facility] (CLIA# [id number]) BASOPHILS # 0 0 - 200 CELLS/MCL [facility] (CLIA# [id number]) ATYPICAL LYMPHOCYTES # 0 0 - 200 /UL [facility] (CLIA# [id number]) RDW 14.6 11.0 - 15.0 % [facility] (CLIA# [id number]) MPV 7.6 7.5 - 11.5 FL [facility] (CLIA# [id number]) 02/04/2007 02/04/2007 7:3 1 PM EDT us Abel Fierro MD LAB SAME DAY RESULT Final Resul t [facility] (CLIA# [id number]) [address] [place] [address] documented in this encounter Visit Diagnoses Diagnosis RHEUMATOID ARTHRITIS Rheumatoid arthritis documented in this encounter Care Teams Security Controls Assessor Relationship Specialty Start Date End Date Alberto Pacheco [address] [place] [address] PCP - General 07/19/08 05/24/13 Unknown Pcp, Non Rmg PCP - General 06/30/08 07/18/08 Charly Saxena [facility] [address] [place] [address] PCP - General 01/18/06 06/29/08 Charly Saxena [facility] [address] [place] [address] PCP - General Internal Medicine 05/25/13 07/16/17 Cheryl Calderon MD [facility] Medicine [address] [place] [address] PCP - General Internal Medicine 07/17/17 documented as of this encounter
--- OUTSIDE RECORDS SUMMARY | 2024-12-23 12:16 | XMS_ITS | Encounter Summary ---
Author Organization [facility] Address [address] [place] [address] Phone Care Team Providers Care Farm Owner Operator Name Role Phone Jessicaroxanne Ita Mccrackengh [facility] Primary Care Provider Cash Fernandes MD Unavailable [phone] Seven Menchaca MD Unavailable [phone] Chavo Jack MD Primary Care Provider Keren Poon [facility] Primary Care Provid er Chavo Jack MD Unavailable Willi Wells MD Unavailable Unavailable Jose Thakur MD Unavailable Dana Rucker BROADCAST OPERATIONS ENGINEER Unavailable Jonathan Alvarez MD Unavailable [phone] Anival Borja MD Unavailable [phone] Lyndsay Reynoso BROADCAST OPERATIONS ENGINEER Unavailable Gutierrez Pittman MD Unavailable [phone] Encounter Details Date Type Department Care Team (Late st Contact Info) Description 07/10/2021 Procedure Pass [facility] [address] [place] [address] Social History Tobacco Use Types Packs/Day Years [...] high school, GED, job training, learning the French language, technical skills, or developing parenting skills)? [...] 12/25/2024 2:30 PM EDT Office Visit [facility] Infectious Diseases [address] [place] [address] Dana Rucker FNP [address] [address] [email or web address] 01/01/2025 1:00 PM EDT Office Visit [address] [address] Dana Rucker FNP [address] [address] [email or web address] Nereyda Wong, PT [address] [place] [address] [email or web address] 01/07/2025 2:30 PM EDT Office Visit [facility] Pulmonary, Allergy and Critical Care Medicine 10 [place] [address] Jose Thakur MD [address] [place] [address] 01/19/2025 2:30 PM EDT Office Visit [address] [address] Dana Rucker, BROADCAST OPERATIONS ENGINEER [address] [address] [email or web address] Nereyda Wong, PT [address] [place] [address] [email or web address] 01/26/2025 2:30 PM EDT Office Visit [address] [address] Dana Rucker FNP [address] [address] Nereyda Wong, PT [address] [place] [address] 01/29/2025 3:00 PM EDT Office Visit [address] [place] [address] Keren Poon, EXT JS DEVELOPER [address] [place] [address] 02/01/2025 3:00 PM EDT Office Visit [address] [place] [address] Keren Poon, EXT JS DEVELOPER [address] [place] [address] 03/02/2025 2:30 PM EST Office Visit [address] [address] Dana Rucker, [address] [address] Nereyda Wong, PT [address] [place] [address] 03/09/2025 2:30 PM EST Office Visit [facility] [address] [place] [address] Dana Rucker, [address] [address] Nereyda Wong, PT [address] [place] [address] 03/16/2025 2:30 PM EST Office Visit [facility] Rehabilitation Services [address] [place] [address] Dana Rucker, BROADCAST OPERATIONS ENGINEER 15 [facility], 2nd [place] [address] Nereyda Wong, PT [address] [place] [address] 06/03/2025 2:00 PM EST Office Visit [facility] [address] [place] [address] [place] [address] Keren Poon, EXT JS DEVELOPER 170 [facility], 2nd [place] [address] [email or web address] documented as of this encounter Visit [...] documented as of this encounter Care Teams Farm Owner Operator Relationship Specialty Start Date End Date Kandacesusi Ita ORI Nelson [address] [place] [address] [email or web address] PCP - General Internal Medicine 08/19/20 09/17/22 Chavo Jcak MD [address] [place] [address] [email or web address] PCP - General Internal Medicine 09/18/22 01/30/23 Keren Poon CNP [address] [place] [address], 2[address] [place] [address] [email or web address] PCP - General Family Medicine 01/31/23 Cash Fernandes MD [address] [place] [address] [email or web address] Gastroenterology 08/23/20 Seven Menchaca MD [address] [place] [address] [email or web address] Insurance Assigned Provider 08/04/22 08/03/23 Chavo Jack MD [address] [place] [address] [email or web address] Insurance Assigned Provider 08/03/23 05/04/24 Willi Wells MD [address] [place] [address] [place] [address] Rheumatology 02/04/24 Jose Thakur MD [address] [place] [address] Physiotherapy Assistant Pulmonary Disease 03/17/24 Dana Rucker FNP 15 [facility], 2nd [place] [address] Nurse Practitioner Infectious Diseases 05/21/24 Jonathan Alvarez MD [address] [place] [address], [address] [place] [address] Urology 05/14/23 Anival Borja MD [address] [place] [address], [address] [place] [address] Neurologist Neurology 01/04/23 Lyndsay Reynoso FNP [address] [place] [address] Nurse Practitioner Pain Medicine 05/27/22 Gutierrez Pittman MD [address] [place] [address] Cement Mixer Driver Cardiology 05/27/24 documented as of this encounter Additional Source Comments The information contained in this document represents components of the legal health record. It is not the complete legal health record.[facility]
--- OUTSIDE RECORDS SUMMARY | 2024-12-23 12:16 | XMS_ITS | Encounter Summary ---
Author Organization [facility] Address [address] [place] [address] Care Team Providers Care Flight Test Supervisor Name Role Phone Alberto Pacheco Primary Care Provider [phone] Unknown Pcp, Non Rmg Primary Care Provider Unava ilable Charly Saxena Primary Care Provider [phone] Charly Saxena Primary Care Provider [phone] Cheryl Calderon MD Primary Care Provider [phone] Encounter Details Date Type Department Care Team (Late st Contact Info) Description 02/03/2007 Orders Only [facility] Rheumatology [address] [place] [address] Nikkie Moss, ARCHITECTURAL ENGINEERING TEACHER [address] [place], [place] [phone] Social History Tobacco Use Types Packs/Day Years [...] (SGOT) 16 10 - 35 U/L [facility] (CLIA# [id number]) 02/04/2007 02/04/2007 7:3 1 PM EDT us Abel Fierro MD LAB SAME DAY RESULT Final Resul t [facility] (CLIA# [id number]) [address] [place] [address] * (ABNORMAL) CBC 5 PART DIFF (02/04/2007) WHITE BLOOD COUNT 9.7 3.8 - 10.8 THOUS/UL [facility] (CLIA# [id number]) RBC 5.08 3.80 - 5.10 MIL/UL [facility] (CLIA# [id number]) Hemoglobin 15.4 11.7 - 15.5 G/DL [facility] (CLIA# [id number]) HCT (HEMATOCRIT) 45.3(H) 35.0 - 45.0 % [facility] (CLIA# [id number]) MCV 89.2 80.0 - 100.0 FL [facility] (CLIA# [id number]) MCH 30.4 27.0 - 33.0 PG [facility] (CLIA# [id number]) MCHC 34.1 32.0 - 36.0 G/DL [facility] (CLIA# [id number]) BAND % 0 0 - 5 % [facility] (CLIA# [id number]) NEUTROPHIL % 84(H) 48 - 75 % [facility] (CLIA# [id number]) LYMPHOCYTE % 10(L) 17 - 40 % [facility] (CLIA# [id number]) MONOCYTE % 6 0 - 14 % [facility] (CLIA# [id number]) EOSINOPHIL % 0 0 - 5 % [facility] (CLIA# [id number]) BASOPHIL % 0 0 - 3 % [facility] (CLIA# [id number]) ATYPICAL LYMPHOCYTE % 0 0 - 5 % [facility] (CLIA# [id number]) PLATELETS 392 140 - 400 THOUS/UL [facility] (CLIA# [id number]) BANDS # 0 0 - 750 CELLS/MCL [facility] (CLIA# [id number]) NEUTROPHILS # 8148(H) 1500 - 7800 CELLS/MCL [facility] (CLIA# [id number]) LYMPHOCYTES # 970 850 - 3900 CELLS/MCL [facility] (CLIA# [id number]) MONOCYTES # 582 200 - 950 CELLS/MCL [facility] (CLIA# [id number]) EOSINOPHILS # 0(L) 15 - 550 CELLS/MCL [facility] (CLIA# [id number]) BASOPHILS # 0 0 - 200 CELLS/MCL [facility] (CLIA# [id number]) ATYPICAL LYMPHOCYTES # 0 0 - 200 /UL [facility] (CLIA# [id number]) RDW 14.6 11.0 - 15.0 % [facility] (CLIA# [id number]) MPV 7.6 7.5 - 11.5 FL [facility] (CLIA# [id number]) 02/04/2007 02/04/2007 7:3 1 PM EDT us Abel Fierro MD LAB SAME DAY RESULT Final Resul t [facility] (CLIA# [id number]) [address] [place] [address] documented in this encounter Visit Diagnoses Diagnosis RHEUMATOID ARTHRITIS- Primary Rheumatoid arthritis documented in this encounter Care Teams Flight Test Supervisor Relationship Specialty Start Date End Date Alberto Pacheco [address] [place] [phone] PCP - General 07/19/08 05/24/13 Unknown Pcp, Non Rmg PCP - General 06/30/08 07/18/08 Charly Saxena [address] [address] PCP - General 01/18/06 06/29/08 Charly Saxena [address] [place] [address] PCP - General Internal Medicine 05/25/13 07/16/17 Cheryl Calderon MD [facility] Adult Medicine [address] [place] [address] PCP - General Internal Medicine 07/17/17 documented as of this encounter
--- OUTSIDE RECORDS SUMMARY | 2024-12-23 12:16 | XMS_ITS | Encounter Summary ---
Author Organization [facility] Address [address] [place] [address] Phone Care Team Providers Care Director Of Analytics Name Role Phone Cash Fernandes MD Unavailable [phone] Keren Poon [facility] Primary Care Provid er Willi Wells MD Unavailable Unavailable Jose Thakur MD Unavailable Dana Rucker MUD CAR WORKER Unavailable [phone] Jonathan Alvarez MD Unavailable [phone] Anival Borja MD Unavailable Lyndsay Reynoso MUD CAR WORKER Unavailable Gutierrez Pittman MD Unavailable [phone] Encounter Details Date Type Department Care Team (Late st Contact Info) Description 05/13/2024 Procedure Pass [facility] Endoscopy Admitting Dept Virtual Department 30 [place], [place] [id number] Social History Tobacco Use Types Packs/Day Years [...] Description 12/25/2024 2:30 PM EDT Office Visit [facility] Infectious Diseases 22 [place] [address] Dana Rucker FNP [address] [place] [address] 01/01/2025 1:00 PM EDT Office Visit [facility] [address] [place] [address] Dana Rucker FNP [address] [place] [address] Nereyda Wong, PT 380 [place] [address] 01/07/2025 2:30 PM EDT Office Visit [facility] Pulmonary, Allergy and Critical Care Medicine 10 [facility] [place], [place] [id number] Jose Thakur MD 30 [place] [address] 01/19/2025 2:30 PM EDT Office Visit [facility] 380 [place] [address] Dana Ruckerley, [facility] 15 [facility], [address] [place] [address] Nereyda Wong, PT 380 [place] [address] 01/26/2025 2:30 PM EDT Office Visit [facility] [address] [place] [address] Dana Rucker, [facility] 15 [facility], [address] [place] [address] Nereyda Wong, PT [address] [place] [address] 01/29/2025 3:00 PM EDT Office Visit [address] [place] [address] Keren Poon, HYDROELECTRIC PLANT OPERATOR [address] [address] 02/01/2025 3:00 PM EDT Office Visit [address] [place] [address] Keren Poon, HYDROELECTRIC PLANT OPERATOR [address] [place] [address] 03/02/2025 2:30 PM EST Office Visit [facility] [address] [place] [address] Dana Rucker, [facility] 15 [facility], [address] [place] [address] Nereyda Wong, PT 380 [place] [address] 03/09/2025 2:30 PM EST Office Visit [facility] [address] [place] [address] Dana Rucker, [facility] [address] [address] Nereyda Wong, PT 380 [place] [address] 03/16/2025 2:30 PM EST Office Visit [facility] [address] [place] [address] Dana Rucker, [facility] [address] [address] Nereyda Wong, PT 380 [place] [address] 06/03/2025 2:00 PM EST Office Visit [facility] [address] [place] [address] [place] [address] Keren Poon, HYDROELECTRIC PLANT OPERATOR [address] [place] [address] [email or web address] documented as of [...] of this encounter Care Teams Director Of Analytics Relationship Specialty Start Date End Date Keren Poon CNP [address] [place] [address], [address] [place] [address] [email or web address] PCP - General Family Medicine 01/31/23 Cash Fernandes MD [address] [place] [address] [email or web address] Gastroenterology 08/23/20 Willi Wells MD [address] [place] [address] [place] [address] Rheumatology 02/04/24 Jose Thakur MD 30 [place] [address] [email or web address] Blasting Entryman Pulmonary Disease 03/17/24 Dana Rucker FNP [address] [address] [email or web address] Nurse Practitioner Infectious Diseases 05/21/24 Jonathan Alvarez MD [address] [place] [address], [address] [place] [address] [email or web address] Urology 05/14/23 Anival Borja MD [address] [place] [address], [address] [place] [address] [email or web address] Neurologist Neurology 01/04/23 Lyndsay Reynoso FNP [address] [address] Nurse Practitioner Pain Medicine 05/27/22 Gutierrez Pittman MD [address] [place] [address] Public Services Assistant Cardiology 05/27/24 documented as of this encounter Additional Source Comments The information contained in this document represents components of the legal health record. It is not the complete legal health record.[facility]
--- OUTSIDE RECORDS SUMMARY | 2024-12-23 12:16 | XMS_ITS | Encounter Summary ---
Author Organization [facility] Address 5 [place] [address] Care Team Providers Care Shingle Packer Name Role Phone Cheryl Calderon MD Primary Care Provider [phone] Encounter Details Date Type Department Care Team (Late st Contact Info) Description 02/16/2019 Orders Only [facility] Rheumatology [address] [place] [phone] Melanie Aguirre MD Social History Tobacco Use [...] higher for people identified as -South Sudanese. EGFR 93 > OR = 60 mL/min/1 [...] needs for GFR calculation. Resulting Agency Comment [id number] Melanie Aguirre MD LABORATORY Final Result Performing Organization Address [facility] [place] [facility]/ZIP Co de Phone Number [facility] [address] [place] [address] * (ABNORMAL) C-REACTIVE PROTEIN (CRP) - INFLAMMATION (02/16/2019 2:04 PM EDT) Pathologist [facility] C reactive protein 79.2(H) <8.0 mg/L [facility] 02/16/2019 2:04 PM EDT 02/16/2019 11:45 PM EDT Narrative Resulting Agency Comment [id number] Melanie Aguirre MD LABORATORY Final Result Performing Organization Address [facility] Co de Phone Number [facility] [address] [place] [address] * (ABNORMAL) CBC INCLUDES DIFFERENTIAL AND PLATELET COUNT (02/16/2019 2:04 PM EDT) Pathologist [facility] WBC 10.8 3.8 - 10.8 Thousand/u L [...] 11:45 PM EDT Narrative Resulting Agency Comment [id number] us Melanie Aguirre MD LAB SAME DAY RESULT Final Result Performing Organization Address City/[facility] Co de Phone Number [facility] [address] [place] [address] * (ABNORMAL) ERYTHROCYTE SEDIMENTATION RATE (ESR), WESTERGREN (02/16/2019 2:04 PM EDT) Sedimentation Rate [place] (ESR) 72(H) < OR = 30 mm/h [facility] 02/16/2019 2:04 PM EDT 02/16/2019 11:45 PM EDT Narrative Resulting Agency Comment [id number] us Melanie Aguirre MD LAB SAME DAY RESULT Final Result Performing Organization Address [facility] [place] [facility] de Phone Number [facility] [address] [place] [address] documented in this encounter Visit Diagnoses Diagnosis Rheumatoid arthritis involving multiple sites with positive rheumatoid factor (HCC) documented in this encounter Care Teams Shingle Packer Relationship Specialty Start Date End Date Cheryl Calderon MD [facility] Adult Medicine [address] [place] [address] PCP - General Internal Medicine 07/17/17 documented as of this encounter
--- OUTSIDE RECORDS SUMMARY | 2024-12-23 12:16 | XMS_ITS | Encounter Summary ---
Author Organization [facility] Address 5 [place] [address] Care Team Providers Care Armed Custom Protection Officer Name Role Phone Cheryl Calderon MD Primary Care Provider [phone] Reason for Visit * Reason Comments E-prescribing Refill Request Encounter Details Date Type Department Care Team (Late st Contact Info) Description 09/19/2017 Refill [facility] Rheumatology [address] [place] [address] Abel Fierro MD 5 [place] [address] E-prescribing Refill Request Social History Tobacco Use [...] Phone 01/16/18 1:00 PM Abel Fierro MD [facility] [phone] Pertinent lab results: Lab Results Component Value [...] ??? Elbow pain 06/03/2012 ??? Rheumatoid arthritis(714.0) ([facility]) 09/29/2010 Followed by rheumatology treated with [...] AN EMPTY STOMACH 6 ??? Nystatin (NYSTOP) 312587 UNIT/GM Powder APPLY TO BUTTOCKS THREE TIMES [...] on filedocumented in this encounter Care Teams Armed Custom Protection Officer Relationship Specialty Start Date End Date Cheryl Calderon MD [facility] Adult Medicine [address] [place] [address] PCP - General Internal Medicine 07/17/17 documented as of this encounter
--- OUTSIDE RECORDS SUMMARY | 2024-12-23 12:16 | XMS_ITS | Encounter Summary ---
Author Organization [facility] Address [address] [place] [address] Care Team Providers Care Irrigation Tax Assessor Collector Name Role Phone Charly Saxena Primary Care Provider [phone] Cheryl Calderon MD Primary Care Provider [phone] Encounter Details Date Type Department Care Team (Late st Contact Info) Description 02/14/2017 Orders Only [facility] Rheumatology [address] [place] [address] Abel Fierro MD 5 [place] [address] Social History Tobacco Use Types Packs/Day Years [...] 9:13 PM EDT Narrative Resulting Agency Comment [id number] us Abel Fierro MD LAB SAME DAY RESULT Final Resul t Performing Organization Address [facility] Co de Phone Number [facility] [address] [place] [address] * ASPARTATE AMINOTRANSFERASE (AST), SERUM (02/14/2017 2:31 PM EDT) AST (SGOT) 27 10 - 35 U/L [facility] 02/14/2017 2:31 PM EDT 02/14/2017 9:13 PM EDT Narrative Resulting Agency Comment [id number] Abel Fierro MD LAB SAME DAY RESULT Final Resul t Performing Organization Address [facility] de Phone Number [facility] [address] [place] [address] * CREATININE WITH GLOMERULAR FILTRATION RATE, ESTIMATED (EGFR) (02/14/2017 2:31 PM EDT) Creatinine 0.80 0.50 - 0.99 mg/dL [facility] Comment: For patients >49 years of age, the reference limit for Creatinine is approximately 13% higher for people identified as -Iranian. GFR 79 > OR = 60 mL/min/1. [...] needs for GFR calculation. Resulting Agency Comment [id number] us Abel Fierro MD LAB SAME DAY RESULT Final Resul t [facility] [address] [place] [address] * (ABNORMAL) CBC INCLUDES DIFFERENTIAL AND PLATELET [...] 9:13 PM EDT Narrative Resulting Agency Comment [id number] us Abel Fierro MD LAB SAME DAY RESULT Final Resul t [facility] [address] [place] [address] documented in this encounter Visit Diagnoses Diagnosis Rheumatoid arthritis involving multiple sites with positive rheumatoid factor (HCC) documented in this encounter Care Teams Irrigation Tax Assessor Collector Relationship Specialty Start Date End Date Charly Saxena [facility] [address] [place] [address] PCP - General Internal Medicine 05/25/13 07/16/17 Cheryl Calderon MD [facility] Adult Medicine [address] [place] [address] PCP - General Internal Medicine 07/17/17 documented as of this encounter
--- OUTSIDE RECORDS SUMMARY | 2024-12-23 12:16 | XMS_ITS | Encounter Summary ---
Author Organization [facility] Address [address] [place] [address] Care Team Providers Care Software Designer Name Role Phone Alberto Pacheco Primary Care Provider [phone] Charly Saxena Primary Care Provider [phone] Cheryl Calderon MD Primary Care Provider [phone] Reason for Visit * Reason Comments E-prescribing Refill Request Encounter Details Date Type Department Care Team ([facility] st Contact Info) Description 10/20/2011 Refill [facility] Rheumatology [address] [place] [address] Abel Fierro MD 5 [place] [address] E-prescribing Refill Request Social History Tobacco Use [...] on filedocumented in this encounter Care Teams Software Designer Relationship Specialty Start Date End Date Alberto Pacheco [address] [place] [address] PCP - General 07/19/08 05/24/13 Charly Saxena [facility] [address] [place] [address] PCP - General Internal Medicine 05/25/13 07/16/17 Cheryl Calderon MD [facility] [address] [place] [address] PCP - General Internal Medicine 07/17/17 documented as of this encounter
--- OUTSIDE RECORDS SUMMARY | 2024-12-23 12:16 | XMS_ITS | Encounter Summary ---
Author Organization [facility] Address 5 [place] [address] Care Team Providers Care Spectrographer Name Role Phone Cheryl Calderon MD Primary Care Provider [phone] Reason for Visit * Reason Comments E-prescribing Refill Request Encounter Details Date Type Department Care Team (Late st Contact Info) Description 02/01/2018 Refill [facility] Rheumatology [address] [place] [address] Abel Fierro MD 5 [place] [address] E-prescribing Refill Request Social History Tobacco Use [...] on filedocumented in this encounter Care Teams Spectrographer Relationship Specialty Start Date End Date Cheryl Calderon MD [facility] 95 [place] [address] PCP - General Internal Medicine 07/17/17 documented as of this encounter
--- OUTSIDE RECORDS SUMMARY | 2024-12-23 12:16 | XMS_ITS | Encounter Summary ---
Author Organization [facility] Address [address] [place] [address] Care Team Providers Care Credentialer Name Role Phone Alberto Pacheco Primary Care Provider [phone] Unknown Pcp, Non [facility] Primary Care Provider Unava ilCharly Antoine Primary Care Provider Charly Saxena Primary Care Provider Cheryl Calderon MD Primary Care Provider [phone] Encounter Details Date Type Department Care Team (Late st Contact Info) Description 11/15/2006 Orders Only [facility] Rheumatology [address] [place] [address] Abel Fierro MD 5 [place] [address] Social History Tobacco Use Types Packs/Day Years [...] arthritis documented in this encounter Care Teams Credentialer Relationship Specialty Start Date End Date Alberto Pacheco [address] [place] [address] PCP - General 07/19/08 05/24/13 Unknown Pcp, Non [facility] PCP - General 06/30/08 07/18/08 Charly Saxena [facility] [address] [place] [address] PCP - General 01/18/06 06/29/08 Charly Saxena [facility] [address] [place] [address] PCP - General Internal Medicine 05/25/13 07/16/17 Cheryl Calderon MD [facility] Adult Medicine [address] [place] [address] PCP - General Internal Medicine 07/17/17 documented as of this encounter
--- OUTSIDE RECORDS SUMMARY | 2024-12-23 12:16 | XMS_ITS | Encounter Summary ---
Author Organization [facility] Address [address] [place] [address] Phone Care Team Providers Care Artificial Snow Making Machine Operator Name Role Phone Jessicaroxanne Ita Mccrackengh [facility] Primary Care Provider Cash Fernandes MD Unavailable [phone] Seven Menchaca MD Unavailable [phone] Chavo aJck MD Primary Care Provider [phone] Keren Poon [facility] Primary Care Provid er Chavo Jack MD Unavailable Willi Wells MD Unavailable Unavailable Jose Thakur MD Unavailable Dana Rucker BUDGET REPORT CLERK Unavailable [phone] Jonathan Alvarez MD Unavailable [phone] Anival Borja MD Unavailable Lyndsay Reynoso BUDGET REPORT CLERK Unavailable Gutierrez Pittman MD Unavailable [phone] Encounter Details Date Type Department Care Team (Late st Contact Info) Description 07/14/2021 Ancillary Orders [facility],Outside Imaging [address] [place] [address] System, Provider Not In, [facility] [address] [address] Social History Tobacco Use Types Packs/Day Years [...] high school, GED, job training, learning the Jamaican language, technical skills, or developing parenting skills)? [...] 2:30 PM EDT Office Visit [facility] Infectious Diseases [address] [place] [address] Dana Rucker FNP [address] [address] 01/01/2025 1:00 PM EDT Office Visit [facility] [address] [place] [address] Dana Rucker, DIVYA [address] [address] Nereyda Wong, PT 380 [place] [address] 01/07/2025 2:30 PM EDT Office Visit [facility] Pul[facility], Allergy and Critical Care Medicine 10 [place] [address] Jose Thakur MD [address] [place] [address] 01/19/2025 2:30 PM EDT Office Visit [facility] [address] [place] [address] Dana Rucker, BUDGET REPORT CLERK [address] [address] Nereyda Wong, PT [address] [place] [address] 01/26/2025 2:30 PM EDT Office Visit [address] [address] Josefina Ruckerh Leslee, [address] [address] Nereyda Wong, PT [address] [place] [address] 01/29/2025 3:00 PM EDT Office Visit [address] [place] [address] Keren Poon, APPLIED BIOLOGY PROFESSOR [address] [address] 02/01/2025 3:00 PM EDT Office Visit [address] [place] [address] Keren Poon, APPLIED BIOLOGY PROFESSOR [address] [place] [address] 03/02/2025 2:30 PM EST Office Visit [address] [address] Dana Ruckerley, [address] [address] Nereyda Wong, PT [address] [place] [address] 03/09/2025 2:30 PM EST Office Visit [address] [address] Dana Ruckerley, [address] [address] Nereyda Wong, PT [address] [place] [address] 03/16/2025 2:30 PM EST Office Visit [facility] [address] [place] [address] Dana Rucker, BUDGET REPORT CLERK 15 [facility], 2nd [place] [address] Nereyda Wong, PT [address] [place] [address] 06/03/2025 2:00 PM EST Office Visit [facility] [address] [place] [address] [place] [address] Keren Poon, ORI 170 [facility], 2nd [place] [address] [email or web address] documented as of this encounter Results * [...] documented as of this encounter Care Teams Artificial Snow Making Machine Operator Relationship Specialty Start Date End Date Ita PinedaORI [address] [place] [address] [email or web address] PCP - General Internal Medicine 08/19/20 09/17/22 Chavo Jack MD [address] [place] [address] [email or web address] PCP - General Internal Medicine 09/18/22 01/30/23 Keren Poon CNP [address] [place] [address], 2nd [place] [address] [email or web address] PCP - General Family Medicine 01/31/23 Cash Fernandes MD [address] [place] [address] [email or web address] Gastroenterology 08/23/20 Seven Menchaca MD [address] [place] [address] Insurance Assigned Provider 08/04/22 08/03/23 Chavo Jack MD [address] [place] [address] Insurance Assigned Provider 08/03/23 05/04/24 Willi Wells MD [address] [place] [address] [place] [address] Rheumatology 02/04/24 Jose Thakur MD [address] [place] [address] [facility] Pulmonary Disease 03/17/24 Dana Rucker FNP 15 [facility], 2nd [place] [address] Nurse Practitioner Infectious Diseases 05/21/24 Jonathan Alvarez MD [address] [place] [address], [address] [place] [address] Urology 05/14/23 Anival Borja MD [address] [place] [address], [address] [place] [address] Neurologist Neurology 01/04/23 Lyndsay Reynoso FNP [address] [place] [address] Nurse Practitioner Pain Medicine 05/27/22 Gutierrez Pittman MD 40 [place] [address] Middle School Music Teacher Cardiology 05/27/24 documented as of this encounter Additional Source Comments The information contained in this document represents components of the legal health record. It is not the complete legal health record.[facility]
--- OUTSIDE RECORDS SUMMARY | 2024-12-23 12:16 | XMS_ITS | Encounter Summary ---
Author Organization [facility] Address [address] [place] [address] Care Team Providers Care Solid Fiber Paster Operator Name Role Phone Charly Saxena Primary Care Provider [phone] Cheryl Calderon MD Primary Care Provider [phone] Encounter Details Date Type Department Care Team (Late st Contact Info) Description 05/24/2016 Orders Only [facility] Rheumatology [address] [place] [address] Abel Fierro MD 5 [place] [address] Social History Tobacco Use Types Packs/Day Years [...] for people identified as -East Timorese. GFR 66 > OR = 60 mL/min/1. [...] needs for GFR calculation. Resulting Agency Comment [id number] us Abel Fierro MD LAB SAME DAY RESULT Final Resul t [facility] [address] [place] [address] * ALANINE AMINOTRANSFERASE (ALT), SERUM (05/24/2016 10:20 AM EST) ALT (SGPT) 27 6 - 29 U/L [facility] 05/24/2016 10:2 0 AM EST 05/24/2016 5:04 PM EST Narrative Resulting Agency Comment [id number] us Abel Fierro MD LAB SAME DAY RESULT Final Resul t Performing Organization Address City/[facility]/ZIP Co de Phone Number [facility] [address] [place] [address] * ASPARTATE AMINOTRANSFERASE (AST), SERUM (05/24/2016 10:20 AM EST) AST (SGOT) 23 10 - 35 U/L [facility] 05/24/2016 10:2 0 AM EST 05/24/2016 5:04 PM EST Narrative Resulting Agency Comment [id number] us Abel Fierro MD LAB SAME DAY RESULT Final Resul t Performing Organization Address [facility] de Phone Number [facility] [address] [place] [address] * (ABNORMAL) CBC INCLUDES DIFFERENTIAL AND PLATELET [...] 5:04 PM EST Narrative Resulting Agency Comment [id number] us Abel Fierro MD LAB SAME DAY RESULT Final Resul t Performing Organization Address City/State/[facility] Co de Phone Number [facility] [address] [place] [address] documented in this encounter Visit Diagnoses Diagnosis Rheumatoid arthritis involving multiple sites with positive rheumatoid factor (HCC) [M05.79] documented in this encounter Care Teams Solid Fiber Paster Operator Relationship Specialty Start Date End Date Charly Saxena [facility] [address] [place] [address] PCP - General Internal Medicine 05/25/13 07/16/17 Cheryl Calderon MD [facility] Adult Medicine [address] [place] [address] PCP - General Internal Medicine 07/17/17 documented as of this encounter
--- OUTSIDE RECORDS SUMMARY | 2024-12-23 12:16 | XMS_ITS | Encounter Summary ---
Author Organization [facility] Address [address] [place] [address] Care Team Providers Care Fur Liner Name Role Phone Alberto Pacheco Primary Care Provider [phone] Charly Saxena Primary Care Provider [phone] Cheryl Calderon MD Primary Care Provider [phone] Encounter Details Date Type Department Care Team (Late st Contact Info) Description 03/31/2009 Orders Only [facility] Rheumatology [address] [place] [address] Abel Fierro MD [address] [place] [address] Social History Tobacco Use Types Packs/Day Years [...] RESULT Final Resul t Performing Organization Address City/State/[facility] Co de Phone Number [facility] [address] [place] [address] * (ABNORMAL) CBC 5 PART DIFF (03/31/2009) [...] Final Resul t Performing Organization Address City/[facility] Co de Phone Number [facility] [address] [place] [address] * ASPARTATE AMINOTRANSFERASE (AST), SERUM (03/31/2009) AST (SGOT) 20 10 - 35 U/L [facility] 03/31/2009 04/01/2009 12: 36 AM EST Narrative [facility] - 04/01/2009 5:29 AM EST Report Comments: RBC'S PRESENT, CHEMISTRY RESULT(S) MAY BE AFFECTED us Abel Fierro MD LAB SAME DAY RESULT Final Resul t Performing Organization Address City/[facility] Co de Phone Number [facility] [address] [place] [address] * ALANINE AMINOTRANSFERASE (ALT), SERUM (03/31/2009) ALT (SGPT) 21 6 - 40 U/L [facility] 03/31/2009 04/01/2009 12: 36 AM EST Narrative [facility] - 04/01/2009 5:29 AM EST Report Comments: RBC'S PRESENT, CHEMISTRY RESULT(S) MAY BE AFFECTED us Abel Fierro MD LAB SAME DAY RESULT Final Resul t [facility] [address] [place] [address] documented in this encounter Visit Diagnoses Diagnosis Rheumatoid arthritis(714.0) Rheumatoid arthritis documented in this encounter Care Teams Fur Liner Relationship Specialty Start Date End Date Alberto Pacheco [address] [place] [address] PCP - General 07/19/08 05/24/13 Charly Saxena [facility] [address] [place] [address] PCP - General Internal Medicine 05/25/13 07/16/17 Cheryl Calderon MD [facility] Medicine [address] [place] [address] PCP - General Internal Medicine 07/17/17 documented as of this encounter
--- OUTSIDE RECORDS SUMMARY | 2024-12-23 12:16 | XMS_ITS | Encounter Summary ---
Author Organization [facility] Address [address] [place] [address] Phone Care Team Providers Care Practicing Md Anesthesiologist Name Role Phone Patrick Sanchez MD Unavailable [phone] Cheryl Calderon MD Primary Care Provider Keren Mabry MD Unavailable [phone] Louisa Hogan MD Unavailable Charly Saxena DO Unavailable [phone] Abhinav Muhammad MD Unavailable [phone] Cheryl Giraldo MEASURING MACHINE OPERATOR Unavailable Wilfrido Steel MD Unavailable [phone] Sharon Martin PA-C Unavailable Ita Pineda ENTRY LEVEL ACCOUNT REPRESENTATIVE Primary Care Provider Cash Fernandes MD Unavailable [phone] Seven Menchaca MD Unavailable [phone] Chavo Jack MD Primary Care Provider [phone] Keren Poon [facility] Primary Care Provid er Chavo Jack MD Unavailable Willi Wells MD Unavailable Unavailable Jose Thakur MD Unavailable Dana Rucker ELECTRICAL MAINTENANCE ENGINEER Unavailable Jonathan Alvarez MD Unavailable [phone] Anival Borja MD Unavailable Angeles Lyndsay K ELECTRICAL MAINTENANCE ENGINEER Unavailable [phone] Gutierrez Pittman MD Unavailable [phone] Encounter Details Date Type Department Care Team (Late Contact Info) Description 04/30/2018 Procedure Pass BWF Periop 6th floor [address] [place] [address] Social History Tobacco Use Types Packs/Day Years [...] Description 12/25/2024 2:30 PM EDT Office Visit [facility] Infectious Diseases [address] [place] [address] Dana Rucker FNP [address] [address] 01/01/2025 1:00 PM EDT Office Visit [facility] Rehabilitation Services [address] [place] [address] Dana Rucker FNP [address] [address] Nereyda Wong, PT [address] [place] [address] 01/07/2025 2:30 PM EDT Office Visit [facility] [place]monary, Allergy and Critical Care Medicine 10 [facility] [place] [address] Jose Thakur MD [address] [place] [address] 01/19/2025 2:30 PM EDT Office Visit [address] [address] Dana Rucker, ELECTRICAL MAINTENANCE ENGINEER [address] [address] Nereyda Wong, PT [address] [place] [address] 01/26/2025 2:30 PM EDT Office Visit [address] [address] Dana Rucker, ELECTRICAL MAINTENANCE ENGINEER [address] [address] Nereyda Wong, PT [address] [place] [address] 01/29/2025 3:00 PM EDT Office Visit [facility] [address] [place] [address] [place] [address] Keren Poon, [address] [address] 02/01/2025 3:00 PM EDT Office Visit [address] [place] [address] Keren Poon, ORI [address] [address] 03/02/2025 2:30 PM EST [facility] [address] [place] [address] Dana Rucker, [address] [address] Nereyda Wong, PT [address] [place] [address] 03/09/2025 2:30 PM EST [facility] [address] [place] [address] Dana Rucker, [address] [address] Nereyda Wong, PT [address] [place] [address] 03/16/2025 2:30 PM EST Office [facility] [address] [place] [address] Dana Rucker, [address] [address] Nereyda Wong, PT [address] [place] [address] 06/03/2025 2:00 PM EST Office Visit [address] [place] [address] Keren Poon, ORI [address] [place] [address] [email or web address] documented as of this encounter Visit Diagnoses [...] documented as of this encounter Care Teams Practicing Md Anesthesiologist Relationship Specialty Start Date End Date Cheryl Calderon MD [address] [place] [address] PCP - General Family Medicine 04/23/18 08/18/20 Ita Pineda CNP [address] [place] [address] [email or web address] PCP - General Internal Medicine 08/19/20 09/17/22 Chavo Jack MD [address] [place] [address] [email or web address] PCP - General Internal Medicine 09/18/22 01/30/23 Keren Poon CNP [address] [place] [address], 2nd [place] [address] PCP - General Family Medicine 01/31/23 Patrick Sanchez MD [address] [place] [address] [place] [address] [email or web address] Historical LMR Provider 09/10/14 Keren Mabry MD [address] [place] [address] Historical LMR Provider 07/10/18 Louisa Hoagn MD [address] [place] [address] [email or web address] Historical LMR Provider 07/10/1807/29 Charly Saxena DO [address] [place] [address] [email or web address] Historical LMR Provider 07/10/18 08/22/20 Abhinav Muhammad MD [address] [place] [address] [address] [place] [address] [email or web address] Historical LMR Provider 07/10/18 08/22/20 Cheryl Giraldo MEASURING MACHINE OPERATOR [address] [place] [address] [email or web address] Historical LMR Provider 07/10/18 08/22/20 Wilfrido Steel MD [address] [place] [address] [email or web address] Historical LMR Provider 07/10/18 08/22/20 Sharon Martin PA-C 115 [facility]. [address] [place] [address] Historical LMR Provider 07/10/18 08/22/20 Cash Fernandes MD 10 [facility] 2 [place], [place] [id number] [email or web address] Gastroenterology 08/23/20 Seven Menchaca MD 40 [place] [address] [email or web address] Insurance Assigned Provider 08/04/22 08/03/23 Chavo Jack MD [address] [place] [address] [email or web address] Insurance Assigned Provider 08/03/23 05/04/24 Willi Wells MD [address] [place] [address] Rheumatology 02/04/24 Jose Thakur MD [address] [place] [address] [email or web address] Sales Consultant Pulmonary Disease 03/17/24 Dana Rucker FNP 15 [facility], 2nd [place] [address] [email or web address] Nurse Practitioner Infectious Diseases 05/21/24 Jonathan Alvarez MD [address] [place] [address], [address] [place] [address] [email or web address] Urology 05/14/23 Anival Borja MD [address] [place] [address], [address] [place] [address] [email or web address] Neurologist Neurology 01/04/23 Lyndsay Reynoso FNP [address] [place] [address] Nurse Practitioner Pain Medicine 05/27/22 Gutierrez Pittman MD [address] [place] [address] Distance Education Coordinator Cardiology 05/27/24 documented as of this encounter Additional Source Comments The information contained in this document represents components of the legal health record. It is not the complete legal health record.[facility]
--- OUTSIDE RECORDS SUMMARY | 2024-12-23 12:16 | XMS_ITS | Encounter Summary ---
Author Organization [facility] Address [address] [place] [address] Care Team Providers Care Sociology Teacher Name Role Phone Charly Saxena Primary Care Provider [phone] Cheryl Calderon MD Primary Care Provider [phone] Encounter Details Date Type Department Care Team (Late st Contact Info) Description 10/15/2016 Orders Only [facility] Rheumatology [address] [place] [address] Abel Fierro MD [address] [place] [address] Social History Tobacco Use Types Packs/Day Years [...] EDT) C reactive protein 0.19 <0.80 mg/dL [facility] Comment: Please be advised that patients taking Carboxypenicillins may exhibit falsely decreased C-Reactive Protein levels due to an analytical interference in this assay. 10/15/2016 12:3 9 PM EDT 10/15/2016 7:34 PM EDT Narrative Resulting Agency Comment [id number] us Abel Fierro MD LABORATORY Final Result [facility] [address] [place] [address] * ERYTHROCYTE SEDIMENTATION RATE (ESR), KUNAL (10/15/2016 12:39 PM EDT) Sedimentation Rate Westegren (ESR) 11 < OR = 30 mm/h [facility] 10/15/2016 12:3 9 PM EDT 10/15/2016 7:34 PM EDT Narrative Resulting Agency Comment [id number] us Abel Fierro MD LAB SAME DAY RESULT Final Resul t Performing Organization Address [facility] de Phone Number [facility] [address] [place] [address] * CREATININE WITH GLOMERULAR FILTRATION RATE, ESTIMATED (EGFR) (10/15/2016 12:39 PM EDT) Creatinine 0.79 0.50 - 0.99 mg/dL [facility] Comment: For patients >49 years of age, the reference limit for Creatinine is approximately 13% higher for people identified as -Stateless. GFR 81 > OR = 60 mL/min/1. [...] needs for GFR calculation. Resulting Agency Comment [id number] us Abel Fierro MD LAB SAME DAY RESULT Final Resul t Performing Organization Address [facility] Co de Phone Number [facility] [address] [place] [address] * ALANINE AMINOTRANSFERASE (ALT), SERUM (10/15/2016 12:39 PM EDT) ALT (SGPT) 27 6 - 29 U/L [facility] 10/15/2016 12:3 9 PM EDT 10/15/2016 7:34 PM EDT Narrative Resulting Agency Comment [id number] us Abel Fierro MD LAB SAME DAY RESULT Final Resul t Performing Organization Address City/[facility] Co de Phone Number [facility] [address] [place] [address] * ASPARTATE AMINOTRANSFERASE (AST), SERUM (10/15/2016 12:39 PM EDT) AST (SGOT) 25 10 - 35 U/L [facility] 10/15/2016 12:3 9 PM EDT 10/15/2016 7:34 PM EDT Narrative Resulting Agency Comment [id number] us Abel Fierro MD LAB SAME DAY RESULT Final Resul t Performing Organization Address [facility] de Phone Number [facility] [address] [place] [address] * (ABNORMAL) CBC INCLUDES DIFFERENTIAL AND PLATELET [...] 7:34 PM EDT Narrative Resulting Agency Comment [id number] us Abel Fierro MD LAB SAME DAY RESULT Final Resul t [facility] [address] [place] [address] documented in this encounter Visit Diagnoses Diagnosis Rheumatoid arthritis involving multiple sites with positive rheumatoid factor (HCC) [M05.79] documented in this encounter Care Teams Sociology Teacher Relationship Specialty Start Date End Date Charly Saxena [facility] [address] [place] [address] PCP - General Internal Medicine 05/25/13 07/16/17 Cheryl Calderon MD [facility] Medicine [address] [place] [address] PCP - General Internal Medicine 07/17/17 documented as of this encounter
--- OUTSIDE RECORDS SUMMARY | 2024-12-23 12:16 | XMS_ITS | Encounter Summary ---
Author Organization [facility] Address [address] [place] [address] Care Team Providers Care Script Developer Name Role Phone Charly Saxena Primary Care Provider [phone] Cheryl Calderon MD Primary Care Provider [phone] Reason for Visit * Reason Comments E-prescribing Refill Request Encounter Details Date Type Department Care Team ([facility] st Contact Info) Description 03/18/2017 Refill [facility] Rheumatology [address] [place] [address] Abel Fierro MD [address] [place] [address] E-prescribing Refill Request Social History Tobacco Use [...] to send a request for labs to [facility] in [place], [place] Lab request form sent to the [...] Phone 04/18/17 1:30 PM Abel Fierro MD [facility] Rheumatology [phone] 07/15/17 1:00 PM Abel Fierro MD [facility] Rheumatology [phone] Pertinent lab results: No labs suggested for any medication orders signed or pended in this encounter. Refresh if any orders changed. Allergies: Acetaminophen-codeine; Gold; Opioid analgesics; and Sulfa antibiotics BP Readings from Last 1 Encounters: 12/28/16 (!) 149/85 Patient Active Problem List Diagnosis Date Noted ??? Elbow pain 06/03/2012 ??? Rheumatoid arthritis(714.0) ([facility]) 09/29/2010 Followed by rheumatology treated with methotrexate, [...] MOUTH EVERY DAY 0 ??? Nystatin (NYSTOP) 241922 UNIT/GM Powder APPLY TO BUTTOCKS THREE TIMES [...] on filedocumented in this encounter Care Teams Script Developer Relationship Specialty Start Date End Date Charly Saxena [facility] [address] [place] [address] PCP - General Internal Medicine 05/25/13 07/16/17 Cheryl Calderon MD [facility] Medicine [address] [place] [address] PCP - General Internal Medicine 07/17/17 documented as of this encounter
--- OUTSIDE RECORDS SUMMARY | 2024-12-23 12:16 | XMS_ITS | Encounter Summary ---
Author Organization [facility] Address [address] [place] [address] Care Team Providers Care Serology Technician Name Role Phone Alberto Pacheco Primary Care Provider [phone] Charly Saxena Primary Care Provider [phone] Cheryl Calderon MD Primary Care Provider Reason for Visit * Reason Comments E-prescribing Refill Request Encounter Details Date Type Department Care Team (Late st Contact Info) Description 02/05/[address] [facility] Rheumatology [address] [place] [address] Abel Fierro MD [address] [place] [address] E-prescribing Refill Request Social History Tobacco Use [...] on filedocumented in this encounter Care Teams Serology Technician Relationship Specialty Start Date End Date Alberto Pacheco [address] [place] [address] PCP - General 07/19/08 05/24/13 Charly Saxena [facility] [address] [place] [address] PCP - General Internal Medicine 05/25/13 07/16/17 Cheryl Calderon MD Replaced By [facility] Medicine [address] [place] [address] PCP - General Internal Medicine 07/17/17 documented as of this encounter
--- OUTSIDE RECORDS SUMMARY | 2024-12-23 12:16 | XMS_ITS | Encounter Summary ---
Author Organization [facility] Address [address] [place] [address] Care Team Providers Care Php Lamp Developer Name Role Phone Charly Saxena Primary Care Provider Cheryl Calderon MD Primary Care Provider [phone] Encounter Details Date Type Department Care Team (Late st Contact Info) Description 07/15/2017 Orders Only [facility] Rheumatology [address] [place] [address] Abel Fierro MD [address] [place] [address] Social History Tobacco Use Types Packs/Day Years [...] higher for people identified as -Macedonian. GFR 93 > OR = 60 mL/min/1. [...] needs for GFR calculation. Resulting Agency Comment [id number] us Abel Fierro MD LAB SAME DAY RESULT Final Resul t [facility] [address] [place] [address] * ALANINE AMINOTRANSFERASE (ALT), SERUM (07/15/2017 1:44 PM EDT) ALT (SGPT) 23 6 - 29 U/L [facility] 07/15/2017 1:44 PM EDT 07/15/2017 6:18 PM EDT Narrative Resulting Agency Comment [id number] Abel Fierro MD LAB SAME DAY RESULT Final Resul t Performing Organization Address City/[facility]/ZIP Co de Phone Number [facility] [address] [place] [address] * ASPARTATE AMINOTRANSFERASE (AST), SERUM (07/15/2017 1:44 PM EDT) AST (SGOT) 28 10 - 35 U/L [facility] 07/15/2017 1:44 PM EDT 07/15/2017 6:18 PM EDT Narrative Resulting Agency Comment [id number] us Abel Fierro MD LAB SAME DAY RESULT Final Resul t Performing Organization Address [facility] de Phone Number [facility] [address] [place] [address] * (ABNORMAL) CBC INCLUDES DIFFERENTIAL AND PLATELET [...] 6:18 PM EDT Narrative Resulting Agency Comment [id number] us Abel Fierro MD LAB SAME DAY RESULT Final Resul t [facility] [address] [place] [address] documented in this encounter Visit Diagnoses Diagnosis Rheumatoid arthritis involving multiple sites, unspecified rheumatoid factor presence documented in this encounter Care Teams Php Lamp Developer Relationship Specialty Start Date End Date Charly Saxena [facility] [address] [place] [address] PCP - General Internal Medicine 05/25/13 07/16/17 Cheryl Calderon MD [facility] Adult Medicine [address] [place] [address] PCP - General Internal Medicine 07/17/17 documented as of this encounter
--- OUTSIDE RECORDS SUMMARY | 2024-12-23 12:16 | XMS_ITS | Encounter Summary ---
Author Organization [facility] Address [address] [place] [address] Care Team Providers Care Area Development Consultant Name Role Phone Charly Saxena Primary Care Provider [phone] Cheryl Calderon MD Primary Care Provider Encounter Details Date Type Department Care Team (Late st Contact Info) Description 12/28/2016 Orders Only [facility] Rheumatology [address] [place] [address] Abel Fierro MD [address] [place] [address] Social History Tobacco Use Types Packs/Day Years [...] 8:27 PM EDT Narrative Resulting Agency Comment [id number] us Abel Fierro MD LAB SAME DAY RESULT Final Resul t [facility] [address] [place] [address] * ALANINE AMINOTRANSFERASE (ALT), SERUM (12/28/2016 3:13 PM EDT) ALT (SGPT) 29 6 - 29 U/L [facility] 12/28/2016 3:13 PM EDT 12/28/2016 8:27 PM EDT Narrative Resulting Agency Comment [id number] us Abel Fierro MD LAB SAME DAY RESULT Final Resul t [facility] [address] [place] [address] * C-REACTIVE PROTEIN (CRP) - INFLAMMATION (12/28/2016 3:13 PM EDT) C reactive protein 0.24 <0.80 mg/dL [facility] Comment: Please be advised that patients taking Carboxypenicillins may exhibit falsely decreased C-Reactive Protein levels due to an analytical interference in this assay. 12/28/2016 3:13 PM EDT 12/28/2016 8:27 PM EDT Narrative Resulting Agency Comment [id number] Abel Fieror MD LABORATORY Final Result Performing Organization Address [facility] Co de Phone Number [facility] [address] [place] [address] * ERYTHROCYTE SEDIMENTATION RATE (ESR), WESTERGREN (12/28/2016 3:13 PM EDT) Pathologist [facility] Sedimentation Rate [place]ren (ESR) 6 < OR = 30 mm/h [facility] 12/28/2016 3:13 PM EDT 12/28/2016 8:27 PM EDT Narrative Resulting Agency Comment [id number] Abel Fierro MD LAB SAME DAY RESULT Final Resul t Performing Organization Address [facility] Co de Phone Number [facility] [address] [place] [address] * (ABNORMAL) BASIC METABOLIC PANEL WITH (GFR) [...] higher for people identified as -Monegasque. GFR 77 > OR = 60 mL/min/1 [...] needs for GFR calculation. Resulting Agency Comment [id number] us Abel Fierro MD LABORATORY Final Result [facility] [address] [place] [address] * (ABNORMAL) CBC INCLUDES DIFFERENTIAL AND PLATELET [...] 8:27 PM EDT Narrative Resulting Agency Comment [id number] us Abel Fierro MD LAB SAME DAY RESULT Final Resul t [facility] [address] [place] [address] documented in this encounter Visit Diagnoses Diagnosis Rheumatoid arthritis involving multiple sites with positive rheumatoid factor (HCC) documented in this encounter Care Teams Area Development Consultant Relationship Specialty Start Date End Date Charly Saxena [facility] [address] [place] [address] PCP - General Internal Medicine 05/25/13 07/16/17 Cheryl Calderon MD [facility] Adult Medicine [address] [place] [address] PCP - General Internal Medicine 07/17/17 documented as of this encounter
--- OUTSIDE RECORDS SUMMARY | 2024-12-23 12:16 | XMS_ITS | Encounter Summary ---
Author Organization [facility] Address [address] [place] [address] Phone Care Team Providers Care Account Manager Employee Benefits Name Role Phone Cash Fernandes MD Unavailable [phone] Seven Menchaca MD Unavailable Chavo Jack MD Primary Care Provider [phone] Keren Poon [facility] Primary Care Provid er Chavo Jack MD Unavailable Willi Wells MD Unavailable Unavailable Jose Thakur MD Unavailable Dana Rucker EPOXY FABRICATION SUPERVISOR Unavailable Jonathan Alvarez MD Unavailable [phone] Anival Borja MD Unavailable Lyndsay Reynoso EPOXY FABRICATION SUPERVISOR Unavailable [phone] Gutierrez Pittman MD Unavailable [phone] Encounter Details Date Type Department Care Team (Late st Contact Info) Description 10/04/2022 Procedure Pass [facility], [address] [place] [address] Social History Tobacco Use Types Packs/Day Years [...] Description 12/25/2024 2:30 PM EDT Office Visit [facility] Infectious Diseases [address] [place] [address] Dana Rucker FNP [address] [address] 01/01/2025 1:00 PM EDT Office Visit [address] [address] Dana Rucker FNP [address] [address] Nereyda Wong, PT [address] [place] [address] 01/07/2025 2:30 PM EDT Office Visit [facility] 10 [place] [address] Jose Thakur MD 30 [place] [address] 01/19/2025 2:30 PM EDT Office Visit [address] [address] Dana Rucker FNP [address] [address] Nereyda Wong, PT [address] [place] [address] 01/26/2025 2:30 PM EDT Office Visit [address] [address] Dana Rucker, [facility] 15 [facility], [address] [place] [address] Nereyda Wong, PT [address] [place] [address] 01/29/2025 3:00 PM EDT Office Visit [address] [place] [address] Keren Poon, COMPUTER AIDED DESIGN DRAFTER [address] [place] [address] 02/01/2025 3:00 PM EDT Office Visit [address] [place] [address] Keren Poon, COMPUTER AIDED DESIGN DRAFTER [address] [place] [address] 03/02/2025 2:30 PM EST Office Visit [address] [address] Dana Ruckerley, [address], [address] [place] [address] Nereyda Wong, PT [address] [place] [address] 03/09/2025 2:30 PM EST Office Visit [address] [address] Dana Ruckerley, [facility] 15 [facility], [address] [place] [address] Nereyda Wong, PT [address] [place] [address] 03/16/2025 2:30 PM EST Office Visit [facility] [address] [place] [address] Dana Rucker, EPOXY FABRICATION SUPERVISOR 15 [facility], [address] [place] [address] Nereyda Wong, PT [address] [place] [address] 06/03/2025 2:00 PM EST Office Visit [facility] [address] [place] [address] [place] [address] Keren oPon, ORI [address] [facility], [address] [place] [address] [email or web address] [...] as of this encounter Care Teams Account Manager Employee Benefits Relationship Specialty Start Date End Date Chavo Jack MD [address] [place] [address] PCP - General Internal Medicine 09/18/22 01/30/23 Keren Poon CNP [address] [place] [address], 2nd [place] [address] [email or web address] PCP - General Family Medicine 01/31/23 Cash Fernandes MD [address] [place] [address] Gastroenterology 08/23/20 Seven Menchaca MD [address] [place] [address] Insurance Assigned Provider 08/04/22 08/03/23 Chavo Jack MD 40 [place] [address] Insurance Assigned Provider 08/03/23 05/04/24 Willi Wells MD [address] [place] [address] [place] [address] Rheumatology 02/04/24 Jose Thakur MD 30 [place] [address] Pad Machine Operator Pulmonary Disease 03/17/24 Dana Rucker FNP [address] [place] [address] 2nd [place] [address] Nurse Practitioner Infectious Diseases 05/21/24 [place] [address] [place] [address], [address] [place] [address] Urology 05/14/23 Anival Borja MD [address] [place] [address], [address] [place] [address] Neurologist Neurology 01/04/23 Lyndsay Reynoso FNP [address] [place] [address] Nurse Practitioner Pain Medicine 05/27/22 Gutierrez Pittman MD [address] [place] [address] [employer] Grade Teacher Cardiology 05/27/24 documented as of this encounter Additional Source Comments The information contained in this document represents components of the legal health record. It is not the complete legal health record.[facility]
--- OUTSIDE RECORDS SUMMARY | 2024-12-23 12:16 | XMS_ITS | Encounter Summary ---
Author Organization [facility] Address [address] [place] [address] Care Team Providers Care Gas Plant Worker Name Role Phone Alberto Pacheco Primary Care Provider [phone] Charly Saxena Primary Care Provider [phone] Cheryl Calderon MD Primary Care Provider [phone] Encounter Details Date Type Department Care Team (Late st Contact Info) Description 01/18/2009 Orders Only [facility] Rheumatology [address] [place] [address] Abel Fierro MD 5 [place] [address] Social History Tobacco Use Types Packs/Day Years [...] RATE, ESTIMATED (EGFR) Routine 01/18/2009 Rheumatoid Arthritis ([facility]) Encounter for Long-Term (Current) Use of Other Medications SED RATE ESR Routine 01/18/2009 Rheumatoid Arthritis ([facility]) Encounter for Long-Term (Current) Use of Other Medications CBC 5 PART DIFF Routine 01/18/2009 Rheumatoid Arthritis ([facility]) Encounter for Long-Term (Current) Use of Other Medications ALANINE AMINOTRANSFERASE (ALT), SERUM Routine 01/18/2009 Rheumatoid Arthritis ([facility]) Encounter for Long-Term (Current) Use of Other Medications ASPARTATE AMINOTRANSFERASE (AST), SERUM Routine 01/18/2009 Rheumatoid Arthritis ([facility]) Encounter for Long-Term (Current) Use of Other Medications ALBUMIN Routine 01/18/2009 Rheumatoid Arthritis ([facility]) Encounter for Long-Term (Current) Use of [...] LABORATORY Final Result Performing Organization Address City/[facility] Co de Phone Number [facility] [address] [place] [address] * SED RATE ESR (01/18/2009) ESR (ERYTHROCYTE SEDIMENTATION RATE) 5 0 - 30 MM/HR [facility] 01/18/2009 01/18/2009 8:1 8 PM EDT us Abel Fierro MD LAB SAME DAY RESULT Final Resul t Performing Organization Address City/[facility]/ZIP Co de Phone Number [facility] [address] [place] [address] * ALBUMIN (01/18/2009) ALBUMIN 3.8 3.5 - 4.9 G/DL [facility] 01/18/2009 01/18/2009 8:1 8 PM EDT us Abel Fierro MD LAB SAME DAY RESULT Final Resul t Performing Organization Address [facility] de Phone Number [facility] [address] [place] [address] * CREATININE WITH GLOMERULAR FILTRATION RATE, ESTIMATED [...] t Performing Organization Address [facility] de Phone Number [facility] [address] [place] [address] * ALANINE AMINOTRANSFERASE (ALT), SERUM (01/18/2009) ALT (SGPT) 20 6 - 40 U/L [facility] 01/18/2009 01/18/2009 8:1 8 PM EDT us Abel Fierro MD LAB SAME DAY RESULT Final Resul t Performing Organization Address [facility] Co de Phone Number [facility] [address] [place] [address] * ASPARTATE AMINOTRANSFERASE (AST), SERUM (01/18/2009) AST (SGOT) 19 10 - 35 U/L [facility] 01/18/2009 01/18/2009 8:1 8 PM EDT us Abel Fierro MD LAB SAME DAY RESULT Final Resul t [facility] [address] [place] [address] * (ABNORMAL) CBC 5 PART DIFF (01/18/2009) [...] RESULT Final Resul t [facility] [address] [place] [address] documented in this encounter Visit Diagnoses Diagnosis Rheumatoid arthritis(714.0) Rheumatoid arthritis Encounter for long-term (current) use of other medications documented in this encounter Care Teams Gas Plant Worker Relationship Specialty Start Date End Date Alberto Pacheco [address] [place] [address] PCP - General 07/19/08 05/24/13 Charly Saxena [facility] [place] [address] PCP - General Internal Medicine 05/25/13 07/16/17 Cheryl Calderon MD [facility] Adult Medicine [address] [place] [address] PCP - General Internal Medicine 07/17/17 documented as of this encounter
--- OUTSIDE RECORDS SUMMARY | 2024-12-23 12:17 | XMS_ITS | Encounter Summary ---
Author Organization [facility] Address [address] [place] [address] Care Team Providers Care Bounty Trapper Name Role Phone Alberto Pacheco Primary Care Provider [phone] Charly Saxena Primary Care Provider [phone] Cheryl Calderon MD Primary Care Provider [phone] Encounter Details Date Type Department Care Team (Late st Contact Info) Description 04/18/[address] [facility] Rheumatology [address] [place] [address] Abel Fierro MD 5 [place] [address] Social History Tobacco Use Types Packs/Day Years [...] DIAGNOSTICS Comment:{SED RATE BY MODIFIE D WESTERGREN {[id number]) 04/18/2012 1:37 PM EST 04/18/2012 11:16 PM EST Narrative Resulting Agency Comment [id number] us Abel Fierro MD LAB SAME DAY RESULT Final Resul t Performing Organization Address City/State/[facility] Co de Phone Number [facility] [address] [place] [address] * (ABNORMAL) C-REACTIVE PROTEIN (CRP) - INFLAMMATION (04/18/2012 1:37 PM EST) C reactive protein 1.36(H) <0.80 mg/dL [facility] Comment: {C-REACTIVE PROTEIN {[id number]) Please be advised that patients taking Carboxypenicillins may exhibit falsely decreased C-Reactive Protein levels due to an analytical interference in this assay. 04/18/2012 1:37 PM EST 04/18/2012 11:16 PM EST Narrative Resulting Agency Comment [id number] us Abel Fierro MD LABORATORY Final Result Performing Organization Address [facility] Co de Phone Number [facility] [address] [place] [address] * CREATININE WITH GLOMERULAR FILTRATION RATE, ESTIMATED (EGFR) (04/18/2012 1:37 PM EST) Creatinine 0.77 0.50 - 1.05 mg/dL [facility] Comment: {CREATININE {[id number]) For patients >49 years of age, the reference limit for Creatinine is approximately 13% higher for people identified as -Russian. GFR 86 > OR = 60 mL/min/1. 73m2 [facility] Comment:{eGFR NON-AFR. AMERI CAN {[id number]) GFR () 99 > OR = 60 mL/min/1. 73m2 [facility] Comment:{eGFR AMERIC AN {[id number]) 04/18/2012 1:37 PM EST 04/18/2012 11:16 PM [...] needs for GFR calculation. Resulting Agency Comment [id number] us Abel Fierro MD LAB SAME DAY RESULT Final Resul t Performing Organization Address City/[facility] Co de Phone Number [facility] [address] [place] [address] * (ABNORMAL) CBC INCLUDES DIFFERENTIAL AND PLATELET COUNT (04/18/2012 1:37 PM EST) WBC 8.3 3.8 - 10.8 Thousand/ uL [facility] Comment:{WHITE BLOOD CELL CO UNT {[id number]) RBC 5.25(H) 3.80 - 5.10 Million/u L [facility] Comment:{RED BLOOD CELL COUN T {[id number]) Hemoglobin 15.1 11.7 - 15.5 g/dL [facility] Comment:{HEMOGLOBIN {[id number]) Hematocrit 46.5(H) 35.0 - 45.0 % [facility] Comment:{HEMATOCRIT {[id number]) MCV 88.5 80.0 - 100.0 fL [facility] Comment:{MCV {[id number]) MCH 28.7 27.0 - 33.0 pg [facility] Comment:{MCH {[id number]) MCHC 32.5 32.0 - 36.0 g/dL [facility] Comment:{MCHC {[id number]) RDW 13.4 11.0 - 15.0 % [facility] Comment:{RDW {[id number]) PLT 318 140 - 400 Thousand/ uL [facility] Comment:{PLATELET COUNT {[id number]) MPV 8.2 7.5 - 11.5 fL [facility] Comment:{MPV {[id number]) Neutrophils # 4681 1500 - 7800 cells/uL [facility] Comment:{ABSOLUTE NEUTROPHIL S {[id number]) Lymphocytes # 2598 850 - 3900 cells/uL [facility] Comment:{ABSOLUTE LYMPHOCYTE S {[id number]) Monocytes # 805 200 - 950 cells/uL [facility] Comment:{ABSOLUTE MONOCYTES {[id number]) Eosinophils # 199 15 - 500 cells/uL [facility] Comment:{ABSOLUTE EOSINOPHIL S {[id number]) Basophils # 17 0 - 200 cells/uL [facility] Comment:{ABSOLUTE BASOPHILS {[id number]) Neutrophils % 56.4 % [facility] Comment:{NEUTROPHILS {[id number]) Lymphocytes % 31.3 % [facility] Comment:{LYMPHOCYTES {[id number]) Monocytes % 9.7 % [facility] Comment:{MONOCYTES {[id number]) Eosinophils % 2.4 % [facility] Comment:{EOSINOPHILS {[id number]) Basophils % 0.2 % [facility] Comment:{BASOPHILS {[id number]) 04/18/2012 1:37 PM EST 04/18/2012 11:16 PM EST Narrative Resulting Agency Comment [id number] us Abel Fierro MD LAB SAME DAY RESULT Final Resul t Performing Organization Address City/[facility] Co de Phone Number [facility] [address] [place] [address] * ASPARTATE AMINOTRANSFERASE (AST), SERUM (04/18/2012 1:37 PM EST) AST (SGOT) 18 10 - 35 U/L [facility] Comment:{AST {[id number]) 04/18/2012 1:37 PM EST 04/18/2012 11:16 PM EST Narrative Resulting Agency Comment [id number] us Abel Fierro MD LAB SAME DAY RESULT Final Resul t Performing Organization Address [facility] de Phone Number [facility] [address] [place] [address] * ALANINE AMINOTRANSFERASE (ALT), SERUM (04/18/2012 1:37 PM EST) ALT (SGPT) 17 6 - 40 U/L [facility] Comment:{ALT {[id number]) 04/18/2012 1:37 PM EST 04/18/2012 11:16 PM EST Narrative Resulting Agency Comment [id number] us Abel Fierro MD LAB SAME DAY RESULT Final Resul t Performing Organization Address City/[facility] de Phone Number [facility] [address] [place] [address] documented in this encounter Visit Diagnoses Diagnosis Rheumatoid arthritis(714.0) Rheumatoid arthritis documented in this encounter Care Teams Bounty Trapper Relationship Specialty Start Date End Date Alberto Pacheco [address] [place] [address] PCP - General 07/19/08 05/24/13 Charly Saxena [facility] [address] [place] [address] PCP - General Internal Medicine 05/25/13 07/16/17 Cheryl Calderon MD [address] [address] PCP - General Internal Medicine 07/17/17 documented as of this encounter
--- OUTSIDE RECORDS SUMMARY | 2024-12-23 12:17 | XMS_ITS | Encounter Summary ---
Author Organization [facility] Address [address] [place] [address] Care Team Providers Care Newspaper Clipper Name Role Phone Alberto Pacheco Primary Care Provider [phone] Charly Saxena Primary Care Provider [phone] Cheryl Calderon MD Primary Care Provider [phone] Reason for Visit * Reason Comments E-prescribing Refill Request Encounter Details Date Type Department Care Team (Late st Contact Info) Description 08/21/2010 Refill [facility] Rheumatology [address] [place] [address] Abel Fierro MD [address] [place] [address] E-prescribing Refill Request Social History Tobacco Use [...] on filedocumented in this encounter Care Teams Newspaper Clipper Relationship Specialty Start Date End Date Alberto Pacheco [address] [place] [address] PCP - General 07/19/08 05/24/13 Charly Saxena [facility] [address] [place] [address] PCP - General Internal Medicine 05/25/13 07/16/17 Cheryl Calderon MD [facility] Medicine [address] [place] [address] PCP - General Internal Medicine 07/17/17 documented as of this encounter
--- OUTSIDE RECORDS SUMMARY | 2024-12-23 12:17 | XMS_ITS | Encounter Summary ---
Author Organization [facility] Address [address] [place] [address] Care Team Providers Care Welder Setter Electron Beam Machine Name Role Phone Alberto Pacheco Primary Care Provider [phone] Charly Saxena Primary Care Provider [phone] Cheryl Calderon MD Primary Care Provider [phone] Encounter Details Date Type Department Care Team (Late st Contact Info) Description 02/20/2011 Orders Only [facility] Rheumatology [address] [place] [address] Abel Fierro MD [address] [place] [address] Social History Tobacco Use Types Packs/Day Years [...] 0.60 - 1.10 mg/dL [facility] Comment:{CREATININE {[id number]) GFR 82 > OR = 60 mL/min/1.7 3m2 [facility] Comment:{eGFR NON-AFR. AMERI CAN {[id number]) GFR () 96 > OR = 60 mL/min/1.7 3m2 [facility] Comment:{eGFR AMERIC AN {[id number]) 02/20/2011 11:2 4 AM EDT 02/20/2011 7:08 [...] needs for GFR calculation. Resulting Agency Comment [id number] us Abel Fierro MD LAB SAME DAY RESULT Final Resul t [facility] [address] [place] [address] * (ABNORMAL) CBC INCLUDES DIFFERENTIAL AND PLATELET COUNT (02/20/2011 11:24 AM EDT) WBC 7.8 3.8 - 10.8 Thousand/ uL [facility] Comment:{WHITE BLOOD CELL CO UNT {[id number]) RBC 5.43(H) 3.80 - 5.10 Million/u L [facility] Comment:{RED BLOOD CELL COUN T {[id number]) Hemoglobin 15.9(H) 11.7 - 15.5 g/dL [facility] Comment:{HEMOGLOBIN {[id number]) Hematocrit 48.3(H) 35.0 - 45.0 % [facility] Comment:{HEMATOCRIT {[id number]) MCV 89.0 80.0 - 100.0 fL [facility] Comment:{MCV {[id number]) MCH 29.4 27.0 - 33.0 pg [facility] Comment:{MCH {[id number]) MCHC 33.0 32.0 - 36.0 g/dL [facility] Comment:{MCHC {[id number]) RDW 14.3 11.0 - 15.0 % [facility] Comment:{RDW {[id number]) PLT 274 140 - 400 Thousand/ uL [facility] Comment:{PLATELET COUNT {[id number]) MPV 8.3 7.5 - 11.5 fL [facility] Comment:{MPV {[id number]) Neutrophils # 4930 1500 - 7800 cells/uL [facility] Comment:{ABSOLUTE NEUTROPHIL S {[id number]) Lymphocytes # 1919 850 - 3900 cells/uL [facility] Comment:{ABSOLUTE LYMPHOCYTE S {[id number]) Monocytes # 780 200 - 950 cells/uL [facility] Comment:{ABSOLUTE MONOCYTES {[id number]) Eosinophils # 125 15 - 500 cells/uL [facility] Comment:{ABSOLUTE EOSINOPHIL S {[id number]) Basophils # 47 0 - 200 cells/uL [facility] Comment:{ABSOLUTE BASOPHILS {[id number]) Neutrophils % 63.2 % [facility] Comment:{NEUTROPHILS {[id number]) Lymphocytes % 24.6 % [facility] Comment:{LYMPHOCYTES {[id number]) Monocytes % 10.0 % [facility] Comment:{MONOCYTES {[id number]) Eosinophils % 1.6 % [facility] Comment:{EOSINOPHILS {[id number]) Basophils % 0.6 % [facility] Comment:{BASOPHILS {[id number]) 02/20/2011 11:2 4 AM EDT 02/20/2011 7:08 PM EDT Narrative Resulting Agency Comment [id number] us Abel Fierro MD LAB SAME DAY RESULT Final Resul t Performing Organization Address City/[facility] Co de Phone Number [facility] [address] [place] [address] * ASPARTATE AMINOTRANSFERASE (AST), SERUM (02/20/2011 11:24 AM EDT) AST (SGOT) 23 10 - 35 U/L [facility] Comment:{AST {[id number]) 02/20/2011 11:2 4 AM EDT 02/20/2011 7:08 PM EDT Narrative Resulting Agency Comment [id number] us Abel Fierro MD LAB SAME DAY RESULT Final Resul t Performing Organization Address [facility] Co de Phone Number [facility] [address] [place] [address] * ALANINE AMINOTRANSFERASE (ALT), SERUM (02/20/2011 11:24 AM EDT) ALT (SGPT) 25 6 - 40 U/L [facility] Comment:{ALT {[id number]) 02/20/2011 11:2 4 AM EDT 02/20/2011 7:08 PM EDT Narrative Resulting Agency Comment [id number] us Abel Fierro MD LAB SAME DAY RESULT Final Resul t Performing Organization Address City/[facility] Co de Phone Number [facility] [address] [place] [address] documented in this encounter Visit Diagnoses Diagnosis Rheumatoid arthritis(714.0) Rheumatoid arthritis documented in this encounter Care Teams Welder Setter Electron Beam Machine Relationship Specialty Start Date End Date Alberto Pacheco [address] [place] [address] PCP - General 07/19/08 05/24/13 Charly Saxena [facility] [address] [place] [address] PCP - General Internal Medicine 05/25/13 07/16/17 Cheryl Calderon MD [facility] Medicine [address] [place] [address] PCP - General Internal Medicine 07/17/17 documented as of this encounter
--- OUTSIDE RECORDS SUMMARY | 2024-12-23 12:17 | XMS_ITS | Encounter Summary ---
Author Organization [facility] Address [address] [place] [address] Care Team Providers Care Auto Mechanics Instructor Name Role Phone Alberto Pacheco Primary Care Provider [phone] Charly Saxena Primary Care Provider [phone] Cheryl Calderon MD Primary Care Provider [phone] Encounter Details Date Type Department Care Team (Late st Contact Info) Description 08/15/2011 Orders Only [facility] Rheumatology [address] [place] [address] Abel Fierro MD [address] [place] [address] Social History Tobacco Use Types Packs/Day Years [...] as of this encounter Progress Notes * Nieyc Salazar - 08/20/2011 4:22 PM EDTQuick Note: [...] this encounter Procedures * Due to [place] [employer] law, this organization might not be sharing negative HIV tests. Procedure Name Priority Date/Time Associated Diagnosis Comments C-REACTIVE PROTEIN (CRP) - INFLAMMATION Routine 08/15/2011 10:22 AM EDT Rheumatoid arthritis (HCC) ERYTHROCYTE SEDIMENTATION RATE (ESR) Routine 08/15/2011 10:22 AM EDT Rheumatoid arthritis ([facility]) CBC INCLUDES DIFFERENTIAL AND PLATELET COUNT Routine 08/15/2011 10:22 AM EDT Rheumatoid arthritis ([facility]) ALANINE AMINOTRANSFERASE (ALT), SERUM Routine 08/15/2011 10:22 AM EDT Rheumatoid arthritis ([facility]) ASPARTATE AMINOTRANSFERASE (AST), SERUM Routine 08/15/2011 10:22 AM EDT Rheumatoid arthritis ([facility]) CREATININE WITH GLOMERULAR FILTRATION RATE, ESTIMATED (EGFR) Routine 08/15/2011 10:22 AM EDT Rheumatoid arthritis ([facility]) documented in this encounter Results * Due to [place] [employer] law, this organization might not be sharing negative HIV tests. * ERYTHROCYTE SEDIMENTATION RATE (ESR)KUNAL (08/15/2011 10:22 AM EDT) Sedimentation Rate Rockegren (ESR) 6 < OR = 30 mm/h [facility] Comment:{SED RATE BY JONATHAN SYED {[id number]) 08/15/2011 10:2 2 AM EDT 08/15/2011 5:01 PM EDT Narrative Resulting Agency Comment [id number] us Abel Fierro MD LAB SAME DAY RESULT Final Resul t Performing Organization Address [facility] Co de Phone Number [facility] [address] [place] [address] * C-REACTIVE PROTEIN (CRP) - INFLAMMATION (08/15/2011 10:22 AM EDT) C reactive protein 0.15 <0.80 mg/dL [facility] Comment: {C-REACTIVE PROTEIN {[id number]) Please be advised that patients taking Carboxypenicillins may exhibit falsely decreased C-Reactive Protein levels due to an analytical interference in this assay. 08/15/2011 10:2 2 AM EDT 08/15/2011 5:01 PM EDT Narrative Resulting Agency Comment [id number] us Abel Fierro MD LABORATORY Final Result Performing Organization Address [facility] Co de Phone Number [facility] [address] [place] [address] * CREATININE WITH GLOMERULAR FILTRATION RATE, ESTIMATED (EGFR) (08/15/2011 10:22 AM EDT) Creatinine 0.87 0.50 - 1.05 mg/dL [facility] Comment: {CREATININE {[id number]) For patients >49 years of age, the reference limit for Creatinine is approximately 13% higher for people identified as -Italian. GFR 74 > OR = 60 mL/min/1. 73m2 [facility] Comment:{eGFR NON-AFR. AMERI CAN {[id number]) GFR () 86 > OR = 60 mL/min/1. 73m2 [facility] Comment:{eGFR AMERIC AN {[id number]) 08/15/2011 10:2 2 AM EDT 08/15/2011 5:01 [...] needs for GFR calculation. Resulting Agency Comment [id number] us Abel Fierro MD LAB SAME DAY RESULT Final Resul t [facility] [address] [place] [address] * (ABNORMAL) CBC INCLUDES DIFFERENTIAL AND PLATELET COUNT (08/15/2011 10:22 AM EDT) WBC 7.5 3.8 - 10.8 Thousand/ uL [facility] Comment:{WHITE BLOOD CELL CO UNT {[id number]) RBC 5.26(H) 3.80 - 5.10 Million/u L [facility] Comment:{RED BLOOD CELL COUN T {[id number]) Hemoglobin 14.6 11.7 - 15.5 g/dL [facility] Comment:{HEMOGLOBIN {[id number]) Hematocrit 44.5 35.0 - 45.0 % [facility] Comment:{HEMATOCRIT {[id number]) MCV 84.7 80.0 - 100.0 fL [facility] Comment:{MCV {[id number]) MCH 27.8 27.0 - 33.0 pg [facility] Comment:{MCH {[id number]) MCHC 32.8 32.0 - 36.0 g/dL [facility] Comment:{MCHC {[id number]) RDW 14.8 11.0 - 15.0 % [facility] Comment:{RDW {[id number]) PLT 238 140 - 400 Thousand/ uL [facility] Comment:{PLATELET COUNT {[id number]) MPV 8.4 7.5 - 11.5 fL [facility] Comment:{MPV {[id number]) Neutrophils # 4643 1500 - 7800 cells/uL [facility] Comment:{ABSOLUTE NEUTROPHIL S {[id number]) Lymphocytes # 2265 850 - 3900 cells/uL [facility] Comment:{ABSOLUTE LYMPHOCYTE S {[id number]) Monocytes # 360 200 - 950 cells/uL [facility] Comment:{ABSOLUTE MONOCYTES {[id number]) Eosinophils # 203 15 - 500 cells/uL [facility] Comment:{ABSOLUTE EOSINOPHIL S {[id number]) Basophils # 30 0 - 200 cells/uL [facility] Comment:{ABSOLUTE BASOPHILS {[id number]) Neutrophils % 61.9 % [facility] Comment:{NEUTROPHILS {[id number]) Lymphocytes % 30.2 % [facility] Comment:{LYMPHOCYTES {[id number]) Monocytes % 4.8 % [facility] Comment:{MONOCYTES {[id number]) Eosinophils % 2.7 % [facility] Comment:{EOSINOPHILS {[id number]) Basophils % 0.4 % [facility] Comment:{BASOPHILS {[id number]) 08/15/2011 10:2 2 AM EDT 08/15/2011 5:01 PM EDT Narrative Resulting Agency Comment [id number] us Abel Fierro MD LAB SAME DAY RESULT Final Resul t Performing Organization Address City/[facility] Co de Phone Number [facility] [address] [place] [address] * ALANINE AMINOTRANSFERASE (ALT), SERUM (08/15/2011 10:22 AM EDT) ALT (SGPT) 25 6 - 40 U/L [facility] Comment:{ALT {[id number]) 08/15/2011 10:2 2 AM EDT 08/15/2011 5:01 PM EDT Narrative Resulting Agency Comment [id number] us Abel Fierro MD LAB SAME DAY RESULT Final Resul t Performing Organization Address City/[facility]/ZIP Co de Phone Number [facility] [address] [place] [address] * ASPARTATE AMINOTRANSFERASE (AST), SERUM (08/15/2011 10:22 AM EDT) AST (SGOT) 25 10 - 35 U/L [facility] Comment:{AST {[id number]) 08/15/2011 10:2 2 AM EDT 08/15/2011 5:01 PM EDT Narrative Resulting Agency Comment [id number] us Abel Fierro MD LAB SAME DAY RESULT Final Resul t [facility] [address] [place] [address] documented in this encounter Visit Diagnoses Diagnosis Rheumatoid arthritis(714.0) Rheumatoid arthritis documented in this encounter Care Teams Auto Mechanics Instructor Relationship Specialty Start Date End Date Alberto Pacheco [address] [place] [address] PCP - General 07/19/08 05/24/13 Charly Saxena [facility] [address] [place] [address] PCP - General Internal Medicine 05/25/13 07/16/17 Cheryl Calderon MD [facility] Medicine [address] [place] [address] PCP - General Internal Medicine 07/17/17 documented as of this encounter
--- OUTSIDE RECORDS SUMMARY | 2024-12-23 12:17 | XMS_ITS | Encounter Summary ---
Author Organization [facility] Address [address] [place] [address] Care Team Providers Care Blade Grinder Name Role Phone Alberto Pacheco Primary Care Provider [phone] Charly Saxena Primary Care Provider Cheryl Calderon MD Primary Care Provider [phone] Encounter Details Date Type Department Care Team (Late st Contact Info) Description 10/18/2011 Orders Only [facility] Rheumatology [address] [place] [address] Abel Fierro MD [address] [place] [address] Social History Tobacco Use Types Packs/Day Years [...] - 1.05 mg/dL [facility] Comment: {CREATININE {[id number]) For patients >49 years of age, the reference limit for Creatinine is approximately 13% higher for people identified as -Somali. GFR 80 > OR = 60 mL/min/1. 73m2 [facility] Comment:{eGFR NON-AFR. AMERI CAN {[id number]) GFR () 93 > OR = 60 mL/min/1. 73m2 [facility] Comment:{eGFR AMERIC AN {[id number]) 10/18/2011 4:28 PM EDT 10/18/2011 8:48 PM [...] needs for GFR calculation. Resulting Agency Comment [id number] us Abel Fierro MD LAB SAME DAY RESULT Final Resul t [facility] [address] [place] [address] * ALANINE AMINOTRANSFERASE (ALT), SERUM (10/18/2011 4:28 PM EDT) ALT (SGPT) 24 6 - 40 U/L [facility] Comment:{ALT {[id number]) 10/18/2011 4:28 PM EDT 10/18/2011 8:48 PM EDT Narrative Resulting Agency Comment [id number] Abel Fierro MD LAB SAME DAY RESULT Final Resul t Performing Organization Address City/[facility] Co de Phone Number [facility] [address] [place] [address] * ASPARTATE AMINOTRANSFERASE (AST), SERUM (10/18/2011 4:28 PM EDT) Pathologist [facility] AST (SGOT) 27 10 - 35 U/L [facility] Comment:{AST {[id number]) 10/18/2011 4:28 PM EDT 10/18/2011 8:48 PM EDT Narrative Resulting Agency Comment [id number] Abel Fierro MD LAB SAME DAY RESULT Final Resul t Performing Organization Address [facility] de Phone Number [facility] [address] [place] [address] * (ABNORMAL) CBC INCLUDES DIFFERENTIAL AND PLATELET COUNT (10/18/2011 4:28 PM EDT) Pathologist [facility] WBC 7.2 3.8 - 10.8 Thousand/ uL [facility] Comment:{WHITE BLOOD CELL CO UNT {[id number]) RBC 5.34(H) 3.80 - 5.10 Million/u L [facility] Comment:{RED BLOOD CELL COUN T {[id number]) Hemoglobin 15.0 11.7 - 15.5 g/dL [facility] Comment:{HEMOGLOBIN {[id number]) Hematocrit 46.3(H) 35.0 - 45.0 % [facility] Comment:{HEMATOCRIT {[id number]) MCV 86.6 80.0 - 100.0 fL [facility] Comment:{MCV {[id number]) MCH 28.1 27.0 - 33.0 pg [facility] Comment:{MCH {[id number]) MCHC 32.5 32.0 - 36.0 g/dL [facility] Comment:{MCHC {[id number]) RDW 14.4 11.0 - 15.0 % [facility] Comment:{RDW {[id number]) PLT 254 140 - 400 Thousand/ uL [facility] Comment:{PLATELET COUNT {[id number]) MPV 8.4 7.5 - 11.5 fL [facility] Comment:{MPV {[id number]) Neutrophils # 3226 1500 - 7800 cells/uL [facility] Comment:{ABSOLUTE NEUTROPHIL S {[id number]) Lymphocytes # 2988 850 - 3900 cells/uL [facility] Comment:{ABSOLUTE LYMPHOCYTE S {[id number]) Monocytes # 893 200 - 950 cells/uL [facility] Comment:{ABSOLUTE MONOCYTES {[id number]) Eosinophils # 65 15 - 500 cells/uL [facility] Comment:{ABSOLUTE EOSINOPHIL S {[id number]) Basophils # 29 0 - 200 cells/uL [facility] Comment:{ABSOLUTE BASOPHILS {[id number]) Neutrophils % 44.8 % [facility] Comment:{NEUTROPHILS {[id number]) Lymphocytes % 41.5 % [facility] Comment:{LYMPHOCYTES {[id number]) Monocytes % 12.4 % [facility] Comment:{MONOCYTES {[id number]) Eosinophils % 0.9 % [facility] Comment:{EOSINOPHILS {[id number]) Basophils % 0.4 % [facility] Comment:{BASOPHILS {[id number]) 10/18/2011 4:28 PM EDT 10/18/2011 8:48 PM EDT Narrative Resulting Agency Comment [id number] us Abel Fierro MD LAB SAME DAY RESULT Final Resul t [facility] [address] [place] [address] documented in this encounter Visit Diagnoses Diagnosis Rheumatoid arthritis(714.0) Rheumatoid arthritis documented in this encounter Care Teams Blade Grinder Relationship Specialty Start Date End Date Alberto Pacheco [address] [place] [address] PCP - General 07/19/08 05/24/13 Charly Saxena [facility] [address] [place] [address] PCP - General Internal Medicine 05/25/13 07/16/17 Cheryl Calderon MD [facility] Adult Medicine [address] [place] [address] PCP - General Internal Medicine 07/17/17 documented as of this encounter
--- OUTSIDE RECORDS SUMMARY | 2024-12-23 12:17 | XMS_ITS | Encounter Summary ---
Author Organization [facility] Address [address] [place] [address] Phone Care Team Providers Care Mill Laborer Name Role Phone Cash Fernandes MD Unavailable [phone] Keren Poon [facility] Primary Care Provid er Willi Wells MD Unavailable Unavailable Jose Thakur MD Unavailable [phone] Dana Rucker RESPITE WORKER Unavailable Jonathan Alvarez MD Unavailable [phone] Anival Borja MD Unavailable Lyndsay Reynoso RESPITE WORKER Unavailable [phone] Gutierrez Pittman MD Unavailable [phone] Encounter Details Date Type Department Care Team (Late st Contact Info) Description 07/10/2024 Procedure Pass [facility], Ct Scan - [address] [address] Social History Tobacco Use Types Packs/Day Years [...] 6:28 AM EDT Cecy العراقي RN * [place] Suicide Severity Rating Scale (Screener/Recent Self-Report) Question [...] PM EDT Office Visit [facility] Infectious Diseases [address] [place] [address] Dana Rucker FNP [address] [address] 01/01/2025 1:00 PM EDT Office Visit [facility] [address] [place] [address] Dana Rucker FNP 15 [facility], [address] [place] [address] Nereyda Wong, PT [address] [place] [address] 01/07/2025 2:30 PM EDT Office Visit [facility] Pulmonary, Allergy and Critical Care Medicine 10 [facility][1] [place] [address] Jose Thakur MD [address] [place] [address] 01/19/2025 2:30 PM EDT Office Visit [facility] [address] [place] [address] Darnellens Dana Leslee, [facility] [address] [address] Nereyda Wong, PT [address] [place] [address] 01/26/2025 2:30 PM EDT Office Visit [facility] [address] [place] [address] Dana Rucker, [address] [address] Nereyda Wong, PT [address] [place] [address] 01/29/2025 3:00 PM EDT Office Visit [address] [place] [address] Keren Poon, MILL LABORER [address] [address] 02/01/2025 3:00 PM EDT Office Visit [address] [place] [address] Keren Poon, ORI [address] [address] 03/02/2025 2:30 PM EST Office Visit [facility] [address] [place] [address] Dana Rucker, [facility] [address] [address] Nereyda Wong, PT [address] [place] [address] 03/09/2025 2:30 PM EST Office Visit [facility] [address] [place] [address] Dana Rucker, [facility] [address] [address] Nereyda Wong, PT [address] [place] [address] 03/16/2025 2:30 PM EST Office Visit [facility] [address] [place] [address] Dana Rucker, [address] [address] Nereyda Wong, PT [address] [place] [address] 06/03/2025 2:00 PM EST Office Visit [facility] Medical [facility] [address] [place] [address] [place] [address] Keren Poon, ORI [address] [place] [address] [email or web address] documented as of this encounter Visit Diagnoses [...] documented as of this encounter Care Teams Mill Laborer Relationship Specialty Start Date End Date Keren Poon CNP [address] [place] [address] [email or web address] PCP - General Family Medicine 01/31/23 Cash Fernandes MD [address] [place] [address] [email or web address] Gastroenterology 08/23/20 Willi Wells MD [address] [place] [address] [place] [address] Rheumatology 02/04/24 Jose Thakur MD [address] [place] [address] [email or web address] Student Career Development Specialist Pulmonary Disease 03/17/24 Dana Rucker FNP [address] [address] [email or web address] Nurse Practitioner Infectious Diseases 05/21/24 [place] [address] [place] [address], [address] [place] [address] [email or web address] Urology 05/14/23 Anival Borja MD [address] [place] [address], [address] [place] [address] [email or web address] Neurologist Neurology 01/04/23 Lyndsay Reynoso FNP [address] [place] [address] Nurse Practitioner Pain Medicine 05/27/22 Gutierrez Pittman MD [address] [place] [address] Tour Conductor Cardiology 05/27/24 documented as of this encounter Additional Source Comments The information contained in this document represents components of the legal health record. It is not the complete legal health record.[facility]
--- OUTSIDE RECORDS SUMMARY | 2024-12-23 12:17 | XMS_ITS | Encounter Summary ---
Author Organization [facility] Address [address] [place] [address] Care Team Providers Care Employee Relation Manager Name Role Phone Alberto Pacheco Primary Care Provider [phone] Charly Saxena Primary Care Provider [phone] Cheryl Calderon MD Primary Care Provider [phone] Encounter Details Date Type Department Care Team (Late st Contact Info) Description 05/29/2010 Orders Only [facility] Rheumatology [address] [place] [address] Abel Fierro MD [address] [place] [address] Social History Tobacco Use Types Packs/Day Years [...] RESULT Final Resul t Performing Organization Address City/[facility] Co de Phone Number [facility] [address] [place] [address] * C-REACTIVE PROTEIN (CRP), QUANTITATIVE, SERUM INFLAMMATION (05/29/2010) Pathologist [facility] C REACTIVE PROTEIN (CRP) 0.2 0 - 0.7 MG/DL [facility] 05/29/2010 05/29/2010 8:2 8 PM EST Abel Fierro MD LABORATORY Final Result Performing Organization Address [facility] [place]/[facility] Co de Phone Number [facility] [address] [place] [address] * CREATININE WITH GLOMERULAR FILTRATION RATE, ESTIMATED [...] RESULT Final Resul t [facility] [address] [place] [address] * (ABNORMAL) CBC 5 PART DIFF (05/29/2010) [...] RESULT Final Resul t Performing Organization Address City/[facility] Co de Phone Number [facility] [address] [place] [address] * ASPARTATE AMINOTRANSFERASE (AST), SERUM (05/29/2010) AST (SGOT) 21 10 - 35 U/L [facility] 05/29/2010 05/29/2010 8:2 8 PM EST us Abel Fierro MD LAB SAME DAY RESULT Final Resul t Performing Organization Address [facility] [place]/[facility] Co de Phone Number [facility] [address] [place] [address] * ALANINE AMINOTRANSFERASE (ALT), SERUM (05/29/2010) ALT (SGPT) 27 6 - 40 U/L [facility] 05/29/2010 05/29/2010 8:2 8 PM EST us Abel Fierro MD LAB SAME DAY RESULT Final Resul t Performing Organization Address [facility] [place]/[facility] de Phone Number [facility] [address] [place] [address] documented in this encounter Visit Diagnoses Diagnosis Rheumatoid arthritis(714.0) Rheumatoid arthritis documented in this encounter Care Teams Employee Relation Manager Relationship Specialty Start Date End Date Alberto Pacheco [address] [place] [address] PCP - General 07/19/08 05/24/13 Charly Saxena [facility] [place] [address] PCP - General Internal Medicine 05/25/13 07/16/17 Cheryl Calderon MD [facility] Medicine [address] [place] [address] PCP - General Internal Medicine 07/17/17 documented as of this encounter
--- OUTSIDE RECORDS SUMMARY | 2024-12-23 12:17 | XMS_ITS | Encounter Summary ---
Author Organization [facility] Address [address] [place] [address] Care Team Providers Care Machine Clothing Replacer Name Role Phone Alberto Pacheco Primary Care Provider [phone] Charly Saxena Primary Care Provider [phone] Cheryl Calderon MD Primary Care Provider [phone] Encounter Details Date Type Department Care Team (Late st Contact Info) Description 01/23/2010 Orders Only [facility] Rheumatology [address] [place] [address] Abel Fierro MD [address] [place] [address] Social History Tobacco Use Types Packs/Day Years [...] RESULT Final Resul t Performing Organization Address City/[facility]/ZIP Co de Phone Number [facility] [address] [place] [address] * (ABNORMAL) C-REACTIVE PROTEIN (CRP), QUANTITATIVE, SERUM INFLAMMATION (01/23/2010) Pathologist [facility] C REACTIVE PROTEIN (CRP) 1.5(H) 0 - 0.7 MG/DL [facility] 01/23/2010 01/23/2010 9:1 6 PM EDT Abel Fierro MD LABORATORY Final Result Performing Organization Address City/[facility]/ZIP Co de Phone Number [facility] [address] [place] [address] * CREATININE WITH GLOMERULAR FILTRATION RATE, ESTIMATED [...] RESULT Final Resul t [facility] [address] [place] [address] * (ABNORMAL) CBC 5 PART DIFF (01/23/2010) [...] Final Resul t Performing Organization Address [facility] de Phone Number [facility] [address] [place] [address] * ASPARTATE AMINOTRANSFERASE (AST), SERUM (01/23/2010) AST (SGOT) 23 10 - 35 U/L [facility] 01/23/2010 01/23/2010 9:1 6 PM EDT us Abel Fierro MD LAB SAME DAY RESULT Final Resul t Performing Organization Address [facility] de Phone Number [facility] [address] [place] [address] * ALANINE AMINOTRANSFERASE (ALT), SERUM (01/23/2010) ALT (SGPT) 26 6 - 40 U/L [facility] 01/23/2010 01/23/2010 9:1 6 PM EDT us Abel Fierro MD LAB SAME DAY RESULT Final Resul t Performing Organization Address [facility] de Phone Number [facility] [address] [place] [address] documented in this encounter Visit Diagnoses Diagnosis Rheumatoid arthritis(714.0)- Primary Rheumatoid arthritis documented in this encounter Care Teams Machine Clothing Replacer Relationship Specialty Start Date End Date Alberto Pacheco [address] [place] [address] PCP - General 07/19/08 05/24/13 Charly Saxena [facility] [address] [place] [address] PCP - General Internal Medicine 05/25/13 07/16/17 Cheryl Calderon MD [facility] Medicine [address] [place] [address] PCP - General Internal Medicine 07/17/17 documented as of this encounter
--- OUTSIDE RECORDS SUMMARY | 2024-12-23 12:17 | XMS_ITS | Encounter Summary ---
Author Organization [facility] Address [address] [place] [address] Care Team Providers Care Burnt Lime Drawer Name Role Phone Alberto Pacheco Primary Care Provider [phone] Charly Saxena Primary Care Provider [phone] Cheryl Calderon MD Primary Care Provider [phone] Encounter Details Date Type Department Care Team (Late st Contact Info) Description 04/14/2010 Orders Only [facility] Rheumatology [address] [place] [address] Deepti Estes GNP Social History Tobacco Use [...] precise needs for GFR calculation. Deepti Estes [facility] DAY RESULT Elana l Result Performing Organization Address [facility] de Phone Number [facility] [address] [place] [address] * ALANINE AMINOTRANSFERASE (ALT), SERUM (04/14/2010) ALT (SGPT) 28 6 - 40 U/L [facility] 04/14/2010 04/14/2010 11: 35 PM EST Deepti Estes [facility] SAME [facility] RESULT Elana l Result Performing Organization Address [facility] Co de Phone Number [facility] [address] [place] [address] * ASPARTATE AMINOTRANSFERASE (AST), SERUM (04/14/2010) AST (SGOT) 24 10 - 35 U/L [facility] 04/14/2010 04/14/2010 11: 35 PM EST Deepti Estes [facility] SAME DAY RESULT Elana l Result [facility] [address] [place] [address] * (ABNORMAL) CBC 5 PART DIFF (04/14/2010) [...] 04/14/2010 11: 35 PM EST Deepti Estes [facility] SAME DAY RESULT Elana l Result [facility] [address] [place] [address] documented in this encounter Visit Diagnoses Diagnosis Rheumatoid arthritis(714.0) Rheumatoid arthritis documented in this encounter Care Teams Burnt Lime Drawer Relationship Specialty Start Date End Date Alberto Pacheco [address] [place] [address] PCP - General 07/19/08 05/24/13 Charly Saxena [facility] [place] [address] PCP - General Internal Medicine 05/25/13 07/16/17 Cheryl Calderon MD [facility] Adult Medicine [address] [place] [address] PCP - General Internal Medicine 07/17/17 documented as of this encounter
--- OUTSIDE RECORDS SUMMARY | 2024-12-23 12:17 | XMS_ITS | Encounter Summary ---
Author Organization [facility] Address [address] [place] [address] Care Team Providers Care District Court Bailiff Name Role Phone Alberto Pacheco Primary Care Provider [phone] Charly Saxena Primary Care Provider Cheryl Calderon MD Primary Care Provider [phone] Encounter Details Date Type Department Care Team (Late st Contact Info) Description 12/06/2009 Orders Only [facility] Rheumatology [address] [place] [address] Abel Fierro MD [address] [place] [address] Social History Tobacco Use Types Packs/Day Years [...] Co de Phone Number [facility] [address] [place] [address] * (ABNORMAL) CBC 5 PART DIFF (12/06/2009) [...] Resul t Performing Organization Address [facility] de Phone Number [facility] [address] [place] [address] * ASPARTATE AMINOTRANSFERASE (AST), SERUM (12/06/2009) AST (SGOT) 18 10 - 35 U/L [facility] 12/06/2009 12/06/2009 9:4 5 PM EDT Abel Fierro MD LAB SAME DAY RESULT Final Resul t Performing Organization Address [facility] de Phone Number [facility] [address] [place] [address] * ALANINE AMINOTRANSFERASE (ALT), SERUM (12/06/2009) ALT (SGPT) 23 6 - 40 U/L [facility] 12/06/2009 12/06/2009 9:4 5 PM EDT Abel Fierro MD LAB SAME DAY RESULT Final Resul t Performing Organization Address [facility] de Phone Number [facility] [address] [place] [address] documented in this encounter Visit Diagnoses Diagnosis Rheumatoid arthritis(714.0) Rheumatoid arthritis documented in this encounter Care Teams District Court Bailiff Relationship Specialty Start Date End Date Alberto Pacheco [address] [place] [address] PCP - General 07/19/08 05/24/13 Charly Saxena [facility] [address] [place] [address] PCP - General Internal Medicine 05/25/13 07/16/17 Cheryl Calderon MD [facility] [address] [place] [address] PCP - General Internal Medicine 07/17/17 documented as of this encounter
--- OUTSIDE RECORDS SUMMARY | 2024-12-23 12:17 | XMS_ITS | Encounter Summary ---
Author Organization [facility] Address [address] [place] [address] Care Team Providers Care Urologic Surgeon Name Role Phone Alberto Pacheco Primary Care Provider [phone] Charly Saxena Primary Care Provider [phone] Cheryl Calderon MD Primary Care Provider [phone] Encounter Details Date Type Department Care Team (Late st Contact Info) Description 08/21/2010 Orders Only [facility] Rheumatology [address] [place] [address] Abel Fierro MD [address] [place] [address] Social History Tobacco Use Types Packs/Day Years [...] t Performing Organization Address [facility] Co de Phone Number [facility] [address] [place] [address] * ALANINE AMINOTRANSFERASE (ALT), SERUM (08/21/2010) ALT (SGPT) 37 6 - 40 U/L [facility] 08/21/2010 08/21/2010 9:0 1 PM EDT us Abel Fierro MD LAB SAME DAY RESULT Final Resul t Performing Organization Address City/[facility] Co de Phone Number [facility] [address] [place] [address] * ASPARTATE AMINOTRANSFERASE (AST), SERUM (08/21/2010) AST (SGOT) 27 10 - 35 U/L [facility] 08/21/2010 08/21/2010 9:0 1 PM EDT us Abel Fierro MD LAB SAME DAY RESULT Final Resul t Performing Organization Address City/[facility]/ZIP Co de Phone Number [facility] [address] [place] [address] * (ABNORMAL) CBC 5 PART DIFF (08/21/2010) [...] Co de Phone Number [facility] [address] [place] [address] documented in this encounter Visit Diagnoses Diagnosis Rheumatoid arthritis(714.0) Rheumatoid arthritis documented in this encounter Care Teams Urologic Surgeon Relationship Specialty Start Date End Date Alberto Pacheco [address] [place] [address] PCP - General 07/19/08 05/24/13 Charly Saxena [facility] [address] [place] [address] PCP - General Internal Medicine 05/25/13 07/16/17 Cheryl Calderon MD [facility] [address] [place] [address] PCP - General Internal Medicine 07/17/17 documented as of this encounter
--- OUTSIDE RECORDS SUMMARY | 2024-12-23 12:17 | XMS_ITS | Encounter Summary ---
Author Organization [facility] Address [address] [place] [address] Care Team Providers Care Drupal Php Developer Name Role Phone Alberto Pacheco Primary Care Provider [phone] Charly Saxena Primary Care Provider [phone] Cheryl Calderon MD Primary Care Provider [phone] Encounter Details Date Type Department Care Team (Late st Contact Info) Description 05/13/2009 Orders Only [facility] Rheumatology [address] [place] [address] Abel Fierro MD [address] [place] [address] Social History Tobacco Use Types Packs/Day Years [...] MD LABORATORY Final Result [facility] [address] [place] [address] * SED RATE ESR (05/13/2009) ESR (ERYTHROCYTE SEDIMENTATION RATE) 19 0 - 30 MM/HR [facility] 05/13/2009 05/13/2009 8:0 1 PM EST us Abel Fierro MD LAB SAME DAY RESULT Final Resul t Performing Organization Address [facility] de Phone Number [facility] [address] [place] [address] * ALANINE AMINOTRANSFERASE (ALT), SERUM (05/13/2009) ALT (SGPT) 22 6 - 40 U/L [facility] 05/13/2009 05/13/2009 8:0 1 PM EST us Abel Fierro MD LAB SAME DAY RESULT Final Resul t Performing Organization Address [facility] Phone Number [facility] [address] [place] [address] * ASPARTATE AMINOTRANSFERASE (AST), SERUM (05/13/2009) AST (SGOT) 21 10 - 35 U/L [facility] 05/13/2009 05/13/2009 8:0 1 PM EST us Abel Fierro MD LAB SAME DAY RESULT Final Resul t Performing Organization Address [facility] Phone Number [facility] [address] [place] [address] * (ABNORMAL) CBC 5 PART DIFF (05/13/2009) [...] RESULT Final Resul t [facility] [address] [place] [address] documented in this encounter Visit Diagnoses Diagnosis Rheumatoid arthritis(714.0) Rheumatoid arthritis documented in this encounter Care Teams Drupal Php Developer Relationship Specialty Start Date End Date Alberto Pacheco [address] [place] [address] PCP - General 07/19/08 05/24/13 Charly Saxena [facility] [address] [place] [address] PCP - General Internal Medicine 05/25/13 07/16/17 Cheryl Calderon MD [facility] Adult Medicine [address] [place] [address] PCP - General Internal Medicine 07/17/17 documented as of this encounter
--- OUTSIDE RECORDS SUMMARY | 2024-12-23 12:17 | XMS_ITS | Encounter Summary ---
Author Organization [facility] Address [address] [place] [address] Phone Care Team Providers Care Finance Executive Name Role Phone Cash Fernandes MD Unavailable [phone] Keren Poon [facility] Primary Care Provid er Chavo Jack MD Unavailable Willi Wells MD Unavailable Unavailable Jose Thakur MD Unavailable [phone] Dana Rucker ASSOCIATE PRODUCT INTEGRITY ENGINEER Unavailable Jonathan Alvarez MD Unavailable [phone] Anival Borja MD Unavailable [phone] Lyndsay Reynoso ASSOCIATE PRODUCT INTEGRITY ENGINEER Unavailable Gutierrez Pittman MD Unavailable [phone] Encounter Details Date Type Department Care Team (Late st Contact Info) Description 03/17/2024 Procedure Pass [facility], Ct Scan - [address] [address] Social History Tobacco Use Types Packs/Day Years [...] Description 12/25/2024 2:30 PM EDT Office Visit [facility] Infectious Diseases [address] [place] [address] Dana Rucker FNP [address] [address] 01/01/2025 1:00 PM EDT Office Visit [address] [address] Dana Rucker FNP [address] [address] Nereyda Wong, PT [address] [place] [address] 01/07/2025 2:30 PM EDT Office Visit [facility] Allergy and Critical Care Medicine [address] [place] [address] Jose Thakur MD [address] [place] [address] 01/19/2025 2:30 PM EDT Office Visit [facility] [address] [place] [address] Dana Rucker FNP [address] [address] Nereyda Wong, PT [address] [place] [address] 01/26/2025 2:30 PM EDT Office Visit [facility] [address] [place] [address] Dana Rucker, ASSOCIATE PRODUCT INTEGRITY ENGINEER [address] [address] Nereyda Wong, PT [address] [place] [address] 01/29/2025 3:00 PM EDT Office Visit [address] [place] [address] Keren Poon, BOLT MAKER [address] [place] [address] 02/01/2025 3:00 PM EDT Office Visit [address] [place] [address] Keren Poon, BOLT MAKER [address] [place] [address] 03/02/2025 2:30 PM EST Office Visit [address] [address] Dana Rucker, [facility] [address] [address] Nereyda Wong, PT [address] [place] [address] 03/09/2025 2:30 PM EST Office Visit [address] [address] Dana Rucker, ASSOCIATE PRODUCT INTEGRITY ENGINEER 15 [facility], [address] [place] [address] Nereyda Wong, PT [address] [place] [address] 03/16/2025 2:30 PM EST Office Visit [facility] [address] [facility] [place] [address] Chaim Dana Jaimeley, ASSOCIATE PRODUCT INTEGRITY ENGINEER 15 [facility], 2nd [place] [address] Nereyda Wong, PT [address] [place] [address] 06/03/2025 2:00 PM EST Office Visit [facility] [address] [place] [address] [place] [address] Keren Poon, BOLT MAKER 170 [facility], [address] [place] [address] documented as of this encounter Visit Diagnoses [...] documented as of this encounter Care Teams Finance Executive Relationship Specialty Start Date End Date Keren Poon CNP [address] [place] [address] [email or web address] PCP - General Family Medicine 01/31/23 Cash Fernandes MD [address] [address] [email or web address] Gastroenterology 08/23/20 Chavo Jack MD [address] [place] [address] [email or web address] Insurance Assigned Provider 08/03/23 05/04/24 Willi Wells MD [address] [facility] [place] [address] Rheumatology 02/04/24 Jose Thakur MD [address] [place] [address] [email or web address] Digital Strategist Pulmonary Disease 03/17/24 Dana Rucker FNP [address] [address] [email or web address] Nurse Practitioner Infectious Diseases 05/21/24 Jonathan Alvarez MD [facility], [address] [place] [address] [email or web address] Urology 05/14/23 Anival Borja MD [address] [place] [address], [address] [place] [address] [email or web address] Neurologist Neurology 01/04/23 Lyndsay Reynoso FNP [address] [place] [address] Nurse Practitioner Pain Medicine 05/27/22 Gutierrez Pittman MD [address] [place] [phone] Sales Agent Cardiology 05/27/24 documented as of this encounter Additional Source Comments The information contained in this document represents components of the legal health record. It is not the complete legal health record.[facility]
--- OUTSIDE RECORDS SUMMARY | 2024-12-23 12:17 | XMS_ITS | Encounter Summary ---
Author Organization [facility] Address [address] [place] [address] Care Team Providers Care Account Executive Agribusiness Name Role Phone Alberto Pacheco Primary Care Provider [phone] Charly Saxena Primary Care Provider [phone] Cheryl Calderon MD Primary Care Provider [phone] Encounter Details Date Type Department Care Team (Late st Contact Info) Description 12/26/2010 Orders Only [facility] Rheumatology [address] [place] [address] Abel Fierro MD [address] [place] [address] Social History Tobacco Use Types Packs/Day Years [...] [facility] Comment:{WHITE BLOOD CELL CO UNT {[id number]) RBC 5.17(H) 3.80 - 5.10 Million/u L [facility] Comment:{RED BLOOD CELL COUN T {[id number]) Hemoglobin 15.0 11.7 - 15.5 g/dL [facility] Comment:{HEMOGLOBIN {[id number]) Hematocrit 46.0(H) 35.0 - 45.0 % [facility] Comment:{HEMATOCRIT {[id number]) MCV 89.1 80.0 - 100.0 fL [facility] Comment:{MCV {[id number]) MCH 29.0 27.0 - 33.0 pg [facility] Comment:{MCH {[id number]) MCHC 32.5 32.0 - 36.0 g/dL [facility] Comment:{MCHC {[id number]) RDW 16.1(H) 11.0 - 15.0 % [facility] Comment:{RDW {[id number]) PLT 300 140 - 400 Thousand/ uL [facility] Comment:{PLATELET COUNT {[id number]) MPV 7.6 7.5 - 11.5 fL [facility] Comment:{MPV {[id number]) Neutrophils # 7707 1500 - 7800 cells/uL [facility] Comment:{ABSOLUTE NEUTROPHIL S {[id number]) Lymphocytes # 2163 850 - 3900 cells/uL [facility] Comment:{ABSOLUTE LYMPHOCYTE S {[id number]) Monocytes # 452 200 - 950 cells/uL [facility] Comment:{ABSOLUTE MONOCYTES {[id number]) Eosinophils # 147 15 - 500 cells/uL [facility] Comment:{ABSOLUTE EOSINOPHIL S {[id number]) Basophils # 32 0 - 200 cells/uL [facility] Comment:{ABSOLUTE BASOPHILS {[id number]) Neutrophils % 73.4 % [facility] Comment:{NEUTROPHILS {[id number]) Lymphocytes % 20.6 % [facility] Comment:{LYMPHOCYTES {[id number]) Monocytes % 4.3 % [facility] Comment:{MONOCYTES {[id number]) Eosinophils % 1.4 % [facility] Comment:{EOSINOPHILS {[id number]) Basophils % 0.3 % [facility] Comment:{BASOPHILS {[id number]) 12/26/2010 9:49 AM EDT 12/27/2010 12:33 AM EDT Narrative Resulting Agency Comment 42A us Abel Fierro MD LAB SAME DAY RESULT Final Resul t Performing Organization Address [facility] Co de Phone Number [facility] [address] [place] [address] * ALANINE AMINOTRANSFERASE (ALT), SERUM (12/26/2010 9:49 AM EDT) ALT (SGPT) 16 6 - 40 U/L [facility] Comment:{ALT {[id number]) 12/26/2010 9:49 AM EDT 12/27/2010 12:33 AM EDT Narrative Resulting Agency Comment 823X us Abel Fierro MD LAB SAME DAY RESULT Final Resul t Performing Organization Address City/[facility] Co de Phone Number [facility] [address] [place] [address] * ASPARTATE AMINOTRANSFERASE (AST), SERUM (12/26/2010 9:49 AM EDT) AST (SGOT) 16 10 - 35 U/L [facility] Comment:{AST {[id number]) 12/26/2010 9:4 9 AM EDT 12/27/2010 12:33 AM EDT Narrative Resulting Agency Comment 822X us Abel Fierro MD LAB SAME DAY RESULT Final Resul t Performing Organization Address [facility] Co de Phone Number [facility] [address] [place] [address] * CREATININE WITH GLOMERULAR FILTRATION RATE, ESTIMATED (EGFR) (12/26/2010 9:49 AM EDT) Creatinine 0.86 0.60 - 1.10 mg/dL [facility] Comment:{CREATININE {[id number]) GFR 76 > OR = 60 mL/min/1.7 3m2 [facility] Comment:{eGFR NON-AFR. AMERI CAN {[id number]) GFR () 88 > OR = 60 mL/min/1.7 3m2 [facility] Comment:{eGFR AMERIC AN {[id number]) 12/26/2010 9:49 AM EDT 12/27/2010 12:33 AM [...] RESULT Final Resul t Performing Organization Address City/[facility] Co de Phone Number [facility] [address] [place] [address] documented in this encounter Visit Diagnoses Diagnosis Rheumatoid arthritis(714.0) Rheumatoid arthritis documented in this encounter Care Teams Account Executive Agribusiness Relationship Specialty Start Date End Date Alberto Pacheco [address] [place] [address] PCP - General 07/19/08 05/24/13 Charly Saxena [facility] [address] [place] [address] PCP - General Internal Medicine 05/25/13 07/16/17 Cheryl Calderon MD [facility] [address] [place] [address] PCP - General Internal Medicine 07/17/17 documented as of this encounter
--- OUTSIDE RECORDS SUMMARY | 2024-12-23 12:17 | XMS_ITS | Encounter Summary ---
Author Organization [facility] Address [address] [place] [address] Care Team Providers Care Flight Steward Name Role Phone Alberto Pacheco Primary Care Provider [phone] Charly Saxena Primary Care Provider [phone] Cheryl Calderon MD Primary Care Provider Reason for Visit * Reason Comments E-prescribing Refill Request Encounter Details Date Type Department Care Team (Late st Contact Info) Description 06/16/2011 Refill [facility] Rheumatology [address] [place] [address] Abel Fierro MD [address] [place] [address] E-prescribing Refill Request Social History Tobacco Use [...] her cruise. xc: Alberto Pacheco MD 28 [facility] Next OV: No future appointments. Pertinent [...] on filedocumented in this encounter Care Teams Flight Steward Relationship Specialty Start Date End Date Alberto Pacheco [address] [place] [address] PCP - General 07/19/08 05/24/13 Charly Saxena [facility] [address] [place] [address] PCP - General Internal Medicine 05/25/13 07/16/17 Cheryl Calderon MD [facility] Adult Medicine [address] [place] [address] PCP - General Internal Medicine 07/17/17 documented as of this encounter
--- OUTSIDE RECORDS SUMMARY | 2024-12-23 12:17 | XMS_ITS | Encounter Summary ---
Author Organization [facility] Address [address] [place] [address] Care Team Providers Care Patrol Sergeant Sheriff'S Office Name Role Phone Alberto Pacheco Primary Care Provider [phone] Charly Saxena Primary Care Provider [phone] Cheryl Calderon MD Primary Care Provider [phone] Encounter Details Date Type Department Care Team (Late st Contact Info) Description 09/02/2009 Orders Only [facility] Rheumatology [address] [place] [address] Abel Fierro MD [address] [place] [address] Social History Tobacco Use Types Packs/Day Years [...] Organization Address [facility] de Phone Number [facility] [address] [place] [address] * ASPARTATE AMINOTRANSFERASE (AST), SERUM (09/02/2009) AST (SGOT) 24 10 - 35 U/L [facility] 09/02/2009 09/02/2009 9:5 7 PM EDT us Abel Fierro MD LAB SAME DAY RESULT Final Resul t Performing Organization Address [facility] Phone Number [facility] [address] [place] [address] * CREATININE WITH GLOMERULAR FILTRATION RATE, ESTIMATED [...] RESULT Final Resul t Performing Organization Address City/[facility]/ZIP Co de Phone Number [facility] [address] [place] [address] * (ABNORMAL) CBC 5 PART DIFF (09/02/2009) [...] RESULT Final Resul t Performing Organization Address City/[facility]/ZIP Co de Phone Number [facility] [address] [place] [address] documented in this encounter Visit Diagnoses Diagnosis Rheumatoid arthritis(714.0) Rheumatoid arthritis documented in this encounter Care Teams Patrol Sergeant Sheriff'S Office Relationship Specialty Start Date End Date Alberto Pacheco [address] [place] [address] PCP - General 07/19/08 05/24/13 Charly Saxena [facility] [address] [place] [address] PCP - General Internal Medicine 05/25/13 07/16/17 Cheryl Calderon MD [facility] [address] [place] [address] PCP - General Internal Medicine 07/17/17 documented as of this encounter
--- OUTSIDE RECORDS SUMMARY | 2024-12-23 12:17 | XMS_ITS | Encounter Summary ---
Author Organization [facility] Address [address] [place] [address] Phone Care Team Providers Care Plaster Mold Maker Name Role Phone Cash Fernandes MD Unavailable [phone] Keren Poon [facility] Primary Care Provid er Willi Wells MD Unavailable Unavailable Jose Thakur MD Unavailable Dana Rucker DEHYDRATION UNIT OPERATOR Unavailable Jonathan Alvarez MD Unavailable [phone] Anival Borja MD Unavailable Lyndsay Reynoso DEHYDRATION UNIT OPERATOR Unavailable [phone] Gutierrez Pittman MD Unavailable [phone] Encounter Details Date Type Department Care Team (Late st Contact Info) Description 06/06/2024 Procedure Pass [facility], [address] [address] Social History Tobacco Use Types Packs/Day Years [...] Description 12/25/2024 2:30 PM EDT Office Visit [facility] Infectious Diseases [address] [place] [address] Dana Rucker FNP [address] [place] [address] 01/01/2025 1:00 PM EDT Office Visit [facility] [address] [place] [address] Dana Rucker DEHYDRATION UNIT OPERATOR [address] [place] [address] Nereyda Wong, PT [address] [place] [address] 01/07/2025 2:30 PM EDT Office Visit [facility] Pulmonary, Allergy and Critical Care Medicine [address] [place], [place] [id number] Jose Thakur MD [address] [place] [address] 01/19/2025 2:30 PM EDT Office Visit [facility] [address] [place], [place] [id number] Dana Rucker Leslee, [facility], [address] [place] [address] Nereyda Wong, PT [address] [place] [address] 01/26/2025 2:30 PM EDT Office Visit [facility] [address] [place] [address] Dana Rucker, [facility], [address] [place] [address] Nereyda Wong, PT [address] [place] [address] 01/29/2025 3:00 PM EDT Office Visit [address] [place] [address] Keren Poon, METAL WASHING MACHINE OPERATOR [address] [address] 02/01/2025 3:00 PM EDT Office Visit [address] [place] [address] Keren Poon, METAL WASHING MACHINE OPERATOR [address] [place] [address] 03/02/2025 2:30 PM EST Office Visit [address] [address] Dana Rucker, [facility] 15 [facility], [address] [place] [address] Nereyda Wong, PT [address] [place] [address] 03/09/2025 2:30 PM EST Office Visit [facility] [address] [place] [address] Dana Rucker, [facility] [address] [address] Nereyda Wong, PT [address] [place] [address] 03/16/2025 2:30 PM EST Office Visit [facility] [address] [place] [address] Dana Rucker, [facility] [address] [address] Nereyda Wong, PT [address] [place] [address] 06/03/2025 2:00 PM EST Office Visit [facility] [address] [place] [address] [place] [address] Keren Poon, [address] [address] [email or web address] documented as of this encounter Visit Diagnoses [...] documented as of this encounter Care Teams Plaster Mold Maker Relationship Specialty Start Date End Date Keren Poon CNP [address] [place] [address], 2[address] [place] [address] [email or web address] PCP - General Family Medicine 01/31/23 Cash Fernandes MD [address] [place] [address] [email or web address] Gastroenterology 08/23/20 Willi Wells MD [facility] Internal [facility] [place] [address] Rheumatology 02/04/24 Jose Thakur MD [address] [place] [address] [email or web address] Pulp Refiner Operator Pulmonary Disease 03/17/24 Dana Rucker FNP [address] [address] [email or web address] Nurse Practitioner Infectious Diseases 05/21/24 Jonathan Alvarez MD [address] [place] [address], [address] [place] [address] [email or web address] Urology 05/14/23 Anival Borja MD [address] [place] [address], [address] [place] [address] [email or web address] Neurologist Neurology 01/04/23 Lyndsay Reynoso FNP [address] [address] Nurse Practitioner Pain Medicine 05/27/22 Gutierrez Pittman MD [address] [place] [phone] Real Estate Executive Assistant Cardiology 05/27/24 documented as of this encounter Additional Source Comments The information contained in this document represents components of the legal health record. It is not the complete legal health record.[facility]
== END 2024-12-23 12:26 | disposition home or self-care (01) ==
LOC: HO.RHES 11:22
PROVIDERS: PCP Nurse Practitioner Family; Visit Provider Student in an Organized Health Care Education/Training Program
DX: M05.79 Rheumatoid arthritis with rheumatoid factor of multiple sites without organ or systems involvement (principal); M70.51 Other bursitis of knee, right knee; M70.52 Other bursitis of knee, left knee; Z51.81 Encounter for therapeutic drug level monitoring; Z79.620 Long term (current) use of immunosuppressive biologic; Z79.631 Long term (current) use of antimetabolite agent; Z79.52 Long term (current) use of systemic steroids
CPT/HCPCS: 20610; 99213

== ENCOUNTER → 2024-12-23 11:21 | Outpatient (BNVA) | payer MEDICARE, BC, SELFPAY | PROVIDERS: PCP Nurse Practitioner Family; Visit Provider Student in an Organized Health Care Education/Training Program | DX: M05.79 Rheumatoid arthritis with rheumatoid factor of multiple sites without organ or systems involvement (principal); M70.51 Other bursitis of knee, right knee; M70.52 Other bursitis of knee, left knee; Z79.620 Long term (current) use of immunosuppressive biologic; Z79.631 Long term (current) use of antimetabolite agent; Z79.52 Long term (current) use of systemic steroids | CPT/HCPCS: 20610; 99212; J2003; J3300 ==

== ENCOUNTER 2025-01-18 13:31 | Outpatient (AMB) | payer MEDICARE, BC, SELFPAY ==
[2025-01-18 13:35] VITALS: BP 140/88; PULSE 77; RESP 16; O2SAT 96; BMI 28.1
--- NOTE | 2025-01-18 13:35 | MHC.OFFVIS ---
Vital Signs 01/18/25 13:35 Height 5 ft 6 in Weight 174 lb BMI 28.1 BP 140/88 H Blood Pressure Location Rt brachial Position Sitting Respiration 16 Pulse 77 Pulse Source Pulse Oximeter Pulse Oximetry (%) 96 Oxygen Delivery Method Room Air Intake Visit Reasons: TPI Metal Weather Stripper Required: No Client Renewal Specialist: Client Renewal Specialist Present Accompanied by: Julito Tirado Allergies codeine Allergy (Mild, Verified 01/18/25 13:37) Paleness Gold Salts Allergy (Mild, Verified 01/18/25 13:37) Rash Sulfa (Sulfonamide Antibiotics) Allergy (Mild, Verified 01/18/25 13:37) Swelling Medication List - Last Reconciled 01/18/25 by Shayy Antunez LPN alendronate 70 mg PO QWEEK apixaban (Eliquis) 5 mg PO BID ascorbic acid (vitamin C) mg PO biotin 1 mg PO DAILY carvedilol 12.5 mg PO BID cholecalciferol (vitamin D3) 10 mcg PO DAILY cyclobenzaprine 5 mg PO TID PRN escitalopram oxalate 10 mg PO DAILY estradiol 0.01%(0.1mg/gram) grams vaginal NEEDED PRN fluticasone propionate 50 mcg/actuation 1 spray intranasal DAILY folic acid 1 mg PO DAILY furosemide mg PO levothyroxine 88 mcg PO DAILY lorazepam 0.5 mg PO Q4H PRN losartan 25 mg PO DAILY methenamine hippurate 1 g PO BID methotrexate sodium 15 mg (6 x 2.5 mg) PO QWEEK ondansetron 4 mg PO NEEDED oxybutynin chloride ER 10 mg PO DAILY potassium chloride ER 20 mEq PO BID prednisone 2.5 - 5 mg (0.5 - 1 x 5 mg) PO DAILY 90 days rituximab (Rituxan) 1,000 mg (100 mL) IV [id number] sennosides 8.6 mg PO BEDTIME sucralfate 1 g PO QID vancomycin mg PO HPI HPI TPI: Details: History of Present Illness The patient is a 70-year-old female presenting with cervical pain. The pain has been persistent and has worsened recently, affecting her daily activities. She reports that her head has started to fall more frequently, indicating a possible increase in muscle weakness or instability. Pain Description - Onset: Persistent, worsening recently - Quality: Associated with head falling more frequently Physical Exam - Musculoskeletal: Trigger points identified in the bilateral cervical, occipitalis, trapezius, and rhomboid regions Procedure - Trigger Point Injections: Informed consent obtained; patient in sitting position; trigger points identified in bilateral cervical, occipitalis, trapezius, and rhomboid muscles; 0.5 mL to 1 mL of ropivacaine 0.25% injected with dry needle; patient tolerated procedure well and was discharged in stable condition. [facility] Medical History Anxiety and depression Lacunar infarction Diverticulitis Diverticulosis Endometriosis Schatzki's ring Drug-induced lupus erythematosus Encounter for testing for latent tuberculosis infection Afib Osteopenia of multiple sites Rheumatoid arthritis involving multiple sites with positive rheumatoid factor Vitamin D deficiency Primary osteoarthritis of both knees Surgical History H/O unilateral oophorectomy H/O cataract extraction History of bladder suspension procedure H/O elbow replacement H/O tubal ligation History of cholecystectomy History of ankle surgery H/O hand surgery Family History Mother Diabetes Sister Diabetes Pancreatic cancer Father Pancreatic cancer Seizures Social History Household Members: Spouse Alcohol intake: never Patient Tobacco Use Status: Never used Tobacco Current occupational status: disabled Physical Exam Vital Signs: Last Vital Signs Pulse 77 01/18/25 13:35 Resp 16 01/18/25 13:35 BP 140/88 H 01/18/25 13:35 Pulse Ox 96 01/18/25 13:35 Oxygen Delivery Method Room Air 01/18/25 13:35 BMI result Body Mass Index 28.1 Assessment & Plan Assessment & Plan (1) Myofascial pain syndrome, cervical: Code(s): M79.18 - Myalgia, other site Category: Medical Plan Plan Patient was informed and verbally consented to the use of an ambient scribe for clinic note documentation during this visit. 1. Cervical Pain - Continue with trigger point injections as needed for pain management. - Follow-up appointments to monitor pain progression and treatment efficacy. Discussion Notes Informed consent was obtained for the trigger point injections, and the patient was informed about the procedure, including the identification of trigger points and the injection of ropivacaine. The patient was advised to follow up as needed to assess the effectiveness of the treatment and to address any further concerns. Patient Instructions - Continue with scheduled trigger point injections. - Monitor for any changes in pain or new symptoms and report them during follow-up visits. Coding Level of Care Code Procedure Only Diagnoses Myofascial pain syndrome, cervical M79.18
--- OUTSIDE RECORDS SUMMARY | 2025-01-18 15:54 | XMS_ITS | Clinical Summary ---
Author
--- OUTSIDE RECORDS SUMMARY | 2025-01-18 15:55 | XMS_ITS | Encounter Summary ---
Author Organization [facility] Address [address] [place] [address]
--- OUTSIDE RECORDS SUMMARY | 2025-01-18 15:55 | XMS_ITS | Encounter Summary ---
Author Organization [facility] Address [address] [place] [address] Phone Support Name Relationship Address Phone Néstor Juares Agent [address] [facility] [address]
--- OUTSIDE RECORDS SUMMARY | 2025-01-18 15:56 | XMS_ITS | Encounter Summary ---
Demographics Address [address] [facility] [address] [place] [address] Home Phone Mobile Phone
--- OUTSIDE RECORDS SUMMARY | 2025-01-18 15:56 | XMS_ITS | Encounter Summary ---
Author Organization [facility] Address [address] [place] [address] Support Name Relationship Address Phone Néstor Juares Emergency Contact [address] [place] [address]
--- OUTSIDE RECORDS SUMMARY | 2025-01-18 15:57 | XMS_ITS | Encounter Summary ---
Demographics
--- OUTSIDE RECORDS SUMMARY | 2025-01-18 15:58 | XMS_ITS | Encounter Summary ---
Author Organization [facility] Address [address] [place] [address]
== END 2025-01-18 14:11 | disposition home or self-care (01) ==
LOC: HO.PMC 13:32
PROVIDERS: PCP Nurse Practitioner Family; Visit Provider Internal Medicine
DX: M79.18 Myalgia, other site (principal)
CPT/HCPCS: 20553

== ENCOUNTER → 2025-01-18 13:31 | Outpatient (BNVA) | payer MEDICARE, BC, SELFPAY | PROVIDERS: PCP Nurse Practitioner Family; Visit Provider Internal Medicine | DX: M79.18 Myalgia, other site (principal) | CPT/HCPCS: 20553; J2795 ==

== ENCOUNTER 2025-02-15 13:10 | Outpatient (AMB) | payer MEDICARE, BC, SELFPAY ==
--- NOTE | 2025-02-15 13:24 | A.OFFVIS_ITS ---
Vital Signs 02/15/25 13:27 Height 5 ft 6 in Weight 172 lb BMI 27.8 BP 160/90 H Blood Pressure Location Lt brachial Position Sitting Respiration 16 Pulse 88 Pulse Source Pulse Oximeter Pulse Oximetry (%) 98 Oxygen Delivery Method Room Air Intake Visit Reasons: discuss alternative to TPI Shuttle Fitting Supervisor Required: No Allergies codeine Allergy (Mild, Verified 02/15/25 13:28) Paleness Gold Salts Allergy (Mild, Verified 02/15/25 13:28) Rash Sulfa (Sulfonamide Antibiotics) Allergy (Mild, Verified 02/15/25 13:28) Swelling Medication List - Last Reconciled 02/15/25 by Shayy Antunez, HUMPHREY alendronate 70 mg PO QWEEK apixaban (Eliquis) 5 mg PO BID ascorbic acid (vitamin C) mg PO biotin 1 mg PO DAILY carvedilol 12.5 mg PO BID cholecalciferol (vitamin D3) 10 mcg PO DAILY cyclobenzaprine 5 mg PO TID PRN escitalopram oxalate 10 mg PO DAILY estradiol 0.01%(0.1mg/gram) grams vaginal NEEDED PRN fluticasone propionate 50 mcg/actuation 1 spray intranasal DAILY folic acid 1 mg PO DAILY furosemide mg PO levothyroxine 88 mcg PO DAILY lorazepam 0.5 mg PO Q4H PRN losartan 25 mg PO DAILY methenamine hippurate 1 g PO BID methotrexate sodium 15 mg (6 x 2.5 mg) PO QWEEK ondansetron 4 mg PO NEEDED oxybutynin chloride ER 10 mg PO DAILY potassium chloride ER 20 mEq PO BID prednisone 2.5 - 5 mg (0.5 - 1 x 5 mg) PO DAILY 90 days prednisone 2.5 - 5 mg (1 - 2 x 2.5 mg) PO DAILY 90 days rituximab (Rituxan) 1,000 mg (100 mL) IV [id number] sennosides 8.6 mg PO BEDTIME sucralfate 1 g PO QID vancomycin mg PO HPI HPI discuss alternative to TPI: Details: History of Present Illness The patient is a 70-year-old female presenting with pain management issues related to insurance coverage for trigger point injections. The patient has been receiving trigger point injections, which are currently facing decreased coverage from insurance. The patient and the clinician discussed the challenges posed by insurance regulations and the potential implications for her treatment plan. Alternative pain management options were discussed, including magnetic nerve stimulation and red light therapy, which are not currently covered by insurance but may be considered in the future. [facility] Medical History Anxiety and depression Lacunar infarction Diverticulitis Diverticulosis Endometriosis Schatzki's ring Drug-induced lupus erythematosus Encounter for testing for latent tuberculosis infection Afib Osteopenia of multiple sites Rheumatoid arthritis involving multiple sites with positive rheumatoid factor Vitamin D deficiency Primary osteoarthritis of both knees Surgical History H/O unilateral oophorectomy H/O cataract extraction History of bladder suspension procedure H/O elbow replacement H/O tubal ligation History of cholecystectomy History of ankle surgery H/O hand surgery Family History Mother Diabetes Sister Diabetes Pancreatic cancer Father Pancreatic cancer Seizures Social History Household Members: Spouse Alcohol intake: never Patient Tobacco Use Status: Never used Tobacco Current occupational status: disabled Physical Exam Vital Signs: Last Vital Signs Pulse 88 02/15/25 13:27 Resp 16 02/15/25 13:27 BP 160/90 H 02/15/25 13:27 Pulse Ox 98 02/15/25 13:27 Oxygen Delivery Method Room Air 02/15/25 13:27 BMI result Body Mass Index 27.8 Assessment & Plan Assessment & Plan (1) Chronic pain syndrome: Code(s): G89.4 - Chronic pain syndrome Category: Medical Plan Plan Patient was informed and verbally consented to the use of an ambient scribe for clinic note documentation during this visit. 1. Pain Management Issues Related To Insurance Coverage For Trigger Point Injections - Discussed the challenges with insurance coverage for trigger point injections and potential alternatives. - Consideration of alternative therapies such as magnetic nerve stimulation and red light therapy, which are not covered by insurance. 2. Potential Use Of Magnetic Nerve Stimulation And Red Light Therapy For Pain Management - Discussed the potential benefits and limitations of magnetic nerve stimulation and red light therapy as alternative pain management options. - These therapies are not currently covered by insurance but may be considered for future use. Discussion Notes During the visit, we discussed the current challenges with insurance coverage for trigger point injections and explored alternative pain management options such as magnetic nerve stimulation and red light therapy. These alternatives are not covered by insurance, and we considered the implications of pursuing them. Patient Instructions - Consider exploring alternative pain management options such as magnetic nerve stimulation and red light therapy. - Follow up with the clinic to discuss any changes in insurance coverage or new treatment options. Coding Level of Care Code Est Pt Level 3 (68534) Diagnoses Chronic pain syndrome G89.4
[2025-02-15 13:27] VITALS: BP 160/90; PULSE 88; RESP 16; O2SAT 98; BMI 27.8
== END 2025-02-15 13:54 | disposition home or self-care (01) ==
LOC: HO.PMC 13:11
PROVIDERS: PCP Nurse Practitioner Family; Visit Provider Internal Medicine
DX: G89.4 Chronic pain syndrome (principal)
CPT/HCPCS: 99213

== ENCOUNTER → 2025-02-15 13:10 | Outpatient (BNVA) | payer MEDICARE, BC, SELFPAY | PROVIDERS: PCP Nurse Practitioner Family; Visit Provider Internal Medicine | DX: G89.4 Chronic pain syndrome (principal) | CPT/HCPCS: 99212 ==

== ENCOUNTER → 2025-03-19 13:30 | Outpatient (BNV) | payer MEDICARE, BC, SELFPAY | PROVIDERS: PCP Nurse Practitioner Family; Visit Provider Radiology Diagnostic Radiology | DX: E28.39 Other primary ovarian failure (principal) | CPT/HCPCS: 77080 ==

== ENCOUNTER 2025-03-19 13:35 | Outpatient (REF) | payer MEDICARE, BC, SELFPAY ==
--- NOTE | ~2025-03-19 | MM_ITS ---
EXAMINATION: DXA BONE DENSITY AXIAL HISTORY: M81.0 - Age-related osteoporosis without current pathological fracture TECHNIQUE: BIOSAFE Dual energy absorptiometry (DEXA) of the lumbar spine, total left hip, and femoral neck was performed. COMPARISON: Comparison is made with the prior examination dated 01/31/2023. FINDINGS: The bone mineral density of the lumbar spine is 1.113 g/cm2, corresponding to a T-score of -0.7, and a Z-score of 0.5. This is indicative of normal bone mineral density. This represents a BMD change of -0.2% compared to the prior exam. This is not statistically significant. The bone mineral density of the left total hip is 0.794 g/cm2, corresponding to a T-score of -1.7, and a Z-score of -0.6. This is indicative of osteopenia. This represents a BMD change of 9.5% compared to the prior exam. This is statistically significant. The bone mineral density of the left femoral neck is 0.898 g/cm2, corresponding to a T-score of -1.0, and a Z-score of 0.4. This is indicative of normal bone mineral density. This represents a BMD change of 6.3% compared to the prior exam. FRACTURE RISK: The FRAX index suggests a ten year probability of major osteoporotic fracture of 26.9%, and of hip fracture 3.6%. MM/XR DEXA axial skeleton IMPRESSION: Based on bone mineral density, and according to World Health Organization (WHO) criteria, the diagnosis is consistent with osteopenia. Statistically, 68% of repeat scans fall within 1 SD (+/- 0.010 g/cm2 for AP spine L1-L4) and 1 SD (+/- 0.012 g/cm2 for femur total) FRAX is a trademark of the [employer]'s [place] [employer] Met[employer], a World Health Organization (WHO) Collaborating Center. Electronically signed by: Abel Cuellar MD 03/19/2025 02:38 PM [facility]
--- OUTSIDE RECORDS SUMMARY | 2025-03-19 13:57 | XMS_ITS | Encounter Summary ---
Author Organization [facility] Address [address] [place] [address] Care Team Providers Care Atv Mechanic Name Role Phone Charly Saxena Primary Care Provider [phone] Cheryl Calderon MD Primary Care Provider [phone] Encounter Details Date Type Department Care Team (Late st Contact Info) Description 05/25/2013 Orders Only [facility] Rheumatology [address] [place] [address] Abel Fierro MD [address] [place] [address] Social History Tobacco Use Types Packs/Day Years [...] on file documented as of this encounter Functional Status * Over the LAST WEEK, were you able to: Question Answer Date of Assessment Author 1. Dress yourself, including tying shoelaces and doing buttons? 2 05/25/2013 2:00 PM EST Gingerecharo Sasse t - Inactive 2. Get in and out of bed? 1 05/25/2013 2:00 PM EST Gingerelldamir Sasset - Inactive 3. Lift a full cup or glass to your mouth? 2 05/25/2013 2:00 PM EST Gingerelli, Sasse t - Inactive 4. Walk outdoors on flat ground? 3 05/25/2013 2:00 PM EST Gingerelli, Sasse t - Inactive 5. Wash and dry your entire body? 2 05/25/2013 2:00 PM EST Gingerelli, Sasse t - Inactive 6. Bend down to draft roller picker clothing from the floor? 2 05/25/2013 2:00 PM EST Gingerelli, Sasset - Inactive 7. Turn regular faucets on a nd off? 1 05/25/2013 2:00 PM EST Gingerelli, Sasse t - Inactive 8. Get in and out of a car, bus, train or airplane? 2 05/25/2013 2:00 PM EST Gingerelli, S asset - Inactive 9. Walk two miles, if you wish? 3 05/25/2013 2:00 PM EST Gingerelli, Sasse t - Inactive 10. Participate in recreational activities and sports as you would like, if you wish? 3 05/25/2013 2:00 PM EST Gingerelli, Sasse t - Inactive FN TOTAL 21 05/25/2013 2:00 PM EST Ginge relli, Sasset - Inactive FN CONVERSION 7 05/25/2013 2:00 PM EST Ging erelli, Sasset - Inactive * Health Assessment Pain Question Question Answer Date of Assessment Author How much pain have you had because of your condition OVER THE PAST WEEK? 7.5 05/25/2013 2:00 PM EST Gingerelli, Sasse t - Inactive PN TOTAL 7.5 05/25/2013 2:00 PM EST Ginge relli, Sasset - Inactive * Affect of Illness and Health Conditions Question Answer Date of Assessment Author PTGL TOTAL 7.5 05/25/2013 2:00 PM EST Ginge relli, Sasset - Inactive Considering all the ways in which illness and health conditions may affect you at this time, please indicate below how you are doing? 7.5 05/25/2013 2:00 PM EST Gingerelli, Sasset - Inactive * RAPID 3 Question Answer Date of Assessment Author RAPID 3 TOTAL SCORE 22 05/25/2013 2:00 PM ES T Gingerelli, Sasset - Inactive documented as of this encounter Plan of Treatment Not on file documented as of this encounter Procedures * Due to [place] [employer] law, this organization might not be sharing negative HIV tests. Procedure Name Priority Date/Time Associated Diagnosis Comments C-REACTIVE PROTEIN (CRP) - INFLAMMATION Routine 05/25/2013 3:30 PM EST Rheumatoid arthritis (HCC) ERYTHROCYTE SEDIMENTATION RATE (ESR) Routine 05/25/2013 3:30 PM EST Rheumatoid arthritis (HCC) documented in this encounter Results * Due to [place] [employer] law, this organization might not be sharing negative HIV tests. * C-REACTIVE PROTEIN (CRP) - INFLAMMATION (05/25/2013 3:30 PM EST) C reactive protein 0.52 <0.80 mg/dL [facility] Comment: {C-REACTIVE PROTEIN {[id number]) Please be advised that patients taking Carboxypenicillins may exhibit falsely decreased C-Reactive Protein levels due to an analytical interference in this assay. 05/25/2013 3:30 PM EST 05/25/2013 6:52 PM EST Narrative Resulting Agency Comment [id number] us Abel Fierro MD LABORATORY Final Result Performing Organization Address City/[facility] Co de Phone Number [facility] [address] [place] [address] * (ABNORMAL) ERYTHROCYTE SEDIMENTATION RATE (ESR), WESTERGREN (05/25/2013 3:30 PM EST) Sedimentation Rate [place] (ESR) 32(H) < OR = 30 mm/h [facility] Comment:{SED RATE BY MODIFIE D WESTERGREN {[id number]) 05/25/2013 3:30 PM EST 05/25/2013 6:52 PM EST Narrative Resulting Agency Comment [id number] us Abel Fierro MD LAB SAME DAY RESULT Final Resul t Performing Organization Address City/[facility] Co de Phone Number [facility] [address] [place] [address] documented in this encounter Visit Diagnoses Diagnosis Rheumatoid arthritis(714.0) Rheumatoid arthritis documented in this encounter Care Teams Atv Mechanic Relationship Specialty Start Date End Date Charly Saxena [facility] [address] [place] [address] PCP - General Internal Medicine 05/25/13 07/16/17 Cheryl Calderon MD [facility] Medicine [address] [place] [address] PCP - General Internal Medicine 07/17/17 documented as of this encounter
--- OUTSIDE RECORDS SUMMARY | 2025-03-19 13:57 | XMS_ITS | Encounter Summary ---
Author Organization [facility] Address [address] [place] [address] Care Team Providers Care Planning Supervisor Name Role Phone Alberto Pacheco Primary Care Provider [phone] Chraly Saxena Primary Care Provider [phone] Cheryl Calderon MD Primary Care Provider [phone] Reason for Visit * Reason Comments E-prescribing Refill Request Encounter Details Date Type Department Care Team (Late st Contact Info) Description 05/11/2013 Refill [facility] Rheumatology [address] [place] [id number] Anival Bales MD E-prescribing Refill Request Social [...] of her nearly 4-year-old grandson Harshil in [place]. Next OV: Future Appointments Date Time Provider [...] on filedocumented in this encounter Care Teams Planning Supervisor Relationship Specialty Start Date End Date Alberto Pacheco [address] [place] [address] PCP - General 07/19/08 05/24/13 Charly Saxena [facility] [address] [place] [address] PCP - General Internal Medicine 05/25/13 07/16/17 Cheryl Calderon MD [facility] Adult Medicine [address] [place] [address] PCP - General Internal Medicine 07/17/17 documented as of this encounter
--- OUTSIDE RECORDS SUMMARY | 2025-03-19 13:57 | XMS_ITS | Encounter Summary ---
Author Organization [facility] Address [address] [place] [address] Care Team Providers Care Manager Long Term Care Name Role Phone Charly Saxena Primary Care Provider [phone] Cheryl Calderon MD Primary Care Provider [phone] Encounter Details Date Type Department Care Team (Late st Contact Info) Description 05/25/2013 Orders Only [facility] Rheumatology [address] [place] [address] Abel Fierro MD [address] [place] [address] Social History Tobacco Use Types Packs/Day Years [...] t - Inactive 6. Bend down to pick up man clothing from the floor? 2 05/25/2013 2:00 [...] of this encounter Results * Due to [place] state law, this organization might not be sharing negative HIV tests. * C-REACTIVE PROTEIN (CRP) - INFLAMMATION (05/25/2013 3:30 PM EST) C reactive protein 0.52 <0.80 mg/dL [facility] Comment: {C-REACTIVE PROTEIN {[id number]) Please be advised that patients taking Carboxypenicillins may exhibit falsely decreased C-Reactive Protein levels due to an analytical interference in this assay. 05/25/2013 3:30 PM EST 05/25/2013 6:52 PM EST Narrative Resulting Agency Comment [id number] us Abel Fierro MD LABORATORY Final Result Performing Organization Address [facility] Co de Phone Number [facility] [address] [place] [address] * (ABNORMAL) ERYTHROCYTE SEDIMENTATION RATE (ESR), WESTERGREN (05/25/2013 3:30 PM EST) Sedimentation Rate [place] (ESR) 32(H) < OR = 30 mm/h [facility] Comment:{SED RATE BY MODIFIE D WESTERGREN {[id number]) 05/25/2013 3:30 PM EST 05/25/2013 6:52 PM EST Narrative Resulting Agency Comment [id number] us Abel Fierro MD LAB SAME DAY RESULT Final Resul t Performing Organization Address City/[facility] de Phone Number [facility] [address] [place] [address] documented in this encounter Visit Diagnoses Diagnosis Rheumatoid arthritis(714.0)- Primary Rheumatoid arthritis documented in this encounter Care Teams Manager Long Term Care Relationship Specialty Start Date End Date Charly Saxena [facility] [place], [place] [id number] PCP - General Internal Medicine 05/25/13 07/16/[address] [facility] Adult Medicine [address] [place] [address] PCP - General Internal Medicine 07/17/17 documented as of this encounter
--- OUTSIDE RECORDS SUMMARY | 2025-03-19 13:57 | XMS_ITS | Encounter Summary ---
Author Organization [facility] Address [address] [place] [address] Care Team Providers Care Freight Car Builder Name Role Phone Cheryl Calderon MD Primary Care Provider [phone] Reason for Visit * Reason Comments E-prescribing Refill Request Encounter Details Date Type Department Care Team (Late st Contact Info) Description 06/08/2019 Refill [facility] Rheumatology [address] [place] [phone] Melanie Aguirre MD E-prescribing Refill Request Social [...] 06/19/19 1:45 PM Melanie Aguirre MD [facility] Rheumatology [phone] 08/04/19 2:40 PM Liliana Calderon NP [facility] Hematology/Oncology [phone] 11/10/19 1:30 PM Lyndsay Lopez MD [facility] Ophthalmology [phone] Pertinent lab results: Lab Results Component Value [...] ??? Elbow pain 06/03/2012 ??? Rheumatoid arthritis(714.0) ([facility]) 09/29/2010 Followed by rheumatology treated with methotrexate, [...] on filedocumented in this encounter Care Teams Freight Car Builder Relationship Specialty Start Date End Date Cheryl Calderon MD [facility] Adult Medicine [address] [place] [address] PCP - General Internal Medicine 07/17/17 documented as of this encounter
--- OUTSIDE RECORDS SUMMARY | 2025-03-19 13:57 | XMS_ITS | Clinical Summary ---
Author Organization [facility] Address [address] [place] [address] Care Team Providers Care Security Researcher Name Role Phone Cheryl Calderon MD Primary Care Provider [phone] Allergies Active Allergy Reactions Criticality Noted Date [...] 1 TABLET DAILY 05/05/2016 Active Potassium Chloride Stephnaie CR (KLOR-CON M20) 20 MEQ Tab CR [...] Immunization Administration Dates Next Due COVID-19, mRNA ([facility] - [facility] Pre F all 2022) Monovalent, 30 mcg/0.3 ml 04/11/2021,10/03/2020,07/08/2020 Covid-19, mRNA ([facility] - [facility] Pre F all 2022) Bivalent, 30 mcg/0.3 ml mohan-sucrose (12+) dose 04/13/2022 Covid-19, mRNA ([facility] - [facility] Pre F all 2022) Monovalent, 30 mcg/0.3 [...] exists Zoster (Shingrix) (1 of 2) 2005 DTaP/Tdap/Td (3 - Td or Tdap) 09/27/2024 09/27/2014, 04/14/2010, 07/05/1997 COVID-19 Vaccine ( season) 2024 04/13/2022, 09/11/2021, 04/11/2021, Additional history exists Influenza (#1) 2024 03/07/2022, 01/27, 01/07/2020, Additional [...] Zoster (Zostavax) Discontinued Procedures * Due to [place] state law, [...] to Health Maintenance Results * Due to [place] state law, [...] a test for HCV RNA (test code 70918) is suggested. For additional information please refer to http://education.Park.com.Twingly/faq/HCM58i2 (This link is being provided for informational/ educational purposes only.) 12/23/2018 11:3 2 AM EDT 12/23/2018 11:23 PM EDT Narrative Resulting Agency Comment [id number] us Liliana Calderon NP LABORATORY Final Result [facility] [address] [place] [address] * DXA BONE DENSITY STUDY AXIAL (LSSPINE, [...] DUAL-ENERGY X-RAY ABSORPTIOMETRY (DXA) SCAN: DXA MODEL: [employer] in fast scan mode RISK FACTORS: The [...] 100 - 199 MG/DL [facility] (CLIA# [id number]) TRIGLYCERIDES 132 30 - 149 MG/DL [facility] (CLIA# [id number]) HDL-CHOLESTEROL 85(H) 40 - 77 MG/DL [facility] (CLIA# [id number]) LDL-CHOLESTEROL 80 62 - 130 MG/DL [facility] (CLIA# [id number]) Comment: RISK CATEGORY: LDL-CHOLESTEROL GOAL CHD AND CHD RISK EQUIVALENTS: <100 MULTIPLE (2+) FACTORS: <130 ZERO TO ONE RISK FACTOR: <160 CHD RELATIVE RISK RATIO (TOTAL/HDL) 2.25 [facility] (CLIA# [id number]) Comment:(< .25 X AVERAGE) 11/03/2004 9:46 AM EDT 11/03/2004 9:46 AM EDT Narrative [facility] (CLIA# [id number]) - 11/03/2004 9:46 AM EDT FASTING Abel Fierro MD LABORATORY Final Result [facility] (CLIA# [id number]) [address] [place] [address] * XRAY CHEST 2 VIEWS PA & LAT (06/28/2003 1:26 PM EST) Pathologist [facility] RADIOLOGY REPORT Chest: Lungs and [...] Conclusion: No acute disease. [facility] (CLIA# [id number]) Anatomical Region Laterality Modality Other 06/28/2003 1:26 [...] the interpreting radiologist. BI-RADS Category 1: Negative [facility] (CLIA# [id number]) LETTER SENT A mammogram letter type A N was printed on 07/08/2001 [facility] (CLIA# [id number]) Anatomical Region Laterality Modality Other 06/25/2001 1:42 [...] is suggested. No definite polyp was seen. [facility] (CLIA# [id number]) Anatomical Region Laterality Modality Other 06/07/2000 8:40 AM EST Narrative 06/07/2000 2:57 PM EST Reason for Study/History: ABD PAIN Test(s) processed by : IDAime RIVERA Jeff Puente PA-C CONTRAST STUDY- OTHER Elana l Result * PAP SMEAR (12/06/1999 12:00 AM EDT) SPERM SOURCE VCE [facility] (CLIA# [id number]) NUMBER OF SLIDES RECEIVED: 1 [facility] (CLIA# [id number]) HISTORY CLINICAL [facility] (CLIA# [id number]) Comment:Menopause [address] [facility] (CLIA# [id number]) Comment:Endocervical cells a re present SPECIMEN ADEQUACY: [facility] (CLIA# [id number]) Comment:Satisfactory specime n for Cytologic evaluation. PATHOLOGY DIAGNOSIS [facility] (CLIA# [id number]) Comment:WITHIN NORMAL LIMITS PATHOLOGY GROUP: [facility] (CLIA# [id number]) Comment: [address] [place]. [address] 12/06/1999 12/06/1999 Chloe Law MD PATHOLOGY Final Resul t [facility] (CLIA# [id number]) [address] [place] [address] from Last 3 Months or Most Recently Relevant to Health Maintenance Insurance MEDICARE PART B BC FFS FEDERAL Care Teams Security Researcher Relationship Specialty Start Date End Date Cheryl Calderon MD [facility] Adult Medicine [address] [place] [address] PCP - General Internal Medicine 07/17/17
--- OUTSIDE RECORDS SUMMARY | 2025-03-19 13:57 | XMS_ITS | Encounter Summary ---
Author Organization [facility] Address [address] [place] [address] Care Team Providers Care Straw Baler Name Role Phone Charly Saxena Primary Care Provider [phone] Cheryl Calderon MD Primary Care Provider [phone] Encounter Details Date Type Department Care Team (Late st Contact Info) Description 05/25/2013 Orders Only [facility] Rheumatology [address] [place] [address] Abel Fierro MD [address] [place] [address] Social History Tobacco Use Types Packs/Day Years [...] t - Inactive 6. Bend down to cook pickled meat clothing from the floor? 2 05/25/2013 2:00 [...] this encounter Procedures * Due to [place] [employer] law, this organization might not be sharing [...] in this encounter Results * Due to [facility] law, this organization might not be sharing negative HIV tests. * CREATININE WITH GLOMERULAR FILTRATION RATE, ESTIMATED (EGFR) (05/25/2013 2:20 PM EST) Creatinine 0.90 0.50 - 1.05 mg/dL [facility] Comment: {CREATININE {[id number]) For patients >49 years of age, the reference limit for Creatinine is approximately 13% higher for people identified as -Citizen Of [place]. GFR 70 > OR = 60 mL/min/1. 73m2 [facility] Comment:{eGFR NON-AFR. AMERI CAN {[id number]) GFR () 82 > OR = 60 mL/min/1. 73m2 [facility] Comment:{eGFR AMERIC AN {[id number]) 05/25/2013 2:20 PM EST 05/25/2013 6:51 PM [...] needs for GFR calculation. Resulting Agency Comment [id number] us Abel Fierro MD LAB SAME DAY RESULT Final Resul t [facility] [address] [place] [address] * (ABNORMAL) CBC INCLUDES DIFFERENTIAL AND PLATELET COUNT (05/25/2013 2:20 PM EST) WBC 14.5(H) 3.8 - 10.8 Thousand/ uL [facility] Comment:{WHITE BLOOD CELL CO UNT {[id number]) RBC 5.63(H) 3.80 - 5.10 Million/u L [facility] Comment:{RED BLOOD CELL COUN T {[id number]) Hemoglobin 14.6 11.7 - 15.5 g/dL [facility] Comment:{HEMOGLOBIN {[id number]) Hematocrit 46.7(H) 35.0 - 45.0 % [facility] Comment:{HEMATOCRIT {[id number]) MCV 82.8 80.0 - 100.0 fL [facility] Comment:{MCV {[id number]) MCH 26.0(L) 27.0 - 33.0 pg [facility] Comment:{MCH {[id number]) MCHC 31.4(L) 32.0 - 36.0 g/dL [facility] Comment:{MCHC {[id number]) RDW 15.0 11.0 - 15.0 % [facility] Comment:{RDW {[id number]) PLT 395 140 - 400 Thousand/ uL [facility] Comment:{PLATELET COUNT {[id number]) MPV 7.4(L) 7.5 - 11.5 fL [facility] Comment:{MPV {[id number]) Neutrophils # 99611(H) 1500 - 7800 cells/uL [facility] Comment:{ABSOLUTE NEUTROPHIL S {[id number]) Lymphocytes # 1291 850 - 3900 cells/uL [facility] Comment:{ABSOLUTE LYMPHOCYTE S {[id number]) Monocytes # 595 200 - 950 cells/uL [facility] Comment:{ABSOLUTE MONOCYTES {[id number]) Eosinophils # 102 15 - 500 cells/uL [facility] Comment:{ABSOLUTE EOSINOPHIL S {[id number]) Basophils # 29 0 - 200 cells/uL [facility] Comment:{ABSOLUTE BASOPHILS {[id number]) Neutrophils % 86.1 % [facility] Comment:{NEUTROPHILS {[id number]) Lymphocytes % 8.9 % [facility] Comment:{LYMPHOCYTES {[id number]) Monocytes % 4.1 % [facility] Comment:{MONOCYTES {[id number]) Eosinophils % 0.7 % [facility] Comment:{EOSINOPHILS {[id number]) Basophils % 0.2 % [facility] Comment:{BASOPHILS {[id number]) 05/25/2013 2:20 PM EST 05/25/2013 6:51 PM EST Narrative Resulting Agency Comment [id number] Abel Fierro MD LAB SAME DAY RESULT Final Resul t Performing Organization Address City/[facility] Co de Phone Number [facility] [address] [place] [address] * ALANINE AMINOTRANSFERASE (ALT), SERUM (05/25/2013 2:20 PM EST) ALT (SGPT) 21 6 - 29 U/L [facility] Comment:{ALT {[id number]) 05/25/2013 2:20 PM EST 05/25/2013 6:51 PM EST Narrative Resulting Agency Comment [id number] Abel Fierro MD LAB SAME DAY RESULT Final Resul t Performing Organization Address City/[facility]/ZIP Co de Phone Number [facility] [address] [place] [address] * ASPARTATE AMINOTRANSFERASE (AST), SERUM (05/25/2013 2:20 PM EST) AST (SGOT) 21 10 - 35 U/L [facility] Comment:{AST {[id number]) 05/25/2013 2:20 PM EST 05/25/2013 6:51 PM EST Narrative Resulting Agency Comment [id number] us Abel Fierro MD LAB SAME DAY RESULT Final Resul t [facility] [address] [place] [address] documented in this encounter Visit Diagnoses Diagnosis Rheumatoid arthritis(714.0) Rheumatoid arthritis documented in this encounter Care Teams Straw Baler Relationship Specialty Start Date End Date Charly Saxena [facility] [address] [place] [address] PCP - General Internal Medicine 05/25/13 07/16/17 Cheryl Calderon MD [facility] Medicine [address] [place] [address] PCP - General Internal Medicine 07/17/17 documented as of this encounter
--- OUTSIDE RECORDS SUMMARY | 2025-03-19 13:58 | XMS_ITS | Encounter Summary ---
Author Organization [facility] Address [address] [place] [address] Care Team Providers Care Brake Tester Name Role Phone Charly Saxena Primary Care Provider [phone] Cheryl Calderon MD Primary Care Provider [phone] Encounter Details Date Type Department Care Team (Late st Contact Info) Description 07/06/2015 Orders Only [facility] Rheumatology [address] [place] [address] Abel Fierro MD [address] [place] [address] Social History Tobacco Use Types Packs/Day Years [...] - 0.99 mg/dL [facility] Comment: {CREATININE {[id number]) For patients >49 years of age, the reference limit for Creatinine is approximately 13% higher for people identified as -[place]. GFR 69 > OR = 60 mL/min/1. 73m2 [facility] Comment:{eGFR NON-AFR. AMERI CAN {[id number]) GFR () 81 > OR = 60 mL/min/1. 73m2 [facility] Comment:{eGFR AMERIC AN {[id number]) 07/06/2015 1:10 PM EST 07/07/2015 12:26 AM [...] needs for GFR calculation. Resulting Agency Comment [id number] us Abel Fierro MD LAB SAME DAY RESULT Final Resul t Performing Organization Address [facility] Co de Phone Number [facility] [address] [place] [address] * (ABNORMAL) ALANINE AMINOTRANSFERASE (ALT), SERUM (07/06/2015 1:10 PM EST) ALT (SGPT) 35(H) 6 - 29 U/L [facility] Comment:{ALT {[id number]) 07/06/2015 1:10 PM EST 07/07/2015 12:26 AM EST Narrative Resulting Agency Comment [id number] Abel Fierro MD LAB SAME DAY RESULT Final Resul t Performing Organization Address [facility] de Phone Number [facility] [address] [place] [address] * ASPARTATE AMINOTRANSFERASE (AST), SERUM (07/06/2015 1:10 PM EST) AST (SGOT) 24 10 - 35 U/L [facility] Comment:{AST {[id number]) 07/06/2015 1:10 PM EST 07/07/2015 12:26 AM EST Narrative Resulting Agency Comment [id number] Abel Fierro MD LAB SAME DAY RESULT Final Resul t Performing Organization Address [facility] de Phone Number [facility] [address] [place] [address] * (ABNORMAL) CBC INCLUDES DIFFERENTIAL AND PLATELET COUNT (07/06/2015 1:10 PM EST) WBC 9.5 3.8 - 10.8 Thousand/ uL [facility] Comment:{WHITE BLOOD CELL CO UNT {[id number]) RBC 5.89(H) 3.80 - 5.10 Million/u L [facility] Comment:{RED BLOOD CELL COUN T {[id number]) Hemoglobin 15.7(H) 11.7 - 15.5 g/dL [facility] Comment:{HEMOGLOBIN {[id number]) Hematocrit 48.6(H) 35.0 - 45.0 % [facility] Comment:{HEMATOCRIT {[id number]) MCV 82.5 80.0 - 100.0 fL [facility] Comment:{MCV {[id number]) MCH 26.7(L) 27.0 - 33.0 pg [facility] Comment:{MCH {[id number]) MCHC 32.3 32.0 - 36.0 g/dL [facility] Comment:{MCHC {[id number]) RDW 15.9(H) 11.0 - 15.0 % [facility] Comment:{RDW {[id number]) PLT 356 140 - 400 Thousand/ uL [facility] Comment:{PLATELET COUNT {[id number]) MPV 7.5 7.5 - 11.5 fL [facility] Comment:{MPV {[id number]) Neutrophils # 7999(H) 1500 - 7800 cells/uL [facility] Comment:{ABSOLUTE NEUTROPHIL S {[id number]) Lymphocytes # 979 850 - 3900 cells/uL [facility] Comment:{ABSOLUTE LYMPHOCYTE S {[id number]) Monocytes # 428 200 - 950 cells/uL [facility] Comment:{ABSOLUTE MONOCYTES {[id number]) Eosinophils # 48 15 - 500 cells/uL [facility] Comment:{ABSOLUTE EOSINOPHIL S {[id number]) Basophils # 48 0 - 200 cells/uL [facility] Comment:{ABSOLUTE BASOPHILS {[id number]) Neutrophils % 84.2 % [facility] Comment:{NEUTROPHILS {[id number]) Lymphocytes % 10.3 % [facility] Comment:{LYMPHOCYTES {[id number]) Monocytes % 4.5 % [facility] Comment:{MONOCYTES {[id number]) Eosinophils % 0.5 % [facility] Comment:{EOSINOPHILS {[id number]) Basophils % 0.5 % [facility] Comment:{BASOPHILS {[id number]) 07/06/2015 1:10 PM EST 07/07/2015 12:26 AM EST Narrative Resulting Agency Comment [id number] us Abel Fierro MD LAB SAME DAY RESULT Final Resul t [facility] [address] [place] [address] documented in this encounter Visit Diagnoses Diagnosis Rheumatoid arthritis involving both feet, unspecified rheumatoid factor presence (HCC) [M06.071, M06.072] documented in this encounter Care Teams Brake Tester Relationship Specialty Start Date End Date Charly Saxena [facility] [address] [place] [address] PCP - General Internal Medicine 05/25/13 07/16/17 Cheryl Calderon MD [facility] Medicine [address] [place] [address] PCP - General Internal Medicine 07/17/17 documented as of this encounter
--- OUTSIDE RECORDS SUMMARY | 2025-03-19 13:58 | XMS_ITS | Encounter Summary ---
Author Organization [facility] Address [address] [place] [address] Care Team Providers Care Industrial Refrigeration Mechanic Name Role Phone Cheryl Calderon MD Primary Care Provider [phone] Reason for Visit * Reason Comments Appointment Encounter Details Date Type Department Care Team ([facility] st Contact Info) Description 01/12/2019 Telephone [facility] Hematology/Oncology 1 [facility] [address] [place] [phone] Ita Anne RN [address] [place] [address] Appointment Social History Tobacco Use Types Packs/Day [...] Phone 01/19/19 3:10 PM Lyndsay Lopez MD [facility] Ophthalmology [phone] 01/26/19 9:30 AM EAP CHEMO [place] HEM ONC [facility] Hematology/Oncology [phone] 01/30/19 2:40 PM Liliana Calderon NP [facility] Hematology/Oncology [phone] Patient's is aware of the appointment. * Telephone Encounter - Liliana Calderon NP - 01/14/2019 5:28 PM EDT To schedule a follow-up visit for this patient within the week of Rituxan infusion. Thanks! * Telephone Encounter - Apple Bridges - 01/12/2019 4:44 PM EDT Liliana is not in the office on 01/26/19, she is in [place]. * Telephone Encounter - Ita Anne - [...] on filedocumented in this encounter Care Teams Industrial Refrigeration Mechanic Relationship Specialty Start Date End Date Cheryl Calderon MD [facility] Medicine [address] [place] [address] PCP - General Internal Medicine 07/17/17 documented as of this encounter
--- OUTSIDE RECORDS SUMMARY | 2025-03-19 13:58 | XMS_ITS | Encounter Summary ---
Author Organization [facility] Address [address] [place] [address] Care Team Providers Care Roofer Apprentice Name Role Phone Cheryl Calderon MD Primary Care Provider [phone] Encounter Details Date Type Department Care Team (Late st Contact Info) Description 11/18/2018 Orders Only [facility] Hematology/Oncology 1 [facility] [address] [place] [phone] Liliana Calderon, JULI [address] [place] [address] Social History Tobacco Use Types Packs/Day Years [...] 12:14 AM EDT Narrative Resulting Agency Comment [id number] Liliana Calderon NP LABORATORY Final Result Performing Organization Address [facility] Co de Phone Number [facility] [address] [place] [address] * (ABNORMAL) FERRITIN (11/18/2018 3:38 PM EDT) Ferritin 634(H) 16 - 288 ng/mL [facility] 11/18/2018 3:38 PM EDT 11/19/2018 12:14 AM EDT Narrative Resulting Agency Comment [id number] Liliana Calderon NP LABORATORY Final Result Performing Organization Address City/[facility] Co de Phone Number [facility] [address] [place] [address] * LACTATE DEHYDROGENASE (LDH), SERUM (11/18/2018 3:38 PM EDT) Lactate dehydrogenase 156 120 - 250 U/L [facility] 11/18/2018 3:38 PM EDT 11/19/2018 12:14 AM EDT Narrative Resulting Agency Comment [id number] Liliana Calderon NP LABORATORY Final Result Performing Organization Address City/[facility]/ZIP Co de Phone Number [facility] [address] [place] [address] * (ABNORMAL) CBC INCLUDES DIFFERENTIAL AND PLATELET [...] 12:14 AM EDT Narrative Resulting Agency Comment [id number] Liliana Calderon PUBLICIST LAB SAME DAY RESULT Final Result [facility] [address] [place] [address] documented in this encounter Visit Diagnoses Diagnosis Leukopenia, unspecified type Iron deficiency Iron deficiency anemia, unspecified documented in this encounter Care Teams Roofer Apprentice Relationship Specialty Start Date End Date Cheryl Calderon MD [facility] Adult Medicine [address] [place] [address] PCP - General Internal Medicine 07/17/17 documented as of this encounter
--- OUTSIDE RECORDS SUMMARY | 2025-03-19 13:58 | XMS_ITS | Encounter Summary ---
Author Organization [facility] Address [address] [place] [address] Care Team Providers Care Material Distributor Name Role Phone Cheryl Calderon MD Primary Care Provider [phone] Encounter Details Date Type Department Care Team (Late st Contact Info) Description 07/15/2018 Orders Only [facility] Rheumatology [address] [place] [address] [phone] Melanie Aguirre MD Social History Tobacco Use [...] 12:27 AM EDT Narrative Resulting Agency Comment [id number] us Melanie Aguirre MD LABORATORY Final Result Performing Organization Address City/[facility]/ZIP Co de Phone Number [facility] [address] [place] [address] * (ABNORMAL) ERYTHROCYTE SEDIMENTATION RATE (ESR), WESTERGREN (07/15/2018 4:34 PM EDT) Sedimentation Rate West[place]ren (ESR) 50(H) < OR = 30 mm/h [facility] 07/15/2018 4:34 PM EDT 07/16/2018 12:27 AM EDT Narrative Resulting Agency Comment [id number] us Melanie Aguirre MD LAB SAME DAY RESULT Final Result Performing Organization Address City/[facility]/ZIP Co de Phone Number [facility] [address] [place] [address] * (ABNORMAL) COMPREHENSIVE METABOLIC PANEL WITH GFR [...] higher for people identified as -Australian. EGFR 95 > OR = 60 mL/min/1 [...] MD LABORATORY Final Result [facility] [address] [place] [address] * (ABNORMAL) CBC INCLUDES DIFFERENTIAL AND PLATELET [...] 12:27 AM EDT Narrative Resulting Agency Comment [id number] us Melanie Aguirre MD LAB SAME DAY RESULT Final Result Performing Organization Address City/State/[facility] Co de Phone Number [facility] [address] [place] [address] documented in this encounter Visit Diagnoses Diagnosis Rheumatoid arthritis involving multiple sites with positive rheumatoid factor (HCC) documented in this encounter Care Teams Material Distributor Relationship Specialty Start Date End Date Cheryl Calderon MD [facility] Adult Medicine [address] [place] [id number] PCP - General Internal Medicine 07/17/17 documented as of this encounter
--- OUTSIDE RECORDS SUMMARY | 2025-03-19 13:58 | XMS_ITS | Encounter Summary ---
Author Organization [facility] Address [address] [place] [address] Care Team Providers Care Neon Tube Pumper Name Role Phone Cheryl Calderon MD Primary Care Provider [phone] Encounter Details Date Type Department Care Team (Late st Contact Info) Description 03/14/2018 Orders Only [facility]. Rheumatology [address] [place] [phone] Abel Fierro MD [address] [place] [address] Social History Tobacco Use Types Packs/Day Years [...] yourself, including tying shoelaces and doing buttons? 0 03/14/2018 4:00 PM Chantelle Casey 2. Get in and out of bed? 0 03/14/2018 4:00 PM Chantelle Casey 3. Lift a full cup or glass to your mouth? 0 03/14/2018 4:00 PM Chantelle Casey 4. Walk outdoors on flat ground? 0 03/14/20 18 4:00 PM EST Chantelle Bull 5. Wash and dry your entire body? 0 018 4:00 PM EST Chantelle Bull 6. Bend down to picker operator clot francis from the floor? 0 03/14/2018 4:00 PM EST Chantelle Bull 7. Turn regular faucets on and off? 0 03/14 4:00 PM EST Chantelle Bull 8. Get in and out of a car, bus, train or airplane? 0 03/14/2018 4:00 PM EST Chantelle Bull 9. Walk two miles, if you wish? 3 8 4:00 PM EST Chantelle Bull 10. Participate in recreatio nal activities and sports as you would like, if you wish? 3 03/14/2018 4:00 PM EST Chantelle Bull FN TOTAL 6 03/14/2018 4:00 PM EST Chantelle Vieira FN CONVERSION 2 03/14/2018 4:00 PM EST Chantelle Mariee * Health Assessment Pain Question Question Answer Date of Assessment Author How much pain have you had b ecause of your condition OVER THE PAST WEEK? 1.0 03/14/2018 4:00 PM EST Chantelle Lino PN TOTAL 1 03/14/2018 4:00 PM EST Chantelle Vieira * Affect of Illness and Health Conditions Question Answer Date of Assessment Author PTGL TOTAL 1.5 03/14/2018 4:00 PM EST Chantelle Vieira Considering all the ways in which illness and health conditions may affect you at this time, please indicate below how you are doing? 1.5 03/14/2018 4:00 PM hCantelle Casey * RAPID 3 Question Answer Date of Assessment Author RAPID 3 TOTAL SCORE 4.5 03/14/2018 4:00 PM Chantelle Cedeno documented as of this encounter Plan of [...] 9:19 PM EST Narrative Resulting Agency Comment [id number] us Abel Fierro MD LABORATORY Final Result [facility] [address] [place] [address] * C-REACTIVE PROTEIN (CRP) - INFLAMMATION (03/14/2018 1:47 PM EST) C reactive protein 1.7 <8.0 mg/L [facility] 03/14/2018 1:47 PM EST 03/14/2018 9:19 PM EST Narrative Resulting Agency Comment [id number] us Abel Fierro MD LABORATORY Final Result [facility] [address] [place] [address] * ERYTHROCYTE SEDIMENTATION RATE (ESR), WESTERGREN (03/14/2018 1:47 PM EST) Sedimentation Rate [place] (ESR) 19 < OR = 30 mm/h [facility] 03/14/2018 1:47 PM EST 03/14/2018 9:19 PM EST Narrative Resulting Agency Comment [id number] us Abel Fierro MD LAB SAME DAY RESULT Final Resul t Performing Organization Address [facility] Co de Phone Number [facility] [address] [place] [address] * CREATININE WITH GLOMERULAR FILTRATION RATE, ESTIMATED (EGFR) (03/14/2018 1:47 PM EST) Creatinine 0.70 0.50 - 0.99 mg/dL [facility] Comment: For patients >49 years of age, the reference limit for Creatinine is approximately 13% higher for people identified as -Romanian. GFR 92 > OR = 60 mL/min/1. [...] needs for GFR calculation. Resulting Agency Comment [id number] us Abel Fierro MD LAB SAME DAY RESULT Final Resul t Performing Organization Address City/[facility] Co de Phone Number [facility] [address] [place] [address] * ALANINE AMINOTRANSFERASE (ALT), SERUM (03/14/2018 1:47 PM EST) ALT (SGPT) 18 6 - 29 U/L [facility] 03/14/2018 1:47 PM EST 03/14/2018 9:19 PM EST Narrative Resulting Agency Comment [id number] us Abel Fierro MD LAB SAME DAY RESULT Final Resul t Performing Organization Address City/[facility]/ZIP Co de Phone Number [facility] [address] [place] [address] * ASPARTATE AMINOTRANSFERASE (AST), SERUM (03/14/2018 1:47 PM EST) AST (SGOT) 23 10 - 35 U/L [facility] 03/14/2018 1:47 PM EST 03/14/2018 9:19 PM EST Narrative Resulting Agency Comment [id number] us Abel Fierro MD LAB SAME DAY RESULT Final Resul t Performing Organization Address [facility] de Phone Number [facility] [address] [place] [address] * (ABNORMAL) CBC INCLUDES DIFFERENTIAL AND PLATELET [...] 9:19 PM EST Narrative Resulting Agency Comment [id number] us Abel Fierro MD LAB SAME DAY RESULT Final Resul t [facility] [address] [place] [address] documented in this encounter Visit Diagnoses Diagnosis Rheumatoid arthritis involving multiple sites with positive rheumatoid factor (HCC) documented in this encounter Care Teams Neon Tube Pumper Relationship Specialty Start Date End Date Cheryl Calderon MD [facility] Adult Medicine [address] [place] [id number] PCP - General Internal Medicine 07/17/17 documented as of this encounter
--- OUTSIDE RECORDS SUMMARY | 2025-03-19 13:58 | XMS_ITS | Encounter Summary ---
Author Organization [facility] Address [address] [place] [address] Care Team Providers Care Risk Management Consultant Name Role Phone Alberto Pacheco Primary Care Provider [phone] Charly Saxena Primary Care Provider [phone] Cheryl Calderon MD Primary Care Provider [phone] Encounter Details Date Type Department Care Team (Late st Contact Info) Description 10/28/2012 Orders Only [facility] Rheumatology [address] [place] [phone] Abel Fierro MD [address] [place] [address] Social History Tobacco Use Types Packs/Day Years [...] - 1.05 mg/dL [facility] Comment: {CREATININE {[id number]) For patients >49 years of age, the reference limit for Creatinine is approximately 13% higher for people identified as -Chinese. GFR 91 > OR = 60 mL/min/1. 73m2 [facility] Comment:{eGFR NON-AFR. AMERI CAN {[id number]) GFR () 106 > OR = 60 mL/min/1. 73m2 [facility] Comment:{eGFR AMERIC AN {[id number]) 10/28/2012 2:15 PM EDT 10/28/2012 11:59 PM [...] needs for GFR calculation. Resulting Agency Comment [id number] us Abel Fierro MD LAB SAME DAY RESULT Final Resul t [facility] [address] [place] [address] * ALANINE AMINOTRANSFERASE (ALT), SERUM (10/28/2012 2:15 PM EDT) ALT (SGPT) 21 6 - 29 U/L [facility] Comment:{ALT {[id number]) 10/28/2012 2:15 PM EDT 10/28/2012 11:59 PM EDT Narrative Resulting Agency Comment [id number] Abel Fierro MD LAB SAME DAY RESULT Final Resul t Performing Organization Address City/[facility]/ZIP Co de Phone Number [facility] [address] [place] [address] * ASPARTATE AMINOTRANSFERASE (AST), SERUM (10/28/2012 2:15 PM EDT) Pathologist [facility] AST (SGOT) 19 10 - 35 U/L [facility] Comment:{AST {[id number]) 10/28/2012 2:15 PM EDT 10/28/2012 11:59 PM EDT Narrative Resulting Agency Comment [id number] Abel Fierro MD LAB SAME DAY RESULT Final Resul t Performing Organization Address [facility] Co de Phone Number [facility] [address] [place] [address] * (ABNORMAL) CBC INCLUDES DIFFERENTIAL AND PLATELET COUNT (10/28/2012 2:15 PM EDT) Pathologist [facility] WBC 10.8 3.8 - 10.8 Thousand/ uL [facility] Comment:{WHITE BLOOD CELL CO UNT {[id number]) RBC 5.06 3.80 - 5.10 Million/u L [facility] Comment:{RED BLOOD CELL COUN T {[id number]) Hemoglobin 12.9 11.7 - 15.5 g/dL [facility] Comment:{HEMOGLOBIN {[id number]) Hematocrit 41.7 35.0 - 45.0 % [facility] Comment:{HEMATOCRIT {[id number]) MCV 82.5 80.0 - 100.0 fL [facility] Comment:{MCV {[id number]) MCH 25.5(L) 27.0 - 33.0 pg [facility] Comment:{MCH {[id number]) MCHC 31.0(L) 32.0 - 36.0 g/dL [facility] Comment:{MCHC {[id number]) RDW 14.6 11.0 - 15.0 % [facility] Comment:{RDW {[id number]) PLT 367 140 - 400 Thousand/ uL [facility] Comment:{PLATELET COUNT {[id number]) MPV 7.3(L) 7.5 - 11.5 fL [facility] Comment:{MPV {[id number]) Neutrophils # 5692 1500 - 7800 cells/uL [facility] Comment:{ABSOLUTE NEUTROPHIL S {[id number]) Lymphocytes # 3964(H) 850 - 3900 cells/uL [facility] Comment:{ABSOLUTE LYMPHOCYTE S {[id number]) Monocytes # 832 200 - 950 cells/uL [facility] Comment:{ABSOLUTE MONOCYTES {[id number]) Eosinophils # 248 15 - 500 cells/uL [facility] Comment:{ABSOLUTE EOSINOPHIL S {[id number]) Basophils # 65 0 - 200 cells/uL [facility] Comment:{ABSOLUTE BASOPHILS {[id number]) Neutrophils % 52.7 % [facility] Comment:{NEUTROPHILS {[id number]) Lymphocytes % 36.7 % [facility] Comment:{LYMPHOCYTES {[id number]) Monocytes % 7.7 % [facility] Comment:{MONOCYTES {[id number]) Eosinophils % 2.3 % [facility] Comment:{EOSINOPHILS {[id number]) Basophils % 0.6 % [facility] Comment:{BASOPHILS {[id number]) 10/28/2012 2:15 PM EDT 10/28/2012 11:59 PM EDT Narrative Resulting Agency Comment [id number] us Abel Fierro MD LAB SAME DAY RESULT Final Resul t [facility] [address] [place] [address] documented in this encounter Visit Diagnoses Diagnosis Rheumatoid arthritis(714.0) Rheumatoid arthritis documented in this encounter Care Teams Risk Management Consultant Relationship Specialty Start Date End Date Alberto Pacheco [address] [place] [address] PCP - General 07/19/08 05/24/13 Charly Saxena [facility] [address] [place] [address] PCP - General Internal Medicine 05/25/13 07/16/17 Cheryl Calderon MD [facility] Adult Medicine [address] [place] [address] PCP - General Internal Medicine 07/17/17 documented as of this encounter
--- OUTSIDE RECORDS SUMMARY | 2025-03-19 13:58 | XMS_ITS | Encounter Summary ---
Author Organization [facility] Address [address] [place] [address] Care Team Providers Care Sales Assoc Name Role Phone Cheryl Calderon MD Primary Care Provider [phone] Encounter Details Date Type Department Care Team (Late st Contact Info) Description 09/30/2018 Orders Only [facility]. Rheumatology [address] [place] [phone] Melanie Aguirre MD Social History Tobacco Use [...] involving multiple sites with positive rheumatoid factor SM/CHANGE MANAGEMENT SPECIALIST ANTIBODY Routine 09/30/2018 11:38 AM EDT Rheumatoid arthritis involving multiple sites with positive rheumatoid factor CHANGE MANAGEMENT SPECIALIST ANTIBODY Routine 09/30/2018 11:38 AM EDT Rheumatoid [...] 9:04 PM EDT Narrative Resulting Agency Comment [id number] us Melanie Aguirre MD LABORATORY Final Result Performing Organization Address City/[facility]/ZIP Co de Phone Number [facility] [address] [place] [address] * (ABNORMAL) SJOGRENS SYNDROME ANTIBODIES (SSA AND SSB) (09/30/2018 11:38 AM EDT) Sjogrens syndrome-A extractable nuclear Ab 4.1 POS(A) <1.0 NEG AI [facility] Sjogrens syndrome-B extractable nuclear Ab <1.0 NEG <1.0 NEG AI [facility] 09/30/2018 11:3 8 AM EDT 09/30/2018 9:04 PM EDT Narrative Resulting Agency Comment [id number] us Melanie Aguirre MD LABORATORY Final Result Performing Organization Address [facility] Co de Phone Number [facility] [address] [place] [address] * (ABNORMAL) ERYTHROCYTE SEDIMENTATION RATE (ESR), WESTERGREN (09/30/2018 11:38 AM EDT) Sedimentation Rate [place] (ESR) 45(H) < OR = 30 mm/h [facility] 09/30/2018 11:3 8 AM EDT 09/30/2018 9:04 PM EDT Narrative Resulting Agency Comment [id number] us Melanie Aguirre MD LAB SAME DAY RESULT Final Result Performing Organization Address City/[facility] Co de Phone Number [facility] [address] [place] [address] * CHANGE MANAGEMENT SPECIALIST ANTIBODY (09/30/2018 11:38 AM EDT) Ribonucleoprotein extractable nuclear Ab <1.0 NEG <1.0 NEG AI [facility] 09/30/2018 11:3 8 AM EDT 09/30/2018 9:04 PM EDT Narrative Resulting Agency Comment [id number] us Melanie Aguirre MD LABORATORY Final Result [facility] [address] [place] [address] * QUANTIFERON-TB GOLD (09/30/2018 11:38 AM EDT) Quantiferon(R)-TB Gold Plus NEGATIVE NEGATIVE [facility] Comment: Negative test result. M. tuberculosis complex infection unlikely. NIL 0.02 IU/mL [facility] MITOGEN-NIL 0.77 IU/mL [facility] Mycobacterium tuberculosis tuberculin stimulated gamma interferon^correc shyay for background 0.01 IU/mL [facility] TB2-NIL [...] T-lymphocytes. For additional information, please refer to https://education.BlackJet/faq/JHK311 (This link is being provided for informational/ educational purposes only.) 09/30/2018 11:3 8 AM EDT 09/30/2018 9:04 PM EDT Narrative Resulting Agency Comment [id number] us Melanie Aguirre MD LABORATORY Final Result [facility] [address] [place] [address] * HEPATITIS C AB WITH REFLEX TO RNA PCR, SERUM (09/30/2018 11:38 AM EDT) Hepatitis C virus Ab NON-REACT [facility] NON-REACT [facility] Hepatitis C virus Ab Signal/Cutoff 0.01 <1.00 [facility] Comment: HCV antibody was non-reactive. There is no laboratory evidence of HCV infection. In most cases, no further action is required. However, if recent HCV exposure is suspected, a test for HCV RNA (test code 04669) is suggested. For additional information please refer to http://education.BlackJet/faq/MVI29b9 (This link is being provided for informational/ educational purposes only.) 09/30/2018 11:3 8 AM EDT 09/30/2018 9:04 PM EDT Narrative Resulting Agency Comment [id number] us Melanie Aguirre MD LABORATORY Final Result Performing Organization Address [facility] Co de Phone Number [facility] [address] [place] [id number] * HEPATITIS B SURFACE ANTIGEN (09/30/2018 11:38 AM EDT) Hepatitis B virus surface Ag NON-REACTI VE NON-REACT [facility] 09/30/2018 11:3 8 AM EDT 09/30/2018 9:04 PM EDT Narrative Resulting Agency Comment [id number] us Melanie Aguirre MD LABORATORY Final Result Performing Organization Address [facility] de Phone Number [facility] [address] [place] [address] * (ABNORMAL) C-REACTIVE PROTEIN (CRP) - INFLAMMATION (09/30/2018 11:38 AM EDT) C reactive protein 10.9(H) <8.0 mg/L [facility] 09/30/2018 11:3 8 AM EDT 09/30/2018 9:04 PM EDT Narrative Resulting Agency Comment [id number] us Melanie Aguirre MD LABORATORY Final Result Performing Organization Address [facility] Co de Phone Number [facility] [address] [place] [address] * (ABNORMAL) COMPREHENSIVE METABOLIC PANEL WITH GFR [...] approximately 13% higher for people identified as -[place]. EGFR 77 > OR = 60 mL/min/1 [...] needs for GFR calculation. Resulting Agency Comment [id number] us Melanie Aguirre MD LABORATORY Final Result Performing Organization Address City/[facility]/ZIP Co de Phone Number [facility] [address] [place] [address] * (ABNORMAL) CYCLIC CITRULLINATEDPEPTIDE CCP AB IGG (09/30/2018 11:38 AM EDT) Pathologist [facility] CCP Ab, IgG 45(H) UNITS [facility] Comment: Reference Range Negative: <20 Weak Positive: 20-39 Moderate Positive: 40-59 Strong Positive: >59 09/30/2018 11:3 8 AM EDT 09/30/2018 9:04 PM EDT Narrative Resulting Agency Comment [id number] us Melanie Aguirre MD LABORATORY Final Result Performing Organization Address [facility] de Phone Number [facility] [address] [place] [address] * (ABNORMAL) CBC INCLUDES DIFFERENTIAL AND PLATELET COUNT (09/30/2018 11:38 AM EDT) Pathologist [facility] WBC 7.4 3.8 - 10.8 Thousand/u L [...] 9:04 PM EDT Narrative Resulting Agency Comment [id number] us Melanie Aguirre MD LAB SAME DAY RESULT Final Result Performing Organization Address [facility] Co de Phone Number [facility] [address] [place] [address] * SM/CHANGE MANAGEMENT SPECIALIST ANTIBODY (09/30/2018 11:38 AM EDT) Arevalo extractable nuclear Ab+Ribonucleopr otein extractable nuclear Ab <1.0 NEG <1.0 NEG AI [facility] 09/30/2018 11:3 8 AM EDT 09/30/2018 9:04 PM EDT Narrative Resulting Agency Comment [id number] us Melanie Aguirre MD LABORATORY Final Result Performing Organization Address [facility] de Phone Number [facility] [address] [place] [address] * DNA (DS) ANTIBODY (09/30/2018 11:38 AM EDT) Dna (DS) Antibody <1 IU/mL [facility] Comment: IU/mL Interpretation < or = 4 Negative 5-9 Indeterminate > or = 10 Positive 09/30/2018 11:3 8 AM EDT 09/30/2018 9:04 PM EDT Narrative Resulting Agency Comment [id number] us Melanie Aguirre MD LABORATORY Final Result Performing Organization Address [facility] de Phone Number [facility] [address] [place] [address] * PASTORA IFA, W/ REFLEX TO TITER/PATTERN/COMPREHENSIVE [...] for interpretation of all antibodies in the Mutual, prevalence, and association with diseases at http://education.[employer] Fitness/ faq/CVS035 09/30/2018 11:3 8 AM EDT 09/30/2018 9:04 PM EDT Narrative Resulting Agency Comment [id number] Melanie Aguirre MD LABORATORY Final Result [facility] [address] [place] [address] documented in this encounter Visit Diagnoses Diagnosis Rheumatoid arthritis involving multiple sites with positive rheumatoid factor (HCC) documented in this encounter Care Teams Sales Assoc Relationship Specialty Start Date End Date Cheryl Calderon MD [facility] Adult Medicine [address] [place] [address] PCP - General Internal Medicine 07/17/17 documented as of this encounter
--- OUTSIDE RECORDS SUMMARY | 2025-03-19 13:58 | XMS_ITS | Encounter Summary ---
Author Organization [facility] Address [address] [place] [address] Care Team Providers Care Senior Mortgage Underwriter Name Role Phone Charly Saxena Primary Care Provider [phone] Cheryl Calderon MD Primary Care Provider [phone] Encounter Details Date Type Department Care Team (Late st Contact Info) Description 02/10/2015 Orders Only [facility] Rheumatology [address] [place] [address] Abel Fierro MD [address] [place] [address] Social History Tobacco Use Types Packs/Day Years [...] EDT) C reactive protein 0.45 <0.80 mg/dL [facility] Comment: {C-REACTIVE PROTEIN {[id number]) Please be advised that patients taking Carboxypenicillins may exhibit falsely decreased C-Reactive Protein levels due to an analytical interference in this assay. 02/10/2015 12:2 9 PM EDT 02/10/2015 9:25 PM EDT Narrative Resulting Agency Comment [id number] us Abel Fierro MD LABORATORY Final Result Performing Organization Address [facility] Co de Phone Number [facility] [address] [place] [address] * ERYTHROCYTE SEDIMENTATION RATE (ESR), WESTERGREN (02/10/2015 12:29 PM EDT) Sedimentation Rate Westegren (ESR) 6 < OR = 30 mm/h [facility] Comment:{SED RATE BY MODIFIE D WESTERGREN {[id number]) 02/10/2015 12:2 9 PM EDT 02/10/2015 9:25 PM EDT Narrative Resulting Agency Comment [id number] us Abel Fierro MD LAB SAME DAY RESULT Final Resul t Performing Organization Address [facility] de Phone Number [facility] [address] [place] [address] * CREATININE WITH GLOMERULAR FILTRATION RATE, ESTIMATED (EGFR) (02/10/2015 12:29 PM EDT) Creatinine 0.80 0.50 - 0.99 mg/dL [facility] Comment: {CREATININE {[id number]) For patients >49 years of age, the reference limit for Creatinine is approximately 13% higher for people identified as -Micronesian. GFR 80 > OR = 60 mL/min/1. 73m2 [facility] Comment:{eGFR NON-AFR. AMERI CAN {[id number]) GFR () 93 > OR = 60 mL/min/1. 73m2 [facility] Comment:{eGFR AMERIC AN {[id number]) 02/10/2015 12:2 9 PM EDT 02/10/2015 9:25 [...] needs for GFR calculation. Resulting Agency Comment [id number] Abel Fierro MD LAB SAME DAY RESULT Final Resul t Performing Organization Address [facility] de Phone Number [facility] [address] [place] [address] * (ABNORMAL) ALANINE AMINOTRANSFERASE (ALT), SERUM (02/10/2015 12:29 PM EDT) ALT (SGPT) 37(H) 6 - 29 U/L [facility] Comment:{ALT {[id number]) 02/10/2015 12:2 9 PM EDT 02/10/2015 9:25 PM EDT Narrative Resulting Agency Comment [id number] Abel Fierro MD LAB SAME DAY RESULT Final Resul t Performing Organization Address [facility] de Phone Number [facility] [address] [place] [address] * ASPARTATE AMINOTRANSFERASE (AST), SERUM (02/10/2015 12:29 PM EDT) AST (SGOT) 26 10 - 35 U/L [facility] Comment:{AST {[id number]) 02/10/2015 12:2 9 PM EDT 02/10/2015 9:25 PM EDT Narrative Resulting Agency Comment [id number] Abel Fierro MD LAB SAME DAY RESULT Final Resul t Performing Organization Address [facility] de Phone Number [facility] [address] [place] [address] * (ABNORMAL) CBC INCLUDES DIFFERENTIAL AND PLATELET COUNT (02/10/2015 12:29 PM EDT) WBC 10.5 3.8 - 10.8 Thousand/ uL [facility] Comment:{WHITE BLOOD CELL CO UNT {[id number]) RBC 6.07(H) 3.80 - 5.10 Million/u L [facility] Comment:{RED BLOOD CELL COUN T {[id number]) Hemoglobin 15.7(H) 11.7 - 15.5 g/dL [facility] Comment:{HEMOGLOBIN {[id number]) Hematocrit 48.6(H) 35.0 - 45.0 % [facility] Comment:{HEMATOCRIT {[id number]) MCV 80.1 80.0 - 100.0 fL [facility] Comment:{MCV {[id number]) MCH 25.8(L) 27.0 - 33.0 pg [facility] Comment:{MCH {[id number]) MCHC 32.2 32.0 - 36.0 g/dL [facility] Comment:{MCHC {[id number]) RDW 15.6(H) 11.0 - 15.0 % [facility] Comment:{RDW {[id number]) PLT 347 140 - 400 Thousand/ uL [facility] Comment:{PLATELET COUNT {[id number]) MPV 7.6 7.5 - 11.5 fL [facility] Comment:{MPV {[id number]) Neutrophils # 7455 1500 - 7800 cells/uL [facility] Comment:{ABSOLUTE NEUTROPHIL S {[id number]) Lymphocytes # 1932 850 - 3900 cells/uL [facility] Comment:{ABSOLUTE LYMPHOCYTE S {[id number]) Monocytes # 861 200 - 950 cells/uL [facility] Comment:{ABSOLUTE MONOCYTES {[id number]) Eosinophils # 221 15 - 500 cells/uL [facility] Comment:{ABSOLUTE EOSINOPHIL S {[id number]) Basophils # 32 0 - 200 cells/uL [facility] Comment:{ABSOLUTE BASOPHILS {[id number]) Neutrophils % 71.0 % [facility] Comment:{NEUTROPHILS {[id number]) Lymphocytes % 18.4 % [facility] Comment:{LYMPHOCYTES {[id number]) Monocytes % 8.2 % [facility] Comment:{MONOCYTES {[id number]) Eosinophils % 2.1 % [facility] Comment:{EOSINOPHILS {[id number]) Basophils % 0.3 % [facility] Comment:{BASOPHILS {[id number]) 02/10/2015 12:2 9 PM EDT 02/10/2015 9:25 PM EDT Narrative Resulting Agency Comment [id number] us Abel Fierro MD LAB SAME DAY RESULT Final Resul t [facility] [address] [place] [address] documented in this encounter Visit Diagnoses Diagnosis Rheumatoid arthritis involving both feet, unspecified rheumatoid factor presence (HCC) [M06.071, M06.072] documented in this encounter Care Teams Senior Mortgage Underwriter Relationship Specialty Start Date End Date Charly Saxena [facility] [address] [place] [address] PCP - General Internal Medicine 05/25/13 07/16/17 Cheryl Calderon MD [facility] Medicine [address] [place] [address] PCP - General Internal Medicine 07/17/17 documented as of this encounter
--- OUTSIDE RECORDS SUMMARY | 2025-03-19 13:58 | XMS_ITS | Encounter Summary ---
Author Organization [facility] Address [address] [place] [address] Care Team Providers Care Urban Gardening Specialist Name Role Phone Cheryl Calderon MD Primary Care Provider Reason for Visit * Reason Comments E-prescribing Refill Request Encounter Details Date Type Department Care Team (Late st Contact Info) Description 09/19/2017 Refill [facility] Rheumatology [address] [place] [address] Abel Fierro MD [address] [place] [address] E-prescribing Refill Request Social History Tobacco Use [...] Notes * Telephone Encounter - Chantelle Persaud - 11/01/2017 9:00 AM EDT Left second voicemail for patient to call back to see how much Prednisone she is taking. * Telephone Encounter - Chantelle Persaud - 09/19/2017 2:39 PM EDT LEFT VOICEMAIL [...] Phone 01/16/18 1:00 PM Abel Fierro MD [facility] Rheumatology [phone] Pertinent lab results: Lab Results Component Value [...] ??? Elbow pain 06/03/2012 ??? Rheumatoid arthritis(714.0) ([facility]) 09/29/2010 Followed by rheumatology treated [...] AN EMPTY STOMACH 6 ??? Nystatin (NYSTOP) [id number] UNIT/GM Powder APPLY TO BUTTOCKS THREE TIMES [...] on filedocumented in this encounter Care Teams Urban Gardening Specialist Relationship Specialty Start Date End Date Cheryl Calderon MD [facility] Medicine [address] [place] [address] PCP - General Internal Medicine 07/17/17 documented as of this encounter
--- OUTSIDE RECORDS SUMMARY | 2025-03-19 13:58 | XMS_ITS | Encounter Summary ---
Author Organization [facility] Address [address] [place] [address] Care Team Providers Care Table Maker Name Role Phone Alberto Pacheco Primary Care Provider [phone] Unknown Pcp, Non Rmg Primary Care Provider Unava ilCharly Antoine Primary Care Provider [phone] Charly Saxena Primary Care Provider [phone] Cheryl Calderon MD Primary Care Provider [phone] Encounter Details Date Type Department Care Team (Late st Contact Info) Description 03/14/2006 Orders Only [facility] Rheumatology [address] [place] [address] Nikkie Moss, HEALTH EDUCATION AIDE [address] [place], [place] [id number] Social History Tobacco Use Types Packs/Day Years [...] on filedocumented in this encounter Care Teams Table Maker Relationship Specialty Start Date End Date Alberto Pacheco [address] [place] [address] PCP - General 07/19/08 05/24/13 Unknown Pcp, Non Rmg PCP - General 06/30/08 07/18/08 Charly Saxena [facility] [address] [place] [address] PCP - General 01/18/06 06/29/08 Chraly Saxena [facility] [address] [place] [address] PCP - General Internal Medicine 05/25/13 07/16/17 Cheryl Calderon MD [facility] Medicine [address] [place] [address] PCP - General Internal Medicine 07/17/17 documented as of this encounter
--- OUTSIDE RECORDS SUMMARY | 2025-03-19 13:58 | XMS_ITS | Encounter Summary ---
Author Organization [facility] Address [address] [place] [address] Care Team Providers Care Professor Of Historical Theology Name Role Phone Charly Saxena Primary Care Provider [phone] Cheryl Calderon MD Primary Care Provider [phone] Encounter Details Date Type Department Care Team (Late st Contact Info) Description 07/29/2014 Orders Only [facility] Rheumatology [address] [place] [address] Abel Fierro MD [address] [place] [address] Social History Tobacco Use Types Packs/Day Years [...] Routine 07/29/2014 11:19 AM EDT Rheumatoid arthritis(714.0) ([facility]) ERYTHROCYTE SEDIMENTATION RATE (ESR) Routine 07/29/2014 11:19 AM EDT Rheumatoid arthritis(714.0) ([facility]) CBC INCLUDES DIFFERENTIAL AND PLATELET COUNT Routine 07/29/2014 11:19 AM EDT Rheumatoid arthritis(714.0) ([facility]) ALANINE AMINOTRANSFERASE (ALT), SERUM Routine 07/29/2014 11:19 AM EDT Rheumatoid arthritis(714.0) ([facility]) ASPARTATE AMINOTRANSFERASE (AST), SERUM Routine 07/29/2014 11:19 AM EDT Rheumatoid arthritis(714.0) ([facility]) CREATININE WITH GLOMERULAR FILTRATION RATE, ESTIMATED (EGFR) Routine 07/29/2014 11:19 AM EDT Rheumatoid arthritis(714.0) ([facility]) documented in this encounter Results * Due to [place] state law, this organization might not be sharing negative HIV tests. * C-REACTIVE PROTEIN (CRP) - INFLAMMATION (07/29/2014 11:19 AM EDT) C reactive protein 0.22 <0.80 mg/dL [facility] Comment: {C-REACTIVE PROTEIN {[id number]) Please be advised that patients taking Carboxypenicillins may exhibit falsely decreased C-Reactive Protein levels due to an analytical interference in this assay. 07/29/2014 11:1 9 AM EDT 07/29/2014 4:29 PM EDT Narrative Resulting Agency Comment [id number] us Abel Fierro MD LABORATORY Final Result [facility] [address] [place] [address] * ERYTHROCYTE SEDIMENTATION RATE (ESR), KUNAL (07/29/2014 11:19 AM EDT) Sedimentation Rate Westegren (ESR) 14 < OR = 30 mm/h [facility] Comment:{SED RATE BY MODIFIE D SHAJIREN {[id number]) 07/29/2014 11:1 9 AM EDT 07/29/2014 4:29 PM EDT Narrative Resulting Agency Comment [id number] us Abel Fierro MD LAB SAME DAY RESULT Final Resul t Performing Organization Address [facility] Co de Phone Number [facility] [address] [place] [address] * CREATININE WITH GLOMERULAR FILTRATION RATE, ESTIMATED (EGFR) (07/29/2014 11:19 AM EDT) Creatinine 0.93 0.50 - 1.05 mg/dL [facility] Comment: {CREATININE {[id number]) For patients >49 years of age, the reference limit for Creatinine is approximately 13% higher for people identified as -Belgian. GFR 67 > OR = 60 mL/min/1. 73m2 [facility] Comment:{eGFR NON-AFR. AMERI CAN {[id number]) GFR () 78 > OR = 60 mL/min/1. 73m2 [facility] Comment:{eGFR AMERIC AN {[id number]) 07/29/2014 11:1 9 AM EDT 07/29/2014 4:29 [...] needs for GFR calculation. Resulting Agency Comment [id number] us Abel Fierro MD LAB SAME DAY RESULT Final Resul t Performing Organization Address City/[facility]/ZIP Co de Phone Number [facility] [address] [place] [address] * ALANINE AMINOTRANSFERASE (ALT), SERUM (07/29/2014 11:19 AM EDT) ALT (SGPT) 19 6 - 29 U/L [facility] Comment:{ALT {[id number]) 07/29/2014 11:1 9 AM EDT 07/29/2014 4:29 PM EDT Narrative Resulting Agency Comment [id number] us Abel Fierro MD LAB SAME DAY RESULT Final Resul t Performing Organization Address City/[facility] Co de Phone Number [facility] [address] [place] [address] * ASPARTATE AMINOTRANSFERASE (AST), SERUM (07/29/2014 11:19 AM EDT) AST (SGOT) 17 10 - 35 U/L [facility] Comment:{AST {[id number]) 07/29/2014 11:1 9 AM EDT 07/29/2014 4:29 PM EDT Narrative Resulting Agency Comment [id number] us Abel Fierro MD LAB SAME DAY RESULT Final Resul t Performing Organization Address [facility] de Phone Number [facility] [address] [place] [address] * (ABNORMAL) CBC INCLUDES DIFFERENTIAL AND PLATELET COUNT (07/29/2014 11:19 AM EDT) WBC 10.9(H) 3.8 - 10.8 Thousand/ uL [facility] Comment:{WHITE BLOOD CELL CO UNT {[id number]) RBC 5.63(H) 3.80 - 5.10 Million/u L [facility] Comment:{RED BLOOD CELL COUN T {[id number]) Hemoglobin 14.8 11.7 - 15.5 g/dL [facility] Comment:{HEMOGLOBIN {[id number]) Hematocrit 45.7(H) 35.0 - 45.0 % [facility] Comment:{HEMATOCRIT {[id number]) MCV 81.1 80.0 - 100.0 fL [facility] Comment:{MCV {[id number]) MCH 26.2(L) 27.0 - 33.0 pg [facility] Comment:{MCH {[id number]) MCHC 32.3 32.0 - 36.0 g/dL [facility] Comment:{MCHC {[id number]) RDW 15.5(H) 11.0 - 15.0 % [facility] Comment:{RDW {[id number]) PLT 331 140 - 400 Thousand/ uL [facility] Comment:{PLATELET COUNT {[id number]) MPV 7.3(L) 7.5 - 11.5 fL [facility] Comment:{MPV {[id number]) Neutrophils # 5875 1500 - 7800 cells/uL [facility] Comment:{ABSOLUTE NEUTROPHIL S {[id number]) Lymphocytes # 3706 850 - 3900 cells/uL [facility] Comment:{ABSOLUTE LYMPHOCYTE S {[id number]) Monocytes # 981(H) 200 - 950 cells/uL [facility] Comment:{ABSOLUTE MONOCYTES {[id number]) Eosinophils # 294 15 - 500 cells/uL [facility] Comment:{ABSOLUTE EOSINOPHIL S {[id number]) Basophils # 44 0 - 200 cells/uL [facility] Comment:{ABSOLUTE BASOPHILS {[id number]) Neutrophils % 53.9 % [facility] Comment:{NEUTROPHILS {[id number]) Lymphocytes % 34.0 % [facility] Comment:{LYMPHOCYTES {[id number]) Monocytes % 9.0 % [facility] Comment:{MONOCYTES {[id number]) Eosinophils % 2.7 % [facility] Comment:{EOSINOPHILS {[id number]) Basophils % 0.4 % [facility] Comment:{BASOPHILS {[id number]) 07/29/2014 11:1 9 AM EDT 07/29/2014 4:29 PM EDT Narrative Resulting Agency Comment [id number] us Abel Fierro MD LAB SAME DAY RESULT Final Resul t [facility] [address] [place] [address] documented in this encounter Visit Diagnoses Diagnosis Rheumatoid arthritis(714.0) Rheumatoid arthritis documented in this encounter Care Teams Professor Of Historical Theology Relationship Specialty Start Date End Date Charly Saxena [facility] [place], [place] [id number] PCP - General Internal Medicine 05/25/13 07/16/17 Cheryl Calderon MD [address] [address] PCP - General Internal Medicine 07/17/17 documented as of this encounter
--- OUTSIDE RECORDS SUMMARY | 2025-03-19 13:58 | XMS_ITS | Encounter Summary ---
Author Organization [facility] Address [address] [place] [address] Care Team Providers Care Refinery Operator Assistant Name Role Phone Charly Saxena Primary Care Provider [phone] Cheryl Calderon MD Primary Care Provider [phone] Encounter Details Date Type Department Care Team (Late st Contact Info) Description 10/15/2013 Orders Only [facility] Rheumatology [address] [place] [address] Abel Fierro MD [address] [place] [address] Social History Tobacco Use Types Packs/Day Years [...] arthritis documented in this encounter Care Teams Refinery Operator Assistant Relationship Specialty Start Date End Date Charly Saxena [facility] [address] [place] [address] PCP - General Internal Medicine 05/25/13 07/16/17 Cheryl Calderon MD [facility] Adult Medicine [address] [place] [address] PCP - General Internal Medicine 07/17/17 documented as of this encounter
--- OUTSIDE RECORDS SUMMARY | 2025-03-19 13:58 | XMS_ITS | Encounter Summary ---
Author Organization [facility] Address [address] [place] [address] Care Team Providers Care Cardroom Drawing Runner Name Role Phone Cheryl Calderon MD Primary Care Provider Encounter Details Date Type Department Care Team (Late st Contact Info) Description 01/27/2019 Orders Only [facility] Hematology/Oncology [address] [facility] [address] [place] [phone] Liliana Calderon, JULI [address] [place] [address] Social History Tobacco Use Types Packs/Day Years [...] 1:19 AM EDT Narrative Resulting Agency Comment [id number] Liliana Calderon NP LAB SAME DAY RESULT Final Result Performing Organization Address [facility] Co de Phone Number [facility] [address] [place] [address] * (ABNORMAL) FERRITIN (01/27/2019 3:23 PM EDT) Ferritin 687(H) 16 - 288 ng/mL [facility] 01/27/2019 3:23 PM EDT 01/28/2019 1:19 AM EDT Narrative Resulting Agency Comment [id number] Liliana Erazo [employer] [facility] [facility] Final Result Performing Organization Address [facility] Co de Phone Number [facility] [address] [place] [address] * (ABNORMAL) IRON PROFILE (IRON/TIBC), SERUM (01/27/2019 3:23 PM EDT) Iron 14(L) 45 - 160 mcg/dL [facility] Iron binding capacity 223(L) 250 - 450 mcg/dL (calc) [facility] Iron saturation 6(L) 16 - 45 % (calc) [facility] 01/27/2019 3:23 PM EDT 01/28/2019 1:19 AM EDT Narrative Resulting Agency Comment [id number] Liliana Calderon [employer] [facility] [facility] Final Result [facility] [address] [place] [address] documented in this encounter Visit Diagnoses Diagnosis Iron deficiency Iron deficiency anemia, unspecified Leukopenia, unspecified type Rheumatoid arthritis involving multiple sites with positive rheumatoid factor (HCC) documented in this encounter Care Teams Cardroom Drawing Runner Relationship Specialty Start Date End Date Cheryl Calderon MD [facility] Adult Medicine [address] [place] [address] PCP - General Internal Medicine 07/17/17 documented as of this encounter
--- OUTSIDE RECORDS SUMMARY | 2025-03-19 13:58 | XMS_ITS | Encounter Summary ---
Author Organization [facility] Address [address] [place] [address] Care Team Providers Care Wreath Machine Tender Name Role Phone Charly Saxena Primary Care Provider [phone] Cheryl Calderon MD Primary Care Provider [phone] Encounter Details Date Type Department Care Team (Late st Contact Info) Description 07/15/[address] [facility] Rheumatology [address] [place] [address] Abel Fierro MD [address] [place] [address] Social History Tobacco Use Types Packs/Day Years [...] including tying shoelaces and doing buttons? 0 07/15/2017 3:00 PM EDT Rasheed Prasad 2. Get in and out of bed? 0 07/15/2017 3:00 PM EDT Alejandra Prasad 3. Lift a full cup or glass to your mouth? 0 07/15/2017 3:00 PM EDT Alejandra Prasad 4. Walk outdoors on flat ground? 0 07/16/19 18 3:00 PM EDT Alejandra Prasad 5. Wash and dry your entire body? 0 018 3:00 PM EDT Alejandra Prasad 6. Bend down to parts picker clot francis from the floor? 1 07/15/2017 3:00 PM EDT Alejandra Prasad 7. Turn regular faucets on and off? 0 07/15 3:00 PM EDT Alejandra Prasad 8. Get in and out of a car, bus, train or airplane? 0 07/15/2017 3:00 PM EDT Alejandra Prasad 9. Walk two miles, if you wish? 3 8 3:00 PM EDT Alejandra Prasad 10. Participate in recreatio nal activities and sports as you would like, if you wish? 3 07/15/2017 3:00 PM EDT Alejandra Prasad FN TOTAL 7 07/15/2017 3:00 PM EDT Alejandra Prasad FN CONVERSION 2.3 07/15/2017 3:00 PM EDT Alejandra Alberto * Health Assessment Pain Question Question Answer Date of Assessment Author How much pain have you had b ecause of your condition OVER THE PAST WEEK? 0 07/15/2017 3:00 PM EDT Alejandra Mccain PN TOTAL 0 07/15/2017 3:00 PM EDT Alejandra Prasad * Affect of Illness and Health Conditions Question Answer Date of Assessment Author PTGL TOTAL 2 07/15/2017 3:00 PM EDT Alejandra Prasad Considering all the ways in which illness and health conditions may affect you at this time, please indicate below how you are doing? 2.0 07/15/2017 3:00 PM EDAlejandra Ho * RAPID 3 Question Answer Date of Assessment Author RAPID 3 TOTAL SCORE 4.3 07/15/2017 3:00 PM ED T Alejandra Prasad documented as of this encounter Plan of [...] higher for people identified as -Grenadian. GFR 93 > OR = 60 mL/min/1. [...] needs for GFR calculation. Resulting Agency Comment [id number] us Abel Fierro MD LAB SAME DAY RESULT Final Resul t [facility] [address] [place] [address] * ALANINE AMINOTRANSFERASE (ALT), SERUM (07/15/2017 1:44 PM EDT) ALT (SGPT) 23 6 - 29 U/L [facility] 07/15/2017 1:44 PM EDT 07/15/2017 6:18 PM EDT Narrative Resulting Agency Comment [id number] Abel Fierro MD LAB SAME DAY RESULT Final Resul t Performing Organization Address City/[facility] de Phone Number [facility] [address] [place] [address] * ASPARTATE AMINOTRANSFERASE (AST), SERUM (07/15/2017 1:44 PM EDT) Pathologist [facility] AST (SGOT) 28 10 - 35 U/L [facility] 07/15/2017 1:44 PM EDT 07/15/2017 6:18 PM EDT Narrative Resulting Agency Comment [id number] Abel Fierro MD LAB SAME DAY RESULT Final Resul t Performing Organization Address [facility] de Phone Number [facility] [address] [place] [address] * (ABNORMAL) CBC INCLUDES DIFFERENTIAL AND PLATELET COUNT (07/15/2017 1:44 PM EDT) Pathologist [facility] WBC 7.2 3.8 - 10.8 Thousand/u L [...] 6:18 PM EDT Narrative Resulting Agency Comment [id number] us Abel Fierro MD LAB SAME DAY RESULT Final Resul t [facility] [address] [place] [address] documented in this encounter Visit Diagnoses Diagnosis Rheumatoid arthritis involving multiple sites, unspecified rheumatoid factor presence documented in this encounter Care Teams Wreath Machine Tender Relationship Specialty Start Date End Date Charly Saxena [facility] [address] [place] [address] PCP - General Internal Medicine 05/25/13 07/16/17 Cheryl Calderon MD [facility] Adult Medicine [address] [place] [address] PCP - General Internal Medicine 07/17/17 documented as of this encounter
--- OUTSIDE RECORDS SUMMARY | 2025-03-19 13:58 | XMS_ITS | Encounter Summary ---
Author Organization [facility] Address [address] [place] [address] Care Team Providers Care Aadc Plans Staff Officer Name Role Phone Charly Saxena Primary Care Provider [phone] Cheryl Calderon MD Primary Care Provider [phone] Encounter Details Date Type Department Care Team (Late st Contact Info) Description 01/18/2016 Orders [address] [facility] Rheumatology [address] [place] [address] Abel Fierro MD [address] [place] [address] Social History Tobacco Use Types Packs/Day Years [...] - 0.99 mg/dL [facility] Comment: {CREATININE {[id number]) For patients >49 years of age, the reference limit for Creatinine is approximately 13% higher for people identified as -[place]orese. GFR 81 > OR = 60 mL/min/1. 73m2 [facility] Comment:{eGFR NON-AFR. AMERI CAN {[id number]) GFR () 94 > OR = 60 mL/min/1. 73m2 [facility] Comment:{eGFR AMERIC AN {[id number]) 01/18/2016 1:17 PM EDT 01/18/2016 9:39 PM [...] needs for GFR calculation. Resulting Agency Comment [id number] us Abel Fierro MD LAB SAME DAY RESULT Final Resul t [facility] [address] [place] [address] * (ABNORMAL) ALANINE AMINOTRANSFERASE (ALT), SERUM (01/18/2016 1:17 PM EDT) ALT (SGPT) 48(H) 6 - 29 U/L [facility] Comment:{ALT {[id number]) 01/18/2016 1:17 PM EDT 01/18/2016 9:39 PM EDT Narrative Resulting Agency Comment [id number] us Abel Fierro MD LAB SAME DAY RESULT Final Resul t Performing Organization Address City/[facility] Co de Phone Number [facility] [address] [place] [address] * ASPARTATE AMINOTRANSFERASE (AST), SERUM (01/18/2016 1:17 PM EDT) AST (SGOT) 27 10 - 35 U/L [facility] Comment:{AST {[id number]) 01/18/2016 1:17 PM EDT 01/18/2016 9:39 PM EDT Narrative Resulting Agency Comment [id number] us Abel Fierro MD LAB SAME DAY RESULT Final Resul t Performing Organization Address [facility] Co de Phone Number [facility] [address] [place] [address] * (ABNORMAL) CBC INCLUDES DIFFERENTIAL AND PLATELET COUNT (01/18/2016 1:17 PM EDT) WBC 11.4(H) 3.8 - 10.8 Thousand/ uL [facility] Comment:{WHITE BLOOD CELL CO UNT {[id number]) RBC 5.40(H) 3.80 - 5.10 Million/u L [facility] Comment:{RED BLOOD CELL COUN T {[id number]) Hemoglobin 14.3 11.7 - 15.5 g/dL [facility] Comment:{HEMOGLOBIN {[id number]) Hematocrit 45.8(H) 35.0 - 45.0 % [facility] Comment:{HEMATOCRIT {[id number]) MCV 84.8 80.0 - 100.0 fL [facility] Comment:{MCV {[id number]) MCH 26.5(L) 27.0 - 33.0 pg [facility] Comment:{MCH {[id number]) MCHC 31.3(L) 32.0 - 36.0 g/dL [facility] Comment:{MCHC {[id number]) RDW 16.5(H) 11.0 - 15.0 % [facility] Comment:{RDW {[id number]) PLT 289 140 - 400 Thousand/ uL [facility] Comment:{PLATELET COUNT {[id number]) MPV 8.4 7.5 - 11.5 fL [facility] Comment:{MPV {[id number]) Neutrophils # 9793(H) 1500 - 7800 cells/uL [facility] Comment:{ABSOLUTE NEUTROPHIL S {[id number]) Lymphocytes # 809(L) 850 - 3900 cells/uL [facility] Comment:{ABSOLUTE LYMPHOCYTE S {[id number]) Monocytes # 638 200 - 950 cells/uL [facility] Comment:{ABSOLUTE MONOCYTES {[id number]) Eosinophils # 91 15 - 500 cells/uL [facility] Comment:{ABSOLUTE EOSINOPHIL S {[id number]) Basophils # 68 0 - 200 cells/uL [facility] Comment:{ABSOLUTE BASOPHILS {[id number]) Neutrophils % 85.9 % [facility] Comment:{NEUTROPHILS {[id number]) Lymphocytes % 7.1 % [facility] Comment:{LYMPHOCYTES {[id number]) Monocytes % 5.6 % [facility] Comment:{MONOCYTES {[id number]) Eosinophils % 0.8 % [facility] Comment:{EOSINOPHILS {[id number]) Basophils % 0.6 % [facility] Comment:{BASOPHILS {[id number]) 01/18/2016 1:17 PM EDT 01/18/2016 9:39 PM EDT Narrative Resulting Agency Comment [id number] us Abel Fierro MD LAB SAME DAY RESULT Final Resul t [facility] [address] [place] [address] documented in this encounter Visit Diagnoses Diagnosis Rheumatoid arthritis involving multiple sites with positive rheumatoid factor (HCC) [M05.79] documented in this encounter Care Teams Aadc Plans Staff Officer Relationship Specialty Start Date End Date Charly Saxena [facility] [address] [place] [address] PCP - General Internal Medicine 05/25/13 07/16/17 Cheryl Calderon MD [facility] Medicine [address] [place] [address] PCP - General Internal Medicine 07/17/17 documented as of this encounter
--- OUTSIDE RECORDS SUMMARY | 2025-03-19 13:58 | XMS_ITS | Encounter Summary ---
Author Organization [facility] Address [address] [place] [address] Care Team Providers Care Basting Cleaner Name Role Phone Charly Saxena Primary Care Provider [phone] Cheryl Calderon MD Primary Care Provider [phone] Encounter Details Date Type Department Care Team (Late st Contact Info) Description 06/13/2015 Orders Only [facility] Rheumatology [address] [place] [address] Abel Fierro MD [address] [place] [address] Social History Tobacco Use Types Packs/Day Years [...] presence documented in this encounter Care Teams Basting Cleaner Relationship Specialty Start Date End Date Charly Saxena [facility] [place] [address] PCP - General Internal Medicine 05/25/13 07/16/17 Cheryl Calderon MD [facility] Adult Medicine [address] [place] [address] PCP - General Internal Medicine 07/17/17 documented as of this encounter
--- OUTSIDE RECORDS SUMMARY | 2025-03-19 13:58 | XMS_ITS | Encounter Summary ---
Author Organization [facility] Address [address] [place] [address] Care Team Providers Care Grounds/Maintenance Specialist Name Role Phone Cheryl Calderon MD Primary Care Provider [phone] Encounter Details Date Type Department Care Team (Late st Contact Info) Description 12/23/2018 Orders Only [facility] Hematology/Oncology 1 [facility] [address] [place] [address] Liliana Calderon, JULI [address] [place] [address] Social History Tobacco Use Types Packs/Day Years [...] a test for HCV RNA (test code 19958) is suggested. For additional information please refer to http://education.Deal Pepper/faq/TSO46q7 (This link is being provided for informational/ educational purposes only.) 12/23/2018 11:3 2 AM EDT 12/23/2018 11:23 PM EDT Narrative Resulting Agency Comment [id number] Liliana Calderon NP LABORATORY Final Result [facility] [address] [place] [address] * HEPATITIS B CORE ANTIBODY, TOTAL, SERUM (12/23/2018 11:32 AM EDT) Hepatitis B virus core Ab NON-REACTI VE NON-REACT MANOLO [facility] 12/23/2018 11:3 2 AM EDT 12/23/2018 11:23 PM EDT Narrative Resulting Agency Comment [id number] Liliana Nehemiasunder [facility] Final Result Performing Organization Address [facility] Co de Phone Number [facility] [address] [place] [address] * HEPATITIS B SURFACE ANTIGEN (12/23/2018 11:32 AM EDT) Hepatitis B virus surface Ag NON-REACTI VE NON-REACT MANOLO [facility] 12/23/2018 11:3 2 AM EDT 12/23/2018 11:23 PM EDT Narrative Resulting Agency Comment [id number] Liliana Nehemiasunder [facility] Final Result Performing Organization Address [facility] de Phone Number [facility] [address] [place] [address] * (ABNORMAL) HEPATIC FUNCTION PANEL (ALT,AST,ALK PH,BILI'S,TP,ALB) (12/23/2018 11:32 AM EDT) Pathologist [facility] Protein Total (Serum) 5.8(L) 6.1 - 8.1 [...] 11:23 PM EDT Narrative Resulting Agency Comment [id number] Liliana Nehemiasunder [facility] Final Result Performing Organization Address [facility] Co de Phone Number [facility] [address] [place] [address] * CBC INCLUDES DIFFERENTIAL AND PLATELET COUNT [...] 11:23 PM EDT Narrative Resulting Agency Comment [id number] Liliana Calderon [facility] SAME DAY RESULT Final Result Performing Organization Address City/State/[facility] Co de Phone Number [facility] [address] [place] [address] documented in this encounter Visit Diagnoses Diagnosis Rheumatoid arthritis involving multiple sites with positive rheumatoid factor (HCC) documented in this encounter Care Teams Grounds/Maintenance Specialist Relationship Specialty Start Date End Date Cheryl Calderon MD [facility] Adult Medicine [address] [place] [address] PCP - General Internal Medicine 07/17/17 documented as of this encounter
--- OUTSIDE RECORDS SUMMARY | 2025-03-19 13:58 | XMS_ITS | Encounter Summary ---
Author Organization [facility] Address [address] [place] [address] Care Team Providers Care Vending Supervisor Name Role Phone Cheryl Calderon MD Primary Care Provider [phone] Reason for Visit * Reason Comments E-prescribing Refill Request Encounter Details Date Type Department Care Team (Late st Contact Info) Description 02/01/2018 Refill [facility] Rheumatology [address] [place] [address] Abel Fierro MD [address] [place] [address] E-prescribing Refill Request Social History Tobacco Use [...] on filedocumented in this encounter Care Teams Vending Supervisor Relationship Specialty Start Date End Date Cheryl Calderon MD [facility] [address] [place] [address] PCP - General Internal Medicine 07/17/17 documented as of this encounter
--- OUTSIDE RECORDS SUMMARY | 2025-03-19 13:58 | XMS_ITS | Encounter Summary ---
Author Organization [facility] Address [address] [place] [address] Care Team Providers Care Booking Clerk Name Role Phone Charly Saxena Primary Care Provider [phone] Cheryl Calderon MD Primary Care Provider [phone] Reason for Visit * Reason Comments E-prescribing Refill Request Encounter Details Date Type Department Care Team ([facility] st Contact Info) Description 03/18/2017 Refill [facility] Rheumatology [address] [place] [address] Abel Fierro MD [address] [place] [address] E-prescribing Refill Request Social History Tobacco Use [...] to send a request for labs to [facility] in [place], [place] Lab request form sent to the [...] 1:30 PM Abel Fierro MD [facility] Rheumatology [phone] 07/15/17 1:00 PM Abel Fierro MD [facility] Rheumatology [phone] Pertinent lab results: No labs suggested for any medication orders signed or pended in this encounter. Refresh if any orders changed. Allergies: Acetaminophen-codeine; Gold; Opioid analgesics; and Sulfa antibiotics BP Readings from Last 1 Encounters: 12/28/16 (!) 149/85 Patient Active Problem List Diagnosis Date Noted ??? Elbow pain 06/03/2012 ??? Rheumatoid arthritis(714.0) ([facility]LY [facility]) 09/29/2010 Followed by rheumatology treated with methotrexate, [...] MOUTH EVERY DAY 0 ??? Nystatin (NYSTOP) 117921 UNIT/GM Powder APPLY TO BUTTOCKS THREE TIMES [...] on filedocumented in this encounter Care Teams Booking Clerk Relationship Specialty Start Date End Date Charly Saxena [facility] [address] [place] [address] PCP - General Internal Medicine 05/25/13 07/16/17 Cheryl Calderon MD [facility] Medicine [address] [place] [address] PCP - General Internal Medicine 07/17/17 documented as of this encounter
--- OUTSIDE RECORDS SUMMARY | 2025-03-19 13:58 | XMS_ITS | Encounter Summary ---
Author Organization [facility] Address [address] [place] [address] Care Team Providers Care Chicken Boner Name Role Phone Alberto Pacheco Primary Care Provider [phone] Charly Saxena Primary Care Provider [phone] Cheryl aClderon MD Primary Care Provider [phone] Encounter Details Date Type Department Care Team (Late st Contact Info) Description 08/05/2012 Orders Only [facility] Rheumatology [address] [place] [address] Abel Fierro MD [address] [place] [address] Social History Tobacco Use Types Packs/Day Years [...] - 1.05 mg/dL [facility] Comment: {CREATININE {[id number]) For patients >49 years of age, the reference limit for Creatinine is approximately 13% higher for people identified as -Scottish. GFR 82 > OR = 60 mL/min/1. 73m2 [facility] Comment:{eGFR NON-AFR. AMERI CAN {[id number]) GFR () 95 > OR = 60 mL/min/1. 73m2 [facility] Comment:{eGFR AMERIC AN {[id number]) 08/05/2012 12:5 3 PM EDT 08/05/2012 4:46 [...] needs for GFR calculation. Resulting Agency Comment [id number] us Abel Fierro MD LAB SAME DAY RESULT Final Resul t [facility] [address] [place] [address] * (ABNORMAL) CBC INCLUDES DIFFERENTIAL AND PLATELET COUNT (08/05/2012 12:53 PM EDT) WBC 7.8 3.8 - 10.8 Thousand/ uL [facility] Comment:{WHITE BLOOD CELL CO UNT {[id number]) RBC 5.22(H) 3.80 - 5.10 Million/u L [facility] Comment:{RED BLOOD CELL COUN T {[id number]) Hemoglobin 14.0 11.7 - 15.5 g/dL [facility] Comment:{HEMOGLOBIN {[id number]) Hematocrit 44.8 35.0 - 45.0 % [facility] Comment:{HEMATOCRIT {[id number]) MCV 85.8 80.0 - 100.0 fL [facility] Comment:{MCV {[id number]) MCH 26.9(L) 27.0 - 33.0 pg [facility] Comment:{MCH {[id number]) MCHC 31.4(L) 32.0 - 36.0 g/dL [facility] Comment:{MCHC {[id number]) RDW 15.9(H) 11.0 - 15.0 % [facility] Comment:{RDW {[id number]) PLT 305 140 - 400 Thousand/ uL [facility] Comment:{PLATELET COUNT {[id number]) MPV 8.0 7.5 - 11.5 fL [facility] Comment:{MPV {[id number]) Neutrophils # 3237 1500 - 7800 cells/uL [facility] Comment:{ABSOLUTE NEUTROPHIL S {[id number]) Lymphocytes # 3229 850 - 3900 cells/uL [facility] Comment:{ABSOLUTE LYMPHOCYTE S {[id number]) Monocytes # 1014(H) 200 - 950 cells/uL [facility] Comment:{ABSOLUTE MONOCYTES {[id number]) Eosinophils # 273 15 - 500 cells/uL [facility] Comment:{ABSOLUTE EOSINOPHIL S {[id number]) Basophils # 47 0 - 200 cells/uL [facility] Comment:{ABSOLUTE BASOPHILS {[id number]) Neutrophils % 41.5 % [facility] Comment:{NEUTROPHILS {[id number]) Lymphocytes % 41.4 % [facility] Comment:{LYMPHOCYTES {[id number]) Monocytes % 13.0 % [facility] Comment:{MONOCYTES {[id number]) Eosinophils % 3.5 % [facility] Comment:{EOSINOPHILS {[id number]) Basophils % 0.6 % [facility] Comment:{BASOPHILS {[id number]) 08/05/2012 12:5 3 PM EDT 08/05/2012 4:46 PM EDT Narrative Resulting Agency Comment [id number] us Abel Fierro MD LAB SAME DAY RESULT Final Resul t Performing Organization Address City/[facility] Co de Phone Number [facility] [address] [place] [address] * ALANINE AMINOTRANSFERASE (ALT), SERUM (08/05/2012 12:53 PM EDT) ALT (SGPT) 18 6 - 40 U/L [facility] Comment:{ALT {[id number]) 08/05/2012 12:5 3 PM EDT 08/05/2012 4:46 PM EDT Narrative Resulting Agency Comment [id number] us Abel Fierro MD LAB SAME DAY RESULT Final Resul t Performing Organization Address [facility] Co de Phone Number [facility] [address] [place] [address] * ASPARTATE AMINOTRANSFERASE (AST), SERUM (08/05/2012 12:53 PM EDT) AST (SGOT) 17 10 - 35 U/L [facility] Comment:{AST {[id number]) 08/05/2012 12:5 3 PM EDT 08/05/2012 4:46 PM EDT Narrative Resulting Agency Comment [id number] us Abel Fierro MD LAB SAME DAY RESULT Final Resul t Performing Organization Address City/[facility] Co de Phone Number [facility] [address] [place] [address] documented in this encounter Visit Diagnoses Diagnosis Rheumatoid arthritis(714.0) Rheumatoid arthritis documented in this encounter Care Teams Chicken Boner Relationship Specialty Start Date End Date Alberto Pacheco [address] [place] [address] PCP - General 07/19/08 05/24/13 Charly Saxena [facility] [place] [address] PCP - General Internal Medicine 05/25/13 07/16/17 Cheryl Calderon MD [facility] Medicine [address] [place] [address] PCP - General Internal Medicine 07/17/17 documented as of this encounter
--- OUTSIDE RECORDS SUMMARY | 2025-03-19 13:58 | XMS_ITS | Encounter Summary ---
Author Organization [facility] Address [address] [place] [address] Care Team Providers Care Hops Farmworker Name Role Phone Charly Saxena Primary Care Provider [phone] Cheryl Calderon MD Primary Care Provider [phone] Reason for Visit * Reason Comments F/u From OV Post injection f/u Encounter Details Date Type Department Care Team (Late st Contact Info) Description 10/24/2015 Telephone [facility] Rheumatology [address] [place] [address] Abel Fierro MD [address] [place] [address] F/u From OV (Post injection f/u ) [...] on filedocumented in this encounter Care Teams Hops Farmworker Relationship Specialty Start Date End Date Charly Saxena [facility] [address] [place] [address] PCP - General Internal Medicine 05/25/13 07/16/17 Cheryl Calderon MD [facility] Medicine [address] [place] [address] PCP - General Internal Medicine 07/17/17 documented as of this encounter
--- OUTSIDE RECORDS SUMMARY | 2025-03-19 13:58 | XMS_ITS | Encounter Summary ---
Author Organization [facility] Address [address] [place] [address] Care Team Providers Care Armature Connector Name Role Phone Charly Saxena Primary Care Provider [phone] Cheryl Calderon MD Primary Care Provider Encounter Details Date Type Department Care Team (Late st Contact Info) Description 04/18/2017 Orders Only [facility] Rheumatology [address] [place] [address] Abel Fierro MD [address] [place] [address] Social History Tobacco Use Types Packs/Day Years [...] 5:02 PM EST Narrative Resulting Agency Comment [id number] us Abel Fierro MD LABORATORY Final Result [facility] [address] [place] [address] * ERYTHROCYTE SEDIMENTATION RATE (ESR), JOSEERGREN (04/18/2017 12:15 PM EST) Sedimentation Rate [place] (ESR) 9 < OR = 30 mm/h [facility] 04/18/2017 12:1 5 PM EST 04/18/2017 5:02 PM EST Narrative Resulting Agency Comment [id number] us Abel Fierro MD LAB SAME DAY RESULT Final Resul t Performing Organization Address City/[facility]/ZIP Co de Phone Number [facility] [address] [place] [address] * CREATININE WITH GLOMERULAR FILTRATION RATE, ESTIMATED (EGFR) (04/18/2017 12:15 PM EST) Creatinine 0.88 0.50 - 0.99 mg/dL [facility] Comment: For patients >49 years of age, the reference limit for Creatinine is approximately 13% higher for people identified as -Lithuanian. GFR 70 > OR = 60 mL/min/1. [...] needs for GFR calculation. Resulting Agency Comment [id number] us Abel Fierro MD LAB SAME DAY RESULT Final Resul t Performing Organization Address [facility] Co de Phone Number [facility] [address] [place] [address] * ALANINE AMINOTRANSFERASE (ALT), SERUM (04/18/2017 12:15 PM EST) ALT (SGPT) 19 6 - 29 U/L [facility] 04/18/2017 12:1 5 PM EST 04/18/2017 5:02 PM EST Narrative Resulting Agency Comment [id number] us Abel Fierro MD LAB SAME DAY RESULT Final Resul t Performing Organization Address [facility] Co de Phone Number [facility] [address] [place] [address] * ASPARTATE AMINOTRANSFERASE (AST), SERUM (04/18/2017 12:15 PM EST) AST (SGOT) 19 10 - 35 U/L [facility] 04/18/2017 12:1 5 PM EST 04/18/2017 5:02 PM EST Narrative Resulting Agency Comment [id number] us Abel Fierro MD LAB SAME DAY RESULT Final Resul t Performing Organization Address [facility] de Phone Number [facility] [address] [place] [address] * CBC INCLUDES DIFFERENTIAL AND PLATELET COUNT [...] 5:02 PM EST Narrative Resulting Agency Comment [id number] us Abel Fierro MD LAB SAME DAY RESULT Final Resul t Performing Organization Address City/[facility] Co de Phone Number [facility] [address] [place] [address] documented in this encounter Visit Diagnoses Diagnosis Rheumatoid arthritis involving multiple sites with positive rheumatoid factor (HCC) documented in this encounter Care Teams Armature Connector Relationship Specialty Start Date End Date Charly Saxena [facility] [address] [place] [address] PCP - General Internal Medicine 05/25/13 07/16/17 Cheryl Calderon MD [facility] Adult Medicine [address] [place] [address] PCP - General Internal Medicine 07/17/17 documented as of this encounter
--- OUTSIDE RECORDS SUMMARY | 2025-03-19 13:58 | XMS_ITS | Encounter Summary ---
Author Organization [facility] Address [address] [place] [address] Care Team Providers Care Photograph Printer Name Role Phone Alberto Pacheco Primary Care Provider [phone] Charly Saxena Primary Care Provider [phone] Cheryl Calderon MD Primary Care Provider [phone] Encounter Details Date Type Department Care Team (Late st Contact Info) Description 01/23/2013 Orders Only [facility] Rheumatology [address] [place] [address] Abel Fierro MD [address] [place] [address] Social History Tobacco Use Types Packs/Day Years [...] yourself, including tying shoelaces and doing buttons? 1 01/23/2013 3:00 PM EDT Dolores Berrios 2. Get in and out of bed? 1 01/23/2013 3:00 PM EDT Dolores Velarde 3. Lift a full cup or glass to your mouth? 1 01/23/2013 3:00 PM EDT Keeley Velarde 4. Walk outdoors on flat ground? 1 01/24/20 13 3:00 PM EDT Dolores Velarde 5. Wash and dry your entire body? 1 013 3:00 PM EDT Dolores Velarde 6. Bend down to grape picker clot francsi from the floor? 1 01/23/2013 3:00 PM EDT Keeley Velarde 7. Turn regular faucets on a nd off? 1 01/23/2013 3:00 PM EDT Keeley Velarde 8. Get in and out of a car, bus, train or airplane? 1 01/23/2013 3:00 PM EDT Keeley Velarde 9. Walk two miles, if you wish? 3 3 3:00 PM EDT Dolores Velarde 10. Participate in recreatio nal activities and sports as you would like, if you wish? 3 01/23/2013 3:00 PM EDT Keeley Velarde FN TOTAL 14 01/23/2013 3:00 PM EDT Dolores Velarde FN CONVERSION 4.7 01/23/2013 3:00 PM EDT Dolores Singh * Health Assessment Pain Question Question Answer Date of Assessment Author How much pain have you had b ecause of your condition OVER THE PAST WEEK? 3.5 01/23/2013 3:00 PM EDT Keeley Velarde PN TOTAL 3.5 01/23/2013 3:00 PM EDT Dolores Velarde * Affect of Illness and Health Conditions Question Answer Date of Assessment Author PTGL TOTAL 3.5 01/23/2013 3:00 PM EDT Dolores Velarde Considering all the ways in which illness and health conditions may affect you at this time, please indicate below how you are doing? 3.5 01/23/2013 3:00 PM EDT Dolores Sousa * RAPID 3 Question Answer Date of Assessment Author RAPID 3 TOTAL SCORE 11.7 01/23/2013 3:00 PM ED T Dolores Velarde documented as of this encounter Plan of [...] Routine 01/23/2013 4:26 PM EDT Rheumatoid arthritis ([facility]) ASPARTATE AMINOTRANSFERASE (AST), SERUM Routine 01/23/2013 4:26 PM EDT Rheumatoid arthritis (HCC) CREATININE WITH GLOMERULAR FILTRATION RATE, ESTIMATED (EGFR) Routine 01/23/2013 4:26 PM EDT Rheumatoid arthritis (HCC) documented in this encounter Results * Due to [place] state law, this organization might not be sharing negative HIV tests. * ERYTHROCYTE SEDIMENTATION RATE (ESR), KUNAL (01/23/2013 4:26 PM EDT) Sedimentation Rate [place] (ESR) 4 < OR = 30 mm/h [facility] Comment:{SED RATE BY JONATHAN SYED {[id number]) 01/23/2013 4:26 PM EDT 01/23/2013 11:06 PM EDT Narrative Resulting Agency Comment [id number] us Abel Fierro MD LAB SAME DAY RESULT Final Resul t [facility] [address] [place] [address] * C-REACTIVE PROTEIN (CRP) - INFLAMMATION (01/23/2013 4:26 PM EDT) C reactive protein 0.49 <0.80 mg/dL [facility] Comment: {C-REACTIVE PROTEIN {[id number]) Please be advised that patients taking Carboxypenicillins may exhibit falsely decreased C-Reactive Protein levels due to an analytical interference in this assay. 01/23/2013 4:26 PM EDT 01/23/2013 11:06 PM EDT Narrative Resulting Agency Comment [id number] us Abel Fierro MD LABORATORY Final Result Performing Organization Address [facility]/ZIP Co de Phone Number [facility] [address] [place] [address] * CREATININE WITH GLOMERULAR FILTRATION RATE, ESTIMATED (EGFR) (01/23/2013 4:26 PM EDT) Creatinine 0.81 0.50 - 1.05 mg/dL [facility] Comment: {CREATININE {[id number]) For patients >49 years of age, the reference limit for Creatinine is approximately 13% higher for people identified as -Swazi. GFR 80 > OR = 60 mL/min/1. 73m2 [facility] Comment:{eGFR NON-AFR. AMERI CAN {[id number]) GFR () 93 > OR = 60 mL/min/1. 73m2 [facility] Comment:{eGFR AMERIC AN {[id number]) 01/23/2013 4:26 PM EDT 01/23/2013 11:06 PM [...] needs for GFR calculation. Resulting Agency Comment [id number] us Abel Fierro MD LAB SAME DAY RESULT Final Resul t [facility] [address] [place] [address] * (ABNORMAL) CBC INCLUDES DIFFERENTIAL AND PLATELET COUNT (01/23/2013 4:26 PM EDT) WBC 7.3 3.8 - 10.8 Thousand/ uL [facility] Comment:{WHITE BLOOD CELL CO UNT {[id number]) RBC 5.80(H) 3.80 - 5.10 Million/u L [facility] Comment:{RED BLOOD CELL COUN T {[id number]) Hemoglobin 15.0 11.7 - 15.5 g/dL [facility] Comment:{HEMOGLOBIN {[id number]) Hematocrit 47.0(H) 35.0 - 45.0 % [facility] Comment:{HEMATOCRIT {[id number]) MCV 81.1 80.0 - 100.0 fL [facility] Comment:{MCV {[id number]) MCH 25.9(L) 27.0 - 33.0 pg [facility] Comment:{MCH {[id number]) MCHC 31.9(L) 32.0 - 36.0 g/dL [facility] Comment:{MCHC {[id number]) RDW 16.0(H) 11.0 - 15.0 % [facility] Comment:{RDW {[id number]) PLT 327 140 - 400 Thousand/ uL [facility] Comment:{PLATELET COUNT {[id number]) MPV 7.8 7.5 - 11.5 fL [facility] Comment:{MPV {[id number]) Neutrophils # 3548 1500 - 7800 cells/uL [facility] Comment:{ABSOLUTE NEUTROPHIL S {[id number]) Lymphocytes # 2745 850 - 3900 cells/uL [facility] Comment:{ABSOLUTE LYMPHOCYTE S {[id number]) Monocytes # 767 200 - 950 cells/uL [facility] Comment:{ABSOLUTE MONOCYTES {[id number]) Eosinophils # 190 15 - 500 cells/uL [facility] Comment:{ABSOLUTE EOSINOPHIL S {[id number]) Basophils # 51 0 - 200 cells/uL [facility] Comment:{ABSOLUTE BASOPHILS {[id number]) Neutrophils % 48.6 % [facility] Comment:{NEUTROPHILS {[id number]) Lymphocytes % 37.6 % [facility] Comment:{LYMPHOCYTES {[id number]) Monocytes % 10.5 % [facility] Comment:{MONOCYTES {[id number]) Eosinophils % 2.6 % [facility] Comment:{EOSINOPHILS {[id number]) Basophils % 0.7 % [facility] Comment:{BASOPHILS {[id number]) 01/23/2013 4:26 PM EDT 01/23/2013 11:06 PM EDT Narrative Resulting Agency Comment [id number] us Abel Fierro MD LAB SAME DAY RESULT Final Resul t Performing Organization Address [facility] de Phone Number [facility] [address] [place] [address] * ASPARTATE AMINOTRANSFERASE (AST), SERUM (01/23/2013 4:26 PM EDT) AST (SGOT) 22 10 - 35 U/L [facility] Comment:{AST {[id number]) 01/23/2013 4:26 PM EDT 01/23/2013 11:06 PM EDT Narrative Resulting Agency Comment [id number] Abel Fierro MD LAB SAME DAY RESULT Final Resul t Performing Organization Address [facility] de Phone Number [facility] [address] [place] [address] * ALANINE AMINOTRANSFERASE (ALT), SERUM (01/23/2013 4:26 PM EDT) ALT (SGPT) 21 6 - 29 U/L [facility] Comment:{ALT {[id number]) 01/23/2013 4:26 PM EDT 01/23/2013 11:06 PM EDT Narrative Resulting Agency Comment [id number] Abel Fierro MD LAB SAME DAY RESULT Final Resul t [facility] [address] [place] [address] documented in this encounter Visit Diagnoses Diagnosis Rheumatoid arthritis(714.0) Rheumatoid arthritis documented in this encounter Care Teams Photograph Printer Relationship Specialty Start Date End Date Alberto Pacheco [address] [place] [address] PCP - General 07/19/08 05/24/13 Charly Saxena [facility] [place] [address] PCP - General Internal Medicine 05/25/13 07/16/17 Cheryl Calderon MD [facility] Adult Medicine [address] [place] [address] PCP - General Internal Medicine 07/17/17 documented as of this encounter
--- OUTSIDE RECORDS SUMMARY | 2025-03-19 13:59 | XMS_ITS | Encounter Summary ---
Author Organization [facility] Address [address] [place] [address] Care Team Providers Care Sat Tutor Name Role Phone Alberto Pacheco Primary Care Provider [phone] Charly Saxena Primary Care Provider [phone] Cheryl Calderon MD Primary Care Provider [phone] Encounter Details Date Type Department Care Team (Late st Contact Info) Description 05/29/2010 Orders Only [facility] Rheumatology [address] [place] [address] Abel Fierro MD [address] [place] [address] Social History Tobacco Use Types Packs/Day Years [...] RESULT Final Resul t Performing Organization Address City/[facility] Co de Phone Number [facility] [address] [place] [address] * C-REACTIVE PROTEIN (CRP), QUANTITATIVE, SERUM INFLAMMATION (05/29/2010) Pathologist [facility] C REACTIVE PROTEIN (CRP) 0.2 0 - 0.7 MG/DL [facility] 05/29/2010 05/29/2010 8:2 8 PM EST Abel Fierro MD LABORATORY Final Result Performing Organization Address [facility] Co de Phone Number [facility] [address] [place] [address] * CREATININE WITH GLOMERULAR FILTRATION RATE, ESTIMATED [...] RESULT Final Resul t [facility] [address] [place] [address] * (ABNORMAL) CBC 5 PART DIFF (05/29/2010) [...] RESULT Final Resul t Performing Organization Address City/[facility] Co de Phone Number [facility] [address] [place] [address] * ASPARTATE AMINOTRANSFERASE (AST), SERUM (05/29/2010) AST (SGOT) 21 10 - 35 U/L [facility] 05/29/2010 05/29/2010 8:2 8 PM EST us Abel Fierro MD LAB SAME DAY RESULT Final Resul t Performing Organization Address [facility] Co de Phone Number [facility] [address] [place] [address] * ALANINE AMINOTRANSFERASE (ALT), SERUM (05/29/2010) ALT (SGPT) 27 6 - 40 U/L [facility] 05/29/2010 05/29/2010 8:2 8 PM EST us Abel Fierro MD LAB SAME DAY RESULT Final Resul t Performing Organization Address [facility] de Phone Number [facility] [address] [place] [address] documented in this encounter Visit Diagnoses Diagnosis Rheumatoid arthritis(714.0) Rheumatoid arthritis documented in this encounter Care Teams Sat Tutor Relationship Specialty Start Date End Date Alberto Pacheco [address] [place] [address] PCP - General 07/19/08 05/24/13 Charly Saxena [facility] [place] [address] PCP - General Internal Medicine 05/25/13 07/16/17 Cheryl Calderon MD [facility] Medicine [address] [place] [address] PCP - General Internal Medicine 07/17/17 documented as of this encounter
--- OUTSIDE RECORDS SUMMARY | 2025-03-19 13:59 | XMS_ITS | Encounter Summary ---
Author Organization [facility] Address [address] [place] [address] Care Team Providers Care Belt Tender Name Role Phone Alberto Pacheco Primary Care Provider [phone] Charly Saxena Primary Care Provider [phone] Cheryl Calderon MD Primary Care Provider [phone] Encounter Details Date Type Department Care Team (Late st Contact Info) Description 04/14/2010 Orders Only [facility] Rheumatology [address] [place] [address] Deepti Estes GNP Social History Tobacco Use [...] precise needs for GFR calculation. Deepti Estes [facility] LAB SAME DAY RESULT Elana l Result Performing Organization Address [facility] de Phone Number [facility] [address] [place] [address] * ALANINE AMINOTRANSFERASE (ALT), SERUM (04/14/2010) ALT (SGPT) 28 6 - 40 U/L [facility] 04/14/2010 04/14/2010 11: 35 PM EST Deepti Estes [facility] LAB SAME DAY RESULT Elana l Result Performing Organization Address [facility] Co de Phone Number [facility] [address] [place] [address] * ASPARTATE AMINOTRANSFERASE (AST), SERUM (04/14/2010) AST (SGOT) 24 10 - 35 U/L [facility] 04/14/2010 04/14/2010 11: 35 PM EST Depeti Estes [facility] LAB SAME DAY RESULT Elana l Result [facility] [address] [place] [address] * (ABNORMAL) CBC 5 PART DIFF (04/14/2010) [...] 04/14/2010 11: 35 PM EST Deepti Estes [facility] LAB SAME DAY RESULT Elana l Result [facility] [address] [place] [address] documented in this encounter Visit Diagnoses Diagnosis Rheumatoid arthritis(714.0) Rheumatoid arthritis documented in this encounter Care Teams Belt Tender Relationship Specialty Start Date End Date Alberto Pacheco [address] [place] [address] PCP - General 07/19/08 05/24/13 Charly Saxena [facility] [place] [address] PCP - General Internal Medicine 05/25/13 07/16/17 Cheryl Calderon MD [facility] Adult Medicine [address] [place] [address] PCP - General Internal Medicine 07/17/17 documented as of this encounter
--- OUTSIDE RECORDS SUMMARY | 2025-03-19 13:59 | XMS_ITS | Encounter Summary ---
Author Organization [facility] Address [address] [place] [address] Care Team Providers Care Residential Therapist Name Role Phone Alberto Pacheco Primary Care Provider [phone] Charly Saxena Primary Care Provider [phone] Cheryl Calderon MD Primary Care Provider [phone] Reason for Visit * Reason Comments E-prescribing Refill Request Encounter Details Date Type Department Care Team (Late st Contact Info) Description 08/21/[address] [facility] Rheumatology [address] [place] [address] Abel Fierro MD [address] [place] [address] E-prescribing Refill Request Social History Tobacco Use [...] on filedocumented in this encounter Care Teams Residential Therapist Relationship Specialty Start Date End Date Alberto Pacheco [address] [place] [address] PCP - General 07/19/08 05/24/13 Charly Saxena [facility] [address] [place] [address] PCP - General Internal Medicine 05/25/13 07/16/17 Cheryl Calderon MD [facility] Medicine [address] [place] [address] PCP - General Internal Medicine 07/17/17 documented as of this encounter
--- OUTSIDE RECORDS SUMMARY | 2025-03-19 13:59 | XMS_ITS | Encounter Summary ---
Author Organization [facility] Address [address] [place] [address] Care Team Providers Care Health Spa Manager Name Role Phone Alberto Pacheco Primary Care Provider [phone] Charly Saxena Primary Care Provider [phone] Cheryl Calderon MD Primary Care Provider [phone] Encounter Details Date Type Department Care Team (Late st Contact Info) Description 02/20/2011 Orders Only [facility] Rheumatology [address] [place] [address] Abel Fierro MD [address] [place] [address] Social History Tobacco Use Types Packs/Day Years [...] 0.60 - 1.10 mg/dL [facility] Comment:{CREATININE {[id number]) GFR 82 > OR = 60 mL/min/1.7 3m2 [facility] Comment:{eGFR NON-AFR. AMERI CAN {[id number]) GFR () 96 > OR = 60 mL/min/1.7 3m2 [facility] Comment:{eGFR AMERIC AN {[id number]) 02/20/2011 11:2 4 AM EDT 02/20/2011 7:08 [...] needs for GFR calculation. Resulting Agency Comment [id number] us Abel Fierro MD LAB SAME DAY RESULT Final Resul t [facility] [address] [place] [address] * (ABNORMAL) CBC INCLUDES DIFFERENTIAL AND PLATELET COUNT (02/20/2011 11:24 AM EDT) WBC 7.8 3.8 - 10.8 Thousand/ uL [facility] Comment:{WHITE BLOOD CELL CO UNT {[id number]) RBC 5.43(H) 3.80 - 5.10 Million/u L [facility] Comment:{RED BLOOD CELL COUN T {[id number]) Hemoglobin 15.9(H) 11.7 - 15.5 g/dL [facility] Comment:{HEMOGLOBIN {[id number]) Hematocrit 48.3(H) 35.0 - 45.0 % [facility] Comment:{HEMATOCRIT {[id number]) MCV 89.0 80.0 - 100.0 fL [facility] Comment:{MCV {[id number]) MCH 29.4 27.0 - 33.0 pg [facility] Comment:{MCH {[id number]) MCHC 33.0 32.0 - 36.0 g/dL [facility] Comment:{MCHC {[id number]) RDW 14.3 11.0 - 15.0 % [facility] Comment:{RDW {[id number]) PLT 274 140 - 400 Thousand/ uL [facility] Comment:{PLATELET COUNT {[id number]) MPV 8.3 7.5 - 11.5 fL [facility] Comment:{MPV {[id number]) Neutrophils # 4930 1500 - 7800 cells/uL [facility] Comment:{ABSOLUTE NEUTROPHIL S {[id number]) Lymphocytes # 1919 850 - 3900 cells/uL [facility] Comment:{ABSOLUTE LYMPHOCYTE S {[id number]) Monocytes # 780 200 - 950 cells/uL [facility] Comment:{ABSOLUTE MONOCYTES {[id number]) Eosinophils # 125 15 - 500 cells/uL [facility] Comment:{ABSOLUTE EOSINOPHIL S {[id number]) Basophils # 47 0 - 200 cells/uL [facility] Comment:{ABSOLUTE BASOPHILS {[id number]) Neutrophils % 63.2 % [facility] Comment:{NEUTROPHILS {[id number]) Lymphocytes % 24.6 % [facility] Comment:{LYMPHOCYTES {[id number]) Monocytes % 10.0 % [facility] Comment:{MONOCYTES {[id number]) Eosinophils % 1.6 % [facility] Comment:{EOSINOPHILS {[id number]) Basophils % 0.6 % [facility] Comment:{BASOPHILS {[id number]) 02/20/2011 11:2 4 AM EDT 02/20/2011 7:08 PM EDT Narrative Resulting Agency Comment [id number] us Abel Fierro MD LAB SAME DAY RESULT Final Resul t Performing Organization Address City/[facility] Co de Phone Number [facility] [address] [place] [address] * ASPARTATE AMINOTRANSFERASE (AST), SERUM (02/20/2011 11:24 AM EDT) AST (SGOT) 23 10 - 35 U/L [facility] Comment:{AST {[id number]) 02/20/2011 11:2 4 AM EDT 02/20/2011 7:08 PM EDT Narrative Resulting Agency Comment [id number] us Abel Fierro MD LAB SAME DAY RESULT Final Resul t Performing Organization Address [facility] Co de Phone Number [facility] [address] [place] [address] * ALANINE AMINOTRANSFERASE (ALT), SERUM (02/20/2011 11:24 AM EDT) ALT (SGPT) 25 6 - 40 U/L [facility] Comment:{ALT {[id number]) 02/20/2011 11:2 4 AM EDT 02/20/2011 7:08 PM EDT Narrative Resulting Agency Comment [id number] us Abel Fierro MD LAB SAME DAY RESULT Final Resul t Performing Organization Address City/[facility] Co de Phone Number [facility] [address] [place] [address] documented in this encounter Visit Diagnoses Diagnosis Rheumatoid arthritis(714.0) Rheumatoid arthritis documented in this encounter Care Teams Health Spa Manager Relationship Specialty Start Date End Date Alberto Pacheco [address] [place] [address] PCP - General 07/19/08 05/24/13 Charly Saxena [facility] [address] [place] [address] PCP - General Internal Medicine 05/25/13 07/16/17 Cheryl Calderon MD [facility] Medicine [address] [place] [address] PCP - General Internal Medicine 07/17/17 documented as of this encounter
--- OUTSIDE RECORDS SUMMARY | 2025-03-19 13:59 | XMS_ITS | Encounter Summary ---
Author Organization [facility] Address [address] [place] [address] Care Team Providers Care Stone Paver Name Role Phone Alberto Pacheco Primary Care Provider [phone] Charly Saxena Primary Care Provider [phone] Cheryl Calderon MD Primary Care Provider [phone] Reason for Visit * Reason Comments E-prescribing Refill Request Encounter Details Date Type Department Care Team ([facility] st Contact Info) Description 10/20/2011 Refill [facility] Rheumatology [address] [place] [address] Abel Fierro MD [address] [place] [address] E-prescribing Refill Request Social History Tobacco Use [...] on filedocumented in this encounter Care Teams Stone Paver Relationship Specialty Start Date End Date Alberto Pacheco [address] [place] [address] PCP - General 07/19/08 05/24/13 Charly Saxena [facility] [address] [place] [address] PCP - General Internal Medicine 05/25/13 07/16/17 Cheryl Calderon MD [facility] Medicine [address] [place] [address] PCP - General Internal Medicine 07/17/17 documented as of this encounter
--- OUTSIDE RECORDS SUMMARY | 2025-03-19 13:59 | XMS_ITS | Encounter Summary ---
Author Organization [facility] Address [address] [place] [address] Care Team Providers Care Dimension Mill Worker Name Role Phone Alberto Pacheco Primary Care Provider [phone] Charly Saxena Primary Care Provider [phone] Cheryl Calderon MD Primary Care Provider [phone] Encounter Details Date Type Department Care Team (Late st Contact Info) Description 08/15/2011 Orders Only [facility] Rheumatology [address] [place] [address] Abel Fierro MD [address] [place] [address] Social History Tobacco Use Types Packs/Day Years [...] this encounter Procedures * Due to [place] [employer] law, this organization might not be sharing negative HIV tests. Procedure Name Priority Date/Time Associated Diagnosis Comments C-REACTIVE PROTEIN (CRP) - INFLAMMATION Routine 08/15/2011 10:22 AM EDT Rheumatoid arthritis (HCC) ERYTHROCYTE SEDIMENTATION RATE (ESR) Routine 08/15/2011 10:22 AM EDT Rheumatoid arthritis ([facility]) CBC INCLUDES DIFFERENTIAL AND PLATELET COUNT Routine 08/15/2011 10:22 AM EDT Rheumatoid arthritis ([facility]) ALANINE AMINOTRANSFERASE (ALT), SERUM Routine 08/15/2011 10:22 AM EDT Rheumatoid arthritis ([facility]) ASPARTATE AMINOTRANSFERASE (AST), SERUM Routine 08/15/2011 10:22 AM EDT Rheumatoid arthritis ([facility]) CREATININE WITH GLOMERULAR FILTRATION RATE, ESTIMATED (EGFR) Routine 08/15/2011 10:22 AM EDT Rheumatoid arthritis ([facility]) documented in this encounter Results * Due to [place] [employer] law, this organization might not be sharing negative HIV tests. * ERYTHROCYTE SEDIMENTATION RATE (ESR)KUNAL (08/15/2011 10:22 AM EDT) Sedimentation Rate Rockegren (ESR) 6 < OR = 30 mm/h [facility] Comment:{SED RATE BY JONATHAN SYED {[id number]) 08/15/2011 10:2 2 AM EDT 08/15/2011 5:01 PM EDT Narrative Resulting Agency Comment [id number] us Abel Fierro MD LAB SAME DAY RESULT Final Resul t Performing Organization Address [facility] Co de Phone Number [facility] [address] [place] [address] * C-REACTIVE PROTEIN (CRP) - INFLAMMATION (08/15/2011 10:22 AM EDT) C reactive protein 0.15 <0.80 mg/dL [facility] Comment: {C-REACTIVE PROTEIN {[id number]) Please be advised that patients taking Carboxypenicillins may exhibit falsely decreased C-Reactive Protein levels due to an analytical interference in this assay. 08/15/2011 10:2 2 AM EDT 08/15/2011 5:01 PM EDT Narrative Resulting Agency Comment [id number] us Abel Fierro MD LABORATORY Final Result Performing Organization Address [facility] Co de Phone Number [facility] [address] [place] [address] * CREATININE WITH GLOMERULAR FILTRATION RATE, ESTIMATED (EGFR) (08/15/2011 10:22 AM EDT) Creatinine 0.87 0.50 - 1.05 mg/dL [facility] Comment: {CREATININE {[id number]) For patients >49 years of age, the reference limit for Creatinine is approximately 13% higher for people identified as -Mauritanian. GFR 74 > OR = 60 mL/min/1. 73m2 [facility] Comment:{eGFR NON-AFR. AMERI CAN {[id number]) GFR () 86 > OR = 60 mL/min/1. 73m2 [facility] Comment:{eGFR AMERIC AN {[id number]) 08/15/2011 10:2 2 AM EDT 08/15/2011 5:01 [...] needs for GFR calculation. Resulting Agency Comment [id number] us Abel Fierro MD LAB SAME DAY RESULT Final Resul t [facility] [address] [place] [address] * (ABNORMAL) CBC INCLUDES DIFFERENTIAL AND PLATELET COUNT (08/15/2011 10:22 AM EDT) WBC 7.5 3.8 - 10.8 Thousand/ uL [facility] Comment:{WHITE BLOOD CELL CO UNT {[id number]) RBC 5.26(H) 3.80 - 5.10 Million/u L [facility] Comment:{RED BLOOD CELL COUN T {[id number]) Hemoglobin 14.6 11.7 - 15.5 g/dL [facility] Comment:{HEMOGLOBIN {[id number]) Hematocrit 44.5 35.0 - 45.0 % [facility] Comment:{HEMATOCRIT {[id number]) MCV 84.7 80.0 - 100.0 fL [facility] Comment:{MCV {[id number]) MCH 27.8 27.0 - 33.0 pg [facility] Comment:{MCH {[id number]) MCHC 32.8 32.0 - 36.0 g/dL [facility] Comment:{MCHC {[id number]) RDW 14.8 11.0 - 15.0 % [facility] Comment:{RDW {[id number]) PLT 238 140 - 400 Thousand/ uL [facility] Comment:{PLATELET COUNT {[id number]) MPV 8.4 7.5 - 11.5 fL [facility] Comment:{MPV {[id number]) Neutrophils # 4643 1500 - 7800 cells/uL [facility] Comment:{ABSOLUTE NEUTROPHIL S {[id number]) Lymphocytes # 2265 850 - 3900 cells/uL [facility] Comment:{ABSOLUTE LYMPHOCYTE S {[id number]) Monocytes # 360 200 - 950 cells/uL [facility] Comment:{ABSOLUTE MONOCYTES {[id number]) Eosinophils # 203 15 - 500 cells/uL [facility] Comment:{ABSOLUTE EOSINOPHIL S {[id number]) Basophils # 30 0 - 200 cells/uL [facility] Comment:{ABSOLUTE BASOPHILS {[id number]) Neutrophils % 61.9 % [facility] Comment:{NEUTROPHILS {[id number]) Lymphocytes % 30.2 % [facility] Comment:{LYMPHOCYTES {[id number]) Monocytes % 4.8 % [facility] Comment:{MONOCYTES {[id number]) Eosinophils % 2.7 % [facility] Comment:{EOSINOPHILS {[id number]) Basophils % 0.4 % [facility] Comment:{BASOPHILS {[id number]) 08/15/2011 10:2 2 AM EDT 08/15/2011 5:01 PM EDT Narrative Resulting Agency Comment [id number] us Abel Fierro MD LAB SAME DAY RESULT Final Resul t Performing Organization Address City/[facility] Co de Phone Number [facility] [address] [place] [address] * ALANINE AMINOTRANSFERASE (ALT), SERUM (08/15/2011 10:22 AM EDT) ALT (SGPT) 25 6 - 40 U/L [facility] Comment:{ALT {[id number]) 08/15/2011 10:2 2 AM EDT 08/15/2011 5:01 PM EDT Narrative Resulting Agency Comment [id number] us Abel Fierro MD LAB SAME DAY RESULT Final Resul t Performing Organization Address City/[facility]/ZIP Co de Phone Number [facility] [address] [place] [address] * ASPARTATE AMINOTRANSFERASE (AST), SERUM (08/15/2011 10:22 AM EDT) AST (SGOT) 25 10 - 35 U/L [facility] Comment:{AST {[id number]) 08/15/2011 10:2 2 AM EDT 08/15/2011 5:01 PM EDT Narrative Resulting Agency Comment [id number] us Abel Fierro MD LAB SAME DAY RESULT Final Resul t [facility] [address] [place] [address] documented in this encounter Visit Diagnoses Diagnosis Rheumatoid arthritis(714.0) Rheumatoid arthritis documented in this encounter Care Teams Dimension Mill Worker Relationship Specialty Start Date End Date Alberto Pacheco [address] [place] [address] PCP - General 07/19/08 05/24/13 Charly Saxena [facility] [address] [place] [address] PCP - General Internal Medicine 05/25/13 07/16/17 Cheryl Calderon MD [facility] Medicine [address] [place] [address] PCP - General Internal Medicine 07/17/17 documented as of this encounter
--- OUTSIDE RECORDS SUMMARY | 2025-03-19 13:59 | XMS_ITS | Encounter Summary ---
Author Organization [facility] Address [address] [place] [address] Care Team Providers Care Director Of Online Merchandising Name Role Phone Alberto Pacheco Primary Care Provider [phone] Charly Saxena Primary Care Provider [phone] Cheryl Calderon MD Primary Care Provider [phone] Encounter Details Date Type Department Care Team (Late st Contact Info) Description 01/18/2009 Orders Only [facility] Rheumatology [address] [place] [address] Abel Fierro MD [address] [place] [address] Social History Tobacco Use Types Packs/Day Years [...] RATE, ESTIMATED (EGFR) Routine 01/18/2009 Rheumatoid Arthritis ([facility]) Encounter for Long-Term (Current) Use of Other Medications SED RATE ESR Routine 01/18/2009 Rheumatoid Arthritis ([facility]) Encounter for Long-Term (Current) Use of Other Medications CBC 5 PART DIFF Routine 01/18/2009 Rheumatoid Arthritis ([facility]) Encounter for Long-Term (Current) Use of Other Medications ALANINE AMINOTRANSFERASE (ALT), SERUM Routine 01/18/2009 Rheumatoid Arthritis ([facility]) Encounter for Long-Term (Current) Use of Other Medications ASPARTATE AMINOTRANSFERASE (AST), SERUM Routine 01/18/2009 Rheumatoid Arthritis ([facility]) Encounter for Long-Term (Current) Use of Other Medications ALBUMIN Routine 01/18/2009 Rheumatoid Arthritis ([facility]) Encounter for Long-Term (Current) Use of Other [...] Organization Address City/[facility] Co de Phone Number [facility] [address] [place] [address] * SED RATE ESR (01/18/2009) ESR (ERYTHROCYTE SEDIMENTATION RATE) 5 0 - 30 MM/HR [facility] 01/18/2009 01/18/2009 8:1 8 PM EDT us Abel Fierro MD LAB SAME DAY RESULT Final Resul t Performing Organization Address City/[facility]/ZIP Co de Phone Number [facility] [address] [place] [address] * ALBUMIN (01/18/2009) ALBUMIN 3.8 3.5 - 4.9 G/DL [facility] 01/18/2009 01/18/2009 8:1 8 PM EDT us Abel Fierro MD LAB SAME DAY RESULT Final Resul t Performing Organization Address [facility] de Phone Number [facility] [address] [place] [address] * CREATININE WITH GLOMERULAR FILTRATION RATE, ESTIMATED [...] RESULT Final Resul t Performing Organization Address [facility] de Phone Number [facility] [address] [place] [address] * ALANINE AMINOTRANSFERASE (ALT), SERUM (01/18/2009) ALT (SGPT) 20 6 - 40 U/L [facility] 01/18/2009 01/18/2009 8:1 8 PM EDT us Abel Fierro MD LAB SAME DAY RESULT Final Resul t Performing Organization Address [facility] Co de Phone Number [facility] [address] [place] [address] * ASPARTATE AMINOTRANSFERASE (AST), SERUM (01/18/2009) AST (SGOT) 19 10 - 35 U/L [facility] 01/18/2009 01/18/2009 8:1 8 PM EDT us Abel Fierro MD LAB SAME DAY RESULT Final Resul t [facility] [address] [place] [address] * (ABNORMAL) CBC 5 PART DIFF (01/18/2009) [...] RESULT Final Resul t [facility] [address] [place] [address] documented in this encounter Visit Diagnoses Diagnosis Rheumatoid arthritis(714.0) Rheumatoid arthritis Encounter for long-term (current) use of other medications documented in this encounter Care Teams Director Of Online Merchandising Relationship Specialty Start Date End Date Alberto Pacheco [address] [place] [address] PCP - General 07/19/08 05/24/13 Charly Saxena [facility] [place] [address] PCP - General Internal Medicine 05/25/13 07/16/17 Cheryl Calderon MD [facility] Adult Medicine [address] [place] [address] PCP - General Internal Medicine 07/17/17 documented as of this encounter
--- OUTSIDE RECORDS SUMMARY | 2025-03-19 13:59 | XMS_ITS | Encounter Summary ---
Author Organization [facility] Address [address] [place] [address] Care Team Providers Care Incident Response Specialist Name Role Phone Alberto Pacheco Primary Care Provider [phone] Charly Saxena Primary Care Provider [phone] Cheryl Calderon MD Primary Care Provider [phone] Encounter Details Date Type Department Care Team (Late st Contact Info) Description 10/18/2011 Orders Only [facility] Rheumatology [address] [place] [address] Abel Fierro MD [address] [place] [address] Social History Tobacco Use Types Packs/Day Years [...] including tying shoelaces and doing buttons? 1 10/18/2011 4:00 PM EDT Dolores Berrios 2. Get in and out of bed? 0 10/18/2011 4:00 PM EDT Dolores Velarde 3. Lift a full cup or glass to your mouth? 1 10/18/2011 4:00 PM EDT Keeley Velarde 4. Walk outdoors on flat ground? 2 10/18/19 12 4:00 PM EDT Dolores Velarde 5. Wash and dry your entire body? 2 012 4:00 PM EDT Dolores Velarde 6. Bend down to medicinal plant picker clot francis from the floor? 2 10/18/2011 4:00 PM EDT Keeley Velarde 7. Turn regular faucets on a nd off? 1 10/18/2011 4:00 PM EDT Keeley Velarde 8. Get in and out of a car, bus, train or airplane? 2 10/18/2011 4:00 PM EDT Keeley Velarde 9. Walk two miles, if you wish? 3 2 4:00 PM EDT Dolores Velarde 10. Participate in recreatio nal activities and sports as you would like, if you wish? 3 10/18/2011 4:00 PM EDT Keeley Velarde FN TOTAL 17 10/18/2011 4:00 PM EDT Dolores Velarde FN CONVERSION 5.7 10/18/2011 4:00 PM EDT Dolores Singh * Health Assessment Pain Question Question Answer Date of Assessment Author How much pain have you had b ecause of your condition OVER THE PAST WEEK? 3.0 10/18/2011 4:00 PM EDT Keeley Velarde PN TOTAL 3 10/18/2011 4:00 PM EDT Dolores Velarde * Affect of Illness and Health Conditions Question Answer Date of Assessment Author PTGL TOTAL 8 10/18/2011 4:00 PM EDT Dolores Velarde Considering all the ways in which illness and health conditions may affect you at this time, please indicate below how you are doing? 8.0 10/18/2011 4:00 PM EDT Dolores Sousa * RAPID 3 Question Answer Date of Assessment Author RAPID 3 TOTAL SCORE 16.7 10/18/2011 4:00 PM ED T Dolores Velarde documented as of this encounter Plan of Treatment Not on file documented as of this encounter Procedures * Due to [place] [employer] law, this organization might not be sharing [...] encounter Results * Due to [place] [employer] law, this organization might not be sharing negative HIV tests. * CREATININE WITH GLOMERULAR FILTRATION RATE, ESTIMATED (EGFR) (10/18/2011 4:28 PM EDT) Creatinine 0.82 0.50 - 1.05 mg/dL [facility] Comment: {CREATININE {[id number]) For patients >49 years of age, the reference limit for Creatinine is approximately 13% higher for people identified as -Kitt[place]. GFR 80 > OR = 60 mL/min/1. 73m2 [facility] Comment:{eGFR NON-AFR. AMERI CAN {[id number]) GFR () 93 > OR = 60 mL/min/1. 73m2 [facility] Comment:{eGFR AMERIC AN {[id number]) 10/18/2011 4:28 PM EDT 10/18/2011 8:48 PM [...] needs for GFR calculation. Resulting Agency Comment [id number] Abel Fierro MD LAB SAME DAY RESULT Final Resul t Performing Organization Address [facility] de Phone Number [facility] [address] [place] [address] * ALANINE AMINOTRANSFERASE (ALT), SERUM (10/18/2011 4:28 PM EDT) ALT (SGPT) 24 6 - 40 U/L [facility] Comment:{ALT {[id number]) 10/18/2011 4:28 PM EDT 10/18/2011 8:48 PM EDT Narrative Resulting Agency Comment [id number] Abel Fierro MD LAB SAME DAY RESULT Final Resul t Performing Organization Address [facility] de Phone Number [facility] [address] [place] [address] * ASPARTATE AMINOTRANSFERASE (AST), SERUM (10/18/2011 4:28 PM EDT) AST (SGOT) 27 10 - 35 U/L [facility] Comment:{AST {[id number]) 10/18/2011 4:28 PM EDT 10/18/2011 8:48 PM EDT Narrative Resulting Agency Comment [id number] Abel Fierro MD LAB SAME DAY RESULT Final Resul t Performing Organization Address [facility] de Phone Number [facility] [address] [place] [address] * (ABNORMAL) CBC INCLUDES DIFFERENTIAL AND PLATELET COUNT (10/18/2011 4:28 PM EDT) WBC 7.2 3.8 - 10.8 Thousand/ uL [facility] Comment:{WHITE BLOOD CELL CO UNT {[id number]) RBC 5.34(H) 3.80 - 5.10 Million/u L [facility] Comment:{RED BLOOD CELL COUN T {[id number]) Hemoglobin 15.0 11.7 - 15.5 g/dL [facility] Comment:{HEMOGLOBIN {[id number]) Hematocrit 46.3(H) 35.0 - 45.0 % [facility] Comment:{HEMATOCRIT {[id number]) MCV 86.6 80.0 - 100.0 fL [facility] Comment:{MCV {[id number]) MCH 28.1 27.0 - 33.0 pg [facility] Comment:{MCH {[id number]) MCHC 32.5 32.0 - 36.0 g/dL [facility] Comment:{MCHC {[id number]) RDW 14.4 11.0 - 15.0 % [facility] Comment:{RDW {[id number]) PLT 254 140 - 400 Thousand/ uL [facility] Comment:{PLATELET COUNT {[id number]) MPV 8.4 7.5 - 11.5 fL [facility] Comment:{MPV {[id number]) Neutrophils # 3226 1500 - 7800 cells/uL [facility] Comment:{ABSOLUTE NEUTROPHIL S {[id number]) Lymphocytes # 2988 850 - 3900 cells/uL [facility] Comment:{ABSOLUTE LYMPHOCYTE S {[id number]) Monocytes # 893 200 - 950 cells/uL [facility] Comment:{ABSOLUTE MONOCYTES {[id number]) Eosinophils # 65 15 - 500 cells/uL [facility] Comment:{ABSOLUTE EOSINOPHIL S {[id number]) Basophils # 29 0 - 200 cells/uL [facility] Comment:{ABSOLUTE BASOPHILS {[id number]) Neutrophils % 44.8 % [facility] Comment:{NEUTROPHILS {[id number]) Lymphocytes % 41.5 % [facility] Comment:{LYMPHOCYTES {[id number]) Monocytes % 12.4 % [facility] Comment:{MONOCYTES {[id number]) Eosinophils % 0.9 % [facility] Comment:{EOSINOPHILS {[id number]) Basophils % 0.4 % [facility] Comment:{BASOPHILS {[id number]) 10/18/2011 4:28 PM EDT 10/18/2011 8:48 PM EDT Narrative Resulting Agency Comment [id number] us Abel Fierro MD LAB SAME DAY RESULT Final Resul t [facility] [address] [place] [address] documented in this encounter Visit Diagnoses Diagnosis Rheumatoid arthritis(714.0) Rheumatoid arthritis documented in this encounter Care Teams Incident Response Specialist Relationship Specialty Start Date End Date Alberto Pacheco [address] [place] [address] PCP - General 07/19/08 05/24/13 Charly Saxena [facility] [address] [place] [address] PCP - General Internal Medicine 05/25/13 07/16/17 Cheryl Calderon MD [facility] Adult Medicine [address] [place] [address] PCP - General Internal Medicine 07/17/17 documented as of this encounter
--- OUTSIDE RECORDS SUMMARY | 2025-03-19 13:59 | XMS_ITS | Encounter Summary ---
Author Organization [facility] Address [address] [place] [address] Care Team Providers Care Career Technical Counselor Name Role Phone Alberto Pacheco Primary Care Provider [phone] Unknown Pcp, Non Rmg Primary Care Provider Unava ilCharly Antoine Primary Care Provider Charly Saxena Primary Care Provider Cheryl Calderon MD Primary Care Provider [phone] Encounter Details Date Type Department Care Team (Late st Contact Info) Description 11/15/2006 Orders Only [facility] Rheumatology [address] [place] [address] Abel Fierro MD [address] [place] [address] Social History Tobacco Use Types Packs/Day Years [...] arthritis documented in this encounter Care Teams Career Technical Counselor Relationship Specialty Start Date End Date Alberto Pacheco [address] [place] [address] PCP - General 07/19/08 05/24/13 Unknown Pcp, Non Rmg PCP - General 06/30/08 07/18/08 Charly Saxena [facility] [address] [place] [address] PCP - General 01/18/06 06/29/08 Charly Saxena [facility] [address] [place] [address] PCP - General Internal Medicine 05/25/13 07/16/17 Cheryl Calderon MD [facility] Adult Medicine [address] [place] [address] PCP - General Internal Medicine 07/17/17 documented as of this encounter
--- OUTSIDE RECORDS SUMMARY | 2025-03-19 13:59 | XMS_ITS | Encounter Summary ---
Author Organization [facility] Address [address] [place] [address] Care Team Providers Care Pacu Rn Name Role Phone Charly Saxena Primary Care Provider [phone] Cheryl Calderon MD Primary Care Provider [phone] Encounter Details Date Type Department Care Team (Late st Contact Info) Description 02/14/2017 Orders Only [facility] Rheumatology [address] [place] [address] Abel Fierro MD [address] [place] [address] Social History Tobacco Use Types Packs/Day Years [...] 9:13 PM EDT Narrative Resulting Agency Comment [id number] us Abel Fierro MD LAB SAME DAY RESULT Final Resul t Performing Organization Address [facility] Co de Phone Number [facility] [address] [place] [address] * ASPARTATE AMINOTRANSFERASE (AST), SERUM (02/14/2017 2:31 PM EDT) AST (SGOT) 27 10 - 35 U/L [facility] 02/14/2017 2:31 PM EDT 02/14/2017 9:13 PM EDT Narrative Resulting Agency Comment [id number] Abel Fierro MD LAB SAME DAY RESULT Final Resul t Performing Organization Address [facility] de Phone Number [facility] [address] [place] [address] * CREATININE WITH GLOMERULAR FILTRATION RATE, ESTIMATED (EGFR) (02/14/2017 2:31 PM EDT) Creatinine 0.80 0.50 - 0.99 mg/dL [facility] Comment: For patients >49 years of age, the reference limit for Creatinine is approximately 13% higher for people identified as -Citizen Of [place]. GFR 79 > OR = 60 mL/min/1. [...] needs for GFR calculation. Resulting Agency Comment [id number] us Abel Fierro MD LAB SAME DAY RESULT Final Resul t [facility] [address] [place] [address] * (ABNORMAL) CBC INCLUDES DIFFERENTIAL AND PLATELET [...] 9:13 PM EDT Narrative Resulting Agency Comment [id number] us Abel Fierro MD LAB SAME DAY RESULT Final Resul t [facility] [address] [place] [address] documented in this encounter Visit Diagnoses Diagnosis Rheumatoid arthritis involving multiple sites with positive rheumatoid factor (HCC) documented in this encounter Care Teams Pacu Rn Relationship Specialty Start Date End Date Charly Saxena [facility] [address] [place] [address] PCP - General Internal Medicine 05/25/13 07/16/17 Cheryl Calderon MD [facility] Adult Medicine [address] [place] [address] PCP - General Internal Medicine 07/17/17 documented as of this encounter
--- OUTSIDE RECORDS SUMMARY | 2025-03-19 13:59 | XMS_ITS | Encounter Summary ---
Author Organization [facility] Address [address] [place] [address] Care Team Providers Care Restaurant Host/Hostess Name Role Phone Alberto Pacheco Primary Care Provider [phone] Charly Saxena Primary Care Provider [phone] Cheryl Calderon MD Primary Care Provider [phone] Encounter Details Date Type Department Care Team (Late st Contact Info) Description 03/31/2009 Orders Only [facility] Rheumatology [address] [place] [address] Abel Fierro MD [address] [place] [address] Social History Tobacco Use Types Packs/Day Years [...] Co de Phone Number [facility] [address] [place] [address] * (ABNORMAL) CBC 5 PART DIFF (03/31/2009) [...] RESULT Final Resul t Performing Organization Address City/[facility] Co de Phone Number [facility] [address] [place] [address] * ASPARTATE AMINOTRANSFERASE (AST), SERUM (03/31/2009) AST (SGOT) 20 10 - 35 U/L [facility] 03/31/2009 04/01/2009 12: 36 AM EST Narrative [facility] - 04/01/2009 5:29 AM EST Report Comments: RBC'S PRESENT, CHEMISTRY RESULT(S) MAY BE AFFECTED us Abel Fierro MD LAB SAME DAY RESULT Final Resul t Performing Organization Address City/[facility] Co de Phone Number [facility] [address] [place] [address] * ALANINE AMINOTRANSFERASE (ALT), SERUM (03/31/2009) ALT (SGPT) 21 6 - 40 U/L [facility] 03/31/2009 04/01/2009 12: 36 AM EST Narrative [facility] - 04/01/2009 5:29 AM EST Report Comments: RBC'S PRESENT, CHEMISTRY RESULT(S) MAY BE AFFECTED us Abel Fierro MD LAB SAME DAY RESULT Final Resul t [facility] [address] [place] [address] documented in this encounter Visit Diagnoses Diagnosis Rheumatoid arthritis(714.0) Rheumatoid arthritis documented in this encounter Care Teams Restaurant Host/Hostess Relationship Specialty Start Date End Date Alberto Pacheco [address] [place] [address] PCP - General 07/19/08 05/24/13 Charly Saxena [facility] [address] [place] [address] PCP - General Internal Medicine 05/25/13 07/16/17 Cheryl Calderon MD [facility] Medicine [address] [place] [address] PCP - General Internal Medicine 07/17/17 documented as of this encounter
--- OUTSIDE RECORDS SUMMARY | 2025-03-19 13:59 | XMS_ITS | Encounter Summary ---
Author Organization [facility] Address [address] [place] [address] Care Team Providers Care Urban Planning Teacher Name Role Phone Alberto Pacheco Primary Care Provider [phone] Charly Saxena Primary Care Provider [phone] Cheryl Calderon MD Primary Care Provider [phone] Reason for Visit * Reason Comments E-prescribing Refill Request Encounter Details Date Type Department Care Team (Late st Contact Info) Description 02/05/2012 Refill [facility] Rheumatology [address] [place] [address] Abel Fierro MD [address] [place] [address] E-prescribing Refill Request Social History Tobacco Use [...] filedocumented in this encounter Care Teams Urban Planning Teacher Relationship Specialty Start Date End Date Alberto Pacheco [address] [place] [address] PCP - General 07/19/08 05/24/13 Charly Saxena [facility] [address] [place] [address] PCP - General Internal Medicine 05/25/13 07/16/17 Cheryl Calderon MD [facility] Medicine [address] [place] [address] PCP - General Internal Medicine 07/17/17 documented as of this encounter
--- OUTSIDE RECORDS SUMMARY | 2025-03-19 13:59 | XMS_ITS | Encounter Summary ---
Author Organization [facility] Address [address] [place] [address] Care Team Providers Care Valve Maker Name Role Phone Alberto Pacheco Primary Care Provider [phone] Unknown Pcp, Non Rmg Primary Care Provider Unava ilable Charly Saxena Primary Care Provider [phone] Charly Saxena Primary Care Provider [phone] Cheryl Calderon MD Primary Care Provider [phone] Encounter Details Date Type Department Care Team (Late st Contact Info) Description 02/04/2007 Orders Only [facility] Rheumatology [address] [place] [address] Abel Fierro MD [address] [place] [address] Social History Tobacco Use Types Packs/Day Years [...] this encounter Procedures * Due to [place] [employer] law, this organization might not be sharing [...] - 35 U/L [facility] (CLIA# [id number]) 02/04/2007 02/04/2007 7:3 1 PM EDT us Abel Fierro MD LAB SAME DAY RESULT Final Resul t [facility] (CLIA# [id number]) [address] [place] [address] * (ABNORMAL) CBC 5 PART DIFF (02/04/2007) WHITE BLOOD COUNT 9.7 3.8 - 10.8 THOUS/UL [facility] (CLIA# [id number]) RBC 5.08 3.80 - 5.10 MIL/UL [facility] (CLIA# [id number]) Hemoglobin 15.4 11.7 - 15.5 G/DL [facility] (CLIA# [id number]) HCT (HEMATOCRIT) 45.3(H) 35.0 - 45.0 % [facility] (CLIA# [id number]) MCV 89.2 80.0 - 100.0 FL [facility] (CLIA# [id number]) MCH 30.4 27.0 - 33.0 PG [facility] (CLIA# [id number]) MCHC 34.1 32.0 - 36.0 G/DL [facility] (CLIA# [id number]) BAND % 0 0 - 5 % [facility] (CLIA# [id number]) NEUTROPHIL % 84(H) 48 - 75 % [facility] (CLIA# [id number]) LYMPHOCYTE % 10(L) 17 - 40 % [facility] (CLIA# [id number]) MONOCYTE % 6 0 - 14 % [facility] (CLIA# [id number]) EOSINOPHIL % 0 0 - 5 % [facility] (CLIA# [id number]) BASOPHIL % 0 0 - 3 % [facility] (CLIA# [id number]) ATYPICAL LYMPHOCYTE % 0 0 - 5 % [facility] (CLIA# [id number]) PLATELETS 392 140 - 400 THOUS/UL [facility] (CLIA# [id number]) BANDS # 0 0 - 750 CELLS/MCL [facility] (CLIA# [id number]) NEUTROPHILS # 8148(H) 1500 - 7800 CELLS/MCL [facility] (CLIA# [id number]) LYMPHOCYTES # 970 850 - 3900 CELLS/MCL [facility] (CLIA# [id number]) MONOCYTES # 582 200 - 950 CELLS/MCL [facility] (CLIA# [id number]) EOSINOPHILS # 0(L) 15 - 550 CELLS/MCL [facility] (CLIA# [id number]) BASOPHILS # 0 0 - 200 CELLS/MCL [facility] (CLIA# [id number]) ATYPICAL LYMPHOCYTES # 0 0 - 200 /UL [facility] (CLIA# [id number]) RDW 14.6 11.0 - 15.0 % [facility] (CLIA# [id number]) MPV 7.6 7.5 - 11.5 FL [facility] (CLIA# [id number]) 02/04/2007 02/04/2007 7:3 1 PM EDT us Abel Fierro MD LAB SAME DAY RESULT Final Resul t [facility] (CLIA# [id number]) [address] [place] [address] documented in this encounter Visit Diagnoses Diagnosis RHEUMATOID ARTHRITIS Rheumatoid arthritis documented in this encounter Care Teams Valve Maker Relationship Specialty Start Date End Date Alberto Pacheco [address] [place] [address] PCP - General 07/19/08 05/24/13 Unknown Pcp, Non Rmg PCP - General 06/30/08 07/18/08 Charly Saxena [facility] [address] [place] [address] PCP - General 01/18/06 06/29/08 Charly Saxena [facility] [address] [place] [address] PCP - General Internal Medicine 05/25/13 07/16/17 Cheryl Calderon MD [facility] Medicine [address] [place] [address] PCP - General Internal Medicine 07/17/17 documented as of this encounter
--- OUTSIDE RECORDS SUMMARY | 2025-03-19 13:59 | XMS_ITS | Encounter Summary ---
Author Organization [facility] Address [address] [place] [address] Care Team Providers Care Flat Sheet Maker Name Role Phone Charly Saxena Primary Care Provider [phone] Cheryl Calderon MD Primary Care Provider [phone] Encounter Details Date Type Department Care Team (Late st Contact Info) Description 12/28/2016 Orders Only [facility] Rheumatology [address] [place] [address] Abel Fierro MD [address] [place] [address] Social History Tobacco Use Types Packs/Day Years [...] 8:27 PM EDT Narrative Resulting Agency Comment [id number] us Abel Fierro MD LAB SAME DAY RESULT Final Resul t [facility] [address] [place] [address] * ALANINE AMINOTRANSFERASE (ALT), SERUM (12/28/2016 3:13 PM EDT) ALT (SGPT) 29 6 - 29 U/L [facility] 12/28/2016 3:13 PM EDT 12/28/2016 8:27 PM EDT Narrative Resulting Agency Comment [id number] us Abel Fierro MD LAB SAME DAY RESULT Final Resul t [facility] [address] [place] [address] * C-REACTIVE PROTEIN (CRP) - INFLAMMATION (12/28/2016 3:13 PM EDT) C reactive protein 0.24 <0.80 mg/dL [facility] Comment: Please be advised that patients taking Carboxypenicillins may exhibit falsely decreased C-Reactive Protein levels due to an analytical interference in this assay. 12/28/2016 3:13 PM EDT 12/28/2016 8:27 PM EDT Narrative Resulting Agency Comment [id number] Abel Fierro MD LABORATORY Final Result Performing Organization Address [facility] Co de Phone Number [facility] [address] [place] [address] * ERYTHROCYTE SEDIMENTATION RATE (ESR), WESTERGREN (12/28/2016 3:13 PM EDT) Pathologist [facility] Sedimentation Rate [place] (ESR) 6 < OR = 30 mm/h [facility] 12/28/2016 3:13 PM EDT 12/28/2016 8:27 PM EDT Narrative Resulting Agency Comment [id number] Abel Feirro MD LAB SAME DAY RESULT Final Resul t Performing Organization Address [facility] Co de Phone Number [facility] [address] [place] [address] * (ABNORMAL) BASIC METABOLIC PANEL WITH (GFR) [...] higher for people identified as -Lithuanian. GFR 77 > OR = 60 mL/min/1 [...] needs for GFR calculation. Resulting Agency Comment [id number] us Abel Fierro MD LABORATORY Final Result [facility] [address] [place] [address] * (ABNORMAL) CBC INCLUDES DIFFERENTIAL AND PLATELET [...] 8:27 PM EDT Narrative Resulting Agency Comment [id number] us Abel Fierro MD LAB SAME DAY RESULT Final Resul t [facility] [address] [place] [address] documented in this encounter Visit Diagnoses Diagnosis Rheumatoid arthritis involving multiple sites with positive rheumatoid factor (HCC) documented in this encounter Care Teams Flat Sheet Maker Relationship Specialty Start Date End Date Charly Saxena [facility] [address] [place] [address] PCP - General Internal Medicine 05/25/13 07/16/17 Cheryl Calderon MD [facility] Adult Medicine [address] [place] [address] PCP - General Internal Medicine 07/17/17 documented as of this encounter
--- OUTSIDE RECORDS SUMMARY | 2025-03-19 13:59 | XMS_ITS | Encounter Summary ---
Author Organization [facility] Address [address] [place] [address] Care Team Providers Care Nurse Practical Name Role Phone Alberto Pacheco Primary Care Provider [phone] Charly Saxena Primary Care Provider Cheryl Calderon MD Primary Care Provider [phone] Encounter Details Date Type Department Care Team (Late st Contact Info) Description 12/26/2010 Orders Only [facility] Rheumatology [address] [place] [address] Abel Fierro MD [address] [place] [address] Social History Tobacco Use Types Packs/Day Years [...] [facility] Comment:{WHITE BLOOD CELL CO UNT {[id number]) RBC 5.17(H) 3.80 - 5.10 Million/u L [facility] Comment:{RED BLOOD CELL COUN T {[id number]) Hemoglobin 15.0 11.7 - 15.5 g/dL [facility] Comment:{HEMOGLOBIN {[id number]) Hematocrit 46.0(H) 35.0 - 45.0 % [facility] Comment:{HEMATOCRIT {[id number]) MCV 89.1 80.0 - 100.0 fL [facility] Comment:{MCV {[id number]) MCH 29.0 27.0 - 33.0 pg [facility] Comment:{MCH {[id number]) MCHC 32.5 32.0 - 36.0 g/dL [facility] Comment:{MCHC {[id number]) RDW 16.1(H) 11.0 - 15.0 % [facility] Comment:{RDW {[id number]) PLT 300 140 - 400 Thousand/ uL [facility] Comment:{PLATELET COUNT {[id number]) MPV 7.6 7.5 - 11.5 fL [facility] Comment:{MPV {[id number]) Neutrophils # 7707 1500 - 7800 cells/uL [facility] Comment:{ABSOLUTE NEUTROPHIL S {[id number]) Lymphocytes # 2163 850 - 3900 cells/uL [facility] Comment:{ABSOLUTE LYMPHOCYTE S {[id number]) Monocytes # 452 200 - 950 cells/uL [facility] Comment:{ABSOLUTE MONOCYTES {[id number]) Eosinophils # 147 15 - 500 cells/uL [facility] Comment:{ABSOLUTE EOSINOPHIL S {[id number]) Basophils # 32 0 - 200 cells/uL [facility] Comment:{ABSOLUTE BASOPHILS {[id number]) Neutrophils % 73.4 % [facility] Comment:{NEUTROPHILS {[id number]) Lymphocytes % 20.6 % [facility] Comment:{LYMPHOCYTES {[id number]) Monocytes % 4.3 % [facility] Comment:{MONOCYTES {[id number]) Eosinophils % 1.4 % [facility] Comment:{EOSINOPHILS {[id number]) Basophils % 0.3 % [facility] Comment:{BASOPHILS {[id number]) 12/26/2010 9:49 AM EDT 12/27/2010 12:33 AM EDT Narrative Resulting Agency Comment [id number] us Abel Fierro MD LAB SAME DAY RESULT Final Resul t Performing Organization Address [facility] Co de Phone Number [facility] [address] [place] [address] * ALANINE AMINOTRANSFERASE (ALT), SERUM (12/26/2010 9:49 AM EDT) ALT (SGPT) 16 6 - 40 U/L [facility] Comment:{ALT {[id number]) 12/26/2010 9:49 AM EDT 12/27/2010 12:33 AM EDT Narrative Resulting Agency Comment [id number] us Abel Fierro MD LAB SAME DAY RESULT Final Resul t Performing Organization Address City/[facility] Co de Phone Number [facility] [address] [place] [address] * ASPARTATE AMINOTRANSFERASE (AST), SERUM (12/26/2010 9:49 AM EDT) AST (SGOT) 16 10 - 35 U/L [facility] Comment:{AST {[id number]) 12/26/2010 9:49 AM EDT 12/27/2010 12:33 AM EDT Narrative Resulting Agency Comment [id number] us Abel Fierro MD LAB SAME DAY RESULT Final Resul t Performing Organization Address [facility] Co de Phone Number [facility] [address] [place] [address] * CREATININE WITH GLOMERULAR FILTRATION RATE, ESTIMATED (EGFR) (12/26/2010 9:49 AM EDT) Creatinine 0.86 0.60 - 1.10 mg/dL [facility] Comment:{CREATININE {[id number]) GFR 76 > OR = 60 mL/min/1.7 3m2 [facility] Comment:{eGFR NON-AFR. AMERI CAN {[id number]) GFR () 88 > OR = 60 mL/min/1.7 3m2 [facility] Comment:{eGFR AMERIC AN {[id number]) 12/26/2010 9:49 AM EDT 12/27/2010 12:33 AM [...] t Performing Organization Address City/[facility] Co de Phone Number [facility] [address] [place] [address] documented in this encounter Visit Diagnoses Diagnosis Rheumatoid arthritis(714.0) Rheumatoid arthritis documented in this encounter Care Teams Nurse Practical Relationship Specialty Start Date End Date Alberto Pacheco [address] [place] [address] PCP - General 07/19/08 05/24/13 Charly Saxena [facility] [address] [place] [address] PCP - General Internal Medicine 05/25/13 07/16/17 Cheryl Calderon MD [facility] Medicine [address] [place] [address] PCP - General Internal Medicine 07/17/17 documented as of this encounter
--- OUTSIDE RECORDS SUMMARY | 2025-03-19 13:59 | XMS_ITS | Encounter Summary ---
Author Organization [facility] Address [address] [place] [address] Care Team Providers Care Petrography Teacher Name Role Phone Charly Saxena Primary Care Provider [phone] Cheryl Calderon MD Primary Care Provider [phone] Encounter Details Date Type Department Care Team (Late st Contact Info) Description 10/15/2016 Orders Only [facility] Rheumatology [address] [place] [address] Abel Fierro MD [address] [place] [address] Social History Tobacco Use Types Packs/Day Years [...] EDT) C reactive protein 0.19 <0.80 mg/dL [facility] Comment: Please be advised that patients taking Carboxypenicillins may exhibit falsely decreased C-Reactive Protein levels due to an analytical interference in this assay. 10/15/2016 12:3 9 PM EDT 10/15/2016 7:34 PM EDT Narrative Resulting Agency Comment [id number] us Abel Fierro MD LABORATORY Final Result [facility] [address] [place] [address] * ERYTHROCYTE SEDIMENTATION RATE (ESR), KUNAL (10/15/2016 12:39 PM EDT) Sedimentation Rate [place] (ESR) 11 < OR = 30 mm/h [facility] 10/15/2016 12:3 9 PM EDT 10/15/2016 7:34 PM EDT Narrative Resulting Agency Comment [id number] us Abel Fierro MD LAB SAME DAY RESULT Final Resul t Performing Organization Address [facility] de Phone Number [facility] [address] [place] [address] * CREATININE WITH GLOMERULAR FILTRATION RATE, ESTIMATED (EGFR) (10/15/2016 12:39 PM EDT) Creatinine 0.79 0.50 - 0.99 mg/dL [facility] Comment: For patients >49 years of age, the reference limit for Creatinine is approximately 13% higher for people identified as -Ghanaian. GFR 81 > OR = 60 mL/min/1. [...] needs for GFR calculation. Resulting Agency Comment [id number] us Abel Fierro MD LAB SAME DAY RESULT Final Resul t Performing Organization Address [facility] Co de Phone Number [facility] [address] [place] [address] * ALANINE AMINOTRANSFERASE (ALT), SERUM (10/15/2016 12:39 PM EDT) ALT (SGPT) 27 6 - 29 U/L [facility] 10/15/2016 12:3 9 PM EDT 10/15/2016 7:34 PM EDT Narrative Resulting Agency Comment [id number] us Abel Fierro MD LAB SAME DAY RESULT Final Resul t Performing Organization Address City/[facility] Co de Phone Number [facility] [address] [place] [address] * ASPARTATE AMINOTRANSFERASE (AST), SERUM (10/15/2016 12:39 PM EDT) AST (SGOT) 25 10 - 35 U/L [facility] 10/15/2016 12:3 9 PM EDT 10/15/2016 7:34 PM EDT Narrative Resulting Agency Comment [id number] us Abel Fierro MD LAB SAME DAY RESULT Final Resul t Performing Organization Address [facility] de Phone Number [facility] [address] [place] [address] * (ABNORMAL) CBC INCLUDES DIFFERENTIAL AND PLATELET [...] 7:34 PM EDT Narrative Resulting Agency Comment [id number] us Abel Fierro MD LAB SAME DAY RESULT Final Resul t [facility] [address] [place] [address] documented in this encounter Visit Diagnoses Diagnosis Rheumatoid arthritis involving multiple sites with positive rheumatoid factor (HCC) [M05.79] documented in this encounter Care Teams Petrography Teacher Relationship Specialty Start Date End Date Charly Saxena [facility] [address] [place] [address] PCP - General Internal Medicine 05/25/13 07/16/17 Cheryl Calderon MD Count Includes [facility] Medicine [address] [place] [address] PCP - General Internal Medicine 07/17/17 documented as of this encounter
--- OUTSIDE RECORDS SUMMARY | 2025-03-19 13:59 | XMS_ITS | Encounter Summary ---
Author Organization [facility] Address [address] [place] [address] Care Team Providers Care Pick Up Truck Driver Name Role Phone Alberto Pacheco Primary Care Provider [phone] Charly Saxena Primary Care Provider [phone] Cheryl Calderon MD Primary Care Provider [phone] Encounter Details Date Type Department Care Team (Late st Contact Info) Description 04/18/2012 Orders Only [facility] Rheumatology [address] [place] [address] Abel Fierro MD [address] [place] [address] Social History Tobacco Use Types Packs/Day Years [...] including tying shoelaces and doing buttons? 1 04/18/2012 12:00 PM EST Ailyn Francis Iv onne 2. Get in and out of bed? 1 04/18/2012 12:0 0 PM EST Kwaku Velardee 3. Lift a full cup or glass to your mouth? 1 04/18/2012 12:00 PM EST Ailyn Francis Iv onne 4. Walk outdoors on flat ground? 1 04/18/20 12 12:00 PM EST Ailyn Francis Dolores 5. Wash and dry your entire body? 1 012 12:00 PM EST Ailyn Francis Dolores 6. Bend down to pick up man clot francis from the floor? 1 04/18/2012 12:00 PM EST Ailyn Francis Iv onne 7. Turn regular faucets on a nd off? 1 04/18/2012 12:00 PM EST Ailyn Francis Iv onne 8. Get in and out of a car, bus, train or airplane? 1 04/18/2012 12:00 PM EST Ailyn Francis Iv onne 9. Walk two miles, if you wish? 3 2 12:00 PM Kwaku Wooe 10. Participate in recreatio nal activities and sports as you would like, if you wish? 3 04/18/2012 12:00 PM EST Dolores Rivera FN TOTAL 14 04/18/2012 12:00 PM EST Dolores Singh FN CONVERSION 4.7 04/18/2012 12:00 PM EST Edward Francis Dolores * Health Assessment Pain Question Question Answer Date of Assessment Author How much pain have you had because of your condition OVER THE PAST WEEK? 5.5 04/18/2012 12:00 PM EST Ailyn Francis Iv onne PN TOTAL 5.5 04/18/2012 12:00 PM EST Michael Francis Dolores * Affect of Illness and Health Conditions Question Answer Date of Assessment Author PTGL TOTAL 3 04/18/2012 12:00 PM Dolores Taylor Considering all the ways in which illness and health conditions may affect you at this time, please indicate below how you are doing? 3.0 04/18/2012 12:00 PM Dolores Stephen Ch * RAPID 3 Question Answer Date of Assessment Author RAPID 3 TOTAL SCORE 13.2 04/18/2012 12:00 PM Dolores Hadley documented as of this encounter Plan of [...] HIV tests. * ERYTHROCYTE SEDIMENTATION RATE (ESR)KUNAL (04/18/2012 1:37 PM EST) Sedimentation Rate [place] (ESR) 22 < OR = 30 mm/h [facility] Comment:{SED RATE BY JONATHAN SYED {[id number]) 04/18/2012 1:37 PM EST 04/18/2012 11:16 PM EST Narrative Resulting Agency Comment [id number] us Abel Fierro MD LAB SAME DAY RESULT Final Resul t [facility] [address] [place] [address] * (ABNORMAL) C-REACTIVE PROTEIN (CRP) - INFLAMMATION (04/18/2012 1:37 PM EST) C reactive protein 1.36(H) <0.80 mg/dL [facility] Comment: {C-REACTIVE PROTEIN {[id number]) Please be advised that patients taking Carboxypenicillins may exhibit falsely decreased C-Reactive Protein levels due to an analytical interference in this assay. 04/18/2012 1:37 PM EST 04/18/2012 11:16 PM EST Narrative Resulting Agency Comment [id number] us Abel Fierro MD LABORATORY Final Result Performing Organization Address [facility] de Phone Number [facility] [address] [place] [address] * CREATININE WITH GLOMERULAR FILTRATION RATE, ESTIMATED (EGFR) (04/18/2012 1:37 PM EST) Creatinine 0.77 0.50 - 1.05 mg/dL [facility] Comment: {CREATININE {[id number]) For patients >49 years of age, the reference limit for Creatinine is approximately 13% higher for people identified as -Jordanian. GFR 86 > OR = 60 mL/min/1. 73m2 [facility] Comment:{eGFR NON-AFR. AMERI CAN {[id number]) GFR () 99 > OR = 60 mL/min/1. 73m2 [facility] Comment:{eGFR AMERIC AN {[id number]) 04/18/2012 1:37 PM EST 04/18/2012 11:16 PM [...] needs for GFR calculation. Resulting Agency Comment [id number] us Abel Fierro MD LAB SAME DAY RESULT Final Resul t Performing Organization Address [facility] Co de Phone Number [facility] [address] [place] [address] * (ABNORMAL) CBC INCLUDES DIFFERENTIAL AND PLATELET COUNT (04/18/2012 1:37 PM EST) WBC 8.3 3.8 - 10.8 Thousand/ uL [facility] Comment:{WHITE BLOOD CELL CO UNT {[id number]) RBC 5.25(H) 3.80 - 5.10 Million/u L [facility] Comment:{RED BLOOD CELL COUN T {[id number]) Hemoglobin 15.1 11.7 - 15.5 g/dL [facility] Comment:{HEMOGLOBIN {[id number]) Hematocrit 46.5(H) 35.0 - 45.0 % [facility] Comment:{HEMATOCRIT {[id number]) MCV 88.5 80.0 - 100.0 fL [facility] Comment:{MCV {[id number]) MCH 28.7 27.0 - 33.0 pg [facility] Comment:{MCH {[id number]) MCHC 32.5 32.0 - 36.0 g/dL [facility] Comment:{MCHC {[id number]) RDW 13.4 11.0 - 15.0 % [facility] Comment:{RDW {[id number]) PLT 318 140 - 400 Thousand/ uL [facility] Comment:{PLATELET COUNT {[id number]) MPV 8.2 7.5 - 11.5 fL [facility] Comment:{MPV {[id number]) Neutrophils # 4681 1500 - 7800 cells/uL [facility] Comment:{ABSOLUTE NEUTROPHIL S {[id number]) Lymphocytes # 2598 850 - 3900 cells/uL [facility] Comment:{ABSOLUTE LYMPHOCYTE S {[id number]) Monocytes # 805 200 - 950 cells/uL [facility] Comment:{ABSOLUTE MONOCYTES {[id number]) Eosinophils # 199 15 - 500 cells/uL [facility] Comment:{ABSOLUTE EOSINOPHIL S {[id number]) Basophils # 17 0 - 200 cells/uL [facility] Comment:{ABSOLUTE BASOPHILS {[id number]) Neutrophils % 56.4 % [facility] Comment:{NEUTROPHILS {[id number]) Lymphocytes % 31.3 % [facility] Comment:{LYMPHOCYTES {[id number]) Monocytes % 9.7 % [facility] Comment:{MONOCYTES {[id number]) Eosinophils % 2.4 % [facility] Comment:{EOSINOPHILS {[id number]) Basophils % 0.2 % [facility] Comment:{BASOPHILS {[id number]) 04/18/2012 1:37 PM EST 04/18/2012 11:16 PM EST Narrative Resulting Agency Comment [id number] us Abel Fierro MD LAB SAME DAY RESULT Final Resul t Performing Organization Address City/[facility] Co de Phone Number [facility] [address] [place] [address] * ASPARTATE AMINOTRANSFERASE (AST), SERUM (04/18/2012 1:37 PM EST) AST (SGOT) 18 10 - 35 U/L [facility] Comment:{AST {[id number]) 04/18/2012 1:37 PM EST 04/18/2012 11:16 PM EST Narrative Resulting Agency Comment [id number] us Abel Fierro MD LAB SAME DAY RESULT Final Resul t Performing Organization Address [facility] de Phone Number [facility] [address] [place] [address] * ALANINE AMINOTRANSFERASE (ALT), SERUM (04/18/2012 1:37 PM EST) ALT (SGPT) 17 6 - 40 U/L [facility] Comment:{ALT {[id number]) 04/18/2012 1:37 PM EST 04/18/2012 11:16 PM EST Narrative Resulting Agency Comment [id number] us Abel Fierro MD LAB SAME DAY RESULT Final Resul t Performing Organization Address [facility] Co de Phone Number [facility] [address] [place] [address] documented in this encounter Visit Diagnoses Diagnosis Rheumatoid arthritis(714.0) Rheumatoid arthritis documented in this encounter Care Teams Pick Up Truck Driver Relationship Specialty Start Date End Date Alberto Pacheco [address] [place] [address] PCP - General 07/19/08 05/24/13 Charly Saxena [facility] [address] [place] [address] PCP - General Internal Medicine 05/25/13 07/16/17 Cheryl Calderon MD [facility] Adult Medicine [address] [place] [address] PCP - General Internal Medicine 07/17/17 documented as of this encounter
--- OUTSIDE RECORDS SUMMARY | 2025-03-19 13:59 | XMS_ITS | Encounter Summary ---
Author Organization [facility] Address [address] [place] [address] Care Team Providers Care Diesel Locomotive Engineer Name Role Phone Alberto Pacheco Primary Care Provider [phone] Charly Saxena Primary Care Provider [phone] Cheryl Calderon MD Primary Care Provider [phone] Encounter Details Date Type Department Care Team (Late st Contact Info) Description 08/21/2010 Orders Only [facility] Rheumatology [address] [place] [address] Abel Fierro MD [address] [place] [address] Social History Tobacco Use Types Packs/Day Years [...] Final Resul t Performing Organization Address [facility] Co de Phone Number [facility] [address] [place] [address] * ALANINE AMINOTRANSFERASE (ALT), SERUM (08/21/2010) ALT (SGPT) 37 6 - 40 U/L [facility] 08/21/2010 08/21/2010 9:0 1 PM EDT us Abel Fierro MD LAB SAME DAY RESULT Final Resul t Performing Organization Address City/[facility] Co de Phone Number [facility] [address] [place] [address] * ASPARTATE AMINOTRANSFERASE (AST), SERUM (08/21/2010) AST (SGOT) 27 10 - 35 U/L [facility] 08/21/2010 08/21/2010 9:0 1 PM EDT us Abel Fierro MD LAB SAME DAY RESULT Final Resul t Performing Organization Address City/[facility]/ZIP Co de Phone Number [facility] [address] [place] [address] * (ABNORMAL) CBC 5 PART DIFF (08/21/2010) [...] Co de Phone Number [facility] [address] [place] [address] documented in this encounter Visit Diagnoses Diagnosis Rheumatoid arthritis(714.0) Rheumatoid arthritis documented in this encounter Care Teams Diesel Locomotive Engineer Relationship Specialty Start Date End Date Alberto Pacheco [address] [place] [address] PCP - General 07/19/08 05/24/13 Charly Saxena [facility] [address] [place] [address] PCP - General Internal Medicine 05/25/13 07/16/17 Cheryl Calderon MD [facility] Medicine [address] [place] [address] PCP - General Internal Medicine 07/17/17 documented as of this encounter
--- OUTSIDE RECORDS SUMMARY | 2025-03-19 13:59 | XMS_ITS | Encounter Summary ---
Author Organization [facility] Address [address] [place] [address] Care Team Providers Care Sow Farm Barn Technician Name Role Phone Charly Saxena Primary Care Provider [phone] Cheryl Calderon MD Primary Care Provider [phone] Encounter Details Date Type Department Care Team (Late st Contact Info) Description 05/24/2016 Orders Only [facility] Rheumatology [address] [place] [address] Abel Fierro MD [address] [place] [address] Social History Tobacco Use Types Packs/Day Years [...] approximately 13% higher for people identified as -Cuban. GFR 66 > OR = 60 mL/min/1. [...] needs for GFR calculation. Resulting Agency Comment [id number] us Abel Fierro MD LAB SAME DAY RESULT Final Resul t [facility] [address] [place] [address] * ALANINE AMINOTRANSFERASE (ALT), SERUM (05/24/2016 10:20 AM EST) ALT (SGPT) 27 6 - 29 U/L [facility] 05/24/2016 10:2 0 AM EST 05/24/2016 5:04 PM EST Narrative Resulting Agency Comment [id number] us Abel Fierro MD LAB SAME DAY RESULT Final Resul t Performing Organization Address City/[facility]/ZIP Co de Phone Number [facility] [address] [place] [address] * ASPARTATE AMINOTRANSFERASE (AST), SERUM (05/24/2016 10:20 AM EST) AST (SGOT) 23 10 - 35 U/L [facility] 05/24/2016 10:2 0 AM EST 05/24/2016 5:04 PM EST Narrative Resulting Agency Comment [id number] us Abel Fierro MD LAB SAME DAY RESULT Final Resul t Performing Organization Address [facility] de Phone Number [facility] [address] [place] [address] * (ABNORMAL) CBC INCLUDES DIFFERENTIAL AND PLATELET [...] 5:04 PM EST Narrative Resulting Agency Comment [id number] us Abel Fierro MD LAB SAME DAY RESULT Final Resul t Performing Organization Address City/State/[facility] Co de Phone Number [facility] [address] [place] [address] documented in this encounter Visit Diagnoses Diagnosis Rheumatoid arthritis involving multiple sites with positive rheumatoid factor (HCC) [M05.79] documented in this encounter Care Teams Sow Farm Barn Technician Relationship Specialty Start Date End Date Charly Saxena [facility] [address] [place] [address] PCP - General Internal Medicine 05/25/13 07/16/17 Cheryl Calderon MD [facility] Adult Medicine [address] [place] [address] PCP - General Internal Medicine 07/17/17 documented as of this encounter
--- OUTSIDE RECORDS SUMMARY | 2025-03-19 13:59 | XMS_ITS | Encounter Summary ---
Author Organization [facility] Address [address] [place] [address] Care Team Providers Care Building Drafting Officer Name Role Phone Cheryl Calderon MD Primary Care Provider [phone] Encounter Details Date Type Department Care Team (Late st Contact Info) Description 02/16/2019 Orders Only [facility] Rheumatology [address] [place] [phone] Melanie Aguirre MD Social History Tobacco Use [...] 13% higher for people identified as -Micronesian. EGFR 93 > OR = 60 mL/min/1 [...] needs for GFR calculation. Resulting Agency Comment [id number] Melanie Aguirre MD LABORATORY Final Result Performing Organization Address [facility]/ZIP Co de Phone Number [facility] [address] [place] [address] * (ABNORMAL) C-REACTIVE PROTEIN (CRP) - INFLAMMATION (02/16/2019 2:04 PM EDT) Pathologist [facility] C reactive protein 79.2(H) <8.0 mg/L [facility] 02/16/2019 2:04 PM EDT 02/16/2019 11:45 PM EDT Narrative Resulting Agency Comment [id number] Melanie Aguirre MD LABORATORY Final Result Performing Organization Address [facility] Co de Phone Number [facility] [address] [place] [address] * (ABNORMAL) CBC INCLUDES DIFFERENTIAL AND PLATELET COUNT (02/16/2019 2:04 PM EDT) Pathologist [facility] WBC 10.8 3.8 - 10.8 Thousand/u L [...] 11:45 PM EDT Narrative Resulting Agency Comment [id number] us Melanie Aguirre MD LAB SAME DAY RESULT Final Result Performing Organization Address City/[facility] Co de Phone Number [facility] [address] [place] [address] * (ABNORMAL) ERYTHROCYTE SEDIMENTATION RATE (ESR), WESTERGREN (02/16/2019 2:04 PM EDT) Sedimentation Rate [place] (ESR) 72(H) < OR = 30 mm/h [facility] 02/16/2019 2:04 PM EDT 02/16/2019 11:45 PM EDT Narrative Resulting Agency Comment [id number] us Melanie Aguirre MD LAB SAME DAY RESULT Final Result Performing Organization Address [facility] de Phone Number [facility] [address] [place] [address] documented in this encounter Visit Diagnoses Diagnosis Rheumatoid arthritis involving multiple sites with positive rheumatoid factor (HCC) documented in this encounter Care Teams Building Drafting Officer Relationship Specialty Start Date End Date Cheryl Calderon MD [facility] Adult Medicine [address] [place] [address] PCP - General Internal Medicine 07/17/17 documented as of this encounter
--- OUTSIDE RECORDS SUMMARY | 2025-03-19 13:59 | XMS_ITS | Encounter Summary ---
Author Organization [facility] Address [address] [place] [address] Care Team Providers Care Shoe Stitcher Name Role Phone Alberto Pacheco Primary Care Provider [phone] Charly Saxena Primary Care Provider [phone] Cheryl Calderon MD Primary Care Provider [phone] Reason for Visit * Reason Comments E-prescribing Refill Request Encounter Details Date Type Department Care Team (Late st Contact Info) Description 06/16/2011 Refill [facility] Rheumatology [address] [place] [address] Abel Fierro MD [address] [place] [address] E-prescribing Refill Request Social History Tobacco Use [...] her cruise. xc: Alberto Pacheco MD [address] [facility] Next OV: No future appointments. Pertinent [...] on filedocumented in this encounter Care Teams Shoe Stitcher Relationship Specialty Start Date End Date Alberto Pacheco [address] [place] [phone] PCP - General 07/19/08 05/24/13 Charly Saxena [facility] [address] [place] [address] PCP - General Internal Medicine 05/25/13 07/16/17 Cheryl Calderon MD [facility] Adult Medicine [address] [place] [address] PCP - General Internal Medicine 07/17/17 documented as of this encounter
--- OUTSIDE RECORDS SUMMARY | 2025-03-19 13:59 | XMS_ITS | Encounter Summary ---
Author Organization [facility] Address [address] [place] [address] Care Team Providers Care Entertainment Musician Name Role Phone Alberto Pacheco Primary Care Provider [phone] Unknown Pcp, Non Rmg Primary Care Provider Unava ilable Charly Saxena Primary Care Provider [phone] Charly Saxena Primary Care Provider [phone] Cheryl Calderon MD Primary Care Provider [phone] Encounter Details Date Type Department Care Team (Late st Contact Info) Description 02/03/2007 Orders Only [facility] Rheumatology [address] [place] [address] Nikkie Moss, STAFFING ASSOCIATE [address] [place], [place] [phone] Social History Tobacco Use Types Packs/Day Years [...] of this encounter Results * Due to [place] state law, this organization might not be sharing negative HIV tests. * ASPARTATE AMINOTRANSFERASE (AST), SERUM (02/04/2007) AST (SGOT) 16 10 - 35 U/L [facility] (CLIA# [id number]) 02/04/2007 02/04/2007 7:3 1 PM EDT us Abel Fierro MD LAB SAME DAY RESULT Final Resul t [facility] (CLIA# [id number]) [address] [place] [address] * (ABNORMAL) CBC 5 PART DIFF (02/04/2007) WHITE BLOOD COUNT 9.7 3.8 - 10.8 THOUS/UL [facility] (CLIA# [id number]) RBC 5.08 3.80 - 5.10 MIL/UL [facility] (CLIA# [id number]) Hemoglobin 15.4 11.7 - 15.5 G/DL [facility] (CLIA# [id number]) HCT (HEMATOCRIT) 45.3(H) 35.0 - 45.0 % [facility] (CLIA# [id number]) MCV 89.2 80.0 - 100.0 FL [facility] (CLIA# [id number]) MCH 30.4 27.0 - 33.0 PG [facility] (CLIA# [id number]) MCHC 34.1 32.0 - 36.0 G/DL [facility] (CLIA# [id number]) BAND % 0 0 - 5 % [facility] (CLIA# [id number]) NEUTROPHIL % 84(H) 48 - 75 % [facility] (CLIA# [id number]) LYMPHOCYTE % 10(L) 17 - 40 % [facility] (CLIA# [id number]) MONOCYTE % 6 0 - 14 % [facility] (CLIA# [id number]) EOSINOPHIL % 0 0 - 5 % [facility] (CLIA# [id number]) BASOPHIL % 0 0 - 3 % [facility] (CLIA# [id number]) ATYPICAL LYMPHOCYTE % 0 0 - 5 % [facility] (CLIA# [id number]) PLATELETS 392 140 - 400 THOUS/UL [facility] (CLIA# [id number]) BANDS # 0 0 - 750 CELLS/MCL [facility] (CLIA# [id number]) NEUTROPHILS # 8148(H) 1500 - 7800 CELLS/MCL [facility] (CLIA# [id number]) LYMPHOCYTES # 970 850 - 3900 CELLS/MCL [facility] (CLIA# [id number]) MONOCYTES # 582 200 - 950 CELLS/MCL [facility] (CLIA# [id number]) EOSINOPHILS # 0(L) 15 - 550 CELLS/MCL [facility] (CLIA# [id number]) BASOPHILS # 0 0 - 200 CELLS/MCL [facility] (CLIA# [id number]) ATYPICAL LYMPHOCYTES # 0 0 - 200 /UL [facility] (CLIA# [id number]) RDW 14.6 11.0 - 15.0 % [facility] (CLIA# [id number]) MPV 7.6 7.5 - 11.5 FL [facility] (CLIA# [id number]) 02/04/2007 02/04/2007 7:3 1 PM EDT us Abel Fierro MD LAB SAME DAY RESULT Final Resul [facility] (CLIA# [id number]) [address] [place] [address] documented in this encounter Visit Diagnoses Diagnosis RHEUMATOID ARTHRITIS- Primary Rheumatoid arthritis documented in this encounter Care Teams Entertainment Musician Relationship Specialty Start Date End Date Alberto Pacheco [address] [place] [phone] PCP - General 07/19/08 05/24/13 Unknown Pcp, Non Rmg PCP - General 06/30/08 07/18/08 Charly Saxena [address] [address] PCP - General 01/18/06 06/29/08 Charly Saxena [address] [place] [address] PCP - General Internal Medicine 05/25/13 07/16/17 Cheryl Calderon MD [facility] Adult Medicine [address] [place] [address] PCP - General Internal Medicine 07/17/17 documented as of this encounter
--- OUTSIDE RECORDS SUMMARY | 2025-03-19 14:00 | XMS_ITS | Encounter Summary ---
Author Organization [facility] Address [address] [place] [address] Care Team Providers Care Soda Dialyzer Name Role Phone Alberto Pacheco Primary Care Provider [phone] Charly Saxena Primary Care Provider [phone] Cehryl Calderon MD Primary Care Provider [phone] Encounter Details Date Type Department Care Team (Late st Contact Info) Description 05/13/2009 Orders Only [facility] Rheumatology [address] [place] [address] Abel Fierro MD [address] [place] [address] Social History Tobacco Use Types Packs/Day Years [...] as of this encounter Functional Status * 1. Dress yourself, including tying shoelaces and doing buttons? Answer Date of Assessment Author 1 05/13/2009 1:00 PM Smitha Rodriguez * 2. Get in and out of bed? Answer Date of Assessment Author 1 05/13/2009 1:00 PM Smitha Rodriguez * 3. Lift a full cup or glass to your mouth? Answer Date of Assessment Author 1 05/13/2009 1:00 PM EST Smitha Christianson nne * 4. Walk outdoors on flat ground? Answer Date of Assessment Author 2 05/13/2009 1:00 PM EST Smitha Christianson nne * 5. Wash and dry your entire body? Answer Date of Assessment Author 2 05/13/2009 1:00 PM EST Tricia Christiansona nne * 6. Bend down to pick out hand clothing from the floor? Answer Date of Assessment Author 2 05/13/2009 1:00 PM EST Tricia Christiansona nne * 7. Turn regular faucets on and off? Answer Date of Assessment Author 2 05/13/2009 1:00 PM EST Smitha Christianson nne * 8. Get in and out of a car, bus, train or airplane? Answer Date of Assessment Author 2 05/13/2009 1:00 PM EST Tricia Christiansona nne * 9. Walk two miles, if you wish? Answer Date of Assessment Author 3 05/13/2009 1:00 PM EST Smitha Christianson nne * 10. Participate in recreational activities and sports as you would like, if you wish? Answer Date of Assessment Author 3 05/13/2009 1:00 PM EST Smitha Christianson nne * How much pain have you had because of your condition OVER THE PAST WEEK? Answer Date of Assessment Author 8.0 05/13/2009 1:00 PM EST Smitha Christianson nne * RAPID 3 TOTAL SCORE Answer Date of Assessment Author 22.3 05/13/2009 1:00 PM EST Smitha Christiansone * FN TOTAL Answer Date of Assessment Author 19 05/13/2009 1:00 PM EST Tricia Christiansona nne * PN TOTAL Answer Date of Assessment Author 8 05/13/2009 1:00 PM EST Tricia Christiansona nne * PTGL TOTAL Answer Date of Assessment Author 8 05/13/2009 1:00 PM EST Tricia Christiansona nne * Considering all the ways in which illness and health conditions may affect you at this time, pleaseindicate below how you are doing? Answer Date of Assessment Author 8.0 05/13/2009 1:00 PM EST Smitha Christianson nne * FN CONVERSION Answer Date of Assessment Author 6.3 05/13/2009 1:00 PM EST Smitha Christianson susy documented as of this encounter Plan of Treatment Not on file documented as of this encounter Procedures * Due to [facility] law, this organization might not be [...] in this encounter Results * Due to [facility] law, this organization might not be [...] with more precise needs for GFR calculation. Abel Fierro MD LABORATORY Final Result Performing Organization Address [facility] de Phone Number [facility] [address] [place] [address] * SED RATE ESR (05/13/2009) ESR (ERYTHROCYTE SEDIMENTATION RATE) 19 0 - 30 MM/HR [facility] 05/13/2009 05/13/2009 8:0 1 PM EST Abel Fierro MD LAB SAME DAY RESULT Final Resul t Performing Organization Address [facility] Phone Number [facility] [address] [place] [address] * ALANINE AMINOTRANSFERASE (ALT), SERUM (05/13/2009) ALT (SGPT) 22 6 - 40 U/L [facility] 05/13/2009 05/13/2009 8:0 1 PM EST Abel Fierro MD LAB SAME DAY RESULT Final Resul t Performing Organization Address [facility] Phone Number [facility] [address] [place] [address] * ASPARTATE AMINOTRANSFERASE (AST), SERUM (05/13/2009) AST (SGOT) 21 10 - 35 U/L [facility] 05/13/2009 05/13/2009 8:0 1 PM EST Abel Fierro MD LAB SAME DAY RESULT Final Resul t Performing Organization Address [facility] de Phone Number [facility] [address] [place] [address] * (ABNORMAL) CBC 5 PART DIFF (05/13/2009) [...] RESULT Final Resul t [facility] [address] [place] [address] documented in this encounter Visit Diagnoses Diagnosis Rheumatoid arthritis(714.0) Rheumatoid arthritis documented in this encounter Care Teams Soda Dialyzer Relationship Specialty Start Date End Date Alberto Pacheco [address] [place] [address] PCP - General 07/19/08 05/24/13 Charly Saxena [facility] [address] [place] [address] PCP - General Internal Medicine 05/25/13 07/16/17 Cheryl Calderon MD [facility] [address] [place] [address] PCP - General Internal Medicine 07/17/17 documented as of this encounter
--- OUTSIDE RECORDS SUMMARY | 2025-03-19 14:00 | XMS_ITS | Encounter Summary ---
Author Organization [facility] Address [address] [place] [address] Care Team Providers Care Machine Adjuster Leader Name Role Phone Alberto Pacheco Primary Care Provider [phone] Charly Saxena Primary Care Provider [phone] Cheryl Calderon MD Primary Care Provider [phone] Encounter Details Date Type Department Care Team (Late st Contact Info) Description 01/23/2010 Orders Only [facility] Rheumatology [address] [place] [address] Abel Fierro MD [address] [place] [address] Social History Tobacco Use Types Packs/Day Years [...] doing buttons? Answer Date of Assessment Author 2 01/23/2010 2:00 PM EDT Colten Mccormick * 2. Get in and out of bed? Answer Date of Assessment Author 2 01/23/2010 2:00 PM EDT Colten Mccormick * 3. Lift a full cup or glass to your mouth? Answer Date of Assessment Author 1 01/23/2010 2:00 PM Colten Rosadoy * 4. Walk outdoors on flat ground? Answer Date of Assessment Author 2 01/23/2010 2:00 PM Colten Rosadoy * 5. Wash and dry your entire body? Answer Date of Assessment Author 2 01/23/2010 2:00 PM Colten Rosado acy * 6. Bend down to poultry picker clothing from the floor? Answer Date of Assessment Author 2 01/23/2010 2:00 PM Colten Rosado acy * 7. Turn regular faucets on and off? Answer Date of Assessment Author 1 01/23/2010 2:00 PM Colten Rosadoy * 8. Get in and out of a car, bus, train or airplane? Answer Date of Assessment Author 2 01/23/2010 2:00 PM Colten Rosado acy * 9. Walk two miles, if you wish? Answer Date of Assessment Author 3 01/23/2010 2:00 PM Colten oRsado acy * 10. Participate in recreational activities and sports as you would like, if you wish? Answer Date of Assessment Author 3 01/23/2010 2:00 PM Colten Rosadoy * How much pain have you had because of your condition OVER THE PAST WEEK? Answer Date of Assessment Author 10 01/23/2010 2:00 PM Colten Rosado * RAPID 3 TOTAL SCORE Answer Date of Assessment Author 26.7 01/23/2010 2:00 PM EDCotlen Phillipsy * FN TOTAL Answer Date of Assessment Author 20 01/23/2010 2:00 PM EDColten Phillipsy * PN TOTAL Answer Date of Assessment Author 01/23/2010 2:00 PM EDColten Phillipsy * PTGL TOTAL Answer Date of Assessment Author 01/23/2010 2:00 PM Colten Rosado acy * Considering all the ways in which illness and health conditions may affect you at this time, pleaseindicate below how you are doing? Answer Date of Assessment Author 10 01/23/2010 2:00 PM Colten Rosadoy * FN CONVERSION Answer Date of Assessment Author 6.7 01/23/2010 2:00 PM Colten Rosado documented as of this encounter Plan of Treatment Not on file documented as of this encounter Procedures * Due to [place] law, this organization might not be sharing [...] encounter Results * Due to [place] law, this organization might not be sharing negative HIV tests. * SED RATE ESR (01/23/2010) ESR (ERYTHROCYTE SEDIMENTATION RATE) 27 0 - 30 MM/HR [facility] 01/23/2010 01/23/2010 9:1 6 PM EDT Abel Fierro MD LAB SAME DAY RESULT Final Resul t Performing Organization Address [facility] Co de Phone Number [facility] [address] [place] [address] * (ABNORMAL) C-REACTIVE PROTEIN (CRP), QUANTITATIVE, SERUM INFLAMMATION (01/23/2010) C REACTIVE PROTEIN (CRP) 1.5(H) 0 - 0.7 MG/DL [facility] 01/23/2010 01/23/2010 9:1 6 PM EDT us Abel Fierro MD LABORATORY Final Result Performing Organization Address [facility]/ZIP Co de Phone Number [facility] [address] [place] [address] * CREATININE WITH GLOMERULAR FILTRATION RATE, ESTIMATED [...] RESULT Final Resul t Performing Organization Address City/State/[facility] Co de Phone Number [facility] [address] [place] [address] * (ABNORMAL) CBC 5 PART DIFF (01/23/2010) [...] Organization Address [facility] Co de Phone Number [facility] [address] [place] [address] * ASPARTATE AMINOTRANSFERASE (AST), SERUM (01/23/2010) AST (SGOT) 23 10 - 35 U/L [facility] 01/23/2010 01/23/2010 9:1 6 PM EDT us Abel Fierro MD LAB SAME DAY RESULT Final Resul t Performing Organization Address [facility] de Phone Number [facility] [address] [place] [id number] * ALANINE AMINOTRANSFERASE (ALT), SERUM (01/23/2010) ALT (SGPT) 26 6 - 40 U/L [facility] 01/23/2010 01/23/2010 9:1 6 PM EDT us Abel Fierro MD LAB SAME DAY RESULT Final Resul t Performing Organization Address [facility] de Phone Number [facility] [address] [place] [address] documented in this encounter Visit Diagnoses Diagnosis Rheumatoid arthritis(714.0)- Primary Rheumatoid arthritis documented in this encounter Care Teams Machine Adjuster Leader Relationship Specialty Start Date End Date Alberto Pacheco [address] [place] [address] PCP - General 07/19/08 05/24/13 Charly Saxena [facility] [address] [place] [address] PCP - General Internal Medicine 05/25/13 07/16/17 Cheryl Calderon MD [facility] Adult Medicine [address] [place] [address] PCP - General Internal Medicine 07/17/17 documented as of this encounter
--- OUTSIDE RECORDS SUMMARY | 2025-03-19 14:00 | XMS_ITS | Encounter Summary ---
Author Organization [facility] Address [address] [place] [address] Care Team Providers Care Rim Fire Charger Operator Name Role Phone Alberto Pacheco Primary Care Provider [phone] Charly Saxena Primary Care Provider [phone] Cheryl Calderon MD Primary Care Provider [phone] Encounter Details Date Type Department Care Team (Late st Contact Info) Description 09/02/2009 Orders Only [facility] Rheumatology [address] [place] [address] Abel Fierro MD [address] [place] [address] Social History Tobacco Use Types Packs/Day Years [...] Organization Address [facility] de Phone Number [facility] [address] [place] [address] * ASPARTATE AMINOTRANSFERASE (AST), SERUM (09/02/2009) AST (SGOT) 24 10 - 35 U/L [facility] 09/02/2009 09/02/2009 9:5 7 PM EDT us Abel Fierro MD LAB SAME DAY RESULT Final Resul t Performing Organization Address [facility] Phone Number [facility] [address] [place] [address] * CREATININE WITH GLOMERULAR FILTRATION RATE, ESTIMATED [...] Final Resul t Performing Organization Address City/[facility]/ZIP Co de Phone Number [facility] [address] [place] [address] * (ABNORMAL) CBC 5 PART DIFF (09/02/2009) [...] Final Resul t Performing Organization Address City/[facility]/ZIP Co de Phone Number [facility] [address] [place] [address] documented in this encounter Visit Diagnoses Diagnosis Rheumatoid arthritis(714.0) Rheumatoid arthritis documented in this encounter Care Teams Rim Fire Charger Operator Relationship Specialty Start Date End Date Alberto Pacheco [address] [place] [address] PCP - General 07/19/08 05/24/13 Charly Saxena [facility] [address] [place] [address] PCP - General Internal Medicine 05/25/13 07/16/17 Cheryl Calderon MD [facility] Medicine [address] [place] [address] PCP - General Internal Medicine 07/17/17 documented as of this encounter
--- OUTSIDE RECORDS SUMMARY | 2025-03-19 14:00 | XMS_ITS | Encounter Summary ---
Author Organization [facility] Address [address] [place] [address] Care Team Providers Care Time Checker Name Role Phone Alberto Pacheco Primary Care Provider [phone] Charly Saxena Primary Care Provider [phone] Cheryl Calderon MD Primary Care Provider Encounter Details Date Type Department Care Team (Late st Contact Info) Description 12/06/2009 Orders Only [facility] Rheumatology [address] [place] [address] Abel Fierro MD [address] [place] [address] Social History Tobacco Use Types Packs/Day Years [...] RESULT Final Resul t Performing Organization Address City/State/[facility] Co de Phone Number [facility] [address] [place] [address] * (ABNORMAL) CBC 5 PART DIFF (12/06/2009) [...] RESULT Final Resul t Performing Organization Address [facility] de Phone Number [facility] [address] [place] [address] * ASPARTATE AMINOTRANSFERASE (AST), SERUM (12/06/2009) AST (SGOT) 18 10 - 35 U/L [facility] 12/06/2009 12/06/2009 9:4 5 PM EDT Abel Fierro MD LAB SAME DAY RESULT Final Resul t Performing Organization Address [facility] de Phone Number [facility] [address] [place] [address] * ALANINE AMINOTRANSFERASE (ALT), SERUM (12/06/2009) ALT (SGPT) 23 6 - 40 U/L [facility] 12/06/2009 12/06/2009 9:4 5 PM EDT Abel Fierro MD LAB SAME DAY RESULT Final Resul t Performing Organization Address [facility] de Phone Number [facility] [address] [place] [address] documented in this encounter Visit Diagnoses Diagnosis Rheumatoid arthritis(714.0) Rheumatoid arthritis documented in this encounter Care Teams Time Checker Relationship Specialty Start Date End Date Alberto Pacheco [address] [place] [address] PCP - General 07/19/08 05/24/13 Charly Saxena [facility] [address] [place] [address] PCP - General Internal Medicine 05/25/13 07/16/17 Cheryl Calderon MD [facility] Medicine [address] [place] [address] PCP - General Internal Medicine 07/17/17 documented as of this encounter
== END 2025-03-19 13:36 | disposition home or self-care (01) ==
LOC: HO.MAMMO 13:35
PROVIDERS: PCP Nurse Practitioner Family; Visit Provider Student in an Organized Health Care Education/Training Program
DX: M81.0 Age-related osteoporosis without current pathological fracture (principal)
CPT/HCPCS: 77080